=== PATIENT | male | born 1945 | race Caucasian/White ===

== ENCOUNTER 2019-07-29 10:59 | Outpatient (CLI) | payer MEDICARE, OTHER, SELFPAY ==
[2019-07-29 11:34] LABS: Eosinophils # 0.5 10^3/uL (0.0-0.8); Eosinophils % 0.5 %; Hematocrit 36.4 % (42.0-52.0); Hemoglobin 11.1 g/dL (11.7-16.6); Lymphocytes # 93.9 10^3/uL (0.8-4.8); Lymphocytes % 93.9 %; Mean Corpuscular HGB Conc 30.5 g/dL (30.0-36.0); Mean Corpuscular Hemoglobin 27.7 pg (28.0-34.0); Mean Corpuscular Volume 90.8 fL (80-94); Mean Platelet Volume 10.1 fL (7.4-10.4); Monocytes # 0.9 10^3/uL (0.2-0.9); Monocytes % 0.9 %; Neutrophils # 4.4 10^3/uL (1.8-7.7); Neutrophils % 4.4 %; Nucleated Red Blood Cells % 0 %; Platelet Count 144 10^3/cmm (130-400); Red Blood Count 4.01 10^6/uL (4.1-5.3); Red Cell Distribution Width 13.3 % (12.1-15.1)
[2019-07-29 11:51] LABS: Alanine Aminotransferase 13 U/L (0-41); Albumin Level 4.2 g/dL (3.5-5.2); Alkaline Phosphatase 116 IU/L (40-130); Anion Gap 14.7 (5-19); Aspartate Amino Transferase 16 U/L (0-40); Blood Urea Nitrogen 34 mg/dL (8-23); Calcium 9.9 mg/dL (8.5-10.5); Carbon Dioxide 26 mmol/L (22-29); Chloride 101 mmol/L (98-107); Globulin 2.4 g/dL (1.3-4.6); Glucose 138 mg/dL (65-115); Lactate Dehydrogenase 218 U/L (135-225); Potassium 4.7 mmol/L (3.5-5.1); Sodium 137 mmol/L (136-145); Total Bilirubin 0.6 mg/dL (0.15-1.2); Total Protein 6.6 g/dL (6.6-8.7)
[2019-07-29 12:35] LABS: Slide Review Slide Review Perform; White Blood Count 99.9 10^3/uL (4.0-10.0)
--- NOTE | 2019-08-02 06:06 | ONC FU_ITS ---
Dr. Mann Patient Follow-Up Note Patient: Valente Renae Unit #: [id number]: 1945 Dicatated By: Gagandeep Mann M.D.Date of Visit:Jul 29, 2019 Onc Med Follow-up/Prog Note Chief Complaint: Chronic lymphocytic leukemia. History of Present Illness: This is a 74 year-old man with chronic lymphocytic leukemia, Kwok stage III. I had seen him initially in January of 2010 with a mild anemia and thrombocytopenia. At that time, he had been having episodes of low-grade fever with chills and generalized aching. Bone marrow aspiration/biopsy in February of 2010 was mildly hypercellular. It also showed evidence of a monoclonal B-cell lymphoproliferative process consistent with chronic lymphocytic leukemia. It comprised approximately 50% of the marrow cellularity. At that time the leukemia did not appear to be symptomatic, and he was initially just managed with observation. On a followup visit in November 2013 he had reported having 2 more febrile episodes. At that time he was noted to be mildly anemic with hemoglobin 10.7 g and his platelet count was normal at 144,000. His white blood cell count was elevated at 37,000, but that actually was down compared to the study the previous March. His LDH level was significantly elevated at 404/241 units per liter. Bone marrow aspiration/biopsy on 12/22/2013 showed 90 to 100% cellularity with the differential showing 72% lymphocytes. The chromosome analysis showed trisomy [address] scans showed interval splenomegaly with hamzah hepatis lymphadenopathy, the largest measuring 1.8 and 1.9 cm. Also noted was a 9 mm noncalcified pulmonary nodule in the left upper lobe. I had talked to him about the possibility of starting treatment, which he indicated he wanted to put off as long as possible. Followup laboratory studies in December 2013 showed some increase in his lymphocyte count. His hemoglobin was stable and his platelet count was just borderline low. His LDH level had returned to normal, and I opted to continue observation. During subsequent follow-up he continued to have occasional episodes of fever/chills, sometimes associated with nausea/vomiting and diarrhea. He was hospitalized again in January 2015. A subsequent HIDA scan showed no evidence of biliary obstruction, but the gallbladder ejection fraction was low at 19%. More recently he had been having pain in the right flank and right side of the back. He was noted to have a large cyst in the right kidney, and he underwent percutaneous drainage of the cyst on 07/24/2015. That procedure precipitated another spell . I had seen him for a follow-up visit on 08/09/2015. As there was no other obvious explanation for his symptoms, we opted to initiate treatment for the chronic lymphocytic leukemia. He returned on 08/22/2015 to begin cycle one of bendamustine/Rituxan. He did not complete treatment that day because of a mild infusion reaction with the Rituxan. However, with premedication, he was then able to complete his first cycle of treatment on 08/23 and 08/25/2015 with no acute toxicity. However, he subsequently presented with a generalized erythematous, itchy skin eruption. It was undoubtedly a hypersensitivity reaction, most likely to either the Rituxan or to the bendamustine. Allopurinol also was a possibility, though. He was given a short course of systemic steroid followed by topical steroid therapy. He returned 2 days later with swelling in the left arm. Venous Doppler showed features of thrombosis of the left cephalic vein from the anterior cubital fossa to the biceps. Other veins were noted to be patent. As such, I felt there was no definite indication for anticoagulation. On a followup visit in October 2015, the swelling and the skin eruption had resolved. He was feeling much better, and his hemoglobin had increased significantly, to 12.7 g. I did not attempt any further treatment. He was then continued on observation/expectant management. As of his follow-up visit on 08/22/2016 his white blood cell count was just mildly elevated at 17,000 with hemoglobin stable at 13.0 g and platelet count 135,000. He was seen again for a follow-up visit on 12/17/2016. His white blood cell count had increased to 42,000, his hemoglobin was stable at 12.8 g and his platelet count was normal at 148,000. He reported that a week earlier he did experience another episode of nausea/vomiting and chills. Fever was suspected but not documented. At the time of that visit his symptoms had improved significantly, and I opted to just continue with observation. As of his followup visit on 04/23/2017 he had experienced 2 further episodes with fever and nausea/vomiting. Both lasted only a few days and resolved without specific treatment. He had otherwise been feeling good. His white count at that point it increased to 58,000. Hemoglobin/hematocrit levels were stable. The platelet count was mildly decreased at 115,000. He continued observation/expectant management. His other medical illnesses include hypertension, hyperlipidemia, type 2 diabetes, and coronary artery disease. He also has chronic kidney disease which has progressed to stage IV. In October 2014 he was admitted to the hospital with complete heart block, and he underwent placement of a permanent pacemaker. INTERIM HISTORY: He was seen for a follow-up visit again on 11/03/2017. At that point his white blood cell count had increased to 76,800 with his hemoglobin mildly decreased to 10.8 g and platelet count mildly decreased at 101,000. He appeared to be getting more overtly symptomatic, and at that point I did recommend that he begin second line treatment with ibrutinib. In preparation for starting the ibrutinib, he began prophylaxis with allopurinol 300 mg daily. He broke out with an erythematous skin eruption after the first dosage, and it was put on hold. He was then given a prescription for Uloric, but that he also stopped after the first dosage because of concerns of side effects. Ultimately, I did opt to treat him prophylactically with rasburicase, as I felt that he would be at very high risk for tumor lysis. He was given a single dose of rasburicase on 02/11/2018. He then started ibrutinib 420 mg daily on 02/12/2018. During subsequent follow-up, his white blood cell count had initially remained stable or slightly increased, but there was some improvement in the hemoglobin/hematocrit levels. As of 06/19/2018 the hemoglobin was 11.5 g with white blood cell count 82,000 and platelet count 133,000. He continued ibrutinib at 420 mg daily. He was seen for a scheduled visit on 09/14/2018. At that time he had multiple complaints including fatigue, excessive somnolence, and some confusion. His blood counts looked okay, but with those changes I did opt to have him stop the ibrutinib. As of his follow-up visit on 10/07/2018 he was feeling somewhat better, and he continued on observation/expectant management. On 11/03/2018 he had reported recurrence of fever/chills and nausea. He was given IV hydration for 2 days, and his symptoms improved. The preceding week he had required IV hydration for similar symptoms. At that point it did appear likely that his CLL had become symptomatic again. On 12/03/2018 he restarted treatment with ibrutinib at a reduced dosage of 280 mg daily. At day 15 he was given an infusion of rasburicase due to an increase in his uric acid level. During further follow-up, there was an increase in his lymphocyte count, as expected, but he was otherwise tolerating the treatment well. I had seen him for a follow-up visit on 01/27/2019. At that point he had developed severe muscle cramping, and I did opt to put his ibrutinib on hold. On 02/14/2019 he was admitted to the hospital after presenting to the emergency room with chest pain. He was hypertensive, and his creatinine at increased to 3.2 mg/dL. He had a slightly elevated troponin, significance of which was uncertain. A nuclear stress test showed some olvin-infarct ischemia, but mild. He had cardiology consultation with Dr. Orellana, and medical management was recommended. At discharge his creatinine had come back down to 2.8 mg/dL. Metoprolol was added to his medication regimen. He was seen for a follow-up visit on 02/24/2019. At that point he was acutely ill with another sick spell , including nausea/vomiting and diarrhea. He was given IV hydration and symptomatic management. His ibrutinib remained on hold. As of his follow-up visit on 03/03/2019 he was feeling better, and at that point he restarted ibrutinib with a further dose reduction to 140 mg daily. He is seen for a follow-up visit. He is seen for a follow-up visit. He has been feeling pretty good generally, though he has again started having some muscle cramps in his legs and feet since he restarted the ibrutinib. His energy, though, is gaining. His ECOG score is 1. He has good appetite. He has no fever or night sweats. He has some sinus drainage and cough. He does not complain of shortness of breath or chest pain. He has a little bit of heartburn, and he also has constipation. He has frequent urination. He had also noticed some increasing joint pain, mainly in the elbows and knees, but that has now leveled out. He has numbness/tingling in his feet. Medications: Aspirin 1 (81 mg) Tablet Oral daily, Atorvastatin Calcium 1 Tablet (of 10 mg) Oral daily, Cholecalciferol 1 (1000 Units) Tablet Oral daily, Clopidogrel Bisulfate 1 Tablet (of 75 mg) Oral daily, Dutasteride 1 (0.5 mg) Capsule Oral daily, Flonase 1 (50 mcg/act) Suspension Nasal daily, Ibrutinib 1 Capsule Oral daily, Isosorbide Mononitrate ER 1 Tablet (of 60 mg) Tablet SR 24 HR Oral daily, Januvia 1 Tablet (of 100 mg) Oral daily, Lantus 90 Units (of 100 Units/mL) Subcutaneous daily, Loratadine 1 Tablet (of 10 mg) Oral daily, Losartan Potassium 1 Tablet (of 50 mg) Oral daily, Magnesium Oxide 1 Tablet (of 500 ) Oral daily, Metoprolol Tartrate 1 Tablet (of 25 mg) Oral b.i.d., Nitroglycerin Tablet, sublingual Sublingual PRN, Norvasc 1 (10 mg) Tablet Oral daily, NovoLOG (100 Units/mL) Subcutaneous Take as Directed, Tylenol 2 (325 mg) Tablet Oral q 4 hours PRN Allergies: Allopurinol and Iodine. Review of Systems: Constitutional - His energy is pretty good. He does light work at around his home. His appetite is good and weight is stable. No fever, chills, hot flashes, or night sweats. ECOG score is 1, ENMT - He has sinus congestion/drainage with a slight cough. No mouth sores. No sore throat or difficulty swallowing, Hematologic/Lymphatic - He bruises easily, Respiratory - No shortness of breath. No pleuritic pain or hemoptysis, Cardiovascular - No angina pain. No palpitations, Gastrointestinal - No nausea or vomiting. He has had some mild heartburn lately. He has constipation. No blood in the stool or black stools, Genitourinary (M) - No dysuria or hematuria. He has urinary frequency. No urgency or incontinence, Musculoskeletal - He has pain in his elbows and knees, Integumentary - No skin complications, Neurologic - No headache. He has occasional dizziness. He has numbness and tingling in his feet, Psychiatric - No anxiety or depression. No insomnia. Vital Signs: Performed on Jul 29, 2019 13:12 Height - 71.00 in Weight - 246.2 lbs (LOW) BSA - 2.30 sq.m BMI - 34.34 (HIGH) Temperature - 97.8 F (LOW) Pulse - 86 /min Respiration - 24 /min BP - 144/72 mm(hg) (HIGH) O2 Sat - 96 % Pain - 0 Physical Examination: Constitutional - He looks pretty good generally, Eyes - Sclerae nonicteric. Conjunctivae clear, ENMT - There are no lesions noted in the oral cavity, Hematologic/Lymphatic - No cervical, clavicular, or axillary adenopathy, Respiratory - Lungs are clear with good air movement bilaterally, Cardiovascular - Heart rhythm is regular. There is a II/ systolic murmur. There is no gallop or rub noted, Abdomen - Mildy distended. Liver and spleen are not enlarged. There is no abdominal mass or ascites noted and there is no inguinal adenopathy, Extremities - There are mild venous stasis changes. There is slight edema, Neurologic - No focal neurologic deficits noted. Lab/Imaging: Test performed on Jul 29, 2019 11:07 LDH (Total) 218 U/L Sodium 137 mmol/L Potassium 4.7 mmol/L Chloride 101 mmol/L CO2 26 mmol/L Anion Gap 14.7 BUN 34 mg/dL Creatinine 2.5 mg/dL Cr Clearance (Est) 38.4300 mL/min Glucose 138 mg/dL Calcium 9.9 mg/dL Protein, Total 6.6 g/dL Albumin 4.2 g/dL Globulin 2.4 g/dL Bilirubin, Total 0.6 mg/dL ALT (SGPT) 13 U/L AST (SGOT) 16 U/L Alkaline Phosphatase 116 IU/L WBC 99.9 10 3/uL RBC 4.01 10 6/uL HGB 11.1 g/dL HCT 36.4 % MCV 90.8 fL MCH 27.7 pg MCHC 30.5 g/dL RDW 13.3 % Platelet Count 144 10 3/cmm MPV 10.1 fL Neutrophils 4.4 10 3/uL Lymphocytes 93.9 10 3/uL Monocytes 0.9 10 3/uL Eosinophils 0.5 10 3/uL Basophils 0.0 10 3/uL Neutrophil % 4.4 % Lymphocyte % 93.9 % Monocyte % 0.9 % Eosinophil % 0.5 % Basophils % 0.0 % CBC Slide Review Slide Review Perform SLIDE REVIEW AGREES WITH AUTOMATED RESULTS Impression: 1. Patient with chronic lymphocytic leukemia, initially diagnosed in February 2010. He was initially managed with observation, as he had multiple other medical illnesses and he desired conservative management. 2. During his follow-up he continued to have wide fluctuations in his lymphocyte count, for which I had found no rational explanation. He also had remained mildly anemic. His platelet counts had varied between low normal to mildly decreased. On several occasions his LDH level had been significantly elevated, but it was never consistently elevated. 3. Following his visit in July 2015 I did opt to proceed with a trial of therapy with bendamustine/Rituxan. He had a mild infusion reaction with the initial attempt at the Rituxan infusion, and it was abandoned. He then returned on 08/24/2015 and with steroid premedication he was able to complete cycle 1 of bendamustine/Rituxan with no acute toxicity. 4. He subsequently presented with generalized erythroderma, consistent with hypersensitivity reaction to his treatment. He also has developed swelling in the upper extremities. A venous Doppler was suggestive of superficial venous thrombosis in the left arm, though I did not see any evidence of that clinically. The swelling subsequently improved, and the skin eruption subsequently resolved. It is uncertain whether the reaction was to Rituxan, to bendamustine, or to allopurinol. 5. Clinically he has had a very good response to the treatment. His other medical illnesses include: 6. Hypertension. 7. Hyperlipidemia. 8. Type II diabetes. 9. Chronic kidney disease. 10. Coronary artery disease. 11. History of complete heart block, requiring placement of permanent pacemaker. He had significant clinical improvement following a single cycle of treatment with bendamustine/Rituxan in July 2015. The treatment did result in significant toxicity. He had a good recovery and he was then followed on observation/expectant management. As of his follow-up visit on 11/03/2017 he has been showing a gradual increase in his lymphocyte count, and it appeared that his disease was getting symptomatic again. At that point I had recommended that he begin second line treatment with ibrutinib. In preparation for the ibrutinib, he started prophylaxis with allopurinol 300 mg daily, but he developed a generalized skin eruption after the initial dosage. He was then given a prescription for Uloric, but that he also stopped after the initial dosage because of a possible reaction. Ultimately, I did opt to treat him prophylactically with rasburicase, as I felt that he would be at high risk for tumor lysis. He received a single infusion of rasburicase on 02/11/2018, and he then started treatment with ibrutinib 420 mg daily on 02/12/2018. During subsequent follow-up his white blood cell count had initially remained stable, both some improvement in his hemoglobin/hematocrit levels. As of 06/19/2018 his hemoglobin was 11.5 g with white blood cell count 82,000 and platelet count 133,000. He continued ibrutinib at 420 mg daily. As of his follow-up visit on 09/14/2018 his ibrutinib was put on hold due to multiple complaints including fatigue, excessive somnolence, and confusion. During subsequent follow-up his blood counts had remained adequately controlled, though he continued to have significant fatigue. During subsequent follow-up he had multiple episodes of fever and nausea/vomiting, requiring IV hydration. He also had a significant increase in his lymphocyte count, and it did appear likely that his CLL was again symptomatic. On 12/03/2018 he restart her treatment with ibrutinib at a reduced dosage of 280 mg daily. At day 15 he was given an infusion of rasburicase due to an increase in his uric acid level. During further follow-up there was an increase in his lymphocyte count, as expected, but he had no further sick spells or other obvious CLL related symptoms. At his follow-up visit on 01/27/2019 he complained of severe muscle cramping, and his ibrutinib was put on hold. On 02/14/2019 he was admitted to the hospital with chest pain. He was also hypertensive, and his creatinine had increased to 3.2 mg/dL. He was seen by Dr. Orellana, and medical management was recommended. Metoprolol was added to his medication regimen. At discharge his creatinine had come down to 2.8 mg/dL. He presented on 02/24/2019 with an acute episode of nausea/vomiting, diarrhea, and weakness. He had chills and presumed fever. The symptoms were similar to his previous episodes. His lymphocyte count appeared to have come down significantly after the ibrutinib, but in retrospect that was most likely an erroneous laboratory result. His symptoms did improve with IV hydration and symptomatic measures. As of his follow-up visit on 03/03/2019 he restarted ibrutinib with a further dose reduction to 140 mg daily. During follow-up there was an increase in his lymphocyte count, as expected, but that has now stabilized. He has remained mildly anemic and he continues have mild thrombocytopenia. He has had some joint pain and muscle cramps with the ibrutinib, but thus far those side effects have been tolerable. Overall, his clinical status has improved. Plan: He will continue ibrutinib at 140 mg daily. He will be scheduled for a follow-up visit in 6 weeks. Signed By: Gagandeep Mann M.D. <<Signature on File>>
== END 2019-07-29 11:00 | disposition home or self-care (01) ==
LOC: ONCMED 10:59
PROVIDERS: Family Provider Family Medicine; PCP Family Medicine; Visit Provider Internal Medicine Medical Oncology
DX: C91.10 Chronic lymphocytic leukemia of B-cell type not having achieved remission (principal); D69.59 Other secondary thrombocytopenia; M25.50 Pain in unspecified joint; M79.10 Myalgia, unspecified site; T45.1X5A Adverse effect of antineoplastic and immunosuppressive drugs, initial encounter; E78.5 Hyperlipidemia, unspecified; I25.10 Atherosclerotic heart disease of native coronary artery without angina pectoris; I12.9 Hypertensive chronic kidney disease with stage 1 through stage 4 chronic kidney disease, or unspecified chronic kidney disease; N18.4 Chronic kidney disease, stage 4 (severe); E11.42 Type 2 diabetes mellitus with diabetic polyneuropathy; E11.22 Type 2 diabetes mellitus with diabetic chronic kidney disease; Z79.82 Long term (current) use of aspirin; Z79.899 Other long term (current) drug therapy; Z79.02 Long term (current) use of antithrombotics/antiplatelets; Z79.4 Long term (current) use of insulin; Z95.0 Presence of cardiac pacemaker; Z92.25 Personal history of immunosuppression therapy
CPT/HCPCS: 36415; 80053; 83615; 85025; 99214

== ENCOUNTER 2019-09-13 14:45 | Outpatient (CLI) | payer MEDICARE, OTHER, SELFPAY ==
[2019-09-13 16:35] LABS: Eosinophils # 0.1 10^3/uL (0.0-0.8); Eosinophils % 0.2 %; Hematocrit 33.6 % (42.0-52.0); Hemoglobin 10.3 g/dL (11.7-16.6); Lymphocytes % 91.9 %; Mean Corpuscular HGB Conc 30.7 g/dL (30.0-36.0); Mean Corpuscular Hemoglobin 28.6 pg (28.0-34.0); Mean Corpuscular Volume 93.3 fL (80-94); Mean Platelet Volume 10.2 fL (7.4-10.4); Monocytes # 0.8 10^3/uL (0.2-0.9); Monocytes % 1.2 %; Neutrophils # 4.2 10^3/uL (1.8-7.7); Nucleated Red Blood Cells % 0 %; Platelet Count 137 10^3/cmm (130-400); Red Cell Distribution Width 14.4 % (12.1-15.1)
[2019-09-13 16:52] LABS: Alanine Aminotransferase 12 U/L (0-41); Alkaline Phosphatase 88 IU/L (40-130); Anion Gap 17.5 (5-19); Aspartate Amino Transferase 12 U/L (0-40); Blood Urea Nitrogen 46 mg/dL (8-23); Calcium 9.5 mg/dL (8.5-10.5); Carbon Dioxide 24 mmol/L (22-29); Chloride 103 mmol/L (98-107); Globulin 2.6 g/dL (1.3-4.6); Glucose 129 mg/dL (65-115); Lactate Dehydrogenase 173 U/L (135-225); Osmolality Calculated 290 mOsm/kg (285-295); Potassium 4.5 mmol/L (3.5-5.1); Sodium 140 mmol/L (136-145); Total Bilirubin 0.4 mg/dL (0.15-1.2); Total Protein 6.6 g/dL (6.6-8.7)
[2019-09-13 18:08] LABS: Slide Review Slide Review Perform
[2019-09-13 18:09] LABS: Neutrophils % 6.3 %
[2019-09-13 18:10] LABS: White Blood Count 67.4 10^3/uL (4.0-10.0)
[2019-09-13 18:12] LABS: Absolute Segmented Neutrophil 5.3 10/cmm (1.6-7.1); Lymphocytes 89 %; Monocytes Absolute 1.3 10^3/cmm (0.1-0.6); Segmented Neutrophils 8 %; Total Cells Counted 100 (0-100)
[2019-09-13 18:13] LABS: Anisocytosis 1+; Platelet Estimate Normal (Normal); Poikilocytosis 1+; Smudge Cells 1+
[2019-09-13 18:15] LABS: Blastocytes 1 % (0-0)
== END 2019-09-13 14:46 | disposition home or self-care (01) ==
LOC: ONCMED 15:54
PROVIDERS: Family Provider Family Medicine; PCP Family Medicine; Visit Provider Internal Medicine Medical Oncology
DX: C91.10 Chronic lymphocytic leukemia of B-cell type not having achieved remission (principal)
CPT/HCPCS: 80053; 83615; 85007; 85025

== ENCOUNTER 2019-12-02 10:04 | Emergency (ER) | payer MEDICARE, OTHER, SELFPAY ==
[2019-12-02 10:06] VITALS: BP 125/71; PULSE 68; RESP 16; TEMP 36.6; O2SAT 94; BMI 35.9
--- NOTE | 2019-12-02 10:29 | XR_ITS ---
WS: [id number] Portable AP upright chest, 12/02/2019 Clinical Data: cp Comparison: Portable chest, 02/14/2019. Findings: No nodules, masses or effusions are seen. The heart is normal. The pulmonary vascularity is not increased. No pneumonia or pneumothorax is seen. Midline sternotomy sutures are present. There i s a permanent pacemaker with wires in the cardiac chambers. The generator overlies the left axilla. M onitor leads are on the chest wall. XR/XR chest 1V portable [id number] Impression: No change in pacemaker.
--- NOTE | 2019-12-02 10:29 | ECG_ITS ---
Measurements Intervals [place] Rate: 77 P: 154 [place]: 215 QRS: -78 QRSD: 177 T: 68 QT: 419 QTc: 476 ELECTRONIC ATRIAL PACEMAKER ELECTRONIC VENTRICULAR PACEMAKER ABNORMAL RHYTHM ECG Compared to ECG 02/14/2019 09:21:45 No significant changes Electronically Signed On 12-02-2019 20:54:17 CDT by Orlando Juarez M.D. [email or web address]
[2019-12-02 10:44] LABS: Eosinophils # 0.5 10^3/uL (0.0-0.8); Eosinophils % 0.5 %; Hematocrit 37.7 % (42.0-52.0); Hemoglobin 11.6 g/dL (11.7-16.6); Lymphocytes % 92.6 %; Mean Corpuscular HGB Conc 30.8 g/dL (30.0-36.0); Mean Corpuscular Hemoglobin 28.6 pg (28.0-34.0); Mean Corpuscular Volume 92.9 fL (80-94); Mean Platelet Volume 10.9 fL (7.4-10.4); Monocytes # 1.1 10^3/uL (0.2-0.9); Monocytes % 1.2 %; Neutrophils # 4.9 10^3/uL (1.8-7.7); Neutrophils % 5.4 %; Nucleated Red Blood Cells % 0 %; Platelet Count 140 10^3/cmm (130-400); Red Blood Count 4.06 10^6/uL (4.1-5.3); Red Cell Distribution Width 14.6 % (12.1-15.1)
--- NOTE | 2019-12-02 10:46 | ED_ITS ---
HPI - Chest Pain General: Chief Complaint: Chest Pain Stated Complaint: CHEST PAIN Time Seen by Provider: 12/02/19 10:17 History of Present Illness: HPI narrative: Atypical mid epigastric and lower chest pain that began while the patient was eating a sausage biscuit. Patient felt short of breath and nauseated and diaphoretic. Patient does have a cardiac history and states that today's episode was different from any he has had in the past. Patient is pain free in the ER. MD complaint: chest pain Pertinent past history: coronary artery disease, prior GA and CABG Onset (ago): minute(s) Timing of current episode: now resolved Prior episodes: Yes Onset: after eating Pain location: epigastric Pain radiation: none Severity: severe Quality: burning Relieving factors: nothing Exacerbating factors: nothing Associated symptoms: Reports diaphoresis, dyspnea and nausea Treatment prior to arrival: none Review of Systems General: Reports: 10 or more systems reviewed and unremarkable except in HPI and below Const: Reports: diaphoresis Resp: Reports: dyspnea GI: Reports: nausea PFSH ED PFSH: Medical History ASHD (arteriosclerotic heart disease) Carotid stenosis, bilateral CKD (chronic kidney disease) CLL (chronic lymphocytic leukemia) Diabetes Dyslipidemia HTN (hypertension) Surgical History S/P CABG (coronary artery bypass graft) S/P PTCA (percutaneous transluminal coronary angioplasty) Status cardiac pacemaker Family History Mother Diabetes CAD (coronary artery disease) Father CAD (coronary artery disease) Hypertension Other Stroke Social History Smoking and tobacco status: former smoker Alcohol intake: current Alcohol intake frequency: holidays/special occasions only Household members: spouse Marital status: Physical Exam Const: COMMON NORMALS: no acute distress, average body habitus, alert and well nourished GENERAL APPEARANCE: cooperative, comfortable and well kempt; not in distress HENMT: COMMON NORMALS: normocephalic, atraumatic, hearing grossly normal bilaterally, external ears normal, EAC's normal, TM's normal bilaterally, Normal external nose present, Normal nasal mucous membranes and turbinates present, moist oral mucous membranes, oropharynx normal, dentition normal and gingiva normal HEAD & SCALP: normocephalic and atraumatic NOSE: Normal external nose present and Normal nasal mucous membranes and turbinates present EXTERNAL EAR: Yes external ears normal EXTERNAL AUDITORY CANAL: EAC's normal TYMPANIC MEMBRANE: TM's normal bilaterally Eye: COMMON NORMALS: Equal, round and reactive pupils present, EOMs intact bilaterally, conjunctivae normal, no scleral icterus, no papilledema, normal visual sarah by confrontation and fundi normal bilaterally CONJUNCTIVA: Yes conjunctivae normal PUPIL: Yes Equal, round and reactive pupils present DIRECT OPHTHALMOSCOPY: Yes no papilledema and Yes fundi normal bilaterally Neck/C-Spine: COMMON NORMALS: full ROM, no lymphadenopathy, supple, no meningeal signs, no JVD, Thyroid normal and No carotid bruits THYROID: Thyroid normal Chest: COMMONS NORMALS: normal inspection of the chest and normal palpation of entire chest wall Resp: COMMON NORMALS: normal respiratory effort, No retractions, No use of accessory muscles, clear to auscultation bilaterally and percussion normal AUSCULTATION: clear to auscultation bilaterally PERCUSSION: percussion normal Cardio: COMMON NORMALS: no JVD, regular rate, regular rhythm, S1 normal heart sound present, S2 normal heart sound present, No gallops present (Cardio), No clicks present (Cardio), No murmurs present (Cardio), No rub (Cardio) and Peripheral pulses 2+ throughout RATE: regular rate RHYTHM: regular rhythm HEART SOUNDS: S1 normal heart sound present and S2 normal heart sound present PERIPHERAL PULSES: Peripheral pulses 2+ throughout GI: COMMON NORMALS: Normal to inspection, nondistended, normoactive bowel s ounds present, Soft to palpation, non-tender, No hepatosplenomegaly present, no masses and no bruits PALPATION: Yes Soft to palpation and Yes No hepatosplenomegaly present Back/Pelvis: COMMON NORMALS: thoracic and lumbar spine normal to inspection, no thoracic nor lumbar tenderness, thoraco-lumbar ROM normal and straight leg raise negative bilaterally Extremity: COMMON NORMALS: normal to inspection, full ROM, capillary refill normal, no joint enlargement, no clubbing, cyanosis or edema, no calf tenderness and no pedal edema Neuro: SENSORIUM/ORIENTATION: Yes alert and Yes somnolent MENINGEAL SIGNS: Yes no meningeal signs Psych: APPEARANCE: Yes well kempt Skin: COMMON NORMALS: no rashes or lesions noted, no wounds, no jaundice and no mottling GENERAL SKIN EXAM: no rashes or lesions noted Course Vital Signs: Vital signs: Vital Signs Temperature 97.9 F 12/02/19 10:06 Pulse Rate 63 12/02/19 12:00 Respiratory Rate 16 12/02/19 12:00 Blood Pressure 130/83 12/02/19 12:00 Pulse Oximetry 98 12/02/19 12:00 MDM - Chest Pain Lab Data: Labs: Lab Results 12/02/19 12/02/19 12/02/19 Range/Units 10:00 10:00 10:00 WBC 91.8 H* (4.0-10.0) 10^3/ uL RBC 4.06 L (4.1-5.3) 10^6/u L Hgb 11.6 L (11.7-16.6) g/dL Hct 37.7 L (42.0-52.0) % MCV 92.9 (80-94) fL MCH 28.6 (28.0-34.0) pg MCHC 30.8 (30.0-36.0) g/dL RDW 14.6 (12.1-15.1) % Plt Count 140 (130-400) 10^3/c mm MPV 10.9 H (7.4-10.4) fL Neut % (Auto) 5.4 % Lymph % (Auto) 92.6 % [place] % (Auto) 1.2 % Eos % (Auto) 0.5 % Baso % (Auto) 0.0 % Neut # (Auto) 4.9 (1.8-7.7) 10^3/u L Lymph # (Auto) 85.0 H (0.8-4.8) 10^3/u L [place] # (Auto) 1.1 H (0.2-0.9) 10^3/u L Eos # (Auto) 0.5 (0.0-0.8) 10^3/u L Baso # (Auto) 0.0 (0.0-0.1) 10^3/u L Nucleated RBC % (a uto) 0 % Nucleated RBCs # 0.0 /100WBC Sodium 139 (136-145) mmol/L Potassium 5.0 (3.5-5.1) mmol/L Chloride 101 (98-107) mmol/L Carbon Dioxide 23 (22-29) mmol/L Anion Gap 20.0 H (5-19) BUN 42 H (8-23) mg/dL Creatinine 2.7 H (0.7-1.2) mg/dL Glucose 242 H (65-115) mg/dL Calculated Osmolal ity 294 (285-295) mOsm/k g Calcium 9.9 (8.5-10.5) mg/dL Total Bilirubin 0.9 (0.15-1.2) mg/dL AST 39 (0-40) U/L ALT 23 (0-41) U/L Alkaline Phosphata se 99 (40-130) IU/L Troponin T Baselin e 53 H (0-15) ng/L Troponin T 120 Min [place] (0-15) ng/L Delta Troponin T (0-10) ABS# NT-Pro-B Natriuret Pep 424 (0-450) pg/mL Total Protein 6.8 (6.6-8.7) g/dL Albumin 4.6 (3.5-5.2) g/dL Globulin 2.2 (1.3-4.6) g/dL Lipase 472 H (13-60) U/L /05/12 Range/Units 12:22 WBC (4.0-10.0) 10^3/ uL RBC (4.1-5.3) 10^6/u L Hgb (11.7-16.6) g/dL Hct (42.0-52.0) % MCV (80-94) fL MCH (28.0-34.0) pg MCHC (30.0-36.0) g/dL RDW (12.1-15.1) % Plt Count (130-400) 10^3/c mm MPV (7.4-10.4) fL Neut % (Auto) % Lymph % (Auto) % [place] % (Auto) % Eos % (Auto) % Baso % (Auto) % Neut # (Auto) (1.8-7.7) 10^3/u L Lymph # (Auto) (0.8-4.8) 10^3/u L [place] # (Auto) (0.2-0.9) 10^3/u L Eos # (Auto) (0.0-0.8) 10^3/u L Baso # (Auto) (0.0-0.1) 10^3/u L Nucleated RBC % (a uto) % Nucleated RBCs # /100WBC Sodium (136-145) mmol/L Potassium (3.5-5.1) mmol/L Chloride (98-107) mmol/L Carbon Dioxide (22-29) mmol/L Anion Gap (5-19) BUN (8-23) mg/dL Creatinine (0.7-1.2) mg/dL Glucose (65-115) mg/dL Calculated Osmolal ity (285-295) mOsm/k g Calcium (8.5-10.5) mg/dL Total Bilirubin (0.15-1.2) mg/dL AST (0-40) U/L ALT (0-41) U/L Alkaline Phosphata se (40-130) IU/L Troponin T Baselin e (0-15) ng/L Troponin T 120 Min [place] 48.62 H (0-15) ng/L Delta Troponin T -4.38 L (0-10) ABS# NT-Pro-B Natriuret Pep (0-450) pg/mL Total Protein (6.6-8.7) g/dL Albumin (3.5-5.2) g/dL Globulin (1.3-4.6) g/dL Lipase (13-60) U/L Discharge Plan Discharge Patient Disposition: Home, Self-Care Clinical Impression: Atypical chest pain Condition: Stable Prescriptions: No Action nitroglycerin [Nitrostat] 0.4 mg tablet, sublingual 0.4 mg SUBLINGUAL Q5M PRN (Reason: Chest Pain) RF: 0 atorvastatin 10 mg tablet 10 mg PO DAILY RF: 0 amlodipine 10 mg tablet 10 mg PO DAILY RF: 0 losartan 50 mg tablet 50 mg PO DAILY RF: 0 clopidogrel 75 mg tablet 75 mg PO DAILY RF: 0 metoprolol tartrate 25 mg tablet 25 mg PO BID RF: 0 dutasteride [Avodart] 0.5 mg capsule 0.5 mg PO DAILY RF: 0 ibrutinib 140 mg tablet 280 mg PO DAILY RF: 0 Januvia 100 mg tablet 100 mg PO DAILY RF: 0 cholecalciferol (vitamin D3) 25 mcg (1,000 unit) capsule 25 mcg PO DAILY RF: 0 magnesium oxide 400 mg magnesium tablet 400 mg PO BID RF: 0 loratadine 10 mg tablet 10 mg PO DAILY RF: 0 aspirin [Aspir-81] 81 mg tablet,delayed release (DR/EC) 81 mg PO DAILY RF: 0 Colace 100 mg Capsule 100 mg PO BID PRN (Reason: Constipation) RF: 0 Flonase Allergy Relief 50 mcg/actuation [place],Suspension 1 spray INTRANASAL BID RF: 0 Novolog Flexpen U-100 Insulin 100 unit/mL (3 mL) Insulin Pen See Rx Instructions .ROUTE .COMPLEX RF: 0 Lantus Solostar U-100 Insulin 100 unit/mL (3 mL) Insulin Pen 50 unit SUBCUT BEDTIME RF: 0 diclofenac sodium 1 % Gel 4 g TOPICAL QID PRN (Reason: Pain) RF: 0 isosorbide mononitrate 30 mg tablet extended release 24 hr 60 mg PO QAM RF: 0 Discharge Orders: Discharge Order (Routine); Ordered 12/02/19 Ordered By: Toño Hensley Referrals: Alejandro Macias MD [Primary Care Provider] - Coding Level of Care Code ED Pcas for Chg Fwd Exam Comprehensive
[2019-12-02 10:51] LABS: Troponin(5th) Baseline 53 ng/L (0-15)
[2019-12-02 11:00] LABS: Alanine Aminotransferase 23 U/L (0-41); Albumin Level 4.6 g/dL (3.5-5.2); Alkaline Phosphatase 99 IU/L (40-130); Aspartate Amino Transferase 39 U/L (0-40); Blood Urea Nitrogen 42 mg/dL (8-23); Calcium 9.9 mg/dL (8.5-10.5); Carbon Dioxide 23 mmol/L (22-29); Chloride 101 mmol/L (98-107); Globulin 2.2 g/dL (1.3-4.6); Glucose 242 mg/dL (65-115); NT Pro B Type Natriuretic Pept 424 pg/mL (0-450); Osmolality Calculated 294 mOsm/kg (285-295); Sodium 139 mmol/L (136-145); Total Bilirubin 0.9 mg/dL (0.15-1.2); Total Protein 6.8 g/dL (6.6-8.7)
[2019-12-02 11:01] LABS: Slide Review Slide Review Perform; White Blood Count 91.8 10^3/uL (4.0-10.0)
[2019-12-02 11:16] LABS: Lipase 472 U/L (13-60)
[2019-12-02 12:00] VITALS: BP 130/83; PULSE 63; RESP 16; O2SAT 98
--- NOTE | 2019-12-02 12:29 | ECG_ITS ---
Measurements Intervals [place] Rate: 62 P: 152 CA: 195 QRS: -70 QRSD: 188 T: 58 QT: 455 QTc: 464 ELECTRONIC ATRIAL PACEMAKER ELECTRONIC VENTRICULAR PACEMAKER ABNORMAL RHYTHM ECG Compared to ECG 02/14/2019 09:21:45 No significant changes Electronically Signed On 12-02-2019 21:01:47 CDT by Orlando Juarez M.D. [email or web address]
[2019-12-02 12:55] LABS: Troponin 5 2HR 48.62 ng/L (0-15)
[2019-12-02 12:57] LABS: Troponin 5 2HR Delta -4.38 ABS# (0-10)
[2019-12-02 13:48] VITALS: BP 142/65; PULSE 62; RESP 14
== END 2019-12-02 13:55 | disposition home or self-care (01) ==
PROVIDERS: Emergency Provider Family Medicine; PCP Family Medicine
DX: R07.89 Other chest pain (principal); Z79.02 Long term (current) use of antithrombotics/antiplatelets; Z79.82 Long term (current) use of aspirin; Z79.4 Long term (current) use of insulin; E11.9 Type 2 diabetes mellitus without complications; E78.5 Hyperlipidemia, unspecified; I10 Essential (primary) hypertension; Z95.1 Presence of aortocoronary bypass graft; Z95.0 Presence of cardiac pacemaker; Z87.891 Personal history of nicotine dependence
CPT/HCPCS: 12345; 36415; 71045; 80053; 83690; 83880; 84484; 85025; 93005; 99283; 99284

== ENCOUNTER 2020-01-19 09:15 | Outpatient (CLI) | payer MEDICARE, OTHER, SELFPAY ==
[2020-01-19 09:53] LABS: Basophils % 0.1 %; Eosinophils # 0.3 10^3/uL (0.0-0.8); Eosinophils % 0.6 %; Lymphocytes # 47.3 10^3/uL (0.8-4.8); Lymphocytes % 90.5 %; Mean Corpuscular HGB Conc 30.8 g/dL (30.0-36.0); Mean Corpuscular Hemoglobin 28.2 pg (28.0-34.0); Mean Corpuscular Volume 91.8 fL (80-94); Mean Platelet Volume 10.6 fL (7.4-10.4); Monocytes # 0.6 10^3/uL (0.2-0.9); Monocytes % 1.1 %; Neutrophils # 3.91 10^3/uL (1.8-7.7); Neutrophils % 7.4 %; Nucleated Red Blood Cells % 0 %; Platelet Count 114 10^3/cmm (130-400); Red Blood Count 4.25 10^6/uL (4.1-5.3); Red Cell Distribution Width 14.2 % (12.1-15.1)
[2020-01-19 10:10] LABS: Alanine Aminotransferase 13 U/L (0-41); Albumin Level 4.5 g/dL (3.5-5.2); Alkaline Phosphatase 96 IU/L (40-130); Anion Gap 14.8 (5-19); Aspartate Amino Transferase 11 U/L (0-40); Blood Urea Nitrogen 45 mg/dL (8-23); Calcium 9.9 mg/dL (8.5-10.5); Carbon Dioxide 24 mmol/L (22-29); Chloride 102 mmol/L (98-107); Globulin 2.2 g/dL (1.3-4.6); Glucose 300 mg/dL (65-115); Osmolality Calculated 291 mOsm/kg (285-295); Potassium 4.8 mmol/L (3.5-5.1); Sodium 136 mmol/L (136-145); Total Bilirubin 0.6 mg/dL (0.15-1.2); Total Protein 6.7 g/dL (6.6-8.7); Uric Acid 6.8 mg/dL (3.4-7.0)
[2020-01-19 10:23] LABS: Slide Review Slide Review Perform; White Blood Count 52.3 10^3/uL (4.0-10.0)
--- NOTE | 2020-01-23 15:55 | ONC FU_ITS ---
[facility] Patient Note Patient: Valente Renae Unit #: [id number]: 1945 Dictated By: Naga SantamariaDate of Visit: Jan 19, 2020 Onc MED Follow-Up/Prog Note Chief Complaint: Chronic lymphocytic leukemia. History of Present Illness: Mr Renae is a 74 year-old man with chronic lymphocytic leukemia, Kwok stage III. He was seen initially in January of 2010 with a mild anemia and thrombocytopenia. At that time, he had been having episodes of low-grade fever with chills and generalized aching. Bone marrow aspiration/biopsy in February of 2010 was mildly hypercellular. It also showed evidence of a monoclonal B-cell lymphoproliferative process consistent with chronic lymphocytic leukemia. It comprised approximately 50% of the marrow cellularity. At that time the leukemia did not appear to be symptomatic, and he was initially just managed with observation. On a followup visit in November 2013 he had reported having 2 more febrile episodes. At that time he was noted to be mildly anemic with hemoglobin 10.7 g and his platelet count was normal at 144,000. His white blood cell count was elevated at 37,000, but that actually was down compared to the study the previous March. His LDH level was significantly elevated at 404/241 units per liter. Bone marrow aspiration/biopsy on 12/22/2013 showed 90 to 100% cellularity with the differential showing 72% lymphocytes. The chromosome analysis showed trisomy [address] scans showed interval splenomegaly with hamzah hepatis lymphadenopathy, the largest measuring 1.8 and 1.9 cm. Also noted was a 9 mm noncalcified pulmonary nodule in the left upper lobe. Dr Mnan had talked to him about the possibility of starting treatment, which he indicated he wanted to put off as long as possible. Followup laboratory studies in December 2013 showed some increase in his lymphocyte count. His hemoglobin was stable and his platelet count was just borderline low. His LDH level had returned to normal, and it was opted to continue observation. During subsequent follow-up he continued to have occasional episodes of fever/chills, sometimes associated with nausea/vomiting and diarrhea. He was hospitalized again in January 2015. A subsequent HIDA scan showed no evidence of biliary obstruction, but the gallbladder ejection fraction was low at 19%. More recently he had been having pain in the right flank and right side of the back. He was noted to have a large cyst in the right kidney, and he underwent percutaneous drainage of the cyst on 07/24/2015. That procedure precipitated another spell . Dr Mann had seen him for a follow-up visit on 08/09/2015. As there was no other obvious explanation for his symptoms, we opted to initiate treatment for the chronic lymphocytic leukemia. He returned on 08/22/2015 to begin cycle one of bendamustine/Rituxan. He did not complete treatment that day because of a mild infusion reaction with the Rituxan. However, with premedication, he was then able to complete his first cycle of treatment on 08/23 and 08/25/2015 with no acute toxicity. However, he subsequently presented with a generalized erythematous, itchy skin eruption. It was undoubtedly a hypersensitivity reaction, most likely to either the Rituxan or to the bendamustine. Allopurinol also was a possibility, though. He was given a short course of systemic steroid followed by topical steroid therapy. He returned 2 days later with swelling in the left arm. Venous Doppler showed features of thrombosis of the left cephalic vein from the anterior cubital fossa to the biceps. Other veins were noted to be patent. As such, Dr Mann felt there was no definite indication for anticoagulation. On a followup visit in October 2015, the swelling and the skin eruption had resolved. He was feeling much better, and his hemoglobin had increased significantly, to 12.[address] Mann did not attempt any further treatment. He was then continued on observation/expectant management. As of his follow-up visit on 08/22/2016 his white blood cell count was just mildly elevated at 17,000 with hemoglobin stable at 13.0 g and platelet count 135,000. He was seen again for a follow-up visit on 12/17/2016. His white blood cell count had increased to 42,000, his hemoglobin was stable at 12.8 g and his platelet count was normal at 148,000. He reported that a week earlier he did experience another episode of nausea/vomiting and chills. Fever was suspected but not documented. At the time of that visit his symptoms had improved significantly, and I opted to just continue with observation. As of his followup visit on 04/23/2017 he had experienced 2 further episodes with fever and nausea/vomiting. Both lasted only a few days and resolved without specific treatment. He had otherwise been feeling good. His white count at that point it increased to 58,000. Hemoglobin/hematocrit levels were stable. The platelet count was mildly decreased at 115,000. He continued observation/expectant management. His other medical illnesses include hypertension, hyperlipidemia, type 2 diabetes, and coronary artery disease. He also has chronic kidney disease which has progressed to stage IV. In October 2014 he was admitted to the hospital with complete heart block, and he underwent placement of a permanent pacemaker. INTERIM HISTORY: He was seen for a follow-up visit again on 11/03/2017. At that point his white blood cell count had increased to 76,800 with his hemoglobin mildly decreased to 10.8 g and platelet count mildly decreased at 101,000. He appeared to be getting more overtly symptomatic, and at that point Dr Mann did recommend that he begin second line treatment with ibrutinib. In preparation for starting the ibrutinib, he began prophylaxis with allopurinol 300 mg daily. He broke out with an erythematous skin eruption after the first dosage, and it was put on hold. He was then given a prescription for Uloric, but that he also stopped after the first dosage because of concerns of side effects. Ultimately, Dr Mann did opt to treat him prophylactically with rasburicase, as it was felt that he would be at very high risk for tumor lysis. He was given a single dose of rasburicase on 02/11/2018. He then started ibrutinib 420 mg daily on 02/12/2018. During subsequent follow-up, his white blood cell count had initially remained stable or slightly increased, but there was some improvement in the hemoglobin/hematocrit levels. As of 06/19/2018 the hemoglobin was 11.5 g with white blood cell count 82,000 and platelet count 133,000. He continued ibrutinib at 420 mg daily. He was seen for a scheduled visit on 09/14/2018. At that time he had multiple complaints including fatigue, excessive somnolence, and some confusion. His blood counts looked okay, but with those changes Dr Mann did opt to have him stop the ibrutinib. As of his follow-up visit on 10/07/2018 he was feeling somewhat better, and he continued on observation/expectant management. On 11/03/2018 he had reported recurrence of fever/chills and nausea. He was given IV hydration for 2 days, and his symptoms improved. The preceding week he had required IV hydration for similar symptoms. At that point it did appear likely that his CLL had become symptomatic again. On 12/03/2018 he restarted treatment with ibrutinib at a reduced dosage of 280 mg daily. At day 15 he was given an infusion of rasburicase due to an increase in his uric acid level. During further follow-up, there was an increase in his lymphocyte count, as expected, but he was otherwise tolerating the treatment well. Dr Mann had seen him for a follow-up visit on 01/27/2019. At that point he had developed severe muscle cramping, and it was opted to put his ibrutinib on hold. On 02/14/2019 he was admitted to the hospital after presenting to the emergency room with chest pain. He was hypertensive, and his creatinine at increased to 3.2 mg/dL. He had a slightly elevated troponin, significance of which was uncertain. A nuclear stress test showed some olvin-infarct ischemia, but mild. He had cardiology consultation with Dr. Orellana, and medical management was recommended. At discharge his creatinine had come back down to 2.8 mg/dL. Metoprolol was added to his medication regimen. He was seen for a follow-up visit on 02/24/2019. At that point he was acutely ill with another sick spell , including nausea/vomiting and diarrhea. He was given IV hydration and symptomatic management. His ibrutinib remained on hold. As of his follow-up visit on 03/03/2019 he was feeling better, and at that point he restarted ibrutinib with a further dose reduction to 140 mg daily. He has tolerated it well thus far. Mr. Renae is here today for unscheduled visit. He called and with complaints of . He states he had been having some joint pain and foot pain. He actually describes the foot pain more in the arch of his foot than in a particular joint. He states his been going on for about 2 weeks. He states the pain is been dull and radiates to the first joint. He states at times it hurts to bear weight on it and other times it is fine. He denies any redness or warmth of the joint. He states he is never had gout before either. He states other than the foot issue he feels good. He has had no further 6 pills . He is eating good. His energy is fair. He is staying active with his grandkids. He denies any mouth sores, sore throat or difficulty swallowing. He said no further chest pain or palpitations. He denies any nausea or vomiting. His ECOG is 1. He states his blood sugars have been running really good at home most the time less than 150 and generally fasting has been less than 100. Past Medical History: Chronic kidney disease (stage III) Coronary artery disease Diabetes type II (Treated) Hyperlipidemia (Treated) Hypertension (Treated) Leukemia in 2009 Anemia in 2009 Past Surgical History: Appendectomy Removal of benign growth - from left testicle Stent placement in 2018 Pacemaker placement in 2014 Bone marrow aspiration in 2009 Bone marrow biopsy in 2009 Angioplasty/Stent in 2005 Quadruple bypass in 2004 Allergies: Allopurinol and Iodine. Medications: Aspirin 1 (81 mg) Tablet Oral daily Atorvastatin Calcium 1 Tablet (of 10 mg) Oral daily Cholecalciferol 1 (1000 Units) Tablet Oral daily Clopidogrel Bisulfate 1 Tablet (of 75 mg) Oral daily Dutasteride 1 (0.5 mg) Capsule Oral daily Flonase 1 (50 mcg/act) Suspension Nasal daily Ibrutinib 1 Capsule Oral daily Isosorbide Mononitrate ER 1 Tablet (of 60 mg) Tablet SR 24 HR Oral daily Januvia 1 Tablet (of 100 mg) Oral daily Lantus 90 Units (of 100 Units/mL) Subcutaneous daily Loratadine 1 Tablet (of 10 mg) Oral daily Losartan Potassium 1 Tablet (of 50 mg) Oral daily Magnesium Oxide 1 Tablet (of 500 ) Oral daily Metoprolol Tartrate 1 Tablet (of 25 mg) Oral b.i.d. Nitroglycerin Tablet, sublingual Sublingual PRN Norvasc 1 (10 mg) Tablet Oral daily NovoLOG (100 Units/mL) Subcutaneous Take as Directed Tylenol 2 (325 mg) Tablet Oral q 4 hours PRN Family History: Mr. Renae's mother at age 73: medical history includes diabetes and Heart disease. Mr. Renae's father at age 59: suicide. Mr. Renae's maternal grandmother is : medical history includes diabetes. His paternal grandmother is : medical history includes diabetes. Mr. Renae has 1 brother with an unknown alive status: medical history includes Heart disease. Social History: Mr. Renae is and he is retired. Mr. Renae no longer smokes. He drinks occasionally. He has indicated exposure to the following products: cigarettes. Review Of Symptoms: Constitutional Denies fevers, chills, night sweats, excessive fatigue or weight loss. Allergic/Immunologic No reactions. Eyes Denies significant visual changes. No diplopia. No amaurosis. ENMT Denies changes in hearing, sore throat, difficulty or changes in swallowing ability, and/or sinus drainage. Endocrine Denies hot flashes or night sweats. Hematologic/Lymphatic Denies easy bruising or bleeding. The patient denies any tender or palpable lymph nodes. Respiratory Denies dyspnea on exertion, chest pain, cough or hemoptysis. Denies orthopnea. Cardiovascular No angina pain. No palpitations. Gastrointestinal Denies nausea, vomiting, diarrhea, GI bleeding, or constipation. Denies change in bowel habits and/or stool color, no heartburn or early satiety. Genitourinary (M) Denies hematuria, dysuria, increased frequency, urgency, hesitancy or incontinence. Musculoskeletal Denies joint pain, swelling or redness. No decreased range of motion. Integumentary Denies chronic rashes, inflammation, ulcerations or skin changes. Neurologic Denies headache, blurred vision, and no areas of focal weakness or numbness. Altered gait due to bilateral food pain. . No sensory problems. Psychiatric Denies insomnia, depression, hilario or mood swings. Vital Signs: Performed on Jan 19, 2020 11:09 Height - 71.00 in Weight - 244.2 lbs (LOW) BSA - 2.30 sq.m BMI - 34.06 (HIGH) Temperature - 98.0 F (LOW) Pulse - 86 /min Respiration - 17 /min BP - 134/70 mm(hg) O2 Sat - 94 % (LOW) Pain - 7,2 - Ambulatory/capable of all self-care, unable to perform any work activities. Up and about more than 50% of waking hours. (ECOG) Physical Examination: Constitutional Alert, oriented, no acute distress. Skin pink, warm and dry. Head Normocephalic; atraumatic. Eyes Conjunctivae and sclerae are clear and without icterus. Pupils are reactive and equal. Neck Supple without masses or thyromegaly. No jugular venous distension. Hematologic/Lymphatic No petechiae or purpura. No tender or palpable lymph nodes in the cervical or supraclavicular area. Respiratory Lungs are clear to auscultation without rhonchi or wheezing. Cardiovascular Regular rate and rhythm of heart without murmurs,clicks, gallops or rubs. Abdomen Non-tender, non-distended, no masses, ascites. Good bowel sounds noted in all quads. No guarding or rebound tenderness. No pulsatile masses. Back/Spine Non-tender to palpation. Extremities No visible deformities, no cyanosis, clubbing or edema. Right knee is slightly swollen without redness or warmth. His feet are normal in appearance without any obvious changes. There is no swelling or redness in the joints or tissue. Musculoskeletal No tenderness or swelling, normal range of motion without obvious weakness. Integumentary No evidence of blistering, bruising, dry skin, erythema, nails changes, rash and urticaria. Neurologic No sensory or motor deficits, normal cerebellar function, normal gait. Psychiatric Alert and oriented times three. Coherent speech. Verbalizes understanding of our discussions today. Laboratory:Test performed on Jan 19, 2020 09:30 Sodium 136 mmol/L Uric Acid 6.8 mg/dL Potassium 4.8 mmol/L Chloride 102 mmol/L CO2 24 mmol/L Anion Gap 14.8 BUN 45 mg/dL Creatinine 2.6 mg/dL Cr Clearance (Est) 36.9500 mL/min Glucose 300 mg/dL Calcium 9.9 mg/dL Protein, Total 6.7 g/dL Albumin 4.5 g/dL Globulin 2.2 g/dL Bilirubin, Total 0.6 mg/dL ALT (SGPT) 13 U/L AST (SGOT) 11 U/L Alkaline Phosphatase 96 IU/L WBC 52.3 10 3/uL RBC 4.25 10 6/uL HGB 12.0 g/dL HCT 39.0 % MCV 91.8 fL MCH 28.2 pg MCHC 30.8 g/dL RDW 14.2 % Platelet Count 114 10 3/cmm MPV 10.6 fL Neutrophils 3.91 10 3/uL Lymphocytes 47.3 10 3/uL Monocytes 0.6 10 3/uL Eosinophils 0.3 10 3/uL Basophils 0.0 10 3/uL Neutrophil % 7.4 % Lymphocyte % 90.5 % Monocyte % 1.1 % Eosinophil % 0.6 % Basophils % 0.1 % NRBC % 0 % CBC Slide Review Slide Review Perform SLIDE REVIEW AGREES WITH AUTOMATED RESULTS ST Test performed on Sep 13, 2019 14:45 LDH (Total) 173 U/L Manual Lymphs % 89 % Manual Monos % 2.0 % Smudge Cells 1+ Anisocytosis 1+ Poikilocytosis 1+ Manual Monocytes Abs 1.3 10 3/cmm Impression: 1. Patient with chronic lymphocytic leukemia, initially diagnosed in February 2010. He was initially managed with observation, as he had multiple other medical illnesses and he desired conservative management. 2. During his follow-up he continued to have wide fluctuations in his lymphocyte count, for which no rational explanation was found. He also had remained mildly anemic. His platelet counts had varied between low normal to mildly decreased. On several occasions his LDH level had been significantly elevated, but it was never consistently elevated. 3. Following his visit in July 2015 Dr Mann did opt to proceed with a trial of therapy with bendamustine/Rituxan. He had a mild infusion reaction with the initial attempt at the Rituxan infusion, and it was abandoned. He then returned on 08/24/2015 and with steroid premedication he was able to complete cycle 1 of bendamustine/Rituxan with no acute toxicity. 4. He subsequently presented with generalized erythroderma, consistent with hypersensitivity reaction to his treatment. He also has developed swelling in the upper extremities. A venous Doppler was suggestive of superficial venous thrombosis in the left arm, though no evidence of that was found clinically. The swelling subsequently improved, and the skin eruption subsequently resolved. It is uncertain whether the reaction was to Rituxan, to bendamustine, or to allopurinol. 5. Clinically he has had a very good response to the treatment. His other medical illnesses include: 6. Hypertension. 7. Hyperlipidemia. 8. Type II diabetes. 9. Chronic kidney disease. 10. Coronary artery disease. 11. History of complete heart block, requiring placement of permanent pacemaker. He had significant clinical improvement following a single cycle of treatment with bendamustine/Rituxan in July 2015. The treatment did result in significant toxicity. He had a good recovery and he was then followed on observation/expectant management. As of his follow-up visit on 11/03/2017 he has been showing a gradual increase in his lymphocyte count, and it appeared that his disease was getting symptomatic again. At that point Dr Mann had recommended that he begin second line treatment with ibrutinib. In preparation for the ibrutinib, he started prophylaxis with allopurinol 300 mg daily, but he developed a generalized skin eruption after the initial dosage. He was then given a prescription for Uloric, but that he also stopped after the initial dosage because of a possible reaction. Ultimately, Dr Mann did opt to treat him prophylactically with rasburicase, as I felt that he would be at high risk for tumor lysis. He received a single infusion of rasburicase on 02/11/2018, and he then started treatment with ibrutinib 420 mg daily on 02/12/2018. During subsequent follow-up his white blood cell count had initially remained stable, both some improvement in his hemoglobin/hematocrit levels. As of 06/19/2018 his hemoglobin was 11.5 g with white blood cell count 82,000 and platelet count 133,000. He continued ibrutinib at 420 mg daily. As of his follow-up visit on 09/14/2018 his ibrutinib was put on hold due to multiple complaints including fatigue, excessive somnolence, and confusion. During subsequent follow-up his blood counts had remained adequately controlled, though he continued to have significant fatigue. During subsequent follow-up he had multiple episodes of fever and nausea/vomiting, requiring IV hydration. He also had a significant increase in his lymphocyte count, and it did appear likely that his CLL was again symptomatic. On 12/03/2018 he restart her treatment with ibrutinib at a reduced dosage of 280 mg daily. At day 15 he was given an infusion of rasburicase due to an increase in his uric acid level. During further follow-up there was an increase in his lymphocyte count, as expected, but he had no further sick spells or other obvious CLL related symptoms. At his follow-up visit on 01/27/2019 he complained of severe muscle cramping, and his ibrutinib was put on hold. On 02/14/2019 he was admitted to the hospital with chest pain. He was also hypertensive, and his creatinine had increased to 3.2 mg/dL. He was seen by Dr. Orellana, and medical management was recommended. Metoprolol was added to his medication regimen. At discharge his creatinine had come down to 2.8 mg/dL. He presented on 02/24/2019 with an acute episode of nausea/vomiting, diarrhea, and weakness. He had chills and presumed fever. The symptoms were similar to his previous episodes. His lymphocyte count appeared to have come down significantly after the ibrutinib, but in retrospect that was most likely an erroneous laboratory result. His symptoms did improve with IV hydration and symptomatic measures. As of his follow-up visit on 03/03/2019 he restarted ibrutinib with a further dose reduction to 140 mg daily. During follow-up there was an increase in his lymphocyte count, as expected, but that has now stabilized. He has remained mildly anemic and he continues have mild thrombocytopenia. He has had some joint pain and muscle cramps with the ibrutinib, but thus far those side effects have been tolerable. Overall, his clinical status has improved. Mr. Renae presents today with foot pain. It is bilateral. He is concerned that it is gout. Plan: 1. continue ibrutinib at 140 mg daily. 2. Labs drawn today prior to his visit revealed a white count of 52.3 which is improved it was 67.4 in August. Hemoglobin is improved at 12.0 platelets 10 14,000 ANC is 3900. His creatinine is improved at 2.6 it was 2.9 in August 2019. Potassium 4.8 random glucose was 100 LFTs are normal uric acid is normal at 6.8. 3. I have asked for bilateral foot x-rays due to bilateral foot pain with walking. His uric acid is normal so I am checking the x-rays to make sure there are no gout crystals noted around any of his joints. I suspect this may be more of a plantar fasciitis type syndrome than gout at this time. 4. We discussed possible treatment. He reassures me that sugars have been running high at home he is unsure why would be so high this morning however was a nonfasting test. I told him of his x-rays did not reveal any crystallization's that we will try him on prednisone 20 mg daily for 2 days, then 15 mg daily for 2 days then 10 mg daily for 2 days then 5 mg daily. He has been advised to watch his blood sugars 3 times a day and call us if they are anything over 250. He would need sliding scale insulin???aggressive sliding scale insulin at that time. 5. He states he has had an appointment from his last visit. That is coming up in the next few weeks. We will keep that appointment for now with the same scheduled labs until we get his x-ray report back. 6. Mr. Renae is aware that I will call him with x-ray results when I get them. He is also instructed to call us in the interim should questions or problems arise. Signed By: Naga Santamaria-GONZALEZ, Valentin?ONP? Gagandeep Mann MD <<Signature on File>>
--- NOTE | 2020-01-23 16:01 | ONC FU_ITS ---
[facility] Patient Note Patient: Valente Renae Unit #: [id number]: 1945 Dictated By: Naga SantamariaDate of Visit: Jan 19, 2020 Onc MED Follow-Up/Prog Note I spoke with Mr. Lu regards to his x-ray of the feet. The left foot reveals moderate peripheral arterial disease no fractures or destructive bone lesions there is moderate peripheral arterial calcification in the arteries of the foot. No soft tissue abnormality or bone destruction. The right foot reports mild to moderate peripheral arterial disease mild osteoarthritis at the first metatarsophalangeal joint. No acute fracture or dislocation. I spoke with Mr. Renae regarding these results. I have advised him that you had a try the prednisone taper and will see how he does. He is well aware and we discussed in length about him taking his blood sugars and letting us know if is running high. If it does he will need a sliding scale insulin which she states he has done in the past. He states after having read some information that I given him on his office visit regarding plantar fasciitis he thinks that the symptoms are more likely to be that than something with the myeloma. He states he will keep us updated how he is doing let us know in interim if questions or problems arise. Prednisone taper 20 mg for 3 days 15 mg for 3 days 10 mg for 2 days and then 5 mg until he is seen back for his blood sugars not allow.
== END 2020-01-19 09:16 | disposition home or self-care (01) ==
LOC: ONCMED 09:22
PROVIDERS: PCP Family Medicine; Visit Provider Nurse Practitioner
DX: C91.10 Chronic lymphocytic leukemia of B-cell type not having achieved remission (principal); D69.6 Thrombocytopenia, unspecified; M25.50 Pain in unspecified joint; M25.40 Effusion, unspecified joint; M79.672 Pain in left foot; M79.671 Pain in right foot; R25.2 Cramp and spasm; E11.51 Type 2 diabetes mellitus with diabetic peripheral angiopathy without gangrene; M79.89 Other specified soft tissue disorders; E11.22 Type 2 diabetes mellitus with diabetic chronic kidney disease; I12.9 Hypertensive chronic kidney disease with stage 1 through stage 4 chronic kidney disease, or unspecified chronic kidney disease; N18.4 Chronic kidney disease, stage 4 (severe); M19.071 Primary osteoarthritis, right ankle and foot; I25.10 Atherosclerotic heart disease of native coronary artery without angina pectoris; E78.5 Hyperlipidemia, unspecified; Z79.4 Long term (current) use of insulin; Z87.891 Personal history of nicotine dependence; Z95.0 Presence of cardiac pacemaker; Z79.899 Other long term (current) drug therapy; Z79.52 Long term (current) use of systemic steroids
CPT/HCPCS: 80053; 84550; 85025; 99214

== ENCOUNTER 2020-01-19 12:41 | Outpatient (CLI) | payer MEDICARE, OTHER, SELFPAY ==
--- NOTE | 2020-01-19 12:51 | XR_ITS ---
WS: [id number] LEFT FOOT: 3 VIEW(S) TECHNIQUE: AP, oblique and lateral. HISTORY: BILATERAL FOOT PAIN WITH WALKING COMPARISON: None available. No acute fracture or dislocation. Mild hallux valgus. No destructive bone lesions. Normal tarsal/metatarsal alignment. No soft tissue abnormality or bone destruction. Moderate peripheral arterial calcifications in the arteries of the foot. XR/XR foot LT min 3V* [id number] IMPRESSION: 1. Moderate peripheral arterial disease. 2. No fractures or destructive bone lesion.
--- NOTE | 2020-01-19 12:52 | XR_ITS ---
WS: [id number] RIGHT FOOT: 3 VIEW(S) TECHNIQUE: AP, oblique and lateral. HISTORY: BILATERAL FOOT PAIN WITH WALKING COMPARISON: 10/17/2012 No acute fracture or dislocation. Mild hallux valgus. Mild degenerative changes at the first metatars ophalangeal joint. No fracture or bone destruction. Normal tarsal/metatarsal alignment. No soft tissue abnormality or bone destruction. Mild to moderate peripheral arterial disease. XR/XR foot RT min 3V* [id number] IMPRESSION: 1. Mild to moderate peripheral arterial disease. 2. Mild osteoarthritis at the first metatarsophalangeal joint.
== END 2020-01-19 12:42 | disposition home or self-care (01) ==
LOC: RADWPI 12:47
PROVIDERS: Family Provider Family Medicine; PCP Family Medicine; Visit Provider Nurse Practitioner
DX: M79.672 Pain in left foot (principal); I73.9 Peripheral vascular disease, unspecified; M19.071 Primary osteoarthritis, right ankle and foot
CPT/HCPCS: 73630

== ENCOUNTER 2020-05-01 11:38 | Emergency (ER) | payer OTHER, MEDICARE, SELFPAY ==
[2020-05-01] VITALS (8 sets, daily range): BP systolic 144–203; BP diastolic 76–106; PULSE 63–100; RESP 18; TEMP 36.3–36.8; O2SAT 92–95; BMI 33.0
--- NOTE | 2020-05-01 11:52 | CT_ITS ---
WS: [id number] CT ABDOMEN PELVIS TECHNIQUE: Noncontrast CT of the abdomen and pelvis with coronal and sagittal reformatted images. CLINICAL INFORMATION: left flank/ LUQ pain COMPARISON: Ultrasound and CT December 14, 2013 DLP: 2187.[address] scans at [facility] use at least one of these dose optimization techniques: automat ed exposure control; mA and/or kV adjustment per patient size (includes targeted exams where dose is matched to clinical indication); or iterative reconstruction. FINDINGS: Cholelithiasis. Splenic granulomas. Splenomegaly measuring 14.1 cm [id number]. Subsegmental atelect asis in the lung bases. Slight hazy groundglass infiltrate in the right lower lobe along the fissure. Subsegmental atelectasis in the lingula. Normal GE junction. Adrenal glands are normal. No hydronephrosis. Thick walled right renal cystic lesion measuring 6.9 x 6.1 CM. Capsular thickening with internal debris. This is similar to the recent ultrasound . Noncontrast pancreas appears unremarkable. Aortic calcification. Normal caliber abdominal aorta. No free fluid in the pelvis. Normal sigmoid colon. No evidence of small or large bowel obstruction. F at-containing umbilical hernia. CT/CT kidney stone 72917 IMPRESSION: 1. Cholelithiasis. No gallbladder wall thickening or pericholecystic fluid. 2. Largest complex cyst right kidney with peripheral capsular thickening simil ar to the prior ultrasound . Recommend follow up with renal ultrasound. 3. Splenomegaly with splenic granulomas. 4. No hydronephrosis in either kidney. No obstructing renal or ureteral calcul i. 5. No free fluid in the abdomen or pelvis. 6. Subsegmental bibasilar atelectasis with slight hazy infiltrates in the righ t lower lobe.
--- NOTE | 2020-05-01 11:56 | ED_ITS ---
HPI - Male Genitourinary General: Chief complaint: Urogenital-Male Stated complaint: Severe Stomach Pains Time Seen by Provider: 05/01/20 11:43 Source: patient and family () Mode of arrival: ambulatory History of Present Illness: HPI Narrative: The patient is a 75-year-old male with a history of CLL who presents to the emergency department with left flank/left upper quadrant pain. He said symptoms started about 3 AM this morning and has progressively worsened. Pain is severe and a 10/10. Pain radiates to the left inguinal region. He has some nausea but no vomiting, although he did force himself to vomit once. He denies any fever, any hematuria, or any dysuria. He however says his urine has been getting darker in color. He has a history of kidney stones and chronic kidney disease. Associated symptoms: Reports nausea; Deny dysuria or vomiting Review of Systems General: Reports: 10 or more systems reviewed and unremarkable except in HPI and below Const: Denies: fever(s), chills or body aches Eyes: Denies: change in vision or blurry vision ENMT: Denies: throat pain, enlarged tonsils, odynophagia, hoarseness, mouth pain or swelling of lips/tongue Card: Denies: palpitations, irregular heart rhythm, edema or swelling of feet/ankles Resp: Denies: dyspnea, productive cough or non-productive cough GI: Reports: abdominal pain and nausea; Denies: vomiting or diarrhea : Denies: flank pain, dysuria, urinary frequency, urinary urgency or urinary hesitancy Musc: Denies: neck pain, back pain or extremity swelling Skin/Breast: Denies: rash, pruritus or erythema Neuro: Denies: headache(s), numbness in extremities or weakness in extremities Endo: Denies: polyuria, polydipsia or tired all the time PFSH ED PFSH: Medical History (Reviewed 05/01/20 @ 11:59 by Iban Iraheta MD, [facility] [place]) ASHD (arteriosclerotic heart disease) Carotid stenosis, bilateral CKD (chronic kidney disease) CLL (chronic lymphocytic leukemia) Diabetes Dyslipidemia HTN (hypertension) Surgical History (Reviewed 05/01/20 @ 11:59 by Iban Iraheta MD, [facility] [place]) H/O removal of testicle S/P appendectomy S/P CABG (coronary artery bypass graft) S/P PTCA (percutaneous transluminal coronary angioplasty) Status cardiac pacemaker Family History (Reviewed 05/01/20 @ 11:59 by Iban Iraheta MD, [facility] [place]) Mother Diabetes CAD (coronary artery disease) Father CAD (coronary artery disease) Hypertension Other Stroke Social History (Reviewed 05/01/20 @ 11:59 by Iban Iraheta MD, [facility] [place]) Smoking and tobacco status: former smoker Alcohol intake: current Alcohol intake frequency: holidays/special occasions only Household members: spouse Marital status: Physical Exam Const: COMMON NORMALS: average body habitus, patient oriented x3, no limitations, healthy appearing, alert and well nourished GENERAL APPEARANCE: in distress (painful distress) HENMT: COMMON NORMALS: normocephalic, atraumatic and moist oral mucous membranes HEAD & SCALP: normocephalic and atraumatic Eye: COMMON NORMALS: Equal, round and reactive pupils present, EOMs intact bilaterally, conjunctivae normal and no scleral icterus CONJUNCTIVA: Yes conjunctivae normal PUPIL: Yes Equal, round and reactive pupils present Neck/C-Spine: COMMON NORMALS: no meningeal signs and no JVD Resp: COMMON NORMALS: normal respiratory effort, No retractions, No use of accessory muscles, clear to auscultation bilaterally and percussion normal AUSCULTATION: clear to auscultation bilaterally PERCUSSION: percussion normal Cardio: COMMON NORMALS: no JVD, regular rate, regular rhythm, S1 normal heart sound present, S2 normal heart sound present, No gallops present (Cardio), No clicks present (Cardio), No murmurs present (Cardio), No rub (Cardio) and Peripheral pulses 2+ throughout RATE: regular rate RHYTHM: regular rhythm HEART SOUNDS: S1 normal heart sound present and S2 normal heart sound present PERIPHERAL PULSES: Peripheral pulses 2+ throughout GI: COMMON NORMALS: Normal to inspection, nondistended, normoactive bowel sounds present, Soft to palpation, No hepatosplenomegaly present, no masses and no bruits PALPATION: Yes Soft to palpation, Yes Tenderness to palpation present (GI) Details: LUQ and Yes No hepatosplenomegaly present Back/Pelvis: GENERAL BACK: Yes CVA tenderness CVA tenderness: left Extremity: COMMON NORMALS: normal to inspection, full ROM, capillary refill normal, no calf tenderness and no pedal edema Neuro: COMMON NORMALS: patient oriented x3 SENSORIUM/ORIENTATION: Yes alert MENINGEAL SIGNS: Yes no meningeal signs Skin: COMMON NORMALS: no rashes or lesions noted, no wounds, turgor normal, no jaundice, no petechiae and no mottling GENERAL SKIN EXAM: no rashes or lesions noted and turgor normal Course Reevaluation(s): Reevaluation #1: Discussed his lab and imaging findings with him. Explained that he has mildly elevated lipase consistent with acute pancreatitis. Since his lipase is not greatly elevated he is appropriate for outpatient management. He is advised to go home on a liquid diet for now and we will discharge him home with some pain medication. He is given strict instructions to return if his pain increases or if his nausea vomiting increases. He voiced understanding and he is in agreement with the plan Time: 16:30 Vital Signs: Vital signs: Vital Signs Temperature 98.2 F 05/01/20 17:19 Pulse Rate 100 05/01/20 17:19 Respiratory Rate 18 05/01/20 17:19 Blood Pressure 172/93 05/01/20 17:19 Pulse Oximetry 94 05/01/20 17:19 MDM - Male MDM Narrative: Medical decision making narrative: 75 year old male who presents to the emergency department with abdominal pain. Evaluation in the emergency department is consistent with early pancreatitis. He is discharged home with a prescription for oral pain medication and he is advised to be on a liquid diet until his pain is well controlled. He is strongly counseled to return if his pain gets worse or if he is unable to keep anything down. Medical Records: Attestation: I reviewed the patient's medical records. Lab Data: Attestation: I reviewed the patient's lab results. Labs: Lab Results 05/01/20 05/01/20 05/01/20 Range/Units 12:01 12:01 12:17 WBC 37.9 H* (4.0-10.0) 10^3/ uL RBC 4.34 (4.1-5.3) 10^6/u L Hgb 12.4 (11.7-16.6) g/dL Hct 39.3 L (42.0-52.0) % MCV 90.6 (80-94) fL MCH 28.6 (28.0-34.0) pg MCHC 31.6 (30.0-36.0) g/dL RDW 13.6 (12.1-15.1) % Plt Count 133 (130-400) 10^3/c mm MPV 9.9 (7.4-10.4) fL Neut % (Auto) 20.7 % Lymph % (Auto) 76.4 % [place] % (Auto) 1.5 % Eos % (Auto) 0.4 % Baso % (Auto) 0.3 % Neut # (Auto) 7.82 H (1.8-7.7) 10^3/u L Lymph # (Auto) 29.0 H (0.8-4.8) 10^3/u L [place] # (Auto) 0.6 (0.2-0.9) 10^3/u L Eos # (Auto) 0.2 (0.0-0.8) 10^3/u L Baso # (Auto) 0.1 (0.0-0.1) 10^3/u L Nucleated RBC % (a uto) 0 % Nucleated RBCs # 0.0 /100WBC Sodium 139 (136-145) mmol/L Potassium 4.4 (3.5-5.1) mmol/L Chloride 101 (98-107) mmol/L Carbon Dioxide 25 (22-29) mmol/L Anion Gap 17.4 (5-19) BUN 48 H (8-23) mg/dL Creatinine 3.2 H (0.7-1.2) mg/dL GFR Calculation Not Reportable Glucose 270 H (65-115) mg/dL Calculated Osmolal ity 310 H (285-295) mOsm/k g Calcium 9.9 (8.5-10.5) mg/dL Total Bilirubin 0.5 (0.15-1.2) mg/dL AST 11 (0-40) U/L ALT 11 (0-41) U/L Alkaline Phosphata se 103 (40-130) IU/L Creatine Kinase 83 (39-308) U/L C-Reactive Protein 0.3 (0.0-4.9) mg/L Total Protein 7.0 (6.6-8.7) g/dL Albumin 4.3 (3.5-5.2) g/dL Globulin 2.7 (1.3-4.6) g/dL Lipase 167 H (13-60) U/L Urine Color Yellow (Yellow) Urine Appearance Sl hazy (CLEAR) Urine pH 8 H (5-7) Ur Specific Gravit y 1.010 (1.005-1.030) Urine Protein 1+ H (Negative) Urine Glucose (UA) 4+ H (Normal) Urine Ketones Negative (Negative) Urine Blood 3+ H (Negative) Urine Nitrate Negative (Negative) Urine Bilirubin Neg (Negative) Prot Sulfosalicyli c Acd Positive (Negative) Urine Urobilinogen Norm (Negative) mg/dL Ur Leukocyte [place] ase Negative (Negative) Urine RBC 40-50 H (0-2) /hpf Urine WBC 0-4 H (0-5) /hpf Ur Squamous Epith Cells 0-4 H (0-5) /hpf Amorphous Sediment Not Reportable Urine Bacteria Trace (NONE) /hpf Imaging Data: CT Abd/Pel: Attestation: I personally reviewed and interpreted this imaging study as follows: Radiologist's impression: [place] [id number] CT Scan Report Signed Patient: Valente Renae #: [id number] : 4Acct#:[id number] Age/Sex: 75 / MADM Date: 05/01/20 Loc: [facility]/Bed: Attending Dr: Ordering Provider/Ordering MD: Iban Iraheta MD, [facility] [place] Date of Service: 05/01/20 Procedure(s): CT kidney stone [id number] Accession Number(s): [id number] Report Number: [id number] WS: [id number] CT ABDOMEN PELVIS TECHNIQUE: Noncontrast CT of the abdomen and pelvis with coronal and sagittal reformatted images. CLINICAL INFORMATION: left flank/ LUQ pain COMPARISON: Ultrasound and CT December 14, 2013 DLP: 2187.[address] scans at [facility] use at least one of these dose optimization techniques: automated exposure control; mA and/or kV adjustment per patient size (includes targeted exams where dose is matched to clinical indication); or iterative reconstruction. FINDINGS: Cholelithiasis. Splenic granulomas. Splenomegaly measuring 14.1 cm [id number]. Subsegmental atelectasis in the lung bases. Slight hazy groundglass infiltrate in the right lower lobe along the fissure. Subsegmental atelectasis in the lingula. Normal GE junction. Adrenal glands are normal. No hydronephrosis. Thick walled right renal cystic lesion measuring 6.9 x 6.1 CM. Capsular thickening with internal debris. This is similar to the recent ultrasound . Noncontrast pancreas appears unremarkable. Aortic calcification. Normal caliber abdominal aorta. No free fluid in the pelvis. Normal sigmoid colon. No evidence of small or large bowel obstruction. Fat-containing umbilical hernia. CT/CT kidney stone [id number] IMPRESSION: 1. Cholelithiasis. No gallbladder wall thickening or pericholecystic fluid. 2. Largest complex cyst right kidney with peripheral capsular thickening similar to the prior ultrasound . Recommend follow up with renal ultrasound. 3. Splenomegaly with splenic granulomas. 4. No hydronephrosis in either kidney. No obstructing renal or ureteral calculi. 5. No free fluid in the abdomen or pelvis. 6. Subsegmental bibasilar atelectasis with slight hazy infiltrates in the right lower lobe. Dictated By:Jamshid Bennett MD Signed By:Jamshid Bennett MDSigned Date/Time:05/01/20 1258 DD/ 1243 Discharge Plan Discharge Patient Disposition: Home Clinical Impression: Acute pancreatitis Qualifiers: Pancreatitis type: idiopathic Acute pancreatitis complication: no infection or necrosis Qualified Code(s): K85.00 - Idiopathic acute pancreatitis without necrosis or infection Condition: Stable Prescriptions: [place] 5-325 mg tablet 1 tab PO Q8H PRN (Reason: Pancreatitis) Qty: 30 RF: 0 Continued nitroglycerin [Nitrostat] 0.4 mg tablet, sublingual 0.4 mg SUBLINGUAL Q5M PRN (Reason: Chest Pain) RF: 0 atorvastatin 10 mg tablet 10 mg PO DAILY RF: 0 amlodipine 10 mg tablet 10 mg PO DAILY RF: 0 losartan 50 mg tablet 50 mg PO DAILY RF: 0 clopidogrel 75 mg tablet 75 mg PO DAILY RF: 0 metoprolol tartrate 25 mg tablet 25 mg PO BID RF: 0 dutasteride [Avodart] 0.5 mg capsule 0.5 mg PO DAILY RF: 0 ibrutinib 140 mg tablet 280 mg PO DAILY RF: 0 Januvia 100 mg tablet 100 mg PO DAILY RF: 0 cholecalciferol (vitamin D3) 25 mcg (1,000 unit) capsule 25 mcg PO DAILY RF: 0 magnesium oxide 400 mg magnesium tablet 400 mg PO BID RF: 0 loratadine 10 mg tablet 10 mg PO DAILY RF: 0 aspirin [Aspir-81] 81 mg tablet,delayed release (DR/EC) 81 mg PO DAILY RF: 0 (DME) Diabetic Shoes See Rx Instructions .ROUTE .MEDSUPPLY Qty: 1 RF: 0 docusate sodium [Colace] 100 mg Capsule 100 mg PO BID PRN (Reason: Constipation) RF: 0 fluticasone propionate [Flonase Allergy Relief] 50 mcg/actuation [place],Suspension 1 spray INTRANASAL BID RF: 0 insulin aspart U-100 [Novolog Flexpen U-100 Insulin] 100 unit/mL (3 mL) Insulin Pen See Rx Instructions .ROUTE .COMPLEX RF: 0 Lantus Solostar U-100 Insulin 100 unit/mL (3 mL) Insulin Pen 50 unit SUBCUT BEDTIME RF: 0 isosorbide mononitrate 30 mg tablet extended release 24 hr 60 mg PO QAM RF: 0 Discharge Orders: Discharge Order (Routine); Ordered 05/01/20 Ordered By: Iban Iraheta Referrals: Alejandro Macias MD [Primary Care Provider] - 1-3 days Discharge Diet: Clear Liquid Discharge Activity: Increase activity as tolerated Patient Instructions: Pancreatitis (ED) Activity Restrictions/Additional Instructions: Return for any new or worsening symptoms. Follow-up with your primary care pro vider within 3 days. 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
[2020-05-01 12:18] LABS: Basophils # 0.1 10^3/uL (0.0-0.1); Basophils % 0.3 %; Eosinophils # 0.2 10^3/uL (0.0-0.8); Eosinophils % 0.4 %; Hematocrit 39.3 % (42.0-52.0); Hemoglobin 12.4 g/dL (11.7-16.6); Lymphocytes % 76.4 %; Mean Corpuscular HGB Conc 31.6 g/dL (30.0-36.0); Mean Corpuscular Hemoglobin 28.6 pg (28.0-34.0); Mean Corpuscular Volume 90.6 fL (80-94); Mean Platelet Volume 9.9 fL (7.4-10.4); Monocytes # 0.6 10^3/uL (0.2-0.9); Monocytes % 1.5 %; Neutrophils # 7.82 10^3/uL (1.8-7.7); Neutrophils % 20.7 %; Nucleated Red Blood Cells % 0 %; Platelet Count 133 10^3/cmm (130-400); Red Blood Count 4.34 10^6/uL (4.1-5.3); Red Cell Distribution Width 13.6 % (12.1-15.1)
[2020-05-01] MEDS: ondansetron 2 mg/ML SDV 2 mL 4 MG IVP (12:21)
[2020-05-01] MEDS: morphine 4 mg/mL SDV 1 mL IVP ×2 (12:21→15:18)
[2020-05-01 12:45] LABS: Alanine Aminotransferase 11 U/L (0-41); Albumin Level 4.3 g/dL (3.5-5.2); Alkaline Phosphatase 103 IU/L (40-130); Anion Gap 17.4 (5-19); Aspartate Amino Transferase 11 U/L (0-40); Blood Urea Nitrogen 48 mg/dL (8-23); C Reactive Protein 0.3 mg/L (0.0-4.9); Calcium 9.9 mg/dL (8.5-10.5); Carbon Dioxide 25 mmol/L (22-29); Chloride 101 mmol/L (98-107); Creatine Phosphokinase 83 U/L (39-308); Globulin 2.7 g/dL (1.3-4.6); Glucose 270 mg/dL (65-115); Lipase 167 U/L (13-60); Osmolality Calculated 310 mOsm/kg (285-295); Potassium 4.4 mmol/L (3.5-5.1); Sodium 139 mmol/L (136-145); Total Bilirubin 0.5 mg/dL (0.15-1.2)
[2020-05-01 13:06] LABS: Slide Review Slide Review Perform
[2020-05-01 13:07] LABS: White Blood Count 37.9 10^3/uL (4.0-10.0)
[2020-05-01 13:59] LABS: Bilirubin Urine Neg (Negative); Blood Urine 3+ (Negative); Glucose Urine UA 4+ (Normal); Ketones Urine Negative (Negative); Nitrate Urine Negative (Negative); Protein Urine 1+ (Negative); Sulfosalicylic Acid Urine Positive (Negative); Urine Appearance SL Hazy (CLEAR); Urine Color Yellow (Yellow); pH Urine 8 (5-7)
[2020-05-01 14:00] LABS: Add Urine Microscopic? YES; Leukocyte Esterase Urine Negative (Negative); Urobilinogen Urine Norm (Negative)
[2020-05-01 14:01] LABS: Add Urine Culture? Yes; Bacteria Urine TRACE /hpf; RBC Urine 40-50 /hpf (0-2); Squamous Epithelial Cell Urine 0-4 /hpf (0-5); WBC Urine 0-4 /hpf (0-5)
== END 2020-05-01 17:21 | disposition home or self-care (01) ==
PROVIDERS: Emergency Provider Family Medicine; PCP Family Medicine
DX: K85.00 Idiopathic acute pancreatitis without necrosis or infection (principal); Z79.82 Long term (current) use of aspirin; Z79.02 Long term (current) use of antithrombotics/antiplatelets; Z79.4 Long term (current) use of insulin; E11.9 Type 2 diabetes mellitus without complications; E78.5 Hyperlipidemia, unspecified; I10 Essential (primary) hypertension; Z95.1 Presence of aortocoronary bypass graft; Z95.0 Presence of cardiac pacemaker; Z87.891 Personal history of nicotine dependence
CPT/HCPCS: 12345; 74176; 80053; 81001; 82550; 83690; 85025; 86140; 87086; 96374; 96375; 96376; 99282; 99283; J2270; J2405

== ENCOUNTER → 2020-06-13 15:56 | Outpatient (BNVA) | payer MEDICARE, OTHER, SELFPAY | PROVIDERS: PCP Family Medicine; Referring Provider Family Medicine; Visit Provider Urology | DX: Z12.5 Encounter for screening for malignant neoplasm of prostate (principal); N40.0 Benign prostatic hyperplasia without lower urinary tract symptoms; Z87.438 Personal history of other diseases of male genital organs; N20.1 Calculus of ureter; N40.1 Benign prostatic hyperplasia with lower urinary tract symptoms; R35.1 Nocturia | CPT/HCPCS: 81003; G0103 ==

== ENCOUNTER → 2020-07-25 09:20 | Outpatient (BNVA) | payer MEDICARE, OTHER, SELFPAY | PROVIDERS: PCP Family Medicine; Visit Provider Urology | DX: N40.1 Benign prostatic hyperplasia with lower urinary tract symptoms (principal) | CPT/HCPCS: 81003 ==

== ENCOUNTER → 2020-08-29 16:23 | Outpatient (BNVA) | payer MEDICARE, OTHER, SELFPAY | PROVIDERS: PCP Family Medicine; Visit Provider Urology | DX: N40.1 Benign prostatic hyperplasia with lower urinary tract symptoms (principal); R31.0 Gross hematuria | CPT/HCPCS: 81003; 87086 ==

== ENCOUNTER 2020-12-12 08:48 | Outpatient (CLI) | payer MEDICARE, OTHER, SELFPAY ==
[2020-12-12 11:08] LABS: Basophils # 0.1 10^3/uL (0.0-0.1); Basophils % 0.3 %; Eosinophils # 0.4 10^3/uL (0.0-0.8); Eosinophils % 1.3 %; Hematocrit 36.6 % (42.0-52.0); Hemoglobin 11.3 g/dL (11.7-16.6); Lymphocytes # 22.9 10^3/uL (0.8-4.8); Lymphocytes % 83.5 %; Mean Corpuscular HGB Conc 30.9 g/dL (30.0-36.0); Mean Corpuscular Hemoglobin 28.9 pg (28.0-34.0); Mean Corpuscular Volume 93.6 fL (80-94); Mean Platelet Volume 10.8 fL (7.4-10.4); Monocytes # 0.6 10^3/uL (0.2-0.9); Monocytes % 2.2 %; Neutrophils # 3.41 10^3/uL (1.8-7.7); Neutrophils % 12.4 %; Nucleated Red Blood Cells % 0 %; Platelet Count 112 10^3/cmm (130-400); Red Blood Count 3.91 10^6/uL (4.1-5.3); Red Cell Distribution Width 14.4 % (12.1-15.1); White Blood Count 27.4 10^3/uL (4.0-10.0)
[2020-12-12 11:54] LABS: Alanine Aminotransferase 9 U/L (0-41); Albumin Level 4.2 g/dL (3.5-5.2); Alkaline Phosphatase 77 IU/L (40-130); Anion Gap 14.5 (5-19); Aspartate Amino Transferase 11 U/L (0-40); Blood Urea Nitrogen 40 mg/dL (8-23); Calcium 8.7 mg/dL (8.5-10.5); Carbon Dioxide 24 mmol/L (22-29); Chloride 107 mmol/L (98-107); Globulin 2.6 g/dL (1.3-4.6); Glucose 157 mg/dL (65-115); Iron 55 ug/dL (59-158); Lactate Dehydrogenase 205 U/L (135-225); Osmolality Calculated 303 mOsm/kg (285-295); Percent Saturation 23.1 % (20-50); Potassium 5.5 mmol/L (3.5-5.1); Sodium 140 mmol/L (136-145); Total Bilirubin 0.4 mg/dL (0.15-1.2); Total Iron Binding Capacity 238 mcg/dl; Total Protein 6.8 g/dL (6.6-8.7); Unsaturated Iron Binding 183 ug/dL (112-347); Vitamin B12 526 pg/mL (232-1245)
[2020-12-12 13:13] LABS: Immunoglobulin IGA 358 mg/dL (70-400); Immunoglobulin IGG 1044 mg/dL (700-1600); Immunoglobulin IGM 33 mg/dL (40-230)
[2020-12-12 13:43] LABS: Folate Level 7.9 ng/mL (4.5-32.2)
[2020-12-13 06:47] LABS: PROTEIN, TOTAL 6.6 g/dL (6.1-8.1)
--- NOTE | 2020-12-13 07:59 | ONC FU_ITS ---
Dr. Mann Patient Follow-Up Note Patient: Valente Renae Unit #: [id number]: 1945 Dicatated By: Gagandeep Mann M.D.Date of Visit:Dec 12, 2020 Onc Med Follow-up/Prog Note Chief Complaint: Chronic lymphocytic leukemia. History of Present Illness: This is a 75 year-old man with chronic lymphocytic leukemia, Kwok stage III. I had seen him initially in January of 2010 with a mild anemia and thrombocytopenia. At that time, he had been having episodes of low-grade fever with chills and generalized aching. Bone marrow aspiration/biopsy in February of 2010 was mildly hypercellular. It also showed evidence of a monoclonal B-cell lymphoproliferative process consistent with chronic lymphocytic leukemia. It comprised approximately 50% of the marrow cellularity. At that time the leukemia did not appear to be symptomatic, and he was initially just managed with observation. On a followup visit in November 2013 he had reported having 2 more febrile episodes. At that time he was noted to be mildly anemic with hemoglobin 10.7 g and his platelet count was normal at 144,000. His white blood cell count was elevated at 37,000, but that actually was down compared to the study the previous March. His LDH level was significantly elevated at 404/241 units per liter. Bone marrow aspiration/biopsy on 12/22/2013 showed 90 to 100% cellularity with the differential showing 72% lymphocytes. The chromosome analysis showed trisomy [address] scans showed interval splenomegaly with hamzah hepatis lymphadenopathy, the largest measuring 1.8 and 1.9 cm. Also noted was a 9 mm noncalcified pulmonary nodule in the left upper lobe. I had talked to him about the possibility of starting treatment, which he indicated he wanted to put off as long as possible. Followup laboratory studies in December 2013 showed some increase in his lymphocyte count. His hemoglobin was stable and his platelet count was just borderline low. His LDH level had returned to normal, and I opted to continue observation. During subsequent follow-up he continued to have occasional episodes of fever/chills, sometimes associated with nausea/vomiting and diarrhea. He was hospitalized again in January 2015. A subsequent HIDA scan showed no evidence of biliary obstruction, but the gallbladder ejection fraction was low at 19%. More recently he had been having pain in the right flank and right side of the back. He was noted to have a large cyst in the right kidney, and he underwent percutaneous drainage of the cyst on 07/24/2015. That procedure precipitated another spell . I had seen him for a follow-up visit on 08/09/2015. As there was no other obvious explanation for his symptoms, we opted to initiate treatment for the chronic lymphocytic leukemia. He returned on 08/22/2015 to begin cycle one of bendamustine/Rituxan. He did not complete treatment that day because of a mild infusion reaction with the Rituxan. However, with premedication, he was then able to complete his first cycle of treatment on 08/23 and 08/25/2015 with no acute toxicity. However, he subsequently presented with a generalized erythematous, itchy skin eruption. It was undoubtedly a hypersensitivity reaction, most likely to either the Rituxan or to the bendamustine. Allopurinol also was a possibility, though. He was given a short course of systemic steroid followed by topical steroid therapy. He returned 2 days later with swelling in the left arm. Venous Doppler showed features of thrombosis of the left cephalic vein from the anterior cubital fossa to the biceps. Other veins were noted to be patent. As such, I felt there was no definite indication for anticoagulation. On a followup visit in October 2015, the swelling and the skin eruption had resolved. He was feeling much better, and his hemoglobin had increased significantly, to 12.7 g. I did not attempt any further treatment. He was then continued on observation/expectant management. As of his follow-up visit on 08/22/2016 his white blood cell count was just mildly elevated at 17,000 with hemoglobin stable at 13.0 g and platelet count 135,000. He was seen again for a follow-up visit on 12/17/2016. His white blood cell count had increased to 42,000, his hemoglobin was stable at 12.8 g and his platelet count was normal at 148,000. He reported that a week earlier he did experience another episode of nausea/vomiting and chills. Fever was suspected but not documented. At the time of that visit his symptoms had improved significantly, and I opted to just continue with observation. As of his followup visit on 04/23/2017 he had experienced 2 further episodes with fever and nausea/vomiting. Both lasted only a few days and resolved without specific treatment. He had otherwise been feeling good. His white count at that point it increased to 58,000. Hemoglobin/hematocrit levels were stable. The platelet count was mildly decreased at 115,000. He continued observation/expectant management. He was seen for a follow-up visit again on 11/03/2017. At that point his white blood cell count had increased to 76,800 with his hemoglobin mildly decreased to 10.8 g and platelet count mildly decreased at 101,000. He appeared to be getting more overtly symptomatic, and at that point I did recommend that he begin second line treatment with ibrutinib. In preparation for starting the ibrutinib, he began prophylaxis with allopurinol 300 mg daily. He broke out with an erythematous skin eruption after the first dosage, and it was put on hold. He was then given a prescription for Uloric, but that he also stopped after the first dosage because of concerns of side effects. Ultimately, I did opt to treat him prophylactically with rasburicase, as I felt that he would be at very high risk for tumor lysis. He was given a single dose of rasburicase on 02/11/2018. He then started ibrutinib 420 mg daily on 02/12/2018. During subsequent follow-up, his white blood cell count had initially remained stable or slightly increased, but there was some improvement in the hemoglobin/hematocrit levels. As of 06/19/2018 the hemoglobin was 11.5 g with white blood cell count 82,000 and platelet count 133,000. He continued ibrutinib at 420 mg daily. He was seen for a scheduled visit on 09/14/2018. At that time he had multiple complaints including fatigue, excessive somnolence, and some confusion. His blood counts looked okay, but with those changes I did opt to have him stop the ibrutinib. As of his follow-up visit on 10/07/2018 he was feeling somewhat better, and he continued on observation/expectant management. On 11/03/2018 he had reported recurrence of fever/chills and nausea. He was given IV hydration for 2 days, and his symptoms improved. The preceding week he had required IV hydration for similar symptoms. At that point it did appear likely that his CLL had become symptomatic again. On 12/03/2018 he restarted treatment with ibrutinib at a reduced dosage of 280 mg daily. At day 15 he was given an infusion of rasburicase due to an increase in his uric acid level. During further follow-up, there was an increase in his lymphocyte count, as expected, but he was otherwise tolerating the treatment well. I had seen him for a follow-up visit on 01/27/2019. At that point he had developed severe muscle cramping, and I did opt to put his ibrutinib on hold. On 02/14/2019 he was admitted to the hospital after presenting to the emergency room with chest pain. He was hypertensive, and his creatinine at increased to 3.2 mg/dL. He had a slightly elevated troponin, significance of which was uncertain. A nuclear stress test showed some olvin-infarct ischemia, but mild. He had cardiology consultation with Dr. Orellana, and medical management was recommended. At discharge his creatinine had come back down to 2.8 mg/dL. Metoprolol was added to his medication regimen. He was seen for a follow-up visit on 02/24/2019. At that point he was acutely ill with another sick spell , including nausea/vomiting and diarrhea. He was given IV hydration and symptomatic management. His ibrutinib remained on hold. As of his follow-up visit on 03/03/2019 he was feeling better, and at that point he restarted ibrutinib with a further dose reduction to 140 mg daily. As of his follow-up visit in December 2019 there has been some further decline in his lymphocyte count. His other blood counts remained adequate, and he continued the ibrutinib at 140 mg daily. His other medical illnesses include hypertension, hyperlipidemia, type 2 diabetes, and coronary artery disease. He also has chronic kidney disease which has progressed to stage IV. In October 2014 he was admitted to the hospital with complete heart block, and he underwent placement of a permanent pacemaker. INTERIM HISTORY: He is seen for a follow-up visit. He has not been seen here since last December. He has had some significant problems during that time, including an episode in July when he sustained injuries to his ribs and left leg as result of the lawn more falling on him. He apparently had a significant hemorrhage associated with that injury and he had also been seeing Dr. Benavidez because of hematuria. More recently he had developed scrotal swelling with associated discoloration, description of which also appears consistent with hemorrhage. He says he has hardly any energy now, and his activity is very limited. This is due in part to his leg injury and also to fatigue and shortness of breath. He has been seeing Dr. De Anda for cardiology follow-up, and is tentatively scheduled to have a repeat coronary angiogram on the of this month. He says his appetite is not very good, but he has gained weight. He does not have fever or night sweats. He is short of breath with activity. He does not have much cough. Is not recently had any chest pain. He currently has no GI complaints. His bowel function remains adequate with a high-fiber diet. He has urinary frequency and nocturia. He is having pain in both knees now. He does not complain of headache or dizziness. He does have numbness/tingling in his feet, but he says it is not bad. He does bruise easily, but that has been going on for a long time. Medications: Aspirin 1 (81 mg) Tablet Oral daily, Atorvastatin Calcium 1 Tablet (of 10 mg) Oral daily, Cholecalciferol 1 (1000 Units) Tablet Oral daily, Clopidogrel Bisulfate 1 Tablet (of 75 mg) Oral daily, Dutasteride 1 (0.5 mg) Capsule Oral daily, Flonase 1 (50 mcg/act) Suspension Nasal daily, Ibrutinib 1 Capsule Oral daily, Isosorbide Mononitrate ER 1 Tablet (of 60 mg) Tablet SR 24 HR Oral daily, Januvia 1 Tablet (of 100 mg) Oral daily, Lantus 90 Units (of 100 Units/mL) Subcutaneous daily, Loratadine 1 Tablet (of 10 mg) Oral daily, Losartan Potassium 1 Tablet (of 50 mg) Oral daily, Magnesium Oxide 1 Tablet (of 500 ) Oral daily, Metoprolol Tartrate 1 Tablet (of 25 mg) Oral b.i.d., Nitroglycerin Tablet, sublingual Sublingual PRN, Norvasc 1 (10 mg) Tablet Oral daily, NovoLOG (100 Units/mL) Subcutaneous Take as Directed, Tylenol 2 (325 mg) Tablet Oral q 4 hours PRN Allergies: Allopurinol and Iodine. Vital Signs: Performed on Dec 12, 2020 10:28 Height - 71.00 in Weight - 253.8 lbs (HIGH) BSA - 2.33 sq.m BMI - 35.40 (HIGH) Temperature - 97.7 F (LOW) Pulse - 76 /min Respiration - 8 /min (LOW) BP - 164/75 mm(hg) (HIGH) O2 Sat - 97 % Pain - 6 Fatigue - 6 Physical Examination: Constitutional - He appears somewhat weak generally, Eyes - Sclerae nonicteric. Conjunctivae clear, ENMT - No lesions noted in the oral cavity, Hematologic/Lymphatic - No cervical, clavicular, or axillary adenopathy, Respiratory - Lungs are clear with good air movement bilaterally, Cardiovascular - Heart rhythm is regular. There is a II/ systolic murmur. There is no gallop or rub noted, Abdomen - Mildy distended. Liver and spleen are not enlarged. There is no abdominal mass or ascites noted and there is no inguinal adenopathy, Genitalia/Groin/Buttock (M) - The scrotum appear discolored, but there is only mild swelling now, Extremities - There are mild venous stasis changes. There is mild edema, worse on the left. There are findings of early Dupuytren's contracture in the left hand, Neurologic - No focal neurologic deficits noted. Lab/Imaging: Test performed on Dec 12, 2020 09:56 Folate, Serum 7.9 ng/mL Iron 55 mcg/dL LDH (Total) 205 U/L Sodium 140 mmol/L Vitamin B12 526 pg/mL Iron Binding Capacity (TIBC) 238 mcg/dl Potassium 5.5 mmol/L % Iron Saturation 23.1 % Chloride 107 mmol/L CO2 24 mmol/L UIBC 183 mcg/dL Anion Gap 14.5 BUN 40 mg/dL Creatinine 2.6 mg/dL Cr Clearance (Est) 36.3800 mL/min Glucose 157 mg/dL Osmolality - Calculated 303 mOsm/kg Calcium 8.7 mg/dL Protein, Total 6.8 g/dL Albumin 4.2 g/dL Globulin 2.6 g/dL Bilirubin, Total 0.4 mg/dL ALT (SGPT) 9 U/L AST (SGOT) 11 U/L Alkaline Phosphatase 77 IU/L WBC 27.4 10 3/uL RBC 3.91 10 6/uL HGB 11.3 g/dL HCT 36.6 % MCV 93.6 fL MCH 28.9 pg MCHC 30.9 g/dL RDW 14.4 % Platelet Count 112 10 3/cmm MPV 10.8 fL Neutrophils 3.41 10 3/uL Lymphocytes 22.9 10 3/uL Monocytes 0.6 10 3/uL Eosinophils 0.4 10 3/uL Basophils 0.1 10 3/uL Neutrophil % 12.4 % Lymphocyte % 83.5 % Monocyte % 2.2 % Eosinophil % 1.3 % Basophils % 0.3 % NRBC % 0 % IgG 1044 mg/dL IgA 358 mg/dL IgM 33 mg/dL Problem List: 1. Chronic lymphocytic leukemia, initially diagnosed in February 2010. 2. Hypertension. 3. Hyperlipidemia. 4. Type II diabetes. 5. Chronic kidney disease. 6. Coronary artery disease. 7. History of complete heart block, requiring placement of permanent pacemaker. Problems Addressed with this Encounter and Plan: 1. Patient with chronic lymphocytic leukemia, initially diagnosed in February 2010. He was initially managed with observation, as he had multiple other medical illnesses and he desired conservative management. During his follow-up he continued to have wide fluctuations in his lymphocyte count, for which I had found no rational explanation. He also had remained mildly anemic. His platelet counts had varied between low normal to mildly decreased. On several occasions his LDH level had been significantly elevated, but it was never consistently elevated. Following his visit in July 2015 I did opt to proceed with a trial of therapy with bendamustine/Rituxan. He had a mild infusion reaction with the initial attempt at the Rituxan infusion, and it was abandoned. He then returned on 08/24/2015 and with steroid premedication he was able to complete cycle 1 of bendamustine/Rituxan with no acute toxicity. He had subsequently presented with generalized erythroderma, consistent with hypersensitivity reaction to his treatment. The skin eruption subsequently resolved. It was never determined with certainty whether the reaction was to Rituxan, to bendamustine, or to allopurinol. However, he did have a very good response to the treatment. As of his follow-up visit on 11/03/2017 he has been showing a gradual increase in his lymphocyte count, and it appeared that his disease was getting symptomatic again. He ulltimately started treatment with ibrutinib 420 mg daily on 02/12/2018. He had a good clinical response, and he initially tolerated it well. However, as of his follow-up visit on 09/14/2018 his ibrutinib was put on hold due to multiple complaints including fatigue, excessive somnolence, and confusion. During subsequent follow-up his blood counts had remained adequately controlled, though he continued to have significant fatigue. On 12/03/2018 he restarted treatment with ibrutinib at a reduced dosage of 280 mg daily. At day 15 he was given an infusion of rasburicase due to an increase in his uric acid level. During further follow-up there was an increase in his lymphocyte count, as expected, but he had no further sick spells or other obvious CLL related symptoms. At his follow-up visit on 01/27/2019 he complained of severe muscle cramping, and his ibrutinib was put on hold. On 02/14/2019 he was admitted to the hospital with chest pain. He was also hypertensive, and his creatinine had increased to 3.2 mg/dL. He was seen by Dr. Orellana, and medical management was recommended. Metoprolol was added to his medication regimen. At discharge his creatinine had come down to 2.8 mg/dL. As of his follow-up visit on 03/03/2019 he restarted ibrutinib with a further dose reduction to 140 mg daily. During follow-up there was an increase in his lymphocyte count, as expected, but that had subsequently stabilized, and during further follow-up the lymphocyte count began to gradually decline. He remained mildly anemic and he continued to have mild thrombocytopenia. As of his follow-up visit in December 2019 his overall clinical status appeared stable, and he continued the ibrutinib at 140 mg daily. At this point his blood counts are still reasonably well controlled. He has just mild anemia and mild thrombocytopenia. There has been some further decrease in his lymphocyte count since December 2019, and his absolute neutrophil count is adequate at 3400. He has had a significant decline in his performance status. It is uncertain to what extent that may be due to the chronic lymphocytic leukemia or triggers unrelated medical illnesses. His recent clinical course has also been complicated by a significant injury. It also appears that he does have somewhat of a bleeding tendency, which can be a side effect of the ibrutinib. As such, I will want to discuss this with Dr. De Anda prior to his planned cardiac catheterization. However, in that regard, it should be noted that stopping the ibrutinib without other treatment on board for the CLL can potentially have significant adverse effects. At least for now the ibrutinib will be continued at 140 mg daily. 2. He appears to have findings of early Dupuytren's contracture in the left hand, and I will look into the possibility of having that evaluated at orthopedic clinic. Signed By: Gagandeep Mann M.D. <<Signature on File>>
[2020-12-13 12:57] LABS: ALBUMIN 3.9 g/dL (3.8-4.8); ALPHA 1 GLOBULIN 0.3 g/dL (0.2-0.3); ALPHA 2 GLOBULIN 0.6 g/dL (0.5-0.9); BETA 1 GLOBULIN 0.4 g/dL (0.4-0.6); BETA 2 GLOBULIN 0.4 g/dL (0.2-0.5)
== END 2020-12-12 08:49 | disposition home or self-care (01) ==
PROVIDERS: PCP Family Medicine; Visit Provider Internal Medicine Medical Oncology
DX: C91.10 Chronic lymphocytic leukemia of B-cell type not having achieved remission (principal); E78.5 Hyperlipidemia, unspecified; I12.9 Hypertensive chronic kidney disease with stage 1 through stage 4 chronic kidney disease, or unspecified chronic kidney disease; E11.22 Type 2 diabetes mellitus with diabetic chronic kidney disease; N18.9 Chronic kidney disease, unspecified; I25.10 Atherosclerotic heart disease of native coronary artery without angina pectoris; Z95.0 Presence of cardiac pacemaker; Z79.899 Other long term (current) drug therapy
CPT/HCPCS: 36415; 80053; 82607; 82746; 82784; 83540; 83550; 83615; 84155; 84165; 85025; 99214

== ENCOUNTER → 2020-12-14 11:51 | Outpatient (BNVA) | payer MEDICARE, OTHER, SELFPAY | PROVIDERS: PCP Family Medicine; Visit Provider Urology | DX: N40.1 Benign prostatic hyperplasia with lower urinary tract symptoms (principal); R35.1 Nocturia; R31.0 Gross hematuria; N50.89 Other specified disorders of the male genital organs | CPT/HCPCS: 81003; 87086; 88112 ==

== ENCOUNTER 2020-12-29 08:13 | Outpatient (CLI) | payer MEDICARE, OTHER, SELFPAY ==
--- NOTE | 2020-12-29 08:45 | US_ITS ---
WS: [id number] RENAL ULTRASOUND HISTORY: GROSS HEMATURIA COMPARISON: 02/15/2019 and 05/01/2020 CT. TECHNIQUE: 2-D and color Doppler imaging of the kidney submitted. Right kidney: 10.1 cm x 5.2 cm x 5.8 cm. Normal size kidney. There is a large solid mass arising laterally from the RIGHT kidney which is been previously described. This is a complex cystic mass with thick soft tissue borders measuring 6.3 x 6 .1 x 6.7 cm. No increased vascularity is identified within the solid component. No obstruction. Left kidney: 11.1 cm x 5.2 cm x 4.7 cm. Normal size kidney. Parapelvic cyst in the mid kidney measures 2.1 x 2.1 x 1.8 cm. Aorta: Poorly utilized. Urinary Bladder: Normal distention. US/US renal BI* [id number] IMPRESSION: 1. Solid mass from the RIGHT kidney measures 6.3 x 6.1 x 6.7 cm and has been p reviously described and thought to be benign. This may be a hemorrhagic cyst. 2. Stable cyst LEFT kidney.
--- NOTE | 2020-12-29 09:30 | XR_ITS ---
WS: [id number] KUB, AP view, 12/29/2020 Clinical Data: GROSS HEMATURI Comparison: None. Findings: No abnormal intraabdominal masses or calcifications are seen. There is no dilatated small bowel or ev idence of obstruction. There is fecal material throughout the colon. 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 There a re phleboliths in the true pelvis. XR/XR KUB [id number] Impression: Negative KUB.
== END 2020-12-29 08:14 | disposition home or self-care (01) ==
LOC: US 08:17
PROVIDERS: PCP Family Medicine; Visit Provider Urology
DX: R31.0 Gross hematuria (principal); N28.89 Other specified disorders of kidney and ureter; Q61.01 Congenital single renal cyst
CPT/HCPCS: 74018; 76770

== ENCOUNTER 2021-01-08 18:52 | Inpatient (IN) | payer MEDICARE, OTHER, SELFPAY ==
--- NOTE | 2021-01-08 19:08 | XRR_ITS ---
PROCEDURE INFORMATION: Exam: XR Chest Exam date and time: 01/08/2021 7:08 PM Age: 75 years old Clinical indication: Dyspnea; Additional info: Dyspnea/ covid SX TECHNIQUE: Imaging protocol: XR of the chest. Views: 1 view. COMPARISON: CR XR ribs RT mn 3V w CXR1V [id number] 08/15/2020 12:36 PM FINDINGS: Tubes, catheters and devices: Left -sided pacemaker. Lungs: Mild bilateral pulmonary opacities most consistent with pneumonia. Pleural spaces: Unremarkable. No pleural effusion. No pneumothorax. Heart/Mediastinum: Unremarkable. No cardiomegaly. Bones/joints: Previous sternotomy. XR/XR chest 1V portable [id number] IMPRESSION: Mild bilateral pulmonary opacities most consistent with pneumonia.
--- NOTE | 2021-01-08 19:14 | ECG_ITS ---
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 Measurements Intervals [place] Rate: 106 P: -69 [place]: 271 QRS: -80 QRSD: 185 T: 80 QT: 398 QTc: 529 Interpretive Statements ELECTRONIC VENTRICULAR PACEMAKER ABNORMAL RHYTHM ECG WARNING: DATA QUALITY MAY AFFECT INTERPRETATION Compared to ECG 12/02/2019 12:28:24 Atrial-paced complex(es) or rhythm no longer present Electronically Signed On 01-09-2021 16:44:46 CDT by Kya Chahal M.D. [id number]
[2021-01-08 19:22] VITALS: PULSE 97; RESP 18; TEMP 37.3; O2SAT 94; BMI 31.1
[2021-01-08 19:42] VITALS: O2SAT 96
[2021-01-08] MEDS: albuterol 8 gm MDI 2 PUFF INHALATION (19:46)
[2021-01-08 19:47] VITALS: PULSE 108; RESP 26; O2SAT 93
[2021-01-08] MEDS: sodium chloride 0.9% 1,000 ML 999 ML IV (19:50)
[2021-01-08 19:54] LABS: ABG PH Result 7.39 (7.35-7.45); Arterial Blood Gas Hematocrit 36.6 % (42-52); Blood Gas Allen Test Pos; Blood Gas Sample Site Radial, right; Blood Gas Sample Type Arterial; Carboxyhemoglobin 0.9 %THgb (0.4-20.1); HCO3 ABG 16.8 mmol/L (22-26); HGB O2 Sat 89.7 % (95-100); Methemoglobin 0.9 % (0.4-1.5); Oxygen Device NC; PO2 ABG 59.6 mmHg (80.0-100.0); Total Hemoglobin 11.9 g/dL (14-18)
[2021-01-08 19:59] LABS: Basophils % 0.1 %; Hematocrit 37.6 % (42.0-52.0); Hemoglobin 11.9 g/dL (11.7-16.6); Lymphocytes # 12.5 10^3/uL (0.8-4.8); Lymphocytes % 67.4 %; Mean Corpuscular HGB Conc 31.6 g/dL (30.0-36.0); Mean Corpuscular Hemoglobin 27.3 pg (28.0-34.0); Mean Corpuscular Volume 86.2 fL (80-94); Mean Platelet Volume 10.5 fL (7.4-10.4); Monocytes # 0.6 10^3/uL (0.2-0.9); Neutrophils # 5.43 10^3/uL (1.8-7.7); Neutrophils % 29.2 %; Nucleated Red Blood Cells % 0 %; Platelet Count 116 10^3/cmm (130-400); Red Blood Count 4.36 10^6/uL (4.1-5.3); White Blood Count 18.6 10^3/uL (4.0-10.0)
[2021-01-08 20:10] VITALS: BP 150/70; PULSE 102; RESP 20; O2SAT 96
[2021-01-08 20:18] LABS: Lactic Sepsis W/Reflex 1.6 mmol/L (0.5-2.2)
[2021-01-08 20:20] LABS: Slide Review Slide Review Perform
[2021-01-08 20:22] LABS: Troponin(5th) Baseline 80 ng/L (0-15)
[2021-01-08 20:26] LABS: Glucose Urine UA Norm (Normal); Ketones Urine Negative (Negative); Protein Urine 3+ (Negative); Specific Gravity, Urine 1.015 (1.005-1.030); Urine Appearance Clear (CLEAR); Urine Color Yellow (Yellow); pH Urine 5 (5-7)
[2021-01-08 20:27] LABS: Add Urine Culture? No; Add Urine Microscopic? YES; Amorphous Sediment Urine 3+ /hpf; Bacteria Urine 1+ /hpf; Bilirubin Urine Neg (Negative); Blood Urine 3+ (Negative); Leukocyte Esterase Urine Negative (Negative); Nitrate Urine Negative (Negative); RBC Urine 0-4 /hpf (0-2); Squamous Epithelial Cell Urine 0-4 /hpf (0-5); Urobilinogen Urine Norm (Negative)
[2021-01-08 20:29] LABS: Alanine Aminotransferase 14 U/L (0-41); Albumin Level 3.8 g/dL (3.5-5.2); Alkaline Phosphatase 50 IU/L (40-130); Anion Gap 21.4 (5-19); Aspartate Amino Transferase 26 U/L (0-40); Blood Urea Nitrogen 64 mg/dL (8-23); Carbon Dioxide 16 mmol/L (22-29); Chloride 100 mmol/L (98-107); Globulin 2.8 g/dL (1.3-4.6); Glucose 182 mg/dL (65-115); NT Pro B Type Natriuretic Pept 1790 pg/mL (0-450); Osmolality Calculated 297 mOsm/kg (285-295); Potassium 5.4 mmol/L (3.5-5.1); Sodium 132 mmol/L (136-145); Total Bilirubin 0.5 mg/dL (0.15-1.2); Total Protein 6.6 g/dL (6.6-8.7)
[2021-01-08 20:43] LABS: SARS Covid-2 Antigen Positive (Negative)
--- NOTE | 2021-01-08 21:14 | ECG_ITS ---
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 Measurements Intervals [place] Rate: 103 P: 9 [place]: 203 QRS: -65 QRSD: 126 T: 124 QT: 346 QTc: 453 Interpretive Statements ELECTRONIC VENTRICULAR PACEMAKER ABNORMAL RHYTHM ECG Compared to ECG 01/08/2021 19:54:20 No significant changes Electronically Signed On 01-09-2021 16:51:39 CDT by Kya Chahal M.D. [id number]
[2021-01-08 21:39] LABS: Troponin 5 2HR 76.44 ng/L (0-15)
[2021-01-08 21:42] LABS: Troponin 5 2HR Delta -3.56 ABS# (0-10)
[2021-01-08] MEDS: acetaminophen 325 mg Tablet 650 MG PO (21:49)
[2021-01-08] MEDS: dexamethasone 4 mg/mL INJ 6 MG IVP (21:50)
[2021-01-08 21:59] VITALS: BP 151/77; PULSE 105; RESP 20; O2SAT 92
[2021-01-08 22:00] VITALS: BP 127/84; PULSE 98; RESP 20; O2SAT 93
--- NOTE | 2021-01-08 22:24 | ED_ITS ---
HPI - COVID General: Chief Complaint: COVID symptoms Stated Complaint: SOB, TEMP Time Seen by Provider: 01/08/21 18:56 Triage information: Has fever, cough or shortness of breath . Exposure to COVID + person last 14 days History of Present Illness: HPI Narrative: The patient is a 75-year-old male with past medical history hypertension, coronary artery disease, old CABG and pacer, CKD, diabetes. He comes to the ER complaining of increasing shortness of breath over the past few days. Also has headache, generalized weakness, and fatigue. He admits sinus congestion as well. All likely Covid symptoms. He says he was exposed by someone at his buddhism. He was requiring 2 L oxygen to saturate in the low 90s and his wheezing bilaterally. MD complaint: reported COVID exposure and has COVID symptoms COVID 19 common symptoms: positive fever(s), chills, cough, non-productive cough, dyspnea, fatigue, body aches, headache(s) and nasal congestion; negative diarrhea COVID 19 other sytmptoms: positive pleuritic pain, requiring oxygen and confusion; negative chest pain Pertinent comorbid conditions: diabetes, hypertension, heart disease and chronic kidney disease COVID Results: SARS-CoV-2 Antigen (Rapid) Positive (Negative) H 01/08/21 19:45 01/08/21 Review of Systems General: Reports: 10 or more systems reviewed and unremarkable except in HPI and below Const: Reports: fever(s), chills, body aches and fatigue Eyes: Denies: change in vision, blurry vision or eye redness ENMT: Reports: nasal congestion Card: Denies: chest pain, palpitations, irregular heart rhythm, edema, dyspnea on exertion or orthopnea Resp: Reports: dyspnea and non-productive cough GI: Denies: abdominal pain, diarrhea or GI cramping : Denies: flank pain, urinary frequency or urinary urgency Musc: Denies: neck pain, back pain, extremity pain, joint pain, joint redness, limited range of motion or muscle weakness Skin/Breast: Denies: rash, pruritus, erythema, skin pain or skin tenderness Neuro: Reports: headache(s) and confusion Psych: Denies: anxiety or depression Endo: Denies: polyuria All/Imm: Denies: urticaria, throat swelling or tongue swelling PFS ED PFSH: Medical History (Updated 01/08/21 @ 22:37 by Jad Todd MD) ASHD (arteriosclerotic heart disease) BPH loc w urin obs/LUTS Carotid stenosis, bilateral CKD (chronic kidney disease) CLL (chronic lymphocytic leukemia) Complex renal cyst Diabetes Dyslipidemia Gross hematuria HTN (hypertension) Nocturia Scrotal edema Surgical History H/O removal of testicle S/P appendectomy S/P CABG (coronary artery bypass graft) S/P PTCA (percutaneous transluminal coronary angioplasty) Status cardiac pacemaker Family History Mother , in her 70's Diabetes CAD (coronary artery disease) Father , at age 69 CAD (coronary artery disease) Hypertension Other Stroke Social History Alcohol intake: current Alcohol intake frequency: holidays/special occasions only Household members: spouse Marital status: Current occupational status: retired History of recent travel: No Physical Exam Const: COMMON NORMALS: no acute distress, average body habitus, patient oriented x3, no limitations, alert and well nourished GENERAL APPEARANCE: cooperative, well developed and in distress ORIENTATION/CONSCIOUSNESS: Yes awake, Yes oriented to person, Yes oriented to place, Yes oriented to time and Yes confused HENMT: COMMON NORMALS: normocephalic, external ears normal and Normal external nose present HEAD & SCALP: normal to inspection and normocephalic NOSE: Normal external nose present EXTERNAL EAR: Yes external ears normal MOUTH: Normal oral and palatal mucosa present THROAT: posterior oropharynx normal Eye: COMMON NORMALS: Equal, round and reactive pupils present and EOMs intact bilaterally GENERAL EYE: appearance normal, both eyes and all related structures PUPIL: Yes Equal, round and reactive pupils present Neck/C-Spine: COMMON NORMALS: full ROM, no lymphadenopathy, no meningeal signs and no JVD GENERAL: Yes normal visual inspection Lymph: LYMPHATIC: no lymphadenopathy noted Chest: COMMONS NORMALS: normal inspection of the chest and normal palpation of entire chest wall Resp: EFFORT & INSPECTION: Yes able to speak in complete sentences, Yes tachypneic and Yes uses accessory muscles AUSCULTATION: wheezes and diminished lung sounds Cardio: COMMON NORMALS: no JVD, regular rate, regular rhythm, S1 normal heart sound present, S2 normal heart sound present and Peripheral pulses 2+ throughout RATE: regular rate RHYTHM: regular rhythm HEART SOUNDS: S1 normal heart sound present and S2 normal heart sound present PERIPHERAL PULSES: Peripheral pulses 2+ throughout GI: COMMON NORMALS: Normal to inspection, nondistended, normoactive bowel sounds present, Soft to palpation, non-tender and no masses INSPECTION: Yes normal to inspection PALPATION: Yes Soft to palpation : COMMON NORMALS: Yes no CVA tenderness BLADDER/KIDNEY EXAM: Yes no CVA tenderness Back/Pelvis: COMMON NORMALS: no CVA tenderness, thoracic and lumbar spine normal to inspection, no thoracic nor lumbar tenderness and thoraco-lumbar ROM normal Extremity: COMMON NORMALS: normal to inspection, full ROM, capillary refill normal, no joint enlargement and no pedal edema GENERAL: Yes normal exam except as noted Neuro: COMMON NORMALS: patient oriented x3, CN's II-XII intact bilaterally, moves all extremities, no focal motor deficits, no sensory deficits noted and gait normal SENSORIUM/ORIENTATION: Yes alert, Yes oriented to person, Yes oriented to place and Yes oriented to time MENINGEAL SIGNS: Yes no meningeal signs Psych: COMMON NORMALS: mental status grossly normal, Normal thought process present, cooperative, normal affect and speech normal ATTITUDE: Yes calm SPEECH: Yes normal speech THOUGHT PROCESS: Normal thought process present Skin: COMMON NORMALS: no rashes or lesions noted GENERAL SKIN EXAM: no rashes or lesions noted Course Vital Signs: Vital signs: Vital Signs Temperature 99.1 F 01/08/21 19:22 Pulse Rate 105 H 01/08/21 21:59 Respiratory Rate 20 H 01/08/21 21:59 Blood Pressure 151/77 01/08/21 21:59 Pulse Oximetry 92 01/08/21 21:59 MDM - COVID MDM Narrative: Medical decision making narrative: The patient has been exposed by someone he knows in complaining of Covid symptoms increasing shortness of breath, headache, amongst others. He was wheezing bilaterally and slightly confused. Slight increased work of breathing and requiring 2 to 3 L oxygen to sat in the low 90s. White count came back at 18.6. Chest x-ray shows bilateral opacities consistent with pneumonia. He swabbed positive for Covid here today. He will be admitted for Covid pneumonia. Also he has chronic kidney disease with increase in his creatinine of 3.1 and BUN 64. Also potassium 5.4. He was given a dose of Kayexalate. Discussed with Dr. Bunn who accepts for admission. Lab Data: Labs: Lab Results 01/08/21 01/08/21 01/08/21 Range/Units 19:40 19:40 19:40 WBC 18.6 H (4.0-10.0) 10^3/ uL RBC 4.36 (4.1-5.3) 10^6/u L Hgb 11.9 (11.7-16.6) g/dL Hct 37.6 L (42.0-52.0) % MCV 86.2 (80-94) fL MCH 27.3 L (28.0-34.0) pg MCHC 31.6 (30.0-36.0) g/dL RDW 15.0 (12.1-15.1) % Plt Count 116 L (130-400) 10^3/c mm MPV 10.5 H (7.4-10.4) fL Neut % (Auto) 29.2 % Lymph % (Auto) 67.4 % [place] % (Auto) 3.0 % Eos % (Auto) 0.0 % Baso % (Auto) 0.1 % Neut # (Auto) 5.43 (1.8-7.7) 10^3/u L Lymph # (Auto) 12.5 H (0.8-4.8) 10^3/u L [place] # (Auto) 0.6 (0.2-0.9) 10^3/u L Eos # (Auto) 0.0 (0.0-0.8) 10^3/u L Baso # (Auto) 0.0 (0.0-0.1) 10^3/u L Nucleated RBC % (a uto) 0 % Nucleated RBCs # 0.0 /100WBC Specimen Type Sample Site ABG pH (7.35-7.45) ABG pCO2 (35-45) mmHg ABG pO2 (80.0-100.0) mmH g ABG HCO3 (22-26) mmol/L ABG Base Excess (-2.0-2.0) mmol/ L Tj Test Hematocrit (42-52) % Hgb O2 Saturation (95-100) % Carboxyhemoglobin (0.4-20.1) %THgb Methemoglobin (0.4-1.5) % Total Hemoglobin (14-18) g/dL O2 Delivery Device O2 Liters/Min % Tool Crib Clerk ID Sodium 132 L (136-145) mmol/L Potassium 5.4 H (3.5-5.1) mmol/L Chloride 100 (98-107) mmol/L Carbon Dioxide 16 L (22-29) mmol/L Anion Gap 21.4 H (5-19) BUN 64 H (8-23) mg/dL Creatinine 3.1 H (0.7-1.2) mg/dL GFR Calculation Not Reportable Glucose 182 H (65-115) mg/dL Calculated Osmolal ity 297 H (285-295) mOsm/k g Lactic Acid (0.5-2.2) mmol/L Calcium 8.0 L (8.5-10.5) mg/dL Total Bilirubin 0.5 (0.15-1.2) mg/dL AST 26 (0-40) U/L ALT 14 (0-41) U/L Alkaline Phosphata se 50 (40-130) IU/L Troponin T Baselin e 80 H (0-15) ng/L Troponin T 120 Min [place] (0-15) ng/L Delta Troponin T (0-10) ABS# NT-Pro-B Natriuret Pep 1790 H (0-450) pg/mL Total Protein 6.6 (6.6-8.7) g/dL Albumin 3.8 (3.5-5.2) g/dL Globulin 2.8 (1.3-4.6) g/dL Urine Color (Yellow) Urine Appearance (CLEAR) Urine pH (5-7) Ur Specific Gravit y (1.005-1.030) Urine Protein (Negative) Urine Glucose (UA) (Normal) Urine Ketones (Negative) Urine Blood (Negative) Urine Nitrate (Negative) Urine Bilirubin (Negative) Urine Urobilinogen (Negative) mg/dL Ur Leukocyte Inmco ase (Negative) Urine RBC (0-2) /hpf Urine WBC (0-5) /hpf Ur Squamous Epith Cells (0-5) /hpf Amorphous Sediment /hpf Urine Bacteria (NONE) /hpf SARS-CoV-2 Ag (Rap id) (Negative) 01/08/21 01/08/21 01/08/21 Range/Units 19:40 19:45 19:45 WBC (4.0-10.0) 10^3/ uL RBC (4.1-5.3) 10^6/u L Hgb (11.7-16.6) g/dL Hct (42.0-52.0) % MCV (80-94) fL MCH (28.0-34.0) pg MCHC (30.0-36.0) g/dL RDW (12.1-15.1) % Plt Count (130-400) 10^3/c mm MPV (7.4-10.4) fL Neut % (Auto) % Lymph % (Auto) % [place] % (Auto) % Eos % (Auto) % Baso % (Auto) % Neut # (Auto) (1.8-7.7) 10^3/u L Lymph # (Auto) (0.8-4.8) 10^3/u L [place] # (Auto) (0.2-0.9) 10^3/u L Eos # (Auto) (0.0-0.8) 10^3/u L Baso # (Auto) (0.0-0.1) 10^3/u L Nucleated RBC % (a uto) % Nucleated RBCs # /100WBC Specimen Type Arterial Sample Site Radial, right ABG pH 7.39 (7.35-7.45) ABG pCO2 28.0 L (35-45) mmHg ABG pO2 59.6 L (80.0-100.0) mmH g ABG HCO3 16.8 L (22-26) mmol/L ABG Base Excess -7.0 L (-2.0-2.0) mmol/ L Tj Test Pos Hematocrit 36.6 L (42-52) % Hgb O2 Saturation 89.7 L (95-100) % Carboxyhemoglobin 0.9 (0.4-20.1) %THgb Methemoglobin 0.9 (0.4-1.5) % Total Hemoglobin 11.9 L (14-18) g/dL O2 Delivery Device Nc O2 Liters/Min 2.0 % Tool Crib Clerk ID ellpe Sodium (136-145) mmol/L Potassium (3.5-5.1) mmol/L Chloride (98-107) mmol/L Carbon Dioxide (22-29) mmol/L Anion Gap (5-19) BUN (8-23) mg/dL Creatinine (0.7-1.2) mg/dL GFR Calculation Glucose (65-115) mg/dL Calculated Osmolal ity (285-295) mOsm/k g Lactic Acid 1.6 (0.5-2.2) mmol/L Calcium (8.5-10.5) mg/dL Total Bilirubin (0.15-1.2) mg/dL AST (0-40) U/L ALT (0-41) U/L Alkaline Phosphata se (40-130) IU/L Troponin T Baselin e (0-15) ng/L Troponin T 120 Min [place] (0-15) ng/L Delta Troponin T (0-10) ABS# NT-Pro-B Natriuret Pep (0-450) pg/mL Total Protein (6.6-8.7) g/dL Albumin (3.5-5.2) g/dL Globulin (1.3-4.6) g/dL Urine Color (Yellow) Urine Appearance (CLEAR) Urine pH (5-7) Ur Specific Gravit y (1.005-1.030) Urine Protein (Negative) Urine Glucose (UA) (Normal) Urine Ketones (Negative) Urine Blood (Negative) Urine Nitrate (Negative) Urine Bilirubin (Negative) Urine Urobilinogen (Negative) mg/dL Ur Leukocyte Nim[place] ase (Negative) Urine RBC (0-2) /hpf Urine WBC (0-5) /hpf Ur Squamous Epith Cells (0-5) /hpf Amorphous Sediment /hpf Urine Bacteria (NONE) /hpf SARS-CoV-2 Ag (Rap id) Positive H (Negative) 01/08/21 01/08/21 Range/Units 20:00 21:16 WBC (4.0-10.0) 10^3/ uL RBC (4.1-5.3) 10^6/u L Hgb (11.7-16.6) g/dL Hct (42.0-52.0) % MCV (80-94) fL MCH (28.0-34.0) pg MCHC (30.0-36.0) g/dL RDW (12.1-15.1) % Plt Count (130-400) 10^3/c mm MPV (7.4-10.4) fL Neut % (Auto) % Lymph % (Auto) % [place] % (Auto) % Eos % (Auto) % Baso % (Auto) % Neut # (Auto) (1.8-7.7) 10^3/u L Lymph # (Auto) (0.8-4.8) 10^3/u L [place] # (Auto) (0.2-0.9) 10^3/u L Eos # (Auto) (0.0-0.8) 10^3/u L Baso # (Auto) (0.0-0.1) 10^3/u L Nucleated RBC % (a uto) % Nucleated RBCs # /100WBC Specimen Type Sample Site ABG pH (7.35-7.45) ABG pCO2 (35-45) mmHg ABG pO2 (80.0-100.0) mmH g ABG HCO3 (22-26) mmol/L ABG Base Excess (-2.0-2.0) mmol/ L Tj Test Hematocrit (42-52) % Hgb O2 Saturation (95-100) % Carboxyhemoglobin (0.4-20.1) %THgb Methemoglobin (0.4-1.5) % Total Hemoglobin (14-18) g/dL O2 Delivery Device O2 Liters/Min % Tool Crib Clerk ID Sodium (136-145) mmol/L Potassium (3.5-5.1) mmol/L Chloride (98-107) mmol/L Carbon Dioxide (22-29) mmol/L Anion Gap (5-19) BUN (8-23) mg/dL Creatinine (0.7-1.2) mg/dL GFR Calculation Glucose (65-115) mg/dL Calculated Osmolal ity (285-295) mOsm/k g Lactic Acid (0.5-2.2) mmol/L Calcium (8.5-10.5) mg/dL Total Bilirubin (0.15-1.2) mg/dL AST (0-40) U/L ALT (0-41) U/L Alkaline Phosphata se (40-130) IU/L Troponin T Baselin e (0-15) ng/L Troponin T 120 Min [place] 76.44 H (0-15) ng/L Delta Troponin T -3.56 L (0-10) ABS# NT-Pro-B Natriuret Pep (0-450) pg/mL Total Protein (6.6-8.7) g/dL Albumin (3.5-5.2) g/dL Globulin (1.3-4.6) g/dL Urine Color Yellow (Yellow) Urine Appearance Clear (CLEAR) Urine pH 5 (5-7) Ur Specific Gravit y 1.015 (1.005-1.030) Urine Protein 3+ H (Negative) Urine Glucose (UA) Norm (Normal) Urine Ketones Negative (Negative) Urine Blood 3+ H (Negative) Urine Nitrate Negative (Negative) Urine Bilirubin Neg (Negative) Urine Urobilinogen Norm (Negative) mg/dL Ur Leukocyte Nimco ase Negative (Negative) Urine RBC 0-4 H (0-2) /hpf Urine WBC 10-15 H (0-5) /hpf Ur Squamous Epith Cells 0-4 H (0-5) /hpf Amorphous Sediment 3+ /hpf Urine Bacteria 1+ H (NONE) /hpf SARS-CoV-2 Ag (Rap id) (Negative) COVID Results: SARS-CoV-2 Antigen (Rapid) Positive (Negative) H 01/08/21 19:45 01/08/21 Discharge Plan Discharge Patient Disposition: Admitted As Inpatient Clinical Impression: Pneumonia due to 2019 novel coronavirus, Acute hyperkalemia, Acute kidney injury superimposed on chronic kidney disease Condition: Stable Coding Level of Care Code ED Psychological Examiner for Jordin Fwd Exam Comprehensive
--- NOTE | 2021-01-08 22:51 | PM.HP ---
Providers/Chief Complaint Admitting Physician: Harper Bunn Primary Care Provider: Alejandro Macias MD Chief Complaint: SOB, TEMP History of Present Illness 75-year-old male with a past medical history significant for hypertension, dyslipidemia, diabetes mellitus, BPH with prior retention, coronary artery disease with history CABG, complete heart block prior pacemaker placement,Chronic stage 3 kidney disease with baseline creatinine around 2.6, and chronic lymphocytic leukemia presented to the hospital with respiratory distress. Patient is status post 2 doses of vaccine with last 1 being 1 week prior. Denied nausea or vomiting however did have generalized weakness, poor apetitie. Denied chest pain however noted non-productive cough. Vital signs on arrival showed a temperature of a 100.1, heart rate of 95, respiratory rate of 20 with oxygen saturation of 92% on 3 L. Laboratory workup arrival showed a WBC of 18.6, hemoglobin of 11.9, hematocrit of 37.6 and a platelet count of 116. Sodium 132, potassium 5.4, chloride 100, bicarb 16, BUN 64 and creatinine of 3.1. Glucose of 182. Lactic acid of 1.6. Troponin T baseline of 80 with repeat at 120 minutes of 76. ProBNP elevated 1790. Arterial blood gas showed a pH Of 7.39 , pCO2 of 28, PO2 of 59.6 and a bicarb of 16.8 . COVID-19 antigen positive. Chest x-ray showed mild bilateral pulmonary opacities most consistent with pneumonia. In emergency room patient was given 1 L bolus of normal saline, DuoNeb treatment, dexamethasone 6 mg IV x1, Levaquin 750 mg IV x1 and Kayexalate 15 g p.o. x1 Review of Systems General: Reports: 10 or more systems reviewed and unremarkable except in HPI and below Medications/Allergies Home Medications Medication Instructions Recorded Confirmed Last Taken Type amlodipine 10 mg tablet 10 mg PO DAILY 11/22/19 12/29/20 04/30/20 History aspirin 81 mg tablet,delayed 81 mg PO DAILY 11/22/19 12/29/20 04/30/20 History release ibrutinib 140 mg tablet 280 mg PO DAILY tab 11/22/19 12/29/20 04/30/20 History loratadine 10 mg tablet 10 mg PO DAILY 11/22/19 12/29/20 04/30/20 History magnesium oxide 400 mg PO BID 11/22/19 12/29/20 04/30/20 History nitroglycerin 0.4 mg sublingual 0.4 mg SUBLINGUAL Q5M PRN 11/22/19 12/29/20 Unknown History tablet docusate sodium [Colace] 100 mg PO BID PRN 12/02/19 12/29/20 04/30/20 History fluticasone propionate [Flonase 1 spray INTRANASAL BID 12/02/19 12/29/20 05/01/20 History Allergy Relief] insulin aspart U-100 [Novolog See Rx Instructions .ROUTE .COMPLEX 12/02/19 12/29/20 Unknown History Flexpen U-100 Insulin] acetaminophen 325 mg tablet 325 mg PO QID PRN 06/13/20 12/29/20 Unknown History tamsulosin 0.4 mg capsule 0.4 mg PO QDAY #90 cap 06/13/20 12/29/20 Unknown Rx finasteride 5 mg tablet 5 mg PO DAILY 07/25/20 12/29/20 Unknown History isosorbide mononitrate 30 mg 30 mg PO DAILY #30 tab 09/21/20 12/29/20 Unknown Rx tablet,extended release 24 hr isosorbide mononitrate 60 mg 60 mg PO DAILY #30 tab 09/21/20 12/29/20 Unknown Rx tablet,extended release 24 hr atorvastatin 10 mg tablet 10 mg PO DAILY 11/14/20 12/29/20 Unknown History losartan 50 mg tablet 100 mg PO DAILY tab 11/14/20 12/29/20 Unknown History alogliptin 12.5 mg tablet 12.5 mg PO DAILY 12/14/20 12/29/20 Unknown History cholecalciferol (vitamin D3) 25 50 mcg PO DAILY cap 12/14/20 12/29/20 Unknown History mcg (1,000 unit) capsule glucosamine-chondroitin 250 mg-200 1 tab PO DAILY tab 12/14/20 12/29/20 Unknown History mg tablet insulin glargine 100 unit/mL (3 50 unit SUBCUT BEDTIME ml 12/14/20 12/29/20 Unknown History mL) subcutaneous pen Allergies Allergy/AdvReac Type Severity Reaction Status Date / Time allopurinol Allergy ALGY-Rash Verified 01/08/21 19:28 Iodinated Contrast Media Allergy ALGY-Hives Verified 01/08/21 19:28 metformin Allergy ADR-Fatigue Verified 01/08/21 19:28 d PFSH Acute PFSH: Medical History (Updated 01/09/21 @ 03:40 by Harper Bunn MD) ASHD (arteriosclerotic heart disease) BPH loc w urin obs/LUTS Carotid stenosis, bilateral CKD (chronic kidney disease) CLL (chronic lymphocytic leukemia) Complex renal cyst Diabetes Dyslipidemia Gross hematuria HTN (hypertension) Nocturia Scrotal edema Surgical History H/O removal of testicle S/P appendectomy S/P CABG (coronary artery bypass graft) S/P PTCA (percutaneous transluminal coronary angioplasty) Status cardiac pacemaker Family History Mother , in her 70's Diabetes CAD (coronary artery disease) Father , at age 69 CAD (coronary artery disease) Hypertension Other Stroke Social History Alcohol intake: current Alcohol intake frequency: holidays/special occasions only Household members: spouse Marital status: Current occupational status: retired History of recent travel: No Vitals/I&O/Wt Last Vital Signs Temp 99.1 F 01/08/21 19:22 Pulse 91 01/09/21 00:36 Resp 18 01/09/21 00:36 BP 142/76 01/09/21 00:36 Pulse Ox 92 01/09/21 00:36 01/08/21 01/08/21 01/09/21 14:59 22:59 06:59 Intake Total 1150 / 1150 Balance 1150 / 1150 Weight last 48 hrs Weight 101.151 kg Physical Exam Narrative: EXAM NARRATIVE: General- alert awake and oriented x3 HEENT- grossly unremarkable Chest- mild labored respiration on 3l CVS - regular rate rhythm Abdomen-soft nontender nondistended Extremities-no edema Data : 01/08/21 19:40 01/08/21 19:40 Micro: Microbiology 01/08/21 19:40 Blood Culture - Preliminary Blood SPECIMEN COLLECTED A&P Assessment and plan (1) Acute respiratory disease due to 2019 novel coronavirus: Supplemental o2 as needed Decadron 6 mg IV daily Consider Remdesivir Ferritin,CRP, Pro ancelmo in am Home o2 eval at discharge. Status: Acute (2) Sepsis: Possible superimposed bacterial infection Will start on cefepime 1 g IV BID Immunocompremised Blood culture x 2 Urine culture Procal in am Status: Acute Qualifiers: Sepsis type: sepsis due to unspecified organism Sepsis acute organ dysfunction status: with acute organ dysfunction Severe sepsis acute organ dysfunction type: acute respiratory failure Acute respiratory failure type: with hypoxia Severe sepsis shock status: without septic shock Qualified Code(s): A41.9 - Sepsis, unspecified organism; R65.20 - Severe sepsis without septic shock; J96.01 - Acute respiratory failure with hypoxia (3) Acute kidney injury superimposed on chronic kidney disease: Cautious fluid hydration Started on IVF overnight Can hold in am Consider Nephrology consult BMP in am Renal dosing of meds. Status: Acute (4) Diabetes: Sliding scale insulin A1c in am Diabetic diet Status: Acute Attestations Medical Necessity Statement*: Will require > 2 midnight stay in hospital for eval and treatment of covid 19, sepsis, francisca on ckd Time Spent in Patient Care: Greater than 35 minutes (>than 50% of time spent in counselling and/or direct pt care on unit). Coding Level of Care Code Acute Physician Assistant Certified for [facility] Diagnoses Acute respiratory disease due to 2019 novel coronavirus U07.1; J06.9 Sepsis A41.9; R65.20; J96.01 Sepsis type: sepsis due to unspecified organism Sepsis acute organ dysfunction status: with acute organ dysfunction Severe sepsis acute organ dysfunction type: acute respiratory failure Acute respiratory failure type: with hypoxia Severe sepsis shock status: without septic shock Acute kidney injury superimposed on chronic kidney disease N17.9; N18.9 Diabetes E11.9
--- NOTE | 2021-01-08 23:05 | PC.NURSE ---
patient was up out of bed and had removed all monitors and IV. I assisted him with hygiene and back to bed, placed on monitors and then started a new IV at this time
[2021-01-08] MEDS: levofloxacin-dextrose 5 % 750 MG/150 ML PREMIX 100 MG IV (23:06)
[2021-01-09] VITALS (13 sets, daily range): BP systolic 110–182; BP diastolic 48–76; PULSE 80–98; RESP 18–24; TEMP 36.4–37; O2SAT 87–98
--- NOTE | 2021-01-09 00:37 | PC.NURSE ---
report given to Andrei HEATON
[2021-01-09] MEDS: sodium polystyrene sulfonate 15 gm/60 mL Btl PO (01:09)
[2021-01-09 02:29] LABS: Troponin 5 6HR 72.91 ng/L (0-15)
[2021-01-09 02:30] LABS: Troponin 5 6HR Delta -7.09 ng/L (0-12)
[2021-01-09] MEDS: sodium chloride 0.9% 1,000 ML 50 ML IV ×2 (02:39→23:24)
[2021-01-09 03:13] LABS: Ferritin 547 ng/mL (30-400)
[2021-01-09 06:20] LABS: Glucose Point of Care 337 mg/dL (70-110)
[2021-01-09 10:01] LABS: Anion Gap 20.4 (5-19); Blood Urea Nitrogen 68 mg/dL (8-23); C Reactive Protein 38.6 mg/L (0.0-4.9); Calcium 7.6 mg/dL (8.5-10.5); Carbon Dioxide 16 mmol/L (22-29); Chloride 99 mmol/L (98-107); Ferritin 560 ng/mL (30-400); Glucose 344 mg/dL (65-115); Osmolality Calculated 303 mOsm/kg (285-295); Potassium 5.4 mmol/L (3.5-5.1); Sodium 130 mmol/L (136-145)
[2021-01-09 10:07] LABS: Procalcitonin 0.19 ng/mL (0-0.5)
[2021-01-09 10:29] LABS: D Dimer 1.96 ug/mIFEU (0-0.59)
[2021-01-09] MEDS: remdesivir 200 MG in sodium chloride 0.9% (100 ml) 100 ML 100 MG IV (10:45)
[2021-01-09] MEDS: aspirin 81 mg EC Tablet PO (10:46)
[2021-01-09] MEDS: finasteride 5 mg Tablet PO (10:46)
[2021-01-09] MEDS: isosorbide mononitrate ER 30 mg Tablet PO (10:47)
[2021-01-09] MEDS: isosorbide mononitrate ER 60 mg Tablet PO (10:47)
[2021-01-09] MEDS: tamsulosin 0.4 mg Capsule PO (10:47)
[2021-01-09] MEDS: atorvastatin 40 mg Tablet 20 MG PO (10:47)
[2021-01-09] MEDS: amlodipine 10 mg Tablet PO (10:48)
[2021-01-09] MEDS: pantoprazole DR 40 mg Tablet PO (10:48)
[2021-01-09] MEDS: dexamethasone 4 mg/mL INJ 6 MG IVP (10:49)
[2021-01-09 11:48] LABS: Glucose Point of Care 405 mg/dL (70-110)
--- NOTE | 2021-01-09 13:15 | P.PN_ITS ---
Subjective Subjective: Interval history: History and physical was reviewed. Patient reports he still feels poorly, and is short of breath. No vomiting. Medications: Reviewed: Yes Vitals/I&O/Wt Last Vital Signs Temp 97.6 F 01/09/21 11:22 Pulse 88 01/09/21 11:22 Resp 22 H 01/09/21 11:22 BP 151/74 01/09/21 11:22 Pulse Ox 94 01/09/21 11:22 01/08/21 01/09/21 01/09/21 22:59 06:59 14:59 Intake Total 1323.333 / 1323.333 60 / 60 Output Total 300 / 300 650 / 650 Balance 1023.333 / 1023.333 -590 / -590 Weight last 48 hrs Weight 101.151 kg Physical Exam Narrative: EXAM NARRATIVE: General exam no apparent distress Coarse breath sounds noted bilaterally Abdomen is soft with positive bowel sounds Extremities no cyanosis clubbing or edema Data : 01/08/21 19:40 01/09/21 09:20 Micro: Microbiology 01/09/21 01:48 Blood Culture - Preliminary Blood SPECIMEN COLLECTED 01/08/21 19:40 Blood Culture - Preliminary Blood SPECIMEN COLLECTED A&P Assessment and plan (1) Pneumonia due to 2019 novel coronavirus: Initiate remdesivir Continue dexamethasone Combivent every 6 hours Incentive spirometry Cefepime was initiated prophylactically currently. Status: Acute (2) Acute kidney injury superimposed on chronic kidney disease: Continue low-dose fluids, monitor continue low-dose fluids Note that renal ultrasound recently done demonstrated no obstruction Status: Acute (3) Diabetic peripheral neuropathy associated with type 2 diabetes mellitus: Sliding scale insulin Initiate Lantus 10 units nightly Status: Acute (4) ASHD (arteriosclerotic heart disease): Continue home medications Status: Acute (5) Acute hyperkalemia: Follow closely. Hold any further repeat potassium tomorrow Continue low-dose fluids No further Kayexalate unless potassium increases. Status: Acute Additional A&P Information No current evidence for sepsis. History of CLL. Hold ibrutinib. Lovenox for DVT prophylaxis Attestations Medical Necessity Statement*: Needs continued hospitalization for treatment of COVID-19 pneumonia with antiviral, steroids, supportive care Coding Level of Care Code Acute Shrinking Machine Operator for Jordin Moreno Diagnoses Pneumonia due to 2019 novel coronavirus U07.1; J12.82 Acute kidney injury superimposed on chronic kidney disease N17.9; N18.9 Diabetic peripheral neuropathy associated with type 2 diabetes mellitus E11.42 ASHD (arteriosclerotic heart disease) I25.10 Acute hyperkalemia E87.5
[2021-01-09 13:22] LABS: Glucose Point of Care 473 mg/dL (70-110)
[2021-01-09 16:43] LABS: Glucose Point of Care 425 mg/dL (70-110)
[2021-01-09] MEDS: cefepime 1,000 MG in sodium chloride 0.9% (plus) 100 ML 100 MG IV (18:07)
[2021-01-09 20:27] LABS: Glucose Point of Care 426 mg/dL (70-110)
[2021-01-09] MEDS: insulin glargine 100 units/1 mL 10 UNIT SUBCUT (21:14)
[2021-01-10] VITALS (13 sets, daily range): BP systolic 116–168; BP diastolic 60–83; PULSE 92–109; RESP 16–20; TEMP 36.6–37.3; O2SAT 88–94
[2021-01-10] MEDS: cefepime 1,000 MG in sodium chloride 0.9% (plus) 100 ML 100 MG IV ×2 (05:11→20:13)
[2021-01-10] MEDS: remdesivir 100 MG in sodium chloride 0.9% (100 ml) 100 ML IV (06:08)
[2021-01-10 06:10] LABS: Basophils % 0.1 %; Hematocrit 32.2 % (42.0-52.0); Hemoglobin 10.3 g/dL (11.7-16.6); Lymphocytes # 12.1 10^3/uL (0.8-4.8); Lymphocytes % 58.3 %; Mean Corpuscular Volume 87.5 fL (80-94); Mean Platelet Volume 10.8 fL (7.4-10.4); Monocytes # 0.6 10^3/uL (0.2-0.9); Monocytes % 2.8 %; Neutrophils # 8.02 10^3/uL (1.8-7.7); Neutrophils % 38.4 %; Nucleated Red Blood Cells % 0 %; Platelet Count 119 10^3/cmm (130-400); Red Blood Count 3.68 10^6/uL (4.1-5.3); White Blood Count 20.8 10^3/uL (4.0-10.0)
[2021-01-10 06:31] LABS: Glucose Point of Care 409 mg/dL (70-110)
[2021-01-10 06:51] LABS: D Dimer 1.51 ug/mIFEU (0-0.59)
[2021-01-10 07:09] LABS: Slide Review Slide Review Perform
[2021-01-10 07:27] LABS: Alanine Aminotransferase 12 U/L (0-41); Albumin Level 3.1 g/dL (3.5-5.2); Alkaline Phosphatase 53 IU/L (40-130); Anion Gap 20.5 (5-19); Aspartate Amino Transferase 17 U/L (0-40); C Reactive Protein 16.7 mg/L (0.0-4.9); Calcium 7.8 mg/dL (8.5-10.5); Carbon Dioxide 15 mmol/L (22-29); Chloride 101 mmol/L (98-107); Globulin 2.7 g/dL (1.3-4.6); Glucose 364 mg/dL (65-115); Osmolality Calculated 312 mOsm/kg (285-295); Potassium 5.5 mmol/L (3.5-5.1); Sodium 131 mmol/L (136-145); Total Bilirubin 0.3 mg/dL (0.15-1.2); Total Protein 5.8 g/dL (6.6-8.7)
[2021-01-10 07:31] LABS: Blood Urea Nitrogen 82 mg/dL (8-23)
[2021-01-10 07:58] LABS: Ferritin 504 ng/mL (30-400)
[2021-01-10 08:45] LABS: Creatine Phosphokinase 203 U/L (39-308)
[2021-01-10] MEDS: aspirin 81 mg EC Tablet PO (09:06)
[2021-01-10] MEDS: tamsulosin 0.4 mg Capsule PO (09:06)
[2021-01-10] MEDS: finasteride 5 mg Tablet PO (09:06)
[2021-01-10] MEDS: sodium polystyrene sulfonate 15 gm/60 mL Btl 30 GM PO (09:06)
[2021-01-10] MEDS: pantoprazole DR 40 mg Tablet PO (09:06)
[2021-01-10] MEDS: isosorbide mononitrate ER 60 mg Tablet PO (09:06)
[2021-01-10] MEDS: amlodipine 10 mg Tablet PO (09:06)
[2021-01-10] MEDS: dexamethasone 4 mg/mL INJ 6 MG IVP (09:07)
[2021-01-10] MEDS: isosorbide mononitrate ER 30 mg Tablet PO (09:07)
[2021-01-10 11:10] LABS: Glucose Point of Care 439 mg/dL (70-110)
[2021-01-10] MEDS: FUROsemide 10 mg/mL SDV 4mL 40 MG IVP (12:00)
--- NOTE | 2021-01-10 13:09 | P.PN_ITS ---
Subjective Subjective: Interval history: Valente reports he feels a little more short of breath. He reports his hands, and legs are more swollen. Nurse relates the bladder scan reveals no significant urinary retention. Medications: Reviewed: Yes Vitals/I&O/Wt Last Vital Signs Temp 98.6 F 01/10/21 11:34 Pulse 96 01/10/21 11:44 Resp 18 01/10/21 11:41 BP 157/83 01/10/21 11:34 Pulse Ox 92 01/10/21 11:41 01/09/21 01/10/21 01/10/21 22:59 06:59 14:59 Intake Total 1426.667 / 1826.667 240 / 2066.667 200 / 200 Output Total 0 / 650 500 / 1150 Balance 1426.667 / 1176.667 -260 / 916.667 200 / 200 Weight last 48 hrs Weight 101.151 kg Physical Exam Narrative: EXAM NARRATIVE: General exam no apparent distress Coarse breath sounds noted bilaterally Abdomen is soft with positive bowel sounds Extremities no cyanosis clubbing. 1+ edema is noted Data : 01/10/21 05:35 01/10/21 05:35 Micro: Microbiology 01/09/21 01:48 Blood Culture - Preliminary Blood NEGATIVE TO DATE 01/08/21 19:40 Blood Culture - Preliminary Blood NEGATIVE TO DATE A&P Assessment and plan (1) Pneumonia due to 2019 novel coronavirus: Continue remdesivir Continue dexamethasone Combivent every 6 hours Incentive spirometry Cefepime was initiated prophylactically currently. 5 days planned unless strong evidence of bacterial infection noted Check MRSA PCR Some worsening edema and complaints of more shortness of breath. Lasix 40 mg IV x1 will be given. Inflammatory markers are decreasing Status: Acute (2) Acute kidney injury superimposed on chronic kidney disease: Not improved No significant urinary retention Note that renal ultrasound recently done demonstrated no obstruction Discontinue fluids Lasix 40 mg IV x1 secondary to above Status: Acute (3) Diabetic peripheral neuropathy associated with type 2 diabetes mellitus: Sliding scale insulin Continue Lantus 10 units nightly Status: Acute (4) ASHD (arteriosclerotic heart disease): Continue home medications Status: Acute (5) Acute hyperkalemia: Kayexalate 30 g p.o. x1 Repeat potassium this evening Status: Acute Additional A&P Information No current evidence for sepsis. History of CLL. Hold ibrutinib. Lovenox for DVT prophylaxis Attestations Medical Necessity Statement*: Needs continued hospital stay secondary to acute kidney injury, with failure to improve as well as COVID-19 pneumonia. Coding Level of Care Code Acute Lasting Room Supervisor for [facility] Fwd Diagnoses Pneumonia due to 2019 novel coronavirus U07.1; J12.82 Acute kidney injury superimposed on chronic kidney disease N17.9; N18.9 Diabetic peripheral neuropathy associated with type 2 diabetes mellitus E11.42 ASHD (arteriosclerotic heart disease) I25.10 Acute hyperkalemia E87.5
--- NOTE | 2021-01-10 13:38 | PM.CONSULT ---
Providers/Reason For Consult Consulting Physician/Specialty*: Nephrology Reason for Consult*: SHAYLA on CKD Attending Physician: Stephen Golden MD Primary Care Provider: Alejandro Macias MD History of Present Illness History of Present Illness Thank you for consultation, today at the pleasure of reviewing this very pleasant 75-year-old gentleman for evaluation of acute on chronic kidney disease. He presented to our facility with nonproductive cough, elevated temperature of 100.1, oxygen saturation of 92% on 3 L. He was subsequently diagnosed with COVID-19 and has been treated with Decadron and remdesivir. Today he feels not to good, tired, unwell, can't get cool. Breathing comfortably without O2. He has some mild edema in the body. Pending Lasix, having been on NS at 50mL/hr, this was stopped this morning. Bladder scan 170mL today. Previously renal sonogram had identified a solid appearing cyst, however, I note that this is believed to be a hemorrhagic cyst and not neoplastic in nature. He does have a history of chronic kidney disease, his serum creatinine levels have historically ranged between 2 and 3. On 01/08 on presentation his serum creatinine was 3.1, yesterday also 3.1 and today slightly increased at 3.3. 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 He has a known history of CLL, chronic leukocytosis, on admission it was 18.6 and stayed 20.8. He usually takes ibrutinib, this is currently on hold. He follows with Dr. Benavidez as an outpatient for bilateral renal cysts, BPH with LUTS and history of gross hematuria. Hemodynamics ok, robust following hospitalization. Review of Systems Narrative: Constitutional: Weakness, fatigue Respiratory: No SOB on exertion, comfortable at rest CardioVasc: No chest pain, palpitations Gastrointestinal: No nausea, no vomiting Neurological: No seizures, no AMS Derm: No new rashes, lesions or wounds Immunological: No seasonal and no food allergies Meds/Allergies Home Medications and Allergies Home Medications Medication Instructions Recorded Confirmed Last Taken Type amlodipine 10 mg tablet 10 mg PO DAILY 11/22/19 01/09/21 04/30/20 History aspirin 81 mg tablet,delayed 81 mg PO DAILY 11/22/19 01/09/21 04/30/20 History release ibrutinib 140 mg tablet 280 mg PO DAILY tab 11/22/19 01/09/2104/30/20 History loratadine 10 mg tablet 10 mg PO DAILY 11/22/19 01/09/21 04/30/20 History magnesium oxide 400 mg PO BID 11/22/19 01/09/21 04/30/20 History nitroglycerin 0.4 mg sublingual 0.4 mg SUBLINGUAL Q5M PRN 11/22/19 01/09/21 Unknown History tablet docusate sodium [Colace] 100 mg PO BID PRN 12/02/19 01/09/21 04/30/20 History fluticasone propionate [Flonase 1 spray INTRANASAL BID 12/02/19 01/09/21 05/01/20 History Allergy Relief] insulin aspart U-100 [Novolog See Rx Instructions .ROUTE .COMPLEX 12/02/19 01/09/21 Unknown History Flexpen U-100 Insulin] acetaminophen 325 mg tablet 325 mg PO QID PRN 06/13/20 01/09/21 Unknown History tamsulosin 0.4 mg capsule 0.4 mg PO QDAY #90 cap 06/13/20 01/09/21 Unknown Rx finasteride 5 mg tablet 5 mg PO DAILY 07/25/20 01/09/21 Unknown History isosorbide mononitrate 30 mg 30 mg PO DAILY #30 tab 09/21/20 01/09/21 Unknown Rx tablet,extended release 24 hr isosorbide mononitrate 60 mg 60 mg PO DAILY #30 tab 09/21/20 01/09/21 Unknown Rx tablet,extended release 24 hr atorvastatin 10 mg tablet 10 mg PO DAILY 11/14/20 01/09/21 Unknown History losartan 50 mg tablet 100 mg PO DAILY tab 11/14/20 01/09/21 Unknown History alogliptin 12.5 mg tablet 12.5 mg PO DAILY 12/14/20 01/09/21 Unknown History cholecalciferol (vitamin D3) 25 50 mcg PO DAILY cap 12/14/20 01/09/21 Unknown History mcg (1,000 unit) capsule glucosamine-chondroitin 250 mg-200 1 tab PO DAILY tab 12/14/20 01/09/21 Unknown History mg tablet insulin glargine 100 unit/mL (3 See Rx Instructions .ROUTE 12/14/20 01/09/21 Unknown History mL) subcutaneous pen .COMPLEX ml Allergies Allergy/AdvReac Type Severity Reaction Status Date / Time allopurinol Allergy ALGY-Rash Verified 01/08/21 19:28 Iodinated Contrast Media Allergy ALGY-Hives Verified 01/08/21 19:28 metformin Allergy ADR-Fatigue Verified 01/08/21 19:28 d Current Medications Current Medications Generic Name Dose Route Start Last Admin Trade Name Freq PRN Reason Stop Dose Admin Albuterol/Ipratropium 1 puff 01/09/21 16:00 01/10/21 11:40 Ipratropium-Albuterol 4 Gm Mdi INHALATION 1 puff QID.RESPIRATORY DIONTE Administration Amlodipine Besylate 10 mg 01/09/21 09:00 01/10/21 09:06 Amlodipine 10 Mg Tablet PO 10 mg DAILY DIONTE Administration Aspirin 81 mg 01/09/21 09:00 01/10/21 09:06 Aspirin 81 Mg Ec Tablet PO 81 mg DAILY DIONTE Administration Dexamethasone 6 mg 01/09/21 09:15 01/10/21 09:07 Dexamethasone 4 Mg/Ml Inj IVP 6 mg Q24H DIONTE Administration Finasteride 5 mg 01/09/21 09:00 01/10/21 09:06 Finasteride 5 Mg Tablet PO 5 mg DAILY DIONTE Administration Remdesivir 100 mg/ Sodium 100 mls @ 100 mls/hr 01/10/21 06:00 01/10/21 07:54 Chloride IV 01/13/21 06:59 Infused Q24H DIONTE Infusion Cefepime HCl 1,000 mg/ Sodium 100 mls @ 100 mls/hr 01/09/21 16:00 01/10/21 07:53 Chloride IV Infused Q12H DIONTE Infusion Protocol Insulin Aspart 0 unit 01/09/21 18:00 01/10/21 12:01 Insulin Aspart 100 Unit/1 Ml SUBCUT 18 unit WM&BEDTIME DIONTE Administration Protocol Insulin Glargine 10 unit 01/09/21 21:00 01/09/21 21:14 Insulin Glargine 100 Units/1 Ml SUBCUT 10 unit BEDTIME DIONTE Administration Isosorbide Mononitrate 60 mg 01/09/21 09:00 01/10/21 09:06 Isosorbide Mononitrate Er 60 Mg Tablet PO 60 mg DAILY DIONTE Administration Isosorbide Mononitrate 30 mg 01/09/21 09:00 01/10/21 09:07 Isosorbide Mononitrate Er 30 Mg Tablet PO 30 mg DAILY DIONTE Administration Pantoprazole Sodium 40 mg 01/09/21 09:00 01/10/21 09:[address] 40 Mg Tablet PO 40 mg DAILY DIONTE Administration Tamsulosin HCl 0.4 mg 01/09/21 09:00 01/10/21 09:06 Tamsulosin 0.4 Mg Capsule PO 0.4 mg DAILY DIONTE Administration PFSH Acute PFSH: Medical History (Updated 01/09/21 @ 03:40 by Harper Bunn MD) ASHD (arteriosclerotic heart disease) BPH loc w urin obs/LUTS Carotid stenosis, bilateral CKD (chronic kidney disease) CLL (chronic lymphocytic leukemia) Complex renal cyst Diabetes Dyslipidemia Gross hematuria HTN (hypertension) Nocturia Scrotal edema Surgical History H/O removal of testicle S/P appendectomy S/P CABG (coronary artery bypass graft) S/P PTCA (percutaneous transluminal coronary angioplasty) Status cardiac pacemaker Family History Mother , in her 70's Diabetes CAD (coronary artery disease) Father , at age 69 CAD (coronary artery disease) Hypertension Other Stroke Social History Alcohol intake: current Alcohol intake frequency: holidays/special occasions only Household members: spouse Marital status: Current occupational status: retired History of recent travel: No Vitals/I&O/Wt Last Vital Signs Temp 98.6 F 01/10/21 11:34 Pulse 96 01/10/21 11:44 Resp 18 01/10/21 11:41 BP 157/83 01/10/21 11:34 Pulse Ox 92 01/10/21 11:41 01/09/21 01/10/21 01/10/21 22:59 06:59 14:59 Intake Total 1426.667 / 1826.667 240 / 2066.667 200 / 200 Output Total 0 / 650 500 / 1150 Balance 1426.667 / 1176.667 -260 / 916.667 200 / 200 Weight last 48 hrs Weight 101.151 kg Physical Exam Narrative: EXAM NARRATIVE: Constitutional: Awake, comfortable HEENT: Wet mucosa, no jvp, non icteric Lungs: Bilaterally clear without discernible wheeze, rales in all lung zones CVS: S1 S2, no murmurs Abdo: Soft, BS ok Ext 4: Minimal edema, peripheral perfusion with no cyanosis Neurological: Grossly non-focal Data Micro: Micro: Microbiology 01/09/21 01:48 Blood Culture - Pr eliminary Blood NEGATIVE TO RAND E 01/08/21 19:40 Blood Culture - Pr eliminary Blood NEGATIVE TO RAND E A&P Additional A&P Information 1. Acute on chronic kidney disease The cause of the acute decline in renal function from baseline is unclear, may relate to underlying sepsis mediated acute tubular injury versus prerenal azotemia. We do need to exclude obstructive uropathy although it has not been evident in the past. Underlying chronic kidney disease likely secondary to combination of hypertensive arterionephrosclerosis and and renovascular disease. I appreciate the dosing of Lasix this morning and cessation of intravenous fluid. Of note tumor lysis syndrome for CLL that is controlled like this would be highly unusual. We will do a limited evaluation to include fractional excretion of sodium, urea, serum uric acid, TSH, CPK. No need for additional imaging given the history of renal imaging that is completed and also the bladder scan at bedside. No indication for hemodialysis today. Strict I's and O's Avoid usual nephrotoxic agents Close monitoring of renal function over the next few days. 2. Covid pneumonitis Being treated with dexamethasone, IV remdesivir, droplet isolation, supplemental oxygen as needed. Management per primary team 3. Serum chemistry Anion gap metabolic acidosis, hyperkalemia Lactic acid noted to be normal, likely secondary to uremia We will give oral sodium bicarbonate tablets, Kayexalate and diuretics being given for the hyperkalemia, close monitoring of serum chemistry 4. Hemodynamics The remained stable at this time, continue to monitor Lawson Perry MD Nephrology [phone] Patient seen and examined via telemedicine, with the assistance of the bedside RN > 25 min spent in evaluation and mgmt of patient Consult Attestations Medical Necessity Statement: eval for SHAYLA Coding Level of Care Code Acute Bioinformatics Research Technician for Jordin Moreno
[2021-01-10] MEDS: sodium bicarbonate 650 mg Tablet PO ×2 (15:20→21:30)
[2021-01-10 16:33] LABS: Urine Creatinine 90 mg/dL (39-259)
[2021-01-10 17:14] LABS: Urea Nitrogen,Urine Random 837 mg/dL
[2021-01-10 17:31] LABS: Glucose Point of Care 271 mg/dL (70-110)
[2021-01-10 17:36] LABS: Add Urine Microscopic? YES; Bilirubin Urine Neg (Negative); Blood Urine 3+ (Negative); Glucose Urine UA 2+ (Normal); Ketones Urine Negative (Negative); Leukocyte Esterase Urine Negative (Negative); Nitrate Urine Negative (Negative); Protein Urine 1+ (Negative); RBC Urine 0-4 /hpf (0-2); Squamous Epithelial Cell Urine 0-4 /hpf (0-5); Urine Appearance Clear (CLEAR); Urine Color Straw (Yellow); Urobilinogen Urine Norm (Negative); WBC Urine 0-4 /hpf (0-5); pH Urine 5 (5-7)
[2021-01-10 17:37] LABS: Add Urine Culture? Yes; Bacteria Urine 2+ /hpf; Coarse Granular Casts Urine 0-4 /lpf; Mucus Urine TRACE /hpf
[2021-01-10 20:04] LABS: Potassium 4.9 mmol/L (3.5-5.1)
[2021-01-10 20:14] LABS: Creatine Phosphokinase 258 U/L (39-308); Thyroid Stimulating Hormone 1.42 uIU/mL (0.27-4.20); Uric Acid 9.1 mg/dL (3.4-7.0)
[2021-01-10 21:30] LABS: Glucose Point of Care 466 mg/dL (70-110)
[2021-01-10] MEDS: insulin glargine 100 units/1 mL 10 UNIT SUBCUT (21:31)
[2021-01-11] VITALS (15 sets, daily range): BP systolic 106–142; BP diastolic 40–66; PULSE 75–103; RESP 16–20; TEMP 36.2–37.2; O2SAT 92–96
[2021-01-11] MEDS: cefepime 1,000 MG in sodium chloride 0.9% (plus) 100 ML 100 MG IV ×2 (05:15→17:50)
[2021-01-11 05:49] LABS: Alanine Aminotransferase 13 U/L (0-41); Albumin Level 3.1 g/dL (3.5-5.2); Alkaline Phosphatase 52 IU/L (40-130); Anion Gap 19.5 (5-19); Aspartate Amino Transferase 19 U/L (0-40); Carbon Dioxide 17 mmol/L (22-29); Chloride 100 mmol/L (98-107); Globulin 2.8 g/dL (1.3-4.6); Glucose 267 mg/dL (65-115); Osmolality Calculated 310 mOsm/kg (285-295); Potassium 4.5 mmol/L (3.5-5.1); Sodium 132 mmol/L (136-145); Total Bilirubin 0.4 mg/dL (0.15-1.2); Total Protein 5.9 g/dL (6.6-8.7)
[2021-01-11 05:53] LABS: Blood Urea Nitrogen 87 mg/dL (8-23)
[2021-01-11] MEDS: remdesivir 100 MG in sodium chloride 0.9% (100 ml) 100 ML IV (05:54)
[2021-01-11 06:39] LABS: Glucose Point of Care 322 mg/dL (70-110)
--- NOTE | 2021-01-11 08:53 | P.PN_ITS ---
Subjective Subjective: Interval history: feels a little better. urinating without difficulty Medications: Reviewed: Yes Vitals/I&O/Wt Last Vital Signs Temp 98.7 F 01/11/21 08:00 Pulse 76 01/11/21 08:00 Resp 16 01/11/21 08:00 BP 124/40 01/11/21 08:00 Pulse Ox 95 01/11/21 08:00 01/10/21 01/11/21 01/11/21 22:59 06:59 14:59 Intake Total 1420 / 1620 100 / 1720 Balance 1420 / 1620 100 / 1720 Physical Exam Const: COMMON NORMALS: no acute distress GENERAL APPEARANCE: cooperative Resp: AUSCULTATION: crackles Extremity: GENERAL: Yes edema (trace LE) Data : 01/11/21 05:04 01/11/21 05:04 Other Labs: CK 258 A&P Additional A&P Information 1. Acute kidney injury, nonoliguric, BUN/Cr slightly worse 2. COVID pneumonia 3. 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 Metabolic acidosis 5. Mild hyponatremia 6. Anemia Recommend: Continue sodium bicarbonate. Increase insulin. Attestations Medical Necessity Statement*: see above Time Spent in Patient Care: 16 - 35 minutes Coding Level of Care Code Acute Medium Cycle Salesperson for Jordin Moreno
[2021-01-11] MEDS: dexamethasone 4 mg/mL INJ 6 MG IVP (09:11)
[2021-01-11 09:25] LABS: Basophils % 0.1 %; Hematocrit 30.6 % (42.0-52.0); Hemoglobin 9.9 g/dL (11.7-16.6); Lymphocytes # 9.3 10^3/uL (0.8-4.8); Lymphocytes % 57.7 %; Mean Corpuscular HGB Conc 32.4 g/dL (30.0-36.0); Mean Corpuscular Hemoglobin 27.7 pg (28.0-34.0); Mean Corpuscular Volume 85.5 fL (80-94); Mean Platelet Volume 10.9 fL (7.4-10.4); Monocytes # 0.6 10^3/uL (0.2-0.9); Monocytes % 3.7 %; Neutrophils # 6.13 10^3/uL (1.8-7.7); Neutrophils % 38.1 %; Nucleated Red Blood Cells % 0 %; Platelet Count 126 10^3/cmm (130-400); Red Blood Count 3.58 10^6/uL (4.1-5.3); Red Cell Distribution Width 15.1 % (12.1-15.1); White Blood Count 16.1 10^3/uL (4.0-10.0)
[2021-01-11] MEDS: tamsulosin 0.4 mg Capsule PO (10:18)
[2021-01-11] MEDS: isosorbide mononitrate ER 60 mg Tablet PO (10:18)
[2021-01-11] MEDS: amlodipine 10 mg Tablet PO (10:18)
[2021-01-11] MEDS: isosorbide mononitrate ER 30 mg Tablet PO (10:18)
[2021-01-11] MEDS: pantoprazole DR 40 mg Tablet PO (10:18)
[2021-01-11] MEDS: aspirin 81 mg EC Tablet PO (10:19)
[2021-01-11] MEDS: finasteride 5 mg Tablet PO (10:19)
[2021-01-11] MEDS: sodium bicarbonate 650 mg Tablet PO ×3 (10:19→21:02)
[2021-01-11 11:04] LABS: Glucose Point of Care 460 mg/dL (70-110)
--- NOTE | 2021-01-11 11:51 | P.PN_ITS ---
Subjective Subjective: Interval history: Valente reports he feels like his breathing is a little bit better. He still feels slightly swollen. Medications: Reviewed: Yes Vitals/I&O/Wt Last Vital Signs Temp 99.0 F 01/11/21 11:17 Pulse 89 01/11/21 11:42 Resp 18 01/11/21 11:36 BP 130/62 01/11/21 11:17 Pulse Ox 93 01/11/21 11:36 01/10/21 01/11/21 01/11/21 22:59 06:59 14:59 Intake Total 1420 / 1620 100 / 1720 350 / 350 Balance 1420 / 1620 100 / 1720 350 / 350 Physical Exam Narrative: EXAM NARRATIVE: General exam no apparent distress Coarse breath sounds noted bilaterally Abdomen is soft with positive bowel sounds Extremities no cyanosis clubbing. Trace edema is noted Data : 01/11/21 05:04 01/11/21 05:04 A&P Assessment and plan (1) Pneumonia due to 2019 novel coronavirus: Continue remdesivir Continue dexamethasone Combivent every 6 hours Incentive spirometry Cefepime was initiated prophylactically currently. 5 days planned unless strong evidence of bacterial infection noted MRSA PCR is pending Received Lasix 40 mg IV x1 01/10 for fluid overload. Inflammatory markers had decreased. Repeat tomorrow.. Currently on 3 L of oxygen. Status: Acute (2) Acute kidney injury superimposed on chronic kidney disease: Not improved No significant urinary retention Note that renal ultrasound recently done demonstrated no obstruction Appreciate nephrology consultation Status: Acute (3) Diabetic peripheral neuropathy associated with type 2 diabetes mellitus: Sliding scale insulin Increase Lantus to 20 units. Lantus 10 units subcu x1 currently as blood sugars are not well controlled. Status: Acute (4) ASHD (arteriosclerotic heart disease): Continue home medications Status: Acute (5) Acute hyperkalemia: Improved after Kayexalate. Status: Acute Additional A&P Information No current evidence for sepsis. History of CLL. Hold ibrutinib. 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
[2021-01-11 13:39] LABS: Glucose Point of Care 477 mg/dL (70-110)
[2021-01-11] MEDS: insulin glargine 100 units/1 mL 10 UNIT SUBCUT (13:56)
[2021-01-11 16:17] LABS: Glucose Point of Care 460 mg/dL (70-110)
[2021-01-11] MEDS: nitroglycerin 0.4 mg sublingual Tablet (19:36)
--- NOTE | 2021-01-11 20:09 | PC.NURSE ---
called into room by pt complaining of chest pain and states I get angina from time to time and take nitro for it orders received from Dr. Bunn to give 0.4mg nitro sublingual once. pt stated within 5 minutes the pain is gone. Will continue to monitor pt for chest pain/shortness of breath.
[2021-01-11 20:45] LABS: Glucose Point of Care 439 mg/dL (70-110)
[2021-01-11] MEDS: insulin glargine 100 units/1 mL 20 UNIT SUBCUT (21:04)
[2021-01-12] VITALS (15 sets, daily range): BP systolic 130–161; BP diastolic 63–82; PULSE 81–103; RESP 16–22; TEMP 36.4–37.2; O2SAT 92–97
[2021-01-12] MEDS: cefepime 1,000 MG in sodium chloride 0.9% (plus) 100 ML 100 MG IV ×2 (05:22→16:39)
[2021-01-12 06:26] LABS: Glucose Point of Care 286 mg/dL (70-110)
[2021-01-12] MEDS: remdesivir 100 MG in sodium chloride 0.9% (100 ml) 100 ML IV (06:38)
[2021-01-12 06:57] LABS: Basophils % 0.1 %; Hematocrit 29.6 % (42.0-52.0); Hemoglobin 9.7 g/dL (11.7-16.6); Lymphocytes % 64.4 %; Mean Corpuscular HGB Conc 32.8 g/dL (30.0-36.0); Mean Corpuscular Hemoglobin 27.4 pg (28.0-34.0); Mean Corpuscular Volume 83.6 fL (80-94); Mean Platelet Volume 10.3 fL (7.4-10.4); Monocytes # 0.5 10^3/uL (0.2-0.9); Neutrophils # 5.52 10^3/uL (1.8-7.7); Neutrophils % 32.2 %; Nucleated Red Blood Cells % 0 %; Platelet Count 147 10^3/cmm (130-400); Red Blood Count 3.54 10^6/uL (4.1-5.3); Red Cell Distribution Width 14.9 % (12.1-15.1); White Blood Count 17.2 10^3/uL (4.0-10.0)
[2021-01-12 07:13] LABS: D Dimer 1.93 ug/mIFEU (0-0.59)
[2021-01-12 07:21] LABS: Alanine Aminotransferase 15 U/L (0-41); Albumin Level 3.1 g/dL (3.5-5.2); Alkaline Phosphatase 48 IU/L (40-130); Anion Gap 17.4 (5-19); Aspartate Amino Transferase 18 U/L (0-40); C Reactive Protein 0.4 mg/L (0.0-4.9); Calcium 7.9 mg/dL (8.5-10.5); Carbon Dioxide 19 mmol/L (22-29); Chloride 104 mmol/L (98-107); Ferritin 530 ng/mL (30-400); Globulin 2.7 g/dL (1.3-4.6); Glucose 289 mg/dL (65-115); Osmolality Calculated 322 mOsm/kg (285-295); Potassium 4.4 mmol/L (3.5-5.1); Sodium 136 mmol/L (136-145); Total Bilirubin 0.5 mg/dL (0.15-1.2); Total Protein 5.8 g/dL (6.6-8.7)
[2021-01-12 07:27] LABS: Blood Urea Nitrogen 94 mg/dL (8-23)
[2021-01-12 07:54] LABS: Slide Review Slide Review Perform
[2021-01-12] MEDS: aspirin 81 mg EC Tablet PO (09:54)
[2021-01-12] MEDS: sodium bicarbonate 650 mg Tablet PO ×3 (09:54→21:47)
[2021-01-12] MEDS: amlodipine 10 mg Tablet PO (09:54)
[2021-01-12] MEDS: isosorbide mononitrate ER 30 mg Tablet PO (09:54)
[2021-01-12] MEDS: dexamethasone 4 mg/mL INJ 6 MG IVP (09:54)
[2021-01-12] MEDS: finasteride 5 mg Tablet PO (09:54)
[2021-01-12] MEDS: pantoprazole DR 40 mg Tablet PO (09:54)
[2021-01-12] MEDS: isosorbide mononitrate ER 60 mg Tablet PO (09:54)
[2021-01-12] MEDS: tamsulosin 0.4 mg Capsule PO (09:54)
--- NOTE | 2021-01-12 10:13 | P.PN_ITS ---
Subjective Subjective: Interval history: Valente reports he may feel a little bit better. He is tired of being in the hospital. Feels like his breathing is about the same. Swelling is less. Medications: Reviewed: Yes Vitals/I&O/Wt Last Vital Signs Temp 98.4 F 01/12/21 07:46 Pulse 84 01/12/21 07:46 Resp 16 01/12/21 07:46 BP 130/64 01/12/21 07:46 Pulse Ox 93 01/12/21 07:53 01/11/21 01/12/21 01/12/21 22:59 06:59 14:59 Intake Total 370 / 970 220 / 1190 100 / 100 Output Total 1250 / 2200 Balance 370 / 20 -1030 / -1010 100 / 100 Physical Exam Narrative: EXAM NARRATIVE: General exam no apparent distress Coarse breath sounds noted bilaterally. Good air movement Abdomen is soft with positive bowel sounds Extremities no cyanosis clubbing. No significant edema Data : 01/12/21 06:20 01/12/21 06:20 Micro: Microbiology 01/10/21 15:45 Urine Culture - Preliminary Urine,Clean Catch Enterococcus species 01/10/21 15:45 MRSA Culture - Final Nose A&P Assessment and plan (1) Pneumonia due to 2019 novel coronavirus: Continue remdesivir Continue dexamethasone Combivent every 6 hours Incentive spirometry Cefepime was initiated prophylactically currently. 5 days planned unless strong evidence of bacterial infection noted. Small number of Enterococcus is growing in the urine. MRSA PCR negative Received Lasix 40 mg IV x1 01/10 for fluid overload. CRP has decreased. Currently on 3 L of oxygen. Status: Acute (2) Acute kidney injury superimposed on chronic kidney disease: Not improved No significant urinary retention Note that renal ultrasound recently done demonstrated no obstruction Appreciate nephrology consultation Status: Acute (3) Diabetic peripheral neuropathy associated with type 2 diabetes mellitus: Sliding scale insulin Continue Lantus 20 units at night. Blood sugars are improved Status: Acute (4) ASHD (arteriosclerotic heart disease): Continue home medications Status: Acute (5) Acute hyperkalemia: Improved after Kayexalate. Status: Acute Additional A&P Information No current evidence for sepsis. History of CLL. Hold ibrutinib. Lovenox for DVT prophylaxis Possible discharge 2 to 3 days if renal function improves and oxygen weans. Attestations Medical Necessity Statement*: Needs continued hospitalization for COVID-19 pneumonia requiring antiviral, supportive care with oxygen Coding Level of Care Code Acute Reduction Furnace Operator Helper for [facility] Fwd Diagnoses Pneumonia due to 2019 novel coronavirus U07.1; J12.82 Acute kidney injury superimposed on chronic kidney disease N17.9; N18.9 Diabetic peripheral neuropathy associated with type 2 diabetes mellitus E11.42 ASHD (arteriosclerotic heart disease) I25.10 Acute hyperkalemia E87.5
[2021-01-12] MEDS: nitroglycerin 0.4 mg sublingual Tablet SUBLINGUAL ×2 (10:42→14:33)
[2021-01-12 11:06] LABS: Glucose Point of Care 404 mg/dL (70-110)
--- NOTE | 2021-01-12 13:57 | P.PN_ITS ---
Subjective Subjective: Interval history: has chest pressure; requesting ntg Medications: Reviewed: Yes Vitals/I&O/Wt Last Vital Signs Temp 99.0 F 01/12/21 11:48 Pulse 86 01/12/21 11:48 Resp 16 01/12/21 11:48 BP 160/82 01/12/21 11:48 Pulse Ox 96 01/12/21 11:48 01/11/21 01/12/21 01/12/21 22:59 06:59 14:59 Intake Total 370 / 970 220 / 1190 100 / 100 Output Total 1250 / 2200 Balance 370 / 20 -1030 / -1010 100 / 100 Physical Exam Const: GENERAL APPEARANCE: anxious Resp: AUSCULTATION: rales Extremity: GENERAL: Yes edema (trace) Data : 01/12/21 06:20 01/12/21 06:20 Micro: Microbiology 01/10/21 15:45 Urine Culture - Preliminary Urine,Clean Catch Enterococcus species 01/10/21 15:45 MRSA Culture - Final Nose A&P Additional A&P Information 1. Acute kidney injury, nonoliguric, BUN/Cr stable 2. COVID pneumonia 3. 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 Metabolic acidosis, improved 5. Hyperglycemia Recommend: Continue sodium bicarbonate. Increase insulin. No indication for dialysis at this time. Attestations Medical Necessity Statement*: see above Coding Level of Care Code Acute Rail Transportation Tabeler for Jordin Moreno
[2021-01-12 17:09] LABS: Glucose Point of Care 392 mg/dL (70-110)
[2021-01-12 21:38] LABS: Glucose Point of Care 405 mg/dL (70-110)
[2021-01-12] MEDS: insulin glargine 100 units/1 mL 20 UNIT SUBCUT (21:48)
[2021-01-13] VITALS (10 sets, daily range): BP systolic 137–159; BP diastolic 65–88; PULSE 81–103; RESP 16–22; TEMP 36.4–36.8; O2SAT 91–96
[2021-01-13] MEDS: cefepime 1,000 MG in sodium chloride 0.9% (plus) 100 ML 100 MG IV ×2 (04:53→17:56)
[2021-01-13 06:41] LABS: Glucose Point of Care 142 mg/dL (70-110)
[2021-01-13] MEDS: remdesivir 100 MG in sodium chloride 0.9% (100 ml) 100 ML IV (07:07)
--- NOTE | 2021-01-13 07:57 | PM.PN ---
Subjective Subjective: Interval history: Valente reports he feels a little bit better. Does not feel swollen. Laboratory pending this morning. Shortness of breath is less. Medications: Reviewed: Yes Vitals/I&O/Wt Last Vital Signs Temp 97.6 F 01/13/21 03:41 Pulse 90 01/13/21 03:41 Resp 18 01/13/21 03:41 BP 145/73 01/13/21 03:41 Pulse Ox 96 01/13/21 03:41 01/12/21 01/13/21 01/13/21 22:59 06:59 14:59 Intake Total 340 / 690 100 / 790 Output Total 175 / 175 0 / 175 Balance 165 / 515 100 / 615 Physical Exam Narrative: EXAM NARRATIVE: General exam no apparent distress Coarse breath sounds noted bilaterally. Good air movement Abdomen is soft with positive bowel sounds Extremities no cyanosis clubbing. No significant edema Data : 01/12/21 06:20 01/12/21 06:20 Micro: Microbiology 01/10/21 15:45 Urine Culture - Preliminary Urine,Clean Catch Enterococcus species A&P Assessment and plan (1) Pneumonia due to 2019 novel coronavirus: He has now completed his course of remdesivir Continue dexamethasone Combivent every 6 hours Incentive spirometry Cefepime was initiated prophylactically currently. 5 days planned unless strong evidence of bacterial infection noted. Small number of Enterococcus is growing in the urine. MRSA PCR negative Received Lasix 40 mg IV x1 01/10 for fluid overload. CRP has decreased. Currently on 3 L of oxygen. Status: Acute (2) Acute kidney injury superimposed on chronic kidney disease: Slightly improved yesterday Await laboratory today No significant urinary retention Note that renal ultrasound recently done demonstrated no obstruction Appreciate nephrology consultation Status: Acute (3) Diabetic peripheral neuropathy associated with type 2 diabetes mellitus: Sliding scale insulin Continue Lantus 20 units at night. Blood sugars are improved Status: Acute (4) ASHD (arteriosclerotic heart disease): Continue home medications Status: Acute (5) Acute hyperkalemia: Improved after Kayexalate. Status: Acute Additional A&P Information No current evidence for sepsis. History of CLL. Hold ibrutinib. Lovenox for DVT prophylaxis Possible discharge tomorrow if remains stable and renal function does not worsen. Attestations Medical Necessity Statement*: Needs continued hospital stay secondary to acute kidney injury, COVID-19 pneumonia with new oxygen requirement from baseline. Coding Level of Care Code Acute Telecommunication Equipment Repairer for [facility] Fwd Diagnoses Pneumonia due to 2019 novel coronavirus U07.1; J12.82 Acute kidney injury superimposed on chronic kidney disease N17.9; N18.9 Diabetic peripheral neuropathy associated with type 2 diabetes mellitus E11.42 ASHD (arteriosclerotic heart disease) I25.10 Acute hyperkalemia E87.5
[2021-01-13] MEDS: isosorbide mononitrate ER 30 mg Tablet PO (09:16)
[2021-01-13] MEDS: amlodipine 10 mg Tablet PO (09:16)
[2021-01-13] MEDS: finasteride 5 mg Tablet PO (09:16)
[2021-01-13] MEDS: aspirin 81 mg EC Tablet PO (09:16)
[2021-01-13] MEDS: tamsulosin 0.4 mg Capsule PO (09:16)
[2021-01-13] MEDS: sodium bicarbonate 650 mg Tablet PO ×4 (09:16→22:28)
[2021-01-13] MEDS: pantoprazole DR 40 mg Tablet PO (09:16)
[2021-01-13] MEDS: isosorbide mononitrate ER 60 mg Tablet PO (09:16)
[2021-01-13] MEDS: dexamethasone 4 mg/mL INJ 6 MG IVP (09:17)
--- NOTE | 2021-01-13 09:54 | PM.PN ---
Subjective Subjective: Interval history: Breathing and chest pressure improved. Medications: Reviewed: Yes Vitals/I&O/Wt Last Vital Signs Temp 97.6 F 01/13/21 08:00 Pulse 81 01/13/21 08:00 Resp 17 01/13/21 08:00 BP 146/67 01/13/21 08:00 Pulse Ox 94 01/13/21 08:00 01/12/21 01/13/21 01/13/21 22:59 06:59 14:59 Intake Total 340 / 690 100 / 790 340 / 340 Output Total 175 / 175 0 / 175 200 / 200 Balance 165 / 515 100 / 615 140 / 140 Physical Exam Const: COMMON NORMALS: no acute distress GENERAL APPEARANCE: cooperative Extremity: GENERAL: Yes edema (trace) Data : 01/12/21 06:20 01/13/21 11:31 Micro: Microbiology 01/10/21 15:45 Urine Culture - Preliminary Urine,Clean Catch Enterococcus species A&P Additional A&P Information 1. Acute kidney injury, BUN/Cr improving. Unclear if all urine output is recorded. Bladder scan PVR ordered. 2. COVID pneumonia, completed remdesivir 3. 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 Metabolic acidosis 5. Hyperglycemia, improved Recommend: Increase sodium bicarbonate. Attestations Medical Necessity Statement*: see above Time Spent in Patient Care: 16 - 35 minutes Coding Level of Care Code Acute Green Chain Offbearer for [facility] Moreno
--- NOTE | 2021-01-13 10:14 | DCPLANNER ---
Pt doesn't answer the phone so called his ; May Renae @ [phone], explained the IM to her. No questions, copy will be sent into the room
[2021-01-13 10:54] LABS: Glucose Point of Care 207 mg/dL (70-110)
[2021-01-13 12:10] LABS: Anion Gap 17.4 (5-19); Blood Urea Nitrogen 80 mg/dL (8-23); Carbon Dioxide 18 mmol/L (22-29); Chloride 107 mmol/L (98-107); Glucose 206 mg/dL (65-115); Osmolality Calculated 316 mOsm/kg (285-295); Phosphorus 3.3 mg/dL (2.5-4.5); Potassium 4.4 mmol/L (3.5-5.1); Sodium 138 mmol/L (136-145)
[2021-01-13 16:58] LABS: Glucose Point of Care 337 mg/dL (70-110)
[2021-01-13 21:09] LABS: Glucose Point of Care 468 mg/dL (70-110)
[2021-01-13] MEDS: insulin glargine 100 units/1 mL 20 UNIT SUBCUT (22:29)
[2021-01-14] VITALS (9 sets, daily range): BP systolic 140–150; BP diastolic 61–75; PULSE 72–114; RESP 18–20; TEMP 36.4–36.7; O2SAT 88–96
[2021-01-14] MEDS: cefepime 1,000 MG in sodium chloride 0.9% (plus) 100 ML 100 MG IV (05:36)
[2021-01-14 06:17] LABS: Basophils % 0.1 %; Eosinophils % 0.1 %; Hematocrit 30.3 % (42.0-52.0); Hemoglobin 9.6 g/dL (11.7-16.6); Lymphocytes # 9.3 10^3/uL (0.8-4.8); Lymphocytes % 63.9 %; Mean Corpuscular HGB Conc 31.7 g/dL (30.0-36.0); Mean Corpuscular Volume 85.1 fL (80-94); Mean Platelet Volume 10.2 fL (7.4-10.4); Monocytes # 0.6 10^3/uL (0.2-0.9); Monocytes % 3.9 %; Neutrophils % 31.7 %; Nucleated Red Blood Cells % 0 %; Platelet Count 172 10^3/cmm (130-400); Red Blood Count 3.56 10^6/uL (4.1-5.3); Red Cell Distribution Width 15.3 % (12.1-15.1); White Blood Count 14.5 10^3/uL (4.0-10.0)
[2021-01-14 06:52] LABS: Alanine Aminotransferase 16 U/L (0-41); Albumin Level 3.2 g/dL (3.5-5.2); Alkaline Phosphatase 48 IU/L (40-130); Anion Gap 16.4 (5-19); Aspartate Amino Transferase 15 U/L (0-40); C Reactive Protein 0.4 mg/L (0.0-4.9); Carbon Dioxide 20 mmol/L (22-29); Chloride 105 mmol/L (98-107); Globulin 2.7 g/dL (1.3-4.6); Glucose 181 mg/dL (65-115); Osmolality Calculated 314 mOsm/kg (285-295); Potassium 4.4 mmol/L (3.5-5.1); Sodium 137 mmol/L (136-145); Total Bilirubin 0.6 mg/dL (0.15-1.2); Total Protein 5.9 g/dL (6.6-8.7)
[2021-01-14 06:54] LABS: Glucose Point of Care 194 mg/dL (70-110)
[2021-01-14 07:20] LABS: Blood Urea Nitrogen 85 mg/dL (8-23)
--- NOTE | 2021-01-14 07:38 | PC.NURSE ---
notified Dr Golden that patient's BUN is 85 today.
[2021-01-14] MEDS: aspirin 81 mg EC Tablet PO (08:11)
[2021-01-14] MEDS: finasteride 5 mg Tablet PO (08:11)
[2021-01-14] MEDS: amlodipine 10 mg Tablet PO (08:12)
[2021-01-14] MEDS: sodium bicarbonate 650 mg Tablet PO ×2 (08:12→13:12)
[2021-01-14] MEDS: isosorbide mononitrate ER 60 mg Tablet PO (08:12)
[2021-01-14] MEDS: pantoprazole DR 40 mg Tablet PO (08:12)
[2021-01-14] MEDS: isosorbide mononitrate ER 30 mg Tablet PO (08:12)
[2021-01-14] MEDS: tamsulosin 0.4 mg Capsule PO (08:12)
--- NOTE | 2021-01-14 08:37 | PM.PN ---
Subjective Subjective: Interval history: no new complaints, anxious for discharge home Medications: Reviewed: Yes Vitals/I&O/Wt Last Vital Signs Temp 97.6 F 01/14/21 04:04 Pulse 85 01/14/21 03:59 Resp 18 01/14/21 03:59 BP 140/61 01/14/21 03:59 Pulse Ox 96 01/14/21 03:59 01/13/21 01/14/21 01/14/21 22:59 06:59 14:59 Intake Total 700 / 1160 720 / 1880 100 / 100 Output Total 525 / 1100 1300 / 2400 250 / 250 Balance 175 / 60 -580 / -520 -150 / -150 Data : 01/14/21 05:06 01/14/21 05:06 Micro: Microbiology 01/09/21 01:48 Blood Culture - Final Blood NO GROWTH AFTER 5 DAYS 01/08/21 19:40 Blood Culture - Final Blood NO GROWTH AFTER 5 DAYS 01/10/21 15:45 Urine Culture - Final Urine,Clean Catch Enterococcus faecalis A&P Additional A&P Information 1. Acute kidney injury, BUN/Cr stable, good urine output yesterday, PVR < 100 ml 2. COVID pneumonia, completed remdesivir 3. 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 Metabolic acidosis, stable 5. Hyperglycemia, improved Recommend: Stable for discharge from renal standpoint. Continue sodium bicarbonate. Outpatient labs this week. Outpatient nephrology follow-up (has asset protection lead). Attestations Medical Necessity Statement*: per primary service Time Spent in Patient Care: 16 - 35 minutes Coding Level of Care Code Acute Teen Counselor for Jordin Moreno
--- NOTE | 2021-01-14 09:19 | P.DS_ITS ---
Discharge Providers Date of Admission: 01/08/21 21:59 Date of Discharge: January 14, 2021 Attending Provider at Admission: Harper Bunn Attending Provider at Discharge: Stephen Golden MD Primary Care Provider: Alejandro Macias MD Diagnoses at Discharge Discharge Diagnosis (1) Pneumonia due to 2019 novel coronavirus: Status: Acute (2) Acute kidney injury superimposed on chronic kidney disease: Status: Acute (3) Diabetic peripheral neuropathy associated with type 2 diabetes mellitus: Status: Acute (4) ASHD (arteriosclerotic heart disease): Status: Acute (5) Acute hyperkalemia: Status: Acute Reason for Visit Reason for Visit: SOB, TEMP Hospital Course Hospital Course Valente is a 75-year-old white male who presented to the hospital short of breath. There was concern of sepsis and he was placed on IV antibiotics, and he was ultimately determined to have COVID-19 pneumonia. He had some worsening renal function over his baseline and nephrology was consulted. Renal function was followed closely during his hospitalization and his ARB was discontinued secondary to hyperkalemia noted initially. For Covid he received remdesivir, and dexamethasone. Bladder scan was done with post void residual demonstrating no obstructive cause of his worsened renal function. Recent renal ultrasound done on December 29 demonstrated no obstruction as well. He did have concern for UTI and grew a small number of Enterococcus on his urine culture. By January 14 he was requesting to go home. His oxygen need had decreased during his hospital stay and a home O2 evaluation will be done prior to discharge. He will need no further antiviral at discharge. Dexamethasone can be discontinued at discharge. He will follow-up with his primary care provider in the next 3 days and receive a BMP for follow-up of renal function. Medications of losartan, magnesium oxide, alogliptin, ibrutinib will all be held at least until follow-up. He will follow-up with his semiconductor assembler within a week. He will return for any worsening. Discharge creatinine 2.9. Physical Exam Narrative: EXAM NARRATIVE: General exam no apparent distress Neck is supple no lymphadenopathy or thyromegaly Cardiovascular regular rate and rhythm without murmur Lungs clear Abdomen is soft with positive bowel sounds Extremities no cyanosis clubbing or edema. Discharge Data Data Completed and Pending: Completed Studies During Hospitalization Category Date Time Status XR chest 1V hamzah ble [id number] Urgent Exams 07/19/21 19:08 Completed Labs from last 24 hours 01/14/21 01/14/21 01/14/21 06:45 05:06 05:06 WBC 14.5 H RBC 3.56 L Hgb 9.6 L Hct 30.3 L MCV 85.1 MCH 27.0 L MCHC 31.7 RDW 15.3 H Plt Count 172 MPV 10.2 Neut % (Auto) 31.7 Lymph % (Auto) 63.9 [place] % (Auto) 3.9 Eos % (Auto) 0.1 Baso % (Auto) 0.1 Neut # (Auto) 4.60 Lymph # (Auto) 9.3 H [place] # (Auto) 0.6 Eos # (Auto) 0.0 Baso # (Auto) 0.0 Nucleated RBC % (a uto) 0 Nucleated RBCs # 0.0 Sodium 137 Potassium 4.4 Chloride 105 Carbon Dioxide 20 L Anion Gap 16.4 BUN 85 H* Creatinine 2.9 H GFR Calculation Not Reportable Glucose 181 H POC Glucose 194 H Calculated Osmolal ity 314 H Calcium 8.0 L Phosphorus Total Bilirubin 0.6 AST 15 ALT 16 Alkaline Phosphata se 48 C-Reactive Protein 0.4 Total Protein 5.9 L Albumin 3.2 L Globulin 2.7 01/13/21 01/13/21 01/13/21 21:05 16:47 11:31 WBC RBC Hgb Hct MCV MCH MCHC RDW Plt Count MPV Neut % (Auto) Lymph % (Auto) [place] % (Auto) Eos % (Auto) Baso % (Auto) Neut # (Auto) Lymph # (Auto) [place] # (Auto) Eos # (Auto) Baso # (Auto) Nucleated RBC % (a uto) Nucleated RBCs # Sodium Potassium Chloride Carbon Dioxide Anion Gap BUN Creatinine GFR Calculation Glucose POC Glucose 468 H 337 H Calculated Osmolal ity Calcium Phosphorus 3.3 Total Bilirubin AST ALT Alkaline Phosphata se C-Reactive Protein Total Protein Albumin Globulin 01/13/21 01/13/21 11:31 10:38 WBC RBC Hgb Hct MCV MCH MCHC RDW Plt Count MPV Neut % (Auto) Lymph % (Auto) [place] % (Auto) Eos % (Auto) Baso % (Auto) Neut # (Auto) Lymph # (Auto) [place] # (Auto) Eos # (Auto) Baso # (Auto) Nucleated RBC % (a uto) Nucleated RBCs # Sodium 138 Potassium 4.4 Chloride 107 Carbon Dioxide 18 L Anion Gap 17.4 BUN 80 H Creatinine 2.7 H GFR Calculation Not Reportable Glucose 206 H POC Glucose 207 H Calculated Osmolal ity 316 H Calcium 8.0 L Phosphorus Total Bilirubin AST ALT Alkaline Phosphata se C-Reactive Protein Total Protein Albumin Globulin Vitals: Last Vital Signs Temp 98.0 F 01/14/21 08:00 Pulse 72 01/14/21 08:00 Resp 18 01/14/21 08:00 BP 142/75 01/14/21 08:00 Pulse Ox 95 01/14/21 08:00 Discharge Plan Discharge Patient Disposition: Home Condition: Stable Prescriptions: New levofloxacin 250 mg tablet 250 mg PO DAILY Qty: 5 RF: 0 sodium bicarbonate 650 mg tablet 650 mg PO TID Qty: 90 RF: 0 Continued nitroglycerin [Nitrostat] 0.4 mg tablet, sublingual 0.4 mg SUBLINGUAL Q5M PRN (Reason: Chest Pain) RF: 0 amlodipine 10 mg tablet 10 mg PO DAILY RF: 0 loratadine 10 mg tablet 10 mg PO DAILY RF: 0 aspirin [Aspir-81] 81 mg tablet,delayed release (DR/EC) 81 mg PO DAILY RF: 0 cholecalciferol (vitamin D3) 25 mcg (1,000 unit) capsule 50 mcg PO DAILY RF: 0 glucosamine-chondroitin [Osteo Bi-Flex] 250-200 mg tablet 1 tab PO DAILY RF: 0 acetaminophen 325 mg tablet 325 mg PO QID PRN (Reason: Pain) RF: 0 tamsulosin 0.4 mg capsule 0.4 mg PO QDAY Qty: 90 RF: 3 finasteride 5 mg tablet 5 mg PO DAILY RF: 0 atorvastatin 10 mg tablet 10 mg PO DAILY RF: 0 isosorbide mononitrate 30 mg tablet extended release 24 hr 30 mg PO DAILY Qty: 30 RF: 3 isosorbide mononitrate 60 mg tablet extended release 24 hr 60 mg PO DAILY Qty: 30 RF: 3 docusate sodium [Colace] 100 mg Capsule 100 mg PO BID PRN (Reason: Constipation) RF: 0 fluticasone propionate [Flonase Allergy Relief] 50 mcg/actuation [place],Suspension 1 spray INTRANASAL BID RF: 0 insulin aspart U-100 [Novolog Flexpen U-100 Insulin] 100 unit/mL (3 mL) Insulin Pen See Rx Instructions .ROUTE .COMPLEX RF: 0 Lantus Solostar U-100 Insulin 100 unit/mL (3 mL) insulin pen See Rx Instructions .ROUTE .COMPLEX RF: 0 Discontinued ibrutinib 140 mg tablet 280 mg PO DAILY RF: 0 magnesium oxide 400 mg magnesium tablet 400 mg PO BID RF: 0 losartan 50 mg tablet 100 mg PO DAILY RF: 0 alogliptin 12.5 mg tablet 12.5 mg PO DAILY RF: 0 Discharge Orders: Discharge Order (Routine); Ordered 01/14/21 Ordered By: Stephen Golden Referrals: Alejandro Macias MD [Primary Care Provider] - 4-7 days (BMP on follow-up) Discharge Diet: Cardiac Discharge Activity: Increase activity as tolerated Patient Instructions: Opioid Safety Activity Restrictions/Additional Instructions: Home oxygen evaluation prior to discharge Give patient low potassium diet Follow-up with semiconductor assembler 1 week Follow-up with primary care provider 2 to 3 days with a BMP on follow-up. To determine when ibrutinib, losartan, alogliptin, magnesium oxide if and when they should be resumed Discharge Attestations Time Spent in Discharge Care*: greater than 30 min Quality Metrics Clinical Quality Measures During this hospital stay, did patient experience: None Coding Level of Care Code Acute Chg FW DC note Diagnoses Pneumonia due to 2019 novel coronavirus U07.1; J12.82 Acute kidney injury superimposed on chronic kidney disease N17.9; N18.9 Diabetic peripheral neuropathy associated with type 2 diabetes mellitus E11.42 ASHD (arteriosclerotic heart disease) I25.10 Acute hyperkalemia E87.5
[2021-01-14] MEDS: dexamethasone 4 mg/mL INJ 6 MG IVP (09:40)
--- NOTE | 2021-01-14 10:54 | PC.NURSE ---
Called patient's daughter Brooke Renae [phone] and updated her on patient's discharge.
[2021-01-14 12:11] LABS: Glucose Point of Care 156 mg/dL (70-110)
--- NOTE | 2021-01-14 13:12 | PC.NURSE ---
called patient's daughter and let her know patient is ready for discharge. she said she will be here shortly to flower picker patient.
--- NOTE | 2021-01-14 13:55 | PC.NURSE ---
discharge instructions given to patient and patient verbalized understanding of instructions. patient taken to private vehicle via wheelchair and assisted into private vehicle . patient's oxygen delivered by HOME and put in vehicle.
== END 2021-01-14 13:58 | disposition home or self-care (01) | DRG 177 ==
LOC: ER 22:37 → MEDSURG 23:13
PROVIDERS: Internal Medicine; Internal Medicine Nephrology; Admitting Provider Hospitalist; Emergency Provider Family Medicine; PCP Family Medicine; Visit Provider Internal Medicine
DX: U07.1 COVID-19 (principal); J12.82 Pneumonia due to coronavirus disease 2019; C91.10 Chronic lymphocytic leukemia of B-cell type not having achieved remission; N17.9 Acute kidney failure, unspecified; N39.0 Urinary tract infection, site not specified; I12.9 Hypertensive chronic kidney disease with stage 1 through stage 4 chronic kidney disease, or unspecified chronic kidney disease; E11.22 Type 2 diabetes mellitus with diabetic chronic kidney disease; N18.30 Chronic kidney disease, stage 3 unspecified; E78.5 Hyperlipidemia, unspecified; E11.42 Type 2 diabetes mellitus with diabetic polyneuropathy; N40.1 Benign prostatic hyperplasia with lower urinary tract symptoms; R35.1 Nocturia; I25.10 Atherosclerotic heart disease of native coronary artery without angina pectoris; Z95.1 Presence of aortocoronary bypass graft; Z95.0 Presence of cardiac pacemaker; E87.5 Hyperkalemia; Z79.899 Other long term (current) drug therapy; B95.2 Enterococcus as the cause of diseases classified elsewhere; Z79.4 Long term (current) use of insulin; Z79.82 Long term (current) use of aspirin
CPT/HCPCS: 36415; 36416; 36600; 51798; 71045; 80048; 80053; 81001; 82550; 82570; 82728; 82805; 82962; 83605; 83880; 84100; 84132; 84145; 84443; 84484; 84540; 84550; 85025; 85378; 86140; 87040; 87077; 87086; 87186; 87426; 87641; 93005; 94640; 94664; 96365; 96372; 96375; 97110; 97161; 97530; 99285; J0692; J1100; J1815 ×2; J1940; J1956; J3535; J7030; Q3014

== ENCOUNTER 2021-01-19 11:09 | Inpatient (IN) | payer MEDICARE, OTHER, SELFPAY ==
[2021-01-19 12:10] VITALS: BP 151/79; PULSE 107; RESP 18; TEMP 36.2; O2SAT 95; BMI 33.5
--- NOTE | 2021-01-19 12:13 | XR_ITS ---
WS: [id number] XR chest 1V portable [id number] REASON FOR EXAM: altered mental status FINDINGS: Examination was performed is a left lateral decubitus study portion of the left hemithorax is not inc luded on the imaging. This is the area that needs to be imaged if this examination was done to evalua te for free fluid. As on previous examination of 01/08/2021 there are infiltrative changes right mid lung peripherally, r ight lower lung, left mid and lower lung. The does not appear to be significant interval change. No other significant chest abnormality is noted. XR/XR chest 1V portable [id number] IMPRESSION: Likely stable pulmonary infiltrates as above.
--- NOTE | 2021-01-19 12:13 | CT_ITS ---
WS: [id number] CT head wo con* [id number] REASON FOR EXAM: altered mental status IV CONTRAST ADMINISTERED: Nonenhanced TOTAL EXAM DLP: 617.[address] scans at [facility] use at least one of these dose optimization techniques: automat ed exposure control; mA and/or kV adjustment per patient size (includes targeted exams where dose is matched to clinical indication); or iterative reconstruction. FINDINGS: Patient was constantly moving despite best efforts. Reconstructions in the coronal and sagittal plane s are not diagnostic however the axial images are adequate. No midline shift or other significant mass effect. No findings of intracranial hemorrhage and no extra-axial fluid collections. No acute focal brain parenchymal abnormality is identified in the cerebral hemispheres, brainstem, ce rebellar hemispheres. The ventricles are normal. Bony calvarium is intact. The skull base is normal. Mucosal thickening and fluid in the maxillary and ethmoid sinuses compatible with chronic sinusitis. CT/CT head wo con* [id number] IMPRESSION: No acute intracranial abnormality.
[2021-01-19] MEDS: LORazepam 2 mg/mL INJ 1 mL 1 MG IM ×2 (13:25→14:40)
[2021-01-19] MEDS: haloperidol inj 5 mg/mL INJ 1 mL 2.5 MG IM ×2 (13:25→14:40)
[2021-01-19] MEDS: sodium chloride 0.9% 1,000 ML 999 ML IV (13:30)
[2021-01-19 13:52] LABS: Basophils % 0.2 %; Eosinophils # 0.1 10^3/uL (0.0-0.8); Eosinophils % 0.4 %; Hematocrit 33.9 % (42.0-52.0); Hemoglobin 10.6 g/dL (11.7-16.6); Lymphocytes # 11.4 10^3/uL (0.8-4.8); Lymphocytes % 63.3 %; Mean Corpuscular HGB Conc 31.3 g/dL (30.0-36.0); Mean Corpuscular Hemoglobin 27.7 pg (28.0-34.0); Mean Corpuscular Volume 88.7 fL (80-94); Mean Platelet Volume 10.3 fL (7.4-10.4); Monocytes # 0.8 10^3/uL (0.2-0.9); Monocytes % 4.4 %; Nucleated Red Blood Cells % 0 %; Platelet Count 153 10^3/cmm (130-400); Red Blood Count 3.82 10^6/uL (4.1-5.3); Red Cell Distribution Width 15.5 % (12.1-15.1)
[2021-01-19 14:14] LABS: Troponin(5th) Baseline 76 ng/L (0-15)
[2021-01-19 14:15] LABS: Slide Review Slide Review Perform
[2021-01-19 14:25] LABS: Alanine Aminotransferase 20 U/L (0-41); Albumin Level 3.5 g/dL (3.5-5.2); Alkaline Phosphatase 62 IU/L (40-130); Aspartate Amino Transferase 20 U/L (0-40); Blood Urea Nitrogen 44 mg/dL (8-23); Carbon Dioxide 22 mmol/L (22-29); Chloride 105 mmol/L (98-107); Creatine Phosphokinase 93 U/L (39-308); Globulin 2.5 g/dL (1.3-4.6); Glucose 75 mg/dL (65-115); NT Pro B Type Natriuretic Pept 1430 pg/mL (0-450); Osmolality Calculated 298 mOsm/kg (285-295); Sodium 139 mmol/L (136-145); Total Bilirubin 0.7 mg/dL (0.15-1.2)
[2021-01-19 14:39] LABS: Add Urine Microscopic? YES; Bilirubin Urine Neg (Negative); Blood Urine 3+ (Negative); Glucose Urine UA Norm (Normal); Ketones Urine Negative (Negative); Leukocyte Esterase Urine Negative (Negative); Nitrate Urine Negative (Negative); Protein Urine 2+ (Negative); Urine Appearance Clear (CLEAR); Urine Color Yellow (Yellow); Urobilinogen Urine Norm (Negative); pH Urine 5 (5-7)
[2021-01-19 14:41] LABS: Add Urine Culture? Yes; Bacteria Urine 1+ /hpf; RBC Urine 0-4 /hpf (0-2); Squamous Epithelial Cell Urine 0-4 /hpf (0-5)
[2021-01-19 15:15] LABS: Glucose Point of Care 92 mg/dL (70-110)
[2021-01-19] MEDS: LORazepam 2 mg/mL INJ 1 mL 1 MG IVP (15:24)
--- NOTE | 2021-01-19 15:28 | PC.NURSE ---
patient has been uncooperative with care during his ER stay. he is unable to follow commands and removes monitoring continuously. vitals are obtained as patient allows. He recognizes his name otherwise is confused and difficult to redirect. he has had a sitter at bedside since his arrival
--- NOTE | 2021-01-19 15:48 | CTR_ITS ---
PROCEDURE INFORMATION: Exam: CT Chest Without Contrast; Diagnostic Exam date and time: 01/19/2021 3:48 PM Age: 75 years old Clinical indication: Cough and fever and shortness of breath; Prior surgery; Surgery type: Pace, appy, cabg, orch; Additional info: Urinary retention, nephropathy, infectious source TECHNIQUE: Imaging protocol: Diagnostic computed tomography of the chest without contrast. Radiation optimization: All CT scans at this facility use at least one of these dose optimization techniques: automated exposure control; mA and/or kV adjustment per patient size (includes targeted exams where dose is matched to clinical indication); or iterative reconstruction. COMPARISON: CR XR chest 1V portable [id number] 01/19/2021 12:35 PM RADIATION DOSE METRICS: Total DLP (mGy-cm): 2405.34 FINDINGS: Tubes, catheters and devices: Pacemaker. Lungs: Patchy bilateral airspace opacities likely reflects an infectious process. Pleural spaces: Unremarkable. No pneumothorax. No pleural effusion. Heart: Cardiomegaly. Aorta: Unremarkable. No aortic aneurysm. Lymph nodes: Several calcified mediastinal and perihilar lymph nodes. Scattered prominent subcentimeter short axis mediastinal lymph nodes, nonspecific. Bones/joints: Sternotomy wires. Soft tissues: Unremarkable. IMPRESSION: 1. Patchy bilateral airspace opacities likely reflects an infectious process. 2. Sternotomy wires. 3. Pacemaker. 4. Cardiomegaly. 5. Several calcified mediastinal and perihilar lymph nodes. 6. Scattered prominent subcentimeter short axis mediastinal lymph nodes, nonspecific. PROCEDURE INFORMATION: Exam: CT Abdomen And Pelvis Without Contrast Exam date and time: 01/19/2021 3:48 PM Age: 75 years old Clinical indication: Cough and fever and shortness of breath; Prior surgery; Surgery type: Pace, appy, cabg, orch; Additional info: Urinary retention, nephropathy, infectious source TECHNIQUE: Imaging protocol: Computed tomography of the abdomen and pelvis without contrast. Radiation optimization: All CT scans at this facility use at least one of these dose optimization techniques: automated exposure control; mA and/or kV adjustment per patient size (includes targeted exams where dose is matched to clinical indication); or iterative reconstruction. COMPARISON: CR XR chest 1V portable [id number] 01/19/2021 12:35 PM RADIATION DOSE METRICS: Total DLP (mGy-cm): 2405.34 FINDINGS: Liver: Hepatic steatosis. Gallbladder and bile ducts: Cholelithiasis. Pancreas: Normal. No ductal dilation. Spleen: Calcified splenic granulomas. Adrenal glands: Normal. No mass. Kidneys and ureters: Right kidney exophytic 8.7 cm cystic lesion with a thick somewhat hyperdense wall measuring up to 7.5 mm. Left kidney 2.3 cm hyperdense cyst may reflect a hemorrhagic cyst. Stomach and bowel: Constipation. Appendix: No evidence of appendicitis. Intraperitoneal space: Unremarkable. No free air. No significant fluid collection. Vasculature: Unremarkable. No abdominal aortic aneurysm. Lymph nodes: Unremarkable. No enlarged lymph nodes. Urinary bladder: Unremarkable as visualized. Reproductive: Unremarkable as visualized. Bones/joints: Unremarkable. No acute fracture. Soft tissues: Unremarkable. CT/CT chest abd pel wo con IMPRESSION: 1. Negative for acute inflammatory process in the abdomen or pelvis. 2. Cholelithiasis. 3. Hepatic steatosis. 4. Calcified splenic granulomas. 5. Right kidney exophytic 8.7 cm cystic lesion with a thick somewhat hyperdense wall measuring up to 7.5 mm consistent with a Bosniak 3 lesion. Recommend urological consult. 6. Left kidney 2.3 cm hyperdense cyst may reflect a hemorrhagic cyst. 7. Constipation. COMMENTS: Consistent with the [employer]'s Incidental Findings Committee white paper (J Am Yari Radiol 2018): Any incidental renal lesion less than 1 cm or classified as too small to characterize, or any incidental cystic renal lesion characterized as simple-appearing, is likely benign. No follow-up imaging is recommended for these lesions per consensus recommendations based on imaging criteria. Radiation Dose CTDIVOL = (mGy): DLP = 2405.34~2405.34 (mGy-cm)
--- NOTE | 2021-01-19 16:49 | PM.HP ---
Providers/Chief Complaint Admitting Physician: Doug Vasquez MD Primary Care Provider: Alejandro Macias MD Chief Complaint: AMS COVID+ History of Present Illness Valente Renae is a 75 year old male with a past medical history significant for hypertension, dyslipidemia, diabetes mellitus, BPH with prior retention, coronary artery disease with history CABG, complete heart block prior pacemaker placement,Chronic stage 3 kidney disease with baseline creatinine around 2.6, and chronic lymphocytic leukemia, recently treated for COVID-19 pneumonia Most of the history taken over the phone by . She states he came home on Friday and since Friday around 12 hours after starting the antibiotics he started becoming more and more confused and agitated for the last 2 days along with him being not coherent since today morning so he was brought into the ER. While at home patient did not have any diarrhea, headache, fever, difficulty in breathing. As per the patient's blood sugar were running on the lower side as he was not eating well for which she had withheld his short-term insulin and was only getting Lantus. He also states because of his confusion she had called her primary care for which she received a Xanax and he took only 1 tablet. She did not repeat any more Xanax as that had seemed to make his mentation worse. In the ER patient was confused for which she required multiple doses of sedating medication including 3 mg of Ativan in divided dose and 7.5 mg of Haldol in divided dose along with 4 mg of Versed. Looking the ER showed a white count of 15,000, hemoglobin of 10.6, platelet count of 153, sodium of 139, potassium of 5, BUN of 44, creatinine of 2.5, AST/ALT of 20/20, baseline troponin of 76, proBNP of 1430, UA showing negative nitrite negative leuk esterase, 5-10 WBCs. Patient remained on room air saturating 95% with heart rate of 110 and blood pressure 150/80 mmHg during my examination. Review of Systems General: Reports: ROS unobtainable due to mental status Medications/Allergies Home Medications Medication Instructions Recorded Confirmed Last Taken Type amlodipine 10 mg tablet 10 mg PO DAILY 11/22/19 01/19/21 01/19/21 History aspirin 81 mg tablet,delayed 81 mg PO DAILY 11/22/19 01/19/21 01/19/21 History release loratadine 10 mg tablet 10 mg PO DAILY 11/22/19 01/19/21 01/19/21 History nitroglycerin 0.4 mg sublingual 0.4 mg SUBLINGUAL Q5M PRN 11/22/19 01/19/21 Unknown History tablet docusate sodium [Colace] 100 mg PO BID PRN 12/02/19 01/19/21 04/30/20 History fluticasone propionate [Flonase 1 spray INTRANASAL BID 12/02/19 01/19/21 01/18/21 History Allergy Relief] insulin aspart U-100 [Novolog See Rx Instructions .ROUTE .COMPLEX 12/02/19 01/19/21 Unknown History Flexpen U-100 Insulin] acetaminophen 325 mg tablet 325 mg PO QID PRN 06/13/20 01/19/21 Unknown History finasteride 5 mg tablet 5 mg PO DAILY 07/25/20 01/19/21 01/18/21 History isosorbide mononitrate 30 mg 30 mg PO DAILY #30 tab 09/21/20 01/19/21 01/18/21 Rx tablet,extended release 24 hr isosorbide mononitrate 60 mg 60 mg PO DAILY #30 tab 09/21/20 01/19/21 01/18/21 Rx tablet,extended release 24 hr atorvastatin 10 mg tablet 10 mg PO DAILY 11/14/20 01/19/21 01/18/21 History cholecalciferol (vitamin D3) 25 50 mcg PO DAILY cap 12/14/20 01/19/21 01/18/21 History mcg (1,000 unit) capsule glucosamine-chondroitin 250 mg-200 1 tab PO DAILY tab 12/14/20 01/19/21 01/12/21 History mg tablet insulin glargine 100 unit/mL (3 See Rx Instructions .ROUTE 12/14/20 01/19/21 01/18/21 History mL) subcutaneous pen .COMPLEX ml MDD see pharmacy comment levofloxacin 250 mg PO DAILY #5 tab 01/14/21 01/19/21 01/19/21 Rx sodium bicarbonate 650 mg PO TID #90 tab 01/14/21 01/19/21 01/19/21 Rx alprazolam [Xanax] 0.25 mg PO DAILY PRN 01/19/21 01/19/21 Unknown History losartan 100 mg PO DAILY 01/19/21 01/19/21 01/19/21 History tamsulosin 0.4 mg PO DAILY 01/19/21 01/19/21 01/19/21 History Allergies Allergy/AdvReac Type Severity Reaction Status Date / Time allopurinol Allergy ALGY-Rash Verified 01/08/21 19:28 Iodinated Contrast Media Allergy ALGY-Hives Verified 01/08/21 19:28 metformin Allergy ADR-Fatigue Verified 01/08/21 19:28 d PFSH Acute PFSH: Medical History (Updated 01/19/21 @ 17:33 by Jad Todd MD) ASHD (arteriosclerotic heart disease) BPH loc w urin obs/LUTS Carotid stenosis, bilateral CKD (chronic kidney disease) CLL (chronic lymphocytic leukemia) Complex renal cyst Diabetes Dyslipidemia Gross hematuria HTN (hypertension) Nocturia Scrotal edema Surgical History H/O removal of testicle S/P appendectomy S/P CABG (coronary artery bypass graft) S/P PTCA (percutaneous transluminal coronary angioplasty) Status cardiac pacemaker Family History Mother , in her 70's Diabetes CAD (coronary artery disease) Father , at age 69 CAD (coronary artery disease) Hypertension Other Stroke Social History Alcohol intake: current Alcohol intake frequency: holidays/special occasions only Household members: spouse Marital status: Current occupational status: retired History of recent travel: No Vitals/I&O/Wt Last Vital Signs Temp 97.1 F L 01/19/21 12:10 Pulse 107 H 01/19/21 12:10 Resp 18 01/19/21 12:10 BP 151/79 01/19/21 12:10 Pulse Ox 95 01/19/21 12:10 Weight last 48 hrs Weight 108.862 kg Physical Exam Narrative: EXAM NARRATIVE: General: No acute distress, confused, sitter at bedside, not alert, mildly sedated with medications HEENT: PERRLA, pupils bilaterally equal and reactive Chest: Normal vesicular breath sounds, no added sounds, equal good air entry bilaterally CVS: S1-S2 regular, no murmurs, no tachycardia, no gallops, no rubs Abdomen: Soft, nontender, no organomegaly, obese, bowel sounds present Neuro: No focal deficits, no facial deformity, nipples bilaterally equal and reactive, moving all 4 limbs, not tolerant Data : 01/19/21 13:30 01/19/21 13:30 Micro: Microbiology 01/19/21 14:13 Blood Culture - Preliminary Blood SPECIMEN COLLECTED 01/19/21 13:30 Blood Culture - Preliminary Blood SPECIMEN COLLECTED A&P Assessment and plan (1) Altered mental status: Status: Acute (2) Pneumonia due to 2019 novel coronavirus: Status: Acute (3) Diabetes: Status: Acute (4) S/P CABG (coronary artery bypass graft): Status: Acute (5) HTN (hypertension): Status: Acute (6) Status cardiac pacemaker: Status: Acute (7) CKD (chronic kidney disease): Status: Acute Additional A&P Information Altered mental status: In setting of recent COVID-19 pneumonia for which she was treated 5 days ago. Could be multifactorial. Unknown source for now. Patient's electrolytes including sodium, potassium within normal limits. BUN is at baseline, creatinine is at baseline. LFTs are within normal limits. CT head without contrast negative for any bleed or acute stroke. Patient's white count mildly elevated with recent admission and treatment with high-dose steroids and remdesivir cannot rule out meningitis. Have requested ER physician for lumbar puncture. Could be secondary to Levaquin. is not sure if patient has had Levaquin before. Could be secondary to recent COVID-19 pneumonia. Check blood culture, urine culture, MRSA swab, procalcitonin, urine Legionella, bacterial antigen, lactate, ammonia level, urine drug screen, CSF studies on lumbar puncture. Check stool studies. For now start patient on broad-spectrum antibiotics with vancomycin and ceftriaxone. Start patient on dexamethasone 6 mg IV daily. Patient already received course of remdesivir on his recent admission. Currently on room air. Continue isolation precautions as patient is not 14 days past positive test. Check D-dimer. If elevated will start on full dose anticoagulation. Patient will need anticoagulation for at least 14 days. Given his mental status patient will not be mobile much. Continue to monitor inflammatory markers including ESR, CRP, ferritin, fibrinogen, D-dimer. Precedex for agitation. Haldol 1 mg every 4 hourly as needed. Sitter at bedside. CAD/post CABG: Continue home dose of aspirin, statin, Imdur. Check HbA1c, lipid panel. Check echocardiogram. Hypertension: Goal blood pressure less than 140/90 mmHg. Continue home dose of Imdur, losartan. CKD: Creatinine at baseline. Medical reconciliation done for nephrotoxic drugs. Continue sodium bicarbonate tablets. We will monitor BMP daily. Currently patient does not have any electrolyte abnormalities or acidosis. Type 2 diabetes mellitus: Insulin sliding scale at low-dose protocol. Continue Lantus 20 units at bedtime. CODE STATUS: Discussed with in detail with over the phone. Patient is DNR/DNI. N.p.o. except meds for now. Famotidine for PUD prophylaxis Attestations Medical Necessity Statement*: Admission for more than two midnights for management and evaluation of altered mental status in setting of recent COVID-19 pneumonia, CKD, CAD post CABG. Time Spent in Patient Care: Greater than 35 minutes (>than 50% of time spent in counselling and/or direct pt care on unit). Coding Level of Care Code Acute Associate Consulting Engineer for Jordin Moreno Diagnoses Altered mental status R41.82 Pneumonia due to 2019 novel coronavirus U07.1; J12.82 Diabetes E11.9 S/P CABG (coronary artery bypass graft) Z95.1 HTN (hypertension) I10 Status cardiac pacemaker Z95.0 CKD (chronic kidney disease) N18.9
[2021-01-19] MEDS: midazolam 1 mg/mL INJ 2 mL 4 MG IVP (17:00)
--- NOTE | 2021-01-19 17:09 | W.ED.AMS ---
HPI - Altered Mental Status General: Chief Complaint: Altered Mental Status Stated Complaint: AMS/recent covid Time Seen by Provider: 01/19/21 12:12 [facility] PFSH: Medical History (Updated 01/15/21 @ 00:01 by ) ASHD (arteriosclerotic heart disease) BPH loc w urin obs/LUTS Carotid stenosis, bilateral CKD (chronic kidney disease) CLL (chronic lymphocytic leukemia) Complex renal cyst Diabetes Dyslipidemia Gross hematuria HTN (hypertension) Nocturia Scrotal edema Surgical History H/O removal of testicle S/P appendectomy S/P CABG (coronary artery bypass graft) S/P PTCA (percutaneous transluminal coronary angioplasty) Status cardiac pacemaker Family History Mother , in her 70's Diabetes CAD (coronary artery disease) Father , at age 69 CAD (coronary artery disease) Hypertension Other Stroke Social History Alcohol intake: current Alcohol intake frequency: holidays/special occasions only Household members: spouse Marital status: Current occupational status: retired History of recent travel: No Procedures Lumbar Puncture Time Out Performed: Yes Patient Position: right lateral decubitus Skin Prep: Povidone-Iodine 1% Local Anesthetic: lidocaine 1% Amount of anesthesia used (mL): 3 Spinal Needle Gauge: 22G Interspace Used: L3-L4 Fluid Initially Obtained: clear Complications: none Additional Comments: Consulted by Dr. Richter for lumbar tap. Patient having altered mental status was sedated with Versed to allow for procedure. Return of clear fluid CSF orders per Dr. Richter. Dr. Richter is managing the rest of the patient's care. Procedural Sedation Indication: other (Lumbar tap) Preparation: ekg monitor tech applied, pulse oximeter, supplemental O2 applied, reversal agents at bedside and suction/airway equipment at bedside Midazolam: IV Midazolam dose (mg): 4 Patient Tolerated Procedure: well Complications: none Course Vital Signs: Vital signs: Vital Signs Temperature 97.1 F L 01/19/21 12:10 Pulse Rate 107 H 01/19/21 12:10 Respiratory Rate 18 01/19/21 12:10 Blood Pressure 151/79 01/19/21 12:10 Pulse Oximetry 95 01/19/21 12:10 MDM - Altered Mental Status MDM Narrative: Medical decision making narrative: Consulted by Dr. Richter for lumbar tap patient. Procedural sedation done with IV Versed lumbar tap completed without complication specimen submitted to the lab orders per Dr. Richter. Dr. Richter is managing rest of the patient's care I was simply consulted for the LP. Lab Data: Labs: Lab Results 01/19/21 01/19/21 01/19/21 Range/Units 13:30 13:30 13:30 WBC 18.0 H (4.0-10.0) 10^3/ uL RBC 3.82 L (4.1-5.3) 10^6/u L Hgb 10.6 L (11.7-16.6) g/dL Hct 33.9 L (42.0-52.0) % MCV 88.7 (80-94) fL MCH 27.7 L (28.0-34.0) pg MCHC 31.3 (30.0-36.0) g/dL RDW 15.5 H (12.1-15.1) % Plt Count 153 (130-400) 10^3/c mm MPV 10.3 (7.4-10.4) fL Neut % (Auto) 31.0 % Lymph % (Auto) 63.3 % [place] % (Auto) 4.4 % Eos % (Auto) 0.4 % Baso % (Auto) 0.2 % Neut # (Auto) 5.60 (1.8-7.7) 10^3/u L Lymph # (Auto) 11.4 H (0.8-4.8) 10^3/u L [place] # (Auto) 0.8 (0.2-0.9) 10^3/u L Eos # (Auto) 0.1 (0.0-0.8) 10^3/u L Baso # (Auto) 0.0 (0.0-0.1) 10^3/u L Nucleated RBC % (a uto) 0 % Nucleated RBCs # 0.0 /100WBC Sodium 139 (136-145) mmol/L Potassium 5.0 (3.5-5.1) mmol/L Chloride 105 (98-107) mmol/L Carbon Dioxide 22 (22-29) mmol/L Anion Gap 17.0 (5-19) BUN 44 H (8-23) mg/dL Creatinine 2.5 H (0.7-1.2) mg/dL GFR Calculation Not Reportable Glucose 75 (65-115) mg/dL Calculated Osmolal ity 298 H (285-295) mOsm/k g Lactate 1.0 (0.5-2.2) mmol/L Calcium 9.0 (8.5-10.5) mg/dL Total Bilirubin 0.7 (0.15-1.2) mg/dL AST 20 (0-40) U/L ALT 20 (0-41) U/L Alkaline Phosphata se 62 (40-130) IU/L Creatine Kinase 93 (39-308) U/L Troponin T Baselin e (0-15) ng/L NT-Pro-B Natriuret Pep 1430 H (0-450) pg/mL Total Protein 6.0 L (6.6-8.7) g/dL Albumin 3.5 (3.5-5.2) g/dL Globulin 2.5 (1.3-4.6) g/dL Urine Color (Yellow) Urine Appearance (CLEAR) Urine pH (5-7) Ur Specific Gravit y (1.005-1.030) Urine Protein (Negative) Urine Glucose (UA) (Normal) Urine Ketones (Negative) Urine Blood (Negative) Urine Nitrate (Negative) Urine Bilirubin (Negative) Urine Urobilinogen (Negative) mg/dL Ur Leukocyte [place] ase (Negative) Urine RBC (0-2) /hpf Urine WBC (0-5) /hpf Ur Squamous Epith Cells (0-5) /hpf Amorphous Sediment Urine Bacteria (NONE) /hpf 01/19/21 01/19/21 Range/Units 13:30 13:45 WBC (4.0-10.0) 10^3/ uL RBC (4.1-5.3) 10^6/u L Hgb (11.7-16.6) g/dL Hct (42.0-52.0) % MCV (80-94) fL MCH (28.0-34.0) pg MCHC (30.0-36.0) g/dL RDW (12.1-15.1) % Plt Count (130-400) 10^3/c mm MPV (7.4-10.4) fL Neut % (Auto) % Lymph % (Auto) % [place] % (Auto) % Eos % (Auto) % Baso % (Auto) % Neut # (Auto) (1.8-7.7) 10^3/u L Lymph # (Auto) (0.8-4.8) 10^3/u L [place] # (Auto) (0.2-0.9) 10^3/u L Eos # (Auto) (0.0-0.8) 10^3/u L Baso # (Auto) (0.0-0.1) 10^3/u L Nucleated RBC % (a uto) % Nucleated RBCs # /100WBC Sodium (136-145) mmol/L Potassium (3.5-5.1) mmol/L Chloride (98-107) mmol/L Carbon Dioxide (22-29) mmol/L Anion Gap (5-19) BUN (8-23) mg/dL Creatinine (0.7-1.2) mg/dL GFR Calculation Glucose (65-115) mg/dL Calculated Osmolal ity (285-295) mOsm/k g Lactate (0.5-2.2) mmol/L Calcium (8.5-10.5) mg/dL Total Bilirubin (0.15-1.2) mg/dL AST (0-40) U/L ALT (0-41) U/L Alkaline Phosphata se (40-130) IU/L Creatine Kinase (39-308) U/L Troponin T Baselin e 76 H (0-15) ng/L NT-Pro-B Natriuret Pep (0-450) pg/mL Total Protein (6.6-8.7) g/dL Albumin (3.5-5.2) g/dL Globulin (1.3-4.6) g/dL Urine Color Yellow (Yellow) Urine Appearance Clear (CLEAR) Urine pH 5 (5-7) Ur Specific Gravit y 1.020 (1.005-1.030) Urine Protein 2+ H (Negative) Urine Glucose (UA) Norm (Normal) Urine Ketones Negative (Negative) Urine Blood 3+ H (Negative) Urine Nitrate Negative (Negative) Urine Bilirubin Neg (Negative) Urine Urobilinogen Norm (Negative) mg/dL Ur Leukocyte [place] ase Negative (Negative) Urine RBC 0-4 H (0-2) /hpf Urine WBC 5-10 H (0-5) /hpf Ur Squamous Epith Cells 0-4 H (0-5) /hpf Amorphous Sediment Not Reportable Urine Bacteria 1+ H (NONE) /hpf Discharge Plan Discharge Admit Provider: Doug Vasquez Coding Level of Care Code ED Per Diem Physical Therapist for Jordin Moreno
--- NOTE | 2021-01-19 17:09 | W.ED.AMS ---
HPI - Altered Mental Status General: Chief Complaint: Altered Mental Status Stated Complaint: AMS/recent covid Time Seen by Provider: 01/19/21 12:12 History of Present Illness: HPI narrative: the patient is a 75 year old male who comes to the ER with altered mental status. He was discharged on the after staying here for several days related to COVID-19 infection.. He has got history of hypertension, diabetes, coronary artery disease with CABG and pacemaker. CKD as well. He is not able to answer any questions he does not know his name only Review of Systems General: Reports: ROS unobtainable due to mental status PFS ED PFSH: Medical History (Updated 01/19/21 @ 17:33 by Jad Todd MD) ASHD (arteriosclerotic heart disease) BPH loc w urin obs/LUTS Carotid stenosis, bilateral CKD (chronic kidney disease) CLL (chronic lymphocytic leukemia) Complex renal cyst Diabetes Dyslipidemia Gross hematuria HTN (hypertension) Nocturia Scrotal edema Surgical History H/O removal of testicle S/P appendectomy S/P CABG (coronary artery bypass graft) S/P PTCA (percutaneous transluminal coronary angioplasty) Status cardiac pacemaker Family History Mother , in her 70's Diabetes CAD (coronary artery disease) Father , at age 69 CAD (coronary artery disease) Hypertension Other Stroke Social History Alcohol intake: current Alcohol intake frequency: holidays/special occasions only Household members: spouse Marital status: Current occupational status: retired History of recent travel: No Physical Exam Const: EXAM LIMITATIONS: altered mental status GENERAL APPEARANCE: combative ORIENTATION/CONSCIOUSNESS: Yes awake, Yes oriented to person and Yes confused HENMT: COMMON NORMALS: normocephalic, external ears normal and Normal external nose present HEAD & SCALP: normal to inspection and normocephalic NOSE: Normal external nose present EXTERNAL EAR: Yes external ears normal MOUTH: Normal oral and palatal mucosa present THROAT: posterior oropharynx normal Eye: COMMON NORMALS: Equal, round and reactive pupils present and EOMs intact bilaterally GENERAL EYE: appearance normal, both eyes and all related structures PUPIL: Yes Equal, round and reactive pupils present Neck/C-Spine: COMMON NORMALS: full ROM, no lymphadenopathy, no meningeal signs and no JVD GENERAL: Yes normal visual inspection Lymph: LYMPHATIC: no lymphadenopathy noted Chest: COMMONS NORMALS: normal inspection of the chest and normal palpation of entire chest wall Resp: COMMON NORMALS: normal respiratory effort, No retractions, No use of accessory muscles, clear to auscultation bilaterally and percussion normal EFFORT & INSPECTION: Yes able to speak in complete sentences AUSCULTATION: clear to auscultation bilaterally PERCUSSION: percussion normal Cardio: COMMON NORMALS: no JVD, regular rate, regular rhythm, S1 normal heart sound present, S2 normal heart sound present and Peripheral pulses 2+ throughout RATE: regular rate RHYTHM: regular rhythm HEART SOUNDS: S1 normal heart sound present and S2 normal heart sound present PERIPHERAL PULSES: Peripheral pulses 2+ throughout GI: COMMON NORMALS: Normal to inspection, nondistended, normoactive bowel sounds present, Soft to palpation, non-tender and no masses INSPECTION: Yes normal to inspection PALPATION: Yes Soft to palpation : COMMON NORMALS: Yes no CVA tenderness BLADDER/KIDNEY EXAM: Yes no CVA tenderness Back/Pelvis: COMMON NORMALS: no CVA tenderness, thoracic and lumbar spine normal to inspection, no thoracic nor lumbar tenderness and thoraco-lumbar ROM normal Extremity: COMMON NORMALS: normal to inspection, full ROM, capillary refill normal, no joint enlargement and no pedal edema GENERAL: Yes normal exam except as noted Neuro: COMMON NORMALS: CN's II-XII intact bilaterally, moves all extremities, no focal motor deficits and no sensory deficits noted SENSORIUM/ORIENTATION: Yes oriented to person MENINGEAL SIGNS: Yes no meningeal signs Skin: COMMON NORMALS: no rashes or lesions noted GENERAL SKIN EXAM: no rashes or lesions noted Course Vital Signs: Vital signs: Vital Signs Temperature 97.1 F L 01/19/21 12:10 Pulse Rate 107 H 01/19/21 12:10 Respiratory Rate 18 01/19/21 12:10 Blood Pressure 151/79 01/19/21 12:10 Pulse Oximetry 95 01/19/21 12:10 MDM - Altered Mental Status MDM Narrative: Medical decision making narrative: Patient came to the ER significantly altered. He was discharged 5 days ago after being admitted for COVID-19. says for the past 3 days at home is been significantly altered and just not responding to her appropriately. I found him today alert but oriented to only his name sometimes. He is unable to provide any recent history. He is agitated. I consulted with Dr. Rothman to help with a lumbar puncture. Labs showed white count 18 as well as his chronic kidney disease. Unclear what is causing his altered mental status but he was given IV fluids and antibiotics for presumed infectious process. Discussed with Dr. Matuhr who recommended lumbar puncture. I consulted with Dr. Beverly who performed the sedation and procedure and CSF was sent to the lab. Lab Data: Labs: Lab Results 01/19/21 01/19/21 01/19/21 Range/Units 13:30 13:30 13:30 WBC 18.0 H (4.0-10.0) 10^3/ uL RBC 3.82 L (4.1-5.3) 10^6/u L Hgb 10.6 L (11.7-16.6) g/dL Hct 33.9 L (42.0-52.0) % MCV 88.7 (80-94) fL MCH 27.7 L (28.0-34.0) pg MCHC 31.3 (30.0-36.0) g/dL RDW 15.5 H (12.1-15.1) % Plt Count 153 (130-400) 10^3/c mm MPV 10.3 (7.4-10.4) fL Neut % (Auto) 31.0 % Lymph % (Auto) 63.3 % [place] % (Auto) 4.4 % Eos % (Auto) 0.4 % Baso % (Auto) 0.2 % Neut # (Auto) 5.60 (1.8-7.7) 10^3/u L Lymph # (Auto) 11.4 H (0.8-4.8) 10^3/u L [place] # (Auto) 0.8 (0.2-0.9) 10^3/u L Eos # (Auto) 0.1 (0.0-0.8) 10^3/u L Baso # (Auto) 0.0 (0.0-0.1) 10^3/u L Nucleated RBC % (a uto) 0 % Nucleated RBCs # 0.0 /100WBC Sodium 139 (136-145) mmol/L Potassium 5.0 (3.5-5.1) mmol/L Chloride 105 (98-107) mmol/L Carbon Dioxide 22 (22-29) mmol/L Anion Gap 17.0 (5-19) BUN 44 H (8-23) mg/dL Creatinine 2.5 H (0.7-1.2) mg/dL GFR Calculation Not Reportable Glucose 75 (65-115) mg/dL Calculated Osmolal ity 298 H (285-295) mOsm/k g Lactate 1.0 (0.5-2.2) mmol/L Calcium 9.0 (8.5-10.5) mg/dL Total Bilirubin 0.7 (0.15-1.2) mg/dL AST 20 (0-40) U/L ALT 20 (0-41) U/L Alkaline Phosphata se 62 (40-130) IU/L Creatine Kinase 93 (39-308) U/L Troponin T Baselin e (0-15) ng/L NT-Pro-B Natriuret Pep 1430 H (0-450) pg/mL Total Protein 6.0 L (6.6-8.7) g/dL Albumin 3.5 (3.5-5.2) g/dL Globulin 2.5 (1.3-4.6) g/dL Urine Color (Yellow) Urine Appearance (CLEAR) Urine pH (5-7) Ur Specific Gravit y (1.005-1.030) Urine Protein (Negative) Urine Glucose (UA) (Normal) Urine Ketones (Negative) Urine Blood (Negative) Urine Nitrate (Negative) Urine Bilirubin (Negative) Urine Urobilinogen (Negative) mg/dL Ur Leukocyte Nimco ase (Negative) Urine RBC (0-2) /hpf Urine WBC (0-5) /hpf Ur Squamous Epith Cells (0-5) /hpf Amorphous Sediment Urine Bacteria (NONE) /hpf 01/19/21 01/19/21 Range/Units 13:30 13:45 WBC (4.0-10.0) 10^3/ uL RBC (4.1-5.3) 10^6/u L Hgb (11.7-16.6) g/dL Hct (42.0-52.0) % MCV (80-94) fL MCH (28.0-34.0) pg MCHC (30.0-36.0) g/dL RDW (12.1-15.1) % Plt Count (130-400) 10^3/c mm MPV (7.4-10.4) fL Neut % (Auto) % Lymph % (Auto) % [place] % (Auto) % Eos % (Auto) % Baso % (Auto) % Neut # (Auto) (1.8-7.7) 10^3/u L Lymph # (Auto) (0.8-4.8) 10^3/u L [place] # (Auto) (0.2-0.9) 10^3/u L Eos # (Auto) (0.0-0.8) 10^3/u L Baso # (Auto) (0.0-0.1) 10^3/u L Nucleated RBC % (a uto) % Nucleated RBCs # /100WBC Sodium (136-145) mmol/L Potassium (3.5-5.1) mmol/L Chloride (98-107) mmol/L Carbon Dioxide (22-29) mmol/L Anion Gap (5-19) BUN (8-23) mg/dL Creatinine (0.7-1.2) mg/dL GFR Calculation Glucose (65-115) mg/dL Calculated Osmolal ity (285-295) mOsm/k g Lactate (0.5-2.2) mmol/L Calcium (8.5-10.5) mg/dL Total Bilirubin (0.15-1.2) mg/dL AST (0-40) U/L ALT (0-41) U/L Alkaline Phosphata se (40-130) IU/L Creatine Kinase (39-308) U/L Troponin T Baselin e 76 H (0-15) ng/L NT-Pro-B Natriuret Pep (0-450) pg/mL Total Protein (6.6-8.7) g/dL Albumin (3.5-5.2) g/dL Globulin (1.3-4.6) g/dL Urine Color Yellow (Yellow) Urine Appearance Clear (CLEAR) Urine pH 5 (5-7) Ur Specific Gravit y 1.020 (1.005-1.030) Urine Protein 2+ H (Negative) Urine Glucose (UA) Norm (Normal) Urine Ketones Negative (Negative) Urine Blood 3+ H (Negative) Urine Nitrate Negative (Negative) Urine Bilirubin Neg (Negative) Urine Urobilinogen Norm (Negative) mg/dL Ur Leukocyte Nimco ase Negative (Negative) Urine RBC 0-4 H (0-2) /hpf Urine WBC 5-10 H (0-5) /hpf Ur Squamous Epith Cells 0-4 H (0-5) /hpf Amorphous Sediment Not Reportable Urine Bacteria 1+ H (NONE) /hpf Discharge Plan Discharge Patient Disposition: Admitted As Inpatient Admit Provider: Doug Vasquez Clinical Impression: Pneumonia due to 2019 novel coronavirus, Acute alteration in mental status Condition: Stable Coding Level of Care Code ED Annual Giving Manager for Jordin Moreno
[2021-01-19] MEDS: cefTRIAXone 2,000 MG in sodium chloride 0.9% (plus) 50 ML 100 MG IV (17:36)
[2021-01-19 17:49] LABS: Ammonia 20 umol/L (16-60)
[2021-01-19 17:50] LABS: C Reactive Protein 0.5 mg/L (0.0-4.9)
[2021-01-19 17:52] LABS: Amphetamines Screen Urine Negative (Negative); Barbiturates Screen Urine Negative (Negative); Benzodiazepines Screen Urine Negative (Negative); Cocaine Screen Urine Negative (Negative); Opiate Screen Urine Negative (Negative); PCP Screen Urine Negative (Negative); THC Screen Urine Negative (Negative)
[2021-01-19 18:00] LABS: Procalcitonin 0.11 ng/mL (0-0.5); Thyroid Stimulating Hormone 2.06 uIU/mL (0.27-4.20)
[2021-01-19 18:10] LABS: CSF Mononuclear # 0.002 10^3/uL (50-90); Mononuclear WBC CSF % 100 % (50-90); Polynuclear WBC CSF % 0 % (0-10); Red Blood Cell CSF 0 10^3/uL (0-0); White Blood Cell CSF 2 /uL (0-5)
[2021-01-19 18:11] LABS: Ferritin 255 ng/mL (30-400); Iron 33 ug/dL (59-158); Lactate Dehydrogenase 305 U/L (135-225); Percent Saturation 18.3 % (20-50); Total Iron Binding Capacity 180 mcg/dl; Unsaturated Iron Binding 147 ug/dL (112-347)
[2021-01-19] MEDS: vancomycin 1,500 MG/300 ML PIGGYBACK 200 MG IV (18:13)
[2021-01-19 18:18] LABS: Creatine Phosphokinase 361 U/L (39-308)
--- NOTE | 2021-01-19 18:19 | ECG_ITS ---
[facility] Test Date: 2021-01-19 Pat Name: Valente Renae Department: Room: 209 Gender: Male Examination Supervisor: MAGALIS : 1945 Requested By: Jad Todd Order Number: [id number] Reading MD: DEIDRE GROSSMAN Measurements Intervals [place] Rate: 111 P: -13 MA: 184 QRS: -59 QRSD: 113 T: 113 QT: 331 QTc: 450 Interpretive Statements ELECTRONIC VENTRICULAR PACEMAKER ABNORMAL RHYTHM ECG Compared to ECG 01/08/2021 21:26:27 No significant changes Electronically Signed On 01-20-2021 20:31:45 CDT by DEIDRE GROSSMAN [id number] f
[2021-01-19 18:21] LABS: Appearance CSF CLEAR (CLEAR); Color CSF COLORLESS (COLORLESS); Pathology Referral No
[2021-01-19 18:28] LABS: Glucose CSF 47 mg/dL (40-70); Total Protein CSF 49 mg/dL (15-45)
[2021-01-19 18:31] LABS: Erythrocyte Sedimentation Rate 35 mm/hr (0-10)
[2021-01-19] MEDS: haloperidol inj 5 mg/mL INJ 1 mL 1 MG IM (18:50)
[2021-01-19 19:13] LABS: Troponin 5 2HR 79.55 ng/L (0-15); Troponin 5 2HR Delta 3.55 ABS# (0-10)
[2021-01-19 19:46] VITALS: BP 164/86; PULSE 115; RESP 18; O2SAT 96
--- NOTE | 2021-01-19 19:51 | PC.NURSE ---
Dexmedetomidine drip intiated after phone conversation with Dr Lr. He states I can begin at 0.6 mcg/kg/hr and decrease for any bradycardia. I intiated Dexmedetomidine drip at 0.6/mcg/hr at this time. patient has been difficult to control during his stay in ER continuing to attempt to get up out of bed, remove monitoring and resist care continuous during ER. patient is confused and unable to follow instructions.
[2021-01-19] MEDS: piperacillin-tazobactam 3.375 GM in sodium chloride 0.9% (plus) 50 ML IV (20:06)
[2021-01-19 20:47] VITALS: BP 103/72; PULSE 90; RESP 18; O2SAT 98
--- NOTE | 2021-01-19 21:11 | PC.NURSE ---
report to Kalyn HEATON at bedside
[2021-01-19 21:52] LABS: Glucose Point of Care 75 mg/dL (70-110)
[2021-01-19 22:44] VITALS: BP 133/70; PULSE 69; RESP 20; TEMP 36.8; O2SAT 93
[2021-01-19] MEDS: famotidine 20 mg/2 mL INJ IVP (22:48)
[2021-01-19 22:49] VITALS: PULSE 84; RESP 18; O2SAT 95
[2021-01-19] MEDS: dexamethasone 4 mg/mL INJ 6 MG IVP (22:51)
[2021-01-19] MEDS: enoxaparin 120 mg/0.8 mL Syringe 110 MG SUBCUT (23:06)
[2021-01-20] VITALS (10 sets, daily range): BP systolic 127–145; BP diastolic 60–84; PULSE 61–91; RESP 17–21; TEMP 36.6–37.2; O2SAT 92–98; BMI 34.7
--- NOTE | 2021-01-20 00:07 | PC.NURSE ---
pt on precedex. pt asleep at this time and no longer pulling on tubes and lines.
--- NOTE | 2021-01-20 00:09 | PC.NURSE ---
pt on precedex. pt asleep athis is time and no longer pulling on lines and tubes.
--- NOTE | 2021-01-20 01:07 | PC.NURSE ---
Addendum entered by RASTA Wahl 01/20/21 01:16: time this was done: 0050 Original Note: physicin called at this time. order for cpap given.
--- NOTE | 2021-01-20 01:08 | PC.NURSE ---
cpap started by Kristin at this time.
--- NOTE | 2021-01-20 01:12 | PC.PHAR ---
sodium bicarb d/c because pt sedated and confused.
--- NOTE | 2021-01-20 01:13 | PC.NURSE ---
Addendum entered by RASTA Wahl 01/20/21 01:15: time this was done: [id number] Original Note: physician called at this time. informed her pt is on precedex and sleeping also AMS; asked to d/c or hold PO meds. physician stated we can change tessalon pearls to PRN, and discontinue the sodium bicarb because it is a home med.
--- NOTE | 2021-01-20 01:19 | PC.NURSE ---
115 pt pulling at cpap tubing.
[2021-01-20] MEDS: dexmedetomidine 400 MCG in sodium chloride 0.9% (100 ml) 100 ML 16.98 MCG IV (02:43)
--- NOTE | 2021-01-20 06:00 | XRR_ITS ---
PROCEDURE INFORMATION: Exam: XR Chest Exam date and time: 01/20/2021 6:00 AM Age: 75 years old Clinical indication: Shortness of breath; Additional info: Covid TECHNIQUE: Imaging protocol: XR of the chest. Views: 1 view. Total images: 1 COMPARISON: CT chest abd pel wo con 01/19/2021 5:10 PM FINDINGS: Tubes, catheters and devices: A pacemaker device is present, its leads in appropriate position. Lungs: Bilateral patchy airspace densities, favoring pneumonia, possibly atypical pneumonia. Pleural spaces: Unremarkable. No pleural effusion. No pneumothorax. Heart/Mediastinum: Low lung volumes are present, accentuating cardiac size and pulmonary markings. Low lung volumes are present, accentuating cardiac size and pulmonary markings. Bones/joints: Unremarkable. Other findings: Stable postsurgical changes. XR/XR chest 1V portable [id number] IMPRESSION: 1. Low lung volumes are present, accentuating cardiac size and pulmonary markings. 2. Bilateral patchy airspace densities, favoring pneumonia, possibly atypical pneumonia. This appears similar to prior CT scan. 3. Low lung volumes are present, accentuating cardiac size and pulmonary markings.
[2021-01-20 07:04] LABS: INR 1.25 (0.8-1.2)
[2021-01-20 07:26] LABS: Basophils % 0.2 %; Hemoglobin 9.9 g/dL (11.7-16.6); Lymphocytes # 6.1 10^3/uL (0.8-4.8); Lymphocytes % 52.6 %; Mean Corpuscular HGB Conc 30.9 g/dL (30.0-36.0); Mean Corpuscular Hemoglobin 27.7 pg (28.0-34.0); Mean Corpuscular Volume 89.6 fL (80-94); Mean Platelet Volume 11.1 fL (7.4-10.4); Monocytes # 0.3 10^3/uL (0.2-0.9); Monocytes % 2.4 %; Neutrophils # 5.15 10^3/uL (1.8-7.7); Nucleated Red Blood Cells % 0 %; Platelet Count 116 10^3/cmm (130-400); Red Blood Count 3.57 10^6/uL (4.1-5.3); Red Cell Distribution Width 15.5 % (12.1-15.1); White Blood Count 11.7 10^3/uL (4.0-10.0)
[2021-01-20 07:29] LABS: Alanine Aminotransferase 18 U/L (0-41); Albumin Level 3.4 g/dL (3.5-5.2); Alkaline Phosphatase 55 IU/L (40-130); Anion Gap 18.7 (5-19); Aspartate Amino Transferase 25 U/L (0-40); Blood Urea Nitrogen 49 mg/dL (8-23); Calcium 8.7 mg/dL (8.5-10.5); Carbon Dioxide 19 mmol/L (22-29); Chloride 108 mmol/L (98-107); D Dimer 2.73 ug/mIFEU (0-0.59); Globulin 2.5 g/dL (1.3-4.6); Glucose 128 mg/dL (65-115); Magnesium 1.8 mg/dL (1.7-2.3); Osmolality Calculated 305 mOsm/kg (285-295); Phosphorus 3.8 mg/dL (2.5-4.5); Potassium 5.7 mmol/L (3.5-5.1); Sodium 140 mmol/L (136-145); Total Bilirubin 0.6 mg/dL (0.15-1.2); Total Protein 5.9 g/dL (6.6-8.7)
[2021-01-20 07:50] LABS: C Reactive Protein 1.4 mg/L (0.0-4.9); Ferritin 273 ng/mL (30-400); NT Pro B Type Natriuretic Pept 1961 pg/mL (0-450)
[2021-01-20 08:11] LABS: Creatine Phosphokinase 325 U/L (39-308)
[2021-01-20] MEDS: dexmedetomidine 400 MCG in sodium chloride 0.9% (100 ml) 100 ML 19.81 MCG IV ×3 (08:26→21:40)
[2021-01-20 10:05] LABS: Erythrocyte Sedimentation Rate 35 mm/hr (0-10)
[2021-01-20 10:18] LABS: Estmated Average Glucose 197; Hemoglobin A1C 8.5 % (4.0-6.0)
[2021-01-20] MEDS: dextrose 50% syringe 50 mL IVP (11:33)
[2021-01-20] MEDS: zinc gluconate 50 mg Tablet PO (11:34)
[2021-01-20] MEDS: atorvastatin 40 mg Tablet 20 MG PO (11:34)
[2021-01-20] MEDS: tamsulosin 0.4 mg Capsule PO (11:35)
[2021-01-20] MEDS: ascorbic acid 500 mg Tablet 1000 MG PO (11:35)
[2021-01-20] MEDS: isosorbide mononitrate ER 30 mg Tablet 90 MG PO (11:35)
[2021-01-20] MEDS: aspirin 81 mg EC Tablet PO (11:35)
[2021-01-20] MEDS: amlodipine 10 mg Tablet PO (11:35)
[2021-01-20] MEDS: famotidine 20 mg/2 mL INJ IVP ×2 (11:36→20:47)
[2021-01-20] MEDS: finasteride 5 mg Tablet PO (12:18)
[2021-01-20] MEDS: fluticasone nasal spray 16gm Btl 1 SPRAY INTRANASAL ×2 (12:18→19:59)
[2021-01-20] MEDS: insulin regular-human 10 UNIT in SYRINGE 1 EACH IVP (12:39)
--- NOTE | 2021-01-20 15:14 | P.PN_ITS ---
Subjective Subjective: Interval history: Night. Patient has remained calm on Precedex 0.7. On examination today he was a lot calmer. He was able to wake up to physical stimulus. He was alert to himself, where he is, he was able to name his but unaware of the reason for being in the hospital or what year this is. During the day patient became mildly confused for which he required Haldol. Overnight patient has not required any further Haldol. Sitter at bedside. Has remained hemodynamically stable and afebrile. Currently on room air saturating 95%. Vitals/I&O/Wt Last Vital Signs Temp 98.9 F 01/20/21 08:00 Pulse 69 01/20/21 09:29 Resp 17 01/20/21 09:29 BP 133/75 01/20/21 08:00 Pulse Ox 95 01/20/21 09:29 01/20/21 01/20/21 01/20/21 06:59 14:59 22:59 Intake Total 183.573 / 183.573 Balance 183.573 / 183.573 Weight last 48 hrs Weight 112.945 kg Weight 108.862 kg Physical Exam Narrative: EXAM NARRATIVE: General: No acute distress, AO x2, alert to self, where he is, aware of the name of his , mildly sedated on Precedex 0.7 HEENT: PERRLA, pupils bilaterally equal and reactive Chest: Normal vesicular breath sounds, no added sounds, equal good air entry bilaterally CVS: S1-S2 regular, no murmurs, no tachycardia, no gallops, no rubs Abdomen: Soft, nontender, no organomegaly, obese, bowel sounds present Neuro: No focal deficits, no facial deformity, nipples bilaterally equal and reactive, moving all 4 limbs, not tolerant Data : 01/20/21 06:03 01/20/21 06:03 Micro: Microbiology 01/19/21 14:13 Blood Culture - Preliminary Blood NEGATIVE TO DATE 01/19/21 13:30 Blood Culture - Preliminary Blood NEGATIVE TO DATE 01/19/21 17:00 Gram Stain - Final Cerebrospinal Fluid CSF Culture - Preliminary 01/20/21 03:30 MRSA Culture - Final Nose 01/19/21 13:45 Bacterial Antigens - Final Urine Kidney 01/19/21 13:45 Legionella Urinary Antigen - Final Unknown Source A&P Assessment and plan (1) Altered mental status: Status: Acute (2) Pneumonia due to 2019 novel coronavirus: Status: Acute (3) Diabetes: Status: Acute (4) S/P CABG (coronary artery bypass graft): Status: Acute (5) HTN (hypertension): Status: Acute (6) Status cardiac pacemaker: Status: Acute (7) CKD (chronic kidney disease): Status: Acute Additional A&P Information Altered mental status: In setting of recent COVID-19 pneumonia for which she was treated 5 days ago. Could be multifactorial. Unknown source for now. Patient's electrolytes including sodium, potassium within normal limits. BUN is at baseline, creatinine is at baseline. LFTs are within normal limits. CT head without contrast negative for any bleed or acute stroke. CSF study negative for any signs of meningitis. CSF culture pending. CSF showed 2 WBC 100% mononuclear, glucose of 47 and protein mildly elevated to 49 which could be because of severe viral recent infection. Could be secondary to Levaquin. is not sure if patient has had Levaquin before. Could be secondary to recent COVID-19 pneumonia. MRSA screen negative, pro-Darvin negative, CSF study negative for infection, urine Legionella bacterial antigen negative. Blood culture preliminary negative. Ammonia negative. For now stop IV antibiotics. We will continue to monitor for any leukocytosis or fever. Continue with dexamethasone 6 mg IV daily. Patient already received course of remdesivir on his recent admission. Currently on room air. Continue isolation precautions as patient is not 14 days past positive test. Patient can be off isolation on February 11. D-dimer elevated. But patient remains on room air. For now continue patient on anticoagulation at prophylactic dose. Continue to monitor inflammatory markers including ESR, CRP, ferritin, fibrinogen, D-dimer. Precedex for agitation. Haldol 1 mg every 4 hourly as needed. Start patient on oral donepezil 10 mg at bedtime, Cymbalta 30 mg oral daily. Sitter at bedside. CAD/post CABG: Continue home dose of aspirin, statin, Imdur. Check HbA1c, lipid panel. Check echocardiogram. Hypertension: Goal blood pressure less than 140/90 mmHg. Continue home dose of Imdur, losartan. CKD: Creatinine at baseline. Creatinine 2.5-3.3. Worsening as high as 3.7 a week ago. Medical reconciliation done for nephrotoxic drugs. Continue sodium bicarbonate tablets. We will monitor BMP daily. Currently patient does not have any electrolyte abnormalities or acidosis. Type 2 diabetes mellitus: Insulin sliding scale at low-dose protocol. CODE STATUS: Discussed with in detail with over the phone. Patient is DNR/DNI. Mechanical soft diet. Swallow evaluation for further diet modification. Famotidine for PUD prophylaxis Heparin for DVT prophylaxis. Patient's care discussed in detail with patient's over the phone. All the questions were answered. Attestations 2 Medical Necessity Statement*: Patient requires further hospitalization for management of altered mental status in setting of recent COVID-19 pneumonia, CKD, type 2 diabetes mellitus. Time Spent in Patient Care: Greater than 35 minutes (>than 50% of time spent in counselling and/or direct pt care on unit) . Coding Level of Care Code Acute Forestry Aid Technician for Jordin Fwd Diagnoses Altered mental status R41.82 Pneumonia due to 2019 novel coronavirus U07.1; J12.82 Diabetes E11.9 S/P CABG (coronary artery bypass graft) Z95.1 HTN (hypertension) I10 Status cardiac pacemaker Z95.0 CKD (chronic kidney disease) N18.9
[2021-01-20] MEDS: haloperidol inj 5 mg/mL INJ 1 mL 1 MG IM (15:16)
[2021-01-20 19:47] LABS: Anion Gap 22.3 (5-19); Blood Urea Nitrogen 57 mg/dL (8-23); Calcium 8.6 mg/dL (8.5-10.5); Carbon Dioxide 16 mmol/L (22-29); Chloride 104 mmol/L (98-107); Glucose 232 mg/dL (65-115); Osmolality Calculated 307 mOsm/kg (285-295); Potassium 5.3 mmol/L (3.5-5.1); Sodium 137 mmol/L (136-145)
[2021-01-20] MEDS: duloxetine 30 mg Capsule PO (19:59)
[2021-01-20] MEDS: dexamethasone 4 mg/mL INJ 6 MG IVP (20:44)
[2021-01-20] MEDS: donepezil 5 MG Tablet 10 MG PO (20:47)
[2021-01-20] MEDS: heparin 5,000 unit/mL INJ 1 mL 5000 UNIT SUBCUT (23:22)
[2021-01-21] VITALS (13 sets, daily range): BP systolic 108–154; BP diastolic 51–98; PULSE 68–115; RESP 16–22; TEMP 36.5–37; O2SAT 91–97
[2021-01-21] MEDS: dexmedetomidine 400 MCG in sodium chloride 0.9% (100 ml) 100 ML 19.81 MCG IV ×2 (03:25→11:50)
[2021-01-21] MEDS: haloperidol inj 5 mg/mL INJ 1 mL 1 MG IM (04:16)
--- NOTE | 2021-01-21 07:31 | PC.NURSE ---
Patient spent an uneventful shift last pm. Remains on room air. Nil distress noted. V/S stable. Paient remains confused, was reoriented and redirected multiple times. Got Haldol X2 overnight. Precedex 0.7mcg remains infusing. Labs taken this AM. Beckham remains in place. Observation continues.
[2021-01-21 07:32] LABS: D Dimer 1.99 ug/mIFEU (0-0.59)
[2021-01-21 07:40] LABS: C Reactive Protein 1.5 mg/L (0.0-4.9); Creatine Phosphokinase 319 U/L (39-308); Ferritin 320 ng/mL (30-400); NT Pro B Type Natriuretic Pept 2527 pg/mL (0-450)
--- NOTE | 2021-01-21 08:00 | USCV_ITS ---
Valente Renae Age: 75 Gender: M : 1945 Exam Date: 01/21/2021 08:21 Ordering Phys: Doug Vasquez MD Technologist: Exam Location: [facility] [place] Indication: CHF COVID BP: 132 / 84 HR: 84 Rhythm: Sinus Technical Quality: Adequate MEASUREMENTS (Male / Female) Normal Values 2D ECHO LV Diastolic Diameter PLAX 5.7 cm 4.2 - 5.9 / 3.9 - 5.3 cm LV Systolic Diameter PLAX 3.9 cm IVS Diastolic Thickness 0.9 cm 0.6 - 1.0 / 0.6 - 0.9 cm IVS Systolic Thickness 1.3 cm LVPW Diastolic Thickness 1.0 cm 0.6 - 1.0 / 0.6 - 0.9 cm LVPW Systolic Thickness 1.6 cm LVOT Diameter 2.0 cm LV Ejection Fraction 2D Teich 59.2 % LV Ejection Fraction MOD 2C 41.6 % LV Ejection Fraction 2C AL 41.5 % LA Diameter 3.8 cm LA Width 4.7 cm LA Height 6.0 cm RA Width 4.6 cm RA Height 5.6 cm Aorta at Sinotubular Diameter 2.9 cm DOPPLER AV Peak Velocity 130.0 cm/s LVOT Peak Velocity 107.0 cm/s AV Area Cont Eq vti 3.5 cm squared AV Area Cont Eq pk 2.7 cm squared MV Area PHT 5.0 cm squared Mitral E to A Ratio 5.3 MV E' Velocity 73.5 cm/s Mitral E to MV E' Ratio 36.8 Mitral E to LV E' Lateral Ratio 42.2 Mitral E to LV E' Septal Ratio 32.6 TR Peak Velocity 160.7 cm/s TR Peak Gradient 10.3 mmHg TV Peak E Velocity 109.0 cm/s Right Atrial Pressure 3.0 mmHg Pulmonary Artery Systolic Pressu 13.3 mmHg PV Peak Velocity 74.0 cm/s FINDINGS Left Ventricle Normal left ventricular cavity size. Mildly decreased left ventricular systolic function. Global left ventricular hypokinesis. Left ventricular ejection fraction is estimated at 50 %. Right Ventricle The right ventricle is normal in size and function. Right Atrium The right atrium is normal in size. Left Atrium The left atrium is normal in size. Mitral Valve Moderately thickened mitral valve. No mitral valve stenosis. Mild mitral valve regurgitation. Aortic Valve Moderate aortic valve calcification. No aortic valve stenosis. Trace aortic valve regurgitation. Tricuspid Valve Structurally normal tricuspid valve without significant stenosis or regurgitation. Pulmonary artery systolic pressure is normal. Pulmonic Valve Structurally normal pulmonic valve without significant stenosis. There is no pulmonic regurgitation. Pericardium Normal pericardium without effusion. Aorta Normal ascending aorta dimension. CONCLUSIONS 1-Normal left ventricular cavity size. Mildly decreased left ventricular systolic function. Global left ventricular hypokinesis. Left ventricular ejection fraction is estimated at 50 %. 2-Moderate aortic valve calcification. No aortic valve stenosis. Trace aortic valve regurgitation. 3-Moderately thickened mitral valve. No mitral valve stenosis. Mild mitral valve regurgitation. 4-There is no pericardial effusion. 5-Pulmonary artery systolic pressure is within normal limits. 6-Right atrial pressure is around 5 mm of mercury. 7-No significant change since the prior echocardiogram study of 11/01/2014 Ruperto Thomas MD (Electronically Signed) Final Date: 21 January 2021 19:18 S
[2021-01-21] MEDS: finasteride 5 mg Tablet PO (08:51)
[2021-01-21] MEDS: aspirin 81 mg EC Tablet PO (08:52)
[2021-01-21] MEDS: ascorbic acid 500 mg Tablet 1000 MG PO (08:52)
[2021-01-21] MEDS: zinc gluconate 50 mg Tablet PO (08:53)
[2021-01-21] MEDS: tamsulosin 0.4 mg Capsule PO (08:53)
[2021-01-21] MEDS: isosorbide mononitrate ER 30 mg Tablet 90 MG PO (08:54)
[2021-01-21] MEDS: atorvastatin 40 mg Tablet 20 MG PO (08:55)
[2021-01-21] MEDS: duloxetine 30 mg Capsule PO (08:58)
[2021-01-21] MEDS: amlodipine 10 mg Tablet PO (08:58)
[2021-01-21 10:22] LABS: Alanine Aminotransferase 17 U/L (0-41); Albumin Level 3.3 g/dL (3.5-5.2); Alkaline Phosphatase 55 IU/L (40-130); Anion Gap 22.7 (5-19); Aspartate Amino Transferase 23 U/L (0-40); Blood Urea Nitrogen 62 mg/dL (8-23); Calcium 8.7 mg/dL (8.5-10.5); Carbon Dioxide 15 mmol/L (22-29); Chloride 100 mmol/L (98-107); Globulin 2.6 g/dL (1.3-4.6); Glucose 336 mg/dL (65-115); Osmolality Calculated 305 mOsm/kg (285-295); Potassium 5.7 mmol/L (3.5-5.1); Sodium 132 mmol/L (136-145); Total Bilirubin 0.5 mg/dL (0.15-1.2); Total Protein 5.9 g/dL (6.6-8.7)
[2021-01-21] MEDS: famotidine 20 mg/2 mL INJ IVP ×2 (11:51→21:52)
[2021-01-21] MEDS: heparin 5,000 unit/mL INJ 1 mL 5000 UNIT SUBCUT ×2 (11:51→22:11)
[2021-01-21] MEDS: fluticasone nasal spray 16gm Btl 1 SPRAY INTRANASAL ×2 (13:52→17:53)
--- NOTE | 2021-01-21 14:56 | P.PN_ITS ---
Subjective Subjective: Interval history: No acute events overnight. Patient denies any nausea vomiting, headache. Morning examination patient is a lot more awake and coded. He is alert to himself, place, reason for being in the hospital, date of , address but is slow and sluggish. Still on Precedex 0.7 and received 2 doses of Haldol overnight. Has remained hemodynamically stable and afebrile. Still remains on room air. Vitals/I&O/Wt Last Vital Signs Temp 98.4 F 01/21/21 12:00 Pulse 115 H 01/21/21 12:00 Resp 18 01/21/21 12:00 BP 108/51 01/21/21 12:00 Pulse Ox 94 01/21/21 12:00 01/20/21 01/21/21 01/21/21 22:59 06:59 14:59 Intake Total 104.1 / 287.673 104 / 391.673 140.130 / 140.130 Balance 104.1 / 287.673 104 / 391.673 140.130 / 140.130 Weight last 48 hrs Weight 105.233 kg Weight 112.945 kg Physical Exam Narrative: EXAM NARRATIVE: General: No acute distress, AO x2, alert to self, where he is, aware of the name of his , mildly sedated on Precedex 0.7 HEENT: PERRLA, pupils bilaterally equal and reactive Chest: Normal vesicular breath sounds, no added sounds, equal good air entry bilaterally CVS: S1-S2 regular, no murmurs, no tachycardia, no gallops, no rubs Abdomen: Soft, nontender, no organomegaly, obese, bowel sounds present Neuro: No focal deficits, no facial deformity, nipples bilaterally equal and reactive, moving all 4 limbs, not tolerant Urinary Catheter Management^: Beckham: Cath Placed During This Visit: yes Reason for Continuing Indwelling Catheter: Acute Urinary Retention or Obstruction Urinary Catheter Date of Insertion: 01/20/21 Urinary Catheter Time of Insertion: 15:45 Data : 01/20/21 06:03 01/21/21 05:22 Micro: Microbiology 01/19/21 17:00 Gram Stain - Final Cerebrospinal Fluid CSF Culture - Preliminary 01/19/21 13:45 Urine Culture - Preliminary Urine,Clean Catch 01/19/21 14:13 Blood Culture - Preliminary Blood NEGATIVE TO DATE 01/19/21 13:30 Blood Culture - Preliminary Blood NEGATIVE TO DATE 01/20/21 03:30 MRSA Culture - Final Nose A&P Assessment and plan (1) Altered mental status: Status: Acute (2) Pneumonia due to 2019 novel coronavirus: Status: Acute (3) Diabetes: Status: Acute (4) S/P CABG (coronary artery bypass graft): Status: Acute (5) HTN (hypertension): Status: Acute (6) Status cardiac pacemaker: Status: Acute (7) CKD (chronic kidney disease): Status: Acute Additional A&P Information Altered mental status: In setting of recent COVID-19 pneumonia for which he was treated 5 days ago. Could be multifactorial. Unknown source for now. Patient's electrolytes including sodium, potassium within normal limits. BUN is at baseline, creatinine is at baseline. LFTs are within normal limits. CT head without contrast negative for any bleed or acute stroke. CSF study negative for any signs of meningitis. CSF culture pending. CSF showed 2 WBC 100% mononuclear, glucose of 47 and protein mildly elevated to 49 which could be because of severe viral recent infection. Could be secondary to Levaquin. is not sure if patient has had Levaquin before. Could be secondary to recent COVID-19 pneumonia. MRSA screen negative, pro-Darvin negative, CSF study negative for infection, urine Legionella bacterial antigen negative. Blood culture preliminary negative. Ammonia negative. For now stop IV antibiotics. We will continue to monitor for any leukocytosis or fever. Continue with dexamethasone 6 mg IV daily. Patient already received course of remdesivir on his recent admission. Currently on room air. Continue isolation precautions as patient is not 14 days past positive test. Patient can be off isolation on February 11. D-dimer elevated. But patient remains on room air. For now continue patient on anticoagulation at prophylactic dose. Continue to monitor inflammatory markers including ESR, CRP, ferritin, fibrinogen, D-dimer. Precedex for agitation. We will try to wean off today. Haldol 0.5 mg every 4 hourly as needed. Start patient on oral donepezil 10 mg at bedtime, Cymbalta 30 mg oral daily. Sitter at bedside. CAD/post CABG: Continue home dose of aspirin, statin, Imdur. Check HbA1c, lipid panel. Check echocardiogram. Hypertension: Goal blood pressure less than 140/90 mmHg. Continue home dose of Imdur, losartan. CKD: Creatinine at baseline. Creatinine 2.5-3.3. Worsening as high as 3.7 a week ago. Medical reconciliation done for nephrotoxic drugs. Continue sodium bicarbonate tablets. We will monitor BMP daily. Currently patient does not have any electrolyte abnormalities or acidosis. Hyperkalemia: Persistent. Repeat D50 insulin 10 units. Kayexalate 1 unit dose. Repeat BMP in evening. Type 2 diabetes mellitus: Insulin sliding scale at low-dose protocol. CODE STATUS: Discussed with in detail with over the phone. Patient is DNR/DNI. Mechanical soft diet. Swallow evaluation for further diet modification. Famotidine for PUD prophylaxis Heparin for DVT prophylaxis. Patient's care discussed in detail with patient's over the phone. All the questions were answered. Attestations Medical Necessity Statement*: Requires further hospitalization for management of altered mental status needing repeated doses of Haldol and Precedex, recent COVID-19 pneumonia Time Spent in Patient Care: Greater than 35 minutes (>than 50% of time spent in counselling and/or direct pt care on unit) . Coding Level of Care Code Acute Associate Sales Representative for g Fwd Diagnoses Altered mental status R41.82 Pneumonia due to 2019 novel coronavirus U07.1; J12.82 Diabetes E11.9 S/P CABG (coronary artery bypass graft) Z95.1 HTN (hypertension) I10 Status cardiac pacemaker Z95.0 CKD (chronic kidney disease) N18.9
[2021-01-21 15:23] LABS: Glucose Point of Care 129 mg/dL (70-110)
[2021-01-21 15:23] LABS: Glucose Point of Care 250 mg/dL (70-110)
[2021-01-21 15:23] LABS: Glucose Point of Care 244 mg/dL (70-110)
[2021-01-21 15:23] LABS: Glucose Point of Care 148 mg/dL (70-110)
[2021-01-21] MEDS: dextrose 50% syringe 50 mL IVP (15:59)
[2021-01-21] MEDS: insulin regular-human 10 UNIT in SYRINGE 1 EACH IVP (16:00)
[2021-01-21] MEDS: sodium polystyrene sulfonate 15 gm/60 mL Btl PO (16:01)
[2021-01-21 16:26] LABS: Glucose Point of Care 421 mg/dL (70-110)
[2021-01-21] MEDS: acetaminophen 325 mg Tablet 650 MG PO (17:54)
[2021-01-21] MEDS: dexmedetomidine 400 MCG in sodium chloride 0.9% (100 ml) 100 ML 14.15 MCG IV (19:35)
[2021-01-21 20:00] LABS: Anion Gap 18.8 (5-19); Blood Urea Nitrogen 60 mg/dL (8-23); Calcium 8.9 mg/dL (8.5-10.5); Carbon Dioxide 19 mmol/L (22-29); Chloride 109 mmol/L (98-107); Glucose 122 mg/dL (65-115); Osmolality Calculated 312 mOsm/kg (285-295); Potassium 4.8 mmol/L (3.5-5.1); Sodium 142 mmol/L (136-145)
[2021-01-21] MEDS: haloperidol inj 5 mg/mL INJ 1 mL IM (21:14)
[2021-01-21] MEDS: dexamethasone 4 mg/mL INJ 6 MG IVP (21:52)
[2021-01-21] MEDS: donepezil 5 MG Tablet 10 MG PO (22:12)
[2021-01-22] VITALS (8 sets, daily range): BP systolic 147–162; BP diastolic 73–83; PULSE 80–121; RESP 16–28; TEMP 36.4–36.8; O2SAT 94–97
[2021-01-22] MEDS: dexmedetomidine 400 MCG in sodium chloride 0.9% (100 ml) 100 ML 12.5 MCG IV (04:08)
--- NOTE | 2021-01-22 06:00 | XRR_ITS ---
PROCEDURE INFORMATION: Exam: XR Chest Exam date and time: 01/22/2021 6:00 AM Age: 75 years old Clinical indication: Dyspnea; Additional info: Covid TECHNIQUE: Imaging protocol: XR of the chest. Views: 1 view. COMPARISON: CR (CHEST, ) 01/20/2021 6:52 AM FINDINGS: Tubes, catheters and devices: A cardiac pacing device is again seen projecting over the left chest. Lungs: Low lung volumes. Persistent bilateral airspace opacities. No large pleural effusion or pneumothorax. Pleural spaces: See Lungs finding. Heart/Mediastinum: Stable cardiomediastinal silhouette. Bones/joints: Median sternotomy changes seen. No acute osseous injury identified. XR/XR chest 1V portable [id number] IMPRESSION: Persistent bilateral airspace opacities. Pneumonia or mild pulmonary edema can have this appearance.
[2021-01-22 06:18] LABS: Hematocrit 29.7 % (42.0-52.0); Hemoglobin 9.1 g/dL (11.7-16.6); Lymphocytes # 2.2 10^3/uL (0.8-4.8); Lymphocytes % 26.4 %; Mean Corpuscular HGB Conc 30.6 g/dL (30.0-36.0); Mean Corpuscular Hemoglobin 27.3 pg (28.0-34.0); Mean Corpuscular Volume 89.2 fL (80-94); Monocytes # 0.2 10^3/uL (0.2-0.9); Monocytes % 2.1 %; Neutrophils # 5.96 10^3/uL (1.8-7.7); Neutrophils % 70.9 %; Nucleated Red Blood Cells % 0 %; Platelet Count 114 10^3/cmm (130-400); Red Blood Count 3.33 10^6/uL (4.1-5.3); White Blood Count 8.4 10^3/uL (4.0-10.0)
[2021-01-22 06:46] LABS: Alanine Aminotransferase 17 U/L (0-41); Albumin Level 3.2 g/dL (3.5-5.2); Alkaline Phosphatase 54 IU/L (40-130); Anion Gap 18.6 (5-19); Aspartate Amino Transferase 20 U/L (0-40); Blood Urea Nitrogen 64 mg/dL (8-23); Calcium 8.5 mg/dL (8.5-10.5); Carbon Dioxide 18 mmol/L (22-29); Chloride 108 mmol/L (98-107); Globulin 2.6 g/dL (1.3-4.6); Glucose 292 mg/dL (65-115); Osmolality Calculated 317 mOsm/kg (285-295); Potassium 5.6 mmol/L (3.5-5.1); Sodium 139 mmol/L (136-145); Total Bilirubin 0.5 mg/dL (0.15-1.2); Total Protein 5.8 g/dL (6.6-8.7)
[2021-01-22 06:52] LABS: D Dimer 1.38 ug/mIFEU (0-0.59)
[2021-01-22 07:04] LABS: C Reactive Protein 2.7 mg/L (0.0-4.9); Creatine Phosphokinase 211 U/L (39-308); Ferritin 305 ng/mL (30-400); NT Pro B Type Natriuretic Pept 2633 pg/mL (0-450)
[2021-01-22 07:26] LABS: Erythrocyte Sedimentation Rate 39 mm/hr (0-10)
[2021-01-22 09:29] LABS: Glucose Point of Care 330 mg/dL (70-110)
[2021-01-22 09:29] LABS: Glucose Point of Care 158 mg/dL (70-110)
[2021-01-22 09:29] LABS: Glucose Point of Care 298 mg/dL (70-110)
[2021-01-22 09:29] LABS: Glucose Point of Care 227 mg/dL (70-110)
[2021-01-22] MEDS: aspirin 81 mg EC Tablet PO (09:41)
[2021-01-22] MEDS: zinc gluconate 50 mg Tablet PO (09:41)
[2021-01-22] MEDS: finasteride 5 mg Tablet PO (09:41)
[2021-01-22] MEDS: isosorbide mononitrate ER 30 mg Tablet 90 MG PO (09:41)
[2021-01-22] MEDS: duloxetine 30 mg Capsule PO (09:42)
[2021-01-22] MEDS: ascorbic acid 500 mg Tablet 1000 MG PO (09:42)
[2021-01-22] MEDS: amlodipine 10 mg Tablet PO (09:42)
[2021-01-22] MEDS: tamsulosin 0.4 mg Capsule PO (09:42)
[2021-01-22] MEDS: fluticasone nasal spray 16gm Btl 1 SPRAY INTRANASAL ×2 (09:43→17:23)
[2021-01-22] MEDS: atorvastatin 40 mg Tablet 20 MG PO (09:43)
--- NOTE | 2021-01-22 10:28 | PC.SOCIAL ---
IMM updated IMM updated with patient's . Verbalized an understanding. Initialed, dated, timed, and placed in chart.
--- NOTE | 2021-01-22 11:38 | PM.PN ---
Subjective Subjective: Interval history: Valente reports he is doing okay. No shortness of breath. Nursing relates he has been calm. He is still on Precedex. Medications: Reviewed: Yes Vitals/I&O/Wt Last Vital Signs Temp 97.5 F L 01/22/21 08:00 Pulse 98 01/22/21 10:18 Resp 20 H 01/22/21 10:18 BP 150/78 01/22/21 08:00 Pulse Ox 94 01/22/21 10:18 01/21/21 01/22/21 01/22/21 22:59 06:59 14:59 Intake Total 67.970 / 501.462 6744 / 1272.100 Output Total 700 / 700 Balance 67.970 / 208.100 364 / 572.100 Weight last 48 hrs Weight 104.78 kg Weight 105.233 kg Physical Exam Narrative: EXAM NARRATIVE: General exam no apparent distress Neck no lymphadenopathy Cardiovascular regular rate and rhythm Lungs clear Abdomen soft, positive bowel sounds Extremities no cyanosis clubbing or edema Urinary Catheter Management^: Beckham: Cath Placed During This Visit: yes Reason for Continuing Indwelling Catheter: Other Urinary Catheter Date of Insertion: 01/20/21 Urinary Catheter Time of Insertion: 15:45 Data : 01/22/21 05:09 01/22/21 05:09 Micro: Microbiology 01/19/21 17:00 Gram Stain - Final Cerebrospinal Fluid CSF Culture - Final 01/19/21 13:45 Urine Culture - Final Urine,Clean Catch A&P Assessment and plan (1) Altered mental status: Multifactorial. Consistent with encephalopathy. May be secondary to Covid, versus fluoroquinolone. CT negative for acute event Spinal fluid negative for meningitis. MRSA PCR negative, procalcitonin negative, blood cultures negative, ammonia negative Antibiotics were stopped He is significantly improved. Wean off Precedex today. Status: Acute (2) Pneumonia due to 2019 novel coronavirus: Not requiring oxygen Status: Acute (3) Diabetes: Continue sliding scale insulin Status: Acute (4) S/P CABG (coronary artery bypass graft): Continue aspirin, statin, nitrate Status: Acute (5) HTN (hypertension): Status: Acute (6) Status cardiac pacemaker: Status: Acute (7) CKD (chronic kidney disease): Acute kidney injury superimposed on chronic kidney disease Potassium elevated. Give Kayexalate today Recheck potassium in the afternoon Change to low potassium diet Reinitiate his sodium bicarb. CK was checked and not significantly elevated. Avoid renal toxic medication Status: Acute Additional A&P Information Allow natural Lovenox for DVT prophylaxis Attestations Medical Necessity Statement*: Needs continued hospitalization secondary to encephalopathy, hyperkalemia, acute on chronic renal insufficiency. Coding Level of Care Code Acute Flame Annealing Machine Setter for Chg Fwd Diagnoses Altered mental status R41.82 Pneumonia due to 2019 novel coronavirus U07.1; J12.82 Diabetes E11.9 S/P CABG (coronary artery bypass graft) Z95.1 HTN (hypertension) I10 Status cardiac pacemaker Z95.0 CKD (chronic kidney disease) N18.9
[2021-01-22] MEDS: heparin 5,000 unit/mL INJ 1 mL 5000 UNIT SUBCUT ×2 (12:11→22:20)
[2021-01-22] MEDS: sodium polystyrene sulfonate 15 gm/60 mL Btl 30 GM PO (12:11)
[2021-01-22 12:28] LABS: Glucose Point of Care 385 mg/dL (70-110)
[2021-01-22 16:42] LABS: Potassium 4.5 mmol/L (3.5-5.1)
[2021-01-22] MEDS: sodium bicarbonate 650 mg Tablet PO ×2 (17:23→22:21)
[2021-01-22] MEDS: famotidine 20 mg Tablet PO (17:23)
[2021-01-22] MEDS: dexamethasone 4 mg/mL INJ 6 MG IVP (22:21)
[2021-01-22] MEDS: ALPRAZolam 0.5 mg Tablet PO (23:08)
[2021-01-23] VITALS (9 sets, daily range): BP systolic 116–181; BP diastolic 65–94; PULSE 65–111; RESP 17–24; TEMP 36.6–37.6; O2SAT 91–98
[2021-01-23 07:18] LABS: Basophils % 0.2 %; Hematocrit 32.3 % (42.0-52.0); Hemoglobin 9.7 g/dL (11.7-16.6); Mean Corpuscular Hemoglobin 27.4 pg (28.0-34.0); Mean Corpuscular Volume 91.2 fL (80-94); Mean Platelet Volume 11.1 fL (7.4-10.4); Monocytes # 0.1 10^3/uL (0.2-0.9); Neutrophils # 3.91 10^3/uL (1.8-7.7); Neutrophils % 64.5 %; Nucleated Red Blood Cells % 0 %; Platelet Count 111 10^3/cmm (130-400); Red Blood Count 3.54 10^6/uL (4.1-5.3); White Blood Count 6.1 10^3/uL (4.0-10.0)
[2021-01-23 07:41] LABS: Alanine Aminotransferase 19 U/L (0-41); Albumin Level 3.2 g/dL (3.5-5.2); Alkaline Phosphatase 59 IU/L (40-130); Anion Gap 17.1 (5-19); Aspartate Amino Transferase 21 U/L (0-40); Blood Urea Nitrogen 58 mg/dL (8-23); Calcium 8.5 mg/dL (8.5-10.5); Carbon Dioxide 20 mmol/L (22-29); Chloride 103 mmol/L (98-107); Globulin 2.6 g/dL (1.3-4.6); Glucose 253 mg/dL (65-115); Osmolality Calculated 305 mOsm/kg (285-295); Potassium 5.1 mmol/L (3.5-5.1); Sodium 135 mmol/L (136-145); Total Bilirubin 0.6 mg/dL (0.15-1.2); Total Protein 5.8 g/dL (6.6-8.7)
[2021-01-23 08:00] LABS: Glucose Point of Care 194 mg/dL (70-110)
[2021-01-23 08:00] LABS: Glucose Point of Care 286 mg/dL (70-110)
[2021-01-23 08:00] LABS: Glucose Point of Care 316 mg/dL (70-110)
[2021-01-23] MEDS: amlodipine 10 mg Tablet PO (08:15)
[2021-01-23] MEDS: isosorbide mononitrate ER 30 mg Tablet 90 MG PO (08:15)
[2021-01-23] MEDS: tamsulosin 0.4 mg Capsule PO (08:16)
[2021-01-23] MEDS: finasteride 5 mg Tablet PO (08:16)
[2021-01-23] MEDS: atorvastatin 40 mg Tablet 20 MG PO (08:17)
[2021-01-23] MEDS: aspirin 81 mg EC Tablet PO (08:17)
[2021-01-23] MEDS: sodium bicarbonate 650 mg Tablet PO ×3 (08:17→20:22)
[2021-01-23] MEDS: duloxetine 30 mg Capsule PO (08:17)
[2021-01-23] MEDS: famotidine 20 mg Tablet PO ×2 (08:17→18:08)
--- NOTE | 2021-01-23 09:52 | PC.CHAP ---
Pastoral Care Encounter/Spiritual Assessment Type of Contact [] Declined technical sales support specialist visit [] Patient/Family/Request visit [] Outpatient visit [] Follow-up visit [] Physician referral [] Code/Alert [x] Routine visit [] Staff referral [] Actively dying [] Patient sleeping [] Family support [] [] Out of room [] Palliative care [] [] Receiving care in room [] Pre-surgical visit [] Trauma [] Long length of stay [] ICU visit [x] Other: covid Relational/Emotional Strength [] Patient feels connected with others/family/visitors/staff [] Distress [] Loneliness/isolation [] Abandonment Spirituality of Patient [] Person of Trinh [] Attends Mormonism of their Trinh [] Believes in Prayer [] Reads Bible or Adventist materials [] There are Spiritual issues to be addressed Research Investigator Interventions [x] Prayer [] Active listening [] Non-anxious presence [] Spiritual/emotional support [] Crisis/trauma care [] Spiritual counseling [] Bereavement support [] Provided bereavement packet [] Provided Bible/devotional materials [] Provided toy/stuffed animal, coloring book to patient or family member [] Provided Communion [] Anointing/[place] [] Salvation [x] Completed spiritual assessment [] Other: Impact on Illness or Injury [] Angry [] Fearful [] Anxious [] Often cries [] Exhaustion [] Unable to work [] Unable to attend christian [] Unable to walk/stand [] Unable to read [] Unable to drive [] Unable to eat/drink [] Unable to sleep [] Unable to be with family [] Patient intubated [] Other: Summary Time spent with patient
--- NOTE | 2021-01-23 12:30 | P.PN_ITS ---
Subjective Subjective: Interval history: Valente was able to visit with me fairly well this morning. He is very weak. Nursing relates he still has some confusion but has not been agitated. Medications: Reviewed: Yes Vitals/I&O/Wt Last Vital Signs Temp 98.2 F 01/23/21 08:00 Pulse 82 01/23/21 08:00 Resp 18 01/23/21 08:00 BP 136/72 01/23/21 08:00 Pulse Ox 98 01/23/21 08:00 01/22/21 01/23/21 01/23/21 22:59 06:59 14:59 Intake Total 300 / 529.000 360 / 360 Output Total 500 / 500 Balance 300 / 529.000 -500 / 29.000 360 / 360 Weight last 48 hrs Weight 104.734 kg Weight 104.78 kg Physical Exam Narrative: EXAM NARRATIVE: General exam no apparent distress Neck no lymphadenopathy Cardiovascular regular rate and rhythm Lungs clear Abdomen soft, positive bowel sounds Extremities no cyanosis clubbing or edema Urinary Catheter Management^: Beckham: Cath Placed During This Visit: yes Reason for Continuing Indwelling Catheter: Other Urinary Catheter Date of Insertion: 01/20/21 Urinary Catheter Time of Insertion: 15:45 Data : 01/23/21 06:21 01/23/21 06:21 Micro: Microbiology 01/19/21 17:00 Gram Stain - Final Cerebrospinal Fluid CSF Culture - Final 01/19/21 13:45 Urine Culture - Final Urine,Clean Catch A&P Assessment and plan (1) Altered mental status: Multifactorial. Consistent with encephalopathy. May be secondary to Covid, versus fluoroquinolone. CT negative for acute event Spinal fluid negative for meningitis. MRSA PCR negative, procalcitonin negative, blood cultures negative, ammonia negative Antibiotics were stopped Doing okay off Precedex without agitation but still some confusion Status: Acute (2) Pneumonia due to 2019 novel coronavirus: Not requiring oxygen Status: Acute (3) Diabetes: Continue sliding scale insulin Status: Acute (4) S/P CABG (coronary artery bypass graft): Continue aspirin, statin, nitrate Status: Acute (5) HTN (hypertension): Status: Acute (6) Status cardiac pacemaker: Status: Acute (7) CKD (chronic kidney disease): Acute kidney injury superimposed on chronic kidney disease Potassium elevated. This is improved today Renal function appears somewhat improved Changed to low potassium diet Reinitiate his sodium bicarb. CK was checked and not significantly elevated. Avoid renal toxic medication Status: Acute Additional A&P Information Allow natural Lovenox for DVT prophylaxis He has significant weakness, and is a great fall risk. He would benefit from skilled placement. is somewhat resistant to this. I have set up a meeting to talk with her and her children by phone this afternoon. Attestations Medical Necessity Statement*: Needs continued hospitalization for acute on chronic kidney insufficiency, severe weakness with need for likely custodial placement. Coding Level of Care Code Acute Under Ground Miner for [place] Fwd Diagnoses Altered mental status R41.82 Pneumonia due to 2019 novel coronavirus U07.1; J12.82 Diabetes E11.9 S/P CABG (coronary artery bypass graft) Z95.1 HTN (hypertension) I10 Status cardiac pacemaker Z95.0 CKD (chronic kidney disease) N18.9
[2021-01-23] MEDS: heparin 5,000 unit/mL INJ 1 mL 5000 UNIT SUBCUT ×2 (12:53→23:46)
[2021-01-23 13:47] LABS: Glucose Point of Care 333 mg/dL (70-110)
[2021-01-23 17:30] LABS: Glucose Point of Care 211 mg/dL (70-110)
[2021-01-23] MEDS: fluticasone nasal spray 16gm Btl 1 SPRAY INTRANASAL (18:07)
[2021-01-23 20:24] LABS: Glucose Point of Care 189 mg/dL (70-110)
[2021-01-24] VITALS: BP 153/80; PULSE 107; RESP 18; TEMP 36.6; O2SAT 90
[2021-01-24] MEDS: LORazepam 0.5 mg Tablet PO (00:16)
[2021-01-24 03:59] VITALS: BP 163/88; PULSE 110; RESP 22; TEMP 36.8; O2SAT 91
[2021-01-24 06:20] LABS: Glucose Point of Care 247 mg/dL (70-110)
--- NOTE | 2021-01-24 06:41 | PC.NURSE ---
Patient was anxious and restless all night complaining that he could not get comfortable. Physician ordered Ativan 0.5 MG PO ONCE. Patient is having difficulty urinating on his own. Patient attempted several times to urinate in the urinal, but has not been successful. Patient was incontinent with wetting the bed a couple of times. Patients oxygen saturations have been slowing decreasing down to 90% on RA. Patient requested to be placed on Bipap by RT, to which patient asked for the mask to be removed shortly after.
[2021-01-24 08:00] VITALS: BP 145/79; PULSE 94; RESP 16; TEMP 36.3; O2SAT 90
[2021-01-24] MEDS: aspirin 81 mg EC Tablet PO (08:02)
[2021-01-24] MEDS: amlodipine 10 mg Tablet PO (08:02)
[2021-01-24] MEDS: atorvastatin 40 mg Tablet 20 MG PO (08:02)
[2021-01-24] MEDS: duloxetine 30 mg Capsule PO (08:03)
[2021-01-24] MEDS: finasteride 5 mg Tablet PO (08:03)
[2021-01-24] MEDS: isosorbide mononitrate ER 30 mg Tablet 90 MG PO (08:03)
[2021-01-24] MEDS: famotidine 20 mg Tablet PO (08:03)
[2021-01-24] MEDS: sodium bicarbonate 650 mg Tablet PO (08:04)
[2021-01-24] MEDS: tamsulosin 0.4 mg Capsule PO (08:04)
[2021-01-24 08:15] LABS: Anion Gap 16.4 (5-19); Blood Urea Nitrogen 55 mg/dL (8-23); Calcium 8.7 mg/dL (8.5-10.5); Carbon Dioxide 22 mmol/L (22-29); Chloride 105 mmol/L (98-107); Glucose 209 mg/dL (65-115); Osmolality Calculated 309 mOsm/kg (285-295); Potassium 4.4 mmol/L (3.5-5.1); Sodium 139 mmol/L (136-145)
--- NOTE | 2021-01-24 10:03 | PC.CHAP ---
Pastoral Care Encounter/Spiritual Assessment Type of Contact [] Declined dietitian therapeutic visit [] Patient/Family/Request visit [] Outpatient visit [] Follow-up visit [] Physician referral [] Code/Alert [x] Routine visit [] Staff referral [] Actively dying [] Patient sleeping [] Family support [] [] Out of room [] Palliative care [] [] Receiving care in room [] Pre-surgical visit [] Trauma [] Long length of stay [] ICU visit [x] Other:covid Relational/Emotional Strength [] Patient feels connected with others/family/visitors/staff [] Distress [] Loneliness/isolation [] Abandonment Spirituality of Patient [] Person of Trinh [] Attends Latter Day of their Trin[place] [] Believes in Prayer [] Reads Bible or Gnosticism materials [] There are Spiritual issues to be addressed Projector Booth Operator Interventions [x] Prayer [] Active listening [] Non-anxious presence [] Spiritual/emotional support [] Crisis/trauma care [] Spiritual counseling [] Bereavement support [] Provided bereavement packet [] Provided Bible/devotional materials [] Provided toy/stuffed animal, coloring book to patient or family member [] Provided Communion [] Anointing/[place] [] Salvation [x] Completed spiritual assessment [] Other: Impact on Illness or Injury [] Angry [] Fearful [] Anxious [] Often cries [] Exhaustion [] Unable to work [] Unable to attend hinduism [] Unable to walk/stand [] Unable to read [] Unable to drive [] Unable to eat/drink [] Unable to sleep [] Unable to be with family [] Patient intubated [] Other: Summary Time spent with patient
--- NOTE | 2021-01-24 10:21 | PC.SOCIAL ---
IMM updated IMM updated with patient's . Verbalized an understanding. Initialed, dated, timed, and placed in chart.
[2021-01-24 11:15] VITALS: PULSE 110; RESP 19; O2SAT 94
[2021-01-24 12:08] LABS: Glucose Point of Care 221 mg/dL (70-110)
--- NOTE | 2021-01-24 12:17 | P.DS_ITS ---
Discharge Providers Date of Admission: 01/19/21 15:00 Date of Discharge: January 24, 2021 Attending Provider at Admission: Doug Vasquez MD Attending Provider at Discharge: Stephen Golden MD Primary Care Provider: Alejandro Macias MD Diagnoses at Discharge Discharge Diagnosis (1) Altered mental status: Status: Acute (2) Pneumonia due to 2019 novel coronavirus: Status: Acute (3) Diabetes: Status: Acute (4) S/P CABG (coronary artery bypass graft): Status: Acute (5) HTN (hypertension): Status: Acute (6) Status cardiac pacemaker: Status: Acute (7) CKD (chronic kidney disease): Status: Acute Reason for Visit Reason for Visit: AMS COVID+ Hospital Course Hospital Course Valente is a 75-year-old white male who presented to the hospital with change in mental status. He had had a recent hospital stay for Covid. He was evaluated in the emergency department and CT scan demonstrated no acute changes. Renal function was at baseline. There was some concern this could be due to fluoroquinolones, or possibly due to Covid. Spinal fluid was also checked and negative for any infection. While in the hospital his antibiotics were stopped. Renal function did worsen somewhat, and then recovered. Post void residual after Beckham was removed did not demonstrate significant retention of urine. By January 24 he was better. He was not agitated. He was requiring no medications for behavior or agitation and had not for several days. I had been in discussion with his , and daughters regarding potential placement to skilled care to serve as a transition home but they wish to care for him at home realizing that some confusion and retention of data was still lacking. He was able to be discharged on January 24 in good condition. He should follow-up with his primary care provider and have repeat laboratory in approximately 1 week. He has had multiple images taken of a right renal cyst, which she should follow- up with his legal operations manager. Physical Exam Narrative: EXAM NARRATIVE: General exam no apparent distress Neck is supple no lymphadenopathy or thyromegaly Cardiovascular regular in rhythm without murmur Lungs clear Abdomen is soft with positive bowel sounds Extremities no cyanosis clubbing or edema Urinary Catheter Management^: Beckham: Cath Placed During This Visit: yes, but has since been removed by the nurse Reason for Continuing Indwelling Catheter: Decision to DC Catheter Urinary Catheter Date of Insertion: 01/20/21 Urinary Catheter Time of Insertion: 15:45 Date Urinary Catheter Removed: 01/23/21 Time Urinary Catheter Discontinued: 01:20 Discharge Data Data Completed and Pending: Completed Studies During Hospitalization Category Date Time Status CT chest abd pel wo con Urgent Cat Scan 01/19/21 15:[address] head wo con* 7 0450 Urgent Cat Scan 01/19/21 12:13 Completed XR chest 1V hamzah ble [id number] Q48H Exams 01/20/21 06:00 Completed XR chest 1V hamzah ble [id number] Q48H Exams 01/22/21 06:00 Completed XR chest 1V hamzah ble [id number] Urgent Exams 01/19/21 12:13 Completed CV. echo complete * [id number] Routine Ultrasound 01/21/21 08:00 Completed Pending at discharge Category Date Time Status Blood Culture Sta t Lab 01/19/21 14:13 Results Miscellaneous Kaylynn t Routine Lab 01/19/21 17:00 Received Miscellaneous Kaylynn t Routine Lab 01/19/21 17:00 Received Sputum Culture an d Gram Stain Stat Lab 01/19/21 15:48 Uncollected Labs from last 24 hours 01/24/21 01/24/21 01/24/21 11:51 06:43 06:06 Sodium 139 Potassium 4.4 Chloride 105 Carbon Dioxide 22 Anion Gap 16.4 BUN 55 H Creatinine 2.8 H GFR Calculation Not Reportable Glucose 209 H POC Glucose 221 H 247 H Calculated Osmolal ity 309 H Calcium 8.7 01/23/21 01/23/21 01/23/21 20:16 17:15 10:45 Sodium Potassium Chloride Carbon Dioxide Anion Gap BUN Creatinine GFR Calculation Glucose POC Glucose 189 H 211 H 333 H Calculated Osmolal ity Calcium Vitals: Last Vital Signs Temp 97.4 F L 01/24/21 08:00 Pulse 110 H 01/24/21 11:15 Resp 19 H 01/24/21 11:15 BP 145/79 01/24/21 08:00 Pulse Ox 94 01/24/21 11:15 Discharge Plan Discharge Patient Disposition: Home Health Service Condition: Stable Prescriptions: Continued nitroglycerin [Nitrostat] 0.4 mg tablet, sublingual 0.4 mg SUBLINGUAL Q5M PRN (Reason: Chest Pain) RF: 0 amlodipine 10 mg tablet 10 mg PO DAILY RF: 0 aspirin [Aspir-81] 81 mg tablet,delayed release (DR/EC) 81 mg PO DAILY RF: 0 cholecalciferol (vitamin D3) 25 mcg (1,000 unit) capsule 50 mcg PO DAILY RF: 0 glucosamine-chondroitin [Osteo Bi-Flex] 250-200 mg tablet 1 tab PO DAILY RF: 0 acetaminophen 325 mg tablet 325 mg PO QID PRN (Reason: Pain) RF: 0 finasteride 5 mg tablet 5 mg PO DAILY RF: 0 atorvastatin 10 mg tablet 10 mg PO DAILY RF: 0 isosorbide mononitrate 30 mg tablet extended release 24 hr 30 mg PO DAILY Qty: 30 RF: 3 isosorbide mononitrate 60 mg tablet extended release 24 hr 60 mg PO DAILY Qty: 30 RF: 3 sodium bicarbonate 650 mg tablet 650 mg PO TID Qty: 90 RF: 0 tamsulosin 0.4 mg capsule 0.4 mg PO DAILY RF: 0 docusate sodium [Colace] 100 mg Capsule 100 mg PO BID PRN (Reason: Constipation) RF: 0 fluticasone propionate [Flonase Allergy Relief] 50 mcg/actuation [place],[employer] pension 1 spray INTRANASAL BID RF: 0 insulin aspart U-100 [Novolog Flexpen U-100 Insulin] 100 unit/mL (3 mL) Insulin Pen See Rx Instructions .ROUTE .COMPLEX RF: 0 Lantus Solostar U-100 Insulin 100 unit/mL (3 mL) insulin pen See Rx Instructions .ROUTE .COMPLEX MDD see pharmacy comment RF: 0 Discontinued loratadine 10 mg tablet 10 mg PO DAILY RF: 0 levofloxacin 250 mg tablet 250 mg PO DAILY Qty: 5 RF: 0 Xanax 0.25 mg Tablet 0.25 mg PO DAILY PRN (Reason: Anxiety) RF: 0 losartan 100 mg Tablet 100 mg PO DAILY RF: 0 Discharge Orders: Discharge Order (Routine); Ordered 01/24/21 Ordered By: Stephen Golden Referrals: Alejandro Macias MD [Primary Care Provider] - 4-7 days (BMP on follow-up) Discharge Diet: Diabetic Discharge Activity: Increase activity as tolerated Patient Instructions: Viral Pneumonia (DC), Opioid Safety Activity Restrictions/Additional Instructions: Home health on discharge Low potassium diet Discharge Attestations Time Spent in Discharge Care*: greater than 30 min Quality Metrics Clinical Quality Measures During this hospital stay, did patient experience: None Coding Level of Care Code Acute Chg FW DC note Diagnoses Altered mental status R41.82 Pneumonia due to 2019 novel coronavirus U07.1; J12.82 Diabetes E11.9 S/P CABG (coronary artery bypass graft) Z95.1 HTN (hypertension) I10 Status cardiac pacemaker Z95.0 CKD (chronic kidney disease) N18.9
[2021-01-24] MEDS: heparin 5,000 unit/mL INJ 1 mL 5000 UNIT SUBCUT (12:29)
--- NOTE | 2021-01-29 15:35 | PC.SOCIAL ---
spoke with spouse, May. Patient is currently in [facility]. Patient did have hospital bed delivered to home for when he is discharged from [facility]
== END 2021-01-24 13:15 | disposition home health service (06) | DRG 177 ==
LOC: ER 15:00 → MS 2A 15:40
PROVIDERS: Admitting Provider Student in an Organized Health Care Education/Training Program; Emergency Provider Family Medicine; PCP Family Medicine; Visit Provider Internal Medicine
DX: U07.1 COVID-19 (principal); J12.82 Pneumonia due to coronavirus disease 2019; N13.8 Other obstructive and reflux uropathy; C91.10 Chronic lymphocytic leukemia of B-cell type not having achieved remission; N17.9 Acute kidney failure, unspecified; G93.49 Other encephalopathy; E11.22 Type 2 diabetes mellitus with diabetic chronic kidney disease; I12.9 Hypertensive chronic kidney disease with stage 1 through stage 4 chronic kidney disease, or unspecified chronic kidney disease; N18.30 Chronic kidney disease, stage 3 unspecified; I25.10 Atherosclerotic heart disease of native coronary artery without angina pectoris; Z95.1 Presence of aortocoronary bypass graft; Z95.0 Presence of cardiac pacemaker; N40.1 Benign prostatic hyperplasia with lower urinary tract symptoms; E78.5 Hyperlipidemia, unspecified; E87.5 Hyperkalemia; Z66 Do not resuscitate; Z79.82 Long term (current) use of aspirin; Z79.4 Long term (current) use of insulin
CPT/HCPCS: 36415; 36416; 51702; 70450; 71045; 71250; 74176; 80048; 80053; 80306; 81001; 82140; 82550; 82728; 82945; 82962; 83036; 83540; 83550; 83605; 83615; 83735; 83880; 84100; 84132; 84145; 84157; 84443; 84484; 85025; 85378; 85610; 85651; 86140; 86403; 87040; 87070; 87075; 87086; 87205; 87449; 87641; 89050; 92523; 92526; 92610; 93005; 93306; 94640; 94660; 94762; 96365; 96367; 96372; 96375; 97110; 97116; 97161; 97530; 99285; J0696; J1100; J1630; J1644; J1650; J1815; J2060; J2250; J2543; J3370; J3490; J7030

== ENCOUNTER 2021-01-26 10:48 | Emergency (ER) | payer MEDICARE, OTHER, SELFPAY ==
[2021-01-26 11:54] VITALS: BP 136/80; PULSE 111; RESP 16; TEMP 36.6; O2SAT 96; BMI 27.8
--- NOTE | 2021-01-26 14:29 | XR_ITS ---
WS: [id number] PORTABLE CHEST HISTORY: dyspnea/cough COMPARISON: 2020 Dual lead LEFT subclavian pacer. Prior sternotomy. There are a few scattered interstitial areas of thickening bilaterally, slightly greater in the RIGHT lung. No pleural effusion or pneumothorax. Cardiac size: Normal. Mediastinum/Aorta: Mild atherosclerosis aorta. No osseous abnormality seen. XR/XR chest 1V portable [id number] IMPRESSION: 1. Very minimal areas of interstitial thickening bilaterally but greatest on t he LEFT. No dense pneumonia or consolidation. 2. Normal heart.
--- NOTE | 2021-01-26 14:46 | ED_ITS ---
HPI - Weakness General: Chief complaint: Weakness Stated complaint: GENERALIZED WEAKNESS Time Seen by Provider: 01/26/21 14:06 History of Present Illness: HPI Narrative: 75-year-old male presents emergency room complaining of weakness confusion the last couple of weeks.Patient was initially seen and admitted on January 08 Covid pneumonitis. He had some acute kidney injury during that hospitalization was ultimately discharged on . Patient was readmitted on January 19 with altered mental status again complications of Covid pneumonia. That hospital stay lasted through January 24. At the time of discharge he was advised to go the longterm declined and they went home family is not been able to care for him he still weak and confused still complaining of serious fatigue lack of ability to handle his ADLs due to residual from his Covid infection. MD Complaint: generalized weakness Onset (ago): hour(s) Duration: constant Relieving factors: none Exacerbating factors: none Context: recent illness Associated symptoms: Reports confusion; Denies chest pain, chills, melena, decreased appetite, diaphoresis, dysuria, easy bruising, fever(s), headache(s), myalgias, nausea, rash, short of breath, syncope or vomiting Review of Systems Const: Denies: fever(s), chills or diaphoresis ENMT: Denies: throat pain, ear or mastoid pain, nasal discharge or nasal congestion Card: Denies: chest pain or syncope Resp: Denies: dyspnea, productive cough or non-productive cough GI: Denies: nausea, vomiting or melena : Denies: dysuria Skin/Breast: Denies: rash or pruritus Neuro: Reports: confusion; Denies: headache(s) Madi/Lymph: Denies: easy bruising PFS ED PFSH: Medical History ASHD (arteriosclerotic heart disease) BPH loc w urin obs/LUTS Carotid stenosis, bilateral CKD (chronic kidney disease) CLL (chronic lymphocytic leukemia) Complex renal cyst COVID-19 (~12/2020) COVID-19 vaccine administered (~12/2020) completed series in December 2020 Diabetes Dyslipidemia HTN (hypertension) Surgical History H/O removal of testicle S/P appendectomy S/P CABG (coronary artery bypass graft) S/P PTCA (percutaneous transluminal coronary angioplasty) Status cardiac pacemaker Family History Mother , in her 70's Diabetes CAD (coronary artery disease) Father , at age 69 CAD (coronary artery disease) Hypertension Other Stroke Social History Alcohol intake: current Alcohol intake frequency: holidays/special occasions only Household members: spouse Marital status: Current occupational status: retired Physical Exam Const: COMMON NORMALS: no acute distress and patient oriented x3 GENERAL APPEARANCE: cooperative ORIENTATION/CONSCIOUSNESS: Yes awake, Yes oriented to person, Yes oriented to place and Yes oriented to time HENMT: COMMON NORMALS: normocephalic, atraumatic, hearing grossly normal bilaterally, external ears normal, EAC's normal, TM's normal bilaterally, Normal nasal mucous membranes and turbinates present, moist oral mucous membranes and oropharynx normal HEAD & SCALP: normocephalic and atraumatic NOSE: Normal nasal mucous membranes and turbinates present EXTERNAL EAR: Yes external ears normal EXTERNAL AUDITORY CANAL: EAC's normal TYMPANIC MEMBRANE: TM's normal bilaterally Eye: COMMON NORMALS: Equal, round and reactive pupils present, EOMs intact bilaterally, conjunctivae normal and no scleral icterus CONJUNCTIVA: Yes conjunctivae normal PUPIL: Yes Equal, round and reactive pupils present Neck/C-Spine: COMMON NORMALS: full ROM, no lymphadenopathy, supple and no JVD Lymph: LYMPHATIC: no lymphadenopathy noted and no lymphedema noted Resp: COMMON NORMALS: normal respiratory effort, No retractions, No use of accessory muscles and clear to auscultation bilaterally AUSCULTATION: clear to auscultation bilaterally Cardio: COMMON NORMALS: no JVD, regular rate, regular rhythm and No murmurs present (Cardio) RATE: regular rate RHYTHM: regular rhythm GI: COMMON NORMALS: Soft to palpation and No hepatosplenomegaly present AUSCULTATION: Yes normoactive bowel sounds PALPATION: Yes Soft to palpation, No Tenderness to palpation present (GI), No Guarding due to palpation present (GI) and Yes No hepatosplenomegaly present Extremity: COMMON NORMALS: normal to inspection, capillary refill normal, no clubbing, cyanosis or edema, no calf tenderness and no pedal edema Neuro: COMMON NORMALS: patient oriented x3, CN's II-XII intact bilaterally, moves all extremities, no focal motor deficits and no sensory deficits noted SENSORIUM/ORIENTATION: Yes oriented to person, Yes oriented to place and Yes oriented to time Skin: COMMON NORMALS: no rashes or lesions noted GENERAL SKIN EXAM: no rashes or lesions noted Course Vital Signs: Vital signs: Vital Signs Temperature 97.8 F 01/26/21 11:54 Pulse Rate 88 01/26/21 15:25 Respiratory Rate 18 01/26/21 15:25 Blood Pressure 129/71 01/26/21 17:17 Pulse Oximetry 96 01/26/21 17:17 MDM - Weakness MDM Narrative: Medical decision making narrative: Patient is doing well at this point time mostly just below sequela from his Covid.We will go ahead and discharge home if the worsening changes symptoms recheck. Lab Data: Labs: Lab Results 01/26/21 01/26/21 Range/Units 15:22 15:22 WBC 13.3 H (4.0-10.0) 10^3/ uL RBC 4.04 L (4.1-5.3) 10^6/u L Hgb 11.2 L (11.7-16.6) g/dL Hct 36.5 L (42.0-52.0) % MCV 90.3 (80-94) fL MCH 27.7 L (28.0-34.0) pg MCHC 30.7 (30.0-36.0) g/dL RDW 15.9 H (12.1-15.1) % Plt Count 83 L (130-400) 10^3/c mm MPV 10.8 H (7.4-10.4) fL Neut % (Auto) 83.4 % Lymph % (Auto) 10.6 % [place] % (Auto) 4.8 % Eos % (Auto) 0.2 % Baso % (Auto) 0.2 % Neut # (Auto) 11.08 H (1.8-7.7) 10^3/u L Lymph # (Auto) 1.4 (0.8-4.8) 10^3/u L [place] # (Auto) 0.6 (0.2-0.9) 10^3/u L Eos # (Auto) 0.0 (0.0-0.8) 10^3/u L Baso # (Auto) 0.0 (0.0-0.1) 10^3/u L Nucleated RBC % (a uto) 0 % Nucleated RBCs # 0.0 /100WBC Sodium 135 L (136-145) mmol/L Potassium 4.4 (3.5-5.1) mmol/L Chloride 101 (98-107) mmol/L Carbon Dioxide 23 (22-29) mmol/L Anion Gap 15.4 (5-19) BUN 39 H (8-23) mg/dL Creatinine 2.7 H (0.7-1.2) mg/dL GFR Calculation Not Reportable Glucose 126 H (65-115) mg/dL Calculated Osmolal ity 291 (285-295) mOsm/k g Calcium 8.3 L (8.5-10.5) mg/dL Total Bilirubin 1.1 (0.15-1.2) mg/dL AST 23 (0-40) U/L ALT 23 (0-41) U/L Alkaline Phosphata se 76 (40-130) IU/L Creatine Kinase 23 L (39-308) U/L Total Protein 5.5 L (6.6-8.7) g/dL Albumin 3.4 L (3.5-5.2) g/dL Globulin 2.1 (1.3-4.6) g/dL Discharge Plan Discharge Patient Disposition: Home Clinical Impression: Weakness, Post-acute sequelae of COVID-19 (PASC) Condition: Stable Prescriptions: No Action nitroglycerin [Nitrostat] 0.4 mg tablet, sublingual 0.4 mg SUBLINGUAL Q5M PRN (Reason: Chest Pain) RF: 0 amlodipine 10 mg tablet 10 mg PO DAILY RF: 0 aspirin [Aspir-81] 81 mg tablet,delayed release (DR/EC) 81 mg PO DAILY RF: 0 cholecalciferol (vitamin D3) 25 mcg (1,000 unit) capsule 50 mcg PO DAILY RF: 0 glucosamine-chondroitin [Osteo Bi-Flex] 250-200 mg tablet 1 tab PO DAILY RF: 0 acetaminophen 325 mg tablet 325 mg PO QID PRN (Reason: Pain) RF: 0 finasteride 5 mg tablet 5 mg PO DAILY RF: 0 atorvastatin 10 mg tablet 10 mg PO DAILY RF: 0 isosorbide mononitrate 30 mg tablet extended release 24 hr 30 mg PO DAILY Qty: 30 RF: 3 isosorbide mononitrate 60 mg tablet extended release 24 hr 60 mg PO DAILY Qty: 30 RF: 3 sodium bicarbonate 650 mg tablet 650 mg PO TID Qty: 90 RF: 0 tamsulosin 0.4 mg capsule 0.4 mg PO DAILY RF: 0 docusate sodium [Colace] 100 mg Capsule 100 mg PO BID PRN (Reason: Constipation) RF: 0 fluticasone propionate [Flonase Allergy Relief] 50 mcg/actuation [place],Suspension 1 spray INTRANASAL BID RF: 0 insulin aspart U-100 [Novolog Flexpen U-100 Insulin] 100 unit/mL (3 mL) Insulin Pen See Rx Instructions .ROUTE .COMPLEX RF: 0 Lantus Solostar U-100 Insulin 100 unit/mL (3 mL) insulin pen 25 unit SUBCUT BEDTIME MDD see pharmacy comment RF: 0 Discharge Orders: Discharge ED (Routine); Ordered 01/26/21 Ordered By: Javid Rothman Referrals: Alejandro Macias MD [Primary Care Provider] - Patient Instructions: Opioid Safety Coding Level of Care Code ED Advertising Operations Coordinator for Jordin Moreno
[2021-01-26 15:25] VITALS: BP 142/80; PULSE 88; RESP 18; O2SAT 98
[2021-01-26 15:29] LABS: Basophils % 0.2 %; Eosinophils % 0.2 %; Hematocrit 36.5 % (42.0-52.0); Hemoglobin 11.2 g/dL (11.7-16.6); Lymphocytes # 1.4 10^3/uL (0.8-4.8); Lymphocytes % 10.6 %; Mean Corpuscular HGB Conc 30.7 g/dL (30.0-36.0); Mean Corpuscular Hemoglobin 27.7 pg (28.0-34.0); Mean Corpuscular Volume 90.3 fL (80-94); Mean Platelet Volume 10.8 fL (7.4-10.4); Monocytes # 0.6 10^3/uL (0.2-0.9); Monocytes % 4.8 %; Neutrophils # 11.08 10^3/uL (1.8-7.7); Neutrophils % 83.4 %; Nucleated Red Blood Cells % 0 %; Platelet Count 83 10^3/cmm (130-400); Red Blood Count 4.04 10^6/uL (4.1-5.3); Red Cell Distribution Width 15.9 % (12.1-15.1); White Blood Count 13.3 10^3/uL (4.0-10.0)
[2021-01-26 15:55] LABS: Alanine Aminotransferase 23 U/L (0-41); Albumin Level 3.4 g/dL (3.5-5.2); Alkaline Phosphatase 76 IU/L (40-130); Aspartate Amino Transferase 23 U/L (0-40); Blood Urea Nitrogen 39 mg/dL (8-23); Calcium 8.3 mg/dL (8.5-10.5); Carbon Dioxide 23 mmol/L (22-29); Chloride 101 mmol/L (98-107); Creatine Phosphokinase 23 U/L (39-308); Globulin 2.1 g/dL (1.3-4.6); Glucose 126 mg/dL (65-115); Osmolality Calculated 291 mOsm/kg (285-295); Sodium 135 mmol/L (136-145); Total Bilirubin 1.1 mg/dL (0.15-1.2); Total Protein 5.5 g/dL (6.6-8.7)
[2021-01-26 16:22] LABS: Anion Gap 15.4 (5-19); Potassium 4.4 mmol/L (3.5-5.1)
[2021-01-26 17:00] VITALS: BP 129/71; O2SAT 96
[2021-01-26 17:17] VITALS: BP 129/71; O2SAT 96
== END 2021-01-26 17:17 | disposition home or self-care (01) ==
PROVIDERS: Emergency Provider Family Medicine; PCP Family Medicine
DX: R53.1 Weakness (principal); B94.8 Sequelae of other specified infectious and parasitic diseases; Z79.82 Long term (current) use of aspirin; Z79.4 Long term (current) use of insulin; Z85.6 Personal history of leukemia; E11.9 Type 2 diabetes mellitus without complications; E78.5 Hyperlipidemia, unspecified; I10 Essential (primary) hypertension; Z95.1 Presence of aortocoronary bypass graft; Z95.0 Presence of cardiac pacemaker
CPT/HCPCS: 71045; 80053; 82550; 85025; 99283

== ENCOUNTER 2021-01-28 06:30 | Inpatient (IN) | payer MEDICARE, OTHER, SELFPAY ==
[2021-01-28] VITALS (8 sets, daily range): BP systolic 132–165; BP diastolic 68–86; PULSE 80–103; RESP 18–25; TEMP 36.6–36.7; O2SAT 91–97; BMI 31.1; BMI 32.1
[2021-01-28 06:36] LABS: Glucose Point of Care 116 mg/dL (70-110)
--- NOTE | 2021-01-28 06:42 | PC.NURSE ---
POC glucose 116
--- NOTE | 2021-01-28 06:44 | PC.NURSE ---
PT TO CT AT THIS TIME WITH NURSING STAFF AND PHYSICIAN ACCOMPANIED
[2021-01-28 06:45] LABS: Glucose Point of Care 113 mg/dL (70-110)
--- NOTE | 2021-01-28 06:50 | CTR_ITS ---
PROCEDURE INFORMATION: Exam: CT Head Without Contrast Exam date and time: 01/28/2021 6:50 AM Age: 75 years old Clinical indication: Altered mental status/memory loss; Additional info: AMS TECHNIQUE: Imaging protocol: Computed tomography of the head without contrast. Radiation optimization: All CT scans at this facility use at least one of these dose optimization techniques: automated exposure control; mA and/or kV adjustment per patient size (includes targeted exams where dose is matched to clinical indication); or iterative reconstruction. Other technique: STROKE PROTOCOL was implemented. COMPARISON: CT head wo con* [id number] 01/19/2021 1:49 PM RADIATION DOSE METRICS: Total DLP (mGy-cm): 945.97 FINDINGS: Brain: No hemorrhage, mass effect or midline shift. No acute, major vascular distribution infarction identified. There is foci of decreased attenuation in the periventricular and subcortical white matter, likely representing chronic small vessel ischemic changes. Mild cerebral volume loss is present. No intra-axial or extra-axial fluid collection seen. Cerebral ventricles: No ventriculomegaly. Paranasal sinuses: Visualized sinuses are unremarkable. No fluid levels. Mastoid air cells: Visualized mastoid air cells are well aerated. Bones/joints: Unremarkable. No acute fracture. Soft tissues: Unremarkable. CT/CT head wo con* [id number] IMPRESSION: No acute intracranial abnormality. ASSESSMENT: ASPECTS ([place] Stroke Program Early CT Score) is 10. Radiation Dose CTDIVOL = (mGy): DLP = 945.97 (mGy-cm)
--- NOTE | 2021-01-28 06:58 | ED_ITS ---
HPI - Altered Mental Status General: Chief Complaint: Altered Mental Status Stated Complaint: Right sided weakness/slurred speech Time Seen by Provider: 01/28/21 06:52 History of Present Illness: HPI narrative: 75 M w/ hx of DM, HLD, HTN BIBA for concerns of R sided facial droop, slurring of speech and R sided weakness that started at 5:40am that has since then resolved. Per rescue, on arrival, patient had a glucose of 80, and was started on D10 IVF. In the ED, patient had a glucose of 116, and no longer having any symptoms of R sided wekaness and facial droop. Patient denies any focal complaints today. Story was confirmed with family who reported last week patient also had intermittent palpitations and skipped heart beat. Onset: 1 hr ago Duration: 1 hr Severity: moderate Location: home Review of Systems Narrative: Constitutional: No fever, no chills. HEENT: No vision changes CV: No chest pain, no palpitations PULM: no cough, no dyspnea. GI: No abdominal pain, no N/V/D. : No dysuria MSKEL: No muscle pain SKIN: No new rashes, no lesions. NEURO: No headache, no focal weakness. HEME: No visible bruises PSYCH: Normal mood PFSH ED PFSH: Medical History (Updated 01/28/21 @ 08:09 by Miranda Pedraza MD) ASHD (arteriosclerotic heart disease) BPH loc w urin obs/LUTS Carotid stenosis, bilateral CKD (chronic kidney disease) CLL (chronic lymphocytic leukemia) Complex renal cyst COVID-19 (~12/2020) Diabetes Dyslipidemia Gross hematuria HTN (hypertension) Nocturia Scrotal edema Surgical History (Updated 01/28/21 @ 08:09 by Miranda Pedraza MD) H/O removal of testicle S/P appendectomy S/P CABG (coronary artery bypass graft) S/P PTCA (percutaneous transluminal coronary angioplasty) Status cardiac pacemaker Family History Mother , in her 70's Diabetes CAD (coronary artery disease) Father , at age 69 CAD (coronary artery disease) Hypertension Other Stroke Social History Alcohol intake: current Alcohol intake frequency: holidays/special occasions only Household members: spouse Marital status: Current occupational status: retired History of recent travel: No Physical Exam Narrative: EXAM NARRATIVE: Head: Atraumatic Eyes: PERRL, conjunctiva without injection ENT: Mucous membrane moist NECK: Supple without lymphadenopathy LUNGS: CTA CV: RRR ABDOMEN: Soft, nontender in all quadrants, no guarding or rebound tenderness EXTREMITY: Normal ROM SKIN: No rash or erythema NEURO: Awake and alert. NEURO: AAOx3 CN II-XII tested and intact. Sensation intact to sharp/dull differentiation in all extremities. Motor: Normal tone and bulk. No abnormal movements appreciated. No pronator drift. Strength tested and 5/5 in bilateral wrist flexion/extension, elbow flexion/extension, shoulder abduction, flexion/extension, ankle dorsiflexion/plantarflexion. Coordination finger to nose grossly intact. Patient able to ambulate with a walker. PSYCH: Normal mood and affect. Course Vital Signs: Vital signs: Vital Signs Temperature 98.1 F 01/28/21 06:30 Pulse Rate 85 01/28/21 07:24 Respiratory Rate 25 H 01/28/21 07:24 Blood Pressure 165/86 01/28/21 06:30 Pulse Oximetry 97 01/28/21 07:24 MDM - Altered Mental Status MDM Narrative: Medical decision making narrative: 75M w/ multiple comorbidities including CABG, DM, HTN, HLD prsenting to ED for concern of transient R sided weakness, slurring of speech and facial droop. On arrival, no visible facial droop and strength intact. Glucose wnl. Given concerns for TIA and baseline confusion, a stroke alert was called at 7:04AM. NIHSS score of 0. CT brain showed chronic atrophy. Stroke alert was completed at 7:15AM. Workup today showed mild hpyonatriemia to 133, Cr of 3.2 consistent with baseline of 2.7-3.7. Troponin elevated at 289 with no prior for comparison. Patient denies any chest pain or shortness of breath. Given aspirin 325mg in the ED. Discussed findings of troponin elevation with Dr. Pedraza who agrees with holding anticoagulation and other antiplatelet therapy for now, will trend troponin. Patient is due for placement for jail on Friday for baseline cognitive decline and inability to take care of self at home. Will need TIA workup prior to transferrring to outside facility. Disposition: Admission Lab Data: Labs: Lab Results 3 01/28/21 01/28/21 01/28/21 Range/Units 06:30 06:30 06:34 PT (12.1-14.9) SECO NDS INR (0.8-1.2) APTT (23.9-36.7) SECO NDS Sodium 133 L (136-145) mmol/L Potassium 4.0 (3.5-5.1) mmol/L Chloride 97 L (98-107) mmol/L Carbon Dioxide 23 (22-29) mmol/L Anion Gap 17.0 (5-19) BUN 44 H (8-23) mg/dL Creatinine 3.2 H (0.7-1.2) mg/dL GFR Calculation Not Reportable Glucose 85 (65-115) mg/dL POC Glucose 116 H (70-110) mg/dL Calculated Osmolal ity 286 (285-295) mOsm/k g Calcium 8.5 (8.5-10.5) mg/dL Total Bilirubin 0.8 (0.15-1.2) mg/dL AST 19 (0-40) U/L ALT 17 (0-41) U/L Alkaline Phosphata se 81 (40-130) IU/L Troponin T Gen 5 n g/L 289 H* (0-15) ng/L Total Protein 5.6 L (6.6-8.7) g/dL Albumin 3.4 L (3.5-5.2) g/dL Globulin 2.2 (1.3-4.6) g/dL Lipase 34 (13-60) U/L 01/28/21 01/28/21 Range/Units 06:42 07:23 PT 14.80 (12.1-14.9) SECO NDS INR 1.13 (0.8-1.2) APTT 24.3 (23.9-36.7) SECO NDS Sodium (136-145) mmol/L Potassium (3.5-5.1) mmol/L Chloride (98-107) mmol/L Carbon Dioxide (22-29) mmol/L Anion Gap (5-19) BUN (8-23) mg/dL Creatinine (0.7-1.2) mg/dL GFR Calculation Glucose (65-115) mg/dL POC Glucose 113 H (70-110) mg/dL Calculated Osmolal ity (285-295) mOsm/k g Calcium (8.5-10.5) mg/dL Total Bilirubin (0.15-1.2) mg/dL AST (0-40) U/L ALT (0-41) U/L Alkaline Phosphata se (40-130) IU/L Troponin T Gen 5 n g/L (0-15) ng/L Total Protein (6.6-8.7) g/dL Albumin (3.5-5.2) g/dL Globulin (1.3-4.6) g/dL Lipase (13-60) U/L Imaging Data^: Other Imaging: Radiologist's impression: [employer] [id number] Scan ReportSigned Patient: Valente Renae #: [id number]: 1945cct#:[id number]/Sex: 75 / MADM Date: 01/28/21Loc: ERRoom/Bed:Attending Dr: Ordering Provider/Ordering MD: Jewel Goodwin MD Date of Service: 01/28/21 Procedure(s): CT head wo con* [id number] Accession Number(s): [id number] Report Number: [id number] PROCEDURE INFORMATION: Exam: CT Head Without Contrast Exam date and time: 01/28/2021 6:50 AM Age: 75 years old Clinical indication: Altered mental status/memory loss; Additional info: AMS TECHNIQUE: Imaging protocol: Computed tomography of the head without contrast. Radiation optimization: All CT scans at this facility use at least one of these dose optimization techniques: automated exposure control; mA and/or kV adjustment per patient size (includes targeted exams where dose is matched to clinical indication); or iterative reconstruction. Other technique: STROKE PROTOCOL was implemented. COMPARISON: CT head wo con* [id number] 01/19/2021 1:49 PM RADIATION DOSE METRICS: Total DLP (mGy-cm): 945.97 FINDINGS: Brain: No hemorrhage, mass effect or midline shift. No acute, major vascular distribution infarction identified. There is foci of decreased attenuation in the periventricular and subcortical white matter, likely representing chronic small vessel ischemic changes. Mild cerebral volume loss is present. No intra-axial or extra-axial fluid collection seen. Cerebral ventricles: No ventriculomegaly. Paranasal sinuses: Visualized sinuses are unremarkable. No fluid levels. Mastoid air cells: Visualized mastoid air cells are well aerated. Bones/joints: Unremarkable. No acute fracture. Soft tissues: Unremarkable. CT/CT head wo con* [id number] IMPRESSION: No acute intracranial abnormality. ASSESSMENT: ASPECTS ([place] Stroke Program Early CT Score) is 10. Radiation Dose CTDIVOL = (mGy): DLP = 945.97 (mGy-cm) Dictated By:Peyton Oviedo By:Peyton Oviedo Date/Time:01/28/21706DD/ 4 Discharge Plan Discharge Prescriptions: No Action nitroglycerin [Nitrostat] 0.4 mg tablet, sublingual 0.4 mg SUBLINGUAL Q5M PRN (Reason: Chest Pain) RF: 0 amlodipine 10 mg tablet 10 mg PO DAILY RF: 0 aspirin [Aspir-81] 81 mg tablet,delayed release (DR/EC) 81 mg PO DAILY RF: 0 cholecalciferol (vitamin D3) 25 mcg (1,000 unit) capsule 50 mcg PO DAILY RF: 0 glucosamine-chondroitin [Osteo Bi-Flex] 250-200 mg tablet 1 tab PO DAILY RF: 0 acetaminophen 325 mg tablet 325 mg PO QID PRN (Reason: Pain) RF: 0 finasteride 5 mg tablet 5 mg PO DAILY RF: 0 atorvastatin 10 mg tablet 10 mg PO DAILY RF: 0 isosorbide mononitrate 30 mg tablet extended release 24 hr 30 mg PO DAILY Qty: 30 RF: 3 isosorbide mononitrate 60 mg tablet extended release 24 hr 60 mg PO DAILY Qty: 30 RF: 3 sodium bicarbonate 650 mg tablet 650 mg PO TID Qty: 90 RF: 0 tamsulosin 0.4 mg capsule 0.4 mg PO DAILY RF: 0 docusate sodium [Colace] 100 mg Capsule 100 mg PO BID PRN (Reason: Constipation) RF: 0 fluticasone propionate [Flonase Allergy Relief] 50 mcg/actuation [place],Suspension 1 spray INTRANASAL BID RF: 0 insulin aspart U-100 [Novolog Flexpen U-100 Insulin] 100 unit/mL (3 mL) Insulin Pen See Rx Instructions .ROUTE .COMPLEX RF: 0 Lantus Solostar U-100 Insulin 100 unit/mL (3 mL) insulin pen 50 unit SUBCUT BID MDD see pharmacy comment RF: 0 Coding Level of Care Code ED Database Design Analyst for Jordin Moreno
--- NOTE | 2021-01-28 07:10 | ECG_ITS ---
[facility] ED Test Date: 2021-01-28 Pat Name: Valente Renae Department: Room: Gender: Male Lean Engineer: : 1945 Requested By: Jewel Goodwin Order Number: [id number] MD: Kya Chahal M.D. Measurements Intervals [place] Rate: 103 P: 102 PA: 219 QRS: -53 QRSD: 100 T: 141 QT: 331 QTc: 434 Interpretive Statements A sensed V paced rhythm compared to ECG 01/19/2021 17:43:24 No significant change Electronically Signed On 02-06-2021 16:25:30 CDT by Kya Chahal M.D. [email or web address] residential centerOramed Pharmaceuticalsthe [facility].[id number] f
[2021-01-28 07:25] LABS: Basophils % 0.3 %; Eosinophils # 0.3 10^3/uL (0.0-0.8); Eosinophils % 2.5 %; Hematocrit 34.5 % (42.0-52.0); Lymphocytes # 2.7 10^3/uL (0.8-4.8); Lymphocytes % 23.3 %; Mean Corpuscular HGB Conc 31.9 g/dL (30.0-36.0); Mean Corpuscular Hemoglobin 27.8 pg (28.0-34.0); Mean Corpuscular Volume 87.1 fL (80-94); Mean Platelet Volume 10.9 fL (7.4-10.4); Monocytes # 1.7 10^3/uL (0.2-0.9); Monocytes % 14.3 %; Neutrophils # 6.71 10^3/uL (1.8-7.7); Neutrophils % 58.2 %; Nucleated Red Blood Cells % 0 %; Platelet Count 72 10^3/cmm (130-400); Red Blood Count 3.96 10^6/uL (4.1-5.3); Red Cell Distribution Width 16.2 % (12.1-15.1); White Blood Count 11.5 10^3/uL (4.0-10.0)
[2021-01-28 07:40] LABS: INR 1.13 (0.8-1.2)
[2021-01-28 07:41] LABS: Partial Thromboplastin Time 24.3 SECONDS (23.9-36.7)
[2021-01-28 07:50] LABS: Alanine Aminotransferase 17 U/L (0-41); Albumin Level 3.4 g/dL (3.5-5.2); Alkaline Phosphatase 81 IU/L (40-130); Aspartate Amino Transferase 19 U/L (0-40); Blood Urea Nitrogen 44 mg/dL (8-23); Calcium 8.5 mg/dL (8.5-10.5); Carbon Dioxide 23 mmol/L (22-29); Chloride 97 mmol/L (98-107); Globulin 2.2 g/dL (1.3-4.6); Glucose 85 mg/dL (65-115); Lipase 34 U/L (13-60); Osmolality Calculated 286 mOsm/kg (285-295); Sodium 133 mmol/L (136-145); Total Bilirubin 0.8 mg/dL (0.15-1.2); Total Protein 5.6 g/dL (6.6-8.7)
[2021-01-28 07:53] LABS: Troponin T (5th) Once 289 ng/L (0-15)
--- NOTE | 2021-01-28 08:03 | PC.NURSE ---
PT UP TO AMBULATE PER DR. PT WAS ABLE TO WALK WELL WITHOUT ASSISTANCE USING A WALKER.
--- NOTE | 2021-01-28 08:32 | P.HP_ITS ---
Providers/Chief Complaint Admitting Physician: Miranda Pedraza MD Primary Care Provider: Alejandro Macias MD Chief Complaint: LOW BS History of Present Illness Valente Renae is a 75 year old male who presented to the emergency room with alteration of mental status, facial droop and slurred speech. He was diagnosed with COVID-19 on January 08. He had had respiratory symptoms from January 08 until January 14. He received remdesivir and dexamethasone. He was requiring oxygen during the hospital stay. He also received Levaquin for an enteric coccus in his urine during that stay. He was rehospitalized on January 19 after an episode of alteration in mental status. He was very confused. CT of the head showed no acute changes. It was felt that symptoms may have been secondary to fl uoroquinolone therapy which was stopped. He was improved and able to be discharged on January 24. Consideration was given to snf home placement but family opted for him to be discharged home. He presented again to the emergency room on January 26 this time with weakness in addition to confusion. He was requiring significant assistance in his ADLs due to degree of easy fatigability. Work-up was unrevealing for acute need to readmit to the hospital. Arrangements were underway for placement, as reported to me, possibly tomorrow. This morning however he awakened from sleep and called out to his daughter. He was not able to raise up his lift chair using his right hand. 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 Additionally he had a right-sided facial droop, inability to articulate words and slurring of words when they did form. He seemed oriented today and understood per her what she was asking him but could not respond. No reported visual changes. When EMS arrived his blood sugar was in the 80s. Daughter states that he was not clammy like he usually is when he is hypoglycemic. EMS treated him with some D10 and upon arrival here blood sugar was 116. Stat CT of the head did not show any acute findings. Initial NIH stroke score 0 per the ER physician. No focal deficits identified on e xamination here. Patient is currently able to provide history with some blanks in what he can recall. He admits to a sensation of his mind not working right at times, difficulty doing what he wants to do more so than usual, especially this morning when things did not work right on the right side, some difficulty walking necessitating utilization of a walker lately, shortness of breath with exertion. His family is also noted that he had a lot of skipped beats and increased blood pressures at times over the last few days. He denies any chest pain. No report of any significant hypoxemia. EKG with a paced rhythm, similar nonspecific changes compared to EKGs last hospital stay. Work-up today included a troponin that was elevated at 289. When he was hospitalized here previously within the last month, troponin was around 70. He had an echocardiogram done on January 21 that was unchanged from prior studies. Also noted was a platelet count of 72, where prior values had ranged from 111-172 until his ED visit on January 26 when platelet count was 83. He denies any bleeding. He does have some bruising where he has received previous DVT prophylaxis injections in the abdomen. At the present time patient feels back to his recent baseline. Minimal cough. Still with runny nose. Still with loss of taste and smell. Not sleeping well due to being unable to fall asleep, not because of respiratory issues. He is being admitted for further evaluation and treatment. Review of Systems Const: Reports: change in appetite, fatigue and change in sleep pattern; Denies: fever(s), chills, body aches or change in weight Eyes: Denies: change in vision ENMT: Reports: nasal discharge; Denies: throat pain, bleeding gums or disequilibrium Card: Reports: palpitations, edema (A little bit) and dyspnea on exertion; Denies: chest pain or syncope Resp: Reports: dyspnea and non-productive cough; Denies: productive cough, wheezing, pain on inspiration or hemoptysis GI: Reports: diarrhea; Denies: abdominal pain, nausea, vomiting, constipation, hematochezia or melena : Reports: other (urine getting darker ); Denies: difficulty urinating Musc: Reports: extremity pain (some pain in his calves) and muscle weakness; Denies: joint swelling Skin/Breast: Denies: rash, pruritus or sores Neuro: Reports: weakness in extremities (general rather than focal), difficulty walking (using walker), confusion, Slurred speech present (transient, now resolved) and difficulty communicating thoughts; Denies: headache(s), numbness in extremities or frequent falls Psych: Denies: anxiety or depression Madi/Lymph: Denies: easy bruising, easy bleeding or petechiae Medications/Allergies Home Medications Medication Instructions Recorded Confirmed Last Taken Type amlodipine 10 mg tablet 10 mg PO DAILY 11/22/19 01/28/21 01/27/21 History aspirin 81 mg tablet,delayed 81 mg PO DAILY 11/22/19 01/28/21 01/27/21 History release nitroglycerin 0.4 mg sublingual 0.4 mg SUBLINGUAL Q5M PRN 11/22/19 01/28/21 Unknown History tablet docusate sodium [Colace] 100 mg PO BID PRN 12/02/19 01/28/21 04/30/20 History fluticasone propionate [Flonase 1 spray INTRANASAL BID 12/02/19 01/28/21 01/25/21 History Allergy Relief] insulin aspart U-100 [Novolog See Rx Instructions .ROUTE .COMPLEX 12/02/19 01/28/21 Unknown History Flexpen U-100 Insulin] acetaminophen 325 mg tablet 325 mg PO QID PRN 06/13/20 01/28/21 Unknown History finasteride 5 mg tablet 5 mg PO DAILY 07/25/20 01/28/21 01/27/21 History atorvastatin 10 mg tablet 10 mg PO DAILY 11/14/20 01/28/21 01/27/21 History cholecalciferol (vitamin D3) 25 50 mcg PO DAILY cap 12/14/20 01/28/21 01/27/21 History mcg (1,000 unit) capsule glucosamine-chondroitin 250 mg-200 1 tab PO DAILY tab 12/14/20 01/28/21 01/25/21 History mg tablet insulin glargine 100 unit/mL (3 25 unit SUBCUT BEDTIME ml MDD see 12/14/20 01/28/21 01/27/21 History mL) subcutaneous pen pharmacy comment sodium bicarbonate 650 mg PO TID #90 tab 01/14/21 01/28/21 01/27/21 Rx tamsulosin 0.4 mg PO DAILY 01/19/21 01/28/21 01/27/21 History isosorbide mononitrate 30 mg 30 mg PO DAILY #30 tab 01/23/21 01/28/21 01/27/21 Rx tablet,extended release 24 hr isosorbide mononitrate 60 mg 60 mg PO DAILY #30 tab 01/23/21 01/28/21 01/27/21 Rx tablet,extended release 24 hr Allergies Allergy/AdvReac Type Severity Reaction Status Date / Time allopurinol Allergy ALGY-Rash Verified 01/08/21 19:28 Iodinated Contrast Media Allergy ALGY-Hives Verified 01/08/21 19:28 metformin Allergy ADR-Fatigue Verified 01/08/21 19:28 d Additional Medication Information I personally reviewed home medication list and medications received day of admission thus far PFSH Acute PFSH: Medical History (Updated 01/28/21 @ 12:30 by Miranda Pedraza MD) ASHD (arteriosclerotic heart disease) BPH loc w urin obs/LUTS Carotid stenosis, bilateral CKD (chronic kidney disease) CLL (chronic lymphocytic leukemia) Complex renal cyst COVID-19 (~12/2020) COVID-19 vaccine administered (~12/2020) completed series in December 2020 Diabetes Dyslipidemia HTN (hypertension) Surgical History (Updated 01/28/21 @ 08:09 by Miranda Pedraza MD) H/O removal of testicle S/P appendectomy S/P CABG (coronary artery bypass graft) S/P PTCA (percutaneous transluminal coronary angioplasty) Status cardiac pacemaker Family History Mother , in her 70's Diabetes CAD (coronary artery disease) Father , at age 69 CAD (coronary artery disease) Hypertension Other Stroke Social History (Updated 01/28/21 @ 10:05 by Miranda Pedraza MD) Alcohol intake: current Alcohol intake frequency: holidays/special occasions only Household members: spouse Marital status: Current occupational status: retired Vitals/I&O/Wt Last Vital Signs Temp 98.1 F 01/28/21 06:30 Pulse 85 01/28/21 07:24 Resp 25 H 01/28/21 07:24 BP 165/86 01/28/21 06:30 Pulse Ox 97 01/28/21 07:24 Weight last 48 hrs Weight 101.151 kg Physical Exam Narrative: EXAM NARRATIVE: Constitutional: Awake and alert, oriented to person and place, not to situation but unable to provide some details. Cooperative HEENT: Normocephalic, atraumatic, pupils are equally round and reactive to light bilaterally, arcus senilis is noted more so on the right eye versus the left, nasopharynx with some clear rhinorrhea, scant, oropharynx with dry mucous membranes, no petechiae or bleeding noted Neck: Supple Respiratory: Clear to auscultation bilaterally without any rales rhonchi or wheezes noted Cardiovascular: Regular rhythm, heart sounds slightly distant, no murmurs noted, 2+ upper extremity pulses, 1+ lower extremity pulses, capillary refill is brisk Abdomen: Soft, nontender, positive bowel sounds with no masses noted : Deferred Extremities: Trace pitting edema bilaterally, left lower extremity a little bit more prominent than right lower extremity. Right lower extremity calf is tender to palpation but no palpable cords. No cyanosis. Skin: Bruising noted to the abdomen in various sites consistent with iatrogenic DVT prophylaxis injections, no significant petechiae or other bruising noted. No rashes. Skin is pale and dry. Does have chronic stasis changes to distal extremities Neuro: Face symmetric, speech is clear, shoulder shrug is equal, handgrip is equal, strength is equal at both feet/lower leg but generally weak, gait not currently assessed. Toes are equivocal. Psych: Normal affect, concerned about recent medical issues Data : 01/28/21 06:30 01/28/21 06:30 Other data: Laboratory Results WBC 11.5 10^3/uL (4.0-10.0) H 01/28/21 06:30 RBC 3.96 10^6/uL (4.1-5.3) L 01/28/21 06:30 Hgb 11.0 g/dL (11.7-16.6) L 01/28/21 06:30 Hct 34.5 % (42.0-52.0) L 01/28/21 06:30 MCV 87.1 fL (80-94) 01/28/21 06:30 MCH 27.8 pg (28.0-34.0) L 01/28/21 06:30 MCHC 31.9 g/dL (30.0-36.0) 01/28/21 06:30 RDW 16.2 % (12.1-15.1) H 01/28/21 06:30 Plt Count 72 10^3/cmm (130-400) L 01/28/21 06:30 MPV 10.9 fL (7.4-10.4) H 01/28/21 06:30 Neut % (Auto) 58.2 % 01/28/21 06:30 Lymph % (Auto) 23.3 % 01/28/21 06:30 [place] % (Auto) 14.3 % 01/28/21 06:30 Eos % (Auto) 2.5 % 01/28/21 06:30 Baso % (Auto) 0.3 % 01/28/21 06:30 Neut # (Auto) 6.71 10^3/uL (1.8-7.7) 01/28/21 06:30 Lymph # (Auto) 2.7 10^3/uL (0.8-4.8) 01/28/21 06:30 [place] # (Auto) 1.7 10^3/uL (0.2-0.9) H 01/28/21 06:30 Eos # (Auto) 0.3 10^3/uL (0.0-0.8) 01/28/21 06:30 Baso # (Auto) 0.0 10^3/uL (0.0-0.1) 01/28/21 06:30 Nucleated RBC % (auto) 0 % 01/28/21 06:30 Nucleated RBCs # 0.0 /100WBC 01/28/21 06:30 PT 14.80 SECONDS (12.1-14.9) 01/28/21 07:23 INR 1.13 (0.8-1.2) 01/28/21 07:23 APTT 24.3 SECONDS (23.9-36.7) 01/28/21 07:23 Sodium 133 mmol/L (136-145) L 01/28/21 06:30 Potassium 4.0 mmol/L (3.5-5.1) 01/28/21 06:30 Chloride 97 mmol/L (98-107) L 01/28/21 06:30 Carbon Dioxide 23 mmol/L (22-29) 01/28/21 06:30 Anion Gap 17.0 (5-19) 01/28/21 06:30 BUN 44 mg/dL (8-23) H 01/28/21 06:30 Creatinine 3.2 mg/dL (0.7-1.2) H 01/28/21 06:30 GFR Calculation Not Reportable 01/28/21 06:30 Glucose 85 mg/dL (65-115) 01/28/21 06:30 POC Glucose 113 mg/dL (70-110) H 01/28/21 06:42 Calculated Osmolality 286 mOsm/kg (285-295) 01/28/21 06:30 Calcium 8.5 mg/dL (8.5-10.5) 01/28/21 06:30 Total Bilirubin 0.8 mg/dL (0.15-1.2) 01/28/21 06:30 AST 19 U/L (0-40) 01/28/21 06:30 ALT 17 U/L (0-41) 01/28/21 06:30 Alkaline Phosphatase 81 IU/L (40-130) 01/28/21 06:30 Troponin T Gen 5 ng/L 289 ng/L (0-15) H* 01/28/21 06:30 Troponin T 120 Minute 271.6 ng/L (0-15) H 01/28/21 08:41 Delta Troponin T -17.4 ABS# (0-10) L 01/28/21 08:41 Total Protein 5.6 g/dL (6.6-8.7) L 01/28/21 06:30 Albumin 3.4 g/dL (3.5-5.2) L 01/28/21 06:30 Globulin 2.2 g/dL (1.3-4.6) 01/28/21 06:30 Lipase 34 U/L (13-60) 01/28/21 06:30 Urine Color Yellow (Yellow) 01/28/21 08:02 Urine Appearance Sl hazy (CLEAR) 01/28/21 08:02 Urine pH 5 (5-7) 01/28/21 08:02 Ur Specific [place] 1.020 (1.005-1.030) 01/28/21 08:02 Urine Protein 2+ (Negative) H 01/28/21 08:02 Urine Glucose (UA) Norm (Normal) 01/28/21 08:02 Urine Ketones Negative (Negative) 01/28/21 08:02 Urine Blood 3+ (Negative) H 01/28/21 08:02 Urine Nitrate Negative (Negative) 01/28/21 08:02 Urine Bilirubin 1+ (Negative) H 01/28/21 08:02 Urine Urobilinogen Norm mg/dL (Negative) 01/28/21 08:02 Ur Leukocyte Esterase 1+ (Negative) H 01/28/21 08:02 Urine RBC 5-10 /hpf (0-2) H 01/28/21 08:02 Urine WBC 15-25 /hpf (0-5) H 01/28/21 08:02 Ur Squamous Epith Cells Rare /hpf (0-5) 01/28/21 08:02 Amorphous Sediment 1+ /hpf 01/28/21 08:02 Urine Bacteria 2+ /hpf (NONE) H 01/28/21 08:02 Urine Mucus Trace /hpf 01/28/21 08:[address] 01/28/21 06:50 IMPRESSION: No acute intracranial abnormality. ASSESSMENT: ASPECTS ([place] Stroke Program Early CT Score) is 10. Radiation Dose CTDIVOL = (mGy): DLP = 945.97 (mGy-cm) PREVIOUS STUDIES REVIEWED: ECHO 01/21/2021: CONCLUSIONS 1-Normal left ventricular cavity size. Mildly decreased left ventricular systolic function. Global left ventricular hypokinesis. Left ventricular ejection fraction is estimated at 50 %. 2-Moderate aortic valve calcification. No aortic valve stenosis. Trace aortic valve regurgitation. 3-Moderately thickened mitral valve. No mitral valve stenosis. Mild mitral valve regurgitation. 4-There is no pericardial effusion. 5-Pulmonary artery systolic pressure is within normal limits. 6-Right atrial pressure is around 5 mm of mercury. 7-No significant change since the prior echocardiogram study of 11/01/2014 STRESS TEST 01/2019 CONCLUSION: 1. Unremarkable Lexiscan infusion. 2. Nuclear imaging to follow. IMPRESSIONS 1. Small sized perfusion abnormality of mild severity of mid anteroseptal, apical septal, apical inferior and apical jeong with reversibility noted in the mid anteroseptal, apical lateral and apical jeong. 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 2. The left ventricular ejection fraction is mildly reduced with a value of 43%. 3. There is hypokinesis of mid to apical anteroseptal jeong. 4. No prior similar studies to compare. CATH 09/2017 Procedure Summary Patient with previous known coronary bypass surgery presented to the office with unstable angina. Declined stress testing due to classic symptoms. Unfortunately medical records discarded the bypass surgery report so we did not have that information prior to angiography. Coronary angiography revealed mild diffuse disease of the left main, 100% occlusion of the proximal LAD, severe diffuse disease of the circumflex and occlusion of the right coronary artery proximally. Upon injecting the QUENTIN graft, which is widely patent, there is diffuse disease of the mid LAD. Also, distal to the graft insertion site, there is a 90% discrete stenosis of the LAD. The ramus intermedius branch contains only mild diffuse disease and is patent. There is a saphenous vein graft which appears to be in the position of the marginal graft which is occluded. 2 other saphenous vein grafts are in the position of right coronary artery grafts. One appears to be constructed to the PDA. This graft had a 90% stenosis which was stented. The other graft likely goes to another distal right coronary artery branch, probably the posterior LV branch. That graft is severely diffusely diseased in its ostial and proximal portions and there is very little flow into the venetie vessel. Left ventriculography was not performed due to the patient's creatinine. I chose to stent what I thought was the culprit lesion and not pursue stenting of the [place] circumflex, the ven[place]ie LAD or the other right coronary artery graft due to the paucity of flow in these vessels. Recommendations Medical treatment. Continue same medications however add long-acting nitrate. If successful relieving angina with current stent and medical treatment then will leave alone. Otherwise we'll have to reconsider intervention to the [place] circumflex, the mid LAD via the REILLY graft or the other right coronary artery graft. Discussed with other providers: Dr De Anda A&P Assessment and plan (1) Acute alteration in mental status: Recurrent episodes of acute confusion, word finding difficulties, not acting like himself since his Covid diagnosis. Today blood sugars were in the 80s when EMS arrived but not clammy like he usually is with low blood sugars. No report of any hypoxemia associated with episodes. Denies chest pain but acute vascular ischemia in either INFORMATION OFFICER or cardiac regions could also present this way. No medications currently definitively associated with this. On previous visits, fluoroquinolones and Xanax were considered possible contributors but no reported usage this time. Had not been sleeping well, but finally did yesterday. Appears back to recent baseline still with difficulty recalling some details. Not yet back to functional staus pre-covid. Status: Acute (2) Weakness: Generalized and intermittent focal worsening, recurrent over last week or two. Episode this morning was the worst associated with right-sided weakness, right-sided facial droop and inability to articulate words transiently, resolving upon arrival to the emergency room. CT of the head without contrast was negative and NIH stroke scale here was 0. Status: Acute (3) Elevated troponin: Significantly greater than recent values. Unclear significance. He has nonspecific symptoms, none of which involve chest pain. He does report shortness of breath and worsening events after exertion of any kind. History of prior CABG and PTCA. Had echocardiogram done 01/21/2021. Last arteriogram was in September 2017 and last stress test I can find is from January 2019, both with results as noted above. Status: Acute (4) Thrombocytopenia: New development first appearing on Friday, had received Lovenox and heparin during hospital stay for both treatment and prophylaxis, chronically on aspirin therapy, review of records does show some episodes of thrombocytopenia dating back to 2018. Further review of records from then shows that he has a history of chronic lymphocytic leukemia that has been associated with anemia and thrombocytopenia in the past. Was on ibrutinib until January 14 when it was held at discharge from the hospital. This can cause thrombocytopenia itself but can also help with thrombocytopenia and CLL. Follows with Dr. Mann in the outpatient setting. Status: Acute (5) Acute kidney injury superimposed on chronic kidney disease: Baseline creatinine looks to be between 2.7 and 2.9 though with recent acute kidney injury Status: Acute (6) Post-acute sequelae of COVID-19 (PASC): Encompassing recurrent episodes of confusion, weakness, shortness of breath and general difficulty with ADLs. Received remdesivir and dexamethasone. Has not been on home oxygen. Status: Acute (7) Abnormal urinalysis: In a patient with other recent urinalysis positive for 30-40,000 CFU's of Enterococcus faecalis, likely contamination. He does have known prostatic hypertrophy with urinary symptoms. Has some squamous epithelial cells so may be contaminated specimen. Status: Acute (8) ASHD (arteriosclerotic heart disease): History of prior bypass surgery and percutaneous intervention, follows with Dr. De Anda outpatient Status: Chronic (9) Carotid stenosis, bilateral: Has not had recent carotid evaluation Status: Chronic (10) Diabetes: Recent hemoglobin A1c 8.5, recently taken off of alogliptin. Chronically on Lantus which his has been decreasing in dosage as well as on sliding scale insulin. Status: Chronic Qualifiers: Diabetes mellitus type: type 2 Diabetes mellitus terminal make up operator insulin use: with terminal make up operator use Diabetes mellitus complication status: with kidney complications Diabetes mellitus complication detail: with chronic kidney disease Chronic kidney disease stage: stage 3 (moderate) Chronic kidney disease stage 3 subtype: stage 3b (GFR 30-44) Qualified Code(s): E11.22 - Type 2 diabetes mellitus with diabetic chronic kidney disease; N18.32 - Chronic kidney disease, stage 3b; Z79.4 - [facility] (current) use of insulin (11) BPH loc w urin obs/LUTS: Chronically on finasteride and Flomax, follows with Dr. Benavidez Status: Chronic (12) Complex renal cyst: Recently reevaluated on renal ultrasound 12/29/2020 IMPRESSION: 1. Solid mass from the RIGHT kidney measures 6.3 x 6.1 x 6.7 cm and has been previously described and thought to be benign. This may be a hemorrhagic cyst. 2. Stable cyst LEFT kidney. Status: Chronic (13) CLL (chronic lymphocytic leukemia): Has had associated anemia and thrombocytopenia on review of old records. He follows with Dr. Mann, it looks like last visit was approximately a year ago. Status: Chronic Additional A&P Information Inpatient admission Serial cardiac enzymes Had an echocardiogram within the past week that did not show significant change Cardiology consultation, have discussed with Dr. De Anda Continue 81 mg aspirin for now, aware of low platelets Continue home isosorbide, statin and amlodipine Check lipid panel Check carotid ultrasound bilaterally Serial neuro exam Check D-dimer, we have comparative values from over the past month Secondary to continued decline in platelet count, have not initiated full anticoagulation Peripheral smear review Currently with normal PT and PTT, no outward signs of bleeding Was on treatment dose Lovenox 01/19-01/20, then prophylactic subcu heparin thereafter until discharge on January 24 HIT antibodies are pending given recent heparin treatment and drop in platelets, though I suspect thrombocytopenia is probably from not being on his ibrutinib since 01/14, or even conversely from being on ibrutinib Monitor platelet count, H&H, and for signs of bleeding SCDs for DVT prophylaxis presently Venous ultrasound of the lower extremities secondary to leg pain and low platelets, status post Covid, weakness Low rate of IV fluids, 50 cc an hour x10 hours Monitor renal function Rocephin empirically currently Follow-up pending urine culture 20 days status post Covid diagnosis, out of isolation period After further evaluation and monitoring of acute cardiac issues, evaluate exertional oxygen saturations Decrease Lantus dose, low-dose sliding scale, monitor for hypoglycemia Continue home finasteride and Flomax Monitor for urinary retention or other signs of outlet obstruction Renal cyst were evaluated by renal ultrasound last month food and nutrition services assistant to assist with placement pending medical evaluation PT/OT/Speech evalaution Supportive care otherwise Plans, findings and concerns discussed with patient and he given an opportunity to ask questions. Anticipated Disposition: Swing bed at [facility] vs SNF Code Status: Allow natural Attestations Medical Necessity Statement*: Currently anticipate a stay greater than 2 midnights in this gentleman with C ovid last month who is having recurrent episodes of confusion, weakness and today with focal weakness and speech abnormalities transiently. He was found to have significant elevation of troponin compared to recent values. Presentation could represent post Covid sequela however he was due for an outpatient arteriogram to evaluate further from a cardiac standpoint prior to his Covid diagnosis. In addition he has known bilateral carotid stenosis. Low platelet count currently will complicate evaluation and management as well current acute kidney injury. Given he did acute presentation and multitude of issues noted above, anticipate will require ongoing inpatient work-up before disposition eventually to skilled facility/swing bed. Coding Level of Care Code Acute Size Marker for g Fwd Diagnoses Acute alteration in mental status R41.82 Weakness R53.1 Elevated troponin R77.8 Thrombocytopenia D69.6 Acute kidney injury superimposed on chronic kidney disease N17.9; N18.9 Post-acute sequelae of COVID-19 (PASC) B94.8 Abnormal urinalysis R82.90 ASHD (arteriosclerotic heart disease) I25.10 Carotid stenosis, bilateral I65.23 Diabetes E11.22; N18.32; Z79.4 Diabetes mellitus type: type 2 Diabetes mellitus assisted insulin use: with assisted use Diabetes mellitus complication status: with kidney complications Diabetes mellitus complication detail: with chronic kidney disease Chronic kidney disease stage: stage 3 (moderate) Chronic kidney disease stage 3 subtype: stage 3b (GFR 30-44) BPH loc w urin obs/LUTS N40.1 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
[2021-01-28 08:35] LABS: Add Urine Microscopic? YES; Bilirubin Urine 1+ (Negative); Blood Urine 3+ (Negative); Glucose Urine UA Norm (Normal); Ketones Urine Negative (Negative); Leukocyte Esterase Urine 1+ (Negative); Nitrate Urine Negative (Negative); Protein Urine 2+ (Negative); Urine Appearance SL Hazy (CLEAR); Urine Color Yellow (Yellow); Urobilinogen Urine Norm (Negative); pH Urine 5 (5-7)
[2021-01-28 08:37] LABS: Amorphous Sediment Urine 1+ /hpf; Bacteria Urine 2+ /hpf; Mucus Urine TRACE /hpf; Squamous Epithelial Cell Urine RARE /hpf (0-5); WBC Urine 15-25 /hpf (0-5)
[2021-01-28 08:38] LABS: Add Urine Culture? Yes
[2021-01-28 08:41] LABS: Slide Review Slide Review Perform
[2021-01-28 09:29] LABS: Troponin 5 2HR Delta -17.4 ABS# (0-10)
[2021-01-28 09:31] LABS: Troponin 5 2HR 271.6 ng/L (0-15)
[2021-01-28] MEDS: aspirin 325 mg Tablet PO (10:01)
--- NOTE | 2021-01-28 10:19 | USR_ITS ---
PROCEDURE INFORMATION: Exam: US Duplex Lower Extremity Veins, Bilateral Exam date and time: 01/28/2021 10:19 AM Age: 75 years old Clinical indication: Pain; Leg, lower; Bilateral; Additional info: Leg pain, low plts, CR 3.2 TECHNIQUE: Imaging protocol: Real-time duplex ultrasound of the extremities with 2-D stone scale, color Doppler flow and spectral waveform analysis with image documentation. Complete exam focused on the bilateral lower extremity veins. Total images: [id number] COMPARISON: US ROR venous duplex [facility] 09/14/2020 9:46 AM FINDINGS: Right deep veins: Unremarkable. The common femoral, femoral, proximal profunda femoral and popliteal veins are patent without thrombus. Normal Doppler waveforms. Normal compressibility and/or augmentation response. Right superficial veins: Saphenofemoral junction is patent without thrombus. Left deep veins: Unremarkable. The common femoral, femoral, proximal profunda femoral and popliteal veins are patent without thrombus. Normal Doppler waveforms. Normal compressibility and/or augmentation response. Left superficial veins: Saphenofemoral junction is patent without thrombus. Soft tissues: Unremarkable. US/CV venous duplex [facility] [id number] IMPRESSION: No evidence of deep vein thrombosis.
--- NOTE | 2021-01-28 10:19 | USR_ITS ---
PROCEDURE INFORMATION: Exam: US Duplex Bilateral Extracranial Arteries Exam date and time: 01/28/2021 10:19 AM Age: 75 years old Clinical indication: Altered mental status/memory loss and weakness, extremity; Bilateral; Other: Alteration of mental status, facial droop and slurred speech; Additional info: Ams/weakness TECHNIQUE: Imaging protocol: Real-time Duplex ultrasound scan of the bilateral carotid and vertebral arteries combining stone scale, color Doppler and spectral waveform analysis. Bilateral exam. Total images: [id number] COMPARISON: CT head wo con* [id number] 01/28/2021 6:44 AM FINDINGS: Right common carotid artery: Moderate hard and soft atheromatous plaque right common carotid artery bulb with a tiny mobile fragment proximal inferior wall plaque component. Peak systolic velocity measured at the bulb 81 cm/s. Estimated stenosis of the right common carotid artery bulb between 50 and 60%. Right internal carotid artery: Mild thin atheromatous plaquing not resulting in occlusion or hemodynamically significant stenosis. Right ICA/CCA ratio: Within normal limits at 1.22. Right external carotid artery: Findings suggesting hemodynamically significant stenosis with peak systolic velocity of 314 cm/s but with a end-diastolic velocity of 34 cm/s. Right vertebral artery: Unremarkable. Antegrade flow. Left common carotid artery: Moderate atheromatous plaque left common carotid artery bulb. Peak systolic velocity 95 cm/s. Estimated stenosis of the left common carotid artery bulb between 50 and 60%. Left internal carotid artery: Mild thin atheromatous plaquing not resulting in hemodynamically significant stenosis. Peak systolic velocity 126 cm/s and end-diastolic velocity 21 cm/s. Waveforms are normal. Left ICA/CCA ratio: Within normal limits at 0.93. Left external carotid artery: There remains potential for hemodynamically significant stenosis with a peak systolic velocity of 237 cm/s. Left vertebral artery: Unremarkable. Antegrade flow. US/CV carotid duplex BI* [id number] IMPRESSION: 1. Moderate stenosis of between 50 and 60% bilateral common carotid artery bulbs. 2. Mild atheromatous plaquing not resulting in hemodynamically significant stenosis of the bilateral internal carotid arteries. 3. Peak systolic velocity suggesting hemodynamically significant stenosis of the bilateral external carotid arteries. 4. Antegrade flow of all vessels to include the bilateral vertebral arteries. REFERENCES: SRU CRITERIA. The degree of internal carotid artery stenosis is based on criteria defined by the Society of Radiologists in Ultrasound (SRU). Normal is no stenosis. Mild is less than 50% stenosis. Moderate is 50-69% stenosis. Severe is greater than 69% stenosis to near occlusion. Near occlusion is a markedly narrowed lumen. Total occlusion is no detectable patent lumen.
--- NOTE | 2021-01-28 11:18 | P.CONIM_ITS ---
Providers/Reason For Consult Consulting Physician/Specialty*: Alex De Anda MD/cardiology Reason for Consult*: Troponin elevation Requesting Physician: Dr Pedraza Attending Physician: Miranda Pedraza MD Primary Care Provider: Alejandro Macias MD History of Present Illness History of Present Illness Valente Renae is a 75 year old male with PMH coronary artery disease s/p CABG, hypertension, sick sinus syndrome, pacemaker, dyslipidemia, chronic kidney disease, chronic leukemia, diabetes, carotid disease and had angioplasty and stents who presented to the emergency room with altered mental status, facial droop and slurred speech. He also got weakness in the arms. He had recent Covid infection diagnosed on January 08. He was readmitted to the hospital with altered mental status on January 19. At that time he was discharged home and has came back with altered mental status again. Cardiology was consulted because he had elevated troponin level to 85. Trended down on this recheck and is to 79. Denies any chest pain. No shortness of breath at this time. Previously there was a plan for coronary angiogram for him however his creatinine has worsened and is 3.2 now. Medical therapy was decided. Recent echocardiogram last week showed borderline low to normal LV systolic function with EF of 50%. Review of Systems Const: Reports: change in appetite, fatigue and change in sleep pattern; Denies: fever(s), chills, body aches or change in weight Eyes: Denies: change in vision ENMT: Reports: nasal discharge; Denies: throat pain, bleeding gums or disequilibrium Card: Reports: palpitations, edema (A little bit) and dyspnea on exertion; Denies: chest pain or syncope Resp: Reports: dyspnea and non-productive cough; Denies: productive cough, wheezing, pain on inspiration or hemoptysis GI: Reports: diarrhea; Denies: abdominal pain, nausea, vomiting, constipation, hematochezia or melena : Reports: other (urine getting darker ); Denies: difficulty urinating Musc: Reports: extremity pain (some pain in his calves) and muscle weakness; Denies: joint swelling Skin/Breast: Denies: rash, pruritus or sores Neuro: Reports: weakness in extremities (general rather than focal), difficulty walking (using walker), confusion, Slurred speech present (transient, now resolved) and difficulty communicating thoughts; Denies: headache(s), numbness in extremities or frequent falls Psych: Denies: anxiety or depression Madi/Lymph: Denies: easy bruising, easy bleeding or petechiae Meds/Allergies Home Medications and Allergies Home Medications Medication Instructions Recorded Confirmed Last Taken Type amlodipine 10 mg tablet 10 mg PO DAILY 11/22/19 01/28/21 01/27/21 History aspirin 81 mg tablet,delayed 81 mg PO DAILY 11/22/19 01/28/21 01/27/21 History release nitroglycerin 0.4 mg sublingual 0.4 mg SUBLINGUAL Q5M PRN 11/22/19 01/28/21 Unknown History tablet docusate sodium [Colace] 100 mg PO BID PRN 12/02/19 01/28/21 04/30/20 History fluticasone propionate [Flonase 1 spray INTRANASAL BID 12/02/19 01/28/21 01/25/21 History Allergy Relief] insulin aspart U-100 [Novolog See Rx Instructions .ROUTE .COMPLEX 12/02/19 01/28/21 Unknown History Flexpen U-100 Insulin] acetaminophen 325 mg tablet 325 mg PO QID PRN 06/13/20 01/28/21 Unknown History finasteride 5 mg tablet 5 mg PO DAILY 07/25/20 01/28/21 01/27/21 History atorvastatin 10 mg tablet 10 mg PO DAILY 11/14/20 01/28/21 01/27/21 History cholecalciferol (vitamin D3) 25 50 mcg PO DAILY cap 12/14/20 01/28/21 01/27/21 History mcg (1,000 unit) capsule glucosamine-chondroitin 250 mg-200 1 tab PO DAILY tab 12/14/20 01/28/21 01/25/21 History mg tablet insulin glargine 100 unit/mL (3 25 unit SUBCUT BEDTIME ml MDD see 12/14/20 01/28/21 01/27/21 History mL) subcutaneous pen pharmacy comment sodium bicarbonate 650 mg PO TID #90 tab 01/14/21 01/28/21 01/27/21 Rx tamsulosin 0.4 mg PO DAILY 01/19/21 01/28/21 01/27/21 History isosorbide mononitrate 30 mg 30 mg PO DAILY #30 tab 01/23/21 01/28/21 01/27/21 Rx tablet,extended release 24 hr isosorbide mononitrate 60 mg 60 mg PO DAILY #30 tab 01/23/21 01/28/21 01/27/21 Rx tablet,extended release 24 hr Allergies Allergy/AdvReac Type Severity Reaction Status Date / Time allopurinol Allergy ALGY-Rash Verified 01/08/21 19:28 Iodinated Contrast Media Allergy ALGY-Hives Verified 01/08/21 19:28 metformin Allergy ADR-Fatigue Verified 01/08/21 19:28 d PFSH Acute PFSH: Medical History ASHD (arteriosclerotic heart disease) BPH loc w urin obs/LUTS Carotid stenosis, bilateral CKD (chronic kidney disease) CLL (chronic lymphocytic leukemia) Complex renal cyst COVID-19 (~12/2020) COVID-19 vaccine administered (~12/2020) completed series in December 2020 Diabetes Dyslipidemia HTN (hypertension) Surgical History H/O removal of testicle S/P appendectomy S/P CABG (coronary artery bypass graft) S/P PTCA (percutaneous transluminal coronary angioplasty) Status cardiac pacemaker Family History Mother , in her 70's Diabetes CAD (coronary artery disease) Father , at age 69 CAD (coronary artery disease) Hypertension Other Stroke Social History Alcohol intake: current Alcohol intake frequency: holidays/special occasions only Household members: spouse Marital status: Current occupational status: retired Vitals/I&O/Wt Last Vital Signs Temp 98.1 F 01/28/21 06:30 Pulse 85 01/28/21 07:24 Resp 25 H 01/28/21 07:24 BP 165/86 01/28/21 06:30 Pulse Ox 97 01/28/21 07:24 Weight last 48 hrs Weight 223 lb Physical Exam Narrative: EXAM NARRATIVE: GENERAL: Patient is alert, awake and oriented x3. [] NECK: No jugular vein distension. [] HEENT: No cyanosis. No icterus. No pallor. [] HEART: Regular S1 and S2. No murmur, rub or gallop. [] LUNGS: Clear to auscultate bilaterally. [] ABDOMEN: Soft, nontender and nondistended. Positive bowel sounds. No guarding, rebound or tenderness. [] CENTRAL NERVOUS SYSTEM: Grossly nonfocal. [] EXTREMITIES: Lower extremities with 1+ edema bilaterally. Pulses palpable in the lower extremities, both dorsalis pedis and posterior tibial. [] A&P Assessment and plan (1) Acute kidney injury superimposed on chronic kidney disease: Status: Acute (2) Elevated troponin: Status: Acute (3) Acute alteration in mental status: Status: Acute (4) Weakness: Status: Acute (5) S/P CABG (coronary artery bypass graft): Status: Chronic (6) HTN (hypertension): Status: Chronic (7) ASHD (arteriosclerotic heart disease): Status: Chronic (8) Status cardiac pacemaker: Status: Chronic Patient has presented with neurological symptoms. Troponin was elevated however second set of troponin has trended down. He is chest pain-free at this time. Recent echocardiogram showed borderline low to normal EF of 50%. EKG does not show acute abnormalities. This is likely secondary to demand ischemia in the setting of SHAYLA on CKD and creatinine of 3.2. At this time we will medically manage him. No further testing needed at this recent echocardiogram had showed borderline low to normal LVEF. Continue aspirin and statin. Thank you for involving us with the care of this patient. We will continue to follow. Please call with questions Coding Level of Care Code Acute Polisher Implant for g Fwd Diagnoses Acute kidney injury superimposed on chronic kidney disease N17.9; N18.9 Elevated troponin R77.8 Acute alteration in mental status R41.82 Weakness R53.1 S/P CABG (coronary artery bypass graft) Z95.1 HTN (hypertension) I10 ASHD (arteriosclerotic heart disease) I25.10 Status cardiac pacemaker Z95.0
[2021-01-28] MEDS: atorvastatin 40 mg Tablet 10 MG PO (11:37)
[2021-01-28] MEDS: isosorbide mononitrate ER 60 mg Tablet PO (11:37)
[2021-01-28] MEDS: amlodipine 10 mg Tablet PO (11:38)
[2021-01-28] MEDS: finasteride 5 mg Tablet PO (11:50)
[2021-01-28] MEDS: tamsulosin 0.4 mg Capsule PO (11:50)
[2021-01-28 11:52] LABS: Glucose Point of Care 75 mg/dL (70-110)
[2021-01-28] MEDS: sodium chloride 0.9% 1,000 ML 50 ML IV (12:30)
--- NOTE | 2021-01-28 12:34 | ECG_ITS ---
[facility] Test Date: 2021-01-28 Pat Name: Valente Renae Department: Room: 104 Gender: Male Map Editor: : 1945 Requested By: Miranda Pedraza Order Number: [id number] Helen MD: Alex De Anda M.D. Measurements Intervals Omega Rate: 96 P: 30 RI: 197 QRS: -56 QRSD: 125 T: 129 QT: 378 QTc: 479 Interpretive Statements SINUS RHYTHM WITH OCCASIONAL VENTRICULAR PREMATURE COMPLEXES WITH OCCASIONAL SUPRAVENTRICULAR PREMATURE COMPLEXES POSSIBLE RIGHT VENTRICULAR CONDUCTION DELAY [RSR (QR) IN V1/V2] LEFT VENTRICULAR HYPERTROPHY AND ST-T CHANGE [VOLTAGE CRITERIA PLUS ST/T ABNORMALITY] INFERIOR MYOCARDIAL INFARCTION [40+ ms Q WAVE AND/OR ST/T ABNORMALITY IN II/aVF], OF INDETERMINATE AGE ANTEROLATERAL MYOCARDIAL INFARCTION [40+ ms Q WAVE IN I/aVL/V3-V6], OF INDETERMINATE AGE Compared to ECG 01/28/2021 06:39:01 Ventricular premature complex(es) now present First degree AV block no longer present Electronically Signed On 01-29-2021 17:40:00 CDT by Alex De Anda M.D. [id number]
[2021-01-28] MEDS: cefTRIAXone 1,000 MG in sodium chloride 0.9% (plus) 50 ML 100 MG IV (13:08)
[2021-01-28 13:35] LABS: D Dimer 2.45 ug/mIFEU (0-0.59)
[2021-01-28 14:01] LABS: Troponin 5 6HR Delta -57.7 ng/L (0-12)
[2021-01-28 14:03] LABS: Troponin 5 6HR 231.3 ng/L (0-15)
[2021-01-28] MEDS: sodium bicarbonate 650 mg Tablet PO ×2 (15:25→21:35)
--- NOTE | 2021-01-28 16:03 | PC.CHAP ---
Pastoral Care Encounter/Spiritual Assessment Type of Contact [] Declined small wind energy installer visit [] Patient/Family/Request visit [] Outpatient visit [] Follow-up visit [] Physician referral [] Code/Alert [XX] Routine visit [] Staff referral [] Actively dying [XX] Patient sleeping [] Family support [] [] Out of room [] Palliative care [] [] Receiving care in room [] Pre-surgical visit [] Trauma [] Long length of stay [] ICU visit [] Other: Relational/Emotional Strength [] Patient feels connected with others/family/visitors/staff [] Distress [] Loneliness/isolation [] Abandonment Spirituality of Patient [] Person of Trinh [] Attends Gnosticism of their Trinh [] Believes in Prayer [] Reads Bible or Adventist materials [] There are Spiritual issues to be addressed Lead Software Qa Engineer Interventions [] Prayer [] Active listening [] Non-anxious presence [] Spiritual/emotional support [] Crisis/trauma care [] Spiritual counseling [] Bereavement support [] Provided bereavement packet [] Provided Bible/devotional materials [] Provided toy/stuffed animal, coloring book to patient or family member [] Provided Communion [] Anointing/[place] [] Salvation [] Completed spiritual assessment [] Other: Impact on Illness or Injury [] Angry [] Fearful [] Anxious [] Often cries [] Exhaustion [] Unable to work [] Unable to attend hindu [] Unable to walk/stand [] Unable to read [] Unable to drive [] Unable to eat/drink [] Unable to sleep [] Unable to be with family [] Patient intubated [] Other: Summary Time spent with patient
[2021-01-28 17:11] LABS: Glucose Point of Care 102 mg/dL (70-110)
[2021-01-28] MEDS: fluticasone nasal spray 16gm Btl 1 SPRAY INTRANASAL (18:15)
[2021-01-28 18:16] LABS: LAB Peripheral Smear Sent for Review
--- NOTE | 2021-01-28 19:21 | PC.NURSE ---
Shift Note Frequent safety and comfort rounds continue. Orders and/or nursing care completed as indicated. Patient monitored for response to intervention and treatment(s). Education provided includes[zosyn]. Patient and/or litigation claim representative verb understanding of instructions]. pt remains alert and oriented.Will continue to monitor.
[2021-01-28] MEDS: hyDROXYzine 25 mg Capsule PO (21:35)
[2021-01-28] MEDS: insulin glargine 100 units/1 mL 15 UNIT SUBCUT (22:15)
[2021-01-29 03:27] VITALS: BP 124/69; PULSE 87; RESP 20; TEMP 36.6; O2SAT 92
[2021-01-29 06:00] VITALS: PULSE 92
--- NOTE | 2021-01-29 06:19 | PC.NURSE ---
Shift Note Frequent safety and comfort rounds continue. Orders and/or nursing care completed as indicated. Patient monitored for response to intervention and treatment(s). Education provided includes Visteril for sleep. Patient and/or chain sales representative verbalized understanding. Patient had periods of confusion which were easily redirected during the night. No s/s of of other neuro-deficits observed. Will continue to monitor.
[2021-01-29 06:23] LABS: Glucose Point of Care 80 mg/dL (70-110)
[2021-01-29 06:27] LABS: Hematocrit 33.8 % (42.0-52.0); Hemoglobin 10.7 g/dL (11.7-16.6); Mean Corpuscular HGB Conc 31.7 g/dL (30.0-36.0); Mean Corpuscular Hemoglobin 27.4 pg (28.0-34.0); Mean Corpuscular Volume 86.4 fL (80-94); Mean Platelet Volume 10.6 fL (7.4-10.4); Platelet Count 68 10^3/cmm (130-400); Red Blood Count 3.91 10^6/uL (4.1-5.3); Red Cell Distribution Width 15.9 % (12.1-15.1); White Blood Count 11.8 10^3/uL (4.0-10.0)
[2021-01-29 06:48] LABS: Chol HDL Ratio 2.27 mg/dL (1.0-5.00); Cholesterol 102 mg/dL (0-200); HDL Cholesterol 45 mg/dL (60-100); LDL Cholesterol Calculated 34 mg/dL (50-129); LDL HDL Ratio 0.76 RATIO (0.00-3.22); Triglycerides 116 mg/dL (0-150)
[2021-01-29 06:54] LABS: Anion Gap 13.8 (5-19); Blood Urea Nitrogen 38 mg/dL (8-23); Calcium 8.4 mg/dL (8.5-10.5); Carbon Dioxide 24 mmol/L (22-29); Chloride 99 mmol/L (98-107); Glucose 76 mg/dL (65-115); Magnesium 1.6 mg/dL (1.7-2.3); Osmolality Calculated 284 mOsm/kg (285-295); Phosphorus 2.1 mg/dL (2.5-4.5); Potassium 3.8 mmol/L (3.5-5.1); Sodium 133 mmol/L (136-145)
--- NOTE | 2021-01-29 07:29 | PM.PN ---
Subjective Subjective: Interval history: Patient is doing well. Denies complaints of chest pain. His neurological symptoms have improved. Vitals/I&O/Wt Last Vital Signs Temp 98 F 01/29/21 03:27 Pulse 92 01/29/21 06:00 Resp 20 H 01/29/21 03:27 BP 124/69 01/29/21 03:27 Pulse Ox 92 01/29/21 03:27 01/28/21 01/29/21 01/29/21 22:59 06:59 14:59 Intake Total 50 / 410 100 / 510 Output Total 275 / 475 800 / 1275 Balance -225 / -65 -700 / -765 Weight last 48 hrs Weight 225 lb Weight 224 lb Weight 223 lb Physical Exam Narrative: EXAM NARRATIVE: GENERAL: Patient is alert, awake and oriented x3. [] NECK: No jugular vein distension. [] HEENT: No cyanosis. No icterus. No pallor. [] HEART: Regular S1 and S2. No murmur, rub or gallop. [] LUNGS: Clear to auscultate bilaterally. [] ABDOMEN: Soft, nontender and nondistended. Positive bowel sounds. No guarding, rebound or tenderness. [] CENTRAL NERVOUS SYSTEM: Grossly nonfocal. [] EXTREMITIES: Lower extremities with 1+ edema bilaterally. Pulses palpable in the lower extremities, both dorsalis pedis and posterior tibial. [] Data : 01/29/21 05:40 01/29/21 05:40 A&P Assessment and plan (1) Acute kidney injury superimposed on chronic kidney disease: Status: Acute (2) Elevated troponin: Status: Acute (3) Acute alteration in mental status: Status: Acute (4) Weakness: Status: Acute (5) S/P CABG (coronary artery bypass graft): Status: Chronic (6) HTN (hypertension): Status: Chronic (7) ASHD (arteriosclerotic heart disease): Status: Chronic (8) Status cardiac pacemaker: Status: Chronic She had presented with neurological symptoms. He was chest pain-free however troponins were elevated. Second set of troponins trended down. His SHAYLA on CKD has improved today and creatinine is 2.6. His recent echocardiogram showedBorderline low LVEF. No further cardiac testing at this time.He was scheduled for coronary angiogram for tomorrow as outpatient however we will hold off on it given his kidney function and rest of the medical issues going on. Continue aspirin and statin. Thank you for involving us with the care of this patient. Patient is ready to be discharged from cardiology standpoint. Please call with questions Attestations Medical Necessity Statement*: Care not expected to cross 2 midnights. Coding Level of Care Code Acute Obstetrics And Gynecology Professor for [place] Fwd Diagnoses Acute kidney injury superimposed on chronic kidney disease N17.9; N18.9 Elevated troponin R77.8 Acute alteration in mental status R41.82 Weakness R53.1 S/P CABG (coronary artery bypass graft) Z95.1 HTN (hypertension) I10 ASHD (arteriosclerotic heart disease) I25.10 Status cardiac pacemaker Z95.0
[2021-01-29 07:31] VITALS: BP 140/71; PULSE 86; RESP 18; O2SAT 98
[2021-01-29 08:21] LABS: Slide Review Slide Review Perform
[2021-01-29 08:37] LABS: Absolute Eosinophils 0.3 10^3/cmm (0.0-0.7); Eosinophils 3 %; Lymphocytes 29 %; Lymphocytes Absolute 4.4 10^3/cmm (1.2-3.4); Monocytes Absolute 0.6 10^3/cmm (0.1-0.6); Segmented Neutrophils 51 %; Total Cells Counted 100 (0-100)
[2021-01-29 08:38] LABS: Anisocytosis 1+; Platelet Estimate Decreased (Normal); Poikilocytosis Trace; Smudge Cells 1+
[2021-01-29 08:54] LABS: Blastocytes 4 % (0-0)
[2021-01-29] MEDS: aspirin 81 mg EC Tablet PO (09:13)
[2021-01-29] MEDS: finasteride 5 mg Tablet PO (09:13)
[2021-01-29] MEDS: amlodipine 10 mg Tablet PO (09:13)
[2021-01-29] MEDS: sodium bicarbonate 650 mg Tablet PO (09:13)
[2021-01-29] MEDS: tamsulosin 0.4 mg Capsule PO (09:13)
[2021-01-29] MEDS: isosorbide mononitrate ER 60 mg Tablet PO (09:13)
[2021-01-29] MEDS: atorvastatin 40 mg Tablet 20 MG PO (09:13)
[2021-01-29] MEDS: fluticasone nasal spray 16gm Btl 1 SPRAY INTRANASAL (09:14)
--- NOTE | 2021-01-29 09:54 | PC.CHAP ---
Pastoral Care Encounter/Spiritual Assessment Type of Contact [] Declined entry level sales consultant visit [] Patient/Family/Request visit [] Outpatient visit [] Follow-up visit [] Physician referral [] Code/Alert [] Routine visit [] Staff referral [] Actively dying [] Patient sleeping [] Family support [] [] Out of room [] Palliative care [] [] Receiving care in room [] Pre-surgical visit [] Trauma [] Long length of stay [] ICU visit [] Other: Relational/Emotional Strength [] Patient feels connected with others/family/visitors/staff [] Distress [] Loneliness/isolation [] Abandonment Spirituality of Patient [] Person of Trinh [] Attends Temple of their Trin[place] [] Believes in Prayer [] Reads Bible or Alevism materials [] There are Spiritual issues to be addressed Pediatric Sports Medicine Specialist Interventions [x] Prayer [] Active listening [] Non-anxious presence [] Spiritual/emotional support [] Crisis/trauma care [] Spiritual counseling [] Bereavement support [] Provided bereavement packet [] Provided Bible/devotional materials [] Provided toy/stuffed animal, coloring book to patient or family member [] Provided Communion [] Anointing/[place] [] Salvation [x] Completed spiritual assessment [] Other: Impact on Illness or Injury [] Angry [] Fearful [] Anxious [] Often cries [] Exhaustion [] Unable to work [] Unable to attend mosque [] Unable to walk/stand [] Unable to read [] Unable to drive [] Unable to eat/drink [] Unable to sleep [] Unable to be with family [] Patient intubated [] Other: Summary Time spent with patient
[2021-01-29] MEDS: sodium chloride 0.9% 1,000 ML 50 ML IV (11:01)
[2021-01-29] MEDS: clopidogrel 75 mg Tablet PO (11:47)
--- NOTE | 2021-01-29 11:47 | PC.NURSE ---
Patient refused to take plavix reporting his doctor took him off that about [address] barreto of concerns mary lou spoke with patient and patient then agree to taking plavix
--- NOTE | 2021-01-29 11:58 | P.DS_ITS ---
Discharge Providers Date of Admission: 01/28/21 08:32 Date of Discharge: January 29, 2021 Attending Provider at Admission: Miranda Pedraza MD Attending Provider at Discharge: Trenton Munson MD Primary Care Provider: Alejandro Macias MD Diagnoses at Discharge Discharge Diagnosis (1) Acute kidney injury superimposed on chronic kidney disease: Status: Acute (2) Elevated troponin: Status: Acute (3) Acute alteration in mental status: Status: Acute (4) Weakness: Status: Acute (5) S/P CABG (coronary artery bypass graft): Status: Chronic (6) HTN (hypertension): Status: Chronic (7) ASHD (arteriosclerotic heart disease): Status: Chronic (8) Status cardiac pacemaker: Status: Chronic Reason for Visit Reason for Visit: [facility] Hospital Course Hospital Course This is a 75-year-old female with a past medical history of CAD status post CABG, hypertension, CLL, chronic kidney disease, insulin-dependent type 2 diabetes mellitus, carotid artery disease, CAD status post stent, recent history of Covid infection, recent history of multiple hospital admissions for altered mental status, BPH, who presents to [facility] due to altered mental status Patient was admitted to [facility] for altered mental status, some component related to a urinary tract infection, treated with inpatient antibiotics, discharged on Bactrim cultures are pending on discharge. However he had recurrent complaints of slurring of his speech, right-sided facial droop, right hand weakness, patient told me that this has happened 5 times in the last 2 weeks, in the past this was thought to be secondary to medication side effects, his NIH stroke scale was 0 on admission, CT of the head did not show acute stroke or bleed, patient was not a candidate for CTA given his creatinine, is not a candidate for an MRI given his pacemaker. patient was monitored as inpatient, his NIH stroke scale remained 0, remained neurologically intact, following all commands, no focal neurologic deficits, he was managed with aspirin, statin, Plavix. Likely patient has developed recurrent TIA episodes, will be discharged on aspirin and Plavix dual antiplatelet therapy for 21 days, followed by aspirin, statin 40 mg, with close follow-up with neurology as outpatient. Patient's carotid artery ultrasound did show moderate stenosis of between 50 and 60% bilateral common carotid artery, mild atheromatous plaque not resulting in hemodynamically significant stenosis of bilateral internal carotid arteries, peak systolic velocities suggesting hemodynamic significant stenosis of the bilateral external carotid arteries. Patient was also found to have elevated troponins during his hospitalization, no complaints of chest pain, no significant EKG changes, recent echocardiogram showed a low normal left ventricular ejection fraction, cardiology was consulted, recommended medical management, with close follow-up with cardiology as outpatient. Patient also had thrombocytopenia during his hospitalization, does have a history of thrombocytopenia in the past, had thrombocytopenia as loss hospitalization likely secondary to iburtinib, HIT panel was ordered, did receive heparin products last hospitalization will have [facility] recheck CBC tomorrow, will have patient follow with Dr. Mann as outpatient Physical Exam Const: COMMON NORMALS: no acute distress and patient oriented x3 Eye: COMMON NORMALS: Equal, round and reactive pupils present and EOMs intact bilaterally GENERAL EYE: appearance normal, both eyes and all related structures PUPIL: Yes Equal, round and reactive pupils present Neck/C-Spine: COMMON NORMALS: no JVD Resp: COMMON NORMALS: normal respiratory effort, No retractions, No use of accessory muscles and clear to auscultation bilaterally AUSCULTATION: clear to auscultation bilaterally Cardio: COMMON NORMALS: no JVD, regular rate, regular rhythm, S1 normal heart sound present, S2 normal heart sound present, No gallops present (Cardio), No clicks present (Cardio) and No murmurs present (Cardio) RATE: regular rate RHYTHM: regular rhythm HEART SOUNDS: S1 normal heart sound present and S2 normal heart sound present GI: COMMON NORMALS: Normal to inspection, nondistended, normoactive bowel sounds present, Soft to palpation, non-tender and No hepatosplenomegaly present PALPATION: Yes Soft to palpation and Yes No hepatosplenomegaly present Extremity: COMMON NORMALS: no pedal edema Neuro: COMMON NORMALS: patient oriented x3, CN's II-XII intact bilaterally, moves all extremities and no focal motor deficits Psych: COMMON NORMALS: mental status grossly normal, Normal thought process present and cooperative THOUGHT PROCESS: Normal thought process present Discharge Data Data Completed and Pending: Completed Studies During Hospitalization Category Date Time Status CT head wo con* [id number] Urgent Cat Scan 01/28/21 06:50 Completed CV carotid duplex BI* [id number] Routine Ultrasound 01/28/21 10:19 [place] [id number] Routin e Ultrasound 01/28/21 10:19 Completed Pending at discharge Category Date Time Status CT angio headneck * [id number] Rout ine Cat Scan 01/29/21 09:52 Ordered Heparin Induced T hrombocytopen Rout ine Lab 01/28/21 13:01 Received Urine Culture Sta t Lab 01/28/21 08:02 Results Labs from last 24 hours 01/29/21 01/29/21 01/29/21 06:17 05:40 05:40 WBC 11.8 H RBC 3.91 L Hgb 10.7 L Hct 33.8 L MCV 86.4 MCH 27.4 L MCHC 31.7 RDW 15.9 H Plt Count 68 L MPV 10.6 H Lymph % (Auto) Not Reportable [place] % (Auto) Not Reportable Lymph # (Auto) Not Reportable [place] # (Auto) Not Reportable Total Counted 100 Atypical Lymphs % 8.0 H Absolute Neutrophi ls 6.0 Segmented Neutroph ils 51 Abs Segm Neuts (Ma n) 6.0 Band Neutrophils 0.0 Abs Band Neuts (Ma n) 0.0 Absolute Lymphocyt es 4.4 H Lymphocytes (Manua l) 29 Monocytes (Manual) 5.0 Absolute Monocytes 0.6 Eosinophils (Manua l) 3 Absolute Eosinophi ls 0.3 Basophils (Manual) 0.0 Absolute Basophils 0.0 Blast Cells 4 H* Smudge Cells 1+ H Platelet Estimate Decreased Poikilocytosis Trace Anisocytosis 1+ H Heparin Require Pa t D-Dimer Sodium Potassium Chloride Carbon Dioxide Anion Gap BUN Creatinine GFR Calculation Glucose POC Glucose 80 Calculated Osmolal ity Calcium Phosphorus Magnesium Troponin T Hi Sens 6Hr Troponin T Hi Sens 6Hr Delta Triglycerides 116 Cholesterol 102 LDL Cholesterol, C alc 34 L HDL Cholesterol 45 L LDL/HDL Ratio 0.76 Cholesterol/HDL Ra daron 2.27 Heparin-induced Ab UF Heparin Low Dos e 1 UF Heparin Low Dos e 2 UF Heparin High Do se ARNULFO Unfract Hepari n 01/29/21 01/28/21 01/28/21 05:40 16:59 13:01 WBC RBC Hgb Hct MCV MCH MCHC RDW Plt Count MPV Lymph % (Auto) [place] % (Auto) Lymph # (Auto) [place] # (Auto) Total Counted Atypical Lymphs % Absolute Neutrophi ls Segmented Neutroph ils Abs Segm Neuts (Ma n) Band Neutrophils Abs Band Neuts (Ma n) Absolute Lymphocyt es Lymphocytes (Manua l) Monocytes (Manual) Absolute Monocytes Eosinophils (Manua l) Absolute Eosinophi ls Basophils (Manual) Absolute Basophils Blast Cells Smudge Cells Platelet Estimate Poikilocytosis Anisocytosis Heparin Require Pa t Pending D-Dimer Sodium 133 L Potassium 3.8 Chloride 99 Carbon Dioxide 24 Anion Gap 13.8 BUN 38 H Creatinine 2.6 H GFR Calculation Not Reportable Glucose 76 POC Glucose 102 Calculated Osmolal ity 284 L Calcium 8.4 L Phosphorus 2.1 L Magnesium 1.6 L Troponin T Hi Sens 6Hr Troponin T Hi Sens 6Hr Delta Triglycerides Cholesterol LDL Cholesterol, C alc HDL Cholesterol LDL/HDL Ratio Cholesterol/HDL Ra daron Heparin-induced Ab Pending UF Heparin Low Dos e 1 Pending UF Heparin Low Dos e 2 Pending UF Heparin High Do se Pending ARNULFO Unfract Hepari n Pending 01/28/21 01/28/21 13:01 13:01 WBC RBC Hgb Hct MCV MCH MCHC RDW Plt Count MPV Lymph % (Auto) [place] % (Auto) Lymph # (Auto) [place] # (Auto) Total Counted Atypical Lymphs % Absolute Neutrophi ls Segmented Neutroph ils Abs Segm Neuts (Ma n) Band Neutrophils Abs Band Neuts (Ma n) Absolute Lymphocyt es Lymphocytes (Manua l) Monocytes (Manual) Absolute Monocytes Eosinophils (Manua l) Absolute Eosinophi ls Basophils (Manual) Absolute Basophils Blast Cells Smudge Cells Platelet Estimate Poikilocytosis Anisocytosis Heparin Require Pa t D-Dimer 2.45 H Sodium Potassium Chloride Carbon Dioxide Anion Gap BUN Creatinine GFR Calculation Glucose POC Glucose Calculated Osmolal ity Calcium Phosphorus Magnesium Troponin T Hi Sens 6Hr 231.3 H Troponin T Hi Sens 6Hr Delta -57.7 L Triglycerides Cholesterol LDL Cholesterol, C alc HDL Cholesterol LDL/HDL Ratio Cholesterol/HDL Ra daron Heparin-induced Ab UF Heparin Low Dos e 1 UF Heparin Low Dos e 2 UF Heparin High Do se ARNULFO Unfract Hepari n Vitals: Last Vital Signs Temp 98 F 01/29/21 03:27 Pulse 86 01/29/21 07:31 Resp 18 01/29/21 07:31 BP 140/71 01/29/21 07:31 Pulse Ox 98 01/29/21 07:31 Discharge Plan Discharge Patient Disposition: Xfer Short-Term Hosp Condition: Stable Prescriptions: New clopidogrel 75 mg Tablet 75 mg PO DAILY 20 Days Qty: 20 RF: 0 sulfamethoxazole-trimethoprim [Bactrim DS] 800-160 mg tablet 1 tab PO BID 3 Days Qty: 6 RF: 0 atorvastatin 40 mg Tablet 40 mg PO DAILY 30 Days Qty: 30 RF: 0 Continued nitroglycerin [Nitrostat] 0.4 mg tablet, sublingual 0.4 mg SUBLINGUAL Q5M PRN (Reason: Chest Pain) RF: 0 amlodipine 10 mg tablet 10 mg PO DAILY RF: 0 aspirin [Aspir-81] 81 mg tablet,delayed release (DR/EC) 81 mg PO DAILY RF: 0 cholecalciferol (vitamin D3) 25 mcg (1,000 unit) capsule 50 mcg PO DAILY RF: 0 glucosamine-chondroitin [Osteo Bi-Flex] 250-200 mg tablet 1 tab PO DAILY RF: 0 acetaminophen 325 mg tablet 325 mg PO QID PRN (Reason: Pain) RF: 0 finasteride 5 mg tablet 5 mg PO DAILY RF: 0 isosorbide mononitrate 60 mg tablet extended release 24 hr 60 mg PO DAILY Qty: 30 RF: 3 sodium bicarbonate 650 mg tablet 650 mg PO TID Qty: 90 RF: 0 tamsulosin 0.4 mg capsule 0.4 mg PO DAILY RF: 0 docusate sodium [Colace] 100 mg Capsule 100 mg PO BID PRN (Reason: Constipation) RF: 0 fluticasone propionate [Flonase Allergy Relief] 50 mcg/actuation [place],Suspension 1 spray INTRANASAL BID RF: 0 insulin aspart U-100 [Novolog Flexpen U-100 Insulin] 100 unit/mL (3 mL) Insulin Pen See Rx Instructions .ROUTE .COMPLEX RF: 0 Changed Lantus Solostar U-100 Insulin 100 unit/mL (3 mL) insulin pen 15 unit SUBCUT BEDTIME MDD see pharmacy comment Qty: 0 RF: 0 Discontinued atorvastatin 10 mg tablet 10 mg PO DAILY RF: 0 isosorbide mononitrate 30 mg tablet extended release 24 hr 30 mg PO DAILY Qty: 30 RF: 3 Discharge Orders: Discharge Order (Routine); Ordered 01/29/21 Ordered By: Trenton Munson Referrals: [facility] [Outside] Julia Vargas MD [Physician] - 1 month Alex De Anda M.D [Physician] - 7-10 days Gagandeep Mann MD [Hospitalist] - 1 week (thrombocytopenia) Discharge Diet: Cardiac Discharge Activity: Resume usual activity Activity Restrictions/Additional Instructions: -Please take aspirin and Plavix together for the next 20 days, stop Plavix after 20 days -Please follow-up with cardiology in 1 month -Please take antibiotics for UTI -Follow-up with cardiology as outpatient Discharge Attestations Time Spent in Discharge Care*: less than 30 min Quality Metrics Clinical Quality Measures During this hospital stay, did patient experience: None Coding Level of Care Code Acute Chg FW DC note Diagnoses Acute kidney injury superimposed on chronic kidney disease N17.9; N18.9 Elevated troponin R77.8 Acute alteration in mental status R41.82 Weakness R53.1 S/P CABG (coronary artery bypass graft) Z95.1 HTN (hypertension) I10 ASHD (arteriosclerotic heart disease) I25.10 Status cardiac pacemaker Z95.0
[2021-01-29 12:49] VITALS: BP 140/71; PULSE 86; RESP 18; O2SAT 98
--- NOTE | 2021-01-29 13:04 | PC.NURSE ---
Discharge Note Patient discharged to doctors hospital bed via private vehicle accompanied by spouse. Discharge instructions reviewed with patient and/or membership sales representative. Mobile pharmacy medications and/or prescriptions provided. Belongings/home medications returned.
[2021-01-29 18:52] LABS: Glucose Point of Care 165 mg/dL (70-110)
[2021-02-01 14:27] LABS: Heparin Induced Platelet AB NEGATIVE (NEGATIVE); Patient O.D 0.016
[2021-02-01 21:13] LABS: UFH High Dose, 100 IU/ML 0 % release; UFH Low Dose, 0.1 IU/ML 0 % release; UFH Low Dose, 0.5 IU/ML 0 % release; UFH SRA Result NEGATIVE (NEGATIVE)
[2021-02-09 07:14] LABS: Miscellaneous Test See Scanned Lab Rpt
== END 2021-01-29 13:04 | disposition swing bed (61) | DRG 683 ==
LOC: ER 07:25 → CSU 09:56
PROVIDERS: Admitting Provider Hospitalist; Emergency Provider Emergency Medicine; PCP Family Medicine; Visit Provider Family Medicine
DX: N17.9 Acute kidney failure, unspecified (principal); G45.9 Transient cerebral ischemic attack, unspecified; C91.10 Chronic lymphocytic leukemia of B-cell type not having achieved remission; E87.1 Hypo-osmolality and hyponatremia; N39.0 Urinary tract infection, site not specified; Z86.16 Personal history of COVID-19; E78.5 Hyperlipidemia, unspecified; E11.22 Type 2 diabetes mellitus with diabetic chronic kidney disease; I12.9 Hypertensive chronic kidney disease with stage 1 through stage 4 chronic kidney disease, or unspecified chronic kidney disease; N18.32 Chronic kidney disease, stage 3b; I25.10 Atherosclerotic heart disease of native coronary artery without angina pectoris; Z95.1 Presence of aortocoronary bypass graft; Z95.5 Presence of coronary angioplasty implant and graft; N40.1 Benign prostatic hyperplasia with lower urinary tract symptoms; Z95.0 Presence of cardiac pacemaker; D69.6 Thrombocytopenia, unspecified; N28.1 Cyst of kidney, acquired; Z66 Do not resuscitate; Z79.4 Long term (current) use of insulin; Z79.82 Long term (current) use of aspirin
CPT/HCPCS: 36415; 36416; 70450; 71045; 80048; 80053; 80061; 80500; 81001; 82550; 82962; 83690; 83735; 84100; 84484; 85007; 85025; 85378; 85610; 85730; 87086; 88184; 88185; 92523; 92610; 93005; 93880; 93970; 97161; 97166; 97530; 97535; 99283; 99285; J0696; J1815; J7030

== ENCOUNTER 2021-02-12 14:06 | Outpatient (CLI) | payer MEDICARE, OTHER, SELFPAY ==
[2021-02-12 15:14] LABS: Basophils # 0.1 10^3/uL (0.0-0.1); Basophils % 0.5 %; Eosinophils # 0.2 10^3/uL (0.0-0.8); Eosinophils % 1.7 %; Hematocrit 31.2 % (42.0-52.0); Hemoglobin 9.7 g/dL (11.7-16.6); Lymphocytes # 8.3 10^3/uL (0.8-4.8); Lymphocytes % 62.4 %; Mean Corpuscular HGB Conc 31.1 g/dL (30.0-36.0); Mean Corpuscular Hemoglobin 28.2 pg (28.0-34.0); Mean Corpuscular Volume 90.7 fl (80-94); Mean Platelet Volume 9.9 fL (7.4-10.4); Monocytes # 1.9 10^3/uL (0.2-0.9); Monocytes % 14.1 %; Neutrophils # 2.79 10^3/uL (1.8-7.7); Neutrophils % 20.9 %; Nucleated Red Blood Cells % 0 %; Platelet Count 197 10^3/cmm (130-400); Red Blood Count 3.44 10^6/uL (4.1-5.3); Red Cell Distribution Width 16.5 % (12.1-15.1); White Blood Count 13.3 10^3/uL (4.0-10.0)
[2021-02-12 15:25] LABS: Alanine Aminotransferase 21 U/L (0-41); Albumin Level 3.6 g/dL (3.5-5.2); Alkaline Phosphatase 98 IU/L (40-130); Aspartate Amino Transferase 16 U/L (0-40); Blood Urea Nitrogen 36 mg/dL (8-23); Calcium 9.8 mg/dL (8.5-10.5); Carbon Dioxide 25 mmol/L (22-29); Chloride 99 mmol/L (98-107); Globulin 2.5 g/dL (1.3-4.6); Glucose 238 mg/dL (65-115); Osmolality Calculated 296 mOsm/kg (285-295); Sodium 135 mmol/L (136-145); Total Bilirubin 0.3 mg/dL (0.15-1.2); Total Protein 6.1 g/dL (6.6-8.7)
[2021-02-12 15:49] LABS: Slide Review Slide Review Perform
--- NOTE | 2021-02-13 07:59 | ONC FU_ITS ---
Dr. Mann Patient Follow-Up Note Patient: Valente Renae Unit #: [id number]: 1945 Dicatated By: Gagandeep Mann M.D.Date of Visit:Feb 12, 2021 Onc Med Follow-up/Prog Note Chief Complaint: Chronic lymphocytic leukemia. History of Present Illness: This is a 75 year-old man with chronic lymphocytic leukemia, Kwok stage III. I had seen him initially in January of 2010 with a mild anemia and thrombocytopenia. At that time, he had been having episodes of low-grade fever with chills and generalized aching. Bone marrow aspiration/biopsy in February of 2010 was mildly hypercellular. It also showed evidence of a monoclonal B-cell lymphoproliferative process consistent with chronic lymphocytic leukemia. It comprised approximately 50% of the marrow cellularity. At that time the leukemia did not appear to be symptomatic, and he was initially just managed with observation. On a followup visit in November 2013 he had reported having 2 more febrile episodes. At that time he was noted to be mildly anemic with hemoglobin 10.7 g and his platelet count was normal at 144,000. His white blood cell count was elevated at 37,000, but that actually was down compared to the study the previous March. His LDH level was significantly elevated at 404/241 units per liter. Bone marrow aspiration/biopsy on 12/22/2013 showed 90 to 100% cellularity with the differential showing 72% lymphocytes. The chromosome analysis showed trisomy [address] scans showed interval splenomegaly with hamzah hepatis lymphadenopathy, the largest measuring 1.8 and 1.9 cm. Also noted was a 9 mm noncalcified pulmonary nodule in the left upper lobe. I had talked to him about the possibility of starting treatment, which he indicated he wanted to put off as long as possible. Followup laboratory studies in December 2013 showed some increase in his lymphocyte count. His hemoglobin was stable and his platelet count was just borderline low. His LDH level had returned to normal, and I opted to continue observation. During subsequent follow-up he continued to have occasional episodes of fever/chills, sometimes associated with nausea/vomiting and diarrhea. He was hospitalized again in January 2015. A subsequent HIDA scan showed no evidence of biliary obstruction, but the gallbladder ejection fraction was low at 19%. More recently he had been having pain in the right flank and right side of the back. He was noted to have a large cyst in the right kidney, and he underwent percutaneous drainage of the cyst on 07/24/2015. That procedure precipitated another spell . I had seen him for a follow-up visit on 08/09/2015. As there was no other obvious explanation for his symptoms, we opted to initiate treatment for the chronic lymphocytic leukemia. He returned on 08/22/2015 to begin cycle one of bendamustine/Rituxan. He did not complete treatment that day because of a mild infusion reaction with the Rituxan. However, with premedication, he was then able to complete his first cycle of treatment on 08/23 and 08/25/2015 with no acute toxicity. However, he subsequently presented with a generalized erythematous, itchy skin eruption. It was undoubtedly a hypersensitivity reaction, most likely to either the Rituxan or to the bendamustine. Allopurinol also was a possibility, though. He was given a short course of systemic steroid followed by topical steroid therapy. He returned 2 days later with swelling in the left arm. Venous Doppler showed features of thrombosis of the left cephalic vein from the anterior cubital fossa to the biceps. Other veins were noted to be patent. As such, I felt there was no definite indication for anticoagulation. On a followup visit in October 2015, the swelling and the skin eruption had resolved. He was feeling much better, and his hemoglobin had increased significantly, to 12.7 g. I did not attempt any further treatment. He was then continued on observation/expectant management. As of his follow-up visit on 08/22/2016 his white blood cell count was just mildly elevated at 17,000 with hemoglobin stable at 13.0 g and platelet count 135,000. He was seen again for a follow-up visit on 12/17/2016. His white blood cell count had increased to 42,000, his hemoglobin was stable at 12.8 g and his platelet count was normal at 148,000. He reported that a week earlier he did experience another episode of nausea/vomiting and chills. Fever was suspected but not documented. At the time of that visit his symptoms had improved significantly, and I opted to just continue with observation. As of his followup visit on 04/23/2017 he had experienced 2 further episodes with fever and nausea/vomiting. Both lasted only a few days and resolved without specific treatment. He had otherwise been feeling good. His white count at that point it increased to 58,000. Hemoglobin/hematocrit levels were stable. The platelet count was mildly decreased at 115,000. He continued observation/expectant management. He was seen for a follow-up visit again on 11/03/2017. At that point his white blood cell count had increased to 76,800 with his hemoglobin mildly decreased to 10.8 g and platelet count mildly decreased at 101,000. He appeared to be getting more overtly symptomatic, and at that point I did recommend that he begin second line treatment with ibrutinib. In preparation for starting the ibrutinib, he began prophylaxis with allopurinol 300 mg daily. He broke out with an erythematous skin eruption after the first dosage, and it was put on hold. He was then given a prescription for Uloric, but that he also stopped after the first dosage because of concerns of side effects. Ultimately, I did opt to treat him prophylactically with rasburicase, as I felt that he would be at very high risk for tumor lysis. He was given a single dose of rasburicase on 02/11/2018. He then started ibrutinib 420 mg daily on 02/12/2018. During subsequent follow-up, his white blood cell count had initially remained stable or slightly increased, but there was some improvement in the hemoglobin/hematocrit levels. As of 06/19/2018 the hemoglobin was 11.5 g with white blood cell count 82,000 and platelet count 133,000. He continued ibrutinib at 420 mg daily. He was seen for a scheduled visit on 09/14/2018. At that time he had multiple complaints including fatigue, excessive somnolence, and some confusion. His blood counts looked okay, but with those changes I did opt to have him stop the ibrutinib. As of his follow-up visit on 10/07/2018 he was feeling somewhat better, and he continued on observation/expectant management. On 11/03/2018 he had reported recurrence of fever/chills and nausea. He was given IV hydration for 2 days, and his symptoms improved. The preceding week he had required IV hydration for similar symptoms. At that point it did appear likely that his CLL had become symptomatic again. On 12/03/2018 he restarted treatment with ibrutinib at a reduced dosage of 280 mg daily. At day 15 he was given an infusion of rasburicase due to an increase in his uric acid level. During further follow-up, there was an increase in his lymphocyte count, as expected, but he was otherwise tolerating the treatment well. I had seen him for a follow-up visit on 01/27/2019. At that point he had developed severe muscle cramping, and I did opt to put his ibrutinib on hold. On 02/14/2019 he was admitted to the hospital after presenting to the emergency room with chest pain. He was hypertensive, and his creatinine at increased to 3.2 mg/dL. He had a slightly elevated troponin, significance of which was uncertain. A nuclear stress test showed some olvin-infarct ischemia, but mild. He had cardiology consultation with Dr. Orellana, and medical management was recommended. At discharge his creatinine had come back down to 2.8 mg/dL. Metoprolol was added to his medication regimen. He was seen for a follow-up visit on 02/24/2019. At that point he was acutely ill with another sick spell , including nausea/vomiting and diarrhea. He was given IV hydration and symptomatic management. His ibrutinib remained on hold. As of his follow-up visit on 03/03/2019 he was feeling better, and at that point he restarted ibrutinib with a further dose reduction to 140 mg daily. As of his follow-up visit in December 2019 there has been some further decline in his lymphocyte count. His other blood counts remained adequate, and he continued the ibrutinib at 140 mg daily. His other medical illnesses include hypertension, hyperlipidemia, type 2 diabetes, and coronary artery disease. He also has chronic kidney disease which has progressed to stage IV. In October 2014 he was admitted to the hospital with complete heart block, and he underwent placement of a permanent pacemaker. INTERIM HISTORY: I had seen him for a follow-up visit on 12/12/2020. At that point he was mildly anemic and also had mild thrombocytopenia. He had experienced a significant decline in his performance status. At least some appear to be related to an injury he had sustained at home. At that point he continued ibrutinib 140 mg daily. On 01/08/2021 he was admitted to the hospital with COVID-19 virus pneumonia. He had a complicated clinical course, requiring 2 subsequent hospitalizations. He was discharged home on 01/29/2021. With the initial hospitalization, I had recommended that they stop his ibrutinib. He is seen now for a follow-up visit. He is starting to feel a little better, but he does give out very quickly and his activity is still very limited. His ECOG score is 3. His appetite is better now. His weight is down 25 pounds since his visit in November. He does not have fever or night sweats. He has a little bit of sinus drainage. He has just occasional cough. He does have some shortness of breath with activity, but his breathing is pretty good now. He does not complain of chest pain. He has been having constipation, but bowel function has been adequate with a laxative. He has no other GI complaints. He has urinary frequency and nocturia. He has been having pain in his shoulders and in his lower rib cage. He does not complain of headache or dizziness. He does have numbness in his lower legs and feet. He complains that he has been having a terrible time sleeping. He has easy bruising, which is chronic. He has had no other bleeding, and he has had no thromboembolic complications. Medications: Aspirin 1 (81 mg) Tablet Oral daily, Atorvastatin Calcium 1 Tablet (of 40 mg) Oral daily, Cholecalciferol 1 (50 mcg) Tablet Oral daily, Clopidogrel Bisulfate 1 Tablet (of 75 mg) Oral daily, Correctol Extra Gentle 1 Capsule (of 100 mg) Oral b.i.d. PRN, Finasteride 1 Tablet (of 5 mg) Oral daily, Flonase 1 (50 mcg/act) Suspension Nasal daily, Glucosamine Chond Cmp Advanced 1 Tablet Oral daily, Isosorbide Mononitrate ER 1 Tablet (of 90 mg) Tablet SR 24 HR Oral daily, Lantus 15 Units (of 100 Units/mL) Subcutaneous daily, Nitroglycerin Tablet, sublingual Sublingual PRN, Nitroglycerin Tablet, sublingual Sublingual PRN, Norvasc 1 (10 mg) Tablet Oral daily, NovoLOG (100 Units/mL) Subcutaneous Take as Directed, Sodium Bicarbonate 1 Tablet Oral q 8 hours, Tamsulosin HCl 1 Capsule Oral daily, Tylenol 2 (325 mg) Tablet Oral q 4 hours PRN Allergies: Allopurinol, Iodine, and Levaquin. Vital Signs: Performed on Feb 12, 2021 16:14 Height - 71.00 in Weight - 228 lbs (LOW) BSA - 2.23 sq.m BMI - 31.80 (HIGH) Temperature - 97.5 F (LOW) Pulse - 105 /min (HIGH) Respiration - 18 /min BP - 124/70 mm(hg) O2 Sat - 97 % Pain - 8 Fatigue - 9 Physical Examination: Constitutional - He appears generally weak, Eyes - Sclerae nonicteric. Conjunctivae clear, ENMT - No lesions noted in the oral cavity, Hematologic/Lymphatic - No cervical, clavicular, or axillary adenopathy, Respiratory - Lungs sound clear with good air movement bilaterally, Cardiovascular - Heart rhythm is regular. There is a II/ systolic murmur. There is no gallop or rub noted, Abdomen - Mildy distended. Liver and spleen are not enlarged. There is no abdominal mass or ascites noted and there is no inguinal adenopathy, Extremities - Mild edema. There are just a few scattered purpuric lesions, Neurologic - No focal neurologic deficits noted. Lab/Imaging: Test performed on Feb 12, 2021 14:24 Sodium 135 mmol/L Potassium 5.0 mmol/L Chloride 99 mmol/L CO2 25 mmol/L Anion Gap 16.0 BUN 36 mg/dL Creatinine 2.8 mg/dL Cr Clearance (Est) 33.7800 mL/min Glucose 238 mg/dL Osmolality - Calculated 296 mOsm/kg Calcium 9.8 mg/dL Protein, Total 6.1 g/dL Albumin 3.6 g/dL Globulin 2.5 g/dL Bilirubin, Total 0.3 mg/dL ALT (SGPT) 21 U/L AST (SGOT) 16 U/L Alkaline Phosphatase 98 IU/L WBC 13.3 10 3/uL RBC 3.44 10 6/uL HGB 9.7 g/dL HCT 31.2 % MCV 90.7 fl MCH 28.2 pg MCHC 31.1 g/dL RDW 16.5 % Platelet Count 197 10 3/cmm MPV 9.9 fL Neutrophils 2.79 10 3/uL Lymphocytes 8.3 10 3/uL Monocytes 1.9 10 3/uL Eosinophils 0.2 10 3/uL Basophils 0.1 10 3/uL Neutrophil % 20.9 % Lymphocyte % 62.4 % Monocyte % 14.1 % Eosinophil % 1.7 % Basophils % 0.5 % NRBC % 0 % CBC Slide Review Slide Review Perform REVIEW AGREES WITH AUTOMATED RESULTS FEW SMUDGE CELLS NOTED Problem List: 1. Chronic lymphocytic leukemia, initially diagnosed in February 2010. 2. Hypertension. 3. Hyperlipidemia. 4. Type II diabetes. 5. Chronic kidney disease. 6. Coronary artery disease. 7. History of complete heart block, requiring placement of permanent pacemaker. Problems Addressed with this Encounter and Plan: Patient with chronic lymphocytic leukemia, initially diagnosed in February 2010. He was initially managed with observation, as he had multiple other medical illnesses and he desired conservative management. During his follow-up he continued to have wide fluctuations in his lymphocyte count, for which I had found no rational explanation. He also had remained mildly anemic. His platelet counts had varied between low normal to mildly decreased. On several occasions his LDH level had been significantly elevated, but it was never consistently elevated. Following his visit in July 2015 I did opt to proceed with a trial of therapy with bendamustine/Rituxan. He had a mild infusion reaction with the initial attempt at the Rituxan infusion, and it was abandoned. He then returned on 08/24/2015 and with steroid premedication he was able to complete cycle 1 of bendamustine/Rituxan with no acute toxicity. He had subsequently presented with generalized erythroderma, consistent with hypersensitivity reaction to his treatment. The skin eruption subsequently resolved. It was never determined with certainty whether the reaction was to Rituxan, to bendamustine, or to allopurinol. However, he did have a very good response to the treatment. As of his follow-up visit on 11/03/2017 he has been showing a gradual increase in his lymphocyte count, and it appeared that his disease was getting symptomatic again. He ulltimately started treatment with ibrutinib 420 mg daily on 02/12/2018. He had a good clinical response, and he initially tolerated it well. However, as of his follow-up visit on 09/14/2018 his ibrutinib was put on hold due to multiple complaints including fatigue, excessive somnolence, and confusion. During subsequent follow-up his blood counts had remained adequately controlled, though he continued to have significant fatigue. On 12/03/2018 he restarted treatment with ibrutinib at a reduced dosage of 280 mg daily. At day 15 he was given an infusion of rasburicase due to an increase in his uric acid level. During further follow-up there was an increase in his lymphocyte count, as expected, but he had no further sick spells or other obvious CLL related symptoms. At his follow-up visit on 01/27/2019 he complained of severe muscle cramping, and his ibrutinib was put on hold. On 02/14/2019 he was admitted to the hospital with chest pain. He was also hypertensive, and his creatinine had increased to 3.2 mg/dL. He was seen by Dr. Orellana, and medical management was recommended. Metoprolol was added to his medication regimen. At discharge his creatinine had come down to 2.8 mg/dL. As of his follow-up visit on 03/03/2019 he restarted ibrutinib with a further dose reduction to 140 mg daily. During follow-up there was an increase in his lymphocyte count, as expected, but that had subsequently stabilized, and during further follow-up the lymphocyte count began to gradually decline. He remained mildly anemic and he continued to have mild thrombocytopenia. As of his follow-up visit in December 2019 his overall clinical status appeared stable, and he continued the ibrutinib at 140 mg daily. During subsequent follow-up he had experienced a significant decline in performance status. This appeared to be due at least in part to an injury he had sustained at home. As of his follow-up visit on 12/12/2020 he was mildly anemic and his platelet count was a little low. He continued ibrutinib at 140 mg daily. On 01/08/2021 he was admitted to the hospital with COVID-19 virus pneumonia. He had a complicated clinical course, but he does appear to be showing recovery now. At this point he still has mild to moderately severe anemia, but his lymphocyte count is just mildly elevated and his platelet count is normal. It is uncertain to what extent the anemia may be due to his recent illness, to the underlying chronic kidney disease, or to the CLL. At least for now I will continue to just follow him off treatment. If there is more clear evidence that the CLL is symptomatic, I will plan to initiate treatment with venetoclax, either as a single agent or possibly in combination with rituximab. I will see him again in 1 month. Signed By: Gagandeep Mann M.D. <<Signature on File>>
== END 2021-02-12 14:07 | disposition home or self-care (01) ==
LOC: ONCMED 14:12
PROVIDERS: PCP Family Medicine; Visit Provider Internal Medicine Medical Oncology
DX: C91.10 Chronic lymphocytic leukemia of B-cell type not having achieved remission (principal); D64.9 Anemia, unspecified; E13.22 Other specified diabetes mellitus with diabetic chronic kidney disease; I12.9 Hypertensive chronic kidney disease with stage 1 through stage 4 chronic kidney disease, or unspecified chronic kidney disease; N18.9 Chronic kidney disease, unspecified; Z79.899 Other long term (current) drug therapy; Z79.4 Long term (current) use of insulin
CPT/HCPCS: 36415; 80053; 85025; 99214

== ENCOUNTER → 2021-03-02 09:51 | Outpatient (BNVA) | payer MEDICARE, OTHER, SELFPAY | PROVIDERS: PCP Family Medicine; Referring Provider Internal Medicine Medical Oncology; Visit Provider Urology | DX: N39.0 Urinary tract infection, site not specified (principal); N40.1 Benign prostatic hyperplasia with lower urinary tract symptoms | CPT/HCPCS: 81003 ==

== ENCOUNTER 2021-03-19 10:54 | Outpatient (CLI) | payer MEDICARE, OTHER, SELFPAY ==
--- NOTE | 2021-03-19 11:12 | CT_ITS ---
WS: [id number] CT HEAD TECHNIQUE: Noncontrast CT of the head obtained from the skullbase to the vertex. CLINICAL INFORMATION: RECENT CVA COMPARISON: CT 02/10 DLP: 925.[address] scans at [facility] use at least one of these dose optimization techniques: automated e xposure control; mA and/or kV adjustment per patient size (includes targeted exams where dose is matc hed to clinical indication); or iterative reconstruction. FINDINGS: No evidence of intracranial hemorrhage or mass effect. Ventricular system and basal cisterns are hendricks nt. Mild small vessel changes with moderate parenchymal volume loss. No extra-axial fluid collections . No evidence of mass or mass effect. Intracranial vascular calcification. Paranasal sinuses and mastoid air cells are well aerated. .Normal visualized soft tissues. CT/CT head wo con* [id number] IMPRESSION: 1. No evidence of intracranial hemorrhage or mass effect. 2. Mild small vessel changes. Moderate parenchymal volume loss. 3. No acute intracranial findings. No significant changes from previous.
== END 2021-03-19 10:55 | disposition home or self-care (01) ==
PROVIDERS: PCP Family Medicine; Visit Provider Family Medicine
DX: Z01.89 Encounter for other specified special examinations (principal)
CPT/HCPCS: 70450

== ENCOUNTER → 2021-04-19 10:19 | Outpatient (BNVA) | payer MEDICARE, OTHER, SELFPAY | PROVIDERS: PCP Family Medicine; Visit Provider Urology | DX: N40.1 Benign prostatic hyperplasia with lower urinary tract symptoms (principal) | CPT/HCPCS: 81003 ==

== ENCOUNTER 2021-05-01 17:16 | Inpatient (IN) | payer OTHER, MEDICARE, SELFPAY ==
[2021-05-01 17:17] VITALS: BP 158/79; PULSE 109; RESP 19; TEMP 39.6; O2SAT 92; BMI 33.0
[2021-05-01] MEDS: calcium gluconate 0.1 gm/mL 10% SDV 10mL 1 GM IVP (17:48)
--- NOTE | 2021-05-01 17:58 | ED_ITS ---
Documented by User: ALL Liu 05/01/21 20:10 HPI - Fever General: Chief Complaint: Fever Stated Complaint: general weakness/ confusion/ fever Time Seen by Provider: 05/01/21 17:58 History of Present Illness: HPI Narrative: 76-year-old male patient comes in with fever. Patient stated that he was starting to get ill 3 days ago. Patient does have some mild confusion but has 103 fever at this time. Patient is alert and responds appropriately to questions. Patient's medical condition includes CLL, CAD, diabetes, hypertension, CKD. MD elicited complaint: fever Review of Systems General: Reports: 10 or more systems reviewed and unremarkable except in HPI and below Const: Reports: fever(s) PFSH ED PFSH: Medical History ASHD (arteriosclerotic heart disease) BPH loc w urin obs/LUTS Carotid stenosis, bilateral CKD (chronic kidney disease) CLL (chronic lymphocytic leukemia) Complex renal cyst COVID-19 (~12/2020) COVID-19 vaccine administered (~12/2020) completed series in December 2020 Diabetes Dyslipidemia HTN (hypertension) Surgical History H/O removal of testicle S/P appendectomy S/P CABG (coronary artery bypass graft) S/P PTCA (percutaneous transluminal coronary angioplasty) Status cardiac pacemaker Family History Mother , in her 70's Diabetes CAD (coronary artery disease) Father , at age 69 CAD (coronary artery disease) Hypertension Other Stroke Social History Alcohol intake: never Household members: spouse Marital status: Current occupational status: retired History of recent travel: No Physical Exam Const: COMMON NORMALS: no acute distress and patient oriented x3 GENERAL APPEARANCE: cooperative ORIENTATION/CONSCIOUSNESS: Yes oriented to person, Yes oriented to place and Yes oriented to time HENMT: COMMON NORMALS: normocephalic, TM's normal bilaterally and Normal external nose present HEAD & SCALP: normal to inspection and normocephalic NOSE: Normal external nose present TYMPANIC MEMBRANE: TM's normal bilaterally MOUTH: Normal oral and palatal mucosa present THROAT: posterior oropharynx normal Eye: GENERAL EYE: appearance normal, both eyes and all related structures Neck/C-Spine: COMMON NORMALS: full ROM Lymph: LYMPHATIC: no lymphadenopathy noted Chest: COMMONS NORMALS: normal inspection of the chest Resp: COMMON NORMALS: normal respiratory effort EFFORT & INSPECTION: Yes able to speak in complete sentences Cardio: COMMON NORMALS: regular rate and regular rhythm RATE: regular rate RHYTHM: regular rhythm GI: COMMON NORMALS: non-tender : COMMON NORMALS: Yes no CVA tenderness BLADDER/KIDNEY EXAM: Yes no CVA tenderness Back/Pelvis: COMMON NORMALS: no CVA tenderness and thoracic and lumbar spine normal to inspection Extremity: COMMON NORMALS: normal to inspection Neuro: COMMON NORMALS: patient oriented x3 and moves all extremities SENSORIUM/ORIENTATION: Yes oriented to person, Yes oriented to place, Yes oriented to time and Yes other (Difficulty with answering some questions) SPEECH: speech normal Psych: COMMON NORMALS: mental status grossly normal and cooperative Skin: COMMON NORMALS: no rashes or lesions noted GENERAL SKIN EXAM: no rashes or lesions noted Course ED course: 1819, reviewed patient with Dr. Chase he assumed care of patient. Vital Signs: Vital signs: Vital Signs Temperature 103.2 F H 05/01/21 17:17 Pulse Rate 117 H 05/01/21 19:31 Respiratory Rate 18 05/01/21 19:31 Blood Pressure 150/74 05/01/21 19:31 Pulse Oximetry 95 05/01/21 19:31 MDM - Fever Lab Data: Labs: Lab Results 05/01/21 05/01/21 05/01/21 16:53 16:53 17:50 WBC Cancelled Corrected WBC Cancelled RBC Cancelled Hgb Cancelled Hct Cancelled MCV Cancelled MCH Cancelled MCHC Cancelled RDW Cancelled Plt Count Cancelled MPV Cancelled Gran % Cancelled Neut % (Auto) Cancelled Lymph % (Auto) Cancelled [place] % (Auto) Cancelled Eos % (Auto) Cancelled Baso % (Auto) Cancelled Neut # (Auto) Cancelled Lymph # (Auto) Cancelled [place] # (Auto) Cancelled Eos # (Auto) Cancelled Baso # (Auto) Cancelled Absolute Gran (aut o) Cancelled Nucleated RBC % (a uto) Cancelled Nucleated RBCs # Cancelled Sodium 138 mmol/L mmol/L (136-145) Potassium 5.1 mmol/L mmol/L (3.5-5.1) Chloride 102 mmol/L mmol/L (98-107) Carbon Dioxide 16 mmol/L L mmol/ L (22-29) Anion Gap 25.1 H (5-19) BUN 47 mg/dL H mg/dL (8-23) Creatinine 2.6 mg/dL H mg/dL (0.7-1.2) GFR Calculation Not Reportable Glucose 173 mg/dL H mg/dL (65-115) Calculated Osmolal ity 302 mOsm/kg H mOs m/kg (285-295) Lactate Calcium 9.1 mg/dL mg/dL (8.5-10.5) Total Bilirubin 1.1 mg/dL mg/dL (0.15-1.2) AST 16 U/L U/L (0-40) ALT 12 U/L U/L (0-41) Alkaline Phosphata se 59 IU/L IU/L (40-130) Total Protein 6.3 g/dL L g/dL (6.6-8.7) Albumin 4.4 g/dL g/dL (3.5-5.2) Globulin 1.9 g/dL g/dL (1.3-4.6) Urine Color Yellow (Yellow) Urine Appearance Hazy A (CLEAR) Urine pH 5 (5-7) Ur Specific Gravit y 1.015 (1.005-1.030) Urine Protein 3+ H (Negative) Urine Glucose (UA) Trace H (Normal) Urine Ketones Negative (Negative) Urine Blood 3+ H (Negative) Urine Nitrate Negative (Negative) Urine Bilirubin 1+ H (Negative) Urine Urobilinogen Norm mg/dL mg/dL (Negative) Ur Leukocyte [place] ase Negative (Negative) Urine RBC 0-4 /hpf H /hpf (0-2) Urine WBC 0-4 /hpf H /hpf (0-5) Ur Squamous Epith Cells 0-4 /hpf H /hpf (0-5) Amorphous Sediment 2+ /hpf /hpf Urine Bacteria Trace /hpf /hpf (NONE) Urine Mucus Trace /hpf /hpf Influenza Type A A g Influenza Type B A g SARS-CoV-2 Ag (Rap id) 05/01/21 05/01/21 05/01/21 18:42 18:42 18:50 WBC 6.3 10^3/uL 10^3/ uL (4.0-10.0) Corrected WBC RBC 4.39 10^6/uL 10^6 /uL (4.1-5.3) Hgb 12.7 g/dL g/dL (11.7-16.6) Hct 39.2 % L % (42.0-52.0) MCV 89.3 fl fl (80-94) MCH 28.9 pg pg (28.0-34.0) MCHC 32.4 g/dL g/dL (30.0-36.0) RDW 14.1 % % (12.1-15.1) Plt Count 76 10^3/cmm L 10^ 3/cmm (130-400) MPV 9.5 fL fL (7.4-10.4) Gran % Neut % (Auto) 92.0 % % Lymph % (Auto) 6.4 % % [place] % (Auto) 0.6 % % Eos % (Auto) 0.0 % % Baso % (Auto) 0.5 % % Neut # (Auto) 5.76 10^3/uL 10^3 /uL (1.8-7.7) Lymph # (Auto) 0.4 10^3/uL L 10^ 3/uL (0.8-4.8) [place] # (Auto) 0.0 10^3/uL L 10^ 3/uL (0.2-0.9) Eos # (Auto) 0.0 10^3/uL 10^3/ uL (0.0-0.8) Baso # (Auto) 0.0 10^3/uL 10^3/ uL (0.0-0.1) Absolute Gran (aut o) Nucleated RBC % (a uto) 0 % % Nucleated RBCs # 0.0 /100WBC /100W BC Sodium Potassium Chloride Carbon Dioxide Anion Gap BUN Creatinine GFR Calculation Glucose Calculated Osmolal ity Lactate 3.2 mmol/L H mmol /L (0.5-2.2) Calcium Total Bilirubin AST ALT Alkaline Phosphata se Total Protein Albumin Globulin Urine Color Urine Appearance Urine pH Ur Specific Gravit y Urine Protein Urine Glucose (UA) Urine Ketones Urine Blood Urine Nitrate Urine Bilirubin Urine Urobilinogen Ur Leukocyte [place] ase Urine RBC Urine WBC Ur Squamous Epith Cells Amorphous Sediment Urine Bacteria Urine Mucus Influenza Type A A g Influenza Type B A g SARS-CoV-2 Ag (Rap id) Negative (Negative) 05/01/21 18:50 WBC Corrected WBC RBC Hgb Hct MCV MCH MCHC RDW Plt Count MPV Gran % Neut % (Auto) Lymph % (Auto) [place] % (Auto) Eos % (Auto) Baso % (Auto) Neut # (Auto) Lymph # (Auto) [place] # (Auto) Eos # (Auto) Baso # (Auto) Absolute Gran (aut o) Nucleated RBC % (a uto) Nucleated RBCs # Sodium Potassium Chloride Carbon Dioxide Anion Gap BUN Creatinine GFR Calculation Glucose Calculated Osmolal ity Lactate Calcium Total Bilirubin AST ALT Alkaline Phosphata se Total Protein Albumin Globulin Urine Color Urine Appearance Urine pH Ur Specific Gravit y Urine Protein Urine Glucose (UA) Urine Ketones Urine Blood Urine Nitrate Urine Bilirubin Urine Urobilinogen Ur Leukocyte [place] ase Urine RBC Urine WBC Ur Squamous Epith Cells Amorphous Sediment Urine Bacteria Urine Mucus Influenza Type A A g Negative (Negative) Influenza Type B A g Negative (Negative) SARS-CoV-2 Ag (Rap id) Discharge Plan Discharge Patient Disposition: Admitted As Inpatient Clinical Impression: CLL (chronic lymphocytic leukemia) Sepsis Qualifiers: Sepsis type: sepsis due to unspecified organism Sepsis acute organ dysfunction status: unspecified Qualified Code(s): A41.9 - Sepsis, unspecified organism Pneumonia Qualifiers: Pneumonia type: due to unspecified organism Laterality: unspecified laterality Lung location: unspecified part of lung Qualified Code(s): J18.9 - Pneumonia, unspecified organism Condition: Stable Coding Level of Care Code ED Web Content Developer for [facility] Fwd Exam Comprehensive Documented by User: Robert Chase MD 05/01/21 20:06 HPI - Fever General: Chief Complaint: Fever Stated Complaint: general weakness/ confusion/ fever Time Seen by Provider: 05/01/21 17:58 History of Present Illness: Associated symptoms: Reports chills; Deny abdominal pain, chest pain, diarrhea, dysuria, headache(s), nausea or vomiting Review of Systems Const: Reports: fever(s) and chills Eyes: Denies: blurry vision or eye discomfort ENMT: Denies: throat pain or dental pain Card: Denies: chest pain Resp: Denies: dyspnea GI: Denies: abdominal pain, nausea, vomiting or diarrhea : Denies: dysuria Musc: Denies: neck pain or back pain Skin/Breast: Denies: rash Neuro: Denies: headache(s) Psych: Denies: depression Madi/Lymph: Denies: easy bruising All/Imm: Denies: urticaria PFSH ED PFSH: Medical History ASHD (arteriosclerotic heart disease) BPH loc w urin obs/LUTS Carotid stenosis, bilateral CKD (chronic kidney disease) CLL (chronic lymphocytic leukemia) Complex renal cyst COVID-19 (~12/2020) COVID-19 vaccine administered (~12/2020) completed series in December 2020 Diabetes Dyslipidemia HTN (hypertension) Surgical History H/O removal of testicle S/P appendectomy S/P CABG (coronary artery bypass graft) S/P PTCA (percutaneous transluminal coronary angioplasty) Status cardiac pacemaker Family History Mother , in her 70's Diabetes CAD (coronary artery disease) Father , at age 69 CAD (coronary artery disease) Hypertension Other Stroke Social History Alcohol intake: never Household members: spouse Marital status: Current occupational status: retired History of recent travel: No Course Vital Signs: Vital signs: Vital Signs Temperature 103.2 F H 05/01/21 17:17 Pulse Rate 117 H 05/01/21 19:31 Respiratory Rate 18 05/01/21 19:31 Blood Pressure 150/74 05/01/21 19:31 Pulse Oximetry 95 05/01/21 19:31 MDM - Fever MDM Narrative: Medical decision making narrative: Patient presents with fever cough slight confusion. He is able answer all my questions appropriately no signs of meningitis no headache or neck stiffness. X-ray does show slight pneumonia patient on IV antibiotics patient's blood pressure here has been normal. Lab Data: Labs: Lab Results 05/01/21 05/01/21 05/01/21 16:53 16:53 17:50 WBC Cancelled Corrected WBC Cancelled RBC Cancelled Hgb Cancelled Hct Cancelled MCV Cancelled MCH Cancelled MCHC Cancelled RDW Cancelled Plt Count Cancelled MPV Cancelled Gran % Cancelled Neut % (Auto) Cancelled Lymph % (Auto) Cancelled [place] % (Auto) Cancelled Eos % (Auto) Cancelled Baso % (Auto) Cancelled Neut # (Auto) Cancelled Lymph # (Auto) Cancelled [place] # (Auto) Cancelled Eos # (Auto) Cancelled Baso # (Auto) Cancelled Absolute Gran (aut o) Cancelled Nucleated RBC % (a uto) Cancelled Nucleated RBCs # Cancelled Sodium 138 mmol/L mmol/L (136-145) Potassium 5.1 mmol/L mmol/L (3.5-5.1) Chloride 102 mmol/L mmol/L (98-107) Carbon Dioxide 16 mmol/L L mmol/ L (22-29) Anion Gap 25.1 H (5-19) BUN 47 mg/dL H mg/dL (8-23) Creatinine 2.6 mg/dL H mg/dL (0.7-1.2) GFR Calculation Not Reportable Glucose 173 mg/dL H mg/dL (65-115) Calculated Osmolal ity 302 mOsm/kg H mOs m/kg (285-295) Lactate Calcium 9.1 mg/dL mg/dL (8.5-10.5) Total Bilirubin 1.1 mg/dL mg/dL (0.15-1.2) AST 16 U/L U/L (0-40) ALT 12 U/L U/L (0-41) Alkaline Phosphata se 59 IU/L IU/L (40-130) Total Protein 6.3 g/dL L g/dL (6.6-8.7) Albumin 4.4 g/dL g/dL (3.5-5.2) Globulin 1.9 g/dL g/dL (1.3-4.6) Urine Color Yellow (Yellow) Urine Appearance Hazy A (CLEAR) Urine pH 5 (5-7) Ur Specific Gravit y 1.015 (1.005-1.030) Urine Protein 3+ H (Negative) Urine Glucose (UA) Trace H (Normal) Urine Ketones Negative (Negative) Urine Blood 3+ H (Negative) Urine Nitrate Negative (Negative) Urine Bilirubin 1+ H (Negative) Urine Urobilinogen Norm mg/dL mg/dL (Negative) Ur Leukocyte [place] Negative (Negative) Urine RBC 0-4 /hpf H /hpf (0-2) Urine WBC 0-4 /hpf H /hpf (0-5) Ur Squamous Epith Cells 0-4 /hpf H /hpf (0-5) Amorphous Sediment 2+ /hpf /hpf Urine Bacteria Trace /hpf /hpf (NONE) Urine Mucus Trace /hpf /hpf Influenza Type A A g Influenza Type B A g SARS-CoV-2 Ag (Rap id) 05/01/21 05/01/21 05/01/21 18:42 18:42 18:50 WBC 6.3 10^3/uL 10^3/ uL (4.0-10.0) Corrected WBC RBC 4.39 10^6/uL 10^6 /uL (4.1-5.3) Hgb 12.7 g/dL g/dL (11.7-16.6) Hct 39.2 % L % (42.0-52.0) MCV 89.3 fl fl (80-94) MCH 28.9 pg pg (28.0-34.0) MCHC 32.4 g/dL g/dL (30.0-36.0) RDW 14.1 % % (12.1-15.1) Plt Count 76 10^3/cmm L 10^ 3/cmm (130-400) MPV 9.5 fL fL (7.4-10.4) Gran % Neut % (Auto) 92.0 % % Lymph % (Auto) 6.4 % % [place] % (Auto) 0.6 % % Eos % (Auto) 0.0 % % Baso % (Auto) 0.5 % % Neut # (Auto) 5.76 10^3/uL 10^3 /uL (1.8-7.7) Lymph # (Auto) 0.4 10^3/uL L 10^ 3/uL (0.8-4.8) [place] # (Auto) 0.0 10^3/uL L 10^ 3/uL (0.2-0.9) Eos # (Auto) 0.0 10^3/uL 10^3/ uL (0.0-0.8) Baso # (Auto) 0.0 10^3/uL 10^3/ uL (0.0-0.1) Absolute Gran (aut o) Nucleated RBC % (a uto) 0 % % Nucleated RBCs # 0.0 /100WBC /100W BC Sodium Potassium Chloride Carbon Dioxide Anion Gap BUN Creatinine GFR Calculation Glucose Calculated Osmolal ity Lactate 3.2 mmol/L H mmol /L (0.5-2.2) Calcium Total Bilirubin AST ALT Alkaline Phosphata se Total Protein Albumin Globulin Urine Color Urine Appearance Urine pH Ur Specific Gravit y Urine Protein Urine Glucose (UA) Urine Ketones Urine Blood Urine Nitrate Urine Bilirubin Urine Urobilinogen Ur Leukocyte [place] ase Urine RBC Urine WBC Ur Squamous Epith Cells Amorphous Sediment Urine Bacteria Urine Mucus Influenza Type A A g Influenza Type B A g SARS-CoV-2 Ag (Rap id) Negative (Negative) 05/01/21 18:50 WBC Corrected WBC RBC Hgb Hct MCV MCH MCHC RDW Plt Count MPV Gran % Neut % (Auto) Lymph % (Auto) [place] % (Auto) Eos % (Auto) Baso % (Auto) Neut # (Auto) Lymph # (Auto) [place] # (Auto) Eos # (Auto) Baso # (Auto) Absolute Gran (aut o) Nucleated RBC % (a uto) Nucleated RBCs # Sodium Potassium Chloride Carbon Dioxide Anion Gap BUN Creatinine GFR Calculation Glucose Calculated Osmolal ity Lactate Calcium Total Bilirubin AST ALT Alkaline Phosphata se Total Protein Albumin Globulin Urine Color Urine Appearance Urine pH Ur Specific Gravit y Urine Protein Urine Glucose (UA) Urine Ketones Urine Blood Urine Nitrate Urine Bilirubin Urine Urobilinogen Ur Leukocyte [place] ase Urine RBC Urine WBC Ur Squamous Epith Cells Amorphous Sediment Urine Bacteria Urine Mucus Influenza Type A A g Negative (Negative) Influenza Type B A g Negative (Negative) SARS-CoV-2 Ag (Rap id) Imaging Data^: CXR: Radiologist's impression: [address] [place] [address] XRay Report Signed Patient: Valente Renae Unit #: [id number] : [id number] Age/Sex: 76 / M ADM Date: 05/01/21 Loc: ER Room/Bed: Attending Dr: Ordering Provider/Ordering MD: Michael Barrett NP Date of Service: 05/01/21 Procedure(s): XR chest 1V portable [id number] Accession Number(s): [id number] Report Number: [id number] PROCEDURE INFORMATION: Exam: XR Chest Exam date and time: 05/01/2021 6:00 PM Age: 76 years old Clinical indication: Cough and fever and other: Weakness, nausea; Prior surgery; Surgery type: 4 bypass, pacemaker, stents TECHNIQUE: Imaging protocol: XR of the chest. Views: 1 view. COMPARISON: CR XR chest 1V portable [id number] 01/26/2021 2:30 PM FINDINGS: Tubes, catheters and devices: Pacemaker. Lungs: Bilateral hilar to lower lobe atelectasis versus infiltrate. Pleural spaces: Unremarkable. No pleural effusion. No pneumothorax. Heart/Mediastinum: Unremarkable. No cardiomegaly. Bones/joints: Sternotomy wires. XR/XR chest 1V portable [id number] IMPRESSION: Bilateral hilar to lower lobe atelectasis versus infiltrate. Radiation Dose CTDIVOL = (mGy): DLP = (mGy-cm) Dictated By: Cody Bucio MD Signed By: Cody Bucio MD Signed Date/Time: 05/01/21 1830 DD/ 1800 EKG Data^: EKG 1: Attestation: I personally reviewed and interpreted this EKG as follows: EKG interpretation date: 05/01/21 EKG interpretation time: 17:37 Interpretation: paced hr [address] or t wave abnormalities qrs 178 qtc 460 Discharge Plan Discharge Patient Disposition: Admitted As Inpatient Clinical Impression: CLL (chronic lymphocytic leukemia) Sepsis Qualifiers: Sepsis type: sepsis due to unspecified organism Sepsis acute organ dysfunction status: unspecified Qualified Code(s): A41.9 - Sepsis, unspecified organism Pneumonia Qualifiers: Pneumonia type: due to unspecified organism Laterality: unspecified laterality Lung location: unspecified part of lung Qualified Code(s): J18.9 - Pneumonia, unspecified organism Condition: Stable Coding Level of Care Code ED Web Content Developer for [facility] Fwd Exam Comprehensive
--- NOTE | 2021-05-01 18:00 | XRR_ITS ---
PROCEDURE INFORMATION: Exam: XR Chest Exam date and time: 05/01/2021 6:00 PM Age: 76 years old Clinical indication: Cough and fever and other: Weakness, nausea; Prior surgery; Surgery type: 4 bypass, pacemaker, stents TECHNIQUE: Imaging protocol: XR of the chest. Views: 1 view. COMPARISON: CR XR chest 1V portable [id number] 01/26/2021 2:30 PM FINDINGS: Tubes, catheters and devices: Pacemaker. Lungs: Bilateral hilar to lower lobe atelectasis versus infiltrate. Pleural spaces: Unremarkable. No pleural effusion. No pneumothorax. Heart/Mediastinum: Unremarkable. No cardiomegaly. Bones/joints: Sternotomy wires. XR/XR chest 1V portable [id number] IMPRESSION: Bilateral hilar to lower lobe atelectasis versus infiltrate. Radiation Dose CTDIVOL = (mGy): DLP = (mGy-cm)
[2021-05-01 18:04] VITALS: BP 129/64; PULSE 110; O2SAT 95
[2021-05-01 18:26] LABS: Alanine Aminotransferase 12 U/L (0-41); Albumin Level 4.4 g/dL (3.5-5.2); Alkaline Phosphatase 59 IU/L (40-130); Aspartate Amino Transferase 16 U/L (0-40); Blood Urea Nitrogen 47 mg/dL (8-23); Calcium 9.1 mg/dL (8.5-10.5); Carbon Dioxide 16 mmol/L (22-29); Chloride 102 mmol/L (98-107); Globulin 1.9 g/dL (1.3-4.6); Glucose 173 mg/dL (65-115); Osmolality Calculated 302 mOsm/kg (285-295); Sodium 138 mmol/L (136-145); Total Bilirubin 1.1 mg/dL (0.15-1.2); Total Protein 6.3 g/dL (6.6-8.7)
[2021-05-01 18:30] LABS: Anion Gap 25.1 (5-19); Potassium 5.1 mmol/L (3.5-5.1)
[2021-05-01 18:39] LABS: Add Urine Microscopic? YES; Bilirubin Urine 1+ (Negative); Blood Urine 3+ (Negative); Glucose Urine UA Trace (Normal); Ketones Urine Negative (Negative); Leukocyte Esterase Urine Negative (Negative); Nitrate Urine Negative (Negative); Protein Urine 3+ (Negative); Specific Gravity, Urine 1.015 (1.005-1.030); Urine Appearance Hazy (CLEAR); Urine Color Yellow (Yellow); Urobilinogen Urine Norm (Negative); pH Urine 5 (5-7)
[2021-05-01 18:41] LABS: Amorphous Sediment Urine 2+ /hpf; Bacteria Urine TRACE /hpf; Mucus Urine TRACE /hpf; RBC Urine 0-4 /hpf (0-2); Squamous Epithelial Cell Urine 0-4 /hpf (0-5); WBC Urine 0-4 /hpf (0-5)
[2021-05-01 18:42] LABS: Add Urine Culture? No
[2021-05-01] MEDS: sodium chloride 0.9% 500 ML 999 ML IV (18:54)
[2021-05-01] MEDS: acetaminophen 500 mg Tablet 1000 MG PO (18:54)
[2021-05-01] MEDS: cefTRIAXone 1,000 MG in sodium chloride 0.9% (plus) 50 ML 100 MG IV (18:55)
[2021-05-01 18:56] LABS: Basophils % 0.5 %; Hematocrit 39.2 % (42.0-52.0); Hemoglobin 12.7 g/dL (11.7-16.6); Lymphocytes # 0.4 10^3/uL (0.8-4.8); Lymphocytes % 6.4 %; Mean Corpuscular HGB Conc 32.4 g/dL (30.0-36.0); Mean Corpuscular Hemoglobin 28.9 pg (28.0-34.0); Mean Corpuscular Volume 89.3 fl (80-94); Mean Platelet Volume 9.5 fL (7.4-10.4); Monocytes % 0.6 %; Neutrophils # 5.76 10^3/uL (1.8-7.7); Nucleated Red Blood Cells % 0 %; Platelet Count 76 10^3/cmm (130-400); Red Blood Count 4.39 10^6/uL (4.1-5.3); Red Cell Distribution Width 14.1 % (12.1-15.1); White Blood Count 6.3 10^3/uL (4.0-10.0)
[2021-05-01 18:57] VITALS: BP 132/70; PULSE 112; O2SAT 96
[2021-05-01] MEDS: vancomycin 1,000 MG in sodium chloride 0.9% 250 ML 250 MG IV (19:23)
[2021-05-01 19:25] LABS: SARS Covid-2 Antigen Negative (Negative)
[2021-05-01 19:26] LABS: Influenza A by IFA Negative (Negative); Influenza B by IFA Negative (Negative)
[2021-05-01 19:27] LABS: Lactate (Lactic Acid level) 3.2 mmol/L (0.5-2.2)
[2021-05-01 19:31] VITALS: BP 150/74; PULSE 117; RESP 18; O2SAT 95
[2021-05-01] MEDS: sodium chloride 0.9% 1,000 ML 999 ML IV ×2 (19:52→20:25)
[2021-05-01 20:26] VITALS: BP 125/63; PULSE 110; RESP 18; O2SAT 94
--- NOTE | 2021-05-01 20:37 | PM.HP ---
Providers/Chief Complaint Primary Care Provider: Alejandro Macias MD Chief Complaint: general weakness/ confusion/ fever History of Present Illness Valente Renae is a 76 year old male with past medical history of CLL, recent Covid, chronic kidney disease stage III-IV, BPH, anemia, diabetes, coronary artery disease, CABG, hypertension, permanent pacemaker, peripheral arterial disease, dyslipidemia who is brought by his family to emergency room due to confusion and some fever. The information is collected from the patient and his . According to his the patient was doing well until this morning. He woke up and vomited about 3 times. Mostly undigested food. He had mild confusion at that time. No chills or subjective fever. He also reports some dry cough and mild shortness of breath. In emergency room chest x-ray revealed bilateral infiltrates, fever, evidence of dehydration with elevated lactic acid level. Currently the patient feeling much improved after 1 bolus of IV fluids. The patient also reports decreased urine output. He is not sure whether he urinated today or not. He has history of BPH and has difficulties passing urine. He denies any abdominal pain. No diarrhea. He also denies any chest pain, palpitations. No blood in the emesis or stool. Denies any headache, neck stiffness. He reports similar confusion several months ago probably related to infection or Levaquin that he received for infection. Review of Systems General: Reports: 10 or more systems reviewed and unremarkable except in HPI and below Medications/Allergies Home Medications Medication Instructions Recorded Confirmed Last Taken Type amlodipine 10 mg tablet 10 mg PO DAILY 11/22/19 04/19/21 01/27/21 History aspirin 81 mg tablet,delayed 81 mg PO DAILY 11/22/19 04/19/21 01/27/21 History release nitroglycerin 0.4 mg sublingual 0.4 mg SUBLINGUAL Q5M PRN 11/22/19 04/19/21 Unknown History tablet docusate sodium [Colace] 100 mg PO BID PRN 12/02/19 04/19/21 04/30/20 History fluticasone propionate [Flonase 1 spray INTRANASAL BID 12/02/19 04/19/21 01/25/21 History Allergy Relief] insulin aspart U-100 [Novolog See Rx Instructions .ROUTE .COMPLEX 12/02/19 04/19/21 Unknown History Flexpen U-100 Insulin] acetaminophen 325 mg tablet 325 mg PO QID PRN 06/13/20 04/19/21 Unknown History finasteride 5 mg tablet 5 mg PO DAILY 07/25/20 04/19/21 01/27/21 History cholecalciferol (vitamin D3) 25 50 mcg PO DAILY cap 12/14/20 04/19/21 01/27/21 History mcg (1,000 unit) capsule glucosamine-chondroitin 250 mg-200 1 tab PO DAILY tab 12/14/20 04/19/21 01/25/21 History mg tablet sodium bicarbonate 650 mg PO TID #90 tab 01/14/21 04/19/21 01/27/21 Rx isosorbide mononitrate 60 mg 60 mg PO DAILY #30 tab 01/23/21 04/19/21 01/27/21 Rx tablet,extended release 24 hr Lantus Solostar U-100 Insulin 15 unit SUBCUT BEDTIME #0 ml MDD 01/29/21 04/19/21 01/27/21 Rx see pharmacy comment atorvastatin 10 mg tablet 10 mg PO DAILY 03/02/21 04/19/21 Unknown History clopidogrel 75 mg tablet 75 mg PO DAILY 03/02/21 04/19/21 Unknown History losartan 100 mg tablet 100 mg PO DAILY 03/02/21 04/19/21 Unknown History magnesium oxide 400 mg PO DAILY 03/02/21 04/19/21 Unknown History tamsulosin 0.4 mg capsule 0.8 mg PO .bedtime #180 cap 03/02/21 04/19/21 Unknown Rx Allergies Allergy/AdvReac Type Severity Reaction Status Date / Time allopurinol Allergy ALGY-Rash Verified 05/01/21 17:17 Iodinated Contrast Media Allergy ALGY-Hives Verified 05/01/21 17:17 levofloxacin [From Levaquin] Allergy ADR-Confusi Verified 05/01/21 17:17 on metformin Allergy ADR-Fatigue Verified 05/01/21 17:17 d PFSH Acute PFSH: Medical History (Updated 05/01/21 @ 20:51 by Chaz Liu) ASHD (arteriosclerotic heart disease) BPH loc w urin obs/LUTS Carotid stenosis, bilateral CKD (chronic kidney disease) CLL (chronic lymphocytic leukemia) Complex renal cyst COVID-19 (~12/2020) COVID-19 vaccine administered (~12/2020) completed series in December 2020 Diabetes Dyslipidemia HTN (hypertension) UTI (urinary tract infection) Surgical History H/O removal of testicle S/P appendectomy S/P CABG (coronary artery bypass graft) S/P PTCA (percutaneous transluminal coronary angioplasty) Status cardiac pacemaker Family History Mother , in her 70's Diabetes CAD (coronary artery disease) Father , at age 69 CAD (coronary artery disease) Hypertension Other Stroke Social History Alcohol intake: never Household members: spouse Marital status: Current occupational status: retired History of recent travel: No Vitals/I&O/Wt Last Vital Signs Temp 103.2 F H 05/01/21 17:17 Pulse 110 H 05/01/21 20:26 Resp 18 05/01/21 20:26 BP 125/63 05/01/21 20:26 Pulse Ox 94 05/01/21 20:26 05/01/21 05/01/21 05/01/21 06:59 14:59 22:59 Intake Total 1800 / 1800 Balance 1800 / 1800 Weight last 48 hrs Weight 104.326 kg Physical Exam Narrative: EXAM NARRATIVE: The patient is currently awake and alert. Slightly forgetful but oriented x3. Responses are adequate. No acute distress Skin is warm and dry. Moist mucous membranes Eyes PERRL, extraocular muscles are intact Neck supple. No JVD. Lungs: Decreased breath sounds and mild bibasilar crackles. No respiratory distress Heart S1, S2, regular Abdomen soft, nontender, bowel sounds are present. Negative Corado sign Extremities. No edema cyanosis or calf tenderness bilaterally Neuro examination nonfocal. No meningeal findings. Normal speech. Data : 05/01/21 18:42 05/01/21 16:53 Other Labs: Laboratory Results WBC 6.3 10^3/uL (4.0-10.0) 05/01/21 18:42 Corrected WBC Cancelled 05/01/21 16:53 RBC 4.39 10^6/uL (4.1-5.3) 05/01/21 18:42 Hgb 12.7 g/dL (11.7-16.6) 05/01/21 18:42 Hct 39.2 % (42.0-52.0) L 05/01/21 18:42 MCV 89.3 fl (80-94) 05/01/21 18:42 MCH 28.9 pg (28.0-34.0) 05/01/21 18:42 MCHC 32.4 g/dL (30.0-36.0) 05/01/21 18:42 RDW 14.1 % (12.1-15.1) 05/01/21 18:42 Plt Count 76 10^3/cmm (130-400) L 05/01/21 18:42 MPV 9.5 fL (7.4-10.4) 05/01/21 18:42 Gran % Cancelled 05/01/21 16:53 Neut % (Auto) 92.0 % 05/01/21 18:42 Lymph % (Auto) 6.4 % 05/01/21 18:42 Piatt % (Auto) 0.6 % 05/01/21 18:42 Eos % (Auto) 0.0 % 05/01/21 18:42 Baso % (Auto) 0.5 % 05/01/21 18:42 Neut # (Auto) 5.76 10^3/uL (1.8-7.7) 05/01/21 18:42 Lymph # (Auto) 0.4 10^3/uL (0.8-4.8) L 05/01/21 18:42 Piatt # (Auto) 0.0 10^3/uL (0.2-0.9) L 05/01/21 18:42 Eos # (Auto) 0.0 10^3/uL (0.0-0.8) 05/01/21 18:42 Baso # (Auto) 0.0 10^3/uL (0.0-0.1) 05/01/21 18:42 Absolute Gran (auto) Cancelled 05/01/21 16:53 Nucleated RBC % (auto) 0 % 05/01/21 18:42 Nucleated RBCs # 0.0 /100WBC 05/01/21 18:42 Sodium 138 mmol/L (136-145) 05/01/21 16:53 Potassium 5.1 mmol/L (3.5-5.1) 05/01/21 16:53 Chloride 102 mmol/L (98-107) 05/01/21 16:53 Carbon Dioxide 16 mmol/L (22-29) L 05/01/21 16:53 Anion Gap 25.1 (5-19) H 05/01/21 16:53 BUN 47 mg/dL (8-23) H 05/01/21 16:53 Creatinine 2.6 mg/dL (0.7-1.2) H 05/01/21 16:53 GFR Calculation Not Reportable 05/01/21 16:53 Glucose 173 mg/dL (65-115) H 05/01/21 16:53 Calculated Osmolality 302 mOsm/kg (285-295) H 05/01/21 16:53 Lactate 3.2 mmol/L (0.5-2.2) H 05/01/21 18:42 Calcium 9.1 mg/dL (8.5-10.5) 05/01/21 16:53 Total Bilirubin 1.1 mg/dL (0.15-1.2) 05/01/21 16:53 AST 16 U/L (0-40) 05/01/21 16:53 ALT 12 U/L (0-41) 05/01/21 16:53 Alkaline Phosphatase 59 IU/L (40-130) 05/01/21 16:53 Total Protein 6.3 g/dL (6.6-8.7) L 05/01/21 16:53 Albumin 4.4 g/dL (3.5-5.2) 05/01/21 16:53 Globulin 1.9 g/dL (1.3-4.6) 05/01/21 16:53 Urine Color Yellow (Yellow) 05/01/21 17:50 Urine Appearance Hazy (CLEAR) A 05/01/21 17:50 Urine pH 5 (5-7) 05/01/21 17:50 Ur Specific [place] 1.015 (1.005-1.030) 05/01/21 17:50 Urine Protein 3+ (Negative) H 05/01/21 17:50 Urine Glucose (UA) Trace (Normal) H 05/01/21 17:50 Urine Ketones Negative (Negative) 05/01/21 17:50 Urine Blood 3+ (Negative) H 05/01/21 17:50 Urine Nitrate Negative (Negative) 05/01/21 17:50 Urine Bilirubin 1+ (Negative) H 05/01/21 17:50 Urine Urobilinogen Norm mg/dL (Negative) 05/01/21 17:50 Ur Leukocyte Esterase Negative (Negative) 05/01/21 17:50 Urine RBC 0-4 /hpf (0-2) H 05/01/21 17:50 Urine WBC 0-4 /hpf (0-5) H 05/01/21 17:50 Ur Squamous Epith Cells 0-4 /hpf (0-5) H 05/01/21 17:50 Amorphous Sediment 2+ /hpf 05/01/21 17:50 Urine Bacteria Trace /hpf (NONE) 05/01/21 17:50 Urine Mucus Trace /hpf 05/01/21 17:50 Influenza Type A Ag Negative (Negative) 05/01/21 18:50 Influenza Type B Ag Negative (Negative) 05/01/21 18:50 SARS-CoV-2 Ag (Rapid) Negative (Negative) 05/01/21 18:50 Impressions Chest X-Ray 05/01/21 18:00 IMPRESSION: Bilateral hilar to lower lobe atelectasis versus infiltrate. Radiation Dose CTDIVOL = (mGy): DLP = (mGy-cm) Micro: Microbiology 05/01/21 20:00 Blood Culture - Preliminary Blood SPECIMEN COLLECTED 05/01/21 18:42 Blood Culture - Preliminary Blood SPECIMEN COLLECTED A&P Assessment and plan (1) Acute metabolic encephalopathy: Status: Acute (2) Pneumonia: Status: Acute Qualifiers: Laterality: unspecified laterality Lung location: unspecified part of lung Pneumonia type: due to unspecified organism Qualified Code(s): J18.9 - Pneumonia, unspecified organism (3) Sepsis: Status: Acute Qualifiers: Sepsis acute organ dysfunction status: unspecified Sepsis type: sepsis due to unspecified organism Qualified Code(s): A41.9 - Sepsis, unspecified organism (4) Dehydration: Status: Acute (5) Metabolic acidosis: Status: Acute (6) Diabetes: Status: Chronic Qualifiers: Diabetes mellitus type: type 2 Diabetes mellitus termite exterminator helper insulin use: with skilled nursing use Diabetes mellitus complication status: with kidney complications Diabetes mellitus complication detail: with chronic kidney disease Chronic kidney disease stage: stage 3 (moderate) Chronic kidney disease stage 3 subtype: stage 3b (GFR 30-44) Qualified Code(s): E11.22 - Type 2 diabetes mellitus with diabetic chronic kidney disease; N18.32 - Chronic kidney disease, stage 3b; Z79.4 - termite control technician (current) use of insulin (7) HTN (hypertension): Status: Chronic (8) CKD (chronic kidney disease): Status: Chronic (9) Coronary artery disease: Status: Acute Additional A&P Information 76 year old male with past medical history of CLL, recent Covid, chronic kidney disease stage III-IV, BPH, anemia, diabetes, coronary artery disease, CABG, hypertension, permanent pacemaker, peripheral arterial disease, dyslipidemia who is brought by his family to emergency room due to confusion, cough, fever. Acute metabolic encephalopathy. Suspected to be due to infection probably due to pneumonia. I suspect that dehydration and metabolic acidosis are also contributing. Currently improved with IV fluids. Will check B12 level, TSH, do a bladder scan to rule out urinary retention. We will reassess him in the morning. If still persists we will consider MRI. Acute metabolic acidosis, lactic. Probably due to infection. Will hydrate and monitor. Dehydration. As above. Pneumonia. Will check procalcitonin level. Will order Rocephin and doxycycline for now. If procalcitonin is not elevated will consider de-escalating antibiotics quickly. His infiltrates could be residual from his recent Covid pneumonia. History of diabetes, hypertension, chronic kidney disease, coronary artery disease. Will review his med rec when it is complete. We will resume his home medications gradually. We will cover him with as needed hydralazine and insulin sliding scale. DVT prophylaxis. Heparin. CODE STATUS. He wants to be full code. The plan of care was discussed with the patient and his . They verbalized understanding and agreement. Attestations Medical Necessity Statement*: Based on my assessment of patient's current condition, findings and diagnosis I expect that the patient will spend more than 2 midnights in the hospital. Coding Level of Care Code Acute Avionics Shop Supervisor for [facility] Moreno Diagnoses Acute metabolic encephalopathy G93.41 Pneumonia J18.9 Laterality: unspecified laterality Lung location: unspecified part of lung Pneumonia type: due to unspecified organism Sepsis A41.9 Sepsis acute organ dysfunction status: unspecified Sepsis type: sepsis due to unspecified organism Dehydration E86.0 Metabolic acidosis E87.2 Diabetes E11.22; N18.32; Z79.4 Diabetes mellitus type: type 2 Diabetes mellitus termite exterminator helper insulin use: with termite exterminator helper use Diabetes mellitus complication status: with kidney complications Diabetes mellitus complication detail: with chronic kidney disease Chronic kidney disease stage: stage 3 (moderate) Chronic kidney disease stage 3 subtype: stage 3b (GFR 30-44) HTN (hypertension) I10 CKD (chronic kidney disease) N18.9 Coronary artery disease I25.10
[2021-05-01 21:10] VITALS: BP 111/58; PULSE 113; RESP 18; TEMP 36.5; O2SAT 94; BMI 32.8
[2021-05-01 21:19] LABS: Vitamin B12 434 pg/mL (232-1245)
[2021-05-01] MEDS: sodium chloride 0.9% 1,000 ML 75 ML IV (21:28)
[2021-05-01] MEDS: heparin 5,000 unit/mL INJ 1 mL 5000 UNIT SUBCUT (21:28)
--- NOTE | 2021-05-01 21:28 | PC.NURSE ---
i reported high pulse 113 to nurse
[2021-05-01 21:40] LABS: NT Pro B Type Natriuretic Pept 1086 pg/mL (0-450); Procalcitonin 1.33 ng/mL (0-0.5)
[2021-05-01 22:06] LABS: Glucose Point of Care 180 mg/dL (70-110)
[2021-05-01 22:24] LABS: Thyroid Stimulating Hormone 1.93 uIU/mL (0.27-4.20)
[2021-05-02] VITALS (7 sets, daily range): BP systolic 106–128; BP diastolic 51–69; PULSE 79–108; RESP 16–18; TEMP 36.3–36.9; O2SAT 92–95
--- NOTE | 2021-05-02 00:36 | PC.NURSE ---
i reported high pulse 102 to nurse
[2021-05-02] MEDS: ondansetron 2 mg/ML SDV 2 mL 4 MG IVP (03:35)
[2021-05-02] MEDS: loperamide 2 mg Capsule PO (03:35)
--- NOTE | 2021-05-02 04:21 | PC.NURSE ---
i reported high pulse 108 to nurse
[2021-05-02 05:51] LABS: Hematocrit 37.3 % (42.0-52.0); Hemoglobin 11.9 g/dL (11.7-16.6); Mean Corpuscular HGB Conc 31.9 g/dL (30.0-36.0); Mean Corpuscular Volume 90.8 fl (80-94); Mean Platelet Volume 10.5 fL (7.4-10.4); Platelet Count 72 10^3/cmm (130-400); Red Blood Count 4.11 10^6/uL (4.1-5.3); Red Cell Distribution Width 14.4 % (12.1-15.1)
[2021-05-02 06:10] LABS: Anion Gap 16.1 (5-19); Blood Urea Nitrogen 40 mg/dL (8-23); Calcium 8.4 mg/dL (8.5-10.5); Carbon Dioxide 19 mmol/L (22-29); Chloride 106 mmol/L (98-107); Glucose 103 mg/dL (65-115); Magnesium 1.2 mg/dL (1.7-2.3); Osmolality Calculated 292 mOsm/kg (285-295); Potassium 5.1 mmol/L (3.5-5.1); Sodium 136 mmol/L (136-145)
[2021-05-02 06:36] LABS: Slide Review Slide Review Perform
[2021-05-02 06:39] LABS: Absolute Neutrophil 8.7 10^3/cmm (1.4-6.5); Absolute Segmented Neutrophil 6.2 10/cmm (1.6-7.1); Band Neutrophils Absolute 2.5 10^3/cmm (0.0-1.2); Eosinophils 0 %; Lymphocytes 12 %; Lymphocytes Absolute 1.2 10^3/cmm (1.2-3.4); Platelet Estimate Decreased (Normal); Segmented Neutrophils 62 %; Total Cells Counted 100 (0-100)
[2021-05-02] MEDS: doxycycline 100 mg Tablet PO ×2 (07:58→16:39)
[2021-05-02] MEDS: heparin 5,000 unit/mL INJ 1 mL 5000 UNIT SUBCUT ×2 (07:59→21:22)
[2021-05-02] MEDS: azithromycin 500 MG in sodium chloride 0.9% 250 ML 250 MG IV (07:59)
[2021-05-02] MEDS: cefTRIAXone 1,000 MG in sodium chloride 0.9% (plus) 50 ML 100 MG IV (08:08)
[2021-05-02 08:16] LABS: Base Excess VBG -4.7 mmol/L (-3.0-3.0); Blood Gas Allen Test Pos; Blood Gas Operator Identificat MONRO; Blood Gas Sample Type Venous; HCO3 VBG 21.5 mmol/L (24-28); PCO2 VBG 43.3 mmHg (41-51); PO2 VBG 33.1 mmHg (25-40); Venous Blood Gas Hematocrit 37.5 % (42-52)
[2021-05-02 08:42] LABS: Lactic Sepsis W/Reflex 1.9 mmol/L (0.5-2.2)
--- NOTE | 2021-05-02 09:29 | PC.CHAP ---
Pastoral Care Encounter/Spiritual Assessment Type of Contact [] Declined patient observation assistant visit [] Patient/Family/Request visit [] Outpatient visit [] Follow-up visit [] Physician referral [] Code/Alert [x] Routine visit [] Staff referral [] Actively dying [] Patient sleeping [] Family support [] [] Out of room [] Palliative care [] [] Receiving care in room [] Pre-surgical visit [] Trauma [] Long length of stay [] ICU visit [] Other: Relational/Emotional Strength [] Patient feels connected with others/family/visitors/staff [] Distress [] Loneliness/isolation [] Abandonment Spirituality of Patient [] Person of Trin[place] [] Attends Orthodoxy of their [place] [] Believes in Prayer [] Reads Bible or Mu-Ism materials [] There are Spiritual issues to be addressed Hydraulic Design Engineer Interventions [x] Prayer [] Active listening [] Non-anxious presence [] Spiritual/emotional support [] Crisis/trauma care [] Spiritual counseling [] Bereavement support [] Provided bereavement packet [] Provided Bible/devotional materials [] Provided toy/stuffed animal, coloring book to patient or family member [] Provided Communion [] Anointing/[place] [] Salvation [x] Completed spiritual assessment [] Other: Impact on Illness or Injury [] Angry [] Fearful [] Anxious [] Often cries [] Exhaustion [] Unable to work [] Unable to attend tenriism [] Unable to walk/stand [] Unable to read [] Unable to drive [] Unable to eat/drink [] Unable to sleep [] Unable to be with family [] Patient intubated [] Other: Summary Time spent with patient
--- NOTE | 2021-05-02 10:18 | PC.PHAR ---
pt states he takes care of his own medications-pt states he still takes plavix ext med history shows last filled 02/02/21 30d/[facility]-pt states he doesnt think he takes zyprexa any longer ext med history shows last filled 02/02/21 30d/s-notes are made in the pharmacy comments
[2021-05-02] MEDS: magnesium sulfate premix 2 GM/50 ML PIGGYBACK IV (13:34)
--- NOTE | 2021-05-02 13:36 | PC.NURSE ---
MGSO4 INTERIOR BAG DID NOT SCAN, EXTERIOR SCANNED, PHARMACY NOTIFIED
[2021-05-02 14:17] LABS: Lactate (Lactic Acid level) 2.3 mmol/L (0.5-2.2)
--- NOTE | 2021-05-02 15:11 | PM.PN ---
Subjective Subjective: Interval history: Seen and examined this morning. Covid antigen negative. PCR is pending. Patient continues to have diarrhea. He had 4 episodes overnight. He states is watery but some solid stool mixed in. He does have some cramping prior to having a bowel movement. Unsure why he has not been able to provide us a sample so far. He is no longer having vomiting. Vitals/I&O/Wt Last Vital Signs Temp 97.8 F 05/02/21 15:02 Pulse 95 05/02/21 15:02 Resp 16 05/02/21 15:02 BP 113/51 05/02/21 15:02 Pulse Ox 93 05/02/21 15:02 05/02/21 05/02/21 05/02/21 06:59 14:59 22:59 Intake Total 40 / 2840 660 / 660 500 / 1160 Output Total 150 / 150 Balance -110 / 2690 660 / 660 500 / 1160 Weight last 48 hrs Weight 103.873 kg Weight 104.326 kg Physical Exam Narrative: EXAM NARRATIVE: General: Alert oriented x3, patient seen sitting up in bed appearing very comfortable. HEENT: Normocephalic, atraumatic, EOMI, breathing room air Cardio: Regular rate rhythm, normal S1-S2, no murmurs rubs gallops Respiratory: Good bilateral air entry, no wheezes no rhonchi appreciated GI: Abdomen soft, nontender, nondistended, bowel sounds +, obese rounded abdomen. No signs of acute abdomen at this time. No rebound tenderness. Behavior: Appropriate and cooperative Extremities: no edema, no cyanosis Data : 05/02/21 05:37 05/02/21 05:37 Micro: Microbiology 05/01/21 20:00 Blood Culture - Preliminary Blood SPECIMEN COLLECTED 05/01/21 18:42 Blood Culture - Preliminary Blood SPECIMEN COLLECTED A&P Assessment and plan (1) Dehydration: Status: Acute (2) Sepsis: Status: Acute Qualifiers: Sepsis acute organ dysfunction status: unspecified Sepsis type: sepsis due to unspecified organism Qualified Code(s): A41.9 - Sepsis, unspecified organism (3) Diabetes: Status: Chronic Qualifiers: Diabetes mellitus type: type 2 Diabetes mellitus predatory animal exterminator insulin use: with alf use Diabetes mellitus complication status: with kidney complications Diabetes mellitus complication detail: with chronic kidney disease Chronic kidney disease stage: stage 3 (moderate) Chronic kidney disease stage 3 subtype: stage 3b (GFR 30-44) Qualified Code(s): E11.22 - Type 2 diabetes mellitus with diabetic chronic kidney disease; N18.32 - Chronic kidney disease, stage 3b; Z79.4 - nursing home (current) use of insulin (4) Dyslipidemia: Status: Chronic (5) CKD (chronic kidney disease): Status: Chronic (6) Diarrhea: Status: Acute (7) Coronary artery disease: Status: Acute (8) CLL (chronic lymphocytic leukemia): Status: Chronic (9) Pneumonia due to 2019 novel coronavirus: Status: Acute Additional A&P Information #Diarrhea 76-year-old brought in by family for confusion, cough, fever. Patient states that his main complaint was vomiting and diarrhea. He says he was not really confused but just a little forgetful. He knew where he was and he knew what was going on. Patient did receive IV fluids in the ER which did improve him quite a bit. He does have diarrhea about 4 episodes overnight as per what he has reported to me this morning. Unable to obtain stool sample yet. Patient is not confused when seen. Will check for bacterial stool culture and stool for ova parasite, C. difficile as well. #Pneumonia Patient has been placed on Rocephin and doxycycline for now. Procalcitonin elevated 1.33. Lactic acid still elevated on afternoon labs today. I will place patient on normal saline 125 cc/h. WIll add 500 cc NS bolus. Due to patient's CLL history I will escalate his antibiotics to Zosyn and stop the ceftriaxone. Will cover for Pseudomonas. Will check MRSA nares. Will check bacterial antigens. Pt has bandemia as well. Will check sputum Gm stain and culture. Covid PCR is pending. Will check CT chest WITHOUT contrast. #DM - on lantus 50 units at home - Blood glucose lower inpatient will keep on sliding scale for now and hold long acting #CKD - on bicarb tablets at home. Unsure if underlying RTA. Will review previous documentation. 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 Developer for [facility] Fwd Diagnoses Dehydration E86.0 Sepsis A41.9 Sepsis acute organ dysfunction status: unspecified Sepsis type: sepsis due to unspecified organism Diabetes E11.22; N18.32; Z79.4 Diabetes mellitus type: type 2 Diabetes mellitus alf insulin use: with alf use Diabetes mellitus complication status: with kidney complications Diabetes mellitus complication detail: with chronic kidney disease Chronic kidney disease stage: stage 3 (moderate) Chronic kidney disease stage 3 subtype: stage 3b (GFR 30-44) Dyslipidemia E78.5 CKD (chronic kidney disease) N18.9 Diarrhea R19.7 Coronary artery disease I25.10 CLL (chronic lymphocytic leukemia) C91.10 Pneumonia due to 2019 novel coronavirus U07.1; J12.82
[2021-05-02] MEDS: sodium chloride 0.9% 500 ML IV (16:30)
[2021-05-02] MEDS: piperacillin-tazobactam 3.375 GM in sodium chloride 0.9% (plus) 50 ML IV ×2 (16:33→23:03)
[2021-05-02] MEDS: atorvastatin 40 mg Tablet 10 MG PO (16:39)
[2021-05-02 17:21] LABS: Glucose Point of Care 130 mg/dL (70-110)
[2021-05-02] MEDS: sodium chloride 0.9% 1,000 ML 125 ML IV (18:52)
[2021-05-02 21:08] LABS: Glucose Point of Care 121 mg/dL (70-110)
[2021-05-03] VITALS (7 sets, daily range): BP systolic 122–174; BP diastolic 59–78; PULSE 91–97; RESP 14–17; TEMP 36.6–37.1; O2SAT 90–95
[2021-05-03] MEDS: sodium chloride 0.9% 1,000 ML 125 ML IV ×2 (01:18→08:29)
[2021-05-03] MEDS: aspirin 81 mg EC Tablet PO (05:16)
[2021-05-03] MEDS: isosorbide mononitrate ER 30 mg Tablet PO (05:16)
[2021-05-03 05:48] LABS: Basophils % 0.2 %; Eosinophils % 0.3 %; Hematocrit 35.9 % (42.0-52.0); Hemoglobin 11.3 g/dL (11.7-16.6); Lymphocytes # 1.1 10^3/uL (0.8-4.8); Lymphocytes % 16.9 %; Mean Corpuscular HGB Conc 31.5 g/dL (30.0-36.0); Mean Corpuscular Hemoglobin 29.3 pg (28.0-34.0); Mean Platelet Volume 10.8 fL (7.4-10.4); Monocytes # 0.4 10^3/uL (0.2-0.9); Monocytes % 5.7 %; Neutrophils # 4.93 10^3/uL (1.8-7.7); Neutrophils % 76.3 %; Nucleated Red Blood Cells % 0 %; Platelet Count 68 10^3/cmm (130-400); Red Blood Count 3.86 10^6/uL (4.1-5.3); Red Cell Distribution Width 14.6 % (12.1-15.1); White Blood Count 6.5 10^3/uL (4.0-10.0)
[2021-05-03 06:10] LABS: Alanine Aminotransferase 11 U/L (0-41); Albumin Level 3.7 g/dL (3.5-5.2); Alkaline Phosphatase 34 IU/L (40-130); Anion Gap 18.5 (5-19); Aspartate Amino Transferase 17 U/L (0-40); Blood Urea Nitrogen 41 mg/dL (8-23); Calcium 8.5 mg/dL (8.5-10.5); Carbon Dioxide 17 mmol/L (22-29); Chloride 105 mmol/L (98-107); Globulin 2.5 g/dL (1.3-4.6); Glucose 76 mg/dL (65-115); Magnesium 1.6 mg/dL (1.7-2.3); Osmolality Calculated 291 mOsm/kg (285-295); Potassium 4.5 mmol/L (3.5-5.1); Sodium 136 mmol/L (136-145); Total Bilirubin 0.6 mg/dL (0.15-1.2); Total Protein 6.2 g/dL (6.6-8.7)
[2021-05-03 06:33] LABS: Slide Review Slide Review Perform
[2021-05-03 06:44] LABS: Glucose Point of Care 80 mg/dL (70-110)
--- NOTE | 2021-05-03 08:00 | CT_ITS ---
WS: [id number] CT CHEST, ABDOMEN AND PELVIS WITHOUT CONTRAST. HISTORY: rule out pneumonia. Hx of diarrhea as well. look for colitis TECHNIQUE: Contiguous 5 mm axial imaging performed through the chest, abdomen and pelvis without IV c ontrast, oral contrast has not been provided. Coronal and sagittal reformats chest. Coronal and sagit portia reformats through the abdomen and pelvis. All CT scans at [facility] use at least one of these dose optimization techniques: automated exposure control; mA and/or kV adjustment per patient s ize (includes targeted exams where dose is matched to clinical indication); or iterative reconstructi on. CONTRAST: None DLP: 2664.32 mGy.cm COMPARISON: 01/19/[address]: Persistent bilateral airspace opacifications. Groundglass and nodular opacifications. Well- circumscribed nodule in the LEFT upper lobe measures 10 mm. Very minimally increased in size since 14. Heart is moderately enlarged. Prior CABG and dual lead LEFT subclavian pacer. Numerous mediastina l and hilar lymph nodes. Lymph nodes are all small but have slightly increased in size and number. La rgest lymph node is 9.5 mm along the posterior mediastinum adjacent to the esophagus. Small hiatal he rnia. Abdomen CT: Hepatic and splenic granulomata. Unenhanced liver is negative. Cholelithiasis within the gallbladder lumen. No acute cholecystitis. Spleen is increased in size since the prior study now gabbie uring 15.1 cm in length as compared to 11.7 cm in length. Negative pancreas and adrenal glands. Moder ate bilateral perinephric stranding similar to the prior study. There is a complex exophytic mass fro m the RIGHT kidney. The wall is thickened and increased attenuation. Moderate atherosclerosis of aort a. No aneurysm. No ascites. Small mesenteric and retroperitoneal lymph nodes. No enlarged lymph nodes . No increase in number. No GI tract obstruction or wall thickening. Measures 6.6 x [address]: Minimally distended urinary bladder. Prostate gland is slightly prominent. No free fluid o r adenopathy. Diffuse osteopenia. No osteoblastic or osteolytic bone lesions are identified. Remote healed rib frac tures in the posterior RIGHT thorax. CT/CT chest abd pel wo con IMPRESSION: 1. Mild increase in size and number of the mediastinal and hilar lymph nodes. May be reactive but early neoplastic disease cannot be excluded. 2. Diffuse bilateral pulmonary opacifications are stable since the prior exami [facility]. 3. Mild splenomegaly. Spleen has increased in size from 11.7 to 15.1 cm. 4. No evidence for colitis. 5. Large complex RIGHT renal cyst or cystic neoplasm. Stable over multiple jason or studies. 6. Cholelithiasis. 7. Moderate perinephric stranding.
[2021-05-03] MEDS: clopidogrel 75 mg Tablet PO (08:29)
[2021-05-03] MEDS: heparin 5,000 unit/mL INJ 1 mL 5000 UNIT SUBCUT (08:29)
[2021-05-03] MEDS: sodium bicarbonate 650 mg Tablet PO (08:29)
[2021-05-03] MEDS: doxycycline 100 mg Tablet PO (08:29)
[2021-05-03] MEDS: azithromycin 500 MG in sodium chloride 0.9% 250 ML 250 MG IV (08:32)
[2021-05-03] MEDS: piperacillin-tazobactam 3.375 GM in sodium chloride 0.9% (plus) 50 ML IV (08:40)
--- NOTE | 2021-05-03 11:45 | PM.PN ---
Subjective Subjective: Interval history: Seen this morning. Patient continues to have diarrhea. Nursing charted 1 bowel movement overnight but patient states he went 3 or 4 times throughout the night. Nursing reported bowel movement was green and seedy colored. They were able to obtain a sample to send out for C. difficile ova parasite and stool cultures. All results are pending at this point. Patient has been covered with Zosyn doxycycline for now. Procalcitonin was 1.33 on admission. Will repeat today. Patient also has a history of thrombocytopenia which is chronic at this point. CT abdomen reviewed. No evidence of colitis. No evidence of pneumonia on CT scan but does show stable bilateral opacities. Covid PCR is pending. Vitals/I&O/Wt Last Vital Signs Temp 98.1 F 05/03/21 08:00 Pulse 94 05/03/21 08:00 Resp 16 05/03/21 08:00 BP 123/59 05/03/21 08:00 Pulse Ox 94 05/03/21 08:00 05/02/21 05/03/21 05/03/21 22:59 06:59 14:59 Intake Total 910 / 2620 854.167 / 3474.167 1507.917 / 1507.917 Output Total 610 / 610 Balance 910 / 2620 244.167 / 2864.167 1507.917 / 1507.917 Weight last 48 hrs Weight 103.873 kg Weight 104.326 kg Physical Exam Narrative: EXAM NARRATIVE: General: Alert oriented x3, patient seen sitting up in bed appearing very comfortable. HEENT: Normocephalic, atraumatic, EOMI, breathing room air Cardio: Regular rate rhythm, normal S1-S2, no murmurs rubs gallops Respiratory: Good bilateral air entry, no wheezes no rhonchi appreciated GI: Abdomen soft, nontender, nondistended, bowel sounds +, obese rounded abdomen. No signs of acute abdomen at this time. No rebound tenderness. Behavior: Appropriate and cooperative Extremities: no edema, no cyanosis Data : 05/03/21 05:13 05/03/21 05:13 Micro: Microbiology 05/02/21 10:08 Legionella Urinary Antigen - Final Urine,Clean Catch Bacterial Antigens - Final 05/01/21 20:00 Blood Culture - Preliminary Blood NEGATIVE TO DATE 05/01/21 18:42 Blood Culture - Preliminary Blood NEGATIVE TO DATE A&P Assessment and plan (1) Dehydration: Status: Acute (2) Sepsis: Status: Acute Qualifiers: Sepsis acute organ dysfunction status: unspecified Sepsis type: sepsis due to unspecified organism Qualified Code(s): A41.9 - Sepsis, unspecified organism (3) Diabetes: Status: Chronic Qualifiers: Chronic kidney disease stage: stage 3 (moderate) Chronic kidney disease stage 3 subtype: stage 3b (GFR 30-44) Diabetes mellitus complication detail: with chronic kidney disease Diabetes mellitus complication status: with kidney complications Diabetes mellitus terminal clerk insulin use: with group home use Diabetes mellitus type: type 2 Qualified Code(s): E11.22 - Type 2 diabetes mellitus with diabetic chronic kidney disease; N18.32 - Chronic kidney disease, stage 3b; Z79.4 - 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 76-year-old brought in by family for confusion, cough, fever. Patient states that his main complaint was vomiting and diarrhea. He says he was not really confused but just a little forgetful. He knew where he was and he knew what was going on. Patient continues to report 4 episodes of diarrhea overnight. However nursing staff states he only had one episode which was green and seedy and they were able to obtain a sample him sent to lab. C. difficile, ova parasite screen and bacterial culture for stool is pending. I discussed with lab and they are still processing the sample. I will monitor patient off of antibiotics to see if the diarrhea improves. Diarrhea is possibly viral in etiology at this point but will rule out bacterial causes as well. #Residual changes on imaging from previous Covid pneumonia versus new community-acquired pneumonia Patient has been placed on Rocephin and doxycycline for now. Procalcitonin elevated 1.33. Lactic acid still elevated on afternoon labs today. I will place patient on normal saline 125 cc/h. WIll add 500 cc NS bolus. Patient is not producing any sputum and denies having a cough. Procalcitonin was elevated on admission. I will repeat today. There does not seem to be any evidence of bacterial pneumonia going on at this point. He has been afebrile. CT chest reviewed. Bilateral stable opacities seen. No evidence of consolidation. Covid PCR is pending. #DM - on lantus 50 units at home - Blood glucose lower inpatient will keep on sliding scale for now and hold long acting #CKD, at baseline creatinine - on bicarb tablets at home. Unsure if underlying RTA. Will review previous documentation. DVT PPX heparin Diet BRAT diet Attestations Medical Necessity Statement*: >48 hours. Time Spent in Patient Care: Greater than 35 minutes Coding Level of Care Code Acute Vp Genetic for [facility] Fwd Diagnoses Dehydration E86.0 Sepsis A41.9 Sepsis acute organ dysfunction status: unspecified Sepsis type: sepsis due to unspecified organism Diabetes E11.22; N18.32; Z79.4 Chronic kidney disease stage: stage 3 (moderate) Chronic kidney disease stage 3 subtype: stage 3b (GFR 30-44) Diabetes mellitus complication detail: with chronic kidney disease Diabetes mellitus complication status: with kidney complications Diabetes mellitus group home insulin use: with terminal clerk use Diabetes mellitus type: type 2 Dyslipidemia E78.5 CKD (chronic kidney disease) N18.9 Diarrhea R19.7 Coronary artery disease I25.10 CLL (chronic lymphocytic leukemia) C91.10 Pneumonia due to 2019 novel coronavirus U07.1; J12.82
[2021-05-03 11:59] LABS: Glucose Point of Care 87 mg/dL (70-110)
[2021-05-03 12:18] LABS: Procalcitonin 39.21 ng/mL (0-0.5)
[2021-05-03 12:47] LABS: Lactate (Lactic Acid level) 1.6 mmol/L (0.5-2.2)
[2021-05-03] MEDS: vancomycin 1,250 MG/250 ML PIGGYBACK 250 MG IV (16:21)
--- NOTE | 2021-05-03 16:54 | XR_ITS ---
WS: [id number] Chest 2 views, 05/04/2021 Clinical Data: edema Comparison: Portable chest, 05/01/2021. Findings: No nodules, masses or effusions are seen. There are still bilateral pulmonary opacities, mo re on the left than the right. The heart is normal. The pulmonary vascularity is not increased. No pn eumothorax is seen. 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 Midline sternotomy sutures are present. The aortic arch and descending thoracic aorta show tortuosity. XR/XR chest 2V* [id number] Impression: 1. No change in bilateral pulmonary opacities. 2. Atherosclerosis and permanent pacemaker.
[2021-05-03 16:58] LABS: Glucose Point of Care 94 mg/dL (70-110)
[2021-05-03] MEDS: atorvastatin 40 mg Tablet 10 MG PO (17:19)
[2021-05-03 21:20] LABS: Glucose Point of Care 90 mg/dL (70-110)
[2021-05-04 04:00] VITALS: BP 141/63; PULSE 88; RESP 14; TEMP 36.6; O2SAT 94
[2021-05-04 05:23] LABS: Hemoglobin 10.9 g/dL (11.7-16.6); Mean Corpuscular HGB Conc 31.1 g/dL (30.0-36.0); Mean Corpuscular Hemoglobin 28.4 pg (28.0-34.0); Mean Corpuscular Volume 91.1 fl (80-94); Mean Platelet Volume 9.6 fL (7.4-10.4); Platelet Count 80 10^3/cmm (130-400); Red Blood Count 3.84 10^6/uL (4.1-5.3); Red Cell Distribution Width 14.4 % (12.1-15.1); White Blood Count 10.5 10^3/uL (4.0-10.0)
[2021-05-04 05:44] LABS: Anion Gap 18.2 (5-19); Blood Urea Nitrogen 36 mg/dL (8-23); Calcium 8.6 mg/dL (8.5-10.5); Carbon Dioxide 18 mmol/L (22-29); Chloride 105 mmol/L (98-107); Glucose 128 mg/dL (65-115); Osmolality Calculated 294 mOsm/kg (285-295); Potassium 4.2 mmol/L (3.5-5.1); Sodium 137 mmol/L (136-145)
[2021-05-04 06:45] LABS: Glucose Point of Care 109 mg/dL (70-110)
[2021-05-04] MEDS: isosorbide mononitrate ER 30 mg Tablet PO (06:56)
[2021-05-04] MEDS: aspirin 81 mg EC Tablet PO (06:56)
[2021-05-04 07:46] LABS: Slide Review Slide Review Perform
[2021-05-04 07:49] LABS: Absolute Eosinophils 0.1 10^3/cmm (0.0-0.7); Absolute Segmented Neutrophil 4.4 10/cmm (1.6-7.1); Band Neutrophils Absolute 0.5 10^3/cmm (0.0-1.2); Blastocytes 8 % (0-0); Eosinophils 1 %; Lymphocytes 34 %; Lymphocytes Absolute 4.4 10^3/cmm (1.2-3.4); Monocytes Absolute 0.2 10^3/cmm (0.1-0.6); Segmented Neutrophils 42 %; Total Cells Counted 100 (0-100)
[2021-05-04 07:50] LABS: Absolute Neutrophil 4.9 10^3/cmm (1.4-6.5); Ovalocytes Trace; Platelet Estimate Decreased (Normal); Poikilocytosis Trace
[2021-05-04 08:00] VITALS: BP 150/67; PULSE 93; RESP 16; TEMP 36.6; O2SAT 95
[2021-05-04] MEDS: sodium bicarbonate 650 mg Tablet PO (09:20)
[2021-05-04] MEDS: clopidogrel 75 mg Tablet PO (09:20)
[2021-05-04 10:48] LABS: LAB Peripheral Smear Sent for Review
[2021-05-04 10:56] LABS: Glucose Point of Care 164 mg/dL (70-110)
[2021-05-04 11:21] VITALS: BP 152/77; PULSE 90; RESP 16; TEMP 36.5; O2SAT 95
--- NOTE | 2021-05-04 11:44 | PC.SOCIAL ---
IMM Update: pg 2 of IMM updated and reviewed w/ patient. Copy provided.
[2021-05-04] MEDS: fluticasone nasal spray 16gm Btl 1 SPRAY NASAL ×2 (12:45→20:13)
--- NOTE | 2021-05-04 13:53 | PC.CHAP ---
Pastoral Care Encounter/Spiritual Assessment Type of Contact [] Declined piece goods packer visit [] Patient/Family/Request visit [] Outpatient visit [] Follow-up visit [] Physician referral [] Code/Alert [] Routine visit [] Staff referral [] Actively dying [] Patient sleeping [] Family support [] [] Out of room [] Palliative care [] [] Receiving care in room [] Pre-surgical visit [] Trauma [] Long length of stay [] ICU visit [xx] Other: ISOLATION Relational/Emotional Strength [] Patient feels connected with others/family/visitors/staff [] Distress [] Loneliness/isolation [] Abandonment Spirituality of Patient [] Person of Trin[place] [] Attends Faith of their [place] [] Believes in Prayer [] Reads Bible or Latter Day materials [] There are Spiritual issues to be addressed Assistant Corporate Controller Interventions [] Prayer [] Active listening [] Non-anxious presence [] Spiritual/emotional support [] Crisis/trauma care [] Spiritual counseling [] Bereavement support [] Provided bereavement packet [] Provided Bible/devotional materials [] Provided toy/stuffed animal, coloring book to patient or family member [] Provided Communion [] Anointing/Concepcion [] Salvation [] Completed spiritual assessment [] Other: Impact on Illness or Injury [] Angry [] Fearful [] Anxious [] Often cries [] Exhaustion [] Unable to work [] Unable to attend sabianist [] Unable to walk/stand [] Unable to read [] Unable to drive [] Unable to eat/drink [] Unable to sleep [] Unable to be with family [] Patient intubated [] Other: Summary Time spent with patient
[2021-05-04 15:32] VITALS: BP 146/64; PULSE 89; RESP 16; TEMP 37; O2SAT 94
[2021-05-04 16:53] LABS: Coronavirus Test Green County Not Detected
[2021-05-04 17:05] LABS: Glucose Point of Care 154 mg/dL (70-110)
--- NOTE | 2021-05-04 17:20 | PM.PN ---
Subjective Subjective: Interval history: Seen this morning. The diarrhea has resolved. It seems as if it was antibiotic associated with Zosyn. Once Zosyn was stopped the diarrhea stopped. Patient feels well and back to normal. Family does state that patient's daughter and patient's both developed a similar course as the patient at home. They all ate out at a family potluck recently. Patient has been afebrile, white count went up to 10 today. Platelet counts went up to 80. Atypical lymphocytes high. Blast cells also seen today. Peripheral smear has been ordered. Vitals/I&O/Wt Last Vital Signs Temp 98.6 F 05/04/21 15:32 Pulse 89 05/04/21 15:32 Resp 16 05/04/21 15:32 BP 146/64 05/04/21 15:32 Pulse Ox 94 05/04/21 15:32 05/04/21 05/04/21 05/04/21 06:59 14:59 22:59 Intake Total 1160 / 1160 Output Total / 5 Balance 1160 / 1160 -5 / 1155 Physical Exam Narrative: EXAM NARRATIVE: General: Alert oriented x3, patient seen sitting up in bed appearing very comfortable. HEENT: Normocephalic, atraumatic, EOMI, breathing room air Cardio: Regular rate rhythm, normal S1-S2, no murmurs rubs gallops Respiratory: Good bilateral air entry, no wheezes no rhonchi appreciated GI: Abdomen soft, nontender, nondistended, bowel sounds +, obese rounded abdomen. No signs of acute abdomen at this time. No rebound tenderness. Behavior: Appropriate and cooperative Extremities: no edema, no cyanosis Data : 05/04/21 05:12 05/04/21 05:12 Micro: Microbiology 05/02/21 23:00 Enteric Pathogens (PCR) - Final Stool Routine Collection 05/02/21 10:08 Legionella Urinary Antigen - Final Urine,Clean Catch Urine Culture - Final Bacterial Antigens - Final 05/02/21 23:00 C.difficile Toxin B Gene (PCR) - Final Stool Routine Collection 05/02/21 17:50 MRSA Culture - Final Nose A&P Assessment and plan (1) Dehydration: Status: Acute (2) Sepsis: Status: Acute Qualifiers: Sepsis acute organ dysfunction status: unspecified Sepsis type: sepsis due to unspecified organism Qualified Code(s): A41.9 - Sepsis, unspecified organism (3) Diabetes: Status: Chronic Qualifiers: Diabetes mellitus type: type 2 Diabetes mellitus intermediate insulin use: with joint terminal attack controller use Diabetes mellitus complication status: with kidney complications Diabetes mellitus complication detail: with chronic kidney disease Chronic kidney disease stage: stage 3 (moderate) Chronic kidney disease stage 3 subtype: stage 3b (GFR 30-44) Qualified Code(s): E11.22 - Type 2 diabetes mellitus with diabetic chronic kidney disease; N18.32 - Chronic kidney disease, stage 3b; Z79.4 - terminal gauger (current) use of insulin (4) Dyslipidemia: Status: Chronic (5) CKD (chronic kidney disease): Status: Chronic (6) Diarrhea: Status: Acute (7) Coronary artery disease: Status: Acute (8) CLL (chronic lymphocytic leukemia): Status: Chronic (9) Pneumonia due to 2019 novel coronavirus: Status: Acute Additional A&P Information #CLL Worsening? #Residual changes on imaging from previous Covid pneumonia versus new community-acquired pneumonia #Sepsis secondary to green watery diarrhea that was antibiotic associated. - RESOLVED -Patient was brought in by family for confusion cough and fever. Main complaint was vomiting and diarrhea started shortly after he was in the hospital. C. difficile negative, bacterial stool culture panel also negative. -Patient was placed on Rocephin and doxycycline at admission. Procalcitonin elevated at 1.33. Lactic acid has now resolved. He was also given vancomycin and Zosyn briefly and once it was discontinued the diarrhea also resolved. He was then placed on vancomycin and imipenem due to procalcitonin elevating up to 39. It is possible that this is a bone marrow response at this point and would seem blast cells there is a question of CLL worsening. Peripheral smear has been ordered. Flow cytometry for leukemia and lymphoma has been ordered as well stat. I discussed with technology teacher Dr. Ray over the phone. If this is acute leukemia or transformation patient will need to be transferred as an inpatient to [facility] for higher level of care. Patient and family both of her and updated. I will discontinue antibiotics at this point. Stop vancomycin and stop imipenem as there is no evidence or active source of infection. Covid PCR is pending. #DM - on lantus 50 units at home - Blood glucose lower inpatient will keep on sliding scale for now and hold long acting #CKD, at baseline creatinine - on bicarb tablets at home. Unsure if underlying RTA. Will review previous documentation. DVT PPX heparin Diet: Change to regular diet. Daughter and pt updated. Attestations Medical Necessity Statement*: > 24 hour stay Coding Level of Care Code Acute Risk Control Product Liability Director for [facility] Fwd Diagnoses Dehydration E86.0 Sepsis A41.9 Sepsis acute organ dysfunction status: unspecified Sepsis type: sepsis due to unspecified organism Diabetes E11.22; N18.32; Z79.4 Diabetes mellitus type: type 2 Diabetes mellitus joint terminal attack controller insulin use: with intermediate use Diabetes mellitus complication status: with kidney complications Diabetes mellitus complication detail: with chronic kidney disease Chronic kidney disease stage: stage 3 (moderate) Chronic kidney disease stage 3 subtype: stage 3b (GFR 30-44) Dyslipidemia E78.5 CKD (chronic kidney disease) N18.9 Diarrhea R19.7 Coronary artery disease I25.10 CLL (chronic lymphocytic leukemia) C91.10 Pneumonia due to 2019 novel coronavirus U07.1; J12.82
[2021-05-04 17:33] LABS: Cytomegalovirus Antibody (IGG) >10.00 U/mL; Cytomegalovirus Antibody (IGM) <30.00 AU/mL
[2021-05-04] MEDS: atorvastatin 40 mg Tablet 20 MG PO (18:34)
[2021-05-04 20:00] VITALS: BP 177/80; PULSE 91; RESP 18; TEMP 36.6; O2SAT 93
[2021-05-04] MEDS: calcium carbonate 500 mg Chew Tablet PO (20:12)
[2021-05-04 20:40] LABS: Glucose Point of Care 244 mg/dL (70-110)
[2021-05-04] MEDS: insulin lispro 100 unit/1 mL SUBCUT (21:28)
[2021-05-05] VITALS: BP 137/61; PULSE 94; RESP 17; TEMP 36.6; O2SAT 92
[2021-05-05 04:00] VITALS: BP 154/68; PULSE 92; RESP 19; TEMP 36.6; O2SAT 93
[2021-05-05 06:24] LABS: Glucose Point of Care 211 mg/dL (70-110)
[2021-05-05] MEDS: isosorbide mononitrate ER 30 mg Tablet PO (06:29)
[2021-05-05] MEDS: aspirin 81 mg EC Tablet PO (06:29)
[2021-05-05 06:54] LABS: Hematocrit 32.2 % (42.0-52.0); Hemoglobin 10.5 g/dL (11.7-16.6); Mean Corpuscular HGB Conc 32.6 g/dL (30.0-36.0); Mean Corpuscular Hemoglobin 28.8 pg (28.0-34.0); Mean Corpuscular Volume 88.2 fl (80-94); Mean Platelet Volume 10.2 fL (7.4-10.4); Platelet Count 81 10^3/cmm (130-400); Red Blood Count 3.65 10^6/uL (4.1-5.3); Red Cell Distribution Width 14.2 % (12.1-15.1); White Blood Count 19.4 10^3/uL (4.0-10.0)
[2021-05-05 07:13] LABS: Blood Urea Nitrogen 34 mg/dL (8-23); Calcium 8.6 mg/dL (8.5-10.5); Carbon Dioxide 20 mmol/L (22-29); Chloride 106 mmol/L (98-107); Glucose 205 mg/dL (65-115); Osmolality Calculated 296 mOsm/kg (285-295); Sodium 136 mmol/L (136-145)
[2021-05-05 07:21] LABS: Absolute Eosinophils 0.5 10^3/cmm (0.0-0.7); Band Neutrophils Absolute 0.2 10^3/cmm (0.0-1.2); Eosinophils 3 %; Lymphocytes 26 %; Segmented Neutrophils 41 %; Total Cells Counted 100 (0-100)
[2021-05-05 07:22] LABS: Monocytes Absolute 1.4 10^3/cmm (0.1-0.6)
[2021-05-05 07:23] LABS: Absolute Neutrophil 8.1 10^3/cmm (1.4-6.5); Lymphocytes Absolute 6.2 10^3/cmm (1.2-3.4); Platelet Estimate Decreased (Normal)
[2021-05-05 07:28] LABS: Blastocytes 16 % (0-0)
[2021-05-05 08:00] VITALS: BP 160/75; PULSE 88; RESP 17; TEMP 36.8; O2SAT 93
[2021-05-05] MEDS: clopidogrel 75 mg Tablet PO (08:56)
[2021-05-05] MEDS: fluticasone nasal spray 16gm Btl 1 SPRAY NASAL (08:56)
[2021-05-05] MEDS: sodium bicarbonate 650 mg Tablet PO (08:56)
[2021-05-05] MEDS: insulin lispro 100 unit/1 mL SUBCUT ×2 (08:57→12:06)
[2021-05-05 11:18] VITALS: BP 173/82; PULSE 93; RESP 17; TEMP 36.4; O2SAT 96
[2021-05-05 12:00] LABS: Glucose Point of Care 223 mg/dL (70-110)
--- NOTE | 2021-05-05 14:09 | P.DS_ITS ---
Discharge Providers Date of Admission: 05/01/21 19:42 Date of Discharge: May 05, 2021 Attending Provider at Admission: Chaz Liu Attending Provider at Discharge: Danette Sabillon MD Primary Care Provider: Alejandro Macias MD Diagnoses at Discharge Discharge Diagnosis (1) Dehydration: Status: Resolved (2) Sepsis: Status: Resolved Qualifiers: Sepsis acute organ dysfunction status: unspecified Sepsis type: sepsis due to unspecified organism Qualified Code(s): A41.9 - Sepsis, unspecified organism (3) Diabetes: Status: Chronic Qualifiers: Chronic kidney disease stage: stage 3 (moderate) Chronic kidney disease stage 3 subtype: stage 3b (GFR 30-44) Diabetes mellitus complication detail: with chronic kidney disease Diabetes mellitus complication status: with kidney complications 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 Diabetes mellitus type: type 2 Qualified Code(s): 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 Liu: Valente Renae is a 76 year old male with past medical history of CLL, recent Covid, chronic kidney disease stage III-IV, BPH, anemia, diabetes, coronary artery disease, CABG, hypertension, permanent pacemaker, peripheral arterial disease, dyslipidemia who is brought by his family to emergency room due to confusion and some fever. The information is collected from the patient and his . According to his the patient was doing well until this morning. He woke up and vomited about 3 times. Mostly undigested food. He had mild confusion at that time. No chills or subjective fever. He also reports some dry cough and mild shortness of breath. In emergency room chest x-ray revealed bilateral infiltrates, fever, evidence of dehydration with elevated lactic acid level. Currently the patient feeling much improved after 1 bolus of IV fluids. The patient also reports decreased urine output. He is not sure whether he urinated today or not. He has history of BPH and has difficulties passing urine. He denies any abdominal pain. No diarrhea. He also denies any chest pain, palpitations. No blood in the emesis or stool. Denies any headache, neck stiffness. He reports similar confusion several months ago probably related to infection or Levaquin that he received for infection. Course: -Patient was brought in by family for confusion cough and fever. Main complaint was vomiting and diarrhea started shortly after he was in the hospital. C. diff icile negative, bacterial stool culture panel also negative. -Patient was placed on Rocephin and doxycycline at admission. Procalcitonin elevated at 1.33. Lactic acid has now resolved. He was also given vancomycin and Zosyn briefly and once it was discontinued the diarrhea also resolved. He was then placed on vancomycin and imipenem due to procalcitonin elevating up to 39. It is possible that this is a bone marrow response at this point and would seem blast cells there is a question of CLL worsening. Peripheral smear was ordered for the patient. Flow cytometry for leukemia and lymphoma was also ordered. Case was discussed with Dr. Ray/hematology over the phone who recommended to transfer the patient to higher level of care if there is acute leukemia/lymphoma on flow cytometry. Patient's daughter is a oil laboratory analyst. She came to the hospital on day of discharge. Blast cells did double from the previous day and possibility of transfer to another hospital was discussed with the patient and his daughter. They both declined transfer at this time. They stated that they would like to recheck labs on Friday and instead go see metal leaf layer in the office as an outpatient and then decide what to do further. Flow cytometry report is also not back yet. Patient does understand the implications of declining transfer at this time. Him and his daughter are both in agreement with the plan for discharge. If symptoms appear they will return to the ER. Right now patient is asymptomatic. Patient will follow with Dr. Ray this upcoming Friday for repeat labs. COVID PCR also negative. Physical Exam Narrative: EXAM NARRATIVE: General: Alert oriented x3, patient seen sitting up in recliner with daughter present at bedside appearing very comfortable. HEENT: Normocephalic, atraumatic, EOMI, breathing room air Cardio: Regular rate rhythm, normal S1-S2, no murmurs rubs gallops Respiratory: Good bilateral air entry, no wheezes no rhonchi appreciated GI: Abdomen soft, nontender, nondistended, bowel sounds +, obese rounded abdomen. No signs of acute abdomen at this time. No rebound tenderness. Behavior: Appropriate and cooperative Extremities: no edema, no cyanosis Discharge Data Data Completed and Pending: Completed Studies During Hospitalization Category Date Time Status CT chest abd pel wo con Routine Cat Scan 05/03/21 08:00 Completed XR chest 1V hamzah ble [id number] Stat Exams 05/01/21 18:00 Completed XR chest 2V* [id number] Stat Exams 05/03/21 16:54 Completed Pending at discharge Category Date Time Status Blood Culture Sta t Lab 05/01/21 20:00 Results Miscellaneous Kaylynn t Stat Lab 05/04/21 05:12 Received OVA and Parasites , Conc and PE Stat Lab 05/03/21 11:44 Received Sputum Culture an d Gram Stain Stat Lab 05/02/21 07:45 Uncollected Labs from last 24 hours 05/05/21 05/05/21 05/05/21 11:16 06:20 05:58 WBC RBC Hgb Hct MCV MCH MCHC RDW Plt Count MPV Total Counted Atypical Lymphs % Absolute Neutrophi ls Segmented Neutroph ils Abs Segm Neuts (Ma n) Band Neutrophils Abs Band Neuts (Ma n) Absolute Lymphocyt es Lymphocytes (Manua l) Monocytes (Manual) Absolute Monocytes Eosinophils (Manua l) Absolute Eosinophi ls Basophils (Manual) Absolute Basophils Blast Cells Platelet Estimate Sodium 136 Potassium 4.0 Chloride 106 Carbon Dioxide 20 L Anion Gap 14.0 BUN 34 H Creatinine 2.4 H GFR Calculation Not Reportable Glucose 205 H POC Glucose 223 H 211 H Calculated Osmolal ity 296 H Calcium 8.6 Nasal/Oral COVID-1 9 PCR CMV IgG Ab CMV IgM Ab 05/05/21 05/04/21 05/04/21 05:58 20:35 17:02 WBC 19.4 H RBC 3.65 L Hgb 10.5 L Hct 32.2 L MCV 88.2 MCH 28.8 MCHC 32.6 RDW 14.2 Plt Count 81 L MPV 10.2 Total Counted 100 Atypical Lymphs % 6.0 H Absolute Neutrophi ls 8.1 H Segmented Neutroph ils 41 Abs Segm Neuts (Ma n) 8.0 H Band Neutrophils 1.0 Abs Band Neuts (Ma n) 0.2 Absolute Lymphocyt es 6.2 H Lymphocytes (Manua l) 26 Monocytes (Manual) 7.0 Absolute Monocytes 1.4 H Eosinophils (Manua l) 3 Absolute Eosinophi ls 0.5 Basophils (Manual) 0.0 Absolute Basophils 0.0 Blast Cells 16 H* Platelet Estimate Decreased Sodium Potassium Chloride Carbon Dioxide Anion Gap BUN Creatinine GFR Calculation Glucose POC Glucose 244 H 154 H Calculated Osmolal ity Calcium Nasal/Oral COVID-1 9 PCR CMV IgG Ab CMV IgM Ab 05/03/21 05/02/21 05:13 17:50 WBC RBC Hgb Hct MCV MCH MCHC RDW Plt Count MPV Total Counted Atypical Lymphs % Absolute Neutrophi ls Segmented Neutroph ils Abs Segm Neuts (Ma n) Band Neutrophils Abs Band Neuts (Ma n) Absolute Lymphocyt es Lymphocytes (Manua l) Monocytes (Manual) Absolute Monocytes Eosinophils (Manua l) Absolute Eosinophi ls Basophils (Manual) Absolute Basophils Blast Cells Platelet Estimate Sodium Potassium Chloride Carbon Dioxide Anion Gap BUN Creatinine GFR Calculation Glucose POC Glucose Calculated Osmolal ity Calcium Nasal/Oral COVID-1 9 PCR Not detected CMV IgG Ab >10.00 H CMV IgM Ab <30.00 Vitals: Last Vital Signs Temp 97.6 F 05/05/21 11:18 Pulse 93 05/05/21 11:18 Resp 17 05/05/21 11:18 BP 173/82 05/05/21 11:18 Pulse Ox 96 05/05/21 11:18 Discharge Plan Discharge Patient Disposition: Home Condition: Stable Prescriptions: Continued nitroglycerin [Nitrostat] 0.4 mg tablet, sublingual 0.4 mg SUBLINGUAL Q5M PRN (Reason: Chest Pain) RF: 0 amlodipine 10 mg tablet 10 mg PO QAM RF: 0 cholecalciferol (vitamin D3) 25 mcg (1,000 unit) capsule 50 mcg PO DAILY RF: 0 glucosamine-chondroitin [Osteo Bi-Flex] 250-200 mg tablet 1 tab PO DAILY RF: 0 clopidogrel 75 mg tablet 75 mg PO DAILY RF: 0 magnesium oxide 400 mg magnesium capsule 400 mg PO DAILY RF: 0 atorvastatin 10 mg tablet 10 mg PO DAILY@18 RF: 0 losartan 100 mg tablet 100 mg PO DAILY RF: 0 docusate sodium [Colace] 100 mg Capsule 100 mg PO BID PRN (Reason: Constipation) RF: 0 fluticasone propionate [Flonase Allergy Relief] 50 mcg/actuation [place],Suspension 2 spray INTRANASAL BID RF: 0 isosorbide mononitrate 30 mg Tablet Extended Release 24 Hr 30 mg PO QAM RF: 0 aspirin 81 mg Tablet,Delayed Release (Dr/Ec) 81 mg PO QAM RF: 0 acetaminophen 500 mg Tablet 1,000 mg PO Q4H PRN (Reason: Pain) RF: 0 Lantus U-100 Insulin 100 unit/mL Solution See Rx Instructions .ROUTE .COMPLEX RF: 0 Novolin R Regular U-100 Insuln 100 unit/mL Solution See Rx Instructions .ROUTE .COMPLEX RF: 0 Claritin 10 mg Tablet 10 mg PO DAILY RF: 0 diclofenac sodium 1 % Gel 4 g TOPICAL QID PRN (Reason: Pain) RF: 0 isosorbide mononitrate 60 mg tablet extended release 24 hr 60 mg PO QAM RF: 0 tamsulosin 0.4 mg capsule 0.4 mg PO BID RF: 0 sodium bicarbonate 650 mg tablet 650 mg PO DAILY RF: 0 No Action up4 Probiotics Adult 50 Plus 25 billion cell capsule PO RF: 0 furosemide [Lasix] 20 mg tablet 20 mg PO BID Qty: 30 RF: 0 Discharge Orders: Discharge Order (Routine); Ordered 05/05/21 Ordered By: Danette Sabillon Other Ambulatory Orders: Complete Blood Count w/Man Dif (Routine) Timeframe: [id number] Facility: [facility] - Location: Lab - Main Lab Ordered By: Danette Sabillon Referrals: Alejandro Macias MD [Primary Care Provider] - 05/10/21 1:45 pm Dina Ray MD [Staff Physician] - 1-3 days (Urgent follow up needed. Prefer Friday) Discharge Diet: Usual diet Discharge Activity: Increase activity as tolerated Patient Instructions: Diarrhea - Adult, Dehydration (GEN), Opioid Safety Activity Restrictions/Additional Instructions: Return to ER if new symptoms develop (discussed in detail with family and patient). Have labs re-drawn first thing FridayMay 07. Call Dr Ray's office to be seen Friday. Patient understands risk of being discharged and has declined transfer to [facility]. Flow cytometry report for lymphoma/leukemia panel is pending (patient and family is aware). Discharge Attestations Time Spent in Discharge Care*: less than 30 min Quality Metrics Clinical Quality Measures During this hospital stay, did patient experience: None Coding Level of Care Code Acute Chg FW DC note Diagnoses Dehydration E86.0 Sepsis A41.9 Sepsis acute organ dysfunction status: unspecified Sepsis type: sepsis due to unspecified organism Diabetes E11.22; N18.32; Z79.4 Chronic kidney disease stage: stage 3 (moderate) Chronic kidney disease stage 3 subtype: stage 3b (GFR 30-44) Diabetes mellitus complication detail: with chronic kidney disease Diabetes mellitus complication status: with kidney complications 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
[2021-05-05 14:48] VITALS: BP 173/82; PULSE 93; RESP 17; TEMP 36.4; O2SAT 96
== END 2021-05-05 14:49 | disposition home or self-care (01) | DRG 871 ==
LOC: ER 19:43 → MEDSURG 20:38
PROVIDERS: Nurse Practitioner Family; Admitting Provider Internal Medicine; Emergency Provider Emergency Medicine; PCP Family Medicine; Visit Provider Internal Medicine
DX: A41.9 Sepsis, unspecified organism (principal); G93.41 Metabolic encephalopathy; J18.9 Pneumonia, unspecified organism; C91.10 Chronic lymphocytic leukemia of B-cell type not having achieved remission; K52.1 Toxic gastroenteritis and colitis; T36.0X5A Adverse effect of penicillins, initial encounter; U09.9 Post COVID-19 condition, unspecified; E11.22 Type 2 diabetes mellitus with diabetic chronic kidney disease; I12.9 Hypertensive chronic kidney disease with stage 1 through stage 4 chronic kidney disease, or unspecified chronic kidney disease; N18.32 Chronic kidney disease, stage 3b; D63.1 Anemia in chronic kidney disease; E86.0 Dehydration; D69.6 Thrombocytopenia, unspecified; E78.5 Hyperlipidemia, unspecified; N40.1 Benign prostatic hyperplasia with lower urinary tract symptoms; R39.198 Other difficulties with micturition; I25.10 Atherosclerotic heart disease of native coronary artery without angina pectoris; E11.51 Type 2 diabetes mellitus with diabetic peripheral angiopathy without gangrene; R11.10 Vomiting, unspecified; Z95.1 Presence of aortocoronary bypass graft; Z95.0 Presence of cardiac pacemaker; Z79.4 Long term (current) use of insulin; Z90.79 Acquired absence of other genital organ(s); Z79.82 Long term (current) use of aspirin
CPT/HCPCS: 36415; 36416; 51798; 71045; 71046; 71250; 74176; 80048; 80053; 80500; 81001; 82607; 82803; 82962; 83605; 83735; 83880; 84100; 84145; 84443; 85007; 85025; 85027; 86403; 87040; 87086; 87177; 87209; 87426; 87449; 87493; 87506; 87635; 87641; 87804; 88184; 88185; 96365; 96366; 96367; 96372; 97165; 99285; J0456; J0610; J0696; J0743; J1644; J1815 ×2; J2405; J2543; J3370; J3475; J7030; J7040; J7050

== ENCOUNTER 2021-05-07 09:18 | Outpatient (CLI) | payer MEDICARE, OTHER, SELFPAY ==
[2021-05-07 10:00] LABS: Basophils % 0.1 %; Eosinophils # 0.2 10^3/uL (0.0-0.8); Eosinophils % 0.7 %; Hematocrit 30.6 % (42.0-52.0); Hemoglobin 9.9 g/dL (11.7-16.6); Lymphocytes # 5.3 10^3/uL (0.8-4.8); Lymphocytes % 16.8 %; Mean Corpuscular HGB Conc 32.4 g/dL (30.0-36.0); Mean Corpuscular Hemoglobin 28.6 pg (28.0-34.0); Mean Corpuscular Volume 88.4 fl (80-94); Mean Platelet Volume 9.4 fL (7.4-10.4); Monocytes # 22.5 10^3/uL (0.2-0.9); Monocytes % 71.7 %; Neutrophils # 3.33 10^3/uL (1.8-7.7); Neutrophils % 10.5 %; Nucleated Red Blood Cells % 0 %; Platelet Count 72 10^3/cmm (130-400); Red Blood Count 3.46 10^6/uL (4.1-5.3); Red Cell Distribution Width 14.1 % (12.1-15.1)
[2021-05-07 10:40] LABS: White Blood Count 31.4 10^3/uL (4.0-10.0)
[2021-05-07 10:42] LABS: Slide Review Slide Review Perform
[2021-05-07 13:37] LABS: Segmented Neutrophils 12 %; Total Cells Counted 100 (0-100)
[2021-05-07 13:38] LABS: Lymphocytes 68 %
[2021-05-07 13:40] LABS: Blastocytes 6 % (0-0); Platelet Estimate Decreased (Normal)
--- NOTE | 2021-05-21 07:51 | ONC FU_ITS ---
[facility] Patient Note Patient: Valente Renae Unit #: [id number]: 1945 Dictated By: Naga SantamariaDate of Visit: May 07, 2021 Onc MED Follow-Up/Prog Note Chief Complaint: Chronic lymphocytic leukemia. History of Present Illness: Mr Renae is a 76 year-old man with chronic lymphocytic leukemia, Kwok stage III. Dr Mann had seen him initially in January of 2010 with a mild anemia and thrombocytopenia. At that time, he had been having episodes of low-grade fever with chills and generalized aching. Bone marrow aspiration/biopsy in February of 2010 was mildly hypercellular. It also showed evidence of a monoclonal B-cell lymphoproliferative process consistent with chronic lymphocytic leukemia. It comprised approximately 50% of the marrow cellularity. At that time the leukemia did not appear to be symptomatic, and he was initially just managed with observation. On a followup visit in November 2013 he had reported having 2 more febrile episodes. At that time he was noted to be mildly anemic with hemoglobin 10.7 g and his platelet count was normal at 144,000. His white blood cell count was elevated at 37,000, but that actually was down compared to the study the previous March. His LDH level was significantly elevated at 404/241 units per liter. Bone marrow aspiration/biopsy on 12/22/2013 showed 90 to 100% cellularity with the differential showing 72% lymphocytes. The chromosome analysis showed trisomy [address] scans showed interval splenomegaly with hamzah hepatis lymphadenopathy, the largest measuring 1.8 and 1.9 cm. Also noted was a 9 mm noncalcified pulmonary nodule in the left upper lobe. Dr Mann had talked to him about the possibility of starting treatment, which he indicated he wanted to put off as long as possible. Followup laboratory studies in December 2013 showed some increase in his lymphocyte count. His hemoglobin was stable and his platelet count was just borderline low. His LDH level had returned to normal, and it was opted to continue observation. During subsequent follow-up he continued to have occasional episodes of fever/chills, sometimes associated with nausea/vomiting and diarrhea. He was hospitalized again in January 2015. A subsequent HIDA scan showed no evidence of biliary obstruction, but the gallbladder ejection fraction was low at 19%. More recently he had been having pain in the right flank and right side of the back. He was noted to have a large cyst in the right kidney, and he underwent percutaneous drainage of the cyst on 07/24/2015. That procedure precipitated another spell . Dr Mann had seen him for a follow-up visit on 08/09/2015. As there was no other obvious explanation for his symptoms, we opted to initiate treatment for the chronic lymphocytic leukemia. He returned on 08/22/2015 to begin cycle one of bendamustine/Rituxan. He did not complete treatment that day because of a mild infusion reaction with the Rituxan. However, with premedication, he was then able to complete his first cycle of treatment on 08/23 and 08/25/2015 with no acute toxicity. However, he subsequently presented with a generalized erythematous, itchy skin eruption. It was undoubtedly a hypersensitivity reaction, most likely to either the Rituxan or to the bendamustine. Allopurinol also was a possibility, though. He was given a short course of systemic steroid followed by topical steroid therapy. He returned 2 days later with swelling in the left arm. Venous Doppler showed features of thrombosis of the left cephalic vein from the anterior cubital fossa to the biceps. Other veins were noted to be patent. As such, I felt there was no definite indication for anticoagulation. On a followup visit in October 2015, the swelling and the skin eruption had resolved. He was feeling much better, and his hemoglobin had increased significantly, to 12.7 g. I did not attempt any further treatment. He was then continued on observation/expectant management. As of his follow-up visit on 08/22/2016 his white blood cell count was just mildly elevated at 17,000 with hemoglobin stable at 13.0 g and platelet count 135,000. He was seen again for a follow-up visit on 12/17/2016. His white blood cell count had increased to 42,000, his hemoglobin was stable at 12.8 g and his platelet count was normal at 148,000. He reported that a week earlier he did experience another episode of nausea/vomiting and chills. Fever was suspected but not documented. At the time of that visit his symptoms had improved significantly, and I opted to just continue with observation. As of his followup visit on 04/23/2017 he had experienced 2 further episodes with fever and nausea/vomiting. Both lasted only a few days and resolved without specific treatment. He had otherwise been feeling good. His white count at that point it increased to 58,000. Hemoglobin/hematocrit levels were stable. The platelet count was mildly decreased at 115,000. He continued observation/expectant management. He was seen for a follow-up visit again on 11/03/2017. At that point his white blood cell count had increased to 76,800 with his hemoglobin mildly decreased to 10.8 g and platelet count mildly decreased at 101,000. He appeared to be getting more overtly symptomatic, and at that point Dr Mann did recommend that he begin second line treatment with ibrutinib. In preparation for starting the ibrutinib, he began prophylaxis with allopurinol 300 mg daily. He broke out with an erythematous skin eruption after the first dosage, and it was put on hold. He was then given a prescription for Uloric, but that he also stopped after the first dosage because of concerns of side effects. Ultimately, Dr Mann did opt to treat him prophylactically with rasburicase, as it was felt that he would be at very high risk for tumor lysis. He was given a single dose of rasburicase on 02/11/2018. He then started ibrutinib 420 mg daily on 02/12/2018. During subsequent follow-up, his white blood cell count had initially remained stable or slightly increased, but there was some improvement in the hemoglobin/hematocrit levels. As of 06/19/2018 the hemoglobin was 11.5 g with white blood cell count 82,000 and platelet count 133,000. He continued ibrutinib at 420 mg daily. He was seen for a scheduled visit on 09/14/2018. At that time he had multiple complaints including fatigue, excessive somnolence, and some confusion. His blood counts looked okay, but with those changes Dr Mann did opt to have him stop the ibrutinib. As of his follow-up visit on 10/07/2018 he was feeling somewhat better, and he continued on observation/expectant management. On 11/03/2018 he had reported recurrence of fever/chills and nausea. He was given IV hydration for 2 days, and his symptoms improved. The preceding week he had required IV hydration for similar symptoms. At that point it did appear likely that his CLL had become symptomatic again. On 12/03/2018 he restarted treatment with ibrutinib at a reduced dosage of 280 mg daily. At day 15 he was given an infusion of rasburicase due to an increase in his uric acid level. During further follow-up, there was an increase in his lymphocyte count, as expected, but he was otherwise tolerating the treatment well. Dr Mann had seen him for a follow-up visit on 01/27/2019. At that point he had developed severe muscle cramping, and I did opt to put his ibrutinib on hold. On 02/14/2019 he was admitted to the hospital after presenting to the emergency room with chest pain. He was hypertensive, and his creatinine at increased to 3.2 mg/dL. He had a slightly elevated troponin, significance of which was uncertain. A nuclear stress test showed some olvin-infarct ischemia, but mild. He had cardiology consultation with Dr. Orellana, and medical management was recommended. At discharge his creatinine had come back down to 2.8 mg/dL. Metoprolol was added to his medication regimen. He was seen for a follow-up visit on 02/24/2019. At that point he was acutely ill with another sick spell , including nausea/vomiting and diarrhea. He was given IV hydration and symptomatic management. His ibrutinib remained on hold. As of his follow-up visit on 03/03/2019 he was feeling better, and at that point he restarted ibrutinib with a further dose reduction to 140 mg daily. As of his follow-up visit in December 2019 there has been some further decline in his lymphocyte count. His other blood counts remained adequate, and he continued the ibrutinib at 140 mg daily. His other medical illnesses include hypertension, hyperlipidemia, type 2 diabetes, and coronary artery disease. He also has chronic kidney disease which has progressed to stage IV. In October 2014 he was admitted to the hospital with complete heart block, and he underwent placement of a permanent pacemaker. INTERIM HISTORY: Dr Mann had seen him for a follow-up visit on 12/12/2020. At that point he was mildly anemic and also had mild thrombocytopenia. He had experienced a significant decline in his performance status. At least some appear to be related to an injury he had sustained at home. At that point he continued ibrutinib 140 mg daily. On 01/08/2021 he was admitted to the hospital with COVID-19 virus pneumonia. He had a complicated clinical course, requiring 2 subsequent hospitalizations. He was discharged home on 01/29/2021. With the initial hospitalization, Dr Mann had recommended that they stop his ibrutinib. He was seen in January 2021 for a follow-up visit. He was starting to feel a little better, but he was becoming fatigued very quickly and his activity was still very limited. His ECOG score was 3. His weight was down 25 pounds since his visit in November. He did not have fever or night sweats. His followup plan was to continue to just follow him off treatment. If there is more clear evidence that the CLL is symptomatic, the plan would be to initiate treatment with venetoclax, either as a single agent or possibly in combination with rituximab. Mr. Renae was admitted to [facility] on 05/01/2021 with chief complaint of fever and generalized weakness. He had been feeling bad for about 2 to 3 days prior to his admission but presented to the ER with 103 fever. He had had emesis prior to his admission on presentation to the ER. In the ER, chest x-ray revealed bilateral infiltrates and he was admitted to hospitalist services. He was admitted with diagnosis of acute metabolic encephalopathy and acute pneumonia. He was given Rocephin doxycycline on admission procalcitonin level elevated at 1.33 and lactic acid had resolved after rehydration. He was given vancomycin and Zosyn briefly and was discontinued after the diarrhea resolved. He was then placed on vancomycin and imipenem due to the pro calcitonin elevated up to 39. There is also noted to be blast in his CBC which Dr. Sabillon commented concern for worsening of the CLL. Flow cytometry was pending at discharge. He did test negative for Covid PCR. He was discharged on 05/05/2021 with discharge diagnoses being dehydration and sepsis. Mr. Renae is here today for post hospital follow-up. He was due to see Dr. Mann today but unfortunate Dr. Mann is out of the office. He states overall he is feeling much better. He has had no further confusion fever, diarrhea or other concerns. He did have his blood counts rechecked today and his white count is 31.4 globin 9.9 platelets 72,000 and ANC is 3330. His flow cytometry is still pending at time of visit. He states overall he is felt better. He is feeling more tired but states is not as bad as his last visit. He is accompanied by his and his daughter Brooke. We discussed at length his hospitalization and evidence of his blood counts changing. They are certainly aware that the flow cytometry is still pending and are aware that we will call them once that is available. His ECOG is 2 today. Mr. Renae states this was one of his spells he has with the CLL. And he is concerned that his CLL is progressing. Past Medical History: Chronic kidney disease (stage III) Coronary artery disease Diabetes type II (Treated) Hyperlipidemia (Treated) Hypertension (Treated) Covid 19 in 2020 Leukemia in 2009 Anemia in 2009 Past Surgical History: Appendectomy Removal of benign growth - from left testicle Stent placement in 2018 Pacemaker placement in 2014 Bone marrow aspiration in 2009 Bone marrow biopsy in 2009 Angioplasty/Stent in 2005 Quadruple bypass in 2004 Allergies: Allopurinol, Iodine, and Levaquin. Medications: Aspirin 1 (81 mg) Tablet Oral daily Atorvastatin Calcium 1 Tablet (of 40 mg) Oral daily Cholecalciferol 1 (50 mcg) Tablet Oral daily Clopidogrel Bisulfate 1 Tablet (of 75 mg) Oral daily Correctol Extra Gentle 1 Capsule (of 100 mg) Oral b.i.d. PRN Finasteride 1 Tablet (of 5 mg) Oral daily Flonase 1 (50 mcg/act) Suspension Nasal daily Glucosamine Chond Cmp Advanced 1 Tablet Oral daily Isosorbide Mononitrate ER 1 Tablet (of 90 mg) Tablet SR 24 HR Oral daily Lantus 15 Units (of 100 Units/mL) Subcutaneous daily Nitroglycerin Tablet, sublingual Sublingual PRN Nitroglycerin Tablet, sublingual Sublingual PRN Norvasc 1 (10 mg) Tablet Oral daily NovoLOG (100 Units/mL) Subcutaneous Take as Directed Sodium Bicarbonate 1 Tablet Oral q 8 hours Tamsulosin HCl 1 Capsule Oral daily Tylenol 2 (325 mg) Tablet Oral q 4 hours PRN Family History: Mr. Renae's mother at age 73: medical history includes diabetes and Heart disease. Mr. Renae's father at age 59: suicide. Mr. Renae's maternal grandmother is : medical history includes diabetes. His paternal grandmother is : medical history includes diabetes. Mr. Renae has 1 brother with an unknown alive status: medical history includes Heart disease. Social History: Mr. Renae is and he is retired. Mr. Renae no longer smokes. He drinks occasionally. He has indicated exposure to the following products: cigarettes. Review Of Symptoms: <See Above> Vital Signs: Performed on May 07, 2021 11:18 Height - 71.00 in Weight - 249.6 lbs (HIGH) BSA - 2.32 sq.m BMI - 34.81 (HIGH) Temperature - 97.6 F (LOW) Pulse - 94 /min Respiration - 18 /min BP - 172/74 mm(hg) (HIGH) O2 Sat - 96 % Pain - 0 Fatigue - 4,2 - Ambulatory/capable of all self-care, unable to perform any work activities. Up and about more than 50% of waking hours. (ECOG) Physical Examination: Constitutional Alert, oriented, no acute distress. Skin pink, warm and dry. Head Normocephalic; atraumatic. Eyes Conjunctivae and sclerae are clear and without icterus. Pupils are reactive and equal. ENMT No oral exudates, masses, thrush or mucositis. Oropharynx clear. Tongue normal. Neck Supple without masses or thyromegaly. No jugular venous distension. Hematologic/Lymphatic No petechiae or purpura. No tender or palpable lymph nodes in the cervical or supraclavicular area. Respiratory Lungs are clear to auscultation without rhonchi or wheezing. Cardiovascular Regular rate and rhythm of heart without murmurs,clicks, gallops or rubs. Back/Spine Non-tender to palpation. Musculoskeletal No tenderness or swelling, normal range of motion without obvious weakness. Integumentary No evidence of blistering, bruising, dry skin, erythema, nails changes, rash and urticaria. Neurologic No sensory or motor deficits, normal cerebellar function, normal gait. Psychiatric Alert and oriented times three. Coherent speech. Verbalizes understanding of our discussions today. Laboratory:Test performed on May 07, 2021 09:50 WBC 31.4 10 3/uL Manual Segs % 12 % RBC 3.46 10 6/uL HGB 9.9 g/dL Manual Lymphs % 68 % Atypical Lymphs % 3.0 % HCT 30.6 % MCV 88.4 fl Total Cells Counted 100 Manual Monos % 11.0 % MCH 28.6 pg MCHC 32.4 g/dL RDW 14.1 % Platelet Count 72 10 3/cmm MPV 9.4 fL Neutrophils 3.33 10 3/uL Lymphocytes 5.3 10 3/uL Blasts % 6 % Monocytes 22.5 10 3/uL Eosinophils 0.2 10 3/uL Basophils 0.0 10 3/uL Neutrophil % 10.5 % Lymphocyte % 16.8 % Monocyte % 71.7 % Eosinophil % 0.7 % Basophils % 0.1 % NRBC % 0 % CBC Slide Review Slide Review Perform SLIDE REVIEWED AGREES WITH THE AUTO RESULT AND THE PREVIOUS MANUAL DIF. Platelet Estimate Decreased Impression: 1. Chronic lymphocytic leukemia, initially diagnosed in February 2010. 2. Hypertension. 3. Hyperlipidemia. 4. Type II diabetes. 5. Chronic kidney disease. 6. Coronary artery disease. 7. History of complete heart block, requiring placement of permanent pacemaker. Plan/Problems Addressed at this Visit: 1. Chronic lymphocytic leukemia, initially diagnosed in February 2010. He was initially managed with observation, as he had multiple other medical illnesses and he desired conservative management. During his follow-up he continued to have wide fluctuations in his lymphocyte count, for which no rational explanation was found. He also had remained mildly anemic. His platelet counts had varied between low normal to mildly decreased. On several occasions his LDH level had been significantly elevated, but it was never consistently elevated. Following his visit in July 2015 Dr Mann did opt to proceed with a trial of therapy with bendamustine/Rituxan. He had a mild infusion reaction with the initial attempt at the Rituxan infusion, and it was abandoned. He then returned on 08/24/2015 and with steroid premedication he was able to complete cycle 1 of bendamustine/Rituxan with no acute toxicity. He had subsequently presented with generalized erythroderma, consistent with hypersensitivity reaction to his treatment. The skin eruption subsequently resolved. It was never determined with certainty whether the reaction was to Rituxan, to bendamustine, or to allopurinol. However, he did have a very good response to the treatment. As of his follow-up visit on 11/03/2017 he has been showing a gradual increase in his lymphocyte count, and it appeared that his disease was getting symptomatic again. He ulltimately started treatment with ibrutinib 420 mg daily on 02/12/2018. He had a good clinical response, and he initially tolerated it well. However, as of his follow-up visit on 09/14/2018 his ibrutinib was put on hold due to multiple complaints including fatigue, excessive somnolence, and confusion. During subsequent follow-up his blood counts had remained adequately controlled, though he continued to have significant fatigue. On 12/03/2018 he restarted treatment with ibrutinib at a reduced dosage of 280 mg daily. At day 15 he was given an infusion of rasburicase due to an increase in his uric acid level. During further follow-up there was an increase in his lymphocyte count, as expected, but he had no further sick spells or other obvious CLL related symptoms. At his follow-up visit on 01/27/2019 he complained of severe muscle cramping, and his ibrutinib was put on hold. On 02/14/2019 he was admitted to the hospital with chest pain. He was also hypertensive, and his creatinine had increased to 3.2 mg/dL. He was seen by Dr. Orellana, and medical management was recommended. Metoprolol was added to his medication regimen. At discharge his creatinine had come down to 2.8 mg/dL. As of his follow-up visit on 03/03/2019 he restarted ibrutinib with a further dose reduction to 140 mg daily. During follow-up there was an increase in his lymphocyte count, as expected, but that had subsequently stabilized, and during further follow-up the lymphocyte count began to gradually decline. He remained mildly anemic and he continued to have mild thrombocytopenia. As of his follow-up visit in December 2019 his overall clinical status appeared stable, and he continued the ibrutinib at 140 mg daily. During subsequent follow-up he had experienced a significant decline in performance status. This appeared to be due at least in part to an injury he had sustained at home. As of his follow-up visit on 12/12/2020 he was mildly anemic and his platelet count was a little low. He continued ibrutinib at 140 mg daily. On 01/08/2021 he was admitted to the hospital with COVID-19 virus pneumonia. He had a complicated clinical course, but he does appear to be showing recovery now. At this point he still has mild to moderately severe anemia, but his lymphocyte count is just mildly elevated and his platelet count is normal. It is uncertain to what extent the anemia may be due to his recent illness, to the underlying chronic kidney disease, or to the CLL. His followup plan was to continue to just follow him off treatment. A. Today's labs reviewed in detail and discussed with Mr. Renae and his daughter Brooke and a copy was given to them. They are aware of the flow cytometry from his discharge is still pending. I am he is quite concerned regarding the blast but states that they did decrease on the last check. B. Based on Dr. Mann's January 2021 note and comment- If there is more clear evidence that the CLL is symptomatic, the plan would be to initiate treatment with venetoclax, either as a single agent or possibly in combination with rituximab -I will go ahead and request a PA for venetoclax Rituxan treatment. We will schedule Mr. Renae to discuss this with Dr. Mann prior to initiation of course. C. He will need prophylactic rasburicase pending on his most recent CT results. Mr. Renae had CT of the chest abdomen pelvis without contrast on 05/03/2021. Reported persistent bilateral airspace opacifications. Groundglass and nodular opacifications. Well circumcised nodule in the left upper lobe measures 10 mm. Very minimally increased since 2013. Heart is moderately enlarged. Prior CABG in dual-lead left subclavian pacer noted. Numerous mediastinal and hilar lymph nodes. Lymph nodes are all small but have increased in size and number. Largest lymph node measures 9.5 mm along the posterior mediastinum adjacent to the esophagus. He also had a small hiatal hernia. The abdomen reported hepatic and splenic granulomata,. Enhanced liver is negative. Cholelithiasis within the gallbladder lumen no acute cholecystitis. Spleen is increased in size since the prior study now measuring 15.1 cm as compared to 11.7 cm in the last study. Negative pancreas and adrenal glands. Moderate bilateral perinephric stranding similar to the prior study. There is a complex exophytic mass from the right kidney. The wall is thickened and increased in attenuation. Moderate to sclerosis of the aorta. No aneurysm no ascites small mesenteric and retrocrural lymph nodes. No enlarged lymph nodes and no increase in number. No GI tract obstruction or wall thickening. Diffuse osteopenia no blastic or osteolytic bone lesions were identified remote healed rib fractures in the posterior right thorax. Signed By: Naga Santamaria-, [facility] Gagandeep Mann MD <<Signature on File>>
== END 2021-05-07 09:19 | disposition home or self-care (01) ==
PROVIDERS: PCP Family Medicine; Visit Provider Nurse Practitioner
DX: C91.10 Chronic lymphocytic leukemia of B-cell type not having achieved remission (principal); L27.0 Generalized skin eruption due to drugs and medicaments taken internally; D64.9 Anemia, unspecified
CPT/HCPCS: 36415; 85007; 85025; 99214

== ENCOUNTER → 2021-05-08 16:09 | Outpatient (BNVA) | payer MEDICARE, OTHER, SELFPAY | PROVIDERS: PCP Family Medicine; Visit Provider Internal Medicine | DX: N18.9 Chronic kidney disease, unspecified (principal); E78.5 Hyperlipidemia, unspecified; I25.10 Atherosclerotic heart disease of native coronary artery without angina pectoris; I65.23 Occlusion and stenosis of bilateral carotid arteries | CPT/HCPCS: 80048; 83880 ==

== ENCOUNTER 2021-05-14 10:56 | Outpatient (CLI) | payer MEDICARE, OTHER, SELFPAY ==
[2021-05-14] MEDS: sodium chloride 0.9% 1,000 ML 999 ML IV (11:45)
[2021-05-14] MEDS: ondansetron 2 mg/ML SDV 2 mL 8 MG IVP (11:55)
== END 2021-05-14 10:57 | disposition home or self-care (01) ==
PROVIDERS: PCP Family Medicine; Visit Provider Internal Medicine Medical Oncology
DX: C91.10 Chronic lymphocytic leukemia of B-cell type not having achieved remission (principal); D64.9 Anemia, unspecified; L27.0 Generalized skin eruption due to drugs and medicaments taken internally
CPT/HCPCS: 96361; 96374; J2405; J7030

== ENCOUNTER 2021-05-15 07:05 | Outpatient (CLI) | payer MEDICARE, OTHER, SELFPAY ==
[2021-05-15 10:10] LABS: Hematocrit 32.8 % (42.0-52.0); Hemoglobin 10.7 g/dL (11.7-16.6); Mean Corpuscular HGB Conc 32.6 g/dL (30.0-36.0); Mean Corpuscular Hemoglobin 27.9 pg (28.0-34.0); Mean Corpuscular Volume 85.6 fl (80-94); Mean Platelet Volume 8.9 fL (7.4-10.4); Platelet Count 141 10^3/cmm (130-400); Red Blood Count 3.83 10^6/uL (4.1-5.3); Red Cell Distribution Width 14.6 % (12.1-15.1); White Blood Count 11.1 10^3/uL (4.0-10.0)
[2021-05-15] MEDS: ondansetron 2 mg/ML SDV 2 mL 8 MG IVP (10:15)
[2021-05-15] MEDS: sodium chloride 0.9% 1,000 ML 999 ML IV (10:15)
[2021-05-15 10:27] LABS: Alanine Aminotransferase 20 U/L (0-41); Albumin Level 3.5 g/dL (3.5-5.2); Alkaline Phosphatase 66 IU/L (40-130); Anion Gap 18.1 (5-19); Aspartate Amino Transferase 24 U/L (0-40); Blood Urea Nitrogen 30 mg/dL (8-23); Calcium 8.2 mg/dL (8.5-10.5); Carbon Dioxide 23 mmol/L (22-29); Chloride 101 mmol/L (98-107); Globulin 2.6 g/dL (1.3-4.6); Glucose 98 mg/dL (65-115); Lactate Dehydrogenase 505 U/L (135-225); Osmolality Calculated 292 mOsm/kg (285-295); Potassium 4.1 mmol/L (3.5-5.1); Sodium 138 mmol/L (136-145); Total Bilirubin 0.7 mg/dL (0.15-1.2); Total Protein 6.1 g/dL (6.6-8.7); Uric Acid 9.2 mg/dL (3.4-7.0)
[2021-05-15 10:35] LABS: Slide Review Slide Review Perform
[2021-05-15 10:37] LABS: Absolute Eosinophils 0.1 10^3/cmm (0.0-0.7); Absolute Segmented Neutrophil 7.3 10/cmm (1.6-7.1); Band Neutrophils Absolute 0.6 10^3/cmm (0.0-1.2); Eosinophils 1 %; Lymphocytes 11 %; Monocytes Absolute 0.1 10^3/cmm (0.1-0.6); Segmented Neutrophils 66 %; Total Cells Counted 100 (0-100)
[2021-05-15 10:38] LABS: Absolute Neutrophil 7.9 10^3/cmm (1.4-6.5); Blastocytes 9 % (0-0); Platelet Estimate Normal (Normal)
== END 2021-05-15 07:06 | disposition home or self-care (01) ==
LOC: ONCMED 07:09
PROVIDERS: PCP Family Medicine; Visit Provider Internal Medicine Medical Oncology
DX: C91.10 Chronic lymphocytic leukemia of B-cell type not having achieved remission (principal); L27.0 Generalized skin eruption due to drugs and medicaments taken internally; D64.9 Anemia, unspecified; Z79.899 Other long term (current) drug therapy
CPT/HCPCS: 80053; 83615; 84550; 85007; 85025; 96361; 96374; J2405; J7030

== ENCOUNTER → 2021-05-25 10:32 | Outpatient (BNVA) | payer MEDICARE, OTHER, SELFPAY | PROVIDERS: PCP Family Medicine; Visit Provider Internal Medicine | DX: R06.02 Shortness of breath (principal); R60.9 Edema, unspecified; E78.5 Hyperlipidemia, unspecified; I25.10 Atherosclerotic heart disease of native coronary artery without angina pectoris | CPT/HCPCS: 80048; 83880 ==

== ENCOUNTER 2021-06-18 06:25 | Outpatient (RCR) | payer MEDICARE, OTHER, SELFPAY ==
[2021-05-28 13:51] LABS: Hemoglobin 11.3 g/dL (11.7-16.6); Mean Corpuscular HGB Conc 32.3 g/dL (30.0-36.0); Mean Corpuscular Hemoglobin 28.3 pg (28.0-34.0); Mean Corpuscular Volume 87.5 fl (80-94); Mean Platelet Volume 10.1 fL (7.4-10.4); Platelet Count 86 10^3/cmm (130-400); Red Cell Distribution Width 15.2 % (12.1-15.1)
[2021-05-28 13:59] LABS: Alanine Aminotransferase 10 U/L (0-41); Albumin Level 3.7 g/dL (3.5-5.2); Alkaline Phosphatase 90 IU/L (40-130); Anion Gap 18.6 (5-19); Aspartate Amino Transferase 13 U/L (0-40); Blood Urea Nitrogen 44 mg/dL (8-23); Calcium 8.5 mg/dL (8.5-10.5); Carbon Dioxide 21 mmol/L (22-29); Chloride 99 mmol/L (98-107); Globulin 2.7 g/dL (1.3-4.6); Glucose 346 mg/dL (65-115); Osmolality Calculated 303 mOsm/kg (285-295); Potassium 4.6 mmol/L (3.5-5.1); Sodium 134 mmol/L (136-145); Total Bilirubin 0.4 mg/dL (0.15-1.2); Total Protein 6.4 g/dL (6.6-8.7); Uric Acid 10.9 mg/dL (3.4-7.0)
[2021-05-28] MEDS: sodium chloride 0.9% 500 ML 999 ML IV (14:39)
[2021-05-28 15:45] LABS: Slide Review Slide Review Perform; White Blood Count 45.5 10^3/uL (4.0-10.0)
[2021-05-28 15:46] LABS: Absolute Segmented Neutrophil 7.7 10/cmm (1.6-7.1); Eosinophils 0 %; Lymphocytes 45 %; Monocytes Absolute 1.4 10^3/cmm (0.1-0.6); Segmented Neutrophils 17 %; Total Cells Counted 100 (0-100)
[2021-05-28 15:47] LABS: Absolute Neutrophil 7.7 10^3/cmm (1.4-6.5); Anisocytosis Trace; Blastocytes 14 % (0-0); Platelet Estimate Decreased (Normal); Poikilocytosis Trace; Smudge Cells 2+
[2021-05-29] MEDS: sodium chloride 0.9% 500 ML 999 ML IV (14:08)
[2021-05-30 13:16] LABS: Basophils # 0.1 10^3/uL (0.0-0.1); Basophils % 0.1 %; Eosinophils # 0.2 10^3/uL (0.0-0.8); Eosinophils % 0.4 %; Hematocrit 29.1 % (42.0-52.0); Hemoglobin 9.4 g/dL (11.7-16.6); Lymphocytes % 20.5 %; Mean Corpuscular HGB Conc 32.3 g/dL (30.0-36.0); Mean Corpuscular Hemoglobin 28.2 pg (28.0-34.0); Mean Corpuscular Volume 87.4 fl (80-94); Mean Platelet Volume 9.8 fL (7.4-10.4); Monocytes # 39.6 10^3/uL (0.2-0.9); Neutrophils # 2.64 10^3/uL (1.8-7.7); Neutrophils % 4.9 %; Nucleated Red Blood Cells % 0 %; Platelet Count 88 10^3/cmm (130-400); Red Blood Count 3.33 10^6/uL (4.1-5.3); Red Cell Distribution Width 15.5 % (12.1-15.1)
[2021-05-30 13:37] LABS: Alanine Aminotransferase 9 U/L (0-41); Albumin Level 3.7 g/dL (3.5-5.2); Alkaline Phosphatase 106 IU/L (40-130); Anion Gap 20.1 (5-19); Aspartate Amino Transferase 11 U/L (0-40); Blood Urea Nitrogen 55 mg/dL (8-23); Calcium 8.7 mg/dL (8.5-10.5); Carbon Dioxide 19 mmol/L (22-29); Chloride 104 mmol/L (98-107); Globulin 2.4 g/dL (1.3-4.6); Glucose 142 mg/dL (65-115); Osmolality Calculated 304 mOsm/kg (285-295); Potassium 5.1 mmol/L (3.5-5.1); Sodium 138 mmol/L (136-145); Total Bilirubin 0.3 mg/dL (0.15-1.2); Total Protein 6.1 g/dL (6.6-8.7); Uric Acid 11.5 mg/dL (3.4-7.0)
[2021-05-30] MEDS: sodium chloride 0.9% 500 ML 999 ML IV (14:38)
[2021-05-30 14:50] LABS: White Blood Count 53.6 10^3/uL (4.0-10.0)
[2021-05-30 14:51] LABS: Slide Review Slide Review Perform
[2021-05-31] MEDS: sodium chloride 0.9% 500 ML 999 ML IV (13:08)
[2021-06-01 09:03] LABS: Hematocrit 29.1 % (42.0-52.0); Hemoglobin 9.3 g/dL (11.7-16.6); Mean Corpuscular Hemoglobin 28.1 pg (28.0-34.0); Mean Corpuscular Volume 87.9 fl (80-94); Mean Platelet Volume 9.5 fL (7.4-10.4); Platelet Count 93 10^3/cmm (130-400); Red Blood Count 3.31 10^6/uL (4.1-5.3); Red Cell Distribution Width 15.5 % (12.1-15.1)
[2021-06-01 09:23] LABS: Alanine Aminotransferase 9 U/L (0-41); Albumin Level 3.9 g/dL (3.5-5.2); Alkaline Phosphatase 103 IU/L (40-130); Anion Gap 20.2 (5-19); Aspartate Amino Transferase 14 U/L (0-40); Blood Urea Nitrogen 62 mg/dL (8-23); Calcium 8.3 mg/dL (8.5-10.5); Carbon Dioxide 19 mmol/L (22-29); Chloride 103 mmol/L (98-107); Glucose 170 mg/dL (65-115); Lactate Dehydrogenase 509 U/L (135-225); Osmolality Calculated 306 mOsm/kg (285-295); Potassium 5.2 mmol/L (3.5-5.1); Sodium 137 mmol/L (136-145); Total Bilirubin 0.4 mg/dL (0.15-1.2); Total Protein 5.9 g/dL (6.6-8.7); Uric Acid 0.6 mg/dL (3.4-7.0)
[2021-06-01 09:39] LABS: Absolute Segmented Neutrophil 2.7 10/cmm (1.6-7.1); Blastocytes 43 % (0-0); Eosinophils 0 %; Lymphocytes 50 %; Lymphocytes Absolute 26.9 10^3/cmm (1.2-3.4); Monocytes Absolute 1.1 10^3/cmm (0.1-0.6); Segmented Neutrophils 5 %; Slide Review Slide Review Perform; Total Cells Counted 100 (0-100); White Blood Count 53.7 10^3/uL (4.0-10.0)
[2021-06-01 09:40] LABS: Absolute Neutrophil 2.7 10^3/cmm (1.4-6.5); Platelet Estimate Decreased (Normal)
[2021-06-04 11:57] LABS: Hematocrit 29.2 % (42.0-52.0); Hemoglobin 9.3 g/dL (11.7-16.6); Mean Corpuscular HGB Conc 31.8 g/dL (30.0-36.0); Mean Corpuscular Hemoglobin 28.4 pg (28.0-34.0); Mean Corpuscular Volume 89.3 fl (80-94); Mean Platelet Volume 9.5 fL (7.4-10.4); Platelet Count 141 10^3/cmm (130-400); Red Blood Count 3.27 10^6/uL (4.1-5.3); Red Cell Distribution Width 15.9 % (12.1-15.1)
[2021-06-04 12:24] LABS: Alanine Aminotransferase 10 U/L (0-41); Albumin Level 3.8 g/dL (3.5-5.2); Alkaline Phosphatase 96 IU/L (40-130); Anion Gap 15.7 (5-19); Aspartate Amino Transferase 11 U/L (0-40); Blood Urea Nitrogen 55 mg/dL (8-23); Calcium 8.3 mg/dL (8.5-10.5); Carbon Dioxide 20 mmol/L (22-29); Chloride 107 mmol/L (98-107); Globulin 2.1 g/dL (1.3-4.6); Glucose 137 mg/dL (65-115); Osmolality Calculated 301 mOsm/kg (285-295); Potassium 5.7 mmol/L (3.5-5.1); Sodium 137 mmol/L (136-145); Total Bilirubin 0.4 mg/dL (0.15-1.2); Total Protein 5.9 g/dL (6.6-8.7); Uric Acid 4.8 mg/dL (3.4-7.0)
[2021-06-04 12:40] LABS: White Blood Count 40.6 10^3/uL (4.0-10.0)
[2021-06-04 12:45] LABS: Slide Review Slide Review Perform
[2021-06-11 11:47] LABS: Basophils % 0.1 %; Eosinophils # 0.2 10^3/uL (0.0-0.8); Eosinophils % 1.1 %; Hematocrit 31.1 % (42.0-52.0); Hemoglobin 9.9 g/dL (11.7-16.6); Lymphocytes % 73.9 %; Mean Corpuscular HGB Conc 31.8 g/dL (30.0-36.0); Mean Corpuscular Hemoglobin 28.4 pg (28.0-34.0); Mean Corpuscular Volume 89.4 fl (80-94); Mean Platelet Volume 9.2 fL (7.4-10.4); Monocytes # 1.3 10^3/uL (0.2-0.9); Monocytes % 8.8 %; Neutrophils # 2.39 10^3/uL (1.8-7.7); Nucleated Red Blood Cells % 0 %; Platelet Count 142 10^3/cmm (130-400); Red Blood Count 3.48 10^6/uL (4.1-5.3); Red Cell Distribution Width 16.2 % (12.1-15.1); White Blood Count 14.9 10^3/uL (4.0-10.0)
[2021-06-11 12:04] LABS: Alanine Aminotransferase 9 U/L (0-41); Albumin Level 4.2 g/dL (3.5-5.2); Alkaline Phosphatase 88 IU/L (40-130); Anion Gap 20.6 (5-19); Aspartate Amino Transferase 9 U/L (0-40); Blood Urea Nitrogen 50 mg/dL (8-23); Calcium 8.8 mg/dL (8.5-10.5); Carbon Dioxide 18 mmol/L (22-29); Chloride 103 mmol/L (98-107); Globulin 2.1 g/dL (1.3-4.6); Glucose 105 mg/dL (65-115); Osmolality Calculated 296 mOsm/kg (285-295); Potassium 5.6 mmol/L (3.5-5.1); Sodium 136 mmol/L (136-145); Total Bilirubin 0.5 mg/dL (0.15-1.2); Total Protein 6.3 g/dL (6.6-8.7); Uric Acid 10.1 mg/dL (3.4-7.0)
[2021-06-11 12:27] LABS: Slide Review Slide Review Perform
[2021-06-18 11:54] LABS: Eosinophils # 0.1 10^3/uL (0.0-0.8); Eosinophils % 0.9 %; Hematocrit 30.2 % (42.0-52.0); Hemoglobin 9.7 g/dL (11.7-16.6); Lymphocytes # 3.4 10^3/uL (0.8-4.8); Lymphocytes % 62.4 %; Mean Corpuscular HGB Conc 32.1 g/dL (30.0-36.0); Mean Corpuscular Hemoglobin 28.4 pg (28.0-34.0); Mean Corpuscular Volume 88.6 fl (80-94); Mean Platelet Volume 9.7 fL (7.4-10.4); Monocytes # 0.2 10^3/uL (0.2-0.9); Monocytes % 3.5 %; Nucleated Red Blood Cells % 0 %; Platelet Count 91 10^3/cmm (130-400); Red Blood Count 3.41 10^6/uL (4.1-5.3); Red Cell Distribution Width 15.9 % (12.1-15.1); White Blood Count 5.5 10^3/uL (4.0-10.0)
[2021-06-18 12:07] LABS: Alanine Aminotransferase 8 U/L (0-41); Albumin Level 4.2 g/dL (3.5-5.2); Alkaline Phosphatase 76 IU/L (40-130); Anion Gap 15.6 (5-19); Aspartate Amino Transferase 10 U/L (0-40); Blood Urea Nitrogen 49 mg/dL (8-23); Calcium 8.7 mg/dL (8.5-10.5); Carbon Dioxide 21 mmol/L (22-29); Chloride 104 mmol/L (98-107); Glucose 174 mg/dL (65-115); Osmolality Calculated 297 mOsm/kg (285-295); Potassium 5.6 mmol/L (3.5-5.1); Sodium 135 mmol/L (136-145); Total Bilirubin 0.7 mg/dL (0.15-1.2); Total Protein 6.2 g/dL (6.6-8.7)
== END 2021-06-22 23:59 | disposition home or self-care (01) ==
LOC: ONCMED 06:25
PROVIDERS: Internal Medicine Hematology & Oncology; Internal Medicine Medical Oncology; PCP Family Medicine; Visit Provider Nurse Practitioner Family
DX: C91.10 Chronic lymphocytic leukemia of B-cell type not having achieved remission (principal); I10 Essential (primary) hypertension; E78.5 Hyperlipidemia, unspecified; E11.22 Type 2 diabetes mellitus with diabetic chronic kidney disease; N18.9 Chronic kidney disease, unspecified; E11.59 Type 2 diabetes mellitus with other circulatory complications; I25.10 Atherosclerotic heart disease of native coronary artery without angina pectoris; D64.9 Anemia, unspecified; L27.0 Generalized skin eruption due to drugs and medicaments taken internally; T45.1X5A Adverse effect of antineoplastic and immunosuppressive drugs, initial encounter; E79.0 Hyperuricemia without signs of inflammatory arthritis and tophaceous disease; D69.6 Thrombocytopenia, unspecified; Z86.79 Personal history of other diseases of the circulatory system; Z95.0 Presence of cardiac pacemaker; Z79.899 Other long term (current) drug therapy
CPT/HCPCS: 36415; 80053; 83615; 84100; 84550; 85007; 85025; 96360; 96361; 96365; 99214; 99215; J2783; J7040

== ENCOUNTER 2021-07-23 06:39 | Outpatient (RCR) | payer MEDICARE, OTHER, SELFPAY ==
[2021-06-25 12:30] LABS: Basophils % 0.1 %; Eosinophils # 0.1 10^3/uL (0.0-0.8); Eosinophils % 0.8 %; Hematocrit 32.2 % (42.0-52.0); Hemoglobin 10.3 g/dL (11.7-16.6); Lymphocytes # 4.7 10^3/uL (0.8-4.8); Lymphocytes % 65.6 %; Mean Corpuscular Hemoglobin 28.8 pg (28.0-34.0); Mean Corpuscular Volume 89.9 fl (80-94); Mean Platelet Volume 9.5 fL (7.4-10.4); Monocytes # 0.3 10^3/uL (0.2-0.9); Monocytes % 4.1 %; Neutrophils # 2.07 10^3/uL (1.8-7.7); Neutrophils % 29.1 %; Nucleated Red Blood Cells % 0 %; Platelet Count 78 10^3/cmm (130-400); Red Blood Count 3.58 10^6/uL (4.1-5.3); Red Cell Distribution Width 15.8 % (12.1-15.1); White Blood Count 7.1 10^3/uL (4.0-10.0)
[2021-06-25 12:44] LABS: Alanine Aminotransferase 8 U/L (0-41); Albumin Level 4.3 g/dL (3.5-5.2); Alkaline Phosphatase 62 IU/L (40-130); Anion Gap 15.8 (5-19); Aspartate Amino Transferase 9 U/L (0-40); Blood Urea Nitrogen 45 mg/dL (8-23); Calcium 8.7 mg/dL (8.5-10.5); Carbon Dioxide 23 mmol/L (22-29); Chloride 104 mmol/L (98-107); Globulin 2.1 g/dL (1.3-4.6); Glucose 151 mg/dL (65-115); Osmolality Calculated 298 mOsm/kg (285-295); Potassium 5.8 mmol/L (3.5-5.1); Sodium 137 mmol/L (136-145); Total Bilirubin 0.7 mg/dL (0.15-1.2); Total Protein 6.4 g/dL (6.6-8.7)
--- NOTE | 2021-06-29 16:40 | ONC FU_ITS ---
Dr. Mann Patient Follow-Up Note Patient: Valente Renae Unit #: [id number]: 1945 Dicatated By: Gagandeep Mann M.D.Date of Visit:Jun 25, 2021 Onc Med Follow-up/Prog Note Chief Complaint: Chronic lymphocytic leukemia. History of Present Illness: This is a 76 year-old man with chronic lymphocytic leukemia, Kwok stage III. I had seen him initially in January of 2010 with a mild anemia and thrombocytopenia. At that time, he had been having episodes of low-grade fever with chills and generalized aching. Bone marrow aspiration/biopsy in February of 2010 was mildly hypercellular. It also showed evidence of a monoclonal B-cell lymphoproliferative process consistent with chronic lymphocytic leukemia. It comprised approximately 50% of the marrow cellularity. At that time the leukemia did not appear to be symptomatic, and he was initially just managed with observation. On a followup visit in November 2013 he had reported having 2 more febrile episodes. At that time he was noted to be mildly anemic with hemoglobin 10.7 g and his platelet count was normal at 144,000. His white blood cell count was elevated at 37,000, but that actually was down compared to the study the previous March. His LDH level was significantly elevated at 404/241 units per liter. Bone marrow aspiration/biopsy on 12/22/2013 showed 90 to 100% cellularity with the differential showing 72% lymphocytes. The chromosome analysis showed trisomy [address] scans showed interval splenomegaly with hamzah hepatis lymphadenopathy, the largest measuring 1.8 and 1.9 cm. Also noted was a 9 mm noncalcified pulmonary nodule in the left upper lobe. I had talked to him about the possibility of starting treatment, which he indicated he wanted to put off as long as possible. Followup laboratory studies in December 2013 showed some increase in his lymphocyte count. His hemoglobin was stable and his platelet count was just borderline low. His LDH level had returned to normal, and I opted to continue observation. During subsequent follow-up he continued to have occasional episodes of fever/chills, sometimes associated with nausea/vomiting and diarrhea. He was hospitalized again in January 2015. A subsequent HIDA scan showed no evidence of biliary obstruction, but the gallbladder ejection fraction was low at 19%. More recently he had been having pain in the right flank and right side of the back. He was noted to have a large cyst in the right kidney, and he underwent percutaneous drainage of the cyst on 07/24/2015. That procedure precipitated another spell . I had seen him for a follow-up visit on 08/09/2015. As there was no other obvious explanation for his symptoms, we opted to initiate treatment for the chronic lymphocytic leukemia. He returned on 08/22/2015 to begin cycle one of bendamustine/Rituxan. He did not complete treatment that day because of a mild infusion reaction with the Rituxan. However, with premedication, he was then able to complete his first cycle of treatment on 08/23 and 08/25/2015 with no acute toxicity. However, he subsequently presented with a generalized erythematous, itchy skin eruption. It was undoubtedly a hypersensitivity reaction, most likely to either the Rituxan or to the bendamustine. Allopurinol also was a possibility, though. He was given a short course of systemic steroid followed by topical steroid therapy. He returned 2 days later with swelling in the left arm. Venous Doppler showed features of thrombosis of the left cephalic vein from the anterior cubital fossa to the biceps. Other veins were noted to be patent. As such, I felt there was no definite indication for anticoagulation. On a followup visit in October 2015, the swelling and the skin eruption had resolved. He was feeling much better, and his hemoglobin had increased significantly, to 12.7 g. I did not attempt any further treatment. He was then continued on observation/expectant management. As of his follow-up visit on 08/22/2016 his white blood cell count was just mildly elevated at 17,000 with hemoglobin stable at 13.0 g and platelet count 135,000. He was seen again for a follow-up visit on 12/17/2016. His white blood cell count had increased to 42,000, his hemoglobin was stable at 12.8 g and his platelet count was normal at 148,000. He reported that a week earlier he did experience another episode of nausea/vomiting and chills. Fever was suspected but not documented. At the time of that visit his symptoms had improved significantly, and I opted to just continue with observation. As of his followup visit on 04/23/2017 he had experienced 2 further episodes with fever and nausea/vomiting. Both lasted only a few days and resolved without specific treatment. He had otherwise been feeling good. His white count at that point it increased to 58,000. Hemoglobin/hematocrit levels were stable. The platelet count was mildly decreased at 115,000. He continued observation/expectant management. He was seen for a follow-up visit again on 11/03/2017. At that point his white blood cell count had increased to 76,800 with his hemoglobin mildly decreased to 10.8 g and platelet count mildly decreased at 101,000. He appeared to be getting more overtly symptomatic, and at that point I did recommend that he begin second line treatment with ibrutinib. In preparation for starting the ibrutinib, he began prophylaxis with allopurinol 300 mg daily. He broke out with an erythematous skin eruption after the first dosage, and it was put on hold. He was then given a prescription for Uloric, but that he also stopped after the first dosage because of concerns of side effects. Ultimately, I did opt to treat him prophylactically with rasburicase, as I felt that he would be at very high risk for tumor lysis. He was given a single dose of rasburicase on 02/11/2018. He then started ibrutinib 420 mg daily on 02/12/2018. During subsequent follow-up, his white blood cell count had initially remained stable or slightly increased, but there was some improvement in the hemoglobin/hematocrit levels. As of 06/19/2018 the hemoglobin was 11.5 g with white blood cell count 82,000 and platelet count 133,000. He continued ibrutinib at 420 mg daily. He was seen for a scheduled visit on 09/14/2018. At that time he had multiple complaints including fatigue, excessive somnolence, and some confusion. His blood counts looked okay, but with those changes I did opt to have him stop the ibrutinib. As of his follow-up visit on 10/07/2018 he was feeling somewhat better, and he continued on observation/expectant management. On 11/03/2018 he had reported recurrence of fever/chills and nausea. He was given IV hydration for 2 days, and his symptoms improved. The preceding week he had required IV hydration for similar symptoms. At that point it did appear likely that his CLL had become symptomatic again. On 12/03/2018 he restarted treatment with ibrutinib at a reduced dosage of 280 mg daily. At day 15 he was given an infusion of rasburicase due to an increase in his uric acid level. During further follow-up, there was an increase in his lymphocyte count, as expected, but he was otherwise tolerating the treatment well. I had seen him for a follow-up visit on 01/27/2019. At that point he had developed severe muscle cramping, and I did opt to put his ibrutinib on hold. On 02/14/2019 he was admitted to the hospital after presenting to the emergency room with chest pain. He was hypertensive, and his creatinine at increased to 3.2 mg/dL. He had a slightly elevated troponin, significance of which was uncertain. A nuclear stress test showed some olvin-infarct ischemia, but mild. He had cardiology consultation with Dr. Orellana, and medical management was recommended. At discharge his creatinine had come back down to 2.8 mg/dL. Metoprolol was added to his medication regimen. He was seen for a follow-up visit on 02/24/2019. At that point he was acutely ill with another sick spell , including nausea/vomiting and diarrhea. He was given IV hydration and symptomatic management. His ibrutinib remained on hold. As of his follow-up visit on 03/03/2019 he was feeling better, and at that point he restarted ibrutinib with a further dose reduction to 140 mg daily. As of his follow-up visit in December 2019 there has been some further decline in his lymphocyte count. His other blood counts remained adequate, and he continued the ibrutinib at 140 mg daily. On 01/08/2021 he was admitted to the hospital with COVID-19 virus pneumonia. He had a complicated clinical course, requiring 2 subsequent hospitalizations. He was discharged home on 01/29/2021. With the initial hospitalization, I had recommended that they stop his ibrutinib. His other medical illnesses include hypertension, hyperlipidemia, type 2 diabetes, and coronary artery disease. He also has chronic kidney disease which has progressed to stage IV. In October 2014 he was admitted to the hospital with complete heart block, and he underwent placement of a permanent pacemaker. INTERIM HISTORY: As of his visit on 02/12/2021 he was showing some recovery, and I opted to continue expectant management for the CLL. However, by April 2021 there had been a significant increase in his lymphocyte count. His restaging CT scans showed some mild mediastinal and hilar adenopathy and his spleen was noted to be larger. He was getting more fatigued, and at that point he proceed to third-line treatment with venetoclax in combination with rituximab. Due to his underlying chronic kidney disease and hyperuricemia, he was given pretreatment IV hydration and he was given an IV infusion of rasburicase prophylactically. On 05/30/2021 he began venetoclax at 25 mg daily. He was then able to escalate to 50 mg daily and subsequently to 100 mg daily. As of 06/25/2021 his treatment was put on hold due to a drop in the platelet count to 78,000. His hemoglobin at that point had increased to 10.3 g and his white blood cell count had decreased to 7100 with absolute neutrophil count 2000. He is seen for a follow-up visit. He has been feeling better generally since starting the venetoclax. He had nausea/vomiting and fever during the first week of his treatment, but it lasted only 1 day. He has had no other obvious side effects. His activity is still limited. ECOG score is 2. Appetite has not been good since the Covid 19 virus infection. He has had some weight loss. He has otherwise not had fever and he has not had any night sweating. He has not had sore mouth or throat. He sometimes coughs up phlegm, but he does not complain of shortness of breath and he has not been having chest pain. He has no GI complaints other than his bowels have been loose since the Covid infection. Bladder function remains adequate, though he does have some difficulty holding his urine. He has some stiffness in his knees. He is not having any significant joint pain, though. He does not complain of headache or dizziness. He has some numbness in his hands. He has easy bruising, but that is chronic. Medications: Aspirin 1 (81 mg) Tablet Oral daily, Atorvastatin Calcium 1 Tablet (of 40 mg) Oral daily, Cholecalciferol 1 (50 mcg) Tablet Oral daily, Clopidogrel Bisulfate 1 Tablet (of 75 mg) Oral daily, Correctol Extra Gentle 1 Capsule (of 100 mg) Oral b.i.d. PRN, Finasteride 1 Tablet (of 5 mg) Oral daily, Flonase 1 (50 mcg/act) Suspension Nasal daily, Glucosamine Chond Cmp Advanced 1 Tablet Oral daily, Isosorbide Mononitrate ER 1 Tablet (of 90 mg) Tablet SR 24 HR Oral daily, Lantus 15 Units (of 100 Units/mL) Subcutaneous daily, Nitroglycerin Tablet, sublingual Sublingual PRN, Nitroglycerin Tablet, sublingual Sublingual PRN, Norvasc 1 (10 mg) Tablet Oral daily, NovoLOG (100 Units/mL) Subcutaneous Take as Directed, Sodium Bicarbonate 1 Tablet Oral q 8 hours, Tamsulosin HCl 1 Capsule Oral daily, Tylenol 2 (325 mg) Tablet Oral q 4 hours PRN Allergies: Allopurinol, Iodine, and Levaquin. Vital Signs: Performed on Jun 25, 2021 13:20 Height - 71.00 in Weight - 238.6 lbs (LOW) BSA - 2.27 sq.m BMI - 33.28 (HIGH) Temperature - 97.8 F (LOW) Pulse - 66 /min Respiration - 18 /min BP - 126/71 mm(hg) O2 Sat - 95 % (LOW) Pain - 0 Fatigue - 5 Physical Examination: Constitutional - He looks pretty good generally, Eyes - Sclerae nonicteric. Conjunctivae clear, ENMT - No lesions noted in the oral cavity, Hematologic/Lymphatic - No cervical, clavicular, or axillary adenopathy, Respiratory - Lungs sound clear with good air movement bilaterally, Cardiovascular - Heart rhythm is regular. There is a II/ systolic murmur. There is no gallop or rub noted, Abdomen - Mildy distended. Liver and spleen are not enlarged. There is no abdominal mass or ascites noted and there is no inguinal adenopathy, Extremities - No edema, Neurologic - No focal neurologic deficits noted. Lab/Imaging: Test performed on Jun 25, 2021 12:10 Sodium 137 mmol/L Potassium 5.8 mmol/L Chloride 104 mmol/L CO2 23 mmol/L Anion Gap 15.8 BUN 45 mg/dL Creatinine 2.8 mg/dL Cr Clearance (Est) 35.3800 mL/min Glucose 151 mg/dL Osmolality - Calculated 298 mOsm/kg Calcium 8.7 mg/dL Protein, Total 6.4 g/dL Albumin 4.3 g/dL Globulin 2.1 g/dL Bilirubin, Total 0.7 mg/dL ALT (SGPT) 8 U/L AST (SGOT) 9 U/L Alkaline Phosphatase 62 IU/L WBC 7.1 10 3/uL RBC 3.58 10 6/uL HGB 10.3 g/dL HCT 32.2 % MCV 89.9 fl MCH 28.8 pg MCHC 32.0 g/dL RDW 15.8 % Platelet Count 78 10 3/cmm MPV 9.5 fL Neutrophils 2.07 10 3/uL Lymphocytes 4.7 10 3/uL Monocytes 0.3 10 3/uL Eosinophils 0.1 10 3/uL Basophils 0.0 10 3/uL Neutrophil % 29.1 % Lymphocyte % 65.6 % Monocyte % 4.1 % Eosinophil % 0.8 % Basophils % 0.1 % NRBC % 0 % Problem List: 1. Chronic lymphocytic leukemia, initially diagnosed in February 2010. 2. Hypertension. 3. Hyperlipidemia. 4. Type II diabetes. 5. Chronic kidney disease. 6. Coronary artery disease. 7. History of complete heart block, requiring placement of permanent pacemaker. Problems Addressed with this Encounter and Plan: 1. Patient with chronic lymphocytic leukemia, initially diagnosed in February 2010. He was initially managed with observation, as he had multiple other medical illnesses and he desired conservative management. During his follow-up he continued to have wide fluctuations in his lymphocyte count, for which no rational explanation was found. He also had remained mildly anemic. His platelet counts had varied between low normal to mildly decreased. On several occasions his LDH level had been significantly elevated, but it was never consistently elevated. As of July 2015 he began treatment with bendamustine/Rituxan, as it appeared that his disease had become symptomatic. He had a mild infusion reaction with the initial attempt at the Rituxan infusion, and it was abandoned. He then returned on 08/24/2015 and with steroid premedication he was able to complete cycle 1 of bendamustine/Rituxan with no acute toxicity. He had subsequently presented with generalized erythroderma, consistent with hypersensitivity reaction to his treatment. The skin eruption subsequently resolved. It was never determined with certainty whether the reaction was to Rituxan, to bendamustine, or to allopurinol. However, he did have a very good response to the treatment. As of his follow-up visit on 11/03/2017 he has been showing a gradual increase in his lymphocyte count, and it appeared that his disease was getting symptomatic again. He ulltimately started treatment with ibrutinib 420 mg daily on 02/12/2018. He had a good clinical response, and he initially tolerated it well. However, as of his follow-up visit on 09/14/2018 his ibrutinib was put on hold due to multiple complaints including fatigue, excessive somnolence, and confusion. During subsequent follow-up his blood counts had remained adequately controlled, though he continued to have significant fatigue. On 12/03/2018 he restarted treatment with ibrutinib at a reduced dosage of 280 mg daily. At day 15 he was given an infusion of rasburicase due to an increase in his uric acid level. During further follow-up there was an increase in his lymphocyte count, as expected, but he had no further sick spells or other obvious CLL related symptoms. At his follow-up visit on 01/27/2019 he complained of severe muscle cramping, and his ibrutinib was put on hold. As of 03/03/2019 he restarted ibrutinib with a further dose reduction to 140 mg daily. During follow-up there was an increase in his lymphocyte count, as expected, but that subsequently stabilized, and during further follow-up the lymphocyte count began to gradually decline. He remained mildly anemic and he continued to have mild thrombocytopenia. As of his follow-up visit in December 2019 his overall clinical status appeared stable, and he continued the ibrutinib at 140 mg daily. On 01/08/2021 he was admitted to the hospital with COVID-19 virus pneumonia. He had a complicated clinical course, but he did show gradual recovery. However, by April 2021 he had become more fatigued. At that point there was a significant increase in his lymphocyte count and restaging CT scans showed an increase in his spleen size. With those findings, he was recommended to proceed with third line treatment with venetoclax in combination with rituximab. He began his venetoclax dose escalation on 05/30/2021. Due to underlying chronic kidney disease and hyperuricemia, he was given pretreatment IV hydration and an infusion of rasburicase prophylactically. He had some transient low-grade fever during the first week of treatment. He otherwise tolerated it well, and he was then able to increase the venetoclax dosage to 50 mg daily and subsequently to 100 mg daily. As of 06/25/2021 his treatment was put on hold due to a drop in his platelet count to 78,000. At this point he is feeling better generally, and he is showing evidence of response with decrease in his lymphocyte count and some increase in his hemoglobin/hematocrit levels. At least for now his treatment will remain on hold. His CBC will be rechecked weekly and if his platelet count is stable or increasing, I will try restarting the venetoclax at the 100 mg dosage. I will tentatively plan a follow-up visit in 4 weeks. Signed By: Gagandeep Mann M.D. <<Signature on File>>
[2021-07-02 11:27] LABS: Basophils % 0.4 %; Eosinophils # 0.1 10^3/uL (0.0-0.8); Eosinophils % 1.3 %; Hematocrit 33.7 % (42.0-52.0); Hemoglobin 10.8 g/dL (11.7-16.6); Lymphocytes # 5.1 10^3/uL (0.8-4.8); Lymphocytes % 62.2 %; Mean Corpuscular Hemoglobin 29.5 pg (28.0-34.0); Mean Corpuscular Volume 92.1 fl (80-94); Mean Platelet Volume 9.6 fL (7.4-10.4); Monocytes # 0.4 10^3/uL (0.2-0.9); Monocytes % 4.2 %; Neutrophils # 2.61 10^3/uL (1.8-7.7); Neutrophils % 31.5 %; Nucleated Red Blood Cells % 0 %; Platelet Count 107 10^3/cmm (130-400); Red Blood Count 3.66 10^6/uL (4.1-5.3); Red Cell Distribution Width 15.6 % (12.1-15.1); White Blood Count 8.3 10^3/uL (4.0-10.0)
[2021-07-09 11:34] LABS: Basophils % 0.2 %; Eosinophils # 0.2 10^3/uL (0.0-0.8); Eosinophils % 2.9 %; Hematocrit 31.8 % (42.0-52.0); Hemoglobin 10.1 g/dL (11.7-16.6); Lymphocytes # 2.7 10^3/uL (0.8-4.8); Lymphocytes % 53.2 %; Mean Corpuscular HGB Conc 31.8 g/dL (30.0-36.0); Mean Corpuscular Volume 91.4 fl (80-94); Mean Platelet Volume 9.9 fL (7.4-10.4); Monocytes # 0.2 10^3/uL (0.2-0.9); Monocytes % 3.7 %; Neutrophils # 2.04 10^3/uL (1.8-7.7); Neutrophils % 39.8 %; Nucleated Red Blood Cells % 0 %; Platelet Count 98 10^3/cmm (130-400); Red Blood Count 3.48 10^6/uL (4.1-5.3); Red Cell Distribution Width 15.4 % (12.1-15.1); White Blood Count 5.1 10^3/uL (4.0-10.0)
[2021-07-16 12:04] LABS: Add Urine Microscopic? NO; Charge for UA Resulting for Rev
[2021-07-16 12:18] LABS: Basophils % 0.2 %; Eosinophils # 0.1 10^3/uL (0.0-0.8); Eosinophils % 2.2 %; Hematocrit 33.3 % (42.0-52.0); Hemoglobin 10.8 g/dL (11.7-16.6); Lymphocytes # 2.5 10^3/uL (0.8-4.8); Lymphocytes % 50.6 %; Mean Corpuscular HGB Conc 32.4 g/dL (30.0-36.0); Mean Corpuscular Volume 89.5 fl (80-94); Mean Platelet Volume 9.4 fL (7.4-10.4); Monocytes # 0.2 10^3/uL (0.2-0.9); Monocytes % 4.5 %; Neutrophils # 2.07 10^3/uL (1.8-7.7); Neutrophils % 42.3 %; Nucleated Red Blood Cells % 0 %; Platelet Count 86 10^3/cmm (130-400); Red Blood Count 3.72 10^6/uL (4.1-5.3); Red Cell Distribution Width 14.8 % (12.1-15.1); White Blood Count 4.9 10^3/uL (4.0-10.0)
[2021-07-16 12:42] LABS: Albumin Level 4.3 g/dL (3.5-5.2); Anion Gap 21.1 (5-19); Blood Urea Nitrogen 50 mg/dL (8-23); Calcium 9.7 mg/dL (8.5-10.5); Carbon Dioxide 20 mmol/L (22-29); Chloride 102 mmol/L (98-107); Ferritin 63 ng/mL (30-400); Glucose 158 mg/dL (65-115); Iron 88 ug/dL (59-158); Osmolality Calculated 301 mOsm/kg (285-295); Percent Saturation 35.2 % (20-50); Phosphorus 3.5 mg/dL (2.5-4.5); Potassium 6.1 mmol/L (3.5-5.1); Sodium 137 mmol/L (136-145); Total Iron Binding Capacity 250 mcg/dl; Unsaturated Iron Binding 162 ug/dL (112-347); Uric Acid 8.8 mg/dL (3.4-7.0)
[2021-07-16 13:01] LABS: Bilirubin Urine Neg (Negative); Blood Urine Neg (Negative); Glucose Urine UA Norm (Normal); Ketones Urine Negative (Negative); Leukocyte Esterase Urine Negative (Negative); Nitrate Urine Negative (Negative); Protein Urine Neg (Negative); Urine Appearance Clear (CLEAR); Urine Color Yellow (Yellow); Urobilinogen Urine Norm (Negative); pH Urine 5 (5-7)
[2021-07-16 13:25] LABS: Urine Creatinine 62 mg/dL (39-259)
[2021-07-16 13:30] LABS: Urine Protein Random 23 mg/dL
[2021-07-23 09:23] LABS: Basophils % 0.3 %; Eosinophils # 0.1 10^3/uL (0.0-0.8); Eosinophils % 1.7 %; Hematocrit 34.8 % (42.0-52.0); Hemoglobin 11.3 g/dL (11.7-16.6); Lymphocytes # 3.1 10^3/uL (0.8-4.8); Lymphocytes % 51.3 %; Mean Corpuscular HGB Conc 32.5 g/dL (30.0-36.0); Mean Corpuscular Hemoglobin 29.2 pg (28.0-34.0); Mean Corpuscular Volume 89.9 fl (80-94); Mean Platelet Volume 9.5 fL (7.4-10.4); Monocytes # 0.4 10^3/uL (0.2-0.9); Neutrophils # 2.34 10^3/uL (1.8-7.7); Neutrophils % 39.4 %; Nucleated Red Blood Cells % 0 %; Platelet Count 102 10^3/cmm (130-400); Red Blood Count 3.87 10^6/uL (4.1-5.3); Red Cell Distribution Width 14.8 % (12.1-15.1)
[2021-07-23 09:53] LABS: Alanine Aminotransferase 8 U/L (0-41); Albumin Level 4.4 g/dL (3.5-5.2); Alkaline Phosphatase 80 IU/L (40-130); Anion Gap 14.6 (5-19); Aspartate Amino Transferase 9 U/L (0-40); Blood Urea Nitrogen 51 mg/dL (8-23); Calcium 9.1 mg/dL (8.5-10.5); Carbon Dioxide 25 mmol/L (22-29); Chloride 104 mmol/L (98-107); Globulin 2.2 g/dL (1.3-4.6); Glucose 184 mg/dL (65-115); Lactate Dehydrogenase 197 U/L (135-225); Osmolality Calculated 304 mOsm/kg (285-295); Potassium 5.6 mmol/L (3.5-5.1); Sodium 138 mmol/L (136-145); Total Bilirubin 0.4 mg/dL (0.15-1.2); Total Protein 6.6 g/dL (6.6-8.7); Uric Acid 8.7 mg/dL (3.4-7.0)
[2021-07-23 10:08] LABS: Magnesium 2.5 mg/dL (1.7-2.3)
--- NOTE | 2021-07-24 08:47 | ONC FU_ITS ---
Dr. Mann Patient Follow-Up Note Patient: Valente Renae Unit #: [id number]: 1945 Dicatated By: Gagandeep Mann M.D.Date of Visit:Jul 23, 2021 Onc Med Follow-up/Prog Note Chief Complaint: Chronic lymphocytic leukemia. History of Present Illness: This is a 76 year-old man with chronic lymphocytic leukemia, Kwok stage III. I had seen him initially in January of 2010 with a mild anemia and thrombocytopenia. At that time, he had been having episodes of low-grade fever with chills and generalized aching. Bone marrow aspiration/biopsy in February of 2010 was mildly hypercellular. It also showed evidence of a monoclonal B-cell lymphoproliferative process consistent with chronic lymphocytic leukemia. It comprised approximately 50% of the marrow cellularity. At that time the leukemia did not appear to be symptomatic, and he was initially just managed with observation. On a followup visit in November 2013 he had reported having 2 more febrile episodes. At that time he was noted to be mildly anemic with hemoglobin 10.7 g and his platelet count was normal at 144,000. His white blood cell count was elevated at 37,000, but that actually was down compared to the study the previous March. His LDH level was significantly elevated at 404/241 units per liter. Bone marrow aspiration/biopsy on 12/22/2013 showed 90 to 100% cellularity with the differential showing 72% lymphocytes. The chromosome analysis showed trisomy [address] scans showed interval splenomegaly with hamzah hepatis lymphadenopathy, the largest measuring 1.8 and 1.9 cm. Also noted was a 9 mm noncalcified pulmonary nodule in the left upper lobe. I had talked to him about the possibility of starting treatment, which he indicated he wanted to put off as long as possible. Followup laboratory studies in December 2013 showed some increase in his lymphocyte count. His hemoglobin was stable and his platelet count was just borderline low. His LDH level had returned to normal, and I opted to continue observation. During subsequent follow-up he continued to have occasional episodes of fever/chills, sometimes associated with nausea/vomiting and diarrhea. He was hospitalized again in January 2015. A subsequent HIDA scan showed no evidence of biliary obstruction, but the gallbladder ejection fraction was low at 19%. More recently he had been having pain in the right flank and right side of the back. He was noted to have a large cyst in the right kidney, and he underwent percutaneous drainage of the cyst on 07/24/2015. That procedure precipitated another spell . I had seen him for a follow-up visit on 08/09/2015. As there was no other obvious explanation for his symptoms, we opted to initiate treatment for the chronic lymphocytic leukemia. He returned on 08/22/2015 to begin cycle one of bendamustine/Rituxan. He did not complete treatment that day because of a mild infusion reaction with the Rituxan. However, with premedication, he was then able to complete his first cycle of treatment on 08/23 and 08/25/2015 with no acute toxicity. However, he subsequently presented with a generalized erythematous, itchy skin eruption. It was undoubtedly a hypersensitivity reaction, most likely to either the Rituxan or to the bendamustine. Allopurinol also was a possibility, though. He was given a short course of systemic steroid followed by topical steroid therapy. He returned 2 days later with swelling in the left arm. Venous Doppler showed features of thrombosis of the left cephalic vein from the anterior cubital fossa to the biceps. Other veins were noted to be patent. As such, I felt there was no definite indication for anticoagulation. On a followup visit in October 2015, the swelling and the skin eruption had resolved. He was feeling much better, and his hemoglobin had increased significantly, to 12.7 g. I did not attempt any further treatment. He was then continued on observation/expectant management. As of his follow-up visit on 08/22/2016 his white blood cell count was just mildly elevated at 17,000 with hemoglobin stable at 13.0 g and platelet count 135,000. He was seen again for a follow-up visit on 12/17/2016. His white blood cell count had increased to 42,000, his hemoglobin was stable at 12.8 g and his platelet count was normal at 148,000. He reported that a week earlier he did experience another episode of nausea/vomiting and chills. Fever was suspected but not documented. At the time of that visit his symptoms had improved significantly, and I opted to just continue with observation. As of his followup visit on 04/23/2017 he had experienced 2 further episodes with fever and nausea/vomiting. Both lasted only a few days and resolved without specific treatment. He had otherwise been feeling good. His white count at that point it increased to 58,000. Hemoglobin/hematocrit levels were stable. The platelet count was mildly decreased at 115,000. He continued observation/expectant management. He was seen for a follow-up visit again on 11/03/2017. At that point his white blood cell count had increased to 76,800 with his hemoglobin mildly decreased to 10.8 g and platelet count mildly decreased at 101,000. He appeared to be getting more overtly symptomatic, and at that point I did recommend that he begin second line treatment with ibrutinib. In preparation for starting the ibrutinib, he began prophylaxis with allopurinol 300 mg daily. He broke out with an erythematous skin eruption after the first dosage, and it was put on hold. He was then given a prescription for Uloric, but that he also stopped after the first dosage because of concerns of side effects. Ultimately, I did opt to treat him prophylactically with rasburicase, as I felt that he would be at very high risk for tumor lysis. He was given a single dose of rasburicase on 02/11/2018. He then started ibrutinib 420 mg daily on 02/12/2018. During subsequent follow-up, his white blood cell count had initially remained stable or slightly increased, but there was some improvement in the hemoglobin/hematocrit levels. As of 06/19/2018 the hemoglobin was 11.5 g with white blood cell count 82,000 and platelet count 133,000. He continued ibrutinib at 420 mg daily. He was seen for a scheduled visit on 09/14/2018. At that time he had multiple complaints including fatigue, excessive somnolence, and some confusion. His blood counts looked okay, but with those changes I did opt to have him stop the ibrutinib. As of his follow-up visit on 10/07/2018 he was feeling somewhat better, and he continued on observation/expectant management. On 11/03/2018 he had reported recurrence of fever/chills and nausea. He was given IV hydration for 2 days, and his symptoms improved. The preceding week he had required IV hydration for similar symptoms. At that point it did appear likely that his CLL had become symptomatic again. On 12/03/2018 he restarted treatment with ibrutinib at a reduced dosage of 280 mg daily. At day 15 he was given an infusion of rasburicase due to an increase in his uric acid level. During further follow-up, there was an increase in his lymphocyte count, as expected, but he was otherwise tolerating the treatment well. I had seen him for a follow-up visit on 01/27/2019. At that point he had developed severe muscle cramping, and I did opt to put his ibrutinib on hold. On 02/14/2019 he was admitted to the hospital after presenting to the emergency room with chest pain. He was hypertensive, and his creatinine at increased to 3.2 mg/dL. He had a slightly elevated troponin, significance of which was uncertain. A nuclear stress test showed some olvin-infarct ischemia, but mild. He had cardiology consultation with Dr. Orellana, and medical management was recommended. At discharge his creatinine had come back down to 2.8 mg/dL. Metoprolol was added to his medication regimen. He was seen for a follow-up visit on 02/24/2019. At that point he was acutely ill with another sick spell , including nausea/vomiting and diarrhea. He was given IV hydration and symptomatic management. His ibrutinib remained on hold. As of his follow-up visit on 03/03/2019 he was feeling better, and at that point he restarted ibrutinib with a further dose reduction to 140 mg daily. As of his follow-up visit in December 2019 there has been some further decline in his lymphocyte count. His other blood counts remained adequate, and he continued the ibrutinib at 140 mg daily. On 01/08/2021 he was admitted to the hospital with COVID-19 virus pneumonia. He had a complicated clinical course, requiring 2 subsequent hospitalizations. He was discharged home on 01/29/2021. With the initial hospitalization, I had recommended that they stop his ibrutinib. His other medical illnesses include hypertension, hyperlipidemia, type 2 diabetes, and coronary artery disease. He also has chronic kidney disease which has progressed to stage IV. In October 2014 he was admitted to the hospital with complete heart block, and he underwent placement of a permanent pacemaker. INTERIM HISTORY: As of his visit on 02/12/2021 he was showing some recovery, and I opted to continue expectant management for the CLL. However, by April 2021 there had been a significant increase in his lymphocyte count. His restaging CT scans showed some mild mediastinal and hilar adenopathy and his spleen was noted to be larger. He was getting more fatigued, and at that point he proceed to third-line treatment with venetoclax in combination with rituximab. Due to his underlying chronic kidney disease and hyperuricemia, he was given pretreatment IV hydration and he was given an IV infusion of rasburicase prophylactically. On 05/30/2021 he began venetoclax at 25 mg daily. He was then able to escalate to 50 mg daily and subsequently to 100 mg daily. As of 06/25/2021 his treatment was put on hold due to a drop in the platelet count to 78,000. His hemoglobin at that point had increased to 10.3 g and his white blood cell count had decreased to 7100 with absolute neutrophil count 2000. On 07/02/2021 he restarted the venetoclax at 100 mg daily with his platelet count back up to 107,000. He stopped it 2 weeks later when he developed pretty severe pain and numbness in both shoulders and arms. After 3 days off treatment, he try going back on it, but with the recurrence of the symptoms. He is seen now for a follow-up visit. He says he has not had much energy, but over the weekend he had also changed his blood pressure medication at the direction of Dr. Morris, apparently because his potassium was high. He has not had much activity. His ECOG score is 2. Appetite is also not very good. He has not had fever or night sweats. He complains of having dry mouth. He has not had sore throat or difficulty swallowing. He has a little bit of cough. He does not complain of shortness of breath or chest pain. He has no GI complaints other than some mild constipation, which he is able to manage with prune juice. His bladder function is the same. He has some joint pain, mainly in the knees, and he has developing Dupuytren's contractures in both hands. Medications: Aspirin 1 (81 mg) Tablet Oral daily, Atorvastatin Calcium 1 Tablet (of 40 mg) Oral daily, Cholecalciferol 1 (50 mcg) Tablet Oral daily, Clopidogrel Bisulfate 1 Tablet (of 75 mg) Oral daily, Correctol Extra Gentle 1 Capsule (of 100 mg) Oral b.i.d. PRN, Finasteride 1 Tablet (of 5 mg) Oral daily, Flonase 1 (50 mcg/act) Suspension Nasal daily, Glucosamine Chond Cmp Advanced 1 Tablet Oral daily, Isosorbide Mononitrate ER 1 Tablet (of 60 mg) Tablet SR 24 HR Oral daily, Lantus 15 Units (of 100 Units/mL) Subcutaneous daily, NIFEdipine ER 1 Tablet (of 30 mg) Tablet SR 24 HR Oral daily, Nitroglycerin Tablet, sublingual Sublingual PRN, Nitroglycerin Tablet, sublingual Sublingual PRN, NovoLOG (100 Units/mL) Subcutaneous Take as Directed, Sodium Bicarbonate 1 Tablet Oral q 8 hours, Tamsulosin HCl 1 Capsule Oral daily, Tylenol 2 (325 mg) Tablet Oral q 4 hours PRN Allergies: Allopurinol, Iodine, and Levaquin. Vital Signs: Performed on Jul 23, 2021 10:18 Height - 71.00 in Weight - 241.6 lbs (HIGH) BSA - 2.29 sq.m BMI - 33.70 (HIGH) Temperature - 97.4 F (LOW) Pulse - 106 /min (HIGH) Respiration - 16 /min BP - 171/81 mm(hg) (HIGH) O2 Sat - 98 % Pain - 0 Fatigue - 7 Physical Examination: Constitutional - He looks pretty good generally, Eyes - Sclerae nonicteric. Conjunctivae clear, ENMT - No lesions noted in the oral cavity, Hematologic/Lymphatic - No cervical, clavicular, or axillary adenopathy, Respiratory - Lungs sound clear with good air movement bilaterally, Cardiovascular - Heart rhythm is regular. There is a II/ systolic murmur. There is no gallop or rub noted, Abdomen - Mildy distended. Liver and spleen are not enlarged. There is no abdominal mass or ascites noted and there is no inguinal adenopathy, Extremities - No edema, Neurologic - No focal neurologic deficits noted. Lab/Imaging: CBC shows hemoglobin 11.3 g, white blood cell count 6000, and platelet count 102,000. The absolute neutrophil count is 2300. Comprehensive metabolic profile shows elevated BUN and creatinine at 51 and 3.0 mg/dL. Potassium is high at 5.6 mmol/L. The bilirubin and liver enzymes are normal. LDH is normal at 197 U/L. The uric acid level is mildly elevated but stable at 8.7 mg/dL. Problem List: 1. Chronic lymphocytic leukemia, initially diagnosed in February 2010. 2. Hypertension. 3. Hyperlipidemia. 4. Type II diabetes. 5. Chronic kidney disease. 6. Coronary artery disease. 7. History of complete heart block, requiring placement of permanent pacemaker. Problems Addressed with this Encounter and Plan: 1. Patient with chronic lymphocytic leukemia, initially diagnosed in February 2010. He was initially managed with observation, as he had multiple other medical illnesses and he desired conservative management. During his follow-up he continued to have wide fluctuations in his lymphocyte count, for which no rational explanation was found. He also had remained mildly anemic. His platelet counts had varied between low normal to mildly decreased. On several occasions his LDH level had been significantly elevated, but it was never consistently elevated. As of July 2015 he began treatment with bendamustine/Rituxan, as it appeared that his disease had become symptomatic. He had a mild infusion reaction with the initial attempt at the Rituxan infusion, and it was abandoned. He then returned on 08/24/2015 and with steroid premedication he was able to complete cycle 1 of bendamustine/Rituxan with no acute toxicity. He had subsequently presented with generalized erythroderma, consistent with hypersensitivity reaction to his treatment. The skin eruption subsequently resolved. It was never determined with certainty whether the reaction was to Rituxan, to bendamustine, or to allopurinol. However, he did have a very good response to the treatment. As of his follow-up visit on 11/03/2017 he has been showing a gradual increase in his lymphocyte count, and it appeared that his disease was getting symptomatic again. He ulltimately started treatment with ibrutinib 420 mg daily on 02/12/2018. He had a good clinical response, and he initially tolerated it well. However, as of his follow-up visit on 09/14/2018 his ibrutinib was put on hold due to multiple complaints including fatigue, excessive somnolence, and confusion. During subsequent follow-up his blood counts had remained adequately controlled, though he continued to have significant fatigue. On 12/03/2018 he restarted treatment with ibrutinib at a reduced dosage of 280 mg daily. At day 15 he was given an infusion of rasburicase due to an increase in his uric acid level. During further follow-up there was an increase in his lymphocyte count, as expected, but he had no further sick spells or other obvious CLL related symptoms. At his follow-up visit on 01/27/2019 he complained of severe muscle cramping, and his ibrutinib was put on hold. As of 03/03/2019 he restarted ibrutinib with a further dose reduction to 140 mg daily. During follow-up there was an increase in his lymphocyte count, as expected, but that subsequently stabilized, and during further follow-up the lymphocyte count began to gradually decline. He remained mildly anemic and he continued to have mild thrombocytopenia. As of his follow-up visit in December 2019 his overall clinical status appeared stable, and he continued the ibrutinib at 140 mg daily. On 01/08/2021 he was admitted to the hospital with COVID-19 virus pneumonia. He had a complicated clinical course, but he did show gradual recovery. However, by April 2021 he had become more fatigued. At that point there was a significant increase in his lymphocyte count and restaging CT scans showed an increase in his spleen size. With those findings, he was recommended to proceed with third line treatment with venetoclax in combination with rituximab. He began his venetoclax dose escalation on 05/30/2021. Due to underlying chronic kidney disease and hyperuricemia, he was given pretreatment IV hydration and an infusion of rasburicase prophylactically. He had some transient low-grade fever during the first week of treatment. He otherwise tolerated it well, and he was then able to increase the venetoclax dosage to 50 mg daily and subsequently to 100 mg daily. As of 06/25/2021 his treatment was put on hold due to a drop in his platelet count to 78,000. On 07/02/2021 he restarted venetoclax 100 mg daily with his platelet count back up to 107,000. Since then his blood counts have remained adequate, but he has been off the medication since 07/16/2021 due to development of pretty severe pain and numbness in both shoulders/arms, which I assume is treatment related. Based on his current CBC he appears to have a very good response to the venetoclax, but he is not tolerating it at the 100 mg dosage. At least for now, I will continue to monitor him off treatment. If his blood counts and clinical status remained stable, I may then try restarting the venetoclax back at 25 mg daily. I will tentatively plan a follow-up visit in 1 month. Signed By: Gagandeep Mann M.D. <<Signature on File>>
[2021-07-26 15:47] LABS: PTH Related Peptide (Protein) 16 pg/mL (11-20)
== END 2021-07-23 23:59 | disposition home or self-care (01) ==
LOC: ONCMED 06:39
PROVIDERS: Internal Medicine; PCP Family Medicine; Visit Provider Internal Medicine Medical Oncology
DX: C91.10 Chronic lymphocytic leukemia of B-cell type not having achieved remission (principal); I12.9 Hypertensive chronic kidney disease with stage 1 through stage 4 chronic kidney disease, or unspecified chronic kidney disease; E78.5 Hyperlipidemia, unspecified; E11.22 Type 2 diabetes mellitus with diabetic chronic kidney disease; N18.9 Chronic kidney disease, unspecified; E11.59 Type 2 diabetes mellitus with other circulatory complications; I25.10 Atherosclerotic heart disease of native coronary artery without angina pectoris; Z95.5 Presence of coronary angioplasty implant and graft; Z86.79 Personal history of other diseases of the circulatory system; Z79.899 Other long term (current) drug therapy
CPT/HCPCS: 36415; 80048; 80053; 81003; 82040; 82542; 82570; 82728; 83540; 83550; 83615; 83735; 84100; 84156; 84550; 85025; 99214; 99215

== ENCOUNTER 2021-08-14 06:57 | Outpatient (RCR) | payer MEDICARE, OTHER, SELFPAY ==
[2021-07-31 14:05] LABS: Basophils % 0.3 %; Eosinophils # 0.2 10^3/uL (0.0-0.8); Eosinophils % 2.9 %; Hematocrit 33.7 % (42.0-52.0); Hemoglobin 10.9 g/dL (11.7-16.6); Lymphocytes # 2.9 10^3/uL (0.8-4.8); Lymphocytes % 46.6 %; Mean Corpuscular HGB Conc 32.3 g/dL (30.0-36.0); Mean Corpuscular Hemoglobin 29.1 pg (28.0-34.0); Mean Corpuscular Volume 89.9 fl (80-94); Mean Platelet Volume 9.6 fL (7.4-10.4); Monocytes # 0.3 10^3/uL (0.2-0.9); Monocytes % 5.2 %; Neutrophils % 44.5 %; Nucleated Red Blood Cells % 0 %; Platelet Count 96 10^3/cmm (130-400); Red Blood Count 3.75 10^6/uL (4.1-5.3); Red Cell Distribution Width 14.7 % (12.1-15.1); White Blood Count 6.3 10^3/uL (4.0-10.0)
[2021-07-31 14:44] LABS: Alanine Aminotransferase 10 U/L (0-41); Albumin Level 4.4 g/dL (3.5-5.2); Alkaline Phosphatase 61 IU/L (40-130); Anion Gap 17.9 (5-19); Aspartate Amino Transferase 12 U/L (0-40); Blood Urea Nitrogen 50 mg/dL (8-23); Calcium 9.7 mg/dL (8.5-10.5); Carbon Dioxide 19 mmol/L (22-29); Chloride 104 mmol/L (98-107); Glucose 228 mg/dL (65-115); Magnesium 2.1 mg/dL (1.7-2.3); Osmolality Calculated 303 mOsm/kg (285-295); Potassium 4.9 mmol/L (3.5-5.1); Sodium 136 mmol/L (136-145); Total Bilirubin 0.7 mg/dL (0.15-1.2); Total Protein 6.4 g/dL (6.6-8.7)
[2021-08-07 14:53] LABS: Basophils % 0.4 %; Eosinophils # 0.3 10^3/uL (0.0-0.8); Eosinophils % 4.4 %; Hemoglobin 11.5 g/dL (11.7-16.6); Lymphocytes # 3.7 10^3/uL (0.8-4.8); Lymphocytes % 51.3 %; Mean Corpuscular HGB Conc 32.9 g/dL (30.0-36.0); Mean Corpuscular Hemoglobin 29.6 pg (28.0-34.0); Mean Platelet Volume 9.4 fL (7.4-10.4); Monocytes # 0.4 10^3/uL (0.2-0.9); Monocytes % 5.2 %; Neutrophils # 2.73 10^3/uL (1.8-7.7); Neutrophils % 38.4 %; Nucleated Red Blood Cells % 0 %; Platelet Count 105 10^3/cmm (130-400); Red Blood Count 3.89 10^6/uL (4.1-5.3); Red Cell Distribution Width 14.5 % (12.1-15.1); White Blood Count 7.1 10^3/uL (4.0-10.0)
[2021-08-07 15:17] LABS: Alanine Aminotransferase 10 U/L (0-41); Albumin Level 4.7 g/dL (3.5-5.2); Alkaline Phosphatase 70 IU/L (40-130); Anion Gap 17.9 (5-19); Aspartate Amino Transferase 13 U/L (0-40); Blood Urea Nitrogen 50 mg/dL (8-23); Calcium 9.8 mg/dL (8.5-10.5); Carbon Dioxide 22 mmol/L (22-29); Chloride 102 mmol/L (98-107); Globulin 2.3 g/dL (1.3-4.6); Glucose 210 mg/dL (65-115); Osmolality Calculated 304 mOsm/kg (285-295); Potassium 4.9 mmol/L (3.5-5.1); Sodium 137 mmol/L (136-145); Total Bilirubin 0.6 mg/dL (0.15-1.2)
[2021-08-14 15:20] LABS: Basophils % 0.4 %; Eosinophils # 0.4 10^3/uL (0.0-0.8); Eosinophils % 4.7 %; Hematocrit 38.2 % (42.0-52.0); Hemoglobin 12.4 g/dL (11.7-16.6); Lymphocytes # 4.1 10^3/uL (0.8-4.8); Lymphocytes % 49.5 %; Mean Corpuscular HGB Conc 32.5 g/dL (30.0-36.0); Mean Corpuscular Hemoglobin 29.2 pg (28.0-34.0); Mean Corpuscular Volume 90.1 fl (80-94); Mean Platelet Volume 9.3 fL (7.4-10.4); Monocytes # 0.4 10^3/uL (0.2-0.9); Monocytes % 4.7 %; Neutrophils # 3.33 10^3/uL (1.8-7.7); Neutrophils % 40.2 %; Nucleated Red Blood Cells % 0 %; Platelet Count 110 10^3/cmm (130-400); Red Blood Count 4.24 10^6/uL (4.1-5.3); Red Cell Distribution Width 14.2 % (12.1-15.1); White Blood Count 8.3 10^3/uL (4.0-10.0)
== END 2021-08-20 23:59 | disposition home or self-care (01) ==
LOC: ONCMED 06:57
PROVIDERS: PCP Family Medicine; Visit Provider Internal Medicine Medical Oncology
DX: C91.10 Chronic lymphocytic leukemia of B-cell type not having achieved remission (principal); L27.0 Generalized skin eruption due to drugs and medicaments taken internally; T45.1X5A Adverse effect of antineoplastic and immunosuppressive drugs, initial encounter; D64.9 Anemia, unspecified; Z79.899 Other long term (current) drug therapy
CPT/HCPCS: 36415; 80053; 83735; 85025

== ENCOUNTER 2021-09-20 06:39 | Outpatient (RCR) | payer MEDICARE, OTHER, SELFPAY ==
[2021-08-21 14:56] LABS: Hematocrit 36.8 % (42.0-52.0); Mean Corpuscular HGB Conc 32.6 g/dL (30.0-36.0); Mean Corpuscular Hemoglobin 29.6 pg (28.0-34.0); Mean Corpuscular Volume 90.6 fl (80-94); Mean Platelet Volume 9.7 fL (7.4-10.4); Platelet Count 92 10^3/cmm (130-400); Red Blood Count 4.06 10^6/uL (4.1-5.3); Red Cell Distribution Width 14.3 % (12.1-15.1); White Blood Count 5.7 10^3/uL (4.0-10.0)
[2021-08-21 15:20] LABS: Alanine Aminotransferase 14 U/L (0-41); Albumin Level 4.4 g/dL (3.5-5.2); Alkaline Phosphatase 70 IU/L (40-130); Anion Gap 16.3 (5-19); Aspartate Amino Transferase 19 U/L (0-40); Blood Urea Nitrogen 56 mg/dL (8-23); Calcium 9.4 mg/dL (8.5-10.5); Carbon Dioxide 23 mmol/L (22-29); Chloride 100 mmol/L (98-107); Globulin 2.6 g/dL (1.3-4.6); Glucose 232 mg/dL (65-115); Lactate Dehydrogenase 271 U/L (135-225); Osmolality Calculated 301 mOsm/kg (285-295); Potassium 5.3 mmol/L (3.5-5.1); Sodium 134 mmol/L (136-145); Total Bilirubin 1.2 mg/dL (0.15-1.2)
[2021-08-21 15:23] LABS: Slide Review Slide Review Perform
[2021-08-21 15:24] LABS: Absolute Eosinophils 0.1 10^3/cmm (0.0-0.7); Absolute Neutrophil 4.3 10^3/cmm (1.4-6.5); Absolute Segmented Neutrophil 4.3 10/cmm (1.6-7.1); Band Neutrophils Absolute 0.1 10^3/cmm (0.0-1.2); Eosinophils 2 %; Lymphocytes 18 %; Platelet Estimate Decreased (Normal); Segmented Neutrophils 75 %; Total Cells Counted 100 (0-100)
--- NOTE | 2021-08-24 18:15 | ONC FU_ITS ---
Dr. Mann Patient Follow-Up Note Patient: Valente Renae Unit #: [id number]: 1945 Dicatated By: Gagandeep Mann M.D.Date of Visit:Aug 21, 2021 Onc Med Follow-up/Prog Note Chief Complaint: Chronic lymphocytic leukemia. History of Present Illness: This is a 76 year-old man with chronic lymphocytic leukemia, Kwok stage III. I had seen him initially in January of 2010 with a mild anemia and thrombocytopenia. At that time, he had been having episodes of low-grade fever with chills and generalized aching. Bone marrow aspiration/biopsy in February of 2010 was mildly hypercellular. It also showed evidence of a monoclonal B-cell lymphoproliferative process consistent with chronic lymphocytic leukemia. It comprised approximately 50% of the marrow cellularity. At that time the leukemia did not appear to be symptomatic, and he was initially just managed with observation. On a followup visit in November 2013 he had reported having 2 more febrile episodes. At that time he was noted to be mildly anemic with hemoglobin 10.7 g and his platelet count was normal at 144,000. His white blood cell count was elevated at 37,000, but that actually was down compared to the study the previous March. His LDH level was significantly elevated at 404/241 units per liter. Bone marrow aspiration/biopsy on 12/22/2013 showed 90 to 100% cellularity with the differential showing 72% lymphocytes. The chromosome analysis showed trisomy [address] scans showed interval splenomegaly with hamzah hepatis lymphadenopathy, the largest measuring 1.8 and 1.9 cm. Also noted was a 9 mm noncalcified pulmonary nodule in the left upper lobe. I had talked to him about the possibility of starting treatment, which he indicated he wanted to put off as long as possible. Followup laboratory studies in December 2013 showed some increase in his lymphocyte count. His hemoglobin was stable and his platelet count was just borderline low. His LDH level had returned to normal, and I opted to continue observation. During subsequent follow-up he continued to have occasional episodes of fever/chills, sometimes associated with nausea/vomiting and diarrhea. He was hospitalized again in January 2015. A subsequent HIDA scan showed no evidence of biliary obstruction, but the gallbladder ejection fraction was low at 19%. More recently he had been having pain in the right flank and right side of the back. He was noted to have a large cyst in the right kidney, and he underwent percutaneous drainage of the cyst on 07/24/2015. That procedure precipitated another spell . I had seen him for a follow-up visit on 08/09/2015. As there was no other obvious explanation for his symptoms, we opted to initiate treatment for the chronic lymphocytic leukemia. He returned on 08/22/2015 to begin cycle one of bendamustine/Rituxan. He did not complete treatment that day because of a mild infusion reaction with the Rituxan. However, with premedication, he was then able to complete his first cycle of treatment on 08/23 and 08/25/2015 with no acute toxicity. However, he subsequently presented with a generalized erythematous, itchy skin eruption. It was undoubtedly a hypersensitivity reaction, most likely to either the Rituxan or to the bendamustine. Allopurinol also was a possibility, though. He was given a short course of systemic steroid followed by topical steroid therapy. He returned 2 days later with swelling in the left arm. Venous Doppler showed features of thrombosis of the left cephalic vein from the anterior cubital fossa to the biceps. Other veins were noted to be patent. As such, I felt there was no definite indication for anticoagulation. On a followup visit in October 2015, the swelling and the skin eruption had resolved. He was feeling much better, and his hemoglobin had increased significantly, to 12.7 g. I did not attempt any further treatment. He was then continued on observation/expectant management. As of his follow-up visit on 08/22/2016 his white blood cell count was just mildly elevated at 17,000 with hemoglobin stable at 13.0 g and platelet count 135,000. He was seen again for a follow-up visit on 12/17/2016. His white blood cell count had increased to 42,000, his hemoglobin was stable at 12.8 g and his platelet count was normal at 148,000. He reported that a week earlier he did experience another episode of nausea/vomiting and chills. Fever was suspected but not documented. At the time of that visit his symptoms had improved significantly, and I opted to just continue with observation. As of his followup visit on 04/23/2017 he had experienced 2 further episodes with fever and nausea/vomiting. Both lasted only a few days and resolved without specific treatment. He had otherwise been feeling good. His white count at that point it increased to 58,000. Hemoglobin/hematocrit levels were stable. The platelet count was mildly decreased at 115,000. He continued observation/expectant management. He was seen for a follow-up visit again on 11/03/2017. At that point his white blood cell count had increased to 76,800 with his hemoglobin mildly decreased to 10.8 g and platelet count mildly decreased at 101,000. He appeared to be getting more overtly symptomatic, and at that point I did recommend that he begin second line treatment with ibrutinib. In preparation for starting the ibrutinib, he began prophylaxis with allopurinol 300 mg daily. He broke out with an erythematous skin eruption after the first dosage, and it was put on hold. He was then given a prescription for Uloric, but that he also stopped after the first dosage because of concerns of side effects. Ultimately, I did opt to treat him prophylactically with rasburicase, as I felt that he would be at very high risk for tumor lysis. He was given a single dose of rasburicase on 02/11/2018. He then started ibrutinib 420 mg daily on 02/12/2018. During subsequent follow-up, his white blood cell count had initially remained stable or slightly increased, but there was some improvement in the hemoglobin/hematocrit levels. As of 06/19/2018 the hemoglobin was 11.5 g with white blood cell count 82,000 and platelet count 133,000. He continued ibrutinib at 420 mg daily. He was seen for a scheduled visit on 09/14/2018. At that time he had multiple complaints including fatigue, excessive somnolence, and some confusion. His blood counts looked okay, but with those changes I did opt to have him stop the ibrutinib. As of his follow-up visit on 10/07/2018 he was feeling somewhat better, and he continued on observation/expectant management. On 11/03/2018 he had reported recurrence of fever/chills and nausea. He was given IV hydration for 2 days, and his symptoms improved. The preceding week he had required IV hydration for similar symptoms. At that point it did appear likely that his CLL had become symptomatic again. On 12/03/2018 he restarted treatment with ibrutinib at a reduced dosage of 280 mg daily. At day 15 he was given an infusion of rasburicase due to an increase in his uric acid level. During further follow-up, there was an increase in his lymphocyte count, as expected, but he was otherwise tolerating the treatment well. I had seen him for a follow-up visit on 01/27/2019. At that point he had developed severe muscle cramping, and I did opt to put his ibrutinib on hold. On 02/14/2019 he was admitted to the hospital after presenting to the emergency room with chest pain. He was hypertensive, and his creatinine at increased to 3.2 mg/dL. He had a slightly elevated troponin, significance of which was uncertain. A nuclear stress test showed some olvin-infarct ischemia, but mild. He had cardiology consultation with Dr. Orellana, and medical management was recommended. At discharge his creatinine had come back down to 2.8 mg/dL. Metoprolol was added to his medication regimen. He was seen for a follow-up visit on 02/24/2019. At that point he was acutely ill with another sick spell , including nausea/vomiting and diarrhea. He was given IV hydration and symptomatic management. His ibrutinib remained on hold. As of his follow-up visit on 03/03/2019 he was feeling better, and at that point he restarted ibrutinib with a further dose reduction to 140 mg daily. As of his follow-up visit in December 2019 there has been some further decline in his lymphocyte count. His other blood counts remained adequate, and he continued the ibrutinib at 140 mg daily. On 01/08/2021 he was admitted to the hospital with COVID-19 virus pneumonia. He had a complicated clinical course, requiring 2 subsequent hospitalizations. He was discharged home on 01/29/2021. With the initial hospitalization, I had recommended that they stop his ibrutinib. His other medical illnesses include hypertension, hyperlipidemia, type 2 diabetes, and coronary artery disease. He also has chronic kidney disease which has progressed to stage IV. In October 2014 he was admitted to the hospital with complete heart block, and he underwent placement of a permanent pacemaker. INTERIM HISTORY: As of his visit on 02/12/2021 he was showing some recovery, and I opted to continue expectant management for the CLL. However, by April 2021 there had been a significant increase in his lymphocyte count. His restaging CT scans showed some mild mediastinal and hilar adenopathy and his spleen was noted to be larger. He was getting more fatigued, and at that point he proceed to third-line treatment with venetoclax in combination with rituximab. Due to his underlying chronic kidney disease and hyperuricemia, he was given pretreatment IV hydration and he was given an IV infusion of rasburicase prophylactically. On 05/30/2021 he began venetoclax at 25 mg daily. He was then able to escalate to 50 mg daily and subsequently to 100 mg daily. As of 06/25/2021 his treatment was put on hold due to a drop in the platelet count to 78,000. His hemoglobin at that point had increased to 10.3 g and his white blood cell count had decreased to 7100 with absolute neutrophil count 2000. On 07/02/2021 he restarted the venetoclax at 100 mg daily with his platelet count back up to 107,000. He stopped it 2 weeks later when he developed pretty severe pain and numbness in both shoulders and arms. After 3 days off treatment, he tried going back on it, but with the recurrence of the symptoms, and at that point he did stop taking it again. He is seen for a follow-up visit. He has been feeling okay, though over the past weekend he did run some low-grade fever. On Friday he felt completely wore out and he had could not hardly move. He also had a cold feeling inside. Early this morning he had 2 episodes of diarrhea. He says he is feeling a little better now. Prior to this he had been feeling okay, though still with limited activity. His ECOG score is 1. He has had no appetite for the past 3 days. He has not been having night sweating. He says his sinuses are terrible. He has a little bit of sore throat. He has been constantly hacking up clear phlegm. He does not complain of shortness of breath or chest pain. He has had some nausea this morning, but no vomiting. His bowels have otherwise been okay. He has frequent urination. He says it is constant. He has joint pain in his hands and in his knees and feet. 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 He is still having occasional numbness in his arms. He has some bruising, but not too bad. Medications: Aspirin 1 (81 mg) Tablet Oral daily, Atorvastatin Calcium 1 Tablet (of 40 mg) Oral daily, Cholecalciferol 1 (50 mcg) Tablet Oral daily, Clopidogrel Bisulfate 1 Tablet (of 75 mg) Oral daily, Correctol Extra Gentle 1 Capsule (of 100 mg) Oral b.i.d. PRN, Finasteride 1 Tablet (of 5 mg) Oral daily, Flonase 1 (50 mcg/act) Suspension Nasal daily, Glucosamine Chond Cmp Advanced 1 Tablet Oral daily, Isosorbide Mononitrate ER 1 Tablet (of 60 mg) Tablet SR 24 HR Oral daily, Lantus 15 Units (of 100 Units/mL) Subcutaneous daily, NIFEdipine ER 1 Tablet (of 30 mg) Tablet SR 24 HR Oral daily, Nitroglycerin Tablet, sublingual Sublingual PRN, Nitroglycerin Tablet, sublingual Sublingual PRN, NovoLOG (100 Units/mL) Subcutaneous Take as Directed, Sodium Bicarbonate 1 Tablet Oral q 8 hours, Tamsulosin HCl 1 Capsule Oral daily, Tylenol 2 (325 mg) Tablet Oral q 4 hours PRN Allergies: Allopurinol, Iodine, and Levaquin. Vital Signs: Performed on Aug 21, 2021 16:11 Height - 71.00 in Weight - 239.8 lbs (LOW) BSA - 2.28 sq.m BMI - 33.45 (HIGH) Temperature - 98.4 F Pulse - 115 /min (HIGH) Respiration - 18 /min BP - 168/66 mm(hg) (HIGH) O2 Sat - 95 % (LOW) Pain - 0 Fatigue - 7 Physical Examination: Constitutional - He looks a little bit weak generally, Eyes - Sclerae nonicteric. Conjunctivae clear, ENMT - No lesions noted in the oral cavity, Hematologic/Lymphatic - No cervical, clavicular, or axillary adenopathy, Respiratory - Lungs sound clear with good air movement bilaterally, Cardiovascular - Heart rhythm is regular. There is a II/ systolic murmur. There is no gallop or rub noted, Abdomen - Mildy distended. Liver and spleen are not enlarged. There is no abdominal mass or ascites noted and there is no inguinal adenopathy, Extremities - No edema, Neurologic - No focal neurologic deficits noted. Lab/Imaging: Test performed on Aug 21, 2021 14:45 LDH (Total) 271 U/L Sodium 134 mmol/L Potassium 5.3 mmol/L Chloride 100 mmol/L CO2 23 mmol/L Anion Gap 16.3 BUN 56 mg/dL Creatinine 2.8 mg/dL Cr Clearance (Est) 35.3800 mL/min Glucose 232 mg/dL Osmolality - Calculated 301 mOsm/kg Calcium 9.4 mg/dL Protein, Total 7.0 g/dL Albumin 4.4 g/dL Globulin 2.6 g/dL Bilirubin, Total 1.2 mg/dL ALT (SGPT) 14 U/L AST (SGOT) 19 U/L Alkaline Phosphatase 70 IU/L WBC 5.7 10 3/uL Manual Segs % 75 % Manual Bands % 1.0 % RBC 4.06 10 6/uL HGB 12.0 g/dL Manual Lymphs % 18 % Atypical Lymphs % 0.0 % HCT 36.8 % MCV 90.6 fl Total Cells Counted 100 Manual Monos % 0.0 % MCH 29.6 pg Manual Eos % 2 % MCHC 32.6 g/dL Manual Basos % 0.0 % RDW 14.3 % Metamyelocytes % 4.0 % Platelet Count 92 10 3/cmm MPV 9.7 fL CBC Slide Review Slide Review Perform IG PRESENT ON SLIDE REVIEW. MANUAL DIFF ORDERED. Platelet Estimate Decreased Manual Segs Abs 4.3 10/cmm Manual Bands Abs 0.1 10 3/cmm Manual Neutrophils Abs 4.3 10 3/cmm Manual Lymphocytes Abs 1.0 10 3/cmm Manual Monocytes Abs 0.0 10 3/cmm Manual Eosinophils Abs 0.1 10 3/cmm Manual Basophils Abs 0.0 10 3/cmm Problem List: 1. Chronic lymphocytic leukemia, initially diagnosed in February 2010. 2. Hypertension. 3. Hyperlipidemia. 4. Type II diabetes. 5. Chronic kidney disease. 6. Coronary artery disease. 7. History of complete heart block, requiring placement of permanent pacemaker. Problems Addressed with this Encounter and Plan: 1. Patient with chronic lymphocytic leukemia, initially diagnosed in February 2010. He was initially managed with observation, as he had multiple other medical illnesses and he desired conservative management. During his follow-up he continued to have wide fluctuations in his lymphocyte count, for which no rational explanation was found. He also had remained mildly anemic. His platelet counts had varied between low normal to mildly decreased. On several occasions his LDH level had been significantly elevated, but it was never consistently elevated. As of July 2015 he began treatment with bendamustine/Rituxan, as it appeared that his disease had become symptomatic. He had a mild infusion reaction with the initial attempt at the Rituxan infusion, and it was abandoned. He then returned on 08/24/2015 and with steroid premedication he was able to complete cycle 1 of bendamustine/Rituxan with no acute toxicity. He had subsequently presented with generalized erythroderma, consistent with hypersensitivity reaction to his treatment. The skin eruption subsequently resolved. It was never determined with certainty whether the reaction was to Rituxan, to bendamustine, or to allopurinol. However, he did have a very good response to the treatment. As of his follow-up visit on 11/03/2017 he has been showing a gradual increase in his lymphocyte count, and it appeared that his disease was getting symptomatic again. He ulltimately started treatment with ibrutinib 420 mg daily on 02/12/2018. He had a good clinical response, and he initially tolerated it well. However, as of his follow-up visit on 09/14/2018 his ibrutinib was put on hold due to multiple complaints including fatigue, excessive somnolence, and confusion. During subsequent follow-up his blood counts had remained adequately controlled, though he continued to have significant fatigue. On 12/03/2018 he restarted treatment with ibrutinib at a reduced dosage of 280 mg daily. At day 15 he was given an infusion of rasburicase due to an increase in his uric acid level. During further follow-up there was an increase in his lymphocyte count, as expected, but he had no further sick spells or other obvious CLL related symptoms. At his follow-up visit on 01/27/2019 he complained of severe muscle cramping, and his ibrutinib was put on hold. As of 03/03/2019 he restarted ibrutinib with a further dose reduction to 140 mg daily. During follow-up there was an increase in his lymphocyte count, as expected, but that subsequently stabilized, and during further follow-up the lymphocyte count began to gradually decline. He remained mildly anemic and he continued to have mild thrombocytopenia. As of his follow-up visit in December 2019 his overall clinical status appeared stable, and he continued the ibrutinib at 140 mg daily. On 01/08/2021 he was admitted to the hospital with COVID-19 virus pneumonia. He had a complicated clinical course, but he did show gradual recovery. However, by April 2021 he had become more fatigued. At that point there was a significant increase in his lymphocyte count and restaging CT scans showed an increase in his spleen size. With those findings, he was recommended to proceed with third line treatment with venetoclax in combination with rituximab. He began his venetoclax dose escalation on 05/30/2021. Due to underlying chronic kidney disease and hyperuricemia, he was given pretreatment IV hydration and an infusion of rasburicase prophylactically. He had some transient low-grade fever during the first week of treatment. He otherwise tolerated it well, and he was then able to increase the venetoclax dosage to 50 mg daily and subsequently to 100 mg daily. As of 06/25/2021 his treatment was put on hold due to a drop in his platelet count to 78,000. On 07/02/2021 he restarted venetoclax 100 mg daily with his platelet count back up to 107,000. Since then his blood counts have remained adequate, but he has been off the medication since 07/16/2021 due to development of pretty severe pain and numbness in both shoulders/arms, which I assume is treatment related. Based on his follow-up blood counts he appeared to be showing a very good response to the venetoclax. However, he was not able to tolerate it with the dosage escalated to 100 mg daily. At this point I will have him restart the venetoclax with the dosage reduced back to 25 mg daily. He will be scheduled for a follow-up visit in 2 weeks. Signed By: Gagandeep Mann M.D. <<Signature on File>>
[2021-09-20 09:14] LABS: Basophils % 0.3 %; Eosinophils # 0.3 10^3/uL (0.0-0.8); Hematocrit 35.1 % (42.0-52.0); Hemoglobin 11.2 g/dL (11.7-16.6); Lymphocytes # 8.2 10^3/uL (0.8-4.8); Lymphocytes % 71.1 %; Mean Corpuscular HGB Conc 31.9 g/dL (30.0-36.0); Mean Corpuscular Hemoglobin 29.3 pg (28.0-34.0); Mean Corpuscular Volume 91.9 fl (80-94); Mean Platelet Volume 9.4 fL (7.4-10.4); Monocytes # 0.3 10^3/uL (0.2-0.9); Monocytes % 2.7 %; Neutrophils # 2.61 10^3/uL (1.8-7.7); Neutrophils % 22.6 %; Nucleated Red Blood Cells % 0 %; Platelet Count 65 10^3/cmm (130-400); Red Blood Count 3.82 10^6/uL (4.1-5.3); Red Cell Distribution Width 13.6 % (12.1-15.1); White Blood Count 11.5 10^3/uL (4.0-10.0)
[2021-09-20 09:45] LABS: Alanine Aminotransferase 11 U/L (0-41); Albumin Level 4.3 g/dL (3.5-5.2); Alkaline Phosphatase 76 IU/L (40-130); Anion Gap 16.5 (5-19); Aspartate Amino Transferase 11 U/L (0-40); Blood Urea Nitrogen 55 mg/dL (8-23); Calcium 9.5 mg/dL (8.5-10.5); Carbon Dioxide 21 mmol/L (22-29); Chloride 104 mmol/L (98-107); Globulin 1.8 g/dL (1.3-4.6); Glucose 236 mg/dL (65-115); Lactate Dehydrogenase 212 U/L (135-225); Osmolality Calculated 305 mOsm/kg (285-295); Potassium 5.5 mmol/L (3.5-5.1); Sodium 136 mmol/L (136-145); Total Bilirubin 0.4 mg/dL (0.15-1.2); Total Protein 6.1 g/dL (6.6-8.7)
[2021-09-20 10:31] LABS: Slide Review Slide Review Perform
--- NOTE | 2021-09-20 16:20 | ONC FU_ITS ---
Dr. Mann Patient Follow-Up Note Patient: Valente Renae Unit #: [id number]: 1945 Dicatated By: Gagandeep Mann M.D.Date of Visit:Sep 20, 2021 Onc Med Follow-up/Prog Note Chief Complaint: Chronic lymphocytic leukemia. History of Present Illness: This is a 76 year-old man with chronic lymphocytic leukemia, Kwok stage III. I had seen him initially in January of 2010 with a mild anemia and thrombocytopenia. At that time, he had been having episodes of low-grade fever with chills and generalized aching. Bone marrow aspiration/biopsy in February of 2010 was mildly hypercellular. It also showed evidence of a monoclonal B-cell lymphoproliferative process consistent with chronic lymphocytic leukemia. It comprised approximately 50% of the marrow cellularity. At that time the leukemia did not appear to be symptomatic, and he was initially just managed with observation. On a followup visit in November 2013 he had reported having 2 more febrile episodes. At that time he was noted to be mildly anemic with hemoglobin 10.7 g and his platelet count was normal at 144,000. His white blood cell count was elevated at 37,000, but that actually was down compared to the study the previous March. His LDH level was significantly elevated at 404/241 units per liter. Bone marrow aspiration/biopsy on 12/22/2013 showed 90 to 100% cellularity with the differential showing 72% lymphocytes. The chromosome analysis showed trisomy [address] scans showed interval splenomegaly with hamzah hepatis lymphadenopathy, the largest measuring 1.8 and 1.9 cm. Also noted was a 9 mm noncalcified pulmonary nodule in the left upper lobe. I had talked to him about the possibility of starting treatment, which he indicated he wanted to put off as long as possible. Followup laboratory studies in December 2013 showed some increase in his lymphocyte count. His hemoglobin was stable and his platelet count was just borderline low. His LDH level had returned to normal, and I opted to continue observation. During subsequent follow-up he continued to have occasional episodes of fever/chills, sometimes associated with nausea/vomiting and diarrhea. He was hospitalized again in January 2015. A subsequent HIDA scan showed no evidence of biliary obstruction, but the gallbladder ejection fraction was low at 19%. More recently he had been having pain in the right flank and right side of the back. He was noted to have a large cyst in the right kidney, and he underwent percutaneous drainage of the cyst on 07/24/2015. That procedure precipitated another spell . I had seen him for a follow-up visit on 08/09/2015. As there was no other obvious explanation for his symptoms, we opted to initiate treatment for the chronic lymphocytic leukemia. He returned on 08/22/2015 to begin cycle one of bendamustine/Rituxan. He did not complete treatment that day because of a mild infusion reaction with the Rituxan. However, with premedication, he was then able to complete his first cycle of treatment on 08/23 and 08/25/2015 with no acute toxicity. However, he subsequently presented with a generalized erythematous, itchy skin eruption. It was undoubtedly a hypersensitivity reaction, most likely to either the Rituxan or to the bendamustine. Allopurinol also was a possibility, though. He was given a short course of systemic steroid followed by topical steroid therapy. He returned 2 days later with swelling in the left arm. Venous Doppler showed features of thrombosis of the left cephalic vein from the anterior cubital fossa to the biceps. Other veins were noted to be patent. As such, I felt there was no definite indication for anticoagulation. On a followup visit in October 2015, the swelling and the skin eruption had resolved. He was feeling much better, and his hemoglobin had increased significantly, to 12.7 g. I did not attempt any further treatment. He was then continued on observation/expectant management. As of his follow-up visit on 08/22/2016 his white blood cell count was just mildly elevated at 17,000 with hemoglobin stable at 13.0 g and platelet count 135,000. He was seen again for a follow-up visit on 12/17/2016. His white blood cell count had increased to 42,000, his hemoglobin was stable at 12.8 g and his platelet count was normal at 148,000. He reported that a week earlier he did experience another episode of nausea/vomiting and chills. Fever was suspected but not documented. At the time of that visit his symptoms had improved significantly, and I opted to just continue with observation. As of his followup visit on 04/23/2017 he had experienced 2 further episodes with fever and nausea/vomiting. Both lasted only a few days and resolved without specific treatment. He had otherwise been feeling good. His white count at that point it increased to 58,000. Hemoglobin/hematocrit levels were stable. The platelet count was mildly decreased at 115,000. He continued observation/expectant management. He was seen for a follow-up visit again on 11/03/2017. At that point his white blood cell count had increased to 76,800 with his hemoglobin mildly decreased to 10.8 g and platelet count mildly decreased at 101,000. He appeared to be getting more overtly symptomatic, and at that point I did recommend that he begin second line treatment with ibrutinib. In preparation for starting the ibrutinib, he began prophylaxis with allopurinol 300 mg daily. He broke out with an erythematous skin eruption after the first dosage, and it was put on hold. He was then given a prescription for Uloric, but that he also stopped after the first dosage because of concerns of side effects. Ultimately, I did opt to treat him prophylactically with rasburicase, as I felt that he would be at very high risk for tumor lysis. He was given a single dose of rasburicase on 02/11/2018. He then started ibrutinib 420 mg daily on 02/12/2018. During subsequent follow-up, his white blood cell count had initially remained stable or slightly increased, but there was some improvement in the hemoglobin/hematocrit levels. As of 06/19/2018 the hemoglobin was 11.5 g with white blood cell count 82,000 and platelet count 133,000. He continued ibrutinib at 420 mg daily. He was seen for a scheduled visit on 09/14/2018. At that time he had multiple complaints including fatigue, excessive somnolence, and some confusion. His blood counts looked okay, but with those changes I did opt to have him stop the ibrutinib. As of his follow-up visit on 10/07/2018 he was feeling somewhat better, and he continued on observation/expectant management. On 11/03/2018 he had reported recurrence of fever/chills and nausea. He was given IV hydration for 2 days, and his symptoms improved. The preceding week he had required IV hydration for similar symptoms. At that point it did appear likely that his CLL had become symptomatic again. On 12/03/2018 he restarted treatment with ibrutinib at a reduced dosage of 280 mg daily. At day 15 he was given an infusion of rasburicase due to an increase in his uric acid level. During further follow-up, there was an increase in his lymphocyte count, as expected, but he was otherwise tolerating the treatment well. I had seen him for a follow-up visit on 01/27/2019. At that point he had developed severe muscle cramping, and I did opt to put his ibrutinib on hold. On 02/14/2019 he was admitted to the hospital after presenting to the emergency room with chest pain. He was hypertensive, and his creatinine at increased to 3.2 mg/dL. He had a slightly elevated troponin, significance of which was uncertain. A nuclear stress test showed some olvin-infarct ischemia, but mild. He had cardiology consultation with Dr. Orellana, and medical management was recommended. At discharge his creatinine had come back down to 2.8 mg/dL. Metoprolol was added to his medication regimen. He was seen for a follow-up visit on 02/24/2019. At that point he was acutely ill with another sick spell , including nausea/vomiting and diarrhea. He was given IV hydration and symptomatic management. His ibrutinib remained on hold. As of his follow-up visit on 03/03/2019 he was feeling better, and at that point he restarted ibrutinib with a further dose reduction to 140 mg daily. As of his follow-up visit in December 2019 there has been some further decline in his lymphocyte count. His other blood counts remained adequate, and he continued the ibrutinib at 140 mg daily. On 01/08/2021 he was admitted to the hospital with COVID-19 virus pneumonia. He had a complicated clinical course, requiring 2 subsequent hospitalizations. He was discharged home on 01/29/2021. With the initial hospitalization, I had recommended that they stop his ibrutinib. His other medical illnesses include hypertension, hyperlipidemia, type 2 diabetes, and coronary artery disease. He also has chronic kidney disease which has progressed to stage IV. In October 2014 he was admitted to the hospital with complete heart block, and he underwent placement of a permanent pacemaker. INTERIM HISTORY: As of his visit on 02/12/2021 he was showing some recovery, and I opted to continue expectant management for the CLL. However, by April 2021 there had been a significant increase in his lymphocyte count. His restaging CT scans showed some mild mediastinal and hilar adenopathy and his spleen was noted to be larger. He was getting more fatigued, and at that point he proceed to third-line treatment with venetoclax in combination with rituximab. Due to his underlying chronic kidney disease and hyperuricemia, he was given pretreatment IV hydration and he was given an IV infusion of rasburicase prophylactically. On 05/30/2021 he began venetoclax at 25 mg daily. He was then able to escalate to 50 mg daily and subsequently to 100 mg daily. As of 06/25/2021 his treatment was put on hold due to a drop in the platelet count to 78,000. His hemoglobin at that point had increased to 10.3 g and his white blood cell count had decreased to 7100 with absolute neutrophil count 2000. On 07/02/2021 he restarted the venetoclax at 100 mg daily with his platelet count back up to 107,000. He stopped it 2 weeks later when he developed pretty severe pain and numbness in both shoulders and arms. After 3 days off treatment, he tried going back on it, but with the recurrence of the symptoms, and at that point he did stop taking it again. He is seen for a follow-up visit. He has been feeling okay. His does have limited activity, but mainly to heart issues. He has been getting angina pain, particularly if he tries to walk fast. He has been taking nitroglycerin for it. He says he needs another stent, but they have been reluctant to attempt the procedure because of his renal function. His ECOG score is 1. He has good appetite. He has no fever or night sweats. He has not had sore mouth or throat. He does not complain of cough. He does have some shortness of breath with activity. He has no GI complaints. He does have some difficulty voiding, mainly urgency. He has pain in his hands, and he is developing contractures. He does not complain of headache. He has occasional orthostatic lightheadedness. He has some numbness in his fingers. Medications: Aspirin 1 (81 mg) Tablet Oral daily, Atorvastatin Calcium 1 Tablet (of 40 mg) Oral daily, Cholecalciferol 1 (50 mcg) Tablet Oral daily, Clopidogrel Bisulfate 1 Tablet (of 75 mg) Oral daily, Correctol Extra Gentle 1 Capsule (of 100 mg) Oral b.i.d. PRN, Finasteride 1 Tablet (of 5 mg) Oral daily, Flonase 1 (50 mcg/act) Suspension Nasal daily, Glucosamine Chond Cmp Advanced 1 Tablet Oral daily, Isosorbide Mononitrate ER 1 Tablet (of 60 mg) Tablet SR 24 HR Oral daily, Lantus 15 Units (of 100 Units/mL) Subcutaneous daily, NIFEdipine ER 1 Tablet (of 30 mg) Tablet SR 24 HR Oral daily, Nitroglycerin Tablet, sublingual Sublingual PRN, Nitroglycerin Tablet, sublingual Sublingual PRN, NovoLOG (100 Units/mL) Subcutaneous Take as Directed, Sodium Bicarbonate 1 Tablet Oral q 8 hours, Tamsulosin HCl 1 Capsule Oral daily, Tylenol 2 (325 mg) Tablet Oral q 4 hours PRN Allergies: Allopurinol, Iodine, and Levaquin. Vital Signs: Performed on Sep 20, 2021 11:37 Height - 71.00 in Weight - 249.0 lbs (HIGH) BSA - 2.31 sq.m BMI - 34.73 (HIGH) Temperature - 97.7 F (LOW) Pulse - 106 /min (HIGH) Respiration - 18 /min BP - 154/71 mm(hg) (HIGH) O2 Sat - 96 % Pain - 0 Fatigue - 5 Physical Examination: Constitutional - He looks pretty good generally, Eyes - Sclerae nonicteric. Conjunctivae clear, ENMT - No lesions noted in the oral cavity, Hematologic/Lymphatic - No cervical, clavicular, or axillary adenopathy, Respiratory - Lungs sound clear with good air movement bilaterally, Cardiovascular - Heart rhythm is regular. There is a II/ systolic murmur. There is no gallop or rub noted, Abdomen - Mildy distended. Liver and spleen are not enlarged. There is no abdominal mass or ascites noted and there is no inguinal adenopathy, Extremities - No edema. There are fibrotic changes on the palmar surfaces of both hands, more prominent on the left, Neurologic - No focal neurologic deficits noted. Lab/Imaging: Test performed on Sep 20, 2021 09:03 LDH (Total) 212 U/L Sodium 136 mmol/L Potassium 5.5 mmol/L Chloride 104 mmol/L CO2 21 mmol/L Anion Gap 16.5 BUN 55 mg/dL Creatinine 3.0 mg/dL Cr Clearance (Est) 33.0200 mL/min Glucose 236 mg/dL Osmolality - Calculated 305 mOsm/kg Calcium 9.5 mg/dL Protein, Total 6.1 g/dL Albumin 4.3 g/dL Globulin 1.8 g/dL Bilirubin, Total 0.4 mg/dL ALT (SGPT) 11 U/L AST (SGOT) 11 U/L Alkaline Phosphatase 76 IU/L WBC 11.5 10 3/uL RBC 3.82 10 6/uL HGB 11.2 g/dL HCT 35.1 % MCV 91.9 fl MCH 29.3 pg MCHC 31.9 g/dL RDW 13.6 % Platelet Count 65 10 3/cmm MPV 9.4 fL Neutrophils 2.61 10 3/uL Lymphocytes 8.2 10 3/uL Monocytes 0.3 10 3/uL Eosinophils 0.3 10 3/uL Basophils 0.0 10 3/uL Neutrophil % 22.6 % Lymphocyte % 71.1 % Monocyte % 2.7 % Eosinophil % 3.0 % Basophils % 0.3 % NRBC % 0 % CBC Slide Review Slide Review Perform SLIDE REVIEW AGREES WITH AUTOMATED RESULTS ST Problem List: 1. Chronic lymphocytic leukemia, initially diagnosed in February 2010. 2. Hypertension. 3. Hyperlipidemia. 4. Type II diabetes. 5. Chronic kidney disease. 6. Coronary artery disease. 7. History of complete heart block, requiring placement of permanent pacemaker. Problems Addressed with this Encounter and Plan: Patient with chronic lymphocytic leukemia, initially diagnosed in February 2010. He was initially managed with observation, as he had multiple other medical illnesses and he desired conservative management. During his follow-up he continued to have wide fluctuations in his lymphocyte count, for which no rational explanation was found. He also had remained mildly anemic. His platelet counts had varied between low normal to mildly decreased. On several occasions his LDH level had been significantly elevated, but it was never consistently elevated. As of July 2015 he began treatment with bendamustine/Rituxan, as it appeared that his disease had become symptomatic. He had a mild infusion reaction with the initial attempt at the Rituxan infusion, and it was abandoned. He then returned on 08/24/2015 and with steroid premedication he was able to complete cycle 1 of bendamustine/Rituxan with no acute toxicity. He had subsequently presented with generalized erythroderma, consistent with hypersensitivity reaction to his treatment. The skin eruption subsequently resolved. It was never determined with certainty whether the reaction was to Rituxan, to bendamustine, or to allopurinol. However, he did have a very good response to the treatment. As of his follow-up visit on 11/03/2017 he has been showing a gradual increase in his lymphocyte count, and it appeared that his disease was getting symptomatic again. He ulltimately started treatment with ibrutinib 420 mg daily on 02/12/2018. He had a good clinical response, and he initially tolerated it well. However, as of his follow-up visit on 09/14/2018 his ibrutinib was put on hold due to multiple complaints including fatigue, excessive somnolence, and confusion. During subsequent follow-up his blood counts had remained adequately controlled, though he continued to have significant fatigue. On 12/03/2018 he restarted treatment with ibrutinib at a reduced dosage of 280 mg daily. At day 15 he was given an infusion of rasburicase due to an increase in his uric acid level. During further follow-up there was an increase in his lymphocyte count, as expected, but he had no further sick spells or other obvious CLL related symptoms. At his follow-up visit on 01/27/2019 he complained of severe muscle cramping, and his ibrutinib was put on hold. As of 03/03/2019 he restarted ibrutinib with a further dose reduction to 140 mg daily. During follow-up there was an increase in his lymphocyte count, as expected, but that subsequently stabilized, and during further follow-up the lymphocyte count began to gradually decline. He remained mildly anemic and he continued to have mild thrombocytopenia. As of his follow-up visit in December 2019 his overall clinical status appeared stable, and he continued the ibrutinib at 140 mg daily. On 01/08/2021 he was admitted to the hospital with COVID-19 virus pneumonia. He had a complicated clinical course, but he did show gradual recovery. However, by April 2021 he had become more fatigued. At that point there was a significant increase in his lymphocyte count and restaging CT scans showed an increase in his spleen size. With those findings, he was recommended to proceed with third line treatment with venetoclax in combination with rituximab. He began his venetoclax dose escalation on 05/30/2021. Due to underlying chronic kidney disease and hyperuricemia, he was given pretreatment IV hydration and an infusion of rasburicase prophylactically. He had some transient low-grade fever during the first week of treatment. He otherwise tolerated it well, and he was then able to increase the venetoclax dosage to 50 mg daily and subsequently to 100 mg daily. As of 06/25/2021 his treatment was put on hold due to a drop in his platelet count to 78,000. On 07/02/2021 he restarted venetoclax 100 mg daily with his platelet count back up to 107,000. Since then his blood counts have remained adequate, but he has been off the medication since 07/16/2021 due to development of pretty severe pain and numbness in both shoulders/arms, which I assumed to have been treatment related. During follow-up his clinical status has remained fairly stable, though he does have limited activity tolerance due to underlying cardiac ischemia. His lymphocyte count now is starting to go back up again and there has been a decrease in his platelet count. As such, he will now restart the venetoclax at 25 mg daily. He will be scheduled for a follow-up visit in 1 month. Signed By: Gagandeep Mann M.D. <<Signature on File>>
== END 2021-09-20 23:59 | disposition home or self-care (01) ==
LOC: ONCMED 06:39
PROVIDERS: PCP Family Medicine; Visit Provider Internal Medicine Medical Oncology
DX: C91.10 Chronic lymphocytic leukemia of B-cell type not having achieved remission (principal); I12.9 Hypertensive chronic kidney disease with stage 1 through stage 4 chronic kidney disease, or unspecified chronic kidney disease; E78.5 Hyperlipidemia, unspecified; E11.22 Type 2 diabetes mellitus with diabetic chronic kidney disease; N18.9 Chronic kidney disease, unspecified; E11.59 Type 2 diabetes mellitus with other circulatory complications; I25.10 Atherosclerotic heart disease of native coronary artery without angina pectoris; Z86.79 Personal history of other diseases of the circulatory system; Z95.0 Presence of cardiac pacemaker; Z79.899 Other long term (current) drug therapy
CPT/HCPCS: 36415; 80053; 83615; 85007; 85025; 99214

== ENCOUNTER 2021-10-17 12:13 | Outpatient (RCR) | payer MEDICARE, OTHER, SELFPAY ==
[2021-10-17 13:06] LABS: Basophils % 0.2 %; Eosinophils # 0.3 10^3/uL (0.0-0.8); Hemoglobin 11.4 g/dL (11.7-16.6); Lymphocytes # 5.9 10^3/uL (0.8-4.8); Lymphocytes % 61.8 %; Mean Corpuscular HGB Conc 31.7 g/dL (30.0-36.0); Mean Corpuscular Hemoglobin 29.2 pg (28.0-34.0); Mean Corpuscular Volume 92.1 fl (80-94); Mean Platelet Volume 9.1 fL (7.4-10.4); Monocytes # 0.4 10^3/uL (0.2-0.9); Monocytes % 4.3 %; Neutrophils # 2.88 10^3/uL (1.8-7.7); Neutrophils % 30.3 %; Nucleated Red Blood Cells % 0 %; Platelet Count 88 10^3/cmm (130-400); Red Blood Count 3.91 10^6/uL (4.1-5.3); White Blood Count 9.5 10^3/uL (4.0-10.0)
[2021-10-17 13:18] LABS: Add Urine Microscopic? NO; Charge for UA Resulting for Rev
[2021-10-17 14:14] LABS: Albumin Level 4.6 g/dL (3.5-5.2); Parathyroid Hormone 61.5 pg/mL (15-65)
[2021-10-17 14:15] LABS: Bilirubin Urine Neg (Negative); Blood Urine Neg (Negative); Glucose Urine UA Norm (Normal); Ketones Urine Negative (Negative); Leukocyte Esterase Urine Negative (Negative); Nitrate Urine Negative (Negative); Protein Urine Neg (Negative); Urine Appearance Clear (CLEAR); Urine Color Yellow (Yellow); Urobilinogen Urine Norm (Negative); pH Urine 5 (5-7)
[2021-10-17 14:15] LABS: Alanine Aminotransferase 12 U/L (0-41); Albumin Level 4.4 g/dL (3.5-5.2); Alkaline Phosphatase 68 IU/L (40-130); Anion Gap 16.2 (5-19); Aspartate Amino Transferase 16 U/L (0-40); Blood Urea Nitrogen 63 mg/dL (8-23); Carbon Dioxide 23 mmol/L (22-29); Chloride 105 mmol/L (98-107); Ferritin 60 ng/mL (30-400); Globulin 2.5 g/dL (1.3-4.6); Glucose 132 mg/dL (65-115); Iron 81 ug/dL (59-158); Lactate Dehydrogenase 239 U/L (135-225); Osmolality Calculated 308 mOsm/kg (285-295); Percent Saturation 37.1 % (20-50); Phosphorus 3.9 mg/dL (2.5-4.5); Potassium 5.2 mmol/L (3.5-5.1); Sodium 139 mmol/L (136-145); Total Bilirubin 0.6 mg/dL (0.15-1.2); Total Iron Binding Capacity 218 mcg/dl; Total Protein 6.9 g/dL (6.6-8.7); Unsaturated Iron Binding 137 ug/dL (112-347); Uric Acid 8.2 mg/dL (3.4-7.0)
[2021-10-17 14:38] LABS: Urine Creatinine 57 mg/dL (39-259); Urine Protein Random 18 mg/dL
--- NOTE | 2021-10-18 08:39 | ONC FU_ITS ---
Alia Samayoa Progress Note Patient: Valente Renae Unit #: [id number]: [id number] Dicatated By: Alia Samayoa N.P.Date of Visit:Oct 17, 2021 Onc MED Follow-up/Prog Note Chief Complaint: Chronic lymphocytic leukemia. History of Present Illness: This is a 76 year-old man with chronic lymphocytic leukemia, Kwok stage III. Dr. Mann had seen him initially in January of 2010 with a mild anemia and thrombocytopenia. At that time, he had been having episodes of low-grade fever with chills and generalized aching. Bone marrow aspiration/biopsy in February of 2010 was mildly hypercellular. It also showed evidence of a monoclonal B-cell lymphoproliferative process consistent with chronic lymphocytic leukemia. It comprised approximately 50% of the marrow cellularity. At that time the leukemia did not appear to be symptomatic, and he was initially just managed with observation. On a followup visit in November 2013 he had reported having 2 more febrile episodes. At that time he was noted to be mildly anemic with hemoglobin 10.7 g and his platelet count was normal at 144,000. His white blood cell count was elevated at 37,000, but that actually was down compared to the study the previous March. His LDH level was significantly elevated at 404/241 units per liter. Bone marrow aspiration/biopsy on 12/22/2013 showed 90 to 100% cellularity with the differential showing 72% lymphocytes. The chromosome analysis showed trisomy [address] scans showed interval splenomegaly with hamzah hepatis lymphadenopathy, the largest measuring 1.8 and 1.9 cm. Also noted was a 9 mm noncalcified pulmonary nodule in the left upper lobe. I had talked to him about the possibility of starting treatment, which he indicated he wanted to put off as long as possible. Followup laboratory studies in December 2013 showed some increase in his lymphocyte count. His hemoglobin was stable and his platelet count was just borderline low. His LDH level had returned to normal, and I opted to continue observation. During subsequent follow-up he continued to have occasional episodes of fever/chills, sometimes associated with nausea/vomiting and diarrhea. He was hospitalized again in January 2015. A subsequent HIDA scan showed no evidence of biliary obstruction, but the gallbladder ejection fraction was low at 19%. More recently he had been having pain in the right flank and right side of the back. He was noted to have a large cyst in the right kidney, and he underwent percutaneous drainage of the cyst on 07/24/2015. That procedure precipitated another spell . Dr. Mann had seen him for a follow-up visit on 08/09/2015. As there was no other obvious explanation for his symptoms, we opted to initiate treatment for the chronic lymphocytic leukemia. He returned on 08/22/2015 to begin cycle one of bendamustine/Rituxan. He did not complete treatment that day because of a mild infusion reaction with the Rituxan. However, with premedication, he was then able to complete his first cycle of treatment on 08/23 and 08/25/2015 with no acute toxicity. However, he subsequently presented with a generalized erythematous, itchy skin eruption. It was undoubtedly a hypersensitivity reaction, most likely to either the Rituxan or to the bendamustine. Allopurinol also was a possibility, though. He was given a short course of systemic steroid followed by topical steroid therapy. He returned 2 days later with swelling in the left arm. Venous Doppler showed features of thrombosis of the left cephalic vein from the anterior cubital fossa to the biceps. Other veins were noted to be patent. As such, I felt there was no definite indication for anticoagulation. On a followup visit in October 2015, the swelling and the skin eruption had resolved. He was feeling much better, and his hemoglobin had increased significantly, to 12.7 g. I did not attempt any further treatment. He was then continued on observation/expectant management. As of his follow-up visit on 08/22/2016 his white blood cell count was just mildly elevated at 17,000 with hemoglobin stable at 13.0 g and platelet count 135,000. He was seen again for a follow-up visit on 12/17/2016. His white blood cell count had increased to 42,000, his hemoglobin was stable at 12.8 g and his platelet count was normal at 148,000. He reported that a week earlier he did experience another episode of nausea/vomiting and chills. Fever was suspected but not documented. At the time of that visit his symptoms had improved significantly, and I opted to just continue with observation. As of his followup visit on 04/23/2017 he had experienced 2 further episodes with fever and nausea/vomiting. Both lasted only a few days and resolved without specific treatment. He had otherwise been feeling good. His white count at that point it increased to 58,000. Hemoglobin/hematocrit levels were stable. The platelet count was mildly decreased at 115,000. He continued observation/expectant management. He was seen for a follow-up visit again on 11/03/2017. At that point his white blood cell count had increased to 76,800 with his hemoglobin mildly decreased to 10.8 g and platelet count mildly decreased at 101,000. He appeared to be getting more overtly symptomatic, and at that point I did recommend that he begin second line treatment with ibrutinib. In preparation for starting the ibrutinib, he began prophylaxis with allopurinol 300 mg daily. He broke out with an erythematous skin eruption after the first dosage, and it was put on hold. He was then given a prescription for Uloric, but that he also stopped after the first dosage because of concerns of side effects. Ultimately, Dr. Mann did opt to treat him prophylactically with rasburicase, as he felt that he would be at very high risk for tumor lysis. He was given a single dose of rasburicase on 02/11/2018. He then started ibrutinib 420 mg daily on 02/12/2018. During subsequent follow-up, his white blood cell count had initially remained stable or slightly increased, but there was some improvement in the hemoglobin/hematocrit levels. As of 06/19/2018 the hemoglobin was 11.5 g with white blood cell count 82,000 and platelet count 133,000. He continued ibrutinib at 420 mg daily. He was seen for a scheduled visit on 09/14/2018. At that time he had multiple complaints including fatigue, excessive somnolence, and some confusion. His blood counts looked okay, but with those changes I did opt to have him stop the ibrutinib. As of his follow-up visit on 10/07/2018 he was feeling somewhat better, and he continued on observation/expectant management. On 11/03/2018 he had reported recurrence of fever/chills and nausea. He was given IV hydration for 2 days, and his symptoms improved. The preceding week he had required IV hydration for similar symptoms. At that point it did appear likely that his CLL had become symptomatic again. On 12/03/2018 he restarted treatment with ibrutinib at a reduced dosage of 280 mg daily. At day 15 he was given an infusion of rasburicase due to an increase in his uric acid level. During further follow-up, there was an increase in his lymphocyte count, as expected, but he was otherwise tolerating the treatment well. Dr. Mann had seen him for a follow-up visit on 01/27/2019. At that point he had developed severe muscle cramping, and I did opt to put his ibrutinib on hold. On 02/14/2019 he was admitted to the hospital after presenting to the emergency room with chest pain. He was hypertensive, and his creatinine at increased to 3.2 mg/dL. He had a slightly elevated troponin, significance of which was uncertain. A nuclear stress test showed some olvin-infarct ischemia, but mild. He had cardiology consultation with Dr. Orellana, and medical management was recommended. At discharge his creatinine had come back down to 2.8 mg/dL. Metoprolol was added to his medication regimen. He was seen for a follow-up visit on 02/24/2019. At that point he was acutely ill with another sick spell , including nausea/vomiting and diarrhea. He was given IV hydration and symptomatic management. His ibrutinib remained on hold. As of his follow-up visit on 03/03/2019 he was feeling better, and at that point he restarted ibrutinib with a further dose reduction to 140 mg daily. As of his follow-up visit in December 2019 there has been some further decline in his lymphocyte count. His other blood counts remained adequate, and he continued the ibrutinib at 140 mg daily. On 01/08/2021 he was admitted to the hospital with COVID-19 virus pneumonia. He had a complicated clinical course, requiring 2 subsequent hospitalizations. He was discharged home on 01/29/2021. With the initial hospitalization, I had recommended that they stop his ibrutinib. His other medical illnesses include hypertension, hyperlipidemia, type 2 diabetes, and coronary artery disease. He also has chronic kidney disease which has progressed to stage IV. In October 2014 he was admitted to the hospital with complete heart block, and he underwent placement of a permanent pacemaker. INTERIM HISTORY: As of his visit on 02/12/2021 he was showing some recovery, and I opted to continue expectant management for the CLL. However, by April 2021 there had been a significant increase in his lymphocyte count. His restaging CT scans showed some mild mediastinal and hilar adenopathy and his spleen was noted to be larger. He was getting more fatigued, and at that point he proceed to third-line treatment with venetoclax in combination with rituximab. Due to his underlying chronic kidney disease and hyperuricemia, he was given pretreatment IV hydration and he was given an IV infusion of rasburicase prophylactically. On 05/30/2021 he began venetoclax at 25 mg daily. He was then able to escalate to 50 mg daily and subsequently to 100 mg daily. As of 06/25/2021 his treatment was put on hold due to a drop in the platelet count to 78,000. His hemoglobin at that point had increased to 10.3 g and his white blood cell count had decreased to 7100 with absolute neutrophil count 2000. On 07/02/2021 he restarted the venetoclax at 100 mg daily with his platelet count back up to 107,000. He stopped it 2 weeks later when he developed pretty severe pain and numbness in both shoulders and arms. After 3 days off treatment, he tried going back on it, but with the recurrence of the symptoms, and at that point he did stop taking it again. Patient presents today for follow-up. He states he has been feeling pretty good. His appetite is good. He denies fever, chills, night sweats. He denies sinus drainage or mouth sores. He has shortness of breath with activity. No cough. No chest pain. No GI problems. He does experience urinary urgency. He has pain in his bilateral lower extremities but that is improving. He became really bad while he was on the venetoclax 25 mg so he tried decreasing it to every other day but continued with joint and bone pain. So he discontinued the venetoclax and has been off of it now for 4 days. Review Of Symptoms:Review of Systems is not available for this patient. Past Medical History: Chronic kidney disease (stage III) Coronary artery disease Diabetes type II (Treated) Hyperlipidemia (Treated) Hypertension (Treated) Covid 19 in 2020 Leukemia in 2009 Anemia in 2009 Past Surgical History: Appendectomy Removal of benign growth - from left testicle Stent placement in 2017 Pacemaker placement in 2014 Bone marrow aspiration in 2009 Bone marrow biopsy in 2009 Angioplasty/Stent in 2005 Quadruple bypass in 2004 Allergies: Allopurinol, Iodine, and Levaquin. Medications: Aspirin 1 (81 mg) Tablet Oral daily Atorvastatin Calcium 1 Tablet (of 40 mg) Oral daily Cholecalciferol 1 (50 mcg) Tablet Oral daily Clopidogrel Bisulfate 1 Tablet (of 75 mg) Oral daily Correctol Extra Gentle 1 Capsule (of 100 mg) Oral b.i.d. PRN Finasteride 1 Tablet (of 5 mg) Oral daily Flonase 1 (50 mcg/act) Suspension Nasal daily Glucosamine Chond Cmp Advanced 1 Tablet Oral daily Isosorbide Mononitrate ER 1 Tablet (of 60 mg) Tablet SR 24 HR Oral daily Lantus 15 Units (of 100 Units/mL) Subcutaneous daily NIFEdipine ER 1 Tablet (of 30 mg) Tablet SR 24 HR Oral daily Nitroglycerin Tablet, sublingual Sublingual PRN Nitroglycerin Tablet, sublingual Sublingual PRN NovoLOG (100 Units/mL) Subcutaneous Take as Directed Sodium Bicarbonate 1 Tablet Oral q 8 hours Tamsulosin HCl 1 Capsule Oral daily Tylenol 2 (325 mg) Tablet Oral q 4 hours PRN Family History: Mr. Renae's mother at age 73: medical history includes diabetes and Heart disease. Mr. Renae's father at age 59: suicide. Mr. Renae's maternal grandmother is : medical history includes diabetes. His paternal grandmother is : medical history includes diabetes. Mr. Renae has 1 brother with an unknown alive status: medical history includes Heart disease. Social History: Mr. Renae is and he is retired. Mr. Renae no longer smokes. He drinks occasionally. He has indicated exposure to the following products: cigarettes. Physical Examination: Performed on Oct 17, 2021 14:35: Height - 71.00 in, Weight - 251.6 lbs (HIGH), BSA - 2.32 sq.m, BMI - 35.09 (HIGH), Temperature - 97.4 F (LOW), Pulse - 98 /min, Respiration - 17 /min, BP - 133/67 mm(hg), O2 Sat - 95 % (LOW), Pain - 6, and Fatigue - 0. Performance Status: 1 - No physically strenuous activity, but ambulatory and able to carry out light or sedentary work (e.g. office work, light house work). (ECOG) Constitutional Alert, cooperative, oriented. Mood and affect appropriate. Appears close to chronological age. Well nourished. Well developed. Head Normocephalic; no scars. Respiratory Lungs are clear to auscultation without rhonchi or wheezing. Cardiovascular Regular rate and rhythm of heart without murmurs, gallops or rubs. Abdomen Non-tender, non-distended, no masses, ascites or hepatosplenomegaly. Good bowel sounds. No guarding or rebound tenderness. Musculoskeletal No tenderness or swelling, normal range of motion without obvious weakness. Psychiatric Alert and oriented times three. Coherent speech. Verbalizes understanding of our discussions today. Laboratory: Test performed on Oct 17, 2021 12:49 LDH (Total) 239 U/L Uric Acid 8.2 mg/dL Potassium 5.2 mmol/L BUN 63 mg/dL Creatinine 2.9 mg/dL Cr Clearance (Est) 34.1600 mL/min Glucose 132 mg/dL Osmolality - Calculated 308 mOsm/kg WBC 9.5 10 3/uL RBC 3.91 10 6/uL HGB 11.4 g/dL HCT 36.0 % MCV 92.1 fl MCH 29.2 pg MCHC 31.7 g/dL RDW 14.0 % Platelet Count 88 10 3/cmm MPV 9.1 fL Neutrophils 2.88 10 3/uL Lymphocytes 5.9 10 3/uL Monocytes 0.4 10 3/uL Eosinophils 0.3 10 3/uL Basophils 0.0 10 3/uL Neutrophil % 30.3 % Lymphocyte % 61.8 % Monocyte % 4.3 % Eosinophil % 3.0 % Basophils % 0.2 % NRBC % 0 % Test performed on Sep 20, 2021 09:03 Sodium 136 mmol/L Chloride 104 mmol/L CO2 21 mmol/L Anion Gap 16.5 Calcium 9.5 mg/dL Protein, Total 6.1 g/dL Albumin 4.3 g/dL Globulin 1.8 g/dL Bilirubin, Total 0.4 mg/dL ALT (SGPT) 11 U/L AST (SGOT) 11 U/L Alkaline Phosphatase 76 IU/L CBC Slide Review Slide Review Perform SLIDE REVIEW AGREES WITH AUTOMATED RESULTS ST Test performed on Aug 21, 2021 14:45 Manual Segs % 75 % Manual Bands % 1.0 % Manual Lymphs % 18 % Atypical Lymphs % 0.0 % Total Cells Counted 100 Manual Monos % 0.0 % Manual Eos % 2 % Manual Basos % 0.0 % Metamyelocytes % 4.0 % Platelet Estimate Decreased Manual Segs Abs 4.3 10/cmm Manual Bands Abs 0.1 10 3/cmm Manual Neutrophils Abs 4.3 10 3/cmm Manual Lymphocytes Abs 1.0 10 3/cmm Manual Monocytes Abs 0.0 10 3/cmm Manual Eosinophils Abs 0.1 10 3/cmm Manual Basophils Abs 0.0 10 3/cmm Test performed on Aug 07, 2021 14:26 Manual Diff DT Test performed on Jul 31, 2021 13:45 Magnesium 2.1 mg/dL Test performed on Jun 11, 2021 12:56 NRBCs 0 /100 WBC Test performed on May 28, 2021 13:25 Blasts % 14 % Smudge Cells 2+ Anisocytosis Trace Poikilocytosis Trace Impression: 1. Chronic lymphocytic leukemia, initially diagnosed in February 2010. 2. Hypertension. 3. Hyperlipidemia. 4. Type II diabetes. 5. Chronic kidney disease. 6. Coronary artery disease. 7. History of complete heart block, requiring placement of permanent pacemaker. Plan: Patient with chronic lymphocytic leukemia, initially diagnosed in February 2010. He was initially managed with observation, as he had multiple other medical illnesses and he desired conservative management. During his follow-up he continued to have wide fluctuations in his lymphocyte count, for which no rational explanation was found. He also had remained mildly anemic. His platelet counts had varied between low normal to mildly decreased. On several occasions his LDH level had been significantly elevated, but it was never consistently elevated. As of July 2015 he began treatment with bendamustine/Rituxan, as it appeared that his disease had become symptomatic. He had a mild infusion reaction with the initial attempt at the Rituxan infusion, and it was abandoned. He then returned on 08/24/2015 and with steroid premedication he was able to complete cycle 1 of bendamustine/Rituxan with no acute toxicity. He had subsequently presented with generalized erythroderma, consistent with hypersensitivity reaction to his treatment. The skin eruption subsequently resolved. It was never determined with certainty whether the reaction was to Rituxan, to bendamustine, or to allopurinol. However, he did have a very good response to the treatment. As of his follow-up visit on 11/03/2017 he has been showing a gradual increase in his lymphocyte count, and it appeared that his disease was getting symptomatic again. He ulltimately started treatment with ibrutinib 420 mg daily on 02/12/2018. He had a good clinical response, and he initially tolerated it well. However, as of his follow-up visit on 09/14/2018 his ibrutinib was put on hold due to multiple complaints including fatigue, excessive somnolence, and confusion. During subsequent follow-up his blood counts had remained adequately controlled, though he continued to have significant fatigue. On 12/03/2018 he restarted treatment with ibrutinib at a reduced dosage of 280 mg daily. At day 15 he was given an infusion of rasburicase due to an increase in his uric acid level. During further follow-up there was an increase in his lymphocyte count, as expected, but he had no further sick spells or other obvious CLL related symptoms. At his follow-up visit on 01/27/2019 he complained of severe muscle cramping, and his ibrutinib was put on hold. As of 03/03/2019 he restarted ibrutinib with a further dose reduction to 140 mg daily. During follow-up there was an increase in his lymphocyte count, as expected, but that subsequently stabilized, and during further follow-up the lymphocyte count began to gradually decline. He remained mildly anemic and he continued to have mild thrombocytopenia. As of his follow-up visit in December 2019 his overall clinical status appeared stable, and he continued the ibrutinib at 140 mg daily. On 01/08/2021 he was admitted to the hospital with COVID-19 virus pneumonia. He had a complicated clinical course, but he did show gradual recovery. However, by April 2021 he had become more fatigued. At that point there was a significant increase in his lymphocyte count and restaging CT scans showed an increase in his spleen size. With those findings, he was recommended to proceed with third line treatment with venetoclax in combination with rituximab. He began his venetoclax dose escalation on 05/30/2021. Due to underlying chronic kidney disease and hyperuricemia, he was given pretreatment IV hydration and an infusion of rasburicase prophylactically. He had some transient low-grade fever during the first week of treatment. He otherwise tolerated it well, and he was then able to increase the venetoclax dosage to 50 mg daily and subsequently to 100 mg daily. As of 06/25/2021 his treatment was put on hold due to a drop in his platelet count to 78,000. On 09/20/2021 patient was restarted on venetoclax at 25 mg. He was unable to tolerate it due to bone and joint pain. Patient quit taking it 4 days ago. His joint pain is starting to improve although he continues to have pain in his bilateral lower extremities. He is leaving for vacation this weekend and will return in 1 week. He will return to the clinic in 2 weeks with CBC CMP and LDH and at that time we will determine further course of treatment. Retrying ibrutinib is under consideration. Signed By: Alia Samayoa NLandy. <<Signature on File>>
== END 2021-10-20 23:59 | disposition home or self-care (01) ==
LOC: ONCMED 12:13
PROVIDERS: Internal Medicine; Nurse Practitioner Family; PCP Family Medicine; Visit Provider Internal Medicine Medical Oncology
DX: C91.10 Chronic lymphocytic leukemia of B-cell type not having achieved remission (principal); D64.9 Anemia, unspecified; D69.6 Thrombocytopenia, unspecified; R53.83 Other fatigue; R40.0 Somnolence; R41.0 Disorientation, unspecified; N18.9 Chronic kidney disease, unspecified; E79.0 Hyperuricemia without signs of inflammatory arthritis and tophaceous disease; M79.605 Pain in left leg; M79.604 Pain in right leg; Z79.2 Long term (current) use of antibiotics; Z79.899 Other long term (current) drug therapy; Z92.21 Personal history of antineoplastic chemotherapy
CPT/HCPCS: 36415; 80048; 80053; 81003; 82040; 82310; 82570; 82728; 83540; 83550; 83615; 83970; 84100; 84156; 84550; 85025; 99215

== ENCOUNTER → 2021-10-18 09:32 | Outpatient (BNVA) | payer MEDICARE, OTHER, SELFPAY | PROVIDERS: PCP Family Medicine; Visit Provider Urology | DX: N40.1 Benign prostatic hyperplasia with lower urinary tract symptoms (principal); N28.1 Cyst of kidney, acquired; R35.1 Nocturia | CPT/HCPCS: 81003 ==

== ENCOUNTER 2021-10-29 12:00 | Oncology outpatient (recurring) (ONCR) | payer MEDICARE, OTHER, SELFPAY ==
[2021-10-29 13:08] LABS: Basophils % 0.3 %; Eosinophils # 0.4 10^3/uL (0.0-0.8); Eosinophils % 3.8 %; Hematocrit 35.6 % (42.0-52.0); Hemoglobin 11.6 g/dL (11.7-16.6); Lymphocytes # 5.7 10^3/uL (0.8-4.8); Lymphocytes % 62.2 %; Mean Corpuscular HGB Conc 32.6 g/dL (30.0-36.0); Mean Corpuscular Hemoglobin 29.4 pg (28.0-34.0); Mean Corpuscular Volume 90.4 fl (80-94); Mean Platelet Volume 9.8 fL (7.4-10.4); Monocytes # 0.4 10^3/uL (0.2-0.9); Monocytes % 4.1 %; Neutrophils # 2.67 10^3/uL (1.8-7.7); Neutrophils % 29.4 %; Nucleated Red Blood Cells % 0 %; Platelet Count 105 10^3/cmm (130-400); Red Blood Count 3.94 10^6/uL (4.1-5.3); Red Cell Distribution Width 13.5 % (12.1-15.1); White Blood Count 9.1 10^3/uL (4.0-10.0)
[2021-10-29 13:38] LABS: Alanine Aminotransferase 12 U/L (0-41); Albumin Level 4.4 g/dL (3.5-5.2); Alkaline Phosphatase 73 IU/L (40-130); Anion Gap 16.7 (5-19); Aspartate Amino Transferase 13 U/L (0-40); Blood Urea Nitrogen 44 mg/dL (8-23); Calcium 9.8 mg/dL (8.5-10.5); Carbon Dioxide 26 mmol/L (22-29); Chloride 104 mmol/L (98-107); Globulin 1.9 g/dL (1.3-4.6); Glucose 167 mg/dL (65-115); Osmolality Calculated 309 mOsm/kg (285-295); Potassium 4.7 mmol/L (3.5-5.1); Sodium 142 mmol/L (136-145); Total Bilirubin 0.5 mg/dL (0.15-1.2); Total Protein 6.3 g/dL (6.6-8.7)
[2021-10-29 15:35] LABS: Erythrocyte Sedimentation Rate 3 mm/hr (0-10)
[2021-10-29 16:40] LABS: Lactate Dehydrogenase > 243 U/L (135-225)
== END 2021-11-20 23:59 | disposition home or self-care (01) ==
PROVIDERS: Nurse Practitioner Family; PCP Family Medicine; Visit Provider Internal Medicine Medical Oncology
DX: C91.10 Chronic lymphocytic leukemia of B-cell type not having achieved remission (principal); D64.9 Anemia, unspecified; D69.1 Qualitative platelet defects; Z86.16 Personal history of COVID-19; M25.561 Pain in right knee; M25.562 Pain in left knee; Z79.899 Other long term (current) drug therapy; Z92.25 Personal history of immunosuppression therapy
CPT/HCPCS: 80053; 83615; 84550; 85025; 85651; 99214; 99999

== ENCOUNTER → 2021-11-05 14:01 | Outpatient (BNVA) | payer MEDICARE, OTHER, SELFPAY | PROVIDERS: PCP Family Medicine; Visit Provider Internal Medicine | DX: I25.10 Atherosclerotic heart disease of native coronary artery without angina pectoris (principal); Z95.1 Presence of aortocoronary bypass graft; I12.9 Hypertensive chronic kidney disease with stage 1 through stage 4 chronic kidney disease, or unspecified chronic kidney disease; E13.22 Other specified diabetes mellitus with diabetic chronic kidney disease; N18.32 Chronic kidney disease, stage 3b; Z79.4 Long term (current) use of insulin; Z98.61 Coronary angioplasty status; Z95.0 Presence of cardiac pacemaker; Z87.891 Personal history of nicotine dependence | CPT/HCPCS: 99214 ==

== ENCOUNTER → 2021-12-07 08:36 | Outpatient (BNVA) | payer MEDICARE, OTHER, SELFPAY | PROVIDERS: PCP Family Medicine | DX: Z45.010 Encounter for checking and testing of cardiac pacemaker pulse generator [battery] (principal) | CPT/HCPCS: 93280 ==

== ENCOUNTER 2021-12-14 10:15 | Oncology outpatient (recurring) (ONCR) | payer OTHER, SELFPAY ==
[2021-11-30] MEDS: sodium chloride 0.9% 1,000 ML 600 ML IV (09:45)
[2021-11-30] MEDS: ondansetron 2 mg/ML SDV 2 mL 8 MG IVP (09:47)
[2021-11-30 11:33] VITALS: BP 137/56; PULSE 80; RESP 16; TEMP 36.3; O2SAT 98
[2021-12-14 10:28] LABS: Basophils # 0.1 10^3/uL (0.0-0.1); Basophils % 0.3 %; Eosinophils # 0.6 10^3/uL (0.0-0.8); Eosinophils % 2.4 %; Hematocrit 35.2 % (42.0-52.0); Hemoglobin 11.5 g/dL (11.7-16.6); Lymphocytes # 17.8 10^3/uL (0.8-4.8); Lymphocytes % 75.1 %; Mean Corpuscular HGB Conc 32.7 g/dL (30.0-36.0); Mean Corpuscular Volume 88.7 fl (80-94); Mean Platelet Volume 9.9 fL (7.4-10.4); Monocytes # 1.3 10^3/uL (0.2-0.9); Monocytes % 5.5 %; Neutrophils # 3.92 10^3/uL (1.8-7.7); Neutrophils % 16.4 %; Nucleated Red Blood Cells % 0 %; Platelet Count 99 10^3/cmm (130-400); Red Blood Count 3.97 10^6/uL (4.1-5.3); Red Cell Distribution Width 14.8 % (12.1-15.1); White Blood Count 23.7 10^3/uL (4.0-10.0)
[2021-12-14 10:54] LABS: Alanine Aminotransferase 13 U/L (0-41); Albumin Level 4.3 g/dL (3.5-5.2); Alkaline Phosphatase 96 IU/L (40-130); Anion Gap 17.3 (5-19); Aspartate Amino Transferase 13 U/L (0-40); Blood Urea Nitrogen 53 mg/dL (8-23); Calcium 9.3 mg/dL (8.5-10.5); Carbon Dioxide 22 mmol/L (22-29); Chloride 104 mmol/L (98-107); Globulin 2.3 g/dL (1.3-4.6); Glucose 199 mg/dL (65-115); Lactate Dehydrogenase 307 U/L (135-225); Osmolality Calculated 306 mOsm/kg (285-295); Potassium 5.3 mmol/L (3.5-5.1); Sodium 138 mmol/L (136-145); Total Bilirubin 0.6 mg/dL (0.15-1.2); Total Protein 6.6 g/dL (6.6-8.7); Uric Acid 8.4 mg/dL (3.4-7.0)
[2021-12-14 10:55] LABS: Slide Review Slide Review Perform
== END 2021-12-20 23:59 | disposition home or self-care (01) ==
PROVIDERS: PCP Family Medicine; Visit Provider Internal Medicine Medical Oncology
DX: C91.10 Chronic lymphocytic leukemia of B-cell type not having achieved remission (principal); E11.22 Type 2 diabetes mellitus with diabetic chronic kidney disease; N18.9 Chronic kidney disease, unspecified; I12.9 Hypertensive chronic kidney disease with stage 1 through stage 4 chronic kidney disease, or unspecified chronic kidney disease; E79.0 Hyperuricemia without signs of inflammatory arthritis and tophaceous disease; R19.7 Diarrhea, unspecified; R11.2 Nausea with vomiting, unspecified; Z79.899 Other long term (current) drug therapy; Z79.84 Long term (current) use of oral hypoglycemic drugs; Z87.891 Personal history of nicotine dependence
CPT/HCPCS: 36415; 80053; 83615; 84550; 85025; 87493; 96360; 96361; 99215; J2405; J7030

== ENCOUNTER 2021-12-31 13:00 | Oncology outpatient (recurring) (ONCR) | payer OTHER, SELFPAY ==
[2021-12-31 13:52] LABS: Basophils % 0.2 %; Eosinophils # 0.3 10^3/uL (0.0-0.8); Eosinophils % 1.5 %; Hematocrit 33.2 % (42.0-52.0); Hemoglobin 10.4 g/dL (11.7-16.6); Lymphocytes # 16.4 10^3/uL (0.8-4.8); Lymphocytes % 83.3 %; Mean Corpuscular HGB Conc 31.3 g/dL (30.0-36.0); Mean Corpuscular Hemoglobin 29.1 pg (28.0-34.0); Mean Platelet Volume 9.9 fL (7.4-10.4); Monocytes # 0.3 10^3/uL (0.2-0.9); Monocytes % 1.5 %; Neutrophils # 2.64 10^3/uL (1.8-7.7); Neutrophils % 13.3 %; Nucleated Red Blood Cells % 0 %; Platelet Count 113 10^3/cmm (130-400); Red Blood Count 3.57 10^6/uL (4.1-5.3); Red Cell Distribution Width 14.7 % (12.1-15.1); White Blood Count 19.7 10^3/uL (4.0-10.0)
[2021-12-31 14:22] LABS: Alanine Aminotransferase 8 U/L (0-41); Albumin Level 4.4 g/dL (3.5-5.2); Alkaline Phosphatase 71 IU/L (40-130); Anion Gap 17.8 (5-19); Aspartate Amino Transferase 9 U/L (0-40); Blood Urea Nitrogen 59 mg/dL (8-23); Carbon Dioxide 21 mmol/L (22-29); Chloride 105 mmol/L (98-107); Globulin 2.3 g/dL (1.3-4.6); Glucose 181 mg/dL (65-115); Lactate Dehydrogenase 221 U/L (135-225); Osmolality Calculated 307 mOsm/kg (285-295); Potassium 5.8 mmol/L (3.5-5.1); Sodium 138 mmol/L (136-145); Total Bilirubin 0.6 mg/dL (0.15-1.2); Total Protein 6.7 g/dL (6.6-8.7)
== END 2021-12-31 23:59 | disposition home or self-care (01) ==
PROVIDERS: Nurse Practitioner Family; PCP Family Medicine; Visit Provider Internal Medicine Medical Oncology
DX: C91.10 Chronic lymphocytic leukemia of B-cell type not having achieved remission (principal); N28.9 Disorder of kidney and ureter, unspecified; Z79.899 Other long term (current) drug therapy; Z92.21 Personal history of antineoplastic chemotherapy; Z92.25 Personal history of immunosuppression therapy
CPT/HCPCS: 80053; 83615; 85025; 99214

== ENCOUNTER → 2022-01-07 12:52 | Outpatient (BNVA) | payer MEDICARE, OTHER, SELFPAY | PROVIDERS: PCP Family Medicine; Referring Provider Internal Medicine Medical Oncology; Visit Provider Specialist | DX: M17.0 Bilateral primary osteoarthritis of knee (principal); M25.561 Pain in right knee; M25.562 Pain in left knee | CPT/HCPCS: 73560; 73565; 99203; 99204 ==

== ENCOUNTER 2022-01-25 09:36 | Outpatient (CLI) | payer MEDICARE, OTHER, SELFPAY | END 2022-01-25 09:37 | disposition home or self-care (01) | PROVIDERS: PCP Family Medicine; Visit Provider Nurse Practitioner Family | DX: A04.72 Enterocolitis due to Clostridium difficile, not specified as recurrent (principal); R19.7 Diarrhea, unspecified | CPT/HCPCS: 87493 ==

== ENCOUNTER 2022-01-30 08:10 | Oncology outpatient (recurring) (ONCR) | payer MEDICARE, OTHER, SELFPAY ==
[2022-01-30 08:53] LABS: Basophils % 0.2 %; Eosinophils # 0.3 10^3/uL (0.0-0.8); Eosinophils % 2.4 %; Hematocrit 34.5 % (42.0-52.0); Lymphocytes # 9.6 10^3/uL (0.8-4.8); Mean Corpuscular HGB Conc 31.9 g/dL (30.0-36.0); Mean Corpuscular Hemoglobin 30.5 pg (28.0-34.0); Mean Corpuscular Volume 95.6 fl (80-94); Mean Platelet Volume 10.8 fL (7.4-10.4); Monocytes # 0.4 10^3/uL (0.2-0.9); Monocytes % 2.9 %; Neutrophils # 1.98 10^3/uL (1.8-7.7); Neutrophils % 16.3 %; Nucleated Red Blood Cells % 0 %; Platelet Count 83 10^3/cmm (130-400); Red Blood Count 3.61 10^6/uL (4.1-5.3); Red Cell Distribution Width 15.3 % (12.1-15.1); White Blood Count 12.3 10^3/uL (4.0-10.0)
[2022-01-30 09:20] LABS: Estmated Average Glucose 143; Hemoglobin A1C 6.6 % (4.0-6.0)
[2022-01-30 09:28] LABS: Alanine Aminotransferase 10 U/L (0-41); Albumin Level 4.4 g/dL (3.5-5.2); Alkaline Phosphatase 66 IU/L (40-130); Anion Gap 16.1 (5-19); Aspartate Amino Transferase 11 U/L (0-40); Blood Urea Nitrogen 46 mg/dL (8-23); Calcium 9.6 mg/dL (8.5-10.5); Carbon Dioxide 25 mmol/L (22-29); Chloride 108 mmol/L (98-107); Globulin 2.1 g/dL (1.3-4.6); Glucose 118 mg/dL (65-115); Lactate Dehydrogenase 205 U/L (135-225); Osmolality Calculated 311 mOsm/kg (285-295); Potassium 5.1 mmol/L (3.5-5.1); Sodium 144 mmol/L (136-145); Total Bilirubin 0.5 mg/dL (0.15-1.2); Total Protein 6.5 g/dL (6.6-8.7)
== END 2022-02-20 23:59 | disposition home or self-care (01) ==
LOC: ONCMED 08:11
PROVIDERS: Nurse Practitioner; PCP Family Medicine; Visit Provider Internal Medicine Medical Oncology
DX: C91.10 Chronic lymphocytic leukemia of B-cell type not having achieved remission (principal); E11.22 Type 2 diabetes mellitus with diabetic chronic kidney disease; N18.32 Chronic kidney disease, stage 3b; Z79.4 Long term (current) use of insulin
CPT/HCPCS: 80053; 83036; 83615; 85025

== ENCOUNTER 2022-02-11 10:09 | Outpatient (CLI) | payer MEDICARE, OTHER, SELFPAY ==
[2022-02-11 11:05] LABS: Blood Urea Nitrogen 49 mg/dL (8-23); Calcium 9.4 mg/dL (8.5-10.5); Carbon Dioxide 24 mmol/L (22-29); Chloride 107 mmol/L (98-107); Glucose 134 mg/dL (65-115); Osmolality Calculated 307 mOsm/kg (285-295); Sodium 141 mmol/L (136-145)
== END 2022-02-11 10:10 | disposition home or self-care (01) ==
PROVIDERS: PCP Family Medicine; Visit Provider Internal Medicine
DX: N18.4 Chronic kidney disease, stage 4 (severe) (principal); E87.5 Hyperkalemia; Z79.899 Other long term (current) drug therapy
CPT/HCPCS: 80048

== ENCOUNTER 2022-02-21 13:54 | Oncology outpatient (recurring) (ONCR) | payer MEDICARE, OTHER, SELFPAY ==
[2022-02-21 14:45] LABS: Basophils % 0.2 %; Eosinophils # 0.3 10^3/uL (0.0-0.8); Eosinophils % 2.2 %; Hematocrit 35.3 % (42.0-52.0); Lymphocytes # 11.4 10^3/uL (0.8-4.8); Lymphocytes % 76.5 %; Mean Corpuscular HGB Conc 31.2 g/dL (30.0-36.0); Mean Corpuscular Hemoglobin 30.5 pg (28.0-34.0); Mean Corpuscular Volume 97.8 fl (80-94); Monocytes # 0.3 10^3/uL (0.2-0.9); Monocytes % 2.3 %; Neutrophils # 2.75 10^3/uL (1.8-7.7); Neutrophils % 18.5 %; Nucleated Red Blood Cells % 0.1 %; Platelet Count 100 10^3/cmm (130-400); Red Blood Count 3.61 10^6/uL (4.1-5.3); Red Cell Distribution Width 14.8 % (12.1-15.1); White Blood Count 14.9 10^3/uL (4.0-10.0)
[2022-02-21 15:01] LABS: Alanine Aminotransferase 9 U/L (0-41); Albumin Level 4.3 g/dL (3.5-5.2); Alkaline Phosphatase 66 U/L (40-130); Anion Gap 13.2 (5-19); Aspartate Amino Transferase 9 U/L (0-40); Blood Urea Nitrogen 47 mg/dL (8-23); Calcium 9.1 mg/dL (8.5-10.5); Carbon Dioxide 23 mmol/L (22-29); Chloride 105 mmol/L (98-107); Globulin 2.1 g/dL (1.3-4.6); Glucose 128 mg/dL (65-115); Lactate Dehydrogenase 197 U/L (135-225); Osmolality Calculated 296 mOsm/kg (285-295); Potassium 5.2 mmol/L (3.5-5.1); Sodium 136 mmol/L (136-145); Total Bilirubin 0.6 mg/dL (0.15-1.2); Total Protein 6.4 g/dL (6.6-8.7)
== END 2022-03-22 23:59 | disposition home or self-care (01) ==
PROVIDERS: PCP Family Medicine; Visit Provider Internal Medicine Medical Oncology
DX: C91.10 Chronic lymphocytic leukemia of B-cell type not having achieved remission (principal); E11.22 Type 2 diabetes mellitus with diabetic chronic kidney disease; N18.32 Chronic kidney disease, stage 3b; Z79.4 Long term (current) use of insulin; D64.9 Anemia, unspecified; Z79.899 Other long term (current) drug therapy; Z86.16 Personal history of COVID-19; Z92.25 Personal history of immunosuppression therapy; Z92.21 Personal history of antineoplastic chemotherapy
CPT/HCPCS: 80053; 83615; 85025; 99214

== ENCOUNTER 2022-04-05 09:16 | Oncology outpatient (recurring) (ONCR) | payer MEDICARE, OTHER, SELFPAY ==
[2022-04-05 10:03] LABS: Hematocrit 37.4 % (42.0-52.0); Mean Corpuscular HGB Conc 32.1 g/dL (30.0-36.0); Mean Corpuscular Hemoglobin 30.8 pg (28.0-34.0); Mean Corpuscular Volume 96.1 fl (80-94); Mean Platelet Volume 10.1 fL (7.4-10.4); Platelet Count 107 10^3/cmm (130-400); Red Blood Count 3.89 10^6/uL (4.1-5.3); Red Cell Distribution Width 13.6 % (12.1-15.1); White Blood Count 12.1 10^3/uL (4.0-10.0)
[2022-04-05 10:28] LABS: Absolute Eosinophils 0.2 10^3/cmm (0.0-0.7); Absolute Neutrophil 3.8 10^3/cmm (1.4-6.5); Absolute Segmented Neutrophil 3.8 10/cmm (1.6-7.1); Eosinophils 2 %; Lymphocytes 9 %; Lymphocytes Absolute 7.9 10^3/cmm (1.2-3.4); Monocytes Absolute 0.2 10^3/cmm (0.1-0.6); Platelet Estimate Decreased (Normal); Segmented Neutrophils 31 %; Total Cells Counted 100 (0-100)
== END 2022-04-22 23:59 | disposition home or self-care (01) ==
PROVIDERS: PCP Family Medicine; Visit Provider Internal Medicine Medical Oncology
DX: C91.10 Chronic lymphocytic leukemia of B-cell type not having achieved remission (principal)
CPT/HCPCS: 36415; 85007; 85025

== ENCOUNTER → 2022-04-24 12:54 | Outpatient (BNVA) | payer MEDICARE, OTHER, SELFPAY | PROVIDERS: PCP Family Medicine; Visit Provider Urology | DX: N40.1 Benign prostatic hyperplasia with lower urinary tract symptoms (principal) | CPT/HCPCS: 51741; 51798; 81003; 99213 ==

== ENCOUNTER 2022-04-25 16:13 | Outpatient (CLI) | payer MEDICARE, OTHER, SELFPAY ==
[2022-04-25 17:13] LABS: Basophils # 0.1 10^3/uL (0.0-0.1); Basophils % 0.3 %; Eosinophils # 0.3 10^3/uL (0.0-0.8); Eosinophils % 2.2 %; Hematocrit 36.9 % (42.0-52.0); Hemoglobin 11.7 g/dL (11.7-16.6); Lymphocytes % 68.1 %; Mean Corpuscular HGB Conc 31.7 g/dL (30.0-36.0); Mean Corpuscular Hemoglobin 29.6 pg (28.0-34.0); Mean Corpuscular Volume 93.4 fl (80-94); Mean Platelet Volume 10.7 fL (7.4-10.4); Monocytes # 0.4 10^3/uL (0.2-0.9); Monocytes % 2.7 %; Neutrophils # 3.86 10^3/uL (1.8-7.7); Neutrophils % 26.4 %; Nucleated Red Blood Cells % 0 %; Platelet Count 86 10^3/cmm (130-400); Red Blood Count 3.95 10^6/uL (4.1-5.3); Red Cell Distribution Width 13.3 % (12.1-15.1); White Blood Count 14.6 10^3/uL (4.0-10.0)
[2022-04-25 17:34] LABS: Slide Review Slide Review Perform
== END 2022-04-25 16:14 | disposition home or self-care (01) ==
LOC: LAB 16:18
PROVIDERS: Visit Provider Internal Medicine Medical Oncology
DX: C91.10 Chronic lymphocytic leukemia of B-cell type not having achieved remission (principal)
CPT/HCPCS: 85025

== ENCOUNTER 2022-05-13 10:33 | Outpatient (CLI) | payer MEDICARE, OTHER, SELFPAY ==
[2022-05-13 11:22] LABS: Basophils % 0.4 %; Eosinophils # 0.3 10^3/uL (0.0-0.8); Eosinophils % 3.1 %; Hematocrit 37.7 % (42.0-52.0); Hemoglobin 11.8 g/dL (11.7-16.6); Lymphocytes # 7.8 10^3/uL (0.8-4.8); Lymphocytes % 70.1 %; Mean Corpuscular HGB Conc 31.3 g/dL (30.0-36.0); Mean Corpuscular Volume 95.9 fl (80-94); Mean Platelet Volume 10.5 fL (7.4-10.4); Monocytes # 0.4 10^3/uL (0.2-0.9); Monocytes % 3.3 %; Neutrophils # 2.55 10^3/uL (1.8-7.7); Neutrophils % 22.9 %; Nucleated Red Blood Cells % 0 %; Platelet Count 94 10^3/cmm (130-400); Red Blood Count 3.93 10^6/uL (4.1-5.3); Red Cell Distribution Width 13.5 % (12.1-15.1); White Blood Count 11.1 10^3/uL (4.0-10.0)
[2022-05-13 11:50] LABS: Urine Creatinine 128 mg/dL (39-259)
[2022-05-13 11:52] LABS: Alanine Aminotransferase 11 U/L (0-41); Albumin Level 3.9 g/dL (3.5-5.2); Alkaline Phosphatase 74 U/L (40-130); Aspartate Amino Transferase 10 U/L (0-40); Blood Urea Nitrogen 42 mg/dL (8-23); Calcium 9.5 mg/dL (8.5-10.5); Carbon Dioxide 23 mmol/L (22-29); Chloride 105 mmol/L (98-107); Globulin 2.5 g/dL (1.3-4.6); Glucose 126 mg/dL (65-115); Lactate Dehydrogenase 207 U/L (135-225); Osmolality Calculated 300 mOsm/kg (285-295); Sodium 139 mmol/L (136-145); Total Bilirubin 0.6 mg/dL (0.15-1.2); Total Protein 6.4 g/dL (6.6-8.7)
[2022-05-13 11:53] LABS: Ferritin 46 ng/mL (30-400); Iron 63 ug/dL (59-158); Percent Saturation 27.8 % (20-50); Phosphorus 3.8 mg/dL (2.5-4.5); Total Iron Binding Capacity 226 mcg/dl; Unsaturated Iron Binding 163 ug/dL (112-347); Uric Acid 8.4 mg/dL (3.4-7.0)
[2022-05-13 11:55] LABS: Calcium 9.5 mg/dL (8.5-10.5)
[2022-05-13 11:56] LABS: Total Protein, Random Urine 116.3 mg/dL (0.0-20.0)
[2022-05-13 11:57] LABS: Parathyroid Hormone 54.1 pg/mL (15-65)
[2022-05-13 12:09] LABS: Add Urine Culture? No; Add Urine Microscopic? YES; Bilirubin Urine Neg (Negative); Blood Urine 2+ (Negative); Glucose Urine UA Norm (Normal); Ketones Urine Negative (Negative); Leukocyte Esterase Urine Negative (Negative); Nitrate Urine Negative (Negative); Protein Urine 2+ (Negative); Urine Appearance Clear (CLEAR); Urine Color Yellow (Yellow); Urobilinogen Urine Norm (Negative); pH Urine 5 (5-7)
== END 2022-05-13 10:34 | disposition home or self-care (01) ==
LOC: LAB 10:36
PROVIDERS: Internal Medicine Medical Oncology; Visit Provider Internal Medicine
DX: E87.5 Hyperkalemia (principal); N18.4 Chronic kidney disease, stage 4 (severe); E79.0 Hyperuricemia without signs of inflammatory arthritis and tophaceous disease; D63.1 Anemia in chronic kidney disease; R80.0 Isolated proteinuria
CPT/HCPCS: 36415; 80053; 81001; 82310; 82570; 82728; 83540; 83550; 83615; 83970; 84100; 84156; 84550; 85025

== ENCOUNTER → 2022-05-21 12:54 | Outpatient (BNVA) | payer OTHER, SELFPAY | PROVIDERS: PCP Family Medicine; Visit Provider Internal Medicine | DX: I25.10 Atherosclerotic heart disease of native coronary artery without angina pectoris (principal); Z95.1 Presence of aortocoronary bypass graft; I12.9 Hypertensive chronic kidney disease with stage 1 through stage 4 chronic kidney disease, or unspecified chronic kidney disease; E11.22 Type 2 diabetes mellitus with diabetic chronic kidney disease; N18.32 Chronic kidney disease, stage 3b; Z79.4 Long term (current) use of insulin; Z87.891 Personal history of nicotine dependence; Z98.61 Coronary angioplasty status; Z95.0 Presence of cardiac pacemaker; E78.5 Hyperlipidemia, unspecified; I65.23 Occlusion and stenosis of bilateral carotid arteries | CPT/HCPCS: 99213 ==

== ENCOUNTER 2022-07-16 14:53 | Oncology outpatient (recurring) (ONCR) | payer OTHER, SELFPAY ==
[2022-07-03 17:24] LABS: Basophils % 0.3 %; Eosinophils # 0.3 10^3/uL (0.0-0.8); Eosinophils % 1.9 %; Hematocrit 38.7 % (42.0-52.0); Hemoglobin 12.2 g/dL (11.7-16.6); Lymphocytes # 10.8 10^3/uL (0.8-4.8); Mean Corpuscular HGB Conc 31.5 g/dL (30.0-36.0); Mean Corpuscular Hemoglobin 29.6 pg (28.0-34.0); Mean Corpuscular Volume 93.9 fl (80-94); Mean Platelet Volume 9.9 fL (7.4-10.4); Monocytes # 0.4 10^3/uL (0.2-0.9); Monocytes % 2.4 %; Neutrophils # 3.23 10^3/uL (1.8-7.7); Nucleated Red Blood Cells % 0 %; Platelet Count 103 10^3/cmm (130-400); Red Blood Count 4.12 10^6/uL (4.1-5.3); Red Cell Distribution Width 14.1 % (12.1-15.1); White Blood Count 14.7 10^3/uL (4.0-10.0)
[2022-07-03 18:36] LABS: Alanine Aminotransferase 10 U/L (0-41); Albumin Level 4.3 g/dL (3.5-5.2); Anion Gap 15.4 (5-19); Aspartate Amino Transferase 13 U/L (0-40); Blood Urea Nitrogen 52 mg/dL (8-23); Calcium 10.2 mg/dL (8.5-10.5); Carbon Dioxide 26 mmol/L (22-29); Chloride 103 mmol/L (98-107); Glucose 144 mg/dL (65-115); Iron 62 ug/dL (59-158); Lactate Dehydrogenase 231 U/L (135-225); Osmolality Calculated 307 mOsm/kg (285-295); Percent Saturation 28.5 % (20-50); Potassium 4.4 mmol/L (3.5-5.1); Sodium 140 mmol/L (136-145); Total Bilirubin 0.6 mg/dL (0.15-1.2); Total Iron Binding Capacity 217 mcg/dl; Total Protein 6.7 g/dL (6.6-8.7); Unsaturated Iron Binding 155 ug/dL (112-347); Uric Acid 9.1 mg/dL (3.4-7.0)
[2022-07-03 18:37] LABS: Alkaline Phosphatase 80 U/L (40-130); Globulin 2.4 g/dL (1.3-4.6); Thyroid Stimulating Hormone 3.17 uIU/mL (0.27-4.20); Vitamin B12 629 pg/mL (232-1245)
== END 2022-07-23 23:59 | disposition home or self-care (01) ==
PROVIDERS: PCP Family Medicine; Visit Provider Internal Medicine Medical Oncology
DX: C91.10 Chronic lymphocytic leukemia of B-cell type not having achieved remission (principal); M54.2 Cervicalgia; M25.511 Pain in right shoulder; M25.512 Pain in left shoulder; R71.8 Other abnormality of red blood cells; D69.6 Thrombocytopenia, unspecified; J01.90 Acute sinusitis, unspecified; J06.9 Acute upper respiratory infection, unspecified; Z79.2 Long term (current) use of antibiotics; Z79.899 Other long term (current) drug therapy; Z87.891 Personal history of nicotine dependence
CPT/HCPCS: 36415; 80053; 82607; 83540; 83550; 83615; 84443; 84550; 85025; 99213; 99214

== ENCOUNTER 2022-08-07 13:45 | Oncology outpatient (recurring) (ONCR) | payer OTHER, SELFPAY ==
[2022-07-30 12:53] LABS: Basophils % 0.3 %; Eosinophils # 0.4 10^3/uL (0.0-0.8); Eosinophils % 2.9 %; Hematocrit 38.6 % (42.0-52.0); Hemoglobin 12.3 g/dL (11.7-16.6); Lymphocytes # 8.9 10^3/uL (0.8-4.8); Lymphocytes % 69.1 %; Mean Corpuscular HGB Conc 31.9 g/dL (30.0-36.0); Mean Corpuscular Hemoglobin 30.4 pg (28.0-34.0); Mean Corpuscular Volume 95.3 fl (80-94); Mean Platelet Volume 10.1 fL (7.4-10.4); Monocytes # 0.4 10^3/uL (0.2-0.9); Monocytes % 2.8 %; Neutrophils # 3.19 10^3/uL (1.8-7.7); Neutrophils % 24.7 %; Nucleated Red Blood Cells % 0 %; Platelet Count 139 10^3/cmm (130-400); Red Blood Count 4.05 10^6/uL (4.1-5.3); White Blood Count 12.9 10^3/uL (4.0-10.0)
[2022-07-30 13:13] LABS: Alanine Aminotransferase 12 U/L (0-41); Albumin Level 4.3 g/dL (3.5-5.2); Alkaline Phosphatase 83 U/L (40-130); Anion Gap 15.5 (5-19); Aspartate Amino Transferase 16 U/L (0-40); Blood Urea Nitrogen 41 mg/dL (8-23); Carbon Dioxide 24 mmol/L (22-29); Chloride 106 mmol/L (98-107); Glucose 123 mg/dL (65-115); Immunoglobulin IGA 261 mg/dL (70-400); Immunoglobulin IGG 626 mg/dL (700-1600); Immunoglobulin IGM 48 mg/dL (40-230); Lactate Dehydrogenase 289 U/L (135-225); Osmolality Calculated 303 mOsm/kg (285-295); Potassium 4.5 mmol/L (3.5-5.1); Sodium 141 mmol/L (136-145); Total Bilirubin 0.6 mg/dL (0.15-1.2); Total Protein 6.3 g/dL (6.6-8.7)
== END 2022-08-20 23:59 | disposition home or self-care (01) ==
PROVIDERS: PCP Family Medicine; Visit Provider Internal Medicine Medical Oncology
DX: C91.10 Chronic lymphocytic leukemia of B-cell type not having achieved remission (principal)
CPT/HCPCS: 36415; 80053; 82784; 83615; 85025

== ENCOUNTER 2022-08-21 14:02 | Oncology outpatient (recurring) (ONCR) | payer OTHER, SELFPAY ==
[2022-08-21 15:43] LABS: Basophils # 0.1 10^3/uL (0.0-0.1); Basophils % 0.4 %; Eosinophils # 0.4 10^3/uL (0.0-0.8); Hematocrit 39.5 % (42.0-52.0); Hemoglobin 12.5 g/dL (11.7-16.6); Lymphocytes # 8.7 10^3/uL (0.8-4.8); Lymphocytes % 68.8 %; Mean Corpuscular HGB Conc 31.6 g/dL (30.0-36.0); Mean Corpuscular Hemoglobin 30.3 pg (28.0-34.0); Mean Corpuscular Volume 95.6 fl (80-94); Mean Platelet Volume 10.3 fL (7.4-10.4); Monocytes # 0.4 10^3/uL (0.2-0.9); Monocytes % 3.2 %; Neutrophils # 3.09 10^3/uL (1.8-7.7); Neutrophils % 24.4 %; Nucleated Red Blood Cells % 0 %; Platelet Count 113 10^3/cmm (130-400); Red Blood Count 4.13 10^6/uL (4.1-5.3); Red Cell Distribution Width 13.8 % (12.1-15.1); White Blood Count 12.7 10^3/uL (4.0-10.0)
[2022-08-21 16:09] LABS: Alanine Aminotransferase 9 U/L (0-41); Albumin Level 4.4 g/dL (3.5-5.2); Alkaline Phosphatase 74 U/L (40-130); Blood Urea Nitrogen 52 mg/dL (8-23); Calcium 9.4 mg/dL (8.5-10.5); Carbon Dioxide 24 mmol/L (22-29); Chloride 104 mmol/L (98-107); Globulin 2.1 g/dL (1.3-4.6); Glucose 178 mg/dL (65-115); Osmolality Calculated 308 mOsm/kg (285-295); Sodium 140 mmol/L (136-145); Total Bilirubin 0.6 mg/dL (0.15-1.2); Total Protein 6.5 g/dL (6.6-8.7)
[2022-08-21 16:16] LABS: Aspartate Amino Transferase 16 U/L (0-40); Calcium 9.4 mg/dL (8.5-10.5)
[2022-08-21 16:17] LABS: Lactate Dehydrogenase 291 U/L (135-225); Parathyroid Hormone 68.9 pg/mL (15-65)
[2022-08-21 16:40] LABS: Ferritin 58 ng/mL (30-400); Iron 88 ug/dL (59-158); Percent Saturation 37.7 % (20-50); Phosphorus 3.5 mg/dL (2.5-4.5); Total Iron Binding Capacity 233 mcg/dl; Unsaturated Iron Binding 145 ug/dL (112-347); Uric Acid 9.6 mg/dL (3.4-7.0)
[2022-08-21 17:02] LABS: Bilirubin Urine Neg (Negative); Blood Urine Neg (Negative); Glucose Urine UA Norm (Normal); Ketones Urine 1+ (Negative); Nitrate Urine Negative (Negative); Protein Urine 3+ (Negative); Urine Appearance Clear (CLEAR); Urine Color Yellow (Yellow); pH Urine 5 (5-7)
[2022-08-21 17:03] LABS: Add Urine Microscopic? YES; Leukocyte Esterase Urine Negative (Negative); RBC Urine 0-4 /hpf (0-2); Urobilinogen Urine Neg (Negative)
[2022-08-21 17:04] LABS: Bacteria Urine TRACE /hpf; Mucus Urine TRACE /hpf; WBC Urine 0-4 /hpf (0-5)
[2022-08-21 17:05] LABS: Amorphous Sediment Urine TRACE /hpf
[2022-08-21 17:07] LABS: Add Urine Culture? No
[2022-08-21 17:38] LABS: Urine Creatinine 207 mg/dL (39-259)
[2022-08-21 19:34] LABS: Total Protein, Random Urine 175.4 mg/dL (0.0-20.0)
== END 2022-09-20 23:59 | disposition home or self-care (01) ==
PROVIDERS: PCP Family Medicine; Referring Provider Internal Medicine; Visit Provider Internal Medicine Medical Oncology
DX: Z08 Encounter for follow-up examination after completed treatment for malignant neoplasm; Z85.6 Personal history of leukemia; Z92.25 Personal history of immunosuppression therapy; Z92.21 Personal history of antineoplastic chemotherapy; M25.571 Pain in right ankle and joints of right foot; Z87.891 Personal history of nicotine dependence
CPT/HCPCS: 36415; 80053; 81001; 82310; 82570; 82728; 83540; 83550; 83615; 83970; 84100; 84156; 84550; 85025; 99213

== ENCOUNTER → 2022-09-24 10:21 | Outpatient (BNVA) | payer OTHER, SELFPAY | PROVIDERS: PCP Family Medicine; Visit Provider Internal Medicine | DX: Z45.010 Encounter for checking and testing of cardiac pacemaker pulse generator [battery] (principal) | CPT/HCPCS: 93296 ==

== ENCOUNTER 2022-10-16 11:01 | Oncology outpatient (recurring) (ONCR) | payer OTHER, SELFPAY ==
[2022-10-16 11:30] LABS: Basophils # 0.1 10^3/uL (0.0-0.1); Basophils % 0.3 %; Eosinophils # 0.3 10^3/uL (0.0-0.8); Eosinophils % 0.9 %; Hematocrit 38.8 % (42.0-52.0); Hemoglobin 12.5 g/dL (11.7-16.6); Lymphocytes # 22.6 10^3/uL (0.8-4.8); Lymphocytes % 76.1 %; Mean Corpuscular HGB Conc 32.2 g/dL (30.0-36.0); Mean Corpuscular Volume 93.3 fl (80-94); Mean Platelet Volume 8.6 fL (7.4-10.4); Monocytes # 2.6 10^3/uL (0.2-0.9); Monocytes % 8.8 %; Neutrophils # 4.01 10^3/uL (1.8-7.7); Neutrophils % 13.6 %; Nucleated Red Blood Cells % 0 %; Platelet Count 170 10^3/cmm (130-400); Red Blood Count 4.16 10^6/uL (4.1-5.3); Red Cell Distribution Width 13.2 % (12.1-15.1); White Blood Count 29.7 10^3/uL (4.0-10.0)
[2022-10-16 11:45] LABS: Alanine Aminotransferase 14 U/L (0-41); Albumin Level 4.1 g/dL (3.5-5.2); Alkaline Phosphatase 100 U/L (40-130); Anion Gap 14.9 (5-19); Aspartate Amino Transferase 12 U/L (0-40); Blood Urea Nitrogen 42 mg/dL (8-23); Calcium 8.7 mg/dL (8.5-10.5); Carbon Dioxide 23 mmol/L (22-29); Chloride 105 mmol/L (98-107); Globulin 1.9 g/dL (1.3-4.6); Glucose 175 mg/dL (65-115); Lactate Dehydrogenase 344 U/L (135-225); Osmolality Calculated 301 mOsm/kg (285-295); Potassium 4.9 mmol/L (3.5-5.1); Sodium 138 mmol/L (136-145); Total Bilirubin 0.4 mg/dL (0.15-1.2)
[2022-10-16 12:10] LABS: Slide Review Slide Review Perform
--- NOTE | 2022-10-16 14:01 | XR_ITS ---
WS: [id number] Exam: XR foot RT 2V [id number] Date/Time of Exam: 10/16/2022 2:11 PM Reason For Exam: pain No fracture or dislocation. Mild DJD at the first MP joint. No soft tissue foreign bodies. Vascular c alcifications about the foot and ankle. XR/XR foot RT 2V [id number] IMPRESSION: 1. Minimal degenerative changes. No fracture or other significant finding.
--- NOTE | 2022-10-16 14:01 | XR_ITS ---
WS: [id number] Exam: XR ankle RT 2V [id number] Date/Time of Exam: 10/16/2022 2:11 PM Reason For Exam: pain No fracture or dislocation. The ankle mortise is well-maintained. Soft tissue vascular calcifications about the ankle and foot. XR/XR ankle RT 2V [id number] IMPRESSION: 1. No fracture or other significant finding.
[2022-10-16 14:38] LABS: Uric Acid 9.3 mg/dL (3.4-7.0)
[2022-10-16 14:55] LABS: Erythrocyte Sedimentation Rate 7 mm/hr (0-10)
== END 2022-10-20 23:59 | disposition home or self-care (01) ==
PROVIDERS: PCP Internal Medicine Medical Oncology; Referring Provider Internal Medicine; Visit Provider Internal Medicine Medical Oncology
DX: Z08 Encounter for follow-up examination after completed treatment for malignant neoplasm (principal); Z85.6 Personal history of leukemia; M25.571 Pain in right ankle and joints of right foot; Z92.21 Personal history of antineoplastic chemotherapy; Z92.25 Personal history of immunosuppression therapy; Z87.891 Personal history of nicotine dependence
CPT/HCPCS: 36415; 73600; 73620; 80053; 83615; 84550; 85025; 85651; 99214

== ENCOUNTER 2022-10-23 06:00 | Outpatient (RCR) | payer OTHER, SELFPAY | END 2022-11-20 23:59 | disposition home or self-care (01) | LOC: SPT 06:00 | PROVIDERS: PCP Internal Medicine Medical Oncology; Visit Provider Family Medicine | DX: M79.671 Pain in right foot (principal) | CPT/HCPCS: 97033; 97035; 97110; 97140; 97161 ==

== ENCOUNTER 2022-11-13 12:12 | Oncology outpatient (recurring) (ONCR) | payer OTHER, SELFPAY ==
[2022-11-13 12:54] LABS: Basophils # 0.1 10^3/uL (0.0-0.1); Basophils % 0.3 %; Eosinophils # 0.3 10^3/uL (0.0-0.8); Eosinophils % 1.5 %; Hematocrit 39.7 % (42.0-52.0); Hemoglobin 12.7 g/dL (11.7-16.6); Lymphocytes # 16.2 10^3/uL (0.8-4.8); Lymphocytes % 84.1 %; Mean Corpuscular Hemoglobin 29.5 pg (28.0-34.0); Mean Corpuscular Volume 92.3 fl (80-94); Mean Platelet Volume 8.9 fL (7.4-10.4); Monocytes # 0.3 10^3/uL (0.2-0.9); Monocytes % 1.6 %; Neutrophils # 2.36 10^3/uL (1.8-7.7); Neutrophils % 12.2 %; Nucleated Red Blood Cells % 0 %; Platelet Count 171 10^3/cmm (130-400); Red Cell Distribution Width 14.5 % (12.1-15.1); White Blood Count 19.2 10^3/uL (4.0-10.0)
[2022-11-13 13:11] LABS: Alanine Aminotransferase 9 U/L (0-41); Albumin Level 4.4 g/dL (3.5-5.2); Alkaline Phosphatase 86 U/L (40-130); Anion Gap 15.7 (5-19); Aspartate Amino Transferase 11 U/L (0-40); Blood Urea Nitrogen 51 mg/dL (8-23); Calcium 9.4 mg/dL (8.5-10.5); Carbon Dioxide 22 mmol/L (22-29); Chloride 106 mmol/L (98-107); Globulin 2.1 g/dL (1.3-4.6); Glucose 118 mg/dL (65-115); Lactate Dehydrogenase 238 U/L (135-225); Osmolality Calculated 303 mOsm/kg (285-295); Potassium 4.7 mmol/L (3.5-5.1); Sodium 139 mmol/L (136-145); Total Bilirubin 0.5 mg/dL (0.15-1.2); Total Protein 6.5 g/dL (6.6-8.7)
[2022-11-13 13:14] LABS: Slide Review Slide Review Perform
== END 2022-11-20 23:59 | disposition home or self-care (01) ==
PROVIDERS: PCP Internal Medicine Medical Oncology; Referring Provider Internal Medicine; Visit Provider Internal Medicine Medical Oncology
DX: Z08 Encounter for follow-up examination after completed treatment for malignant neoplasm (principal); Z85.6 Personal history of leukemia; M25.571 Pain in right ankle and joints of right foot; Z92.21 Personal history of antineoplastic chemotherapy; Z92.25 Personal history of immunosuppression therapy; Z87.891 Personal history of nicotine dependence
CPT/HCPCS: 36415; 80053; 83615; 85025; 99213

== ENCOUNTER → 2022-11-20 12:54 | Outpatient (BNVA) | payer MEDICARE, OTHER, SELFPAY | PROVIDERS: PCP Family Medicine; Visit Provider Internal Medicine | DX: I25.10 Atherosclerotic heart disease of native coronary artery without angina pectoris (principal); Z95.1 Presence of aortocoronary bypass graft; E11.22 Type 2 diabetes mellitus with diabetic chronic kidney disease; N18.32 Chronic kidney disease, stage 3b; Z79.4 Long term (current) use of insulin; Z98.61 Coronary angioplasty status; Z95.0 Presence of cardiac pacemaker; E78.5 Hyperlipidemia, unspecified; I65.23 Occlusion and stenosis of bilateral carotid arteries; I12.9 Hypertensive chronic kidney disease with stage 1 through stage 4 chronic kidney disease, or unspecified chronic kidney disease; Z87.891 Personal history of nicotine dependence | CPT/HCPCS: 99214 ==

== ENCOUNTER 2022-11-21 06:00 | Outpatient (RCR) | payer OTHER, SELFPAY | END 2022-12-19 23:59 | disposition home or self-care (01) | LOC: SPT 06:00 | PROVIDERS: PCP Family Medicine; Visit Provider Family Medicine | DX: M79.671 Pain in right foot (principal) | CPT/HCPCS: 97035; 97110; 97140 ==

== ENCOUNTER 2022-12-30 11:13 | Oncology outpatient (recurring) (ONCR) | payer OTHER, SELFPAY ==
[2022-12-30 11:52] VITALS: BP 119/62; PULSE 87; RESP 18; TEMP 36.9; O2SAT 97
[2022-12-30 12:05] LABS: Basophils # 0.1 10^3/uL (0.0-0.1); Basophils % 0.3 %; Eosinophils # 0.4 10^3/uL (0.0-0.8); Hematocrit 39.9 % (42.0-52.0); Hemoglobin 13.1 g/dL (11.7-16.6); Lymphocytes # 31.2 10^3/uL (0.8-4.8); Lymphocytes % 82.8 %; Mean Corpuscular HGB Conc 32.8 g/dL (30.0-36.0); Mean Corpuscular Hemoglobin 30.7 pg (28.0-34.0); Mean Corpuscular Volume 93.4 fl (80-94); Mean Platelet Volume 8.9 fL (7.4-10.4); Monocytes # 2.2 10^3/uL (0.2-0.9); Monocytes % 5.9 %; Neutrophils # 3.65 10^3/uL (1.8-7.7); Neutrophils % 9.7 %; Nucleated Red Blood Cells % 0 %; Platelet Count 171 10^3/cmm (130-400); Red Blood Count 4.27 10^6/uL (4.1-5.3); Red Cell Distribution Width 15.2 % (12.1-15.1)
[2022-12-30 12:17] LABS: Slide Review Slide Review Perform
[2022-12-30 12:18] LABS: White Blood Count 37.7 10^3/uL (4.0-10.0)
[2022-12-30 12:21] LABS: Alanine Aminotransferase 14 U/L (0-41); Albumin Level 4.1 g/dL (3.5-5.2); Alkaline Phosphatase 122 U/L (40-130); Aspartate Amino Transferase 17 U/L (0-40); Blood Urea Nitrogen 45 mg/dL (8-23); Calcium 9.3 mg/dL (8.5-10.5); Carbon Dioxide 24 mmol/L (22-29); Chloride 103 mmol/L (98-107); Globulin 2.3 g/dL (1.3-4.6); Glucose 177 mg/dL (65-115); Lactate Dehydrogenase 352 U/L (135-225); Osmolality Calculated 300 mOsm/kg (285-295); Sodium 137 mmol/L (136-145); Total Bilirubin 0.5 mg/dL (0.15-1.2); Total Protein 6.4 g/dL (6.6-8.7)
== END 2023-01-20 23:59 | disposition home or self-care (01) ==
PROVIDERS: Nurse Practitioner Family; PCP Family Medicine; Referring Provider Internal Medicine; Visit Provider Internal Medicine Medical Oncology
DX: Z08 Encounter for follow-up examination after completed treatment for malignant neoplasm (principal); Z85.6 Personal history of leukemia; M25.571 Pain in right ankle and joints of right foot; Z92.21 Personal history of antineoplastic chemotherapy; Z92.25 Personal history of immunosuppression therapy; Z87.891 Personal history of nicotine dependence
CPT/HCPCS: 36415; 80053; 83615; 85025; 99213

== ENCOUNTER 2023-01-07 14:50 | Outpatient (CLI) | payer OTHER, SELFPAY ==
[2023-01-07 16:13] LABS: Hemoglobin 11.3 g/dL (11.7-16.6)
[2023-01-07 16:25] LABS: Calcium 8.7 mg/dL (8.5-10.5); Parathyroid Hormone 84.2 pg/mL (15-65)
[2023-01-07 16:36] LABS: 25 Hydroxy Vitamin D 47 ng/mL (30-100); Albumin Level 3.7 g/dL (3.5-5.2); Anion Gap 17.8 (5-19); Blood Urea Nitrogen 55 mg/dL (8-23); Calcium 8.8 mg/dL (8.5-10.5); Carbon Dioxide 22 mmol/L (22-29); Chloride 100 mmol/L (98-107); Ferritin 162 ng/mL (30-400); Glucose 302 mg/dL (65-115); Iron 86 ug/dL (59-158); Magnesium 2.2 mg/dL (1.7-2.3); Phosphorus 3.2 mg/dL (2.5-4.5); Potassium 4.8 mmol/L (3.5-5.1); Sodium 135 mmol/L (136-145); Total Iron Binding Capacity 215 mcg/dl; Unsaturated Iron Binding 129 ug/dL (112-347); Uric Acid 11.1 mg/dL (3.4-7.0)
[2023-01-07 16:58] LABS: Bilirubin Urine Neg (Negative); Blood Urine Neg (Negative); Glucose Urine UA 1+ (Normal); Ketones Urine Negative (Negative); Leukocyte Esterase Urine Negative (Negative); Nitrate Urine Negative (Negative); Protein Urine 1+ (Negative); Urine Appearance SL Hazy (CLEAR); Urine Color Yellow (Yellow); Urobilinogen Urine Norm (Negative); pH Urine 5 (5-7)
[2023-01-07 17:02] LABS: Bacteria Urine TRACE /hpf; RBC Urine 0-4 /hpf (0-2); Squamous Epithelial Cell Urine 0-4 /hpf (0-5); WBC Urine 0-4 /hpf (0-5)
[2023-01-07 17:03] LABS: Add Urine Culture? No; Amorphous Sediment Urine TRACE /hpf; Mucus Urine 1+ /hpf
== END 2023-01-07 14:51 | disposition home or self-care (01) ==
LOC: LAB 14:56
PROVIDERS: PCP Family Medicine; Visit Provider Internal Medicine
DX: N18.4 Chronic kidney disease, stage 4 (severe) (principal); D63.0 Anemia in neoplastic disease
CPT/HCPCS: 36415; 80069; 81001; 82306; 82310; 82728; 83540; 83550; 83735; 83970; 84550; 85018

== ENCOUNTER → 2023-01-15 10:42 | Outpatient (BNVA) | payer OTHER, SELFPAY | PROVIDERS: PCP Family Medicine; Visit Provider Internal Medicine | DX: Z45.010 Encounter for checking and testing of cardiac pacemaker pulse generator [battery] (principal) | CPT/HCPCS: 93296 ==

== ENCOUNTER 2023-02-17 13:00 | Oncology outpatient (recurring) (ONCR) | payer OTHER, SELFPAY ==
[2023-02-03 12:13] VITALS: BP 120/51; PULSE 89; RESP 18; TEMP 36.5; O2SAT 94
[2023-02-03 12:28] LABS: Basophils # 0.1 10^3/uL (0.0-0.1); Basophils % 0.2 %; Eosinophils # 0.2 10^3/uL (0.0-0.8); Eosinophils % 0.3 %; Hematocrit 34.3 % (42.0-52.0); Lymphocytes # 45.4 10^3/uL (0.8-4.8); Lymphocytes % 83.2 %; Mean Corpuscular HGB Conc 32.1 g/dL (30.0-36.0); Mean Corpuscular Hemoglobin 30.1 pg (28.0-34.0); Monocytes % 12.8 %; Neutrophils # 1.82 10^3/uL (1.8-7.7); Neutrophils % 3.4 %; Nucleated Red Blood Cells % 0 %; Platelet Count 83 10^3/cmm (130-400); Red Blood Count 3.65 10^6/uL (4.1-5.3); Red Cell Distribution Width 15.9 % (12.1-15.1)
[2023-02-03 12:41] LABS: Slide Review Slide Review Perform
[2023-02-03 12:43] LABS: White Blood Count 54.5 10^3/uL (4.0-10.0)
[2023-02-03 12:51] LABS: Alanine Aminotransferase 12 U/L (0-41); Albumin Level 3.8 g/dL (3.5-5.2); Alkaline Phosphatase 115 U/L (40-130); Anion Gap 14.1 (5-19); Aspartate Amino Transferase 11 U/L (0-40); Blood Urea Nitrogen 41 mg/dL (8-23); Calcium 9.2 mg/dL (8.5-10.5); Carbon Dioxide 25 mmol/L (22-29); Chloride 105 mmol/L (98-107); Globulin 2.2 g/dL (1.3-4.6); Glucose 152 mg/dL (65-115); Lactate Dehydrogenase 329 U/L (135-225); Osmolality Calculated 301 mOsm/kg (285-295); Potassium 5.1 mmol/L (3.5-5.1); Sodium 139 mmol/L (136-145); Total Bilirubin 0.5 mg/dL (0.15-1.2)
[2023-02-17 11:32] LABS: Basophils # 0.1 10^3/uL (0.0-0.1); Basophils % 0.2 %; Eosinophils # 0.2 10^3/uL (0.0-0.8); Eosinophils % 0.4 %; Hematocrit 37.3 % (37-53); Lymphocytes # 40.1 10^3/uL (0.8-4.8); Lymphocytes % 93.3 %; Mean Corpuscular HGB Conc 32.7 g/dL (30-55); Mean Corpuscular Volume 94.7 fl (82-101); Mean Platelet Volume 8.7 fL (7.4-10.4); Monocytes # 0.1 10^3/uL (0.2-0.9); Monocytes % 0.3 %; Neutrophils # 2.37 10^3/uL (1.8-7.7); Neutrophils % 5.6 %; Nucleated Red Blood Cells % 0 %; Platelet Count 107 10^3/cmm (157-399); Red Blood Count 3.94 10^6/uL (3.85-5.65); Red Cell Distribution Width 15.6 % (12.1-15.1)
[2023-02-17 12:02] LABS: White Blood Count 42.97 10^3/uL (3.29-11.43)
[2023-02-17 12:03] LABS: Slide Review Slide Review Perform
== END 2023-02-20 23:59 | disposition home or self-care (01) ==
PROVIDERS: PCP Family Medicine; Referring Provider Internal Medicine; Visit Provider Internal Medicine Medical Oncology
DX: C91.10 Chronic lymphocytic leukemia of B-cell type not having achieved remission
CPT/HCPCS: 36415; 80053; 83615; 85025; 99214

== ENCOUNTER 2023-03-12 08:28 | Oncology outpatient (recurring) (ONCR) | payer OTHER, SELFPAY ==
[2023-03-03 11:14] VITALS: BP 142/63; PULSE 89; RESP 18; TEMP 36.3; O2SAT 97
[2023-03-03 11:35] LABS: Basophils # 0.1 10^3/uL (0.0-0.1); Basophils % 0.2 %; Eosinophils # 0.3 10^3/uL (0.0-0.8); Eosinophils % 0.8 %; Hematocrit 35.9 % (37-53); Lymphocytes # 36.2 10^3/uL (0.8-4.8); Lymphocytes % 93.6 %; Mean Corpuscular HGB Conc 32.3 g/dL (30-55); Mean Corpuscular Hemoglobin 30.4 pg (27-33); Mean Corpuscular Volume 94.2 fl (82-101); Mean Platelet Volume 9.5 fL (7.4-10.4); Monocytes # 0.1 10^3/uL (0.2-0.9); Monocytes % 0.3 %; Neutrophils # 1.92 10^3/uL (1.8-7.7); Nucleated Red Blood Cells % 0 %; Platelet Count 95 10^3/cmm (157-399); Red Blood Count 3.81 10^6/uL (3.85-5.65)
[2023-03-03 11:48] LABS: Slide Review Slide Review Perform
[2023-03-03 11:51] LABS: Alanine Aminotransferase 10 U/L (0-41); Albumin Level 4.5 g/dL (3.5-5.2); Alkaline Phosphatase 83 U/L (40-130); Anion Gap 13.7 (5-19); Aspartate Amino Transferase 10 U/L (0-40); Blood Urea Nitrogen 46 mg/dL (8-23); Calcium 9.3 mg/dL (8.5-10.5); Carbon Dioxide 25 mmol/L (22-29); Chloride 106 mmol/L (98-107); Globulin 1.8 g/dL (1.3-4.6); Glucose 149 mg/dL (65-115); Lactate Dehydrogenase 238 U/L (135-225); Osmolality Calculated 305 mOsm/kg (285-295); Potassium 4.7 mmol/L (3.5-5.1); Sodium 140 mmol/L (136-145); Total Bilirubin 0.6 mg/dL (0.15-1.2); Total Protein 6.3 g/dL (6.6-8.7)
[2023-03-03 11:52] LABS: White Blood Count 38.68 10^3/uL (3.29-11.43)
== END 2023-03-22 23:59 | disposition home or self-care (01) ==
PROVIDERS: PCP Family Medicine; Referring Provider Internal Medicine; Visit Provider Internal Medicine Medical Oncology
DX: Z53.9 Procedure and treatment not carried out, unspecified reason (principal)
CPT/HCPCS: 36415; 80053; 83615; 85025; 99213

== ENCOUNTER 2023-04-14 10:33 | Outpatient (CLI) | payer OTHER, MEDICARE, SELFPAY ==
[2023-04-14 11:14] LABS: Add Urine Microscopic? YES; Bilirubin Urine Neg (Negative); Blood Urine 2+ (Negative); Glucose Urine UA Norm (Normal); Ketones Urine 1+ (Negative); Leukocyte Esterase Urine Negative (Negative); Nitrate Urine Negative (Negative); Protein Urine 3+ (Negative); Specific Gravity, Urine 1.025 (1.005-1.030); Urine Appearance Clear (CLEAR); Urine Color Yellow (Yellow); Urobilinogen Urine Norm (Negative); pH Urine 5 (5-7)
[2023-04-14 11:22] LABS: Calcium 9.2 mg/dL (8.5-10.5)
[2023-04-14 11:22] LABS: Urine Creatinine 163 mg/dL (39-259)
[2023-04-14 11:23] LABS: Blood Urea Nitrogen 45 mg/dL (8-23); Calcium 9.2 mg/dL (8.5-10.5); Carbon Dioxide 24 mmol/L (22-29); Chloride 106 mmol/L (98-107); Ferritin 165 ng/mL (30-400); Glucose 136 mg/dL (65-115); Iron 88 ug/dL (59-158); Magnesium 2.1 mg/dL (1.7-2.3); Osmolality Calculated 304 mOsm/kg (285-295); Percent Saturation 38.4 % (20-50); Phosphorus 3.9 mg/dL (2.5-4.5); Sodium 140 mmol/L (136-145); Total Iron Binding Capacity 229 mcg/dl; Unsaturated Iron Binding 141 ug/dL (112-347); Uric Acid 8.2 mg/dL (3.4-7.0)
[2023-04-14 11:24] LABS: UPRO/UCREAT Ratio 1.01 mg/mg CR; Urine Protein Random 164 mg/dL
[2023-04-14 11:30] LABS: Parathyroid Hormone 72.2 pg/mL (15-65)
[2023-04-14 11:30] LABS: Add Urine Culture? No; Amorphous Sediment Urine TRACE /hpf; Bacteria Urine TRACE /hpf; Fine Granular Casts Urine 0-4 /lpf; Hyaline Casts Urine 0-4 /lpf; Mucus Urine 2+ /hpf; RBC Urine 0-4 /hpf (0-2); Squamous Epithelial Cell Urine 0-4 /hpf (0-5); WBC Urine 0-4 /hpf (0-5)
== END 2023-04-14 10:34 | disposition home or self-care (01) ==
PROVIDERS: PCP Family Medicine; Visit Provider Internal Medicine
DX: Z01.89 Encounter for other specified special examinations (principal)
CPT/HCPCS: 36415; 80048; 81001; 82310; 82570; 82728; 83540; 83550; 83735; 83970; 84100; 84156; 84550; 85018

== ENCOUNTER 2023-04-22 07:48 | Oncology outpatient (recurring) (ONCR) | payer OTHER, SELFPAY ==
[2023-04-09 08:44] VITALS: BP 145/62; PULSE 89; RESP 16; TEMP 36.7; O2SAT 99
[2023-04-09 09:00] LABS: Mean Corpuscular HGB Conc 31.1 g/dL (30-55); Mean Corpuscular Hemoglobin 29.8 pg (27-33); Mean Corpuscular Volume 95.6 fl (82-101); Mean Platelet Volume 9.1 fL (7.4-10.4); Platelet Count 109 10^3/cmm (157-399); Red Blood Count 3.66 10^6/uL (3.85-5.65); Red Cell Distribution Width 16.1 % (12.1-15.1)
[2023-04-09 09:18] LABS: Alanine Aminotransferase 10 U/L (0-41); Alkaline Phosphatase 126 U/L (40-130); Anion Gap 14.2 (5-19); Aspartate Amino Transferase 10 U/L (0-40); Blood Urea Nitrogen 51 mg/dL (8-23); Calcium 9.3 mg/dL (8.5-10.5); Carbon Dioxide 25 mmol/L (22-29); Chloride 103 mmol/L (98-107); Globulin 2.4 g/dL (1.3-4.6); Glucose 137 mg/dL (65-115); Lactate Dehydrogenase 316 U/L (135-225); Osmolality Calculated 300 mOsm/kg (285-295); Potassium 5.2 mmol/L (3.5-5.1); Sodium 137 mmol/L (136-145); Total Bilirubin 0.5 mg/dL (0.15-1.2); Total Protein 6.4 g/dL (6.6-8.7)
[2023-04-09 09:34] LABS: Slide Review Slide Review Perform; White Blood Count 69.24 10^3/uL (3.29-11.43)
[2023-04-09 09:35] LABS: Absolute Neutrophil 1.4 10^3/cmm (1.4-6.5); Absolute Segmented Neutrophil 1.4 10/cmm (1.6-7.1); Eosinophils 0 %; Lymphocytes 56 %; Lymphocytes Absolute 67.9 10^3/cmm (1.2-3.4); Macrocytosis 1+; Platelet Estimate Decreased (Normal); Segmented Neutrophils 2 %; Total Cells Counted 100 (0-100)
[2023-04-22 08:36] LABS: Hematocrit 37.1 % (37-53); Mean Corpuscular HGB Conc 32.3 g/dL (30-55); Mean Corpuscular Hemoglobin 30.3 pg (27-33); Mean Corpuscular Volume 93.7 fl (82-101); Mean Platelet Volume 9.6 fL (7.4-10.4); Platelet Count 52 10^3/cmm (157-399); Red Blood Count 3.96 10^6/uL (3.85-5.65); Red Cell Distribution Width 15.8 % (12.1-15.1); White Blood Count 9.24 10^3/uL (3.29-11.43)
[2023-04-22] MEDS: sodium chloride 0.9% 1,000 ML 999 ML IV (08:41)
[2023-04-22 08:50] VITALS: BP 147/78; PULSE 84; RESP 18; TEMP 36.6; O2SAT 98
[2023-04-22 08:55] LABS: Alanine Aminotransferase 12 U/L (0-41); Albumin Level 3.9 g/dL (3.5-5.2); Alkaline Phosphatase 78 U/L (40-130); Anion Gap 17.2 (5-19); Aspartate Amino Transferase 11 U/L (0-40); Blood Urea Nitrogen 39 mg/dL (8-23); Calcium 9.1 mg/dL (8.5-10.5); Carbon Dioxide 21 mmol/L (22-29); Chloride 101 mmol/L (98-107); Globulin 2.5 g/dL (1.3-4.6); Glucose 238 mg/dL (65-115); Lactate Dehydrogenase 385 U/L (135-225); Osmolality Calculated 297 mOsm/kg (285-295); Potassium 4.2 mmol/L (3.5-5.1); Sodium 135 mmol/L (136-145); Total Bilirubin 0.8 mg/dL (0.15-1.2); Total Protein 6.4 g/dL (6.6-8.7); Uric Acid 7.4 mg/dL (3.4-7.0)
[2023-04-22 09:45] VITALS: BP 182/91; PULSE 98; RESP 17; TEMP 36.6; O2SAT 98
[2023-04-22 09:58] LABS: Slide Review Slide Review Perform
[2023-04-22 09:59] LABS: Total Cells Counted 100 (0-100)
[2023-04-22 10:10] LABS: Absolute Neutrophil 2.4 10^3/cmm (1.4-6.5); Absolute Segmented Neutrophil 2.4 10/cmm (1.6-7.1); Anisocytosis 1+; Eosinophils 0 %; Lymphocytes 39 %; Lymphocytes Absolute 6.8 10^3/cmm (1.2-3.4); Platelet Estimate Decreased (Normal); Poikilocytosis 1+; Segmented Neutrophils 26 %
[2023-04-22 10:11] LABS: Smudge Cells 2+
== END 2023-04-22 23:59 | disposition home or self-care (01) ==
PROVIDERS: PCP Family Medicine; Referring Provider Internal Medicine; Visit Provider Internal Medicine Medical Oncology
DX: Z08 Encounter for follow-up examination after completed treatment for malignant neoplasm (principal); Z85.6 Personal history of leukemia; M25.571 Pain in right ankle and joints of right foot; Z92.21 Personal history of antineoplastic chemotherapy; Z92.25 Personal history of immunosuppression therapy; Z87.891 Personal history of nicotine dependence
CPT/HCPCS: 36415; 80053; 83615; 84550; 85007; 85025; 96360; 96375; 99214; J7030

== ENCOUNTER 2023-05-21 14:00 | Oncology outpatient (recurring) (ONCR) | payer OTHER, SELFPAY ==
[2023-05-12 13:02] VITALS: BP 141/72; PULSE 102; RESP 16; TEMP 36.6; O2SAT 90
[2023-05-12 13:19] LABS: Hematocrit 34.8 % (37-53); Mean Corpuscular HGB Conc 32.5 g/dL (30-55); Mean Corpuscular Hemoglobin 30.5 pg (27-33); Mean Corpuscular Volume 94.1 fl (82-101); Mean Platelet Volume 9.1 fL (7.4-10.4); Platelet Count 51 10^3/cmm (157-399); Red Cell Distribution Width 15.6 % (12.1-15.1); White Blood Count 8.89 10^3/uL (3.29-11.43)
[2023-05-12 14:05] LABS: Alanine Aminotransferase 9 U/L (0-41); Alkaline Phosphatase 75 U/L (40-130); Aspartate Amino Transferase 10 U/L (0-40); Blood Urea Nitrogen 37 mg/dL (8-23); Calcium 9.1 mg/dL (8.5-10.5); Carbon Dioxide 20 mmol/L (22-29); Chloride 104 mmol/L (98-107); Globulin 2.5 g/dL (1.3-4.6); Glucose 203 mg/dL (65-115); Lactate Dehydrogenase 342 U/L (135-225); Osmolality Calculated 300 mOsm/kg (285-295); Sodium 138 mmol/L (136-145); Total Bilirubin 0.9 mg/dL (0.15-1.2); Total Protein 6.5 g/dL (6.6-8.7)
[2023-05-12 14:32] LABS: Slide Review Slide Review Perform; Total Cells Counted 100 (0-100)
[2023-05-12 14:40] LABS: Absolute Neutrophil 2.8 10^3/cmm (1.4-6.5); Absolute Segmented Neutrophil 2.8 10/cmm (1.6-7.1); Eosinophils 0 %; Lymphocytes 36 %; Monocytes Absolute 0.1 10^3/cmm (0.1-0.6); Platelet Estimate Decreased (Normal); Segmented Neutrophils 32 %
[2023-05-12] MEDS: sodium chloride 0.9% 1,000 ML 999 ML IV (15:30)
[2023-05-12] MEDS: ondansetron 2 mg/ML SDV 2 mL 8 MG IVP (15:31)
[2023-05-12 16:46] VITALS: BP 157/77; PULSE 85; RESP 16; TEMP 36.3; O2SAT 98
[2023-05-21 13:55] VITALS: BP 100/57; PULSE 107; RESP 16; TEMP 37; O2SAT 96
[2023-05-21 14:10] LABS: Eosinophils # 0.1 10^3/uL (0.0-0.8); Eosinophils % 0.2 %; Hematocrit 33.2 % (37-53); Lymphocytes # 68.5 10^3/uL (0.8-4.8); Lymphocytes % 90.5 %; Mean Corpuscular HGB Conc 31.6 g/dL (30-55); Mean Corpuscular Hemoglobin 30.3 pg (27-33); Mean Platelet Volume 9.4 fL (7.4-10.4); Monocytes # 4.9 10^3/uL (0.2-0.9); Monocytes % 6.5 %; Neutrophils # 2.08 10^3/uL (1.8-7.7); Neutrophils % 2.7 %; Nucleated Red Blood Cells % 0 %; Platelet Count 93 10^3/cmm (157-399); Red Blood Count 3.46 10^6/uL (3.85-5.65); Red Cell Distribution Width 16.3 % (12.1-15.1)
[2023-05-21 14:39] LABS: Alanine Aminotransferase 8 U/L (0-41); Albumin Level 4.1 g/dL (3.5-5.2); Alkaline Phosphatase 104 U/L (40-130); Aspartate Amino Transferase 8 U/L (0-40); Blood Urea Nitrogen 48 mg/dL (8-23); Calcium 9.3 mg/dL (8.5-10.5); Carbon Dioxide 23 mmol/L (22-29); Chloride 105 mmol/L (98-107); Glucose 128 mg/dL (65-115); Osmolality Calculated 302 mOsm/kg (285-295); Sodium 139 mmol/L (136-145); Total Bilirubin 0.7 mg/dL (0.15-1.2); Total Protein 6.1 g/dL (6.6-8.7)
[2023-05-21 15:22] LABS: White Blood Count 75.65 10^3/uL (3.29-11.43)
[2023-05-21 15:27] LABS: Slide Review Slide Review Perform
== END 2023-05-22 23:59 | disposition home or self-care (01) ==
PROVIDERS: PCP Family Medicine; Referring Provider Internal Medicine; Visit Provider Internal Medicine Medical Oncology
DX: Z08 Encounter for follow-up examination after completed treatment for malignant neoplasm (principal); Z85.6 Personal history of leukemia; M25.571 Pain in right ankle and joints of right foot; Z92.21 Personal history of antineoplastic chemotherapy; Z92.25 Personal history of immunosuppression therapy; Z87.891 Personal history of nicotine dependence
CPT/HCPCS: 36415; 80053; 83615; 85007; 85025; 96365; 96368; 96374; 96375; 99214; J1100; J2405; J7030

== ENCOUNTER 2023-05-27 14:25 | Outpatient (CLI) | payer OTHER, SELFPAY ==
[2023-05-27 15:53] LABS: Anion Gap 17.3 (5-19); Blood Urea Nitrogen 38 mg/dL (8-23); Calcium 9.1 mg/dL (8.5-10.5); Carbon Dioxide 22 mmol/L (22-29); Chloride 106 mmol/L (98-107); Ferritin 135 ng/mL (30-400); Glucose 208 mg/dL (65-115); Iron 66 ug/dL (59-158); Osmolality Calculated 305 mOsm/kg (285-295); Percent Saturation 28.5 % (20-50); Phosphorus 2.7 mg/dL (2.5-4.5); Potassium 5.3 mmol/L (3.5-5.1); Sodium 140 mmol/L (136-145); Total Iron Binding Capacity 231 mcg/dl; Unsaturated Iron Binding 165 ug/dL (112-347); Uric Acid 7.4 mg/dL (3.4-7.0)
[2023-05-27 16:14] LABS: Creatinine Urine, Random 194 mg/dL (39-259)
[2023-05-27 16:31] LABS: Microalbum Creatinine Ratio Ur 608 mg/dL (0-20); Microalbumin Random Urine 118 ug/dL (0-20)
[2023-05-27 17:01] LABS: Estmated Average Glucose 154
[2023-05-27 17:08] LABS: Calcium 8.9 mg/dL (8.5-10.5); Parathyroid Hormone 75.1 pg/mL (15-65)
[2023-05-27 17:37] LABS: Bilirubin Urine Neg (Negative); Blood Urine 2+ (Negative); Glucose Urine UA Norm (Normal); Ketones Urine Negative (Negative); Nitrate Urine Negative (Negative); Protein Urine 3+ (Negative); Specific Gravity, Urine 1.015 (1.005-1.030); Urine Appearance Clear (CLEAR); Urine Color Yellow (Yellow); pH Urine 5 (5-7)
[2023-05-27 17:38] LABS: Add Urine Microscopic? YES; Leukocyte Esterase Urine Negative (Negative); Urobilinogen Urine Norm (Negative)
[2023-05-27 17:41] LABS: Add Urine Culture? No; Amorphous Sediment Urine TRACE /hpf; Bacteria Urine TRACE /hpf; Hyaline Casts Urine 0-4 /lpf; Mucus Urine 1+ /hpf; RBC Urine 0-4 /hpf (0-2); Squamous Epithelial Cell Urine 0-4 /hpf (0-5); WBC Urine 0-4 /hpf (0-5)
[2023-05-27 17:46] LABS: Urine Creatinine 191 mg/dL (39-259)
[2023-05-27 17:47] LABS: UPRO/UCREAT Ratio 0.95 mg/mg CR; Urine Protein Random 181 mg/dL
== END 2023-05-27 14:26 | disposition home or self-care (01) ==
LOC: LAB 14:28
PROVIDERS: PCP Family Medicine; Visit Provider Internal Medicine
DX: E87.5 Hyperkalemia (principal); E79.0 Hyperuricemia without signs of inflammatory arthritis and tophaceous disease; N18.4 Chronic kidney disease, stage 4 (severe); D63.0 Anemia in neoplastic disease; R80.0 Isolated proteinuria
CPT/HCPCS: 36415; 80048; 81001; 82044; 82310; 82570; 82728; 83036; 83540; 83550; 83970; 84100; 84156; 84550

== ENCOUNTER 2023-05-29 08:18 | Oncology outpatient (recurring) (ONCR) | payer OTHER, SELFPAY ==
[2023-05-29 08:43] LABS: Hematocrit 32.6 % (37-53); Mean Corpuscular Hemoglobin 30.4 pg (27-33); Mean Corpuscular Volume 98.2 fl (82-101); Mean Platelet Volume 9.5 fL (7.4-10.4); Platelet Count 111 10^3/cmm (157-399); Red Blood Count 3.32 10^6/uL (3.85-5.65); Red Cell Distribution Width 16.4 % (12.1-15.1)
[2023-05-29 09:04] LABS: Alanine Aminotransferase 7 U/L (0-41); Alkaline Phosphatase 97 U/L (40-130); Anion Gap 14.1 (5-19); Aspartate Amino Transferase 8 U/L (0-40); Blood Urea Nitrogen 34 mg/dL (8-23); Calcium 9.1 mg/dL (8.5-10.5); Carbon Dioxide 25 mmol/L (22-29); Chloride 105 mmol/L (98-107); Globulin 2.1 g/dL (1.3-4.6); Glucose 149 mg/dL (65-115); Lactate Dehydrogenase 205 U/L (135-225); Osmolality Calculated 298 mOsm/kg (285-295); Potassium 5.1 mmol/L (3.5-5.1); Sodium 139 mmol/L (136-145); Total Bilirubin 0.6 mg/dL (0.15-1.2); Total Protein 6.1 g/dL (6.6-8.7)
[2023-05-29 09:59] LABS: Absolute Segmented Neutrophil 1.1 10/cmm (1.6-7.1); Eosinophils 0 %; Lymphocytes 11 %; Segmented Neutrophils 2 %; Slide Review Slide Review Perform; Total Cells Counted 100 (0-100); White Blood Count 53.94 10^3/uL (3.29-11.43)
[2023-05-29 10:00] LABS: Absolute Neutrophil 1.1 10^3/cmm (1.4-6.5); Lymphocytes Absolute 52.9 10^3/cmm (1.2-3.4); Platelet Estimate Decreased (Normal)
== END 2023-06-22 23:59 | disposition home or self-care (01) ==
PROVIDERS: PCP Family Medicine; Referring Provider Internal Medicine; Visit Provider Internal Medicine Medical Oncology
DX: Z08 Encounter for follow-up examination after completed treatment for malignant neoplasm (principal); Z85.6 Personal history of leukemia; M25.571 Pain in right ankle and joints of right foot; Z92.21 Personal history of antineoplastic chemotherapy; Z92.25 Personal history of immunosuppression therapy; Z87.891 Personal history of nicotine dependence; C91.10 Chronic lymphocytic leukemia of B-cell type not having achieved remission
CPT/HCPCS: 36415; 80053; 83615; 85007; 85025; 99214

== ENCOUNTER 2023-07-02 10:58 | Oncology outpatient (recurring) (ONCR) | payer OTHER, SELFPAY ==
[2023-07-02 11:44] LABS: Eosinophils # 0.4 10^3/uL (0.0-0.8); Eosinophils % 0.7 %; Lymphocytes # 54.1 10^3/uL (0.8-4.8); Lymphocytes % 95.7 %; Mean Corpuscular HGB Conc 31.4 g/dL (30-55); Mean Corpuscular Hemoglobin 31.2 pg (27-33); Mean Corpuscular Volume 99.2 fl (82-101); Mean Platelet Volume 9.7 fL (7.4-10.4); Monocytes # 0.1 10^3/uL (0.2-0.9); Monocytes % 0.2 %; Neutrophils # 1.86 10^3/uL (1.8-7.7); Neutrophils % 3.3 %; Nucleated Red Blood Cells % 0 %; Platelet Count 79 10^3/cmm (157-399); Red Blood Count 3.53 10^6/uL (3.85-5.65); Red Cell Distribution Width 16.3 % (12.1-15.1)
[2023-07-02 11:50] VITALS: BP 143/68; PULSE 103; RESP 16; TEMP 37.2; O2SAT 96
[2023-07-02 11:59] LABS: White Blood Count 56.56 10^3/uL (3.29-11.43)
[2023-07-02 12:01] LABS: Alanine Aminotransferase 7 U/L (0-41); Albumin Level 4.3 g/dL (3.5-5.2); Alkaline Phosphatase 100 U/L (40-130); Anion Gap 14.3 (5-19); Aspartate Amino Transferase 9 U/L (0-40); Blood Urea Nitrogen 44 mg/dL (8-23); Calcium 9.8 mg/dL (8.5-10.5); Carbon Dioxide 25 mmol/L (22-29); Chloride 107 mmol/L (98-107); Globulin 2.1 g/dL (1.3-4.6); Glucose 109 mg/dL (65-115); Lactate Dehydrogenase 184 U/L (135-225); Osmolality Calculated 306 mOsm/kg (285-295); Potassium 4.3 mmol/L (3.5-5.1); Sodium 142 mmol/L (136-145); Total Bilirubin 0.5 mg/dL (0.15-1.2); Total Protein 6.4 g/dL (6.6-8.7)
[2023-07-02 12:02] LABS: Slide Review Slide Review Perform
== END 2023-07-23 23:59 | disposition home or self-care (01) ==
PROVIDERS: PCP Family Medicine; Referring Provider Internal Medicine; Visit Provider Internal Medicine Medical Oncology
DX: Z08 Encounter for follow-up examination after completed treatment for malignant neoplasm (principal); Z85.6 Personal history of leukemia; M25.571 Pain in right ankle and joints of right foot; Z92.21 Personal history of antineoplastic chemotherapy; Z92.25 Personal history of immunosuppression therapy; Z87.891 Personal history of nicotine dependence; C91.10 Chronic lymphocytic leukemia of B-cell type not having achieved remission
CPT/HCPCS: 36415; 80053; 83615; 85025; 99214

== ENCOUNTER 2023-08-18 11:00 | Oncology outpatient (recurring) (ONCR) | payer OTHER, SELFPAY ==
[2023-08-06 14:35] LABS: Basophils # 0.1 10^3/uL (0.0-0.1); Basophils % 0.2 %; Eosinophils # 0.5 10^3/uL (0.0-0.8); Eosinophils % 1.4 %; Hematocrit 33.8 % (37-53); Lymphocytes # 36.2 10^3/uL (0.8-4.8); Mean Corpuscular HGB Conc 32.2 g/dL (30-55); Mean Corpuscular Hemoglobin 31.6 pg (27-33); Mean Platelet Volume 9.3 fL (7.4-10.4); Monocytes # 0.2 10^3/uL (0.2-0.9); Monocytes % 0.6 %; Neutrophils # 1.83 10^3/uL (1.8-7.7); Neutrophils % 4.7 %; Nucleated Red Blood Cells % 0 %; Platelet Count 112 10^3/cmm (157-399); Red Blood Count 3.45 10^6/uL (3.85-5.65); Red Cell Distribution Width 14.4 % (12.1-15.1)
[2023-08-06 14:59] LABS: Alanine Aminotransferase 8 U/L (0-41); Alkaline Phosphatase 82 U/L (40-130); Anion Gap 13.7 (5-19); Aspartate Amino Transferase 10 U/L (0-40); Blood Urea Nitrogen 44 mg/dL (8-23); Calcium 8.8 mg/dL (8.5-10.5); Carbon Dioxide 26 mmol/L (22-29); Chloride 107 mmol/L (98-107); Glucose 154 mg/dL (65-115); Lactate Dehydrogenase 187 U/L (135-225); Osmolality Calculated 308 mOsm/kg (285-295); Potassium 4.7 mmol/L (3.5-5.1); Sodium 142 mmol/L (136-145); Total Bilirubin 0.5 mg/dL (0.15-1.2)
[2023-08-06 15:30] LABS: Slide Review Slide Review Perform
[2023-08-18 11:58] VITALS: BP 147/65; PULSE 91; RESP 16; TEMP 36.9; O2SAT 99
[2023-08-18] MEDS: sodium chloride 0.9% 1,000 ML 999 ML IV (12:36)
== END 2023-08-21 23:59 | disposition home or self-care (01) ==
PROVIDERS: PCP Family Medicine; Referring Provider Internal Medicine; Visit Provider Internal Medicine Medical Oncology
DX: C91.10 Chronic lymphocytic leukemia of B-cell type not having achieved remission (principal); Z53.9 Procedure and treatment not carried out, unspecified reason
CPT/HCPCS: 36415; 80053; 83615; 85025; 99214; J7030

== ENCOUNTER 2023-10-13 15:08 | Oncology outpatient (recurring) (ONCR) | payer OTHER, SELFPAY ==
[2023-10-13 11:43] LABS: Eosinophils # 0.2 10^3/uL (0.0-0.8); Eosinophils % 0.2 %; Lymphocytes # 59.8 10^3/uL (0.8-4.8); Lymphocytes % 91.5 %; Mean Corpuscular HGB Conc 31.4 g/dL (30-55); Mean Corpuscular Hemoglobin 30.7 pg (27-33); Monocytes # 3.4 10^3/uL (0.2-0.9); Monocytes % 5.2 %; Neutrophils # 1.88 10^3/uL (1.8-7.7); Nucleated Red Blood Cells % 0 %; Platelet Count 103 10^3/cmm (157-399); Red Blood Count 2.96 10^6/uL (3.85-5.65); Red Cell Distribution Width 17.2 % (12.1-15.1)
[2023-10-13 12:00] LABS: Alanine Aminotransferase 6 U/L (0-41); Albumin Level 3.8 g/dL (3.5-5.2); Alkaline Phosphatase 106 U/L (40-130); Aspartate Amino Transferase 8 U/L (0-40); Blood Urea Nitrogen 45 mg/dL (8-23); Calcium 8.8 mg/dL (8.5-10.5); Carbon Dioxide 25 mmol/L (22-29); Chloride 106 mmol/L (98-107); Globulin 2.1 g/dL (1.3-4.6); Glucose 114 mg/dL (65-115); Lactate Dehydrogenase 245 U/L (135-225); Osmolality Calculated 300 mOsm/kg (285-295); Sodium 139 mmol/L (136-145); Total Bilirubin 0.5 mg/dL (0.15-1.2); Total Protein 5.9 g/dL (6.6-8.7)
[2023-10-13 12:34] LABS: Slide Review Slide Review Perform
[2023-10-13 12:35] LABS: White Blood Count 65.38 10^3/uL (3.29-11.43)
[2023-10-13 16:03] LABS: Urine Appearance Clear (CLEAR); Urine Color Yellow (Yellow); pH Urine 6 (5-7)
[2023-10-13 16:04] LABS: Add Urine Culture? No; Bacteria Urine TRACE /hpf; Bilirubin Urine Neg (Negative); Blood Urine 2+ (Negative); Glucose Urine UA Norm (Normal); Ketones Urine Negative (Negative); Leukocyte Esterase Urine Negative (Negative); Nitrate Urine Negative (Negative); Protein Urine 2+ (Negative); RBC Urine 0-4 /hpf (0-2); Squamous Epithelial Cell Urine 0-4 /hpf (0-5); Urobilinogen Urine Norm (Negative); WBC Urine 0-4 /hpf (0-5)
[2023-10-13 16:17] LABS: Estmated Average Glucose 146; Hemoglobin A1C 6.7 % (4.0-6.0)
[2023-10-13 16:19] LABS: Anion Gap 14.9 (5-19); Blood Urea Nitrogen 46 mg/dL (8-23); Calcium 8.9 mg/dL (8.5-10.5); Carbon Dioxide 23 mmol/L (22-29); Chloride 108 mmol/L (98-107); Creatinine Clr Calc Pharmacy 28.5799; Glucose 147 mg/dL (65-115); Magnesium 2.2 mg/dL (1.7-2.3); Osmolality Calculated 307 mOsm/kg (285-295); Potassium 4.9 mmol/L (3.5-5.1); Sodium 141 mmol/L (136-145); Uric Acid 8.6 mg/dL (3.4-7.0)
[2023-10-13 16:25] LABS: Calcium 8.2 mg/dL (8.5-10.5)
[2023-10-13 16:34] LABS: Urine Creatinine 64 mg/dL (39-259)
[2023-10-13 16:35] LABS: UPRO/UCREAT Ratio 1.97 mg/mg CR; Urine Protein Random 126 mg/dL
[2023-10-13 16:51] LABS: Parathyroid Hormone 100.9 pg/mL (15-65)
== END 2023-10-21 23:59 | disposition home or self-care (01) ==
PROVIDERS: PCP Family Medicine; Referring Provider Internal Medicine; Visit Provider Internal Medicine Medical Oncology
DX: C91.10 Chronic lymphocytic leukemia of B-cell type not having achieved remission (principal); Z92.21 Personal history of antineoplastic chemotherapy; Z92.25 Personal history of immunosuppression therapy; Z87.891 Personal history of nicotine dependence; Z53.9 Procedure and treatment not carried out, unspecified reason; E11.9 Type 2 diabetes mellitus without complications; Z79.4 Long term (current) use of insulin
CPT/HCPCS: 36415; 80048; 80053; 81001; 82310; 82570; 83036; 83615; 83735; 83970; 84100; 84156; 84550; 85025; 99213

== ENCOUNTER → 2023-11-13 13:05 | Outpatient (BNVA) | payer OTHER, SELFPAY | PROVIDERS: PCP Family Medicine; Visit Provider Internal Medicine | DX: I25.10 Atherosclerotic heart disease of native coronary artery without angina pectoris (principal); I12.9 Hypertensive chronic kidney disease with stage 1 through stage 4 chronic kidney disease, or unspecified chronic kidney disease; Z95.1 Presence of aortocoronary bypass graft; E11.22 Type 2 diabetes mellitus with diabetic chronic kidney disease; N18.32 Chronic kidney disease, stage 3b; Z79.4 Long term (current) use of insulin; Z98.61 Coronary angioplasty status; Z95.0 Presence of cardiac pacemaker; E78.5 Hyperlipidemia, unspecified; I65.23 Occlusion and stenosis of bilateral carotid arteries; Z87.891 Personal history of nicotine dependence | CPT/HCPCS: 99214 ==

== ENCOUNTER 2023-11-20 13:00 | Oncology outpatient (recurring) (ONCR) | payer OTHER, SELFPAY ==
--- NOTE | 2023-11-06 12:03 | CT_ITS ---
WS: [id number] CT ABDOMEN AND PELVIS NONCONTRAST HISTORY: FOLLOW UP ABNORMAL AAS TECHNIQUE: Imaging performed through the abdomen and pelvis. Coronal and sagittal reformats are submi tted. All CT scans at [facility] use at least one of these dose optimization techniques: auto mated exposure control; mA and/or kV adjustment per patient size (includes targeted exams where dose is matched to clinical indication); or iterative reconstruction. DLP: 884.55 mGy.cm COMPARISON: 05/03/2021 Lower thorax: Mild dependent changes at the lung bases. Mild cardiomegaly. Prior CABG. Liver: Heterogeneous liver. Probably due to hepatic steatosis. Granulomata. Gallbladder: Normally distended with numerous stones. There is a single stone near the gallbladder ne ck. No common bile duct obstruction. Pancreas: Normal size and attenuation. Normal pancreatic duct. No pancreatitis or mass. Spleen: 16.1 cm in length. Similar to the prior study. Adrenal glands: Normal. No mass. Right kidney: Perinephric stranding. No obstruction. Patient has a known complex cyst with peripheral calcification extending laterally from the mid kidney. Cyst measures 6.6 x 6.9 x 8.8 cm. Cyst has no t significantly increased in size since 2020. There is diffuse wall thickening and calcification. Add itional cortical low-attenuation masses are identified. These cannot be further evaluated without con trast. Left kidney: Perinephric stranding with an area of soft tissue prominence in the lower pole measuring 3.1 x 3.3 cm. This soft tissue is isodense to the adjacent soft tissue of the kidney. This should be further evaluated for a neoplasm. Aorta: Moderate to severe atherosclerosis abdominal aorta. No aneurysm. Atherosclerosis continues int o the common iliac arteries. Small shotty retroperitoneal lymph nodes. GI tract: Fluid-filled stomach. No small bowel obstruction. Diffuse constipation. Prior appendectomy. Abdominal wall: Negative. No hernia. Pelvis: Nondistended urinary bladder. No free fluid or adenopathy. Contiguous atherosclerotic plaque in the iliac arteries. Osseous structures: No destructive bone lesions. CT/CT abdomen pelvis wo con [id number] IMPRESSION: 1. Cholelithiasis without acute cholecystitis. 2. Cystic mass extending lateral from the RIGHT kidney measures 6.5 x 6.9 x 8. 8 cm. This is a complex cystic mass with peripheral calcification. This is not a simple cyst but not significantly changed since 05/03/2021. 3. Solid mass mid LEFT kidney measures 3.1 x 3.3 cm. Recommend further evaluat ion to exclude renal neoplasm or uroepithelial mass. If the patient cannot unde rgo CT with renal mass protocol ultrasound should be obtained. 4. Mild splenomegaly. No change.
[2023-11-20 14:15] LABS: Hematocrit 30.1 % (37-53); Mean Corpuscular HGB Conc 31.2 g/dL (30-55); Mean Corpuscular Hemoglobin 30.5 pg (27-33); Mean Corpuscular Volume 97.7 fl (82-101); Mean Platelet Volume 9.1 fL (7.4-10.4); Platelet Count 148 10^3/cmm (157-399); Red Blood Count 3.08 10^6/uL (3.85-5.65); Red Cell Distribution Width 17.4 % (12.1-15.1)
[2023-11-20 14:26] LABS: Alanine Aminotransferase 6 U/L (0-41); Alkaline Phosphatase 102 U/L (40-130); Anion Gap 14.8 (5-19); Aspartate Amino Transferase 8 U/L (0-40); Blood Urea Nitrogen 50 mg/dL (8-23); Carbon Dioxide 25 mmol/L (22-29); Chloride 103 mmol/L (98-107); Globulin 2.4 g/dL (1.3-4.6); Glucose 124 mg/dL (65-115); Lactate Dehydrogenase 203 U/L (135-225); Osmolality Calculated 301 mOsm/kg (285-295); Potassium 4.8 mmol/L (3.5-5.1); Sodium 138 mmol/L (136-145); Total Bilirubin 0.4 mg/dL (0.15-1.2); Total Protein 6.4 g/dL (6.6-8.7)
[2023-11-20 14:45] LABS: White Blood Count 44.81 10^3/uL (3.29-11.43)
[2023-11-20 14:46] LABS: Absolute Eosinophils 0.4 10^3/cmm (0.0-0.7); Absolute Neutrophil 3.1 10^3/cmm (1.4-6.5); Absolute Segmented Neutrophil 3.1 10/cmm (1.6-7.1); Eosinophils 1 %; Lymphocytes 22 %; Lymphocytes Absolute 41.2 10^3/cmm (1.2-3.4); Platelet Estimate Normal (Normal); Segmented Neutrophils 7 %; Slide Review Slide Review Perform; Total Cells Counted 100 (0-100)
== END 2023-11-21 23:59 | disposition home or self-care (01) ==
PROVIDERS: Nurse Practitioner Family; PCP Family Medicine; Referring Provider Internal Medicine; Visit Provider Internal Medicine Medical Oncology
DX: Z53.9 Procedure and treatment not carried out, unspecified reason; C91.10 Chronic lymphocytic leukemia of B-cell type not having achieved remission; Z87.891 Personal history of nicotine dependence; Z92.3 Personal history of irradiation; Z92.25 Personal history of immunosuppression therapy; E11.9 Type 2 diabetes mellitus without complications; Z79.4 Long term (current) use of insulin
CPT/HCPCS: 36415; 74176; 80053; 83615; 85007; 85025; 99214

== ENCOUNTER 2023-12-22 09:40 | Outpatient (CLI) | payer OTHER, SELFPAY ==
--- NOTE | 2023-12-22 09:50 | US_ITS ---
WS: [id number] RENAL ULTRASOUND HISTORY: RENAL MASS ON CT SCAN COMPARISON: CT 11/06/2023 TECHNIQUE: 2-D and color Doppler imaging of the kidney submitted. Right kidney: 10.4 cm x 4.0 cm x 5.6 cm. Cortex: 1.3 cm Kidney is normal size. There is a complex mass with peripheral calcification associated with the supe rior pole measures 7.1 x 6.5 x 6.5 cm. This mass has been previously described since 05/03/2021 with no change. Left kidney: 11.9 cm x 5.4 cm x 5.1 cm. Cortex: 1.2 cm Normal size kidney. Single central parapelvic cyst is identified measuring 3.3 x 3.7 x 2.[address] has increased in size since the prior ultrasound from 12/29/2020. This corresponds to the abnormal m ass seen on the CT of 11/06/2023. No solid mass identified. This is probably a complex cyst with prote in. Aorta: Mild atherosclerosis aorta. Urinary Bladder: Normal distention. US/US renal BI* [id number] IMPRESSION: 1. Previously described indeterminate mass within the LEFT kidney from a CT of 11/06/2023 corresponds to a LEFT parapelvic cyst measures 3.3 x 3.7 x 2.9 cm. N o solid mass. 2. Long-term stability of a complex cyst with peripheral calcification RIGHT k kearaney.
== END 2023-12-22 09:41 | disposition home or self-care (01) ==
LOC: RAD 09:41
PROVIDERS: PCP Family Medicine; Visit Provider Family Medicine
DX: Z01.89 Encounter for other specified special examinations (principal); N28.89 Other specified disorders of kidney and ureter; N28.1 Cyst of kidney, acquired
CPT/HCPCS: 76770

== ENCOUNTER 2024-02-17 11:41 | Oncology outpatient (recurring) (ONCR) | payer OTHER, SELFPAY ==
[2024-02-17 12:03] LABS: Hematocrit 32.7 % (37-53); Mean Corpuscular HGB Conc 31.8 g/dL (30-55); Mean Corpuscular Hemoglobin 29.9 pg (27-33); Mean Platelet Volume 10.7 fL (7.4-10.4); Platelet Count 61 10^3/cmm (157-399); Red Blood Count 3.48 10^6/uL (3.85-5.65); Red Cell Distribution Width 15.5 % (12.1-15.1)
[2024-02-17 12:16] LABS: Alanine Aminotransferase 8 U/L (0-41); Albumin Level 3.7 g/dL (3.5-5.2); Alkaline Phosphatase 79 U/L (40-130); Anion Gap 18.4 (5-19); Aspartate Amino Transferase 8 U/L (0-40); Blood Urea Nitrogen 77 mg/dL (8-23); Calcium 8.8 mg/dL (8.5-10.5); Carbon Dioxide 20 mmol/L (22-29); Chloride 105 mmol/L (98-107); Globulin 2.1 g/dL (1.3-4.6); Glucose 247 mg/dL (65-115); Lactate Dehydrogenase 323 U/L (135-225); Osmolality Calculated 319 mOsm/kg (285-295); Potassium 4.4 mmol/L (3.5-5.1); Sodium 139 mmol/L (136-145); Total Bilirubin 0.4 mg/dL (0.15-1.2); Total Protein 5.8 g/dL (6.6-8.7)
[2024-02-17 12:57] LABS: Slide Review Slide Review Perform
[2024-02-17 12:58] LABS: Absolute Neutrophil 3.9 10^3/cmm (1.4-6.5); Absolute Segmented Neutrophil 3.9 10/cmm (1.6-7.1); Eosinophils 0 %; Hypochromasia Trace; Lymphocytes 51 %; Lymphocytes Absolute 34.5 10^3/cmm (1.2-3.4); Monocytes Absolute 0.4 10^3/cmm (0.1-0.6); Platelet Estimate Decreased (Normal); Segmented Neutrophils 10 %; Total Cells Counted 100 (0-100)
[2024-02-17 12:59] LABS: Smudge Cells 1+
[2024-02-17] MEDS: sodium chloride 0.9% 1,000 ML 999 ML IV (14:21)
[2024-02-17] MEDS: methylPREDNISolone sod succ 40 mg/mL INJ 30 MG IVP (14:21)
[2024-02-17 16:07] VITALS: BP 154/69; PULSE 69; TEMP 36.4; O2SAT 98
== END 2024-02-21 23:59 | disposition home or self-care (01) ==
PROVIDERS: PCP Family Medicine; Referring Provider Internal Medicine; Visit Provider Internal Medicine Medical Oncology
DX: C91.10 Chronic lymphocytic leukemia of B-cell type not having achieved remission; Z79.899 Other long term (current) drug therapy
CPT/HCPCS: 36415; 80053; 83615; 85007; 85025; 96361; 96374; 99214; J2919; J7030

== ENCOUNTER 2024-03-09 14:10 | Outpatient (CLI) | payer OTHER, SELFPAY ==
[2024-03-09 14:48] LABS: Bacteria Urine 1+ /hpf; Bilirubin Urine Neg (Negative); Blood Urine 2+ (Negative); Fine Granular Casts Urine 0-4 /lpf; Glucose Urine UA Trace (Normal); Ketones Urine Negative (Negative); Leukocyte Esterase Urine Negative (Negative); Nitrate Urine Negative (Negative); Protein Urine 3+ (Negative); RBC Urine 0-4 /hpf (0-2); Squamous Epithelial Cell Urine 0-4 /hpf (0-5); Urine Appearance Clear (CLEAR); Urine Color Yellow (Yellow); Urobilinogen Urine Norm (Negative); WBC Urine 0-4 /hpf (0-5); pH Urine 5 (5-7)
[2024-03-09 14:58] LABS: Calcium 8.8 mg/dL (8.5-10.5)
[2024-03-09 14:59] LABS: Albumin Level 3.8 g/dL (3.5-5.2); Anion Gap 17.6 (5-19); Blood Urea Nitrogen 71 mg/dL (8-23); Calcium 8.8 mg/dL (8.5-10.5); Carbon Dioxide 21 mmol/L (22-29); Chloride 104 mmol/L (98-107); Ferritin 150 ng/mL (30-400); Glucose 120 mg/dL (65-115); Iron 106 ug/dL (59-158); Magnesium 2.1 mg/dL (1.7-2.3); Osmolality Calculated 308 mOsm/kg (285-295); Percent Saturation 45.8 % (20-50); Phosphorus 4.3 mg/dL (2.5-4.5); Potassium 4.6 mmol/L (3.5-5.1); Sodium 138 mmol/L (136-145); Total Iron Binding Capacity 231 mcg/dl; Unsaturated Iron Binding 125 ug/dL (112-347); Uric Acid 9.7 mg/dL (3.4-7.0)
[2024-03-09 15:00] LABS: Urine Creatinine 118 mg/dL (39-259)
[2024-03-09 15:05] LABS: Parathyroid Hormone 84.1 pg/mL (15-65)
[2024-03-09 15:13] LABS: UPRO/UCREAT Ratio 2.09 mg/mg CR; Urine Protein Random 247 mg/dL
[2024-03-09 15:15] LABS: 25 Hydroxy Vitamin D 48 ng/mL (30-100)
== END 2024-03-09 14:11 | disposition home or self-care (01) ==
LOC: LAB 14:11
PROVIDERS: PCP Family Medicine; Visit Provider Nurse Practitioner Gerontology
DX: I12.9 Hypertensive chronic kidney disease with stage 1 through stage 4 chronic kidney disease, or unspecified chronic kidney disease (principal); N18.4 Chronic kidney disease, stage 4 (severe); N25.81 Secondary hyperparathyroidism of renal origin; E79.0 Hyperuricemia without signs of inflammatory arthritis and tophaceous disease; R80.9 Proteinuria, unspecified; D63.0 Anemia in neoplastic disease
CPT/HCPCS: 36415; 80048; 81001; 82040; 82306; 82310; 82570; 82728; 83540; 83550; 83735; 83970; 84100; 84156; 84550; 85018

== ENCOUNTER 2024-03-15 10:15 | Oncology outpatient (recurring) (ONCR) | payer OTHER, SELFPAY ==
[2024-03-03 09:27] LABS: Hematocrit 37.9 % (37-53); Mean Corpuscular HGB Conc 31.9 g/dL (30-55); Mean Corpuscular Hemoglobin 29.9 pg (27-33); Mean Corpuscular Volume 93.6 fl (82-101); Mean Platelet Volume 9.5 fL (7.4-10.4); Platelet Count 73 10^3/cmm (157-399); Red Blood Count 4.05 10^6/uL (3.85-5.65); Red Cell Distribution Width 15.5 % (12.1-15.1); White Blood Count 14.49 10^3/uL (3.29-11.43)
[2024-03-03 09:48] LABS: Alanine Aminotransferase 11 U/L (0-41); Albumin Level 3.8 g/dL (3.5-5.2); Alkaline Phosphatase 74 U/L (40-130); Anion Gap 18.7 (5-19); Aspartate Amino Transferase 14 U/L (0-40); Blood Urea Nitrogen 42 mg/dL (8-23); Calcium 8.8 mg/dL (8.5-10.5); Carbon Dioxide 20 mmol/L (22-29); Chloride 101 mmol/L (98-107); Globulin 2.4 g/dL (1.3-4.6); Glucose 202 mg/dL (65-115); Lactate Dehydrogenase 357 U/L (135-225); Osmolality Calculated 296 mOsm/kg (285-295); Potassium 4.7 mmol/L (3.5-5.1); Sodium 135 mmol/L (136-145); Total Bilirubin 0.9 mg/dL (0.15-1.2); Total Protein 6.2 g/dL (6.6-8.7)
[2024-03-03 10:01] LABS: Slide Review Slide Review Perform
[2024-03-03 10:07] LABS: Absolute Eosinophils 0.1 10^3/cmm (0.0-0.7); Absolute Segmented Neutrophil 4.9 10/cmm (1.6-7.1); Eosinophils 1 %; Lymphocytes 30 %; Lymphocytes Absolute 8.3 10^3/cmm (1.2-3.4); Monocytes Absolute 0.1 10^3/cmm (0.1-0.6); Segmented Neutrophils 34 %; Total Cells Counted 100 (0-100)
[2024-03-03 10:08] LABS: Blastocytes 7 % (0-0)
[2024-03-03 10:09] LABS: Absolute Neutrophil 4.9 10^3/cmm (1.4-6.5); Platelet Estimate Decreased (Normal)
[2024-03-03] MEDS: sodium chloride 0.9% 500 ML IV (11:09)
[2024-03-03] MEDS: methylPREDNISolone sod succ 125 mg/2 mL INJ 60 MG IVP (11:09)
[2024-03-03 12:49] LABS: Bilirubin Urine Negative (Negative); Blood Urine 3+ (Negative); Glucose Urine UA Trace (Normal); Ketones Urine Trace (Negative); Leukocyte Esterase Urine Negative (Negative); Nitrate Urine Negative (Negative); Specific Gravity, Urine 1.022 (1.005-1.030); Urine Appearance Cloudy (CLEAR); Urine Color Yellow (Yellow); pH Urine 5.5 (5-7)
[2024-03-03 12:52] LABS: Bacteria Urine None Seen /hpf; Hyaline Casts Urine 10.32 /lpf; Squamous Epithelial Cell Urine 0-5 /hpf (0-5); WBC Urine 0-5 /hpf (0-5)
[2024-03-03 13:17] LABS: Protein Urine 3+ (Negative)
[2024-03-03 13:18] LABS: Add Urine Culture? No
[2024-03-15 10:33] LABS: Hematocrit 31.5 % (37-53); Mean Corpuscular HGB Conc 31.7 g/dL (30-55); Mean Corpuscular Volume 94.6 fl (82-101); Mean Platelet Volume 9.3 fL (7.4-10.4); Platelet Count 96 10^3/cmm (157-399); Red Blood Count 3.33 10^6/uL (3.85-5.65); Red Cell Distribution Width 16.2 % (12.1-15.1); White Blood Count 17.09 10^3/uL (3.29-11.43)
[2024-03-15 10:43] LABS: Alanine Aminotransferase 7 U/L (0-41); Albumin Level 3.8 g/dL (3.5-5.2); Alkaline Phosphatase 89 U/L (40-130); Anion Gap 14.9 (5-19); Aspartate Amino Transferase 8 U/L (0-40); Blood Urea Nitrogen 46 mg/dL (8-23); Calcium 8.7 mg/dL (8.5-10.5); Carbon Dioxide 23 mmol/L (22-29); Chloride 106 mmol/L (98-107); Creatinine Clr Calc Pharmacy 26.4243; Globulin 1.9 g/dL (1.3-4.6); Glucose 157 mg/dL (65-115); Lactate Dehydrogenase 218 U/L (135-225); Osmolality Calculated 303 mOsm/kg (285-295); Potassium 4.9 mmol/L (3.5-5.1); Sodium 139 mmol/L (136-145); Total Bilirubin 0.6 mg/dL (0.15-1.2); Total Protein 5.7 g/dL (6.6-8.7)
[2024-03-15 11:34] LABS: Absolute Neutrophil 3.4 10^3/cmm (1.4-6.5); Absolute Segmented Neutrophil 3.2 10/cmm (1.6-7.1); Band Neutrophils Absolute 0.2 10^3/cmm (0.0-1.2); Eosinophils 0 %; Lymphocytes 12 %; Lymphocytes Absolute 13.5 10^3/cmm (1.2-3.4); Monocytes Absolute 0.2 10^3/cmm (0.1-0.6); Platelet Estimate Decreased (Normal); Segmented Neutrophils 19 %; Slide Review Slide Review Perform; Total Cells Counted 100 (0-100)
[2024-03-15 11:35] LABS: Macrocytosis 1+
== END 2024-03-22 23:59 | disposition home or self-care (01) ==
PROVIDERS: Nurse Practitioner Family; PCP Family Medicine; Referring Provider Internal Medicine; Visit Provider Internal Medicine Medical Oncology
DX: Z53.9 Procedure and treatment not carried out, unspecified reason; C91.10 Chronic lymphocytic leukemia of B-cell type not having achieved remission; R19.7 Diarrhea, unspecified; Z87.891 Personal history of nicotine dependence; Z79.899 Other long term (current) drug therapy
CPT/HCPCS: 36415; 80053; 81001; 83615; 85007; 85025; 96360; 96375; 99214; J2919; J7040

== ENCOUNTER 2024-03-28 12:55 | Emergency (ER) | payer OTHER, SELFPAY ==
[2024-03-28] VITALS (18 sets, daily range): BP systolic 156–199; BP diastolic 64–95; PULSE 82–112; RESP 16–18; TEMP 37.3; O2SAT 87–94; BMI 33.5
--- NOTE | 2024-03-28 13:18 | XRR_ITS ---
PROCEDURE INFORMATION: Exam: XR Chest Exam date and time: 03/28/2024 1:40 PM Age: 79 years old Clinical indication: Shortness of breath; Prior surgery; Surgery date: 6+ months; Surgery type: Cabg/pacemaker; Additional info: SOB TECHNIQUE: Imaging protocol: Radiologic exam of the chest. Views: 1 view. COMPARISON: CR XR chest 2V* [id number] 05/03/2021 5:11 PM FINDINGS: Tubes, catheters and devices: Left chest wall pacemaker with right atrial and ventricular leads. Lungs: There is patchy airspace opacity in the right mid lung field and in both lung bases concerning for possible pneumonia. Pleural spaces: No pneumothorax or pleural effusion. Heart/Mediastinum: Mild cardiomegaly. Bones/joints: Prior sternotomy. Regional osseous structures appear intact. XR/XR chest 1V portable [id number] IMPRESSION: Nonspecific patchy opacity in right midlung and both lung bases concerning for pneumonia in the appropriate clinical setting.
--- NOTE | 2024-03-28 13:19 | ECG_ITS ---
[facility] Test Date: 2024-03-28 Pat Name: Valente Renae Department: Room: Gender: Male Machine Pecan Picker: : [phone] Requested By: Kiana Cain Order Number: [id number] Cervantes MD: Orlando Juarez M.D. Measurements Intervals [place] Rate: 84 P: 1 WV: 217 QRS: -52 QRSD: 121 T: 131 QT: 368 QTc: 436 Interpretive Statements ELECTRONIC VENTRICULAR PACEMAKER ABNORMAL RHYTHM ECG Compared to ECG 01/28/2021 12:02:40 Sinus rhythm no longer present Ventricular premature complex(es) no longer present Left ventricular hypertrophy no longer present ST (T wave) deviation no longer present Myocardial infarct finding no longer present Electronically Signed On 03-28-2024 22:39:53 CDT by Orlando Juarez M.D. [id number] f
--- NOTE | 2024-03-28 13:25 | W.ED.SOB ---
HPI - SOB/Dyspnea General: Chief Complaint: Shortness of Breath/Dyspnea Stated Complaint: SOB, vomit/burping Time Seen by Provider: 03/28/24 13:14 History of Present Illness: HPI Narrative: 79-year-old man with a CLL, and history of coronary artery disease status post stents and CABG, diabetes, pacemaker placement, Chronic kidney disease, hyperlipidemia and BPH who presents emergency room with cough and shortness of breath. Today he has developed some hemoptysis/blood-tinged sputum. He says he been sick for almost 2 weeks now. Recently taken off of his Plavix because he was having some hematuria. No fevers. Temp is 99.1 here. He also complains of worsening swelling in his lower extremities. No orthopnea. Related Data Home Medications Medication Instructions Recorded Confirmed nitroglycerin 0.4 mg sublingual 0.4 mg sublingual Q5M PRN Chest 11/22/19 03/15/24 tablet (Nitrostat) Pain docusate sodium 100 mg capsule 100 mg PO BID PRN Constipation 12/02/19 03/15/24 (Colace) cholecalciferol (vitamin D3) 25 50 mcg PO DAILY 12/14/20 03/15/24 mcg (1,000 unit) capsule atorvastatin 10 mg tablet 10 mg PO DAILY@18 03/02/21 03/15/24 magnesium oxide 400 mg PO DAILY 03/02/21 03/15/24 acetaminophen 500 mg tablet 1,000 mg PO Q4H PRN Pain 05/02/21 03/15/24 aspirin 81 mg tablet,delayed 81 mg PO QAM 05/02/21 03/15/24 release diclofenac sodium 1 % topical gel 4 g topical QID PRN Pain 05/02/21 03/15/24 insulin regular human 100 unit/mL See Rx Instructions .Route 05/02/21 03/15/24 injection solution (Novolin R .COMPLEX see pharmacy comments Regular U-100 Insulin) loratadine 10 mg tablet (Claritin) 10 mg PO DAILY 05/02/21 03/15/24 tamsulosin 0.4 mg capsule 0.4 mg PO DAILY 10/18/21 03/15/24 sodium zirconium cyclosilicate 10 10 g PO .every other day 04/24/22 03/15/24 gram oral powder packet (Lokelma) fluticasone propionate 50 2 spray intranasal DAILY 07/16/22 03/15/24 mcg/actuation nasal spray,suspension (Flonase Allergy Relief) clonidine HCl 0.1 mg tablet 0.1 mg PO TID 11/20/22 03/15/24 finasteride 5 mg tablet 5 mg PO DAILY 11/20/22 03/15/24 insulin glargine 100 unit/mL (3 35 unit SUBCUT QAM 11/20/22 03/15/24 mL) subcutaneous pen nifedipine 60 mg tablet,extended 60 mg PO DAILY 11/20/22 03/15/24 release omega 3-fca-aip-fish oil 1,000 mg 1 cap PO BID 11/20/22 03/15/24 (120 mg-180 mg) capsule (Fish Oil) Previous Rx's Medication Instructions Recorded clopidogrel 75 mg tablet 75 mg PO DAILY #90 tabs 09/17/21 zanubrutinib 80 mg capsule 160 mg (2 x 80 mg) PO BID 30 days 04/22/23 #120 caps isosorbide mononitrate 120 mg 120 mg PO DAILY #90 tabs 09/25/23 tablet,extended release 24 hr metoprolol tartrate 25 mg tablet 25 mg PO BID #180 tabs 11/13/23 furosemide 40 mg tablet See Rx Instructions .Route 02/10/24 .COMPLEX #30 tabs Allergies Allergy/AdvReac Type Severity Reaction Status Date / Time allopurinol Allergy ALGY-Rash Verified 03/15/24 11:37 Iodinated Contrast Media Allergy ALGY-Hives Verified 03/15/24 11:37 levofloxacin [From Levaquin] Allergy ADR-Confusi Verified 03/15/24 11:37 on metformin Allergy ADR-Fatigue Verified 03/15/24 11:37 d Review of Systems Narrative: Constitutional symptoms: Negative except as documented in HPI. Skin symptoms: Negative except as documented in HPI. Eye symptoms: Negative except as documented in HPI. ENMT symptoms: Negative except as documented in HPI. Respiratory symptoms: Negative except as documented in HPI. Cardiovascular symptoms: Negative except as documented in HPI. Gastrointestinal symptoms: Negative except as documented in HPI. Genitourinary symptoms: Negative except as documented in HPI. Musculoskeletal symptoms: Negative except as documented in HPI. Neurologic symptoms: Negative except as documented in HPI. Psychiatric symptoms: Negative except as documented in HPI. Endocrine symptoms: Negative except as documented in HPI. PFSH ED PFSH: Medical History Hyperuricemia History of COVID-19 (~12/2020) Anemia, unspecified Complex renal cyst BPH loc w urin obs/LUTS Diabetes HTN (hypertension) ASHD (arteriosclerotic heart disease) Dyslipidemia CKD (chronic kidney disease) CLL (chronic lymphocytic leukemia) Carotid stenosis, bilateral Surgical History H/O removal of testicle S/P appendectomy S/P CABG (coronary artery bypass graft) S/P PTCA (percutaneous transluminal coronary angioplasty) Status cardiac pacemaker Family History Mother , in her 70's Diabetes CAD (coronary artery disease) Father , at age 69 CAD (coronary artery disease) Hypertension Other Cancer Chronic kidney disease (CKD) Stroke Suicide Denies family history of Clotting disorder Dementia Hyperlipidemia Psychiatric illness Anesthesia complication Bleeding disorder Lung disease Social History Smoking and tobacco/nicotine status: former use of tobacco/nicotine Quit status (tobacco/nicotine): has quit using Year quit tobacco: 1989 Alcohol intake: never Substance/Drug Use: never Household members: spouse Marital status: Current occupational status: retired Physical Exam Narrative: EXAM NARRATIVE: General: Alert, no acute distress. Skin: Warm, dry. Head: Normocephalic, atraumatic. Neck: Supple, trachea midline. Eye: Extraocular movements are intact. Ears, nose, mouth and throat: mucosa moist. Cardiovascular: Regular, Normal peripheral perfusion. 1-2+ tibial edema Respiratory: Lungs are clear to auscultation, respirations are non-labored, breath sounds are equal, Symmetrical chest wall expansion. Gastrointestinal: Soft, Nontender, Non distended Musculoskeletal: Normal ROM, no deformity. Neurological: Alert and oriented, No focal neurological deficit observed. Psychiatric: Cooperative, appropriate mood & affect. Course Vital Signs: Vital signs: Vital Signs Temperature 99.1 F 03/28/24 13:07 Pulse Rate 82 03/28/24 13:07 Respiratory Rate 18 03/28/24 13:07 Blood Pressure 177/72 03/28/24 13:07 Pulse Oximetry 93 03/28/24 13:07 Oxygen Delivery Me thod Room Air 03/28/24 13:07 MDM - SOB/Dyspnea Medical Decision Making Differential diagnosis for patient with shortness of breath includes but is not limited to and based on the above HPI, review of systems and physical exam: Pneumonia. Bronchitis. Asthma or COPD with acute exacerbation. Acute coronary syndrome / NC. Pulmonary embolism. Anxiety. Congestive heart failure. Viral infections including influenza and Covid-19. Atrial fibrillation. Anxiety. Pleural effusion. Pneumothorax. Orders placed to evaluate differential diagnosis based on the above differential, HPI and physical exam Chest x-ray: There is an apparent infiltrate in the right middle lobe. This appears to be a pneumonia. Films were interpreted by myself the emergency room provider and pending final radiology review. CT of the chest without contrast: This was ordered secondary to the abnormal chest x-ray. This again looks consistent with a pneumonia. As does the clinical picture with a temp of 99 1. Cough, hemoptysis. Films were interpreted by myself the emergency room provider and pending final radiology review. Lab Review: Laboratory results were reviewed and interpreted by myself the emergency room physician. White count is 4.4. This is low for the patient. He has not been receiving treatment for over a year for CLL. Hemoglobin is stable at 10.5. Platelets are low and stable at 98. . This is consistent with previous measurements. BUN and creatinine are 38 and 3.2 which is at or near his baseline. Troponin is elevated at 236. proBNP is elevated at 13 567. This is above his baseline. Lactic acid is mildly elevated at 5.4. I reviewed the patient's medical record. Consultation: I spoke with Dr. Vasquez who is on-call for the hospitalist service who agrees to admission. Reexamination: Patient remained stable. No increased work of breathing. No altered mental status. No focal motor deficits. Patient is not currently requiring oxygen. Assessment and plan: Pneumonia Hemoptysis Chronic kidney disease Elevated troponin History of coronary artery disease Edema ?Given kidney disease and severity of illness I am treating the patient initially with broad-spectrum antibiotics that are nonnephrotoxic. IV meropenem and Zyvox are being given. He has some swelling in his legs but I am not quite confident with him having a pneumonia that giving diuretics at this point are the best idea I will defer this to the hospitalist. -I discussed the patient with the hospitalist on-call who is admitting the patient. - Discussed findings and plan with patient. Answered any questions. - All laboratory values were reviewed and interpreted personally by myself, the ER physician - All imaging was reviewed and interpreted personally by myself, the ER physician. - Evaluation and treatment of this problem were appropriate in the emergency setting Lab Data 03/28/24 13:36 03/28/24 13:36 Labs/Radiology: Laboratory Results WBC 4.37 10^3/uL (3.29-11.43) 03/28/24 13:36 RBC 3.50 10^6/uL (3.85-5.65) L 03/28/24 13:36 Hgb 10.50 g/dL (11.27-16.99) L 03/28/24 13:36 Hct 34.1 % (37-53) L 03/28/24 13:36 MCV 97.4 fl (82-101) 03/28/24 13:36 MCH 30.0 pg (27-33) 03/28/24 13:36 MCHC 30.8 g/dL (30-55) 03/28/24 13:36 RDW 16.9 % (12.1-15.1) H 03/28/24 13:36 Plt Count 98 10^3/cmm (157-399) L 03/28/24 13:36 MPV 9.8 fL (7.4-10.4) 03/28/24 13:36 Neut % (Auto) 64.9 % 03/28/24 13:36 Lymph % (Auto) 32.3 % 03/28/24 13:36 [place] % (Auto) 0.7 % 03/28/24 13:36 Eos % (Auto) 1.4 % 03/28/24 13:36 Baso % (Auto) 0.5 % 03/28/24 13:36 Neut # (Auto) 2.84 10^3/uL (1.8-7.7) 03/28/24 13:36 Lymph # (Auto) 1.4 10^3/uL (0.8-4.8) 03/28/24 13:36 [place] # (Auto) 0.0 10^3/uL (0.2-0.9) L 03/28/24 13:36 Eos # (Auto) 0.1 10^3/uL (0.0-0.8) 03/28/24 13:36 Baso # (Auto) 0.0 10^3/uL (0.0-0.1) 03/28/24 13:36 Nucleated RBC % (auto) 0 % 03/28/24 13:36 Nucleated RBCs # 0.0 /100WBC 03/28/24 13:36 PT 14.90 SECONDS (12.1-14.9) 03/28/24 13:36 INR 1.13 (0.8-1.2) 03/28/24 13:36 APTT 28.0 SECONDS (23.9-36.7) 03/28/24 13:36 Sodium 137 mmol/L (136-145) 03/28/24 13:36 Potassium 5.0 mmol/L (3.5-5.1) 03/28/24 13:36 Chloride 103 mmol/L (98-107) 03/28/24 13:36 Carbon Dioxide 19 mmol/L (22-29) L 03/28/24 13:36 Anion Gap 20.0 (5-19) H 03/28/24 13:36 BUN 38 mg/dL (8-23) H 03/28/24 13:36 Creatinine 3.2 mg/dL (0.7-1.2) H 03/28/24 13:36 GFR Calculation Not Reportable 03/28/24 13:36 Glucose 170 mg/dL (65-115) H 03/28/24 13:36 Calculated Osmolality 297 mOsm/kg (285-295) H 03/28/24 13:36 Lactic Acid 2.4 mmol/L (0.5-2.2) H 03/28/24 13:36 Calcium 8.5 mg/dL (8.5-10.5) 03/28/24 13:36 Total Bilirubin 1.1 mg/dL (0.15-1.2) 03/28/24 13:36 AST 11 U/L (0-40) 03/28/24 13:36 ALT 7 U/L (0-41) 03/28/24 13:36 Alkaline Phosphatase 100 U/L (40-130) 03/28/24 13:36 Troponin T Baseline 236 ng/L (0-15) H* 03/28/24 13:36 C-Reactive Protein 3.0 mg/L (0.0-4.9) 03/28/24 13:36 NT-Pro-B Natriuret Pep 62862 pg/mL (0-450) H 03/28/24 13:36 Total Protein 5.8 g/dL (6.6-8.7) L 03/28/24 13:36 Albumin 4.1 g/dL (3.5-5.2) 03/28/24 13:36 Globulin 1.7 g/dL (1.3-4.6) 03/28/24 13:36 Procalcitonin 0.17 ng/mL (0-0.5) 03/28/24 13:36 XR interpretation done by ED provider, pending radiology final review Discharge Plan Discharge Patient Disposition: Admitted As Inpatient Clinical Impression: Pneumonia, Chronic kidney disease, Elevated troponin, Hemoptysis, Edema Condition: Stable Coding Level of Care Code ED Customer Engagement Representative for Jordin oMreno
[2024-03-28 13:47] LABS: Basophils % 0.5 %; Eosinophils # 0.1 10^3/uL (0.0-0.8); Eosinophils % 1.4 %; Hematocrit 34.1 % (37-53); Lymphocytes # 1.4 10^3/uL (0.8-4.8); Lymphocytes % 32.3 %; Mean Corpuscular HGB Conc 30.8 g/dL (30-55); Mean Corpuscular Volume 97.4 fl (82-101); Mean Platelet Volume 9.8 fL (7.4-10.4); Monocytes % 0.7 %; Neutrophils # 2.84 10^3/uL (1.8-7.7); Neutrophils % 64.9 %; Nucleated Red Blood Cells % 0 %; Platelet Count 98 10^3/cmm (157-399); Red Cell Distribution Width 16.9 % (12.1-15.1); White Blood Count 4.37 10^3/uL (3.29-11.43)
[2024-03-28 14:02] LABS: INR 1.13 (0.8-1.2)
[2024-03-28 14:12] LABS: Lactic Sepsis W/Reflex 2.4 mmol/L (0.5-2.2); Troponin(5th) Baseline 236 ng/L (0-15)
--- NOTE | 2024-03-28 14:12 | CTR_ITS ---
PROCEDURE INFORMATION: Exam: CT Chest Without Contrast; Diagnostic Exam date and time: 03/28/2024 2:30 PM Age: 79 years old Clinical indication: Cough and shortness of breath; Prior surgery; Surgery date: 6+ months; Surgery type: Heart/ pacer; Additional info: Abnormal chest xray TECHNIQUE: Imaging protocol: Diagnostic computed tomography of the chest without contrast. Radiation optimization: All CT scans at this facility use at least one of these dose optimization techniques: automated exposure control; mA and/or kV adjustment per patient size (includes targeted exams where dose is matched to clinical indication); or iterative reconstruction. COMPARISON: [place] [id number] 05/03/2021 9:43 AM RADIATION DOSE METRICS: Total DLP (mGy-cm): 639.87 FINDINGS: Tubes, catheters and devices: Left chest wall pacemaker with right atrial and ventricular leads. Lungs: Mediastinal and hilar granulomatous calcifications are present. Within the left upper lobe there is a pulmonary nodule measuring approximately 1.2 cm (image 18, series 3). This appears mildly increased from remote prior comparison of 05/03/2021. Patchy airspace disease bilaterally most severe in the right upper lobe. Pleural spaces: Small bilateral pleural effusions. No pneumothorax. Heart: Normal size of the heart. No pericardial effusion. Postsurgical changes from prior CABG. Coronary artery atherosclerosis is present. Lymph nodes: Scattered mediastinal lymph nodes without significant change from remote prior comparison. Vasculature: Aortic atherosclerosis without aneurysm. Kidneys: Partially imaged exophytic mass from the right kidney with central hypodensity, peripheral increased density and calcifications which is incompletely visualized measuring at least 6.4 cm in size. Cholelithiasis is present. Splenomegaly and granulomatous calcifications in the liver and spleen. Upper abdominal structures are otherwise unremarkable. Bones/joints: Prior sternotomy. Mild scattered degenerative changes of the visualized spine. No aggressive osseous lesion or fracture is seen. Soft tissues: The visualized superficial soft tissues have a normal appearance. CT/CT chest wo con [id number] IMPRESSION: 1. Patchy airspace disease bilaterally most severe in the right upper lobe concerning for pneumonia. Small bilateral pleural effusions. 2. 1.2 cm left upper lobe pulmonary nodule mildly increased in size from prior. Consider non-emergent PET/CT or tissue sampling.(Reference: Violeta)References: MacMahon H, et al. Guidelines for Management of Incidental Pulmonary Nodules Detected on CT Images: From the Fleischner Society 2017. Radiology. 2017;284(1):228-243. 3. Large 6.4 cm partially imaged exophytic mass from the right kidney without significant change from remote prior comparisons. Findings concerning for possible renal malignancy. This could also be evaluated on above mentioned recommended PET-CT.
[2024-03-28 14:15] LABS: NT Pro B Type Natriuretic Pept 13567 pg/mL (0-450); Procalcitonin 0.17 ng/mL (0-0.5)
[2024-03-28 14:26] LABS: Alanine Aminotransferase 7 U/L (0-41); Albumin Level 4.1 g/dL (3.5-5.2); Alkaline Phosphatase 100 U/L (40-130); Aspartate Amino Transferase 11 U/L (0-40); Blood Urea Nitrogen 38 mg/dL (8-23); Calcium 8.5 mg/dL (8.5-10.5); Carbon Dioxide 19 mmol/L (22-29); Chloride 103 mmol/L (98-107); Creatinine Clr Calc Pharmacy 23.1054; Globulin 1.7 g/dL (1.3-4.6); Glucose 170 mg/dL (65-115); Osmolality Calculated 297 mOsm/kg (285-295); Sodium 137 mmol/L (136-145); Total Bilirubin 1.1 mg/dL (0.15-1.2); Total Protein 5.8 g/dL (6.6-8.7)
[2024-03-28] MEDS: linezolid premix 600 MG/300 ML PREMIX 300 MG IV (14:48)
[2024-03-28] MEDS: meropenem 500 mg SDV IVP (14:48)
[2024-03-28 15:31] LABS: Reflex Lactate Order REFLEX LACTIC ORDERD
--- NOTE | 2024-03-28 15:35 | ECG_ITS ---
[facility] Test Date: 2024-03-28 Pat Name: Valente Renae Department: Room: Gender: Male Services Advisor: : 1945 Requested By: Kiana Cain Order Number: [id number] Helen MD: Orlando Juarez M.D. Measurements Intervals [place] Rate: 85 P: -12 TN: 192 QRS: -54 QRSD: 134 T: 123 QT: 381 QTc: 455 Interpretive Statements ELECTRONIC VENTRICULAR PACEMAKER ABNORMAL RHYTHM ECG Compared to ECG 03/28/2024 12:59:46 No significant changes Electronically Signed On 03-28-2024 22:58:26 CDT by Orlando Juarez M.D. [id number]
[2024-03-28 16:14] LABS: D Dimer 2.54 ug/mLFEU (0-0.59)
[2024-03-28 16:16] LABS: Estmated Average Glucose 154
[2024-03-28 16:19] LABS: ABG PCO2 28.3 mmHg (35-45); Blood Gas Allen Test Pos; Blood Gas Operator Identificat CAK; Blood Gas Sample Site Radial, left; Blood Gas Sample Type Arterial; HCO3 ABG 17.7 mmol/L (22-26); Oxygen Device ROOM AIR; PO2 ABG 58.2 mmHg (80.0-100.0); PO2 FiO2 Ratio Arterial Blood 277
[2024-03-28 16:20] LABS: Creatine Phosphokinase 165 U/L (39-308); Ferritin 148 ng/mL (30-400); Iron 37 ug/dL (59-158)
[2024-03-28 17:08] LABS: Lactic Acid level (Lactate) 3.4 mmol/L (0.5-2.2)
[2024-03-28 17:09] LABS: Troponin 5 2HR 287.1 ng/L (0-15); Troponin 5 2HR Delta 51.1 ABS# (0-10)
--- NOTE | 2024-03-28 17:14 | P.HP_ITS ---
Providers/Chief Complaint 2 Admitting Physician: Trentno Munson MD Primary Care Provider: Paula Sandoval MD Chief Complaint: SOB, vomit/burping History of Present Illness Valente Renae is a 79 year old male past medical history of CAD status post 8 stents, history of CABG, hypertension, sick sinus syndrome status post pacemaker placement, dyslipidemia, CKD, CLL, diabetes, carotid artery disease, type 2 diabetes mellitus who presents to [facility] due to a 3-week history of progressive shortness of breath, shortness of breath with exertion, with productive cough now with hemoptysis. Currently patient is alert oriented x 3, following all commands, he is a bit drowsy falls asleep, but can answer most questions appropriately, family members at bedside. 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 a few days ago, his last stent was placed over a year ago, patient has been taking Plavix in the last few days but continues to have hemoptysis, during my discussion he continues to have cough in episode, he has had several episodes of hemoptysis in the ER, denies feeling lightheaded, denies feeling dizzy, currently he tells me that his cough is quite dry, he denies any active chest pain but is sitting up in bed, feeling short of breath, complaining of orthopnea, will have the nursing staff placing a Beckham catheter, and given 40 mg of IV Lasix -I had a detailed discussion with patient's family that I am worried given his elevated troponins, about his risk of NSTEMI,, especially as his Plavix was held, and he has a history of CABG and history of CAD history of stenting, I think likely what is going on is that he has acute hypoxic respiratory failure secondary to pneumonia, CHF, fluid overload, which is causing the NSTEMI, however as his Plavix was stopped, he has a history of multiple stents, CABG there is a high risk that he might be having a coronary event in addition to everything going on as above, and for that usually I would have to put him back on his Plavix, and start him on heparin but with his persistent hemoptysis, he would have a significant risk of bleeding here at [facility] without pulmonary backup, and morbidity or mortality associated, but I advised family that let me watch his troponin and see if hopefully the trend is going downwards that I would feel more comfortable holding off on anticoagulant therapy and watching his troponins, right now his EKG does not show any acute ST-T wave changes and he does not have any chest pain -Patient's troponin has come back it is 287 with a delta of 51.1 -I spoke to patient and his family, as his troponins continue to trend upwards, he complains of shortness of breath, he sitting up beside the bed I am worried that his NSTEMI is more significant, and he needs to be anticoagulated, as there might be underlying coronary artery that might be under stress given his respiratory failure, his pneumonia, his CHF and fluid overload his SHAYLA. So I would recommend for him to be placed on full dose anticoagulant therapy, and aspirin, statin, Plavix. But with his hemoptysis and persistent hemoptysis even here in the emergency room this poses a significant risk of morbidity and mortality, and without having pulmonary backup and the ability to do a bronchoscopy and arteriography, and ablative measures. I would recommend patient to be transferred to tertiary level center which has pulmonary, and the specialist to take care of the patient's needs, patient voiced understanding, all questions answered, spoke to patient's family, they are agreeable to transfer -Spoke to ER provider, would recommend transfer given the complex issues that his medical care entails, the need for specialist, that are not available here at [facility] Review of Systems 2 Const: Reports: body aches, fatigue and malaise; Denies: fever(s) Card: Denies: chest pain Resp: Reports: dyspnea GI: Denies: abdominal pain Medications/Allergies Home Medications Medication Instructions Recorded Confirmed Last Taken Type nitroglycerin 0.4 mg sublingual 0.4 mg sublingual Q5M PRN Chest 11/22/19 03/15/24 Unknown History tablet (Nitrostat) Pain docusate sodium 100 mg capsule 100 mg PO BID PRN Constipation 12/02/19 03/15/24 04/30/20 History (Colace) cholecalciferol (vitamin D3) 25 50 mcg PO DAILY 0603/15/24 01/27/21 History mcg (1,000 unit) capsule atorvastatin 10 mg tablet 10 mg PO DAILY@18 03/02/21 03/15/24 Unknown History magnesium oxide 400 mg PO DAILY 03/02/21 03/15/24 Unknown History acetaminophen 500 mg tablet 1,000 mg PO Q4H PRN Pain 05/02/21 03/15/24 Unknown History aspirin 81 mg tablet,delayed 81 mg PO QAM 05/02/21 03/15/24 Unknown History release diclofenac sodium 1 % topical gel 4 g topical QID PRN Pain 05/02/21 03/15/24 Unknown History insulin regular human 100 unit/mL See Rx Instructions .Route 05/02/21 03/15/24 Unknown History injection solution (Novolin R .COMPLEX see pharmacy comments Regular U-100 Insulin) loratadine 10 mg tablet (Claritin) 10 mg PO DAILY 05/02/21 03/15/24 Unknown History clopidogrel 75 mg tablet 75 mg PO DAILY #90 tabs 09/17/21 03/15/24 Unknown Rx tamsulosin 0.4 mg capsule 0.4 mg PO DAILY 10/18/21 03/15/24 Unknown History sodium zirconium cyclosilicate 10 10 g PO .every other day 04/24/22 03/15/24 Unknown History gram oral powder packet (Lokelma) fluticasone propionate 50 2 spray intranasal DAILY 07/16/22 03/15/24 Unknown History mcg/actuation nasal spray,suspension (Flonase Allergy Relief) clonidine HCl 0.1 mg tablet 0.1 mg PO TID 11/20/22 03/15/24 Unknown History finasteride 5 mg tablet 5 mg PO DAILY 11/20/22 03/15/24 Unknown History insulin glargine 100 unit/mL (3 35 unit SUBCUT QAM 11/20/22 03/15/24 Unknown History mL) subcutaneous pen nifedipine 60 mg tablet,extended 60 mg PO DAILY 11/20/22 03/15/24 Unknown History release omega 8-nzj-xtf-fish oil 1,000 mg 1 cap PO BID 11/20/22 03/15/24 Unknown History (120 mg-180 mg) capsule (Fish Oil) zanubrutinib 80 mg capsule 160 mg (2 x 80 mg) PO BID 30 days 04/22/23 03/15/24 Unknown Rx #120 caps isosorbide mononitrate 120 mg 120 mg PO DAILY #90 tabs 09/25/23 03/15/24 Unknown Rx tablet,extended release 24 hr metoprolol tartrate 25 mg tablet 25 mg PO BID #180 tabs 11/13/23 03/15/24 Unknown Rx furosemide 40 mg tablet See Rx Instructions .Route 02/10/24 03/15/24 Unknown Rx .COMPLEX #30 tabs Allergies Allergy/AdvReac Type Severity Reaction Status Date / Time allopurinol Allergy ALGY-Rash Verified 03/15/24 11:37 Iodinated Contrast Media Allergy ALGY-Hives Verified 03/15/24 11:37 levofloxacin [From Levaquin] Allergy ADR-Confusi Verified 03/15/24 11:37 on metformin Allergy ADR-Fatigue Verified 03/15/24 11:37 d PFSH Acute 2 PFSH: Medical History Hyperuricemia History of COVID-19 (~12/2020) Anemia, unspecified Complex renal cyst BPH loc w urin obs/LUTS Diabetes HTN (hypertension) ASHD (arteriosclerotic heart disease) Dyslipidemia CKD (chronic kidney disease) CLL (chronic lymphocytic leukemia) Carotid stenosis, bilateral Surgical History H/O removal of testicle S/P appendectomy S/P CABG (coronary artery bypass graft) S/P PTCA (percutaneous transluminal coronary angioplasty) Status cardiac pacemaker Family History Mother , in her 70's Diabetes CAD (coronary artery disease) Father , at age 69 CAD (coronary artery disease) Hypertension Other Cancer Chronic kidney disease (CKD) Stroke Suicide Denies family history of Clotting disorder Dementia Hyperlipidemia Psychiatric illness Anesthesia complication Bleeding disorder Lung disease Social History Smoking and tobacco/nicotine status: former use of tobacco/nicotine Quit status (tobacco/nicotine): has quit using Year quit tobacco: 1989 Alcohol intake: never Substance/Drug Use: never Household members: spouse Marital status: Current occupational status: retired Vitals/I&O/Wt Last Vital Signs Temp 99.1 F 03/28/24 13:07 Pulse 82 03/28/24 13:07 Resp 18 03/28/24 13:07 BP 177/72 03/28/24 13:07 Pulse Ox 93 03/28/24 13:07 O2 Del Method Room Air 03/28/24 13:07 Weight last 48 hrs Weight 108.862 kg Physical Exam 2 Const: COMMON NORMALS: no acute distress and patient oriented x3 HENMT: COMMON NORMALS: normocephalic HEAD & SCALP: normocephalic Eye: COMMON NORMALS: Equal, round and reactive pupils present Neck/C-Spine: COMMON NORMALS: no JVD Resp: COMMON NORMALS: No retractions and No use of accessory muscles A USCULTATION: crackles and wheezes OTHER: Tachypnea Cardio: COMMON NORMALS: regular rate, regular rhythm, S1 normal heart sound present and S2 normal heart sound present RATE: regular rate RHYTHM: r egular rhythm HEART SOUNDS: S1 normal heart sound present and S2 normal heart sound present GI: COMMON NORMALS: Normal to inspection, nondistended, normoactive bowel sounds present, Soft to palpation and non-tender Extremity: COMMON NORMALS: no calf tenderness NARRATIVE EXTREMITY EXAM: 2+ pitting edema Neuro: COMMON NORMALS: patient oriented x3, CN's II-XII intact bilaterally, moves all extremities and no focal motor deficits Psych: COMMON NORMALS: mental status grossly normal Data 03/28/24 13:36 03/28/24 13:36 Micro: Microbiology 03/28/24 13:36 Blood Culture - Preliminary Blood SPECIMEN COLLECTED 03/28/24 13:36 Blood Culture - Preliminary Blood SPECIMEN COLLECTED A&P Assessment and plan (1) Acute hypoxic respiratory failure: (2) Anemia: (3) Elevated troponin: (4) Thrombocytopenia: (5) Pneumonia: (6) Hemoptysis: Plan Acute hypoxic respiratory failure, multifactorial from pneumonia, fluid overload, pulm edema, CHF -With underlying hemoptysis, persistent -Needs IV antibiotic therapy continue Zyvox, meropenem -Place Beckham catheter give 40 mg IV Lasix -Monitor respiratory status closely -Placed on scheduled cough suppressants Tessalon Perles 200 3 times daily -Given NSTEMI, troponin 287, delta 51.1, recommend starting him back on aspirin, Plavix starting heparin drip with pulmonary backup -Monitor respiratory status closely Venous ultrasound ordered for DVT Cardiac echo ordered ? Would recommend transfer to tertiary level center for complexity of medical issues, hemoptysis, need for anticoagulant therapy, need for pulmonary evaluation, need for multidisciplinary team CODE STATUS patient is DNR/DNI SCDs for DVT prophylaxis for now Attestations 2 Medical Necessity Statement*: Patient will be transferred to tertiary [facility] Diagnoses Acute hypoxic respiratory failure J96.01 Anemia D64.9 Elevated troponin R77.8 Thrombocytopenia D69.6 Pneumonia J18.9 Hemoptysis R04.2
[2024-03-28 17:34] LABS: Glucose Point of Care 184 mg/dL (70-110)
[2024-03-28 17:38] LABS: Covid PCR NEGATIVE (Negative); Influenza A NEGATIVE (Negative); Influenza B NEGATIVE (Negative); Respiratory Syncytial Virus Ce NEGATIVE (Negative)
--- NOTE | 2024-03-28 18:25 | ECG_ITS ---
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 Measurements Intervals [place] Rate: 83 P: -9 [place]: 224 QRS: -29 QRSD: 132 T: 148 QT: 387 QTc: 457 Interpretive Statements ELECTRONIC VENTRICULAR PACEMAKER ABNORMAL RHYTHM ECG Compared to ECG 03/28/2024 15:35:14 No significant changes Electronically Signed On 03-28-2024 23:06:47 CDT by Orlando Juarez M.D. [id number]
[2024-03-28] MEDS: FUROsemide 10 mg/mL SDV 4mL 40 MG IVP (19:28)
[2024-03-28 20:13] LABS: Troponin 5 6HR 302.9 ng/L (0-15); Troponin 5 6HR Delta 66.9 ng/L (0-12)
--- NOTE | 2024-03-28 20:49 | PC.NURSE ---
this nurse assumed pt care at 2044.
[2024-03-28] MEDS: ondansetron 2 mg/ML SDV 2 mL 4 MG IVP (22:00)
== END 2024-03-28 22:21 | disposition short-term general hospital (02) ==
PROVIDERS: Family Medicine; Emergency Provider Emergency Medicine; PCP Family Medicine
DX: J18.9 Pneumonia, unspecified organism (principal); R04.2 Hemoptysis; R60.0 Localized edema; R79.89 Other specified abnormal findings of blood chemistry; E11.22 Type 2 diabetes mellitus with diabetic chronic kidney disease; I12.9 Hypertensive chronic kidney disease with stage 1 through stage 4 chronic kidney disease, or unspecified chronic kidney disease; N18.9 Chronic kidney disease, unspecified; E78.5 Hyperlipidemia, unspecified; Z85.6 Personal history of leukemia; Z95.1 Presence of aortocoronary bypass graft; Z98.61 Coronary angioplasty status; Z95.0 Presence of cardiac pacemaker
CPT/HCPCS: 0241U; 36415; 36416; 36600; 51702; 71045; 71250; 80053; 82550; 82728; 82803; 82962; 83036; 83540; 83605; 83880; 84145; 84484; 85025; 85378; 85610; 85730; 86140; 87040; 93005; 96365; 96366; 96375; 99285; J1940; J2020; J2185; J2405

== ENCOUNTER 2024-04-21 08:21 | Oncology outpatient (recurring) (ONCR) | payer OTHER, SELFPAY ==
[2024-04-21 09:19] LABS: Hematocrit 30.7 % (37-53); Mean Corpuscular HGB Conc 30.6 g/dL (30-55); Mean Corpuscular Hemoglobin 30.3 pg (27-33); Mean Platelet Volume 9.2 fL (7.4-10.4); Platelet Count 104 10^3/cmm (157-399); Red Cell Distribution Width 18.1 % (12.1-15.1)
[2024-04-21 09:35] LABS: Alanine Aminotransferase 17 U/L (0-41); Albumin Level 4.1 g/dL (3.5-5.2); Alkaline Phosphatase 90 U/L (40-130); Anion Gap 13.3 (5-19); Aspartate Amino Transferase 19 U/L (0-40); Blood Urea Nitrogen 18 mg/dL (8-23); Calcium 8.6 mg/dL (8.5-10.5); Carbon Dioxide 31 mmol/L (22-29); Chloride 100 mmol/L (98-107); Globulin 1.8 g/dL (1.3-4.6); Glucose 154 mg/dL (65-115); Lactate Dehydrogenase 220 U/L (135-225); Osmolality Calculated 295 mOsm/kg (285-295); Potassium 4.3 mmol/L (3.5-5.1); Sodium 140 mmol/L (136-145); Total Bilirubin 0.6 mg/dL (0.15-1.2); Total Protein 5.9 g/dL (6.6-8.7)
[2024-04-21 09:52] LABS: White Blood Count 38.57 10^3/uL (3.29-11.43)
[2024-04-21 09:55] LABS: Absolute Eosinophils 0.4 10^3/cmm (0.0-0.7); Absolute Segmented Neutrophil 1.9 10/cmm (1.6-7.1); Eosinophils 1 %; Lymphocytes 79 %; Lymphocytes Absolute 36.3 10^3/cmm (1.2-3.4); Segmented Neutrophils 5 %; Slide Review Slide Review Perform; Total Cells Counted 100 (0-100)
[2024-04-21 09:56] LABS: Absolute Neutrophil 1.9 10^3/cmm (1.4-6.5); Anisocytosis 2+; Macrocytosis 1+; Platelet Estimate Decreased (Normal)
== END 2024-04-22 23:59 | disposition home or self-care (01) ==
PROVIDERS: PCP Family Medicine; Referring Provider Internal Medicine; Visit Provider Internal Medicine Medical Oncology
DX: Z53.9 Procedure and treatment not carried out, unspecified reason (principal); C91.10 Chronic lymphocytic leukemia of B-cell type not having achieved remission; R19.7 Diarrhea, unspecified; Z87.891 Personal history of nicotine dependence; Z79.899 Other long term (current) drug therapy
CPT/HCPCS: 36415; 80053; 83615; 85007; 85025; 99213

== ENCOUNTER 2024-05-12 08:41 | Oncology outpatient (recurring) (ONCR) | payer OTHER, SELFPAY ==
[2024-05-12 08:58] LABS: Eosinophils # 0.3 10^3/uL (0.0-0.8); Eosinophils % 0.6 %; Hematocrit 34.8 % (37-53); Lymphocytes # 48.1 10^3/uL (0.8-4.8); Mean Corpuscular HGB Conc 32.5 g/dL (30-55); Mean Corpuscular Hemoglobin 32.2 pg (27-33); Mean Corpuscular Volume 99.1 fl (82-101); Monocytes # 0.3 10^3/uL (0.2-0.9); Monocytes % 0.6 %; Neutrophils % 3.7 %; Nucleated Red Blood Cells % 0 %; Platelet Count 86 10^3/cmm (157-399); Red Blood Count 3.51 10^6/uL (3.85-5.65); Red Cell Distribution Width 16.9 % (12.1-15.1)
[2024-05-12 09:17] LABS: Alanine Aminotransferase 11 U/L (0-41); Albumin Level 4.3 g/dL (3.5-5.2); Alkaline Phosphatase 92 U/L (40-130); Anion Gap 14.3 (5-19); Aspartate Amino Transferase 13 U/L (0-40); Blood Urea Nitrogen 30 mg/dL (8-23); Calcium 8.7 mg/dL (8.5-10.5); Carbon Dioxide 30 mmol/L (22-29); Chloride 97 mmol/L (98-107); Creatinine Clr Calc Pharmacy 27.4136; Glucose 154 mg/dL (65-115); Lactate Dehydrogenase 210 U/L (135-225); Osmolality Calculated 293 mOsm/kg (285-295); Potassium 4.3 mmol/L (3.5-5.1); Sodium 137 mmol/L (136-145); Total Bilirubin 0.8 mg/dL (0.15-1.2); Total Protein 6.3 g/dL (6.6-8.7)
[2024-05-12 09:21] LABS: White Blood Count 50.66 10^3/uL (3.29-11.43)
== END 2024-05-22 23:59 | disposition home or self-care (01) ==
PROVIDERS: Nurse Practitioner Family; PCP Family Medicine; Referring Provider Internal Medicine; Visit Provider Internal Medicine Medical Oncology
DX: C91.10 Chronic lymphocytic leukemia of B-cell type not having achieved remission; Z87.891 Personal history of nicotine dependence; Z79.899 Other long term (current) drug therapy; E11.22 Type 2 diabetes mellitus with diabetic chronic kidney disease; I12.0 Hypertensive chronic kidney disease with stage 5 chronic kidney disease or end stage renal disease; N18.6 End stage renal disease; Z99.2 Dependence on renal dialysis; Z79.4 Long term (current) use of insulin; D63.1 Anemia in chronic kidney disease
CPT/HCPCS: 36415; 80053; 83615; 85025; 99213

== ENCOUNTER 2024-05-26 09:02 | Oncology outpatient (recurring) (ONCR) | payer OTHER, SELFPAY ==
[2024-05-26 09:23] LABS: Reticulocyte % 4.8 % (0.5-2.0)
[2024-05-26 09:25] LABS: Hematocrit 32.1 % (37-53); Mean Corpuscular HGB Conc 30.5 g/dL (30-55); Mean Corpuscular Hemoglobin 31.3 pg (27-33); Mean Corpuscular Volume 102.6 fl (82-101); Mean Platelet Volume 9.4 fL (7.4-10.4); Platelet Count 120 10^3/cmm (157-399); Red Blood Count 3.13 10^6/uL (3.85-5.65); Red Cell Distribution Width 17.2 % (12.1-15.1)
[2024-05-26 09:46] LABS: Alanine Aminotransferase 12 U/L (0-41); Alkaline Phosphatase 118 U/L (40-130); Anion Gap 14.4 (5-19); Aspartate Amino Transferase 14 U/L (0-40); Blood Urea Nitrogen 24 mg/dL (8-23); Calcium 8.8 mg/dL (8.5-10.5); Carbon Dioxide 30 mmol/L (22-29); Chloride 98 mmol/L (98-107); Creatinine Clr Calc Pharmacy 26.6783; Globulin 1.8 g/dL (1.3-4.6); Glucose 165 mg/dL (65-115); Immunoglobulin IGA 163 mg/dL (70-400); Immunoglobulin IGG 526 mg/dL (700-1600); Lactate Dehydrogenase 275 U/L (135-225); Osmolality Calculated 294 mOsm/kg (285-295); Potassium 4.4 mmol/L (3.5-5.1); Sodium 138 mmol/L (136-145); Total Bilirubin 0.6 mg/dL (0.15-1.2); Total Protein 5.8 g/dL (6.6-8.7)
[2024-05-26 09:47] LABS: Immunoglobulin IGM < 25 mg/dL (40-230)
[2024-05-26 09:49] LABS: Erythrocyte Sedimentation Rate 4 mm/hr (0-10)
[2024-05-26 10:12] LABS: White Blood Count 67.62 10^3/uL (3.29-11.43)
[2024-05-26 10:17] LABS: Absolute Eosinophils 0.7 10^3/cmm (0.0-0.7); Absolute Segmented Neutrophil 0.7 10/cmm (1.6-7.1); Eosinophils 1 %; Lymphocytes 76 %; Lymphocytes Absolute 65.6 10^3/cmm (1.2-3.4); Platelet Estimate Decreased (Normal); Segmented Neutrophils 1 %; Slide Review Slide Review Perform; Total Cells Counted 100 (0-100)
[2024-05-26 10:18] LABS: Absolute Neutrophil 0.7 10^3/cmm (1.4-6.5); Anisocytosis 2+; Giant Platelets Trace; Macrocytosis 1+; Smudge Cells 1+
[2024-05-27 06:04] LABS: PROTEIN, TOTAL 5.6 g/dL (6.1-8.1)
[2024-05-27 15:24] LABS: ABNORMAL PROTEIN BAND 1 0.1 g/dL (NONE DETECTED); ALBUMIN 3.6 g/dL (3.8-4.8); ALPHA 1 GLOBULIN 0.3 g/dL (0.2-0.3); ALPHA 2 GLOBULIN 0.6 g/dL (0.5-0.9); BETA 1 GLOBULIN 0.4 g/dL (0.4-0.6); BETA 2 GLOBULIN 0.3 g/dL (0.2-0.5); GAMMA GLOBULIN 0.5 g/dL (0.8-1.7)
== END 2024-06-22 23:59 | disposition home or self-care (01) ==
PROVIDERS: Internal Medicine; PCP Family Medicine; Referring Provider Internal Medicine; Visit Provider Internal Medicine Medical Oncology
DX: C91.10 Chronic lymphocytic leukemia of B-cell type not having achieved remission (principal); Z87.891 Personal history of nicotine dependence; Z79.899 Other long term (current) drug therapy; E11.22 Type 2 diabetes mellitus with diabetic chronic kidney disease; I12.0 Hypertensive chronic kidney disease with stage 5 chronic kidney disease or end stage renal disease; N18.6 End stage renal disease; Z99.2 Dependence on renal dialysis; Z79.4 Long term (current) use of insulin; D63.1 Anemia in chronic kidney disease
CPT/HCPCS: 36415; 80053; 82784; 83010; 83615; 84155; 84165; 85007; 85025; 85045; 85651; 99214

== ENCOUNTER 2024-07-04 16:35 | Emergency (ER) | payer OTHER, MEDICARE, SELFPAY ==
--- NOTE | 2024-07-04 16:43 | XRR_ITS ---
PROCEDURE INFORMATION: Exam: XR Chest Exam date and time: 07/04/2024 6:19 PM Age: 79 years old Clinical indication: Shortness of breath; Prior surgery; Surgery date: 6+ months; Surgery type: Cabg; Coronary angioplasty; Pacemaker; Dialysis cath; Additional info: SOB TECHNIQUE: Imaging protocol: Radiologic exam of the chest. Views: 1 view. COMPARISON: CT chest con [id number] 03/28/2024 2:30 PM FINDINGS: Tubes, catheters and devices: A left-sided dual lead pacemaker present. Lungs: Unremarkable. No consolidation. Pleural spaces: Unremarkable. No pleural effusion. No pneumothorax. Heart/Mediastinum: Right-sided PermCath present with tip in the region of the right atrium. Bones/joints: Sternotomy wires noted. XR/XR chest 1V portable [id number] IMPRESSION: No acute abnormality.
--- NOTE | 2024-07-04 16:43 | ECG_ITS ---
[facility] Test Date: 2024-07-04 Pat Name: Valente Renae Department: Room: Gender: Male Carpenter Supervisor: : 1945 Requested By: Robert Chase Order Number: [id number] Helen MD: Orlando Juarez M.D. Measurements Intervals [place] Rate: 88 P: -33 RI: 177 QRS: -74 QRSD: 197 T: 101 QT: 420 QTc: 509 Interpretive Statements ELECTRONIC VENTRICULAR PACEMAKER ABNORMAL RHYTHM ECG Compared to ECG 03/28/2024 18:25:08 No significant changes Electronically Signed On 07-06-2024 23:48:30 [employer] by Orlando Juarez M.D. [id number]
[2024-07-04 16:46] VITALS: BP 168/45; PULSE 92; RESP 20; TEMP 37.1; O2SAT 94; BMI 32.1
[2024-07-04 18:20] LABS: Basophils % 0.1 %; Eosinophils % 0.2 %; Hematocrit 31.5 % (37-53); Lymphocytes # 7.2 10^3/uL (0.8-4.8); Lymphocytes % 41.8 %; Mean Corpuscular HGB Conc 31.1 g/dL (30-55); Mean Corpuscular Hemoglobin 30.8 pg (27-33); Mean Corpuscular Volume 99.1 fl (82-101); Mean Platelet Volume 10.1 fL (7.4-10.4); Monocytes # 7.8 10^3/uL (0.2-0.9); Monocytes % 44.9 %; Neutrophils # 2.23 10^3/uL (1.8-7.7); Neutrophils % 12.8 %; Nucleated Red Blood Cells % 0 %; Platelet Count 57 10^3/cmm (157-399); Red Blood Count 3.18 10^6/uL (3.85-5.65); Red Cell Distribution Width 16.4 % (12.1-15.1); White Blood Count 17.32 10^3/uL (3.29-11.43)
--- NOTE | 2024-07-04 18:22 | ED_ITS ---
HPI - SOB/Dyspnea 2 General: Chief Complaint: Shortness of Breath/Dyspnea Stated Complaint: SOB Time Seen by Provider: 07/04/24 18:17 Source: patient Mode of arrival: ambulatory Limitations: no limitations History of Present Illness: HPI Narrative: 79-year-old male history of end-stage re nal disease is on dialysis states that he had missed his and Friday dialysis due to weather states that he is felt like his been getting ill states has had cough congestion shortness of breath been going on for 3 days. States he is seen yesterday at [facility] prescribe doxycycline he denies any fever denies any pain. Associated symptoms: Deny abdominal pain, chest pain, fever(s), nausea or vomiting Related Data Home Medications Medication Instructions Recorded Confirmed docusate sodium 100 mg capsule 100 mg PO BID PRN Constipation 12/02/19 05/26/24 (Colace) cholecalciferol (vitamin D3) 25 50 mcg PO DAILY 12/14/20 05/26/24 mcg (1,000 unit) capsule atorvastatin 10 mg tablet 10 mg PO DAILY@18 03/02/21 05/26/24 diclofenac sodium 1 % topical gel 4 g topical QID PRN Pain 05/02/21 05/26/24 insulin regular human 100 unit/mL See Rx Instructions .Route 05/02/21 05/26/24 injection solution (Novolin R .COMPLEX see pharmacy comments Regular U-100 Insulin) loratadine 10 mg tablet (Claritin) 10 mg PO DAILY 05/02/21 05/26/24 tamsulosin 0.4 mg capsule 0.4 mg PO DAILY 10/18/21 05/26/24 fluticasone propionate 50 2 spray intranasal DAILY 07/16/22 05/26/24 mcg/actuation nasal spray,suspension (Flonase Allergy Relief) finasteride 5 mg tablet 5 mg PO DAILY 11/20/22 05/26/24 insulin glargine 100 unit/mL (3 35 unit SUBCUT QAM 11/20/22 05/26/24 mL) subcutaneous pen nifedipine 60 mg tablet,extended 60 mg PO DAILY 11/20/22 05/26/24 release omega 3-zck-iod-fish oil 1,000 mg 1 cap PO BID 11/20/22 05/26/24 (120 mg-180 mg) capsule (Fish Oil) carvedilol 3.125 mg tablet 3.125 mg PO Q12H 05/12/24 05/26/24 sevelamer carbonate 800 mg tablet 800 mg PO TID 05/12/24 05/26/24 Previous Rx's Medication Instructions Recorded isosorbide mononitrate 120 mg 120 mg PO DAILY #90 tabs 09/25/23 tablet,extended release 24 hr furosemide 40 mg tablet See Rx Instructions .Route 02/10/24 .COMPLEX #30 tabs Allergies Allergy/AdvReac Type Severity Reaction Status Date / Time allopurinol Allergy ALGY-Rash Verified 07/04/24 16:50 Iodinated Contrast Media Allergy ALGY-Hives Verified 07/04/24 16:50 levofloxacin [From Levaquin] Allergy ADR-Confusi Verified 07/04/24 16:50 on metformin Allergy ADR-Fatigue Verified 07/04/24 16:50 d Review of Systems 2 Const: Denies: fever(s), chills, body aches or change in appetite ENMT: Denies: throat pain or dental pain Card: Denies: chest pain Resp: Reports: dyspnea and non-productive cough GI: Denies: abdominal pain, nausea, vomiting or diarrhea Musc: Denies: neck pain or back pain Skin/Breast: Denies: rash Neuro: Denies: headache(s) PFSH ED 2 PFSH: Medical History Hyperuricemia History of COVID-19 (~12/2020) Anemia, unspecified Complex renal cyst BPH loc w urin obs/LUTS Diabetes HTN (hypertension) ASHD (arteriosclerotic heart disease) Dyslipidemia CKD (chronic kidney disease) CLL (chronic lymphocytic leukemia) Carotid stenosis, bilateral Surgical History H/O removal of testicle S/P appendectomy S/P CABG (coronary artery bypass graft) S/P PTCA (percutaneous transluminal coronary angioplasty) Status cardiac pacemaker Family History Mother , in her 70's Diabetes CAD (coronary artery disease) Father , at age 69 CAD (coronary artery disease) Hypertension Other Cancer Chronic kidney disease (CKD) Stroke Suicide Denies family history of Clotting disorder Dementia Hyperlipidemia Psychiatric illness Anesthesia complication Bleeding disorder Lung disease Social History Smoking and tobacco/nicotine status: former use of tobacco/nicotine Quit status (tobacco/nicotine): has quit using Year quit tobacco: 1989 Alcohol intake: never Substance/Drug Use: never Household members: spouse Marital status: Current occupational status: retired Physical Exam 2 Const: COMMON NORMALS: patient oriented x3 HENMT: COMMON NORMALS: normocephalic and atraumatic HEAD & SCALP: n ormocephalic and atraumatic Eye: COMMON NORMALS: conjunctivae normal CONJUNCTIVA: Yes conjunctivae normal Neck/C-Spine: COMMON NORMALS: full ROM and supple Chest: COMMONS NORMALS: normal inspection of the chest and normal palpation of entire chest wall Resp: COMMON NORMALS: No retractions and No use of accessory muscles A USCULTATION: rales Cardio: COMMON NORMALS: regular rate, regular rhythm and No murmurs present (Cardio) RATE: regular rate RHYTHM: regular rhythm GI: COMMON NORMALS: Normal to inspection, nondistended, normoactive bowel sounds present, Soft to palpation, non-tender and no masses PALPATION: Yes Soft to palpation Extremity: COMMON NORMALS: normal to inspection and full ROM Neuro: COMMON NORMALS: patient oriented x3, moves all extremities and no focal motor deficits Psych: COMMON NORMALS: mental status grossly normal, Normal thought process present and cooperative THOUGHT PROCESS: Normal thought process present Skin: COMMON NORMALS: no rashes or lesions noted and no wounds GENERAL SKIN EXAM: no rashes or lesions noted Course 2 Vital Signs: Vital signs: Vital Signs Temperature 98.8 F 07/04/24 16:46 Pulse Rate 99 07/04/24 19:52 Respiratory Rate 30 H 07/04/24 19:00 Blood Pressure 172/82 07/04/24 19:52 Pulse Oximetry 91 07/04/24 19:52 Oxygen Delivery Me thod Room Air 07/04/24 19:00 MDM - SOB/Dyspnea Medical Decision Making Patient presents here with cough congestion some shortness of breath likely upper respiratory infection viral in origin x-ray showed no pneumonia blood works normal does have an elevated BNP did give him Lasix he is to get dialysis as scheduled he does not have any hypoxia here no signs of pulmonary embolism he is stable for discharge return if worsening. Medical Records I reviewed the patient's medical records. Lab Data I reviewed the patient's lab results. 07/04/24 17:55 07/04/24 17:55 Labs/Radiology: Radiology Impressions Chest X-Ray 07/04/24 16:43 IMPRESSION: No acute abnormality. Laboratory Results WBC 17.32 10^3/uL (3.29-11.43) H 07/04/24 17:55 RBC 3.18 10^6/uL (3.85-5.65) L 07/04/24 17:55 Hgb 9.80 g/dL (11.27-16.99) L 07/04/24 17:55 Hct 31.5 % (37-53) L 07/04/24 17:55 MCV 99.1 fl (82-101) 07/04/24 17:55 MCH 30.8 pg (27-33) 07/04/24 17: MCHC 31.1 g/dL (30-55) 07/04/24 17: RDW 16.4 % (12.1-15.1) H 07/04/24 17:55 Plt Count 57 10^3/cmm (157-399) L 07/04/24 17: MPV 10.1 fL (7.4-10.4) 07/04/24 17:55 Neut % (Auto) 12.8 % 07/04/24 17:55 Lymph % (Auto) 41.8 % 07/04/24 17:55 [place] % (Auto) 44.9 % 07/04/24 17:55 Eos % (Auto) 0.2 % 07/04/24 17:55 Baso % (Auto) 0.1 % 07/04/24 17:55 Neut # (Auto) 2.23 10^3/uL (1.8-7.7) 07/04/24 17:55 Lymph # (Auto) 7.2 10^3/uL (0.8-4.8) H 07/04/24 17:55 [place] # (Auto) 7.8 10^3/uL (0.2-0.9) H 07/04/24 17:55 Eos # (Auto) 0.0 10^3/uL (0.0-0.8) 07/04/24 17:55 Baso # (Auto) 0.0 10^3/uL (0.0-0.1) 07/04/24 17:55 Nucleated RBC % (auto) 0 % 07/04/24 17: Nucleated RBCs # 0.0 /100WBC 07/04/24 17:55 PT 15.60 SECONDS (12.1-14.9) H 07/04/24 17:55 INR 1.16 (0.8-1.2) 07/04/24 17:55 Sodium 134 mmol/L (136-145) L 07/04/24 17:55 Potassium 5.0 mmol/L (3.5-5.1) 07/04/24 17:55 Chloride 98 mmol/L (98-107) 07/04/24 17:55 Carbon Dioxide 23 mmol/L (22-29) 07/04/24 17:55 Anion Gap 18.0 (5-19) 07/04/24 17:55 BUN 42 mg/dL (8-23) H 07/04/24 17:55 Creatinine 3.6 mg/dL (0.7-1.2) H 07/04/24 17:55 GFR Calculation Not Reportable 07/04/24 17:55 Glucose 272 mg/dL (65-115) H 07/04/24 17:55 Calculated Osmolality 298 mOsm/kg (285-295) H 07/04/24 17:55 Calcium 9.6 mg/dL (8.5-10.5) 07/04/24 17:55 Total Bilirubin 0.9 mg/dL (0.15-1.2) 07/04/24 17:55 AST 9 U/L (0-40) 07/04/24 17:55 ALT 6 U/L (0-41) 07/04/24 17:55 Alkaline Phosphatase 75 U/L (40-130) 07/04/24 17:55 NT-Pro-B Natriuret Pep 38208 pg/mL (0-450) H 07/04/24 17:55 Total Protein 6.4 g/dL (6.6-8.7) L 07/04/24 17:55 Albumin 3.9 g/dL (3.5-5.2) 07/04/24 17:55 Globulin 2.5 g/dL (1.3-4.6) 07/04/24 17:55 Influenza Type A Ag Negative (Negative) 07/04/24 18:40 Influenza Type B Ag Negative (Negative) 07/04/24 18:40 SARS-CoV-2 Ag (Rapid) negative (Negative) 07/04/24 18:40 XR interpretation done by ED provider, pending radiology final review ED provider radiology interpretation(s): cxr: no acute abnormality Discharge Plan Discharge Patient Disposition: Home Clinical Impression: Upper respiratory infection, ESRD (end stage renal disease) on dialysis Condition: Stable Prescriptions: No Action cholecalciferol (vitamin D3) 25 mcg (1,000 unit) capsule 50 mcg PO DAILY atorvastatin 10 mg tablet 10 mg PO DAILY@18 carvedilol 3.125 mg tablet 3.125 mg PO Q12H Rx Instructions: must administer with a meal/food sevelamer carbonate 800 mg tablet 800 mg PO TID Rx Instructions: must administer with a meal/food finasteride 5 mg tablet 5 mg PO DAILY omega 4-sib-dfz-fish oil [Fish Oil] 1,000 mg (120 mg-180 mg) capsule 1 cap PO BID insulin glargine 100 unit/mL (3 mL) insulin pen 35 unit SUBCUT QAM nifedipine 60 mg tablet extended release 60 mg PO DAILY isosorbide mononitrate 120 mg tablet extended release 24 hr 120 mg PO DAILY Qty: 90 3RF furosemide 40 mg tablet See Rx Instructions .ROUTE .COMPLEX Qty: 30 0RF Dose Instruction: TAKE 1 TABLET BY MOUTH ONCE DAILY NEEDED FOR EDEMA Rx Instructions: TAKE 1 TABLET BY MOUTH ONCE DAILY NEEDED FOR EDEMA; docusate sodium [Colace] 100 mg Capsule 100 mg PO BID PRN (Reason: Constipation) fluticasone propionate [Flonase Allergy Relief] 50 mcg/actuation spray,suspension 2 spray INTRANASAL DAILY Novolin R Regular U100 Insulin 100 unit/mL Solution See Rx Instructions .ROUTE .COMPLEX Rx Instructions: sliding scale 3-18 units bid Claritin 10 mg Tablet 10 mg PO DAILY diclofenac sodium 1 % Gel 4 g TOPICAL QID PRN (Reason: Pain) tamsulosin 0.4 mg capsule 0.4 mg PO DAILY Discharge Orders: Discharge ED (Routine); Ordered 07/04/24 Ordered By: Robert Chase Referrals: Paula Sandoval MD [Primary Care Provider] - 4-7 days Discharge Diet: Advance as tolerated Discharge Activity: Resume usual activity Patient Instructions: Upper Respiratory Infection (ED) Coding Level of Care Code ED Steward/Stewardess Banquet for Jordin Moreno
[2024-07-04 18:33] LABS: INR 1.16 (0.8-1.2)
[2024-07-04 18:37] VITALS: BP 153/75; PULSE 95; O2SAT 91
[2024-07-04 18:39] LABS: Slide Review Slide Review Perform
[2024-07-04 18:47] LABS: Alanine Aminotransferase 6 U/L (0-41); Albumin Level 3.9 g/dL (3.5-5.2); Alkaline Phosphatase 75 U/L (40-130); Aspartate Amino Transferase 9 U/L (0-40); Blood Urea Nitrogen 42 mg/dL (8-23); Calcium 9.6 mg/dL (8.5-10.5); Carbon Dioxide 23 mmol/L (22-29); Chloride 98 mmol/L (98-107); Creatinine Clr Calc Pharmacy 20.1181; Globulin 2.5 g/dL (1.3-4.6); Glucose 272 mg/dL (65-115); Osmolality Calculated 298 mOsm/kg (285-295); Sodium 134 mmol/L (136-145); Total Bilirubin 0.9 mg/dL (0.15-1.2); Total Protein 6.4 g/dL (6.6-8.7)
[2024-07-04 19:00] VITALS: BP 162/83; PULSE 93; RESP 30; O2SAT 91
[2024-07-04 19:03] LABS: SARS Covid-2 Antigen negative (Negative)
[2024-07-04 19:04] LABS: Influenza A by IFA Negative (Negative); Influenza B by IFA Negative (Negative)
[2024-07-04 19:07] LABS: NT Pro B Type Natriuretic Pept 30645 pg/mL (0-450)
[2024-07-04 19:52] VITALS: BP 172/82; PULSE 99; O2SAT 91
[2024-07-04] MEDS: FUROsemide 10 mg/mL SDV 10mL 60 MG IVP (19:52)
== END 2024-07-04 19:53 | disposition home or self-care (01) ==
PROVIDERS: Emergency Provider Emergency Medicine; PCP Family Medicine
DX: J06.9 Acute upper respiratory infection, unspecified (principal); E11.22 Type 2 diabetes mellitus with diabetic chronic kidney disease; I12.0 Hypertensive chronic kidney disease with stage 5 chronic kidney disease or end stage renal disease; N18.6 End stage renal disease; Z99.2 Dependence on renal dialysis; E78.5 Hyperlipidemia, unspecified
CPT/HCPCS: 36415; 71045; 80053; 83880; 85025; 85610; 87426; 87804; 93005; 96374; 99285; J1940

== ENCOUNTER 2024-07-07 09:26 | Oncology outpatient (recurring) (ONCR) | payer OTHER, SELFPAY ==
[2024-07-07 10:27] LABS: Hematocrit 28.3 % (37-53); Mean Corpuscular HGB Conc 31.1 g/dL (30-55); Mean Corpuscular Hemoglobin 31.2 pg (27-33); Mean Corpuscular Volume 100.4 fl (82-101); Mean Platelet Volume 10.4 fL (7.4-10.4); Platelet Count 83 10^3/cmm (157-399); Red Blood Count 2.82 10^6/uL (3.85-5.65); Red Cell Distribution Width 16.5 % (12.1-15.1); White Blood Count 28.35 10^3/uL (3.29-11.43)
[2024-07-07 10:49] LABS: Alanine Aminotransferase 6 U/L (0-41); Albumin Level 3.6 g/dL (3.5-5.2); Alkaline Phosphatase 87 U/L (40-130); Anion Gap 15.8 (5-19); Aspartate Amino Transferase 9 U/L (0-40); Blood Urea Nitrogen 38 mg/dL (8-23); Calcium 8.6 mg/dL (8.5-10.5); Carbon Dioxide 28 mmol/L (22-29); Chloride 96 mmol/L (98-107); Creatinine Clr Calc Pharmacy 21.9929; Ferritin 426 ng/mL (30-400); Globulin 2.1 g/dL (1.3-4.6); Glucose 341 mg/dL (65-115); Iron 45 ug/dL (59-158); Lactate Dehydrogenase 232 U/L (135-225); Osmolality Calculated 303 mOsm/kg (285-295); Percent Saturation 27.6 % (20-50); Potassium 4.8 mmol/L (3.5-5.1); Sodium 135 mmol/L (136-145); Total Bilirubin 0.6 mg/dL (0.15-1.2); Total Iron Binding Capacity 163 mcg/dl; Total Protein 5.7 g/dL (6.6-8.7); Unsaturated Iron Binding 118 ug/dL (112-347)
[2024-07-07 10:50] LABS: Immunoglobulin IGA 143 mg/dL (70-400); Immunoglobulin IGG 472 mg/dL (700-1600)
[2024-07-07 10:57] LABS: Absolute Segmented Neutrophil 1.7 10/cmm (1.6-7.1); Eosinophils 0 %; Lymphocytes 60 %; Monocytes Absolute 0.6 10^3/cmm (0.1-0.6); Segmented Neutrophils 6 %; Total Cells Counted 100 (0-100)
[2024-07-07 10:58] LABS: Absolute Neutrophil 1.7 10^3/cmm (1.4-6.5); Anisocytosis Trace; Lymphocytes Absolute 26.1 10^3/cmm (1.2-3.4); Macrocytosis Trace; Platelet Estimate Decreased (Normal); Smudge Cells 1+
[2024-07-07 11:03] LABS: Vitamin B12 508 pg/mL (232-1245)
[2024-07-07 11:08] LABS: Immunoglobulin IGM 17 mg/dL (40-230)
[2024-07-07 11:24] LABS: Folate Level > 20.0 ng/mL (4.5-32.2)
[2024-07-07 11:33] LABS: Erythrocyte Sedimentation Rate 7 mm/hr (0-10)
[2024-07-08 08:49] LABS: PROTEIN, TOTAL 5.5 g/dL (6.1-8.1)
[2024-07-09 22:19] LABS: ALBUMIN 3.3 g/dL (3.8-4.8); ALPHA 1 GLOBULIN 0.5 g/dL (0.2-0.3); ALPHA 2 GLOBULIN 0.8 g/dL (0.5-0.9); BETA 1 GLOBULIN 0.3 g/dL (0.4-0.6); BETA 2 GLOBULIN 0.3 g/dL (0.2-0.5); GAMMA GLOBULIN 0.4 g/dL (0.8-1.7)
[2024-07-11 20:58] LABS: Immunofixation Serum Normal pattern.
== END 2024-07-23 23:59 | disposition home or self-care (01) ==
PROVIDERS: Internal Medicine Medical Oncology; PCP Family Medicine; Referring Provider Internal Medicine; Visit Provider Internal Medicine
DX: C91.10 Chronic lymphocytic leukemia of B-cell type not having achieved remission (principal); N18.6 End stage renal disease; J20.9 Acute bronchitis, unspecified; Z99.2 Dependence on renal dialysis; Z87.891 Personal history of nicotine dependence; Z92.21 Personal history of antineoplastic chemotherapy; Z92.3 Personal history of irradiation
CPT/HCPCS: 36415; 80053; 82607; 82728; 82746; 82784; 83010; 83540; 83550; 83615; 84155; 84165; 85007; 85025; 85045; 85651; 86334; 99213

== ENCOUNTER 2024-12-03 18:00 | Emergency (ER) | payer OTHER, MEDICARE, SELFPAY ==
[2024-12-03] VITALS (7 sets, daily range): BP systolic 85–121; BP diastolic 40–78; PULSE 65; RESP 18–25; TEMP 35.7; O2SAT 92–100; BMI 31.8
--- NOTE | 2024-12-03 18:04 | XRR_ITS ---
PROCEDURE INFORMATION: Exam: XR Chest Exam date and time: 12/03/2024 6:10 PM Age: 79 years old Clinical indication: Shortness of breath; Additional info: Short of breath TECHNIQUE: Imaging protocol: Radiologic exam of the chest. Views: 1 view. COMPARISON: CR XR chest 1V portable [id number] 07/04/2024 6:19 PM FINDINGS: Tubes, catheters and devices: There is a left-sided dual lead pacemaker. There is a right-sided hemodialysis catheter. Lungs: There is itgl-sk-urhzenov bilateral perihilar airspace disease which may represent pneumonitis or edema. Pleural spaces: There are no significant pleural effusions. Heart/Mediastinum: There is cardiomegaly with evidence prior median sternotomy. Bones/joints: Prior median sternotomy. XR/XR chest 1V portable [id number] IMPRESSION: [id number]-vf-kxycanba bilateral perihilar pneumonitis and/or edema.
--- NOTE | 2024-12-03 18:10 | CTR_ITS ---
PROCEDURE INFORMATION: Exam: CT Cervical Spine Without Contrast Exam date and time: 12/03/2024 6:43 PM Age: 79 years old Clinical indication: Injury or trauma; Blunt trauma; Prior surgery; Surgery date: 6+ months; Surgery type: Pacer; EMS arrival for fall. Patient sustained a fall last night. Patient states he does not remember how he fell or if he struck head. Per EMS patient was hypoxic at 50 percent spo2 on scene. History of leukemia. ; Additional info: Fall with altered mentation TECHNIQUE: Imaging protocol: Computed tomography of the cervical spine without contrast. Radiation optimization: All CT scans at this facility use at least one of these dose optimization techniques: automated exposure control; mA and/or kV adjustment per patient size (includes targeted exams where dose is matched to clinical indication); or iterative reconstruction. COMPARISON: CT head wo con* [id number] 12/03/2024 6:40 PM RADIATION DOSE METRICS: Total DLP (mGy-cm): 434.93 FINDINGS: Bones: No acute cervical spine fracture or listhesis. Paranasal sinuses: Mild mucosal thickening in the bilateral maxillary sinuses with no air-fluid levels. Mastoid air cells: Partial opacification of the bilateral mastoid air cells. Lungs: Lung apices are normal. Soft tissues: Unremarkable. CT/CT cervical spin wo con* [id number] IMPRESSION: No acute cervical spine fracture or listhesis.
--- NOTE | 2024-12-03 18:10 | CTR_ITS ---
PROCEDURE INFORMATION: Exam: CT Head Without Contrast Exam date and time: 12/03/2024 6:40 PM Age: 79 years old Clinical indication: Injury or trauma; Blunt trauma (contusions or hematomas); Altered mental status/memory loss; EMS arrival for fall. Patient sustained a fall last night. Patient states he does not remember how he fell or if he struck head. Per EMS patient was hypoxic at 50 percent spo2 on scene. History of leukemia. ; Additional info: Fall with altered mentation TECHNIQUE: Imaging protocol: Computed tomography of the head without contrast. Radiation optimization: All CT scans at this facility use at least one of these dose optimization techniques: automated exposure control; mA and/or kV adjustment per patient size (includes targeted exams where dose is matched to clinical indication); or iterative reconstruction. COMPARISON: CT head wo con* [id number] 03/19/2021 11:19 AM RADIATION DOSE METRICS: Total DLP (mGy-cm): 1114.4 FINDINGS: Brain: Subcortical and periventricular white matter changes consistent with small-vessel ischemic disease in the appropriate clinical setting. Small-vessel ischemic disease. No acute intracranial abnormality. Cerebral ventricles: No ventriculomegaly. Paranasal sinuses: Visualized sinuses are unremarkable. No fluid levels. Mastoid air cells: Visualized mastoid air cells are well aerated. Bones: Unremarkable. No acute fracture. Soft tissues: Unremarkable. CT/CT head wo con* [id number] IMPRESSION: 1. No acute intracranial abnormality. 2. Small-vessel ischemic disease.
--- NOTE | 2024-12-03 18:17 | ECG_ITS ---
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 Measurements Intervals [place] Rate: 65 P: 0 [place]: 0 QRS: -78 QRSD: 200 T: 97 QT: 513 QTc: 534 Interpretive Statements ELECTRONIC VENTRICULAR PACEMAKER ABNORMAL RHYTHM ECG Compared to ECG 07/04/2024 16:51:17 No significant changes Electronically Signed On 12-04-2024 14:33:27 CDT by Orlando Juarez M.D. [email or web address]
--- NOTE | 2024-12-03 18:17 | W.ED.SOB ---
HPI - SOB/Dyspnea General: Chief Complaint: Shortness of Breath/Dyspnea Stated Complaint: weakness - sob Time Seen by Provider: 12/03/24 18:01 History of Present Illness: HPI Narrative: Patient is 79-year-old gentleman ESRD on HD TTS, makes urine, presented to the ED with weakness, and shortness of breath. EMS was unable to obtain pulse oximetry, and therefore patient was placed on nonrebreather. He is hard of hearing. He denies any chest pain but admits to shortness of breath. Patient initially had an unwitnessed fall last p.m., called EMS to help him stand, however refused to go to the hospital. This a.m., patient awoke with weakness to bilateral lower extremities, upper extremities, and shortness of breath. No nausea or vomiting. No fevers. He does have a indwelling HD line in his right chest. Associated symptoms: Deny abdominal pain, chest pain, extremity pain, fever(s), nausea, palpitations or vomiting Related Data Home Medications ?Medication ?Instructions ?Recorded ?Confirmed docusate sodium 100 mg capsule 100 mg PO BID PRN Constipation 12/02/19 07/07/24 (Colace) cholecalciferol (vitamin D3) 25 50 mcg PO DAILY 12/14/20 07/07/24 mcg (1,000 unit) capsule atorvastatin 10 mg tablet 10 mg PO DAILY@18 03/02/21 07/07/24 diclofenac sodium 1 % topical gel 4 g topical QID PRN Pain 05/02/21 07/07/24 insulin regular human 100 unit/mL See Rx Instructions .Route 05/02/21 07/07/24 injection solution (Novolin R .COMPLEX see pharmacy comments Regular U-100 Insulin) loratadine 10 mg tablet (Claritin) 10 mg PO DAILY 05/02/21 07/07/24 tamsulosin 0.4 mg capsule 0.4 mg PO DAILY 10/18/21 07/07/24 fluticasone propionate 50 2 spray intranasal DAILY 07/16/22 07/07/24 mcg/actuation nasal spray,suspension (Flonase Allergy Relief) finasteride 5 mg tablet 5 mg PO DAILY 11/20/22 07/07/24 insulin glargine 100 unit/mL (3 35 unit SUBCUT QAM 11/20/22 07/07/24 mL) subcutaneous pen nifedipine 60 mg tablet,extended 60 mg PO DAILY 11/20/22 07/07/24 release omega 0-ovv-azt-fish oil 1,000 mg 1 cap PO BID 11/20/22 07/07/24 (120 mg-180 mg) capsule (Fish Oil) carvedilol 3.125 mg tablet 3.125 mg PO Q12H 05/12/24 07/07/24 sevelamer carbonate 800 mg tablet 800 mg PO TID 05/12/24 07/07/24 Previous Rx's ?Medication ?Instructions ?Recorded isosorbide mononitrate 120 mg 120 mg PO DAILY #90 tabs 09/25/23 tablet,extended release 24 hr furosemide 40 mg tablet See Rx Instructions .Route 02/10/24 .COMPLEX #30 tabs Allergies Allergy/AdvReac Type Severity Reaction Status Date / Time allopurinol Allergy ALGY-Rash Verified 07/07/24 10:04 Iodinated Contrast Media Allergy ALGY-Hives Verified 07/07/24 10:04 levofloxacin (From Levaquin) Allergy ADR-Confusi Verified 07/07/24 10:04 on metformin Allergy ADR-Fatigue Verified 07/07/24 10:04 d Review of Systems General: Reports: 10 or more systems reviewed and unremarkable except in HPI and below Const: Reports: malaise; Denies: fever(s) or chills ENMT: Denies: throat pain or odynophagia Card: Denies: chest pain or palpitations Resp: Reports: dyspnea; Denies: productive cough, non-productive cough or wheezing GI: Denies: abdominal pain, nausea or vomiting : Denies: flank pain or difficulty urinating Musc: Denies: neck pain, back pain, extremity pain or joint pain Skin/Breast: Denies: rash or pruritus Neuro: Denies: headache(s) or numbness in extremities Psych: Denies: anxiety or depression PFSH ED PFSH: Medical History Hyperuricemia History of COVID-19 (~12/2020) Anemia, unspecified Complex renal cyst BPH loc w urin obs/LUTS Diabetes HTN (hypertension) ASHD (arteriosclerotic heart disease) Dyslipidemia CKD (chronic kidney disease) CLL (chronic lymphocytic leukemia) Carotid stenosis, bilateral Surgical History H/O removal of testicle S/P appendectomy S/P CABG (coronary artery bypass graft) S/P PTCA (percutaneous transluminal coronary angioplasty) Status cardiac pacemaker Family History Mother , in her 70's Diabetes CAD (coronary artery disease) Father , at age 69 CAD (coronary artery disease) Hypertension Other Cancer Chronic kidney disease (CKD) Stroke Suicide Denies family history of Clotting disorder Dementia Hyperlipidemia Psychiatric illness Anesthesia complication Bleeding disorder Lung disease Social History Smoking and tobacco/nicotine status: former use of tobacco/nicotine Quit status (tobacco/nicotine): has quit using Year quit tobacco: 1989 Alcohol intake: never Substance/Drug Use: never Household members: spouse Marital status: Current occupational status: retired Physical Exam Const: COMMON NORMALS: no acute distress, no limitations and alert EXAM LIMITATIONS: altered mental status GENERAL APPEARANCE: cooperative and ill appearing; not in distress and not anxious ORIENTATION/CONSCIOUSNESS: Yes awake, Yes oriented to person, Yes oriented to place, Yes oriented to time and Yes confused HENMT: COMMON NORMALS: normocephalic, atraumatic, hearing grossly normal bilaterally and Normal external nose present HEAD & SCALP: normocephalic and atraumatic FACE & SINUS: normal facial exam NOSE: Normal external nose present and Normal nares present MOUTH: Normal oral and palatal mucosa present and lip normal THROAT: posterior oropharynx normal Eye: COMMON NORMALS: Equal, round and reactive pupils present, EOMs intact bilaterally, conjunctivae normal and no scleral icterus VISUAL ACUITY: Yes acuity normal CONJUNCTIVA: Yes conjunctivae normal PUPIL: Yes Equal, round and reactive pupils present Neck/C-Spine: COMMON NORMALS: full ROM and no lymphadenopathy Chest: COMMONS NORMALS: normal inspection of the chest and normal palpation of entire chest wall Resp: COMMON NORMALS: normal respiratory effort EFFORT & INSPECTION: Yes able to speak in complete sentences AUSCULTATION: crackles and bronchial breath sounds Cardio: COMMON NORMALS: regular rate, regular rhythm, S1 normal heart sound present and S2 normal heart sound present RATE: regular rate RHYTHM: regular rhythm HEART SOUNDS: S1 normal heart sound present, S2 normal heart sound present and Murmur heart sound present GI: COMMON NORMALS: Normal to inspection, nondistended, normoactive bowel sounds present, Soft to palpation and non-tender INSPECTION: Yes normal to inspection PALPATION: Yes Soft to palpation : COMMON NORMALS: Yes no CVA tenderness BLADDER/KIDNEY EXAM: Yes no CVA tenderness Back/Pelvis: COMMON NORMALS: no CVA tenderness Neuro: SENSORIUM/ORIENTATION: Yes alert, Yes oriented to person, Yes oriented to place and Yes oriented to time Course ED course: Discussed case with Dr. Pitts. Reevaluation(s): Reevaluation #1: Patient's blood pressure is 85/40 with MAP 55. No change in patient's ill appearance at bedside. O2 was weaned to 4 L with pulse ox observed on forehead >95%. Patient does have underlying sepsis, however fluids not able to be given due to fluid overload and shock. Will add Levophed, appropriate antibiotic coverage, blood cultures were ordered as well as patient has association of lactic acidosis. Wells PE score is elevated with patient's history of cancer, recent procedure of insertion of HD line, and therefore will require CTA. Will most likely send to [facility] where patient receives his care. Consultations: Consultation #1: D/w Dr. Sommer er that wll accept; however would prefer to check with critical care team for direct Consultation #2: D/w Dr. Dow; he will not accept since he feels same level of care Family / pt request [facility]. Dr. Dow will accept if open beds for pt initiated transfer Vital Signs: Vital signs: Vital Signs Temperature 96.3 F L 12/03/24 18:01 Pulse Rate 65 12/03/24 23:22 Respiratory Rate 20 H 12/03/24 23:22 Blood Pressure 121/78 12/03/24 23:22 Pulse Oximetry 98 12/03/24 23:22 Oxygen Delivery Me thod Nasal Cannula 12/03/24 20:14 Oxygen Flow Rate 3.5 12/03/24 20:14 MDM - SOB/Dyspnea Medical Decision Making Patient is 79-year-old gentleman with CAD, ESRD on HD that presents to the ED after fall last p.m., at which time he refused to go to the hospital, that presents with profound weakness. He admits to confusion as well. His fall was unwitnessed. Patient states he does produce urine with his ESRD. He does admit to shortness of breath. Will obtain routine labs, cardiac workup, COVID, ABG, and with his altered mentation and fall that was unwitnessed CT of the head and neck, lactic acid, blood cultures, and ammonia Baseball Inspector at [facility] felt like we had the ability to handle things here. I am unsure of this since we do not have 24-hour design project manager/pulmonary, however hospitalist, cardiology, nephrology is available. In any event, patient was excepted as patient initiated transfer with my concerns as addressed. I did discuss with attending, Dr. Pitts. Since CTA does not show pulmonary infiltrates, and urine analysis is pending, no source is found. Patient just had a tunneled catheter with [facility] 2 weeks ago. Blood cultures were obtained through peripheral site, and tunneled catheter. Procalcitonin is elevated. Troponin decreased which could be related to sepsis, versus NSTEMI. Repeat EKG shows paced rhythm without any change from the first EKG. Lab Data 12/03/24 18:13 12/03/24 18:13 Labs/Radiology: Radiology Impressions Chest X-Ray 12/03/24 18:04 IMPRESSION: [id number] bilateral perihilar pneumonitis and/or edema. Cervical Spine CT 12/03/24 18:10 IMPRESSION: No acute cervical spine fracture or listhesis. Head CT 12/03/24 18:10 IMPRESSION: 1. No acute intracranial abnormality. 2. Small-vessel ischemic disease. Chest CTA 12/03/24 19:13 IMPRESSION: 1. No pulmonary emboli. 2. Small bilateral pleural effusions. 3. No focal consolidation. Abdomen/Pelvis CT 12/03/24 21:25 IMPRESSION: 1. Small bilateral pleural effusions. 2. There is an enlarging mass in the left renal pelvis measuring up to 3.8 x 3.6 cm, previously 3.2 x 3.1 cm (series 4, image 46). This is incompletely assessed on this and the prior examination. Consider three-phase renal CT further evaluation of this structure. 3. There is a 6 mm stone in the distal common bile the level of the head of the pancreas (series 4, image 38). No intrahepatic or extrahepatic biliary ductal dilatation. COMMENTS: Consistent with the [employer]'s Incidental Findings Committee white paper (J Am Yari Radiol 2018): Any incidental renal lesion less than 1 cm or classified as too small to characterize, or any incidental cystic renal lesion characterized as simple-appearing, is likely benign. No follow-up imaging is recommended for these lesions per consensus recommendations based on imaging criteria. Laboratory Results WBC 22.65 10^3/uL (3.29-11.43) H 12/03/24 18:13 RBC 3.54 10^6/uL (3.85-5.65) L 12/03/24 18:13 Hgb 11.40 g/dL (11.27-16.99) 12/03/24 18:13 Hct 38.4 % (37-53) 12/03/24 18:13 MCV 108.5 fl (82-101) H 12/03/24 18:13 MCH 32.2 pg (27-33) 12/03/24 18:13 MCHC 29.7 g/dL (30-55) L 12/03/24 18:13 RDW 18.6 % (12.1-15.1) H 12/03/24 18:13 Plt Count 85 10^3/cmm (157-399) L 12/03/24 18:13 MPV 10.1 fL (7.4-10.4) 12/03/24 18:13 Neut % (Auto) 23.1 % 12/03/24 18:13 Lymph % (Auto) 59.8 % 12/03/24 18:13 [place] % (Auto) 16.4 % 12/03/24 18:13 Eos % (Auto) 0.1 % 12/03/24 18:13 Baso % (Auto) 0.2 % 12/03/24 18:13 Neut # (Auto) 5.24 10^3/uL (1.8-7.7) 12/03/24 18:13 Lymph # (Auto) 13.5 10^3/uL (0.8-4.8) H 12/03/24 18:13 [place] # (Auto) 3.7 10^3/uL (0.2-0.9) H 12/03/24 18:13 Eos # (Auto) 0.0 10^3/uL (0.0-0.8) 12/03/24 18:13 Baso # (Auto) 0.1 10^3/uL (0.0-0.1) 12/03/24 18:13 Nucleated RBC % (auto) 0.2 % 12/03/24 18:13 Nucleated RBCs # 0.0 /100WBC 12/03/24 18:13 Specimen Type Arterial 12/03/24 18:07 Sample Site Radial, left 12/03/24 18:07 ABG pH 7.23 (7.35-7.45) L 12/03/24 18:07 ABG pCO2 25.7 mmHg (35-45) L 12/03/24 18:07 ABG pO2 208.0 mmHg (80.0-100.0) H 12/03/24 18:07 ABG PO2/FiO2 Ratio 208 12/03/24 18:07 ABG HCO3 10.7 mmol/L (22-26) L 12/03/24 18:07 ABG O2 Saturation > 99.1 12/03/24 18:07 ABG Base Excess -15.3 mmol/L (-2.0-2.0) L 12/03/24 18:07 Tj Test Pos 12/03/24 18:07 A-a O2 Gradient 60.0 mmHg (5-10) H 12/03/24 18:07 Hematocrit 34.0 % (42-52) L 12/03/24 18:07 Hgb O2 Saturation 97.6 % (95-100) 12/03/24 18:07 Carboxyhemoglobin 1.4 %THgb (0.4-20.1) 12/03/24 18:07 Methemoglobin 0.9 % (0.4-1.5) 12/03/24 18:07 Total Hemoglobin 11.1 g/dL (14-18) L 12/03/24 18:07 Sodium 137.0 mmol/L (131-143) 12/03/24 18:07 Potassium 4.4 mmol/L (3.5-5.0) 12/03/24 18:07 Glucose 222.0 mg/dL (70-115) H 12/03/24 18:07 Ionized Calcium 1.2 mmol/L (1.1-1.4) 12/03/24 18:07 O2 Delivery Device Nrb 12/03/24 18:07 FiO2 100.0 % 12/03/24 18:07 Poultry Farm Manager ID Amh 12/03/24 18:07 Sodium 141 mmol/L (136-145) 12/03/24 18:13 Potassium 5.0 mmol/L (3.5-5.1) 12/03/24 18:13 Chloride 97 mmol/L (98-107) L 12/03/24 18:13 Carbon Dioxide 12 mmol/L (22-29) L 12/03/24 18:13 Anion Gap 37.0 (5-19) H 12/03/24 18:13 BUN 31 mg/dL (8-23) H 12/03/24 18:13 Creatinine 4.5 mg/dL (0.7-1.2) H 12/03/24 18:13 GFR Calculation Not Reportable 12/03/24 18:13 Glucose 209 mg/dL (65-115) H 12/03/24 18:13 Calculated Osmolality 305 mOsm/kg (285-295) H 12/03/24 18:13 Lactic Acid 13.7 mmol/L (0.5-2.2) H* 12/03/24 18:13 Lactic Acid (Sepsis) 9.6 mmol/L (0.5-2.2) H* 12/03/24 21:54 Calcium 9.4 mg/dL (8.5-10.5) 12/03/24 18:13 Total Bilirubin 2.2 mg/dL (0.15-1.2) H 12/03/24 18:13 AST 74 U/L (0-40) H 12/03/24 18:13 ALT 20 U/L (0-41) 12/03/24 18:13 Alkaline Phosphatase 87 U/L (40-130) 12/03/24 18:13 Troponin T Baseline 4791 ng/L (0-15) H* 12/03/24 18:13 Troponin T 120 Minute 4217 ng/L (0-15) H 12/03/24 20:12 Delta Troponin T -574 ABS# (0-10) L 12/03/24 20:12 NT-Pro-B Natriuret Pep 72093 pg/mL (0-450) H 12/03/24 18:13 Total Protein 6.9 g/dL (6.6-8.7) 12/03/24 18:13 Albumin 4.3 g/dL (3.5-5.2) 12/03/24 18:13 Globulin 2.6 g/dL (1.3-4.6) 12/03/24 18:13 Procalcitonin 51.73 ng/mL (0-0.5) H 12/03/24 18:13 Influenza A (PCR) Negative (Negative) 12/03/24 18:32 Influenza Type B (PCR) Negative (Negative) 12/03/24 18:32 RSV (PCR) Negative (Negative) 12/03/24 18:32 SARS-CoV-2 (PCR) Negative (Negative) 12/03/24 18:32 XR interpretation done by ED provider, pending radiology final review EKG Data EKG 1: I personally reviewed and interpreted this EKG as follows: Interpretation: paced without st elevation Discharge Plan Discharge Patient Disposition: Xfer Short-Term Hosp Clinical Impression: Acute lactic acidosis, Bacterial pneumonia, unspecified, Elevated troponin I level, Abnormal transaminases, Elevated bilirubin, CLL (chronic lymphocytic leukemia), Septic shock, Metabolic acidosis Sepsis Qualifiers: Sepsis type: sepsis due to unspecified organism Sepsis acute organ dysfunction status: with acute organ dysfunction Severe sepsis acute organ dysfunction type: encephalopathy Severe sepsis shock status: with septic shock Qualified Code(s): A41.9 - Sepsis, unspecified organism CHF (congestive heart failure) Qualifiers: Heart failure type: unspecified Heart failure chronicity: acute Qualified Code(s): I50.9 - Heart failure, unspecified Condition: Critical Referrals: Paula Sandoval MD [Primary Care Provider, [facility]] Print Language: Bahamian Coding Level of Care Code ED Veneer Sorter for Jordin Moreno
[2024-12-03 18:19] LABS: ABG PCO2 25.7 mmHg (35-45); ABG PH Result 7.23 (7.35-7.45); Base Excess ABG -15.3 mmol/L (-2.0-2.0); Blood Gas Allen Test Pos; Blood Gas Operator Identificat AMH; Blood Gas Sample Site Radial, left; Blood Gas Sample Type Arterial; Carboxyhemoglobin 1.4 %THgb (0.4-20.1); HCO3 ABG 10.7 mmol/L (22-26); HGB O2 Sat 97.6 % (95-100); Ionized Calcium Level - ABG 1.2 mmol/L (1.1-1.4); Methemoglobin 0.9 % (0.4-1.5); Oxygen Device NRB; Oxygen Saturation ABG > 99.1; PO2 FiO2 Ratio Arterial Blood 208; Potassium Level - ABG 4.4 mmol/L (3.5-5.0); Total Hemoglobin 11.1 g/dL (14-18)
[2024-12-03 18:21] LABS: Basophils # 0.1 10^3/uL (0.0-0.1); Basophils % 0.2 %; Eosinophils % 0.1 %; Hematocrit 38.4 % (37-53); Lymphocytes # 13.5 10^3/uL (0.8-4.8); Lymphocytes % 59.8 %; Mean Corpuscular HGB Conc 29.7 g/dL (30-55); Mean Corpuscular Hemoglobin 32.2 pg (27-33); Mean Corpuscular Volume 108.5 fl (82-101); Mean Platelet Volume 10.1 fL (7.4-10.4); Monocytes # 3.7 10^3/uL (0.2-0.9); Monocytes % 16.4 %; Neutrophils # 5.24 10^3/uL (1.8-7.7); Neutrophils % 23.1 %; Nucleated Red Blood Cells % 0.2 %; Platelet Count 85 10^3/cmm (157-399); Red Blood Count 3.54 10^6/uL (3.85-5.65); Red Cell Distribution Width 18.6 % (12.1-15.1); White Blood Count 22.65 10^3/uL (3.29-11.43)
[2024-12-03 19:08] LABS: Alanine Aminotransferase 20 U/L (0-41); Albumin Level 4.3 g/dL (3.5-5.2); Alkaline Phosphatase 87 U/L (40-130); Aspartate Amino Transferase 74 U/L (0-40); Blood Urea Nitrogen 31 mg/dL (8-23); Calcium 9.4 mg/dL (8.5-10.5); Carbon Dioxide 12 mmol/L (22-29); Chloride 97 mmol/L (98-107); Creatinine Clr Calc Pharmacy 16.0273; Globulin 2.6 g/dL (1.3-4.6); Glucose 209 mg/dL (65-115); Osmolality Calculated 305 mOsm/kg (285-295); Sodium 141 mmol/L (136-145); Total Bilirubin 2.2 mg/dL (0.15-1.2); Total Protein 6.9 g/dL (6.6-8.7)
[2024-12-03 19:09] LABS: Lactic Sepsis W/Reflex 13.7 mmol/L (0.5-2.2); Troponin(5th) Baseline 4791 ng/L (0-15)
--- NOTE | 2024-12-03 19:13 | CTR_ITS ---
PROCEDURE INFORMATION: Exam: CTA Chest With Contrast Exam date and time: 12/03/2024 8:24 PM Age: 79 years old Clinical indication: Shortness of breath; Prior surgery; Surgery date: 6+ months; Surgery type: Cabg. Pacer. Dialysis cath. SOB with hypoxia. Base troponin of 4791. History of leukemia and esrd. ; Additional info: Short of breath TECHNIQUE: Imaging protocol: Computed tomographic angiography of the chest with contrast. Exam focused on the arteries. 3D rendering (Not supervised by radiologist): MIP and/or 3D reconstructed images were created by the technologist. Radiation optimization: All CT scans at this facility use at least one of these dose optimization techniques: automated exposure control; mA and/or kV adjustment per patient size (includes targeted exams where dose is matched to clinical indication); or iterative reconstruction. Contrast material: OMNI 350; Contrast volume: 88 ml; Contrast route: INTRAVENOUS (IV); COMPARISON: CT chest wo con [id number] 03/28/2024 2:30 PM RADIATION DOSE METRICS: Total DLP (mGy-cm): 459.29 FINDINGS: Pulmonary arteries: No pulmonary emboli. Aorta: Unremarkable. No aortic aneurysm. No aortic dissection. Lungs: There is an 11 mm, previously 12 mm, juxtapleural pulmonary nodule in the left upper lobe (series 4, image 14). Given its stability over multiple years since 05/03/2021 this is thought almost certainly to be benign. No focal consolidation. Pleural spaces: Small bilateral pleural effusions. Heart: Unremarkable. No cardiomegaly. No pericardial effusion. Coronary arteries: Coronary arterial atherosclerotic calcifications are present. Lymph nodes: Multiple prominent mediastinal lymph nodes which are thought to be reactive in nature. Calcifying lymph nodes in the mediastinum and right hilar station. Liver: Multiple punctate calcifications throughout the liver which can be seen the setting of prior granulomatous infection. Spleen: Multiple punctate calcifications in the spleen consistent with prior granulomatous infection. Splenomegaly with the spleen measuring up to 15.9 cm in length. Bones/joints: Prior median sternotomy and CABG. Soft tissues: Unremarkable. CT/CT angio chest PE protcl [id number] IMPRESSION: 1. No pulmonary emboli. 2. Small bilateral pleural effusions. 3. No focal consolidation.
[2024-12-03 19:23] LABS: Influenza A NEGATIVE (Negative); Influenza B NEGATIVE (Negative); Respiratory Syncytial Virus Ce NEGATIVE (Negative); SARS-CoV-2 PCR NEGATIVE (Negative)
[2024-12-03 19:25] LABS: Slide Review Slide Review Perform
[2024-12-03 19:29] LABS: NT Pro B Type Natriuretic Pept 52415 pg/mL (0-450)
[2024-12-03] MEDS: norepinephrine 4 MG/250 ML BAG 7.5 MG IV (19:39)
--- NOTE | 2024-12-03 19:41 | PC.NURSE ---
PT BP 93/48 @1940 PT STARTED ON 2MCGMIN
--- NOTE | 2024-12-03 19:48 | PC.NURSE ---
PT BP @1949 101/50 LEVO TITRATED TO 4MCG/MIN
[2024-12-03] MEDS: methylPREDNISolone sod succ 125 mg/2 mL INJ IVP (19:59)
[2024-12-03] MEDS: diphenhydrAMINE 50 mg/mL SDV 1mL IVP (19:59)
--- NOTE | 2024-12-03 20:01 | PC.NURSE ---
PT BP @2000 99/49 LEVO TITRATED TO 6MCG/MIN
[2024-12-03 20:03] LABS: Reflex Lactate Order REFLEX LACTIC ORDERD
--- NOTE | 2024-12-03 20:04 | ECG_ITS ---
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 Measurements Intervals [place] Rate: 65 P: 0 MD: 0 QRS: 256 QRSD: 205 T: 72 QT: 487 QTc: 507 Interpretive Statements ELECTRONIC VENTRICULAR PACEMAKER ABNORMAL RHYTHM ECG Compared to ECG 12/03/2024 18:17:08 No significant changes Electronically Signed On 12-04-2024 14:36:51 CDT by Orlando Juarez M.D. [email or web address]
[2024-12-03 20:09] LABS: Procalcitonin 51.73 ng/mL (0-0.5)
--- NOTE | 2024-12-03 20:12 | PC.NURSE ---
PT BP @2011 117/58 LEVO NOT TITRATED, LEFT AT 6MCG/MIN
[2024-12-03] MEDS: iohexol 350 mg/mL 500 mL Btl (per mL) IV (20:30)
[2024-12-03] MEDS: cefepime 1,000 mg SDV 500 MG IVP (20:41)
[2024-12-03] MEDS: FUROsemide 10 mg/mL SDV 4mL 40 MG IVP (20:41)
[2024-12-03] MEDS: vancomycin 1,500 MG/300 ML PIGGYBACK 200 MG IV (20:42)
[2024-12-03 21:02] LABS: Troponin 5 2HR 4217 ng/L (0-15); Troponin 5 2HR Delta -574 ABS# (0-10)
--- NOTE | 2024-12-03 21:25 | CTR_ITS ---
PROCEDURE INFORMATION: Exam: CT Abdomen And Pelvis Without Contrast Exam date and time: 12/03/2024 10:31 PM Age: 79 years old Clinical indication: Pain and abnormal findings; Abnormal lab test; Elevated wbc and other: Lactic acid; Abdominal pain; Generalized; Prior surgery; Surgery date: 6+ months; Surgery type: Cabg. Pacer. Appy. Diffuse abd pain with wbc of 23k and lactic acid of 13.7. History of leukemia and esrd. TECHNIQUE: Imaging protocol: Computed tomography of the abdomen and pelvis without contrast. Radiation optimization: All CT scans at this facility use at least one of these dose optimization techniques: automated exposure control; mA and/or kV adjustment per patient size (includes targeted exams where dose is matched to clinical indication); or iterative reconstruction. COMPARISON: CT abdomen pelvis wo con [id number] 11/06/2023 12:15 PM RADIATION DOSE METRICS: Total DLP (mGy-cm): 1033.14 FINDINGS: Pleural spaces: Small bilateral pleural effusions. Liver: Multiple punctate calcifications in the liver may represent sequela of prior granulomatous infection. Gallbladder and biliary ducts: Multiple calcified stones in the gallbladder. Pancreas: There is a 6 mm stone in the distal common bile the level of the head of the pancreas (series 4, image 38). No intrahepatic or extrahepatic biliary ductal dilatation. Spleen: Multiple punctate calcifications in the spleen consistent with prior granulomatous infection. Splenomegaly. The spleen measures up to 15.9 cm in length. Adrenal glands: Normal. No mass. Kidneys and ureters: There is a 7.3 cm peripherally calcified cystic structure in the right kidney. There is an enlarging mass in the left renal pelvis measuring up to 3.8 x 3.6 cm, previously 3.2 x 3.1 cm (series 4, image 46). This is incompletely assessed on this and the prior examination. Consider three-phase renal CT further evaluation of this structure. Stomach and bowel: Unremarkable. No obstruction. No mucosal thickening. Appendix: No evidence of appendicitis. Intraperitoneal space: Unremarkable. No free air. No significant fluid collection. Vasculature: Severe atherosclerotic disease of the abdominal iliac arteries. Lymph nodes: Unremarkable. No enlarged lymph nodes. Urinary bladder: There is a Beckham catheter in the bladder. The bladder is decompressed. Reproductive: Unremarkable as visualized. Bones/joints: Prior median sternotomy CABG. Soft tissues: Unremarkable. CT/CT abdomen pelvis wo con [id number] IMPRESSION: 1. Small bilateral pleural effusions. 2. There is an enlarging mass in the left renal pelvis measuring up to 3.8 x 3.6 cm, previously 3.2 x 3.1 cm (series 4, image 46). This is incompletely assessed on this and the prior examination. Consider three-phase renal CT further evaluation of this structure. 3. There is a 6 mm stone in the distal common bile the level of the head of the pancreas (series 4, image 38). No intrahepatic or extrahepatic biliary ductal dilatation. COMMENTS: Consistent with the [employer]'s Incidental Findings Committee white paper (J Am Yari Radiol 2018): Any incidental renal lesion less than 1 cm or classified as too small to characterize, or any incidental cystic renal lesion characterized as simple-appearing, is likely benign. No follow-up imaging is recommended for these lesions per consensus recommendations based on imaging criteria.
[2024-12-03] MEDS: aspirin 81 mg Chew Tablet 324 MG PO (21:40)
[2024-12-03 22:32] LABS: Lactic Acid level (Lactate) 9.6 mmol/L (0.5-2.2)
[2024-12-04 00:24] LABS: Ammonia 58 umol/L (16-60)
== END 2024-12-03 23:24 | disposition short-term general hospital (02) ==
PROVIDERS: Emergency Provider Physician Assistant; PCP Family Medicine
DX: A41.9 Sepsis, unspecified organism (principal); R65.21 Severe sepsis with septic shock; N18.6 End stage renal disease; E11.22 Type 2 diabetes mellitus with diabetic chronic kidney disease; J15.9 Unspecified bacterial pneumonia; C91.10 Chronic lymphocytic leukemia of B-cell type not having achieved remission; E78.5 Hyperlipidemia, unspecified; E87.20 Acidosis, unspecified; I13.2 Hypertensive heart and chronic kidney disease with heart failure and with stage 5 chronic kidney disease, or end stage renal disease; Z95.1 Presence of aortocoronary bypass graft; Z87.891 Personal history of nicotine dependence; I25.10 Atherosclerotic heart disease of native coronary artery without angina pectoris; Z11.52 Encounter for screening for COVID-19; I50.9 Heart failure, unspecified; Z79.899 Other long term (current) drug therapy; Z79.4 Long term (current) use of insulin; R79.89 Other specified abnormal findings of blood chemistry; Z99.2 Dependence on renal dialysis
CPT/HCPCS: 36415; 36600; 51702; 70450; 71045; 71275; 72125; 74176; 80051; 80053; 82140; 82330; 82805; 83605; 83880; 84145; 84484; 85025; 87040; 87637; 93005; 96365; 96375; 99285; 99291; 99292; J0692; J1200; J1938; J2919; J3370; J9999

== ENCOUNTER 2024-12-18 16:13 | Emergency (ER) | payer OTHER, SELFPAY ==
--- OUTSIDE RECORDS SUMMARY | 2023-12-22 10:36 | XMS_ITS | Encounter Summary ---
Author Name [facility] [place] Address [address] [place] [address] Care Team Providers Care Decal Decorator Name Role Phone TATO BARRAZA Primary Care Provider Unavailabl e Insurance Providers: All historical and current Section Date Range: From patient's date of to the date document was created. This section includes the names of all active insurance providers for the patient. Insurance Provider Type of Coverage Plan Name Start of Policy Coverage End of Policy Coverage Group Number Member ID Insurance Provider's Telephone Number Policy Cedillo's Name Patient's Relationship to Policy Cedillo MEDICARE (WNR) MEDICARE (M) PART A Feb 21, 2009 PART A [id number] [phone] ANGELLA MARTIN PATIENT MEDICARE (WNR) MEDICARE (M) PART B Feb 21, 2009 PART B [id number] ANGELLA MARTIN PATIENT MEDICARE (WNR) MEDICARE (M) PART A Feb 21, 2009 PART A [id number] ANGELLA MARTIN PATIENT MEDICARE (WNR) MEDICARE (M) PART B Feb 21, 2009 PART B [id number] [phone] ANGELLA MARTIN PATIENT MEDICARE (WNR) MEDICARE (M) PART A Feb 21, 2009 PART A [id number] [phone] MARTIN,ANGELLA E PATIENT MEDICARE (WNR) MEDICARE (M) PART B Feb 21, 2009 PART B [id number] ANGELLA MARTIN PATIENT [employer] [employer] [place] [employer] PLAN F MEDIC ARE SUPPL EMENT 2013 PLAN F [id number] [phone] ANGELLA MARTIN PATIENT [place] [employer] [place] MED[place] SUPPLEMEN [place] MEDIC ARE SUPPL EMENT 2013 PLAN F [id number] [phone] ANGELLA MARTIN PATIENT Selected Encounter This section includes the information on record at [place] for the Encounter. Date/Time Encounter Type Encounter Description Reason Pro vider Source Dec 22, 2023 03:36 PM Outpatient Encounter ADMIN PAT ACTIVTIES (MASNONCT) IHE Encounter Template Text not used by [place] Plan of Treatment: Future Appointments (+ 6 months) and Future Tests (+/- 45 days) The Plan of Treatment section includes future care activities for the patient from all [place] treatmentfacilities. This section includes future appointments and future orders which are active, pending or scheduled. Future Appointments This section includes appointments that were scheduled to occur 6 months from the date of the Encounter, up to a maximum of 20 appointments. The data comes from all [place] treatment facilities. Appointment Date/Time Appointment Type Appointme nt Facility Name Jan 08, 2024 11:00 AM AMBULATORY [place] [facility] Jan 14, 2024 01:00 PM AMBULATORY - MEDICINE [facility] Jan 14, 2024 01:01 PM [place] [place] [facility] Feb 17, 2024 01:00 PM AMBULATORY - [place] [facility] Feb 18, 2024 12:30 PM AMBULATORY - [place] [facility] Mar 19, 2024 01:30 PM AMBULATORY - MEDICINE [facility] Mar 31, 2024 08:00 AM AM[place]ORY [place] [facility] Apr 08, 2024 10:20 AM AMBULATORY - NONE [place] [facility] Apr 08, 2024 11:00 AM AM[place]ULATORY [place] [facility] Apr 26, 2024 01:30 PM AMBULATORY - MEDICINE [facility] Apr 26, 2024 02:30 PM AMBULATORY - MEDICINE [facility] Jun 04, 2024 10:00 AM AMBULATORY - MEDICINE [facility] Jun 07, 2024 09:00 AM AMBULATORY - MEDICINE [facility] Lab Results: +/- 30 days of the encounter This section includes the Chemistry and Hematology Lab Results on record with [facility] for the patient. Radiology Reports and Pathology Reports are provided separately, in subsequent sections. Lab Results This section contains the Chemistry/Hematology Results that were resulted 30 days before or 30 daysafter the date of the Encounter. Date/Time Source Result Type Result - Unit Interpretation Reference Range Specimen Type Comment Dec 03, 2023 10:12 AM [facility] HGA1C BLOOD Specimen Type: BLOOD No comment entered. Ordering Provider: TATO BARRAZA Report Released Date/Time: Dec 17, 2022 11:49 AM Reporting Lab: [place] [facility] [address] [place] [phone] Performing Lab: [place] [facility] [address] [place] [address] HGA1C 6.8 H 4.0-6.0 Dec 03, 2023 10:12 AM [facility] TSH (MA-PB) SERUM Specimen Typ e: SERUM No comment entered. Ordering Provider: TATO BARRAZA Report Released Date/Time: Dec 17, 2022 11:49 AM Reporting Lab: [place] [facility] [address] [place] [phone] Performing Lab: [place] [facility] [address] [place] [address] TSH 4.347 u[IU]/mL 0.47-5 Dec 03, 2023 10:12 AM [facility] CHOLESTEROL PANEL (PB) PLASMA Specimen Type: P LASMA No comment entered. Ordering Provider: TATO BARRAZA Report Released Date/Time: Dec 17, 2022 11:49 AM Reporting Lab: [place] [facility] [address] [place] [phone] Performing Lab: [place] [facility] [address] [place] [address] CHOLESTEROL 121 mg/dL 0-200 TRIGLYCERIDE 74 mg/dL 0-150 CALCULATED LDL 79.2 mg/dL HDL(New) 27.0 mg/dL L >40 HDL % OF TOTAL CHOLESTEROL (PB) 22.3 >25 Dec 03, 2023 10:12 AM [facility] COMPREHENSIVE METABOLIC PANEL PLASMA Specimen Type: PLASMA No comment entered. Ordering Provider: TATO BARRAZA Report Released Date/Time: Dec 17, 2022 11:49 AM Reporting Lab: [place] [facility] [address] [place] [address] Performing Lab: [place] [facility] [address] [place] [address] CREATININE 3.36 mg/dL H 0.7-1.3 UREA NITROGEN 48 mg/dL H 9-25 GLUCOSE 207 mg/dL H 72-99 SODIUM 135 meq/L L 136-145 POTASSIUM 4.3 meq/L 3.5-5 CHLORIDE 104 meq/L 98-107 CARBON DIOXIDE 21 meq/L L 22-31 CALCIUM 9.1 mg/dL 8.4-10.4 PROTEIN 6.2 g/dL 6-8.6 ALBUMIN 3.6 g/dL 3.4-5 TOTAL BILIRUBIN 0.5 mg/dL 0.2-1.2 ALKALINE PHOSPHATASE 60 U/L 40-150 AST/SGOT 8 U/L 5-34 ALT/SGPT <6 U/L L 8-40 EGFR (CKD-EPI 2020) 18 Dec 03, 2023 10:11 AM [facility] URINE ALBUMIN PROFILE-ih (PB) URINE Specimen Type: URINE Comment: Unable to calculate due to Microalbumin >500.0 Ordering Provider: TATO BARRAZA Report Released Date/Time: Dec 17, 2022 11:50 AM Reporting Lab: [place] [facility] [address] [place] [phone] Performing Lab: [place] [facility] [address] [place] [address] U.PROTEIN 271.6 mg/dL URINE ALBUMIN (PB-STL) >500.0 mg/L H 0-30 uACR (PB-MA) comment ug/mg CREATININE URINE/OTHERS 205.91 mg/dL PROTEIN/CREAT RATIO (PB-STL) 1.3 Dec 03, 2023 10:11 AM [facility] CBC BLOOD Specimen Type: BLOOD No comment entered. Ordering Provider: TATO BARRAZA Report Released Date/Time: Dec 17, 2022 11:49 AM Reporting Lab: [place] [facility] [address] [place] [phone] Performing Lab: [place] [facility] [address] [place] [address] WBC 8.2 10*3/uL 3.6-11.2 RBC 2.78 10*6/uL L 4.10-5.70 HGB 8.4 g/dL L 13.1-16.8 HCT 26.3 L 38.2-48.4 MCV 94.6 fL 80.0-100.0 MCH 30.2 pg 27.0-34.0 MCHC 31.9 g/dL L 33.0-36.0 PLT 81 10*3/uL L 150-400 MPV 10.0 fL 7.5-11.2 NEUTROPHILS 39 MONOCYTES 2 EOSINOPHILS 4 PLT. (SMEAR EST.) DECREASED ADEQUATE RDW 16.0 H 11.8-15.1 LYMPHOCYTES 53 LYMPHOCYTES, AUTO % 48.2 MONOCYTES, AUTO % 13.5 NEUTROPHILS, AUTO % 35.7 EOSINOPHILS, AUTO % 2.1 BASOPHILS, AUTO % 0.1 LYMPHOCYTES, ABSOLUTE 3.96 10*3/uL 0.77- 4.50 MONOCYTES, ABSOLUTE 1.11 10*3/uL H 0.19-0. 8 NEUTROPHILS, ABSOLUTE 2.93 10*3/uL 2.10- 8.00 EOSINOPHILS, ABSOLUTE 0.17 10*3/uL 0.00- 0.60 BASOPHILS, ABSOLUTE 0.01 10*3/uL 0.00-0. 20 ATYPICAL LYMPHOCYTES 2 IMMATURE PLT FRACTION 2.1 1.0-7.0 IMMATURE GRANS, AUTO % 0.4 IMMATURE GRANS, AUTO ABS 0.03 10*3/uL 0. 00-0.05 NORMRBC YES IG#-MDIFF 0.00 10*3/uL >0.00 EO#-MDIFF 0.33 10*3/uL 0.00-0.60 MONO#-MDIFF 0.16 10*3/uL L 0.19-0.8 LYMPH#-MDIFF 4.35 10*3/uL 0.77-4.50 NEUT#-MDIFF 3.20 10*3/uL 2.10-8.00 Dec 03, 2023 10:11 AM [facility] BASIC METABOLIC PANEL PLASMA Specimen Type: PL ASMA No comment entered. Ordering Provider: TATO BARRAZA Report Released Date/Time: November 18, 2023 04:07 PM Reporting Lab: [place] [facility] [address] [place] [phone] Performing Lab: [place] [facility] [address] [place] [address] CREATININE 3.37 mg/dL H 0.7-1.3 UREA NITROGEN 48 mg/dL H 9-25 GLUCOSE 204 mg/dL H 72-99 SODIUM 135 meq/L L 136-145 POTASSIUM 4.4 meq/L 3.5-5 CHLORIDE 103 meq/L 98-107 CARBON DIOXIDE 21 meq/L L 22-31 CALCIUM 9.2 mg/dL 8.4-10.4 EGFR (CKD-EPI 2020) 18 Social History: Smoking Status (Most current) and Tobacco Use (All prior to encounter date) This section includes the most current, and the historical, smoking and tobacco- related health factors from the [place] facility where the Encounter took place. Current Smoking Status This section includes the most current smoking, or tobacco-related health factor, from the [place] facility where the Encounter took place. Date/Time Current Smoking Status Comment Facil ity Jun 13, 2023 11:00 AM [place]-TOBACCO FORMER USER [facility] Tobacco Use History This section includes a history of the smoking, or tobacco-related health factors, that were collected on or before the date of the Encounter. The data comes from the [place] facility where the Encounter took place. Date/Time Smoking Status/Tobacco Use Comment F acility Jun 13, 2023 11:00 AM VA-TOBACCO QUIT 15 YRS OR MORE [facility] May 22, 2022 10:30 AM VA-TOBACCO FORMER USER [facility] May 22, 2022 10:30 AM VA-TOBACCO QUIT 15 YRS OR MORE [facility] May 24, 2021 09:00 AM VA-TOBACCO NEVER USED [facility] Feb 07, 2020 10:30 AM VA-TOBACCO FORMER USER [facility] Feb 07, 2020 10:30 AM VA-TOBACCO QUIT 15 YRS OR MORE [facility] Aug 04, 2018 03:05 PM VA-TOBACCO FORMER USER [facility] Aug 04, 2018 03:05 PM VA-TOBACCO QUIT 15 YRS OR MORE [facility] Jun 30, 2017 02:33 PM QUIT TOBACCO >7 YEARS AGO [facility] Sep 17, 2012 02:58 PM QUIT TOBACCO >7 YEARS AGO [facility] Nov 30, 2004 09:55 AM CURRENT NON-TOBACCO USER-HX OF [facility] Jul 03, 2004 01:41 PM CURRENT NON-TOBACCO USER-HX OF [facility] Sep 01, 2003 02:24 PM CURRENT NON-TOBACCO USER-HX OF [facility] Sep 16, 2002 10:15 AM CURRENT NON-TOBACCO USER-HX OF [facility] Radiology Reports: +/- 30 days of the encounter Radiology Reports For cases when an order for radiology services may have been completed prior to the date of the Encounter, the report list includes the Radiology Reports that were completed up to 30 days before dateof the Encounter. For cases when an order for radiology services may have been completed after the date of the Encounter, the report list also includes the Radiology Reports that were completed up to30 days after date of the Encounter. The data comes from all [place] treatment facilities. Date/Time Radiology Report Provider Source Dec 22, 2023 10:01 AM US RENAL COMPLETE: NISA MARTIN [id number] -1945 M Exm Date: DEC 22, 2023@10:01 Req Phys: TATO BARRAZA Loc: OUTSIDE PB-ULTRASOUND (Req'g L Img Loc: OUTSIDE PB-ULTRASOUND Service: Unknown (Case [id number] COMPLETE) US RENAL COMPLETE (US Detailed) CPT:74477 Reason for Study: Exam imported from outside Clinical History: Original Data for Imported Study Patient Name: NISA MARTIN Date: 1945 Sex: M Study Date: 12/22/23 Study Time: 10:01:01 Study Description: US renal BI* [id number] Referring Physician: UNKNOWN, UNKNOWN Series 1: 49 US files, description: US renal BI* [id number] Acquisition site: [place] [id number] Report Status: Electronically Filed Date Reported: FEB 04, 2024 Report: Electronically generated report for outside study. Impression: Electronically generated report for outside study. VERIFIED BY: / *ELECTRONICALLY FILED* SHREYA GREEN [facility] Encounter Notes: All associated encounter notes This section contains the clinical notes associated to the Encounter. Date/Time Encounter Note(s) Provider Source Dec 22, 2023 03:36 PM GENERAL MEDICINE N OTE: LOCAL TITLE: General Note PB STANDARD TITLE: GENERAL MEDICINE NOTE DATE OF NOTE: DEC 22, 2023@15:36 ENTRY DATE: DEC 22, 2023@15:36:20 AUTHOR: MARICARMEN MENDOZA EXP COSIGNER: URGENCY: STATUS: COMPLETED Received hearing aid devices, certified in [place]. has pending appt for fitting /es/ MARICARMEN MENDOZA Telehealth Clinical Food Mobile Driver Signed: 12/22/2023 15:36 MARICARMEN MENDOZA [facility]
--- OUTSIDE RECORDS SUMMARY | 2024-01-14 08:01 | XMS_ITS ---
Author Name [facility] [place] Address [address] [place] [address] Care Team Providers Care Health Records Technology Teacher Name Role Phone TATO BARRAZA Primary Care [...] PART A Feb 21, 2009 PART A [id number] [phone] ANGELLA MARTIN PATIENT MEDICARE (WNR) MEDICARE (M) PART B Feb 21, 2009 PART B [id number] [phone] ANGELLA MARTIN PATIENT MEDICARE (WNR) MEDICARE (M) PART A Feb 21, 2009 PART A [id number] ANGELLA MARTIN PATIENT MEDICARE (WNR) MEDICARE (M) PART B Feb 21, 2009 PART B [id number] ANGELLA MARTIN PATIENT MEDICARE (WNR) MEDICARE (M) PART A Feb 21, 2009 PART A [id number] ANGELLA MARTIN PATIENT MEDICARE (WNR) MEDICARE (M) PART B Feb 21, 2009 PART B [id number] ANGELLA MARTIN PATIENT [employer] [place] [employer] PLAN F MEDIC ARE SUPPL EMENT 2013 PLAN F [id number] [phone] ANGELLA MARTIN PATIENT [employer] [place] [employer] [place] MEDIC[place] SUPPLEMEN [place] MEDIC ARE SUPPL EMENT 2013 PLAN F [id number] [phone] ANGELLA MARTIN PATIENT Selected Encounter This section includes the information on record at [place] for the Encounter. Date/Time Encounter Type Encounter Description Reason Provider Source Jan 14, 2024 01:01 PM HEARING AID CHECK BOTH EARS AUDIOLOGY ICD-10-CM Z46.1 Encounter for fitting and adjustment of hearing aid SHERIF CHOUDHURY RA [place] [facility] Encounter Template Text not used by [place] Assessments - Encounter Diagnoses This section includes the primary and secondary diagnoses documented for the Encounter. Date/Time Primary/Secondary Diagnosis Diagnosis Name Provider Source Jan 14, 2024 01:07 PM PRIMARY Encounter for fitting and adjustment of hearing aid SHERIF CHOUDHURY RA [place] [facility] Jan 14, 2024 01:07 PM SECONDARY Sensorineural hearing loss, bilateral SHERIF CHOUDHURY RA [place] [facility] Jan 14, 2024 01:07 PM SECONDARY Tinnitus, bilateral SHERIF CHOUDHURY RA [place] [facility] Plan of Treatment: Future Appointments (+ 6 months) and Future Tests (+/- 45 days) The Plan of Treatment section includes future care activities for the patient from all [place] treatmentfacilities. This section includes future appointments and future orders which are active, pending or scheduled. Future Appointments This section includes appointments that were scheduled to occur 6 months from the date of the Encounter, up to a maximum of 20 appointments. The data comes from all [place] treatment facilities. Appointment Date/Time Appointment Type Appointme nt Facility Name Feb 17, 2024 01:00 PM AMBULATORY - [place]IC[place] [facility] Feb 18, 2024 12:30 PM AMBULATORY - MEDIC[place] [facility] Mar 19, 2024 01:30 PM AMBULATORY - MEDICINE [facility] Mar 31, 2024 08:00 AM AMBULATORY - MEDICINE [place] [facility] Apr 08, 2024 10:20 AM AMBULATORY - NONE [place] [facility] Apr 08, 2024 11:00 AM AMBULATORY - MEDICINE [place] [facility] Apr 26, 2024 01:30 PM AMBULATORY - MEDICINE [facility] Apr 26, 2024 02:30 PM AMBULATORY - MEDICINE [facility] Jun 04, 2024 10:00 AM AMBULATORY - MEDICINE [facility] Jun 07, 2024 09:00 AM AMBULATORY - MEDICINE [facility] Radiology Reports: +/- 30 days of the [...] the Encounter. The data comes from all [place] treatment facilities. Date/Time Radiology Report Provider Source Dec 22, 2023 10:01 AM US RENAL COMPLETE: NISA MARTIN [id number] -1945 M Exm Date: DEC 22, 2023@10:01 Req Phys: TATO BARRAZA Pat Loc: OUTSIDE PB-ULTRASOUND (Req'g L Img Loc: OUTSIDE PB-ULTRASOUND Service: Unknown (Case [id number] COMPLETE) US RENAL COMPLETE (US Detailed) CPT:30068 Reason for Study: Exam imported from outside Clinical History: Original Data for Imported Study Patient Name: NISA MARTIN Date: 1945 Sex: M Study Date: 12/22/23 Study Time: 10:01:01 Study Description: US renal BI* [id number] Referring Physician: UNKNOWN, UNKNOWN Series 1: 49 US files, description: US renal BI* [id number] Acquisition site: [place] [id number] Report Status: Electronically Filed Date Reported: FEB 04, 2024 Report: Electronically generated report for outside study. Impression: Electronically generated report for outside study. VERIFIED BY: / *ELECTRONICALLY FILED* SHREYA GREEN [facility] Encounter Notes: All associated encounter notes This section contains the clinical notes associated to the Encounter. Date/Time Encounter Note(s) Provider Source Jan 14, 2024 07:58 AM AUDIOLOGY NOTE: LOCAL TITLE: HEARING CLINIC PB STANDARD TITLE: AUDIOLOGY NOTE DATE OF NOTE: JAN 14, 2024@07:58 ENTRY DATE: JAN 14, 2024@07:58:07 AUTHOR: BRANDY CHOUDHURY COSIGNER: URGENCY: STATUS: COMPLETED Diagnosis: Sensorineural Hearing Loss, Bilateral and Tinnitus, Bilateral Treatment: Hearing Aid Fitting Time spent with : 60 minutes seen for a hearing aid fitting via Audio Telehealth and verbally consented to the Telehealth modality. Multi-factor personally identifiable information of the was obtained verbally (full name and date of ). accompanied by: none Patient site: [facility] SUBJECTIVE: Patient is here for the issue of new hearing aids. Lackey is experienced with amplification. He is requesting to mail 2018 devices for repair. HEARING DEVICES: was fit with the following hearing devices and accessories today: 01/14/24 PHONAK AUDEO L90-RL FRED L [id number] 01/16/27 06/15/24 01/14/24 PHONAK AUDEO L90-RL FRED R [id number] 01/16/27 06/15/24 - P OYSTERMAN 5.0 - SIZE 3 - PHONAK CSHLL 4.0 ACRYLIC TAPER CANAL - CERUSTOP Phone Connectivity: no BACK UP HEARING DEVICES: 09/25/17 PHONAK AUDEO [id number] FRED L [id number] 09/25/17 PHONAK AUDEO I36-017I FRED R [id number] -XPOWER OYSTERMAN - SIZE 3 -CSHLL ACRYLIC MEDIUM SELECT A VENT TAPER CANAL REMOVAL FILAMENT -CERUSTOP OBJECTIVE/ASSESSMENT: Otoscopy was performed by collaboration of telehealth clinical multi care technician and provider via telehealth technology/video otoscope which revealed: Right: unremarkable Left: unremarkable Probe-Microphone Measures: Conformity evaluation was performed using real ear measures with NAL-NL2 ([employer]) targets. Maximum output was within the predicted upper limit of comfort. Hearing aids set to 80% target gain per patient subjective listening preference. Feedback merchandising manager completed. Familiarized patient with sound indicators (low battery signal, volume control, etc.). Device(s) issued in Remote Production Tool Engineer System. Physical Fit/Comfort: Good per patient. Sound Quality: Good per patient. Settings: - Programs: Automatic program - Push button: enabled - Volume control: short press - Program change: medium press - On/Off device: long press - Sound Recover: active Visual inspection of 2018 hearing aids revealed no defects. Devices will be sent for bandoleer packer repair per patient request and used as back-up devices in the future. DIRECT PATIENT EDUCATION-30 minutes Lac[place] educated on: - Use of batteries/portal architect - Hearing aid care and maintenance - Adjustment period/ importance of daily consistent use (8- 12hrs/day) - Realistic expectations - Effective communication strategies - Pet/child warning - Patient instructed not to wear devices in excessive noise - Installation and use of additional accessories - Ordering supplies through [facility] - Repair process - Trial period demonstrated how to: - Insert/remove hearing aid(s) - Adjust volume control/program switch - Change batteries/charge hearing aid(s) [place] was provided: - [place] aid manual [place] 2477b [place] was counseled/educated on services provided today and is in agreement with the plan. Patient was given clinic phone number and encouraged to contact the clinic as needs arise. PLAN: 1. Mail right/left 2018 devices for overhaul. Devices will be returned to direct through [facility]. 2. Patient is an experienced hearing aid user and did not wish to schedule a follow-up appointment at this time. IOI-MARIE provided to patient for completion in one month. /nichelle/ Afia Baca [facility] Signed: 01/14/2024 13:48 BRANDY CHOUDHURY [facility]
--- OUTSIDE RECORDS SUMMARY | 2024-03-17 10:48 | XMS_ITS | Encounter Summary ---
Author Name [facility] Address [address] [place] [address] Care Team Providers Care Weld Lay Out Worker Name Role Phone TATO BARRAZA Primary Care [...] PART A Feb 21, 2009 PART A [id number] [phone] ANGELLA MARTIN PATIENT MEDICARE (WNR) MEDICARE (M) PART B Feb 21, 2009 PART B [id number] ANGELLA MARTIN PATIENT MEDICARE (WNR) MEDICARE (M) PART A Feb 21, 2009 PART A [id number] ANGELLA MARTIN PATIENT MEDICARE (WNR) MEDICARE (M) PART B Feb 21, 2009 PART B [id number] ANGELLA MARTIN PATIENT MEDICARE (WNR) MEDICARE (M) PART A Feb 21, 2009 PART A [id number] [phone] MARTIN,ANGELLA E PATIENT MEDICARE (WNR) MEDICARE (M) PART B Feb 21, 2009 PART B [id number] ANGELLA MARTIN PATIENT [place] [employer] PLAN F MEDIC ARE SUPPL EMENT 2013 PLAN F [id number] [phone] ANGELLA MARTIN PATIENT [place] [employer] [place] MED[place] SUPPLEMEN [place] MEDIC ARE SUPPL EMENT 2013 PLAN F [id number] [phone] ANGELLA MARTIN PATIENT Selected Encounter This section includes the information on record at NH for the Encounter. Date/Time Encounter Type Encounter Description Reason Pro vider Source Mar 17, 2024 03:48 PM Outpatient Encounter ADMIN PAT ACTIVTIES (MASNONCT) IHE Encounter Template Text not used by NH Plan of Treatment: Future Appointments (+ 6 months) and Future Tests (+/- 45 days) The Plan of Treatment section includes future care activities for the patient from all NH treatmentfacilities. This section includes future appointments and future orders which are active, pending or scheduled. Future Appointments This section includes appointments that were scheduled to occur 6 months from the date of the Encounter, up to a maximum of 20 appointments. The data comes from all NH treatment facilities. Appointment Date/Time Appointment Type Appointme nt Facility Name Mar 19, 2024 01:30 PM AMBULATORY - MEDICINE [facility] Mar 31, 2024 08:00 AM AMBULATORY - MEDICINE [facility] Apr 08, 2024 10:20 AM AMBULATORY - NONE [facility] Apr 08, 2024 11:00 AM AMBULATORY - MEDICINE [facility] Apr 26, 2024 01:30 PM AMBULATORY - MEDICINE [facility] Apr 26, 2024 02:30 PM AMBULATORY - MEDICINE [facility] Jun 04, 2024 10:00 AM AMBULATORY - MEDICINE [facility] Jun 07, 2024 09:00 AM AMBULATORY - MEDICINE [facility] Aug 16, 2024 09:00 AM AMBULATORY - MEDICINE [facility] Aug 25, 2024 11:00 AM AMBULATORY - MEDICINE [facility] Active, Pending, and Scheduled Orders This section includes a listing of several types of active, pending, and scheduled orders, including clinic medications orders, diagnostic test orders, procedure orders and consult orders; where the start date of the order is 45 days before the date of the Encounter or 45 days after the date of theEncounter. The data comes from all NH treatment facilities. Test Date/Time Test Type Test Details Facility Name Apr 08, 2024 12:57 PM Consult Order [facility]-HEMODIALYSIS [id number] Cons Orthopedic Technician's Choice [facility] Social History: Smoking Status (Most current) and Tobacco Use (All prior to encounter date) This section includes the most current, and the historical, smoking and tobacco- related health factors from the NH facility where the Encounter took place. Current Smoking Status This section includes the most current smoking, or tobacco-related health factor, from the NH facility where the Encounter took place. Date/Time Current Smoking Status Comment Facil ity Jun 13, 2023 11:00 AM VA-TOBACCO FORMER USER [facility] Tobacco Use History This section includes a history of the smoking, or tobacco-related health factors, that were collected on or before the date of the Encounter. The data comes from the NH facility where the Encounter took place. Date/Time Smoking Status/Tobacco Use Comment F acility Jun 13, 2023 11:00 AM VA-TOBACCO QUIT 15 YRS OR MORE [facility] May 22, 2022 10:30 AM VA-TOBACCO FORMER USER [facility] May 22, 2022 10:30 AM VA-TOBACCO QUIT 15 YRS OR MORE [facility] May 24, 2021 09:00 AM VA-TOBACCO NEVER USED [facility] Feb 07, 2020 10:30 AM VA-TOBACCO FORMER USER [facility] Feb 07, 2020 10:30 AM VA-TOBACCO QUIT 15 YRS OR MORE [facility] Aug 04, 2018 03:05 PM VA-TOBACCO FORMER USER [facility] Aug 04, 2018 03:05 PM VA-TOBACCO QUIT 15 YRS OR MORE [facility] Jun 30, 2017 02:33 PM QUIT TOBACCO >7 YEARS AGO [facility] Sep 17, 2012 02:58 PM QUIT TOBACCO >7 YEARS AGO [facility] Nov 30, 2004 09:55 AM CURRENT NON-TOBACCO USER-HX OF [facility] Jul 03, 2004 01:41 PM CURRENT NON-TOBACCO USER-HX OF [facility] Sep 01, 2003 02:24 PM CURRENT NON-TOBACCO USER-HX OF [facility] Sep 16, 2002 10:15 AM CURRENT NON-TOBACCO USER-HX OF [facility] Encounter Notes: All associated encounter notes This section contains the clinical notes associated to the Encounter. Date/Time Encounter Note(s) Provider Source Mar 17, 2024 03:49 PM GENERAL MEDICINE N OTE: LOCAL TITLE: General Note PB STANDARD TITLE: GENERAL MEDICINE NOTE DATE OF NOTE: MAR 17, 2024@15:49 ENTRY DATE: MAR 17, 2024@15:49:06 AUTHOR: MARICARMEN MENDOZA EXP COSIGNER: URGENCY: STATUS: COMPLETED Eye Care At-Risk Screen : Patient identified to be at risk for the following eye condition(s): DIABETIC RETINOPATHY: Diabetes Diagnosis Information: Problem Diagnosis: 03/17/2024@15:49:15 62094246 (SNOMED CT) Polyneuropathy due to diabetes mellitus Date Entered: 06/09/2020; Date Last Modified: 06/09/2020 Status: ACTIVE; Priority: CHRONIC Prov. Narr. - Diabetic polyneuropathy MACULAR DEGENERATION: Macular Degeneration Risk Factors Information: Reminder Term: VA-AMD RISK FACTORS Encounter Diagnosis: 12/09/2023@10:30 I25.10 (ICD-10-CM) Atherosclerotic Heart Disease of [place] Coronary Artery without Angina Pectoris rank: SECONDARY Prov. Narr. - Atherosclerotic Heart Disease of [place] Coronary A Action: No Referral Ordered: Eye exam completed elsewhere by an Machine Operator Packaging or Animal Shelter Supervisor Diabetic retinal exam result: Negative for Retinopathy Date: January 08, 2024 Location: [facility] // MARICARMEN MENDOZA Telehealth Clinical Guest Services Representative Signed: 03/17/2024 15:49 MARICARMEN MENDOZA [facility]
--- OUTSIDE RECORDS SUMMARY | 2024-04-26 08:30 | XMS_ITS | Encounter Summary ---
Author Name [facility] [place] [facility] [place] Address [address] [place] [address] Care Team Providers Care Veterinary Physiologist Name Role Phone TATO BARRAAZ Primary Care Provider Unavailabl e Insurance Providers: [...] PART A Feb 21, 2009 PART A [id number] ANGELLA RENAE PATIENT MEDICARE (WNR) MEDICARE (M) PART B Feb 21, 2009 PART B [id number] [phone] ANGELLA RENAE PATIENT MEDICARE (WNR) MEDICARE (M) PART A Feb 21, 2009 PART A [id number] [phone] ANGELLA RENAE PATIENT MEDICARE (WNR) MEDICARE (M) PART B Feb 21, 2009 PART B [id number] ANGELLA RENAE PATIENT MEDICARE (WNR) MEDICARE (M) PART B Feb 21, 2009 PART B [id number] [phone] ANGELLA RENAE PATIENT MEDICARE (WNR) MEDICARE (M) PART A Feb 21, 2009 PART A [id number] ANGELLA RENAE PATIENT [place] [employer] [place] F MEDIC ARE SUPPL EMENT 2013 PLAN F [id number] [phone] ANGELLA RENAE PATIENT [place] SUPPLEMEN [place] MEDIC ARE SUPPL EMENT 2013 PLAN F [id number] [phone] ANGELLA RENAE PATIENT Selected Encounter This section includes the information on record at [place] for the Encounter. Date/Time Encounter Type Encounter Description Reason Provider Source Apr 26, 2024 01:30 PM MTMS BY PHARM ADDL 15 MIN CLINICAL PHARMACY ICD-10-CM E78.5 Hyperlipidemia, unspecified RADHA PINK [facility] Encounter Template Text not used by [place] Assessments - Encounter Diagnoses This section includes the primary and secondary diagnoses documented for the Encounter. Date/Time Primary/Secondary Diagnosis Diagnosis Name Provider Source Apr 26, 2024 11:38 AM PRIMARY Hyperlipidemia, unspecified RADHA PINK [facility] Apr 26, 2024 11:38 AM SECONDARY Type 2 diabetes mellitus with unspecified complications RADHA PINK [facility] Plan of Treatment: Future Appointments (+ 6 months) and Future Tests (+/- 45 days) The Plan of Treatment section includes future care activities for the patient from all [place] [facility] This section includes future appointments and future orders which are active, pending or scheduled. Future Appointments This section includes appointments that were scheduled to occur 6 months from the date of the Encounter, up to a maximum of 20 appointments. The data comes from all [place] treatment facilities. Appointment Date/Time Appointment Type Appointme nt Facility Name Jun 04, 2024 10:00 AM AMBULATORY - MEDICINE [facility] Jun 07, 2024 09:00 AM AMBULATORY - MEDICINE [facility] Aug 16, 2024 09:00 AM AMBULATORY - MEDICINE [facility] [facility] Aug 25, 2024 11:00 AM AMBULATORY - MEDICINE [facility] Sep 17, 2024 11:00 AM AMBULATORY - MEDICINE [facility] Oct 06, 2024 08:00 AM AMBULATORY - NONE [facility] Oct 06, 2024 10:00 AM AMBULATORY - MEDICINE [facility] Active, Pending, and Scheduled Orders This section includes a listing of several types of active, pending, and scheduled orders, including clinic medications orders, diagnostic test orders, procedure orders and consult orders; where the start date of the order is 45 days before the date of the Encounter or 45 days after the date of theEncounter. The data comes from all [place] treatment facilities. 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 Date/Time Temperature Pulse Blood Pressure Respiratory Rate SP02 Pain Height Weight Body Mass Index Source Apr 26, 2024 03:00 PM 97.8 68 129/65 [address] [facility] Social History: Smoking Status (Most current) and Tobacco Use (All prior to encounter date) This section includes the most current, and the historical, smoking and tobacco- related health factors from the [place] facility where the Encounter took place. Current Smoking Status This section includes the most current smoking, or tobacco-related health factor, from the [place] facility where the Encounter took place. Date/Time Current Smoking Status Comment Facil ity Jun 13, 2023 11:00 AM VA-TOBACCO QUIT [address] [facility] Tobacco Use History This section includes a history of the smoking, or tobacco-related health factors, that were collected on or before the date of the Encounter. The data comes from the [place] facility where the Encounter took place. Date/Time Smoking Status/Tobacco Use Comment F acility Jun 13, 2023 11:00 AM VA-TOBACCO QUIT 15 YRS OR MORE [facility] [place] [facility] May 22, 2022 10:30 AM VA-TOBACCO FORMER USER [facility] [place] [facility] May 22, 2022 10:30 AM VA-TOBACCO QUIT 15 YRS OR MORE [facility] May 24, 2021 09:00 AM VA-TOBACCO NEVER USED [place] [place] [facility] Feb 07, 2020 10:30 AM VA-TOBACCO FORMER USER [facility] [place] [facility] Feb 07, 2020 10:30 AM VA-TOBACCO QUIT 15 YRS OR MORE [facility] Aug 04, 2018 03:05 PM VA-TOBACCO FORMER USER [facility] [place] [facility] Aug 04, 2018 03:05 PM VA-TOBACCO QUIT 15 YRS OR MORE [facility] Jun 30, 2017 02:33 PM QUIT TOBACCO >7 YEARS AGO [facility] Sep 17, 2012 02:58 PM QUIT TOBACCO >7 YEARS AGO [facility] Nov 30, 2004 09:55 AM CURRENT NON-TOBACCO USER[facility] Jul 03, 2004 01:41 PM CURRENT NON-TOBACCO USER-[facility] OF [facility] Sep 01, 2003 02:24 PM CURRENT NON-TOBACCO USER-[facility] OF [facility] Sep 16, 2002 10:15 AM CURRENT NON-TOBACCO USER-HX OF [facility] Encounter Notes: All associated encounter notes This section contains the clinical notes associated to the Encounter. 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 by social security and full name service connected status: not connected Was the personal/phone visit directly with the patient or immediate pulmonary care nurse: YES-patient Subjective: 1. Missed doses or extra doses or pt. stopping any medications: NO saw today in clinic to re-review prior lab values, in which HA1c was decreased and lipids were better controlled, but unfortunately kidney function has continued to decrease, but slowly and is now on dialysis currently; discussed how he is taking both bolus and prandial insulins; patient is now once again taking insulin glargine at 40 units in the morning and is using reg. human novolin insulin on modified sliding scale from 15 to 20 units, depending on accurate use of CGM monitoring and meal consistency on an individualized meal basis; pt. had last chemotherapy med. with accompanying prednisone, which caused his B/G to vastly increase and compensated with increased insulin glargine per aid of CGM, but has again reduced dose back to close to normal after finishing therapy from non-[facility] oncology; reviewed CGM data; also advised patient to continue on lipid-lowering therapy; patient also had recent fecal test, which was neg. for occult blood; was found to have norovirus which is now resolved, but did contribute to patients eGFR of 18 on recent labs; patient must cont. 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 got appointment with a new non-[place] local oncologist who replaced former practitioner; patient to also get CT scan of pelvis and abdomen for a nodule appearing in right abdominal quadrant on recent x-ray; patient to drink more water; patient ask about OTC simethicone for excess gas and advised only minimal amount; cont. docusate and can obtain OTC PEG 3350 at 1 capful daily for hemorroids after recent hosp. stay; cont. all spec. appts., olivia. oncology for f/u of leukemia and nephrology for CKD stage 4 and hemodialysis management 2. [x] med. compliance-occasionally misses doses of prandial insulin [-} weight gain- [x] weight loss- pt. had lost abut 8 pounds of weight, due to fecal viral infection [-] hypoglycemia symptoms or values <70 mg/dL- [-] hyperglycemia symptoms- [x] rule of 15 discussed/checked [-] hypotension symptoms or values <90/60 mmHg- [-] hypertension symptoms- [x] Dietary modifications made- pt. continues to make acceptable strides in meal planning [-] Changes in lifestyle or social history- [-] tobacco use disorder counseling- [-] Lung abnormalities: [-] COPD [-] emphysema [-] asthma [-] other related SOB issues [-] oxygen use at home [-] Adverse effects of antilipemic agents-muscle pain/weakness, GI upset, or flushing) [-] Mental Health med. evaluation- none [x] Shared medical decision making- occurred during this visit with the Objective: seemed alert and oriented; no headache, blurred vision, dizziness, or extreme fatigue; denies chest pains, shortness of breath, or edema; reports he generally feels - fair, due to prior chemother. and CKD, nad now hemodialysis Weight: Patient Weight History - Last Four 1. 232.0 lbs. / 105.2 kg. on DEC 09, 2023@10:42:25 2. 241.0 lbs. / 109.3 kg. on OCT 10, 2023@09:40:22 3. 241.4 lbs. / 109.5 kg. on OCT 08, 2023@11:46:57 4. 239.6 lbs. / 108.7 kg. on JUN 13, 2023@11:21:37 BMI: 34.6 Height: 70 in [177.8 cm] (12/17/2022 11:16) Pertinent Labs: HGB A1C Collection DT Specimen Test Name Result Units Ref Range 12/03/2023 10:12 BLOOD HGA1C 6.8 H % 4.0 - 6.0 06/05/2023 11:40 BLOOD HGA1C 7.3 H % 4.0 - 6.0 12/10/2022 11:25 BLOOD HGA1C 7.6 H % 4.0 - 6.0 05/13/2022 11:21 BLOOD HGA1C 6.4 H % 4.0 - 6.0 LIVER FUNCTION PANEL Labs: triglyceride cholesterol LDL values are high TRIGLYCERIDE 74 mg/dL 12/03/2023 10:12 CHOLESTEROL 121 mg/dL 12/03/2023 10:12 HDL(New) 27.0 L mg/dL 12/03/2023 10:12 CALCULATED LDL 79.2 mg/dL 12/03/2023 10:12 HDL % OF TOTAL CHOLESTEROL (PB) 22.3 % 12/03/2023 10:12 No DIRECT LDL EO data found Liver Function Tests: values are within acceptable limit SGOT: 8 U/L (12/03/23 10:12) SGPT: <6 U/L L (12/03/23 10:12) Chemistry: Sodium: SODIUM 135 L mEq/L 12/03/2023 10:12 POTASSIUM 4.3 mEq/L 12/03/2023 10:12 Chloride: 104 mEq/L (12/03/23 10:12) BUN: 48 mg/dL H (12/03/23 10:12) Glucose: GLUCOSE 207 H mg/dL 12/03/2023 10:12 ALT/SGPT <6 L U/L 12/03/2023 10:12 AST/SGOT 8 U/L 12/03/2023 10:12 Renal function: Creatinine Clearance: 21.3mL/min CREATININE 3.36 H mg/dL 12/03/2023 10:12 EGFR (CKD-EPI 2020) 18 12/03/2023 10:12 No MICRAL/CREAT RATIO (STL) data found Creatine phosphokinase test: not evaluated ____ Hepatitis C Antibody [place] [facility] Hep C tests in last five years. *No Lab Data Found* Calculated 10 year cardiovascular risk is: Not calculated; patient exceeds threshold -- Physical monitoring parameters: B/P, edema, renal function, electrolytes, s/s of dizziness/drowsiness HTN: Assessment/Plan - older diagnosis - (evaluated at this time); Pt is monitored by PCP (consulted) Goal: per 2021 ACC/AHA guidelines; Recommendation 10.4 on blood pressure treatment goals in individuals with diabetes was revised to target a blood pressure of less than 130/80; Blood pressure target is usually below 140/90 for people with diabetes or below 150/90 if aged 80 years or above; for patients with kidney disease the target may be below 130/80 *Normal = less than 120 and less than 80 *Elevated = 120-129 and greater than 80 *High Blood Pressure Stage 1 = 130-139 or 80-89 *High Blood Pressure Stage 2 = 140 or higher or 90 or higher *Hypertensive Crisis (call provider immediately) = Higher than 180 and/or higher than 120 *Goal is reduced to <140/90 with accompanying T2D and > 60 years old per VA/DoD guidelines *Per Up-To-Date for older adults: in most older adults (defined as age 65 years or older), suggest a less aggressive systolic goal blood pressure of 135 to 140 routinely -Pt. most recent blood pressure: 117/62 on Nov in clinic, 132/71 on Nov in clinic, 120/60 on Sep in clinic, 103/63 on 17 DEC 2022 in clinic, 144/68 on 02 SEP 2022 in clinic, 158/60 on 22 MAY 2022 per clinic, 147/69 per clinic monitoring on 23 NOV 2021 -Last home monitoring was 121/67 on Mar, 132/69 on Dec, 129/69 on 18 NOVEMBER, 125/71 on Aug, 121/69 on Jun, 117/65 on 03 APR 2023, 118/67 on 31 DEC 2022, 139/67 on 06 SEP 2022, 136/68 on 18 JUL 2022 -Pt.is on: metoprolol tart. decreased to 25 mg twice daily and isosorbide mononitrate increased to 120 form 90 mg SA tablet daily; nifedipine increased to 60mg from prior 30 mg SA tablets and clonidine 0.1mg was added at as needed for additional control, but pt. has not used due to careful B/P monitoring -Pt. also states greatly increased sleep deprivation with increased metoprolol dose; patient has been on increased metoprolol 2 years prior and states decreased sleep also at that time; patient to follow-up with original ssrs developer to try and sort out adequate blood pressure medication with combined sleep disturbances -Patient to continue careful log of blood pressure values upon arising, mid afternoon and bedtime; last month have shown blood pressure to be in the low 130s/ mid 70s range -Pt. blood pressure is highly sporadic but still controlled for age category and multiple comorbidities, also must consider kidney effects; pt. did get values at last clinic appt. and still controlled, but asked to re-do at next clinic appt. DM: Assessment/Plan - older diagnosis - (evaluated at this time); Pt is monitored by PCP (consulted) -Glycemic goal: A1C <8 w/o episode of hypoglycemia; fasting bg 80-130; 1.5 hours PP <180; 2 hours PP <140; Bedtime <140 -Contact the clinic if you have a blood glucose less than 70 (after you follow the rule of 15) or blood glucose greater than 300 -Pt. most recent HA1c was 6.8 with B/G of 207[not fasting] decreased from 7.3 with B/G of 69 on 05 JUN 2023 decreased from 7.6 with B/G of 105 on 10 DEC 2022 increased from 6.4 with measured B/G at 115 on 13 MAY 2022 and prior was 8.3 on 23 NOV 2021 and also on 25 MAY 2021 -Pt. is on: allergic to metformin; insulin glargine reduced to 35 units every morning from previous twice daily and novolin regular insulin 15 unit base [from 10 to 20 units per mod. sliding scale] before meals has been drastically reduced and sometimes discontinued, but must watch addition of prednisone 10-20mg to accompany chemo. meds. per oncology; patient is very familiar now with CGM monitoring per epi freestyle-2 and is capable of adjusting his amount of insulin glargine per caloric intake daily; see below for CGM data and B/G averages -Data was accessed and interpretation of collected parameters per AGP report: TIR:84%; IQR:22%/78%; ave. scans/day:9; BT: 1%; AT:79%; VHT:2%; VLT:1%; coefficient/alton.:25; GMI at 70-180 is 90% also for interpretation of collected parameters; corrct monitoring achieved; pt. has cont. to improve use of tool overall and B/Gs have cont. to be reduced; also reviewed some additional points of CGM teaching for epi freestyle-2 and basal and prandial insulin according to prior reflux extract of data -Target for Time in Range: Above 250 mg/dL = < 5% / Above 180 mg/dL = < 25% / Target Range (70 - 180 mg/dL) = > 70% / Less than 70 mg/dL = < 4% / Less than 54 mg/dL = < 1% -Checked patient B/G values per CGM and have ranged from the 110s to 170s in the last week, but are increased to the 250s to 320s after usual chemo. infusion and steroid admin. 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 has almost mastered, but must keep HA1c in less than 7.5 range, but currently at 6.8, which is good with pts. many complications Medication profile management and general reconciliation: all medications reviewed; patient does not experience problems or side effects; patient to continue vitamin D3 100 mcg daily, magnesium oxide supplement, both insulins, lipid, and B/P medication, sodium zirconium cyclo-salicylate powder, fluticasone nasal, loratadine, asa 81mg, clopidogrel, fluticasone nasal, finasteride, and tamsulosin 0.8 mg; patient also has nitroglycerin sublingual 0.4 mg if necessary, nifedipine increased to 60mg from prior 30 mg SA tablets and isosorbide mononitrate 120mg daily was added / pt. started on new chemo.- zanubrutinib at 80mg 2 capsule twice daily, but pt. had side effects after the first course, but continues; also cont. all other chronic meds.; can obtain PEG 3350 at 1 capful daily, if needed for bleeding hemorriods after recent hosp. stay ans cont. 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 NOT MORE THAN 8 GRAMS DAILY TO ANY UPPER EXTREMITY JOINT. MAX 32GM/DAY OVER ALL JOINTS. (MEASURE DOSE WITH RULER ATTACHED INSIDE BOX) 2) FINASTERIDE 5MG TAB TAKE ONE TABLET BY MOUTH ONCE A ACTIVE DAY SWALLOW WHOLE, DO NOT CRUSH, SPLIT, OR CHEW. 4) FLUTICASONE PROP 50MCG 120D NASAL INHL INSTILL 1 ACTIVE SPRAY IN NOSTRIL(S) ONCE A DAY FOR ALLERGIES (MUST BE USED DIRECTED FOR MINIMUM OF 21 DAYS TO PROVIDE ADEQUATE BENEFITS) 5) INSULIN REG HUMAN 100 UNIT/ML NOVOLIN R INJECT 10 ACTIVE UNITS UNDER THE SKIN EVERY MORNING BEFORE A MEAL FOR DIABETES ADMINISTER 30 MINUTES BEFORE FOOD DIRECTED. DISCARD 30 DAYS AFTER OPENING. PER SLIDING SCALE 6) INSULIN,GLARGINE-YFGN 100UNIT/ML INJ INJECT 35 UNITS ACTIVE UNDER THE SKIN EVERY MORNING FOR DIABETES (AT SAME TIME EACH DAY) - (DISCARD ANY UNUSED PORTION 28 DAYS AFTER OPENING) 7) ISOSORBIDE MONONITRATE 60MG SA TAB TAKE ONE AND ACTIVE ONE-HALF TABLETS BY MOUTH ONCE A DAY TO PREVENT CHEST PAIN. TAKE ON EMPTY STOMACH. SWALLOW WHOLE. DO NOT CRUSH OR CHEW. 8) METOPROLOL TARTRATE 100MG TAB TAKE ONE-HALF TABLET BY ACTIVE MOUTH TWICE A DAY FOR HEART/BLOOD PRESSURE. TAKE WITH OR IMMEDIATELY FOLLOWING FOOD. 9) NIFEDIPINE (EQV-CC) 60MG SA TAB TAKE ONE TABLET BY ACTIVE MOUTH ONCE A DAY FOR HIGH BLOOD PRESSURE PREFERABLE TO TAKE ON EMPTY STOMACH. SWALLOW WHOLE; DO NOT CRUSH OR CHEW. AVOIDGRAPEFRUIT JUICE. 10) NITROGLYCERIN 0.4MG SL TAB DISSOLVE ONE TABLET UNDER ACTIVE THE TONGUE ONE-TIME NEEDED FOR CHEST PAIN; IF NO IMPROVEMENT AFTER FIRST DOSE CALL 9-1-1. MAY TAKE 2 ADDITIONAL DOSES, 5 MINUTES APART 11) SODIUM ZIRCONIUM CYCLOSILICATE 10GM/PKT MIX AND DRINK ACTIVE 10GM/PKT BY MOUTH EVERY OTHER DAY 12) TAMSULOSIN HCL 0.4MG CAP TAKE TWO CAPSULES BY MOUTH ACTIVE EVERY EVENING APPROXIMATELY 30 MINUTES AFTER THE SAME MEAL EACH DAY (FOR PROSTATE) Inactive Outpatient Medications Status 1) ASPIRIN 81MG EC TAB TAKE ONE TABLET BY MOUTH ONCE A DAY FOR HEART OR CIRCULATION. TAKE WITH FOOD. 2) CHOLECALCIF 50MCG (D3-2,000UNIT) TAB TAKE TWO TABLETS BY MOUTH ONCE A DAY FOR VITAMIN D DEFICIENCY. 3) CLOPIDOGREL BISULFATE 75MG TAB TAKE ONE TABLET BY MOUTH ONCE A DAY TO THIN BLOOD 4) FISH OIL 1000MG (500MG DHA/EPA) CAP TWO CAPSULES BY MOUTH TWICE A DAY TO LOWER TRIGLYCERIDES TAKE WITH MORNING AND EVENING MEALS 5) LORATADINE 10MG TAB TAKE ONE TABLET BY MOUTH ONCE A DAY ON EMPTY STOMACH FOR ALLERGIES 6) MAGNESIUM OXIDE 400MG TAB TAKE ONE TABLET BY MOUTH ONCE A DAY 18 Total Medications LIPID PROFILE - High cholesterol and triglycerides (lipids) are risk factors for heart disease. Cholesterol should fall between 140 and 200, and triglycerides levels should be less than or equal to 150. HDL is the good cholesterol and should ideally be greater than 40. LDL is the bad cholesterol and optimal levels should be less than 100 (near optimal is between 100 and 129) LIPID Therapeutic goals: (consulted) [place]/[facility] guideline; triglycerides <150 & cholesterol 140-200 & HDL > 40 & LDL <100 Assessment: 1. The pt is currently on lipid or other necessary medication? If so List: Atorvastatin 10 mg every evening which is controlling all lipid values 2. Compliance per pt response? YES cautioned patient about being more compliant with insulin dosing, cont. glargine at 35 units, but especially insulin aspart or patient has a modified scale from 3 to 20 units depending entirely on dietary issues and patient must be more mindful of matching CGM readings to dietary consumption based on amount of insulin aspart at each meal; Pt states he will not skip/miss doses Plan: 1) --Lipid lowering agent and dose: per ACC/AHA guidelines for ASCVD, however shared decision making is a goal: lipids again controlled [low intensity statin]- stopped current dose of atorvastatin 10 mg every evening, due to lowered values on sub. labs, but re-ordered after last labs; re- ordered [place] fish oil at 1000mg twice daily, but told pt. he would need to switch to OTC product, due to discontinuation from [place] formulary and increased to 2000mg twice daily with meals 2) --PT instructed to contact Lipid clinic if they have medication changes (new medications or stopped medications) --Overall Plan: continue lipid meds., as stated above, both insulin glargine at 35 units and reg. novolin insulins at 15 unit base and may decrease or increase novolin depending on accurate use of CGM and caloric intake at each individual meal / pt. must watch for additional chemo. 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 pacemaker; pt. was started on new chemo.-zanubrutinib at 80mg 2 capsules twice capsule daily, as tolerated and pt. did have problems after first course, but did finish cycle; pt. did get an appointment with a new local non[place] oncologist who replaced former practitioner; also got CT scan of pelvis and abdomen for a nodule appearing in right abdominal quadrant on recent x-ray; also advised patient to cont. docusate stool softner and drink more water, as he now has sl. bleeding hemorriods; patient ask about OTC simethicone for excess gas and advised only minimal amount; can obtain PEG 3350 at 1 capful daily, if needed; keep all spec. appts., olivia. oncology for f/u of leukemia and nephrology for CKD stage 4 --Specific information about medication(s): use of reg. human insulin dosing per CGM --Diet Interventions: discussed minimizing the intake of trans fats, processed meats, refined carbohydrates, and sweetened beverages as part of a heart healthy diet -Discussed with pt. the Nutrient basic Composition of the TLC Diet and to cont. to closely monitor his chosen low fat/low carb diet carefully and cont. to plan better meals daily -Encouraged low salt and decreased caffeine intake -Saturated fat < 7 percent of total calories. -Polyunsaturated fat Up to 10 percent of total calories. -Monounsaturated fat Up to 20 percent of total calories. -Total fat 25-35 percent of total calories. -Carbohydrate 50-60 percent of total calories. Carbohydrate should be derived predominantly from foods rich in complex carbohydrates including grains, especially whole grains, fruits, and vegetables. -Fiber 20-30 g/day. -Protein Approximately 15 percent of total calories. -Cholesterol Less than 200 mg/day. --Weight management: Weight Loss: Plasma triglyceride and LDL tend to decrease and HDL levels tend to increase in obese persons who lose weight; pt. is working on slow weight reduction as chemo. ther. allows, but has lost 2 pounds last month --Increased physical activity as indicated: Aerobic exercise has a modest elevating effect on plasma levels of HDL in most persons but has cardiovascular benefits that extend beyond the effects on plasma lipid levels. ADA recommends 150min/week (distributed over at least 3 days) of moderated aerobic physical activity); stressed to pt. that a routine daily exercise program consisting of 25 to 30 minutes of walking exercise should be started and maintained if at all possible; patient continues to do walking exercise around [place] --Future Appointments: 04/26/2024 11:00 [facility] --Precautions: patient was instructed to seek medical attention immediately if they experience any signs or symptoms of severe muscle pain/chest pain or gastrointestinal difficulties; patient did not report any side effects from diabetic/lipid/HTN medications; stressed the importance of medication adherence --Discrepancies: compared newly ordered medications and medication changes to pertinent active medications and non-VA medications and then reviewed medications with patient and/or caregiver; all discrepancies noted and reconciled; reviewed pertinent labs; potential adverse reactions of new medications were also discussed with the patient; all discrepancies noted and reconciled --Consult(s): will be placed to: Cardiology, nephrology, urology, new provider for oncology/hematology -- in agreement with plan and voices understanding: yes --Next lab date: May; the patient repeat labs will be scheduled; pt understands labs are fasting; will alert staffing clerk to schedule next lab and appointment --PID: Next follow up date: May; in conj. with PCP appt.;f/u to labs from May; check CGM values and med. compliance at this appt.; will alert staffing clerk to schedule this check status appt --Thanked for their time and expressed my pleasure to serve them I have communicated previous lab results to patient and the voiced understanding ---Please note that this dictation was completed with computer recognition software, often unanticipated grammatical, syntax and other interpretive errors are inadvertently transcribed by the computer software. Please disregard these errors--- Time spent: 46 minute(s)- also reviewed CGM data TELEPHONE CONTACT NO - FACE TO FACE YES PBM PharmD Pharmacotherapy Rem V12: PHARMACIST INTERVENTIONS: LIPID MANAGEMENT Medication monitoring, no dosage change required, continue to monitor and assess Plan: patient to continue atorvastatin 80 mg every evening and re- ordered VA fish oil, due to pt. failure to acquire OTC product, but pt. must obtain OTC product, when [facility] supply runs out and will cont. at 2000 mg twice daily before morning and evening meals, also cont. insulin glargine at 40 units every morning and reg. novolin insulin at mod. scale from 15-20 unit base before meals and may decrease or increase depending on accurate use of CGM and caloric intake at each individual meal, continue magnesium oxide vitamin D3 supplements, stopped sodium zirconium cyclo-salicylate powder, cont. asa 81mg ECT, clopidogrel, fluticasone nasal, loratadine, diclofenac gel, metoprolol tart. 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 must watch for any additional chemo. admin. / also continue excellent monitoring with CGM for prandial insulin determination / cont. 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 / in view of new abd. nodule, asked pt. to get an appointment with new non-[facility] local oncologist, which replaced prior practitioner and started on new chemo.-zanubrutinib at 80mg 2 caps. twice daily with prednisone 20mg daily; pt. had issues after completing a the first course, but has cont. and now has completed course / also got CT scan of pelvis and abdomen for a nodule appearing in right abd. quadrant on recent x-ray / also advised patient to drink more water, as he has started dialysis; patient ask about OTC simethicone for excess gas and advised only minimal amount / pt. also now has hemorroids wiyh small amount of bleeding after recent hosp. stay, and can obtain PEG 3350 at 1 capful daily, if needed and cont. docusate for stool softening / keep all spec. appts. /es/ Stephenie VARELA [employer] SERVICE TECHNICIAN Signed: 04/26/2024 14:39 Receipt Acknowledged By: 04/28/2024 10:22 /es/ RADHA ZAMBRANO [facility]
--- OUTSIDE RECORDS SUMMARY | 2024-04-26 09:30 | XMS_ITS | Encounter Summary ---
Author Name [facility] [place] Organization [facility] [place] Address [address] [place] [address] Care Team Providers Care Quilting Supervisor Name Role Phone TATO SANDOVAL Primary Care Provider Unavailabl e Insurance Providers: [...] PART A Feb 21, 2009 PART A [id number] ANGELLA MARTIN PATIENT MEDICARE (WNR) MEDICARE (M) PART B Feb 21, 2009 PART B [id number] [phone] ANGELLA MARTIN PATIENT MEDICARE (WNR) MEDICARE (M) PART A Feb 21, 2009 PART A [id number] [phone] ANGELLA MARTIN PATIENT MEDICARE (WNR) MEDICARE (M) PART B Feb 21, 2009 PART B [id number] ANGELLA MARTIN PATIENT MEDICARE (WNR) MEDICARE (M) PART B Feb 21, 2009 PART B [id number] [phone] ANGELLA MARTIN PATIENT MEDICARE (WNR) MEDICARE (M) PART A Feb 21, 2009 PART A [id number] ANGELLA MARTIN PATIENT [employer] [place] [employer] PLAN F MEDIC ARE SUPPL EMENT 2013 PLAN F [id number] [phone] ANGELLA MARTIN PATIENT [employer] [place] [employer] MED[employer] SUPPLEMEN [place] MEDIC ARE SUPPL EMENT 2013 PLAN F [id number] [phone] ANGELLA MARTIN PATIENT Selected Encounter This section includes the information on record at [place] for the Encounter. Date/Time Encounter Type Encounter Description Reason Provider Source Apr 26, 2024 02:30 PM OFFICE O/P EST MOD 30 MIN PRIMARY CARE/MEDICINE ICD-10-CM I50.9 Heart failure, unspecified TATO SANDOVAL Encounter Template Text not used by [place] Assessments - Encounter Diagnoses This section includes the primary and secondary diagnoses documented for the Encounter. Date/Time Primary/Secondary Diagnosis Diagnosis Name Provider Source May 05, 2024 11:03 AM PRIMARY Heart failure, unspecified [facility] May 05, 2024 11:03 AM SECONDARY Cardiomyopathy, unspecified [facility] May 05, 2024 11:03 AM SECONDARY Chronic kidney disease, stage 4 (severe) TATO SANDOVAL [facility] May 05, 2024 11:03 AM SECONDARY Essential (primary) hypertension TATO SANDOVAL [facility] May 05, 2024 11:03 AM SECONDARY Type 2 diabetes mellitus with diabetic nephropathy TATO SANDOVAL [facility] May 05, 2024 11:03 AM SECONDARY Type 2 diabetes mellitus with unspecified complications TATO SANDOVAL [facility] Plan of Treatment: Future Appointments (+ 6 months) and Future Tests (+/- 45 days) The Plan of Treatment section includes future care activities for the patient from all [place] treatmentfacilities. This section includes future appointments and future orders which are active, pending or scheduled. Future Appointments This section includes appointments that were scheduled to occur 6 months from the date of the Encounter, up to a maximum of 20 appointments. The data comes from all [place] treatment facilities. Appointment Date/Time Appointment Type Appointme nt Facility Name Jun 04, 2024 10:00 AM AMBULATORY - MEDICINE [facility] Jun 07, 2024 09:00 AM AMBULATORY - MEDICINE [facility] Aug 16, 2024 09:00 AM AMBULATORY - MEDICINE [facility] Aug 25, 2024 11:00 AM AMBULATORY - MEDICINE [facility] Sep 17, 2024 11:00 AM AMBULATORY - MEDICINE [facility] Oct 06, 2024 08:00 AM AMBULATORY - NONE [facility] Oct 06, 2024 10:00 AM AMBULATORY - MEDICINE [facility] Active, Pending, and Scheduled Orders This section includes a listing of several types of active, pending, and scheduled orders, including clinic medications orders, diagnostic test orders, procedure orders and consult orders; where the start date of the order is 45 days before the date of the Encounter or 45 days after the date of theEncounter. The data comes from all [place] treatment facilities. Test Date/Time Test Type Test Details Facility Name Apr 08, 2024 12:57 PM Consult Order [facility]-HEMODIALYSIS [id number] Cons D[facility]ge [facility] Vital Signs: All taken on the encounter date This section contains inpatient and outpatient Vital Signs collected on the date of the Encounter. Date/Time Temperature Pulse Blood Pressure Respiratory Rate SP02 Pain Height Weight Body Mass Index Source Apr 26, 2024 03:00 PM 97.8 68 129/65 18 95 0 231.4 32 [facility] Social History: Smoking Status (Most current) and Tobacco Use (All prior to encounter date) This section includes the most current, and the historical, smoking and tobacco- related health factors from the [place] facility where the Encounter took place. Current Smoking Status This section includes the most current smoking, or tobacco-related health factor, from the [place] facility where the Encounter took place. Date/Time Current Smoking Status Comment Facil ity Jun 13, 2023 11:00 AM [place]-TOBACCO QUIT 15 YRS OR MORE [facility] Tobacco Use History This section includes a history of the smoking, or tobacco-related health factors, that were collected on or before the date of the Encounter. The data comes from the [place] facility where the Encounter took place. Date/Time Smoking Status/Tobacco Use Comment F acility Jun 13, 2023 11:00 AM [place]-TOBACCO QUIT 15 YRS OR MORE [facility] May 22, 2022 10:30 AM VA-TOBACCO FORMER USER [facility] May 22, 2022 10:30 AM VA-TOBACCO QUIT 15 YRS OR MORE [facility] May 24, 2021 09:00 AM VA-TOBACCO NEVER USED [facility] Feb 07, 2020 10:30 AM VA-TOBACCO FORMER USER [facility] Feb 07, 2020 10:30 AM VA-TOBACCO QUIT 15 YRS OR MORE [facility] Aug 04, 2018 03:05 PM VA-TOBACCO FORMER USER [facility] Aug 04, 2018 03:05 PM VA-TOBACCO QUIT 15 YRS OR MORE [facility] Jun 30, 2017 02:33 PM QUIT TOBACCO >7 YEARS AGO [facility] Sep 17, 2012 02:58 PM QUIT TOBACCO >7 YEARS AGO [facility] Nov 30, 2004 09:55 AM CURRENT NON-TOBACCO USER-[facility]X OF [facility] Jul 03, 2004 01:41 PM CURRENT NON-TOBACCO USER-[facility]X OF [facility] Sep 01, 2003 02:24 PM CURRENT NON-TOBACCO USER-[facility]X OF [facility] Sep 16, 2002 10:15 AM CURRENT NON-TOBACCO USER-[facility]X OF [facility] Encounter Notes: All associated encounter notes This section contains the clinical notes associated to the Encounter. 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 He did have an initial elevated troponin but this was secondary to the other factors not a STEMI or non-STEMI. He has now on hemodialysis he has completed 2 weeks of outpatient dialysis he receives it on Tuesdays and Friday. His amlodipine has been stopped and he has not actually taken his nifedipine for the last week due to low blood pressures. He is currently only taken his Lasix on his nondialysis days. He does report a raw area in his gluteal fold from being in the hospital and using plastic underwear. Non-VA Primary Care Provider Dr. Orozco Specialty Services: Oncology, Dr. Mann Urology, Dr. Benavidez Cardiology, Dr. De Anda Nephrology, Dr. 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 WHILE ON ACTIVE DUTY: SURGICAL HX: Coronary stents x 2 Appendectomy CABG quad Problem List: 1) Type 2 diabetes mellitus (SNOMED CT 83154994) 2) HTN - Hypertension (SNOMED CT 24883439) 3) Coronary artery disease (SNOMED CT 42303334) 4) Diabetic nephropathy 5) HLD - Hyperlipidemia (SNOMED CT 67918541) 6) CLL - Chronic lymphocytic leukemia (SNOMED CT 16484098) 7) Cardiac pacemaker in situ 8) GERD - Gastro-esophageal reflux disease 9) Allergic rhinitis 10) Pain of left elbow joint 11) BPH - benign prostatic hyperplasia 12) Diabetic polyneuropathy 13) Hearing loss 14) Chronic kidney disease stage 4 15) Cerebrovascular accident 16) TIA 17) Carotid artery narrowing 18) Exposure to potentially hazardous substance 19) Sensorineural hearing loss of bilateral ears 20) Bilateral tinnitus 21) Renal mass Active Outpatient Medications (including Supplies): Active Outpatient Medications Status 1) ATORVASTATIN CALCIUM 80MG TAB TAKE ONE TABLET BY ACTIVE (S) MOUTH EVERY EVENING FOR HIGH CHOLESTEROL TAKE ORALLY WITH EVENING MEAL 2) DICLOFENAC NA 1% TOP GEL APPLY 2 GM TO AFFECTED ACTIVE AREA(S) ONCE A DAY FOR PAIN/INFLAMMATION; NOT MORE THAN 16 GRAMS DAILY TO ANY LOWER EXTREMITY JOINT. NOT MORE THAN 8 GRAMS DAILY TO ANY UPPER EXTREMITY JOINT. MAX 32GM/DAY OVER ALL JOINTS. (MEASURE DOSE WITH RULER ATTACHED INSIDE BOX) 3) FINASTERIDE 5MG TAB TAKE ONE TABLET BY MOUTH ONCE A ACTIVE DAY SWALLOW WHOLE, DO NOT CRUSH, SPLIT, OR CHEW. 4) FLUTICASONE PROP 50MCG 120D NASAL INHL INSTILL 1 ACTIVE SPRAY IN NOSTRIL(S) ONCE A DAY FOR ALLERGIES (MUST BE USED DIRECTED FOR MINIMUM OF 21 DAYS TO PROVIDE ADEQUATE BENEFITS) 5) GLUCOSE SENSOR [employer] DONNELL 2 USE SENSOR EVERY ACTIVE 14 DAYS FOR BLOOD SUGAR MONITORING FOR CONTINUOUS GLUCOSE MONITORING. CHANGE SENSOR/SITE EVERY 14 DAYS. CONTACT [employer] CUST[facility]ER SERVICE AT ([id number]) FOR REPLACEMENT OF DAMAGED/MALFUNCTIONING SENSORS 6) LORATADINE 10MG TAB TAKE ONE TABLET BY MOUTH ONCE A ACTIVE DAY ON EMPTY STOMACH FOR ALLERGIES 7) NIFEDIPINE (EQV-CC) 60MG SA TAB TAKE ONE TABLET BY held x 1 week MOUTH ONCE A DAY FOR HIGH BLOOD PRESSURE PREFERABLE TO TAKE ON EMPTY STOMACH. SWALLOW WHOLE; DO NOT CRUSH OR CHEW. AVOIDGRAPEFRUIT JUICE. 8) NITROGLYCERIN 0.4MG SL TAB DISSOLVE ONE TABLET UNDER ACTIVE THE TONGUE ONE-TIME FOR CHEST PAIN NEEDED; IF NO IMPROVEMENT AFTER FIRST DOSE CALL 9-1-1. MAY TAKE 2 ADDITIONAL DOSES, 5 MINUTES APART 9) SEVELAMER CARBONATE 800MG TAB TAKE ONE TABLET BY ACTIVE MOUTH THREE TIMES A DAY WITH MEAL(S) TAKE WITH FOOD. 10) TAMSULOSIN HCL 0.4MG CAP TAKE TWO CAPSULES BY MOUTH ACTIVE EVERY EVENING APPROXIMATELY 30 MINUTES AFTER THE SAME MEAL EACH DAY (FOR PROSTATE) Pending Outpatient Medications Status 1) CARVEDILOL 6.25MG TAB TAKE ONE-HALF TABLET BY MOUTH PENDING TWICE A DAY TAKE WITH FOOD. 2) CHOLECALCIF 50MCG (D3-2,000UNIT) TAB TAKE TWO TABLETS PENDING BY MOUTH ONCE A DAY 3) DICLOFENAC NA 1% TOP GEL APPLY 2 GM TO AFFECTED PENDING AREA(S) ONCE A DAY FOR PAIN/INFLAMMATION; NOT MORE THAN 16 GRAMS DAILY TO ANY LOWER EXTREMITY JOINT. NOT MORE THAN 8 GRAMS DAILY TO ANY UPPER EXTREMITY JOINT. MAX 32GM/DAY OVER ALL JOINTS. (MEASURE DOSE WITH RULER ATTACHED INSIDE BOX) 4) FUROSEMIDE 80MG TAB TAKE ONE TABLET BY MOUTH TWICE A PENDING DAY TAKE DAILY EXCEPT DIALYSIS DAYS 5) INSULIN,GLARGINE-YFGN 100UNIT/ML INJ INJECT 40 UNITS PENDING UNDER THE SKIN EVERY MORNING (AT SAME TIME EACH DAY) - (DISCARD ANY UNUSED PORTION 28 DAYS AFTER OPENING) 6) ISOSORBIDE MONONITRATE 30MG SA TAB TAKE ONE TABLET BY PENDING MOUTH ONCE A DAY TAKE ON EMPTY STOMACH. SWALLOW WHOLE. DO NOT CRUSH OR CHEW. 7) LORATADINE 10MG TAB TAKE ONE TABLET BY MOUTH ONCE A PENDING DAY ON EMPTY STOMACH FOR ALLERGIES 8) OLANZAPINE 10MG TAB TAKE ONE-HALF TABLET BY MOUTH AT PENDING BEDTIME NEEDED Active Non-VA Medications Status 1) Non-VA ASPIRIN 81MG EC TAB 81MG BY MOUTH ONCE A DAY ACTIVE 19 Total Medications OBJECTIVE: Vital Signs Temperature: 97.8 F [36.6 C] (04/26/2024 15:00) Respiratory Rate: 18 (04/26/2024 15:00) Pulse Rate: 68 (04/26/2024 15:00) Blood Pressure: 129/65 (04/26/2024 15:00) HT: 71 in [180.3 cm] (12/09/2023 10:42) WT: 231.4 lb [104.96 kg] (04/26/2024 15:00) BMI: 32.3 95% (04/26/2024 15:00) Physical Exam General: NAD noted, A&Ox3, pleasant, appears stated age HEENT: NCAT, TM's clear, nares and oropharynx clear Neck: Supple with normal active ROM, without any lymphadenopathy Heart: RRR, no murmur, clicks, or rub Resp: Lungs CTA bilaterally, respirations even and unlabored Abdomen: Soft, non-distended, non-tender Skin: Warm pink and dry his gluteal fold has some irritation but no skin breakdown Ext: No clubbing, cyanosis, edema or obvious deformity Neuro: Grossly intact Psych: Affect normal, answers questions appropriately throughout visit Assessment/Plan: 1) Acute renal failure stage IV-now on hemodialysis; sevelamer has been ordered but he has not received it and started it as of yet he will take 800 mg [address] Morris. 2) Hypertension-with the hemodialysis he he is coming down off of some of his blood pressure medicines currently only taking isosorbide and metoprolol 3) Cardiomyopathy with combined systolic diastolic congestive heart failure stable improved with dialysis for fluid control. 4) Diabetes type 2- currently taking Lantus insulin 40 units in the a.m. and then NovoLog 15 units before meals and sometimes at bedtime; he does have a continuous glucose monitor will keep a glucose log to bring to his appointment next month Follow-up: As scheduled June 08 for his routine visit and/or as needed. Discussed with patient that in the event of community imaging / testing being ordered in the future, once the imaging / testing has been completed, please notify PACT of completion at outside facility if not called with results within 1 week by a [facility] PACT member; this is due to intermittent lapses in notification of imaging completion within CPR[facility]. All questions answered; agrees to plan of care. Follow up as listed above, annually, and as needed. Keep all appointments. Medications Reconciled. See AVS given to . Time spent 30 minutes. /nichelle/ MD Jewel [facility] Primary Care Signed: 04/27/2024 17:16 TATO SANDOVAL [place] [facility] Apr 26, 2024 02:42 PM PRIMARY CARE NURSI NG NOTE: LOCAL TITLE: PRIMARY CARE NURSING PROGRESS NOTE (TEXT) NURSING P STANDARD TITLE: PRIMARY CARE NURSING NOTE DATE OF NOTE: APR 26, 2024@14:42 ENTRY DATE: APR 26, 2024@14:47:56 AUTHOR: JC CARDENAS COSIGNER: URGENCY: STATUS: COMPLETED Established Patient NISA MARTIN IS A 79 YEAR OLD MALE BEING SEEN IN CLINIC APR 26, 2024. == == REASON FOR VISIT: Hospital follow up. The reports he went to the ER for bleeding but never did say where he was bleeding. Reports that he was started on dialysis due to fluid buildup, causing SOB. The also reports that he was told he had had an AR at some point. The was transferred from [facility] to [facility] in [place]. Are you receiving care any where other than the [place]? No HEALTH AND SURGICAL HISTORY: Had dialysis port placed at [facility] in March 2024 Does patient report using home oxygen? No CURRENT ACTIVE MEDICATIONS FOR REVIEW: Allergies/ADRs (Tool #5) FACILITY ALLERGY/ADR -------- No Remote Allergy/ADR Data available for this patient [facility] ALLOPURINOL [facility] CONTRAST MEDIA [facility] FLOMAX [facility] METFORMIN Med. Reconciliation (Tool #1) INCLUDED IN THIS LIST: Alphabetical list of active outpatient prescriptions dispensed from this [place] (local) and dispensed from another [place] or Do[place] facility (remote) as well as inpatient orders (local pending and active), local clinic medications, locally documented non-VA medications, and local prescriptions that have or been discontinued in the past 90 days. Non-VA Meds Last Documented On: Feb 07, 2020 NOTE The display of VA prescriptions dispensed from another VA or DoD facility (remote) is limited to active outpatient prescription entries matched to National Drug File at the originating site and may not include some items such as investigational drugs, compounds, etc. NOT INCLUDED IN THIS LIST: Medications self-entered by the patient into personal health records (i.e. Glad to Have You) are NOT included in this list. Non-VA medications documented outside this [place], remote inpatient orders (regardless of status) and remote clinic medications are NOT included in this list. The patient and provider must always discuss medications the patient is taking, regardless of where the medication was dispensed or obtained. OUTPT ATORVASTATIN CALCIUM 80MG TAB (Status = Pending) TAKE ONE TABLET BY MOUTH EVERY EVENING TAKE ORALLY WITH EVENING MEAL Login Date: 04/26/24 Qty/Days Supply: 90 Refills Ordered: 3 OUTPT CHOLECALCIF 50MCG (D3-2,000UNIT) TAB (Status = ) TAKE TWO TABLETS BY MOUTH ONCE A DAY FOR VITAMIN D SUPPLEMENTATION Rx# [id number] Last Released: 03/24/24 Qty/Days Supply: 180/ Rx Expiration Date: 04/07/24 Refills Remainin Indication: FOR VITAMIN D SUPPLEMENTATION OUTPT CLOPIDOGREL BISULFATE 75MG TAB (Status = ) TAKE ONE TABLET BY MOUTH ONCE A DAY TO THIN BLOOD Rx# [id number] Last Released: 01/17/24 Qty/Days Supply: 90 Rx Expiration Date: 02/06/24 Refills Remainin OUTPT DICLOFENAC NA 1% TOP GEL (Status = Active) APPLY 2 GM TO AFFECTED AREA(S) ONCE A DAY FOR PAIN/INFLAMMATION; NOT MORE THAN 16 GRAMS DAILY TO ANY LOWER EXTREMITY JOINT. NOT MORE THAN 8 GRAMS DAILY TO ANY UPPER EXTREMITY JOINT. MAX 32GM/DAY OVER ALL JOINTS. (MEASURE DOSE WITH RULER ATTACHED INSIDE BOX) Rx# [id number] Last Released: 09/03/23 Qty/Days Supply: 300/90 Rx Expiration Date: 05/06/24 Refills Remainin OUTPT FINASTERIDE 5MG TAB (Status = Active) TAKE ONE TABLET BY MOUTH ONCE A DAY SWALLOW WHOLE, DO NOT CRUSH, SPLIT, OR CHEW. Rx# [id number] Last Released: 01/17/24 Qty/Days Supply: Rx Expiration Date: 08/20/24 Refills Remainin OUTPT FLUTICASONE PROP 50MCG 120D NASAL INHL (Status = Active) INSTILL 1 SPRAY IN NOSTRIL(S) ONCE A DAY FOR ALLERGIES (MUST BE USED DIRECTED FOR MINIMUM OF 21 DAYS TO PROVIDE ADEQUATE BENEFITS) Rx# [id number] Last Released: 12/18/23 Qty/Days Supply: Rx Expiration Date: 08/20/24 Refills Remainin OUTPT FUROSEMIDE 40MG TAB (Status = Pending) TAKE ONE TABLET BY MOUTH EVERY MORNING TAKE DAILY EXCEPT DIALYSIS DAYS Login Date: 04/26/24 Qty/Days Supply: Refills Ordered: 3 OUTPT INSULIN REG HUMAN 100 UNIT/ML NOVOLIN R (Status = ) INJECT 10 UNITS UNDER THE SKIN EVERY MORNING BEFORE A MEAL FOR DIABETES ADMINISTER 30 MINUTES BEFORE FOOD DIRECTED. DISCARD 30 DAYS AFTER OPENING. PER SLIDING SCALE Rx# [id number] Last Released: 04/20/24 Qty/Days Supply: Rx Expiration Date: 04/25/24 Refills Remainin Indication: FOR DIABETES OUTPT INSULIN,GLARGINE-YFGN 100UNIT/ML INJ (Status = ) INJECT 35 UNITS UNDER THE SKIN EVERY MORNING FOR DIABETES (AT SAME TIME EACH DAY) - (DISCARD ANY UNUSED PORTION 28 DAYS AFTER OPENING) Rx# [id number] Last Released: 01/20/24 Qty/Days Supply: Rx Expiration Date: 04/24/24 Refills Remainin Indication: FOR DIABETES OUTPT ISOSORBIDE MONONITRATE 120MG SA TAB (Status = Active/Suspended) TAKE ONE TABLET BY MOUTH ONCE A DAY TAKE ON EMPTY STOMACH. SWALLOW WHOLE. DO NOT CRUSH OR CHEW. Rx# [id number] Last Released: 01/14/24 Qty/Days Supply: Rx Expiration Date: 09/25/24 Refills Remainin OUTPT LORATADINE 10MG TAB (Status = Discontinued) TAKE ONE TABLET BY MOUTH ONCE A DAY ON EMPTY STOMACH FOR ALLERGIES Rx# [id number] Last Released: 11/27/23 Qty/Days Supply: Rx Expiration Date: 02/06/24 Refills Remainin OUTPT LORATADINE 10MG TAB (Status = Active) TAKE ONE TABLET BY MOUTH ONCE A DAY ON EMPTY STOMACH FOR ALLERGIES Rx# [id number] Last Released: 02/26/24 Qty/Days Supply: 90/ Rx Expiration Date: 05/25/24 Refills Remainin OUTPT MAGNESIUM OXIDE 400MG TAB (Status = ) TAKE ONE TABLET BY MOUTH ONCE A DAY FOR DIETARY MAGNESIUM SUPPLEMENTATION Rx# [id number] Last Released: 11/27/23 Qty/Days Supply: 120/90 Rx Expiration Date: 04/07/24 Refills Remainin Indication: FOR DIETARY MAGNESIUM SUPPLEMENTATION OUTPT METOPROLOL TARTRATE 25MG TAB (Status = Active) TAKE ONE TABLET BY MOUTH TWICE A DAY TAKE WITH OR IMMEDIATELY FOLLOWING FOOD. Rx# [id number] Last Released: 11/20/23 Qty/Days Supply: 180/90 Rx Expiration Date: 11/13/24 Refills Remainin OUTPT NIFEDIPINE (EQV-CC) 60MG SA TAB (Status = Active) TAKE ONE TABLET BY MOUTH ONCE A DAY FOR HIGH BLOOD PRESSURE PREFERABLE TO TAKE ON EMPTY STOMACH. SWALLOW WHOLE; DO NOT CRUSH OR CHEW. AVOIDGRAPEFRUIT JUICE. Rx# [id number] Last Released: 02/27/24 Qty/Days Supply: 90 Rx Expiration Date: 08/20/24 Refills Remainin Indication: FOR HIGH BLOOD PRESSURE OUTPT NITROGLYCERIN 0.4MG SL TAB (Status = Active) DISSOLVE ONE TABLET UNDER THE TONGUE ONE-TIME FOR CHEST PAIN NEEDED; IF NO IMPROVEMENT AFTER FIRST DOSE CALL 02-21-1. MAY TAKE 2 ADDITIONAL DOSES, 5 MINUTES APART Rx# [id number] Last Released: 04/23/24 Qty/Days Supply: 100/90 Rx Expiration Date: 04/20/25 Refills Remainin Indication: FOR CHEST PAIN OUTPT PREDNISONE 10MG TAB (Status = ) TAKE ONE TABLET BY MOUTH ONCE A DAY FOR INFLAMMATION TAKE WITH FOOD OR MILK. Rx# [id number] Last Released: 04/24/23 Qty/Days Supply: Rx Expiration Date: 04/22/24 Refills Remainin Indication: FOR INFLAMMATION OUTPT SEVELAMER CARBONATE 800MG TAB (Status = Active) TAKE ONE TABLET BY MOUTH THREE TIMES A DAY WITH MEAL(S) TAKE WITH FOOD. Rx# [id number] Last Released: Supply: 90 Rx Expiration Date: 04/24/25 Refills Remainin OUTPT SODIUM ZIRCONIUM CYCLOSILICATE 10GM/PKT (Status = Discontinued) MIX AND DRINK 10GM/PKT BY MOUTH EVERY OTHER DAY FOR 90 DAYS FOR HIGH POTASSIUM DISSOLVE IN WATER Rx# [id number] Last Released: 02/16/24 Qty/Days Supply: Rx Expiration Date: 06/30/24 Refills Remainin Indication: FOR HIGH POTASSIUM OUTPT TAMSULOSIN HCL 0.4MG CAP (Status = Discontinued) TAKE TWO CAPSULES BY MOUTH EVERY EVENING APPROXIMATELY 30 MINUTES AFTER THE SAME MEAL EACH DAY (FOR PROSTATE) Rx# [id number] Last Released: 02/09/24 Qty/Days Supply: 180/90 Rx Expiration Date: 04/07/24 Refills Remainin OUTPT TAMSULOSIN HCL 0.4MG CAP (Status = Active) TAKE TWO CAPSULES BY MOUTH EVERY EVENING APPROXIMATELY 30 MINUTES AFTER THE SAME MEAL EACH DAY (FOR PROSTATE) Rx# [id number] Last Released: 04/17/24 Qty/Days Supply: 180/90 Rx Expiration Date: 03/20/25 Refills Remainin OUTPT ZANUBRUTINIB 80MG ORAL CAP (Status = ) TAKE TWO CAPSULES BY MOUTH TWICE A DAY FOR 30 DAYS SWALLOW CAPSULES WHOLE WITH WATER, DO NOT OPEN, BREAK, OR CHEW CAPSULES. Rx# [id number] Last Released: 04/24/23 Qty/Days Supply: 120/30 Rx Expiration Date: 04/22/24 Refills Remainin SUPPLIES OUTPT GLUCOSE SENSOR FREESTYLE DONNELL 2 (Status = Active) USE SENSOR EVERY 14 DAYS FOR BLOOD SUGAR MONITORING FOR CONTINUOUS GLUCOSE MONITORING. CHANGE SENSOR/SITE EVERY 14 DAYS. CONTACT [employer] [facility] AT ([address] [place] [address]) FOR REPLACEMENT OF DAMAGED/MALFUNCTIONING SENSORS Rx# [id number] Last Released: 03/23/24 Qty/Days Supply: 08/20 Rx Expiration Date: 12/24/24 Refills Remainin Indication: FOR BLOOD SUGAR MONITORING PHARMACY TERMS AND POSSIBLE PATIENT ACTIONS INPT = [place] inpatient order IV = [place] intravenous medication OUTPT = [place] outpatient prescription PHARMACY POSSIBLE PATIENT TERMS EXPLANATION ACTIONS -------- ----- ACTIVE A prescription that can be If you have refills, filled at the local [place] pharmacy. you may request a refill of this prescription from your [place] pharmacy. CLINIC A medication you received during If you have questions a visit to a [place] clinic or about this medication emergency department. contact your [place] healthcare team. DISCONTINUED A prescription your provider has Contact your [facility] stopped. It is no longer healthcare team if you available to be sent to you or need more of this picked up at the [place] pharmacy medication. window. A prescription which is too old Contact your VA to fill. This does not refer to healthcare team if you the expiration date of the need more of this medication in the container. medication. NON-VA A medication that came from If this medication someplace other than a VA information is pharmacy. This may be a incorrect or out of prescription from either the VA date, please tell your or non VA providers that was VA healthcare team. filled outside the VA. Or, it may be an fgts-iin-xnsfivz (OTC), herbal, dietary supplements or sample medication. ON HOLD An active prescription that will Contact your VA not be filled until pharmacy pharmacy when you need resolves the issue. more of this medication. PARKED An active prescription that will Contact your VA not be filled until the patient pharmacy when you need requests it. this medication. PENDING This prescription order has been If you have been sent to the pharmacy for review instructed to start and is not ready yet. this medication now, contact your [place] pharmacy. SUSPENDED An active prescription that is Contact your [place] not scheduled to be filled yet. pharmacy if you need You should receive it before this medication now. you run out. Patient reports taking medications as ordered. Pt has new medication list, reports that the waterway traffic checker made a lot of changes. IS PATIENT TAKING ANY OVER THE COUNTER MEDICATIONS, SUCH VITAMINS OR HERBAL SUPPLEMENTS, INCLUDING ANY MEDICATIONS PRESCRIBED BY ANOTHER PHYSICIAN? Yes, List: New meds started in hospital, Dr. Sandoval has a list ALLERGIES/ADVERSE REACTIONS: METFORMIN, CONTRAST MEDIA, ALLOPURINOL, FLOMAX Does patient have any new allergies to report since last visit? NO VITALS: TEMPERATURE: 97.8 F [36.6 C] (12/09/2023 10:42) BP: 117/62 (12/09/2023 10:42) RESP: 18 (12/09/2023 10:42) PULSE: 76 (12/09/2023 10:42) HT: 71 in [180.3 cm] (12/09/2023 10:42) WT: 232 lb [105.23 kg] (12/09/2023 10:42) BMI: 32.4 PAIN ASSESSMENT: (Most Recent Pain Score in Vitals Package: 0 (12/09/2023 10:42) ) The patient indicated that they and their close contacts have not traveled outside of the [place] in the past 21 days. The patient reports the following symptoms: No symptoms present The patient is not immunocompromised. 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 Comment: C diff about 5 years ago The patient does not report having been exposed to measles, chickenpox, or zoster in last 30 days. Patient reports no pain at this visit. Pain Score = 0. STRESS: Thank you for your service. Now let us serve you. At the [facility], we strive to provide you with exceptional health care that improves your health and well-being. Are you feeling sad, empty, or depressed? No Do you need to talk about things in your life that worry you or cause you stress? No Do you need to talk about personal problems, family problems, alcohol use, drug use, or mental or emotional illness? No SUICIDE SCREENING: The patient was asked, Over the past two weeks, how often have you been bothered by thoughts that you would be better off or of hurting yourself in some way? Not At All SPIRITUAL ASSESSMENT: Are there mu-ism practices or spiritual concerns you want the uniform force captain, your physician, and other health care team members to immediately know about? No Patient advised to call the clinic for any concerns, questions, or symptoms. Patient and/or caregiver verbalized understanding of plan of care. Per [facility] Directive 1605.06, wristband documentation: Patient wristband was removed and destroyed by (staff name) Jenna Cardenas RN and placed in the designated [employer] bin. /nichelle/ Jc Cardenas RN,BSN OMAIRA Lea Signed: 04/26/2024 16:32 JC CARDENAS
--- OUTSIDE RECORDS SUMMARY | 2024-07-26 05:30 | XMS_ITS ---
Author Organization [facility] Address [address] [place] [address] Care Team Providers Care Crab Butcher Name Role Phone Corrina AGUERO Primary Care Provider Tito Wan Unavailable [phone] Michael Antonio MD Unavailable Sally Haney [phone] REASON FOR VISIT 4 month labs @ [facility] mail pt a copy Encounters Encounter Location Date Provider Diagnosis [facility] Nephrology [address] [facility] [address] [place] [address] 07/26/2024 Sally Haney Plan Of Treatment No Information Progress Notes * Qiana RENAEe LDOB:1945 (79 yo M)Acc No.[id number]:07/26/2024 Progress Notes Patient: Valente ALATORRE Provider: Nupur Haney CNP :1945 A ge:79 Y S ex:Male Date:07/26/2024 [id number] Pcp:Corrina AGUERO Subjective: * Chief Complaints: * 1 . 4 month labs @ [facility] mail pt a copy. * Medical History: Objective: * Vitals: Assessment: Plan: * Treatment: Forms: * Billing Information: * Visit Code: * Procedure Codes: Care Plan Details* * Electronic signature of Demetrice Haney CNP on 12/18/2024 at 04:19 PM CDT Sign off status: Pending * Provider: Nupur Haney CNP Date: 0 07/26/2024 Generated for Lida harris/Elliot/Jolene on: 0 12/18/2024 04:19 PM SIRIAT
--- OUTSIDE RECORDS SUMMARY | 2024-08-25 06:00 | XMS_ITS | Encounter Summary ---
Author Name [facility] Organization [facility] Address [address] [place] [address] Care Team Providers Care [employer] Division Supervisor Name Role Phone PAULA SANDOVAL Primary Care Provider Unavailabl e Insurance [...] PART A Feb 21, 2009 PART A [id number] [phone] ANGELLA MARTIN PATIENT MEDICARE (WNR) MEDICARE (M) PART B Feb 21, 2009 PART B [id number] [phone] ANGELLA MARTIN PATIENT MEDICARE (WNR) MEDICARE (M) PART A Feb 21, 2009 PART A [id number] ANGELLA MARTIN PATIENT MEDICARE (WNR) MEDICARE (M) PART B Feb 21, 2009 PART B [id number] ANGELLA MARTIN PATIENT MEDICARE (WNR) MEDICARE (M) PART B Feb 21, 2009 PART B [id number] ANGELLA MARTIN PATIENT MEDICARE (WNR) MEDICARE (M) PART A Feb 21, 2009 PART A [id number] ANGELLA MARTIN PATIENT [employer] [place] [employer] PLAN F MEDIC ARE SUPPL EMENT 2013 PLAN F [id number] [phone] ANGELLA MARTIN PATIENT [employer] [place] [employer] MED[employer] SUPPLEMEN [place] MEDIC ARE SUPPL EMENT 2013 PLAN F [id number] [phone] ANGELLA MARTIN PATIENT Selected Encounter This section includes the information on record at ID for the Encounter. Date/Time Encounter Type Encounter Description Reason Provider Source Aug 25, 2024 11:00 AM OFFICE O/P EST MOD 30 MIN PRIMARY CARE/MEDICINE ICD-10-CM 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 diabetes mellitus with unspecified complications BEVERLY SANDOVAL Encounter Template Text not used by [facility] Assessments - Encounter Diagnoses This section includes the primary and secondary diagnoses documented for the Encounter. Date/Time Primary/Secondary Diagnosis Diagnosis Name Provider Source Sep 08, 2024 03:09 PM PRIMARY Type 2 diabetes mellitus with unspecified complications CHRISTI,PAULA [facility] Sep 08, 2024 03:09 PM SECONDARY Actinic keratosis CHRISTI,PAULA [facility] Sep 08, 2024 03:09 PM SECONDARY Allergic rhinitis, unspecified [facility]STI,[facility] Sep 08, 2024 03:09 PM SECONDARY Athscl heart disease of [place] coronary artery w/o ang pctrs CHRISTI,[facility] Sep 08, 2024 03:09 PM SECONDARY Benign prostatic hyperplasia without lower urinry tract symp CHRISTI,PAULA [facility] Sep 08, 2024 03:09 PM SECONDARY Cardiomyopathy, unspecified CHRISTI,PAULA [facility] Sep 08, 2024 03:09 PM SECONDARY Cerebral infarction, unspecified CHRISTI,PAULA [facility] Sep 08, 2024 03:09 PM SECONDARY Chronic kidney disease, stage 4 (severe) CHRISTI,PAULA [facility] Sep 08, 2024 03:09 PM SECONDARY 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 CHRISTI,PAULA [facility] Sep 08, 2024 03:09 PM SECONDARY Contact with and exposure to other hazardous substances [facility] Sep 08, 2024 03:09 PM SECONDARY Essential (primary) hypertension [facility] Sep 08, 2024 03:09 PM SECONDARY Gastro-esophageal reflux disease without esophagitis [facility] Sep 08, 2024 03:09 PM SECONDARY Heart failure, unspecified [facility] Sep 08, 2024 03:09 PM SECONDARY Hyperlipidemia, unspecified [facility] Sep 08, 2024 03:09 PM SECONDARY Occlusion and stenosis of bilateral carotid arteries [facility] Sep 08, 2024 03:09 PM SECONDARY Oth transient cerebral ischemic attacks and related synd [facility] Sep 08, 2024 03:09 PM SECONDARY Other specified disorders of kidney and ureter PAULA SANDOVAL [facility] Sep 08, 2024 03:09 PM SECONDARY Pain in left elbow [facility] Sep 08, 2024 03:09 PM SECONDARY Presence of cardiac pacemaker [facility] Sep 08, 2024 03:09 PM SECONDARY Sensorineural hearing loss, bilateral [facility] Sep 08, 2024 03:09 PM SECONDARY Tinnitus, bilateral [facility] Sep 08, 2024 03:09 PM SECONDARY Type 2 diabetes mellitus with diabetic nephropathy CHRISTIPAULA [facility] Sep 08, 2024 03:09 PM SECONDARY Type 2 diabetes mellitus with diabetic polyneuropathy [facility] Sep 08, 2024 03:09 PM SECONDARY Unspecified sensorineural hearing loss CHRISTIPAULA ARTHUR [facility] Plan of Treatment: Future Appointments (+ 6 months) and Future Tests (+/- 45 days) The Plan of Treatment section includes future care activities for the patient from all ID treatmentfacilities. This section includes future appointments and future orders which are active, pending or scheduled. Future Appointments This section includes appointments that were scheduled to occur 6 months from the date of the Encounter, up to a maximum of 20 appointments. The data comes from all ID treatment facilities. Appointment Date/Time Appointment Type Appointme nt Facility Name Sep 17, 2024 11:00 AM AMBULATORY - MEDICINE [facility] Oct 06, 2024 08:00 AM [facility] - NONE [facility] Oct 06, 2024 10:00 AM [facility] October 25, 2024 11:15 AM [facility] October 27, 2024 10:30 AM AMBULATORY - MEDICINE [facility] October 27, 2024 10:31 AM [facility] November 12, 2024 11:00 AM [facility]IC[facility] Dec 01, 2024 09:40 AM AMBULATORY - MEDICINE [facility] Dec 13, 2024 10:00 AM AMBULATORY - MEDICINE [facility] Dec 22, 2024 10:30 AM AMBULATORY - MEDICINE [facility] Active, Pending, and Scheduled Orders This section includes a listing of several types of active, pending, and scheduled orders, including clinic medications orders, diagnostic test orders, procedure orders and consult orders; where the start date of the order is 45 days before the date of the Encounter or 45 days after the date of theEncounter. The data comes from all ID treatment facilities. Test Date/Time Test Type Test Details Facility Name Sep 15, 2024 01:23 PM Consult Order [facility]-HEMODIALYSIS [id number] Cons Client Solutions Director's Choice [facility] Sep 15, 2024 01:23 PM Consult Order [facility]-NEPHROLOGY DIALYSIS OVERSIGHT [id number] Cons Client Solutions Director's Choice [facility] Sep 29, 2024 07:55 AM Consult Order [id number] Cons Client Solutions Director's Choice [facility] Lab Results: +/- 30 days of the encounter This section includes the Chemistry and Hematology Lab Results on record with ID for the patient. Radiology Reports and Pathology Reports are provided separately, in subsequent sections. Lab Results This section contains the Chemistry/Hematology Results that were resulted 30 days before or 30 daysafter the date of the Encounter. Date/Time Source Result Type Result - Unit Interpretation Reference Range Specimen Type Comment Sep 13, 2024 08:32 AM [facility] FERRITIN SERUM Specimen Type: SERUM No comment entered. Ordering Provider: RADHA PINK Report Released Date/Time: Jun 07, 2024 01:24 PM Reporting Lab: [place] [facility] [address] [place] [address] Performing Lab: [place] [facility] [address] [place] [address] FERRITIN 228 ng/mL 22-275 Sep 13, 2024 08:32 AM [facility] FOLATE (PB) SERUM Specimen Typ e: SERUM No comment entered. Ordering Provider: RADHA PINK Report Released Date/Time: Jun 07, 2024 01:24 PM Reporting Lab: [place] [facility] [address] [place] [address] Performing Lab: [place] [facility] [address] [place] [address] FOLATE (PB) >20.0 ng/mL H 7-20 Sep 13, 2024 08:32 AM [facility] B12 SERUM Specimen Type: SERUM No comment entered. Ordering Provider: RADHA PINK Report Released Date/Time: Jun 07, 2024 01:24 PM Reporting Lab: [place] [facility] [address] [place] [address] Performing Lab: [place] [facility] [address] [place] [address] B12 394 pg/mL 213-816 Sep 13, 2024 08:32 AM [facility] IRON/TIBC PROFILE PLASMA Specimen Type: PLASM A No comment entered. Ordering Provider: RADHA PINK Report Released Date/Time: Jun 07, 2024 01:24 PM Reporting Lab: [place] [facility] [address] [place] [address] Performing Lab: [place] [facility] [address] [place] [address] TIBC 218 ug/dL TRANSFERRIN 174 mg/dL 163-344 IRON SATURATION 33 20-50 IRON 71 ug/dL 65-175 Sep 13, 2024 08:32 AM [facility] DIRECT LDL (MA-PB) PLASMA Specimen Type: PLASM A No comment entered. Ordering Provider: RADHA PINK Report Released Date/Time: Jun 07, 2024 01:24 PM Reporting Lab: [place] [facility] [address] [place] [address] Performing Lab: [place] [facility] [address] [place] [address] DIRECT LDL 40.9 mg/dL 0-99.9 Sep 13, 2024 08:[address] [facility] CHOLESTEROL PANEL (PB) PLASMA Specimen Type: P LASMA No comment entered. Ordering Provider: RADHA PINK Report Released Date/Time: Jun 07, 2024 01:24 PM Reporting Lab: [place] [facility] [address] [place] [address] Performing Lab: [place] [facility] [address] [place] [address] CHOLESTEROL 102 mg/dL 0-200 TRIGLYCERIDE 90 mg/dL 0-150 CALCULATED LDL 41.9 mg/dL HDL(New) 42.1 mg/dL H >40 HDL % OF TOTAL CHOLESTEROL (PB) 41.3 >25 Sep 13, 2024 08:32 AM [facility] VITAMIN D, 25-HYDROXY SERUM Specimen Type: SE RUM No comment entered. Ordering Provider: RADHA PINK Report Released Date/Time: Jun 07, 2024 01:24 PM Reporting Lab: [place] [facility] [address] [place] [address] Performing Lab: [place] [facility] [address] [place] [address] VITAMIN D, 25-HYDROXY 53.9 ng/mL 30-96 Sep 13, 2024 08:32 AM [facility] FOLATE (PB) SERUM Specimen Typ e: SERUM No comment entered. Ordering Provider: RADHA PINK Report Released Date/Time: Jun 07, 2024 01:24 PM Reporting Lab: [place] [facility] [address] [place] [address] Performing Lab: [place] [facility] [address] [place] [address] FOLATE (PB) >20.0 ng/mL H 7-20 Sep 13, 2024 08:32 AM [facility] B12 SERUM Specimen Type: SERUM No comment entered. Ordering Provider: RADHA PINK Report Released Date/Time: Jun 07, 2024 01:24 PM Reporting Lab: [place] [facility] [address] [place] [address] Performing Lab: [place] [facility] [address] [place] [address] B12 368 pg/mL 213-816 Sep 13, 2024 08:32 AM [facility] COMPREHENSIVE METABOLIC PANEL PLASMA Specimen Type: PLASMA No comment entered. Ordering Provider: RADHA PINK Report Released Date/Time: Jun 07, 2024 01:24 PM Reporting Lab: [place] [facility] [address] [place] [address] Performing Lab: [place] [facility] [address] [place] [address] CREATININE 3.74 mg/dL H 0.7-1.3 UREA NITROGEN [...] (CKD-EPI 2020) Sep 13, 2024 08:32 AM [facility] HGA1C BLOOD Specimen Type: BLOOD No comment entered. Ordering Provider: RADHA PINK Report Released Date/Time: Jun 07, 2024 01:24 PM Reporting Lab: [place] [facility] [address] [place] [address] Performing Lab: [place] [facility] [address] [place] [address] HGA1C 7.6 H 4.0-6.0 Sep 13, 2024 08:32 AM [facility] CBC BLOOD Specimen Type: BLOOD Comment: SUBMITTED FOR PATH REVIEW Ordering Provider: RADHA PINK Report Released Date/Time: Jun 07, 2024 01:24 PM Reporting Lab: [place] [facility] [address] [place] [address] Performing Lab: [place] [facility] [address] [place] [address] WBC 69.9 10*3/uL H 3.6-11.2 RBC 3.63 [...] 10*3/uL H 0.77-4.50 NEUT#-MDIFF 2.10 10*3/uL 2.10-8.00 Vital Signs: All taken on the encounter date This section contains inpatient and outpatient Vital Signs collected on the date of the Encounter. Date/Time Temperature Pulse Blood Pressure Respiratory Rate SP02 Pain Height Weight Body Mass Index Source Aug 25, 2024 11:23 AM 84 119/66 18 93 71.0 226.9 32 [place] [facility] Social History: Smoking Status (Most current) and Tobacco Use (All prior to encounter date) This section includes the most current, and the historical, smoking and tobacco- related health factors from the ID facility where the Encounter took place. Current Smoking Status This section includes the most current smoking, or tobacco-related health factor, from the ID facility where the Encounter took place. Date/Time Current Smoking Status Comment Facil ity Aug 25, 2024 11:00 AM VA-TOBACCO USE FORMER CIGARETTES [place] [facility] Tobacco Use History This section includes a history of the smoking, or tobacco-related health factors, that were collected on or before the date of the Encounter. The data comes from the ID facility where the Encounter took place. Date/Time Smoking Status/Tobacco Use Comment F acility Aug 25, 2024 11:00 AM VA-TOBACCO USE FORMER CIGARETTES [place] [facility] Jun 13, 2023 11:00 AM VA-TOBACCO FORMER USER [place] [facility] Jun 13, 2023 11:00 AM VA-TOBACCO QUIT 15 YRS OR MORE [place] [facility] May 22, 2022 10:30 AM VA-TOBACCO FORMER USER [place] [facility] May 22, 2022 10:30 AM VA-TOBACCO QUIT 15 YRS OR MORE [place] [facility] May 24, 2021 09:00 AM VA-TOBACCO NEVER USED [place] [facility] Feb 07, 2020 10:30 AM VA-TOBACCO FORMER USER [place] [facility] Feb 07, 2020 10:30 AM VA-TOBACCO QUIT 15 YRS OR MORE [facility] Aug 04, 2018 03:05 PM VA-TOBACCO FORMER USER [place] [facility] Aug 04, 2018 03:05 PM VA-TOBACCO QUIT 15 YRS OR MORE [facility] Jun 30, 2017 02:33 PM QUIT TOBACCO >7 YEARS AGO [place] [facility] Sep 17, 2012 02:58 PM QUIT TOBACCO >7 YEARS AGO [place] [facility] Nov 30, 2004 09:55 AM CURRENT NON-TOBACCO USER-HX OF [facility] Jul 03, 2004 01:41 PM CURRENT NON-TOBACCO USER-HX OF [facility] Sep 01, 2003 02:24 PM CURRENT NON-TOBACCO USER-HX OF [facility] Sep 16, 2002 10:15 AM CURRENT NON-TOBACCO USER-HX OF [facility] Encounter Notes: All associated encounter notes This section contains the clinical notes associated to the Encounter. Date/Time Encounter Note(s) Provider Source Aug 25, 2024 11:58 AM PRIMARY CARE PROGR ESS NOTE: LOCAL TITLE: PRIMARY CARE CLINIC PROGRESS NOTE PB STANDARD TITLE: PRIMARY CARE PROGRESS NOTE DATE OF NOTE: AUG 25, 2024@11:58 ENTRY DATE: AUG 25, 2024@11:58:43 AUTHOR: PAULA SANDOVAL EXP COSIGNER: URGENCY: STATUS: COMPLETED SUBJECTIVE: NISA MARTIN is a 79 years old MALE. HPI: Presents to the clinic today for a periodic health maintenance visit. Last seen April 26, 2024. He reports doing well overall he does have a spot on his right cheek he wanted checked up but is just a little rough and not clearing up. He currently is taking Lantus 45 units in the morning with a sliding scale NovoLog low-dose he has gotten frequent low readings in the middle of the night usually around 2 AM. He does tend to do a late evening snack of protein such as cottage cheese etc. He reports he is sleeping well not taking the Zyprexa via Non-VA Primary Care Provider Dr. Orozco Specialty [...] pyh ALCOHOL: rarely DRUGS: no HX: BRANCH: [place] 1963-. 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 WHILE ON ACTIVE DUTY: SURGICAL HX: Coronary stents x 2 Appendectomy CABG quad Problem List 1) Type 2 diabetes mellitus (SNOMED CT 84397838) 2) HTN - Hypertension (SNOMED CT 50907189) 3) Coronary artery disease (SNOMED CT 86971499) 4) Diabetic nephropathy 5) HLD - Hyperlipidemia (SNOMED CT 12671764) 6) CLL - Chronic lymphocytic leukemia (SNOMED CT 43041167) 7) Cardiac pacemaker in situ 8) GERD [...] ears 20) Bilateral tinnitus 21) Renal mass 22) Chronic congestive heart failure 23) Cardiomyopathy Active Outpatient Medications (including Supplies): Active Outpatient Medications Status 1) ATORVASTATIN CALCIUM 80MG TAB TAKE ONE TABLET BY MOUTH EVERY ACTIVE EVENING TAKE ORALLY WITH EVENING MEAL Indication: FOR HIGH CHOLESTEROL 2) CARVEDILOL 6.25MG TAB TAKE ONE-HALF TABLET BY MOUTH TWICE A ACTIVE DAY TAKE WITH FOOD. Indication: FOR HEART FAILURE 3) CHOLECALCIF 50MCG (D3-2,000UNIT) TAB TAKE TWO TABLETS BY ACTIVE MOUTH ONCE A DAY Indication: FOR VITAMIN D SUPPLEMENTATION 4) DICLOFENAC NA 1% TOP GEL APPLY 2 GM TO AFFECTED AREA(S) ONCE ACTIVE A DAY FOR PAIN/INFLAMMATION; NOT MORE THAN 16 GRAMS DAILY TO ANY LOWER EXTREMITY JOINT. NOT MORE THAN 8 GRAMS DAILY TO ANY UPPER EXTREMITY JOINT. MAX 32GM/DAY OVER ALL JOINTS. (MEASURE DOSE WITH RULER ATTACHED INSIDE BOX) 5) FOLIC ACID 1MG TAB TAKE ONE TABLET BY MOUTH ONCE A DAY ACTIVE Indication: FOR FOLIC ACID SUPPLEMENTATION 6) FUROSEMIDE 80MG TAB TAKE ONE TABLET BY MOUTH TWICE A DAY NOT TAKING TAKE DAILY EXCEPT DIALYSIS DAYS ONLY ON NONDIALYSIS DAYS (FRIDAY, FRIDAY, FRIDAY, FRIDAY Indication: FOR FLUID RETENTION (EDEMA) 7) GLUCOSE SENSOR FREESTYLE KIERAN 2 USE SENSOR EVERY 14 DAYS ACTIVE FOR CONTINUOUS GLUCOSE MONITORING. CHANGE SENSOR/SITE EVERY 14 DAYS. CONTACT [employer] CUSTOMER SERVICE AT ([id number]) FOR REPLACEMENT OF DAMAGED/MALFUNCTIONING SENSORS Indication: FOR BLOOD SUGAR MONITORING 8) INSULIN SYRINGE 0.5ML 31G 8MM USE SYRINGE UNDER THE SKIN ACTIVE FOUR TIMES A DAY TO USE WITH INSULIN Indication: FOR DIABETES 9) INSULIN,GLARGINE,HUMAN 100 UNIT/ML INJ INJECT 40 UNITS UNDER ACTIVE THE SKIN EVERY MORNING (AT SAME TIME EACH DAY) - (DISCARD ANY UNUSED PORTION 28 DAYS AFTER OPENING) Indication: FOR DIABETES 10) ISOSORBIDE MONONITRATE 30MG SA TAB TAKE ONE TABLET BY MOUTH ACTIVE ONCE A DAY TAKE ON EMPTY STOMACH. SWALLOW WHOLE. DO NOT CRUSH OR CHEW. Indication: FOR CHEST PAIN 11) NITROGLYCERIN 0.4MG SL TAB DISSOLVE ONE TABLET UNDER THE ACTIVE TONGUE ONE-TIME NEEDED; IF NO IMPROVEMENT AFTER FIRST DOSE CALL 02-21-. MAY TAKE 2 ADDITIONAL DOSES, 5 MINUTES APART Indication: FOR CHEST PAIN 12) OLANZAPINE 10MG TAB TAKE ONE-HALF TABLET BY MOUTH AT NOT TAKING BEDTIME NEEDED Indication: FOR ANXIETY 13) SEVELAMER CARBONATE 800MG TAB TAKE ONE TABLET BY MOUTH THREE ACTIVE TIMES A DAY WITH MEAL(S) TAKE WITH FOOD. 14) TAMSULOSIN HCL 0.4MG CAP TAKE TWO CAPSULES BY MOUTH EVERY ACTIVE EVENING APPROXIMATELY 30 MINUTES AFTER THE SAME MEAL EACH DAY (FOR PROSTATE) Active Non-VA Medications Status 1) Non-VA ASPIRIN 81MG EC TAB 81MG BY MOUTH ONCE A DAY ACTIVE Indication: FOR CARDIOVASCULAR DISEASE 15 Total Medications Allergies: METFORMIN, CONTRAST MEDIA, ALLOPURINOL, FLOMAX Review of Systems: as per HPI and Systemic: Denies fatigue, fever, chills, or weight loss CV: Denies chest pain, palpitations Pulmonary: Denies hemoptysis, Shortness of breath, dyspnea on exertion GI: Denies constipation, bloody stools, diarrhea, indigestion, or n/v Ext: Denies any swelling Neuro: Denies slurred speech or dizziness Skin: Denies abnormal lesions; denies any new rashes PSYCH: Denies SI/HI; denies nightmares OBJECTIVE: Vital Signs Temperature: 97.8 F [36.6 C] (04/26/2024 15:00) Respiratory Rate: 18 (08/25/2024 11:23) Pulse Rate: 84 (08/25/2024 11:23) Blood Pressure: 119/66 (08/25/2024 11:23) HT: 71.0 in [180.3 cm] (08/25/2024 11:23) WT: 226.9 lb [102.92 kg] (08/25/2024 11:) BMI: 31.7 93% (08/25/2024 11:) Physical Exam General: NAD noted, A&Ox3, pleasant, appears stated age HEENT: NCAT, TM's clear, nares and oropharynx clear Neck: Supple with normal active ROM, without any lymphadenopathy Heart: RRR, no murmur, clicks, or rub Resp: Lungs CTA bilaterally, respirations even and unlabored Ext: No clubbing, cyanosis, edema or obvious deformity Skin: Warm, pink, and dry, no rashes he does have an AK lesion on his right cheek as well as left helix of the ear Neuro: Grossly intact Psych: Affect normal, answers questions appropriately throughout visit A/P: ASSESSMENT and PLAN Health Maintenance: Labs reviewed with patient and printout given to patient. Discussed preventative health to include diet and exercise as well as immunizations. Recurrent TIA's/CVA/Carotid artery narrowing- US results at [facility] showed bilateral carotid 50-60% plaquing; he is on 81mg aspirin q day and Plavix; no recent issues Type 2 diabetes mellitus- much improved; he has the [employer] CGM which is helpful. Will dc the evening Lantus and only take 45units in the am along with Novolin sliding scale; before meals BS < 90 3 units 90-149 6 units 150-199 9 units 200-149 12 units 250-299 15 units 300 18 units Will decrease the sliding scale by 3 units with supper Diabetic polyneuropathy- improved with PT, uses a cane for stability Diabetic nephrology/CRD stage 4- followed by nephrology; on hemodialysis HTN - controlled with isosorbide and coreg Coronary artery disease/ Cardiac pacemaker in situ- with stable angina on isosorbide, followed by cardiology Hyperlipidemia- controlled on atorvastatin CLL - followed by Dr. Johnathan GERD - doing well no meds Allergic rhinitis-controlled on Flonase and Claritin BPH- controlled on Flomax and finasteride PAMUNKEY/tinnitus- stable Pain of left wrist/OA knees- stable Exposure to potentially hazardous substance Chronic congestive heart failure with Cardiomyopathy-stable Secondary hyperparathyroidism- renal Actinic keratoses to right cheek left ear helix- discussed with patient cryotherapy which he wanted to proceed with today Informed consent obtained for cryotherapy and time out performed. Cryotherapy with verruca-freeze via [employer] to lesion on right cheek and left ear helix. Patient tolerated well. Aftercare instructions handout given. Stable. Discussed medications with patient; med rec completed. Continue current regimen as prescribed by PCP and specialists. RTC as needed if developing any new or worsening symptoms. Please notify PACT with medication changes or for orders coordination as needed if seen by a specialist in the future. Will f/u with patient once updated labs / imaging / testing received; otherwise f/u as listed below. Follow-up: 6 months with fasting labs prior to appointment and/or as needed. Discussed with patient that [...] appointments. Medications Reconciled. See AVS given to [place]. Time spent 30 minutes. /nichelle/ Paula Sandoval MD [place] [facility] Primary Care Signed: 08/25/2024 16:37 PAULA SANDOVAL [facility] Aug 25, 2024 11:17 AM PRIMARY CARE NURSI NG NOTE: LOCAL TITLE: PRIMARY CARE NURSING PROGRESS NOTE (TEXT) NURSING P STANDARD TITLE: PRIMARY CARE NURSING NOTE DATE OF NOTE: AUG 25, 2024@11:17 ENTRY DATE: AUG 25, 2024@11:17:13 AUTHOR: CLARISA DANIELS EXP COSIGNER: URGENCY: STATUS: COMPLETED PRIMARY CARE NURSING PROGRESS NOTE (TEXT) NURSING PB Has ADDENDA Established Patient NISA MARTIN IS A 79 YEAR OLD MALE BEING SEEN IN CLINIC AUG 25, 2024. REASON FOR VISIT: [place] here today for 6 month check up for t2dm. Are you [facility]? No HEALTH AND SURGICAL HISTORY: Does patient report using home oxygen? No CURRENT ACTIVE MEDICATIONS FOR REVIEW: Allergies/ADRs (Tool #5) FACILITY ALLERGY/ADR -------- No Remote Allergy/ADR Data available for this patient [facility] ALLOPURINOL [facility] CONTRAST MEDIA [facility] FLOMAX [facility] METFORMIN Med. Reconciliation (Tool #1) INCLUDED IN THIS LIST: Alphabetical list of active outpatient prescriptions dispensed from this ID (local) and dispensed from another ID or [facility] facility (remote) as well as inpatient orders (local pending and active), local clinic medications, locally documented non-VA medications, and local prescriptions that have or been discontinued in the past 90 days. Non-VA Meds Last Documented On: Apr 26, 2024 NOTE The display of VA prescriptions dispensed from another ID or [facility]D facility (remote) is limited to active outpatient prescription entries matched to National Drug File at the originating site and may not include some items such as investigational drugs, compounds, etc. NOT INCLUDED IN THIS LIST: Medications self-entered by the patient into personal health records (i.e. [email or web address]) are NOT included in this list. Non-VA medications documented outside this ID, remote inpatient orders (regardless of status) and remote clinic medications are NOT included in this list. The patient and provider must always discuss medications the patient is taking, regardless of where the medication was dispensed or obtained. Non-VA ASPIRIN 81MG EC TAB TAKE ONE TABLET BY MOUTH ONCE A DAY VA RX: Patient wants to buy from Non-VA pharmacy Indication: FOR CARDIOVASCULAR DISEASE OUTPT ATORVASTATIN CALCIUM 80MG TAB (Status = Active) TAKE ONE TABLET BY MOUTH EVERY EVENING FOR HIGH CHOLESTEROL TAKE ORALLY WITH EVENING MEAL Rx# [id number] Last Released: 07/05/24 Qty/Days Supply: Rx Expiration Date: 04/27/25 Refills Remainin Indication: FOR HIGH CHOLESTEROL OUTPT CARVEDILOL 6.25MG TAB (Status = Active) TAKE ONE-HALF TABLET BY MOUTH TWICE A DAY FOR HEART FAILURE TAKE WITH FOOD. Rx# [id number] Last Released: 07/21/24 Qty/Days Supply: Rx Expiration Date: 04/27/25 Refills Remainin Indication: FOR HEART FAILURE OUTPT CHOLECALCIF 50MCG (D3-2,000UNIT) TAB (Status = Active) TAKE TWO TABLETS BY MOUTH ONCE A DAY FOR VITAMIN D SUPPLEMENTATION Rx# [id number] Last Released: 05/29/24 Qty/Days Supply: 180 Rx Expiration Date: 04/27/25 Refills Remainin Indication: FOR VITAMIN D SUPPLEMENTATION OUTPT DICLOFENAC NA 1% TOP GEL (Status = Active) APPLY 2 GM TO AFFECTED AREA(S) ONCE A DAY FOR PAIN/INFLAMMATION; NOT MORE THAN 16 GRAMS DAILY TO ANY LOWER EXTREMITY JOINT. NOT MORE THAN 8 GRAMS DAILY TO ANY UPPER EXTREMITY JOINT. MAX 32GM/DAY OVER ALL JOINTS. (MEASURE DOSE WITH RULER ATTACHED INSIDE BOX) Rx# [id number] Last Released: 04/28/24 Qty/Days Supply: 300/ Rx Expiration Date: 04/27/25 Refills Remainin OUTPT FINASTERIDE 5MG TAB (Status = ) TAKE ONE TABLET BY MOUTH ONCE A DAY SWALLOW WHOLE, DO NOT CRUSH, SPLIT, OR CHEW. Rx# [id number] Last Released: 05/14/24 Qty/Days Supply: 90 Rx Expiration Date: 08/20/24 Refills Remainin OUTPT FLUTICASONE PROP 50MCG 120D NASAL INHL (Status = ) INSTILL 1 SPRAY IN NOSTRIL(S) ONCE A DAY FOR ALLERGIES (MUST BE USED DIRECTED FOR MINIMUM OF 21 DAYS TO PROVIDE ADEQUATE BENEFITS) Rx# [id number] Last Released: 12/18/23 Qty/Days Supply: Rx Expiration Date: 08/20/24 Refills Remainin OUTPT FOLIC ACID 1MG TAB (Status = Active) TAKE ONE TABLET BY MOUTH ONCE A DAY FOR FOLIC ACID SUPPLEMENTATION Rx# [id number] Last Released: 06/09/24 Qty/Days Supply: Rx Expiration Date: 06/08/25 Refills Remainin Indication: FOR FOLIC ACID SUPPLEMENTATION OUTPT FUROSEMIDE 80MG TAB (Status = Active) TAKE ONE TABLET BY MOUTH TWICE A DAY FOR FLUID RETENTION (EDEMA) TAKE DAILY EXCEPT DIALYSIS DAYS ONLY ON NONDIALYSIS DAYS (FRIDAY, FRIDAY, FRIDAY, FRIDAY Rx# [id number] Last Released: 04/30/24 Qty/Days Supply: Rx Expiration Date: 04/27/25 Refills Remainin Indication: FOR FLUID RETENTION (EDEMA) OUTPT INSULIN,GLARGINE,HUMAN 100 UNIT/ML INJ (Status = Active) INJECT 40 UNITS UNDER THE SKIN EVERY MORNING FOR DIABETES (AT SAME TIME EACH DAY) - (DISCARD ANY UNUSED PORTION 28 DAYS AFTER OPENING) Rx# [id number] Last Released: 04/29/24 Qty/Days Supply: Rx Expiration Date: 04/27/25 Refills Remainin Indication: FOR DIABETES OUTPT ISOSORBIDE MONONITRATE 30MG SA TAB (Status = Active) TAKE ONE TABLET BY MOUTH ONCE A DAY FOR CHEST PAIN TAKE ON EMPTY STOMACH. SWALLOW WHOLE. DO NOT CRUSH OR CHEW. Rx# [id number] Last Released: 07/07/24 Qty/Days Supply: Rx Expiration Date: 04/27/25 Refills Remainin Indication: FOR CHEST PAIN OUTPT LORATADINE 10MG TAB (Status = ) TAKE ONE TABLET BY MOUTH ONCE A DAY ON EMPTY STOMACH FOR ALLERGIES Rx# [id number] Last Released: 05/04/24 Qty/Days Supply: Rx Expiration Date: 07/25/24 Refills Remainin OUTPT NIFEDIPINE (EQV-CC) 60MG SA TAB (Status = ) TAKE ONE TABLET BY MOUTH ONCE A DAY FOR HIGH BLOOD PRESSURE PREFERABLE TO TAKE ON EMPTY STOMACH. SWALLOW WHOLE; DO NOT CRUSH OR CHEW. AVOIDGRAPEFRUIT JUICE. Rx# [id number] Last Released: 02/27/24 Qty/Days Supply: Rx Expiration Date: 08/20/24 Refills Remainin Indication: FOR HIGH BLOOD PRESSURE OUTPT NITROGLYCERIN 0.4MG SL TAB (Status = Active) DISSOLVE ONE TABLET UNDER THE TONGUE ONE-TIME FOR CHEST PAIN NEEDED; IF NO IMPROVEMENT AFTER FIRST DOSE CALL . MAY TAKE 2 ADDITIONAL DOSES, 5 MINUTES APART Rx# [id number] Last Released: 04/23/24 Qty/Days Supply: 100/90 Rx Expiration Date: 04/20/25 Refills Remainin Indication: FOR CHEST PAIN OUTPT OLANZAPINE 10MG TAB (Status = Active) TAKE ONE-HALF TABLET BY MOUTH AT BEDTIME NEEDED FOR ANXIETY Rx# [id number] Last Released: 04/30/24 Qty/Days Supply: 90 Rx Expiration Date: 04/27/25 Refills Remainin Indication: FOR ANXIETY OUTPT SEVELAMER CARBONATE 800MG TAB (Status = Active) TAKE ONE TABLET BY MOUTH THREE TIMES A DAY WITH MEAL(S) TAKE WITH FOOD. Rx# [id number] Last Released: 05/29/24 Qty/Days Supply: 90 Rx Expiration Date: 04/24/25 Refills Remainin OUTPT TAMSULOSIN HCL 0.4MG CAP (Status = Active) TAKE TWO CAPSULES BY MOUTH EVERY EVENING APPROXIMATELY 30 MINUTES AFTER THE SAME MEAL EACH DAY (FOR PROSTATE) Rx# [id number] Last Released: 04/17/24 Qty/Days Supply: 180/ Rx Expiration Date: 03/20/25 Refills Remainin SUPPLIES OUTPT GLUCOSE SENSOR FREESTYLE [facility] 2 (Status = Active) USE SENSOR EVERY 14 DAYS FOR BLOOD SUGAR MONITORING FOR CONTINUOUS GLUCOSE MONITORING. CHANGE SENSOR/SITE EVERY 14 DAYS. CONTACT [facility] ([address] [place] [address]) FOR REPLACEMENT OF DAMAGED/MALFUNCTIONING SENSORS Rx# [id number] Last Released: 06/29/24 Qty/Days Supply: 08/20 Rx Expiration Date: 12/24/24 Refills Remainin Indication: FOR BLOOD SUGAR MONITORING OUTPT INSULIN SYRINGE 0.5ML 31G 8MM (Status = Active) USE SYRINGE UNDER THE SKIN FOUR TIMES A DAY FOR DIABETES TO USE WITH INSULIN Rx# [id number] Last Released: 05/28/24 Qty/Days Supply: 400/90 Rx Expiration Date: 05/28/25 Refills Remainin Indication: FOR DIABETES PHARMACY TERMS AND POSSIBLE PATIENT ACTIONS INPT = ID inpatient order IV = ID intravenous medication OUTPT = ID outpatient prescription PHARMACY POSSIBLE PATIENT TERMS EXPLANATION ACTIONS -------- --- ACTIVE A prescription that can be If you have refills, filled at the local ID pharmacy. you may request a refill of this prescription from your ID pharmacy. CLINIC A medication you received during If you have questions a visit to a ID clinic or about this medication emergency department. contact your ID healthcare team. DISCONTINUED A prescription your provider has Contact your VA stopped. It is no longer healthcare team if you available to be sent to you or need more of this picked up at the ID pharmacy medication. window. A prescription which is [...] the VA. Or, it may be an ebre-hks-xksochn (OTC), herbal, dietary supplements or sample medication. [...] ready yet. this medication now, contact your VA pharmacy. SUSPENDED An active prescription that is Contact your ID not scheduled to be filled yet. pharmacy if you need You should receive it before this medication now. you run out. ======== Medication list reviewed with Patient Patient/Caregiver reports taking medications as ordered. IS PATIENT TAKING ANY OVER THE COUNTER MEDICATIONS, SUCH VITAMINS OR HERBAL SUPPLEMENTS, INCLUDING ANY MEDICATIONS PRESCRIBED BY ANOTHER PHYSICIAN? No Does patient have any new allergies to report since last visit? NO VITALS: TEMPERATURE: 97.8 F [36.6 C] (04/26/2024 15:00) BP: 129/65 (04/26/2024 15:00) RESP: 18 (04/26/2024 15:00) PULSE: 68 (04/26/2024 15:00) HT: 71 in [180.3 cm] (12/09/2023 10:42) WT: 231.4 lb [104.96 kg] (04/26/2024 15:00) BMI: 32.3 PAIN ASSESSMENT: (Most Recent Pain Score in Vitals Package: 0 (04/26/2024 15:00) ) The patient indicated that they and their close contacts have not traveled outside of the [place] in the past 21 days. The patient reports the following symptoms: No symptoms present The patient is not immunocompromised. The patient does not report having a history of Multi Drug Resistant Organism (MDRO) within the last five years. The patient does not report having been exposed to measles, chickenpox, or zoster in last 30 days. Patient reports no pain at this visit. Pain Score = 0. STRESS: Thank you for your service. Now let us serve you. At [facility], we strive to provide you with [...] Not At All SPIRITUAL ASSESSMENT: Are there quaker practices or spiritual concerns you want the hadoop admin, your physician, and other health care team members to immediately know about? No Patient advised to call the clinic for any concerns, questions, or symptoms. Patient and/or caregiver verbalized understanding of plan of care. [facility] MAP: PERSONAL HEALTH PLAN INVENTORY & MAP [place]'s Response: family and health Frail/Elderly Screen: ADL Screen - [place] Index of [place] in Activities of Daily Living Bathing: (3 Points) Receives no assistance (gets in and out of tub by self, if tub is usual means of bathing) Dressing: (3 Points) Gets clothes and gets completely dressed without assistance. Toileting: (3 Points) Goes to toilet room , cleans self, and arranges clothes without assistance (may use object for support such as cane, walker, or wheelchair, and may manage own night bedpan or commode, emptying same next morning) Transferring: (3 Points) Moves in and out of bed and in and out of chair without assistance (may be using object for support, such as cane or walker) Continence: (3 Points) Controls urination and bowel movement completely by self Feeding: (3 Points) Feeds self without assistance Total Score: 18 Points 18 = High (patient independent) 6 = Low (patient very dependent) IADL Screen - Bam Instrumental Activities of Daily Living Scale Ability to use telephone: (1 point) Operates Telephone on own initiative; looks up and dials numbers. Shopping: (1 point) Takes care of all shopping needs independently. Food preparation: (1 point) Plans, prepares, and serves adequate meals independently. Housekeeping: (1 point) Performs light daily tasks, but cannot maintain acceptable level of cleanliness. Laundry: (1 point) Launders small items, rinses socks, stockings, etc. Mode of transportation: (1 point) Travels independently on public transportation or drives own car. Responsibility for own medications: (0 points) Takes responsibility if medication is prepared in advance in separate dosages. Ability to handle finances: (1 point) Manages financial matters independently (budgets, writes checks, pays rent and bills, goes to bank); collects and keeps track of income. Total score: 7 points 8 = High function, independent 0 = Low function, dependent Falls Screen: No falls within the past 12 months. Incontinence Screen: No incontinence. FALL RISK OP PB: RICKI FALL RISK ASSESSMENT Have you experienced any falls within the last 12 months: 0 = No Secondary Dx: 5 = Yes Secondary Dx Ambulatory Aid: 5 = Crutches/Walker/Cane Gait/Transferrin = Normal/Bedrest/Immobile Mental status: 0 = Oriented to own ability Medications: 5 = High risk meds TOTAL SCORE: 10 Score <30 - patient IS NOT at risk for falls. No action at this time. Reassess annually or if needed. Fall Documentation No - Patient did not experience a fall within the last year Sexual Orientation - CP,L,N,P,PH,PS,S,U: The patient thinks of their sexual orientation as: Straight or Heterosexual RHS Screen - VS: RHS Screen Session Format: Face to Face Environmental Check Upon inquiry, the individual reports that the environment is safe to proceed. Informed Consent to Screen and Document The individual consents to proceed with screening. The individual consents to documentation of responses. PRIMARY SCREEN: In the past 12 months, how often did a current or former intimate partner (e.g., boyfriend, girlfriend, , , sexual partner): 1. Scream or curse at you Never 2. Insult or talk down to you Never 3. Threaten you with harm Never 4. Physically hurt you Never 5. Force or pressure you to have sexual contact against your will, or when you were unable to say no Never The HITS tool (items 1-4 above) is US copyright protected by Dustin Davidson MD, and the user has full rights to use it throughout the ID system. PRIMARY SCREEN RESULT: The Primary Screen is NEGATIVE. The individual answered never to all forms of IPV above (i.e., answered never to all 5 items) The individual accepts education and/or resources: No EDUCATION: Other: na Comments: na COVID-19 Immunization - L,N,P,PH,U: Refused Moderna Monovalent COVID-19 vaccine Immunization: COVID-19 (MODERNA), MRNA, LNP-S, PF, 50 MCG/0.5 ML (AGES 12+ YEARS) Refusal Reason: PATIENT DECISION Patient refuses all immunization(s) in the COVID-19 group Date Documented: 08/25/24 11:32 Alcohol Use Screen (AUDIT-C) - V: Alcohol Screen: SCREEN FOR ALCOHOL (AUDIT-C) An alcohol screening test (AUDIT-C) was negative (score=0). 1. How often did you have a drink containing alcohol in the past year? Consider a drink to be a 12 ounce can or bottle of regular beer, 8 ounces of malt liquor, a 5 ounce glass of table wine, or a 1.5 ounce shot of liquor (like scotch, gin, or vodka). Never 2. How many drinks containing alcohol did you have on a typical day when you were drinking in the past year? Response not required due to responses to other questions. 3. How often did you have six or more drinks on one occasion in the past year? Response not required due to responses to other questions. Tobacco Use Screening - AT,DE,L,M,N,P,PH,PS,RT,S,U: The patient is a former cigarette smoker. Quit smoking GREATER THAN OR EQUAL to 15 years. The patient has never used other types of tobacco. Depression Screening - V: Perform PHQ-2 A PHQ-2 screen was performed. The score was 0 which is a negative screen for depression. Over the past two weeks, how often have you been bothered by the following problems? 1. Little interest or pleasure in doing things Not at all 2. Feeling down, depressed, or hopeless Not at all Homelessness/Food Insecurity Screen - DI,L,N,P,PH,PS,S,U: In the past 2 months, have you been living in stable housing that you own, rent, or stay in as part of a household? Yes - Living in stable housing. Are you worried or concerned that in the next 2 months you may NOT have stable housing that you own, rent, or stay in as part of a household? No - Not worried about housing near future The reports the following: Within the past 12 months, you worried whether your food would run out before you got money to buy more. Never true Within the past 12 months, the food you bought just didn't last and you didn't have money to get more. Never true Advanced Directive Screen/Senior Qa Engineer: ADVANCE DIRECTIVE SCREENING: I asked if the patient has an advance directive, and determined that: Patient has an Advance Directive. Patient does not wish to make any changes to the Advance Directive at this time. ADVANCE DIRECTIVE NOTIFICATION I provided the patient with written notification about advance directives. Level of understanding: Influenza Immunization - L,N,P,PH,U: Deferral / Refusal The patient declines to receive the recommended dose of seasonal influenza vaccine. Immunization: INFLUENZA, UNSPECIFIED FORMULATION Refusal Reason: PATIENT DECISION Patient refuses all immunization(s) in the FLU group Date Documented: 08/25/24 11:35 Pain Assessment: - PAIN ASSESSMENT: .. Patient reports no pain at this visit. Pain Score = 0. Patient's self identified pain goal: 0 VVC DIGITAL DIVIDE CAPABILITY REMINDER: Patient is not interested in VVC at this time. 'S RIGHT TO DECLINE STATEMENT understands they have the right to decline the use of Telehealth Technology at any time without adverse affects on their continued access to healthcare. [facility] MAP: PERSONAL HEALTH PLAN INVENTORY & MAP 's Response: family /nichelle/ CLARISA DANIELS LPN Signed: 08/25/2024 11:36 08/25/2024 ADDENDUM STATUS: COMPLETED PAVE Foot Check - L,N,P,PH,PO,PT,U: A complete foot check was completed at this encounter. VISUAL INSPECTION: Includes inspection for skin breaks, deformity, erythema, trauma, pallor on elevation, dependent rubor, nail deformities, extensive callus and pitting edema. Visual exam results: Normal Comment: Normal PEDAL PULSES: Includes palpation of dorsalis and posterior tibial pulses and signs/symptoms of vascular compromise like pain, pallor, parasthesia or paralysis. Present (even if diminished) Comment: Present SENSORY CHECK: Includes 10 gram Monofilament (Moro-Richard) test of sensation. Intact (Greater than or equal to 80% of sites checked) Abnormal (Less than 80% of sites checked): Intact Comment: Intact LOW-RISK: LOW RISK INFORMATION PROVIDED: 1. Advised patient not to walk barefoot. 2. Explained the importance of daily foot checks for changes. 3. Stressed the importance of daily foot hygiene, including bathing and complete drying. The patient verbalized understanding and was offered a detailed handout on diabetic foot care. /nichelle/ CLARISA DANIELS LPN Signed: 08/25/2024 11:55 CLARISA DANIELS [facility]
--- OUTSIDE RECORDS SUMMARY | 2024-10-26 08:59 | XMS_ITS | Encounter Summary ---
Author Name [facility] [place] [facility] [facility] [place] Address [address] [place] [address] Care Team Providers Care Deckhand Oyster Dredge Name Role Phone TATO BARRAZA Primary Care [...] PART A Feb 21, 2009 PART A [id number] ANGELLA MARTIN PATIENT MEDICARE (WNR) MEDICARE (M) PART B Feb 21, 2009 PART B [id number] ANGELLA MARTIN PATIENT MEDICARE (WNR) MEDICARE (M) PART A Feb 21, 2009 PART A [id number] [phone] ANGELLA MARTIN PATIENT MEDICARE (WNR) MEDICARE (M) PART B Feb 21, 2009 PART B [id number] ANGELLA MARTIN PATIENT MEDICARE (WNR) MEDICARE (M) PART B Feb 21, 2009 PART B [id number] MARTIN,ANGELLA E PATIENT MEDICARE (WNR) MEDICARE (M) PART A Feb 21, 2009 PART A [id number] ANGELLA MARTIN PATIENT [place] [place] [employer] PLAN F MEDIC ARE SUPPL EMENT 2013 PLAN F [id number] [phone] ANGELLA MARTIN PATIENT [employer] [place] [employer] MED[employer] SUPPLEMEN [place] MEDIC ARE SUPPL EMENT 2013 PLAN F [id number] [phone] ANGELLA MARTIN PATIENT Selected Encounter This section includes the information on record at [place] for the Encounter. Date/Time Encounter Type Encounter Description Reason Pro vider Source October 26, 2024 01:59 PM Outpatient Encounter ADMIN PAT ACTIVTIES (MASNONCT) IHE Encounter Template Text not used by [place] Plan of Treatment: Future Appointments (+ 6 months) and Future Tests (+/- 45 days) The Plan of Treatment section includes future care activities for the patient from all [place] treatmentfacilities. This section includes future appointments and future orders which are active, pending or scheduled. Future Appointments This section includes appointments that were scheduled to occur 6 months from the date of the Encounter, up to a maximum of 20 appointments. The data comes from all [place] treatment facilities. Appointment Date/Time Appointment Type Appointme nt Facility Name October 27, 2024 10:30 AM AMBULATORY - MEDICINE [facility] October 27, 2024 10:31 AM [facility] November 12, 2024 11:00 AM AMBUL[facility] - [facility]IC[facility] Dec 01, 2024 09:40 AM AMBULATORY - MEDICINE [facility] Dec 13, 2024 10:00 AM AMBULATORY - MEDICINE [facility] Dec 22, 2024 10:30 AM AMBULATORY MEDICINE [facility] Active, Pending, and Scheduled Orders This section includes a listing of several types of active, pending, and scheduled orders, including clinic medications orders, diagnostic test orders, procedure orders and consult orders; where the start date of the order is 45 days before the date of the Encounter or 45 days after the date of theEncounter. The data comes from all [place] treatment [facility]. Test Date/Time Test Type Test Details Facility Name Sep 15, 2024 01:23 PM Consult Order [facility]-HEMODIALYSIS [id number] Cons Discharge Planner's Choice [facility] Sep 15, 2024 01:23 PM Consult Order [facility]-NEPHROLOGY DIALYSIS OVERSIGHT [id number] Cons Discharge Planner's Choice [facility] Sep 29, 2024 07:55 AM Consult Order COMMUNITY [id number] Cons Discharge Planner's Choice [facility] Social History: Smoking Status (Most current) and Tobacco Use (All prior to encounter date) This section includes the most current, and the historical, smoking and tobacco- related health factors from the [place] facility where the Encounter took place. Current Smoking Status This section includes the most current smoking, or tobacco-related health factor, from the [place] facility where the Encounter took place. Date/Time Current Smoking Status Comment Facil ity Aug 25, 2024 11:00 AM VA-TOBACCO USE FORMER CIGARETTES [facility] Tobacco Use History This section includes a history of the smoking, or tobacco-related health factors, that were collected on or before the date of the Encounter. The data comes from the [place] facility where the Encounter took place. Date/Time Smoking Status/Tobacco Use Comment F acility Aug 25, 2024 11:00 AM VA-TOBACCO USE FORMER CIGARETTES [facility] Jun 13, 2023 11:00 AM VA-TOBACCO FORMER USER [facility] Jun 13, 2023 11:00 AM VA-TOBACCO QUIT 15 YRS OR MORE [facility] May 22, 2022 10:30 AM VA-TOBACCO FORMER USER [facility] May 22, 2022 10:30 AM VA-TOBACCO QUIT 15 YRS OR MORE [facility] May 24, 2021 09:00 AM VA-TOBACCO NEVER USED [facility] Feb 07, 2020 10:30 AM VA-TOBACCO FORMER USER [facility] Feb 07, 2020 10:30 AM VA-TOBACCO QUIT 15 YRS OR MORE [facility] Aug 04, 2018 03:05 PM VA-TOBACCO FORMER USER [facility] Aug 04, 2018 03:05 PM VA-TOBACCO QUIT 15 YRS OR MORE [facility] Jun 30, 2017 02:33 PM QUIT TOBACCO >7 YEARS AGO [facility] Sep 17, 2012 02:58 PM QUIT TOBACCO >7 YEARS AGO [facility] Nov 30, 2004 09:55 AM CURRENT NON-TOBACCO USER[facility] Jul 03, 2004 01:41 PM CURRENT NON-TOBACCO USER-HX OF [facility] Sep 01, 2003 02:24 PM CURRENT NON-TOBACCO USER-HX OF [facility] Sep 16, 2002 10:15 AM CURRENT NON-TOBACCO USER-HX OF [facility] Encounter Notes: All associated encounter notes This section contains the clinical notes associated to the Encounter. Date/Time Encounter Note(s) Provider Source October 26, 2024 01:59 PM GENERAL MEDICINE N OTE: LOCAL TITLE: General Note PB STANDARD TITLE: GENERAL MEDICINE NOTE DATE OF NOTE: OCTOBER 26, 2024@13:59 ENTRY DATE: OCTOBER 26, 2024@13:59:25 AUTHOR: MARICARMEN MENDOZA EXP COSIGNER: URGENCY: STATUS: COMPLETED Attempted to contact [place] to confirm 10/27/24 Audiology appt, no answer /es/ MARICARMEN MENDOZA Telehealth Clinical Biofuels Processing Technician Signed: 10/26/2024 14:00 MARICARMEN MENDOZA [facility]
--- OUTSIDE RECORDS SUMMARY | 2024-10-27 05:31 | XMS_ITS | Encounter Summary ---
Author Name [facility] Organization [facility] [place] Address [address] [place] [address] Care Team Providers Care Neurodiagnostic Technologist Name Role Phone TATO BARRAZA Primary Care [...] PART A Feb 21, 2009 PART A [id number] ANGELLA MARTIN PATIENT MEDICARE (WNR) MEDICARE (M) PART B Feb 21, 2009 PART B [id number] [phone] ANGELLA MARTIN PATIENT MEDICARE (WNR) MEDICARE (M) PART A Feb 21, 2009 PART A [id number] ANGELLA MARTIN PATIENT MEDICARE (WNR) MEDICARE (M) PART B Feb 21, 2009 PART B [id number] [phone] ANGELLA MARTIN PATIENT MEDICARE (WNR) MEDICARE (M) PART A Feb 21, 2009 PART A [id number] [phone] ANGELLA MARTIN PATIENT MEDICARE (WNR) MEDICARE (M) PART B Feb 21, 2009 PART B [id number] ANGELLA MARTIN PATIENT [employer] [place] [employer] PL[employer] F MEDIC ARE SUPPL EMENT 2013 PLAN F [id number] [phone] ANGELLA MARTIN PATIENT [employer] [place] [employer] SUPP[place]MEN [place] MEDIC ARE SUPPL EMENT 2013 PLAN F [id number] [phone] ANGELLA MARTIN PATIENT Selected Encounter This section includes the information on record at [place] for the Encounter. Date/Time Encounter Type Encounter Description Reason Provider Source October 27, 2024 10:31 AM HEARING AID REPAIR/MODIFYIN G AUDIOLOGY ICD-10-CM Z46.1 Encounter for fitting and adjustment of hearing aid KEISHERIF RA Hanson [facility] Encounter Template Text not used by [place] Assessments - Encounter Diagnoses This section includes the primary and secondary diagnoses documented for the Encounter. Date/Time Primary/Secondary Diagnosis Diagnosis Name Provider Source October 27, 2024 10:35 AM PRIMARY Encounter for fitting and adjustment of hearing aid KEISHERIF WORTHY [facility] October 27, 2024 10:35 AM SECONDARY Sensorineural hearing loss, bilateral RENARD CHOUDHURYYOSELIN RIGGSAR DEACON [facility] October 27, 2024 10:35 AM SECONDARY Tinnitus, bilateral SHERIF CHOUDHURY Valentin KEELYAR DEACON [facility] Plan of Treatment: Future Appointments (+ 6 months) and Future Tests (+/- 45 days) The Plan of Treatment section includes future care activities for the patient from all [place] treatmentfacilities. This section includes future appointments and future orders which are active, pending or scheduled. Future Appointments This section includes appointments that were scheduled to occur 6 months from the date of the Encounter, up to a maximum of 20 appointments. The data comes from all [place] treatment facilities. Appointment Date/Time Appointment Type Appointme nt Facility Name November 12, 2024 11:00 AM AMBULATORY - MEDICINE [facility]AC[facility] Dec 01, 2024 09:40 AM AMBULATORY - MEDICINE [facility] Dec 13, 2024 10:00 AM [facility] Dec 22, 2024 10:30 AM AMBULATORY - MEDICINE [facility] Active, Pending, and Scheduled Orders This section includes a listing of several types of active, pending, and scheduled orders, including clinic medications orders, diagnostic test orders, procedure orders and consult orders; where the start date of the order is 45 days before the date of the Encounter or 45 days after the date of theEncounter. The data comes from all [place] treatment facilities. Test Date/Time Test Type Test Details Facility Name Sep 15, 2024 01:23 PM Consult Order [facility]HEMODIAL[facility] [id number] Cons Front End Java Developer's Choice [facility] Sep 15, 2024 01:23 PM Consult Order [facility]-NEPHROLOGY DIALYSIS OVERSIGHT [id number] Cons Front End Java Developer's Choice [facility] Sep 29, 2024 07:55 AM Consult [id number] Cons Front End Java Developer's Choice [facility] Encounter Notes: All associated encounter notes This section contains the clinical notes associated to the Encounter. Date/Time Encounter Note(s) Provider Source October 27, 2024 07:18 AM AUDIOLOGY NOTE: LOCAL TITLE: HEARING CLINIC STANDARD TITLE: AUDIOLOGY NOTE DATE OF NOTE: OCTOBER 27, 2024@07:18 ENTRY DATE: OCTOBER 27, 2024@07:18:22 AUTHOR: BRANDY CHOUDHURY COSIGNER: URGENCY: STATUS: COMPLETED Diagnosis: Sensorineural Hearing Loss, Bilateral and Tinnitus, Bilateral Treatment: Hearing Aid Check Time spent with [place]: 30 minutes seen for a hearing aid check via Audio Telehealth and verbally consented to the Telehealth modality. Multi-factor personally identifiable information of the was obtained verbally (full name and date of ). [place] accompanied by: none Patient site: [place] ____ HISTORY: Reason for Appointment: Patient is here today reporting that he has not worn his hearing aids in several months. He states that the hearing aids charged for nine days and ever since they have not worked correctly. He reports gain fades and devices quit half way through the day. He denies hearing low battery warning. HEARING DEVICES: 12/2023 PHONAK AUDEO L90-RL FRED L [id number] 01/16/27 06/15/2412/2023 PHONAK AUDEO L90-RL FRED R [id number] 01/16/27 06/15/24 - P BOTTOM PRECIPITATOR OPERATOR 5.0 - SIZE 3 - PHONAK CSHLL 4.0 ACRYLIC TAPER CANAL - CERUSTOP Phone Connectivity: no BACK UP HEARING DEVICES: 09/2017 PHONAK AUDEO G32-798F FRED L [id number] 09/2017 PHONAK AUDEO [id number] FRED R [id number] -XPOWER BOTTOM PRECIPITATOR OPERATOR - SIZE 3 -CSHLL ACRYLIC MEDIUM SELECT A VENT TAPER CANAL REMOVAL FILAMENT -CERUSTOP OBJECTIVE/ASSESSMENT: Otoscopy was performed by collaboration of telehealth clinical fibre composite technician and provider via telehealth technology/video otoscope which revealed: Right ear: unremarkable Left ear: unremarkable Visual inspection of both hearing aids revealed plugged filters and vents. Both hearing aids were cleaned including replacement of filters and removal of build- up from vents. A listening check performed by the TCT confirmed proper function. The was counseled/educated on services provided today and is in agreement with the plan. PLAN: Follow up as needed or scheduled. Patient provided with [facility] box to mail devices direct if problem persists. /es/ Afia Baca [facility] Signed: 10/27/2024 10:46 BRANDY CHOUDHURY [facility]
--- OUTSIDE RECORDS SUMMARY | 2024-12-04 00:47 | XMS_ITS | Encounter Summary ---
Author Organization [employer] Address [address] [place] [address] Care Team Providers Care Hospital Clerk Name Role Phone Paula Sandoval MD Primary Care Provider + [phone] Reason for Referral * Eval and Treat (8-30 Days) - Open Specialty Diagnoses / Procedures Referred By Contac t Referred To Contact Diagnoses Severe sepsis with septic shock ([facility]/HCC) Melena Acute blood loss anemia Procedures NE OFFICE/OUTPATIENT ESTABLISHED MOD MDM 30 MIN NE OFFICE/OUTPATIENT NEW MODERATE MDM 45 MINUTES Ruperto Gomez MD [address] [place] [address] Phone: tel: fax: Referral ID Status Reason Start Date Expiration Date Visits Re quested Visits Authorized [id number] Open 12/11/2024 12/11/2025 1 1 * Eval and Treat (Routine) - Closed Specialty Diagnoses / Procedures Referred By Contac t Referred To Contact Diagnoses Severe sepsis with septic shock ([facility]/HCC) Melena Acute blood loss anemia Procedures NE OFFICE/OUTPATIENT ESTABLISHED MOD MDM 30 MIN NE OFFICE/OUTPATIENT NEW MODERATE MDM 45 MINUTES Ruperto Gomez MD [address] [place] [address] Phone: tel: fax: Referral ID Status Reason Start Date Expiration Date Visits Re quested Visits Authorized [id number] Closed 12/11/2024 12/11/2025 1 1 Reason for Visit * Auth/Cert (Routine) Specialty Diagnoses / Procedures Referred By Rita t Referred To Contact Radiology [facility] Echo [address] [place] [address] Phone: tel: fax: Referral ID Status Reason Start Date Expiration Date Visits Re quested Visits Authorized [id number] 1 1 Encounter Details Date Type Department Care Team (Latest Contact Info) Description 12/04/2024 12:47 AM CDT - 12/11/2024 8:00 PM CDT Hospital Encounter [facility] 3D Medical Telemetry [address] [place] [address] Jim Asif MD [address] [place] [address] Walt Aguero MD [address] [address] Valencia Singh MD [address] [place] [address] Jazmin Lema MD [address] [place] [address] Ruperto Gomez MD [address] [place] [address] Severe sepsis with septic shock ([facility]) Discharge Disposition: Home or Self Care Social History Tobacco Use Types Packs/Day Years Used Date Smoking Tobacco: Former Cigarettes Smokeless Tobacco: Never Alcohol Use Standard Drinks/Week Comments Not Currently 0 (1 standard drink = 0.6 oz pur e alcohol) holidays/ special occasions Feeling Safe Answer Date Recorded Are you in a relationship wi th someone who hurts you emotionally and/or physically? No 12/06/2024 Food Insecurity Answer Date Recorded Patient needs follow up regardin 10/15/2024 Transportation Needs Answer Date Record ed Patient needs follow up regardin 10/15/2024 Housing Stability Answer Date Recorded Social/Environmental Concerns No concerns Utility Needs Answer Date Recorded Patient needs follow up regardin 10/15/2024 Sex and Gender Information Value Date Recorded Sex Assigned at Not on file Legal Sex Male 12:42 PM CDT Gender Identity Not on file Sexual Orientation Not on file documented as of this encounter Last Filed Vital Signs Vital Sign Reading Time Taken Comments Blood Pressure 135/47 12/11/2024 4:47 PM CDT Pulse 64 12/11/2024 4:47 PM CDT Temperature 36.6 C (97.8 F) 12/11/2024 4:47 PM CDT Respiratory Rate 18 12/11/2024 4:47 PM CDT Oxygen Saturation 84% 12/11/2024 4:47 PM CDT Inhaled Oxygen Concentration - - Weight 100 kg (220 lb 7.4 oz) 12/11/2024 4:05 AM CDT Height 180.3 cm (5' 11 ) 12/04/2024 1:00 AM CDT Body Mass Index 30.75 12/04/2024 1:00 AM CDT documented in this encounter Discharge Summaries * Ruperto Gomez MD - 12/11/2024 5:41 PM CDT Images from the original note were not included. [facility]- Discharge Summary Nisa Renae 79 y.o. male 1945 CSN: [id number] Date of Admission: 12/04/2024 Date of Discharge: 12/11/2024 LOS: 7 days Discharging Physician: Ruperto Gomez MD PCP: Paula Sandoval MD Code Status at Discharge: NO CPR (In Event of Cardiopulmonary Arrest) Dispo: Home Labs and studies from this hospitalization needing follow up: in . Pending Labs Order Current Status PATHOLOGY In process Abnormal Imaging: See imaging tab Follow up with PCP: You must follow up with Paula Sandoval MD Follow up with Consultants: pcp in 1 week. Gi in 4 weeks. Future Appointments Date Time Provider Department Center 12/17/2024 1:45 PM Klarissa Flowers MD [email or web address] 12/23/2024 12:00 PM Umm Dotson, DO [facility] 01/21/2025 11:00 AM Lyndsey Dorsey, [facility] Discharge Condition: improving Primary Discharge Diagnosis: Severe sepsis with septic shock (CMS/HCC) Other Active medical issues also addressed during this admission: Active Hospital Problems Diagnosis Melena Acute blood loss anemia Ischemic dilated cardiomyopathy (CMS/HCC) Acute cystitis Severe sepsis with septic shock (CMS/HCC) ESRD (end stage renal disease) on dialysis (CMS/HCC) Metabolic acidosis Elevated troponin level Chronic combined systolic and diastolic CHF (congestive heart failure) (CMS/HCC) Dilated cardiomyopathy (CMS/HCC) Thrombocytopenia CLL (chronic lymphocytic leukemia) (CMS/HCC) Resolved Hospital Problems No resolved problems to display. HOSPITAL COURSE: Acutely ill 79-year-old male with a history of CLL, dilated cardiomyopathy with HFrEF and LVEF 20 to 25%, ESRD on HD, SSS with PPM presenting with shortness of breath, chest discomfort admitted to the ICU with shock, metabolic acidosis, sepsis, and elevated troponin. Hemodynamics stable and vasopressors remain off. NG tube placed for nausea, vomiting with symptom relief this morning. Continue bowel regimen. ABD x-ray without bowel obstruction. Cardiology consulted for significantly elevated troponin without signs of ACS. Suspect type II demand ischemia from septic shock. Echo shows LVEF of 26%, RV dysfunction, G2 DD, moderate TR, moderate MR which is similar to previous exams. No plan for ischemic workup at this time. Continue heparin drip x 48hr per cardiology recommendation. On ASA and statin. Monitor platelets. Becoming thrombocytopenic. Continue with ceftriaxone for severe sepsis and septic shock. UA was abnormal but urine culture without growth. Will plan for 5 days of empiric coverage. Took over patient's care today 12/07: Discussed with cardiology, okay to stop IV heparin after 48 hours. Oncology consulted due to leukocytosis and thrombocytopenia with history of CLL. Remains on IV Rocephin. 12/08: Cardiology signed off. Remains on IV antibiotics. Cultures remain negative. 12/09: Stool positive for occult blood. Start empiric Protonix. GI consulted. 12/10: Plan for EGD today. 12/11 Assumed care of patient today. Monitor h/h EGD 12/10: - Normal esophagus. - Non-bleeding gastric ulcers with a flat pigmented spot (Coleman Class IIc). Biopsied. - Normal examined duodenum. Recs: Repeat EGD after 8 weeks. Twice daily PPI therapy. Anticipate dc tomorrow if remains stable. Addendum: pt adamant that he wants to go home today. Will dc with pcp f/u in 1 week. Repeat h/h in 1 week. PCP COMMUNICATION : Paula Sandoval MD via [employer] communication MEDICATION CHANGES (significant): As below MEDICATION RECONCILIATION: Current and discharge medications reviewed and reconciled: Yes Consultants: IP CONSULT TO IV TEAM IP CONSULT TO DENTAL HYGIENE Procedures performed: 12/11 1701 Note By: Dustin Stokes RN 12/11 1200 HEMODIALYSIS 12/10 1109 UPPER ENDOSCOPY REPORT 12/09 1035 Note By: Lexi Bell RN 12/09 0757 Note By: Fabiola Puente NP Procedure(s) (LRB): ESOPHAGOGASTRODUODENOSCOPY (N/A) DISCHARGE MEDICATIONS: Medication List START taking these medications pantoprazole 40 mg Tablet, Delayed Release (E.C.) Commonly known as: PROTONIX Take 1 Tablet (40 mg) by mouth 2 times daily. Signed by: Vernon Gomez MD Quantity: 60 Tablet Refills: 0 CHANGE how you take these medications atorvastatin 80 mg tablet Commonly known as: LIPITOR What changed: when to take this Take 1 Tablet (80 mg) by mouth daily. Signed by: Dr. Geoff Tsang Quantity: 30 Tablet Refills: 0 CONTINUE taking these medications acetaminophen 325 mg tablet Commonly known as: TYLENOL Take 325 mg by mouth every 6 hours as needed. Refills: 0 * carvediloL 6.25 mg tablet Commonly known as: COREG Take 1 Tablet (6.25 mg) by mouth every 12 hours. Signed by: Nurse Practitioner Livier Dorsey Quantity: 90 Tablet Refills: 3 * carvediloL 3.125 mg tablet Commonly known as: COREG Take 1 Tablet by mouth. Refills: 0 cholecalciferol (Vitamin D3) 25 mcg (1,000 unit) Capsule Commonly known as: VITAMIN D3 Take by mouth daily. Refills: 0 diclofenac sodium 1 % gel Commonly known as: VOLTAREN Apply 4 Grams to affected area 4 times daily as needed for Pain. Refills: 0 docusate sodium 100 mg capsule Commonly known as: COLACE Take 100 mg by mouth 2 times daily as needed for Constipation. Refills: 0 EPOGEN INJECTION Epoetin Janet (Epogen) Refills: 0 finasteride 5 mg tablet Commonly known as: PROSCAR Take 5 mg by mouth daily. Refills: 0 fluticasone propionate 50 mcg/spray [place], Suspension nasal inhaler Commonly known as: FLONASE Administer 1 [place] in each nostril 2 times daily. Refills: 0 furosemide 40 mg tablet Commonly known as: LASIX Take 2 Tablets (80 mg) by mouth two times daily, 7 hours apart. Signed by: Dr. Geoff Tsang Quantity: 120 Tablet Refills: 0 glucosamine-chondroitin 500-400 mg Capsule Commonly known as: ARTHX DS Take 1 Capsule by mouth. Refills: 0 insulin glargine 100 unit/mL pen syringe Commonly known as: LANTUS Inject 50 Units by subcutaneous injection daily. Refills: 0 isosorbide mononitrate 120 mg Extended Release 24 hour tablet Commonly known as: IMDUR Take 1 Tablet by mouth. Refills: 0 loratadine 10 mg tablet Commonly known as: CLARITIN Take 10 mg by mouth daily in the morning. Refills: 0 nitroglycerin 0.4 mg Tablet, Sublingual Commonly known as: NITROSTAT Place 0.4 mg under tongue every 5 minutes as needed for Chest Pain. Refills: 0 oxyCODONE-acetaminophen 5-325 mg tablet Commonly known as: PERCOCET Take 1 Tablet by mouth every 4 hours as needed for Pain, Moderate. Max Daily Amount: 6 Tablets Signed by: Klarissa Flowers Quantity: 15 Tablet Refills: 0 sevelamer carbonate 800 mg Tablet Commonly known as: RENVELA Take 800 mg by mouth. Refills: 0 tamsulosin 0.4 mg capsule Commonly known as: FLOMAX Take 0.4 mg by mouth daily. Refills: 0 * !!Potential duplicate medications found. Review medication list carefully. Where to Get Your Medications These medications were sent to [facility] [address] [place] [address] [address], [facility] [address] pantoprazole 40 mg Tablet, Delayed Release (E.C.) Future Appointments Date Time Provider Department Center 12/17/2024 1:45 PM Klarissa Flowers MD [facility] 12/23/2024 12:00 PM Umm Dotson, [facility] 01/21/2025 11:00 AM Lyndsye Dorsey, [facility] Activity level: up as tolerated Diet: DIET SUPPLEMENT GEN ADULT BID; Renal, DIET RENAL Wound Care: Not Applicable DISCHARGE EXAM: BP 135/47 (BP Location: Left arm, Patient Position (BP): Sitting) Pulse 64 Temp 97.8 ??F (36.6 ??C) (Oral) Resp 18 Ht 5' 11 (1.803 m) Wt 100 kg (220 lb 7.4 oz) SpO2 (!) 84% BMI 30.75 kg/m?? Last documented weight: Weight: 100 kg (220 lb 7.4 oz) (12/11/24 0405) General: alert, in no distress Neurologic: Grossly normal HEENT: atraumatic, Normocephalic, without obvious abnormality Lungs: clear to auscultation bilaterally, normal respiratory effort Heart: normal rate, regular rhythm, normal S1, S2, no murmurs, rubs, clicks or gallops Abdomen: Soft, non-tender. Bowel sounds normal. No masses, no organomegaly. Extremities: intact distal pulses, moves all extremities equally, no edema, redness or tenderness in the calves or thighs Skin: negative Home Healthcare Is this patient being discharged with Home Health? No Total time spent on discharge services today including examining and educating the patient and 1 available family members, writing prescriptions and reviewing the discharge medication list, documenting this discharge summary and coordinating outpatient care and follow up required >30 minutes. documented in this encounter Discharge Instructions * Discharge Instructions* Estelita Bañuelos RN - 12/11/2024 7:52 AM CDT MEDICAL DISCHARGE INSTRUCTIONS Discharge to: Home Follow up: Follow up with your primary care provider in 3-5 days. Please call your primary care physician's office on FridayDecember 13 2024 to schedule this follow up appointment. Follow up with [facility] A referral has been placed for you to be seen in this clinic.The clinic will call you to schedule this appointment Keep all other scheduled appointments. Future Appointments Date Time Provider Department Center 12/17/2024 1:45 PM Klarissa Flowers MD [email or web address] 12/23/2024 12:00 PM Umm Dotson, [facility] 01/21/2025 11:00 AM Lyndsey Dorsey, [facility] Tests/Labs: Diet: DIET SUPPLEMENT GEN ADULT BID; Renal, DIET RENAL Activity: Increase activity as tolerated. Rest between activities. When to call Dr: Temperature above 101 Shortness of breath Symptoms that brought you to the hospital return New onset of pain not relieved by medication Special Instructions: Continue dialysis as scheduled Ruperto Gomez MD Kelli J Kirk, RN, 12/11/2024 7:52 AM * Attachments The following attachments cannot be sent through Care Everywhere. * Sepsis ([place]) * Pantoprazole ([place]) documented in this encounter Medications at Time of Discharge pantoprazole (PROTONIX) 40 mg Tablet, Delayed Release (E.C.) Take 1 Tablet (40 mg) by mouth 2 times daily. 60 Tablet 12/11/2024 oxyCODONE-acetami nophen (PERCOCET) 5-325 mg tabletIndications :ESRD (end stage renal disease) ([facility]) Take 1 Tablet by mouth every 4 hours as needed for Pain, Moderate. Max Daily Amount: 6 Tablets 15 Tablet 11/29/2024 11:43 AM CDT 11/29/2024 epoetin janet (EPOGEN INJECTION) Epoetin Janet (Epogen) 11/09/2024 carvediloL (COREG) 3.125 mg tablet Take 1 Tablet by mouth. 10/26/2024 glucosamine-chond roitin (ARTHX DS) 500-400 mg Capsule Take 1 Capsule by mouth. carvediloL (COREG) 6.25 mg tablet Take 1 Tablet (6.25 mg) by mouth every 12 hours. 90 Tablet 3 07/21/2024 isosorbide mononitrate (IMDUR) 120 mg Extended Release 24 hour tablet Take 1 Tablet by mouth. 04/27/2024 sevelamer carbonate (RENVELA) 800 mg Tablet Take 800 mg by mouth. 04/14/2024 atorvastatin (LIPITOR) 80 mg tablet Take 1 Tablet (80 mg) by mouth daily. 30 Tablet 04/06/2024 1:52 PM CDT 04/06/2024 furosemide (LASIX) 40 mg tablet Take 2 Tablets (80 mg) by mouth two times daily, 7 hours apart. 120 Tablet 04/06/2024 1:52 PM CDT 04/06/2024 diclofenac sodium (VOLTAREN) 1 % gel Apply 4 Grams to affected area 4 times daily as needed for Pain. loratadine (CLARITIN) 10 mg tablet Take 10 mg by mouth daily in the morning. nitroglycerin (NITROSTAT) 0.4 mg Tablet, Sublingual Place 0.4 mg under tongue every 5 minutes as needed for Chest Pain. docusate sodium (COLACE) 100 mg capsule Take 100 mg by mouth 2 times daily as needed for Constipation. fluticasone propionate (FLONASE) 50 mcg/spray [place], Suspension nasal inhaler Administer 1 [place] in each nostril 2 times daily. acetaminophen (TYLENOL) 325 mg tablet Take 325 mg by mouth every 6 hours as needed. finasteride (PROSCAR) 5 mg tablet Take 5 mg by mouth daily. cholecalciferol, Vitamin D3, (VITAMIN D3) 25 mcg (1,000 unit) Capsule Take by mouth daily. insulin glargine (LANTUS) 100 unit/mL pen syringe Inject 50 Units by subcutaneous injection daily. tamsulosin (FLOMAX) 0.4 mg capsule Take 0.4 mg by mouth daily. documented as of this encounter Progress Notes * Ruperto Gomez MD - 12/11/2024 3:31 PM CDT Images from the original note were not included. Your life is our life's work [facility] Hospitalist/Hospital Medicine Progress Note LOS: 7 days Room/Bed: 3254/02 Patient name: Nisa Renae Date of : 1945 HOSPITAL COURSE SUMMARY: Acutely ill 79-year-old male with a history of CLL, dilated cardiomyopathy with HFrEF and LVEF 20 to 25%, ESRD on HD, SSS with PPM presenting with shortness of breath, chest discomfort admitted to the ICU with shock, metabolic acidosis, sepsis, and elevated troponin. Hemodynamics stable and vasopressors remain off. NG tube placed for nausea, vomiting with symptom relief this morning. Continue bowel regimen. ABD x-ray without bowel obstruction. Cardiology consulted for significantly elevated troponin without signs of ACS. Suspect type II demand ischemia from septic shock. Echo shows LVEF of 26%, RV dysfunction, G2 DD, moderate TR, moderate MR which is similar to previous exams. No plan for ischemic workup at this time. Continue heparin drip x 48hr per cardiology recommendation. On ASA and statin. Monitor platelets. Becoming thrombocytopenic. Continue with ceftriaxone for severe sepsis and septic shock. UA was abnormal but urine culture without growth. Will plan for 5 days of empiric coverage. Took over patient's care today 12/07: Discussed with cardiology, okay to stop IV heparin after 48 hours. Oncology consulted due to leukocytosis and thrombocytopenia with history of CLL. Remains on IV Rocephin. 12/08: Cardiology signed off. Remains on IV antibiotics. Cultures remain negative. 12/09: Stool positive for occult blood. Start empiric Protonix. GI consulted. 12/10: Plan for EGD today. 12/11 Assumed care of patient today. Monitor h/h EGD 6/20: - Normal esophagus. - Non-bleeding gastric ulcers with a flat pigmented spot (Coleman Class IIc). Biopsied. - Normal examined duodenum. Recs: Repeat EGD after 8 weeks. Twice daily PPI therapy. Anticipate dc tomorrow if remains stable. Consultants: IP CONSULT TO IV TEAM IP CONSULT TO DENTAL HYGIENE SUBJECTIVE: The patient is seen and examined at bedside. He is feeling fairly well. No new complaints. OBJECTIVE: Temp (24hrs), Av.7 ??F (36.5 ??C), Min:97.4 ??F (36.3 ??C), Max:98.3 ??F (36.8 ??C) BP (!) 130/44 Pulse 64 Temp 97.6 ??F (36.4 ??C) Resp 19 Ht 5' 11 (1.803 m) Wt 100 kg (220 lb 7.4 oz) SpO2 100% BMI 30.75 kg/m?? Intake/Output Summary (Last 24 hours) at 12/11/2024 1532 Last data filed at 12/11/2024 1145 Gross per 24 hour Intake 240 ml Output -- Net 240 ml Last documented weight: Weight: 100 kg (220 lb 7.4 oz) (12/11/24 0405) EXAM: General: alert, in no distress Neurologic: Grossly normal HEENT: atraumatic, Normocephalic, without obvious abnormality Lungs: clear to auscultation bilaterally, normal respiratory effort Heart: normal rate, regular rhythm, normal S1, S2, no murmurs, rubs, clicks or gallops Abdomen: Soft, non-tender. Bowel sounds normal. No masses, no organomegaly. Extremities: intact distal pulses, moves all extremities equally, no edema, redness or tenderness in the calves or thighs Skin: negative Unchanged from yesterday LABORATORY: Recent Labs 12/09/24 0407 12/10/24 0334 12/10/24201012/11/24 0858 12/11/24 1003 WBC 46.4* 58.2* -- 74.4* 59.3* HGB 7.8* 7.3* 7.6* 7.8* 7.3* HCT 24.4* 23.8* 25.0* 25.0* 23.5* PLT 63* 56* -- 79* 72* Recent Labs 12/11/24 0858 NA 134* K 4.2 CL 96* CO2 22 CA 8.2* BUN 59* CREAT 5.39* GLUCOSE 196* Recent Labs 12/11/24 0858 ALBUMIN 3.8 No results for input(s): INR , PT in the last 72 hours. Invalid input(s): PTT No results for input(s): BASETROP , 2HRTROP , DELTA , 6HRTROP in the last 72 hours. Diagnostic testing reviewed by me: Medications were reviewed by me. Current Facility-Administered Medications: darbepoetin janet (ARANESP) 60 mcg/mL injection 60 mcg, 60 mcg, subCUT, every 7 days, Addy Jacobs, INCOME TAX ADJUSTER [COMPLETED] sodium chloride 0.9 % bolus solution 1,000 mL, 1,000 mL, See Admin Instructions, ONE time only, Addy Jacobs, INCOME TAX ADJUSTER, Stopped at 12/11/24 1215 pantoprazole (PROTONIX) 40 mg in sodium chloride 0.9% 10 mL injection, 40 mg, IV, BID, Roger Sanchez PA, 40 mg at 12/11/24 0914 empagliflozin (JARDIANCE) tablet 10 mg, 10 mg, Oral, daily EARLY, Eugenie Mederos FNP, 10 mg at 12/11/24 0914 [Held by Provider] heparin injection 5,000 Units, 5,000 Units, subCUT, every 8 hours, Jazmin Lema MD, 5,000 Units at 12/08/24 1300 zinc OXIDE-cod liver oil (DESITIN) 40 % topical paste, , Topical, BID, Jazmin Lema MD,Given at 12/11/24 0900 polyethylene glycol (MIRALAX) packet 17 Gram, 17 Gram, Oral, BID, Dustin Michel ANP, 17 Gram at 12/09/24 203 midodrine (PROAMATINE) tablet 5 mg, 5 mg, Oral, every 8 hours PRN, Dustin Michel ANP, 5 mg at 12/09/24 0718 insulin glargine (LANTUS) injection 14 Units, 14 Units, subCUT, BID, Dustin Michel ANP, 14 Unitsat 12/11/24 0912 insulin lispro (HumaLOG,ADMELOG) injection 0-18 Units, 0-18 Units, subCUT, TID WITH meals, Dustin Michel, ANP, 3 Units at 12/11/24 0913 insulin lispro (HumaLOG,ADMELOG) injection 0-9 Units, 0-9 Units, subCUT, daily BEDTIME, Dustin Michel B, ANP insulin lispro (HumaLOG,ADMELOG) injection 0-9 Units, 0-9 Units, subCUT, daily at 0200, Dustin Michel, ANP, 3 Units at 12/11/24 0255 prochlorperazine (COMPAZINE) injection 5 mg, 5 mg, IV, every 6 hours PRN, Dustin Michel, ANP, 5 mg at 12/05/24 1031 atorvastatin (LIPITOR) tablet 20 mg, 20 mg, Oral, daily BEDTIME, Dustin Michel, ANP, 20 mg at 12/10/242026 insulin lispro (HumaLOG,ADMELOG) injection 5 Units, 5 Units, subCUT, QID WITH meals and HS, Dustin Michel, ANP, 5 Units at 12/11/24 09 bisacodyL (DULCOLAX) rectal suppository 10 mg, 10 mg, Rectal, daily, Dustin Michel, ANP, 10 mg at12/09/24 112 naloxone (NARCAN) 0.4 mg/mL injection 0.1-0.4 mg, 0.1-0.4 mg, IV, see admin instructions, Dustin Michel ANP tamsulosin (FLOMAX) SR 24 hour capsule 0.4 mg, 0.4 mg, Oral, daily AFTER supper, Dustin Michel, ANP, 0.4 mg at 12/10/24 1745 acetaminophen (TYLENOL) tablet 650 mg, 650 mg, Oral, every 6 hours PRN, Dustin Michel, ANP ondansetron (ZOFRAN) 4 mg/2 mL injection 4 mg, 4 mg, IV, every 6 hours PRN, Dustin Michel, ANP, 4mg at 12/08/24 0555 finasteride (PROSCAR) tablet 5 mg, 5 mg, Oral, daily, Dustin Michel, ANP, 5 mg at 12/11/24 0915 hydrALAZINE (APRESOLINE) 20 mg/mL injection 10 mg, 10 mg, IV, every 4 hours PRN, Dustin Michel ANP dextrose 5 % - sodium chloride 0.9 % infusion, , IV, see admin instructions, Dustin Michel ANP dextrose 50% (D50) syringe 12.5 Gram, 12.5 Gram, IV, see admin instructions, Dustin Michel ANP dextrose 50% (D50) syringe 25 Gram, 25 Gram, IV, see admin instructions, Dustin Michel ANP glucagon HCL 1 mg/mL injection 1 mg, 1 mg, IM, see admin instructions, Dustin Michel ANP oxyCODONE-acetaminophen (PERCOCET) 5-325 mg per tablet 1 Tablet, 1 Tablet, Oral, every 4 hours PRN,Dustin Michel ANP, 1 Tablet at 12/08/24 1442 aluminum - magnesium - simethicone (MYLANTA) 200-200-20 mg/5 mL oral suspension 20 mL, 20 mL, Oral,ONE time only, Dustin Michel ANP sodium chloride flush injection 10 mL, 10 mL, IV, BID, Dustin Michel ANP, 10 mL at 12/11/24 0910 sodium chloride flush injection 10 mL, 10 mL, IV, see admin instructions, Dustin Michel ANP Primary discharge diagnosis: Severe sepsis with septic shock ([facility]/HCC) Other active medical issues also addressed during this admission: Active Hospital Problems Diagnosis Melena Acute blood loss anemia Ischemic dilated cardiomyopathy ([facility]/HCC) Acute cystitis Severe sepsis with septic shock ([facility]/HCC) ESRD (end stage renal disease) on dialysis ([facility]/HCC) Metabolic acidosis Elevated troponin level Chronic combined systolic and diastolic CHF (congestive heart failure) ([facility]/HCC) Dilated cardiomyopathy ([facility]/HCC) Thrombocytopenia CLL (chronic lymphocytic leukemia) ([facility]) Resolved Hospital Problems No resolved problems to display. ASSESSMENT AND PLAN: Hypotension on admission, resolved - Required Levophed in the ICU Suspected sepsis - Infectious workup has been negative so far. - s/p 5 days of IV CTX Elevated troponin/non-STEMI - Cardiology consulted. - Echocardiogram reviewed, appears stable. - S/p IV heparin for 48 hours. Cardiology has signed off. No ischemic workup planned for now End-stage renal disease on hemodialysis - Continue dialysis, nephrology following Leukocytosis, thrombocytopenia, anemia History of CLL - Now off IV heparin drip. - Oncology consulted. Continue to monitor CBC. No inpatient oncological rx recommended. - h/h stable Melena with stool positive for occult blood - The patient has been on IV heparin for 48 hours. Now off heparin. Monitor h/h EGD 12/10: - Normal esophagus. - Non-bleeding gastric ulcers with a flat pigmented spot (Coleman Class IIc). Biopsied. - Normal examined duodenum. Recs: Repeat EGD after 8 weeks. Twice daily PPI therapy. Anticipate dc tomorrow if remains stable. BPH: Continue finasteride, Flomax DVT prophylaxis: SCDs Code status: NO CPR (In Event of Cardiopulmonary Arrest) Anticipated Disposition Location: Home Timeframe: 12/11/2024 MDM complexity: [] Mild [x] Moderate [] High Ruperto Gomez MD 12/11/2024, 3:32 PM * Jazmin Lema MD - 12/10/2024 9:54 AM CDT Images from the original note were not included. Your life is our life's work [facility] Hospitalist/Hospital Medicine Progress Note LOS: 6 days Room/Bed: [facility] [place]/ Patient name: Nisa Renae Date of : 1945 HOSPITAL COURSE SUMMARY: Acutely ill 79-year-old male with a history of CLL, dilated cardiomyopathy with HFrEF and LVEF 20 to 25%, ESRD on HD, SSS with PPM presenting with shortness of breath, chest discomfort admitted to the ICU with shock, metabolic acidosis, sepsis, and elevated troponin. Hemodynamics stable and vasopressors remain off. NG tube placed for nausea, vomiting with symptom relief this morning. Continue bowel regimen. ABD x-ray without bowel obstruction. Cardiology consulted for significantly elevated troponin without signs of ACS. Suspect type II demand ischemia from septic shock. Echo shows LVEF of 26%, RV dysfunction, G2 DD, moderate TR, moderate MR which is similar to previous exams. No plan for ischemic workup at this time. Continue heparin drip x 48hr per cardiology recommendation. On ASA and statin. Monitor platelets. Becoming thrombocytopenic. Continue with ceftriaxone for severe sepsis and septic shock. UA was abnormal but urine culture without growth. Will plan for 5 days of empiric coverage. Took over patient's care today 12/07: Discussed with cardiology, okay to stop IV heparin after 48 hours. Oncology consulted due to leukocytosis and thrombocytopenia with history of CLL. Remains on IV Rocephin. 12/08: Cardiology signed off. Remains on IV antibiotics. Cultures remain negative. 12/09: Stool positive for occult blood. Start empiric Protonix. GI consulted. 12/10: Plan for EGD today. Consultants: IP CONSULT TO IV TEAM SUBJECTIVE: The patient is seen and examined at bedside in dialysis. He is feeling fairly well. No new complaints. OBJECTIVE: Temp (24hrs), Av ??F (36.7 ??C), Min:97.9 ??F (36.6 ??C), Max:98.1 ??F (36.7 ??C) BP (!) 146/73 (BP Location: Left leg) Pulse 65 Temp 98 ??F (36.7 ??C) (Oral) Resp 17 Ht 5' 11 (1.803 m) Wt 101 kg (222 lb 10.6 oz) SpO2 100% BMI 31.06 kg/m?? Intake/Output Summary (Last 24 hours) at 12/10/2024 1554 Last data filed at 12/10/2024 1130 Gross per 24 hour Intake 100 ml Output -- Net 100 ml Last documented weight: Weight: 101 kg (222 lb 10.6 oz) (12/10/24 0431) EXAM: General: alert, in no distress Neurologic: Grossly normal HEENT: atraumatic, Normocephalic, without obvious abnormality Lungs: clear to auscultation bilaterally, normal respiratory effort Heart: normal rate, regular rhythm, normal S1, S2, no murmurs, rubs, clicks or gallops Abdomen: Soft, non-tender. Bowel sounds normal. No masses, no organomegaly. Extremities: intact distal pulses, moves all extremities equally, no edema, redness or tenderness in the calves or thighs Skin: negative LABORATORY: Recent Labs 12/08/24 0423 12/09/24 0407 12/10/24 0334 WBC 35.1* 46.4* 58.2* HGB 8.2* 7.8* 7.3* HCT 25.8* 24.4* 23.8* PLT 68* 63* 56* Recent Labs 12/08/24 042 NA 136 K 4.3 CL 98 CO2 26 CA 8.8 BUN 54* CREAT 4.59* GLUCOSE 153* Recent Labs 12/08/24422 TOTALPROTEIN 5.4* ALBUMIN 3.5 BILITOTAL 0.4 ALKPHOS 85 AST 28 ALT 76* No results for input(s): INR , PT in the last 72 hours. Invalid input(s): PTT No results for input(s): BASETROP , 2HRTROP , DELTA , 6HRTROP in the last 72 hours. Diagnostic testing reviewed by me: Medications were reviewed by me. Current Facility-Administered Medications: pantoprazole (PROTONIX) 40 mg in sodium chloride 0.9% 10 mL injection, 40 mg, IV, BID, Roger Sanchez PA, 40 mg at 12/10/24 0926 empagliflozin (JARDIANCE) tablet 10 mg, 10 mg, Oral, daily EARLY, Eugenie Mederos FNP, 10 mg at 12/09/24 0536 [Held by Provider] heparin injection 5,000 Units, 5,000 Units, subCUT, every 8 hours, Jazmin Lema MD, 5,000 Units at 12/08/24 1300 zinc OXIDE-cod liver oil (DESITIN) 40 % topical paste, , Topical, BID, Jazmin Lema MD,Given at 12/10/24 0958 polyethylene glycol (MIRALAX) packet 17 Gram, 17 Gram, Oral, BID, Dustin Michel ANP, 17 Gram at 12/09/242038 [COMPLETED] cefTRIAXone (ROCEPHIN) 2,000 mg in sodium chloride 0.9% 50 mL IVPB (MBP), 2,000 mg, IV,every 24 hours (daily), Dustin Michel ANP, Stopped at 12/10/24 0951 midodrine (PROAMATINE) tablet 5 mg, 5 mg, Oral, every 8 hours PRN, Dustin Michel ANP, 5 mg at 12/09/24 0718 insulin glargine (LANTUS) injection 14 Units, 14 Units, subCUT, BID, Dustin Michel, ANP, 14 Unitsat 12/09/242037 insulin lispro (HumaLOG,ADMELOG) injection 0-18 Units, 0-18 Units, subCUT, TID WITH meals, Dustin Michel, ANP, 3 Units at 12/09/24 1126 insulin lispro (HumaLOG,ADMELOG) injection 0-9 Units, 0-9 Units, subCUT, daily BEDTIME, Dustin Michel, ANP insulin lispro (HumaLOG,ADMELOG) injection 0-9 Units, 0-9 Units, subCUT, daily at 0200, Dustin Michel ANP, 3 Units at 12/05/24 1353 prochlorperazine (COMPAZINE) injection 5 mg, 5 mg, IV, every 6 hours PRN, Dustin Michel, ANP, 5 mg at 12/05/24 103 atorvastatin (LIPITOR) tablet 20 mg, 20 mg, Oral, daily BEDTIME, Dustin Michel, ANP, 20 mg at 12/09/242040 insulin lispro (HumaLOG,ADMELOG) injection 5 Units, 5 Units, subCUT, QID WITH meals and HS, Dustin Michel, ANP, 5 Units at 12/09/242037 bisacodyL (DULCOLAX) rectal suppository 10 mg, 10 mg, Rectal, daily, Dustin Michel, ANP, 10 mg at12/09/241122 naloxone (NARCAN) 0.4 mg/mL injection 0.1-0.4 mg, 0.1-0.4 mg, IV, see admin instructions, Dustin Michel, ANP tamsulosin (FLOMAX) SR 24 hour capsule 0.4 mg, 0.4 mg, Oral, daily AFTER supper, Dustin Michel ANP, 0.4 mg at 12/09/24 180 acetaminophen (TYLENOL) tablet 650 mg, 650 mg, Oral, every 6 hours PRN, Dustin Michel, ANP ondansetron (ZOFRAN) 4 mg/2 mL injection 4 mg, 4 mg, IV, every 6 hours PRN, Dustin Michel ANP, 4mg at 12/08/24 0555 finasteride (PROSCAR) tablet 5 mg, 5 mg, Oral, daily, Dustin Michel ANP, 5 mg at 12/09/24 1119 hydrALAZINE (APRESOLINE) 20 mg/mL injection 10 mg, 10 mg, IV, every 4 hours PRN, Dustin Michel ANP dextrose 5 % - sodium chloride 0.9 % infusion, , IV, see admin instructions, Dustin Michel ANP dextrose 50% (D50) syringe 12.5 Gram, 12.5 Gram, IV, see admin instructions, Dustin Michel ANP dextrose 50% (D50) syringe 25 Gram, 25 Gram, IV, see admin instructions, Dustin Michel ANP glucagon HCL 1 mg/mL injection 1 mg, 1 mg, IM, see admin instructions, Dustin Michel ANP oxyCODONE-acetaminophen (PERCOCET) 5-325 mg per tablet 1 Tablet, 1 Tablet, Oral, every 4 hours PRN,Dustin Michel ANP, 1 Tablet at 12/08/24 1442 aluminum - magnesium - simethicone (MYLANTA) 200-200-20 mg/5 mL oral suspension 20 mL, 20 mL, Oral,ONE time only, Dustin Michel ANP sodium chloride flush injection 10 mL, 10 mL, IV, BID, Dustin Michel ANP, 10 mL at 12/10/24 0923 sodium chloride flush injection 10 mL, 10 mL, IV, see admin instructions, Dustin Michel ANP Facility-Administered Medications Ordered in Other Encounters: [DISCONTINUED] propofoL (DIPRIVAN) injection, , IV, intra-proc PRN, Stephanie Conti BUILDING CONSTRUCTION TEACHER, 40 mgat 12/10/24 1057 [DISCONTINUED] lidocaine 2 % (XYLOCAINE) injection, , IV, intra-proc PRN, Stephanie Conti CRNA,60 mg at 12/10/24 1055 [DISCONTINUED] sodium chloride 0.9 % infusion, , IV, intra-proc continuous PRN, Stephanie Conti CRNA, Stopped-Anesthesia at 12/10/24 1104 Primary discharge diagnosis: Severe sepsis with septic shock (CMS/HCC) Other active medical issues also addressed during this admission: Active Hospital Problems Diagnosis Melena Acute blood loss anemia Ischemic dilated cardiomyopathy ([facility]/HCC) Acute cystitis Severe sepsis with septic shock ([facility]/HCC) ESRD (end stage renal disease) on dialysis ([facility]/HCC) Metabolic acidosis Elevated troponin level Chronic combined systolic and diastolic CHF (congestive heart failure) ([facility]/HCC) Dilated cardiomyopathy ([facility]/HCC) Thrombocytopenia CLL (chronic lymphocytic leukemia) ([facility]) Resolved Hospital Problems No resolved problems to display. ASSESSMENT AND PLAN: Hypotension on admission, resolved - Required Levophed in the ICU Suspected sepsis - Infectious workup has been negative so far. - Continue IV ceftriaxone-complete treatment for 5 days Elevated troponin/non-STEMI - Cardiology consulted. - Echocardiogram reviewed, appears stable. - S/p IV heparin for 48 hours. Cardiology has signed off. No ischemic workup planned for now End-stage renal disease on hemodialysis - Continue dialysis, nephrology following Leukocytosis, thrombocytopenia, anemia History of CLL - Now off IV heparin drip. - Oncology consulted. Continue to monitor CBC - Hemoglobin is slowly trending downwards. Continue to monitor CBC closely Melena with stool positive for occult blood - The patient has been on IV heparin for 48 hours. Now off heparin. - GI consulted. Plan for EGD today - Continue empiric IV Protonix. BPH: Continue finasteride, Flomax DVT prophylaxis: SCDs Code status: NO CPR (In Event of Cardiopulmonary Arrest) Anticipated Disposition Location: Home Timeframe: 12/11/2024 MDM complexity: [] Mild [x] Moderate [] High Jazmin Lema MD 12/10/2024, 3:54 PM * Sofía Lewis, MAYA - 12/10/2024 6:56 AM CDT Patient seen/chart reviewed during routine patient care/meal rounds. Nutritional status/assessment: PO intake appears adequate for nutritional needs. No additional acute care nutritional risk factorsidentified. Malnutrition Nutrition Diagnosis: (at risk) (12/06/24 1300) Recommendation/Plan for follow up: Will continue to follow during weekly patient care/meal rounds, assisting with intake needs as appropriate. Current diet/nutrition support: DIET SUPPLEMENT GEN ADULT BID; Renal, DIET NPO Sips w/Meds, Food/Meal: Breakfast (12/08/24 0900),Intake (%): 60% (12/08/24 0900) Oral Supplement Type: Complete oral supplement-adult (12/07/24 1630) Weight status/changes: Weight: 101 kg (222 lb 10.6 oz) (12/10/24 0431) Admission :Weight: 105.2 kg (231 lb 14.4 oz) (12/04/24 0100) Height: 5' 11 (180.3 cm) (12/04/24 0100) Body mass index is 31.06 kg/m??. Wt Readings from Last 8 Encounters: 12/10/24 101 kg (222 lb 10.6 oz) 11/29/24 104.9 kg (231 lb 3.2 oz) 11/12/24 104.8 kg (231 lb) 10/25/24 104.3 kg (230 lb) 07/21/24 103.8 kg (228 lb 12.8 oz) 06/09/24 106.1 kg (234 lb) 04/06/24 102.6 kg (226 lb 3.1 oz) 01/30/21 102.6 kg (226 lb 3.2 oz) Additional assessment indices: Mahamed Score: 19 (12/09/242040) Last Bowel Movement (mm/dd/yyyy): 12/09/24 (12/09/24 1300) Allergies Allergies Allergen Reactions Febuxostat Hives Allopurinol Unknown Iodinated Contrast Media Unknown Iodine Unknown and Other (See Comments) rr Levofloxacin Unknown Metformin Unknown Quetiapine Hallucination Labs: Lab Results Component Value Date GLUCOSE 153 (H) 12/08/2024 * Jazmin Lema MD - 12/09/2024 2:46 PM CDT Images from the original note were not included. Your life is our life's work [facility] Hospitalist/Hospital Medicine Progress Note LOS: 5 days Room/Bed: 3254/02 Patient name: Nisa Renae Date of : 1945 HOSPITAL COURSE SUMMARY: Acutely ill 79-year-old male with a history of CLL, dilated cardiomyopathy with HFrEF and LVEF 20 to 25%, ESRD on HD, SSS with PPM presenting with shortness of breath, chest discomfort admitted to the ICU with shock, metabolic acidosis, sepsis, and elevated troponin. Hemodynamics stable and vasopressors remain off. NG tube placed for nausea, vomiting with symptom relief this morning. Continue bowel regimen. ABD x-ray without bowel obstruction. Cardiology consulted for significantly elevated troponin without signs of ACS. Suspect type II demand ischemia from septic shock. Echo shows LVEF of 26%, RV dysfunction, G2 DD, moderate TR, moderate MR which is similar to previous exams. No plan for ischemic workup at this time. Continue heparin drip x 48hr per cardiology recommendation. On ASA and statin. Monitor platelets. Becoming thrombocytopenic. Continue with ceftriaxone for severe sepsis and septic shock. UA was abnormal but urine culture without growth. Will plan for 5 days of empiric coverage. Took over patient's care today 12/07: Discussed with cardiology, okay to stop IV heparin after 48 hours. Oncology consulted due to leukocytosis and thrombocytopenia with history of CLL. Remains on IV Rocephin. 12/08: Cardiology signed off. Remains on IV antibiotics. Cultures remain negative. 12/09: Stool positive for occult blood. Start empiric Protonix. GI consulted. Consultants: IP CONSULT TO IV TEAM SUBJECTIVE: The patient is seen and examined at bedside in dialysis. He is feeling fairly well. No new complaints. OBJECTIVE: Temp (24hrs), Av.2 ??F (36.2 ??C), Min:96.2 ??F (35.7 ??C), Max:97.9 ??F (36.6 ??C) BP (!) 113/34 Pulse 62 Temp (!) 96.2 ??F (35.7 ??C) Resp 16 Ht 5' 11 (1.803 m) Wt 101.7 kg (224 lb 3.3 oz) SpO2 95% BMI 31.27 kg/m?? Intake/Output Summary (Last 24 hours) at 12/09/2024 1446 Last data filed at 12/09/2024 1045 Gross per 24 hour Intake 500 ml Output 1500 ml Net -1000 ml Last documented weight: Weight: 101.7 kg (224 lb 3.3 oz) (12/09/24 1045) EXAM: General: alert, in no distress Neurologic: Grossly normal HEENT: atraumatic, Normocephalic, without obvious abnormality Lungs: clear to auscultation bilaterally, normal respiratory effort Heart: normal rate, regular rhythm, normal S1, S2, no murmurs, rubs, clicks or gallops Abdomen: Soft, non-tender. Bowel sounds normal. No masses, no organomegaly. Extremities: intact distal pulses, moves all extremities equally, no edema, redness or tenderness in the calves or thighs Skin: negative LABORATORY: Recent Labs 12/07/24 0658 12/08/24 0423 12/09/24 0407 WBC 30.4* 35.1* 46.4* HGB 8.3* 8.2* 7.8* HCT 26.2* 25.8* 24.4* PLT 67* 68* 63* Recent Labs 12/07/2458 12/08/24 0423 NA 132* 136 K 4.4 4.3 CL 93* 98 CO2 22 26 CA 8.5* 8.8 BUN 96* 54* CREAT 6.58* 4.59* GLUCOSE 114* 153* Recent Labs 12/07/2458 12/08/24 0423 TOTALPROTEIN 5.2* 5.4* ALBUMIN 3.4* 3.5 BILITOTAL 0.6 0.4 ALKPHOS 69 85 AST 31 28 ALT 88* 76* No results for input(s): INR , PT in the last 72 hours. Invalid input(s): PTT No results for input(s): BASETROP , 2HRTROP , DELTA , 6HRTROP in the last 72 hours. Diagnostic testing reviewed by me: Medications were reviewed by me. Current Facility-Administered Medications: pantoprazole (PROTONIX) 40 mg in sodium chloride 0.9% 10 mL injection, 40 mg, IV, BID, Roger Sanchez PA empagliflozin (JARDIANCE) tablet 10 mg, 10 mg, Oral, daily EARLY, Eugenie Mederos FNP, 10 mg at 12/09/24 0536 [Held by Provider] heparin injection 5,000 Units, 5,000 Units, subCUT, every 8 hours, Jazmin Lema MD, 5,000 Units at 12/08/24 1300 zinc OXIDE-cod liver oil (DESITIN) 40 % topical paste, , Topical, BID, Jazmin Lema MD,Given at 12/09/24 1138 polyethylene glycol (MIRALAX) packet 17 Gram, 17 Gram, Oral, BID, Dustin Michel B, ANP, 17 Gram at 12/09/24 1123 cefTRIAXone (ROCEPHIN) 2,000 mg in sodium chloride 0.9% 50 mL IVPB (MBP), 2,000 mg, IV, every 24 hours (daily), Dustin Michel B, ANP, Stopped at 12/09/24 1150 midodrine (PROAMATINE) tablet 5 mg, 5 mg, Oral, every 8 hours PRN, Dustin Michel B, ANP, 5 mg at 12/09/24 0718 insulin glargine (LANTUS) injection 14 Units, 14 Units, subCUT, BID, Mina Michelin B, ANP, 14 Unitsat 12/09/24 1125 insulin lispro (HumaLOG,ADMELOG) injection 0-18 Units, 0-18 Units, subCUT, TID WITH meals, Mina Michelin B, ANP, 3 Units at 12/09/24 1126 insulin lispro (HumaLOG,ADMELOG) injection 0-9 Units, 0-9 Units, subCUT, daily BEDTIME, Mina Michelin B, ANP insulin lispro (HumaLOG,ADMELOG) injection 0-9 Units, 0-9 Units, subCUT, daily at 0200, Dustin Michel, ANP, 3 Units at 12/05/24 1353 prochlorperazine (COMPAZINE) injection 5 mg, 5 mg, IV, every 6 hours PRN, Mina Michelin B, ANP, 5 mg at 12/05/24 1031 atorvastatin (LIPITOR) tablet 20 mg, 20 mg, Oral, daily BEDTIME, Mina Michelin B, ANP, 20 mg at 12/08/24 2117 insulin lispro (HumaLOG,ADMELOG) injection 5 Units, 5 Units, subCUT, QID WITH meals and HS, Mina Michelin B, ANP, 5 Units at 12/09/24 1133 bisacodyL (DULCOLAX) rectal suppository 10 mg, 10 mg, Rectal, daily, Dustin Michel, ANP, 10 mg at12/09/24 1123 naloxone (NARCAN) 0.4 mg/mL injection 0.1-0.4 mg, 0.1-0.4 mg, IV, see admin instructions, Dustin Michel ANP tamsulosin (FLOMAX) SR 24 hour capsule 0.4 mg, 0.4 mg, Oral, daily AFTER supper, Dustin Michel ANP, 0.4 mg at 12/08/24 1730 acetaminophen (TYLENOL) tablet 650 mg, 650 mg, Oral, every 6 hours PRN, Dustin Michel ANP ondansetron (ZOFRAN) 4 mg/2 mL injection 4 mg, 4 mg, IV, every 6 hours PRN, Dustin Michel, ANP, 4mg at 12/08/24 0555 finasteride (PROSCAR) tablet 5 mg, 5 mg, Oral, daily, Dustin Michel ANP, 5 mg at 12/09/24 1119 hydrALAZINE (APRESOLINE) 20 mg/mL injection 10 mg, 10 mg, IV, every 4 hours PRN, Dustin Michel ANP dextrose 5 % - sodium chloride 0.9 % infusion, , IV, see admin instructions, Dustin Michel ANP dextrose 50% (D50) syringe 12.5 Gram, 12.5 Gram, IV, see admin instructions, Dustin Michel ANP dextrose 50% (D50) syringe 25 Gram, 25 Gram, IV, see admin instructions, Dustin Michel ANP glucagon HCL 1 mg/mL injection 1 mg, 1 mg, IM, see admin instructions, Dustin Michel ANP oxyCODONE-acetaminophen (PERCOCET) 5-325 mg per tablet 1 Tablet, 1 Tablet, Oral, every 4 hours PRN,Dustin Michel ANP, 1 Tablet at 12/08/24 1442 aluminum - magnesium - simethicone (MYLANTA) 200-200-20 mg/5 mL oral suspension 20 mL, 20 mL, Oral,ONE time only, Dustin Michel ANP sodium chloride flush injection 10 mL, 10 mL, IV, BID, Dustin Michel ANP, 10 mL at 12/09/24 1139 sodium chloride flush injection 10 mL, 10 mL, IV, see admin instructions, Dustin Michel ANP Primary discharge diagnosis: Severe sepsis with septic shock ([facility]/HCC) Other active medical issues also addressed during this admission: Active Hospital Problems Diagnosis Melena Acute blood loss anemia Ischemic dilated cardiomyopathy ([facility]/HCC) Acute cystitis Severe sepsis with septic shock ([facility]/HCC) ESRD (end stage renal disease) on dialysis ([facility]) Metabolic acidosis Elevated troponin level Chronic combined systolic and diastolic CHF (congestive heart failure) ([facility]/HCC) Dilated cardiomyopathy ([facility]/HCC) Thrombocytopenia CLL (chronic lymphocytic leukemia) ([facility]) Resolved Hospital Problems No resolved problems to display. ASSESSMENT AND PLAN: Hypotension on admission, resolved - Required Levophed in the ICU Suspected sepsis - Infectious workup has been negative so far. - Continue IV ceftriaxone-complete treatment for 5 days Elevated troponin/non-STEMI - Cardiology consulted. - Echocardiogram reviewed, appears stable. - S/p IV heparin for 48 hours. Cardiology has signed off. No ischemic workup planned for now End-stage renal disease on hemodialysis - Continue dialysis, nephrology following Leukocytosis, thrombocytopenia, anemia History of CLL - Now off IV heparin drip. - Oncology consulted. Continue to monitor CBC Melena with stool positive for occult blood - The patient has been on IV heparin for 48 hours. Now off heparin. - GI consulted. - Continue empiric IV Protonix. BPH: Continue finasteride, Flomax DVT prophylaxis: SCDs Code status: NO CPR (In Event of Cardiopulmonary Arrest) Anticipated Disposition Location: ? Home Timeframe: 12/10/2024 MDM complexity: [] Mild [x] Moderate [] High Jazmin Lema MD 12/09/2024, 2:46 PM * Guido Juarez, Physical Therapist - 12/08/2024 1:25 PM CDT [facility] - Therapy Services [address] Ph. Acute Physical Therapy Evaluation 12/08/2024 Room: [address] [place] [address] Name: Nisa Renae Age: 79 y.o. Date of : 1945 Insurance: Payor: [employer] / Plan: 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 Patient reports he was independent with ADLs and received assistance from his spouse with IADLs. Patient reports a history of falls: 2 Home Environment: 1-Story home Ramp Available Adaptive Equipment: Cane: single point cane Shower Chair Grab Bars Lift recliner Assistance available: Patient lives with his who is able to provide assistance PRN. Patient/Family Goals Statement: to return home. Pain: Refer to Doc Flowsheet for documented pain levels. Consent To Treatment Given By: Patient and Nurse Safety Awareness Orientation: Person, Place, Date, and Situation Command Following: good Safety Awareness: Good Precautions Patient Precautions: Bleeding Bracing/Orthotics: none Weight Bearing: No Restrictions Objective Information/Examination Muscle Tone: Normal Coordination: Normal Sensation: Intact to light touch ROM: Right LE: Active: WFL Left LE: Active: WFL Strength: Right LE: patient demonstrated adequate strength for functional tasks Left LE: patient demonstrated adequate strength for functional tasks Functional Mobility: Sit to stand: supervision for safety Gait Trainin feet with rolling walker. supervision for safety. Deficits affecting function/Deviations noted: decreased gait speed, no LOB or unsteadiness noted. Patient with limited ambulation at this time d/t fatigued from minimal sleep. Patient required verbal cues proper posture, to get center of gravity over GENET, and for assistive device placement with regards to feet/trunk Balance: Sitting: Normal Standing: supervision for static and dynamic tasks with use of 2WW Vitals Patient on room air Vital signs stable throughout session [facility] AM-PAC Basic Mobility How much help from another person does the patient currently need? Score 1. Turning from your back to your side while in a flat bed without using bedrails? 4 - None (independent) 2. Moving from lying on your back to sitting on the side of a flat bed without using bedrails? 4 - None (independent) 3. Moving to and from a bed to a chair (including a wheelchair)? 3 - A little (supervision to min assist) 4. Standing up from a chair using your arms (e.g., wheelchair, or bedside chair)? 3 - A little (supervision to min assist) 5. Walking in hospital room? 3 - A little (supervision to min assist) 6. Climbing 3-5 steps with a railing? 3 - A little (supervision to min assist) Total score 20/24 0-16 - indicates likely facility discharge 17-24 indicates likely community discharge * scores determined based on patient report, observation or professional expertise Assessment/Plan Nisa Renae is a 79 y.o. male is referred for physical therapy. Based on objective findings above,the patient presents with the following impairments: balance deficits, decreased strength, gait disturbance, and medical complexity which impacts functional mobility. Patient is currently functioning slightly below his prior level of function. Patient is safe to return home whenever medically appropriate. Patient has a front wheeled walker available at home and this is recommended for mobility at this time. Patient encouraged to continue ambulating 3-4 times daily throughout current admission with supervision from staff members. PT Evaluation: low complexity Recommendations Evaluation only, no further acute PT services needed (Completed order) Functional Prognosis: Based on prior level of function and deficits, anticipate good progress. Based on PT assessment of and/or progress with physical function, AM-PAC Basic Mobility score, and potential for improvement, anticipated discharge disposition once medically ready: Home with assistance (12/08/24 1325). Safety concerns if patient is without supervision/assistance. . * The final discharge location is determined through physician, case management, and patient/caregiver input along with insurance authorization of skilled services when appropriate Plan of care and/or discharge recommendations shared with: Patient, Fish Stringer Assembler, and Nurse PT Recommended DME: No new DME recommended (12/08/24 1325). Daily activity recommendations: Up with 1 assist, Ambulate to bathroom with staff, Up in chair for meals, and Ambulation with nursing three times daily Recommendations for referral to another service: none Education/Training Provided Education provided: basic time frames for healing, daily activity with nursing staff, discharge planning, functional mobility, home exercise program, plan of care, precautions during healing, proper body mechanics, rehabilitation principles, safety, and use of assistive device Exercise training provided: sitting: ankle pumps, hip flexion, and long arc quads (handout provided) Learner, method of education, and response to learning listed in Education tab in Epic. Disposition At start of session, patient found sitting in chair At end of session, patient left seated in chair, call light in reach, patient instructed to not getup without assistance from staff, and patient's daughter present in room Current Diagnoses/Past Medical History Pertinent diagnoses and past medical history related to this hospital stay are present in physicianH&P and physician daily notes. Prior to PT session a thorough chart review was completed including prior PT notes as applicable. Further treatment notes and therapeutic goals can be found in Care Plan Notes. If the patient discharges from the facility before another therapy visit, this shall serve as the therapy discharge summary. Thank you for this referral, Guido Juarez Physical Therapist * Jazmin Lema MD - 12/08/2024 12:08 PM CDT Images from the original note were not included. Your life is our life's work [facility] Hospitalist/Hospital Medicine Progress Note LOS: 4 days Room/Bed: 3254/02 Patient name: Nisa Renae Date of : 1945 HOSPITAL COURSE SUMMARY: Acutely ill 79-year-old male with a history of CLL, dilated cardiomyopathy with HFrEF and LVEF 20 to 25%, ESRD on HD, SSS with PPM presenting with shortness of breath, chest discomfort admitted to the ICU with shock, metabolic acidosis, sepsis, and elevated troponin. Hemodynamics stable and vasopressors remain off. NG tube placed for nausea, vomiting with symptom relief this morning. Continue bowel regimen. ABD x-ray without bowel obstruction. Cardiology consulted for significantly elevated troponin without signs of ACS. Suspect type II demand ischemia from septic shock. Echo shows LVEF of 26%, RV dysfunction, G2 DD, moderate TR, moderate MR which is similar to previous exams. No plan for ischemic workup at this time. Continue heparin drip x 48hr per cardiology recommendation. On ASA and statin. Monitor platelets. Becoming thrombocytopenic. Continue with ceftriaxone for severe sepsis and septic shock. UA was abnormal but urine culture without growth. Will plan for 5 days of empiric coverage. Took over patient's care today 12/07: Discussed with cardiology, okay to stop IV heparin after 48 hours. Oncology consulted due to leukocytosis and thrombocytopenia with history of CLL. Remains on IV Rocephin. 12/08: Cardiology signed off. Remains on IV antibiotics. Cultures remain negative. Consultants: IP CONSULT TO IV TEAM SUBJECTIVE: The patient is seen and examined at bedside in dialysis. He is feeling fairly well. No new complaints. OBJECTIVE: Temp (24hrs), Av.6 ??F (36.4 ??C), Min:97 ??F (36.1 ??C), Max:97.9 ??F (36.6 ??C) BP 120/50 Pulse 67 Temp 97.9 ??F (36.6 ??C) Resp 19 Ht 5' 11 (1.803 m) Wt 101.6 kg (224 lb) SpO2 96% BMI 31.24 kg/m?? Intake/Output Summary (Last 24 hours) at 12/08/2024 1308 Last data filed at 12/08/2024 0900 Gross per 24 hour Intake 818.82 ml Output 3 ml Net 815.82 ml Last documented weight: Weight: 101.6 kg (224 lb) (12/08/24 0344) EXAM: General: alert, in no distress Neurologic: Grossly normal HEENT: atraumatic, Normocephalic, without obvious abnormality Lungs: clear to auscultation bilaterally, normal respiratory effort Heart: normal rate, regular rhythm, normal S1, S2, no murmurs, rubs, clicks or gallops Abdomen: Soft, non-tender. Bowel sounds normal. No masses, no organomegaly. Extremities: intact distal pulses, moves all extremities equally, no edema, redness or tenderness in the calves or thighs Skin: negative LABORATORY: Recent Labs 12/06/24 0451 12/07/24 0658 12/08/24 0423 WBC 21.6* 30.4* 35.1* HGB 9.8* 8.3* 8.2* HCT 31.0* 26.2* 25.8* PLT 73* 67* 68* Recent Labs 12/06/24 0451 12/07/24 0658 12/08/24 0423 NA 133* 132* 136 K 5.2* 4.4 4.3 CL 94* 93* 98 CO2 20* 22 26 CA 8.7* 8.5* 8.8 BUN 75* 96* 54* CREAT 5.49* 6.58* 4.59* GLUCOSE 194* 114* 153* Recent Labs 12/06/24 0451 12/07/24 0658 12/08/24 0423 TOTALPROTEIN 5.6* 5.2* 5.4* ALBUMIN 3.4* 3.4* 3.5 BILITOTAL 0.6 0.6 0.4 ALKPHOS 73 69 85 AST 45 31 28 ALT 112* 88* 76* No results for input(s): INR , PT in the last 72 hours. Invalid input(s): PTT No results for input(s): BASETROP , 2HRTROP , DELTA , 6HRTROP in the last 72 hours. Diagnostic testing reviewed by me: Medications were reviewed by me. Current Facility-Administered Medications: [START ON 12/09/2024] empagliflozin (JARDIANCE) tablet 10 mg, 10 mg, Oral, daily EARLY, Eugenie Mederos FNP heparin injection 5,000 Units, 5,000 Units, subCUT, every 8 hours, Jazmin Lema MD, 5,000 Units at 12/08/24 1300 zinc OXIDE-cod liver oil (DESITIN) 40 % topical paste, , Topical, BID, Jazmin Lema MD,Given at 12/08/24 0942 polyethylene glycol (MIRALAX) packet 17 Gram, 17 Gram, Oral, BID, Dustin Michel ANP, 17 Gram at 12/08/24 0953 cefTRIAXone (ROCEPHIN) 2,000 mg in sodium chloride 0.9% 50 mL IVPB (MBP), 2,000 mg, IV, every 24 hours (daily), Dustin Michel ANP, Stopped at 12/08/24 1031 midodrine (PROAMATINE) tablet 5 mg, 5 mg, Oral, every 8 hours PRN, Dustin Michel, ANP, 5 mg at 12/06/24 1114 insulin glargine (LANTUS) injection 14 Units, 14 Units, subCUT, BID, Dustin Michel ANP, 14 Unitsat 12/08/24 0947 insulin lispro (HumaLOG,ADMELOG) injection 0-18 Units, 0-18 Units, subCUT, TID WITH meals, Dustin Michel, ANP, 6 Units at 12/08/24 1258 insulin lispro (HumaLOG,ADMELOG) injection 0-9 Units, 0-9 Units, subCUT, daily BEDTIME, Dustin Michel, ANP insulin lispro (HumaLOG,ADMELOG) injection 0-9 Units, 0-9 Units, subCUT, daily at 0200, Dustin Michel, ANP, 3 Units at 12/05/24 1353 prochlorperazine (COMPAZINE) injection 5 mg, 5 mg, IV, every 6 hours PRN, Dustin Michel, ANP, 5 mg at 12/05/24 1031 atorvastatin (LIPITOR) tablet 20 mg, 20 mg, Oral, daily BEDTIME, Dustin Michel, ANP, 20 mg at 12/07/24 2125 insulin lispro (HumaLOG,ADMELOG) injection 5 Units, 5 Units, subCUT, QID WITH meals and HS, Dustin Michel B, ANP, 5 Units at 12/08/24 1258 bisacodyL (DULCOLAX) rectal suppository 10 mg, 10 mg, Rectal, daily, Dustin Michel, ANP, 10 mg at12/08/24 0944 [DISCONTINUED] heparin in 0.45% NaCl 25,000 unit/250 mL infusion, 19.5 Units/kg/hr (Adjusted), IV, titrate, Jazmin Lema MD, Stopped at 12/07/24 1449 naloxone (NARCAN) 0.4 mg/mL injection 0.1-0.4 mg, 0.1-0.4 mg, IV, see admin instructions, Dustin Michel, ANP tamsulosin (FLOMAX) SR 24 hour capsule 0.4 mg, 0.4 mg, Oral, daily AFTER supper, Dustin Michel, ANP, 0.4 mg at 12/07/24 1716 acetaminophen (TYLENOL) tablet 650 mg, 650 mg, Oral, every 6 hours PRN, Dustin Michel B, ANP ondansetron (ZOFRAN) 4 mg/2 mL injection 4 mg, 4 mg, IV, every 6 hours PRN, Dustin Michel ANP, 4mg at 12/08/24 0555 finasteride (PROSCAR) tablet 5 mg, 5 mg, Oral, daily, Dustin Michel ANP, 5 mg at 12/08/24 0945 hydrALAZINE (APRESOLINE) 20 mg/mL injection 10 mg, 10 mg, IV, every 4 hours PRN, Dustin Michel ANP dextrose 5 % - sodium chloride 0.9 % infusion, , IV, see admin instructions, Dustin Michel ANP dextrose 50% (D50) syringe 12.5 Gram, 12.5 Gram, IV, see admin instructions, Dustin Michel ANP dextrose 50% (D50) syringe 25 Gram, 25 Gram, IV, see admin instructions, Dustin Michel ANP glucagon HCL 1 mg/mL injection 1 mg, 1 mg, IM, see admin instructions, Dustin Michel ANP oxyCODONE-acetaminophen (PERCOCET) 5-325 mg per tablet 1 Tablet, 1 Tablet, Oral, every 4 hours PRN,Dustin Michel ANP aluminum - magnesium - simethicone (MYLANTA) 200-200-20 mg/5 mL oral suspension 20 mL, 20 mL, Oral,ONE time only, Dustin Michel ANP sodium chloride flush injection 10 mL, 10 mL, IV, BID, Dustin Michel ANP, 10 mL at 12/08/24 0952 sodium chloride flush injection 10 mL, 10 mL, IV, see admin instructions, Dustin Michel ANP Primary discharge diagnosis: Severe sepsis with septic shock (CMS/HCC) Other active medical issues also addressed during this admission: Active Hospital Problems Diagnosis Ischemic dilated cardiomyopathy (CMS/HCC) Acute cystitis Severe sepsis with septic shock (CMS/HCC) ESRD (end stage renal disease) on dialysis (CMS/HCC) Metabolic acidosis Elevated troponin level Chronic combined systolic and diastolic CHF (congestive heart failure) (CMS/HCC) Dilated cardiomyopathy (CMS/HCC) Thrombocytopenia CLL (chronic lymphocytic leukemia) (CMS/HCC) Resolved Hospital Problems No resolved problems to display. ASSESSMENT AND PLAN: Hypotension on admission, resolved - Required Levophed in the ICU Suspected sepsis - Infectious workup has been negative so far. - Continue IV ceftriaxone Elevated troponin/non-STEMI - Cardiology consulted. - Echocardiogram reviewed, appears stable. - S/p IV heparin for 48 hours. Cardiology has signed off. No ischemic workup planned for now End-stage renal disease on hemodialysis - Continue dialysis, nephrology following Leukocytosis, thrombocytopenia, anemia History of CLL - Now off IV heparin drip. - Oncology consulted. Continue to monitor CBC BPH: Continue finasteride, Flomax DVT prophylaxis: SCDs Code status: NO CPR (In Event of Cardiopulmonary Arrest) Anticipated Disposition Location: ? Home Timeframe: 12/10/2024 MDM complexity: [] Mild [x] Moderate [] High Jazmin Lema MD 12/08/2024, 1:08 PM * Vida Ge, Occupational Therapist - 12/08/2024 9:58 AM CDT [facility] - Therapy Services 3K Ph. Acute Occupational Therapy Evaluation 12/08/2024 Room: [address] [place] [address] Name: Nisa Renae Age: 79 y.o. Patient Class: Inpatient Date of : 1945 Insurance: Payor: [employer] / Plan: [facility] OPTUM / Product Type: [place] / Prior to OT session thorough chart review completed, including prior OT notes as applicable. Consent to evaluate provided by patient and nurse Date of admission: 12/04/2024 SUBJECTIVE Occupational Profile Information provided by: patient and chart Prior Level of Function ADLs: independent IADLs: Pt reports his completes IADL tasks Patient does drive Functional mobility: modified independent using SPC Falls: 2 in the last 6 months Home Information Employment/daily routine: Pt enjoys watching [employer] Self-care assist available at home: Pt lives with his who is able to provide assistance PRN Home environment: 1-level home Ramp to enter Walk-in shower Durable medical equipment already in home: Canes: single point cane Shower chair Grab bars Lift recliner Additional Information Patient/family statement/goal(s): wants to go home Comments: Pt agreeable to participate in therapy. Pain: Refer to flowsheet for documentation of pain and interventions. 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 Occupational Performance Activities of Daily Living Feeding: NT; anticipate independent for [id number] excursion Grooming: NT; anticipate supervision standing at sink to wash face using WWR Upper extremity dressing: NT; anticipate supervision to don/doff gown around backside while seated EOB Lower extremity dressing: supervision to don/doff socks while seated EOB using figure four technique. Toileting: NT; anticipate supervision on toilet for clothing management and adequate posterior olvin-care Toilet transfer: supervision sit < > stand from EOB during simulated toilet transfer using WWR All tasks not tested with anticipated assist levels are based on observed tasks and movement patterns. Functional Mobility All mobility completed with gait belt, non-skid socks, and walker Bed mobility: independent supine < > sit EOB with HOB flattened using BUE support for scooting. Sit to stand: supervision from EOB using BUE support and WWR Functional ambulation: supervision x 50 feet using WWR Sitting balance: independent for static tasks and dynamic tasks using UE support and no LOB observed Standing balance: supervision for static tasks and dynamic tasks using WWR and no LOB observed. Patient required verbal cues for safety awareness while completing functional mobility and ADL tasks. [facility] AM-PAC Daily Activity How much help from another person does the patient currently need? Score 1. Putting on and taking off regular lower body clothing? 3 - A little (supervision to min assist) 2. Bathing (including washing, rinsing, drying)? 3 - A little (supervision to min assist) 3. Toileting, which includes using toilet, bedpan or urinal? 3 - A little (supervision to min assist) 4. Putting on and taking off regular upper body clothing? 3 - A little (supervision to min assist) 5. Taking care of personal grooming such as brushing teeth? 3 - A little (supervision to min assist) 6. Eating meals? 4 - None (independent) Total score 19/24 0-19 indicates likely facility discharge 19-24 indicates likely community discharge *Scores determined based on patient report, observation or professional expertise* Vitals Current O2 requirement: room air Vital signs stable throughout. Precautions Patient precautions: fall and bleeding Patient bracing: none Weight bearing: no restrictions ASSESSMENT & PLAN Evaluation Details Nisa Renae is a 79 y.o. male referred for OT following admission for severe sepsis with septic shock. Additional pertinent diagnoses and past medical history related to this hospital stay are present in physician H&P and physician daily notes. OT evaluation: Low complexity Assessment Patient is currently functioning near his prior level of function. Patient presents with acute functional deficits including: Decreased endurance These deficits impact patient ability to complete: Functional mobility Bathing Patient does not require acute OT to address these deficits patient verbalizes adequate support/resources upon discharge for acute functional deficits. Patient/family deny additional questions regarding ADLs and home safety. See discharge recommendations below Plan Evaluation only with no further acute OT services indicated (order completed) Recommendations Based on OT assessment of patient's ability to complete self care tasks, AM-PAC Daily Activity Score, functional cognition and safety awareness, potential for improvement, available home support, participation in therapeutic intervention, and tolerance for activity, anticipated discharge disposition, once medically ready: Home with assistance (12/08/24957). Rationale: Anticipate patient will return to functional baseline with continued medical management and daily mobility with nursing staff. * The final discharge location is determined through physician, case management, and patient/caregiver input along with insurance authorization of skilled services when appropriate. Plan of care and discharge recommendations shared with patient, critical care clinical nurse specialist, and PT OT recommended DME and AE upon discharge: No new DME recommended (12/08/24957) No new additional adaptive equipment necessary (12/08/24957) Education provided to patient regarding OT recommendations and plan of care, OT role in discharge planning, and safety awareness. Education response: verbalized understanding Nursing Staff Mobility Recommendations Recommended daily activity during admission: toileting in bathroom, up with supervision, and up to chair for meals using WWR Disposition At start of session, patient found lying in bed At end of session, patient left in bed, call light in reach, phone in reach, daughter present in room, and staff notified of patient location/events of session Further treatment notes and therapeutic goals can be found in Care Plan Notes. If the patient discharges from facility before another therapy visit, this shall serve as therapy discharge summary. Thank you for this referral, VIDA GE, Occupational Therapist * MederosAdityaah, ALL - 12/08/2024 7:52 AM CDT DAILY PROGRESS NOTE CARDIOLOGY 12/08/2024 Nisa Renae is a 79 y.o. male SUBJECTIVE: Patient denies any exertional or resting chest pain. He is resting in bed. Daughter at the bedside. OBJECTIVE: BP 95/52 Pulse 66 Temp 97.7 ??F (36.5 ??C) (Temporal) Resp 18 Ht 5' 11 (1.803 m) Wt 101.6 kg (224 lb) SpO2 98% BMI 31.24 kg/m?? He appears well, in no apparent distress. Alert and oriented times three. Vital signs stable as documented in vital signs section. Neck: No JVD Heart: RR&R S1 and S2 normal, no murmur, gallops or rub. Lungs: Chest is clear; no wheezes or rales, No edema or JVD. Abd: Bowel sounds present, soft, non-tender. Ext: No edema, pulses palpable. Lab Results Component Value Date WBC 35.1 (H) 12/08/2024 HGB 8.2 (L) 12/08/2024 HGBPOC 10.1 (L) 03/29/2024 HCT 25.8 (L) 12/08/2024 HCTPOC 30 (L) 03/29/2024 PLT 68 (L) 12/08/2024 MCV 98.9 12/08/2024 Lab Results Component Value Date NA 136 12/08/2024 K 4.3 12/08/2024 CL 98 12/08/2024 CO2 26 12/08/2024 CA 8.8 12/08/2024 BUN 54 (H) 12/08/2024 CREAT 4.59 (H) 12/08/2024 GLUCOSE 153 (H) 12/08/2024 ANIONGAP 12 12/08/2024 HISTORY: Nisa Renae is a 79 y.o. male (1945) who is a patient of Dr. 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 He was transferred here from [place] because of weakness with hypotension there is concern for sepsis he was admitted to ICU started on Levophed white cells were noted to be 12 which is unusual for him given that he has CLL white cells high as 83 recently. He had not been complaining of any chest pain troponins were noted to be 4417, 4870, 3956, 4726, 3843. Potassium was 6.4 creatinine 4.45 on admission Patient had a nuclear stress test 09/15/2024 which showed normal perfusion with evidence of prior arch area of infarction involving the apical and mid inferior segments, LVEF was 34%. Echocardiogram done 12/04/2024 showed LVEF 25 to 30% no significant change compared to prior. EKG shows ventricular paced rhythm, possible underlying sinus with complete heart block. He is being treated for acute cystitis with septic shock in ICU. He denies any chest pain with exertion recently but does complain of some fatigue and did report some mild chest pressure a day ago which was short-lived. He has not needed to be on vasopressors here blood pressures have been on the higher side and tolerated dialysis well. Family was reported patient was feeling cool but reported that he was having fever inside. Assessment: Principal Problem: Severe sepsis with septic shock (CMS/HCC) Active Problems: Dilated cardiomyopathy (CMS/HCC) CLL (chronic lymphocytic leukemia) (CMS/HCC) Thrombocytopenia Acute cystitis ESRD (end stage renal disease) on dialysis (CMS/HCC) Metabolic acidosis Elevated troponin level Chronic combined systolic and diastolic CHF (congestive heart failure) (CMS/HCC) Ischemic dilated cardiomyopathy (CMS/HCC) Plan: 1. Hemodynamically stable, no IV pressors 2. Troponin elevation felt to be non MA related, demand related. 3. Dilated cardiomyopathy, chronic CHF: appears compensated. GDMT difficult d/t hypotension and bradycardia, spoke with Dr. West, nephrology and she is agreeable with starting Jardiance 10 mg daily. Heart Failure: Reduced Ejection Fraction (HFrEF) and Improved Ejection Fraction (HFimpEF) Guideline-directed medications (SOR): Current: Notes/plan: Evidence-based beta-ricardo (1) carvediloL (COREG) 3.125 mg tablet [[id number]], carvediloL (COREG)6.25 mg tablet [[id number]] ARNi, Acei or ARB (1) eGFR less than 30 Mineralocorticoid Receptor Antagonist (1) eGFR less than 30 SGLT2i (1) empagliflozin (JARDIANCE) tablet 10 mg [[id number]] Hydralazine & nitrate (1 in -Americans) hydrALAZINE (APRESOLINE) 20 mg/mL injection 10 mg [[id number]], isosorbide mononitrate (IMDUR) 120 mg Extended Release 24 hour tablet [[id number]] Diuretics as needed (1) furosemide (LASIX) 40 mg tablet [[id number]] Advance care planning & code status @CODESTATUS@ Date of Last ACP: none Cardiology will sign off. Please call with questions Plan made in collaboration with Dr. Sweeney. ALL Antoine 12/08/2024 7:53 AM Cosigned by Warren Sweeney MD at 12/12/2024 4:10 PM CDT * Jazmin Lema MD - 12/07/2024 1:20 PM CDT Images from the original note were not included. Your life is our life's work [facility] Hospitalist/Hospital Medicine Progress Note LOS: 3 days Room/Bed: 3254/02 Patient name: Nisa Renae Date of : 1945 HOSPITAL COURSE SUMMARY: Acutely ill 79-year-old male with a history of CLL, dilated cardiomyopathy with HFrEF and LVEF 20 to 25%, ESRD on HD, SSS with PPM presenting with shortness of breath, chest discomfort admitted to the ICU with shock, metabolic acidosis, sepsis, and elevated troponin. Hemodynamics stable and vasopressors remain off. NG tube placed for nausea, vomiting with symptom relief this morning. Continue bowel regimen. ABD x-ray without bowel obstruction. Cardiology consulted for significantly elevated troponin without signs of ACS. Suspect type II demand ischemia from septic shock. Echo shows LVEF of 26%, RV dysfunction, G2 DD, moderate TR, moderate MR which is similar to previous exams. No plan for ischemic workup at this time. Continue heparin drip x 48hr per cardiology recommendation. On ASA and statin. Monitor platelets. Becoming thrombocytopenic. Continue with ceftriaxone for severe sepsis and septic shock. UA was abnormal but urine culture without growth. Will plan for 5 days of empiric coverage. Took over patient's care today 12/07: Discussed with cardiology, okay to stop IV heparin after 48 hours. Oncology consulted due to leukocytosis and thrombocytopenia with history of CLL. Remains on IV Rocephin. Consultants: IP CONSULT TO IV TEAM SUBJECTIVE: The patient is seen and examined at bedside in dialysis. He is feeling fairly well. No new complaints. OBJECTIVE: Temp (24hrs), Av.4 ??F (36.3 ??C), Min:96.7 ??F (35.9 ??C), Max:98.2 ??F (36.8 ??C) BP (!) 100/37 (BP Location: Left arm, Patient Position (BP): Supine) Pulse 65 Temp 97 ??F (36.1??C) (Oral) Resp 14 Ht 5' 11 (1.803 m) Wt 100.7 kg (222 lb) SpO2 94% BMI 30.96 kg/m?? Intake/Output Summary (Last 24 hours) at 12/07/2024 1620 Last data filed at 12/07/2024 1053 Gross per 24 hour Intake 300 ml Output 2300 ml Net -2000 ml Last documented weight: Weight: 100.7 kg (222 lb) (12/07/24 0653) EXAM: General: alert, in no distress Neurologic: Grossly normal HEENT: atraumatic, Normocephalic, without obvious abnormality Lungs: clear to auscultation bilaterally, normal respiratory effort Heart: normal rate, regular rhythm, normal S1, S2, no murmurs, rubs, clicks or gallops Abdomen: Soft, non-tender. Bowel sounds normal. No masses, no organomegaly. Extremities: intact distal pulses, moves all extremities equally, no edema, redness or tenderness in the calves or thighs Skin: negative LABORATORY: Recent Labs 12/04/24 2111 12/05/24 0327 12/06/24 0451 12/07/24 0658 WBC 22.6* 22.8* 21.6* 30.4* HGB 10.6* 10.5* 9.8* 8.3* HCT 34.3* 32.8* 31.0* 26.2* PLT 97* 98* 73* 67* Recent Labs 12/04/24194012/05/2432612/06/24 04512/07/24 0658 NA 133* 134* 133* 132* K 4.9 5.3* 5.2* 4.4 CL 94* 96* 94* 93* CO2 23 22 20* 22 CA 9.7 9.5 8.7* 8.5* BUN 33* 45* 75* 96* CREAT 3.35* 3.93* 5.49* 6.58* GLUCOSE 348* 291* 194* 114* Recent Labs 12/04/24 19412/05/24 0854 12/06/24 0451 12/07/24 0658 TOTALPROTEIN 6.3* 6.0* 5.6* 5.2* ALBUMIN 4.0 3.8 3.4* 3.4* BILITOTAL 1.2* 0.8 0.6 0.6 ALKPHOS 84 76 73 69 AST 112* 60* 45 31 ALT 130* 120* 112* 88* No results for input(s): INR , PT in the last 72 hours. Invalid input(s): PTT No results for input(s): BASETROP , 2HRTROP , DELTA , 6HRTROP in the last 72 hours. Diagnostic testing reviewed by me: Medications were reviewed by me. Current Facility-Administered Medications: [COMPLETED] heparin injection 1,300 Units, 15 Units/kg (Adjusted), IV, ONE time only, Jazmin Lema MD, 1,300 Units at 12/07/24 0117 [COMPLETED] sodium chloride 0.9 % bolus solution 1,000 mL, 1,000 mL, See Admin Instructions, ONE time only, Michaela Maldonado, TUMBLING MACHINE OPERATOR, Stopped at 12/07/24 0716 heparin injection 5,000 Units, 5,000 Units, subCUT, every 8 hours, Jazmin Lema MD polyethylene glycol (MIRALAX) packet 17 Gram, 17 Gram, Oral, BID, Dustin Michel, ANP, 17 Gram at 12/07/24 1158 cefTRIAXone (ROCEPHIN) 2,000 mg in sodium chloride 0.9% 50 mL IVPB (MBP), 2,000 mg, IV, every 24 hours (daily), Dustin Michel B, ANP, Stopped at 12/07/24 1227 midodrine (PROAMATINE) tablet 5 mg, 5 mg, Oral, every 8 hours PRN, Mina Michelin B, ANP, 5 mg at 12/06/24 1114 insulin glargine (LANTUS) injection 14 Units, 14 Units, subCUT, BID, Mina Michelin B, ANP, 14 Unitsat 12/07/24 0900 insulin lispro (HumaLOG,ADMELOG) injection 0-18 Units, 0-18 Units, subCUT, TID WITH meals, Mina Michelin B, ANP, 3 Units at 12/07/24 1159 insulin lispro (HumaLOG,ADMELOG) injection 0-9 Units, 0-9 Units, subCUT, daily BEDTIME, Marilu Dustin B, ANP insulin lispro (HumaLOG,ADMELOG) injection 0-9 Units, 0-9 Units, subCUT, daily at 0200, Mina Michelin B, ANP, 3 Units at 12/05/24 1353 prochlorperazine (COMPAZINE) injection 5 mg, 5 mg, IV, every 6 hours PRN, Mina Michelin B, ANP, 5 mg at 12/05/24 1031 atorvastatin (LIPITOR) tablet 20 mg, 20 mg, Oral, daily BEDTIME, Mina Michelin B, ANP, 20 mg at 12/06/24 2153 insulin lispro (HumaLOG,ADMELOG) injection 5 Units, 5 Units, subCUT, QID WITH meals and HS, Mina Michelin B, ANP, 5 Units at 12/07/24 1200 bisacodyL (DULCOLAX) rectal suppository 10 mg, 10 mg, Rectal, daily, Dustin Michel ANP, 10 mg at12/07/24 1157 [DISCONTINUED] heparin in 0.45% NaCl 25,000 unit/250 mL infusion, 19.5 Units/kg/hr (Adjusted), IV, titrate, Jazmin Lema MD, Stopped at 12/07/24 1449 naloxone (NARCAN) 0.4 mg/mL injection 0.1-0.4 mg, 0.1-0.4 mg, IV, see admin instructions, Dustin Michel ANP tamsulosin (FLOMAX) SR 24 hour capsule 0.4 mg, 0.4 mg, Oral, daily AFTER supper, Dustin Michel, ANP, 0.4 mg at 12/06/24 1803 acetaminophen (TYLENOL) tablet 650 mg, 650 mg, Oral, every 6 hours PRN, Dustin Michel ANP ondansetron (ZOFRAN) 4 mg/2 mL injection 4 mg, 4 mg, IV, every 6 hours PRN, Dustin Michel, ANP, 4mg at 12/05/24 0609 finasteride (PROSCAR) tablet 5 mg, 5 mg, Oral, daily, Dustin Michel, ANP, 5 mg at 12/07/24 1158 hydrALAZINE (APRESOLINE) 20 mg/mL injection 10 mg, 10 mg, IV, every 4 hours PRN, Dustin Michel ANP dextrose 5 % - sodium chloride 0.9 % infusion, , IV, see admin instructions, Dustin Michel ANP dextrose 50% (D50) syringe 12.5 Gram, 12.5 Gram, IV, see admin instructions, Dustin Michel ANP dextrose 50% (D50) syringe 25 Gram, 25 Gram, IV, see admin instructions, Dustin Michel, HERMINIA glucagon HCL 1 mg/mL injection 1 mg, 1 mg, IM, see admin instructions, Dustin Michel, ANP oxyCODONE-acetaminophen (PERCOCET) 5-325 mg per tablet 1 Tablet, 1 Tablet, Oral, every 4 hours PRN,Dustin Michel ANP aluminum - magnesium - simethicone (MYLANTA) 200-200-20 mg/5 mL oral suspension 20 mL, 20 mL, Oral,ONE time only, Dustin Michel ANP sodium chloride flush injection 10 mL, 10 mL, IV, BID, Dustin Michel ANP, 10 mL at 12/07/24 1158 sodium chloride flush injection 10 mL, 10 mL, IV, see admin instructions, Dustin Michel ANP [DISCONTINUED] replacement reminder - Potassium, 1 Each, See Admin Instructions, see admin instructions, Tigist Dodson PA [DISCONTINUED] replacement reminder-Magnesium, 1 Each, See Admin Instructions, see admin instructions, Tigist Dodson PA [DISCONTINUED] replacement reminder - Phosphorus, 1 Each, See Admin Instructions, see admin instructions, Tigist Dodson PA [DISCONTINUED] replacement reminder-Calcium, 1 Each, See Admin Instructions, see admin instructions, Tigist Dodson PA Primary discharge diagnosis: Severe sepsis with septic shock ([facility]/HCC) Other active medical issues also addressed during this admission: Active Hospital Problems Diagnosis Ischemic dilated cardiomyopathy ([facility]/HCC) Acute cystitis Severe sepsis with septic shock ([facility]/HCC) ESRD (end stage renal disease) on dialysis ([facility]/HCC) Metabolic acidosis Elevated troponin level Chronic combined systolic and diastolic CHF (congestive heart failure) ([facility]/HCC) Dilated cardiomyopathy ([facility]/HCC) Thrombocytopenia CLL (chronic lymphocytic leukemia) ([facility]) Resolved Hospital Problems No resolved problems to display. ASSESSMENT AND PLAN: Hypotension on admission, resolved - Required Levophed in the ICU Suspected sepsis - Infectious workup has been negative so far. - Continue IV ceftriaxone Elevated troponin/non-STEMI - Cardiology consulted. - Echocardiogram reviewed, appears stable. - S/p IV heparin for 48 hours. Cardiology following. No ischemic workup planned for now End-stage renal disease on hemodialysis - Continue dialysis, nephrology following Leukocytosis, thrombocytopenia History of CLL - Now off IV heparin drip. - Oncology consulted. Continue to monitor CBC BPH: Continue finasteride, Flomax DVT prophylaxis: SCDs Code status: NO CPR (In Event of Cardiopulmonary Arrest) Anticipated Disposition Location: ? Home Timeframe: 12/09/2024 MDM complexity: [] Mild [x] Moderate [] High Jazmin Lema MD 12/07/2024, 4:20 PM * Vida Ge, Occupational Therapist - 12/07/2024 9:03 AM CDT Attempted to see patient for OT evaluation. Patient unavailable for therapy session due to being off the floor for hemodialysis. Will continue with attempts for evaluation/established plan of care. Thank you, VIDA GE, Occupational Therapist * Guido Juarez Physical Therapist - 12/07/2024 9:03 AM CDT Attempted to see patient for PT evaluation. Patient unavailable for therapy session due to being off the floor for hemodialysis. Will continue with attempts for evaluation/established plan of care. Thank you, Guido Juarez Physical Therapist * Warren Sweeney MD - 12/06/2024 6:08 PM CDT Cardiology Progress Note Subjective: Pt seen 7:00 am, sitting up in chair, having bkfst. Has NG He denies chest pain, orthopnea, shortness of breath/dyspnea. Stable bp. Current medication list reviewed 12/06/2024 PHYSICAL EXAM: BP 135/50 Pulse 65 Temp 97.6 ??F (36.4 ??C) (Axillary) Resp 18 Ht 5' 11 (1.803 m) Wt 102.6 kg (226 lb 3.2 oz) SpO2 97% BMI 31.55 kg/m?? Gen: No distress. Neuro: Awake, alert, oriented. Cv: RRR. No murmur, no gallop. Pulm: Clear bilaterally Abd: Soft, non tender, BS present. Skin: Warm. No rash Ext: no edema. No cyanosis Cardiac monitoring: V-paced Data Review: CBC: Recent Labs 12/04/24 0333 12/04/24 2111 12/05/24 0327 12/06/24 0451 WBC 12.7* 22.6* 22.8* 21.6* HGB 11.0* 10.6* 10.5* 9.8* PLT 78* 97* 98* 73* MCV 105.5* 101.2 98.8 99.4 BMP: Recent Labs 12/04/24 0157 12/04/24 1941 12/05/24 0327 12/06/24 0451 GLUCOSE 261* 348* 291* 194* BUN 44* 33* 45* 75* CREAT 4.52* 3.35* 3.93* 5.49* NA 135* 133* 134* 133* K 6.4* 4.9 5.3* 5.2* Assessment: Principal Problem: Severe sepsis with septic shock (CMS/HCC) Active Problems: Dilated cardiomyopathy (CMS/HCC) CLL (chronic lymphocytic leukemia) (CMS/HCC) Thrombocytopenia Acute cystitis ESRD (end stage renal disease) on dialysis (CMS/HCC) Metabolic acidosis Elevated troponin level Chronic combined systolic and diastolic CHF (congestive heart failure) (CMS/HCC) Ischemic dilated cardiomyopathy (CMS/HCC) Plan: 1. Hemodynamically stable, no IV pressors 2. Troponin elevation felt to be non MA related, demand related. 3. Dilated cardiomyopathy, chronic CHF: appears compensated. Warren Sweeney MD [facility] * Dustin Michel ANP - 12/06/2024 2:42 PM CDT [facility] Patient Handoff Notification: Patient handoff given to Dr. Keshav Lema Cosigned by Valencia Singh MD at 12/06/2024 5:12 PM CDT * Sofía Lewis RD - 12/06/2024 1:41 PM CDT Reason For Nutrition Assessment: Previous Malnutrition Dx, Nutrition Diagnosis Malnutrition Nutrition Diagnosis: (at risk) (12/06/24 1300) Problem: Inadequate protein-energy intake (12/06/241299) Etiology: Inadequate protein, energy, nutrient intake;Acute illness;Decreased appetite (12/06/241299) Signs/Symptoms: Intake history/diet recall (12/06/241299) Interventions/Recommendations: Encourage adequate PO intake Add Nepro BID Monitor weights Nutrition Interventions: Encourage adequate intake;Encourage fluids;Monitor weight trends;Oral nutrition supplement (12/06/241299) Goals: 75-100% of meals, Consume ordered supplements daily, No N/V, and Stable weight Monitoring/Evaluation: PO intake and tolerance, stool output, weight, labs, and skin integrity Nutrition Discharge Plan: Likely continue Renal dialysis diet at discharge See below for full assessment Assessment 79 y.o.male admitted with Severe sepsis with septic shock (CMS/HCC). PMH includes CLL, dilated cardiomyopathy with HFrEF and LVEF 20 to 25%, ESRD on HD, SSS with PPM. Subjective: Pt is with poor PO intake this admission with nausea and vomiting, no bowel obstructionfound from KUB. Will trial ONS and continue to monitor PO intake. Would continue antiemetics as needed. Pt is at risk for malnutrition due to current poor PO intake. Food and Nutrition Related History: Pt currently with poor appetite and has had N/V recently Weight changes: no significant wt loss Subjective Global Assessment: Weight: During the past 2 weeks the patient's weight has: Not Changed (12/06/241299) Food Intake: Compared to normal intake, over the past month the patient's intake has been: Less than usual (12/06/241299) Less than usual: Normal food but less than normal amounts (12/06/241299) Symptoms: Patient reports the following problems that have kept them from eating enough during the past 2 weeks: Fatigue (12/06/241299) Activities & Function: Over the past month the patient generally rates their activity as: : Very low energy, spend most of the day in bed or chair (12/06/241299) Total score = SGA Score : 6 (12/06/241299) Nutrition Focused Exam Physical Findings- Summary: Malnutrition Nutrition Diagnosis: (at risk) (12/06/241299) Orbital: Slightly bulged fat pads (no findings) (12/06/241299) Facial cheeks (buccal pads): Full, round, filled out (no findings) (12/06/241299) Biceps and triceps: Ample or thick fold of fat tissue between fingers (no findings) (12/06/241299) Ribs - lower back, mid axillary line: Chest is full, round, ribs do not show (no findings) (12/06/241299) Subcutaneous Fat Loss Assessment: No findings (12/06/241299) Temporal: See/feel well defined muscles (no findings) (12/06/241299) Clavicle: May be visible but not prominent (no findings) (12/06/241299) Shoulder (deltoid muscle): Rounded, curved at junction between neck and shoulder, and at shoulder joint. Able to grasp muscle tissue at shoulder joint (no findings) (12/06/241299) Scapula: Unable to assess (12/06/241299) Interosseous: Muscle bulges (no findings) (12/06/241299) Thigh (quadriceps muscle): Not able to reduce. Well rounded, no depressions (no findings) () Knee: Muscle protrudes, bone not prominent (no findings) (12/06/241299) Calf (gastrocnemius muscle): 'Bulb' shape, firm and well developed (no findings) (12/06/241299) Muscle Wasting Assessment: No findings (12/06/241299) Edema: Normal contour with a barely perceptible pit (no findings) (12/06/241299) Hand Executive Pastry Chef: Unable to assess (12/06/241299) Percentage of Energy: Other (see comments) (meeting <50% estimated needs at least 3 days) (12/06/241299) Percentage of Weight Loss: No history of significant wt loss (12/06/241299) Estimated Needs: Estimated Energy Target: 1423-0135 (12/06/241299) Estimated Protein Target: 85-100 (12/06/241299) Estimated Fluid Target : 4834-0309 (12/06/241299) Nutrition Energy Formula: Calories per kilogram (12/06/241299) Weight Used for Formula: Adjusted body weight (84kg) (12/06/241299) Clinical Data: Height: 5' 11 (180.3 cm) (12/04/24 0100) [place] body weight: 75.3 kg (166 lb 0.1 oz) Adjusted ideal body weight: 86.2 kg (190 lb 1.3 oz) Body mass index is 31.55 kg/m??. Admission:Weight: 105.2 kg (231 lb 14.4 oz) (12/04/24 0100) Weight Method: Actual (12/04/24 010) Current:Weight: 102.6 kg (226 lb 3.2 oz) (12/06/24 0300) Wt Readings from Last 8 Encounters: 12/06/24 102.6 kg (226 lb 3.2 oz) 11/29/24 104.9 kg (231 lb 3.2 oz) 11/12/24 104.8 kg (231 lb) 10/25/24 104.3 kg (230 lb) 07/21/24 103.8 kg (228 lb 12.8 oz) 06/09/24 106.1 kg (234 lb) 04/06/24 102.6 kg (226 lb 3.1 oz) 01/30/21 102.6 kg (226 lb 3.2 oz) Labs Recent Labs 12/04/24 0157 12/04/24 1941 12/05/24 0327 12/05/24 0854 12/06/24 0451 GLUCOSE 261* 348* 291* -- 194* BUN 44* 33* 45* -- 75* CREAT 4.52* 3.35* 3.93* -- 5.49* GFR 12 18 15 -- 10 NA 135* 133* 134* -- 133* K 6.4* 4.9 5.3* -- 5.2* CO2 14* 23 22 -- 20* ANIONGAP 25* 16 16 -- 19 CA 9.2 9.7 9.5 -- 8.7* ALBUMIN -- 4.0 -- 3.8 3.4* ALKPHOS -- 84 -- 76 73 ALT -- 130* -- 120* 112* AST -- 112* -- 60* 45 BILITOTAL -- 1.2* -- 0.8 0.6 LIPASE -- -- -- -- 14 Lab Results Component Value Date/Time PO4 4.7 (H) 04/06/2024 01:09 AM HGBA1C 7.1 (H) 03/29/2024 01:24 AM MG 1.6 02/01/2021 06:05 AM Current Diet and Intake: DIET RENAL Food/Meal: Breakfast (12/06/24 0800),Intake (%): (!) 20% (12/06/24 0800) , Skin: Mahamed Score: 20 (12/06/24 0730) Gastrointestinal: Last Bowel Movement (mm/dd/yyyy): (ACQUISITION SPECIALIST) (12/06/24 0730) Allergies: Allergies Allergen Reactions Febuxostat Hives Allopurinol Unknown Iodinated Contrast Media Unknown Iodine Unknown and Other (See Comments) rr Levofloxacin Unknown Metformin Unknown Quetiapine Hallucination 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 male admitted 12/04/2024 with shortness of breath. [facility] after calling EMS for shortness of breath. EMS reports they could not obtain pulse ox values so they placed him on an NRB. He denied chest pain. He had also called EMS the night prior due to a fall and they performed lift assist but he refused transport to the hospital at that time. On 12/03, the patient woke with weakness in his B/L Les, upper extremities,and was short of breath. He does have ESRD on HD TTS schedule and has an indwelling HD catheter in the right chest. He tells me that he feels ill after any procedures or especially injections due to his CLL. He had permanent HD access AV graft placed in the right upper arm on Friday and states thathe began to experience diarrhea and nausea with vomiting at that time. He has not felt well since. He states he has had some chest discomfort across the middle of his chest today that he thought was due to building excess fluid as he has not been able to urinate and typically can. He was noted to be hypotensive on arrival and was worked up for sepsis with blood cultures drawn and empiric abx given. He did not receive fluids due to fluid overload. His RPP was negative and his CXR showed signs of perihilar edema vs pneumonitis. His labs were remarkable for leukocytosis of 22k, thrombocytopenia 85k, abg with metabolic acidosis - pH 7.23 with base deficit 15. His LA was elevated at 13. His baseline troponin was elevated at 4791.His EKG was unremarkable. His BNP was elevated at 52k. His CT head and CT cervical spine were unremarkable. He received a dose of lasix as well as a dose of 125mg solu medrol. He remained hypotensive on levophed and receives his care at [facility] so he was transported to the [facility] ICU for further management. His PMH is remarkable for hypertension, T2DM, dyslipidemia, ESRD on HD TTS, anemia, BPH, ASHD s/p CABG, s/p PPM placement, and CLL. 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 Hemodynamics stable and vasopressors remain off. NG tube placed for nausea, vomiting with symptom relief this morning. Continue bowel regimen. ABD x-ray without bowel obstruction. Cardiology consulted for significantly elevated troponin without signs of ACS. Suspect type II demand ischemia from septic shock. Echo shows LVEF of 26%, RV dysfunction, G2 DD, moderate TR, moderate MR which is similar to previous exams. No plan for ischemic workup at this time. Continue heparin drip x 48hr per cardiology recommendation. On ASA and statin. Monitor platelets. Becoming thrombocytopenic. Continue with ceftriaxone for severe sepsis and septic shock. UA was abnormal but urine culture without growth. Will plan for 5 days of empiric coverage. ICU timeline: Major active problem list: Principal Problem: Severe sepsis with septic shock (CMS/HCC) Active Problems: CLL (chronic lymphocytic leukemia) (CMS/HCC) Thrombocytopenia Dilated cardiomyopathy (CMS/HCC) Acute cystitis ESRD (end stage renal disease) on dialysis (CMS/HCC) Metabolic acidosis Elevated troponin level Chronic combined systolic and diastolic CHF (congestive heart failure) (CMS/HCC) Ischemic dilated cardiomyopathy (CMS/HCC) Subjective: 24 hour events - NGT Objective: Current vital signs Blood pressure (!) 152/57, pulse 64, temperature 97.1 ??F (36.2 ??C), temperature source Axillary, resp. rate 21, height 5' 11 (1.803 m), weight 102.6 kg (226 lb 3.2 oz), SpO2 100%. 24 hour BP and temperature range BP: (76-158)/(18-102) Temp (24hrs), Av.8 ??F (36.6 ??C), Min:97.1 ??F (36.2 ??C), Max:98.2 ??F (36.8 ??C) Input/Output 12/040 - 12/06 0659 In: 515.3 [I.V.:485.3] Out: 400 [Urine:200; Drains:200] PHYSICAL EXAM: Gen: 79-yo male lying in bed in [facility] Neuro: A&O X 3, no focal deficits HEENT: AT/NC, PERRL, dry MM Cardiac: RRR, no murmur Pulm: CTA B/L, unlabored,on RA Abdomen: soft, nontender, +BS Skin: cool, dry, and intact Extremities: pedal pulses palpable B/L, no edema Data Review: BMP: Recent Labs 12/04/24 1941 12/05/24 0327 12/06/24 0451 GLUCOSE 348* 291* 194* BUN 33* 45* 75* CREAT 3.35* 3.93* 5.49* NA 133* 134* 133* K 4.9 5.3* 5.2* CL 94* 96* 94* CO2 23 22 20* ANIONGAP 16 16 19 estimated creatinine clearance is 13.1 mL/min (A) (by C-G formula based on SCr of 5.49 mg/dL (H)). LFTs: Recent Labs 12/04/24 1941 12/05/24 0854 12/06/24 0451 ALKPHOS 84 76 73 ALT 130* 120* 112* AST 112* 60* 45 BILITOTAL 1.2* 0.8 0.6 ALBUMIN 4.0 3.8 3.4* CBC: Recent Labs 12/04/24 2111 12/05/24 0327 12/06/24 0451 WBC 22.6* 22.8* 21.6* HGB 10.6* 10.5* 9.8* HCT 34.3* 32.8* 31.0* PLT 97* 98* 73* MCV 101.2 98.8 99.4 Coagulation: No results for input(s): PT , INR , APTT in the last 72 hours. ABG: Lab Results Component Value Date/Time SPECIMENSOU Arterial 03/29/2024 01:39 AM SPECIMENSOU Arterial 03/29/2024 01:39 AM PHBLOODPOC 7.36 03/29/2024 01:39 AM [id number] 37 03/29/2024 01:39 AM PO2POC 72 (L) 03/29/2024 01:39 AM [id number] 21 (L) 03/29/2024 01:39 AM [id number] 97 03/29/2024 01:39 AM [id number] 22 (L) 03/29/2024 01:39 AM BEPOC -5 (L) 03/29/2024 01:39 AM LACTATE 2.4 (H) 12/05/2024 04:52 PM PATIENTTEMP 37.0 03/29/2024 01:39 AM PHTEMPCORR 7.36 03/29/2024 01:39 AM [id number] 37 03/29/2024 01:39 AM [id number] 72 (L) 03/29/2024 01:39 AM Lactic acid: Lab Results Component Value Date/Time LACTATE 2.4 (H) 12/05/2024 04:52 PM LACTATE 3.2 (H) 12/04/2024 07:41 PM LACTATE 1.6 03/29/2024 01:39 AM Radiology: Reviewed Assessment and Plan Neuro/Psych: No acute concerns, he is neurologically intact. Cardiovascular/Fluids: He is hemodynamically stable without vasopressors Hypotension, no longer requiring Levophed Hyperlipidemia: Resume ACQUISITION SPECIALIST Lipitor. CHF: Most recent EF in August was 20 to 25%, on Lasix twice daily and will hold for now, monitor andassess for resumption. NSTEMI, elevated troponin/BNP, cardiology consulted. No plan for ischemic workup at this time. Suspect type II demand ischemia. Pulmonary: No acute concerns, he is saturating well on room air. GI/NUT: Renal diet SUP, not indicated Renal/LYTES/Acid-Base: ESRD on HD: We will consult nephrology in the morning to resume regular HD sessions. BPH: Resume ACQUISITION SPECIALIST tamsulosin and Proscar. Infectious Disease: Infectious workup negative thus far. De-escalate to ceftriaxone x 5 days for empiric coverage of severe sepsis and septic shock Hem/Onc/Coag: Leukocytosis: Possible stress response versus sepsis, trend. Thrombocytopenia: Appears chronic but trending down. Monitor closely. On heparin and aspirin History of CLL DVTp, heparin drip Endocrine: T2DM: MDSSI, monitor BG to maintain between 120 and 180. Musculoskeletal/Skin: Routine skin care per nursing. Family communication: Patient Cosigned by Valencia Singh MD at 12/06/2024 5:16 PM CDT Associated attestation - Valencia Singh MD - 12/06/2024 5:16 PM CDT I reviewed the medical record including the applicable Critical Care Medicine APC note from today. I independently examined the patient I discussed the history, physical findings, laboratory findings, assessment and plan with the applicable APC on rounds.? I have reviewed the physical exam findings in the applicable resident/Fellow/INCOME TAX ADJUSTER/PA's note; my notable physical exam findings include: Body mass index is 31.55 kg/m??. Neuro: Alert, conversational, following commands, neuro intact CV: Normal rate, regular rhythm Resp: No distress GI: Soft, nontender Ext: No deformity, no edema I have reviewed the assessment and plan in the applicable APC note. Notable amendments to the assessment and plan include: [1] history of cardiomyopathy with EF 20-25%. Elevated troponins this admission. Cardiology consulted. Currently on aspirin/statin in addition to heparin GTT. Further workup per cardiology team. Echothis admission with EF 25-30%, which is stable compared to prior. [2] transaminitis on admission. Abdominal exam benign. Trending LFTs, downtrending. [3] concern for Sepsis on admission. No growth from culture data noted. UA appeared dirty but urineculture negative. De-escalated from broad-spectrum cefepime to ceftriaxone, plan for total 5-day course however if no obvious foci of infection this can be shortened further depending on clinical response. [4] ESRD on HD. ? Family Communication: Updated patient directly and daughter at bedside EM2 Active problem list: Principal Problem: Severe sepsis with septic shock (CMS/HCC) Active Problems: CLL (chronic lymphocytic leukemia) (CMS/HCC) Thrombocytopenia Dilated cardiomyopathy (CMS/HCC) Acute cystitis ESRD (end stage renal disease) on dialysis (CMS/HCC) Metabolic acidosis Elevated troponin level Chronic combined systolic and diastolic CHF (congestive heart failure) (CMS/HCC) Ischemic dilated cardiomyopathy (CMS/HCC) * Dustin Michel, ANP - 12/05/2024 2:45 PM CDT CRITICAL CARE MEDICINE DAILY PROGRESS NOTE PCP: Paula Sandoval MD Hx: Nisa Renae is a 79 y.o. male admitted 12/04/2024 with shortness of breath. [facility] of [facility] after calling EMS for shortness of breath. EMS reports they could not obtain pulse ox values so they placed him on an NRB. He denied chest pain. He had also called EMS the night prior due to a fall and they performed lift assist but he refused transport to the hospital at that time. On 12/03, the patient woke with weakness in his B/L Les, upper extremities,and was short of breath. He does have ESRD on HD TTS schedule and has an indwelling HD catheter in the right chest. He tells me that he feels ill after any procedures or especially injections due to his CLL. He had permanent HD access AV graft placed in the right upper arm on Friday and states thathe began to experience diarrhea and nausea with vomiting at that time. He has not felt well since. He states he has had some chest discomfort across the middle of his chest today that he thought was due to building excess fluid as he has not been able to urinate and typically can. He was noted to be hypotensive on arrival and was worked up for sepsis with blood cultures drawn and empiric abx given. He did not receive fluids due to fluid overload. His RPP was negative and his CXR showed signs of perihilar edema vs pneumonitis. His labs were remarkable for leukocytosis of 22k, thrombocytopenia 85k, abg with metabolic acidosis - pH 7.23 with base deficit 15. His LA was elevated at 13. His baseline troponin was elevated at 4791.His EKG was unremarkable. His BNP was elevated at 52k. His CT head and CT cervical spine were unremarkable. He received a dose of lasix as well as a dose of 125mg solu medrol. He remained hypotensive on levophed and receives his care at [facility] so he was transported to the [facility] ICU for further management. His PMH is remarkable for hypertension, T2DM, dyslipidemia, ESRD on HD TTS, anemia, BPH, ASHD s/p CABG, s/p PPM placement, and CLL. 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 Briefly hypotensive requiring vasopressors but now off Levophed. On antibiotics for severe sepsis with septic shock from acute cystitis. Urine culture pending. Troponin has remained elevated despite correction of acidosis postdialysis however trending flat. Cardiology thinks possibly demand ischemia from underlying infection compounded by chronic CAD and history of CABG, ESRD. No need for ischemic evaluation at the moment. Plan for 48 hours of heparin drip. Continue ASA and statin. Obtain CXR and abdominal x-ray for hypoxia, nausea, vomiting. Repeat LFTs and lactate. ICU timeline: Major active problem list: Principal Problem: Severe sepsis with septic shock (CMS/HCC) Active Problems: CLL (chronic lymphocytic leukemia) (CMS/HCC) Thrombocytopenia Dilated cardiomyopathy (CMS/HCC) Acute cystitis ESRD (end stage renal disease) on dialysis (CMS/HCC) Metabolic acidosis Elevated troponin level Chronic combined systolic and diastolic CHF (congestive heart failure) (CMS/HCC) Ischemic dilated cardiomyopathy (CMS/HCC) Subjective: 24 hour events - HD Objective: Current vital signs Blood pressure (!) 127/94, pulse 65, temperature 97.9 ??F (36.6 ??C), temperature source Axillary, resp. rate 17, height 5' 11 (1.803 m), weight 104.8 kg (231 lb), SpO2 90%. 24 hour BP and temperature range BP: (57-177)/(33-94) Temp (24hrs), Av.7 ??F (36.5 ??C), Min:97 ??F (36.1 ??C), Max:98.1 ??F (36.7 ??C) Input/Output 12/030 - 12/05 0659 In: 499.4 [I.V.:199.4] Out: 3475 [Urine:175] PHYSICAL EXAM: Gen: 79-yo male lying in bed in [facility] Neuro: A&O X 3, no focal deficits HEENT: AT/NC, PERRL, dry MM Cardiac: RRR, no murmur Pulm: CTA B/L, unlabored,on RA Abdomen: soft, nontender, +BS Skin: cool, dry, and intact Extremities: pedal pulses palpable B/L, no edema Data Review: BMP: Recent Labs 12/04/24 0157 12/04/24 1941 12/05/24 0327 GLUCOSE 261* 348* 291* BUN 44* 33* 45* CREAT 4.52* 3.35* 3.93* NA 135* 133* 134* K 6.4* 4.9 5.3* CL 96* 94* 96* CO2 14* 23 22 ANIONGAP 25* 16 16 estimated creatinine clearance is 18.5 mL/min (A) (by C-G formula based on SCr of 3.93 mg/dL (H)). LFTs: Recent Labs 12/04/24 194 ALKPHOS 84 ALT 130* AST 112* BILITOTAL 1.2* ALBUMIN 4.0 CBC: Recent Labs 12/04/24 0333 12/04/24 2111 12/05/24 0327 WBC 12.7* 22.6* 22.8* HGB 11.0* 10.6* 10.5* HCT 36.4* 34.3* 32.8* PLT 78* 97* 98* MCV 105.5* 101.2 98.8 Coagulation: No results for input(s): PT , INR , APTT in the last 72 hours. ABG: Lab Results Component Value Date/Time SPECIMENSOU Arterial 03/29/2024 01:39 AM SPECIMENSOU Arterial 03/29/2024 01:39 AM PHBLOODPOC 7.36 03/29/2024 01:39 AM KFJ9PQL 37 03/29/2024 01:39 AM PO2POC 72 (L) 03/29/2024 01:39 AM MAQ8GGA 21 (L) 03/29/2024 01:39 AM K1CNIMAS 97 03/29/2024 01:39 AM HGH1SED 22 (L) 03/29/2024 01:39 AM BEPOC -5 (L) 03/29/2024 01:39 AM LACTATE 3.2 (H) 12/04/2024 07:41 PM PATIENTTEMP 37.0 03/29/2024 01:39 AM PHTEMPCORR 7.36 03/29/2024 01:39 AM [id number] 37 03/29/2024 01:39 AM IH1XTLEDPV 72 (L) 03/29/2024 01:39 AM Lactic acid: Lab Results Component Value Date/Time LACTATE 3.2 (H) 12/04/2024 07:41 PM LACTATE 1.6 03/29/2024 01:39 AM Radiology: Reviewed Assessment and Plan Neuro/Psych: No acute concerns, he is neurologically intact. Cardiovascular/Fluids: Briefly hypotensive, was on Levophed but now off Hyperlipidemia: Resume [employer]IST Lipitor. CHF: Most recent EF in August was 20 to 25%, on Lasix twice daily and will hold for now, monitor andassess for resumption. Significantly elevated troponin. Remained elevated despite correction of acidosis postdialysis. Cardiology thinks possibly demand ischemia from underlying infection compounded by chronic CAD and history of CABG, ESRD. No need for ischemic evaluation at the moment. Continue ASA and statin. Pulmonary: Acute hypoxic respiratory failure, now for the 5 L nasal cannula. Will get chest x-ray. GI/NUT: Renal diet Transaminitis, Likely from shock. Trend and avoid hypotension for now. SUP, not indicated Renal/LYTES/Acid-Base: ESRD on HD: Last session yesterday 12/04. Nephrology following BPH: Resume [employer]ITION [employer]IST tamsulosin and Proscar. Infectious Disease: Severe sepsis with septic shock from acute cystitis. Continue cefepime, awaiting urine culture. Blood cultures negative thus far. Hem/Onc/Coag: Leukocytosis, chronically elevated from CLL however lower than they are usually. Thrombocytopenia: Appears chronic, monitor DVTp, SC heparin Endocrine: T2DM: Start MDSSI, monitor BG to maintain between 120 and 180. Musculoskeletal/Skin: Routine skin care per nursing. Family communication: Patient Cosigned by Walt Aguero MD at 12/05/2024 3:41 PM CDT Associated attestation - Walt Aguero MD - 12/05/2024 3:41 PM CDT I reviewed the medical record including the applicable Critical Care Medicine APC note from today. I independently examined the patient I discussed the history, physical findings, laboratory findings, assessment and plan with the applicable APC on rounds.? I have reviewed the physical exam findings in the applicable resident/Fellow/INCOME TAX ADJUSTER/PA's note; my notable physical exam findings include: Body mass index is 32.22 kg/m??. Elderly male appears stated age Neuro: Alert awake oriented CV: Regular rate and rhythm Resp: Clear to auscultate bilaterally Ext: No pedal edema I have reviewed the assessment and plan in the applicable APC note. Notable amendments to the assessment and plan include: 79-year-old male s personal history of ESRD on dialysis Friday. Patient reportedbilateral upper and lower extremity and generalized weakness along with shortness of breath. He wasnoted to be hypotensive in the ER worked up for sepsis given empiric antibiotics [facility].Patient was weaned off of Levophed overnight. Underwent hemodialysis yesterday. Persistently elevated troponin levels, patient had nausea last night started on heparin drip cardiology consulted today unclear if this is an acute ischemic event we will continue heparin drip for 48hours. Aspirin administered no obvious EKG changes.Patient had a recent stress test in August 2024 which showed no reversible ischemic defects and on nuc med scan EF was 34%. Echo in the same month August 2023 showed EF of about 5% which is the same as the echo done this morning with no new wall motion abnormalities Continue antibiotics for suspected urinary tract infection resulting in severe sepsis with septic shock. LFTs are elevated need to be trended to resolution Wean supplemental oxygen as tolerated, mild pulmonary edema noted on chest x-ray Unclear etiology of nausea treating with Compazine as needed, monitor closely overnight. Chest x-ray and abdominal x-ray are unrevealing no signs of any dilated bowel loops or ileus. ? Family Communication: Updated patient and daughter e3 Active problem list: Principal Problem: Severe sepsis with septic shock (CMS/HCC) Active Problems: CLL (chronic lymphocytic leukemia) (CMS/HCC) Thrombocytopenia Dilated cardiomyopathy (CMS/HCC) Acute cystitis ESRD (end stage renal disease) on dialysis (CMS/HCC) Metabolic acidosis Elevated troponin level Chronic combined systolic and diastolic CHF (congestive heart failure) (CMS/HCC) Ischemic dilated cardiomyopathy (CMS/HCC) * Conrado Shearer MD - 12/05/2024 8:16 AM CDT CARDIOLOGY HISTORY - PHYSICAL / CONSULTATION [place], [place] Requesting Physician: Walt Aguero,* Date of Admission: 12/04/2024 Today's Date: 12/05/2024 Chief Complaint(s)/Reason(s) for Consultation: Elevated troponins History: Nisa Renae is a 79 y.o. male (1945) who is a patient of Dr. 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 He was transferred here from [place] because of weakness with hypotension there is concern for sepsis he was admitted to ICU started on Levophed white cells were noted to be 12 which is unusual for him given that he has CLL white cells high as 83 recently. He had not been complaining of any chest pain troponins were noted to be 4417, 4870, 3956, 4726, 3843. Potassium was 6.4 creatinine 4.45 on admission Patient had a nuclear stress test 09/15/2024 which showed normal perfusion with evidence of prior arch area of infarction involving the apical and mid inferior segments, LVEF was 34%. Echocardiogram done 12/04/2024 showed LVEF 25 to 30% no significant change compared to prior. EKG shows ventricular paced rhythm, possible underlying sinus with complete heart block. He is being treated for acute cystitis with septic shock in ICU. He denies any chest pain with exertion recently but does complain of some fatigue and did report some mild chest pressure a day ago which was short-lived. He has not needed to be on vasopressors here blood pressures have been on the higher side and tolerated dialysis well. Family was reported patient was feeling cool but reported that he was having fever inside. Echocardiogram done on 12/04/2024 Summary and Conclusion: - Left ventricle: The cavity size is normal. Wall thickness is increased in a pattern of mild LVH. Global systolic function is severely reduced. The estimated ejection fraction is 25-30%. For Epic reporting: the left ventricular ejection fraction is 26% by biplane method of disks. There is diffuse hypokinesis. Grade II diastolic dysfunction. - Right ventricle: The cavity size is normal. Pacer wire or catheter noted in right ventricle. Systolic function is low normal to reduced. Systolic pressure is mildly increased. The estimated peak pressure is 38mm Hg. - Right atrium: Pacer wire or catheter noted in right atrium. - Aortic valve: The valve is trileaflet. The leaflets are mildly thickened. There is no stenosis. - Mitral valve: The annulus is mildly calcified. There is mild to moderate regurgitation. - Tricuspid valve: There is moderate regurgitation. - Inferior vena cava: The IVC is dilated. Respirophasic diameter changes are blunted (< 50%), consistent with elevated central venous pressure. Comparison: Compared to the previous study, LV systolic functionhas not changed. Prior Study Date: 09/15/2024. Nuclear stress test done 09/15/2024 Impression: 1. Myocardial perfusion part of imaging appears abnormal. No obvious reversible defect is noted to suggest significant myocardial ischemia. Scar/prior infarct of large size in the apical and mid inferior segments. Soft tissue attenuation present. 2. Left ventricular ejection fraction of 34%. 3. Stress EKG nondiagnostic for ischemia due to V-paced rhythm. 4. No previous study is available for a direct comparison. Limited echocardiogram done 09/15/2024 Summary and Conclusion: - Study data: A limited echo was performed - Left ventricle: Wall thickness is at the upper limits of normal. Global systolic function is severely reduced. The estimated ejection fraction is 20-25%. For Epic reporting: the left ventricular ejection fraction is 27% by biplane method of disks. There is diffuse hypokinesis with apical akinesis. - Right ventricle: The cavity size is normal. Pacer wire or catheter noted in right ventricle. Systolic function is mildly reduced. - Right atrium: Pacer wire or catheter noted in right atrium. Comparison: Compared to the prior study, there has been no significant interval change. 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 GERD (gastroesophageal reflux disease) Headache HTN (hypertension) Hyperlipidemia Malignant neoplasm (CMS/HCC) leukemia Motion sickness Peripheral vascular disease Stroke (CMS/HCC) TIA Past Surgical History: Procedure Laterality Date HX APPENDECTOMY HX CORONARY ARTERY BYPASS GRAFT HX PACEMAKER PLACEMENT NE CRTJ ARVEUGENIA FSTL XCP DIR ARVEUGENIA ANAST NONAUTOG GRF Right 11/29/2024 ARTERIOVENOUS GRAFT INSERTION performed by Klarissa Flowers MD at [facility] MA[facility] OR Medications Prior to Admission Medication Sig Dispense Refill Last Dose/Taking oxyCODONE-acetaminophen (PERCOCET) 5-325 mg tablet Take 1 Tablet by mouth every 4 hours as needed for Pain, Moderate. Max Daily Amount: 6 Tablets 15 Tablet 0 epoetin janet (EPOGEN INJECTION) Epoetin Janet (Epogen) carvediloL (COREG) 3.125 mg tablet Take 1 Tablet by mouth. glucosamine-chondroitin (ARTHX DS) 500-400 mg Capsule Take 1 Capsule by mouth. carvediloL (COREG) 6.25 mg tablet Take 1 Tablet (6.25 mg) by mouth every 12 hours. 90 Tablet 3 isosorbide mononitrate (IMDUR) 120 mg Extended Release 24 hour tablet Take 1 Tablet by mouth. sevelamer carbonate (RENVELA) 800 mg Tablet Take 800 mg by mouth. atorvastatin (LIPITOR) 80 mg tablet Take 1 Tablet (80 mg) by mouth daily. (Patient taking differently: Take 80 mg by mouth late in the day.) 30 Tablet 0 furosemide (LASIX) 40 mg tablet Take 2 Tablets (80 mg) by mouth two times daily, 7 hours apart. 120Tablet 0 diclofenac sodium (VOLTAREN) 1 % gel Apply 4 Grams to affected area 4 times daily as needed for Pain. loratadine (CLARITIN) 10 mg tablet Take 10 mg by mouth daily in the morning. nitroglycerin (NITROSTAT) 0.4 mg Tablet, Sublingual Place 0.4 mg under tongue every 5 minutes as needed for Chest Pain. docusate sodium (COLACE) 100 mg capsule Take 100 mg by mouth 2 times daily as needed for Constipation. fluticasone propionate (FLONASE) 50 mcg/spray [place], Suspension nasal inhaler Administer 1 [place] ineach nostril 2 times daily. acetaminophen (TYLENOL) 325 mg tablet Take 325 mg by mouth every 6 hours as needed. finasteride (PROSCAR) 5 mg tablet Take 5 mg by mouth daily. cholecalciferol, Vitamin D3, (VITAMIN D3) 25 mcg (1,000 unit) Capsule Take by mouth daily. insulin glargine (LANTUS) 100 unit/mL pen syringe Inject 50 Units by subcutaneous injection daily. tamsulosin (FLOMAX) 0.4 mg capsule Take 0.4 mg by mouth daily. Allergies Allergen Reactions Febuxostat Hives Allopurinol Unknown Iodinated Contrast Media Unknown Iodine Unknown and Other (See Comments) rr Levofloxacin Unknown Metformin Unknown Quetiapine Hallucination Family History Problem Relation Name Age of Onset Hypertension Father Heart Disease Father Diabetes Mother Heart Disease Mother Stroke Other Social History Tobacco Use Smoking status: Former Types: Cigarettes Smokeless tobacco: Never Substance Use Topics Alcohol use: Not Currently Comment: holidays/ special occasions Current Facility-Administered Medications Medication Dose Route Frequency Provider Last Rate Last Admin insulin glargine (LANTUS) injection 10 Units 0.1 Units/kg subCUT daily WITH breakfast Elaine Gaitan MD 10 Units at 12/05/24 0241 insulin lispro (HumaLOG,ADMELOG) injection 0-18 Units 0-18 Units subCUT TID WITH meals Elaine Gaitan MD insulin lispro (HumaLOG,ADMELOG) injection 0-9 Units 0-9 Units subCUT daily BEDTIME Elaine Gaitan MD insulin lispro (HumaLOG,ADMELOG) injection 0-9 Units 0-9 Units subCUT daily at 0200 Elaine Gaitan MD 3 Units at 12/05/24 0209 [COMPLETED] heparin injection 2,600 Units 30 Units/kg (Adjusted) IV ONE time only Walt Aguero MD 2,600 Units at 12/05/24 0417 heparin in 0.45% NaCl 25,000 unit/250 mL infusion 13.5 Units/kg/hr (Adjusted) IV titrate Walt Aguero MD 11.8 mL/hr at 12/05/24 0607 13.5 Units/kg/hr at 12/05/24 0607 prochlorperazine (COMPAZINE) injection 5 mg 5 mg IV every 6 hours PRN Dustin Michel ANP aspirin rectal suppository 300 mg 300 mg Rectal ONE time only Dustin Michel ANP [DISCONTINUED] heparin injection 2,600 Units 30 Units/kg (Adjusted) IV ONE time only Walt Aguero MD [DISCONTINUED] dextrose 5 % - sodium chloride 0.9 % infusion IV see admin instructions Elaine Gaitan MD [DISCONTINUED] dextrose 50% (D50) syringe 12.5 Gram 12.5 Gram IV see admin instructions Elaine Gaitan MD [DISCONTINUED] dextrose 50% (D50) syringe 25 Gram 25 Gram IV see admin instructions Elaine Gaitan MD [DISCONTINUED] glucagon HCL 1 mg/mL injection 1 mg 1 mg IM see admin instructions Elaine Gaitan MD naloxone (NARCAN) 0.4 mg/mL injection 0.1-0.4 mg 0.1-0.4 mg IV see admin instructions Tigist Dodson PA replacement reminder - Potassium 1 Each See Admin Instructions see admin instructions Tigist Dodson PA replacement reminder-Magnesium 1 Each See Admin Instructions see admin instructions Tigist Dodson PA replacement reminder - Phosphorus 1 Each See Admin Instructions see admin instructions Roddy Dodson PA replacement reminder-Calcium 1 Each See Admin Instructions see admin instructions Tigist Dodson PA tamsulosin (FLOMAX) SR 24 hour capsule 0.4 mg 0.4 mg Oral daily AFTER supper Tigist Dodson PA 0.4mg at 12/04/24 1711 atorvastatin (LIPITOR) tablet 10 mg 10 mg Oral daily BEDTIME Tigist Dodson PA 10 mg at 12/04/24 2115 acetaminophen (TYLENOL) tablet 650 mg 650 mg Oral every 6 hours PRN Tigist Dodson PA ondansetron (ZOFRAN) 4 mg/2 mL injection 4 mg 4 mg IV every 6 hours PRN Tigist Dodson PA 4 mg at 12/05/24 0609 finasteride (PROSCAR) tablet 5 mg 5 mg Oral daily Tigist Dodson PA 5 mg at 12/04/24 0944 hydrALAZINE (APRESOLINE) 20 mg/mL injection 10 mg 10 mg IV every 4 hours PRN Tigist Dodson PA dextrose 5 % - sodium chloride 0.9 % infusion IV see admin instructions Tigist Dodson PA dextrose 50% (D50) syringe 12.5 Gram 12.5 Gram IV see admin instructions Tigist Dodson PA dextrose 50% (D50) syringe 25 Gram 25 Gram IV see admin instructions Tigist Dodson PA glucagon HCL 1 mg/mL injection 1 mg 1 mg IM see admin instructions Tigist Dodson PA oxyCODONE-acetaminophen (PERCOCET) 5-325 mg per tablet 1 Tablet 1 Tablet Oral every 4 hours PRN Tgiist Dodson PA aluminum - magnesium - simethicone (MYLANTA) 200-200-20 mg/5 mL oral suspension 20 mL 20 mL Oral ONE time only Suleman Reed MD cefePIME (MAXIPIME) 1,000 mg in sodium chloride 0.9% 50 mL IVPB (MBP) 1,000 mg IV every 24 hours Walt Aguero MD Stopped at 12/04/24 1746 [COMPLETED] perflutren lipid microspheres (DEFINITY) 1.1 mg/mL injection 1.3 mL 1.3 mL IV intra-proc ONE time Conrado Shearer MD 0.26 mL at 12/04/24 0930 [COMPLETED] sodium chloride 0.9 % bolus solution 1,000 mL 1,000 mL See Admin Instructions ONE time only Samira Wagner DO Stopped at 12/04/24 1258 sodium chloride flush injection 10 mL 10 mL IV BID Walt Aguero MD 10 mL at 12/04/24 2116 sodium chloride flush injection 10 mL 10 mL IV see admin instructions Walt Aguero MD [COMPLETED] heparin injection 4,000 Units 4,000 Units IV ONE time only Tigist Dodson PA 4,000 Units at 12/04/24 2114 [DISCONTINUED] heparin injection 5,000 Units 5,000 Units subCUT every 8 hours Tigist Dodson PA 5,000 Units at 12/04/24 0550 [DISCONTINUED] cefePIME (MAXIPIME) 1 mg in sodium chloride 0.9 % 50 mL IVPB 1 mg IV every 24 hours Tigist Dodson PA [DISCONTINUED] VANCOMYCIN CONSULT TO PHARMACY See Admin Instructions see admin instructions Tigist Dodson PA [DISCONTINUED] insulin lispro (HumaLOG,ADMELOG) injection 0-12 Units 0-12 Units subCUT TID WITH meals Tigist Dodson PA 10 Units at 12/04/24 1153 [DISCONTINUED] insulin lispro (HumaLOG,ADMELOG) injection 0-6 Units 0-6 Units subCUT daily BEDTIME Tigist Dodson PA 4 Units at 12/04/24 2117 [DISCONTINUED] vancomycin (VANCOCIN) 500 mg in sodium chloride 0.9% 100 mL IVPB (MBP) 500 mg IV ONEtime only Walt Aguero MD [DISCONTINUED] heparin in 0.45% NaCl 25,000 unit/250 mL infusion 11.5 Units/kg/hr (Adjusted) IV titrate Tigist Dodson PA Stopped at 12/05/24 0420 Facility-Administered Medications as of 12/05/2024 Medication Dose Frequency Provider Last Rate Last Admin insulin glargine (LANTUS) injection 10 Units 0.1 Units/kg daily WITH breakfast Elaine Gaitan MD 10 Units at 12/05/24 0241 insulin lispro (HumaLOG,ADMELOG) injection 0-18 Units 0-18 Units TID WITH meals Elaine Gaitan MD insulin lispro (HumaLOG,ADMELOG) injection 0-9 Units 0-9 Units daily BEDTIME Elaine Gaitan MD insulin lispro (HumaLOG,ADMELOG) injection 0-9 Units 0-9 Units daily at 0200 Elaine Gaitan MD 3 Units at 12/05/24 0209 [COMPLETED] heparin injection 2,600 Units 30 Units/kg (Adjusted) ONE time only Walt Ageuro MD 2,600 Units at 12/05/24 0417 heparin in 0.45% NaCl 25,000 unit/250 mL infusion 13.5 Units/kg/hr (Adjusted) titrate Walt Aguero MD 11.8 mL/hr at 12/05/24 0607 13.5 Units/kg/hr at 12/05/24 0607 prochlorperazine (COMPAZINE) injection 5 mg 5 mg every 6 hours PRN Dustin Michel ANP aspirin rectal suppository 300 mg 300 mg ONE time only Dustin Michel ANP naloxone (NARCAN) 0.4 mg/mL injection 0.1-0.4 mg 0.1-0.4 mg see admin instructions Tigist Dodson PA replacement reminder - Potassium 1 Each see admin instructions Tigist Dodson PA replacement reminder-Magnesium 1 Each see admin instructions Tigist Dodson PA replacement reminder - Phosphorus 1 Each see admin instructions Tigist Dodson PA replacement reminder-Calcium 1 Each see admin instructions Tigist Dodson PA tamsulosin (FLOMAX) SR 24 hour capsule 0.4 mg 0.4 mg daily AFTER supper Tigist Dodson PA 0.4 mg at 12/04/24 1711 atorvastatin (LIPITOR) tablet 10 mg 10 mg daily BEDTIME Tigist Dodson PA 10 mg at 12/04/242114 acetaminophen (TYLENOL) tablet 650 mg 650 mg every 6 hours PRN Tigist Dodson PA ondansetron (ZOFRAN) 4 mg/2 mL injection 4 mg 4 mg every 6 hours PRN Tigist Dodson PA 4 mg at 12/05/24 0609 finasteride (PROSCAR) tablet 5 mg 5 mg daily Tigist Dodson PA 5 mg at 12/04/24 0944 hydrALAZINE (APRESOLINE) 20 mg/mL injection 10 mg 10 mg every 4 hours PRN Tigist Dodson PA dextrose 5 % - sodium chloride 0.9 % infusion see admin instructions Tigist Dodson PA dextrose 50% (D50) syringe 12.5 Gram 12.5 Gram see admin instructions Tigist Dodson PA dextrose 50% (D50) syringe 25 Gram 25 Gram see admin instructions Tigist Dodson PA glucagon HCL 1 mg/mL injection 1 mg 1 mg see admin instructions Tigist Dodson PA oxyCODONE-acetaminophen (PERCOCET) 5-325 mg per tablet 1 Tablet 1 Tablet every 4 hours PRN Tigist Dodson PA [COMPLETED] calcium GLUCONATE 100 mg/mL (10%) injection 1,000 mg 1,000 mg ONE time only Suleman Reed MD 1,000 mg at 12/04/24 0346 [COMPLETED] insulin regular (HumuLIN R,NovoLIN R) injection 10 Units 10 Units ONE time only Suleman Reed MD 10 Units at 12/04/24 0407 [COMPLETED] dextrose 50% (D50) syringe 25 Gram 25 Gram ONE time only Suleman Reed MD 25 Gram at 12/04/24 0347 [COMPLETED] dextrose 5 % bolus solution 120 mL 120 mL ONE time only Suleman Reed MD Stopped at 12/04/24 0715 [COMPLETED] albuterol (PROVENTIL,VENTOLIN) 2.5 mg /3 mL (0.083 %) inhalation solution 10 mg 10 mg resp, one time only Suleman Reed MD 10 mg at 12/04/24 0356 aluminum - magnesium - simethicone (MYLANTA) 200-200-20 mg/5 mL oral suspension 20 mL 20 mL ONE time only Suleman Reed MD cefePIME (MAXIPIME) 1,000 mg in sodium chloride 0.9% 50 mL IVPB (MBP) 1,000 mg every 24 hours Walt Aguero MD Stopped at 12/04/24 1746 [COMPLETED] perflutren lipid microspheres (DEFINITY) 1.1 mg/mL injection 1.3 mL 1.3 mL intra-proc ONE time Conrado Shearer MD 0.26 mL at 12/04/24 0930 [COMPLETED] sodium chloride 0.9 % bolus solution 1,000 mL 1,000 mL ONE time only Samira Wagner, DOStopped at 12/04/24 1258 sodium chloride flush injection 10 mL 10 mL BID Walt Aguero MD 10 mL at 12/04/24 211 sodium chloride flush injection 10 mL 10 mL see admin instructions Walt Aguero MD [COMPLETED] heparin injection 4,000 Units 4,000 Units ONE time only Tigist Dodson PA 4,000 Units at 12/04/242113 Review of Systems: 12 point review of systems negative except as above and as in HPI. Physical Examination: BP (!) 127/94 Pulse 65 Temp 98.1 ??F (36.7 ??C) (Axillary) Resp 17 Ht 5' 11 (1.803 m) Wt104.8 kg (231 lb) SpO2 90% BMI 32.22 kg/m?? Last documented weight: Weight: 104.8 kg (231 lb) (12/04/24 1219) Intake/Output Summary (Last 24 hours) at 12/05/2024 0816 Last data filed at 12/05/2024 0700 Gross per 24 hour Intake 499.43 ml Output 3475 ml Net -2975.57 ml Weight change: -0.408 kg (-14.4 oz) General appearance: in no acute distress Skin: warm and dry Head: normocephalic, atraumatic Eyes: conjunctivae pink Ears, Nose, Throat: unremarkable, oropharynx moist Neck: supple, no jugular venous distension, normal carotid upstroke Lungs: clear to auscultation bilaterally Chest wall: no tenderness Heart: normal S1 and S2, without murmurs, rubs or gallops; regular rhythm Abdomen: soft and nontender, normal bowel sounds present Extremities: no cyanosis, clubbing or edema, legs do feel cool Neurologic: alert and oriented X 3, normal affect Psych: normal mood and affect. Laboratory: Lab Results Component Value Date NA 134 (L) 12/05/2024 K 5.3 (H) 12/05/2024 CL 96 (L) 12/05/2024 CO2 22 12/05/2024 BUN 45 (H) 12/05/2024 CREAT 3.93 (H) 12/05/2024 CA 9.5 12/05/2024 Lab Results Component Value Date/Time CHOLTOT 134 03/29/2024 01:24 AM HDL 51 03/29/2024 01:24 AM LDLCALC 69 03/29/2024 01:24 AM LDLDIRECT 51 12/11/2020 12:00 AM TRIGLYCERIDE 70 03/29/2024 01:24 AM Lab Results Component Value Date WBC 22.8 (H) 12/05/2024 RBC 3.32 (L) 12/05/2024 HGB 10.5 (L) 12/05/2024 HCT 32.8 (L) 12/05/2024 PLT 98 (L) 12/05/2024 Lab Results Component Value Date PT 15.9 (H) 11/29/2024 No results found for: CKMB , TROPONIN No results found for: BNP Lab Results Component Value Date TSH 2.56 03/29/2024 Assessment: Principal Problem: Severe sepsis with septic shock ([facility]) Active Problems: CLL (chronic lymphocytic leukemia) ([facility]) Thrombocytopenia Dilated cardiomyopathy ([facility]) Acute cystitis ESRD (end stage renal disease) on dialysis ([facility]) Metabolic acidosis Elevated troponin Chronic combined systolic and diastolic CHF (congestive heart failure) ([facility]) Plan: -Patient admitted from outside hospital with reports of hypotension but since here has been more inthe hypertensive side -He has history of ESRD and CABG in the past troponins have been elevated significantly however trend has been undulating he has not had any chest pain here. EKG show a paced rhythm -He is also being treated for possible sepsis from UTI and possible pneumonia but grown CLL with significant drop in white cells -Troponin elevation possibly demand mediated from underlying infection compounded by underlying CADwith history of CABG and ESRD -He was started on heparin infusion we could complete 48 hours once no increased bleeding risk -Will defer further workup for potential ischemic evaluation to his primary technical recruiter -Aspirin 81 mg daily, increase Lipitor to 20 mg p.o. daily. -Monitor for any chest pain -Patient does feel cool on exam, LVEF around 25% which is similar to his recent. Will need to monitor for any evidence of cardiogenic shock especially if blood pressures are dropping or any worseningorgan function though there is also suspicion of infection on board as well. -Based on clinic notes there was discussion about possible upgrade to BACKWINDER-D due to excessive pacingof the device as his LVEF back last year had dropped from 40 to 45% to 20-25%. Will need to follow-up for this. - Continue dialysis he has been doing well with this with no drop in blood pressure - Keep electrolytes normal Sweeney is his primary technical recruiter will alert him of patient's admission Family members at bedside all questions answered Plan of care discussed with chief bank examiner Dr. Aguero Patient is DNR Conrado Shearer MD 12/05/24 This documentation was created by [employer] metal ceiling hanger software (known for inherent metal ceiling hanger error) using [employer] EHR. Effort has been done to assure accuracy of metal ceiling hanger. Any obvious errors or omissions should be clarified with the author of the document. * Elaine Gaitan MD - 12/05/2024 1:03 AM CDT [employer] CRITICAL CARE PHYSICIAN NOTE Elaine Gaitan MD 1:03 AM Virtual ticket received. Notified of hyperglycemia with glucose at 308. Pt takes lantus at home. Labs/notes briefly reviewed. Problem: Hyperglycemia Plan: Add lantus 10 units now. Increase insulin sliding scale to high dose ACHS and 0200. Call [employer] if assistance needed ([phone]) * Dustin Michel ANP - 12/04/2024 3:19 PM CDT Same day CCM update: Acutely ill 79-year-old male with a history of CLL, dilated cardiomyopathy with HFrEF and LVEF 20 to 25%, ESRD on HD, SSS with PPM presenting with shortness of breath, chest discomfort admitted to the ICU with shock, metabolic acidosis, sepsis, and elevated troponin. Patient off vasopressors on arrival to ICU. Now hypertensive. Significantly elevated troponins but now downtrending. Suspect type II demand ischemia from septic shock. Echo from today shows LVEF of 26%, RV dysfunction, G2 DD, moderate TR, moderate MR which is similar to previous exams. With ongoingmetabolic acidosis and hyperkalemia the plan is for dialysis today. Will reassess troponin, lactateafterwards. Continuing empiric antibiotics for septic shock and follow infectious workup. Treating acute cystitis. Urine culture pending. Cosigned by Walt Aguero MD at 12/04/2024 4:28 PM CDT Associated attestation - Walt Aguero MD - 12/04/2024 4:28 PM CDT I reviewed the medical record and personally examined patient I talked to the patient and his granddaughter. Patient transferred from [facility] due to concern for hypotension. Patient presented there with symptoms of shortness of breath patient has personal history of ESRD on dialysis Friday. Patient reported bilateral upper and lower extremity and generalized weakness along with shortness of breath. He was noted to be hypotensive in the ER worked up for sepsis given empiric antibiotics and transferred to [facility] due to vasopressor requirement. Patient was weaned off of Levophed overnight. No obvious source of infection identified. Patient's leukocytosis resolved and today white cell count is over 12,000 which is unusual for patient with CLL. He is due for his hemodialysis we will send patient to hemodialysis as his blood pressures are being well-maintained. There was elevation of troponin is also but normal EKG changes and no chest pain troponin elevation could be secondary to tachycardia associated with the sepsis and septic shock. We will co ntinue 1 more session of troponin and if it is still high we will start on heparin drip. Patient had a recent stress test in August 2024 which showed no reversible ischemic defects and on nuc med scanEF was 34%. Echo in the same month August 2023 showed EF of about 2025% which is the same as the echo done this morning with no new wall motion abnormalities. Will continue to monitor patient in the ICU I discussed his care with Dr. West with the nephrology. Additional critical care time-25 minutes * Wu Andrade PHARMACIST - 12/04/2024 1:35 PM CDT Pharmacokinetic Consult Sign-Off Note Noted that vancomycin has been discontinued on this patient. Per protocol, pharmacy will discontinue the consult to pharmacy and will sign off vancomycin monitoring. Please notify pharmacy if we can be of further assistance. Thank you for involving us in the care of this patient. ROBERT Becerra ' * Nate Nava, [facility] - 12/04/2024 10:41 AM CDT Images from the original note were not included. Patient educated regarding Definity ultrasound contrast and verbalizes positive understanding. Definity administered per policy. Patient free from complaints throughout procedure. [facility] PHYSICIAN ORDERS # [id number] [id number] ECHOCARDIOGRAPHY PROTOCOL FOR USE OF ECHOCARDIOGRAPHIC IMAGE ENHANCING AGENT (DEFINITY) This protocol is to be used during an Echocardiogram when a patient is technically difficult to image (as defined by [place] Society of Echocardiography guidelines - the inability to detect two or more contiguous segments in any three of the apical views) or when left ventricular thrombus is suspected. Verify consent to treat has been signed and explain the procedure to the patient. Confirm that the patient does not have a known allergy or hypersensitivity to Definity Perflutren Lipid Microspheres or its components such as polyethylene glycol (PEG). Patient indicated he was not allergic and wanted to have the contrast. Enter order for Definity into Electronic Health Record ???per protocol?? (will require interpreting technical recruiter to sign). Trained Echo Technologists may proceed with use of echocardiographic image enhancing agent. [facility] currently utilizes Definity (perflutren lipid microspheres). Administer Definity per Echocardiography Policy and Procedure #251 Administration of Ultrasound Contrast as follows: 1.3 mL of activated Definity (perflutren lipid microspheres) diluted with 8.7 mL of preservative-free saline in a 10 mL syringe Initial injection of up to 3mL administered slowly (subsequent injection of 1 to 2 mL as needed) References: Definity Prescribing Information package insert; Revised March 2011 http://www.[employer]/pdf/Definity%20US%20PI%92250230-1925% .pdf ASE Consensus Statement - [place] Society of Echocardiography Consensus Statement on the Clinical Applications of Ultrasonic Contrast Agents in Echocardiography; LULY, April 2008 http://www.asecho.org/files/public/ContrastConsensusStatement.pdf www.Plug.dj/how-administration.html Approved by: Medication Management Committee Initiated: 10/23/2011 Revised: 10/30/2023 Expires: * Lian Myers, PHARMACIST - 12/04/2024 9:14 AM CDT Vancomycin Consult to Pharmacy Current Antibiotic Therapies Vancomycin Day # 2 Assessment: Nisa Renae is a 79 y.o. male who is currently receiving vancomycin per random level dosing for suspected sepsis. WBC 12.7 K/uL, patient has been afebrile with Tmax last 24 hrs of 98.4 ??F, culturesin process. The target vancomycin trough range is 15-20 mcg/mL. Per nephrology notes the patient nia hemodialysis with a planned schedule for HD on Friday, , Friday. The last dose of vanc omycin was at outside facility yesterday, 12/03. The random level with AM labs today is 19.7 mcg/mL. Regarding cefepime, was ordered incorrectly so read as 1 mg q24h. Fixed to 1000 mg q24h. No doses appear missed as patient received at outside facility per internal charting. Plan: 1. Provide a one-time dose of vancomycin 500 mg IV today after the HD session is completed. 2. Will continue checking random levels with AM labs on dialysis days and will provide supplementaldoses as is appropriate at that time. 3. Will continue to monitor renal function daily. Pharmacy will continue to monitor the patient's labs. We will follow-up with daily progress note for Vancomycin and Aminoglycoside Consults and will write a progress note in the future if any additional dosage adjustment is needed on other renal consults. Subjective/Objective: Nisa Renae is a 79 y.o. male Temp (24hrs), Av.3 ??F (36.8 ??C), Min:98.2 ??F (36.8 ??C), Max:98.4 ??F (36.9 ??C) Pulse 65 Temp 98.2 ??F (36.8 ??C) (Axillary) Resp 23 Ht 5' 11 (1.803 m) Wt 105.2 kg (231 lb 14.4 oz) SpO2 99% BMI 32.34 kg/m?? WBC Date/Time Value Ref Range Status 12/04/2024 03:33 AM 12.7 (H) 4.8 - 10.8 K/uL Final 11/29/2024 06:47 AM 83.5 (H) 4.8 - 10.8 K/uL Final 04/06/2024 01:09 AM 54.9 (H) 4.8 - 10.8 K/uL Final PLATELETS Date/Time Value Ref Range Status 12/04/2024 03:33 AM 78 (L) 140 - 440 K/uL Final 11/29/2024 06:47 AM 87 (L) 140 - 440 K/uL Final 04/06/2024 01:09 AM 116 (L) 140 - 440 K/uL Final BUN Date/Time Value Ref Range Status 12/04/2024 01:57 AM 44 (H) 8 - 23 mg/dL Final 11/29/2024 06:47 AM 32 (H) 8 - 23 mg/dL Final 04/06/2024 01:09 AM 45 (H) 8 - 23 mg/dL Final CREATININE Date/Time Value Ref Range Status 12/04/2024 01:57 AM 4.52 (H) 0.67 - 1.17 mg/dL Final Comment: The GFR result is not clinically significant on patients <18 or >70 years of age. 11/29/2024 06:47 AM 3.86 (H) 0.67 - 1.17 mg/dL Final Comment: The GFR result is not clinically significant on patients <18 or >70 years of age. 04/06/2024 01:09 AM 4.67 (H) 0.67 - 1.17 mg/dL Final Comment: The GFR result is not clinically significant on patients <18 or >70 years of age. VANCOMYCIN, RANDOM Date/Time Value Ref Range Status 12/04/2024 01:57 AM 19.7 5.0 - 50.0 ug/mL Final Thank you for the consult and involving us in the care of this patient, we will continue to monitor. Lian Myers, PHARMACIST * Roselyn Love, PHARMACIST - 12/04/2024 5:41 AM CDT RX ANTICOAG MONITORING ORDERS Pharmacy to order, review, and report clinically significant changes in lab per [facility] Anticoagulation Protocol as follows: Orders for dosing changes and follow-up labs will be signed ???Per Protocol?? in [facility]. The name ofthe provider signed on the follow-up orders for cosignature will be assigned as follows: Orders placed by members of the Glue Clamp Operator or Hospitalist physician groups: If the original ordering provider is no longer the attending physician for the patient, responsibility for cosignature of the follow-up medication orders and labs will transfer from the original ordering provider to the current attending physician. Orders placed by any other provider: Responsibility for cosignature of the follow-up medication orders and labs will remain with the original ordering provider of the anticoagulant order. Pharmacy will order appropriate labs as indicated by the [facility] Anticoagulation Monitoring policy located on [employer] intranet, unless already ordered. The medications that will be monitored include (but are not limited to): Low molecular weight heparin, heparin, and fondaparinux Direct Thrombin Inhibiors (argatroban, bivalirudin dabigatran lepirudin) Warfarin Direct oral anticoagulants (rivaroxaban, apixaban, edoxaban) Pharmacy will order labs for patients not on a heparin protocol, warfarin protocol, or anticoagulant protocol. Nursing to order labs required as indicated by those protocols. This policy is in compliance with the [facility] National Patient Safety Goal 3E and authorized by the [facility] Pharmacy and Therapeutics Committee. Cosigned by Jim Asif MD at 12/04/2024 5:44 AM CDT * Suleman Reed MD - 12/04/2024 5:08 AM CDT Martha Arroyo - Critical Care Physician Note 5:08 AM Physician: Suleman Reed MD Virtual ticket received Labs/Notes briefly reviewed. Problem: Troponin elevation. On admission it was 4417. Currently it is 4870. intervention/follow up/discussion: It has been addressed in admission note. No EKG changes. Echocardiogram is pending. No intervention planned currently. Call Martha Arroyo if assistance needed ([phone]) Martha Child Critical Care Physician Note 5:54 AM Physician: Suleman Reed MD Virtual ticket received Labs/Notes briefly reviewed. Problem: Patient complaining of heartburn. intervention/follow up/discussion: Maalox ordered. Call Matrha Arroyo if assistance needed ([phone]) * Amando Goodman PHARMACIST - 12/04/2024 3:34 AM CDT Patient has Vanc Consult ordered for suspected sepsis. Patient already received a dose at 1942 yesterday per nurse, dose unknown. HD schedule prior to admission was TThS. Will order AM random for this morning, supposing HD will continue as it was prior to admission. Plan: 1. AM random ordered 2. Continue to monitor renal function daily. * Suleman Reed MD - 12/04/2024 3:16 AM CDT Martha Arroyo - Critical Care Physician Note 3:16 AM Physician: Suleman Reed MD Virtual ticket received Labs/Notes briefly reviewed. Problem: Hyperkalemia. Potassium of 6.4. Patient is scheduled for hemodialysis today. intervention/follow up/discussion: Myocardial stabilizing agent as well as shifting agents ordered.Will be dialyzed today for definitive clearance of potassium. Call Martha Arroyo if assistance needed ([phone]) * Amando Goodman PHARMACIST - 12/04/2024 2:56 AM CDT PHARMACY CONSULT SERVICE PROTOCOL: A ???CONSULT TO PHARMACY?? order has been placed on this patient per Hospital Pharmacy policy- [facility] Clinical Pharmacy Services. This order can be found on the [facility] and authorizes pharmacy tomanage the dosing and monitoring of consulted medications as follows: Pharmacy will order the initial doses and any labs deemed clinically necessary to dose a consulted medication. These initial orders will be signed ???Per Protocol?? under the name of the provider who placed the ???CONSULT TO PHARMACY?? order. Pharmacy will have the authority to modify the doses and order any labs deemed clinically necessaryfor consulted medications on subsequent days as long as the ???CONSULT TO PHARMACY?? order remainsactive on the [facility]. Orders for dosing changes and follow-up labs will be signed ???Per Protocol?? in [facility]. The name of the provider signed on the follow-up orders for cosignature will be assigned as follows: Consults for patients whose antimicrobials are being managed by members of the Glue Clamp Operator or Hospitalist physician groups: If the original authorizing provider is no longer the attending physician for the patient, responsibility for cosignature of the follow-up medication orders and labs will transfer from the original authorizing provider to the current attending physician. Consults for patients whose antimicrobials are being managed by any other provider: Responsibility for cosignature of the follow-up medication orders and labs will remain with the original authorizing provider of the ???CONSULT TO PHARMACY?? order. Any attending physician has the authority to cancel pharmacy dosing/monitoring and resume dosing/monitoring of the medications without pharmacy assistance at any time by discontinuing the ???CONSULT TO PHARMACY?? order from the [facility]. This protocol has been approved by the [facility] Pharmacy and Therapeutics Committee. Cosigned by Jim Asif MD at 12/04/2024 3:11 AM CDT documented in this encounter H&P Notes * Clinton Ascencio, DO - 12/10/2024 10:53 AM CDT Endoscopy History and Physical This is a 79 y.o. male patient scheduled for EGD for the indication as listed: Dark stools and acute anemia. Patient had risks and benefits discussed for colonoscopy with polypectomy or intervention of bleeding if necessary. The risks which include but are not limited to bleeding, perforation, swallowing ofstomach contents into the lungs (aspiration) or problems with heart or lung function associated with the procedure or sedation, unexpected allergic reaction to the medication used, damage to neighboring organs, infection and missed abnormalities such as polyps or cancers. Patient was explained thatcertain co-morbidities may increase the risk of some complications. The exam does not eliminate thefuture risk of cancer. Alternatives include stools tests and imaging studies. Patient had risks and benefits discussed for EGD with HATHAWAY capsule, biopsies, dilation, banding orintervention for bleeding if necessary. The risks which include but are not limited to unexpected allergic reaction to the medication used, a tear in the lining of the esophagus, stomach or small intestine, bleeding which may require transfusions, failure to diagnose as this is not a perfect test, infection, swallowing of stomach contents into the lungs (aspiration) or problems with heart or lungfunction associated with the procedure or sedation. Patient was explained that certain co-morbidities may increase the risk of some complications. Alternatives were discussed such as other tests or procedures along with medication trials. Explained to patient that treatment of complications may require hospitalization, antibiotics, additional procedures, blood transfusions, surgery or other measures deemed advisable for health and well-being. 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 GERD (gastroesophageal reflux disease) Headache HTN (hypertension) Hyperlipidemia Malignant neoplasm (CMS/HCC) leukemia Motion sickness Peripheral vascular disease Stroke (CMS/HCC) TIA Past Surgical History: Procedure Laterality Date HX APPENDECTOMY HX CORONARY ARTERY BYPASS GRAFT HX PACEMAKER PLACEMENT NE CRTJ ARVEN FSTL XCP DIR ARVEN ANAST NONAUTOG GRF Right 11/29/2024 ARTERIOVENOUS GRAFT INSERTION performed by Klarissa Flowers MD at [facility] MAIN OR Allergies Allergen Reactions Febuxostat Hives Allopurinol Unknown Iodinated Contrast Media Unknown Iodine Unknown and Other (See Comments) rr Levofloxacin Unknown Metformin Unknown Quetiapine Hallucination Social History Socioeconomic History Marital status: Spouse name: Not on file Number of children: Not on file Years of education: Not on file Highest education level: Not on file Occupational History Not on file Tobacco Use Smoking status: Former Types: Cigarettes Smokeless tobacco: Never Vaping Use Vaping status: Never Used Substance and Sexual Activity Alcohol use: Not Currently Comment: holidays/ special occasions Drug use: Never Sexual activity: Not Currently Partners: Female Other Topics Concern Not on file Social History Narrative Not on file Social Drivers of Health Food Insecurity: Not on file (10/15/2024) Transportation Needs: No Transportation Needs (10/15/2024) Transportation Needs Patient needs follow up regarding:: 1 Feeling Safe: Not At Risk (12/06/2024) Feeling Safe Patient has indicated abuse: : No Housing Stability: Low Risk (03/29/2024) Housing Stability Patient needs follow up regarding:: No concerns Medications Prior to Admission Medication Sig Dispense Refill Last Dose/Taking oxyCODONE-acetaminophen (PERCOCET) 5-325 mg tablet Take 1 Tablet by mouth every 4 hours as needed for Pain, Moderate. Max Daily Amount: 6 Tablets 15 Tablet 0 epoetin janet (EPOGEN INJECTION) Epoetin Janet (Epogen) carvediloL (COREG) 3.125 mg tablet Take 1 Tablet by mouth. glucosamine-chondroitin (ARTHX DS) 500-400 mg Capsule Take 1 Capsule by mouth. carvediloL (COREG) 6.25 mg tablet Take 1 Tablet (6.25 mg) by mouth every 12 hours. 90 Tablet 3 isosorbide mononitrate (IMDUR) 120 mg Extended Release 24 hour tablet Take 1 Tablet by mouth. sevelamer carbonate (RENVELA) 800 mg Tablet Take 800 mg by mouth. atorvastatin (LIPITOR) 80 mg tablet Take 1 Tablet (80 mg) by mouth daily. (Patient taking differently: Take 80 mg by mouth late in the day.) 30 Tablet 0 furosemide (LASIX) 40 mg tablet Take 2 Tablets (80 mg) by mouth two times daily, 7 hours apart. 120Tablet 0 diclofenac sodium (VOLTAREN) 1 % gel Apply 4 Grams to affected area 4 times daily as needed for Pain. loratadine (CLARITIN) 10 mg tablet Take 10 mg by mouth daily in the morning. nitroglycerin (NITROSTAT) 0.4 mg Tablet, Sublingual Place 0.4 mg under tongue every 5 minutes as needed for Chest Pain. docusate sodium (COLACE) 100 mg capsule Take 100 mg by mouth 2 times daily as needed for Constipation. fluticasone propionate (FLONASE) 50 mcg/spray [place], Suspension nasal inhaler Administer 1 [place] ineach nostril 2 times daily. acetaminophen (TYLENOL) 325 mg tablet Take 325 mg by mouth every 6 hours as needed. finasteride (PROSCAR) 5 mg tablet Take 5 mg by mouth daily. cholecalciferol, Vitamin D3, (VITAMIN D3) 25 mcg (1,000 unit) Capsule Take by mouth daily. insulin glargine (LANTUS) 100 unit/mL pen syringe Inject 50 Units by subcutaneous injection daily. tamsulosin (FLOMAX) 0.4 mg capsule Take 0.4 mg by mouth daily. Family History Problem Relation Name Age of Onset Hypertension Father Heart Disease Father Diabetes Mother Heart Disease Mother Stroke Other Physical Exam: General appearance/mental status patient alert and oriented in time place and person Neurological system within normal limits ASA Classification: ASA 3 - Patient with moderate systemic disease with functional limitations Mental Status Alert Lungs: normal respiratory effort and no acute respiratory distress Heart: regular rate Abdomen: Soft, non-tender Assessment: Plan: Will proceed with the above mentioned procedure as scheduled. * Tigist Dodson PA - 12/04/2024 1:15 AM CDT Images from the original note were not included. CRITICAL CARE MEDICINE HISTORY & PHYSICAL PCP: Paula Sandoval MD Subjective: CC: shortness of breath HPI: Nisa Renae is a 79 y.o. male admitted 12/04/2024 with shortness of breath. He originally presented to [facility] the evening of 12/03 after calling EMS for shortness of breath. EMS reports they could not obtain pulse ox values so they placed him on an NRB. He denied chest pain. He had also called EMS the night prior due to a fall and they performed lift assist but he refused transportto the hospital at that time. On 12/03, the patient woke with weakness in his B/L Les, upper extremities, and was short of breath. He does have ESRD on HD TTS schedule and has an indwelling HD catheter in the right chest. He tells me that he feels ill after any procedures or especially injections due to his CLL. He had permanent HD access AV graft placed in the right upper arm on Friday and he began to experience diarrhea and nausea with vomiting at that time. He has not felt well since. He states he has had some chest discomfort across the middle of his chest today that he thoughtwas due to building excess fluid as he has not been able to urinate and typically can. He was noted to be hypotensive on arrival and was worked up for sepsis with blood cultures drawn and empiric abx given. He did not receive fluids due to fluid overload. His RPP was negative and his CXR showed signs of perihilar edema vs pneumonitis. His labs were remarkable for leukocytosis of 22k, thrombocytopenia 85k, abg with metabolic acidosis - pH 7.23 with base deficit 15. His LA was elevated at 13. His baseline troponin was elevated at 4791.His EKG was unremarkable. His BNP was elevated at 52k. His CT head and CT cervical spine were unremarkable. He received a dose of lasix as well as a dose of 125mg solu medrol. He remained hypotensive on levophed and receives his care at [facility] so he was transported to the [facility] ICU for further management. His PMH is remarkable for hypertension, T2DM, dyslipidemia, ESRD on HD TTS, anemia, BPH, ASHD s/p CABG, s/p PPM placement, and CLL. 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 GERD (gastroesophageal reflux disease) Headache HTN (hypertension) Hyperlipidemia Malignant neoplasm (CMS/HCC) leukemia Motion sickness Peripheral vascular disease Stroke (CMS/HCC) TIA Past Surgical History: Procedure Laterality Date HX APPENDECTOMY HX CORONARY ARTERY BYPASS GRAFT HX PACEMAKER PLACEMENT NE CRTJ ARVEN FSTL XCP DIR ARVEN ANAST NONAUTOG GRF Right 11/29/2024 ARTERIOVENOUS GRAFT INSERTION performed by Klarissa Flowers MD at [facility] MAIN OR Medication List CONTINUE taking these medications acetaminophen 325 mg tablet Commonly known as: TYLENOL Take 325 mg by mouth every 6 hours as needed. Refills: 0 atorvastatin 80 mg tablet Commonly known as: LIPITOR Take 1 Tablet (80 mg) by mouth daily. Signed by: Dr. Geoff Tsang Quantity: 30 Tablet Refills: 0 * carvediloL 6.25 mg tablet Commonly known as: COREG Take 1 Tablet (6.25 mg) by mouth every 12 hours. Signed by: Nurse Practitioner Livier Dorsey Quantity: 90 Tablet Refills: 3 * carvediloL 3.125 mg tablet Commonly known as: COREG Take 1 Tablet by mouth. Refills: 0 cholecalciferol (Vitamin D3) 25 mcg (1,000 unit) Capsule Commonly known as: VITAMIN D3 Take by mouth daily. Refills: 0 diclofenac sodium 1 % gel Commonly known as: VOLTAREN Apply 4 Grams to affected area 4 times daily as needed for Pain. Refills: 0 docusate sodium 100 mg capsule Commonly known as: COLACE Take 100 mg by mouth 2 times daily as needed for Constipation. Refills: 0 EPOGEN INJECTION Epoetin Janet (Epogen) Refills: 0 finasteride 5 mg tablet Commonly known as: PROSCAR Take 5 mg by mouth daily. Refills: 0 fluticasone propionate 50 mcg/spray [place], Suspension nasal inhaler Commonly known as: FLONASE Administer 1 [place] in each nostril 2 times daily. Refills: 0 furosemide 40 mg tablet Commonly known as: LASIX Take 2 Tablets (80 mg) by mouth two times daily, 7 hours apart. Signed by: Dr. Geoff Tsang Quantity: 120 Tablet Refills: 0 glucosamine-chondroitin 500-400 mg Capsule Commonly known as: ARTHX DS Take 1 Capsule by mouth. Refills: 0 insulin glargine 100 unit/mL pen syringe Commonly known as: LANTUS Inject 50 Units by subcutaneous injection daily. Refills: 0 isosorbide mononitrate 120 mg Extended Release 24 hour tablet Commonly known as: IMDUR Take 1 Tablet by mouth. Refills: 0 loratadine 10 mg tablet Commonly known as: CLARITIN Take 10 mg by mouth daily in the morning. Refills: 0 nitroglycerin 0.4 mg Tablet, Sublingual Commonly known as: NITROSTAT Place 0.4 mg under tongue every 5 minutes as needed for Chest Pain. Refills: 0 oxyCODONE-acetaminophen 5-325 mg tablet Commonly known as: PERCOCET Take 1 Tablet by mouth every 4 hours as needed for Pain, Moderate. Max Daily Amount: 6 Tablets Signed by: Klarissa Flowers Quantity: 15 Tablet Refills: 0 sevelamer carbonate 800 mg Tablet Commonly known as: RENVELA Take 800 mg by mouth. Refills: 0 tamsulosin 0.4 mg capsule Commonly known as: FLOMAX Take 0.4 mg by mouth daily. Refills: 0 * !!Potential duplicate medications found. Review medication list carefully. Allergies: Allergies Allergen Reactions Febuxostat Hives Allopurinol Unknown Iodinated Contrast Media Unknown Iodine Unknown and Other (See Comments) rr Levofloxacin Unknown Metformin Unknown Quetiapine Hallucination Social History Tobacco Use Smoking status: Former Types: Cigarettes Smokeless tobacco: Never Substance Use Topics Alcohol use: Not Currently Comment: holidays/ special occasions Family History Problem Relation Name Age of Onset Hypertension Father Heart Disease Father Diabetes Mother Heart Disease Mother Stroke Other REVIEW OF SYSTEMS: CONSTITUTIONAL: weakness, fatigue, Denies: fever, chills, diaphoresis EYES: Denies: decreased vision, eye pain, diplopia ENT: Denies: sore throat, nasal congestion, nasal discharge CARDIOVASCULAR: chest pain, dyspnea on exertion, Denies: edema, palpitations RESPIRATORY: shortness of breath, Denies: cough, hemoptysis, wheezing ENDOCRINE: Denies: polydipsia/polyuria, palpitations, skin changes HEME-LYMPH: Denies: swollen lymph nodes, bleeding, bruising GI: nausea, vomiting, diarrhea, Denies: abdominal pain, blood in stool : infrequent urination, denies dysuria NEURO: loss of consciousness, Denies: dizzy/vertigo, headache Objective: Initial Vitals BP Pulse Resp Temp Temp src SpO2 No data found. PHYSICAL EXAMINATION: Gen: 79-yo male lying in bed in NAD Neuro: A&O X 3, no focal deficits HEENT: AT/NC, PERRL, dry MM Cardiac: RRR, no murmur Pulm: CTA B/L, unlabored,on RA Abdomen: soft, nontender, +BS Skin: cool, dry, and intact Extremities: pedal pulses palpable B/L, no edema Data Review: BMP:No results for input(s): GLUCOSE , BUN , CREAT , NA , K , CL , CO2 , ANIONGAP , CAIONIZED , MG , PO4 in the last 72 hours. estimated creatinine clearance is 18.8 mL/min (A) (by C-G formula based on SCr of 3.86 mg/dL (H)). LFTs:No results for input(s): ALKPHOS , ALT , AST , BILITOTAL , ALBUMIN , AMYLASE , LIPASE in the last 72 hours. CBC: No results for input(s): WBC , HGB , HCT , PLT , MCV in the last 72 hours. Coagulation: No results for input(s): PT , INR , APTT in the last 72 hours. ABGs: Lab Results Component Value Date/Time SPECIMENSOU Arterial 03/29/2024 01:39 AM SPECIMENSOU Arterial 03/29/2024 01:39 AM PHBLOODPOC 7.36 03/29/2024 01:39 AM BWU5PZF 37 03/29/2024 01:39 AM PO2POC 72 (L) 03/29/2024 01:39 AM RCD8RTF 21 (L) 03/29/2024 01:39 AM P0JWHRMI 97 03/29/2024 01:39 AM ZPG8HEZ 22 (L) 03/29/2024 01:39 AM BEPOC -5 (L) 03/29/2024 01:39 AM LACTATE 1.6 03/29/2024 01:39 AM PATIENTTEMP 37.0 03/29/2024 01:39 AM PHTEMPCORR 7.36 03/29/2024 01:39 AM OMG6VCSIOB 37 03/29/2024 01:39 AM NM2IJTONYS 72 (L) 03/29/2024 01:39 AM Radiology: Relevant results and imaging have been reviewed. Assessment and Plan: Neuro/Psych: No acute concerns, he is neurologically intact. Cardiovascular/Fluids: He is hemodynamically stable without vasopressors and is currently hypertensive. He did have hypotension requiring Levophed earlier in the evening and was worked up for sepsis. Hypotension: We will closely monitor it as he recently was weaned from Levophed and reinitiate antihypertensives as appropriate. Hyperlipidemia: Resume ACQUISITION SPECIALIST Lipitor. CHF: Most recent EF in August was 20 to 25%, on Lasix twice daily and will hold for now, monitor andassess for resumption. Elevated troponin/BNP: ESRD patients and may be chronically elevated but will check a troponin panel, reassess EKG, and repeat echo. Pulmonary: No acute concerns, he is saturating well on room air. GI/NUT: Renal diet SUP, not indicated Renal/LYTES/Acid-Base: ESRD on HD: We will consult nephrology in the morning to resume regular HD sessions. BPH: Resume ACQUISITION SPECIALIST tamsulosin and Proscar. Infectious Disease: He was sepsis activated prior to transfer. We will redraw blood cultures and obtain a UA as well assputum if able. Cover empirically with cefepime and vancomycin pending culture results. Check procalcitonin. Hem/Onc/Coag: Leukocytosis: Possible stress response versus sepsis, trend. Thrombocytopenia: Appears chronic, monitor History of CLL DVTp, SC heparin Endocrine: T2DM: Start MDSSI, monitor BG to maintain between 120 and 180. Musculoskeletal/Skin: Routine skin care per nursing. Additional comments: On arrival he is saturating well on room air and he is hypertensive without vasopressors. He tells me he would like to be a DNR/DNI. We are checking blood cultures, sputum, and UA. We will also check a troponin panel as his baseline troponin was significantly elevated prior to transfer. His BNP was also significantly elevated but he has ESRD which may be contributing to both of these. We will repeat his echo and obtain an EKG. His EKG was unremarkable prior to transfer. Will also check a procalcitonin. We are covering empirically with cefepime and vancomycin pending workup results. We will consult nephrology in the morning to resume his regular HD sessions. Family Communication: The patient was updated directly. Cosigned by Jim Asif MD at 12/04/2024 4:19 AM CDT Associated attestation - Jim Asif MD - 12/04/2024 4:19 AM CDT I reviewed the medical record including the applicable Critical Care Medicine APC note from today. I independently examined the patient I discussed the history, physical findings, laboratory findings, assessment and plan with the applicable APC on rounds.? I have reviewed the physical exam findings in the applicable resident/Fellow/INCOME TAX ADJUSTER/PA's note; my notable physical exam findings include: Spoke to OSH ED Reviewed Prior echo's and CT scans Body mass index is 32.34 kg/m??. Neuro: Non-focal CV: RRR Resp: CTA GI: NT Ext: No edema Pt was sent here from OSH as he was on pressors. He was volume resuscitated at OSH and placed on pressors. There was concern for septic shock but there was not a source. He does have leukocytosis butdoes have a HX of CLL so for him to have leukocytosis is expected. On arrival he is on RA and was HTN w/o pressors. Pending BC, sputum, UA, troponin panel as his baseline troponin was significantly elevated prior to transfer. His BNP was also significantly elevated but he has ESRD. Obtain an echo and obtain an EKG. His EKG was unremarkable prior to transfer. We are covering empirically with cefepime and vancomycin pending workup results. We will consult nephrology in the morning to resume his regular HD sessions. I have reviewed the assessment and plan in the applicable APC note. Critical care time: 60min excluding discussion with the family/procedure time . The high probability of sudden, clinically significant deterioration in the patient's condition required the highest level of my preparedness to intervene urgently. The services I provided to this patient were to treat and/or prevent clinically significant deterioration that could result in decomposition or . Services included the following: chart data review, reviewing nursing notes and/or old charts, documentation time, oracle webcenter consultant collaboration regarding findings and treatment options, medication orders and management, direct patient care, vital sign assessments and ordering, interpreting and reviewing diagnostic studies/lab tests. It did not include time spent performing other billable procedures. Signed Jim Asif MD Neph/CCM Portions of the record may have been created with voice recognition software. Occasional wrong-wordor `[id number]?? substitutions may have occurred due to the inherent limitations of voice recognition software. Read the chart carefully and recognize, using context, where substitutions have occurred. Please call if questions arise. Some part of the chart may have been copied forward. Copied forward data have been reviewed and and edited accordingly. documented in this encounter Procedure Notes * Dustin Stokes RN - 12/11/2024 5:01 PM CDT Renal Replacement Therapy Summary Procedure: Hemodialysis in chair Dialyzer: RVC Access: Right tunneled catheter Blood Flow: 400 ml/min Procedure Time: 4 hours Blood Volume Processed: 95 liters Ultrafiltration Volume: 1500 ml with 500 ml rinse back Anticoagulation: none (ordered) Dry Weight: tbd kg PreWeight: tal kg PostWeight: tal kg Post VS: BP:129/50 Pulse: 65 Temp:97.4 SpO2: 97 Dialyzer Cleared(%): 98% with no clotting Complications: none Report sent to: Unit nurse on 3D * Addy Jacobs NP - 12/11/2024 12:00 PM CDTAssociated Order(s): HEMODIALYSIS [facility] - Procedure Note Primary Information Systems Technician: Dr. Ro West PROCEDURE: Intermittent Hemodialysis INDICATION: end stage renal disease on hemodialysis Procedure: Utilizing the patient's RIJ Tunneled hemodialysis cath (has developing LUE arteriovenousgraft) as a vascular access, the patient was initiated on hemodialysis. Dialysis is planned for 4 hours. Blood flow of 400 ml per minute and Dialysate flow of 600 ml per minute were prescribed. The bath used was 3 mEq/L potassium, 3 mEq/L calcium, 140 mEq/L sodium and 35 mEq/L bicarbonate. UF goal:1L, BP stable. Revaclear 400 hollow fiber dialyzer was used. No heparin was used for anticoagulation. No complications have been encountered to this point. I was present during dialysis, and was available for the entirety of the dialysis treatment. # Compliant with frequency and duration of dialysis: yes Physical Exam: BP 128/50 (BP Location: Left arm, Patient Position (BP): Sitting) Pulse 64 Temp 97.6 ??F (36.4 ??C) (Oral) Resp 19 Ht 5' 11 (1.803 m) Wt 100 kg (220 lb 7.4 oz) SpO2 96% BMI 30.75 kg/m?? Sitting up in chair no complaints, compression stockings in place. Assesment and Plan: ESRD: on HD per his Friday, Friday and Friday outpatient schedule. Will see on HD days while inpatient. Anemia of chronic kidney disease Hgb less than goal Had egd yesterday Dose epogen stimulating agent Iron stores adequate tsat 29% Addy Jacobs NP [facility] 12/11/24, 12:00 PM Cosigned by Jim Farooq MD at 12/11/2024 12:22 PM CDT * Clinton Ascencio, - 12/10/2024 11:09 AM CDTAssociated Order(s): UPPER ENDOSCOPY REPORT [facility] Patient Name: Nisa Renae Procedure Date: 12/10/2024 Date of : 1945 Admit Type: Inpatient Age: 79 Attending MD: Clinton Ascencio DO, Procedure: Upper GI endoscopy Indications: Melena Providers: Clinton Ascencio DO Referring MD: Medicines: Propofol per Anesthesia Complications: No immediate complications. Procedure: After obtaining informed consent, the endoscope was passed under direct vision. Throughout the procedure, the patient's blood pressure, pulse, and oxygen saturations were monitored continuously. The Endoscope was introduced through the mouth, and advanced to the second part of duodenum. The upper GI endoscopy was accomplished without difficulty. The patient tolerated the procedure well. Estimated Blood Loss: Estimated blood loss was minimal. Findings: The examined esophagus was normal. Many non-bleeding cratered gastric ulcers with a flat pigmented spot and clean based (Coleman Class IIc and III) were found in the gastric fundus, in the gastric body and in the gastric antrum. The largest lesion was 4 mm in largest dimension. Biopsies were taken with a cold forceps for histology. No active bleeding. The examined duodenum was normal. Impression: - Normal esophagus. - Non-bleeding gastric ulcers with a flat pigmented spot (Coleman Class IIc). Biopsied. - Normal examined duodenum. Recommendation: - Twice daily PPI therapy. - Follow up pathology. - Advance diet as tolerated. - Repeat EGD after 8 weeks. - We will sign off please call for questions. Thanks for the consult. Clinton Ascencio DO 12/10/2024 11:09:39 AM Number of Addenda: 0 Note Initiated On: 12/10/2024 10:38 AM Scope Withdrawal Time Scope In: Scope Out: [address], [place] * Lexi Bell RN - 12/09/2024 10:35 AM CDT Renal Replacement Therapy Summary Procedure: Hemodialysis in bed in dialysis unit Dialyzer: RVC Access: R IJ tunneled Blood Flow: 400 ml/min Procedure Time: 4 hours Blood Volume Processed: 97.5 liters Ultrafiltration Volume: 1500 ml with 500 ml rinse back Anticoagulation: none (ordered) Dry Weight: unknown kg PreWeight: 103.2 kg PostWeight: 101.7 kg Post VS: BP:113/34 Pulse: 65 Temp:96.2 SpO2: 95% RA Dialyzer Cleared(%): 95% with moderate clotting Complications: slight dip in BP; midodrine dose given with some improvement Report sent to: Tara on 3d * Fabiola Puente NP - 12/09/2024 7:57 AM CDT PROCEDURE: Intermittent Hemodialysis INDICATION: ESRD Procedure: Utilizing the patient's vascular access, the patient was initiated on hemodialysis. Dialysis is planned for 4 hours. Blood flow of 400 ml per minute and Dialysate flow of 800 ml per minutewere prescribed. The bath used was 2 mEq/L potassium, 3 mEq/L calcium, 140 mEq/L sodium and 35 mEq/L bicarbonate. UF goal: 1L, BP stable. Polyflux 170 H hollow fiber dialyzer was used. No heparin wasused for anticoagulation. No complications have been encountered to this point. I was present during dialysis, and was available for the entirety of the dialysis treatment. Medications Reviewed in [facility] Physical Exam: BP (!) 100/36 Pulse 62 Temp (!) 96.4 ??F (35.8 ??C) Resp 16 Ht 5' 11 (1.803 m) Wt 103.2 kg (227 lb 8.2 oz) SpO2 98% BMI 31.73 kg/m?? HD access: [facility] Physical Exam Constitutional: No distress. HENT: Nose: Nose normal. Mouth/Throat: Oropharynx is clear. Eyes: Pupils are equal, round, and reactive to light. Cardiovascular: Regular rhythm and normal heart sounds. Pulmonary/Chest: Effort normal. Musculoskeletal: General: No edema. Neurological: He is alert and oriented to person, place, and time. Skin: Skin is warm and dry. Labs: Reviewed in [facility] Lab Results Component Value Date/Time NA 136 12/08/2024 04:23 AM K 4.3 12/08/2024 04:23 AM CL 98 12/08/2024 04:23 AM CO2 26 12/08/2024 04:23 AM CA 8.8 12/08/2024 04:23 AM BUN 54 (H) 12/08/2024 04:23 AM CREAT 4.59 (H) 12/08/2024 04:23 AM GLUCOSE 153 (H) 12/08/2024 04:23 AM ANIONGAP 12 12/08/2024 04:23 AM Lab Results Component Value Date/Time WBC 46.4 (H) 12/09/2024 04:07 AM HGB 7.8 (L) 12/09/2024 04:07 AM HGBPOC 10.1 (L) 03/29/2024 01:39 AM HCT 24.4 (L) 12/09/2024 04:07 AM HCTPOC 30 (L) 03/29/2024 01:39 AM PLT 63 (L) 12/09/2024 04:07 AM MCV 100.4 12/09/2024 04:07 AM Lab Results Component Value Date/Time CA 8.8 12/08/2024 04:23 AM PO4 4.7 (H) 04/06/2024 01:09 AM Lab Results Component Value Date/Time TOTALPROTEIN 5.4 (L) 12/08/2024 04:23 AM ALBUMIN 3.5 12/08/2024 04:23 AM Assessment and Plan: ESRD on hemodialysis per TTS schedule, will continue this schedule and see on hemodialysis days while inpatient. Hyperkalemia: running on 2k bath. No further treatment indicated. # compliant with frequency and duration of dialysis: yes Fabiola Puente NP [facility] 12/09/24, 7:57 AM Cosigned by Warren Portillo MD at 12/09/2024 3:45 PM CDT * Fabiola Puente NP - 12/07/2024 2:18 PM CDT PROCEDURE: Intermittent Hemodialysis INDICATION: ESRD Procedure: Utilizing the patient's vascular access, the patient was initiated on hemodialysis. Dialysis is planned for 4 hours. Blood flow of 400 ml per minute and Dialysate flow of 800 ml per minutewere prescribed. The bath used was 2 mEq/L potassium, 3 mEq/L calcium, 140 mEq/L sodium and 35 mEq/L bicarbonate. UF goal: 1L, BP stable. Polyflux 170 H hollow fiber dialyzer was used. No heparin wasused for anticoagulation. No complications have been encountered to this point. I was present during dialysis, and was available for the entirety of the dialysis treatment. Medications Reviewed in [facility] Physical Exam: BP (!) 125/31 Pulse 65 Temp (!) 96.7 ??F (35.9 ??C) Resp 9 Ht 5' 11 (1.803 m) Wt 100.7 kg (222 lb) SpO2 98% BMI 30.96 kg/m?? HD access: [facility] Physical Exam Constitutional: No distress. HENT: Nose: Nose normal. Mouth/Throat: Oropharynx is clear. Eyes: Pupils are equal, round, and reactive to light. Cardiovascular: Regular rhythm and normal heart sounds. Pulmonary/Chest: Effort normal. Musculoskeletal: General: No edema. Neurological: He is alert and oriented to person, place, and time. Skin: Skin is warm and dry. Labs: Reviewed in [facility] Lab Results Component Value Date/Time NA 132 (L) 12/07/2024 06:58 AM K 4.4 12/07/2024 06:58 AM CL 93 (L) 12/07/2024 06:58 AM CO2 22 12/07/2024 06:58 AM CA 8.5 (L) 12/07/2024 06:58 AM BUN 96 (H) 12/07/2024 06:58 AM CREAT 6.58 (H) 12/07/2024 06:58 AM GLUCOSE 114 (H) 12/07/2024 06:58 AM ANIONGAP 17 12/07/2024 06:58 AM Lab Results Component Value Date/Time WBC 30.4 (H) 12/07/2024 06:58 AM HGB 8.3 (L) 12/07/2024 06:58 AM HGBPOC 10.1 (L) 03/29/2024 01:39 AM HCT 26.2 (L) 12/07/2024 06:58 AM HCTPOC 30 (L) 03/29/2024 01:39 AM PLT 67 (L) 12/07/2024 06:58 AM MCV 98.9 12/07/2024 06:58 AM Lab Results Component Value Date/Time CA 8.5 (L) 12/07/2024 06:58 AM PO4 4.7 (H) 04/06/2024 01:09 AM Lab Results Component Value Date/Time TOTALPROTEIN 5.2 (L) 12/07/2024 06:58 AM ALBUMIN 3.4 (L) 12/07/2024 06:58 AM Assessment and Plan: ESRD on hemodialysis per TTS schedule, will continue this schedule and see on hemodialysis days while inpatient. Hyperkalemia: running on 2k bath. No further treatment indicated. # compliant with frequency and duration of dialysis: yes Fabiola Peunte NP [facility] 12/07/24, 2:18 PM Cosigned by Warren Portillo MD at 12/07/2024 8:23 PM CDT * Cornelia Ghotra RN - 12/07/2024 10:55 AM CDT Renal Replacement Therapy Summary Procedure: Hemodialysis in bed Dialyzer: RVC Access: RIJT Blood Flow: 385 ml/min Procedure Time: 4 hours Blood Volume Processed: 88.8 liters Ultrafiltration Volume: 2300 ml with 300 ml rinse back Anticoagulation: 0 (ordered) Dry Weight: TBD kg PreWeight: 222 LBS PostWeight: UTD kg Post VS: BP:125/34 Pulse: 65 Temp:97 SpO2: 98 Dialyzer Cleared(%): 98% with 0 clotting Complications: None Report sent to: Luda HEATON on 3D * Kike Spence RN - 12/04/2024 7:40 PM CDT VASCULAR ACCESS NOTE Midline PATIENT NAME: Nisa Renae DATE OF : 1945 CSN: [id number] DATE: 12/04/2024 Room: [address] [place] [address] Admit Date: 12/04/2024 Hospital day: LOS: 0 days LINE STATUS: A Midline catheter was successfully inserted and can be used Adult Midline Catheter 12/04/241939 Left: basilic vein (Active) 12/04/241939 basilic vein Earliest Known Present: Present on Admission: Orientation: Left: Size: Number of Insertion Attempts: 1 Insertion: Patient Tolerance: tolerated well Insertion: Pain Prevention: distraction Power Injectable Compatable: Yes Earliest Known Removed: Removal Indication: Removal Interventions: *Procedural Assist Insertion of Midline catheter WO SQ port >5 yrs 12/04/241939 Midline Catheter (WDL) WDL 12/04/241939 Extremity Circumference, Mid-Upper (cm) 33 12/04/241939 Patency flushes w/o difficulty;positive blood return 12/04/241939 Line Interventions antimicrobial cap/s in place or applied to line and/or tubing;system flushed;IV capped;aspirate returned 12/04/241939 Dressing Type/Securement antimicrobial patch/disc;transparent semipermeable dressing;secured with tape;catheter securement device utilized;site adhesive 12/04/241939 Dressing Changed Date 12/04/24 12/04/241939 Needleless Connector Changed Date 12/04/24 12/04/241939 Line Criteria Poor venous access;TPN, CHEMO, or Vesicant meds 12/04/241939 Number of days: 0 MIDLINE PROCEDURE A Time Out process was completed prior to the midline placement procedure confirming correct patient, correct procedure site, and correct procedure being performed. Ultrasound assessment was performed to assess adequacy of vascular anatomy Adequate vessel was located with less than 45% catheter to vein ratio. Insertion site cleansed for 30 seconds with Chlora-prep Allowed to dry before initial needle stick. A midline was inserted in the basilic vein of the left upper arm using ultrasound guidance under sterile technique. 18 gauge, 10 cm Secure port adhesive used Yes 1 attempts Blood drawn and sent to lab 35 minutes required to complete procedure Positive blood return visualized. Neutral pressure cap applied Catheter flushed easily with 5ml of Normal Saline Transparent antimicrobial dressing applied Antimicrobial cap placed Dressing with date, time and initials of RN Patient tolerated procedure well. Primary care nurse notified of catheter placement Kike Spence RN CARE AND MAINTENANCE This is not a central line. NO BLOOD PRESSURES on arm with powerglide Requires physician order for blood draws The midline is indicated for use as a peripheral IV access only Can remain in place UP TO 29 DAYS as long as catheter insertion site and extremity remain asymptomatic The midline is CT injectable with a maximum pressure of 325psi with rate of 5ml/sec (20 gauge), and7ml/sec (18 gauge) Securely apply neutral OR positive pressure cap when not in use. Flush catheter with 10ml normal saline before blood draw, after every use, and EVERY 12 HOURS for all in-patients Flush catheter once weekly when not in use(outpatient setting). Flush catheter using pulsating start-stop technique Always use 10ml syringe After blood sampling, flush catheter with 20ml normal saline Change dressing every 7 days and as needed using sterile technique * Violet Caban RN - 12/04/2024 4:20 PM CDT Renal Replacement Therapy Summary Procedure: Hemodialysis in ICU bed Dialyzer: RVC Access: Right IJ tunneled dialysis catheter Blood Flow: 400 ml/min Procedure Time: 4 hours Blood Volume Processed: 94.3 liters Ultrafiltration Volume: 3300 ml with 300 ml rinse back Anticoagulation: none (ordered) Dry Weight: TBD kg PreWeight: TAL kg PostWeight: TAL kg Post VS: BP:145/57 Pulse: 65 Temp:97 SpO2: 94 Dialyzer Cleared(%): 95% with mild clotting Complications: none Report sent to: SUDARSHAN Lyon on 6A. * Michaela Maldonado FNP - 12/04/2024 12:13 PM CDT PROCEDURE: Intermittent Hemodialysis INDICATION: ESRD Procedure: Utilizing the patient's vascular access, the patient was initiated on hemodialysis. Dialysis is planned for 4 hours. Blood flow of 400 ml per minute and Dialysate flow of 800 ml per minutewere prescribed. The bath used was 2 mEq/L potassium, 3 mEq/L calcium, 140 mEq/L sodium and 35 mEq/L bicarbonate. UF goal: 3L, BP stable. Polyflux 170 H hollow fiber dialyzer was used. No heparin wasused for anticoagulation. No complications have been encountered to this point. I was present during dialysis, and was available for the entirety of the dialysis treatment. Medications Reviewed in [facility] Physical Exam: Pulse 65 Temp 98 ??F (36.7 ??C) (Oral) Resp 23 Ht 5' 11 (1.803 m) Wt 105.2 kg (231 lb 14.4oz) SpO2 99% BMI 32.34 kg/m?? HD access: [facility] Physical Exam Constitutional: No distress. HENT: Nose: Nose normal. Mouth/Throat: Oropharynx is clear. Eyes: Pupils are equal, round, and reactive to light. Cardiovascular: Regular rhythm and normal heart sounds. Pulmonary/Chest: Effort normal. Musculoskeletal: General: No edema. Neurological: He is alert and oriented to person, place, and time. Skin: Skin is warm and dry. Labs: Reviewed in [facility] Lab Results Component Value Date/Time NA 135 (L) 12/04/2024 01:57 AM K 6.4 (HH) 12/04/2024 01:57 AM CL 96 (L) 12/04/2024 01:57 AM CO2 14 (L) 12/04/2024 01:57 AM CA 9.2 12/04/2024 01:57 AM BUN 44 (H) 12/04/2024 01:57 AM CREAT 4.52 (H) 12/04/2024 01:57 AM GLUCOSE 261 (H) 12/04/2024 01:57 AM ANIONGAP 25 (H) 12/04/2024 01:57 AM Lab Results Component Value Date/Time WBC 12.7 (H) 12/04/2024 03:33 AM HGB 11.0 (L) 12/04/2024 03:33 AM HGBPOC 10.1 (L) 03/29/2024 01:39 AM HCT 36.4 (L) 12/04/2024 03:33 AM HCTPOC 30 (L) 03/29/2024 01:39 AM PLT 78 (L) 12/04/2024 03:33 AM MCV 105.5 (H) 12/04/2024 03:33 AM Lab Results Component Value Date/Time CA 9.2 12/04/2024 01:57 AM PO4 4.7 (H) 04/06/2024 01:09 AM Lab Results Component Value Date/Time TOTALPROTEIN 6.0 (L) 03/29/2024 01:24 AM ALBUMIN 3.5 04/06/2024 01:09 AM Assessment and Plan: ESRD on hemodialysis per TTS schedule, will continue this schedule and see on hemodialysis days while inpatient. Hyperkalemia: running on 2k bath. No further treatment indicated. # compliant with frequency and duration of dialysis: yes ALL [facility] 12/04/24, 12:13 PM Cosigned by Ro West MD at 12/05/2024 2:50 PM CDT documented in this encounter Consult Notes * Roger Sanchez PA - 12/09/2024 1:55 PM CDT GI CONSULTATION PATIENT NAME: Nisa Renae : 1945 CSN: [id number] CONSULTATION DATE: 12/09/2024 REQUESTING PROVIDER: Jazmin Lema,* PRIMARY CARE PROVIDER: Paula Sandoval MD COLLABORATING PHYSICIAN: Dr. Ascencio IDENTIFYING DATA: Nisa Renae is a 79 y.o. male seen in gastroenterologic consultation for melena HISTORY OF PRESENT ILLNESS: Nisa Renae is a 79 y.o. male with PMH of CLL, HFrEF (EF 20%), ESRD on HD, GERD, T2DM, CAD. Patient was initially admitted to the ICU with septic shock, metabolic acidosis, and elevated troponins. Cardiology evaluated and suspected demand ischemia from septic shock. This admission he was on heparin but that was discontinued yesterday. Hematology has been consulted given his history of CLL and evidence of worsening leukocytosis, thrombocytopenia, and anemia. Since his admission on 12/04 his hemoglobin dropped from 11.0 => 7.8 (baseline Hgb 9-10). Other relevant labs include a BUN of54 and a creatinine of 4.59 in the setting of ESRD. GI was consulted today for several days of dark-colored stool. On exam, patient sleeping in apparent stress. He reports approximately 4 days of loose black tarry stool. He also reports some intermittent abdominal discomfort particularly after eating that has been ongoing for several weeks. He is not on blood thinners at home and he does not take NSAIDs ever. He has no previous history of GI bleeding or upper endoscopy. He had a colonoscopy in the past which was reportedly unremarkable. I spoke to bedside RN and FLIGHT ENGINEER INSPECTOR who note that patient's stool this afternoon was green in color. The patient claims that the stool was dark black but does concede that it was family nurse practitioner in color than it has been the last few days. 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 GERD (gastroesophageal reflux disease) Headache HTN (hypertension) Hyperlipidemia Malignant neoplasm (CMS/HCC) leukemia Motion sickness Peripheral vascular disease Stroke (CMS/HCC) TIA PAST SURGICAL HISTORY: Past Surgical History: Procedure Laterality Date HX APPENDECTOMY HX CORONARY ARTERY BYPASS GRAFT HX PACEMAKER PLACEMENT NE CRTJ ARVEN FSTL XCP DIR ARVEN ANAST NONAUTOG GRF Right 11/29/2024 ARTERIOVENOUS GRAFT INSERTION performed by Klarissa Flowers MD at [facility] MAIN OR CURRENT MEDS: No outpatient medications have been marked as taking for the 12/04/24 encounter (Hospital Encounter). ALLERGIES: Allergies Allergen Reactions Febuxostat Hives Allopurinol Unknown Iodinated Contrast Media Unknown Iodine Unknown and Other (See Comments) rr Levofloxacin Unknown Metformin Unknown Quetiapine Hallucination SOCIAL HISTORY / HABITS: Social History Socioeconomic History Marital status: Spouse name: Not on file Number of children: Not on file Years of education: Not on file Highest education level: Not on file Occupational History Not on file Tobacco Use Smoking status: Former Types: Cigarettes Smokeless tobacco: Never Vaping Use Vaping status: Never Used Substance and Sexual Activity Alcohol use: Not Currently Comment: holidays/ special occasions Drug use: Never Sexual activity: Not Currently Partners: Female Other Topics Concern Not on file Social History Narrative Not on file Social Drivers of Health Food Insecurity: Not on file (10/15/2024) Transportation Needs: No Transportation Needs (10/15/2024) Transportation Needs Patient needs follow up regarding:: 1 Feeling Safe: Not At Risk (12/06/2024) Feeling Safe Patient has indicated abuse: : No Housing Stability: Low Risk (03/29/2024) Housing Stability Patient needs follow up regarding:: No concerns FAMILY HISTORY: Family History Problem Relation Name Age of Onset Hypertension Father Heart Disease Father Diabetes Mother Heart Disease Mother Stroke Other REVIEW OF SYSTEMS: General ROS: Negative for - chills, fever, night sweats or weight loss. HEENT ROS: Negative for - acute vision loss, acute hearing loss, sore throat, nasal congestion. Respiratory ROS: Negative for - cough or shortness of breath. Cardiovascular ROS: Negative for - chest pain or palpitations. Gastrointestinal ROS: As per the history of present illness. Genito-Urinary ROS: Negative for - dysuria, hematuria, or frequency. Hematologic ROS: Negative for - easy bruisability. Musculoskeletal ROS: Negative for - joint pain, erythema, or swelling. Dermatological ROS: Negative for - rash or skin lesions. Neurological ROS: Negative for - unilateral motor or sensory loss, dementia. Behavioral/Psych ROS: Negative for - severe depression, suicidal ideation. PHYSICAL EXAM: VITALS: BP (!) 113/34 Pulse 62 Temp (!) 96.2 ??F (35.7 ??C) Resp 16 Ht 5' 11 (1.803 m) Wt 101.7 kg (224 lb 3.3 oz) SpO2 95% BMI 31.27 kg/m?? GEN: Nisa Renae is a 79 y.o. male in no acute distress. HEENT: Mucous membranes pink and moist. Sclera anicteric. NECK: Neck supple without lymphadenopathy or thyromegaly. LUNGS: Clear to auscultation posteriorly. HEART: Regular rate and rhythm. S1 and S2 normal. No murmurs, gallops, or rubs noted. ABD: Soft with normoactive BS. No palpable abnormalities or masses. No organomegaly noted. No appreciable tenderness. RECTAL: Not done at this time. EXT: Without cyanosis, deformity or pitting edema. SKIN: [place], warm, dry. NEURO: Grossly intact, A/OR. LABS: Recent Labs 12/07/24 0658 12/08/24 0423 12/09/24 0407 WBC 30.4* 35.1* 46.4* HGB 8.3* 8.2* 7.8* HCT 26.2* 25.8* 24.4* PLT 67* 68* 63* MCV 98.9 98.9 100.4 Recent Labs 12/07/24 0658 12/08/24 0423 GLUCOSE 114* 153* BUN 96* 54* CREAT 6.58* 4.59* NA 132* 136 K 4.4 4.3 CL 93* 98 CO2 22 26 ANIONGAP 17 12 CA 8.5* 8.8 Lab Results Component Value Date INR 1.2 11/29/2024 INR 1.2 04/01/2024 INR 1.13 03/28/2024 PT 15.9 (H) 11/29/2024 PT 15.8 (H) 04/01/2024 PT 14.9 03/28/2024 Lab Results Component Value Date ALT 76 (H) 12/08/2024 AST 28 12/08/2024 ALKPHOS 85 12/08/2024 Lab Results Component Value Date BILITOTAL 0.4 12/08/2024 DIAGNOSTICS: IMPRESSION and PLAN: 79-year-old male with PMH of CLL admitted to the ICU for septic shock and elevated troponins with GI consulted for acute blood loss anemia and several days of dark tarry stools Hemodynamically stable Reports 4 days of loose dark tarry stool Baseline Hgb 9-10. Hgb 11 => 7.8 since admission The black stools and worsening anemia started around the time patient was on heparin. Heparin was discontinued yesterday. Bedside RN and FLIGHT ENGINEER INSPECTOR report green-colored stools today however patient endorses continued black tarrystool. Given these conflicting reports we will make patient n.p.o. midnight and reevaluate tomorrow for possible EGD. 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 Hypertension I10 Stage 4 chronic kidney disease (CMS/HCC) N18.4 Transient ischemic attack G45.9 Chronic lymphocytic leukemia (CMS/HCC) C91.10 Type 2 diabetes mellitus with kidney complication, with long-term current use of insulin ([facility]) E11.29, Z79.4 HLD (hyperlipidemia) E78.5 CAD (coronary artery disease) I25.10 History of coronary angioplasty with insertion of stent Z95.5 Hx of CABG Z95.1 Benign prostatic hyperplasia without lower urinary tract symptoms N40.0 Hemoptysis R04.2 Community acquired pneumonia of right upper lobe of lung J18.9 Lesion of right [place] kidney N28.9 Acute hypoxic respiratory failure ([facility]) J96.01 Anemia D64.9 Thrombocytopenia D69.6 Moderate protein malnutrition E44.0 Dilated cardiomyopathy ([facility]) I42.0 Acute combined systolic and diastolic congestive heart failure ([facility]) I50.41 Acute cystitis N30.00 Severe sepsis with septic shock ([facility]) A41.9, R65.21 ESRD (end stage renal disease) on dialysis ([facility]) N18.6, Z99.2 Metabolic acidosis E87.20 Elevated troponin level R79.89 Chronic combined systolic and diastolic CHF (congestive heart failure) ([facility]) I50.42 Ischemic dilated cardiomyopathy ([facility]) I25.5, I42.0 Plan of care discussed and developed in collaboration with LOLLY BriscoeC Gastroeneterology MDM complexity: moderate On the day of this visit I spent 35 minutes providing care to this patient including Preparing to see the patient, Obtaining and/or reviewing separately obtained history, Coordinating with bedside members of the care team, Counseling and educating the patient/family/caregiver, Ordering medications,tests or procedures, Documenting clinical information in the medical record, Referring and communication with other health manager career (not separately reported), Independently interpreting results and communicating results to the patient/family/caregiver (not separately reported), and Care coordination (not separately reported) Cosigned by Clinton Ascencio DO at 12/09/2024 4:36 PM CDT Associated attestation - Clinton Ascencio DO - 12/09/2024 4:36 PM CDT I have personally seen and examined the patient and the plan of care was set under my direction. 79-year-old GI consult for melena. Patient has a history of CLL, CHF, end-stage renal disease initially admitted to the ICU for septic shock metabolic acidosis elevated troponins. Patient states that past 4 days she has had black tarry stools. Patient denies any abdominal discomfort. Patient has a history of chronic anemia hemoglobin has been in his normal trend currently 7.8. Physical Exam: BP (!) 113/34 Pulse 62 Temp (!) 96.2 ??F (35.7 ??C) Resp 16 Ht 5' 11 (1.803 m) Wt 101.7 kg (224 lb 3.3 oz) SpO2 95% BMI 31.27 kg/m?? General appearance: alert, in no distress Lungs: clear to auscultation bilaterally, normal respiratory effort Heart: normal rate, regular rhythm, normal S1, S2, no murmurs, rubs, clicks or gallops Abdomen: Soft, non-tender. Bowel sounds normal. No masses, no organomegaly. Impression and plan 79-year-old male with CLL admitted for septic shock and elevated troponins which have improved currently on the floor but has had black stools over the past 4 days. Set patient up for EGD to further evaluate. Further recommendations to follow. Rishabh Ascencio, * Umm Dotson, - 12/09/2024 9:58 AM CDT [facility] ONCOL[facility] CONSULTATION NOTE Nisa Renae is a 79 y.o. male 1945 CSN:[id number] Referring provider Dr Lema Reason for referral CLL History of Present illness: The patient initially presented as a direct admission to the [facility] service for shortness of breath and hypotension. The patient had presented to an [facility] for evaluation of shortness of breath. The patient had fallen the night prior but declined transfer to the ED. He was found to be hypotensive on arrival to the [facility]. He was started on pressors and transferred to [facility] for further management, The patient is seen awake and alert, sitting up in the chair. He reports no complaints. Reports he has followed with oncology at [place] and that leukemia just blows up and they never really gota handle on it. 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, approximately 50% marrow cellularity Managed initially on observation Therapy with benadmustine + rtixuan August 2015-developed generalized erythematous itchy skin eruptions, hypersensitivity reaction to either medication-treated with steroids Back on observation secondary to drug reaction Increase in WBC to 76K October 2017 Therapy with ibrutinib Again developed skin rash/reaction-suspected secondary to allopurinol S/p rasburicase January 2018 Ibrutinib January 2018 Diagnosed with COVID19 November 2018-ibrutinib stopped Increase in lymphocyte counts again April 2021 Therapy with rituxan+venetoclax-developed significant side effects during escalation doses of venetoclax-stopped due to side effects Trial of acalbrutinib and zanubrutinib-tolerated both poorly Last seen in the office May 2024-no active treatment at that time, plan to intiate therapy only once WBC >/= 100-150 Nisa Renae is a 79 y.o. male with the following history as recorded in [facility]: Patient Active Problem List Diagnosis Date Noted Melena 12/09/2024 Acute blood loss anemia 12/09/2024 Ischemic dilated cardiomyopathy ([facility]/HCC) 12/05/2024 Acute cystitis 12/04/2024 Severe sepsis with septic shock ([facility]) 12/04/2024 ESRD (end stage renal disease) on dialysis ([facility]) 12/04/2024 Metabolic acidosis 12/04/2024 Elevated troponin level 12/04/2024 Chronic combined systolic and diastolic CHF (congestive heart failure) ([facility]/HCC) 12/04/2024 Moderate protein malnutrition 04/02/2024 Dilated cardiomyopathy ([facility]/HCC) 04/02/2024 Acute combined systolic and diastolic congestive heart failure ([facility]/HCC) 04/02/2024 Mixed conductive and sensorineural hearing loss 03/29/2024 Hypertension 03/29/2024 Transient ischemic attack 03/29/2024 Type 2 diabetes mellitus with kidney complication, with long-term current use of insulin ([facility]/HCC) 03/29/2024 HLD (hyperlipidemia) 03/29/2024 CAD (coronary artery disease) 03/29/2024 History of coronary angioplasty with insertion of stent 03/29/2024 Hx of CABG 03/29/2024 Benign prostatic hyperplasia without lower urinary tract symptoms 03/29/2024 Hemoptysis 03/29/2024 Community acquired pneumonia of right upper lobe of lung 03/29/2024 Lesion of right [place] kidney 03/29/2024 Acute hypoxic respiratory failure ([facility]) 03/29/2024 Anemia 03/29/2024 Thrombocytopenia 03/29/2024 Impaired mobility 02/02/2021 CLL (chronic lymphocytic leukemia) ([facility]) 02/02/2021 History of COVID-19 02/02/2021 Generalized muscle weakness 01/30/2021 Acute cystitis without hematuria 01/30/2021 Stage 4 chronic kidney disease ([facility]) 11/05/2019 Chronic lymphocytic leukemia ([facility]) 11/05/2019 No current facility-administered medications on file prior to encounter. Current Outpatient Medications on File Prior to Encounter Medication Sig Dispense Refill oxyCODONE-acetaminophen (PERCOCET) 5-325 mg tablet Take 1 Tablet by mouth every 4 hours as needed for Pain, Moderate. Max Daily Amount: 6 Tablets 15 Tablet 0 epoetin janet (EPOGEN INJECTION) Epoetin Janet (Epogen) carvediloL (COREG) 3.125 mg tablet Take 1 Tablet by mouth. glucosamine-chondroitin (ARTHX DS) 500-400 mg Capsule Take 1 Capsule by mouth. carvediloL (COREG) 6.25 mg tablet Take 1 Tablet (6.25 mg) by mouth every 12 hours. 90 Tablet 3 isosorbide mononitrate (IMDUR) 120 mg Extended Release 24 hour tablet Take 1 Tablet by mouth. sevelamer carbonate (RENVELA) 800 mg Tablet Take 800 mg by mouth. atorvastatin (LIPITOR) 80 mg tablet Take 1 Tablet (80 mg) by mouth daily. (Patient taking differently: Take 80 mg by mouth late in the day.) 30 Tablet 0 furosemide (LASIX) 40 mg tablet Take 2 Tablets (80 mg) by mouth two times daily, 7 hours apart. 120Tablet 0 diclofenac sodium (VOLTAREN) 1 % gel Apply 4 Grams to affected area 4 times daily as needed for Pain. loratadine (CLARITIN) 10 mg tablet Take 10 mg by mouth daily in the morning. nitroglycerin (NITROSTAT) 0.4 mg Tablet, Sublingual Place 0.4 mg under tongue every 5 minutes as needed for Chest Pain. docusate sodium (COLACE) 100 mg capsule Take 100 mg by mouth 2 times daily as needed for Constipation. fluticasone propionate (FLONASE) 50 mcg/spray [place], Suspension nasal inhaler Administer 1 [place] ineach nostril 2 times daily. acetaminophen (TYLENOL) 325 mg tablet Take 325 mg by mouth every 6 hours as needed. finasteride (PROSCAR) 5 mg tablet Take 5 mg by mouth daily. cholecalciferol, Vitamin D3, (VITAMIN D3) 25 mcg (1,000 unit) Capsule Take by mouth daily. insulin glargine (LANTUS) 100 unit/mL pen syringe Inject 50 Units by subcutaneous injection daily. tamsulosin (FLOMAX) 0.4 mg capsule Take 0.4 mg by mouth daily. 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 GERD (gastroesophageal reflux disease) Headache HTN (hypertension) Hyperlipidemia Malignant neoplasm (CMS/HCC) leukemia Motion sickness Peripheral vascular disease Stroke (CMS/HCC) TIA Past Surgical History: Procedure Laterality Date HX APPENDECTOMY HX CORONARY ARTERY BYPASS GRAFT HX PACEMAKER PLACEMENT NE CRTJ ARVEUGENIA FSTL XCP DIR ALEN CASAS NONAUTOG GRF Right 11/29/2024 ARTERIOVENOUS GRAFT INSERTION performed by Klarissa Flowers MD at [facility] MAIN OR Family History Problem Relation Name Age of Onset Hypertension Father Heart Disease Father Diabetes Mother Heart Disease Mother Stroke Other Social History Tobacco Use Smoking status: Former Types: Cigarettes Smokeless tobacco: Never Substance Use Topics Alcohol use: Not Currently Comment: holidays/ special occasions Review of Symptoms: Constitutional: denies fevers, chills, sweats, fatigue Neurological: denies headaches, weakness, visual changes Respiratory: denies cough, dyspnea, nosebleeds Cardiovascular: denies chest pain or discomfort Gastrointestinal: denies abdominal pain, constipation, diarrhea, vomiting Genitourinary: denies dysuria, urinary frequency Hematologic, Oncologic: denies bruising, bleeding, petechiae Lymphatic: denies lymph node swelling, no lumps or bumps Musculoskeletal: denies: myalgia, muscle weakness Skin: denies nail changes or rash PHYSICAL EXAMINATION: Vitals: 12/09/24 1045 BP: (!) 113/34 Pulse: Resp: 16 Temp: (!) 96.2 ??F (35.7 ??C) SpO2: 95% PHYSICAL EXAMINATION: General appearance: Alert, in no distress ECOG 0. Head: Atraumatic, normocephalic without obvious abnormality. Eyes: Conjunctivae/corneas clear. PERRL, EOM's intact. Nose: Nares normal. Septum midline. Mucosa normal, no drainage, or sinus tenderness. Lungs: Clear to auscultation bilaterally, normal respiratory effort. Heart: Normal rate, regular rhythm, normal S1-S2, no murmurs, rubs, clicks, or gallops. Abdomen: Soft, non-tender. Bowel sounds normal, no masses, no organomegaly. Extremities: No extremity edema, no redness or tenderness in the calves or thighs, normal strength,normal tone. Pulses: 2+ and symmetric. Skin: Skin color, texture, turgor normal, no rashes, or lesions. LABORATORY/RADIOLOGY DATA: Lab Results Component Value Date/Time WBC 46.4 (H) 12/09/2024 04:07 AM HGB 7.8 (L) 12/09/2024 04:07 AM HGBPOC 10.1 (L) 03/29/2024 01:39 AM HCT 24.4 (L) 12/09/2024 04:07 AM HCTPOC 30 (L) 03/29/2024 01:39 AM PLT 63 (L) 12/09/2024 04:07 AM MCV 100.4 12/09/2024 04:07 AM Lab Results Component Value Date/Time NA 136 12/08/2024 04:23 AM K 4.3 12/08/2024 04:23 AM CL 98 12/08/2024 04:23 AM CO2 26 12/08/2024 04:23 AM CA 8.8 12/08/2024 04:23 AM BUN 54 (H) 12/08/2024 04:23 AM CREAT 4.59 (H) 12/08/2024 04:23 AM GLUCOSE 153 (H) 12/08/2024 04:23 AM TOTALPROTEIN 5.4 (L) 12/08/2024 04:23 AM ALBUMIN 3.5 12/08/2024 04:23 AM BILITOTAL 0.4 12/08/2024 04:23 AM ALKPHOS 85 12/08/2024 04:23 AM AST 28 12/08/2024 04:23 AM ALT 76 (H) 12/08/2024 04:23 AM ANIONGAP 12 12/08/2024 04:23 AM LUB IMPRESSION: 1. 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 Correlation with right upper quadrant ultrasound can be performed as clinically warranted. 2. No evidence of bowel obstruction. CXR IMPRESSION: 1. Vascular congestion with mild interstitial edema at the lung bases. 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 CLL, approximately 50% marrow cellularity -managed initially on observation -therapy with benadmustine + rtixuan August 2015-developed generalized erythematous itchy skin eruptions, hypersensitivity reaction to either medication-treated with steroids-back on observation secondary to drug reaction -increase in WBC to 76K October 2017 -therapy with ibrutinib-again developed skin rash/reaction-suspected secondary to allopurinol -s/p rasburicase January 2018 -therapy with ibrutinib January 2018-diagnosed with COVID19 November 2018-ibrutinib stopped -increase in lymphocyte counts again April 2021 -therapy with rituxan+venetoclax-developed significant side effects during escalation doses of venetoclax-stopped due to side effects -trial of acalbrutinib and zanubrutinib-tolerated both poorly -last seen in the office May 2024-no active treatment at that time, plan to intiate therapy only once WBC >/= 100-150 -patient would prefer to transfer care to [facility]-message sent to zoning assistant and nurse navigator Leukocytosis -secondary to CLL -WBC 46.4 Anemia Thrombocytopenia -secondary to CLL, infection -hgb 7.8 -monitor daily -plan to transfuse for hgb <7 or active bleeding -plts 63 -monitor daily -plan to transfuse for plts < 10 or active bleeding -plan to hold AC for plts <50 -medical management per primary team and appropriate consultants Oncology daily plan: -no acute inpatient oncology needs-patient on no active therapy for CLL at this time and no indication for such -will arrange outpatient follow up in the clinic -monitor counts,plan to hdz culture for fever > 100.4 if ANC < 1 -monitor counts, plan to transfuse for hgb <7, plts <10 or active bleeding Discharge planning -disposition-TBD per primary team -timeframe-TBD per primary team -criteria-clinical improvement -follow up-TBD pending clinical course This note is prepared by Luda Romo NP acting as a scribe for Dr Nila Romo NP, 12/09/2024 2:37 PM Pt seen and examiend Chart reviewed The scribe's documentation has been prepared under my direction and personally reviewed by me in its entirety. I confirm that the note above accurately reflects all work, treatment, procedures, and medical decision making performed by me. Umm Dotson DO Significant hemoglobin drop on heparin Poor historian He states he does not want to go back to [place] for his CLL Poor historian Agree with EGD tomorrow Will f/u outpatient for CLL His counts seem to be stable as far as his CLL goes. Check iron studies On dialysis and may need procrit and Iron Will sign off * Miley Deshpande - 12/06/2024 1:20 PM CDT Reason for Visit: Referral (BPA) Patient spiritual issues identified summary of patient???s most significant issue(s): Family Trinh/values: Druze Needs/hopes resources: Nisa, did not express concerns during this encounter. He is with his . Spiritual interventions Prayer, emotional and spiritual support, active and compassionate listening Utilized presence and active listening to explore feelings, stressors, perceptions, questions/concerns, and coping patterns of Emotional support;Spiritual support provided AMMUNITION STOREKEEPER???S ASSESSMENT OF PATIENT???S LEVEL OF DISTRESS: Mild Outcomes of Care Nisa, asked for prayer and he joined in the prayers. 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 Recommendations for Healthcare Team As spiritual needs/distress arise, please contact Spiritual Care Services. We will follow up as needed. Thank you for this referral. Chaplain Miley Deshpande Spiritual Care Team [phone] * Kike Spence RN - 12/04/2024 7:05 PM CDTAssociated Order(s): IP CONSULT TO IV TEAM VASCULAR ACCESS CONSULT PATIENT NAME: Nisa Renae DATE OF : 1945 CSN: [id number] DATE: 12/04/2024 Room: [address] [place] [address] Admit Date: 12/04/2024 Hospital day: LOS: 0 days INDICATION: none seen, clarification needed EXCLUSIONS/CONSIDERATIONS: currently the chart shows 3 working PIV line with the need for one LAST RECORDED TEMP: Temp: 97 ??F (36.1 ??C) (12/04/24 7890)] Assessment Allergies Allergen Reactions Febuxostat Hives Allopurinol Unknown Iodinated Contrast Media Unknown Iodine Unknown and Other (See Comments) rr Levofloxacin Unknown Metformin Unknown Quetiapine Hallucination Lab Results Component Value Date/Time HGBA1C 7.1 (H) 03/29/2024 01:24 AM HGBA1C 7.0 03/28/2024 12:00 AM HGBA1C 8.0 12/11/2020 12:00 AM MALBUR 228.5 03/29/2024 06:06 PM LDLCALC 69 03/29/2024 01:24 AM LDLDIRECT 51 12/11/2020 12:00 AM CREAT 4.52 (H) 12/04/2024 01:57 AM Lab Results Component Value Date/Time CREAT 4.52 (H) 12/04/2024 01:57 AM BUN 44 (H) 12/04/2024 01:57 AM NA 135 (L) 12/04/2024 01:57 AM K 6.4 (HH) 12/04/2024 01:57 AM KPOC 5.1 (H) 03/29/2024 01:39 AM CL 96 (L) 12/04/2024 01:57 AM CO2 14 (L) 12/04/2024 01:57 AM GFR 12 12/04/2024 01:57 AM Lab Results Component Value Date/Time WBC 12.7 (H) 12/04/2024 03:33 AM HGB 11.0 (L) 12/04/2024 03:33 AM HGBPOC 10.1 (L) 03/29/2024 01:39 AM HCT 36.4 (L) 12/04/2024 03:33 AM HCTPOC 30 (L) 03/29/2024 01:39 AM PLT 78 (L) 12/04/2024 03:33 AM MCV 105.5 (H) 12/04/2024 03:33 AM IRON 51 (L) 04/01/2024 05:14 AM TIBC 196 (L) 04/01/2024 05:14 AM FERRITIN 179.9 04/01/2024 05:14 AM Lab Results Component Value Date/Time INR 1.2 11/29/2024 06:47 AM INR 1.2 04/01/2024 12:55 PM INR 1.13 03/28/2024 12:00 AM PT 15.9 (H) 11/29/2024 06:47 AM PT 15.8 (H) 04/01/2024 12:55 PM PT 14.9 03/28/2024 12:00 AM 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 GERD (gastroesophageal reflux disease) Headache HTN (hypertension) Hyperlipidemia Malignant neoplasm (CMS/HCC) leukemia Motion sickness Peripheral vascular disease Stroke (CMS/HCC) TIA Past Surgical History: Procedure Laterality Date HX APPENDECTOMY HX CORONARY ARTERY BYPASS GRAFT HX PACEMAKER PLACEMENT NE CRTJ ALEN RODRIGUEZL XCP DIR ALEN CASAS NONAUTOG GRF Right 11/29/2024 ARTERIOVENOUS GRAFT INSERTION performed by Klarissa Flowers MD at [facility] MAIN OR Current Facility-Administered Medications: naloxone (NARCAN) 0.4 mg/mL injection 0.1-0.4 mg, 0.1-0.4 mg, IV, see admin instructions, Tigist Dodson PA replacement reminder - Potassium, 1 Each, See Admin Instructions, see admin instructions, Tigist Dodson PA replacement reminder-Magnesium, 1 Each, See Admin Instructions, see admin instructions, Tigist Dodson PA replacement reminder - Phosphorus, 1 Each, See Admin Instructions, see admin instructions, Tigist Dodson PA replacement reminder-Calcium, 1 Each, See Admin Instructions, see admin instructions, Tigist Dodson PA tamsulosin (FLOMAX) SR 24 hour capsule 0.4 mg, 0.4 mg, Oral, daily AFTER supper, Tigist Dodson PA, 0.4 mg at 12/04/24 1711 atorvastatin (LIPITOR) tablet 10 mg, 10 mg, Oral, daily BEDTIME, Tigist Dodson PA acetaminophen (TYLENOL) tablet 650 mg, 650 mg, Oral, every 6 hours PRN, Tigist Dodson PA ondansetron (ZOFRAN) 4 mg/2 mL injection 4 mg, 4 mg, IV, every 6 hours PRN, Tigist Dodson PA finasteride (PROSCAR) tablet 5 mg, 5 mg, Oral, daily, Tigist Dodson PA, 5 mg at 12/04/24 0944 heparin injection 5,000 Units, 5,000 Units, subCUT, every 8 hours, Tigist Dodson PA, 5,000 Units at 12/04/24 0550 hydrALAZINE (APRESOLINE) 20 mg/mL injection 10 mg, 10 mg, IV, every 4 hours PRN, Tigist Dodson PA dextrose 5 % - sodium chloride 0.9 % infusion, , IV, see admin instructions, Tigist Dodson PA dextrose 50% (D50) syringe 12.5 Gram, 12.5 Gram, IV, see admin instructions, Tigist Dodson PA dextrose 50% (D50) syringe 25 Gram, 25 Gram, IV, see admin instructions, Tigist Dodson PA glucagon HCL 1 mg/mL injection 1 mg, 1 mg, IM, see admin instructions, Tigist Dodson PA insulin lispro (HumaLOG,ADMELOG) injection 0-12 Units, 0-12 Units, subCUT, TID WITH meals, Tigist Dodson PA, 10 Units at 12/04/24 1153 insulin lispro (HumaLOG,ADMELOG) injection 0-6 Units, 0-6 Units, subCUT, daily BEDTIME, Tigist Dodson PA oxyCODONE-acetaminophen (PERCOCET) 5-325 mg per tablet 1 Tablet, 1 Tablet, Oral, every 4 hours PRN,Tigist Dodson PA [COMPLETED] calcium GLUCONATE 100 mg/mL (10%) injection 1,000 mg, 1,000 mg, IV, ONE time only, Suleman Reed MD, 1,000 mg at 12/04/24 0346 [COMPLETED] insulin regular (HumuLIN R,NovoLIN R) injection 10 Units, 10 Units, IV, ONE time only, Suleman Reed MD, 10 Units at 12/04/24 0407 [COMPLETED] dextrose 50% (D50) syringe 25 Gram, 25 Gram, IV, ONE time only, Suleman Reed MD, 25 Gram at 12/04/24 0347 [COMPLETED] dextrose 5 % bolus solution 120 mL, 120 mL, IV, ONE time only, Suleman Reed MD, Stopped at 12/04/24 0715 [COMPLETED] albuterol (PROVENTIL,VENTOLIN) 2.5 mg /3 mL (0.083 %) inhalation solution 10 mg, 10 mg,Inhalation, resp, one time only, Suleman Reed MD, 10 mg at 12/04/24 0356 aluminum - magnesium - simethicone (MYLANTA) 200-200-20 mg/5 mL oral suspension 20 mL, 20 mL, Oral,ONE time only, Suleman Reed MD cefePIME (MAXIPIME) 1,000 mg in sodium chloride 0.9% 50 mL IVPB (MBP), 1,000 mg, IV, every 24 hours, Walt Aguero MD, Stopped at 12/04/24 1746 [COMPLETED] perflutren lipid microspheres (DEFINITY) 1.1 mg/mL injection 1.3 mL, 1.3 mL, IV, intra-proc ONE time, Conrado Shearer MD, 0.26 mL at 12/04/24 0930 [COMPLETED] sodium chloride 0.9 % bolus solution 1,000 mL, 1,000 mL, See Admin Instructions, ONE time only, Samira Wagner DO, Last Rate: 2,000 mL/hr at 12/04/24 1228, 1,000 mL at 12/04/24 1228 [DISCONTINUED] cefePIME (MAXIPIME) 1 mg in sodium chloride 0.9 % 50 mL IVPB, 1 mg, IV, every 24 hours, Tigist Dodson PA [DISCONTINUED] VANCOMYCIN CONSULT TO PHARMACY, , See Admin Instructions, see admin instructions, Tigist Dodson PA [DISCONTINUED] aluminum - magnesium - simethicone (MYLANTA) 200-200-20 mg/5 mL oral suspension 20 mL, 20 mL, Oral, every 6 hours PRN, Suleman Reed MD [DISCONTINUED] aluminum - magnesium - simethicone (MYLANTA) 200-200-20 mg/5 mL oral suspension 20 mL, 20 mL, Oral, ONE time only, Suleman Reed MD [DISCONTINUED] vancomycin (VANCOCIN) 500 mg in sodium chloride 0.9% 100 mL IVPB (MBP), 500 mg, IV, ONE time only, Walt Aguero MD PLAN Insert midline and draw labs with IV start Kike Spence RN documented in this encounter Miscellaneous Notes * Care Plan - Sanchez Cormier GN - 12/11/2024 5:40 AM CDT Shift Summary Glucose levels increased significantly from 192 mg/dL to 299 mg/dL, indicating a need for monitoring and potential intervention. Mean arterial pressure showed a slight improvement from 62 MM HG to 66 MM HG. Hemoglobin and hematocrit levels were low, which may require further evaluation. High fall risk interventions were consistently completed, ensuring patient safety. Overall, the patient remained stable with no reported falls or injuries, but infection status and glucose levels require attention. Verbalizes/displays acceptable comfort level or baseline comfort level: No pain or discomfort was reported throughout the shift, indicating a maintained baseline comfort level. Infection Risk/Actual: Infection prevention, control, or resolution by discharge: The suspected infection status remained consistently positive throughout the shift, indicating no resolution yet. Safety/Fall: Absence of fall, injury, harm during hospitalization: High fall risk interventions were consistently completed, and no falls or injuries were reported during the shift. * Sohan Voss - Shana Florez RN - 12/10/2024 5:49 PM CDT Shift Summary Discharge criteria were met by 11:21 AM, indicating readiness for discharge. Insulin glargine was refused in the [facility] department. Sodium chloride 0.9% was administered in the [facility] department. Propofol and lidocaine 2% were administered in the [facility] department. Overall, the patient remained stable with no significant adverse events, and infection levels showed improvement. Verbalizes/displays acceptable comfort level or baseline comfort level: Pain levels remained at zero throughout the shift, with no expressions of discomfort or pain reported. Infection Risk/Actual: Infection prevention, control, or resolution by discharge: Suspected infection levels decreased from 2 to 1 by the end of the shift, indicating a positive trend towards infection resolution. Safety/Fall: Absence of fall, injury, harm during hospitalization: Safety measures were consistently maintained, with siderails up and safety checks completed, ensuring no falls or injuries occurred. Identify discharge needs upon admission and through discharge: Discharge criteria were met by 11:21AM, indicating readiness for discharge. Achieve optimal genitourinary and renal function by discharge or maintain baseline function: Renal function was maintained with dialysis throughout the shift, and genitourinary status remained withindefined limits. 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 Preferred Pharmacy: [facility] [address] [place] [address] [address] [facility] - [place], [place] - [address] Patient / Family Communications: Patient/Family Communications: Plan Discharge To Update (12/09/24844) Discharge Plan Agreed Upon: Patient;Spouse (12/08/24 111) Transportation Plan: Has discharge transport been arranged?: No (12/05/241700) IVY Olvera * Care Plan - Sanchez Cormier GN - 12/10/2024 5:20 AM CDT Shift Summary Mean arterial pressure decreased significantly by the end of the shift, indicating potential hemodynamic instability. Glucose levels decreased slightly but remained high. The patient consistently denied pain and remained alert throughout the shift. Lab results indicated a high white blood cell count and low red blood cell count, suggesting ongoing infection concerns. Overall, the patient maintained stable cognitive and neurological function with no signs of delirium. Verbalizes/displays acceptable comfort level or baseline comfort level: No pain or discomfort was reported throughout the shift, and the patient remained awake and alert, indicating effective pain management. Infection Risk/Actual: Infection prevention, control, or resolution by discharge: The suspected infection level remained stable throughout the shift, but lab results showed a high white blood cell count and low red blood cell count, indicating ongoing infection concerns. Maintain skin integrity and/or promote wound healing by discharge: Skin condition was within defined limits, and the patient was regularly repositioned to prevent pressure ulcers. Achieve optimal cognitive/perceptual/neurological function by discharge or maintain baseline function: Cognitive and neurological assessments remained stable with no signs of delirium or disorientation, maintaining baseline function. * Care Plan - Tara Vincent GN - 12/09/2024 6:20 PM CDT Shift Summary Midodrine was administered in [facility] [place] to address low MAP. Discharge planning was updated to reflect a plan for home discharge with family assistance. A high glucose level was recorded, necessitating monitoring and potential intervention. Pantoprazole was administered in [facility] [place]. Lab results indicated low iron and TIBC, with high ferritin levels, requiring further evaluation. Safety/Fall: Absence of fall, injury, harm during hospitalization: Safety checks were consistently completed throughout the shift, and the use of a gait belt during mobilization was maintained to mitigate fall risk. The fall risk was reviewed and agreed upon as high, with no incidents of falls or injuries reported during the shift. Identify discharge needs upon admission and through discharge: Discharge planning was updated with the plan to discharge home with family assistance, and patient/family communications were documented. Achieve optimal gastrointestinal function by discharge or maintain baseline function: Stool output was monitored, and a small amount of unformed stool was noted, indicating a need for continued observation of gastrointestinal function. 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 Patient will continue HD on his TTS schedule at [facility] at discharge. Preferred Pharmacy: [facility] [address] [place] [address] [address] [facility] - [place], [place] - [address] Patient / Family Communications: Patient/Family Communications: Plan Discharge To Update (12/09/24 3444) Discharge Plan Agreed Upon: Patient;Spouse (12/08/24 1110) Transportation Plan: Has discharge transport been arranged?: No (12/05/24 1703) IVY Olvera * Query - Jazmin Lema MD - 12/09/2024 11:52 AM CDT Please respond within 48 hours. Thank you! The authenticated query note is part of the Legal Health Record Patient Name: Nisa Renae Admission Date: 12/04/[address] [facility] #: [id number] Please continue to document the appropriate diagnosis for the clinical information below, in your Progress Notes, including through the Discharge Summary. Please keep the Problem List updated for continuity of care. (.hprobl or .probhospall) The diagnosis of acute cystitis is documented in the progress note on 12/04/24 and subsequent progress notes. Clinical indicators and/or treatment for this patient include: Progress note on 12/04/24: Same day CCM update: Treating acute cystitis. Urine culture pending. Progress note on 12/06/24: Current care plan summary: Continue with ceftriaxone for severe sepsis and septic shock. UA was abnormal but urine culture without growth. Will plan for 5 days of empiric coverage. Active problems: Acute cystitis Lab: Latest Reference Range & Units 12/04/24 08:28 COLOR UA Pale to Dark Yellow Yellow CLARITY UA Clear Cloudy SPECIFIC GRAVITY UA 1.003 - 1.035 1.039 PH UA 5.0 - 8.0 6.0 LEUKOCYTE ESTERASE UA Negative 3+ NITRITE UA Negative Negative PROTEIN UA Negative 3+ GLUCOSE UA Negative 1+ KETONES UA Negative 1+ UROBILINOGEN UA <2.0 mg/dL <2.0 BILIRUBIN UA Negative Negative BLOOD UA Negative 3+ WBC UA 0 - 2 /hpf >100 RBC UA 0 - 2 /hpf 51-100 BACTERIA UA Negative /hpf 2+ EPITHELIAL CELLS, URINE 0 - 5 /hpf 0-5 Urine culture on 12/05/24: no growth Treatment: cefTRIAXone (ROCEPHIN) 2,000 mg in sodium chloride 0.9% 50 mL IVPB (MBP) Dose: 2,000 mg Freq: EVERY 24 HOURS (DAILY) Route: IV Last Dose: Stopped (12/09/24 1150) Start: 12/06/24 1100 End: 12/11/24 0859 cefePIME (MAXIPIME) 1,000 mg in sodium chloride 0.9% 50 mL IVPB (MBP) Dose: 1,000 mg Freq: EVERY 24 HOURS Route: IV Last Dose: Stopped (12/04/24 1746) Start: 12/04/24 1200 End: 12/06/24 1050 Note: To answer the following question(s), please click EDIT button on the activity bar then click F2 in front of the highlighted area(s). Question: Clarify if the diagnosis of Acute cystitis was: Present (or suspected) during this encounter - treated and/or monitored Ruled out after study (diagnosis was not present) Other (Specify) Answer: Ruled out after study (diagnosis was not present) In responding to this query, please exercise your independent professional judgment. Please be advised that coding regulations for inpatient admissions allow the physician to document presumptive/probable diagnoses. The fact that a question is asked does not imply that any particular answer is desired or expected. Thank you. This query was initiated by Umm Pal RN. For questions on this coding query please contact me at: Umm Pal RN, BSN Senior Clinical Sql Report Writer Clinical Documentation Internal Pool [email or web address] * Care Plan - Odette Patterson RN - 12/09/2024 6:02 AM CDT Shift Summary Safety checks were completed, and the patient was monitored for fall risk with no incidents. The patient was repositioned multiple times to ensure comfort and prevent pressure sores. Hygiene care was declined during the shift. Glucose levels were elevated, with a significant increase noted during the shift. Overall, the patient remained stable with no significant changes in condition. Verbalizes/displays acceptable comfort level or baseline comfort level: No pain or discomfort was reported throughout the shift, maintaining a consistent level of comfort. Infection Risk/Actual: Infection prevention, control, or resolution by discharge: The suspected infection level remained stable throughout the shift, with no changes noted. Safety/Fall: Absence of fall, injury, harm during hospitalization: The patient was consistently monitored for fall risk, and no falls or injuries occurred during the shift. Achieve optimal genitourinary and renal function by discharge or maintain baseline function: Renal function remained impaired, and dialysis was consistently managed throughout the shift. Achieve optimal cognitive/perceptual/neurological function by discharge or maintain baseline function: Cognitive and neurological functions were stable, with the patient remaining alert and oriented throughout the shift. * Care Plan - Rahul Mays LPN - 12/08/2024 5:39 PM CDT Shift Summary Blood cultures showed negative preliminary results, indicating a low likelihood of infection. Ambulation was performed with supervision and assistive devices, despite a high fall risk. Discharge planning was discussed and agreed upon with family involvement, planning for home discharge with assistance. Heparin was administered in the [facility] department. Overall, the patient showed stable progress with effective pain management and discharge planning. Verbalizes/displays acceptable comfort level or baseline comfort level: Pain levels increased from no pain in the morning to a moderate level of 5 by the afternoon, with oxyCODONE-acetaminophen administered in the [facility] department for relief. Infection Risk/Actual: Infection prevention, control, or resolution by discharge: Blood cultures are in progress with negative preliminary results, indicating a low likelihood of infection. Safety/Fall: Absence of fall, injury, harm during hospitalization: High fall risk was noted, but ambulation was successfully performed with supervision and assistive devices. Identify discharge needs upon admission and through discharge: Discharge planning involved family discussions, with a plan to discharge home with family assistance agreed upon. 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 SW will await therapy recommendations and follow up with choices should placement be the DC recommendation. At this time, pt plans to DC home once medically ready. CM will continue to follow and assist with pt until DC as needed Referrals Status: Follow-up on Referrals Sent: No (12/05/241700) Preferred Pharmacy: [facility] [address] [place] [address] [address] [facility] - [place], [place] - [address] Patient / Family Communications Resources Provided Transportation Plan: Has discharge transport been arranged?: No (12/05/241700) Follow Up Appointments Scheduled IVY Osuna * Care Plan - Odette Patterson RN - 12/08/2024 6:14 AM CDT Shift Summary Mean arterial pressure decreased significantly during the shift, indicating potential hemodynamic instability. The patient initially required assistance for transfers but later demonstrated independence, indicating improved mobility. The WBC count was elevated, suggesting ongoing infection, and requires continued monitoring. Skin integrity was maintained with regular repositioning and hygiene care. Overall, the patient remained stable with no reported pain or discomfort, but infection markers need close observation. Verbalizes/displays acceptable comfort level or baseline comfort level: No pain or discomfort was reported throughout the shift, and the patient was able to sleep intermittently without pain interventions. Infection Risk/Actual: Infection prevention, control, or resolution by discharge: The suspected infection level remained constant throughout the shift, and the WBC count was elevated in the latest lab results. Safety/Fall: Absence of fall, injury, harm during hospitalization: Safety checks were completed, and the patient was assisted with transfers, showing improvement from needing standby assistance to being independent. Infection, Risk/Actual: Infection Prevention/Resolution/Control: The WBC count was high, indicatingongoing infection, and the patient was monitored closely for changes. Maintain skin integrity and/or promote wound healing by discharge: Skin remained within defined limits, and regular repositioning was performed to prevent pressure injuries. * Care Plan - Rahul Mays LPN - 12/07/2024 5:40 PM CDT Shift Summary Hemodialysis was performed with a fluid removal of 2300 mL. Blood cultures are in progress with negative preliminary results. The patient remained alert and responsive, with no reported pain or discomfort. Safety checks were completed regularly, and the patient was assisted with mobility. Overall, the patient maintained stability with ongoing dialysis and infection monitoring. Verbalizes/displays acceptable comfort level or baseline comfort level: No pain or discomfort was reported throughout the shift, and the patient remained alert and responsive, although slightly sleepy but easy to arouse at noon. Infection Risk/Actual: Infection prevention, control, or resolution by discharge: Blood cultures are in progress with negative preliminary results, and the suspected infection level remained stable throughout the shift. Safety/Fall: Absence of fall, injury, harm during hospitalization: Safety checks were completed regularly, and the patient was consistently assisted with mobility, maintaining a high fall risk designation. Identify discharge needs upon admission and through discharge: The plan of care was reviewed multiple times with the patient and healthcare team, and family involvement was noted at the bedside. Achieve optimal genitourinary and renal function by discharge or maintain baseline function: The patient underwent hemodialysis with a fluid removal of 2300 mL, and voiding was minimal, consistent with dialysis treatment. * Care Plan - Odette Patterson RN - 12/07/2024 6:12 AM CDT Shift Summary Heparin rate was increased during the shift. Glucose level was monitored and found to be within normal range. Vital signs showed a decrease in pulse rate but an increase in mean arterial pressure. The patient was observed sleeping comfortably, indicating no pain or discomfort. Overall, the patient's condition remained stable with no significant changes in infection status orgenitourinary function. Verbalizes/displays acceptable comfort level or baseline comfort level: No pain or discomfort was reported throughout the shift, and the patient was observed sleeping peacefully during checks, indicating a maintained comfort level. Infection Risk/Actual: Infection prevention, control, or resolution by discharge: The suspected infection level remained constant throughout the shift, with no changes noted. Safety/Fall: Absence of fall, injury, harm during hospitalization: High fall risk interventions were completed, and no falls or injuries were reported during the shift. Achieve optimal genitourinary and renal function by discharge or maintain baseline function: The patient remained on dialysis with no changes in genitourinary status, maintaining baseline function. Infection, Risk/Actual: Infection Prevention/Resolution/Control: The suspected infection level remained stable throughout the shift, with no resolution or escalation observed. * Care Plan - Karlos Rees RN - 12/06/2024 11:40 AM CDT Fish Stringer Assembler Discharge Planning Plan Discharge To: Inpatient Rehab Facility (12/05/241700) Plan Discharge To - Alternate: [facility] (12/05/241700) CM continues to follow for DC planning needs. Patient needs PT/OT orders for DC planning for possible IP Rehab. On Room air and heparin gtt currently. Referrals Status: Follow-up on Referrals Sent: No (12/05/241700) Preferred Pharmacy: [facility] - [place], [place] - [address] [facility] - [place], [place] - [address] Patient / Family Communications Resources Provided Transportation Plan: Has discharge transport been arranged?: No (12/05/241700) Follow Up Appointments Scheduled Karlos Rees RN * Care Plan - Scarlett Burnham RN - 12/06/2024 6:08 AM CDT Shift Summary Heparin was administered twice during the shift, with rate increases noted. Atorvastatin and insulin glargine were administered at 9:07 PM. Unfractionated heparin monitoring indicated subtherapeutic anti-Xa levels. The patient's blood pressure and mean arterial pressure showed fluctuations, with some periods of abnormal readings. Overall, the patient remained stable with no reported pain or falls, and infection levels were controlled. Verbalizes/displays acceptable comfort level or baseline comfort level: No pain or discomfort was reported throughout the shift, indicating a maintained comfort level. Infection Risk/Actual: Infection prevention, control, or resolution by discharge: The suspected infection level remained stable at 2 throughout the shift, with no indication of worsening. Safety/Fall: Absence of fall, injury, harm during hospitalization: High fall risk interventions were consistently completed, and no falls or injuries were reported during the shift. * Treatment Plan - Hussain Walker, PHARMACIST - 12/04/2024 8:45 PM CDT [facility] Adult Heparin Anti-Xa Monitoring Protocol [facility] ORDERS ARE ENTERED ???PER PROTOCOL?? Nursing Orders: Heparin must be hung as primary IV on dedicated IV site, unless discussed with physician and exception is authorized Obtain an actual weight, not stated weight, for pharmacy verification Do not give IM injections unless credentialed prescriber is alerted and chooses to proceed. Exception: Patient may receive vaccinations without contacting provider. RN to hold pressure to site post administration for 2 minutes Call credentialed prescriber for any evidence of hematoma, decrease in hemoglobin of 2 gram/dL or more, or with any acute change in mental status When programming the smart pump, refer to weight in eMAR order (this may not correlate with patient's current weight) Verify weight in eMAR order matches weight in smartpump Enter actual volume infused into flowsheet directly from smart pump upon clearing the pump volume Laboratory Orders: Baseline: Unfractionated heparin monitoring (Anti-Xa), PTT, and CBC without differential if not obtained in the last 72 hours before starting IV Heparin Infusion monitoring: Timed Anti-Xa every 6 hours after the initiation of infusion, change in rate or bolus until 2 consecutive Anti-Xa are in therapeutic range PTT monitoring should be used instead of Anti-xa monitoring for the following: Facility only has PTT lab monitoring capabilities Patients who have received a Xa inhibitor Direct Oral Anticoagulant (DOAC) medication (rivaroxaban,apixaban, edoxaban), therapeutic Enoxaparin, or Fondaparinux within the last 48 hours Daily once stable: Anti-Xa daily while on heparin once stable Minimum every 3 days: CBC without differential drawn at minimum of every 3 days while on heparin Medication Orders: Discontinue ALL other orders for subcutaneous, oral or IV anticoagulants, for example but not limited to: enoxaparin (LOVENOX), or fondaparinux (ARIXTRA) or oral anticoagulants dabigatran (PRADAXA), apixaban (ELIQUIS), edoxaban (SAVAYSA) or rivaroxaban (XARELTO). This protocol is not recommended for use with continuous alteplase infusions. Contact provider for additional orders. Pharmacist to confirm indication to ensure correct protocol table is followed, if unclear from the physician order or via chart review Pharmacist to verify heparin rate changes based on lab results in the protocol tables below. Pharmacist may update the order and MAR to match the current infusion rate. Dosing Weight: Obtain using a scale, NOT stated weight order-specific heparin dosing weight to be calculated by pharmacist. If weight <= 100 kg, ACTUAL body weight will be used to perform dose calculations If weight exceeds 100 kg, an ADJUSTED body weight will be used to perform dose calculations Initial dosing weight to be used for heparin infusion for the duration of therapy. Caution should be used by the RN to observe that this is the weight programmed in the smart pump. DVT/PE Heparin Infusion (usual indication for VTE: PE/DVT) Per provider order - bolus or no bolus Adjusted body weight used for pts >100 kg Initial Bolus Dose 80 units/kg (MAX 10,000 units) Initial Infusion 18 units/kg/hour Anti-Xa (Units/mL) Bolus (if boluses are authorized by physician per infusion order) Hold Infusion IV infusion Change Next Level Less than 0.2 60 units/kg 0 min Increase heparin dose by 3 units/kg/hr 6 hours 0.2 - 0.29 30 units/kg 0 min Increase heparin dose by 2 units/kg/hr 6 hours 0.3 - 0.7 NO CHANGE Every 6 hours x 2 then every AM 0.71 - 0.8 none 0 min Decrease heparin dose by 1 units/kg/hr 6 hours 0.81 - 0.9 none 30 min Decrease heparin dose by 2 units/kg/hr 6 hours Greater than 0.9 none 60 min Decrease heparin dose by 3 units/kg/hr 6 hours Cardiac Heparin Infusion (usual indication: Atrial fibrillation, mechanical valves, ACS, high bleedrisk) Per provider order - bolus or no bolus Adjusted body weight used for pts >100 kg Initial Bolus Dose Atrial fibrillation, mechanical valves, high bleed risk: 60 units/kg (MAX 7500 units) ACS: 60 units/kg (MAX 4000 units) Initial Infusion Atrial fibrillation, mechanical valves, high bleed risk: 15 units/kg/hour ACS: 12 units/kg/hour (MAX 1000 units/hour) Anti-Xa (Units/mL) Bolus (if boluses are authorized by physician per infusion order) Hold Infusion IV infusion Change Next Level Less than 0.2 30 units/kg 0 min Increase heparin dose by 2 units/kg/hr 6 hours 0.2 - 0.29 15 units/kg 0 min Increase heparin dose by 1 units/kg/hr 6 hours 0.3 - 0.6 NO CHANGE Every 6 hours x 2 then every AM 0.61 - 0.7 none 0 min Decrease heparin dose by 1 units/kg/hr 6 hours 0.71 - 0.9 none 30 min Decrease heparin dose by 2 units/kg/hr 6 hours Greater than 0.9 none 60 min Decrease heparin dose by 3 units/kg/hr 6 hours * Care Plan - Kike Spence, SUDARSHAN - 12/04/2024 7:59 PM CDT Problem: Infection, Risk/Actual (Adult) Goal: Infection, Risk/Actual: Infection Prevention/Resolution/Control Description: Patient will demonstrate the desired outcomes. Note: Nisa 's midline IV will remain free from infection. * Care Plan - Cristine Mckay RN - 12/04/2024 4:44 PM CDT Problem: Discharge Planning Goal: Identify discharge needs upon admission and through discharge Description: Outcome: Progressing Care Management Initial Assessment Initial Discharge Planning Assessment completed. Discussed Care Management's role and Discharge planning. Plan Discharge To: Inpatient Rehab Facility Plan Discharge To - Alternate: [facility] Facility Does the patient have family and/or a caregiver that is willing, able and available to assist if needed? Yes - Name/Relation:May his Comments: Patient is on dialysis now with weakness and shortness of breath. Patient Discharge Planning Goal: to get stronger Patient will potentially discharge to a SNF/NH? No Care Management visited with: Marco via in person. Prior to admission, patient resides at: own home. Patient resides in a 1 story home with ramp over the stairs to enter. Patient's bedroom and bathroom are located on the main floor. Prior to admission, living arrangements: spouse. Prior to admission, patient's functional level:requires assistance; uses cane for mobility; needs assistance with iADLs: meal preparation and housekeeping Community Ambulator: yes Prior to admission, the patient has the following DME? Yes cane Services in the home/community: none Serviced by n/a Receives hemodialysis? Yes Maintenance hemodialysis occurs on days , and Friday with [facility] in [place] [employer]. Patient has Medicare A and B and [employer] Emergency contact(s): Extended Emergency Contact Information Primary Emergency Contact: MAY RENAE Mobile Relation: Spouse Secondary Emergency Contact: May Renae [address] [address] [place] [address] [place], [place] [id number] [place] [address] Mobile Relation: Spouse Prescription coverage: yes Preferred Pharmacy verified: [facility] - [place], [place] - [address] [facility] - [place], [place] - [address] Insurance coverage verified: Payor: [employer] / Plan: VA CCN OPTUM / Product Type: VA/ Secondary Insurance:N/A Patient has Medicare A and B and [employer] Medicare [id number] and [employer]. [id number] Medicaid Status: NA Has VA Benefits: yes Employment Status: retired PCP verified as: Paula Sandoval MD Patient has not had a stay at an acute care hospital in the last 30 days. Recent Falls?: Plan for transportation at discharge: his Care Management contact information provided. Care Management will continue to follow and assist asneeded. documented in this encounter Plan of Treatment Upcoming Encounters Date Type Department Care Team (Late st Contact Info) Description 12/23/2024 12:00 PM CDT Office Visit [facility] [place] [address] [place] [address] Umm Dotson, [address] [place] [address] 01/21/2025 11:00 AM CDT Office Visit [facility] [address] [place] [address] Lyndsey Dorsey, INCOME TAX ADJUSTER [address] [place] [address] Scheduled Referrals Name Type Priority Associated Diagnoses Order Schedule AMB REFERRAL TO [facility] Outpatient Referral Routine Severe sepsis with septic shock (CMS/HCC) Melena Acute blood loss anemia Ordered: 12/11/2024 AMB REFERRAL TO GASTROENTEROLOGY Outpatient Referral Routine Severe sepsis with septic shock ([facility]/HCC) Melena Acute blood loss anemia Ordered: 12/11/2024 documented as of this encounter Procedures Procedure Name Priority Date/Time Associated Diagnosis Comments TELEMETRY REPORT 12/13/2024 3:48 PM CDT POC GLUCOSE Routine 12/11/2024 5:46 PM CDT POC GLUCOSE Routine 12/11/2024 12:30 PM CDT HEMODIALYSIS Routine 12/11/2024 12:00 PM CDT DIFFERENTIAL, MANUAL Routine 12/11/2024 10:03 AM CDT CBC WITH DIFFERENTIAL Routine 12/11/2024 10:03 AM CDT DIFFERENTIAL, MANUAL Routine 12/11/2024 8:58 AM CDT CBC WITH DIFFERENTIAL Routine 12/11/2024 8:58 AM CDT RENAL FUNCTION PANEL Routine 12/11/2024 8:58 AM CDT POC GLUCOSE Routine 12/11/2024 7:48 AM CDT POC GLUCOSE Routine 12/11/2024 2:54 AM CDT POC GLUCOSE Routine 12/10/2024 8:34 PM CDT HEMOGLOBIN AND HEMATOCRIT Routine 2024 8:11 PM CDT POC GLUCOSE Routine 12/10/2024 5:45 PM CDT POC GLUCOSE Routine 12/10/2024 12:50 PM CDT UPPER ENDOSCOPY REPORT 11:09 AM CDT PATHOLOGY Pathology 12/10/2024 11:00 AM CDT ESOPHAGOGASTRODUODENOSCOPY 12/10 8:20 AM CDT POC GLUCOSE Routine 12/10/2024 7:42 AM CDT DIFFERENTIAL, MANUAL Routine 12/10/2024 3:34 AM CDT CBC WITH DIFFERENTIAL Routine 12/10/2024 3:34 AM CDT POC GLUCOSE Routine 12/10/2024 1:54 AM CDT POC GLUCOSE Routine 12/09/2024 8:36 PM CDT POC GLUCOSE Routine 12/09/2024 5:54 PM CDT POC GLUCOSE Routine 12/09/2024 11:25 AM CDT DIFFERENTIAL, MANUAL Routine 12/09/2024 4:07 AM CDT CBC WITH DIFFERENTIAL Routine 12/09/2024 4:07 AM CDT POC GLUCOSE Routine 12/09/2024 3:20 AM CDT POC GLUCOSE Routine 12/08/2024 9:15 PM CDT POC GLUCOSE Routine 12/08/2024 5:27 PM CDT POC GLUCOSE Routine 12/08/2024 12:39 PM CDT OCCULT BLOOD GUAIAC DIAGNOSTIC Routine 0 12/08/2024 11:32 AM CDT POC GLUCOSE Routine 12/08/2024 7:34 AM CDT DIFFERENTIAL, MANUAL Routine 12/08/2024 4:23 AM CDT IRON, TIBC, AND PERCENT SATURATION Routine 12/08/2024 4:23 AM CDT CBC WITH DIFFERENTIAL Routine 12/08/2024 4:23 AM CDT FERRITIN Routine 12/08/2024 4:23 AM CDT COMPREHENSIVE METABOLIC PANEL Routine 4:23 AM CDT POC GLUCOSE Routine 12/08/2024 2:57 AM CDT POC GLUCOSE Routine 12/07/2024 9:25 PM CDT POC GLUCOSE Routine 12/07/2024 5:15 PM CDT POC GLUCOSE Routine 12/07/2024 11:48 AM CDT POC GLUCOSE Routine 12/07/2024 8:15 AM CDT DIFFERENTIAL, MANUAL Routine 12/07/2024 6:58 AM CDT UNFRACTIONATED HEPARIN ACTIVITY Timed Study 12/07/2024 6:58 AM CDT CBC WITH DIFFERENTIAL Routine 12/07/2024 6:58 AM CDT COMPREHENSIVE METABOLIC PANEL Routine 6:58 AM CDT POC GLUCOSE Routine 12/07/2024 1:14 AM CDT UNFRACTIONATED HEPARIN ACTIVITY Timed Study 12/06/2024 11:44 PM CDT UNFRACTIONATED HEPARIN ACTIVITY Timed Study 12/06/2024 5:51 PM CDT POC GLUCOSE Routine 12/06/2024 4:30 PM CDT OT EVAL AND TREAT Routine 12/06/2024 2:09 PM CDT PT EVAL AND TREAT Routine 12/06/2024 2:09 PM CDT LACTIC ACID Stat 12/06/2024 1:48 PM CDT POC GLUCOSE Routine 12/06/2024 10:59 AM CDT UNFRACTIONATED HEPARIN ACTIVITY Timed Study 12/06/2024 10:12 AM CDT POC GLUCOSE Routine 12/06/2024 6:54 AM CDT DIFFERENTIAL, MANUAL Routine 12/06/2024 4:51 AM CDT CBC WITH DIFFERENTIAL Routine 12/06/2024 4:51 AM CDT LIPASE Routine 12/06/2024 4:51 AM CDT COMPREHENSIVE METABOLIC PANEL Routine 4:51 AM CDT UNFRACTIONATED HEPARIN ACTIVITY Timed Study 12/06/2024 3:42 AM CDT POC GLUCOSE Routine 12/06/2024 1:58 AM CDT POC GLUCOSE Routine 12/05/2024 9:06 PM CDT XR ABDOMEN FOR FEEDING TUBE 1 VW Stat 12/05/2024 7:48 PM CDT UNFRACTIONATED HEPARIN ACTIVITY Timed Study 12/05/2024 7:40 PM CDT LACTIC ACID Stat 12/05/2024 4:52 PM CDT XR CHEST PA OR AP 1 VW Routine 3:36 PM CDT XR ABDOMEN 1 VW Routine 12/05/2024 3:36 PM CDT POC GLUCOSE Routine 12/05/2024 1:49 PM CDT URINE CULTURE Routine 12/05/2024 10:28 AM CDT UNFRACTIONATED HEPARIN ACTIVITY Timed Study 12/05/2024 8:55 AM CDT BASIC METABOLIC PANEL PLUS Routine 12/05 8:54 AM CDT TROPONIN Stat 12/05/2024 8:54 AM CDT POC GLUCOSE Routine 12/05/2024 8:12 AM CDT EKG 12-LEAD Stat 12/05/2024 8:05 AM CDT POC GLUCOSE Routine 12/05/2024 3:30 AM CDT DIFFERENTIAL, MANUAL Routine 12/05/2024 3:27 AM CDT UNFRACTIONATED HEPARIN ACTIVITY Timed Study 12/05/2024 3:27 AM CDT CBC WITH DIFFERENTIAL Routine 12/05/2024 3:27 AM CDT BASIC METABOLIC PANEL Routine 12/05/2024 3:27 AM CDT POC GLUCOSE Routine 12/05/2024 2:09 AM CDT POC GLUCOSE Routine 12/05/2024 12:12 AM CDT POC GLUCOSE Routine 12/04/2024 9:17 PM CDT UNFRACTIONATED HEPARIN ACTIVITY Routine 12/04/2024 9:11 PM CDT CBC WITHOUT DIFFERENTIAL Routine 025 9:11 PM CDT LACTIC ACID Stat 12/04/2024 7:41 PM CDT TROPONIN Routine 12/04/2024 7:41 PM CDT COMPREHENSIVE METABOLIC PANEL Stat 7:41 PM CDT EKG 12-LEAD Routine 12/04/2024 5:59 PM CDT POC GLUCOSE Routine 12/04/2024 4:47 PM CDT POC GLUCOSE Routine 12/04/2024 2:07 PM CDT POC GLUCOSE Routine 12/04/2024 11:46 AM CDT ECHOCARDIOGRAM W/ CONTRAST AGENT Routine 12/04/2024 10:45 AM CDT MRSA PCR RAPID SCREEN Routine 12/04/2024 8:29 AM CDT URINALYSIS W/REFLEX MICROSCOPIC Routine 12/04/2024 8:28 AM CDT TROPONIN 6 HR, 5TH GEN Timed Study 7:50 AM CDT BLOOD CULTURE Routine 12/04/2024 7:50 AM CDT BLOOD CULTURE Routine 12/04/2024 7:50 AM CDT BLOOD CULTURE Routine 12/04/2024 7:42 AM CDT BLOOD CULTURE Routine 12/04/2024 7:42 AM CDT POC GLUCOSE Routine 12/04/2024 7:37 AM CDT EKG 12-LEAD Routine 12/04/2024 4:20 AM CDT TROPONIN 2 HR, 5TH GEN Timed Study 3:33 AM CDT DIFFERENTIAL, MANUAL Routine 12/04/2024 3:33 AM CDT CBC WITH DIFFERENTIAL Routine 12/04/2024 3:33 AM CDT TROPONIN BASELINE, 5TH GEN Stat 12/04 1:57 AM CDT PROCALCITONIN Routine 12/04/2024 1:57 AM CDT VANCOMYCIN LEVEL RANDOM Routine 12/05/19 1:57 AM CDT BASIC METABOLIC PANEL Routine 12/04/2024 1:57 AM CDT documented in this encounter Results * TELEMETRY REPORT (12/13/2024 3:48 PM CDT) us Provider Scanning ECG ORDERABLES Final Result * POC GLUCOSE (12/11/2024 5:46 PM CDT) [facility] GLUCOSE POC 99 74 - 99 mg/dL 12/11/2024 5:46 PM CDT [facility] SPECIMEN SOURCE, GLUCOSE POC Capillary 12/11/2024 5:46 PM CDT [facility] Blood, whole 12/11/2024 5:46 PM CDT 12/11/2024 6:17 PM CDT Ruperto oGmez MD POINT OF CARE TESTING Fi nal Result Performing Organization Address [facility] Co de Phone Number [facility] CLIA # [id number] [address] [place] [address] * (ABNORMAL) POC GLUCOSE (12/11/2024 12:30 PM CDT) [facility] GLUCOSE POC 119(H) 74 - 99 mg/dL 12/11/2024 12:30 PM CDT [facility] SPECIMEN SOURCE, GLUCOSE POC Venous 12/11/2024 12:30 PM CDT [facility] Blood, whole 12/11/2024 12:3 0 PM CDT 12/11/2024 12:38 PM CDT Ruperto Gomez MD POINT OF CARE TESTING Fi nal Result Performing Organization Address [facility] Co de Phone Number [facility] CLIA # [id number] [address] [address] [place] [address] * HEMODIALYSIS (12/11/2024 12:00 PM CDT) Narrative [facility] - 12/11/2024 12:00 PM CDT Jim Farooq MD 12/11/2024 12:22 PM [facility] - Procedure Note Primary Information Systems Technician: Dr. Ro West PROCEDURE: Intermittent Hemodialysis INDICATION: end stage renal disease on hemodialysis Procedure: Utilizing the patient's RIJ Tunneled hemodialysis cath (has developing LUE arteriovenous graft) as a vascular access, the patient was initiated on hemodialysis. Dialysis is planned for 4 hours. Blood flow of 400 ml per minute and Dialysate flow of 600 ml per minute were prescribed. The bath used was 3 mEq/L potassium, 3 mEq/L calcium, 140 mEq/L sodium and 35 mEq/L bicarbonate. UF goal: 1L, BP stable. Revaclear 400 hollow fiber dialyzer was used. No heparin was used for anticoagulation. No complications have been encountered to this point. I was present during dialysis, and was available for the entirety of the dialysis treatment. # Compliant with frequency and duration of dialysis: yes Physical Exam: BP 128/50 (BP Location: Left arm, Patient Position (BP): Sitting) Pulse 64 Temp 97.6 F (36.4 C) (Oral) Resp 19 Ht 5' 11 (1.803 m) Wt 100 kg (220 lb 7.4 oz) SpO2 96% BMI 30.75 kg/m Sitting up in chair no complaints, compression stockings in place. Assesment and Plan: ESRD: on HD per his Friday, Friday and Friday outpatient schedule. Will see on HD days while inpatient. Anemia of chronic kidney disease Hgb less than goal Had egd yesterday Dose epogen stimulating agent Iron stores adequate tsat 29% Addy Jacobs NP [facility] 12/11/24, 12:00 PM us Dustin Michel ANP DIALYSIS ORDERABLES Final Res ult [facility] CLIA # [id number] [address] [place] [phone] * (ABNORMAL) MANUAL DIFFERENTIAL (12/11/2024 10:03 AM CDT) SEGMENTED NEUTROPHILS 3(L) 36 - 66 % 12/11/2024 11:25 AM CDT [facility] LYMPHOCYTES RELATIVE 97(H) 24 - 44 % 12/11/2024 11:25 AM CDT [facility] PLATELET EST. Decreased 12/11/2024 11:25 AM CDT [facility] NEUTROPHILS ABSOLUTE COUNT 1.78(L) 2.00 - 8.00 K/uL 12/11/2024 11:25 AM CDT [facility] LYMPHOCYTES ABSOLUTE 57.52(H) 1.20 - 4.00 K/uL 12/11/2024 11:25 AM CDT [facility] ATYPICAL LYMPHS ABSOLUTE 12/11/2024 11:25 AM CDT [facility] ANISOCYTOSIS 2+ /hpf 12/11/2024 11:25 AM CDT [facility] POIKILOCYTES 1+ /hpf 12/11/2024 11:25 AM CDT [facility] MACROCYTES 1+ /hpf 12/11/2024 11:25 AM CDT [facility] TOTAL CELLS COUNTED IN DIFF 100 12/11/2024 11:25 AM T [facility] Blood Venipuncture / Unknown 12/11/2024 10:03 AM CDT 12/11/2024 10:37 AM CDT Ruperto Gomez MD HEMATOLOGY ORDERABLES CO M Final Result Performing Organization Address City/State/[facility] Co de Phone Number [facility] CLIA # [id number] [address] [place] [phone] * (ABNORMAL) CBC WITH DIFFERENTIAL (12/11/2024 10:03 AM CDT) WBC 59.3(H) 4.8 - 10.8 K/uL 12/11/2024 11:25 AM CDT [facility] RBC 2.30(L) 4.60 - 6.20 M/uL 12/11/2024 11:25 AM CDT [facility] HEMOGLOBIN 7.3(L) 14.0 - 18.0 g/dL 12/11/2024 11:25 AM CDT [facility] HEMATOCRIT 23.5(L) 41.0 - 53.0 % 12/11/2024 11:25 AM CDT [facility] MCV 102.2 84.0 - 103.0 fL 12/11/2024 11:25 AM CDT [facility] MCH 31.7 27.0 - 34.0 pg 12/11/2024 11:25 AM CDT [facility] MCHC 31.1 30.0 - 35.0 g/dL 12/11/2024 11:25 AM CDT [facility] PLATELETS 72(L) 140 - 440 K/uL 12/11/2024 11:25 AM CDT [facility] MPV 11.3 8.9 - 12.8 fL 12/11/2024 11:25 AM CDT [facility] RDW 18.3(H) 11.0 - 14.5 % 12/11/2024 11:25 AM T [facility] RDW-STDEV 67.4(H) 37.0 - 54.0 fL 12/11/2024 11:25 AM T [facility] SMEAR REVIEWED: - See Manual Diff. 12/11/2024 11:25 AM T [facility] Blood Venipuncture / Unknown 12/11/2024 10:03 AM CDT 12/11/2024 10:37 AM CDT Ruperto Gomez MD HEMATOLOGY ORDERABLES Fi nal Result [facility] CLIA # [id number] [address] [place] [phone] * (ABNORMAL) MANUAL DIFFERENTIAL (12/11/2024 8:58 AM CDT) SEGMENTED NEUTROPHILS 4(L) 36 - 66 % 12/11/2024 10:23 AM T [facility] LYMPHOCYTES RELATIVE 95(H) 24 - 44 % 12/11/2024 10:23 AM CDT [facility] EOSINOPHILS RELATIVE 1 0 - 3 % 12/11/2024 10:23 AM T [facility] PLATELET EST. Decreased 12/11/2024 10:23 AM CDT [facility] NEUTROPHILS ABSOLUTE COUNT 2.98 2.00 - 8.00 K/uL 12/11/2024 10:23 AM T [facility] LYMPHOCYTES ABSOLUTE 70.68(H) 1.20 - 4.00 K/uL 12/11/2024 10:23 AM CDT [facility] ATYPICAL LYMPHS ABSOLUTE 12/11/2024 10:23 AM T [facility] EOSINOPHILS ABSOLUTE 0.74(H) 0.00 - 0.70 K/uL 12/11/2024 10:23 AM T [facility] ANISOCYTOSIS 2+ /hpf 12/11/2024 10:23 AM T [facility] POIKILOCYTES 1+ /hpf 12/11/2024 10:23 AM T [facility] TOTAL CELLS COUNTED IN DIFF 100 12/11/2024 10:23 AM T [facility] Blood Venipuncture / Unknown 12/11/2024 8:58 AM CDT 12/11/2024 9:25 AM CDT us Dustin Michel ANP HEMATOLOGY ORDERABLES COM Fin al Result [facility] CLIA # [id number] [address] [place] [phone] * (ABNORMAL) RENAL FUNCTION PANEL (12/11/2024 8:58 AM CDT) SODIUM 134(L) 136 - 145 mmol/L 12/11/2024 9:55 AM CDT [facility] POTASSIUM 4.2 3.5 - 5.1 mmol/L 12/11/2024 9:55 AM CDT [facility] CHLORIDE 96(L) 98 - 107 mmol/L 12/11/2024 9:55 AM CDT [facility] CO2 22 22 - 29 mmol/L 12/11/2024 9:55 AM CDT [facility] CALCIUM 8.2(L) 8.8 - 10.2 mg/dL 12/11/2024 9:55 AM CDT [facility] BUN 59(H) 8 - 23 mg/dL 12/11/2024 9:55 AM CDT [facility] CREATININE 5.39(H) 0.67 - 1.17 mg/dL 12/11/2024 9:55 AM CDT [facility] Comment:The GFR result is no t clinically significant on patients <18 or >70 years of age. GLUCOSE 196(H) 74 - 99 mg/dL 12/11/2024 9:55 AM T [facility] ALBUMIN 3.8 3.5 - 5.2 g/dL 12/11/2024 9:55 AM T [facility] PHOSPHORUS 6.0(H) 2.5 - 4.5 mg/dL 12/11/2024 9:55 AM T [facility] GFR 10 mL/min/1. 73 sq meter 12/11/2024 9:55 AM T [facility] Comment:eGFR calculated with 2020 CKD-EPI equation. Vegetarian diet, extremely high or low muscle mass, and may affect results. Cystatin C with Glomerular Filtration Rate is a suitable alternative for these patients. ANION GAP 16 9 - 20 mmol/L 12/11/2024 9:55 AM [facility] Blood Venipuncture / Unknown 12/11/2024 8:58 AM CDT 12/11/2024 9:25 AM CDT us Ro West MD CHEMISTRY ORDERABLES Final Result [facility] CLIA # [id number] [address] [place] [phone] * (ABNORMAL) CBC WITH DIFFERENTIAL (12/11/2024 8:58 AM CDT) WBC 74.4(H) 4.8 - 10.8 K/uL 12/11/2024 10:23 AM [facility] RBC 2.48(L) 4.60 - 6.20 M/uL 12/11/2024 10:23 AM [facility] HEMOGLOBIN 7.8(L) 14.0 - 18.0 g/dL 12/11/2024 10:23 AM [facility] HEMATOCRIT 25.0(L) 41.0 - 53.0 % 12/11/2024 10:23 AM [facility] MCV 100.8 84.0 - 103.0 fL 12/11/2024 10:23 AM [facility] MCH 31.5 27.0 - 34.0 pg 12/11/2024 10:23 AM [facility] MCHC 31.2 30.0 - 35.0 g/dL 12/11/2024 10:23 AM [facility] PLATELETS 79(L) 140 - 440 K/uL 12/11/2024 10:23 AM [facility] MPV 10.7 8.9 - 12.8 fL 12/11/2024 10:23 AM [facility] RDW 18.0(H) 11.0 - 14.5 % 12/11/2024 10:23 AM [facility] RDW-STDEV 66.4(H) 37.0 - 54.0 fL 12/11/2024 10:23 AM [facility] SMEAR REVIEWED: - See Manual Diff. 12/11/2024 10:23 AM [facility] Blood Venipuncture / Unknown 12/11/2024 8:58 AM CDT 12/11/2024 9:25 AM T us Dustin Michel ANP HEMATOLOGY ORDERABLES Final R esult [facility] CLIA # [id number] [address] [place] [phone] * (ABNORMAL) POC GLUCOSE (12/11/2024 7:48 AM CDT) GLUCOSE POC 188(H) 74 - 99 mg/dL 12/11/2024 7:48 AM CDT [facility] SPECIMEN SOURCE, GLUCOSE POC Capillary 12/11/2024 7:48 AM CDT [facility] Blood, whole 12/11/2024 7:48 AM CDT 12/11/2024 8:05 AM CDT us Ruperto Gomez MD POINT OF CARE TESTING Fi nal Result Performing Organization Address [facility]/ZIP Co de Phone Number [facility] CLIA # [id number] [address] [id number] * (ABNORMAL) POC GLUCOSE (12/11/2024 2:54 AM CDT) GLUCOSE POC 299(H) 74 - 99 mg/dL 12/11/2024 2:54 AM CDT [facility] SPECIMEN SOURCE, GLUCOSE POC Capillary 12/11/2024 2:54 AM CDT [facility] Blood, whole 12/11/2024 2:54 AM CDT 12/11/2024 3:05 AM CDT us Jazmin Lema MD POINT OF CARE TESTING Final Result [facility] CLIA # [id number] [address] [address] * (ABNORMAL) POC GLUCOSE (12/10/2024 8:34 PM CDT) GLUCOSE POC 192(H) 74 - 99 mg/dL 12/10/2024 8:34 PM CDT [facility] SPECIMEN SOURCE, GLUCOSE POC Capillary 12/10/2024 8:34 PM CDT [facility] Blood, whole 12/10/2024 8:34 PM CDT 12/10/2024 8:48 PM CDT Jazmin Lema MD POINT OF CARE TESTING Final Result Performing Organization Address [facility] Co de Phone Number [facility] CLIA # [id number] [facility] [address] [address] [place] [address] * (ABNORMAL) HEMOGLOBIN AND HEMATOCRIT (12/10/2024 8:11 PM CDT) Pathologist [facility] HEMOGLOBIN 7.6(L) 14.0 - 18.0 g/dL 12/10/2024 8:49 PM CDT [facility] HEMATOCRIT 25.0(L) 41.0 - 53.0 % 12/10/2024 8:49 PM CDT [facility] Blood Venipuncture / Unknown 12/10/2024 8:11 PM CDT 12/10/2024 8:32 PM CDT us Jazmin Lema MD HEMATOLOGY ORDERABLES Final Result Performing Organization Address [facility] Co de Phone Number [facility] CLIA # [id number] [address] [address] * (ABNORMAL) POC GLUCOSE (12/10/2024 5:45 PM CDT) GLUCOSE POC 164(H) 74 - 99 mg/dL 12/10/2024 5:45 PM CDT [facility] SPECIMEN SOURCE, GLUCOSE POC Capillary 12/10/2024 5:45 PM CDT [facility] Blood, whole 12/10/2024 5:45 PM CDT 12/10/2024 6:14 PM CDT us Jazmin Lema MD POINT OF CARE TESTING Final Result Performing Organization Address [facility] Co de Phone Number [facility] CLIA # [id number] [id number] [place], [place] [address] * POC GLUCOSE (12/10/2024 12:50 PM CDT) GLUCOSE POC 89 74 - 99 mg/dL 12/10/2024 12:50 PM CDT [facility] SPECIMEN SOURCE, GLUCOSE POC Capillary 12/10/2024 12:50 PM CDT [facility] Blood, whole 12/10/2024 12:5 0 PM CDT 12/10/2024 12:59 PM CDT us Jazmin Lema MD POINT OF CARE TESTING Final Result Performing Organization Address [facility] de Phone Number [facility] CLIA # [id number] [address] [address] * UPPER ENDOSCOPY REPORT (12/10/2024 11:09 AM CDT) Narrative Procedure Note Clinton Ascencio DO - 12/10/2024 11:09 AM CDT [facility] GI Patient Name: Nisa Renae Procedure Date: 12/10/2024 Date of : 1945 Admit Type: Inpatient Age: 79 Attending MD: Clinton Ascencio DO, Procedure: Upper GI endoscopy Indications: Melena Providers: Clinton Ascencio DO Referring MD: Medicines: Propofol per Anesthesia Complications: No immediate complications. Procedure: After obtaining informed consent, the endoscope was passed under direct vision. Throughout the procedure, the patient's blood pressure, pulse, and oxygen saturations were monitored continuously. The Endoscope was introduced through the mouth, and advanced to the second part of duodenum. The upper GI endoscopy was accomplished without difficulty. The patient tolerated the procedure well. Estimated Blood Loss: Estimated blood loss was minimal. Findings: The examined esophagus was normal. Many non-bleeding cratered gastric ulcers with a flat pigmented spot and clean based (Coleman Class IIc and III) were found in the gastric fundus, in the gastric body and in the gastric antrum. The largest lesion was 4 mm in largest dimension. Biopsies were taken with a cold forceps for histology. No active bleeding. The examined duodenum was normal. Impression: - Normal esophagus. - Non-bleeding gastric ulcers with a flat pigmented spot (Coleman Class IIc). Biopsied. - Normal examined duodenum. Recommendation: - Twice daily PPI therapy. - Follow up pathology. - Advance diet as tolerated. - Repeat EGD after 8 weeks. - We will sign off please call for questions. Thanks for the consult. Clinton Ascencio DO 12/10/2024 11:09:39 AM Number of Addenda: 0 Note Initiated On: 12/10/2024 10:38 AM Scope Withdrawal Time Scope In: Scope Out: [address] [place] Clinton Ascencio DO GI PROCEDURE ORDERABLES Final Result * PATHOLOGY (12/10/2024 11:00 AM CDT) CASE REPORT Surgical Pathology Report Case: [id number] Authorizing Provider: Clinton Ascencio DO Collected: 12/10/2024 11:00 AM Ordering Location: [facility] Received: 12/10/2024 03:55 PM Endoscopy Pathologist: Izaiah Sandoval MD Specimen: Stomach, ulcers 11:19 AM CDT [facility] FINAL DIAGNOSIS A. 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 pylori by immunohistochemistry REV: GERMAIN Sandoval MD [id number] 11:19 AM T [facility] at 1119 CDT DIAGNOSIS COMMENT The patient's clinical history of CLL/SLL is noted. It is unclear if the fragment of ulcer bed is from the stomach or possibly a contaminant. Clinical and endoscopic correlation is recommended. 5 11:19 AM T [facility] GROSS DESCRIPTION A. Received in formalin labeled Renae -stomach ulcers are two fragments of tissue up to 0.4 cm. The specimen is submitted in toto in A1. Elif Shine 5 11:19 AM [facility] MICROSCOPIC DESCRIPTION After review of H&E stained sections, immunohistochemical stains are ordered on block A1. The lymphoma cells are positive for CD20, CD5, BCL2, and CD23 (dim). The lymphoma cells are negative for CD3, CD43, CK AE1/AE3, CD10, cyclin D1, and SOX11. The lymphoma cells are equivocal for LEF1. In situ hybridization for kappa and lambda light chains highlight polytypic plasma cells. 5 11:19 AM [facility] OPERATIVE PROCEDURE 1: ESOPHAGOGASTRODUODENOSCO PY 5 11:19 AM [facility] CLINICAL INFORMATION A Bxs of gastric ulcers Bxs of gastric ulcers 5 11:19 AM [facility] COMMENT The [employer] voice-activated dictation system may have been used in the creation of this report. Inherent to this system is the possibility of errors in syntax, grammar, punctuation, or other areas that could impact interpretation. If there are interpretive questions about the report, please contact the performing pathologist. Unless gross only is specified in the diagnosis, the microscopic examination substantiates the above cited diagnosis. The performance characteristics of all immunohistochemical stains cited in this report (if any) were determined by the [facility] of [facility] in compliance with CLIA'88 regulations. Some of these tests rely on the use of analyte specific reagents and are subject to specific labeling requirements by the FDA. All controls show appropriate reactivity. This testing was developed by the [facility] of [facility]. It has not been cleared or approved by the FDA. The FDA has determined that such clearance or approval is not necessary. 11:19 AM CDT [facility] Tissue ENTIRE STOMACH / Unknown Collection / Unknown 12/10/2024 11:00 AM CDT 12/10/2024 3:55 PM CDT Comment:Bxs of gastric ulcer s Clinton Ascencio DO PATHOLOGY/CYTOLOGY ORDE RABLES Final Result Performing Organization Address [facility] Co de Phone Number [facility] CLIA # [id number] [address] [address] [place] [address] * POC GLUCOSE (12/10/2024 7:42 AM CDT) GLUCOSE POC 86 74 - 99 mg/dL 12/10/2024 7:42 AM CDT [facility] SPECIMEN SOURCE, GLUCOSE POC Capillary 12/10/2024 7:42 AM CDT [facility] Blood, whole 12/10/2024 7:42 AM CDT 12/10/2024 8:11 AM CDT Jazmin Lema MD POINT OF CARE TESTING Final Result Performing Organization Address [facility] Co de Phone Number [facility] CLIA # [id number] [address] [address] [place] [address] * (ABNORMAL) MANUAL DIFFERENTIAL (12/10/2024 3:34 AM CDT) SEGMENTED NEUTROPHILS 3(L) 36 - 66 % 12/10/2024 4:53 AM CDT [facility] LYMPHOCYTES RELATIVE 96(H) 24 - 44 % 12/10/2024 4:53 AM CDT [facility] MONOCYTES RELATIVE 1(L) 4 - 10 % 12/10/2024 4:53 AM CDT [facility] PLATELET EST. Decreased 12/10/2024 4:53 AM T [facility] NEUTROPHILS ABSOLUTE COUNT 1.75(L) 2.00 - 8.00 K/uL 12/10/2024 4:53 AM CDT [facility] LYMPHOCYTES ABSOLUTE 55.87(H) 1.20 - 4.00 K/uL 12/10/2024 4:53 AM CDT [facility] ATYPICAL LYMPHS ABSOLUTE 12/10/2024 4:53 AM CDT [facility] MONOCYTES ABSOLUTE 0.58 0.10 - 0.60 K/uL 12/10/2024 [facility]+ /hpf 12/10/2024 4:53 AM [facility] POIKILOCYTES 1+ /hpf 12/10/2024 4:53 AM CDT [facility] POLYCHROMASIA 1+ /hpf 12/10/2024 4:53 AM [facility] OVALOCYTES 1+ /hpf 12/10/2024 4:53 AM [facility] TOTAL CELLS COUNTED IN DIFF 100 12/10/2024 4:53 AM [facility] Blood Venipuncture / Unknown 12/10/2024 3:34 AM CDT 12/10/2024 3:51 AM CDT Narrative [facility] - 12/10/2024 4:53 AM CDT Majority of lymphocytes are abnormal/atypical. us Dustin Michel ANP HEMATOLOGY ORDERABLES COM Fin al Result [facility] CLIA # [id number] [address] [place] [id number] * (ABNORMAL) CBC WITH DIFFERENTIAL (12/10/2024 3:34 AM CDT) [facility] WBC 58.2(H) 4.8 - 10.8 K/uL 12/10/2024 4:53 AM CDT [facility] RBC 2.36(L) 4.60 - 6.20 M/uL 12/10/2024 4:53 AM T [facility] HEMOGLOBIN 7.3(L) 14.0 - 18.0 g/dL 12/10/2024 4:53 AM T [facility] HEMATOCRIT 23.8(L) 41.0 - 53.0 % 12/10/2024 4:53 AM CDT [facility] MCV 100.8 84.0 - 103.0 fL 12/10/2024 4:53 AM T [facility] MCH 30.9 27.0 - 34.0 pg 12/10/2024 4:53 AM T [facility] MCHC 30.7 30.0 - 35.0 g/dL 12/10/2024 4:53 AM [facility] PLATELETS 56(L) 140 - 440 K/uL 12/10/2024 4:53 AM [facility] MPV 10.0 8.9 - 12.8 fL 12/10/2024 4:53 AM [facility] RDW 18.0(H) 11.0 - 14.5 % 12/10/2024 4:53 AM [facility] RDW-STDEV 65.9(H) 37.0 - 54.0 fL 12/10/2024 4:53 AM [facility] SMEAR REVIEWED: - See Manual Diff. 12/10/2024 4:53 AM T [facility] Blood Venipuncture / Unknown 12/10/2024 3:34 AM CDT 12/10/2024 3:51 AM CDT us Dustin Michel ANP HEMATOLOGY ORDERABLES Final R esult [facility] CLIA # [id number] [address] [address] [place] [address] * (ABNORMAL) POC GLUCOSE (12/10/2024 1:54 AM CDT) GLUCOSE POC 103(H) 74 - 99 mg/dL 12/10/2024 1:54 AM CDT [facility] SPECIMEN SOURCE, GLUCOSE POC Capillary 12/10/2024 1:54 AM CDT [facility] Blood, whole 12/10/2024 1:54 AM CDT 12/10/2024 2:06 AM CDT Jazmin Lema MD POINT OF CARE TESTING Final Result Performing Organization Address City/[facility]/ZIP Co de Phone Number [facility] CLIA # [id number] [address] [address] * (ABNORMAL) POC GLUCOSE (12/09/2024 8:36 PM CDT) GLUCOSE POC 129(H) 74 - 99 mg/dL 12/09/2024 8:36 PM CDT [facility] SPECIMEN SOURCE, GLUCOSE POC Capillary 12/09/2024 8:36 PM CDT [facility] Blood, whole 12/09/2024 8:36 PM CDT 12/09/2024 10:25 PM CDT us Jazmin Lema MD POINT OF CARE TESTING Final Result [facility] CLIA # [id number] [address] [address] * (ABNORMAL) POC GLUCOSE (12/09/2024 5:54 PM CDT) GLUCOSE POC 119(H) 74 - 99 mg/dL 12/09/2024 5:54 PM CDT [facility] SPECIMEN SOURCE, GLUCOSE POC Capillary 12/09/2024 5:54 PM CDT [facility] Blood, whole 12/09/2024 5:54 PM CDT 12/09/2024 6:03 PM CDT Jazmin Lema MD POINT OF CARE TESTING Final Result Performing Organization Address [facility] de Phone Number [facility] CLIA # [id number] [address] [address] * (ABNORMAL) POC GLUCOSE (12/09/2024 11:25 AM CDT) [facility] GLUCOSE POC 195(H) 74 - 99 mg/dL 12/09/2024 11:25 AM CDT [facility] SPECIMEN SOURCE, GLUCOSE POC Capillary 12/09/2024 11:25 AM CDT [facility] Blood, whole 12/09/2024 11:2 5 AM CDT 12/09/2024 12:31 PM CDT Jazmin Lema MD POINT OF CARE TESTING Final Result Performing Organization Address [facility] de Phone Number [facility] CLIA # [id number] [address] [address] * (ABNORMAL) MANUAL DIFFERENTIAL (12/09/2024 4:07 AM CDT) [facility] SEGMENTED NEUTROPHILS 5(L) 36 - 66 % 12/09/2024 5:04 AM CDT [facility] [employer] ([employer]) [facility] LYMPHOCYTES RELATIVE 90(H) 24 - 44 % 12/09/2024 5:04 AM CDT [facility] Comment:Majority of lymphocy sofi appear abnormal/atypical MONOCYTES RELATIVE 5 4 - 10 % 12/09/2024 5:04 AM CDT [facility] PLATELET EST. Decreased 12/09/2024 5:04 AM CDT [facility] NEUTROPHILS ABSOLUTE COUNT 2.32 2.00 - 8.00 K/uL 12/09/2024 5:04 AM CDT [facility] LYMPHOCYTES ABSOLUTE 41.76(H) 1.20 - 4.00 K/uL 12/09/2024 5:04 AM T [facility] ATYPICAL LYMPHS ABSOLUTE 12/09/2024 5:04 AM CDT [facility] MONOCYTES ABSOLUTE 2.32(H) 0.10 - 0.60 K/uL 12/09/2024 5:04 AM T [facility] ANISOCYTOSIS 1+ /hpf 12/09/2024 5:04 AM T [facility] POIKILOCYTES 2+ /hpf 12/09/2024 5:04 AM [facility] POLYCHROMASIA 1+ /hpf 12/09/2024 5:04 AM [facility] OVALOCYTES 2+ /hpf 12/09/2024 5:04 AM [facility] SMUDGE CELLS Present /100 12/09/2024 5:04 AM [facility] TOTAL CELLS COUNTED IN DIFF 100 12/09/2024 5:04 AM [facility] Blood Venipuncture / Unknown 12/09/2024 4:07 AM CDT 12/09/2024 4:30 AM CDT Dustin Michel ANP HEMATOLOGY ORDERABLES COM Fin al Result [facility] CLIA # [id number] [address] [place] [address] * (ABNORMAL) CBC WITH DIFFERENTIAL (12/09/2024 4:07 AM CDT) [facility] WBC 46.4(H) 4.8 - 10.8 K/uL 12/09/2024 5:04 AM CDT [facility] RBC 2.43(L) 4.60 - 6.20 M/uL 12/09/2024 5:04 AM CDT [facility] HEMOGLOBIN 7.8(L) 14.0 - 18.0 g/dL 12/09/2024 5:04 AM T [facility] HEMATOCRIT 24.4(L) 41.0 - 53.0 % 12/09/2024 5:04 AM CDT [facility] MCV 100.4 84.0 - 103.0 fL 12/09/2024 5:04 AM CDT [facility] MCH 32.1 27.0 - 34.0 pg 12/09/2024 5:04 AM T [facility] MCHC 32.0 30.0 - 35.0 g/dL 12/09/2024 5:04 AM T [facility] PLATELETS 63(L) 140 - 440 K/uL 12/09/2024 5:04 AM [facility] MPV 10.3 8.9 - 12.8 fL 12/09/2024 5:04 AM T [facility] RDW 17.8(H) 11.0 - 14.5 % 12/09/2024 5:04 AM [facility] RDW-STDEV 65.5(H) 37.0 - 54.0 fL 12/09/2024 5:04 AM [facility] SMEAR REVIEWED: - See Manual Diff. 12/09/2024 5:04 AM [facility] Blood Venipuncture / Unknown 12/09/2024 4:07 AM CDT 12/09/2024 4:30 AM CDT us Dustin Michel ANP HEMATOLOGY ORDERABLES Final R esult [facility] CLIA # [id number] [facility] [address] [place], [place] [address] * (ABNORMAL) POC GLUCOSE (12/09/2024 3:20 AM CDT) GLUCOSE POC 240(H) 74 - 99 mg/dL 12/09/2024 3:20 AM CDT [facility] SPECIMEN SOURCE, GLUCOSE POC Capillary 12/09/2024 3:20 AM CDT [facility] Blood, whole 12/09/2024 3:20 AM CDT 12/09/2024 3:27 AM CDT us Jazmin Lema MD POINT OF CARE TESTING Final Result Performing Organization Address [facility]/ZIP Co de Phone Number [facility] CLIA # [id number] [address] [address] [place], [place] [id number] * (ABNORMAL) POC GLUCOSE (12/08/2024 9:15 PM CDT) GLUCOSE POC 206(H) 74 - 99 mg/dL 12/08/2024 9:15 PM CDT [facility] SPECIMEN SOURCE, GLUCOSE POC Capillary 12/08/2024 9:15 PM CDT [facility] Blood, whole 12/08/2024 9:15 PM CDT 12/08/2024 9:31 PM CDT us Jazmin Lema MD POINT OF CARE TESTING Final Result [facility] CLIA # [id number] [address] [id number] * POC GLUCOSE (12/08/2024 5:27 PM CDT) GLUCOSE POC 84 74 - 99 mg/dL 12/08/2024 5:27 PM CDT [facility] SPECIMEN SOURCE, GLUCOSE POC Capillary 12/08/2024 5:27 PM CDT [facility] Blood, whole 12/08/2024 5:27 PM CDT 12/08/2024 7:18 PM CDT us Jazmin Lema MD POINT OF CARE TESTING Final Result Performing Organization Address [facility]/State/ZIP Co de Phone Number [facility] CLIA # [id number] [address] [address] [place] [address] * (ABNORMAL) POC GLUCOSE (12/08/2024 12:39 PM CDT) GLUCOSE POC 221(H) 74 - 99 mg/dL 12/08/2024 12:39 PM CDT [facility] SPECIMEN SOURCE, GLUCOSE POC Capillary 12/08/2024 12:39 PM CDT [facility] Blood, whole 12/08/2024 12:3 9 PM CDT 12/08/2024 12:46 PM CDT us Jazmin Lema MD POINT OF CARE TESTING Final Result Performing Organization Address [facility]/ZIP Co de Phone Number [facility] CLIA # [id number] [address] [address] * (ABNORMAL) OCCULT BLOOD GUAIAC DIAGNOSTIC (12/08/2024 11:32 AM CDT) OCCULT BLOOD, STOOL Positive( A) Negative 12/08/2024 5:38 PM CDT [facility] Stool STOOL SPECIMEN / Unknown Collection / Unknown 12/08/2024 11:32 AM CDT 12/08/2024 5:28 PM CDT us Jazmin Lema MD BODY FLUIDS AND STOOLS Final Result [facility] CLIA # [id number] [address] [address] [place] [address] * (ABNORMAL) POC GLUCOSE (12/08/2024 7:34 AM CDT) [facility] GLUCOSE POC 142(H) 74 - 99 mg/dL 12/08/2024 7:34 AM CDT [facility] SPECIMEN SOURCE, GLUCOSE POC Capillary 12/08/2024 7:34 AM CDT [facility] Blood, whole 12/08/2024 7:34 AM CDT 12/08/2024 7:42 AM CDT us Jazmin Lema MD POINT OF CARE TESTING Final Result Performing Organization Address [facility] Co de Phone Number [facility] CLIA # [id number] [address] [address] * (ABNORMAL) FERRITIN (12/08/2024 4:23 AM CDT) [facility] FERRITIN 917.2(H) 30.0 - 400.0 ng/mL 12/09/2024 4:38 PM CDT [facility] Blood Venipuncture / Unknown 12/08/2024 4:23 AM CDT 12/08/2024 4:33 AM CDT us Umm Dotson DO CHEMISTRY ORDERABLES Fi nal Result Performing Organization Address City/[facility]/ZIP Co de Phone Number [facility] CLIA # [id number] [address] [address] [place] [address] * (ABNORMAL) IRON, TIBC, AND PERCENT SATURATION (12/08/2024 4:23 AM CDT) [facility] IRON 55(L) 59 - 158 ug/dL 12/09/2024 4:39 PM CDT [facility] TIBC 187(L) 250 - 450 ug/dL 12/09/2024 4:39 PM CDT [facility] IRON % SATURATION 29 15 - 60 % 12/09/2024 4:39 PM CDT [facility] Blood Venipuncture / Unknown 12/08/2024 4:23 AM CDT 12/08/2024 4:33 AM CDT us Umm Dotson DO CHEMISTRY ORDERABLES Fi nal Result [facility] CLIA # [id number] [address] [address] [place] [address] * (ABNORMAL) MANUAL DIFFERENTIAL (12/08/2024 4:23 AM CDT) SEGMENTED NEUTROPHILS 9(L) 36 - 66 % 12/08/2024 5:16 AM T [facility] LYMPHOCYTES RELATIVE 91(H) 24 - 44 % 12/08/2024 5:16 AM T [facility] PLATELET EST. Decreased 12/08/2024 5:16 AM T [facility] NEUTROPHILS ABSOLUTE COUNT 3.16 2.00 - 8.00 K/uL 12/08/2024 5:16 AM T [facility] LYMPHOCYTES ABSOLUTE 31.94(H) 1.20 - 4.00 K/uL 12/08/2024 5:16 AM CDT [facility] ATYPICAL LYMPHS ABSOLUTE 12/08/2024 5:16 AM CDT [facility] ANISOCYTOSIS 1+ /hpf 12/08/2024 5:16 AM T [facility] SMUDGE CELLS Present /100 12/08/2024 5:16 AM CDT [facility] TOTAL CELLS COUNTED IN DIFF 100 12/08/2024 5:16 AM T [facility] Blood Venipuncture / Unknown 12/08/2024 4:23 AM CDT 12/08/2024 4:33 AM CDT us Dustin Michel ANP HEMATOLOGY ORDERABLES COM Fin al Result [facility] CLIA # [id number] [address] [address] [place] [address] * (ABNORMAL) CBC WITH DIFFERENTIAL (12/08/2024 4:23 AM CDT) [facility] WBC 35.1(H) 4.8 - 10.8 K/uL 12/08/2024 5:16 AM CDT [facility] RBC 2.61(L) 4.60 - 6.20 M/uL 12/08/2024 5:16 AM CDT [facility] HEMOGLOBIN 8.2(L) 14.0 - 18.0 g/dL 12/08/2024 5:16 AM CDT [facility] HEMATOCRIT 25.8(L) 41.0 - 53.0 % 12/08/2024 5:16 AM CDT [facility] MCV 98.9 84.0 - 103.0 fL 12/08/2024 5:16 AM CDT [facility] MCH 31.4 27.0 - 34.0 pg 12/08/2024 5:16 AM CDT [facility] MCHC 31.8 30.0 - 35.0 g/dL 12/08/2024 5:16 AM CDT [facility] PLATELETS 68(L) 140 - 440 K/uL 12/08/2024 5:16 AM CDT [facility] MPV 10.9 8.9 - 12.8 fL 12/08/2024 5:16 AM CDT [facility] RDW 17.6(H) 11.0 - 14.5 % 12/08/2024 5:16 AM CDT [facility] RDW-STDEV 63.8(H) 37.0 - 54.0 fL 12/08/2024 5:16 AM [facility] SMEAR REVIEWED: - See Manual Diff. 12/08/2024 5:16 AM [facility] Blood Venipuncture / Unknown 12/08/2024 4:23 AM CDT 12/08/2024 4:33 AM CDT us Dustin Michel ANP HEMATOLOGY ORDERABLES Final R esult [facility] CLIA # [id number] [facility] [address] * (ABNORMAL) COMPREHENSIVE METABOLIC PANEL (12/08/2024 4:23 AM CDT) SODIUM 136 136 - 145 mmol/L 12/08/2024 5:13 AM [facility] POTASSIUM 4.3 3.5 - 5.1 mmol/L 12/08/2024 5:13 AM [facility] CHLORIDE 98 98 - 107 mmol/L 12/08/2024 5:13 AM [facility] CO2 26 22 - 29 mmol/L 12/08/2024 5:13 AM [facility] CALCIUM 8.8 8.8 - 10.2 mg/dL 12/08/2024 5:13 AM [facility] BUN 54(H) 8 - 23 mg/dL 12/08/2024 5:13 AM [facility] CREATININE 4.59(H) 0.67 - 1.17 mg/dL 12/08/2024 5:13 AM [facility] Comment:The GFR result is no t clinically significant on patients <18 or >70 years of age. GLUCOSE 153(H) 74 - 99 mg/dL 12/08/2024 5:13 AM [facility] TOTAL PROTEIN 5.4(L) 6.4 - 8.3 g/dL 12/08/2024 5:13 AM [facility] ALBUMIN 3.5 3.5 - 5.2 g/dL 12/08/2024 5:13 AM CDT [facility] BILIRUBIN TOTAL 0.4 0.0 - 1.0 mg/dL 12/08/2024 5:13 AM CDT [facility] ALKALINE PHOSPHATASE 85 40 - 129 U/L 12/08/2024 5:13 AM T [facility] AST 28 10 - 50 U/L 12/08/2024 5:13 AM T [facility] ALT 76(H) <=50 U/L 12/08/2024 5:13 AM T [facility] GFR 12 mL/min/1. 73 sq meter 12/08/2024 5:13 AM T [facility] Comment:eGFR calculated with 2020 CKD-EPI equation. Vegetarian diet, extremely high or low muscle mass, and may affect results. Cystatin C with Glomerular Filtration Rate is a suitable alternative for these patients. ANION GAP 12 9 - 20 mmol/L 12/08/2024 5:13 AM T [facility] Blood Venipuncture / Unknown 12/08/2024 4:23 AM CDT 12/08/2024 4:33 AM CDT Dustin Michel ANP CHEMISTRY ORDERABLES Final Re sult [facility] # [id number] [address] [place] [id number] * (ABNORMAL) POC GLUCOSE (12/08/2024 2:57 AM CDT) GLUCOSE POC 162(H) 74 - 99 mg/dL 12/08/2024 2:57 AM CDT [facility] SPECIMEN SOURCE, GLUCOSE POC Capillary 12/08/2024 2:57 AM CDT [facility] Blood, whole 12/08/2024 2:57 AM CDT 12/08/2024 3:05 AM CDT us Jazmin Lema MD POINT OF CARE TESTING Final Result Performing Organization Address [facility]/ZIP Co de Phone Number [facility] CLIA # [id number] [address] [place] [address] * (ABNORMAL) POC GLUCOSE (12/07/2024 9:25 PM CDT) GLUCOSE POC 204(H) 74 - 99 mg/dL 12/07/2024 9:25 PM CDT [facility] SPECIMEN SOURCE, GLUCOSE POC Capillary 12/07/2024 9:25 PM CDT [facility] Blood, whole 12/07/2024 9:25 PM CDT 12/07/2024 9:50 PM CDT us Jazmin Lema MD POINT OF CARE TESTING Final Result Performing Organization Address [facility] Co de Phone Number [facility] CLIA # [id number] [address] [place], [place] [address] * (ABNORMAL) POC GLUCOSE (12/07/2024 5:15 PM CDT) GLUCOSE POC 141(H) 74 - 99 mg/dL 12/07/2024 5:15 PM CDT [facility] SPECIMEN SOURCE, GLUCOSE POC Capillary 12/07/2024 5:15 PM CDT [facility] Blood, whole 12/07/2024 5:15 PM CDT 12/07/2024 5:33 PM CDT us Jazmin Lema MD POINT OF CARE TESTING Final Result Performing Organization Address City/[facility]/ZIP Co de Phone Number [facility] CLIA # [id number] [address] [place] [address] * (ABNORMAL) POC GLUCOSE (12/07/2024 11:48 AM CDT) GLUCOSE POC 200(H) 74 - 99 mg/dL 12/07/2024 11:48 AM CDT [facility] SPECIMEN SOURCE, GLUCOSE POC Capillary 12/07/2024 11:48 AM CDT [facility] Blood, whole 12/07/2024 11:4 8 AM CDT 12/07/2024 12:02 PM CDT us Jazmin Lema MD POINT OF CARE TESTING Final Result Performing Organization Address [facility]/ZIP Co de Phone Number [facility] CLIA # [id number] [address] [address] * (ABNORMAL) POC GLUCOSE (12/07/2024 8:15 AM CDT) GLUCOSE POC 107(H) 74 - 99 mg/dL 12/07/2024 8:15 AM CDT [facility] SPECIMEN SOURCE, GLUCOSE POC Venous 12/07/2024 8:15 AM CDT [facility] Blood, whole 12/07/2024 8:15 AM CDT 12/07/2024 8:22 AM CDT us Jazmin Lema MD POINT OF CARE TESTING Final Result Performing Organization Address City/[facility]/ZIP Co de Phone Number [facility] CLIA # [id number] [address] [address] * (ABNORMAL) MANUAL DIFFERENTIAL (12/07/2024 6:58 AM CDT) SEGMENTED NEUTROPHILS 12(L) 36 - 66 % 12/07/2024 7:56 AM CDT [facility] LYMPHOCYTES RELATIVE 88(H) 24 - 44 % 12/07/2024 7:56 AM T [facility] PLATELET EST. Decreased 12/07/2024 7:56 AM T [facility] NEUTROPHILS ABSOLUTE COUNT 3.65 2.00 - 8.00 K/uL 12/07/2024 7:56 AM T [facility] LYMPHOCYTES ABSOLUTE 26.75(H) 1.20 - 4.00 K/uL 12/07/2024 7:56 AM T [facility] ATYPICAL LYMPHS ABSOLUTE 12/07/2024 7:56 AM T [facility] ANISOCYTOSIS 2+ /hpf 12/07/2024 7:56 AM T [facility] POIKILOCYTES 3+ /hpf 12/07/2024 7:56 AM [facility] POLYCHROMASIA 1+ /hpf 12/07/2024 7:56 AM T [facility] OVALOCYTES 1+ /hpf 12/07/2024 7:56 AM [facility] TEAR DROP CELLS 1+ /hpf 7:56 AM [facility] TOTAL CELLS COUNTED IN DIFF 100 12/07/2024 7:56 AM [facility] Blood Venipuncture / Unknown 12/07/2024 6:58 AM CDT 12/07/2024 7:02 AM CDT Dustin Michel ANP HEMATOLOGY ORDERABLES COM Fin al Result [facility] CLIA # [id number] [address] [place] [address] [place], [place] [address] * UNFRACTIONATED HEPARIN MONITORING (12/07/2024 6:58 AM CDT) ANTI-XA UNFRAC HEP 0.41 See Interpretation IU/mL 12/07/2024 7:19 AM T [facility] Blood Venipuncture / Unknown 12/07/2024 6:58 AM CDT 12/07/2024 7:02 AM CDT [facility] - 12/07/2024 7:19 AM CDT Therapeutic Range: PT/DVT Heparin Protocol 0.3 - 0.7 IU/ml Cardiac Heparin Protocol 0.3 - 0.6 IU/ml The reference range for this test is specific to the anticoagulant and is not appropriate for monitoring patients on a DOAC protocol. Jazmin Lema MD HEMATOLOGY ORDERABLES Final Result [facility] CLIA # [id number] [address] [place] [id number] * (ABNORMAL) CBC WITH DIFFERENTIAL (12/07/2024 6:58 AM CDT) WBC 30.4(H) 4.8 - 10.8 K/uL 12/07/2024 7:56 AM [facility] RBC 2.65(L) 4.60 - 6.20 M/uL 12/07/2024 7:56 AM [facility] HEMOGLOBIN 8.3(L) 14.0 - 18.0 g/dL 12/07/2024 7:56 AM [facility] HEMATOCRIT 26.2(L) 41.0 - 53.0 % 12/07/2024 7:56 AM [facility] MCV 98.9 84.0 - 103.0 fL 12/07/2024 7:56 AM [facility] MCH 31.3 27.0 - 34.0 pg 12/07/2024 7:56 AM [facility] MCHC 31.7 30.0 - 35.0 g/dL 12/07/2024 7:56 AM [facility] PLATELETS 67(L) 140 - 440 K/uL 12/07/2024 7:56 AM [facility] MPV 10.6 8.9 - 12.8 fL 12/07/2024 7:56 AM CDT [facility] RDW 17.8(H) 11.0 - 14.5 % 12/07/2024 7:56 AM T [facility] RDW-STDEV 64.3(H) 37.0 - 54.0 fL 12/07/2024 7:56 AM T [facility] SMEAR REVIEWED: - See Manual Diff. 12/07/2024 7:56 AM T [facility] Blood Venipuncture / Unknown 12/07/2024 6:58 AM CDT 12/07/2024 7:02 AM CDT Dustin Michel ANP HEMATOLOGY ORDERABLES Final R esult [facility] CLIA # [id number] [address] [place] [address] * (ABNORMAL) COMPREHENSIVE METABOLIC PANEL (12/07/2024 6:58 AM CDT) SODIUM 132(L) 136 - 145 mmol/L 12/07/2024 7:39 AM [facility] POTASSIUM 4.4 3.5 - 5.1 mmol/L 12/07/2024 7:39 AM [facility] CHLORIDE 93(L) 98 - 107 mmol/L 12/07/2024 7:39 AM T [facility] CO2 22 22 - 29 mmol/L 12/07/2024 7:39 AM [facility] CALCIUM 8.5(L) 8.8 - 10.2 mg/dL 12/07/2024 7:39 AM T [facility] BUN 96(H) 8 - 23 mg/dL 12/07/2024 7:39 AM [facility] CREATININE 6.58(H) 0.67 - 1.17 mg/dL 12/07/2024 7:39 AM CDT [facility] Comment:The GFR result is no t clinically significant on patients <18 or >70 years of age. GLUCOSE 114(H) 74 - 99 mg/dL 12/07/2024 7:39 AM CDT [facility] TOTAL PROTEIN 5.2(L) 6.4 - 8.3 g/dL 12/07/2024 7:39 AM [facility] ALBUMIN 3.4(L) 3.5 - 5.2 g/dL 12/07/2024 7:39 AM T [facility] BILIRUBIN TOTAL 0.6 0.0 - 1.0 mg/dL 12/07/2024 7:39 AM [facility] ALKALINE PHOSPHATASE 69 40 - 129 U/L 12/07/2024 7:39 AM T [facility] AST 31 10 - 50 U/L 12/07/2024 7:39 AM [facility] ALT 88(H) <=50 U/L 12/07/2024 7:39 AM T [facility] GFR 8 mL/min/1. 73 sq meter 12/07/2024 7:39 AM [facility] Comment:eGFR calculated with 2020 CKD-EPI equation. Vegetarian diet, extremely high or low muscle mass, and may affect results. Cystatin C with Glomerular Filtration Rate is a suitable alternative for these patients. ANION GAP 17 9 - 20 mmol/L 12/07/2024 7:39 AM [facility] Blood Venipuncture / Unknown 12/07/2024 6:58 AM CDT 12/07/2024 7:02 AM CDT us Dustin Michel ANP CHEMISTRY ORDERABLES Final Re sult [facility] CLIA # [id number] [address] [place] [address] * POC GLUCOSE (12/07/2024 1:14 AM CDT) GLUCOSE POC 97 74 - 99 mg/dL 12/07/2024 1:14 AM CDT [facility] SPECIMEN SOURCE, GLUCOSE POC Capillary 12/07/2024 1:14 AM CDT [facility] Blood, whole 12/07/2024 1:14 AM CDT 12/07/2024 1:22 AM CDT us Jazmin Lema MD POINT OF CARE TESTING Final Result Performing Organization Address [facility] Co de Phone Number [facility] CLIA # [id number] [address] [address] * UNFRACTIONATED HEPARIN MONITORING (12/06/2024 11:44 PM CDT) [facility] ANTI-XA UNFRAC HEP 0.26 See Interpretation IU/mL 12/07/2024 12:23 AM CDT [facility] Blood Venipuncture / Unknown 12/06/2024 11:44 PM CDT 12/06/2024 11:57 PM CDT Narrative [facility] - 12/07/2024 12:23 AM CDT Therapeutic Range: PT/DVT Heparin Protocol 0.3 - 0.7 IU/ml Cardiac Heparin Protocol 0.3 - 0.6 IU/ml The reference range for this test is specific to the anticoagulant and is not appropriate for monitoring patients on a DOAC protocol. us Jazmin Lema MD HEMATOLOGY ORDERABLES Final Result Performing Organization Address City/[facility]/ZIP Co de Phone Number [facility] CLIA # [id number] [address] [id number] * UNFRACTIONATED HEPARIN MONITORING (12/06/2024 5:51 PM CDT) [facility] ANTI-XA UNFRAC HEP 0.28 See Interpretation IU/mL 12/06/2024 6:22 PM CDT [facility] Blood Venipuncture / Unknown 12/06/2024 5:51 PM CDT 12/06/2024 6:04 PM CDT Narrative [facility] - 12/06/2024 6:22 PM CDT Therapeutic Range: PT/DVT Heparin Protocol 0.3 - 0.7 IU/ml Cardiac Heparin Protocol 0.3 - 0.6 IU/ml The reference range for this test is specific to the anticoagulant and is not appropriate for monitoring patients on a DOAC protocol. us Valencia Singh MD HEMATOLOGY ORDERABLES Final Resu lt Performing Organization Address [facility]/ZIP Co de Phone Number [facility] CLIA # [id number] [address] [address] * (ABNORMAL) POC GLUCOSE (12/06/2024 4:30 PM CDT) GLUCOSE POC 172(H) 74 - 99 mg/dL 12/06/2024 4:30 PM CDT [facility] SPECIMEN SOURCE, GLUCOSE POC Capillary 12/06/2024 4:30 PM CDT [facility] Blood, whole 12/06/2024 4:30 PM CDT 12/06/2024 4:58 PM CDT us Jazmin Lema MD POINT OF CARE TESTING Final Result Performing Organization Address [facility]/ZIP Co de Phone Number [facility] CLIA # [id number] [address] [id number] * LACTIC ACID (12/06/2024 1:48 PM CDT) LACTIC ACID 2.0 <=2.0 mmol/L 12/06/2024 2:15 PM CDT [facility] Blood Venipuncture / Unknown 12/06/2024 1:48 PM CDT 12/06/2024 1:51 PM CDT Dustin Michel [facility] CHEMISTRY ORDERABLES Final Re sult Performing Organization Address [facility] de Phone Number [facility] CLIA # [id number] [address] [phone] * (ABNORMAL) POC GLUCOSE (12/06/2024 10:59 AM CDT) Pathologist [facility] GLUCOSE POC 235(H) 74 - 99 mg/dL 12/06/2024 10:59 AM CDT [facility] SPECIMEN SOURCE, GLUCOSE POC Capillary 12/06/2024 10:59 AM CDT [facility] Blood, whole 12/06/2024 10:5 9 AM CDT 12/06/2024 11:09 AM CDT Valencia Singh MD POINT OF CARE TESTING Final Resu lt Performing Organization Address [facility] Co de Phone Number [facility] CLIA # [id number] [address] [address] * UNFRACTIONATED HEPARIN MONITORING (12/06/2024 10:12 AM CDT) Pathologist [facility] ANTI-XA UNFRAC HEP 0.29 See Interpretation IU/mL 12/06/2024 10:33 AM CDT [facility] Blood Venipuncture / Unknown 12/06/2024 10:12 AM CDT 12/06/2024 10:16 AM CDT Narrative [facility] - 12/06/2024 10:33 AM CDT Therapeutic Range: PT/DVT Heparin Protocol 0.3 - 0.7 IU/ml Cardiac Heparin Protocol 0.3 - 0.6 IU/ml The reference range for this test is specific to the anticoagulant and is not appropriate for monitoring patients on a DOAC protocol. Jim Asif MD HEMATOLOGY ORDERAB LES Final Result Performing Organization Address [facility] Co de Phone Number [facility] CLIA # [id number] [address] [facility] [place] [address] * (ABNORMAL) POC GLUCOSE (12/06/2024 6:54 AM CDT) GLUCOSE POC 198(H) 74 - 99 mg/dL 12/06/2024 6:54 AM CDT [facility] SPECIMEN SOURCE, GLUCOSE POC Capillary 12/06/2024 6:54 AM CDT [facility] Blood, whole 12/06/2024 6:54 AM CDT 12/06/2024 7:11 AM CDT Walt Aguero MD POINT OF CARE TESTING Final Result Performing Organization Address [facility] de Phone Number [facility] CLIA # [id number] [address] [place] [address] * LIPASE (12/06/2024 4:51 AM CDT) Pathologist [facility] LIPASE 14 13 - 60 U/L 12/06/2024 1:17 PM CDT [facility] Blood Venipuncture / Unknown 12/06/2024 4:51 AM CDT 12/06/2024 4:59 AM CDT Dustin HOPE CHEMISTRY ORDERABLES Final Re sult Performing Organization Address [facility] Co de Phone Number [facility] CLIA # [id number] [address] [place] [address] * (ABNORMAL) MANUAL DIFFERENTIAL (12/06/2024 4:51 AM CDT) [facility] SEGMENTED NEUTROPHILS 10(L) 36 - 66 % 12/06/2024 5:52 AM T [facility] LYMPHOCYTES RELATIVE 66(H) 24 - 44 % 12/06/2024 5:52 AM [facility] ATYPICAL LYMPHOCYTES RELATIVE 21(H) <=1 % 12/06/2024 5:52 AM T [facility] MONOCYTES RELATIVE 3(L) 4 - 10 % 12/06/2024 5:52 AM [facility] PLATELET EST. Decreased 12/06/2024 5:52 AM [facility] NEUTROPHILS ABSOLUTE COUNT 2.16 2.00 - 8.00 K/uL 12/06/2024 5:52 AM [facility] LYMPHOCYTES ABSOLUTE 14.26(H) 1.20 - 4.00 K/uL 12/06/2024 5:52 AM T [facility] ATYPICAL LYMPHS ABSOLUTE 4.54(H) <=0.00 K/uL 12/06/2024 5:52 AM [facility] MONOCYTES ABSOLUTE 0.65(H) 0.10 - 0.60 K/uL 12/06/2024 5:52 AM [facility] ANISOCYTOSIS 2+ /hpf 12/06/2024 5:52 AM [facility] POIKILOCYTES 3+ /hpf 12/06/2024 5:52 AM [facility] POLYCHROMASIA 1+ /hpf 12/06/2024 5:52 AM [facility] OVALOCYTES 1+ /hpf 12/06/2024 5:52 AM [facility] HANK CELLS 1+ /hpf 12/06/2024 5:52 AM [facility] TEAR DROP CELLS 1+ /hpf 5:52 AM [facility] SMUDGE CELLS Present /100 12/06/2024 5:52 AM CDT [facility] TOTAL CELLS COUNTED IN DIFF 100 12/06/2024 5:52 AM T [facility] Blood Venipuncture / Unknown 12/06/2024 4:51 AM CDT 12/06/2024 4:56 AM CDT us Tigist RUSSELL HEMATOLOGY ORDERABLES COM Final Result [facility] CLIA # [id number] [address] [address] [place] [address] * (ABNORMAL) COMPREHENSIVE METABOLIC PANEL (12/06/2024 4:51 AM CDT) SODIUM 133(L) 136 - 145 mmol/L 12/06/2024 5:33 AM [facility] POTASSIUM 5.2(H) 3.5 - 5.1 mmol/L 12/06/2024 5:33 AM T [facility] CHLORIDE 94(L) 98 - 107 mmol/L 12/06/2024 5:33 AM [facility] CO2 20(L) 22 - 29 mmol/L 12/06/2024 5:33 AM [facility] CALCIUM 8.7(L) 8.8 - 10.2 mg/dL 12/06/2024 5:33 AM T [facility] BUN 75(H) 8 - 23 mg/dL 12/06/2024 5:33 AM T [facility] CREATININE 5.49(H) 0.67 - 1.17 mg/dL 12/06/2024 5:33 AM T [facility] Comment:The GFR result is no t clinically significant on patients <18 or >70 years of age. GLUCOSE 194(H) 74 - 99 mg/dL 12/06/2024 5:33 AM T [facility] TOTAL PROTEIN 5.6(L) 6.4 - 8.3 g/dL 12/06/2024 5:33 AM CDT [facility] ALBUMIN 3.4(L) 3.5 - 5.2 g/dL 12/06/2024 5:33 AM T [facility] BILIRUBIN TOTAL 0.6 0.0 - 1.0 mg/dL 12/06/2024 5:33 AM CDT [facility] ALKALINE PHOSPHATASE 73 40 - 129 U/L 12/06/2024 5:33 AM T [facility] AST 45 10 - 50 U/L 12/06/2024 5:33 AM T [facility] ALT 112(H) <=50 U/L 12/06/2024 5:33 AM [facility] GFR 10 mL/min/1. 73 sq meter 12/06/2024 5:33 AM T [facility] Comment:eGFR calculated with 2020 CKD-EPI equation. Vegetarian diet, extremely high or low muscle mass, and may affect results. Cystatin C with Glomerular Filtration Rate is a suitable alternative for these patients. ANION GAP 19 9 - 20 mmol/L 12/06/2024 5:33 AM [facility] Blood Venipuncture / Unknown 12/06/2024 4:51 AM CDT 12/06/2024 4:59 AM CDT us Dustin Michel ANP CHEMISTRY ORDERABLES Final Re sult [facility] CLIA # [id number] [address] [place] [address] * (ABNORMAL) CBC WITH DIFFERENTIAL (12/06/2024 4:51 AM CDT) WBC 21.6(H) 4.8 - 10.8 K/uL 12/06/2024 5:52 AM CDT [facility] RBC 3.12(L) 4.60 - 6.20 M/uL 12/06/2024 5:52 AM T [facility] HEMOGLOBIN 9.8(L) 14.0 - 18.0 g/dL 12/06/2024 5:52 AM CDT [facility] HEMATOCRIT 31.0(L) 41.0 - 53.0 % 12/06/2024 5:52 AM CDT [facility] MCV 99.4 84.0 - 103.0 fL 12/06/2024 5:52 AM T [facility] MCH 31.4 27.0 - 34.0 pg 12/06/2024 5:52 AM CDT [facility] MCHC 31.6 30.0 - 35.0 g/dL 12/06/2024 5:52 AM CDT [facility] PLATELETS 73(L) 140 - 440 K/uL 12/06/2024 5:52 AM T [facility] MPV 10.3 8.9 - 12.8 fL 12/06/2024 5:52 AM T [facility] RDW 17.9(H) 11.0 - 14.5 % 12/06/2024 5:52 AM T [facility] RDW-STDEV 65.7(H) 37.0 - 54.0 fL 12/06/2024 5:52 AM T [facility] SMEAR REVIEWED: - See Manual Diff. 12/06/2024 5:52 AM [facility] Blood Venipuncture / Unknown 12/06/2024 4:51 AM CDT 12/06/2024 4:56 AM CDT us Dustin Michel ANP HEMATOLOGY ORDERABLES Final R esult [facility] CLIA # [id number] [address] [place] [address] [place], [place] [phone] * UNFRACTIONATED HEPARIN MONITORING (12/06/2024 3:42 AM CDT) ANTI-XA UNFRAC HEP <0.10 See Interpretation IU/mL 12/06/2024 4:07 AM CDT [facility] Blood Venipuncture / Unknown 12/06/2024 3:42 AM CDT 12/06/2024 3:46 AM CDT Narrative [facility] - 12/06/2024 4:07 AM CDT Therapeutic Range: PT/DVT Heparin Protocol 0.3 - 0.7 IU/ml Cardiac Heparin Protocol 0.3 - 0.6 IU/ml The reference range for this test is specific to the anticoagulant and is not appropriate for monitoring patients on a DOAC protocol. Jim Asif MD HEMATOLOGY ORDERAB LES Final Result [facility] CLIA # [id number] [address] [address] [place], [place] [id number] * (ABNORMAL) POC GLUCOSE (12/06/2024 1:58 AM CDT) GLUCOSE POC 187(H) 74 - 99 mg/dL 12/06/2024 1:58 AM CDT [facility] SPECIMEN SOURCE, GLUCOSE POC Capillary 12/06/2024 1:58 AM CDT [facility] Blood, whole 12/06/2024 1:58 AM CDT 12/06/2024 3:56 AM CDT Walt Aguero MD POINT OF CARE TESTING Final Result [facility] CLIA # [id number] [address] [address] [place], [place] [id number] * (ABNORMAL) POC GLUCOSE (12/05/2024 9:06 PM CDT) GLUCOSE POC 178(H) 74 - 99 mg/dL 12/05/2024 9:06 PM CDT [facility] SPECIMEN SOURCE, GLUCOSE POC Capillary 12/05/2024 9:06 PM CDT [facility] Blood, whole 12/05/2024 9:06 PM CDT 12/05/2024 9:23 PM CDT Walt Aguero MD POINT OF CARE TESTING Final Result [facility] CLIA # [id number] [address] [place] [address] * XR ABDOMEN FOR FEEDING TUBE 1 VW (12/05/2024 7:48 PM CDT) Anatomical Region Laterality Modality Abdomen Computed Radiogr aphy 12/05/2024 7:48 PM CDT Impressions 12/05/2024 7:51 PM CDT IMPRESSION: NG tube below the diaphragm looped in the gastric fundus. Narrative 12/05/2024 7:51 PM CDT Exam: XR ABDOMEN FOR FEEDING TUBE 1 VW Date/Time of Exam: 12/05/2024 7:48 PM Reason For Exam: Check Tube Placement. Diagnosis: See Reason for Exam. Comparison: None. Procedure Note Pk Juarez MD - 12/05/2024 Exam: XR ABDOMEN FOR FEEDING TUBE 1 VW Date/Time of Exam: 12/05/2024 7:48 PM Reason For Exam: Check Tube Placement. Diagnosis: See Reason for Exam. Comparison: None. IMPRESSION: NG tube below the diaphragm looped in the gastric fundus. us Jim Asif MD DIAGNOSTIC IMAGING ORDERABLES Final Result * UNFRACTIONATED HEPARIN MONITORING (12/05/2024 7:40 PM CDT) ANTI-XA UNFRAC HEP <0.10 See Interpretation IU/mL 12/05/2024 8:14 PM CDT [facility] Blood Venipuncture / Unknown 12/05/2024 7:40 PM CDT 12/05/2024 7:45 PM CDT Narrative [facility] [employer] ([employer]) [facility] - 12/05/2024 8:14 PM CDT Therapeutic Range: PT/DVT Heparin Protocol 0.3 - 0.7 IU/ml Cardiac Heparin Protocol 0.3 - 0.6 IU/ml The reference range for this test is specific to the anticoagulant and is not appropriate for monitoring patients on a DOAC protocol. Walt Aguero MD HEMATOLOGY ORDERABLES Final Result Performing Organization Address [facility]/ZIP Co de Phone Number [facility] CLIA # [id number] [address] [place], [place] [address] * (ABNORMAL) LACTIC ACID (12/05/2024 4:52 PM CDT) LACTIC ACID 2.4(H) <=2.0 mmol/L 12/05/2024 5:56 PM CDT [facility] Blood Venipuncture / Unknown 12/05/2024 4:52 PM CDT 12/05/2024 5:31 PM CDT Dustin HOPE CHEMISTRY ORDERABLES Final Re sult Performing Organization Address [facility] Co de Phone Number [facility] CLIA # [id number] [address] [address] [place] [address] * XR CHEST PA OR AP 1 VW (12/05/2024 3:36 PM CDT) Anatomical Region Laterality Modality Chest Computed Radiogr aphy 12/05/2024 3:36 PM CDT Impressions 12/06/2024 6:35 AM CDT IMPRESSION: See below. Exam: XR CHEST PA OR AP 1 VW Date/Time of Exam: 12/05/2024 3:36 PM Reason For Exam: Pulmonary Edema. Diagnosis: See Reason for Exam. Findings: Comparison: 02/01/2021 Previous median sternotomy. Multilead ICD is present. There is cardiomegaly and mild vascular congestion. There is mild interstitial edema at the lung bases. There is right IJ central venous catheter tip overlying the high right atrium. No pleural fluid collection or pneumothorax. No acute osseous findings. IMPRESSION: 1. Vascular congestion with mild interstitial edema at the lung bases. Narrative Procedure Note Addy Brown MD - 12/06/2024 IMPRESSION: See below. Exam: XR CHEST PA OR AP 1 VW Date/Time of Exam: 12/05/2024 3:36 PM Reason For Exam: Pulmonary Edema. Diagnosis: See Reason for Exam. Findings: Comparison: 02/01/2021 Previous median sternotomy. Multilead ICD is present. There is cardiomegaly and mild vascular congestion. There is mild interstitial edema at the lung bases. There is right IJ central venous catheter tip overlying the high right atrium. No pleural fluid collection or pneumothorax. No acute osseous findings. IMPRESSION: 1. Vascular congestion with mild interstitial edema at the lung bases. Dustin Michel ANP DIAGNOSTIC IMAGING ORDERABLES Final Result * XR ABDOMEN 1 VW (12/05/2024 3:36 PM CDT) Anatomical Region Laterality Modality Abdomen Computed Radiogr aphy 12/05/2024 3:36 PM CDT Impressions 12/06/2024 6:34 AM CDT IMPRESSION: See below. Exam: XR ABDOMEN 1 VW Date/Time of Exam: 12/05/2024 3:36 PM Reason For Exam: Nausea, Vomiting. Diagnosis: See Reason for Exam. Findings: Comparison: None Lung bases clear. There is a rounded rim calcified structure in the right upper quadrant which is indeterminate on this could represent porcelain gallbladder or possibly a structure external to the abdomen. There was cholelithiasis within the gallbladder previous CT from 03/30/2024. Diagnosis pattern is nonobstructive in nature. No acute osseous findings. IMPRESSION: 1. 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 Correlation with right upper quadrant ultrasound can be performed as clinically warranted. 2. No evidence of bowel obstruction. Narrative Procedure Note Addy Brown MD - 12/06/2024 IMPRESSION: See below. Exam: XR ABDOMEN 1 VW Date/Time of Exam: 12/05/2024 3:36 PM Reason For Exam: Nausea, Vomiting. Diagnosis: See Reason for Exam. Findings: Comparison: None Lung bases clear. There is a rounded rim calcified structure in the right upper quadrant which is indeterminate on this could represent porcelain gallbladder or possibly a structure external to the abdomen. There was cholelithiasis within the gallbladder previous CT from 03/30/2024. Diagnosis pattern is nonobstructive in nature. No acute osseous findings. IMPRESSION: 1. 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 Correlation with right upper quadrant ultrasound can be performed as clinically warranted. 2. No evidence of bowel obstruction. Dustin HOPE DIAGNOSTIC IMAGING ORDERABLES Final Result * (ABNORMAL) POC GLUCOSE (12/05/2024 1:49 PM CDT) GLUCOSE POC 286(H) 74 - 99 mg/dL 12/05/2024 1:49 PM CDT [facility] SPECIMEN SOURCE, GLUCOSE POC Capillary 12/05/2024 1:49 PM CDT [facility] Blood, whole 12/05/2024 1:49 PM CDT 12/05/2024 2:28 PM CDT Walt Aguero MD POINT OF CARE TESTING Final Result [facility] [id number] [address] [place] [id number] * URINE CULTURE (12/05/2024 10:28 AM CDT) Pathologist [facility] CULTURE No growth 12/06/2024 9:43 AM CDT [facility] Urine URINE SPECIMEN OBTAINED BY CLEAN CATCH PROCEDURE / Unknown Collection / Unknown 12/05/2024 10:28 AM CDT 12/05/2024 10:32 AM CDT Walt Aguero MD MICROBIOLOGY - GENERAL ORDERABLES Final Result Performing Organization Address [facility] Co de Phone Number [facility] CLIA # [id number] [address] [place] [id number] * UNFRACTIONATED HEPARIN MONITORING (12/05/2024 8:55 AM CDT) [facility] ANTI-XA UNFRAC HEP 0.13 See Interpretation IU/mL 12/05/2024 9:31 AM CDT [facility] Blood Venipuncture / Unknown 12/05/2024 8:55 AM CDT 12/05/2024 9:10 AM CDT Narrative [facility] - 12/05/2024 9:31 AM CDT Therapeutic Range: PT/DVT Heparin Protocol 0.3 - 0.7 IU/ml Cardiac Heparin Protocol 0.3 - 0.6 IU/ml The reference range for this test is specific to the anticoagulant and is not appropriate for monitoring patients on a DOAC protocol. Walt Aguero MD HEMATOLOGY ORDERABLES Final Result Performing Organization Address [facility] Co de Phone Number [facility] CLIA # [id number] [address] [place] [phone] * (ABNORMAL) BASIC METABOLIC PANEL PLUS (ADD ON CMP TO BMP) (12/05/2024 8:54 AM CDT) [facility] TOTAL PROTEIN 6.0(L) 6.4 - 8.3 g/dL 12/05/2024 3:17 PM CDT [facility] ALBUMIN 3.8 3.5 - 5.2 g/dL 12/05/2024 3:17 PM CDT [facility] BILIRUBIN TOTAL 0.8 0.0 - 1.0 mg/dL 12/05/2024 3:17 PM CDT [facility] ALKALINE PHOSPHATASE 76 40 - 129 U/L 12/05/2024 3:17 PM CDT [facility] AST 60(H) 10 - 50 U/L 12/05/2024 3:17 PM CDT [facility] ALT 120(H) <=50 U/L 12/05/2024 3:17 PM CDT [facility] Blood Venipuncture / Unknown 12/05/2024 8:54 AM CDT 12/05/2024 9:11 AM CDT Dustin Michel ANP CHEMISTRY ORDERABLES Final Re sult Performing Organization Address [facility]/ZIP Co de Phone Number [facility] CLIA # [id number] [address] [id number] * (ABNORMAL) TROPONIN (12/05/2024 8:54 AM CDT) [facility] TROPONIN T, 5TH GEN 3,843(HH) <=15 ng/L 12/05/2024 9:53 AM CDT [facility] Blood Venipuncture / Unknown 12/05/2024 8:54 AM CDT 12/05/2024 9:11 AM CDT Narrative [facility] - 12/05/2024 9:53 AM CDT Troponin elevated. Dustin Michel ANP CHEMISTRY ORDERABLES Final Re sult Performing Organization Address City/[facility]/ZIP Co de Phone Number [facility] CLIA # [id number] [address] [phone] * (ABNORMAL) POC GLUCOSE (12/05/2024 8:12 AM CDT) [facility] GLUCOSE POC 258(H) 74 - 99 mg/dL 12/05/2024 8:12 AM CDT [facility] SPECIMEN SOURCE, GLUCOSE POC Capillary 12/05/2024 8:12 AM CDT [facility] Blood, whole 12/05/2024 8:12 AM CDT 12/05/2024 1:51 PM CDT Walt Yusef Aguero MD POINT OF CARE TESTING Final Result [facility] CLIA # [id number] [address] [address] * EKG 12-LEAD (12/05/2024 8:05 AM CDT) 12/05/2024 8:05 AM CDT Narrative INTERFACE SYSTEM - 12/05/2024 1:09 PM CDT [address] [id number] Test Date: 2024-12-05 Pat Name: NISA RENAE Department: 12 Room: [address] [place], [place] [id number] Gender: Male Company Controller: [email or web address] : 1945 Requested By: Order Number: [id number] Reading : Bianca Kelly Measurements Intervals [place] Rate: 65 P: 96 NE: 0 QRS: -76 QRSD: 200 T: 95 QT: 496 QTc: 515 Interpretive Statements Ventricular-paced rhythm Abnormal ECG Electronically Signed On 12-05-2024 13:09:51 CDT by Bianca Kelly Procedure Note Provider, Historical - 12/05/2024 [id number] [place] [address] Test Date: 2024-12-05 Pat Name: NISA RENAE Department: 12 Room: [address] [place] [address] Gender: Male Company Controller: [email or web address] : 1945 Requested By: Order Number: [id number] Reading : Bianca Kelly Measurements Intervals [place] Rate: 65 P: 96 NE: 0 QRS: -76 QRSD: 200 T: 95 QT: 496 QTc: 515 Interpretive Statements Ventricular-paced rhythm Abnormal ECG Electronically Signed On 12-05-2024 13:09:51 CDT by Bianca Kelly us Dustin HOPE ECG ORDERABLES Final Result INTERFACE SYSTEM Refer to clinic/hospital department * (ABNORMAL) POC GLUCOSE (12/05/2024 3:30 AM CDT) [facility] GLUCOSE POC 291(H) 74 - 99 mg/dL 12/05/2024 3:30 AM CDT [facility] SPECIMEN SOURCE, GLUCOSE POC Venous 12/05/2024 3:30 AM CDT [facility] Blood, whole 12/05/2024 3:30 AM CDT 12/05/2024 3:37 AM CDT us Walt Aguero MD POINT OF CARE TESTING Final Result Performing Organization Address [facility] de Phone Number [facility] CLIA # [id number] [address] [place] [address] * (ABNORMAL) MANUAL DIFFERENTIAL (12/05/2024 3:27 AM CDT) [facility] SEGMENTED NEUTROPHILS 19(L) 36 - 66 % 12/05/2024 4:23 AM CDT [facility] LYMPHOCYTES RELATIVE 62(H) 24 - 44 % 12/05/2024 4:23 AM CDT [facility] ATYPICAL LYMPHOCYTES RELATIVE 18(H) <=1 % 12/05/2024 4:23 AM CDT [facility] MONOCYTES RELATIVE 1(L) 4 - 10 % 12/05/2024 4:23 AM T [facility] PLATELET EST. Decreased 12/05/2024 4:23 AM CDT [facility] NEUTROPHILS ABSOLUTE COUNT 4.33 2.00 - 8.00 K/uL 12/05/2024 4:23 AM CDT [facility] LYMPHOCYTES ABSOLUTE 14.14(H) 1.20 - 4.00 K/uL 12/05/2024 4:23 AM T [facility] ATYPICAL LYMPHS ABSOLUTE 4.10(H) <=0.00 K/uL 12/05/2024 4:23 AM [facility] MONOCYTES ABSOLUTE 0.23 0.10 - 0.60 K/uL 12/05/2024 4:23 AM T [facility] ANISOCYTOSIS 1+ /hpf 12/05/2024 4:23 AM T [facility] POLYCHROMASIA 1+ /hpf 12/05/2024 4:23 AM T [facility] TOTAL CELLS COUNTED IN DIFF 100 12/05/2024 4:23 AM [facility] Blood Venipuncture / Unknown 12/05/2024 3:27 AM CDT 12/05/2024 3:31 AM CDT Tigist RUSSELL HEMATOLOGY ORDERABLES COM Final Result [facility] CLIA # [id number] [address] [place] [address] * (ABNORMAL) BASIC METABOLIC PANEL (12/05/2024 3:27 AM CDT) SODIUM 134(L) 136 - 145 mmol/L 12/05/2024 4:08 AM [facility] POTASSIUM 5.3(H) 3.5 - 5.1 mmol/L 12/05/2024 4:08 AM [facility] CHLORIDE 96(L) 98 - 107 mmol/L 12/05/2024 4:08 AM [facility] CO2 22 22 - 29 mmol/L 12/05/2024 4:08 AM [facility] CALCIUM 9.5 8.8 - 10.2 mg/dL 12/05/2024 4:08 AM T [facility] BUN 45(H) 8 - 23 mg/dL 12/05/2024 4:08 AM CDT [facility] CREATININE 3.93(H) 0.67 - 1.17 mg/dL 12/05/2024 4:08 AM T [facility] Comment:The GFR result is no t clinically significant on patients <18 or >70 years of age. GLUCOSE 291(H) 74 - 99 mg/dL 12/05/2024 4:08 AM T [facility] GFR 15 mL/min/1. 73 sq meter 12/05/2024 4:08 AM T [facility] Comment:eGFR calculated with 2020 CKD-EPI equation. Vegetarian diet, extremely high or low muscle mass, and may affect results. Cystatin C with Glomerular Filtration Rate is a suitable alternative for these patients. ANION GAP 16 9 - 20 mmol/L 12/05/2024 4:08 AM T [facility] Blood Venipuncture / Unknown 12/05/2024 3:27 AM CDT 12/05/2024 3:33 AM CDT us Tigist RUSSELL CHEMISTRY ORDERABLES Final Resu lt [facility] CLIA # [id number] [address] [place] [address] * (ABNORMAL) CBC WITH DIFFERENTIAL (12/05/2024 3:27 AM CDT) WBC 22.8(H) 4.8 - 10.8 K/uL 12/05/2024 4:23 AM T [facility] RBC 3.32(L) 4.60 - 6.20 M/uL 12/05/2024 4:23 AM T [facility] HEMOGLOBIN 10.5(L) 14.0 - 18.0 g/dL 12/05/2024 4:23 AM T [facility] HEMATOCRIT 32.8(L) 41.0 - 53.0 % 12/05/2024 4:23 AM T [facility] MCV 98.8 84.0 - 103.0 fL 12/05/2024 4:23 AM T [facility] MCH 31.6 27.0 - 34.0 pg 12/05/2024 4:23 AM T [facility] MCHC 32.0 30.0 - 35.0 g/dL 12/05/2024 4:23 AM T [facility] PLATELETS 98(L) 140 - 440 K/uL 12/05/2024 4:23 AM T [facility] MPV 10.4 8.9 - 12.8 fL 12/05/2024 4:23 AM [facility] RDW 18.2(H) 11.0 - 14.5 % 12/05/2024 4:23 AM [facility] RDW-STDEV 65.9(H) 37.0 - 54.0 fL 12/05/2024 4:23 AM [facility] SMEAR REVIEWED: - See Manual Diff. 12/05/2024 4:23 AM T [facility] Blood Venipuncture / Unknown 12/05/2024 3:27 AM CDT 12/05/2024 3:31 AM CDT us Dustin Michel ANP HEMATOLOGY ORDERABLES Final R esult [facility] CLIA # [id number] [address] [place] [address] * UNFRACTIONATED HEPARIN MONITORING (12/05/2024 3:27 AM CDT) ANTI-XA UNFRAC HEP <0.10 See Interpretation IU/mL 12/05/2024 3:47 AM T [facility] Blood Venipuncture / Unknown 12/05/2024 3:27 AM CDT 12/05/2024 3:31 AM CDT Narrative [facility] - 12/05/2024 3:47 AM CDT Therapeutic Range: PT/DVT Heparin Protocol 0.3 - 0.7 IU/ml Cardiac Heparin Protocol 0.3 - 0.6 IU/ml The reference range for this test is specific to the anticoagulant and is not appropriate for monitoring patients on a DOAC protocol. Walt Aguero MD HEMATOLOGY ORDERABLES Final Result Performing Organization Address [facility] Co de Phone Number [facility] CLIA # [id number] [address] [address] * (ABNORMAL) POC GLUCOSE (12/05/2024 2:09 AM CDT) GLUCOSE POC 296(H) 74 - 99 mg/dL 12/05/2024 2:09 AM CDT [facility] SPECIMEN SOURCE, GLUCOSE POC Capillary 12/05/2024 2:09 AM CDT [facility] Blood, whole 12/05/2024 2:09 AM CDT 12/05/2024 2:18 AM CDT Walt Aguero MD POINT OF CARE TESTING Final Result Performing Organization Address [facility] Co de Phone Number [facility] CLIA # [id number] [facility] [address] * (ABNORMAL) POC GLUCOSE (12/05/2024 12:12 AM CDT) GLUCOSE POC 308(H) 74 - 99 mg/dL 12/05/2024 12:12 AM CDT [facility] SPECIMEN SOURCE, GLUCOSE POC Capillary 12/05/2024 12:12 AM CDT [facility] COMMENT, GLU POC Result Verified 12/05/2024 12:12 AM CDT [facility] Blood, whole 12/05/2024 12:1 2 AM CDT 12/05/2024 12:26 AM CDT Walt Aguero MD POINT OF CARE TESTING Final Result Performing Organization Address [facility] Co de Phone Number [facility] CLIA # [id number] [address] [id number] * (ABNORMAL) POC GLUCOSE (12/04/2024 9:17 PM CDT) GLUCOSE POC 309(H) 74 - 99 mg/dL 12/04/2024 9:17 PM CDT [facility] SPECIMEN SOURCE, GLUCOSE POC Venous 12/04/2024 9:17 PM CDT [facility] COMMENT, GLU POC Result Verified 12/04/2024 9:17 PM CDT [facility] Blood, whole 12/04/2024 9:17 PM CDT 12/05/2024 2:51 AM CDT Walt Aguero MD POINT OF CARE TESTING Final Result Performing Organization Address [facility] Co de Phone Number [facility] CLIA # [id number] [facility] [address] * (ABNORMAL) CBC WITHOUT DIFFERENTIAL (12/04/2024 9:11 PM CDT) Pathologist [facility] WBC 22.6(H) 4.8 - 10.8 K/uL 12/04/2024 9:18 PM CDT [facility] RBC 3.39(L) 4.60 - 6.20 M/uL 12/04/2024 9:18 PM CDT [facility] HEMOGLOBIN 10.6(L) 14.0 - 18.0 g/dL 12/04/2024 9:18 PM CDT [facility] HEMATOCRIT 34.3(L) 41.0 - 53.0 % 12/04/2024 9:18 PM CDT [facility] MCV 101.2 84.0 - 103.0 fL 12/04/2024 9:18 PM CDT [facility] MCH 31.3 27.0 - 34.0 pg 12/04/2024 9:18 PM CDT [facility] MCHC 30.9 30.0 - 35.0 g/dL 12/04/2024 9:18 PM CDT [facility] PLATELETS 97(L) 140 - 440 K/uL 12/04/2024 9:18 PM CDT [facility] MPV 10.5 8.9 - 12.8 fL 12/04/2024 9:18 PM CDT [facility] RDW 18.4(H) 11.0 - 14.5 % 12/04/2024 9:18 PM T [facility] RDW-STDEV 69.1(H) 37.0 - 54.0 fL 12/04/2024 9:18 PM CDT [facility] Blood Venipuncture / Unknown 12/04/2024 9:11 PM CDT 12/04/2024 9:15 PM CDT us Tigist RUSSELL HEMATOLOGY ORDERABLES Final Res ult [facility] # [id number] [address] [place] [address] * UNFRACTIONATED HEPARIN MONITORING (12/04/2024 9:11 PM CDT) ANTI-XA UNFRAC HEP <0.10 See Interpretation IU/mL 12/04/2024 9:33 PM CDT [facility] Blood Venipuncture / Unknown 12/04/2024 9:11 PM CDT 12/04/2024 9:15 PM CDT Narrative [facility] - 12/04/2024 9:33 PM CDT Therapeutic Range: PT/DVT Heparin Protocol 0.3 - 0.7 IU/ml Cardiac Heparin Protocol 0.3 - 0.6 IU/ml The reference range for this test is specific to the anticoagulant and is not appropriate for monitoring patients on a DOAC protocol. Tigist RUSSELL HEMATOLOGY ORDERABLES Final Res ult Performing Organization Address [facility] Co de Phone Number [facility] CLIA # [id number] [address] [place] [phone] * (ABNORMAL) LACTIC ACID (12/04/2024 7:41 PM CDT) [facility] LACTIC ACID 3.2(H) <=2.0 mmol/L 12/04/2024 8:10 PM CDT [facility] Blood Venipuncture / Unknown 12/04/2024 7:41 PM CDT 12/04/2024 7:48 PM CDT Dustin Michel ANP CHEMISTRY ORDERABLES Final Re sult Performing Organization Address [facility] de Phone Number [facility] CLIA # [id number] [facility] [id number] * (ABNORMAL) TROPONIN (12/04/2024 7:41 PM CDT) Pathologist [facility] TROPONIN T, 5TH GEN 4,726(HH) <=15 ng/L 12/04/2024 8:22 PM CDT [facility] Blood Venipuncture / Unknown 12/04/2024 7:41 PM CDT 12/04/2024 7:47 PM CDT Narrative [facility] - 12/04/2024 8:22 PM CDT Troponin elevated. Dustin Michel ANP CHEMISTRY ORDERABLES Final Re sult [facility] CLIA # [id number] [address] [address] [place] [address] * (ABNORMAL) COMPREHENSIVE METABOLIC PANEL (12/04/2024 7:41 PM CDT) SODIUM 133(L) 136 - 145 mmol/L 12/04/2024 8:26 PM CDT [facility] POTASSIUM 4.9 3.5 - 5.1 mmol/L 12/04/2024 8:26 PM CDT [facility] CHLORIDE 94(L) 98 - 107 mmol/L 12/04/2024 8:26 PM CDT [facility] CO2 23 22 - 29 mmol/L 12/04/2024 8:26 PM CDT [facility] CALCIUM 9.7 8.8 - 10.2 mg/dL 12/04/2024 8:26 PM T [facility] BUN 33(H) 8 - 23 mg/dL 12/04/2024 8:26 PM T [facility] CREATININE 3.35(H) 0.67 - 1.17 mg/dL 12/04/2024 8:26 PM T [facility] Comment:The GFR result is no t clinically significant on patients <18 or >70 years of age. GLUCOSE 348(H) 74 - 99 mg/dL 12/04/2024 8:26 PM T [facility] TOTAL PROTEIN 6.3(L) 6.4 - 8.3 g/dL 12/04/2024 8:26 PM T [facility] ALBUMIN 4.0 3.5 - 5.2 g/dL 12/04/2024 8:26 PM T [facility] BILIRUBIN TOTAL 1.2(H) 0.0 - 1.0 mg/dL 12/04/2024 8:26 PM T [facility] ALKALINE PHOSPHATASE 84 40 - 129 U/L 12/04/2024 8:26 PM T [facility] AST 112(H) 10 - 50 U/L 12/04/2024 8:26 PM CDT [facility] ALT 130(H) <=50 U/L 12/04/2024 8:26 PM CDT [facility] GFR 18 mL/min/1. 73 sq meter 12/04/2024 8:26 PM CDT [facility] Comment:eGFR calculated with 2020 CKD-EPI equation. Vegetarian diet, extremely high or low muscle mass, and may affect results. Cystatin C with Glomerular Filtration Rate is a suitable alternative for these patients. ANION GAP 16 9 - 20 mmol/L 12/04/2024 8:26 PM CDT [facility] Blood Venipuncture / Unknown 12/04/2024 7:41 PM CDT 12/04/2024 7:47 PM CDT us Dustin Michel ANP CHEMISTRY ORDERABLES Final Re sult [facility] CLIA # [id number] [address] [id number] * EKG 12-LEAD (12/04/2024 5:59 PM CDT) 12/04/2024 5:59 PM CDT Narrative INTERFACE SYSTEM - 12/05/2024 1:02 PM [address]T [address] [address] Test Date: 2024-12-04 Pat Name: NISA RENAE Department: 12 Room: [address] [place] [address] Gender: Male Company Controller: [id number] : 1945 Requested By: Order Number: [id number] Reading MD: Bianca Kelly Measurements Intervals [place] Rate: 65 P: 0 NE: 0 QRS: -69 QRSD: 210 T: 106 QT: 522 QTc: 542 Interpretive Statements Ventricular-paced rhythm Abnormal ECG Electronically Signed On 12-05-2024 13:02:41 CDT by Bianca Kelly Procedure Note Provider, Historical - 12/05/2024 [facility] [address] [place] [address] Test Date: 2024-12-04 Pat Name: NISA RENAE Department: 12 Room: [address] [place] [address] Gender: Male Company Controller: [id number] : 1945 Requested By: Order Number: [id number] Reading MD: Bianca Kelly Measurements Intervals [place] Rate: 65 P: 0 NE: 0 QRS: -69 QRSD: 210 T: 106 QT: 522 QTc: 542 Interpretive Statements Ventricular-paced rhythm Abnormal ECG Electronically Signed On 12-05-2024 13:02:41 CDT by Bianca Kelly us Dustin HOPE ECG ORDERABLES Final Result Performing Organization Address City/[facility]/ZIP Co de Phone Number INTERFACE SYSTEM Refer to clinic/hospital department * (ABNORMAL) POC GLUCOSE (12/04/2024 4:47 PM CDT) GLUCOSE POC 169(H) 74 - 99 mg/dL 12/04/2024 4:47 PM CDT [facility] SPECIMEN SOURCE, GLUCOSE POC Capillary 12/04/2024 4:47 PM CDT [facility] Blood, whole 12/04/2024 4:47 PM CDT 12/04/2024 4:59 PM CDT Walt Aguero MD POINT OF CARE TESTING Final Result Performing Organization Address City/[facility]/ZIP Co de Phone Number [facility] CLIA # [id number] [address] [facility] [place] [address] * (ABNORMAL) POC GLUCOSE (12/04/2024 2:07 PM CDT) GLUCOSE POC 219(H) 74 - 99 mg/dL 12/04/2024 2:07 PM CDT [facility] SPECIMEN SOURCE, GLUCOSE POC Capillary 12/04/2024 2:07 PM CDT [facility] Blood, whole 12/04/2024 2:07 PM CDT 12/04/2024 2:14 PM CDT Walt Aguero MD POINT OF CARE TESTING Final Result Performing Organization Address [facility]/ZIP Co de Phone Number [facility] CLIA # [id number] [address] [id number] * (ABNORMAL) POC GLUCOSE (12/04/2024 11:46 AM CDT) GLUCOSE POC 368(H) 74 - 99 mg/dL 12/04/2024 11:46 AM CDT [facility] SPECIMEN SOURCE, GLUCOSE POC Capillary 12/04/2024 11:46 AM CDT [facility] COMMENT, GLU POC Notified Caregiver 12/04/2024 11:46 AM CDT [facility] Blood, whole 12/04/2024 11:4 6 AM CDT 12/04/2024 11:58 AM CDT Walt Aguero MD POINT OF CARE TESTING Final Result Performing Organization Address City/[facility] Co de Phone Number [facility] CLIA # [id number] [address] [id number] * ECHOCARDIOGRAM W/ CONTRAST AGENT (12/04/2024 10:45 AM CDT) EJECTION FRACTION 26 INTERFACE SYSTEM 12/04/2024 8:57 AM CDT Narrative INTERFACE SYSTEM - 12/04/2024 11:13 AM CDT [facility] Echocardiography Laboratory [address] [place] [address] Transthoracic Echocardiography Patient: Nisa Renae Study ID: ECHO COMPLETE - Gender: M : 1945 Age: 79 Room: [facility] Study Date: 12/04/2024 Pt Status: Inpatient Study Time: 08:57:28 AM CSN #: [id number] Ordering:[employer] Supervisor: Gagandeep Nava [facility] Indications and History: Hypotension or Hemodynamic Instability; Hypotension or hemodynamic instability of uncertain or suspected cardiac etiology Summary and Conclusion: - Left ventricle: The cavity size is normal. Wall thickness is increased in a pattern of mild LVH. Global systolic function is severely reduced. The estimated ejection fraction is 25-30%. For Epic reporting: the left ventricular ejection fraction is 26% by biplane method of disks. There is diffuse hypokinesis. Grade II diastolic dysfunction. - Right ventricle: The cavity size is normal. Pacer wire or catheter noted in right ventricle. Systolic function is low normal to reduced. Systolic pressure is mildly increased. The estimated peak pressure is 38mm Hg. - Right atrium: Pacer wire or catheter noted in right atrium. - Aortic valve: The valve is trileaflet. The leaflets are mildly thickened. There is no stenosis. - Mitral valve: The annulus is mildly calcified. There is mild to moderate regurgitation. - Tricuspid valve: There is moderate regurgitation. - Inferior vena cava: The IVC is dilated. Respirophasic diameter changes are blunted (< 50%), consistent with elevated central venous pressure. Comparison: Compared to the previous study, LV systolic functionhas not changed. Prior Study Date: 09/15/2024. Procedure information: Comparison is made to the study of 09/15/2024. Study status: Routine. Procedure: A transthoracic echocardiogram was performed. Image quality was adequate. Scanning was performed from the parasternal, apical, subcostal, and suprasternal notch acoustic windows. Study components: M-mode, 2D, complete spectral Doppler, and color Doppler. Height: 180.3cm. Height: 71in. Weight: 105.2kg. Weight: 231.9lb. BMI: 32.4kg/m^2. BSA: 2.33m^2. Blood pressure: 122/45 Study date: 12/04/2024. Study time: 08:57 AM. Location: ICU/CCU Cardiac Anatomy: LEFT VENTRICLE: The cavity size is normal. Wall thickness is increased in a pattern of mild LVH. Global systolic function is severely reduced. The estimated ejection fraction is 25-30%. For Epic reporting: the left ventricular ejection fraction is 26% by biplane method of disks. There is diffuse hypokinesis. Grade II diastolic dysfunction. RIGHT VENTRICLE: The cavity size is normal. Pacer wire or catheter noted in right ventricle. Systolic function is low normal to reduced. Systolic pressure is mildly increased. The estimated peak pressure is 38mm Hg. LEFT ATRIUM: The atrium is normal in size. RIGHT ATRIUM: The atrium is normal in size. Pacer wire or catheter noted in right atrium. ATRIAL SEPTUM: No obvious PFO or ASD identified by 2D imaging and color Doppler. AORTIC VALVE: The valve is trileaflet. The leaflets are mildly thickened. Mobility is not restricted. There is no stenosis. There is no significant regurgitation. MITRAL VALVE: The annulus is mildly calcified. Mobility is not restricted. No evidence for prolapse. There is no evidence for stenosis. There is mild to moderate regurgitation. TRICUSPID VALVE: Structurally normal valve. Mobility is unrestricted. There is no evidence for stenosis. There is moderate regurgitation. PULMONIC VALVE: Not well visualized. The valve appears to be grossly normal. There is no evidence for stenosis. There is no significant regurgitation. PERICARDIUM: There is no pericardial effusion. AORTA: Aortic root: The root is not dilated. Aortic arch: The vessel is not dilated. INTRACARDIAC MASS THROMBUS: No apparent intracavitary masses or thrombi detected. Measurements Left ventricle Value Left atrium Value MARYANN, LAX 4.9 cm AP dim, ES 4.9 cm ESD, LAX 4.6 cm AP dim index, ES 2.1 cm/m^2 MARYANN/bsa, LAX 2.1 cm/m^2 SI dim, A4C 5.0 cm ESD/bsa, LAX 2.0 cm/m^2 Area ES, A4C 12 cm^2 FS, LAX 7 % Vol, S 44 ml FS, LAX chord 7 % Vol/bsa, S 19 ml/m^2 ESD major ax, A4C 8.6 cm Vol, ES, 1-p A4C 24 ml ESD/bsa major ax, A4C 3.7 cm/m^2 Vol/bsa, ES, 1-p A4C 10 ml/m^2 MARYANN minor ax, A4C 8.6 cm Vol, ES, 1-p A2C 66 ml MARYANN/bsa minor ax, A4C 3.7 cm/m^2 Vol/bsa, ES, 1-p A2C 29 ml/m^2 MARYANN major ax, A2C 8.6 cm Vol, ES, 2-p 42 ml ESD major ax, A2C 7.6 cm Vol/bsa, ES, 2-p 18 ml/m^2 MARYANN/bsa major ax, A2C 3.7 cm/m^2 Vol, ES, A/L 25 ml ESD/bsa major ax, A2C 3.3 cm/m^2 Vol/bsa, ES, A/L 11 ml/m^2 IVS, ED 1.2 cm ESD 4.6 cm Right atrium Value ESD/bsa 2.0 cm/m^2 Area, ES 13 cm^2 FS 7 % Area, ES, A4C 13 cm^2 PW, ED 1.2 cm IVS/PW, ED 0.98 Aortic valve Value EDV, 1-p A2C 107 ml Peak v, S 124.13 cm/sec ESV, 1-p A2C 30 ml Mean v, S 78.21 cm/sec EF, 1-p A2C 28 % VTI, S 21.0 cm EDV/bsa, 1-p A2C 46 ml/m^2 Mean grad, S 3 mm Hg ESV/bsa, 1-p A2C 13 ml/m^2 Peak grad, S 6 mm Hg EDV, 1-p A4C 117 ml LVOT/AV, VTI ratio 0.99 ESV, 1-p A4C 86 ml SARATH, VTI 2.99 cm^2 EF, 1-p A4C 27 % SARATH/bsa, VTI 1.29 cm^2/m^2 SV, 1-p A4C 32 ml LVOT/AV, Vpeak ratio 0.88 EDV/bsa, 1-p A4C 50 ml/m^2 SARATH, Vmax 2.67 cm^2 ESV/bsa, 1-p A4C 37 ml/m^2 SARATH/bsa, Vmax 1.15 cm^2/m^2 SV/bsa, 1-p A4C 14 ml/m^2 LVOT/AV, Vmean ratio 0.95 EDV, 2-p 116 ml SARATH, Vmean 2.9 cm^2 ESV, 2-p 86 ml SARATH/bsa, Vmean 1.23 cm^2/m^2 EF, 2-p 26 % SV, 2-p 77 ml Mitral valve Value EDV/bsa, 2-p 50 ml/m^2 Mean v, D 67.39 cm/sec ESV/bsa, 2-p 37 ml/m^2 Peak E 127.31 cm/sec SV/bsa, 2-p 32.9 ml/m^2 Peak A 97.94 cm/sec E', lat michelle, TDI 5.7 cm/sec VTI leaflet coapt 37.7 cm E/e', lat michelle, TDI 22 MiV/LVOT VTI 1.8 E', med michelle, TDI 3.7 cm/sec Decel slope 701.13 cm/s^2 E/e', med michelle, TDI 34 Decel time 182 ms E', avg, TDI 4.7 cm/sec PHT 91 ms E/e', avg, TDI 27 Mean grad, D 2 mm Hg Peak grad, D 7 mm Hg LVOT Value Peak E/A ratio 1.3 Diam, S 2.0 cm MVA 1.66 cm^2 Area 3.0 cm^2 MVA/bsa 0.71 cm^2/m^2 Peak mikaela, S 109.76 cm/sec MVA, PHT 2.41 cm^2 Mean mikaela, S 74.19 cm/sec MVA/bsa, PHT 1.04 cm^2/m^2 VTI, S 20.8 cm MVA, LVOT cont 1.7 cm^2 Peak grad, S 5 mm Hg MVA/bsa, LVOT cont 0.71 cm^2/m^2 Mean grad, S 3 mm Hg Vena contracta width 2.6 cm SV 63 ml Qs 13.6 L/min Tricuspid valve Value Qs/bsa 5.8 L/(min-m^2) TR peak v 256.95 cm/sec SV/bsa 27 ml/m^2 Peak RV-RA grad, S 26 mm Hg Right ventricle Value Aortic root Value MARYANN, LAX 2.6 cm Root diam 3.2 cm MARYANN, SAX 3.3 cm Root diam/bsa 1.4 cm/m^2 MARYANN minor ax, A4C 3.3 cm MARYANN 2.6 cm Inferior vena cava Value TAPSE, 2D 2.0 cm Diam 2.4 cm TAPSE, MM 2.0 cm S' lateral 8.9 cm/sec Other Value Legend: (L) and (H) scot values outside specified reference range. [facility] are accredited with the Intersocietal Accreditation Commission - Echocardiography. Prepared and Electronically Authenticated Conrado Shearer Confirmed 12/04/2024 11:13 Procedure Note Conrado Shearer MD - 12/04/2024 [facility] Echocardiography Laboratory [address] [place] [id number] Transthoracic Echocardiography Patient: Nisa Renae Study ID: ECHO COMPLETE- Gender: Manuelito : 1945 Age: 79 Room: [facility] Study Date: 12/04/2024 Pt Status: Inpatient Study Time: 08:57:28 AM CSN #: [id number] Ordering:[employer] Supervisor: Gagandeep Nava [facility] Indications and History: Hypotension or Hemodynamic Instability;Hypotension or hemodynamic instability of uncertain or suspected cardiac etiology Summary and Conclusion: - Left ventricle: The cavity size is normal. Wall thickness is increasedin a pattern of mild LVH. Global systolic function is severely reduced. The estimated ejection fraction is 25-30%. For Epic reporting: the left ventricular ejection fraction is 26% by biplane method of disks. Thereis diffuse hypokinesis. Grade II diastolic dysfunction. - Right ventricle: The cavity size is normal. Pacer wire or catheter notedin right ventricle. Systolic function is low normal to reduced. Systolic pressure is mildly increased. The estimated peak pressure is 38mm Hg. - Right atrium: Pacer wire or catheter noted in right atrium. - Aortic valve: The valve is trileaflet. The leaflets are mildlythickened. There is no stenosis. - Mitral valve: The annulus is mildly calcified. There is mild tomoderate regurgitation. - Tricuspid valve: There is moderate regurgitation. - Inferior vena cava: The IVC is dilated. Respirophasic diameter changesare blunted (< 50%), consistent with elevated central venous pressure. Comparison: Compared to the previous study, LV systolic functionhas not changed. Prior Study Date: 09/15/2024. Procedure information: Comparison is made to the study of 09/15/2024.Study status: Routine. Procedure: A transthoracic echocardiogram wasperformed. Image quality was adequate. Scanning was performed from the parasternal, apical, subcostal, and suprasternal notch acoustic windows.Study components: M-mode, 2D, complete spectral Doppler, and color Doppler. Height: 180.3cm. Height: 71in. Weight: 105.2kg. Weight: 231.9lb.BMI: 32.4kg/m^2. BSA: 2.33m^2. Blood pressure: 122/45 Studydate: 12/04/2024. Study time: 08:57 AM. Location: ICU/CCU Cardiac Anatomy: LEFT VENTRICLE: The cavity size is normal. Wall thickness is increased molina pattern of mild LVH. Global systolic function is severely reduced. The estimated ejection fraction is 25-30%. For Epic reporting: the left ventricular ejection fraction is 26% by biplane method of disks. Thereis diffuse hypokinesis. Grade II diastolic dysfunction. RIGHT VENTRICLE: The cavity size is normal. Pacer wire or catheter notedin right ventricle. Systolic function is low normal to reduced. Systolicpressure is mildly increased. The estimated peak pressure is 38mm Hg. LEFT ATRIUM: The atrium is normal in size. RIGHT ATRIUM: The atrium is normal in size. Pacer wire or catheter notedin right atrium. ATRIAL SEPTUM: No obvious PFO or ASD identified by 2D imaging and color Doppler. AORTIC VALVE: The valve is trileaflet. The leaflets are mildlythickened. Mobility is not restricted. There is no stenosis. There is nosignificant regurgitation. MITRAL VALVE: The annulus is mildly calcified. Mobility is notrestricted. No evidence for prolapse. There is no evidence for stenosis. There is mildto moderate regurgitation. TRICUSPID VALVE: Structurally normal valve. Mobility isunrestricted. There is no evidence for stenosis. There is moderate regurgitation. PULMONIC VALVE: Not well visualized. The valve appears to be grosslynormal. There is no evidence for stenosis. There is no significantregurgitation. PERICARDIUM: There is no pericardial effusion. AORTA: Aortic root: The root is not dilated. Aortic arch: The vessel is not dilated. INTRACARDIAC MASS THROMBUS: No apparent intracavitary masses or thrombi detected. Measurements Left ventricle Value Left atrium Value MARYANN, LAX 4.9 cm AP dim, ES 4.9cm ESD, LAX 4.6 cm AP dim index, ES 2.1cm/m^2 MARYANN/bsa, LAX 2.1 cm/m^2 SI dim, A4C 5.0cm ESD/bsa, LAX 2.0 cm/m^2 Area ES, A4C 12cm^2 FS, LAX 7 % Vol, S 44ml FS, LAX chord 7 % Vol/bsa, S 19ml/m^2 ESD major ax, A4C 8.6 cm Vol, ES, 1-p A4C 24ml ESD/bsa major ax, A4C 3.7 cm/m^2 Vol/bsa, ES, 1-p A4C 10ml/m^2 MARYANN minor ax, A4C 8.6 cm Vol, ES, 1-p A2C 66ml MARYANN/bsa minor ax, A4C 3.7 cm/m^2 Vol/bsa, ES, 1-p A2C 29ml/m^2 MARYANN major ax, A2C 8.6 cm Vol, ES, 2-p 42ml ESD major ax, A2C 7.6 cm Vol/bsa, ES, 2-p 18ml/m^2 MARYANN/bsa major ax, A2C 3.7 cm/m^2 Vol, ES, A/L 25ml ESD/bsa major ax, A2C 3.3 cm/m^2 Vol/bsa, ES, A/L 11ml/m^2 IVS, ED 1.2 cm ESD 4.6 cm Right atrium Value ESD/bsa 2.0 cm/m^2 Area, ES 13cm^2 FS 7 % Area, ES, A4C 13cm^2 PW, ED 1.2 cm IVS/PW, ED 0.98 Aortic valve Value EDV, 1-p A2C 107 ml Peak v, S 124.13cm/sec ESV, 1-p A2C 30 ml Mean v, S 78.21cm/sec EF, 1-p A2C 28 % VTI, S 21.0cm EDV/bsa, 1-p A2C 46 ml/m^2 Mean grad, S 3mm Hg ESV/bsa, 1-p A2C 13 ml/m^2 Peak grad, S 6mm Hg EDV, 1-p A4C 117 ml LVOT/AV, VTI ratio 0.99 ESV, 1-p A4C 86 ml SARATH, VTI 2.99cm^2 EF, 1-p A4C 27 % SARATH/bsa, VTI 1.29cm^2/m^2 SV, 1-p A4C 32 ml LVOT/AV, Vpeak ratio 0.88 EDV/bsa, 1-p A4C 50 ml/m^2 SARATH, Vmax 2.67cm^2 ESV/bsa, 1-p A4C 37 ml/m^2 SARATH/bsa, Vmax 1.15cm^2/m^2 SV/bsa, 1-p A4C 14 ml/m^2 LVOT/AV, Vmean ratio 0.95 EDV, 2-p 116 ml SARATH, Vmean 2.9cm^2 ESV, 2-p 86 ml SARATH/bsa, Vmean 1.23cm^2/m^2 EF, 2-p 26 % SV, 2-p 77 ml Mitral valve Value EDV/bsa, 2-p 50 ml/m^2 Mean v, D 67.39cm/sec ESV/bsa, 2-p 37 ml/m^2 Peak E 127.31cm/sec SV/bsa, 2-p 32.9 ml/m^2 Peak A 97.94cm/sec E', lat michelle, TDI 5.7 cm/sec VTI leaflet coapt 37.7cm E/e', lat michelle, TDI 22 MiV/LVOT VTI 1.8 E', med michelle, TDI 3.7 cm/sec Decel slope 701.13cm/s^2 E/e', med michelle, TDI 34 Decel time 182ms E', avg, TDI 4.7 cm/sec PHT 91ms E/e', avg, TDI 27 Mean grad, D 2mm Hg Peak grad, D 7mm Hg LVOT Value Peak E/A ratio 1.3 Diam, S 2.0 cm MVA 1.66cm^2 Area 3.0 cm^2 MVA/bsa 0.71cm^2/m^2 Peak mikaela, S 109.76 cm/sec MVA, PHT 2.41cm^2 Mean mikaela, S 74.19 cm/sec MVA/bsa, PHT 1.04cm^2/m^2 VTI, S 20.8 cm MVA, LVOT cont 1.7cm^2 Peak grad, S 5 mm Hg MVA/bsa, LVOT cont 0.71cm^2/m^2 Mean grad, S 3 mm Hg Vena contracta width 2.6cm SV 63 ml Qs 13.6 L/min Tricuspid valve Value Qs/bsa 5.8 L/(min-m^2) TR peak v 256.95cm/sec SV/bsa 27 ml/m^2 Peak RV-RA grad, S 26mm Hg Right ventricle Value Aortic root Value MARYANN, LAX 2.6 cm Root diam 3.2cm MARYANN, SAX 3.3 cm Root diam/bsa 1.4cm/m^2 MARYANN minor ax, A4C 3.3 cm MARYANN 2.6 cm Inferior vena cava Value TAPSE, 2D 2.0 cm Diam 2.4cm TAPSE, MM 2.0 cm S' lateral 8.9 cm/sec Other Value Legend: (L) and (H) scot values outside specified reference range. [facility] are accredited with theValleywise Health Medical Centersocietal Accreditation Commission - Echocardiography. Prepared and Electronically Authenticated Conrado Shearer Confirmed 12/04/2024 11:13 Tigist RUSSELL US ORDERABLES Final Result Performing Organization Address [facility] de Phone Number INTERFACE SYSTEM Refer to clinic/hospital department * MRSA PCR RAPID SCREEN (12/04/2024 8:29 AM CDT) MRSA PCR RESULT MRSA not detected MRSA not detected 12/04/2024 10:09 AM CDT [facility] Surveillance ANTERIOR NARES SWAB / Unknown Collection / Unknown 12/04/2024 8:29 AM CDT 12/04/2024 8:43 AM CDT Narrative [facility] - 12/04/2024 10:09 AM CDT This assay is used to detect Methicillin-Resistant S. aureus (MRSA) colonization of the nares. PLEASE NOTE: This test has not been approved to monitor effectiveness of MRSA decolonization. Residual DNA may temporarily be present after successful decolonization. This test was performed using an FDA approved screening methodology. [employer] RUSSELL MICROBIOLOGY - GENERAL ORDERABL ES Final Result Performing Organization Address [facility] de Phone Number [facility] CLIA # [id number] [address] [address] [place] [address] * (ABNORMAL) URINALYSIS WITH REFLEX MICROSCOPIC (12/04/2024 8:28 AM CDT) COLOR UA Yellow Pale to Dark Yellow 12/04/2024 8:52 AM CDT [facility] CLARITY UA Cloudy(A) Clear 12/04/2024 8:52 AM CDT [facility] SPECIFIC GRAVITY UA 1.039(H) 1.003 - 1.035 12/04/2024 8:52 AM CDT [facility] PH UA 6.0 5.0 - 8.0 12/04/2024 8:52 AM T [facility] LEUKOCYTE ESTERASE UA 3+(A) Negative 12/04/2024 8:52 AM T [facility] NITRITE UA Negative Negative 12/04/2024 8:52 AM T [facility] PROTEIN UA 3+(A) Negative 12/04/2024 8:52 AM T [facility] GLUCOSE UA 1+(A) Negative 12/04/2024 8:52 AM T [facility] KETONES UA 1+(A) Negative 12/04/2024 8:52 AM T [facility] UROBILINOGEN UA <2.0 <2.0 mg/dL 8:52 AM T [facility] BILIRUBIN UA Negative Negative 12/04/2024 8:52 AM [facility] BLOOD UA 3+(A) Negative 12/04/2024 8:52 AM T [facility] WBC UA >100(A) 0 - 2 /hpf 12/04/2024 8:52 AM [facility] RBC UA 51-100(A) 0 - 2 /hpf 12/04/2024 8:52 AM [facility] BACTERIA UA 2+(A) Negative /hpf 12/04/2024 8:52 AM [facility] EPITHELIAL CELLS, URINE 0-5 0 - 5 /hpf 12/04/2024 8:52 AM [facility] Urine URINE SPECIMEN OBTAINED BY CLEAN CATCH PROCEDURE / Unknown Collection / Unknown 12/04/2024 8:28 AM CDT 12/04/2024 8:44 AM CDT us Tigist RUSSELL URINE ORDERABLES Final Result [facility] CLIA # [id number] [address] [place] [address] * BLOOD CULTURE (12/04/2024 7:50 AM CDT) BLOOD CULTURE No growth 12/09/2024 9:31 AM CDT [facility] Blood (Peripheral) Venipuncture / Unknown 12/04/2024 7:50 AM CDT 12/04/2024 8:20 AM CDT [employer]ist RUSSELL MICROBIOLOGY - GENERAL ORDERABL ES Final Result Performing Organization Address City/[facility]/ZIP Co de Phone Number [facility] CLIA # [id number] [address] [address] [place], [place] [address] * (ABNORMAL) TROPONIN 6 HR, 5TH GEN (12/04/2024 7:50 AM CDT) TROPONIN T, 6 HR 5TH GEN 3,956(HH) <=15 ng/L 12/04/2024 9:04 AM CDT [facility] DELTA 6HR TROPONIN T % -10 See Interp. % 12/04/2024 9:04 AM CDT [facility] Blood Venipuncture / Unknown 12/04/2024 7:50 AM CDT 12/04/2024 8:23 AM CDT Narrative [facility] - 12/04/2024 9:04 AM CDT Troponin elevated. Delta not changing. Tigist RUSSELL CHEMISTRY ORDERABLES Final Resu lt Performing Organization Address City/[facility]/ZIP Co de Phone Number [facility] CLIA # [id number] [address] [address] * BLOOD CULTURE (12/04/2024 7:42 AM CDT) BLOOD CULTURE No growth 12/09/2024 9:31 AM CDT [facility] [employer] ([employer]) [facility] Blood (Peripheral) Venipuncture / Unknown 12/04/2024 7:42 AM CDT 12/04/2024 8:20 AM CDT Narrative [facility] - 12/09/2024 9:31 AM CDT Specimen processed with suboptimal blood volume collected. us Tigist RUSSELL MICROBIOLOGY - GENERAL ORDERABL ES Final Result Performing Organization Address [facility]/ZIP Co de Phone Number [facility] CLIA # [id number] [address] [address] * (ABNORMAL) POC GLUCOSE (12/04/2024 7:37 AM CDT) [facility] GLUCOSE POC 354(H) 74 - 99 mg/dL 12/04/2024 7:37 AM CDT [facility] SPECIMEN SOURCE, GLUCOSE POC Capillary 12/04/2024 7:37 AM CDT [facility] Blood, whole 12/04/2024 7:37 AM CDT 12/04/2024 7:58 AM CDT us Walt Aguero MD POINT OF CARE TESTING Final Result Performing Organization Address [facility] Co de Phone Number [facility] CLIA # [id number] [address] [address] * EKG 12-LEAD (12/04/2024 4:20 AM CDT) 12/04/2024 4:20 AM CDT Narrative INTERFACE SYSTEM - 12/04/2024 7:14 AM CDT [address] [address] Test Date: 2024-12-04 Pat Name: NISA RENAE Department: 12 Room: [address] [place] [address] Gender: Male [employer] Controller: [id number] : 1945 Requested By: Order Number: [id number] Reading MD: Warren Sweeney Measurements Intervals [place] Rate: 65 P: 0 NE: 0 QRS: -70 QRSD: 212 T: 95 QT: 500 QTc: 520 Interpretive Statements Ventricular-paced rhythm Abnormal ECG Electronically Signed On 12-04-2024 7:14:25 CDT by Warren Sweeney Procedure Note Warren Sweeney MD - 12/04/[address] [address] Test Date: 2024-12-04 Pat Name: NISA RENAE Department: 12 Room: [address] [place] [address] Gender: Male Company Controller: [id number] : 1945 Requested By: Order Number: [id number] Reading MD: Warren Sweeney Measurements Intervals [place] Rate: 65 P: 0 NE: 0 QRS: -70 QRSD: 212 T: 95 QT: 500 QTc: 520 Interpretive Statements Ventricular-paced rhythm Abnormal ECG Electronically Signed On 12-04-2024 7:14:25 CDT by Warren Sweeney us [employer]ist RUSSELL ECG ORDERABLES Final Result INTERFACE SYSTEM Refer to clinic/hospital department * (ABNORMAL) MANUAL DIFFERENTIAL (12/04/2024 3:33 AM CDT) SEGMENTED NEUTROPHILS 27(L) 36 - 66 % 12/04/2024 5:03 AM CDT [facility] LYMPHOCYTES RELATIVE 49(H) 24 - 44 % 12/04/2024 5:03 AM CDT [facility] ATYPICAL LYMPHOCYTES RELATIVE 22(H) <=1 % 12/04/2024 5:03 AM CDT [facility] MONOCYTES RELATIVE 2(L) 4 - 10 % 12/04/2024 5:03 AM CDT [facility] PLATELET EST. Decreased 12/04/2024 5:03 AM CDT [facility] NEUTROPHILS ABSOLUTE COUNT 3.43 2.00 - 8.00 K/uL 12/04/2024 5:03 AM CDT [facility] LYMPHOCYTES ABSOLUTE 6.22(H) 1.20 - 4.00 K/uL 12/04/2024 5:03 AM T [facility] ATYPICAL LYMPHS ABSOLUTE 2.79(H) <=0.00 K/uL 12/04/2024 5:03 AM T [facility] MONOCYTES ABSOLUTE 0.25 0.10 - 0.60 K/uL 12/04/2024 5:03 AM CDT [facility] ANISOCYTOSIS 1+ /hpf 12/04/2024 5:03 AM CDT [facility] POIKILOCYTES 1+ /hpf 12/04/2024 5:03 AM T [facility] POLYCHROMASIA 1+ /hpf 12/04/2024 5:03 AM [facility] HANK CELLS 1+ /hpf 12/04/2024 5:03 AM T [facility] SMUDGE CELLS Present /100 12/04/2024 5:03 AM T [facility] TOTAL CELLS COUNTED IN DIFF 100 12/04/2024 5:03 AM [facility] Blood Venipuncture / Unknown 12/04/2024 3:33 AM CDT 12/04/2024 3:36 AM CDT us Tigist RUSSELL HEMATOLOGY ORDERABLES COM Final Result [facility] CLIA # [id number] [address] [place] [address] * (ABNORMAL) TROPONIN 2 HR, 5TH GEN (12/04/2024 3:33 AM CDT) TROPONIN T, 2 HR 5TH GEN 4,870() <=15 ng/L 12/04/2024 4:55 AM T [facility] DELTA 2HR TROPONIN T % 10 See Interp. % 12/04/2024 4:55 AM CDT [facility] Blood Venipuncture / Unknown 12/04/2024 3:33 AM CDT 12/04/2024 3:37 AM CDT Narrative [facility] - 12/04/2024 4:55 AM CDT Troponin elevated. Delta not changing. us Tigist RUSSELL CHEMISTRY ORDERABLES Final Resu lt [facility] CLIA # [id number] [facility] [address] [place] [address] * (ABNORMAL) CBC WITH DIFFERENTIAL (12/04/2024 3:33 AM CDT) [facility] WBC 12.7(H) 4.8 - 10.8 K/uL 12/04/2024 5:03 AM [facility] RBC 3.45(L) 4.60 - 6.20 M/uL 12/04/2024 5:03 AM T [facility] HEMOGLOBIN 11.0(L) 14.0 - 18.0 g/dL 12/04/2024 5:03 AM [facility] HEMATOCRIT 36.4(L) 41.0 - 53.0 % 12/04/2024 5:03 AM [facility] MCV 105.5(H) 84.0 - 103.0 fL 12/04/2024 5:03 AM [facility] MCH 31.9 27.0 - 34.0 pg 12/04/2024 5:03 AM [facility] MCHC 30.2 30.0 - 35.0 g/dL 12/04/2024 5:03 AM [facility] PLATELETS 78(L) 140 - 440 K/uL 12/04/2024 5:03 AM [facility] MPV 11.3 8.9 - 12.8 fL 12/04/2024 5:03 AM [facility] RDW 19.1(H) 11.0 - 14.5 % 12/04/2024 5:03 AM CDT [facility] RDW-STDEV 74.6(H) 37.0 - 54.0 fL 12/04/2024 5:03 AM CDT [facility] SMEAR REVIEWED: - See Manual Diff. 12/04/2024 5:03 AM CDT [facility] Blood Venipuncture / Unknown 12/04/2024 3:33 AM CDT 12/04/2024 3:36 AM CDT Dustin HOPE HEMATOLOGY ORDERABLES Final R esult Performing Organization Address [facility]/ZIP Co de Phone Number [facility] CLIA # [id number] [facility] [id number] * VANCOMYCIN LEVEL RANDOM (12/04/2024 1:57 AM CDT) Pathologist [facility] VANCOMYCIN, RANDOM 19.7 5.0 - 50.0 ug/mL 12/04/2024 6:19 AM CDT [facility] Blood Venipuncture / Unknown 12/04/2024 1:57 AM CDT 12/04/2024 2:00 AM CDT Narrative [facility] - 12/04/2024 6:19 AM CDT Vancomycin Therapeutic Ranges: Vancomycin Trough: 10 - 20 mcg/mL Vancomycin Peak: 25 - 50 mcg/mL Jim Asif MD CHEMISTRY ORDERABL ES Final Result Performing Organization Address [facility]/ZIP Co de Phone Number [facility] CLIA # [id number] [facility] [address] * (ABNORMAL) PROCALCITONIN (12/04/2024 1:57 AM CDT) PROCALCITONIN 55.40(H) <=0.08 ng/mL 12/04/2024 2:53 AM CDT [facility] Blood Venipuncture / Unknown 12/04/2024 1:57 AM CDT 12/04/2024 2:00 AM CDT Narrative [facility] - 12/04/2024 2:53 AM CDT The utility of procalcitonin is limited/NOT recommended in certain populations (e.g. newborns, dialysis/ESRD, patients with recent major surgery/trauma/lopez, liver cirrhosis, viral hepatitis, certain cancers, etc.). Procalcitonin levels MUST be interpreted in the context of the patient's clinical condition and CANNOT be solely relied upon for diagnosis of infection. <0.25 ng/mL: Bacterial infection unlikely, particularly lower respiratory tract infections. <0.5 ng/mL: Low risk for progression to severe sepsis/septic shock. Localized infection possible. Measurements done early (<6 hours) after systemic process starts may still be low. 0.5-2 ng/mL: Moderate risk for progression to severe sepsis/septic shock. >2 ng/mL: High risk for progression to severe sepsis/septic shock. If antibiotics ARE administered, repeat testing is recommended every 2-3 days to help guide antibiotic cessation. Once a decrease of 80% or more has occurred from baseline, discontinuation of antibiotics should strongly be considered in clinically stable patients. Procalcitonin is produced in the setting of systemic inflammation, particularly bacterial infections. It is detectable within 2-4 hours and peaks within 6-24 hours. us Tigist RUSSELL CHEMISTRY ORDERABLES Final Resu lt [facility] CLIA # [id number] [facility] [id number] * (ABNORMAL) TROPONIN BASELINE, 5TH GEN (12/04/2024 1:57 AM CDT) [facility] TROPONIN T, BASELINE 5TH GEN 4,417(HH) <=15 ng/L 12/04/2024 3:01 AM CDT [facility] Blood Venipuncture / Unknown 12/04/2024 1:57 AM CDT 12/04/2024 2:00 AM CDT Narrative [facility] - 12/04/2024 3:01 AM CDT Troponin elevated. us Tigist RUSSELL CHEMISTRY ORDERABLES Final Resu lt [facility] CLIA # [id number] [address] [place] [address] * (ABNORMAL) BASIC METABOLIC PANEL (12/04/2024 1:57 AM CDT) SODIUM 135(L) 136 - 145 mmol/L 12/04/2024 3:01 AM [facility] POTASSIUM 6.4(HH) 3.5 - 5.1 mmol/L 12/04/2024 3:01 AM [facility] CHLORIDE 96(L) 98 - 107 mmol/L 12/04/2024 3:01 AM [facility] CO2 14(L) 22 - 29 mmol/L 12/04/2024 3:01 AM [facility] CALCIUM 9.2 8.8 - 10.2 mg/dL 12/04/2024 3:01 AM [facility] BUN 44(H) 8 - 23 mg/dL 12/04/2024 3:01 AM [facility] CREATININE 4.52(H) 0.67 - 1.17 mg/dL 12/04/2024 3:01 AM [facility] Comment:The GFR result is no t clinically significant on patients <18 or >70 years of age. GLUCOSE 261(H) 74 - 99 mg/dL 12/04/2024 3:01 AM [facility] GFR 12 mL/min/1. 73 sq meter 12/04/2024 3:01 AM [facility] Comment:eGFR calculated with 2020 CKD-EPI equation. Vegetarian diet, extremely high or low muscle mass, and may affect results. Cystatin C with Glomerular Filtration Rate is a suitable alternative for these patients. ANION GAP 25(H) 9 - 20 mmol/L 12/04/2024 3:01 AM CDT [facility] Blood Venipuncture / Unknown 12/04/2024 1:57 AM CDT 12/04/2024 2:00 AM CDT [facility] RUSSELL CHEMISTRY ORDERABLES Final Resu lt [facility] CLIA # [id number] [address] [place] [id number] documented in this encounter Visit Diagnoses Diagnosis Severe sepsis with septic shock (CMS/HCC)- Primary Unspecified septicemia Severe sepsis with septic shock (CMS/HCC) Unspecified septicemia Melena Blood in stool Acute blood loss anemia Acute posthemorrhagic anemia CLL (chronic lymphocytic leukemia) (CMS/HCC) Chronic lymphoid leukemia, without mention of having achieved remission Dilated cardiomyopathy (CMS/HCC) Other primary cardiomyopathies Acute cystitis ESRD (end stage renal disease) on dialysis ([facility]) End stage renal disease Metabolic acidosis Acidosis Thrombocytopenia Thrombocytopenia, unspecified Elevated troponin level Other abnormal blood chemistry Chronic combined systolic and diastolic CHF (congestive heart failure) (CMS/HCC) Ischemic dilated cardiomyopathy (CMS/HCC) Other specified forms of chronic ischemic heart disease Melena Blood in stool Acute blood loss anemia Acute posthemorrhagic anemia documented in this encounter Administered Medications Inactive Administered Medications - up to 3 most recent administrations Medication Order MAR Action Action Date Dose Rate Site acetaminophen (TYLENOL) tablet 650 mg 650 mg, Oral, EVERY 6 HOURS PRN, Starting on 12/04/24 at 0111, Until 12/12/24 at 0352, Other (See Comment), See admin instructions, Routine albuterol (PROVENTIL,VENTOLIN) 2.5 mg /3 mL (0.083 %) inhalation solution 10 mg 10 mg, Inhalation, ONE TIME ONLY RESPIRATORY, 1 dose, On 12/04/24 at 0330, Routine, Over 15 minutes Given 12/04/2024 3:56 AM CDT 10 mg aspirin rectal suppository 300 mg 300 mg, Rectal, ONE TIME ONLY, 1 dose, On [place] 12/05/24 at 0745, Stat Given 12/05/2024 7:45 AM CDT 300 mg atorvastatin (LIPITOR) tablet 10 mg 10 mg, Oral, DAILY AT BEDTIME, First dose on [facility] 12/04/24 at 2100, Until Discontinued, Routine Given 12/04/2024 9:15 PM CDT 10 mg atorvastatin (LIPITOR) tablet 20 mg 20 mg, Oral, DAILY AT BEDTIME, First dose (after last modification) on [place] 12/05/24 at 2100, Until Discontinued, Routine Given 12/10/2024 8:27 PM CDT 20 mg Given 12/09/2024 8:41 PM CDT 20 mg Given 12/08/2024 9:17 PM CDT 20 mg bisacodyL (DULCOLAX) rectal suppository 10 mg 10 mg, Rectal, DAILY, First dose on Fri12/06/24 at 0900, Until Discontinued, Routine Given 12/09/2024 11:2 3 AM CDT 10 mg Given 12/08/2024 9:44 AM CDT 10 mg Given 12/07/2024 11:57 AM CDT 10 mg calcium GLUCONATE 100 mg/mL (10%) injection 1,000 mg 1,000 mg, IV, ONE TIME ONLY, 1 dose, On [facility] 12/04/24 at 0330 Given 12/04/2024 3:46 AM CDT 1,000 mg cefePIME (MAXIPIME) 1,000 mg in sodium chloride 0.9% 50 mL IVPB (MBP) 1,000 mg, IV, EVERY 24 HOURS, First dose (after last modification) on [facility] 12/04/24 at 1200, Until Discontinued, Routine, Antibiotic Indication: Suspected Sepsis, Unknown Source New Bag 12/04/2024 5:16 PM CDT 1,000 mg 118 mL/hr cefTRIAXone (ROCEPHIN) 2,000 mg in sodium chloride 0.9% 50 mL IVPB (MBP) 2,000 mg, IV, EVERY 24 HOURS (DAILY), 5 doses, First dose on Fri12/06/24 at 1100, Last dose on Fri12/10/24 at 0900, Routine, Antibiotic Indication: Suspected Sepsis, Unknown Source New Bag 12/10/2024 9:21 AM CDT 2,000 mg 118 mL/h r New Bag 12/09/2024 11:20 AM CDT 2,000 mg 118 mL/hr New Bag 12/08/2024 10:01 AM CDT 2,000 mg 118 mL/hr darbepoetin janet (ARANESP) 60 mcg/mL injection 60 mcg 60 mcg, subCUT, EVERY 7 DAYS, First dose on [facility] 12/11/24 at 1500, Until Discontinued, Routine, Reason for treatment with Epoetin/Darbepoetin: 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) Given 12/11/2024 5:47 PM CDT 60 mcg Back, Left dextrose 5 % - sodium chloride 0.9 % infusion IV, at 40 mL/hr, SEE ADMIN INSTRUCTIONS, Starting on [facility] 12/04/24 at 0204, Until [place] 12/12/24 at 0352, Routine dextrose 5 % bolus solution 120 mL 120 mL, IV, ONE TIME ONLY, 1 dose, On [facility] 12/04/24 at 0330, at 40 mL/hr, Administer over 3 Hours, Routine Restarted 12/04/2024 6:41 AM CDT 40 mL/hr New Bag 12/04/2024 4:15 AM CDT 120 mL 40 mL/hr dextrose 50% (D50) syringe 12.5 Gram 12.5 Gram, IV, SEE ADMIN INSTRUCTIONS, Starting on [facility] 12/04/24 at 0204, Until [place] 12/12/24 at 0352, Routine dextrose 50% (D50) syringe 25 Gram 25 Gram, IV, SEE ADMIN INSTRUCTIONS, Starting on [facility] 12/04/24 at 0204, Until [place] 12/12/24 at 0352, Routine dextrose 50% (D50) syringe 25 Gram 25 Gram, IV, ONE TIME ONLY, 1 dose, On [facility] 12/04/24 at 0330, Routine Given 12/04/2024 3:47 AM CDT 25 Grams 999 mL/hr empagliflozin (JARDIANCE) tablet 10 mg 10 mg, Oral, DAILY EARLY, First dose on [place] 12/09/24 at 0600, Until Discontinued, Routine, Indication: Heart Failure Given 12/11/2024 9:14 AM CDT 10 mg Given 12/09/2024 5:36 AM CDT 10 mg finasteride (PROSCAR) tablet 5 mg 5 mg, Oral, DAILY, First dose on [facility] 12/04/24 at 0900, Until Discontinued, Routine Given 12/11/2024 9:15 AM CDT 5 mg Given 12/09/2024 11:19 AM CDT 5 mg Given 12/08/2024 9:45 AM CDT 5 mg glucagon HCL 1 mg/mL injection 1 mg 1 mg, IM, SEE ADMIN INSTRUCTIONS, Starting on [facility] 12/04/24 at 0204, Until Fri12/12/24 at 0352, Routine heparin in 0.45% NaCl 25,000 unit/250 mL infusion 11.5 Units/kg/hr 87.1 kg Adjusted weight (10.0165 mL/hr, rounded to 10 mL/hr), IV, TITRATE, Starting on [facility] 12/04/24 at 2045, Until Fri12/05/24 at 0358, Indication: ACS/STEMI, Dosing by: PER PROTOCOL: Delegate to facility protocol per indication, Re-bolus within Protocol? Yes, allow re-bolus Rate Verify 12/05/2024 4:20 AM CDT 11.5 Units/kg/hr 10 mL/hr Restarted 12/05/2024 3:26 AM CDT 11.5 Units/kg/hr 10 mL/h r Rate Change 12/05/2024 12:21 AM CDT 11.5 Units/kg/hr 10 mL /hr heparin in 0.45% NaCl 25,000 unit/250 mL infusion 19.5 Units/kg/hr 87.1 kg Adjusted weight (16.9845 mL/hr, rounded to 17 mL/hr), IV, TITRATE, Starting on [place] 12/05/24 at 0400, Until 12/07/24 at 1449, Indication: ACS/STEMI, Dosing by: PER PROTOCOL: Delegate to facility protocol per indication, Re-bolus within Protocol? Yes, allow re-bolus New Bag 12/07/2024 7:26 AM CDT 19.5 Units/kg/hr 17 mL/hr Rate Verify 12/07/2024 12:57 AM CDT 19.5 Units/kg/hr 17 mL /hr Rate Change 12/07/2024 12:57 AM CDT 19.5 Units/kg/hr 17 mL /hr heparin injection 1,300 Units 1,300 Units (rounded from 1,293 Units = 15 Units/kg 86.2 kg Adjusted weight), IV, ONE TIME ONLY, 1 dose, On Fri12/06/24 at 1115, Routine Given 12/06/2024 11:27 AM CDT 1,300 Units heparin injection 1,300 Units 1,300 Units (rounded from 1,293 Units = 15 Units/kg 86.2 kg Adjusted weight), IV, ONE TIME ONLY, 1 dose, On Fri12/07/24 at 0100, Routine Given 12/07/2024 1:17 AM CDT 1,300 Units heparin injection 2,600 Units 2,600 Units (rounded from 2,613 Units = 30 Units/kg 87.1 kg Adjusted weight), IV, ONE TIME ONLY, 1 dose, On Fri12/05/24 at 0400, Routine Given 12/05/2024 4:17 AM CDT 2,600 Units heparin injection 2,600 Units 2,600 Units (rounded from 2,613 Units = 30 Units/kg 87.1 kg Adjusted weight), IV, ONE TIME ONLY, 1 dose, On Fri12/05/24 at 2030, Routine Given 12/05/2024 9:01 PM CDT 2,600 Units heparin injection 2,600 Units 2,600 Units (rounded from 2,586 Units = 30 Units/kg 86.2 kg Adjusted weight), IV, ONE TIME ONLY, 1 dose, On Fri12/06/24 at 0430, Routine Given 12/06/2024 4:42 AM CDT 2,600 Units heparin injection 4,000 Units 4,000 Units, IV, ONE TIME ONLY, 1 dose, On Fri12/04/24 at 2045, RoutineIndications:ACS/S FAN Given 12/04/2024 9:14 PM CDT 4,000 Units heparin injection 5,000 Units 5,000 Units, subCUT, EVERY 8 HOURS, First dose on Fri12/04/24 at 0545, Until Discontinued, Routine Given 12/04/2024 5:50 AM CDT 5,000 Units Abdomen, Right Lower Quadrant heparin injection 5,000 Units 5,000 Units, subCUT, EVERY 8 HOURS, First dose on Fri12/07/24 at 2100, Until Discontinued, Routine, On hold since Fri12/08/2024 at 1309 until manually unheld Given 12/08/2024 1:00 PM CDT 5,000 Units Abdomen, Left Lower Quadrant hydrALAZINE (APRESOLINE) 20 mg/mL injection 10 mg 10 mg, IV, EVERY 4 HOURS PRN, Starting on 12/04/24 at 0200, Until 12/12/24 at 0352, Blood Pressure, sbp >160, Routine insulin glargine (LANTUS) injection 10 Units 10 Units (rounded from 10.48 Units = 0.1 Units/kg 104.8 kg), subCUT, DAILY WITH BREAKFAST, First dose on 12/05/24 at 0100, Until Discontinued, Routine Given 12/05/2024 8:00 AM CDT 10 Units Ankle, Right Given 12/05/2024 2:41 AM CDT 10 Units Ab domen, Right Lower Quadrant insulin glargine (LANTUS) injection 10 Units 10 Units (rounded from 10.48 Units = 0.1 Units/kg 104.8 kg), subCUT, TWO TIMES DAILY, First dose (after last modification) on 12/05/24 at 2100, Until Discontinued, Routine Given 12/06/2024 8:31 AM CDT 10 Units Abdomen, Left Lower Quadrant Given 12/05/2024 9:07 PM CDT 10 Units Ab domen, Right Lower Quadrant insulin glargine (LANTUS) injection 14 Units 14 Units, subCUT, TWO TIMES DAILY, First dose (after last modification) on 12/06/24 at 2100, Until Discontinued, Routine Given 12/11/2024 9:12 AM CDT 14 Units Abdomen, Left Lower Quadrant Given 12/10/2024 8:35 PM CDT 14 Units Ar m, Left Upper Given 12/09/2024 8:38 PM CDT 14 Units Ab dominal Tissue insulin glargine (LANTUS) injection 4 Units 4 Units, subCUT, ONE TIME ONLY, 1 dose, On 12/06/24 at 1330, Routine Given 12/06/2024 2:24 PM CDT 4 Units Arm, Right Upper insulin lispro (HumaLOG,ADMELOG) injection 0-12 Units 0-12 Units, subCUT, THREE TIMES DAILY WITH MEALS, First dose on 12/04/24 at 0800, Until Discontinued, Routine Given 12/04/2024 11:53 AM CDT 10 Units Abdomen, Left Lower Quadrant Given 12/04/2024 7:41 AM CDT 10 Units Ab domen, Right Lower Quadrant insulin lispro (HumaLOG,ADMELOG) injection 0-18 Units 0-18 Units, subCUT, THREE TIMES DAILY WITH MEALS, First dose on 12/05/24 at 0800, Until Discontinued, Routine Given 12/11/2024 9:13 AM CDT 3 Units Abdomen, Right Upper Quadrant Given 12/09/2024 11:26 AM CDT 3 Units A bdominal Tissue Given 12/08/2024 12:58 PM CDT 6 Units A bdomen, Left Lower Quadrant insulin lispro (HumaLOG,ADMELOG) injection 0-6 Units 0-6 Units, subCUT, DAILY AT BEDTIME, First dose on 12/04/24 at 2100, Until Discontinued, Routine Given 12/04/2024 9:17 PM CDT 4 Units Abdomen, Left Lower Quadrant insulin lispro (HumaLOG,ADMELOG) injection 0-9 Units 0-9 Units, subCUT, DAILY AT BEDTIME, First dose on 12/05/24 at 2100, Until Discontinued, Routine insulin lispro (HumaLOG,ADMELOG) injection 0-9 Units 0-9 Units, subCUT, DAILY 0200, First dose on 12/05/24 at 0200, Until Discontinued, Routine Given 12/11/2024 2:55 AM CDT 3 Units Arm, Right Upper Given 12/05/2024 1:53 PM CDT 3 Units Ar m, Right Upper Given-See Override 12/05/2024 8:00 AM CDT 3 Units Arm, Right Upper insulin lispro (HumaLOG,ADMELOG) injection 5 Units 5 Units, subCUT, FOUR TIMES DAILY WITH MEALS AND AT BEDTIME, First dose on 12/05/24 at 1700, Until Discontinued, Routine Given 12/11/2024 5:51 PM CDT 5 Units Abdomen, Right Upper Quadrant Given 12/11/2024 9:13 AM CDT 5 Units Ab domen, Right Upper Quadrant Given 12/10/2024 8:35 PM CDT 5 Units Ar m, Left Upper insulin regular (HumuLIN R,NovoLIN R) injection 10 Units 10 Units, IV, ONE TIME ONLY, 1 dose, On 12/04/24 at 0330, Stat Given 12/04/2024 4:07 AM CDT 10 Units midodrine (PROAMATINE) tablet 5 mg 5 mg, Oral, EVERY 8 HOURS PRN, Starting on 12/06/24 at 1050, Until 12/12/24 at 0352, Other (See Comment), MAP < 60, Routine Given 12/09/2024 7:18 AM CDT 5 mg Given 12/06/2024 11:14 AM CDT 5 mg naloxone (NARCAN) 0.4 mg/mL injection 0.1-0.4 mg 0.1-0.4 mg, IV, SEE ADMIN INSTRUCTIONS, Starting on 12/04/24 at 0109, Until 12/12/24 at 0352, Routine ondansetron (ZOFRAN) 4 mg/2 mL injection 4 mg 4 mg, IV, EVERY 6 HOURS PRN, Starting on 12/04/24 at 0112, Until 12/12/24 at 0352, Nausea/Emesis, Routine Given 12/08/2024 5:55 AM CDT 4 mg Given 12/05/2024 6:09 AM CDT 4 mg Given 12/04/2024 11:33 PM CDT 4 mg oxyCODONE-acetaminophen (PERCOCET) 5-325 mg per tablet 1 Tablet 1 Tablet, Oral, EVERY 4 HOURS PRN, Starting on 12/04/24 at 0205, Until 12/12/24 at 0352, Pain (See admin instructions), Routine Given 12/08/2024 2:42 PM CDT 1 Tablet pantoprazole (PROTONIX) 40 mg in sodium chloride 0.9% 10 mL injection 40 mg, IV, TWO TIMES DAILY, First dose on [place] 12/09/24 at 1430, Until Discontinued, Routine, For vial+diluent: 10 mL NS is needed to reconstitute pantoprazole vial. For doses less than 40 mg Epic may default less than 10 mL NS. Pharmacist to change NS dispense amount to 10 mL., Indication: Upper gastrointestinal (GI) bleed Given 12/11/2024 9:14 AM CDT 40 mg Given 12/10/2024 8:28 PM CDT 40 mg Given 12/10/2024 9:26 AM CDT 40 mg perflutren lipid microspheres (DEFINITY) 1.1 mg/mL injection 1.3 mL 1.3 mL, IV, INTRA-PROCEDURE ONCE, 1 dose, Starting on 12/04/24 at 1040, Until 12/04/24 at 0930, Routine Contrast Given 12/04/2024 9:30 AM CDT 0.26 mL polyethylene glycol (MIRALAX) packet 17 Gram 17 Gram, Oral, TWO TIMES DAILY, First dose on 12/06/24 at 0900, Until Discontinued, Routine Given 12/09/2024 8:39 PM CDT 17 Grams Given 12/09/2024 11:23 AM CDT 17 Grams Given 12/08/2024 9:53 AM CDT 17 Grams prochlorperazine (COMPAZINE) injection 5 mg 5 mg, IV, EVERY 6 HOURS PRN, Starting on 12/05/24 at 0742, Until 12/12/24 at 0352, Nausea/Emesis, Routine Given 12/05/2024 10:31 AM CDT 5 mg sodium chloride 0.9 % bolus solution 1,000 mL 1,000 mL, See Admin Instructions, ONE TIME ONLY, 1 dose, On 12/04/24 at 1230, at 2,000 mL/hr, Administer over 30 Minutes, Routine New Bag 12/04/2024 12:28 PM CDT 1,000 mL 2000 mL/hr Other (Comment) sodium chloride 0.9 % bolus solution 1,000 mL 1,000 mL, See Admin Instructions, ONE TIME ONLY, 1 dose, On 12/07/24 at 0645, at 2,000 mL/hr, Administer over 30 Minutes, Routine New Bag 12/07/2024 7:04 AM CDT 1,000 mL 2000 mL/hr Other (Comment) sodium chloride 0.9 % bolus solution 1,000 mL 1,000 mL, See Admin Instructions, ONE TIME ONLY, 1 dose, On 12/11/24 at 1145, at 2,000 mL/hr, Administer over 30 Minutes, Routine New Bag 12/11/2024 11:45 AM CDT 1,000 mL 2000 mL/hr Other (Comment) sodium chloride flush injection 10 mL 10 mL, IV, TWO TIMES DAILY, First dose on 12/04/24 at 2100, Until Discontinued, Routine Given 12/11/2024 9:10 AM CDT 10 mL Given 12/10/2024 8:27 PM CDT 10 mL Given 12/10/2024 9:23 AM CDT 10 mL sodium chloride flush injection 10 mL 10 mL, IV, SEE ADMIN INSTRUCTIONS, Starting on 12/04/24 at 1958, Until 12/12/24 at 0352, Routine tamsulosin (FLOMAX) SR 24 hour capsule 0.4 mg 0.4 mg, Oral, DAILY AFTER SUPPER, First dose on Fri12/04/24 at 1800, Until Discontinued, Routine Given 12/11/2024 5:47 PM CDT 0.4 mg Given 12/10/2024 5:45 PM CDT 0.4 mg Given 12/09/2024 6:09 PM CDT 0.4 mg zinc OXIDE-cod liver oil (DESITIN) 40 % topical paste Topical, TWO TIMES DAILY, First dose on Fri12/07/24 at 2100, Until Discontinued, Routine Given 12/11/2024 9:00 AM CDT Coccyx Given 12/10/2024 8:28 PM CDT Bi lateral buttocks Given 12/10/2024 9:58 AM CDT Co ccyx documented in this encounter Active and Recently Administered Medications Times are shown in CDT. Scheduled Medication Order 12/09/2024 12/10/2024 12/11/2024 aluminum - magnesium - simethicone (MYLANTA) 200-200-20 mg/5 mL oral suspension 20 mL 20 mL, Oral, ONE TIME ONLY, 1 dose, On 12/04/24 at 0700, Routine atorvastatin (LIPITOR) tablet 20 mg 20 mg, Oral, DAILY AT BEDTIME, First dose (after last modification) on Fri12/05/24 at 2100, Until Discontinued, Routine 2040 (Given - Provider: RASTA Castellon) 2026 (Given - Provider: RASTA Castellon) bisacodyL (DULCOLAX) rectal suppository 10 mg 10 mg, Rectal, DAILY, First dose on Fri12/06/24 at 0900, Until Discontinued, Routine 1122 (Given - Provider: RASTA Morillo) 921 (Not Given - Provider: Shana Florez RN - Reason: Strict NPO) 0900 (Refused - Provider: Michelle Donnelly LPN) cefTRIAXone (ROCEPHIN) 2,000 mg in sodium chloride 0.9% 50 mL IVPB (MBP) (COMPLETED) 2,000 mg, IV, EVERY 24 HOURS (DAILY), 5 doses, First dose on 12/06/24 at 1100, Last dose on Fri12/10/24 at 0900, Routine, Antibiotic Indication: Suspected Sepsis, Unknown Source 1120 (New Bag - Provider: RATSA Morillo)1150 (Stopped - Provider: RASTA Morillo) 0921 (New Bag - Provider: Shana Florez RN)0951 (Stopped - Provider: Shana Florez RN) darbepoetin janet (ARANESP) 60 mcg/mL injection 60 mcg 60 mcg, subCUT, EVERY 7 DAYS, First dose on 12/11/24 at 1500, Until Discontinued, Routine, Reason for treatment with Epoetin/Darbepoetin: 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) 1746 (Given - Provider: Michelle Donnelly LPN) dextrose 5 % - sodium chloride 0.9 % infusion IV, at 40 mL/hr, SEE ADMIN INSTRUCTIONS, Starting on 12/04/24 at 0204, Until 12/12/24 at 0352, Routine dextrose 50% (D50) syringe 12.5 Gram 12.5 Gram, IV, SEE ADMIN INSTRUCTIONS, Starting on 12/04/24 at 0204, Until 12/12/24 at 0352, Routine dextrose 50% (D50) syringe 25 Gram 25 Gram, IV, SEE ADMIN INSTRUCTIONS, Starting on 12/04/24 at 0204, Until 12/12/24 at 0352, Routine empagliflozin (JARDIANCE) tablet 10 mg 10 mg, Oral, DAILY EARLY, First dose on [place] 12/09/24 at 0600, Until Discontinued, Routine, Indication: Heart Failure 0536 (Given - Provider: Odette Patterson RN) 0730 (Not Given - Provider: Shana Florez RN - Reason: Strict NPO - Comment: Dr. Lema notifed) 0914 (Given - Provider: Michelle Donnelly LPN) finasteride (PROSCAR) tablet 5 mg 5 mg, Oral, DAILY, First dose on 12/04/24 at 0900, Until Discontinued, Routine 1119 (Given - Provider: RASTA Morillo) 0922 (Not Given - Provider: Shana Florez RN - Reason: Strict NPO) 0915 (Given - Provider: Michelle Donnelly LPN) glucagon HCL 1 mg/mL injection 1 mg 1 mg, IM, SEE ADMIN INSTRUCTIONS, Starting on 12/04/24 at 0204, Until 12/12/24 at 0352, Routine heparin injection 5,000 Units 5,000 Units, subCUT, EVERY 8 HOURS, First dose on Fri12/07/24 at 2100, Until Discontinued, Routine, On hold since Fri12/08/2024 at 1309 until manually unheld 0500 (Automatically Held - Provider: Jazmin Lema MD)1300 (Automatically Held - Provider: Jazmin Lema MD)2100 (Automatically Held - Provider: Jazmin Lema MD) 0500 (Automatically Held - Provider: Jazmin Lema MD)1300 (Automatically Held - Provider: Jazmin Lema MD)2100 (Automatically Held - Provider: Jazmin Lema MD) 0500 (Automatically Held - Provider: Jazmin Lema MD)1300 (Automatically Held - Provider: Jazmin Lema MD) insulin glargine (LANTUS) injection 14 Units 14 Units, subCUT, TWO TIMES DAILY, First dose (after last modification) on Fri12/06/24 at 2100, Until Discontinued, Routine 1125 (Given - Provider: RASTA Morillo)2037 (Given - Provider: RASTA Castellon) 1002 (Refused - Provider: Shana Florez RN)2034 (Given - Provider: RASTA Castellon) 0912 (Given - Provider: Michelle Donnelly LPN) insulin lispro (HumaLOG,ADMELOG) injection 0-18 Units 0-18 Units, subCUT, THREE TIMES DAILY WITH MEALS, First dose on Fri12/05/24 at 0800, Until Discontinued, Routine 0800 (Not Given - Provider: RASTA Morillo - Reason: Patient off unit)1126 (Given - Provider: RASTA Morillo)1700 (Not Given - Provider: RASTA Morillo - Reason: Lab results / vitals - Comment: bg 119) 0800 (Not Given - Provider: Shana Florez RN - Reason: Strict NPO)1254 (Not Given - Provider: Shana Florez RN - Reason: Lab results / vitals)1747 (Not Given - Provider: Shana Florez RN - Reason: Lab results / vitals) 0913 (Given - Provider: Michelle Donnelly LPN)1230 (Not Given - Provider: Dustin Stokes RN - Reason: Lab results / vitals - Comment: 119)1751 (Not Given - Provider: Michelle Donnelly LPN - Reason: Lab results / vitals) insulin lispro (HumaLOG,ADMELOG) injection 0-9 Units 0-9 Units, subCUT, DAILY AT BEDTIME, First dose on 12/05/24 at 2100, Until Discontinued, Routine 2100 (Not Given - Provider: RASTA Castellon - Reason: Lab results / vitals - Comment: bg 129) 2100 (Not Given - Provider: RASTA Castellon - Reason: Lab results / vitals - Comment: bg 192) insulin lispro (HumaLOG,ADMELOG) injection 0-9 Units 0-9 Units, subCUT, DAILY 0200, First dose on 12/05/24 at 0200, Until Discontinued, Routine 0200 (Not Given - Provider: Odette Patterson RN - Reason: Lab results / vitals) 0200 (Not Given - Provider: RASTA Castellon - Reason: Lab results / vitals - Comment: BG 106) 0255 (Given - Provider: RASTA Castellon - Comment: bg 299) insulin lispro (HumaLOG,ADMELOG) injection 5 Units 5 Units, subCUT, FOUR TIMES DAILY WITH MEALS AND AT BEDTIME, First dose on 12/05/24 at 1700, Until Discontinued, Routine 0800 (Not Given - Provider: RASTA Morillo - Reason: Patient off unit)1133 (Given - Provider: RASTA Morillo)1809 (Given - Provider: RASTA Morillo)2038 (Given - Provider: RASTA Castellon) 0800 (Not Given - Provider: Shana Florez RN - Reason: Strict NPO)1200 (Not Given - Provider: Shana Florez RN - Reason: Lab results / vitals)1748 (Not Given - Provider: Shana Florez RN - Reason: Lab results / vitals)2034 (Given - Provider: RASTA Castellon) 0913 (Given - Provider: Michelle Donnelly LPN)1200 (Not Given - Provider: Michelle Donnelly LPN - Reason: Patient off unit)1751 (Given - Provider: Michelle Donnelly LPN) naloxone (NARCAN) 0.4 mg/mL injection 0.1-0.4 mg 0.1-0.4 mg, IV, SEE ADMIN INSTRUCTIONS, Starting on 12/04/24 at 0109, Until 12/12/24 at 0352, Routine pantoprazole (PROTONIX) 40 mg in sodium chloride 0.9% 10 mL injection 40 mg, IV, TWO TIMES DAILY, First dose on [place] 12/09/24 at 1430, Until Discontinued, Routine, For vial+diluent: 10 mL NS is needed to reconstitute pantoprazole vial. For doses less than 40 mg Epic may default less than 10 mL NS. Pharmacist to change NS dispense amount to 10 mL., Indication: Upper gastrointestinal (GI) bleed 1449 (Given - Provider: RASTA Morillo)2038 (Given - Provider: RASTA Castellon) 0926 (Given - Provider: Shana Florez RN)2027 (Given - Provider: RASTA Castellon) 0914 (Given - Provider: Michelle Donnelly LPN) polyethylene glycol (MIRALAX) packet 17 Gram 17 Gram, Oral, TWO TIMES DAILY, First dose on 12/06/24 at 0900, Until Discontinued, Routine 1123 (Given - Provider: RASTA Morillo)2038 (Given - Provider: RASTA Castellon) 0923 (Not Given - Provider: Shana Florez RN - Reason: Strict NPO)2100 (Not Given - Provider: RASTA Castellon - Reason: Patient condition - Comment: patient having loose stools) 0900 (Refused - Provider: Michelle Donnelly LPN) sodium chloride 0.9 % bolus solution 1,000 mL (COMPLETED) 1,000 mL, See Admin Instructions, ONE TIME ONLY, 1 dose, On 12/11/24 at 1145, at 2,000 mL/hr, Administer over 30 Minutes, Routine 1145 (New Bag - Provider: Dustin Stokes RN)1215 (Stopped - Provider: Dustin Stokes RN) sodium chloride flush injection 10 mL 10 mL, IV, TWO TIMES DAILY, First dose on Fri12/04/24 at 2100, Until Discontinued, Routine 1139 (Given - Provider: RASTA Morillo)2038 (Given - Provider: RASTA Castellon) 0923 (Given - Provider: Shana Florez RN)2026 (Given - Provider: RASTA Castellon) 0910 (Given - Provider: Michelle Donnelly LPN) sodium chloride flush injection 10 mL 10 mL, IV, SEE ADMIN INSTRUCTIONS, Starting on 12/04/24 at 1958, Until 12/12/24 at 0352, Routine tamsulosin (FLOMAX) SR 24 hour capsule 0.4 mg 0.4 mg, Oral, DAILY AFTER SUPPER, First dose on 12/04/24 at 1800, Until Discontinued, Routine 1809 (Given - Provider: RASTA Morillo) 1745 (Given - Provider: Shana Florez RN) 1747 (Given - Provider: Michelle Donnelly LPN) zinc OXIDE-cod liver oil (DESITIN) 40 % topical paste Topical, TWO TIMES DAILY, First dose on Fri12/07/24 at 2100, Until Discontinued, Routine 1138 (Given - Provider: RASTA Morillo)2039 (Given - Provider: RASTA Castellon) 0958 (Given - Provider: Shana Florez RN)2027 (Given - Provider: RASTA Castellon) 0900 (Given - Provider: Michelle Donnelly LPN) PRN Medication Order 12/09/2024 12/10/2024 12/11/2024 acetaminophen (TYLENOL) tablet 650 mg 650 mg, Oral, EVERY 6 HOURS PRN, Starting on 12/04/24 at 0111, Until 12/12/24 at 0352, Other (See Comment), See admin instructions, Routine hydrALAZINE (APRESOLINE) 20 mg/mL injection 10 mg 10 mg, IV, EVERY 4 HOURS PRN, Starting on 12/04/24 at 0200, Until 12/12/24 at 0352, Blood Pressure, sbp >160, Routine midodrine (PROAMATINE) tablet 5 mg 5 mg, Oral, EVERY 8 HOURS PRN, Starting on 12/06/24 at 1050, Until 12/12/24 at 0352, Other (See Comment), MAP < 60, Routine 0718 (Given - Provider: Lexi Bell RN) ondansetron (ZOFRAN) 4 mg/2 mL injection 4 mg 4 mg, IV, EVERY 6 HOURS PRN, Starting on 12/04/24 at 0112, Until 12/12/24 at 0352, Nausea/Emesis, Routine oxyCODONE-acetaminophen (PERCOCET) 5-325 mg per tablet 1 Tablet 1 Tablet, Oral, EVERY 4 HOURS PRN, Starting on 12/04/24 at 0205, Until 12/12/24 at 0352, Pain (See admin instructions), Routine prochlorperazine (COMPAZINE) injection 5 mg 5 mg, IV, EVERY 6 HOURS PRN, Starting on 12/05/24 at 0742, Until 12/12/24 at 0352, Nausea/Emesis, Routine documented in this encounter Care Teams Hospital Clerk Relationship Specialty Start Date End Date Paula Sandoval MD [address] [place] [id number] PCP - General Family Practice 10/18/24 documented as of this encounter
--- OUTSIDE RECORDS SUMMARY | 2024-12-15 06:20 | XMS_ITS | Encounter Summary ---
Author Name [facility] Organization [facility] Address [address] [place] [address] Care Team Providers Care Ems Manager Name Role Phone TTAO BARRAZA Primary Care Provider Unavailabl e Insurance [...] PART A Feb 21, 2009 PART A [id number] ANGELLA MARTIN PATIENT MEDICARE (WNR) MEDICARE (M) PART B Feb 21, 2009 PART B [id number] ANGELLA MARTIN PATIENT MEDICARE (WNR) MEDICARE (M) PART A Feb 21, 2009 PART A [id number] [phone] ANGELLA MARTIN PATIENT MEDICARE (WNR) MEDICARE (M) PART B Feb 21, 2009 PART B [id number] ANGELLA MARTIN PATIENT MEDICARE (WNR) MEDICARE (M) PART A Feb 21, 2009 PART A [id number] [phone] ANGELLA MARTIN PATIENT MEDICARE (WNR) MEDICARE (M) PART B Feb 21, 2009 PART B [id number] MARIOANGELLA Livier PATIENT [employer] [place] [employer] PL[employer] F MEDIC ARE SUPPL EMENT 2013 PLAN F [id number] [phone] ANGELLA MARTIN PATIENT [employer] [place] [employer] [place] MEDIC ARE SUPPL EMENT 2013 PLAN F [id number] [phone] ANGELLA MARTIN PATIENT Selected Encounter This section includes the information on record at [place] for the Encounter. Date/Time Encounter Type Encounter Description Reason Pro vider Source Dec 15, 2024 11:20 AM Outpatient Encounter ADMIN PAT ACTIVTIES (MASNONCT) I[facility] Encounter Template Text not used by [place] Plan of Treatment: Future Appointments (+ 6 months) and Future Tests (+/- 45 days) The Plan of Treatment section includes future care activities for the patient from all [place] treatmentfacilities. This section includes future appointments and future orders which are active, pending or scheduled. Future Appointments This section includes appointments that were scheduled to occur 6 months from the date of the Encounter, up to a maximum of 20 appointments. The data comes from all [place] treatment facilities. Appointment Date/Time Appointment Type Appointme nt Facility Name Dec 22, 2024 10:30 AM AMBULATORY - MEDICINE [facility] Lab Results: +/- 30 days of the encounter This section includes the Chemistry and Hematology Lab Results on record with [place] for the patient. Radiology Reports and Pathology Reports are provided separately, in subsequent sections. Lab Results This section contains the Chemistry/Hematology Results that were resulted 30 days before or 30 daysafter the date of the Encounter. Date/Time Source Result Type Result - Unit Interpretation Reference Range Specimen Type Comment Dec 01, 2024 09:24 AM [facility] HGA1C BLOOD Specimen Type: BLOOD No comment entered. Ordering Provider: TATO BARRAZA Report Released Date/Time: Dec 09, 2023 10:52 AM Reporting Lab: [place] [facility] [address] [place] [address] Performing Lab: [place] [facility] [address] [place] [address] HGA1C 7.4 H 4.0-6.0 Dec 01, 2024 09:24 AM [facility] TSH (MA-PB) SERUM Specimen Typ e: SERUM No comment entered. Ordering Provider: TATO BARRAZA Report Released Date/Time: Dec 09, 2023 10:52 AM Reporting Lab: [place] [facility] [address] [place] [address] Performing Lab: [place] [facility] [address] [place] [address] TSH 4.243 u[IU]/mL 0.47-5 Dec 01, 2024 09:24 AM [facility] URINE ALBUMIN PROFILE-ih (PB) URINE Specimen Type: URINE No comment entered. Ordering Provider: TATO BARRAZA Report Released Date/Time: Dec 09, 2023 10:52 AM Reporting Lab: [place] [facility] [address] [place] [address] Performing Lab: [place] [facility] [address] [place] [address] URINE ALBUMIN (PB-STL) 417.30 mg/L uACR (PB-MA) 346.62 mg/g H 0-30 CREATININE URINE/OTHERS 120.39 mg/dL Dec 01, 2024 09:24 AM [facility] CHOLESTEROL PANEL (PB) PLASMA Specimen Type: P LASMA No comment entered. Ordering Provider: TATO BARRAZA Report Released Date/Time: Dec 09, 2023 10:52 AM Reporting Lab: [place] [facility] [address] [place] [address] Performing Lab: [place] [facility] [address] [place] [address] CHOLESTEROL 84 mg/dL 0-200 TRIGLYCERIDE 103 mg/dL 0-150 CALCULATED LDL 27.9 mg/dL HDL(New) 35.5 mg/dL L >40 HDL % OF TOTAL CHOLESTEROL (PB) 42.3 >25 Dec 01, 2024 09:24 AM [facility] COMPREHENSIVE METABOLIC PANEL PLASMA Specimen Type: PLASMA No comment entered. Ordering Provider: TATO BARRAZA Report Released Date/Time: Dec 09, 2023 10:52 AM Reporting Lab: [place] [facility] [address] [place] [address] Performing Lab: [place] [facility] [address] [place] [address] CREATININE 3.11 mg/dL H 0.7-1.3 UREA NITROGEN 24 mg/dL 9-25 GLUCOSE 212 mg/dL H 72-99 SODIUM 137 meq/L 136-145 POTASSIUM 4.6 meq/L 3.5-5 CHLORIDE 100 meq/L 98-107 CARBON DIOXIDE 27 meq/L 22-31 CALCIUM 8.9 mg/dL 8.4-10.4 PROTEIN 6.1 g/dL 6-8.6 ALBUMIN 4.1 g/dL 3.4-5 TOTAL BILIRUBIN 1.2 mg/dL 0.2-1.2 ALKALINE PHOSPHATASE 105 U/L 40-150 AST/SGOT 10 U/L 5-34 ALT/SGPT <7 U/L L 8-40 EGFR (CKD-EPI 2020) Dec 01, 2024 09:24 AM [facility] CBC BLOOD Specimen Type: BLOOD No comment entered. Ordering Provider: TATO BARRAZA Report Released Date/Time: Dec 09, 2023 10:52 AM Reporting [facility]: [facility] [address] [place] [address] Performing Lab: [facility] [address] [place] [address] WBC 59.9 10*3/uL H 3.6-11.2 RBC 3.15 10*6/uL L 4.10-5.70 HGB 9.6 g/dL L 13.1-16.8 HCT 31.9 L 38.2-48.4 MCV 101.3 fL H 80.0-100.0 MCH 30.5 pg 27.0-34.0 MCHC 30.1 g/dL L 33.0-36.0 PLT 100 10*3/uL L 150-400 MPV 9.2 fL 7.5-11.2 NEUTROPHILS 5 MONOCYTES 1 PLT. (SMEAR EST.) DECREASED ADEQUATE ANISOCYTOSIS 1+ SMUDGE CELLS 1+ RDW 18.4 H 11.8-15.1 LYMPHOCYTES 70 LYMPHOCYTES, AUTO % 94.2 MONOCYTES, AUTO % 1.6 NEUTROPHILS, AUTO % 3.5 EOSINOPHILS, AUTO % 0.5 BASOPHILS, AUTO % 0.1 LYMPHOCYTES, ABSOLUTE 56.46 10*3/uL H 0.77 -4.50 MONOCYTES, ABSOLUTE 0.97 10*3/uL H 0.19-0. 8 NEUTROPHILS, ABSOLUTE 2.12 10*3/uL 2.10- 8.00 EOSINOPHILS, ABSOLUTE 0.27 10*3/uL 0.00- 0.60 BASOPHILS, ABSOLUTE 0.04 10*3/uL 0.00-0. 20 ATYPICAL LYMPHOCYTES 24 IMMATURE PLT FRACTION 1.8 1.0-7.0 IMMATURE GRANS, AUTO % 0.1 IMMATURE GRANS, AUTO ABS 0.07 10*3/uL H 0. 00-0.05 NORMRBC NO IG#-MDIFF 0.00 10*3/uL >0.00 MONO#-MDIFF 0.60 10*3/uL 0.19-0.8 LYMPH#-MDIFF 41.93 10*3/uL H 0.77-4.50 NEUT#-MDIFF 3.00 10*3/uL 2.10-8.00 Encounter Notes: All associated encounter notes This section contains the clinical notes associated to the Encounter. Date/Time Encounter Note(s) Provider Source Dec 15, 2024 10:20 AM ADMINISTRATIVE NOT E: LOCAL TITLE: CCC: SCHEDULING ADMINISTRATION STANDARD TITLE: ADMINISTRATIVE NOTE DATE OF NOTE: DEC 15, 2024@10:20:49 ENTRY DATE: DEC 15, 2024@10:20:49 AUTHOR: RYNE RENDON EXP COSIGNER: URGENCY: STATUS: COMPLETED Caller Verification Emergency Contact: ILANA MARIO Emergency Contact Caller/Recipient Relation to Patient: Self Caller Name: NISA MARTIN Administrative Administrative Note Reason: Outside Care Performed Administrative Note Comments: Vet would like a callback to schedule pcp care appt due to most recent hospital discharge Best contact: IMPORTANT: This note was created by [facility] staff. Please do not alert the staff member by adding them as a signer for future communications. Alerts are not monitored by this user. /[email or web address]/ RYNE RENDON [employer] Designer Signed: 12/15/2024 10:20 Receipt Acknowledged By: 12/15/2024 10:40 /[email or web address]/ RYNE WONG [facility]
--- OUTSIDE RECORDS SUMMARY | 2024-12-17 08:57 | XMS_ITS | Continuity of Care Document ---
Author Name [facility] Organization [facility] Care Team Providers Care Side Laster Staple Name Role Phone [facility] Unavailable Unavailable Problems Combined list of problems from Department of Defense and Veterans Affairs facilities. It does not include entries that were removed or entered in error. Problem Status Onset Date Problem Type Date of Resolution Comments Source Allergic rhinitis Active Condition [place] [facility] Bilateral tinnitus Active Condition [place] [facility] BPH - benign prostatic hyperplasia Active Condition [place] [facility] Cardiac pacemaker in situ Active Condition [place] [facility] Cardiomyopathy Active Condition [place] [facility] Carotid artery narrowing Active Condition Mar 07, 2021 Entered By: TATO BARRAZA Comment: 50-60% bilaterally [place] [facility] Cerebrovascular accident Active Condition Mar 07, 2021 Entered By: TATO BARRAZA Comment: right hemiparesis (COVID) 12/2020 [place] [facility] Chronic congestive heart failure Active Condition Apr 26, 2024 Entered By: TATO BARRAZA Comment: combined [place] [facility] Chronic kidney disease stage 4 Active Condition Apr 26, 2024 Entered By: TATO BARRAZA Comment: hemodialysis T-Th-Sat [place] [facility] CLL - Chronic lymphocytic leukemia (SNOMED CT 71044180) [facility] Coronary artery disease (SNOMED CT 30388999) Active Condition [facility] Diabetic nephropathy Active Condition [facility] Diabetic polyneuropathy Active Condition [place] [facility] Exposure to potentially hazardous substance Active Condition [facility] - Gastro-esophageal reflux disease Active Condition [place] [facility] Hearing loss Active Condition [place] [facility] HLD - Hyperlipidemia (SNOMED CT 98637976) Active Condition [facility] HTN - Hypertension (SNOMED CT 80183605) Active Condition [place] [facility] Multiple actinic keratoses involving face Active Condition [place] [facility] Pain of left elbow joint Active Condition [place] [facility] Renal mass Active Condition Jan 20 024 Entered By: TATO BARRAZA Comment: left; followed by pre sales network engineer [place] [facility] Sensorineural hearing loss of bilateral ears Active Condition [place] [facility] TIA Active Condition [place] [facility] Type 2 diabetes mellitus (SNOMED CT 36845190) Active Condition [place] [facility] Acute pancreatitis Inactive Condition 09/04/2020 [place] [facility] Arrhythmia * (ICD-9-CM 427.9) Inactive Condition 07/04/2016 [place] [facility] Family History of Diabetes Mellitus (ICD-9-CM V18.0) Inactive Condition 07/04/2016 [place] [facility] Hypertensive disorder (SNOMED CT 21135049) Inactive Condition 07/04/2016 [facility] Laboratory Examination Ordered as part of a Routine General Medical Examination Inactive Condition 07/04/2016 [facility] Routine General Medical Examination at a Health Care Facility * Inactive Condition 07/04/2016 [facility] Diagnosis: ICD-10-CM Z46.1 Encounter for fitting and adjustment of hearing aid Active Diagnosis [place] [facility] Diagnosis: ICD-10-CM 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 diabetes mellitus with unspecified complications Active Diagnosis [facility] Diagnosis: ICD-10-CM R09.81 Nasal congestion Active Diagnosis [facility] Diagnosis: ICD-10-CM I50.9 Heart failure, unspecified Active Diagnosis [facility] Diagnosis: ICD-10-CM E78.5 Hyperlipidemia, unspecified Active Diagnosis [facility] Diagnosis: ICD-10-CM R93.89 Abnormal findings on dx imaging of oth body structures Active Diagnosis [facility] Diagnosis: ICD-10-CM H90.3 Sensorineural hearing loss, bilateral Active Diagnosis [place] [facility] Diagnosis: ICD-10-CM Z13.9 Encounter for screening, unspecified Active Diagnosis [place] [facility] Diagnosis: ICD-10-CM Z13.5 Encounter for screening for eye and ear disorders Active Diagnosis [facility] Diagnosis: ICD-10-CM 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 Diagnosis [facility] Diagnosis: ICD-10-CM Z71.89 Other specified counseling Active Diagnosis [facility] Diagnosis: ICD-10-CM H90.5 Unspecified sensorineural hearing loss Active Diagnosis [facility] Diagnosis: ICD-10-CM R10.9 Unspecified abdominal pain Active Diagnosis [facility] Diagnosis: ICD-10-CM I73.89 Other specified peripheral vascular diseases Active Diagnosis [facility] Diagnosis: ICD-10-CM E87.5 Hyperkalemia Active Diagnosis [place] [facility] Medications Combined list of outpatient medications from Department of Defense and Veterans Affairs facilities.Medications provided include 1) outpatient medications from the last 15 months, and 2) patient-reported medications. Medication Details Route Status Patient Instructions Prescription Expires Prescription Number Last Dispense Date Ordering Provider Order Date Order Qty Source ASPIRIN 81MG TAB,EC TAKE ONE TABLET BY MOUTH ONCE A DAY ORAL ACTIVE TATO BARRAZA 2023 [facility] ATORVASTATI N CA 80MG TAB TAKE ONE TABLET BY MOUTH EVERY EVENING FOR HIGH CHOLESTE ROL TAKE ORALLY WITH EVENING MEAL ORAL ACTIVE 04/27/2025 [id number] RADHA PINK [address] [place] [address] [facility] CARVEDILOL 6.25MG TAB TAKE ONE-HALF TABLET BY MOUTH TWICE A DAY FOR HEART FAILURE TAKE WITH FOOD. ORAL ACTIVE 04/27/2025 [id number] 5 TATO BARRAZA 2023 90 [facility] CHOLECALCIF ZULEYKA 50MCG (2,000UNIT) TAB TAKE TWO TABLETS BY MOUTH ONCE A DAY FOR VITAMIN D SUPPLEME NTATION ORAL ACTIVE 04/27/2025 [id number] 5 TATO BARRAZA 2023 180 [facility] CHOLECALCIF ZULEYKA 50MCG (2,000UNIT) TAB TAKE TWO TABLETS BY MOUTH ONCE A DAY FOR VITAMIN D SUPPLEME NTATION ORAL DISCONT INUED 04/07/2024 [id number] 4 JENY GAMA 2022 180 [place] [facility] CLOPIDOGREL BISULFATE 75MG TAB TAKE ONE TABLET BY MOUTH ONCE A DAY TO THIN BLOOD ORAL 02/06/2024 [id number] [facility] TATO 2022 90 [facility] DICLOFENAC NA 1% GEL,TOP APPLY 2 GM TO AFFECTED AREA(S) ONCE A DAY FOR PAIN/INF LAMMATIO N; NOT MORE THAN 16 GRAMS DAILY TO ANY LOWER EXTREMIT Y JOINT. NOT MORE THAN 8 GRAMS DAILY TO ANY UPPER EXTREMIT Y JOINT. MAX 32GM/DAY OVER ALL JOINTS. (MEASURE DOSE WITH RULER ATTACHED INSIDE BOX) TOPICA L ACTIVE 04/27/2025 [id number] 5 [facility] TATO 2023 300 [facility] FINASTERIDE 5MG TAB TAKE ONE TABLET BY MOUTH ONCE A DAY SWALLOW WHOLE, DO NOT CRUSH, SPLIT, OR CHEW. ORAL ACTIVE 09/18/2025 [id number] 5 RADHA PINK 2024 90 [facility] FINASTERIDE 5MG TAB TAKE ONE TABLET BY MOUTH ONCE A DAY SWALLOW WHOLE, DO NOT CRUSH, SPLIT, OR CHEW. [facility] 08/20/2024 [id number] 4 CHRISTI TATO 2023 90 [facility] FISH OIL 1000MG (500MG DHA/EPA) CAP,ORAL TAKE 2 CAPSULES BY MOUTH TWICE A DAY WITH MEALS ORAL ACTIVE RADHA PINK W 2023 [facility] FLUTICASONE PROPIONATE 50MCG/SPRAY SOLN,NASAL, 16GM INSTILL 1 SPRAY IN NOSTRIL( S) ONCE A DAY FOR ALLERGIE S (MUST BE USED DIRECTED FOR MINIMUM OF 21 DAYS TO PROVIDE ADEQUATE BENEFITS ) NASAL ACTIVE 09/18/2025 [id number] 5 RADHA PINK 2024 3 [facility] FLUTICASONE PROPIONATE 50MCG/SPRAY SOLN,NASAL, 16GM INSTILL 1 SPRAY IN NOSTRIL( S) ONCE A DAY FOR ALLERGIE S (MUST BE USED DIRECTED FOR MINIMUM OF 21 DAYS TO PROVIDE ADEQUATE BENEFITS ) NASAL DISCONT INUED 08/20/2024 [id number] 4 ALF BARRAZAMY 2023 3 [facility] FOLIC ACID 1MG TAB TAKE ONE TABLET BY MOUTH ONCE A DAY FOR FOLIC ACID SUPPLEME NTATION ORAL ACTIVE 06/08/2025 [id number] RADHA PINK Liam 2023 100 [facility] FUROSEMIDE 40MG TAB TAKE ONE TABLET BY MOUTH EVERY MORNING FOR FLUID RETENTIO N (EDEMA) TAKE DAILY EXCEPT DIALYSIS DAYS ORAL DISCONT INUED (EDIT) 04/27/2025 [id number] RADHA PINK Liam 2023 90 [facility] FUROSEMIDE 80MG TAB TAKE ONE TABLET BY MOUTH TWICE A DAY FOR FLUID RETENTIO N (EDEMA) TAKE DAILY EXCEPT DIALYSIS DAYS ONLY ON NONDIALY SIS DAYS (FRIDAY, , FRIDAY, FRIDAY ORAL DISCONT INUED BY PROVIDE R 04/27/2025 [id number] 4 TATO BARRAZA 2023 180 [facility] INSULIN REG HUMAN 100 U/ML INJ NOVOLIN R INJECT 15 UNITS UNDER THE SKIN THREE TIMES A DAY BEFORE MEALS FOR DIABETES ADMINIST ER 30 MINUTES BEFORE FOOD DIRECTED . DISCARD 30 DAYS AFTER OPENING. SUBCUT ANEOUS ACTIVE 09/18/2025 [id number] 5 RADHA PINK Liam 2024 5 [facility] INSULIN REG HUMAN 100 U/ML INJ NOVOLIN R INJECT 10 UNITS UNDER THE SKIN EVERY MORNING BEFORE A MEAL FOR DIABETES ADMINIST ER 30 MINUTES BEFORE FOOD DIRECTED . DISCARD 30 DAYS AFTER OPENING. PER SLIDING SCALE ADMINIST ER 30 MINUTES BEFORE FOOD DIRECTED . DISCARD 30 DAYS AFTER OPENING. PER SLIDING SCALE SUBCUT ANEOUS 04/25/2024 [id number] 4 JOESPH RADHA Wheeler 2023 5 [facility] INSULIN,GLA RGINE,HUMAN 100 UNT/ML INJ INJECT 50 UNITS UNDER THE SKIN EVERY MORNING FOR DIABETES (AT SAME TIME EACH DAY) - (DISCARD ANY UNUSED PORTION 28 DAYS AFTER OPENING) ### SUBCUT ANEOUS ACTIVE 09/18/2025 [id number] 5 RADHA PINK Liam 2024 5 [facility] INSULIN,GLA RGINE,HUMAN 100 UNT/ML INJ INJECT 10 UNITS UNDER THE SKIN EVERY MORNING FOR DIABETES (AT SAME TIME EACH DAY) - (DISCARD ANY UNUSED PORTION 28 DAYS AFTER OPENING) SUBCUT ANEOUS DISCONT INUED (EDIT) 09/09/2025 [id number] 5 RADHA PINK 2024 5 [facility] INSULIN,GLA RGINE,HUMAN 100 UNT/ML INJ INJECT 40 UNITS UNDER THE SKIN EVERY MORNING FOR DIABETES (AT SAME TIME EACH DAY) - (DISCARD ANY UNUSED PORTION 28 DAYS AFTER OPENING) SUBCUT ANEOUS DISCONT INUED (EDIT) 04/27/2025 [id number] 4 TATO BARRAZA 2023 5 [facility] INSULIN,GLA RGINE-YFGN 100UNIT/ML INJ INJECT 35 UNITS UNDER THE SKIN EVERY MORNING FOR DIABETES (AT SAME TIME EACH DAY) - (DISCARD ANY UNUSED PORTION 28 DAYS AFTER OPENING) SUBCUT ANEOUS 04/24/2024 [id number] TATO BARRAZA 2022 6 [facility] ISOSORBIDE MONONITRATE 120MG TAB,SA TAKE ONE TABLET BY MOUTH ONCE A DAY TAKE ON EMPTY STOMACH. SWALLOW WHOLE. DO NOT CRUSH OR CHEW. ORAL DISCONT INUED (EDIT) 09/25/2024 [id number] 4 RAQUEL MARTINEZ 2023 90 [place] [facility] ISOSORBIDE MONONITRATE 30MG TAB,SA TAKE ONE TABLET BY MOUTH ONCE A DAY FOR CHEST PAIN TAKE ON EMPTY STOMACH. SWALLOW WHOLE. DO NOT CRUSH OR CHEW. ORAL ACTIVE 04/27/2025 [id number] 5 CHRISTITATO 2023 90 [facility] ISOSORBIDE MONONITRATE 60MG TAB,SA TAKE ONE AND ONE-HALF TABLETS BY MOUTH ONCE A DAY TO PREVENT CHEST PAIN. TAKE ON EMPTY STOMACH. SWALLOW WHOLE. DO NOT CRUSH OR CHEW. ORAL DISCONT INUED 04/07/2024 [id number] JENY GAMA 2022 135 [place] [facility] LORATADINE 10MG TAB TAKE ONE TABLET BY MOUTH ONCE A DAY ON EMPTY STOMACH FOR ALLERGIE S ORAL DISCONT INUED 07/25/2024 [id number] 4 CHRISTI TATO [address] [place] [address] [facility] LORATADINE 10MG TAB TAKE ONE TABLET BY MOUTH ONCE A DAY ON EMPTY STOMACH FOR ALLERGIE S ORAL DISCONT INUED 05/25/2024 [id number] 4 CHRISTI, TATO [address] [place] [address] [facility] LORATADINE 10MG TAB TAKE ONE TABLET BY MOUTH ONCE A DAY ON EMPTY STOMACH FOR ALLERGIE S ORAL DISCONT INUED 02/06/2024 [id number] 4 CHRISTI, TATO [address] [place] [address] [facility] LORATADINE 10MG TAB TAKE ONE TABLET BY MOUTH ONCE A DAY ON EMPTY STOMACH FOR ALLERGIE S ORAL 12/08/2024 [id number] [facility] TATO [address] [place] [address] [facility] MAGNESIUM OXIDE 400MG TAB TAKE ONE TABLET BY MOUTH ONCE A DAY FOR DIETARY MAGNESIU M SUPPLEME NTATION ORAL 04/07/2024 [id number] JENY GAMA 2022 120 [place] [facility] METOPROLOL TARTRATE 25MG TAB TAKE ONE TABLET BY MOUTH TWICE A DAY TAKE WITH OR IMMEDIAT JACKI FOLLOWIN G FOOD. ORAL DISCONT INUED BY PROVIDE R 11/13/2024 [id number] 4 Sharon EL USSAPEDRO PABLO 2023 180 [place] [facility] NIFEDIPINE (EQV-CC) 60MG TAB,SA TAKE ONE TABLET BY MOUTH ONCE A DAY FOR HIGH BLOOD PRESSURE PREFERAB LE TO TAKE ON EMPTY STOMACH. SWALLOW WHOLE; DO NOT CRUSH OR CHEW. AVOIDGRA PEFRUIT JUICE. ORAL 08/20/2024 [id number] 4 CHRISTI, TATO [address] [place] [address] [facility] NITROGLYCER IN 0.4MG TAB,SUBLING UAL DISSOLVE ONE TABLET UNDER THE TONGUE ONE-TIME FOR CHEST PAIN NEEDED; IF NO IMPROVEM ENT AFTER FIRST DOSE CALL 9-1-1. MAY TAKE 2 ADDITION AL DOSES, 5 MINUTES APART SUBLIN GUAL ACTIVE 04/20/2025 [id number] 5 CHRISTI, TATO 2023 100 [facility] OLANZAPINE 10MG TAB TAKE ONE-HALF TABLET BY MOUTH AT BEDTIME NEEDED FOR ANXIETY ORAL ACTIVE 04/27/2025 [id number] 4 CHRISTI, TATO 2023 90 [facility] SEVELAMER CARBONATE 800MG TAB TAKE ONE TABLET BY MOUTH THREE TIMES A DAY WITH MEAL(S) TAKE WITH FOOD. ORAL ACTIVE 04/24/2025 [id number] 5 TREVER MCRAE 2023 90 [facility] SODIUM ZIRCONIUM CYCLOSILICA TE 10GM/PKT PWDR,RENST- ORAL MIX AND DRINK 10GM/PKT BY MOUTH EVERY OTHER DAY FOR 90 DAYS FOR HIGH POTASSIU M DISSOLVE IN WATER ORAL DISCONT INUED BY GLORIA R 06/30/2024 [id number] 4 Antonio JOHNSON 2023 30 [facility] TAMSULOSIN HCL 0.4MG CAP TAKE TWO CAPSULES BY MOUTH EVERY EVENING APPROXIM ATELY 30 MINUTES AFTER THE SAME MEAL EACH DAY (FOR PROSTATE ) ORAL ACTIVE 03/20/2025 [id number] 4 RADHA PINK 2023 180 [facility] TAMSULOSIN HCL 0.4MG CAP TAKE TWO CAPSULES BY MOUTH EVERY EVENING APPROXIM ATELY 30 MINUTES AFTER THE SAME MEAL EACH DAY (FOR PROSTATE ) ORAL DISCONT INUED 04/07/2024 [id number] JENY GAMA 2022 180 [facility] TORSEMIDE 100MG TAB TAKE ONE TABLET BY MOUTH DIRECTED ON NON-DIAL YSIS DAYS (FRIDAY, , FRIDAY, AND FRIDAY) ORAL ACTIVE 09/14/2025 [id number] 5 TREVER MCRAE 2024 52 [place] [facility] Allergies, Adverse Reactions, Alerts Combined list of allergies from Department of Defense and Veterans Affairs facilities. It does not include entries that were removed or entered in error. Substance Category Reaction Severity Reaction type Status Date Reported Comments Source ALLOPURINOL Propensity to adverse reactions to drug (finding) Eruption active 8 [facility] CONTRAST MEDIA Propensity to adverse reactions to drug (finding) Eruption active 3 [facility] FLOMAX Propensity to adverse reactions to drug (finding) Chill, Finding of vomiting, Diarrhea, Weakness present active 8 [facility] METFORMIN Propensity to adverse reactions to drug (finding) NAUSEA,VO MITING active 3 [facility] Immunizations Combined list of available immunizations from the Department of Defense and Veterans Affairs facilities. Immunization Series Date Given Administered By Site Reaction Lot Number CVX Code Drug Centrifugal Supervisor Status Comments Source PNEUMOCOCCAL POLYSACCHARID E PPV23 2020 33 complet [facility] ZOSTER RECOMBINANT 2 2020 187 complet [facility] ZOSTER RECOMBINANT 1 2020 187 complet [facility] PNEUMOCOCCAL CONJUGATE PCV 13 2020 133 complet [facility] TDAP 2020 115 complet [facility] COVID-19 (PFIZER), MRNA, LNP-S, PF, 30 MCG/0.3 ML DOSE 2 2020 208 complet ed [facility] COVID-19 (uShip), MRNA, LNP-S, PF, 30 MCG/0.3 ML DOSE 1 2020 208 complet ed [facility] COVID-19 (uShip), MRNA, LNP-S, PF, 30 MCG/0.3 ML DOSE 1 2020 208 complet ed HISTORICA L INFORMATI ON - FROM OTHER REGISTRY, [facility] PNEUMOCOCCAL CONJUGATE PCV 13 1 2015 133 complet ed HISTORICA L INFORMATI ON - FROM OTHER [facility], [facility] INFLUENZA, UNSPECIFIED FORMULATION 2013 88 complet ed [facility] INFLUENZA, UNSPECIFIED FORMULATION [address] [facility] TD(ADULT) UNSPECIFIED FORMULATION 2004 139 complet ed [facility] INFLUENZA (HISTORICAL) 2003 88 complet ed [facility] INFLUENZA, UNSPECIFIED FORMULATION 2002 88 complet ed [facility] Results Combined list of recent chemistry, hematology and other laboratory results from Department of Defense and Veterans Affairs, ranging from 15 months to all on record, depending upon the facility. Order Name Results Value Reference Range Date Interpretation Specimen Comments Source HGA1C HEMOGLOBIN A1C/HEMOGLO BIN.TOTAL IN BLOOD 7.4 4.0 - 6.0 12/01 H Specimen Type: BLOOD No comment entered. Ordering Provider: TATO BARRAZA Report Released Date/Time : Dec 09, 2023 10:52 AM Reporting Lab: [place] [facility] [address] [place] [address] Performin g Lab: [place] [facility] [address] [place] [address] [facility] CHOLESTERO L PANEL (PB) CHOLESTEROL [MASS/VOLUM E] IN SERUM OR PLASMA 84 mg/dL 0 - 200 12/01 Specimen Type: PLASMA No comment entered. Ordering Provider: TATO BARRAZA Report Released Date/Time : Dec 09, 2023 10:52 AM Reporting Lab: [place] [facility] [address] [place] [address] Performin g Lab: [place] [facility] [address] [place] [address] [facility] CHOLESTERO L PANEL (PB) TRIGLYCERID E [MASS/VOLUM E] IN SERUM OR PLASMA 103 mg/dL 0 - 150 12/01 Specimen Type: PLASMA No comment entered. Ordering Provider: TATO BARRAZA Report Released Date/Time : Dec 09, 2023 10:52 AM Reporting Lab: [place] [facility] [address] [place] [address] Performin g Lab: [place] [facility] [address] [place] [address] [facility] CHOLESTERO L PANEL (PB) CHOLESTEROL IN LDL [MASS/VOLUM E] IN SERUM OR PLASMA BY CALCULATION 27.9 mg/dL 12/01 Specimen Type: PLASMA No comment entered. Ordering Provider: TATO BARRAZA Report Released Date/Time : Dec 09, 2023 10:52 AM Reporting Lab: [place] [facility] [address] [place] [address] Performin g Lab: [place] [facility] [address] [place] [address] [facility] CHOLESTERO L PANEL (PB) CHOLESTEROL IN HDL [MASS/VOLUM E] IN SERUM OR PLASMA 35.5 mg/dL 40 12/01 L Specimen Type: PLASMA No comment entered. Ordering Provider: TATO BARRAZA Report Released Date/Time : Dec 09, 2023 10:52 AM Reporting Lab: [place] [facility] [address] [place] [address] Performin g Lab: [place] [facility] [address] [place] [address] [facility] CHOLESTERO L PANEL (PB) CHOLESTEROL IN HDL/CHOLEST ZULEYKA.TOTAL [MASS RATIO] IN SERUM OR PLASMA 42.3 25 12/01 Specimen Type: PLASMA No comment entered. Ordering Provider: TATO BARRAZA Report Released Date/Time : Dec 09, 2023 10:52 AM Reporting Lab: [place] [facility] [address] [place] [address] Performin g Lab: [place] [facility] [address] [place] [address] [facility] TSH (MA-PB) THYROTROPIN [UNITS/VOLU ME] IN SERUM OR PLASMA 4.243 u[IU]/mL 0.47 - 5 12/01 Specimen Type: SERUM No comment entered. Ordering Provider: TATO BARRAZA Report Released Date/Time : Dec 09, 2023 10:52 AM Reporting Lab: [place] [facility] [address] [place] [address] Performin g Lab: [place] [facility] [address] [place] [address] [facility] COMPREHENS ERNST METABOLIC PANEL CREATININE [MASS/VOLUM E] IN SERUM OR PLASMA 3.11 mg/dL 0.7 - 1.3 12/01 H Specimen Type: PLASMA No comment entered. Ordering Provider: TATO BARRAZA Report Released Date/Time : Dec 09, 2023 10:52 AM Reporting Lab: [place] [facility] [address] [place] [address] Performin g Lab: [place] [facility] [address] [place] [address] [facility] COMPREHENS ERNST METABOLIC PANEL UREA NITROGEN [MASS/VOLUM E] IN SERUM OR PLASMA 24 mg/dL 9 - 25 12/01 Specimen Type: PLASMA No comment entered. Ordering Provider: TATO BARRAZA Report Released Date/Time : Dec 09, 2023 10:52 AM Reporting Lab: [place] [facility] [address] [place] [address] Performin g Lab: [place] [facility] [address] [place] [address] [facility] COMPREHENS ERNST METABOLIC PANEL GLUCOSE [MASS/VOLUM E] IN SERUM OR PLASMA 212 mg/dL 72 - 99 12/01 H Specimen Type: PLASMA No comment entered. Ordering Provider: TATO BARRAZA Report Released Date/Time : Dec 09, 2023 10:52 AM Reporting Lab: [place] [facility] [address] [place] [address] Performin g Lab: [place] [facility] [address] [place] [address] [facility] COMPREHENS ERNST METABOLIC PANEL SODIUM [MOLES/VOLU ME] IN SERUM OR PLASMA 137 meq/L 136 - 145 12/01 Specimen Type: PLASMA No comment entered. Ordering Provider: TATO BARRAZA Report Released Date/Time : Dec 09, 2023 10:52 AM Reporting Lab: [place] [facility] [address] [place] [address] Performin g Lab: [place] [facility] [address] [place] [address] [facility] COMPREHENS ERNST METABOLIC PANEL POTASSIUM [MOLES/VOLU ME] IN SERUM OR PLASMA 4.6 meq/L 3.5 - 5 12/01 Specimen Type: PLASMA No comment entered. Ordering Provider: TATO BARRAZA Report Released Date/Time : Dec 09, 2023 10:52 AM Reporting Lab: [place] [facility] [address] [place] [address] Performin g Lab: [place] [facility] [address] [place] [address] [facility] COMPREHENS ERNST METABOLIC PANEL CHLORIDE [MOLES/VOLU ME] IN SERUM OR PLASMA 100 meq/L 98 - 107 12/01 Specimen Type: PLASMA No comment entered. Ordering Provider: TATO BARRAZA Report Released Date/Time : Dec 09, 2023 10:52 AM Reporting Lab: [place] [facility] [address] [place] [address] Performin g Lab: [place] [facility] [address] [place] [address] [facility] COMPREHENS ERNST METABOLIC PANEL CARBON DIOXIDE, TOTAL [MOLES/VOLU ME] IN SERUM OR PLASMA 27 meq/L 22 - 31 12/01 Specimen Type: PLASMA No comment entered. Ordering Provider: TATO BARRAZA Report Released Date/Time : Dec 09, 2023 10:52 AM Reporting Lab: [place] [facility] [address] [place] [address] Performin g Lab: [place] [facility] [address] [place] [address] [facility] COMPREHENS ERNST METABOLIC PANEL CALCIUM [MASS/VOLUM E] IN SERUM OR PLASMA 8.9 mg/dL 8.4 - 10.4 12/01 Specimen Type: PLASMA No comment entered. Ordering Provider: TATO BARRAZA Report Released Date/Time : Dec 09, 2023 10:52 AM Reporting Lab: [place] [facility] [address] [place] [address] 8 Performin g Lab: [place] [facility] [address] [place] [address] 8 [facility] COMPREHENS ERNST METABOLIC PANEL PROTEIN [MASS/VOLUM E] IN SERUM OR PLASMA 6.1 g/dL 6 - 8.6 12/01 Specimen Type: PLASMA No comment entered. Ordering Provider: TATO BARRAZA Report Released Date/Time : Dec 09, 2023 10:52 AM Reporting Lab: [place] [facility] [address] [place] [address] 8 Performin g Lab: [place] [facility] [address] [place] [address] 8 [facility] COMPREHENS ERNST METABOLIC PANEL ALBUMIN [MASS/VOLUM E] IN SERUM OR PLASMA 4.1 g/dL 3.4 - 5 12/01 Specimen Type: PLASMA No comment entered. Ordering Provider: TATO BARRAZA Report Released Date/Time : Dec 09, 2023 10:52 AM Reporting Lab: [place] [facility] [address] [place] [address] 8 Performin g Lab: [place] [facility] [address] [place] [address] 8 [facility] COMPREHENS ERNST METABOLIC PANEL BILIRUBIN.T OTAL [MASS/VOLUM E] IN SERUM OR PLASMA 1.2 mg/dL 0.2 - 1.2 12/01 Specimen Type: PLASMA No comment entered. Ordering Provider: TATO BARRAZA Report Released Date/Time : Dec 09, 2023 10:52 AM Reporting Lab: [place] [facility] [address] [place] [address] 8 Performin g Lab: [place] [facility] [address] [place] [address] 8 [facility] COMPREHENS ERNST METABOLIC PANEL ALKALINE PHOSPHATASE [ENZYMATIC ACTIVITY/VO LUME] IN SERUM OR PLASMA 105 U/L 40 - 150 12/01 Specimen Type: PLASMA No comment entered. Ordering Provider: TATO BARRAZA Report Released Date/Time : Dec 09, 2023 10:52 AM Reporting Lab: [place] [facility] [address] [place] [address] 8 Performin g Lab: [place] [facility] [address] [place] [address] 8 [facility] COMPREHENS ERNST METABOLIC PANEL ASPARTATE AMINOTRANSF ERASE [ENZYMATIC ACTIVITY/VO LUME] IN SERUM OR PLASMA 10 U/L 5 - 34 12/01 Specimen Type: PLASMA No comment entered. Ordering Provider: TATO BARRAZA Report Released Date/Time : Dec 09, 2023 10:52 AM Reporting Lab: [place] [facility] [address] [place] [address] 8 Performin g Lab: [place] [facility] [address] [place] [address] 8 [facility] COMPREHENS ERNST METABOLIC PANEL ALANINE AMINOTRANSF ERASE [ENZYMATIC ACTIVITY/VO LUME] IN SERUM OR PLASMA <7U/L 8 - 40 12/01 L Specimen Type: PLASMA No comment entered. Ordering Provider: TATO BARRAZA Report Released Date/Time : Dec 09, 2023 10:52 AM Reporting Lab: [place] [facility] [address] [place] [address] 8 Performin g Lab: [place] [facility] [address] [place] [address] 8 [facility] COMPREHENS ERNST METABOLIC PANEL GLOMERULAR FILTRATION RATE/1.73 SQ M.PREDICTED [VOLUME RATE/AREA] IN SERUM, PLASMA OR BLOOD BY CREATININE- BASED FORMULA (CKD-EPI 2020) 19 12/01 Specimen Type: PLASMA No comment entered. Ordering Provider: TATO BARRAZA Report Released Date/Time : Dec 09, 2023 10:52 AM Reporting Lab: [place] [facility] [address] [place] [address] 8 Performin g Lab: [place] [facility] [address] [place] [address] 8 [facility] URINE ALBUMIN PROFILE-ih (PB) ALBUMIN [MASS/VOLUM E] IN URINE 417.30 mg/L 12/01 Specimen Type: URINE No comment entered. Ordering Provider: TATO BARRAZA Report Released Date/Time : Dec 09, 2023 10:52 AM Reporting Lab: [place] [facility] [address] [place] [address] 8 Performin g Lab: [place] [facility] [address] [place] [address] 8 [facility] URINE ALBUMIN PROFILE-ih (PB) ALBUMIN/CRE ATININE [MASS RATIO] IN URINE 346.62 mg/g 0 - 30 12/01 H Specimen Type: URINE No comment entered. Ordering Provider: TATO BARRAZA Report Released Date/Time : Dec 09, 2023 10:52 AM Reporting Lab: [place] [facility] [address] [place] [address] 8 Performin g Lab: [place] [facility] [address] [place] [address] 8 [facility] URINE ALBUMIN PROFILE-ih (PB) CREATININE [MASS/VOLUM E] IN URINE 120.39 mg/dL 12/01 Specimen Type: URINE No comment entered. Ordering Provider: TATO BARRAZA Report Released Date/Time : Dec 09, 2023 10:52 AM Reporting Lab: [place] [facility] [address] [place] [address] 8 Performin g Lab: [place] [facility] [address] [place] [address] 8 [facility] CBC LEUKOCYTES [#/VOLUME] IN BLOOD BY AUTOMATED COUNT 59.9 10*3/uL 3.6 - 11.2 12/01 H Specimen Type: BLOOD No comment entered. Ordering Provider: TATO BARRAZA Report Released Date/Time : Dec 09, 2023 10:52 AM Reporting Lab: [place] [facility] [address] [place] [address] 8 Performin g Lab: [place] [facility] [address] [place] [address] 8 [facility] CBC ERYTHROCYTE S [#/VOLUME] IN BLOOD BY AUTOMATED COUNT 3.15 10*6/uL 4.10 - 5.70 12/01 L Specimen Type: BLOOD No comment entered. Ordering Provider: TATO BARRAZA Report Released Date/Time : Dec 09, 2023 10:52 AM Reporting Lab: [place] [facility] [address] [place] [address] 8 Performin g Lab: [place] [facility] [address] [place] [address] 8 [facility] CBC HEMOGLOBIN [MASS/VOLUM E] IN BLOOD 9.6 g/dL 13.1 - 16.8 12/01 L Specimen Type: BLOOD No comment entered. Ordering Provider: TATO BARRAZA Report Released Date/Time : Dec 09, 2023 10:52 AM Reporting Lab: [place] [facility] [address] [place] [address] 8 Performin g Lab: [place] [facility] [address] [place] [address] 8 [facility] CBC HEMATOCRIT [VOLUME FRACTION] OF BLOOD 31.9 38.2 - 48.4 12/01 L Specimen Type: BLOOD No comment entered. Ordering Provider: TATO BARRAZA Report Released Date/Time : Dec 09, 2023 10:52 AM Reporting Lab: [place] [facility] [address] [place] [address] 8 Performin g Lab: [place] [facility] [address] [place] [address] 8 [facility] CBC MCV [ENTITIC VOLUME] BY AUTOMATED COUNT 101.3 fL 80.0 - 100.0 12/01 H Specimen Type: BLOOD No comment entered. Ordering Provider: TATO BARRAZA Report Released Date/Time : Dec 09, 2023 10:52 AM Reporting Lab: [place] [facility] [address] [place] [address] 8 Performin g Lab: [place] [facility] [address] [place] [address] 8 [facility] CBC MCH [ENTITIC MASS] BY AUTOMATED COUNT 30.5 pg 27.0 - 34.0 12/01 Specimen Type: BLOOD No comment entered. Ordering Provider: TATO BARRAZA Report Released Date/Time : Dec 09, 2023 10:52 AM Reporting Lab: [place] [facility] [address] [place] [address] 8 Performin g Lab: [place] [facility] [address] [place] [address] 8 [facility] CBC MCHC [MASS/VOLUM E] BY AUTOMATED COUNT 30.1 g/dL 33.0 - 36.0 12/01 L Specimen Type: BLOOD No comment entered. Ordering Provider: TATO BARRAZA Report Released Date/Time : Dec 09, 2023 10:52 AM Reporting Lab: [place] [facility] [address] [place] [address] 8 Performin g Lab: [place] [facility] [address] [place] [address] 8 [facility] CBC PLATELETS [#/VOLUME] IN BLOOD BY AUTOMATED COUNT 100 10*3/uL 150 - 400 12/01 L Specimen Type: BLOOD No comment entered. Ordering Provider: TATO BARRAZA Report Released Date/Time : Dec 09, 2023 10:52 AM Reporting Lab: [place] [facility] [address] [place] [address] 8 Performin g Lab: [place] [facility] [address] [place] [address] 8 [facility] CBC PLATELET MEAN VOLUME [ENTITIC VOLUME] IN BLOOD BY AUTOMATED COUNT 9.2 fL 7.5 - 11.2 12/01 Specimen Type: BLOOD No comment entered. Ordering Provider: TATO BARRAZA Report Released Date/Time : Dec 09, 2023 10:52 AM Reporting Lab: [place] [facility] [address] [place] [address] 8 Performin g Lab: [place] [facility] [address] [place] [address] 8 [facility] CBC SEGMENTED NEUTROPHILS /100 LEUKOCYTES IN BLOOD BY MANUAL COUNT 5 12/01 Specimen Type: BLOOD No comment entered. Ordering Provider: TATO BARRAZA Report Released Date/Time : Dec 09, 2023 10:52 AM Reporting Lab: [place] [facility] [address] [place] [address] 8 Performin g Lab: [place] [facility] [address] [place] [address] 8 [facility] CBC MONOCYTES/1 00 LEUKOCYTES IN BLOOD BY AUTOMATED COUNT 1 12/01 Specimen Type: BLOOD No comment entered. Ordering Provider: TATO BARRAZA Report Released Date/Time : Dec 09, 2023 10:52 AM Reporting Lab: [place] [facility] [address] [place] [address] 8 Performin g Lab: [place] [facility] [address] [place] [address] 8 [facility] CBC PLATELET ADEQUACY [PRESENCE] IN BLOOD BY LIGHT MICROSCOPY DECREASED 12/01 Specimen Type: BLOOD No comment entered. Ordering Provider: TATO BARRAZA Report Released Date/Time : Dec 09, 2023 10:52 AM Reporting Lab: [place] [facility] [address] [place] [address] 8 Performin g Lab: [place] [facility] [address] [place] [address] 8 [facility] CBC ANISOCYTOSI S [PRESENCE] IN BLOOD BY LIGHT MICROSCOPY 1+ 12/01 Specimen Type: BLOOD No comment entered. Ordering Provider: TATO BARRAZA Report Released Date/Time : Dec 09, 2023 10:52 AM Reporting Lab: [place] [facility] [address] [place] [address] 8 Performin g Lab: [place] [facility] [address] [place] [address] 8 [facility] CBC SMUDGE CELLS [PRESENCE] IN BLOOD BY LIGHT MICROSCOPY 1+ 12/01 Specimen Type: BLOOD No comment entered. Ordering Provider: TATO BARRAZA Report Released Date/Time : Dec 09, 2023 10:52 AM Reporting Lab: [place] [facility] [address] [place] [address] 8 Performin g Lab: [place] [facility] [address] [place] [address] 8 [facility] CBC ERYTHROCYTE DISTRIBUTIO N WIDTH [RATIO] BY AUTOMATED COUNT 18.4 11.8 - 15.1 12/01 H Specimen Type: BLOOD No comment entered. Ordering Provider: TATO BARRAZA Report Released Date/Time : Dec 09, 2023 10:52 AM Reporting Lab: [place] [facility] [address] [place] [address] 8 Performin g Lab: [place] [facility] [address] [place] [address] 8 [facility] CBC LYMPHOCYTES /100 LEUKOCYTES IN BLOOD BY MANUAL COUNT 70 12/01 Specimen Type: BLOOD No comment entered. Ordering Provider: TATO BARRAZA Report Released Date/Time : Dec 09, 2023 10:52 AM Reporting Lab: [place] [facility] [address] [place] [address] 8 Performin g Lab: [place] [facility] [address] [place] [address] 8 [facility] CBC LYMPHOCYTES /100 LEUKOCYTES IN BLOOD BY AUTOMATED COUNT 94.2 12/01 Specimen Type: BLOOD No comment entered. Ordering Provider: TATO BARRAZA Report Released Date/Time : Dec 09, 2023 10:52 AM Reporting Lab: [place] [facility] [address] [place] [address] 8 Performin g Lab: [place] [facility] [address] [place] [address] 8 [facility] CBC MONOCYTES/1 00 LEUKOCYTES IN BLOOD BY AUTOMATED COUNT 1.6 12/01 Specimen Type: BLOOD No comment entered. Ordering Provider: TATO BARRAZA Report Released Date/Time : Dec 09, 2023 10:52 AM Reporting Lab: [place] [facility] [address] [place] [address] 8 Performin g Lab: [place] [facility] [address] [place] [address] 8 [facility] CBC NEUTROPHILS /100 LEUKOCYTES IN BLOOD BY AUTOMATED COUNT 3.5 12/01 Specimen Type: BLOOD No comment entered. Ordering Provider: TATO BARRAZA Report Released Date/Time : Dec 09, 2023 10:52 AM Reporting Lab: [place] [facility] [address] [place] [address] 8 Performin g Lab: [place] [facility] [address] [place] [address] 8 [facility] CBC EOSINOPHILS /100 LEUKOCYTES IN BLOOD BY AUTOMATED COUNT 0.5 12/01 Specimen Type: BLOOD No comment entered. Ordering Provider: TATO BARRAZA Report Released Date/Time : Dec 09, 2023 10:52 AM Reporting Lab: [place] [facility] [address] [place] [address] 8 Performin g Lab: [place] [facility] [address] [place] [address] 8 [facility] CBC BASOPHILS/1 00 LEUKOCYTES IN BLOOD BY AUTOMATED COUNT 0.1 12/01 Specimen Type: BLOOD No comment entered. Ordering Provider: TATO BARRAZA Report Released Date/Time : Dec 09, 2023 10:52 AM Reporting Lab: [place] [facility] [address] [place] [address] 8 Performin g Lab: [place] [facility] [address] [place] [address] 8 [facility] CBC LYMPHOCYTES [#/VOLUME] IN BLOOD BY AUTOMATED COUNT 56.46 10*3/uL 0.77 - 4.50 12/01 H Specimen Type: BLOOD No comment entered. Ordering Provider: TATO BARRAZA Report Released Date/Time : Dec 09, 2023 10:52 AM Reporting Lab: [place] [facility] [address] [place] [address] 8 Performin g Lab: [place] [facility] [address] [place] [address] 8 [facility] CBC MONOCYTES [#/VOLUME] IN BLOOD BY AUTOMATED COUNT 0.97 10*3/uL 0.19 - 0.8 12/01 H Specimen Type: BLOOD No comment entered. Ordering Provider: TATO BARRAZA Report Released Date/Time : Dec 09, 2023 10:52 AM Reporting Lab: [place] [facility] [address] [place] [address] 8 Performin g Lab: [place] [facility] [address] [place] [address] 8 [facility] CBC NEUTROPHILS [#/VOLUME] IN BLOOD BY AUTOMATED COUNT 2.12 10*3/uL 2.10 - 8.00 12/01 Specimen Type: BLOOD No comment entered. Ordering Provider: TATO BARRAZA Report Released Date/Time : Dec 09, 2023 10:52 AM Reporting Lab: [place] [facility] [address] [place] [address] 8 Performin g Lab: [place] [facility] [address] [place] [address] 8 [facility] CBC EOSINOPHILS [#/VOLUME] IN BLOOD BY AUTOMATED COUNT 0.27 10*3/uL 0.00 - 0.60 12/01 Specimen Type: BLOOD No comment entered. Ordering Provider: TATO BARRAZA Report Released Date/Time : Dec 09, 2023 10:52 AM Reporting Lab: [place] [facility] [address] [place] [address] 8 Performin g Lab: [place] [facility] [address] [place] [address] 8 [facility] CBC BASOPHILS [#/VOLUME] IN BLOOD BY AUTOMATED COUNT 0.04 10*3/uL 0.00 - 0.20 12/01 Specimen Type: BLOOD No comment entered. Ordering Provider: TATO BARRAZA Report Released Date/Time : Dec 09, 2023 10:52 AM Reporting Lab: [place] [facility] [address] [place] [address] 8 Performin g Lab: [place] [facility] [address] [place] [address] 8 [facility] CBC VARIANT LYMPHOCYTES /100 LEUKOCYTES IN BLOOD BY MANUAL COUNT 24 12/01 Specimen Type: BLOOD No comment entered. Ordering Provider: TATO BARRAZA Report Released Date/Time : Dec 09, 2023 10:52 AM Reporting Lab: [place] [facility] [address] [place] [address] 8 Performin g Lab: [place] [facility] [address] [place] [address] 8 [facility] CBC PLATELETS RETICULATED /100 PLATELETS IN BLOOD BY AUTOMATED COUNT 1.8 1.0 - 7.0 12/01 Specimen Type: BLOOD No comment entered. Ordering Provider: TATO BARRAZA Report Released Date/Time : Dec 09, 2023 10:52 AM Reporting Lab: [place] [facility] [address] [place] [address] 8 Performin g Lab: [place] [facility] [address] [place] [address] 8 [facility] CBC IMMATURE GRANULOCYTE S/100 LEUKOCYTES IN BLOOD BY AUTOMATED COUNT 0.1 12/01 Specimen Type: BLOOD No comment entered. Ordering Provider: TATO BARRAZA Report Released Date/Time : Dec 09, 2023 10:52 AM Reporting Lab: [place] [facility] [address] [place] [address] 8 Performin g Lab: [place] [facility] [address] [place] [address] 8 [facility] CBC IMMATURE GRANULOCYTE S [#/VOLUME] IN BLOOD BY AUTOMATED COUNT 0.07 10*3/uL 0.00 - 0.05 12/01 H Specimen Type: BLOOD No comment entered. Ordering Provider: TATO BARRAZA Report Released Date/Time : Dec 09, 2023 10:52 AM Reporting Lab: [place] [facility] [address] [place] [address] 8 Performin g Lab: [place] [facility] [address] [place] [address] 8 [facility] CBC MANUAL DIFFERENTIA L COMMENT [INTERPRETA TION] IN BLOOD NARRATIVE NO 12/01 Specimen Type: BLOOD No comment entered. Ordering Provider: TATO BARRAZA Report Released Date/Time : Dec 09, 2023 10:52 AM Reporting Lab: [place] [facility] [address] [place] [address] 8 Performin g Lab: [place] [facility] [address] [place] [address] 8 [facility] CBC MANUAL DIFFERENTIA L PERFORMED [PRESENCE] IN BLOOD 0.00 10*3/uL 0.00 12/01 Specimen Type: BLOOD No comment entered. Ordering Provider: TATO BARRAZA Report Released Date/Time : Dec 09, 2023 10:52 AM Reporting Lab: [place] [facility] [address] [place] [address] 8 Performin g Lab: [place] [facility] [address] [place] [address] 8 [facility] CBC MONOCYTES [#/VOLUME] IN BLOOD BY MANUAL COUNT 0.60 10*3/uL 0.19 - 0.8 12/01 Specimen Type: BLOOD No comment entered. Ordering Provider: TATO BARRAZA Report Released Date/Time : Dec 09, 2023 10:52 AM Reporting Lab: [place] [facility] [address] [place] [address] 8 Performin g Lab: [place] [facility] [address] [place] [address] 8 [facility] CBC LYMPHOCYTES [#/VOLUME] IN BLOOD BY MANUAL COUNT 41.93 10*3/uL 0.77 - 4.50 12/01 H Specimen Type: BLOOD No comment entered. Ordering Provider: TATO BARRAZA Report Released Date/Time : Dec 09, 2023 10:52 AM Reporting Lab: [place] [facility] [address] [place] [address] 8 Performin g Lab: [place] [facility] [address] [place] [address] 8 [facility] CBC NEUTROPHILS [#/VOLUME] IN BLOOD BY MANUAL COUNT 3.00 10*3/uL 2.10 - 8.00 12/01 Specimen Type: BLOOD No comment entered. Ordering Provider: TATO BARRAZA Report Released Date/Time : Dec 09, 2023 10:52 AM Reporting Lab: [place] [facility] [address] [place] [address] 8 Performin g Lab: [place] [facility] [address] [place] [address] 8 [facility] FERRITIN FERRITIN [MASS/VOLUM E] IN SERUM OR PLASMA 228 ng/mL 22 - 275 09/13 Specimen Type: SERUM No comment entered. Ordering Provider: RADHA PINK Report Released Date/Time : Jun 07, 2024 01:24 PM Reporting Lab: [place] [facility] [address] [place] [address] 8 Performin g Lab: [place] [facility] [address] [place] [address] 8 [facility] FOLATE (PB) FOLATE [MASS/VOLUM E] IN SERUM OR PLASMA >20.0ng/m L 7 - 20 09/13 H Specimen Type: SERUM No comment entered. Ordering Provider: RADHA PINK Report Released Date/Time : Jun 07, 2024 01:24 PM Reporting Lab: [place] [facility] [address] [place] [address] 8 Performin g Lab: [place] [facility] [address] [place] [address] 8 [facility] DIRECT LDL (MA-PB) CHOLESTEROL IN LDL [MASS/VOLUM E] IN SERUM OR PLASMA BY DIRECT ASSAY 40.9 mg/dL 0 - 99.9 09/13 Specimen Type: PLASMA No comment entered. Ordering Provider: RADHA PINK Report Released Date/Time : Jun 07, 2024 01:24 PM Reporting Lab: [place] [facility] [address] [place] [address] Performin g Lab: [place] [facility] [address] [place] [address] [facility] B12 COBALAMIN (VITAMIN B12) [MASS/VOLUM E] IN SERUM OR PLASMA 394 pg/mL 213 - 816 09/13 Specimen Type: SERUM No comment entered. Ordering Provider: RADHA PINK Report Released Date/Time : Jun 07, 2024 01:24 PM Reporting Lab: [place] [facility] [address] [place] [address] Performin g Lab: [place] [facility] [address] [place] [address] [facility] Vital Signs Combined list of inpatient and outpatient Vital Signs from Department of Defense and Veterans Affairs, ranging from 12 months to all on record, depending upon the facility. Vital Sign Value Date Comments Source SYSTOLIC BLOOD PRESSURE 119 08/25/2024 11:23:00 [facility] DIASTOLIC BLOOD PRESSURE 66 08/25/2024 11:23:00 [place] [facility] PULSE OXIMETRY 93 08/25/2024 11:23:00 [facility] WEIGHT 226.9 08/25/2024 11:23:00 [place] [facility] BMI 32 kg/m2 08/25/2024 11:23:00 [place] [facility] HEIGHT 71.0 08/25/2024 11:23:00 [place] [facility] PULSE 84 08/25/2024 11:23:00 [place] [facility] RESPIRATION 18 08/25/2024 11:23:00 [place] [facility] SYSTOLIC BLOOD PRESSURE 129 04/26/2024 15:00:00 [place] [facility] DIASTOLIC BLOOD PRESSURE 65 04/26/2024 15:00:00 [place] [facility] PULSE OXIMETRY 95 04/26/2024 15:00:00 [facility] WEIGHT 231.4 04/26/2024 15:00:00 [place] [facility] BMI 32 kg/m2 04/26/2024 15:00:00 [place] [facility] PAIN 0 04/26/2024 15:00:00 [facility] TEMPERATURE 97.8 04/26/2024 15:00:00 [place] [facility] PULSE 68 04/26/2024 15:00:00 [facility] RESPIRATION 18 04/26/2024 15:00:00 [place] [facility] Encounters Combined list of: 1) Encounters from Department of [facility] facilities going backup to the last 18 months, not all [facility] inpatient encounters are included; 2) Encounters from the Department of [facility] facilities going backup to 280 months. 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 JANAYANGELLA WatsonNA R 07/01 [facility] [place] [facility] Outpatient Encounter [id number] TERESA MANRIQUE N 08/20 [place] [facility] [place] [facility] Outpatient Encounter [id number] [id number] 09/07 [place] [facility] [place] [facility] Outpatient Encounter [id number] [id number] 10/[address] [facility] OFFICE O/P EST MOD 30 MIN [id number] Diagnos is: ICD-10- CM R10.9 Unspeci fied abdomin al pain Walter BARRAZA 10/07 [facility] HC PRO PHONE CALL 5-10 MIN [id number] Diagnos is: ICD-10- CM R93.89 Abnorma l finding s on dx imaging of oth body structu res JANAYANGELLA ALFREDNA R 10/08 [facility] Outpatient Encounter [id number] 10/08 [facility] PHARM ADDL 15 MIN [id number] Diagnos is: ICD-10- CM 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 diabete s mellitu s with unspeci fied complic ations Nupur PINK W 10/09 [facility] OFF/OP EST MAY X REQ PHY/QHP [id number] [id number] Diagnos is: ICD-10- CM 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 Encounter [id number] [id number] 11/05 [facility] Outpatient Encounter [id number] [id number] 11/11 [place] [facility] Outpatient Encounter [id number] [id number] 11/12 [facility] Encounter [id number] [id number] 11/19 [facility] Outpatient Encounter [id number] [id number] PRAVEENA BREWER 11/23 [place] 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 Walter BARRAZA 12/08 [facility] FUNDUS PHOTOGRAPH Y W/I&R [id number] [id number] Diagnos is: ICD-10- CM Z13.5 Encount er for screeni ng for eye and ear disorde MAGDALENO Perez 12/08 [facility] MTMS BY PHARM ADDL 15 MIN [id number] [id number] Diagnos is: ICD-10- CM 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 diabete s mellitu s with unspeci fied complic atNupur Thurston W 12/08 [facility] [place] [facility] IMG RTA DETC/MNTR DS PHY/QHP [id number] [id number] Diagnos is: ICD-10- CM Z13.9 Encount er for screeni ng, unspeci fied RICO,MIGUEL LA S 12/08 [place] [facility] TELEHEALTH FACILITY FEE [id number] [id number] Diagnos is: ICD-10- CM H90.3 Sensori neural hearing loss, MILAD Saldivar 12/14 [facility] [place] [facility] HEARING AID REPAIR/MOD IFYING [id number] [id number] Diagnos is: ICD-10- CM H90.3 Sensori neural hearing loss, MILAD Saldivar 12/14 [place] [facility] Outpatient Encounter [id number] [id number] 12/21 [facility] Encounter [id number] 12/21 [facility] Outpatient Encounter [id number] [id number] 12/21 [facility] En[facility] [id number] [id number] JASON MUNSON A 12/22 [facility] Encounter [id number] [id number] 12/22 [facility] Outpatient Encounter [id number] [id number] 01/07 [facility] Outpatient Encounter [id number] [id number] 01/07 [facility] Outpatient Encounter [id number] [id number] 01/07 [facility] TELEHEALTH FACILITY FEE [id number] [id number] Diagnos is: ICD-10- CM Z46.1 Encount er for fitting and adjustm ent of hearing aid MILAD CHOUDHURY A 01/13 [facility] HEARING AID CHECK BOTH EARS [id number] [id number] Diagnos is: ICD-10- CM Z46.1 Encount er for fitting and adjustm ent of hearing aid MILAD CHOUDHURY A 01/13 [place] [facility] HC PRO PHONE CALL 5-10 MIN [id number] [id number] Diagnos is: ICD-10- CM R93.89 Abnorma l finding s on dx imaging of oth body structu res JANAYANGELLA Watson R 01/18 [facility] Outpatient Encounter [id number] [id number] FABIENNELOUISE DENNIS T 01/19 [facility] Outpatient Encounter [id number] [id number] 02/05 [facility] Outpatient Encounter [id number] [id number] 02/08 [facility] Outpatient Encounter [id number] [id number] 02/16 [facility] [place] [facility] Outpatient Encounter [id number] [id number] 02/16 [facility] Outpatient Encounter [id number] [id number] 02/17 [facility] Encounter [id number] [id number] 02/23 [facility] Outpatient Encounter [id number] [id number] 02/24 [facility] [place] [facility] Outpatient Encounter [id number] [id number] 02/24 [place] [facility] Outpatient Encounter [id number] [id number] 03/04 [facility] Outpatient Encounter [id number] 03/17 [facility] [place] [facility] Outpatient Encounter [id number] [id number] 03/[address] [facility] MTMS BY PHARM ADDL 15 MIN [id number] [id number] Diagnos is: ICD-10- CM E78.5 Hyperli pidemia , unspeci fied Nupur PINK W 03/19 [facility] Outpatient Encounter [id number] [id number] 03/23 [facility] Outpatient Encounter [id number] [id number] TREVER LIRIANO N 03/28 [facility] Outpatient Encounter [id number] [id number] 03/31 [facility] [place] [facility] Outpatient Encounter [id number] [id number] 03/31 [facility] MARK [facility]ON [facility] Outpatient Encounter [id number] [id number] GLORIA CONSTANTINO 04/06 [facility] Outpatient Encounter [id number] [id number] 04/08 [facility] Outpatient Encounter [id number] [id number] 04/08 [facility] [place] [facility] Outpatient Encounter [id number] [id number] 04/12 [place] [facility] [place] [facility] Outpatient Encounter [id number] [id number] 04/19 [place] [facility] Outpatient Encounter [id number] [id number] 04/23 [facility] MTMS BY PHARM ADDL 15 MIN [id number] Diagnos is: ICD-10- CM E78.5 Hyperli pidemia , unspeci fied Nupur PINK W 04/26 [facility] OFFICE O/P EST MOD 30 MIN [id number] [id number] Diagnos is: ICD-10- CM I50.9 Heart failure , unspeci fied Walter BARRAZA 04/26 [facility] [place] [facility] Outpatient Encounter [id number] [id number] 05/26 [place] [facility] Outpatient Encounter [id number] [id number] 06/04 [facility] MTMS BY PHARM ADDL 15 MIN [id number] Diagnos is: ICD-10- CM 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 diabete s mellitu s with unspeci fied complic ations Nupur PINK W 06/07 [facility] Outpatient Encounter [id number] [id number] 06/07 [facility] Outpatient Encounter [id number] [id number] 06/08 [facility] N [facility] Outpatient Encounter [id number] [id number] BARRETT RUSH 07/05 [facility] N [facility] Outpatient Encounter [id number] [id number] 07/07 [facility] PH1 ASSMT&MGMT NQHP 5-10 [id number] [id number] Diagnos is: ICD-10- CM R09.81 Nasal congest ANGELLA Perez R 07/13 [facility] [place] [facility] Outpatient Encounter [id number] [id number] 08/11 [place] [facility] Outpatient Encounter [id number] 08/12 [facility] OFFICE O/P EST MOD 30 MIN [id number] Diagnos is: ICD-10- CM 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 diabete s mellitu s with unspeci fied complic ations Walter BARRAZA 08/25 [facility] Outpatient Encounter [id number] [id number] 08/25 [facility] Outpatient Encounter [id number] [id number] 09/08 [facility] Outpatient Encounter [id number] [id number] 09/08 [facility] Encounter [id number] [id number] 09/13 [facility] Outpatient Encounter [id number] [id number] 09/16 [facility] MTMS BY PHARM ADDL 15 MIN [id number] [id number] Diagnos is: ICD-10- CM 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 Outpatient Encounter [id number] [id number] 09/28 [facility] Out[facility] Encounter [id number] [id number] 1 10/06 [facility] Outpatient Encounter [id number] [id number] 10/13 [facility] Outpatient Encounter [id number] [id number] 10/22 [facility] Outpatient Encounter [id number] [id number] 10/26 [facility] TELE[facility] FAC[facility] FEE [id number] [id number] Diagnos is: ICD-10- CM Z46.1 Encount er for fitting and adjustm ent of hearing aid MILAD CHOUDHURY A 10/27 [facility] HEARING AID REPAIR/MOD IFYING [id number] [id number] Diagnos is: ICD-10- CM Z46.1 Encount er for fitting and adjustm ent of hearing aid MILAD CHOUDHURY A 10/27 [place] [facility] Outpatient Encounter [id number] [id number] 11/04 [facility] Outpatient Encounter [id number] [id number] 11/12 [facility] Outpatient Encounter [id number] 11/23 [facility] [place] [facility] Outpatient Encounter [id number] [id number] 12/04 [facility] Outpatient Encounter [id number] [id number] LUISITO HARDEN 12/06 [facility] [place] [facility] Outpatient Encounter [id number] GLORIA CONSTANTINO 12/06 DEANNA ANNA FREEMAN [facility] Outpatient Encounter [id number] 12/08 [facility] [place] [facility] Outpatient Encounter [id number] 12/15 [place] [facility] Social History Combined list of available smoking, tobacco, and other social history from [facility] of Defense and [facility] Affairs facilities. Social History Type Response Date Comment Sour e Tobacco smoking status NHIS VA-TOBACCO USE FORMER CIGARETTES 08/25/2024 [facility] History of tobacco use VA-TOBACCO NEVER USED OTHER TYPE 08/25/2024 [facility] History of tobacco use CO-TOBACCO QUIT 1 5 YRS OR MORE 06/13/2023 [facility] History of tobacco use VA-TOBACCO FORMER USER 05/22/2022 [facility] History of tobacco use VA-TOBACCO NEVER USED 05/24/2021 [facility] History of tobacco use VA-TOBACCO QUIT 1 5 YRS OR MORE 02/07/2020 [facility] History of tobacco use VA-TOBACCO FORMER USER 08/04/2018 [facility] History of tobacco use QUIT TOBACCO >7 Y EARS AGO 06/30/2017 [facility] History of tobacco use QUIT TOBACCO >7 Y EARS AGO 09/17/2012 [facility] History of tobacco use CURRENT NON-TOBAC CO USER-HX OF USE 11/30/2004 [facility] History of tobacco use CURRENT NON-TOBAC CO USER-HX OF USE 07/03/2004 [facility] History of tobacco use CURRENT NON-TOBAC CO USER-HX OF USE 09/01/2003 [facility] History of tobacco use CURRENT NON-TOBAC CO USER-HX OF USE 09/16/2002 [facility] Plan of Care List of future care activities from Department of [facility] facilities. Additional future care activities may be listed in the Assessment and Plan section. Date/Time Care Activity Care Activity Detail Facili ty 12/22/2024 AMBULATORY - MEDICINE AMBULATORY - MEDICI NE [facility]
--- OUTSIDE RECORDS SUMMARY | 2024-12-17 13:45 | XMS_ITS | Encounter Summary ---
Author Organization [facility] Address [address] [place] [address] Care Team Providers Care Stave Cutting Supervisor Name Role Phone Paula Sandoval MD Primary Care Provider + [phone] Reason for Visit * Reason Comments Post-op Visit * Consult for Advice and Opinion (Routine) - Authorized Specialty Diagnoses / Procedures Referred By Contac t Referred To Contact Vascular Surgery Diagnoses End stage renal disease (CMS/HCC) Paula Sandoval MD [address] [place] [address] Phone: tel: fax: [facility] Vascular Surgery [address] [address] Phone: tel: fax: Referral ID Status Reason Start Date Expiration Date V isits Requested Visits Authorized [id number] Authorized 11/04/2024 05/11/2025 [id number] Encounter Details Date Type Department Care Team (Latest Contact Info) Description 12/17/2024 1:45 PM CDT Office Visit [facility] Vascular Surgery [place] [address] [place] [address] Klarissa Flowers MD [address] [facility] [address] [place] [phone] ESRD (end stage renal disease) ([facility]) (Primary Dx); S/P arteriovenous (AV) graft placement Social History Tobacco Use Types Packs/Day Years [...] Sign Reading Time Taken Comments Blood Pressure 140/62 12/17/2024 2:04 PM CDT Pulse 63 12/17/2024 2:04 PM CDT Temperature - - Respiratory Rate - - Oxygen Saturation 92% 12/17/2024 2:04 PM CDT Inhaled Oxygen Concentration - - Weight 106.8 kg (235 lb 6.4 oz) 12/17/2024 2:04 PM CDT Height 180.3 cm (5' 11 ) 12/17/2024 2:04 PM CDT Body Mass Index 32.83 12/17/2024 2:04 PM CDT documented in this encounter Progress Notes * Klarissa Flowers MD - 12/17/2024 4:07 PM CDT 12/17/2024 Vascular Surgery Postop Visit Subjective: Valente Renae is a 79 y.o. male presents to the clinic S/P right arm AVG placement. Patient is having some numbness in the hand since surgery. He has been in and out the hospital since then as well, most recently for melena. Found to have gastric ulcers Objective: Vitals: 12/17/24 1404 BP: (!) 140/62 BP Location: Left arm Patient Position (BP): Sitting BP Cuff Size: Adult Pulse: 63 SpO2: 92% Weight: 106.8 kg (235 lb 6.4 oz) Height: 5' 11 (1.803 m) Current Outpatient Medications Medication Sig Dispense Refill pantoprazole (PROTONIX) 40 mg Tablet, Delayed Release (E.C.) Take 1 Tablet (40 mg) by mouth 2 timesdaily. 60 Tablet 0 oxyCODONE-acetaminophen (PERCOCET) 5-325 mg tablet Take 1 [...] for Constipation. fluticasone propionate (FLONASE) 50 mcg/spray [place], Suspension nasal inhaler Administer 1 [place] ineach nostril 2 times daily. acetaminophen (TYLENOL) [...] capsule Take 0.4 mg by mouth daily. No current facility-administered medications for this visit. PHYSICAL EXAM: Right arm - incisions look good, good thrill in graft, no signs of infection Right radial pulse is normal, hand is warm Assessment: S/p graft placement Plan: Encouraged hand exercises Hand numbness present but there is good perfusion to the hand so no significant steal Ok to start using the graft next week Klarissa Flowers MD [facility] Vascular Surgery 12/17/2024 4:07 PM documented in this encounter Plan of Treatment Upcoming Encounters Date Type Department Care Team (Late st Contact Info) Description 12/23/2024 12:00 PM CDT Office Visit [facility] Cancer and Hematology [place] [address] [place] [address] Umm Dotson, [address] [place] [phone] 01/21/2025 11:00 AM CDT Office Visit [facility] [address] [place] [address] Lyndsey Dorsey, MARCELLO [address] [facility] [address] [place] [address] documented as of this encounter Visit Diagnoses Diagnosis ESRD (end stage renal disease) ([facility])- Primary End stage renal disease S/P arteriovenous (AV) graft placement documented in this encounter Care Teams Stave Cutting Supervisor Relationship Specialty Start Date End Date Paula Sandoval MD [address] [place] [phone] PCP - General Family Practice 10/18/24 documented as of this encounter
--- OUTSIDE RECORDS SUMMARY | 2024-12-18 16:18 | XMS_ITS | Encounter Summary ---
Author Organization [facility] Address [address] [place] [address] Care Team Providers Care Beef Selector Name Role Phone Paula Sandoval MD Primary Care Provider + [phone] Reason for Visit * Reason Onset Date Comments 10/21/24 Willian Appt Needs Rescheduled 025 Encounter Details Date Type Department Care Team (Late st Contact Info) Description 09/23/2024 Telephone [facility] [address] [facility] [address] [place] [address] Lyndsey Dorsey, MARCELLO [address] [facility] [address], [address] [place] [address] 10/21/24 Willian Appt Needs Rescheduled Social History Tobacco Use Types Packs/Day Years Used Date Smoking Tobacco: Never Smokeless Tobacco: Never Alcohol Use Standard Drinks/Week Comments Not Currently 0 (1 standard drink = 0.6 oz pur e alcohol) holidays/ special occasions Feeling Safe Answer Date Recorded Are you in a relationship wi th someone who hurts you emotionally and/or physically? No 03/28/2024 Food Insecurity Answer Date Recorded Social/Environmental Concerns No concerns Transportation Needs Answer Date Record ed Social/Environmental Concerns No concerns Housing Stability Answer Date Recorded Social/Environmental Concerns No concerns Utility Needs Answer Date Recorded Social/Environmental Concerns No concerns Sex and Gender Information Value Date Recorded Sex Assigned at Not on file Legal Sex Male 12:42 PM CDT Gender Identity Not on file Sexual Orientation Not on file documented as of this encounter Miscellaneous Notes * Telephone Encounter - Susan Carpenter - 09/23/2024 4:23 PM CDT Provider: Willian Phone: joe - [phone] MESSAGE 10/21/24 Willian appointment - pt unable to keep this appt due to having dialysis , , and Friday. Please make appt on non dialysis day. Would like appt from 10AM - 3PM please. Thank you. Susan Carpenter, [facility] documented in this encounter Plan of Treatment Upcoming Encounters Date Type Department Care Team (Late st Contact Info) Description 12/23/2024 12:00 PM CDT Office Visit [facility] Cancer and Hematology [place] [address] [place] [phone] Umm Dotson, [address] [place] [address] 01/21/2025 11:00 AM CDT Office Visit [facility] Card[facility] [address] [place] [address] Lyndsey Dorsey, [employer] [address] [place] [address] documented as of this encounter Visit Diagnoses Not on filedocumented in this encounter Care Teams Beef Selector Relationship Specialty Start Date End Date Paula Sandoval MD [address] [place] [address] PCP - General Family Practice 10/18/24 documented as of this encounter
--- OUTSIDE RECORDS SUMMARY | 2024-12-18 16:18 | XMS_ITS | Clinical Summary ---
Author Organization [facility] Address [address] [facility] [address] [place] [address] Phone Care Team Providers Care Desolderer Name Role Phone Paula Sandoval MD Primary Care Provider + [phone] Allergies Active Allergy Reactions Criticality Noted Date Comments Allopurinol Unknown 01/29/2021 Febuxostat Hives High 06/09/2024 Iodinated Contrast Media Unknown 01/29/2021 Iodine Unknown,Other (See Comments) 019 rr Levofloxacin Unknown 01/29/2021 Metformin Unknown 01/29/2021 Quetiapine Hallucination Low 06/09/2024 Medications nitroglycerin (NITROSTAT) 0.4 mg Tablet, Sublingual Place 0.4 mg under tongue every 5 minutes as needed for Chest Pain. Active docusate sodium (COLACE) 100 mg capsule Take 100 mg by mouth 2 times daily as needed for Constipation. Active fluticasone propionate (FLONASE) 50 mcg/spray Varna, Suspension nasal inhaler Administer 1 Varna in each nostril 2 times daily. Active acetaminophen (TYLENOL) 325 mg tablet Take 325 mg by mouth every 6 hours as needed. Active finasteride (PROSCAR) 5 mg tablet Take 5 mg by mouth daily. Active cholecalciferol , Vitamin D3, (VITAMIN D3) 25 mcg (1,000 unit) Capsule Take by mouth daily. Active insulin glargine (LANTUS) 100 unit/mL pen syringe Inject 50 Units by subcutaneous injection daily. Active tamsulosin (FLOMAX) 0.4 mg capsule Take 0.4 mg by mouth daily. Active diclofenac sodium (VOLTAREN) 1 % gel Apply 4 Grams to affected area 4 times daily as needed for Pain. Active loratadine (CLARITIN) 10 mg tablet Take 10 mg by mouth daily in the morning. Active atorvastatin (LIPITOR) 80 mg tablet Take 1 Tablet (80 mg) by mouth daily. 30 Tablet 04/06/2024 1:52 PM CDT 4 Active Additional Information Patient taking differently:80 mg OralDAILY LATE, Reported on 11/29/2024 furosemide (LASIX) 40 mg tablet Take 2 Tablets (80 mg) by mouth two times daily, 7 hours apart. 120 Tablet 04/06/2024 1:52 PM CDT 4 Active isosorbide mononitrate (IMDUR) 120 mg Extended Release 24 hour tablet Take 1 Tablet by mouth. 4 Active sevelamer carbonate (RENVELA) 800 mg Tablet Take 800 mg by mouth. 4 Active glucosamine-cho ndroitin (ARTHX DS) 500-400 mg Capsule Take 1 Capsule by mouth. Active carvediloL (COREG) 6.25 mg tablet Take 1 Tablet (6.25 mg) by mouth every 12 hours. 90 Tablet 3 5 Active epoetin janet (EPOGEN INJECTION) Epoetin Janet (Epogen) 5 11/09/19 26 Active carvediloL (COREG) 3.125 mg tablet Take 1 Tablet by mouth. 5 Active oxyCODONE-aceta minophen (PERCOCET) 5-325 mg tabletIndicatio ns:ESRD (end stage renal disease) ([facility]) Take 1 Tablet by mouth every 4 hours as needed for Pain, Moderate. Max Daily Amount: 6 Tablets 15 Tablet 11/29/2024 11:43 AM CDT 5 Active pantoprazole (PROTONIX) 40 mg Tablet, Delayed Release (E.C.) Take 1 Tablet (40 mg) by mouth 2 times daily. 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) 12/04/2024 Moderate protein malnutrition 04/02/2024 Dilated cardiomyopathy 04/02/2024 Acute combined systolic and diastolic congestive heart failure 04/02/2024 Mixed conductive and sensorineural hearing loss 03/29/2024 Hypertension 03/29/2024 Transient ischemic attack 03/29/2024 Type 2 diabetes mellitus wit h kidney complication, with long-term current use of insulin 03/29/2024 HLD (hyperlipidemia) 03/29/2024 CAD (coronary artery disease) 03/29/2024 History of coronary angioplasty with insertion o f stent 03/29/2024 Hx of CABG 03/29/2024 Benign prostatic hyperplasia without lower urinary tract symptoms 03/29/2024 Hemoptysis 03/29/2024 Community acquired pneumonia of right upper lobe of lung 03/29/2024 Lesion of right round valley kidney 03/29/2024 Acute hypoxic respiratory failure 03/29/2024 Anemia 03/29/2024 Thrombocytopenia 03/29/2024 Impaired mobility 02/02/2021 CLL (chronic lymphocytic leukemia) 02/02/2021 History of COVID-19 02/02/2021 Generalized muscle weakness 01/30/2021 Acute cystitis without hematuria 01/30/2021 Stage 4 chronic kidney disease 11/05/2019 Chronic lymphocytic leukemia 11/05/2019 Encounters Date Type Department Care Team Description 5 1:45 PM CDT Office Visit [facility] [place] [address] [phone] Klarissa Flowers MD ESRD (end stage renal disease) ([facility]) (Primary Dx); S/P arteriovenous (AV) graft placement 5 Telephone [facility] [place] [address] [phone] Klarissa Flowers MD Question 5 Orders Only [facility] HIM [address] [place] [phone] Provider, Abstract 5 10:50 AM CDT Anesthesia Event [facility] Endoscopy [address] [place] [phone] Tariq Ruggiero MD Edwards, Cary Dawn, RUBIN 5 8:20 AM CDT - 5 8:40 AM CDT Surgery [facility] Endoscopy [address] [place] [phone] Clinton Ascencio, ESOPHAGOGASTRODUODENOSCOPY 5 External Device Data STL ABSTRACTION Provider, Abstract 5 Travel 5 12:47 AM CDT - 5 8:00 PM CDT Hospital Encounter [facility] 3D Medical Telemetry [address] [place] [phone] Gema Iniguez, MD More Weiss, MD Francisco Hurst Ammar, MD Shah, MD Jason Dominguez, Ruperto Junior MD Severe sepsis with septic shock ([facility]) Discharge Disposition: Home or Self Care 5 7:30 AM CDT Anesthesia Event [facility] Operating Room [address] [place] [phone] Jeffry Walker MD 5 7:20 AM CDT - 5 9:09 AM CDT Surgery [facility] Operating Room [address] [place] [phone] Klarissa Flowers MD ARTERIOVENOUS GRAFT INSERTION 5 5:30 AM CDT - 5 12:05 PM CDT Hospital Encounter [facility] 3J Pre-Op [address] [place] [phone] Klarissa Flowers MD End stage renal disease (CMS/HCC) Discharge Disposition: Home or Self Care 5 Prep for Surgery [facility] [address] [phone] Klarissa Flowers MD ESRD (end stage renal disease) (CMS/HCC) (Primary Dx) 5 Telephone [facility] [address] [phone] Klarissa Flowers MD Surgery Talk 5 Telephone [facility] [address] [phone] Klarissa Flowers MD Erroneous encounter-disregard 5 Orders Only [facility] [address] [phone] Klarissa Flowers MD ESRD (end stage renal disease) ([facility]/HCC) (Primary Dx); Encounter for pre-operative examination; Abnormal coagulation profile 5 Telephone [facility] Vascular [address] [phone] Klarissa Flowers MD Appointment Notification 5 12:30 PM CDT Office Visit [facility] [address] [phone] Klarissa Flowers MD ESRD (end stage renal disease) ([facility]/HCC) (Primary Dx); Dilated cardiomyopathy ([facility]); Type 2 diabetes mellitus with stage 4 chronic kidney disease, with long-term current use of insulin ([facility]); Acute combined systolic and diastolic congestive heart failure ([facility]/HCC); Coronary artery disease involving round valley coronary artery of round valley heart without angina pectoris 5 11:00 AM CDT Ancillary Procedure [facility] [place] [phone] [place] [phone] Klarissa Flowers MD Benign hypertension with ESRD (end-stage renal disease) ([facility]/HCC) 5 Telephone [facility] [place] [phone] [place] [phone] Klarissa Flowers MD Appointment Verification 5 Telephone [facility] [place] [address] [place] [phone] Klarissa Flowers MD Question 5 Telephone [place] [phone] [place] [phone] Sotero Alejandro MD Follow Up; Question; Michelle returning a call 5 Telephone [place] [phone] [place] [phone] Sotero Alejandro MD Information; Follow Up 5 11:15 AM CDT Procedure visit [place] [phone] [place] [phone] Sotero Alejandro MD Chronic combined systolic and diastolic heart failure ([facility]/HCC) (Primary Dx); SSS (sick sinus syndrome) ([facility]) 5 11:15 AM CDT Office Visit [facility] [address] [place] [phone] Sotero Alejandro MD SSS (sick sinus syndrome) ([facility]) (Primary Dx) 5 Abstract [facility] [address] [place] [phone] Scanning, Provider 5 Orders Only [place] [phone] [place] [phone] Sotero Alejandro MD Chronic combined systolic and diastolic heart failure (CMS/HCC) (Primary Dx); SSS (sick sinus syndrome) (CMS/HCC) 5 External Device Data STL ABSTRACTION Provider, Abstract 5 Telephone [facility] [address] [facility] [address] [place] [phone] Lyndsey Dorsey NP Results (NM stress test); requesting sooner appt; Chest Pain; Shortness of Breath 5 Telephone [facility] [address] [facility] [address] [place] [phone] Lyndsey Dorsey NP 10/21/24 Willian Appt Needs Rescheduled 5 Telephone [facility] [place] [address] [place] [phone] Klarissa Flowers MD Needs Appointment 5 Results Follow-Up [facility] [address] [facility] [address] [place] [phone] Lyndsey Dorsey NP ECHO LIMITED W CONTRAST from Last 3 Months Immunizations Immunization Administration Dates Next Due (ADACEL/BOOSTRIX)(10 YR UP) TDAP VACCINE, 0.5ML, IM 12/20/2020 (HEPLISAV-B)(18 YR UP) HEPAT ITIS B VACCINE CPG-ADJUVANTED (HEPB-CPG) 2-4 DOSE, IM 04/29/2024 (PFIZER)(12 YR UP) COVID-19 VACCINE - EMERGENCY USE AUTHORIZATION, MRNA, [id number](PF) 30 MCG/0.3 ML IM SUSP 08/18/2020,07/24/2020,06/23/2020 (PNEUMOVAX 23)(50 YRS UP) PN EUMOCOCCAL POLYSACCHARIDE (PPV23) 0.5 ML, IM 05/24/2021,2011,06/23/2010 (PREVNAR 13)(6 WKS UP) PNEUM OCOCCAL CONJUGATE (PCV13) 0.5 ML, IM 12/20/2020,05/31/2016 (SHINGRIX)(50 YRS UP) ZOSTER VACCINE RECOMBINANT, 0.5 ML, IM 05/24/2021,03/12/2021,03/07/2021 Adacel Vaccine > 7 Yo IM 06/04/2007 Influenza Seasonal Unspecifi ed Formulation IM 03/12/2021,05/23/2014,2011 Influenza, Unspecified Formulation 03/23,2012,03/30/2004,03/23 Pneumococcal vaccine, unspec ified formulation 03/12/2021 Td(adult) Unspecified Formulation 11/30/2004 Family History Medical History Relation Name Comments Heart Disease Father Hypertension Father Diabetes Mother Heart Disease Mother Stroke Other Relation Name Status Comments Father Mother Other Social History Tobacco Use Types Packs/Day Years Used Date Smoking Tobacco: Former Cigarettes Smokeless Tobacco: Never Tobacco Cessation:Counseling Given: Not Answered Alcohol Use Standard Drinks/Week Comments Not Currently [...] on file Sexual Orientation Not on file Last Filed Vital Signs Vital Sign Reading Time Taken Comments Blood Pressure 140/62 12/17/2024 2:04 PM CDT Pulse 63 12/17/2024 2:04 PM CDT Temperature 36.6 C (97.8 F) 12/11/2024 4:47 PM CDT Respiratory Rate 18 12/11/2024 4:47 PM CDT Oxygen Saturation 92% 12/17/2024 2:04 PM CDT Inhaled Oxygen Concentration - - Weight 106.8 kg (235 lb 6.4 oz) 12/17/2024 2:04 PM CDT Height 180.3 cm (5' 11 ) 12/17/2024 2:04 PM CDT Body Mass Index 32.83 12/17/2024 2:04 PM CDT Plan of Treatment Upcoming Encounters Date Type Department Care Team (Late st Contact Info) Description 12/23/2024 12:00 PM CDT Office Visit [facility] [place] [address] [place] [phone] Umm Dotson, [address] [place] [address] 01/21/2025 11:00 AM CDT Office Visit [facility] [address] [facility] [address] [place] [phone] Lyndsey Dorsey, MANUFACTURING INDUSTRIAL ENGINEER [address] [facility] [address] [place] [phone] Health Maintenance Due Date Last Done Comments DIABETES ANNUAL FOOT EXAM 1963 RSV VACCINE (60+ or ) (1 - 1-dose 75+ series) 2019 COVID-19 Vaccine (2023-2 5 season) 2024 08/18/2020, 07/24/2020, 06/23/2020 DIABETES ANNUAL RETINAL EXAM 12/08/2024 12/09/2023, 12/09/2023 DIABETES MICROALBUMIN ANNUAL SCREEN 03/29/2025 03/29/2024 LDL CHOLESTEROL ANNUAL 03/29/2025 03/29/2024, 2020 DIABETES HBA1C Q 6 MONTHS 06/02/20252024, 03/29/2024, 03/28/2024, Additional history exists DTAP/TDAP/TD VACCINES (3 - T d or Tdap) 12/20/2030 12/20/2020, 06/04/2007, 11/30/2004 PNEUMOCOCCAL VACCINE 50+ YEARS Completed 1 07/25/2020, 03/12/2021, 12/20/2020, Additional history exists ZOSTER VACCINE Completed 05/24/2021, 02/22, 03/07/2021 INFLUENZA VACCINE Completed 06/09/2024, , 03/12/2021, Additional history exists Medical Devices Implanted Type Area Sliver Chopper Device Identifier Shelf Expiration Date Model / Serial / Lot Cath Dialysis Glidepath 14.5fr 23cm [facility] [id number] - [id number] Implanted:Qty: 1 on 04/01/2024 by Kim Flowers MD at [facility] Catheter Right: Chest BARD NUVIA VASC [id number] 09/20/2025 [id number] / / [id number] Clip Ligating Horizon Red [id number] - [facility] [place] [id number] Implanted:Qty: 1 on 11/29/2024 by Klarissa Flowers MD at [facility] Clip Right: Arm [employer] [id number] 08/06/2029 [id number] / / [id number] Clip Ligating Horizon Med Ti [id number] - [facility] [place] - [id number] Implanted:Qty: 1 on 11/29/2024 by Klarissa Flowers MD at [facility] Clip Right: Arm TELE[employer]LEX- [employer] S[employer] [id number] 05/30/2029 [id number] / / [id number] Graft Vasc Propaten [id number] - [id number] Implanted:Qty: 1 on 11/29/2024 by Klarissa Flowers MD at [facility] Graft Right: Arm [employer] [id number] 07/19/2027 [id number] / [id number] / Agent Hemostat Surgicel 2x3in 1952s - [id number] Implanted:Qty: 1 on 11/29/2024 by Klarissa Flowres MD at [facility] Hemostatic Right: Arm [employer]- [employer] [id number] 09/20/2028 [id number] / / [id number] Pacemaker Procedures Procedure Name Priority Date/Time Associated Diagnosis Comments TELEMETRY REPORT 12/13/2024 3:48 PM CDT POC GLUCOSE Routine 12/11/2024 5:46 PM CDT POC GLUCOSE Routine 12/11/2024 12:30 PM CDT HEMODIALYSIS Routine 12/11/2024 12:00 PM CDT DIFFERENTIAL, MANUAL Routine 12/11/2024 10:03 AM CDT CBC WITH DIFFERENTIAL Routine 12/11/2024 10:03 AM CDT DIFFERENTIAL, MANUAL Routine 12/11/2024 8:58 AM CDT RENAL FUNCTION PANEL Routine 12/11/2024 8:58 AM CDT CBC WITH DIFFERENTIAL Routine 12/11/2024 8:58 AM CDT POC GLUCOSE [...] POC GLUCOSE Routine 12/08/2024 7:34 AM CDT FERRITIN Routine 12/08/2024 4:23 AM CDT IRON, TIBC, AND PERCENT SATURATION Routine 12/08/2024 4:23 AM CDT DIFFERENTIAL, MANUAL Routine 12/08/2024 4:23 AM CDT COMPREHENSIVE METABOLIC PANEL Routine 4:23 AM CDT CBC WITH DIFFERENTIAL Routine 12/08/2024 4:23 AM CDT POC GLUCOSE Routine 12/08/2024 2:57 AM CDT POC GLUCOSE Routine 12/07/2024 9:25 PM CDT POC GLUCOSE Routine 12/07/2024 5:15 PM CDT POC GLUCOSE Routine 12/07/2024 11:48 AM CDT POC GLUCOSE Routine 12/07/2024 8:15 AM CDT DIFFERENTIAL, MANUAL Routine 12/07/2024 6:58 AM CDT UNFRACTIONATED HEPARIN ACTIVITY Timed Study 12/07/2024 6:58 AM CDT COMPREHENSIVE METABOLIC PANEL Routine 6:58 AM CDT CBC WITH DIFFERENTIAL Routine 12/07/2024 6:58 AM CDT POC GLUCOSE Routine 12/07/2024 1:14 AM CDT UNFRACTIONATED HEPARIN ACTIVITY Timed Study 12/06/2024 11:44 PM CDT UNFRACTIONATED HEPARIN ACTIVITY Timed Study 12/06/2024 5:51 PM CDT POC GLUCOSE Routine 12/06/2024 4:30 PM CDT PT EVAL AND TREAT Routine 12/06/2024 2:09 PM CDT OT EVAL AND TREAT Routine 12/06/2024 2:09 PM CDT LACTIC ACID Stat 12/06/2024 1:48 PM CDT POC GLUCOSE Routine 12/06/2024 10:59 AM CDT UNFRACTIONATED HEPARIN ACTIVITY Timed Study 12/06/2024 10:12 AM CDT POC GLUCOSE Routine 12/06/2024 6:54 AM CDT LIPASE Routine 12/06/2024 4:51 AM CDT DIFFERENTIAL, MANUAL Routine 12/06/2024 4:51 AM CDT COMPREHENSIVE METABOLIC PANEL Routine 4:51 AM CDT CBC WITH DIFFERENTIAL Routine 12/06/2024 4:51 AM CDT UNFRACTIONATED HEPARIN ACTIVITY Timed [...] ACTIVITY Timed Study 12/05/2024 3:27 AM CDT BASIC METABOLIC PANEL Routine 12/05/2024 3:27 AM CDT CBC WITH DIFFERENTIAL Routine 12/05/2024 3:27 AM CDT POC GLUCOSE Routine 12/05/2024 2:09 AM CDT POC GLUCOSE Routine 12/05/2024 12:12 AM CDT POC GLUCOSE Routine 12/04/2024 9:17 PM CDT UNFRACTIONATED HEPARIN ACTIVITY Routine 12/04/2024 9:11 PM CDT CBC WITHOUT DIFFERENTIAL Routine 025 9:11 PM CDT TROPONIN Routine 12/04/2024 7:41 PM CDT LACTIC ACID Stat 12/04/2024 7:41 PM CDT COMPREHENSIVE METABOLIC PANEL [...] EKG 12-LEAD Routine 12/04/2024 4:20 AM CDT DIFFERENTIAL, MANUAL Routine 12/04/2024 3:33 AM CDT TROPONIN 2 HR, 5TH GEN Timed Study 3:33 AM CDT CBC WITH DIFFERENTIAL Routine 12/04/2024 3:33 AM CDT VANCOMYCIN LEVEL RANDOM Routine 12/05/19 1:57 AM CDT PROCALCITONIN Routine 12/04/2024 1:57 AM CDT TROPONIN BASELINE, 5TH GEN Stat 12/04 1:57 AM CDT BASIC METABOLIC PANEL Routine 12/04/2024 1:57 AM CDT COMPREHENSIVE METABOLIC PANEL Routine 12:41 PM CDT TELEMETRY REPORT 12/01/2024 10:48 AM CDT PROCEDURE PHOTOGRAPHS 12/01/2024 10:48 AM CDT TN ANESTHESIA BLOCK PB PLACEHOLDER CHARGE Routine 11/29/2024 8:07 AM CDT TN CRTJ ARVEN FSTL XCP DIR ARVEN ANAST NONAUTOG GRF 11/29/2024 7:20 AM CDT End stage renal disease (CMS/HCC) VERIFICATION BLOOD GROUP Stat 025 6:48 AM CDT EKG 12-LEAD Pending Discharge 11/29/2024 6:47 AM CDT TYPE AND SCREEN Stat 11/29/2024 6:47 AM CDT DIFFERENTIAL, MANUAL Stat 11/29/2024 6:47 AM CDT PROTIME-INR Stat 11/29/2024 6:47 AM CDT CBC WITH DIFFERENTIAL Stat 11/29/2024 6:47 AM CDT BASIC METABOLIC PANEL Stat 11/29/2024 6:47 AM CDT US DUPLEX PREOP VESS ASSESS LT Routine 0 11/12/2024 11:13 AM CDT Benign hypertension with ESRD (end-stage renal disease) (CMS/HCC) TN PROGRAM EVAL IMPLANTABLE IN PERSN DUAL LD PACER Routine 10/26/2024 11:10 AM CDT Chronic combined systolic and diastolic heart failure (CMS/HCC) SSS (sick sinus syndrome) (CMS/HCC) TN ECG ROUTINE ECG W/LEAST 1 2 LDS W/I&R Routine 10/25/2024 1:53 PM CDT Chronic combined systolic and diastolic heart failure (CMS/HCC) SSS (sick sinus syndrome) (CMS/HCC) MICROALBUMIN/CREATININE RATI O, RANDOM UR Routine 03/29/2024 6:06 PM CDT LIPID RFLX Routine 03/29/2024 1:24 AM CDT HEMOGLOBIN A1C Routine 03/29/2024 1:24 AM CDT from Last 3 Months or Most Recently Relevant to Health Maintenance Results * TELEMETRY REPORT (12/13/2024 3:48 PM CDT) Only the most recent of2 resultswithin the time period is included. us Provider Scanning ECG ORDERABLES Final Result * POC GLUCOSE (12/11/2024 5:46 PM CDT) Only the most recent of38 resultswithin the time period is included. GLUCOSE POC 99 74 - 99 mg/dL 12/11/2024 5:46 PM CDT [facility] SPECIMEN SOURCE, GLUCOSE POC Capillary 12/11/2024 5:46 PM CDT [facility] Blood, whole 12/11/2024 5:46 PM CDT 12/11/2024 6:17 PM CDT Ruperto Gomez MD POINT OF CARE TESTING Fi nal Result [facility] CLIA # [id number] [address] [place] [address] * HEMODIALYSIS (12/11/2024 12:00 PM CDT) Narrative [facility] - 12/11/2024 12:00 PM CDT Jim Farooq MD 12/11/2024 12:22 PM [facility] - Procedure Note Primary [employer]cre[employer]man: Dr. Ro West PROCEDURE: Intermittent Hemodialysis INDICATION: [...] stores adequate tsat 29% Addy Jacobs NP [facility] 12/11/24, 12:00 PM us Dustin Michel ANP DIALYSIS ORDERABLES Final Res ult [facility] CLIA # [id number] [address] [place] [address] * (ABNORMAL) MANUAL DIFFERENTIAL (12/11/2024 10:03 AM CDT) Only the most recent of10 resultswithin the time period is included. SEGMENTED NEUTROPHILS 3(L) 36 - 66 % 12/11/2024 11:25 AM CDT [facility] LYMPHOCYTES RELATIVE 97(H) 24 - 44 % 12/11/2024 11:25 AM CDT [facility] PLATELET EST. Decreased 12/11/2024 11:25 AM CDT [facility] NEUTROPHILS ABSOLUTE COUNT 1.78(L) 2.00 - 8.00 K/uL 12/11/2024 11:25 AM CDT [facility] LYMPHOCYTES ABSOLUTE 57.52(H) 1.20 - 4.00 K/uL 12/11/2024 11:25 AM CDT [facility] ATYPICAL LYMPHS ABSOLUTE 12/11/2024 11:25 AM CDT [facility] ANISOCYTOSIS 2+ /hpf 12/11/2024 11:25 AM CDT [facility] POIKILOCYTES 1+ /hpf 12/11/2024 11:25 AM T [facility] MACROCYTES 1+ /hpf 12/11/2024 11:25 AM T [facility] TOTAL CELLS COUNTED IN DIFF 100 12/11/2024 11:25 AM [facility] Blood Venipuncture / Unknown 12/11/2024 10:03 AM CDT 12/11/2024 10:37 AM CDT Ruperto Gomez MD HEMATOLOGY ORDERABLES CO M Final Result [facility] CLIA # [id number] [address] [place] [id number] * (ABNORMAL) CBC WITH DIFFERENTIAL (12/11/2024 10:03 AM CDT) Only the most recent of10 resultswithin the time period is included. WBC 59.3(H) 4.8 - 10.8 K/uL 12/11/2024 11:25 AM T [facility] RBC 2.30(L) 4.60 - 6.20 M/uL 12/11/2024 11:25 AM CDT [facility] HEMOGLOBIN 7.3(L) 14.0 - 18.0 g/dL 12/11/2024 11:25 AM CDT [facility] HEMATOCRIT 23.5(L) 41.0 - 53.0 % 12/11/2024 11:25 AM CDT [facility] MCV 102.2 84.0 - 103.0 fL 12/11/2024 11:25 AM T [facility] MCH 31.7 27.0 - 34.0 pg 12/11/2024 11:25 AM CDT [facility] MCHC 31.1 30.0 - 35.0 g/dL 12/11/2024 11:25 AM T [facility] PLATELETS 72(L) 140 - 440 K/uL 12/11/2024 11:25 AM T [facility] MPV 11.3 8.9 - 12.8 fL 12/11/2024 11:25 AM [facility] RDW 18.3(H) 11.0 - 14.5 % 12/11/2024 11:25 AM [facility] RDW-STDEV 67.4(H) 37.0 - 54.0 fL 12/11/2024 11:25 AM [facility] SMEAR REVIEWED: - See Manual Diff. 12/11/2024 11:25 AM [facility] Blood Venipuncture / Unknown 12/11/2024 10:03 AM CDT 12/11/2024 10:37 AM CDT us Ruperto Gomez MD HEMATOLOGY ORDERABLES Fi nal Result [facility] CLIA # [id number] [address] [address] [place] [address] * (ABNORMAL) RENAL FUNCTION PANEL (12/11/2024 8:58 AM CDT) SODIUM 134(L) 136 - 145 mmol/L 12/11/2024 9:55 AM T [facility] POTASSIUM 4.2 3.5 - 5.1 mmol/L 12/11/2024 9:55 AM [facility] CHLORIDE 96(L) 98 - 107 mmol/L 12/11/2024 9:55 AM [facility] CO2 22 22 - 29 mmol/L 12/11/2024 9:55 AM [facility] CALCIUM 8.2(L) 8.8 - 10.2 mg/dL 12/11/2024 9:55 AM [facility] BUN 59(H) 8 - 23 mg/dL 12/11/2024 9:55 AM [facility] CREATININE 5.39(H) 0.67 - 1.17 mg/dL 12/11/2024 9:55 AM [facility] Comment:The GFR result is no t clinically significant on patients <18 or >70 years of age. GLUCOSE 196(H) 74 - 99 mg/dL 12/11/2024 9:55 AM [facility] ALBUMIN 3.8 3.5 - 5.2 g/dL 12/11/2024 9:55 AM [facility] PHOSPHORUS 6.0(H) 2.5 - 4.5 mg/dL 12/11/2024 9:55 AM [facility] GFR 10 mL/min/1. 73 sq meter 12/11/2024 9:55 AM [facility] Comment:eGFR calculated with 2020 CKD-EPI equation. Vegetarian diet, extremely high or low muscle mass, and may affect results. Cystatin C with Glomerular Filtration Rate is a suitable alternative for these patients. ANION GAP 16 9 - 20 mmol/L 12/11/2024 9:55 AM [facility] Blood Venipuncture / Unknown 12/11/2024 8:58 AM CDT 12/11/2024 9:25 AM CDT us Ro West MD CHEMISTRY ORDERABLES Final Result [facility] CLIA # [id number] [address] [address] * (ABNORMAL) HEMOGLOBIN AND HEMATOCRIT (12/10/2024 8:11 PM CDT) HEMOGLOBIN 7.6(L) 14.0 - 18.0 g/dL 12/10/2024 8:49 PM CDT [facility] HEMATOCRIT 25.0(L) 41.0 - 53.0 % 12/10/2024 8:49 PM CDT [facility] Blood Venipuncture / Unknown 12/10/2024 8:11 PM CDT 12/10/2024 8:32 PM CDT Jazmin Lema MD HEMATOLOGY ORDERABLES Final Result Performing Organization Address City/State/[facility] Co de Phone Number [facility] CLIA # [id number] [address] [address] * UPPER ENDOSCOPY REPORT (12/10/2024 11:09 AM CDT) Narrative Procedure Note Clinton Ascencio DO - 12/10/2024 11:09 AM CDT [facility] GI Patient Name: Nisa Renae Procedure Date: [...] Withdrawal Time Scope In: Scope Out: [address] [place], [place] Clinton Ascencio DO GI PROCEDURE ORDERABLES Final Result * PATHOLOGY (12/10/2024 11:00 AM CDT) CASE REPORT Surgical Pathology Report Case: [id number] Authorizing Provider: Clinton Ascencio DO Collected: 12/10/2024 11:00 AM Ordering Location: [facility] Received: 12/10/2024 03:55 PM Endoscopy Pathologist: Izaiah Sandoval MD Specimen: Stomach, ulcers 11:19 AM CDT [facility] FINAL DIAGNOSIS A. 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 pylori by immunohistochemistry REV: GERMAIN Sandoval MD [id number] 11:19 AM CDT [facility] at 1119 CDT DIAGNOSIS COMMENT The patient's clinical history of CLL/SLL is noted. It is unclear if the fragment of ulcer bed is from the stomach or possibly a contaminant. Clinical and endoscopic correlation is recommended. 5 11:19 AM T [facility] GROSS DESCRIPTION A. Received in formalin labeled Renae -stomach ulcers are two fragments of tissue up to 0.4 cm. The specimen is submitted in toto in A1. Elif Shine 5 11:19 AM [facility] MICROSCOPIC DESCRIPTION After review of H&E [...] highlight polytypic plasma cells. 5 11:19 AM [facility] OPERATIVE PROCEDURE 1: ESOPHAGOGASTRODUODENOSCO PY 5 11:19 AM [facility] CLINICAL INFORMATION A Bxs of gastric ulcers Bxs of gastric ulcers 5 11:19 AM [facility] COMMENT The [employer] voice-activated dictation system may have been used [...] determined by the Diagnostic Immunohistochemistry Laboratory of [facility] in compliance with CLIA'88 regulations. Some of these tests rely on the use of analyte specific reagents and are subject to specific labeling requirements by the FDA. All controls show appropriate reactivity. This testing was developed by the Diagnostic Immunohistochemistry Laboratory of [facility]. It has not been cleared or approved by the FDA. The FDA has determined that such clearance or approval is not necessary. 11:19 AM CDT [facility] Tissue ENTIRE STOMACH / Unknown Collection / Unknown 12/10/2024 11:00 AM CDT 12/10/2024 3:55 PM CDT Comment:Bxs of gastric ulcer s us Clinton Ascencio DO PATHOLOGY/CYTOLOGY ORDE RABMILAGROS Final Result Performing Organization Address [facility]/ZIP Co de Phone Number [facility] CLIA # [id number] [address] [address] [place] [address] * (ABNORMAL) OCCULT BLOOD GUAIAC DIAGNOSTIC (12/08/2024 11:32 AM CDT) OCCULT BLOOD, STOOL Positive( A) Negative 12/08/2024 5:38 PM CDT [facility] Stool STOOL SPECIMEN / Unknown Collection / Unknown 12/08/2024 11:32 AM CDT 12/08/2024 5:28 PM CDT us Jazmin Lema MD BODY FLUIDS AND STOOLS Final Result Performing Organization Address [facility] Co de Phone Number [facility] CLIA # [id number] [address] [address] * (ABNORMAL) IRON, TIBC, AND PERCENT SATURATION (12/08/2024 4:23 AM CDT) IRON 55(L) 59 - 158 ug/dL 12/09/2024 4:39 PM CDT [facility] TIBC 187(L) 250 - 450 ug/dL 12/09/2024 4:39 PM CDT [facility] IRON % SATURATION 29 15 - 60 % 12/09/2024 4:39 PM CDT [facility] Blood Venipuncture / Unknown 12/08/2024 4:23 AM CDT 12/08/2024 4:33 AM CDT Umm Sugey Dotson DO CHEMISTRY ORDERABLES Fi nal Result Performing Organization Address [facility] de Phone Number [facility] CLIA # [id number] [address] [address] * (ABNORMAL) FERRITIN (12/08/2024 4:23 AM CDT) FERRITIN 917.2(H) 30.0 - 400.0 ng/mL 12/09/2024 4:38 PM CDT [facility] Blood Venipuncture / Unknown 12/08/2024 4:23 AM CDT 12/08/2024 4:33 AM CDT Umm Dotson DO CHEMISTRY ORDERABLES Fi nal Result Performing Organization Address [facility] de Phone Number [facility] CLIA # [id number] [address] [address] * (ABNORMAL) COMPREHENSIVE METABOLIC PANEL (12/08/2024 4:23 AM CDT) Only the most recent of5 resultswithin the time period is included. SODIUM 136 136 - 145 mmol/L 12/08/2024 5:13 AM CDT [facility] POTASSIUM 4.3 3.5 - 5.1 mmol/L 12/08/2024 5:13 AM CDT [facility] CHLORIDE 98 98 - 107 mmol/L 12/08/2024 5:13 AM CDT [facility] CO2 26 22 - 29 mmol/L 12/08/2024 5:13 AM CDT [facility] CALCIUM 8.8 8.8 - 10.2 mg/dL 12/08/2024 5:13 AM CDT [facility] BUN 54(H) 8 - 23 mg/dL 12/08/2024 5:13 AM [facility] CREATININE 4.59(H) 0.67 - 1.17 mg/dL 12/08/2024 5:13 AM [facility] Comment:The GFR result is no t clinically significant on patients <18 or >70 years of age. GLUCOSE 153(H) 74 - 99 mg/dL 12/08/2024 5:13 AM [facility] TOTAL PROTEIN 5.4(L) 6.4 - 8.3 g/dL 12/08/2024 5:13 AM [facility] ALBUMIN 3.5 3.5 - 5.2 g/dL 12/08/2024 5:13 AM [facility] BILIRUBIN TOTAL 0.4 0.0 - 1.0 mg/dL 12/08/2024 5:13 AM [facility] ALKALINE PHOSPHATASE 85 40 - 129 U/L 12/08/2024 5:13 AM [facility] AST 28 10 - 50 U/L 12/08/2024 5:13 AM [facility] ALT 76(H) <=50 U/L 12/08/2024 5:13 AM [facility] GFR 12 mL/min/1. 73 sq meter 12/08/2024 5:13 AM [facility] Comment:eGFR calculated with 2020 CKD-EPI equation. Vegetarian diet, extremely high or low muscle mass, and may affect results. Cystatin C with Glomerular Filtration Rate is a suitable alternative for these patients. ANION GAP 12 9 - 20 mmol/L 12/08/2024 5:13 AM [facility] Blood Venipuncture / Unknown 12/08/2024 4:23 AM CDT 12/08/2024 4:33 AM CDT us Dustin Michel ANP CHEMISTRY ORDERABLES Final Re sult [facility] CLIA # [id number] [facility] [address] * UNFRACTIONATED HEPARIN MONITORING (12/07/2024 6:58 AM CDT) Only the most recent of9 resultswithin the time period is included. Pathologist [facility] [place] ANTI-XA UNFRAC HEP 0.41 See Interpretation IU/mL 12/07/2024 7:19 AM CDT [facility] Blood Venipuncture / Unknown 12/07/2024 6:58 AM CDT 12/07/2024 7:02 AM CDT Narrative [facility] - 12/07/2024 7:19 AM CDT Therapeutic Range: PT/DVT Heparin Protocol 0.3 - 0.7 IU/ml Cardiac Heparin Protocol 0.3 - 0.6 IU/ml The reference range for this test is specific to the anticoagulant and is not appropriate for monitoring patients on a DOAC protocol. us Jazmin Lema MD HEMATOLOGY ORDERABLES Final Result [facility] CLIA # [id number] [address] [place] [address] * LACTIC ACID (12/06/2024 1:48 PM CDT) Only the most recent of3 resultswithin the time period is included. [facility] LACTIC ACID 2.0 <=2.0 mmol/L 12/06/2024 2:15 PM CDT [facility] Blood Venipuncture / Unknown 12/06/2024 1:48 PM CDT 12/06/2024 1:51 PM CDT us Dustin HOPE CHEMISTRY ORDERABLES Final Re sult [facility] CLIA # [id number] Formerly [facility] [address] [address] [place] [address] * LIPASE (12/06/2024 4:51 AM CDT) LIPASE 14 13 - 60 U/L 12/06/2024 1:17 PM CDT [facility] Blood Venipuncture / Unknown 12/06/2024 4:51 AM CDT 12/06/2024 4:59 AM CDT Dustin Michel ANP CHEMISTRY ORDERABLES Final Re sult [facility] CLIA # [id number] [facility]ly [facility] [address] [address] * XR ABDOMEN FOR FEEDING TUBE 1 [...] the diaphragm looped in the gastric fundus. Jim Asif MD DIAGNOSTIC IMAGING ORDERABLES Final Result * XR CHEST PA OR AP 1 [...] interstitial edema at the lung bases. Dustin HOPE DIAGNOSTIC IMAGING ORDERABLES Final Result * XR [...] HOPE DIAGNOSTIC IMAGING ORDERABLES Final Result * URINE CULTURE (12/05/2024 10:28 AM CDT) [facility] CULTURE No growth 12/06/2024 9:43 AM CDT [facility] Urine URINE SPECIMEN OBTAINED BY CLEAN CATCH PROCEDURE / Unknown Collection / Unknown 12/05/2024 10:28 AM CDT 12/05/2024 10:32 AM CDT Walt Aguero MD MICROBIOLOGY - GENERAL ORDERABLES Final Result [facility] CLIA # [id number] [address] [place] [address] [place] [address] * (ABNORMAL) BASIC METABOLIC PANEL PLUS (ADD ON CMP TO BMP) (12/05/2024 8:54 AM CDT) [facility] TOTAL PROTEIN 6.0(L) 6.4 - 8.3 g/dL 12/05/2024 3:17 PM CDT [facility] ALBUMIN 3.8 3.5 - 5.2 g/dL 12/05/2024 3:17 PM CDT [facility] BILIRUBIN TOTAL 0.8 0.0 - 1.0 mg/dL 12/05/2024 3:17 PM CDT [facility] ALKALINE PHOSPHATASE 76 40 - 129 U/L 12/05/2024 3:17 PM CDT [facility] AST 60(H) 10 - 50 U/L 12/05/2024 3:17 PM CDT [facility] ALT 120(H) <=50 U/L 12/05/2024 3:17 PM CDT [facility] Blood Venipuncture / Unknown 12/05/2024 8:54 AM CDT 12/05/2024 9:11 AM CDT Dsutin Michel ANP CHEMISTRY ORDERABLES Final Re sult Performing Organization Address [facility]/ZIP Co de Phone Number [facility] CLIA # [id number] [address] [place] [address] * (ABNORMAL) TROPONIN (12/05/2024 8:54 AM CDT) Only the most recent of2 resultswithin the time period is included. [facility] TROPONIN T, 5TH GEN 3,843(HH) <=15 ng/L 12/05/2024 9:53 AM CDT [facility] Blood Venipuncture / Unknown 12/05/2024 8:54 AM CDT 12/05/2024 9:11 AM CDT Narrative [facility] - 12/05/2024 9:53 AM CDT Troponin elevated. Dustin Michel ANP CHEMISTRY ORDERABLES Final Re sult Performing Organization Address City/[facility]/ZIP Co de Phone Number [facility] CLIA # [id number] [address] [address] * EKG 12-LEAD (12/05/2024 8:05 AM CDT) Only the most recent of5 resultswithin the time period is included. 12/05/2024 8:05 AM CDT Narrative INTERFACE SYSTEM - 12/05/2024 1:[address] [address] Test Date: 2024-12-05 Pat Name: NISA RENAE Department: 12 Room: [address] [place] [address] Gender: Male [employer] Knitter: [email or web address] : 1945 Requested By: Order Number: [id number] Reading MD: Bianca Kelly Measurements Intervals [place] Rate: 65 P: 96 TN: 0 QRS: -76 QRSD: 200 T: 95 QT: 496 QTc: 515 Interpretive Statements Ventricular-paced rhythm Abnormal ECG Electronically Signed On 12-05-2024 13:09:51 CDT by Bianca Kelly Procedure Note Provider, Historical - 12/05/[address] [address] Test Date: 2024-12-05 Pat Name: NISA RENAE Department: 12 Room: [address] [place] [address] Gender: Male [employer] Surgical El[employer] Knitter: [email or web address] : 1945 Requested By: Order Number: [id number] Reading : Bianca Kelly Measurements Intervals [place] Rate: 65 P: 96 TN: 0 QRS: -76 QRSD: 200 T: 95 QT: 496 QTc: 515 Interpretive Statements Ventricular-paced rhythm Abnormal ECG Electronically Signed On 12-05-2024 13:09:51 CDT by Bianca Kelly us Dustin Michel ANP ECG ORDERABLES Final Result INTERFACE SYSTEM Refer to clinic/hospital department * (ABNORMAL) BASIC METABOLIC PANEL (12/05/2024 3:27 AM CDT) Only the most recent of3 resultswithin the time period is included. SODIUM 134(L) 136 - 145 mmol/L 12/05/2024 4:08 AM T [facility] POTASSIUM 5.3(H) 3.5 - 5.1 mmol/L 12/05/2024 4:08 AM T [facility] CHLORIDE 96(L) 98 - 107 mmol/L 12/05/2024 4:08 AM T [facility] CO2 22 22 - 29 mmol/L 12/05/2024 4:08 AM T [facility] CALCIUM 9.5 8.8 - 10.2 mg/dL 12/05/2024 4:08 AM T [facility] BUN 45(H) 8 - 23 mg/dL 12/05/2024 4:08 AM [facility] CREATININE 3.93(H) 0.67 - 1.17 mg/dL 12/05/2024 4:08 AM [facility] Comment:The GFR result is no t clinically significant on patients <18 or >70 years of age. GLUCOSE 291(H) 74 - 99 mg/dL 12/05/2024 4:08 AM T [facility] GFR 15 mL/min/1. 73 sq meter 12/05/2024 4:08 AM [facility] Comment:eGFR calculated with 2020 CKD-EPI equation. Vegetarian diet, extremely high or low muscle mass, and may affect results. Cystatin C with Glomerular Filtration Rate is a suitable alternative for these patients. ANION GAP 16 9 - 20 mmol/L 12/05/2024 4:08 AM T [facility] Blood Venipuncture / Unknown 12/05/2024 3:27 AM CDT 12/05/2024 3:33 AM CDT us Tigist RUSSELL CHEMISTRY ORDERABLES Final Resu lt [facility] CLIA # [id number] [address] [address] [place] [address] * (ABNORMAL) CBC WITHOUT DIFFERENTIAL (12/04/2024 9:11 PM CDT) [facility] WBC 22.6(H) 4.8 - 10.8 K/uL 12/04/2024 9:18 PM CDT [facility] RBC 3.39(L) 4.60 - 6.20 M/uL 12/04/2024 9:18 PM CDT [facility] HEMOGLOBIN 10.6(L) 14.0 - 18.0 g/dL 12/04/2024 9:18 PM CDT [facility] HEMATOCRIT 34.3(L) 41.0 - 53.0 % 12/04/2024 9:18 PM CDT [facility] MCV 101.2 84.0 - 103.0 fL 12/04/2024 9:18 PM CDT [facility] MCH 31.3 27.0 - 34.0 pg 12/04/2024 9:18 PM CDT [facility] MCHC 30.9 30.0 - 35.0 g/dL 12/04/2024 9:18 PM CDT [facility] PLATELETS 97(L) 140 - 440 K/uL 12/04/2024 9:18 PM CDT [facility] MPV 10.5 8.9 - 12.8 fL 12/04/2024 9:18 PM CDT [facility] RDW 18.4(H) 11.0 - 14.5 % 12/04/2024 9:18 PM CDT [facility] RDW-STDEV 69.1(H) 37.0 - 54.0 fL 12/04/2024 9:18 PM CDT [facility] Blood Venipuncture / Unknown 12/04/2024 9:11 PM CDT 12/04/2024 9:15 PM CDT us Tigist RUSSELL HEMATOLOGY ORDERABLES Final Res ult [facility] CLIA # [id number] [address] [id number] * ECHOCARDIOGRAM W/ CONTRAST AGENT (12/04/2024 10:45 AM CDT) EJECTION FRACTION 26 INTERFACE SYSTEM 12/04/2024 8:57 AM CDT Narrative INTERFACE SYSTEM - 12/04/2024 11:13 AM CDT [facility] Cardiovascular Services Echocardiography Laboratory [address] [place] [address] Transthoracic Echocardiography Patient: Nisa Renae Study ID: ECHO COMPLETE - Gender: Manuelito : 1945 Age: 79 Room: [facility] Study Date: 12/04/2024 Pt Status: Inpatient Study Time: 08:57:28 AM CSN #: [id number] Ordering:Tigist Dodson Tobacco Drier Operator: Gagandeep Nava [facility] Indications and History: Hypotension [...] (H) scot values outside specified reference range. [facility] Echo Labs are accredited with the Intersocietal Accreditation Commission - Echocardiography. Prepared and Electronically Authenticated Conrado Shearer Confirmed 12/04/2024 11:13 Procedure Note Conrado Shearer MD - 12/04/2024 [facility] Cardiovascular Services Echocardiography Laboratory [address] [place] [address] Transthoracic Echocardiography Patient: Nisa Renae Study ID: ECHO COMPLETE- Gender: M : 1945 Age: 79 Room: [facility] Study Date: 12/04/2024 Pt Status: Inpatient Study Time: 08:57:28 AM [facility] #: [id number] Ordering:Tigist Dodson Tobacco Drier Operator: Gagandeep Nava [facility] Indications and History: Hypotension [...] (H) scot values outside specified reference range. [facility] Echo Labs are accredited with theDignity Health Mercy Gilbert Medical Centersocietal Accreditation Commission - Echocardiography. Prepared and Electronically Authenticated Conrado Shearer Confirmed 12/04/2024 11:13 us Tigist RUSSELL US ORDERABLES Final Result INTERFACE SYSTEM Refer to clinic/hospital department * MRSA PCR RAPID SCREEN (12/04/2024 8:29 AM CDT) [facility] MRSA PCR RESULT MRSA not detected MRSA not detected 12/04/2024 10:09 AM CDT [facility] Surveillance ANTERIOR NARES SWAB / Unknown Collection / Unknown 12/04/2024 8:29 AM CDT 12/04/2024 8:43 AM CDT Narrative [facility] - 12/04/2024 10:09 AM CDT This assay is used to detect Methicillin-Resistant S. aureus (MRSA) colonization of the nares. PLEASE NOTE: This test has not been approved to monitor effectiveness of MRSA decolonization. Residual DNA may temporarily be present after successful decolonization. This test was performed using an FDA approved screening methodology. Tigist RUSSELL MICROBIOLOGY - GENERAL ORDERABL ES Final Result [facility] CLIA # [id number] [address] [address] [place] [address] * (ABNORMAL) URINALYSIS WITH REFLEX MICROSCOPIC (12/04/2024 8:28 AM CDT) COLOR UA Yellow Pale to Dark Yellow 12/04/2024 8:52 AM CDT [facility] CLARITY UA Cloudy(A) Clear 12/04/2024 8:52 AM T [facility] SPECIFIC GRAVITY UA 1.039(H) 1.003 - 1.035 12/04/2024 8:52 AM CDT [facility] PH UA 6.0 5.0 - 8.0 12/04/2024 8:52 AM T [facility] LEUKOCYTE ESTERASE UA 3+(A) Negative 12/04/2024 8:52 AM CDT [facility] NITRITE UA Negative Negative 12/04/2024 8:52 AM T [facility] PROTEIN UA 3+(A) Negative 12/04/2024 8:52 AM T [facility] GLUCOSE UA 1+(A) Negative 12/04/2024 8:52 AM T [facility] KETONES UA 1+(A) Negative 12/04/2024 8:52 AM T [facility] UROBILINOGEN UA <2.0 <2.0 mg/dL 8:52 AM T [facility] BILIRUBIN UA Negative Negative 12/04/2024 8:52 AM T [facility] BLOOD UA 3+(A) Negative 12/04/2024 8:52 AM T [facility] WBC UA >100(A) 0 - 2 /hpf 12/04/2024 8:52 AM T [facility] RBC UA 51-100(A) 0 - 2 /hpf 12/04/2024 8:52 AM T [facility] BACTERIA UA 2+(A) Negative /hpf 12/04/2024 8:52 AM CDT [facility] EPITHELIAL CELLS, URINE 0-5 0 - 5 /hpf 12/04/2024 8:52 AM CDT [facility] Urine URINE SPECIMEN OBTAINED BY CLEAN CATCH PROCEDURE / Unknown Collection / Unknown 12/04/2024 8:28 AM CDT 12/04/2024 8:44 AM CDT Tigist RUSSELL URINE ORDERABLES Final Result Performing Organization Address [facility] Co de Phone Number [facility] CLIA # [id number] [address] [place] [address] * (ABNORMAL) TROPONIN 6 HR, 5TH GEN (12/04/2024 7:50 AM CDT) Pathologist [facility] [place] TROPONIN T, 6 HR 5TH GEN 3,956(HH) <=15 ng/L 12/04/2024 9:04 AM CDT [facility] DELTA 6HR TROPONIN T % -10 See Interp. % 12/04/2024 9:04 AM CDT [facility] Blood Venipuncture / Unknown 12/04/2024 7:50 AM CDT 12/04/2024 8:23 AM CDT Narrative [facility] - 12/04/2024 9:04 AM CDT Troponin elevated. Delta not changing. Tigist RUSSELL CHEMISTRY ORDERABLES Final Resu lt Performing Organization Address City/[facility]/ZIP Co de Phone Number [facility] CLIA # [id number] [facility] [address] * BLOOD CULTURE (12/04/2024 7:50 AM CDT) Only the most recent of2 resultswithin the time period is included. BLOOD CULTURE No growth 12/09/2024 9:31 AM CDT [facility] Blood (Peripheral) Venipuncture / Unknown 12/04/2024 7:50 AM CDT 12/04/2024 8:20 AM CDT Tigist RUSSELL MICROBIOLOGY - GENERAL ORDERABL ES Final Result Performing Organization Address [facility] Co de Phone Number [facility] CLIA # [id number] [address] [place], [place] [address] * (ABNORMAL) TROPONIN 2 HR, 5TH GEN (12/04/2024 3:33 AM CDT) TROPONIN T, 2 HR 5TH GEN 4,870(HH) <=15 ng/L 12/04/2024 4:55 AM CDT [facility] DELTA 2HR TROPONIN T % 10 See Interp. % 12/04/2024 4:55 AM CDT [facility] Blood Venipuncture / Unknown 12/04/2024 3:33 AM CDT 12/04/2024 3:37 AM CDT Narrative [facility] - 12/04/2024 4:55 AM CDT Troponin elevated. Delta not changing. us Tigist RUSSELL CHEMISTRY ORDERABLES Final Resu lt Performing Organization Address [facility] Co de Phone Number [facility] CLIA # [id number] [address] [facility] [place], [place] [address] * (ABNORMAL) TROPONIN BASELINE, 5TH GEN (12/04/2024 1:57 AM CDT) TROPONIN T, BASELINE 5TH GEN 4,417(HH) <=15 ng/L 12/04/2024 3:01 AM CDT [facility] Blood Venipuncture / Unknown 12/04/2024 1:57 AM CDT 12/04/2024 2:00 AM CDT [facility] - 12/04/2024 3:01 AM CDT Troponin elevated. us Tigist RUSSELL CHEMISTRY ORDERABLES Final Resu lt [facility] CLIA # [id number] [address] [place] [address] * (ABNORMAL) PROCALCITONIN (12/04/2024 1:57 AM CDT) PROCALCITONIN 55.40(H) <=0.08 ng/mL 12/04/2024 2:53 AM CDT [facility] Blood Venipuncture / Unknown 12/04/2024 1:57 AM CDT 12/04/2024 2:00 AM CDT [facility] [place] [facility] - 12/04/2024 2:53 AM CDT The utility [...] 2-4 hours and peaks within 6-24 hours. [employer]LL CHEMISTRY ORDERABLES Final Resu lt Performing Organization Address [facility] Co de Phone Number [facility] CLIA # [id number] [address] [place] [address] * VANCOMYCIN LEVEL RANDOM (12/04/2024 1:57 AM CDT) VANCOMYCIN, RANDOM 19.7 5.0 - 50.0 ug/mL 12/04/2024 6:19 AM CDT [facility] Blood Venipuncture / Unknown 12/04/2024 1:57 AM CDT 12/04/2024 2:00 AM CDT Narrative [facility] - 12/04/2024 6:19 AM CDT Vancomycin Therapeutic Ranges: Vancomycin Trough: 10 - 20 mcg/mL Vancomycin Peak: 25 - 50 mcg/mL Jim Asif MD CHEMISTRY ORDERABL ES Final Result Performing Organization Address [facility] Co de Phone Number [facility] CLIA # [id number] [address] [address] * PROCEDURE PHOTOGRAPHS (12/01/2024 10:48 AM CDT) us Provider Scanning PROCEDURE/MINOR SURGICAL ORDER RANDAL Final Result * TN ANESTHESIA BLOCK PB PLACEHOLDER CHARGE (11/29/2024 8:07 AM CDT) Narrative Jeffry Walker MD - 11/29/2024 8:07 AM CDT Jeffry Walker MD 11/29/2024 8:10 AM LT Interscalene Ultra Sound Guided Start time: 11/29/2024 7:45 AM End time: 11/29/2024 7:48 AM Reason for block: at surgeon's request and primary anesthetic Staffing Performed: Anesthesiologist (/) Authorized by: Jeffry Walker MD Performed by: Jeffry Walker MD Preanesthetic Checklist Completed: patient identified, IV checked, site marked, risks and benefits discussed, surgical consent, monitors and equipment checked, pre-op evaluation and timeout performed Hand hygiene performed prior to procedure Patient was prepped and draped in usual sterile fashion Mask worn Patient position: Sitting Prep: ChloraPrep Patient monitoring: Continuous pulse oximetry, EKG, Non-invasive blood pressure, Heart rate and ETCO2 Block Region: Upper Extremity Block Block Type: Interscalene Laterality: Left Injection technique: Single-shot [place] Identification: ultrasound guided Local injected: Lidocaine 2% and Ropivacaine 0.5% Needle Needle type: Short-bevel Needle gauge: 22 G Needle length: 2 in Needle localization: Ultrasound guidance Nerve Stimulator or Paresthesia Response Motor response or paresthesia obtained mA ms Depth (cm) Sedation Given: Patient Response: Responsive to verbal stimuli Assessment Paresthesia pain: None Slow fractionated injection: yes Narrative Injections made incrementally with aspirations every (mL): 5 Events: easy and well tolerated, Ultrasound image placed permanently in chart and no block events Outcome: Complete Jeffry Walker MD PROCEDURE/MINOR SURGICAL ORDERAB LES Final Result * VERIFICATION BLOOD GROUP (11/29/2024 6:48 AM CDT) [facility] ABO GROUP O 11/29/2024 7:18 AM CDT [facility] RH (D) TYPE Positive 11/29/2024 7:18 AM CDT [facility] Blood Venipuncture / Unknown 11/29/2024 6:48 AM CDT 11/29/2024 6:54 AM CDT us Klarissa Flowers MD BLOOD BANK ORDERABLES Final Re sult [facility] CLIA#[id number] [address] [place] [address], [place] [phone] * (ABNORMAL) PROTIME-INR (11/29/2024 6:47 AM CDT) [facility] PROTIME 15.9(H) 12.7 - 14.9 Seconds 11/29/2024 7:02 AM CDT [facility] INR 1.2 0.8 - 1.2 11/29/2024 7:02 AM CDT [facility] Blood Venipuncture / Unknown 11/29/2024 6:47 AM CDT 11/29/2024 6:50 AM CDT Narrative [facility] - 11/29/2024 7:02 AM CDT Expected Values for INR: DVT/PE Goal INR 2.5; range 2.0 - 3.0 Valve Replacement Tissue Goal INR 2.5; range 2.0 - 3.0 Valve Replacement Mechanical Goal INR 3.0; range 2.5 - 3.5 POST-NJ Goal INR 2.5; range 2.0 - 3.0 or Goal INR 3.0; range 2.5 - 3.5 Atrial Fibrillation Goal INR 2.5; range 2.0 - 3.0 Ischemic Stroke Goal INR 2.5; range 2.0 - 3.0 us Klarissa Flowers MD HEMATOLOGY ORDERABLES Final Re sult [facility] CLIA # [id number] [address] [place] [address] * TYPE AND SCREEN (11/29/2024 6:47 AM CDT) Pathologist [facility] ABO GROUP O 11/29/2024 7:48 AM CDT [facility] RH (D) TYPE Positive 11/29/2024 7:48 AM CDT [facility] ANTIBODY SCREEN Negative 11/29/2024 7:48 AM CDT [facility] Blood Venipuncture / Unknown 11/29/2024 6:47 AM CDT 11/29/2024 6:50 AM CDT us Klarissa Flowers MD BLOOD BANK ORDERABLES Edited R esult - Final [facility] CLIA#[id number] [address] [place] [address], * US DUPLEX PREOP VESS ASSESS LT (11/12/2024 11:13 AM CDT) Anatomical Region Laterality Modality Lower Extremity, Upper Extremity Ultrasound 11/12/2024 10:2 4 AM CDT Narrative 11/15/2024 11:17 AM CDT [facility] [address] [place] [address] Noninvasive Vascular Lab Upper Extremity Evaluation for Hemodialysis Access Patient: Nisa Reane Study ID: US DUPLEX PREOP Gender: M : 1945 Age: 79 Room: Height: 180cm Weight: 104.3kg BSA: 2.31m^2 Pt status: Outpatient Study Date: 11/12/2024 Study Time: 10:24:48 AM BSA: 2.31m^2 Ordering: Klarissa Flowers MD Interpreting:Janell Melgar Tobacco Drier Operator: Melissa Nava RVT Indications: Dx: 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 No evidence of arterial insufficiency, involving the left upper extremity. 2. No evidence of deep or superficial venous thrombosis involving the left lower extremity. 3. See scanned worksheet for mapping measurements. Study data: Upper extremity evaluation for hemodialysis access. Duplex scan and vessel mapping. Height: 180cm. Height: 70.9in. Weight: 104.3kg. Weight: 229.9lb. BMI: 32.2kg/m^2. BSA: 2.31m^2. Location: Vascular laboratory. Patient status: Outpatient. Study status: Routine. Objective: Pre-procedural evaluation for dialysis access surgery. Procedure: A vascular evaluation was performed. Image quality was good. [facility] is accredited with the Intersocietal Commission for the Accreditation of Vascular Laboratories (ICAVL) Prepared and Electronically Authenticated Janell Melgar Confirmed 11/15/2024 11:17 Procedure Note Janell Melgar DO - 11/15/2024 [facility] [address] [place] [address] [place] [address] Noninvasive Vascular Lab Upper Extremity Evaluation for Hemodialysis Access Patient: Nisa Renae Study ID: US DUPLEX PREOP Gender: M : 1945 Age: 79 Room: Height: 180cm Weight: 104.3kg BSA: 2.31m^2 Pt status: Outpatient Study Date: 11/12/2024 Study Time: 10:24:48 AM BSA: 2.31m^2 Ordering: Klarissa Flowers MD Interpreting:Janell Melgar Tobacco Drier Operator: Melissa Nava RVT Indications: Dx: Benign hypertension with ESRD (end-stage renaldisease) ([facility]) [I12.0, N18.6 (ICD-10-CM)] Summary Impression: 1. No evidence of arterial insufficiency, involving the left upperextremity. 2. No evidence of deep or superficial venous thrombosis involving theleft lower extremity. 3. See scanned worksheet for mapping measurements. Study data: Upper extremity evaluation for hemodialysis access.Duplex scan and vessel mapping. Height: 180cm. Height: 70.9in. Weight:104.3kg. Weight: 229.9lb. BMI: 32.2kg/m^2. BSA: 2.31m^2. Location:Vascular laboratory. Patient status: Outpatient. Study status: Routine. Objective: Pre-procedural evaluation for dialysis access surgery. Procedure: A vascular evaluation was performed. Image quality was good. [facility] is accredited withthe Intersocietal Commission for the Accreditation of Vascular Laboratories (ICAVL) Prepared and Electronically Authenticated Janell Melgar Confirmed 11/15/2024 11:17 us Klarissa Flowers MD US ORDERABLES Final Result * TN PROGRAM EVAL IMPLANTABLE IN PERSN DUAL LD PACER (10/26/2024 11:10 AM CDT) Narrative [facility] - 10/26/2024 11:10 AM CDT Kelly Han 10/26/2024 11:10 AM Office Device Check By Vendor Moth Exterminator Date of Procedure: October 25, 2024 Sliver Chopper: [employer] Comments: Office check by [employer] metals sales representative in conjunction w/ EP office visit. Interrogation reviewed by provider. Please see scan for details. 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 Interrogation reviewed by provider. Please see scan for details. us Sotero Alejandro MD CARDIAC SERVICES ORDERABLES Final Result [facility] [address] [facility] [place] [address] * (ABNORMAL) MICROALBUMIN/CREATININE RATIO, RANDOM UR (03/29/2024 6:06 PM CDT) Creatinine, Urine 140 20 - 320 mg/dL 03/31/2024 2:38 PM CDT [facility] MICROALBUMIN, URINE 228.5 See Note: mg/dL 03/31/2024 2:38 PM CDT [facility] Comment: Reference Range: Reference Range Not established Verified by repeat analysis. MICROALBUMIN/CREAT RATIO, UR 1632(H) <30 mg/g creat 03/31/2024 2:38 PM CDT [facility] Comment: The ADA defines abnormalities in albumin excretion as follows: Albuminuria Category Result (mg/g creatinine) Normal to Mildly increased <30 Moderately increased 30-299 Severely increased > OR = 300 The ADA recommends that at least two of three specimens collected within a 3-6 month period be abnormal before considering a patient to be within a diagnostic category. Urine URINE SPECIMEN OBTAINED BY CLEAN CATCH PROCEDURE / Unknown Collection / Unknown 03/29/2024 6:06 PM CDT 03/29/2024 6:15 PM CDT Narrative [facility] - 03/31/2024 2:38 PM CDT Performing Organization Information: Site ID: [place] Name: [employer] Address: [address] [place] [address] Director: Tawanda Roca MD Jillian Monge MD URINE ORDERABLES Final Result [facility] * LIPID RFLX (03/29/2024 1:24 AM CDT) [facility] CHOLESTEROL 134 <200 mg/dL 03/29/2024 3:43 AM CDT [facility] TRIGLYCERIDE 70 <150 mg/dL 03/29/2024 3:43 AM CDT [facility] HDL 51 40 - 59 mg/dL 03/29/2024 3:43 AM CDT [facility] LDL CALCULATED 69 <100 mg/dL 03/29/2024 3:43 AM CDT [facility] NON-HDL CHOLESTEROL 83 <130 mg/dL 03/29/2024 3:43 AM CDT [facility] Blood Venipuncture / Unknown 03/29/2024 1:24 AM CDT 03/29/2024 1:52 AM CDT Narrative [facility] - 03/29/2024 3:43 AM CDT TOTAL CHOLESTEROL mg/dL Desirable <200 Borderline high 200-239 High >=240 TRIGLYCERIDES mg/dL Normal <150 Borderline high 150-199 High 200-499 Very high >=500 HDL CHOLESTEROL mg/dL Low <40 Normal 40-59 Desirable >=60 NON HDL CHOLESTEROL mg/dL Optimal <130 Near Optimal 130-159 Borderline High 160-189 Very High >=190 CALCULATED LDL mg/dL LDL <70, OPTIMAL if have Atherosclerotic cardiovascular disease (ASCVD) or intermediate or higher (>7.5%) 10 year risk of ASCVD including most adults with diabetes. LDL <100, Optimal in adult patients with low (<7.5%) 10 year ASCVD risk LDL 100-160, Suboptimal LDL >160, High LDL >190, Very high ATPIII Guidelines Reference Ranges for Lipid Panels (NCEP/AMA) . us Jaciel Kwabena MD CHEMISTRY ORDERABLES Final R esult Performing Organization Address [facility] Co de Phone Number [facility] CLIA # [id number] [address] [id number] * (ABNORMAL) HEMOGLOBIN A1C (03/29/2024 1:24 AM CDT) HEMOGLOBIN A1C 7.1(H) <=5.6 % 03/29/2024 12:00 PM CDT [facility] EST. AVG GLUCOSE, A1C 157 mg/dL 03/29/2024 12:00 PM CDT [facility] Blood Venipuncture / Unknown 03/29/2024 1:24 AM CDT 03/29/2024 1:51 AM CDT Narrative [facility] - 03/29/2024 12:00 PM CDT HGB A1C INTERPRETATION NORMAL: <5.7% PRE-DIABETES: 5.7 - 6.4% DIABETES: 6.5% OR GREATER Jaciel Yuan MD CHEMISTRY ORDERABLES Final R esult Performing Organization Address [facility] de Phone Number [facility] CLIA # [id number] [address] [address] from Last 3 Months or Most Recently Relevant to Health Maintenance Insurance MEDICARE PART A AND B [employer] [facility] RX GAN PLANS (INTERNAL) [facility] [place] [address] [place] [address] [employer] Advance Directives For more information, please contact: [phone] * NO CPR (In Event of Cardiopulmonary Arrest) (Latest Code Status on File) Date Activated Date Inactivated Comments 12/04/2024 1:15 AM 12/12/2024 3:52 AM Question Answer Comments Mechanical Ventilation (for respiratory distress) - Invasive (i.e. intubation): No Mechanical Ventilation (for respiratory distress) - Non-Invasive (i.e. BiPAP, CPAP): Yes * NO CPR (In Event of Cardiopulmonary Arrest) Date Activated Date Inactivated Comments 03/29/2024 3:02 AM 04/06/2024 4:07 PM Question Answer Comments Mechanical Ventilation (for respiratory distress) - Invasive (i.e. intubation): No Mechanical Ventilation (for respiratory distress) - Non-Invasive (i.e. BiPAP, CPAP): Yes Care Teams Desolderer Relationship Specialty Start Date End Date Paula Sandoval MD [address] [place] [address] PCP - General Family Practice 10/18/24
--- OUTSIDE RECORDS SUMMARY | 2024-12-18 16:18 | XMS_ITS ---
Author Organization [facility] Address [address] [place] [address] Phone Care Team Providers Care Tour Leader Name Role Phone Paula Sandoval MD Primary Care Provider [phone] Active Problems Problem Noted Date Diagnosed Date [...] lobe of lung 03/29/2024 Lesion of right [place] kidney 03/29/2024 Acute hypoxic respiratory failure 03/29/2024 Anemia 03/29/2024 Thrombocytopenia 03/29/2024 Impaired mobility 02/02/2021 CLL (chronic lymphocytic leukemia) 02/02/2021 History of COVID-19 02/02/2021 Generalized muscle weakness 01/30/2021 Acute cystitis without hematuria 01/30/2021 Stage 4 chronic kidney disease 11/05/2019 Chronic lymphocytic leukemia 11/05/2019 Current Treatment and Therapy Plans No current plan information found. Past Treatment and Therapy Plans No past plan information found. Lifetime Dose Tracking * Chemical Lifetime Dose Automatic Entry Manual Entr y Effective Dose 6.83 mSv 6.83 mSv 0 mSv Total DLP 466.64 DLP 466.64 DLP 0 DLP CTDIvol Max 14.2 mGy 14.2 mGy 0 mGy CTDIvol Min 14.2 mGy 14.2 mGy 0 mGy
--- OUTSIDE RECORDS SUMMARY | 2024-12-18 16:19 | XMS_ITS | Encounter Summary ---
Author Name [facility] [place] [facility] Address [address] [place] [address] Care Team Providers Care Kennel Keeper Name Role Phone TATO BARRAZA Primary Care [...] PART A Feb 21, 2009 PART A [id number] ANGELLA MARTIN PATIENT MEDICARE (WNR) MEDICARE (M) PART B Feb 21, 2009 PART B [id number] [phone] ANGELLA MARTIN PATIENT MEDICARE (WNR) MEDICARE (M) PART A Feb 21, 2009 PART A [id number] ANGELLA MARTIN PATIENT MEDICARE (WNR) MEDICARE (M) PART B Feb 21, 2009 PART B [id number] [phone] ANGELLA MARTIN PATIENT MEDICARE (WNR) MEDICARE (M) PART A Feb 21, 2009 PART A [id number] [phone] ANGELLA MARTIN PATIENT MEDICARE (WNR) MEDICARE (M) PART B Feb 21, 2009 PART B [id number] ANGELLA MARTIN PATIENT [employer] [place] [employer] PLAN F MEDIC ARE SUPPL EMENT 2013 PLAN F [id number] [phone] ANGELLA MARTIN PATIENT [employer] [place] [employer] MED[place] SUPPLEMEN [place] MEDIC ARE SUPPL EMENT 2013 PLAN F [id number] [phone] ANGELLA MARTIN PATIENT Selected Encounter This section includes the [facility] at [facility] for the [facility]counter. Date/Time Encounter Type Encounter Description Reason Pro vider Source IHE Encounter Template Text not used by [facility]
--- OUTSIDE RECORDS SUMMARY | 2024-12-18 16:19 | XMS_ITS | Encounter Summary ---
Author Organization [facility] Address [address] [place] [address] Care Team Providers Care Weight Training Instructor Name Role Phone Paula Sandoval MD Primary Care Provider [phone] Reason for Visit * Reason Onset Date Comments Question 12/15/2024 Encounter Details Date Type Department Care Team (Late st Contact Info) Description 12/15/2024 Telephone [facility] Vascular Surgery [place] [address] [facility] [address] [place] [address] Klarissa Flowers MD [address] [facility] [address] [place] [address] Question Social History Tobacco Use Types Packs/Day Years [...] encounter Miscellaneous Notes * Telephone Encounter - Betsey Montenegro - 12/15/2024 11:01 AM CDT Spoke with Valente, he denies any signs of steal syndrome. HE states that his only issue is that his arm is numb. Will continue with scheduled appointments on 12/17 and he will call with any changes * Telephone Encounter - Brooke Fischer - 12/15/2024 10:21 AM CDT Pt is worried that his arm is still numb. He would like a call back today. He realizes he has an appt on Friday but is wondering if he should have another US or if anything else needs to be done at the appt. Please give him a call. Chris, Brooke documented in this encounter Plan of Treatment Upcoming Encounters Date Type Department Care Team (Late st Contact Info) Description 12/23/2024 12:00 PM CDT Office Visit [facility] Cancer and Hematology [place] [address] [facility] [address] [place] [address] Umm Dotson, [address] [place] [address] 01/21/2025 11:00 AM CDT Office Visit [facility] Cardiology [facility] [address] [facility] [address] [place] [address] Lyndsey Dorsey, FLAME DEGREASER [address] [facility] [address] [place] [address] documented as of this encounter Visit Diagnoses Not on filedocumented in this encounter Care Teams Weight Training Instructor Relationship Specialty Start Date End Date Paula Sandoval MD [address] [place] [id number] PCP - General Family Practice 10/18/24 documented as of this encounter
--- OUTSIDE RECORDS SUMMARY | 2024-12-18 16:19 | XMS_ITS | Encounter Summary ---
Author Organization [facility] Address [address] [place] [address] Care Team Providers Care Cloth Desizing Range Operator Chief Name Role Phone Paula Sandoval MD Primary Care Provider + [phone] Encounter Details Date Type Department Care Team (Late st Contact Info) Description 12/13/2024 Orders Only [facility] [address] [place] [address] Provider, Abstract NO ADDRESS ON FILE Social History Tobacco Use Types Packs/Day Years [...] on file documented as of this encounter Plan of Treatment Upcoming Encounters Date Type Department Care Team (Late st Contact Info) Description 12/23/2024 12:00 PM CDT Office Visit [facility] Cancer and Hematology [place] [address] [place] [address] Umm Dotson, DO [address] [place] [address] 01/21/2025 11:00 AM CDT Office Visit [facility] Cardiology Heart [facility] [address] [place] [address] Lyndsey Dorsey, ELECTRICIAN SUBSTATION [address] [place] [address] documented as of this encounter Procedures Procedure Name Priority Date/Time Associated Diagnosis Comments COMPREHENSIVE METABOLIC PANEL Routine 12/03/2024 12:41 PM CDT documented in this encounter Results * COMPREHENSIVE METABOLIC PANEL (12/03/2024 12:41 PM CDT) Blood us Abstract Provider CHEMISTRY ORDERABLES Final Res ult documented in this encounter Visit Diagnoses Not on filedocumented in this encounter Care Teams Cloth Desizing Range Operator Chief Relationship Specialty Start Date End Date Paula Sandoval MD [address] [place] [id number] PCP - General Family Practice 10/18/24 documented as of this encounter
--- OUTSIDE RECORDS SUMMARY | 2024-12-18 16:20 | XMS_ITS ---
Author Name [facility], Clinic Address [address] [place] [id number] Phone [phone] Organization [facility] e, NA DOCUMENT DISCLAIMER Multiple document versions may exist, please be sure you review the latest version. The information in the [facility] Continuity of Care Document represents a summary of certain health and medical information. It may not contain the complete medical history for the patient and should be independently verified. The represented time in the document is Eastern Time. PROBLEMS Problem Code Status Onset Date Severe sepsis with septic shock R65.21 Active December 17, 2024 Encounter for immunization Z23 Active O ctober 2023 Secondary hyperparathyroidism of renal origin N25.81 Active April 07, 2024 Coagulation defect, unspecified D68.9 Active April 07, 2024 Iron deficiency anemia, unspecified D50.9 Activ e April 07, 2024 Encounter for screening for respiratory tuberculosis Z 11.1 Active April 07, 2024 Encounter for fitting and ad justment of extracorporeal dialysis catheter Z49.01 Active April 07, 2024 Anaphylactic shock, unspecified, initial encounter T78 .2XXA Active April 07, 2024 Other allergy, initial encounter T78.49XA Active April 07, 2024 Disorder of kidney and ureter, unspecified N28.9 Active April 07, 2024 Thrombocytopenia, unspecified D69.6 Active April 07, 2024 Presence of cardiac pacemaker Z95.0 Active April 07, 2024 Acute respiratory failure with hypoxia J96.01 Ac tive April 07, 2024 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 Ac tive April 07, 2024 Presence of coronary angioplasty implant and graft Z95 .5 Active April 07, 2024 Other acute kidney failure N17.8 Active O ctober 2023 End stage renal disease N18.6 Active Octo nano 2023 Dependence on supplemental oxygen Z99.81 Active April 06, 2024 Dependence on renal dialysis Z99.2 Active April 06, 2024 Personal history of transien t ischemic attack (TIA), and cerebral infarction without residual deficits Z86.73 Active April 06, 2024 Personal history of COVID-19 Z86.16 Active April 06, 2024 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 Active April 06, 2024 Benign prostatic hyperplasia without lower urinary tract symptoms N40.0 April 06, 2024 Other specified disorders of kidney and ureter N28.89 April 06, 2024 Chronic kidney disease, stage 4 (severe) N18.4 April 06, 2024 Heart failure, unspecified I50.9 Active O ctober 2023 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 Active March 232023 Non-ST elevation (NSTEMI) myocardial infarction I21.4 April 06, 2024 Hypertensive heart and chron ic kidney disease with heart failure and stage 1 through stage 4 chronic kidney disease, or unspecified chronic kidney disease I13.0 April 06, 2024 Hyperlipidemia, unspecified E78.5 April 06, 2024 Type 2 diabetes mellitus wit h diabetic chronic kidney disease E11.22 April 06, 2024 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 April 06, 2024 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 April 06 24 ALLERGIES AND ADVERSE REACTIONS Substance Reaction Severity Status levofloxacin Unknown Active metformin Unknown Active IODINATED CONTRAST MEDIA Unknown Act darien allopurinol Unknown Active SOCIAL HISTORY Tobacco Use Status Tobacco Type Unknown if ever consumed tobacco - Caregiver Characteristics No Information Available Characteristics of Home environment No Information Available Gender and Sex Information Gender Identity Sexual Orientation Male Decline to answer MEDICATIONS Prescribed Medications for Dialysis Treatments Medication Instructions Dosage Route Start Date End Date Stat us Epoetin Sarath (Epogen) During Dialysis, 3X Week 5800 units Intravenous - push December 07, 2024 December 06, 2025 Active Heparin Sodium (Porcine) 1,000 Units/mL Catheter Lock Arterial Every Treatment 2000 units Arterial Red Port April 10, 2024 April 07, 2025 Active Heparin Sodium (Porcine) 1,000 Units/mL Catheter Lock Venous Every Treatment 2000 units Venous Blue Port April 10, 2024 April 07, 2025 Active Heparin Sodium (Porcine) 1,000 Units/mL Systemic Bolus, Every Treatment, Total treatment minutes 240 5000 units Intravenous - push May 22, 2024 May 21, 2025 Active Iron Sucrose (Venofer) During Dialysis, 1X Week 50 mg Intravenous - push November 30, 2024 November 29, 2025 Active Vitamin D (Calcitriol) Oral Every Treatment 0.25 mcg Oral December 02, 2024 November 29, 2025 Active Epoetin Sarath (Epogen) During Dialysis, 3X Week 4600 units Intravenous - push November 16, 2024 November 15, 2025 Discontinued Iron Sucrose (Venofer) During Dialysis, 3X Week 100 mg Intravenous - push November 02, 2024 November 23, 2024 Discontinued Home Medications Medication Instructions Dosage Route Start Date End Date Status atorvastatin 80 mg Take by mouth once a day 1 tablet ORAL December 17, 2024 Active carvedilol 3.125 mg Take by mouth once a day as directed 1 tablet ORAL December 17, 2024 Active cholecalciferol (vitamin D3) 50 mcg (2,000 unit) Take by mouth once a day 1 tablet ORAL May 25, 2024 Active diclofenac sodium 1% Apply to affected area four times a day as needed for pain 4 gram TOPICAL April 13, 2024 Active docusate sodium 100 mg Take by mouth twice a day as needed 1 capsule ORAL April 13, 2024 Active finasteride 5 mg Take by mouth once a day 1 tablet ORAL April 13, 2024 Active fluticasone propionate 50 mcg/actuation [place] into both nostrils twice a day 1 spray NASAL April 13, 2024 Active glucosamine-chond roitin 500-400 mg Take by mouth once a day 1/2 capsule ORAL April 13, 2024 Active insulin glargine 100 unit/mL (3 mL) Inject subcutaneously SUBCUTANEOUS October 26, 2024 Active isosorbide mononitrate 120 mg Take by mouth once a day 1 tablet ORAL April 27, 2024 Active Lantus U-100 Insulin 100 unit/mL Inject subcutaneously as directed as needed 45 unit SUBCUTANEOUS August 21, 2024 Active loratadine 10 mg Take by mouth once a day 1 tablet ORAL April 13, 2024 Active nitroglycerin 0.[address] under tongue as needed 1 tablet SUBLINGUAL December 17, 2024 Active pantoprazole 40 mg Take by mouth twice a day 1 tablet ORAL December 11, 2024 Active sevelamer carbonate 800 mg Take by mouth three times a day with meals 1 tablet ORAL April 15, 2024 Active Sevelamer Carbonate Tablet 800 mg Take By Mouth Three times a day With Meals 1 Tablet By Mouth April 15, 2024 June 28, 2025 Active tamsulosin 0.4 mg Take by mouth once a day 2 capsule ORAL August 21, 2024 Active torsemide 100 mg Take by mouth once a day as directed 1 tablet ORAL August 12, 2024 Active furosemide 40 mg Take by mouth twice a day 2 tablet ORAL November 27, 2024 Discontinued VITAL SIGNS Post-Treatment Vital Signs Vital Sign Value Date / Time Blood Pressure-sitting 136/49 mmHg December 16, 2024 11:05 AM Blood Pressure-standing 123/44 mmHg December 16, 2024 11:05 AM Heart Rate 65 beats per minute December 16 11:05 AM Respiratory Rate 16 breaths per minute December 16, 2024 11:05 AM Temperature 97.3 deg. F December 16, 2024 11 :05 AM Weight Vital Sign Value Date / Time Estimated Dry Weight 104.1 kg December 14 11:59 PM Pre-Dialysis 105.70 kg December 16, 2024 11 :05 AM Post-Dialysis 106.00 kg December 16, 2024 11 :05 AM Other Other Value Date / Time Height 177.8 cm April 07, 2024 12:00 AM Body Mass Index 32.86 kg/m2 December 14, 2024 02 :03 PM HEALTH CONCERNS Tuberculosis Testing TST Date Administered TST Date Read TST Result 08/31/2024 09/02/2024 Negative (<5) mm LAB RESULTS Hematology Result Type Result Value Relevant Referen ce Range Interpretation Date WBC (No Diff) 40.04 1000/mcL 4.80 - 10.80 1000/mcL High June 24, 2024 UIBC/TIBC 182 mcg/dL 155 - 355 mcg/dL - June 24, 2024 Atypical Lymphs 8 % 0 - 4 % High June Neutrophils 4 % 40 - 75 % Low June 24 025 Bands 1 % 0 - 4 % - June 24 Platelets 71 1000/mcL 130 - 400 1000/mcL Low Janua ry 2024 Transferrin Sat. (Calc) 30 % 20 - 55 % - June 24, 2024 TIBC (Calc) 261 mcg/dL 185 - 515 mcg/dL - June 24, 2024 WBC (No Diff) 45.72 1000/mcL 4.80 - 10.80 1000/mcL High July 29, 2024 Platelets 73 1000/mcL 130 - 400 1000/mcL Low Febru [id number] Neutrophils 4.8 % 40.0 - 75.0 % Low July TIBC (Calc) 239 mcg/dL 185 - 515 mcg/dL - [id number] Transferrin Sat. (Calc) 35 % 20 - 55 % - July 29 UIBC/TIBC 155 mcg/dL 155 - 355 mcg/dL - July 29, 2024 Folate, Serum > 24.0 ng/mL No Reference Ran ge Provided - August 26, 2024 Ferritin 197 ng/mL 22 - 322 ng/mL - August 26, 2024 Neutrophils 4.5 % 40.0 - 75.0 % Low August 26, 2024 WBC (No Diff) 57.11 1000/mcL 4.80 - 10.80 1000/mcL High August 26, 2024 Platelets 80 1000/mcL 130 - 400 1000/mcL Low August 26, 2024 Transferrin Sat. (Calc) 33 % 20 - 55 % - August 26, 2024 TIBC (Calc) 253 mcg/dL 185 - 515 mcg/dL - August UIBC/TIBC 169 mcg/dL 155 - 355 mcg/dL - August Lymphocytes 73 % 19 - 48 % High September 23 Eosinophil 1 % 0 - 7 % - September 23, 2024 Atypical Lymphs 7 % 0 - 4 % High September 23, 2024 Blast Cells 11 % 0 - 0 % High September 23 Neutrophils 4 % 40 - 75 % Low September 23 5 Monocytes 3 % 3 - 10 % - September 23, 2024 MCH 31.8 pg 27.0 - 31.0 pg High September 23, 2024 WBC (No Diff) 30.36 1000/mcL 4.80 - 10.80 1000/mcL High September 23, 2024 Transferrin Sat. (Calc) 36 % 20 - 55 % - September 23, 2024 UIBC/TIBC 139 mcg/dL 155 - 355 mcg/dL Low September TIBC (Calc) 216 mcg/dL 185 - 515 mcg/dL - September Iron 77 mcg/dL 45 - 160 mcg/dL - September 23, 2024 MCHC 32.8 g/dL 30.0 - 36.0 g/dL - September RDW 16.1 % 11.5 - 14.5 % High September 23, 025 Platelets 40 1000/mcL 130 - 400 1000/mcL Low September 23, 2024 Hemoglobin x 3 31.8 % 42.0 - 54.0 % Low September Bands 1 % 0 - 4 % - September 23, 2024 Hemoglobin x 3 30.3 % 42.0 - 54.0 % Low September 212024 Hemoglobin x 3 28.5 % 42.0 - 54.0 % Low October 21, 2024 Monocytes 2 % 3 - 10 % Low October 28, 2024 Lymphocytes 71 % 19 - 48 % High October 28, 2024 Atypical Lymphs 8 % 0 - 4 % High October 28 Bands 2 % 0 - 4 % - October 28, 2024 WBC (No Diff) 74.45 1000/mcL 4.80 - 10.80 1000/mcL High October 28, 2024 Blast Cells 14 % 0 - 0 % High October 28, 2024 Neutrophils 3 % 40 - 75 % Low October 28, 2024 MCH 32.4 pg 27.0 - 31.0 pg High October 28 RDW 16.4 % 11.5 - 14.5 % High October 28 MCHC 32.7 g/dL 30.0 - 36.0 g/dL - October 28, 2024 UIBC/TIBC 197 mcg/dL 155 - 355 mcg/dL - October 28, 2024 Iron 62 mcg/dL 45 - 160 mcg/dL - October 28 Transferrin Sat. (Calc) 24 % 20 - 55 % - October 28, 2024 Platelets 115 1000/mcL 130 - 400 1000/mcL Low October 28, 2024 Hemoglobin x 3 29.1 % 42.0 - 54.0 % Low October 28, 2024 TIBC (Calc) 259 mcg/dL 185 - 515 mcg/dL - October 28, 2024 Hemoglobin x 3 27.3 % 42.0 - 54.0 % Low November 04, 2024 Hemoglobin x 3 27.6 % 42.0 - 54.0 % Low November 11, 2024 Hemoglobin x 3 29.1 % 42.0 - 54.0 % Low November 18, 2024 HGB 9.7 g/dL 14.0 - 18.0 g/dL Low November 18, 2024 Iron 109 mcg/dL 45 - 160 mcg/dL - November 25, 2024 UIBC/TIBC 113 mcg/dL 155 - 355 mcg/dL Low November 25, 2024 TIBC (Calc) 222 mcg/dL 185 - 515 mcg/dL - November Transferrin Sat. (Calc) 49 % 20 - 55 % - November 25, 2024 Ferritin 582 ng/mL 22 - 322 ng/mL High November 25 Hemoglobin x 3 31.5 % 42.0 - 54.0 % Low November Platelets 108 1000/mcL 130 - 400 1000/mcL Low November 25, 2024 RDW 17.4 % 11.5 - 14.5 % High November 25 HGB 10.5 g/dL 14.0 - 18.0 g/dL Low November 25, 2024 MCH 31.6 pg 27.0 - 31.0 pg High November 25 MCHC 31.8 g/dL 30.0 - 36.0 g/dL - November 25, 2024 6.8 % 0.0 - 4.0 % High November 25, 2024 WBC (No Diff) 49.30 1000/mcL 4.80 - 10.80 1000/mcL High November 25, 2024 Eosinophil 0.8 % 0.0 - 7.0 % - November 25, 2024 Basophils 0.6 % 0.0 - 1.5 % - November 25, 2024 Lymphocytes 86.8 % 19.0 - 48.0 % High November 25 Monocytes 0.1 % 3.0 - 10.0 % Low November 25 Neutrophils 4.8 % 40.0 - 75.0 % Low November 25 RBC 3.31 mill/mcL 4.70 - 6.10 mill/mcL Low November 25, 2024 HCT 33.0 % 42.0 - 52.0 % Low November 25 HGB 9.4 g/dL 14.0 - 18.0 g/dL Low December 02, 2024 Ferritin 516 ng/mL 22 - 322 ng/mL High December 02 Hemoglobin x 3 28.2 % 42.0 - 54.0 % Low November HGB 6.9 g/dL 14.0 - 18.0 g/dL Critically low December 14, 2024 Hemoglobin x 3 20.7 % 42.0 - 54.0 % Low November Metabolic/Renal Result Type Result Value Relevant Reference Range Interpre tation Date Hemoglobin A1c 7.5 % 4.8 - 5.9 % High August 26, 2024 Vitamin B12 493 pg/mL 211 - 911 pg/mL - August URR, Calc 72 % 65 - 80 % - September 23, 2024 BUN, Post 19 mg/dL 6 - 19 mg/dL - September 23 BUN/Creat Ratio 13.4 10.0 - 20.0 - September Sodium 137 mEq/L 136 - 145 mEq/L - September 23, 2024 BUN 69 mg/dL 6 - 19 mg/dL High September 23 Creatinine, Serum 5.14 mg/dL 0.60 - 1.30 mg/dL High September 23, 2024 Potassium 4.5 mEq/L 3.5 - 5.1 mEq/L - September 23, 2024 Chloride 100 mEq/L 96 - 108 mEq/L - September 23, 2024 Bicarbonate 28 mEq/L 22 - 29 mEq/L - September 23, 2024 URR, Calc 76 % 65 - 80 % - October 28, 2024 BUN, Post 12 mg/dL 6 - 19 mg/dL - October 28, 2024 Bicarbonate 28 mEq/L 22 - 29 mEq/L - October 28 Chloride 100 mEq/L 96 - 108 mEq/L - October 28 BUN/Creat Ratio 11.6 10.0 - 20.0 - October 28, 2024 Creatinine, Serum 4.30 mg/dL 0.60 - 1.30 mg/dL High October 28, 2024 Potassium 4.8 mEq/L 3.5 - 5.1 mEq/L - October 28, Sodium 136 mEq/L 136 - 145 mEq/L - October 28, 025 BUN 50 mg/dL 6 - 19 mg/dL High October 28, 2024 BUN, Post 10 mg/dL 6 - 19 mg/dL - November 25 BUN 41 mg/dL 6 - 19 mg/dL High November 25 Creatinine, Serum 4.18 mg/dL 0.60 - 1.30 mg/dL High November 25, 2024 URR, Calc 76 % 65 - 80 % - November 25, 2024 BUN/Creat Ratio 9.8 10.0 - 20.0 Low November 25, 2024 Sodium 141 mEq/L 136 - 145 mEq/L - November 25, 2024 Potassium 4.4 mEq/L 3.5 - 5.1 mEq/L - November 25, 2024 Chloride 102 mEq/L 96 - 108 mEq/L - November 25, 2 025 Bicarbonate 25 mEq/L 22 - 29 mEq/L - November 25, 2 025 Hemoglobin A1c 7.1 % 4.8 - 5.9 % High November 25, 2024 HD Adequacy Result Type Result Value Relevant Referen ce Range Interpretation Date Krt/V 0.49 No Reference Ran ge Provided - June 24, 2024 Krt/V 0.49 No Reference Ran ge Provided - July 29, 2024 Krt/V 0.51 No Reference Ran ge Provided - August 26, 2024 spKt/V Gotch 1.45 No Reference Ran ge Provided - September 23, 2024 spKt/V (Daugirdas II) 1.43 No Reference Range Provided - September 23, 2024 Krt/V 0.00 No Reference Ran ge Provided - September 23, 2024 wstdKt/V without residual 1.6 No Reference Range Provided - September 23, 2024 wstdKt/V 1.6 No Reference Ran ge Provided - September 23, 2024 wstdKt/V, residual 0.0 No Reference Range Provided - September 23, 2024 eKt/V ([place]) 1.25 No Reference Range Provided - September 23, 2024 Krt/V 0.00 No Reference Ran ge Provided - October 28, 2024 eKt/V ([place]) 1.41 No Reference Range Provided - October 28, 2024 wstdKt/V 2.5 No Reference Ran ge Provided - October 28, 2024 wstdKt/V, residual 0.0 No Reference Range Provided - October 28, 2024 wstdKt/V without residual 2.5 No Reference Range Provided - October 28, 2024 spKt/V Gotch 1.65 No Reference Ran ge Provided - October 28, 2024 spKt/V (Daugirdas II) 1.62 No Reference Range Provided - October 28, 2024 spKt/V (Daugirdas II) 1.56 No Reference Range Provided - November 25, 2024 spKt/V Gotch 1.56 No Reference Ran ge Provided - November 25, 2024 eKt/V ([place]) 1.36 No Reference Range Provided - November 25, 2024 Krt/V 0.00 No Reference Ran ge Provided - November 25, 2024 wstdKt/V, residual 0.0 No Reference Range Provided - November 25, 2024 wstdKt/V without residual 2.5 No Reference Range Provided - November 25, 2024 wstdKt/V 2.5 No Reference Ran ge Provided - November 25, 2024 Bone/Mineral Result Type Result Value Relevant Referen ce Range Interpretation Date Magnesium 1.9 mg/dL 1.6 - 2.6 mg/dL - May 27, 2024 Vitamin D 25 Hydroxy 55.1 ng/mL 30 - 100 ng/mL - August 26, 2024 Magnesium 2.1 mg/dL 1.6 - 2.6 mg/dL - August 26, 2024 PTH-Intact, Plasma 275 pg/mL 16 - 80 pg/mL High Aug Vitamin D 1,25 Dihydroxy 34.3 pg/mL 19.9 - 79.3 pg/mL - August 26, 2024 Corrected Ca x P Product 22 0 - September 23, 2024 Ca x P Product 21 0 - September 23, 2024 Calcium, Total 8.9 mg/dL 8.4 - 10.2 mg/dL - 2024 Phosphorus 2.4 mg/dL 2.6 - 4.5 mg/dL Low September 23, 2024 Corrected Ca x P Product 46 0 - - October 28, 2024 Ca x P Product 45 0 - 54 - October 28, 20 25 Phosphorus 5.1 mg/dL 2.6 - 4.5 mg/dL High October 28, 025 Calcium, Total 8.9 mg/dL 8.4 - 10.2 mg/dL - October 28, 2024 Corrected Ca x P Product 42 0 - - November 25, 2024 Magnesium 2.3 mg/dL 1.6 - 2.6 mg/dL - November 25, 2024 Calcium, Total 8.6 mg/dL 8.4 - 10.2 mg/dL - November 25, 2024 Phosphorus 4.8 mg/dL 2.6 - 4.5 mg/dL High November 25, 2024 Ca x P Product 41 0 - 54 - November 25, 2 025 Alkaline Phosphatase 103 U/L 40 - 129 U/L - Ju ne 2024 PTH-Intact, Plasma 432 pg/mL 16 - 80 pg/mL High Nov Liver/Nutrition Result Type Result Value Relevant Reference Range Interpre tation Date Glucose 308 mg/dL 70 - 100 mg/dL High September 23, 2024 A/G Ratio 1.6 1.0 - 2.0 - September 23, 2024 Globulin (Calc) 2.2 g/dL 2.0 - 4.0 g/dL - September 23, 2024 Albumin (BCG) 3.6 g/dL 3.5 - 5.2 g/dL - September Total Protein 5.8 g/dL 6.0 - 8.5 g/dL Low September eNPCR 1.04 No Reference Ran ge Provided - September 23, 2024 eNPCR 0.86 No Reference Ran ge Provided - October 28, 2024 A/G Ratio 1.8 1.0 - 2.0 - October 28, 2024 Globulin (Calc) 2.2 g/dL 2.0 - 4.0 g/dL - October Albumin (BCG) 3.9 g/dL 3.5 - 5.2 g/dL - October 28, 2024 Total Protein 6.1 g/dL 6.0 - 8.5 g/dL - October 28, 2024 Glucose 136 mg/dL 70 - 100 mg/dL High October 28 Globulin (Calc) 2.2 g/dL 2.0 - 4.0 g/dL - November 25, 2024 A/G Ratio 1.8 1.0 - 2.0 - November 25, 2024 Glucose 209 mg/dL 70 - 100 mg/dL High November 25, 025 eNPCR 0.71 No Reference Ran ge Provided - November 25, 2024 Total Protein 6.1 g/dL 6.0 - 8.5 g/dL - November Albumin (BCG) 3.9 g/dL 3.5 - 5.2 g/dL - November Lipid Result Type Result Value Relevant Referen ce Range Interpretation Date LDL, (Calculated) 32 mg/dL 0 - 99 mg/dL - August 26, 2024 VLDL (Calculated) 35 mg/dL 10 - 30 mg/dL [facility] 2024 Cholesterol HDL Ratio 2.8 0.0 - 4.5 - Aug Cholesterol, Total 104 mg/dL 0 - 199 mg/dL - Aug HDL 37 mg/dL No Reference Ran ge Provided - August 26, 2024 Triglycerides 174 mg/dL 0 - 149 mg/dL High August Immunochemistry Result Type Result Value Relevant Reference Range Interpre tation Date HCV s/co ratio 0.11 0.00 - 0.79 - March 232023 HCV s/co ratio 0.08 0.00 - 0.79 - August 26, 2024 Trace Elements Result Type Result Value Relevant Reference Range Interpre tation Date Aluminum < 5 mcg/L 0 - 10 mcg/L - April 08, 2024 Aluminum < 5 mcg/L 0 - 10 mcg/L - August 26 Peritoneal Dialysis Testing Result Type Result Value Relevant Referen ce Range Interpretation Date Total Urea Nitrogen, Urine 3.0 g/24 hr 12.0 - 20.0 g/24 hr Low April 20, 2024 Urea Clearance, Urine 4.6 mL/min 64.0 - 99.0 mL/min Low April 20 024 Creatinine, Urine 85.2 mg/dL No Reference R rivear Provided - April 20, 2024 Total Creatinine, Urine 1.0 g/24 hr 0.7 - 1.8 g/24 hr - April 20 Infectious Diseases Result Type Result Value Relevant Referen ce Range Interpretation Date HCV Ab (anti-HCV) Nonreactive No Reference R rivera Provided - August 26, 2024 Hep B core Ab Total (anti-HBc) Negative No Reference Range Provided - September 02, 2024 Hep B Surface Ab (anti-HBs) < 10 mIU/mL No Reference Range Provided - October 28, 2024 Hep B Surface Ag (HBsAg) Negative No Reference Range Provided - November 25, 2024 DIALYSIS PRESCRIPTION Conventional Hemodialysis Data Element Value Order Date/Time December 14, 2024 Frequency 3X Week Treatment Days TueThuSat Dialyzer [id number] Optiflux Treatment Time (Total Minutes) 240 min Blood Flow Rate (mL/min) 450 mL/min Dialysate Flow Rate Manual 800 Estimated Dry Weight 104.1 kg Dialysate Concentrate 3.0 K, 2.5 Ca, 1.0 Mg, 100 Dextrose (N3251) Sodium (mEq/L) 138 mEq/L Bicarb Machine Setting (mEq/L) 32 mEq/L IMMUNIZATIONS Vaccine Date Dose Route Status HEPLISAV-B, Series 4 of August 26, 2024 20.0 mcg Intram uscular Completed HEPLISAV-B, Series 1 of April 29, 2024 20.0 mcg Int ramuscular Completed TRANSPLANT WAITLIST STATUS No Information on Transplant Waitlist Status ADVANCE DIRECTIVES Directive Description Ordered By Effective Date Resuscitation status Do Not Resuscitate (DNR) [place] Apr 09, 2024 DIALYSIS TREATMENTS Conventional Hemodialysis Date Pre-Treatment Vitals Post-Treatment Malissa ls Duration (hr) BFR (mL/min) Dialysate Dialyzer Dialysis Access Meds Admin December 02, 2024 Weight 104.90 kg Weight 104.10 kg 04:00:00 460 3.0 K, 2.5 Ca, 1.0 Mg, 100 Dextrose (N3251) 180nre Optifl ux Blood Pressure-sitting 112/57 mmHg Blood Pressure-sit ting 127/60 mmHg Heart Rate 93 beats per minute Blood Pressure-standi ng 148/61 mmHg Respiratory Rate 18 breaths per minute Heart Rate 98 beats per minute Temperature 98.2 deg. F Respiratory Rate 16 breaths per minute - - Temperature 97.4 deg. F December 14, 2024 Weight 106.60 kg Weight 103.90 kg 04:00:00 460 3.0 K, 2.5 Ca, 1.0 Mg, 100 Dextrose (N3251) 180nre Optiflux Hemodialysis-CV Catheter-Tunneled, Chest, Right Jugular Access Placed on April 01, 2024 Epoetin Sarath (Epogen); 5800units,Intravenous - push Heparin Sodium (Porcine) 1,000 Units/mL Catheter Lock Arterial; 2000units,Arterial [place] Heparin Sodium (Porcine) 1,000 Units/mL Catheter Lock Venous; 2000units,Venous [place] Heparin Sodium (Porcine) 1,000 Units/mL Systemic; 5000units,Intravenous - push Iron Sucrose (Venofer); 50mg,Intravenous - push Vitamin D (Calcitriol) Oral; 0.25mcg,Oral Blood Pressure-sitting 120/53 mmHg Blood Pressure-sit ting 133/52 mmHg Heart Rate 64 beats per minute Heart Rate 64 beats per minute Respiratory Rate 16 breaths per minute Respiratory Rate 16 breaths per minute Temperature 97.5 deg. F Temperature 97.4 deg. F December 16, 2024 Weight 105.70 kg Weight 106.00 kg 04:01:00 460 3.0 K, 2.5 Ca, 1.0 Mg, 100 Dextrose (N3251) 180nre Optiflux Hemodialysis-CV Catheter-Tunneled, Chest, Right Jugular Access Placed on April 01, 2024 Epoetin Sarath (Epogen); 5800units,Intravenous - push Heparin Sodium (Porcine) 1,000 Units/mL Catheter Lock Arterial; 2000units,Arterial [place] Heparin Sodium (Porcine) 1,000 Units/mL Catheter Lock Venous; 2000units,Venous [place] Heparin Sodium (Porcine) 1,000 Units/mL Systemic; 5000units,Intravenous - push Vitamin D (Calcitriol) Oral; 0.25mcg,Oral Blood Pressure-sitting 114/51 mmHg Blood Pressure-sit ting 136/49 mmHg Heart Rate 65 beats per minute Blood Pressure-standi ng 123/44 mmHg Respiratory Rate 16 breaths per minute Heart Rate 65 beats per minute Temperature 97.5 deg. F Respiratory Rate 16 breaths per minute - - Temperature 97.3 deg. F
--- OUTSIDE RECORDS SUMMARY | 2024-12-18 16:20 | XMS_ITS | Patient Health Record ---
Author Organization [facility] Address [address] [place] [address] Care Team Providers Care Recruiter Manager Name Role Phone Corrina AGUERO Primary Care Provider UnavailTito Adler Unavailable [phone] Michael Antonio MD Unavailable Unavailable Sally Haney Unavailable [phone] Allergies Allergen (clinical drug ingredient) Drug/Non Drug Allergy documented on EMR Reaction Allergy Type Onset Date Status piperacillin / tazobactam Zosyn Unknown Drug Allergy Active allopurinol Allopurinol Unknown Drug Allergy Act darien metformin Metformin Unknown Drug Allergy Active Reason For Referral No Information Medications Medication SIG (Take, Route, Frequency, Duration) Notes Start Date End Date Status Lantus Active Vitamin D3 50 MCG (1999) 1 capsule Or ally Once a day Active Lokelma 10 GM 1 packet dissolved i n water Orally every other day for 90 days 01/30/2022 Active Furosemide 40 MG 1 tablet Orally Once a day Active Osteo Bi-Flex One Per Day - as directed Orally Active Isosorbide Mononitrate ER 60 MG 1 tablet Oral in the am for 90 Active Tamsulosin HCl 0.4 MG 2 capsules Oral da benedicto for 30 Active Metoprolol Tartrate 100 MG 1 tablet with food Orally Twice a day Active NIFEdipine ER 60 MG 1 tablet on an empty stomach Orally Once a day for 90 days 07/20/2021 Active Loratadine 10 MG 1 tablet Orally Once a day Active Magnesium Oxide 400 MG 1 tablet with kvng d Orally Once a day Active Nitroglycerin 0.4 MG as directed Sublingual Active Atorvastatin Calcium 10 MG TAKE 1 TABLET BY MOUTH ONCE DAILY Oral for 90 Active NovoLIN R Active Fluticasone Propionate 50 MCG/ACT 2spray in each nostril Nasally Twice a day Active [place] 3 1000 MG 1 capsule Orally twi ce daily Active Clopidogrel Bisulfate 75 MG TAKE 1 TABLE T BY MOUTH ONCE DAILY Oral for 90 Active Diclofenac Sodium 1 % as directed Externally Active Social History Tobacco Use: Social History Observation Description Date Details (start date - stop date) Never Smoker NA - NA xTobacco Use/Smoking Question Answer Notes Are you a nonsmoker Problems Problem Type SNOMED Code ICD Code Onset Dates Problem Status W/U Status Risk Notes Problem 079215314 Anemia in neopla stic disease (D63.0) Active confirmed Problem 943690876 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) Active confirmed Problem 734501740 Type 2 diabetes mellitus without complications (E11.9) Active confirmed Problem [id number] Hypertensive chr onic kidney disease with stage 1 through stage 4 chronic kidney disease, or unspecified chronic kidney disease (I12.9) Active confirmed Problem Chronic kidney disease stage 4 (936592098) Chronic kidney disease, stage 4 (severe) (N18.4) Active confirmed Problem 74909952 Secondary hyperparathyroidism of renal origin (N25.81) Active confirmed Problem Essential hypertension (20515444) HTN (hypertension), benign (I10) Active confirmed Problem Chronic kidney disease stage 4 (955672358) CKD (chronic kidney disease), stage IV (N18.4) Active confirmed Problem Hyperparathyroidism (50548167) Hyperparathyroidism (E21.3) Active confirmed Problem 60815125 Hypertension, be nign (I10) Active confirmed Problem Chronic lymphoid leukemia, disease (33796677) CLL (chronic lymphocytic leukemia) (C91.10) Active confirmed Problem Chronic kidney disease stage 4 (857431841) Chronic kidney disease, stage IV (severe) (N18.4) Active confirmed Problem 504609414 BPH NOS w ur obs/LUTS (N40.1) Active confirmed Problem 949411782870495 Chronic kidney disease, stage 3a (N18.31) Active confirmed Vital Signs Heart Rate 95 /min 2024 Temperature 98.2 degrees Fahrenheit 2024 Blood pressure diastolic 69 mm Hg 2024 Oximetry 98 % 2024 Height-cm 180.34 cm 2024 Weight-kg 110.5 kg 2024 Height 71 in 2024 Blood pressure systolic 152 mm Hg 2024 Weight 243.61 lbs 2024 BMI 33.97 kg/m2 2024 Encounters Encounter Location Date Provider Diagnosis [facility] [address] [place] [address] 01/08/2024 Sally Haney [facility] [address] [place] [address] 02/03/2024 Sally Haney Hypertensive chronic kidney disease with stage 1 through stage 4 chronic kidney disease, or unspecified chronic kidney disease I12.9 ; Chronic kidney disease, stage IV (severe) N18.4 ; 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 ; Non-nephrotic range proteinuria R80.9 ; Asymptomatic hyperuricemia E79.0 and Secondary hyperparathyroidism of renal origin N25.81 [facility] [address] [place] [address] 03/09/2024 Tito [facility] [address] [place] [address] 07/16/2024 Tito Leone [facility] [address] [place] [address] 07/19/2024 [facility] [address] [place] [address] 2024 Tito Leone Chronic kidney disea se, stage IV (severe) N18.4 ; Hypertensive chronic kidney disease with stage 1 through stage 4 chronic kidney disease, or unspecified chronic kidney disease I12.9 ; HTN (hypertension), benign I10 ; Bilateral leg edema R60.0 ; Secondary hyperparathyroidism of renal origin N25.81 ; Hyperkalemia E87.5 ; 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 ; CLL (chronic lymphocytic leukemia) C91.10 ; Nephrotic range proteinuria R80.9 ; Microscopic hematuria R31.29 ; Asymptomatic hyperuricemia E79.0 ; Pharmacologic therapy Z79.899 ; Type 2 diabetes mellitus without complications E11.9 and Former smoker Z87.891 Assessments Encounter Date Diagnosis (ICD Code) Assessment Notes Treatment Notes Treatment Clinical Notes Section Notes 02/03/2024 Hypertensive chronic kidney disease with stage 1 through stage 4 chronic kidney disease, or unspecified chronic kidney disease (ICD-10 - I12.9) 2024 Hypertensive chronic kidney disease with stage 1 through stage 4 chronic kidney disease, or unspecified chronic kidney disease (ICD-10 - I12.9) CKD is stable. HTN is controlled. Hyperkalemia is controlled. Edema is worse, likely secondary to steroids. SHPTH is at goal. Anemia is at goal and is secondary to CKD and CLL, which is being managed by oncology. Proteinuria has progressed and is now nephortic. Microscopic hematuria is recurrent, possibly due to zanubrutinib and Plavix. Hyperuricemia is asymptomatic. 2024 Chronic kidney disease, stage IV (severe) (ICD-10 - N18.4) CKD is stable. HTN is controlled. Hyperkalemia is controlled. Edema is worse, likely secondary to steroids. SHPTH is at goal. Anemia is at goal and is secondary to CKD and CLL, which is being managed by oncology. Proteinuria has progressed and is now nephortic. Microscopic hematuria is recurrent, possibly due to zanubrutinib and Plavix. Hyperuricemia is asymptomatic. 2024 HTN (hypertension), benign (ICD-10 - I10) CKD is stable. HTN is controlled. Hyperkalemia is controlled. Edema is worse, likely secondary to steroids. SHPTH is at goal. Anemia is at goal and is secondary to CKD and CLL, which is being managed by oncology. Proteinuria has progressed and is now nephortic. Microscopic hematuria is recurrent, possibly due to zanubrutinib and Plavix. Hyperuricemia is asymptomatic. 02/03/2024 Chronic kidney disease, stage IV (severe) (ICD-10 - N18.4) 02/03/2024 Anemia in neoplastic disease (ICD-10 - D63.0) 2024 Bilateral leg edema (ICD-10 - R60.0) CKD is stable. HTN is controlled. Hyperkalemia is controlled. Edema is worse, likely secondary to steroids. SHPTH is at goal. Anemia is at goal and is secondary to CKD and CLL, which is being managed by oncology. Proteinuria has progressed and is now nephortic. Microscopic hematuria is recurrent, possibly due to zanubrutinib and Plavix. Hyperuricemia is asymptomatic. 2024 Secondary hyperparathyroidism of renal origin (ICD-10 - N25.81) CKD is stable. HTN is controlled. Hyperkalemia is controlled. Edema is worse, likely secondary to steroids. SHPTH is at goal. Anemia is at goal and is secondary to CKD and CLL, which is being managed by oncology. Proteinuria has progressed and is now nephortic. Microscopic hematuria is recurrent, possibly due to zanubrutinib and Plavix. Hyperuricemia is asymptomatic. 02/03/2024 Non-nephrotic range proteinuria (ICD-10 - R80.9) 02/03/2024 Asymptomatic hyperuricemia (ICD-10 - E79.0) 2024 Hyperkalemia (ICD-10 - E87.5) CKD is stable. HTN is controlled. Hyperkalemia is controlled. Edema is worse, likely secondary to steroids. SHPTH is at goal. Anemia is at goal and is secondary to CKD and CLL, which is being managed by oncology. Proteinuria has progressed and is now nephortic. Microscopic hematuria is recurrent, possibly due to zanubrutinib and Plavix. Hyperuricemia is asymptomatic. 2024 Anemia in neoplastic disease (ICD-10 - D63.0) CKD is stable. HTN is controlled. Hyperkalemia is controlled. Edema is worse, likely secondary to steroids. SHPTH is at goal. Anemia is at goal and is secondary to CKD and CLL, which is being managed by oncology. Proteinuria has progressed and is now nephortic. Microscopic hematuria is recurrent, possibly due to zanubrutinib and Plavix. Hyperuricemia is asymptomatic. 02/03/2024 Secondary hyperparathyroidism of renal origin (ICD-10 - N25.81) 2024 CLL (chronic lymphocytic leukemia) (ICD-10 - C91.10) CKD is stable. HTN is controlled. Hyperkalemia is controlled. Edema is worse, likely secondary to steroids. SHPTH is at goal. Anemia is at goal and is secondary to CKD and CLL, which is being managed by oncology. Proteinuria has progressed and is now nephortic. Microscopic hematuria is recurrent, possibly due to zanubrutinib and Plavix. Hyperuricemia is asymptomatic. 2024 Nephrotic range proteinuria (ICD-10 - R80.9) CKD is stable. HTN is controlled. Hyperkalemia is controlled. Edema is worse, likely secondary to steroids. SHPTH is at goal. Anemia is at goal and is secondary to CKD and CLL, which is being managed by oncology. Proteinuria has progressed and is now nephortic. Microscopic hematuria is recurrent, possibly due to zanubrutinib and Plavix. Hyperuricemia is asymptomatic. 2024 Microscopic hematuria (ICD-10 - R31.29) CKD is stable. HTN is controlled. Hyperkalemia is controlled. Edema is worse, likely secondary to steroids. SHPTH is at goal. Anemia is at goal and is secondary to CKD and CLL, which is being managed by oncology. Proteinuria has progressed and is now nephortic. Microscopic hematuria is recurrent, possibly due to zanubrutinib and Plavix. Hyperuricemia is asymptomatic. 2024 Asymptomatic hyperuricemia (ICD-10 - E79.0) CKD is stable. HTN is controlled. Hyperkalemia is controlled. Edema is worse, likely secondary to steroids. SHPTH is at goal. Anemia is at goal and is secondary to CKD and CLL, which is being managed by oncology. Proteinuria has progressed and is now nephortic. Microscopic hematuria is recurrent, possibly due to zanubrutinib and Plavix. Hyperuricemia is asymptomatic. 2024 Pharmacologic therapy (ICD-10 - Z79.899) CKD is stable. HTN is controlled. Hyperkalemia is controlled. Edema is worse, likely secondary to steroids. SHPTH is at goal. Anemia is at goal and is secondary to CKD and CLL, which is being managed by oncology. Proteinuria has progressed and is now nephortic. Microscopic hematuria is recurrent, possibly due to zanubrutinib and Plavix. Hyperuricemia is asymptomatic. 2024 Type 2 diabetes mellitus without complications (ICD-10 - E11.9) CKD is stable. HTN is controlled. Hyperkalemia is controlled. Edema is worse, likely secondary to steroids. SHPTH is at goal. Anemia is at goal and is secondary to CKD and CLL, which is being managed by oncology. Proteinuria has progressed and is now nephortic. Microscopic hematuria is recurrent, possibly due to zanubrutinib and Plavix. Hyperuricemia is asymptomatic. 2024 Former smoker (ICD-10 - Z87.891) CKD is stable . HTN is controlled. Hyperkalemia is controlled. Edema is worse, likely secondary to steroids. SHPTH is at goal. Anemia is at goal and is secondary to CKD and CLL, which is being managed by oncology. Proteinuria has progressed and is now nephortic. Microscopic hematuria is recurrent, possibly due to zanubrutinib and Plavix. Hyperuricemia is asymptomatic. 2024 Other Continue current antihypertensives, monitor blood pressure daily with a goal of less than 150/90. Continue furosemide for volume control and elevate legs for 1 hour a day. He was instructed to give me an update on his weights and swelling on Friday. If edema does not improve, then increase Lasix to 40 mg twice daily (morning and early afternoon) and reevaluate. Dose medications for GFR less than 30mL/min. Low sodium diet. Avoid nephrotoxins. Monitor protienuria and check microalbuminuria. Continue finasteride and tamsulosin. Continue Lokelma 10 grams every other day. He is to take Lokelma at least 2 hours before or after Plavix but preferably 2 hours before or after all of his medications. Monitor hyperparathyroidism labs. Monitor uric acid. Defer management of anemia to Dr. Mann/Oncology hematology. Follow up in 3 months with labs at [facility] BMP, mag, uric acid, phos, PTH, hgb, iron studies, UA, urine protein, urine creatinine, urine microalbumin I am the scribe for Dr. Leone and I have documented sections of this chart - Izabel Holder CKD is stable. HTN is controlled. Hyperkalemia is controlled. Edema is worse, likely secondary to steroids. SHPTH is at goal. Anemia is at goal and is secondary to CKD and CLL, which is being managed by oncology. Proteinuria has progressed and is now nephortic. Microscopic hematuria is recurrent, possibly due to zanubrutinib and Plavix. Hyperuricemia is asymptomatic. Plan Of Treatment Pending Test Test Name Order Date Basic Metabolic Panel (BMP) 38569 2023 Hemoglobin 25253 09/30/2023 Magnesium (B) 42301 09/30/2023 Phosphorus (B) 16564 09/30/2023 Protein (U) Random 74340 09/30/2023 Uric Acid (B) 36663 09/30/2023 Creatinine (U) 42783 09/30/2023 UA Reflex Micro, Reflex Cult 76594, 8101 5, 96142 09/30/2023 PTH Intact 35934 09/30/2023 Basic Metabolic Panel (BMP) 80074 2020 Phosphorus (B) 85148 12/07/2020 PTH Intact 51860 12/07/2020 Basic Metabolic Panel (BMP) 27625 2022 Ferritin 34273 06/18/2023 Hemoglobin 20707 06/18/2023 Iron Binding Capacity Total 90463 2022 Iron Level 20222 06/18/2023 Magnesium (B) 35256 06/18/2023 Phosphorus (B) 92979 06/18/2023 Protein (U) Random 14867 06/18/2023 Uric Acid (B) 11184 06/18/2023 Creatinine (U) 17072 06/18/2023 UA Reflex Micro, Reflex Cult 58540, 8101 5, 55378 06/18/2023 PTH Intact 55671 06/18/2023 Albumin 14809 02/03/2024 Basic Metabolic Panel (BMP) 18690 2023 Ferritin 86443 02/03/2024 Hemoglobin 72146 02/03/2024 Iron Binding Capacity Total 37161 2023 Iron Level 54762 02/03/2024 Magnesium (B) 22695 02/03/2024 Phosphorus (B) 73740 02/03/2024 Protein (U) Random 07710 02/03/2024 Uric Acid (B) 64266 02/03/2024 Vitamin D Total (B) 14126 02/03/2024 Creatinine (U) 37184 02/03/2024 UA Reflex Micro, Reflex Cult 74189, 8101 5, 26574 02/03/2024 PTH Intact 89799 02/03/2024 % Iron Saturation (Fe & TIBC)--83937,835 50 02/03/2024 Future Test Test Name Order Date Basic Metabolic Panel (BMP) 05059 2023 CBC w\ Auto Diff 26188 06/17/2024 Ferritin 81436 06/17/2024 Hemoglobin 36022 06/17/2024 Magnesium (B) 88556 06/17/2024 Phosphorus (B) 47851 06/17/2024 Protein (U) Random 75471 06/17/2024 Uric Acid (B) 83241 06/17/2024 Microalbumin (U) Random 71427 06/17/2024 Creatinine (U) 84572 06/17/2024 UA Reflex Micro, Reflex Cult 58853, 8101 5, 43646 06/17/2024 PTH Intact 95987 06/17/2024 % Iron Saturation (Fe & TIBC)--34670,835 50 06/17/2024 Insurance Providers Payer Name Payer Address Payer Phone Subscriber Number Group Number Insured Name Patient Relationship to Insured Coverage Start Date Coverage End Date [employer] [address] [place] [phone] [id number] Valente Renae Self - patient is the insured Medical (General) History Medical History History ICD Code Allergic rhinitis Benign prostatic hyperplasia (BPH) Coronary artery disease Chronic lymphocytic leukemia GERD Hyperlipidemia Hypertension Type II diabetes Diabetic nephropathy hearing loss COVID (12/2020) Stage IV CKD Hyperkalemia Anemia Secondary hyperparathyroidism of renal o rigin Metabolic acidosis Hyperuricemia Surgical History Surgery Date(Month/Year) coronary stents x2 appendectomy 4v-CABG Hospitalization History Reason Date(Month/Year) see surgical
--- OUTSIDE RECORDS SUMMARY | 2024-12-18 16:20 | XMS_ITS | Data Portability ---
Author Organization PETER Hayes [facility], [place], [facility] Address [address] [facility] [address] [place] [address] Assessment Encounter Date Assessment Date Assessment LastModified by Organization Details LastModified Time 03/17/2023 03/17/2023 COVID positive at home. Negative on rapid here today. Due to home positive and sx reported, we will treat for COVID. Will order PCR send out to evaluate further. Will call with send out PCR test results. Increase fluids and rest as needed. May use OTC cough and cold meds as directed on box, vicks, humidifier and nasal saline. Tylenol vs. IBU for pain and discomfort. Discussed quarantine recommendations, as outlined by the CDC (5 days of home quarantine from sx onset and then 5 days with a mask). F/U PRN in walk-in for sx that do not continue to improve or worsen. Patient verbalizes understanding and agreement with this plan of care. Will call with any questions or concerns. [email or web address] Not available 03/17/2023 13:27:18 03/26/2024 03/26/2024 Patient reports when he first started he had been taking Prednisone because of his leukemia treatment. He does not feel like he is systemically ill at this time. He is willing to try the montelukast to see if it clears his cough but will let me know if he is not better early next week. [facility] Not available 03/26/2024 13:02:22 07/03/2024 07/03/2024 Patient reports he has been sick for about a week. He has had a bad cough. He has not had fever. He was not able to have dialysis for the past 2 days because he has not felt well enough to go. He reports he still urinates. Not available 07/03/2024 13:15:22 Plan of Treatment Reminders Order Date Submit Date Provider Last Modified By Organization Details Last Modified Time Details Appointments None recorded. 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 Procedures None recorded. Surgeries None recorded. Imaging None recorded. Medication Orders doxycycline hyclate 100 mg capsule 2024 025 [facility], [address] [place], [address], 5 13:29:23 montelukast 10 mg tablet 2023 024 [facility], [address], [place], [address], 4 13:02:33 ondansetron HCl 4 mg tablet [address] [facility], [address] [place], [address], 4 12:17:46 Paxlovid 300 mg (150 mg x 2)-100 mg tablets in a dose pack [address] [facility], [address] [place], [address], 12:17:59 Patient TargetsNo targets recorded. Patient Instructions Encounter Date Encounter Id Patient Instructions Last Modified By Organization Details Last Modified Time 03/26/2024 [id number] Call or return for questions or concerns. Not available 03/26/2024 13:02:26 07/03/2024 [id number] Call or return for questions or concerns. If he is feeling worse he should go to the ER. Not available 07/03/2024 13:29:41 Reason for Referral None Reported. Results Created Date Observation Date Name Description Value Unit Range Abnormal Flag Note LastModifiedBy Organization Detail LastModifiedTime 03/17/2003/19/2023 SARS COV 2 RNA(C OVID 19), QUALI TATIV E NAAT sars cov 2 RNA NOT DETECT ED not detect ed A Not Detec emmanuel resul t means that SARS- CoV-2 RNA was not prese nt in the speci men above the limit of detec tion. A Not Detec emmanuel resul t does not rule out the possi bilit y of COVID -19 and shoul d not be used as the sole basis for treat ment or patie nt manag ement decis ions. If COVID -19 is still suspe cted, based on expos ure histo ry toget her with other clini ancelmo findi ngs, re-te sting shoul d be consi dered in the gemma xt of clini ancelmo obser vatio ns and epide miolo gical data for patie nt manag ement decis ions. Test Metho d: Nucle ic Acid Ampli ficat ion Test inclu ding rever se trans cript ion polym erase chain react ion (RT-P CR) and trans cript ion media emmanuel ampli ficat ion (TMA) . The test metho d meets the [place] Cente rs for Disea se Contr ol and preve ntion (CDC) pre depar ture and arriv al requi remen t for viral test for COVID -19 dated 2020. Testi ng requi remen ts for trave feliciano knight e with time. The patie nt is respo nsibl e for deter minin g the test requi remen ts for each natio n while they are trave ling. This test has been autho rized by the FDA under an Emerg ency Use Autho rizat ion (EUA) for use by autho rized labor atori es. Jayde e tc w the Fact Sheet s and FDA autho rized label ing avail able for healt h care provi ders and patie nts using the follo wing websi sofi: https ://ww w.que stdia gnost ics.c om/ho me/Co vid-1 9/HCP /Ques tIVD/ fact- sheet .html https ://ww w.que stdia gnost ics.c om/ho me/Co vid-1 9/Pat ients / [facility] IVD/f act-s heet. html Due to the curre nt publi c healt h emerg ency, [facility] Diagn ostic s is accep sonja cadena es from appro priat e clini ancelmo sourc es colle cted using wide varie ty of swabs and trans port media for COVID -19. Not detec emmanuel test resul ts deriv ed from speci mens recei chantelle in non- comme rcial ly manuf actur ed viral colle ction kits or those not yet autho rized by FDA for COVID -19 testi ng shoul d be cauti ously evalu ated and take extra preca ution s such as addit ional clini ancelmo monit oring , inclu ding colle ction of an addit ional speci men. Addit ional infor matadeel n about COVID -19 can be found at the [facility] Diagn [facility] websi te: www.Nintu Oy uestD iagno stics .com/ Covid 19. For patie nts with a Detec emmanuel or Incon clusi ve test resul t, pleas e see CDC's COVID -19 Treat ments and Medic ation s page locat ed at https ://ww w.cdc .gov/ coron aviru s/201 9-nco v/you r-hea lt/t reatm ents- for- sever e-ill ness. html for infor matadeel n on COVID -19 thera peuti cs. For patie nts with a Not Detec emmanuel test resul t, pleas e see CDC's Vacci elly for COVID -19 page locat ed at https ://ww w.cdc .gov/ coron aviru s/201 9-nco v/vac cines /inde x.htm l for infor indraadeel stewart on COVID -19 vacci elly. Not Available [employer] [facility] [address], [place], [address], 03/19/2023 08:30:00 03/17/20 23 03/17/2023 SARS CoV 2 RNA, QL, nasop haryn x COVID negati ve Not Available [facility] ([facility]) [address] [place], [address], 03/17/2023 12:49:58 Result Notes None recorded. Problems Name Problem SNOMED Code Status Onset Date Resolution Date Notes Provider Name and Address Organization Details Recorded Time Open heart surgery 1136725 Active 2020 Open heart 4-bypass [place] Dr Jean; 05/10/2021 2:25PM by Bernadette Bonilla, RN, Office Visit; Promoted; acuity set as *; Not Available [facility] 03:16:24 Cardiac pacemaker in situ 979337874 Active 2020 STATUS CARDIAC PACEMAKER; Recorded 05/10/2021 2:25PM by Bernadette Bonilla RN, Office Visit; Promoted; acuity set as *; Not Available [facility] 3 03:16:27 Leukemia 36599344 Active 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 Mann; 05/10/2021 2:25PM by Bernadette Bonilla, RN, Office Visit; Promoted; acuity set as *; Not Available [facility] 3 03:16:30 Benign essential hypertens ion 0611883 Active 2020 Hypertensi on; 05/10/2021 2:25PM by Bernadette Bonilla RN, Office Visit; Promoted; acuity set as *; Not Available [facility] 3 03:16:35 Type 2 diabetes mellitus without complicat ion 476370989 Active 2020 Non-Insuli n Dependent Diabetes Mellitus; pt test QID; 05/10/2021 2:25PM by Bernadette Bonilla RN, Office Visit; Promoted; acuity set as *; Not Available [facility] 3 03:16:37 Problem Notes None recorded. Medical Equipment None Reported. Allergies Allergen ID Allergen Name Allergen Category Reaction Reaction Severity Criticality Documentation Date Start Date Code Code System Note Provider Name and Address Organization Details Recorded Time 23261 iodine medicatio n Not available Not available Not available 01/18/2023 5933 RxNorm Comme nt: Recor ded 05/10 2:25P M by Ryan Bonilla RN, Offic e Visit ; Promo emmanuel; Signi kalin ce: *; Reaso n: Drug aller gy; ; Not Available [facility] 3 02:24:23 57598 Uloric medicatio n hives Not available Not available 01/18/2023 36838 6 RxNorm React ion: Hives ; Comme nt: Recor ded 05/10 2:25P M by Ryan Bonilla RN, Offic e Visit ; Promo emmanuel; Signi ficloren ce: *; Reaso n: Drug aller gy; ; Not Available [facility] 3 02:24:23 76976 allopurin ol medicatio n abdominal pain Not available Not available 01/18/2023 519 RxNorm React ion: Abdom inal pain, Hives ; Comme nt: Recor ded 05/10 2:25P M by Ryan Bonilla RN, Offic e Visit ; Promo emmanuel; Signi kalin ce: *; Reaso n: Drug aller gy; ; Not Available [facility] 3 02:24:23 33633 Flomax medicatio n other Not available Not available 01/18/2023 97996 3 RxNorm React ion: Blood disor luz marina; Comme nt: Recor ded 05/10 2:25P M by Ryan Bonilla RN, Offic e Visit ; Promo emmanuel; Signi ficloren ce: *; Reaso n: Drug aller gy; ; Not Available [facility] 3 02:24:23 78680 Levaquin medicatio n hallucina tions Not available Not available 01/18/2023 62471 2 RxNorm React ion: demen tia, confu garfield, hallu cinat ions, agita tion; Comme nt: Recor ded 05/10 2:25P M by Ryan Bonilla RN, Offic e Visit ; Promo emmanuel; Signi fican ce: *; Reaso n: Drug aller gy; ; Not Available [facility] 3 02:24:23 15443 Seroquel medicatio n hallucina tions Not available Not available 01/18/2023 13505 RxNorm React ion: hallu cinat ions; Comme nt: Recor ded 05/10 2:25P M by Ryan Bonilla RN, Offic e Visit ; Promo emmanuel; Signsusan gagnon ce: *; Reaso n: Drug aller gy; ; Not Available [facility] 3 02:24:23 Medications Name Sig Start Date Stop Date Status Note LastModified by Organization Details LastModified Time furosemid e 40 mg tablet TAKE 1 TABLET BY MOUTH ONCE DAILY NEEDED FOR EDEMA active Not Available Not Available No t Available prednison e 10 mg tablet TAKE 1 TABLET BY MOUTH DIRECTED 03/26 completed Not Available Not Available Not Available doxycycli ne hyclate 100 mg capsule TAKE 1 CAPSULE BY MOUTH TWICE DAILY FOR 10 DAYS active Not Available Not Available No t Available ondansetr on HCl 4 mg tablet Take 1 tablet 3 times a day by oral route as needed for 4 days. 03/26 completed Not Available Not Available Not Available glipizide 10 mg tablet Take 1 tablet by mouth twice daily active Not Available Not Available No t Available isosorbid e mononitra te ER 30 mg tablet,ex tended release 24 hr QNoon active 0; Recorded 05/10/20 21 2:25PM by Bernadette Bonilla RN, Office Visit; Not Available Not Available Not Available Anucort-H C 25 mg supposito ry INSERT 1 SUPPOSIT ORY RECTALLY 2 TIMES A DAY NEEDED FOR ITCHING active Not Available Not Available No t Available Lantus U-100 Insulin 100 unit/mL subcutane ous solution QD 2019 active 25 units QHS; Recorded 02/07/20 2:19PM by Bernadette Bonilla RN, Office Visit; Refill Quantity : 1; month; Not Available Not Available Not Available clopidogr el 75 mg tablet Take 1 tablet every day by oral route. 07/03 completed Not Available Not Available Not Available isosorbid e mononitra te ER 60 mg tablet,ex tended release [address] Orellana; 0; Recorded 05/10/20 2:25PM by Bernadette Bonilla, RN, Office Visit; Not Available Not Available Not Available tamsulosi n 0.4 mg capsule QD 03/26 completed 0; Recorded 05/10/20 2:25PM by Bernadette Bonilla, RN, Office Visit; Not Available Not Available Not Available monteluka st 10 mg tablet TAKE 1 TABLET BY MOUTH ONCE DAILY active Not Available Not Available No t Available nystatin 100,000 unit/gram topical powder APPLY POWDER TOPICALL Y TO AFFECTED AREA TWICE DAILY active Not Available Not Available No t Available fluticaso ne 100 mcg-salme terol 50 mcg/dose blistr powdr for inhalatio n Inhale 1 puff twice a day by inhalati on route. active Not Available Not Available No t Available finasteri de 5 mg tablet QD active 0; Recorded 05/10/20 2:25PM by Bernadette Bonilla RN, Office Visit; Not Available Not Available Not Available loratadin e qd active 0; Recorded 05/10/20 21 2:25PM by Bernadette Bonilla RN, Office Visit; Not Available Not Available Not Available atorvasta tin active Not Available Not Available Not Available tamsulosi n active Not Available Not Available Not Available Lasix BID 2020 active Recorded 05/10/20 21 3:20PM by Alejandro Macias MD, Office Visit; Refill Quantity : 0; Not Available Not Available Not Available Fish Oil 07/03 completed Not Available Not Available Not Available Aspirin EC qd 07/03 completed 0; Recorded 05/10/20 21 2:25PM by Bernadette Bonilla RN, Office Visit; Not Available Not Available Not Available diclofena c sodium QID prn 03/[address] Mann; 0; Recorded 05/10/20 21 2:25PM by Bernadette Bonilla, RN, Office Visit; Not Available Not Available Not Available carvedilo l active Not Available Not Available Not Available Plavix QD 03/26 completed 0; Recorded 05/10/20 21 2:25PM by Bernadette Bonilla, RN, Office Visit; Not Available Not Available Not Available Nitrostat Q5 minutes x 3 prn 2019 active VO JR/[facility] pharmacy ; Recorded 01/20/20 21 8:38AM by Janel Abarca, Office Visit; Refill Quantity : 30; Tablet; Not Available Not Available Not Available nifedipin e active Not Available Not Available Not Available Vitamin D3 daily 07/03 completed 0; Recorded 05/10/20 21 2:25PM by Bernadette Bonilla, RN, Office Visit; Not Available Not Available Not Available Magnesium -Oxide PM 07/03 completed 0; Recorded 05/10/20 21 2:25PM by Bernadette Bonilla, RN, Office Visit; Not Available Not Available Not Available Novolog U-100 Insulin aspart TAD active 0; Recorded 05/10/20 21 2:25PM by Bernadette Bonilla, RN, Office Visit; Not Available Not Available Not Available sevelamer carbonate 800 mg tablet TAKE 1 TABLET BY MOUTH THREE TIMES A DAY WITH MEALS active Not Available Not Available No t Available Accu-Chek Active three times daily 2021 active v/o JR/tn Dx- E11.8; 173; Recorded 08/08/19 22 4:10PM by Noah garduno (Authori zed through Alejandro Macias MD), Refill Request; Refill Quantity : 270; Strip; Not Available Not Available Not Available diclofena c 1 % topical gel APPLY 2 GRAMS TO THE AFFECTED AREA(S) BY TOPICAL ROUTE 4 TIMES PER DAY active Not Available Not Available No t Available amlodipin e besylate (bulk) qd 03/26 completed vo JR/tn; 173; Recorded 11/27/19 22 10:53AM by Noah garduno (Authori zed through Alejandro Macias MD), Refill Request; Refill Quantity : 90; Tablet; Not Available Not Available Not Available ibrutinib qd 07/[address] Mann; 0; Recorded 05/10/20 21 2:25PM by Bernadette Bonilla, RN, Office Visit; Not Available Not Available Not Available cholecalc iferol (vit D3) 1,000 unit-elliot min K2 (MK4) 100 mcg tablet Take by oral route. active Not Available Not Available No t Available losartan potassium (bulk) daily 03/26 completed vo JR/bh; 173; Recorded 09/27/19 22 12:15PM by Bernadette Bonilla, SUDARSHAN (Authori emmanuel through Alejandro Macias MD), Refill Request; Refill Quantity : 100; Tablet; Not Available Not Available Not Available Paxlovid 300 mg (150 mg x 2)-100 mg tablets in a dose pack as directed 03/26 completed Not Available Not Available Not Available Vitals Date Recorded Body height Body mass index (BMI) Body weight Body temperature Heart rate Oxygen saturation Oxygen saturation in Arterial blood by Pulse oximetry Systolic blood pressure Diastolic blood pressure Provider Name and Address Organization Details Last Updated DateTime 5 180.34 cm 32.1 kg/m2 957657. 05 g 98.4 [degF] 77 /min 93 % 93 % 140 mm[Hg] 62 mm[Hg] Sherin Jama [facility] 5 12:50:20 Date Recorded Body height Body mass index (BMI) Body weight Oxygen saturation Oxygen saturation in Arterial blood by Pulse oximetry Heart rate Respiratory rate Body temperature Provider Name and Address Organization Details Last Updated DateTime 3 177.8 cm 35.7 kg/m2 496890. 5 g 98 % 98 % 94 /min 20 /min 98.2 [degF] SAILAJA ROSALES [facility] [address] [place], [address] , [facility] 3 12:51:23 Date Recorded Body weight Body mass index (BMI) Body height Body temperature Oxygen saturation Oxygen saturation in Arterial blood by Pulse oximetry Heart rate Systolic blood pressure Diastolic blood pressure Provider Name and Address Organization Details Last Updated DateTime 4 870662. 13 g 34.2 kg/m2 180.34 cm 98 [degF] 95 % 95 % 81 /min 132 mm[Hg] 58 mm[Hg] Sherin Jama [facility], [facility] 4 12:22:13 Social History None recorded. Functional Status None recorded. Mental Status None recorded. Family History Nothing Reported. Medical History No medical history recorded. Immunizations Vaccine Type Date Status Note Provider Nam e and Address Organization Details Recorded Time Td (adult), 2 Lf tetanus toxoid, preservative free, adsorbed 7 completed Not Available [facility] 01/18/2023 02:50:56 Influenza, split virus, trivalent, preservative 1 completed Not Available [facility] 01/18/2023 02:50:56 pneumococcal, unspecified formulation 1 completed Not Available [facility] 01/18/2023 02:50:56 zoster, unspecified formulation 1 completed Not Available [facility] 01/18/2023 02:50:56 Influenza, split virus, trivalent, preservative 1 completed Not Available [facility] 01/18/2023 02:50:56 pneumococcal polysaccharide PPV23 1 completed Not Available [facility] 01/18/2023 02:50:56 COVID-19, mRNA, LNP-S, PF, 30 mcg/0.3 mL dose 1 completed Not Available [facility] 01/18/2023 02:50:57 COVID-19, mRNA, LNP-S, PF, 30 mcg/0.3 mL dose 1 completed Not Available [facility] 01/18/2023 02:50:57 Past Encounters Encounter ID Performer Location Encounter Start Date Encounter Closed Date Diagnosis/Indication Diagnosis SNOMED-CT Code Diagnosis ICD10 Code Diagnosis Note [id number] [facility] ([facility]) [address] [place] [address] 03/17/2023 12:05:05 03/18/2023 14:42:14 Cough 38821778 R05.9 COVID-19 468560644 U07.1 Nausea 962619884 R11.0 [id number] [facility] ([facility]) [address] [place] [address] 03/26/2024 11:40:55 03/26/2024 13:06:31 Seasonal allergic rhinitis 897132525 J30.2 [id number] [facility] ([facility]) [address] [place] [address] 07/03/2024 12:08:59 07/03/2024 13:37:45 Acute bacterial bronchitis 179445042 J20.9 End stage renal failure on dialysis 340578621 N18.[address] [place] out of [place] claire Health Concerns Section Related Observation LastModified by Organization Detai ls LastModified Time None Recorded Concern Status LastModified by Organization Details LastModified Time None Recorded Advance Directives Directive None Recorded Payers Insurance Date Sequence Insurance Name Policy Number Policy Cedillo Covered Member ID Cedillo Member ID Guarantor Name 03/26/2024 2 [employer] (MEDICARE SUPPLEMENT) Valente Renae [id number] Valente Renae 07/03/2024 1 [place] Valente Renae [id number] Valente Renae 07/03/2024 [place] - [place] - [facility] (MEDICARE) Valente Renae [id number] Valente Renae Notes Date Note Type Note Provider Name and Address Organization Details Recorded Time 03/17/2023 text/html COVID-19 Symptom s October 2019Reported bypatient.COVID-19 Signs and Symptomscough worsening;chills worsening;muscle pain worsening;headache worsening;fatigue worsening;diarrhea worsening;runny nose worsening;congestion worsening Contacts and ExposureCOVID positive at home Quality:productive cough Severity:moderate Duration:symptoms lasting 2 days Associated Symptoms:green sputum;fatigue Prior Labs and ImagingCOVID-19 nasopharyngeal swab (positive at home)Notes:Afebrile. No nausea. SAILAJA CONNIE, [address], [address], [facility], [place] 03/17/2023 13:27:21 03/26/2024 text/html CoughReported bypatient.Quality:pr oductive Severity:moderate Duration:constant Onset/Timing:sudden Context:non-smoker Associated Symptoms:no fever; no chills; no throat clearing walk in ptPt has had a terrible cough for a week and a half. TONY CAMPOS, [address], [address], [facility], [place] 03/26/2024 13:04:04 07/03/2024 text/html [facility] a [facility] and has [facility]. TONY CAMPOS [address], [address], [facility] [place] 07/03/2024 13:30:07
--- OUTSIDE RECORDS SUMMARY | 2024-12-18 16:20 | XMS_ITS | Encounter Summary ---
Author Organization [facility] Address [address] [place] [address] Care Team Providers Care Service Desk Analyst Name Role Phone Paula Sandoval MD Primary Care Provider + [phone] Reason for Visit * Reason Onset Date Comments Appointment Notification 05/25/2024 Needs a different appointment time 05/25/2024 Encounter Details Date Type Department Care Team (Late st Contact Info) Description 05/25/2024 Telephone [facility] [address] [place] [address] Eugenie Mederos, ALL [address] [facility] [address] [place] [address] Appointment Notification; Needs a different appointment time Social History Tobacco Use Types Packs/Day Years Used Date Smoking Tobacco: Unknown Alcohol Use Standard Drinks/Week Comments Not Currently [...] encounter Miscellaneous Notes * Telephone Encounter - [place] Mariahderick Medina - 05/25/2024 3:32 PM CST [place] (Provider) MESSAGE PT states his appointment was rescheduled to 06/09/2024, but [facility] found [facility]. PT asking to have the 06/09/2024 @ 3:00pm rescheduled, please. PT states Mon, Wed and Bertin are preferred Tues, Thurs and Sat are out, because he has dialysis Needs 10:30a and later due to the long drive in from [place] Please assist . Thank you Cardiology Security And Privacy Consultant: Kathi Putnam UNLOADER documented in this encounter Plan of Treatment Upcoming Encounters Date Type Department Care Team (Late st Contact Info) Description 12/23/2024 12:00 PM CDT Office Visit [facility] [place] [address] [facility] [address] [place] [address] Umm Dotson, [address] [place] [address] 01/21/2025 11:00 AM CDT Office Visit [facility] [address] [place] [address] Lyndsey Dorsey, MARCELLO [address] [place] [address] documented as of this encounter Visit Diagnoses Not on filedocumented in this encounter Care Teams Service Desk Analyst Relationship Specialty Start Date End Date Lori, Paula G, MD [address] [place] [address] PCP - General Family Practice 10/18/24 documented as of this encounter
[2024-12-18 16:21] VITALS: BP 123/59; PULSE 65; RESP 16; TEMP 36.5; O2SAT 96; BMI 32.1
--- NOTE | 2024-12-18 16:39 | W.ED.WEAKNES ---
HPI - Weakness General: Chief complaint: Weakness Stated complaint: needs 1 unit blood dialysis sent Time Seen by Provider: 12/18/24 16:28 Source: patient and family Mode of arrival: ambulatory Limitations: no limitations History of Present Illness: This patient was referred to the emergency department from dialysis unit. He apparently is anemic based upon a CBC from earlier this past week and was advised that he needed blood transfusion. He has a history of end-stage renal disease on dialysis and completed his dialysis run today. He also has a history of CLL. His hemoglobin has been steadily dropping over period of time but is maintaining a carina of somewhere between 9 and 10 g of hemoglobin and then recently has fallen below the. He was hospitalized at this facility for pneumonia and then sent to [facility] as well. He had a GI evaluation and found to have gastric ulcers that were not actively bleeding at that time. He is constitutionally weak but no recent fevers or other symptoms to suggest acute illness. He has a history of chronic atrial fibrillation as well as coronary artery disease had 4 but vessel bypass in the past. He is also recently had a graft placed in his right upper extremity for future dialysis. Associated symptoms: Reports easy bruising; Denies chest pain, chills, fever(s), headache(s), nausea or vomiting Review of Systems Const: Denies: fever(s) or chills ENMT: Denies: throat pain, odynophagia, nasal discharge or nasal congestion Card: Denies: chest pain or palpitations Resp: Denies: productive cough or non-productive cough GI: Denies: abdominal pain, nausea or vomiting : Reports: oliguria Musc: Denies: neck pain, back pain, extremity pain or extremity swelling Neuro: Denies: headache(s), numbness in extremities or weakness in extremities Madi/Lymph: Reports: easy bruising PFSH ED PFSH: Medical History Hyperuricemia History of COVID-19 (~12/2020) Anemia, unspecified Complex renal cyst BPH loc w urin obs/LUTS Diabetes HTN (hypertension) ASHD (arteriosclerotic heart disease) Dyslipidemia CKD (chronic kidney disease) CLL (chronic lymphocytic leukemia) Carotid stenosis, bilateral Surgical History H/O removal of testicle S/P appendectomy S/P CABG (coronary artery bypass graft) S/P PTCA (percutaneous transluminal coronary angioplasty) Status cardiac pacemaker Family History Mother , in her 70's Diabetes CAD (coronary artery disease) Father , at age 69 CAD (coronary artery disease) Hypertension Other Cancer Chronic kidney disease (CKD) Stroke Suicide Denies family history of Clotting disorder Dementia Hyperlipidemia Psychiatric illness Anesthesia complication Bleeding disorder Lung disease Social History Smoking and tobacco/nicotine status: former use of tobacco/nicotine Quit status (tobacco/nicotine): has quit using Year quit tobacco: 1989 Alcohol intake: never Substance/Drug Use: never Household members: spouse Marital status: Current occupational status: retired Physical Exam Narrative: EXAM NARRATIVE: He is alert in no acute distress answers questions in a goal-directed fashion. Const: COMMON NORMALS: no acute distress, average body habitus and patient oriented x3 GENERAL APPEARANCE: cooperative and comfortable HENMT: COMMON NORMALS: atraumatic, Normal nasal mucous membranes and turbinates present, moist oral mucous membranes and oropharynx normal HEAD & SCALP: atraumatic NOSE: Normal nasal mucous membranes and turbinates present Eye: COMMON NORMALS: Equal, round and reactive pupils present, conjunctivae normal and no scleral icterus CONJUNCTIVA: Yes conjunctivae normal PUPIL: Yes Equal, round and reactive pupils present Neck/C-Spine: COMMON NORMALS: full ROM, no JVD and No carotid bruits Chest: COMMONS NORMALS: normal inspection of the chest Resp: COMMON NORMALS: normal respiratory effort, No use of accessory muscles and clear to auscultation bilaterally AUSCULTATION: clear to auscultation bilaterally Cardio: COMMON NORMALS: no JVD, No murmurs present (Cardio) and Peripheral pulses 2+ throughout RHYTHM: abnormal rhythm irregularly irregular PERIPHERAL PULSES: Peripheral pulses 2+ throughout GI: COMMON NORMALS: Normal to inspection, nondistended, normoactive bowel sounds present and Soft to palpation PALPATION: Yes Soft to palpation Back/Pelvis: COMMON NORMALS: thoracic and lumbar spine normal to inspection and no thoracic nor lumbar tenderness Extremity: COMMON NORMALS: full ROM, capillary refill normal and no calf tenderness NARRATIVE EXTREMITY EXAM: Graft site in his right upper extremity is intact without any erythema drainage etc. Neuro: COMMON NORMALS: patient oriented x3, moves all extremities, no focal motor deficits and no sensory deficits noted Psych: COMMON NORMALS: mental status grossly normal Skin: COMMON NORMALS: no rashes or lesions noted, no wounds and turgor normal GENERAL SKIN EXAM: no rashes or lesions noted and turgor normal Course Reevaluation(s): Reevaluation #1: Hemoglobin 8.9 at this time. He apparently did receive Epogen last Friday and so apparently is having an effect on his bone marrow. At this point he does not need a transfusion and is stable and no evidence of an ongoing emergency medical condition and can be discharged to outpatient follow-up. He is seeing oncology at [facility] early next week. This was all discussed with patient and family members who are reassured and satisfied. Time: 17:33 Vital Signs: Vital signs: Vital Signs Temperature 97.7 F 12/18/24 16:21 Pulse Rate 95 12/18/24 17:13 Respiratory Rate 16 12/18/24 17:13 Blood Pressure 136/53 12/18/24 17:13 Pulse Oximetry 94 12/18/24 17:13 Oxygen Delivery Me thod Nasal Cannula 12/18/24 17:13 Oxygen Flow Rate 1 12/18/24 17:13 MDM - Weakness Medical Decision Making This patient was referred from dialysis because of concerns about possible anemia requiring a blood transfusion. He has had history of CLL as well as end-stage renal failure on dialysis and has had steadily falling hemoglobin as noted in the HPI. There was some concern that his hemoglobin was below 7 so he was sent here for transfusion. He does not have any ongoing issues other than his chronic fatigue and other symptoms related to his underlying disorder. Has not any recent fevers chills etc. He was hospitalized in November both here and at [facility]. Screening laboratories were obtained which revealed hemoglobin of 8.9 with the expected leukocytosis as a result of his CLL. Electrolytes are normal and his creatinine is actually 2.2 which is improved. At this point he is stable to be discharged to outpatient oncology follow-up Lab Data 12/18/24 16:47 12/18/24 16:47 Laboratory Results WBC 51.55 10^3/uL (3.29-11.43) H* 12/18/24 16:47 RBC 2.76 10^6/uL (3.85-5.65) L 12/18/24 16:47 Hgb 8.90 g/dL (11.27-16.99) L 12/18/24 16:47 Hct 29.0 % (37-53) L 12/18/24 16:47 MCV 105.1 fl (82-101) H 12/18/24 16:47 MCH 32.2 pg (27-33) 12/18/24 16:47 MCHC 30.7 g/dL (30-55) 12/18/24 16:47 RDW 18.6 % (12.1-15.1) H 12/18/24 16:47 Plt Count 117 10^3/cmm (157-399) L 12/18/24 16:47 MPV 9.9 fL (7.4-10.4) 12/18/24 16:47 Neut % (Auto) 3.7 % 12/18/24 16:47 Lymph % (Auto) 94.6 % 12/18/24 16:47 Claiborne % (Auto) 1.2 % 12/18/24 16:47 Eos % (Auto) 0.4 % 12/18/24 16:47 Baso % (Auto) 0.0 % 12/18/24 16:47 Neut # (Auto) 1.91 10^3/uL (1.8-7.7) 12/18/24 16:47 Lymph # (Auto) 48.8 10^3/uL (0.8-4.8) H 12/18/24 16:47 Claiborne # (Auto) 0.6 10^3/uL (0.2-0.9) 12/18/24 16:47 Eos # (Auto) 0.2 10^3/uL (0.0-0.8) 12/18/24 16:47 Baso # (Auto) 0.0 10^3/uL (0.0-0.1) 12/18/24 16:47 Nucleated RBC % (auto) 0 % 12/18/24 16:47 Nucleated RBCs # 0.0 /100WBC 12/18/24 16:47 Sodium 139 mmol/L (136-145) 12/18/24 16:47 Potassium 4.1 mmol/L (3.5-5.1) 12/18/24 16:47 Chloride 97 mmol/L (98-107) L 12/18/24 16:47 Carbon Dioxide 28 mmol/L (22-29) 12/18/24 16:47 Anion Gap 18.1 (5-19) 12/18/24 16:47 BUN 12 mg/dL (8-23) 12/18/24 16:47 Creatinine 2.2 mg/dL (0.7-1.2) H 12/18/24 16:47 GFR Calculation Not Reportable 12/18/24 16:47 Glucose 128 mg/dL (65-115) H 12/18/24 16:47 Calculated Osmolality 289 mOsm/kg (285-295) 12/18/24 16:47 Calcium 8.7 mg/dL (8.5-10.5) 12/18/24 16:47 Total Bilirubin 1.0 mg/dL (0.15-1.2) 12/18/24 16:47 AST 10 U/L (0-40) 12/18/24 16:47 ALT 12 U/L (0-41) 12/18/24 16:47 Alkaline Phosphatase 107 U/L (40-130) 12/18/24 16:47 Total Protein 5.7 g/dL (6.6-8.7) L 12/18/24 16:47 Albumin 4.1 g/dL (3.5-5.2) 12/18/24 16:47 Globulin 1.6 g/dL (1.3-4.6) 12/18/24 16:47 No radiology studies performed this visit Discharge Plan Discharge Patient Disposition: Home Clinical Impression: Anemia, End stage renal failure on dialysis, Chronic lymphocytic leukemia Condition: Stable Prescriptions: No Action cholecalciferol (vitamin D3) 25 mcg (1,000 unit) capsule 50 mcg PO DAILY atorvastatin 10 mg tablet 10 mg PO DAILY@18 carvedilol 3.125 mg tablet 3.125 mg PO Q12H Rx Instructions: must administer with a meal/food sevelamer carbonate 800 mg tablet 800 mg PO TID Rx Instructions: must administer with a meal/food finasteride 5 mg tablet 5 mg PO DAILY omega 2-whg-zxd-fish oil [Fish Oil] 1,000 mg (120 mg-180 mg) capsule 1 cap PO BID insulin glargine 100 unit/mL (3 mL) insulin pen 35 unit SUBCUT QAM nifedipine 60 mg tablet extended release 60 mg PO DAILY isosorbide mononitrate 120 mg tablet extended release 24 hr 120 mg PO DAILY Qty: 90 3RF furosemide 40 mg tablet See Rx Instructions .ROUTE .COMPLEX Qty: 30 0RF Dose Instruction: TAKE 1 TABLET BY MOUTH ONCE DAILY NEEDED FOR EDEMA Rx Instructions: TAKE 1 TABLET BY MOUTH ONCE DAILY NEEDED FOR EDEMA; docusate sodium [Colace] 100 mg Capsule 100 mg PO BID PRN (Reason: Constipation) fluticasone propionate [Flonase Allergy Relief] 50 mcg/actuation spray,suspension 2 spray INTRANASAL DAILY Novolin R Regular U100 Insulin 100 unit/mL Solution See Rx Instructions .ROUTE .COMPLEX Rx Instructions: sliding scale 3-18 units bid Claritin 10 mg Tablet 10 mg PO DAILY diclofenac sodium 1 % Gel 4 g TOPICAL QID PRN (Reason: Pain) tamsulosin 0.4 mg capsule 0.4 mg PO DAILY Discharge Orders: Discharge ED (Routine); Ordered 12/18/24 Ordered By: John Braun Referrals: Paula Sandoval MD [Primary Care Provider, Family Practice] Discharge Diet: Usual diet Discharge Activity: Increase activity as tolerated Patient Instructions: Opioid Safety, Pain Management, Patient Portal & [place] Instructions Activity Restrictions/Additional Instructions: As you are aware your blood count is improved likely due to the stimulating medication you received on last Friday. You do not require blood transfusion today. You should continue all your usual medications and activities and follow-up with your oncologist next week as scheduled. If you develop any new or worsening symptoms or other concerns you are welcome to return to the emergency department at any time. Print Language: Serbian Coding Level of Care Code ED It Operations Analyst for Chg Fwd Related Data Home Medications ?Medication ?Instructions ?Recorded ?Confirmed docusate sodium 100 mg capsule 100 mg PO BID PRN Constipation 12/02/19 07/07/24 (Colace) cholecalciferol (vitamin D3) 25 50 mcg PO DAILY 12/14/20 07/07/24 mcg (1,000 unit) capsule atorvastatin 10 mg tablet 10 mg PO DAILY@18 03/02/21 07/07/24 diclofenac sodium 1 % topical gel 4 g topical QID PRN Pain 05/02/21 07/07/24 insulin regular human 100 unit/mL See Rx Instructions .Route 05/02/21 07/07/24 injection solution (Novolin R .COMPLEX see pharmacy comments Regular U-100 Insulin) loratadine 10 mg tablet (Claritin) 10 mg PO DAILY 05/02/21 07/07/24 tamsulosin 0.4 mg capsule 0.4 mg PO DAILY 10/18/21 07/07/24 fluticasone propionate 50 2 spray intranasal DAILY 07/16/22 07/07/24 mcg/actuation nasal spray,suspension (Flonase Allergy Relief) finasteride 5 mg tablet 5 mg PO DAILY 11/20/22 07/07/24 insulin glargine 100 unit/mL (3 35 unit SUBCUT QAM 11/20/22 07/07/24 mL) subcutaneous pen nifedipine 60 mg tablet,extended 60 mg PO DAILY 11/20/22 07/07/24 release omega 4-ejn-pez-fish oil 1,000 mg 1 cap PO BID 11/20/22 07/07/24 (120 mg-180 mg) capsule (Fish Oil) carvedilol 3.125 mg tablet 3.125 mg PO Q12H 05/12/24 07/07/24 sevelamer carbonate 800 mg tablet 800 mg PO TID 05/12/24 07/07/24 Previous Rx's ?Medication ?Instructions ?Recorded isosorbide mononitrate 120 mg 120 mg PO DAILY #90 tabs 09/25/23 tablet,extended release 24 hr furosemide 40 mg tablet See Rx Instructions .Route 02/10/24 .COMPLEX #30 tabs Allergies Allergy/AdvReac Type Severity Reaction Status Date / Time allopurinol Allergy ALGY-Rash Verified 07/07/24 10:04 Iodinated Contrast Media Allergy ALGY-Hives Verified 07/07/24 10:04 levofloxacin (From Levaquin) Allergy ADR-Confusi Verified 07/07/24 10:04 on metformin Allergy ADR-Fatigue Verified 07/07/24 10:04 d
--- NOTE | 2024-12-18 16:59 | PC.NURSE ---
md informed of patient family request to place pt on oxygen. daughter educated on md order to keep oxygen above 92% due to likely anemia.
[2024-12-18 17:00] LABS: Eosinophils # 0.2 10^3/uL (0.0-0.8); Eosinophils % 0.4 %; Lymphocytes # 48.8 10^3/uL (0.8-4.8); Lymphocytes % 94.6 %; Mean Corpuscular HGB Conc 30.7 g/dL (30-55); Mean Corpuscular Hemoglobin 32.2 pg (27-33); Mean Corpuscular Volume 105.1 fl (82-101); Mean Platelet Volume 9.9 fL (7.4-10.4); Monocytes # 0.6 10^3/uL (0.2-0.9); Monocytes % 1.2 %; Neutrophils # 1.91 10^3/uL (1.8-7.7); Neutrophils % 3.7 %; Nucleated Red Blood Cells % 0 %; Platelet Count 117 10^3/cmm (157-399); Red Blood Count 2.76 10^6/uL (3.85-5.65); Red Cell Distribution Width 18.6 % (12.1-15.1)
[2024-12-18 17:13] VITALS: BP 136/53; PULSE 95; RESP 16; O2SAT 94
[2024-12-18 17:17] LABS: Alanine Aminotransferase 12 U/L (0-41); Albumin Level 4.1 g/dL (3.5-5.2); Alkaline Phosphatase 107 U/L (40-130); Anion Gap 18.1 (5-19); Aspartate Amino Transferase 10 U/L (0-40); Blood Urea Nitrogen 12 mg/dL (8-23); Calcium 8.7 mg/dL (8.5-10.5); Carbon Dioxide 28 mmol/L (22-29); Chloride 97 mmol/L (98-107); Globulin 1.6 g/dL (1.3-4.6); Glucose 128 mg/dL (65-115); Osmolality Calculated 289 mOsm/kg (285-295); Potassium 4.1 mmol/L (3.5-5.1); Sodium 139 mmol/L (136-145); Total Protein 5.7 g/dL (6.6-8.7)
[2024-12-18 17:21] LABS: White Blood Count 51.55 10^3/uL (3.29-11.43)
[2024-12-18 17:22] LABS: Slide Review Slide Review Perform
[2024-12-18 17:42] VITALS: BP 140/53; PULSE 65; RESP 16; O2SAT 96
== END 2024-12-18 17:56 | disposition home or self-care (01) ==
PROVIDERS: Emergency Provider Emergency Medicine; PCP Family Medicine
DX: D64.9 Anemia, unspecified (principal); E11.22 Type 2 diabetes mellitus with diabetic chronic kidney disease; I12.0 Hypertensive chronic kidney disease with stage 5 chronic kidney disease or end stage renal disease; N18.6 End stage renal disease; Z87.891 Personal history of nicotine dependence; C91.10 Chronic lymphocytic leukemia of B-cell type not having achieved remission; Z79.4 Long term (current) use of insulin
CPT/HCPCS: 80053; 85025; 86850; 86900; 99283

== ENCOUNTER 2024-12-28 21:24 | Emergency (ER) | payer OTHER, MEDICARE, SELFPAY ==
--- OUTSIDE RECORDS SUMMARY | 2024-07-26 05:30 | XMS_ITS ---
Author Organization [facility] Address [address] [place] [address] Care Team Providers Care Dry Cans Back Tender Name Role Phone Corrina AGUERO Primary Care Provider Tito Wan Unavailable [phone] Michael Antonio MD Unavailable Sally Haney [phone] REASON FOR VISIT 4 month labs @ [facility] mail pt a copy Encounters Encounter Location Date Provider Diagnosis [facility] Nephrology [address] [facility] [address] [place] [address] 07/26/2024 Sally Haney Plan Of Treatment No Information Progress Notes * Qiana RENAEe LDOB:1945 (79 yo M)Acc No.[id number]:07/26/2024 Progress Notes Patient: Valente ALATORRE Provider: Nupur Haney CNP :1945 A ge:79 Y S ex:Male Date:07/26/2024 [address] [id number] Pcp:Corrina AGUERO Subjective: * Chief Complaints: * 1 . 4 month labs @ [facility] mail pt a copy. * Medical History: Objective: * Vitals: Assessment: Plan: * Treatment: Forms: * Billing Information: * Visit Code: * Procedure Codes: Care Plan Details* * Electronic signature of Demetrice Haney CNP on 12/28/2024 at 11:27 AM CDT Sign off status: Pending * Provider: Nupur Haney CNP Date: 0 07/26/2024 Generated for Lida harris/Elliot/Jolene on: 0 12/28/2024 11:27 AM SIRIAT
--- OUTSIDE RECORDS SUMMARY | 2024-08-16 04:00 | XMS_ITS | Encounter Summary ---
Author Name [facility] Organization [facility] Address [address] [place] [address] Care Team Providers Care Hat Finisher Name Role Phone TATO BARRAZA Primary Care [...] PART A Feb 21, 2009 PART A [id number] [phone] ANGELLA MARTIN PATIENT MEDICARE (WNR) MEDICARE (M) PART B Feb 21, 2009 PART B [id number] ANGELLA MARTIN PATIENT MEDICARE (WNR) MEDICARE (M) PART A Feb 21, 2009 PART A [id number] ANGELLA MARTIN PATIENT MEDICARE (WNR) MEDICARE (M) PART B Feb 21, 2009 PART B [id number] ANGELLA MARTIN PATIENT MEDICARE (WNR) MEDICARE (M) PART B Feb 21, 2009 PART B [id number] ANGELLA MARTIN PATIENT MEDICARE (WNR) MEDICARE (M) PART A Feb 21, 2009 PART A [id number] ANGELLA MARTIN PATIENT [employer] [place] [employer] PLAN F MEDIC ARE SUPPL EMENT 2013 PLAN F [id number] [phone] ANGELLA MARTIN PATIENT [employer] [place] [employer] SUPPLEMEN [place] MEDIC ARE SUPPL EMENT 2013 PLAN F [id number] [phone] ANGELLA MARTIN PATIENT Selected Encounter This section includes the information on record at [place] for the Encounter. Date/Time Encounter Type Encounter Description Reason Provider Source Aug 16, 2024 09:00 AM Outpatient Encounter COMMUNITY CARE CONSULT BAHMAN SAAVEDRA Encounter Template Text not used by [place] Plan of Treatment: Future Appointments (+ 6 months) and Future Tests (+/- 45 days) The Plan of Treatment section includes future care activities for the patient from all [place] treatmentfacilities. This section includes future appointments and future orders which are active, pending or scheduled. Future Appointments This section includes appointments that were scheduled to occur 6 months from the date of the Encounter, up to a maximum of 20 appointments. The data comes from all [place] treatment facilities. Appointment Date/Time Appointment Type Appointme nt Facility Name Aug 25, 2024 11:00 AM AMBULATORY - MEDICINE [facility] Sep 17, 2024 11:00 AM AMBULATORY - MEDICINE [facility] Oct 06, 2024 08:00 AM AMBULATORY - NONE [place] [facility] Oct 06, 2024 10:00 AM [facility] [place]IC[place] [facility] October 25, 2024 11:15 AM [facility]AT[facility] - [place]IC[place] [facility] October 27, 2024 10:30 AM AMBULATORY - MEDICINE [facility] October 27, 2024 10:31 AM [facility] - MEDIC[place] [facility] November 12, 2024 11:00 AM AM[facility]ULATORY - MEDIC[place] [facility] Dec 01, 2024 09:40 AM AMBULATORY - MEDICINE [facility] Dec 13, 2024 10:00 AM AMBULATORY - MEDICINE [facility] Dec 22, 2024 10:30 AM AMBULATORY - MEDICINE [facility] Active, Pending, and Scheduled Orders This section includes a listing of several types of active, pending, and scheduled orders, including clinic medications orders, diagnostic test orders, procedure orders and consult orders; where the start date of the order is 45 days before the date of the Encounter or 45 days after the date of theEncounter. The data comes from all [place] treatment facilities. Test Date/Time Test Type Test Details Facility Name Sep 15, 2024 01:23 PM Consult Order [facility] 657A4 Cons Network Admin's Choice [facility] Sep 15, 2024 01:23 PM Consult [facility]57[facility] Cons Network Admin's Choice [facility] Sep 29, 2024 07:55 AM Consult Order [id number] Cons Network Admin's Choice [facility] Lab Results: +/- 30 days of the encounter This section includes the Chemistry and Hematology Lab Results on record with [place] for the patient. Radiology Reports and Pathology Reports are provided separately, in subsequent sections. Lab Results This section contains the Chemistry/Hematology Results that were resulted 30 days before or 30 daysafter the date of the Encounter. Date/Time Source Result Type Result - Unit Interpretation Reference Range Specimen Type Comment Sep 13, 2024 08:[address] [facility] FERRITIN SERUM Specimen Type: SERUM No comment entered. Ordering Provider: RADHA PINK Report Released Date/Time: Jun 07, 2024 01:24 PM Reporting Lab: [place] [facility] [address] [place] [address] Performing Lab: [place] [facility] [address] [place] [address] FERRITIN 228 ng/mL 22-275 Sep 13, 2024 08:[address] [facility] FOLATE (PB) SERUM Specimen Typ e: SERUM No comment entered. Ordering Provider: RADHA PINK Report Released Date/Time: Jun 07, 2024 01:24 PM Reporting Lab: [place] [facility] [address] [place] [address] Performing Lab: [place] [facility] [address] [place] [address] FOLATE (PB) >20.0 ng/mL H 7-20 Sep 13, 2024 08:[address] [facility] B12 SERUM Specimen Type: SERUM No comment entered. Ordering Provider: RADHA PINK Report Released Date/Time: Jun 07, 2024 01:24 PM Reporting Lab: [place] [facility] [address] [place] [address] Performing Lab: [place] [facility] [address] [place] [address] B12 394 pg/mL 213-816 Sep 13, 2024 08:32 AM [facility] DIRECT LDL (MA-PB) PLASMA Specimen Type: PLASM A No comment entered. Ordering Provider: RADHA PINK Report Released Date/Time: Jun 07, 2024 01:24 PM Reporting Lab: [place] [facility] [address] [place] [address] Performing Lab: [place] [facility] [address] [place] [address] DIRECT LDL 40.9 mg/dL 0-99.9 Sep 13, 2024 08:[address] [facility] IRON/TIBC PROFILE PLASMA Specimen Type: PLASM A No comment entered. Ordering Provider: RADHA PINK Report Released Date/Time: Jun 07, 2024 01:24 PM Reporting Lab: [place] [facility] [address] [place] [address] Performing Lab: [place] [facility] [address] [place] [address] TIBC 218 ug/dL TRANSFERRIN 174 mg/dL 163-344 IRON SATURATION 33 20-50 IRON 71 ug/dL 65-175 Sep 13, 2024 08:[address] [facility] CHOLESTEROL PANEL (PB) PLASMA Specimen Type: P LASMA No comment entered. Ordering Provider: RADHA PINK Report Released Date/Time: Jun 07, 2024 01:24 PM Reporting Lab: [place] [facility] [address] [place] [address] Performing Lab: [place] [facility] [address] [place] [address] CHOLESTEROL 102 mg/dL 0-200 TRIGLYCERIDE 90 mg/dL 0-150 CALCULATED LDL 41.9 mg/dL HDL(New) 42.1 mg/dL H >40 HDL % OF TOTAL CHOLESTEROL (PB) 41.3 >25 Sep 13, 2024 08:[address] [facility] VITAMIN D, 25-HYDROXY SERUM Specimen Type: SE RUM No comment entered. Ordering Provider: RADHA PINK Report Released Date/Time: Jun 07, 2024 01:24 PM Reporting Lab: [place] [facility] [address] [place] [address] Performing Lab: [place] [facility] [address] [place] [address] VITAMIN D, 25-HYDROXY 53.9 ng/mL 30-96 Sep 13, 2024 08:32 AM [facility] FOLATE (PB) SERUM Specimen Typ e: SERUM No comment entered. Ordering Provider: RADHA PINK Report Released Date/Time: Jun 07, 2024 01:24 PM Reporting Lab: [place] [facility] [address] [place] [address] Performing Lab: [place] [facility] [address] [place] [address] FOLATE (PB) >20.0 ng/mL H 7-20 Sep 13, 2024 08:32 AM [facility] B12 SERUM Specimen Type: SERUM No comment entered. Ordering Provider: RADHA PINK Report Released Date/Time: Jun 07, 2024 01:24 PM Reporting Lab: [place] [facility] [address] [place] [address] Performing Lab: [place] [facility] [address] [place] [address] B12 368 pg/mL 213-816 Sep 13, 2024 08:32 AM [facility] HGA1C BLOOD Specimen Type: BLOOD No comment entered. Ordering Provider: RADHA PINK Report Released Date/Time: Jun 07, 2024 01:24 PM Reporting Lab: [place] [facility] [address] [place] [address] Performing Lab: [place] [facility] [address] [place] [address] HGA1C 7.6 H 4.0-6.0 Sep 13, 2024 08:32 AM [facility] COMPREHENSIVE METABOLIC PANEL PLASMA Specimen Type: PLASMA No comment entered. Ordering Provider: RADHA PINK Report Released Date/Time: Jun 07, 2024 01:24 PM Reporting Lab: [place] [facility] [address] [place] [address] Performing Lab: [facility] [address] [place] [address] CREATININE 3.74 mg/dL H 0.7-1.3 UREA NITROGEN 39 mg/dL H 9-25 GLUCOSE 175 mg/dL H 72-99 SODIUM 138 meq/L 136-145 POTASSIUM 4.6 meq/L 3.5-5 CHLORIDE 102 meq/L 98-107 CARBON DIOXIDE 26 meq/L 22-31 CALCIUM 9.7 mg/dL 8.4-10.4 PROTEIN 6.4 g/dL 6-8.6 ALBUMIN 4.3 g/dL 3.4-5 TOTAL BILIRUBIN 0.6 mg/dL 0.2-1.2 ALKALINE PHOSPHATASE 99 U/L 40-150 AST/SGOT 15 U/L 5-34 ALT/SGPT 11 U/L 8-40 EGFR (CKD-EPI 2020) Sep 13, 2024 08:32 AM [facility] CBC BLOOD Specimen Type: BLOOD Comment: SUBMITTED FOR PATH REVIEW Ordering Provider: RADHA PINK Report Released Date/Time: Jun 07, 2024 01:24 PM Reporting Lab: [facility] [address] [place] [address] Performing Lab: [facility] [address] [place] [address] WBC 69.9 10*3/uL H 3.6-11.2 RBC 3.63 10*6/uL L 4.10-5.70 HGB 11.3 g/dL L 13.1-16.8 HCT 36.6 L 38.2-48.4 MCV 100.8 fL H 80.0-100.0 MCH 31.1 pg 27.0-34.0 MCHC 30.9 g/dL L 33.0-36.0 PLT 98 10*3/uL L 150-400 MPV 9.5 fL 7.5-11.2 NEUTROPHILS 3 MONOCYTES 1 EOSINOPHILS 1 PLT. (SMEAR EST.) DECREASED ADEQUATE SMUDGE CELLS 1+ RDW 14.4 11.8-15.1 LYMPHOCYTES 60 LYMPHOCYTES, AUTO % 94.1 MONOCYTES, AUTO % 2.0 NEUTROPHILS, AUTO % 3.1 EOSINOPHILS, AUTO % 0.6 BASOPHILS, AUTO % 0.1 LYMPHOCYTES, ABSOLUTE 65.78 10*3/uL H 0.77 -4.50 MONOCYTES, ABSOLUTE 1.40 10*3/uL H 0.19-0. 8 NEUTROPHILS, ABSOLUTE 2.19 10*3/uL 2.10- 8.00 EOSINOPHILS, ABSOLUTE 0.40 10*3/uL 0.00- 0.60 BASOPHILS, ABSOLUTE 0.05 10*3/uL 0.00-0. 20 ATYPICAL LYMPHOCYTES 35 IMMATURE GRANS, AUTO % 0.1 IMMATURE GRANS, AUTO ABS 0.08 10*3/uL H 0. 00-0.05 NORMRBC YES IG#-MDIFF 0.00 10*3/uL >0.00 EO#-MDIFF 0.70 10*3/uL H 0.00-0.60 MONO#-MDIFF 0.70 10*3/uL 0.19-0.8 LYMPH#-MDIFF 41.94 10*3/uL H 0.77-4.50 NEUT#-MDIFF 2.10 10*3/uL 2.10-8.00 Encounter Notes: All associated encounter notes This section contains the clinical notes associated to the Encounter. Date/Time Encounter Note(s) Provider Source Dec 21, 2024 09:32 AM NONVA NOTE: LOCAL TITLE: COMMUNITY CARE-CARE COORDINATION PLAN NOTE 657A4 PB STANDARD TITLE: NONVA NOTE DATE OF NOTE: DEC 21, 2024@09:32 ENTRY DATE: DEC 21, 2024@09:33:03 AUTHOR: BAHMAN SAAVEDRA EXP COSIGNER: URGENCY: STATUS: COMPLETED Community Care Consult: hem onc Consult No: [id number] [facility] Referral #: [id number] Chief Complaint: 12-18-24 ED visit to [facility], needs follow upwith ONC at [facility]. 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 No Level of Care Coordination Complex/Chronic Care Coordination was determined from: Chart Review Facility Community Care Office Contact Care Coordination Point of Contact: Bahman Saavedra Phone Number: [phone] Services: Moderate Care Coordination Services Case Management, if appropriate Direct communications with interdisciplinary team Plan: establish with [facility] does not want to see alfonzo /nichelel/ Bahman Saavedra BSN, RN Lawson Ashng [facility] Signed: 12/21/2024 09:34 BAHMAN SAAVEDRA [facility]
--- OUTSIDE RECORDS SUMMARY | 2024-12-20 19:00 | XMS_ITS ---
Author Name Marcela Gomez Address [address] [place] [address] Phone [phone] Organization [facility] e, NA DOCUMENT DISCLAIMER Multiple document versions may exist, please be sure you review the latest version. The information in the [facility] Progress Note Document represents a providers documented clinical note containing certain health and medical information. It may not contain the complete medical history for the patient and should be independently verified. The represented time in the document is Eastern Time PROVIDER ROUNDING NOTE COMPREHENSIVE Patient:?Valente?Oc,?1945,?79y,?M Dialysis?Location:?[place] Attending?Rivet Maker:?Sakshi Service?Date:?12/21/2024 Service?Provider:?Marcela?Patricia,?SUGAR CONTROLLER I?met?face?to?face?with?the?patient?today. 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 Needing?an?ICD?and?PPM?battery?changed.?Needing?to?have ?tunneled?line?removed?in?order?for?this?to?happen. ?? He?has?had?vein?mapping.?Waiting?for?AVF?appointment;?h e?is?in?the?[place]?system?and?this?has?been?the?holding?point?of?johnson. He?is?interested?in?HHD.?He?has?had?the?education.&#160 ;To?talk?with?[facility]?home?HD?nurse. Medications?and?labs?reviewed. LAST?HOSPITALIZATION Discharge?Diagnosis:?R65.21?Severe?sepsis?with?septic?shock Admission?Date?12/04/24 Discharge?Date?12/11/24 TREATMENT?ASSESSMENT BP?Sit?Pre ??12/21/2024:?115/54 ??12/18/2024:?134/56 ??12/16/2024:?114/51 BP?Stand?Post ??12/21/2024:?138/53 ??12/18/2024:?133/54 ??12/16/2024:?123/44 BP?Sit?Post ??12/21/2024:?129/85 ??12/18/2024:?118/46 ??12/16/2024:?136/49 Tx?Duration ??12/21/2024:?4:01 ??12/18/2024:?4:01 ??12/16/2024:?4:01 Missed?Treatments 0?-?last?30?days 0?-?last?60?days FLUID?ASSESSMENT Comments:??Weight?stable EDW?(kg) ??12/21/2024:?104.1 ??12/18/2024:?104.1 ??12/16/2024:?104.1 Weight?Pre?(kg) ??12/21/2024:?106.8 ??12/18/2024:?107.2 ??12/16/2024:?105.7 Weight?Post?(kg) ??12/21/2024:?104.0 ??12/18/2024:?105.7 ??12/16/2024:?106.0 PWV?(kg) ??12/21/2024:?-0.1 ??12/18/2024:?1.6 ??12/16/2024:?1.9 UF?Rate?(mL/kg/hr) ??12/21/2024:?6.7 ??12/18/2024:?3.5 ??12/16/2024:?-0.7 ADEQUACY?ASSESSMENT Comments:?Stable?trend spKt/V,?URR ??11/25/2024:?1.56,?76.0 ??10/28/2024:?1.62,?76.0 ??09/23/2024:?1.43,?72.0 ACCESS?ASSESSMENT ??Access?Type:?CVCatheter ??Access?SubType:?Tunneled ??Access?Status:?Active?(In?Use)?-?04/07/2024 ??Access?Location:?Chest ??Placed:?04/01/2024 Comments:?For?AVF?as?above. ANEMIA?ASSESSMENT Comments:?Hospitalized?for?anemia:??received?prbc? HGB,?TSAT ??12/14/2024:?6.9,?- ??12/02/2024:?9.4,?- ??11/25/2024:?10.5,?49.0 ?? Ferritin ??12/02/2024:?516.0 ??11/25/2024:?582.0 ??08/26/2024:?197.0 Epoetin?Sarath?(Epogen),?IVP?(units) ??12/21/2024:?5800 ??12/18/2024:?5800 ??12/16/2024:?5800 Iron?Sucrose?(Venofer)?(mg) ??12/21/2024:?50 ??12/14/2024:?50 ??11/30/2024:?50 BMM?ASSESSMENT Comments:?No?new?labs?to?review PTH,?Intact ??11/25/2024:?432.0 ??08/26/2024:?275.0 ?? Calcium,?Phosphorus ??11/25/2024:?8.6,?4.8 ??10/28/2024:?8.9,?5.1 ??09/23/2024:?8.9,?2.4 Vitamin?D?(Calcitriol)?Oral?(mcg) ??12/21/2024:?0.25 ??12/18/2024:?0.25 ??12/16/2024:?0.25 NUTRITION?ASSESSMENT Comments:?No?new?labs?to?review Potassium,?Albumin ??11/25/2024:?4.4,?3.9 ??10/28/2024:?4.8,?3.9 ??09/23/2024:?4.5,?3.6 ?? eNPCR ??11/25/2024:?0.71 ??10/28/2024:?0.86 ??09/23/2024:?1.04 PHYSICAL?EXAM Exam?Not?Performed. DIAGNOSIS Chief?Complaint:?N18.6?End?stage?renal?disease Comments:?Dialysis?treatments?stable?on?current?therapies Patient?data?updated?12/21/2024?at?5:55?PM Signed?By:?Patricia,?Marcela,?SUGAR CONTROLLER??on?12/21/2024?5:57:10 PM END OF DOCUMENT
--- OUTSIDE RECORDS SUMMARY | 2024-12-22 05:30 | XMS_ITS | Encounter Summary ---
Author Name [facility] [place] [facility] [place] Address [address] [place] [address] Care Team Providers Care Aerial Tram Operator Name Role Phone TATO BARRAZA Primary Care [...] PART A Feb 21, 2009 PART A [id number] ANGELLA MARTIN PATIENT MEDICARE (WNR) MEDICARE (M) PART B Feb 21, 2009 PART B [id number] [phone] ANGELLA MARTIN PATIENT MEDICARE (WNR) MEDICARE (M) PART B Feb 21, 2009 PART B [id number] [phone] ANGELLA MARTIN PATIENT MEDICARE (WNR) MEDICARE (M) PART A Feb 21, 2009 PART A [id number] ANGELLA MARTIN PATIENT MEDICARE (WNR) MEDICARE (M) PART A Feb 21, 2009 PART A [id number] ANGELLA MARTIN PATIENT MEDICARE (WNR) MEDICARE (M) PART B Feb 21, 2009 PART B [id number] ANGELLA MARTIN PATIENT [employer] [place] [employer] PL[employer] F MEDIC ARE SUPPL EMENT 2013 PLAN F [id number] [phone] ANGELLA MARTIN PATIENT [employer] [place] [employer] [place] [place] MEDIC ARE SUPPL EMENT 2013 PLAN F [id number] [phone] ANGELLA MARTIN PATIENT Selected Encounter This section includes the information on record at [place] for the Encounter. Date/Time Encounter Type Encounter Description Reason Pro vider Source Dec 22, 2024 10:30 AM Outpatient Encounter PRIMARY CARE/MEDICINE [facility] Encounter Template Text not used by [place] Plan of Treatment: Future Appointments (+ 6 months) and Future Tests (+/- 45 days) The Plan of Treatment section includes future care activities for the patient from all [place] treatmentfacilities. This section includes future appointments and future orders which are active, pending or scheduled. Future Appointments This section includes appointments that were scheduled to occur 6 months from the date of the Encounter, up to a maximum of 20 appointments. The data comes from all [place] treatment facilities. Appointment Date/Time Appointment Type Appointme nt Facility Name Jun 13, 2025 08:40 AM AMBULATORY - MEDICINE [facility] Jun 20, 2025 10:00 AM AMBULATORY - MEDICINE [facility] Active, Pending, and Scheduled Orders This section includes a listing of several types of active, pending, and scheduled orders, including clinic medications orders, diagnostic test orders, procedure orders and consult orders; where the start date of the order is 45 days before the date of the Encounter or 45 days after the date of theEncounter. The data comes from all [place] treatment facilities. Test Date/Time Test Type Test Details Facility Name Dec 20, 2024 10:07 AM Consult Order [facility]-HEMATOLOGY/ONC [id number] Cons Central Service Technician's Choice [facility] Dec 22, 2024 12:54 PM Consult Order [facility]ARE-GI GENERAL [id number] Cons Central Service Technician's Choice [facility] Dec 22, 2024 05:03 PM Consult Order COMMUNITY [facility]-SLEEP [id number] Cons Central Service Technician's Choice [facility] Lab Results: +/- 30 days of the encounter This section includes the Chemistry and Hematology Lab Results on record with [place] for the patient. Radiology Reports and Pathology Reports are provided separately, in subsequent sections. Lab Results This section contains the Chemistry/Hematology Results that were resulted 30 days before or 30 daysafter the date of the Encounter. Date/Time Source Result Type Result - Unit Interpretation Reference Range Specimen Type Comment Dec 01, 2024 09:24 AM [facility] TSH (MA-PB) SERUM Specimen Type: SERUM No comment entered. Ordering Provider: TATO BARRAZA Report Released Date/Time: Dec 09, 2023 10:52 AM Reporting Lab: [place] [facility] [address] [place] [address] Performing Lab: [place] [facility] [address] [place] [address] TSH 4.243 u[IU]/mL 0.47-5 Dec 01, 2024 09:24 AM [facility] HGA1C BLOOD Specimen Type: BLOOD No comment entered. Ordering Provider: TATO BARRAZA Report Released Date/Time: Dec 09, 2023 10:52 AM Reporting Lab: [place] [facility] [address] [place] [address] Performing Lab: [place] [facility] [address] [place] [address] HGA1C 7.4 H 4.0-6.0 Dec 01, 2024 09:24 AM [facility] CHOLESTEROL PANEL (PB) PLASMA Specimen Type: P LASMA No comment entered. Ordering Provider: TATO BARRAZA Report Released Date/Time: Dec 09, 2023 10:52 AM Reporting Lab: [place] [facility] [address] [place] [address] Performing Lab: [place] [facility] [address] [place] [address] CHOLESTEROL 84 mg/dL 0-200 TRIGLYCERIDE 103 mg/dL 0-150 CALCULATED LDL 27.9 mg/dL HDL(New) 35.5 mg/dL L >40 HDL % OF TOTAL CHOLESTEROL (PB) 42.3 >25 Dec 01, 2024 09:24 AM [facility] URINE ALBUMIN PROFILE-ih (PB) URINE Specimen Type: URINE No comment entered. Ordering Provider: TATO BARRAZA Report Released Date/Time: Dec 09, 2023 10:52 AM Reporting Lab: [place] [facility] [address] [place] [address] Performing Lab: [place] [facility] [address] [place] [address] URINE ALBUMIN (PB-STL) 417.30 mg/L uACR (PB-MA) 346.62 mg/g H 0-30 CREATININE URINE/OTHERS 120.39 mg/dL Dec 01, 2024 09:24 AM [facility] COMPREHENSIVE METABOLIC PANEL PLASMA Specimen Type: PLASMA No comment entered. Ordering Provider: TATO BARRAZA Report Released Date/Time: Dec 09, 2023 10:52 AM Reporting Lab: [place] [facility] [address] [place] [address] Performing Lab: [place] [facility] [address] [place] [address] CREATININE 3.11 mg/dL H 0.7-1.3 UREA NITROGEN [...] <7 U/L L 8-40 EGFR (CKD-EPI 2020) 19 Dec 01, 2024 09:24 AM [facility] CBC BLOOD Specimen Type: BLOOD No comment entered. Ordering Provider: TATO BARRAZA Report Released Date/Time: Dec 09, 2023 10:52 AM Reporting Lab: [place] [facility] [address] [place] [address] Performing Lab: [place] [facility] [address] [place] [address] WBC 59.9 10*3/uL H 3.6-11.2 RBC 3.15 [...] Date/Time Encounter Note(s) Provider Source Dec 22, 2024 11:34 AM EDUCATION NOTE: LOCAL TITLE: AFTER VISIT SUMMARY PB STANDARD TITLE: EDUCATION NOTE DICT DATE: DEC 22, 2024@10:30 ENTRY DATE: DEC 22, 2024@11:34:01 DICTATED BY: TATO BARRAZA EXP COSIGNER: URGENCY: STATUS: COMPLETED The patient was provided with a copy of an after-visit summary at the conclusion of the visit. The after-visit summary includes information pertaining to the patient's encounter, including diagnoses, vital signs, medications, and new orders, as well as a list of any upcoming appointments and information regarding the patient's ongoing care. The patient and/or family/caregiver was provided education on the pain management plan of care. The patient's medications were reviewed with the patient by the provider and were provided to the patient as an updated list of medications. The patient was instructed to inform the provider of any medication changes or discrepancies that were noted. Otherwise, the patient was instructed to continue the medications as prescribed. A copy of the after-visit summary provided to the patient is available in [facility]. SCANNED DOCUMENT SIGNATURE NOT REQUIRED Electronically Filed: 12/22/2024 by: MD [facility] TATO BARRAZA
--- OUTSIDE RECORDS SUMMARY | 2024-12-22 05:30 | XMS_ITS | Encounter Summary ---
Author Name [facility] [place] [facility] [place] [facility] [place] Address [address] [place] [address] Care Team Providers Care Design Project Manager Name Role Phone PAULA SANDOVAL Primary Care [...] PART A Feb 21, 2009 PART A [id number] ANGELLA MARTIN PATIENT MEDICARE (WNR) MEDICARE (M) PART B Feb 21, 2009 PART B [id number] [phone] ANGELLA MARTIN PATIENT MEDICARE (WNR) MEDICARE (M) PART A Feb 21, 2009 PART A [id number] ANGELLA MARTIN PATIENT MEDICARE (WNR) MEDICARE (M) PART B Feb 21, 2009 PART B [id number] [phone] ANGELLA MARTIN PATIENT MEDICARE (WNR) MEDICARE (M) PART A Feb 21, 2009 PART A [id number] ANGELLA MARTIN PATIENT MEDICARE (WNR) MEDICARE (M) PART B Feb 21, 2009 PART B [id number] ANGELLA MARTIN PATIENT [employer] [place] [employer] PLAN F MEDIC ARE SUPPL EMENT 2013 PLAN F [id number] [phone] ANGELLA MARTIN PATIENT [employer] [place] [employer] MED[employer] SUPPLEMEN [place] MEDIC ARE SUPPL EMENT 2013 PLAN F [id number] [phone] ANGELLA MARTIN PATIENT Selected Encounter This section [...] Primary/Secondary Diagnosis Diagnosis Name Provider Source Dec 22, 2024 05:04 PM PRIMARY Type 2 diabetes mellitus with unspecified complications [facility] Dec 22, 2024 05:04 PM SECONDARY Actinic keratosis [facility] Dec 22, 2024 05:04 PM SECONDARY Allergic rhinitis, unspecified [facility] Dec 22, 2024 05:04 PM SECONDARY Athscl heart disease of [place] coronary artery w/o ang pctrs [facility] Dec 22, 2024 05:04 PM SECONDARY Benign prostatic hyperplasia without lower urinry tract symp [facility] Dec 22, 2024 05:04 PM SECONDARY Cardiomyopathy, unspecified [facility] Dec 22, 2024 05:04 PM SECONDARY Cerebral infarction, unspecified [facility] Dec 22, 2024 05:04 PM SECONDARY Chronic kidney disease, stage 4 (severe) [facility] Dec 22, 2024 05:04 PM SECONDARY 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 [facility] Dec 22, 2024 05:04 PM SECONDARY Contact with and exposure to other hazardous substances [facility] Dec 22, 2024 05:04 PM SECONDARY Essential (primary) hypertension [facility] Dec 22, 2024 05:04 PM SECONDARY Gastro-esophageal reflux disease without esophagitis [facility] Dec 22, 2024 05:04 PM SECONDARY Heart failure, unspecified [facility] Dec 22, 2024 05:04 PM SECONDARY Hyperlipidemia, unspecified [facility] Dec 22, 2024 05:04 PM SECONDARY Occlusion and stenosis of bilateral carotid arteries [facility] Dec 22, 2024 05:04 PM SECONDARY Oth transient cerebral ischemic attacks and related synd [facility] Dec 22, 2024 05:04 PM SECONDARY Other specified disorders of kidney and ureter [facility] Dec 22, 2024 05:04 PM SECONDARY Pain in left elbow [facility] Dec 22, 2024 05:04 PM SECONDARY Presence of cardiac pacemaker [facility] Dec 22, 2024 05:04 PM SECONDARY Sensorineural hearing loss, bilateral [facility] Dec 22, 2024 05:04 PM SECONDARY Sick sinus syndrome [facility] Dec 22, 2024 05:04 PM SECONDARY Tinnitus, bilateral PAULA SANDOVAL [facility] Dec 22, 2024 05:04 PM SECONDARY Type 2 diabetes mellitus with diabetic nephropathy [facility] Dec 22, 2024 05:04 PM SECONDARY Type 2 diabetes mellitus with diabetic polyneuropathy [facility] Dec 22, 2024 05:04 PM SECONDARY Unspecified sensorineural hearing loss [facility] S[facility]AL [place] [facility] Plan of Treatment: Future Appointments (+ 6 months) and Future Tests (+/- 45 days) The Plan of Treatment section includes future care activities for the patient from all [place] treatmentfacilities. This section includes future appointments and future orders which are active, pending or scheduled. Future Appointments This section includes appointments that were scheduled to occur 6 months from the date of the Encounter, up to a maximum of 20 appointments. The data comes from all [place] treatment facilities. Appointment Date/Time Appointment Type Appointme nt Facility Name Jun 13, 2025 08:40 AM AMBULATORY - MEDICINE [facility] Jun 20, 2025 10:00 AM AMBULATORY - MEDICINE [facility] Active, Pending, and Scheduled Orders This section includes a listing of several types of active, pending, and scheduled orders, including clinic medications orders, diagnostic test orders, procedure orders and consult orders; where the start date of the order is 45 days before the date of the Encounter or 45 days after the date of theEncounter. The data comes from all [place] treatment [facility]. Test Date/Time Test Type Test Details Facility Name Dec 20, 2024 10:07 AM Consult Order [facility]ONC [id number] Dec 22, 2024 12:54 PM Consult Order [facility]GI GENERAL [id number] Dec 22, 2024 05:03 PM Consult Order [facility]-SLEEP STUDY-[id number] [facility] Lab Results: +/- 30 days of the encounter This section includes the Chemistry and Hematology Lab Results on record with [place] for the patient. Radiology Reports and Pathology Reports are provided separately, in subsequent sections. Lab Results This section contains the Chemistry/Hematology Results that were resulted 30 days before or 30 daysafter the date of the Encounter. Date/Time Source Result Type Result - Unit Interpretation Reference Range Specimen Type Comment Dec 01, 2024 09:24 AM [facility] HGA1C BLOOD Specimen Type: BLOOD No comment entered. Ordering Provider: PAULA SANDOVAL Report Released Date/Time: Dec 09, 2023 10:52 AM Reporting Lab: [place] [facility] [address] [place] [address] Performing Lab: [facility] [address] [place] [address] HGA1C 7.4 H 4.0-6.0 Dec 01, 2024 09:24 AM [facility] TSH (MA-PB) SERUM Specimen Typ e: SERUM No comment entered. Ordering Provider: PAULA SANDOVAL Report Released Date/Time: Dec 09, 2023 10:52 AM Reporting Lab: [place] [facility] [address] [place] [address] Performing Lab: [place] [facility] [address] [place] [address] TSH 4.243 u[IU]/mL 0.47-5 Dec 01, 2024 09:24 AM [facility] CB URINE ALBUMIN PROFILE-ih (PB) URINE Specimen Type: URINE No comment entered. Ordering Provider: PAULA SANDOVAL Report Released Date/Time: Dec 09, 2023 10:52 AM Reporting Lab: [place] [facility] [address] [place] [address] Performing Lab: [place] [facility] [address] [place] [address] URINE ALBUMIN (PB-STL) 417.30 mg/L uACR (PB-MA) 346.62 mg/g H 0-30 CREATININE URINE/OTHERS 120.39 mg/dL Dec 01, 2024 09:24 AM [facility] CHOLESTEROL PANEL (PB) PLASMA Specimen Type: P LASMA No comment entered. Ordering Provider: PAULA SANDOVAL Report Released Date/Time: Dec 09, 2023 10:52 AM Reporting Lab: [place] [facility] [address] [place] [address] Performing Lab: [place] [facility] [address] [place] [address] CHOLESTEROL 84 mg/dL 0-200 TRIGLYCERIDE 103 mg/dL 0-150 CALCULATED LDL 27.9 mg/dL HDL(New) 35.5 mg/dL L >40 HDL % OF TOTAL CHOLESTEROL (PB) 42.3 >25 Dec 01, 2024 09:24 AM [facility] COMPREHENSIVE METABOLIC PANEL PLASMA Specimen Type: PLASMA No comment entered. Ordering Provider: PAULA SANDOVAL Report Released Date/Time: Dec 09, 2023 10:52 AM Reporting Lab: [place] [facility] [address] [place] [address] Performing Lab: [place] [facility] [address] [place] [address] CREATININE 3.11 mg/dL H 0.7-1.3 UREA NITROGEN [...] (CKD-EPI 2020) Dec 01, 2024 09:24 AM [facility] CBC BLOOD Specimen Type: BLOOD No comment entered. Ordering Provider: PAULA SANDOVAL Report Released Date/Time: Dec 09, 2023 10:52 AM Reporting Lab: [place] [facility] [address] [facility] [address] Performing Lab: [place] [facility] [address] [facility] [facility] [address] WBC 59.9 10*3/uL H 3.6-11.2 RBC 3.15 [...] /min 94 % 0 230.5 lb 32 [facility] Social History: Smoking Status (Most current) and Tobacco Use (All prior to encounter date) This section includes the most current, and the historical, smoking and tobacco- related health factors from the [place] facility where the Encounter took place. Current Smoking Status This section includes the most current smoking, or tobacco-related health factor, from the [place] facility where the Encounter took place. Date/Time Current Smoking Status Comment Facil ity Aug 25, 2024 11:00 AM VA-TOBACCO USE FORMER CIGARETTES [facility] Tobacco Use History This section includes a history of the smoking, or tobacco-related health factors, that were collected on or before the date of the Encounter. The data comes from the [place] facility where the Encounter took place. Date/Time Smoking Status/Tobacco Use Comment F acility Aug 25, 2024 11:00 AM VA-TOBACCO USE FORMER CIGARETTES [facility] Jun 13, 2023 11:00 AM VA-TOBACCO FORMER USER [facility] Jun 13, 2023 11:00 AM VA-TOBACCO QUIT 15 YRS OR MORE [facility] May 22, 2022 10:30 AM [facility] May 22, 2022 10:30 AM VA-TOBACCO QUIT 15 YRS OR MORE [facility] May 24, 2021 09:00 AM VA-TOBACCO NEVER USED [facility] Feb 07, 2020 10:30 AM VA-TOBACCO FORMER USER [facility] Feb 07, 2020 10:30 AM VA-TOBACCO QUIT 15 YRS OR MORE [facility] Aug 04, 2018 03:05 PM VA-TOBACCO FORMER USER [facility] Aug 04, 2018 03:05 PM VA-TOBACCO QUIT 15 YRS OR MORE [facility] Jun 30, 2017 02:33 PM QUIT TOBACCO >7 YEARS AGO [facility] Sep 17, 2012 02:58 PM QUIT TOBACCO >7 YEARS AGO [facility] Nov 30, 2004 09:55 AM CURRENT NON-TOBACCO USER-[facility] Jul 03, 2004 01:41 PM CURRENT NON-TOBACCO USER[facility]X [facility] Sep 01, 2003 02:24 PM CURRENT NON-TOBACCO USER-[facility]X [facility] Sep 16, 2002 10:15 AM CURRENT NON-TOBACCO USER[facility]X [facility] Encounter Notes: All associated encounter notes This section contains the clinical notes associated to the Encounter. Date/Time Encounter Note(s) Provider Source Dec 22, 2024 11:07 AM PRIMARY CARE [...] 25, 2024 He was recently hospitalized at [facility] on December 03, 2024 and subsequently transferred to [facility] in [place] for an 8-day stent for sepsis related to his dialysis shunt. He had that shunt replaced at the same time he had an echocardiogram which showed EF 20 to 25% and needs an new pacemaker battery but the plan is to actually replace the pacemaker with a pacemaker/defibrillator. He also had a EGD while he was in the hospital at [facility] within none bleeding gastric ulcer that was [...] pyh ALCOHOL: rarely DRUGS: no HX: BRANCH: [place] 1963-. 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 CHANGE SENSOR/SITE EVERY 14 DAYS. CONTACT [employer] CUSTOMER SERVICE AT ([id number]) FOR REPLACEMENT OF DAMAGED/MALFUNCTIONING SENSORS Indication: FOR [...] Recurrent TIA's/CVA/Carotid artery narrowing- US results at [facility] showed bilateral carotid 50-60% plaquing; he is on 81mg aspirin q day and Plavix; no recent issues Type 2 diabetes mellitus- much improved; he has the EXTRABANCAe CGM which is helpful. Will increase Lantus [...] Claritin BPH- controlled on Flomax and finasteride NAKNEK/tinnitus- stable Pain of left wrist/OA knees- stable [...] appointments. Medications Reconciled. See AVS given to [place]. Time spent 30 minutes. /nichelle/ Paula Sandoval MD [facility] Signed: 12/22/2024 17:04 12/22/2024 ADDENDUM STATUS: COMPLETED EGD stomach biopsy report obtained from [facility] which shows gastric and transitional mucosa involved by chronic lymphocytic leukemia/small lymphocytic lymphoma. Results sent to his oncologist that he has an appointment with tomorrow here in [place]. /nichelle/ Paula Sandoval MD [facility] Signed: 12/22/2024 17:06 PAULA SANDOVAL [facility] Dec 22, 2024 10:36 AM PRIMARY CARE [facility] NOTE: LOCAL TITLE: PRIMARY CARE NURSING PROGRESS NOTE (TEXT) NURSING P STANDARD TITLE: PRIMARY CARE NURSING NOTE DATE OF NOTE: DEC 22, 2024@10:36 ENTRY DATE: DEC 22, 2024@10:36:51 AUTHOR: JC CARDENAS COSIGNER: URGENCY: STATUS: COMPLETED Established Patient NISA MARTNI IS A 79 YEAR OLD MALE BEING SEEN IN CLINIC DEC 22, 2024. == == REASON FOR VISIT: is here for a hospital follow up seen in the ER on 12/18/24, was told that he did not need a blood transfusion. HH was up to 8.9. Did a 3 minute walk test with the Spo2 remained above 95%. [place] reported that he was feeling weak and had to stop. Let the know that he did not qualify for Oxygen at this time. The provider did talk to him about getting tested for need at night. Are you receiving care any where other than the [facility]? No Per [facility] Directive 1605.06, wristband documentation: Patient wristband was removed and destroyed by (staff name) Jenna Cardenas RN and placed in the designated [employer]ed-It bin. HEALTH AND SURGICAL HISTORY: Does patient report using home oxygen? No CURRENT ACTIVE MEDICATIONS FOR REVIEW: If the list for review does not include a component, then it was not applicable to this patient. Allergies/ADRs (Tool #5) FACILITY ALLERGY/ADR -------- No Remote Allergy/ADR Data available for this patient [facility] ALLOPURINOL [facility] CONTRAST MEDIA [facility] FLOMAX [facility] METFORMIN Med. Reconciliation (Tool #1) INCLUDED IN THIS LIST: Alphabetical list of active outpatient prescriptions dispensed from this [place] (local) and dispensed from another [place] or [facility]D facility (remote) as well as inpatient orders (local pending and active), local clinic medications, locally documented non-VA medications, and local prescriptions that have or been discontinued in the past 90 days. Non-VA Meds Last Documented On: Sep 17, 2024 NOTE The display of VA prescriptions dispensed from another [place] or [facility] facility (remote) is limited to active outpatient prescription entries matched to National Drug File at the originating site and may not include some items such as investigational drugs, compounds, etc. NOT INCLUDED IN THIS LIST: Medications self-entered by the patient into personal health records (i.e. [employer]) are NOT included in this list. Non-VA medications documented outside this [place], remote inpatient orders (regardless of status) and [...] CHOLESTEROL TAKE ORALLY WITH EVENING MEAL Rx# [id number] Last Released: 07/05/24 Qty/Days Supply: Rx Expiration Date: 04/27/25 Refills Remainin Indication: FOR HIGH CHOLESTEROL OUTPT CARVEDILOL 6.25MG TAB (Status = Active) TAKE ONE-HALF TABLET BY MOUTH TWICE A DAY FOR HEART FAILURE TAKE WITH FOOD. Rx# [id number] Last Released: 07/21/24 Qty/Days Supply: Rx Expiration Date: 04/27/25 Refills Remainin Indication: FOR HEART FAILURE OUTPT CHOLECALCIF 50MCG (D3-2,000UNIT) TAB (Status = Active) TAKE TWO TABLETS BY MOUTH ONCE A DAY FOR VITAMIN D SUPPLEMENTATION Rx# [id number] Last Released: 11/05/24 Qty/Days Supply: 180 Rx Expiration Date: 04/27/25 [...] DOSE WITH RULER ATTACHED INSIDE BOX) Rx# [id number] Last Released: 09/06/24 Qty/Days Supply: 300/ Rx Expiration Date: 04/27/25 Refills Remainin OUTPT FINASTERIDE 5MG TAB (Status = Active) TAKE ONE TABLET BY MOUTH ONCE A DAY SWALLOW WHOLE, DO NOT CRUSH, SPLIT, OR CHEW. Rx# [id number] Last Released: 11/24/24 Qty/Days Supply: 90 Rx Expiration Date: 09/18/25 Refills Remainin Non-VA FISH OIL 1000MG (500MG DHA/EPA) CAP TAKE 2 CAPSULES BY MOUTH TWICE A DAY WITH MEALS Jun 04, 2024 [place] RX: Non-VA medication recommended by [place] provider [place] RX: Patient wants to buy from Non-[place] pharmacy Indication: FOR HIGH TRIGLYCERIDES OUTPT FLUTICASONE PROP 50MCG 120D NASAL INHL (Status = Active) INSTILL 1 SPRAY IN NOSTRIL(S) ONCE A DAY FOR ALLERGIES (MUST BE USED DIRECTED FOR MINIMUM OF 21 DAYS TO PROVIDE ADEQUATE BENEFITS) Rx# [id number] Last Released: 09/20/24 Qty/Days Supply: Rx Expiration Date: 09/18/25 Refills Remainin OUTPT FOLIC ACID 1MG TAB (Status = Active) TAKE ONE TABLET BY MOUTH ONCE A DAY FOR FOLIC ACID SUPPLEMENTATION Rx# [id number] Last Released: 11/18/24 Qty/Days Supply: 100/ Rx Expiration Date: 06/08/25 Refills Remainin Indication: FOR FOLIC ACID SUPPLEMENTATION OUTPT INSULIN REG HUMAN 100 UNIT/ML NOVOLIN R (Status = Active) INJECT 15 UNITS UNDER THE SKIN THREE TIMES A DAY BEFORE MEALS FOR DIABETES ADMINISTER 30 MINUTES BEFORE FOOD DIRECTED. DISCARD 30 DAYS AFTER OPENING. Rx# [id number] Last Released: 09/22/24 Qty/Days Supply: Rx Expiration Date: 09/18/25 Refills Remainin Indication: FOR DIABETES OUTPT INSULIN,GLARGINE,HUMAN 100 UNIT/ML INJ (Status = Active) INJECT 50 UNITS UNDER THE SKIN EVERY MORNING FOR DIABETES (AT SAME TIME EACH DAY) - (DISCARD ANY UNUSED PORTION 28 DAYS AFTER OPENING) ### Rx# [id number] Last Released: 09/30/24 Qty/Days Supply: Rx Expiration Date: 09/18/25 Refills Remainin Indication: FOR DIABETES OUTPT ISOSORBIDE MONONITRATE 30MG SA TAB (Status = Active) TAKE ONE TABLET BY MOUTH ONCE A DAY FOR CHEST PAIN TAKE ON EMPTY STOMACH. SWALLOW WHOLE. DO NOT CRUSH OR CHEW. Rx# [id number] Last Released: 07/07/24 Qty/Days Supply: Rx Expiration Date: 04/27/25 Refills Remainin Indication: FOR CHEST PAIN OUTPT LORATADINE 10MG TAB (Status = ) TAKE ONE TABLET BY MOUTH ONCE A DAY ON EMPTY STOMACH FOR ALLERGIES Rx# [id number] Last Released: 09/10/24 Qty/Days Supply: Rx Expiration Date: 12/08/24 Refills Remainin OUTPT NITROGLYCERIN 0.4MG SL TAB (Status = Active) DISSOLVE ONE TABLET UNDER THE TONGUE ONE-TIME FOR CHEST PAIN NEEDED; IF NO IMPROVEMENT AFTER FIRST DOSE CALL 9-1-1. MAY TAKE 2 ADDITIONAL DOSES, 5 MINUTES APART Rx# [id number] Last Released: 11/23/24 Qty/Days Supply: Rx Expiration Date: 04/20/25 Refills Remainin Indication: FOR CHEST PAIN OUTPT OLANZAPINE 10MG TAB (Status = Active) TAKE ONE-HALF TABLET BY MOUTH AT BEDTIME NEEDED FOR ANXIETY Rx# [id number] Last Released: 04/30/24 Qty/Days Supply: Rx Expiration Date: 04/27/25 Refills Remainin Indication: FOR ANXIETY OUTPT SEVELAMER CARBONATE 800MG TAB (Status = Active) TAKE ONE TABLET BY MOUTH THREE TIMES A DAY WITH MEAL(S) TAKE WITH FOOD. Rx# [id number] Last Released: 11/23/24 Qty/Days Supply: Rx Expiration Date: 04/24/25 Refills Remainin OUTPT TAMSULOSIN HCL 0.4MG CAP (Status = Active) TAKE TWO CAPSULES BY MOUTH EVERY EVENING APPROXIMATELY 30 MINUTES AFTER THE SAME MEAL EACH DAY (FOR PROSTATE) Rx# [id number] Last Released: 04/17/24 Qty/Days Supply: Rx Expiration Date: 03/20/25 Refills Remainin OUTPT TORSEMIDE 100MG TAB (Status = Active) TAKE ONE TABLET BY MOUTH DIRECTED ON NON-DIALYSIS DAYS (FRIDAY, FRIDAY, FRIDAY, AND FRIDAY) Rx# [id number] Last Released: 09/17/24 Qty/Days Supply: Rx Expiration Date: 09/14/25 Refills Remainin SUPPLIES OUTPT GLUCOSE SENSOR FREESTYLE KIERAN 2 (Status = Active) USE SENSOR EVERY 14 DAYS FOR BLOOD SUGAR MONITORING FOR CONTINUOUS GLUCOSE MONITORING. CHANGE SENSOR/SITE EVERY 14 DAYS. CONTACT [employer] CUSTOMER SERVICE AT ([id number]) FOR REPLACEMENT OF DAMAGED/MALFUNCTIONING SENSORS Rx# [id number] Last Released: 11/25/24 Qty/Days Supply: 08/20 Rx Expiration Date: 12/24/24 Refills Remainin Indication: FOR BLOOD SUGAR MONITORING OUTPT INSULIN SYRINGE 0.5ML 31G 8MM (Status = Active) USE SYRINGE UNDER THE SKIN FOUR TIMES A DAY FOR DIABETES TO USE WITH INSULIN Rx# [id number] Last Released: 05/28/24 Qty/Days Supply: 400/90 Rx Expiration Date: 05/28/25 Refills Remainin Indication: FOR DIABETES PHARMACY TERMS AND POSSIBLE PATIENT ACTIONS INPT = [place] inpatient order IV = [place] intravenous medication OUTPT = [place] outpatient prescription PHARMACY POSSIBLE PATIENT TERMS EXPLANATION ACTIONS -------- ----- ACTIVE A prescription that can be If you have refills, filled at the local [place] pharmacy. you may request a refill of this prescription from your VA pharmacy. CLINIC A medication you received during If you have questions a visit to a [place] clinic or about this medication emergency department. contact your VA healthcare team. DISCONTINUED A prescription your provider has Contact your VA stopped. It is no longer healthcare team if you available to be sent to you or need more of this picked up at the [place] pharmacy medication. window. A prescription which is [...] the VA. Or, it may be an [id number] (OTC), herbal, dietary supplements or sample medication. [...] An active prescription that is Contact your VA not scheduled to be filled yet. pharmacy if you need You should receive it before this medication now. you run out. Medication list reviewed with Patient and care transitions nurse Patient/Caregiver reports taking medications as ordered. IS PATIENT TAKING ANY OVER THE COUNTER MEDICATIONS, SUCH VITAMINS OR HERBAL SUPPLEMENTS, INCLUDING ANY MEDICATIONS PRESCRIBED BY ANOTHER PHYSICIAN? Yes, List: New protonix Does patient have any new allergies to report since last visit? NO VITALS: TEMPERATURE: 97.8 F [36.6 C] (04/26/2024 15:00) BP: 119/66 (08/25/2024 11:) RESP: 18 (08/25/2024:) PULSE: 84 (08/25/2024:) HT: 71.0 in [180.3 cm] (08/25/2024:) WT: 226.9 lb [102.92 kg] (08/25/2024) BMI: 31.7 PAIN ASSESSMENT: (Most Recent Pain [...] Now let us serve you. At the [facility], we strive to provide [...] Not At All SPIRITUAL ASSESSMENT: Are there restoration practices or spiritual concerns you want the president and chief executive officer, your physician, and other health care team members to immediately know about? No Patient advised to call the clinic for any concerns, questions, or symptoms. Patient and/or caregiver verbalized understanding of plan of care. Suicide Screen - V: C-SSRS Screening [place] Suicide Severity Rating Scale (C-SSRS) screener 1. [...] pain goal: 0 /nichelle/ Jc Cardenas RN,BSN OMAIRA Lea Signed: 12/27/2024 09:49 JC CARDENAS
--- OUTSIDE RECORDS SUMMARY | 2024-12-23 12:00 | XMS_ITS | Encounter Summary ---
Author Organization [facility] Address [address] [place] [address] Care Team Providers Care Cnc Mill Set Up Operator Name Role Phone Paula Sandoval MD Primary Care Provider + [phone] Reason for Visit * Reason Comments Follow Up Encounter Details Date Type Department Care Team (Late st Contact Info) Description 12/23/2024 12:00 PM CDT Office Visit [facility] Cancer and Hematology [place] [address] [facility] [address] [place] [address] Umm Dotson, [address] [place] [address] CLL (chronic lymphocytic leukemia) (CMS/HCC) [...] from the original note were not included. [facility] CANCER AND HEMATOLOGY CONSULTATION NOTE Visit Date: 12/23/2024 Valente Renae [id number] ONCOLOGIST: Dr. Umm Dotson PCP: Paula Sandoval MD REFERRING PROVIDER: Dr. Jazmin Lema, hospitalist DATE OF DIAGNOSIS: 12/10/2024- recurrence. 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) HPI: Valente Renae is an 79 yo male referred [...] therapy only once WBC >/= 100-150 PATHOLOGY: [id number] Order: [id number] Collected 12/10/2024 11:00 Status: Final result Test [...] pylori by immunohistochemistry REV: GERMAIN Sandoval MD [id number] Family History Problem Relation Name Age of [...] ESOPHAGOGASTRODUODENOSCOPY performed by Clinton Ascencio DO at [facility] ENDOSCOPY HX PACEMAKER PLACEMENT [place] CRTJ ALEN FSTL XCP DIR ALEN CASAS NONAUTOG GRF Right 11/29/2024 ARTERIOVENOUS GRAFT INSERTION performed by Klarissa Flowers MD at [facility] MAIN OR is allergic to febuxostat, allopurinol, [...] mg capsule fluticasone propionate (FLONASE) 50 mcg/spray [place], Suspension nasal inhaler acetaminophen (TYLENOL) 325 mg [...] HEENT: No blurry or double vision, not [place], no neck pain, no dysphasia. 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 Hypertension I10 Stage 4 chronic kidney disease (CMS/HCC) N18.4 Transient ischemic attack G45.9 Chronic lymphocytic leukemia (CMS/HCC) C91.10 Type 2 diabetes mellitus with kidney complication, with long-term current use of insulin ([facility]/HCC) E11.29, Z79.4 HLD (hyperlipidemia) E78.5 CAD (coronary artery disease) I25.10 History of coronary angioplasty with insertion of stent Z95.5 Hx of CABG Z95.1 Benign prostatic hyperplasia without lower urinary tract symptoms N40.0 Hemoptysis R04.2 Community acquired pneumonia of right upper lobe of lung J18.9 Lesion of right [place] kidney N28.9 Acute hypoxic respiratory failure (CMS/HCC) J96.01 Anemia D64.9 Thrombocytopenia D69.6 Moderate protein malnutrition E44.0 Dilated cardiomyopathy (CMS/HCC) I42.0 Acute combined systolic and diastolic congestive heart failure ([facility]/HCC) I50.41 Acute cystitis N30.00 Severe sepsis with septic shock ([facility]) A41.9, R65.21 ESRD (end stage renal disease) on dialysis ([facility]) N18.6, Z99.2 Metabolic acidosis E87.20 Elevated troponin level R79.89 Chronic combined systolic and diastolic CHF (congestive heart failure) ([facility]) I50.42 Ischemic dilated cardiomyopathy ([facility]) I25.5, I42.0 Melena K92.1 Acute blood loss [...] min spent This document was created by shove up software. Effort has been made to assure accuracy of this shove up. Any obvious errors or omissions should be clarified with the author of the document documented in this encounter Plan of Treatment Upcoming Encounters Date Type Department Care Team (Late st Contact Info) Description 12/30/2024 10:15 AM CDT Appointment [facility] Laboratory Services [address] [place] [phone] 01/03/2025 3:30 PM CDT Video Visit [facility] Cancer and Hematology [place] [address] [place] [phone] Iqra Brito NP [address] [phone] 01/17/2025 11:45 AM CDT Appointment [facility] [place] [facility] Laboratory Services [address] [place] [address] 01/19/2025 3:00 PM CDT Office Visit [facility] Cancer and Hematology [place] [address] [facility] [address] [place] [phone] Iqra Brito PANEL FLOW MACHINE OPERATOR [address] [phone] 01/21/2025 11:00 AM CDT Office Visit [facility] [address] [facility] [address] [place] [address] Lyndsey Dorsey, MARCELLO [address] [facility] [address] [place] [address] 03/18/2025 11:30 AM CDT Office Visit [facility] Vascular Surgery [place] [address] [place] [address] Klarissa Flowers MD [address] [facility] [address] [place] [address] documented as of this encounter Visit Diagnoses Diagnosis CLL (chronic lymphocytic leukemia) (CMS/HCC)- Primary Chronic lymphoid leukemia, without mention of having achieved remission documented in this encounter Care Teams Cnc Mill Set Up Operator Relationship Specialty Start Date End Date Paula Sandoval MD [address] [place] [phone] PCP - General Family Practice 10/18/24 documented as of this encounter
--- OUTSIDE RECORDS SUMMARY | 2024-12-27 09:31 | XMS_ITS | Encounter Summary ---
Author Name [facility] [place] Organization [facility] [place] Address [address] [place] [address] Care Team Providers Care Safety Scientist Name Role Phone TATO BARRAZA Primary Care [...] PART A Feb 21, 2009 PART A [id number] [phone] ANGELLA MARTIN PATIENT MEDICARE (WNR) MEDICARE (M) PART B Feb 21, 2009 PART B [id number] [phone] ANGELLA MARTIN PATIENT MEDICARE (WNR) MEDICARE (M) PART A Feb 21, 2009 PART A [id number] ANGELLA MARTIN PATIENT MEDICARE (WNR) MEDICARE (M) PART B Feb 21, 2009 PART B [id number] [phone] ANGELLA MARTIN PATIENT MEDICARE (WNR) MEDICARE (M) PART A Feb 21, 2009 PART A [id number] ANGELLA MARTIN PATIENT MEDICARE (WNR) MEDICARE (M) PART B Feb 21, 2009 PART B [id number] ANGELLA MARTIN PATIENT [employer] [place] [employer] F MEDIC ARE SUPPL EMENT 2013 PLAN F [id number] [phone] ANGELLA MARTIN PATIENT [employer] [place] [employer] SU[employer] [place] MEDIC ARE SUPPL EMENT 2013 PLAN F [id number] [phone] ANGELLA MARTIN PATIENT Selected Encounter This section includes the information on record at CT for the Encounter. Date/Time Encounter Type Encounter Description Reason Provider Source Dec 27, 2024 02:31 PM Outpatient Encounter COMMUNITY CARE CONSULT KATH ARROYO Encounter Template Text not used by CT Plan of Treatment: Future Appointments (+ 6 months) and Future Tests (+/- 45 days) The Plan of Treatment section includes future care activities for the patient from all CT treatmentfacilities. This section includes future appointments and future orders which are active, pending or scheduled. Future Appointments This section includes appointments that were scheduled to occur 6 months from the date of the Encounter, up to a maximum of 20 appointments. The data comes from all CT treatment facilities. Appointment Date/Time Appointment Type Appointme nt Facility Name Jun 13, 2025 08:40 AM AMBULATORY - MEDICINE [facility] Jun 20, 2025 10:00 AM AMBULATORY - MEDICINE [facility] Active, Pending, and Scheduled Orders This section includes a listing of several types of active, pending, and scheduled orders, including clinic medications orders, diagnostic test orders, procedure orders and consult orders; where the start date of the order is 45 days before the date of the Encounter or 45 days after the date of theEncounter. The data comes from all CT treatment facilities. Test Date/Time Test Type Test Details Facility Name Dec 20, 2024 10:07 AM Consult Order COMMUNITY CARE-HEMATOLOGY/ONC 657A4 Cons Control Area Operator's Choice [facility] Dec 22, 2024 12:54 PM Consult Order COMMUNITY CARE-GI GENERAL 657A4 Cons Control Area Operator's Choice [facility] Dec 22, 2024 05:03 PM Consult Order COMMUNITY CARE-SLEEP [id number] Cons Control Area Operator's Choice [facility] Lab Results: +/- 30 days of the encounter This section includes the Chemistry and Hematology Lab Results on record with CT for the patient. Radiology Reports and Pathology Reports are provided separately, in subsequent sections. Lab Results This section contains the Chemistry/Hematology Results that were resulted 30 days before or 30 daysafter the date of the Encounter. Date/Time Source Result Type Result - Unit Interpretation Reference Range Specimen Type Comment Dec 01, 2024 09:24 AM [facility] HGA1C BLOOD Specimen Type: BLOOD No comment entered. Ordering Provider: TATO BARRAZA Report Released Date/Time: Dec 09, 2023 10:52 AM Reporting Lab: [place] [facility] [address] [place] [address] Performing Lab: [place] [facility] [address] [place] [address] HGA1C 7.4 H 4.0-6.0 Dec 01, 2024 09:24 AM [facility] TSH (MA-PB) SERUM Specimen Typ e: SERUM No comment entered. Ordering Provider: TATO BARRAZA Report Released Date/Time: Dec 09, 2023 10:52 AM Reporting Lab: [place] [facility] [address] [place] [address] Performing Lab: [place] [facility] [address] [place] [address] TSH 4.243 u[IU]/mL 0.47-5 Dec 01, 2024 09:24 AM [facility] URINE ALBUMIN PROFILE-ih (PB) URINE Specimen Type: URINE No comment entered. Ordering Provider: TATO BARRAZA Report Released Date/Time: Dec 09, 2023 10:52 AM Reporting Lab: [place] [facility] [address] [place] [address] Performing Lab: [place] [facility] [address] [place] [address] URINE ALBUMIN (PB-STL) 417.30 mg/L uACR (PB-MA) 346.62 mg/g H 0-30 CREATININE URINE/OTHERS 120.39 mg/dL Dec 01, 2024 09:24 AM [facility] CHOLESTEROL PANEL (PB) PLASMA Specimen Type: P LASMA No comment entered. Ordering Provider: TATO BARRAZA Report Released Date/Time: Dec 09, 2023 10:52 AM Reporting Lab: [place] [facility] [address] [place] [address] Performing Lab: [place] [facility] [address] [place] [address] CHOLESTEROL 84 mg/dL 0-200 TRIGLYCERIDE 103 mg/dL 0-150 CALCULATED LDL 27.9 mg/dL HDL(New) 35.5 mg/dL L >40 HDL % OF TOTAL CHOLESTEROL (PB) 42.3 >25 Dec 01, 2024 09:24 AM [facility] COMPREHENSIVE METABOLIC PANEL PLASMA Specimen Type: PLASMA No comment entered. Ordering Provider: TATO BARRAZA Report Released Date/Time: Dec 09, 2023 10:52 AM Reporting Lab: [place] [facility] [address] [place] [address] Performing Lab: [place] [facility] [address] [place] [address] CREATININE 3.11 mg/dL H 0.7-1.3 UREA NITROGEN [...] (CKD-EPI 2020) Dec 01, 2024 09:24 AM [facility] BLOOD Specimen Type: BLOOD No comment entered. Ordering Provider: TATO BARRAZA Report Released Date/Time: Dec 09, 2023 10:52 AM Reporting Lab: [place] [facility] [address] [place] [address] Performing Lab: [place] [facility] [address] [place] [address] WBC 59.9 10*3/uL H 3.6-11.2 RBC 3.15 [...] Encounter. Date/Time Encounter Note(s) Provider Source Dec 27, 2024 02:31 PM NONVA NOTE: LOCAL TITLE: COMMUNITY CARE-CARE COORDINATION PLAN NOTE 657A4 PB STANDARD TITLE: NONVA NOTE DATE OF NOTE: DEC 27, 2024@14:31 ENTRY DATE: DEC 27, 2024@14:33:06 AUTHOR: KATH ARROYO EXP COSIGNER: URGENCY: STATUS: COMPLETED Community Care Consult: Gastroenterology Consult No: [id number] [facility] Referral #: [id number] Chief Complaint: 12-10-24 Dr. Ascencio, advised to follow up with GI in four weeks for DX A41.9 sepsis, unspecified organism Patient Admitted? No Level of Care Coordination Moderate Care Coordination was determined from: Chart Review Facility Community Care Office Contact Care Coordination Point of Contact: Kath Arroyo [facility] [place] [phone] Services: Basic Care Coordination Services Monitoring and coordination of Rehab/PT Services Direct communication to referring provider Care management, if appropriate Plan: Continue with authorization, scheduling, and coordination of care. /nichelle/ Kath Arroyo RN, MSN [facility] Signed: 12/27/2024 14:40 KATH ARROYO [facility]
--- OUTSIDE RECORDS SUMMARY | 2024-12-28 06:27 | XMS_ITS | Continuity of Care Document ---
Author Name [facility] Organization [facility] Care Team Providers Care Canal Driver Name Role Phone [facility] Unavailable Unavailable Problems Combined list of problems from Department of Defense and Veterans Affairs facilities. It does not include entries that were removed or entered in error. Problem Status Onset Date Problem Type Date of Resolution Comments Source Allergic rhinitis Active Condition [place] [facility] Bilateral tinnitus Active Condition [place] [facility] BPH - benign prostatic hyperplasia Active Condition [place] [facility] Cardiac pacemaker in situ Active Condition [place] [facility] Cardiomyopathy Active Condition [place] [facility] Carotid artery narrowing Active Condition Mar 07, 2021 Entered By: TATO BARRAZA Comment: 50-60% bilaterally [place] [facility] Cerebrovascular accident Active Condition Mar 07, 2021 Entered By: TATO BARRAZA Comment: right hemiparesis (COVID) 12/2020 [place] [facility] Chronic congestive heart failure Active Condition Apr 26, 2024 Entered By: TATO BARRAZA Comment: combined [place] [facility] Chronic kidney disease stage 4 Active Condition Apr 26, 2024 Entered By: TATO BARRAZA Comment: hemodialysis T-Th-Sat [place] [facility] CLL - Chronic lymphocytic leukemia (SNOMED CT 38541605) Active Condition [facility] Coronary artery disease (SNOMED CT 33865731) Active Condition [facility] Diabetic nephropathy Active Condition [facility] Diabetic polyneuropathy Active Condition [place] [facility] Exposure to potentially hazardous substance Active Condition [facility] - Gastro-esophageal reflux disease Active Condition [place] [facility] Hearing loss Active Condition [place] [facility] HLD - Hyperlipidemia (SNOMED CT 30144658) Active Condition [facility] HTN - Hypertension (SNOMED CT 75927498) Active Condition [place] [facility] Multiple actinic keratoses involving face Active Condition [place] [facility] Pain of left elbow joint Active Condition [place] [facility] Renal mass Active Condition Dec 31, 2 024 Entered By: TATO BARRAZA Comment: left; 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 [facility] [facility] Sensorineural hearing loss of bilateral ears Active Condition [place] [facility] Sick sinus syndrome Active Condition [place] [facility] TIA Active Condition [place] [facility] Type 2 diabetes mellitus (SNOMED CT 44657646) Active Condition [place] [facility] Acute pancreatitis Inactive Condition 09/04/2020 [place] [facility] Arrhythmia * (ICD-9-CM 427.9) Inactive Condition 07/04/2016 [place] [facility] Family History of Diabetes Mellitus (ICD-9-CM V18.0) Inactive Condition 07/04/2016 [place] [facility] Hypertensive disorder (SNOMED CT 08337266) Inactive Condition 07/04/2016 [facility] Laboratory Examination Ordered as part of a Routine General Medical Examination Inactive Condition 07/04/2016 [facility] Routine General Medical Examination at a Health Care Facility * Inactive Condition 07/04/2016 [facility] Diagnosis: ICD-10-CM 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 diabetes mellitus with unspecified complications Active Diagnosis [facility] Diagnosis: ICD-10-CM Z46.1 Encounter for fitting and adjustment of hearing aid Active Diagnosis [place] [facility] Diagnosis: ICD-10-CM R09.81 Nasal congestion Active Diagnosis [facility] Diagnosis: ICD-10-CM I50.9 Heart failure, unspecified Active Diagnosis [facility] Diagnosis: ICD-10-CM E78.5 Hyperlipidemia, unspecified Active Diagnosis [facility] Diagnosis: ICD-10-CM R93.89 Abnormal findings on dx imaging of oth body structures Active Diagnosis [facility] Diagnosis: ICD-10-CM H90.3 Sensorineural hearing loss, bilateral Active Diagnosis [place] [facility] Diagnosis: ICD-10-CM Z13.9 Encounter for screening, unspecified Active Diagnosis [place] [facility] Diagnosis: ICD-10-CM Z13.5 Encounter for screening for eye and ear disorders Active Diagnosis [facility] Diagnosis: ICD-10-CM 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 Diagnosis [facility] Diagnosis: ICD-10-CM Z71.89 Other specified counseling Active Diagnosis [facility] Diagnosis: ICD-10-CM H90.5 Unspecified sensorineural hearing loss Active Diagnosis [facility] Diagnosis: ICD-10-CM R10.9 Unspecified abdominal pain Active Diagnosis [facility] Diagnosis: ICD-10-CM I73.89 Other specified peripheral vascular diseases Active Diagnosis [facility] Diagnosis: ICD-10-CM E87.5 Hyperkalemia Active Diagnosis [place] [facility] Medications Combined list of outpatient medications [...] A DAY ORAL ACTIVE TATO BARRAZA 2023 [facility] ATORVASTATI N CA 80MG TAB TAKE ONE TABLET BY MOUTH EVERY EVENING FOR HIGH CHOLESTE ROL TAKE ORALLY WITH EVENING MEAL ORAL ACTIVE 04/27/2025 [id number] 5 RADHA PINK [address] [place] [address] [facility] CARVEDILOL 6.25MG TAB TAKE ONE TABLET BY MOUTH TWICE A DAY FOR HEART FAILURE TAKE WITH FOOD. ORAL ACTIVE 12/23/2025 [id number] 5 ALF BARRAZAMY [address] [place] [address] [facility] CARVEDILOL 6.25MG TAB TAKE ONE-HALF TABLET BY MOUTH TWICE A DAY FOR HEART FAILURE TAKE WITH FOOD. ORAL DISCONT INUED (EDIT) 04/27/2025 [id number] 5 CHRISTI, TATO [address] [place] [address] [facility] CHOLECALCIF ZULEYKA 50MCG (2,000UNIT) TAB TAKE TWO TABLETS BY MOUTH ONCE A DAY FOR VITAMIN D SUPPLEME NTATION ORAL ACTIVE 04/27/2025 [id number] CHRISTIALF LAROSEMY 2023 180 [facility] CHOLECALCIF ZULEYKA 50MCG (2,000UNIT) TAB TAKE TWO TABLETS BY MOUTH ONCE A DAY FOR VITAMIN D SUPPLEME NTATION ORAL DISCONT INUED 04/07/2024 [id number] JENY GAMA 2022 180 [place] [facility] CLOPIDOGREL BISULFATE 75MG TAB TAKE ONE TABLET BY MOUTH ONCE A DAY TO THIN BLOOD ORAL 02/06/2024 [id number] 4 CHRISTITATO 2022 90 [facility] DICLOFENAC NA 1% GEL,TOP APPLY 2 GM TO AFFECTED AREA(S) ONCE A DAY FOR PAIN/INF LAMMATIO N; NOT MORE THAN 16 GRAMS DAILY TO ANY LOWER EXTREMIT Y JOINT. NOT MORE THAN 8 GRAMS DAILY TO ANY UPPER EXTREMIT Y JOINT. MAX 32GM/DAY OVER ALL JOINTS. (MEASURE DOSE WITH RULER ATTACHED INSIDE BOX) TOPICA L ACTIVE 04/27/2025 [id number] 5 TATO BARRAZA 2023 300 [facility] FINASTERIDE 5MG TAB TAKE ONE TABLET BY MOUTH ONCE A DAY SWALLOW WHOLE, DO NOT CRUSH, SPLIT, OR CHEW. ORAL ACTIVE 09/18/2025 [id number] RADHA PINK 2024 90 [facility] FINASTERIDE 5MG TAB TAKE ONE TABLET BY MOUTH ONCE A DAY SWALLOW WHOLE, DO NOT CRUSH, SPLIT, OR CHEW. ORAL DISCONT INUED 08/20/2024 [id number] 4 CHRISTITATO 2023 90 [facility] FISH OIL 1000MG (500MG DHA/EPA) CAP,ORAL TAKE 2 CAPSULES BY MOUTH TWICE A DAY WITH MEALS ORAL ACTIVE RADHA PINK 2023 [facility] FLUTICASONE PROPIONATE 50MCG/SPRAY SOLN,NASAL, 16GM INSTILL 1 SPRAY IN NOSTRIL( S) ONCE A DAY FOR ALLERGIE S (MUST BE USED DIRECTED FOR MINIMUM OF 21 DAYS TO PROVIDE ADEQUATE BENEFITS ) NASAL ACTIVE 09/18/2025 [id number] 5 RADHA PINK 2024 3 [facility] FLUTICASONE PROPIONATE 50MCG/SPRAY SOLN,NASAL, 16GM INSTILL 1 SPRAY IN NOSTRIL( S) ONCE A DAY FOR ALLERGIE S (MUST BE USED DIRECTED FOR MINIMUM OF 21 DAYS TO PROVIDE ADEQUATE BENEFITS ) NASAL DISCONT INUED 08/20/2024 [id number] TATO BARRAZA 2023 3 [facility] FOLIC ACID 1MG TAB TAKE ONE TABLET BY MOUTH ONCE A DAY FOR FOLIC ACID SUPPLEME NTATION ORAL ACTIVE 06/08/2025 [id number] 5 RADHA PINK 2023 100 [facility] FUROSEMIDE 40MG TAB TAKE ONE TABLET BY MOUTH EVERY MORNING FOR FLUID RETENTIO N (EDEMA) TAKE DAILY EXCEPT DIALYSIS DAYS ORAL DISCONT INUED (EDIT) 04/27/2025 [id number] RADHA PINK 2023 90 [facility] FUROSEMIDE 80MG TAB TAKE ONE TABLET BY MOUTH TWICE A DAY FOR FLUID RETENTIO N (EDEMA) TAKE DAILY EXCEPT DIALYSIS DAYS ONLY ON NONDIALY SIS DAYS (FRIDAY, , FRIDAY, FRIDAY ORAL DISCONT INUED BY PROVIDE R 04/27/2025 [id number] TATO BARRAZA 2023 180 [facility] INSULIN REG HUMAN 100 U/ML INJ NOVOLIN R INJECT 15 UNITS UNDER THE SKIN THREE TIMES A DAY BEFORE MEALS FOR DIABETES ADMINIST ER 30 MINUTES BEFORE FOOD DIRECTED . DISCARD 30 DAYS AFTER OPENING. SUBCUT ANEOUS ACTIVE 09/18/2025 [id number] RADHA PINK 2024 5 [facility] INSULIN REG HUMAN 100 U/ML INJ NOVOLIN R INJECT 10 UNITS UNDER THE SKIN EVERY MORNING BEFORE A MEAL FOR DIABETES ADMINIST ER 30 MINUTES BEFORE FOOD DIRECTED . DISCARD 30 DAYS AFTER OPENING. PER SLIDING SCALE ADMINIST ER 30 MINUTES BEFORE FOOD DIRECTED . DISCARD 30 DAYS AFTER OPENING. PER SLIDING SCALE SUBCUT ANEOUS 04/25/2024 [id number] 4 RADHA PINK 2023 5 [facility] INSULIN,GLA RGINE,HUMAN 100 UNT/ML INJ INJECT 50 UNITS UNDER THE SKIN EVERY MORNING FOR DIABETES (AT SAME TIME EACH DAY) - (DISCARD ANY UNUSED PORTION 28 DAYS AFTER OPENING) ### SUBCUT ANEOUS ACTIVE 09/18/2025 [id number] 5 RADHA PINK 2024 5 [facility] INSULIN,GLA RGINE,HUMAN 100 UNT/ML INJ INJECT 10 UNITS UNDER THE SKIN EVERY MORNING FOR DIABETES (AT SAME TIME EACH DAY) - (DISCARD ANY UNUSED PORTION 28 DAYS AFTER OPENING) SUBCUT ANEOUS DISCONT INUED (EDIT) 09/09/2025 [id number] 5 RADHA PINK 2024 5 [facility] INSULIN,GLA RGINE,HUMAN 100 UNT/ML INJ INJECT 40 UNITS UNDER THE SKIN EVERY MORNING FOR DIABETES (AT SAME TIME EACH DAY) - (DISCARD ANY UNUSED PORTION 28 DAYS AFTER OPENING) SUBCUT ANEOUS DISCONT INUED (EDIT) 04/27/2025 [id number] 4 TATO BARRAZA 2023 5 [facility] INSULIN,GLA RGINE-YFGN 100UNIT/ML INJ INJECT 35 UNITS UNDER THE SKIN EVERY MORNING FOR DIABETES (AT SAME TIME EACH DAY) - (DISCARD ANY UNUSED PORTION 28 DAYS AFTER OPENING) SUBCUT ANEOUS 04/24/2024 [id number] 4 TATO BARRAZA 2022 6 [facility] ISOSORBIDE MONONITRATE 120MG TAB,SA TAKE ONE TABLET BY MOUTH ONCE A DAY TAKE ON EMPTY STOMACH. SWALLOW WHOLE. DO NOT CRUSH OR CHEW. ORAL DISCONT INUED (EDIT) 09/25/2024 [id number] 4 RAQUEL MARTINEZ 2023 90 [place] [facility] ISOSORBIDE MONONITRATE 30MG TAB,SA TAKE ONE TABLET BY MOUTH ONCE A DAY FOR CHEST PAIN TAKE ON EMPTY STOMACH. SWALLOW WHOLE. DO NOT CRUSH OR CHEW. ORAL ACTIVE 04/27/2025 [id number] TATO BARRAZA 2023 90 [facility] LORATADINE 10MG TAB TAKE ONE TABLET BY MOUTH ONCE A DAY ON EMPTY STOMACH FOR ALLERGIE S ORAL DISCONT INUED 07/25/2024 [id number] 4 [facility], TATO [address] [place] [address] [facility] LORATADINE 10MG TAB TAKE ONE TABLET BY MOUTH ONCE A DAY ON EMPTY STOMACH FOR ALLERGIE S ORAL DISCONT INUED 05/25/2024 [id number] 4 CHRISTI, TATO [address] [place] [address] [facility] LORATADINE 10MG TAB TAKE ONE TABLET BY MOUTH ONCE A DAY ON EMPTY STOMACH FOR ALLERGIE S ORAL DISCONT INUED 02/06/2024 [id number] 4 CHRISTI, TATO [address] [place] [address] [facility] LORATADINE 10MG TAB TAKE ONE TABLET BY MOUTH ONCE A DAY ON EMPTY STOMACH FOR ALLERGIE S ORAL 12/08/2024 [id number] CHRISTI TATO [address] [place] [address] [facility] MAGNESIUM OXIDE 400MG TAB TAKE ONE TABLET BY MOUTH ONCE A DAY FOR DIETARY MAGNESIU M SUPPLEME NTATION ORAL 04/07/2024 [id number] JENY GAMA 2022 120 [place] [facility] METOPROLOL TARTRATE 25MG TAB TAKE ONE TABLET BY MOUTH TWICE A DAY TAKE WITH OR IMMEDIAT JACKI FOLLOWIN G FOOD. ORAL DISCONT INUED BY PROVIDE R 11/13/2024 [id number] Sharon EL USSAIN 2023 180 [place] [facility] NIFEDIPINE (EQV-CC) 60MG TAB,SA TAKE ONE TABLET BY MOUTH ONCE A DAY FOR HIGH BLOOD PRESSURE PREFERAB LE TO TAKE ON EMPTY STOMACH. SWALLOW WHOLE; DO NOT CRUSH OR CHEW. AVOIDGRA PEFRUIT JUICE. ORAL 08/20/2024 [id number] 4 CHRISTI, TATO [address] [place] [address] [facility] NITROGLYCER IN 0.4MG TAB,SUBLING UAL DISSOLVE ONE TABLET UNDER THE TONGUE ONE-TIME FOR CHEST PAIN NEEDED; IF NO IMPROVEM ENT AFTER FIRST DOSE CALL 9-1-1. MAY TAKE 2 ADDITION AL DOSES, 5 MINUTES APART SUBLIN GUAL ACTIVE 04/20/2025 [id number] 5 CHRISTI, TATO 2023 100 [place] [facility] OLANZAPINE 10MG TAB TAKE ONE-HALF TABLET BY MOUTH AT BEDTIME NEEDED FOR ANXIETY ORAL ACTIVE 04/27/2025 [id number] CHRISTI, TATO 2023 90 [place] [facility] PANTOPRAZOL E NA 40MG TAB,EC TAKE ONE TABLET BY MOUTH EVERY MORNING BEFORE A MEAL FOR GASTROES OPHAGEAL REFLUX DISEASE TAKE 30 MINUTES BEFORE MEAL(S) ORAL ACTIVE 12/23/2025 [id number] 5 CHRISTI, TATO 2024 90 [place] [facility] SEVELAMER CARBONATE 800MG TAB TAKE ONE TABLET BY MOUTH THREE TIMES A DAY WITH MEAL(S) TAKE WITH FOOD. ORAL ACTIVE 04/24/2025 [id number] 5 TREVER MCRAE 2023 90 [place] [facility] SODIUM ZIRCONIUM CYCLOSILICA TE 10GM/PKT PWDR,RENST- ORAL MIX AND DRINK 10GM/PKT BY MOUTH EVERY OTHER DAY FOR 90 DAYS FOR HIGH POTASSIU M DISSOLVE IN WATER ORAL DISCONT INUED BY GLORIA R 06/30/2024 [id number] 4 Antonio JOHNSON 2023 30 [place] [facility] TAMSULOSIN HCL 0.4MG CAP TAKE TWO CAPSULES BY MOUTH EVERY EVENING APPROXIM ATELY 30 MINUTES AFTER THE SAME MEAL EACH DAY (FOR PROSTATE ) ORAL ACTIVE 03/20/2025 [id number] 5 RADHA PINK 2023 180 [place] [facility] TAMSULOSIN HCL 0.4MG CAP TAKE TWO CAPSULES BY MOUTH EVERY EVENING APPROXIM ATELY 30 MINUTES AFTER THE SAME MEAL EACH DAY (FOR PROSTATE ) ORAL DISCONT INUED 04/07/2024 [id number] 4 JENY GAMA 2022 180 [place] [facility] TORSEMIDE 100MG TAB TAKE ONE TABLET BY MOUTH DIRECTED ON NON-DIAL YSIS DAYS (FRIDAY, , FRIDAY, AND FRIDAY) ORAL ACTIVE 09/14/2025 [id number] THORTREVER BRO 2024 52 [place] [facility] Allergies, Adverse Reactions, Alerts Combined list of allergies from Department of [facility] and Veterans Affairs facilities. It does not include entries that were removed or entered in error. Substance Category Reaction Severity Reaction type Status Date Reported Comments Source ALLOPURINOL Propensity to adverse reactions to drug (finding) Eruption active 8 [facility] CONTRAST MEDIA Propensity to adverse reactions to drug (finding) Eruption active 3 [facility] FLOMAX Propensity to adverse reactions to drug (finding) Chill, Finding of vomiting, Diarrhea, Weakness present active 8 [facility] METFORMIN Propensity to adverse reactions to drug (finding) NAUSEA,VO MITING active 3 [facility] Immunizations Combined list of available immunizations from the Department of [facility] and [facility] facilities. Immunization Series Date Given Administered By Site Reaction Lot Number CVX Code Drug Bead Wire Insulator Status Comments Source PNEUMOCOCCAL POLYSACCHARID E PPV23 2020 33 complet ed [facility] ZOSTER RECOMBINANT 2 2020 187 complet ed [facility] ZOSTER RECOMBINANT 1 2020 187 complet ed [facility] PNEUMOCOCCAL CONJUGATE PCV 13 2020 133 complet ed [facility] TDAP 2020 115 complet ed [facility] COVID-19 (PFIZER), MRNA, LNP-S, PF, 30 MCG/0.3 ML DOSE 2 2020 208 complet ed [facility] COVID-19 (PFIZER), MRNA, LNP-S, PF, 30 MCG/0.3 ML DOSE 1 2020 208 complet ed [facility] COVID-19 (PFIZER), MRNA, LNP-S, PF, 30 MCG/0.3 ML DOSE 1 2020 208 complet ed HISTORICA L INFORMATI ON - FROM OTHER REGISTRY, [facility] PNEUMOCOCCAL CONJUGATE PCV 13 1 2015 133 complet ed HISTORICA L INFORMATI ON - FROM OTHER REGISTRY, [facility] INFLUENZA, UNSPECIFIED FORMULATION 2013 88 complet ed [facility] INFLUENZA, UNSPECIFIED FORMULATION 2011 88 complet ed [facility] TD(ADULT) UNSPECIFIED FORMULATION 2004 139 complet ed [facility] INFLUENZA (HISTORICAL) 2003 88 complet ed [facility] INFLUENZA (HISTORICAL) 2002 88 complet ed [facility] Results Combined list of recent chemistry, hematology and other laboratory results from Department of Defense and Veterans Affairs, ranging from 15 months to all on record, depending upon the facility. Order Name Results Value Reference Range Date Interpretation Specimen Comments Source CBC LEUKOCYTES [#/VOLUME] IN BLOOD BY AUTOMATED COUNT 59.9 10*3/uL 3.6 - 11.2 12/01 H Specimen Type: BLOOD No comment entered. Ordering Provider: TATO BARRAZA Report Released Date/Time : Dec 09, 2023 10:52 AM Reporting Lab: [place] [facility] [address] [place] [address] Performin g Lab: [place] [facility] [address] [place] [address] [facility] CBC ERYTHROCYTE S [#/VOLUME] IN BLOOD BY AUTOMATED COUNT 3.15 10*6/uL 4.10 - 5.70 12/01 L Specimen Type: BLOOD No comment entered. Ordering Provider: TATO BARRAZA Report Released Date/Time : Dec 09, 2023 10:52 AM Reporting Lab: [place] [facility] [address] [place] [address] Performin g Lab: [place] [facility] [address] [place] [address] [facility] CBC HEMOGLOBIN [MASS/VOLUM E] IN BLOOD 9.6 g/dL 13.1 - 16.8 12/01 L Specimen Type: BLOOD No comment entered. Ordering Provider: TATO BARRAZA Report Released Date/Time : Dec 09, 2023 10:52 AM Reporting Lab: [place] [facility] [address] [place] [address] Performin g Lab: [place] [facility] [address] [place] [address] [facility] CBC HEMATOCRIT [VOLUME FRACTION] OF BLOOD 31.9 38.2 - 48.4 12/01 L Specimen Type: BLOOD No comment entered. Ordering Provider: TATO BARRAZA Report Released Date/Time : Dec 09, 2023 10:52 AM Reporting Lab: [place] [facility] [address] [place] [address] Performin g Lab: [place] [facility] [address] [place] [address] [facility] CBC MCV [ENTITIC VOLUME] BY AUTOMATED COUNT 101.3 fL 80.0 - 100.0 12/01 H Specimen Type: BLOOD No comment entered. Ordering Provider: TATO BARRAZA Report Released Date/Time : Dec 09, 2023 10:52 AM Reporting Lab: [place] [facility] [address] [place] [address] Performin g Lab: [place] [facility] [address] [place] [address] [facility] CBC MCH [ENTITIC MASS] BY AUTOMATED COUNT 30.5 pg 27.0 - 34.0 12/01 Specimen Type: BLOOD No comment entered. Ordering Provider: TATO BARRAZA Report Released Date/Time : Dec 09, 2023 10:52 AM Reporting Lab: [place] [facility] [address] [place] [address] Performin g Lab: [place] [facility] [address] [place] [address] [facility] CBC MCHC [MASS/VOLUM E] BY AUTOMATED COUNT 30.1 g/dL 33.0 - 36.0 12/01 L Specimen Type: BLOOD No comment entered. Ordering Provider: TATO BARRAZA Report Released Date/Time : Dec 09, 2023 10:52 AM Reporting Lab: [place] [facility] [address] [place] [address] Performin g Lab: [place] [facility] [address] [place] [address] [facility] CBC PLATELETS [#/VOLUME] IN BLOOD BY AUTOMATED COUNT 100 10*3/uL 150 - 400 12/01 L Specimen Type: BLOOD No comment entered. Ordering Provider: TATO BARRAZA Report Released Date/Time : Dec 09, 2023 10:52 AM Reporting Lab: [place] [facility] [address] [place] [address] Performin g Lab: [place] [facility] [address] [place] [address] [facility] CBC PLATELET MEAN VOLUME [ENTITIC VOLUME] IN BLOOD BY AUTOMATED COUNT 9.2 fL 7.5 - 11.2 12/01 Specimen Type: BLOOD No comment entered. Ordering Provider: TATO BARRAZA Report Released Date/Time : Dec 09, 2023 10:52 AM Reporting Lab: [place] [facility] [address] [place] [address] Performin g Lab: [place] [facility] [address] [place] [address] [facility] CBC SEGMENTED NEUTROPHILS /100 LEUKOCYTES IN BLOOD BY MANUAL COUNT 5 12/01 Specimen Type: BLOOD No comment entered. Ordering Provider: TATO BARRAZA Report Released Date/Time : Dec 09, 2023 10:52 AM Reporting Lab: [place] [facility] [address] [place] [address] Performin g Lab: [place] [facility] [address] [place] [address] [facility] CBC MONOCYTES/1 00 LEUKOCYTES IN BLOOD BY AUTOMATED COUNT 1 12/01 Specimen Type: BLOOD No comment entered. Ordering Provider: TATO BARRAZA Report Released Date/Time : Dec 09, 2023 10:52 AM Reporting Lab: [place] [facility] [address] [place] [address] Performin g Lab: [place] [facility] [address] [place] [address] [facility] CBC PLATELET ADEQUACY [PRESENCE] IN BLOOD BY LIGHT MICROSCOPY DECREASED 12/01 Specimen Type: BLOOD No comment entered. Ordering Provider: TATO BARRAZA Report Released Date/Time : Dec 09, 2023 10:52 AM Reporting Lab: [place] [facility] [address] [place] [address] Performin g Lab: [place] [facility] [address] [place] [address] [facility] CBC ANISOCYTOSI S [PRESENCE] IN BLOOD BY LIGHT MICROSCOPY 1+ 12/01 Specimen Type: BLOOD No comment entered. Ordering Provider: TATO BARRAZA Report Released Date/Time : Dec 09, 2023 10:52 AM Reporting Lab: [place] [facility] [address] [place] [address] Performin g Lab: [place] [facility] [address] [place] [address] [facility] CBC SMUDGE CELLS [PRESENCE] IN BLOOD BY LIGHT MICROSCOPY 1+ 12/01 Specimen Type: BLOOD No comment entered. Ordering Provider: TATO BARRAZA Report Released Date/Time : Dec 09, 2023 10:52 AM Reporting Lab: [place] [facility] [address] [place] [address] Performin g Lab: [place] [facility] [address] [place] [phone] [facility] CBC ERYTHROCYTE DISTRIBUTIO N WIDTH [RATIO] BY AUTOMATED COUNT 18.4 11.8 - 15.1 12/01 H Specimen Type: BLOOD No comment entered. Ordering Provider: TATO BARRAZA Report Released Date/Time : Dec 09, 2023 10:52 AM Reporting Lab: [place] [facility] [address] [place] [address] Performin g Lab: [place] [facility] [address] [place] [phone] [facility] CBC LYMPHOCYTES /100 LEUKOCYTES IN BLOOD BY MANUAL COUNT 70 12/01 Specimen Type: BLOOD No comment entered. Ordering Provider: TATO BARRAZA Report Released Date/Time : Dec 09, 2023 10:52 AM Reporting Lab: [place] [facility] [address] [place] [phone] Performin g Lab: [place] [facility] [address] [place] [address] [facility] CBC LYMPHOCYTES /100 LEUKOCYTES IN BLOOD BY AUTOMATED COUNT 94.2 12/01 Specimen Type: BLOOD No comment entered. Ordering Provider: TATO BARRAZA Report Released Date/Time : Dec 09, 2023 10:52 AM Reporting Lab: [place] [facility] [address] [place] [address] 8 [facility]: [place] [facility] [address] [place] [address] 8 [facility] CBC MONOCYTES/1 00 LEUKOCYTES IN BLOOD BY AUTOMATED COUNT 1.6 12/01 Specimen Type: BLOOD No comment entered. Ordering Provider: TATO BARRAZA Report Released Date/Time : Dec 09, 2023 10:52 AM Reporting Lab: [place] [facility] [address] [place] [address] 8 [facility]: [place] [facility] [address] [place] [address] 8 [facility] CBC NEUTROPHILS /100 LEUKOCYTES IN BLOOD BY AUTOMATED COUNT 3.5 12/01 Specimen Type: BLOOD No comment entered. Ordering Provider: TATO BARRAZA Report Released Date/Time : Dec 09, 2023 10:52 AM Reporting Lab: [place] [facility] [address] [place] [address] 8 [facility]: [place] [facility] [address] [place] [address] 8 [facility] CBC EOSINOPHILS /100 LEUKOCYTES IN BLOOD BY AUTOMATED COUNT 0.5 12/01 Specimen Type: BLOOD No comment entered. Ordering Provider: TATO BARRAZA Report Released Date/Time : Dec 09, 2023 10:52 AM Reporting Lab: [place] [facility] [address] [place] [address] 8 [facility]: [place] [facility] [address] [place] [address] 8 [facility] CBC BASOPHILS/1 00 LEUKOCYTES IN BLOOD BY AUTOMATED COUNT 0.1 12/01 Specimen Type: BLOOD No comment entered. Ordering Provider: TATO BARRAZA Report Released Date/Time : Dec 09, 2023 10:52 AM Reporting Lab: [place] [facility] [address] [place] [address] 8 [facility]: [place] [facility] [address] [place] [address] 8 [facility] CBC LYMPHOCYTES [#/VOLUME] IN BLOOD BY AUTOMATED COUNT 56.46 10*3/uL 0.77 - 4.50 12/01 H Specimen Type: BLOOD No comment entered. Ordering Provider: TATO BARRAZA Report Released Date/Time : Dec 09, 2023 10:52 AM Reporting Lab: [place] [facility] [address] [place] [address] 8 [facility]: [place] [facility] [address] [place] [address] 8 [facility] CBC MONOCYTES [#/VOLUME] IN BLOOD BY AUTOMATED COUNT 0.97 10*3/uL 0.19 - 0.8 12/01 H Specimen Type: BLOOD No comment entered. Ordering Provider: TATO BARRAZA Report Released Date/Time : Dec 09, 2023 10:52 AM Reporting Lab: [place] [facility] [address] [place] [address] 8 [facility]: [place] [facility] [address] [place] [address] 8 [facility] CBC NEUTROPHILS [#/VOLUME] IN BLOOD BY AUTOMATED COUNT 2.12 10*3/uL 2.10 - 8.00 12/01 Specimen Type: BLOOD No comment entered. Ordering Provider: TATO BARRAZA Report Released Date/Time : Dec 09, 2023 10:52 AM Reporting Lab: [place] [facility] [address] [place] [address] 8 [facility]: [place] [facility] [address] [place] [address] 8 [facility] CBC EOSINOPHILS [#/VOLUME] IN BLOOD BY AUTOMATED COUNT 0.27 10*3/uL 0.00 - 0.60 12/01 Specimen Type: BLOOD No comment entered. Ordering Provider: TATO BARRAZA Report Released Date/Time : Dec 09, 2023 10:52 AM Reporting Lab: [place] [facility] [address] [place] [address] 8 [facility]: [place] [facility] [address] [place] [address] 8 [facility] CBC BASOPHILS [#/VOLUME] IN BLOOD BY AUTOMATED COUNT 0.04 10*3/uL 0.00 - 0.20 12/01 Specimen Type: BLOOD No comment entered. Ordering Provider: TATO BARRAZA Report Released Date/Time : Dec 09, 2023 10:52 AM Reporting Lab: [place] [facility] [address] [place] [address] 8 [facility]: [place] [facility] [address] [place] [address] 8 [facility] CBC VARIANT LYMPHOCYTES /100 LEUKOCYTES IN BLOOD BY MANUAL COUNT 24 12/01 Specimen Type: BLOOD No comment entered. Ordering Provider: TATO BARRAZA Report Released Date/Time : Dec 09, 2023 10:52 AM Reporting Lab: [place] [facility] [address] [place] [address] 8 [facility]: [place] [facility] [address] [place] [address] 8 [facility] CBC PLATELETS RETICULATED /100 PLATELETS IN BLOOD BY AUTOMATED COUNT 1.8 1.0 - 7.0 12/01 Specimen Type: BLOOD No comment entered. Ordering Provider: TATO BARRAZA Report Released Date/Time : Dec 09, 2023 10:52 AM Reporting Lab: [place] [facility] [address] [place] [address] 8 [facility]: [place] [facility] [address] [place] [address] 8 [facility] CBC IMMATURE GRANULOCYTE S/100 LEUKOCYTES IN BLOOD BY AUTOMATED COUNT 0.1 12/01 Specimen Type: BLOOD No comment entered. Ordering Provider: TATO BARRAZA Report Released Date/Time : Dec 09, 2023 10:52 AM Reporting Lab: [place] [facility] [address] [place] [address] 8 [facility]: [place] [facility] [address] [place] [address] 8 [facility] CBC IMMATURE GRANULOCYTE S [#/VOLUME] IN BLOOD BY AUTOMATED COUNT 0.07 10*3/uL 0.00 - 0.05 12/01 H Specimen Type: BLOOD No comment entered. Ordering Provider: TATO BARRAZA Report Released Date/Time : Dec 09, 2023 10:52 AM Reporting Lab: [place] [facility] [address] [place] [address] 8 [facility]: [place] [facility] [address] [place] [address] 8 [facility] CBC MANUAL DIFFERENTIA L COMMENT [INTERPRETA TION] IN BLOOD NARRATIVE NO 12/01 Specimen Type: BLOOD No comment entered. Ordering Provider: TATO BARRAZA Report Released Date/Time : Dec 09, 2023 10:52 AM Reporting Lab: [place] [facility] [address] [place] [address] 8 [facility]: [place] [facility] [address] [place] [address] 8 [facility] CBC MANUAL DIFFERENTIA L PERFORMED [PRESENCE] IN BLOOD 0.00 10*3/uL 0.00 12/01 Specimen Type: BLOOD No comment entered. Ordering Provider: TATO BARRAZA Report Released Date/Time : Dec 09, 2023 10:52 AM Reporting Lab: [place] [facility] [address] [place] [address] 8 [facility]: [place] [facility] [address] [place] [address] 8 [facility] CBC MONOCYTES [#/VOLUME] IN BLOOD BY MANUAL COUNT 0.60 10*3/uL 0.19 - 0.8 12/01 Specimen Type: BLOOD No comment entered. Ordering Provider: TATO BARRAZA Report Released Date/Time : Dec 09, 2023 10:52 AM Reporting Lab: [place] [facility] [address] [place] [address] 8 [facility]: [place] [facility] [address] [place] [address] 8 [facility] CBC LYMPHOCYTES [#/VOLUME] IN BLOOD BY MANUAL COUNT 41.93 10*3/uL 0.77 - 4.50 12/01 H Specimen Type: BLOOD No comment entered. Ordering Provider: TATO BARRAZA Report Released Date/Time : Dec 09, 2023 10:52 AM Reporting Lab: [place] [facility] [address] [place] [address] 8 [facility]: [place] [facility] [address] [place] [address] 8 [facility] CBC NEUTROPHILS [#/VOLUME] IN BLOOD BY MANUAL COUNT 3.00 10*3/uL 2.10 - 8.00 12/01 Specimen Type: BLOOD No comment entered. Ordering Provider: TATO BARRAZA Report Released Date/Time : Dec 09, 2023 10:52 AM Reporting Lab: [place] [facility] [address] [place] [address] 8 [facility]: [place] [facility] [address] [place] [address] 8 [facility] CHOLESTERO L PANEL (PB) CHOLESTEROL [MASS/VOLUM E] IN SERUM OR PLASMA 84 mg/dL 0 - 200 12/01 Specimen Type: PLASMA No comment entered. Ordering Provider: TATO BARRAZA Report Released Date/Time : Dec 09, 2023 10:52 AM Reporting Lab: [place] [facility] [address] [place] [address] 8 [facility]: [place] [facility] [address] [place] [address] 8 [facility] CHOLESTERO L PANEL (PB) TRIGLYCERID E [MASS/VOLUM E] IN SERUM OR PLASMA 103 mg/dL 0 - 150 12/01 Specimen Type: PLASMA No comment entered. Ordering Provider: TATO BARRAZA Report Released Date/Time : Dec 09, 2023 10:52 AM Reporting Lab: [place] [facility] [address] [place] [address] 8 [facility]: [place] [facility] [address] [place] [address] 8 [facility] CHOLESTERO L PANEL (PB) CHOLESTEROL IN LDL [MASS/VOLUM E] IN SERUM OR PLASMA BY CALCULATION 27.9 mg/dL 12/01 Specimen Type: PLASMA No comment entered. Ordering Provider: TATO BARRAZA Report Released Date/Time : Dec 09, 2023 10:52 AM Reporting Lab: [place] [facility] [address] [place] [address] 8 [facility]: [place] [facility] [address] [place] [address] 8 [facility] CHOLESTERO L PANEL (PB) CHOLESTEROL IN HDL [MASS/VOLUM E] IN SERUM OR PLASMA 35.5 mg/dL 40 12/01 L Specimen Type: PLASMA No comment entered. Ordering Provider: TATO BARRAZA Report Released Date/Time : Dec 09, 2023 10:52 AM Reporting Lab: [place] [facility] [address] [place] [address] 8 [facility]: [place] [facility] [address] [place] [address] 8 [facility] CHOLESTERO L PANEL (PB) CHOLESTEROL IN HDL/CHOLEST ZULEYKA.TOTAL [MASS RATIO] IN SERUM OR PLASMA 42.3 25 12/01 Specimen Type: PLASMA No comment entered. Ordering Provider: TATO BARRAZA Report Released Date/Time : Dec 09, 2023 10:52 AM Reporting Lab: [place] [facility] [address] [place] [address] 8 [facility]: [place] [facility] [address] [place] [address] 8 [facility] COMPREHENS ERNST METABOLIC PANEL CREATININE [MASS/VOLUM E] IN SERUM OR PLASMA 3.11 mg/dL 0.7 - 1.3 12/01 H Specimen Type: PLASMA No comment entered. Ordering Provider: TATO BARRAZA Report Released Date/Time : Dec 09, 2023 10:52 AM Reporting Lab: [place] [facility] [address] [place] [address] 8 [facility]: [place] [facility] [address] [place] [address] 8 [facility] COMPREHENS ERNST METABOLIC PANEL UREA NITROGEN [MASS/VOLUM E] IN SERUM OR PLASMA 24 mg/dL 9 - 25 12/01 Specimen Type: PLASMA No comment entered. Ordering Provider: TATO BARRAZA Report Released Date/Time : Dec 09, 2023 10:52 AM Reporting Lab: [place] [facility] [address] [place] [address] 8 [facility]: [place] [facility] [address] [place] [address] 8 [facility] COMPREHENS ERNST METABOLIC PANEL GLUCOSE [MASS/VOLUM E] IN SERUM OR PLASMA 212 mg/dL 72 - 99 12/01 H Specimen Type: PLASMA No comment entered. Ordering Provider: TATO BARRAZA Report Released Date/Time : Dec 09, 2023 10:52 AM Reporting Lab: [place] [facility] [address] [place] [address] 8 [facility]: [place] [facility] [address] [place] [address] 8 [facility] COMPREHENS ERNST METABOLIC PANEL SODIUM [MOLES/VOLU ME] IN SERUM OR PLASMA 137 meq/L 136 - 145 12/01 Specimen Type: PLASMA No comment entered. Ordering Provider: TATO BARRAZA Report Released Date/Time : Dec 09, 2023 10:52 AM Reporting Lab: [place] [facility] [address] [place] [address] 8 [facility]: [place] [facility] [address] [place] [address] 8 [facility] COMPREHENS ERNST METABOLIC PANEL POTASSIUM [MOLES/VOLU ME] IN SERUM OR PLASMA 4.6 meq/L 3.5 - 5 12/01 Specimen Type: PLASMA No comment entered. Ordering Provider: TATO BARRAZA Report Released Date/Time : Dec 09, 2023 10:52 AM Reporting Lab: [place] [facility] [address] [place] [address] 8 [facility]: [place] [facility] [address] [place] [address] 8 [facility] COMPREHENS ERNST METABOLIC PANEL CHLORIDE [MOLES/VOLU ME] IN SERUM OR PLASMA 100 meq/L 98 - 107 12/01 Specimen Type: PLASMA No comment entered. Ordering Provider: TATO BARRAZA Report Released Date/Time : Dec 09, 2023 10:52 AM Reporting Lab: [place] [facility] [address] [place] [address] 8 [facility]: [place] [facility] [address] [place] [address] 8 [facility] COMPREHENS ERNST METABOLIC PANEL CARBON DIOXIDE, TOTAL [MOLES/VOLU ME] IN SERUM OR PLASMA 27 meq/L 22 - 31 12/01 Specimen Type: PLASMA No comment entered. Ordering Provider: TATO BARRAZA Report Released Date/Time : Dec 09, 2023 10:52 AM Reporting Lab: [place] [facility] [address] [place] [address] 8 [facility]: [place] [facility] [address] [place] [address] 8 [facility] COMPREHENS ERNST METABOLIC PANEL CALCIUM [MASS/VOLUM E] IN SERUM OR PLASMA 8.9 mg/dL 8.4 - 10.4 12/01 Specimen Type: PLASMA No comment entered. Ordering Provider: TATO BARRAZA Report Released Date/Time : Dec 09, 2023 10:52 AM Reporting Lab: [place] [facility] [address] [place] [address] 8 [facility]: [place] [facility] [address] [place] [address] 8 [facility] COMPREHENS ERNST METABOLIC PANEL PROTEIN [MASS/VOLUM E] IN SERUM OR PLASMA 6.1 g/dL 6 - 8.6 12/01 Specimen Type: PLASMA No comment entered. Ordering Provider: TATO BARRAZA Report Released Date/Time : Dec 09, 2023 10:52 AM Reporting Lab: [place] [facility] [address] [place] [address] 8 [facility]: [place] [facility] [address] [place] [address] 8 [facility] COMPREHENS ERNST METABOLIC PANEL ALBUMIN [MASS/VOLUM E] IN SERUM OR PLASMA 4.1 g/dL 3.4 - 5 12/01 Specimen Type: PLASMA No comment entered. Ordering Provider: TATO BARRAZA Report Released Date/Time : Dec 09, 2023 10:52 AM Reporting Lab: [place] [facility] [address] [place] [address] 8 [facility]: [place] [facility] [address] [place] [address] 8 [facility] COMPREHENS ERNST METABOLIC PANEL BILIRUBIN.T OTAL [MASS/VOLUM E] IN SERUM OR PLASMA 1.2 mg/dL 0.2 - 1.2 12/01 Specimen Type: PLASMA No comment entered. Ordering Provider: TATO BARRAZA Report Released Date/Time : Dec 09, 2023 10:52 AM Reporting Lab: [place] [facility] [address] [place] [address] 8 [facility]: [place] [facility] [address] [place] [address] 8 [facility] COMPREHENS ERNST METABOLIC PANEL ALKALINE PHOSPHATASE [ENZYMATIC ACTIVITY/VO LUME] IN SERUM OR PLASMA 105 U/L 40 - 150 12/01 Specimen Type: PLASMA No comment entered. Ordering Provider: TATO BARRAZA Report Released Date/Time : Dec 09, 2023 10:52 AM Reporting Lab: [place] [facility] [address] [place] [address] 8 [facility]: [place] [facility] [address] [place] [address] 8 [facility] COMPREHENS ERNST METABOLIC PANEL ASPARTATE AMINOTRANSF ERASE [ENZYMATIC ACTIVITY/VO LUME] IN SERUM OR PLASMA 10 U/L 5 - 34 12/01 Specimen Type: PLASMA No comment entered. Ordering Provider: TATO BARRAZA Report Released Date/Time : Dec 09, 2023 10:52 AM Reporting Lab: [place] [facility] [address] [place] [address] 8 [facility]: [place] [facility] [address] [place] [address] 8 [facility] COMPREHENS ERNST METABOLIC PANEL ALANINE AMINOTRANSF ERASE [ENZYMATIC ACTIVITY/VO LUME] IN SERUM OR PLASMA <7U/L 8 - 40 12/01 L Specimen Type: PLASMA No comment entered. Ordering Provider: TATO BARRAZA Report Released Date/Time : Dec 09, 2023 10:52 AM Reporting Lab: [place] [facility] [address] [place] [address] 8 [facility]: [place] [facility] [address] [place] [address] 8 [facility] COMPREHENS ERNST METABOLIC PANEL GLOMERULAR FILTRATION RATE/1.73 SQ M.PREDICTED [VOLUME RATE/AREA] IN SERUM, PLASMA OR BLOOD BY CREATININE- BASED FORMULA (CKD-EPI 2020) 19 12/01 Specimen Type: PLASMA No comment entered. Ordering Provider: TATO BARRAZA Report Released Date/Time : Dec 09, 2023 10:52 AM Reporting Lab: [place] [facility] [address] [place] [address] 8 [facility]: [place] [facility] [address] [place] [address] 8 [facility] HGA1C HEMOGLOBIN A1C/HEMOGLO BIN.TOTAL IN BLOOD 7.4 4.0 - 6.0 12/01 H Specimen Type: BLOOD No comment entered. Ordering Provider: TATO BARRAZA Report Released Date/Time : Dec 09, 2023 10:52 AM Reporting Lab: [place] [facility] [address] [place] [address] 8 [facility]: [place] [facility] [address] [place] [address] 8 [facility] TSH (MA-PB) THYROTROPIN [UNITS/VOLU ME] IN SERUM OR PLASMA 4.243 u[IU]/mL 0.47 - 5 12/01 Specimen Type: SERUM No comment entered. Ordering Provider: TATO BARRAZA Report Released Date/Time : Dec 09, 2023 10:52 AM Reporting Lab: [place] [facility] [address] [place] [address] 8 [facility]: [place] [facility] [address] [place] [address] 8 [facility] URINE ALBUMIN PROFILE-ih (PB) ALBUMIN [MASS/VOLUM E] IN URINE 417.30 mg/L 12/01 Specimen Type: URINE No comment entered. Ordering Provider: TATO BARRAZA Report Released Date/Time : Dec 09, 2023 10:52 AM Reporting Lab: [place] [facility] [address] [place] [address] 8 [facility]: [place] [facility] [address] [place] [address] 8 [facility] URINE ALBUMIN PROFILE-ih (PB) ALBUMIN/CRE ATININE [MASS RATIO] IN URINE 346.62 mg/g 0 - 30 12/01 H Specimen Type: URINE No comment entered. Ordering Provider: TATO BARRAZA Report Released Date/Time : Dec 09, 2023 10:52 AM Reporting Lab: [place] [facility] [address] [place] [address] 8 [facility]: [place] [facility] [address] [place] [address] 8 [facility] URINE ALBUMIN PROFILE-ih (PB) CREATININE [MASS/VOLUM E] IN URINE 120.39 mg/dL 12/01 Specimen Type: URINE No comment entered. Ordering Provider: TATO BARRAZA Report Released Date/Time : Dec 09, 2023 10:52 AM Reporting Lab: [place] [facility] [address] [place] [address] 8 [facility]: [place] [facility] [address] [place] [address] 8 [facility] B12 COBALAMIN (VITAMIN B12) [MASS/VOLUM E] IN SERUM OR PLASMA 394 pg/mL 213 - 816 09/13 Specimen Type: SERUM No comment entered. Ordering Provider: RADHA PINK Report Released Date/Time : Jun 07, 2024 01:24 PM Reporting Lab: [place] [facility] [address] [place] [address] 8 [facility]: [place] [facility] [address] [place] [address] 8 [facility] FERRITIN FERRITIN [MASS/VOLUM E] IN SERUM OR PLASMA 228 ng/mL 22 - 275 09/13 Specimen Type: SERUM No comment entered. Ordering Provider: RADHA PINK Report Released Date/Time : Jun 07, 2024 01:24 PM Reporting Lab: [place] [facility] [address] [place] [address] 8 [facility]: [place] [facility] [address] [place] [address] 8 [facility] FOLATE (PB) FOLATE [MASS/VOLUM E] IN SERUM OR PLASMA >20.0ng/m L 7 - 20 09/13 H Specimen Type: SERUM No comment entered. Ordering Provider: RADHA PINK Report Released Date/Time : Jun 07, 2024 01:24 PM Reporting Lab: [place] [facility] [address] [place] [address] 8 [facility]: [place] [facility] [address] [place] [address] 8 [facility] IRON/TIBC PROFILE IRON BINDING CAPACITY [MASS/VOLUM E] IN SERUM OR PLASMA 218 ug/dL 09/13 Specimen Type: PLASMA No comment entered. Ordering Provider: RADHA PINK Report Released Date/Time : Jun 07, 2024 01:24 PM Reporting Lab: [place] [facility] [address] [place] [address] Performin g Lab: [place] [facility] [address] [place] [address] [facility] IRON/TIBC PROFILE TRANSFERRIN [MASS/VOLUM E] IN SERUM OR PLASMA 174 mg/dL 163 - 344 09/13 Specimen Type: PLASMA No comment entered. Ordering Provider: RADHA PINK Report Released Date/Time : Jun 07, 2024 01:24 PM Reporting Lab: [place] [facility] [address] [place] [address] Performin g Lab: [place] [facility] [address] [place] [address] [facility] IRON/TIBC PROFILE IRON SATURATION [MASS FRACTION] IN SERUM OR PLASMA 33 20 - 50 09/13 Specimen Type: PLASMA No comment entered. Ordering Provider: RADHA PINK Report Released Date/Time : Jun 07, 2024 01:24 PM Reporting Lab: [place] [facility] [address] [place] [address] Performin g Lab: [place] [facility] [address] [place] [address] [facility] IRON/TIBC PROFILE IRON [MASS/VOLUM E] IN SERUM OR PLASMA 71 ug/dL 65 - 175 09/13 Specimen Type: PLASMA No comment entered. Ordering Provider: RADHA PINK Report Released Date/Time : Jun 07, 2024 01:24 PM Reporting Lab: [place] [facility] [address] [place] [address] Performin g Lab: [place] [facility] [address] [place] [address] [facility] Vital Signs Combined list of inpatient and outpatient Vital Signs from Department of Defense and [employer] Affairs, ranging from 12 months to all on record, depending upon the facility. Vital Sign Value Date Comments Source SYSTOLIC BLOOD PRESSURE 101 12/22/2024 10:59:00 [facility] DIASTOLIC BLOOD PRESSURE 46 12/22/2024 10:59:00 [facility] PULSE OXIMETRY 94 % 12/22/2024 10:59:00 [facility] WEIGHT 230.5 12/22/2024 10:59:00 [facility] BMI 32 kg/m2 12/22/2024 10:59:00 [facility] PAIN 0 12/22/2024 10:59:00 [facility] PULSE 74 12/22/2024 10:59:00 [facility] RESPIRATION 18 12/22/2024 10:59:00 [facility] SYSTOLIC BLOOD PRESSURE 119 08/25/2024 11:23:00 [place] [facility] DIASTOLIC BLOOD PRESSURE 66 08/25/2024 11:23:00 [place] [facility] PULSE OXIMETRY 93 08/25/2024 11:23:00 [place] [facility] WEIGHT 226.9 08/25/2024 11:23:00 [place] [place] [facility] BMI 32 kg/m2 08/25/2024 11:23:00 [place] [place] [facility] HEIGHT 71.0 08/25/2024 11:23:00 [place] [place] [facility] PULSE 84 08/25/2024 11:23:00 [place] [place] [facility] RESPIRATION 18 08/25/2024 11:23:00 [place] [place] [facility] [facility] SYSTOLIC BLOOD PRESSURE 129 04/26/2024 15:00:00 [place] [place] [facility] DIASTOLIC BLOOD PRESSURE 65 04/26/2024 15:00:00 [place] [place] [facility] [facility] PULSE OXIMETRY 95 04/26/2024 15:00:00 [place] [facility] WEIGHT 231.4 04/26/2024 15:00:00 [place] [place] [facility] BMI 32 kg/m2 04/26/2024 15:00:00 [place] [place] [facility] [facility] PAIN 0 04/26/2024 15:00:00 [place] [place] [facility] TEMPERATURE 97.8 04/26/2024 15:00:00 [facility] PULSE 68 04/26/2024 15:00:00 [facility] RESPIRATION 18 04/26/2024 15:00:00 [facility] Encounters Combined list of: 1) Encounters from Department of Veterans Affairs facilities going backup to the last 18 months, not all VA inpatient encounters are included; 2) Encounters from the Department of Defense facilities going backup to 280 months. 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 JANAYANGELLA MCDANIELS R 07/01 [facility] [place] [facility] Outpatient Encounter [id number] TERESA MANRIQUE N 08/20 [place] [facility] [place] [facility] Outpatient Encounter [id number] 09/07 [place] [facility] [place] [facility] Outpatient Encounter [id number] 10/05 [place] [facility] OFFICE O/P EST MOD 30 MIN [id number] Diagnos is: ICD-10- CM R10.9 Unspeci fied abdomin al pain Walter BARRAZA 10/07 [facility] HC PRO PHONE CALL 5-10 MIN [id number] Diagnos is: ICD-10- CM R93.89 Abnorma l finding s on dx imaging of oth body structu res JANAYANGELLA ENEDELIA R 10/08 [facility] Outpatient Encounter [id number] 10/08 [facility] MTMS BY PHARM ADDL 15 MIN [id number] Diagnos is: ICD-10- CM 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 diabete s mellitu s with unspeci fied complic ations Nupur PINK W 10/09 [facility] OFF/OP EST OCTOBER X REQ PHY/QHP [id number] Diagnos is: ICD-10- CM 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 [id number] 11/11 [facility] Outpatient Encounter [id number] [id number] 11/12 [facility] Outpatient Encounter [id number] [id number] 11/19 [facility] Outpatient Encounter [id number] [id number] PRAVEENA BREWER 11/[address] 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 Walter BARRAZA 12/08 [facility] FUNDUS PHOTOGRAPH Y W/I&R [id number] [id number] Diagnos is: ICD-10- CM Z13.5 Encount er for screeni ng for eye and ear disorde MAGDALENO Perez 12/08 [facility] MTMS BY PHARM ADDL 15 MIN [id number] [id number] Diagnos is: ICD-10- CM 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 diabete s mellitu s with unspeci fied complic ations JOESPHNupur SERRANO W 12/08 [facility] [place] [facility] IMG RTA DETC/MNTR DS PHY/QHP [id number] [id number] Diagnos is: ICD-10- CM Z13.9 Encount er for screeni ng, unspeci fied RICOMIGUEL LA S 12/08 [place] [facility] FEE [id number] [id number] Diagnos is: ICD-10- CM H90.3 Sensori neural hearing loss, bilater al MILAD CHOUDHURY A 12/14 [facility] [place] [facility] HEARING AID REPAIR/MOD IFYING [id number] [id number] Diagnos is: ICD-10- CM H90.3 Sensori neural hearing loss, bilater al MILAD CHOUDHURY A 12/[address] [facility] Outpatient Encounter [id number] [id number] 12/21 [facility] Outpatient Encounter [id number] [id number] 12/21 [facility] Outpatient Encounter [id number] [id number] 12/21 [facility] Outpatient Encounter [id number] [id number] ARPITJASON YELENA A 12/22 [facility] Outpatient Encounter [id number] [id number] 12/22 [facility] Outpatient Encounter [id number] [id number] 01/07 [facility] Outpatient Encounter [id number] [id number] 01/07 [facility] Outpatient Encounter [id number] [id number] 01/07 [facility] FEE [id number] [id number] Diagnos is: ICD-10- CM Z46.1 Encount er for fitting and adjustm ent of hearing aid MILAD CHOUDHURY A 01/13 [facility] HEARING AID CHECK BOTH EARS [id number] [id number] Diagnos is: ICD-10- CM Z46.1 Encount er for fitting and adjustm ent of hearing aid MILAD CHOUDHURY A 01/[address] [facility] HC PRO PHONE CALL 5-10 MIN [id number] [id number] Diagnos is: ICD-10- CM R93.89 Abnorma l finding s on dx imaging of oth body structu res ANGELLA GUSTAFSON 01/18 [facility] Outpatient Encounter [id number] [id number] LOUISE LOVING T 01/19 [facility] Outpatient Encounter [id number] [id number] 02/05 [facility] Outpatient Encounter [id number] [id number] 02/08 [facility] Outpatient Encounter [id number] [id number] 02/16 [facility] [place] [facility] Outpatient Encounter [id number] [id number] 02/16 [place] [facility] Outpatient Encounter [id number] [id number] 02/17 [place] [facility] Outpatient Encounter [id number] [id number] 02/23 [facility] Encounter [id number] [id number] 1 02/24 [facility] [place] [facility] Outpatient Encounter [id number] [id number] 02/24 [facility] Encounter [id number] [id number] 03/04 [facility] Outpatient Encounter [id number] [id number] 03/17 [facility] [place] [facility] Outpatient Encounter [id number] [id number] 03/19 [place] [facility] MTMS BY PHARM ADDL 15 MIN [id number] [id number] Diagnos is: ICD-10- CM E78.5 Hyperli pidemia , unspeci fied Nupur PINK W 03/19 [facility] Outpatient Encounter [id number] [id number] 03/23 [facility] Outpatient Encounter [id number] [id number] TREVER LIRIANO N 03/28 [facility] Outpatient Encounter [id number] [id number] 03/31 [facility] [place] [facility] Outpatient Encounter [id number] [id number] 03/31 [place] [facility] Outpatient Encounter [id number] [id number] GLORIA CONSTANTINO 04/06 [place] [facility] Out[facility] Encounter [id number] [id number] 04/08 [facility] Outpatient Encounter [id number] [id number] 04/08 [facility] [place] [facility] Outpatient Encounter [id number] [id number] 04/12 [place] [facility] [place] [facility] Outpatient Encounter [id number] [id number] 04/19 [place] [facility] Outpatient Encounter [id number] [id number] 04/23 [facility] MTMS BY PHARM ADDL 15 MIN [id number] [id number] Diagnos is: ICD-10- CM E78.5 Hyperli pidemia , unspeci fied Nupur PINK DAVONTE W 04/26 [facility] OFFICE O/P EST MOD 30 MIN [id number] [id number] Diagnos is: ICD-10- CM I50.9 Heart failure , unspeci fied Walter BARRAZA 04/26 [facility] Outpatient Encounter [id number] [id number] 05/26 [facility] Encounter [id number] [id number] 06/04 [facility] MTMS BY PHARM ADDL 15 MIN [id number] [id number] Diagnos is: ICD-10- CM 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 diabete s mellitu s with unspeci fied complic ations Nupur PINK DAVONTE W 06/07 [facility] Outpatient Encounter [id number] [id number] 06/07 [facility] Outpatient Encounter [id number] [id number] 06/08 [facility] Out[facility] Encounter [id number] [id number] BARRETT RUSH L 07/05 [facility] Outpatient Encounter [id number] [id number] 07/07 [facility] PH1 ASSMT&MGMT NQHP 5-10 [id number] [id number] Diagnos is: ICD-10- CM R09.81 Nasal congest ion ANGELLA GUSTAFSON R 07/13 [facility] [place] [facility] Outpatient Encounter [id number] [id number] 08/11 [place] [facility] Outpatient Encounter [id number] [id number] 08/12 [facility] [place] [facility] Outpatient Encounter [id number] [id number] Beverly CASTRO A 08/[address] [facility] OFFICE O/P EST MOD 30 MIN [id number] [id number] Diagnos is: ICD-10- CM 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 diabete s mellitu s with unspeci fied complic atWalter Sarmiento 08/25 [facility] Outpatient Encounter [id number] [id number] 08/25 [facility] Outpatient Encounter [id number] [id number] 09/08 [facility] [place] [facility] Outpatient Encounter [id number] [id number] 09/08 [place] [facility] Outpatient Encounter [id number] [id number] 09/13 [facility] Outpatient Encounter [id number] [id number] 09/16 [facility] MTMS BY PHARM ADDL 15 MIN [id number] [id number] Diagnos is: ICD-10- CM 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 diabete s mellitu s with unspeci fied complic atNupur Thurston W 09/17 [facility] Out[facility] Encounter [id number] [id number] 09/22 [facility] Outpatient Encounter [id number] [id number] 09/28 [facility] Outpatient Encounter [id number] [id number] 1 10/06 [facility] Outpatient Encounter [id number] [id number] 10/13 [facility] Outpatient Encounter [id number] [id number] 10/22 [facility] Outpatient Encounter [id number] [id number] 10/26 [facility] FEE [id number] [id number] Diagnos is: ICD-10- CM Z46.1 Encount er for fitting and adjustm ent of hearing aid MILAD CHOUDHURY A 10/27 [facility] REPAIR/MOD IFYING [id number] [id number] Diagnos is: ICD-10- CM Z46.1 Encount er for fitting and adjustm ent of hearing aid MILAD CHOUDHURYNDRA A 10/27 [place] [facility] Outpatient Encounter [id number] [id number] 1 11/04 [facility] Outpatient Encounter [id number] [id number] 11/12 [facility] Outpatient Encounter [id number] [id number] 11/23 [facility] Outpatient Encounter [id number] [id number] 12/04 [facility] Outpatient Encounter [id number] [id number] LUISITO HARDEN 12/06 [facility] Outpatient Encounter [id number] [id number] GLORIA CONSTANTINO 12/06 [facility] Outpatient Encounter [id number] [id number] 12/08 [facility] Outpatient Encounter [id number] [id number] 12/11 [facility] [id number] [id number] 12/11 [facility] [place] [facility] Outpatient Encounter [id number] [id number] 12/15 [place] [facility] Outpatient Encounter [id number] [id number] BARRETT RUSH 12/20 [facility] Outpatient Encounter [id number] [id number] 12/22 [facility] OFFICE O/P EST MOD 30 MIN [id number] [id number] Diagnos is: ICD-10- CM 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 diabete s mellitu s with unspeci fied complic atWalter Sarmiento JAIR 12/22 [facility] Outpatient Encounter [id number] [id number] TANI ARROYO ENDValentin ANGELLA 12/27 [facility] Social History Combined list of available smoking, tobacco, and other social history from Department of Defense and Veterans Affairs facilities. Social History Type Response Date Comment Sourc e Tobacco smoking status NHIS VA-TOBACCO USE FORMER CIGARETTES 08/25/2024 [place] [facility] History of tobacco use VA-TOBACCO NEVER USED OTHER TYPE 08/25/2024 [facility] History of tobacco use VA-TOBACCO QUIT 1 5 YRS OR MORE 06/13/2023 [facility] History of tobacco use VA-TOBACCO FORMER USER 05/22/2022 [place] History of tobacco use VA-TOBACCO NEVER USED 05/24/2021 [place] [facility] History of tobacco use VA-TOBACCO FORMER USER 02/07/2020 [facility] History of tobacco use VA-TOBACCO FORMER USER 08/04/2018 [place] [facility] History of tobacco use QUIT TOBACCO >7 Y EARS AGO 06/30/2017 [place] [facility] History of tobacco use QUIT TOBACCO >7 Y EARS AGO 09/17/2012 [facility] History of tobacco use CURRENT NON-TOBAC CO USER-HX OF USE 11/30/2004 [place] [facility] History of tobacco use CURRENT NON-TOBAC CO USER-HX OF USE 07/03/2004 [place] [facility] History of tobacco use CURRENT NON-TOBAC CO USER-HX OF USE 09/01/2003 [facility] History of tobacco use CURRENT NON-TOBAC CO USER-HX OF USE 09/16/2002 [facility] [facility] Plan of Care List of future care activities from Department of Veterans Affairs facilities. Additional future care activities may be listed in the Assessment and Plan section. Date/Time Care Activity Care Activity Detail Facili ty 06/13/2025 AMBULATORY - MEDICINE AMBULATORY - [place]IC[place] [facility] [facility]
--- OUTSIDE RECORDS SUMMARY | 2024-12-28 09:36 | XMS_ITS | Encounter Summary ---
Author Name [facility] [place] Organization [facility] [place] Address [address] [place] [address] Care Team Providers Care University Lecturer Name Role Phone TATO BARRAZA Primary Care [...] PART A Feb 21, 2009 PART A [id number] ANGELLA MARTIN PATIENT MEDICARE (WNR) MEDICARE (M) PART B Feb 21, 2009 PART B [id number] [phone] ANGELLA MARTIN PATIENT MEDICARE (WNR) MEDICARE (M) PART A Feb 21, 2009 PART A [id number] ANGELLA MARTIN PATIENT MEDICARE (WNR) MEDICARE (M) PART B Feb 21, 2009 PART B [id number] [phone] ANGELLA MARTIN PATIENT MEDICARE (WNR) MEDICARE (M) PART A Feb 21, 2009 PART A [id number] ANGELLA MARTIN PATIENT MEDICARE (WNR) MEDICARE (M) PART B Feb 21, 2009 PART B [id number] ANGELLA MARTIN PATIENT [employer] [place] [employer] PLAN F MEDIC ARE SUPPL EMENT 2013 PLAN F [id number] [phone] ANGELLA MARTIN PATIENT [employer] [place] [employer] MED[employer]ARE SUPPLEMEN [place] MEDIC ARE SUPPL EMENT 2013 PLAN F [id number] [phone] ANGELLA MARTIN PATIENT Selected Encounter This section includes the information on record at [place] for the Encounter. Date/Time Encounter Type Encounter Description Reason Provider Source Dec 28, 2024 02:36 PM Outpatient Encounter COMM[facility]ITY CARE CONSULT ANNA CORRAL IHE Encounter Template Text not used by [place] Plan of Treatment: Future Appointments (+ 6 months) and Future Tests (+/- 45 days) The Plan of Treatment section includes future care activities for the patient from all [place] treatmentfacilities. This section includes future appointments and future orders which are active, pending or scheduled. Future Appointments This section includes appointments that were scheduled to occur 6 months from the date of the Encounter, up to a maximum of 20 appointments. The data comes from all [place] treatment facilities. Appointment Date/Time Appointment Type Appointme nt Facility Name Jun 13, 2025 08:40 AM AMBULATORY - MEDICINE [facility] Jun 20, 2025 10:00 AM AMBULATORY - MEDICINE [facility] Active, Pending, and Scheduled Orders This section includes a listing of several types of active, pending, and scheduled orders, including clinic medications orders, diagnostic test orders, procedure orders and consult orders; where the start date of the order is 45 days before the date of the Encounter or 45 days after the date of theEncounter. The data comes from all [place] treatment facilities. Test Date/Time Test Type Test Details Facility Name Dec 20, 2024 10:07 AM Consult Order [facility]-HEMATOLOGY/ONC [id number] Cons Clinical Research Associate's Choice [facility] Dec 22, 2024 12:54 PM Consult Order [facility]-GI GENERAL [id number] Cons Clinical Research Associate's Choice [facility] Dec 22, 2024 05:03 PM Consult Order [facility]-SLEEP STUDY-[id number] Cons Clinical Research Associate's Choice [facility] Lab Results: +/- 30 days of the encounter This section includes the Chemistry and Hematology Lab Results on record with [place] for the patient. Radiology Reports and Pathology Reports are provided separately, in subsequent sections. Lab Results This section contains the Chemistry/Hematology Results that were resulted 30 days before or 30 daysafter the date of the Encounter. Date/Time Source Result Type Result - Unit Interpretation Reference Range Specimen Type Comment Dec 01, 2024 09:24 AM [facility] TSH (MA-PB) SERUM Specimen Type: SERUM No comment entered. Ordering Provider: TATO BARRAZA Report Released Date/Time: Dec 09, 2023 10:52 AM Reporting Lab: [place] [facility] [address] [place] [address] Performing Lab: [place] [facility] [address] [place] [address] TSH 4.243 u[IU]/mL 0.47-5 Dec 01, 2024 09:24 AM [facility] HGA1C BLOOD Specimen Type: BLOOD No comment entered. Ordering Provider: TATO BARRAZA Report Released Date/Time: Dec 09, 2023 10:52 AM Reporting Lab: [place] [facility] [address] [place] [address] Performing Lab: [place] [facility] [address] [place] [address] HGA1C 7.4 H 4.0-6.0 Dec 01, 2024 09:24 AM [facility] URINE ALBUMIN PROFILE-ih (PB) URINE Specimen Type: URINE No comment entered. Ordering Provider: TATO BARRAZA Report Released Date/Time: Dec 09, 2023 10:52 AM Reporting Lab: [place] [facility] [address] [place] [address] Performing Lab: [place] [facility] [address] [place] [address] URINE ALBUMIN (PB-STL) 417.30 mg/L uACR (PB-MA) 346.62 mg/g H 0-30 CREATININE URINE/OTHERS 120.39 mg/dL Dec 01, 2024 09:24 AM [facility] CHOLESTEROL PANEL (PB) PLASMA Specimen Type: P LASMA No comment entered. Ordering Provider: TATO BARRAZA Report Released Date/Time: Dec 09, 2023 10:52 AM Reporting Lab: [place] [facility] [address] [place] [address] Performing Lab: [place] [facility] [address] [place] [address] CHOLESTEROL 84 mg/dL 0-200 TRIGLYCERIDE 103 mg/dL 0-150 CALCULATED LDL 27.9 mg/dL HDL(New) 35.5 mg/dL L >40 HDL % OF TOTAL CHOLESTEROL (PB) 42.3 >25 Dec 01, 2024 09:[address] [facility] COMPREHENSIVE METABOLIC PANEL PLASMA Specimen Type: PLASMA No comment entered. Ordering Provider: TATO BARRAZA Report Released Date/Time: Dec 09, 2023 10:52 AM Reporting Lab: [place] [facility] [address] [place] [address] Performing Lab: [place] [facility] [address] [place] [address] CREATININE 3.11 mg/dL H 0.7-1.3 UREA NITROGEN [...] 2020) 19 Dec 01, 2024 09:24 AM [facility] BLOOD Specimen Type: BLOOD No comment entered. Ordering Provider: TATO BARRAZA Report Released Date/Time: Dec 09, 2023 10:52 AM Reporting Lab: [place] [facility] [address] [place] [address] Performing Lab: [place] [facility] [address] [place] [address] WBC 59.9 10*3/uL H 3.6-11.2 RBC 3.15 [...] Encounter. Date/Time Encounter Note(s) Provider Source Dec 28, 2024 02:36 PM NONVA NOTE: LOCAL TITLE: COMMUNITY CARE-CARE COORDINATION PLAN NOTE [id number] PB STANDARD TITLE: NONVA NOTE DATE OF NOTE: DEC 28, 2024@14:36 ENTRY DATE: DEC 28, 2024@14:36:28 AUTHOR: JENNIFER CORRAL EXP COSIGNER: URGENCY: STATUS: COMPLETED Community Care Consult: sleep Consult No: [id number] HSRM Referral #: Chief Complaint: Sleep consult new Patient Admitted? No Level of Care Coordination Moderate Care Coordination was determined from: Chart Review Facility Community Care Office Contact Care Coordination Point of Contact: Jennifer Corral ext [phone] Services: Basic Care Coordination Services Monitoring and coordination of Rehab/PT Services Direct communication to referring provider Care management, if appropriate Plan: /es/ JENNIFER CORRAL RN Signed: 12/28/2024 14:51 JENNIFER CORRAL [facility]
--- OUTSIDE RECORDS SUMMARY | 2024-12-28 21:38 | XMS_ITS | Encounter Summary ---
Author Organization [facility] Address [address] [place] [address] Care Team Providers Care Public Address Technician Name Role Phone Paula Sandoval MD Primary Care Provider + [phone] Reason for Visit * Reason Onset Date Comments 10/21/24 Willian Appt Needs Rescheduled 025 Encounter Details Date Type Department Care Team (Late st Contact Info) Description 09/23/2024 Telephone [facility] [address] [facility] [address] [place] [address] Lyndsey Dorsey, MARCELLO [address] [facility] [address], [address] [place] [address] 10/21/24 Willian Appt Needs Rescheduled Social [...] PM CDT Provider: Willian Phone: joe - [phone] MESSAGE 10/21/24 Willian appointment - pt unable to keep this appt due to having dialysis , , and Friday. Please make appt on non dialysis day. Would like appt from 10AM - 3PM please. Thank you. Susan Carpenter, [facility], Advanced PSR documented in this encounter Plan of Treatment Upcoming Encounters Date Type Department Care Team (Late st Contact Info) Description 12/30/2024 10:15 AM CDT Appointment [facility] Laboratory Services [address] [phone] 01/03/2025 3:30 PM CDT Video Visit [facility]emat[facility] [place] [address] [address] Iqra Brito NP [address] [phone] 01/17/2025 11:45 AM CDT Appointment [facility] Laboratory Services [address] [phone] 01/19/2025 3:00 PM CDT Office Visit [facility] Hematology [place] [address] [address] Iqra Brito NP [address] [place] [address] 01/21/2025 11:00 AM CDT Office Visit [facility] [address] [place] [address] Lyndsey Dorsey, MARCELLO [address] [place] [address] 03/18/2025 11:30 AM CDT Office Visit [facility] Vascular Surgery [place] [address] [place] [address] Klarissa Flowers MD [address] [facility] [address] [place] [address] documented as of this encounter Visit Diagnoses Not on filedocumented in this encounter Care Teams Public Address Technician Relationship Specialty Start Date End Date Paula Sandoval MD [address] [place] [phone] PCP - General Family Practice 10/18/24 documented as of this encounter
--- OUTSIDE RECORDS SUMMARY | 2024-12-28 21:38 | XMS_ITS ---
Author Organization [facility] Address [address] [place] [address] Phone Care Team Providers Care Scientific Aide Name Role Phone Paula Sandoval MD Primary Care Provider [phone] Active Problems Problem Noted Date Diagnosed Date [...] lobe of lung 03/29/2024 Lesion of right [place] kidney 03/29/2024 Acute hypoxic respiratory failure 03/29/2024 [...]
--- OUTSIDE RECORDS SUMMARY | 2024-12-28 21:39 | XMS_ITS | Data Portability ---
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 Procedures None recorded. Surgeries None recorded. Imaging None recorded. Medication Orders doxycycline hyclate 100 mg capsule 2024 025 [facility], [address], [place], [address], 5 13:29:23 montelukast 10 mg tablet 2023 024 [facility], [address], [place], [address], 4 13:02:33 ondansetron HCl 4 mg tablet [address] [facility], [address], [place], [address], 4 12:17:46 Paxlovid 300 mg (150 mg x 2)-100 mg tablets in a dose pack [address] [facility], [address], [place], [address], 12:17:59 Patient TargetsNo targets recorded. Patient Instructions Encounter Date Encounter Id Patient Instructions Last Modified By Organization Details Last Modified Time 03/26/2024 [id number] Call or return for questions or concerns. Not available 03/26/2024 13:02:26 07/03/2024 [id number] Call or return for questions or concerns. [...] the [facility] s websi te: www.payworks uestD iagno stics .com/ Covid 19. For [...] on COVID -19 vacci elly. Not Available [email or web address] [facility] [address], [place], [address], 03/19/2023 08:30:00 03/17/20 23 03/17/2023 SARS CoV 2 RNA, QL, nasop haryn x COVID negati ve Not Available [facility] ([facility]) [address] [place], [address], 03/17/2023 12:49:58 Result Notes None recorded. 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 Mann; 05/10/2021 2:25PM by Bernadette Bonilla, RN, Office Visit; Promoted; acuity set as *; Not Available [facility] 3 03:16:30 Benign essential hypertens ion 9022793 Active 2020 Hypertensi on; 05/10/2021 2:25PM by Bernadette Bonilla RN, Office Visit; Promoted; acuity set as *; Not Available [facility] 3 03:16:35 Type 2 diabetes mellitus without complicat ion 715804121 Active 2020 Non-Insuli n Dependent Diabetes Mellitus; pt test QID; 05/10/2021 2:25PM by Bernadette Bonilla RN, Office Visit; Promoted; acuity set as *; Not Available [facility] 3 03:16:37 Problem Notes None recorded. Medical Equipment None Reported. Allergies Allergen ID Allergen Name Allergen Category Reaction Reaction Severity Criticality Documentation Date Start Date Code Code System Note Provider Name and Address Organization Details Recorded Time 00194 iodine medicatio n Not available Not available Not available 01/18/2023 5933 RxNorm Comme nt: Recor ded 05/10 2:25P M by Ryan Bonilla RN, Offic e Visit ; Promo emmanuel; Signi kalin ce: *; Reaso n: Drug aller gy; ; Not Available [facility] 3 02:24:23 28842 Uloric medicatio n hives Not available Not available 01/18/2023 38037 6 RxNorm React ion: Hives ; Comme nt: Recor ded 05/10 2:25P M by Ryan Bonilla RN, Offic e Visit ; Promo emmanuel; Signi ficloren ce: *; Reaso n: Drug aller gy; ; Not Available [facility] 3 02:24:23 24236 allopurin ol medicatio n abdominal pain Not available Not available 01/18/2023 519 RxNorm React ion: Abdom inal pain, Hives ; Comme nt: Recor ded 05/10 2:25P M by Ryan Bonilla RN, Offic e Visit ; Promo emmanuel; Signi kalin ce: *; Reaso n: Drug aller gy; ; Not Available [facility] 3 02:24:23 23557 Flomax medicatio n other Not available Not available 01/18/2023 60923 3 RxNorm React ion: Blood disor luz marina; Comme nt: Recor ded 05/10 2:25P M by Ryan Bonilla RN, Offic e Visit ; Promo emmanuel; Signi ficloren ce: *; Reaso n: Drug aller gy; ; Not Available [facility] 3 02:24:23 77589 Levaquin medicatio n hallucina tions Not available Not available 01/18/2023 17116 2 RxNorm React ion: demen tia, confu garfield, hallu cinat ions, agita tion; Comme nt: Recor ded 05/10 2:25P M by Ryan Bonilla RN, Offic e Visit ; Promo emmanuel; Signi fican ce: *; Reaso n: Drug aller gy; ; Not Available [facility] 3 02:24:23 16612 Seroquel medicatio n hallucina tions Not available Not available 01/18/2023 09144 RxNorm React ion: hallu cinat ions; Comme nt: Recor ded 05/10 2:25P M by Ryan Bonilla RN, Offic e Visit ; Promo emmanuel; Signsusan gagnon ce: *; Reaso n: Drug aller gy; ; Not Available [facility] 3 02:24:23 Medications Name Sig Start [...] minutes x 3 prn 2019 active VO JR/[facility] pharmacy ; Recorded 01/20/20 21 8:38AM by [...] in Arterial blood by Pulse oximetry Systolic And Diastolic Provider Name and Address Organization Details Last Updated DateTime 5 180.34 cm 32.1 kg/m2 080742. 05 g 98.4 [degF] 77 /min 93 % 93 % 140/62 mm[Hg] Sherin Jama [facility] 5 12:50:20 Date Recorded Body height Body mass index (BMI) Body weight Oxygen saturation Oxygen saturation in Arterial blood by Pulse oximetry Heart rate Respiratory rate Body temperature Provider Name and Address Organization Details Last Updated DateTime 3 177.8 cm 35.7 kg/m2 258711. 5 g 98 % 98 % 94 /min 20 /min 98.2 [degF] SAILAJA ROSALES [facility] [address] [place], [address], [facility] 3 12:51:23 Date Recorded Body weight Body mass index (BMI) Body height Body temperature Oxygen saturation Oxygen saturation in Arterial blood by Pulse oximetry Heart rate Systolic And Diastolic Provider Name and Address Organization Details Last Updated DateTime 4 643272. 13 g 34.2 kg/m2 180.34 cm 98 [degF] 95 % 95 % 81 /min 132/58 mm[Hg] Sherin Jama [facility], [facility] 4 12:22:13 Social History None recorded. Functional Status None recorded. Mental Status None recorded. Family History Nothing Reported. Medical History No medical history recorded. Immunizations Vaccine Type Date Status Note Provider Nam e and Address Organization Details Recorded Time Td (adult), 2 Lf tetanus toxoid, preservative free, adsorbed 7 completed Not Available [facility] 01/18/2023 02:50:56 Influenza, split virus, trivalent, preservative 1 completed Not Available [facility] 01/18/2023 02:50:56 pneumococcal, unspecified formulation 1 completed Not Available [facility] 01/18/2023 02:50:56 zoster, unspecified formulation 1 completed Not Available [facility] 01/18/2023 02:50:56 Influenza, split virus, trivalent, preservative 1 completed Not Available [facility] 01/18/2023 02:50:56 pneumococcal polysaccharide PPV23 1 completed Not Available [facility] 01/18/2023 02:50:56 COVID-19, mRNA, LNP-S, PF, 30 mcg/0.3 mL dose 1 completed Not Available [facility] 01/18/2023 02:50:57 COVID-19, mRNA, LNP-S, PF, 30 mcg/0.3 mL dose 1 completed Not Available [facility] 01/18/2023 02:50:57 Past Encounters Encounter ID Performer Location Encounter Start Date Encounter Closed Date Diagnosis/Indication Diagnosis SNOMED-CT Code Diagnosis ICD10 Code Diagnosis Note [id number] ALL SHOEMAKER [facility] ([facility]) [address] [place] [phone] 03/17/2023 12:05:05 03/18/2023 14:42:14 Cough 18240069 R05.9 COVID-19 695217647 U07.1 Nausea 966913722 R11.0 [id number] ALL NAVA [facility] ([facility]) [address] [place] [address] 03/26/2024 11:40:55 03/26/2024 13:06:31 Seasonal allergic rhinitis 513367915 J30.2 [id number] ALL N[facility] ([facility]) [address] [place] [address] 07/03/2024 12:08:59 07/03/2024 13:37:45 Acute bacterial bronchitis 211170758 J20.9 End stage renal failure on dialysis 718345499 N18.[address] [place] out of [place] claire Health Concerns Section Related Observation LastModified by Organization Detai ls LastModified Time None Recorded Concern Status LastModified by Organization Details LastModified Time None Recorded Advance Directives Directive None Recorded Payers Insurance Date Sequence Insurance Name Policy Number Policy Cedillo Covered Member ID Cedillo Member ID Guarantor Name 03/26/2024 2 [employer] (MEDICARE SUPPLEMENT) Valente Renae [id number] Valente Renae 07/03/2024 1 [place] Valente Renae [id number] Valente Renae 07/03/2024 [place] - [facility] (MEDICARE) Valente Renae [id number] Valente Renae Notes Date Note Type Note Provider Name and Address Organization Details Recorded Time 03/17/2023 text/html COVID-19 Symptom s October 2019Reported bypatient.COVID-19 Signs and Symptomscough worsening;chills worsening;muscle pain worsening;headache worsening;fatigue worsening;diarrhea worsening;runny nose worsening;congestion worsening Contacts and ExposureCOVID positive at home Quality:productive cough Severity:moderate Duration:symptoms lasting 2 days Associated Symptoms:green sputum;fatigue Prior Labs and ImagingCOVID-19 nasopharyngeal swab (positive at home)Notes:Afebrile. No nausea. ALL SHOEMAKER [address] [place] [address], [phone], [facility], [place] 03/17/2023 13:27:21 03/26/2024 text/html CoughReported bypatient.Quality:pr oductive Severity:moderate Duration:constant Onset/Timing:sudden Context:non-smoker Associated Symptoms:no fever; no chills; no throat clearing walk in ptPt has had a terrible cough for a week and a half. TONY CAMPOS [address], [address], [facility], [place] 03/26/2024 13:04:04 07/03/2024 text/html [facility] and [facility] and has 2 dialysis visits. TOYN CAMPOS [facility] [address] [place], [address], [facility], [place] 07/03/2024 13:30:07
--- OUTSIDE RECORDS SUMMARY | 2024-12-28 21:39 | XMS_ITS | Clinical Summary ---
Author Organization [facility] Address [address] [facility] [address] [place] [address] Phone Care Team Providers Care Drop Board Worker Name Role Phone Paula Sandoval MD Primary Care Provider + [phone] Allergies Active Allergy Reactions Criticality Noted Date [...] Constipation. Active fluticasone propionate (FLONASE) 50 mcg/spray [place], Suspension nasal inhaler Administer 1 [place] in each nostril 2 times daily. Active [...] taking differently:80 mg OralDAILY LATE, Reported on 12/23/2024 furosemide (LASIX) 40 mg tablet Take 2 [...] mg tabletIndicatio ns:ESRD (end stage renal disease) ([facility]/HCC) Take 1 Tablet by mouth every 4 hours as needed for Pain, Moderate. Max Daily Amount: 6 Tablets 15 Tablet 11/29/2024 11:43 AM CDT 5 Active Additional Information Patient not taking.Reported on 12/23/2024 pantoprazole (PROTONIX) 40 mg Tablet, Delayed Release (E.C.) Take 1 Tablet (40 mg) by mouth 2 times daily. 60 Tablet Active folic acid (FOLVITE) 1 mg tablet Take 1 mg by mouth daily. Active pirtobrutinib (Jaypirca) 50 mg TabletIndicatio ns:CLL (chronic lymphocytic leukemia) (CMS/HCC) Take 1 tablet (50mg) by mouth daily. 90 Tablet Active Active Problems Problem Noted Date [...] lobe of lung 03/29/2024 Lesion of right [place] kidney 03/29/2024 Acute hypoxic respiratory failure 03/29/2024 Anemia 03/29/2024 Thrombocytopenia 03/29/2024 Impaired mobility 02/02/2021 CLL (chronic lymphocytic leukemia) 02/02/2021 History of COVID-19 02/02/2021 Generalized muscle weakness 01/30/2021 Acute cystitis without hematuria 01/30/2021 Stage 4 chronic kidney disease 11/05/2019 Chronic lymphocytic leukemia 11/05/2019 Encounters Date Type Department Care Team Description 12:00 PM CDT Office Visit [facility] [address] [place] [address] Umm Dotson, CLL (chronic lymphocytic leukemia) ([facility]/HCC) (Primary Dx) 5 Orders Only [facility] [address] [place] [address] Umm Dotson DO CLL (chronic lymphocytic leukemia) ([facility]/HCC) (Primary Dx) 5 Orders Only [facility] [address] [place] [address] Umm Dotson, CLL (chronic lymphocytic leukemia) ([facility]/HCC) (Primary Dx) 5 1:45 PM CDT Office Visit [facility] Vascular Surgery [address] [phone] Klarissa Flowers MD ESRD (end stage renal disease) ([facility]) (Primary Dx); S/P arteriovenous (AV) graft placement 5 Telephone [facility] Vascular Surgery [address] [phone] Klarissa Flowers MD Question 5 Orders Only [facility] HIM [address] [place] [phone] Provider, Abstract 5 10:50 AM CDT Anesthesia Event [facility] Endoscopy [address] [place] [phone] Tariq Ruggiero MD Edwards, Cary Dawn, RUBIN 5 8:20 AM CDT - 5 8:40 AM CDT Surgery [facility] Endoscopy [address] [place] [phone] Clinton Ascencio, DO ESOPHAGOGASTRODUODENOSCOPY 5 External Device Data STL ABSTRACTION Provider, Abstract 5 Travel 5 12:47 AM CDT - 5 8:00 PM CDT Hospital Encounter [facility] 3D Medical Telemetry [address] [place] [phone] Gema Iniguez, MD More Weiss, MD Francisco Hurst, MD Pita Birmingham, MD Jason Dominguez, Ruperto Junior MD Severe sepsis with septic shock (CMS/HCC) Discharge Disposition: Home or Self Care 5 7:30 AM CDT Anesthesia Event [facility] Operating Room [address] [place] [phone] Jeffry Walker MD 5 7:20 AM CDT - 5 9:09 AM CDT Surgery [facility] Operating Room [address] [place] [phone] Klarissa Flowers MD ARTERIOVENOUS GRAFT INSERTION 5 5:30 AM CDT - 5 12:05 PM CDT Hospital Encounter [facility] 3J Pre-Op [address] [place] [phone] Klarissa Flowers MD End stage renal disease (CMS/HCC) Discharge Disposition: Home or Self Care 5 Prep for Surgery [facility] Vascular Surgery [address] [phone] Klarissa Flowers MD ESRD (end stage renal disease) (CMS/HCC) (Primary Dx) 5 Telephone [facility] Vascular Surgery [address] [phone] Klarissa Flowers MD Surgery Talk 5 Telephone [facility] Surgery [address] [phone] Klarissa Flowers MD Erroneous encounter-disregard 5 Orders Only [facility] Surgery [address] [phone] Klarissa Flowers MD ESRD (end stage renal disease) ([facility]) (Primary Dx); Encounter for pre-operative examination; Abnormal coagulation profile 5 Telephone [facility] Surgery [address] [phone] Klarissa Flowers MD Appointment Notification 5 12:30 PM CDT Office Visit [facility] Vascular Surgery [address] [phone] Klarissa Flowers MD ESRD (end stage renal disease) ([facility]) (Primary Dx); Dilated cardiomyopathy ([facility]); Type 2 diabetes mellitus with stage 4 chronic kidney disease, with long-term current use of insulin ([facility]); Acute combined systolic and diastolic congestive heart failure ([facility]); Coronary artery disease involving [place] coronary artery of [place] heart without angina pectoris 5 11:00 AM CDT Ancillary Procedure [facility] and [facility] Center[address] [phone] Klarissa Flowers MD Benign hypertension with ESRD (end-stage renal disease) ([facility]) 5 Telephone [facility] Surgery [address] [phone] Klarissa Flowers MD Appointment Verification 5 Telephone [facility] Surgery [address] [phone] Klarissa Flowers MD Question 5 Telephone [facility] [address] [facility] [address] [place] [phone] Sotero Alejandro MD Follow Up; Question; Michelle returning a call 5 Telephone [place] [address] [place] [phone] Sotero Alejandro MD Information; Follow Up 5 11:15 AM CDT Procedure visit [place] [address] [place] [phone] Sotero Alejandro MD Chronic combined systolic and diastolic heart failure (CMS/HCC) (Primary Dx); SSS (sick sinus syndrome) (CMS/HCC) 5 11:15 AM CDT Office Visit [place] [address] [place] [address] [phone] Sotero Alejandro MD SSS (sick sinus syndrome) (CMS/HCC) (Primary Dx) 5 Abstract [place] [address] [place] [phone] Scanning, Provider 5 Orders Only [address] [place] [phone] Sotero Alejandro MD Chronic combined systolic and diastolic heart failure (CMS/HCC) (Primary Dx); SSS (sick sinus syndrome) (CMS/HCC) 5 External Device Data STL ABSTRACTION Provider, Abstract 5 Telephone [place] [address] [place] [address] [phone] Lyndsey Dorsey, MARCELLO Results (NM stress test); requesting sooner appt; Chest Pain; Shortness of Breath from Last 3 Months Immunizations Immunization Administration Dates Next Due (ADACEL/BOOSTRIX)(10 YR UP) TDAP VACCINE, 0.5ML, IM 12/20/2020 (HEPLISAV-B)(18 YR UP) HEPAT ITIS B VACCINE CPG-ADJUVANTED (HEPB-CPG) 2-4 DOSE, IM 04/29/2024 (PFIZER)(12 YR UP) COVID-19 VACCINE - EMERGENCY USE AUTHORIZATION, MRNA, [id number](PF) 30 MCG/0.3 ML IM SUSP 08/18/2020,07/24/2020,06/23/2020 (PNEUMOVAX [...] F) 12/23/2024 12:04 PM CDT Respiratory Rate 18 12/11/2024 4:47 PM CDT Oxygen Saturation 92% 12/17/2024 2:04 PM CDT Inhaled Oxygen Concentration - - Weight 105.9 kg (233 lb 6.4 oz) 025 12:04 PM CDT Height 180.3 cm (5' 11 ) 12/23/2024 12: 04 PM CDT Body Mass Index 32.55 12/23/2024 12:04 PM CDT Plan of Treatment Upcoming Encounters Date Type Department Care Team (Late st Contact Info) Description 12/30/2024 10:15 AM CDT Appointment [facility] Laboratory Services [address] [phone] 01/03/2025 3:30 PM CDT Video Visit [facility] [address] [phone] Iqra Brito NP [address] [phone] 01/17/2025 11:45 AM CDT Appointment [facility] [address] [phone] 01/19/2025 3:00 PM CDT Office Visit [facility] [address] [phone] Iqra Brito NP [address] [phone] 01/21/2025 11:00 AM CDT Office Visit [facility] [address] [facility] [address] [place] [phone] Lyndsey Dorsey, MARCELLO [address] [facility] [address] [place] [phone] 03/18/2025 11:30 AM CDT Office Visit [facility] Surgery North [address] [place] [phone] Klarissa Flowers MD [address] [facility] [address] [place] [phone] Health Maintenance Due Date Last Done Comments DIABETES ANNUAL FOOT EXAM 1963 RSV VACCINE (60+ or ) (1 - 1-dose 75+ series) 2019 COVID-19 Vaccine (2023-2 5 season) 2024 08/18/2020, 07/24/2020, 06/23/2020 DIABETES ANNUAL RETINAL EXAM 12/08/2024 12/09/2023, 12/09/2023 INFLUENZA VACCINE (#1) 2025 , 06/09/2024, 03/12/2021, Additional history exists DIABETES MICROALBUMIN ANNUAL SCREEN 03/29/2025 03/29/2024 LDL CHOLESTEROL ANNUAL 03/29/2025 03/29/2024, 2020 DIABETES HBA1C Q 6 MONTHS 06/02/20252024, 03/29/2024, 03/28/2024, Additional history exists DTAP/TDAP/TD VACCINES (3 - T d or Tdap) 12/20/2030 12/20/2020, 06/04/2007, 11/30/2004 PNEUMOCOCCAL VACCINE 50+ YEARS Completed 1 07/25/2020, 03/12/2021, 12/20/2020, Additional history exists ZOSTER VACCINE Completed 05/24/2021, 02/22, 03/07/2021 Medical Devices Implanted Type Area Capacity Planning Manager Device Identifier Shelf Expiration Date Model / Serial / Lot Cath Dialysis Glidepath 14.5fr 23cm Std [id number] - [id number] Implanted:Qty: 1 on 04/01/2024 by Kim Flowers MD at [facility] Catheter Right: Chest BARD NUVIA VASC [id number] 09/20/2025 [id number] / / [id number] Clip Ligating Horizon Red 532481 - Csc - [id number] Implanted:Qty: 1 on 11/29/2024 by Klarissa Flowers MD at [facility] Clip Right: Arm [employer] [id number] 08/06/2029 [id number] / / [id number] Clip Ligating Horizon Med Ti 137113 [place] [facility] [place] [id number] Implanted:Qty: 1 on 11/29/2024 by Klarissa Flowers MD at [facility] Clip Right: Arm TELEFLEX- WECK CLOSURE SYS [id number] 05/30/2029 [id number] / / [id number] Graft Vasc Propaten [id number] - [id number] Implanted:Qty: 1 on 11/29/2024 by Klarissa Flowers MD at [facility] Graft Right: Arm [employer] [id number] 07/19/2027 [id number] / [id number] / Agent Hemostat Surgicel 2x3in 1952s - [id number] Implanted:Qty: 1 on 11/29/2024 by Klarissa Flowers MD at [facility] Hemostatic Right: Arm [employer]- [employer] [id number] 09/20/20283S / / [id number] Pacemaker Procedures Procedure Name [...] CDT PROCEDURE PHOTOGRAPHS 12/01/2024 10:48 AM CDT SD ANESTHESIA BLOCK PB PLACEHOLDER CHARGE Routine 11/29/2024 8:07 AM CDT SD CRTJ ARVEN FSTL XCP DIR ARVEUGENIA YESSENIA NONAUTOG GRF 11/29/2024 7:20 AM CDT End [...] hypertension with ESRD (end-stage renal disease) (CMS/HCC) SD PROGRAM EVAL IMPLANTABLE IN PERSN DUAL LD PACER Routine 10/26/2024 11:10 AM CDT Chronic combined systolic and diastolic heart failure (CMS/HCC) SSS (sick sinus syndrome) (CMS/HCC) SD ECG ROUTINE ECG W/LEAST 1 2 LDS [...] - 99 mg/dL 12/11/2024 5:46 PM CDT [facility] SPECIMEN SOURCE, GLUCOSE POC Capillary 12/11/2024 5:46 PM CDT [facility] Blood, whole 12/11/2024 5:46 PM CDT 12/11/2024 6:17 PM CDT Ruperto Gomez MD POINT OF CARE TESTING Fi nal Result [facility] CLIA # [id number] [address] [place] [address] * HEMODIALYSIS (12/11/2024 12:00 PM CDT) Narrative [facility] Just around Us [facility] - 12/11/2024 12:00 PM CDT Jim Farooq MD 12/11/2024 12:22 PM [facility] - Procedure Note Primary Specialty Sales Representative: Dr. Ro West PROCEDURE: Intermittent Hemodialysis INDICATION: [...] stores adequate tsat 29% Addy Jacobs NP [facility] 12/11/24, 12:00 PM us Dustin Michel ANP DIALYSIS ORDERABLES Final Res ult [facility] CLIA # [id number] [address] [place] [address] * (ABNORMAL) MANUAL DIFFERENTIAL (12/11/2024 10:03 AM CDT) Only the most recent of10 resultswithin the time period is included. SEGMENTED NEUTROPHILS 3(L) 36 - 66 % 12/11/2024 11:25 AM CDT [facility] LYMPHOCYTES RELATIVE 97(H) 24 - 44 % 12/11/2024 11:25 AM CDT [facility] PLATELET EST. Decreased 12/11/2024 11:25 AM CDT [facility] NEUTROPHILS ABSOLUTE COUNT 1.78(L) 2.00 - 8.00 K/uL 12/11/2024 11:25 AM CDT [facility] LYMPHOCYTES ABSOLUTE 57.52(H) 1.20 - 4.00 K/uL 12/11/2024 11:25 AM CDT [facility] ATYPICAL LYMPHS ABSOLUTE 12/11/2024 11:25 AM CDT [facility] ANISOCYTOSIS 2+ /hpf 12/11/2024 11:25 AM CDT [facility] POIKILOCYTES 1+ /hpf 12/11/2024 11:25 AM CDT [facility] MACROCYTES 1+ /hpf 12/11/2024 11:25 AM CDT [facility] TOTAL CELLS COUNTED IN DIFF 100 12/11/2024 11:25 AM T [facility] Blood Venipuncture / Unknown 12/11/2024 10:03 AM CDT 12/11/2024 10:37 AM CDT Ruperto Gomez MD HEMATOLOGY ORDERABLES CO M Final Result Performing Organization Address City/State/[facility] Co de Phone Number [facility] CLIA # [id number] [address] [place] [address] [phone] * (ABNORMAL) CBC WITH DIFFERENTIAL (12/11/2024 10:03 AM CDT) Only the most recent of10 resultswithin the time period is included. WBC 59.3(H) 4.8 - 10.8 K/uL 12/11/2024 11:25 AM T [facility] RBC 2.30(L) 4.60 - 6.20 M/uL 12/11/2024 11:25 AM T [facility] HEMOGLOBIN 7.3(L) 14.0 - 18.0 g/dL 12/11/2024 11:25 AM T [facility] HEMATOCRIT 23.5(L) 41.0 - 53.0 % 12/11/2024 11:25 AM T [facility] MCV 102.2 84.0 - 103.0 fL 12/11/2024 11:25 AM CDT [facility] MCH 31.7 27.0 - 34.0 pg 12/11/2024 11:25 AM CDT [facility] MCHC 31.1 30.0 - 35.0 g/dL 12/11/2024 11:25 AM CDT [facility] PLATELETS 72(L) 140 - 440 K/uL 12/11/2024 11:25 AM CDT [facility] MPV 11.3 8.9 - 12.8 fL 12/11/2024 11:25 AM CDT [facility] RDW 18.3(H) 11.0 - 14.5 % 12/11/2024 11:25 AM T [facility] RDW-STDEV 67.4(H) 37.0 - 54.0 fL 12/11/2024 11:25 AM T [facility] SMEAR REVIEWED: - See Manual Diff. 12/11/2024 11:25 AM T [facility] Blood Venipuncture / Unknown 12/11/2024 10:03 AM CDT 12/11/2024 10:37 AM CDT Ruperto Gomez MD HEMATOLOGY ORDERABLES nal Result [facility] CLIA # [id number] [address] [place] [address] * (ABNORMAL) RENAL FUNCTION PANEL (12/11/2024 8:58 AM CDT) SODIUM 134(L) 136 - 145 mmol/L 12/11/2024 9:55 AM CDT [facility] POTASSIUM 4.2 3.5 - 5.1 mmol/L 12/11/2024 9:55 AM CDT [facility] CHLORIDE 96(L) 98 - 107 mmol/L 12/11/2024 9:55 AM CDT [facility] CO2 22 22 - 29 mmol/L 12/11/2024 9:55 AM CDT [facility] CALCIUM 8.2(L) 8.8 - 10.2 mg/dL 12/11/2024 9:55 AM CDT [facility] BUN 59(H) 8 - 23 mg/dL 12/11/2024 9:55 AM T [facility] CREATININE 5.39(H) 0.67 - 1.17 mg/dL 12/11/2024 9:55 AM T [facility] Comment:The GFR result is no t clinically significant on patients <18 or >70 years of age. GLUCOSE 196(H) 74 - 99 mg/dL 12/11/2024 9:55 AM T [facility] ALBUMIN 3.8 3.5 - 5.2 g/dL 12/11/2024 9:55 AM T [facility] PHOSPHORUS 6.0(H) 2.5 - 4.5 mg/dL 12/11/2024 9:55 AM T [facility] GFR 10 mL/min/1. 73 sq meter 12/11/2024 9:55 AM [facility] Comment:eGFR calculated with 2020 CKD-EPI equation. Vegetarian diet, extremely high or low muscle mass, and may affect results. Cystatin C with Glomerular Filtration Rate is a suitable alternative for these patients. ANION GAP 16 9 - 20 mmol/L 12/11/2024 9:55 AM T [facility] Blood Venipuncture / Unknown 12/11/2024 8:58 AM CDT 12/11/2024 9:25 AM CDT us Ro West MD CHEMISTRY ORDERABLES Final Result [facility] CLIA # [id number] [facility] [address] * (ABNORMAL) HEMOGLOBIN AND HEMATOCRIT (12/10/2024 8:11 PM CDT) HEMOGLOBIN 7.6(L) 14.0 - 18.0 g/dL 12/10/2024 8:49 PM CDT [facility] HEMATOCRIT 25.0(L) 41.0 - 53.0 % 12/10/2024 8:49 PM CDT [facility] Blood Venipuncture / Unknown 12/10/2024 8:11 PM CDT 12/10/2024 8:32 PM CDT Jazmin Lema MD HEMATOLOGY ORDERABLES Final Result [facility] CLIA # [id number] [address] [place] [address] * UPPER ENDOSCOPY REPORT (12/10/2024 11:09 AM CDT) Narrative Procedure Note Clinton Ascencio DO - 12/10/2024 11:09 AM CDT [facility] GI Patient Name: Nisa Renae Procedure [...] Withdrawal Time Scope In: Scope Out: [address] [place], [place] Clinton Ascencio DO GI PROCEDURE ORDERABLES Final Result * PATHOLOGY (12/10/2024 11:00 AM CDT) CASE REPORT Surgical Pathology Report Case: [id number] Authorizing Provider: Clinton Ascencio DO Collected: 12/10/2024 11:00 AM Ordering Location: [facility] Received: 12/10/2024 03:55 PM Endoscopy Pathologist: Izaiah Sandoval MD Specimen: Stomach, ulcers 11:19 AM CDT [facility] FINAL DIAGNOSIS A. 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 pylori by immunohistochemistry REV: GERMAIN Sandoval MD [id number] 11:19 AM CDT [facility] at 1119 CDT DIAGNOSIS COMMENT The patient's clinical history of CLL/SLL is noted. It is unclear if the fragment of ulcer bed is from the stomach or possibly a contaminant. Clinical and endoscopic correlation is recommended. 11:19 AM CDT [facility] GROSS DESCRIPTION A. Received in formalin labeled Renae -stomach ulcers are two fragments of tissue up to 0.4 cm. The specimen is submitted in toto in A1. Elif Shine 5 11:19 AM CDT [facility] MICROSCOPIC DESCRIPTION After review of H&E stained [...] highlight polytypic plasma cells. 5 11:19 AM T [facility] OPERATIVE PROCEDURE 1: ESOPHAGOGASTRODUODENOSCO PY 5 11:19 AM T [facility] CLINICAL INFORMATION A Bxs of gastric ulcers Bxs of gastric ulcers 5 11:19 AM T [facility] COMMENT The Intern voice-activated dictation system may have been used [...] the Diagnostic Immunohistochemistry Laboratory of [facility] in compliance with CLIA'88 regulations. Some of these tests rely on the use of analyte specific reagents and are subject to specific labeling requirements by the FDA. All controls show appropriate reactivity. This testing was developed by the Diagnostic Immunohistochemistry Laboratory of [facility]. It has not been cleared or approved by the FDA. The FDA has determined that such clearance or approval is not necessary. 5 11:19 AM T [facility] Tissue ENTIRE STOMACH / Unknown Collection / Unknown 12/10/2024 11:00 AM CDT 12/10/2024 3:55 PM CDT Comment:Bxs of gastric ulcer s us Clinton Ascencio DO PATHOLOGY/CYTOLOGY ORDE STEVIE Final Result Performing Organization Address [facility]/ZIP Co de Phone Number [facility] CLIA # [id number] [address] [address] * (ABNORMAL) OCCULT BLOOD GUAIAC DIAGNOSTIC (12/08/2024 11:32 AM CDT) OCCULT BLOOD, STOOL Positive( A) Negative 12/08/2024 5:38 PM CDT [facility] Stool STOOL SPECIMEN / Unknown Collection / Unknown 12/08/2024 11:32 AM CDT 12/08/2024 5:28 PM CDT us Jazmin Lema MD BODY FLUIDS AND STOOLS Final Result Performing Organization Address [facility] Co de Phone Number [facility] CLIA # [id number] [address] [address] * (ABNORMAL) IRON, TIBC, AND PERCENT SATURATION (12/08/2024 4:23 AM CDT) Pathologist [facility] IRON 55(L) 59 - 158 ug/dL 12/09/2024 4:39 PM CDT [facility] TIBC 187(L) 250 - 450 ug/dL 12/09/2024 4:39 PM CDT [facility] IRON % SATURATION 29 15 - 60 % 12/09/2024 4:39 PM CDT [facility] Blood Venipuncture / Unknown 12/08/2024 4:23 AM CDT 12/08/2024 4:33 AM CDT us Umm Dotson DO CHEMISTRY ORDERABLES Fi nal Result Performing Organization Address City/[facility]/ZIP Co de Phone Number [facility] CLIA # [id number] [address] [address] * (ABNORMAL) FERRITIN (12/08/2024 4:23 AM CDT) Pathologist [facility] FERRITIN 917.2(H) 30.0 - 400.0 ng/mL 12/09/2024 4:38 PM CDT [facility] Blood Venipuncture / Unknown 12/08/2024 4:23 AM CDT 12/08/2024 4:33 AM CDT us Umm Dotson DO CHEMISTRY ORDERABLES Fi nal Result [facility] CLIA # [id number] [address] [place] [address] * (ABNORMAL) COMPREHENSIVE METABOLIC PANEL (12/08/2024 4:23 AM CDT) Only the most recent of5 resultswithin the time period is included. [facility] SODIUM 136 136 - 145 mmol/L 12/08/2024 5:13 AM T [facility] POTASSIUM 4.3 3.5 - 5.1 mmol/L 12/08/2024 5:13 AM T [facility] CHLORIDE 98 98 - 107 mmol/L 12/08/2024 5:13 AM CDT [facility] CO2 26 22 - 29 mmol/L 12/08/2024 5:13 AM CDT [facility] CALCIUM 8.8 8.8 - 10.2 mg/dL 12/08/2024 5:13 AM CDT [facility] BUN 54(H) 8 - 23 mg/dL 12/08/2024 5:13 AM T [facility] CREATININE 4.59(H) 0.67 - 1.17 mg/dL 12/08/2024 5:13 AM T [facility] Comment:The GFR result is no t clinically significant on patients <18 or >70 years of age. GLUCOSE 153(H) 74 - 99 mg/dL 12/08/2024 5:13 AM T [facility] TOTAL PROTEIN 5.4(L) 6.4 - 8.3 g/dL 12/08/2024 5:13 AM T [facility] ALBUMIN 3.5 3.5 - 5.2 g/dL 12/08/2024 5:13 AM T [facility] BILIRUBIN TOTAL 0.4 0.0 - 1.0 mg/dL 12/08/2024 5:13 AM T [facility] ALKALINE PHOSPHATASE 85 40 - 129 U/L 12/08/2024 5:13 AM T [facility] AST 28 10 - 50 U/L 12/08/2024 5:13 AM T [facility] ALT 76(H) <=50 U/L 12/08/2024 5:13 AM T [facility] GFR 12 mL/min/1. 73 sq meter 12/08/2024 5:13 AM T [facility] Comment:eGFR calculated with 2020 CKD-EPI equation. Vegetarian diet, extremely high or low muscle mass, and may affect results. Cystatin C with Glomerular Filtration Rate is a suitable alternative for these patients. ANION GAP 12 9 - 20 mmol/L 12/08/2024 5:13 AM T [facility] Blood Venipuncture / Unknown 12/08/2024 4:23 AM CDT 12/08/2024 4:33 AM CDT us Dustin Michel ANP CHEMISTRY ORDERABLES Final Re sult [facility] CLIA # [id number] [address] [place] [address] * UNFRACTIONATED HEPARIN MONITORING (12/07/2024 6:58 AM CDT) Only the most recent of9 resultswithin the time period is included. Pathologist [facility] ANTI-XA UNFRAC HEP 0.41 See Interpretation IU/mL 12/07/2024 7:19 AM CDT [facility] Blood Venipuncture / Unknown 12/07/2024 6:58 AM CDT 12/07/2024 7:02 AM CDT Narrative [facility] - 12/07/2024 7:19 AM CDT Therapeutic Range: PT/DVT Heparin Protocol 0.3 - 0.7 IU/ml Cardiac Heparin Protocol 0.3 - 0.6 IU/ml The reference range for this test is specific to the anticoagulant and is not appropriate for monitoring patients on a DOAC protocol. Jazmin Lema MD HEMATOLOGY ORDERABLES Final Result Performing Organization Address [facility] Co de Phone Number [facility] CLIA # [id number] [address] [address] [place], [place] [address] * LACTIC ACID (12/06/2024 1:48 PM CDT) Only the most recent of3 resultswithin the time period is included. [facility] LACTIC ACID 2.0 <=2.0 mmol/L 12/06/2024 2:15 PM CDT [facility] Blood Venipuncture / Unknown 12/06/2024 1:48 PM CDT 12/06/2024 1:51 PM CDT Dustin HOPE CHEMISTRY ORDERABLES Final Re sult Performing Organization Address City/[facility]/ZIP Co de Phone Number [facility] CLIA # [id number] [address] [address] [place] [address] * LIPASE (12/06/2024 4:51 AM CDT) [facility] LIPASE 14 13 - 60 U/L 12/06/2024 1:17 PM CDT [facility] Blood Venipuncture / Unknown 12/06/2024 4:51 AM CDT 12/06/2024 4:59 AM CDT Dustin HOPE CHEMISTRY ORDERABLES Final Re sult [facility] # [id number] [facility] [address] [address] [place] [address] * XR ABDOMEN FOR FEEDING TUBE 1 [...] URINE CULTURE (12/05/2024 10:28 AM CDT) Pathologist [facility] CULTURE No growth 12/06/2024 9:43 AM CDT [facility] Urine URINE SPECIMEN OBTAINED BY CLEAN CATCH PROCEDURE / Unknown Collection / Unknown 12/05/2024 10:28 AM CDT 12/05/2024 10:32 AM CDT Walt Aguero MD MICROBIOLOGY - GENERAL ORDERABLES Final Result [facility] CLIA # [id number] [address] [place] [address] * (ABNORMAL) BASIC METABOLIC PANEL PLUS (ADD ON CMP TO BMP) (12/05/2024 8:54 AM CDT) TOTAL PROTEIN 6.0(L) 6.4 - 8.3 g/dL 12/05/2024 3:17 PM CDT [facility] ALBUMIN 3.8 3.5 - 5.2 g/dL 12/05/2024 3:17 PM CDT [facility] BILIRUBIN TOTAL 0.8 0.0 - 1.0 mg/dL 12/05/2024 3:17 PM CDT [facility] ALKALINE PHOSPHATASE 76 40 - 129 U/L 12/05/2024 3:17 PM CDT [facility] AST 60(H) 10 - 50 U/L 12/05/2024 3:17 PM CDT [facility] ALT 120(H) <=50 U/L 12/05/2024 3:17 PM CDT [facility] Blood Venipuncture / Unknown 12/05/2024 8:54 AM CDT 12/05/2024 9:11 AM CDT Dustin Michel ANP CHEMISTRY ORDERABLES Final Re sult Performing Organization Address [facility] de Phone Number [facility] CLIA # [id number] [address] [address] * (ABNORMAL) TROPONIN (12/05/2024 8:54 AM CDT) Only the most recent of2 resultswithin the time period is included. TROPONIN T, 5TH GEN 3,843(HH) <=15 ng/L 12/05/2024 9:53 AM CDT [facility] Blood Venipuncture / Unknown 12/05/2024 8:54 AM CDT 12/05/2024 9:11 AM CDT Narrative [facility] - 12/05/2024 9:53 AM CDT Troponin elevated. Dustin Michel ANP CHEMISTRY ORDERABLES Final Re sult Performing Organization Address City/[facility]/ZIP Co de Phone Number [facility] CLIA # [id number] [address] [address] * EKG 12-LEAD (12/05/2024 8:05 AM CDT) Only the most recent of5 resultswithin the time period is included. 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 : 1945 Requested By: Order Number: [id number] Reading MD: Bianca Kelly Measurements Intervals [place] Rate: 65 P: 96 SD: 0 QRS: -76 QRSD: 200 T: 95 QT: 496 QTc: 515 Interpretive Statements Ventricular-paced rhythm Abnormal ECG Electronically Signed On 12-05-2024 13:09:51 CDT by Bianca Kelly Procedure Note Provider, Historical - 12/05/[address] [address] Test Date: 2024-12-05 Pat Name: NISA RENAE Department: 12 Room: [address] [place] [address] Gender: Male Virtual Recruiter: [email or web address] : 1945 Requested By: Order Number: [id number] Reading : Bianca Kelly Measurements Intervals [place] Rate: 65 P: 96 SD: 0 QRS: -76 QRSD: 200 T: 95 [...] 136 - 145 mmol/L 12/05/2024 4:08 AM CDT [facility] POTASSIUM 5.3(H) 3.5 - 5.1 mmol/L 12/05/2024 4:08 AM T [facility] CHLORIDE 96(L) 98 - 107 mmol/L 12/05/2024 4:08 AM T [facility] CO2 22 22 - 29 mmol/L 12/05/2024 4:08 AM T [facility] CALCIUM 9.5 8.8 - 10.2 mg/dL 12/05/2024 4:08 AM T [facility] BUN 45(H) 8 - 23 mg/dL 12/05/2024 4:08 AM T [facility] CREATININE 3.93(H) 0.67 - 1.17 mg/dL 12/05/2024 4:08 AM T [facility] Comment:The GFR result is no t clinically significant on patients <18 or >70 years of age. GLUCOSE 291(H) 74 - 99 mg/dL 12/05/2024 4:08 AM [facility] GFR 15 mL/min/1. 73 sq meter 12/05/2024 4:08 AM [facility] Comment:eGFR calculated with 2020 CKD-EPI equation. Vegetarian diet, extremely high or low muscle mass, and may affect results. Cystatin C with Glomerular Filtration Rate is a suitable alternative for these patients. ANION GAP 16 9 - 20 mmol/L 12/05/2024 4:08 AM T [facility] Blood Venipuncture / Unknown 12/05/2024 3:27 AM CDT 12/05/2024 3:33 AM CDT us Tigist RUSSELL CHEMISTRY ORDERABLES Final Resu lt [facility] CLIA # [id number] [address] [place] [id number] * (ABNORMAL) CBC WITHOUT DIFFERENTIAL (12/04/2024 9:11 PM CDT) WBC 22.6(H) 4.8 - 10.8 K/uL 12/04/2024 9:18 PM CDT [facility] RBC 3.39(L) 4.60 - 6.20 M/uL 12/04/2024 9:18 PM CDT [facility] HEMOGLOBIN 10.6(L) 14.0 - 18.0 g/dL 12/04/2024 9:18 PM CDT [facility] HEMATOCRIT 34.3(L) 41.0 - 53.0 % 12/04/2024 9:18 PM CDT [facility] MCV 101.2 84.0 - 103.0 fL 12/04/2024 9:18 PM CDT [facility] MCH 31.3 27.0 - 34.0 pg 12/04/2024 9:18 PM CDT [facility] MCHC 30.9 30.0 - 35.0 g/dL 12/04/2024 9:18 PM CDT [facility] PLATELETS 97(L) 140 - 440 K/uL 12/04/2024 9:18 PM CDT [facility] MPV 10.5 8.9 - 12.8 fL 12/04/2024 9:18 PM CDT [facility] RDW 18.4(H) 11.0 - 14.5 % 12/04/2024 9:18 PM T [facility] RDW-STDEV 69.1(H) 37.0 - 54.0 fL 12/04/2024 9:18 PM T [facility] Blood Venipuncture / Unknown 12/04/2024 9:11 PM CDT 12/04/2024 9:15 PM CDT us Tigist RUSSELL HEMATOLOGY ORDERABLES Final Res ult [facility] CLIA # [id number] [address] [place] [address] [place] [address] * ECHOCARDIOGRAM W/ CONTRAST AGENT (12/04/2024 10:45 AM CDT) EJECTION FRACTION 26 INTERFACE SYSTEM 12/04/2024 8:57 AM CDT Narrative INTERFACE SYSTEM - 12/04/2024 11:13 AM CDT [facility] Cardiovascular Services Echocardiography Laboratory [address] [place] [address] Transthoracic Echocardiography Patient: Nisa Renae Study ID: ECHO COMPLETE - Gender: M : 1945 Age: 79 Room: [facility] Study Date: 12/04/2024 Pt Status: Inpatient Study Time: 08:57:28 AM CSN #: [id number] Ordering:Tigist Dodson Block Captain: Gagandeep Nava [facility] Indications and History: Hypotension or Hemodynamic Instability; [...] values outside specified reference range. [facility] Echo Labs are accredited with the Intersocietal Accreditation Commission - Echocardiography. Prepared and Electronically Authenticated Conrado Shearer Confirmed 12/04/2024 11:13 Procedure Note Conrado Shearer MD - 12/04/2024 [facility] Cardiovascular Services Echocardiography Laboratory [address] [place] [address] Transthoracic Echocardiography Patient: Nisa Renae Study ID: ECHO COMPLETE- Gender: M : 1945 Age: 79 Room: [facility] Study Date: 12/04/2024 Pt Status: Inpatient Study Time: 08:57:28 AM [facility] #: [id number] Ordering:Tigist Dodson Block Captain: Gagandeep Nava [facility] Indications and History: Hypotension or Hemodynamic Instability;Hypotension [...] values outside specified reference range. [facility] Echo Labs are accredited with theHavasu Regional Medical Centersocietal Accreditation Commission - Echocardiography. Prepared and Electronically Authenticated Conrado Shearer Confirmed 12/04/2024 11:13 us Tigist RUSSELL US ORDERABLES Final Result Performing Organization Address [facility]/ZIP Co de Phone Number INTERFACE SYSTEM Refer to clinic/hospital department * MRSA PCR RAPID SCREEN (12/04/2024 8:29 AM CDT) Pathologist [facility] MRSA PCR RESULT MRSA not detected MRSA not detected 12/04/2024 10:09 AM CDT [facility] Surveillance ANTERIOR NARES SWAB / Unknown Collection / Unknown 12/04/2024 8:29 AM CDT 12/04/2024 8:43 AM CDT Narrative [facility] - 12/04/2024 10:09 AM CDT This assay is used to detect Methicillin-Resistant S. aureus (MRSA) colonization of the nares. PLEASE NOTE: This test has not been approved to monitor effectiveness of MRSA decolonization. Residual DNA may temporarily be present after successful decolonization. This test was performed using an FDA approved screening methodology. us Tigist RUSSELL MICROBIOLOGY - GENERAL ORDERABL ES Final Result Performing Organization Address [facility]/ZIP Co de Phone Number [facility] CLIA # [id number] [address] [place] [address] * (ABNORMAL) URINALYSIS WITH REFLEX MICROSCOPIC (12/04/2024 8:28 AM CDT) COLOR UA Yellow Pale to Dark Yellow 12/04/2024 8:52 AM [facility] CLARITY UA Cloudy(A) Clear 12/04/2024 8:52 AM [facility] SPECIFIC GRAVITY UA 1.039(H) 1.003 - 1.035 12/04/2024 8:52 AM [facility] PH UA 6.0 5.0 - 8.0 12/04/2024 8:52 AM [facility] LEUKOCYTE ESTERASE UA 3+(A) Negative 12/04/2024 8:52 AM [facility] NITRITE UA Negative Negative 12/04/2024 8:52 AM [facility] PROTEIN UA 3+(A) Negative 12/04/2024 8:52 AM [facility] GLUCOSE UA 1+(A) Negative 12/04/2024 8:52 AM [facility] KETONES UA 1+(A) Negative 12/04/2024 8:52 AM [facility] UROBILINOGEN UA <2.0 <2.0 mg/dL 8:52 AM [facility] BILIRUBIN UA Negative Negative 12/04/2024 8:52 AM [facility] BLOOD UA 3+(A) Negative 12/04/2024 8:52 AM [facility] WBC UA >100(A) 0 - 2 /hpf 12/04/2024 8:52 AM [facility] RBC UA 51-100(A) 0 - 2 /hpf 12/04/2024 8:52 AM [facility] BACTERIA UA 2+(A) Negative /hpf 12/04/2024 8:52 AM [facility] EPITHELIAL CELLS, URINE 0-5 0 - 5 /hpf 12/04/2024 8:52 AM [facility] Urine URINE SPECIMEN OBTAINED BY CLEAN CATCH PROCEDURE / Unknown Collection / Unknown 12/04/2024 8:28 AM CDT 12/04/2024 8:44 AM CDT us Tigist RUSSELL URINE ORDERABLES Final Result Performing Organization Address [facility] Co de Phone Number [facility] CLIA # [id number] [address] [address] * (ABNORMAL) TROPONIN 6 HR, 5TH GEN (12/04/2024 7:50 AM CDT) TROPONIN T, 6 HR 5TH GEN 3,956(HH) <=15 ng/L 12/04/2024 9:04 AM CDT [facility] DELTA 6HR TROPONIN T % -10 See Interp. % 12/04/2024 9:04 AM CDT [facility] Blood Venipuncture / Unknown 12/04/2024 7:50 AM CDT 12/04/2024 8:23 AM CDT Narrative [facility] - 12/04/2024 9:04 AM CDT Troponin elevated. Delta not changing. us Tigist RUSSELL CHEMISTRY ORDERABLES Final Resu lt Performing Organization Address [facility] Phone Number [facility] CLIA # [id number] [address] [place] [address] * BLOOD CULTURE (12/04/2024 7:50 AM CDT) Only the most recent of2 resultswithin the time period is included. BLOOD CULTURE No growth 12/09/2024 9:31 AM CDT [facility] Blood (Peripheral) Venipuncture / Unknown 12/04/2024 7:50 AM CDT 12/04/2024 8:20 AM CDT us Tigist RUSSELL MICROBIOLOGY - GENERAL ORDERABL ES Final Result Performing Organization Address [facility] Co de Phone Number [facility] Just around Us [facility] CLIA # [id number] [address] [address] * (ABNORMAL) TROPONIN 2 HR, 5TH GEN (12/04/2024 3:33 AM CDT) TROPONIN T, 2 HR 5TH GEN 4,870(HH) <=15 ng/L 12/04/2024 4:55 AM CDT [facility] Just around Us [facility] DELTA 2HR TROPONIN T % 10 See Interp. % 12/04/2024 4:55 AM CDT [facility] Just around Us [facility] Blood Venipuncture / Unknown 12/04/2024 3:33 AM CDT 12/04/2024 3:37 AM CDT [facility] Just around Us [facility] - 12/04/2024 4:55 AM CDT Troponin elevated. Delta not changing. Tigist RUSSELL CHEMISTRY ORDERABLES Final Resu lt Performing Organization Address [facility]/ZIP Co de Phone Number [facility] Just around Us [facility] CLIA # [id number] [address] [address] * (ABNORMAL) TROPONIN BASELINE, 5TH GEN (12/04/2024 1:57 AM CDT) TROPONIN T, BASELINE 5TH GEN 4,417(HH) <=15 ng/L 12/04/2024 3:01 AM CDT [facility] Just around Us [facility] Blood Venipuncture / Unknown 12/04/2024 1:57 AM CDT 12/04/2024 2:00 AM CDT [facility] Just around Us [facility] - 12/04/2024 3:01 AM CDT Troponin elevated. Tigist RUSSELL CHEMISTRY ORDERABLES Final Resu lt [facility] CLIA # [id number] [address] [place] [address] * (ABNORMAL) PROCALCITONIN (12/04/2024 1:57 AM CDT) PROCALCITONIN 55.40(H) <=0.08 ng/mL 12/04/2024 2:53 AM CDT [facility] Blood Venipuncture / Unknown 12/04/2024 1:57 AM CDT 12/04/2024 2:00 AM CDT Narrative [facility] Just around Us [facility] - 12/04/2024 2:53 AM CDT The [...] ORDERABLES Final Resu lt Performing Organization Address City/[facility]/ZIP Co de Phone Number [facility] CLIA # [id number] [address] [address] * VANCOMYCIN LEVEL RANDOM (12/04/2024 1:57 AM CDT) VANCOMYCIN, RANDOM 19.7 5.0 - 50.0 ug/mL 12/04/2024 6:19 AM CDT [facility] Blood Venipuncture / Unknown 12/04/2024 1:57 AM CDT 12/04/2024 2:00 AM CDT Narrative [facility] - 12/04/2024 6:19 AM CDT Vancomycin Therapeutic Ranges: Vancomycin Trough: 10 - 20 mcg/mL Vancomycin Peak: 25 - 50 mcg/mL Jim Asif MD CHEMISTRY ORDERABL ES Final Result [facility] CLIA # [id number] [address] [place] [address] * PROCEDURE PHOTOGRAPHS (12/01/2024 10:48 AM CDT) Provider Scanning PROCEDURE/MINOR SURGICAL ORDER RANDAL Final Result * SD ANESTHESIA BLOCK PB PLACEHOLDER CHARGE (11/29/2024 8:07 [...] Type: Interscalene Laterality: Left Injection technique: Single-shot Foster Identification: ultrasound guided Local injected: Lidocaine 2% [...] VERIFICATION BLOOD GROUP (11/29/2024 6:48 AM CDT) ABO GROUP O 11/29/2024 7:18 AM CDT [facility] Just around Us [facility] RH (D) TYPE Positive 11/29/2024 7:18 AM CDT [facility] Just around Us [facility] Blood Venipuncture / Unknown 11/29/2024 6:48 AM CDT 11/29/2024 6:54 AM CDT Klarissa Flowers MD BLOOD BANK ORDERABLES Final Re sult [facility] Just around Us [facility] CLIA#[id number] [address] [place] [address], * (ABNORMAL) PROTIME-INR (11/29/2024 6:47 AM CDT) PROTIME 15.9(H) 12.7 - 14.9 Seconds 11/29/2024 7:02 AM CDT [facility] Just around Us [facility] INR 1.2 0.8 - 1.2 11/29/2024 7:02 AM T [facility] Just around Us [facility] Blood Venipuncture / Unknown 11/29/2024 6:47 AM CDT 11/29/2024 6:50 AM CDT Narrative [facility] - 11/29/2024 7:02 AM CDT Expected Values for INR: DVT/PE Goal INR 2.5; range 2.0 - 3.0 Valve Replacement Tissue Goal INR 2.5; range 2.0 - 3.0 Valve Replacement Mechanical Goal INR 3.0; range 2.5 - 3.5 POST-IL Goal INR 2.5; range 2.0 - 3.0 or Goal INR 3.0; range 2.5 - 3.5 Atrial Fibrillation Goal INR 2.5; range 2.0 - 3.0 Ischemic Stroke Goal INR 2.5; range 2.0 - 3.0 Klarissa Flowers MD HEMATOLOGY ORDERABLES Final Re sult Performing Organization Address [facility] de Phone Number [facility] Just around Us [facility] CLIA # [id number] [address] [place] [address] * TYPE AND SCREEN (11/29/2024 6:47 AM CDT) ABO GROUP O 11/29/2024 7:48 AM CDT [facility] RH (D) TYPE Positive 11/29/2024 7:48 AM CDT [facility] ANTIBODY SCREEN Negative 11/29/2024 7:48 AM CDT [facility] Blood Venipuncture / Unknown 11/29/2024 6:47 AM CDT 11/29/2024 6:50 AM CDT Klarissa Flowers MD BLOOD BANK ORDERABLES Edited R esult - Final Performing Organization Address [facility] Co de Phone Number [facility] Just around Us [facility] CLIA#[id number] [address] [place], [place] [address] [place] [address] * US DUPLEX PREOP VESS ASSESS LT (11/12/2024 11:13 AM CDT) Anatomical Region Laterality Modality Lower Extremity, Upper Extremity Ultrasound 11/12/2024 10:2 4 AM CDT Narrative 11/15/2024 11:17 AM CDT [facility] [address] [place] [address] [place] [address] Noninvasive Vascular Lab Upper Extremity Evaluation for Hemodialysis Access Patient: Nisa Renae Study ID: US DUPLEX PREOP Gender: M : 1945 Age: 79 Room: Height: 180cm Weight: 104.3kg BSA: 2.31m^2 Pt status: Outpatient Study Date: 11/12/2024 Study Time: 10:24:48 AM BSA: 2.31m^2 Ordering: Klarissa Flowers MD Interpreting:Janell Melgar Block Captain: Melissa Nava RVT Indications: Dx: Benign hypertension [...] evaluation was performed. Image quality was good. [facility] is accredited with the Intersocietal Commission for the Accreditation of Vascular Laboratories (ICAVL) Prepared and Electronically Authenticated Janell Melgar Confirmed 11/15/2024 11:17 Procedure Note Janell Melgar DO - 11/15/2024 [facility] [address] [place] [address] [address] [place] [address] Noninvasive Vascular Lab Upper Extremity Evaluation for Hemodialysis Access Patient: Nisa Renae Study ID: US DUPLEX PREOP Gender: M : 1945 Age: 79 Room: Height: 180cm Weight: 104.3kg BSA: 2.31m^2 Pt status: Outpatient Study Date: 11/12/2024 Study Time: 10:24:48 AM BSA: 2.31m^2 Ordering: Klarissa Flowers MD Interpreting:Janell Melgar Block Captain: Melissa Nava RVT Indications: Dx: Benign hypertension with ESRD (end-stage renaldisease) ([facility]) [I12.0, N18.6 (ICD-10-CM)] Summary Impression: 1. [...] evaluation was performed. Image quality was good. [facility] is accredited withthe Intersocietal Commission for the Accreditation of Vascular Laboratories (ICAVL) Prepared and Electronically Authenticated Janell Melgar Confirmed 11/15/2024 11:17 us Klarissa Flowers MD US ORDERABLES Final Result * SD PROGRAM EVAL IMPLANTABLE IN PERSN DUAL LD PACER (10/26/2024 11:10 AM CDT) Narrative [facility] - 10/26/2024 11:10 AM CDT Kelly Han 10/26/2024 11:10 AM Office Device Check By Vendor Director Of Aviation Date of Procedure: October 25, 2024 Capacity Planning Manager: [employer] Comments: Office check by [employer] retention representative in conjunction w/ EP office visit. Interrogation reviewed by provider. Please see scan for details. Procedure Note Kelly Han - 10/26/2024 11:10 AM CDT Office Device Check By Vendor Director Of Aviation Date of Procedure: October 25, 2024 Capacity Planning Manager: [employer] Comments: Office check by [employer] retention representative in conjunction w/ EPoffice visit. Interrogation reviewed by provider. Please see scan for details. us Sotero Alejandro MD CARDIAC SERVICES ORDERABLES Final Result Performing Organization Address City/[facility]/ZIP Co de Phone Number [facility] [address] [place] [address] * (ABNORMAL) MICROALBUMIN/CREATININE RATIO, RANDOM UR (03/29/2024 6:06 PM CDT) Pathologist [facility] Creatinine, Urine 140 20 - 320 mg/dL [...] PM CDT Performing Organization Information: Site ID: CT Name: [facility] Address: [address] [place] [address] Director: Tawanda Roca MD us Jillian Monge MD URINE ORDERABLES Final Result [facility] * LIPID RFLX (03/29/2024 1:24 AM CDT) CHOLESTEROL 134 <200 mg/dL 03/29/2024 3:43 AM CDT [facility] TRIGLYCERIDE 70 <150 mg/dL 03/29/2024 3:43 AM CDT [facility] HDL 51 40 - 59 mg/dL 03/29/2024 3:43 AM CDT [facility] LDL CALCULATED 69 <100 mg/dL 03/29/2024 3:43 AM CDT [facility] [facility] NON-HDL CHOLESTEROL 83 <130 mg/dL 03/29/2024 3:43 AM CDT [facility] Blood Venipuncture / Unknown 03/29/2024 1:24 AM CDT 03/29/2024 1:52 AM CDT Narrative [facility] - 03/29/2024 3:43 AM CDT TOTAL CHOLESTEROL [...] Reference Ranges for Lipid Panels (NCEP/AMA) . Jaciel Yuan MD CHEMISTRY ORDERABLES Final R esult [facility] CLIA # [id number] [address] [address] * (ABNORMAL) HEMOGLOBIN A1C (03/29/2024 1:24 AM CDT) HEMOGLOBIN A1C 7.1(H) <=5.6 % 03/29/2024 12:00 PM CDT [facility] EST. AVG GLUCOSE, A1C 157 mg/dL 03/29/2024 12:00 PM CDT [facility] Blood Venipuncture / Unknown 03/29/2024 1:24 AM CDT 03/29/2024 1:51 AM CDT Narrative [facility] - 03/29/2024 12:00 PM CDT HGB A1C INTERPRETATION NORMAL: <5.7% PRE-DIABETES: 5.7 - 6.4% DIABETES: 6.5% OR GREATER us Jaciel Yuan MD CHEMISTRY ORDERABLES Final R esult [facility] CLIA # [id number] [address] [address] from Last 3 Months or Most Recently Relevant to Health Maintenance Insurance MEDICARE PART A AND B [facility] RX GAN PLANS (INTERNAL) [facility] RX [facility] [employer] RX GENERIC COMMERCIAL Commercial [place] CC[place] [employer]UM Advance Directives For more information, please contact: [phone] * NO CPR (In Event of Cardiopulmonary [...] Non-Invasive (i.e. BiPAP, CPAP): Yes Care Teams Drop Board Worker Relationship Specialty Start Date End Date Paula Sandoval MD [address] [place] [phone] PCP - General Family Practice 10/18/24
--- OUTSIDE RECORDS SUMMARY | 2024-12-28 21:39 | XMS_ITS | Encounter Summary ---
Author Organization [facility] Address [address] [place] [address] Care Team Providers Care Prescription Clerk Lenses Name Role Phone Paula Sandoval MD Primary Care Provider + [phone] Encounter Details Date Type Department Care Team (Late st Contact Info) Description 12/21/2024 Orders Only [facility] Cancer and Hematology [place] [address] [place] [address] Umm Dotson, [address] [place] [address] CLL (chronic lymphocytic leukemia) ([facility]/HCC) (Primary Dx) Social History Tobacco Use Types [...] Info) Description 12/30/2024 10:15 AM CDT Appointment [facility] Services [address] [phone] 01/03/2025 3:30 PM CDT Video Visit [facility] Cancer and Hematology [place] [address] [address] Iqra Brito NP [address] [address] 01/17/2025 11:45 AM CDT Appointment [facility] [address] [address] 01/19/2025 3:00 PM CDT Office Visit [facility] Cancer and Hematology [place] [address] [address] Iqra Brito NP [address] [address] 01/21/2025 11:00 AM CDT Office Visit [facility] Cardiology [facility] [address] [facility] [address] [place] [address] Lyndsey Dorsey, MARCELLO [address] [place] [phone] 03/18/2025 11:30 AM CDT Office Visit [facility] [place] [address] [place] [phone] Klarissa Flowers MD [address] [place] [address] Scheduled Orders Name Type Priority Associated Diagnoses Orde r Schedule CBC WITH DIFFERENTIAL Lab Stat CLL (chronic lymphocytic leukemia) (CMS/HCC) Expected: 12/21/2024, Expires: 12/21/2025 COMPREHENSIVE METABOLIC PANEL Lab Stat CLL (chronic lymphocytic leukemia) (CMS/HCC) Expected: 12/21/2024 (Approximate), Expires: 12/21/2025 documented as of this encounter Visit Diagnoses Diagnosis CLL (chronic lymphocytic leukemia) (CMS/HCC)- Primary Chronic lymphoid leukemia, without mention of having achieved remission documented in this encounter Care Teams Prescription Clerk Lenses Relationship Specialty Start Date End Date Paula Sandoval MD [address] [place] [phone] PCP - General Family Practice 10/18/24 documented as of this encounter
--- OUTSIDE RECORDS SUMMARY | 2024-12-28 21:39 | XMS_ITS | Encounter Summary ---
Author Organization [facility] Address [address] [place] [address] Care Team Providers Care Finisher Hot Strip Name Role Phone Paula Sandoval MD Primary Care Provider + [phone] Encounter Details Date Type Department Care Team (Late st Contact Info) Description 12/23/2024 Orders Only [facility] Cancer and Hematology [place] [address] [place] [address] Umm Dotson, [address] [place] [address] CLL (chronic lymphocytic leukemia) (CMS/HCC) [...] on file documented as of this encounter Progress Notes * Dianne Crandall RN - 12/23/2024 12:50 PM CDT Images from the original note were not included. Script sent to [facility] Umm Dotson, Dianne Mckinney RN Caller: Unspecified (Today, 12:36 PM) Can you send in Jaypirca 50 mg daily documented in this encounter Plan of Treatment Upcoming Encounters Date Type Department Care Team (Late st Contact Info) Description 12/30/2024 10:15 AM CDT Appointment [facility] Laboratory Services [address] [facility] [address] [address] 01/03/2025 3:30 PM CDT Video Visit [facility] Cancer and Hematology [place] [address] [address] Iqra Brito NP [address] [address] 01/17/2025 11:45 AM CDT Appointment [facility] [employer] [facility] [address] [address] 01/19/2025 3:00 PM CDT Office Visit [facility] Cancer [facility] [address] [address] Iqra Brito NP [address] [address] 01/21/2025 11:00 AM CDT Office Visit [facility] [address] [facility] [address] [place] [address] Lyndsey Dorsey, MARCELLO [address] [place] [address] 03/18/2025 11:30 AM CDT Office Visit [facility] Vascular Surgery [place] [address] [place] [address] Klarissa Flowers MD [address] [place] [address] documented as of this encounter Visit Diagnoses Diagnosis CLL (chronic lymphocytic leukemia) ([facility]/HCC)- Primary Chronic lymphoid leukemia, without mention of having achieved remission documented in this encounter Care Teams Finisher Hot Strip Relationship Specialty Start Date End Date Paula Sandoval MD [address] [place] [phone] PCP - General Family Practice 10/18/24 documented as of this encounter
--- OUTSIDE RECORDS SUMMARY | 2024-12-28 21:39 | XMS_ITS ---
Author Organization [facility] Address [address] [place] [address] Care Team Providers Care Cost Estimating Clerk Name Role Phone Unavailable Unavailable Unavailable Allergies, Adverse Reactions, Alerts Allergy Name Allergy Type Status Severity Reaction(s) Onset Date Inactive Date Treating Clinician Comments Iodinated Contrast Media Allergy Active Unknown 10-05 03:03: 42 metFORMIN Allergy Active Unknown 10-05 03:03: 08 levoFLOXacin Allergy Active Unknown 10-05 03:02: 45 Allopurinol Allergy Active Unknown 10-05 03:02: 09 Medications Ordered Medication Name Filled Medication Name Start Date Stop Date Current Medication? Ordering Clinician Indication Dosage Frequency Signature (SIG) Comments Components Venofer 10-07 05:00: 00 Yes [id number] Number of Repeats Allowed: Frequency: One time a weekDosesO rdered: Maintenanc e Dose 50 Milligram Route: Intravenou s heparin sodium, porcine 10-05 03:17: 33 Yes [id number] Number of Repeats Allowed: Frequency: Every Dialysis TreatmentD osesOrdere d: Post CVC Instillati on 2000 Units 1:1000 Units/mLRo grindstone: Intracathe terDosesOr dered: Post CVC Instillati on 2000 Units 1:1000 Units/mLRo grindstone: Intracathe ter heparin sodium, porcine 10-05 03:17: 10 Yes [id number] Number of Repeats Allowed: Frequency: Every Dialysis TreatmentD osesOrdere d: Loading Dose 5000 Units 1:1000 Units/mLRo grindstone: Intravenou s Problems This patient has no known problems. Procedures Procedure Date / Time Performed Performing Clinician Miriam ce Details Central Venous Catheter (CVC) 2024-04-07 05:00:00 Access Site Chest (Right) Access Use Start Date 2024-10-05 00:00:0 0 DIALYSIS TREATMENT INFORMATION Conventional Hemodialysis Date Type Treatment Start Date Treatment End Date Pre-Treatment Vitals Post-Treatment Vitals Weight Gain BFR DFR Actual UF Dialysis Access October 16, 2024 In-Ce nter Hemod ialys is Treat ment 2024-10-16 T16:01:41. 000Z 2024-10-16 T20:01:41. 000Z BP Sitting (Pre-Dialysis) 120/61 mmHg BP Sitting (Post-D ialysis ) 124/ 64 mmHg BP Standing (Pre-Dialysis) 112/54 mmHg Sitting Heart Rate Post-Dialysis 76 BPM Sitting Heart Rate Pre-Dialysis 98 BPM Standing Heart Rate Pre-Dialysis 102 BPM Temperature Pre-Dialysis 98.1 degF October 14, 2024 In-Center Hemodialysis Treatment [id number]:52:21.000Z 3292-31-12L01:55:21.000Z BP Sitting (Pre-Dialysis) 138/65 mmHg BP Sitting (Post-Dialysis) 132/63 mmHg Concurrent Access: falseCentral Venous Catheter (CVC) Chest (Right) Arterial BP Standing (Pre-Dialysis) 132/60 mmHg BP Standing (P ost-Dialysis) 119/54 mmHg Sitting Heart Rate Pre-Dialysis 67 BPM Sitting Heart Rate Post-Dialysis 77 BPM Standing Heart Rate Pre-Dialysis 91 BPM Standing Heart Rate Post-Dialysis 87 BPM Temperature Pre-Dialysis 97.3 degF Temperature Post -Dialysis 97.3 degF October 12, 2024 In-Center Hemodialysis Treatment [id number]:49:00.000Z 1924-48-04Z93:53:35.000Z BP Sitting (Pre-Dialysis) 110/70 mmHg BP Sitting (Post-Dialysis) 132/62 mmHg Concurrent Access: falseCentral Venous Catheter (CVC) Chest (Right) Arterial BP Standing (Pre-Dialysis) 112/52 mmHg BP Standing (P ost-Dialysis) 130/85 mmHg Sitting Heart Rate Pre-Dialysis 95 BPM Sitting Heart Rate Post-Dialysis 76 BPM Standing Heart Rate Pre-Dialysis 106 BPM Standing Heart Rate Post-Dialysis 67 BPM Temperature Pre-Dialysis 98.1 degF Temperature Post -Dialysis 97.9 degF October 09, 2024 In-Center Hemodialysis Treatment [id number]:30:17.000Z 7440-88-82T23:34:16.000Z BP Sitting (Pre-Dialysis) 139/67 mmHg BP Sitting (Post-Dialysis) 130/67 mmHg Concurrent Access: falseCentral Venous Catheter (CVC) Chest (Right) Arterial BP Standing (Pre-Dialysis) 134/66 mmHg BP Standing (P ost-Dialysis) 132/56 mmHg Sitting Heart Rate Pre-Dialysis 89 BPM Sitting Heart Rate Post-Dialysis 75 BPM Standing Heart Rate Pre-Dialysis 84 BPM Standing Heart Rate Post-Dialysis 81 BPM Temperature Pre-Dialysis 97.7 degF Temperature Post -Dialysis 97 degF October 07, 2024 In-Center Hemodialysis Treatment [id number]:07:38.000Z [id number]:13:39.000Z BP Sitting (Pre-Dialysis) 126/60 mmHg BP Sitting (Post-Dialysis) 134/64 mmHg Concurrent Access: falseCentral Venous Catheter (CVC) Chest (Right) Arterial BP Standing (Pre-Dialysis) 122/59 mmHg Sitting Heart Rate Post-Dialysis 75 BPM Sitting Heart Rate Pre-Dialysis 86 BPM Standing Heart Rate Pre-Dialysis 95 BPM Temperature Pre-Dialysis 98.1 degF October 05, 2024 In-Center Hemodialysis Treatment [id number]:14:11.000Z [id number]:17:11.000Z BP Sitting (Pre-Dialysis) 116/75 mmHg BP Sitting (Post-Dialysis) 119/64 mmHg Concurrent Access: falseCentral Venous Catheter (CVC) Chest (Right) Arterial BP Standing (Pre-Dialysis) 118/56 mmHg Sitting Heart Rate Post-Dialysis 69 BPM Sitting Heart Rate Pre-Dialysis 87 BPM Standing Heart Rate Pre-Dialysis 89 BPM Temperature Pre-Dialysis 97.8 degF Encounters No encounter information to report
--- OUTSIDE RECORDS SUMMARY | 2024-12-28 21:40 | XMS_ITS ---
Author Name [facility] Address [address] [place] [address] Phone [phone] Organization [facility] e, NA DOCUMENT DISCLAIMER Multiple document versions may exist, please be sure you review the latest version. The information in the [facility] Emergency Department Continuity of Care Document represents a summary [...] of COVID-19 Z86.16 Active April 06, 2024 [facility] (current) use of insulin Z79.4 Active April 06, 2024 Benign prostatic hyperplasia without lower urinary tract symptoms N40.0 April 06, 2024 Other specified disorders of kidney and ureter N28.89 April 06, 2024 Chronic kidney disease, stage 4 (severe) N18.4 April 06, 2024 Heart failure, unspecified I50.9 Active O ctober 2023 Atherosclerotic heart diseas e of [place] coronary artery without angina pectoris I25.10 Active [...] November 16, 2024 November 15, 2025 Discontinued Home Medications Medication Instructions Dosage Route Start Date End Date Stat us atorvastatin 80 mg Take by mouth once [...] 13, 2024 Active fluticasone propionate 50 mcg/actuation [place] into both nostrils twice a day 1 spray NASAL April 13, 2024 Active glucosamine-chondr oitin 500-400 mg Take by mouth once a [...] 1 tablet ORAL August 12, 2024 Active VITAL SIGNS Post-Treatment Vital Signs Vital Sign Value Date / Time Blood Pressure-sitting 117/64 mmHg December 25, 2024 09:30 AM Blood Pressure-standing 135/56 mmHg December 25, 2024 09:30 AM Heart Rate 92 beats per minute December 25 09:30 AM Respiratory Rate 18 breaths per minute December 25, 2024 09:30 AM Temperature 97.3 deg. F December 25, 2024 09 :30 AM Weight Vital Sign Value Date / Time Estimated Dry Weight 104.1 kg December 23 11:59 PM Pre-Dialysis 105.70 kg December 25, 2024 09 :30 AM Post-Dialysis 104.70 kg December 25, 2024 09 :30 AM Other Other Value Date / Time Height 177.8 cm April 07, 2024 12:00 AM Body Mass Index 32.86 kg/m2 December 14, 2024 02 :03 PM [facility] Tuberculosis Testing TST Date Administered TST Date Read TST Result 08/31/2024 09/02/2024 Negative (<5) mm LAB RESULTS Hematology Result Type Result Value Relevant Referen ce Range Interpretation Date WBC (No Diff) 45.72 1000/mcL 4.80 - 10.80 1000/mcL High July 29, 2024 Platelets 73 1000/mcL 130 - 400 1000/mcL Low [email or web address] TIBC (Calc) 239 mcg/dL 185 - 515 mcg/dL - 2024 Transferrin Sat. (Calc) 35 % 20 - 55 % - July 29 Neutrophils 4.8 % 40.0 - 75.0 % Low July UIBC/TIBC 155 mcg/dL 155 - 355 mcg/dL - July 29, 2024 Folate, Serum > 24.0 ng/mL No Reference Ran ge Provided - August 26, 2024 Ferritin 197 ng/mL 22 - 322 ng/mL - August 26, 2024 Neutrophils 4.5 % 40.0 - 75.0 % Low August 26, 2024 Transferrin Sat. (Calc) 33 % 20 - 55 % - August 26, 2024 TIBC (Calc) 253 mcg/dL 185 - 515 mcg/dL - August UIBC/TIBC 169 mcg/dL 155 - 355 mcg/dL - August WBC (No Diff) 57.11 1000/mcL 4.80 - 10.80 1000/mcL High August 26, 2024 Platelets 80 1000/mcL 130 - 400 1000/mcL Low August 26, 2024 Atypical Lymphs 7 % 0 - 4 % High September 23, 2024 Blast Cells 11 % 0 - 0 % High September 23 Neutrophils 4 % 40 - 75 % Low September 23 WBC (No Diff) 30.36 1000/mcL 4.80 - 10.80 1000/mcL High September 23, 2024 Transferrin Sat. (Calc) 36 % 20 - 55 % - September 23, 2024 UIBC/TIBC 139 mcg/dL 155 - 355 mcg/dL Low September TIBC (Calc) 216 mcg/dL 185 - 515 mcg/dL - September Platelets 40 1000/mcL 130 - 400 1000/mcL Low September 23, 2024 Bands 1 % 0 - 4 % - September 23, 2024 Hemoglobin x 3 30.3 % 42.0 - 54.0 % Low September 212024 Hemoglobin x 3 28.5 % 42.0 - 54.0 % Low October 21, 2024 UIBC/TIBC 197 mcg/dL 155 - 355 mcg/dL - October 28, 2024 Iron 62 mcg/dL 45 - 160 mcg/dL - October 28, 025 Monocytes 2 % 3 - 10 % Low October 28, 2024 Lymphocytes 71 % 19 - 48 % High October 28, 2024 Atypical Lymphs 8 % 0 - 4 % High October 28 025 Bands 2 % 0 - 4 % [...] - 36.0 g/dL - October 28, 2024 Transferrin Sat. (Calc) 24 % 20 - [...] - 54.0 % Low November 18, 2024 Ferritin 582 ng/mL 22 - 322 ng/mL High November 25 025 Hemoglobin x 3 31.5 % 42.0 - 54.0 % Low November Platelets 108 1000/mcL 130 - 400 1000/mcL Low November 25, 2024 RDW 17.4 % 11.5 - 14.5 % High November 25 MCH 31.6 pg 27.0 - 31.0 pg [...] Lymphocytes 86.8 % 19.0 - 48.0 % November 25 Monocytes 0.1 % 3.0 - 10.0 % November 25 Neutrophils 4.8 % 40.0 - 75.0 % Low November 25 Iron 109 mcg/dL 45 - 160 mcg/dL - November 25, 2024 UIBC/TIBC 113 mcg/dL 155 - 355 mcg/dL Low November 25, 2024 TIBC (Calc) 222 mcg/dL 185 - 515 mcg/dL - November Transferrin Sat. (Calc) 49 % 20 - 55 % - November 25, 2024 HGB 9.4 g/dL 14.0 - 18.0 g/dL Low December 02, 2024 Ferritin 516 ng/mL 22 - 322 ng/mL High December 02 Hemoglobin x 3 28.2 % 42.0 - 54.0 % Low November HGB 6.9 g/dL 14.0 - 18.0 g/dL Critically low December 14, 2024 Hemoglobin x 3 20.7 % 42.0 - 54.0 % Low November HGB 8.9 g/dL 14.0 - 18.0 g/dL Low December 21, 2024 Hemoglobin x 3 26.7 % 42.0 - 54.0 % Low December Metabolic/Renal Result Type Result Value Relevant Reference Range Interpre tation Date Hemoglobin A1c 7.5 % 4.8 - 5.9 % High August 26, 2024 Vitamin B12 493 pg/mL 211 - 911 pg/mL - August URR, Calc 76 % 65 - 80 [...] mEq/L 136 - 145 mEq/L - October 28 BUN 50 mg/dL 6 - 19 mg/dL [...] 96 - 108 mEq/L - November 25, Bicarbonate 25 mEq/L 22 - 29 mEq/L - November 25, Hemoglobin A1c 7.1 % 4.8 - 5.9 % High November 25, 2024 HD Adequacy Result Type Result Value Relevant Referen ce Range Interpretation Date Krt/V 0.49 No Reference Ran ge Provided - July 29, 2024 Krt/V 0.51 No Reference Ran ge Provided - August 26, 2024 Krt/V 0.00 No Reference Ran ge Provided - September 23, 2024 wstdKt/V, residual 0.0 No Reference Range Provided - October 28, 2024 wstdKt/V without residual 2.5 No Reference Range Provided - October 28, 2024 Krt/V 0.00 No Reference Ran ge Provided - October 28, 2024 eKt/V ([place]) 1.41 No Reference Range Provided - October 28, 2024 spKt/V Gotch 1.65 No Reference Ran ge Provided - October 28, 2024 wstdKt/V 2.5 No Reference Ran ge Provided - October 28, 2024 spKt/V ([place]augirdas II) 1.62 No Reference Range Provided - October 28, 2024 spKt/V (Daugirdas II) 1.56 No Reference Range Provided - November 25, 2024 wstdKt/V, residual 0.0 No Reference Range Provided - November 25, 2024 spKt/V Gotch 1.56 No Reference Ran ge Provided - November 25, 2024 eKt/V ([place]) 1.36 No Reference Range Provided - November 25, 2024 wstdKt/V without residual 2.5 No Reference Range Provided - November 25, 2024 Krt/V 0.00 No Reference Ran ge Provided - November 25, 2024 wstdKt/V 2.5 [...] 275 pg/mL 16 - 80 pg/mL High [facility] 2024 Vitamin D 1,25 Dihydroxy 34.3 pg/mL 19.9 - 79.3 pg/mL - August 26, 2024 Corrected Ca x P Product 46 0 - 54 - October 28, 2024 Ca x P Product 45 0 - 54 - October 28 Phosphorus 5.1 mg/dL 2.6 - 4.5 mg/dL High October 28 Calcium, Total 8.9 mg/dL 8.4 - 10.2 mg/dL - October 28, 2024 Calcium, Total 8.6 mg/dL 8.4 - 10.2 mg/dL - November 25, 2024 Phosphorus 4.8 mg/dL 2.6 - 4.5 mg/dL High November 25, 2024 Ca x P Product 41 0 - 54 - November 25, 025 Alkaline Phosphatase 103 U/L 40 - 129 U/L - 2024 PTH-Intact, Plasma 432 pg/mL 16 - 80 pg/mL High Nov Corrected Ca x P Product 42 0 - 54 - November 25, 2024 Magnesium 2.3 mg/dL 1.6 - 2.6 mg/dL - November 25, 2024 Liver/Nutrition Result Type Result Value Relevant Reference Range Interpre tation Date eNPCR 0.86 No Reference Range Provided - October 28, 2024 A/G Ratio 1.8 1.0 - 2.0 - October 28, 2024 Globulin (Calc) 2.2 g/dL 2.0 - 4.0 g/dL - October Albumin (BCG) 3.9 g/dL 3.5 - 5.2 g/dL - October 28, 2024 Total Protein 6.1 g/dL 6.0 - 8.5 g/dL - October 28, 2024 Glucose 136 mg/dL 70 - 100 mg/dL High October 28 eNPCR 0.71 No Reference Range Provided - November 25, 2024 Total Protein 6.1 g/dL 6.0 - 8.5 g/dL - November Albumin (BCG) 3.9 g/dL 3.5 - 5.2 g/dL - November Globulin (Calc) 2.2 g/dL 2.0 - 4.0 g/dL - November 25, 2024 A/G Ratio 1.8 1.0 - 2.0 - November 25, 2024 Glucose 209 mg/dL 70 - 100 mg/dL High November 25 Lipid Result Type Result Value Relevant Referen ce Range Interpretation Date LDL, (Calculated) 32 mg/dL 0 - 99 mg/dL - August 26, 2024 VLDL (Calculated) 35 mg/dL 10 - 30 mg/dL High Cesar 2024 Cholesterol HDL Ratio 2.8 0.0 - [...] Creatinine, Urine 85.2 mg/dL No Reference R rivera Provided - April 20, 2024 Total Creatinine, [...] Hemodialysis Data Element Value Order Date/Time December 23, 2024 Frequency 3X Week Treatment Days TueThuSat Dialyzer 180NRe Optiflux Treatment Time (Total Minutes) 240 min Blood Flow Rate (mL/min) 450 mL/min Dialysate Flow Rate Manual 800 Estimated Dry Weight 104.1 kg Dialysate Concentrate 3.0 K, 2.5 Ca, 1.0 Mg, 100 Dextrose (N3251) Sodium (mEq/L) 138 mEq/L Bicarb Machine Setting (mEq/L) 32 mEq/L Dialysis Access Hemodialysis-CV Cath eter-Tunneled, Chest, Right Jugular Access Placed on April 01, 2024 IMMUNIZATIONS Vaccine Date Dose Route Status HEPLISAV-B, Series 4 of 4 August 26, 2024 20.0 mcg Intram uscular Completed HEPLISAV-B, Series 1 of 4 April 29, 2024 20.0 mcg Int ramuscular Completed TRANSPLANT WAITLIST STATUS No Information on Transplant Waitlist Status ADVANCE DIRECTIVES Directive Description Ordered By Effective Date Resuscitation status Do Not Resuscitate (DNR) [place] Apr 09, 2024 DIALYSIS TREATMENTS Conventional Hemodialysis Date Pre-Treatment Vitals Post-Treatment Malissa ls Duration (hr) BFR (mL/min) Dialysate Dialyzer Dialysis Access Meds Admin December 18, 2024 Weight 107.20 kg Weight 105.70 kg 04:01:00 460 3.0 K, 2.5 Ca, 1.0 Mg, 100 Dextrose (N3251) 180nre Optifl ux Blood Pressure-sitting 134/56 mmHg Blood Pressure-sit ting 118/46 mmHg Heart Rate 65 beats per minute Blood Pressure-standi ng 133/54 mmHg Respiratory Rate 16 breaths per minute Heart Rate 63 beats per minute Temperature 97.6 deg. F Respiratory Rate 18 breaths per minute - - Temperature 97.9 deg. F December 21, 2024 Weight 106.80 kg Weight 104.00 kg 04:01:00 460 3.0 K, 2.5 Ca, [...] Vitamin D (Calcitriol) Oral; 0.25mcg,Oral Blood Pressure-sitting 115/54 mmHg Blood Pressure-sit ting 129/85 mmHg Heart Rate 70 beats per minute Blood Pressure-standi ng 138/53 mmHg Respiratory Rate 18 breaths per minute Heart Rate 67 beats per minute Temperature 96.8 deg. F Respiratory Rate 16 breaths per minute - - Temperature 97.6 deg. F December 25, 2024 Weight 105.70 kg Weight 104.70 kg 04:02:00 460 3.0 K, 2.5 Ca, 1.0 Mg, [...] Vitamin D (Calcitriol) Oral; 0.25mcg,Oral Blood Pressure-sitting 135/64 mmHg Blood Pressure-sit ting 117/64 mmHg Heart Rate 95 beats per minute Blood Pressure-standi ng 135/56 mmHg Respiratory Rate 16 breaths per minute Heart Rate 92 beats per minute Temperature 97.6 deg. F Respiratory Rate 18 breaths per minute - - Temperature 97.3 deg. F
--- OUTSIDE RECORDS SUMMARY | 2024-12-28 21:40 | XMS_ITS | Patient Health Record ---
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) Active confirmed Problem 555886242 Type 2 diabetes mellitus without complications (E11.9) Active confirmed Problem 633869288817225 Hypertensive chr onic kidney disease with stage 1 through stage 4 chronic kidney disease, or unspecified chronic kidney disease (I12.9) Active confirmed Problem Chronic kidney disease stage 4 (083559884) Chronic kidney disease, stage 4 (severe) (N18.4) Active confirmed Problem 09603101 Secondary hyperparathyroidism of renal origin (N25.81) Active confirmed Problem Essential hypertension (21959545) HTN (hypertension), benign (I10) Active confirmed Problem Chronic kidney disease stage 4 (135074614) CKD (chronic kidney disease), stage IV (N18.4) Active confirmed Problem Hyperparathyroidism (72356008) Hyperparathyroidism (E21.3) Active confirmed Problem 35985160 Hypertension, be nign (I10) Active confirmed Problem Chronic lymphoid leukemia, disease (66091421) CLL (chronic lymphocytic leukemia) (C91.10) Active confirmed Problem Chronic kidney disease stage 4 (625687023) Chronic kidney disease, stage IV (severe) (N18.4) Active confirmed Problem 550301357 BPH NOS w ur obs/LUTS (N40.1) Active confirmed Problem 491923277269986 Chronic kidney disease, stage 3a (N18.31) Active confirmed Vital Signs Heart Rate 95 /min 2024 Temperature 98.2 degrees Fahrenheit 2024 Height-cm 180.34 cm 2024 Oximetry 98 % 2024 Blood pressure diastolic 69 mm Hg 2024 Weight-kg 110.5 kg 2024 Height 71 in 2024 Blood pressure systolic 152 mm Hg 2024 Weight 243.61 lbs 2024 BMI 33.97 kg/m2 2024 Encounters Encounter Location Date Provider Diagnosis Formerly [facility] [address] [address] 2024 Tito Leone Chronic kidney disea se, [...] without complications E11.9 and Former smoker Z87.891 Formerly [facility] [address] [place] [address] 01/08/2024 Sally Haney Formerly [facility] [address] [place] [address] 02/03/2024 Sally Haney Hypertensive chronic kidney disease with stage 1 through stage 4 chronic kidney disease, or unspecified chronic kidney disease I12.9 ; Chronic kidney disease, stage IV (severe) N18.4 ; 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 ; Non-nephrotic range proteinuria R80.9 ; Asymptomatic hyperuricemia E79.0 and Secondary hyperparathyroidism of renal origin N25.81 Formerly [facility] [address] [place] [address] 03/09/2024 Tito Leone [facility] [address] [place] [address] 07/16/2024 Tito Leone [facility] [address] [place] [address] 07/19/2024 Tito Leone Assessments Encounter Date Diagnosis (ICD Code) Assessment [...] 02/03/2024 Non-nephrotic range proteinuria (ICD-10 - R80.9) 2024 Hyperkalemia (ICD-10 - E87.5) CKD is stable. HTN is controlled. Hyperkalemia is controlled. Edema is worse, likely secondary to steroids. SHPTH is at goal. Anemia is at goal and is secondary to CKD and CLL, which is being managed by oncology. Proteinuria has progressed and is now nephortic. Microscopic hematuria is recurrent, possibly due to zanubrutinib and Plavix. Hyperuricemia is asymptomatic. 02/03/2024 Asymptomatic hyperuricemia (ICD-10 - E79.0) 2024 Anemia in neoplastic disease (ICD-10 - [...] up in 3 months with labs at [facility] BMP, mag, uric acid, phos, PTH, hgb, [...] Name Order Date Basic Metabolic Panel (BMP) 33112 2023 Hemoglobin 32125 09/30/2023 Magnesium (B) 31812 09/30/2023 Phosphorus (B) 27604 09/30/2023 Protein (U) Random 33088 09/30/2023 Uric Acid (B) 60896 09/30/2023 Creatinine (U) 69648 09/30/2023 UA Reflex Micro, Reflex Cult 33688, 8101 5, 73977 09/30/2023 PTH Intact 47920 09/30/2023 Basic Metabolic Panel (BMP) 72996 2020 Phosphorus (B) 68640 12/07/2020 PTH Intact 40538 12/07/2020 Basic Metabolic Panel (BMP) 40940 2022 Ferritin 04259 06/18/2023 Hemoglobin 86856 06/18/2023 Iron Binding Capacity Total 98097 2022 Iron Level 08030 06/18/2023 Magnesium (B) 26319 06/18/2023 Phosphorus (B) 97986 06/18/2023 Protein (U) Random 26469 06/18/2023 Uric Acid (B) 93119 06/18/2023 Creatinine (U) 98671 06/18/2023 UA Reflex Micro, Reflex Cult 33592, 8101 5, 81768 06/18/2023 PTH Intact 08046 06/18/2023 Albumin 19809 02/03/2024 Basic Metabolic Panel (BMP) 16849 2023 Ferritin 81664 02/03/2024 Hemoglobin 52761 02/03/2024 Iron Binding Capacity Total 90070 2023 Iron Level 55484 02/03/2024 Magnesium (B) 91089 02/03/2024 Phosphorus (B) 89876 02/03/2024 Protein (U) Random 80438 02/03/2024 Uric Acid (B) 92538 02/03/2024 Vitamin D Total (B) 28258 02/03/2024 Creatinine (U) 83549 02/03/2024 UA Reflex Micro, Reflex Cult 33490, 8101 5, 03489 02/03/2024 PTH Intact 43327 02/03/2024 % Iron Saturation (Fe & TIBC)--94265,835 50 02/03/2024 Future Test Test Name Order Date Basic Metabolic Panel (BMP) 74154 2023 CBC w\ Auto Diff 62473 06/17/2024 Ferritin 14984 06/17/2024 Hemoglobin 05337 06/17/2024 Magnesium (B) 76894 06/17/2024 Phosphorus (B) 94675 06/17/2024 Protein (U) Random 73841 06/17/2024 Uric Acid (B) 40577 06/17/2024 Microalbumin (U) Random 56816 06/17/2024 Creatinine (U) 26485 06/17/2024 UA Reflex Micro, Reflex Cult 58422, 8101 5, 93049 06/17/2024 PTH Intact 37370 06/17/2024 % Iron Saturation (Fe & TIBC)--90509,835 50 06/17/2024 Insurance Providers Payer Name Payer Address Payer Phone Subscriber Number Group Number Insured Name Patient Relationship to Insured Coverage Start Date Coverage End Date [employer] [address] [place] [address] [id number] Valente Renae Self - patient is the insured Medical (General) History Medical History History ICD Code Allergic rhinitis Benign prostatic hyperplasia (BPH) Coronary artery disease Chronic lymphocytic leukemia GERD Hyperlipidemia Hypertension Type II diabetes Diabetic nephropathy hearing loss COVID (12/2020) Stage IV CKD Hyperkalemia Anemia Secondary hyperparathyroidism of renal o rigin Metabolic acidosis Hyperuricemia Surgical History Surgery Date(Month/Year) 4v-CABG coronary stents x2 appendectomy Hospitalization History Reason Date(Month/Year) see surgical
--- OUTSIDE RECORDS SUMMARY | 2024-12-28 21:40 | XMS_ITS | Encounter Summary ---
Author Organization [facility] Address [address] [place] [address] Care Team Providers Care Binder Stripper Machine Name Role Phone Paula Sandoval MD Primary Care Provider + [phone] Reason for Visit * Reason Onset Date Comments Appointment Notification 05/25/2024 Needs a different appointment time 05/25/2024 Encounter Details Date Type Department Care Team (Late st Contact Info) Description 05/25/2024 Telephone [facility] [address] [place] [address] Eugenie Mederos, ALL [address] [facility] [address] [place] [phone] Appointment Notification; Needs a different appointment [...] due to the long drive in from [place] Please assist . Thank you Cardiology Diaper Machine Tender: Kathi Putnam HELP DESK ANALYST documented in this encounter Plan of Treatment Upcoming Encounters Date Type Department Care Team (Late st Contact Info) Description 12/30/2024 10:15 AM CDT Appointment [facility] Services [address]) [address] [phone] 01/03/2025 3:30 PM CDT Video Visit [facility] [place] [address] [phone] Iqra Brito NP [address] [address] 01/17/2025 11:45 AM CDT Appointment [facility] [address] [phone] 01/19/2025 3:00 PM CDT Office Visit [facility] [place] [address] [place] [phone] Iqra Brito NP [address] [place] [phone] 01/21/2025 11:00 AM CDT Office Visit [facility] [address] [place] [address] Lyndsey Dorsey NP [address] [place] [address] 03/18/2025 11:30 AM CDT Office Visit [facility] V[facility] Surgery [place] [address] [place] [address] Klarissa Flowers MD [address] [place] [address] documented as of this encounter Visit Diagnoses Not on filedocumented in this encounter Care Teams Binder Stripper Machine Relationship Specialty Start Date End Date Paula Sandoval MD [address] [place] [phone] PCP - General Family Practice 10/18/24 documented as of this encounter
[2024-12-28 21:59] VITALS: BP 117/58; PULSE 86; RESP 20; TEMP 36.7; O2SAT 95; BMI 32.9
--- NOTE | 2024-12-28 22:04 | XRR_ITS ---
PROCEDURE INFORMATION: Exam: XR Chest Exam date and time: 12/28/2024 11:05 PM Age: 79 years old Clinical indication: Dyspnea; Prior surgery; Surgery date: 6+ months; Surgery type: Dialysis cath and pacer; Additional info: Shortness of breath, recent pneumonia TECHNIQUE: Imaging protocol: Radiologic exam of the chest. Views: 1 view. COMPARISON: CT angio chest PE protcl [id number] 12/03/2024 8:24 PM FINDINGS: Tubes, catheters and devices: Pacemaker on the left. Right central venous catheter in the right atrium. Lungs: Bibasilar atelectasis. Pleural spaces: Small bilateral pleural effusion. No pneumothorax. Heart/Mediastinum: Surgical change in the mediastinum . Bones/joints: Unremarkable. XR/XR chest 1V portable [id number] IMPRESSION: 1. Bibasilar atelectasis. 2. Small bilateral pleural effusion.
--- NOTE | 2024-12-28 22:04 | ECG_ITS ---
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 Measurements Intervals [place] Rate: 86 P: 90 NH: 273 QRS: 253 QRSD: 137 T: 60 QT: 396 QTc: 475 Interpretive Statements SINUS RHYTHM WITH FIRST DEGREE AV BLOCK INTRAVENTRICULAR CONDUCTION DELAY [130+ ms QRS DURATION] RIGHT VENTRICULAR HYPERTROPHY [SOME/ALL OF: PROMINENT R IN V1, LATE TRANSITION, RAD, NARENDRA, SSS].POSSIBLE ANTERIOR MYOCARDIAL INFARCTION , OF INDETERMINATE AGE [30 ms Q WAVE IN V3/V4, OR R < 0.2 mV IN V4] INFERIOR MYOCARDIAL INFARCTION , PROBABLY OLD [40+ ms Q WAVE AND/OR ST/T ABNORMALITY IN II/aVF] Compared to ECG 12/03/2024 20:11:12 First degree AV block now present. Intraventricular conduction delay now present Atrial abnormality now present. Right ventricular hypertrophy now present Myocardial infarct finding now present Ventricular-paced complex(es) or rhythm no longer present Electronically Signed On 12-29-2024 20:19:43 CDT by Orlando Juarez M.D. [email or web address]
[2024-12-28 22:57] LABS: Respiratory Syncytial Virus Ce NEGATIVE (Negative); SARS-CoV-2 PCR NEGATIVE (Negative)
[2024-12-28 23:35] VITALS: BP 124/66; PULSE 87; RESP 16; O2SAT 94
--- NOTE | 2024-12-28 23:38 | W.ED.SOB ---
HPI - SOB/Dyspnea General: Chief Complaint: Shortness of Breath/Dyspnea Stated Complaint: Coughing up [place] feels dry in chest Time Seen by Provider: 12/28/24 23:35 Source: patient and family Mode of arrival: wheelchair Limitations: no limitations History of Present Illness: HPI Narrative: 79yo male with end-stage renal disease on dialysis and history of CLL presents with family for evaluation of increasing cough for the past 3 to 4 days. Reports the cough is now productive. States he was hospitalized at [facility] with a discharge date of 12/11/2024. He has not been sleeping well since he was discharged. Reports that he does not have much of an appetite either. Family reports patient did get a good night sleep last night. States significant other did have a cold a few days ago and he seemed to have picked it up. Last dialysis was today. Associated symptoms: Deny abdominal pain, chest pain, fever(s) or vomiting Related Data Home Medications ?Medication ?Instructions ?Recorded ?Confirmed docusate sodium 100 mg capsule 100 mg PO BID PRN Constipation 12/02/19 07/07/24 (Colace) cholecalciferol (vitamin D3) 25 50 mcg PO DAILY 12/14/20 07/07/24 mcg (1,000 unit) capsule atorvastatin 10 mg tablet 10 mg PO DAILY@18 03/02/21 07/07/24 diclofenac sodium 1 % topical gel 4 g topical QID PRN Pain 05/02/21 07/07/24 insulin regular human 100 unit/mL See Rx Instructions .Route 05/02/21 07/07/24 injection solution (Novolin R .COMPLEX see pharmacy comments Regular U-100 Insulin) loratadine 10 mg tablet (Claritin) 10 mg PO DAILY 05/02/21 07/07/24 tamsulosin 0.4 mg capsule 0.4 mg PO DAILY 10/18/21 07/07/24 fluticasone propionate 50 2 spray intranasal DAILY 07/16/22 07/07/24 mcg/actuation nasal spray,suspension (Flonase Allergy Relief) finasteride 5 mg tablet 5 mg PO DAILY 11/20/22 07/07/24 insulin glargine 100 unit/mL (3 35 unit SUBCUT QAM 11/20/22 07/07/24 mL) subcutaneous pen nifedipine 60 mg tablet,extended 60 mg PO DAILY 11/20/22 07/07/24 release omega 5-fnn-kcv-fish oil 1,000 mg 1 cap PO BID 11/20/22 07/07/24 (120 mg-180 mg) capsule (Fish Oil) carvedilol 3.125 mg tablet 3.125 mg PO Q12H 05/12/24 07/07/24 sevelamer carbonate 800 mg tablet 800 mg PO TID 05/12/24 07/07/24 Previous Rx's ?Medication ?Instructions ?Recorded isosorbide mononitrate 120 mg 120 mg PO DAILY #90 tabs 09/25/23 tablet,extended release 24 hr furosemide 40 mg tablet See Rx Instructions .Route 02/10/24 .COMPLEX #30 tabs Allergies Allergy/AdvReac Type Severity Reaction Status Date / Time allopurinol Allergy ALGY-Rash Verified 07/07/24 10:04 Iodinated Contrast Media Allergy ALGY-Hives Verified 07/07/24 10:04 levofloxacin (From Levaquin) Allergy ADR-Confusi Verified 07/07/24 10:04 on metformin Allergy ADR-Fatigue Verified 07/07/24 10:04 d Review of Systems Const: Denies: fever(s), chills or body aches ENMT: Reports: throat pain (Dry) Card: Denies: chest pain Resp: Reports: productive cough; Denies: dyspnea GI: Denies: abdominal pain or vomiting PFSH ED PFSH: Medical History (Updated 12/29/24 @ 01:07 by ALL Calvillo) Hyperuricemia History of COVID-19 (~12/2020) Anemia, unspecified Complex renal cyst BPH loc w urin obs/LUTS Diabetes HTN (hypertension) ASHD (arteriosclerotic heart disease) Dyslipidemia CKD (chronic kidney disease) CLL (chronic lymphocytic leukemia) Carotid stenosis, bilateral Surgical History H/O removal of testicle S/P appendectomy S/P CABG (coronary artery bypass graft) S/P PTCA (percutaneous transluminal coronary angioplasty) Status cardiac pacemaker Family History Mother , in her 70's Diabetes CAD (coronary artery disease) Father , at age 69 CAD (coronary artery disease) Hypertension Other Cancer Chronic kidney disease (CKD) Stroke Suicide Denies family history of Clotting disorder Dementia Hyperlipidemia Psychiatric illness Anesthesia complication Bleeding disorder Lung disease Social History Smoking and tobacco/nicotine status: former use of tobacco/nicotine Quit status (tobacco/nicotine): has quit using Year quit tobacco: 1989 Alcohol intake: never Substance/Drug Use: never Household members: spouse Marital status: Current occupational status: retired Physical Exam Const: COMMON NORMALS: no acute distress, patient oriented x3 and alert GENERAL APPEARANCE: cooperative ORIENTATION/CONSCIOUSNESS: Yes awake OTHER: Patient is sitting upright on the stretcher in no acute distress. He is able to give history with assistance from family. He is interactive with exam appropriately. Patient is chronically ill-appearing. Family is at bedside HENMT: COMMON NORMALS: normocephalic and atraumatic HEAD & SCALP: normocephalic and atraumatic Chest: CHEST: Yes Symmetrical chest wall rise Resp: COMMON NORMALS: normal respiratory effort EFFORT & INSPECTION: Yes able to speak in complete sentences, No labored, No Actively coughing and No retractions AUSCULTATION: crackles Laterality: bilateral (lower) and posterior Cardio: COMMON NORMALS: regular rate and regular rhythm RATE: regular rate RHYTHM: regular rhythm Neuro: COMMON NORMALS: patient oriented x3 SENSORIUM/ORIENTATION: Yes alert Psych: COMMON NORMALS: cooperative Course Vital Signs: Vital signs: Vital Signs Temperature 98.0 F 12/28/24 21:59 Pulse Rate 87 12/28/24 23:35 Respiratory Rate 16 12/28/24 23:35 Blood Pressure 124/66 12/28/24 23:35 Pulse Oximetry 94 12/28/24 23:35 Oxygen Delivery Me thod Room Air 12/28/24 23:35 MDM - SOB/Dyspnea Medical Decision Making 79yo male with end-stage renal disease on dialysis and history of CLL presents with family for evaluation of increasing cough for the past 3 to 4 days. Patient was discharged from [facility] on 12/11/2024 after an 8-day stay for pneumonia. He was treated with Rocephin at that time. Significant other was recently ill with a cold. Patient is chronically ill-appearing, but nontoxic. Vital signs are stable. Labs, EKG, and chest x-ray ordered in triage. Leukocytosis with a white blood cell count of 20.36, decreased from previous at 51.55 on 12/18/2024. Hemoglobin is 9.4, increased from 8.9 on 12/18. INR is 1.15. No electrolyte abnormalities noted. Creatinine is 3.1, chronic for patient due to ESRD. No hepatic abnormalities noted. Lactic is in the normal range of 1.2. proBNP is currently pending. Chest x-ray does show small bilateral pleural effusions with bibasilar atelectasis. Discussed all findings with patient and family. Advised that we are waiting on his proBNP. Patient requested to go home prior to results. Family does state that the BNP is always high. Family also reports that they are attempting to get his CLL under control so he can have his hemodialysis catheter removed so he can have his pacemaker replaced as it is at the 10-year scot. He will be following up with a new oncologist in [place] soon. For the cough, encouraged patient to try to take at least 2 deep breaths every hour while awake. Advised he would likely have a cough for several weeks given his recent diagnosis of pneumonia with sepsis. Encourage patient to continue to monitor his symptoms closely and keep in close contact with his medical care team. Return precautions provided. Patient and family state understanding and have no further questions or concerns at this time. Medical Records I reviewed the patient's medical records. Lab Data I reviewed the patient's lab results. 12/29/24 00:04 12/29/24 00:04 Labs/Radiology: Radiology Impressions Chest X-Ray 12/28/24 22:04 IMPRESSION: 1. Bibasilar atelectasis. 2. Small bilateral pleural effusion. Laboratory Results WBC 20.36 10^3/uL (3.29-11.43) H 12/29/24 00:04 RBC 2.85 10^6/uL (3.85-5.65) L 12/29/24 00:04 Hgb 9.40 g/dL (11.27-16.99) L 12/29/24 00:04 Hct 30.5 % (37-53) L 12/29/24 00:04 MCV 107.0 fl (82-101) H 12/29/24 00:04 MCH 33.0 pg (27-33) 12/29/24 00:04 MCHC 30.8 g/dL (30-55) 07/09/25 00:04 RDW 18.4 % (12.1-15.1) H 12/29/24 00:04 Plt Count 83 10^3/cmm (157-399) L 12/29/24 00:04 MPV 11.0 fL (7.4-10.4) H 12/29/24 00:04 Neut % (Auto) 8.1 % 12/29/24 00:04 Lymph % (Auto) 86.1 % 12/29/24 00:04 [place] % (Auto) 4.0 % 12/29/24 00:04 Eos % (Auto) 1.5 % 12/29/24 00:04 Baso % (Auto) 0.1 % 12/29/24 00:04 Neut # (Auto) 1.64 10^3/uL (1.8-7.7) L 12/29/24 00:04 Lymph # (Auto) 17.5 10^3/uL (0.8-4.8) H 12/29/24 00:04 [place] # (Auto) 0.8 10^3/uL (0.2-0.9) 12/29/24 00:04 Eos # (Auto) 0.3 10^3/uL (0.0-0.8) 12/29/24 00:04 Baso # (Auto) 0.0 10^3/uL (0.0-0.1) 12/29/24 00:04 Nucleated RBC % (auto) 0.1 % 12/29/24 00:04 Nucleated RBCs # 0.0 /100WBC 12/29/24 00:04 PT 15.50 SECONDS (12.1-14.9) H 12/29/24 00:04 INR 1.15 (0.8-1.2) 12/29/24 00:04 Sodium 137 mmol/L (136-145) 12/29/24 00:04 Potassium 4.9 mmol/L (3.5-5.1) 12/29/24 00:04 Chloride 98 mmol/L (98-107) 12/29/24 00:04 Carbon Dioxide 27 mmol/L (22-29) 12/29/24 00:04 Anion Gap 16.9 (5-19) 12/29/24 00:04 BUN 18 mg/dL (8-23) 12/29/24 00:04 Creatinine 3.1 mg/dL (0.7-1.2) H 12/29/24 00:04 GFR Calculation Not Reportable 12/29/24 00:04 Glucose 246 mg/dL (65-115) H 12/29/24 00:04 Calculated Osmolality 294 mOsm/kg (285-295) 12/29/24 00:04 Lactic Acid 1.2 mmol/L (0.5-2.2) 12/29/24 00:04 Calcium 8.9 mg/dL (8.5-10.5) 12/29/24 00:04 Total Bilirubin 1.1 mg/dL (0.15-1.2) 12/29/24 00:04 AST 12 U/L (0-40) 12/29/24 00:04 ALT 8 U/L (0-41) 12/29/24 00:04 Alkaline Phosphatase 112 U/L (40-130) 12/29/24 00:04 Total Protein 6.2 g/dL (6.6-8.7) L 12/29/24 00:04 Albumin 4.1 g/dL (3.5-5.2) 12/29/24 00:04 Globulin 2.1 g/dL (1.3-4.6) 12/29/24 00:04 Influenza A (PCR) Negative (Negative) 12/28/24 22:12 Influenza Type B (PCR) Negative (Negative) 12/28/24 22:12 RSV (PCR) Negative (Negative) 12/28/24 22:12 SARS-CoV-2 (PCR) Negative (Negative) 12/28/24 22:12 All radiology interpretation(s) finalized by discharge Discharge Plan Discharge Patient Disposition: Home Clinical Impression: Productive cough, Fatigue Condition: Stable Prescriptions: No Action cholecalciferol (vitamin D3) 25 mcg (1,000 unit) capsule 50 mcg PO DAILY atorvastatin 10 mg tablet 10 mg PO DAILY@18 carvedilol 3.125 mg tablet 3.125 mg PO Q12H Rx Instructions: must administer with a meal/food sevelamer carbonate 800 mg tablet 800 mg PO TID Rx Instructions: must administer with a meal/food finasteride 5 mg tablet 5 mg PO DAILY omega 0-bvv-zhg-fish oil [Fish Oil] 1,000 mg (120 mg-180 mg) capsule 1 cap PO BID insulin glargine 100 unit/mL (3 mL) insulin pen 35 unit SUBCUT QAM nifedipine 60 mg tablet extended release 60 mg PO DAILY isosorbide mononitrate 120 mg tablet extended release 24 hr 120 mg PO DAILY Qty: 90 3RF furosemide 40 mg tablet See Rx Instructions .ROUTE .COMPLEX Qty: 30 0RF Dose Instruction: TAKE 1 TABLET BY MOUTH ONCE DAILY NEEDED FOR EDEMA Rx Instructions: TAKE 1 TABLET BY MOUTH ONCE DAILY NEEDED FOR EDEMA; docusate sodium [Colace] 100 mg Capsule 100 mg PO BID PRN (Reason: Constipation) fluticasone propionate [Flonase Allergy Relief] 50 mcg/actuation spray,suspension 2 spray INTRANASAL DAILY Novolin R Regular U100 Insulin 100 unit/mL Solution See Rx Instructions .ROUTE .COMPLEX Rx Instructions: sliding scale 3-18 units bid Claritin 10 mg Tablet 10 mg PO DAILY diclofenac sodium 1 % Gel 4 g TOPICAL QID PRN (Reason: Pain) tamsulosin 0.4 mg capsule 0.4 mg PO DAILY Discharge Orders: Discharge ED (Routine); Ordered 12/29/24 Ordered By: José Miguel Gilmore Referrals: Paula Sandoval MD [Primary Care Provider, Family Practice] Discharge Diet: Usual diet Discharge Activity: Increase activity as tolerated Patient Instructions: Pneumonia (ED), Pain Management, Patient Portal & [place] Instructions Activity Restrictions/Additional Instructions: Your labs have improved from your last visit. Your BNP is currently pending. The chest x-ray does not show any sign of pneumonia, but there was a small amount of fluid. Use of a coolmist humidifier may help with the cough. We actually want you to cough up the mucus in your lungs. Try to remember to take 2 big breaths an hour to increase airflow to the lower aspects of your lungs Follow-up with your medical team, call in the next couple days with an update of symptoms and to discuss a recheck Return to the emergency department if any rapid worsening symptoms, onset of fever associated with worsening, difficulty breathing, sustained shortness of breath, chest pain, and as needed Print Language: Polish Coding Level of Care Code ED Jira Administrator for Jordin Moreno
[2024-12-29 00:13] LABS: Hematocrit 30.5 % (37-53); Hemoglobin 9.40 g/dL (11.27-16.99); Mean Corpuscular HGB Conc 30.8 g/dL (30-55); Mean Corpuscular Hemoglobin 33.0 pg (27-33); Mean Corpuscular Volume 107.0 fl (82-101); Nucleated Red Blood Cells % 0.1 %; Platelet Count 83 10^3/cmm (157-399); Red Blood Count 2.85 10^6/uL (3.85-5.65); White Blood Count 20.36 10^3/uL (3.29-11.43)
[2024-12-29 00:20] LABS: INR 1.15 (0.8-1.2); Prothrombin Time 15.50 SECONDS (12.1-14.9)
[2024-12-29 00:29] LABS: Lactic Sepsis W/Reflex 1.2 mmol/L (0.5-2.2)
[2024-12-29 00:36] LABS: Alanine Aminotransferase 8 U/L (0-41); Albumin Level 4.1 g/dL (3.5-5.2); Alkaline Phosphatase 112 U/L (40-130); Anion Gap 16.9 (5-19); Aspartate Amino Transferase 12 U/L (0-40); Blood Urea Nitrogen 18 mg/dL (8-23); Calcium 8.9 mg/dL (8.5-10.5); Carbon Dioxide 27 mmol/L (22-29); Chloride 98 mmol/L (98-107); Creatinine Clr Calc Pharmacy 23.6557; Globulin 2.1 g/dL (1.3-4.6); Glucose 246 mg/dL (65-115); Osmolality Calculated 294 mOsm/kg (285-295); Potassium 4.9 mmol/L (3.5-5.1); Slide Review Slide Review Perform; Sodium 137 mmol/L (136-145); Total Protein 6.2 g/dL (6.6-8.7)
[2024-12-29 00:59] LABS: NT Pro B Type Natriuretic Pept 30970 pg/mL (0-450)
[2024-12-29 01:00] VITALS: BP 125/64; PULSE 91; RESP 16; O2SAT 95
[2024-12-29 01:47] VITALS: BP 131/78; PULSE 95; RESP 16; O2SAT 92
== END 2024-12-29 01:49 | disposition home or self-care (01) ==
PROVIDERS: Emergency Medicine; Emergency Provider Nurse Practitioner; PCP Family Medicine
DX: R05.9 Cough, unspecified (principal); R50.9 Fever, unspecified; Z79.4 Long term (current) use of insulin; Z11.52 Encounter for screening for COVID-19; Z87.891 Personal history of nicotine dependence; E78.5 Hyperlipidemia, unspecified; E11.22 Type 2 diabetes mellitus with diabetic chronic kidney disease; I12.9 Hypertensive chronic kidney disease with stage 1 through stage 4 chronic kidney disease, or unspecified chronic kidney disease; N18.9 Chronic kidney disease, unspecified
CPT/HCPCS: 71045; 80053; 83605; 83880; 85025; 85610; 87637; 93005; 99285

== ENCOUNTER 2024-12-30 21:35 | Emergency (ER) | payer OTHER, MEDICARE, SELFPAY ==
--- OUTSIDE RECORDS SUMMARY | 2024-07-26 05:30 | XMS_ITS ---
Author Organization [facility] Address [address] [place] [address] Care Team Providers Care Dialysis Clinical Manager Name Role Phone Corrina AGUERO Primary Care Provider Tito Wan Unavailable [phone] Michael Antonio MD Unavailable Slaly Haney [phone] REASON FOR VISIT 4 month labs @ [facility] mail pt a copy Encounters Encounter Location Date Provider Diagnosis [facility] Nephrology [address] [facility] [address] [place] [address] 07/26/2024 Sally Haney Plan Of Treatment No Information Progress Notes * Qiana RENAEe LDOB:1945 (79 yo M)Acc No.[id number]:07/26/2024 Progress Notes Patient: Valente ALATORRE Provider: Nupur Haney CNP :1945 A ge:79 Y S ex:Male Date:07/26/2024 [id number] Pcp:Corrina AGUERO Subjective: * Chief Complaints: * 1 . 4 month labs @ [facility] mail pt a copy. * Medical History: Objective: * Vitals: Assessment: Plan: * Treatment: Forms: * Billing Information: * Visit Code: * Procedure Codes: Care Plan Details* * Electronic signature of Demetrice Haney CNP on 12/30/2024 at 07:26 PM CDT Sign off status: Pending * Provider: Nupur Haney CNP Date: 0 07/26/2024 Generated for Lida harris/Elliot/Jolene on: 0 12/30/2024 07:26 PM SIRIAT
--- OUTSIDE RECORDS SUMMARY | 2024-12-22 05:30 | XMS_ITS | Encounter Summary ---
Author Name [facility] [place] [facility] [place] [facility] [place] [facility] [place] Address [address] [place] [address] Care Team Providers Care Maintenance And Custodian Supervisor Name Role Phone PAULA SANDOVAL Primary [...] PART A Feb 21, 2009 PART A [id number] ANGELLA MARTIN PATIENT MEDICARE (WNR) MEDICARE (M) PART B Feb 21, 2009 PART B [id number] [phone] ANGELLA MARTIN PATIENT MEDICARE (WNR) MEDICARE (M) PART A Feb 21, 2009 PART A [id number] [phone] ANGELLA MARTIN PATIENT MEDICARE (WNR) MEDICARE (M) PART B Feb 21, 2009 PART B [id number] ANGELLA MARTIN PATIENT MEDICARE (WNR) MEDICARE (M) PART A Feb 21, 2009 PART A [id number] ANGELLA MARTIN PATIENT MEDICARE (WNR) MEDICARE (M) PART B Feb 21, 2009 PART B [id number] ANGELLA MARTIN PATIENT [employer] [place] [employer] PLAN F MEDIC ARE SUPPL EMENT 2013 PLAN F [id number] [phone] ANGELLA MARTIN PATIENT [employer] [place] [employer] [place] MED[place] SUPPLEMEN [place] MEDIC ARE SUPPL EMENT 2013 PLAN F [id number] [phone] ANGELLA MARTIN PATIENT Selected Encounter This section includes the information on record at [place] for the Encounter. Date/Time Encounter Type Encounter [...] 01:16 PM SECONDARY Athscl heart disease of algaaciq coronary artery w/o ang pctrs CHRISTIALF LAROSEMY [...] care activities for the patient from all [place] treatmentfacilities. This section includes future appointments and future orders which are active, pending or scheduled. Future Appointments This section includes appointments that were scheduled to occur 6 months from the date of the Encounter, up to a maximum of 20 appointments. The data comes from all [place] treatment facilities. Appointment Date/Time Appointment Type Appointme nt Facility Name Jun 13, 2025 08:40 AM AMBULATORY - MEDICINE [facility] Jun 20, 2025 10:00 AM AMBULATORY - MEDICINE [facility] Active, Pending, and Scheduled Orders This section includes a listing of several types of active, pending, and scheduled orders, including clinic medications orders, diagnostic test orders, procedure orders and consult orders; where the start date of the order is 45 days before the date of the Encounter or 45 days after the date of theEncounter. The data comes from all [place] treatment [facility]. Test Date/Time Test Type Test Details Facility Name Dec 20, 2024 10:07 AM Consult Order [facility]-HEMATOLOGY/ONC [id number] [facility] Animal Laboratory Technician's Choice FOR[facility] NAMED [facility] Dec 22, 2024 12:54 PM Consult Order [facility]-GI GENERAL [id number] [facility] Animal Laboratory Technician's [facility] Dec 22, 2024 05:03 PM Consult Order [facility]-SLEEP STUDY-[id number] [facility] Animal Laboratory Technician's [facility] Lab Results: +/- 30 days of the encounter This section includes the Chemistry and Hematology Lab Results on record with [place] for the patient. Radiology Reports and Pathology Reports are provided separately, in subsequent sections. Lab Results This section contains the Chemistry/Hematology Results that were resulted 30 days before or 30 daysafter the date of the Encounter. Date/Time Source Result Type Result - Unit Interpretation Reference Range Specimen Type Comment Dec 01, 2024 09:24 AM [facility] HGA1C BLOOD Specimen Type: BLOOD No comment entered. Ordering Provider: PAULA SANDOVAL Report Released Date/Time: Dec 09, 2023 10:52 AM Reporting Lab: [facility] [address] [place] [address] Performing Lab: [facility] [address] [place] [address] HGA1C 7.4 H 4.0-6.0 Dec 01, 2024 09:24 AM [facility] TSH (MA-PB) SERUM Specimen Typ e: SERUM No comment entered. Ordering Provider: PAULA SANDOVAL Report Released Date/Time: Dec 09, 2023 10:52 AM Reporting Lab: [place] [facility] [address] [place] [address] Performing Lab: [place] [facility] [address] [place] [address] TSH 4.243 u[IU]/mL 0.47-5 Dec 01, 2024 09:24 AM [facility] CB URINE ALBUMIN PROFILE-ih (PB) URINE Specimen Type: URINE No comment entered. Ordering Provider: PAULA SANDOVAL Report Released Date/Time: Dec 09, 2023 10:52 AM Reporting Lab: [place] [facility] [address] [place] [address] Performing Lab: [place] [facility] [address] [place] [address] URINE ALBUMIN (PB-STL) 417.30 mg/L uACR (PB-MA) 346.62 mg/g H 0-30 CREATININE URINE/OTHERS 120.39 mg/dL Dec 01, 2024 09:24 AM [facility] CHOLESTEROL PANEL (PB) PLASMA Specimen Type: P LASMA No comment entered. Ordering Provider: PAULA SANDOVAL Report Released Date/Time: Dec 09, 2023 10:52 AM Reporting Lab: [place] [facility] [address] [place] [address] Performing Lab: [place] [facility] [address] [place] [address] CHOLESTEROL 84 mg/dL 0-200 TRIGLYCERIDE 103 mg/dL 0-150 CALCULATED LDL 27.9 mg/dL HDL(New) 35.5 mg/dL L >40 HDL % OF TOTAL CHOLESTEROL (PB) 42.3 >25 Dec 01, 2024 09:24 AM [facility] COMPREHENSIVE METABOLIC PANEL PLASMA Specimen Type: PLASMA No comment entered. Ordering Provider: PAULA SANDOVAL Report Released Date/Time: Dec 09, 2023 10:52 AM Reporting Lab: [place] [facility] [address] [place] [address] Performing Lab: [place] [facility] [address] [place] [address] CREATININE 3.11 mg/dL H 0.7-1.3 UREA NITROGEN [...] (CKD-EPI 2020) Dec 01, 2024 09:24 AM [facility] CBC BLOOD Specimen Type: BLOOD No comment entered. Ordering Provider: PAULA SANDOVAL Report Released Date/Time: Dec 09, 2023 10:52 AM Reporting Lab: [facility] [address] [facility] [address] Performing Lab: [facility] [address] [facility] [address] WBC 59.9 10*3/uL H 3.6-11.2 RBC 3.15 [...] /min 94 % 0 230.5 lb 32 [facility] Social History: Smoking Status (Most current) and Tobacco Use (All prior to encounter date) This section includes the most current, and the historical, smoking and tobacco- related health factors from the [place] facility where the Encounter took place. Current Smoking Status This section includes the most current smoking, or tobacco-related health factor, from the [place] facility where the Encounter took place. Date/Time Current Smoking Status Comment Facil ity Aug 25, 2024 11:00 AM VA-TOBACCO USE FORMER CIGARETTES [facility] Tobacco Use History This section includes a history of the smoking, or tobacco-related health factors, that were collected on or before the date of the Encounter. The data comes from the [place] facility where the Encounter took place. Date/Time Smoking Status/Tobacco Use Comment F acility Aug 25, 2024 11:00 AM VA-TOBACCO USE FORMER CIGARETTES [facility] Jun 13, 2023 11:00 AM VA-TOBACCO FORMER USER [facility] Jun 13, 2023 11:00 AM VA-TOBACCO QUIT 15 YRS OR MORE [facility] May 22, 2022 10:30 AM [facility] May 22, 2022 10[facility]30 AM VA-TOBACCO QUIT 15 YRS OR MORE [facility] May 24, 2021 09:00 AM VA-TOBACCO NEVER USED [facility] Feb 07, 2020 10:30 AM VA-TOBACCO FORMER USER [facility] Feb 07, 2020 10:30 AM VA-TOBACCO QUIT 15 YRS OR MORE [facility] Aug 04, 2018 03:05 PM VA-TOBACCO FORMER USER [facility] Aug 04, 2018 03:05 PM VA-TOBACCO QUIT 15 YRS OR MORE [facility] Jun 30, 2017 02:33 PM QUIT TOBACCO >7 YEARS AGO [facility] Sep 17, 2012 02:58 PM QUIT TOBACCO >7 YEARS AGO [facility] Nov 30, 2004 09:55 AM CURRENT NON-TOBACCO USER-[facility] [place] [facility] Jul 03, 2004 01:41 PM CURRENT NON-TOBACCO USER[facility] Sep 01, 2003 02:24 PM CURRENT NON-TOBACCO USER[facility] Sep 16, 2002 10:15 AM CURRENT NON-TOBACCO USER-[facility] Encounter Notes: All associated [...] 25, 2024 He was recently hospitalized at [facility] on December 03, 2024 [address] to [facility] in [place] for an 8-day stent for sepsis related to his dialysis shunt. He had that shunt replaced at the same time he had an echocardiogram which showed EF 20 to 25% and needs an new pacemaker battery but the plan is to actually replace the pacemaker with a pacemaker/defibrillator. He also had a EGD while he was in the hospital at [facility] within none bleeding gastric ulcer that was [...] pyh ALCOHOL: rarely DRUGS: no HX: BRANCH: [place] 1963-. 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 CHANGE SENSOR/SITE EVERY 14 DAYS. CONTACT [employer] CUSTOMER SERVICE AT ([id number]) FOR REPLACEMENT OF DAMAGED/MALFUNCTIONING SENSORS Indication: FOR [...] Recurrent TIA's/CVA/Carotid artery narrowing- US results at [facility] showed bilateral carotid 50-60% plaquing; he is on 81mg aspirin q day and Plavix; no recent issues Type 2 diabetes mellitus- much improved; he has the Level 3 [employer] CGM which is helpful. Will increase Lantus [...] Claritin BPH- controlled on Flomax and finasteride [place]/tinnitus- stable Pain of left wrist/OA knees- stable [...] appointments. Medications Reconciled. See AVS given to [place]. Time spent 30 minutes. /nichelle/ Paula Sandoval MD [facility] Signed: 12/22/2024 17:04 12/22/2024 ADDENDUM STATUS: COMPLETED EGD stomach biopsy report obtained from [facility] which shows gastric and transitional mucosa involved by chronic lymphocytic leukemia/small lymphocytic lymphoma. Results sent to his oncologist that he has an appointment with tomorrow here in [place]. /nichelle/ Paula Sandoval MD [facility] Signed: 12/22/2024 17:06 PAULA SANDOVAL [facility] Dec 22, 2024 10:36 AM PRIMARY [...] test with the Spo2 remained above 95%. reported that he was feeling weak and had to stop. Let the know that he did not qualify for Oxygen at this time. The provider did talk to him about getting tested for need at night. Are you receiving care any where other than the [facility]? No Per [facility] Directive 1605.06, wristband documentation: Patient wristband was removed and destroyed by (staff name) Jenna Cardenas RN and placed in the designated [employer] bin. HEALTH AND SURGICAL HISTORY: Does patient report using home oxygen? No CURRENT ACTIVE MEDICATIONS FOR REVIEW: If the list for review does not include a component, then it was not applicable to this patient. Allergies/ADRs (Tool #5) FACILITY ALLERGY/ADR -------- No Remote Allergy/ADR Data available for this patient [facility] ALLOPURINOL [facility] CONTRAST MEDIA [facility] FLOMAX [facility] METFORMIN Med. Reconciliation (Tool #1) INCLUDED IN THIS LIST: Alphabetical list of active outpatient prescriptions dispensed from this [place] (local) and dispensed from another [place] or [facility] facility (remote) as well as inpatient orders (local pending and active), local clinic medications, locally documented non-VA medications, and local prescriptions that have or been discontinued in the past 90 days. Non-VA Meds Last Documented On: Sep 17, 2024 NOTE The display of VA prescriptions dispensed from another [place] or [facility] facility (remote) is limited to active outpatient prescription entries matched to National Drug File at the originating site and may not include some items such as investigational drugs, compounds, etc. NOT INCLUDED IN THIS LIST: Medications self-entered by the patient into personal health records (i.e. [employer]) are NOT included in this list. Non-VA medications documented outside this [place], remote inpatient orders (regardless of status) and [...] CHOLESTEROL TAKE ORALLY WITH EVENING MEAL Rx# [id number] Last Released: 07/05/24 Qty/Days Supply: Rx Expiration Date: 04/27/25 Refills Remainin Indication: FOR HIGH CHOLESTEROL OUTPT CARVEDILOL 6.25MG TAB (Status = Active) TAKE ONE-HALF TABLET BY MOUTH TWICE A DAY FOR HEART FAILURE TAKE WITH FOOD. Rx# [id number] Last Released: 07/21/24 Qty/Days Supply: Rx Expiration Date: 04/27/25 Refills Remainin Indication: FOR HEART FAILURE OUTPT CHOLECALCIF 50MCG (D3-2,000UNIT) TAB (Status = Active) TAKE TWO TABLETS BY MOUTH ONCE A DAY FOR VITAMIN D SUPPLEMENTATION Rx# [id number] Last Released: 11/05/24 Qty/Days Supply: 180 Rx [...] DOSE WITH RULER ATTACHED INSIDE BOX) Rx# [id number] Last Released: 09/06/24 Qty/Days Supply: 300/ Rx Expiration Date: 04/27/25 Refills Remainin OUTPT FINASTERIDE 5MG TAB (Status = Active) TAKE ONE TABLET BY MOUTH ONCE A DAY SWALLOW WHOLE, DO NOT CRUSH, SPLIT, OR CHEW. Rx# [id number] Last Released: 11/24/24 Qty/Days Supply: 90 Rx Expiration Date: 09/18/25 Refills Remainin Non-VA FISH OIL 1000MG (500MG DHA/EPA) CAP TAKE 2 CAPSULES BY MOUTH TWICE A DAY WITH MEALS Jun 04, 2024 [place] RX: Non-[place] medication recommended by [place] provider [place] RX: Patient wants to buy from Non-[place] pharmacy Indication: FOR HIGH TRIGLYCERIDES OUTPT FLUTICASONE PROP 50MCG 120D NASAL INHL (Status = Active) INSTILL 1 SPRAY IN NOSTRIL(S) ONCE A DAY FOR ALLERGIES (MUST BE USED DIRECTED FOR MINIMUM OF 21 DAYS TO PROVIDE ADEQUATE BENEFITS) Rx# [id number] Last Released: 09/20/24 Qty/Days Supply: Rx Expiration Date: 09/18/25 Refills Remainin OUTPT FOLIC ACID 1MG TAB (Status = Active) TAKE ONE TABLET BY MOUTH ONCE A DAY FOR FOLIC ACID SUPPLEMENTATION Rx# [id number] Last Released: 11/18/24 Qty/Days Supply: 100/ Rx Expiration Date: 06/08/25 Refills Remainin Indication: FOR FOLIC ACID SUPPLEMENTATION OUTPT INSULIN REG HUMAN 100 UNIT/ML NOVOLIN R (Status = Active) INJECT 15 UNITS UNDER THE SKIN THREE TIMES A DAY BEFORE MEALS FOR DIABETES ADMINISTER 30 MINUTES BEFORE FOOD DIRECTED. DISCARD 30 DAYS AFTER OPENING. Rx# [id number] Last Released: 09/22/24 Qty/Days Supply: Rx Expiration Date: 09/18/25 Refills Remainin Indication: FOR DIABETES OUTPT INSULIN,GLARGINE,HUMAN 100 UNIT/ML INJ (Status = Active) INJECT 50 UNITS UNDER THE SKIN EVERY MORNING FOR DIABETES (AT SAME TIME EACH DAY) - (DISCARD ANY UNUSED PORTION 28 DAYS AFTER OPENING) ### Rx# [id number] Last Released: 09/30/24 Qty/Days Supply: Rx Expiration Date: 09/18/25 Refills Remainin Indication: FOR DIABETES OUTPT ISOSORBIDE MONONITRATE 30MG SA TAB (Status = Active) TAKE ONE TABLET BY MOUTH ONCE A DAY FOR CHEST PAIN TAKE ON EMPTY STOMACH. SWALLOW WHOLE. DO NOT CRUSH OR CHEW. Rx# [id number] Last Released: 07/07/24 Qty/Days Supply: Rx Expiration Date: 04/27/25 Refills Remainin Indication: FOR CHEST PAIN OUTPT LORATADINE 10MG TAB (Status = ) TAKE ONE TABLET BY MOUTH ONCE A DAY ON EMPTY STOMACH FOR ALLERGIES Rx# [id number] Last Released: 09/10/24 Qty/Days Supply: Rx Expiration Date: 12/08/24 Refills Remainin OUTPT NITROGLYCERIN 0.4MG SL TAB (Status = Active) DISSOLVE ONE TABLET UNDER THE TONGUE ONE-TIME FOR CHEST PAIN NEEDED; IF NO IMPROVEMENT AFTER FIRST DOSE CALL 9-1-1. MAY TAKE 2 ADDITIONAL DOSES, 5 MINUTES APART Rx# [id number] Last Released: 11/23/24 Qty/Days Supply: Rx Expiration Date: 04/20/25 Refills Remainin Indication: FOR CHEST PAIN OUTPT OLANZAPINE 10MG TAB (Status = Active) TAKE ONE-HALF TABLET BY MOUTH AT BEDTIME NEEDED FOR ANXIETY Rx# [id number] Last Released: 04/30/24 Qty/Days Supply: Rx Expiration Date: 04/27/25 Refills Remainin Indication: FOR ANXIETY OUTPT SEVELAMER CARBONATE 800MG TAB (Status = Active) TAKE ONE TABLET BY MOUTH THREE TIMES A DAY WITH MEAL(S) TAKE WITH FOOD. Rx# [id number] Last Released: 11/23/24 Qty/Days Supply: Rx Expiration Date: 04/24/25 Refills Remainin OUTPT TAMSULOSIN HCL 0.4MG CAP (Status = Active) TAKE TWO CAPSULES BY MOUTH EVERY EVENING APPROXIMATELY 30 MINUTES AFTER THE SAME MEAL EACH DAY (FOR PROSTATE) Rx# [id number] Last Released: 04/17/24 Qty/Days Supply: Rx Expiration Date: 03/20/25 Refills Remainin OUTPT TORSEMIDE 100MG TAB (Status = Active) TAKE ONE TABLET BY MOUTH DIRECTED ON NON-DIALYSIS DAYS (FRIDAY, FRIDAY, FRIDAY, AND FRIDAY) Rx# [id number] Last Released: 09/17/24 Qty/Days Supply: Rx Expiration Date: 09/14/25 Refills Remainin SUPPLIES OUTPT GLUCOSE SENSOR FREESTYLE KIERAN 2 (Status = Active) USE SENSOR EVERY 14 DAYS FOR BLOOD SUGAR MONITORING FOR CONTINUOUS GLUCOSE MONITORING. CHANGE SENSOR/SITE EVERY 14 DAYS. CONTACT [employer] CUSTOMER SERVICE AT ([id number]) FOR REPLACEMENT OF DAMAGED/MALFUNCTIONING SENSORS Rx# [id number] Last Released: 11/25/24 Qty/Days Supply: 08/20 Rx Expiration Date: 12/24/24 Refills Remainin Indication: FOR BLOOD SUGAR MONITORING OUTPT INSULIN SYRINGE 0.5ML 31G 8MM (Status = Active) USE SYRINGE UNDER THE SKIN FOUR TIMES A DAY FOR DIABETES TO USE WITH INSULIN Rx# [id number] Last Released: 05/28/24 Qty/Days Supply: 400/90 Rx Expiration Date: 05/28/25 Refills Remainin Indication: FOR DIABETES PHARMACY TERMS AND POSSIBLE PATIENT ACTIONS INPT = [place] inpatient order IV = [place] intravenous medication OUTPT = [place] outpatient prescription PHARMACY POSSIBLE PATIENT TERMS EXPLANATION ACTIONS -------- ----- ACTIVE A prescription that can be If you have refills, filled at the local [place] pharmacy. you may request a refill of this prescription from your VA pharmacy. CLINIC A medication you received during If you have questions a visit to a [place] clinic or about this medication emergency department. contact your VA healthcare team. DISCONTINUED A prescription your provider has Contact your VA stopped. It is no longer healthcare team if you available to be sent to you or need more of this picked up at the [place] pharmacy medication. window. A prescription which is [...] the VA. Or, it may be an wpdl-kpc-ibhzoid (OTC), herbal, dietary supplements or sample medication. [...] out. Medication list reviewed with Patient and toddler caregiver Patient/Caregiver reports taking medications as ordered. IS [...] let us serve you. At the [facility], we strive to provide you with [...] Not At All SPIRITUAL ASSESSMENT: Are there alevism practices or spiritual concerns you want the tester regulator, your physician, and other health care team members to immediately know about? No Patient advised to call the clinic for any concerns, questions, or symptoms. Patient and/or caregiver verbalized understanding of plan of care. Suicide Screen - V: C-SSRS Screening [place] Suicide Severity Rating Scale (C-SSRS) screener 1. [...]
--- OUTSIDE RECORDS SUMMARY | 2024-12-23 12:00 | XMS_ITS | Encounter Summary ---
Author Organization [facility] Address [address] [place] [address] Care Team Providers Care Skilled Nursing Professional Name Role Phone Paula Sandoval MD Primary Care Provider + [phone] Reason for Visit * Reason Comments Follow Up Encounter Details Date Type Department Care Team (Late st Contact Info) Description 12/23/2024 12:00 PM CDT Office Visit [facility] Cancer and Hematology [place] [address] [facility] [address] [place] [address] Umm Dotson, [address] [place] [address] CLL (chronic lymphocytic leukemia) (CMS/HCC) (Primary Dx) Social History Tobacco Use Types Packs/Day Years [...] Sign Reading Time Taken Comments Blood Pressure 122/60 12/23/2024 12:04 PM CDT Pulse 87 12/23/2024 12:04 PM CDT Temperature 36.1 C (96.9 F) 12/23/2024 12:04 PM CDT Respiratory Rate - - Oxygen Saturation - - Inhaled Oxygen Concentration - - Weight 105.9 kg (233 lb 6.4 oz) 025 12:04 PM CDT Height 180.3 cm (5' 11 ) 12/23/2024 12: 04 PM CDT Body Mass Index 32.55 12/23/2024 12:04 PM CDT documented in this encounter Progress Notes * Manuela Pichardo CMA - 12/23/2024 12:05 PM CDT TOBACCO COUNSELING He is not a tobacco/nicotine user. * Umm Dotson DO - 12/23/2024 12:00 PM CDT Images from the original note were not included. [facility] CANCER AND HEMATOLOGY CONSULTATION NOTE Visit Date: 12/23/2024 Valente Renae [id number] ONCOLOGIST: Dr. Umm Dotson PCP: Paula Sandoval MD REFERRING PROVIDER: Dr. Jazmin Lema, hospitalist DATE OF DIAGNOSIS: 12/10/2024- recurrence. 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 He was seenby oncology as an inpatient on 12/04/2024 He is a poor historian. Known to have CLL dx in 2009. (See oncology hx below) He was admitted for GI bleed in November 2024. Biopsy of the ulcer found in gastric area showed CLL. Wediscussed this today. His white count has been stable for a long time however with the ulcer being caused by CLL this is reason for treatment. He has failed multiple options. PMH includes: thrombocytopenia, dilated cardiomyopathy, ESRD on dialysis, Chronic combined systolicand diastolic CHF, recent acute blood loss anemia ONCOLOGY HISTORY: Diagnosed with anemia/thrombocytopenia January 2010 Bone marrow [...] intiate therapy only once WBC >/= 100-150 PATHOLOGY: [id number] Order: [id number] Collected 12/10/2024 11:00 Status: Final result Test Result Released: Yes (seen) 0 Result Notes Component Ref Range & Units (hover) FINAL DIAGNOSIS A. 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 GERD (gastroesophageal reflux disease) Headache HTN (hypertension) Hyperlipidemia Malignant neoplasm (CMS/HCC) leukemia Motion sickness Peripheral vascular disease Stroke (CMS/HCC) TIA Past Surgical History: Procedure Laterality Date HX APPENDECTOMY HX CORONARY ARTERY BYPASS GRAFT HX ESOPHAGOGASTRODUODENOSCOPY N/A 12/10/2024 ESOPHAGOGASTRODUODENOSCOPY performed by Clinton Ascencio DO at [facility] ENDOSCOPY HX PACEMAKER PLACEMENT OR CRTJ ALEN FSTL XCP DIR ALEN CASAS NONAUTOG GRF Right 11/29/2024 ARTERIOVENOUS GRAFT INSERTION performed by Klarissa Flowers MD at [facility] MAIN OR is allergic to febuxostat, allopurinol, iodinated contrast media, iodine, levofloxacin, metformin, and quetiapine. Current Outpatient Medications Medication folic acid (FOLVITE) 1 mg tablet pantoprazole (PROTONIX) 40 mg Tablet, Delayed Release (E.C.) epoetin janet (EPOGEN INJECTION) carvediloL (COREG) 3.125 mg tablet glucosamine-chondroitin (ARTHX DS) 500-400 mg Capsule carvediloL (COREG) 6.25 mg tablet isosorbide mononitrate (IMDUR) 120 mg Extended Release 24 hour tablet sevelamer carbonate (RENVELA) 800 mg Tablet atorvastatin (LIPITOR) 80 mg tablet furosemide (LASIX) 40 mg tablet diclofenac sodium (VOLTAREN) 1 % gel loratadine (CLARITIN) 10 mg tablet nitroglycerin (NITROSTAT) 0.4 mg Tablet, Sublingual docusate sodium (COLACE) 100 mg capsule fluticasone propionate (FLONASE) 50 mcg/spray [place], Suspension nasal inhaler acetaminophen (TYLENOL) 325 mg tablet finasteride (PROSCAR) 5 mg tablet cholecalciferol, Vitamin D3, (VITAMIN D3) 25 mcg (1,000 unit) Capsule insulin glargine (LANTUS) 100 unit/mL pen syringe tamsulosin (FLOMAX) 0.4 mg capsule pirtobrutinib (Jaypirca) 50 mg Tablet oxyCODONE-acetaminophen (PERCOCET) 5-325 mg tablet No current facility-administered medications for this visit. LABORATORY: Lab Results Component Value Date/Time WBC 59.3 (H) 12/11/2024 10:03 AM HGB 7.3 (L) 12/11/2024 10:03 AM HGBPOC 10.1 (L) 03/29/2024 01:39 AM HCT 23.5 (L) 12/11/2024 10:03 AM HCTPOC 30 (L) 03/29/2024 01:39 AM PLT 72 (L) 12/11/2024 10:03 AM MCV 102.2 12/11/2024 10:03 AM Lab Results Component Value Date/Time NA 134 (L) 12/11/2024 08:58 AM K 4.2 12/11/2024 08:58 AM CL 96 (L) 12/11/2024 08:58 AM CO2 22 12/11/2024 08:58 AM CA 8.2 (L) 12/11/2024 08:58 AM BUN 59 (H) 12/11/2024 08:58 AM CREAT 5.39 (H) 12/11/2024 08:58 AM GLUCOSE 196 (H) 12/11/2024 08:58 AM TOTALPROTEIN 5.4 (L) 12/08/2024 04:23 AM ALBUMIN 3.8 12/11/2024 08:58 AM BILITOTAL 0.4 12/08/2024 04:23 AM ALKPHOS 85 12/08/2024 04:23 AM AST 28 12/08/2024 04:23 AM ALT 76 (H) 12/08/2024 04:23 AM ANIONGAP 16 12/11/2024 08:58 AM REVIEW OF SYSTEMS: GENERAL: No c/o. Generally feels well. NEURO: no H/A's, dizziness, numbness, tingling HEENT: No blurry or double vision, not [place]IL[place], no neck pain, no dysphasia. Denies drainage, bleeding or sore throat. PULMONARY: No SOB, denies cough, hemoptysis. Does not wear supplemental O2 BREASTS: no new lumps or bumps noted by patient CARDIOVASCULAR: No chest pain, palpitations, orthopnea, syncope, no SOB with exertion, unusual swelling GASTROINTESTINAL: No abdominal pain, no black/bloody stools,change in bowel habits, N/V, no acid reflux GENITOURINARY:denies dysuria or hematuria. LYMPHATIC: Denies noticing any masses or lymph nodes MUSCULOSKELETAL: No joint pain, ambulates without assistance PSYCHOLOGICAL: negative for issues regarding depression/anxiety PHYSICAL EXAM: ECOG PERFORMANCE STATUS: BP 122/60 Pulse 87 Temp 96.9 ??F (36.1 ??C) Ht 5' 11 (1.803 m) Wt 105.9 kg (233 lb 6.4 oz) BMI 32.55 kg/m?? 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 Hypertension I10 Stage 4 chronic kidney disease (CMS/HCC) N18.4 Transient ischemic attack G45.9 Chronic lymphocytic leukemia (CMS/HCC) C91.10 Type 2 diabetes mellitus with kidney complication, with long-term current use of insulin ([facility]/HCC) E11.29, Z79.4 HLD (hyperlipidemia) E78.5 CAD (coronary artery disease) I25.10 History of coronary angioplasty with insertion of stent Z95.5 Hx of CABG Z95.1 Benign prostatic hyperplasia without lower urinary tract symptoms N40.0 Hemoptysis R04.2 Community acquired pneumonia of right upper lobe of lung J18.9 Lesion of right [place] kidney N28.9 Acute hypoxic respiratory failure (CMS/HCC) J96.01 Anemia D64.9 Thrombocytopenia D69.6 Moderate protein malnutrition E44.0 Dilated cardiomyopathy (CMS/HCC) I42.0 Acute combined systolic and diastolic congestive heart failure ([facility]/HCC) I50.41 Acute cystitis N30.00 Severe sepsis with septic shock ([facility]) A41.9, R65.21 ESRD (end stage renal disease) on dialysis ([facility]) N18.6, Z99.2 Metabolic acidosis E87.20 Elevated troponin level R79.89 Chronic combined systolic and diastolic CHF (congestive heart failure) ([facility]) I50.42 Ischemic dilated cardiomyopathy ([facility]) I25.5, I42.0 Melena K92.1 Acute blood loss anemia D62 ASSESSMENT & PLAN: 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 We discussed new treatment of Pirtobrutinib He is on dialysis. I reviewed the guidelines and there is no known effect of dialysis on this pill. He has had multiple side effects to multiple BTK inhibitors. I discussed we will start at the lowest dose and move upwards. Dosing is at 200 mg/day. Will start at 50 mg daily and see how he does. Reason for treatment is gastric ulcers caused by CLL. Discussed side effects. Discussed treatment options. 2. Hx CLL- Dx 2009 3. Thrombocytopenia 4. Dilated cardiomyopathy, chronic combined systolic and diastolic CHF 5. ESRD on dialysis 6. Recent acute blood loss anemia due to CLL induced ulcers Greater than 45 min spent This document was created by clay preparation supervisor software. Effort has been made to assure accuracy of this clay preparation supervisor. Any obvious errors or omissions should be clarified with the author of the document documented in this encounter Plan of Treatment Upcoming Encounters Date Type Department Care Team (Latest Contact Info) Description 01/03/2025 3:30 PM CDT Video Visit [facility] Cancer and Hematology [place] [address] [address] Iqra Brito NP [address] [address] 01/17/2025 11:45 AM CDT [facility] Laboratory Services [address] [place] [phone] 01/19/2025 3:00 PM CDT Office Visit [facility] Cancer and Hematology [place] [address] [place] [phone] Iqra Brito NP [address] [address] 01/21/2025 11:00 AM CDT Office Visit [facility] [address] [facility] [address] [place] [address] Lyndsey Dorsey, MARCELLO [address] [facility] [address] [place] [address] 02/07/2025 2:00 PM CDT Hospital Encounter [facility] Endoscopy [address] [place] [address] Clinton Ascencio, DO [address] [address] 02/07/2025 2:00 PM CDT - 02/07/2025 2:[address] [facility] Endoscopy [address] [place] [address] Clinton Ascencio, DO [address] [facility] [address] [place] [address] ESOPHAGOGASTRODUODENOSCOPY 03/18/2025 11:30 AM CDT Office Visit [facility] Vascular Surgery [place] [address] [place] [address] Klarissa Flowers MD [address] [facility] [address] [place] [address] Scheduled Procedures Name Priority Associated Diagnoses Date/Ti me ESOPHAGOGASTRODUODENOSCOPY gastric ulcer 02/07/2025 2:00 PM CDT documented as of this encounter Visit Diagnoses Diagnosis CLL (chronic lymphocytic leukemia) (CMS/HCC)- Primary Chronic lymphoid leukemia, without mention of having achieved remission documented in this encounter Care Teams Skilled Nursing Professional Relationship Specialty Start Date End Date Paula Sandoval MD [address] [place] [phone] PCP - General Family Practice 10/18/24 documented as of this encounter
--- OUTSIDE RECORDS SUMMARY | 2024-12-29 06:24 | XMS_ITS | Encounter Summary ---
Author Name [facility] [facility] Address [address] [place] [address] Care Team Providers Care Canvas Cutter Machine Name Role Phone TATO BARRAZA Primary Care [...] PART A Feb 21, 2009 PART A [id number] ANGELLA MARTIN PATIENT MEDICARE (WNR) MEDICARE (M) PART B Feb 21, 2009 PART B [id number] [phone] ANGELLA MARTIN PATIENT MEDICARE (WNR) MEDICARE (M) PART A Feb 21, 2009 PART A [id number] ANGELLA MARTIN PATIENT MEDICARE (WNR) MEDICARE (M) PART B Feb 21, 2009 PART B [id number] ANGELLA MARTIN PATIENT MEDICARE (WNR) MEDICARE (M) PART A Feb 21, 2009 PART A [id number] [phone] ANGELLA MARTIN PATIENT MEDICARE (WNR) MEDICARE (M) PART B Feb 21, 2009 PART B [id number] ANGELLA MARTIN PATIENT [employer] [place] [employer] PLAN F MEDIC ARE SUPPL EMENT 2013 PLAN F [id number] [phone] ANGELLA MARTIN PATIENT [employer] [place] [employer] SUPPLEMEN [place] MEDIC ARE SUPPL EMENT 2013 PLAN F [id number] [phone] ANGELLA MARTIN PATIENT Selected Encounter This section includes the information on record at [place] for the Encounter. Date/Time Encounter Type Encounter Description Reason Provider Source Dec 29, 2024 11:24 AM Outpatient Encounter COMMUNITY CARE CONSULT ADRI IHE Encounter Template Text not used by [place] Plan of Treatment: Future Appointments (+ 6 months) and Future Tests (+/- 45 days) The Plan of Treatment section includes future care activities for the patient from all [place] treatmentfacilities. This section includes future appointments and future orders which are active, pending or scheduled. Future Appointments This section includes appointments that were scheduled to occur 6 months from the date of the Encounter, up to a maximum of 20 appointments. The data comes from all [place] treatment facilities. Appointment Date/Time Appointment Type Appointme nt Facility Name Jun 13, 2025 08:40 AM AMBULATORY - MEDICINE [facility] Jun 20, 2025 10:00 AM AMBULATORY - MEDICINE [facility] Active, Pending, and Scheduled Orders This section includes a listing of several types of active, pending, and scheduled orders, including clinic medications orders, diagnostic test orders, procedure orders and consult orders; where the start date of the order is 45 days before the date of the Encounter or 45 days after the date of theEncounter. The data comes from all [place] treatment facilities. Test Date/Time Test Type Test Details Facility Name Dec 20, 2024 10:07 AM Consult Order COMMUNITY CARE-HEMATOLOGY/ONC 657A4 Cons [place] Operator's Choice [facility] Dec 22, 2024 12:54 PM Consult Order COMMUNITY CARE-GI GENERAL 657A4 Cons [place] Operator's Choice [facility] Dec 22, 2024 05:03 PM Consult Order COMMUNITY CARE-SLEEP STUDY-657A4 Cons [place] Operator's Choice [facility] Lab Results: +/- 30 days of the encounter This section includes the Chemistry and Hematology Lab Results on record with [place] for the patient. Radiology Reports and Pathology Reports are provided separately, in subsequent sections. Lab Results This section contains the Chemistry/Hematology Results that were resulted 30 days before or 30 daysafter the date of the Encounter. Date/Time Source Result Type Result - Unit Interpretation Reference Range Specimen Type Comment Dec 01, 2024 09:24 AM [facility] TSH (MA-PB) SERUM Specimen Type: SERUM No comment entered. Ordering Provider: TATO BARRAZA Report Released Date/Time: Dec 09, 2023 10:52 AM Reporting Lab: [place] [facility] [address] [place] [address] Performing Lab: [place] [facility] [address] [place] [address] TSH 4.243 u[IU]/mL 0.47-5 Dec 01, 2024 09:24 AM [facility] HGA1C BLOOD Specimen Type: BLOOD No comment entered. Ordering Provider: TATO BARRAZA Report Released Date/Time: Dec 09, 2023 10:52 AM Reporting Lab: [place] [facility] [address] [place] [address] Performing Lab: [place] [facility] [address] [place] [address] HGA1C 7.4 H 4.0-6.0 Dec 01, 2024 09:24 AM [facility] URINE ALBUMIN PROFILE-ih (PB) URINE Specimen Type: URINE No comment entered. Ordering Provider: TATO BARRAZA Report Released Date/Time: Dec 09, 2023 10:52 AM Reporting Lab: [place] [facility] [address] [place] [address] Performing Lab: [place] [facility] [address] [place] [address] URINE ALBUMIN (PB-STL) 417.30 mg/L uACR (PB-MA) 346.62 mg/g H 0-30 CREATININE URINE/OTHERS 120.39 mg/dL Dec 01, 2024 09:24 AM [facility] CHOLESTEROL PANEL (PB) PLASMA Specimen Type: P LASMA No comment entered. Ordering Provider: TATO BARRAZA Report Released Date/Time: Dec 09, 2023 10:52 AM Reporting Lab: [place] [facility] [address] [place] [address] Performing Lab: [place] [facility] [address] [place] [address] CHOLESTEROL 84 mg/dL 0-200 TRIGLYCERIDE 103 mg/dL 0-150 CALCULATED LDL 27.9 mg/dL HDL(New) 35.5 mg/dL L >40 HDL % OF TOTAL CHOLESTEROL (PB) 42.3 >25 Dec 01, 2024 09:24 AM [facility] COMPREHENSIVE METABOLIC PANEL PLASMA Specimen Type: PLASMA No comment entered. Ordering Provider: TATO BARRAZA Report Released Date/Time: Dec 09, 2023 10:52 AM Reporting Lab: [place] [facility] [address] [place] [address] Performing Lab: [place] [facility] [address] [place] [address] CREATININE 3.11 mg/dL H 0.7-1.3 UREA NITROGEN [...] 2020) 19 Dec 01, 2024 09:24 AM [facility] CBC BLOOD Specimen Type: BLOOD No comment entered. Ordering Provider: TATO BARRAZA Report Released Date/Time: Dec 09, 2023 10:52 AM Reporting Lab: [place] [facility] [address] [place] [address] Performing Lab: [place] [facility] [address] [place] [address] WBC 59.9 10*3/uL H 3.6-11.2 RBC 3.15 [...] Encounter. Date/Time Encounter Note(s) Provider Source Dec 29, 2024 11:24 AM NONVA NOTE: LOCAL TITLE: COMMUNITY CARE-LISHA SELF PRESENTING CARE COORD PLAN STANDARD TITLE: NONVA NOTE DATE OF NOTE: DEC 29, 2024@11:24 ENTRY DATE: DEC 29, 2024@11:25:30 AUTHOR: VIRY RUSH EXP COSIGNER: URGENCY: STATUS: COMPLETED COMMUNITY CARE-LISHA SELF PRESENTING CARE COORD PLAN 657A4 PB Has ADDENDA Emergency Notification Intake Date Presenting to the Facility: 12/28/2024 09:24 PM Method of Contact: Provider Notification ID: [id number] [facility] Referral #: Portal Generated Hospital: [facility] City: [place] State: [place] Chief complaint: Coughing up flem feels dry in chest SOB Medical Decision Makinyo male with end-stage renal disease on dialysis and history of CLL presents with family for evaluation of increasing cough for the past 3 to 4 days. Patient was discharged from [facility] on 12/11/2024 after an 8-day stay for pneumonia. He was treated with Rocephin at that time. Significant other was recently ill with a cold. Patient is chronically ill-appearing, but nontoxic. Vital signs are stable. Labs, EKG, and chest x-ray ordered in triage. Leukocytosis with a white blood cell count of 20.36, decreased from previous at 51.55 on 12/18/2024. Hemoglobin is 9.4, increased from 8.9 on 12/18. INR is 1.15. No electrolyte abnormalities noted. Creatinine is 3.1, chronic for patient due to ESRD. No hepatic abnormalities noted. Lactic is in the normal range of 1.2. proBNP is currently pending. Chest x-ray does show small bilateral pleural effusions with bibasilar atelectasis. Discussed all findings with patient and family. Advised that we are waiting on his proBNP. Patient requested to go home prior to results. Family does state that the BNP is always high. Family also reports that they are attempting to get his CLL under control so he can have his hemodialysis catheter removed so he can have his pacemaker replaced as it is at the 10-year scot. He will be following up with a new oncologist in [place] soon. For the cough, encouraged patient to try to take at least 2 deep breaths every hour while awake. Advised he would likely have a cough for several weeks given his recent diagnosis of pneumonia with sepsis. Encourage patient to continue to monitor his symptoms closely and keep in close contact with his medical care team. Return precautions provided. Patient and family state understanding and have no further questions or concerns at this time. Patient Disposition: Home Clinical Impression: Productive cough Fatigue Activity Restrictions/Additional Instructions: Your labs have improved from your last visit. Your BNP is currently pending. The chest x-ray does not show any sign of pneumonia, but there was a small amount of fluid. Use of a coolmist humidifier may help with the cough. We actually want you to cough up the mucus in your lungs. Try to remember to take 2 big breaths an hour to increase airflow to the lower aspects of your lungs Follow-up with your medical team, call in the next couple days with an update of symptoms and to discuss a recheck Return to the emergency department if any rapid worsening symptoms, onset of fever associated with worsening, difficulty breathing, sustained shortness of breath, chest pain, and as needed (ED Provider: ALL Calvillo) Current HEM/ONC consult in place #[id number] /es/ VIRY TORRES,RN Signed: 12/29/2024 11:29 Receipt Acknowledged By: * AWAITING SIGNATURE * TTAO BARRAZA * AWAITING SIGNATURE * LILIA JUDD * AWAITING SIGNATURE * JC GUSTAFSON * AWAITING SIGNATURE * NICHOLAS LION 12/28/2024 ADDENDUM STATUS: COMPLETED Vist[facility] Imaging Scanned Document - Addendum. [facility] SCANNED DOCUMENT SIGNATURE NOT REQUIRED Electronically Filed: 12/30/2024 by: JING Worthy [facility] VIRY RUSH [facility]
--- OUTSIDE RECORDS SUMMARY | 2024-12-30 16:45 | XMS_ITS | Continuity of Care Document ---
Author Name [facility] Organization [facility] Care Team Providers Care Tool Liaison Name Role Phone [facility] Unavailable Unavailable Problems Combined list of problems from Department of Defense and Veterans Affairs facilities. It does not include entries that were removed or entered in error. Problem Status Onset Date Problem Type Date of Resolution Comments Source Allergic rhinitis Active Condition [place] [facility] Bilateral tinnitus Active Condition [place] [facility] BPH - benign prostatic hyperplasia Active Condition [place] [facility] Cardiac pacemaker in situ Active Condition [place] [facility] Cardiomyopathy Active Condition [place] [facility] Carotid artery narrowing Active Condition Mar 07, 2021 Entered By: ATTO BARRAZA Comment: 50-60% bilaterally [place] [facility] Cerebrovascular accident Active Condition Mar 07, 2021 Entered By: TATO BARRAZA Comment: right hemiparesis (COVID) 12/2020 [place] [facility] Chronic congestive heart failure Active Condition Apr 26, 2024 Entered By: TATO BARRAZA Comment: combined [place] [facility] Chronic kidney disease stage 4 Active Condition Apr 26, 2024 Entered By: TATO BARRAZA Comment: hemodialysis T-Th-Sat [place] [facility] CLL - Chronic lymphocytic leukemia (SNOMED CT 21390954) [facility] artery disease (SNOMED CT 23682030) Active Condition [facility] Diabetic nephropathy Active Condition [facility] Diabetic polyneuropathy Active Condition [place] [facility] Exposure to potentially hazardous substance Active Condition [facility] - Gastro-esophageal reflux disease Active Condition [place] [facility] Hearing loss Active Condition [place] [facility] HLD - Hyperlipidemia (SNOMED CT 39451427) Active Condition [facility] HTN - Hypertension (SNOMED CT 98987354) Active Condition [place] [facility] Multiple actinic keratoses involving face Active Condition [place] [facility] Pain of left elbow joint Active Condition [place] [facility] Renal mass Active Condition Dec 31, 2 024 Entered By: TATO BARRAZA Comment: left; 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 [place] [facility] Sensorineural hearing loss of bilateral ears Active Condition [place] [facility] Sick sinus syndrome Active Condition [place] [facility] TIA Active Condition [place] [facility] Type 2 diabetes mellitus (SNOMED CT 26325112) Active Condition [place] [facility] Acute pancreatitis Inactive Condition 09/04/2020 [place] [facility] Arrhythmia * (ICD-9-CM 427.9) Inactive Condition 07/04/2016 [place] [facility] Family History of Diabetes Mellitus (ICD-9-CM V18.0) Inactive Condition 07/04/2016 [place] [facility] Hypertensive disorder (SNOMED CT 84753462) Inactive Condition 07/04/2016 [facility] Laboratory Examination Ordered as part of a Routine General Medical Examination Inactive Condition 07/04/2016 [facility] Routine General Medical Examination at a Health Care Facility * Inactive Condition 07/04/2016 [facility] Diagnosis: ICD-10-CM 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 diabetes mellitus with unspecified complications Active Diagnosis [facility] Diagnosis: ICD-10-CM Z46.1 Encounter for fitting and adjustment of hearing aid Active Diagnosis [place] [facility] Diagnosis: ICD-10-CM R09.81 Nasal congestion Active Diagnosis [facility] Diagnosis: ICD-10-CM I50.9 Heart failure, unspecified Active Diagnosis [facility] Diagnosis: ICD-10-CM E78.5 Hyperlipidemia, unspecified Active Diagnosis [facility] Diagnosis: ICD-10-CM R93.89 Abnormal findings on dx imaging of oth body structures Active Diagnosis [facility] Diagnosis: ICD-10-CM H90.3 Sensorineural hearing loss, bilateral Active Diagnosis [place] [facility] Diagnosis: ICD-10-CM Z13.9 Encounter for screening, unspecified Active Diagnosis [place] [facility] Diagnosis: ICD-10-CM Z13.5 Encounter for screening for eye and ear disorders Active Diagnosis [facility] Diagnosis: ICD-10-CM 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 Diagnosis [place] [place] Diagnosis: ICD-10-CM Z71.89 Other specified counseling Active Diagnosis [facility] Diagnosis: ICD-10-CM H90.5 Unspecified sensorineural hearing loss Active Diagnosis [facility] Diagnosis: ICD-10-CM R10.9 Unspecified abdominal pain Active Diagnosis [facility] Medications Combined list of outpatient medications from [...] A DAY ORAL ACTIVE TATO BARRAZA 2023 [facility] ATORVASTATI N CA 80MG TAB TAKE ONE TABLET BY MOUTH EVERY EVENING FOR HIGH CHOLESTE ROL TAKE ORALLY WITH EVENING MEAL ORAL ACTIVE 04/27/2025 [id number] 5 RADHA PINK 2023 90 [facility] CARVEDILOL 6.25MG TAB TAKE ONE TABLET BY MOUTH TWICE A DAY FOR HEART FAILURE TAKE WITH FOOD. ORAL ACTIVE 12/23/2025 [id number] 5 TATO BARRAZA 2024 180 [facility] CARVEDILOL 6.25MG TAB TAKE ONE-HALF TABLET BY MOUTH TWICE A DAY FOR HEART FAILURE TAKE WITH FOOD. ORAL DISCONT INUED (EDIT) 04/27/2025 [id number] 5 TATO BARRAZA 2023 90 [facility] CHOLECALCIF ZULEYKA 50MCG (2,000UNIT) TAB TAKE TWO TABLETS BY MOUTH ONCE A DAY FOR VITAMIN D SUPPLEME NTATION ORAL ACTIVE 04/27/2025 [id number] 5 TATO BARRAZA 2023 180 [facility] CHOLECALCIF ZULEYKA 50MCG (2,000UNIT) TAB TAKE TWO TABLETS BY MOUTH ONCE A DAY FOR VITAMIN D SUPPLEME NTATION ORAL DISCONT INUED 04/07/2024 [id number] JENY GAMA 10/18/ 2023 180 [place] [facility] CLOPIDOGREL BISULFATE 75MG TAB TAKE ONE TABLET BY MOUTH ONCE A DAY TO THIN BLOOD ORAL 02/06/2024 [id number] 4 TATO BARRAZA 2022 90 [facility] DICLOFENAC NA 1% GEL,TOP APPLY 2 GM TO AFFECTED AREA(S) ONCE A DAY FOR PAIN/INF LAMMATIO N; NOT MORE THAN 16 GRAMS DAILY TO ANY LOWER EXTREMIT Y JOINT. NOT MORE THAN 8 GRAMS DAILY TO ANY UPPER EXTREMIT Y JOINT. MAX 32GM/DAY OVER ALL JOINTS. (MEASURE DOSE WITH RULER ATTACHED INSIDE BOX) TOPICA L ACTIVE 04/27/2025 [id number] 5 TATO BARRAZA 2023 300 [facility] FINASTERIDE 5MG TAB TAKE ONE TABLET BY MOUTH ONCE A DAY SWALLOW WHOLE, DO NOT CRUSH, SPLIT, OR CHEW. ORAL ACTIVE 09/18/2025 [id number] 5 RADHA PINK 2024 90 [facility] FINASTERIDE 5MG TAB TAKE ONE TABLET BY MOUTH ONCE A DAY SWALLOW WHOLE, DO NOT CRUSH, SPLIT, OR CHEW. ORAL DISCONT INUED 08/20/2024 [id number] 4 TATO BARRAZA 2023 90 [facility] FISH OIL 1000MG (500MG DHA/EPA) CAP,ORAL TAKE 2 CAPSULES BY MOUTH TWICE A DAY WITH MEALS ORAL ACTIVE RADHA PINK 2023 [facility] FLUTICASONE PROPIONATE 50MCG/SPRAY SOLN,NASAL, 16GM INSTILL 1 SPRAY IN NOSTRIL( S) ONCE A DAY FOR ALLERGIE S (MUST BE USED DIRECTED FOR MINIMUM OF 21 DAYS TO PROVIDE ADEQUATE BENEFITS ) NASAL ACTIVE 09/18/2025 [id number] 5 RADHA PINK 2024 3 [facility] FLUTICASONE PROPIONATE 50MCG/SPRAY SOLN,NASAL, 16GM INSTILL 1 SPRAY IN NOSTRIL( S) ONCE A DAY FOR ALLERGIE S (MUST BE USED DIRECTED FOR MINIMUM OF 21 DAYS TO PROVIDE ADEQUATE BENEFITS ) NASAL DISCONT INUED 08/20/2024 [id number] TATO BARRAZA 2023 3 [facility] FOLIC ACID 1MG TAB TAKE ONE TABLET BY MOUTH ONCE A DAY FOR FOLIC ACID SUPPLEME NTATION ORAL ACTIVE 06/08/2025 [id number] RADHA PINK Liam 2023 100 [facility] FUROSEMIDE 40MG TAB TAKE ONE TABLET BY MOUTH EVERY MORNING FOR FLUID RETENTIO N (EDEMA) TAKE DAILY EXCEPT DIALYSIS DAYS ORAL DISCONT INUED (EDIT) 04/27/2025 [id number] RADHA PINK Liam 2023 90 [facility] FUROSEMIDE 80MG TAB TAKE ONE TABLET BY MOUTH TWICE A DAY FOR FLUID RETENTIO N (EDEMA) TAKE DAILY EXCEPT DIALYSIS DAYS ONLY ON NONDIALY SIS DAYS (FRIDAY, , FRIDAY, FRIDAY ORAL DISCONT INUED BY PROVIDE R 04/27/2025 [id number] 4 TATO BARRAZA 2023 180 [facility] INSULIN REG HUMAN 100 U/ML INJ NOVOLIN R INJECT 15 UNITS UNDER THE SKIN THREE TIMES A DAY BEFORE MEALS FOR DIABETES ADMINIST ER 30 MINUTES BEFORE FOOD DIRECTED . DISCARD 30 DAYS AFTER OPENING. SUBCUT ANEOUS ACTIVE 09/18/2025 [id number] JOESPH RADHA Liam 2024 5 [facility] INSULIN REG HUMAN 100 U/ML INJ NOVOLIN R INJECT 10 UNITS UNDER THE SKIN EVERY MORNING BEFORE A MEAL FOR DIABETES ADMINIST ER 30 MINUTES BEFORE FOOD DIRECTED . DISCARD 30 DAYS AFTER OPENING. PER SLIDING SCALE ADMINIST ER 30 MINUTES BEFORE FOOD DIRECTED . DISCARD 30 DAYS AFTER OPENING. PER SLIDING SCALE SUBCUT ANEOUS 04/25/2024 [id number] 4 RADHA PINK 2023 5 [facility] INSULIN,GLA RGINE,HUMAN 100 UNT/ML INJ INJECT 50 UNITS UNDER THE SKIN EVERY MORNING FOR DIABETES (AT SAME TIME EACH DAY) - (DISCARD ANY UNUSED PORTION 28 DAYS AFTER OPENING) ### SUBCUT ANEOUS ACTIVE 09/18/2025 [id number] RADHA PINK 2024 5 [facility] INSULIN,GLA RGINE,HUMAN 100 UNT/ML INJ INJECT 10 UNITS UNDER THE SKIN EVERY MORNING FOR DIABETES (AT SAME TIME EACH DAY) - (DISCARD ANY UNUSED PORTION 28 DAYS AFTER OPENING) SUBCUT ANEOUS DISCONT INUED (EDIT) 09/09/2025 [id number] 5 RADHA PINK Liam 2024 5 [facility] INSULIN,GLA RGINE,HUMAN 100 UNT/ML INJ INJECT 40 UNITS UNDER THE SKIN EVERY MORNING FOR DIABETES (AT SAME TIME EACH DAY) - (DISCARD ANY UNUSED PORTION 28 DAYS AFTER OPENING) SUBCUT ANEOUS DISCONT INUED (EDIT) 04/27/2025 [id number] 4 TATO BARRAZA 2023 5 [facility] INSULIN,GLA RGINE-YFGN 100UNIT/ML INJ INJECT 35 UNITS UNDER THE SKIN EVERY MORNING FOR DIABETES (AT SAME TIME EACH DAY) - (DISCARD ANY UNUSED PORTION 28 DAYS AFTER OPENING) SUBCUT ANEOUS 04/24/2024 [id number] 4 TATO BARRAZA 2022 6 [facility] ISOSORBIDE MONONITRATE 120MG TAB,SA TAKE ONE TABLET BY MOUTH ONCE A DAY TAKE ON EMPTY STOMACH. SWALLOW WHOLE. DO NOT CRUSH OR CHEW. ORAL DISCONT INUED (EDIT) 09/25/2024 [id number] 4 RAQUEL MARTINEZ 2023 90 [place] [facility] ISOSORBIDE MONONITRATE 30MG TAB,SA TAKE ONE TABLET BY MOUTH ONCE A DAY FOR CHEST PAIN TAKE ON EMPTY STOMACH. SWALLOW WHOLE. DO NOT CRUSH OR CHEW. ORAL ACTIVE 04/27/2025 [id number] 5 TATO BARRAZA [address] [place] [address] [facility] LORATADINE 10MG TAB TAKE ONE TABLET BY MOUTH ONCE A DAY ON EMPTY STOMACH FOR ALLERGIE S ORAL DISCONT INUED 07/25/2024 [id number] CHRISTIALF LAROSEMY 2023 90 [facility] LORATADINE 10MG TAB TAKE ONE TABLET BY MOUTH ONCE A DAY ON EMPTY STOMACH FOR ALLERGIE S ORAL DISCONT INUED 05/25/2024 [id number] [facility] TATO 2023 90 [facility] LORATADINE 10MG TAB TAKE ONE TABLET BY MOUTH ONCE A DAY ON EMPTY STOMACH FOR ALLERGIE S ORAL DISCONT INUED 02/06/2024 [id number] 4 CHRISTIALFMY [address] [place] [address] [facility] LORATADINE 10MG TAB TAKE ONE TABLET BY MOUTH ONCE A DAY ON EMPTY STOMACH FOR ALLERGIE S ORAL 12/08/2024 [id number] 5 CHRISTI TATO 2024 90 [facility] MAGNESIUM OXIDE 400MG TAB TAKE ONE TABLET BY MOUTH ONCE A DAY FOR DIETARY MAGNESIU M SUPPLEME NTATION ORAL 04/07/2024 [id number] JENY GAMA 2022 120 [place] [facility] METOPROLOL TARTRATE 25MG TAB TAKE ONE TABLET BY MOUTH TWICE A DAY TAKE WITH OR IMMEDIAT JACKI FOLLOWIN G FOOD. ORAL DISCONT INUED BY PROVIDE R 11/13/2024 [id number] 4 Sharon EL USSAIN 2023 180 [place] [facility] NIFEDIPINE (EQV-CC) 60MG TAB,SA TAKE ONE TABLET BY MOUTH ONCE A DAY FOR HIGH BLOOD PRESSURE PREFERAB LE TO TAKE ON EMPTY STOMACH. SWALLOW WHOLE; DO NOT CRUSH OR CHEW. AVOIDGRA PEFRUIT JUICE. ORAL 08/20/2024 [id number] CHRISTITATO 2023 90 [facility] NITROGLYCER IN 0.4MG TAB,SUBLING UAL DISSOLVE ONE TABLET UNDER THE TONGUE ONE-TIME FOR CHEST PAIN NEEDED; IF NO IMPROVEM ENT AFTER FIRST DOSE CALL --1. MAY TAKE 2 ADDITION AL DOSES, 5 MINUTES APART SUBLIN GUAL ACTIVE 04/20/2025 [id number] 5 CHRISTITATO 2023 100 [facility] OLANZAPINE 10MG TAB TAKE ONE-HALF TABLET BY MOUTH AT BEDTIME NEEDED FOR ANXIETY ORAL ACTIVE 04/27/2025 [id number] ALF BARRAZAMY 2023 90 [facility] PANTOPRAZOL E NA 40MG TAB,EC TAKE ONE TABLET BY MOUTH EVERY MORNING BEFORE A MEAL FOR GASTROES OPHAGEAL REFLUX DISEASE TAKE 30 MINUTES BEFORE MEAL(S) ORAL ACTIVE 12/23/2025 [id number] 5 CHRISTI, TATO 2024 90 [facility] SEVELAMER CARBONATE 800MG TAB TAKE ONE TABLET BY MOUTH THREE TIMES A DAY WITH MEAL(S) TAKE WITH FOOD. ORAL ACTIVE 04/24/2025 [id number] TREVER MCRAE 2023 90 [facility] [place] 2] SODIUM ZIRCONIUM CYCLOSILICA TE 10GM/PKT PWDR,RENST- ORAL MIX AND DRINK 10GM/PKT BY MOUTH EVERY OTHER DAY FOR 90 DAYS FOR HIGH POTASSIU M DISSOLVE IN WATER ORAL DISCONT INUED BY PROVIDE R 06/30/2024 [id number] 4 Antonio JOHNSON 2023 30 [place] [facility] TAMSULOSIN HCL 0.4MG CAP TAKE TWO CAPSULES BY MOUTH EVERY EVENING APPROXIM ATELY 30 MINUTES AFTER THE SAME MEAL EACH DAY (FOR PROSTATE ) ORAL ACTIVE 03/20/2025 [id number] RADHA PINK 2023 180 [facility] TAMSULOSIN HCL 0.4MG CAP TAKE TWO CAPSULES BY MOUTH EVERY EVENING APPROXIM ATELY 30 MINUTES AFTER THE SAME MEAL EACH DAY (FOR PROSTATE ) ORAL DISCONT INUED 04/07/2024 [id number] JENY GAMA 2022 180 [facility] [place] 2[place] TORSEMIDE 100MG TAB TAKE ONE TABLET BY MOUTH DIRECTED ON NON-DIAL YSIS DAYS (FRIDAY, , FRIDAY, AND FRIDAY) ORAL ACTIVE 09/14/2025 [id number] 5 TREVER MCRAE 2024 [facility]ies, Adverse Reactions, Alerts Combined list of allergies from Department of Defense and Veterans Affairs facilities. It does not include entries that were removed or entered in error. Substance Category Reaction Severity Reaction type Status Date Reported Comments Source ALLOPURINOL Propensity to adverse reactions to drug (finding) Eruption active 8 [facility] Propensity to adverse reactions to drug (finding) Eruption active 3 [facility] FLOMAX Propensity to adverse reactions to drug (finding) Chill, Finding of vomiting, Diarrhea, Weakness present active 8 [facility] METFORMIN Propensity to adverse reactions to drug (finding) NAUSEA,VO MITING active 3 [facility] Immunizations Combined list of available immunizations from the [facility] facilities. Immunization Series Date Given Administered By Site Reaction Lot Number CVX Code Drug Stockholder Status Comments Source PNEUMOCOCCAL POLYSACCHARID E PPV23 2020 33 complet [facility] ZOSTER RECOMBINANT 2 2020 187 complet [facility] ZOSTER RECOMBINANT 1 2020 187 complet ed [facility] PNEUMOCOCCAL CONJUGATE PCV 13 2020 133 complet [facility] TDAP 2020 115 complet [facility] COVID-19 (PFIZER), MRNA, LNP-S, PF, 30 MCG/0.3 ML DOSE 2 2020 208 complet ed [facility] COVID-19 (incrediblue), MRNA, LNP-S, PF, 30 MCG/0.3 ML DOSE 1 2020 208 complet ed [facility] COVID-19 (incrediblue), MRNA, LNP-S, PF, 30 MCG/0.3 ML DOSE 1 2020 208 complet ed [facility] L INFORMATI ON - FROM OTHER REGISTRY, [facility] PNEUMOCOCCAL CONJUGATE PCV 13 1 2015 133 complet ed HISTORICA L INFORMATI ON - FROM OTHER [facility], [facility] INFLUENZA, UNSPECIFIED FORMULATION [address] [facility] INFLUENZA, UNSPECIFIED FORMULATION 2011 88 complet ed [facility] TD(ADULT) UNSPECIFIED FORMULATION 2004 139 complet ed [facility] INFLUENZA (HISTORICAL) 2003 88 complet ed [facility] INFLUENZA (HISTORICAL) 2002 88 complet ed [facility] Results Combined list of recent [...] 2023 10:52 AM Reporting Lab: [place] [facility] [address] [place] [phone] Performin g Lab: [place] [facility] [address] [place] [address] [facility] TSH (MA-PB) THYROTROPIN [UNITS/VOLU ME] IN SERUM OR PLASMA 4.243 u[IU]/mL 0.47 - 5 12/01 Specimen Type: SERUM No comment entered. Ordering Provider: TATO BARRAZA Report Released Date/Time : Dec 09, 2023 10:52 AM Reporting Lab: [place] [facility] [address] [place] [address] Performin g Lab: [place] [facility] [address] [place] [address] [facility] URINE ALBUMIN PROFILE-ih (PB) ALBUMIN [MASS/VOLUM E] IN URINE 417.30 mg/L 12/01 Specimen Type: URINE No comment entered. Ordering Provider: TATO BARRAZA Report Released Date/Time : Dec 09, 2023 10:52 AM Reporting Lab: [place] [facility] [address] [place] [address] Performin g Lab: [place] [facility] [address] [place] [address] [facility] URINE ALBUMIN PROFILE-ih (PB) ALBUMIN/CRE ATININE [MASS RATIO] IN URINE 346.62 mg/g 0 - 30 12/01 H Specimen Type: URINE No comment entered. Ordering Provider: TATO BARRAZA Report Released Date/Time : Dec 09, 2023 10:52 AM Reporting Lab: [place] [facility] [address] [place] [address] Performin g Lab: [place] [facility] [address] [place] [address] [facility] URINE ALBUMIN PROFILE-ih (PB) CREATININE [MASS/VOLUM E] IN URINE 120.39 mg/dL 12/01 Specimen Type: URINE No comment entered. Ordering Provider: TATO BARRAZA Report Released Date/Time : Dec 09, 2023 10:52 AM Reporting Lab: [place] [facility] [address] [place] [phone] Performin g Lab: [place] [facility] [address] [place] [phone] [facility] CHOLESTERO L PANEL (PB) CHOLESTEROL [MASS/VOLUM E] IN SERUM OR PLASMA 84 mg/dL 0 - 200 12/01 Specimen Type: PLASMA No comment entered. Ordering Provider: TATO BARRAZA Report Released Date/Time : Dec 09, 2023 10:52 AM Reporting Lab: [place] [facility] [address] [place] [address] Performin g Lab: [place] [facility] [address] [place] [address] [facility] CHOLESTERO L PANEL (PB) TRIGLYCERID E [MASS/VOLUM E] IN SERUM OR PLASMA 103 mg/dL 0 - 150 12/01 Specimen Type: PLASMA No comment entered. Ordering Provider: TATO BARRAZA Report Released Date/Time : Dec 09, 2023 10:52 AM Reporting Lab: [place] [facility] [address] [place] [address] Performin g Lab: [place] [facility] [address] [place] [address] [facility] CHOLESTERO L PANEL (PB) CHOLESTEROL IN LDL [MASS/VOLUM E] IN SERUM OR PLASMA BY CALCULATION 27.9 mg/dL 12/01 Specimen Type: PLASMA No comment entered. Ordering Provider: TATO BARRAZA Report Released Date/Time : Dec 09, 2023 10:52 AM Reporting Lab: [place] [facility] [address] [place] [address] Performin g Lab: [place] [facility] [address] [place] [address] [facility] CHOLESTERO L PANEL (PB) CHOLESTEROL IN HDL [MASS/VOLUM E] IN SERUM OR PLASMA 35.5 mg/dL 40 12/01 L Specimen Type: PLASMA No comment entered. Ordering Provider: TATO BARRAZA Report Released Date/Time : Dec 09, 2023 10:52 AM Reporting Lab: [place] [facility] [address] [place] [address] Performin g Lab: [place] [facility] [address] [place] [address] [facility] CHOLESTERO L PANEL (PB) CHOLESTEROL IN HDL/CHOLEST ZULEYKA.TOTAL [MASS RATIO] IN SERUM OR PLASMA 42.3 25 12/01 Specimen Type: PLASMA No comment entered. Ordering Provider: TATO BARRAZA Report Released Date/Time : Dec 09, 2023 10:52 AM Reporting Lab: [place] [facility] [address] [place] [address] Performin g Lab: [place] [facility] [address] [place] [address] [facility] COMPREHENS ERNST METABOLIC PANEL CREATININE [MASS/VOLUM E] IN SERUM OR PLASMA 3.11 mg/dL 0.7 - 1.3 12/01 H Specimen Type: PLASMA No comment entered. Ordering Provider: TATO BARRAZA Report Released Date/Time : Dec 09, 2023 10:52 AM Reporting Lab: [place] [facility] [address] [place] [address] Performin g Lab: [place] [facility] [address] [place] [address] [facility] COMPREHENS ERNST METABOLIC PANEL UREA NITROGEN [MASS/VOLUM E] IN SERUM OR PLASMA 24 mg/dL 9 - 25 12/01 Specimen Type: PLASMA No comment entered. Ordering Provider: TATO BARRAZA Report Released Date/Time : Dec 09, 2023 10:52 AM Reporting Lab: [place] [facility] [address] [place] [address] Performin g Lab: [place] [facility] [address] [place] [address] [facility] COMPREHENS ERNST METABOLIC PANEL GLUCOSE [MASS/VOLUM E] IN SERUM OR PLASMA 212 mg/dL 72 - 99 12/01 H Specimen Type: PLASMA No comment entered. Ordering Provider: TATO BARRAZA Report Released Date/Time : Dec 09, 2023 10:52 AM Reporting Lab: [place] [facility] [address] [place] [address] Performin g Lab: [place] [facility] [address] [place] [address] [facility] COMPREHENS ERNST METABOLIC PANEL SODIUM [MOLES/VOLU ME] IN SERUM OR PLASMA 137 meq/L 136 - 145 12/01 Specimen Type: PLASMA No comment entered. Ordering Provider: TATO BARRAZA Report Released Date/Time : Dec 09, 2023 10:52 AM Reporting Lab: [place] [facility] [address] [place] [address] Performin g Lab: [place] [facility] [address] [place] [address] [facility] COMPREHENS ERNST METABOLIC PANEL POTASSIUM [MOLES/VOLU ME] IN SERUM OR PLASMA 4.6 meq/L 3.5 - 5 12/01 Specimen Type: PLASMA No comment entered. Ordering Provider: TATO BARRAZA Report Released Date/Time : Dec 09, 2023 10:52 AM Reporting Lab: [place] [facility] [address] [place] [address] Performin g Lab: [place] [facility] [address] [place] [address] [facility] COMPREHENS ERNST METABOLIC PANEL CHLORIDE [MOLES/VOLU ME] IN SERUM OR PLASMA 100 meq/L 98 - 107 12/01 Specimen Type: PLASMA No comment entered. Ordering Provider: TATO BARRAZA Report Released Date/Time : Dec 09, 2023 10:52 AM Reporting Lab: [place] [facility] [address] [place] [address] Performin g Lab: [place] [facility] [address] [place] [address] [facility] COMPREHENS ERNST METABOLIC PANEL CARBON DIOXIDE, TOTAL [MOLES/VOLU ME] IN SERUM OR PLASMA 27 meq/L 22 - 31 12/01 Specimen Type: PLASMA No comment entered. Ordering Provider: TATO BARRAZA Report Released Date/Time : Dec 09, 2023 10:52 AM Reporting Lab: [place] [facility] [address] [place] [address] Performin g Lab: [place] [facility] [address] [place] [address] [facility] COMPREHENS ERNST METABOLIC PANEL CALCIUM [MASS/VOLUM E] IN SERUM OR PLASMA 8.9 mg/dL 8.4 - 10.4 12/01 Specimen Type: PLASMA No comment entered. Ordering Provider: TATO BARRAZA Report Released Date/Time : Dec 09, 2023 10:52 AM Reporting Lab: [place] [facility] [address] [place] [address] 8 Performin g Lab: [place] [facility] [address] [place] [address] [facility] COMPREHENS ERNST METABOLIC PANEL PROTEIN [MASS/VOLUM E] IN SERUM OR PLASMA 6.1 g/dL 6 - 8.6 12/01 Specimen Type: PLASMA No comment entered. Ordering Provider: TATO BARRAZA Report Released Date/Time : Dec 09, 2023 10:52 AM Reporting Lab: [place] [facility] [address] [place] [address] 8 Performin g Lab: [place] [facility] [address] [place] [address] 8 [facility] COMPREHENS ERNST METABOLIC PANEL ALBUMIN [MASS/VOLUM E] IN SERUM OR PLASMA 4.1 g/dL 3.4 - 5 12/01 Specimen Type: PLASMA No comment entered. Ordering Provider: TATO BARRAZA Report Released Date/Time : Dec 09, 2023 10:52 AM Reporting Lab: [place] [facility] [address] [place] [address] 8 Performin g Lab: [place] [facility] [address] [place] [address] 8 [facility] COMPREHENS ERNST METABOLIC PANEL BILIRUBIN.T OTAL [MASS/VOLUM E] IN SERUM OR PLASMA 1.2 mg/dL 0.2 - 1.2 12/01 Specimen Type: PLASMA No comment entered. Ordering Provider: TATO BARRAZA Report Released Date/Time : Dec 09, 2023 10:52 AM Reporting Lab: [place] [facility] [address] [place] [address] 8 Performin g Lab: [place] [facility] [address] [place] [address] 8 [facility] COMPREHENS ERNST METABOLIC PANEL ALKALINE PHOSPHATASE [ENZYMATIC ACTIVITY/VO LUME] IN SERUM OR PLASMA 105 U/L 40 - 150 12/01 Specimen Type: PLASMA No comment entered. Ordering Provider: TATO BARRAZA Report Released Date/Time : Dec 09, 2023 10:52 AM Reporting Lab: [place] [facility] [address] [place] [address] 8 Performin g Lab: [place] [facility] [address] [place] [address] 8 [facility] COMPREHENS ERNST METABOLIC PANEL ASPARTATE AMINOTRANSF ERASE [ENZYMATIC ACTIVITY/VO LUME] IN SERUM OR PLASMA 10 U/L 5 - 34 12/01 Specimen Type: PLASMA No comment entered. Ordering Provider: TATO BARRAZA Report Released Date/Time : Dec 09, 2023 10:52 AM Reporting Lab: [place] [facility] [address] [place] [address] 8 Performin g Lab: [place] [facility] [address] [place] [address] 8 [facility] COMPREHENS ERNST METABOLIC PANEL ALANINE AMINOTRANSF ERASE [ENZYMATIC ACTIVITY/VO LUME] IN SERUM OR PLASMA <7U/L 8 - 40 12/01 L Specimen Type: PLASMA No comment entered. Ordering Provider: TATO BARRAZA Report Released Date/Time : Dec 09, 2023 10:52 AM Reporting Lab: [place] [facility] [address] [place] [address] 8 Performin g Lab: [place] [facility] [address] [place] [address] 8 [facility] COMPREHENS ERNST METABOLIC PANEL GLOMERULAR FILTRATION RATE/1.73 SQ M.PREDICTED [VOLUME RATE/AREA] IN SERUM, PLASMA OR BLOOD BY CREATININE- BASED FORMULA (CKD-EPI 2020) 19 12/01 Specimen Type: PLASMA No comment entered. Ordering Provider: TATO BARRAZA Report Released Date/Time : Dec 09, 2023 10:52 AM Reporting Lab: [place] [facility] [address] [place] [address] 8 Performin g Lab: [place] [facility] [address] [place] [address] 8 [facility] CBC LEUKOCYTES [#/VOLUME] IN BLOOD BY AUTOMATED COUNT 59.9 10*3/uL 3.6 - 11.2 12/01 H Specimen Type: BLOOD No comment entered. Ordering Provider: TATO BARRAZA Report Released Date/Time : Dec 09, 2023 10:52 AM Reporting Lab: [place] [facility] [address] [place] [address] 8 Performin g Lab: [place] [facility] [address] [place] [address] 8 [facility] CBC ERYTHROCYTE S [#/VOLUME] IN BLOOD BY AUTOMATED COUNT 3.15 10*6/uL 4.10 - 5.70 12/01 L Specimen Type: BLOOD No comment entered. Ordering Provider: TATO BARRAZA Report Released Date/Time : Dec 09, 2023 10:52 AM Reporting Lab: [place] [facility] [address] [place] [address] 8 Performin g Lab: [place] [facility] [address] [place] [address] [facility] CBC HEMOGLOBIN [MASS/VOLUM E] IN BLOOD 9.6 g/dL 13.1 - 16.8 12/01 L Specimen Type: BLOOD No comment entered. Ordering Provider: TATO BARRAZA Report Released Date/Time : Dec 09, 2023 10:52 AM Reporting Lab: [place] [facility] [address] [place] [address] 8 Performin g Lab: [place] [facility] [address] [place] [address] 8 [facility] CBC HEMATOCRIT [VOLUME FRACTION] OF BLOOD 31.9 38.2 - 48.4 12/01 L Specimen Type: BLOOD No comment entered. Ordering Provider: TATO BARRAZA Report Released Date/Time : Dec 09, 2023 10:52 AM Reporting Lab: [place] [facility] [address] [place] [address] 8 Performin g Lab: [place] [facility] [address] [place] [address] 8 [facility] CBC MCV [ENTITIC VOLUME] BY AUTOMATED COUNT 101.3 fL 80.0 - 100.0 12/01 H Specimen Type: BLOOD No comment entered. Ordering Provider: TATO BRARAZA Report Released Date/Time : Dec 09, 2023 10:52 AM Reporting Lab: [place] [facility] [address] [place] [address] 8 Performin g Lab: [place] [facility] [address] [place] [address] 8 [facility] CBC MCH [ENTITIC MASS] BY AUTOMATED COUNT 30.5 pg 27.0 - 34.0 12/01 Specimen Type: BLOOD No comment entered. Ordering Provider: TATO BARRAZA Report Released Date/Time : Dec 09, 2023 10:52 AM Reporting Lab: [place] [facility] [address] [place] [address] 8 Performin g Lab: [place] [facility] [address] [place] [address] 8 [facility] CBC MCHC [MASS/VOLUM E] BY AUTOMATED COUNT 30.1 g/dL 33.0 - 36.0 12/01 L Specimen Type: BLOOD No comment entered. Ordering Provider: TATO BARRAZA Report Released Date/Time : Dec 09, 2023 10:52 AM Reporting Lab: [place] [facility] [address] [place] [address] 8 Performin g Lab: [place] [facility] [address] [place] [address] 8 [facility] CBC PLATELETS [#/VOLUME] IN BLOOD BY AUTOMATED COUNT 100 10*3/uL 150 - 400 12/01 L Specimen Type: BLOOD No comment entered. Ordering Provider: TATO BARRAZA Report Released Date/Time : Dec 09, 2023 10:52 AM Reporting Lab: [place] [facility] [address] [place] [address] 8 Performin g Lab: [place] [facility] [address] [place] [address] 8 [facility] CBC PLATELET MEAN VOLUME [ENTITIC VOLUME] IN BLOOD BY AUTOMATED COUNT 9.2 fL 7.5 - 11.2 12/01 Specimen Type: BLOOD No comment entered. Ordering Provider: TATO BARRAZA Report Released Date/Time : Dec 09, 2023 10:52 AM Reporting Lab: [place] [facility] [address] [place] [address] 8 Performin g Lab: [place] [facility] [address] [place] [address] 8 [facility] CBC SEGMENTED NEUTROPHILS /100 LEUKOCYTES IN BLOOD BY MANUAL COUNT 5 12/01 Specimen Type: BLOOD No comment entered. Ordering Provider: TATO BARRAZA Report Released Date/Time : Dec 09, 2023 10:52 AM Reporting Lab: [place] [facility] [address] [place] [address] 8 Performin g Lab: [place] [facility] [address] [place] [address] [facility] CBC MONOCYTES/1 00 LEUKOCYTES IN BLOOD BY AUTOMATED COUNT 1 12/01 Specimen Type: BLOOD No comment entered. Ordering Provider: TATO BARRAZA Report Released Date/Time : Dec 09, 2023 10:52 AM Reporting Lab: [place] [facility] [address] [place] [address] 8 Performin g Lab: [place] [facility] [address] [place] [address] 8 [facility] CBC PLATELET ADEQUACY [PRESENCE] IN BLOOD BY LIGHT MICROSCOPY DECREASED 12/01 Specimen Type: BLOOD No comment entered. Ordering Provider: TATO BARRAZA Report Released Date/Time : Dec 09, 2023 10:52 AM Reporting Lab: [place] [facility] [address] [place] [address] 8 Performin g Lab: [place] [facility] [address] [place] [address] [facility] CBC ANISOCYTOSI S [PRESENCE] IN BLOOD BY LIGHT MICROSCOPY 1+ 12/01 Specimen Type: BLOOD No comment entered. Ordering Provider: TATO BARRAZA Report Released Date/Time : Dec 09, 2023 10:52 AM Reporting Lab: [place] [facility] [address] [place] [address] 8 Performin g Lab: [place] [facility] [address] [place] [address] 8 [facility] CBC SMUDGE CELLS [PRESENCE] IN BLOOD BY LIGHT MICROSCOPY 1+ 12/01 Specimen Type: BLOOD No comment entered. Ordering Provider: TATO BARRAZA Report Released Date/Time : Dec 09, 2023 10:52 AM Reporting Lab: [place] [facility] [address] [place] [address] 8 Performin g Lab: [place] [facility] [address] [place] [address] 8 [facility] CBC ERYTHROCYTE DISTRIBUTIO N WIDTH [RATIO] BY AUTOMATED COUNT 18.4 11.8 - 15.1 12/01 H Specimen Type: BLOOD No comment entered. Ordering Provider: TATO BARRAZA Report Released Date/Time : Dec 09, 2023 10:52 AM Reporting Lab: [place] [facility] [address] [place] [address] 8 Performin g Lab: [place] [facility] [address] [place] [address] 8 [facility] CBC LYMPHOCYTES /100 LEUKOCYTES IN BLOOD BY MANUAL COUNT 70 12/01 Specimen Type: BLOOD No comment entered. Ordering Provider: TATO BARRAZA Report Released Date/Time : Dec 09, 2023 10:52 AM Reporting Lab: [place] [facility] [address] [place] [address] 8 Performin g Lab: [place] [facility] [address] [place] [address] 8 [facility] CBC LYMPHOCYTES /100 LEUKOCYTES IN BLOOD BY AUTOMATED COUNT 94.2 12/01 Specimen Type: BLOOD No comment entered. Ordering Provider: TATO BARRAZA Report Released Date/Time : Dec 09, 2023 10:52 AM Reporting Lab: [place] [facility] [address] [place] [address] 8 Performin g Lab: [place] [facility] [address] [place] [address] 8 [facility] CBC MONOCYTES/1 00 LEUKOCYTES IN BLOOD BY AUTOMATED COUNT 1.6 12/01 Specimen Type: BLOOD No comment entered. Ordering Provider: TATO BARRAZA Report Released Date/Time : Dec 09, 2023 10:52 AM Reporting Lab: [place] [facility] [address] [place] [address] 8 Performin g Lab: [place] [facility] [address] [place] [address] 8 [facility] CBC NEUTROPHILS /100 LEUKOCYTES IN BLOOD BY AUTOMATED COUNT 3.5 12/01 Specimen Type: BLOOD No comment entered. Ordering Provider: TATO BARRAZA Report Released Date/Time : Dec 09, 2023 10:52 AM Reporting Lab: [place] [facility] [address] [place] [address] 8 Performin g Lab: [place] [facility] [address] [place] [address] 8 [facility] CBC EOSINOPHILS /100 LEUKOCYTES IN BLOOD BY AUTOMATED COUNT 0.5 12/01 Specimen Type: BLOOD No comment entered. Ordering Provider: TATO BARRAZA Report Released Date/Time : Dec 09, 2023 10:52 AM Reporting Lab: [place] [facility] [address] [place] [address] 8 Performin g Lab: [place] [facility] [address] [place] [address] 8 [facility] CBC BASOPHILS/1 00 LEUKOCYTES IN BLOOD BY AUTOMATED COUNT 0.1 12/01 Specimen Type: BLOOD No comment entered. Ordering Provider: TATO BARRAZA Report Released Date/Time : Dec 09, 2023 10:52 AM Reporting Lab: [place] [facility] [address] [place] [address] 8 Performin g Lab: [place] [facility] [address] [place] [address] 8 [facility] CBC LYMPHOCYTES [#/VOLUME] IN BLOOD BY AUTOMATED COUNT 56.46 10*3/uL 0.77 - 4.50 12/01 H Specimen Type: BLOOD No comment entered. Ordering Provider: TATO BARRAZA Report Released Date/Time : Dec 09, 2023 10:52 AM Reporting Lab: [place] [facility] [address] [place] [address] 8 Performin g Lab: [place] [facility] [address] [place] [address] 8 [facility] CBC MONOCYTES [#/VOLUME] IN BLOOD BY AUTOMATED COUNT 0.97 10*3/uL 0.19 - 0.8 12/01 H Specimen Type: BLOOD No comment entered. Ordering Provider: TATO BARRAZA Report Released Date/Time : Dec 09, 2023 10:52 AM Reporting Lab: [place] [facility] [address] [place] [address] 8 Performin g Lab: [place] [facility] [address] [place] [address] 8 [facility] CBC NEUTROPHILS [#/VOLUME] IN BLOOD BY AUTOMATED COUNT 2.12 10*3/uL 2.10 - 8.00 12/01 Specimen Type: BLOOD No comment entered. Ordering Provider: TATO BARRAZA Report Released Date/Time : Dec 09, 2023 10:52 AM Reporting Lab: [place] [facility] [address] [place] [address] 8 Performin g Lab: [place] [facility] [address] [place] [address] 8 [facility] CBC EOSINOPHILS [#/VOLUME] IN BLOOD BY AUTOMATED COUNT 0.27 10*3/uL 0.00 - 0.60 12/01 Specimen Type: BLOOD No comment entered. Ordering Provider: TATO BARRAZA Report Released Date/Time : Dec 09, 2023 10:52 AM Reporting Lab: [place] [facility] [address] [place] [address] 8 Performin g Lab: [place] [facility] [address] [place] [address] 8 [facility] CBC BASOPHILS [#/VOLUME] IN BLOOD BY AUTOMATED COUNT 0.04 10*3/uL 0.00 - 0.20 12/01 Specimen Type: BLOOD No comment entered. Ordering Provider: TATO BARRAZA Report Released Date/Time : Dec 09, 2023 10:52 AM Reporting Lab: [place] [facility] [address] [place] [address] 8 Performin g Lab: [place] [facility] [address] [place] [address] 8 [facility] CBC VARIANT LYMPHOCYTES /100 LEUKOCYTES IN BLOOD BY MANUAL COUNT 24 12/01 Specimen Type: BLOOD No comment entered. Ordering Provider: ATTO BARRAZA Report Released Date/Time : Dec 09, 2023 10:52 AM Reporting Lab: [place] [facility] [address] [place] [address] 8 Performin g Lab: [place] [facility] [address] [place] [address] 8 [facility] CBC PLATELETS RETICULATED /100 PLATELETS IN BLOOD BY AUTOMATED COUNT 1.8 1.0 - 7.0 06/11 /2025 Specimen Type: BLOOD No comment entered. Ordering Provider: TATO BARRAZA Report Released Date/Time : Dec 09, 2023 10:52 AM Reporting Lab: [place] [facility] [address] [place] [address] 8 Performin g Lab: [place] [facility] [address] [place] [address] 8 [facility] CBC IMMATURE GRANULOCYTE S/100 LEUKOCYTES IN BLOOD BY AUTOMATED COUNT 0.1 12/01 Specimen Type: BLOOD No comment entered. Ordering Provider: TATO BARRAZA Report Released Date/Time : Dec 09, 2023 10:52 AM Reporting Lab: [place] [facility] [address] [place] [address] 8 Performin g Lab: [place] [facility] [address] [place] [address] 8 [facility] CBC IMMATURE GRANULOCYTE S [#/VOLUME] IN BLOOD BY AUTOMATED COUNT 0.07 10*3/uL 0.00 - 0.05 12/01 H Specimen Type: BLOOD No comment entered. Ordering Provider: TATO BARRAZA Report Released Date/Time : Dec 09, 2023 10:52 AM Reporting Lab: [place] [facility] [address] [place] [address] 8 Performin g Lab: [place] [facility] [address] [place] [address] 8 [facility] CBC MANUAL DIFFERENTIA L COMMENT [INTERPRETA TION] IN BLOOD NARRATIVE NO 12/01 Specimen Type: BLOOD No comment entered. Ordering Provider: TATO BARRAZA Report Released Date/Time : Dec 09, 2023 10:52 AM Reporting Lab: [place] [facility] [address] [place] [address] 8 Performin g Lab: [place] [facility] [address] [place] [address] 8 [facility] CBC MANUAL DIFFERENTIA L PERFORMED [PRESENCE] IN BLOOD 0.00 10*3/uL 0.00 12/01 Specimen Type: BLOOD No comment entered. Ordering Provider: TATO BARRAZA Report Released Date/Time : Dec 09, 2023 10:52 AM Reporting Lab: [place] [facility] [address] [place] [address] 8 Performin g Lab: [place] [facility] [address] [place] [address] 8 [facility] CBC MONOCYTES [#/VOLUME] IN BLOOD BY MANUAL COUNT 0.60 10*3/uL 0.19 - 0.8 12/01 Specimen Type: BLOOD No comment entered. Ordering Provider: TATO BARRAZA Report Released Date/Time : Dec 09, 2023 10:52 AM Reporting Lab: [place] [facility] [address] [place] [address] 8 Performin g Lab: [place] [facility] [address] [place] [address] 8 [facility] CBC LYMPHOCYTES [#/VOLUME] IN BLOOD BY MANUAL COUNT 41.93 10*3/uL 0.77 - 4.50 12/01 H Specimen Type: BLOOD No comment entered. Ordering Provider: TATO BARRAZA Report Released Date/Time : Dec 09, 2023 10:52 AM Reporting Lab: [place] [facility] [address] [place] [address] 8 Performin g Lab: [place] [facility] [address] [place] [address] 8 [facility] CBC NEUTROPHILS [#/VOLUME] IN BLOOD BY MANUAL COUNT 3.00 10*3/uL 2.10 - 8.00 12/01 Specimen Type: BLOOD No comment entered. Ordering Provider: TATO BARRAZA Report Released Date/Time : Dec 09, 2023 10:52 AM Reporting Lab: [place] [facility] [address] [place] [address] 8 Performin g Lab: [place] [facility] [address] [place] [address] 8 [facility] FERRITIN FERRITIN [MASS/VOLUM E] IN SERUM OR PLASMA 228 ng/mL 22 - 275 09/13 Specimen Type: SERUM No comment entered. Ordering Provider: RADHA PINK Report Released Date/Time : Jun 07, 2024 01:24 PM Reporting Lab: [place] [facility] [address] [place] [address] 8 Performin g Lab: [place] [facility] [address] [place] [address] 8 [facility] FOLATE (PB) FOLATE [MASS/VOLUM E] IN SERUM OR PLASMA >20.0ng/m L 7 - 20 09/13 H Specimen Type: SERUM No comment entered. Ordering Provider: RADHA PINK Report Released Date/Time : Jun 07, 2024 01:24 PM Reporting Lab: [place] [facility] [address] [place] [address] 8 Performin g Lab: [place] [facility] [address] [place] [address] 8 [facility] IRON/TIBC PROFILE IRON BINDING CAPACITY [MASS/VOLUM E] IN SERUM OR PLASMA 218 ug/dL 09/13 Specimen Type: PLASMA No comment entered. Ordering Provider: RADHA PINK Report Released Date/Time : Jun 07, 2024 01:24 PM Reporting Lab: [place] [facility] [address] [place] [address] 8 Performin g Lab: [place] [facility] [address] [place] [address] 8 [facility] IRON/TIBC PROFILE TRANSFERRIN [MASS/VOLUM E] IN SERUM OR PLASMA 174 mg/dL 163 - 344 09/13 Specimen Type: PLASMA No comment entered. Ordering Provider: RADHA PINK Report Released Date/Time : Jun 07, 2024 01:24 PM Reporting Lab: [place] [facility] [address] [place] [address] 8 Performin g Lab: [place] [facility] [address] [place] [address] 8 [facility] IRON/TIBC PROFILE IRON SATURATION [MASS FRACTION] IN SERUM OR PLASMA 33 20 - 50 09/13 Specimen Type: PLASMA No comment entered. Ordering Provider: RADHA PINK Report Released Date/Time : Jun 07, 2024 01:24 PM Reporting Lab: [place] [facility] [address] [place] [address] 8 Performin g Lab: [place] [facility] [address] [place] [address] 8 [place] [facility] IRON/TIBC PROFILE IRON [MASS/VOLUM E] IN SERUM OR PLASMA 71 ug/dL 65 - 175 09/13 Specimen Type: PLASMA No comment entered. Ordering Provider: RADHA PINK Report Released Date/Time : Jun 07, 2024 01:24 PM Reporting Lab: [place] [facility] [address] [place] [address] 8 Performin g Lab: [place] [facility] [address] [place] [address] 8 [facility] B12 COBALAMIN (VITAMIN B12) [MASS/VOLUM E] IN SERUM OR PLASMA 394 pg/mL 213 - 816 09/13 Specimen Type: SERUM No comment entered. Ordering Provider: RADHA PINK Report Released Date/Time : Jun 07, 2024 01:24 PM Reporting Lab: [place] [facility] [address] [place] [address] 8 Performin g Lab: [place] [facility] [address] [place] [address] 8 [facility] Vital Signs Combined list of inpatient and outpatient Vital Signs from Department of Defense and Veterans Affairs, ranging from 12 months to all on record, depending upon the facility. Vital Sign Value Date Comments Source SYSTOLIC BLOOD PRESSURE 101 12/22/2024 10:59:00 [facility] DIASTOLIC BLOOD PRESSURE 46 12/22/2024 10:59:00 [facility] PULSE OXIMETRY 94 % 12/22/2024 10:59:00 [facility] WEIGHT 230.5 12/22/2024 10:59:00 [facility] BMI 32 kg/m2 12/22/2024 10:59:00 [facility] PAIN 0 12/22/2024 10:59:00 [facility] PULSE 74 12/22/2024 10:59:00 [facility] RESPIRATION 18 12/22/2024 10:59:00 [facility] SYSTOLIC BLOOD PRESSURE 119 08/25/2024 11:23:00 [facility] DIASTOLIC BLOOD PRESSURE 66 08/25/2024 11:23:00 [facility] PULSE OXIMETRY 93 08/25/2024 11:23:00 [facility] WEIGHT 226.9 08/25/2024 11:23:00 [facility] BMI 32 kg/m2 08/25/2024 11:23:00 [facility] HEIGHT 71.0 08/25/2024 11:23:00 [facility] PULSE 84 08/25/2024 11:23:00 [facility] RESPIRATION 18 08/25/2024 11:23:00 [facility] SYSTOLIC BLOOD PRESSURE 129 04/26/2024 15:00:00 [facility] DIASTOLIC BLOOD PRESSURE 65 04/26/2024 15:00:00 [facility] PULSE OXIMETRY 95 04/26/2024 15:00:00 [facility] WEIGHT 231.4 04/26/2024 15:00:00 [facility] BMI 32 kg/m2 04/26/2024 15:00:00 [facility] PAIN 0 04/26/2024 15:00:00 [facility] TEMPERATURE 97.8 04/26/2024 15:00:00 [facility] PULSE 68 04/26/2024 15:00:00 [facility] RESPIRATION 18 04/26/2024 15:00:00 [facility] Encounters Combined list of: 1) Encounters from Department of Veterans Affairs facilities going backup to the last 18 months, not all VA inpatient encounters are included; 2) Encounters from the Department of Defense facilities going backup to 280 months. Location Location Details Encounter Type Encounter Number Reason For Visit Attending Provider ADM Date DC Date Status Disposition Source [place] [facility] Outpatient Encounter [id number] TERESA MANRIQUE 08/20 [place] [facility] [place] [facility] Outpatient Encounter [id number] [id number] 09/07 [place] [facility] [place] [facility] Outpatient Encounter [id number] [id number] 10/05 [place] [facility] OFFICE O/P EST MOD 30 MIN [id number] [id number] Diagnos is: ICD-10- CM R10.9 Unspeci fied abdomin al pain CHRISTIWalter JAIR 10/07 [facility] CALL 5-10 MIN [id number] [id number] Diagnos is: ICD-10- CM R93.89 Abnorma l finding s on dx imaging of oth body structu res ANGELLA GUSTAFSON 10/08 [facility] Outpatient Encounter [id number] 10/08 [facility] ADDL 15 MIN [id number] [id number] Diagnos is: ICD-10- CM 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 diabete s mellitu s with unspeci fied complic ations JOESPHNupur W 10/09 [facility]OP EST MAY X REQ PHY/QHP 75167-9.65 [id number] Diagnos is: ICD-10- CM 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 ANDREA DANIELS M 10/09 [facility] Outpatient Encounter [id number] [id number] TOMHARI KirkpatrickAntonio 10/09 [facility] PHONE CALL 5-10 MIN [id number] [id number] Diagnos is: ICD-10- CM Z71.89 Other specifi ed clinical mental health counselor ing ANGELLA GUSTAFSON 10/16 [facility] Outpatient Encounter [id number] [id number] 10/21 [facility] Outpatient Encounter [id number] [id number] 10/21 [facility] Outpatient Encounter [id number] [id number] 1 11/05 [facility] [place] [facility] Outpatient Encounter [id number] [id number] 11/11 [facility] Encounter [id number] [id number] 11/12 [facility] Outpatient Encounter [id number] [id number] 11/19 [facility] Outpatient Encounter [id number] [id number] PRAVEENA BREWER M 11/[address] 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 Walter BARRAZA 12/08 [facility] FUNDUS PHOTOGRAPH Y W/I&R 18340-7.65 [id number] Diagnos is: ICD-10- CM Z13.5 Encount er for screeni ng for eye and ear disorde MAGDALENO Perez 12/08 [facility] MTMS BY PHARM ADDL 15 MIN [id number] [id number] Diagnos is: ICD-10- CM 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 diabete s mellitu s with unspeci fied complic atNupur Thurston W 12/08 [facility] [place] [facility] IMG RTA DETC/MNTR DS PHY/QHP 69056-5.65 [id number] Diagnos is: ICD-10- CM Z13.9 Encount er for screeni ng, unspeci fied MIGUEL RICO S 12/08 [place] [facility] FAC[facility] FEE [id number] [id number] Diagnos is: ICD-10- CM H90.3 Sensori neural hearing loss, MILAD Saldivar A 12/14 [facility] [place] [facility] HEARING AID REPAIR/MOD IFYING [id number] [id number] Diagnos is: ICD-10- CM H90.3 Sensori neural hearing loss, MILAD Saldivar A 12/14 [place] [facility] Outpatient Encounter [id number] [id number] 12/21 [facility] Outpatient Encounter [id number] [id number] 12/21 [facility] Outpatient Encounter [id number] [id number] 12/21 [facility] [place] [facility] Outpatient Encounter [id number] [id number] JASON MUNSON A 12/[address] [place] [facility] Outpatient Encounter [id number] [id number] 12/22 [facility] Outpatient Encounter [id number] [id number] 01/07 [facility] Outpatient Encounter [id number] [id number] 01/07 [facility] Outpatient Encounter [id number] [id number] 01/07 [facility] FAC[facility] FEE [id number] [id number] Diagnos is: ICD-10- CM Z46.1 Encount er for fitting and adjustm ent of hearing aid MILAD CHOUDHURY A 01/13 [facility] HEARING AID CHECK BOTH EARS [id number] [id number] Diagnos is: ICD-10- CM Z46.1 Encount er for fitting and adjustm ent of hearing aid MILAD CHOUDHURY A 01/13 [facility] HC PRO PHONE CALL 5-10 MIN [id number] [id number] Diagnos is: ICD-10- CM R93.89 Abnorma l finding s on dx imaging of oth body structu res ANGELLA GUSTAFSON 01/18 [facility] Outpatient Encounter [id number] [id number] LOUISE LOVING 01/19 [facility] Outpatient Encounter [id number] [id number] 02/05 [facility] Outpatient Encounter [id number] [id number] 02/08 [facility] Outpatient Encounter [id number] [id number] 02/16 [facility] [place] [facility] Outpatient Encounter [id number] [id number] 02/16 [place] [facility] [place] [facility] Outpatient Encounter [id number] [id number] 02/[address] [facility] Outpatient Encounter [id number] [id number] 02/23 [facility] Outpatient Encounter [id number] [id number] 02/24 [facility] [place] [facility] Outpatient Encounter [id number] [id number] 02/[address] [facility] Outpatient Encounter [id number] [id number] 03/04 [facility] Outpatient Encounter [id number] [id number] 03/17 [facility] [place] [facility] Outpatient Encounter [id number] [id number] 03/19 [place] [facility] MTMS BY PHARM ADDL 15 MIN [id number] [id number] Diagnos is: ICD-10- CM E78.5 Hyperli pidemia , unspeci fiNupur Love 03/19 [facility] Outpatient Encounter [id number] [id number] 03/23 [facility] Outpatient Encounter [id number] [id number] TREVER LIRIANO N 03/28 [facility] Outpatient Encounter [id number] [id number] 03/31 [facility] [place] [facility] Outpatient Encounter [id number] [id number] 03/31 [place] [facility] Outpatient Encounter [id number] GLORIA CONSTANTINO 04/06 [facility] Outpatient Encounter [id number] [id number] 04/08 [facility] Outpatient Encounter [id number] [id number] 04/08 [facility] [place] [facility] Outpatient Encounter [id number] [id number] 04/12 [place] [facility] [place] [facility] Outpatient Encounter [id number] [id number] 04/[address] [facility] Outpatient Encounter [id number] [id number] 04/23 [facility] MTMS BY PHARM ADDL 15 MIN [id number] [id number] Diagnos is: ICD-10- CM E78.5 Hyperli pidemia , unspeci Nupur Pereyra 04/26 [facility] OFFICE O/P EST MOD 30 MIN [id number] [id number] Diagnos is: ICD-10- CM I50.9 Heart failure , unspeci Walter Pino 04/26 [facility] [place] [facility] Outpatient Encounter [id number] [id number] 05/[address] [facility] Outpatient Encounter [id number] [id number] 06/04 [facility] MTMS BY PHARM ADDL 15 MIN [id number] [id number] Diagnos is: ICD-10- CM 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 diabete s mellitu s with unspeci fied complic atNupur Thurston W 06/07 [facility] Outpatient Encounter [id number] [id number] 06/07 [facility] Outpatient Encounter [id number] [id number] 06/08 [facility] Outpatient Encounter [id number] [id number] BARRETT RUSH 07/05 [facility] Outpatient Encounter [id number] [id number] 07/07 [facility] PH1 ASSMT&MGMT NQHP 5-10 [id number] [id number] Diagnos is: ICD-10- CM R09.81 Nasal congest ion ANGELLA GUSTAFSON R 07/13 [facility] [place] [facility] Outpatient Encounter [id number] [id number] 08/[address] [facility] Outpatient Encounter [id number] [id number] 08/12 [facility] [place] [facility] Outpatient Encounter [id number] [id number] CASTRO,K PAULA A 08/16 [place] [facility] OFFICE O/P EST MOD 30 MIN [id number] [id number] Diagnos is: ICD-10- CM 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 diabete s mellitu s with unspeci fied complic ations Walter BARRAZA 08/25 [facility] Outpatient Encounter [id number] [id number] 08/25 [facility] Outpatient Encounter [id number] [id number] 09/08 [facility] Outpatient Encounter [id number] [id number] 09/[address] 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 Outpatient Encounter [id number] [id number] 09/28 [facility] Outpatient Encounter [id number] [id number] 1 10/06 [facility] Outpatient Encounter [id number] [id number] 10/13 [facility] Outpatient Encounter [id number] [id number] 10/22 [facility] Outpatient Encounter [id number] [id number] 10/25 [facility] Outpatient Encounter [id number] [id number] 10/26 [facility] TELEHEALTH FACILITY FEE [id number] [id number] Diagnos is: ICD-10- CM Z46.1 Encount er for fitting and adjustm ent of hearing aid MILAD CHOUDHURY A 10/27 [facility] HEARING AID REPAIR/MOD IFYING [id number] [id number] Diagnos is: ICD-10- CM Z46.1 Encount er for fitting and adjustm ent of hearing aid MILAD CHOUDHURY A 10/27 [facility] Outpatient Encounter [id number] [id number] 1 11/04 [facility] Outpatient Encounter [id number] [id number] 11/12 [facility] Outpatient Encounter [id number] [id number] 11/23 [facility] Outpatient Encounter [id number] [id number] 12/04 [facility] Outpatient Encounter [id number] [id number] LUISITO HARDEN 12/06 [facility] Outpatient Encounter [id number] [id number] GLORIA CONSTANTINO 12/06 [facility] Outpatient Encounter [id number] [id number] 12/08 [facility] Outpatient Encounter [id number] [id number] 12/11 [facility] Outpatient Encounter [id number] [id number] 12/11 DONNALivier ANNA [facility] [place] [facility] Outpatient Encounter [id number] [id number] 12/15 [place] [facility] Outpatient Encounter [id number] [id number] BARRETT RUSH 12/20 [facility] Outpatient Encounter [id number] [id number] 12/22 [facility] OFFICE O/P EST MOD 30 MIN [id number] Diagnos is: ICD-10- CM 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 diabete s mellitu s with unspeci fied complic ations Walter BARRAZA 12/22 [facility] En[facility] [id number] [id number] TANI ARROYO 12/27 [facility] Outpatient Encounter [id number] [id number] MARY HARRIS 12[facility] Outpatient Encounter [id number] [id number] BARRETT RUSH 12/29 [facility] Social History Combined list of available smoking, tobacco, and other social history from Department of Defense and Veterans Affairs facilities. Social History Type Response Date Comment Sourc e Tobacco smoking status NHIS VA-TOBACCO USE FORMER CIGARETTES 08/25/2024 [facility] History of tobacco use VA-TOBACCO NEVER USED OTHER TYPE 08/25/2024 [facility] History of tobacco use VA-TOBACCO FORMER USER 06/13/2023 [facility] History of tobacco use VA-TOBACCO FORMER USER 05/22/2022 [facility] History of tobacco use VA-TOBACCO NEVER USED 05/24/2021 [facility] History of tobacco use VA-TOBACCO FORMER USER 02/07/2020 [facility] History of tobacco use VA-TOBACCO FORMER USER 08/04/2018 [facility] History of tobacco use QUIT TOBACCO >7 Y EARS AGO 06/30/2017 [place] [facility] History of tobacco use QUIT TOBACCO >7 Y EARS AGO 09/17/2012 [facility] History of tobacco use CURRENT NON-TOBAC CO USER-HX OF USE 11/30/2004 [place] [facility] History of tobacco use CURRENT NON-TOBAC CO USER-HX OF USE 07/03/2004 [facility] History of tobacco use CURRENT NON-TOBAC CO USER-HX OF USE 09/01/2003 [facility] History of tobacco use CURRENT NON-TOBAC CO USER-HX OF USE 09/16/2002 [facility] Plan of Care List of future care activities from Department of Veterans Affairs facilities. Additional future care activities may be listed in the Assessment and Plan section. Date/Time Care Activity Care Activity Detail Facili ty 06/13/2025 AMBULATORY - MEDICINE AMBULATORY - MEDICI NE [facility]
[2024-12-30 21:42] VITALS: BP 150/68; PULSE 96; RESP 18; TEMP 36.8; O2SAT 97; BMI 32.9
--- OUTSIDE RECORDS SUMMARY | 2024-12-30 21:45 | XMS_ITS ---
Author Organization [facility] Address [address] [place] [address] Phone Care Team Providers Care Inspector Fabric Name Role Phone Paula Sandoval MD Primary Care Provider [phone] Active Problems Problem Noted Date Diagnosed Date [...] lobe of lung 03/29/2024 Lesion of right [place] kidney 03/29/2024 Acute hypoxic respiratory failure 03/29/2024 [...]
--- OUTSIDE RECORDS SUMMARY | 2024-12-30 21:45 | XMS_ITS | Encounter Summary ---
Author Organization [facility] Address [address] [place] [address] Care Team Providers Care Woodwork Salvage Inspector Name Role Phone Paula Sandoval MD Primary Care Provider + [phone] Reason for Visit * Reason Onset Date Comments 10/21/24 Willian Appt Needs Rescheduled 025 Encounter Details Date Type Department Care Team (Late st Contact Info) Description 09/23/2024 Telephone [facility] [address] [facility] [address] [place] [address] Lyndsey Dorsey, MARCELLO [address] [facility] [address], [address] [place] [address] 10/21/24 Willian Appt Needs Rescheduled Social [...] PM CDT Provider: Willian Phone: joe - [phone] MESSAGE 10/21/24 Willian appointment - pt unable to keep this appt due to having dialysis , , and Friday. Please make appt on non dialysis day. Would like appt from 10AM - 3PM please. Thank you. Susan Carpenter, [facility], Advanced PSR documented in this encounter Plan of Treatment Upcoming Encounters Date Type Department Care Team (Latest Contact Info) Description 01/03/2025 3:30 PM CDT Video Visit [facility] [place] [address] [address] Iqra Brito NP [address] [address] 01/17/2025 11:45 AM CDT Appointment [facility] [address] [address] 01/19/2025 3:00 PM CDT Office Visit [facility] [place] [address] [address] Iqra Brito NP [address] [address] 01/21/2025 11:00 AM CDT Office Visit [facility] [address] [facility] [address] [place] [address] Lyndsey Dorsey, AD TRAFFICKER [address] [facility] [address] [place] [address] 02/07/2025 2:00 PM CDT Hospital Encounter [facility] Endoscopy [address] [place] [address] Clinton Ascencio, DO [address] [facility] [address] [place] [address] 02/07/2025 2:00 PM CDT - 02/07/2025 2:20 PM CDT Surgery [facility] Endoscopy [address] [place] [address] Clinton Ascencio, DO [address] [address] ESOPHAGOGASTRODUODENOSCOPY 03/18/2025 11:30 AM CDT Office Visit [facility] Vascular Surgery [place] [id number] [address] Klarissa Flowers MD [address] [facility] [address] [place] [address] Scheduled Procedures Name Priority Associated Diagnoses Date/Ti me ESOPHAGOGASTRODUODENOSCOPY gastric ulcer 02/07/2025 2:00 PM CDT documented as of this encounter Visit Diagnoses Not on filedocumented in this encounter Care Teams Woodwork Salvage Inspector Relationship Specialty Start Date End Date Paula Sandoval MD [address] [place] [address] PCP - General Family Practice 10/18/24 documented as of this encounter
--- OUTSIDE RECORDS SUMMARY | 2024-12-30 21:46 | XMS_ITS | Data Portability ---
Author Organization PETER Hayes [facility], [place], [facility] Address [address] [facility] [address] [place] [address] Assessment Encounter Date Assessment Date Assessment LastModified [...] CoV 2 RNA, QL, nasopharynx 2022 023 [facility] ([facility]), [address] [facility], [place], [address], 3 13:21:58 SARS CoV 2 RNA (COVID-19), QL, sack sorter-PCR, respiratory specimen 2022 023 [facility], [address] [place] [address], [facility] [address] [place], [address], 08:30:00 Referral None recorded. Procedures None recorded. Surgeries None recorded. Imaging None recorded. Medication Orders doxycycline hyclate 100 mg capsule 2024 025 [facility], [address], [place], [address], 5 13:29:23 montelukast 10 mg tablet 2023 024 [facility], [address], [place], [address], 4 13:02:33 ondansetron HCl 4 mg tablet [address] [facility], [address], [place], [address], 4 12:17:46 Paxlovid 300 mg (150 mg x 2)-100 mg tablets in a dose pack [address] [facility], [address], [place], [address], 12:17:59 Patient TargetsNo targets recorded. Patient Instructions Encounter Date Encounter Id Patient Instructions Last Modified By Organization Details Last Modified Time 03/26/2024 [id number] Call or return for questions or concerns. Not available 03/26/2024 13:02:26 07/03/2024 [id number] Call or return for questions or concerns. [...] the [employer] websi te: www.[employer] uestD iagno [employer]ics .com/ Covid 19. For [...] on COVID -19 vacci elly. Not Available [facility] [address], [place], [address], 03/19/2023 08:30:00 03/17/20 23 03/17/2023 SARS CoV 2 RNA, QL, nasop haryn x COVID negati ve Not Available [facility] ([facility]) [address] [place], [address], 03/17/2023 12:49:58 Result Notes None recorded. Problems Name Problem SNOMED Code Status Onset Date Resolution Date Notes Provider Name and Address Organization Details Recorded Time Open heart surgery 5489798 Active 2020 Open heart 4-bypass [place] [address] Jean; 05/10/2021 2:25PM by Bernadette Bonilla, RN, Office Visit; Promoted; acuity set as *; Not Available [facility] 3 03:16:24 Cardiac pacemaker in situ 014989624 Active 2020 [facility]; Recorded 05/10/2021 2:25PM by Bernadette Bonilla RN, Office Visit; Promoted; acuity set as *; Not Available [facility] 3 03:16:27 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 Mann; 05/10/2021 2:25PM by Bernadette Bonilla, RN, Office Visit; Promoted; acuity set as *; Not Available [facility] 3 03:16:30 Benign essential hypertens ion 3319768 Active 2020 Hypertensi on; 05/10/2021 2:25PM by Bernadette Bonilla RN, Office Visit; Promoted; acuity set as *; Not Available [facility] 3 03:16:35 Type 2 diabetes mellitus without complicat ion 219319088 Active 2020 Non-Insuli n Dependent Diabetes Mellitus; pt test QID; 05/10/2021 2:25PM by Bernadette Bonilla RN, Office Visit; Promoted; acuity set as *; Not Available [facility] 3 03:16:37 Problem Notes None recorded. Medical Equipment None Reported. Allergies Allergen ID Allergen Name Allergen Category Reaction Reaction Severity Criticality Documentation Date Start Date Code Code System Note Provider Name and Address Organization Details Recorded Time 83352 iodine medicatio n Not available Not available Not available 01/18/2023 5933 RxNorm Comme nt: Recor ded 05/10 2:25P M by Ryan Bonilla RN, Offic e Visit ; Promo emmanuel; Signi kalin ce: *; Reaso n: Drug aller gy; ; Not Available [facility] 3 02:24:23 81518 Uloric medicatio n hives Not available Not available 01/18/2023 80547 6 RxNorm React ion: Hives ; Comme nt: Recor ded 05/10 2:25P M by Ryan Bonilla RN, Offic e Visit ; Promo emmanuel; Signi ficloren ce: *; Reaso n: Drug aller gy; ; Not Available [facility] 3 02:24:23 76840 allopurin ol medicatio n abdominal pain Not available Not available 01/18/2023 519 RxNorm React ion: Abdom inal pain, Hives ; Comme nt: Recor ded 05/10 2:25P M by Ryan Bonilla RN, Offic e Visit ; Promo emmanuel; Signi kalin ce: *; Reaso n: Drug aller gy; ; Not Available [facility] 3 02:24:23 02204 Flomax medicatio n other Not available Not available 01/18/2023 99402 3 RxNorm React ion: Blood disor luz marina; Comme nt: Recor ded 05/10 2:25P M by Ryan Bonilla RN, Offic e Visit ; Promo emmanuel; Signi ficloren ce: *; Reaso n: Drug aller gy; ; Not Available [facility] 3 02:24:23 08461 Levaquin medicatio n hallucina tions Not available Not available 01/18/2023 07495 2 RxNorm React ion: demen tia, confu garfield, hallu cinat ions, agita tion; Comme nt: Recor ded 05/10 2:25P M by Ryan Bonilla RN, Offic e Visit ; Promo emamnuel; Signi fican ce: *; Reaso n: Drug aller gy; ; Not Available [facility] 3 02:24:23 56879 Seroquel medicatio n hallucina tions Not available Not available 01/18/2023 21993 RxNorm React ion: hallu cinat ions; Comme nt: Recor ded 05/10 2:25P M by Ryan Bonilla RN, Offic e Visit ; Promo emmaunel; Signsusan gagnon ce: *; Reaso n: Drug aller gy; ; Not Available [facility] 3 02:24:23 Medications Name Sig Start Date [...] minutes x 3 prn 2019 active VO JR/[facility] ; Recorded 01/20/20 21 8:38AM by [...] by Noah garduno (Authori zed through Alejandro Maicas MD), Refill Request; Refill Quantity : 270; [...] Updated DateTime 5 180.34 cm 32.1 kg/m2 053929. 05 g 98.4 [degF] 77 /min 93 % 93 % 140/62 mm[Hg] Sherin Jama [facility] 5 12:50:20 Date Recorded Body height Body mass index (BMI) Body weight Oxygen saturation Oxygen saturation in Arterial blood by Pulse oximetry Heart rate Respiratory rate Body temperature Provider Name and Address Organization Details Last Updated DateTime 3 177.8 cm 35.7 kg/m2 294795. 5 g 98 % 98 % 94 /min 20 /min 98.2 [degF] SAILAJA ROSALES [facility] [address] [place], [address], [facility] 3 12:51:23 Date Recorded Body weight Body mass index (BMI) Body height Body temperature Oxygen saturation Oxygen saturation in Arterial blood by Pulse oximetry Heart rate Systolic And Diastolic Provider Name and Address Organization Details Last Updated DateTime 4 524617. 13 g 34.2 kg/m2 180.34 cm 98 [degF] 95 % 95 % 81 /min 132/58 mm[Hg] Sherin Jama [facility], [facility] 4 12:22:13 Social History None recorded. Functional Status None recorded. Mental Status None recorded. Family History Nothing Reported. Medical History No medical history recorded. Immunizations Vaccine Type Date Status Note Provider Nam e and Address Organization Details Recorded Time Td (adult), 2 Lf tetanus toxoid, preservative free, adsorbed 7 completed Not Available [facility] 01/18/2023 02:50:56 Influenza, split virus, trivalent, preservative 1 completed Not Available [facility] 01/18/2023 02:50:56 pneumococcal, unspecified formulation 1 completed Not Available [facility] 01/18/2023 02:50:56 zoster, unspecified formulation 1 completed Not Available [facility] 01/18/2023 02:50:56 Influenza, split virus, trivalent, preservative 1 completed Not Available [facility] 01/18/2023 02:50:56 pneumococcal polysaccharide PPV23 1 completed Not Available [facility] 01/18/2023 02:50:56 COVID-19, mRNA, LNP-S, PF, 30 mcg/0.3 mL dose 1 completed Not Available [facility] 01/18/2023 02:50:57 COVID-19, mRNA, LNP-S, PF, 30 mcg/0.3 mL dose 1 completed Not Available [facility] 01/18/2023 02:50:57 Past Encounters Encounter ID Performer Location Encounter Start Date Encounter Closed Date Diagnosis/Indication Diagnosis SNOMED-CT Code Diagnosis ICD10 Code Diagnosis Note [id number] ALL [facility]ER [facility] ([facility]) [address] [place] [phone] 03/17/2023 12:05:05 03/18/2023 14:42:14 Cough 05805743 R05.9 COVID-19 398387081 U07.1 Nausea 589498569 R11.0 [id number] ALL [place]AVA [facility] ([facility]) [address] [place] [address] 03/26/2024 11:40:55 03/26/2024 13:06:31 Seasonal allergic rhinitis 125615328 J30.2 [id number] ALL [place] [facility] ([facility]) [address] [place] [address] 07/03/2024 12:08:59 07/03/2024 13:37:45 Acute bacterial bronchitis 685953113 J20.9 End stage renal failure on dialysis 465347183 N18.[address] [place] out of [place] [...] [employer] (MEDICARE SUPPLEMENT) Valente Renae [id number] Valente Renae 07/03/2024 1 [place]ICARE [place]: [place] Valente Renae [id number] Valente Renae 07/03/2024 [facility] - [place] A - [facility] (MEDICARE) Valente Renae [id number] Valente Renae Notes Date Note Type Note [...] (positive at home)Notes:Afebrile. No nausea. ALL SHOEMAKER [address] [place] [address], [phone], [facility], [place] 03/17/2023 13:27:21 03/26/2024 text/html CoughReported bypatient.Quality:pr oductive Severity:moderate Duration:constant Onset/Timing:sudden Context:non-smoker Associated Symptoms:no fever; no chills; no throat clearing walk in ptPt has had a terrible cough for a week and a half. TONY CAMPOS [address], [address], [facility], [place] 03/26/2024 13:04:04 07/03/2024 text/html [facility] a [facility] and has 2 dialysis visits. TONY CAMPOS [facility] [address] [place], [address], [facility], [place] 07/03/2024 13:30:07
--- OUTSIDE RECORDS SUMMARY | 2024-12-30 21:46 | XMS_ITS | Clinical Summary ---
Author Organization [facility] Address [address] [facility] [address] [place] [address] Phone Care Team Providers Care Quarter Seamer Name Role Phone Paula Sandoval MD Primary Care Provider + [phone] Allergies Active Allergy Reactions Criticality Noted Date [...] Constipation. Active fluticasone propionate (FLONASE) 50 mcg/spray [place], Suspension nasal inhaler Administer 1 [place] in each nostril 2 times daily. Active [...] mg tabletIndicatio ns:ESRD (end stage renal disease) ([facility]/HCC) Take 1 Tablet by mouth every 4 [...] lobe of lung 03/29/2024 Lesion of right [place] kidney 03/29/2024 Acute hypoxic respiratory failure 03/29/2024 Anemia 03/29/2024 Thrombocytopenia 03/29/2024 Impaired mobility 02/02/2021 CLL (chronic lymphocytic leukemia) 02/02/2021 History of COVID-19 02/02/2021 Generalized muscle weakness 01/30/2021 Acute cystitis without hematuria 01/30/2021 Stage 4 chronic kidney disease 11/05/2019 Chronic lymphocytic leukemia 11/05/2019 Encounters Date Type Department Care Team Description Orders Only [facility]ology - [place] [address] [facility] [address] [place] [address] Clinton Ascencio, DO Gastric ulcer with hemorrhage, unspecified chronicity (Primary Dx) 5 12:00 PM CDT Office Visit [facility] Hematology [place] [address] [facility] 2 [place] [address] Umm Dotson, CLL (chronic lymphocytic leukemia) ([facility]/HCC) (Primary Dx) 5 Orders Only [facility] Hematology [place] [address] [facility] 2 [place] [address] Umm Dotson, CLL (chronic lymphocytic leukemia) ([facility]/HCC) (Primary Dx) 5 Orders Only [facility] Hematology [place] [address] [facility] 2 [place] [phone] Umm Dotson, CLL (chronic lymphocytic leukemia) ([facility]/HCC) (Primary Dx) 5 1:45 PM CDT Office Visit [facility] Vascular Surgery [address] [phone] Klarissa Flowers MD ESRD (end stage renal disease) ([facility]) (Primary Dx); S/P arteriovenous (AV) graft placement 5 Telephone [facility] Vascular Surgery [address] [phone] Klarissa Flowers MD Question 5 Orders Only [facility] HIM [address] [place] [address] Provider, Abstract 5 10:50 AM CDT Anesthesia Event [facility] Endoscopy [address] [place] [address] Tariq Ruggiero MD Edwards, Cary Dawn, RUBIN 5 8:20 AM CDT - 5 8:40 AM CDT Surgery [facility] Endoscopy [address] [place] [address] Clinton Ascencio, DO ESOPHAGOGASTRODUODENOSCOPY 5 External Device Data STL ABSTRACTION Provider, Abstract 5 Travel 5 12:47 AM CDT - 5 8:00 PM CDT Hospital Encounter [facility] 3D Medical Telemetry [address] [place] [phone] Gema Iniguez, MD More Weiss, MD Francisco Hurst, MD Pita Birmingham, MD Jason Dominguez, Ruperto Junior MD Severe sepsis with septic shock (CMS/HCC) Discharge Disposition: Home or Self Care 5 7:30 AM CDT Anesthesia Event [facility] Operating Room [address] [place] [phone] Jeffry Walker MD 5 7:20 AM CDT - 5 9:09 AM CDT Surgery [facility] Operating Room [address] [place] [phone] Klarissa Flowers MD ARTERIOVENOUS GRAFT INSERTION 5 5:30 AM CDT - 5 12:05 PM CDT Hospital Encounter [facility] 3J Pre-Op [address] [place] [phone] Klarissa Flowers MD End stage renal disease (CMS/HCC) Discharge Disposition: Home or Self Care 5 Prep for Surgery [facility] Vascular Surgery [place] [address] [place] [phone] Klarissa Flowers MD ESRD (end stage renal disease) (CMS/HCC) (Primary Dx) 5 Telephone [facility] Vascular Surgery [address] [phone] Klarissa Flowers MD Surgery Talk 5 Telephone [facility] V[facility] Surgery [address] [phone] Klarissa Flowers MD Erroneous encounter-disregard 5 Orders Only [facility] Vascular Surgery [address] [phone] Klarissa Flowers MD ESRD (end stage renal disease) ([facility]/HCC) (Primary Dx); Encounter for pre-operative examination; Abnormal coagulation profile 5 Telephone [facility] Vascular [address] [phone] Klarissa Flowers MD Appointment Notification 5 12:30 PM CDT Office Visit [facility] Vascular Surgery [address] [phone] Klarissa Flowers MD ESRD (end stage renal disease) (CMS/HCC) (Primary Dx); Dilated cardiomyopathy ([facility]); Type 2 diabetes mellitus with stage 4 chronic kidney disease, with long-term current use of insulin ([facility]); Acute combined systolic and diastolic congestive heart failure ([facility]/HCC); Coronary artery disease involving [place] coronary artery of [place] heart without angina pectoris 5 11:00 AM CDT Ancillary Procedure [facility] [phone] Klarissa Flowers MD Benign hypertension with ESRD (end-stage renal disease) ([facility]/HCC) 5 Telephone [facility] Vascular Surgery [address] [phone] Klarissa Flowers MD Appointment Verification 5 Telephone [facility] V[facility] Surgery [address] [phone] Klarissa Folwers MD Question 5 Telephone [place] [address] [place] [phone] Sotero Alejandro MD Follow Up; Question; Michelle returning a call 5 Telephone [place] [address] [place] [phone] Sotero Alejandro MD Information; Follow Up 5 11:15 AM CDT Procedure visit [place] [address] [place] [phone] Sotero Alejandro MD Chronic combined systolic and diastolic heart failure (CMS/HCC) (Primary Dx); SSS (sick sinus syndrome) (CMS/HCC) 5 11:15 AM CDT Office Visit [place] [address] [place] [phone] Sotero Alejandro MD SSS (sick sinus syndrome) (CMS/HCC) (Primary Dx) 5 Abstract [place] [address] [place] [phone] Scanning, Provider 5 Orders Only [place] [address] [place] [phone] Sotero Alejandro MD Chronic combined systolic and diastolic heart failure (CMS/HCC) (Primary Dx); SSS (sick sinus syndrome) (CMS/HCC) 5 External Device Data STL ABSTRACTION Provider, Abstract 5 Telephone [place] [address] [place] [phone] Lyndsey Dorsey, MARCELLO Results (NM stress test); requesting sooner appt; Chest Pain; Shortness of Breath from Last 3 Months Immunizations Immunization Administration Dates Next Due (ADACEL/BOOSTRIX)(10 YR UP) TDAP VACCINE, 0.5ML, IM 12/20/2020 (HEPLISAV-B)(18 YR UP) HEPAT ITIS B VACCINE CPG-ADJUVANTED (HEPB-CPG) 2-4 DOSE, IM 04/29/2024 (PFIZER)(12 YR UP) COVID-19 VACCINE - EMERGENCY USE AUTHORIZATION, MRNA, [id number]) 30 MCG/0.3 ML IM SUSP 08/18/2020,07/24/2020,06/23/2020 (PNEUMOVAX [...] Description 01/03/2025 3:30 PM CDT Video Visit [facility] Cancer and Hematology [place] [address] [phone] Iqra Brito NP [address] [phone] 01/17/2025 11:45 AM CDT Appointment [facility] Keron [facility] Laboratory Services [address] [phone] 01/19/2025 3:00 PM CDT Office Visit [facility] Hematology [place] [address] [phone] Iqra Brito NP [address] [phone] 01/21/2025 11:00 AM CDT Office Visit [facility] [address] [place] [phone] Lyndsey Dorsey, 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 [address] Clinton Ascencio, DO [address] [facility] [address] [place] [phone] 02/07/2025 2:00 PM CDT - 02/07/2025 2:20 PM CDT Surgery [facility] Endoscopy [address] [place] [phone] Clinton Ascencio, DO [address] [phone] ESOPHAGOGASTRODUODENOSCOPY 03/18/2025 11:30 AM CDT Office Visit [facility] Vascular Surgery [place] [address] [facility] [address] [place] [address] Klarissa Flowers MD [address] [facility] [address] [place] [address] Scheduled Procedures Name Priority Associated Diagnoses Date/Ti me ESOPHAGOGASTRODUODENOSCOPY gastric ulcer 02/07/2025 2:00 PM CDT Health Maintenance Due Date Last Done Comments DIABETES ANNUAL FOOT EXAM 1963 Traditional Medicare (ACO) A nnual Wellness Visit 1964 RSV VACCINE (60+ or ) (1 - [...] 02/22, 03/07/2021 Medical Devices Implanted Type Area Guest Specialist Device Identifier Shelf Expiration Date Model / Serial / Lot Cath Dialysis Glidepath 14.5fr 23cm [facility] [id number] - [id number] Implanted:Qty: 1 on 04/01/2024 by Kim Flowers MD at [facility] Catheter Right: Chest BARD NUVIA VASC [id number] 09/20/2025 [id number] / / [id number] Clip Ligating Horizon Red [id number] - Csc - [id number] Implanted:Qty: 1 on 11/29/2024 by Klarissa Flowers MD at [facility] Clip Right: Arm [employer] [id number] 08/06/2029 [id number] / / [id number] Clip Ligating Horizon Med Ti 241824 - Csc - [id number] Implanted:Qty: 1 on 11/29/2024 by Klarissa Flowers MD at [facility] Clip Right: Arm TELE[employer]LEX- WECK CLOSURE SYS [id number] 05/30/2029 [id number] / / [id number] Graft Vasc Propaten [id number] - [id number] Implanted:Qty: 1 on 11/29/2024 by Klarissa Flowers MD at [facility] Graft Right: Arm [employer] [id number] 07/19/2027 [id number] / [id number] / Agent Hemostat Surgicel 2x3in - [id number] Implanted:Qty: 1 on 11/29/2024 by Klarissa Flowers MD at [facility] Hemostatic Right: Arm [employer] [id number] 09/20/20281952S / / [id number] Pacemaker Procedures Procedure Name [...] CDT PROCEDURE PHOTOGRAPHS 12/01/2024 10:48 AM CDT ME ANESTHESIA BLOCK PB PLACEHOLDER CHARGE Routine 11/29/2024 8:07 AM CDT ME CRTJ ARVEN FSTL XCP DIR ARVEN YESSENIA NONAUTOG GRF 11/29/2024 7:20 AM CDT [...] hypertension with ESRD (end-stage renal disease) (CMS/HCC) ME PROGRAM EVAL IMPLANTABLE IN PERSN DUAL LD PACER Routine 10/26/2024 11:10 AM CDT Chronic combined systolic and diastolic heart failure (CMS/HCC) SSS (sick sinus syndrome) (CMS/HCC) ME ECG ROUTINE ECG W/LEAST 1 2 LDS [...] - 99 mg/dL 12/11/2024 5:46 PM CDT [facility] SPECIMEN SOURCE, GLUCOSE POC Capillary 12/11/2024 5:46 PM CDT [facility] Blood, whole 12/11/2024 5:46 PM CDT 12/11/2024 6:17 PM CDT Ruperto Gomez MD POINT OF CARE TESTING Fi nal Result [facility] JANICE # [id number] [address] [facility] [place] [address] * HEMODIALYSIS (12/11/2024 12:00 PM CDT) Narrative [facility] [place] - 12/11/2024 12:00 PM CDT Jim Farooq MD 12/11/2024 12:22 PM [facility] - Procedure Note Primary Six Pack Packer: Dr. Ro West PROCEDURE: Intermittent Hemodialysis INDICATION: [...] stores adequate tsat 29% Addy Jacobs NP [facility] 12/11/24, 12:00 PM us Dustin Michel ANP DIALYSIS ORDERABLES Final Res ult [facility] CLIA # [id number] [address] [facility] [facility] [place] [place] [address] * (ABNORMAL) MANUAL DIFFERENTIAL (12/11/2024 10:03 AM CDT) Only the most recent of10 resultswithin the time period is included. SEGMENTED NEUTROPHILS 3(L) 36 - 66 % 12/11/2024 11:25 AM T [facility] LYMPHOCYTES RELATIVE 97(H) 24 - 44 % 12/11/2024 11:25 AM T [facility] PLATELET EST. Decreased 12/11/2024 11:25 AM T [facility] NEUTROPHILS ABSOLUTE COUNT 1.78(L) 2.00 - 8.00 K/uL 12/11/2024 11:25 AM T [facility] LYMPHOCYTES ABSOLUTE 57.52(H) 1.20 - 4.00 K/uL 12/11/2024 11:25 AM T [facility] ATYPICAL LYMPHS ABSOLUTE 12/11/2024 11:25 AM CDT [facility] ANISOCYTOSIS 2+ /hpf 12/11/2024 11:25 AM T [facility] POIKILOCYTES 1+ /hpf 12/11/2024 11:25 AM T [facility] MACROCYTES 1+ /hpf 12/11/2024 11:25 AM T [facility] TOTAL CELLS COUNTED IN DIFF 100 12/11/2024 11:25 AM T [facility] Blood Venipuncture / Unknown 12/11/2024 10:03 AM CDT 12/11/2024 10:37 AM CDT Ruperto Gomez MD HEMATOLOGY ORDERABLES CO M Final Result [facility] CLIA # [id number] [address] [place] [address] [address] [place] [address] * (ABNORMAL) CBC WITH DIFFERENTIAL (12/11/2024 10:03 AM CDT) Only the most recent of10 resultswithin the time period is included. WBC 59.3(H) 4.8 - 10.8 K/uL 12/11/2024 11:25 AM CDT [facility] RBC 2.30(L) 4.60 - 6.20 M/uL 12/11/2024 11:25 AM CDT [facility] HEMOGLOBIN 7.3(L) 14.0 - 18.0 g/dL 12/11/2024 11:25 AM CDT [facility] HEMATOCRIT 23.5(L) 41.0 - 53.0 % 12/11/2024 11:25 AM CDT [facility] MCV 102.2 84.0 - 103.0 fL 12/11/2024 11:25 AM CDT [facility] MCH 31.7 27.0 - 34.0 pg 12/11/2024 11:25 AM CDT [facility] MCHC 31.1 30.0 - 35.0 g/dL 12/11/2024 11:25 AM CDT [facility] PLATELETS 72(L) 140 - 440 K/uL 12/11/2024 11:25 AM CDT [facility] MPV 11.3 8.9 - 12.8 fL 12/11/2024 11:25 AM CDT [facility] RDW 18.3(H) 11.0 - 14.5 % 12/11/2024 11:[facility] R[facility]-STDEV 67.4(H) 37.0 - 54.0 fL 12/11/2024 11:25 AM [facility] SMEAR REVIEWED: - See Manual Diff. 12/11/2024 11:25 AM [facility] Blood Venipuncture / Unknown 12/11/2024 10:03 AM CDT 12/11/2024 10:37 AM CDT Ruperto Gomez MD HEMATOLOGY ORDERABLES Fi nal Result [facility] # [id number] [facility] [address] [place] [address] * (ABNORMAL) RENAL FUNCTION PANEL (12/11/2024 8:58 AM CDT) SODIUM 134(L) 136 - 145 mmol/L 12/11/2024 9:55 AM CDT [facility] POTASSIUM 4.2 3.5 - 5.1 mmol/L 12/11/2024 9:55 AM CDT [facility] CHLORIDE 96(L) 98 - 107 mmol/L 12/11/2024 9:55 AM T [facility] CO2 22 22 - 29 mmol/L 12/11/2024 9:55 AM T [facility] CALCIUM 8.2(L) 8.8 - 10.2 mg/dL 12/11/2024 9:55 AM CDT [facility] BUN 59(H) 8 - 23 mg/dL 12/11/2024 9:55 AM T [facility] CREATININE 5.39(H) 0.67 - 1.17 mg/dL 12/11/2024 9:55 AM T [facility] Comment:The GFR result is no t clinically significant on patients <18 or >70 years of age. GLUCOSE 196(H) 74 - 99 mg/dL 12/11/2024 9:55 AM T [facility] ALBUMIN 3.8 3.5 - 5.2 g/dL 12/11/2024 9:55 AM CDT [facility] PHOSPHORUS 6.0(H) 2.5 - 4.5 mg/dL 12/11/2024 9:55 AM CDT [facility] GFR 10 mL/min/1. 73 sq meter 12/11/2024 9:55 AM CDT [facility] Comment:eGFR calculated with 2020 CKD-EPI equation. Vegetarian diet, extremely high or low muscle mass, and may affect results. Cystatin C with Glomerular Filtration Rate is a suitable alternative for these patients. ANION GAP 16 9 - 20 mmol/L 12/11/2024 9:55 AM CDT [facility] Blood Venipuncture / Unknown 12/11/2024 8:58 AM CDT 12/11/2024 9:25 AM CDT us Ro West MD CHEMISTRY ORDERABLES Final Result Performing Organization Address [facility] Co de Phone Number [facility] CLIA # [id number] [address] [address] * (ABNORMAL) HEMOGLOBIN AND HEMATOCRIT (12/10/2024 8:11 PM CDT) [facility] HEMOGLOBIN 7.6(L) 14.0 - 18.0 g/dL 12/10/2024 8:49 PM CDT [facility] HEMATOCRIT 25.0(L) 41.0 - 53.0 % 12/10/2024 8:49 PM CDT [facility] Blood Venipuncture / Unknown 12/10/2024 8:11 PM CDT 12/10/2024 8:32 PM CDT us Jazmin Lema MD HEMATOLOGY ORDERABLES Final Result Performing Organization Address City/[facility]/ZIP Co de Phone Number [facility] CLIA # [id number] [address] [address] * UPPER ENDOSCOPY REPORT (12/10/2024 11:09 AM CDT) Narrative Procedure Note Clinton Ascencio DO - 12/10/2024 11:09 AM CDT [facility] GI Patient Name: Nisa Renae Procedure Date: [...] Time Scope In: Scope Out: [address] [place], [place] Clinton Ascencio DO GI PROCEDURE ORDERABLES Final Result * PATHOLOGY (12/10/2024 11:00 AM CDT) CASE REPORT Surgical Pathology Report Case: [id number] Authorizing Provider: Clinton Ascencio DO Collected: 12/10/2024 11:00 AM Ordering Location: [facility] Received: 12/10/2024 03:55 PM Endoscopy Pathologist: Izaiah Sandoval MD Specimen: Stomach, ulcers 11:19 AM [facility] FINAL DIAGNOSIS A. 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 pylori by immunohistochemistry REV: GERMAIN Sandoval MD [id number] 11:19 AM [facility] at 1119 CDT DIAGNOSIS COMMENT The patient's clinical history of CLL/SLL is noted. It is unclear if the fragment of ulcer bed is from the stomach or possibly a contaminant. Clinical and endoscopic correlation is recommended. 11:19 AM [facility] GROSS DESCRIPTION A. Received in formalin labeled Renae -stomach ulcers are two fragments of tissue up to 0.4 cm. The specimen is submitted in toto in A1. Elif Davissohn 11:19 AM [facility] MICROSCOPIC DESCRIPTION After review of H&E [...] highlight polytypic plasma cells. 5 11:19 AM [facility] OPERATIVE PROCEDURE 1: ESOPHAGOGASTRODUODENOSCO PY 5 11:19 AM [facility] CLINICAL INFORMATION A Bxs of gastric ulcers Bxs of gastric ulcers 5 11:19 AM [facility] COMMENT The [employer] voice-activated dictation system may have been used [...] determined by the Diagnostic Immunohistochemistry Laboratory of [facility] in compliance with CLIA'88 regulations. Some of these tests rely on the use of analyte specific reagents and are subject to specific labeling requirements by the FDA. All controls show appropriate reactivity. This testing was developed by the Diagnostic Immunohistochemistry Laboratory of [facility]. It has not been cleared or approved by the FDA. The FDA has determined that such clearance or approval is not necessary. 11:19 AM CDT [facility] Tissue ENTIRE STOMACH / Unknown Collection / Unknown 12/10/2024 11:00 AM CDT 12/10/2024 3:55 PM CDT Comment:Bxs of gastric ulcer s us Clinton Ascencio DO PATHOLOGY/CYTOLOGY MORGAN HUBBARD Final Result Performing Organization Address City/[facility]/ZIP Co de Phone Number [facility] CLIA # [id number] [address] [place] [address] * (ABNORMAL) OCCULT BLOOD GUAIAC DIAGNOSTIC (12/08/2024 11:32 AM CDT) OCCULT BLOOD, STOOL Positive( A) Negative 12/08/2024 5:38 PM CDT [facility] Stool STOOL SPECIMEN / Unknown Collection / Unknown 12/08/2024 11:32 AM CDT 12/08/2024 5:28 PM CDT us Jazmin Lema MD BODY FLUIDS AND STOOLS Final Result [facility] CLIA # [id number] [address] [address] * (ABNORMAL) IRON, TIBC, AND PERCENT SATURATION (12/08/2024 4:23 AM CDT) IRON 55(L) 59 - 158 ug/dL 12/09/2024 4:39 PM CDT [facility] TIBC 187(L) 250 - 450 ug/dL 12/09/2024 4:39 PM CDT [facility] IRON % SATURATION 29 15 - 60 % 12/09/2024 4:39 PM CDT [facility] Blood Venipuncture / Unknown 12/08/2024 4:23 AM CDT 12/08/2024 4:33 AM CDT us Umm Dotson DO CHEMISTRY ORDERABLES Fi nal Result [facility] CLIA # [id number] [address] [address] * (ABNORMAL) FERRITIN (12/08/2024 4:23 AM CDT) FERRITIN 917.2(H) 30.0 - 400.0 ng/mL 12/09/2024 4:38 PM CDT [facility] Blood Venipuncture / Unknown 12/08/2024 4:23 AM CDT 12/08/2024 4:33 AM CDT us Umm Dotson DO CHEMISTRY ORDERABLES Fi nal Result [facility] CLIA # [id number] [address] [address] * (ABNORMAL) COMPREHENSIVE METABOLIC PANEL (12/08/2024 4:23 AM CDT) Only the most recent of5 resultswithin the time period is included. SODIUM 136 136 - 145 mmol/L 12/08/2024 5:13 AM [facility] POTASSIUM 4.3 3.5 - 5.1 mmol/L 12/08/2024 5:13 AM [facility] CHLORIDE 98 98 - 107 mmol/L 12/08/2024 5:13 AM [facility] CO2 26 22 - 29 mmol/L 12/08/2024 5:13 AM [facility] CALCIUM 8.8 8.8 - 10.2 mg/dL 12/08/2024 5:13 AM [facility] BUN 54(H) 8 - 23 mg/dL 12/08/2024 5:13 AM [facility] CREATININE 4.59(H) 0.67 - 1.17 mg/dL 12/08/2024 5:13 AM [facility] Comment:The GFR result is no t clinically significant on patients <18 or >70 years of age. GLUCOSE 153(H) 74 - 99 mg/dL 12/08/2024 5:13 AM [facility] TOTAL PROTEIN 5.4(L) 6.4 - 8.3 g/dL 12/08/2024 5:13 AM [facility] ALBUMIN 3.5 3.5 - 5.2 g/dL 12/08/2024 5:13 AM [facility] BILIRUBIN TOTAL 0.4 0.0 - 1.0 mg/dL 12/08/2024 5:13 AM [facility] ALKALINE PHOSPHATASE 85 40 - 129 U/L 12/08/2024 5:13 AM [facility] AST 28 10 - 50 U/L 12/08/2024 5:13 AM [facility] ALT 76(H) <=50 U/L 12/08/2024 5:13 AM [facility] GFR 12 mL/min/1. 73 sq meter 12/08/2024 5:13 AM CDT [facility] Comment:eGFR calculated with 2020 CKD-EPI equation. Vegetarian diet, extremely high or low muscle mass, and may affect results. Cystatin C with Glomerular Filtration Rate is a suitable alternative for these patients. ANION GAP 12 9 - 20 mmol/L 12/08/2024 5:13 AM CDT [facility] Blood Venipuncture / Unknown 12/08/2024 4:23 AM CDT 12/08/2024 4:33 AM CDT us Dustin HOPE CHEMISTRY ORDERABLES Final Re sult Performing Organization Address [facility] Co de Phone Number [facility] CLIA # [id number] [address] [address] * UNFRACTIONATED HEPARIN MONITORING (12/07/2024 6:58 AM CDT) Only the most recent of9 resultswithin the time period is included. ANTI-XA UNFRAC HEP 0.41 See Interpretation IU/mL 12/07/2024 7:19 AM CDT [facility] Blood Venipuncture / Unknown 12/07/2024 6:58 AM CDT 12/07/2024 7:02 AM CDT Narrative [facility] - 12/07/2024 7:19 AM CDT Therapeutic Range: PT/DVT Heparin Protocol 0.3 - 0.7 IU/ml Cardiac Heparin Protocol 0.3 - 0.6 IU/ml The reference range for this test is specific to the anticoagulant and is not appropriate for monitoring patients on a DOAC protocol. us Jazmin Lema MD HEMATOLOGY ORDERABLES Final Result Performing Organization Address [facility]/ZIP Co de Phone Number [facility] CLIA # [id number] [address] [address] * LACTIC ACID (12/06/2024 1:48 PM CDT) Only the most recent of3 resultswithin the time period is included. LACTIC ACID 2.0 <=2.0 mmol/L 12/06/2024 2:15 PM CDT [facility] Blood Venipuncture / Unknown 12/06/2024 1:48 PM CDT 12/06/2024 1:51 PM CDT Dustin Michel ANP CHEMISTRY ORDERABLES Final Re sult Performing Organization Address [facility] Co de Phone Number [facility] CLIA # [id number] [address] [address] * LIPASE (12/06/2024 4:51 AM CDT) [facility] LIPASE 14 13 - 60 U/L 12/06/2024 1:17 PM CDT [facility] Blood Venipuncture / Unknown 12/06/2024 4:51 AM CDT 12/06/2024 4:59 AM CDT Dustin Michel ANP CHEMISTRY ORDERABLES Final Re sult Performing Organization Address City/[facility] Co de Phone Number [facility] CLIA # [id number] [address] [address] * XR ABDOMEN FOR FEEDING TUBE 1 [...] 2. No evidence of bowel obstruction. Dustin Michel ANP DIAGNOSTIC IMAGING ORDERABLES Final Result * URINE CULTURE (12/05/2024 10:28 AM CDT) CULTURE No growth 12/06/2024 9:43 AM CDT [facility] Urine URINE SPECIMEN OBTAINED BY CLEAN CATCH PROCEDURE / Unknown Collection / Unknown 12/05/2024 10:28 AM CDT 12/05/2024 10:32 AM CDT Walt Aguero MD MICROBIOLOGY - GENERAL ORDERABLES Final Result Performing Organization Address City/[facility]/ZIP Co de Phone Number [facility] CLIA # [id number] [address] [address] [place] [address] * (ABNORMAL) BASIC METABOLIC PANEL PLUS (ADD ON CMP TO BMP) (12/05/2024 8:54 AM CDT) TOTAL PROTEIN 6.0(L) 6.4 - 8.3 g/dL 12/05/2024 3:17 PM CDT [facility] ALBUMIN 3.8 3.5 - 5.2 g/dL 12/05/2024 3:17 PM CDT [facility] BILIRUBIN TOTAL 0.8 0.0 - 1.0 mg/dL 12/05/2024 3:17 PM CDT [facility] ALKALINE PHOSPHATASE 76 40 - 129 U/L 12/05/2024 3:17 PM CDT [facility] AST 60(H) 10 - 50 U/L 12/05/2024 3:17 PM CDT [facility] ALT 120(H) <=50 U/L 12/05/2024 3:17 PM CDT [facility] Blood Venipuncture / Unknown 12/05/2024 8:54 AM CDT 12/05/2024 9:11 AM CDT Dustin HOPE CHEMISTRY ORDERABLES Final Re sult [facility] CLIA # [id number] [id number] [place] [address] * (ABNORMAL) TROPONIN (12/05/2024 8:54 AM CDT) Only the most recent of2 resultswithin the time period is included. TROPONIN T, 5TH GEN 3,843(HH) <=15 ng/L 12/05/2024 9:53 AM CDT [facility] Blood Venipuncture / Unknown 12/05/2024 8:54 AM CDT 12/05/2024 9:11 AM CDT Narrative [facility] - 12/05/2024 9:53 AM CDT Troponin elevated. us Dustin Michel ANP CHEMISTRY ORDERABLES Final Re sult [facility] CLIA # [id number] [address] [place] [address] * EKG 12-LEAD (12/05/2024 8:05 AM CDT) Only the most recent of5 resultswithin the time period is included. 12/05/2024 8:05 AM CDT Narrative INTERFACE SYSTEM - 12/05/2024 1:09 PM [address]T [address] [address] Test Date: 2024-12-05 Pat Name: NISA RENAE Department: 12 Room: [address] [place] [address] Gender: Male Medical Lab Assistant: [email or web address] : 1945 Requested By: Order Number: [id number] Reading MD: Bianca Kelly Measurements Intervals Merrick Rate: 65 P: 96 ME: 0 QRS: -76 QRSD: 200 T: 95 QT: 496 QTc: 515 Interpretive Statements Ventricular-paced rhythm Abnormal ECG Electronically Signed On 12-05-2024 13:09:51 CDT by Bianca Kelly Procedure Note Provider, Historical - 12/05/[address] [place] [address] Test Date: 2024-12-05 Pat Name: NISA RENAE Department: 12 Room: [address] [place] [address] Gender: Male Medical Lab Assistant: [email or web address] : 1945 Requested By: Order Number: [id number] Reading MD: Bianca Kelly Measurements Intervals Merrick Rate: 65 P: 96 ME: 0 QRS: -76 QRSD: 200 T: 95 [...] 136 - 145 mmol/L 12/05/2024 4:08 AM [facility] POTASSIUM 5.3(H) 3.5 - 5.1 mmol/L 12/05/2024 4:08 AM T [facility] CHLORIDE 96(L) 98 - 107 mmol/L 12/05/2024 4:08 AM [facility] CO2 22 22 - 29 mmol/L 12/05/2024 4:08 AM [facility] CALCIUM 9.5 8.8 - 10.2 mg/dL 12/05/2024 4:08 AM [facility] BUN 45(H) 8 - 23 mg/dL 12/05/2024 4:08 AM [facility] CREATININE 3.93(H) 0.67 - 1.17 mg/dL 12/05/2024 4:08 AM T [facility] Comment:The GFR result is no t clinically significant on patients <18 or >70 years of age. GLUCOSE 291(H) 74 - 99 mg/dL 12/05/2024 4:08 AM [facility] GFR 15 mL/min/1. 73 sq meter 12/05/2024 4:08 AM CDT [facility] Comment:eGFR calculated with 2020 CKD-EPI equation. Vegetarian diet, extremely high or low muscle mass, and may affect results. Cystatin C with Glomerular Filtration Rate is a suitable alternative for these patients. ANION GAP 16 9 - 20 mmol/L 12/05/2024 4:08 AM CDT [facility] Blood Venipuncture / Unknown 12/05/2024 3:27 AM CDT 12/05/2024 3:33 AM CDT us Tigist RUSSELL CHEMISTRY ORDERABLES Final Resu lt [facility] CLIA # [id number] [address] [place] [address] * (ABNORMAL) CBC WITHOUT DIFFERENTIAL (12/04/2024 9:11 PM CDT) WBC 22.6(H) 4.8 - 10.8 K/uL 12/04/2024 9:18 PM CDT [facility] RBC 3.39(L) 4.60 - 6.20 M/uL 12/04/2024 9:18 PM CDT [facility] HEMOGLOBIN 10.6(L) 14.0 - 18.0 g/dL 12/04/2024 9:18 PM CDT [facility] HEMATOCRIT 34.3(L) 41.0 - 53.0 % 12/04/2024 9:18 PM CDT [facility] MCV 101.2 84.0 - 103.0 fL 12/04/2024 9:18 PM CDT [facility] MCH 31.3 27.0 - 34.0 pg 12/04/2024 9:18 PM CDT [facility] MCHC 30.9 30.0 - 35.0 g/dL 12/04/2024 9:18 PM CDT [facility] PLATELETS 97(L) 140 - 440 K/uL 12/04/2024 9:18 PM CDT [facility] MPV 10.5 8.9 - 12.8 fL 12/04/2024 9:18 PM CDT [facility] RDW 18.4(H) 11.0 - 14.5 % 12/04/2024 9:18 PM CDT [facility] RDW-STDEV 69.1(H) 37.0 - 54.0 fL 12/04/2024 9:18 PM CDT [facility] Blood Venipuncture / Unknown 12/04/2024 9:11 PM CDT 12/04/2024 9:15 PM CDT us Tigist RUSSELL HEMATOLOGY ORDERABLES Final Res ult [facility] CLIA # [id number] [address] [place] [id number] * ECHOCARDIOGRAM W/ CONTRAST AGENT (12/04/2024 10:45 AM CDT) EJECTION FRACTION 26 INTERFACE SYSTEM 12/04/2024 8:57 AM CDT Narrative INTERFACE SYSTEM - 12/04/2024 11:13 AM CDT [facility] Cardiovascular Services Echocardiography Laboratory [address] [place] [address] Transthoracic Echocardiography Patient: Nisa Renae Study ID: ECHO COMPLETE - Gender: M : 1945 Age: 79 Room: [facility] Study Date: 12/04/2024 Pt Status: Inpatient Study Time: 08:57:28 AM [facility] #: [id number] Ordering:Tigist Dodson Stock Clerk Self Service Store: Gagandeep Nava [facility] Indications [...] (H) scot values outside specified reference range. [facility] Echo Labs are accredited with the Intersocietal Accreditation Commission - Echocardiography. Prepared and Electronically Authenticated Conrado Shearer Confirmed 12/04/2024 11:13 Procedure Note Conrado Shearer MD - 12/04/2024 [facility] Echocardiography Laboratory [address] [place] [address] Transthoracic Echocardiography Patient: Nisa Renae Study ID: ECHO COMPLETE- Gender: Manuelito : 1945 Age: 79 Room: [facility] Study Date: 12/04/2024 Pt Status: Inpatient Study Time: 08:57:28 AM CSN #: [id number] Ordering:Tigist Dodson Stock Clerk Self Service Store: Gagandeep Nava [facility] Indications [...] (H) scot values outside specified reference range. [facility] Echo Labs are accredited with theIntersocietal Accreditation Commission - Echocardiography. Prepared and Electronically Authenticated Conrado Sheraer 12/04/2024 11:13 us Tigist RUSSELL US ORDERABLES Final Result INTERFACE SYSTEM Refer to clinic/hospital department * MRSA PCR RAPID SCREEN (12/04/2024 8:29 AM CDT) MRSA PCR RESULT MRSA not detected MRSA not detected 12/04/2024 10:09 AM CDT [facility] Surveillance ANTERIOR NARES SWAB / Unknown Collection / Unknown 12/04/2024 8:29 AM CDT 12/04/2024 8:43 AM CDT Narrative [facility] - 12/04/2024 10:09 AM CDT This assay is used to detect Methicillin-Resistant S. aureus (MRSA) colonization of the nares. PLEASE NOTE: This test has not been approved to monitor effectiveness of MRSA decolonization. Residual DNA may temporarily be present after successful decolonization. This test was performed using an FDA approved screening methodology. us Tigist RUSSELL MICROBIOLOGY - GENERAL ORDERABL ES Final Result [facility] CLIA # [id number] [facility] [address] * (ABNORMAL) URINALYSIS WITH REFLEX MICROSCOPIC (12/04/2024 8:28 AM CDT) Pathologist [facility] COLOR UA Yellow Pale to Dark Yellow 12/04/2024 8:52 AM CDT [facility] CLARITY UA Cloudy(A) Clear 12/04/2024 8:52 AM T [facility] SPECIFIC GRAVITY UA 1.039(H) 1.003 - 1.035 12/04/2024 8:52 AM CDT [facility] PH UA 6.0 5.0 - 8.0 12/04/2024 8:52 AM T [facility] LEUKOCYTE ESTERASE UA 3+(A) Negative 12/04/2024 8:52 AM T [facility] NITRITE UA Negative Negative 12/04/2024 8:52 AM CDT [facility] PROTEIN UA 3+(A) Negative 12/04/2024 8:52 AM T [facility] GLUCOSE UA 1+(A) Negative 12/04/2024 8:52 AM CDT [facility] KETONES UA 1+(A) Negative 12/04/2024 8:52 AM CDT [facility] UROBILINOGEN UA <2.0 <2.0 mg/dL 8:52 AM CDT [facility] BILIRUBIN UA Negative Negative 12/04/2024 8:52 AM CDT [facility] BLOOD UA 3+(A) Negative 12/04/2024 8:52 AM CDT [facility] WBC UA >100(A) 0 - 2 /hpf 12/04/2024 8:52 AM CDT [facility] RBC UA 51-100(A) 0 - 2 /hpf 12/04/2024 8:52 AM CDT [facility] BACTERIA UA 2+(A) Negative /hpf 12/04/2024 8:52 AM CDT [facility] EPITHELIAL CELLS, URINE 0-5 0 - 5 /hpf 12/04/2024 8:52 AM T [facility] Urine URINE SPECIMEN OBTAINED BY CLEAN CATCH PROCEDURE / Unknown Collection / Unknown 12/04/2024 8:28 AM CDT 12/04/2024 8:44 AM CDT us Tigist RUSSELL URINE ORDERABLES Final Result [id number] [address] [place] [address] * (ABNORMAL) TROPONIN 6 HR, 5TH GEN (12/04/2024 7:50 AM CDT) TROPONIN T, 6 HR 5TH GEN 3,956(HH) <=15 ng/L 12/04/2024 9:04 AM CDT [facility] DELTA 6HR TROPONIN T % -10 See Interp. % 12/04/2024 9:04 AM CDT [facility] Blood Venipuncture / Unknown 12/04/2024 7:50 AM CDT 12/04/2024 8:23 AM CDT Narrative [facility] [employer] [facility] - 12/04/2024 9:04 AM CDT Troponin elevated. Delta not changing. Tigist RUSSELL CHEMISTRY ORDERABLES Final Resu lt Performing Organization Address [facility] Co de Phone Number [facility] CLIA # [id number] [address] [place] [address] * BLOOD CULTURE (12/04/2024 7:50 AM CDT) Only the most recent of2 resultswithin the time period is included. [facility] BLOOD CULTURE No growth 12/09/2024 9:31 AM CDT [facility] Blood (Peripheral) Venipuncture / Unknown 12/04/2024 7:50 AM CDT 12/04/2024 8:20 AM CDT Tig[employer] RUSSELL MICROBIOLOGY - GENERAL ORDERABL ES Final Result Performing Organization Address [facility] Co de Phone Number [facility] [employer] [facility] CLIA # [id number] [facility] [address] * (ABNORMAL) TROPONIN 2 HR, 5TH GEN (12/04/2024 3:33 AM CDT) [facility] TROPONIN T, 2 HR 5TH GEN 4,870(HH) <=15 ng/L 12/04/2024 4:55 AM CDT [facility] DELTA 2HR TROPONIN T % 10 See Interp. % 12/04/2024 4:55 AM CDT [facility] Blood Venipuncture / Unknown 12/04/2024 3:33 AM CDT 12/04/2024 3:37 AM CDT Narrative [facility] [employer] [facility] - 12/04/2024 4:55 AM CDT Troponin elevated. Delta not changing. Tigist RUSSELL CHEMISTRY ORDERABLES Final Resu lt Performing Organization Address [facility] Co de Phone Number [facility] [employer] [facility] CLIA # [id number] [address] [address] [place], [place] [id number] * (ABNORMAL) TROPONIN BASELINE, 5TH GEN (12/04/2024 1:57 AM CDT) TROPONIN T, BASELINE 5TH GEN 4,417(HH) <=15 ng/L 12/04/2024 3:01 AM CDT [facility] Blood Venipuncture / Unknown 12/04/2024 1:57 AM CDT 12/04/2024 2:00 AM CDT [facility] [employer] [facility] - 12/04/2024 3:01 AM CDT Troponin elevated. Tigist RUSSELL CHEMISTRY ORDERABLES Final Resu Performing Organization Address [facility] Co de Phone Number [facility] [employer] [facility] CLIA # [id number] [address] [address] * (ABNORMAL) PROCALCITONIN (12/04/2024 1:57 AM CDT) PROCALCITONIN 55.40(H) <=0.08 ng/mL 12/04/2024 2:53 AM CDT [facility] [employer] [facility] Blood Venipuncture / Unknown 12/04/2024 1:57 AM CDT 12/04/2024 2:00 AM CDT [facility] [employer] [facility] - 12/04/2024 2:53 AM CDT The [...] Final Resu lt Performing Organization Address [facility] Co de Phone Number [facility] CLIA # [id number] [address] [facility] [place] [address] * VANCOMYCIN LEVEL RANDOM (12/04/2024 1:57 AM CDT) [facility] VANCOMYCIN, RANDOM 19.7 5.0 - 50.0 ug/mL 12/04/2024 6:19 AM CDT [facility] Blood Venipuncture / Unknown 12/04/2024 1:57 AM CDT 12/04/2024 2:00 AM CDT Narrative [facility] - 12/04/2024 6:19 AM CDT Vancomycin Therapeutic Ranges: Vancomycin Trough: 10 - 20 mcg/mL Vancomycin Peak: 25 - 50 mcg/mL us Jim Asif MD CHEMISTRY ORDERABL ES Final Result Performing Organization Address [facility]/ZIP Co de Phone Number [facility] [employer] [facility] CLIA # [id number] [address] [facility].[address] [place] [address] * PROCEDURE PHOTOGRAPHS (12/01/2024 10:48 AM CDT) Provider Scanning PROCEDURE/MINOR SURGICAL ORDER RANDAL Final Result * ME ANESTHESIA BLOCK PB PLACEHOLDER CHARGE (11/29/2024 8:07 [...] Type: Interscalene Laterality: Left Injection technique: Single-shot [place] Identification: ultrasound guided Local injected: Lidocaine 2% [...] ABO GROUP O 11/29/2024 7:18 AM CDT [facility] [employer] [facility] RH (D) TYPE Positive 11/29/2024 7:18 AM CDT [facility] Blood Venipuncture / Unknown 11/29/2024 6:48 AM CDT 11/29/2024 6:54 AM CDT Klarissa Flowers MD BLOOD BANK ORDERABLES Final Re sult [facility] [employer] [facility] [place] CLIA#[id number] [address] [place] [address], * (ABNORMAL) PROTIME-INR (11/29/2024 6:47 AM CDT) PROTIME 15.9(H) 12.7 - 14.9 Seconds 11/29/2024 7:02 AM CDT [facility] [employer] [facility] INR 1.2 0.8 - 1.2 11/29/2024 7:02 AM CDT [facility] Blood Venipuncture / Unknown 11/29/2024 6:47 AM CDT 11/29/2024 6:50 AM CDT Narrative [facility] - 11/29/2024 7:02 AM CDT Expected Values for INR: DVT/PE Goal INR 2.5; range 2.0 - 3.0 Valve Replacement Tissue Goal INR 2.5; range 2.0 - 3.0 Valve Replacement Mechanical Goal INR 3.0; range 2.5 - 3.5 POST-OK Goal INR 2.5; range 2.0 - 3.0 or Goal INR 3.0; range 2.5 - 3.5 Atrial Fibrillation Goal INR 2.5; range 2.0 - 3.0 Ischemic Stroke Goal INR 2.5; range 2.0 - 3.0 Klarissa Flowers MD HEMATOLOGY ORDERABLES Final Re sult [facility] [employer] [facility] CLIA # [id number] [address] [address] * TYPE AND SCREEN (11/29/2024 6:47 AM CDT) ABO GROUP O 11/29/2024 7:48 AM CDT [facility] [place] RH (D) TYPE Positive 11/29/2024 7:48 AM CDT [facility] [place] ANTIBODY SCREEN Negative 11/29/2024 7:48 AM CDT [facility] [place] Blood Venipuncture / Unknown 11/29/2024 6:47 AM CDT 11/29/2024 6:50 AM CDT us Klarissa Flowers MD BLOOD BANK ORDERABLES Edited R esult - Final [facility] [place] CLIA#[id number] [address] [place] [address], * US DUPLEX PREOP VESS ASSESS LT (11/12/2024 11:13 AM CDT) Anatomical Region Laterality Modality Lower Extremity, Upper Extremity Ultrasound 11/12/2024 10:2 4 AM CDT Narrative 11/15/2024 11:17 AM CDT [facility] [address] [place] [address] [place] [address] Noninvasive Vascular Lab Upper Extremity Evaluation for Hemodialysis Access Patient: Nisa Renae Study ID: US DUPLEX PREOP Gender: M : 1945 Age: 79 Room: Height: 180cm Weight: 104.3kg BSA: 2.31m^2 Pt status: Outpatient Study Date: 11/12/2024 Study Time: 10:24:48 AM BSA: 2.31m^2 Ordering: Klarissa Flowers MD Interpreting:Janell Melgar Stock Clerk Self Service Store: Melissa Nava RVT Indications: Dx: 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 No [...] evaluation was performed. Image quality was good. [facility] is accredited with the Intersocietal Commission for the Accreditation of Vascular Laboratories (ICAVL) Prepared and Electronically Authenticated Janell Melgar Confirmed 11/15/2024 11:17 Procedure Note Janell Melgar DO - 11/15/2024 [facility] [address] [place] [address] Noninvasive Vascular Lab Upper Extremity Evaluation for Hemodialysis Access Patient: Nisa Renae Study ID: US DUPLEX PREOP Gender: M : 1945 Age: 79 Room: Height: 180cm Weight: 104.3kg BSA: 2.31m^2 Pt status: Outpatient Study Date: 11/12/2024 Study Time: 10:24:48 AM BSA: 2.31m^2 Ordering: Klarissa Flowers MD Interpreting:Janell Melgar Stock Clerk Self Service Store: Melissa PACKT Indications: Dx: Benign hypertension with ESRD (end-stage renaldisease) ([facility]) [I12.0, N18.6 (ICD-10-CM)] Summary Impression: 1. No [...] evaluation was performed. Image quality was good. [facility] is accredited withthe Intersocietal Commission for the Accreditation of Vascular Laboratories (ICAVL) Prepared and Electronically Authenticated Janell Melgar Confirmed 11/15/2024 11:17 us Klarissa Flowers MD US ORDERABLES Final Result * ME PROGRAM EVAL IMPLANTABLE IN PERSN DUAL LD PACER (10/26/2024 11:10 AM CDT) Narrative [facility] - 10/26/2024 11:10 AM CDT Kelly Han 10/26/2024 11:10 AM Office Device Check By Vendor Flea Market Seller Date of Procedure: October 25, 2024 Guest Specialist: [employer] Comments: Office check by [employer] technical support representative in conjunction w/ EP office visit. Interrogation reviewed by provider. Please see scan for details. Procedure Note Kelly Han - 10/26/2024 11:10 AM CDT Office Device Check By Vendor Fle[employer] Seller Date of Procedure: October 25, 2024 Guest Specialist: [employer] Comments: Office check by [employer] technical support representative in conjunction w/ EPoffice visit. Interrogation reviewed by provider. Please see scan for details. us Sotero Alejandro MD CARDIAC SERVICES ORDERABLES Final Result [facility] [address] [place], [place] [address] * (ABNORMAL) MICROALBUMIN/CREATININE RATIO, RANDOM UR (03/29/2024 [...] 03/31/2024 2:38 PM CDT [facility] Comment: The ADA defines abnormalities in albumin [...] 6:06 PM CDT 03/29/2024 6:15 PM CDT [facility] - 03/31/2024 2:38 PM CDT Performing Organization Information: Site ID: [place] Name: [employer] Address: [address] [place] [id number] Director: Tawanda Roca MD Jillian Monge MD URINE ORDERABLES Final Result [facility] * LIPID RFLX (03/29/2024 1:24 AM CDT) CHOLESTEROL 134 <200 mg/dL 03/29/2024 3:43 AM CDT [facility] TRIGLYCERIDE 70 <150 mg/dL 03/29/2024 3:43 AM CDT [facility] HDL 51 40 - 59 mg/dL 03/29/2024 3:43 AM CDT [facility] LDL CALCULATED 69 <100 mg/dL 03/29/2024 3:43 AM CDT [facility] NON-HDL CHOLESTEROL 83 <130 mg/dL 03/29/2024 3:43 AM CDT [facility] [employer] [facility] Blood Venipuncture / Unknown 03/29/2024 1:24 AM CDT 03/29/2024 1:52 AM CDT [facility] [employer] [facility] - 03/29/2024 3:43 AM CDT TOTAL CHOLESTEROL [...] Jaciel Yuan MD CHEMISTRY ORDERABLES Final R Finestrellault Performing Organization Address [facility] Co de Phone Number [facility] CLIA # [id number] [address] [place] [address] * (ABNORMAL) HEMOGLOBIN A1C (03/29/2024 1:24 AM CDT) HEMOGLOBIN A1C 7.1(H) <=5.6 % 03/29/2024 12:00 PM CDT [facility] EST. AVG GLUCOSE, A1C 157 mg/dL 03/29/2024 12:00 PM CDT [facility] Blood Venipuncture / Unknown 03/29/2024 1:24 AM CDT 03/29/2024 1:51 AM CDT Narrative [facility] [employer] [facility] - 03/29/2024 12:00 PM CDT HGB A1C INTERPRETATION NORMAL: <5.7% PRE-DIABETES: 5.7 - 6.4% DIABETES: 6.5% OR GREATER Jaciel Yuan MD CHEMISTRY ORDERABLES Final R esult Performing Organization Address [facility]/ZIP Co de Phone Number [facility] [employer] [facility] CLIA # [id number] [address] [address] [place] [address] from Last 3 Months or Most Recently Relevant to Health Maintenance Insurance MEDICARE PART A AND B [facility] RX GAN PLANS (INTERNAL) [facility] [employer] RX [facility] [employer] GENERIC COMM[facility]CIAL Commercial * Guarantor: [facility] H (C) Account Type Relation to Patient Date of Phone Billing Address Corporate Other DEFAULT ADDRESS [place] [id number] [place] [employer] [employer] Advance Directives For more information, please contact: [phone] * NO CPR (In Event of Cardiopulmonary [...] Non-Invasive (i.e. BiPAP, CPAP): Yes Care Teams Quarter Seamer Relationship Specialty Start Date End Date Paula Sandoval MD [address] [place] [address] PCP - General Family Practice 10/18/24
--- OUTSIDE RECORDS SUMMARY | 2024-12-30 21:46 | XMS_ITS | Encounter Summary ---
Author Organization [facility] Address [address] [place] [address] Care Team Providers Care Data Analysis Intern Name Role Phone Paula Sandoval MD Primary Care Provider + [phone] Reason for Referral * Outpatient Services (Routine) - Closed Specialty Diagnoses / Procedures Referred By Rita langley Referred To Contact Perioperative Diagnoses Gastric ulcer with hemorrhage, unspecified chronicity Procedures EGD ME ESOPHAGOGASTRODUODENOSCOPY TRANSORAL DIAGNOSTIC ME EGD TRANSORAL BIOPSY SINGLE/MULTIPLE ME EGD BALLOON DILATION ESOPHAGUS <30 MM DIAM ME DILATION ESOPH UNGUIDED SOUND/BOUGIE 1/MULT PASS Clinton Ascencio DO [address] [place] [address] Phone: tel: fax: [facility] Endoscopy [place] [address] [place] [address] Phone: tel:[phone] fax:[phone] Referral ID Status Reason Start Date Expiration Date Visits Re quested Visits Authorized [id number] Closed 12/30/2024 01/30/2026 1 1 Encounter Details Date Type Department Care Team (Late st Contact Info) Description 12/30/2024 Orders Only [facility] Gastroenterology- [place] [address] [place] [address] Clinton Ascencio DO [address] [facility] [address] [place] [address] Gastric ulcer with hemorrhage, unspecified chronicity (Primary Dx) Social History Tobacco Use Types [...] Description 01/03/2025 3:30 PM CDT Video Visit [facility] Cancer and Hematology [place] [address] [facility] [address] [place] [address] Iqra Brito NP [address] [address] 01/17/2025 11:45 AM CDT Appointment [facility] Laboratory Services [address] [place] [address] 01/19/2025 3:00 PM CDT Office Visit [facility] Cancer and Hematology [place] [address] [place] [address] Iqra Brito NP [address] [place] [address] 01/21/2025 11:00 AM CDT Office Visit [facility] [address] [facility] [address] [place] [address] Lyndsey Dorsey, MARCELLO [address] [facility] [address] [place] [address] 02/07/2025 2:00 PM CDT Hospital Encounter [facility] Endoscopy [address] [place] [address] Clinton Ascencio, DO [address] [facility] [address] [place] [address] 02/07/2025 2:00 PM CDT - 02/07/2025 2:20 PM CDT Surgery [facility] Endoscopy [address] [place] [address] Clinton Ascencio, DO [address] [facility] [address] [place] [address] ESOPHAGOGASTRODUODENOSCOPY 03/18/2025 11:30 AM CDT Office Visit [facility] Vascular Surgery [place] [address] [facility] [address] [place] [address] Klarissa Flowers MD [address] [facility] [address] [place] [address] Scheduled Orders Name Type Priority Associated Diagnoses Orde r Schedule EGD GI Routine Gastric ulcer with hemorrhage, unspecified chronicity Expected: 12/30/2024 (Approximate), Expires: 03/02/2025 Scheduled Procedures Name Priority Associated Diagnoses Date/Ti me ESOPHAGOGASTRODUODENOSCOPY gastric ulcer 02/07/2025 2:00 PM CDT documented as of this encounter Visit Diagnoses Diagnosis Gastric ulcer with hemorrhage, unspecified chronicity- Primary documented in this encounter Care Teams Data Analysis Intern Relationship Specialty Start Date End Date Paula Sandoval MD [address] [place] [address] PCP - General Family Practice 10/18/24 documented as of this encounter
--- OUTSIDE RECORDS SUMMARY | 2024-12-30 21:47 | XMS_ITS ---
Author Name [facility] Address [address] [place] [address] Phone [phone] Organization [facility] e, NA DOCUMENT DISCLAIMER Multiple document versions may exist, please be sure you review the latest version. 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 Active April 06, 2024 Benign prostatic hyperplasia without lower urinary tract symptoms N40.0 April 06, 2024 Other specified disorders of kidney and ureter N28.89 April 06, 2024 Chronic kidney disease, stage 4 (severe) N18.4 April 06, 2024 Heart failure, unspecified I50.9 Active O ctober 2023 Atherosclerotic heart diseas e of [place] coronary artery without angina pectoris I25.10 Active [...] 13, 2024 Active fluticasone propionate 50 mcg/actuation Kaleva into both nostrils twice a day 1 [...] Sign Value Date / Time Blood Pressure-sitting 151/79 mmHg December 30, 2024 11:13 AM Blood Pressure-standing 143/65 mmHg December 30, 2024 11:13 AM Heart Rate 97 beats per minute December 30 11:13 AM Respiratory Rate 16 breaths per minute December 30, 2024 11:13 AM Temperature 97.8 deg. F December 30, 2024 11 :13 AM Weight Vital Sign Value Date / Time Estimated Dry Weight 104.5 kg December 28 11:59 PM Pre-Dialysis 103.20 kg December 30, 2024 11 :13 AM Post-Dialysis 103.10 kg December 30, 2024 11 :13 AM Other Other Value Date / Time [...] - September 23, 2024 Hemoglobin x 3 28.5 % 42.0 - [...] Neutrophils 4.8 % 40.0 - 75.0 % November 25 Iron 109 mcg/dL 45 - [...] % 42.0 - 54.0 % Low December Retic HGB (CHr) 33.5 pg 25.4 - 31.8 pg High December 28, 2024 Platelets 67 1000/mcL 130 - 400 1000/mcL Low December 28, 2024 Hemoglobin x 3 27.6 % 42.0 - 54.0 % Low December HGB 9.2 g/dL 14.0 - 18.0 g/dL Low December 28, 2024 RDW 18.1 % 11.5 - 14.5 % High December 28 RBC 2.86 mill/mcL 4.70 - 6.10 mill/mcL Low December 28, 2024 WBC (No Diff) 12.39 1000/mcL 4.80 - 10.80 1000/mcL High December 28, 2024 Blast Cells 6 % 0 - 0 % High December 28, 2024 Neutrophils 2 % 40 - 75 % Low December 28, 2024 Monocytes 3 % 3 - 10 % - December 28, 2024 Lymphocytes 82 % 19 - 48 % High December 28, 2024 MCHC 30.4 g/dL 30.0 - 36.0 g/dL - December 28, 2024 MCH 32.3 pg 27.0 - 31.0 pg High December 28, HCT 30.4 % 42.0 - 52.0 % Low December 28 Iron 60 mcg/dL 45 - 160 mcg/dL - December 28, 2024 Eosinophil 3 % 0 - 7 % - December 28, 2024 Atypical Lymphs 4 % 0 - 4 % - December 28, 2024 TIBC (Calc) 205 mcg/dL 185 - 515 mcg/dL - December UIBC/TIBC 145 mcg/dL 155 - 355 mcg/dL Low December 28, 2024 Transferrin Sat. (Calc) 29 % 20 - 55 % - December 28, 2024 Metabolic/Renal Result Type Result Value Relevant Reference [...] 3.5 - 5.1 mEq/L - October 28, 025 Sodium 136 mEq/L 136 - 145 mEq/L - October 28, BUN 50 mg/dL 6 - 19 mg/dL [...] 22 - 29 mEq/L - November 25, 025 Hemoglobin A1c 7.1 % 4.8 - 5.9 % High November 25, 2024 BUN 36 mg/dL 6 - 19 mg/dL High December 28 BUN/Creat Ratio 7.2 10.0 - 20.0 Low December 28, 2024 Creatinine, Serum 5.01 mg/dL 0.60 - 1.30 mg/dL High December 28, 2024 Potassium 4.4 mEq/L 3.5 - 5.1 mEq/L - December 28, 2024 Sodium 141 mEq/L 136 - 145 mEq/L - December 28, 2024 Chloride 103 mEq/L 96 - 108 mEq/L - December 28, 2 025 Bicarbonate 25 mEq/L 22 - 29 mEq/L - December 28, 2 025 HD Adequacy Result Type Result Value Relevant [...] 275 pg/mL 16 - 80 pg/mL High Mar 2024 Vitamin D 1,25 Dihydroxy 34.3 pg/mL 19.9 - 79.3 pg/mL - August 26, 2024 Corrected Ca x P Product 46 0 - 54 - October 28, 2024 Ca x P Product 45 0 - 54 - October 28 Phosphorus 5.1 mg/dL 2.6 - 4.5 mg/dL High October 28, Calcium, Total 8.9 mg/dL 8.4 - 10.2 mg/dL - October 28, 2024 Calcium, Total 8.6 mg/dL 8.4 - 10.2 mg/dL - November 25, 2024 Phosphorus 4.8 mg/dL 2.6 - 4.5 mg/dL High November 25, 2024 Ca x P Product 41 0 - - November 25, 2 025 Alkaline Phosphatase 103 U/L 40 - 129 U/L - 2024 PTH-Intact, Plasma 432 pg/mL 16 - 80 pg/mL High Nov Corrected Ca x P Product 42 0 - November 25, 2024 Magnesium 2.3 mg/dL 1.6 - 2.6 mg/dL - November 25, 2024 Corrected Ca x P Product 28 0 - December 28, 2024 Calcium, Total 8.3 mg/dL 8.4 - 10.2 mg/dL Low December 28, 2024 Ca x P Product 27 0 - December 28, 2 025 Phosphorus 3.3 mg/dL 2.6 - 4.5 mg/dL - December 28, 2024 Liver/Nutrition Result Type Result Value Relevant [...] 70 - 100 mg/dL High November 25 025 A/G Ratio 1.9 1.0 - 2.0 - December 28, 2024 Globulin (Calc) 1.9 g/dL 2.0 - 4.0 g/dL Low December 28, 2024 Glucose 183 mg/dL 70 - 100 mg/dL High December 28 025 Albumin (BCG) 3.7 g/dL 3.5 - 5.2 g/dL - December Total Protein 5.6 g/dL 6.0 - 8.5 g/dL Low December Lipid Result Type Result Value Relevant Referen ce Range Interpretation Date LDL, (Calculated) 32 mg/dL 0 - 99 mg/dL - August 26, 2024 VLDL (Calculated) 35 mg/dL 10 - 30 mg/dL High 2024 Cholesterol HDL Ratio 2.8 0.0 - 4.5 - Aug Cholesterol, Total 104 mg/dL 0 - 199 mg/dL - Aug HDL 37 mg/dL No Reference Ran ge Provided - August 26, 2024 Triglycerides 174 mg/dL 0 - 149 mg/dL High August Immunochemistry Result Type Result Value Relevant Reference Range Interpre tation HCV s/co ratio 0.11 0.00 - 0.79 - March 232023 HCV s/co ratio 0.08 0.00 - 0.79 - August 26, 2024 Trace Elements Result Type Result Value Relevant Reference Range Interpre tation Aluminum < 5 mcg/L 0 - 10 [...] (HBsAg) Negative No Reference Range Provided - December 28, 2024 DIALYSIS PRESCRIPTION Conventional Hemodialysis Data Element Value Order Date/Time December 28, 2024 Frequency 3X Week Treatment Days TueThuSat Dialyzer 180NRe Optiflux Treatment Time (Total Minutes) 240 min Blood Flow Rate (mL/min) 450 mL/min Dialysate Flow Rate Manual 800 Estimated Dry Weight 104.5 kg Dialysate Concentrate 3.0 K, 2.5 Ca, [...] Dialysate Dialyzer Dialysis Access Meds Admin December 25, 2024 Weight 105.70 kg Weight 104.70 kg 04:02:00 460 3.0 K, 2.5 Ca, 1.0 Mg, 100 Dextrose (N3251) 180nre Optifl ux Blood Pressure-sitting 135/64 mmHg Blood Pressure-sit ting 117/64 mmHg Heart Rate 95 beats per minute Blood Pressure-standi ng 135/56 mmHg Respiratory Rate 16 breaths per minute Heart Rate 92 beats per minute Temperature 97.6 deg. F Respiratory Rate 18 breaths per minute - - Temperature 97.3 deg. F December 28, 2024 Weight 105.70 kg Weight 103.90 kg 04:07:00 450 3.0 K, 2.5 Ca, 1.0 Mg, 100 [...] Vitamin D (Calcitriol) Oral; 0.25mcg,Oral Blood Pressure-sitting 116/61 mmHg Blood Pressure-sit ting 128/67 mmHg Heart Rate 95 beats per minute Blood Pressure-standi ng 134/65 mmHg Respiratory Rate 18 breaths per minute Heart Rate 98 beats per minute Temperature 97.4 deg. F Respiratory Rate 16 breaths per minute - - Temperature 97.9 deg. F December 30, 2024 Weight 103.20 kg Weight 103.10 kg 04:06:00 450 3.0 K, 2.5 Ca, 1.0 Mg, 100 [...] Vitamin D (Calcitriol) Oral; 0.25mcg,Oral Blood Pressure-sitting 126/71 mmHg Blood Pressure-sit ting 151/79 mmHg Blood Pressure-standing 146/67 mmHg Blood Pressure-st anding 143/65 mmHg Heart Rate 101 beats per minute Heart Rate 97 beats per minute Respiratory Rate 19 breaths per minute Respiratory Rate 16 breaths per minute Temperature 98.0 deg. F Temperature 97.8 deg. F
--- OUTSIDE RECORDS SUMMARY | 2024-12-30 21:47 | XMS_ITS | Encounter Summary ---
Author Organization [facility] Address [address] [place] [address] Care Team Providers Care Healthcare Consultant Name Role Phone Paula Sandoval MD Primary Care Provider + [phone] Encounter Details Date Type Department Care Team (Late st Contact Info) Description 12/23/2024 Orders Only [facility] Cancer and Hematology [place] [address] [place] [address] Umm Dotson, [address] [place] [address] CLL (chronic lymphocytic leukemia) (CMS/HCC) [...] note were not included. Script sent to [facility] Umm Dotson, Dianne Mckinney RN Caller: Unspecified (Today, 12:36 PM) Can you send in Jaypirca 50 mg daily documented in this encounter Plan of Treatment Upcoming Encounters Date Type Department Care Team (Latest Contact Info) Description 01/03/2025 3:30 PM CDT Video Visit [facility] Cancer and Hematology [place] [address] [address] Iqra Brito NP [address] [address] 01/17/2025 11:45 AM CDT Appointment [facility] Laboratory Services [address] [address] 01/19/2025 3:00 PM CDT Office Visit [facility] Cancer and Hematology [place] [address] [facility] 2 [place] [address] Iqra Brito NP [address] [address] 01/21/2025 11:00 AM CDT Office Visit [facility] [address] [facility] [address] [place] [address] Lyndsey Dorsey, MARCELLO [address] [facility] [address] [place] [address] 02/07/2025 2:00 PM CDT Hospital Encounter [facility] Endoscopy [address] [place] [address] Clinton Ascencio, DO [address] [facility] [address] [place] [address] 02/07/2025 2:00 PM CDT - 02/07/2025 2:20 PM CDT Surgery [facility] Endoscopy [address] [place] [address] Clinton Ascencio, DO [address] [facility] [address] [place] [address] ESOPHAGOGASTRODUODENOSCOPY 03/18/2025 11:30 AM CDT Office Visit [facility] Vascular Surgery [place] [address] [facility] [address] [place] [address] Klarissa Flowers MD [address] [facility] [address] [place] [address] Scheduled Procedures Name Priority Associated Diagnoses Date/Ti me ESOPHAGOGASTRODUODENOSCOPY gastric ulcer 02/07/2025 2:00 PM CDT documented as of this encounter Visit Diagnoses Diagnosis CLL (chronic lymphocytic leukemia) (CMS/HCC)- Primary Chronic lymphoid leukemia, without mention of having achieved remission documented in this encounter Care Teams Healthcare Consultant Relationship Specialty Start Date End Date Paula Sandoval MD [address] [place] [address] PCP - General Family Practice 10/18/24 documented as of this encounter
--- OUTSIDE RECORDS SUMMARY | 2024-12-30 21:47 | XMS_ITS | Patient Health Record ---
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) Active confirmed Problem 884022870 Type 2 diabetes mellitus without complications (E11.9) Active confirmed Problem 968574014708008 Hypertensive chr onic kidney disease with stage 1 through stage 4 chronic kidney disease, or unspecified chronic kidney disease (I12.9) Active confirmed Problem Chronic kidney disease stage 4 (427200582) Chronic kidney disease, stage 4 (severe) (N18.4) Active confirmed Problem 11810386 Secondary hyperparathyroidism of renal origin (N25.81) Active confirmed Problem Essential hypertension (11993193) HTN (hypertension), benign (I10) Active confirmed Problem Chronic kidney disease stage 4 (252709100) CKD (chronic kidney disease), stage IV (N18.4) Active confirmed Problem Hyperparathyroidism (06392252) Hyperparathyroidism (E21.3) Active confirmed Problem 14953429 Hypertension, be nign (I10) Active confirmed Problem Chronic lymphoid leukemia, disease (89938018) CLL (chronic lymphocytic leukemia) (C91.10) Active confirmed Problem Chronic kidney disease stage 4 (245491628) Chronic kidney disease, stage IV (severe) (N18.4) Active confirmed Problem 454866942 BPH NOS w ur obs/LUTS (N40.1) Active confirmed Problem 825096520232676 Chronic kidney disease, stage 3a (N18.31) Active [...] 2024 Encounters Encounter Location Date Provider Diagnosis [facility] Nephrology [address] [place] [address] 01/08/2024 Sally Haney [facility] Nephrology [address] [place] [address] 02/03/2024 aSlly Haney Hypertensive chronic kidney disease with stage 1 through stage 4 chronic kidney disease, or unspecified chronic kidney disease I12.9 ; Chronic kidney disease, stage IV (severe) N18.4 ; 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 ; Non-nephrotic range proteinuria R80.9 ; Asymptomatic hyperuricemia E79.0 and Secondary hyperparathyroidism of renal origin N25.81 [facility] [address] [place] [address] 03/09/2024 Tito [facility] Nephrology [address] [place] [address] 07/16/2024 Tito Leone [facility] Nephrology [address] [place] [address] 07/19/2024 [facility] Nephrology [address] [place] [address] 2024 Tito Leone Chronic kidney disea se, [...] up in 3 months with labs at [facility] BMP, mag, uric acid, phos, PTH, [...] Name Order Date Basic Metabolic Panel (BMP) 54363 2023 Hemoglobin 23523 09/30/2023 Magnesium (B) 43576 09/30/2023 Phosphorus (B) 99829 09/30/2023 Protein (U) Random 50197 09/30/2023 Uric Acid (B) 85084 09/30/2023 Creatinine (U) 11095 09/30/2023 UA Reflex Micro, Reflex Cult 86571, 8101 5, 68069 09/30/2023 PTH Intact 85613 09/30/2023 Basic Metabolic Panel (BMP) 46756 2020 Phosphorus (B) 02624 12/07/2020 PTH Intact 08372 12/07/2020 Basic Metabolic Panel (BMP) 69053 2022 Ferritin 59916 06/18/2023 Hemoglobin 86788 06/18/2023 Iron Binding Capacity Total 29814 2022 Iron Level 66406 06/18/2023 Magnesium (B) 26853 06/18/2023 Phosphorus (B) 17224 06/18/2023 Protein (U) Random 88644 06/18/2023 Uric Acid (B) 37926 06/18/2023 Creatinine (U) 23224 06/18/2023 UA Reflex Micro, Reflex Cult 16197, 8101 5, 53132 06/18/2023 PTH Intact 22244 06/18/2023 Albumin 87288 02/03/2024 Basic Metabolic Panel (BMP) 86546 2023 Ferritin 26542 02/03/2024 Hemoglobin 50024 02/03/2024 Iron Binding Capacity Total 76897 2023 Iron Level 82107 02/03/2024 Magnesium (B) 95712 02/03/2024 Phosphorus (B) 37119 02/03/2024 Protein (U) Random 43254 02/03/2024 Uric Acid (B) 22145 02/03/2024 Vitamin D Total (B) 69551 02/03/2024 Creatinine (U) 56156 02/03/2024 UA Reflex Micro, Reflex Cult 73932, 8101 5, 18456 02/03/2024 PTH Intact 91142 02/03/2024 % Iron Saturation (Fe & TIBC)--80521,835 50 02/03/2024 Future Test Test Name Order Date Basic Metabolic Panel (BMP) 28436 2023 CBC w\ Auto Diff 96791 06/17/2024 Ferritin 27855 06/17/2024 Hemoglobin 84558 06/17/2024 Magnesium (B) 98460 06/17/2024 Phosphorus (B) 41521 06/17/2024 Protein (U) Random 56394 06/17/2024 Uric Acid (B) 75457 06/17/2024 Microalbumin (U) Random 04035 06/17/2024 Creatinine (U) 05194 06/17/2024 UA Reflex Micro, Reflex Cult 47053, 8101 5, 70971 06/17/2024 PTH Intact 45587 06/17/2024 % Iron Saturation (Fe & TIBC)--20540,835 50 06/17/2024 Insurance Providers Payer Name Payer Address Payer Phone Subscriber Number Group Number Insured Name Patient Relationship to Insured Coverage Start Date Coverage End Date [employer] [address] [place] [address] [id number] Valente Renae Self - patient is the insured Medical (General) History Medical History History ICD Code Allergic rhinitis Benign prostatic hyperplasia (BPH) Coronary artery disease Chronic lymphocytic leukemia GERD Hyperlipidemia Hypertension Type II diabetes Diabetic nephropathy hearing loss COVID (12/2020) Stage IV CKD Hyperkalemia Anemia Secondary hyperparathyroidism of renal o rigin Metabolic acidosis Hyperuricemia Surgical History Surgery Date(Month/Year) 4v-CABG appendectomy coronary stents x2 Hospitalization History Reason Date(Month/Year) see surgical
--- OUTSIDE RECORDS SUMMARY | 2024-12-30 21:47 | XMS_ITS | Encounter Summary ---
Author Organization [facility] Address [address] [place] [address] Care Team Providers Care Energy Rater Name Role Phone Paula Sandoval MD Primary Care Provider + [phone] Reason for Visit * Reason Onset Date Comments Appointment Notification 05/25/2024 Needs a different appointment time 05/25/2024 Encounter Details Date Type Department Care Team (Late st Contact Info) Description 05/25/2024 Telephone [facility] [address] [place] [address] Eugenie Mederos, ALL [address] [facility] [address] [place] [address] Appointment Notification; Needs a different appointment [...] encounter Miscellaneous Notes * Telephone Encounter - Mariah Putnam - 05/25/2024 3:32 PM CST [place] (Provider) [...] due to the long drive in from [place] Please assist . Thank you Cardiology Appraiser Personal Property: Kathi Putnam AL RUNNER documented in this encounter Plan of Treatment Upcoming Encounters Date Type Department Care Team (Latest Contact Info) Description 01/03/2025 3:30 PM CDT Video Visit [facility] Cancer and Hematology [place] [address] [address] Iqra Brito NP [address] [address] 01/17/2025 11:45 AM CDT Appointment [facility] Cancer [facility]eron Sud[facility] Laboratory Services [address] [address] 01/19/2025 3:00 PM CDT Office Visit [facility] Cancer and Hematology [place] [address] [address] Iqra Brito NP [address] [address] 01/21/2025 11:00 AM CDT Office Visit [facility] [address] [facility] [address] [place] [address] Lyndsey Dorsey, WRITER PRODUCER [address] [facility] [address] [place] [address] 02/07/2025 2:00 PM CDT Hospital Encounter [facility] Endoscopy [address] [place] [address] Clinton Ascencio, DO [address] [facility] [address] [place] [address] 02/07/2025 2:00 PM CDT - 02/07/2025 2:20 PM CDT Surgery [facility] Endoscopy [address] [place] [address] Clinton Ascencio, DO [address] [address] ESOPHAGOGASTRODUODENOSCOPY 03/18/2025 11:30 AM CDT Office Visit [facility] Vascular Surgery [place] [address] [address] Klarissa Flowers MD [address] [facility] [address] [place] [address] Scheduled Procedures Name Priority Associated Diagnoses Date/Ti me ESOPHAGOGASTRODUODENOSCOPY gastric ulcer 02/07/2025 2:00 PM CDT documented as of this encounter Visit Diagnoses Not on filedocumented in this encounter Care Teams Energy Rater Relationship Specialty Start Date End Date Paula Sandoval MD [address] [place] [address] PCP - General Family Practice 10/18/24 documented as of this encounter
--- NOTE | 2024-12-30 22:04 | XRR_ITS ---
PROCEDURE INFORMATION: Exam: XR Chest Exam date and time: 12/30/2024 10:05 PM Age: 79 years old Clinical indication: Shortness of breath; Additional info: SOB TECHNIQUE: Imaging protocol: Radiologic exam of the chest. Views: 1 view. COMPARISON: CR (CHEST, ) 12/28/2024 11:05 PM FINDINGS: Tubes, catheters and devices: Left-sided pacemaker. Right-sided central venous catheter. Lungs: Bibasilar atelectasis versus minimal infiltrate. Pleural spaces: Unremarkable. No pleural effusion. No pneumothorax. Heart/Mediastinum: Cardiomegaly and mild pulmonary vascular congestion. Bones/joints: Sternotomy wires. XR/XR chest 1V portable [id number] IMPRESSION: 1. Cardiomegaly and mild pulmonary vascular congestion. 2. Bibasilar atelectasis versus minimal infiltrate. 3. Sternotomy wires. 4. Left-sided pacemaker. 5. Right-sided central venous catheter.
--- NOTE | 2024-12-30 22:07 | W.ED.SOB ---
HPI - SOB/Dyspnea General: Chief Complaint: Shortness of Breath/Dyspnea Stated Complaint: SOB Time Seen by Provider: 12/30/24 21:40 History of Present Illness: HPI Narrative: Patient presents with acute shortness of breath that developed after dialysis today. Patient reports difficulty breathing and states I just haven't been able to breathe. Patient had dialysis earlier today and ate supper before symptoms worsened. Per patient's , he was recently hospitalized at [facility] for pneumonia last month. reports patient has a deep cough with productive sputum that is now becoming tinged with pink. Patient describes coughing up white phlegm and water. Patient denies fever. Patient has history of chronic lymphocytic leukemia (CLL) with thrombocytopenia (platelets reported around 89,000 on Friday, previously 114,000). Patient has end-stage renal disease (ESRD) on hemodialysis but still makes urine. Patient has a prescription for Lasix but reports not taking it. notes that today was the first time they used his graft for dialysis, and he had prolonged bleeding post-procedure. Related Data Home Medications ?Medication ?Instructions ?Recorded ?Confirmed docusate sodium 100 mg capsule 100 mg PO BID PRN Constipation 12/02/19 07/07/24 (Colace) cholecalciferol (vitamin D3) 25 50 mcg PO DAILY 12/14/20 07/07/24 mcg (1,000 unit) capsule atorvastatin 10 mg tablet 10 mg PO DAILY@18 03/02/21 07/07/24 diclofenac sodium 1 % topical gel 4 g topical QID PRN Pain 05/02/21 07/07/24 insulin regular human 100 unit/mL See Rx Instructions .Route 05/02/21 07/07/24 injection solution (Novolin R .COMPLEX see pharmacy comments Regular U-100 Insulin) loratadine 10 mg tablet (Claritin) 10 mg PO DAILY 05/02/21 07/07/24 tamsulosin 0.4 mg capsule 0.4 mg PO DAILY 10/18/21 07/07/24 fluticasone propionate 50 2 spray intranasal DAILY 07/16/22 07/07/24 mcg/actuation nasal spray,suspension (Flonase Allergy Relief) finasteride 5 mg tablet 5 mg PO DAILY 11/20/22 07/07/24 insulin glargine 100 unit/mL (3 35 unit SUBCUT QAM 11/20/22 07/07/24 mL) subcutaneous pen nifedipine 60 mg tablet,extended 60 mg PO DAILY 11/20/22 07/07/24 release omega 4-djh-kqa-fish oil 1,000 mg 1 cap PO BID 11/20/22 07/07/24 (120 mg-180 mg) capsule (Fish Oil) carvedilol 3.125 mg tablet 3.125 mg PO Q12H 05/12/24 07/07/24 sevelamer carbonate 800 mg tablet 800 mg PO TID 05/12/24 07/07/24 Previous Rx's ?Medication ?Instructions ?Recorded isosorbide mononitrate 120 mg 120 mg PO DAILY #90 tabs 09/25/23 tablet,extended release 24 hr furosemide 40 mg tablet See Rx Instructions .Route 02/10/24 .COMPLEX #30 tabs Allergies Allergy/AdvReac Type Severity Reaction Status Date / Time allopurinol Allergy ALGY-Rash Verified 07/07/24 10:04 Iodinated Contrast Media Allergy ALGY-Hives Verified 07/07/24 10:04 levofloxacin (From Levaquin) Allergy ADR-Confusi Verified 07/07/24 10:04 on metformin Allergy ADR-Fatigue Verified 07/07/24 10:04 d Review of Systems General: Reports: 10 or more systems reviewed and unremarkable except in HPI and below PFSH ED PFSH: Medical History (Updated 12/31/24 @ 00:22 by Bernard Pitts DO) Hyperuricemia History of COVID-19 (~12/2020) Anemia, unspecified Complex renal cyst BPH loc w urin obs/LUTS Diabetes HTN (hypertension) ASHD (arteriosclerotic heart disease) Dyslipidemia CKD (chronic kidney disease) CLL (chronic lymphocytic leukemia) Carotid stenosis, bilateral Surgical History H/O removal of testicle S/P appendectomy S/P CABG (coronary artery bypass graft) S/P PTCA (percutaneous transluminal coronary angioplasty) Status cardiac pacemaker Family History Mother , in her 70's Diabetes CAD (coronary artery disease) Father , at age 69 CAD (coronary artery disease) Hypertension Other Cancer Chronic kidney disease (CKD) Stroke Suicide Denies family history of Clotting disorder Dementia Hyperlipidemia Psychiatric illness Anesthesia complication Bleeding disorder Lung disease Social History Smoking and tobacco/nicotine status: former use of tobacco/nicotine Quit status (tobacco/nicotine): has quit using Year quit tobacco: 1989 Alcohol intake: never Substance/Drug Use: never Household members: spouse Marital status: Current occupational status: retired Physical Exam Const: COMMON NORMALS: no acute distress, patient oriented x3, alert and well nourished HENMT: COMMON NORMALS: normocephalic HEAD & SCALP: normocephalic Neck/C-Spine: COMMON NORMALS: no JVD Chest: COMMONS NORMALS: normal inspection of the chest and normal palpation of entire chest wall Resp: COMMON NORMALS: normal respiratory effort, No retractions, No use of accessory muscles, clear to auscultation bilaterally and percussion normal AUSCULTATION: clear to auscultation bilaterally PERCUSSION: percussion normal Cardio: COMMON NORMALS: no JVD GI: COMMON NORMALS: Normal to inspection, nondistended, normoactive bowel sounds present, Soft to palpation, non-tender, No hepatosplenomegaly present, no masses and no bruits PALPATION: Yes Soft to palpation and Yes No hepatosplenomegaly present Extremity: COMMON NORMALS: normal to inspection, full ROM, capillary refill normal, no joint enlargement, no clubbing, cyanosis or edema, no calf tenderness and no pedal edema Neuro: COMMON NORMALS: patient oriented x3 SENSORIUM/ORIENTATION: Yes alert Skin: COMMON NORMALS: no rashes or lesions noted, turgor normal and no jaundice GENERAL SKIN EXAM: no rashes or lesions noted and turgor normal Course Vital Signs: Vital signs: Vital Signs Temperature 98.2 F 12/30/24 21:42 Pulse Rate 96 12/30/24 21:42 Respiratory Rate 18 12/30/24 21:42 Blood Pressure 150/68 12/30/24 21:42 Pulse Oximetry 97 12/30/24 21:42 Oxygen Delivery Me thod Nasal Cannula 12/30/24 21:42 Oxygen Flow Rate 1.5 12/30/24 21:42 MDM - SOB/Dyspnea Medical Decision Making 1. Acute Shortness of Breath: - Likely multifactorial etiology including volume overload post-dialysis and possible pulmonary edema - Possible residual/recurrent pneumonia given recent hospitalization - Will review chest X-ray to assess for fluid status and pulmonary infiltrates - Consider supplemental oxygen therapy based on oxygen saturation levels 2. End-Stage Renal Disease on Hemodialysis: - Patient had dialysis today with normal fluid removal - Consider reassessment of dry weight and dialysis prescription - Discuss with nephrology regarding possible need for more aggressive ultrafiltration - Consider resuming Lasix if volume overload is confirmed 3. Chronic Lymphocytic Leukemia with Thrombocytopenia: - Will check CBC to assess current platelet count - Monitor for signs of bleeding, especially with hemoptysis concerns - Hemoglobin previously dropped to 6.9, required erythropoietin 4. Hemoptysis: - Likely related to forceful coughing in setting of thrombocytopenia - Will monitor closely and consider platelet transfusion if bleeding worsens 5. Follow-up: - Continue deep breathing exercises as previously recommended - Complete diagnostic workup including labs and imaging - Reassess after results available to determine need for admission vs. discharge Medical Records Patient feels significantly better after emergency department stay as oxygen saturations have been reasonable. It appears this is likely some mild pulmonary edema. He does still make urine and has been helped in the past by diuretic he currently is not on 1 will give him a dose send if he still having trouble he may need to contact his manager asset management. Return precautions follow-up instructions given. Lab Data 12/30/24 22:21 12/30/24 22:21 Labs/Radiology: Radiology Impressions Chest X-Ray 12/30/24 22:04 IMPRESSION: 1. Cardiomegaly and mild pulmonary vascular congestion. 2. Bibasilar atelectasis versus minimal infiltrate. 3. Sternotomy wires. 4. Left-sided pacemaker. 5. Right-sided central venous catheter. Laboratory Results WBC 12.43 10^3/uL (3.29-11.43) H 12/30/24 22:21 RBC 2.99 10^6/uL (3.85-5.65) L 12/30/24 22:21 Hgb 9.50 g/dL (11.27-16.99) L 12/30/24 22: Hct 31.3 % (37-53) L 12/30/24 22:21 MCV 104.7 fl (82-101) H 12/30/24 22:21 MCH 31.8 pg (27-33) 12/30/24 22: MCHC 30.4 g/dL (30-55) 12/30/24 22:21 RDW 18.5 % (12.1-15.1) H 12/30/24 22:21 Plt Count 95 10^3/cmm (157-399) L 12/30/24 22:21 MPV 10.0 fL (7.4-10.4) 12/30/24 22:21 Neut % (Auto) 20.0 % 12/30/24 22:21 Lymph % (Auto) 77.1 % 12/30/24 22:21 [place] % (Auto) 1.0 % 12/30/24 22:21 Eos % (Auto) 1.4 % 12/30/24 22:21 Baso % (Auto) 0.2 % 12/30/24 22:21 Neut # (Auto) 2.49 10^3/uL (1.8-7.7) 12/30/24 22:21 Lymph # (Auto) 9.6 10^3/uL (0.8-4.8) H 12/30/24 22:21 [place] # (Auto) 0.1 10^3/uL (0.2-0.9) L 12/30/24 22:21 Eos # (Auto) 0.2 10^3/uL (0.0-0.8) 12/30/24 22:21 Baso # (Auto) 0.0 10^3/uL (0.0-0.1) 12/30/24 22:21 Nucleated RBC % (auto) 0.2 % 12/30/24 22:21 Nucleated RBCs # 0.0 /100WBC 12/30/24 22:21 Sodium 136 mmol/L (136-145) 12/30/24 22:21 Potassium 4.8 mmol/L (3.5-5.1) 12/30/24 22:21 Chloride 96 mmol/L (98-107) L 12/30/24 22:21 Carbon Dioxide 28 mmol/L (22-29) 12/30/24 22:21 Anion Gap 16.8 (5-19) 12/30/24 22:21 BUN 17 mg/dL (8-23) 12/30/24 22:21 Creatinine 3.2 mg/dL (0.7-1.2) H 12/30/24 22:21 GFR Calculation Not Reportable 12/30/24 22:21 Glucose 236 mg/dL (65-115) H 12/30/24 22:21 Calculated Osmolality 291 mOsm/kg (285-295) 12/30/24 22:21 Calcium 9.4 mg/dL (8.5-10.5) 12/30/24 22:21 NT-Pro-B Natriuret Pep 63465 pg/mL (0-450) H 12/30/24 22:21 XR interpretation done by ED provider, pending radiology final review Discharge Plan Discharge Patient Disposition: Home Clinical Impression: CLL (chronic lymphocytic leukemia), Congestive heart failure, Pulmonary edema Condition: Stable Prescriptions: No Action cholecalciferol (vitamin D3) 25 mcg (1,000 unit) capsule 50 mcg PO DAILY atorvastatin 10 mg tablet 10 mg PO DAILY@18 carvedilol 3.125 mg tablet 3.125 mg PO Q12H Rx Instructions: must administer with a meal/food sevelamer carbonate 800 mg tablet 800 mg PO TID Rx Instructions: must administer with a meal/food finasteride 5 mg tablet 5 mg PO DAILY omega 3-ojw-lbj-fish oil [Fish Oil] 1,000 mg (120 mg-180 mg) capsule 1 cap PO BID insulin glargine 100 unit/mL (3 mL) insulin pen 35 unit SUBCUT QAM nifedipine 60 mg tablet extended release 60 mg PO DAILY isosorbide mononitrate 120 mg tablet extended release 24 hr 120 mg PO DAILY Qty: 90 3RF furosemide 40 mg tablet See Rx Instructions .ROUTE .COMPLEX Qty: 30 0RF Dose Instruction: TAKE 1 TABLET BY MOUTH ONCE DAILY NEEDED FOR EDEMA Rx Instructions: TAKE 1 TABLET BY MOUTH ONCE DAILY NEEDED FOR EDEMA; docusate sodium [Colace] 100 mg Capsule 100 mg PO BID PRN (Reason: Constipation) fluticasone propionate [Flonase Allergy Relief] 50 mcg/actuation spray,suspension 2 spray INTRANASAL DAILY Novolin R Regular U100 Insulin 100 unit/mL Solution See Rx Instructions .ROUTE .COMPLEX Rx Instructions: sliding scale 3-18 units bid Claritin 10 mg Tablet 10 mg PO DAILY diclofenac sodium 1 % Gel 4 g TOPICAL QID PRN (Reason: Pain) tamsulosin 0.4 mg capsule 0.4 mg PO DAILY Discharge Orders: Discharge ED (Routine); Ordered 12/31/24 Ordered By: Bernard Pitts Referrals: Paula Sandoval MD [Primary Care Provider, Family Practice] Discharge Diet: Cardiac Discharge Activity: Limit activity as instructed Patient Instructions: Opioid Safety, Pain Management, Patient Portal & [place] Instructions Activity Restrictions/Additional Instructions: 1. Limit fluids and sodium. 2. Rest and call PCP and Nephrology tomorrow. 3. Return for new or worsening symptoms. Print Language: South Korean Coding Level of Care Code ED Drum Sander Offbearer for Jordin Moreno
[2024-12-30 22:40] LABS: Hematocrit 31.3 % (37-53); Hemoglobin 9.50 g/dL (11.27-16.99); Mean Corpuscular HGB Conc 30.4 g/dL (30-55); Mean Corpuscular Hemoglobin 31.8 pg (27-33); Mean Corpuscular Volume 104.7 fl (82-101); Nucleated Red Blood Cells % 0.2 %; Platelet Count 95 10^3/cmm (157-399); Red Blood Count 2.99 10^6/uL (3.85-5.65); White Blood Count 12.43 10^3/uL (3.29-11.43)
[2024-12-30 23:06] LABS: Slide Review Slide Review Perform
[2024-12-30 23:10] LABS: Anion Gap 16.8 (5-19); Blood Urea Nitrogen 17 mg/dL (8-23); Calcium 9.4 mg/dL (8.5-10.5); Carbon Dioxide 28 mmol/L (22-29); Chloride 96 mmol/L (98-107); Creatinine Clr Calc Pharmacy 22.9165; Glucose 236 mg/dL (65-115); Osmolality Calculated 291 mOsm/kg (285-295); Potassium 4.8 mmol/L (3.5-5.1); Sodium 136 mmol/L (136-145)
[2024-12-30 23:36] LABS: NT Pro B Type Natriuretic Pept 58854 pg/mL (0-450)
[2024-12-31] MEDS: FUROsemide 10 mg/mL SDV 4mL 40 MG IVP (00:16)
[2024-12-31 00:55] VITALS: BP 160/78; PULSE 74; RESP 20; O2SAT 96
== END 2024-12-31 00:57 | disposition home or self-care (01) ==
PROVIDERS: Emergency Provider Family Medicine; PCP Family Medicine
DX: C91.10 Chronic lymphocytic leukemia of B-cell type not having achieved remission (principal); N18.6 End stage renal disease; I13.2 Hypertensive heart and chronic kidney disease with heart failure and with stage 5 chronic kidney disease, or end stage renal disease; Z99.2 Dependence on renal dialysis; I50.1 Left ventricular failure, unspecified; Z79.899 Other long term (current) drug therapy; Z79.4 Long term (current) use of insulin; Z88.8 Allergy status to other drugs, medicaments and biological substances; Z91.041 Radiographic dye allergy status; E11.22 Type 2 diabetes mellitus with diabetic chronic kidney disease; E78.5 Hyperlipidemia, unspecified; Z95.0 Presence of cardiac pacemaker; Z87.891 Personal history of nicotine dependence
CPT/HCPCS: 71045; 80048; 83880; 85025; 96374; 99284; J1938

== ENCOUNTER 2025-01-10 11:37 | Emergency (ER) | payer OTHER, MEDICARE, SELFPAY ==
--- OUTSIDE RECORDS SUMMARY | 2025-01-03 05:56 | XMS_ITS | Encounter Summary ---
Author Name [facility] [place] Organization [facility] [place] Address [address] [place] [address] Care Team Providers Care Vice President Digital Strategist Name Role Phone TATO SANDOVAL Primary Care [...] PART A Feb 21, 2009 PART A [id number] ANGELLA RENAE PATIENT MEDICARE (WNR) MEDICARE (M) PART B Feb 21, 2009 PART B [id number] ANGELLA RENAE PATIENT MEDICARE (WNR) MEDICARE (M) PART A Feb 21, 2009 PART A [id number] ANGELLA RENAE PATIENT MEDICARE (WNR) MEDICARE (M) PART B Feb 21, 2009 PART B [id number] [phone] ANGELLA RENAE PATIENT MEDICARE (WNR) MEDICARE (M) PART A Feb 21, 2009 PART A [id number] ANGELLA RENAE PATIENT MEDICARE (WNR) MEDICARE (M) PART B Feb 21, 2009 PART B [id number] ANGELLA RENAE PATIENT [place]ANS[place] MED[place] PLAN F MEDIC ARE SUPPL EMENT 2013 PLAN F [id number] [phone] ANGELLA RENAE PATIENT [place] SUPPLEMEN [place] MEDIC ARE SUPPL EMENT 2013 PLAN F [id number] [phone] ANGELLA RENAE PATIENT Selected Encounter This section includes the information on record at [place] for the Encounter. Date/Time Encounter Type Encounter Description Reason Pro vider Source Jan 03, 2025 10:56 AM Outpatient Encounter TELEPHONE TRIAGE IHE Encounter Template Text not used by [place] Plan of Treatment: Future Appointments (+ 6 months) and Future Tests (+/- 45 days) The Plan of Treatment section includes future care activities for the patient from all [place] [facility] This section includes future appointments and future orders which are active, pending or scheduled. Future Appointments This section includes appointments that were scheduled to occur 6 months from the date of the Encounter, up to a maximum of 20 appointments. The data comes from all [place] treatment [facility]. Appointment Date/Time Appointment Type Appointme nt Facility Name Feb 02, 2025 08:00 PM AMBULATORY - MEDICINE [facility] Feb 07, 2025 02:00 PM AMBULATORY - MEDICINE [facility] Jun 13, 2025 08:40 AM AMBULATORY - MEDICINE [facility] Jun 20, 2025 10:00 AM AMBULATORY - MEDICINE [facility] Active, Pending, and Scheduled Orders This section includes a listing of several types of active, pending, and scheduled orders, including clinic medications orders, diagnostic test orders, procedure orders and consult orders; where the start date of the order is 45 days before the date of the Encounter or 45 days after the date of theEncounter. The data comes from all [facility]. Test Date/Time Test Type Test Details Facility Name Dec 20, 2024 10:07 AM Consult Order COMMUNITY CARE-HEMATOLOGY/ONC [id number] Oiling Truck Driver's Choice [facility] Dec 22, 2024 12:54 PM Consult Order COMMUNITY CARE-GI GENERAL [id number] Oiling Truck Driver's Choice [facility] Dec 22, 2024 05:03 PM Consult Order COMMUNITY CARE-SLEEP [id number] Oiling Truck Driver's Choice [facility] Encounter Notes: All associated encounter notes This section contains the clinical notes associated to the Encounter. Date/Time Encounter Note(s) Provider Source Jan 03, 2025 10:56 AM RN PROGRESS NOTE: LOCAL TITLE: CCC: CLINICAL TRIAGE STANDARD TITLE: RN PROGRESS NOTE DATE OF NOTE: JAN 03, 2025@10:56:46 ENTRY DATE: JAN 03, 2025@10:56:46 AUTHOR: MALIA CESPEDES COSIGNER: URGENCY: STATUS: COMPLETED CCC: CLINICAL TRIAGE Has ADDENDA Caller Verification Caller/Recipient Relation to Patient: Other If Other Describe Relation to Patient: daughter Caller Name: BROOKE RENAE Emergency Contact: BROOKE RENAE Nursing Plan and Disposition Other course(s) of action Generated msg to PACT/Provider Provided guidance for worsening symptoms: *Caller/Patient* advised to call facilities [place] Clinical Contact Center or seek immediate medical attention for new or worsening symptoms Non-Triage/Non-Symptom Call Generated msg to PACT/Provider-NonTriage Clinical Contact Center Codes Clinic/Location: V15 PB PHONE CCC RN Notes Notes & Information: Veterans daughter called inquiring about new medication OLANZAPINE. Caller is concerned why is taking this medication based off last doctor's visit. Caller is concerned with the additional side effects of this medication and with the ongoing diagnoses has. Caller stated that is also having anxiety and insomnia due to his anxiety. No triage was completed at this time since was not present. This nurse did offer providing CCC number to have call. Caller elected to speak with primary care team. This nurse attempted to reach primary care team without success. Alerting primary care team to follow-up with caller regarding topic. Good contact number is in chart but an emergency contacts. IMPORTANT: This note was created by [facility] Clinical Contact Center staff. Please do not alert the staff member by adding them as a signer for future communications. Alerts are not monitored by this user. /nichelle/ MALIA CESPEDES RN MSN BSN Signed: 01/03/2025 10:56 Receipt Acknowledged By: 01/06/2025 11:10 /nichelle/ NICHOLAS LION LPN [facility] 01/06/2025 ADDENDUM STATUS: COMPLETED Called and spoke with Veterans daughter Brooke Renae- she states Stephens is having some increased anxiety with health issues and he is unable to sleep, has had issues with feeling like he can not breathe, has went to the ER more than once, and o2 levels are fine. He is scheuled for a sleep study due to some apneic periods at night while he was hospitalized last month. Stephens was able to get central line removed, no date as of yet to new pacemaker. They are curious as to why Dr Sandoval chose Olanzapine for for anxiety. He was given this medication back in April 2024 but he has never taken in- not that they are opposed to, but wondering why Dr Sandoval specifically chose that medication for him. She states was given IV benadryl with dialysis and he did finally sleep some Friday and he had a much better day yesterday. I advised I will follow up with Dr Hanson but that [place]24[place]25- They will continue to monitor, may try this medicaine if needed and follow up and let us know if so. /nichelle/ NICHOLAS LION LPN [facility] Signed: 01/06/2025 11:17 Receipt Acknowledged By: * AWAITING SIGNATURE * TATO SANDOVAL,MALIA WORTHY [facility]
--- OUTSIDE RECORDS SUMMARY | 2025-01-03 06:16 | XMS_ITS | Encounter Summary ---
Author Name [facility] [place] [place] Organization [facility] [place] Address [address] [place] [address] Care Team Providers Care C Java Developer Name Role Phone TATO BARRAZA Primary Care [...] PART A Feb 21, 2009 PART A [id number] [phone] ANGELLA MARTIN PATIENT MEDICARE (WNR) MEDICARE (M) PART B Feb 21, 2009 PART B [id number] ANGELLA MARTIN PATIENT MEDICARE (WNR) MEDICARE (M) PART A Feb 21, 2009 PART A [id number] ANGELLA MARTIN PATIENT MEDICARE (WNR) MEDICARE (M) PART B Feb 21, 2009 PART B [id number] ANGELLA MARTIN PATIENT MEDICARE (WNR) MEDICARE (M) PART A Feb 21, 2009 PART A [id number] ANGELLA MARTIN PATIENT MEDICARE (WNR) MEDICARE (M) PART B Feb 21, 2009 PART B [id number] ANGELLA MARTIN PATIENT [place] PLAN F MEDIC ARE SUPPL EMENT 2013 PLAN F [id number] [phone] ANGELLA MARTIN PATIENT [place] SUPPLEMEN [place] MEDIC ARE SUPPL EMENT 2013 PLAN F [id number] [phone] ANGELLA MARTIN PATIENT Selected Encounter This section includes the information on record at [place] for the Encounter. Date/Time Encounter Type Encounter Description Reason Pro vider Source Jan 03, 2025 11:16 AM Outpatient Encounter TELEPHONE TRIAGE IHE Encounter Template Text not used by [place] Plan of Treatment: Future Appointments (+ 6 months) and Future Tests (+/- 45 days) The Plan of Treatment section includes future care activities for the patient from all [place] [facility]. This section includes future appointments and future orders which are active, pending or scheduled. Future Appointments This section includes appointments that were scheduled to occur 6 months from the date of the Encounter, up to a maximum of 20 appointments. The data comes from all [place] treatment [facility]. Appointment Date/Time Appointment Type Appointme nt Facility Name Feb 02, 2025 08:00 PM AMBULATORY - MEDICINE [facility] Feb 07, 2025 02:00 PM AMBULATORY - MEDICINE [facility] Jun 13, 2025 08:40 AM AMBULATORY - MEDICINE [facility] Jun 20, 2025 10:00 AM AMBULATORY - MEDICINE [facility] Active, Pending, and Scheduled Orders This section includes a listing of several types of active, pending, and scheduled orders, including clinic medications orders, diagnostic test orders, procedure orders and consult orders; where the start date of the order is 45 days before the date of the Encounter or 45 days after the date of theEncounter. The data comes from all [facility]. Test Date/Time Test Type Test Details Facility Name Dec 20, 2024 10:07 AM Consult Order COMMUNITY CARE-HEMATOLOGY/ONC [id number] Utility Operator's Choice [facility] Dec 22, 2024 12:54 PM Consult Order COMMUNITY CARE-GI GENERAL [id number] Utility Operator's Choice [facility] Dec 22, 2024 05:03 PM Consult Order COMMUNITY CARE-SLEEP [id number] Utility Operator's Choice [facility] Encounter Notes: All associated encounter notes This section contains the clinical notes associated to the Encounter. Date/Time Encounter Note(s) Provider Source Jan 03, 2025 11:16 AM PHARMACY NOTE: LOCAL TITLE: PHARMACY CONTACT CENTER NOTE STANDARD TITLE: PHARMACY NOTE DATE OF NOTE: JAN 03, 2025@11:16 ENTRY DATE: JAN 03, 2025@11:16:59 AUTHOR: MARY KAY LAMBERT EXP COSIGNER: URGENCY: STATUS: COMPLETED MEDICATION RENEW [id number] SUBSTANCE: [facility]? /Patient Requesting renewal of medication: 1. GLUCOSE SENSOR FREESTYLE DONNELL 2 [id number] 2 12/24/2024 12/24/2023 11/24/2024 1 TATO BARRAZA 98.66 USE SENSOR EVERY 14 DAYS FOR BLOOD SUGAR MONITORING FOR CONTINUOUS Contact via: Phone Please send medication: Mail Disposition: Notification forwarded to provider for review of renewal request. /nichelle/ MARY KAY LAMBERT [facility] SUBSTATION OPERATOR HELPER GENERATION VISN [facility] Signed: 01/03/2025 11:17 Receipt Acknowledged By: * AWAITING SIGNATURE * TATO BARRAZA AKEEM R [facility]
--- OUTSIDE RECORDS SUMMARY | 2025-01-03 06:23 | XMS_ITS | Encounter Summary ---
Author Name [facility] [place] Organization [place] Address [address] [place] [address] Care Team Providers Care Undercover Cop Name Role Phone TATO BARRAZA Primary Care [...] PART A Feb 21, 2009 PART A [id number] [phone] ANGELLA MARTIN PATIENT MEDICARE (WNR) MEDICARE (M) PART B Feb 21, 2009 PART B [id number] ANGELLA MARTIN PATIENT MEDICARE (WNR) MEDICARE (M) PART A Feb 21, 2009 PART A [id number] [phone] ANGELLA MARTIN PATIENT MEDICARE (WNR) MEDICARE (M) PART A Feb 21, 2009 PART A [id number] ANGELLA MARTIN PATIENT MEDICARE (WNR) MEDICARE (M) PART B Feb 21, 2009 PART B [id number] [phone] ANGELLA MARTIN PATIENT MEDICARE (WNR) MEDICARE (M) PART B Feb 21, 2009 PART B [id number] MARIOANGELLA Livier PATIENT [place]ANS[place] [employer] [place] MED[place] PLAN F MEDIC ARE SUPPL EMENT 2013 PLAN F [id number] [phone] ANGELLA MARTIN PATIENT [employer]ANS[place] [employer] [place] MEDICARE SUPPLEMEN [place] MEDIC ARE SUPPL EMENT 2013 PLAN F [id number] [phone] ANGELLA MARTIN PATIENT Selected Encounter This section includes the information on record at [place] for the Encounter. Date/Time Encounter Type Encounter Description Reason Pro vider Source Jan 03, 2025 11:23 AM Outpatient Encounter ADMIN PAT ACTIVTIES (MASNONCT) IHE Encounter Template Text not used by [place] Plan of Treatment: Future Appointments (+ 6 months) and Future Tests (+/- 45 days) The Plan of Treatment section includes future care activities for the patient from all [place] treatmentfacilities. This section includes future appointments and future orders which are active, pending or scheduled. Future Appointments This section includes appointments that were scheduled to occur 6 months from the date of the Encounter, up to a maximum of 20 appointments. The data comes from all [place] treatment [facility]. Appointment Date/Time Appointment Type Appointme nt Facility Name Feb 02, 2025 08:00 PM AMBULATORY - MEDICINE [facility] Feb 07, 2025 02:00 PM AMBULATORY - MEDICINE [facility] Jun 13, 2025 08:40 AM AMBULATORY - MEDICINE [facility] Jun 20, 2025 10:00 AM AMBULATORY - MEDICINE [facility] Active, Pending, and Scheduled Orders This section includes a listing of several types of active, pending, and scheduled orders, including clinic medications orders, diagnostic test orders, procedure orders and consult orders; where the start date of the order is 45 days before the date of the Encounter or 45 days after the date of theEncounter. The data comes from all [place] treatment [facility]. Test Date/Time Test Type Test Details Facility Name Dec 20, 2024 10:07 AM Consult Order COMMUNITY CARE-HEMATOLOGY/ONC [id number] Cons Bulb Grader's Choice [facility] Dec 22, 2024 12:54 PM Consult Order COMMUNITY CARE-GI GENERAL [id number] Cons Bulb Grader's Choice [facility] Dec 22, 2024 05:03 PM Consult Order COMMUNITY CARE-SLEEP [id number] Cons Bulb Grader's Choice [facility] Encounter Notes: All associated encounter notes This section contains the clinical notes associated to the Encounter. Date/Time Encounter Note(s) Provider Source Jan 03, 2025 11:23 AM ADMINISTRATIVE NOT E: LOCAL TITLE: CCC: SCHEDULING ADMINISTRATION STANDARD TITLE: ADMINISTRATIVE NOTE DATE OF NOTE: JAN 03, 2025@11:23:24 ENTRY DATE: JAN 03, 2025@11:23:25 AUTHOR: BENJAMIN LOMAX EXP COSIGNER: URGENCY: STATUS: COMPLETED Caller Verification Call Back Number: [phone] Emergency Contact: ILANA MARTIN Emergency Contact Caller/Recipient Relation to Patient: Other If Other Describe Relation to Patient: DAUGHTER Caller Name: ILANA MARTIN Scheduling Patient Expects Callback: Yes Administrative Administrative Note Reason: Other Administrative Note Comments: ILANA MARTIN THE DAUGHTER OF THE IS REQUESTING A CALL BACK REGARDING MEDICATION FOR THE TO HELP HIM SLEEP. PLEASE CONTACT ILANA @ [phone] REGARDING MEDICATION REQUEST IMPORTANT: This note was created by [facility] Clinical Contact Center staff. Please do not alert the staff member by adding them as a signer for future communications. Alerts are not monitored by this user. /nichelle/ BENJAMIN LOMAX Signed: 01/03/2025 11:23 Receipt Acknowledged By: 01/06/2025 10:58 /nichelle/ NICHOLAS LION LPN [facility] BENJAMIN LOMAX [facility]
--- OUTSIDE RECORDS SUMMARY | 2025-01-03 15:30 | XMS_ITS | Encounter Summary ---
Author Organization [facility] Address [address] [place] [address] Care Team Providers Care Newspaper Publisher Name Role Phone Paula Sandoval MD Primary Care Provider + [phone] Reason for Visit * Reason Comments Follow Up Encounter Details Date Type Department Care Team (Late st Contact Info) Description 01/03/2025 3:30 PM CDT Video Visit [facility] Cancer and Hematology [place] [address] [address] Iqra Brito, MARCELLO [address] [address] CLL (chronic lymphocytic leukemia) ([facility]/HCC) (Primary Dx); ESRD (end stage renal disease) on dialysis ([facility]/HCC); Encounter for education; Gastric ulcer, unspecified chronicity, unspecified whether gastric ulcer hemorrhage or perforation present Social History Tobacco Use Types Packs/Day Years Used Date Smoking Tobacco: Former Cigarettes Smokeless Tobacco: Never Tobacco Cessation:Counseling Given: Not Answered Alcohol Use Standard Drinks/Week Comments Not Currently 0 (1 standard drink = 0.6 oz pur e alcohol) holidays/ special occasions Sex and Gender Information Value Date Recorded Sex Assigned at Not on file Legal Sex Male 12:42 PM CDT Gender Identity Not on file Sexual Orientation Not on file documented as of this encounter Progress Notes * JacquelinekeaganAddy cunningham - 01/03/2025 3:19 PM CDT TOBACCO COUNSELING He is not a tobacco/nicotine user. Patient's identity confirmed yes Patient gave verbal consent to have these services billed to their insurance and expressed understanding that co-insurance and deductible may apply: yes Patient was located at home. This encounter was completed via two-way synchronous audio and video communication. * Iqra Brito NP - 01/03/2025 3:18 PM CDT Images from the original note were not included. [facility] CANCER AND HEMATOLOGY CONSULTATION NOTE Visit Date: 01/03/2025 Vaelnte Renae [id number] ONCOLOGIST: Dr. Umm Dotson PCP: Paula Sandoval MD REFERRING PROVIDER: Dr. Jazmin Lema, hospitalist DATE OF DIAGNOSIS: 12/10/2024- recurrence. 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 He had bleeding in past from this CLL induce ulcer He has been tried with multiple different medications and did not tolerate them well prior VV for education pirtobrutinib (Jaypirca) He lives in [place] Dtr Brooke is also present He recently went to ED for SOB On HD //Fri, EPO x 3 per week Had fistula placed Needing an ICD and PPM battery changed. Needing to have tunneled line removed in order for this to happen Scheduled to have HD catheter removed on 01/05 Daughter has reached to Dr Alejandro for updated on scheduling since now cath removal is scheduled PATHOLOGY: [id number] Order: [id number] Collected 12/10/2024 11:00 Status: Final result Test [...] pylori by immunohistochemistry REV: GERMAIN Sandoval MD [id number] Family History Problem Relation Name Age of [...] ESOPHAGOGASTRODUODENOSCOPY performed by Clinton Ascencio DO at [facility] ENDOSCOPY HX PACEMAKER PLACEMENT IN CRTJ ARVEN FSTL XCP DIR ARVEN ANAST NONAUTOG GRF Right 11/29/2024 ARTERIOVENOUS GRAFT INSERTION performed by Klarissa Flowers MD at [facility] MAIN OR is allergic to febuxostat, allopurinol, iodinated contrast media, iodine, levofloxacin, metformin, and quetiapine. Current Outpatient Medications Medication folic acid (FOLVITE) 1 mg tablet pirtobrutinib (Jaypirca) 50 mg Tablet pantoprazole (PROTONIX) 40 mg Tablet, Delayed Release (E.C.) oxyCODONE-acetaminophen (PERCOCET) 5-325 mg tablet epoetin janet (EPOGEN INJECTION) carvediloL (COREG) 3.125 [...] mg capsule fluticasone propionate (FLONASE) 50 mcg/spray [place], Suspension nasal inhaler acetaminophen (TYLENOL) 325 mg tablet finasteride (PROSCAR) 5 mg tablet cholecalciferol, Vitamin D3, (VITAMIN D3) 25 mcg (1,000 unit) Capsule insulin glargine (LANTUS) 100 unit/mL pen syringe tamsulosin (FLOMAX) 0.4 mg capsule No current facility-administered medications for this visit. [...] HEENT: No blurry or double vision, not CONFEDERATED SAL[place], no neck pain, no dysphasia. Denies drainage, [...] regarding depression/anxiety PHYSICAL EXAM: ECOG PERFORMANCE STATUS: There were no vitals taken for this visit. 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 Hypertension I10 Stage 4 chronic kidney disease ([facility]) N18.4 Transient ischemic attack G45.9 Chronic lymphocytic leukemia ([facility]) C91.10 Type 2 diabetes mellitus with kidney complication, with long-term current use of insulin ([facility]) E11.29, Z79.4 HLD (hyperlipidemia) E78.5 CAD (coronary artery disease) I25.10 History of coronary angioplasty with insertion of stent Z95.5 Hx of CABG Z95.1 Benign prostatic hyperplasia without lower urinary tract symptoms N40.0 Hemoptysis R04.2 Community acquired pneumonia of right upper lobe of lung J18.9 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 Acute hypoxic respiratory failure ([facility]) J96.01 Anemia D64.9 Thrombocytopenia D69.6 Moderate protein malnutrition E44.0 Dilated cardiomyopathy ([facility]) I42.0 Acute combined systolic and diastolic congestive heart failure ([facility]) I50.41 Acute cystitis N30.00 Severe sepsis with septic shock ([facility]) A41.9, R65.21 ESRD (end stage renal disease) on dialysis ([facility]) N18.6, Z99.2 Metabolic acidosis E87.20 Elevated troponin level R79.89 Chronic combined systolic and diastolic CHF (congestive heart failure) ([facility]) I50.42 Ischemic dilated cardiomyopathy ([facility]) I25.5, I42.0 Melena K92.1 Acute blood loss anemia D62 ASSESSMENT & PLAN: 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 Nila discussed new treatment of Pirtobrutinib He is on dialysis. He has had multiple side effects to multiple BTK inhibitors. Plan to start at the lowest dose and move upwards. Dosing is at 200 mg/day. Plan to start at 50 mg daily and see how he does. Reason for treatment is gastric ulcers caused by CLL Recent labs reviewed from [place], hemoglobin improved to 9's, platelet up to 95, WBC 12, lymphocytes 70-80% XRAY showed some fluid He is interested in trying Pirtobrutinib but prefers to hold off until after ICD and PPM battery changed. Needing to have tunneled line removed in order for this to happen-->scheduled to have HD catheter removed on 01/05. Daughter has reached out to Dr Villatoro to see about scheduling of battery change 2. Hx CLL- Dx 2009 3. Thrombocytopenia 4. Dilated cardiomyopathy, chronic combined systolic and diastolic CHF 5. ESRD on dialysis-->rubio Ward Sat Hemodialysis: There are no dosage adjustments provided in the mineralogy professor's labeling; the effect on pirtobrutinib pharmacokinetics is unknown. 6. History of blood loss anemia due to CLL induced ulcers-->H/H improved (see lab in My [facility]) Schedule They would like to keep upcoming appt for now. He will do labs locally. If not started on oral therapy they may change to VV On the day of the visit, I spent 50 minutes providing care to this patient including Preparing to see the patient, Obtaining and/or reviewing separately obtained history, Performing a medically appropriate examination and/or evaluation, Counseling and educating the patient/family/caregiver, Ordering medications, tests or procedures, and Documenting clinical information in the medical record. documented in this encounter Plan of Treatment Upcoming Encounters Date Type Department Care Team (Latest Contact Info) Description 01/17/2025 11:45 AM CDT Appointment [facility] [address] [facility] [address] [place] [phone] 01/19/2025 3:00 PM CDT Office Visit [facility] Cancer and Hematology [place] [address] [facility] 2 [place] [address] Iqra Brito NP [address] [address] 01/21/2025 11:00 AM CDT Office Visit [facility] [address] [facility] [address] [place] [address] Lyndsey Dorsey NP [address] [place] [address] 02/07/2025 2:00 PM CDT Hospital Encounter [facility] Endoscopy [address] [place] [phone] Clinton Ascencio, DO [address] [address] 02/07/2025 2:00 PM CDT - 02/07/2025 2:20 PM CDT Surgery [facility] [address] [place] [address] Clinton Ascencio, DO [address] [phone] ESOPHAGOGASTRODUODENOSCOPY 03/18/2025 11:30 AM CDT Office Visit [facility] Vascular Surgery [place] [address] [facility] [address] [place] [phone] Klarissa Flowers MD [address] [place] [address] Scheduled Orders Name Type Priority Associated Diagnoses Orde r Schedule CBC WITH DIFFERENTIAL Lab Routine CLL (chronic lymphocytic leukemia) ([facility]/HCC) Expected: 01/03/2025, Expires: 01/03/2026 COMPREHENSIVE METABOLIC PANEL Lab Routine CLL (chronic lymphocytic leukemia) ([facility]/HCC) Expected: 01/03/2025, Expires: 01/03/2026 LACTATE DEHYDROGENASE Lab Routine CLL (chronic lymphocytic leukemia) ([facility]/HCC) Expected: 01/03/2025, Expires: 01/03/2026 URIC ACID Lab Routine CLL (chronic lymphocytic leukemia) ([facility]/HCC) Expected: 01/03/2025, Expires: 01/03/2026 Scheduled Procedures Name Priority Associated Diagnoses Date/Ti me ESOPHAGOGASTRODUODENOSCOPY gastric ulcer 02/07/2025 2:00 PM CDT documented as of this encounter Visit Diagnoses Diagnosis CLL (chronic lymphocytic leukemia) ([facility])- Primary Chronic lymphoid leukemia, without mention of having achieved remission ESRD (end stage renal disease) on dialysis ([facility]) End stage renal disease Encounter for education Gastric ulcer, unspecified chronicity, unspecified whether gastric ulcer hemorrhage or perforation present documented in this encounter Care Teams Newspaper Publisher Relationship Specialty Start Date End Date Paula Sandoval MD [address] [place] [phone] PCP - General Family Practice 10/18/24 documented as of this encounter
--- OUTSIDE RECORDS SUMMARY | 2025-01-04 05:53 | XMS_ITS | Encounter Summary ---
Author Name [place] Address [address] [place] [address] Care Team Providers Care Retail Analytics Manager Name Role Phone TATO BARRAZA Primary Care [...] PART A Feb 21, 2009 PART A [id number] ANGELLA RENAE PATIENT MEDICARE (WNR) MEDICARE (M) PART B Feb 21, 2009 PART B [id number] [phone] ANGELLA RENAE PATIENT MEDICARE (WNR) MEDICARE (M) PART A Feb 21, 2009 PART A [id number] [phone] ANGELLA RENAE PATIENT MEDICARE (WNR) MEDICARE (M) PART B Feb 21, 2009 PART B [id number] ANGELLA RENAE PATIENT MEDICARE (WNR) MEDICARE (M) PART A Feb 21, 2009 PART A [id number] ANGELLA RENAE PATIENT MEDICARE (WNR) MEDICARE (M) PART B Feb 21, 2009 PART B [id number] ANGELLA RENAE PATIENT [place]ANS[employer] [employer] [place] MED[place] PLAN F MEDIC ARE SUPPL EMENT 2013 PLAN F [id number] [phone] ANGELLA RENAE PATIENT TRANS[place]ERI [place] LIFE [place] MEDICARE SUPPLEMEN [place] MEDIC ARE SUPPL EMENT 2013 PLAN F [id number] [phone] ANGELLA RENAE PATIENT Selected Encounter This section includes the information on record at [place] for the Encounter. Date/Time Encounter Type Encounter Description Reason Pro vider Source Jan 04, 2025 10:53 AM Outpatient Encounter COMMUNITY CARE CONSULT IHE Encounter Template Text not used by [place] Plan of Treatment: Future Appointments (+ 6 months) and Future Tests (+/- 45 days) The Plan of Treatment section includes future care activities for the patient from all [place] treatmentfacilities. This section includes future appointments and future orders which are active, pending or scheduled. Future Appointments This section includes appointments that were scheduled to occur 6 months from the date of the Encounter, up to a maximum of 20 appointments. The data comes from all [place] treatment [facility]. Appointment Date/Time Appointment Type Appointme nt Facility Name Feb 02, 2025 08:00 PM AMBULATORY - MEDICINE [facility] Feb 07, 2025 02:00 PM AMBULATORY - MEDICINE [facility] Jun 13, 2025 08:40 AM AMBULATORY - MEDICINE [facility] Jun 20, 2025 10:00 AM AMBULATORY MEDICINE [facility] Active, Pending, and Scheduled Orders This section includes a listing of several types of active, pending, and scheduled orders, including clinic medications orders, diagnostic test orders, procedure orders and consult orders; where the start date of the order is 45 days before the date of the Encounter or 45 days after the date of theEncounter. The data comes from all [facility]. Test Date/Time Test Type Test Details Facility Name Dec 20, 2024 10:07 AM Consult Order COMMUNITY CARE-HEMATOLOGY/ONC [id number] Cons Occupational Safety And Health Manager's Choice [facility] Dec 22, 2024 12:54 PM Consult Order COMMUNITY CARE-GI GENERAL [id number] Cons Occupational Safety And Health Manager's Choice [facility] Dec 22, 2024 05:03 PM Consult Order COMMUNITY CARE-SLEEP [id number] Cons Occupational Safety And Health Manager's Choice [facility] Encounter Notes: All associated encounter notes This section contains the clinical notes associated to the Encounter. Date/Time Encounter Note(s) Provider Source Jan 04, 2025 10:53 AM LETTERS: LOCAL TITLE: COMMUNITY CARE-REFERRAL PB (AUTO-PRINT) STANDARD TITLE: LETTERS DATE OF NOTE: JAN 04, 2025@10:53:31 ENTRY DATE: JAN 04, 2025@10:53:31 AUTHOR: XI OAKLEY COSIGNER: URGENCY: STATUS: COMPLETED Nisa Renae [address] [place], [place] [address] Dear NISA RENAE, Your VA provider has referred you to a provider within the community for care. Your medical care for GI GENERAL has been authorized with the Community Care Provider listed below. DO NOT REPORT TO THE [facility] Provider info: [facility] [address] [facility] [address] [place] [address] P: [phone] An appointment has been scheduled for you on: 02/07/2025 (Time to be determined closer to procedure date) Auth #: [id number] Referral Issue Date: 12/28/2024 Expiration Date: 06/07/2025 If you are unable to keep this appointment or the appointment is no longer needed, please contact the community provider above for notification/rescheduling and then call the [facility] [place] Community Care Office at [phone] ext [phone]. If you need additional care/services not mentioned above, please contact your primary care provider for a new referral. Co-Payments: If you are required to pay a VA co-payment, you will be billed by the [place] for each authorized visit that you attend. However, you are NOT REQUIRED to make co-payments to a Community Provider. Prescriptions: Your community provider may write a prescription related to the authorized care. If there is an immediate need for your prescriptions from your community care visit, you may be able to get up to a 14-day fill of your prescription at your own expense for the cost of the medication, and may seek reimbursement from the VA. If you require more than a 14-day supply or if the prescribed medication is not immediately needed, your community provider will send a prescription to a VA pharmacy so that the VA can provide you with your routine medication. In-network locations can be found at https://www.va.gov/find-loc ations/ Medical Devices: Your community provider may recommend that medical devices, adapted equipment, or other items be provided for the treatment or rehabilitation of your medical condition. Veterans are generally required to obtain these items through the Prosthetics and Sensory Aids Service (PSAS) in your referring facility. Emergency/Inpatient Services: You, your community provider, or your family must provide notification within 72hr or ER visit and/or admission by [phone]. Thank you for the opportunity to serve you and for your service to our great nation! [facility] Care in the Community [address] [facility]
--- OUTSIDE RECORDS SUMMARY | 2025-01-04 11:30 | XMS_ITS | Encounter Summary ---
Author Organization [facility], [facility] Address [address] [facility] [address] [place] [address] Phone Care Team Providers Care Laborer Vegetable Farm Name Role Phone Alejandro Macias MD Primary Care Provider + [phone] Encounter Details Date Type Department Care Team (Late st Contact Info) Description 01/04/2025 11:30 AM CDT Procedure visit [facility], [facility] [address] [place] [address] Fabiola Puente CATERING SALES MANAGER [address] [place] [address] End stage renal disease (HCC) (Primary Dx) Social History Tobacco Use Types Packs/Day Years Used Date Smoking Tobacco: Former Cigarettes Q uit: 06/23/1989 Smokeless Tobacco: Never Alcohol Use Standard Drinks/Week Comments Yes 0 (1 standard drink = 0.6 oz pur e alcohol) Sex and Gender Information Value Date Recorded Sex Assigned at Not on file Legal Sex Male 12:42 PM EST Gender Identity Not on file Sexual Orientation Not on file documented as of this encounter Progress Notes * Fabiola Puente NP - 01/04/2025 11:30 AM CDT Images from the original note were not included. Indication for Removal: AVF NON-INCISION JAMIE REMOVAL: The dressing overlying the catheter was removed. Any sutures that were securing the catheter were also removed. The area overlying the subcutaneous catheter was cleansed with ChloraPrep. Sterile iris scissors were used to enlarge the exit site to allow for easier removal of the catheter. Gentle traction was applied to the external portion of the catheter until the cuff was mobilized. The patient was then instructed to perform a Valsalva maneuver. While the patient was so doing, the dialysis catheter was removed. External pressure was applied over the jugular vein site until hemostasis was achieved. A pressure dressing was then applied over the site. The skin exit site was also covered with a dressing. The entire catheter was removed intact. The patient tolerated the procedure well. Post Removal Care Instructions: 2 gauze dressings have been applied, one to Right IJ site and one to exit site. Patient instructed to hold direct pressure to IJ site today if needs to cough or bear down. If any bleeding noted at exit site then need to hold direct pressure to IJ site until hemostasis achieved. May remove dressingstomorrow. Leave steri- strips to IJ site until these fall off on their own. documented in this encounter Plan of Treatment Not on file documented as of this encounter Visit Diagnoses Diagnosis End stage renal disease (HCC)- Primary End stage renal disease documented in this encounter Care Teams Laborer Vegetable Farm Relationship Specialty Start Date End Date Alejandro Macias MD [address] [place] [address] PCP - General Family Medicine 12/15/18 documented as of this encounter
--- OUTSIDE RECORDS SUMMARY | 2025-01-07 04:27 | XMS_ITS | Encounter Summary ---
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 Name Role Phone TATO BARRAZA Primary [...] PART A Feb 21, 2009 PART A [id number] ANGELLA RENAE PATIENT MEDICARE (WNR) MEDICARE (M) PART B Feb 21, 2009 PART B [id number] [phone] ANGELLA RENAE PATIENT MEDICARE (WNR) MEDICARE (M) PART A Feb 21, 2009 PART A [id number] [phone] ANGELLA RENAE PATIENT MEDICARE (WNR) MEDICARE (M) PART B Feb 21, 2009 PART B [id number] [phone] ANGELLA RENAE PATIENT MEDICARE (WNR) MEDICARE (M) PART A Feb 21, 2009 PART A [id number] [phone] ANGELLA RENAE PATIENT MEDICARE (WNR) MEDICARE (M) PART B Feb 21, 2009 PART B [id number] ANGELLA RENAE PATIENT [employer] [place] [employer] PLAN F MEDIC ARE SUPPL EMENT 2013 PLAN F [id number] [phone] ANGELLA RENAE PATIENT [employer] [place] [employer] SUPPLEMEN [place] MEDIC ARE SUPPL EMENT 2013 PLAN F [id number] [phone] ANGELLA RENAE PATIENT Selected Encounter This section includes the information on record at [place] for the Encounter. Date/Time Encounter Type Encounter Description Reason Pro vider Source Jan 07, 2025 09:27 AM Outpatient Encounter COMMUNITY CARE CONSULT IHE Encounter Template Text not used by [place] Plan of Treatment: Future Appointments (+ 6 months) and Future Tests (+/- 45 days) The Plan of Treatment section includes future care activities for the patient from all [place] treatmentfacilities. This section includes future appointments and future orders which are active, pending or scheduled. Future Appointments This section includes appointments that were scheduled to occur 6 months from the date of the Encounter, up to a maximum of 20 appointments. The data comes from all [place] treatment [facility]. Appointment Date/Time Appointment Type Appointme nt Facility Name Feb 02, 2025 08:00 PM AMBULATORY - MEDICINE [facility] Feb 07, 2025 02:00 PM AMBULATORY - [facility] Jun 13, 2025 08:40 AM AMBULATORY - MEDICINE [facility] Jun 20, 2025 10:00 AM AMBULATORY - MEDICINE [facility] Active, Pending, and Scheduled Orders This section includes a listing of several types of active, pending, and scheduled orders, including clinic medications orders, diagnostic test orders, procedure orders and consult orders; where the start date of the order is 45 days before the date of the Encounter or 45 days after the date of theEncounter. The data comes from all [facility]. Test Date/Time Test Type Test Details Facility Name Dec 20, 2024 10:07 AM Consult Order COMMUNITY CARE-HEMATOLOGY/ONC [id number] [facility] Counselor's Choice [facility] Dec 22, 2024 12:54 PM Consult Order COMMUNITY CARE-GI GENERAL [id number] [facility] Counselor's Choice [facility] Dec 22, 2024 05:03 PM Consult Order COMMUNITY CARE-SLEEP STUDY-[id number] [facility] Rehabilitation Services Counselor's Choice [facility] Encounter Notes: All associated encounter notes This section contains the clinical notes associated to the Encounter. Date/Time Encounter Note(s) Provider Source Jan 07, 2025 09:27 AM LETTERS: LOCAL TITLE: COMMUNITY CARE-REFERRAL PB (AUTO-PRINT) STANDARD TITLE: LETTERS DATE OF NOTE: JAN 07, 2025@09:27:38 ENTRY DATE: JAN 07, 2025@09:27:38 AUTHOR: ALEXIS WATERMAN COSIGNER: URGENCY: STATUS: COMPLETED Nisa Renae [address] [place], [place] [address] Dear NISA RENAE, Your VA provider has referred you to a provider within the community for care. Your medical care for SLEEP STUDY has been authorized with the Community Care Provider listed below. DO NOT REPORT TO THE [facility] Provider info: An appointment has been scheduled for you on: Feb 02, 2025 08:00 PM Office Name: [facility] Address: [address] [place] [address] Address: [place] [address] Auth #: [id number] Referral Issue Date: 12/29/2024 Expiration Date: 08/01/2025 If you are unable to keep this appointment or the appointment is no longer needed, please contact the community provider above for notification/rescheduling and then call the [facility] [place] Community Care Office at [phone] ext [phone]. If you need additional care/services not mentioned above, please contact your primary care provider for a new referral. Co-Payments: If you are required to pay a VA co-payment, you will be billed by the [place] for each authorized visit that you attend. [...] medication. In-network locations can be found at https://www.in.gov/find-loc ations/ Medical Devices: Your community provider may [...] 72hr or ER visit and/or admission by [phone]. Thank you for the opportunity to serve you and for your service to our great [place]! Lawson Burkett [facility] Care in the Community [address] [facility] [place] [address] [address] [facility]
--- OUTSIDE RECORDS SUMMARY | 2025-01-10 04:10 | XMS_ITS | Continuity of Care Document ---
Author Name [facility] Organization [facility] Care Team Providers Care Electronic Installer Name Role Phone [facility] Unavailable Unavailable Problems Combined list of problems from Department of Defense and Veterans Affairs facilities. It does not include entries that were removed or entered in error. Problem Status Onset Date Problem Type Date of Resolution Comments Source Allergic rhinitis Active Condition [place] [facility] Bilateral tinnitus Active Condition [place] [facility] BPH - benign prostatic hyperplasia Active Condition [place] [facility] Cardiac pacemaker in situ Active Condition [facility] [facility] [facility] Cardiomyopathy Active Condition [place] [facility] Carotid artery narrowing Active Condition Mar 07, 2021 Entered By: TATO BARRAZA Comment: 50-60% bilaterally [facility] [facility] Cerebrovascular accident Active Condition Mar 07, 2021 Entered By: TATO BARRAZA Comment: right hemiparesis (COVID) 12/2020 [facility] [facility] [facility] Chronic congestive heart failure Active Condition Apr 26, 2024 Entered By: TATO BARRAZA Comment: combined [facility] [facility] Chronic kidney disease stage 4 Active Condition Apr 26, 2024 Entered By: TATO BARRAZA Comment: hemodialysis T-Th-Sat [place] [facility] CLL - Chronic lymphocytic leukemia (SNOMED CT 43559461) [facility] Condition [facility] Coronary artery disease (SNOMED CT 07638851) Active Condition [facility] Diabetic nephropathy Active Condition [facility] Diabetic polyneuropathy Active Condition [facility] [facility] Exposure to potentially hazardous substance Active Condition [facility] - Gastro-esophageal reflux disease Active Condition [place] [facility] Hearing loss Active Condition [place] [facility] HLD - Hyperlipidemia (SNOMED CT 70123426) Active Condition [facility] HTN - Hypertension (SNOMED CT 42756646) Active Condition [facility] [facility] Multiple actinic keratoses involving face Active Condition [place] [facility] Pain of left elbow joint Active Condition [place] [facility] Renal mass Active Condition Dec 31, 2 024 Entered By: TATO BARRAZA Comment: left; 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 Sensorineural hearing loss of bilateral ears Active Condition [facility] [facility] Sick sinus syndrome Active Condition [facility] [facility] TIA Active Condition [place] [facility] Type 2 diabetes mellitus (SNOMED CT 74424850) Active Condition [place] [facility] Acute pancreatitis Inactive Condition 09/04/2020 [place] [facility] Arrhythmia * (ICD-9-CM 427.9) Inactive Condition 07/04/2016 [place] [facility] Family History of Diabetes Mellitus (ICD-9-CM V18.0) Inactive Condition 07/04/2016 [facility] [facility] Hypertensive disorder (SNOMED CT 97821545) Inactive Condition 07/04/2016 [facility] Laboratory Examination Ordered as part of a Routine General Medical Examination Inactive Condition 07/04/2016 [facility] Routine General Medical Examination at a Health Care Facility * Inactive Condition 07/04/2016 [facility] Diagnosis: ICD-10-CM 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 diabetes mellitus with unspecified complications Active Diagnosis [facility] Diagnosis: ICD-10-CM Z46.1 Encounter for fitting and adjustment of hearing aid Active Diagnosis [place] [facility] Diagnosis: ICD-10-CM R09.81 Nasal congestion Active Diagnosis [facility] Diagnosis: ICD-10-CM I50.9 Heart failure, unspecified Active Diagnosis [facility] Diagnosis: ICD-10-CM E78.5 Hyperlipidemia, unspecified Active Diagnosis [facility] Diagnosis: ICD-10-CM R93.89 Abnormal findings on dx imaging of oth body structures Active Diagnosis [facility] Diagnosis: ICD-10-CM H90.3 Sensorineural hearing loss, bilateral Active Diagnosis [place] [facility] Diagnosis: ICD-10-CM Z13.9 Encounter for screening, unspecified Active Diagnosis [place] [facility] Diagnosis: ICD-10-CM Z13.5 Encounter for screening for eye and ear disorders Active Diagnosis [facility] Diagnosis: ICD-10-CM 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 Diagnosis [facility] Diagnosis: ICD-10-CM Z71.89 Other specified counseling Active Diagnosis [facility] Diagnosis: ICD-10-CM H90.5 Unspecified sensorineural hearing loss Active Diagnosis [facility] Diagnosis: ICD-10-CM R10.9 Unspecified abdominal pain Active Diagnosis [facility] Medications Combined list of outpatient medications [...] A DAY ORAL ACTIVE TATO BARRAZA 2023 [facility] ATORVASTATI N CA 80MG TAB TAKE ONE TABLET BY MOUTH EVERY EVENING FOR HIGH CHOLESTE ROL TAKE ORALLY WITH EVENING MEAL ORAL ACTIVE 04/27/2025 [id number] 5 RADHA PINK 2023 90 [facility] CARVEDILOL 6.25MG TAB TAKE ONE TABLET BY MOUTH TWICE A DAY FOR HEART FAILURE TAKE WITH FOOD. ORAL ACTIVE 12/23/2025 [id number] 5 TATO BARRAZA 2024 180 [facility] CARVEDILOL 6.25MG TAB TAKE ONE-HALF TABLET BY MOUTH TWICE A DAY FOR HEART FAILURE TAKE WITH FOOD. ORAL DISCONT INUED (EDIT) 04/27/2025 [id number] 5 TATO BARRAZA 2023 90 [facility] CHOLECALCIF ZULEYKA 50MCG (2,000UNIT) TAB TAKE TWO TABLETS BY MOUTH ONCE A DAY FOR VITAMIN D SUPPLEME NTATION ORAL ACTIVE 04/27/2025 [id number] 5 TATO BARRAZA 2023 180 [facility] CHOLECALCIF ZULEYKA 50MCG (2,000UNIT) TAB TAKE TWO TABLETS BY MOUTH ONCE A DAY FOR VITAMIN D SUPPLEME NTATION ORAL DISCONT INUED 04/07/2024 [id number] JENY GAMA 10/18/ 2023 180 [place] [facility] CLOPIDOGREL BISULFATE 75MG TAB TAKE ONE TABLET BY MOUTH ONCE A DAY TO THIN BLOOD ORAL 02/06/2024 [id number] 4 TATO BARRAZA 2022 90 [facility] DICLOFENAC NA 1% GEL,TOP APPLY 2 GM TO AFFECTED AREA(S) ONCE A DAY FOR PAIN/INF LAMMATIO N; NOT MORE THAN 16 GRAMS DAILY TO ANY LOWER EXTREMIT Y JOINT. NOT MORE THAN 8 GRAMS DAILY TO ANY UPPER EXTREMIT Y JOINT. MAX 32GM/DAY OVER ALL JOINTS. (MEASURE DOSE WITH RULER ATTACHED INSIDE BOX) TOPICA L ACTIVE 04/27/2025 [id number] 5 TATO BARRAZA 2023 300 [facility] FINASTERIDE 5MG TAB TAKE ONE TABLET BY MOUTH ONCE A DAY SWALLOW WHOLE, DO NOT CRUSH, SPLIT, OR CHEW. ORAL ACTIVE 09/18/2025 [id number] 5 RADHA PINK 2024 90 [facility] FINASTERIDE 5MG TAB TAKE ONE TABLET BY MOUTH ONCE A DAY SWALLOW WHOLE, DO NOT CRUSH, SPLIT, OR CHEW. ORAL DISCONT INUED 08/20/2024 [id number] 4 TATO BARRAZA 2023 90 [facility] FISH OIL 1000MG (500MG DHA/EPA) CAP,ORAL TAKE 2 CAPSULES BY MOUTH TWICE A DAY WITH MEALS ORAL ACTIVE RADHA PINK 2023 [facility] FLUTICASONE PROPIONATE 50MCG/SPRAY SOLN,NASAL, 16GM INSTILL 1 SPRAY IN NOSTRIL( S) ONCE A DAY FOR ALLERGIE S (MUST BE USED DIRECTED FOR MINIMUM OF 21 DAYS TO PROVIDE ADEQUATE BENEFITS ) NASAL ACTIVE 09/18/2025 [id number] RADHA PINK 2024 3 [facility] FLUTICASONE PROPIONATE 50MCG/SPRAY SOLN,NASAL, 16GM INSTILL 1 SPRAY IN NOSTRIL( S) ONCE A DAY FOR ALLERGIE S (MUST BE USED DIRECTED FOR MINIMUM OF 21 DAYS TO PROVIDE ADEQUATE BENEFITS ) NASAL DISCONT INUED 08/20/2024 [id number] 4 TATO BARRAZA 2023 3 [facility] FOLIC ACID 1MG TAB TAKE ONE TABLET BY MOUTH ONCE A DAY FOR FOLIC ACID SUPPLEME NTATION ORAL ACTIVE 06/08/2025 [id number] RADHA PINK 2023 100 [facility] FUROSEMIDE 40MG TAB TAKE ONE TABLET BY MOUTH EVERY MORNING FOR FLUID RETENTIO N (EDEMA) TAKE DAILY EXCEPT DIALYSIS DAYS ORAL DISCONT INUED (EDIT) 04/27/2025 [id number] 4 JOESPHRADHA 2023 90 [facility] FUROSEMIDE 80MG TAB TAKE ONE TABLET BY MOUTH EVERY MORNING AND EVENING ORAL ACTIVE 01/05/2026 [id number] 5 RUBY ALEXANDRE 2024 180 [place] [facility] FUROSEMIDE 80MG TAB TAKE ONE TABLET BY MOUTH TWICE A DAY FOR FLUID RETENTIO N (EDEMA) TAKE DAILY EXCEPT DIALYSIS DAYS ONLY ON NONDIALY SIS DAYS (FRIDAY, , FRIDAY, FRIDAY ORAL DISCONT INUED BY PROVIDE R 04/27/2025 [id number] 4 TATO BARRAZA 2023 180 [facility] INSULIN REG HUMAN 100 U/ML INJ NOVOLIN R INJECT 15 UNITS UNDER THE SKIN THREE TIMES A DAY BEFORE MEALS FOR DIABETES ADMINIST ER 30 MINUTES BEFORE FOOD DIRECTED . DISCARD 30 DAYS AFTER OPENING. SUBCUT ANEOUS ACTIVE 09/18/2025 [id number] RADHA PINK 2024 5 [facility] INSULIN REG HUMAN 100 U/ML INJ NOVOLIN R INJECT 10 UNITS UNDER THE SKIN EVERY MORNING BEFORE A MEAL FOR DIABETES ADMINIST ER 30 MINUTES BEFORE FOOD DIRECTED . DISCARD 30 DAYS AFTER OPENING. PER SLIDING SCALE ADMINIST ER 30 MINUTES BEFORE FOOD DIRECTED . DISCARD 30 DAYS AFTER OPENING. PER SLIDING SCALE SUBCUT ANEOUS 04/25/2024 [id number] 4 RADHA PINK 2023 5 [facility] INSULIN,GLA RGINE,HUMAN 100 UNT/ML INJ INJECT 50 UNITS UNDER THE SKIN EVERY MORNING FOR DIABETES (AT SAME TIME EACH DAY) - (DISCARD ANY UNUSED PORTION 28 DAYS AFTER OPENING) ### SUBCUT ANEOUS ACTIVE 09/18/2025 [id number] RADHA PINK 2024 5 [facility] INSULIN,GLA RGINE,HUMAN 100 UNT/ML INJ INJECT 10 UNITS UNDER THE SKIN EVERY MORNING FOR DIABETES (AT SAME TIME EACH DAY) - (DISCARD ANY UNUSED PORTION 28 DAYS AFTER OPENING) SUBCUT ANEOUS DISCONT INUED (EDIT) 09/09/2025 [id number] 5 RADHA PINK 2024 5 [facility] INSULIN,GLA RGINE,HUMAN 100 UNT/ML INJ INJECT 40 UNITS UNDER THE SKIN EVERY MORNING FOR DIABETES (AT SAME TIME EACH DAY) - (DISCARD ANY UNUSED PORTION 28 DAYS AFTER OPENING) SUBCUT ANEOUS DISCONT INUED (EDIT) 04/27/2025 [id number] 4 TATO BARRAZA 2023 5 [facility] INSULIN,GLA RGINE-YFGN 100UNIT/ML INJ INJECT 35 UNITS UNDER THE SKIN EVERY MORNING FOR DIABETES (AT SAME TIME EACH DAY) - (DISCARD ANY UNUSED PORTION 28 DAYS AFTER OPENING) SUBCUT ANEOUS 04/24/2024 [id number] 4 TATO BARRAZA 2022 6 [facility] ISOSORBIDE MONONITRATE 120MG TAB,SA TAKE ONE TABLET BY MOUTH ONCE A DAY TAKE ON EMPTY STOMACH. SWALLOW WHOLE. DO NOT CRUSH OR CHEW. ORAL DISCONT INUED (EDIT) 09/25/2024 [id number] 4 RAQUEL MARTINEZ 2023 90 [place] [facility] ISOSORBIDE MONONITRATE 30MG TAB,SA TAKE ONE TABLET BY MOUTH ONCE A DAY FOR CHEST PAIN TAKE ON EMPTY STOMACH. SWALLOW WHOLE. DO NOT CRUSH OR CHEW. ORAL ACTIVE 04/27/2025 [id number] 5 ALF BARRAZAMY 2023 90 [facility] LORATADINE 10MG TAB TAKE ONE TABLET BY MOUTH ONCE A DAY ON EMPTY STOMACH FOR ALLERGIE S ORAL DISCONT INUED 07/25/2024 [id number] 4 CHRISTI, TATO [address] [place] [address] [facility] LORATADINE 10MG TAB TAKE ONE TABLET BY MOUTH ONCE A DAY ON EMPTY STOMACH FOR ALLERGIE S ORAL DISCONT INUED 05/25/2024 [id number] 4 CHRISTI, TATO [address] [place] [address] [facility] LORATADINE 10MG TAB TAKE ONE TABLET BY MOUTH ONCE A DAY ON EMPTY STOMACH FOR ALLERGIE S ORAL DISCONT INUED 02/06/2024 [id number] CHRISTI, TATO [address] [place] [address] [facility] LORATADINE 10MG TAB TAKE ONE TABLET BY MOUTH ONCE A DAY ON EMPTY STOMACH FOR ALLERGIE S ORAL 12/08/2024 [id number] 5 CHRISTI, TATO [address] [place] [address] [facility] MAGNESIUM OXIDE 400MG TAB TAKE ONE TABLET BY MOUTH ONCE A DAY FOR DIETARY MAGNESIU M SUPPLEME NTATION ORAL 04/07/2024 [id number] JENY GAMA 2022 120 [place] [facility] METOPROLOL TARTRATE 25MG TAB TAKE ONE TABLET BY MOUTH TWICE A DAY TAKE WITH OR IMMEDIAT JACKI FOLLOWIN G FOOD. ORAL DISCONT INUED BY GLORIA R 11/13/2024 [id number] Sharon EL USSAPEDRO PABLO 2023 180 [place] [facility] NIFEDIPINE (EQV-CC) 60MG TAB,SA TAKE ONE TABLET BY MOUTH ONCE A DAY FOR HIGH BLOOD PRESSURE PREFERAB LE TO TAKE ON EMPTY STOMACH. SWALLOW WHOLE; DO NOT CRUSH OR CHEW. AVOIDGRA PEFRUIT JUICE. ORAL 08/20/2024 [id number] 4 CHRISTI, TATO [address] [place] [address] [facility] NITROGLYCER IN 0.4MG TAB,SUBLING UAL DISSOLVE ONE TABLET UNDER THE TONGUE ONE-TIME FOR CHEST PAIN NEEDED; IF NO IMPROVEM ENT AFTER FIRST DOSE CALL 9-1-1. MAY TAKE 2 ADDITION AL DOSES, 5 MINUTES APART SUBLIN GUAL ACTIVE 04/20/2025 [id number] 5 CHRISTI, TATO 2023 100 [facility] OLANZAPINE 10MG TAB TAKE ONE-HALF TABLET BY MOUTH AT BEDTIME NEEDED FOR ANXIETY ORAL ACTIVE 04/27/2025 [id number] 4 CHRISTI, TATO 2023 90 [facility] [place] PANTOPRAZOL E NA 40MG TAB,EC TAKE ONE TABLET BY MOUTH EVERY MORNING BEFORE A MEAL FOR GASTROES OPHAGEAL REFLUX DISEASE TAKE 30 MINUTES BEFORE MEAL(S) ORAL ACTIVE 12/23/2025 [id number] 5 CHRISTI, TATO 2024 90 [place] [facility] SEVELAMER CARBONATE 800MG TAB TAKE ONE TABLET BY MOUTH THREE TIMES A DAY WITH MEAL(S) TAKE WITH FOOD. ORAL ACTIVE 04/24/2025 [id number] 5 TREVER MCRAE 2023 90 [place] [facility] SODIUM ZIRCONIUM CYCLOSILICA TE 10GM/PKT PWDR,RENST- ORAL MIX AND DRINK 10GM/PKT BY MOUTH EVERY OTHER DAY FOR 90 DAYS FOR HIGH POTASSIU M DISSOLVE IN WATER ORAL DISCONT INUED BY PROVIDE R 06/30/2024 [id number] 4 Antonio JOHNSON 2023 30 [place] [facility] TAMSULOSIN HCL 0.4MG CAP TAKE TWO CAPSULES BY MOUTH EVERY EVENING APPROXIM ATELY 30 MINUTES AFTER THE SAME MEAL EACH DAY (FOR PROSTATE ) ORAL ACTIVE 03/20/2025 [id number] RADHA PINK 2023 180 [place] [facility] TAMSULOSIN HCL 0.4MG CAP TAKE TWO CAPSULES BY MOUTH EVERY EVENING APPROXIM ATELY 30 MINUTES AFTER THE SAME MEAL EACH DAY (FOR PROSTATE ) ORAL DISCONT INUED 04/07/2024 [id number] 4 JENY GAMA 2022 180 [place] [facility] TORSEMIDE 100MG TAB TAKE ONE TABLET BY MOUTH DIRECTED ON NON-DIAL YSIS DAYS (FRIDAY, , FRIDAY, AND JAYMIE) ORAL HOLD 09/14/2025 [id number] THORTREVER NOHEMYLivier BRO 2024 52 [place] [facility] Allergies, Adverse Reactions, Alerts Combined list of allergies from Department of [facility] and [facility] facilities. It does not include entries that were removed or entered in error. Substance Category Reaction Severity Reaction type Status Date Reported Comments Source ALLOPURINOL Propensity to adverse reactions to drug (finding) Eruption active 8 [facility] CONTRAST MEDIA Propensity to adverse reactions to drug (finding) Eruption active 3 [facility] FLOMAX Propensity to adverse reactions to drug (finding) Chill, Finding of vomiting, Diarrhea, Weakness present active 8 [facility] METFORMIN Propensity to adverse reactions to drug (finding) NAUSEA,VO MITING active 3 [facility] Immunizations Combined list of available immunizations from the Department of [facility] and [facility] facilities. Immunization Series Date Given Administered By Site Reaction Lot Number CVX Code Drug Pump Attendant Status Comments Source PNEUMOCOCCAL POLYSACCHARID E PPV23 2020 33 complet ed [facility] ZOSTER RECOMBINANT 2 2020 187 complet ed [facility] ZOSTER RECOMBINANT 1 2020 187 complet ed [facility] PNEUMOCOCCAL CONJUGATE PCV 13 2020 133 complet ed [facility] TDAP 2020 115 complet ed [facility] COVID-19 (PFIZER), MRNA, LNP-S, PF, 30 MCG/0.3 ML DOSE 2 2020 208 complet ed [facility] COVID-19 (EmboMedics), MRNA, LNP-S, PF, 30 MCG/0.3 ML DOSE 1 2020 208 complet ed [facility] COVID-19 (EmboMedics), MRNA, LNP-S, PF, 30 MCG/0.3 ML DOSE 1 2020 208 complet ed HISTORICA L INFORMATI ON - FROM OTHER REGISTRY, [facility] PNEUMOCOCCAL CONJUGATE PCV 13 1 2015 133 complet ed HISTORICA L INFORMATI ON - FROM OTHER REGISTRY, [facility] INFLUENZA, UNSPECIFIED FORMULATION 2013 88 complet ed [facility] INFLUENZA, UNSPECIFIED FORMULATION 2011 88 complet ed [facility] TD(ADULT) UNSPECIFIED FORMULATION 2004 139 complet ed [facility] INFLUENZA (HISTORICAL) 2003 88 complet ed [facility] INFLUENZA (HISTORICAL) 2002 88 complet ed [facility] Results Combined list of [...] 2023 10:52 AM Reporting Lab: [place] [facility] [address] [place] [address] Performin g Lab: [place] [facility] [address] [place] [address] [facility] CBC ERYTHROCYTE S [#/VOLUME] IN BLOOD BY AUTOMATED COUNT 3.15 10*6/uL 4.10 - 5.70 12/01 L Specimen Type: BLOOD No comment entered. Ordering Provider: TATO BARRAZA Report Released Date/Time : Dec 09, 2023 10:52 AM Reporting Lab: [place] [facility] [address] [place] [address] Performin g Lab: [place] [facility] [address] [place] [address] [facility] CBC HEMOGLOBIN [MASS/VOLUM E] IN BLOOD 9.6 g/dL 13.1 - 16.8 12/01 L Specimen Type: BLOOD No comment entered. Ordering Provider: TATO BARRAZA Report Released Date/Time : Dec 09, 2023 10:52 AM Reporting Lab: [place] [facility] [address] [place] [address] Performin g Lab: [place] [facility] [address] [place] [address] [facility] CBC HEMATOCRIT [VOLUME FRACTION] OF BLOOD 31.9 38.2 - 48.4 12/01 L Specimen Type: BLOOD No comment entered. Ordering Provider: TATO BARRAZA Report Released Date/Time : Dec 09, 2023 10:52 AM Reporting Lab: [place] [facility] [address] [place] [address] Performin g Lab: [place] [facility] [address] [place] [address] [facility] CBC MCV [ENTITIC VOLUME] BY AUTOMATED COUNT 101.3 fL 80.0 - 100.0 12/01 H Specimen Type: BLOOD No comment entered. Ordering Provider: TATO BARRAZA Report Released Date/Time : Dec 09, 2023 10:52 AM Reporting Lab: [place] [facility] [address] [place] [address] Performin g Lab: [place] [facility] [address] [place] [address] [facility] CBC MCH [ENTITIC MASS] BY AUTOMATED COUNT 30.5 pg 27.0 - 34.0 12/01 Specimen Type: BLOOD No comment entered. Ordering Provider: TATO BARRAZA Report Released Date/Time : Dec 09, 2023 10:52 AM Reporting Lab: [place] [facility] [address] [place] [address] Performin g Lab: [place] [facility] [address] [place] [address] [facility] CBC MCHC [MASS/VOLUM E] BY AUTOMATED COUNT 30.1 g/dL 33.0 - 36.0 12/01 L Specimen Type: BLOOD No comment entered. Ordering Provider: TATO BARRAZA Report Released Date/Time : Dec 09, 2023 10:52 AM Reporting Lab: [place] [facility] [address] [place] [address] Performin g Lab: [place] [facility] [address] [place] [address] [facility] CBC PLATELETS [#/VOLUME] IN BLOOD BY AUTOMATED COUNT 100 10*3/uL 150 - 400 12/01 L Specimen Type: BLOOD No comment entered. Ordering Provider: TATO BARRAZA Report Released Date/Time : Dec 09, 2023 10:52 AM Reporting Lab: [place] [facility] [address] [place] [address] Performin g Lab: [place] [facility] [address] [place] [address] [facility] CBC PLATELET MEAN VOLUME [ENTITIC VOLUME] IN BLOOD BY AUTOMATED COUNT 9.2 fL 7.5 - 11.2 12/01 Specimen Type: BLOOD No comment entered. Ordering Provider: TATO BARRAZA Report Released Date/Time : Dec 09, 2023 10:52 AM Reporting Lab: [place] [facility] [address] [place] [address] Performin g Lab: [place] [facility] [address] [place] [address] [facility] CBC SEGMENTED NEUTROPHILS /100 LEUKOCYTES IN BLOOD BY MANUAL COUNT 5 12/01 Specimen Type: BLOOD No comment entered. Ordering Provider: TATO BARRAZA Report Released Date/Time : Dec 09, 2023 10:52 AM Reporting Lab: [place] [facility] [address] [place] [address] Performin g Lab: [place] [facility] [address] [place] [address] [facility] CBC MONOCYTES/1 00 LEUKOCYTES IN BLOOD BY AUTOMATED COUNT 1 12/01 Specimen Type: BLOOD No comment entered. Ordering Provider: TATO BARRAZA Report Released Date/Time : Dec 09, 2023 10:52 AM Reporting Lab: [place] [facility] [address] [place] [address] Performin g Lab: [place] [facility] [address] [place] [address] [facility] CBC PLATELET ADEQUACY [PRESENCE] IN BLOOD BY LIGHT MICROSCOPY DECREASED 12/01 Specimen Type: BLOOD No comment entered. Ordering Provider: TATO BARRAZA Report Released Date/Time : Dec 09, 2023 10:52 AM Reporting Lab: [place] [facility] [address] [place] [address] Performin g Lab: [place] [facility] [address] [place] [address] [facility] CBC ANISOCYTOSI S [PRESENCE] IN BLOOD BY LIGHT MICROSCOPY 1+ 12/01 Specimen Type: BLOOD No comment entered. Ordering Provider: TATO BARRAZA Report Released Date/Time : Dec 09, 2023 10:52 AM Reporting Lab: [place] [facility] [address] [place] [address] Performin g Lab: [place] [facility] [address] [place] [address] [facility] CBC SMUDGE CELLS [PRESENCE] IN BLOOD BY LIGHT MICROSCOPY 1+ 12/01 Specimen Type: BLOOD No comment entered. Ordering Provider: TATO BARRAZA Report Released Date/Time : Dec 09, 2023 10:52 AM Reporting Lab: [place] [facility] [address] [place] [address] Performin g Lab: [place] [facility] [address] [place] [address] [facility] CBC ERYTHROCYTE DISTRIBUTIO N WIDTH [RATIO] BY AUTOMATED COUNT 18.4 11.8 - 15.1 12/01 H Specimen Type: BLOOD No comment entered. Ordering Provider: TATO BARRAZA Report Released Date/Time : Dec 09, 2023 10:52 AM Reporting Lab: [place] [facility] [address] [place] [address] Performin g Lab: [place] [facility] [address] [place] [address] [facility] CBC LYMPHOCYTES /100 LEUKOCYTES IN BLOOD BY MANUAL COUNT 70 12/01 Specimen Type: BLOOD No comment entered. Ordering Provider: TATO BARRAZA Report Released Date/Time : Dec 09, 2023 10:52 AM Reporting Lab: [place] [facility] [address] [place] [address] Performin g Lab: [place] [facility] [address] [place] [address] [facility] CBC LYMPHOCYTES /100 LEUKOCYTES IN BLOOD BY AUTOMATED COUNT 94.2 12/01 Specimen Type: BLOOD No comment entered. Ordering Provider: TATO BARRAZA Report Released Date/Time : Dec 09, 2023 10:52 AM Reporting Lab: [place] [facility] [address] [place] [address] Performin g Lab: [place] [facility] [address] [place] [address] [facility] CBC MONOCYTES/1 00 LEUKOCYTES IN BLOOD BY AUTOMATED COUNT 1.6 12/01 Specimen Type: BLOOD No comment entered. Ordering Provider: TATO BARRAZA Report Released Date/Time : Dec 09, 2023 10:52 AM Reporting Lab: [place] [facility] [address] [place] [address] [facility]: [place] [facility] [address] [place] [address] [facility] CBC NEUTROPHILS /100 LEUKOCYTES IN BLOOD BY AUTOMATED COUNT 3.5 12/01 Specimen Type: BLOOD No comment entered. Ordering Provider: TATO BARRAZA Report Released Date/Time : Dec 09, 2023 10:52 AM Reporting Lab: [place] [facility] [address] [place] [address] 8 [facility]formin [facility]: [place] [facility] [address] [place] [address] [facility] CBC EOSINOPHILS /100 LEUKOCYTES IN BLOOD BY AUTOMATED COUNT 0.5 12/01 Specimen Type: BLOOD No comment entered. Ordering Provider: TATO BARRAZA Report Released Date/Time : Dec 09, 2023 10:52 AM Reporting Lab: [place] [facility] [address] [place] [address] 8 [facility]formin [facility]: [place] [facility] [address] [place] [address] [facility] CBC BASOPHILS/1 00 LEUKOCYTES IN BLOOD BY AUTOMATED COUNT 0.1 12/01 Specimen Type: BLOOD No comment entered. Ordering Provider: TATO BARRAZA Report Released Date/Time : Dec 09, 2023 10:52 AM Reporting Lab: [place] [facility] [address] [place] [address] 8 Performin [facility]: [place] [facility] [address] [place] [address] 8 [facility] CBC LYMPHOCYTES [#/VOLUME] IN BLOOD BY AUTOMATED COUNT 56.46 10*3/uL 0.77 - 4.50 12/01 H Specimen Type: BLOOD No comment entered. Ordering Provider: TATO BARRAZA Report Released Date/Time : Dec 09, 2023 10:52 AM Reporting Lab: [place] [facility] [address] [place] [address] 8 [facility]formin [facility]: [place] [facility] [address] [place] [address] 8 [facility] CBC MONOCYTES [#/VOLUME] IN BLOOD BY AUTOMATED COUNT 0.97 10*3/uL 0.19 - 0.8 12/01 H Specimen Type: BLOOD No comment entered. Ordering Provider: TATO BARRAZA Report Released Date/Time : Dec 09, 2023 10:52 AM Reporting Lab: [place] [facility] [address] [place] [address] 8 Performin g Lab: [place] [facility] [address] [place] [address] 8 [facility] CBC NEUTROPHILS [#/VOLUME] IN BLOOD BY AUTOMATED COUNT 2.12 10*3/uL 2.10 - 8.00 12/01 Specimen Type: BLOOD No comment entered. Ordering Provider: TATO BARRAZA Report Released Date/Time : Dec 09, 2023 10:52 AM Reporting Lab: [place] [facility] [address] [place] [address] 8 Performin g Lab: [place] [facility] [address] [place] [address] 8 [facility] CBC EOSINOPHILS [#/VOLUME] IN BLOOD BY AUTOMATED COUNT 0.27 10*3/uL 0.00 - 0.60 12/01 Specimen Type: BLOOD No comment entered. Ordering Provider: TATO BARRAZA Report Released Date/Time : Dec 09, 2023 10:52 AM Reporting Lab: [place] [facility] [address] [place] [address] 8 Performin g Lab: [place] [facility] [address] [place] [address] [facility] CBC BASOPHILS [#/VOLUME] IN BLOOD BY AUTOMATED COUNT 0.04 10*3/uL 0.00 - 0.20 12/01 Specimen Type: BLOOD No comment entered. Ordering Provider: TATO BARRAZA Report Released Date/Time : Dec 09, 2023 10:52 AM Reporting Lab: [place] [facility] [address] [place] [address] 8 Performin g Lab: [place] [facility] [address] [place] [phone] 8 [facility] CBC VARIANT LYMPHOCYTES /100 LEUKOCYTES IN BLOOD BY MANUAL COUNT 24 12/01 Specimen Type: BLOOD No comment entered. Ordering Provider: TATO BARRAZA Report Released Date/Time : Dec 09, 2023 10:52 AM Reporting Lab: [place] [facility] [address] [place] [address] 8 Performin g Lab: [place] [facility] [address] [place] [phone] 8 [facility] CBC PLATELETS RETICULATED /100 PLATELETS IN BLOOD BY AUTOMATED COUNT 1.8 1.0 - 7.0 12/01 Specimen Type: BLOOD No comment entered. Ordering Provider: TATO BARRAZA Report Released Date/Time : Dec 09, 2023 10:52 AM Reporting Lab: [place] [facility] [address] [place] [address] 8 Performin g Lab: [place] [facility] [address] [place] [address] 8 [facility] CBC IMMATURE GRANULOCYTE S/100 LEUKOCYTES IN BLOOD BY AUTOMATED COUNT 0.1 06/11 /2025 Specimen Type: BLOOD No comment entered. Ordering Provider: TATO BARRAZA Report Released Date/Time : Dec 09, 2023 10:52 AM Reporting Lab: [place] [facility] [address] [place] [address] 8 Performin g Lab: [place] [facility] [address] [place] [address] 8 [facility] CBC IMMATURE GRANULOCYTE S [#/VOLUME] IN BLOOD BY AUTOMATED COUNT 0.07 10*3/uL 0.00 - 0.05 12/01 H Specimen Type: BLOOD No comment entered. Ordering Provider: TATO BARRAZA Report Released Date/Time : Dec 09, 2023 10:52 AM Reporting Lab: [place] [facility] [address] [place] [address] 8 Performin g Lab: [place] [facility] [address] [place] [address] 8 [facility] CBC MANUAL DIFFERENTIA L COMMENT [INTERPRETA TION] IN BLOOD NARRATIVE NO 12/01 Specimen Type: BLOOD No comment entered. Ordering Provider: TATO BARRAZA Report Released Date/Time : Dec 09, 2023 10:52 AM Reporting Lab: [place] [facility] [address] [place] [address] 8 Performin g Lab: [place] [facility] [address] [place] [address] [facility] CBC MANUAL DIFFERENTIA L PERFORMED [PRESENCE] IN BLOOD 0.00 10*3/uL 0.00 12/01 Specimen Type: BLOOD No comment entered. Ordering Provider: TATO BARRAZA Report Released Date/Time : Dec 09, 2023 10:52 AM Reporting Lab: [place] [facility] [address] [place] [address] 8 Performin g Lab: [place] [facility] [address] [place] [address] 8 [facility] CBC MONOCYTES [#/VOLUME] IN BLOOD BY MANUAL COUNT 0.60 10*3/uL 0.19 - 0.8 12/01 Specimen Type: BLOOD No comment entered. Ordering Provider: TATO BARRAZA Report Released Date/Time : Dec 09, 2023 10:52 AM Reporting Lab: [place] [facility] [address] [place] [address] 8 Performin g Lab: [place] [facility] [address] [place] [address] [facility] CBC LYMPHOCYTES [#/VOLUME] IN BLOOD BY MANUAL COUNT 41.93 10*3/uL 0.77 - 4.50 12/01 H Specimen Type: BLOOD No comment entered. Ordering Provider: TATO BARRAZA Report Released Date/Time : Dec 09, 2023 10:52 AM Reporting Lab: [place] [facility] [address] [place] [address] 8 Performin g Lab: [place] [facility] [address] [place] [address] [facility] CBC NEUTROPHILS [#/VOLUME] IN BLOOD BY MANUAL COUNT 3.00 10*3/uL 2.10 - 8.00 12/01 Specimen Type: BLOOD No comment entered. Ordering Provider: TATO BARRAZA Report Released Date/Time : Dec 09, 2023 10:52 AM Reporting Lab: [place] [facility] [address] [place] [address] 8 Performin g Lab: [place] [facility] [address] [place] [address] [facility] CHOLESTERO L PANEL (PB) CHOLESTEROL [MASS/VOLUM E] IN SERUM OR PLASMA 84 mg/dL 0 - 200 12/01 Specimen Type: PLASMA No comment entered. Ordering Provider: TATO BARRAZA Report Released Date/Time : Dec 09, 2023 10:52 AM Reporting Lab: [place] [facility] [address] [place] [address] 8 Performin g Lab: [place] [facility] [address] [place] [address] 8 [facility] CHOLESTERO L PANEL (PB) TRIGLYCERID E [MASS/VOLUM E] IN SERUM OR PLASMA 103 mg/dL 0 - 150 06/11 /2025 Specimen Type: PLASMA No comment entered. Ordering Provider: TATO BARRAZA Report Released Date/Time : Dec 09, 2023 10:52 AM Reporting Lab: [place] [facility] [address] [place] [address] 8 Performin g Lab: [place] [facility] [address] [place] [address] 8 [facility] CHOLESTERO L PANEL (PB) CHOLESTEROL IN LDL [MASS/VOLUM E] IN SERUM OR PLASMA BY CALCULATION 27.9 mg/dL 12/01 Specimen Type: PLASMA No comment entered. Ordering Provider: TATO BARRAZA Report Released Date/Time : Dec 09, 2023 10:52 AM Reporting Lab: [place] [facility] [address] [place] [address] 8 Performin g Lab: [place] [facility] [address] [place] [address] [facility] CHOLESTERO L PANEL (PB) CHOLESTEROL IN HDL [MASS/VOLUM E] IN SERUM OR PLASMA 35.5 mg/dL 40 12/01 L Specimen Type: PLASMA No comment entered. Ordering Provider: TATO BARRAZA Report Released Date/Time : Dec 09, 2023 10:52 AM Reporting Lab: [place] [facility] [address] [place] [address] 8 Performin g Lab: [place] [facility] [address] [place] [address] 8 [facility] CHOLESTERO L PANEL (PB) CHOLESTEROL IN HDL/CHOLEST ZULEYKA.TOTAL [MASS RATIO] IN SERUM OR PLASMA 42.3 25 12/01 Specimen Type: PLASMA No comment entered. Ordering Provider: TATO BARRAZA Report Released Date/Time : Dec 09, 2023 10:52 AM Reporting Lab: [place] [facility] [address] [place] [address] 8 Performin g Lab: [place] [facility] [address] [place] [address] [facility] COMPREHENS ERNST METABOLIC PANEL CREATININE [MASS/VOLUM E] IN SERUM OR PLASMA 3.11 mg/dL 0.7 - 1.3 12/01 H Specimen Type: PLASMA No comment entered. Ordering Provider: TATO BARRAZA Report Released Date/Time : Dec 09, 2023 10:52 AM Reporting Lab: [place] [facility] [address] [place] [address] 8 Performin g Lab: [place] [facility] [address] [place] [address] 8 [facility] COMPREHENS ERNST METABOLIC PANEL UREA NITROGEN [MASS/VOLUM E] IN SERUM OR PLASMA 24 mg/dL 9 - 25 12/01 Specimen Type: PLASMA No comment entered. Ordering Provider: TATO BARRAZA Report Released Date/Time : Dec 09, 2023 10:52 AM Reporting Lab: [place] [facility] [address] [place] [address] 8 Performin g Lab: [place] [facility] [address] [place] [address] 8 [facility] COMPREHENS ERNST METABOLIC PANEL GLUCOSE [MASS/VOLUM E] IN SERUM OR PLASMA 212 mg/dL 72 - 99 12/01 H Specimen Type: PLASMA No comment entered. Ordering Provider: TATO BARRAZA Report Released Date/Time : Dec 09, 2023 10:52 AM Reporting Lab: [place] [facility] [address] [place] [address] 8 Performin g Lab: [place] [facility] [address] [place] [address] 8 [facility] COMPREHENS ERNST METABOLIC PANEL SODIUM [MOLES/VOLU ME] IN SERUM OR PLASMA 137 meq/L 136 - 145 12/01 Specimen Type: PLASMA No comment entered. Ordering Provider: TATO BARRAZA Report Released Date/Time : Dec 09, 2023 10:52 AM Reporting Lab: [place] [facility] [address] [place] [address] 8 Performin g Lab: [place] [facility] [address] [place] [address] 8 [facility] COMPREHENS ERNST METABOLIC PANEL POTASSIUM [MOLES/VOLU ME] IN SERUM OR PLASMA 4.6 meq/L 3.5 - 5 12/01 Specimen Type: PLASMA No comment entered. Ordering Provider: TATO BARRAZA Report Released Date/Time : Dec 09, 2023 10:52 AM Reporting Lab: [place] [facility] [address] [place] [address] 8 Performin g Lab: [place] [facility] [address] [place] [address] 8 [facility] COMPREHENS ERNST METABOLIC PANEL CHLORIDE [MOLES/VOLU ME] IN SERUM OR PLASMA 100 meq/L 98 - 107 12/01 Specimen Type: PLASMA No comment entered. Ordering Provider: TATO BARRAZA Report Released Date/Time : Dec 09, 2023 10:52 AM Reporting Lab: [place] [facility] [address] [place] [address] 8 Performin g Lab: [place] [facility] [address] [place] [address] 8 [facility] COMPREHENS ERNST METABOLIC PANEL CARBON DIOXIDE, TOTAL [MOLES/VOLU ME] IN SERUM OR PLASMA 27 meq/L 22 - 31 12/01 Specimen Type: PLASMA No comment entered. Ordering Provider: TATO BARRAZA Report Released Date/Time : Dec 09, 2023 10:52 AM Reporting Lab: [place] [facility] [address] [place] [address] 8 Performin g Lab: [place] [facility] [address] [place] [address] 8 [facility] COMPREHENS ERNST METABOLIC PANEL CALCIUM [MASS/VOLUM E] IN SERUM OR PLASMA 8.9 mg/dL 8.4 - 10.4 12/01 Specimen Type: PLASMA No comment entered. Ordering Provider: TATO BARRAZA Report Released Date/Time : Dec 09, 2023 10:52 AM Reporting Lab: [place] [facility] [address] [place] [address] 8 Performin g Lab: [place] [facility] [address] [place] [address] 8 [facility] COMPREHENS ERNST METABOLIC PANEL PROTEIN [MASS/VOLUM E] IN SERUM OR PLASMA 6.1 g/dL 6 - 8.6 12/01 Specimen Type: PLASMA No comment entered. Ordering Provider: TATO BARRAZA Report Released Date/Time : Dec 09, 2023 10:52 AM Reporting Lab: [place] [facility] [address] [place] [address] 8 Performin g Lab: [place] [facility] [address] [place] [address] 8 [facility] COMPREHENS ERNST METABOLIC PANEL ALBUMIN [MASS/VOLUM E] IN SERUM OR PLASMA 4.1 g/dL 3.4 - 5 12/01 Specimen Type: PLASMA No comment entered. Ordering Provider: TATO BARRAZA Report Released Date/Time : Dec 09, 2023 10:52 AM Reporting Lab: [place] [facility] [address] [place] [address] 8 Performin g Lab: [place] [facility] [address] [place] [address] [facility] COMPREHENS ERNST METABOLIC PANEL BILIRUBIN.T OTAL [MASS/VOLUM E] IN SERUM OR PLASMA 1.2 mg/dL 0.2 - 1.2 12/01 Specimen Type: PLASMA No comment entered. Ordering Provider: TATO BARRAZA Report Released Date/Time : Dec 09, 2023 10:52 AM Reporting Lab: [place] [facility] [address] [place] [address] 8 Performin g Lab: [place] [facility] [address] [place] [address] 8 [facility] COMPREHENS ERNST METABOLIC PANEL ALKALINE PHOSPHATASE [ENZYMATIC ACTIVITY/VO LUME] IN SERUM OR PLASMA 105 U/L 40 - 150 12/01 Specimen Type: PLASMA No comment entered. Ordering Provider: TATO BARRAZA Report Released Date/Time : Dec 09, 2023 10:52 AM Reporting Lab: [place] [facility] [address] [place] [address] 8 Performin g Lab: [place] [facility] [address] [place] [address] 8 [facility] COMPREHENS ERNST METABOLIC PANEL ASPARTATE AMINOTRANSF ERASE [ENZYMATIC ACTIVITY/VO LUME] IN SERUM OR PLASMA 10 U/L 5 - 34 12/01 Specimen Type: PLASMA No comment entered. Ordering Provider: TATO BARRAZA Report Released Date/Time : Dec 09, 2023 10:52 AM Reporting Lab: [place] [facility] [address] [place] [address] 8 Performin g Lab: [place] [facility] [address] [place] [address] 8 [facility] COMPREHENS ERNST METABOLIC PANEL ALANINE AMINOTRANSF ERASE [ENZYMATIC ACTIVITY/VO LUME] IN SERUM OR PLASMA <7U/L 8 - 40 12/01 L Specimen Type: PLASMA No comment entered. Ordering Provider: TATO BARRAZA Report Released Date/Time : Dec 09, 2023 10:52 AM Reporting Lab: [place] [facility] [address] [place] [address] 8 Performin g Lab: [place] [facility] [address] [place] [address] 8 [facility] COMPREHENS ERNST METABOLIC PANEL GLOMERULAR FILTRATION RATE/1.73 SQ M.PREDICTED [VOLUME RATE/AREA] IN SERUM, PLASMA OR BLOOD BY CREATININE- BASED FORMULA (CKD-EPI 2020) 19 12/01 Specimen Type: PLASMA No comment entered. Ordering Provider: TATO BARRAZA Report Released Date/Time : Dec 09, 2023 10:52 AM Reporting Lab: [place] [facility] [address] [place] [address] 8 Performin g Lab: [place] [facility] [address] [place] [address] 8 [facility] HGA1C HEMOGLOBIN A1C/HEMOGLO BIN.TOTAL IN BLOOD 7.4 4.0 - 6.0 12/01 H Specimen Type: BLOOD No comment entered. Ordering Provider: TATO BARRAZA Report Released Date/Time : Dec 09, 2023 10:52 AM Reporting Lab: [place] [facility] [address] [place] [address] 8 Performin g Lab: [place] [facility] [address] [place] [address] 8 [facility] TSH (MA-PB) THYROTROPIN [UNITS/VOLU ME] IN SERUM OR PLASMA 4.243 u[IU]/mL 0.47 - 5 12/01 Specimen Type: SERUM No comment entered. Ordering Provider: TATO BARRAZA Report Released Date/Time : Dec 09, 2023 10:52 AM Reporting Lab: [place] [facility] [address] [place] [address] 8 Performin g Lab: [place] [facility] [address] [place] [address] 8 [facility] URINE ALBUMIN PROFILE-ih (PB) ALBUMIN [MASS/VOLUM E] IN URINE 417.30 mg/L 12/01 Specimen Type: URINE No comment entered. Ordering Provider: TATO BARRAZA Report Released Date/Time : Dec 09, 2023 10:52 AM Reporting Lab: [place] [facility] [address] [place] [address] 8 Performin g [facility]: [place] [facility] [address] [place] [address] 8 [facility] URINE ALBUMIN PROFILE-ih (PB) ALBUMIN/CRE ATININE [MASS RATIO] IN URINE 346.62 mg/g 0 - 30 12/01 H Specimen Type: URINE No comment entered. Ordering Provider: TATO BARRAZA Report Released Date/Time : Dec 09, 2023 10:52 AM Reporting Lab: [place] [facility] [address] [place] [address] 8 Performin g Lab: [place] [facility] [address] [place] [address] 8 [facility] URINE ALBUMIN PROFILE-ih (PB) CREATININE [MASS/VOLUM E] IN URINE 120.39 mg/dL 12/01 Specimen Type: URINE No comment entered. Ordering Provider: TATO BARRAZA Report Released Date/Time : Dec 09, 2023 10:52 AM Reporting Lab: [place] [facility] [address] [place] [address] 8 Performin g [facility]: [place] [facility] [address] [place] [address] 8 [facility] B12 COBALAMIN (VITAMIN B12) [MASS/VOLUM E] IN SERUM OR PLASMA 394 pg/mL 213 - 816 09/13 Specimen Type: SERUM No comment entered. Ordering Provider: RADAH PINK Report Released Date/Time : Jun 07, 2024 01:24 PM Reporting Lab: [place] [facility] [address] [place] [address] 8 Performin g [facility]: [place] [facility] [address] [place] [address] 8 [facility] FERRITIN FERRITIN [MASS/VOLUM E] IN SERUM OR PLASMA 228 ng/mL 22 - 275 09/13 Specimen Type: SERUM No comment entered. Ordering Provider: RADHA PINK Report Released Date/Time : Jun 07, 2024 01:24 PM Reporting Lab: [place] [facility] [address] [place] [address] 8 Performin g Lab: [place] [facility] [address] [place] [address] 8 [facility] FOLATE (PB) FOLATE [MASS/VOLUM E] IN SERUM OR PLASMA >20.0ng/m L 7 - 20 09/13 H Specimen Type: SERUM No comment entered. Ordering Provider: RADHA PINK Report Released Date/Time : Jun 07, 2024 01:24 PM Reporting Lab: [place] [facility] [address] [place] [address] 8 Performin g Lab: [place] [facility] [address] [place] [address] [facility] IRON/TIBC PROFILE IRON BINDING CAPACITY [MASS/VOLUM E] IN SERUM OR PLASMA 218 ug/dL 09/13 Specimen Type: PLASMA No comment entered. Ordering Provider: RADHA PINK Report Released Date/Time : Jun 07, 2024 01:24 PM Reporting Lab: [place] [facility] [address] [place] [address] 8 Performin g Lab: [place] [facility] [address] [place] [address] 8 [facility] IRON/TIBC PROFILE TRANSFERRIN [MASS/VOLUM E] IN SERUM OR PLASMA 174 mg/dL 163 - 344 09/13 Specimen Type: PLASMA No comment entered. Ordering Provider: RADHA PINK Report Released Date/Time : Jun 07, 2024 01:24 PM Reporting Lab: [place] [facility] [address] [place] [address] Performin g Lab: [place] [facility] [address] [place] [address] [facility] IRON/TIBC PROFILE IRON SATURATION [MASS FRACTION] IN SERUM OR PLASMA 33 20 - 50 09/13 Specimen Type: PLASMA No comment entered. Ordering Provider: RADHA PINK Report Released Date/Time : Jun 07, 2024 01:24 PM Reporting Lab: [place] [facility] [address] [place] [address] Performin g Lab: [place] [facility] [address] [place] [address] [facility] IRON/TIBC PROFILE IRON [MASS/VOLUM E] IN SERUM OR PLASMA 71 ug/dL 65 - 175 09/13 Specimen Type: PLASMA No comment entered. Ordering Provider: RADHA PINK Report Released Date/Time : Jun 07, 2024 01:24 PM Reporting Lab: [place] [facility] [address] [place] [address] Performin g Lab: [place] [facility] [address] [place] [address] [facility] Vital Signs Combined list of inpatient and outpatient Vital Signs from Department of Defense and Veterans Affairs, ranging from 12 months to all on record, depending upon the facility. Vital Sign Value Date Comments Source SYSTOLIC BLOOD PRESSURE 101 12/22/2024 10:59:00 [facility] DIASTOLIC BLOOD PRESSURE 46 12/22/2024 10:59:00 [facility] PULSE OXIMETRY 94 % 12/22/2024 10:59:00 [facility] WEIGHT 230.5 12/22/2024 10:59:00 [facility] BMI 32 kg/m2 12/22/2024 10:59:00 [facility] PAIN 0 12/22/2024 10:59:00 [facility] PULSE 74 12/22/2024 10:59:00 [facility] RESPIRATION 18 12/22/2024 10:59:00 [facility] BMI 32 kg/m2 04/26/2024 15:00:00 [facility] PAIN 0 04/26/2024 15:00:00 [facility] TEMPERATURE 97.8 04/26/2024 15:00:00 [facility] PULSE 68 04/26/2024 15:00:00 [facility] RESPIRATION 18 04/26/2024 15:00:00 [facility] Encounters Combined list of: 1) Encounters from Department of Veterans Affairs facilities going backup to the last 18 months, not all [facility] inpatient encounters are included; 2) Encounters from the Department of Defense facilities going backup to 280 months. Location Location Details Encounter Type Encounter Number Reason For Visit Attending Provider ADM Date DC Date Status Disposition Source [facility] Outpatient Encounter [id number] TERESA MANRIQUE 02/28 /2024 [place] [facility] [place] [facility] Outpatient Encounter [id number] 09/07 [place] [facility] [place] [facility] Outpatient Encounter [id number] 10/05 [place] [facility] OFFICE O/P EST MOD 30 MIN [id number] Diagnos is: ICD-10- CM R10.9 Unspeci fied abdomin al pain Walter BARRAZA 10/07 [facility] HC PRO PHONE CALL 5-10 MIN [id number] Diagnos is: ICD-10- CM R93.89 Abnorma l finding s on dx imaging of oth body structu res ANGELLA GUSTAFSON 10/08 [facility] Outpatient Encounter [id number] 10/08 [facility] MTMS BY PHARM ADDL 15 MIN [id number] Diagnos is: ICD-10- CM 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 diabete s mellitu s with unspeci fied complic ations Nupur PINK W 10/09 [facility] OFF/OP EST OCTOBER X REQ PHY/QHP [id number] Diagnos is: ICD-10- CM 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 10/21 [facility] Outpatient Encounter [id number] [id number] 11/05 [facility] [place] [facility] Outpatient Encounter [id number] [id number] 11/11 [place] [facility] Outpatient Encounter [id number] [id number] 11/12 [facility] Outpatient Encounter [id number] [id number] 11/19 [facility] Outpatient Encounter [id number] [id number] PRAVEENA BREWER 11/23 [place] [facility] Outpatient Encounter [id number] [id number] 11/25 [facility] Outpatient Encounter [id number] [id number] 11/26 [facility] Outpatient Encounter [id number] 12/04 [facility] Outpatient Encounter [id number] 12/08 [facility]/P EST LOW 20 MIN [id number] Diagnos is: ICD-10- CM 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 IMG RTA DETC/MNTR DS PHY/QHP [id number] [id number] Diagnos is: ICD-10- CM Z13.9 Encount er for screeni ng, unspeci fied MIGUEL RICO S 12/08 [place] [facility] TELEHEALTH FACILITY FEE [id number] [id number] Diagnos is: ICD-10- CM H90.3 Sensori neural hearing loss, bilraoul Le,MILAD PRIESTNDRA A 12/14 [facility] [place] [facility] HEARING AID REPAIR/MOD IFYING [id number] [id number] Diagnos is: ICD-10- CM H90.3 Sensori neural hearing loss, deisy Le,MILAD JEAN CARLOS A 12/14 [place] [facility] Outpatient Encounter [id number] [id number] 12/21 [facility] Outpatient Encounter [id number] [id number] 12/21 [facility] Outpatient Encounter [id number] [id number] 12/21 [facility] Outpatient Encounter [id number] [id number] JASON MUNSON A 12/22 [facility] Outpatient Encounter [id number] [id number] 12/22 [facility] Outpatient Encounter [id number] [id number] 01/07 [facility] Outpatient Encounter [id number] [id number] 01/07 [facility] Outpatient Encounter [id number] [id number] 01/07 [facility] TELEHEALTH FACILITY FEE [id number] Diagnos is: ICD-10- CM Z46.1 Encount er for fitting and adjustm ent of hearing aid MILAD CHOUDHURY A 01/13 [facility] HEAR[facility] AID CHECK BOTH EARS [id number] Diagnos is: ICD-10- CM Z46.1 Encount er for fitting and adjustm ent of hearing aid MILAD CHOUDHURY A 01/13 [facility] HC PRO PHONE CALL 5-10 MIN [id number] Diagnos is: ICD-10- CM R93.89 Abnorma l finding s on dx imaging of oth body structu res ANGELLA GUSTAFSON 01/18 [facility] Outpatient Encounter [id number] [id number] LOUISE LOVING 01/19 [facility] [place] [facility] Outpatient Encounter [id number] 02/05 [facility] Outpatient Encounter [id number] [id number] 02/08 [facility] Outpatient Encounter [id number] [id number] 02/16 [facility] [place] [facility] Outpatient Encounter [id number] [id number] 02/16 [place] [facility] [place] [facility] Outpatient Encounter [id number] [id number] 02/17 [place] [facility] Outpatient Encounter [id number] [id number] 02/23 [facility] Outpatient Encounter [id number] [id number] 1 02/24 [facility] [place] [facility] Outpatient Encounter [id number] [id number] 02/24 [place] [facility] Outpatient Encounter [id number] [id number] 03/04 [facility] Outpatient Encounter [id number] [id number] 03/17 [facility] [place] [facility] Outpatient Encounter [id number] [id number] 03/19 [place] [facility] MTMS BY PHARM ADDL 15 MIN [id number] Diagnos is: ICD-10- CM E78.5 Hyperli pidemia , unspeci fied Nupur PINK 03/19 [facility] Outpatient Encounter [id number] [id number] 03/23 [facility] Outpatient Encounter [id number] [id number] TREVER LIIRANO N 03/28 [facility] Outpatient Encounter [id number] [id number] 03/31 [facility] [place] [facility] Outpatient Encounter [id number] 03/31 [place] [facility] MARK SANON [facility] Outpatient Encounter [id number] GLORIA CONSTANTINO 04/06 [place] AN[place] [facility] [place] [facility] Outpatient Encounter [id number] [id number] 04/08 [place] [facility] Outpatient Encounter [id number] [id number] 04/08 [facility] Outpatient Encounter [id number] 04/08 [facility] [place] [facility] Outpatient Encounter [id number] [id number] 04/12 [place] [facility] [place] [facility] Outpatient Encounter [id number] [id number] 04/19 [place] [facility] Outpatient Encounter [id number] 04/23 [facility] MTMS BY PHARM ADDL 15 MIN [id number] Diagnos is: ICD-10- CM E78.5 Hyperli pidemia , unspeci fied Nupur PINK W 04/26 [facility] OFFICE O/P EST MOD 30 MIN [id number] Diagnos is: ICD-10- CM I50.9 Heart failure , unspeci fied Walter BARRAZA 04/26 [facility] [place] [facility] Outpatient Encounter [id number] 05/26 [place] [facility] Outpatient Encounter [id number] 06/04 [facility] MTMS BY PHARM ADDL 15 MIN [id number] Diagnos is: ICD-10- CM 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 diabete s mellitu s with unspeci fied complic ations JOESPHNupur W 06/07 [facility] Outpatient Encounter [id number] [id number] 06/07 [facility] Outpatient Encounter [id number] [id number] 06/08 [facility] Outpatient Encounter [id number] [id number] [place] RIL L 07/05 [facility] Outpatient Encounter [id number] [id number] 07/07 [facility] PH1 ASSMT&MGMT NQHP 5-10 [id number] Diagnos is: ICD-10- CM R09.81 Nasal congest ion ANGELLA GUSTAFSON R 07/13 [facility] [place] [facility] Outpatient Encounter [id number] [id number] 08/11 [place] [facility] Outpatient Encounter [id number] [id number] 08/12 [facility] [place] [facility] Outpatient Encounter [id number] [id number] Beverly CASTRO A 08/16 [place] [facility] OFFICE O/P EST MOD 30 MIN [id number] Diagnos is: ICD-10- CM 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 diabete s mellitu s with unspeci fied complic ations Walter BARRAZA 08/25 [facility] Outpatient Encounter [id number] [id number] 08/25 [facility] Outpatient Encounter [id number] 09/08 [facility] [place] [facility] Outpatient Encounter [id number] [id number] 09/08 [facility] [id number] [id number] 09/13 [facility] Outpatient Encounter [id number] [id number] 09/16 [facility] MTMS BY PHARM ADDL 15 MIN [id number] Diagnos is: ICD-10- CM 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 diabete s mellitu s with unspeci fied complic ations Nupur PINK W 09/17 [facility] [place] [facility] Outpatient Encounter [id number] 09/22 [facility] En[facility] [id number] [id number] 09/28 [facility] Encounter [id number] [id number] 10/06 [facility] Outpatient Encounter [id number] [id number] 10/13 [facility] Outpatient Encounter [id number] [id number] 10/22 [facility] Outpatient Encounter [id number] [id number] 10/25 [facility] Outpatient Encounter [id number] 10/26 [facility] CB TELEHEALTH FACILITY FEE [id number] Diagnos is: ICD-10- CM Z46.1 Encount er for fitting and adjustm ent of hearing aid MILAD CHOUDHURY A 10/27 [facility] HEARING AID REPAIR/MOD IFYING [id number] [id number] Diagnos is: ICD-10- CM Z46.1 Encount er for fitting and adjustm ent of hearing aid MILAD CHOUDHURYRA A 10/27 [facility] Encounter [id number] [id number] 1 11/04 [facility] Outpatient Encounter [id number] [id number] 11/12 [facility] Outpatient Encounter [id number] [id number] 1 11/23 [facility] NADIRSANJUANITAMARLYI BLAYNEE [facility] Outpatient Encounter [id number] [id number] 12/04 [place] [facility] Outpatient Encounter [id number] [id number] LUISITO HARDEN BERYL Valentin 12/06 [facility] MARK SANON [facility] Outpatient Encounter [id number] GLORIA CONSTANTINON 12/06 [facility]NA [facility] Outpatient Encounter [id number] [id number] 12/08 [facility] Outpatient Encounter [id number] [id number] 12/11 [facility] Encounter [id number] 12/11 SANJUANITALivier ANNA [facility] En[facility] [id number] [id number] 12/15 [place] [facility] Outpatient Encounter [id number] [id number] [place] 12/20 [facility] Outpatient Encounter [id number] [id number] 12/22 [facility] OFFICE O/P EST MOD 30 MIN [id number] Diagnos is: ICD-10- CM 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 diabete s mellitu s with unspeci fied complic atWalter Sarmiento 12/22 [facility] Outpatient Encounter [id number] [id number] TANI ARROYO ANGELLA 12/27 [facility] Outpatient Encounter [id number] [id number] MARY HARRIS Ruben 12/28 [facility] Outpatient Encounter [id number] [place] RIL L 12/29 [facility] Outpatient Encounter [id number] [id number] ADRIAP RIL L 12/31 [facility] [place] [facility] Outpatient Encounter [id number] 01/03 [place] [facility] [place] [facility] Outpatient Encounter [id number] [id number] 01/03 [place] [facility] [place] [facility] Outpatient Encounter [id number] [id number] 01/03 [place] [facility] Outpatient Encounter [id number] 01/04 [facility] Outpatient Encounter [id number] 01/07 [facility] Social History Combined list of available smoking, tobacco, and other social history from Department of Defense and Veterans Affairs facilities. Social History Type Response Date Comment Sourc e Tobacco smoking status NHIS VA-TOBACCO USE FORMER CIGARETTES 08/25/2024 [facility] History of tobacco use VA-TOBACCO NEVER USED OTHER TYPE 08/25/2024 [facility] History of tobacco use VA-TOBACCO FORMER USER 06/13/2023 [facility] History of tobacco use VA-TOBACCO FORMER USER 05/22/2022 [place] [facility] History of tobacco use VA-TOBACCO NEVER USED 05/24/2021 [place] [facility] History of tobacco use VA-TOBACCO FORMER USER 02/07/2020 [place] [facility] History of tobacco use VA-TOBACCO QUIT 1 5 YRS OR MORE 08/04/2018 [place] [facility] History of tobacco use QUIT TOBACCO >7 Y EARS AGO 06/30/2017 [facility] History of tobacco use QUIT TOBACCO >7 Y EARS AGO 09/17/2012 [facility] [facility] History of tobacco use CURRENT NON-TOBAC CO USER-HX OF USE 11/30/2004 [place] [facility] History of tobacco use CURRENT NON-TOBAC CO USER-HX OF USE 07/03/2004 [place] [facility] History of tobacco use CURRENT NON-TOBAC CO USER-HX OF USE 09/01/2003 [facility] History of tobacco use CURRENT NON-TOBAC CO USER-HX OF USE 09/16/2002 [facility] Plan of Care List of future care activities from Department of Veterans Affairs facilities. Additional future care activities may be listed in the Assessment and Plan section. Date/Time Care Activity Care Activity Detail Facili ty 02/02/2025 AMBULATORY - MEDICINE AMBULATORY - MEDICI [facility]
--- OUTSIDE RECORDS SUMMARY | 2025-01-10 08:00 | XMS_ITS | Encounter Summary ---
Author Organization [facility] Address [address] [place] [address] Care Team Providers Care Power Superintendent Name Role Phone Paula Sandoval MD Primary Care Provider + [phone] Reason for Visit * Reason Comments Pacemaker Check Encounter Details Date Type Department Care Team (Late st Contact Info) Description 01/10/2025 8:00 AM CDT Procedure visit [facility] [address] [place] [address] Sotero Alejandro MD [address] [place] [address] Sick sinus syndrome (CMS/HCC) (Primary Dx) [...] ANALYSIS REMOTE, UP TO 90 DAYS Procedure(s): DC REM INTERROG PM/LDLS PM <90 D PHYS/QHP; DC REM INTERROG PM/LDLS PM/IDS <90 DTECH REVIEW Pre-Procedure Diagnose(s): Sick sinus syndrome (CMS/HCC) Remote Transmission Report Date of Procedure: January 10, 2025 Events: 0 recorded episodes. GENA/DIRECTOR RETIREMENT triggered on 12-03-2024. Reviewed with family and they are aware Dr. Alejandro's team will be calling to schedule the gen change. Comments: remote transmission reveals normal dual chamber pacemaker (programmed VVI 65 due to GENA/DIRECTOR RETIREMENT status)function with stable available threshold and impedance trends. Presenting EGM indicates Ventricular Pacing, . Follow-up 3 week wound check post pending gen change. See attached report for details. documented in this encounter Plan of Treatment Upcoming Encounters Date Type Department Care Team (Latest Contact Info) Description 01/17/2025 11:45 AM CDT Appointment [facility] Laboratory Services [address] [facility] [address] [place] [phone] 01/19/2025 3:00 PM CDT Office Visit [facility] [place] [address] [facility] 2 [place] [address] Iqra Brito NP [address] [phone] 01/21/2025 11:00 AM CDT Office Visit [facility] Cardiology Heart [facility] [address] [facility] [address] [place] [address] Lyndsey Dorsey, PORTABLE TRACK CREW CHIEF [address] [facility] [address] [place] [address] 02/07/2025 2:00 PM CDT Hospital Encounter [facility] [address] [place] [address] Clinton Ascencio, DO [address] [facility] [address] [place] [address] 02/07/2025 2:00 PM CDT - 02/07/2025 2:20 PM CDT Surgery [facility] [address] [place] [phone] Clinton Ascencio, DO [address] [facility] [address] [place] [address] ESOPHAGOGASTRODUODENOSCOPY 03/18/2025 11:30 AM CDT Office Visit [facility] Vascular Surgery [place] [address] [facility] [address] [place] [address] Klarissa Flowers MD [address] [facility] [address] [place] [address] Scheduled Procedures Name Priority Associated Diagnoses Date/Ti me ESOPHAGOGASTRODUODENOSCOPY gastric ulcer 02/07/2025 2:00 PM CDT documented as of this encounter Procedures Procedure Name Priority Date/Time Associated Diagnosis Comments DC REM INTERROG PM/LDLS PM/IDS <90 D TECH REVIEW Routine 01/10/2025 7:41 AM CDT Sick sinus syndrome (CMS/HCC) DC REM INTERROG PM/LDLS PM <90 D PHYS/QHP Routine 01/10/2025 7:41 AM CDT Sick sinus syndrome (CMS/HCC) documented in this encounter Results * DC REM INTERROG PM/LDLS PM <90 D PHYS/QHP, DC REM INTERROG PM/LDLS PM/IDS <90 D TECH REVIEW (01/10/2025 7:41 AM CDT) 01/10/2025 7:41 AM CDT Narrative INTERFACE SYSTEM - 01/10/2025 9:18 AM CDT Remote Transmission Report Date of Procedure: January 10, 2025 Events: 0 recorded episodes. GENA/DIRECTOR RETIREMENT triggered on 12-03-2024. Reviewed with family and they are aware Dr. Alejandro's team will be calling to schedule the gen change. Comments: remote transmission reveals normal dual chamber pacemaker (programmed VVI 65 due to GENA/DIRECTOR RETIREMENT status) function with stable available threshold and impedance trends. Presenting EGM indicates Ventricular Pacing, . Follow-up 3 week wound check post pending gen change. See attached report for details. Procedure Note Provider, Historical - 01/10/2025 Remote Transmission Report Date of Procedure: January 10, 2025 Events: 0 recorded episodes. GENA/DIRECTOR RETIREMENT triggered on 12-03-2024. Reviewedwith family and they are aware Dr. Alejandro's team will be calling toschedule the gen change. Comments: remote transmission reveals normal dual chamber pacemaker (programmedVVI 65 due to GENA/DIRECTOR RETIREMENT status) function with stable available threshold andimpedance trends. Presenting EGM indicates Ventricular Pacing, . Follow-up 3 week wound check post pending gen change. See attached report for details. us Sotero Alejandro MD CARDIAC SERVICES ORDERABLES Edited Result - Final INTERFACE SYSTEM Refer to clinic/hospital department documented in this encounter Visit Diagnoses Diagnosis Sick sinus syndrome (CMS/HCC)- Primary Sinoatrial node dysfunction documented in this encounter Care Teams Power Superintendent Relationship Specialty Start Date End Date Paula Sandoval MD [address] [place] [phone] PCP - General Family Practice 10/18/24 documented as of this encounter
--- NOTE | 2025-01-10 11:39 | XRR_ITS ---
PROCEDURE INFORMATION: Exam: XR Chest Exam date and time: 01/10/2025 11:50 AM Age: 79 years old Clinical indication: Shortness of breath; Prior surgery; Surgery date: 6+ months; Surgery type: Pacer cabg; HX of leukemia; Additional info: SOB TECHNIQUE: Imaging protocol: Radiologic exam of the chest. Views: 1 view. COMPARISON: CR (CHEST, ) 12/30/2024 10:05 PM FINDINGS: Tubes, catheters and devices: Median sternotomy suture wires. Multilead pacemaker/defibrillator. Lungs: Poor inspiratory effort with bibasilar hypoventilatory changes. Pleural spaces: Tiny pleural effusions. Heart/Mediastinum: Unremarkable. No cardiomegaly. Bones/joints: Unremarkable. XR/XR chest 1V portable [id number] IMPRESSION: Poor inspiratory effort.
--- OUTSIDE RECORDS SUMMARY | 2025-01-10 11:42 | XMS_ITS | Encounter Summary ---
Author Organization [facility] Address [address] [place] [address] Care Team Providers Care Pari Mutual Ticket Checker Name Role Phone Paula Sandoval MD Primary Care Provider + [phone] Reason for Visit * Reason Onset Date Comments Question 01/06/2025 Returning call about the carelink download 01/06 Encounter Details Date Type Department Care Team (Late st Contact Info) Description 01/06/2025 Telephone [facility] [address] [facility] [address] [place] [address] Sotero Alejandro MD [address] [facility] [address] [place] [address] Question; Returning call about the carelink download Social History Tobacco Use Types Packs/Day Years [...] encounter Miscellaneous Notes * Telephone Encounter - Cody Baltazar - 01/06/2025 4:54 PM CDT Spoke with Valente via phone. Noted that we have rcvd the transfer in, per [employer] website, from [facility]. However, the last transmission is noted from 2022, so his transmitter may not be working. Provider the number to [employer] stay connected, , so he can call to troubleshoot the carelink monitor. If unable to transmit, we will maintain the in clinic device check, scheduled for 3:00pm on 01-10-2025. Noted we will contact Valente and family tomorrow, if the carelink transmission is successful. Notedhe will call stay connected for assistance tomorrow. * Telephone Encounter - Milena Serra - 01/06/2025 3:52 PM CDT Provider: Flavia / Brooke / Daughter / On PHI MESSAGE Calling back to talk to Amado about the carelink download, transferred caller to Amado, thank you. Milena Serra, [facility], Advanced PSR * Telephone Encounter - Cody Baltazar - 01/06/2025 1:09 PM CDT Left VM for patient to please return call, so we can schedule device check. Left VM @ [facility] per continuity of care, requesting follow up phone call for carelink transfer request. documented in this encounter Plan of Treatment Upcoming Encounters Date Type Department Care Team (Latest Contact Info) Description 01/17/2025 11:45 AM CDT Appointment [facility] Laboratory Services [address] [facility] [address] [place] [address] 01/19/2025 3:00 PM CDT Office Visit [facility] Hematology [place] [address] [facility] [address] [place] [phone] Iqra Brito NP [address] [phone] 991- 01/21/2025 11:00 AM CDT Office Visit [facility] [address] [facility] [address] [place] [address] Lyndsey Dorsey, MARCELLO [address] [facility] [address] [place] [address] 02/07/2025 2:00 PM CDT Hospital Encounter [facility] [address] [place] [address] Clinton Ascencio, DO [address] [place] [address] 02/07/2025 2:00 PM CDT - 02/07/2025 2:20 PM CDT Surgery [facility] [address] [place] [address] Clinton Ascencio, DO [address] [facility] [address] [place] [address] ESOPHAGOGASTRODUODENOSCOPY 03/18/2025 11:30 AM CDT Office Visit [facility] Vascular Surgery [place] [address] [facility] [address] [place] [address] Klarissa Flowers MD [address] [facility] [address] [place] [address] Scheduled Procedures Name Priority Associated Diagnoses Date/Ti me ESOPHAGOGASTRODUODENOSCOPY gastric ulcer 02/07/2025 2:00 PM CDT documented as of this encounter Visit Diagnoses Not on filedocumented in this encounter Care Teams Pari Mutual Ticket Checker Relationship Specialty Start Date End Date Paula Sandoval MD [address] [place] [phone] PCP - General Family Practice 10/18/24 documented as of this encounter
--- OUTSIDE RECORDS SUMMARY | 2025-01-10 11:42 | XMS_ITS | Encounter Summary ---
Author Organization [facility] Address [address] [place] [address] Phone Care Team Providers Care Medical Front Desk Coordinator Name Role Phone Alejandro Macias MD Primary Care Provider + [phone] Encounter Details Date Type Department Care Team (Late st Contact Info) Description 12/21/2024 [facility]CM [facility] [address] [place] [address] Smitha Bryan NP [address] [place] [address] Social History Tobacco Use Types Packs/Day Years [...] as of this encounter Progress Notes * Smitha Bryan NP - 12/21/2024 12:00 AM CDT Patient: Valente Renae : 1945 Note Type: Dialysis TCM Service Date: 12/21/2024 The patient was seen for a [id number]-tf-[id number] visit as part of Transitional Care Management services. Attending Electrical Cad Designer: TORY MCRAE Dialysis Location: [facility] Schedule: Shift: 2 INTERACTIVE CONTACT COMMENTS: Seen on HD machine during dialysis rounds HOSPITALIZATION SUMMARY Patient transitioned from: Hospital Patient transitioned to: Home Admit Date: 12/05/2024 Discharge Date: 12/11/2024 Discharged info reviewed: No outstanding diagnostic tests and treatments Reason for admission: Severe sepsis with septic shock Blood loss anemia CLL HOME MEDICATIONS Discharge med list reviewed - changes reconciled and discussed with patient. Active treatment medication orders reviewed - no changes. [facility] atorvastatin 80 mg tablet Take 1 tablet by mouth once a day. [Take late in the day.] carvedilol 3.125 mg tablet Take 1 tablet by mouth once a day as directed. cholecalciferol (vitamin D3) 50 mcg (2,000 unit) tablet Take 1 tablet by mouth once a day. diclofenac sodium 1% gel Apply 4 gram to affected area four times a day as needed for pain. docusate sodium 100 mg capsule Take 1 capsule by mouth twice a day as needed. [For constipation.] finasteride 5 mg tablet Take 1 tablet by mouth once a day. fluticasone propionate 50 mcg/actuation spray,suspension [place] 1 spray into both nostrils twice a day. glucosamine-chondroitin 500-400 mg capsule Take 1/2 capsule by mouth once a day. insulin glargine 100 unit/mL (3 mL) insulin pen Inject subcutaneously. [inject per sliding scale.TId-QID] isosorbide mononitrate 120 mg tablet extended release 24 hr Take 1 tablet by mouth once a day. Lantus U-100 Insulin 100 unit/mL solution Inject 45 unit subcutaneously as directed as needed. loratadine 10 mg tablet Take 1 tablet by mouth once a day. nitroglycerin 0.4 mg tablet, sublingual Place 1 tablet under tongue as needed. [Place 1 tablet under tongue every 5 minutes for chest pain. Do not take more than 3 tablets in 15 minutes.] pantoprazole 40 mg tablet,delayed release (DR/EC) Take 1 tablet by mouth twice a day. [Before meals] Sevelamer Carbonate Tablet 800 mg tablet Take 1 Tablet By Mouth Three times a day With Meals. tamsulosin 0.4 mg capsule Take 2 capsule by mouth once a day. torsemide 100 mg tablet Take 1 tablet by mouth once a day as directed. [Take one tablet on Non-Dialysis Days. Friday/Friday/Friday/Friday] Current [facility] Allergies Allergen: allopurinol Reaction: Unknown Allergen: IODINATED CONTRAST MEDIA Reaction: Unknown Allergen: levofloxacin Reaction: Unknown Allergen: metformin Reaction: Unknown TREATMENT MEDICATIONS ORDERS Epoetin Sarath (Epogen) 5800 units IVP 3X Week During Dialysis 12/07/2024 - 12/06/2025 Heparin Sodium (Porcine) 1,000 Units/mL Catheter Lock Arterial 2000 units Arterial Red Port Every Treatment 04/10/2024 - 04/07/2025 Heparin Sodium (Porcine) 1,000 Units/mL Catheter Lock Venous 2000 units Venous Blue Port Every Treatment 04/10/2024 - 04/07/2025 Heparin Sodium (Porcine) 1,000 Units/mL Systemic 5000 units IVP Every Treatment 05/22/2024 - 05/21/2025 Iron Sucrose (Venofer) 50 mg IVP 1X Week During Dialysis 11/30/2024 - 11/29/2025 Vitamin D (Calcitriol) Oral 0.25 mcg ORAL Every Treatment 12/02/2024 - 11/29/2025 PHYSICAL EXAM Exam performed. Vital Signs Reviewed. Lungs - Clear. CV - Blood pressure noted. CV - Murmur present. No edema. DIALYSIS PRESCRIPTION Dry weight during admission reviewed - no change to EDW. Treatment Data Treatment Date: 12/25/2024 started at: 9:30 AM Dialysate / Machine Temp (prescribed): 37.0*C Dialysate / Machine Temp (actual): 37.3*C BFR (prescribed): 450 BFR (average delivered): 460 DFR (prescribed): Manual 800 DFR (average delivered): 800 Prescribed Time: 04:00 Actual Time: 04:02 EDW (kg): 104.1 Dialyzer: 180NRe Optiflux Dialysate: 3.0 K, 2.5 Ca, 1.0 Mg, 100 Dextrose (N3251) Sodium: 138 Bicarb: 32 Pre Dialysis Vitals Pre BP Sit: 135/64 Pre Wt (kg): 105.7 EDW Deviation (kg): 1.6 Temp: 97.6*F Post Dialysis Vitals Post BP Sit: 117/64 Post Wt (kg): 104.7 CARE COORDINATION Post-discharge follow-up appointments reviewed with the patient. COMMENTS: Denies needs for assistance to appointment EDUCATION Education relevant to the discharge diagnosis provided to the patient or caregiver COMMENTS: Reviewed need to follow with hematology for CLL IMPRESSION & PLAN COMMENTS: Afebrile, VSS, neg chills. Monitor for relapse of symptoms. VISIT DIAGNOSES CPT Code 52863 - High complexity, seen 8-14 days post discharge or moderate complexity, seen [id number] days of discharge. I50.42 Chronic combined systolic (congestive) and diastolic (congestive) heart failure COMMENTS: EF 20-25%. Educated on maintaining fluid intake around 1400 mL daily. Does still urinate, not a large amount. Weigh with each treatment per treatment standards, arrange for UF if weight increasing. Reviewed maintaining care by cardiology. R65.21 Severe sepsis with septic shock COMMENTS: Negative for symptoms, monitor for relapse D62 Acute posthemorrhagic anemia COMMENTS: Reviewed findings with patient: is taking protonix as ordered. Reviewed need to follow with heme/onc given CLL diagnosis as well. Signed by: SMITHA BRYAN NP on 12/27/2024 at 10:40:28 AM Transcribed by: SMITHA BRYAN NP on 12/27/2024 at 10:40:28 AM documented in this encounter Plan of Treatment Not on file documented as of this encounter Visit Diagnoses Not on filedocumented in this encounter Care Teams Medical Front Desk Coordinator Relationship Specialty Start Date End Date Aljeandro Macias MD [address] [place] [address] PCP - General Family Medicine 12/15/18 documented as of this encounter
--- OUTSIDE RECORDS SUMMARY | 2025-01-10 11:42 | XMS_ITS | Encounter Summary ---
Author Organization [facility] Address [address] [place] [address] Care Team Providers Care Integrated Marketing Manager Name Role Phone Paula Sandoval MD Primary Care Provider + [phone] Encounter Details Date Type Department Care Team (Late st Contact Info) Description 01/05/2025 External Device Data STL ABSTRACTION Provider, Abstract NO ADDRESS ON FILE Social [...] Info) Description 01/17/2025 11:45 AM CDT Appointment [facility] [address] [facility] [address] [place] [phone] 01/19/2025 3:00 PM CDT Office Visit [facility] Cancer and Hematology [place] [address] [employer] [facility] 2 [place] [phone] Iqra Brito NP [address] [place] [address] 01/21/2025 11:00 AM CDT Office Visit [facility] [address] [facility] [address] [place] [address] Lyndsey Dorsey, MARCELLO [address] [facility] [address] [place] [address] 02/07/2025 2:00 PM CDT Hospital Encounter [facility] Endoscopy [address] [place] [address] Clinton Ascencio, DO [address] [facility] [address] [place] [address] 02/07/2025 2:00 PM CDT - 02/07/2025 2:20 PM CDT Surgery [facility] Endoscopy [address] [place] [address] Clinton Ascencio, DO 5 [facility] [address] [place] [address] ESOPHAGOGASTRODUODENOSCOPY 03/18/2025 11:30 AM CDT Office Visit [facility] Vascular Surgery [place] [address] [facility] [address] [place] [address] Klarissa Flowers MD [address] [facility] [address] [place] [address] Scheduled Procedures Name Priority Associated Diagnoses Date/Ti me ESOPHAGOGASTRODUODENOSCOPY gastric ulcer 02/07/2025 2:00 PM CDT documented as of this encounter Visit Diagnoses Not on filedocumented in this encounter Care Teams Integrated Marketing Manager Relationship Specialty Start Date End Date Paula Sandoval MD [address] [place] [phone] PCP - General Family Practice 10/18/24 documented as of this encounter
--- OUTSIDE RECORDS SUMMARY | 2025-01-10 11:42 | XMS_ITS ---
Author Organization [facility] Address [address] [facility] [address] [place] [address] Phone Care Team Providers Care Customer Experience Intern Name Role Phone Paula Sandoval MD Primary Care Provider [phone] Active Problems Problem Noted Date Diagnosed Date [...] lobe of lung 03/29/2024 Lesion of right [facility] kidney 03/29/2024 Acute hypoxic respiratory failure 03/29/2024 [...]
--- OUTSIDE RECORDS SUMMARY | 2025-01-10 11:42 | XMS_ITS | Encounter Summary ---
Author Organization [facility] Address [address] [place] [address] Care Team Providers Care Lumber Straightened Name Role Phone Paula Sandoval MD Primary Care Provider + [phone] Reason for Visit * Reason Onset Date Comments 10/21/24 Willian Appt Needs Rescheduled 025 Encounter Details Date Type Department Care Team (Late st Contact Info) Description 09/23/2024 Telephone [facility] [address] [facility] [address] [place] [address] Lyndsey Dorsey, MARCELLO [address] [facility] [address] [place] [address] 10/21/24 Willian Appt Needs Rescheduled Social [...] encounter Miscellaneous Notes * Telephone Encounter - Jayden Susan - 09/23/2024 4:23 PM CDT Provider: Willian Phone: Valente - [phone] MESSAGE 10/21/24 Willian appointment - pt unable to keep this appt due to having dialysis , , and Friday. Please make appt on non dialysis day. Would like appt from 10AM - 3PM please. Thank you. Susan Carpenter, [facility], [facility] documented in this encounter Plan of Treatment Upcoming Encounters Date Type Department Care Team (Latest Contact Info) Description 01/17/2025 11:45 AM CDT Appointment [facility] Laboratory Services [address] [facility] 2 [place] [phone] 01/19/2025 3:00 PM CDT Office Visit [facility] Cancer and Hematology [place] [address] [facility] 2 [place] [phone] Iqra Brito NP [address] [phone] 275- 01/21/2025 11:00 AM CDT Office Visit [facility] [address] [place] [phone] Lyndsey Dorsey, MARCELLO [address] [facility] [address] [place] [address] 02/07/2025 2:00 PM CDT Hospital Encounter Endoscopy [address] [place] [phone] Clintno Ascencio, DO [address] [place] [address] 02/07/2025 2:00 PM CDT - 02/07/2025 2:20 PM CDT Surgery Endoscopy [address] [place] [phone] Clinton Ascencio DO [address] [place] [phone] ESOPHAGOGASTRODUODENOSCOPY 03/18/2025 11:30 AM CDT Office Visit [facility] Vascular Surgery [place] [address] [place] [address] Klarissa Flowers MD [address] [place] [address] Scheduled Procedures Name Priority Associated Diagnoses Date/Ti me ESOPHAGOGASTRODUODENOSCOPY gastric ulcer 02/07/2025 2:00 PM CDT documented as of this encounter Visit Diagnoses Not on filedocumented in this encounter Care Teams Lumber Straightened Relationship Specialty Start Date End Date Paula Sandoval MD [address] [place] [phone] PCP - General Family Practice 10/18/24 documented as of this encounter
--- OUTSIDE RECORDS SUMMARY | 2025-01-10 11:42 | XMS_ITS | Encounter Summary ---
Author Organization [facility] Address [address] [place] [address] Phone Care Team Providers Care Dye Reel Operator Name Role Phone Alejandro Macias MD Primary Care Provider + [phone] Encounter Details Date Type Department Care Team (Late st Contact Info) Description 01/04/2025 [facility] [employer], [facility] [address] [place] [address] Jose L Alexander, FLUTE TEACHER [address] [place] [address] End stage renal disease; Dependence on renal dialysis Social History Tobacco Use Types Packs/Day Years [...] as of this encounter Miscellaneous Notes * Dialysis Note - Jose L Alexander NP - 01/04/2025 12:00 AM CDT BASIC NOTE Patient: Valente Renae : 1945 Note Author: JOSE L ALEXANDER NP Service Date: 01/04/2025 This patient was personally seen for a basic visit as part of routine monthly dialysis care for end stage renal disease. Attending Prism Inspector: TORY MCRAE Dialysis Location: [facility] DIAL[facility] Schedule: Shift: 2 OVERVIEW Patient is stable. Patient has no complaints. COMMENTS: Seen on Dialysis. No concerns. HOME MEDICATIONS Medications reviewed. DIALYSIS PRESCRIPTION Treatment Data Treatment Date: 01/04/2025 started at: 11:29 AM Dialysate / Machine Temp (prescribed): 37.0*C Dialysate / Machine Temp (actual): 36.8*C BFR (prescribed): 450 BFR (actual): 450 DFR (prescribed): Manual 800 DFR (actual): 800 Prescribed Time: 04:00 EDW (kg): 103.5 Dialyzer: 180NRe Optiflux Dialysate: 3.0 K, 2.5 Ca, 1.0 Mg, 100 Dextrose (N3251) Sodium: 138 Bicarb: 32 Pre Dialysis Vitals Pre BP Sit: 129/69 Pre Wt (kg): 104.8 EDW Deviation (kg): 1.3 Temp: 97.6*F Current Dialysis Vitals BP Sit: 149/74 AP/SUPERVISING BROKER: 185/203 Pulse: 90 TREATMENT MEDICATIONS ORDERS Epoetin Sarath (Epogen) 5800 units IVP 3X Week During Dialysis 12/07/2024 - 12/06/2025 Heparin Sodium (Porcine) 1,000 Units/mL Systemic 5000 units IVP Every Treatment 05/22/2024 - 05/21/2025 Vitamin D (Calcitriol) Oral 0.25 mcg ORAL Every Treatment 12/02/2024 - 11/29/2025 BP AND FLUID ASSESSMENT Acceptable blood pressure. Fluid status acceptable. Post BP Sit 138/76 - 01/01/2025 151/79 - 12/30/2024 128/67 - 12/28/2024 Post Wt (kg) 103.2 - 01/01/2025 103.1 - 12/30/2024 103.9 - 12/28/2024 EDW (kg) 104.5 - 01/01/2025 104.5 - 12/30/2024 104.1 - 12/28/2024 Deviation (kg) -1.3 - 01/01/2025 -1.4 - 12/30/2024 -0.2 - 12/28/2024 ADEQUACY ASSESSMENT spKt/V (Daugirdas II) 1.42 (12/30/24) 1.56 (11/25/24) 1.62 (10/28/24) eKdrt/V 1.24 (12/30/24) 1.36 (11/25/24) 1.43 (10/28/24) % Urea Reduction 72 (12/30/24) 76 (11/25/24) 76 (10/28/24) BUN 36 (12/30/24) 36 (12/28/24) 41 (11/25/24) BUN Post Dialysis 10 (12/30/24) 10 (11/25/24) 12 (10/28/24) Creatinine 5.01 (12/28/24) 4.18 (11/25/24) 4.30 (10/28/24) Bicarbonate (CO2) 25 (12/28/24) 25 (11/25/24) 28 (10/28/24) Sodium 141 (12/28/24) 141 (11/25/24) 136 (10/28/24) ACCESS ASSESSMENT Vascular access examined. Current access is permanent and functioning well. [employer]ynthetic - [place] Acuseal Right Upper Arm Active (In Use) - 01/01/2025 Placed - 11/29/2024 ANEMIA ASSESSMENT Hemoglobin 9.3 (12/30/24) 9.2 (12/28/24) 8.9 (12/21/24) Iron Saturation (TSat) 29 (12/28/24) 49 (11/25/24) 24 (10/28/24) Ferritin 516 (12/02/24) 582 (11/25/24) 197 (08/26/24) Iron 60 (12/28/24) 109 (11/25/24) 62 (10/28/24) TIBC 205 (12/28/24) 222 (11/25/24) 259 (10/28/24) Reticulocyte Hemoglobin 33.5 (12/28/24) 33.4 (04/15/24) MCV 106 (12/28/24) 100 (11/25/24) 99 (10/28/24) Folate >24.0 (08/26/24) Vitamin B-12 493 (08/26/24) Platelets 67 (12/28/24) 108 (11/25/24) 115 (10/28/24) BMM ASSESSMENT Calcium 8.3 12/28/24 8.6 11/25/24 8.9 10/28/24 Corrected Calcium 8.5 12/28/24 8.7 11/25/24 9.0 10/28/24 Phosphorus 3.3 12/28/24 4.8 11/25/24 5.1 10/28/24 Calcium Phosphorus Product 27 12/28/24 41 11/25/24 45 10/28/24 PTH 432 11/25/24 275 08/26/24 282 05/27/24 Vitamin D, 25-OH, Total 55.1 08/26/24 Magnesium 2.3 11/25/24 2.1 08/26/24 1.9 05/27/24 Alkaline Phosphatase 103 11/25/24 82 08/26/24 104 05/27/24 Aluminum <5 08/26/24 <5 04/08/24 NUTRITION ASSESSMENT Albumin 3.7 12/28/24 3.9 11/25/24 3.9 10/28/24 Potassium 4.4 12/28/24 4.4 11/25/24 4.8 10/28/24 eNPCR 0.62 12/30/24 0.71 11/25/24 0.86 10/28/24 Hemoglobin A1C 7.1 11/25/24 7.5 08/26/24 7.2 05/27/24 ADDITIONAL LABS WBC 12.39 (12/28/24) 49.30 (11/25/24) 74.45 (10/28/24) Cholesterol 104 (08/26/24) HDL 37 (08/26/24) LDL Calculated 32 (08/26/24) Triglycerides 174 (08/26/24) Hepatitis B Surface Ab <10 (10/28/24) <10 (09/02/24) <10 (08/26/24) ADDITIONAL COMMENT COMMENTS: No changes to POC or oders Signed by: JOSE L ALEXANDER NP on 01/04/2025 at 01:16:56 PM Transcribed by: JOSE L ALEXANDER NP on 01/04/2025 at 01:16:56 PM documented in this encounter Plan of Treatment Not on file documented as of this encounter Visit Diagnoses Diagnosis End stage renal disease Dependence on renal dialysis documented in this encounter Care Teams Dye Reel Operator Relationship Specialty Start Date End Date Alejandro Macias MD [address] [place] [address] PCP - General Family Medicine 12/15/18 documented as of this encounter
--- OUTSIDE RECORDS SUMMARY | 2025-01-10 11:42 | XMS_ITS | Encounter Summary ---
Author Organization [facility] [employer] Address [address] [place] [address] Phone Care Team Providers Care Metallurgical Inspector Name Role Phone Alejandro Macias MD Primary Care Provider + [phone] Encounter Details Date Type Department Care Team (Late st Contact Info) Description 01/06/2025 Orders Only [facility] [employer] [address] [place] [address] Ro West MD [address] [place] [address] Social History Tobacco Use Types [...] as of this encounter Plan of Treatment Not on file documented as of this encounter Procedures Procedure Name Priority Date/Time Associated Diagnosis Comments HEMATOLOGY Routine 01/06/2025 documented in this encounter Results * (ABNORMAL) HEMATOLOGY (01/06/2025) Hemoglobin 9.4(L) 14.0 - 18.0 g/dL [facility] Hemoglobin x 3 28.2(L) 42.0 - 54.0 % [facility] 01/06/2025 01/07/2025 10: 46 AM CDT Narrative SEFER[facility] - 01/07/2025 Unless otherwise specified, test(s) performed at: [facility], [address] [place], [place] [id number] [employer]: Fab French M.D. For any questions, please call customer service at FREQUENCY:OTHER Resulting Agency Comment Specimen source: Blood us Ro West MD LAB BLOOD ORDERABLES Final Re sult [facility] See order comments or contact performing lab Unknown, [place] documented in this encounter Visit Diagnoses Not on filedocumented in this encounter Care Teams Metallurgical Inspector Relationship Specialty Start Date End Date Alejandro Macias MD [address] [place] [address] PCP - General Family Medicine 12/15/18 documented as of this encounter
--- OUTSIDE RECORDS SUMMARY | 2025-01-10 11:42 | XMS_ITS | Clinical Summary ---
Author Organization [facility] Facility Address [address] [address] Care Team Providers Care Materials Coordinator Name Role Phone Alejandro Macias MD Primary Care Provider [phone] Allergies Active Allergy Reactions Criticality Noted Date Comments Allopurinol 12/15/2018 Tamsulosin 12/15/2018 Iodine Other (see comments) 12/15/2018 Metformin 12/15/2018 Medications * This document contains information received from the source organization and may not represent a complete record from that organization. JANUVIA 50 MG tablet Take 50 mg by mouth 1 (one) time each day 3 9 Active nitroglycerin (NITROSTAT) 0.[address] 1 tablet under the tongue Active losartan (COZAAR) 50 MG tablet Take 1 tablet by mouth 1 (one) time each day Active isosorbide mononitrate (IMDUR) 60 MG 24 hr tablet Take 1 tablet by mouth 1 (one) time each day Active insulin glargine (LANTUS) 100 UNIT/ML injection Inject 50 Units under the skin 1 (one) time each day Active fluticasone (FLONASE) 50 MCG/ACT nasal spray Administer 1 spray into each nostril 1 (one) time each day 4 9 Active dutasteride (AVODART) 0.5 MG capsule Take 1 capsule by mouth 1 (one) time each day Active clopidogrel (PLAVIX) 75 MG tablet Take 1 tablet by mouth 1 (one) time each day Active amLODIPine (NORVASC) 10 MG tablet Take 10 mg by mouth daily 3 9 Active acetaminophen (TYLENOL) 325 MG tablet every 4 (four) hours Active Cholecalciferol (VITAMIN D) 2000 units capsule Take 1 tablet by mouth 1 (one) time each day Active insulin regular (NOVOLIN R) 100 UNIT/ML injection as directed Active Magnesium 400 MG tablet 2 (two) times a day Active Ibrutinib (IMBRUVICA) 140 MG capsule Take 1 tablet by mouth 1 (one) time each day Active aspirin 81 MG tablet 1 (one) time each day Active atorvastatin (LIPITOR) 80 MG tablet Take 80 mg by mouth 1 (one) time each day Active isosorbide mononitrate (IMDUR) 30 MG 24 hr tablet Take 30 mg by mouth every night NOTE: Takes 60 mg every morning Active glucosamine-cho ndroitin 500-400 MG tablet Take 1 tablet by mouth 1 (one) time each day Active pantoprazole (PROTONIX) 40 MG EC tablet Take 40 mg by mouth in the morning and 40 mg in the evening. 5 Active carvedilol (COREG) 6.25 MG tablet Take 6.25 mg by mouth in the morning and 6.25 mg in the evening. 4 Active carvedilol (COREG) 3.125 MG tablet Take 1 tablet by mouth in the morning and 1 tablet in the evening. Take with meals. 5 Active Docusate Sodium (DSS) 100 MG capsule Take 100 mg by mouth every 12 hours as needed Active Diclofenac Sodium 1 % gel Apply 4 g topically every 6 hours as needed 4 Active Epoetin Sarath (EPOGEN IJ) Epoetin Sarath (Epogen) 5 07/12/19 26 Active finasteride (PROSCAR) 5 MG tablet Take 5 mg by mouth in the morning. 4 Active loratadine (CLARITIN) 10 MG tablet Take 10 mg by mouth in the morning. 5 Active oxyCODONE-aceta minophen (PERCOCET) 5-325 MG per tablet Take 1 tablet by mouth every 30 minutes as needed 5 Active sevelamer carbonate (RENVELA) 800 MG tablet Take 800 mg by mouth in the morning and 800 mg at noon and 800 mg in the evening. Take with meals. 4 Active tamsulosin (FLOMAX) 0.4 MG 24 hr capsule Take 0.4 mg by mouth 1 (one) time each day 4 Active furosemide (LASIX) 40 MG tablet Take 2 tablets (80 mg total) by mouth in the morning and 2 tablets (80 mg total) in the evening. 360 tablet 1 5 Active furosemide (LASIX) 40 MG tablet Take 80 mg by mouth in the morning and 80 mg in the evening. 4 01/05/20 25 Discontin ued(Reord er (does not appear on AVS)) furosemide (LASIX) 40 MG tablet Take 2 tablets (80 mg total) by mouth in the morning and 2 tablets (80 mg total) in the evening. 360 tablet 1 5 01/05/20 25 Discontin ued(Reord er (does not appear on AVS)) Active Problems Problem Noted Date Diagnosed Date Chronic lymphoid leukemia, disease 11/05/2019 Benign essential hypertension 11/05/2019 Chronic kidney disease stage 4 11/05/2019 Diabetes mellitus 11/05/2019 Nocturia 11/05/2019 Obesity 11/05/2019 Proteinuria 11/05/2019 Encounters Date Type Department Care Team Description 01/06/2025 Orders Only [facility], [facility] [address] [place] [phone] Ro West MD 01/04/2025 11:30 AM CDT Procedure [facility], [address] [address] Fabiola Puente NP End stage renal disease (HCC) (Primary Dx) 01/04/2025 [facility], [address] [id number] Eufemia Rogel MA 01/04/2025 Treatment [facility], [facility] [address] [place] [phone] Fabiola Puente NP End stage renal disease; Dependence on renal dialysis 01/04/2025 Documentation Only [facility], [address] [address] Elenita Zeng 12/30/2024 Orders Only [facility], [facility] [address] [place] [address] Ro West MD 12/28/2024 Orders Only [facility], [facility] [address] [place] [address] Ro West MD 12/28/[address] [place] [address], [facility] [address] [place] [address] Marcela Gomez NP End stage renal disease; Dependence on renal dialysis 12/21/2024 TCM in Dialysis Clinic [address] [place] [address], [facility] [address] [place] [address] Marcela Gomez NP 12/21/2024 Orders Only [facility], [facility] [address] [place] [address] Ro West MD 12/21/2024 Treatment [facility], [facility] [address] [place] [address] Marcela Gomez NP End stage renal disease; Dependence on renal dialysis 12/14/2024 Orders Only [facility], [facility] [address] [place] [address] Ro West MD 12/14/2024 TCM in Dialysis Clinic [address] [place] [address], [facility] [address] [place] [address] Fabiola Puente NP 12/14/[address] [place] [address], [facility] [address] [place] [address] Fabiola Puente NP End stage renal disease; Dependence on renal dialysis 12/13/2024 Telephone [facility], [facility] [address] [place] [address] Sharee Chu MA 12/02/2024 Orders Only [facility], [facility] [address] [place] [address] Ro West MD 11/30/[address] [place] [address], [facility] [address] [place] [address] Fabiola Puente NP End stage renal disease; Dependence on renal dialysis 11/25/2024 Orders Only [facility], [facility] [address] [place] [address] Ro West MD 11/23/[address] [place] [address], [facility] [address] [place] [address] Fabiola Puente NP End stage renal disease; Dependence on renal dialysis 11/18/2024 Orders Only [facility], [facility] [address] [place] [address] Ro West MD 11/18/[address] [place] [address], [facility] [address] [place] [address] Ro West MD End stage renal disease; Dependence on renal dialysis 11/11/2024 Orders Only [facility], [facility] [address] [place] [address] Ro West MD 11/09/2024 Treatment [facility], [facility] [address] [place] [address] Marcela Gomez NP End stage renal disease; Dependence on renal dialysis 11/04/2024 Orders Only [facility], [facility] [address] [place] [address] Ro West MD 11/02/[address] [place], [place] [address]rology [facility], [facility] [address] [place] [address] Fabiola Puente NP End stage renal disease; Dependence on renal dialysis 10/28/2024 Orders Only [facility] [address] [place] [address] Ro West MD 10/26/2024 Treatment [facility] [address] [place] [address] Marcela Gomez NP End stage renal disease; Dependence on renal dialysis 10/21/2024 Orders Only [facility] [address] [place] [address] Ro West MD from Last 3 Months Immunizations Immunization Administration Dates Next Due Influenza TIV (IM) 05/23/2014 Pneumococcal Polysaccharide 06/23/2010 Family History Medical History Relation Comments Heart disease Father Hypertension Father Diabetes Mother Gout Mother Heart disease Mother Hypertension Mother Kidney disease Mother Heart disease Sibling Hypertension Sibling Kidney disease Sibling currently on robel lysis Relation Status Comments Father Mother Sibling Social History Tobacco Use Types Packs/Day Years [...] Sign Reading Time Taken Comments Blood Pressure 140/70 12/15/2018 10:25 AM CDT Pulse 70 12/15/2018 10:25 AM CDT Temperature - - Respiratory Rate - - Oxygen Saturation - - Inhaled Oxygen Concentration - - Weight 108 kg (237 lb 11.2 oz) 12/15/2018 10:25 AM CDT Height 177.8 cm (5' 10 ) 12/15/2018 10:25 AM CDT Body Mass Index 34.11 12/15/2018 10:25 AM CDT Plan of Treatment Health Maintenance Due Date Last Done Comments Hepatitis B Vaccine (1 of 5 - Risk Dialysis 4-dose series) 1965 Diabetes: Ophthalmology Exam 09/11/2019 Diabetes: Pedal Pulse Checked 09/11/2019 Diabetes: Sensory Foot Exam 09/11/2019 Diabetes: Visual Foot Exam 09/11/2019 Influenza Vaccine (#1) 2025 4, 2014, 2012, Additional history exists Diabetes: Hemoglobin A1C 02/25/2025 025, 08/26/2024, 05/27/2024, Additional history exists Pneumococcal Vaccine: 50+ Years Completed 05/24/2021, 03/12/2021, 12/20/2020, Additional history exists Pneumococcal Vaccine: Peds ( 0 to 5 Years) and At-Risk Patients (6 to 49 Years) Discontinued 05/24/2021, 03/12/2021, 12/20/2020, Additional history exists Procedures Procedure Name Priority Date/Time Associated Diagnosis Comments HEMATOLOGY Routine 01/06/2025 [facility] LAB RESULTS Routine 12/30/2024 HD KINETICS Routine 12/30/2024 POST CHEMISTRY Routine 12/30/2024 CHEMISTRY Routine 12/30/2024 HEMATOLOGY Routine 12/30/2024 HEMATOLOGY Routine 12/28/2024 IMMUNO CHEMISTRY Routine 12/28/2024 CHEMISTRY Routine 12/28/2024 HEMATOLOGY Routine 12/21/2024 HEMATOLOGY Routine 12/14/2024 HEMATOLOGY Routine 12/02/2024 CHEMISTRY Routine 12/02/2024 [facility] LAB RESULTS Routine 11/25/2024 HD KINETICS Routine 11/25/2024 POST CHEMISTRY Routine 11/25/2024 SPECIAL CHEMISTRY Routine 11/25/2024 IMMUNO CHEMISTRY Routine 11/25/2024 HEMATOLOGY Routine 11/25/2024 CHEMISTRY Routine 11/25/2024 CHEMISTRY Routine 11/25/2024 HEMATOLOGY Routine 11/18/2024 HEMATOLOGY Routine 11/11/2024 HEMATOLOGY Routine 11/04/2024 [facility] LAB RESULTS Routine 10/28/2024 HD KINETICS Routine 10/28/2024 POST CHEMISTRY Routine 10/28/2024 IMMUNO CHEMISTRY Routine 10/28/2024 HEMATOLOGY Routine 10/28/2024 CHEMISTRY Routine 10/28/2024 HEMATOLOGY Routine 10/21/2024 from Last 3 Months Results * (ABNORMAL) HEMATOLOGY (01/06/2025) Only the most recent of12 resultswithin the time period is included. Hemoglobin 9.4(L) 14.0 - 18.0 g/dL [facility] Hemoglobin x 3 28.2(L) 42.0 - 54.0 % [facility] 01/06/2025 01/07/2025 10: 46 AM CDT Narrative [facility]RA[facility] - 01/07/2025 Unless otherwise specified, test(s) performed at: [facility], [address] [place] [id number] PUBLIC ADMINISTRATION PROFESSOR: Fba French M.D. For any questions, please call customer service at FREQUENCY:OTHER Resulting Agency Comment Specimen source: Blood us Ro West MD LAB BLOOD ORDERABLES Final Re sult Performing Organization Address [facility] Co de Phone Number [facility] See order comments or contact performing lab Unknown, [place] * HD KINETICS (12/30/2024) Only the most recent of3 resultswithin the time period is included. % Urea Reduction 72 65 - 80 % [facility] 12/30/2024 01/01/2025 11: 43 AM CDT Narrative Resulting Agency Comment Specimen source: Plasma us Ro West MD LAB BLOOD ORDERABLES Final Re sult Performing Organization Address [facility] de Phone Number [facility] See order comments or contact performing lab Unknown, [place] * POST CHEMISTRY (12/30/2024) Only the most recent of3 resultswithin the time period is included. BUN Post Dialysis 10 6 - 19 mg/dL [facility] 12/30/2024 01/01/2025 11: 43 AM CDT Narrative [facility]RAE - 01/01/2025 Unless otherwise specified, test(s) performed at: [facility], [address] [place] [id number] PUBLIC ADMINISTRATION PROFESSOR: Fab French M.D. For any questions, please call customer service at FREQUENCY:OTHER Resulting Agency Comment Specimen source: Plasma us Ro West MD LAB BLOOD ORDERABLES Final Re sult Performing Organization Address [facility] de Phone Number [facility] See order comments or contact performing lab Unknown, [place] * (ABNORMAL) [facility] (12/30/2024) Only the most recent of6 resultswithin the time period is included. BUN 36(H) 6 - 19 mg/dL [facility] 12/30/2024 12/31/2024 9:5 9 AM CDT Narrative [facility] - 12/31/2024 Unless otherwise specified, test(s) performed at: [facility], [address] [place] [address] PUBLIC ADMINISTRATION PROFESSOR: Fab French M.D. For any questions, please call customer service at FREQUENCY:OTHER Resulting Agency Comment Specimen source: Serum Ro West MD LAB BLOOD ORDERABLES Final Re sult Performing Organization Address City/[facility]/ZIP Co de Phone Number [facility] See order comments or contact performing lab Unknown, [place] * [facility] Lab Results (12/30/2024) Only the most recent of3 resultswithin the time period is included. Pathologist [facility] eKt/V Gotch 1.24 [facility] e Center nPCR_HD 0.67 [facility] eKdrt/V 1.24 [facility] spKt/V Gotch 1.42 [facility] Center PCR 50.18 [facility] spKt/V (Daugirdas II) 1.42 [facility] eKt/V (Tattersall) 1.24 [facility] WSTDKT/V 2.4 [facility] eNPCR 0.62 [facility] 12/30/2024 12/30/2024 [facility] Ordering Provider LAB BLOOD ORDERABLES Final Result Performing Organization Address [facility] Co de Phone Number [facility] Contact Performing lab Unknown, [place] * IMMUNO CHEMISTRY (12/28/2024) Only the most recent of3 resultswithin the time period is included. Pathologist [facility] Hep B Surface Ag Negative Negative [facility] 12/28/2024 12/29/2024 10: 51 AM CDT Narrative Resulting Agency Comment Specimen source: Serum Ro West MD LAB BLOOD ORDERABLES Final Re sult Performing Organization Address City/[facility]/ZIP Co de Phone Number [facility] See order comments or contact performing lab Unknown, [place] * (ABNORMAL) SPECIAL CHEMISTRY (11/25/2024) Pathologist [facility] Hemoglobin A1C 7.1(H) 4.8 - 5.9 % [facility] 11/25/2024 11/26/2024 10: 21 AM CDT Narrative SEFERINO - 11/26/2024 Unless otherwise specified, test(s) performed at: [facility], [address] [place] [id number] PUBLIC ADMINISTRATION PROFESSOR: Fab French M.D. For any questions, please call customer service at FREQUENCY:MONTHLY Resulting Agency Comment Specimen source: Blood us Ro West MD LAB BLOOD BANK TEST ORDERABLE S Final Result [facility] See order comments or contact performing lab Unknown, [place] from Last 3 Months Insurance [facility] Regions 1,2,3 (VACCN) Care Teams Materials Coordinator Relationship Specialty Start Date End Date Alejandro Macias MD [address] [place], [place] [address] PCP - General Family Medicine 12/15/18
--- OUTSIDE RECORDS SUMMARY | 2025-01-10 11:42 | XMS_ITS | Encounter Summary ---
Author Organization [facility], [facility] Address [address] [place] [address] Phone Care Team Providers Care Traffic And Transport Planner Name Role Phone Alejandro Macias MD Primary Care Provider + [phone] Encounter Details Date Type Department Care Team (Late st Contact Info) Description 03/17/2019 Orders Only [facility] [address] [place] [address] Shine Mcgraw MD Chronic kidney disease stage 4 (HCC) Social History Tobacco Use Types Packs/Day Years [...] Procedure Name Priority Date/Time Associated Diagnosis Comments URINE ALBUMIN / CREATININE RATIO Routine 04/28/2019 9:27 AM EQUIPMENT INSTALLER Chronic kidney disease stage 4 (HCC) PTH, INTACT Routine 04/28/2019 9:27 AM EQUIPMENT INSTALLER Chronic kidney disease stage 4 (HCC) RENAL FUNCTION PANEL Routine 04/28/2019 9:27 AM EQUIPMENT INSTALLER Chronic kidney disease stage 4 (HCC) documented in this encounter Results * PTH, intact (04/28/2019 9:27 AM EQUIPMENT INSTALLER) Parathyroid Hormone, Intact 41 pg/mL Blood specimen (specimen) 04/28/2019 9:27 AM EQUIPMENT INSTALLER Tiburcio Colmenares MA - 05/03/2019 12:43 PM EQUIPMENT INSTALLER .mello garcia Shine Mcgraw MD LAB BLOOD ORDERABLES Fi nal Result * Urine albumin / creatinine ratio (04/28/2019 9:27 AM EQUIPMENT INSTALLER) Creatinine, Urine 80 mg/dL Albumin, Urine 17.1 mg/dL Alb/Creat Ratio, Ur 214.00 mcg/mg Urine specimen (specimen) 04/28/2019 9:27 AM EQUIPMENT INSTALLER Tiburcio Colmenares MA - 05/03/2019 12:42 PM EQUIPMENT INSTALLER .robert garcia Shine Mcgraw MD LAB URINE ORDERABLES Fi nal Result * (ABNORMAL) Renal function panel (04/28/2019 9:27 AM EQUIPMENT INSTALLER) Albumin 4.4 3.5 - 5.0 g/dL BUN 47(A) 4 - 21 mg/dL BUN/Creatinine Ratio 19.00 Calcium 9.5 8.7 - 10.7 mg/dL Chloride 105 99 - 108 Bicarbonate (CO2) 25 22 - 30 mmol/L Creatinine 2.44(A) 0.60 - 1.30 mg/dL eGFR 29.0 mL/min/1.7 3m*2 eGFR Non- 25.0 mL/min/1.7 3m*2 Glucose 85 Phosphorus, Serum 3.9 Potassium 4.4 3.4 - 5.5 Sodium 139 137 - 147 Blood specimen (specimen) 04/28/2019 9:27 AM EQUIPMENT INSTALLER Tiburcio Colmenares MA - 05/03/2019 12:44 PM EQUIPMENT INSTALLER .mello garcia Shine Mcgraw MD LAB BLOOD ORDERABLES Fi nal Result documented in this encounter Visit Diagnoses Diagnosis Chronic kidney disease stage 4 (HCC) documented in this encounter Care Teams Traffic And Transport Planner Relationship Specialty Start Date End Date Alejandro Macias MD [address] [place] [address] PCP - General Family Medicine 12/15/18 documented as of this encounter
--- OUTSIDE RECORDS SUMMARY | 2025-01-10 11:42 | XMS_ITS | Encounter Summary ---
Author Organization [facility], [facility] Address [address] [place] [address] Phone Care Team Providers Care Furnace Combustion Analyst Name Role Phone Alejandro Macias MD Primary Care Provider + [phone] Encounter Details Date Type Department Care Team (Late st Contact Info) Description 12/14/2024 [facility]CM [facility] [address] [place] [address] Jose L Alexander, FIRER LOW PRESSURE [address] [place] [address] Social History Tobacco Use Types [...] as of this encounter Progress Notes * Jose L Alexander NP - 12/14/2024 12:00 AM CDT Patient: Valente Renae : 1945 Note Type: Dialysis TCM Service Date: 12/14/2024 The patient was seen for a tdea-so-lhgl visit as part of Transitional Care Management services. Attending Sql Manager: TORY MCRAE Dialysis Location: [facility] Schedule: Shift: 2 INTERACTIVE CONTACT Contact with the patient or caregiver was made or attempted within 2 business days of discharge - details in the medical record. HOSPITALIZATION SUMMARY Patient transitioned from: Hospital Patient transitioned to: Home Admit Date: 12/04/2024 Discharge Date: 12/11/2024 Discharged info reviewed: Followed-up on or reviewed need for pending tests/treatments as noted Reason for admission: Sepsis COMMENTS: EGD HOME MEDICATIONS Discharge med list reviewed - changes reconciled and discussed with patient. Active treatment medication orders reviewed with changes noted. TREATMENT MEDICATIONS ORDERS Epoetin Sarath (Epogen) 5800 [...] - Clear. CV - Blood pressure noted. No edema. DIALYSIS PRESCRIPTION Dry weight during admission reviewed - no change to EDW. Treatment Data Treatment Date: 12/02/2024 started at: 11:05 AM Dialysate / Machine Temp (prescribed): 37.0*C Dialysate / Machine Temp (actual): 37.0*C BFR (prescribed): 450 BFR (average delivered): 460 DFR (prescribed): Manual 800 DFR (average delivered): 800 Prescribed Time: 04:00 Actual Time: 04:00 EDW (kg): 104.4 Dialyzer: 180NRe Optiflux Dialysate: 3.0 K, 2.5 Ca, 1.0 Mg, 100 Dextrose (N3251) Sodium: 138 Bicarb: 32 Pre Dialysis Vitals Pre BP Sit: 112/57 Pre Wt (kg): 104.9 EDW Deviation (kg): 0.5 Temp: 98.2*F Post Dialysis Vitals Post BP Sit: 127/60 Post Wt (kg): 104.1 CARE COORDINATION Post-discharge follow-up appointments reviewed with the patient. EDUCATION Education relevant to the discharge diagnosis provided to the patient or caregiver IMPRESSION & PLAN COMMENTS: ESRD- continue HD TTS GI bleed- follow up EGD Sepsis- resolved VISIT DIAGNOSES CPT Code 04396 - High complexity, seen within 7 days of discharge. N18.6 End stage renal disease Signed by: JOSE L ALEXANDER NP on 12/14/2024 at 12:03:22 PM Transcribed by: JOSE L ALEXANDER NP on 12/14/2024 at 12:03:22 PM documented in this encounter Plan of Treatment Not on file documented as of this encounter Visit Diagnoses Not on filedocumented in this encounter Care Teams Furnace Combustion Analyst Relationship Specialty Start Date End Date Alejandro Macias MD [address] [place] [address] PCP - General Family Medicine 12/15/18 documented as of this encounter
--- OUTSIDE RECORDS SUMMARY | 2025-01-10 11:42 | XMS_ITS | Encounter Summary ---
Author Organization [facility], [facility] Address [address] [place] [address] Phone Care Team Providers Care Electronic System Engineer Name Role Phone Alejandro Macias MD Primary Care Provider + [phone] Encounter Details Date Type Department Care Team (Late st Contact Info) Description 01/04/2025 [facility] [address] [place] [address] Eufemia Rogel, [place] [address] [place] [address] Social History Tobacco Use Types [...] on filedocumented in this encounter Care Teams Electronic System Engineer Relationship Specialty Start Date End Date Alejandro Macias MD [address] [place] [address] PCP - General Family Medicine 12/15/18 documented as of this encounter
--- OUTSIDE RECORDS SUMMARY | 2025-01-10 11:42 | XMS_ITS | Encounter Summary ---
Author Organization [email or web address] Address [address] [place] [address] Care Team Providers Care Ged Preparation Teacher Name Role Phone Paula Sandoval MD Primary Care Provider + [phone] Encounter Details Date Type Department Care Team (Late st Contact Info) Description 01/04/2025 External Device Data [facility] ABSTRACTION Provider, Abstract [...] Info) Description 01/17/2025 11:45 AM CDT Appointment [facility] [address] [facility] [address] [place] [phone] 01/19/2025 3:00 PM CDT Office Visit [facility] Cancer and Hematology [place] [address] [facility] [address] [place] [phone] Iqra Brito NP [address] [place] [address] 01/21/2025 11:00 AM CDT Office Visit [facility] [address] [place] [address] Lyndsey Dorsey, MARCELLO [address] [facility] [address] [address] [place] [address] 02/07/2025 2:00 PM CDT Hospital Encounter [facility] Endoscopy [address] [place] [address] Clinton Ascencio, DO [address] [facility] [address] [place] [address] 02/07/2025 2:00 PM CDT - 02/07/2025 2:20 PM CDT Surgery [facility] Endoscopy [address] [place] [address] Clinton Ascencio, DO 5 [facility] [address] [place] [address] ESOPHAGOGASTRODUODENOSCOPY 03/18/2025 11:30 AM CDT Office Visit [facility] Vascular Surgery [place] [address] [facility] [address] [place] [address] Klarissa Flowers MD [address] [facility] [address] [place] [address] Scheduled Procedures Name Priority Associated Diagnoses Date/Ti me ESOPHAGOGASTRODUODENOSCOPY gastric ulcer 02/07/2025 2:00 PM CDT documented as of this encounter Visit Diagnoses Not on filedocumented in this encounter Care Teams Ged Preparation Teacher Relationship Specialty Start Date End Date Paula Sandoval MD [address] [place] [phone] PCP - General Family Practice 10/18/24 documented as of this encounter
--- OUTSIDE RECORDS SUMMARY | 2025-01-10 11:42 | XMS_ITS | Clinical Summary ---
Author Organization [facility] Address [address] [facility] [address] [place] [address] Phone Care Team Providers Care Bowling Ball Mold Assembler Name Role Phone Paula Sandoval MD Primary Care Provider Allergies Active Allergy Reactions Criticality Noted Date [...] Constipation. Active fluticasone propionate (FLONASE) 50 mcg/spray [place], Suspension nasal inhaler Administer 1 [place] in each nostril 2 times daily. Active [...] daily. 30 Tablet 04/06/2024 1:52 PM CDT 04/06/20 24 Active Additional Information Patient taking differently:80 mg OralDAILY LATE, Reported on 01/03/2025 furosemide (LASIX) 40 mg tablet Take 2 Tablets (80 mg) by mouth two times daily, 7 hours apart. 120 Tablet 04/06/2024 1:52 PM CDT 04/06/20 24 Active isosorbide mononitrate (IMDUR) 120 mg Extended Release 24 hour tablet Take 1 Tablet by mouth. 04/27/20 24 Active sevelamer carbonate (RENVELA) 800 mg Tablet Take 800 mg by mouth. 04/14/20 24 Active glucosamine-cho ndroitin (ARTHX DS) 500-400 mg Capsule Take 1 Capsule by mouth. Active carvediloL (COREG) 6.25 mg tablet Take 1 Tablet (6.25 mg) by mouth every 12 hours. 90 Tablet 3 07/21/19 25 Active epoetin janet (EPOGEN INJECTION) Epoetin Janet (Epogen) 11/10/19 25 026 Active carvediloL (COREG) 3.125 mg tablet Take 1 Tablet by mouth. 10/27/19 25 Active oxyCODONE-aceta minophen (PERCOCET) 5-325 mg tabletIndicatio ns:ESRD (end stage renal disease) (CMS/HCC) Take 1 Tablet by mouth every 4 hours as needed for Pain, Moderate. Max Daily Amount: 6 Tablets 15 Tablet 11/29/2024 11:43 AM CDT 11/30/19 25 Active pantoprazole (PROTONIX) 40 mg Tablet, Delayed Release (E.C.) Take 1 Tablet (40 mg) by mouth 2 times daily. 60 Tablet 12/12/19 25 Active folic acid (FOLVITE) 1 mg tablet Take 1 mg by mouth daily. Active pirtobrutinib (Jaypirca) 50 mg TabletIndicatio ns:CLL (chronic lymphocytic leukemia) (CMS/HCC) Take 1 tablet (50mg) by mouth daily. 90 Tablet 01/11/20 25 Active pirtobrutinib (Jaypirca) 50 mg TabletIndicatio ns:CLL (chronic lymphocytic leukemia) (CMS/HCC) Take 1 tablet (50mg) by mouth daily. 90 Tablet 12/24/19 25 025 Discontin ued(Reord er) Active Problems Problem Noted Date Diagnosed Date [...] lobe of lung 03/29/2024 Lesion of right [place] kidney 03/29/2024 Acute hypoxic respiratory failure 03/29/2024 Anemia 03/29/2024 Thrombocytopenia 03/29/2024 Impaired mobility 02/02/2021 CLL (chronic lymphocytic leukemia) 02/02/2021 History of COVID-19 02/02/2021 Generalized muscle weakness 01/30/2021 Acute cystitis without hematuria 01/30/2021 Stage 4 chronic kidney disease 11/05/2019 Chronic lymphocytic leukemia 11/05/2019 Encounters Date Type Department Care Team Description 5 8:00 AM CDT Procedure visit [facility] [address] [place] [phone] Sotero Alejandro MD Sick sinus syndrome (CMS/HCC) (Primary Dx) 5 [facility] [place] [address] [address] Umm Dotson DO CLL (chronic lymphocytic leukemia) ([facility]/HCC) 5 Telephone [place] [address] [place] [phone] Sotero Alejandro MD Question 5 Telephone [place] [address] [place] [phone] Sotero Alejandro MD Question 5 [facility] [address] [place] [phone] Wendi Bauman PHARMACIST 5 [facility] [place] [address] [address] [place] [address] Umm Dotson DO 5 Telephone [facility] [address] [place] [phone] Sotero Alejandro MD Pacemaker has been transferred 5 Telephone [place] [address] [place] [phone] Sotero Alejandro MD Question 5 Telephone [place] [address] [place] [phone] Sotero Alejandro MD Question; Returning call about the carelink download 5 External Device Data STL ABSTRACTION Provider, Abstract 5 External Device Data STL ABSTRACTION Provider, Abstract 5 External Device Data STL ABSTRACTION Provider, Abstract 5 External Device Data STL ABSTRACTION Provider, Abstract 5 3:30 PM CDT Video Visit [facility] [place] [address] [place] [address] 2 [place] [address] Iqra Brito NP CLL (chronic lymphocytic leukemia) ([facility]/HCC) (Primary Dx); ESRD (end stage renal disease) on dialysis ([facility]/HCC); Encounter for education; Gastric ulcer, unspecified chronicity, unspecified whether gastric ulcer hemorrhage or perforation present 5 Orders Only [facility] Gastroenterology - [place] [address] [address] [facility] [address] [place] [phone] Clinton Ascencio DO Gastric ulcer with hemorrhage, unspecified chronicity (Primary Dx) 5 12:00 PM CDT Office Visit [facility] [place] [address] [place] [phone] Umm Dotson, CLL (chronic lymphocytic leukemia) ([facility]/HCC) (Primary Dx) 5 Orders Only [facility] [place] [facility] [address] [place] [phone] Umm Dotson DO CLL (chronic lymphocytic leukemia) ([facility]/HCC) (Primary Dx) 5 Orders Only [facility] [address] [facility] 2 [place] [address] Umm Dotson DO CLL (chronic lymphocytic leukemia) ([facility]/HCC) (Primary Dx) 5 1:45 PM CDT Office Visit [facility] Vascular Surgery [place] [address] [address] [facility] [address] [place] [address] Klarissa Flowers MD ESRD (end stage renal disease) ([facility]) (Primary Dx); S/P arteriovenous (AV) graft placement 5 Telephone [facility] Vascular Surgery [place] [address] [place] [phone] Klarissa Flowers MD Question 5 Orders Only [facility] HIM [address] [place] [phone] Provider, Abstract 5 10:50 AM CDT Anesthesia Event [facility] Endoscopy [address] [place] [phone] Tariq Ruggiero MD Edwards, Cary Dawn, RUBIN 5 8:20 AM CDT - 5 8:40 AM CDT Surgery [facility] Endoscopy [address] [place] [phone] Clinton Ascencio, DO ESOPHAGOGASTRODUODENOSCOPY 5 External Device Data STL ABSTRACTION Provider, Abstract 5 Travel 5 12:47 AM CDT - 5 8:00 PM CDT Hospital Encounter [facility] 3D Medical Telemetry [address] [place] [phone] Jim Asif MD Pendurthi, MD Francisco Hurst Ammar, MD Shah, MD Jason Dominguez, Ruperto Junior MD Severe sepsis with septic shock ([facility]) Discharge Disposition: Home or Self Care 5 7:30 AM CDT Anesthesia Event [facility] Operating Room [address] [place] [phone] Jeffry Walker MD 5 7:20 AM CDT - 5 9:09 AM CDT Surgery [facility] Operating Room [address] [place] [address] Klarissa Flowers MD ARTERIOVENOUS GRAFT INSERTION 5 5:30 AM CDT - 5 12:05 PM CDT Hospital Encounter [facility] 3J Pre-Op [address] [place] [phone] Klarissa Flowers MD End stage renal disease ([facility]/HCC) Discharge Disposition: Home or Self Care 5 Prep for Surgery [facility] Vascular [address] [phone] Klarissa Flowers MD ESRD (end stage renal disease) ([facility]) (Primary Dx) 5 Telephone [facility] Vascular [address] [phone] Klarissa Flowers MD Surgery Talk 5 Telephone [facility] Vascular [address] [phone] Klarissa Flowers MD Erroneous encounter-disregard 5 Orders Only [facility] Vascular [address] [phone] Klarissa Flowers MD ESRD (end stage renal disease) ([facility]/HCC) (Primary Dx); Encounter for pre-operative examination; Abnormal coagulation profile 5 Telephone [facility] Vascular [address] [phone] Klarissa Flowers MD Appointment Notification 5 12:30 PM CDT Office Visit [facility] Vascular [address] [phone] Klarissa Flowers MD ESRD (end stage renal disease) ([facility]/HCC) (Primary Dx); Dilated cardiomyopathy ([facility]/HCC); Type 2 diabetes mellitus with stage 4 chronic kidney disease, with long-term current use of insulin ([facility]); Acute combined systolic and diastolic congestive heart failure ([facility]/HCC); Coronary artery disease involving [place] coronary artery of [place] heart without angina pectoris 5 11:00 AM CDT Ancillary Procedure [facility] Vascular Lab and Vein Center- [place] [address] [place] [address] Klarissa Flowers MD Benign hypertension with ESRD (end-stage renal disease) ([facility]) 5 Telephone [facility] Vascular Surgery [address] [place] [phone] Klarissa Flowers MD Appointment Verification 5 Telephone [facility] Vascular Surgery [place] [address] [place] [address] Klarissa Flowers MD Question 5 Telephone [facility] [address] [place] [phone] Sotero Alejandro MD Follow Up; Question; Michelle returning a call 5 Telephone [facility] [address] [place] [phone] Sotero Alejandro MD Information; Follow Up 5 11:15 AM CDT Procedure visit [facility] [address] [place] [phone] Sotero Alejandro MD Chronic combined systolic and diastolic heart failure ([facility]/HCC) (Primary Dx); SSS (sick sinus syndrome) ([facility]) 5 11:15 AM CDT Office Visit [facility] [address] [place] [phone] Sotero Alejandro MD SSS (sick sinus syndrome) ([facility]) (Primary Dx) 5 Abstract [facility] [address] [facility] [address] [place] [address] Scanning, Provider 5 Orders Only [facility] [address] [facility] [address] [place] [phone] Sotreo Alejandro MD Chronic combined systolic and diastolic heart failure (CMS/HCC) (Primary Dx); SSS (sick sinus syndrome) (CMS/HCC) from Last 3 Months Immunizations Immunization Administration Dates Next Due (ADACEL/BOOSTRIX)(10 YR UP) TDAP VACCINE, 0.5ML, IM 12/20/2020 (HEPLISAV-B)(18 YR UP) HEPAT ITIS B VACCINE CPG-ADJUVANTED (HEPB-CPG) 2-4 DOSE, IM 04/29/2024 (PFIZER)(12 YR UP) COVID-19 VACCINE - EMERGENCY USE AUTHORIZATION, MRNA, [id number](PF) 30 MCG/0.3 ML IM SUSP 08/18/2020,07/24/2020,06/23/2020 (PNEUMOVAX [...] 01/17/2025 11:45 AM CDT Appointment [facility] [address] [facility] 2 [place] [phone] 01/19/2025 3:00 PM CDT Office Visit [facility] [place] [address] [facility] 2 [place] [address] Iqra Brito NP [address] [phone] 01/21/2025 11:00 AM CDT Office Visit [facility] [address] [facility] [address] [place] [phone] Lyndsey Dorsey NP [address] [facility] [address] [place] [address] 02/07/2025 2:00 PM CDT Hospital Encounter [facility] Endoscopy [address] [place] [phone] Clinton Ascencio, DO [address] [facility] [address] [place] [phone] 02/07/2025 2:00 PM CDT - 02/07/2025 2:20 PM CDT Surgery [facility] Endoscopy [address] [place] [phone] Clinton Ascencio, DO [address] [facility] [address] [place] [address] ESOPHAGOGASTRODUODENOSCOPY 03/18/2025 11:30 AM CDT Office Visit [facility] Vascular Surgery [place] [address] [facility] [address] [place] [address] Klarissa Flowers MD [address] [facility] [address] [place] [address] Scheduled Procedures Name Priority Associated Diagnoses Date/Ti me ESOPHAGOGASTRODUODENOSCOPY gastric ulcer 02/07/2025 2:00 PM CDT Health Maintenance Due Date Last Done Comments DIABETES ANNUAL FOOT EXAM 1963 RSV VACCINE (60+ or ) (1 - 1-dose 75+ series) 2019 COVID-19 Vaccine (2023-2 5 season) 2024 08/18/2020, 07/24/2020, 06/23/2020 DIABETES ANNUAL RETINAL EXAM 12/08/2024, 12/09/2023, 10/16/2016, Additional history exists INFLUENZA VACCINE (#1) 2025 , 06/09/2024, 03/12/2021, Additional history exists DIABETES MICROALBUMIN ANNUAL SCREEN 03/29/2025 03/29/2024 LDL CHOLESTEROL ANNUAL 03/29/2025 03/29/2024, 2020 DIABETES HBA1C Q 6 MONTHS 06/02/20252024, 04/08/2024, 03/29/2024, Additional history exists DTAP/TDAP/TD VACCINES (3 - T d or Tdap) 12/20/2030 12/20/2020, 06/04/2007, 11/30/2004 COLORECTAL SCREENING Discontinued 02/14/2016, 02/14/20 16 Colorectal Cancer Screening Discontinued PNEUMOCOCCAL VACCINE 50+ YEARS Completed 1 07/25/2020, 03/12/2021, 12/20/2020, Additional history exists ZOSTER VACCINE Completed 05/24/2021, 02/22, 03/07/2021 FIT-DNA Q 3 years Discontinued FIT/FOBT Q 1 year Discontinued Flex Sig/CT Colonography Q 5 years Discontinued Medical Devices Implanted Type Area Colloid Mill Operator Device Identifier Shelf Expiration Date Model / Serial / Lot Cath Dialysis Glidepath 14.5fr 23cm Std [id number] - [id number] Implanted:Qty: 1 on 04/01/2024 by Kim Flowers MD at [facility] Catheter Right: Chest BARD NUVIA VASC [id number] 09/20/2025 [id number] / / [id number] Clip Ligating Horizon Red [id number] - Csc - [id number] Implanted:Qty: 1 on 11/29/2024 by Klarissa Flowers MD at [facility] Clip Right: Arm [employer] [id number] 08/06/2029 [id number] / / [id number] Clip Ligating Horizon Med Ti 548564 - Csc - [id number] Implanted:Qty: 1 on 11/29/2024 by Klarissa Flowers MD at [facility] Clip Right: Arm TELE[employer]LEX- WECK CL[employer]URE SYS [id number] 05/30/2029 [id number] / / [id number] Graft Vasc Propaten [id number] - [id number] Implanted:Qty: 1 on 11/29/2024 by Klarissa Flowers MD at [facility] Graft Right: Arm [employer] [id number] 07/19/2027 [id number] / [id number] / Agent Hemostat Surgicel 2x3in 1952s - [id number] Implanted:Qty: 1 on 11/29/2024 by Klarissa Flowers MD at [facility] Hemostatic Right: Arm [employer] [id number] 09/20/20281952S / / [id number] Pacemaker Procedures Procedure Name Priority Date/Time Associated Diagnosis Comments TN REM INTERROG PM/LDLS PM/I DS <90 D TECH REVIEW Routine 01/10/2025 7:41 AM CDT Sick sinus syndrome (CMS/HCC) TN REM INTERROG PM/LDLS PM < 90 D PHYS/QHP Routine 01/10/2025 7:41 AM CDT Sick sinus syndrome (CMS/HCC) TELEMETRY REPORT 12/13/2024 3:48 PM CDT POC [...] Recently Relevant to Health Maintenance Results * TN REM INTERROG PM/LDLS PM <90 D PHYS/QHP, TN REM INTERROG PM/LDLS PM/IDS <90 D TECH REVIEW (01/10/2025 7:41 AM CDT) 01/10/2025 7:41 AM CDT Narrative INTERFACE SYSTEM - 01/10/2025 9:18 AM CDT Remote Transmission Report Date of Procedure: January 10, 2025 Events: 0 recorded episodes. GENA/COMMAND POST CRAFTSMAN triggered on 12-03-2024. Reviewed with family and they are aware Dr. Alejandro's team will be calling to schedule the gen change. Comments: remote transmission reveals normal dual chamber pacemaker (programmed VVI 65 due to GENA/COMMAND POST CRAFTSMAN status) function with stable available threshold and impedance trends. Presenting EGM indicates Ventricular Pacing, . Follow-up 3 week wound check post pending gen change. See attached report for details. Procedure Note Provider, Historical - 01/10/2025 Remote Transmission Report Date of Procedure: January 10, 2025 Events: 0 recorded episodes. GENA/COMMAND POST CRAFTSMAN triggered on 12-03-2024. Reviewedwith family and they are aware Dr. Alejandro's team will be calling toschedule the gen change. Comments: remote transmission reveals normal dual chamber pacemaker (programmedVVI 65 due to GENA/COMMAND POST CRAFTSMAN status) function with stable available threshold andimpedance trends. Presenting EGM indicates Ventricular Pacing, . Follow-up 3 week wound check post pending gen change. See attached report for details. us Sotero Alejandro MD CARDIAC SERVICES ORDERABLES Edited Result - Final INTERFACE SYSTEM Refer to clinic/hospital department * TELEMETRY REPORT (12/13/2024 3:48 PM CDT) Only the most recent of2 resultswithin the time period is included. us Provider Scanning ECG ORDERABLES Final Result * POC GLUCOSE (12/11/2024 5:46 PM CDT) Only the most recent of38 resultswithin the time period is included. GLUCOSE POC 99 74 - 99 mg/dL 12/11/2024 5:46 PM CDT [facility] SPECIMEN SOURCE, GLUCOSE POC Capillary 12/11/2024 5:46 PM CDT [facility] Blood, whole 12/11/2024 5:46 PM CDT 12/11/2024 6:17 PM CDT us Ruperto Gomez MD POINT OF CARE TESTING Fi nal Result Performing Organization Address [facility] Co de Phone Number [facility] CLIA # [id number] [address] [place] [address] [place] [address] * HEMODIALYSIS (12/11/2024 12:00 PM CDT) Narrative [facility] - 12/11/2024 12:00 PM CDT Jim Farooq MD 12/11/2024 12:22 PM [facility] - Procedure Note Primary Supervisor Instrument Mechanics: Dr. Ro West PROCEDURE: Intermittent Hemodialysis INDICATION: [...] stores adequate tsat 29% Addy Jacobs NP [facility] 12/11/24, 12:00 PM us Dustin Michel ANP DIALYSIS ORDERABLES Final Res ult Performing Organization Address [facility]/ZIP Co de Phone Number [facility] CLIA # [id number] [address] [place], [place] [address] * (ABNORMAL) MANUAL DIFFERENTIAL (12/11/2024 10:03 AM CDT) Only the most recent of10 resultswithin the time period is included. SEGMENTED NEUTROPHILS 3(L) 36 - 66 % 12/11/2024 11:25 AM CDT [facility] LYMPHOCYTES RELATIVE 97(H) 24 - 44 % 12/11/2024 11:25 AM CDT [facility] PLATELET EST. Decreased 12/11/2024 11:25 AM CDT [facility] NEUTROPHILS ABSOLUTE COUNT 1.78(L) 2.00 - 8.00 K/uL 12/11/2024 11:25 AM T [facility] LYMPHOCYTES ABSOLUTE 57.52(H) 1.20 - 4.00 K/uL 12/11/2024 11:25 AM CDT [facility] ATYPICAL LYMPHS ABSOLUTE 12/11/2024 11:25 AM CDT [facility] ANISOCYTOSIS 2+ /hpf 12/11/2024 11:25 AM CDT [facility] POIKILOCYTES 1+ /hpf 12/11/2024 11:25 AM T [facility] MACROCYTES 1+ /hpf 12/11/2024 11:25 AM T [facility] TOTAL CELLS COUNTED IN DIFF 100 12/11/2024 11:25 AM T [facility] Blood Venipuncture / Unknown 12/11/2024 10:03 AM CDT 12/11/2024 10:37 AM CDT Ruperto Gomez MD HEMATOLOGY ORDERABLES CO M Final Result [facility] CLIA # [id number] [address] [facility] [place] [address] * (ABNORMAL) CBC WITH DIFFERENTIAL (12/11/2024 10:03 AM CDT) Only the most recent of10 resultswithin the time period is included. WBC 59.3(H) 4.8 - 10.8 K/uL 12/11/2024 11:25 AM [facility] RBC 2.30(L) 4.60 - 6.20 M/uL 12/11/2024 11:25 AM T [facility] HEMOGLOBIN 7.3(L) 14.0 - 18.0 g/dL 12/11/2024 11:25 AM [facility] HEMATOCRIT 23.5(L) 41.0 - 53.0 % 12/11/2024 11:25 AM [facility] MCV 102.2 84.0 - 103.0 fL 12/11/2024 11:25 AM [facility] MCH 31.7 27.0 - 34.0 pg 12/11/2024 11:25 AM [facility] MCHC 31.1 30.0 - 35.0 g/dL 12/11/2024 11:25 AM [facility] PLATELETS 72(L) 140 - 440 K/uL 12/11/2024 11:25 AM [facility] MPV 11.3 8.9 - 12.8 fL 12/11/2024 11:25 AM [facility] RDW 18.3(H) 11.0 - 14.5 % 12/11/2024 11:25 AM [facility] RDW-STDEV 67.4(H) 37.0 - 54.0 fL 12/11/2024 11:25 AM [facility] SMEAR REVIEWED: - See Manual Diff. 12/11/2024 11:25 AM [facility] Blood Venipuncture / Unknown 12/11/2024 10:03 AM CDT 12/11/2024 10:37 AM CDT us Ruperto Gomez MD HEMATOLOGY ORDERABLES Fi nal Result [facility] JANICE # [id number] [address] [facility] [place] [address] * (ABNORMAL) RENAL FUNCTION PANEL (12/11/2024 8:58 AM CDT) Pathologist [facility] SODIUM 134(L) 136 - 145 mmol/L 12/11/2024 9:55 AM CDT [facility] POTASSIUM 4.2 3.5 - 5.1 mmol/L 12/11/2024 9:55 AM CDT [facility] CHLORIDE 96(L) 98 - 107 mmol/L 12/11/2024 9:55 AM CDT [facility] CO2 22 22 - 29 mmol/L 12/11/2024 9:55 AM CDT [facility] CALCIUM 8.2(L) 8.8 - 10.2 mg/dL 12/11/2024 9:55 AM CDT [facility] BUN 59(H) 8 - 23 mg/dL 12/11/2024 9:55 AM CDT [facility] CREATININE 5.39(H) 0.67 - 1.17 mg/dL 12/11/2024 9:55 AM T [facility] Comment:The GFR result is no t clinically significant on patients <18 or >70 years of age. GLUCOSE 196(H) 74 - 99 mg/dL 12/11/2024 9:55 AM CDT [facility] ALBUMIN 3.8 3.5 - 5.2 g/dL 12/11/2024 9:55 AM CDT [facility] PHOSPHORUS 6.0(H) 2.5 - 4.5 mg/dL 12/11/2024 9:55 AM CDT [facility] GFR 10 mL/min/1. 73 sq meter 12/11/2024 9:55 AM T [facility] Comment:eGFR calculated with 2020 CKD-EPI equation. Vegetarian diet, extremely high or low muscle mass, and may affect results. Cystatin C with Glomerular Filtration Rate is a suitable alternative for these patients. ANION GAP 16 9 - 20 mmol/L 12/11/2024 9:55 AM CDT [facility] Blood Venipuncture / Unknown 12/11/2024 8:58 AM CDT 12/11/2024 9:25 AM CDT us Ro West MD CHEMISTRY ORDERABLES Final Result Performing Organization Address [facility] de Phone Number [facility] CLIA # [id number] [address] [place], [place] [address] * (ABNORMAL) HEMOGLOBIN AND HEMATOCRIT (12/10/2024 8:11 PM CDT) [facility] HEMOGLOBIN 7.6(L) 14.0 - 18.0 g/dL 12/10/2024 8:49 PM CDT [facility] [facility] HEMATOCRIT 25.0(L) 41.0 - 53.0 % 12/10/2024 8:49 PM CDT [facility] Blood Venipuncture / Unknown 12/10/2024 8:11 PM CDT 12/10/2024 8:32 PM CDT Jazmin Lema MD HEMATOLOGY ORDERABLES Final Result Performing Organization Address [facility] Co de Phone Number [facility] CLIA # [id number] [address] [place], [place] [address] * UPPER ENDOSCOPY REPORT (12/10/2024 11:09 AM CDT) Narrative Procedure Note Clinton Ascencio, DO - 12/10/2024 11:09 AM CDT [facility] GI Patient Name: Nisa Renae [...] Withdrawal Time Scope In: Scope Out: [address] [place], [place] Clinton Ascencio DO GI PROCEDURE ORDERABLES Final Result * PATHOLOGY (12/10/2024 11:00 AM CDT) CASE REPORT Surgical Pathology Report Case: [id number] Authorizing Provider: Clinton Ascencio DO Collected: 12/10/2024 11:00 AM Ordering Location: [facility] Received: 12/10/2024 03:55 PM Endoscopy Pathologist: Izaiah Sandoval MD Specimen: Stomach, ulcers 11:19 AM [facility] FINAL DIAGNOSIS A. 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 pylori by immunohistochemistry REV: GERMAIN Sandoval MD [id number] 11:19 AM [facility] at 1119 CDT DIAGNOSIS COMMENT The patient's clinical history of CLL/SLL is noted. It is unclear if the fragment of ulcer bed is from the stomach or possibly a contaminant. Clinical and endoscopic correlation is recommended. 11:19 AM [facility] GROSS DESCRIPTION A. Received in formalin labeled Renae -stomach ulcers are two fragments of tissue up to 0.4 cm. The specimen is submitted in toto in A1. Elif Shine 11:19 AM [facility] MICROSCOPIC DESCRIPTION After review of H&E stained [...] highlight polytypic plasma cells. 5 11:19 AM [facility] OPERATIVE PROCEDURE 1: ESOPHAGOGASTRODUODENOSCO PY 5 11:19 AM [facility] CLINICAL INFORMATION A Bxs of gastric ulcers Bxs of gastric ulcers 5 11:19 AM [facility] COMMENT The [email or web address] voice-activated dictation system may have been used [...] determined by the Diagnostic Immunohistochemistry Laboratory of [facility] in compliance with CLIA'88 regulations. Some of these tests rely on the use of analyte specific reagents and are subject to specific labeling requirements by the FDA. All controls show appropriate reactivity. This testing was developed by the Diagnostic Immunohistochemistry Laboratory of [facility]. It has not been cleared or approved by the FDA. The FDA has determined that such clearance or approval is not necessary. 11:19 AM CDT [facility] Tissue ENTIRE STOMACH / Unknown Collection / Unknown 12/10/2024 11:00 AM CDT 12/10/2024 3:55 PM CDT Comment:Bxs of gastric ulcer s Clinton Ascencio DO PATHOLOGY/CYTOLOGY ORDE STEVIE Final Result Performing Organization Address [facility]/ZIP Co de Phone Number [facility] CLIA # [id number] [address] [place], [place] [address] * (ABNORMAL) OCCULT BLOOD GUAIAC DIAGNOSTIC (12/08/2024 11:32 AM CDT) OCCULT BLOOD, STOOL Positive( A) Negative 12/08/2024 5:38 PM CDT [facility] Stool STOOL SPECIMEN / Unknown Collection / Unknown 12/08/2024 11:32 AM CDT 12/08/2024 5:28 PM CDT Jazmin Lema MD BODY FLUIDS AND STOOLS Final Result Performing Organization Address City/[facility]/ZIP Co de Phone Number [facility] CLIA # [id number] [address] [place] [address] * (ABNORMAL) IRON, TIBC, AND PERCENT SATURATION (12/08/2024 4:23 AM CDT) Pathologist [facility] IRON 55(L) 59 - 158 ug/dL 12/09/2024 4:39 PM CDT [facility] TIBC 187(L) 250 - 450 ug/dL 12/09/2024 4:39 PM CDT [facility] IRON % SATURATION 29 15 - 60 % 12/09/2024 4:39 PM CDT [facility] Blood Venipuncture / Unknown 12/08/2024 4:23 AM CDT 12/08/2024 4:33 AM CDT Umm Dotson DO CHEMISTRY ORDERABLES Fi nal Result Performing Organization Address [facility] Co de Phone Number [facility] CLIA # [id number] [facility] [address] * (ABNORMAL) FERRITIN (12/08/2024 4:23 AM CDT) [facility] FERRITIN 917.2(H) 30.0 - 400.0 ng/mL 12/09/2024 4:38 PM CDT [facility] Blood Venipuncture / Unknown 12/08/2024 4:23 AM CDT 12/08/2024 4:33 AM CDT Umm Dotson DO CHEMISTRY ORDERABLES Fi nal Result Performing Organization Address City/[facility]/ZIP Co de Phone Number [facility] CLIA # [id number] [address] [address] * (ABNORMAL) COMPREHENSIVE METABOLIC PANEL (12/08/2024 4:23 AM CDT) Only the most recent of5 resultswithin the time period is included. Pathologist [facility] SODIUM 136 136 - 145 mmol/L 12/08/2024 5:13 AM [facility] POTASSIUM 4.3 3.5 - 5.1 mmol/L 12/08/2024 5:13 AM [facility] CHLORIDE 98 98 - 107 mmol/L 12/08/2024 5:13 AM [facility] CO2 26 22 - 29 mmol/L 12/08/2024 5:13 AM [facility] CALCIUM 8.8 8.8 - 10.2 mg/dL 12/08/2024 5:13 AM [facility] BUN 54(H) 8 - 23 mg/dL 12/08/2024 5:13 AM [facility] CREATININE 4.59(H) 0.67 - 1.17 mg/dL 12/08/2024 5:13 AM [facility] Comment:The GFR result is no t clinically significant on patients <18 or >70 years of age. GLUCOSE 153(H) 74 - 99 mg/dL 12/08/2024 5:13 AM [facility] TOTAL PROTEIN 5.4(L) 6.4 - 8.3 g/dL 12/08/2024 5:13 AM [facility] ALBUMIN 3.5 3.5 - 5.2 g/dL 12/08/2024 5:13 AM [facility] BILIRUBIN TOTAL 0.4 0.0 - 1.0 mg/dL 12/08/2024 5:13 AM [facility] ALKALINE PHOSPHATASE 85 40 - 129 U/L 12/08/2024 5:13 AM [facility] AST 28 10 - 50 U/L 12/08/2024 5:13 AM [facility] ALT 76(H) <=50 U/L 12/08/2024 5:13 AM [facility] GFR 12 mL/min/1. 73 sq meter 12/08/2024 5:13 AM [facility] Comment:eGFR calculated with 2020 CKD-EPI equation. Vegetarian diet, extremely high or low muscle mass, and may affect results. Cystatin C with Glomerular Filtration Rate is a suitable alternative for these patients. ANION GAP 12 9 - 20 mmol/L 12/08/2024 5:13 AM CDT [facility] Blood Venipuncture / Unknown 12/08/2024 4:23 AM CDT 12/08/2024 4:33 AM CDT Dustin Michel ANP CHEMISTRY ORDERABLES Final Re sult Performing Organization Address [facility] Co de Phone Number [facility] CLIA # [id number] [address] [address] [place], [place] [id number] * UNFRACTIONATED HEPARIN MONITORING (12/07/2024 6:58 AM CDT) Only the most recent of9 resultswithin the time period is included. ANTI-XA UNFRAC HEP 0.41 See Interpretation IU/mL 12/07/2024 7:19 AM CDT [facility] Blood Venipuncture / Unknown 12/07/2024 6:58 AM CDT 12/07/2024 7:02 AM CDT Narrative [facility] - 12/07/2024 7:19 AM CDT Therapeutic Range: PT/DVT Heparin Protocol 0.3 - 0.7 IU/ml Cardiac Heparin Protocol 0.3 - 0.6 IU/ml The reference range for this test is specific to the anticoagulant and is not appropriate for monitoring patients on a DOAC protocol. Jazmin Lema MD HEMATOLOGY ORDERABLES Final Result Performing Organization Address [facility] Co de Phone Number [facility] CLIA # [id number] [address] [address] [place], [place] [id number] * LACTIC ACID (12/06/2024 1:48 PM CDT) Only the most recent of3 resultswithin the time period is included. LACTIC ACID 2.0 <=2.0 mmol/L 12/06/2024 2:15 PM CDT [facility] Blood Venipuncture / Unknown 12/06/2024 1:48 PM CDT 12/06/2024 1:51 PM CDT Dustin Michel ANP CHEMISTRY ORDERABLES Final Re sult Performing Organization Address [facility] Co de Phone Number [facility] CLIA # [id number] [address] [address] * LIPASE (12/06/2024 4:51 AM CDT) Pathologist [facility] LIPASE 14 13 - 60 U/L 12/06/2024 1:17 PM CDT [facility] Blood Venipuncture / Unknown 12/06/2024 4:51 AM CDT 12/06/2024 4:59 AM CDT Dustin Michel ANP CHEMISTRY ORDERABLES Final Re sult Performing Organization Address [facility] de Phone Number [facility] CLIA # [id number] [address] [address] * XR ABDOMEN FOR FEEDING TUBE 1 [...] CULTURE No growth 12/06/2024 9:43 AM CDT [facility] Urine URINE SPECIMEN OBTAINED BY CLEAN CATCH PROCEDURE / Unknown Collection / Unknown 12/05/2024 10:28 AM CDT 12/05/2024 10:32 AM CDT Walt Aguero MD MICROBIOLOGY - GENERAL ORDERABLES Final Result Performing Organization Address [facility] Co de Phone Number [facility] CLIA # [id number] [address] [facility] [place] [address] * (ABNORMAL) BASIC METABOLIC PANEL PLUS (ADD ON CMP TO BMP) (12/05/2024 8:54 AM CDT) Pathologist [facility] TOTAL PROTEIN 6.0(L) 6.4 - 8.3 g/dL 12/05/2024 3:17 PM CDT [facility] ALBUMIN 3.8 3.5 - 5.2 g/dL 12/05/2024 3:17 PM CDT [facility] BILIRUBIN TOTAL 0.8 0.0 - 1.0 mg/dL 12/05/2024 3:17 PM CDT [facility] ALKALINE PHOSPHATASE 76 40 - 129 U/L 12/05/2024 3:17 PM CDT [facility] AST 60(H) 10 - 50 U/L 12/05/2024 3:17 PM CDT [facility] ALT 120(H) <=50 U/L 12/05/2024 3:17 PM CDT [facility] Blood Venipuncture / Unknown 12/05/2024 8:54 AM CDT 12/05/2024 9:11 AM CDT us Dustin HOPE CHEMISTRY ORDERABLES Final Re sult Performing Organization Address City/[facility]/ZIP Co de Phone Number [facility] CLIA # [id number] [address] [place] [address] * (ABNORMAL) TROPONIN (12/05/2024 8:54 AM CDT) Only the most recent of2 resultswithin the time period is included. TROPONIN T, 5TH GEN 3,843(HH) <=15 ng/L 12/05/2024 9:53 AM CDT [facility] Blood Venipuncture / Unknown 12/05/2024 8:54 AM CDT 12/05/2024 9:11 AM CDT Narrative [facility] - 12/05/2024 9:53 AM CDT Troponin elevated. us Dustin Michel ANP CHEMISTRY ORDERABLES Final Re sult [facility] CLIA # [id number] [address] [place] [address] * EKG 12-LEAD (12/05/2024 8:05 AM CDT) Only the most recent of5 resultswithin the time period is included. 12/05/2024 8:05 AM CDT Narrative INTERFACE SYSTEM - 12/05/2024 1:09 PM CDT [address] [address] Test Date: 2024-12-05 Pat Name: NISA RENAE Department: 12 Room: [address] [place] [address] Gender: Male Clinical Programmer: [email or web address] : 1945 Requested By: Order Number: [id number] Reading MD: Bianca Kelly Measurements Intervals [place] Rate: 65 P: 96 TN: 0 QRS: -76 QRSD: 200 T: 95 QT: 496 QTc: 515 Interpretive Statements Ventricular-paced rhythm Abnormal ECG Electronically Signed On 12-05-2024 13:09:51 CDT by Bianca Kelly Procedure Note Provider, Historical - 12/05/[address] [address] Test Date: 2024-12-05 Pat Name: NISA RENAE Department: 12 Room: [address] [place] [address] Gender: Male Clinical Programmer: [email or web address] : 1945 Requested By: Order Number: [id number] Reading MD: Bianca Kelly Measurements Intervals [place] Rate: 65 P: 96 TN: 0 QRS: -76 QRSD: 200 T: 95 QT: 496 QTc: 515 Interpretive Statements Ventricular-paced rhythm Abnormal ECG Electronically Signed On 12-05-2024 13:09:51 CDT by Bianca Kelly Dustin Michel ANP ECG ORDERABLES Final Result INTERFACE SYSTEM Refer to clinic/hospital department * (ABNORMAL) BASIC METABOLIC PANEL (12/05/2024 3:27 AM CDT) Only the most recent of3 resultswithin the time period is included. SODIUM 134(L) 136 - 145 mmol/L 12/05/2024 4:08 AM T [facility] POTASSIUM 5.3(H) 3.5 - 5.1 mmol/L 12/05/2024 4:08 AM T [facility] CHLORIDE 96(L) 98 - 107 mmol/L 12/05/2024 4:08 AM [facility] CO2 22 22 - 29 mmol/L 12/05/2024 4:08 AM [facility] CALCIUM 9.5 8.8 - 10.2 mg/dL 12/05/2024 4:08 AM [facility] BUN 45(H) 8 - 23 mg/dL 12/05/2024 4:08 AM T [facility] CREATININE 3.93(H) 0.67 - 1.17 mg/dL 12/05/2024 4:08 AM T [facility] Comment:The GFR result is no t clinically significant on patients <18 or >70 years of age. GLUCOSE 291(H) 74 - 99 mg/dL 12/05/2024 4:08 AM [facility] GFR 15 mL/min/1. 73 sq meter 12/05/2024 4:08 AM [facility] Comment:eGFR calculated with 2020 CKD-EPI equation. Vegetarian diet, extremely high or low muscle mass, and may affect results. Cystatin C with Glomerular Filtration Rate is a suitable alternative for these patients. ANION GAP 16 9 - 20 mmol/L 12/05/2024 4:08 AM CDT [facility] Blood Venipuncture / Unknown 12/05/2024 3:27 AM CDT 12/05/2024 3:33 AM CDT us Tigist RUSSELL CHEMISTRY ORDERABLES Final Resu lt [facility] [id number] [address] [place] [address] * (ABNORMAL) CBC WITHOUT DIFFERENTIAL (12/04/2024 9:11 PM CDT) WBC 22.6(H) 4.8 - 10.8 K/uL 12/04/2024 9:18 PM CDT [facility] RBC 3.39(L) 4.60 - 6.20 M/uL 12/04/2024 9:18 PM CDT [facility] HEMOGLOBIN 10.6(L) 14.0 - 18.0 g/dL 12/04/2024 9:18 PM T [facility] HEMATOCRIT 34.3(L) 41.0 - 53.0 % 12/04/2024 9:18 PM CDT [facility] MCV 101.2 84.0 - 103.0 fL 12/04/2024 9:18 PM CDT [facility] MCH 31.3 27.0 - 34.0 pg 12/04/2024 9:18 PM CDT [facility] MCHC 30.9 30.0 - 35.0 g/dL 12/04/2024 9:18 PM CDT [facility] PLATELETS 97(L) 140 - 440 K/uL 12/04/2024 9:18 PM T [facility] MPV 10.5 8.9 - 12.8 fL 12/04/2024 9:18 PM CDT [facility] RDW 18.4(H) 11.0 - 14.5 % 12/04/2024 9:18 PM CDT [facility] RDW-STDEV 69.1(H) 37.0 - 54.0 fL 12/04/2024 9:18 PM CDT [facility] Blood Venipuncture / Unknown 12/04/2024 9:11 PM CDT 12/04/2024 9:15 PM CDT us Tigist RUSSELL HEMATOLOGY ORDERABLES Final Res ult [facility] CLIA # [id number] [facility] [address] * ECHOCARDIOGRAM W/ CONTRAST AGENT (12/04/2024 10:45 AM CDT) EJECTION FRACTION 26 INTERFACE SYSTEM 12/04/2024 8:57 AM CDT Narrative INTERFACE SYSTEM - 12/04/2024 11:13 AM CDT [facility] Cardiovascular Services Echocardiography Laboratory [address] [place] [address] Transthoracic Echocardiography Patient: Nisa Renae Study ID: ECHO COMPLETE - Gender: M : 1945 Age: 79 Room: [facility] Study Date: 12/04/2024 Pt Status: Inpatient Study Time: 08:57:28 AM CSN #: [id number] Ordering:Tigist Dodson Press Loader: Gagandeep Nava [facility] Indications and History: Hypotension or Hemodynamic [...] (H) scot values outside specified reference range. [facility] Echo Labs are accredited with the [facility] Accreditation Commission - Echocardiography. Prepared and Electronically Authenticated Conrado Shearer Confirmed 12/04/2024 11:13 Procedure Note Conrado Shearer MD - 12/04/2024 [facility] Cardiovascular Services Echocardiography Laboratory [address] [place] [address] Transthoracic Echocardiography Patient: Nisa Renae Study ID: ECHO COMPLETE- Gender: Manuelito : 1945 Age: 79 Room: [facility] Study Date: 12/04/2024 Pt Status: Inpatient Study Time: 08:57:28 AM CSN #: [id number] Ordering:Tigist Dodson Press Loader: Gagandeep Nava [facility] Indications and History: Hypotension or Hemodynamic [...] (H) scot values outside specified reference range. [facility] Echo Labs are accredited with the[employer]ocietal Accreditation Commission - Echocardiography. Prepared and Electronically Authenticated Conrado Shearer Confirmed 12/04/2024 11:13 us Tigist RUSSELL US ORDERABLES Final Result INTERFACE SYSTEM Refer to clinic/hospital department * MRSA PCR RAPID SCREEN (12/04/2024 8:29 AM CDT) MRSA PCR RESULT MRSA not detected MRSA not detected 12/04/2024 10:09 AM CDT [facility] Surveillance ANTERIOR NARES SWAB / Unknown Collection / Unknown 12/04/2024 8:29 AM CDT 12/04/2024 8:43 AM CDT Narrative [facility] - 12/04/2024 10:09 AM CDT This assay is used to detect Methicillin-Resistant S. aureus (MRSA) colonization of the nares. PLEASE NOTE: This test has not been approved to monitor effectiveness of MRSA decolonization. Residual DNA may temporarily be present after successful decolonization. This test was performed using an FDA approved screening methodology. us Tigist RUSSELL MICROBIOLOGY - GENERAL ORDERABL ES Final Result [facility] CLIA # [id number] [address] [address] [place] [address] * (ABNORMAL) URINALYSIS WITH REFLEX MICROSCOPIC (12/04/2024 8:28 AM CDT) COLOR UA Yellow Pale to Dark Yellow 12/04/2024 8:52 AM [facility] CLARITY UA Cloudy(A) Clear 12/04/2024 8:52 AM [facility] SPECIFIC GRAVITY UA 1.039(H) 1.003 - 1.035 12/04/2024 8:52 AM [facility] PH UA 6.0 5.0 - 8.0 12/04/2024 8:52 AM [facility] LEUKOCYTE ESTERASE UA 3+(A) Negative 12/04/2024 8:52 AM [facility] NITRITE UA Negative Negative 12/04/2024 8:52 AM T [facility] PROTEIN UA 3+(A) Negative 12/04/2024 8:52 AM T [facility] GLUCOSE UA 1+(A) Negative 12/04/2024 8:52 AM T [facility] KETONES UA 1+(A) Negative 12/04/2024 8:52 AM [facility] UROBILINOGEN UA <2.0 <2.0 mg/dL 8:52 AM CDT [facility] BILIRUBIN UA Negative Negative 12/04/2024 8:52 AM CDT [facility] BLOOD UA 3+(A) Negative 12/04/2024 8:52 AM CDT [facility] WBC UA >100(A) 0 - 2 /hpf 12/04/2024 8:52 AM CDT [facility] RBC UA 51-100(A) 0 - 2 /hpf 12/04/2024 8:52 AM CDT [facility] BACTERIA UA 2+(A) Negative /hpf 12/04/2024 8:52 AM CDT [facility] EPITHELIAL CELLS, URINE 0-5 0 - 5 /hpf 12/04/2024 8:52 AM CDT [facility] Urine URINE SPECIMEN OBTAINED BY CLEAN CATCH PROCEDURE / Unknown Collection / Unknown 12/04/2024 8:28 AM CDT 12/04/2024 8:44 AM CDT us Tigist RUSSELL URINE ORDERABLES Final Result [facility] CLIA # [id number] [address] [place] [address] * (ABNORMAL) TROPONIN 6 HR, 5TH GEN (12/04/2024 7:50 AM CDT) TROPONIN T, 6 HR 5TH GEN 3,956(HH) <=15 ng/L 12/04/2024 9:04 AM CDT [facility] DELTA 6HR TROPONIN T % -10 See Interp. % 12/04/2024 9:04 AM CDT [facility] Blood Venipuncture / Unknown 12/04/2024 7:50 AM CDT 12/04/2024 8:23 AM CDT Narrative [facility] - 12/04/2024 9:04 AM CDT Troponin elevated. Delta not changing. Tigist RUSSELL CHEMISTRY ORDERABLES Final Resu lt Performing Organization Address [facility] Co de Phone Number [facility] Pertino [facility] CLIA # [id number] [address] [address] * BLOOD CULTURE (12/04/2024 7:50 AM CDT) Only the most recent of2 resultswithin the time period is included. Pathologist [facility] BLOOD CULTURE No growth 12/09/2024 9:31 AM CDT [facility] Blood (Peripheral) Venipuncture / Unknown 12/04/2024 7:50 AM CDT 12/04/2024 8:20 AM CDT Tigist RUSSELL MICROBIOLOGY - GENERAL ORDERABL ES Final Result Performing Organization Address [facility] Co de Phone Number [facility] Pertino [facility] CLIA # [id number] [address] [address] * (ABNORMAL) TROPONIN 2 HR, 5TH GEN (12/04/2024 3:33 AM CDT) Pathologist [facility] TROPONIN T, 2 HR 5TH GEN 4,870(HH) <=15 ng/L 12/04/2024 4:55 AM CDT [facility] Pertino [facility] DELTA 2HR TROPONIN T % 10 See Interp. % 12/04/2024 4:55 AM CDT [facility] Blood Venipuncture / Unknown 12/04/2024 3:33 AM CDT 12/04/2024 3:37 AM CDT Narrative [facility] Pert[facility] - 12/04/2024 4:55 AM CDT Troponin elevated. Delta not changing. Tigist RUSSELL CHEMISTRY ORDERABLES Final Resu lt Performing Organization Address [facility] de Phone Number [facility] CLIA # [id number] [address] [address] * (ABNORMAL) TROPONIN BASELINE, 5TH GEN (12/04/2024 1:57 AM CDT) TROPONIN T, BASELINE 5TH GEN 4,417(HH) <=15 ng/L 12/04/2024 3:01 AM CDT [facility] Blood Venipuncture / Unknown 12/04/2024 1:57 AM CDT 12/04/2024 2:00 AM CDT [facility] Pertino [facility] - 12/04/2024 3:01 AM CDT Troponin elevated. Tigist RUSSELL CHEMISTRY ORDERABLES Final Resu lt Performing Organization Address [facility] de Phone Number [facility] Pertino [facility] CLIA # [id number] [address] [place] [address] * (ABNORMAL) PROCALCITONIN (12/04/2024 1:57 AM CDT) PROCALCITONIN 55.40(H) <=0.08 ng/mL 12/04/2024 2:53 AM CDT [facility] Blood Venipuncture / Unknown 12/04/2024 1:57 AM CDT 12/04/2024 2:00 AM CDT [facility] Pertino [facility] - 12/04/2024 2:53 AM CDT The utility [...] Resu lt Performing Organization Address [facility] Co de Phone Number [facility] CLIA # [id number] [address] [place] [address] * VANCOMYCIN LEVEL RANDOM (12/04/2024 1:57 AM CDT) [facility] Signature VANCOMYCIN, RANDOM 19.7 5.0 - 50.0 ug/mL 12/04/2024 6:19 AM CDT [facility] Blood Venipuncture / Unknown 12/04/2024 1:57 AM CDT 12/04/2024 2:00 AM CDT Narrative [facility] - 12/04/2024 6:19 AM CDT Vancomycin Therapeutic Ranges: Vancomycin Trough: 10 - 20 mcg/mL Vancomycin Peak: 25 - 50 mcg/mL us Jim Asif MD CHEMISTRY ORDERABL ES Final Result Performing Organization Address [facility] Co de Phone Number [facility] CLIA # [id number] [address] [place] [address] * PROCEDURE PHOTOGRAPHS (12/01/2024 10:48 AM CDT) [...] Type: Interscalene Laterality: Left Injection technique: Single-shot [place] Identification: ultrasound guided Local injected: Lidocaine 2% [...] ABO GROUP O 11/29/2024 7:18 AM CDT [facility] [place] RH (D) TYPE Positive 11/29/2024 7:18 AM T [facility] [place] Blood Venipuncture / Unknown 11/29/2024 6:48 AM CDT 11/29/2024 6:54 AM CDT Klarissa Flowers MD BLOOD BANK ORDERABLES Final Re sult Performing Organization Address [facility] Co de Phone Number [facility] CLIA#[id number] [address] [place] [address], * (ABNORMAL) PROTIME-INR (11/29/2024 6:47 AM CDT) PROTIME 15.9(H) 12.7 - 14.9 Seconds 11/29/2024 7:02 AM CDT [facility] INR 1.2 0.8 - 1.2 11/29/2024 7:02 AM CDT [facility] Blood Venipuncture / Unknown 11/29/2024 6:47 AM CDT 11/29/2024 6:50 AM CDT Narrative [facility] - 11/29/2024 7:02 AM CDT Expected Values [...] ORDERABLES Final Re sult Performing Organization Address City/[facility]/ZIP Co de Phone Number [facility] CLIA # [id number] [address] [place] [address] * TYPE AND SCREEN (11/29/2024 6:47 AM CDT) ABO GROUP O 11/29/2024 7:48 AM CDT [facility] [place] RH (D) TYPE Positive 11/29/2024 7:48 AM CDT [facility] [place] ANTIBODY SCREEN Negative 11/29/2024 7:48 AM CDT [facility] [place] Blood Venipuncture / Unknown 11/29/2024 6:47 AM CDT 11/29/2024 6:50 AM CDT us Klarissa Flowers MD BLOOD BANK ORDERABLES Edited R esult - Final [facility] [place] CLIA#[id number] [address] [place] [address], * US DUPLEX PREOP VESS ASSESS LT (11/12/2024 11:13 AM CDT) Anatomical Region Laterality Modality Lower Extremity, Upper Extremity Ultrasound 11/12/2024 10:2 4 AM CDT Narrative 11/15/2024 11:17 AM CDT [facility] [address] [place] [address] Noninvasive Vascular Lab Upper Extremity Evaluation for Hemodialysis Access Patient: Nisa Renae Study ID: US DUPLEX PREOP Gender: M : 1945 Age: 79 Room: Height: 180cm Weight: 104.3kg BSA: 2.31m^2 Pt status: Outpatient Study Date: 11/12/2024 Study Time: 10:24:48 AM BSA: 2.31m^2 Ordering: Klarissa Flowers MD Interpreting:Janell Melgar Press Loader: Melissa Nava RVT Indications: Dx: 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 [...] evaluation was performed. Image quality was good. [facility] is accredited with the Intersocietal Commission for the Accreditation of Vascular Laboratories (ICAVL) Prepared and Electronically Authenticated Janell Melgar Confirmed 11/15/2024 11:17 Procedure Note Janell Melgar DO - 11/15/2024 [facility] [address] [place] [address] Noninvasive Vascular Lab Upper Extremity Evaluation for Hemodialysis Access Patient: Nisa Renae Study ID: US DUPLEX PREOP Gender: M : 1945 Age: 79 Room: Height: 180cm Weight: 104.3kg BSA: 2.31m^2 Pt status: Outpatient Study Date: 11/12/2024 Study Time: 10:24:48 AM BSA: 2.31m^2 Ordering: Klarissa Flowers MD Interpreting:Janell Melgar Press Loader: Melissa Nava RVT Indications: Dx: Benign hypertension with ESRD (end-stage renaldisease) ([facility]) [I12.0, N18.6 (ICD-10-CM)] Summary Impression: 1. [...] evaluation was performed. Image quality was good. [facility] is accredited withthe [facility] Commission for the Accreditation of Vascular Laboratories (ICAVL) Prepared and Electronically Authenticated Janell Melgar Confirmed 11/15/2024 11:17 us Klarissa Flowers MD US ORDERABLES Final Result * [place] PROGRAM EVAL IMPLANTABLE IN PERSN DUAL LD PACER (10/26/2024 11:10 AM CDT) Narrative [facility] - 10/26/2024 11:10 AM CDT Kelly Han 10/26/2024 11:10 AM Office Device Check By Vendor Auto Mechanics Teacher Date of Procedure: October 25, 2024 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 Interrogation reviewed by provider. Please see scan for details. Procedure Note Kelly Han - 10/26/2024 11:10 AM CDT Office Device Check By Vendor Auto Mechanics Teacher Date of Procedure: October 25, 2024 Colloid Mill Operator: [employer] Comments: Office check by [employer] branch customer service representative in conjunction w/ EPoffice visit. Interrogation reviewed by provider. Please see scan for details. us Sotero Alejandro MD CARDIAC SERVICES ORDERABLES Final Result [facility] [address] [facility] [place] [address] * (ABNORMAL) MICROALBUMIN/CREATININE RATIO, RANDOM UR (03/29/2024 [...] PM CDT Performing Organization Information: Site ID: CO Name: [employer] Address: [address] [address] Director: Tawanda Roca MD Jillian Monge MD URINE ORDERABLES Final Result [facility] * LIPID RFLX (03/29/2024 1:24 AM CDT) CHOLESTEROL 134 <200 mg/dL 03/29/2024 3:43 AM CDT [facility] TRIGLYCERIDE 70 <150 mg/dL 03/29/2024 3:43 AM CDT [facility] HDL 51 40 - 59 mg/dL 03/29/2024 3:43 AM CDT [facility] LDL CALCULATED 69 <100 mg/dL 03/29/2024 3:43 AM CDT [facility] NON-HDL CHOLESTEROL 83 <130 mg/dL 03/29/2024 3:43 AM CDT [facility] Blood Venipuncture / Unknown 03/29/2024 1:24 AM CDT 03/29/2024 1:52 AM CDT Narrative [facility] - 03/29/2024 3:43 AM CDT TOTAL CHOLESTEROL [...] ORDERABLES Final R esult Performing Organization Address City/[facility] Co de Phone Number [facility] CLIA # [id number] [address] [address] * (ABNORMAL) HEMOGLOBIN A1C (03/29/2024 1:24 AM CDT) HEMOGLOBIN A1C 7.1(H) <=5.6 % 03/29/2024 12:00 PM CDT [facility] EST. AVG GLUCOSE, A1C 157 mg/dL 03/29/2024 12:00 PM CDT [facility] Blood Venipuncture / Unknown 03/29/2024 1:24 AM CDT 03/29/2024 1:51 AM CDT Narrative [facility] - 03/29/2024 12:00 PM CDT HGB A1C INTERPRETATION NORMAL: <5.7% PRE-DIABETES: 5.7 - 6.4% DIABETES: 6.5% OR GREATER Jaciel Yuan MD CHEMISTRY ORDERABLES Final R esult Performing Organization Address [facility] Co de Phone Number [facility] CLIA # [id number] [address] [address] from Last 3 Months or Most Recently Relevant to Health Maintenance Insurance MEDICARE PART A AND B [facility] RX GAN PLANS (INTERNAL) [facility] RX [facility] [employer] RX GENERIC COMMERCIAL Commercial [place] [employer] Advance Directives For more information, please contact: [phone] * NO CPR (In Event of Cardiopulmonary [...] Non-Invasive (i.e. BiPAP, CPAP): Yes Care Teams Bowling Ball Mold Assembler Relationship Specialty Start Date End Date Paula Sandoval MD [address] [place] [address] PCP - General Family Practice 10/18/24
--- OUTSIDE RECORDS SUMMARY | 2025-01-10 11:42 | XMS_ITS | Encounter Summary ---
Author Organization [employer], [facility] Address [address] [facility] [address] [place] [address] Phone Care Team Providers Care Rack Maker Name Role Phone Alejandro Macias MD Primary Care Provider [phone] Encounter Details Date Type Department Care Team (Late st Contact Info) Description 01/04/2025 Documentation Only [facility] [address] [place] [address] Elenita Zeng [address] [facility] [address] [place] [address] Social History Tobacco Use Types [...] on filedocumented in this encounter Care Teams Rack Maker Relationship Specialty Start Date End Date Alejandro Macias MD [address] [place] [address] PCP - General Family Medicine 12/15/18 documented as of this encounter
--- OUTSIDE RECORDS SUMMARY | 2025-01-10 11:43 | XMS_ITS | Encounter Summary ---
Author Organization [facility] Address [address] [place] [address] Care Team Providers Care Township Clerk Name Role Phone Paula Sandoval MD Primary Care Provider + [phone] Reason for Visit * Reason Onset Date Comments Question 01/06/2025 Encounter Details Date Type Department Care Team (Late st Contact Info) Description 01/06/2025 Telephone [facility] [address] [facility] [address] [place] [address] Sotero Alejandro MD [address] [facility] [address] [place] [phone] Question Social History Tobacco Use Types Packs/Day [...] Telephone Encounter - Cody Baltazar - 01/06/2025 1:28 PM CDT Spoke with patient's spouse and [facility], (we called earlier and left VM to please call us to complete the carelink transfer) to expedite carelink transfer, and they can send a manual transmission tomorrow. We did make a tentative appt for 01-10-2025 @ 3:00pm. Noted that, should we receive the transmission, we can contact patient and cancel this in clinic check. Advised patient and spouse to maintain this appt until we are sure the transmission has been successful, with noted battery life documented and they agree with this plan. documented in this encounter Plan of Treatment Upcoming Encounters Date Type Department Care Team (Latest Contact Info) Description 01/17/2025 11:45 AM CDT Appointment [facility] Laboratory Services [address] [phone] 01/19/2025 3:00 PM CDT Office Visit [facility] H[facility] [place] [address] [facility] [address] [place] [phone] Iqra Brito NP [address] [address] 01/21/2025 11:00 AM CDT Office Visit [facility] [address] [place] [phone] Lyndsey Dorsey, MARCELLO [address] [facility] [address] [place] [phone] 02/07/2025 2:00 PM CDT Hospital Encounter [facility] [address] [place] [phone] Clinton Ascencio, DO [address] [facility] [address] [place] [phone] 02/07/2025 2:00 PM CDT - 02/07/2025 2:20 PM CDT Surgery [facility] [address] [place] [phone] Clinton Ascencio, DO [address] [place] [phone] ESOPHAGOGASTRODUODENOSCOPY 03/18/2025 11:30 AM CDT Office Visit [facility] Vascular Surgery [place] [address] [place] [address] Klarissa Flowers MD [address] [place] [address] Scheduled Procedures Name Priority Associated Diagnoses Date/Ti me ESOPHAGOGASTRODUODENOSCOPY gastric ulcer 02/07/2025 2:00 PM CDT documented as of this encounter Visit Diagnoses Not on filedocumented in this encounter Care Teams Township Clerk Relationship Specialty Start Date End Date Paula Sandoval MD [address] [place] [phone] PCP - General Family Practice 10/18/24 documented as of this encounter
--- OUTSIDE RECORDS SUMMARY | 2025-01-10 11:43 | XMS_ITS | Data Portability ---
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 Procedures None recorded. Surgeries None recorded. Imaging None recorded. Medication Orders doxycycline hyclate 100 mg capsule 2024 025 [facility], [address], [place], [address], 5 13:29:23 montelukast 10 mg tablet 2023 024 [facility], [address], [place], [address], 4 13:02:33 ondansetron HCl 4 mg tablet [address] [facility], [address], [place], [address], 4 12:17:46 Paxlovid 300 mg (150 mg x 2)-100 mg tablets in a dose pack [address] [facility] 15, [address], [place], [address], 12:17:59 Patient TargetsNo targets recorded. Patient Instructions Encounter Date Encounter Id Patient Instructions Last Modified By Organization Details Last Modified Time 03/26/2024 [id number] Call or return for questions or concerns. Not available 03/26/2024 13:02:26 07/03/2024 [id number] Call or return for questions or concerns. [...] the [facility] s websi te: www.[employer] uestD iagno stics .com/ Covid 19. For [...] on COVID -19 vacci elly. Not Available [facility] [address], [place], [address], 03/19/2023 08:30:00 03/17/20 23 03/17/2023 SARS CoV 2 RNA, QL, nasop haryn x COVID negati ve Not Available [facility] ([facility]) [address] [place], [address], 03/17/2023 12:49:58 Result Notes None recorded. 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 Mann; 05/10/2021 2:25PM by Bernadette Bonilla, RN, Office Visit; Promoted; acuity set as *; Not Available [facility] 3 03:16:30 Benign essential hypertens ion 6633513 Active 2020 Hypertensi on; 05/10/2021 2:25PM by Bernadette Bonilla RN, Office Visit; Promoted; acuity set as *; Not Available [facility] 3 03:16:35 Type 2 diabetes mellitus without complicat ion 076923502 Active 2020 Non-Insuli n Dependent Diabetes Mellitus; pt test QID; 05/10/2021 2:25PM by Bernadette Bonilla RN, Office Visit; Promoted; acuity set as *; Not Available [facility] 3 03:16:37 Problem Notes None recorded. Medical Equipment None Reported. Allergies Allergen ID Allergen Name Allergen Category Reaction Reaction Severity Criticality Documentation Date Start Date Code Code System Note Provider Name and Address Organization Details Recorded Time 43613 iodine medicatio n Not available Not available Not available 01/18/2023 5933 RxNorm Comme nt: Recor ded 05/10 2:25P M by Ryan Bonilla RN, Offic e Visit ; Promo emmanuel; Signi kalin ce: *; Reaso n: Drug aller gy; ; Not Available [facility] 3 02:24:23 70623 Uloric medicatio n hives Not available Not available 01/18/2023 07931 6 RxNorm React ion: Hives ; Comme nt: Recor ded 05/10 2:25P M by Ryan Bonilla RN, Offic e Visit ; Promo emmanuel; Signi ficloren ce: *; Reaso n: Drug aller gy; ; Not Available [facility] 3 02:24:23 85965 allopurin ol medicatio n abdominal pain Not available Not available 01/18/2023 519 RxNorm React ion: Abdom inal pain, Hives ; Comme nt: Recor ded 05/10 2:25P M by Ryan Bonilla RN, Offic e Visit ; Promo emmanuel; Signi kalin ce: *; Reaso n: Drug aller gy; ; Not Available [facility] 3 02:24:23 33842 Flomax medicatio n other Not available Not available 01/18/2023 44789 3 RxNorm React ion: Blood disor luz marina; Comme nt: Recor ded 05/10 2:25P M by Ryan Bonilla RN, Offic e Visit ; Promo emmanuel; Signi ficloren ce: *; Reaso n: Drug aller gy; ; Not Available [facility] 3 02:24:23 54247 Levaquin medicatio n hallucina tions Not available Not available 01/18/2023 92535 2 RxNorm React ion: demen tia, confu garfield, hallu cinat ions, agita tion; Comme nt: Recor ded 05/10 2:25P M by Ryan Bonilla RN, Offic e Visit ; Promo emmanuel; Signi fican ce: *; Reaso n: Drug aller gy; ; Not Available [facility] 3 02:24:23 08359 Seroquel medicatio n hallucina tions Not available Not available 01/18/2023 11031 RxNorm React ion: hallu cinat ions; Comme nt: Recor ded 05/10 2:25P M by Ryan Bonilla RN, Offic e Visit ; Promo emmanuel; Signsusan gagnon ce: *; Reaso n: Drug aller gy; ; Not Available [facility] 3 02:24:23 Medications Name Sig Start Date [...] minutes x 3 prn 2019 active VO JR/[facility] pharmacy ; Recorded 01/20/20 21 8:38AM [...] Updated DateTime 5 180.34 cm 32.1 kg/m2 207338. 05 g 98.4 [degF] 77 /min 93 % 93 % 140/62 mm[Hg] Sherin Jama [facility] 5 12:50:20 Date Recorded Body height Body mass index (BMI) Body weight Oxygen saturation Oxygen saturation in Arterial blood by Pulse oximetry Heart rate Respiratory rate Body temperature Provider Name and Address Organization Details Last Updated DateTime 3 177.8 cm 35.7 kg/m2 551711. 5 g 98 % 98 % 94 /min 20 /min 98.2 [degF] SAILAJA ROSALES [facility] [address] [place], [address], [facility] 3 12:51:23 Date Recorded Body weight Body mass index (BMI) Body height Body temperature Oxygen saturation Oxygen saturation in Arterial blood by Pulse oximetry Heart rate Systolic And Diastolic Provider Name and Address Organization Details Last Updated DateTime 4 160617. 13 g 34.2 kg/m2 180.34 cm 98 [degF] 95 % 95 % 81 /min 132/58 mm[Hg] Sherin Jama [facility] 4 12:22:13 Social History None recorded. Functional Status None recorded. Mental Status None recorded. Family History Nothing Reported. Medical History No medical history recorded. Immunizations Vaccine Type Date Status Note Provider Nam e and Address Organization Details Recorded Time Td (adult), 2 Lf tetanus toxoid, preservative free, adsorbed 7 completed Not Available [facility] 01/18/2023 02:50:56 Influenza, split virus, trivalent, preservative 1 completed Not Available [facility] 01/18/2023 02:50:56 pneumococcal, unspecified formulation 1 completed Not Available [facility] 01/18/2023 02:50:56 zoster, unspecified formulation 1 completed Not Available [facility] 01/18/2023 02:50:56 Influenza, split virus, trivalent, preservative 1 completed Not Available [facility] 01/18/2023 02:50:56 pneumococcal polysaccharide PPV23 1 completed Not Available [facility] 01/18/2023 02:50:56 COVID-19, mRNA, LNP-S, PF, 30 mcg/0.3 mL dose 1 completed Not Available [facility] 01/18/2023 02:50:57 COVID-19, mRNA, LNP-S, PF, 30 mcg/0.3 mL dose 1 completed Not Available [facility] 01/18/2023 02:50:57 Past Encounters Encounter ID Performer Location Encounter Start Date Encounter Closed Date Diagnosis/Indication Diagnosis SNOMED-CT Code Diagnosis ICD10 Code Diagnosis Note [id number] [facility] [address] [place] [address] 03/17/2023 12:05:05 03/18/2023 14:42:14 Cough 66162584 R05.9 COVID-19 016097055 U07.1 Nausea 419135893 R11.0 [id number] ALL NAVA [facility] ([facility]) [address] [place] [address] 03/26/2024 11:40:55 03/26/2024 13:06:31 Seasonal allergic rhinitis 938752331 J30.2 [id number] [facility] ([facility]) [address] [place] [address] 07/03/2024 12:08:59 07/03/2024 13:37:45 Acute bacterial bronchitis 452412981 J20.9 End stage renal failure on dialysis 473908847 N18.[address] [place] out of [place] [...] [employer] (MEDICARE SUPPLEMENT) Valente Renae [id number] Valente Renae 07/03/2024 1 [place]: [place] Valente Renae [id number] Valente Renae 07/03/2024 [place] - [place] - [facility] (MEDICARE) Valente Renae [id number] Valente Renae Notes Date Note Type Note [...] (positive at home)Notes:Afebrile. No nausea. ALL SHOEMAKER [address] [place] [address], [address], [facility] 03/17/2023 13:27:21 03/26/2024 text/html CoughReported bypatient.Quality:pr oductive Severity:moderate Duration:constant Onset/Timing:sudden Context:non-smoker Associated Symptoms:no fever; no chills; no throat clearing walk in ptPt has had a terrible cough for a week and a half. TONY CAMPOS [address], [address], [facility] 03/26/2024 13:04:04 07/03/2024 text/html [facility] a [facility] and weakness for a week and has 2 dialysis visits. TONY CAMPOS [facility] [address] [place], [address], [facility], [facility] 07/03/2024 13:30:07
--- OUTSIDE RECORDS SUMMARY | 2025-01-10 11:43 | XMS_ITS ---
Author Name [facility] Address [address] [place] [address] Phone [phone] Organization [facility] e, NA DOCUMENT DISCLAIMER Multiple document versions may exist, please be sure you review the latest version. The information in the [facility] Continuity of Care Document represents a summary [...] of COVID-19 Z86.16 Active April 06, 2024 long term care pharmacist (current) use of insulin Z79.4 April 06, 2024 Benign prostatic hyperplasia without lower urinary tract symptoms N40.0 April 06, 2024 Other specified disorders of kidney and ureter N28.89 April 06, 2024 Chronic kidney disease, stage 4 (severe) N18.4 April 06, 2024 Heart failure, unspecified I50.9 Active O ctober 2023 Atherosclerotic heart diseas e of [place] coronary artery without angina pectoris I25.10 Active [...] Route Start Date End Date Stat us Diphenhydramine PRN Allergic Reaction 50 mg Intravenous - push April 10, 2024 April 07, 2025 Active Heparin Sodium (Porcine) 1,000 Units/mL Systemic Bolus, Every Treatment, Total treatment minutes 240 5000 units Intravenous - push May 22, 2024 May 21, 2025 Active Iron Sucrose (Venofer) During Dialysis, 3X Week 100 mg Intravenous - push January 04, 2025 January 25, 2025 Active Vitamin D (Calcitriol) Oral Every Treatment 0.25 mcg Oral December 02, 2024 November 29, 2025 Active Epoetin Sarath (Epogen) During Dialysis, 3X Week 5800 units Intravenous - push December 07, 2024 December 06, 2025 Discontinued Heparin Sodium (Porcine) 1,000 Units/mL Catheter Lock Arterial Every Treatment 2000 units Arterial [place] April 10, 2024 April 07, 2025 Discontinued Heparin Sodium (Porcine) 1,000 Units/mL Catheter Lock Venous Every Treatment 2000 units Venous [place] April 10, 2024 April 07, 2025 Discontinued Iron Sucrose (Venofer) During Dialysis, 1X Week 50 mg Intravenous - push November 30, 2024 November 29, 2025 Discontinued Home Medications Medication Instructions Dosage Route Start Date End Date Status atorvastatin 80 mg Take by mouth once a day 1 tablet ORAL December 17, 2024 Active carvedilol 3.125 mg Take by mouth once a day as directed 1 tablet ORAL January 07, 2025 Active cholecalciferol (vitamin D3) 50 mcg (2,000 unit) Take by mouth once a day 1 tablet ORAL May 25, 2024 Active diclofenac sodium 1% Apply to affected area four times a day as needed for pain 4 gram TOPICAL April 13, 2024 Active finasteride 5 mg Take by mouth once a day 1 tablet ORAL April 13, 2024 Active fluticasone propionate 50 mcg/actuation [place] into both nostrils twice a day 1 spray NASAL April 13, 2024 Active folic acid 1 mg Take by mouth once a day as directed 1 tablet ORAL January 05, 2025 Active furosemide 80 mg Take by mouth twice a day 1 tablet ORAL January 04, 2025 Active glucosamine-chond roitin 500-400 mg Take by mouth once a day 1/2 capsule ORAL April 13, 2024 Active insulin glargine 100 unit/mL (3 mL) Inject subcutaneously SUBCUTANEOUS October 26, 2024 Active isosorbide mononitrate 30 mg Take by mouth once a day 1 tablet ORAL January 07, 2025 Active Lantus U-100 Insulin 100 unit/mL Inject [...] 2 capsule ORAL August 21, 2024 Active docusate sodium 100 mg Take by mouth twice a day as needed 1 capsule ORAL January 07, 2025 Discontinued torsemide 100 mg Take by mouth once a day as directed 1 tablet ORAL August 12, 2024 January 04, 2025 Discontinued VITAL SIGNS Post-Treatment Vital Signs Vital Sign Value Date / Time Blood Pressure-sitting 120/50 mmHg January 06, 2025 11:56 AM Blood Pressure-standing 137/65 mmHg January 06, 2025 11:56 AM Heart Rate 100 beats per minute January 06 11:56 AM Respiratory Rate 16 breaths per minute January 06, 2025 11:56 AM Temperature 98.0 deg. F January 06, 2025 11 :56 AM Weight Vital Sign Value Date / Time Estimated Dry Weight 103.5 kg January 01 11:59 PM Pre-Dialysis 106.20 kg January 06, 2025 11 :56 AM Post-Dialysis 105.00 kg January 06, 2025 11 :56 AM Other Other Value Date / Time [...] 1000/mcL 130 - 400 1000/mcL Low [email or web address] Neutrophils 4.8 % 40.0 - 75.0 [...] mcg/dL 155 - 355 mcg/dL - August Atypical Lymphs 7 % 0 - 4 [...] 62 mcg/dL 45 - 160 mcg/dL - May 08, 2 025 Transferrin Sat. (Calc) 24 % 20 - [...] - 54.0 % Low November 18, 2024 Iron 109 mcg/dL [...] 40.0 - 75.0 % Low November 25 Ferritin 516 ng/mL 22 - 322 ng/mL High Martina 12, 2 025 Hemoglobin x 3 28.2 % 42.0 - [...] pg 27.0 - 31.0 pg High December 28 HCT 30.4 % 42.0 - 52.0 % Low December 28 25 Eosinophil 3 % 0 - 7 % - December 28, 2024 Atypical Lymphs 4 % 0 - 4 % - December 28, 2024 Iron 60 mcg/dL 45 - 160 mcg/dL - December 28, 2024 TIBC (Calc) 205 mcg/dL 185 - 515 mcg/dL - December UIBC/TIBC 145 mcg/dL 155 - 355 mcg/dL Low December 28, 2024 Transferrin Sat. (Calc) 29 % 20 - 55 % - December 28, 2024 Hemoglobin x 3 27.9 % 42.0 - 54.0 % Low December HGB 9.3 g/dL 14.0 - 18.0 g/dL Low December 30, 2024 HGB 9.4 g/dL 14.0 - 18.0 g/dL Low January 06, 2025 Hemoglobin x 3 28.2 % 42.0 - 54.0 % Low December [...] 136 - 145 mEq/L - October 28 025 BUN 50 mg/dL 6 - 19 [...] 96 - 108 mEq/L - November 25, 025 Bicarbonate 25 mEq/L 22 - 29 [...] mEq/L 96 - 108 mEq/L - December 28 Bicarbonate 25 mEq/L 22 - 29 mEq/L - December 28 BUN 36 mg/dL 6 - 19 mg/dL High December 30 BUN, Post 10 mg/dL 6 - 19 mg/dL - December 30 URR, Calc 72 % 65 - 80 % - December 30, 2024 HD Adequacy Result Type Result Value Relevant Referen ce Range Interpretation Date Krt/V 0.49 No Reference Ran ge Provided - July 29, 2024 Krt/V 0.51 No Reference Ran ge Provided - August 26, 2024 Krt/V 0.00 No Reference Ran ge Provided - September 23, 2024 Krt/V 0.00 [...] residual 0.0 No Reference Range Provided - December 30, 2024 spKt/V Gotch 1.42 No Reference Ran ge Provided - December 30, 2024 wstdKt/V 2.4 No Reference Ran ge Provided - December 30, 2024 Krt/V 0.00 No Reference Ran ge Provided - December 30, 2024 eKt/V ([place]) 1.24 No Reference Range Provided - December 30, 2024 spKt/V (Daugirdas II) 1.42 No Reference Range Provided - December 30, 2024 wstdKt/V without residual 2.4 No Reference Range Provided - December 30, 2024 Bone/Mineral Result Type Result Value Relevant [...] 45 0 - 54 - October 28 25 Phosphorus 5.1 mg/dL 2.6 - 4.5 mg/dL High October 28 025 Calcium, Total 8.9 mg/dL 8.4 - [...] High Nov Corrected Ca x P Product 28 0 - 54 - December 28, 2024 Calcium, Total 8.3 mg/dL 8.4 - 10.2 mg/dL Low December 28, 2024 Ca x P Product 27 0 - 54 - December 28, 025 Phosphorus 3.3 mg/dL 2.6 - 4.5 [...] 70 - 100 mg/dL High October 28 25 Globulin (Calc) 2.2 g/dL 2.0 - 4.0 g/dL - November 25, 2024 A/G Ratio 1.8 1.0 - 2.0 - November 25, 2024 Glucose 209 mg/dL 70 - 100 mg/dL High November 25 025 eNPCR 0.71 No Reference Range Provided - November 25, 2024 Total Protein 6.1 g/dL 6.0 - 8.5 g/dL - November Albumin (BCG) 3.9 g/dL 3.5 - 5.2 g/dL - November A/G Ratio 1.9 1.0 - 2.0 - December 28, 2024 Globulin (Calc) 1.9 g/dL 2.0 - 4.0 g/dL Low December 28, 2024 Glucose 183 mg/dL 70 - 100 mg/dL High December 28 025 Albumin (BCG) 3.7 g/dL 3.5 - 5.2 g/dL - December Total Protein 5.6 g/dL 6.0 - 8.5 g/dL Low December eNPCR 0.62 No Reference Range Provided - December 30, 2024 Lipid Result Type Result Value Relevant Referen ce Range Interpretation Date LDL, (Calculated) 32 mg/dL 0 - 99 mg/dL - August 26, 2024 VLDL (Calculated) 35 mg/dL 10 - 30 mg/dL High [facility] 2024 Cholesterol HDL Ratio 2.8 0.0 [...] Conventional Hemodialysis Data Element Value Order Date/Time January 01, 2025 Frequency 3X Week Treatment Days TueThuSat Dialyzer 180NRe Optiflux Treatment Time (Total Minutes) 240 min Blood Flow Rate (mL/min) 450 mL/min Dialysate Flow Rate Manual 800 Estimated Dry Weight 103.5 kg Dialysate Concentrate 3.0 K, 2.5 Ca, 1.0 Mg, 100 Dextrose (N3251) Sodium (mEq/L) 138 mEq/L Bicarb Machine Setting (mEq/L) 32 mEq/L Dialysis Access Primary - Hemodialys is-AV Graft-Synthetic - [place] Acuseal, Right Upper Arm, Brachial Artery to Axillary Vein Access Placed on November 29, 2024 Secondary - Hemodialysis-CV Catheter-Tunneled, Chest, Right Jugular Access Placed on April 01, 2024 Arterial Needle Size 15g1 Venous Needle Size 15g1 IMMUNIZATIONS Vaccine Date Dose Route Status HEPLISAV-B, [...] (mL/min) Dialysate Dialyzer Dialysis Access Meds Admin January 01, 2025 Weight 103.80 kg Weight 103.20 kg 04:08:00 450 3.0 K, 2.5 Ca, 1.0 Mg, 100 Dextrose (N3251) 180nre Optifl ux Blood Pressure-sitting 122/63 mmHg Blood Pressure-sit ting 138/76 mmHg Blood Pressure-standing 108/57 mmHg Blood Pressure-st anding 100/62 mmHg Heart Rate 104 beats per minute Heart Rate 72 beats per minute Respiratory Rate 16 breaths per minute Respiratory Rate 16 breaths per minute Temperature 98.6 deg. F Temperature 97.5 deg. F January 04, 2025 Weight 104.80 kg Weight 103.60 kg 04:04:00 460 3.0 K, 2.5 Ca, 1.0 Mg, 100 Dextrose (N3251) 180nre Optiflux Hemodialysis-AV Graft-Synthetic - [place] Acuseal, Right Upper Arm, Brachial Artery to Axillary Vein Access Placed on November 29, 2024 Diphenhydramine; 50mg,Intravenous - push Epoetin Sarath (Epogen); 5800units,Intravenous - push Iron Sucrose (Venofer); 100mg,Intravenous - push Vitamin D (Calcitriol) Oral; 0.25mcg,Oral Blood Pressure-sitting 129/69 mmHg Blood Pressure-sit ting 139/74 mmHg Heart Rate 82 beats per minute Blood Pressure-standi ng 124/74 mmHg Respiratory Rate 16 breaths per minute Heart Rate 86 beats per minute Temperature 97.6 deg. F Respiratory Rate 18 breaths per minute - - Temperature 97.0 deg. F January 06, 2025 Weight 106.20 kg Weight 105.00 kg 04:10:00 400 3.0 K, 2.5 Ca, 1.0 Mg, 100 Dextrose (N3251) 180nre Optiflux Hemodialysis-AV Graft-Synthetic - [place] Acuseal, Right Upper Arm, Brachial Artery to Axillary Vein Access Placed on November 29, 2024 Diphenhydramine; 50mg,Intravenous - push Epoetin Sarath (Epogen); 5800units,Intravenous - push Heparin Sodium (Porcine) 1,000 Units/mL Systemic; 5000units,Intravenous - push Iron Sucrose (Venofer); 100mg,Intravenous - push Vitamin D (Calcitriol) Oral; 0.25mcg,Oral Blood Pressure-sitting 115/57 mmHg Blood Pressure-sit ting 120/50 mmHg Blood Pressure-standing 122/60 mmHg Blood Pressure-st anding 137/65 mmHg Heart Rate 99 beats per minute Heart Rate 100 beat s per minute Respiratory Rate 18 breaths per minute Respiratory Rate 16 breaths per minute Temperature 98.3 deg. F Temperature 98.0 deg. F
--- OUTSIDE RECORDS SUMMARY | 2025-01-10 11:43 | XMS_ITS | Patient Health Record ---
Author Organization [facility] Address [address] [place] [address] Care Team Providers Care Hair Spinning Machine Operator Name Role Phone Corrina AGUERO Primary Care Provider UnavailTito Adler Unavailable [phone] Paco LOMAS, Michael Unavailable Unavailable Sally Haney Unavailable [phone] Allergies Allergen (clinical drug ingredient) Drug/Non Drug Allergy documented on EMR Reaction Allergy Type Onset Date Status piperacillin / tazobactam Zosyn Unknown Drug Allergy Active allopurinol Allopurinol Unknown Drug Allergy Act darien metformin Metformin Unknown Drug Allergy Active Reason For Referral No Information Medications Medication SIG (Take, Route, Frequency, Duration) Notes Start Date End Date Status Lantus Active Vitamin D3 50 MCG (1999) Capsule 1 capsule Orally Once a day Active Lokelma 10 GM Packet 1 packet dissolved in water Orally every other day; Duration: 90 days 01/30/2022 Active Furosemide 40 MG Tablet 1 tablet Orally Once a day Active Osteo Bi-Flex One Per Day - Tablet as directed Orally Active Isosorbide Mononitrate ER 60 MG Tablet Extended Release 24 Hour 1 tablet Oral in the am; Duration: 90 Active Tamsulosin HCl 0.4 MG Capsule 2 capsules Oral daily; Duration: 30 Active Metoprolol Tartrate 100 MG Tablet 1 tablet with food Orally Twice a day Active NIFEdipine ER 60 MG Tablet Extended Release 24 Hour 1 tablet on an empty stomach Orally Once a day; Duration: 90 days 07/20/2021 Active Loratadine 10 MG Tablet 1 tablet Orally Once a day Active Magnesium Oxide 400 MG Tablet 1 tablet with food Orally Once a day Active Nitroglycerin 0.4 MG Tablet Sublingual as directed Sublingual Activ e Atorvastatin Calcium 10 MG Tablet TAKE 1 TABLET BY MOUTH ONCE DAILY Oral; Duration: 90 Active NovoLIN R Active Fluticasone Propionate 50 MCG/ACT Suspension 2spray in each nostril Nasally Twice a day Active [place] 3 1000 MG Capsule 1 capsule Orally twice daily Active Clopidogrel Bisulfate 75 MG Tablet TAKE 1 TABLET BY MOUTH ONCE DAILY Oral; Duration: 90 Active Diclofenac Sodium 1 % Gel as directed Externally Active Social History Tobacco Use: Social History Observation Description Date Details (start date - stop date) Never Smoker NA - NA Social History Tobacco Use: Social Info Question Answer Notes xTobacco Use/Smoking Are you a nonsmoker Additional Details Category Social Info Options Details Miscellaneous: Marital status: Children: yes x3 : yes Level of Education: 12th grade Current Employment Status retire d Drugs/Alcohol: Do you smoke marijuana? De nies Do you drink alcohol? 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) Active confirmed Problem Type II diabetes mellitus without complication (190139236) Type 2 diabetes mellitus without complications (E11.9) Active confirmed Problem Chronic kidney disease due to hypertension (713058819301847) Hypertensive chronic kidney disease with stage 1 through stage 4 chronic kidney disease, or unspecified chronic kidney disease (I12.9) Active confirmed Problem Chronic kidney disease stage 4 (886566915) Chronic kidney disease, stage 4 (severe) (N18.4) Active confirmed Problem Secondary hyperparathyroidism of renal origin (99685032) Secondary hyperparathyroidism of renal origin (N25.81) Active confirmed Problem Essential hypertension (55096392) HTN (hypertension), benign (I10) Active confirmed Problem Chronic kidney disease stage 4 (044349427) CKD (chronic kidney disease), stage IV (N18.4) Active confirmed Problem Hyperparathyroidism (57595900) Hyperparathyroidism (E21.3) Active confirmed Problem Benign hypertension (02395368) Hypertension, benign (I10) Active confirmed Problem Chronic lymphoid leukemia, disease (15700944) CLL (chronic lymphocytic leukemia) (C91.10) Active confirmed Problem Chronic kidney disease stage 4 (934560265) Chronic kidney disease, stage IV (severe) (N18.4) Active confirmed Problem Benign prostatic hypertrophy with outflow obstruction (922927522) BPH NOS w ur obs/LUTS (N40.1) Active confirmed Problem Chronic kidney disease stage 3A (disorder) (019956597) Chronic kidney disease, stage 3a (N18.31) Active [...] Encounter Location Date Provider Diagnosis [facility] [address] [place] [address] 2024 Tito Leone Chronic kidney disea se, [...] without complications E11.9 and Former smoker Z87.891 [facility] [address] [place] [address] 02/03/2024 Sally Haney Hypertensive chronic kidney disease with stage 1 through stage 4 chronic kidney disease, or unspecified chronic kidney disease I12.9 ; Chronic kidney disease, stage IV (severe) N18.4 ; 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 ; Non-nephrotic range proteinuria R80.9 ; Asymptomatic hyperuricemia E79.0 and Secondary hyperparathyroidism of renal origin N25.81 [facility] [address] [place] [address] 03/09/2024 Tito Leone [facility] [address] [place] [address] Dr [address] [place] [address] 07/16/2024 Tito Leone [facility] [address] [place] [address] Dr [address] [place] [address] 07/19/2024 Tito Leone Assessments Encounter Date Diagnosis [...] up in 3 months with labs at [facility] BMP, mag, uric acid, phos, PTH, [...] Name Order Date Basic Metabolic Panel (BMP) 74571 2023 Hemoglobin 35383 09/30/2023 Magnesium (B) 08954 09/30/2023 Phosphorus (B) 11687 09/30/2023 Protein (U) Random 82229 09/30/2023 Uric Acid (B) 92327 09/30/2023 Creatinine (U) 82458 09/30/2023 UA Reflex Micro, Reflex Cult 88330, 8101 5, 12564 09/30/2023 PTH Intact 56913 09/30/2023 Basic Metabolic Panel (BMP) 54613 2020 Phosphorus (B) 64948 12/07/2020 PTH Intact 42200 12/07/2020 Basic Metabolic Panel (BMP) 38356 2022 Ferritin 59371 06/18/2023 Hemoglobin 79253 06/18/2023 Iron Binding Capacity Total 12718 2022 Iron Level 26500 06/18/2023 Magnesium (B) 13513 06/18/2023 Phosphorus (B) 97072 06/18/2023 Protein (U) Random 71223 06/18/2023 Uric Acid (B) 63849 06/18/2023 Creatinine (U) 22198 06/18/2023 UA Reflex Micro, Reflex Cult 03702, 8101 5, 92700 06/18/2023 PTH Intact 72898 06/18/2023 Albumin 79139 02/03/2024 Basic Metabolic Panel (BMP) 52649 2023 Ferritin 14391 02/03/2024 Hemoglobin 33483 02/03/2024 Iron Binding Capacity Total 76641 2023 Iron Level 08293 02/03/2024 Magnesium (B) 99615 02/03/2024 Phosphorus (B) 11275 02/03/2024 Protein (U) Random 28992 02/03/2024 Uric Acid (B) 18413 02/03/2024 Vitamin D Total (B) 81062 02/03/2024 Creatinine (U) 81605 02/03/2024 UA Reflex Micro, Reflex Cult 90427, 8101 5, 94294 02/03/2024 PTH Intact 69613 02/03/2024 % Iron Saturation (Fe & TIBC)--08307,835 50 02/03/2024 Future Test Test Name Order Date Basic Metabolic Panel (BMP) 77530 2023 CBC w\ Auto Diff 78971 06/17/2024 Ferritin 48565 06/17/2024 Hemoglobin 04877 06/17/2024 Magnesium (B) 60917 06/17/2024 Phosphorus (B) 02816 06/17/2024 Protein (U) Random 57038 06/17/2024 Uric Acid (B) 63564 06/17/2024 Microalbumin (U) Random 72555 06/17/2024 Creatinine (U) 80727 06/17/2024 UA Reflex Micro, Reflex Cult 04499, 8101 5, 71938 06/17/2024 PTH Intact 07456 06/17/2024 % Iron Saturation (Fe & TIBC)--07685,835 50 06/17/2024 Insurance Providers Payer Name Payer Address Payer Phone Subscriber Number Group Number Insured Name Patient Relationship to Insured Coverage Start Date Coverage End Date [employer] [address] [place] [address] [id number] Valente Renae Self - patient is the [...]
--- OUTSIDE RECORDS SUMMARY | 2025-01-10 11:43 | XMS_ITS | Encounter Summary ---
Author Organization [facility] Address [address] [place] [address] Care Team Providers Care Rim Buster Name Role Phone Paula Sandoval MD Primary Care Provider + [phone] Encounter Details Date Type Department Care Team (Late st Contact Info) Description 01/10/2025 Specialty Pharmacy [facility] [address] [place] [address] Wendi Bauman, PHARMACIST Social History Tobacco Use Types Packs/Day Years [...] Info) Description 01/17/2025 11:45 AM CDT Appointment [facility] [address] [facility] [address] [place] [address] 01/19/2025 3:00 PM CDT Office Visit [facility] [place] [address] [facility] [facility] [address] [place] [phone] Iqra Brito NP [address] [place] [address] 511- 01/21/2025 11:00 AM CDT Office Visit [facility] [address] [facility] [address] [place] [address] Lyndsey Dorsey, MARCELLO [address] [facility] [address] [place] [address] 02/07/2025 2:00 PM CDT Hospital Encounter [facility] Endoscopy [address] [place] [address] Clinton Ascencio, DO [address] [facility] [address] [place] [address] 02/07/2025 2:00 PM CDT - 02/07/2025 2:20 PM CDT Surgery [facility] Endoscopy [address] [place] [address] Clinton Ascencio, DO [address] [facility] [address] [place] [address] ESOPHAGOGASTRODUODENOSCOPY 03/18/2025 11:30 AM CDT Office Visit [facility] Vascular Surgery [place] [address] [facility] [address] [place] [address] Klarissa Flowesr MD [address] [facility] [address] [place] [address] Scheduled Procedures Name Priority Associated Diagnoses Date/Ti me ESOPHAGOGASTRODUODENOSCOPY gastric ulcer 02/07/2025 2:00 PM CDT documented as of this encounter Visit Diagnoses Not on filedocumented in this encounter Care Teams Rim Buster Relationship Specialty Start Date End Date Paula Sandoval MD [address] [place] [address] PCP - General Family Practice 10/18/24 documented as of this encounter
--- OUTSIDE RECORDS SUMMARY | 2025-01-10 11:43 | XMS_ITS | Encounter Summary ---
Author Organization [facility] Address [address] [place] [address] Care Team Providers Care Loan Representative Name Role Phone Paula Sandoval MD Primary Care Provider + [phone] Encounter Details Date Type Department Care Team (Late st Contact Info) Description 01/07/2025 Abstract [facility] Cancer [facility] Hematology [place] [address] [address] [place] [address] Umm Dotson, [address] [place] [address] Social History Tobacco Use Types Packs/Day Years [...] Info) Description 01/17/2025 11:45 AM CDT Appointment [facility] Laboratory Services [address] [facility] [address] [address] [place] [phone] 01/19/2025 3:00 PM CDT Office Visit [facility] Cancer and Hematology [place] [address] [place] [phone] Iqra Brito NP [address] [phone] 01/21/2025 11:00 AM CDT Office Visit [facility] [address] [facility] [address] [place] [address] Lyndsey Dorsey, MARCELLO [address] [facility] [address] [place] [address] 02/07/2025 2:00 PM CDT Hospital Encounter [facility] Endoscopy [address] [place] [address] Clinton Ascencio, DO [address] [address] 02/07/2025 2:00 PM CDT - 02/07/2025 2:20 PM CDT Surgery [facility] Endoscopy [address] [place] [address] Clinton Ascencio, DO [address] [facility] [address] [place] [address] ESOPHAGOGASTRODUODENOSCOPY 03/18/2025 11:30 AM CDT Office Visit [facility] Vascular Surgery [place] [address] [place] [address] Klarissa Flowers MD [address] [facility] [address] [place] [address] Scheduled Procedures Name Priority Associated Diagnoses Date/Ti me ESOPHAGOGASTRODUODENOSCOPY gastric ulcer 02/07/2025 2:00 PM CDT documented as of this encounter Visit Diagnoses Not on filedocumented in this encounter Care Teams Loan Representative Relationship Specialty Start Date End Date Paula Sandoval MD [address] [place] [phone] PCP - General Family Practice 10/18/24 documented as of this encounter
--- OUTSIDE RECORDS SUMMARY | 2025-01-10 11:43 | XMS_ITS | Encounter Summary ---
Author Organization [facility] Address [address] [place] [address] Care Team Providers Care Supervisor Counseling And Guidance Name Role Phone Paula Sandoval MD Primary Care Provider + [phone] Encounter Details Date Type Department Care Team [...] Info) Description 01/17/2025 11:45 AM CDT Appointment [facility] [address] [facility] [address] [place] [address] 01/19/2025 3:00 PM CDT Office Visit [facility] Cancer and Hematology [place] [address] [employer] [facility] 2 [place] [address] Iqra Brito NP [address] [place] [address] 01/21/2025 11:00 AM CDT Office Visit [facility] [address] [place] [address] Lyndsey Dorsey, MARCELLO [address] [place] [address] 02/07/2025 2:00 PM CDT Hospital Encounter [facility] Endoscopy [address] [place] [address] Clinton Ascencio, DO [address] [facility] [address] [place] [address] 02/07/2025 2:00 PM CDT - 02/07/2025 2:20 PM CDT Surgery [facility] Endoscopy [address] [place] [address] Clinton Ascencio, DO 5 [facility] [address] [place] [address] ESOPHAGOGASTRODUODENOSCOPY 03/18/2025 11:30 AM CDT Office Visit [facility] Vascular Surgery [place] [address] [facility] 5000 [place] [address] Klarissa Flowers MD 5 [address] [facility] [address] [place] [address] Scheduled Procedures Name Priority Associated Diagnoses Date/Ti me ESOPHAGOGASTRODUODENOSCOPY gastric ulcer 02/07/2025 2:00 PM CDT documented as of this encounter Visit Diagnoses Not on filedocumented in this encounter Care Teams Supervisor Counseling And Guidance Relationship Specialty Start Date End Date Paula Sandoval MD [address] [place] [address] PCP - General Family Practice 10/18/24 documented as of this encounter
--- OUTSIDE RECORDS SUMMARY | 2025-01-10 11:43 | XMS_ITS | Encounter Summary ---
Author Organization [facility] Address [address] [place] [address] Care Team Providers Care Educational/Development Assistant Name Role Phone Paula Sandoval MD Primary Care Provider + [phone] Reason for Visit * Reason Onset Date Comments Pacemaker has been transferred 01/07/2025 Encounter Details Date Type Department Care Team (Late st Contact Info) Description 01/07/2025 Telephone [facility] [address] [facility] [address] [place] [address] Sotero Alejandro MD [address] [facility] [address] [place] [address] Pacemaker has been transferred Social History Tobacco Use Types Packs/Day Years [...] * Telephone Encounter - Cody Baltazar - 01/10/2025 9:26 AM CDT Answered per previous phone call. * Telephone Encounter - Heather Vergara - 01/10/2025 8:56 AM CDT Provider: Dr Alejandro Person Calling: Senia Phone #: [phone] Relationship to patient: , on PHI Caller states she spoke with [employer] this morning, states pacemaker was transferred last week from [facility] to [facility]. She is asking for a call back to verify that remote can be done and patient can go to dialysis today instead of coming here for an appt. Pt missed dialysis Friday and needs to go today. -Heather Vergara * Telephone Encounter - Cody Baltazar. - 01/07/2025 8:31 AM CDT Left VM for patient to please return call. Have not rcv'd remote transmission. Will probably need to maintain the scheduled in clinic device check for 01-10-2025 @ 3:00pm, if he is unable to send the transmission. documented in this encounter Plan of Treatment Upcoming Encounters Date Type Department Care Team (Latest Contact Info) Description 01/17/2025 11:45 AM CDT Appointment [facility] Laboratory Services [address] [address] 01/19/2025 3:00 PM CDT Office Visit [facility] Cancer and Hematology [place] [address] [address] Iqra Brito NP [address] [address] 01/21/2025 11:00 AM CDT Office Visit [facility] [address] [facility] [address] [place] [address] Lyndsey Dorsey, INDUSTRIAL AUTOMATION ENGINEER [address] [facility] [address] [place] [address] 02/07/2025 2:00 PM CDT Hospital Encounter [facility] Endoscopy [address] [place] [address] Clinton Ascencio, DO [address] [facility] 3300 [place] [address] 02/07/2025 2:00 PM CDT - 02/07/2025 2:20 PM CDT Surgery [facility] Endoscopy 1235 [place] [address] Clinton Ascencio, DO [address] [facility] [address] [place] [address] ESOPHAGOGASTRODUODENOSCOPY 03/18/2025 11:30 AM CDT Office Visit [facility] Vascular Surgery [place] [address] [place] [address] Klarissa Flowers MD 5 [address] [facility] 5000 [place] [address] Scheduled Procedures Name Priority Associated Diagnoses Date/Ti me ESOPHAGOGASTRODUODENOSCOPY gastric ulcer 02/07/2025 2:00 PM CDT documented as of this encounter Visit Diagnoses Not on filedocumented in this encounter Care Teams Educational/Development Assistant Relationship Specialty Start Date End Date Paula Sandoval MD [address] [place] [address] PCP - General Family Practice 4/28/25 documented as of this encounter
--- OUTSIDE RECORDS SUMMARY | 2025-01-10 11:43 | XMS_ITS | Encounter Summary ---
Author Organization [facility] Address [address] [place] [address] Care Team Providers Care Lime Filter Operator Name Role Phone Paula Sandoval MD Primary Care Provider + [phone] Encounter Details Date Type Department Care Team [...] Info) Description 01/17/2025 11:45 AM CDT Appointment [facility] Laboratory Services [address] [facility] 2 [place] [address] 01/19/2025 3:00 PM CDT Office Visit [facility] Cancer and Hematology [place] [address] [place] [employer] [facility] 2 [place] [address] Iqra Brito NP [address] [place] [address] 01/21/2025 11:00 AM CDT Office Visit [facility] [address] [place] [address] Lyndsey Dorsey, MARCELLO [address] [facility] [address] [place] [address] 02/07/2025 2:00 PM CDT Hospital Encounter [facility] Endoscopy [address] [place] [address] Clinton Ascencio, DO [address] [facility] [address] [place] [address] 02/07/2025 2:00 PM CDT - 02/07/2025 2:20 PM CDT Surgery [facility] Endoscopy [address] [place] [address] Clinton Ascencio, DO 5 [facility] [address] [place] [address] ESOPHAGOGASTRODUODENOSCOPY 03/18/2025 11:30 AM CDT Office Visit [facility] Vascular Surgery [place] [address] [facility] 5000 [place] [address] Klarissa Flowers MD 5 [address] [facility] 5000 [place] [address] Scheduled Procedures Name Priority Associated Diagnoses Date/Ti me ESOPHAGOGASTRODUODENOSCOPY gastric ulcer 02/07/2025 2:00 PM CDT documented as of this encounter Visit Diagnoses Not on filedocumented in this encounter Care Teams Lime Filter Operator Relationship Specialty Start Date End Date Paula Sandoval MD [address] [place] [address] PCP - General Family Practice 10/18/24 documented as of this encounter
--- OUTSIDE RECORDS SUMMARY | 2025-01-10 11:43 | XMS_ITS | Encounter Summary ---
Author Organization [facility] Address [address] [place] [address] Care Team Providers Care Cam Milling Machine Operator Name Role Phone Paula Sandoval MD Primary Care Provider + [phone] Reason for Visit * Reason Onset Date Comments Question 01/10/2025 Encounter Details Date Type Department Care Team (Late st Contact Info) Description 01/10/2025 Telephone [facility] [address] [facility] [address] [place] [address] Sotero Alejandro MD [address] [facility] [address] [place] [address] Question Social History Tobacco Use Types [...] encounter Miscellaneous Notes * Telephone Encounter - oCdy Baltazar - 01/10/2025 9:02 AM CDT Spoke with Senia via phone. Noted the transmission today was successfuly, noted GENA/WHARFMASTER triggered 12-03-2024. Noted that in clinic appt today sign painter helper be cancelled due to today's successful remote transmission. Noted we will send to Dr. Alejandro's team and they will be reaching out to schedule the gen change. documented in this encounter Plan of Treatment Upcoming Encounters Date Type Department Care Team (Latest Contact Info) Description 01/17/2025 11:45 AM CDT Appointment [facility] Laboratory Services [address] [facility] 2 [place] [address] 01/19/2025 3:00 PM CDT Office Visit [facility] Cancer and Hematology [place] [address] [facility] 2 [place] [address] Iqra Brito NP [address] [address] 570- 01/21/2025 11:00 AM CDT Office Visit [facility] [address] [facility] [address] [place] [address] Lyndsey Dorsey, MARCELLO [address] [facility] [address], [address] [place] [address] 495- 02/07/2025 2:00 PM CDT Hospital Encounter [facility] Endoscopy [address] [place] [address] Clinton Ascencio DO [address] [place] [address] 02/07/2025 2:00 PM CDT - 02/07/2025 2:20 PM CDT Surgery [facility] Endoscopy [address] [place] [address] Clinton Ascencio DO [address] [facility] [address] [place] [address] ESOPHAGOGASTRODUODENOSCOPY 03/18/2025 11:30 AM CDT Office Visit [facility] Vascular Surgery [place] [address] [place] [address] Klarissa Flowers MD [address] [place] [place] [address] [place] [address] Scheduled Procedures Name Priority Associated Diagnoses Date/Ti me ESOPHAGOGASTRODUODENOSCOPY gastric ulcer 02/07/2025 2:00 PM CDT documented as of this encounter Visit Diagnoses Not on filedocumented in this encounter Care Teams Cam Milling Machine Operator Relationship Specialty Start Date End Date Paula Sandoval MD [address] [place] [address] PCP - General Family Practice 10/18/24 documented as of this encounter
--- OUTSIDE RECORDS SUMMARY | 2025-01-10 11:44 | XMS_ITS | Encounter Summary ---
Author Organization [facility] Address [address] [place] [address] Care Team Providers Care Aircraft Design Engineer Name Role Phone Paula Sandoval MD Primary Care Provider + [phone] Reason for Visit * Reason Onset Date Comments Medication Refill 01/10/2025 Encounter Details Date Type Department Care Team (Late st Contact Info) Description 01/10/2025 Refill [facility] Cancer and Hematology [place] [address] [facility] 2 [place] [address] Umm Dotson, [address] [place] [address] CLL (chronic lymphocytic leukemia) ([facility] Social History Tobacco Use Types Packs/Day Years [...] encounter Miscellaneous Notes * Telephone Encounter - Dianne Crandall RN - 01/10/2025 9:58 AM CDT Of note, we have been waiting on auth from [place] before being able to send prescription Script sent today OV notes faxed via RightFax to [phone] Secure chat received Thank you! @Dianne Crandall RN Can you please forward his script to the [place]? SHREYA WORTHY [facility] - [place], [place] - [address], [place] [address] CS They will also need clinical notes faxed to them documented in this encounter Plan of Treatment Upcoming Encounters Date Type Department Care Team (Latest Contact Info) Description 01/17/2025 11:45 AM CDT Appointment [facility] Laboratory Services [address] [address] 01/19/2025 3:00 PM CDT Office Visit [facility] [place] [address] [address] Iqra Brito NP [address] [address] 01/21/2025 11:00 AM CDT Office Visit [facility] [address] [place] [address] Lyndsey Dorsey, MARCELLO [address] [facility] [address] [place] [address] 02/07/2025 2:00 PM CDT Hospital Encounter [facility] Endoscopy [address] [place] [address] Clinton Ascencio, DO [address] [facility] [address] [place] [address] 02/07/2025 2:00 PM CDT - 02/07/2025 2:20 PM CDT Surgery [facility]oscopy [address] [place] [place] [address] Clinton Ascencio, DO [address] [place] [address] [place] [address] ESOPHAGOGASTRODUODENOSCOPY 03/18/2025 11:30 AM CDT Office Visit [facility] Vascular Surgery [place] [address] [facility] 5000 [place] [address] Klarissa Flowers MD [address] [facility] 5000 [place] [address] Scheduled Procedures Name Priority Associated Diagnoses Date/Ti me ESOPHAGOGASTRODUODENOSCOPY gastric ulcer 02/07/2025 2:00 PM CDT documented as of this encounter Visit Diagnoses Diagnosis CLL (chronic lymphocytic leukemia) (CMS/HCC) Chronic lymphoid leukemia, without mention of having achieved remission documented in this encounter Care Teams Aircraft Design Engineer Relationship Specialty Start Date End Date Paula Sandoval MD [address] [place] [address] PCP - General Family Practice 10/18/24 documented as of this encounter
--- OUTSIDE RECORDS SUMMARY | 2025-01-10 11:44 | XMS_ITS | Encounter Summary ---
Author Organization [facility] Address [address] [place] [address] Care Team Providers Care Shell Molder Name Role Phone Paula Sandoval MD Primary Care Provider + [phone] Reason for Visit * Reason Onset Date Comments Question 01/10/2025 Encounter Details Date Type Department Care Team (Late st Contact Info) Description 01/10/[address] [facility] [address] [facility] [address] [place] [address] Sotero Alejandro MD [address] [facility] [address] [place] [address] Question Social History Tobacco Use Types [...] Telephone Encounter - Cody Baltazar - 01/10/2025 9:29 AM CDT Spoke with Brooke via phone. Recapped previous phone call to Senia, noted today's transfer was rcv'd. Noted GENA/SPONGE PACKER triggered 12-03-2024. Noted we have messaged Dr. Alejandro's team to please schedule gen change and they will be reaching out to patient to schedule gen change. Today's in clinic check for 3:00pm cancelled. * Telephone Encounter - Musa Sher - 01/10/2025 9:15 AM CDT [facility] Call Center Communications Flavia (Provider) Caller: Brooke Relation to Patient: daughter PHI (Y/N): y MESSAGE Calling to speak to [facility] Cardiology Staple Side Laster: Musa documented in this encounter Plan of Treatment Upcoming Encounters Date Type Department Care Team (Latest Contact Info) Description 01/17/2025 11:45 AM CDT Appointment [facility] Laboratory Services [address] [address] 01/19/2025 3:00 PM CDT Office Visit [facility] Cancer and Hematology [place] [address] [address] Iqra Brito NP [address] [address] 343- 01/21/2025 11:00 AM CDT Office Visit [facility] [address] [facility] [address] [place] [address] Lyndsey Dorsey NP [address] [facility] [address], [address] [place] [address] 02/07/2025 2:00 PM CDT Hospital Encounter [facility] Endoscopy [address] [place] [address] Clinton Ascencio, DO [address] [facility] 3300 [place] [address] 02/07/2025 2:00 PM CDT - 02/07/2025 2:20 PM CDT Surgery [facility] Endoscopy [address] [place] [address] Clinton Ascencio, DO [address] [facility] 3300 [place] [address] ESOPHAGOGASTRODUODENOSCOPY 03/18/2025 11:30 AM CDT Office Visit [facility] Vascular Surgery [place] [address] [facility] 5000 [place] [address] Klarissa Flowers MD [address] [facility] 5000 [place] [address] Scheduled Procedures Name Priority Associated Diagnoses Date/Ti me ESOPHAGOGASTRODUODENOSCOPY gastric ulcer 02/07/2025 2:00 PM CDT documented as of this encounter Visit Diagnoses Not on filedocumented in this encounter Care Teams Shell Molder Relationship Specialty Start Date End Date Paula Sandoval MD [address] [place] [address] PCP - General Family Practice 10/18/24 documented as of this encounter
--- OUTSIDE RECORDS SUMMARY | 2025-01-10 11:45 | XMS_ITS | Encounter Summary ---
Author Organization [facility] Address [address] [place] [address] Care Team Providers Care Tank Pumper Panelboard Name Role Phone Paula Sandoval MD Primary Care Provider + [phone] Reason for Visit * Reason Onset Date Comments Appointment Notification 05/25/2024 Needs a different appointment time 05/25/2024 Encounter Details Date Type Department Care Team (Late st Contact Info) Description 05/25/2024 Telephone [facility] [address] [place] [address] Eugenie Mederos, PHYSICAL MEDICINE PHYSICIAN [address] [facility] ED [address] [place] [address] Appointment Notification; Needs a different appointment [...] @ 3:00pm rescheduled, please. PT states Mon, Fri and Friday are preferred Tues, Thurs and Sat are out, because he has dialysis Needs 10:30a and later due to the long drive in from [place] Please assist . Thank you Cardiology Stoker Installer: Kathi Putnam IFF'S DETECTIVE documented in this encounter Plan of Treatment Upcoming Encounters Date Type Department Care Team (Latest Contact Info) Description 01/17/2025 11:45 AM CDT [facility]ment [facility] [address] [address] 01/19/2025 3:00 PM CDT Office Visit [facility] Cancer and Hematology [place] [address] [address] Iqra Brito NP [address] [address] 01/21/2025 11:00 AM CDT Office Visit [facility] [address] [place] [address] Lyndsey Dorsey, MARCELLO [address] [facility] [address] [place] [address] 02/07/2025 2:00 PM CDT Hospital Encounter [facility] Endoscopy [address] [place] [address] Clinton Ascencio, [address] [facility] [address]00 [place] [address] 02/07/2025 2:00 PM CDT - 02/07/2025 2:20 PM CDT Surgery [facility] Endoscopy [address] [place] [address] Clinton Ascencio DO [address] [facility] [address]00 [place] [address] ESOPHAGOGASTRODUODENOSCOPY 03/18/2025 11:30 AM CDT Office Visit [facility] Vascular Surgery [place] [address] [facility] 5000 [place] [address] Klarissa Flowers MD [address] [facility] 5000 [place] [address] Scheduled Procedures Name Priority Associated Diagnoses Date/Ti me ESOPHAGOGASTRODUODENOSCOPY gastric ulcer 02/07/2025 2:00 PM CDT documented as of this encounter Visit Diagnoses Not on filedocumented in this encounter Care Teams Tank Pumper Panelboard Relationship Specialty Start Date End Date Paula Sandoval MD [address] [place] [address] PCP - General Family Practice 10/18/24 documented as of this encounter
[2025-01-10 12:09] VITALS: BP 109/57; PULSE 82; RESP 16; TEMP 36.6; O2SAT 95; BMI 32.1
[2025-01-10 12:17] LABS: Hematocrit 28.5 % (37-53); Hemoglobin 8.80 g/dL (11.27-16.99); Mean Corpuscular HGB Conc 30.9 g/dL (30-55); Mean Corpuscular Hemoglobin 33.1 pg (27-33); Mean Corpuscular Volume 107.1 fl (82-101); Nucleated Red Blood Cells % 0 %; Platelet Count 69 10^3/cmm (157-399); Red Blood Count 2.66 10^6/uL (3.85-5.65); White Blood Count 12.04 10^3/uL (3.29-11.43)
[2025-01-10 12:48] LABS: Alanine Aminotransferase 26 U/L (0-41); Albumin Level 3.7 g/dL (3.5-5.2); Alkaline Phosphatase 100 U/L (40-130); Anion Gap 19.2 (5-19); Aspartate Amino Transferase 14 U/L (0-40); Blood Urea Nitrogen 47 mg/dL (8-23); Calcium 9.0 mg/dL (8.5-10.5); Carbon Dioxide 26 mmol/L (22-29); Chloride 96 mmol/L (98-107); Creatinine Clr Calc Pharmacy 13.6652; Globulin 2.1 g/dL (1.3-4.6); Glucose 96 mg/dL (65-115); Osmolality Calculated 296 mOsm/kg (285-295); Potassium 4.2 mmol/L (3.5-5.1); Sodium 137 mmol/L (136-145); Total Protein 5.8 g/dL (6.6-8.7)
[2025-01-10 12:50] LABS: Slide Review Slide Review Perform
[2025-01-10 13:08] LABS: NT Pro B Type Natriuretic Pept 34440 pg/mL (0-450)
--- NOTE | 2025-01-10 14:03 | ECG_ITS ---
Conjure Test Date: 2025-01-10 Pat Name: Valente Renae Department: Room: Gender: Male Ribbon Weaver: : 1945 Requested By: Javid Cain Order Number: [id number] Helen MD: Orlando Juarez M.D. Measurements Intervals [place] Rate: 81 P: 28 ME: 252 QRS: 209 QRSD: 122 T: 21 QT: 398 QTc: 465 Interpretive Statements SINUS RHYTHM WITH FIRST DEGREE AV BLOCK WITH OCCASIONAL SUPRAVENTRICULAR PREMATURE COMPLEXES RIGHT BUNDLE BRANCH BLOCK [120+ ms QRS DURATION, UPRIGHT V1, 40+ ms S IN I/aVL/V4/V5/V6] LATERAL MYOCARDIAL INFARCTION , OF INDETERMINATE AGE [40+ ms Q WAVE AND/OR ST/T ABNORMALITY IN I/aVL/V5/V6] INFERIOR MYOCARDIAL INFARCTION , PROBABLY OLD [40+ ms Q WAVE AND/OR ST/T ABNORMALITY IN II/aVF] Compared to ECG 12/28/2024 22:09:47.Right bundle-branch block now present Intraventricular conduction delay no longer present .Atrial abnormality no longer present. Right ventricular hypertrophy no longer present Myocardial infarct finding still present Electronically Signed On 01-10-2025 17:08:07 CDT by Orlando Juarez M.D. [email or web address]
== END 2025-01-10 14:24 | disposition left against medical advice (07) ==
PROVIDERS: Emergency Medicine; Emergency Provider Family Medicine; PCP Family Medicine
DX: Z53.21 Procedure and treatment not carried out due to patient leaving prior to being seen by health care provider (principal); R06.02 Shortness of breath; Z95.0 Presence of cardiac pacemaker; I44.0 Atrioventricular block, first degree; I49.3 Ventricular premature depolarization; I21.9 Acute myocardial infarction, unspecified; I45.10 Unspecified right bundle-branch block
CPT/HCPCS: 36415; 71045; 80053; 83880; 85025; 93005; 99285

== ENCOUNTER 2025-01-13 11:11 | Inpatient (IN) | payer OTHER, MEDICARE, SELFPAY ==
--- OUTSIDE RECORDS SUMMARY | 2025-01-10 08:00 | XMS_ITS | Encounter Summary ---
Author Organization [facility] Address [address] [place] [address] Care Team Providers Care Salvage Cutter Name Role Phone Paula Sandoval MD Primary Care Provider [phone] Reason for Visit * Reason Comments Pacemaker Check Encounter Details Date Type Department Care Team (Late st Contact Info) Description 01/10/2025 8:00 AM CDT Procedure visit [facility] [address] [place] [address] Sotero Alejandro MD [address] [place] [address] Sick sinus syndrome (CMS/HCC) (Primary Dx) Social History Tobacco Use [...] as of this encounter Progress Notes * Cody Baltazar - 01/10/2025 9:11 AM CDT Please see procedure note. documented in this encounter Procedure Notes * Cody Baltazar. - 01/10/2025 9:11 AM CDTAssociated Order(s): PACER ANALYSIS REMOTE, UP TO 90 DAYS Procedure(s): UT REM INTERROG PM/LDLS PM <90 D PHYS/QHP; UT REM INTERROG PM/LDLS PM/IDS <90 DTECH REVIEW Pre-Procedure Diagnose(s): Sick sinus syndrome (CMS/HCC) Remote Transmission Report Date of Procedure: January 10, 2025 Events: 0 recorded episodes. GENA/[employer]UE triggered on 12-03-2024. Reviewed with family and they are aware Dr. Alejandro's team will be calling to schedule the gen change. Comments: remote transmission reveals normal dual chamber pacemaker (programmed VVI 65 due to GENA/COL[employer]OR [employer] INTERNAL [employer]VENUE status)function with stable available threshold and impedance trends. Presenting EGM indicates Ventricular Pacing, . Follow-up 3 week wound check post pending gen change. See attached report for details. documented in this encounter Plan of Treatment Upcoming Encounters Date Type Department Care Team (Latest Contact Info) Description 5 11:45 AM CDT Appointment [facility] Laboratory Services [address] [facility] [address] [place] [address] 5 1:44 PM CDT Hospital Encounter [facility] [address] [place] [address] Sotero Alejandro MD [address] [place] [address] Dilated cardiomyopathy (CMS/HCC) 5 1:44 PM CDT - 5 2:59 PM CDT Surgery [facility] [address] [place] [phone] Sotero Alejandro MD [address] [place] [address] Pacemaker Upgrade to Biventricular ICD w Anesthesia 5 11:00 AM CDT Office Visit [facility] [address] [facility] [address] [place] [address] Lyndsey Dorsey, MARCELLO [address] [facility] [address] [place] [address] 5 2:00 PM CDT Hospital Encounter [facility] [address] [place] [address] Clinton Ascencio, DO [address] [address] 5 2:00 PM CDT - 5 2:20 PM CDT Surgery [facility] [address] [place] [address] Clinton Ascencio, DO [address] [address] ESOPHAGOGASTRODUODENOSCOPY 5 11:30 AM CDT Office Visit [facility] Vascular Surgery [place] [id number] [address] Klarissa Flowers MD [address] [address] Scheduled Procedures Name Priority Associated Diagnoses Date/Ti me ESOPHAGOGASTRODUODENOSCOPY gastric ulcer 02/07/2025 2:00 PM CDT documented as of this encounter Procedures Procedure Name Priority Date/Time Associated Diagnosis Comments UT REM INTERROG PM/LDLS PM/IDS <90 D TECH REVIEW Routine 01/10/2025 7:41 AM CDT Sick sinus syndrome (CMS/HCC) UT REM INTERROG PM/LDLS PM <90 D PHYS/QHP Routine 01/10/2025 7:41 AM CDT Sick sinus syndrome (CMS/HCC) documented in this encounter Results * UT REM INTERROG PM/LDLS PM <90 D PHYS/QHP, UT REM INTERROG PM/LDLS PM/IDS <90 D TECH REVIEW (01/10/2025 7:41 AM CDT) 01/10/2025 7:41 AM CDT Narrative INTERFACE SYSTEM - 01/10/2025 9:18 AM CDT Remote Transmission Report Date of Procedure: January 10, 2025 Events: 0 recorded episodes. GENA/[employer] triggered on 12-03-2024. Reviewed with family and they are aware Dr. Alejandro's team will be calling to schedule the gen change. Comments: remote transmission reveals normal dual chamber pacemaker (programmed VVI 65 due to GENA/[employer] status) function with stable available threshold and impedance trends. Presenting EGM indicates Ventricular Pacing, . Follow-up 3 week wound check post pending gen change. See attached report for details. Procedure Note Provider, Historical - 01/10/2025 Remote Transmission Report Date of Procedure: January 10, 2025 Events: 0 recorded episodes. GENA/[employer] triggered on 12-03-2024. Reviewedwith family and they are aware Dr. Alejandro's team will be calling toschedule the gen change. Comments: remote transmission reveals normal dual chamber pacemaker (programmedVVI 65 due to GENA/[employer] status) function with stable available threshold andimpedance trends. Presenting EGM indicates Ventricular Pacing, . Follow-up 3 week wound check post pending gen change. See attached report for details. us Sotero Alejandro MD CARDIAC SERVICES ORDERABLES Edited Result - Final INTERFACE SYSTEM Refer to clinic/hospital department documented in this encounter Visit Diagnoses Diagnosis Sick sinus syndrome (CMS/HCC)- Primary Sinoatrial node dysfunction Pacemaker at end of battery life Fitting and adjustment of cardiac pacemaker Cardiac pacemaker in situ Cardiac left ventricular ejection fraction 21-40 percent Other symptoms involving cardiovascular system Dilated cardiomyopathy (CMS/HCC) Other primary cardiomyopathies Chronic combined systolic and diastolic CHF (congestive heart failure) (CMS/HCC) Ischemic dilated cardiomyopathy (CMS/HCC) Other specified forms of chronic ischemic heart disease Pacemaker at end of battery life Fitting and adjustment of cardiac pacemaker Cardiac pacemaker in situ Cardiac left ventricular ejection fraction 21-40 percent Other symptoms involving cardiovascular system Dilated cardiomyopathy (CMS/HCC) Other primary cardiomyopathies Chronic combined systolic and diastolic CHF (congestive heart failure) (CMS/HCC) Ischemic dilated cardiomyopathy (CMS/HCC) Other specified forms of chronic ischemic heart disease documented in this encounter Care Teams Salvage Cutter Relationship Specialty Start Date End Date Paula Sandoval MD [address] [place] [phone] PCP - General Family Practice 10/18/24 documented as of this encounter
--- OUTSIDE RECORDS SUMMARY | 2025-01-10 08:37 | XMS_ITS ---
Author Name [facility] Organization [facility] Address [address] [place] [address] Care Team Providers Care Finisher Hot Strip Name Role Phone TATO BARRAZA Primary Care [...] PART A Feb 21, 2009 PART A [id number] ANGELLA MARTIN PATIENT MEDICARE (WNR) MEDICARE (M) PART B Feb 21, 2009 PART B [id number] ANGELLA MARTIN PATIENT MEDICARE (WNR) MEDICARE (M) PART A Feb 21, 2009 PART A [id number] ANGELLA MARTIN PATIENT MEDICARE (WNR) MEDICARE (M) PART A Feb 21, 2009 PART A [id number] ANGELLA MARTIN PATIENT MEDICARE (WNR) MEDICARE (M) PART B Feb 21, 2009 PART B [id number] [phone] ANGELLA MARTIN PATIENT MEDICARE (WNR) MEDICARE (M) PART B Feb 21, 2009 PART B [id number] ANGELLA MARTIN PATIENT [employer] [place] [employer] PLAN F MEDIC ARE SUPPL EMENT 2013 PLAN F [id number] [phone] ANGELLA MARTIN PATIENT [employer] [place] [employer] MEDICARE SUPPLEMEN [place] MEDIC ARE SUPPL EMENT 2013 PLAN F [id number] [phone] ANGELLA MARTIN PATIENT Selected Encounter This section includes the information on record at MD for the Encounter. 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 This section includes future appointments and future orders which are active, pending or scheduled. Future Appointments This section includes appointments that were scheduled to occur 6 months from the date of the Encounter, up to a maximum of 20 appointments. The data comes from all MD treatment facilities. Appointment Date/Time Appointment Type Appointme nt Facility Name Jan 17, 2025 11:45 AM [facility] Feb 02, 2025 08:00 PM AM[facility]ULATORY - MEDIC[facility] [place] [facility] Feb 07, 2025 02:00 PM AMBULATORY - MEDICINE [place] [facility] Jun 13, 2025 08:40 AM AMBULATORY - MEDICINE [facility] Jun 20, 2025 10:00 AM AMBULATORY - MEDICINE [facility] Active, Pending, and Scheduled Orders This section includes a listing of several types of active, pending, and scheduled orders, including clinic medications orders, diagnostic test orders, procedure orders and consult orders; where the start date of the order is 45 days before the date of the Encounter or 45 days after the date of theEncounter. The data comes from all MD treatment facilities. Test Date/Time Test Type Test Details Facility Name Dec 20, 2024 10:07 AM Consult Order [facility]-HEMATOLOGY/ONC [id number] Cons Greenskeeper Supervisor's Choice [facility] Dec 22, 2024 12:54 PM Consult Order COMMUNITY [facility]-GI GENERAL [id number] Cons Greenskeeper Supervisor's Choice [facility] Dec 22, 2024 05:03 PM Consult Order COMM[facility]ITY [facility]-SLEEP STUDY-[id number] Cons Greenskeeper Supervisor's Choice [facility] Encounter Notes: All associated encounter notes This section contains the clinical notes associated to the Encounter. Date/Time Encounter Note(s) Provider Source Jan 10, 2025 01:37 PM PHARMACY CONSULT: LOCAL TITLE: NON FORMULARY CONSULT PB STANDARD TITLE: PHARMACY CONSULT DATE OF NOTE: JAN 10, 2025@13:37 ENTRY DATE: JAN 10, 2025@13:37:59 AUTHOR: BILLY NAIR V EXP COSIGNER: URGENCY: STATUS: COMPLETED The medical record has been reviewed with regard to this prior authorization drug request. This prior authorization drug request originated with a Community [facility] provider. Medication requested: Pirtobrutinib 50mg daily (Jaypirca) Medication indication: CLL Medical history relevant to this request: Chronic lymphocytic leukemia.Bendamustine/Rituxim ab 3-3 & 3-2015.Ibrutinib 420mg daily 02-12-2018 but had to reduce to 280mg then 140mg daily.Venetoclax 25mg daily start 05-31-21 but developed significant side effects had to discontinue.Trials of Acalabrutinib then Zanubrutinib did not tolerate. Zanubrutinib dcd May 2023. Approve Pirtobrutinib The request is approved - A documented adverse reaction occurred with the preferred formulary alternative(s) - A documented therapeutic failure of the preferred formulary alternative(s) exists /nichelle/ BILLY NAIR CLINICAL GREIGE GOODS EXAMINER Signed: 01/10/2025 13:50 Receipt Acknowledged By: 01/10/2025 14:23 /nichelle/ CAROLINA MCHUGH BORE MILL OPERATOR BILLY NAIR [facility]
--- OUTSIDE RECORDS SUMMARY | 2025-01-10 19:00 | XMS_ITS ---
Author Name Ro West Address [address] [place] [address] Phone [phone] Organization [facility] Car e, NA DOCUMENT DISCLAIMER Multiple document versions may exist, please be sure you review the latest version. The information in the [facility] Progress Note Document represents a providers documented clinical note containing certain health and medical information. It may not contain the complete medical history for the patient and should be independently verified. The represented time in the document is Eastern Time PROVIDER ROUNDING NOTE COMPREHENSIVE Patient:?Valente?Renae,?1945,?79y,?M Dialysis?Location:[place] Attending?Clinical Editor:?Sakshi Service?Date:?01/11/2025 Service?Provider:?Ro?Brett,? I?met?face?to?face?with?the?patient?today. 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 Needing?an?ICD?and?PPM?battery?changed.?Is?to?be?scheduled?soon?per??Flavia. He?has?some?SOB?today.?Has?leg?edema.?Will?challenge&#1 60;UF?today?and?lower?EDW. Medications?and?labs?reviewed. LAST?HOSPITALIZATION Discharge?Diagnosis:?R65.21?Severe?sepsis?with?septic?shock Admission?Date?12/04/24 Discharge?Date?12/11/24 DIALYSIS?PRESCRIPTION ??IHD?3x?Week?Start?date:?01/11/25 ??Dialyzer:?180NRe?Optiflux ??BFR:?450 ??DFR:?Manual?800 ??Potassium:?3.0 ??Sodium:?138 ??EDW:?103.5 ??Duration:?4:00 ??Calcium:?2.5 ??Bicarb:?32 ??Rx?updated?on:?01/10/2025 TREATMENT?ASSESSMENT Comments:?Stable BP?Stand?Pre ??01/06/2025:?122/60 ??01/01/2025:?108/57 BP?Sit?Pre ??01/06/2025:?115/57 ??01/04/2025:?129/69 ??01/01/2025:?122/63 BP?Stand?Post ??01/06/2025:?137/65 ??01/04/2025:?124/74 ??01/01/2025:?100/62 BP?Sit?Post ??01/06/2025:?120/50 ??01/04/2025:?139/74 ??01/01/2025:?138/76 Tx?Duration ??01/06/2025:?4:10 ??01/04/2025:?4:04 ??01/01/2025:?4:08 Missed?Treatments 3?-?last?30?days 3?-?last?60?days 01/08?-?recent FLUID?ASSESSMENT Comments:?Asa?above?lower?EDW?today?after?challenge?with UF. EDW?(kg) ??01/06/2025:?103.5 ??01/04/2025:?103.5 ??01/01/2025:?104.5 Weight?Pre?(kg) ??01/06/2025:?106.2 ??01/04/2025:?104.8 ??01/01/2025:?103.8 Weight?Post?(kg) ??01/06/2025:?105.0 ??01/04/2025:?103.6 ??01/01/2025:?103.2 PWV?(kg) ??01/06/2025:?1.5 ??01/04/2025:?0.1 ??01/01/2025:?-1.3 UF?Rate?(mL/kg/hr) ??01/06/2025:?2.7 ??01/04/2025:?2.8 ??01/01/2025:?1.4 ADEQUACY?ASSESSMENT Comments:?Stable?trend spKt/V,?URR ??12/30/2024:?1.42,?72.0 ??11/25/2024:?1.56,?76.0 ??10/28/2024:?1.62,?76.0 ACCESS?ASSESSMENT ??Access?Type:?AVGraft ??Access?SubType:?Synthetic?-?[place]?Acuseal ??Access?Status:?Active?(In?Use)?-?01/01/2025 ??Access?Location:?Right?Upper?Arm ??Created:?11/29/2024 Vascular?access?reviewed.?Current?access?is?permanent?and?functioning?well. ANEMIA?ASSESSMENT Comments:?On?IV?iron?and?ABI?protocol. HGB,?TSAT ??01/06/2025:?9.4,?- ??12/30/2024:?9.3,?- ??12/28/2024:?9.2,?29.0 ?? Ferritin ??12/02/2024:?516.0 ??11/25/2024:?582.0 ??08/26/2024:?197.0 Epoetin?Sarath?(Epogen),?IVP?(units) ??01/06/2025:?5800 ??01/04/2025:?5800 ??01/01/2025:?5800 Iron?Sucrose?(Venofer)?(mg) ??01/08/2025:?100 ??01/06/2025:?100 ??01/04/2025:?100 BMM?ASSESSMENT Comments:?Stable. PTH,?Intact ??11/25/2024:?432.0 ??08/26/2024:?275.0 ?? Calcium,?Phosphorus ??12/28/2024:?8.3,?3.3 ??11/25/2024:?8.6,?4.8 ??10/28/2024:?8.9,?5.1 Vitamin?D?(Calcitriol)?Oral?(mcg) ??01/08/2025:?0.25 ??01/06/2025:?0.25 ??01/04/2025:?0.25 NUTRITION?ASSESSMENT Comments:?Ed?to?increase?protein?in?diet. Referred?to?dietitian.? Potassium,?Albumin ??12/28/2024:?4.4,?3.7 ??11/25/2024:?4.4,?3.9 ??10/28/2024:?4.8,?3.9 ?? eNPCR ??12/30/2024:?0.62 ??11/25/2024:?0.71 ??10/28/2024:?0.86 PHYSICAL?EXAM Exam?Performed.?Vital?Signs?Reviewed.?CV?-?Blood?pressure&#1 60;noted.?EXT?-?2+?edema.?EXT?-?No?ulcers.?AVF/AVG Positive?thrill/bruit. DIAGNOSIS Chief?Complaint:?N18.6?End?stage?renal?disease Patient?is?stable. Patient?data?updated?01/11/2025?at?10:32?AM Signed?By:?Brett,?Ro???on?01/11/2025?10:34:29?AM END OF DOCUMENT
--- OUTSIDE RECORDS SUMMARY | 2025-01-11 05:32 | XMS_ITS | Encounter Summary ---
Author Name [facility] [place] [facility] [place] Organization [facility] [place] Address [address] [place] [address] Care Team Providers Care Residential Green Building Designer Name Role Phone TATO BARRAZA Primary Care [...] PART A Feb 21, 2009 PART A [id number] ANGELLA MARTIN PATIENT MEDICARE (WNR) MEDICARE (M) PART B Feb 21, 2009 PART B [id number] [phone] ANGELLA MARTIN PATIENT MEDICARE (WNR) MEDICARE (M) PART A Feb 21, 2009 PART A [id number] ANGELLA MARTIN PATIENT MEDICARE (WNR) MEDICARE (M) PART B Feb 21, 2009 PART B [id number] ANGELLA MARTIN PATIENT MEDICARE (WNR) MEDICARE (M) PART B Feb 21, 2009 PART B [id number] ANGELLA MARTIN PATIENT MEDICARE (WNR) MEDICARE (M) PART A Feb 21, 2009 PART A [id number] ANGELLA MARTIN PATIENT [place] [employer] [place] [employer] PLAN F MEDIC ARE SUPPL EMENT 2013 PLAN F [id number] [phone] ANGELLA MARTIN PATIENT [place] SUPPLEMEN [place] MEDIC ARE SUPPL EMENT 2013 PLAN F [id number] [phone] ANGELLA MARTIN PATIENT Selected Encounter This section includes the information on record at [place] for the Encounter. Date/Time Encounter Type Encounter Description Reason Provider Source Jan 11, 2025 10:32 AM Outpatient Encounter COMMUNITY CARE CONSULT DELGADO HARDEN Encounter Template Text not used by [place] Plan of Treatment: Future Appointments (+ 6 months) and Future Tests (+/- 45 days) The Plan of Treatment section includes future care activities for the patient from all [place] treatmentfacilities. This section includes future appointments and future orders which are active, pending or scheduled. Future Appointments This section includes appointments that were scheduled to occur 6 months from the date of the Encounter, up to a maximum of 20 appointments. The data comes from all [place] treatment [facility]. Appointment Date/Time Appointment Type Appointme nt Facility Name Jan 17, 2025 11:45 AM AMBULATORY - [facility]ICINE [facility] Feb 02, 2025 08:00 PM AMBULATORY - MEDICINE [facility] Feb 07, 2025 02:00 PM AMBULATORY - MEDICINE [facility] Jun 13, 2025 08:40 AM AM[facility]ATORY - MEDICINE [facility] Jun 20, 2025 10:00 AM AMBULATORY - MEDICINE [facility] Active, Pending, and Scheduled Orders This section includes a listing of several types of active, pending, and scheduled orders, including clinic medications orders, diagnostic test orders, procedure orders and consult orders; where the start date of the order is 45 days before the date of the Encounter or 45 days after the date of theEncounter. The data comes from all [facility]. Test Date/Time Test Type Test Details Facility Name Dec 20, 2024 10:07 AM Consult Order COMMUNITY CARE-HEMATOLOGY/ONC 657A4 Cons Staffing Director's Choice [facility] Dec 22, 2024 12:54 PM Consult Order COMMUNITY CARE-GI GENERAL 657A4 Cons Staffing Director's Choice [facility] Dec 22, 2024 05:03 PM Consult Order COMMUNITY [facility]-SLEEP STUDY-[id number] Cons Staffing Director's Cecilio [facility] CB Encounter Notes: All associated encounter notes This section contains the clinical notes associated to the Encounter. Date/Time Encounter Note(s) Provider Source Jan 11, 2025 10:34 AM ADDENDUM: LOCAL TITLE: Addendum STANDARD TITLE: ADDENDUM DATE OF NOTE: JAN 11, 2025@10:34:11 ENTRY DATE: JAN 11, 2025@10:34:12 AUTHOR: DELGADO HARDEN EXP COSIGNER: URGENCY: STATUS: COMPLETED Discharge Disposition Date of discharge: Dec Disposition Discharge to Comment: Left [facility] ER without being seen by provider after triage and testing. CC: SOB/ Dyspnea Gets Dialysis 3x a week. Per Patient: Missed dialysis on Friday due to not being able to get needle where it needed to be XR Chest 01/10/25 Impression: Poor Inspiratory Effort Please note per lab review (abnormal values): Chloride 96L BUN 47H Creatinine 5.3H Calculated Osmolality 296H BNP 07286 H Total Protein 5.8L WBC 12.04 H RBC 2.66L Hgb 8.80L Hct 28.5L MCV 107.1H MCH 33.1H RDW 18.8H Plt Count 59L Neut# 1.78L Lymph# 9.1H [place]# 1.0H No provider note to send to HIM for scanning. Episode of Care Complete. Signed ER Imaging and Lab Report sent to [facility] for scanning. Alerting PACT team for review /nichelle/ DELGADO HARDEN RN [facility] Signed: 01/11/2025 10:41 Receipt Acknowledged By: * AWAITING SIGNATURE * TATO BARRAZA 01/12/2025 09:34 /es/ LILIA SEALS 01/11/2025 10:54 /es/ Meaghan Go RN [facility], [facility] for JC Arnold JANAY * AWAITING SIGNATURE * NICHOLAS LION --- Original Document --- 01/10/25 COMMUNITY CARE-LISHA SELF PRESENTING CARE COORD PLAN 657A4 PB: Emergency Notification Intake Date Presenting to the Facility: Dec 11:37AM TOMB MAKER HELPER Method of Contact:Provider Notified from ECR worklist Notification ID: [id number] HSRM Referral #: Portal Generated [facility] Name: Hospital: [facility] Address: [address] [place] [address] City: [facility]: [place] Zip Code: [address] [facility] Facility Point of Contact: Name: Elizabeth Maradiaga Chief complaint: Trouble Breathing Disposition Unknown at time of intake note entry /es/ DELGADO HARDEN RN [facility] Signed: 01/11/2025 10:34 01/11/2025 ADDENDUM STATUS: COMPLETED Attempted to contact [place] to follow up on how he is doing. NO answer. Left Vm. /inchelle/ Meaghan Go RN [facility], [facility] Signed: 01/11/2025 10:55 01/10/2025 ADDENDUM STATUS: COMPLETED VistA Imaging Scanned Document - Addendum. [facility] SCANNED DOCUMENT SIGNATURE NOT REQUIRED Electronically Filed: 01/11/2025 by: DELGADO García [facility] Jan 10, 2025 11:55 AM NONVA NOTE: LOCAL TITLE: COMMUNITY CARE-LISHA SELF PRESENTING CARE COORD PLAN STANDARD TITLE: NONVA NOTE DATE OF NOTE: JAN 10, 2025@11:55 ENTRY DATE: JAN 11, 2025@10:32:34 AUTHOR: DELGADO HARDEN EXP COSIGNER: URGENCY: STATUS: COMPLETED COMMUNITY CARE-LISHA SELF PRESENTING CARE COORD PLAN 657A4 PB Has ADDENDA Emergency Notification Intake Date Presenting to the Facility: Dec 11:37AM TOMB MAKER HELPER Method of Contact:Provider Notified from ECR worklist Notification ID: [id number] HSRM Referral #: Portal Generated [facility] Hospital Name: Hospital: [facility] Address: [address] [facility] City: [place] State: [place] Zip Code: [address] Community Facility Point of Contact: Name: Elizabeth Maradiaga Chief complaint: Trouble Breathing Disposition Unknown at time of intake note entry /nichelle/ DELGADO HARDEN RN [facility] Signed: 01/11/2025 10:34 01/11/2025 ADDENDUM STATUS: COMPLETED Discharge Disposition Date of discharge: Dec Disposition Discharge to Comment: Left [facility] without being seen by provider after triage and testing. CC: SOB/ Dyspnea Gets Dialysis 3x a week. Per Patient: Missed dialysis on Friday due to not being able to get needle where it needed to be XR Chest 01/10/25 Impression: Poor Inspiratory Effort Please note per lab review (abnormal values): Chloride 96L BUN 47H Creatinine 5.3H Calculated Osmolality 296H BNP 48941 H Total Protein 5.8L WBC 12.04 H RBC 2.66L Hgb 8.80L Hct 28.5L MCV 107.1H MCH 33.1H RDW 18.8H Plt Count 59L Neut# 1.78L Lymph# 9.1H [place]# 1.0H No provider note to send to HIM for scanning. Episode of Care Complete. Signed ER Imaging and Lab Report sent to [facility] for scanning. Alerting PACT team for review /nichelle/ DELGADO HARDEN RN [place] Signed: 01/11/2025 10:41 Receipt Acknowledged By: * AWAITING SIGNATURE * TATO BARRAZA * AWAITING SIGNATURE * LILIA JUDD 01/11/2025 10:54 /es/ Meaghan Go RN [facility], [facility] for JC GUSTAFSON * AWAITING SIGNATURE * NICHOLAS LION 01/11/2025 ADDENDUM STATUS: COMPLETED Attempted to contact to follow up on how he is doing. NO answer. Left Vm. /nichelle/ Meaghan Go RN [facility], [facility] Signed: 01/11/2025 10:55 01/10/2025 ADDENDUM STATUS: COMPLETED VistA Imaging Scanned Document - Addendum. [facility] SCANNED DOCUMENT SIGNATURE NOT REQUIRED Electronically Filed: 01/11/2025 by: DELGADO García [facility]
[2025-01-13] VITALS (24 sets, daily range): BP systolic 122–179; BP diastolic 41–97; PULSE 65–87; RESP 18–36; TEMP 36.4–36.9; O2SAT 90–97; BMI 31.5
--- OUTSIDE RECORDS SUMMARY | 2025-01-13 06:12 | XMS_ITS | Continuity of Care Document ---
Author Name [facility] Organization [facility] Care Team Providers Care Scientific Director Name Role Phone [facility] Unavailable Unavailable Problems Combined list of problems from Department of Defense and Veterans Affairs facilities. It does not include entries that were removed or entered in error. Problem Status Onset Date Problem Type Date of Resolution Comments Source Allergic rhinitis Active Condition [place] [facility] Bilateral tinnitus Active Condition [place] [facility] BPH - benign prostatic hyperplasia Active Condition [place] [facility] Cardiac pacemaker in situ Active Condition [place] [facility] Cardiomyopathy Active Condition [place] [facility] Carotid artery narrowing Active Condition Mar 07, 2021 Entered By: TATO BARRAZA Comment: 50-60% bilaterally [place] [facility] Cerebrovascular accident Active Condition Mar 07, 2021 Entered By: TATO BARRAZA Comment: right hemiparesis (COVID) 12/2020 [place] [facility] Chronic congestive heart failure Active Condition Apr 26, 2024 Entered By: TATO BARRAZA Comment: combined [place] [facility] Chronic kidney disease stage 4 Active Condition Apr 26, 2024 Entered By: TATO BARRAZA Comment: hemodialysis T-Th-Sat [place] [facility] CLL - Chronic lymphocytic leukemia (SNOMED CT 56623412) [facility] Condition [facility] Coron[facility] artery disease (SNOMED CT 53648676) Active Condition [facility] Diabetic nephropathy Active Condition [facility] Diabetic polyneuropathy Active Condition [place] [facility] Exposure to potentially hazardous substance Active Condition [facility] - Gastro-esophageal reflux disease Active Condition [place] [facility] Hearing loss Active Condition [place] [facility] HLD - Hyperlipidemia (SNOMED CT 83299097) Active Condition [facility] HTN - Hypertension (SNOMED CT 47207316) Active Condition [place] [facility] Multiple actinic keratoses involving face Active Condition [place] [facility] Pain of left elbow joint Active Condition [place] [facility] Renal mass Active Condition Dec 31, 2 024 Entered By: TATO BARRAZA Comment: left; followed by plant tender [place] [facility] Sensorineural hearing loss of bilateral ears Active Condition [place] [facility] Sick sinus syndrome Active Condition [place] [facility] TIA Active Condition [place] [facility] Type 2 diabetes mellitus (SNOMED CT 77187213) Active Condition [place] [facility] Acute pancreatitis Inactive Condition 09/04/2020 [place] [facility] Arrhythmia * (ICD-9-CM 427.9) Inactive Condition 07/04/2016 [place] [facility] Family History of Diabetes Mellitus (ICD-9-CM V18.0) Inactive Condition 07/04/2016 [place] [facility] Hypertensive disorder (SNOMED CT 37640176) Inactive Condition 07/04/2016 [facility] Laboratory Examination Ordered as part of a Routine General Medical Examination Inactive Condition 07/04/2016 [facility] Routine General Medical Examination at a Health Care Facility * Inactive Condition 07/04/2016 [facility] Diagnosis: ICD-10-CM C91.10 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 Active Diagnosis [place] [facility] Diagnosis: ICD-10-CM 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 diabetes mellitus with unspecified complications Active Diagnosis [facility] Diagnosis: ICD-10-CM Z46.1 Encounter for fitting and adjustment of hearing aid Active Diagnosis [place] [facility] Diagnosis: ICD-10-CM R09.81 Nasal congestion Active Diagnosis [facility] Diagnosis: ICD-10-CM I50.9 Heart failure, unspecified Active Diagnosis [facility] Diagnosis: ICD-10-CM E78.5 Hyperlipidemia, unspecified Active Diagnosis [facility] Diagnosis: ICD-10-CM R93.89 Abnormal findings on dx imaging of oth body structures Active Diagnosis [facility] Diagnosis: ICD-10-CM H90.3 Sensorineural hearing loss, bilateral Active Diagnosis [place] [facility] Diagnosis: ICD-10-CM Z13.9 Encounter for screening, unspecified Active Diagnosis [place] [facility] Diagnosis: ICD-10-CM Z13.5 Encounter for screening for eye and ear disorders Active Diagnosis [facility] Diagnosis: ICD-10-CM 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 Diagnosis [facility] Diagnosis: ICD-10-CM Z71.89 Other specified counseling Active Diagnosis [facility] Diagnosis: ICD-10-CM H90.5 Unspecified sensorineural hearing loss Active Diagnosis [facility] Diagnosis: ICD-10-CM R10.9 Unspecified abdominal pain Active Diagnosis [facility] Medications Combined list of outpatient [...] A DAY ORAL ACTIVE TATO BARRAZA 2023 [facility] ATORVASTATI N CA 80MG TAB TAKE ONE TABLET BY MOUTH EVERY EVENING FOR HIGH CHOLESTE ROL TAKE ORALLY WITH EVENING MEAL ORAL ACTIVE 04/27/2025 [id number] 5 RADHA PINK [address] [place] [address] [facility] CARVEDILOL 6.25MG TAB TAKE ONE TABLET BY MOUTH TWICE A DAY FOR HEART FAILURE TAKE WITH FOOD. ORAL ACTIVE 12/23/2025 [id number] 5 TATO BARRAZA [address] [place] [address] [facility] CARVEDILOL 6.25MG TAB TAKE ONE-HALF TABLET BY MOUTH TWICE A DAY FOR HEART FAILURE TAKE WITH FOOD. ORAL DISCONT INUED (EDIT) 04/27/2025 [id number] 5 TATO BARRAZA [address] [place] [address] [facility] CHOLECALCIF ZULEYKA 50MCG (2,000UNIT) TAB TAKE TWO TABLETS BY MOUTH ONCE A DAY FOR VITAMIN D SUPPLEME NTATION ORAL ACTIVE 04/27/2025 [id number] 5 TATO BARRAZA [address] [place] [address] [facility] CHOLECALCIF ZULEYKA 50MCG (2,000UNIT) TAB TAKE TWO TABLETS BY MOUTH ONCE A DAY FOR VITAMIN D SUPPLEME NTATION ORAL DISCONT INUED 04/07/2024 [id number] JENY GAMA 2022 180 [place] [facility] CLOPIDOGREL BISULFATE 75MG TAB TAKE ONE TABLET BY MOUTH ONCE A DAY TO THIN BLOOD ORAL 02/06/2024 [id number] CHRISTI TATO 2022 90 [facility] DICLOFENAC NA 1% GEL,TOP APPLY 2 GM TO AFFECTED AREA(S) ONCE A DAY FOR PAIN/INF LAMMATIO N; NOT MORE THAN 16 GRAMS DAILY TO ANY LOWER EXTREMIT Y JOINT. NOT MORE THAN 8 GRAMS DAILY TO ANY UPPER EXTREMIT Y JOINT. MAX 32GM/DAY OVER ALL JOINTS. (MEASURE DOSE WITH RULER ATTACHED INSIDE BOX) TOPICA L ACTIVE 04/27/2025 [id number] 5 CHRISTIALFMY 2023 300 [facility] FINASTERIDE 5MG TAB TAKE ONE TABLET BY MOUTH ONCE A DAY SWALLOW WHOLE, DO NOT CRUSH, SPLIT, OR CHEW. ORAL ACTIVE 09/18/2025 [id number] 5 RADHA PINK 2024 90 [facility] FINASTERIDE 5MG TAB TAKE ONE TABLET BY MOUTH ONCE A DAY SWALLOW WHOLE, DO NOT CRUSH, SPLIT, OR CHEW. ORAL DISCONT INUED 08/20/2024 [id number] 4 CHRISTI TATO 2023 90 [facility] FISH OIL 1000MG (500MG DHA/EPA) CAP,ORAL TAKE 2 CAPSULES BY MOUTH TWICE A DAY WITH MEALS ORAL ACTIVE RADHA PINK 2023 [facility] FLUTICASONE PROPIONATE 50MCG/SPRAY SOLN,NASAL, 16GM INSTILL 1 SPRAY IN NOSTRIL( S) ONCE A DAY FOR ALLERGIE S (MUST BE USED DIRECTED FOR MINIMUM OF 21 DAYS TO PROVIDE ADEQUATE BENEFITS ) NASAL ACTIVE 09/18/2025 [id number] RADHA PINK 2024 3 [facility] FLUTICASONE PROPIONATE 50MCG/SPRAY SOLN,NASAL, 16GM INSTILL 1 SPRAY IN NOSTRIL( S) ONCE A DAY FOR ALLERGIE S (MUST BE USED DIRECTED FOR MINIMUM OF 21 DAYS TO PROVIDE ADEQUATE BENEFITS ) NASAL DISCONT INUED 08/20/2024 [id number] TATO BARRAZA 2023 3 [facility] FOLIC ACID 1MG TAB TAKE ONE TABLET BY MOUTH ONCE A DAY FOR FOLIC ACID SUPPLEME NTATION ORAL ACTIVE 06/08/2025 [id number] 5 RADHA PINK 2023 100 [facility] FUROSEMIDE 40MG TAB TAKE ONE TABLET BY MOUTH EVERY MORNING FOR FLUID RETENTIO N (EDEMA) TAKE DAILY EXCEPT DIALYSIS DAYS ORAL DISCONT INUED (EDIT) 04/27/2025 [id number] 4 RADHA PINK 2023 90 [facility] FUROSEMIDE 80MG TAB TAKE ONE TABLET BY MOUTH EVERY MORNING AND EVENING ORAL ACTIVE 01/05/2026 [id number] 5 RUBY ALEXANDER 2024 180 [place] [facility] FUROSEMIDE 80MG TAB TAKE ONE TABLET BY MOUTH TWICE A DAY FOR FLUID RETENTIO N (EDEMA) TAKE DAILY EXCEPT DIALYSIS DAYS ONLY ON NONDIALY SIS DAYS (FRIDAY, , FRIDAY, FRIDAY ORAL DISCONT INUED BY GLORIA R 04/27/2025 [id number] TATO BARRAZA 2023 180 [facility] INSULIN REG HUMAN 100 U/ML INJ NOVOLIN R INJECT 15 UNITS UNDER THE SKIN THREE TIMES A DAY BEFORE MEALS FOR DIABETES ADMINIST ER 30 MINUTES BEFORE FOOD DIRECTED . DISCARD 30 DAYS AFTER OPENING. SUBCUT ANEOUS ACTIVE 09/18/2025 [id number] RADHA PINK 2024 5 [facility] INSULIN REG HUMAN 100 U/ML INJ NOVOLIN R INJECT 10 UNITS UNDER THE SKIN EVERY MORNING BEFORE A MEAL FOR DIABETES ADMINIST ER 30 MINUTES BEFORE FOOD DIRECTED . DISCARD 30 DAYS AFTER OPENING. PER SLIDING SCALE ADMINIST ER 30 MINUTES BEFORE FOOD DIRECTED . DISCARD 30 DAYS AFTER OPENING. PER SLIDING SCALE SUBCUT ANEOUS 04/25/2024 [id number] 4 RADHA PINK 2023 5 [facility] INSULIN,GLA RGINE,HUMAN 100 UNT/ML INJ INJECT 50 UNITS UNDER THE SKIN EVERY MORNING FOR DIABETES (AT SAME TIME EACH DAY) - (DISCARD ANY UNUSED PORTION 28 DAYS AFTER OPENING) ### SUBCUT ANEOUS ACTIVE 09/18/2025 [id number] 5 RADHA PINK W 2024 5 [facility] INSULIN,GLA RGINE,HUMAN 100 UNT/ML INJ INJECT 10 UNITS UNDER THE SKIN EVERY MORNING FOR DIABETES (AT SAME TIME EACH DAY) - (DISCARD ANY UNUSED PORTION 28 DAYS AFTER OPENING) SUBCUT ANEOUS DISCONT INUED (EDIT) 09/09/2025 [id number] RADHA PINK Liam 2024 5 [facility] INSULIN,GLA RGINE,HUMAN 100 UNT/ML INJ INJECT 40 UNITS UNDER THE SKIN EVERY MORNING FOR DIABETES (AT SAME TIME EACH DAY) - (DISCARD ANY UNUSED PORTION 28 DAYS AFTER OPENING) SUBCUT ANEOUS DISCONT INUED (EDIT) 04/27/2025 [id number] 4 TATO BARRAZA 2023 5 [facility] INSULIN,GLA RGINE-YFGN 100UNIT/ML INJ INJECT 35 UNITS UNDER THE SKIN EVERY MORNING FOR DIABETES (AT SAME TIME EACH DAY) - (DISCARD ANY UNUSED PORTION 28 DAYS AFTER OPENING) SUBCUT ANEOUS 04/24/2024 [id number] 4 TATO BARRAZA 2022 6 [facility] ISOSORBIDE MONONITRATE 120MG TAB,SA TAKE ONE TABLET BY MOUTH ONCE A DAY TAKE ON EMPTY STOMACH. SWALLOW WHOLE. DO NOT CRUSH OR CHEW. ORAL DISCONT INUED (EDIT) 09/25/2024 [id number] 4 RAQUEL MARTINEZ 2023 90 [place] [facility] ISOSORBIDE MONONITRATE 30MG TAB,SA TAKE ONE TABLET BY MOUTH ONCE A DAY FOR CHEST PAIN TAKE ON EMPTY STOMACH. SWALLOW WHOLE. DO NOT CRUSH OR CHEW. ORAL ACTIVE 04/27/2025 [id number] 5 CHRISTI, TATO [address] [place] [address] [facility] LORATADINE 10MG TAB TAKE ONE TABLET BY MOUTH ONCE A DAY ON EMPTY STOMACH FOR ALLERGIE S ORAL DISCONT INUED 07/25/2024 [id number] CHRISTITATO [address] [place] [address] [facility] LORATADINE 10MG TAB TAKE ONE TABLET BY MOUTH ONCE A DAY ON EMPTY STOMACH FOR ALLERGIE S ORAL DISCONT INUED 05/25/2024 [id number] 4 CHRISTITATO [address] [place] [address] [facility] LORATADINE 10MG TAB TAKE ONE TABLET BY MOUTH ONCE A DAY ON EMPTY STOMACH FOR ALLERGIE S ORAL DISCONT INUED 02/06/2024 [id number] 4 CHRISTITATO [address] [place] [address] [facility] LORATADINE 10MG TAB TAKE ONE TABLET BY MOUTH ONCE A DAY ON EMPTY STOMACH FOR ALLERGIE S ORAL 12/08/2024 [id number] TATO BARRAZA [address] [place] [address] [facility] MAGNESIUM OXIDE 400MG TAB TAKE ONE TABLET BY MOUTH ONCE A DAY FOR DIETARY MAGNESIU M SUPPLEME NTATION ORAL 04/07/2024 [id number] JENY GAMA 2022 120 [place] [facility] METOPROLOL TARTRATE 25MG TAB TAKE ONE TABLET BY MOUTH TWICE A DAY TAKE WITH OR IMMEDIAT JACKI FOLLOWIN G FOOD. ORAL DISCONT INUED BY PROVIDE R 11/13/2024 [id number] 4 Sharon EL USSAPEDRO PABLO 2023 180 [place] [facility] NIFEDIPINE (EQV-CC) 60MG TAB,SA TAKE ONE TABLET BY MOUTH ONCE A DAY FOR HIGH BLOOD PRESSURE PREFERAB LE TO TAKE ON EMPTY STOMACH. SWALLOW WHOLE; DO NOT CRUSH OR CHEW. AVOIDGRA PEFRUIT JUICE. ORAL 08/20/2024 [id number] 4 TATO BARRAZA [address] [place] [address] [facility] NITROGLYCER IN 0.4MG TAB,SUBLING UAL DISSOLVE ONE TABLET UNDER THE TONGUE ONE-TIME FOR CHEST PAIN NEEDED; IF NO IMPROVEM ENT AFTER FIRST DOSE CALL 9-1-1. MAY TAKE 2 ADDITION AL DOSES, 5 MINUTES APART SUBLIN GUAL ACTIVE 04/20/2025 [id number] 5 CHRISTI TATO 2023 100 [facility] OLANZAPINE 10MG TAB TAKE ONE-HALF TABLET BY MOUTH AT BEDTIME NEEDED FOR ANXIETY ORAL ACTIVE 04/27/2025 [id number] 4 CHRISTI, TATO 2023 90 [facility] PANTOPRAZOL E NA 40MG TAB,EC TAKE ONE TABLET BY MOUTH EVERY MORNING BEFORE A MEAL FOR GASTROES OPHAGEAL REFLUX DISEASE TAKE 30 MINUTES BEFORE MEAL(S) ORAL ACTIVE 12/23/2025 [id number] 5 CHRISTI, TATO 2024 90 [facility] PIRTOBRUTIN IB 50MG TAB TAKE ONE TABLET BY MOUTH ONCE A DAY ORAL ACTIVE 01/11/2026 [id number] 5 JOSE M WALTON 2024 30 [place] [facility] SEVELAMER CARBONATE 800MG TAB TAKE ONE TABLET BY MOUTH THREE TIMES A DAY WITH MEAL(S) TAKE WITH FOOD. ORAL ACTIVE 04/24/2025 [id number] 5 TREVER MCRAE 2023 90 [place] [facility] SODIUM ZIRCONIUM CYCLOSILICA TE 10GM/PKT PWDR,RENST- ORAL MIX AND DRINK 10GM/PKT BY MOUTH EVERY OTHER DAY FOR 90 DAYS FOR HIGH POTASSIU M DISSOLVE IN WATER ORAL DISCONT INUED BY PROVIDE R 06/30/2024 [id number] 4 Antonio JOHNSON 2023 30 [place] [facility] TAMSULOSIN HCL 0.4MG CAP TAKE TWO CAPSULES BY MOUTH EVERY EVENING APPROXIM ATELY 30 MINUTES AFTER THE SAME MEAL EACH DAY (FOR PROSTATE ) ORAL ACTIVE 03/20/2025 [id number] 5 RADHA PINK 2023 180 [facility] TAMSULOSIN HCL 0.4MG CAP TAKE TWO CAPSULES BY MOUTH EVERY EVENING APPROXIM ATELY 30 MINUTES AFTER THE SAME MEAL EACH DAY (FOR PROSTATE ) ORAL DISCONT INUED 04/07/2024 [id number] JENY GAMA 2022 180 [place] [facility] TORSEMIDE 100MG TAB TAKE ONE TABLET BY MOUTH DIRECTED ON NON-DIAL YSIS DAYS (FRIDAY, , FRIDAY, AND FRIDAY) ORAL HOLD 09/14/2025 [id number] 5 TREVER MCRAE BRO 2024 52 [place] [facility] Allergies, Adverse Reactions, Alerts Combined list of allergies from Department of [facility] and Veterans Affairs facilities. It does not include entries that were removed or entered in error. Substance Category Reaction Severity Reaction type Status Date Reported Comments Source ALLOPURINOL Propensity to adverse reactions to drug (finding) Eruption active 8 [facility] CONTRAST MEDIA Propensity to adverse reactions to drug (finding) Eruption active 3 [facility] FLOMAX Propensity to adverse reactions to drug (finding) Chill, Finding of vomiting, Diarrhea, Weakness present active 8 [facility] METFORMIN Propensity to adverse reactions to drug (finding) NAUSEA,VO MITING active 3 [facility] Immunizations Combined list of available immunizations from the Department of [facility] and [facility] Affairs facilities. Immunization Series Date Given Administered By Site Reaction Lot Number CVX Code Drug Weed Control Inspector Status Comments Source PNEUMOCOCCAL POLYSACCHARID E PPV23 2020 33 complet ed [facility] ZOSTER RECOMBINANT 2 2020 187 complet [facility] ZOSTER RECOMBINANT 1 2020 187 complet ed [facility] PNEUMOCOCCAL CONJUGATE PCV 13 2020 133 complet [facility] TDAP 2020 115 complet [facility] COVID-19 (PFIZER), MRNA, LNP-S, PF, 30 MCG/0.3 ML DOSE 2 2020 208 complet ed [facility] COVID-19 (PFIZER), MRNA, LNP-S, PF, 30 MCG/0.3 ML DOSE 1 2020 208 complet ed [facility] COVID-19 (PFIZER), MRNA, LNP-S, PF, 30 MCG/0.3 ML DOSE 1 2020 208 complet ed HISTORICA L INFORMATI ON - FROM OTHER REGISTRY, [facility] PNEUMOCOCCAL CONJUGATE PCV 13 1 2015 133 complet ed HISTORICA L INFORMATI ON - FROM OTHER REGISTRY, [facility] INFLUENZA, UNSPECIFIED FORMULATION 2013 88 complet ed [facility] INFLUENZA, UNSPECIFIED FORMULATION 2011 88 complet ed [facility] TD(ADULT) UNSPECIFIED FORMULATION 2004 139 complet ed [facility] INFLUENZA (HISTORICAL) 2003 88 complet ed [facility] INFLUENZA, UNSPECIFIED FORMULATION 2002 88 complet ed [facility] Results Combined list of recent [...] 10:52 AM Reporting Lab: [place] [facility] [address] [place] [address] Performin g Lab: [place] [facility] [address] [place] [address] [facility] TSH (MA-PB) THYROTROPIN [UNITS/VOLU ME] IN SERUM OR PLASMA 4.243 u[IU]/mL 0.47 - 5 12/01 Specimen Type: SERUM No comment entered. Ordering Provider: TATO BARRAZA Report Released Date/Time : Dec 09, 2023 10:52 AM Reporting Lab: [place] [facility] [address] [place] [address] Performin g Lab: [place] [facility] [address] [place] [address] [facility] URINE ALBUMIN PROFILE-ih (PB) ALBUMIN [MASS/VOLUM E] IN URINE 417.30 mg/L 12/01 Specimen Type: URINE No comment entered. Ordering Provider: TATO BARRAZA Report Released Date/Time : Dec 09, 2023 10:52 AM Reporting Lab: [place] [facility] [address] [place] [address] Performin g Lab: [place] [facility] [address] [place] [address] [facility] URINE ALBUMIN PROFILE-ih (PB) ALBUMIN/CRE ATININE [MASS RATIO] IN URINE 346.62 mg/g 0 - 30 12/01 H Specimen Type: URINE No comment entered. Ordering Provider: TATO BARRAZA Report Released Date/Time : Dec 09, 2023 10:52 AM Reporting Lab: [place] [facility] [address] [place] [address] Performin g Lab: [place] [facility] [address] [place] [address] [facility] URINE ALBUMIN PROFILE-ih (PB) CREATININE [MASS/VOLUM E] IN URINE 120.39 mg/dL 12/01 Specimen Type: URINE No comment entered. Ordering Provider: TATO BARRAZA Report Released Date/Time : Dec 09, 2023 10:52 AM Reporting Lab: [place] [facility] [address] [place] [address] Performin g Lab: [place] [facility] [address] [place] [address] [facility] CHOLESTERO L PANEL (PB) CHOLESTEROL [MASS/VOLUM E] IN SERUM OR PLASMA 84 mg/dL 0 - 200 12/01 Specimen Type: PLASMA No comment entered. Ordering Provider: TATO BARRAZA Report Released Date/Time : Dec 09, 2023 10:52 AM Reporting Lab: [place] [facility] [address] [place] [address] Performin g Lab: [place] [facility] [address] [place] [address] [facility] CHOLESTERO L PANEL (PB) TRIGLYCERID E [MASS/VOLUM E] IN SERUM OR PLASMA 103 mg/dL 0 - 150 12/01 Specimen Type: PLASMA No comment entered. Ordering Provider: TATO BARRAZA Report Released Date/Time : Dec 09, 2023 10:52 AM Reporting Lab: [place] [facility] [address] [place] [address] Performin g Lab: [place] [facility] [address] [place] [address] [facility] CHOLESTERO L PANEL (PB) CHOLESTEROL IN LDL [MASS/VOLUM E] IN SERUM OR PLASMA BY CALCULATION 27.9 mg/dL 12/01 Specimen Type: PLASMA No comment entered. Ordering Provider: TATO BARRAZA Report Released Date/Time : Dec 09, 2023 10:52 AM Reporting Lab: [place] [facility] [address] [place] [address] Performin g Lab: [place] [facility] [address] [place] [address] [facility] CHOLESTERO L PANEL (PB) CHOLESTEROL IN HDL [MASS/VOLUM E] IN SERUM OR PLASMA 35.5 mg/dL 40 12/01 L Specimen Type: PLASMA No comment entered. Ordering Provider: TATO BARRAZA Report Released Date/Time : Dec 09, 2023 10:52 AM Reporting Lab: [place] [facility] [address] [place] [address] Performin g Lab: [place] [facility] [address] [place] [address] [facility] CHOLESTERO L PANEL (PB) CHOLESTEROL IN HDL/CHOLEST ZULEYKA.TOTAL [MASS RATIO] IN SERUM OR PLASMA 42.3 25 12/01 Specimen Type: PLASMA No comment entered. Ordering Provider: TATO BARRAZA Report Released Date/Time : Dec 09, 2023 10:52 AM Reporting Lab: [place] [facility] [address] [place] [address] Performin g Lab: [place] [facility] [address] [place] [address] [facility] COMPREHENS ERNST METABOLIC PANEL CREATININE [MASS/VOLUM E] IN SERUM OR PLASMA 3.11 mg/dL 0.7 - 1.3 12/01 H Specimen Type: PLASMA No comment entered. Ordering Provider: TATO BARRAZA Report Released Date/Time : Dec 09, 2023 10:52 AM Reporting Lab: [place] [facility] [address] [place] [address] Performin g Lab: [place] [facility] [address] [place] [address] [facility] COMPREHENS ERNST METABOLIC PANEL UREA NITROGEN [MASS/VOLUM E] IN SERUM OR PLASMA 24 mg/dL 9 - 25 12/01 Specimen Type: PLASMA No comment entered. Ordering Provider: TATO BARRAZA Report Released Date/Time : Dec 09, 2023 10:52 AM Reporting Lab: [place] [facility] [address] [place] [address] Performin g Lab: [place] [facility] [address] [place] [address] [facility] COMPREHENS ERNST METABOLIC PANEL GLUCOSE [MASS/VOLUM E] IN SERUM OR PLASMA 212 mg/dL 72 - 99 12/01 H Specimen Type: PLASMA No comment entered. Ordering Provider: TATO BARRAZA Report Released Date/Time : Dec 09, 2023 10:52 AM Reporting Lab: [place] [facility] [address] [place] [address] Performin g Lab: [place] [facility] [address] [place] [address] [facility] COMPREHENS ERNST METABOLIC PANEL SODIUM [MOLES/VOLU ME] IN SERUM OR PLASMA 137 meq/L 136 - 145 12/01 Specimen Type: PLASMA No comment entered. Ordering Provider: TATO BARRAZA Report Released Date/Time : Dec 09, 2023 10:52 AM Reporting Lab: [place] [facility] [address] [place] [address] Performin g Lab: [place] [facility] [address] [place] [address] [facility] COMPREHENS ERNST METABOLIC PANEL POTASSIUM [MOLES/VOLU ME] IN SERUM OR PLASMA 4.6 meq/L 3.5 - 5 12/01 Specimen Type: PLASMA No comment entered. Ordering Provider: TATO BARRAZA Report Released Date/Time : Dec 09, 2023 10:52 AM Reporting Lab: [place] [facility] [facility] [address] [place] [address] Performin g Lab: [place] [facility] [address] [place] [address] 8 [facility] COMPREHENS ERNST METABOLIC PANEL CHLORIDE [MOLES/VOLU ME] IN SERUM OR PLASMA 100 meq/L 98 - 107 12/01 Specimen Type: PLASMA No comment entered. Ordering Provider: TATO BARRAZA Report Released Date/Time : Dec 09, 2023 10:52 AM Reporting Lab: [place] [facility] [address] [place] [address] 8 Performin g [facility]: [place] [facility] [address] [place] [address] 8 [facility] COMPREHENS ERNST METABOLIC PANEL CARBON DIOXIDE, TOTAL [MOLES/VOLU ME] IN SERUM OR PLASMA 27 meq/L 22 - 31 12/01 Specimen Type: PLASMA No comment entered. Ordering Provider: TATO BARRAZA Report Released Date/Time : Dec 09, 2023 10:52 AM Reporting Lab: [place] [facility] [address] [place] [address] 8 Performin g [facility]: [place] [facility] [address] [place] [address] 8 [facility] COMPREHENS ERNST METABOLIC PANEL CALCIUM [MASS/VOLUM E] IN SERUM OR PLASMA 8.9 mg/dL 8.4 - 10.4 12/01 Specimen Type: PLASMA No comment entered. Ordering Provider: TATO BARRAZA Report Released Date/Time : Dec 09, 2023 10:52 AM Reporting Lab: [place] [facility] [address] [place] [address] 8 Performin g [facility]: [place] [facility] [address] [place] [address] 8 [facility] COMPREHENS ERNST METABOLIC PANEL PROTEIN [MASS/VOLUM E] IN SERUM OR PLASMA 6.1 g/dL 6 - 8.6 12/01 Specimen Type: PLASMA No comment entered. Ordering Provider: TATO BARRAZA Report Released Date/Time : Dec 09, 2023 10:52 AM Reporting Lab: [place] [facility] [address] [place] [address] 8 [facility]formin g [facility]: [place] [facility] [address] [place] [address] 8 [facility] COMPREHENS ERNST METABOLIC PANEL ALBUMIN [MASS/VOLUM E] IN SERUM OR PLASMA 4.1 g/dL 3.4 - 5 12/01 Specimen Type: PLASMA No comment entered. Ordering Provider: TATO BARRAZA Report Released Date/Time : Dec 09, 2023 10:52 AM Reporting Lab: [place] [facility] [address] [place] [address] 8 Performin g Lab: [place] [facility] [address] [place] [address] 8 [facility] COMPREHENS ERNST METABOLIC PANEL BILIRUBIN.T OTAL [MASS/VOLUM E] IN SERUM OR PLASMA 1.2 mg/dL 0.2 - 1.2 12/01 Specimen Type: PLASMA No comment entered. Ordering Provider: TATO BARRAZA Report Released Date/Time : Dec 09, 2023 10:52 AM Reporting Lab: [place] [facility] [address] [place] [address] 8 Performin g [facility]: [place] [facility] [address] [place] [address] 8 [facility] COMPREHENS ERNST METABOLIC PANEL ALKALINE PHOSPHATASE [ENZYMATIC ACTIVITY/VO LUME] IN SERUM OR PLASMA 105 U/L 40 - 150 12/01 Specimen Type: PLASMA No comment entered. Ordering Provider: TATO BARRAZA Report Released Date/Time : Dec 09, 2023 10:52 AM Reporting Lab: [place] [facility] [address] [place] [address] 8 Performin g Lab: [place] [facility] [address] [place] [address] 8 [facility] COMPREHENS ERNST METABOLIC PANEL ASPARTATE AMINOTRANSF ERASE [ENZYMATIC ACTIVITY/VO LUME] IN SERUM OR PLASMA 10 U/L 5 - 34 12/01 Specimen Type: PLASMA No comment entered. Ordering Provider: TATO BARRAZA Report Released Date/Time : Dec 09, 2023 10:52 AM Reporting Lab: [place] [facility] [address] [place] [address] 8 Performin g Lab: [place] [facility] [address] [place] [address] 8 [facility] COMPREHENS ERNST METABOLIC PANEL ALANINE AMINOTRANSF ERASE [ENZYMATIC ACTIVITY/VO LUME] IN SERUM OR PLASMA <7U/L 8 - 40 12/01 L Specimen Type: PLASMA No comment entered. Ordering Provider: TATO BARRAZA Report Released Date/Time : Dec 09, 2023 10:52 AM Reporting Lab: [place] [facility] [address] [place] [address] 8 Performin g Lab: [place] [facility] [address] [place] [address] 8 [facility] COMPREHENS ERNST METABOLIC PANEL GLOMERULAR FILTRATION RATE/1.73 SQ M.PREDICTED [VOLUME RATE/AREA] IN SERUM, PLASMA OR BLOOD BY CREATININE- BASED FORMULA ([id number] 2020) 19 12/01 Specimen Type: PLASMA No comment entered. Ordering Provider: TATO BARRAZA Report Released Date/Time : Dec 09, 2023 10:52 AM Reporting Lab: [place] [facility] [address] [place] [address] 8 Performin g Lab: [place] [facility] [address] [place] [address] 8 [facility] CBC LEUKOCYTES [#/VOLUME] IN BLOOD BY AUTOMATED COUNT 59.9 10*3/uL 3.6 - 11.2 12/01 H Specimen Type: BLOOD No comment entered. Ordering Provider: TATO BARRAZA Report Released Date/Time : Dec 09, 2023 10:52 AM Reporting Lab: [place] [facility] [address] [place] [address] 8 Performin g Lab: [place] [facility] [address] [place] [address] 8 [facility] CBC ERYTHROCYTE S [#/VOLUME] IN BLOOD BY AUTOMATED COUNT 3.15 10*6/uL 4.10 - 5.70 12/01 L Specimen Type: BLOOD No comment entered. Ordering Provider: TATO BARRAZA Report Released Date/Time : Dec 09, 2023 10:52 AM Reporting Lab: [place] [facility] [address] [place] [address] 8 Performin g Lab: [place] [facility] [address] [place] [address] 8 [facility] CBC HEMOGLOBIN [MASS/VOLUM E] IN BLOOD 9.6 g/dL 13.1 - 16.8 12/01 L Specimen Type: BLOOD No comment entered. Ordering Provider: TATO BARRAZA Report Released Date/Time : Dec 09, 2023 10:52 AM Reporting Lab: [place] [facility] [address] [place] [address] 8 Performin g Lab: [place] [facility] [address] [place] [address] 8 [facility] CBC HEMATOCRIT [VOLUME FRACTION] OF BLOOD 31.9 38.2 - 48.4 12/01 L Specimen Type: BLOOD No comment entered. Ordering Provider: TATO BARRAZA Report Released Date/Time : Dec 09, 2023 10:52 AM Reporting Lab: [place] [facility] [address] [place] [address] 8 Performin g Lab: [place] [facility] [address] [place] [address] 8 [facility] CBC MCV [ENTITIC VOLUME] BY AUTOMATED COUNT 101.3 fL 80.0 - 100.0 12/01 H Specimen Type: BLOOD No comment entered. Ordering Provider: TATO BARRAZA Report Released Date/Time : Dec 09, 2023 10:52 AM Reporting Lab: [place] [facility] [address] [place] [address] 8 Performin g Lab: [place] [facility] [address] [place] [address] 8 [facility] CBC MCH [ENTITIC MASS] BY AUTOMATED COUNT 30.5 pg 27.0 - 34.0 12/01 Specimen Type: BLOOD No comment entered. Ordering Provider: TATO BARRAZA Report Released Date/Time : Dec 09, 2023 10:52 AM Reporting Lab: [place] [facility] [address] [place] [address] 8 Performin g Lab: [place] [facility] [address] [place] [address] 8 [facility] CBC MCHC [MASS/VOLUM E] BY AUTOMATED COUNT 30.1 g/dL 33.0 - 36.0 12/01 L Specimen Type: BLOOD No comment entered. Ordering Provider: TATO BARRAZA Report Released Date/Time : Dec 09, 2023 10:52 AM Reporting Lab: [place] [facility] [address] [place] [address] 8 Performin g Lab: [place] [facility] [address] [place] [address] 8 [facility] CBC PLATELETS [#/VOLUME] IN BLOOD BY AUTOMATED COUNT 100 10*3/uL 150 - 400 12/01 L Specimen Type: BLOOD No comment entered. Ordering Provider: TATO BARRAZA Report Released Date/Time : Dec 09, 2023 10:52 AM Reporting Lab: [place] [facility] [address] [place] [address] 8 Performin g Lab: [place] [facility] [address] [place] [address] 8 [facility] CBC PLATELET MEAN VOLUME [ENTITIC VOLUME] IN BLOOD BY AUTOMATED COUNT 9.2 fL 7.5 - 11.2 12/01 Specimen Type: BLOOD No comment entered. Ordering Provider: TATO BARRAZA Report Released Date/Time : Dec 09, 2023 10:52 AM Reporting Lab: [place] [facility] [address] [place] [address] 8 Performin g Lab: [place] [facility] [address] [place] [address] 8 [facility] CBC SEGMENTED NEUTROPHILS /100 LEUKOCYTES IN BLOOD BY MANUAL COUNT 5 12/01 Specimen Type: BLOOD No comment entered. Ordering Provider: TATO BARRAZA Report Released Date/Time : Dec 09, 2023 10:52 AM Reporting Lab: [place] [facility] [address] [place] [address] 8 Performin g Lab: [place] [facility] [address] [place] [address] 8 [facility] CBC MONOCYTES/1 00 LEUKOCYTES IN BLOOD BY AUTOMATED COUNT 1 12/01 Specimen Type: BLOOD No comment entered. Ordering Provider: TATO BARRAZA Report Released Date/Time : Dec 09, 2023 10:52 AM Reporting Lab: [place] [facility] [address] [place] [address] 8 Performin g Lab: [place] [facility] [address] [place] [address] 8 [facility] CBC PLATELET ADEQUACY [PRESENCE] IN BLOOD BY LIGHT MICROSCOPY DECREASED 12/01 Specimen Type: BLOOD No comment entered. Ordering Provider: TATO BARRAZA Report Released Date/Time : Dec 09, 2023 10:52 AM Reporting Lab: [place] [facility] [address] [place] [address] 8 Performin g Lab: [place] [facility] [address] [place] [address] 8 [facility] CBC ANISOCYTOSI S [PRESENCE] IN BLOOD BY LIGHT MICROSCOPY 112/01 Specimen Type: BLOOD No comment entered. Ordering Provider: TATO BARRAZA Report Released Date/Time : Dec 09, 2023 10:52 AM Reporting Lab: [place] [facility] [address] [place] [address] 8 Performin g Lab: [place] [facility] [address] [place] [address] 8 [facility] CBC SMUDGE CELLS [PRESENCE] IN BLOOD BY LIGHT MICROSCOPY 1+ 12/01 Specimen Type: BLOOD No comment entered. Ordering Provider: TATO BARRAZA Report Released Date/Time : Dec 09, 2023 10:52 AM Reporting Lab: [place] [facility] [address] [place] [address] 8 Performin g Lab: [place] [facility] [address] [place] [address] 8 [facility] CBC ERYTHROCYTE DISTRIBUTIO N WIDTH [RATIO] BY AUTOMATED COUNT 18.4 11.8 - 15.1 12/01 H Specimen Type: BLOOD No comment entered. Ordering Provider: TATO BARRAZA Report Released Date/Time : Dec 09, 2023 10:52 AM Reporting Lab: [place] [facility] [address] [place] [address] 8 Performin g Lab: [place] [facility] [address] [place] [address] 8 [facility] CBC LYMPHOCYTES /100 LEUKOCYTES IN BLOOD BY MANUAL COUNT 70 12/01 Specimen Type: BLOOD No comment entered. Ordering Provider: TATO BARRAZA Report Released Date/Time : Dec 09, 2023 10:52 AM Reporting Lab: [place] [facility] [address] [place] [address] 8 Performin g Lab: [place] [facility] [address] [place] [address] 8 [facility] CBC LYMPHOCYTES /100 LEUKOCYTES IN BLOOD BY AUTOMATED COUNT 94.2 12/01 Specimen Type: BLOOD No comment entered. Ordering Provider: TATO BARRAZA Report Released Date/Time : Dec 09, 2023 10:52 AM Reporting Lab: [place] [facility] [address] [place] [address] 8 Performin g Lab: [place] [facility] [address] [place] [address] 8 [facility] CBC MONOCYTES/1 00 LEUKOCYTES IN BLOOD BY AUTOMATED COUNT 1.6 12/01 Specimen Type: BLOOD No comment entered. Ordering Provider: TATO BARRAZA Report Released Date/Time : Dec 09, 2023 10:52 AM Reporting Lab: [place] [facility] [address] [place] [address] 8 Performin g Lab: [place] [facility] [address] [place] [address] 8 [facility] CBC NEUTROPHILS /100 LEUKOCYTES IN BLOOD BY AUTOMATED COUNT 3.5 12/01 Specimen Type: BLOOD No comment entered. Ordering Provider: TATO BARRAZA Report Released Date/Time : Dec 09, 2023 10:52 AM Reporting Lab: [place] [facility] [address] [place] [address] 8 Performin g Lab: [place] [facility] [address] [place] [address] 8 [facility] CBC EOSINOPHILS /100 LEUKOCYTES IN BLOOD BY AUTOMATED COUNT 0.5 12/01 Specimen Type: BLOOD No comment entered. Ordering Provider: TATO BARRAZA Report Released Date/Time : Dec 09, 2023 10:52 AM Reporting Lab: [place] [facility] [address] [place] [address] 8 Performin g Lab: [place] [facility] [address] [place] [address] 8 [facility] CBC BASOPHILS/1 00 LEUKOCYTES IN BLOOD BY AUTOMATED COUNT 0.1 12/01 Specimen Type: BLOOD No comment entered. Ordering Provider: TATO BARRAZA Report Released Date/Time : Dec 09, 2023 10:52 AM Reporting Lab: [place] [facility] [address] [place] [address] 8 Performin g Lab: [place] [facility] [address] [place] [address] 8 [facility] CBC LYMPHOCYTES [#/VOLUME] IN BLOOD BY AUTOMATED COUNT 56.46 10*3/uL 0.77 - 4.50 12/01 H Specimen Type: BLOOD No comment entered. Ordering Provider: TATO BARRAZA Report Released Date/Time : Dec 09, 2023 10:52 AM Reporting Lab: [place] [facility] [address] [place] [address] 8 Performin g Lab: [place] [facility] [address] [place] [address] 8 [facility] CBC MONOCYTES [#/VOLUME] IN BLOOD BY AUTOMATED COUNT 0.97 10*3/uL 0.19 - 0.8 12/01 H Specimen Type: BLOOD No comment entered. Ordering Provider: TATO BARRAZA Report Released Date/Time : Dec 09, 2023 10:52 AM Reporting Lab: [place] [facility] [address] [place] [address] 8 Performin g Lab: [place] [facility] [address] [place] [address] 8 [facility] CBC NEUTROPHILS [#/VOLUME] IN BLOOD BY AUTOMATED COUNT 2.12 10*3/uL 2.10 - 8.00 12/01 Specimen Type: BLOOD No comment entered. Ordering Provider: TATO BARRAZA Report Released Date/Time : Dec 09, 2023 10:52 AM Reporting Lab: [place] [facility] [address] [place] [address] 8 Performin g Lab: [place] [facility] [address] [place] [address] 8 [facility] CBC EOSINOPHILS [#/VOLUME] IN BLOOD BY AUTOMATED COUNT 0.27 10*3/uL 0.00 - 0.60 12/01 Specimen Type: BLOOD No comment entered. Ordering Provider: TATO BARRAZA Report Released Date/Time : Dec 09, 2023 10:52 AM Reporting Lab: [place] [facility] [address] [place] [address] 8 Performin g Lab: [place] [facility] [address] [place] [address] 8 [facility] CBC BASOPHILS [#/VOLUME] IN BLOOD BY AUTOMATED COUNT 0.04 10*3/uL 0.00 - 0.20 12/01 Specimen Type: BLOOD No comment entered. Ordering Provider: TATO BARRAZA Report Released Date/Time : Dec 09, 2023 10:52 AM Reporting Lab: [place] [facility] [address] [place] [address] 8 Performin g Lab: [place] [facility] [address] [place] [address] 8 [place] CBC VARIANT LYMPHOCYTES /100 LEUKOCYTES IN BLOOD BY MANUAL COUNT 24 12/01 Specimen Type: BLOOD No comment entered. Ordering Provider: TATO BARRAZA Report Released Date/Time : Dec 09, 2023 10:52 AM Reporting Lab: [place] [facility] [address] [place] [address] 8 Performin g Lab: [place] [facility] [address] [place] [address] 8 [facility] CBC PLATELETS RETICULATED /100 PLATELETS IN BLOOD BY AUTOMATED COUNT 1.8 1.0 - 7.0 12/01 Specimen Type: BLOOD No comment entered. Ordering Provider: TATO BARRAZA Report Released Date/Time : Dec 09, 2023 10:52 AM Reporting Lab: [place] [facility] [address] [place] [address] 8 Performin g Lab: [place] [facility] [address] [place] [address] 8 [facility] CBC IMMATURE GRANULOCYTE S/100 LEUKOCYTES IN BLOOD BY AUTOMATED COUNT 0.1 12/01 Specimen Type: BLOOD No comment entered. Ordering Provider: TATO BARRAZA Report Released Date/Time : Dec 09, 2023 10:52 AM Reporting Lab: [place] [facility] [address] [place] [address] 8 Performin g Lab: [place] [facility] [address] [place] [address] 8 [facility] CBC IMMATURE GRANULOCYTE S [#/VOLUME] IN BLOOD BY AUTOMATED COUNT 0.07 10*3/uL 0.00 - 0.05 12/01 H Specimen Type: BLOOD No comment entered. Ordering Provider: TATO BARRAZA Report Released Date/Time : Dec 09, 2023 10:52 AM Reporting Lab: [place] [facility] [address] [place] [address] 8 Performin g Lab: [place] [facility] [address] [place] [address] 8 [facility] CBC MANUAL DIFFERENTIA L COMMENT [INTERPRETA TION] IN BLOOD NARRATIVE NO 12/01 Specimen Type: BLOOD No comment entered. Ordering Provider: TATO BARRAZA Report Released Date/Time : Dec 09, 2023 10:52 AM Reporting Lab: [place] [facility] [address] [place] [address] 8 Performin g Lab: [place] [facility] [address] [place] [address] 8 [facility] CBC MANUAL DIFFERENTIA L PERFORMED [PRESENCE] IN BLOOD 0.00 10*3/uL 0.00 12/01 Specimen Type: BLOOD No comment entered. Ordering Provider: TATO BARRAZA Report Released Date/Time : Dec 09, 2023 10:52 AM Reporting Lab: [place] [facility] [address] [place] [address] 8 Performin g Lab: [place] [facility] [address] [place] [address] 8 [facility] CBC MONOCYTES [#/VOLUME] IN BLOOD BY MANUAL COUNT 0.60 10*3/uL 0.19 - 0.8 12/01 Specimen Type: BLOOD No comment entered. Ordering Provider: TATO BARRAZA Report Released Date/Time : Dec 09, 2023 10:52 AM Reporting Lab: [place] [facility] [address] [place] [address] 8 Performin g Lab: [place] [facility] [address] [place] [address] 8 [facility] CBC LYMPHOCYTES [#/VOLUME] IN BLOOD BY MANUAL COUNT 41.93 10*3/uL 0.77 - 4.50 12/01 H Specimen Type: BLOOD No comment entered. Ordering Provider: TATO BARRAZA Report Released Date/Time : Dec 09, 2023 10:52 AM Reporting Lab: [place] [facility] [address] [place] [address] 8 Performin g Lab: [place] [facility] [address] [place] [address] 8 [facility] CBC NEUTROPHILS [#/VOLUME] IN BLOOD BY MANUAL COUNT 3.00 10*3/uL 2.10 - 8.00 12/01 Specimen Type: BLOOD No comment entered. Ordering Provider: TATO BARRAZA Report Released Date/Time : Dec 09, 2023 10:52 AM Reporting Lab: [place] [facility] [address] [place] [address] 8 [facility]formin g [facility]: [place] [facility] [address] [place] [address] 8 [facility] FERRITIN FERRITIN [MASS/VOLUM E] IN SERUM OR PLASMA 228 ng/mL 22 - 275 09/13 Specimen Type: SERUM No comment entered. Ordering Provider: RADHA PINK Report Released Date/Time : Jun 07, 2024 01:24 PM Reporting Lab: [place] [facility] [address] [place] [address] Performin g Lab: [place] [facility] [address] [place] [address] [facility] FOLATE (PB) FOLATE [MASS/VOLUM E] IN SERUM OR PLASMA >20.0ng/m L 7 - 20 09/13 H Specimen Type: SERUM No comment entered. Ordering Provider: RADHA PINK Report Released Date/Time : Jun 07, 2024 01:24 PM Reporting Lab: [place] [facility] [address] [place] [address] Performin g Lab: [place] [facility] [address] [place] [address] [facility] B12 COBALAMIN (VITAMIN B12) [MASS/VOLUM E] IN SERUM OR PLASMA 394 pg/mL 213 - 816 09/13 Specimen Type: SERUM No comment entered. Ordering Provider: RADHA PINK Report Released Date/Time : Jun 07, 2024 01:24 PM Reporting Lab: [place] [facility] [address] [place] [address] Performin g Lab: [place] [facility] [address] [place] [address] [facility] IRON/TIBC PROFILE IRON BINDING CAPACITY [MASS/VOLUM E] IN SERUM OR PLASMA 218 ug/dL 09/13 Specimen Type: PLASMA No comment entered. Ordering Provider: RADHA PINK Report Released Date/Time : Jun 07, 2024 01:24 PM Reporting Lab: [place] [facility] [address] [place] [address] Performin g Lab: [place] [facility] [address] [place] [address] [facility] IRON/TIBC PROFILE TRANSFERRIN [MASS/VOLUM E] IN SERUM OR PLASMA 174 mg/dL 163 - 344 09/13 Specimen Type: PLASMA No comment entered. Ordering Provider: RADHA PINK Report Released Date/Time : Jun 07, 2024 01:24 PM Reporting Lab: [place] [facility] [address] [place] [address] Performin g Lab: [place] [facility] [address] [place] [address] [facility] IRON/TIBC PROFILE IRON SATURATION [MASS FRACTION] IN SERUM OR PLASMA 33 20 - 50 09/13 Specimen Type: PLASMA No comment entered. Ordering Provider: RADHA PINK Report Released Date/Time : Jun 07, 2024 01:24 PM Reporting Lab: [place] [facility] [address] [place] [address] Performin g Lab: [place] [facility] [address] [place] [address] [facility] IRON/TIBC PROFILE IRON [MASS/VOLUM E] IN SERUM OR PLASMA 71 ug/dL 65 - 175 09/13 Specimen Type: PLASMA No comment entered. Ordering Provider: RADHA PINK Report Released Date/Time : Jun 07, 2024 01:24 PM Reporting Lab: [place] [facility] [address] [place] [address] Performin g Lab: [place] [facility] [address] [place] [address] [facility] Vital Signs Combined list of inpatient and outpatient Vital Signs from Department of Defense and Veterans Affairs, ranging from 12 months to all on record, depending upon the facility. Vital Sign Value Date Comments Source SYSTOLIC BLOOD PRESSURE 101 12/22/2024 10:59:00 [facility] DIASTOLIC BLOOD PRESSURE 46 12/22/2024 10:59:00 [place] [facility] PULSE OXIMETRY 94 % 12/22/2024 10:59:00 [place] [facility] WEIGHT 230.5 12/22/2024 10:59:00 [place] [facility] BMI 32 kg/m2 12/22/2024 10:59:00 [place] [facility] PAIN 0 12/22/2024 10:59:00 [place] [facility] PULSE 74 12/22/2024 10:59:00 [place] [facility] RESPIRATION 18 12/22/2024 10:59:00 [place] [facility] SYSTOLIC BLOOD PRESSURE 119 08/25/2024 11:23:00 [place] [facility] DIASTOLIC BLOOD PRESSURE 66 08/25/2024 11:23:00 [place] [facility] PULSE OXIMETRY 93 08/25/2024 11:23:00 [place] [facility] WEIGHT 226.9 08/25/2024 11:23:00 [facility] [place] [facility] BMI 32 kg/m2 08/25/2024 11:23:00 [place] [facility] HEIGHT 71.0 08/25/2024 11:23:00 [place] [facility] PULSE 84 08/25/2024 11:23:00 [place] [facility] RESPIRATION 18 08/25/2024 11:23:00 [facility] [place] [facility] SYSTOLIC BLOOD PRESSURE 129 04/26/2024 15:00:00 [place] [facility] DIASTOLIC BLOOD PRESSURE 65 04/26/2024 15:00:00 [facility] [place] [facility] PULSE OXIMETRY 95 04/26/2024 15:00:00 [place] [facility] WEIGHT 231.4 04/26/2024 15:00:00 [facility] [place] [facility] BMI 32 kg/m2 04/26/2024 15:00:00 [place] [facility] PAIN 0 04/26/2024 15:00:00 [facility] [place] [place] [facility] TEMPERATURE 97.8 04/26/2024 15:00:00 [facility] [place] [place] [facility] PULSE 68 04/26/2024 15:00:00 [facility] [place] [place] [facility] RESPIRATION 18 04/26/2024 15:00:00 [place] [facility] Encounters Combined list of: 1) Encounters from Department of Veterans Affairs facilities going backup to the last 18 months, not all [place] inpatient encounters are included; 2) Encounters from the Department of Defense facilities going backup to 280 months. Location Location Details Encounter Type Encounter Number Reason For Visit Attending Provider ADM Date DC Date Status Disposition Source [place] [facility] Outpatient Encounter [id number] TERESA MANRIQUE N 08/20 [place] [facility] [place] [facility] Outpatient Encounter [id number] 09/07 [place] [facility] [place] [facility] Outpatient Encounter [id number] 10/05 [place] [facility] OFFICE O/P EST MOD 30 MIN [id number] Diagnos is: ICD-10- CM R10.9 Unspeci fied abdomin al pain Walter BARRAZA 10/07 [facility] HC PRO PHONE CALL 5-10 MIN [id number] Diagnos is: ICD-10- CM R93.89 Abnorma l finding s on dx imaging of oth body structu res ANGELAL GUSTAFSON R 10/08 [facility] Outpatient Encounter [id number] 10/08 [facility] MTMS BY PHARM ADDL 15 MIN [id number] Diagnos is: ICD-10- CM 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 diabete s mellitu s with unspeci fied complic ations Nupur PINK W 10/09 [facility] OFF/OP EST OCTOBER X REQ PHY/QHP [id number] Diagnos is: ICD-10- CM 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 ANDREA DANIELS 10/09 [facility] Outpatient Encounter [id number] GINA SANTOS 10/09 [facility] HC PRO PHONE CALL 5-10 MIN [id number] Diagnos is: ICD-10- CM 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 ANGELLA Palm 10/16 [facility] Outpatient Encounter [id number] 10/21 [facility] Outpatient Encounter [id number] 10/21 [facility] Outpatient Encounter [id number] [id number] 11/05 [facility] [place] [facility] Outpatient Encounter [id number] [id number] 11/11 [place] [facility] Outpatient Encounter [id number] 11/12 [facility] Outpatient Encounter [id number] 11/19 [facility] [facility] Outpatient Encounter [id number] PRAVEENA BREWER 11/23 [place] [facility] Encounter [id number] [id number] 11/25 [facility] Outpatient Encounter [id number] 11/26 [facility] Outpatient Encounter [id number] 12/04 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 Walter BARRAZA 12/08 [facility] FUNDUS PHOTOGRAPH Y W/I&R [id number] [id number] Diagnos is: ICD-10- CM Z13.5 Encount er for screeni ng for eye and ear disorde MAGDALENO Perez 12/08 [facility] MTMS BY PHARM ADDL 15 MIN [id number] Diagnos is: ICD-10- CM 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 diabete s mellitu s with unspeci fied complic ations Nupur PINK W 12/08 [facility] [place] [facility] IMG RTA DETC/MNTR DS PHY/QHP [id number] [id number] Diagnos is: ICD-10- CM Z13.9 Encount er for screeni ng, unspeci fied JACKYMIGUEL LA S 12/08 [place] [facility] TELEHEALTH FACILITY FEE [id number] [id number] Diagnos is: ICD-10- CM H90.3 Sensori neural hearing loss, MILAD Saldivar A 12/14 [facility] [place] [facility] HEARING AID REPAIR/MOD IFYING [id number] [id number] Diagnos is: ICD-10- CM H90.3 Sensori neural hearing loss, MILAD Saldivar A 12/14 [place] [facility] Outpatient Encounter [id number] [id number] 12/21 [facility] Outpatient Encounter [id number] 12/21 [facility] Outpatient Encounter [id number] [id number] 12/21 [facility] Outpatient Encounter [id number] [id number] JASON MUNSON A 12/22 [facility] Outpatient Encounter [id number] [id number] 12/22 [facility] Outpatient Encounter [id number] [id number] 01/07 [facility] Outpatient Encounter [id number] [id number] 01/07 [facility] Outpatient Encounter [id number] [id number] 01/07 [facility] CB TELEHEALTH FACILITY FEE [id number] [id number] Diagnos is: ICD-10- CM Z46.1 Encount er for fitting and adjustm ent of hearing aid MILAD CHOUDHURY A 01/13 [facility] HEARING AID CHECK BOTH EARS [id number] [id number] Diagnos is: ICD-10- CM Z46.1 Encount er for fitting and adjustm ent of hearing aid MILAD CHOUDUHRY A 01/13 [facility] HC PRO PHONE CALL 5-10 MIN [id number] [id number] Diagnos is: ICD-10- CM R93.89 Abnorma l finding s on dx imaging of oth body structu res ANGELLA GUSTAFSON R 01/18 [facility] Outpatient Encounter [id number] [id number] LOUISE LOVING T 01/19 [facility] Outpatient Encounter [id number] [id number] 02/05 [facility] Outpatient Encounter [id number] [id number] 02/08 [facility] Outpatient Encounter [id number] [id number] 02/16 [facility] [place] [facility] Outpatient Encounter [id number] [id number] 02/16 [place] [facility] [place] [facility] Outpatient Encounter [id number] [id number] 02/17 [place] [facility] Outpatient Encounter [id number] [id number] 02/23 [facility] Outpatient Encounter [id number] [id number] 02/24 [facility] [place] [facility] Outpatient Encounter [id number] [id number] 02/24 [place] [facility] Outpatient Encounter [id number] [id number] 03/04 [facility] N [facility] Outpatient Encounter [id number] [id number] 03/17 [facility] [place] [facility] Outpatient Encounter [id number] [id number] 03/19 [place] [facility] MTMS BY PHARM ADDL 15 MIN [id number] Diagnos is: ICD-10- CM E78.5 Hyperli pidemia , unspeci fied Nupur PINK W 03/19 [facility] Outpatient Encounter [id number] [id number] 03/23 [facility] Outpatient Encounter [id number] [id number] TREVER LIRIANO N 03/28 [facility] Outpatient Encounter [id number] [id number] 03/31 [facility] N [place] [facility] Outpatient Encounter [id number] [id number] 03/31 [place] [facility] Outpatient Encounter [id number] GLORIA CONSTANTINO 04/06 [place] [facility] [place] [facility] Outpatient Encounter [id number] [id number] 04/08 [place] [facility] Outpatient Encounter [id number] [id number] 04/08 [facility] Outpatient Encounter [id number] [id number] 04/08 [facility] [place] [facility] Outpatient Encounter [id number] [id number] 04/12 [place] [facility] [place] [facility] Outpatient Encounter [id number] [id number] 04/19 [place] [facility] Outpatient Encounter [id number] 04/23 [facility] MTMS BY PHARM ADDL 15 MIN [id number] Diagnos is: ICD-10- CM E78.5 Hyperli pidemia , unspeci fied Nupur PINK W 04/26 [facility] OFFICE O/P EST MOD 30 MIN [id number] Diagnos is: ICD-10- CM I50.9 Heart failure , unspeci fied Walter BARRAZA 04/26 [facility] Outpatient Encounter [id number] 05/26 [place] [facility] Outpatient Encounter [id number] [id number] 06/04 [facility] MTMS BY PHARM ADDL 15 MIN [id number] Diagnos is: ICD-10- CM 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 diabete s mellitu s with unspeci fied complic ations Nupur PINK W 06/07 [facility] Outpatient Encounter [id number] 06/07 [facility] Outpatient Encounter [id number] [id number] 06/08 [facility] Outpatient Encounter [id number] BARRETT RUSH RIL L 07/05 [facility] Outpatient Encounter [id number] [id number] 07/07 [facility] PH1 ASSMT&MGMT NQHP 5-10 [id number] Diagnos is: ICD-10- CM R09.81 Nasal congest ANGELLA Perez R 07/13 [facility] [place] [facility] Outpatient Encounter [id number] 08/11 [place] [facility] Outpatient Encounter [id number] [id number] 08/12 [facility] [place] [facility] Outpatient Encounter [id number] Beverly CASTRO A 08/16 [place] [facility] OFFICE O/P EST MOD 30 MIN [id number] Diagnos is: ICD-10- CM 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 diabete s mellitu s with unspeci fied complic ations Walter BARRAZA 08/25 [facility] Outpatient Encounter [id number] 08/25 [facility] Outpatient Encounter [id number] [id number] 09/08 [facility] N [place] [facility] Outpatient Encounter [id number] [id number] 09/08 [place] [facility] Outpatient Encounter [id number] 09/13 [facility] Outpatient Encounter [id number] 09/16 [facility] MTMS BY PHARM ADDL 15 MIN [id number] Diagnos is: ICD-10- CM 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 Nupur PINK W 09/17 [facility] Outpatient Encounter [id number] [id number] 09/22 [facility] Outpatient Encounter [id number] [id number] 09/28 [facility] Encounter [id number] [id number] 10/06 [facility] Outpatient Encounter [id number] [id number] 10/13 [facility] Outpatient Encounter [id number] [id number] 10/22 [facility] Outpatient Encounter [id number] [id number] 10/25 [facility] N [facility] Outpatient Encounter [id number] 10/26 [facility] TELEHEALTH FACILITY FEE [id number] [id number] Diagnos is: ICD-10- CM Z46.1 Encount er for fitting and adjustm ent of hearing aid MILAD CHOUDHURY Valentin 10/27 [facility] HEARING AID REPAIR/MOD IFYING [id number] [id number] Diagnos is: ICD-10- CM Z46.1 Encount er for fitting and adjustm ent of hearing aid MILAD CHOUDHURY JEAN CARLOS A 10/27 [facility] Outpatient Encounter [id number] [id number] 11/04 [facility] Outpatient Encounter [id number] [id number] 11/12 [facility] Outpatient Encounter [id number] [id number] 11/23 [facility] N [facility] Outpatient Encounter [id number] [id number] 12/[address] [facility] Outpatient Encounter [id number] [id number] LUISITO HARDEN 12/06 [facility] Outpatient Encounter [id number] [id number] GLORIA CONSTANTINO 12/[address] [facility] Outpatient Encounter [id number] [id number] 12/08 [facility] Outpatient Encounter [id number] [id number] 12[facility]11 [facility] Outpatient Encounter [id number] 12/11 [place] [facility] [place] [facility] Outpatient Encounter [id number] [id number] 12/15 [place] [facility] Outpatient Encounter [id number] [id number] BARRETT RUSH 12/20 [facility] Outpatient Encounter [id number] [id number] 12/22 [facility] OFFICE O/P EST MOD 30 MIN [id number] Diagnos is: ICD-10- CM 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 diabete s mellitu s with unspeci fied complic atWalter Sarmiento AMMY 12/22 [facility] Outpatient Encounter [id number] [id number] TANI ARROYO 12/27 [facility] N [facility] Outpatient Encounter [id number] [id number] MARY HARRIS 12/28 [facility] Outpatient Encounter [id number] [id number] [place] RIL L 12/29 [facility] Outpatient Encounter [id number] [id number] [place] RIL L 12/31 [facility] [place] [facility] Outpatient Encounter [id number] [id number] 01/03 [place] [facility] [place] [facility] Outpatient Encounter [id number] [id number] 01/03 [place] [facility] [place] [facility] Outpatient Encounter [id number] [id number] 01/03 [place] [facility] Outpatient Encounter [id number] [id number] 01/04 [facility] N [facility] Outpatient Encounter [id number] [id number] 01/07 [facility] [place] [facility] MTMS BY PHARM FEATHER EDGER 15 MIN [id number] [id number] Diagnos is: ICD-10- CM 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 Social History Type Response Date Comment Sourc e Tobacco smoking status ALIS VA-TOBACCO USE FORMER CIGARETTES 08/25/2024 [facility] History of tobacco use VA-TOBACCO NEVER USED OTHER TYPE 08/25/2024 [facility] History of tobacco use VA-TOBACCO FORMER USER 06/13/2023 [facility] History of tobacco use VA-TOBACCO FORMER USER 05/22/2022 [facility] History of tobacco use VA-TOBACCO NEVER USED 05/24/2021 [facility] History of tobacco use VA-TOBACCO QUIT 1 5 YRS OR MORE 02/07/2020 [facility] History of tobacco use VA-TOBACCO QUIT 1 5 YRS OR MORE 08/04/2018 [facility] History of tobacco use QUIT TOBACCO >7 Y EARS AGO 06/30/2017 [facility] History of tobacco use QUIT TOBACCO >7 Y EARS AGO 09/17/2012 [facility] History of tobacco use CURRENT NON-TOBAC CO USER-HX OF USE 11/30/2004 [facility] History of tobacco use CURRENT NON-TOBAC CO USER-HX OF USE 07/03/2004 [facility] History of tobacco use CURRENT NON-TOBAC CO USER-HX OF USE 09/01/2003 [facility] History of tobacco use CURRENT NON-TOBAC CO USER-HX OF USE 09/16/2002 [facility] Plan of Care List of future care activities from Department [facility] facilities. Additional future care activities may be listed in the Assessment and Plan section. Date/Time Care Activity Care Activity Detail Facili ty 01/17/2025 AMBULATORY - MEDICINE AMBULATORY - MEDICI [place] [facility]
--- OUTSIDE RECORDS SUMMARY | 2025-01-13 11:14 | XMS_ITS | Encounter Summary ---
Author Organization [facility] Address [address] [place] [address] Care Team Providers Care Check Out Cashier Name Role Phone Paula Sandoval MD Primary Care Provider + [phone] Reason for Visit * Reason Onset Date Comments 10/21/24 Willian Appt Needs Rescheduled 025 Encounter Details Date Type Department Care Team (Late st Contact Info) Description 09/23/[address] [facility] [address] [facility] [address] [place] [address] Lyndsey Dorsey, MARCELLO [address] [facility] [address], [address] [place] [phone] 10/21/24 Willian Appt Needs Rescheduled Social [...] PM CDT Provider: Willian Phone: Valente - [phone] MESSAGE 10/21/24 Willian appointment - pt unable to keep this appt due to having dialysis , , and Friday. Please make appt on non dialysis day. Would like appt from 10AM - 3PM please. Thank you. Susan Carpenter, [facility], Advanced PSR documented in this encounter Plan of Treatment Upcoming Encounters Date Type Department Care Team (Latest Contact Info) Description 5 11:45 AM CDT Appointment [facility] Laboratory Services [address] [place] [address] 5 1:44 PM CDT Hospital Encounter [facility] Cardiac Rotary Furnace Operator [address] [place] [phone] Sotero Alejandro MD [address] [place] [address] [place] [phone] Dilated cardiomyopathy (CMS/HCC) 5 1:44 PM CDT - 5 2:59 PM CDT Surgery [facility] Cardiac Rotary Furnace Operator [address] [place] [phone] Sotero Alejandro MD [address] [place] [address] [place] [phone] Pacemaker Upgrade to Biventricular ICD w Anesthesia 5 11:00 AM CDT Office Visit [facility] [address] [place] [address] Lyndsey Dorsey, CERTIFIED FRAUD EXAMINER [address] [facility] [address] [place] [phone] 5 2:00 PM CDT Hospital Encounter [facility] Endoscopy [address] [place] [phone] Clinton Ascencio, DO [address] [facility] [address] [place] [phone] 5 2:00 PM CDT - 5 2:20 PM CDT Surgery [facility] Endoscopy [address] [place] [phone] Clinton Ascencio, DO [address] [facility] [address] [place] [address] ESOPHAGOGASTRODUODENOSCOPY 5 11:30 AM CDT Office Visit [facility] Vascular Surgery [place] [address] [facility] [address] [place] [address] Klarissa Flowers MD [address] [facility] [address] [place] [address] Scheduled Procedures Name Priority Associated Diagnoses Date/Ti me ESOPHAGOGASTRODUODENOSCOPY gastric ulcer 02/07/2025 2:00 PM CDT documented as of this encounter Visit Diagnoses Not on filedocumented in this encounter Care Teams Check Out Cashier Relationship Specialty Start Date End Date Paula Sandoval MD [address] [place] [phone] PCP - General Family Practice 10/18/24 documented as of this encounter
--- OUTSIDE RECORDS SUMMARY | 2025-01-13 11:14 | XMS_ITS | Encounter Summary ---
Author Organization [facility] [employer], [facility] Address [address] [place] [address] Phone Care Team Providers Care Mining Teacher Name Role Phone Aljeandro Macias MD Primary Care Provider + [phone] Encounter Details Date Type Department Care Team (Late st Contact Info) Description 12/21/2024 [facility] [employer], [facility] [address] [place] [address] Smitha Bryan NP [address] [place] [address] Social History Tobacco Use Types [...] 12/21/2024 The patient was seen for a xzft-rw-[id number] visit as part of Transitional Care Management services. Attending Meter Repairer: TORY MCRAE Dialysis Location: [facility] Schedule: Shift: 2 INTERACTIVE CONTACT COMMENTS: [...] medication orders reviewed - no changes. Current [facility] Outpatient Medications atorvastatin 80 mg tablet Take [...] a day. fluticasone propionate 50 mcg/actuation spray,suspension Pawling 1 spray into both nostrils twice a [...] one tablet on Non-Dialysis Days. Friday/Friday/Friday/Friday] Current [facility] Allergies Allergen: allopurinol Reaction: Unknown Allergen: [...] relapse of symptoms. VISIT DIAGNOSES CPT Code 80697 - High complexity, seen 8-14 days post discharge or moderate complexity, seen days of discharge. 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
--- OUTSIDE RECORDS SUMMARY | 2025-01-13 11:14 | XMS_ITS | Encounter Summary ---
Author Organization [facility] [employer], [facility] Address [address] [place] [address] Phone Care Team Providers Care Internal Audit Director Name Role Phone Alejandro Macias MD Primary Care Provider + [phone] Encounter Details Date Type Department Care Team (Late st Contact Info) Description 12/14/2024 [facility]CM in [facility], [facility] [address] [place] [address] Jose L Alexander, HUNTER TRAPPER [address] [place] [address] Social History Tobacco Use Types [...] 12/14/2024 The patient was seen for a hlip-av-gwcx visit as part of Transitional Care Management services. Attending Valve Repairer Reclamation: TORY MCRAE Dialysis Location: [facility] Schedule: Shift: 2 INTERACTIVE CONTACT Contact [...] EGD Sepsis- resolved VISIT DIAGNOSES CPT Code 96211 - High complexity, seen within 7 days of discharge. N18.6 End stage renal disease Signed by: JOSE L ALEXANDER NP on 12/14/2024 at 12:03:22 PM Transcribed by: JOSE L ALEXANDER NP on 12/14/2024 at 12:03:22 PM documented in this encounter Plan of Treatment Not on file documented as of this encounter Visit Diagnoses Not on filedocumented in this encounter Care Teams Internal Audit Director Relationship Specialty Start Date End Date Alejandro Macias MD [address] [place] [address] PCP - General Family Medicine 12/15/18 documented as of this encounter
--- OUTSIDE RECORDS SUMMARY | 2025-01-13 11:14 | XMS_ITS | Encounter Summary ---
Author Organization [facility], [facility] Address [address] [place] [address] Phone Care Team Providers Care Account Resolution Expert Name Role Phone Alejandro Macias MD Primary Care Provider + [phone] Encounter Details Date Type Department Care Team (Late st Contact Info) Description 01/06/2025 Orders Only [facility] [address] [place] [address] Ro West MD [address] [place] [address] Social History Tobacco Use [...] 01/07/2025 Unless otherwise specified, test(s) performed at: [facility], [address] [place], [place] [id number] PROTOTYPE MACHINIST: Fab French M.D. For any questions, please call customer service at FREQUENCY:OTHER Resulting Agency Comment Specimen source: Blood us Ro West MD LAB BLOOD ORDERABLES Final Re sult [facility] See order comments or contact performing lab Unknown, [place] documented in this encounter Visit Diagnoses Not on filedocumented in this encounter Care Teams Account Resolution Expert Relationship Specialty Start Date End Date Alejandro Macias MD [address] [place] [id number] PCP - General Family Medicine 12/15/18 documented as of this encounter
--- NOTE | 2025-01-13 11:15 | XR_ITS ---
WS: [id number] Portable AP semiupright chest, 01/13/2025 Clinical Data: Weakness Comparison: Portable chest, 01/10/2025 Findings: A patchy opacity has developed in the retrocardiac region and over the left diaphragm. There are small bilateral pleural effusions. No nodules or masses are seen. The heart is slightly enlarged. The pulmonary vascularity is not increased. No pneumothorax is seen. Midline sternotomy sutures are present. There is a cardiac pacemaker with the generator overlapping the left axilla. Monitor leads are on the chest wall. XR/XR chest 1V portable [id number] Impression: 1. Development of patchy left lower lobe opacity which could represent pneumoni a, atelectasis and/or effusion. 2. Cardiomegaly and small bilateral effusions. 3. No change in cardiac pacemaker.
--- OUTSIDE RECORDS SUMMARY | 2025-01-13 11:15 | XMS_ITS | Encounter Summary ---
Author Organization [facility], [facility] Address [address] [place] [address] Phone Care Team Providers Care Dog Groomer Name Role Phone Alejandro Macias MD Primary Care Provider + [phone] Encounter Details Date Type Department Care Team (Late st Contact Info) Description 03/17/2019 Orders Only [facility], [facility] [address] [place] [address] Shine Mcgraw MD [address] [place] [address] Chronic kidney disease stage 4 (HCC) Social [...] / CREATININE RATIO Routine 04/28/2019 9:27 AM MALTED MILK SUPERVISOR Chronic kidney disease stage 4 (HCC) PTH, INTACT Routine 04/28/2019 9:27 AM MALTED MILK SUPERVISOR Chronic kidney disease stage 4 (HCC) RENAL FUNCTION PANEL Routine 04/28/2019 9:27 AM MALTED MILK SUPERVISOR Chronic kidney disease stage 4 (HCC) documented in this encounter Results * PTH, intact (04/28/2019 9:27 AM MALTED MILK SUPERVISOR) Parathyroid Hormone, Intact 41 pg/mL Blood specimen (specimen) 04/28/2019 9:27 AM MALTED MILK SUPERVISOR Tiburcio Colmenares MA - 05/03/2019 12:43 PM MALTED MILK SUPERVISOR .mello garcia Shine Mcgraw MD LAB BLOOD ORDERABLES Fi nal Result * Urine albumin / creatinine ratio (04/28/2019 9:27 AM MALTED MILK SUPERVISOR) Creatinine, Urine 80 mg/dL Albumin, Urine 17.1 mg/dL Alb/Creat Ratio, Ur 214.00 mcg/mg Urine specimen (specimen) 04/28/2019 9:27 AM MALTED MILK SUPERVISOR Tiburcio Colmenares MA - 05/03/2019 12:42 PM MALTED MILK SUPERVISOR .robert garcia Shine Mcgraw MD LAB URINE ORDERABLES Fi nal Result * (ABNORMAL) Renal function panel (04/28/2019 9:27 AM MALTED MILK SUPERVISOR) Albumin 4.4 3.5 - 5.0 g/dL BUN [...] 147 Blood specimen (specimen) 04/28/2019 9:27 AM MALTED MILK SUPERVISOR Tiburcio Colmenares MA - 05/03/2019 12:44 PM MALTED MILK SUPERVISOR .mello garcia Shine Mcgraw MD LAB BLOOD ORDERABLES Fi nal Result documented in this encounter Visit Diagnoses Diagnosis Chronic kidney disease stage 4 (HCC) documented in this encounter Care Teams Dog Groomer Relationship Specialty Start Date End Date Alejandro Macias MD [address] [place] [address] PCP - General Family Medicine 12/15/18 documented as of this encounter
--- OUTSIDE RECORDS SUMMARY | 2025-01-13 11:15 | XMS_ITS | Encounter Summary ---
Author Organization [facility] Address [address] [place] [address] Care Team Providers Care School Business Manager Name Role Phone Paula Sandoval MD Primary Care Provider + [phone] Reason for Visit * Reason Onset Date Comments Question 01/06/2025 Encounter Details Date Type Department Care Team (Late st Contact Info) Description 01/06/2025 Telephone [facility] [address] [facility] [address] [place] [address] Sotero Alejandro MD [address] [facility] [address] [place] [address] Question Social History Tobacco Use Types [...] spouse and they are going to call [facility], (we called earlier and left VM to [...] Info) Description 5 11:45 AM CDT Appointment [facility] Laboratory Services [address] [address] 5 1:44 PM CDT Hospital Encounter [facility] Cardiac Credit Balance Specialist [address] [place] [address] Sotero Alejnadro MD [address] [place] [address] Dilated cardiomyopathy (CMS/HCC) 5 1:44 PM CDT - 5 2:59 PM CDT Surgery [facility] Cardiac Credit Balance Specialist [address] [place] [address] Sotero Alejandro MD [address] [place] [address] Pacemaker Upgrade to Biventricular ICD w Anesthesia 5 11:00 AM CDT Office Visit [facility] [address] [place] [phone] Lyndsey Dorsey, INTELLIGENCE AGENT [address] [facility] [address] [place] [address] 5 2:00 PM CDT Hospital Encounter [facility] Endoscopy [address] [place] [address] Clinton Ascencio, DO [address] [facility] [address] [place] [address] 5 2:00 PM CDT - 5 2:20 PM CDT Surgery [facility] Endoscopy [address] [place] [address] Clinton Ascencio, DO [address] [facility] [address] [place] [address] ESOPHAGOGASTRODUODENOSCOPY 5 11:30 AM CDT Office Visit [facility] Vascular Surgery [place] [address] [facility] [address] [place] [address] Klarissa Flowers MD [address] [facility] [address] [place] [address] Scheduled Procedures Name Priority Associated Diagnoses Date/Ti me ESOPHAGOGASTRODUODENOSCOPY gastric ulcer 02/07/2025 2:00 PM CDT documented as of this encounter Visit Diagnoses Not on filedocumented in this encounter Care Teams School Business Manager Relationship Specialty Start Date End Date Paula Sandoval MD [address] [place] [phone] PCP - General Family Practice 10/18/24 documented as of this encounter
--- OUTSIDE RECORDS SUMMARY | 2025-01-13 11:15 | XMS_ITS | Clinical Summary ---
Author Organization [facility] Address [address] [place] [address] Phone Care Team Providers Care Gaming Director Name Role Phone Paula Sandoval MD Primary [...] Constipation. Active fluticasone propionate (FLONASE) 50 mcg/spray Compton, Suspension nasal inhaler Administer 1 Compton in each nostril 2 times daily. Active [...] (80 mg) by mouth daily. 30 Tablet 4 1:52 PM CDT 04/06/20 24 Active Additional Information Patient taking differently:80 mg OralDAILY LATE, Reported on 01/03/2025 furosemide (LASIX) 40 mg tablet Take 2 Tablets (80 mg) by mouth two times daily, 7 hours apart. 120 Tablet 4 1:52 PM CDT 04/06/20 24 Active isosorbide [...] Max Daily Amount: 6 Tablets 15 Tablet 5 11:43 AM CDT 11/30/19 25 Active pantoprazole [...] mouth daily. 90 Tablet 01/11/20 25 Active fexofenadine (EUGENIO) 180 mg tablet Take 1 Tablet (180 mg) by mouth daily for 2 doses. Take 180 mg of eugenio the night before and again morning of your procedure 2 Tablet 01/13/20 25 Active diphenhydrAMINE (BENADRYL) 50 mg capsule Take this dose 2 hours before your procedure 1 Capsule 01/13/20 25 Active predniSONE (DELTASONE) 20 mg tablet Take 3 Tablets (60 mg) by mouth see administration instructions for 3 doses. Take 3 Tablets (60 mg) by mouth for 3 doses. Take one dose 60 mg around lunch time the day before surgery, take a second dose 60 mg in the evening the day before surgery, and take your final dose of 60 mg the morning of surgery. 9 Tablet 01/13/20 25 Active pirtobrutinib (Jaypirca) 50 mg TabletIndicatio ns:CLL (chronic lymphocytic leukemia) (CMS/HCC) Take 1 tablet (50mg) by mouth daily. 90 Tablet 12/24/19 25 025 Discontin ued(Reord er) Active Problems Problem Noted Date Diagnosed Date Pacemaker at end of battery life 01/12/2025 Cardiac pacemaker in situ 01/12/2025 Cardiac left ventricular ejection fraction 21-40 percent 01/12/2025 Melena 12/09/2024 Acute blood loss anemia 12/09/2024 [...] lobe of lung 03/29/2024 Lesion of right samish kidney 03/29/2024 Acute hypoxic respiratory failure 03/29/2024 Anemia 03/29/2024 Thrombocytopenia 03/29/2024 Impaired mobility 02/02/2021 CLL (chronic lymphocytic leukemia) 02/02/2021 History of COVID-19 02/02/2021 Generalized muscle weakness 01/30/2021 Acute cystitis without hematuria 01/30/2021 Stage 4 chronic kidney disease 11/05/2019 Chronic lymphocytic leukemia 11/05/2019 Encounters Date Type Department Care Team Description 5 Orders Only [facility] Cancer and Hematology [place] [address] [place] [address] Umm Dotson, CLL (chronic lymphocytic leukemia) (CMS/HCC) (Primary Dx) 5 Prep for Surgery [facility] [address] [place] [phone] Sotero Alejandro MD Cardiac pacemaker in situ (Primary Dx); Left ventricular ejection fraction of 20-34%; Pacemaker at end of battery life; Ischemic dilated cardiomyopathy (CMS/HCC); Combined systolic and diastolic congestive heart failure, unspecified HF chronicity (CMS/HCC); Cardiac left ventricular ejection fraction 21-40 percent 5 Telephone [facility] [address] [place] [phone] Anum Dias RN Needs Appointment 5 Chart Note [facility] [address] [place] [phone] Anum Dias RN 5 8:00 AM CDT Procedure visit [facility] [address] [place] [phone] Sotero Alejandro MD Sick sinus syndrome (CMS/HCC) (Primary Dx) 5 Refill [facility] Cancer and Hematology [place] [address] [address] Umm Dotson DO CLL (chronic lymphocytic leukemia) (CMS/HCC) 5 Telephone [place] [address] [place] [phone] Sotero Alejandro MD Question 5 Telephone [place] [address] [place] [phone] Sotero Alejandro MD Question 5 Specialty Pharmacy [facility] [address] [place] [phone] Wendi Bauman, PHARMACIST 5 [facility] Cancer [facility]emat[facility] [place] [address] [address] [place] [phone] Umm Dotson DO 5 Telephone [facility] [address] [place] [phone] Sotero Alejandro MD Pacemaker has been transferred 5 Telephone [place] [address] [place] [phone] Sotero Alejandro MD Question 5 Telephone [place] [address] [place] [phone] Sotero Alejandro MD Question; Returning call about the carelink download 5 External Device Data [facility] ABSTRACTION Provider, Abstract 5 External Device Data [place] ABSTRACTION Provider, Abstract 5 External Device Data [place] ABSTRACTION Provider, Abstract 5 External Device Data [place] ABSTRACTION Provider, Abstract 5 3:30 PM CDT Video Visit [facility] Cancer and Hematology [place] [address] [place] [address] Iqra Brito NP CLL (chronic lymphocytic leukemia) ([facility]/HCC) (Primary Dx); ESRD (end stage renal disease) on dialysis ([facility]); Encounter for education; Gastric ulcer, unspecified chronicity, unspecified whether gastric ulcer hemorrhage or perforation present 5 Orders Only [facility] [address] [facility] [address] [place] [address] Clinton Ascencio DO Gastric ulcer with hemorrhage, unspecified chronicity (Primary Dx) 5 12:00 PM CDT Office Visit [facility] Cancer and Hematology [place] [address] [facility] [address] [place] [address] Umm Dotson, CLL (chronic lymphocytic leukemia) ([facility]/HCC) (Primary Dx) 5 Orders Only [facility] Cancer [facility] Hematology [place] [address] [place] [address] Umm Dotson, CLL (chronic lymphocytic leukemia) ([facility]/HCC) (Primary Dx) 5 Orders Only [facility] Cancer and Hematology [place] [address] [place] [address] Umm Dotson, CLL (chronic lymphocytic leukemia) ([facility]/HCC) (Primary Dx) 5 1:45 PM CDT Office Visit [facility] [place] [address] [place] [address] Klarissa Flowers MD ESRD (end stage renal disease) ([facility]) (Primary Dx); S/P arteriovenous (AV) graft placement 5 Telephone [facility] [place] [address] [place] [phone] Klarissa Flowers MD Question 5 Orders Only [facility] HIM [address] [place] [phone] Provider, Abstract 5 10:50 AM CDT Anesthesia Event [facility] Endoscopy [address] [place] [phone] Tariq Ruggieor MD Edwards, Cary Dawn, CRNA 5 8:20 AM CDT - 5 8:40 AM CDT Surgery [facility] Endoscopy [address] [place] [phone] Clinton Ascencio, DO ESOPHAGOGASTRODUODENOSCOPY 5 External Device Data [facility] ABSTRACTION Provider, Abstract 5 Travel 5 12:47 AM CDT - 5 8:00 PM CDT Hospital Encounter [facility] 3D Medical Telemetry [address] [place] [phone] Jim Asif MD Pendurthi, MD Francisco Hurst Ammar, MD Shah, MD Jason Dominguez, Ruperto Junior MD Severe sepsis with septic shock ([facility]) Discharge Disposition: Home or Self Care 5 7:30 AM CDT Anesthesia Event [facility] Operating Room [address] [place] [phone] Jeffry Walker MD 5 7:20 AM CDT - 5 9:09 AM CDT Surgery [facility] Operating Room [address] [place] [address] Klarissa Flowers MD ARTERIOVENOUS GRAFT INSERTION 5 5:30 AM CDT - 5 12:05 PM CDT Hospital Encounter [facility] 3J Pre-Op [address] [place] [address] Klarissa Flowers MD End stage renal disease (CMS/HCC) Discharge Disposition: Home or Self Care 5 Prep for Surgery [facility] [address] [address] Klarissa Flowers MD ESRD (end stage renal disease) ([facility]/HCC) (Primary Dx) 5 Telephone [facility] [address] [address] Klarissa Flowers MD Surgery Talk 5 Telephone [facility] [address] [phone] Klarissa Flowers MD Erroneous encounter-disregard 5 Orders Only [facility] [address] [phone] Klarissa Flowers MD ESRD (end stage renal disease) ([facility]/HCC) (Primary Dx); Encounter for pre-operative examination; Abnormal coagulation profile [address] [address] Klarissa Flowers MD Appointment Notification 5 12:30 PM CDT Office Visit [facility] [address] [phone] Klarissa Flowers MD ESRD (end stage renal disease) ([facility]/HCC) (Primary Dx); Dilated cardiomyopathy (CMS/HCC); Type 2 diabetes mellitus with stage 4 chronic kidney disease, with long-term current use of insulin ([facility]); Acute combined systolic and diastolic congestive heart failure ([facility]); Coronary artery disease involving samish coronary artery of samish heart without angina pectoris 5 11:00 AM CDT Ancillary Procedure [facility] [place] [address] [place] [address] Klarissa Flowers MD Benign hypertension with ESRD (end-stage renal disease) ([facility]) 5 Telephone [facility] [place] [address] [place] [address] Klarissa Flowers MD Appointment Verification 5 Telephone [facility] [address] [place] [address] Klarissa Flowers MD Question 5 Telephone [facility] [address] [place] [phone] Sotero Alejandro MD Follow Up; Question; Michelle returning a call 5 Telephone [facility] [address] [place] [phone] Sotero Alejandro MD Information; Follow Up 5 11:15 AM CDT Procedure visit [facility] [address] [place] [phone] Sotero Alejandro MD Chronic combined systolic and diastolic heart failure ([facility]) (Primary Dx); SSS (sick sinus syndrome) ([facility]) 5 11:15 AM CDT Office Visit [facility] [address] [place] [phone] Sotero Alejandro MD SSS (sick sinus syndrome) ([facility]) (Primary Dx) 5 Abstract [facility] [address] [facility] [address] [place] [phone] Scanning, Provider 5 Orders Only [facility] [address] [facility] [address] [place] [phone] Sotero Alejandro MD Chronic combined systolic and diastolic heart failure (CMS/HCC) (Primary Dx); SSS (sick sinus syndrome) (CMS/HCC) from Last 3 Months Immunizations Immunization Administration Dates Next Due (ADACEL/BOOSTRIX)(10 YR UP) TDAP VACCINE, 0.5ML, IM 12/20/2020 (HEPLISAV-B)(18 YR UP) HEPAT ITIS B VACCINE CPG-ADJUVANTED (HEPB-CPG) 2-4 DOSE, IM 04/29/2024 (PFIZER)(12 YR UP) COVID-19 VACCINE - EMERGENCY USE AUTHORIZATION, MRNA, [id number](PF) 30 MCG/0.3 ML IM SUSP 08/18/2020,07/24/2020,06/23/2020 (PNEUMOVAX [...] Info) Description 5 11:45 AM CDT Appointment [facility] Laboratory Services [address] [facility] [address] [place] [phone] 5 1:44 PM CDT Hospital Encounter [facility] Cardiac Staffing Recruiter [address] [place] [address] Sotero Alejandro MD [address] [facility] [address] [place] [address] Dilated cardiomyopathy (CMS/HCC) 5 1:44 PM CDT - 5 2:59 PM CDT Surgery [facility] Cardiac Staffing Recruiter [address] [place] [address] Sotero Alejandro MD [address] [place] [address] Pacemaker Upgrade to Biventricular ICD w Anesthesia 5 11:00 AM CDT Office Visit [facility] [address] [place] [address] Lyndsey Dorsey, MARCELLO [address] [facility] [address] [place] [address] 5 2:00 PM CDT Hospital Encounter [facility] Endoscopy [address] [place] [phone] Clinton Ascencio, DO [address] [facility] [address] [place] [phone] 5 2:00 PM CDT - 5 2:20 PM CDT Surgery [facility] Endoscopy [address] [place] [address] Clinton Ascencio, DO [address] [address] ESOPHAGOGASTRODUODENOSCOPY 5 11:30 AM CDT Office Visit [facility] [place] [address] [place] [phone] Klarissa Flowers MD [address] [facility] [address] [place] [address] Scheduled Procedures Name Priority Associated Diagnoses Date/Ti me ESOPHAGOGASTRODUODENOSCOPY gastric ulcer 02/07/2025 2:00 PM CDT Health Maintenance Due Date Last Done Comments DIABETES ANNUAL FOOT EXAM 1963 Traditional Medicare (O) A nnual Wellness Visit 1963 RSV VACCINE [...] years Discontinued Medical Devices Implanted Type Area Paperboard Box Maker Device Identifier Shelf Expiration Date Model / Serial / Lot Cath Dialysis Glidepath 14.5fr 23cm Std [id number] - [id number] Implanted:Qty: 1 on 04/01/2024 by Kim Flowers MD at [facility] Catheter Right: Chest BARD NUVIA VASC [id number] 09/20/2025 [id number] / / [id number] Clip Ligating Horizon Red [id number] - Csc - [id number] Implanted:Qty: 1 on 11/29/2024 by Klarissa Flowers MD at [facility] Clip Right: Arm [employer] [id number] 08/06/2029 [id number] / / [id number] Clip Ligating Horizon Med Ti [id number] - - [id number] Implanted:Qty: 1 on 11/29/2024 by Klarissa Flowers MD at [facility] Clip Right: Arm TELE[employer]LEX- WECK CLOSURE SYS [id number] 05/30/2029 [id number] / / [id number] Graft Vasc Propaten 4-3epe04pl [id number] - [id number] Implanted:Qty: 1 on 11/29/2024 by Klarissa Flowers MD at [facility] Graft Right: Arm [employer] [id number] 07/19/2027 [id number] / [id number] / Agent Hemostat Surgicel 2x3in - [id number] Implanted:Qty: 1 on 11/29/2024 by Klarissa Flowers MD at [facility] Hemostatic Right: Arm [employer] [id number] 09/20/2028 [id number] / / [id number] Pacemaker Procedures Procedure Name Priority Date/Time Associated Diagnosis Comments MS REM INTERROG PM/LDLS PM/I DS <90 D TECH REVIEW Routine 01/10/2025 7:41 AM CDT Sick sinus syndrome (CMS/HCC) MS REM INTERROG PM/LDLS PM < 90 D [...] AM CDT VANCOMYCIN LEVEL RANDOM Routine 12/05/19 25 1:57 AM CDT PROCALCITONIN Routine 12/04/2024 1:57 AM CDT TROPONIN BASELINE, 5TH GEN Stat 12/04 1:57 AM CDT BASIC METABOLIC PANEL Routine 12/04/2024 1:57 AM CDT COMPREHENSIVE METABOLIC PANEL Routine 12:41 PM CDT TELEMETRY REPORT 12/01/2024 10:48 AM CDT PROCEDURE PHOTOGRAPHS 12/01/2024 10:48 AM CDT MS ANESTHESIA BLOCK PB PLACEHOLDER CHARGE Routine 11/29/2024 8:07 AM CDT MS CRTJ ARVEN FSTL XCP DIR ARVEUGENIA ANAST NONAUTOG GRF 11/29/2024 7:20 AM CDT [...] hypertension with ESRD (end-stage renal disease) (CMS/HCC) MS PROGRAM EVAL IMPLANTABLE IN PERSN DUAL LD PACER Routine 10/26/2024 11:10 AM CDT Chronic combined systolic and diastolic heart failure (CMS/HCC) SSS (sick sinus syndrome) (CMS/HCC) MS ECG ROUTINE ECG W/LEAST 1 2 LDS W/I&R Routine 10/25/2024 1:53 PM CDT Chronic combined systolic and diastolic heart failure (CMS/HCC) SSS (sick sinus syndrome) (CMS/HCC) MICROALBUMIN/CREATININE RATI O, RANDOM UR Routine 03/29/2024 6:06 PM CDT LIPID RFLX Routine 03/29/2024 1:24 AM CDT HEMOGLOBIN A1C Routine 03/29/2024 1:24 AM CDT from Last 3 Months or Most Recently Relevant to Health Maintenance Results * MS REM INTERROG PM/LDLS PM <90 D PHYS/QHP, MS REM INTERROG PM/LDLS PM/IDS <90 D TECH REVIEW (01/10/2025 7:41 AM CDT) 01/10/2025 7:41 AM CDT Narrative INTERFACE SYSTEM - 01/10/2025 9:18 AM CDT Remote Transmission Report Date of Procedure: January 10, 2025 Events: 0 recorded episodes. GENA/TIPPLE OILER triggered on 12-03-2024. Reviewed with family and they are aware Dr. Alejandro's team will be calling to schedule the gen change. Comments: remote transmission reveals normal dual chamber pacemaker (programmed VVI 65 due to GENA/TIPPLE OILER status) function with stable available threshold and impedance trends. Presenting EGM indicates Ventricular Pacing, . Follow-up 3 week wound check post pending gen change. See attached report for details. Procedure Note Provider, Historical - 01/10/2025 Remote Transmission Report Date of Procedure: January 10, 2025 Events: 0 recorded episodes. GENA/TIPPLE OILER triggered on 12-03-2024. Reviewedwith family and they are aware Dr. Alejandro's team will be calling toschedule the gen change. Comments: remote transmission reveals normal dual chamber pacemaker (programmedVVI 65 due to GENA/TIPPLE OILER status) function with stable available threshold andimpedance [...] 99 mg/dL 12/11/2024 5:46 PM CDT [facility] SPECIMEN SOURCE, GLUCOSE POC Capillary 12/11/2024 5:46 PM CDT [facility] Blood, whole 12/11/2024 5:46 PM CDT 12/11/2024 6:17 PM CDT Ruperto Gomez MD POINT OF CARE TESTING Fi nal Result [facility] CLIA # [id number] [address] [place] [address] * HEMODIALYSIS (12/11/2024 12:00 PM CDT) Narrative [facility] - 12/11/2024 12:00 PM CDT Jim Farooq MD 12/11/2024 12:22 PM [facility] - Procedure Note Primary Hvac Mechanical Engineer: Dr. Ro West PROCEDURE: Intermittent Hemodialysis INDICATION: [...] stores adequate tsat 29% Addy Jacobs NP [facility] 12/11/24, 12:00 PM us Dustin Michel ANP DIALYSIS ORDERABLES Final Res ult [facility] CLIA # [id number] [address] [place] [address] * (ABNORMAL) MANUAL DIFFERENTIAL (12/11/2024 10:03 AM CDT) Only the most recent of10 resultswithin the time period is included. SEGMENTED NEUTROPHILS 3(L) 36 - 66 % 12/11/2024 11:25 AM [facility] LYMPHOCYTES RELATIVE 97(H) 24 - 44 % 12/11/2024 11:25 AM [facility] PLATELET EST. Decreased 12/11/2024 11:25 AM [facility] NEUTROPHILS ABSOLUTE COUNT 1.78(L) 2.00 - 8.00 K/uL 12/11/2024 11:25 AM [facility] LYMPHOCYTES ABSOLUTE 57.52(H) 1.20 - 4.00 K/uL 12/11/2024 11:25 AM T [facility] ATYPICAL LYMPHS ABSOLUTE 12/11/2024 11:25 AM T [facility] ANISOCYTOSIS 2+ /hpf 12/11/2024 11:25 AM [facility] POIKILOCYTES 1+ /hpf 12/11/2024 11:25 AM [facility] MACROCYTES 1+ /hpf 12/11/2024 11:25 AM [facility] TOTAL CELLS COUNTED IN DIFF 100 12/11/2024 11:25 AM CDT [facility] Blood Venipuncture / Unknown 12/11/2024 10:03 AM CDT 12/11/2024 10:37 AM CDT Ruperto Gomez MD HEMATOLOGY ORDERABLES CO M Final Result [facility] CLIA # [id number] [facility] [place] [address] [place] [address] * (ABNORMAL) CBC WITH DIFFERENTIAL (12/11/2024 10:03 AM CDT) Only the most recent of10 resultswithin the time period is included. WBC 59.3(H) 4.8 - 10.8 K/uL 12/11/2024 11:25 AM [facility] RBC 2.30(L) 4.60 - 6.20 M/uL 12/11/2024 11:25 AM T [facility] HEMOGLOBIN 7.3(L) 14.0 - 18.0 g/dL 12/11/2024 11:25 AM [facility] HEMATOCRIT 23.5(L) 41.0 - 53.0 % 12/11/2024 11:25 AM [facility] MCV 102.2 84.0 - 103.0 fL 12/11/2024 11:25 AM T [facility] MCH 31.7 27.0 - 34.0 pg 12/11/2024 11:25 AM [facility] MCHC 31.1 30.0 - 35.0 g/dL 12/11/2024 11:25 AM T [facility] PLATELETS 72(L) 140 - 440 K/uL 12/11/2024 11:25 AM [facility] MPV 11.3 8.9 - 12.8 fL 12/11/2024 11:25 AM T [facility] RDW 18.3(H) 11.0 - 14.5 % 12/11/2024 11:25 AM CDT [facility] RDW-STDEV 67.4(H) 37.0 - 54.0 fL 12/11/2024 11:25 AM CDT [facility] SMEAR REVIEWED: - See Manual Diff. 12/11/2024 11:25 AM CDT [facility] Blood Venipuncture / Unknown 12/11/2024 10:03 AM CDT 12/11/2024 10:37 AM CDT Ruperto Gomez MD HEMATOLOGY ORDERABLES Fi nal Result [facility] CLIA # [id number] [address] [place] [address] * (ABNORMAL) RENAL FUNCTION PANEL (12/11/2024 8:58 AM CDT) SODIUM 134(L) 136 - 145 mmol/L 12/11/2024 9:55 AM T [facility] POTASSIUM 4.2 3.5 - 5.1 mmol/L 12/11/2024 9:55 AM T [facility] CHLORIDE 96(L) 98 - 107 mmol/L 12/11/2024 9:55 AM T [facility] CO2 22 22 - 29 mmol/L 12/11/2024 9:55 AM T [facility] CALCIUM 8.2(L) 8.8 - 10.2 mg/dL 12/11/2024 9:55 AM CDT [facility] BUN 59(H) 8 - 23 mg/dL 12/11/2024 9:55 AM CDT [facility] CREATININE 5.39(H) 0.67 - 1.17 mg/dL 12/11/2024 9:55 AM T [facility] Comment:The GFR result is no t clinically significant on patients <18 or >70 years of age. GLUCOSE 196(H) 74 - 99 mg/dL 12/11/2024 9:55 AM CDT [facility] ALBUMIN 3.8 3.5 - 5.2 g/dL 12/11/2024 9:55 AM CDT [facility] PHOSPHORUS 6.0(H) 2.5 - 4.5 mg/dL 12/11/2024 9:55 AM CDT [facility] GFR 10 mL/min/1. 73 sq meter 12/11/2024 9:55 AM T [facility] Comment:eGFR calculated with 2020 CKD-EPI equation. Vegetarian diet, extremely high or low muscle mass, and may affect results. Cystatin C with Glomerular Filtration Rate is a suitable alternative for these patients. ANION GAP 16 9 - 20 mmol/L 12/11/2024 9:55 AM CDT [facility] Blood Venipuncture / Unknown 12/11/2024 8:58 AM CDT 12/11/2024 9:25 AM CDT us Ro West MD CHEMISTRY ORDERABLES Final Result [facility] CLIA # [id number] [address] [place] [address] * (ABNORMAL) HEMOGLOBIN AND HEMATOCRIT (12/10/2024 8:11 PM CDT) Pathologist [facility] HEMOGLOBIN 7.6(L) 14.0 - 18.0 g/dL 12/10/2024 8:49 PM CDT [facility] HEMATOCRIT 25.0(L) 41.0 - 53.0 % 12/10/2024 8:49 PM CDT [facility] Blood Venipuncture / Unknown 12/10/2024 8:11 PM CDT 12/10/2024 8:32 PM CDT us Jazmin Lema MD HEMATOLOGY ORDERABLES Final Result [facility] # [id number] [facility] [address] [place] [address] * UPPER ENDOSCOPY REPORT (12/10/2024 11:09 AM CDT) Narrative Procedure Note Clinton Ascencio DO - 12/10/2024 11:09 AM CDT [facility] GI Patient Name: Nisa Renae Procedure Date: [...] Time Scope In: Scope Out: [address] [place], [place] Clinton Ascencio DO GI PROCEDURE ORDERABLES Final Result * PATHOLOGY (12/10/2024 11:00 AM CDT) CASE REPORT Surgical Pathology Report Case: [id number] Authorizing Provider: Clinton Ascencio DO Collected: 12/10/2024 11:00 AM Ordering Location: [facility] Received: 12/10/2024 03:55 PM Endoscopy Pathologist: Izaiah Sandoval MD Specimen: Stomach, ulcers 11:19 AM CDT [facility] FINAL DIAGNOSIS A. 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 pylori by immunohistochemistry REV: GERMAIN Sandoval MD [id number] 11:19 AM T [facility] at 1119 CDT DIAGNOSIS COMMENT The patient's clinical history of CLL/SLL is noted. It is unclear if the fragment of ulcer bed is from the stomach or possibly a contaminant. Clinical and endoscopic correlation is recommended. 11:19 AM T [facility] GROSS DESCRIPTION A. Received in formalin labeled Renae -stomach ulcers are two fragments of tissue up to 0.4 cm. The specimen is submitted in toto in A1. Elif Shine 11:19 AM T [facility] MICROSCOPIC DESCRIPTION After review of H&E [...] highlight polytypic plasma cells. 5 11:19 AM CDT [facility] OPERATIVE PROCEDURE 1: ESOPHAGOGASTRODUODENOSCO PY 5 11:19 AM CDT [facility] CLINICAL INFORMATION A Bxs of gastric ulcers Bxs of gastric ulcers 5 11:19 AM CDT [facility] COMMENT The [employer] voice-activated dictation system may have been used [...] determined by the Diagnostic Immunohistochemistry Laboratory of [facility] in compliance with CLIA'88 regulations. Some of these tests rely on the use of analyte specific reagents and are subject to specific labeling requirements by the FDA. All controls show appropriate reactivity. This testing was developed by the Diagnostic Immunohistochemistry Laboratory of [facility]. It has not been cleared or approved by the FDA. The FDA has determined that such clearance or approval is not necessary. 5 11:19 AM CDT [facility] Tissue ENTIRE STOMACH / Unknown Collection / Unknown 12/10/2024 11:00 AM CDT 12/10/2024 3:55 PM CDT Comment:Bxs of gastric ulcer s us Clinton Ascencio DO PATHOLOGY/CYTOLOGY ORDE STEVIE Final Result [facility] CLIA # [id number] [address] [place] [id number] * (ABNORMAL) OCCULT BLOOD GUAIAC DIAGNOSTIC (12/08/2024 11:32 AM CDT) OCCULT BLOOD, STOOL Positive( A) Negative 12/08/2024 5:38 PM CDT [facility] Stool STOOL SPECIMEN / Unknown Collection / Unknown 12/08/2024 11:32 AM CDT 12/08/2024 5:28 PM CDT us Jazmin Lema MD BODY FLUIDS AND STOOLS Final Result Performing Organization Address [facility] de Phone Number [facility] CLIA # [id number] [address] [address] * (ABNORMAL) IRON, TIBC, AND PERCENT SATURATION (12/08/2024 4:23 AM CDT) IRON 55(L) 59 - 158 ug/dL 12/09/2024 4:39 PM CDT [facility] TIBC 187(L) 250 - 450 ug/dL 12/09/2024 4:39 PM CDT [facility] IRON % SATURATION 29 15 - 60 % 12/09/2024 4:39 PM CDT [facility] Blood Venipuncture / Unknown 12/08/2024 4:23 AM CDT 12/08/2024 4:33 AM CDT us Umm Dotson DO CHEMISTRY ORDERABLES Fi nal Result Performing Organization Address [facility] Co de Phone Number [facility] CLIA # [id number] [address] [address] * (ABNORMAL) FERRITIN (12/08/2024 4:23 AM CDT) FERRITIN 917.2(H) 30.0 - 400.0 ng/mL 12/09/2024 4:38 PM CDT [facility] Blood Venipuncture / Unknown 12/08/2024 4:23 AM CDT 12/08/2024 4:33 AM CDT us Umm Sugey Dotson DO CHEMISTRY ORDERABLES Fi nal Result [facility] JANICE # [id number] [address] [facility] [place] [address] * (ABNORMAL) COMPREHENSIVE METABOLIC PANEL (12/08/2024 4:23 AM CDT) Only the most recent of5 resultswithin the time period is included. [facility] SODIUM 136 136 - 145 mmol/L 12/08/2024 5:13 AM CDT [facility] POTASSIUM 4.3 3.5 - 5.1 mmol/L 12/08/2024 5:13 AM CDT [facility] CHLORIDE 98 98 - 107 mmol/L 12/08/2024 5:13 AM CDT [facility] CO2 26 22 - 29 mmol/L 12/08/2024 5:13 AM CDT [facility] CALCIUM 8.8 8.8 - 10.2 mg/dL 12/08/2024 5:13 AM CDT [facility] BUN 54(H) 8 - 23 mg/dL 12/08/2024 5:13 AM CDT [facility] CREATININE 4.59(H) 0.67 - 1.17 mg/dL 12/08/2024 5:13 AM CDT [facility] Comment:The GFR result is no t clinically significant on patients <18 or >70 years of age. GLUCOSE 153(H) 74 - 99 mg/dL 12/08/2024 5:13 AM CDT [facility] TOTAL PROTEIN 5.4(L) 6.4 - 8.3 g/dL 12/08/2024 5:13 AM CDT [facility] ALBUMIN 3.5 3.5 - 5.2 g/dL 12/08/2024 5:13 AM CDT [facility] BILIRUBIN TOTAL 0.4 0.0 - 1.0 mg/dL 12/08/2024 5:[facility] AL[facility] PHOSPH[facility] 85 40 - 129 U/L 12/08/2024 5:13 AM [facility] AST 28 10 - 50 U/L 12/08/2024 5:13 AM T [facility] ALT 76(H) <=50 U/L 12/08/2024 5:13 AM T [facility] GFR 12 mL/min/1. 73 sq meter 12/08/2024 5:13 AM T [facility] Comment:eGFR calculated with 2020 CKD-EPI equation. Vegetarian diet, extremely high or low muscle mass, and may affect results. Cystatin C with Glomerular Filtration Rate is a suitable alternative for these patients. ANION GAP 12 9 - 20 mmol/L 12/08/2024 5:13 AM T [facility] Blood Venipuncture / Unknown 12/08/2024 4:23 AM CDT 12/08/2024 4:33 AM CDT Dustin Michel ANP CHEMISTRY ORDERABLES Final Re sult [facility] CLIA # [id number] [address] [place] [address] * UNFRACTIONATED HEPARIN MONITORING (12/07/2024 6:58 AM CDT) Only the most recent of9 resultswithin the time period is included. ANTI-XA UNFRAC HEP 0.41 See Interpretation IU/mL 12/07/2024 7:19 AM CDT [facility] Blood Venipuncture / Unknown 12/07/2024 6:58 AM CDT 12/07/2024 7:02 AM CDT Narrative [facility] - 12/07/2024 7:19 AM CDT Therapeutic Range: PT/DVT Heparin Protocol 0.3 - 0.7 IU/ml Cardiac Heparin Protocol 0.3 - 0.6 IU/ml The reference range for this test is specific to the anticoagulant and is not appropriate for monitoring patients on a DOAC protocol. Jazmin Lema MD HEMATOLOGY ORDERABLES Final Result Performing Organization Address [facility] Co de Phone Number [facility] CLIA # [id number] [address] [place] [address] * LACTIC ACID (12/06/2024 1:48 PM CDT) Only the most recent of3 resultswithin the time period is included. LACTIC ACID 2.0 <=2.0 mmol/L 12/06/2024 2:15 PM CDT [facility] Blood Venipuncture / Unknown 12/06/2024 1:48 PM CDT 12/06/2024 1:51 PM CDT Dustin Michel ANP CHEMISTRY ORDERABLES Final Re sult Performing Organization Address [facility] de Phone Number [facility] CLIA # [id number] [address] [place] [address] * LIPASE (12/06/2024 4:51 AM CDT) LIPASE 14 13 - 60 U/L 12/06/2024 1:17 PM CDT [facility] Blood Venipuncture / Unknown 12/06/2024 4:51 AM CDT 12/06/2024 4:59 AM CDT us Dustin Michel ANP CHEMISTRY ORDERABLES Final Re sult Performing Organization Address [facility] Co de Phone Number [facility] CLIA # [id number] [address] [place] [address] * XR ABDOMEN FOR FEEDING TUBE 1 [...] URINE CULTURE (12/05/2024 10:28 AM CDT) Pathologist [facility] CULTURE No growth 12/06/2024 9:43 AM CDT [facility] Urine URINE SPECIMEN OBTAINED BY CLEAN CATCH PROCEDURE / Unknown Collection / Unknown 12/05/2024 10:28 AM CDT 12/05/2024 10:32 AM CDT Walt Aguero MD MICROBIOLOGY - GENERAL ORDERABLES [id number] [address] [place] [address] * (ABNORMAL) BASIC METABOLIC PANEL PLUS (ADD ON CMP TO BMP) (12/05/2024 8:54 AM CDT) TOTAL PROTEIN 6.0(L) 6.4 - 8.3 g/dL 12/05/2024 3:17 PM CDT [facility] ALBUMIN 3.8 3.5 - 5.2 g/dL 12/05/2024 3:17 PM CDT [facility] BILIRUBIN TOTAL 0.8 0.0 - 1.0 mg/dL 12/05/2024 3:17 PM CDT [facility] ALKALINE PHOSPHATASE 76 40 - 129 U/L 12/05/2024 3:17 PM CDT [facility] AST 60(H) 10 - 50 U/L 12/05/2024 3:17 PM CDT [facility] ALT 120(H) <=50 U/L 12/05/2024 3:17 PM CDT [facility] Blood Venipuncture / Unknown 12/05/2024 8:54 AM CDT 12/05/2024 9:11 AM CDT Dustin Michel ANP CHEMISTRY ORDERABLES Final Re sult Performing Organization Address [facility] Co de Phone Number [facility] CLIA # [id number] [address] [address] * (ABNORMAL) TROPONIN (12/05/2024 8:54 AM CDT) Only the most recent of2 resultswithin the time period is included. TROPONIN T, 5TH GEN 3,843(HH) <=15 ng/L 12/05/2024 9:53 AM CDT [facility] Blood Venipuncture / Unknown 12/05/2024 8:54 AM CDT 12/05/2024 9:11 AM CDT Narrative [facility] - 12/05/2024 9:53 AM CDT Troponin elevated. Dustin Michel ANP CHEMISTRY ORDERABLES Final Re sult Performing Organization Address [facility] Co de Phone Number [facility] CLIA # [id number] [address] [address] * EKG 12-LEAD (12/05/2024 8:05 AM CDT) Only the most recent of5 resultswithin the time period is included. 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 Clerk: [email or web address] : 1945 Requested By: Order Number: [id number] Helen MD: Bianca Kelly Measurements Intervals [place] Rate: 65 P: 96 MS: 0 QRS: -76 QRSD: 200 T: 95 QT: 496 QTc: 515 Interpretive Statements Ventricular-paced rhythm Abnormal ECG Electronically Signed On 12-05-2024 13:09:51 CDT by Bianca Kelly Procedure Note Provider, Historical - 12/05/[address] [address] Test Date: 2024-12-05 Pat Name: NISA RENAE Department: 12 Room: [address] [place] [address] Gender: Male Appellate Law Clerk: [email or web address] : 1945 Requested By: Order Number: [id number] Reading MD: Bianca Kelly Measurements Intervals [place] Rate: 65 P: 96 MS: 0 QRS: -76 QRSD: 200 T: 95 [...] - 145 mmol/L 12/05/2024 4:08 AM CDT [facility] POTASSIUM 5.3(H) 3.5 - 5.1 mmol/L 12/05/2024 4:08 AM CDT [facility] CHLORIDE 96(L) 98 - 107 mmol/L 12/05/2024 4:08 AM CDT [facility] CO2 22 22 - 29 mmol/L 12/05/2024 4:08 AM CDT [facility] CALCIUM 9.5 8.8 - 10.2 mg/dL 12/05/2024 4:08 AM CDT [facility] BUN 45(H) 8 - 23 mg/dL 12/05/2024 4:08 [facility] CREATININE 3.93(H) 0.67 - 1.17 mg/dL 12/05/2024 4:08 AM T [facility] Comment:The GFR result is no t clinically significant on patients <18 or >70 years of age. GLUCOSE 291(H) 74 - 99 mg/dL 12/05/2024 4:08 AM T [facility] GFR 15 mL/min/1. 73 sq meter 12/05/2024 4:08 AM T [facility] Comment:eGFR calculated with 2020 CKD-EPI equation. Vegetarian diet, extremely high or low muscle mass, and may affect results. Cystatin C with Glomerular Filtration Rate is a suitable alternative for these patients. ANION GAP 16 9 - 20 mmol/L 12/05/2024 4:08 AM [facility] Blood Venipuncture / Unknown 12/05/2024 3:27 AM CDT 12/05/2024 3:33 AM CDT us Tigist RUSSELL CHEMISTRY ORDERABLES Final Resu lt [facility] CLIA # [id number] [address] [place] [address] * (ABNORMAL) CBC WITHOUT DIFFERENTIAL (12/04/2024 9:11 PM CDT) WBC 22.6(H) 4.8 - 10.8 K/uL 12/04/2024 9:18 PM T [facility] RBC 3.39(L) 4.60 - 6.20 M/uL 12/04/2024 9:18 PM T [facility] HEMOGLOBIN 10.6(L) 14.0 - 18.0 g/dL 12/04/2024 9:18 PM T [facility] HEMATOCRIT 34.3(L) 41.0 - 53.0 % 12/04/2024 9:18 PM T [facility] MCV 101.2 84.0 - 103.0 fL 12/04/2024 9:18 PM CDT [facility] MCH 31.3 27.0 - 34.0 pg 12/04/2024 9:18 PM CDT [facility] MCHC 30.9 30.0 - 35.0 g/dL 12/04/2024 9:18 PM CDT [facility] PLATELETS 97(L) 140 - 440 K/uL 12/04/2024 9:18 PM CDT [facility] MPV 10.5 8.9 - 12.8 fL 12/04/2024 9:18 PM CDT [facility] RDW 18.4(H) 11.0 - 14.5 % 12/04/2024 9:18 PM CDT [facility] RDW-STDEV 69.1(H) 37.0 - 54.0 fL 12/04/2024 9:18 PM CDT [facility] Blood Venipuncture / Unknown 12/04/2024 9:11 PM CDT 12/04/2024 9:15 PM CDT us Tigist RUSSELL HEMATOLOGY ORDERABLES Final Res ult Performing Organization Address City/State/[facility] Co de Phone Number [facility] CLIA # [id number] [address] [address] * ECHOCARDIOGRAM W/ CONTRAST AGENT (12/04/2024 10:45 AM CDT) EJECTION FRACTION 26 INTERFACE SYSTEM 12/04/2024 8:57 AM CDT Narrative INTERFACE SYSTEM - 12/04/2024 11:13 AM CDT [facility] Cardiovascular Services Echocardiography Laboratory [address] [place] [address] Transthoracic Echocardiography Patient: Nisa Renae Study ID: ECHO COMPLETE - Gender: M : 1945 Age: 79 Room: [facility] Study Date: 12/04/2024 Pt Status: Inpatient Study Time: 08:57:28 AM [facility] #: [id number] Ordering:Tigist Dodson Adult Secondary Education Instructor: Gagandeep Nava [facility] Indications and History: Hypotension or Hemodynamic [...] (H) scot values outside specified reference range. [facility] Echo Labs are accredited with the Intersocietal Accreditation Commission - Echocardiography. Prepared and Electronically Authenticated Conrado Shearer Confirmed 12/04/2024 11:13 Procedure Note Conrado Shearer MD - 12/04/2024 [facility] Echocardiography Laboratory [address] [place] [address] Transthoracic Echocardiography Patient: Nisa Renae Study ID: ECHO COMPLETE- Gender: Manuelito : 1945 Age: 79 Room: [facility] Study Date: 12/04/2024 Pt Status: Inpatient Study Time: 08:57:28 AM CSN #: [id number] Ordering:Tigist Dodson Adult Secondary Education Instructor: Gagandeep Nava [facility] Indications and History: Hypotension or Hemodynamic [...] (H) scot values outside specified reference range. [facility] Echo Labs are accredited with theIntersocietal Accreditation Commission - Echocardiography. Prepared and Electronically Authenticated Conrado Shearer Confirmed 12/04/2024 11:13 Tigist RUSSELL US ORDERABLES Final Result Performing Organization Address [facility] de Phone Number INTERFACE SYSTEM Refer to clinic/hospital department * MRSA PCR RAPID SCREEN (12/04/2024 8:29 AM CDT) MRSA PCR RESULT MRSA not detected MRSA not detected 12/04/2024 10:09 AM CDT [facility] Surveillance ANTERIOR NARES SWAB / Unknown Collection / Unknown 12/04/2024 8:29 AM CDT 12/04/2024 8:43 AM CDT Narrative [facility] - 12/04/2024 10:09 AM CDT This [...] ORDERABL ES Final Result Performing Organization Address [facility] de Phone Number [facility] CLIA # [id number] [id number] [place] [address] * (ABNORMAL) URINALYSIS WITH REFLEX MICROSCOPIC (12/04/2024 8:28 AM CDT) COLOR UA Yellow Pale to Dark Yellow 12/04/2024 8:52 AM CDT [facility] CLARITY UA Cloudy(A) Clear 12/04/2024 8:52 AM CDT [facility] SPECIFIC GRAVITY UA 1.039(H) 1.003 - 1.035 12/04/2024 8:52 AM CDT [facility] PH UA 6.0 5.0 - 8.0 12/04/2024 8:52 AM CDT [facility] LEUKOCYTE ESTERASE UA 3+(A) Negative 12/04/2024 8:52 AM CDT [facility] NITRITE UA Negative Negative 12/04/2024 8:52 AM CDT [facility] PROTEIN UA 3+(A) Negative 12/04/2024 8:52 AM CDT [facility] GLUCOSE UA 1+(A) Negative 12/04/2024 8:52 AM CDT [facility] KETONES UA 1+(A) Negative 12/04/2024 8:52 AM CDT [facility] UROBILINOGEN UA <2.0 <2.0 mg/dL 8:52 AM CDT [facility] BILIRUBIN UA Negative Negative 12/04/2024 8:52 AM CDT [facility] BLOOD UA 3+(A) Negative 12/04/2024 8:52 AM CDT [facility] WBC UA >100(A) 0 - 2 /hpf 12/04/2024 8:52 AM CDT [facility] RBC UA 51-100(A) 0 - 2 /hpf 12/04/2024 8:52 AM CDT [facility] BACTERIA UA 2+(A) Negative /hpf 12/04/2024 8:52 AM CDT [facility] EPITHELIAL CELLS, URINE 0-5 0 - 5 /hpf 12/04/2024 8:52 AM T [facility] Urine URINE SPECIMEN OBTAINED BY CLEAN CATCH PROCEDURE / Unknown Collection / Unknown 12/04/2024 8:28 AM CDT 12/04/2024 8:44 AM CDT us Tigist RUSSELL URINE ORDERABLES Final Result [facility] CLIA # [id number] [facility] [address] * (ABNORMAL) TROPONIN 6 HR, 5TH GEN (12/04/2024 7:50 AM CDT) TROPONIN T, 6 HR 5TH GEN 3,956(HH) <=15 ng/L 12/04/2024 9:04 AM CDT [facility] DELTA 6HR TROPONIN T % -10 See Interp. % 12/04/2024 9:04 AM CDT [facility] Blood Venipuncture / Unknown 12/04/2024 7:50 AM CDT 12/04/2024 8:23 AM CDT Narrative [facility] - 12/04/2024 9:04 AM CDT Troponin elevated. Delta not changing. Tigist RUSSELL CHEMISTRY ORDERABLES Final Resu lt Performing Organization Address [facility]/ZIP Co de Phone Number [facility] CLIA # [id number] [address] [address] [place] [address] * BLOOD CULTURE (12/04/2024 7:50 AM CDT) Only the most recent of2 resultswithin the time period is included. Pathologist [facility] BLOOD CULTURE No growth 12/09/2024 9:31 AM CDT [facility] Blood (Peripheral) Venipuncture / Unknown 12/04/2024 7:50 AM CDT 12/04/2024 8:20 AM CDT Tigist RUSSELL MICROBIOLOGY - GENERAL ORDERABL ES Final Result Performing Organization Address [facility]/ZIP Co de Phone Number [facility] CLIA # [id number] [address] [address] [place] [address] * (ABNORMAL) TROPONIN 2 HR, 5TH GEN (12/04/2024 3:33 AM CDT) TROPONIN T, 2 HR 5TH GEN 4,870(HH) <=15 ng/L 12/04/2024 4:55 AM CDT [facility] DELTA 2HR TROPONIN T % 10 See Interp. % 12/04/2024 4:55 AM CDT [facility] Blood Venipuncture / Unknown 12/04/2024 3:33 AM CDT 12/04/2024 3:37 AM CDT [facility] - 12/04/2024 4:55 AM CDT Troponin elevated. Delta not changing. Tigist RUSSELL CHEMISTRY ORDERABLES Final Resu lt Performing Organization Address [facility]/ZIP Co de Phone Number [facility] CLIA # [id number] [address] [address] [place], [place] [address] * (ABNORMAL) TROPONIN BASELINE, 5TH GEN (12/04/2024 1:57 AM CDT) TROPONIN T, BASELINE 5TH GEN 4,417(HH) <=15 ng/L 12/04/2024 3:01 AM CDT [facility] Blood Venipuncture / Unknown 12/04/2024 1:57 AM CDT 12/04/2024 2:00 AM CDT [facility] - 12/04/2024 3:01 AM CDT Troponin elevated. Tigist RUSSELL CHEMISTRY ORDERABLES Final Resu lt Performing Organization Address [facility]/ZIP Co de Phone Number [facility] CLIA # [id number] [address] [address] [place], [place] [address] * (ABNORMAL) PROCALCITONIN (12/04/2024 1:57 AM CDT) PROCALCITONIN 55.40(H) <=0.08 ng/mL 12/04/2024 2:53 AM CDT [facility] Blood Venipuncture / Unknown 12/04/2024 1:57 AM CDT 12/04/2024 2:00 AM CDT [facility] - 12/04/2024 2:53 AM CDT The utility [...] Tigist RUSSELL CHEMISTRY ORDERABLES [facility] lt [id number] [address] [place] [address] * VANCOMYCIN LEVEL RANDOM (12/04/2024 1:57 AM CDT) [facility] Signature VANCOMYCIN, RANDOM 19.7 5.0 - 50.0 ug/mL 12/04/2024 6:19 AM CDT [facility] Blood Venipuncture / Unknown 12/04/2024 1:57 AM CDT 12/04/2024 2:00 AM CDT [facility] - 12/04/2024 6:19 AM CDT Vancomycin Therapeutic Ranges: Vancomycin Trough: 10 - 20 mcg/mL Vancomycin Peak: 25 - 50 mcg/mL Jim Asif MD CHEMISTRY ORDERABL ES Final Result [facility] JANICE # [id number] [address] [place] [address] [place] [address] * PROCEDURE PHOTOGRAPHS (12/01/2024 10:48 AM CDT) us Provider Scanning PROCEDURE/MINOR SURGICAL ORDER RANDAL Final Result * MS ANESTHESIA BLOCK PB PLACEHOLDER CHARGE (11/29/2024 8:07 [...] Type: Interscalene Laterality: Left Injection technique: Single-shot Doon Identification: ultrasound guided Local injected: Lidocaine 2% [...] ABO GROUP O 11/29/2024 7:18 AM CDT [facility] RH (D) TYPE Positive 11/29/2024 7:18 AM CDT [facility] Blood Venipuncture / Unknown 11/29/2024 6:48 AM CDT 11/29/2024 6:54 AM CDT Klarissa Flowers MD BLOOD BANK ORDERABLES Final Re sult [facility] [employer] [facility] CLIA#[id number] [address] [place] [address], * (ABNORMAL) PROTIME-INR (11/29/2024 6:47 AM CDT) PROTIME 15.9(H) 12.7 - 14.9 Seconds 11/29/2024 7:02 AM CDT [facility] INR 1.2 0.8 - 1.2 11/29/2024 7:02 AM CDT [facility] Blood Venipuncture / Unknown 11/29/2024 6:47 AM CDT 11/29/2024 6:50 AM CDT Narrative [facility] - 11/29/2024 7:02 AM CDT Expected Values for INR: DVT/PE Goal INR 2.5; range 2.0 - 3.0 Valve Replacement Tissue Goal INR 2.5; range 2.0 - 3.0 Valve Replacement Mechanical Goal INR 3.0; range 2.5 - 3.5 POST-MO Goal INR 2.5; range 2.0 - 3.0 or Goal INR 3.0; range 2.5 - 3.5 Atrial Fibrillation Goal INR 2.5; range 2.0 - 3.0 Ischemic Stroke Goal INR 2.5; range 2.0 - 3.0 Klarissa Flowers MD HEMATOLOGY ORDERABLES Final Re sult Performing Organization Address [facility] de Phone Number [facility] [place] CLIA # [id number] [address] [facility] [place] [address] * TYPE AND SCREEN (11/29/2024 6:47 AM CDT) ABO GROUP O 11/29/2024 7:48 AM CDT [facility] RH (D) TYPE Positive 11/29/2024 7:48 AM CDT [facility] ANTIBODY SCREEN Negative 11/29/2024 7:48 AM CDT [facility] Blood Venipuncture / Unknown 11/29/2024 6:47 AM CDT 11/29/2024 6:50 AM CDT Klarissa Flowers MD BLOOD BANK ORDERABLES Edited R esult - Final Performing Organization Address [facility] de Phone Number [facility] [employer] [facility] CLIA#[id number] [address] [place] [address], * US DUPLEX PREOP VESS ASSESS LT (11/12/2024 11:13 AM CDT) Anatomical Region Laterality Modality Lower Extremity, Upper Extremity Ultrasound 11/12/2024 10:2 4 AM CDT Narrative 11/15/2024 11:17 AM CDT [facility] [address] [place] [address] [address] [place] [address] Noninvasive Vascular Lab Upper Extremity Evaluation for Hemodialysis Access Patient: Nisa Renae Study ID: US DUPLEX PREOP Gender: M : 1945 Age: 79 Room: Height: 180cm Weight: 104.3kg BSA: 2.31m^2 Pt status: Outpatient Study Date: 11/12/2024 Study Time: 10:24:48 AM BSA: 2.31m^2 Ordering: Klarissa Flowers MD Interpreting:Janell Melgar Adult Secondary Education Instructor: Melissa Nava RVT Indications: Dx: 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 No [...] evaluation was performed. Image quality was good. [facility] is accredited with the Intersocietal Commission for the Accreditation of Vascular Laboratories (ICAVL) Prepared and Electronically Authenticated Janell Melgar Confirmed 11/15/2024 11:17 Procedure Note Janell Melgar DO - 11/15/2024 [facility] [address] [place] [address] Noninvasive Vascular Lab Upper Extremity Evaluation for Hemodialysis Access Patient: Nisa Renae Study ID: US DUPLEX PREOP Gender: M : 1945 Age: 79 Room: Height: 180cm Weight: 104.3kg BSA: 2.31m^2 Pt status: Outpatient Study Date: 11/12/2024 Study Time: 10:24:48 AM BSA: 2.31m^2 Ordering: Klarissa Flowers MD Interpreting:Janell Melgar Adult Secondary Education Instructor: Melissa Nava RVT Indications: Dx: Benign hypertension with ESRD (end-stage renaldisease) ([facility]) [I12.0, N18.6 (ICD-10-CM)] Summary Impression: 1. No [...] evaluation was performed. Image quality was good. [facility] is accredited withthe [facility] Commission for the Accreditation of Vascular Laboratories (ICAVL) Prepared and Electronically Authenticated RamónJanell Confirmed 11/15/2024 11:17 us Klarissa Flowers MD US ORDERABLES Final Result * MS PROGRAM EVAL IMPLANTABLE IN PERSN DUAL LD PACER (10/26/2024 11:10 AM CDT) Narrative [facility] - 10/26/2024 11:10 AM CDT Kelly Han 10/26/2024 11:10 AM Office Device Check By Vendor Chocolate Temperer Date of Procedure: October 25, 2024 Paperboard Box Maker: [employer] Comments: Office check by [employer] employment representative in conjunction w/ EP office visit. Interrogation reviewed by provider. Please see scan for details. Procedure Note Kelly Han - 10/26/2024 11:10 AM CDT Office Device Check By Vendor Chocolate Temperer Date of Procedure: October 25, 2024 Paperboard Box Maker: [employer] Comments: Office check by [employer] employment representative in conjunction w/ EPoffice visit. Interrogation reviewed by provider. Please see scan for details. us Sotero Alejandro MD CARDIAC SERVICES ORDERABLES Final Result [facility] [address] [facility] [place] [id number] * (ABNORMAL) MICROALBUMIN/CREATININE RATIO, RANDOM UR (03/29/2024 [...] PM CDT Performing Organization Information: Site ID: [place] Name: [email or web address] Address: [id number] [place] [id number] Director: Tawanda Roca MD us Jillian Monge MD URINE ORDERABLES Final Result [facility] * LIPID RFLX (03/29/2024 1:24 AM CDT) CHOLESTEROL 134 <200 mg/dL 03/29/2024 3:43 AM CDT [facility] TRIGLYCERIDE 70 <150 mg/dL 03/29/2024 3:43 AM CDT [facility] HDL 51 40 - 59 mg/dL 03/29/2024 3:43 AM CDT [facility] LDL CALCULATED 69 <100 mg/dL 03/29/2024 3:43 AM CDT [facility] NON-HDL CHOLESTEROL 83 <130 mg/dL 03/29/2024 3:43 AM CDT [facility] Blood Venipuncture / Unknown 03/29/2024 1:24 AM CDT 03/29/2024 1:52 AM CDT [facility] - 03/29/2024 3:43 AM CDT TOTAL CHOLESTEROL [...] MD CHEMISTRY ORDERABLES Final R esult [facility] CLIA # [id number] [address] [place] [address] * (ABNORMAL) HEMOGLOBIN A1C (03/29/2024 1:24 AM CDT) HEMOGLOBIN A1C 7.1(H) <=5.6 % 03/29/2024 12:00 PM CDT [facility] EST. AVG GLUCOSE, A1C 157 mg/dL 03/29/2024 12:00 PM CDT [facility] Blood Venipuncture / Unknown 03/29/2024 1:24 AM CDT 03/29/2024 1:51 AM CDT [facility] - 03/29/2024 12:00 PM CDT HGB A1C INTERPRETATION NORMAL: <5.7% PRE-DIABETES: 5.7 - 6.4% DIABETES: 6.5% OR GREATER Jaciel Yuan MD CHEMISTRY ORDERABLES Final R esult [facility] CLIA # [id number] [id number] [place] [address] from Last 3 Months or Most Recently Relevant to Health Maintenance Insurance MEDICARE PART A AND B [facility] RX GAN PLANS (INTERNAL) [facility] RX [facility] [employer] RX GENERIC COMMERCIAL Commercial * Guarantor: [facility] H (C) Account Type Relation to Patient Date of Phone Billing Address Corporate Other DEFAULT ADDRESS [address] [employer]N [employer] Advance Directives For more information, please contact: [phone] * NO CPR (In Event of Cardiopulmonary [...] Non-Invasive (i.e. BiPAP, CPAP): Yes Care Teams Gaming Director Relationship Specialty Start Date End Date Paula Sandoval MD [address] [place] [phone] PCP - General Family Practice 10/18/24
--- OUTSIDE RECORDS SUMMARY | 2025-01-13 11:15 | XMS_ITS | Clinical Summary ---
Author Organization [facility] Facility Address [address] [address] Care Team Providers Care Adjunct Physical Education Instructor Name Role Phone Alejandro Macias MD Primary Care Provider Allergies Active Allergy [...] Encounters Date Type Department Care Team Description 01/11/2025 Treatment [facility], [facility] [address] [place] [phone] Ro West MD End stage renal disease; Dependence on renal dialysis 01/06/2025 Orders Only [facility], [facility] [address] [place] [phone] Ro West MD 01/04/2025 11:30 AM CDT Procedure visit [facility], [address] [phone] Fabiola Puente NP End stage renal disease (HCC) (Primary Dx) 01/04/2025 Orders Only [facility], [address] [phone] Eufemia Rogel MA 01/04/2025 Treatment [facility] etouches, [facility] [address] [place] [phone] Fabiola Puente NP End stage renal disease; Dependence on renal dialysis 01/04/2025 [facility], [facility] [address] [place] [address] Alta Zengdy 12/30/2024 [facility], [facility] [address] [place] [address] Ro West MD 12/28/2024 [facility], [facility] [address] [place] [address] Ro West MD 12/28/[address] [place] [address], [facility] [address] [place] [address] Marcela Gomez NP End stage renal disease; Dependence on renal dialysis 12/21/2024 TCM in Dialysis Clinic [address] [place] [address], [facility] [address] [place] [address] Marcela Gomez NP 12/21/2024 [facility], [facility] [address] [place] [address] Ro West MD 12/21/[address] [place] [address], [facility] [address] [place] [address] Marcela Gomez NP End stage renal disease; Dependence on renal dialysis 12/14/2024 Orders Only [facility], [facility] [address] [place] [address] Ro West MD 12/14/2024 TCM in Dialysis Clinic [address] [place] [address], [facility] [address] [place] [address] Fabiola Puente NP 12/14/[address] [place] [address], [facility] [address] [place] [address] Fabiola Puente NP End stage renal disease; Dependence on renal dialysis 12/13/2024 Telephone [facility], [facility] [address] [place] [address] Sharee Chu MA 12/02/2024 [facility], [facility] [address] [place] [address] Ro West MD 11/30/[address] [place] [address], [facility] [address] [place] [phone] Fabiola Puente NP End stage renal disease; Dependence on renal dialysis 11/25/2024 Orders Only [facility], [facility] [address] [place] [phone] Ro West MD 11/23/[address] [facility], [facility] [address] [place] [address] Fabiola Puente NP End stage renal disease; Dependence on renal dialysis 11/18/2024 [facility], [facility] [address] [place] [address] Ro West MD 11/18/[address] [place] [address], [facility] [address] [place] [address] Ro West MD End stage renal disease; Dependence on renal dialysis 11/11/2024 [facility], [facility] [address] [place] [address] Ro West MD 11/09/[address] [place] [address], [facility] [address] [place] [address] Marcela Gomez NP End stage renal disease; Dependence on renal dialysis 11/04/2024 [facility], [facility] [address] [place] [phone] Ro West MD 11/02/2024 Treatment [facility], [facility] [address] [place] [phone] Fabiola Puente NP End stage renal disease; Dependence on renal dialysis 10/28/2024 Orders Only [facility], [facility] [address] [place] [phone] Ro West MD 10/26/2024 Treatment [facility], [facility] [address] [place] [phone] Marcela Gomez NP End stage renal disease; Dependence on renal dialysis 10/21/2024 Orders Only [facility], [facility] [address] [place] [phone] Ro West MD from Last 3 Months [...] included. Hemoglobin 9.4(L) 14.0 - 18.0 g/dL [facility] Hemoglobin x 3 28.2(L) 42.0 - 54.0 % [facility] 01/06/2025 01/07/2025 10: 46 AM SIRIAT Narrative [facility] - 01/07/2025 Unless otherwise specified, test(s) performed at: [facility], [address] [place] [address] TANKROOM TENDER: Fab French M.D. For any questions, please call customer service at FREQUENCY:OTHER Resulting Agency Comment Specimen source: Blood us Ro West MD LAB BLOOD ORDERABLES Final Re sult Performing Organization Address [facility] de Phone Number [facility] See order comments or contact performing lab Unknown, [place] * HD KINETICS (12/30/2024) Only the most recent of3 resultswithin the time period is included. % Urea Reduction 72 65 - 80 % [facility] 12/30/2024 01/01/2025 11: 43 AM CDT Narrative Resulting Agency Comment Specimen source: Plasma us Ro West MD LAB BLOOD ORDERABLES Final Re sult Performing Organization Address [facility] de Phone Number [facility] See order comments or contact performing lab Unknown, [place] * POST CHEMISTRY (12/30/2024) Only the most recent of3 resultswithin the time period is included. BUN Post Dialysis 10 6 - 19 mg/dL [facility] 12/30/2024 01/01/2025 11: 43 AM CDT Narrative [facility] - 01/01/2025 Unless otherwise specified, test(s) performed at: [facility], [address] [place] [address] TANKROOM TENDER: Fab French M.D. For any questions, please call customer service at FREQUENCY:OTHER Resulting Agency Comment Specimen source: Plasma us Ro West MD LAB BLOOD ORDERABLES Final Re sult Performing Organization Address [facility] de Phone Number [facility] See order comments or contact performing lab Unknown, [place] * (ABNORMAL) [facility] (12/30/2024) Only the most recent of6 resultswithin the time period is included. BUN 36(H) 6 - 19 mg/dL [facility] 12/30/2024 12/31/2024 9:5 9 AM CDT Narrative [facility] - 12/31/2024 Unless otherwise specified, test(s) performed at: [facility], [address] [place] [address] TANKROOM TENDER: Fab French M.D. For any questions, please call customer service at FREQUENCY:OTHER Resulting Agency Comment Specimen source: Serum Ro West MD LAB BLOOD ORDERABLES Final Re sult Performing Organization Address City/[facility]/ZIP Co de Phone Number [facility] See order comments or contact performing lab Unknown, [place] * [facility] Lab Results (12/30/2024) Only the most recent of3 resultswithin the time period is included. Pathologist [facility] eKt/V Gotch 1.24 [facility] e Center nPCR_HD 0.67 [facility] eKdrt/V 1.24 [facility] spKt/V Gotch 1.42 [facility] Center PCR 50.18 [facility] spKt/V (Daugirdas II) 1.42 [facility] eKt/V (Tattersall) 1.24 [facility] WSTDKT/V 2.4 [facility] eNPCR 0.62 [facility] 12/30/2024 12/30/2024 [facility] Ordering Provider LAB BLOOD ORDERABLES Final Result Performing Organization Address City/[facility] Co de Phone Number [facility] Contact Performing lab Unknown, [place] * IMMUNO CHEMISTRY (12/28/2024) Only the most recent of3 resultswithin the time period is included. Pathologist [facility] Hep B Surface Ag Negative Negative [facility] 12/28/2024 12/29/2024 10: 51 AM CDT Narrative Resulting Agency Comment Specimen source: Serum Ro West MD LAB BLOOD ORDERABLES Final Re sult [facility] See order comments or contact performing lab Unknown, [place] * (ABNORMAL) SPECIAL CHEMISTRY (11/25/2024) Hemoglobin A1C 7.1(H) 4.8 - 5.9 % [facility] 11/25/2024 11/26/2024 10: 21 AM CDT Narrative [facility] - 11/26/2024 Unless otherwise specified, test(s) performed at: [facility] [place] [id number] TANKROOM TENDER: Fab French M.D. For any questions, please call customer service at FREQUENCY:MONTHLY Resulting Agency Comment Specimen source: Blood Ro West MD LAB BLOOD BANK TEST ORDERABLE S Final Result [facility] See order comments or contact performing lab Unknown, [place] from Last 3 Months Insurance [place] [employer] [employer] 1,2,3 (VACCN) Care Teams Adjunct Physical Education Instructor Relationship Specialty Start Date End Date Alejandro Macias MD [address] [place] [place] [address] PCP - General Family Medicine 12/15/18
--- OUTSIDE RECORDS SUMMARY | 2025-01-13 11:15 | XMS_ITS | Encounter Summary ---
Author Organization [facility] Address [address] [place] [address] Care Team Providers Care Metal Door Assembler Name Role Phone Paula Sandoval MD Primary Care Provider + [phone] Reason for Visit * Reason Onset Date Comments Question 01/10/2025 Encounter Details Date Type Department Care Team (Late st Contact Info) Description 01/10/2025 Telephone [facility] [address] [facility] [address] [place] [address] Sotero Alejandro MD [address] [facility] [address] [place] [address] Question Social History Tobacco Use Types [...] Telephone Encounter - Cody Baltazar - 01/10/2025 9:02 AM CDT Spoke with Sen[facility] via phone. Noted the transmission today was successfuly, noted GENA/WOODWORKING BELT SANDER triggered 12-03-2024. Noted that in clinic appt today senior financial reporting analyst be cancelled due to today's successful remote transmission. Noted we will send to Dr. Alejandro's team and they will be reaching out to schedule the gen change. documented in this encounter Plan of Treatment Upcoming Encounters Date Type Department Care Team (Latest Contact Info) Description 5 11:45 AM CDT Appointment [facility] Laboratory Services [address] [place] [address] 5 1:44 PM CDT Hospital Encounter [facility] Cardiac Senior Systems Developer [address] [place] [address] Sotero Alejandro MD [address] [place] [phone] Dilated cardiomyopathy (CMS/HCC) 5 1:44 PM CDT - 5 2:59 PM CDT Surgery [facility] Cardiac Senior Systems Developer [address] [place] [address] Sotero Alejandro MD [address] [place] [phone] Pacemaker Upgrade to Biventricular ICD w Anesthesia 5 11:00 AM CDT Office Visit [facility] [address] [place] [address] Lyndsey Dorsey, MARCELLO [address], [address] [place] [address] 5 2:00 PM CDT Hospital Encounter [facility] Endoscopy [address] [place] [address] Clinton Ascencio, DO [address] [place] [phone] 5 2:00 PM CDT - 5 2:20 PM CDT Surgery [facility]oscopy [address] [place] [phone] Clinton Ascencio, DO [address] [facility] [address] [place] [phone] ESOPHAGOGASTRODUODENOSCOPY 5 11:30 AM CDT Office Visit [facility] Vascular Surgery [place] [address] [place] [address] Klarissa Flowers MD [address] [place] [address] Scheduled Procedures Name Priority Associated Diagnoses Date/Ti me ESOPHAGOGASTRODUODENOSCOPY gastric ulcer 02/07/2025 2:00 PM CDT documented as of this encounter Visit Diagnoses Not on filedocumented in this encounter Care Teams Metal Door Assembler Relationship Specialty Start Date End Date Paula Sandoval MD [address] [place] [phone] PCP - General Family Practice 10/18/24 documented as of this encounter
--- OUTSIDE RECORDS SUMMARY | 2025-01-13 11:15 | XMS_ITS | Encounter Summary ---
Author Organization [facility] Address [address] [place] [address] Care Team Providers Care Sash Finisher Name Role Phone Paula Sandoval MD Primary Care Provider + [phone] Encounter Details Date Type Department Care Team [...] Info) Description 5 11:45 AM CDT Appointment [facility] [address] [place] [phone] 5 1:44 PM CDT Hospital Encounter [facility] Cardiac Hospice Volunteer Coordinator [address] [place] [address] Sotero Alejandro MD [address] [place] [address] Dilated cardiomyopathy (CMS/HCC) 5 1:44 PM CDT - 5 2:59 PM CDT Surgery [facility] Cardiac Hospice Volunteer Coordinator [address] [place] [address] Sotero Alejandro MD [address] [place] [address] Pacemaker Upgrade to Biventricular ICD w Anesthesia 5 11:00 AM CDT Office Visit [facility] [address] [place] [address] Lyndsey Dorsey, MARCELLO [address], [address] [place] [address] 5 2:00 PM CDT Hospital Encounter [facility] Endoscopy [address] [place] [address] Clinton Ascencio, DO [address] [place] [address] 5 2:00 PM CDT - 5 2:20 PM CDT Surgery [facility] Endoscopy [address] [place] [address] Clinton Ascencio, DO [address] [place] [phone] ESOPHAGOGASTRODUODENOSCOPY 5 11:30 AM CDT Office Visit [facility] Vascular Surgery [place] [address] [place] [address] Klarissa Flowers MD [address] [place] [address] Scheduled Procedures Name Priority Associated Diagnoses Date/Ti me ESOPHAGOGASTRODUODENOSCOPY gastric ulcer 02/07/2025 2:00 PM CDT documented as of this encounter Visit Diagnoses Not on filedocumented in this encounter Care Teams Sash Finisher Relationship Specialty Start Date End Date Paula Sandoval MD [address] [place] [phone] PCP - General Family Practice 10/18/24 documented as of this encounter
--- OUTSIDE RECORDS SUMMARY | 2025-01-13 11:15 | XMS_ITS | Encounter Summary ---
Author Organization [facility] Address [address] [place] [address] Care Team Providers Care Executive Sales Assistant Name Role Phone Paula Sandoval MD Primary Care Provider + [phone] Reason for Visit * Reason Onset Date Comments Question 01/06/2025 Returning call about the carelink download 01/06 Encounter Details Date Type Department Care Team (Late st Contact Info) Description 01/06/2025 Telephone [facility] [address] [facility] [address] [place] [address] Sotero Alejandro MD [address] [facility] [address] [place] [address] Question; Returning call about the carelink [...] we have rcvd the transfer in, per [employer] website, from [facility]. However, the last transmission is noted from [...] caller to Amado, thank you. Milena Serra, [facility], Advanced PSR * Telephone Encounter - Cody Baltazar - 01/06/2025 1:09 PM CDT Left VM for patient to please return call, so we can schedule device check. Left VM @ [facility] per continuity of care, requesting follow up phone call for carelink transfer request. documented in this encounter Plan of Treatment Upcoming Encounters Date Type Department Care Team (Latest Contact Info) Description 5 11:45 AM CDT Appointment [facility] Laboratory Services [address] [facility] 2 [place] [address] 5 1:44 PM CDT Hospital Encounter [facility] Cardiac Transition Program Manager [address] [place] [address] Sotero Alejandro MD [address] [place] [phone] Dilated cardiomyopathy (CMS/HCC) 5 1:44 PM CDT - 5 2:59 PM CDT Surgery [facility] Cardiac Transition Program Manager [address] [place] [address] Sotero Alejandro MD [address] [place] [address] Pacemaker Upgrade to Biventricular ICD w Anesthesia 5 11:00 AM CDT Office Visit [facility] [address] [place] [address] Lyndsey Dorsey, MARCELLO [address], [address] [place] [address] 5 2:00 PM CDT Hospital Encounter [facility] Endoscopy [address] [place] [address] Clinton Ascencio, DO [address] [place] [address] 5 2:00 PM CDT - 5 2:20 PM CDT Surgery [facility] Endoscopy [address] [place] [address] Clinton Ascencio, DO [address] [place] [address] ESOPHAGOGASTRODUODENOSCOPY 11:30 AM CDT Office Visit [facility] Vascular Surgery [place] [address] [place] [address] Klarissa Flowers MD [address] [place] [address] Scheduled Procedures Name Priority Associated Diagnoses Date/Ti me ESOPHAGOGASTRODUODENOSCOPY gastric ulcer 02/07/2025 2:00 PM CDT documented as of this encounter Visit Diagnoses Not on filedocumented in this encounter Care Teams Executive Sales Assistant Relationship Specialty Start Date End Date Paula Sandoval MD [address] [place] [phone] PCP - General Family Practice 10/18/24 documented as of this encounter
--- OUTSIDE RECORDS SUMMARY | 2025-01-13 11:15 | XMS_ITS | Encounter Summary ---
Author Organization [facility] Address [address] [place] [address] Care Team Providers Care Refund Clerk Name Role Phone Paula Sandoval MD Primary Care Provider + [phone] Reason for Visit * Reason Onset Date Comments Pacemaker has been transferred 01/07/2025 Encounter Details Date Type Department Care Team (Late st Contact Info) Description 01/07/2025 Telephone [facility] [address] [facility] [address] [place] [address] Sotero Alejandro MD [address] [facility] [address] [place] [address] Pacemaker has been transferred Social History [...] Dr Alejandro Person Calling: Senia Phone #: [phone] Relationship to patient: , on PHI Caller states she spoke with [employer] this morning, states pacemaker was transferred last week from [facility] to [facility]. She is asking for a call back [...] Info) Description 5 11:45 AM CDT Appointment [facility] Laboratory Services [address] [facility] [place] [address] 5 1:44 PM CDT Hospital Encounter [facility] Cardiac Copy Camera Operator [address] [facility] [place] [address] Sotero Alejandro MD [address] [facility] [address] [place] [address] Dilated cardiomyopathy (CMS/HCC) 5 1:44 PM CDT - 5 2:[address] [facility] Cardiac Copy Camera Operator [address] [place] [address] Sotero Alejandro MD [address] [place] [address] Pacemaker Upgrade to Biventricular ICD w Anesthesia 5 11:00 AM CDT Office Visit [facility] [address] [place] [address] Lyndsey Dorsey NP [address], [address] [place] [address] 5 2:00 PM CDT Hospital Encounter [facility] Endoscopy [address] [place] [address] Clinton Ascencio, DO [address] [address] 5 2:00 PM CDT - 5 2:[address] [facility] Endoscopy [address] [place] [address] Clinton Ascencio, DO 5 [facility] [address] [place] [address] ESOPHAGOGASTRODUODENOSCOPY 5 11:30 AM CDT Office Visit [facility] Vascular Surgery [place] [address] [place] [address] Klarissa Flowers MD [address] [place] [address] Scheduled Procedures Name Priority Associated Diagnoses Date/Ti me ESOPHAGOGASTRODUODENOSCOPY gastric ulcer 02/07/2025 2:00 PM CDT documented as of this encounter Visit Diagnoses Not on filedocumented in this encounter Care Teams Refund Clerk Relationship Specialty Start Date End Date Paula Sandoval MD [address] [place] [phone] PCP - General Family Practice 10/18/24 documented as of this encounter
--- OUTSIDE RECORDS SUMMARY | 2025-01-13 11:15 | XMS_ITS | Encounter Summary ---
Author Organization [facility] Address [address] [place] [address] Care Team Providers Care Jacquard Fixer Name Role Phone Paula Sandoval MD Primary Care Provider + [phone] Encounter Details Date Type Department Care Team [...] Info) Description 5 11:[address] [facility] [address] [place] [phone] 5 1:44 PM CDT Hospital Encounter Cardiac Rural Health Consultant [address] [place] [address] Sotero Alejandro MD [address] [place] [address] Dilated cardiomyopathy (CMS/HCC) 5 1:44 PM CDT - 5 2:59 PM CDT Surgery Cardiac [facility] [address] [place] [address] Sotero Alejandro MD [address] [place] [address] Pacemaker Upgrade to Biventricular ICD w Anesthesia 5 11:00 AM CDT Office Visit [facility] [address] [place] [address] Lyndsey Dorsey, MARCELLO [address], [address] [place] [address] 5 2:00 PM CDT Hospital Encounter Endoscopy [address] [place] [address] Clinton Ascencio, DO [address] [place] [phone] 5 2:00 PM CDT - 5 2:20 PM CDT Surgery Endoscopy [address] [place] [address] Clinton Ascencio, DO [address] [place] [phone] ESOPHAGOGASTRODUODENOSCOPY 5 11:30 AM CDT Office Visit [facility] Vascular Surgery [place] [address] [place] [address] Klarissa Flowers MD [address] [place] [address] Scheduled Procedures Name Priority Associated Diagnoses Date/Ti me ESOPHAGOGASTRODUODENOSCOPY gastric ulcer 02/07/2025 2:00 PM CDT documented as of this encounter Visit Diagnoses Not on filedocumented in this encounter Care Teams Jacquard Fixer Relationship Specialty Start Date End Date Paula Sandoval MD [address] [place] [phone] PCP - General Family Practice 10/18/24 documented as of this encounter
--- OUTSIDE RECORDS SUMMARY | 2025-01-13 11:15 | XMS_ITS ---
Author Organization [facility] Address [address] [facility] [address] [place] [address] Phone Care Team Providers Care Group Sales Manager Name Role Phone Paula Sandoval MD Primary Care Provider Active Problems Problem Noted Date Diagnosed Date [...] lobe of lung 03/29/2024 Lesion of right jena kidney 03/29/2024 Acute hypoxic respiratory failure 03/29/2024 [...]
--- NOTE | 2025-01-13 11:16 | ECG_ITS ---
[facility] Date: 2025-01-13 Pat Name: Valente Renae Department: Room: Gender: Male Patient Observation Assistant: : 1945 Requested By: Kiana Cain Order Number: [id number] Helen MD: Miguel Jin M.D. Measurements Intervals Bliss Rate: 65 P: 0 IN: 0 QRS: -69 QRSD: 200 T: 75 QT: 491 QTc: 511 Interpretive Statements VENTRICULAR PACED RHYTHM Compared to ECG 01/10/2025 12:21:10 Sinus rhythm no longer present Electronically Signed On 01-14-2025 18:53:38 CDT by Davin [email or web address]
--- OUTSIDE RECORDS SUMMARY | 2025-01-13 11:16 | XMS_ITS | Encounter Summary ---
Author Organization [facility] Address [address] [place] [address] Care Team Providers Care Academic Affairs Director Name Role Phone Paula Sandoval MD Primary Care Provider + [phone] Encounter Details Date Type Department Care Team (Late st Contact Info) Description 01/07/2025 Abstract [facility] Cancer and Hematology [address] [address] [address] [place] [address] Umm Dotson, [address] [place] [address] Social History Tobacco Use Types [...] Department Care Team (Latest Contact Info) Description 11:45 AM CDT Appointment [facility] Laboratory Services [address] [facility] [address] [place] [phone] 5 1:44 PM CDT Hospital Encounter [facility] Cardiac Repair Armature Winder Helper [address] [place] [phone] Sotero Alejandro MD [address] [place] [address] Dilated cardiomyopathy (CMS/HCC) 5 1:44 PM CDT - 5 2:59 PM CDT Surgery [facility] Cardiac Repair Armature Winder Helper [address] [place] [address] Sotero Alejandro MD [address] [place] [address] Pacemaker Upgrade to Biventricular ICD w Anesthesia 5 11:00 AM CDT Office Visit [facility] [address] [place] [address] Lyndsey Dorsey, MARCELLO [address], [address] [place] [address] 5 2:00 PM CDT Hospital Encounter [facility] Endoscopy [address] [place] [address] Clinton Ascencio, [address] [place] [address] 5 2:00 PM CDT - 5 2:20 PM CDT Surgery [facility] Endoscopy [address] [place] [address] Clinton Ascencio DO [address] [place] [address] ESOPHAGOGASTRODUODENOSCOPY 11:30 AM CDT Office Visit [facility] Vascular Surgery [place] [address] [place] [address] Klarissa Flowers MD [address] [place] [address] Scheduled Procedures Name Priority Associated Diagnoses Date/Ti me ESOPHAGOGASTRODUODENOSCOPY gastric ulcer 02/07/2025 2:00 PM CDT documented as of this encounter Visit Diagnoses Not on filedocumented in this encounter Care Teams Academic Affairs Director Relationship Specialty Start Date End Date Paula Sandoval MD [address] [place] [phone] PCP - General Family Practice 10/18/24 documented as of this encounter
--- OUTSIDE RECORDS SUMMARY | 2025-01-13 11:16 | XMS_ITS | Patient Health Record ---
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) Active confirmed Problem Anemia in chronic kidney disease (595835809) 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) Active confirmed Problem Type II diabetes mellitus without complication (854304788) Type 2 diabetes mellitus without complications (E11.9) Active confirmed Problem Chronic kidney disease due to hypertension (963466239145310) Hypertensive chronic kidney disease with stage 1 through stage 4 chronic kidney disease, or unspecified chronic kidney disease (I12.9) Active confirmed Problem Chronic kidney disease stage 4 (841006582) Chronic kidney disease, stage 4 (severe) (N18.4) Active confirmed Problem Secondary hyperparathyroidism of renal origin (91737888) Secondary hyperparathyroidism of renal origin (N25.81) Active confirmed Problem Essential hypertension (54769062) HTN (hypertension), benign (I10) Active confirmed Problem Chronic kidney disease stage 4 (666049259) CKD (chronic kidney disease), stage IV (N18.4) Active confirmed Problem Hyperparathyroidism (17870939) Hyperparathyroidism (E21.3) Active confirmed Problem Benign hypertension (05202038) Hypertension, benign (I10) Active confirmed Problem Chronic lymphoid leukemia, disease (70273930) CLL (chronic lymphocytic leukemia) (C91.10) Active confirmed Problem Chronic kidney disease stage 4 (276861560) Chronic kidney disease, stage IV (severe) (N18.4) Active confirmed Problem Benign prostatic hypertrophy with outflow obstruction (078632281) BPH NOS w ur obs/LUTS (N40.1) Active confirmed Problem Chronic kidney disease stage 3A (disorder) (941773023) Chronic kidney disease, stage 3a (N18.31) Active [...] Encounters Encounter Location Date Provider Diagnosis [facility] Nephrology [address] [place] [address] 2024 Tito Leone Chronic kidney disea se, [...] complications E11.9 and Former smoker Z87.891 [facility]phrology [address] [place] [address] 02/03/2024 Sally Haney Hypertensive chronic kidney disease with stage 1 through stage 4 chronic kidney disease, or unspecified chronic kidney disease I12.9 ; Chronic kidney disease, stage IV (severe) N18.4 ; 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 ; Non-nephrotic range proteinuria R80.9 ; Asymptomatic hyperuricemia E79.0 and Secondary hyperparathyroidism of renal origin N25.81 [facility] Nephrology [address] [place] [address] 03/09/2024 Tito Leone [facility] [address] [place] [address] Dr Arroy[address] 1A[address] [place] [address] 07/16/2024 Tito Leone [facility] [address] [place] [address] Dr [address] [place] [address] 07/19/2024 Tito Leone Assessments Encounter Date Diagnosis [...] up in 3 months with labs at [facility] BMP, mag, uric acid, phos, PTH, hgb, [...] Name Order Date Basic Metabolic Panel (BMP) 52000 2023 Hemoglobin 27446 09/30/2023 Magnesium (B) 06313 09/30/2023 Phosphorus (B) 86131 09/30/2023 Protein (U) Random 16443 09/30/2023 Uric Acid (B) 99893 09/30/2023 Creatinine (U) 01828 09/30/2023 UA Reflex Micro, Reflex Cult 90119, 8101 5, 10263 09/30/2023 PTH Intact 73008 09/30/2023 Basic Metabolic Panel (BMP) 99949 2020 Phosphorus (B) 92796 12/07/2020 PTH Intact 74372 12/07/2020 Basic Metabolic Panel (BMP) 96019 2022 Ferritin 79739 06/18/2023 Hemoglobin 63473 06/18/2023 Iron Binding Capacity Total 78859 2022 Iron Level 04905 06/18/2023 Magnesium (B) 10812 06/18/2023 Phosphorus (B) 87096 06/18/2023 Protein (U) Random 97388 06/18/2023 Uric Acid (B) 51653 06/18/2023 Creatinine (U) 88705 06/18/2023 UA Reflex Micro, Reflex Cult 35374, 8101 5, 40696 06/18/2023 PTH Intact 03788 06/18/2023 Albumin 00395 02/03/2024 Basic Metabolic Panel (BMP) 45080 2023 Ferritin 57898 02/03/2024 Hemoglobin 83357 02/03/2024 Iron Binding Capacity Total 99625 2023 Iron Level 02930 02/03/2024 Magnesium (B) 47592 02/03/2024 Phosphorus (B) 40111 02/03/2024 Protein (U) Random 83082 02/03/2024 Uric Acid (B) 50752 02/03/2024 Vitamin D Total (B) 67349 02/03/2024 Creatinine (U) 55180 02/03/2024 UA Reflex Micro, Reflex Cult 97982, 8101 5, 33438 02/03/2024 PTH Intact 08135 02/03/2024 % Iron Saturation (Fe & TIBC)--81983,835 50 02/03/2024 Future Test Test Name Order Date Basic Metabolic Panel (BMP) 90304 2023 CBC w\ Auto Diff 86386 06/17/2024 Ferritin 46957 06/17/2024 Hemoglobin 78992 06/17/2024 Magnesium (B) 14581 06/17/2024 Phosphorus (B) 06666 06/17/2024 Protein (U) Random 89133 06/17/2024 Uric Acid (B) 32137 06/17/2024 Microalbumin (U) Random 58387 06/17/2024 Creatinine (U) 09935 06/17/2024 UA Reflex Micro, Reflex Cult 40317, 8101 5, 14883 06/17/2024 PTH Intact 87270 06/17/2024 % Iron Saturation (Fe & TIBC)--84375,835 50 06/17/2024 Insurance Providers Payer Name Payer Address Payer Phone Subscriber Number Group Number Insured Name Patient Relationship to Insured Coverage Start Date Coverage End Date [employer] [address] [place] [address] [id number] Valente Renae Self - patient is the [...]
--- OUTSIDE RECORDS SUMMARY | 2025-01-13 11:16 | XMS_ITS | Encounter Summary ---
Author Organization [facility] Address [address] [place] [address] Care Team Providers Care Talent Acquisition Coordinator Name Role Phone Paula Sandoval MD Primary Care Provider + [phone] Encounter Details Date Type Department Care Team (Late st Contact Info) Description 01/10/2025 Specialty Pharmacy [facility] [address] [place] [address] Wendi Bauman, PHARMACIST Social History [...] Contact Info) Description 11:45 AM CDT Appointment [facility] Laboratory Services [address] [facility] 2 [place] [address] [phone] 1:44 PM CDT Hospital Encounter [facility] Cardiac Crayon Molding Machine Operator [address] [place] [address] Sotero Alejandro MD [address] [place] [address] Dilated cardiomyopathy (CMS/HCC) 5 1:44 PM CDT - 5 2:59 PM CDT Surgery [facility] Cardiac Crayon Molding Machine Operator [address] [place] [address] Sotero Alejandro MD [address] [place] [address] Pacemaker Upgrade to Biventricular ICD w Anesthesia 5 11:00 AM CDT Office Visit [facility] [address] [place] [address] Lyndsey Dorsey, MARCELLO [address], [address] [place] [address] 5 2:00 PM CDT Hospital [facility] Endoscopy [address] [place] [address] Clinton Ascencio, DO [address] [place] [address] 5 2:00 PM CDT - 5 2:20 PM CDT Surgery [facility] Endoscopy [address] [place] [address] Clinton Ascencio, DO [address] [place] [address] ESOPHAGOGASTRODUODENOSCOPY 11:30 AM CDT Office Visit [facility] Vascular Surgery [place] [address] [place] [address] Klarissa Flowers MD [address] [place] [address] Scheduled Procedures Name Priority Associated Diagnoses Date/Ti me ESOPHAGOGASTRODUODENOSCOPY gastric ulcer 02/07/2025 2:00 PM CDT documented as of this encounter Visit Diagnoses Not on filedocumented in this encounter Care Teams Talent Acquisition Coordinator Relationship Specialty Start Date End Date Paula Sandoval MD [address] [place] [address] PCP - General Family Practice 10/18/24 documented as of this encounter
--- OUTSIDE RECORDS SUMMARY | 2025-01-13 11:16 | XMS_ITS | Data Portability ---
Author Organization PETER Hayes [facility], [facility], [facility] Address [address] [place] [address] Assessment Encounter Date Assessment Date Assessment LastModified [...] CoV 2 RNA, QL, nasopharynx 2022 023 [facility] ([facility]), [address], [place], [address], 3 13:21:58 SARS CoV 2 RNA (COVID-19), QL, pharmacist aide-PCR, respiratory specimen 2022 023 [place] [facility], [address] [place] [address], [facility] [address] [place], [address], 08:30:00 Referral None recorded. Procedures None recorded. Surgeries None recorded. Imaging None recorded. Medication Orders doxycycline hyclate [address] capsule [address] [facility], [address], [place], [address], 5 13:29:23 montelukast 10 mg tablet [address] [facility], [address], [place], [address], 4 13:02:33 ondansetron HCl 4 mg tablet [address] [facility], [address], [place], [address], 4 12:17:46 Paxlovid 300 mg (150 mg x 2)-100 mg tablets in a dose pack [address] [facility], [address], [place], [address], 12:17:59 Patient TargetsNo targets recorded. Patient Instructions Encounter Date Encounter Id Patient Instructions Last Modified By Organization Details Last Modified Time 03/26/2024 [id number] Call or return for questions or concerns. Not available 03/26/2024 13:02:26 07/03/2024 [id number] Call or return for questions or concerns. [...] the [facility] o[facility] s websi te: www.Zodio uestD iagno stics .com/ Covid 19. For [...] on COVID -19 vacci elly. Not Available [facility] [address], [place], [address], 03/19/2023 08:30:00 03/17/20 23 03/17/2023 SARS CoV 2 RNA, QL, nasop haryn x COVID negati ve Not Available [facility] ([facility]) [address] [place], [address], 03/17/2023 12:49:58 Result Notes None recorded. Problems Name Problem SNOMED Code Status Onset Date Resolution Date Notes Provider Name and Address Organization Details Recorded Time Open heart surgery 3904838 Active 2020 Open heart 4-bypass G[address] Dr Jean; 05/10/2021 2:25PM by Bernadette Bonilla, RN, Office Visit; Promoted; acuity set as *; [facility] Available [facility] 03:16:24 Cardiac pacemaker in situ 578148312 Active 2020 [facility] CARDIAC PACEMAKER; Recorded 05/10/2021 2:25PM by Bernadette Bonilla RN, Office Visit; Promoted; acuity set as *; Not Available [facility] 3 03:16:27 Leukemia 62758601 Active 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 Mann; 05/10/2021 2:25PM by Bernadette Bonilla, RN, Office Visit; Promoted; acuity set as *; Not Available [facility] 3 03:16:30 Benign essential hypertens ion 1366800 Active 2020 Hypertensi on; 05/10/2021 2:25PM by Bernadette Bonilla RN, Office Visit; Promoted; acuity set as *; Not Available [facility] 3 03:16:35 Type 2 diabetes mellitus without complicat ion 118975993 Active 2020 Non-Insuli n Dependent Diabetes Mellitus; pt test QID; 05/10/2021 2:25PM by Bernadette Bonilla RN, Office Visit; Promoted; acuity set as *; Not Available [facility] 3 03:16:37 Problem Notes None recorded. Medical Equipment None Reported. Allergies Allergen ID Allergen Name Allergen Category Reaction Reaction Severity Criticality Documentation Date Start Date Code Code System Note Provider Name and Address Organization Details Recorded Time 15970 iodine medicatio n Not available Not available Not available 01/18/2023 5933 RxNorm Comme nt: Recor ded 05/10 2:25P M by Ryan Bonilla RN, Offic e Visit ; Promo emmanuel; Signi kalin ce: *; Reaso n: Drug aller gy; ; Not Available [facility] 3 02:24:23 80861 Uloric medicatio n hives Not available Not available 01/18/2023 29006 6 RxNorm React ion: Hives ; Comme nt: Recor ded 05/10 2:25P M by Ryan Bonilla RN, Offic e Visit ; Promo emmanuel; Signi ficloren ce: *; Reaso n: Drug aller gy; ; Not Available [facility] 3 02:24:23 40580 allopurin ol medicatio n abdominal pain Not available Not available 01/18/2023 519 RxNorm React ion: Abdom inal pain, Hives ; Comme nt: Recor ded 05/10 2:25P M by Ryan Bonilla RN, Offic e Visit ; Promo emmanuel; Signi kalin ce: *; Reaso n: Drug aller gy; ; Not Available [facility] 3 02:24:23 65171 Flomax medicatio n other Not available Not available 01/18/2023 53528 3 RxNorm React ion: Blood disor luz marina; Comme nt: Recor ded 05/10 2:25P M by Ryan Bonilla RN, Offic e Visit ; Promo emmanuel; Signi ficloren ce: *; Reaso n: Drug aller gy; ; Not Available [facility] 3 02:24:23 94256 Levaquin medicatio n hallucina tions Not available Not available 01/18/2023 73487 2 RxNorm React ion: demen tia, confu garfield, hallu cinat ions, agita tion; Comme nt: Recor ded 05/10 2:25P M by Ryan Bonilla RN, Offic e Visit ; Promo emmanuel; Signi fican ce: *; Reaso n: Drug aller gy; ; Not Available [facility] 3 02:24:23 83060 Seroquel medicatio n hallucina tions Not available Not available 01/18/2023 96726 RxNorm React ion: hallu cinat ions; Comme nt: Recor ded 05/10 2:25P M by Ryan Bonilla RN, Offic e Visit ; Promo emmanuel; Signsusan gagnon ce: *; Reaso n: Drug aller gy; ; Not Available [facility] 3 02:24:23 Medications Name Sig Start [...] minutes x 3 prn 2019 active VO JR/[facility] pharmacy ; Recorded 01/20/20 21 8:38AM [...] Updated DateTime 5 180.34 cm 32.1 kg/m2 145171. 05 g 98.4 [degF] 77 /min 93 % 93 % 140/62 mm[Hg] Sherin Jama [facility] 5 12:50:20 Date Recorded Body height Body mass index (BMI) Body weight Oxygen saturation Oxygen saturation in Arterial blood by Pulse oximetry Heart rate Respiratory rate Body temperature Provider Name and Address Organization Details Last Updated DateTime 3 177.8 cm 35.7 kg/m2 929037. 5 g 98 % 98 % 94 /min 20 /min 98.2 [degF] [facility] [address] [place], [address], [facility] 3 12:51:23 Date Recorded Body weight Body mass index (BMI) Body height Body temperature Oxygen saturation Oxygen saturation in Arterial blood by Pulse oximetry Heart rate Systolic And Diastolic Provider Name and Address Organization Details Last Updated DateTime 4 087062. 13 g 34.2 kg/m2 180.34 cm 98 [degF] 95 % 95 % 81 /min 132/58 mm[Hg] Sherin Jama [facility] 4 12:22:13 Social History None recorded. Functional Status None recorded. Mental Status None recorded. Family History Nothing Reported. Medical History No medical history recorded. Immunizations Vaccine Type Date Status Note Provider Nam e and Address Organization Details Recorded Time Td (adult), 2 Lf tetanus toxoid, preservative free, adsorbed 7 completed Not Available [facility] 01/18/2023 02:50:56 Influenza, split virus, trivalent, preservative 1 completed Not Available [facility] 01/18/2023 02:50:56 pneumococcal, unspecified formulation 1 completed Not Available [facility] 01/18/2023 02:50:56 zoster, unspecified formulation 1 completed Not Available [facility] 01/18/2023 02:50:56 Influenza, split virus, trivalent, preservative 1 completed Not Available [facility] 01/18/2023 02:50:56 pneumococcal polysaccharide PPV23 1 completed Not Available [facility] 01/18/2023 02:50:56 COVID-19, mRNA, LNP-S, PF, 30 mcg/0.3 mL dose 1 completed Not Available [facility] 01/18/2023 02:50:57 COVID-19, mRNA, LNP-S, PF, 30 mcg/0.3 mL dose 1 completed Not Available [facility] 01/18/2023 02:50:57 Past Encounters Encounter ID Performer Location Encounter Start Date Encounter Closed Date Diagnosis/Indication Diagnosis SNOMED-CT Code Diagnosis ICD10 Code Diagnosis Note [id number] ALL [facility] ([facility] [address] [place] [address] 03/17/2023 12:05:05 03/18/2023 14:42:14 Cough 74582711 R05.9 COVID-19 182611878 U07.1 Nausea 011182602 R11.0 [id number] TONYRuben CAMPOS [facility] ([facility]) [address] [place] [address] 03/26/2024 11:40:55 03/26/2024 13:06:31 Seasonal allergic rhinitis 675271271 J30.[id number] [facility]) [address] [place] [address] 07/03/2024 12:08:59 07/03/2024 13:37:45 Acute bacterial bronchitis 949484205 J20.9 End stage renal failure on dialysis 711725954 N18.[address] [place] out of [place] [...] [employer] (MEDICARE SUPPLEMENT) Valente Renae [id number] Valente Renae 07/03/2024 1 [place] Valente Renae [id number] Valente Renae 07/03/2024 [place] - [facility] (MEDICARE) Valente Renae [id number] Valente Renae Notes Date Note Type Note Provider Name and Address Organization Details Recorded Time 03/17/2023 text/html COVID-19 Symptom s October 2019Reported by PatientUpper Respiratory SymptomsFor covid-19 signs and symptoms, patient reportscough worsening,chills worsening,muscle pain worsening,headache worsening,fatigue worsening,diarrhea worsening,runny nose worsening, andcongestion worsening. For quality, patient reportsproductive cough. For associated symptoms, patient reportsgreen sputumandfatigue. For severity, patient reportsmoderate. For duration, patient reportssymptoms lasting 2 days. For prior labs and imaging, patient reportscovid-19 nasopharyngeal swab (positive at home). For contacts and exposure, (covid positive at home).Afebrile. No nausea.ROS as noted in the HPI ALL [facility]OEMAKER [address] [place], [address], [facility], Misti. 03/17/2023 13:27:21 03/26/2024 text/html CoughReported by PatientHPIFor quality, patient reportsproductive. For severity, patient reportsmoderate. For duration, patient reportsconstant. For onset/timing, patient reportssudden. For context, patient reportsnon-smoker. For associated symptoms, patient reportsno fever,no chills, andno throat clearing.ROS as noted in the HPI walk in ptPt has had a terrible cough for a week and a half. ALL NAVA [address] [place] [address], [phone], [facility], Misti. 03/26/2024 13:04:04 07/03/2024 text/html CoughReported by Patient walk in ptPt has a cough and weakness for a week and has 2 dialysis visits. ALL N[facility] [address] [place] [address], [address], [facility], Misti. 07/03/2024 13:30:07
--- OUTSIDE RECORDS SUMMARY | 2025-01-13 11:16 | XMS_ITS ---
Author Name [facility] Address [address] [place] [address] Phone [phone] Organization [facility] e, NA DOCUMENT DISCLAIMER Multiple document versions may exist, please be sure you review the latest version. 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 Z79.4 April 06, 2024 Benign prostatic hyperplasia without lower urinary tract symptoms N40.0 April 06, 2024 Other specified disorders of kidney and ureter N28.89 April 06, 2024 Chronic kidney disease, stage 4 (severe) N18.4 April 06, 2024 Heart failure, unspecified I50.9 Active O ctober 2023 Atherosclerotic heart diseas e of [place] coronary artery without angina pectoris I25.10 Active [...] Start Date End Date Stat us Diphenhydramine PRN-may repeat x1 itching 50 mg Intravenous - push January 06, 2025 January 05, 2026 Active Diphenhydramine PRN Allergic Reaction 50 mg Intravenous - push April 10, 2024 April 07, 2025 Active Epoetin Sarath (Epogen) During Dialysis, 3X Week 7200 units Intravenous - push January 11, 2025 January 10, 2026 Active Heparin Sodium (Porcine) 1,000 Units/mL Systemic [...] 13, 2024 Active fluticasone propionate 50 mcg/actuation [place] into both nostrils twice a day 1 [...] Sign Value Date / Time Blood Pressure-sitting 136/73 mmHg January 11, 2025 09:12 AM Heart Rate 91 beats per minute January 11 09:12 AM Respiratory Rate 18 breaths per minute January 11, 2025 09:12 AM Temperature 98.2 deg. F January 11, 2025 09 :12 AM Weight Vital Sign Value Date / Time Estimated Dry Weight 102 kg January 13 11:59 PM Pre-Dialysis 105.60 kg January 11, 2025 09 :12 AM Post-Dialysis 102.30 kg January 11, 2025 09 :12 AM Other Other Value Date / Time Height 177.8 cm April 07, 2024 12:00 AM Body Mass Index 32.67 kg/m2 January 11, 2025 04 :40 PM [facility] Tuberculosis Testing TST Date [...] 27.0 - 31.0 pg High October 28 25 RDW 16.4 % 11.5 - 14.5 % High October 28 MCHC 32.7 g/dL 30.0 - 36.0 g/dL - October 28, 2024 UIBC/TIBC 197 mcg/dL 155 - 355 mcg/dL - October 28, 2024 Iron 62 mcg/dL 45 - 160 mcg/dL - October 28, 025 Transferrin Sat. (Calc) 24 % 20 [...] ng/mL 22 - 322 ng/mL High November 25, 025 Hemoglobin x 3 31.5 % 42.0 - 54.0 % Low November Platelets 108 1000/mcL 130 - 400 1000/mcL Low November 25, 2024 RDW 17.4 % 11.5 - 14.5 % High November 25 MCH 31.6 pg 27.0 - 31.0 pg High November 25 025 MCHC 31.8 g/dL 30.0 - 36.0 g/dL [...] 19.0 - 48.0 % High November 25 025 Monocytes 0.1 % 3.0 - 10.0 % [...] Neutrophils 2 % 40 - 75 % December 28, 2024 Monocytes 3 % 3 - 10 % - December 28, 2024 Lymphocytes 82 % 19 - 48 % High December 28, 2024 MCHC 30.4 g/dL 30.0 - 36.0 g/dL - December 28, 2024 MCH 32.3 pg 27.0 - 31.0 pg High December 28 HCT 30.4 % 42.0 - 52.0 % December 28 Eosinophil 3 % 0 - 7 % [...] 35 mg/dL 10 - 30 mg/dL High [facility] 2024 Cholesterol HDL Ratio 2.8 0.0 - 4.5 - Aug 2024 Cholesterol, Total 104 mg/dL 0 - 199 mg/dL - Aug 2024 HDL 37 mg/dL No Reference Ran ge Provided - August 26, 2024 Triglycerides 174 mg/dL 0 - 149 mg/dL High August Immunochemistry Result Type Result Value Relevant Reference Range Interpre tation Date HCV s/co ratio 0.11 0.00 - 0.79 - March 232023 HCV s/co ratio 0.08 0.00 - 0.79 - August 26, 2024 Trace Elements Result Type Result Value Relevant Reference Range [place] tation Date Aluminum < 5 mcg/L 0 [...] Hemodialysis Data Element Value Order Date/Time January 13, 2025 Frequency 3X Week Treatment Days TueThuSat Dialyzer 180NRe Optiflux Treatment Time (Total Minutes) 240 min Blood Flow Rate (mL/min) 450 mL/min Dialysate Flow Rate Manual 800 Estimated Dry Weight 102 kg Dialysate Concentrate 3.0 K, 2.5 Ca, 1.0 Mg, 100 Dextrose (N3251) Sodium (mEq/L) 138 mEq/L Bicarb Machine Setting (mEq/L) 32 mEq/L Dialysis Access Hemodialysis-AV Gricelda t-Synthetic - [place] Acuseal, Right Upper Arm, Brachial Artery to Axillary Vein Access Placed on November 29, 2024 Arterial Needle Size 15g1 Venous Needle [...] Dialysate Dialyzer Dialysis Access Meds Admin January 04, 2025 Weight 104.80 kg Weight 103.60 kg 04:04:00 460 3.0 K, 2.5 Ca, 1.0 Mg, 100 Dextrose (N3251) 180nre Optifl ux Blood Pressure-sitting 129/69 mmHg Blood Pressure-sit ting [...] Dextrose (N3251) 180nre Optiflux Hemodialysis-AV Graft-Synthetic - [place] Acuseal, Right Upper Arm, Brachial Artery to [...] 98.3 deg. F Temperature 98.0 deg. F January 11, 2025 Weight 105.60 kg Weight 102.30 kg 03:58:00 450 3.0 K, 2.5 Ca, 1.0 Mg, 100 Dextrose (N3251) 180nre Optiflux Hemodialysis-AV Graft-Synthetic - [place] Acuseal, Right Upper Arm, Brachial Artery to Axillary Vein Access Placed on November 29, 2024 Epoetin Sarath (Epogen); 7200units,Intravenous - push Heparin Sodium (Porcine) 1,000 Units/mL Systemic; 5000units,Intravenous - push Iron Sucrose (Venofer); 100mg,Intravenous - push Vitamin D (Calcitriol) Oral; 0.25mcg,Oral Blood Pressure-sitting 132/66 mmHg Blood Pressure-sit ting 136/73 mmHg Heart Rate 98 beats per minute Heart Rate 91 beats per minute Respiratory Rate 16 breaths per minute Respiratory Rate 18 breaths per minute Temperature 98.1 deg. F Temperature 98.2 deg. F
--- OUTSIDE RECORDS SUMMARY | 2025-01-13 11:17 | XMS_ITS | Encounter Summary ---
Author Organization [facility] Address [address] [place] [address] Care Team Providers Care Sawmilling Operator Name Role Phone Paula Sandoval MD Primary Care Provider + [phone] Reason for Visit * Reason Onset Date Comments Question 01/10/2025 Encounter Details Date Type Department Care Team (Late st Contact Info) Description 01/10/2025 Telephone [facility] [address] [place] [address] Sotero Alejandro MD [address] [place] [address] Question Social History Tobacco Use Types [...] Senia, noted today's transfer was rcv'd. Noted GENA/PICKING BELT OPERATOR triggered 12-03-2024. Noted we have messaged Dr. Alejandro's team to please schedule gen change and they will be reaching out to patient to schedule gen change. Today's in clinic check for 3:00pm cancelled. * Telephone Encounter - Musa Sher - 01/10/2025 9:15 AM CDT [facility] Call Center Communications Flavia (Provider) Caller: Brooke Relation to Patient: daughter PHI (Y/N): y MESSAGE Calling to speak to [facility] Cardiology Freight Forwarder: Musa documented in this encounter Plan of Treatment Upcoming Encounters Date Type Department Care Team (Latest Contact Info) Description 5 11:45 AM CDT Appointment [facility] Laboratory Services [address] [facility] [place] [address] [place] [address] 5 1:44 PM CDT Hospital Encounter [facility] Cardiac Youth Corrections Officer [address] [place] [address] Sotero Alejandro MD [address] [place] [phone] Dilated cardiomyopathy (CMS/HCC) 5 1:44 PM CDT - 5 2:59 PM CDT Surgery [facility] Cardiac Youth Corrections Officer [address] [place] [address] Sotero Alejandro MD [address] [place] [phone] Pacemaker Upgrade to Biventricular ICD w Anesthesia 5 11:00 AM CDT Office Visit [facility] [address] [facility] [facility] [address] [place] [address] Lyndsey Dorsey, CIRCULATION CREW LEADER [address] [facility] [facility] [address] [place] [address] 5 2:00 PM CDT Hospital Encounter [facility] Endoscopy [address] [place] [address] Clinton Ascencio, DO [address] [facility] [address] [place] [phone] 5 2:00 PM CDT - 5 2:20 PM CDT Surgery [facility] Endoscopy [address] [place] [address] Clinton Ascencio, DO [address] [address] ESOPHAGOGASTRODUODENOSCOPY 5 11:30 AM CDT Office Visit [facility] Vascular Surgery [place] [address] [address] Klarissa Flowers MD [address] [facility] [address] [place] [address] Scheduled Procedures Name Priority Associated Diagnoses Date/Ti me ESOPHAGOGASTRODUODENOSCOPY gastric ulcer 02/07/2025 2:00 PM CDT documented as of this encounter Visit Diagnoses Not on filedocumented in this encounter Care Teams Sawmilling Operator Relationship Specialty Start Date End Date Paula Sandoval MD [address] [place] [address] PCP - General Family Practice 10/18/24 documented as of this encounter
--- OUTSIDE RECORDS SUMMARY | 2025-01-13 11:17 | XMS_ITS | Encounter Summary ---
Author Organization [facility] Address [address] [place] [address] Care Team Providers Care Document Imaging Manager Name Role Phone Paula Sandoval MD Primary Care Provider + [phone] Reason for Visit * Reason Onset Date Comments Needs Appointment 01/12/2025 Encounter Details Date Type Department Care Team (Late st Contact Info) Description 01/12/[address] [facility] [address] [facility] [address] [place] [address] Anum Dias, RN Needs Appointment Social History Tobacco Use Types Packs/Day Years [...] encounter Miscellaneous Notes * Telephone Encounter - Anum Dias, RN - 01/12/2025 2:35 PM CDT INSTRUCTIONS If you have questions or need to cancel the same day as your procedure please call [phone], all other times please contact the clinic at [phone] Check in at [facility] on the west side of the hospital on 01/19/25 at 11:30 AM. Procedure is scheduled to begin at 1:45 PM . Nothing to eat or drink after midnight. Pack a small overnight bag in case you would need to stay in the hospital overnight. Bring your medicine list, insurance cards and comfortable clothes to wear home with you to the hospital. You will need a driver supervisor to take you home from the hospital. If you go home the same day, you will need someone to stay with you for 24 hours. Take all routine morning medications with a sip of water before leaving home. Medications to hold the morning of the procedure: lasix, lantus, and Percocet Special instructions: If you are taking Aspirin or Plavix, do not stop. If you are having a pacemaker/defibrillator implanted, don???t bring any clothes that go on over the head. You will need a button up shirt to wear home. Shower the night before and the morning of the procedure with an antibacterial soap. Do not apply any lotion, perfume/cologne, or deodorant. No driving until your follow-up appointment in the wound clinic in 2-3 weeks, or for 6 months afterwards if you passed out. Do not lift, push, or pull anything heavier than 10 lbs with the affected arm until 4 weeks after implant. *If you start to lift something and it pulls on the incision area, stop.* In addition to your other Pre-procedure instructions sent: Please premedicate for your allergy to Iodine. Prednisone: Take 3 Tablets (60 mg) by mouth see administration instructions for 3 doses. Take one dose 60 mg around lunch time the day before surgery, Take a second dose 60 mg in the evening the day before surgery, and Take your final dose of 60 mg the morning of surgery Diana: Take 1 Tablet (180 mg) by mouth daily for 2 doses. Take 180 mg of diana the night before and again morning of your procedure Benadryl: Take 1 Capsule (50 mg) by mouth one time only for 1 dose. Take this dose 2 hours before your procedure documented in this encounter Plan of Treatment Upcoming Encounters Date Type Department Care Team (Latest Contact Info) Description 5 11:45 AM CDT Appointment [facility] Laboratory Services [address] [place] [address] 5 1:44 PM CDT Hospital Encounter [facility] Cardiac Grape Cutter [address] [place] [address] Sotero Alejandro MD [address] [place] [address] Dilated cardiomyopathy (CMS/HCC) 5 1:44 PM CDT - 5 2:59 PM CDT Surgery [facility] Cardiac Grape Cutter [address] [place] [address] Sotero Alejandro MD [address] [place] [address] Pacemaker Upgrade to Biventricular ICD w Anesthesia 5 11:00 AM CDT Office Visit [facility] [address] [place] [address] Lyndsey Dorsey, MARCELLO [address] [place] [address] 5 2:00 PM CDT Hospital Encounter [facility] Endoscopy [address] [place] [address] Clinton Ascencio DO [address] [place] [address] 5 2:00 PM CDT - 5 2:20 PM CDT Surgery [facility] Endoscopy [address] [place] [address] Clinton Ascencio DO [address] [place] [phone] ESOPHAGOGASTRODUODENOSCOPY 5 11:30 AM CDT Office Visit [facility] Vascular Surgery [place] [address] [place] [address] Klarissa Flowers MD [address] [place] [address] Scheduled Procedures Name Priority Associated Diagnoses Date/Ti me ESOPHAGOGASTRODUODENOSCOPY gastric ulcer 02/07/2025 2:00 PM CDT documented as of this encounter Visit Diagnoses Not on filedocumented in this encounter Care Teams Document Imaging Manager Relationship Specialty Start Date End Date Paula Sandoval MD [address] [place] [phone] PCP - General Family Practice 10/18/24 documented as of this encounter
--- OUTSIDE RECORDS SUMMARY | 2025-01-13 11:17 | XMS_ITS | Encounter Summary ---
Author Organization [employer] [facility] Address [address] [place] [address] Care Team Providers Care Oiling Machine Operator Name Role Phone Paula Sandoval MD Primary Care Provider + [phone] Reason for Visit * Reason Onset Date Comments Medication Refill 01/10/2025 Encounter Details Date Type Department Care Team (Late st Contact Info) Description 01/10/2025 Refill [facility] Cancer and Hematology [place] [address] [facility] 2 [place] [address] Umm Dotson, [address] [place] [address] CLL (chronic lymphocytic leukemia) ([facility]) Social History Tobacco Use Types Packs/Day Years [...] we have been waiting on auth from [place] before being able to send prescription Script sent today OV notes faxed via RightFax to [phone] Secure chat received Thank you! @Dianne Crandall RN Can you please forward his script to the [place]? [facility] [place], [place] - [address], [place] [address] CS They will also need clinical notes faxed to them documented in this encounter Plan of Treatment Upcoming Encounters Date Type Department Care Team (Latest Contact Info) Description 5 11:[address] [facility] Laboratory Services [address] [facility] 2 [place] [phone] 5 1:44 PM CDT Hospital Encounter [facility] Cardiac Glaucoma Specialist [address] [place] [phone] Sotero Alejandro MD [address] [place] [address] Dilated cardiomyopathy (CMS/HCC) 5 1:44 PM CDT - 5 2:59 PM CDT Surgery [facility] Cardiac Glaucoma Specialist [address] [place] [address] Sotero Alejandro MD [address] [place] [address] Pacemaker Upgrade to Biventricular ICD w Anesthesia 5 11:00 AM CDT Office Visit [facility] [address] [facility] [address] [place] [address] Lyndsey Dorsey, MARCELLO [address] [facility] [address] [place] [phone] 5 2:00 PM CDT Hospital Encounter [facility] Endoscopy [address] [place] [address] Clinton Ascencio, DO [address] [facility] [address] [place] [address] 5 2:00 PM CDT - 5 2:20 PM CDT Surgery [facility] Endoscopy [address] [place] [address] Clinton Ascencio, DO [address] [facility] [address] [place] [address] ESOPHAGOGASTRODUODENOSCOPY 5 11:30 AM CDT Office Visit [facility] Vascular Surgery [place] [address] [facility] [address] [place] [address] Klarissa Flowers MD [address] [facility] [address] [place] [address] Scheduled Procedures Name Priority Associated Diagnoses Date/Ti me ESOPHAGOGASTRODUODENOSCOPY gastric ulcer 02/07/2025 2:00 PM CDT documented as of this encounter Visit Diagnoses Diagnosis CLL (chronic lymphocytic leukemia) (CMS/HCC) Chronic lymphoid leukemia, without mention of having achieved remission Pacemaker at end of battery life Fitting [...] disease documented in this encounter Care Teams Oiling Machine Operator Relationship Specialty Start Date End Date Paula Sandoval MD [address] [place] [phone] PCP - General Family Practice 10/18/24 documented as of this encounter
--- OUTSIDE RECORDS SUMMARY | 2025-01-13 11:17 | XMS_ITS | Encounter Summary ---
Author Organization [facility] Address [address] [place] [address] Care Team Providers Care Software Quality Engineer Name Role Phone Paula Sandoval MD Primary Care Provider + [phone] Encounter Details Date Type Department Care Team (Late st Contact Info) Description 01/11/2025 Chart Note [facility] [address] [facility] [address] [place] [address] Anum Dias RN Social History Tobacco Use Types Packs/Day Years [...] as of this encounter Progress Notes * Anum Dias RN - 01/11/2025 3:56 PM CDT Images from the original note were not included. Cody Baltazar Kyra L, RN GENA/PHYSICIAN PEDIATRICIAN triggered on 12-03-2024, will need to schedule gen change. 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 GENA/PHYSICIAN PEDIATRICIAN status reverted to VVI 65 programming. Family and patient aware they will be contacted to schedule gen change. Thanks. documented in this encounter Plan of Treatment Upcoming Encounters Date Type Department Care Team (Latest Contact Info) Description 5 11:45 AM CDT Appointment [facility] [address] [place] [address] 5 1:44 PM CDT Hospital Encounter [facility] Cardiac Information Systems Consultant [address] [place] [address] Sotero Alejandro MD [address] [place] [address] Dilated cardiomyopathy (CMS/HCC) 5 1:44 PM CDT - 5 2:59 PM CDT Surgery [facility] Cardiac Information Systems Consultant [address] [place] [address] Sotero Alejandro MD [address] [place] [address] Pacemaker Upgrade to Biventricular ICD w Anesthesia 5 11:00 AM CDT Office Visit [facility] [address] [place] [address] Lyndsey Dorsey NP [address], [address] [place] [address] 5 2:00 PM CDT Hospital Encounter [facility] Endoscopy [address] [place] [address] Clinton Ascencio, DO [address] [place] [address] 5 2:00 PM CDT - 5 2:20 PM CDT Surgery [facility] Endoscopy [address] [place] [address] Clinton Ascencio, DO [address] [place] [address] ESOPHAGOGASTRODUODENOSCOPY 5 11:30 AM CDT Office Visit [facility] Vascular Surgery [place] [address] [place] [address] Klarissa Flowers MD [address] [facility] [address] [place] [address] Scheduled Procedures Name Priority Associated Diagnoses Date/Ti me ESOPHAGOGASTRODUODENOSCOPY gastric ulcer 02/07/2025 2:00 PM CDT documented as of this encounter Visit Diagnoses Not on filedocumented in this encounter Care Teams Software Quality Engineer Relationship Specialty Start Date End Date Paula Sandoval MD [address] [place] [phone] PCP - General Family Practice 10/18/24 documented as of this encounter
--- OUTSIDE RECORDS SUMMARY | 2025-01-13 11:17 | XMS_ITS | Encounter Summary ---
Author Organization [facility] Address [address] [place] [address] Care Team Providers Care Enterprise Records Analyst Name Role Phone Paula Sandoval MD Primary Care Provider + [phone] Reason for Visit * Reason Onset Date Comments Appointment Notification 05/25/2024 Needs a different appointment time 05/25/2024 Encounter Details Date Type Department Care Team (Late st Contact Info) Description 05/25/2024 Telephone [facility] [address] [place] [address] Eugenie Mederos, BLOWN FILM EXTRUSION OPERATOR [address] [facility] [address] [place] [address] Appointment Notification; Needs a different appointment [...] due to the long drive in from [place] Please assist . Thank you Cardiology Processor Inspector: Kathi Putnam SCAPE ARCHITECT AND PLANNER documented in this encounter Plan of Treatment Upcoming Encounters Date Type Department Care Team (Latest Contact Info) Description 5 11:45 AM CDT Appointment [facility] Laboratory Services [address] [place] [address] 5 1:44 PM CDT Hospital Encounter [facility] Cardiac Security System Analyst [address] [place] [address] Sotero Alejandro MD [address] [place] [address] Dilated cardiomyopathy (CMS/HCC) 5 1:44 PM CDT - 5 2:59 PM CDT Surgery [facility] Cardiac Security System Analyst [address] [place] [address] Sotero Alejandro MD [address] [place] [address] Pacemaker Upgrade to Biventricular ICD w Anesthesia 5 11:00 AM CDT Office Visit [facility] [address] [place] [address] Lyndsey Dorsey, EXTRUDER OPERATOR VERTICAL [address] [facility] [address], [address] [place] [address] 5 2:00 PM CDT Hospital Encounter [facility] Endoscopy [address] [place] [address] Clinton Ascencio, DO [address] [facility] [address] [place] [phone] 5 2:00 PM CDT - 5 2:20 PM CDT Surgery [facility] Endoscopy [address] [place] [address] Clinton Ascencio, DO [address] [facility] [address] [place] [address] ESOPHAGOGASTRODUODENOSCOPY 5 11:30 AM CDT Office Visit [facility] Vascular Surgery [place] [address] [facility] [address] [place] [address] Klarissa Flowers MD [address] [facility] [address] [place] [address] Scheduled Procedures Name Priority Associated Diagnoses Date/Ti me ESOPHAGOGASTRODUODENOSCOPY gastric ulcer 02/07/2025 2:00 PM CDT documented as of this encounter Visit Diagnoses Not on filedocumented in this encounter Care Teams Enterprise Records Analyst Relationship Specialty Start Date End Date Paula Sandoval MD [address] [place] [phone] PCP - General Family Practice 10/18/24 documented as of this encounter
--- OUTSIDE RECORDS SUMMARY | 2025-01-13 11:17 | XMS_ITS | Encounter Summary ---
Author Organization [facility] [employer] Address [address] [place] [address] Phone Care Team Providers Care Allergist/Md Name Role Phone Alejandro Macias MD Primary Care Provider + [phone] Encounter Details Date Type Department Care Team (Late st Contact Info) Description 01/11/2025 [facility] [employer], [facility] [address] [place] [address] Ro West MD [address] [place] [address] End stage renal disease; Dependence [...] encounter Miscellaneous Notes * Dialysis Note - Ro West MD - 01/11/2025 12:00 AM CDT Patient: Valente Renae, 1945, 79y, M Dialysis Location: [facility] Attending Body Stylist: Ro West Service Date: 01/11/2025 Service Provider: Ro West MD I met face to face with the patient today. 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 reports doing well, denies need for me today CLL not having achieved remission: reports given elevated WBC, oncologist advising referral to [place]. Patient has declined the referral. Needing an ICD and PPM battery changed. Is to be scheduled soon per Dr. Alejandro. He has some SOB today. Has leg edema. Will challenge UF today and lower EDW. Medications and labs reviewed. LAST HOSPITALIZATION Discharge Diagnosis: R65.21 Severe sepsis with septic shock Admission Date 12/04/24 Discharge Date 12/11/24 DIALYSIS PRESCRIPTION IHD 3x Week Start date: 01/11/25 Dialyzer: 180NRe Optiflux BFR: 450 DFR: Manual 800 Potassium: 3.0 Sodium: 138 EDW: 103.5 Duration: 4:00 Calcium: 2.5 Bicarb: 32 Rx updated on: 01/10/2025 TREATMENT ASSESSMENT Comments: Stable BP Stand Pre 01/06/2025: 122/60 01/01/2025: 108/57 BP Sit Pre 01/06/2025: 115/57 01/04/2025: 129/69 01/01/2025: 122/63 BP Stand Post 01/06/2025: 137/65 01/04/2025: 124/74 01/01/2025: 100/62 BP Sit Post 01/06/2025: 120/50 01/04/2025: 139/74 01/01/2025: 138/76 Tx Duration 01/06/2025: 4:10 01/04/2025: 4:04 01/01/2025: 4:08 Missed Treatments 3 - last 30 days 3 - last 60 days 01/08 - recent FLUID ASSESSMENT Comments: Asa above lower EDW today after challenge with UF. EDW (kg) 01/06/2025: 103.5 01/04/2025: 103.5 01/01/2025: 104.5 Weight Pre (kg) 01/06/2025: 106.2 01/04/2025: 104.8 01/01/2025: 103.8 Weight Post (kg) 01/06/2025: 105.0 01/04/2025: 103.6 01/01/2025: 103.2 PWV (kg) 01/06/2025: 1.5 01/04/2025: 0.1 01/01/2025: -1.3 UF Rate (mL/kg/hr) 01/06/2025: 2.7 01/04/2025: 2.8 01/01/2025: 1.4 ADEQUACY ASSESSMENT Comments: Stable trend spKt/V, URR 12/30/2024: 1.42, 72.0 11/25/2024: 1.56, 76.0 10/28/2024: 1.62, 76.0 ACCESS ASSESSMENT Access Type: AVGraft Access SubType: Synthetic - [place] Acuseal Access Status: Active (In Use) - 01/01/2025 Access Location: Right Upper Arm Created: 11/29/2024 Vascular access reviewed. Current access is permanent and functioning well. ANEMIA ASSESSMENT Comments: On IV iron and ABI protocol. HGB, TSAT 01/06/2025: 9.4, - 12/30/2024: 9.3, - 12/28/2024: 9.2, 29.0 Ferritin 12/02/2024: 516.0 11/25/2024: 582.0 08/26/2024: 197.0 Epoetin Sarath (Epogen), IVP (units) 01/06/2025: 5800 01/04/2025: 5800 01/01/2025: 5800 Iron Sucrose (Venofer) (mg) 01/08/2025: 100 01/06/2025: 100 01/04/2025: 100 BMM ASSESSMENT Comments: Stable. PTH, Intact 11/25/2024: 432.0 08/26/2024: 275.0 Calcium, Phosphorus 12/28/2024: 8.3, 3.3 11/25/2024: 8.6, 4.8 10/28/2024: 8.9, 5.1 Vitamin D (Calcitriol) Oral (mcg) 01/08/2025: 0.25 01/06/2025: 0.25 01/04/2025: 0.25 NUTRITION ASSESSMENT Comments: Ed to increase protein in diet. Referred to dietitian. Potassium, Albumin 12/28/2024: 4.4, 3.7 11/25/2024: 4.4, 3.9 10/28/2024: 4.8, 3.9 eNPCR 12/30/2024: 0.62 11/25/2024: 0.71 10/28/2024: 0.86 PHYSICAL EXAM Exam Performed. Vital Signs Reviewed. CV - Blood pressure noted. EXT - 2+ edema. EXT - No ulcers. AVF/AVG Positive thrill/bruit. DIAGNOSIS Chief Complaint: N18.6 End stage renal disease Patient is stable. Patient data updated 01/11/2025 at 10:32 AM Signed By: Ro West MD on 01/11/2025 10:34:29 AM documented in this encounter Plan of Treatment Not on file documented as of this encounter Visit Diagnoses Diagnosis End stage renal disease Dependence on renal dialysis documented in this encounter Care Teams Allergist/Md Relationship Specialty Start Date End Date Alejandro Macias MD [address] [place] [address] PCP - General Family Medicine 12/15/18 documented as of this encounter
--- OUTSIDE RECORDS SUMMARY | 2025-01-13 11:17 | XMS_ITS | Encounter Summary ---
Author Organization [facility] Address [address] [place] [address] Care Team Providers Care Plasma Processor Name Role Phone Paula Sandoval MD Primary Care Provider + [phone] Encounter Details Date Type Department Care Team (Late st Contact Info) Description 01/13/2025 Orders Only [facility] Cancer and Hematology [place] [address] [facility] 2 [place] [address] Umm Dotson, [address] [place] [address] CLL (chronic lymphocytic leukemia) ([facility]/HCC) (Primary Dx) Social History Tobacco Use Types [...] Contact Info) Description 11:45 AM CDT Appointment [facility] [address] [place] [address] 5 1:44 PM CDT Hospital Encounter [facility] Cardiac Manager Technical Services [address] [place] [address] Sotero Alejandro MD [address] [place] [address] Dilated cardiomyopathy (CMS/HCC) 5 1:44 PM CDT - 5 2:59 PM CDT Surgery [facility] Cardiac Manager Technical Services [address] [place] [address] Sotero Alejandro MD [address] [place] [address] Pacemaker Upgrade to Biventricular ICD w Anesthesia 5 11:00 AM CDT Office Visit [facility] [address] [place] [address] Lyndsey Dorsey, MARCELLO [address], [address] [place] [address] 5 2:00 PM CDT Hospital Encounter [facility] Endoscopy [address] [place] [address] Clinton Ascencio, DO [address] [place] [address] 5 2:00 PM CDT - 5 2:20 PM CDT Surgery [facility] Endoscopy [address] [place] [address] Clinton Ascencio DO [address] [place] [address] ESOPHAGOGASTRODUODENOSCOPY 11:30 AM CDT Office Visit [facility] Vascular Surgery [place] [address] [place] [address] Klarissa Flowers MD [address] [place] [address] Scheduled Orders Name Type Priority Associated Diagnoses Orde r Schedule CBC WITH DIFFERENTIAL Lab Routine CLL (chronic lymphocytic leukemia) (CMS/HCC) Expected: 01/13/2025, Expires: 01/13/2026 COMPREHENSIVE METABOLIC PANEL Lab Routine CLL (chronic lymphocytic leukemia) (CMS/HCC) Expected: 01/13/2025 (Approximate), Expires: 01/13/2026 LACTATE DEHYDROGENASE Lab Routine CLL (chronic lymphocytic leukemia) (CMS/HCC) Expected: 01/13/2025, Expires: 01/13/2026 URIC ACID Lab Routine CLL (chronic lymphocytic leukemia) (CMS/HCC) Expected: 01/13/2025 (Approximate), Expires: 01/13/2026 Scheduled Procedures Name Priority Associated Diagnoses Date/Ti me ESOPHAGOGASTRODUODENOSCOPY gastric ulcer 02/07/2025 2:00 PM CDT documented as of this encounter Visit Diagnoses Diagnosis Pacemaker at end of battery life Fitting and adjustment of cardiac pacemaker Cardiac pacemaker in situ Cardiac left ventricular ejection fraction 21-40 percent Other symptoms involving cardiovascular system Dilated cardiomyopathy (CMS/HCC) Other primary cardiomyopathies Chronic combined systolic and diastolic CHF (congestive heart failure) (CMS/HCC) 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
--- OUTSIDE RECORDS SUMMARY | 2025-01-13 11:17 | XMS_ITS | Encounter Summary ---
Author Organization [facility] Address [address] [place] [address] Care Team Providers Care Director Sterile Processing Name Role Phone Paula Sandoval MD Primary Care Provider + [phone] Encounter Details Date Type Department Care Team (Late st Contact Info) Description 01/12/2025 Prep for Surgery [facility] [address] [place] [id number] Sotero Alejandro MD [address] [place] [id number] Cardiac pacemaker in situ (Primary Dx); Left ventricular ejection fraction of 20-34%; Pacemaker at end of battery life; Ischemic dilated cardiomyopathy (CMS/HCC); Combined systolic and diastolic congestive heart failure, unspecified HF chronicity (CMS/HCC); Cardiac left ventricular ejection fraction 21-40 percent Social History Tobacco Use Types Packs/Day Years [...] Info) Description 5 11:45 AM CDT Appointment [facility] [address] [place] [address] 5 1:44 PM CDT Hospital Encounter [facility] Cardiac Accountant Assistant [address] [place] [address] Sotero Alejandro MD [address] [place] [address] Dilated cardiomyopathy (CMS/HCC) 5 1:44 PM CDT - 5 2:59 PM CDT Surgery [facility] Cardiac Accountant Assistant [address] [place] [address] Sotero Alejandro MD [address] [place] [address] Pacemaker Upgrade to Biventricular ICD w Anesthesia 5 11:00 AM CDT Office Visit [facility] [address] [place] [address] Lyndsey Dorsey, MARCELLO [address] [place] [address] 5 2:00 PM CDT Hospital Encounter [facility] Endoscopy [address] [place] [address] Clinton Ascencio, DO [address] [place] [address] 5 2:00 PM CDT - 5 2:20 PM CDT Surgery [facility] Endoscopy [address] [place] [address] Clinton Ascencio DO [address] [place] [address] ESOPHAGOGASTRODUODENOSCOPY 5 11:30 AM CDT Office Visit [facility] Vascular Surgery [place]ie [address] [place] [address] Klarissa Flowers MD [address] [place] [address] Scheduled Procedures Name Priority Associated Diagnoses Date/Ti me ESOPHAGOGASTRODUODENOSCOPY gastric ulcer 02/07/2025 2:00 PM CDT documented as of this encounter Visit Diagnoses Diagnosis Cardiac pacemaker in situ- Primary Left ventricular ejection fraction of 20-34% Pacemaker at end of battery life Fitting and adjustment of cardiac pacemaker Ischemic dilated cardiomyopathy (CMS/HCC) Other specified 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
--- NOTE | 2025-01-13 11:34 | W.ED.WEAKNES ---
HPI - Weakness General: Chief complaint: Weakness Stated complaint: WEAKNESS Time Seen by Provider: 01/13/25 11:11 History of Present Illness: 79-year-old man with a history of end-stage renal disease on dialysis, anemia, BPH, diabetes, hypertension, coronary artery disease, CLL and carotid artery disease who presents to the emergency room with weakness and shortness of breath. He has missed his last 3 dialysis appointments. He says this is mostly because he was not feeling well. He has had some nausea and vomiting but no focal abdominal pain. He was planning on going on to dialysis today and he was at his daughter's house and he went to the bathroom and became very lightheaded and weak. EMS reports that he appeared very pale. They said his oxygen saturations were normal but his symptoms and his tachypnea did improve with oxygen. He complains of lower extremity pain and swelling. Related Data Home Medications ?Medication ?Instructions ?Recorded ?Confirmed docusate sodium 100 mg capsule 100 mg PO BID PRN Constipation 12/02/19 07/07/24 (Colace) cholecalciferol (vitamin D3) 25 50 mcg PO DAILY 12/14/20 07/07/24 mcg (1,000 unit) capsule atorvastatin 10 mg tablet 10 mg PO DAILY@18 03/02/21 07/07/24 diclofenac sodium 1 % topical gel 4 g topical QID PRN Pain 05/02/21 07/07/24 insulin regular human 100 unit/mL See Rx Instructions .Route 05/02/21 07/07/24 injection solution (Novolin R .COMPLEX see pharmacy comments Regular U-100 Insulin) loratadine 10 mg tablet (Claritin) 10 mg PO DAILY 05/02/21 07/07/24 tamsulosin 0.4 mg capsule 0.4 mg PO DAILY 10/18/21 07/07/24 fluticasone propionate 50 2 spray intranasal DAILY 07/16/22 07/07/24 mcg/actuation nasal spray,suspension (Flonase Allergy Relief) finasteride 5 mg tablet 5 mg PO DAILY 11/20/22 07/07/24 insulin glargine 100 unit/mL (3 35 unit SUBCUT QAM 11/20/22 07/07/24 mL) subcutaneous pen nifedipine 60 mg tablet,extended 60 mg PO DAILY 11/20/22 07/07/24 release omega 1-wok-gkw-fish oil 1,000 mg 1 cap PO BID 11/20/22 07/07/24 (120 mg-180 mg) capsule (Fish Oil) carvedilol 3.125 mg tablet 3.125 mg PO Q12H 05/12/24 07/07/24 sevelamer carbonate 800 mg tablet 800 mg PO TID 05/12/24 07/07/24 Previous Rx's ?Medication ?Instructions ?Recorded isosorbide mononitrate 120 mg 120 mg PO DAILY #90 tabs 09/25/23 tablet,extended release 24 hr furosemide 40 mg tablet See Rx Instructions .Route 02/10/24 .COMPLEX #30 tabs Allergies Allergy/AdvReac Type Severity Reaction Status Date / Time allopurinol Allergy ALGY-Rash Verified 07/07/24 10:04 Iodinated Contrast Media Allergy ALGY-Hives Verified 07/07/24 10:04 levofloxacin (From Levaquin) Allergy ADR-Confusi Verified 07/07/24 10:04 on metformin Allergy ADR-Fatigue Verified 07/07/24 10:04 d Review of Systems Narrative: Constitutional symptoms: Negative except as documented in HPI. Skin symptoms: Negative except as documented in HPI. Eye symptoms: Negative except as documented in HPI. ENMT symptoms: Negative except as documented in HPI. Respiratory symptoms: Negative except as documented in HPI. Cardiovascular symptoms: Negative except as documented in HPI. Gastrointestinal symptoms: Negative except as documented in HPI. Genitourinary symptoms: Negative except as documented in HPI. Musculoskeletal symptoms: Negative except as documented in HPI. Neurologic symptoms: Negative except as documented in HPI. Psychiatric symptoms: Negative except as documented in HPI. Endocrine symptoms: Negative except as documented in HPI. PFSH ED PFSH: Medical History (Updated 01/13/25 @ 13:19 by Kiana Valentine MD) Hyperuricemia History of COVID-19 (~12/2020) Anemia, unspecified Complex renal cyst BPH loc w urin obs/LUTS Diabetes HTN (hypertension) ASHD (arteriosclerotic heart disease) Dyslipidemia CKD (chronic kidney disease) CLL (chronic lymphocytic leukemia) Carotid stenosis, bilateral Surgical History H/O removal of testicle S/P appendectomy S/P CABG (coronary artery bypass graft) S/P PTCA (percutaneous transluminal coronary angioplasty) Status cardiac pacemaker Family History Mother , in her 70's Diabetes CAD (coronary artery disease) Father , at age 69 CAD (coronary artery disease) Hypertension Other Cancer Chronic kidney disease (CKD) Stroke Suicide Denies family history of Clotting disorder Dementia Hyperlipidemia Psychiatric illness Anesthesia complication Bleeding disorder Lung disease Social History Smoking and tobacco/nicotine status: former use of tobacco/nicotine Quit status (tobacco/nicotine): has quit using Year quit tobacco: 1989 Alcohol intake: never Substance/Drug Use: never Household members: spouse Marital status: Current occupational status: retired Physical Exam Narrative: EXAM NARRATIVE: General: Alert, no acute distress. Skin: Warm, dry. Head: Normocephalic, atraumatic. Neck: Supple, trachea midline. Eye: Extraocular movements are intact. Ears, nose, mouth and throat: mucosa moist. Cardiovascular: Regular, Normal peripheral perfusion. Stockings in place on lower extremities Respiratory: Lungs are clear to auscultation, respirations are non-labored, breath sounds are equal, Symmetrical chest wall expansion. Gastrointestinal: Soft, Nontender, Non distended Musculoskeletal: Normal ROM, no deformity. Neurological: Alert and oriented, No focal neurological deficit observed. Psychiatric: Cooperative, appropriate mood & affect. Course Vital Signs: Vital signs: Vital Signs Temperature 98.4 F 01/13/25 11:17 Pulse Rate 66 01/13/25 13:40 Respiratory Rate 21 H 01/13/25 13:40 Blood Pressure 147/80 01/13/25 13:40 Pulse Oximetry 92 01/13/25 12:55 Oxygen Delivery Me thod Room Air 01/13/25 11:56 MDM - Weakness Medical Decision Making Medical decision making: Differential diagnosis for patient presenting with generalized weakness including but not limited to and based on the above HPI, review of systems and physical exam: Sepsis. Dehydration. Renal failure. Electrolyte abnormalities. Anemia. Congestive heart failure. Hypotension. Coronary syndrome. Hepatitis. Cirrhosis. Infections such as pneumonia, urinary tract infection, Tick bourne illness, Cellulitis, Viral infections including influenza and Covid-19. Workup: labwork and lab/exam driven imaging ordered to evaluate, rule in and rule out above pathologies. EKG: Time 1142. Rate 65. Normal sinus rhythm, No ST-T changes, no ectopy, paced rhythm, this was reviewed and interpreted by myself the emergency room physician at 1145 Chest x-ray: Development of a patchy left lower lobe opacity that could be a pneumonia atelectasis or effusion. Cardiomegaly and bilateral effusions. A CT scan has been ordered to further evaluate this. This was reviewed and interpreted by myself the emergency room physician. I also reviewed the radiology report. Lab Review: Laboratory results were reviewed and interpreted by myself the emergency room physician. No leukocytosis. No anemia. BUN/creatinine are 55 and 5.5 with a potassium of 6.6. This will be expected in a patient who is missed his last 4 dialysis sessions. Urinalysis is negative for infection. I reviewed the patient's medical record. Reexamination: Patient remained stable. No increased work of breathing. No altered mental status. No focal motor deficits. Consultation: I spoke with Dr. Hall who is on-call for nephrology who will initiate dialysis on the patient. Consultation: I spoke with Dr. Beard who is on-call for the hospitalist service who agrees to admission to the cardiac stepdown unit. Assessment and plan: End-stage renal disease on dialysis Medical noncompliance Hyperkalemia Fluid overload Dyspnea Possible sepsis Lactic acidosis ?Patient has a very elevated lactic acid but otherwise no signs of sepsis at this point vitals are normal. Empirically treating. Possibly a pneumonia on x-ray but I think this is from fluid overload. A CT scan has been ordered to further evaluate - patient is fluid overloaded I did give a 50 mL saline bolus and he is receiving 250 mL of D10 -Broad-spectrum antibiotics were administered. Zyvox and meropenem -Sepsis quality measures. -Lactic acid with a reflex was ordered. -Blood cultures were ordered. -250 ml D10 bolus with 10 units of insulin. Calcium gluconate. P.o. Kayexalate -I discussed the patient with the hospitalist on-call who is admitting the patient. - Discussed findings and plan with patient. Answered any questions. - All laboratory values were reviewed and interpreted personally by myself, the ER physician - All imaging was reviewed and interpreted personally by myself, the ER physician. - Evaluation and treatment of this problem were appropriate in the emergency setting Critical Care: -I spent a total of >35 minutes of critical care time managing the patient, independent of any other practitioner. -The time involved in the performance of separately reportable procedures was not counted towards critical care time. Lab Data 01/13/25 11:58 01/13/25 11:58 Radiology Impressions Chest X-Ray 01/13/25 11:15 Impression: 1. Development of patchy left lower lobe opacity which could represent pneumonia, atelectasis and/or effusion. 2. Cardiomegaly and small bilateral effusions. 3. No change in cardiac pacemaker. Laboratory Results WBC 8.51 10^3/uL (3.29-11.43) 01/13/25 11:58 Corrected WBC Cancelled 01/13/25 10:55 RBC 3.54 10^6/uL (3.85-5.65) L 01/13/25 11:58 Hgb 11.40 g/dL (11.27-16.99) 01/13/25 11:58 Hct 39.0 % (37-53) 01/13/25 11:58 MCV 110.2 fl (82-101) H 01/13/25 11:58 MCH 32.2 pg (27-33) 01/13/25 11:58 MCHC 29.2 g/dL (30-55) L 01/13/25 11:58 RDW 18.0 % (12.1-15.1) H 01/13/25 11:58 Plt Count 149 10^3/cmm (157-399) L 01/13/25 11:58 MPV 10.6 fL (7.4-10.4) H 01/13/25 11:58 Gran % Cancelled 01/13/25 10:55 Neut % (Auto) 41.4 % 01/13/25 11:58 Lymph % (Auto) 52.9 % 01/13/25 11:58 [place] % (Auto) 4.8 % 01/13/25 11:58 Eos % (Auto) 0.1 % 01/13/25 11:58 Baso % (Auto) 0.4 % 01/13/25 11:58 Neut # (Auto) 3.53 10^3/uL (1.8-7.7) 01/13/25 11:58 Lymph # (Auto) 4.5 10^3/uL (0.8-4.8) 01/13/25 11:58 [place] # (Auto) 0.4 10^3/uL (0.2-0.9) 01/13/25 11:58 Eos # (Auto) 0.0 10^3/uL (0.0-0.8) 01/13/25 11:58 Baso # (Auto) 0.0 10^3/uL (0.0-0.1) 01/13/25 11:58 Absolute Gran (auto) Cancelled 01/13/25 10:55 Nucleated RBC % (auto) 0 % 01/13/25 11:58 Nucleated RBCs # 0.0 /100WBC 01/13/25 11:58 Specimen Type Arterial 01/13/25 11:44 Sample Site Brachial, left 01/13/25 11:44 ABG pH 7.32 (7.35-7.45) L 01/13/25 11:44 ABG pCO2 31.9 mmHg (35-45) L 01/13/25 11:44 ABG pO2 69.6 mmHg (80.0-100.0) L 01/13/25 11:44 ABG PO2/FiO2 Ratio 331 01/13/25 11:44 ABG HCO3 16.5 mmol/L (22-26) L 01/13/25 11:44 ABG O2 Saturation 91.4 01/13/25 11:44 ABG Base Excess -8.6 mmol/L (-2.0-2.0) L 01/13/25 11:44 Tj Test N/a 01/13/25 11:44 A-a O2 Gradient 5.2 mmHg (5-10) 01/13/25 11:44 Hematocrit 35.5 % (42-52) L 01/13/25 11:44 Hgb O2 Saturation 88.9 % (95-100) L 01/13/25 11:44 Carboxyhemoglobin 2.1 %THgb (0.4-20.1) 01/13/25 11:44 Methemoglobin 0.7 % (0.4-1.5) 01/13/25 11:44 Total Hemoglobin 11.6 g/dL (14-18) L 01/13/25 11:44 Sodium 136.0 mmol/L (131-143) 01/13/25 11:44 Potassium 6.4 mmol/L (3.5-5.0) H 01/13/25 11:44 Glucose 218.0 mg/dL (70-115) H 01/13/25 11:44 Ionized Calcium 1.2 mmol/L (1.1-1.4) 01/13/25 11:44 O2 Delivery Device Room air 01/13/25 11:44 FiO2 21.0 % 01/13/25 11:44 Nuclear Engineering Technician ID Amh 01/13/25 11:44 Sodium 138 mmol/L (136-145) 01/13/25 11:58 Potassium 6.6 mmol/L (3.5-5.1) H* 01/13/25 11:58 Chloride 95 mmol/L (98-107) L 01/13/25 11:58 Carbon Dioxide 18 mmol/L (22-29) L 01/13/25 11:58 Anion Gap 31.6 (5-19) H 01/13/25 11:58 BUN 55 mg/dL (8-23) H 01/13/25 11:58 Creatinine 5.5 mg/dL (0.7-1.2) H 01/13/25 11:58 GFR Calculation Not Reportable 01/13/25 11:58 Glucose 210 mg/dL (65-115) H 01/13/25 11:58 POC Glucose 207 mg/dL (70-110) H 01/13/25 13:15 Calculated Osmolality 307 mOsm/kg (285-295) H 01/13/25 11:58 Lactic Acid 8.0 mmol/L (0.5-2.2) H* 01/13/25 11:58 Calcium 9.8 mg/dL (8.5-10.5) 01/13/25 11:58 Phosphorus 6.2 mg/dL (2.5-4.5) H 01/13/25 11:58 Magnesium 2.2 mg/dL (1.7-2.3) 01/13/25 11:58 Total Bilirubin 1.8 mg/dL (0.15-1.2) H 01/13/25 11:58 AST 112 U/L (0-40) H 01/13/25 11:58 ALT 79 U/L (0-41) H 01/13/25 11:58 Alkaline Phosphatase 133 U/L (40-130) H 01/13/25 11:58 Troponin T Baseline 159 ng/L (0-15) H* 01/13/25 11:58 Troponin T 120 Minute 156.5 ng/L (0-15) H 01/13/25 12:32 Delta Troponin T -2.5 ABS# (0-10) L 01/13/25 12:32 NT-Pro-B Natriuret Pep 71817 pg/mL (0-450) H 01/13/25 11:58 Total Protein 6.6 g/dL (6.6-8.7) 01/13/25 11:58 Albumin 4.5 g/dL (3.5-5.2) 01/13/25 11:58 Globulin 2.1 g/dL (1.3-4.6) 01/13/25 11:58 Lipase 18 U/L (13-60) 01/13/25 11:58 All radiology interpretation(s) finalized by discharge Discharge Plan Discharge Patient Disposition: Admitted As Inpatient Clinical Impression: End stage renal disease on dialysis, Acute hyperkalemia, Pulmonary edema, Dyspnea, Lactic acidosis Condition: Stable Coding Level of Care Code ED Residential Appliance Repair Technician for Jordin Moreno
[2025-01-13 11:55] LABS: ABG PCO2 31.9 mmHg (35-45); ABG PH Result 7.32 (7.35-7.45); Alveolar-Arterial Oxygen Gradi 5.2 mmHg (5-10); Arterial Blood Gas Hematocrit 35.5 % (42-52); Blood Gas Operator Identificat AMH; Blood Gas Sample Site Brachial, left; Blood Gas Sample Type Arterial; Carboxyhemoglobin 2.1 %THgb (0.4-20.1); Glucose Level-ABG 218.0 mg/dL (70-115); HCO3 ABG 16.5 mmol/L (22-26); Ionized Calcium Level - ABG 1.2 mmol/L (1.1-1.4); Methemoglobin 0.7 % (0.4-1.5); Oxygen Saturation ABG 91.4; PO2 ABG 69.6 mmHg (80.0-100.0); PO2 FiO2 Ratio Arterial Blood 331; Potassium Level - ABG 6.4 mmol/L (3.5-5.0); Sodium Level - ABG 136.0 mmol/L (131-143)
[2025-01-13 12:15] LABS: Hematocrit 39.0 % (37-53); Hemoglobin 11.40 g/dL (11.27-16.99); Mean Corpuscular HGB Conc 29.2 g/dL (30-55); Mean Corpuscular Hemoglobin 32.2 pg (27-33); Mean Corpuscular Volume 110.2 fl (82-101); Nucleated Red Blood Cells % 0 %; Platelet Count 149 10^3/cmm (157-399); Red Blood Count 3.54 10^6/uL (3.85-5.65); White Blood Count 8.51 10^3/uL (3.29-11.43)
[2025-01-13 12:41] LABS: Lactic Sepsis W/Reflex 8.0 mmol/L (0.5-2.2)
[2025-01-13 12:45] LABS: Slide Review Slide Review Perform
[2025-01-13 12:52] LABS: Alanine Aminotransferase 79 U/L (0-41); Albumin Level 4.5 g/dL (3.5-5.2); Alkaline Phosphatase 133 U/L (40-130); Anion Gap 31.6 (5-19); Aspartate Amino Transferase 112 U/L (0-40); Blood Urea Nitrogen 55 mg/dL (8-23); Calcium 9.8 mg/dL (8.5-10.5); Carbon Dioxide 18 mmol/L (22-29); Chloride 95 mmol/L (98-107); Creatinine Clr Calc Pharmacy 13.0583; Globulin 2.1 g/dL (1.3-4.6); Glucose 210 mg/dL (65-115); Lipase 18 U/L (13-60); Magnesium 2.2 mg/dL (1.7-2.3); Osmolality Calculated 307 mOsm/kg (285-295); Sodium 138 mmol/L (136-145); Total Protein 6.6 g/dL (6.6-8.7)
[2025-01-13 12:53] LABS: Troponin(5th) Baseline 159 ng/L (0-15)
[2025-01-13 12:54] LABS: Potassium 6.6 mmol/L (3.5-5.1)
[2025-01-13 13:10] LABS: Troponin 5 2HR 156.5 ng/L (0-15); Troponin 5 2HR Delta -2.5 ABS# (0-10)
[2025-01-13 13:14] LABS: NT Pro B Type Natriuretic Pept 55646 pg/mL (0-450)
--- NOTE | 2025-01-13 13:16 | ECG_ITS ---
[facility] Test Date: 2025-01-13 Pat Name: Valente Renae Department: Room: Gender: Male Convention Services Manager: : 1945 Requested By: Kiana Cain Order Number: [id number] Cervantes MD: Alex De Anda M.D. Measurements Intervals [place] Rate: 82 P: 0 OK: 0 QRS: -55 QRSD: 129 T: 140 QT: 375 QTc: 439 Interpretive Statements ATRIAL FIBRILLATION RIGHT BUNDLE BRANCH BLOCK [120+ ms QRS DURATION, UPRIGHT V1, 40+ ms S IN I/aVL/V4/V5/V6] POSSIBLE LEFT VENTRICULAR HYPERTROPHY [VOLTAGE CRITERIA PLUS LAE OR QRS WIDENING] POSSIBLE ANTERIOR MYOCARDIAL INFARCTION , PROBABLY OLD [30 ms Q WAVE IN V3/V4, OR R < 0.2 mV IN V4] Compared to ECG 01/13/2025 11:42:24 Right bundle-branch block now present Myocardial infarct finding now present Electronically Signed On 01-15-2025 08:54:30 CDT by Alex De Anda M.D. [email or web address]
--- NOTE | 2025-01-13 13:19 | CT_ITS ---
WS: [id number] CT CHEST, ABDOMEN AND PELVIS WITHOUT CONTRAST HISTORY: sepsis. Abnormal chest x-ray TECHNIQUE: Contiguous 5 mm axial imaging performed through the chest, abdomen and pelvis without IV contrast, oral contrast has not been provided. Coronal and sagittal reformats chest. Coronal and sagittal reformats through the abdomen and pelvis. All CT scans at [facility] use at least one of these dose optimization techniques: automated exposure control; mA and/or kV adjustment per patient size (includes targeted exams where dose is matched to clinical indication); or iterative reconstruction. CONTRAST: None DLP: 1147.43 mGy.cm COMPARISON: Chest radiograph 01/13/2025. Prior CT 12/03/[address]: Small bilateral pleural effusions. Slightly increased in size since 12/03/2024. There are mild dependent changes and pulmonary edema scattered throughout both lungs. 8 mm nodule LEFT upper lobe is unchanged. Slight increase in size since 05/03/2021. Mild cardiomegaly. Prior CABG. Extensive tangirnaq coronary artery calcifications. Calcified mediastinal and hilar lymph nodes. Numerous small lymph nodes noted within the mediastinum. These may be reactive. Early or treated neoplastic disease is not excluded. These lymph nodes have been present for several years, 05/03/[address] very [address] findings. Abdomen CT: Cholelithiasis. Normally distended gallbladder. Splenic and hepatic granulomata. Normal pancreas. Partially calcified mass associated with the RIGHT kidney with long-term stability. No renal obstruction. Reidentified is a solid mass in the LEFT renal pelvis measuring at least 4.0 x 3.2 cm which has been previously described and increasing in size since 2020. Cannot further evaluate without three-phase CT evaluation. Moderate atherosclerosis aorta. No GI tract obstruction. No ascites. No adenopathy. Pelvic CT: Dense calcification in the iliac arteries. Urinary bladder is only minimally distended. There is a tiny amount of free fluid in the pelvis. No adenopathy. No destructive bone lesions. CT/[place] [id number] IMPRESSION: 1. Small bilateral pleural effusions have slightly increased in size since 11/21. 2. Long-term stability noncalcified but well-circumscribed 8 mm nodule LEFT up per lobe. 3. Long-term stability peripherally calcified mass RIGHT kidney. 4. Increasing size of the solid mass in the LEFT renal pelvis since 2020. Jany ot be further evaluated without IV contrast and renal mass CT protocol. This is a known mass. 5. Numerous small mediastinal and hilar lymph nodes. These have been present f or several years with minimal change. Reactive or secondary to patient's known leukemia. 6. Cholelithiasis without evidence for acute cholecystitis by noncontrast CT.
[2025-01-13] MEDS: insulin regular-human 100 units/1 mL 10 UNIT IVP (13:27)
[2025-01-13] MEDS: calcium gluconate 0.1 gm/mL 10% SDV 10mL 1 GM IVP (13:29)
[2025-01-13 13:58] LABS: Reflex Lactate Order REFLEX LACTIC ORDERD
[2025-01-13] MEDS: linezolid premix 600 MG/300 ML PREMIX 300 MG IV (14:02)
--- NOTE | 2025-01-13 14:13 | PM.CONSULT ---
Providers/Reason For Consult Consulting Physician/Specialty*: [facility]/Nephrology Reason for Consult*: ESRD Primary Care Provider: Paula Sandoval MD History of Present Illness History of Present Illness Valente Renae is a 79 year old male Patient is 79-year-old male with past medical history of end-stage renal disease on dialysis, diabetes, hypertension, history of patient is 79-year-old male with past medical history significant for end-stage renal disease on dialysis, diabetes, hypertension, chronic anemia, history of CLL presented to the emergency department with complaints of shortness of breath and generalized weakness. Patient is on TTS schedule for dialysis. Labs reviewed. Review of Systems Narrative: NEGATIVE Medications/Allergies Home Medications ?Medication ?Instructions ?Recorded ?Confirmed ?Last Taken ?Type docusate sodium 100 mg capsule 100 mg PO BID PRN Constipation 12/02/19 01/13/25 01/12/25 History (Colace) cholecalciferol (vitamin D3) 25 50 mcg PO DAILY 12/14/20 01/13/25 01/12/25 History mcg (1,000 unit) capsule diclofenac sodium 1 % topical gel 4 g topical QID PRN Pain 05/02/21 01/13/25 Unknown History insulin regular human 100 unit/mL See Rx Instructions .Route 05/02/21 01/13/25 01/12/25 History injection solution (Novolin R .COMPLEX see pharmacy comments Regular U-100 Insulin) loratadine 10 mg tablet (Claritin) 10 mg PO DAILY 05/02/21 01/13/25 Unknown History tamsulosin 0.4 mg capsule 0.8 mg PO QPM 10/18/21 01/13/25 01/12/25 History fluticasone propionate 50 2 spray intranasal DAILY 07/16/22 01/13/25 Unknown History mcg/actuation nasal spray,suspension (Flonase Allergy Relief) finasteride 5 mg tablet 5 mg PO DAILY 11/20/22 01/13/25 01/12/25 History insulin glargine 100 unit/mL (3 50 unit SUBCUT QAM 11/20/22 01/13/25 01/12/25 History mL) subcutaneous pen sevelamer carbonate 800 mg tablet 800 mg PO TID 05/12/24 01/13/25 Unknown History atorvastatin 80 mg tablet 80 mg PO QPM 01/13/25 01/13/25 01/12/25 18:00 History carvedilol 6.25 mg tablet 6.25 mg PO DAILY 01/13/25 01/13/25 01/12/25 History folic acid 1 mg tablet 1 mg PO DAILY 01/13/25 01/13/25 Unknown History furosemide 80 mg tablet 80 mg PO BID 01/13/25 01/13/25 Unknown History isosorbide mononitrate 30 mg 30 mg PO QAM 01/13/25 01/13/25 01/12/25 History tablet,extended release 24 hr nitroglycerin 0.4 mg sublingual 0.4 mg sublingual Q5M PRN heart 01/13/25 01/13/25 Unknown History tablet issues pantoprazole 40 mg tablet,delayed 40 mg PO BID 01/13/25 01/13/25 01/13/25 07:00 History release pirtobrutinib 50 mg tablet 50 mg PO DAILY 01/13/25 01/13/25 Unknown History Allergies Allergy/AdvReac Type Severity Reaction Status Date / Time allopurinol Allergy ALGY-Rash Verified 07/07/24 10:04 Iodinated Contrast Media Allergy ALGY-Hives Verified 07/07/24 10:04 levofloxacin (From Levaquin) Allergy ADR-Confusi Verified 07/07/24 10:04 on metformin Allergy ADR-Fatigue Verified 07/07/24 10:04 d PFSH Acute PFSH: Medical History (Updated 01/13/25 @ 13:19 by Kiana Valentine MD) Hyperuricemia History of COVID-19 (~12/2020) Anemia, unspecified Complex renal cyst BPH loc w urin obs/LUTS Diabetes HTN (hypertension) ASHD (arteriosclerotic heart disease) Dyslipidemia CKD (chronic kidney disease) CLL (chronic lymphocytic leukemia) Carotid stenosis, bilateral Surgical History H/O removal of testicle S/P appendectomy S/P CABG (coronary artery bypass graft) S/P PTCA (percutaneous transluminal coronary angioplasty) Status cardiac pacemaker Family History Mother , in her 70's Diabetes CAD (coronary artery disease) Father , at age 69 CAD (coronary artery disease) Hypertension Other Cancer Chronic kidney disease (CKD) Stroke Suicide Denies family history of Clotting disorder Dementia Hyperlipidemia Psychiatric illness Anesthesia complication Bleeding disorder Lung disease Social History Smoking and tobacco/nicotine status: former use of tobacco/nicotine Quit status (tobacco/nicotine): has quit using Year quit tobacco: 1989 Alcohol intake: never Substance/Drug Use: never Household members: spouse Marital status: Current occupational status: retired Vitals/I&O/Wt Last Vital Signs Temp 98.4 F 01/13/25 11:17 Pulse 74 01/13/25 14:05 Resp 34 H 01/13/25 14:05 BP 160/66 01/13/25 14:05 Pulse Ox 92 01/13/25 12:55 O2 Del Method Room Air 01/13/25 11:56 Weight last 48 hrs Weight 102.512 kg Physical Exam Narrative: awake , alert no distress peerla S1S2 RRR per report Lungs clear per report abd soft , non tender no edema Data 01/14/25 03:29 01/14/25 03:29 Micro: Microbiology 01/13/25 12:10 Blood Culture - Preliminary Blood SPECIMEN COLLECTED 01/13/25 11:58 Blood Culture - Preliminary Blood SPECIMEN COLLECTED A&P Assessment and plan 1. End stage renal disease on dialysis: Plan: 1. End-stage renal disease: Missed dialysis. For emergent dialysis today and ultrafiltration as tolerated run on the low K dialysate 2. Hyperkalemia: Low K diet, status post medical management and will run on low K dialysate 3. Hypertension: Resume home meds 4. Acute on chronic respiratory failure, in the setting of CHF and volume overload, HD as above and ultrafiltration as tolerated 5. Anemia, monitor and ABI when indicated Patient evaluated using audiovisual cart. Time spent 40 minutes PDMP PDMP Reviewed: Not Reviewed Consult Attestations Medical Necessity Statement: per medicne Coding Level of Care Code Acute Code for Chg Fwd Diagnoses End stage renal disease on dialysis N18.6; Z99.2
--- NOTE | 2025-01-13 14:42 | PC.NURSE ---
Patient transferred from ED to CSU via a bed at 1442.
[2025-01-13 14:55] LABS: Hepatitis B Surface Antigen Non-Reactive (Nonreactive)
--- NOTE | 2025-01-13 15:32 | PC.NURSE ---
Patient left unit for dialysis at 1505.
--- NOTE | 2025-01-13 16:20 | PC.HD ---
Patient with new RAVG. Upon assessment, bruit and thrill very weak. Arterial cannulated without difficulty. Unable to access venous. Needle withdrawn and several very large clots expressed from fistula needle. New needle prepared and venous site was accessed without further difficulty.
--- NOTE | 2025-01-13 16:57 | PM.HP ---
Providers/Chief Complaint Admitting Physician: Cori Beard MD Primary Care Provider: Paula Sandoval MD Chief Complaint: WEAKNESS History of Present Illness Valente Renae is a 79 year old male who looks good and younger than the stated age of 79, presented to the emergency room with complaints of shortness of breath and generalized weakness. Patient is a chronic stage V kidney failure on chronic hemodialysis. Patient presented and during evaluation by myself at the dialysis unit with the dialysis nurse present, I asked him when was the last time he had hemodialysis he said 01/02/2020 5-week and then prior to last week of last week. Patient dialysis days Friday and Friday. Patient returned to do hemodialysis on day 15 being Friday but the access was not working so the he did not do hemodialysis on that day. Patient then had gone through 4 different dialysis days without any hemodialysis till today being 01/13/2025. Today would have been missed dialysis but this is not accounted because patient came to the emergency room with much electrolyte imbalance and had to be admitted to have hemodialysis done today being 2024. The last day patient had hemodialysis was 01/01/2025 and only to resume dialysis today 01/13/2025 missing 4 dialysis days. Patient is alert awake oriented with no confusion and was able to answer all question. Patient related that he started hemodialysis in July 2024 this year. Lab studies done in the emergency room initial troponin was 159 with negative delta. 2-hour troponin was 158.5 with a negative delta of -2.5. 6-hour troponin is 171.5 with a delta of 12.5. Lactate was 4.2, potassium elevated at 6.6, phosphate elevated above 6. proBNP 556,646 White count is normal at 8 hemoglobin 11 Patient had no chest pains but shortness of breath certainly very volume overloaded with electrolyte imbalance patient was admitted immediately to stepdown unit but went straight to the dialysis after just 10 minutes in the room. Patient even at this time is stating hemodialysis and had to see the patient in the dialysis unit. He is doing much better and feels happy that he is being dialyzed. While I was examining him he was constantly coughing. In the emergency room they had given meropenem and Zyvox to the patient. Chest x-ray was with much pulmonary vascular congestion with much fluffy infiltrates pneumonia cannot be ruled out Review of Systems Narrative: System review upon 10 mg review where significant for pulmonary system with shortness of breath. Patient was not hypoxemic Medications/Allergies Home Medications ?Medication ?Instructions ?Recorded ?Confirmed ?Last Taken ?Type docusate sodium 100 mg capsule 100 mg PO BID PRN Constipation 12/02/19 01/13/25 01/12/25 History (Colace) cholecalciferol (vitamin D3) 25 50 mcg PO DAILY 12/14/20 01/13/25 01/12/25 History mcg (1,000 unit) capsule diclofenac sodium 1 % topical gel 4 g topical QID PRN Pain 05/02/21 01/13/25 Unknown History insulin regular human 100 unit/mL See Rx Instructions .Route 05/02/21 01/13/25 01/12/25 History injection solution (Novolin R .COMPLEX see pharmacy comments Regular U-100 Insulin) loratadine 10 mg tablet (Claritin) 10 mg PO DAILY 05/02/21 01/13/25 Unknown History tamsulosin 0.4 mg capsule 0.8 mg PO QPM 10/18/21 01/13/25 01/12/25 History fluticasone propionate 50 2 spray intranasal DAILY 07/16/22 01/13/25 Unknown History mcg/actuation nasal spray,suspension (Flonase Allergy Relief) finasteride 5 mg tablet 5 mg PO DAILY 11/20/22 01/13/25 01/12/25 History insulin glargine 100 unit/mL (3 50 unit SUBCUT QAM 11/20/22 01/13/25 01/12/25 History mL) subcutaneous pen sevelamer carbonate 800 mg tablet 800 mg PO TID 05/12/24 01/13/25 Unknown History atorvastatin 80 mg tablet 80 mg PO QPM 01/13/25 01/13/25 01/12/25 18:00 History carvedilol 6.25 mg tablet 6.25 mg PO DAILY 01/13/25 01/13/25 01/12/25 History folic acid 1 mg tablet 1 mg PO DAILY 01/13/25 01/13/25 Unknown History furosemide 80 mg tablet 80 mg PO BID 01/13/25 01/13/25 Unknown History isosorbide mononitrate 30 mg 30 mg PO QAM 01/13/25 01/13/25 01/12/25 History tablet,extended release 24 hr nitroglycerin 0.4 mg sublingual 0.4 mg sublingual Q5M PRN heart 01/13/25 01/13/25 Unknown History tablet issues pantoprazole 40 mg tablet,delayed 40 mg PO BID 01/13/25 01/13/25 01/13/25 07:00 History release pirtobrutinib 50 mg tablet 50 mg PO DAILY 01/13/25 01/13/25 Unknown History Allergies Allergy/AdvReac Type Severity Reaction Status Date / Time allopurinol Allergy ALGY-Rash Verified 07/07/24 10:04 Iodinated Contrast Media Allergy ALGY-Hives Verified 07/07/24 10:04 levofloxacin (From Levaquin) Allergy ADR-Confusi Verified 07/07/24 10:04 on metformin Allergy ADR-Fatigue Verified 07/07/24 10:04 d PFSH Acute PFSH: Medical History (Updated 01/13/25 @ 13:19 by Kiana Valentine MD) Hyperuricemia History of COVID-19 (~12/2020) Anemia, unspecified Complex renal cyst BPH loc w urin obs/LUTS Diabetes HTN (hypertension) ASHD (arteriosclerotic heart disease) Dyslipidemia CKD (chronic kidney disease) CLL (chronic lymphocytic leukemia) Carotid stenosis, bilateral Surgical History H/O removal of testicle S/P appendectomy S/P CABG (coronary artery bypass graft) S/P PTCA (percutaneous transluminal coronary angioplasty) Status cardiac pacemaker Family History Mother , in her 70's Diabetes CAD (coronary artery disease) Father , at age 69 CAD (coronary artery disease) Hypertension Other Cancer Chronic kidney disease (CKD) Stroke Suicide Denies family history of Clotting disorder Dementia Hyperlipidemia Psychiatric illness Anesthesia complication Bleeding disorder Lung disease Social History Smoking and tobacco/nicotine status: former use of tobacco/nicotine Quit status (tobacco/nicotine): has quit using Year quit tobacco: 1989 Alcohol intake: never Substance/Drug Use: never Household members: spouse Marital status: Current occupational status: retired Vitals/I&O/Wt Last Vital Signs Temp 97.5 F L 01/13/25 16:15 Pulse 79 01/13/25 16:15 Resp 18 01/13/25 16:15 BP 157/72 01/13/25 16:15 Pulse Ox 93 01/13/25 14:31 O2 Del Method Room Air 01/13/25 11:56 01/13/25 01/13/25 01/13/25 06:59 14:59 22:59 Intake Total 350 / 350 Balance 350 / 350 Weight last 48 hrs Weight 102.512 kg Physical Exam Narrative: Generally patient looks good for 79 years old very good skin. And does not look ill-appearing. Patient is supine in the dialysis unit where he was getting hemodialysis and tells me he is comfortable. HEENT normocephalic/atraumatic neck neck is supple cardiovascular heart rate is regular lungs are clear but diminished at the bases. Abdomen is obese abdomen has good bowel sounds no tenderness. unremarkable extremities are intact with trace edema. Neurology has no focality patient is alert awake oriented x 3. Data 01/13/25 11:58 01/13/25 11:58 Micro: Microbiology 01/13/25 12:10 Blood Culture - Preliminary Blood SPECIMEN COLLECTED 01/13/25 11:58 Blood Culture - Preliminary Blood SPECIMEN COLLECTED A&P Assessment and plan 1. Dyspnea: Patient with shortness of breath as the main reason for presentation in the setting of volume overload Patient is pulse oxing well in the high 90s was never hypoxemic Patient had dry cough Blood culture done in the emergency room Antibiotics given in the emergency room because is hard to rule out pneumonia because of fluffy infiltrates 2. Pulmonary edema: Patient was immediately taken to hemodialysis for an acute hemodialysis for 4 hours. Will continue to follow through and optimize Milner thing is to do blood work in the morning after hemodialysis No lab work should be done right after hemodialysis because it will not be accurate Will continue to follow through and optimize 3. Acute hyperkalemia: Potassium was 6.6 Patient received Kayexalate in the emergency room and also received calcium gluconate to stabilize the heart membrane Must continue to monitor and dialysis is the goal 4. Lactic acidosis: Patient is with lactic acidosis with 4.2 lactate This will also come down after hemodialysis 5. End stage renal disease on dialysis: Patient indeed is a stage IV chronic renal failure on chronic hemodialysis started since July 2024 at the very initial time. Patient dialysis days are Tuesdays and Saturdays 6. Anemia: Patient is mildly anemic hemoglobin between 11 and 12 Continue to monitor 7. Fatigue: Fatigability because of metabolic acidosis and of the derangement that comes with volume overload and toxins in the renal failure unable to excrete the toxic metabolites. 8. HTN (hypertension): Patient was hypertensive upon arriving med through hemodialysis the blood pressure is down down to the 140s to 150s systolic 9. Diabetes: Diabetes type 2 Getting hemoglobin A1c for care and optimization whether inpatient or outpatient 10. S/P CABG (coronary artery bypass graft): Patient is with coronary artery disease and had been post CABG Patient troponin is extremely high especially with a 6-hour troponin with a delta of 12 It is a normal fact that the kidney is not excreting the troponin and the accumulates and elevated bili with a patient with much coronary artery disease and who does not take care of himself and also diabetic he may not have chest pain I will escalate this by having cardiology consulted to through any input on this. Because patient does not have any other issues I will not follow through with doing heparin drip for now I will defer this to cardiology and will follow through according to recommendation. Dr. Wilson is on-call will be calling at this time to follow-up. Plan: GI DVT prophylaxis in place PDMP PDMP Reviewed: Not Reviewed Attestations Medical Necessity Statement*: Patient has much multiple medical problem with electrolyte imbalance volume overload requiring hemodialysis that would be an acute hemodialysis patient had not have dialysis missing for days of hemodialysis will need at least 2 midnights stay in the hospital qualifying him for inpatient care. Coding Level of Care Code 84052 Diagnoses Dyspnea R06.00 Pulmonary edema J81.1 Acute hyperkalemia E87.5 Lactic acidosis E87.20 End stage renal disease on dialysis N18.6; Z99.2 Anemia D64.9 Fatigue R53.83 HTN (hypertension) I10 Diabetes E11.9 S/P CABG (coronary artery bypass graft) Z95.1 Time Spent (min) 60
[2025-01-13 17:07] LABS: Lactic Acid level (Lactate) 4.2 mmol/L (0.5-2.2)
--- NOTE | 2025-01-13 17:16 | ECG_ITS ---
"[employer] | [employer] Test Date: 2025-01-13 Pat Name: Valente Renae Department: Room: 102 Gender: Male Physician President: : 1945 Requested By: Kiana Cain Order Number: [id number] Cervantes MD: Alex De Anda M.D. Measurements Intervals [place] Rate: 81 P: 21 DC: 283 QRS: -57 QRSD: 140 T: 134 QT: 421 QTc: 490 Interpretive Statements ATRIAL FIBRILLATION ELECTRONIC VENTRICULAR PACEMAKER -- CONTOUR ANALYSIS BASED ON INTRINSIC RHYTHM RIGHT BUNDLE BRANCH BLOCK [120+ ms QRS DURATION, UPRIGHT V1, 40+ ms S IN I/aVL/V4/V5/V6] LEFT VENTRICULAR HYPERTROPHY AND ST-T CHANGE [VOLTAGE CRITERIA PLUS ST/T ABNORMALITY] INFERIOR MYOCARDIAL INFARCTION , PROBABLY OLD [40+ ms Q WAVE AND/OR ST/T ABNORMALITY IN II/aVF] Compared to ECG 01/13/2025 14:02:08 ST (T wave) deviation now present Atrial fibrillation no longer present Myocardial infarct finding still present Electronically Signed On 01-15-2025 08:52:43 CDT by Alex De Anda M.D. [email or web address]"
--- NOTE | 2025-01-13 18:05 | PC.NURSE ---
Addendum entered by Rebecca Gilmore RN 01/13/25 18:19: Provider updated. Original Note: Daughter called and wanted the provider to know that Valente did have dialysis on January 06 and FridayJanuary 11. Valente did also go to dialysis on FridayJanuary 08 but the nurse tried 3 times but was unable to access his graft.
[2025-01-13 18:21] LABS: Troponin 5 6HR 171.5 ng/L (0-15); Troponin 5 6HR Delta 12.5 ng/L (0-12)
--- NOTE | 2025-01-13 20:28 | PC.NURSE ---
Addendum entered by Radha Whitney RN 01/14/25 07:36: Nicole HEATON notified this RN after patient got back from diaylsis that patient had 300cc in and 3800cc out. Original Note: Patient back from dialysis, received brief report from iNcole HEATON. Patient tolerated procedure well and got 3.5L off.
[2025-01-13] MEDS: heparin 5,000 unit/mL INJ 1 mL 5000 UNIT SUBCUT (21:43)
[2025-01-13] MEDS: guaiFENesin 100 mg/5 mL UDC 10 mL 200 MG PO (21:43)
[2025-01-14] VITALS: BP 145/75; PULSE 100; RESP 27; TEMP 36.7; O2SAT 95
[2025-01-14] MEDS: guaiFENesin 100 mg/5 mL UDC 10 mL 200 MG PO ×2 (01:46→08:37)
[2025-01-14 04:00] VITALS: BP 117/55; PULSE 87; RESP 23; TEMP 36.5; O2SAT 94
[2025-01-14 04:30] LABS: Hematocrit 34.6 % (37-53); Hemoglobin 10.60 g/dL (11.27-16.99); Mean Corpuscular HGB Conc 30.6 g/dL (30-55); Mean Corpuscular Hemoglobin 32.5 pg (27-33); Mean Corpuscular Volume 106.1 fl (82-101); Nucleated Red Blood Cells % 0.7 %; Platelet Count 89 10^3/cmm (157-399); Red Blood Count 3.26 10^6/uL (3.85-5.65); White Blood Count 6.06 10^3/uL (3.29-11.43)
[2025-01-14 04:45] LABS: Estmated Average Glucose 154; Hemoglobin A1C 7.0 % (4.0-6.0)
[2025-01-14 04:52] LABS: Cholesterol 80 mg/dL (0-200); HDL Cholesterol 43 mg/dL (60-100); Triglycerides 87 mg/dL (0-150)
[2025-01-14 04:56] LABS: Albumin Level 3.9 g/dL (3.5-5.2); Alkaline Phosphatase 167 U/L (40-130); Anion Gap 20.2 (5-19); Blood Urea Nitrogen 35 mg/dL (8-23); Calcium 9.2 mg/dL (8.5-10.5); Carbon Dioxide 26 mmol/L (22-29); Chloride 94 mmol/L (98-107); Creatinine Clr Calc Pharmacy 18.0308; Globulin 2.3 g/dL (1.3-4.6); Glucose 145 mg/dL (65-115); Magnesium 2.0 mg/dL (1.7-2.3); Osmolality Calculated 293 mOsm/kg (285-295); Potassium 4.2 mmol/L (3.5-5.1); Slide Review Slide Review Perform; Sodium 136 mmol/L (136-145); Thyroid Stimulating Hormone 2.74 uIU/mL (0.27-4.20); Total Protein 6.2 g/dL (6.6-8.7)
[2025-01-14 05:08] LABS: Alanine Aminotransferase 1011 U/L (0-41)
[2025-01-14 05:11] LABS: Aspartate Amino Transferase 1507 U/L (0-40)
[2025-01-14 07:33] VITALS: BP 113/50; PULSE 93; RESP 16; TEMP 36.6; O2SAT 96
--- NOTE | 2025-01-14 07:33 | PC.NURSE ---
Notifed Dr. Nichols regarding patient plt drop from 149 to 89. Patient has heparin scheduled this morning. Clarifying if MD wants heparin to be held. Received orders not to hold heparin.
[2025-01-14] MEDS: heparin 5,000 unit/mL INJ 1 mL 5000 UNIT SUBCUT (08:37)
--- NOTE | 2025-01-14 09:01 | P.PN_ITS ---
Subjective 2 Subjective: s/p HD yesterday Medications: Reviewed: Yes Vitals/I&O/Wt Last Vital Signs Temp 97.8 F 01/14/25 07:33 Pulse 93 01/14/25 07:33 Resp 16 01/14/25 07:33 BP 113/50 01/14/25 07:33 Pulse Ox 96 01/14/25 07:33 O2 Del Method Nasal Cannula 01/14/25 07:33 01/13/25 01/14/25 01/14/25 22:59 06:59 14:59 Intake Total 475 / 475 240 / 715 240 / 240 Output Total 0 / 0 0 / 0 Balance 475 / 475 240 / 715 240 / 240 Weight last 48 hrs Weight 103.419 kg Weight 102.512 kg Physical Exam 2 Narrative: awake , alert no distress peerla S1S2 RRR per report Lungs clear per report abd soft , non tender no edema Data 01/14/25 03:29 01/14/25 03:29 Micro: Microbiology 01/13/25 12:10 Blood Culture - Preliminary Blood SPECIMEN COLLECTED 01/13/25 11:58 Blood Culture - Preliminary Blood SPECIMEN COLLECTED A&P Assessment and plan 1. End stage renal disease on dialysis: Plan: 1. End-stage renal disease: Missed dialysis.s/p HD yesterday , HD tomorrow 2. Hyperkalemia: Low K diet 3. Hypertension: Resume home meds 4. Acute on chronic respiratory failure, in the setting of CHF and volume overload, HD as above and ultrafiltration as tolerated 5. Anemia, monitor and ABI when indicated Patient evaluated using audiovisual cart. Time spent 40 minutes PDMP PDMP Reviewed: Not Reviewed Attestations 2 Medical Necessity Statement*: per medicine Coding Level of Care Code Acute Code for Chg Fwd Diagnoses End stage renal disease on dialysis N18.6; Z99.2
--- NOTE | 2025-01-14 09:15 | PC.SOCIAL ---
IMM Updated Updated pt & on IMM. No questions voiced. Provided pt a copy. Initialed, dated, & timed a copy & placed in chart.
[2025-01-14 11:37] VITALS: BP 146/66; PULSE 84; RESP 22; TEMP 36.4; O2SAT 96
--- NOTE | 2025-01-14 13:09 | PM.PN ---
Vitals/I&O/Wt Last Vital Signs Temp 97.5 F L 01/14/25 11:37 Pulse 84 01/14/25 11:37 Resp 22 H 01/14/25 11:37 BP 146/66 01/14/25 11:37 Pulse Ox 96 01/14/25 11:37 O2 Del Method Nasal Cannula 01/14/25 11:37 01/13/25 01/14/25 01/14/25 22:59 06:59 14:59 Intake Total 475 / 475 240 / 715 240 / 240 Output Total 0 / 0 0 / 0 Balance 475 / 475 240 / 715 240 / 240 Weight last 48 hrs Weight 103.419 kg Weight 102.512 kg Data 01/14/25 03:29 01/14/25 03:29 Micro: Microbiology 01/13/25 12:10 Blood Culture - Preliminary Blood NEGATIVE TO DATE 01/13/25 11:58 Blood Culture - Preliminary Blood NEGATIVE TO DATE A&P PDMP PDMP Reviewed: Not Reviewed Coding Level of Care Code Acute Code for Chg Fwd
--- NOTE | 2025-01-14 14:34 | P.CONIM_ITS ---
<Statement entered by Alex De Anda M.D - 01/15/25 12:16> Patient was evaluated and cared for in conjunction with an advanced practice practitioner.? I personally examined the patient and reviewed the chart and all pertinent data including imaging, telemetry, and laboratory results.? I discussed the patient in detail with the advanced practice practitioner.? Please see? their note for complete consult note, testing results and agreed upon plan of care for the patient. Patient denies any chest pain. Troponin did not trend up significantly. Secondary to demand ischemia in setting of end-stage renal disease. No further cardiac workup at this time GENERAL: Patient is alert, awake and oriented x3. HEART: Regular S1 and S2 LUNGS: Clear to auscultate bilaterally. CENTRAL NERVOUS SYSTEM: Grossly nonfocal. EXTREMITIES: Lower extremities without edema bilaterally. Providers/Reason For Consult 2 Consulting Physician/Specialty*: Dr De Anda, cardiology Reason for Consult*: Volume overload, elevated troponin Requesting Physician: Cori Beard MD Attending Physician: Cori Beard MD Primary Care Provider: Paula Sandoval MD History of Present Illness History of Present Illness Valente Renae is a 79 year old male with past medical history of CAD status post CABG, hypertension, permanent dual-chamber pacemaker placement due to sick sinus syndrome, CKD, leukemia, diabetes, carotid disease, end-stage renal disease on hemodialysis. He presented to the emergency room 01/13/2025 with weakness, he had missed many dialysis days, last outpatient dialysis was 01/01/2025. He was volume overloaded, BNP was over 55,000 and potassium 6.6. He began hemodialysis immediately. Initial EKG shows paced rhythm. He has an appointment at [facility] on Friday of this coming week for pacemaker generator change to GENA. Since he was dialyzed yesterday he is feeling much better. Review of Systems 2 Const: Denies: fever(s), chills or diaphoresis Eyes: Denies: change in vision ENMT: Denies: epistaxis Card: Denies: chest pain, palpitations, irregular heart rhythm, syncope, pre- syncope, orthopnea or leg pain with exertion Resp: Denies: dyspnea, productive cough or wheezing GI: Denies: nausea, vomiting, hematemesis, hematochezia or melena : Denies: hematuria Madi/Lymph: Denies: easy bruising or easy bleeding Medications/Allergies Home Medications ?Medication ?Instructions ?Recorded ?Confirmed ?Last Taken ?Type docusate sodium 100 mg capsule 100 mg PO BID PRN Const ipation 12/02/19 01/13/25 01/12/25 History (Colace) cholecalciferol (vitamin D3) 25 50 mcg PO DAILY 01/13/25 01/12/25 History mcg (1,000 unit) capsule diclofenac sodium 1 % topical gel 4 g topical QID PRN Pain 05/02/21 01/13/25 Unknown History insulin regular human 100 unit/mL See Rx Instructions .Route 05/02/21 01/13/25 01/12/25 History injection solution (Novolin R .COMPLEX see pharmacy co mments Regular U-100 Insulin) loratadine 10 mg tablet (Claritin) 10 mg PO DAILY 04/2301/13/25 Unknown History tamsulosin 0.4 mg capsule 0.8 mg PO QPM 10/18/2101/1301/12/25 History fluticasone propionate 50 2 spray intranasal DAILY 01/13/25 Unknown History mcg/actuation nasal spray,suspension (Flonase Allergy Relief) finasteride 5 mg tablet 5 mg PO DAILY 11/20/2201/1301/12/25 History insulin glargine 100 unit/mL (3 50 unit SUBCUT QAM 01/13/25 01/12/25 History mL) subcutaneous pen sevelamer carbonate 800 mg tablet 800 mg PO TID 01/13/25 Unknown History atorvastatin 80 mg tablet 80 mg PO QPM 01/13/2501/12/25 18:00 History carvedilol 6.25 mg tablet 6.25 mg PO DAILY 01/13/2501/12/25 History folic acid 1 mg tablet 1 mg PO DAILY 01/13/2501/13 Unknown History furosemide 80 mg tablet 80 mg PO BID 01/13/25 Unknown History isosorbide mononitrate 30 mg 30 mg PO QAM 01/13/2501/12/25 History tablet,extended release 24 hr nitroglycerin 0.4 mg sublingual 0.4 mg sublingual Q5M PRN heart 01/13/25 01/13/25 Unknown History tablet issues pantoprazole 40 mg tablet,delayed 40 mg PO BID 5 01/13/25 01/13/25 07:00 History release pirtobrutinib 50 mg tablet 50 mg PO DAILY 01/13/25 Unknown History Allergies Allergy/AdvReac Type Severity Reaction Status Date / Time allopurinol Allergy ALGY-Rash Verified 07/07/24 10:04 Iodinated Contrast Media Allergy ALGY-Hives Verified 07/07/24 10:04 levofloxacin (From Levaquin) Allergy ADR-Confusi Verified 07/07/24 10:04 on metformin Allergy ADR-Fatigue Verified 07/07/24 10:04 d Current Medications Generic Name Dose Route Start Last Admin Trade Name Freq PRN Reason Stop Dose Admin Famotidine 20 mg 01/14/25 09:00 01/14/25 08:37 Famotidine 20 Mg Tablet PO 20 mg DAILY DIONTE Administration Guaifenesin 200 mg 01/13/25 21:08 01/14/25 08:37 Guaifenesin 100 Mg/5 Ml Udc 10 Ml PO 200 mg Q4H PRN Administration COUGH AND CONGESTION Heparin Sodium (Porcine) 5,000 unit 01/14/25 09:30 01/14/25 08:37 Heparin 5,000 Unit/Ml Inj 1 Ml SUBCUT 5,000 unit Q12H DIONTE Administration PFSH Acute 2 PFSH: Medical History Hyperuricemia History of COVID-19 (~12/2020) Anemia, unspecified Complex renal cyst BPH loc w urin obs/LUTS Diabetes HTN (hypertension) ASHD (arteriosclerotic heart disease) Dyslipidemia CKD (chronic kidney disease) CLL (chronic lymphocytic leukemia) Carotid stenosis, bilateral Surgical History H/O removal of testicle S/P appendectomy S/P CABG (coronary artery bypass graft) S/P PTCA (percutaneous transluminal coronary angioplasty) Status cardiac pacemaker Family History Mother , in her 70's Diabetes CAD (coronary artery disease) Father , at age 69 CAD (coronary artery disease) Hypertension Other Cancer Chronic kidney disease (CKD) Stroke Suicide Denies family history of Clotting disorder Dementia Hyperlipidemia Psychiatric illness Anesthesia complication Bleeding disorder Lung disease Social History Smoking and tobacco/nicotine status: former use of tobacco/nicotine Quit status (tobacco/nicotine): has quit using Year quit tobacco: 1989 Alcohol intake: never Substance/Drug Use: never Household members: spouse Marital status: Current occupational status: retired Vitals/I&O/Wt Last Vital Signs Temp 97.5 F L 01/14/25 11:37 Pulse 84 01/14/25 11:37 Resp 22 H 01/14/25 11:37 BP 146/66 01/14/25 11:37 Pulse Ox 96 01/14/25 11:37 O2 Del Method Nasal Cannula 01/14/25 11:37 01/13/25 01/14/25 01/14/25 22:59 06:59 14:59 Intake Total 475 / 715 240 / 715 240 / 240 Output Total 0 / 0 0 / 0 Balance 475 / 715 240 / 715 240 / 240 Weight last 48 hrs Weight 228 lb Weight 226 lb Physical Exam 2 Const: COMMON NORMALS: no acute distress and patient oriented x3 GENERAL APPEARANCE: cooperative and comfortable ORIENTATION/CONSCIOUSNESS: Yes awake, Yes oriented to person, Yes oriented to place and Yes oriented to time Chest: COMMONS NORMALS: normal inspection of the chest and normal palpation of entire chest wall CHEST: Yes Symmetrical chest wall rise Resp: COMMON NORMALS: normal respiratory effort, No retractions, No use of accessory muscles and clear to auscultation bilaterally EFFORT & INSPECTION: Yes symmetric chest movement AUSCULTATION: clear to auscultation bilaterally Cardio: COMMON NORMALS: regular rate, regular rhythm, S1 normal heart sound present, S2 normal heart sound present, No gallops present (Cardio), No clicks present (Cardio), No murmurs present (Cardio) and No rub (Cardio) RATE: r egular rate RHYTHM: regular rhythm HEART SOUNDS: S1 normal heart sound present and S2 normal heart sound present PERIPHERAL PULSES: radial pulses present Extremity: COMMON NORMALS: no pedal edema Neuro: COMMON NORMALS: patient oriented x3 and moves all extremities S ENSORIUM/ORIENTATION: Yes oriented to person, Yes oriented to place and Yes oriented to time Data 01/14/25 03:29 01/14/25 03:29 Micro: Microbiology 01/13/25 12:10 Blood Culture - Preliminary Blood NEGATIVE TO DATE 01/13/25 11:58 Blood Culture - Preliminary Blood NEGATIVE TO DATE A&P Assessment and plan 1. Elevated troponin: 2. Coronary artery disease: 3. S/P CABG (coronary artery bypass graft): 4. HTN (hypertension): 5. Status cardiac pacemaker: 6. End stage renal disease on dialysis: 7. Pulmonary edema: Plan: He is feeling much better, no longer short of breath, potassium has normalized. Plan is to discharge today, he will attend outpatient dialysis tomorrow. Troponin trend although elevated did not increase, he has not had any chest pain. No new recommendations. Continue atorvastatin, carvedilol, isosorbide mononitrate. PDMP PDMP Reviewed: Not Reviewed Coding Level of Care Code Acute Code for [facility] Fwd Diagnoses Elevated troponin R79.89 Coronary artery disease I25.10 S/P CABG (coronary artery bypass graft) Z95.1 HTN (hypertension) I10 Status cardiac pacemaker Z95.0 End stage renal disease on dialysis N18.6; Z99.2 Pulmonary edema J81.1
--- NOTE | 2025-01-14 15:01 | P.DS_ITS ---
Discharge Providers Date of Admission: 01/13/25 13:42 Date of Discharge: January 14, 2025 Attending Provider at Admission: Cori Beard MD Attending Provider at Discharge: Cori Beard MD Consults: Nephrology Dr. King Primary Care Provider: Paula Sandoval MD Diagnoses at Discharge Discharge Diagnosis 1. End stage renal disease on dialysis: Reason for Visit Reason for Visit: WEAKNESS Hospital Course Hospital Course Valente Renae is a 79 year old male who looks good and younger than the stated age of 79, presented to the emergency room with complaints of shortness of breath and generalized weakness. Patient is a chronic stage V kidney failure on chronic hemodialysis. Patient presented and during evaluation by myself at the dialysis unit with the dialysis nurse present, I asked him when was the last veronica e he had hemodialysis he said 01/02/2020 5-week and then prior to last week of last week. Patient dialysis days Friday and Friday. Patient returned to do hemodialysis on day 15 being Friday but the access was not working so the he did not do hemodialysis on that day. Patient then had gone through 4 different dialysis days without any hemodialysis till today being 01/13/2025. Today would have been missed dialysis but this is not accounted because patient came to the emergency room with much electrolyte imbalance and had to be admitted to have hemodialysis done today being 2024. The last day patient had hemodialysis was 01/01/2025 and only to resume dialysis today 01/13/2025 missing 4 dialysis days. Patient is alert awake oriented with no confusion and was able to answer all question. Patient related that he started hemodialysis in July 2024 this year. Lab studies done in the emergency room initial troponin was 159 with negative delta. 2-hour troponin was 158.5 with a negative delta of -2.5. 6-hour troponin is 171.5 with a delta of 12.5. Lactate was 4.2, potassium elevated at 6.6, phosphate elevated above 6. proBNP 556,646 White count is normal at 8 hemoglobin 11 Patient had no chest pains but shortness of breath certainly very volume overloaded with electrolyte imbalance patient was admitted immediately to stepdown unit but went straight to the dialysis after just 10 minutes in the room. Patient even at this time is stating hemodialysis and had to see the patient in the dialysis unit. He is doing much better and feels happy that he is being dialyzed. While I was examining him he was constantly coughing. In the emergency room they had given meropenem and Zyvox to the patient. Chest x-ray was with much pulmonary vascular congestion with much fluffy infiltrates pneumonia cannot be ruled out Patient doing okay is all volume overload no sign of pneumonia no febrile illness no shortness of breath further no dry cough cough went away. At this time I have called nephrology who had dialyzed this patient yesterday and patient is due to be dialyzed tomorrow being which is the dialysis day patient and she felt that the patient can go home and go for his regular outpatient dialysis all electrolytes are normal patient is not short of breath patient feels great and at this time is being discharged. Patient practically it has been discharged as an observation for 1 day patient improved quickly than expected. Patient to follow-up with the PCP within 1 week and also to follow-up with nephrology on the dialysis day which are Friday and Friday patient also has been instructed to try not to skip dialysis the best way he can. Physical Exam Narrative: Generally patient looks well in no apparent distress HEENT normocephalic atraumatic neck neck is supple cardiovascular heart rate is regular lungs are pretty much clear abdomen soft nontender nondistended unremarkable extremities are intact no edema has good pulses neurology has no focality lab studies lab studies reviewed and noted. Discharge Data Studies Completed and Pending Completed Studies During Hospitalization Category Date Time Status CT chest abdomen pelvis [[place] [id number] Cat Scan 01/13/25 13:19 Completed ] Stat XR chest 1V portable [id number] Stat Exams 01/13/25 11:15 Completed Pending at discharge Category Date Time Status Blood Culture Stat Lab 01/13/25 12:10 Results Complete Blood Count w/Auto AM LABS Lab 01/15/25 04:00 Ordered Complete Blood Count w/Auto AM LABS Lab 01/16/25 04:00 Ordered Comprehensive Metabolic Panel AM LABS Lab 01/15/25 04:00 Ordered Comprehensive Metabolic Panel AM LABS Lab 01/16/25 04:00 Ordered Magnesium AM LABS Lab 01/15/25 04:00 Ordered Magnesium AM LABS Lab 01/16/25 04:00 Ordered Phosphorus AM LABS Lab 01/15/25 04:00 Ordered Phosphorus AM LABS Lab 01/16/25 04:00 Ordered CV. echo complete* [id number] Routine Ultrasound 01/14/25 14:35 Ordered Radiology Impressions Chest X-Ray 01/13/25 11:15 Impression: 1. Development of patchy left lower lobe opacity which could represent pneumonia, atelectasis and/or effusion. 2. Cardiomegaly and small bilateral effusions. 3. No change in cardiac pacemaker. Chest/Abdomen/Pelvis CT 01/13/25 13:19 IMPRESSION: 1. Small bilateral pleural effusions have slightly increased in size since 12/03/2024. 2. Long-term stability noncalcified but well-circumscribed 8 mm nodule LEFT upper lobe. 3. Long-term stability peripherally calcified mass RIGHT kidney. 4. Increasing size of the solid mass in the LEFT renal pelvis since 2020. Cannot be further evaluated without IV contrast and renal mass CT protocol. This is a known mass. 5. Numerous small mediastinal and hilar lymph nodes. These have been present for several years with minimal change. Reactive or secondary to patient's known leukemia. 6. Cholelithiasis without evidence for acute cholecystitis by noncontrast CT. Laboratory Results WBC 6.06 10^3/uL (3.29-11.43) 01/14/25 03:29 Corrected WBC Cancelled 01/13/25 10:55 RBC 3.26 10^6/uL (3.85-5.65) L 01/14/25 03:29 Hgb 10.60 g/dL (11.27-16.99) L 01/14/25 03:29 Hct 34.6 % (37-53) L 01/14/25 03:29 MCV 106.1 fl (82-101) H 01/14/25 03:29 MCH 32.5 pg (27-33) 01/14/25 03:29 MCHC 30.6 g/dL (30-55) 01/14/25 03:29 RDW 18.1 % (12.1-15.1) H 01/14/25 03:29 Plt Count 89 10^3/cmm (157-399) L D 01/14/25 03:29 MPV 10.4 fL (7.4-10.4) 01/14/25 03:29 Gran % Cancelled 01/13/25 10:55 Neut % (Auto) 43.5 % 01/14/25 03:29 Lymph % (Auto) 49.0 % 01/14/25 03:29 [place] % (Auto) 6.8 % 01/14/25 03:29 Eos % (Auto) 0.2 % 01/14/25 03:29 Baso % (Auto) 0.3 % 01/14/25 03:29 Neut # (Auto) 2.64 10^3/uL (1.8-7.7) 01/14/25 03:29 Lymph # (Auto) 3.0 10^3/uL (0.8-4.8) 01/14/25 03:29 [place] # (Auto) 0.4 10^3/uL (0.2-0.9) 01/14/25 03: Eos # (Auto) 0.0 10^3/uL (0.0-0.8) 01/14/25 03:29 Baso # (Auto) 0.0 10^3/uL (0.0-0.1) 01/14/25 03:29 Absolute Gran (auto) Cancelled 01/13/25 10:55 Nucleated RBC % (auto) 0.7 % 01/14/25 03:29 Nucleated RBCs # 0.0 /100WBC 01/14/25 03:29 Specimen Type Arterial 01/13/25 11:44 Sample Site Brachial, left 01/13/25 11:44 ABG pH 7.32 (7.35-7.45) L 01/13/25 11:44 ABG pCO2 31.9 mmHg (35-45) L 01/13/25 11:44 ABG pO2 69.6 mmHg (80.0-100.0) L 01/13/25 11:44 ABG PO2/FiO2 Ratio 331 01/13/25 11:44 ABG HCO3 16.5 mmol/L (22-26) L 01/13/25 11:44 ABG O2 Saturation 91.4 01/13/25 11:44 ABG Base Excess -8.6 mmol/L (-2.0-2.0) L 01/13/25 11:44 Tj Test N/a 01/13/25 11:44 A-a O2 Gradient 5.2 mmHg (5-10) 01/13/25 11:44 Hematocrit 35.5 % (42-52) L 01/13/25 11:44 Hgb O2 Saturation 88.9 % (95-100) L 01/13/25 11:44 Carboxyhemoglobin 2.1 %THgb (0.4-20.1) 01/13/25 11:44 Methemoglobin 0.7 % (0.4-1.5) 01/13/25 11:44 Total Hemoglobin 11.6 g/dL (14-18) L 01/13/25 11:44 Sodium 136.0 mmol/L (131-143) 01/13/25 11:44 Potassium 6.4 mmol/L (3.5-5.0) H 01/13/25 11:44 Glucose 218.0 mg/dL (70-115) H 01/13/25 11:44 Ionized Calcium 1.2 mmol/L (1.1-1.4) 01/13/25 11:44 O2 Delivery Device Room air 01/13/25 11:44 FiO2 21.0 % 01/13/25 11:44 Private Equity Analyst ID [id number] 01/13/25 11:44 Sodium 136 mmol/L (136-145) 01/14/25 03:29 Potassium 4.2 mmol/L (3.5-5.1) 01/14/25 03:29 Chloride 94 mmol/L (98-107) L 01/14/25 03:29 Carbon Dioxide 26 mmol/L (22-29) 01/14/25 03:29 Anion Gap 20.2 (5-19) H 01/14/25 03:29 BUN 35 mg/dL (8-23) H 01/14/25 03:29 Creatinine 4.0 mg/dL (0.7-1.2) H 01/14/25 03:29 GFR Calculation Not Reportable 01/14/25 03:29 Glucose 145 mg/dL (65-115) H 01/14/25 03:29 POC Glucose 263 mg/dL (70-110) H 01/14/25 11:19 Estimat Average Glucose 154 01/14/25 03:29 Hemoglobin A1c 7.0 % (4.0-6.0) H 01/14/25 03:29 Calculated Osmolality 293 mOsm/kg (285-295) 01/14/25 03:29 Lactic Acid 8.0 mmol/L (0.5-2.2) H* 01/13/25 11:58 Lactic Acid (Sepsis) 4.2 mmol/L (0.5-2.2) H* 01/13/25 16:18 Calcium 9.2 mg/dL (8.5-10.5) 01/14/25 03:29 Phosphorus 5.6 mg/dL (2.5-4.5) H 01/14/25 03:29 Magnesium 2.0 mg/dL (1.7-2.3) 01/14/25 03:29 Total Bilirubin 1.7 mg/dL (0.15-1.2) H 01/14/25 03:29 AST 1507 U/L (0-40) H 01/14/25 03:29 ALT 1011 U/L (0-41) H 01/14/25 03:29 Alkaline Phosphatase 167 U/L (40-130) H 01/14/25 03:29 Troponin T Baseline 159 ng/L (0-15) H* 01/13/25 11:58 Troponin T 120 Minute 156.5 ng/L (0-15) H 01/13/25 12:32 Delta Troponin T -2.5 ABS# (0-10) L 01/13/25 12:32 Troponin T Hi Sens 6Hr 171.5 ng/L (0-15) H 01/13/25 17:32 Troponin T Hi Sens 6Hr Delta 12.5 ng/L (0-12) H* 01/13/25 17:32 NT-Pro-B Natriuret Pep 70131 pg/mL (0-450) H 01/13/25 11:58 Total Protein 6.2 g/dL (6.6-8.7) L 01/14/25 03:29 Albumin 3.9 g/dL (3.5-5.2) 01/14/25 03:29 Globulin 2.3 g/dL (1.3-4.6) 01/14/25 03:29 Triglycerides 87 mg/dL (0-150) 01/14/25 03:29 Cholesterol 80 mg/dL (0-200) 01/14/25 03:29 LDL Cholesterol, Calc 20 mg/dL (50-129) L 01/14/25 03:29 HDL Cholesterol 43 mg/dL (60-100) L 01/14/25 03:29 LDL/HDL Ratio 0.47 RATIO (0.00-3.22) 01/14/25 03:29 Cholesterol/HDL Ratio 1.86 mg/dL (1.0-5.00) 01/14/25 03:29 Lipase 18 U/L (13-60) 01/13/25 11:58 TSH 2.74 uIU/mL (0.27-4.20) 01/14/25 03:29 Hep Bs Antigen Non-reactive (Nonreactive) 01/13/25 11:58 Hep Bs Antibody < 3.5 (11.5-1000) L 01/13/25 11:58 Hepatitis C Antibody Non-reactive (Nonreactive) 01/13/25 11:58 Vitals Last Vital Signs Temp 97.5 F L 01/14/25 11:37 Pulse 84 01/14/25 11:37 Resp 22 H 01/14/25 11:37 BP 146/66 01/14/25 11:37 Pulse Ox 96 01/14/25 11:37 O2 Del Method Nasal Cannula 01/14/25 11:37 Discharge Plan Discharge Patient Disposition: Home Condition: Stable Prescriptions: Continued cholecalciferol (vitamin D3) 25 mcg (1,000 unit) capsule 50 mcg PO DAILY sevelamer carbonate 800 mg tablet 800 mg PO TID Rx Instructions: must administer with a meal/food finasteride 5 mg tablet 5 mg PO DAILY insulin glargine 100 unit/mL (3 mL) insulin pen 50 unit SUBCUT QAM docusate sodium [Colace] 100 mg Capsule 100 mg PO BID PRN (Reason: Constipation) fluticasone propionate [Flonase Allergy Relief] 50 mcg/actuation spray,suspension 2 spray INTRANASAL DAILY Novolin R Regular U100 Insulin 100 unit/mL Solution See Rx Instructions .ROUTE .COMPLEX Rx Instructions: sliding scale 3-18 units bid loratadine [Claritin] 10 mg Tablet 10 mg PO DAILY diclofenac sodium 1 % Gel 4 g TOPICAL QID PRN (Reason: Pain) tamsulosin 0.4 mg capsule 0.8 mg PO QPM atorvastatin 80 mg Tablet 80 mg PO QPM carvedilol 6.25 mg tablet 6.25 mg PO DAILY Rx Instructions: 1/2 tab daily but not on dailysis days pirtobrutinib 50 mg Tablet 50 mg PO DAILY furosemide 80 mg Tablet 80 mg PO BID Rx Instructions: twice daily except for dialysis days pantoprazole 40 mg tablet,delayed release (DR/EC) 40 mg PO BID nitroglycerin 0.4 mg Tablet, Sublingual 0.4 mg SUBLINGUAL Q5M PRN (Reason: heart issues) Rx Instructions: do not exceed 3 doses per episode folic acid 1 mg Tablet 1 mg PO DAILY isosorbide mononitrate 30 mg Tablet Extended Release 24 Hr 30 mg PO QAM Electrocardiographic Technician OK for DC: Nephrology and Hospitalist Discharge Order = DC NOW: Discharge Order (Routine); Ordered 01/14/25 Ordered By: Cori Beard Referrals: Paula Sandoval MD [Primary Care Provider, [facility]] - 1-3 days Referral Note: Due to timing of discharge, follow up appt could not be made, please call the office Friday to make a follow up appt in 5-7 days. Discharge Diet: Cardiac Discharge Activity: Resume usual activity Patient Instructions: Opioid Safety, Patient Portal & [place] Instructions Discharge Attestations Time Spent in Discharge Care*: less than 30 min Quality Metrics Clinical Quality Measures [ No reported AMI, CVA or VTE this stay] Coding Level of Care Code 40594 Diagnoses End stage renal disease on dialysis N18.6; Z99.2 Time Spent (min) 30
--- NOTE | 2025-01-14 15:02 | PC.NURSE ---
Kim Pedroza NP cancelled echo due to patient being discharge.
--- NOTE | 2025-01-14 15:11 | PC.NURSE ---
Case management is called and asked to come to the patients room to help with advanced directive paperwork. Patient has a few questions and would like to fill this out prior to leaving.
[2025-01-14 15:54] VITALS: BP 139/78; PULSE 78; O2SAT 94
[2025-01-14 16:00] VITALS: BP 139/78; PULSE 83; RESP 19; TEMP 36.4; O2SAT 98
== END 2025-01-14 16:49 | disposition home or self-care (01) | DRG 640 ==
LOC: ER 13:44 → CSU 14:29
PROVIDERS: Hospitalist; Admitting Provider Internal Medicine; Emergency Provider Emergency Medicine; PCP Family Medicine; Visit Provider Internal Medicine
DX: E87.70 Fluid overload, unspecified (principal); J81.0 Acute pulmonary edema; N18.6 End stage renal disease; I12.0 Hypertensive chronic kidney disease with stage 5 chronic kidney disease or end stage renal disease; C91.10 Chronic lymphocytic leukemia of B-cell type not having achieved remission; I24.89 Other forms of acute ischemic heart disease; E11.22 Type 2 diabetes mellitus with diabetic chronic kidney disease; Z99.2 Dependence on renal dialysis; Z91.158 Patient's noncompliance with renal dialysis for other reason; Z79.4 Long term (current) use of insulin; I48.91 Unspecified atrial fibrillation; D63.1 Anemia in chronic kidney disease; N40.1 Benign prostatic hyperplasia with lower urinary tract symptoms; I25.10 Atherosclerotic heart disease of native coronary artery without angina pectoris; Z95.1 Presence of aortocoronary bypass graft; Z95.5 Presence of coronary angioplasty implant and graft; I65.23 Occlusion and stenosis of bilateral carotid arteries; Z86.16 Personal history of COVID-19; E78.5 Hyperlipidemia, unspecified; Z90.79 Acquired absence of other genital organ(s); Z95.0 Presence of cardiac pacemaker; I49.5 Sick sinus syndrome; E87.20 Acidosis, unspecified; E87.5 Hyperkalemia; Z87.891 Personal history of nicotine dependence
CPT/HCPCS: 36415; 36416; 36600; 71045; 71250; 74176; 80051; 80053; 80061; 82330; 82805; 82962; 83036; 83605; 83690; 83735; 83880; 84100; 84443; 84484; 85025; 86706; 86803; 87040; 87340; 93005; 96365; 96372; 96375; 97163; 97165; 97530; 99291; J0612; J1644; J1815; J2020; J2185; J9999

== ENCOUNTER 2025-02-01 16:37 | Emergency (ER) | payer OTHER, MEDICARE, SELFPAY ==
--- OUTSIDE RECORDS SUMMARY | 2024-12-22 05:30 | XMS_ITS | Encounter Summary ---
Author Name [facility] [place] Organization [facility] [place] [facility] [place] Address [address] [place] [address] Care Team Providers Care Epilepsy Physician Name Role Phone PAULA SANDOVAL Primary Care [...] PART A Feb 21, 2009 PART A [id number] ANGELLA MARTIN PATIENT MEDICARE (WNR) MEDICARE (M) PART B Feb 21, 2009 PART B [id number] [phone] ANGELLA MARTIN PATIENT MEDICARE (WNR) MEDICARE (M) PART A Feb 21, 2009 PART A [id number] ANGELLA MARTIN PATIENT MEDICARE (WNR) MEDICARE (M) PART B Feb 21, 2009 PART B [id number] [phone] ANGELLA MARTIN PATIENT MEDICARE (WNR) MEDICARE (M) PART A Feb 21, 2009 PART A [id number] ANGELLA MARTIN PATIENT MEDICARE (WNR) MEDICARE (M) PART B Feb 21, 2009 PART B [id number] ANGELLA MARTIN PATIENT [place] [employer] [place] [employer] PLAN F MEDIC ARE SUPPL EMENT 2013 PLAN F [id number] [phone] ANGELLA MARTIN PATIENT [place] [place] [employer] [place] SUPPLEMEN [place] MEDIC ARE SUPPL EMENT 2013 PLAN F [id number] [phone] ANGELLA MARTIN PATIENT Selected Encounter This section includes the information on record at [place] for the Encounter. Date/Time Encounter Type Encounter Description Reason Provider Source Dec 22, 2024 10:30 AM OFFICE O/P EST MOD 30 MIN PRIMARY CARE/MEDICINE ICD-10-CM 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 diabetes mellitus with unspecified complications BEVERLY SANDOVAL Encounter Template Text not used by [facility] Assessments - Encounter Diagnoses This section includes the primary and secondary diagnoses documented for the Encounter. Date/Time Primary/Secondary Diagnosis Diagnosis Name Provider Source Dec 30, 2024 01:16 PM PRIMARY Type 2 diabetes mellitus with unspecified complications [facility] Dec 30, 2024 01:16 PM SECONDARY Actinic keratosis [facility] Dec 30, 2024 01:16 PM SECONDARY Allergic rhinitis, unspecified CHRISTI,PAULA [facility] Dec 30, 2024 01:16 PM SECONDARY Athscl heart disease of [place] coronary artery w/o ang pctrs CHRISTIALF [facility] Dec 30, 2024 01:16 PM SECONDARY Benign prostatic hyperplasia without lower urinry tract symp CHRISTI,PAULA [facility] Dec 30, 2024 01:16 PM SECONDARY Cardiomyopathy, unspecified CHRISTI,PAULA [facility] Dec 30, 2024 01:16 PM SECONDARY Cerebral infarction, unspecified [facility] Dec 30, 2024 01:16 PM SECONDARY Chronic kidney disease, stage 4 (severe) [facility] Dec 30, 2024 01:16 PM SECONDARY 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 [facility] Dec 30, 2024 01:16 PM SECONDARY Contact with and exposure to other hazardous substances [facility] Dec 30, 2024 01:16 PM SECONDARY Essential (primary) hypertension [facility] Dec 30, 2024 01:16 PM SECONDARY Gastro-esophageal reflux disease without esophagitis [facility] Dec 30, 2024 01:16 PM SECONDARY Heart failure, unspecified [facility] Dec 30, 2024 01:16 PM SECONDARY Hyperlipidemia, unspecified [facility] Dec 30, 2024 01:16 PM SECONDARY Occlusion and stenosis of bilateral carotid arteries [facility] Dec 30, 2024 01:16 PM SECONDARY Oth transient cerebral ischemic attacks and related synd [facility] Dec 30, 2024 01:16 PM SECONDARY Other specified disorders of kidney and ureter [facility] Dec 30, 2024 01:16 PM SECONDARY Pain in left elbow [facility] Dec 30, 2024 01:16 PM SECONDARY Presence of cardiac pacemaker [facility] Dec 30, 2024 01:16 PM SECONDARY Sensorineural hearing loss, bilateral [facility] Dec 30, 2024 01:16 PM SECONDARY Sick sinus syndrome [facility] Dec 30, 2024 01:16 PM SECONDARY Tinnitus, bilateral [facility] Dec 30, 2024 01:16 PM SECONDARY Type 2 diabetes mellitus with diabetic nephropathy [facility] Dec 30, 2024 01:16 PM SECONDARY Type 2 diabetes mellitus with diabetic polyneuropathy [facility] Dec 30, 2024 01:16 PM SECONDARY Unspecified sensorineural hearing loss [facility] SANDOV[facility] Plan of Treatment: Future Appointments (+ 6 months) and Future Tests (+/- 45 days) The Plan of Treatment section includes future care activities for the patient from all [place] treatmentfacilities. This section includes future appointments and future orders which are active, pending or scheduled. Future Appointments This section includes appointments that were scheduled to occur 6 months from the date of the Encounter, up to a maximum of 20 appointments. The data comes from all [facility]. Appointment Date/Time Appointment Type Appointme nt Facility Name Jan 17, 2025 11:45 AM AMBULATORY - MEDICINE [place] [facility] Feb 02, 2025 08:00 PM AMB[facility]ORY - [facility]IC[facility] [place] [facility] Feb 07, 2025 02:00 PM AMBULATORY - MEDICINE [place] [facility] Jun 13, 2025 08:40 AM AMBULATORY - MEDICINE [facility] Jun 20, 2025 10:00 AM AMBULATORY - MEDICINE [facility] CB Active, Pending, and Scheduled Orders This section includes a listing of several types of active, pending, and scheduled orders, including clinic medications orders, diagnostic test orders, procedure orders and consult orders; where the start date of the order is 45 days before the date of the Encounter or 45 days after the date of theEncounter. The data comes from all [facility]. Test Date/Time Test Type Test Details Facility Name Dec 20, 2024 10:07 AM Consult Order [facility]-HEMATOLOGY/ONC [id number] Cons [employer] Work[employer] 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 Radiology Reports and Pathology Reports are provided separately, in subsequent sections. Lab Results This section contains the Chemistry/Hematology Results that were resulted 30 days before or 30 daysafter the date of the Encounter. Date/Time Source Result Type Result - Unit Interpretation Reference Range Specimen Type Comment Dec 01, 2024 09:24 AM [facility] CB HGA1C BLOOD Specimen Type: BLOOD No comment entered. Ordering Provider: PAULA SANDOVAL Report Released Date/Time: Dec 09, 2023 10:52 AM Reporting Lab: [place] [facility] [address] [facility] [address] Performing Lab: [place] [facility] [address] [facility] [address] HGA1C 7.4 H 4.0-6.0 Dec 01, 2024 09:24 AM [facility] TSH (MA-PB) SERUM Specimen Typ e: SERUM No comment entered. Ordering Provider: PAULA SANDOVAL Report Released Date/Time: Dec 09, 2023 10:52 AM Reporting Lab: [place] [facility] [address] [place] [address] Performing Lab: [place] [facility] [address] [place] [address] TSH 4.243 u[IU]/mL 0.47-5 Dec 01, 2024 09:24 AM [facility] URINE ALBUMIN PROFILE-ih (PB) URINE Specimen Type: URINE No comment entered. Ordering Provider: PAULA SANDOVAL Report Released Date/Time: Dec 09, 2023 10:52 AM Reporting Lab: [place] [facility] [address] [place] [address] Performing Lab: [place] [facility] [address] [place] [address] URINE ALBUMIN (PB-STL) 417.30 mg/L uACR (PB-MA) 346.62 mg/g H 0-30 CREATININE URINE/OTHERS 120.39 mg/dL Dec 01, 2024 09:24 AM [facility] CHOLESTEROL PANEL (PB) PLASMA Specimen Type: P LASMA No comment entered. Ordering Provider: PAULA SANDOVAL Report Released Date/Time: Dec 09, 2023 10:52 AM Reporting Lab: [place] [facility] [address] [place] [address] Performing Lab: [place] [facility] [address] [place] [address] CHOLESTEROL 84 mg/dL 0-200 TRIGLYCERIDE 103 mg/dL 0-150 CALCULATED LDL 27.9 mg/dL HDL(New) 35.5 mg/dL L >40 HDL % OF TOTAL CHOLESTEROL (PB) 42.3 >25 Dec 01, 2024 09:24 AM [facility] COMPREHENSIVE METABOLIC PANEL PLASMA Specimen Type: PLASMA No comment entered. Ordering Provider: PAULA SANDOVAL Report Released Date/Time: Dec 09, 2023 10:52 AM Reporting Lab: [place] [facility] [address] [place] [address] Performing Lab: [place] [facility] [address] [place] [address] CREATININE 3.11 mg/dL H 0.7-1.3 UREA NITROGEN [...] (CKD-EPI 2020) Dec 01, 2024 09:24 AM [facility] CB CBC BLOOD Specimen Type: BLOOD No comment entered. Ordering Provider: PAULA SANDOVAL Report Released Date/Time: Dec 09, 2023 10:52 AM Reporting Lab: [place] [facility] [address] [place] [address] Performing Lab: [facility] WOR[facility] [address] [place] [address] WBC 59.9 10*3/uL H 3.6-11.2 RBC 3.15 [...] 10*3/uL H 0.77-4.50 NEUT#-MDIFF 3.00 10*3/uL 2.10-8.00 Vital Signs: All taken on the encounter date This section contains inpatient and outpatient Vital Signs collected on the date of the Encounter. Date/Time Temperature Pulse Blood Pressure Respiratory Rate SP02 Pain Height Weight Body Mass Index Source Dec 22, 2024 10:59 AM 74 /min 101/46 mm[Hg] 18 /min 94 % 0 230.5 lb 32 [facility] Social History: Smoking Status (Most current) and Tobacco Use (All prior to encounter date) This section includes the most current, and the historical, smoking and tobacco- related health factors from the [place] facility where the Encounter took place. Current Smoking Status This section includes the most current smoking, or tobacco-related health factor, from the PA facility where the Encounter took place. Date/Time Current Smoking Status Comment Facil ity Aug 25, 2024 11:00 AM VA-TOBACCO USE FORMER CIGARETTES [facility] Tobacco Use History This section includes a history of the smoking, or tobacco-related health factors, that were collected on or before the date of the Encounter. The data comes from the [place] facility where the Encounter took place. Date/Time Smoking Status/Tobacco Use Comment F acility Aug 25, 2024 11:00 AM PA-TOBACCO USE FORMER CIGARETTES [facility] Jun 13, 2023 11:00 AM VA-TOBACCO FORMER USER [facility] Jun 13, 2023 11:00 AM VA-TOBACCO QUIT 15 YRS OR MORE [facility] May 22, 2022 10:30 AM VA-TOBACCO FORMER USER [facility] May 22, 2022 10:30 AM VA-TOBACCO QUIT 15 YRS OR MORE [facility] May 24, 2021 09:00 AM VA-TOBACCO NEVER USED [facility] Feb 07, 2020 10:30 AM VA-TOBACCO FORMER USER [facility] Feb 07, 2020 10:30 AM VA-TOBACCO QUIT 15 YRS OR MORE [facility] Aug 04, 2018 03:05 PM VA-TOBACCO FORMER USER [facility] Aug 04, 2018 03:05 PM VA-TOBACCO QUIT 15 YRS OR MORE [facility] Jun 30, 2017 02:33 PM QUIT TOBACCO >7 YEARS AGO [facility] Sep 17, 2012 02:58 PM QUIT TOBACCO >7 YEARS AGO [facility] Nov 30, 2004 09:55 AM CURRENT NON-TOBACCO USER-HX OF [facility] Jul 03, 2004 01:41 PM CURRENT NON-TOBACCO USER-HX OF [facility] Sep 01, 2003 02:24 PM CURRENT NON-TOBACCO USER-HX OF [facility] Sep 16, 2002 10:15 AM CURRENT NON-TOBACCO USER-HX OF [facility] Encounter Notes: All associated encounter notes This section contains the clinical notes associated to the Encounter. Date/Time Encounter Note(s) Provider Source Jan 17, 2025 02:44 PM PRIMARY CARE MEDIC ATION MGT NOTE: LOCAL TITLE: MEDICATION RENEWAL/REFILL PB STANDARD TITLE: PRIMARY CARE MEDICATION MGT NOTE DATE OF NOTE: JAN 17, 2025@14:44 ENTRY DATE: JAN 17, 2025@14:44:41 AUTHOR: NICHOLAS LION COSIGNER: URGENCY: STATUS: COMPLETED NISA MARTIN has contacted the Primary Care Clinic and is requesting that the following prescription(s) be renewed. The patient reports that he/she is currently LOW on his/her supply of medication. He/she is requesting a new supply be mailed by Dec MEDICATION REQUESTED: GLUCOSE SENSOR (FREESTYLE) MISCELLANEOUS GLUCOSE SENSOR FREESTYLE [facility] 2 USE SENSOR EVERY 14 DAYS FOR CONTINUOUS GLUCOSE MONITORING. CHANGE SENSOR/SITE EVERY 14 DAYS. CONTACT [facility] CUSTOMER SERVICE AT ([id number]) FOR REPLACEMENT OF DAMAGED/MALFUNCTIONING SENSORS Quantity: 2 Refills: 11 Indication: FOR BLOOD SUGAR MONITORING Recall visit scheduled? Yes Future visits: 02/02/25 8:00 pm COM CARE-SLEEP STUDY 657 02/07/25 2:00 pm COM CARE-GI GENERAL 65 06/13/25 8:40 am [facility] [facility] [phone] 06/20/25 10:00 am [facility] PCP [phone] ==== The following is informational only for those patients that are on long-term opiate therapy: Opioid Consent: No data available for: CONSENT FOR LONG-TERM OPIOIDS FOR PAIN No drugs in class: CN101 (OPIOID ANALGESICS) Last UDS: Collection DT Specimen Test Name Result Units Ref Range 12/01/2024 09:24 URINE CREATuF 120.39 mg/dL Benzodiazipines: No drugs in class: CN302 (BENZODIAZEPINE DERIVATIVE SEDATIVES/HYPNOTICS) /nichelle/ NICHOLAS LION LPN [facility] Signed: 01/17/2025 14:48 NICHOLAS LION [facility] Dec 22, 2024 11:07 AM PRIMARY CARE PROGR ESS NOTE: LOCAL TITLE: PRIMARY CARE CLINIC PROGRESS NOTE PB STANDARD TITLE: PRIMARY CARE PROGRESS NOTE DATE OF NOTE: DEC 22, 2024@11:07 ENTRY DATE: DEC 22, 2024@11:07:21 AUTHOR: PAULA SANDOVAL EXP COSIGNER: URGENCY: STATUS: COMPLETED PRIMARY CARE CLINIC PROGRESS NOTE PB Has ADDENDA SUBJECTIVE: NISA MARTIN is a 79 years old MALE. HPI: Presents to the clinic today for a periodic health maintenance visit and hospital follow-up. Last seen August 25, 2024 He was recently hospitalized at [facility] on December 03, 2024 and subsequently transferred to [facility] in [place] for an 8-day stent for sepsis related to his dialysis shunt. He had that shunt replaced at the same time he had an echocardiogram which showed EF 20 to 25% and needs an new pacemaker battery but the plan is to actually replace the pacemaker with a pacemaker/defibrillator. He also had a EGD while he was in the hospital at [facility] within none bleeding gastric ulcer that was subsequently biopsied; will try to obtain the biopsy report. He reports increasing shortness of breath dialysis put him on oxygen the other day he rested very well with that and actually was able to sleep. He reports he has not been able to sleep since the hospitalization very well. His reports that they did put oxygen on him at night and he was having apnea spells in the hospital. He has never been tested for sleep apnea before. Nurse did a walking test on him today for oxygen and he maintain O2 sats 96 to 98% while walking on room air. At discharge he was started on prednisone 40 mg to take for 2 weeks in addition to his carvedilol was increased to 6.25 mg twice a day. He usually holds his carvedilol the morning of his dialysis because sometimes it causes low enough blood sugar they do not want to do the dialysis. Non-VA Primary Care Provider Dr. Orozco Specialty [...] pyh ALCOHOL: rarely DRUGS: no HX: BRANCH: [place] 1963-. 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 WHILE ON ACTIVE DUTY: SURGICAL HX: Coronary stents x 2 Appendectomy CABG quad Problem List 1) Type 2 diabetes mellitus (SNOMED CT 36807316) 2) HTN - Hypertension (SNOMED CT 01317670) 3) Coronary artery disease (SNOMED CT 97486870) 4) Diabetic nephropathy 5) HLD - Hyperlipidemia (SNOMED CT 60536953) 6) CLL - Chronic lymphocytic leukemia (SNOMED CT 42049070) 7) Cardiac pacemaker in situ 8) GERD [...] 22) Chronic congestive heart failure 23) Cardiomyopathy 24) Multiple actinic keratoses involving face Active Outpatient Medications (including Supplies): Active Outpatient [...] DOSE WITH RULER ATTACHED INSIDE BOX) 5) FINASTERIDE 5MG TAB TAKE ONE TABLET BY MOUTH ONCE A DAY ACTIVE SWALLOW WHOLE, DO NOT CRUSH, SPLIT, OR CHEW. 6) FLUTICASONE PROP 50MCG 120D NASAL INHL INSTILL 1 SPRAY IN ACTIVE NOSTRIL(S) ONCE A DAY FOR ALLERGIES (MUST BE USED DIRECTED FOR MINIMUM OF 21 DAYS TO PROVIDE ADEQUATE BENEFITS) 7) FOLIC ACID 1MG TAB TAKE ONE TABLET BY MOUTH ONCE A DAY ACTIVE Indication: FOR FOLIC ACID SUPPLEMENTATION 8) GLUCOSE SENSOR FREESTYLE [facility] 2 USE SENSOR EVERY 14 DAYS ACTIVE FOR CONTINUOUS GLUCOSE MONITORING. CHANGE SENSOR/SITE EVERY 14 DAYS. CONTACT [facility]UST[facility] AT ([address] [place] [address]) FOR REPLACEMENT OF DAMAGED/MALFUNCTIONING SENSORS Indication: FOR BLOOD SUGAR MONITORING 9) INSULIN REG HUMAN 100 UNIT/ML NOVOLIN R INJECT 15 UNITS ACTIVE UNDER THE SKIN THREE TIMES A DAY BEFORE MEALS ADMINISTER 30 MINUTES BEFORE FOOD DIRECTED. DISCARD 30 DAYS AFTER OPENING. Indication: FOR DIABETES 10) INSULIN SYRINGE 0.5ML 31G 8MM USE SYRINGE UNDER THE SKIN ACTIVE FOUR TIMES A DAY TO USE WITH INSULIN Indication: FOR DIABETES 11) INSULIN,GLARGINE,HUMAN 100 UNIT/ML INJ INJECT 50 UNITS UNDER ACTIVE THE SKIN EVERY MORNING (AT SAME TIME EACH DAY) - (DISCARD ANY UNUSED PORTION 28 DAYS AFTER OPENING) ### Indication: FOR DIABETES 12) ISOSORBIDE MONONITRATE 30MG SA TAB TAKE ONE TABLET BY MOUTH ACTIVE ONCE A DAY TAKE ON EMPTY STOMACH. SWALLOW WHOLE. DO NOT CRUSH OR CHEW. Indication: FOR CHEST PAIN 13) NITROGLYCERIN 0.4MG SL TAB DISSOLVE ONE TABLET UNDER THE ACTIVE TONGUE ONE-TIME NEEDED; IF NO IMPROVEMENT AFTER FIRST DOSE CALL 9-1-1. MAY TAKE 2 ADDITIONAL DOSES, 5 MINUTES APART Indication: FOR CHEST PAIN 14) OLANZAPINE 10MG TAB TAKE ONE-HALF TABLET BY MOUTH AT BEDTIME ACTIVE NEEDED Indication: FOR ANXIETY 15) SEVELAMER CARBONATE 800MG TAB TAKE ONE TABLET BY MOUTH THREE ACTIVE TIMES A DAY WITH MEAL(S) TAKE WITH FOOD. 16) TAMSULOSIN HCL 0.4MG CAP TAKE TWO CAPSULES BY MOUTH EVERY ACTIVE (S) EVENING APPROXIMATELY 30 MINUTES AFTER THE SAME MEAL EACH DAY (FOR PROSTATE) 17) TORSEMIDE 100MG TAB TAKE ONE TABLET BY MOUTH DIRECTED ON ACTIVE NON-DIALYSIS DAYS (FRIDAY, FRIDAY, FRIDAY, AND FRIDAY) Active Non-VA Medications Status 1) Non-VA ASPIRIN 81MG EC TAB 81MG BY MOUTH ONCE A DAY ACTIVE Indication: FOR CARDIOVASCULAR DISEASE 2) Non-VA FISH OIL 1000MG (500MG DHA/EPA) CAP 2000MG BY MOUTH ACTIVE TWICE A DAY WITH MEALS Indication: FOR HIGH TRIGLYCERIDES 19 Total Medications Allergies: METFORMIN, CONTRAST MEDIA, ALLOPURINOL, [...] [36.6 C] (04/26/2024 15:00) Respiratory Rate: 18 (12/22/2024 10:59) Pulse Rate: 74 (12/22/2024 10:59) Blood Pressure: 101/46 (12/22/2024 10:59) HT: 71.0 in [180.3 cm] (08/25/2024 11:23) WT: 230.5 lb [104.55 kg] (12/22/2024 10:59) BMI: 32.2 94% (12/22/2024 10:59) Physical Exam General: NAD noted, A&Ox3, pleasant, appears stated age HEENT: NCAT, TM's clear, nares and oropharynx clear Neck: Supple with normal active ROM, without any lymphadenopathy Heart: RRR, no murmur, clicks, or rub Resp: Lungs CTA bilaterally, respirations even and unlabored Ext: No clubbing, cyanosis, edema or obvious deformity Skin: Warm, pink, and dry, no rashes Neuro: Grossly intact Psych: Affect normal, answers questions appropriately throughout visit A/P: ASSESSMENT and PLAN Health Maintenance: Labs reviewed with patient and printout given to patient. Discussed preventative health to include diet and exercise as well as immunizations. Recent sepsis with dialysis shunt status post replacement Coronary artery disease/cardiomyopathy EF 20 to 25%/sick sinus syndrome with cardiac pacemaker in situ- with stable angina on carvedilol and isosorbide, followed by cardiology Recurrent TIA's/CVA/Carotid artery narrowing- US results at [facility] showed bilateral carotid 50-60% plaquing; he is on 81mg aspirin q day and Plavix; no recent issues Type 2 diabetes mellitus- much improved; he has the [employer] CGM which is helpful. Will increase Lantus to 45units (from current 40 uits) in the am along with Novolin sliding [...] HTN - controlled with isosorbide and coreg Hyperlipidemia- controlled on atorvastatin CLL - followed by Dr. 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 Discussed medications with patient; med rec [...] received; otherwise f/u as listed below. Follow-up: 12 months with fasting labs prior to appointment [...] to . Time spent 30 minutes. /nichelle/ Paula Sandoval MD [facility] Primary Care Signed: 12/22/2024 17:04 12/22/2024 ADDENDUM STATUS: COMPLETED EGD stomach biopsy report obtained from [facility] which shows gastric and transitional mucosa involved by chronic lymphocytic leukemia/small lymphocytic lymphoma. Results sent to his oncologist that he has an appointment with tomorrow here in [place]. /nichelle/ Paula Sandoval MD [place] [facility] Primary Care Signed: 12/22/2024 17:06 PAULA SANDOVAL [facility] Dec 22, 2024 10:36 AM PRIMARY CARE NURSI MONIKA NOTE: LOCAL TITLE: PRIMARY CARE NURSING PROGRESS NOTE (TEXT) NURSING P STANDARD TITLE: PRIMARY CARE NURSING NOTE DATE OF NOTE: DEC 22, 2024@10:36 ENTRY DATE: DEC 22, 2024@10:36:51 AUTHOR: JC CARDENAS COSIGNER: URGENCY: STATUS: COMPLETED Established Patient NISA MARTIN IS A 79 YEAR OLD MALE BEING SEEN IN CLINIC DEC 22, 2024. == == REASON FOR VISIT: is here for a hospital follow up seen in the ER on 12/18/24, was told that he did not need a blood transfusion. HH was up to 8.9. Did a 3 minute walk test with the Spo2 remained above 95%. [place] reported that he was feeling weak and had to stop. Let the know that he did not qualify for Oxygen at this time. The provider did talk to him about getting tested for need at night. Are you receiving care any where other than the [facility]? No Per [facility] Directive 1605.06, wristband documentation: Patient wristband was removed and destroyed by (staff name) Jenna Cardenas RN and placed in the designated [employer] bin. HEALTH AND SURGICAL HISTORY: Does patient report using home oxygen? No CURRENT ACTIVE MEDICATIONS FOR REVIEW: If the list for review does not include a component, then it was not applicable to this patient. Allergies/ADRs (Tool #5) FACILITY ALLERGY/ADR -------- No Remote Allergy/ADR Data available for this patient [facility] ALLOPURINOL [facility] CONTRAST MEDIA [facility] FLOMAX [facility] METFORMIN Med. Reconciliation (Tool #1) INCLUDED IN THIS LIST: Alphabetical list of active outpatient prescriptions dispensed from this PA (local) and dispensed from another PA or [facility] facility (remote) as well as inpatient orders (local pending and active), local clinic medications, locally documented non-VA medications, and local prescriptions that have or been discontinued in the past 90 days. Non-VA Meds Last Documented On: Sep 17, 2024 NOTE The display of VA prescriptions dispensed from another PA or [facility] facility (remote) is limited to active outpatient prescription entries matched to [facility] File at the originating site and may not include some items such as investigational drugs, compounds, etc. NOT INCLUDED IN THIS LIST: Medications self-entered by the patient into personal health records (i.e. [employer]) are NOT included in this list. Non-VA medications documented outside this [place], remote inpatient orders (regardless of status) and remote clinic medications are NOT included in this list. The patient and provider must always discuss medications the patient is taking, regardless of where the medication was dispensed or obtained. Non-VA ASPIRIN 81MG EC TAB TAKE ONE TABLET BY MOUTH ONCE A DAY PA RX: Patient wants to buy from Non-PA pharmacy Indication: FOR CARDIOVASCULAR DISEASE OUTPT ATORVASTATIN CALCIUM 80MG TAB (Status = Active) TAKE ONE TABLET BY MOUTH EVERY EVENING FOR HIGH CHOLESTEROL TAKE ORALLY WITH EVENING MEAL Rx# [id number] Last Released: 07/05/24 Qty/Days Supply: Rx Expiration Date: 04/27/25 Refills Remainin Indication: FOR HIGH CHOLESTEROL OUTPT CARVEDILOL 6.25MG TAB (Status = Active) TAKE ONE-HALF TABLET BY MOUTH TWICE A DAY FOR HEART FAILURE TAKE WITH FOOD. Rx# [id number] Last Released: 07/21/24 Qty/Days Supply: Rx Expiration Date: 04/27/25 Refills Remainin Indication: FOR HEART FAILURE OUTPT CHOLECALCIF 50MCG (D3-2,000UNIT) TAB (Status = Active) TAKE TWO TABLETS BY MOUTH ONCE A DAY FOR VITAMIN D SUPPLEMENTATION Rx# [id number] Last Released: 11/05/24 Qty/Days Supply: Rx Expiration Date: 04/27/25 Refills [...] DOSE WITH RULER ATTACHED INSIDE BOX) Rx# [id number] Last Released: 09/06/24 Qty/Days Supply: Rx Expiration Date: 04/27/25 Refills Remainin OUTPT FINASTERIDE 5MG TAB (Status = Active) TAKE ONE TABLET BY MOUTH ONCE A DAY SWALLOW WHOLE, DO NOT CRUSH, SPLIT, OR CHEW. Rx# [id number] Last Released: 11/24/24 Qty/Days Supply: Rx Expiration Date: 09/18/25 Refills Remainin Non-VA FISH OIL 1000MG (500MG DHA/EPA) CAP TAKE 2 CAPSULES BY MOUTH TWICE A DAY WITH MEALS Jun 04, 2024 PA RX: Non-VA medication recommended by VA provider [facility] RX: Patient wants to buy from Non-VA pharmacy Indication: FOR HIGH TRIGLYCERIDES OUTPT FLUTICASONE PROP 50MCG 120D NASAL INHL (Status = Active) INSTILL 1 SPRAY IN NOSTRIL(S) ONCE A DAY FOR ALLERGIES (MUST BE USED DIRECTED FOR MINIMUM OF 21 DAYS TO PROVIDE ADEQUATE BENEFITS) Rx# [id number] Last Released: 09/20/24 Qty/Days Supply: Rx Expiration Date: 09/18/25 Refills Remainin OUTPT FOLIC ACID 1MG TAB (Status = Active) TAKE ONE TABLET BY MOUTH ONCE A DAY FOR FOLIC ACID SUPPLEMENTATION Rx# [id number] Last Released: 11/18/24 Qty/Days Supply: Rx Expiration Date: 06/08/25 Refills Remainin Indication: FOR FOLIC ACID SUPPLEMENTATION OUTPT INSULIN REG HUMAN 100 UNIT/ML NOVOLIN R (Status = Active) INJECT 15 UNITS UNDER THE SKIN THREE TIMES A DAY BEFORE MEALS FOR DIABETES ADMINISTER 30 MINUTES BEFORE FOOD DIRECTED. DISCARD 30 DAYS AFTER OPENING. Rx# [id number] Last Released: 09/22/24 Qty/Days Supply: Rx Expiration Date: 09/18/25 Refills Remainin Indication: FOR DIABETES OUTPT INSULIN,GLARGINE,HUMAN 100 UNIT/ML INJ (Status = Active) INJECT 50 UNITS UNDER THE SKIN EVERY MORNING FOR DIABETES (AT SAME TIME EACH DAY) - (DISCARD ANY UNUSED PORTION 28 DAYS AFTER OPENING) ### Rx# [id number] Last Released: 09/30/24 Qty/Days Supply: Rx Expiration Date: 09/18/25 Refills Remainin Indication: FOR DIABETES OUTPT ISOSORBIDE MONONITRATE 30MG SA TAB (Status = Active) TAKE ONE TABLET BY MOUTH ONCE A DAY FOR CHEST PAIN TAKE ON EMPTY STOMACH. SWALLOW WHOLE. DO NOT CRUSH OR CHEW. Rx# [id number] Last Released: 07/07/24 Qty/Days Supply: Rx Expiration Date: 04/27/25 Refills Remainin Indication: FOR CHEST PAIN OUTPT LORATADINE 10MG TAB (Status = ) TAKE ONE TABLET BY MOUTH ONCE A DAY ON EMPTY STOMACH FOR ALLERGIES Rx# [id number] Last Released: 09/10/24 Qty/Days Supply: Rx Expiration Date: 12/08/24 Refills Remainin OUTPT NITROGLYCERIN 0.4MG SL TAB (Status = Active) DISSOLVE ONE TABLET UNDER THE TONGUE ONE-TIME FOR CHEST PAIN NEEDED; IF NO IMPROVEMENT AFTER FIRST DOSE CALL 9-1-1. MAY TAKE 2 ADDITIONAL DOSES, 5 MINUTES APART Rx# [id number] Last Released: 11/23/24 Qty/Days Supply: Rx Expiration Date: 04/20/25 Refills Remainin Indication: FOR CHEST PAIN OUTPT OLANZAPINE 10MG TAB (Status = Active) TAKE ONE-HALF TABLET BY MOUTH AT BEDTIME NEEDED FOR ANXIETY Rx# [id number] Last Released: 04/30/24 Qty/Days Supply: Rx Expiration Date: 04/27/25 Refills Remainin Indication: FOR ANXIETY OUTPT SEVELAMER CARBONATE 800MG TAB (Status = Active) TAKE ONE TABLET BY MOUTH THREE TIMES A DAY WITH MEAL(S) TAKE WITH FOOD. Rx# [id number] Last Released: 11/23/24 Qty/Days Supply: Rx Expiration Date: 04/24/25 Refills Remainin OUTPT TAMSULOSIN HCL 0.4MG CAP (Status = Active) TAKE TWO CAPSULES BY MOUTH EVERY EVENING APPROXIMATELY 30 MINUTES AFTER THE SAME MEAL EACH DAY (FOR PROSTATE) Rx# [id number] Last Released: 04/17/24 Qty/Days Supply: 180/ Rx Expiration Date: 03/20/25 Refills Remainin OUTPT TORSEMIDE 100MG TAB (Status = Active) TAKE ONE TABLET BY MOUTH DIRECTED ON NON-DIALYSIS DAYS (FRIDAY, FRIDAY, FRIDAY, AND FRIDAY) Rx# [id number] Last Released: 09/17/24 Qty/Days Supply: Rx Expiration Date: 09/14/25 Refills Remainin SUPPLIES OUTPT GLUCOSE SENSOR FREESTYLE KIERAN 2 (Status = Active) USE SENSOR EVERY 14 DAYS FOR BLOOD SUGAR MONITORING FOR CONTINUOUS GLUCOSE MONITORING. CHANGE SENSOR/SITE EVERY 14 DAYS. CONTACT [facility] AT ([phone]) FOR REPLACEMENT OF DAMAGED/MALFUNCTIONING SENSORS Rx# [id number] Last Released: 11/25/24 Qty/Days Supply: 08/20 Rx Expiration Date: 12/24/24 Refills Remainin Indication: FOR BLOOD SUGAR MONITORING OUTPT INSULIN SYRINGE 0.5ML 31G 8MM (Status = Active) USE SYRINGE UNDER THE SKIN FOUR TIMES A DAY FOR DIABETES TO USE WITH INSULIN Rx# [id number] Last Released: 05/28/24 Qty/Days Supply: 400/90 Rx Expiration Date: 05/28/25 Refills Remainin Indication: FOR DIABETES PHARMACY TERMS AND POSSIBLE PATIENT ACTIONS INPT = PA inpatient order IV = PA intravenous medication OUTPT = PA outpatient prescription PHARMACY POSSIBLE PATIENT TERMS EXPLANATION ACTIONS -------- ----- ACTIVE A prescription that can be If you have refills, filled at the local [place] pharmacy. you may request a refill of this prescription from your [place] pharmacy. CLINIC A medication you received during If you have questions a visit to a [place] clinic or about this medication emergency department. contact your [place] healthcare team. DISCONTINUED A prescription your provider has Contact your [facility] stopped. It is no longer healthcare team if you available to be sent to you or need more of this picked up at the [place] pharmacy medication. window. A prescription which is [...] the [facility]. Or, it may be an [id number] (OTC), herbal, dietary supplements or sample medication. [...] An active prescription that is Contact your [facility] not scheduled to be filled yet. pharmacy if you need You should receive it before this medication now. you run out. Medication list reviewed with Patient and child care centre director Patient/Caregiver reports taking medications as ordered. IS PATIENT TAKING ANY OVER THE COUNTER MEDICATIONS, SUCH VITAMINS OR HERBAL SUPPLEMENTS, INCLUDING ANY MEDICATIONS PRESCRIBED BY ANOTHER PHYSICIAN? Yes, List: New protonix Does patient have any new allergies to report since last visit? NO VITALS: TEMPERATURE: 97.8 F [36.6 C] (04/26/2024 15:00) BP: 119/66 (08/25/2024 11:23) RESP: 18 (08/25/2024 11:) PULSE: 84 (08/25/2024 11:) HT: 71.0 in [180.3 cm] (08/25/2024 11:) WT: 226.9 lb [102.92 kg] (08/25/2024 11:) BMI: 31.7 PAIN ASSESSMENT: (Most Recent Pain Score in Vitals Package: 0 (04/26/2024 15:00) ) The patient indicated that they and their close contacts have not traveled outside of the [place] in the past 21 days. The patient reports the following symptoms: No symptoms present The patient is immunocompromised. Comment: CLL The patient does not report having a history of Multi Drug Resistant Organism (MDRO) within the last five years. The patient does not report having been exposed to measles, chickenpox, or zoster in last 30 days. Patient reports no pain at this visit. Pain Score = 0. STRESS: Thank you for your service. Now let us serve you. At the [facility], we strive to provide you with exceptional [...] Not At All SPIRITUAL ASSESSMENT: Are there pentecostalism practices or spiritual concerns you want the manager material, your physician, and other health care team members to immediately know about? No Patient advised to call the clinic for any concerns, questions, or symptoms. Patient and/or caregiver verbalized understanding of plan of care. Suicide Screen - V: C-SSRS Screening [place] Suicide Severity Rating Scale (C-SSRS) screener 1. Over the past month, have you wished you were or wished you could go to sleep and not wake up? No 2. Over the past month, have you had any actual thoughts of killing yourself? No 3. Over the past month, have you been thinking about how you might do this? Response not required due to responses to other questions. 4. Over the past month, have you had these thoughts and had some intention of acting on them? Response not required due to responses to other questions. 5. Over the past month, have you started to work out or worked out the details of how to kill yourself? Response not required due to responses to other questions. 6. If yes, at any time in the past month did you intend to carry out this plan? Response not required due to responses to other questions. 7. In your lifetime, have you ever done anything, started to do anything, or prepared to do anything to end your life (for example, collected pills, obtained a gun, gave away valuables, went to the roof but didn't jump)? No 8. If YES, was this within the past 3 months? Response not required due to responses to other questions. Pain Assessment: - PAIN ASSESSMENT: .. Patient reports no pain at this visit. Pain Score = 0. Patient's self identified pain goal: 0 /nichelle/ Jc Cardenas RN,BSN Jewel Mantilla, OMAIRA Signed: 12/27/2024 09:49 [facility]
--- OUTSIDE RECORDS SUMMARY | 2025-01-27 15:39 | XMS_ITS | Encounter Summary ---
Author Name [facility] [place] Organization [facility] [place] Address [address] [place] [address] Care Team Providers Care Manager Agriculture Name Role Phone TATO SANDOVAL Primary Care [...] PART A Feb 21, 2009 PART A [id number] [phone] AGNELLA MARTIN PATIENT MEDICARE (WNR) MEDICARE (M) PART B Feb 21, 2009 PART B [id number] ANGELLA MARTIN PATIENT MEDICARE (WNR) MEDICARE (M) PART A Feb 21, 2009 PART A [id number] ANGELLA MARTIN PATIENT MEDICARE (WNR) MEDICARE (M) PART B Feb 21, 2009 PART B [id number] ANGELLA MARTIN PATIENT MEDICARE (WNR) MEDICARE (M) PART A Feb 21, 2009 PART A [id number] ANGELLA MARTIN PATIENT MEDICARE (WNR) MEDICARE (M) PART B Feb 21, 2009 PART B [id number] ANGELLA MARTIN PATIENT [place] [employer] [place] MED[place] PLAN F MEDIC ARE SUPPL EMENT 2013 PLAN F [id number] [phone] ANGELLA MARTIN PATIENT [place] [employer] [place] MEDICARE SUPPLEMEN [place] MEDIC ARE SUPPL EMENT 2013 PLAN F [id number] [phone] ANGELLA MARTIN PATIENT Selected Encounter This section includes the [place] at [place] for the Encounter. Date/Time Encounter Type Encounter Description Reason Pro vider Source Jan 27, 2025 08:39 PM Outpatient Encounter TELEPHONE TRIAGE IHE Encounter Template [...] The data comes from all [place] [facility]. Appointment Date/Time Appointment Type Appointme nt Facility Name Feb 02, 2025 08:00 PM AMBULATORY - MEDICINE [facility] Feb 07, 2025 02:00 PM AMBULATORY - MEDICINE [facility] Jun 13, 2025 08:40 AM AMBULATORY - MEDICINE [facility] Jun 20, 2025 10:00 AM AMBULATORY - MEDICINE [facility] Active, Pending, and Scheduled Orders This section includes a listing of several types of active, pending, and scheduled orders, including clinic medications orders, diagnostic test orders, procedure orders and consult orders; where the start date of the order is 45 days before the date of the Encounter or 45 days after the date of theEncounter. The data comes from all [facility]. Test Date/Time Test Type Test Details Facility Name Dec 20, 2024 10:07 AM Consult Order COMMUNITY CARE-HEMATOLOGY/ONC [id number] Cons Quantitative Strategy Analyst's Choice [facility] Dec 22, 2024 12:54 PM Consult Order COMMUNITY CARE-GI GENERAL [id number] Cons Quantitative Strategy Analyst's Choice [facility] Dec 22, 2024 05:03 PM Consult Order COMMUNITY CARE-SLEEP [id number] Cons Quantitative Strategy Analyst's Choice [facility] Encounter Notes: All associated encounter notes This section contains the clinical notes associated to the Encounter. Date/Time Encounter Note(s) Provider Source Jan 27, 2025 08:39 PM PHARMACY NOTE: LOCAL TITLE: PHARMACY CONTACT CENTER NOTE STANDARD TITLE: PHARMACY NOTE DATE OF NOTE: JAN 27, 2025@20:39 ENTRY DATE: JAN 27, 2025@20:39:28 AUTHOR: JOSSIE BROWNING EXP COSIGNER: URGENCY: STATUS: COMPLETED MEDICATION RENEW [id number] SUBSTANCE: Who is contacting [facility]? Other Brooke daughter Requesting renewal of medication: LORATADINE 10MG TAB [id number] 12/08/2024 09/09/2024 09/09/2024 0 TATO SANDOVAL 1.17 TAKE ONE TABLET BY MOUTH ONCE A DAY ON EMPTY STOMACH FOR ALLERGIES Contact via: Phone Please send medication: Mail Disposition: Notification forwarded to provider for review of renewal request. /nichelle/ JOSSIE BROWNING CPHT VISN 10 PCC HOLTER SCANNING TECHNICIAN Signed: 01/27/2025 20:39 Receipt Acknowledged By: 01/28/2025 07:36 /anali Sandoval MD [facility] Primary Care JOSSIE BROWNING [facility]
--- OUTSIDE RECORDS SUMMARY | 2025-01-28 10:00 | XMS_ITS | Encounter Summary ---
Author Organization [facility] Address [address] [place] [address] Care Team Providers Care Lens Marker Name Role Phone Paula Sandoval MD Primary Care Provider + [phone] Reason for Visit * Reason Comments Follow Up Encounter Details Date Type Department Care Team (Late st Contact Info) Description 01/28/2025 10:00 AM CDT Video Visit [facility] Cancer and Hematology [place] [address] [address] Lacie Ortiz, [facility] [address] [address] CLL (chronic lymphocytic leukemia) ([facility]/HCC) (Primary Dx); ESRD (end stage renal disease) on dialysis ([facility]) Social History Tobacco Use Types Packs/Day Years [...] Sign Reading Time Taken Comments Blood Pressure - - Pulse - - Temperature - - Respiratory Rate - - Oxygen Saturation - - Inhaled Oxygen Concentration - - Weight - - Height 180.3 cm (5' 11 ) 01/28/2025 9:58 AM CDT Body Mass Index - - documented in this encounter Progress Notes * Lacie Ortiz, PROGRAMMER DEVELOPER - 01/28/2025 10:00 AM CDT Images from the original note were not included. Patient's identity confirmed yes Patient gave verbal consent to have these services billed to their insurance and expressed understanding that co-insurance and deductible may apply: yes Patient was located at home. This encounter was completed via two-way synchronous audio and video communication. [facility] CANCER AND HEMATOLOGY CONSULTATION NOTE Visit Date: 01/28/2025 Valente Renae [id number] ONCOLOGIST: Dr. Umm Dotson PCP: Paula Sandoval [...] for education pirtobrutinib (Jaypirca) He lives in [place] Brooke is also present He recently [...] scheduling since now cath removal is scheduled Interval history through 01/28/2025 Video visit completed with patient and his daughter Brooke for follow-up of his history of CLL/SLL. Ivis have involvement in stomach ulcers and has previously had bleeding from his CLL induced ulcer.Plan was to move forward with oral therapy pirtobrutinib (Jaypirca). He has received this medication however is not in a hurry to get it started. He continues to receive dialysis on Friday, , Friday. he was admitted in the hospital from 01/19 through 01/20 for MDT CRTD upgrade. Patient reports the procedure went well. He did receive 2 units of platelets 1 prior to procedure and wonderinggiven his low platelets. He is scheduled for EGD on 02/07/2025. Reviewed his labs from this week, WBC 19.8, Hgb 9.9, platelets 68, absolute lymphocyte 17,285. Patient reports that overall he feels good. He denies any infectious symptoms. He reports that he is feeling much better. His only complaint is having difficulty getting his sleep regulated. He is scheduled for follow-up with Dr. Alejandro on 02/17. During our visit he voiced that he is not in any hurry to start this new medication. He is comparing it to his previous treatments and how they made him feel. He also has a camping trip coming upon 03/26/2025 and will be gone for 2 weeks. They did find a dialysis office near [place] in which he is able to go to for his dialysis during their trip. He currently denies any bleeding. 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 GERD (gastroesophageal reflux disease) Headache HTN (hypertension) Hyperlipidemia Malignant neoplasm (CMS/HCC) leukemia Motion sickness Peripheral vascular disease Stroke (CMS/HCC) TIA Past Surgical History: Procedure Laterality Date HX APPENDECTOMY HX CORONARY ARTERY BYPASS GRAFT HX ESOPHAGOGASTRODUODENOSCOPY N/A 12/10/2024 ESOPHAGOGASTRODUODENOSCOPY performed by Clinton Ascencio DO at [facility] ENDOSCOPY HX PACEMAKER PLACEMENT medtronic CO ANES TRANSVENOUS INSJ/REPLACEMENT PACING CVDFB N/A 01/19/2025 Pacemaker Upgrade to Biventricular ICD w Anesthesia performed by Sotero Alejandro MD at [facility] INVASIVE CARDIOLOGY CO CRTJ ARVEN FSTL XCP DIR ARVEN ANAST NONAUTOG GRF Right 11/29/2024 ARTERIOVENOUS GRAFT INSERTION performed by Klarissa Flowers MD at [facility] MAIN OR CO INSJ ELTRD CAR SHAKIRA SYS TM INSJ DFB/PM PLS GEN N/A 01/19/2025 Pacemaker Upgrade to Biventricular ICD w Anesthesia performed by Sotero Alejandro MD at [facility] INVASIVE CARDIOLOGY CO REMOVAL PERMANENT PACEMAKER PULSE GENERATOR ONLY N/A 01/19/2025 Pacemaker Upgrade to Biventricular ICD w Anesthesia performed by Sotero Alejandro MD at [facility] INVASIVE CARDIOLOGY is allergic to febuxostat, allopurinol, iodinated contrast media, iodine, levofloxacin, metformin, and quetiapine. Current Outpatient Medications Medication hydrocortisone acetate (ANUSOL-HC) 25 mg Suppository insulin regular (HumuLIN R,NovoLIN R) 100 unit/mL vial insulin glargine (LANTUS) 100 unit/mL injection OLANZapine (ZyPREXA) 10 mg tablet fexofenadine (DYLAN) 180 mg tablet diphenhydrAMINE (BENADRYL) 50 mg capsule predniSONE (DELTASONE) 20 mg tablet pirtobrutinib (Jaypirca) 50 mg Tablet folic acid (FOLVITE) 1 mg tablet pantoprazole [...] mg capsule fluticasone propionate (FLONASE) 50 mcg/spray [place], Suspension nasal inhaler acetaminophen (TYLENOL) 325 mg tablet finasteride (PROSCAR) 5 mg tablet cholecalciferol, Vitamin D3, (VITAMIN D3) 25 mcg (1,000 unit) Capsule insulin glargine (LANTUS) 100 unit/mL pen syringe tamsulosin (FLOMAX) 0.4 mg capsule No current facility-administered medications for this visit. LABORATORY: Lab Results Component Value Date/Time WBC 19.8 (H) 01/24/2025 09:17 AM HGB 9.9 (L) 01/24/2025 09:17 AM HGBPOC 10.1 (L) 03/29/2024 01:39 AM HCT 32.3 (L) 01/24/2025 09:17 AM HCTPOC 30 (L) 03/29/2024 01:39 AM PLT 68 (L) 01/24/2025 09:17 AM MCV 108.8 (H) 01/24/2025 09:17 AM Lab Results Component Value Date/Time NA 140 01/24/2025 09:17 AM K 5.2 01/24/2025 09:17 AM CL 101 01/24/2025 09:17 AM CO2 32 01/24/2025 09:17 AM CA 8.5 (L) 01/24/2025 09:17 AM BUN 38 (H) 01/24/2025 09:17 AM CREAT 4.80 (H) 01/24/2025 09:17 AM GLUCOSE 90 01/24/2025 09:17 AM TOTALPROTEIN 5.4 (L) 01/24/2025 09:17 AM ALBUMIN 3.7 01/24/2025 09:17 AM BILITOTAL 1.2 01/24/2025 09:17 AM ALKPHOS 97 01/24/2025 09:17 AM AST 15 01/24/2025 09:17 AM ALT 19 01/24/2025 09:17 AM ANIONGAP 15 01/20/2025 06:30 AM BCRATIO 8 01/24/2025 09:17 AM Review of Symptoms: As above the remaining 11 review of systems are negative PHYSICAL EXAM: ECOG PERFORMANCE STATUS: There were no vitals taken for this video visit. Ht 5' 11 (1.803 m) BMI 31.27 kg/m?? Constitutional: Appears well-developed, no distress. Eyes: EOM intact, normal-appearing sclera Neck: Supple, normal range of motion Pulmonary/chest: Normal respiratory effort. No stridor Musculoskeletal: Normal range of motion Neurological: Alert and oriented to person place and time, Skin: Color normal Psychiatric: Normal mood and affect. Judgment and thought content normal. 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 Hypertension I10 Stage 4 chronic kidney disease ([facility]/HCC) N18.4 Transient ischemic attack G45.9 Chronic lymphocytic leukemia ([facility]/HCC) C91.10 Type 2 diabetes mellitus with kidney complication, with long-term current use of insulin ([facility]) E11.29, Z79.4 HLD (hyperlipidemia) E78.5 CAD (coronary artery disease) I25.10 History of coronary angioplasty with insertion of stent Z95.5 Hx of CABG Z95.1 Benign prostatic hyperplasia without lower urinary tract symptoms N40.0 Hemoptysis R04.2 Community acquired pneumonia of right upper lobe of lung J18.9 Lesion of right lime kidney N28.9 Acute hypoxic respiratory failure ([facility]/HCC) J96.01 Anemia D64.9 Thrombocytopenia D69.6 Moderate protein malnutrition E44.0 Dilated cardiomyopathy (CMS/HCC) I42.0 Acute combined systolic and diastolic congestive heart failure ([facility]/HCC) I50.41 Acute cystitis N30.00 Severe sepsis with septic shock ([facility] A41.9, R65.21 ESRD (end stage renal disease) on dialysis ([facility]) N18.6, Z99.2 Metabolic acidosis E87.20 Elevated troponin level R79.89 Chronic combined systolic and diastolic CHF (congestive heart failure) ([facility]) I50.42 Ischemic dilated cardiomyopathy ([facility]) I25.5, I42.0 Melena K92.1 Acute blood loss anemia D62 Pacemaker at end of battery life Z45.010 Cardiac pacemaker in situ Z95.0 Cardiac left ventricular ejection fraction 21-40 percent R93.1 Type 2 diabetes mellitus, with long-term current use of insulin ([facility]) E11.9, Z79.4 ASSESSMENT & PLAN: 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 Nila discussed new treatment of Pirtobrutinib He is on dialysis. Friday, , Friday He has had multiple side effects to multiple BTK inhibitors. Plan to start at the lowest dose and move upwards. Dosing is at 200 mg/day. Plan to start at 50 mg daily and see how he does. Reason for treatment is gastric ulcers caused by CLL 01/03/25: Video visit, education He is interested in trying Pirtobrutinib but prefers to hold off until after ICD and PPM battery changed. Needing to have tunneled line removed in order for this to happen-->scheduled to have HD catheter removed on 01/05. Daughter has reached out to Dr Villatoro to see about scheduling of battery change 01/28/2025: - Video visit today with patient and daughter in regards to starting Pirtobrutinib - He has received his pill and has it in hand. - He verbalized that he is not in any hurry to start this - He is scheduled for EGD on 02/07/2025 - Scheduled for follow-up with Dr. Alejandro on 02/17/2025 - He asked that we recheck his labs in 3 to 4 weeks and then to see Dr. Dotson in March about moving forward with starting Pirtobrutinib. - He has a camping trip planned from 03/26/2025 and will be gone for 2 weeks - Will plan to get an appointment with Dr. Dotson with repeat labs for the first week of March before he leaves. - CBC reviewed: 19.8, Hgb 9.9, platelets 68, absolute lymphocyte 17, 285 - CMP reviewed creatinine 4.80, LFTs within normal limits, uric acid 5.9 - Dialysis Friday, and Friday 2. Hx CLL- Dx 2009 3. Thrombocytopenia - Platelets 68,000 4. Dilated cardiomyopathy, chronic combined systolic and diastolic CHF 5. ESRD on dialysis--> Friday, Friday, Friday Hemodialysis: There are no dosage adjustments provided in the ferryboat operator cable's labeling; the effect on pirtobrutinib pharmacokinetics is unknown. 6. History of blood loss anemia due to CLL induced ulcers-->H/H improved (see lab in [facility]) - Hgb 9.9, HCT 32.3 (01/24/25) PLAN: - Patient has his Pirtobrutinib but is not in a hurry to get it started. - Lab only in 3 to 4 weeks CBC, CMP, LDH, uric acid (labs processed through [place] [facility] and drawn at [facility] in [place]). - MD follow-up around 03/23 (Prior to his camping trip on 03/26) CBC, CMP, LDH, uric acid On the day of the visit, I spent 30 minutes providing care to this patient including Preparing to see the patient, Performing a medically appropriate examination and/or evaluation, Counseling and educating the patient/family/caregiver, Ordering medications, tests or procedures, Documenting clinicalinformation in the medical record, Referring and communication with other health plant health care technician(not separately reported), Independently interpreting results and communicating results to the patient/family/caregiver (not separately reported), and Care coordination (not separately reported). ALL Becerra, 01/28/2025 11:01 AM * Linda Fitch - 01/28/2025 9:58 AM CDT Patient's identity confirmed yes Patient gave verbal consent to have these services billed to their insurance and expressed understanding that co-insurance and deductible may apply: yes Patient was located at home. This encounter was completed via two-way synchronous audio and video communication. TOBACCO COUNSELING He is not a tobacco/nicotine user. documented in this encounter Plan of Treatment Upcoming Encounters Date Type Department Care Team (Latest Contact Info) Description 02/07/2025 2:00 PM CDT Hospital Encounter [facility] Endoscopy [address] [place] [address] Clinton Ascencio, DO [address] [place] [address] 02/07/2025 2:00 PM CDT - 02/07/2025 2:20 PM CDT Surgery [facility] Endoscopy [address] [place] [address] Clinton Ascencio, DO [address] [facility] [address] [place] [address] ESOPHAGOGASTRODUODENOSCOPY 02/16/2025 12:30 PM CDT Nurse Only [facility] [address] [place] [address] Sotero Alejandro MD [address] [place] [address] 02/28/2025 10:30 AM CDT Appointment [facility] [address] [place] [address] 03/18/2025 11:30 AM CDT Office Visit [facility] Vascular Surgery [place] [address] [place] [address] Klarissa Flowers MD [address] [place] [address] 03/21/2025 12:05 PM CDT Appointment [facility] Laboratory Services [address] [facility] [address] [place] [phone] 03/21/2025 1:00 PM CDT Office Visit [facility] Cancer and Hematology [place] [address] [facility] [address] [place] [address] Umm Dotson, DO [address] [place] [address] 05/09/2025 1:00 PM ASSOCIATE PROGRAM MANAGER Office Visit [facility] [address] [place] [address] Lyndsey Dorsey, MARCELLO [address], [address] [place] [phone] 07/18/2025 11:00 AM ASSOCIATE PROGRAM MANAGER Office Visit [facility] [address] [place] [address] Sotero Alejandro MD [address] [place] [phone] Eliana Davis, MARCELLO [address], [address] [place] [phone] Scheduled Orders Name Type Priority Associated Diagnoses Orde r Schedule CBC WITH DIFFERENTIAL Lab Routine CLL (chronic lymphocytic leukemia) ([facility]/HCC) Expected: 01/28/2025, Expires: 01/28/2026 COMPREHENSIVE METABOLIC PANEL Lab Routine CLL (chronic lymphocytic leukemia) (CMS/HCC) Expected: 01/28/2025, Expires: 01/28/2026 LACTATE DEHYDROGENASE Lab Routine CLL (chronic lymphocytic leukemia) (CMS/HCC) Expected: 01/28/2025, Expires: 01/28/2026 URIC ACID Lab Routine CLL (chronic lymphocytic leukemia) ([facility]) Expected: 01/28/2025, Expires: 01/28/2026 Scheduled Procedures Name Priority Associated Diagnoses Date/Ti sd ESOPHAGOGASTRODUODENOSCOPY gastric ulcer 02/07/2025 2:00 PM CDT documented as of this encounter Visit Diagnoses Diagnosis CLL (chronic lymphocytic leukemia) ([facility])- Primary Chronic lymphoid leukemia, without mention of having achieved remission ESRD (end stage renal disease) on dialysis ([facility]) End stage renal disease documented in this encounter Care Teams Lens Marker Relationship Specialty Start Date End Date Paula Sandoval MD [address] [place] [phone] PCP - General Family Practice 10/18/24 documented as of this encounter
[2025-02-01] VITALS (16 sets, daily range): BP systolic 87–116; BP diastolic 39–61; PULSE 82–94; RESP 16–24; TEMP 36.9; O2SAT 90–97
--- NOTE | 2025-02-01 16:40 | ECG_ITS ---
[facility] Date: 2025-02-01 Pat Name: Valente Renae Department: Room: Gender: Male Improvement Leader: : 1945 Requested By: Robert Chase Order Number: [id number] Cervantes MD: Miguel Jin M.D. Measurements Intervals Wilder Rate: 90 P: 0 MO: 0 QRS: 261 QRSD: 160 T: 71 QT: 438 QTc: 538 Interpretive Statements ELECTRONIC VENTRICULAR PACEMAKER SINUS RHYTHM Atrial sensed ventricular paced rhythm with premature atrial contraction ABNORMAL RHYTHM ECG Compared to ECG 01/13/2025 17:29:22 Atrial fibrillation no longer present and ventricular paced beats more frequent Electronically Signed On 02-01-2025 21:37:58 CDT by Miguel Jin M.D. [email or web address]
[2025-02-01 17:07] LABS: Hematocrit 37.4 % (37-53); Hemoglobin 11.40 g/dL (11.27-16.99); Mean Corpuscular HGB Conc 30.5 g/dL (30-55); Mean Corpuscular Hemoglobin 33.4 pg (27-33); Mean Corpuscular Volume 109.7 fl (82-101); Nucleated Red Blood Cells % 0 %; Platelet Count 45 10^3/cmm (157-399); Red Blood Count 3.41 10^6/uL (3.85-5.65); White Blood Count 2.04 10^3/uL (3.29-11.43)
[2025-02-01 17:20] LABS: Alanine Aminotransferase 12 U/L (0-41); Albumin Level 4.2 g/dL (3.5-5.2); Alkaline Phosphatase 92 U/L (40-130); Aspartate Amino Transferase 19 U/L (0-40); Blood Urea Nitrogen 13 mg/dL (8-23); Calcium 8.8 mg/dL (8.5-10.5); Carbon Dioxide 24 mmol/L (22-29); Chloride 99 mmol/L (98-107); Creatinine Clr Calc Pharmacy 30.1772; Globulin 1.5 g/dL (1.3-4.6); Osmolality Calculated 281 mOsm/kg (285-295); Sodium 137 mmol/L (136-145); Total Protein 5.7 g/dL (6.6-8.7)
[2025-02-01 17:22] LABS: Anion Gap 17.7 (5-19); Potassium 3.7 mmol/L (3.5-5.1)
[2025-02-01 17:23] LABS: Glucose 36 mg/dL (65-115)
--- NOTE | 2025-02-01 17:52 | XRR_ITS ---
PROCEDURE INFORMATION: Exam: XR Chest Exam date and time: 02/01/2025 6:15 PM Age: 79 years old Clinical indication: Other: Weakness; Prior surgery; Surgery date: 6+ months; Surgery type: Pacemaker, cabg TECHNIQUE: Imaging protocol: Radiologic exam of the chest. Views: 2 views. COMPARISON: CT chest abdpel [id number] 01/13/2025 2:33 PM FINDINGS: Lungs: Unremarkable. No consolidation. Pleural spaces: Unremarkable. No pleural effusion. No pneumothorax. Heart/Mediastinum: Unremarkable. No cardiomegaly. Bones/joints: Unremarkable. XR/XR chest 2V* [id number] IMPRESSION: No acute findings.
[2025-02-01 19:53] LABS: Respiratory Syncytial Virus Ce NEGATIVE (Negative); SARS-CoV-2 PCR NEGATIVE (Negative)
--- NOTE | 2025-02-01 20:43 | W.ED.RECABL ---
HPI - Recheck/Abnormal Lab/Rx General: Chief Complaint: Recheck/Abnormal Lab/Rx Stated Complaint: low bs Time Seen by Provider: 02/01/25 16:45 History of Present Illness: Chief complaint is low blood sugar and confusion. Patient was having her nasal congestion and drainage this morning. He went to dialysis. He did not eat much last night because of his nasal congestion and some decreased appetite. During dialysis he became weak and confused and was found to be hypoglycemic and sent to the emergency department. Patient denies any complaints other than the nasal congestion. No fever. Related Data Home Medications ?Medication ?Instructions ?Recorded ?Confirmed docusate sodium 100 mg capsule 100 mg PO BID PRN Constipation 12/02/19 01/13/25 (Colace) cholecalciferol (vitamin D3) 25 50 mcg PO DAILY 12/14/20 01/13/25 mcg (1,000 unit) capsule diclofenac sodium 1 % topical gel 4 g topical QID PRN Pain 05/02/21 01/13/25 insulin regular human 100 unit/mL See Rx Instructions .Route 05/02/21 01/13/25 injection solution (Novolin R .COMPLEX see pharmacy comments Regular U-100 Insulin) loratadine 10 mg tablet (Claritin) 10 mg PO DAILY 05/02/21 01/13/25 tamsulosin 0.4 mg capsule 0.8 mg PO QPM 10/18/21 01/13/25 fluticasone propionate 50 2 spray intranasal DAILY 07/16/22 01/13/25 mcg/actuation nasal spray,suspension (Flonase Allergy Relief) finasteride 5 mg tablet 5 mg PO DAILY 11/20/22 01/13/25 insulin glargine 100 unit/mL (3 50 unit SUBCUT QAM 11/20/22 01/13/25 mL) subcutaneous pen sevelamer carbonate 800 mg tablet 800 mg PO TID 05/12/24 01/13/25 atorvastatin 80 mg tablet 80 mg PO QPM 01/13/25 01/13/25 carvedilol 6.25 mg tablet 6.25 mg PO DAILY 01/13/25 01/13/25 folic acid 1 mg tablet 1 mg PO DAILY 01/13/25 01/13/25 furosemide 80 mg tablet 80 mg PO BID 01/13/25 01/13/25 isosorbide mononitrate 30 mg 30 mg PO QAM 01/13/25 01/13/25 tablet,extended release 24 hr nitroglycerin 0.4 mg sublingual 0.4 mg sublingual Q5M PRN heart 01/13/25 01/13/25 tablet issues pantoprazole 40 mg tablet,delayed 40 mg PO BID 01/13/25 01/13/25 release pirtobrutinib 50 mg tablet 50 mg PO DAILY 01/13/25 01/13/25 Previous Rx's ?Medication ?Instructions ?Recorded cefdinir 300 mg capsule See Rx Instructions .Route 02/01/25 .COMPLEX 10 days #7 caps Allergies Allergy/AdvReac Type Severity Reaction Status Date / Time allopurinol Allergy ALGY-Rash Verified 02/01/25 16:51 Iodinated Contrast Media Allergy ALGY-Hives Verified 02/01/25 16:51 levofloxacin (From Levaquin) Allergy ADR-Confusi Verified 02/01/25 16:51 on metformin Allergy ADR-Fatigue Verified 02/01/25 16:51 d PFS ED PFSH: Medical History (Updated 02/01/25 @ 20:37 by Ty Lestre MD) Hyperuricemia History of COVID-19 (~12/2020) Anemia, unspecified Complex renal cyst BPH loc w urin obs/LUTS Diabetes HTN (hypertension) ASHD (arteriosclerotic heart disease) Dyslipidemia CKD (chronic kidney disease) CLL (chronic lymphocytic leukemia) Carotid stenosis, bilateral Surgical History H/O removal of testicle S/P appendectomy S/P CABG (coronary artery bypass graft) S/P PTCA (percutaneous transluminal coronary angioplasty) Status cardiac pacemaker Family History Mother , in her 70's Diabetes CAD (coronary artery disease) Father , at age 69 CAD (coronary artery disease) Hypertension Other Cancer Chronic kidney disease (CKD) Stroke Suicide Denies family history of Clotting disorder Dementia Hyperlipidemia Psychiatric illness Anesthesia complication Bleeding disorder Lung disease Social History Smoking and tobacco/nicotine status: former use of tobacco/nicotine Quit status (tobacco/nicotine): has quit using Year quit tobacco: 1989 Alcohol intake: never Substance/Drug Use: never Household members: spouse Marital status: Current occupational status: retired Physical Exam Narrative: EXAM NARRATIVE: Patient is awake but mildly confused. Neck is supple. Conjunctiva is normal. Pupils are reactive. Moist mucous membranes. Heart is regular rhythm. Lung sounds are clear. Mild nasal congestion. Abdomen soft nontender. Extremities warm well-perfused. No calf tenderness. No drift in his arms. He moves his back freely. No tenderness over his neck or back. Course Vital Signs: Vital signs: Vital Signs Temperature 98.4 F 02/01/25 16:49 Pulse Rate 84 02/01/25 21:20 Respiratory Rate 22 H 02/01/25 17:07 Blood Pressure 115/54 02/01/25 21:20 Pulse Oximetry 96 02/01/25 21:20 Oxygen Delivery Me thod Room Air 02/01/25 20:30 MDM - Recheck/Abnormal Lab/Rx Medical Decision Making Patient with some nasal congestion drainage and decreased appetite who had less to eat than normal but took his normal amount of insulin. Patient became hypoglycemic after dialysis. Patient was brought to the emergency department. He did have some low blood pressures and he had a low blood sugar. Patient was given IV glucose and IV fluid bolus. I consulted with Dr. Bauer who agrees with plan and recommends outpatient management after sugars return to normal ranges and after IV fluid bolus. CBC CMP COVID influenza and RSV ordered and chest x-ray and EKG. The daughter is here and she provides majority of the history. She is an excellent historian and states the patient had 2 packs of platelets and replacement of his pacemaker 2 weeks ago. He has been doing well. No pain or swelling at the pacemaker site by history or exam. Patient EKG shows paced rhythm to my interpretation. Chest x-ray is negative for acute process per radiology. White blood cell count is 2 and patient has low neutrophils and low platelets. Patient creatinine elevated consistent with his end-stage renal disease. Potassium is not elevated. Patient's Accu-Cheks show improvement in his blood sugar and he is now eaten. Patient now looks much improved. He is alert talkative smiling and oriented. No further confusion. He is requesting discharge home. He states he feels fine. Patient does occasionally cough. He denies chest pain or shortness of breath or abdominal pain. No abnormal bleeding. No trauma or injury. Patient was afebrile here. I consulted with Dr. Davenport on-call for oncology and he recommends continued outpatient management based on his neutrophil level. Patient follows with oncology in [place] as well. I discussed with daughter and she feels comfortable taking patient home and closely following up on low platelets and low white count. Advised potential for trend to lead to problematic bleeding or neutropenia and importance of close follow-up. No signs of concerning bleeding. Patient has returned to baseline. With his cough I will give him 1 g Rocephin IV and obtain blood cultures and discharged home on cefdinir with prompt outpatient follow-up and return instructions. Sepsis or bacteremia low probability by exam and history. Educated limits of ED evaluation and prompt return follow-up instructions. Patient and daughter are in agreement with plan after informed discussion. They are going to monitor his blood sugars closely and make sure he eats. Lab Data 02/01/25 16:50 02/01/25 16:50 Radiology Impressions Chest X-Ray 02/01/25 17:52 IMPRESSION: No acute findings. Laboratory Results WBC 2.04 10^3/uL (3.29-11.43) L 02/01/25 16:50 RBC 3.41 10^6/uL (3.85-5.65) L 02/01/25 16:50 Hgb 11.40 g/dL (11.27-16.99) 02/01/25 16:50 Hct 37.4 % (37-53) 02/01/25 16:50 MCV 109.7 fl (82-101) H 02/01/25 16:50 MCH 33.4 pg (27-33) H 02/01/25 16:50 MCHC 30.5 g/dL (30-55) 02/01/25 16:50 RDW 18.0 % (12.1-15.1) H 02/01/25 16:50 Plt Count 45 10^3/cmm (157-399) L 02/01/25 16:50 MPV 10.4 fL (7.4-10.4) 02/01/25 16:50 Neut % (Auto) 52.4 % 02/01/25 16:50 Lymph % (Auto) 44.1 % 02/01/25 16:50 [place] % (Auto) 1.0 % 02/01/25 16:50 Eos % (Auto) 1.0 % 02/01/25 16:50 Baso % (Auto) 0.5 % 02/01/25 16:50 Neut # (Auto) 1.07 10^3/uL (1.8-7.7) L 02/01/25 16:50 Lymph # (Auto) 0.9 10^3/uL (0.8-4.8) 02/01/25 16:50 [place] # (Auto) 0.0 10^3/uL (0.2-0.9) L 02/01/25 16:50 Eos # (Auto) 0.0 10^3/uL (0.0-0.8) 02/01/25 16:50 Baso # (Auto) 0.0 10^3/uL (0.0-0.1) 02/01/25 16:50 Nucleated RBC % (auto) 0 % 02/01/25 16:50 Nucleated RBCs # 0.0 /100WBC 02/01/25 16:50 Sodium 137 mmol/L (136-145) 02/01/25 16:50 Potassium 3.7 mmol/L (3.5-5.1) 02/01/25 16:50 Chloride 99 mmol/L (98-107) 02/01/25 16:50 Carbon Dioxide 24 mmol/L (22-29) 02/01/25 16:50 Anion Gap 17.7 (5-19) 02/01/25 16:50 BUN 13 mg/dL (8-23) 02/01/25 16:50 Creatinine 2.4 mg/dL (0.7-1.2) H 02/01/25 16:50 GFR Calculation Not Reportable 02/01/25 16:50 Glucose 36 mg/dL (65-115) L* 02/01/25 16:50 POC Glucose 157 mg/dL (70-110) H 02/01/25 20:09 Calculated Osmolality 281 mOsm/kg (285-295) L 02/01/25 16:50 Calcium 8.8 mg/dL (8.5-10.5) 02/01/25 16:50 Total Bilirubin 2.3 mg/dL (0.15-1.2) H 02/01/25 16:50 AST 19 U/L (0-40) 02/01/25 16:50 ALT 12 U/L (0-41) 02/01/25 16:50 Alkaline Phosphatase 92 U/L (40-130) 02/01/25 16:50 Total Protein 5.7 g/dL (6.6-8.7) L 02/01/25 16:50 Albumin 4.2 g/dL (3.5-5.2) 02/01/25 16:50 Globulin 1.5 g/dL (1.3-4.6) 02/01/25 16:50 Influenza A (PCR) Negative (Negative) 02/01/25 18:00 Influenza Type B (PCR) Negative (Negative) 02/01/25 18:00 RSV (PCR) Negative (Negative) 02/01/25 18:00 SARS-CoV-2 (PCR) Negative (Negative) 02/01/25 18:00 All radiology interpretation(s) finalized by discharge Discharge Plan Discharge Patient Disposition: Home Clinical Impression: Thrombocytopenia, Cough, Acute metabolic encephalopathy due to hypoglycemia Condition: Stable Prescriptions: New cefdinir 300 mg capsule See Rx Instructions .ROUTE .COMPLEX 10 Days Qty: 7 0RF Rx Instructions: 300 mg orally by mouth tomorrow and then after that take one capsule by mouth on dialysis days after dialysis and an additional capsule 48 hours into your 72 hour interdialytic period. A total of 10 days No Action cholecalciferol (vitamin D3) 25 mcg (1,000 unit) capsule 50 mcg PO DAILY sevelamer carbonate 800 mg tablet 800 mg PO TID Rx Instructions: must administer with a meal/food finasteride 5 mg tablet 5 mg PO DAILY insulin glargine 100 unit/mL (3 mL) insulin pen 50 unit SUBCUT QAM docusate sodium [Colace] 100 mg Capsule 100 mg PO BID PRN (Reason: Constipation) fluticasone propionate [Flonase Allergy Relief] 50 mcg/actuation spray,suspension 2 spray INTRANASAL DAILY Novolin R Regular U100 Insulin 100 unit/mL Solution See Rx Instructions .ROUTE .COMPLEX Rx Instructions: sliding scale 3-18 units bid loratadine [Claritin] 10 mg Tablet 10 mg PO DAILY diclofenac sodium 1 % Gel 4 g TOPICAL QID PRN (Reason: Pain) tamsulosin 0.4 mg capsule 0.8 mg PO QPM atorvastatin 80 mg Tablet 80 mg PO QPM carvedilol 6.25 mg tablet 6.25 mg PO DAILY Rx Instructions: 1/2 tab daily but not on dailysis days pirtobrutinib 50 mg Tablet 50 mg PO DAILY furosemide 80 mg Tablet 80 mg PO BID Rx Instructions: twice daily except for dialysis days pantoprazole 40 mg tablet,delayed release (DR/EC) 40 mg PO BID nitroglycerin 0.4 mg Tablet, Sublingual 0.4 mg SUBLINGUAL Q5M PRN (Reason: heart issues) Rx Instructions: do not exceed 3 doses per episode folic acid 1 mg Tablet 1 mg PO DAILY isosorbide mononitrate 30 mg Tablet Extended Release 24 Hr 30 mg PO QAM Discharge Orders: Discharge ED (Routine); Ordered 02/01/25 Ordered By: Ty Lester Referrals: Paula Sandoval MD [Primary Care Provider, Family Practice] Patient Instructions: Opioid Safety, Pain Management, Patient Portal & [place] Instructions Activity Restrictions/Additional Instructions: Contact your oncologist tomorrow for close follow-up to recheck your white count and platelets. Please come back if abnormal bleeding or bruising, bleeding of the gums, return if blood sugar too low, return immediately if fever, confusion, weakness, vomiting, difficulty breathing, any worse or concerning symptoms. Follow-up on your test results with your doctor. Print Language: Serbian Coding Level of Care Code ED [employer]player [employer] for Jordin Moreno
[2025-02-01] MEDS: cefTRIAXone 1,000 mg SDV 1000 MG IVP (21:07)
--- OUTSIDE RECORDS SUMMARY | 2025-02-02 13:08 | XMS_ITS | Continuity of Care Document ---
Author Name [facility] Organization [facility] Care Team Providers Care General Internal Medicine Doctor Name Role Phone [facility] Unavailable Unavailable Problems Combined list of problems from Department of Defense and Veterans Affairs facilities. It does not include entries that were removed or entered in error. Problem Status Onset Date Problem Type Date of Resolution Comments Source Allergic rhinitis Active Condition [place] [facility] Bilateral tinnitus Active Condition [place] [facility] BPH - benign prostatic hyperplasia Active Condition [place] [facility] Cardiac pacemaker in situ Active Condition [place] [facility] Cardiomyopathy Active Condition [place] [facility] Carotid artery narrowing Active Condition Mar 07, 2021 Entered By: TATO BARRAZA Comment: 50-60% bilaterally [place] [facility] Cerebrovascular accident Active Condition Mar 07, 2021 Entered By: TATO BARRAZA Comment: right hemiparesis (COVID) 12/2020 [place] [facility] Chronic congestive heart failure Active Condition Apr 26, 2024 Entered By: TATO BARRAZA Comment: combined [place] [facility] Chronic kidney disease stage 4 Active Condition Apr 26, 2024 Entered By: TATO BARRAZA Comment: hemodialysis T-Th-Sat [place] [facility] CLL - Chronic lymphocytic leukemia (SNOMED CT 20098913) [facility] Coronary artery disease (SNOMED CT 52992116) Active Condition [facility] Diabetic nephropathy Active Condition [facility] Diabetic polyneuropathy Active Condition [place] [facility] Exposure to potentially hazardous substance Active Condition [facility] - Gastro-esophageal reflux disease Active Condition [place] [facility] Hearing loss Active Condition [place] [facility] HLD - Hyperlipidemia (SNOMED CT 95769293) Active Condition [facility] HTN - Hypertension (SNOMED CT 52097938) Active Condition [place] [facility] Multiple actinic keratoses involving face Active Condition [place] [facility] Pain of left elbow joint Active Condition [place] [facility] Renal mass Active Condition Dec 31, 2 024 Entered By: TATO BARRAZA Comment: left; followed by merchandising lead [place] [facility] Sensorineural hearing loss of bilateral ears Active Condition [place] [facility] Sick sinus syndrome Active Condition [place] [facility] TIA Active Condition [place] [facility] Type 2 diabetes mellitus (SNOMED CT 79544847) Active Condition [place] [facility] Acute pancreatitis Inactive Condition 09/04/2020 [place] [facility] Arrhythmia * (ICD-9-CM 427.9) Inactive Condition 07/04/2016 [place] [facility] Family History of Diabetes Mellitus (ICD-9-CM V18.0) Inactive Condition 07/04/2016 [place] [facility] Hypertensive disorder (SNOMED CT 88993656) Inactive Condition 07/04/2016 [facility] Laboratory Examination Ordered as part of a Routine General Medical Examination Inactive Condition 07/04/2016 [facility] Routine General Medical Examination at a Health Care Facility * Inactive Condition 07/04/2016 [facility] Diagnosis: ICD-10-CM C91.10 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 Active Diagnosis [place] [facility] Diagnosis: ICD-10-CM 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 diabetes mellitus with unspecified complications Active Diagnosis [facility] Diagnosis: ICD-10-CM Z46.1 Encounter for fitting and adjustment of hearing aid Active Diagnosis [place] [facility] Diagnosis: ICD-10-CM R09.81 Nasal congestion Active Diagnosis [facility] Diagnosis: ICD-10-CM I50.9 Heart failure, unspecified Active Diagnosis [facility] Diagnosis: ICD-10-CM E78.5 Hyperlipidemia, unspecified Active Diagnosis [facility] Diagnosis: ICD-10-CM R93.89 Abnormal findings on dx imaging of oth body structures Active Diagnosis [facility] Diagnosis: ICD-10-CM H90.3 Sensorineural hearing loss, bilateral Active Diagnosis [place] [facility] Diagnosis: ICD-10-CM Z13.9 Encounter for screening, unspecified Active Diagnosis [place] [facility] Diagnosis: ICD-10-CM Z13.5 Encounter for screening for eye and ear disorders Active Diagnosis [facility] Diagnosis: ICD-10-CM 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 Diagnosis [facility] Diagnosis: ICD-10-CM Z71.89 Other specified counseling Active Diagnosis [facility] Diagnosis: ICD-10-CM H90.5 Unspecified sensorineural hearing loss Active Diagnosis [facility] Diagnosis: ICD-10-CM R10.9 Unspecified abdominal pain Active Diagnosis [facility] Medications Combined list of outpatient [...] A DAY ORAL ACTIVE TATO BARRAZA 2023 [facility] ATORVASTATI N CA 80MG TAB TAKE ONE TABLET BY MOUTH EVERY EVENING FOR HIGH CHOLESTE ROL TAKE ORALLY WITH EVENING MEAL ORAL ACTIVE 04/27/2025 [id number] 5 RADHA PINK [address] [place] [address] [facility] CARVEDILOL 6.25MG TAB TAKE ONE TABLET BY MOUTH TWICE A DAY FOR HEART FAILURE TAKE WITH FOOD. ORAL ACTIVE 12/23/2025 [id number] 5 TATO BARRAZA [address] [address] [facility] CARVEDILOL 6.25MG TAB TAKE ONE-HALF TABLET BY MOUTH TWICE A DAY FOR HEART FAILURE TAKE WITH FOOD. ORAL DISCONT INUED (EDIT) 04/27/2025 [id number] 5 TATO BARRAZA [address] [place] [address] [facility] CHOLECALCIF ZULEYKA 50MCG (2,000UNIT) TAB TAKE TWO TABLETS BY MOUTH ONCE A DAY FOR VITAMIN D SUPPLEME NTATION ORAL ACTIVE 04/27/2025 [id number] 5 TATO BARRAZA [address] [place] [address] [facility] CHOLECALCIF ZULEYKA 50MCG (2,000UNIT) TAB TAKE TWO TABLETS BY MOUTH ONCE A DAY FOR VITAMIN D SUPPLEME NTATION ORAL DISCONT INUED 04/07/2024 [id number] JENY GAMA 2022 180 [place] [facility] CLOPIDOGREL BISULFATE 75MG TAB TAKE ONE TABLET BY MOUTH ONCE A DAY TO THIN BLOOD ORAL 02/06/2024 [id number] CHRISTI TATO 2022 90 [facility] DICLOFENAC NA 1% GEL,TOP APPLY 2 GM TO AFFECTED AREA(S) ONCE A DAY FOR PAIN/INF LAMMATIO N; NOT MORE THAN 16 GRAMS DAILY TO ANY LOWER EXTREMIT Y JOINT. NOT MORE THAN 8 GRAMS DAILY TO ANY UPPER EXTREMIT Y JOINT. MAX 32GM/DAY OVER ALL JOINTS. (MEASURE DOSE WITH RULER ATTACHED INSIDE BOX) TOPICA L ACTIVE 04/27/2025 [id number] 5 CHRISTIALFMY 2023 300 [facility] FINASTERIDE 5MG TAB TAKE ONE TABLET BY MOUTH ONCE A DAY SWALLOW WHOLE, DO NOT CRUSH, SPLIT, OR CHEW. ORAL ACTIVE 09/18/2025 [id number] 5 RADHA PINK 2024 90 [facility] FINASTERIDE 5MG TAB TAKE ONE TABLET BY MOUTH ONCE A DAY SWALLOW WHOLE, DO NOT CRUSH, SPLIT, OR CHEW. ORAL DISCONT INUED 08/20/2024 [id number] 4 CHRISTI TATO 2023 90 [facility] FISH OIL 1000MG (500MG DHA/EPA) CAP,ORAL TAKE 2 CAPSULES BY MOUTH TWICE A DAY WITH MEALS ORAL ACTIVE RADHA PINK 2023 [facility] FLUTICASONE PROPIONATE 50MCG/SPRAY SOLN,NASAL, 16GM INSTILL 1 SPRAY IN NOSTRIL( S) ONCE A DAY FOR ALLERGIE S (MUST BE USED DIRECTED FOR MINIMUM OF 21 DAYS TO PROVIDE ADEQUATE BENEFITS ) NASAL ACTIVE 09/18/2025 [id number] 5 RADHA PINK 2024 3 [facility] FLUTICASONE PROPIONATE 50MCG/SPRAY SOLN,NASAL, 16GM INSTILL 1 SPRAY IN NOSTRIL( S) ONCE A DAY FOR ALLERGIE S (MUST BE USED DIRECTED FOR MINIMUM OF 21 DAYS TO PROVIDE ADEQUATE BENEFITS ) NASAL DISCONT INUED 08/20/2024 [id number] TATO BARRAZA 2023 3 [facility] FOLIC ACID 1MG TAB TAKE ONE TABLET BY MOUTH ONCE A DAY FOR FOLIC ACID SUPPLEME NTATION ORAL ACTIVE 06/08/2025 [id number] RADHA PINK 2023 100 [facility] FUROSEMIDE 40MG TAB TAKE ONE TABLET BY MOUTH EVERY MORNING FOR FLUID RETENTIO N (EDEMA) TAKE DAILY EXCEPT DIALYSIS DAYS ORAL DISCONT INUED (EDIT) 04/27/2025 [id number] RADHA PINK 2023 90 [facility] FUROSEMIDE 80MG TAB TAKE ONE TABLET BY MOUTH EVERY MORNING AND EVENING ORAL ACTIVE 01/05/2026 [id number] 5 RUBY ALEXANDER 2024 180 [place] [facility] FUROSEMIDE 80MG TAB TAKE ONE TABLET BY MOUTH TWICE A DAY FOR FLUID RETENTIO N (EDEMA) TAKE DAILY EXCEPT DIALYSIS DAYS ONLY ON NONDIALY SIS DAYS (FRIDAY, , FRIDAY, FRIDAY ORAL DISCONT INUED BY GLORIA R 04/27/2025 [id number] 4 TATO BARRAZA 2023 180 [facility] INSULIN REG HUMAN 100 U/ML INJ NOVOLIN R INJECT 15 UNITS UNDER THE SKIN THREE TIMES A DAY BEFORE MEALS FOR DIABETES ADMINIST ER 30 MINUTES BEFORE FOOD DIRECTED . DISCARD 30 DAYS AFTER OPENING. SUBCUT ANEOUS ACTIVE 09/18/2025 [id number] RADHA PINK 2024 5 [facility] INSULIN REG HUMAN 100 U/ML INJ NOVOLIN R INJECT 10 UNITS UNDER THE SKIN EVERY MORNING BEFORE A MEAL FOR DIABETES ADMINIST ER 30 MINUTES BEFORE FOOD DIRECTED . DISCARD 30 DAYS AFTER OPENING. PER SLIDING SCALE ADMINIST ER 30 MINUTES BEFORE FOOD DIRECTED . DISCARD 30 DAYS AFTER OPENING. PER SLIDING SCALE SUBCUT ANEOUS 04/25/2024 [id number] 4 RADHA PINK 2023 5 [facility] INSULIN,GLA RGINE,HUMAN 100 UNT/ML INJ INJECT 50 UNITS UNDER THE SKIN EVERY MORNING FOR DIABETES (AT SAME TIME EACH DAY) - (DISCARD ANY UNUSED PORTION 28 DAYS AFTER OPENING) ### SUBCUT ANEOUS ACTIVE 09/18/2025 [id number] 5 RADHA PINK W 2024 5 [facility] INSULIN,GLA RGINE,HUMAN 100 UNT/ML INJ INJECT 10 UNITS UNDER THE SKIN EVERY MORNING FOR DIABETES (AT SAME TIME EACH DAY) - (DISCARD ANY UNUSED PORTION 28 DAYS AFTER OPENING) SUBCUT ANEOUS DISCONT INUED (EDIT) 09/09/2025 [id number] 5 JOESPH RADHA Wheeler 2024 5 [facility] INSULIN,GLA RGINE,HUMAN 100 UNT/ML INJ INJECT 40 UNITS UNDER THE SKIN EVERY MORNING FOR DIABETES (AT SAME TIME EACH DAY) - (DISCARD ANY UNUSED PORTION 28 DAYS AFTER OPENING) SUBCUT ANEOUS DISCONT INUED (EDIT) 04/27/2025 [id number] 4 TATO BARRAZA 2023 5 [facility] INSULIN,GLA RGINE-YFGN 100UNIT/ML INJ INJECT 35 UNITS UNDER THE SKIN EVERY MORNING FOR DIABETES (AT SAME TIME EACH DAY) - (DISCARD ANY UNUSED PORTION 28 DAYS AFTER OPENING) SUBCUT ANEOUS 04/24/2024 [id number] TATO BARRAZA 2022 6 [facility] ISOSORBIDE MONONITRATE 120MG TAB,SA TAKE ONE TABLET BY MOUTH ONCE A DAY TAKE ON EMPTY STOMACH. SWALLOW WHOLE. DO NOT CRUSH OR CHEW. ORAL DISCONT INUED (EDIT) 09/25/2024 [id number] RAQUEL MARTINEZ 2023 90 [place] [facility] ISOSORBIDE MONONITRATE 30MG TAB,SA TAKE ONE TABLET BY MOUTH ONCE A DAY FOR CHEST PAIN TAKE ON EMPTY STOMACH. SWALLOW WHOLE. DO NOT CRUSH OR CHEW. ORAL SUSPEND ED 01/29/2026 [id number] 5 CHRISTIALF LAROSEMY [address] [place] [address] [facility] ISOSORBIDE MONONITRATE 30MG TAB,SA TAKE ONE TABLET BY MOUTH ONCE A DAY FOR CHEST PAIN TAKE ON EMPTY STOMACH. SWALLOW WHOLE. DO NOT CRUSH OR CHEW. ORAL DISCONT INUED 04/27/2025 [id number] 5 CHRISTIALFMY [address] [place] [address] [facility] LORATADINE 10MG TAB TAKE ONE TABLET BY MOUTH ONCE A DAY ON EMPTY STOMACH FOR ALLERGIE S ORAL ACTIVE 04/28/2025 [id number] 5 CHRISTITATO ARTHUR [address] [place] [address] [facility] LORATADINE 10MG TAB TAKE ONE TABLET BY MOUTH ONCE A DAY ON EMPTY STOMACH FOR ALLERGIE S ORAL DISCONT INUED 12/08/2024 [id number] CHRISTITATO [address] [place] [address] [facility] LORATADINE 10MG TAB TAKE ONE TABLET BY MOUTH ONCE A DAY ON EMPTY STOMACH FOR ALLERGIE S ORAL DISCONT INUED 07/25/2024 [id number] CHRISTITATO [address] [place] [address] [facility] LORATADINE 10MG TAB TAKE ONE TABLET BY MOUTH ONCE A DAY ON EMPTY STOMACH FOR ALLERGIE S ORAL DISCONT INUED 05/25/2024 [id number] [address] [place] [address] [facility] LORATADINE 10MG TAB TAKE ONE TABLET BY MOUTH ONCE A DAY ON EMPTY STOMACH FOR ALLERGIE S ORAL DISCONT INUED 02/06/2024 [id number] CHRISTITATO [address] [place] [address] [facility] MAGNESIUM OXIDE 400MG TAB TAKE ONE TABLET BY MOUTH ONCE A DAY FOR DIETARY MAGNESIU M SUPPLEME NTATION ORAL 04/07/2024 [id number] JENY GAMA 2022 120 [place] [facility] METOPROLOL TARTRATE 25MG TAB TAKE ONE TABLET BY MOUTH TWICE A DAY TAKE WITH OR IMMEDIAT JACKI MARLENYIN G FOOD. ORAL DISCONT INUED BY GLORIA R 11/13/2024 [id number] Sharon EL USSAIN 2023 180 [place] [facility] NIFEDIPINE (EQV-CC) 60MG TAB,SA TAKE ONE TABLET BY MOUTH ONCE A DAY FOR HIGH BLOOD PRESSURE PREFERAB LE TO TAKE ON EMPTY STOMACH. SWALLOW WHOLE; DO NOT CRUSH OR CHEW. AVOIDGRA PEFRUIT JUICE. ORAL 08/20/2024 [id number] [facility] 2023 90 [place] [facility] NITROGLYCER IN 0.4MG TAB,SUBLING UAL DISSOLVE ONE TABLET UNDER THE TONGUE ONE-TIME FOR CHEST PAIN NEEDED; IF NO IMPROVEM ENT AFTER FIRST DOSE CALL 02-21-. MAY TAKE 2 ADDITION AL DOSES, 5 MINUTES APART SUBLIN GUAL ACTIVE 04/20/2025 [id number] [facility] 2023 100 [place] [facility] OLANZAPINE 10MG TAB TAKE ONE-HALF TABLET BY MOUTH AT BEDTIME NEEDED FOR ANXIETY ORAL ACTIVE 04/27/2025 [id number] 4 [facility] 2023 90 [place] [facility] PANTOPRAZOL E NA 40MG TAB,EC TAKE ONE TABLET BY MOUTH EVERY MORNING BEFORE A MEAL FOR GASTROES OPHAGEAL REFLUX DISEASE TAKE 30 MINUTES BEFORE MEAL(S) ORAL ACTIVE 12/23/2025 [id number] [facility] 2024 90 [facility] PIRTOBRUTIN IB 50MG TAB TAKE ONE TABLET BY MOUTH ONCE A DAY ORAL ACTIVE 01/11/2026 [id number] 5 JOSE M WALTON 2024 30 [place] [facility] SEVELAMER CARBONATE 800MG TAB TAKE ONE TABLET BY MOUTH THREE TIMES A DAY WITH MEAL(S) TAKE WITH FOOD. ORAL ACTIVE 04/24/2025 [id number] 5 TREVER MCRAE 2023 90 [place] [facility] SODIUM ZIRCONIUM CYCLOSILICA TE 10GM/PKT PWDR,RENST- ORAL MIX AND DRINK 10GM/PKT BY MOUTH EVERY OTHER DAY FOR 90 DAYS FOR HIGH POTASSIU M DISSOLVE IN WATER ORAL DISCONT INUED BY PROVIDE R 06/30/2024 [id number] 4 Antonio JOHNSON 2023 30 [place] [facility] TAMSULOSIN HCL 0.4MG CAP TAKE TWO CAPSULES BY MOUTH EVERY EVENING APPROXIM ATELY 30 MINUTES AFTER THE SAME MEAL EACH DAY (FOR PROSTATE ) ORAL ACTIVE 03/20/2025 [id number] RADHA PINK 2023 180 [facility] TAMSULOSIN HCL 0.4MG CAP TAKE TWO CAPSULES BY MOUTH EVERY EVENING APPROXIM ATELY 30 MINUTES AFTER THE SAME MEAL EACH DAY (FOR PROSTATE ) ORAL DISCONT INUED 04/07/2024 [id number] JENY GAMA 2022 180 [facility] TORSEMIDE 100MG TAB TAKE ONE TABLET BY MOUTH DIRECTED ON NON-DIAL YSIS DAYS (FRIDAY, , FRIDAY, AND FRIDAY) ORAL HOLD 09/14/2025 [id number] 5 [facility]REVER MCRAE 2024 [facility] Allergies, Adverse Reactions, Alerts Combined list of allergies from Department of Defense and Veterans Affairs facilities. It does not include entries that were removed or entered in error. Substance Category Reaction Severity Reaction type Status Date Reported Comments Source ALLOPURINOL Propensity to adverse reactions to drug (finding) Eruption active 8 [facility] CONTRAST MEDIA Propensity to adverse reactions to drug (finding) Eruption active 3 [facility] FLOMAX Propensity to adverse reactions to drug (finding) Chill, Finding of vomiting, Diarrhea, Weakness present active 8 [facility] METFORMIN Propensity to adverse reactions to drug (finding) NAUSEA,VO MITING active 3 [facility] Immunizations Combined list of available immunizations from the Department of Defense and Veterans Affairs facilities. Immunization Series Date Given Administered By Site Reaction Lot Number CVX Code Drug Casino Slot Supervisor Status Comments Source PNEUMOCOCCAL POLYSACCHARID E PPV23 2020 33 complet ed [facility] ZOSTER RECOMBINANT 2 2020 187 complet ed [facility] ZOSTER RECOMBINANT 1 2020 187 complet ed [facility] PNEUMOCOCCAL CONJUGATE PCV 13 2020 133 complet ed [facility] TDAP 2020 115 complet ed [facility] COVID-19 (PFIZER), MRNA, LNP-S, PF, 30 MCG/0.3 ML DOSE 2 2020 208 complet ed [facility] COVID-19 (PFIZER), MRNA, LNP-S, PF, 30 MCG/0.3 ML DOSE 1 2020 208 complet ed [facility] COVID-19 (PFIZER), MRNA, LNP-S, PF, 30 MCG/0.3 ML DOSE 1 2020 208 complet ed HISTORICA L INFORMATI ON - FROM OTHER REGISTRY, [facility] PNEUMOCOCCAL CONJUGATE PCV 13 1 2015 133 complet ed HISTORICA L INFORMATI ON - FROM OTHER REGISTRY, [facility] INFLUENZA, UNSPECIFIED FORMULATION 2013 88 complet ed [facility] INFLUENZA, UNSPECIFIED FORMULATION 2011 88 complet ed [facility] TD(ADULT) UNSPECIFIED FORMULATION 2004 139 complet [facility] INFLUENZA (HISTORICAL) 2003 88 [facility] INFLUENZA (HISTORICAL) 2002 88 complet [facility] Results Combined list of recent [...] 10:52 AM Reporting Lab: [place] [facility] [address] [place] [address] Performin g Lab: [place] [facility] [address] [place] [address] [facility] TSH (MA-PB) THYROTROPIN [UNITS/VOLU ME] IN SERUM OR PLASMA 4.243 u[IU]/mL 0.47 - 5 12/01 Specimen Type: SERUM No comment entered. Ordering Provider: TATO BARRAZA Report Released Date/Time : Dec 09, 2023 10:52 AM Reporting Lab: [place] [facility] [address] [place] [address] Performin g Lab: [place] [facility] [address] [place] [address] [facility] URINE ALBUMIN PROFILE-ih (PB) ALBUMIN [MASS/VOLUM E] IN URINE 417.30 mg/L 12/01 Specimen Type: URINE No comment entered. Ordering Provider: TATO BARRAZA Report Released Date/Time : Dec 09, 2023 10:52 AM Reporting Lab: [place] [facility] [address] [place] [address] Performin g Lab: [place] [facility] [address] [place] [address] [facility] URINE ALBUMIN PROFILE-ih (PB) ALBUMIN/CRE ATININE [MASS RATIO] IN URINE 346.62 mg/g 0 - 30 12/01 H Specimen Type: URINE No comment entered. Ordering Provider: TATO BARRAZA Report Released Date/Time : Dec 09, 2023 10:52 AM Reporting Lab: [place] [facility] [address] [place] [address] Performin g Lab: [place] [facility] [address] [place] [address] [facility] URINE ALBUMIN PROFILE-ih (PB) CREATININE [MASS/VOLUM E] IN URINE 120.39 mg/dL 12/01 Specimen Type: URINE No comment entered. Ordering Provider: TATO BARRAZA Report Released Date/Time : Dec 09, 2023 10:52 AM Reporting Lab: [place] [facility] [address] [place] [address] Performin g Lab: [place] [facility] [address] [place] [address] [facility] CHOLESTERO L PANEL (PB) CHOLESTEROL [MASS/VOLUM E] IN SERUM OR PLASMA 84 mg/dL 0 - 200 12/01 Specimen Type: PLASMA No comment entered. Ordering Provider: TATO BARRAZA Report Released Date/Time : Dec 09, 2023 10:52 AM Reporting Lab: [place] [facility] [address] [place] [address] Performin g Lab: [place] [facility] [address] [place] [address] [facility] CHOLESTERO L PANEL (PB) TRIGLYCERID E [MASS/VOLUM E] IN SERUM OR PLASMA 103 mg/dL 0 - 150 12/01 Specimen Type: PLASMA No comment entered. Ordering Provider: TATO BARRAZA Report Released Date/Time : Dec 09, 2023 10:52 AM Reporting Lab: [place] [facility] [address] [place] [address] Performin g Lab: [place] [facility] [address] [place] [address] [facility] CHOLESTERO L PANEL (PB) CHOLESTEROL IN LDL [MASS/VOLUM E] IN SERUM OR PLASMA BY CALCULATION 27.9 mg/dL 12/01 Specimen Type: PLASMA No comment entered. Ordering Provider: TATO BARRAZA Report Released Date/Time : Dec 09, 2023 10:52 AM Reporting Lab: [place] [facility] [address] [place] [address] Performin g Lab: [place] [facility] [address] [place] [address] [facility] CHOLESTERO L PANEL (PB) CHOLESTEROL IN HDL [MASS/VOLUM E] IN SERUM OR PLASMA 35.5 mg/dL 40 12/01 L Specimen Type: PLASMA No comment entered. Ordering Provider: TATO BARRAZA Report Released Date/Time : Dec 09, 2023 10:52 AM Reporting Lab: [place] [facility] [address] [place] [address] Performin g Lab: [place] [facility] [address] [place] [address] [facility] CHOLESTERO L PANEL (PB) CHOLESTEROL IN HDL/CHOLEST ZULEYKA.TOTAL [MASS RATIO] IN SERUM OR PLASMA 42.3 25 12/01 Specimen Type: PLASMA No comment entered. Ordering Provider: TATO BARRAZA Report Released Date/Time : Dec 09, 2023 10:52 AM Reporting Lab: [place] [facility] [address] [place] [address] Performin g Lab: [place] [facility] [address] [place] [address] [facility] COMPREHENS ERNST METABOLIC PANEL CREATININE [MASS/VOLUM E] IN SERUM OR PLASMA 3.11 mg/dL 0.7 - 1.3 12/01 H Specimen Type: PLASMA No comment entered. Ordering Provider: TATO BARRAZA Report Released Date/Time : Dec 09, 2023 10:52 AM Reporting Lab: [place] [facility] [address] [place] [address] Performin g Lab: [place] [facility] [address] [place] [address] [facility] COMPREHENS ERNST METABOLIC PANEL UREA NITROGEN [MASS/VOLUM E] IN SERUM OR PLASMA 24 mg/dL 9 - 25 12/01 Specimen Type: PLASMA No comment entered. Ordering Provider: TATO BARRAZA Report Released Date/Time : Dec 09, 2023 10:52 AM Reporting Lab: [place] [facility] [address] [place] [address] Performin g Lab: [place] [facility] [address] [place] [address] [facility] COMPREHENS ERNST METABOLIC PANEL GLUCOSE [MASS/VOLUM E] IN SERUM OR PLASMA 212 mg/dL 72 - 99 12/01 H Specimen Type: PLASMA No comment entered. Ordering Provider: TATO BARRAZA Report Released Date/Time : Dec 09, 2023 10:52 AM Reporting Lab: [place] [facility] [address] [place] [address] Performin g Lab: [place] [facility] [address] [place] [address] [place] COMPREHENS ERNST METABOLIC PANEL SODIUM [MOLES/VOLU ME] IN SERUM OR PLASMA 137 meq/L 136 - 145 12/01 Specimen Type: PLASMA No comment entered. Ordering Provider: TATO BARRAZA Report Released Date/Time : Dec 09, 2023 10:52 AM Reporting Lab: [place] [facility] [address] [place] [address] Performin g Lab: [place] [facility] [address] [place] [address] [facility] COMPREHENS ERNST METABOLIC PANEL POTASSIUM [MOLES/VOLU ME] IN SERUM OR PLASMA 4.6 meq/L 3.5 - 5 12/01 Specimen Type: PLASMA No comment entered. Ordering Provider: TATO BARRAZA Report Released Date/Time : Dec 09, 2023 10:52 AM Reporting Lab: [place] [facility] [address] [place] [address] 8 Performin g Lab: [place] [facility] [address] [place] [address] 8 [facility] COMPREHENS ERNST METABOLIC PANEL CHLORIDE [MOLES/VOLU ME] IN SERUM OR PLASMA 100 meq/L 98 - 107 12/01 Specimen Type: PLASMA No comment entered. Ordering Provider: TATO BARRAZA Report Released Date/Time : Dec 09, 2023 10:52 AM Reporting Lab: [place] [facility] [address] [place] [address] 8 [facility]formin g Lab: [place] [facility] [address] [place] [address] 8 [facility] COMPREHENS ERNST METABOLIC PANEL CARBON DIOXIDE, TOTAL [MOLES/VOLU ME] IN SERUM OR PLASMA 27 meq/L 22 - 31 12/01 Specimen Type: PLASMA No comment entered. Ordering Provider: TATO BARRAZA Report Released Date/Time : Dec 09, 2023 10:52 AM Reporting Lab: [place] [facility] [address] [place] [address] 8 [facility]formin g Lab: [place] [facility] [address] [place] [address] 8 [facility] COMPREHENS ERNST METABOLIC PANEL CALCIUM [MASS/VOLUM E] IN SERUM OR PLASMA 8.9 mg/dL 8.4 - 10.4 12/01 Specimen Type: PLASMA No comment entered. Ordering Provider: TATO BARRAZA Report Released Date/Time : Dec 09, 2023 10:52 AM Reporting Lab: [place] [facility] [address] [place] [address] 8 Performin g Lab: [place] [facility] [address] [place] [address] 8 [facility] COMPREHENS ERNST METABOLIC PANEL PROTEIN [MASS/VOLUM E] IN SERUM OR PLASMA 6.1 g/dL 6 - 8.6 12/01 Specimen Type: PLASMA No comment entered. Ordering Provider: TATO BARRAZA Report Released Date/Time : Dec 09, 2023 10:52 AM Reporting Lab: [place] [facility] [address] [place] [address] 8 Performin g Lab: [place] [facility] [address] [place] [address] 8 [facility] COMPREHENS ERNST METABOLIC PANEL ALBUMIN [MASS/VOLUM E] IN SERUM OR PLASMA 4.1 g/dL 3.4 - 5 12/01 Specimen Type: PLASMA No comment entered. Ordering Provider: TATO BARRAZA Report Released Date/Time : Dec 09, 2023 10:52 AM Reporting Lab: [place] [facility] [address] [place] [address] 8 Performin g Lab: [place] [facility] [address] [place] [address] 8 [facility] COMPREHENS ERNST METABOLIC PANEL BILIRUBIN.T OTAL [MASS/VOLUM E] IN SERUM OR PLASMA 1.2 mg/dL 0.2 - 1.2 12/01 Specimen Type: PLASMA No comment entered. Ordering Provider: TATO BARRAZA Report Released Date/Time : Dec 09, 2023 10:52 AM Reporting Lab: [place] [facility] [address] [place] [address] 8 Performin g Lab: [place] [facility] [address] [place] [address] 8 [facility] COMPREHENS ERNST METABOLIC PANEL ALKALINE PHOSPHATASE [ENZYMATIC ACTIVITY/VO LUME] IN SERUM OR PLASMA 105 U/L 40 - 150 12/01 Specimen Type: PLASMA No comment entered. Ordering Provider: TATO BARRAZA Report Released Date/Time : Dec 09, 2023 10:52 AM Reporting Lab: [place] [facility] [address] [place] [address] 8 Performin g Lab: [place] [facility] [address] [place] [address] 8 [facility] COMPREHENS ERNST METABOLIC PANEL ASPARTATE AMINOTRANSF ERASE [ENZYMATIC ACTIVITY/VO LUME] IN SERUM OR PLASMA 10 U/L 5 - 34 12/01 Specimen Type: PLASMA No comment entered. Ordering Provider: TATO BARRAZA Report Released Date/Time : Dec 09, 2023 10:52 AM Reporting Lab: [place] [facility] [address] [place] [address] 8 Performin g Lab: [place] [facility] [address] [place] [address] 8 [facility] COMPREHENS ERNST METABOLIC PANEL ALANINE AMINOTRANSF ERASE [ENZYMATIC ACTIVITY/VO LUME] IN SERUM OR PLASMA <7U/L 8 - 40 12/01 L Specimen Type: PLASMA No comment entered. Ordering Provider: TATO BARRAZA Report Released Date/Time : Dec 09, 2023 10:52 AM Reporting Lab: [place] [facility] [address] [place] [address] 8 Performin g Lab: [place] [facility] [address] [place] [address] 8 [facility] COMPREHENS ERNST METABOLIC PANEL GLOMERULAR FILTRATION RATE/1.73 SQ M.PREDICTED [VOLUME RATE/AREA] IN SERUM, PLASMA OR BLOOD BY CREATININE- BASED FORMULA ([id number] 2020) 19 12/01 Specimen Type: PLASMA No comment entered. Ordering Provider: TATO BARRAZA Report Released Date/Time : Dec 09, 2023 10:52 AM Reporting Lab: [place] [facility] [address] [place] [address] 8 Performin g Lab: [place] [facility] [address] [place] [address] 8 [facility] CBC LEUKOCYTES [#/VOLUME] IN BLOOD BY AUTOMATED COUNT 59.9 10*3/uL 3.6 - 11.2 12/01 H Specimen Type: BLOOD No comment entered. Ordering Provider: TATO BRARAZA Report Released Date/Time : Dec 09, 2023 10:52 AM Reporting Lab: [place] [facility] [address] [place] [address] 8 Performin g Lab: [place] [facility] [address] [place] [address] 8 [facility] CBC ERYTHROCYTE S [#/VOLUME] IN BLOOD BY AUTOMATED COUNT 3.15 10*6/uL 4.10 - 5.70 12/01 L Specimen Type: BLOOD No comment entered. Ordering Provider: TATO BARRAZA Report Released Date/Time : Dec 09, 2023 10:52 AM Reporting Lab: [place] [facility] [address] [place] [address] 8 Performin g Lab: [place] [facility] [address] [place] [address] 8 [facility] CBC HEMOGLOBIN [MASS/VOLUM E] IN BLOOD 9.6 g/dL 13.1 - 16.8 12/01 L Specimen Type: BLOOD No comment entered. Ordering Provider: TATO BARRAZA Report Released Date/Time : Dec 09, 2023 10:52 AM Reporting Lab: [place] [facility] [address] [place] [address] 8 Performin g Lab: [place] [facility] [address] [place] [address] 8 [facility] CBC HEMATOCRIT [VOLUME FRACTION] OF BLOOD 31.9 38.2 - 48.4 12/01 L Specimen Type: BLOOD No comment entered. Ordering Provider: TATO BARRAZA Report Released Date/Time : Dec 09, 2023 10:52 AM Reporting Lab: [place] [facility] [address] [place] [address] 8 Performin g Lab: [place] [facility] [address] [place] [address] 8 [facility] CBC MCV [ENTITIC VOLUME] BY AUTOMATED COUNT 101.3 fL 80.0 - 100.0 12/01 H Specimen Type: BLOOD No comment entered. Ordering Provider: TATO BARRAZA Report Released Date/Time : Dec 09, 2023 10:52 AM Reporting Lab: [place] [facility] [address] [place] [address] 8 Performin g Lab: [place] [facility] [address] [place] [address] 8 [facility] CBC MCH [ENTITIC MASS] BY AUTOMATED COUNT 30.5 pg 27.0 - 34.0 12/01 Specimen Type: BLOOD No comment entered. Ordering Provider: TATO BARRAZA Report Released Date/Time : Dec 09, 2023 10:52 AM Reporting Lab: [place] [facility] [address] [place] [address] 8 Performin g Lab: [place] [facility] [address] [place] [address] 8 [facility] CBC MCHC [MASS/VOLUM E] BY AUTOMATED COUNT 30.1 g/dL 33.0 - 36.0 12/01 L Specimen Type: BLOOD No comment entered. Ordering Provider: TATO BARRAZA Report Released Date/Time : Dec 09, 2023 10:52 AM Reporting Lab: [place] [facility] [address] [place] [address] 8 Performin g Lab: [place] [facility] [address] [place] [address] 8 [facility] CBC PLATELETS [#/VOLUME] IN BLOOD BY AUTOMATED COUNT 100 10*3/uL 150 - 400 12/01 L Specimen Type: BLOOD No comment entered. Ordering Provider: TATO BARRAZA Report Released Date/Time : Dec 09, 2023 10:52 AM Reporting Lab: [place] [facility] [address] [place] [address] 8 Performin g Lab: [place] [facility] [address] [place] [address] 8 [facility] CBC PLATELET MEAN VOLUME [ENTITIC VOLUME] IN BLOOD BY AUTOMATED COUNT 9.2 fL 7.5 - 11.2 12/01 Specimen Type: BLOOD No comment entered. Ordering Provider: TATO BARRAZA Report Released Date/Time : Dec 09, 2023 10:52 AM Reporting Lab: [place] [facility] [address] [place] [address] 8 Performin g Lab: [place] [facility] [address] [place] [address] 8 [facility] CBC SEGMENTED NEUTROPHILS /100 LEUKOCYTES IN BLOOD BY MANUAL COUNT 5 12/01 Specimen Type: BLOOD No comment entered. Ordering Provider: TATO BARRAZA Report Released Date/Time : Dec 09, 2023 10:52 AM Reporting Lab: [place] [facility] [address] [place] [address] 8 Performin g Lab: [place] [facility] [address] [place] [address] 8 [facility] CBC MONOCYTES/1 00 LEUKOCYTES IN BLOOD BY AUTOMATED COUNT 1 12/01 Specimen Type: BLOOD No comment entered. Ordering Provider: TATO BARRAZA Report Released Date/Time : Dec 09, 2023 10:52 AM Reporting Lab: [place] [facility] [address] [place] [address] 8 Performin g Lab: [place] [facility] [address] [place] [address] 8 [facility] CBC PLATELET ADEQUACY [PRESENCE] IN BLOOD BY LIGHT MICROSCOPY DECREASED 12/01 Specimen Type: BLOOD No comment entered. Ordering Provider: TATO BARRAZA Report Released Date/Time : Dec 09, 2023 10:52 AM Reporting Lab: [place] [facility] [address] [place] [address] 8 Performin g Lab: [place] [facility] [address] [place] [address] 8 [facility] CBC ANISOCYTOSI S [PRESENCE] IN BLOOD BY LIGHT MICROSCOPY 1+ 12/01 Specimen Type: BLOOD No comment entered. Ordering Provider: TATO BARRAZA Report Released Date/Time : Dec 09, 2023 10:52 AM Reporting Lab: [place] [facility] [address] [place] [address] 8 Performin g Lab: [place] [facility] [address] [place] [address] 8 [facility] CBC SMUDGE CELLS [PRESENCE] IN BLOOD BY LIGHT MICROSCOPY 1+ 12/01 Specimen Type: BLOOD No comment entered. Ordering Provider: TATO BARRAZA Report Released Date/Time : Dec 09, 2023 10:52 AM Reporting Lab: [place] [facility] [address] [place] [address] 8 Performin g Lab: [place] [facility] [address] [place] [address] 8 [facility] CBC ERYTHROCYTE DISTRIBUTIO N WIDTH [RATIO] BY AUTOMATED COUNT 18.4 11.8 - 15.1 12/01 H Specimen Type: BLOOD No comment entered. Ordering Provider: TATO BARRAZA Report Released Date/Time : Dec 09, 2023 10:52 AM Reporting Lab: [place] [facility] [address] [place] [address] 8 Performin g Lab: [place] [facility] [address] [place] [address] 8 [facility] CBC LYMPHOCYTES /100 LEUKOCYTES IN BLOOD BY MANUAL COUNT 70 12/01 Specimen Type: BLOOD No comment entered. Ordering Provider: TATO BARRAZA Report Released Date/Time : Dec 09, 2023 10:52 AM Reporting Lab: [place] [facility] [address] [place] [address] 8 Performin g Lab: [place] [facility] [address] [place] [address] 8 [facility] CBC LYMPHOCYTES /100 LEUKOCYTES IN BLOOD BY AUTOMATED COUNT 94.2 12/01 Specimen Type: BLOOD No comment entered. Ordering Provider: TATO BARRAZA Report Released Date/Time : Dec 09, 2023 10:52 AM Reporting Lab: [place] [facility] [address] [place] [address] 8 Performin g Lab: [place] [facility] [address] [place] [address] 8 [facility] CBC MONOCYTES/1 00 LEUKOCYTES IN BLOOD BY AUTOMATED COUNT 1.6 12/01 Specimen Type: BLOOD No comment entered. Ordering Provider: TATO BARRAZA Report Released Date/Time : Dec 09, 2023 10:52 AM Reporting Lab: [place] [facility] [address] [place] [address] 8 Performin g Lab: [place] [facility] [address] [place] [address] 8 [facility] CBC NEUTROPHILS /100 LEUKOCYTES IN BLOOD BY AUTOMATED COUNT 3.5 12/01 Specimen Type: BLOOD No comment entered. Ordering Provider: TATO BARRAZA Report Released Date/Time : Dec 09, 2023 10:52 AM Reporting Lab: [place] [facility] [address] [place] [address] 8 Performin g Lab: [place] [facility] [address] [place] [address] 8 [facility] CBC EOSINOPHILS /100 LEUKOCYTES IN BLOOD BY AUTOMATED COUNT 0.5 12/01 Specimen Type: BLOOD No comment entered. Ordering Provider: TATO BARRAZA Report Released Date/Time : Dec 09, 2023 10:52 AM Reporting Lab: [place] [facility] [address] [place] [address] 8 Performin g Lab: [place] [facility] [address] [place] [address] 8 [facility] CBC BASOPHILS/1 00 LEUKOCYTES IN BLOOD BY AUTOMATED COUNT 0.1 12/01 Specimen Type: BLOOD No comment entered. Ordering Provider: TATO BARRAZA Report Released Date/Time : Dec 09, 2023 10:52 AM Reporting Lab: [place] [facility] [address] [place] [address] 8 Performin g Lab: [place] [facility] [address] [place] [address] 8 [facility] CBC LYMPHOCYTES [#/VOLUME] IN BLOOD BY AUTOMATED COUNT 56.46 10*3/uL 0.77 - 4.50 12/01 H Specimen Type: BLOOD No comment entered. Ordering Provider: TATO BARRAZA Report Released Date/Time : Dec 09, 2023 10:52 AM Reporting Lab: [place] [facility] [address] [place] [address] 8 Performin g Lab: [place] [facility] [address] [place] [address] 8 [facility] CBC MONOCYTES [#/VOLUME] IN BLOOD BY AUTOMATED COUNT 0.97 10*3/uL 0.19 - 0.8 12/01 H Specimen Type: BLOOD No comment entered. Ordering Provider: TATO BARRAZA Report Released Date/Time : Dec 09, 2023 10:52 AM Reporting Lab: [place] [facility] [address] [place] [address] 8 Performin g Lab: [place] [facility] [address] [place] [address] 8 [facility] CBC NEUTROPHILS [#/VOLUME] IN BLOOD BY AUTOMATED COUNT 2.12 10*3/uL 2.10 - 8.00 12/01 Specimen Type: BLOOD No comment entered. Ordering Provider: TATO BARRAZA Report Released Date/Time : Dec 09, 2023 10:52 AM Reporting Lab: [place] [facility] [address] [place] [address] 8 Performin g Lab: [place] [facility] [address] [place] [address] 8 [facility] CBC EOSINOPHILS [#/VOLUME] IN BLOOD BY AUTOMATED COUNT 0.27 10*3/uL 0.00 - 0.60 12/01 Specimen Type: BLOOD No comment entered. Ordering Provider: TATO BARRAZA Report Released Date/Time : Dec 09, 2023 10:52 AM Reporting Lab: [place] [facility] [address] [place] [address] 8 Performin g Lab: [place] [facility] [address] [place] [address] 8 [facility] CBC BASOPHILS [#/VOLUME] IN BLOOD BY AUTOMATED COUNT 0.04 10*3/uL 0.00 - 0.20 12/01 Specimen Type: BLOOD No comment entered. Ordering Provider: TATO BARRAZA Report Released Date/Time : Dec 09, 2023 10:52 AM Reporting Lab: [place] [facility] [address] [place] [address] 8 Performin g Lab: [place] [facility] [address] [place] [address] 8 [facility] CBC VARIANT LYMPHOCYTES /100 LEUKOCYTES IN BLOOD BY MANUAL COUNT 24 12/01 Specimen Type: BLOOD No comment entered. Ordering Provider: TATO BARRAZA Report Released Date/Time : Dec 09, 2023 10:52 AM Reporting Lab: [place] [facility] [address] [place] [address] 8 [facility]formin g Lab: [place] [facility] [address] [place] [address] 8 [facility] CBC PLATELETS RETICULATED /100 PLATELETS IN BLOOD BY AUTOMATED COUNT 1.8 1.0 - 7.0 12/01 Specimen Type: BLOOD No comment entered. Ordering Provider: TATO BARRAZA Report Released Date/Time : Dec 09, 2023 10:52 AM Reporting Lab: [place] [facility] [address] [place] [address] 8 Performin g Lab: [place] [facility] [address] [place] [address] 8 [facility] CBC IMMATURE GRANULOCYTE S/100 LEUKOCYTES IN BLOOD BY AUTOMATED COUNT 0.1 12/01 Specimen Type: BLOOD No comment entered. Ordering Provider: TATO BARRAZA Report Released Date/Time : Dec 09, 2023 10:52 AM Reporting Lab: [place] [facility] [address] [place] [address] 8 Performin g Lab: [place] [facility] [address] [place] [address] 8 [facility] CBC IMMATURE GRANULOCYTE S [#/VOLUME] IN BLOOD BY AUTOMATED COUNT 0.07 10*3/uL 0.00 - 0.05 12/01 H Specimen Type: BLOOD No comment entered. Ordering Provider: TATO BARRAZA Report Released Date/Time : Dec 09, 2023 10:52 AM Reporting Lab: [place] [facility] [address] [place] [address] 8 Performin g Lab: [place] [facility] [address] [place] [address] 8 [facility] CBC MANUAL DIFFERENTIA L COMMENT [INTERPRETA TION] IN BLOOD NARRATIVE NO 12/01 Specimen Type: BLOOD No comment entered. Ordering Provider: TATO BARRAZA Report Released Date/Time : Dec 09, 2023 10:52 AM Reporting Lab: [place] [facility] [address] [place] [address] 8 Performin g Lab: [place] [facility] [address] [place] [address] 8 [facility] CBC MANUAL DIFFERENTIA L PERFORMED [PRESENCE] IN BLOOD 0.00 10*3/uL 0.00 12/01 Specimen Type: BLOOD No comment entered. Ordering Provider: TATO BARRAZA Report Released Date/Time : Dec 09, 2023 10:52 AM Reporting Lab: [place] [facility] [address] [place] [address] 8 Performin g Lab: [place] [facility] [address] [place] [address] 8 [facility] CBC MONOCYTES [#/VOLUME] IN BLOOD BY MANUAL COUNT 0.60 10*3/uL 0.19 - 0.8 12/01 Specimen Type: BLOOD No comment entered. Ordering Provider: TATO BARRAZA Report Released Date/Time : Dec 09, 2023 10:52 AM Reporting Lab: [place] [facility] [address] [place] [address] 8 [facility]formin g Lab: [place] [facility] [address] [place] [address] 8 [facility] CBC LYMPHOCYTES [#/VOLUME] IN BLOOD BY MANUAL COUNT 41.93 10*3/uL 0.77 - 4.50 12/01 H Specimen Type: BLOOD No comment entered. Ordering Provider: TATO BARRAZA Report Released Date/Time : Dec 09, 2023 10:52 AM Reporting Lab: [place] [facility] [address] [place] [address] 8 Performin g Lab: [place] [facility] [address] [place] [address] 8 [facility] CBC NEUTROPHILS [#/VOLUME] IN BLOOD BY MANUAL COUNT 3.00 10*3/uL 2.10 - 8.00 12/01 Specimen Type: BLOOD No comment entered. Ordering Provider: TATO BARRAZA Report Released Date/Time : Dec 09, 2023 10:52 AM Reporting Lab: [place] [facility] [address] [place] [address] 8 [facility]formin g Lab: [place] [facility] [address] [place] [address] 8 [facility] FERRITIN FERRITIN [MASS/VOLUM E] IN SERUM OR PLASMA 228 ng/mL 22 - 275 09/13 Specimen Type: SERUM No comment entered. Ordering Provider: RADHA PINK Report Released Date/Time : Jun 07, 2024 01:24 PM Reporting Lab: [place] [facility] [address] [place] [address] 8 [facility]formin g Lab: [place] [facility] [address] [place] [address] 8 [facility] FOLATE (PB) FOLATE [MASS/VOLUM E] IN SERUM OR PLASMA >20.0ng/m L 7 - 20 09/13 H Specimen Type: SERUM No comment entered. Ordering Provider: RADHA PINK Report Released Date/Time : Jun 07, 2024 01:24 PM Reporting Lab: [place] [facility] [address] [place] [address] 8 [facility] g Lab: [place] [facility] [address] [place] [address] 8 [facility] IRON/TIBC PROFILE IRON BINDING CAPACITY [MASS/VOLUM E] IN SERUM OR PLASMA 218 ug/dL 09/13 Specimen Type: PLASMA No comment entered. Ordering Provider: RADHA PINK Report Released Date/Time : Jun 07, 2024 01:24 PM Reporting Lab: [place] [facility] [address] [place] [address] Performin g Lab: [place] [facility] [address] [place] [address] [facility] IRON/TIBC PROFILE TRANSFERRIN [MASS/VOLUM E] IN SERUM OR PLASMA 174 mg/dL 163 - 344 09/13 Specimen Type: PLASMA No comment entered. Ordering Provider: RADHA PINK Report Released Date/Time : Jun 07, 2024 01:24 PM Reporting Lab: [place] [facility] [address] [place] [address] Performin g Lab: [place] [facility] [address] [place] [address] [facility] IRON/TIBC PROFILE IRON SATURATION [MASS FRACTION] IN SERUM OR PLASMA 33 20 - 50 09/13 Specimen Type: PLASMA No comment entered. Ordering Provider: RADHA PINK Report Released Date/Time : Jun 07, 2024 01:24 PM Reporting Lab: [place] [facility] [address] [place] [address] Performin g Lab: [place] [facility] [address] [place] [address] [facility] IRON/TIBC PROFILE IRON [MASS/VOLUM E] IN SERUM OR PLASMA 71 ug/dL 65 - 175 09/13 Specimen Type: PLASMA No comment entered. Ordering Provider: RADHA PINK Report Released Date/Time : Jun 07, 2024 01:24 PM Reporting Lab: [place] [facility] [address] [place] [address] Performin g Lab[place] [facility] [address] [place] [address] [facility] B12 COBALAMIN (VITAMIN B12) [MASS/VOLUM E] IN SERUM OR PLASMA 394 pg/mL 213 - 816 09/13 Specimen Type: SERUM No comment entered. Ordering Provider: RADHA PINK Report Released Date/Time : Jun 07, 2024 01:24 PM Reporting Lab: [place] [facility] [address] [place] [address] Performin g Lab: [place] [facility] [address] [place] [address] [facility] [place] [facility] Vital Signs Combined list of inpatient and outpatient Vital Signs from Department of Defense and [employer] Affairs, ranging from 12 months to all on record, depending upon the facility. Vital Sign Value Date Comments Source SYSTOLIC BLOOD PRESSURE 101 12/22/2024 10:59:00 [facility] [place] [facility] DIASTOLIC BLOOD PRESSURE 46 12/22/2024 10:59:00 [facility] PULSE OXIMETRY 94 % 12/22/2024 10:59:00 [facility] [place] [facility] WEIGHT 230.5 12/22/2024 10:59:00 [facility] BMI 32 kg/m2 12/22/2024 10:59:00 [facility] PAIN 0 12/22/2024 10:59:00 [facility] PULSE 74 12/22/2024 10:59:00 [facility] RESPIRATION 18 12/22/2024 10:59:00 [facility] SYSTOLIC BLOOD PRESSURE 119 08/25/2024 11:23:00 [place] [facility] DIASTOLIC BLOOD PRESSURE 66 08/25/2024 11:23:[place] [facility] PULSE OXIMETRY 93 08/25/2024 11:23:00 [facility] WEIGHT 226.9 08/25/2024 11:23:[place] [facility] BMI 32 kg/m2 08/25/2024 11:23:[place] [facility] HEIGHT 71.0 08/25/2024 11:23:[place] [facility] PULSE 84 08/25/2024 11:23:[place] [facility] RESPIRATION 18 08/25/2024 11:23:[place] [facility] SYSTOLIC BLOOD PRESSURE 129 04/26/2024 15:00:00 [place] [facility] DIASTOLIC BLOOD PRESSURE 65 04/26/2024 15:00:00 [place] [facility] PULSE OXIMETRY 95 04/26/2024 15:00:00 [place] [facility] WEIGHT 231.4 04/26/2024 [facility] 32 kg/m2 04/26/[facility]24 [facility] PAIN 0 04/26/2024 15:00:00 [facility] TEMPERATURE 97.8 04/26/2024 15:00[facility] PULSE 68 04/26/2024 [facility] RESPIRATION 18 04/26/2024 15:00:00 [facility] Encounters Combined list of: 1) Encounters from Department of Veterans Affairs facilities going backup to the last 18 months, not all [place] inpatient encounters are included; 2) Encounters from the Department of Defense facilities going backup to 280 months. Location Location Details Encounter Type Encounter Number Reason For Visit Attending Provider ADM Date DC Date Status Disposition Source [place] [facility] Outpatient Encounter [id number] TERESA MANRIQUE 08/20 [place] [facility] [place] [facility] Outpatient Encounter [id number] 09/07 [place] [facility] [place] [facility] Outpatient Encounter [id number] 10/05 [place] [facility] OFF[facility] O/P EST MOD 30 MIN [id number] Diagnos is: ICD-10- CM R10.9 Unspeci fied abdomin al pain Walter BARRAZA 10/07 [facility] HC PRO PHONE CALL 5-10 MIN [id number] Diagnos is: ICD-10- CM R93.89 Abnorma l finding s on dx imaging of oth body structu res ANGELLA GUSTAFSON 10/08 [facility] Outpatient Encounter [id number] 10/08 [facility] MTMS BY PHARM ADDL 15 MIN [id number] Diagnos is: ICD-10- CM 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 diabete s mellitu s with unspeci fied complic ations JOESPHNupur ARAUZ W 10/09 [facility] OFF/OP EST OCTOBER X REQ PHY/QHP [id number] Diagnos is: ICD-10- CM 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 ALFRED DANIELSN MEGHAN Manuelito 10/09 [facility] Outpatient Encounter [id number] GINA SANTOS 10/09 [facility] HC PRO PHONE CALL 5-10 MIN [id number] [id number] Diagnos is: ICD-10- CM 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 ANGELLA Palm 10/16 [facility] Outpatient Encounter [id number] 10/21 [facility] Encounter [id number] [id number] 10/21 [facility] Outpatient Encounter [id number] [id number] 1 11/05 [facility] [place] [facility] Outpatient Encounter [id number] [id number] 11/11 [place] [facility] Outpatient Encounter [id number] [id number] 11/12 [facility] Outpatient Encounter [id number] [id number] 11/19 [facility] [place] [facility] Outpatient Encounter [id number] PRAVEENA BREWER 11/23 [place] [facility] Outpatient Encounter [id number] [id number] 11/25 [facility] Outpatient Encounter [id number] [id number] 11/26 [facility] Outpatient Encounter [id number] 12/04 [facility] Outpatient Encounter [id number] [id number] 12/08 [facility] OFFICE O/P EST LOW 20 MIN [id number] [id number] Diagnos is: ICD-10- CM 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 Walter BARRAZA 12/08 [facility] FUNDUS PHOTOGRAPH Y W/I&R [id number] [id number] Diagnos is: ICD-10- CM Z13.5 Encount er for screeni ng for eye and ear disorde rs MAGDALENO MENDOZA L 12/08 [facility] MTMS BY PHARM ADDL 15 MIN [id number] Diagnos is: ICD-10- CM 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 diabete s mellitu s with unspeci fied complic ations Nupur PINK W 12/08 [facility] [place] [facility] IMG RTA DETC/MNTR DS PHY/QHP [id number] [id number] Diagnos is: ICD-10- CM Z13.9 Encount er for screeni ng, unspeci fied MIGUEL RICO LA S 12/08 [place] [facility] FEE [id number] Diagnos is: ICD-10- CM H90.3 Sensori neural hearing loss, MILAD Saldivar A 12/14 [facility] HEARING AID REPAIR/MOD IFYING [id number] [id number] Diagnos is: ICD-10- CM H90.3 Sensori neural hearing loss, MILAD SaldivarNDRA A 12/14 [facility] Outpatient Encounter [id number] [id number] 12/21 [facility] Outpatient Encounter [id number] 12/21 [facility] Outpatient Encounter [id number] [id number] 12/21 [facility] Outpatient Encounter [id number] [id number] JASON MUNSON A 12/22 [place] [facility] Outpatient Encounter [id number] [id number] 12/22 [facility] Outpatient Encounter [id number] [id number] 01/07 [facility] Outpatient Encounter [id number] [id number] 01/07 [facility] Outpatient Encounter [id number] [id number] 01/07 [facility] FAC[facility] FEE [id number] [id number] Diagnos is: ICD-10- CM Z46.1 Encount er for fitting and adjustm ent of hearing aid MILAD CHOUDHURY A 01/13 [facility] [place] [facility] HEARING AID CHECK BOTH EARS [id number] [id number] Diagnos is: ICD-10- CM Z46.1 Encount er for fitting and adjustm ent of hearing aid MILAD CHOUDHURY A 01/13 [place] [facility] HC PRO PHONE CALL 5-10 MIN [id number] Diagnos is: ICD-10- CM R93.89 Abnorma l finding s on dx imaging of oth body structu res ANGELLA GUSTAFSON 01/18 [facility] Outpatient Encounter [id number] [id number] LOUISE LOVING T 01/19 [facility] Outpatient Encounter [id number] 02/05 [facility] Outpatient Encounter [id number] [id number] 02/08 [facility] Outpatient Encounter [id number] [id number] 02/16 [facility] [place] [facility] Outpatient Encounter [id number] [id number] 02/16 [place] [facility] [place] [facility] Outpatient Encounter [id number] [id number] 02/17 [place] [facility] Outpatient Encounter [id number] [id number] 02/23 [facility] Outpatient Encounter [id number] [id number] 02/24 [facility] [place] [facility] Outpatient Encounter [id number] [id number] 02/24 [place] [facility] Outpatient Encounter [id number] [id number] 03/04 [facility] Outpatient Encounter [id number] [id number] 03/17 [facility] [place] [facility] Outpatient Encounter [id number] [id number] 03/19 [place] [facility] MTMS BY PHARM ADDL 15 MIN [id number] Diagnos is: ICD-10- CM E78.5 Hyperli pidemia , unspeci fied Nupur PINK W 03/19 [facility] Outpatient Encounter [id number] [id number] 03/23 [facility] Outpatient Encounter [id number] [id number] TREVER LIRIANO N 03/28 [facility] Outpatient Encounter [id number] [id number] 03/31 [facility] N [place] [facility] Outpatient Encounter [id number] [id number] 03/31 [place] [facility] MARK [facility] Outpatient Encounter [id number] [id number] GLORIA CONSTANTINO 04/06 [place] AN[place] [facility] [place] [facility] Outpatient Encounter [id number] [id number] 04/08 [place] [facility] Outpatient Encounter [id number] [id number] 04/08 [facility] Outpatient Encounter [id number] [id number] 04/08 [facility] [place] [facility] Outpatient Encounter [id number] 04/12 [place] [facility] [place] [facility] Outpatient Encounter [id number] [id number] 04/19 [place] [facility] Outpatient Encounter [id number] [id number] 04/23 [facility] MTMS BY PHARM ADDL 15 MIN [id number] Diagnos is: ICD-10- CM E78.5 Hyperli pidemia , unspeci fied Nupur PINK W 04/26 [facility] OFFICE O/P EST MOD 30 MIN [id number] Diagnos is: ICD-10- CM I50.9 Heart failure , unspeci fied Walter BARRAZA 04/26 [facility] [place] [facility] Outpatient Encounter [id number] [id number] 05/26 [place] [facility] Outpatient Encounter [id number] [id number] 06/04 [facility] MTMS BY PHARM ADDL 15 MIN [id number] Diagnos is: ICD-10- CM 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 diabete s mellitu s with unspeci fied complic ations Nupur PINK DAVONTE W 06/07 [facility] Outpatient Encounter [id number] [id number] 06/07 [facility] N [facility] Outpatient Encounter [id number] [id number] 06/08 [facility] N [facility] Outpatient Encounter [id number] [id number] BARRETT RUSH L 07/05 [facility] N [facility] Outpatient Encounter [id number] [id number] 07/07 [facility] PH1 ASSMT&MGMT NQHP 5-10 [id number] Diagnos is: ICD-10- CM R09.81 Nasal congest ion ANGELLA GUSTAFSON R 07/13 [facility] [place] [facility] Outpatient Encounter [id number] [id number] 08/11 [place] [facility] Outpatient Encounter [id number] [id number] 08/12 [facility] [place] [facility] Outpatient Encounter [id number] [id number] Beverly CASTRO 08/16 [place] [facility] OFFICE O/P EST MOD 30 MIN [id number] Diagnos is: ICD-10- CM 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 diabete s mellitu s with unspeci fied complic ations Walter BARRAZA 08/25 [facility] Outpatient Encounter [id number] [id number] 08/25 [facility] N [facility] Outpatient Encounter [id number] [id number] 09/08 [facility] Outpatient Encounter [id number] [id number] 09/08 [facility] Outpatient Encounter [id number] [id number] 09/13 [facility] Outpatient Encounter [id number] [id number] 09/16 [facility] MTMS BY PHARM ADDL 15 MIN [id number] Diagnos is: ICD-10- CM 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 diabete s mellitu s with unspeci fied complic atNupur Thurston W 09/17 [facility] Outpatient Encounter [id number] [id number] 09/22 [facility] Outpatient Encounter [id number] [id number] 09/28 [facility] Outpatient Encounter [id number] 10/06 [facility] Outpatient Encounter [id number] 10/13 [facility] Outpatient Encounter [id number] [id number] 10/22 [facility] Outpatient Encounter [id number] [id number] 10/25 [facility] Outpatient Encounter [id number] [id number] 10/26 [facility] TE[facility] FACILITY FEE [id number] Diagnos is: ICD-10- CM Z46.1 Encount er for fitting and adjustm ent of hearing aid MILAD CHOUDHURY 10/27 [facility] HEARING AID REPAIR/MOD IFYING [id number] [id number] Diagnos is: ICD-10- CM Z46.1 Encount er for fitting and adjustm ent of hearing aid MILAD CHOUDHURY 10/27 [facility] Outpatient Encounter [id number] [id number] 1 11/04 [facility] Encounter [id number] [id number] 2 11/12 [facility] Outpatient Encounter [id number] [id number] 1 11/23 [facility] Outpatient Encounter [id number] [id number] 12/04 [facility] Outpatient Encounter [id number] [id number] LUISITO HARDEN 12/06 [facility] Outpatient Encounter [id number] [id number] GLORIA CONSTANTINO 12/06 [place] Outpatient Encounter [id number] [id number] 12/08 [facility] Outpatient Encounter [id number] [id number] 2 12/11 [facility] Outpatient Encounter [id number] [id number] 12/11 [place] [facility] [place] [facility] Outpatient Encounter [id number] [id number] 12/15 [place] [facility] Outpatient Encounter [id number] [id number] BARRE[place] RUSH RIL L 12/20 [facility] Outpatient Encounter [id number] [id number] 12/22 [facility] OFFICE O/P EST MOD 30 MIN [id number] [id number] Diagnos is: ICD-10- CM 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 diabete s mellitu s with unspeci fied complic atWalter Sarmiento 12/22 [facility] Outpatient Encounter [id number] [id number] TANI ARROYO 12/27 [facility] Outpatient Encounter [id number] [id number] MARY HARRIS 12/28 [facility] Outpatient Encounter [id number] [id number] BARRETT RUSH RIL L 12/29 [facility] N [facility] Outpatient Encounter [id number] [id number] ADRIAP RIL L 12/31 [facility] [place] [facility] Outpatient Encounter [id number] [id number] 01/03 [place] [facility] [place] [facility] Outpatient Encounter [id number] [id number] 01/03 [place] [facility] [place] [facility] Outpatient Encounter [id number] [id number] 01/03 [place] [facility] Outpatient Encounter [id number] [id number] 01/04 [facility] Outpatient Encounter [id number] [id number] 01/07 [facility] [place] [facility] MTMS BY PHARM VINYL FLOORING INSTALLER 15 MIN [id number] [id number] Diagnos is: ICD-10- CM 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 Encounter [id number] [id number] LUISITO HARDEN 01/11 [facility] Outpatient Encounter [id number] [id number] BARRETT RUSH 01/14 [facility] Outpatient Encounter [id number] [id number] 01/17 [facility] [place] [facility] Outpatient Encounter [id number] [id number] 01/21 [place] [facility] [place] [facility] Outpatient Encounter [id number] [id number] 01/24 [place] [facility] [place] [facility] Outpatient Encounter [id number] [id number] 01/27 [place] [facility] Social History Combined list of available smoking, tobacco, and other social history from Department of Defense and Veterans Affairs facilities. Social History Type Response Date Comment Sourc e Tobacco smoking status NHIS VA-TOBACCO USE FORMER CIGARETTES 08/25/2024 [facility] History of tobacco use VA-TOBACCO NEVER USED OTHER TYPE 08/25/2024 [place] [facility] History of tobacco use VA-TOBACCO FORMER USER 06/13/2023 [facility] [facility] History of tobacco use VA-TOBACCO FORMER USER 05/22/2022 [facility] History of tobacco use VA-TOBACCO NEVER USED 05/24/2021 [facility] History of tobacco use VA-TOBACCO FORMER USER 02/07/2020 [facility] [facility] History of tobacco use VA-TOBACCO QUIT 1 5 YRS OR MORE 08/04/2018 [facility] History of tobacco use QUIT TOBACCO >7 Y EARS AGO 06/30/2017 [facility] History of tobacco use QUIT TOBACCO >7 Y EARS AGO 09/17/2012 [facility] History of tobacco use CURRENT NON-TOBAC CO USER-HX OF USE 11/30/2004 [facility] History of tobacco use CURRENT NON-TOBAC CO USER-HX OF USE 07/03/2004 [facility] History of tobacco use CURRENT NON-TOBAC CO USER-HX OF USE 09/01/2003 [facility] History of tobacco use CURRENT NON-TOBAC CO USER-HX OF USE 09/16/2002 [facility] Plan of Care List of future care activities from Department of Veterans Affairs facilities. Additional future care activities may be listed in the Assessment and Plan section. Date/Time Care Activity Care Activity Detail Facili ty 02/02/2025 AMBULATORY - MEDICINE AMBULATORY - MEDICI ALVARO WORTHY [facility]
--- OUTSIDE RECORDS SUMMARY | 2025-02-02 18:07 | XMS_ITS ---
Author Organization [facility] Address [address] [facility] [address] [place] [address] Phone Care Team Providers Care Furniture Rental Consultant Name Role Phone Paula Sandoval MD Primary Care Provider [phone] Active Problems Problem Noted Date Diagnosed Date Type 2 diabetes mellitus, wi th long-term current use of insulin 01/19/2025 Pacemaker at end of battery life 01/12/2025 [...] lobe of lung 03/29/2024 Lesion of right [place] kidney 03/29/2024 Acute hypoxic respiratory failure 03/29/2024 [...] Min 14.2 mGy 14.2 mGy 0 mGy Fluoro 10.7 Minutes 0 Minutes 10.7 Minutes Air Kerma 164 mGy 0 mGy 164 mGy Dose Area Product (DAP) 1,755.21 Gy-cm2 0 Gy-cm2 1 ,755.21 Gy-cm2
--- OUTSIDE RECORDS SUMMARY | 2025-02-02 18:07 | XMS_ITS | Encounter Summary ---
Author Organization [facility] [employer] Address [address] [place] [address] Phone Care Team Providers Care Tube Machine Operator Name Role Phone Alejandro Macias MD Primary Care Provider [phone] Encounter Details Date Type Department Care Team (Late st Contact Info) Description 12/21/2024 [facility] [employer] [address] [place] [address] Smitha Bryan NP [address] [place] [address] Social History Tobacco Use [...] 12/21/2024 The patient was seen for a aare-qs-goxe visit as part of Transitional Care Management services. Attending Software Applications Specialist: TORY MCRAE Dialysis Location: [facility] Schedule: Shift: 2 INTERACTIVE CONTACT COMMENTS: [...] medication orders reviewed - no changes. [facility] Medications atorvastatin 80 mg tablet Take [...] a day. fluticasone propionate 50 mcg/actuation spray,suspension [place] 1 spray into both nostrils twice a [...] one tablet on Non-Dialysis Days. Friday/Friday/Friday/Friday] Current [facility] Allergies Allergen: allopurinol Reaction: Unknown Allergen: [...] relapse of symptoms. VISIT DIAGNOSES CPT Code 15800 - High complexity, seen 8-14 days post discharge or moderate complexity, seen [email or web address] days of discharge. 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
--- OUTSIDE RECORDS SUMMARY | 2025-02-02 18:07 | XMS_ITS | Clinical Summary ---
Author Organization [facility] Facility Address [address] [address] Care Team Providers Care Semiconductor Technician Name Role Phone Alejandro Macias MD Primary Care Provider [phone] Allergies Active Allergy Reactions Criticality Noted Date Comments Allopurinol 12/15/2018 Tamsulosin 12/15/2018 Iodine Other (see comments) 12/15/2018 Metformin 12/15/2018 Medications * This document contains information received from the source organization and may not represent a complete record from that organization. JANUVIA 50 MG tablet Take 50 mg by mouth 1 (one) time each day 3 10/28/19 19 Active nitroglycerin (NITROSTAT) 0.[address] 1 tablet under the tongue Active isosorbide mononitrate (IMDUR) 60 MG 24 hr tablet Take 1 tablet by mouth 1 (one) time each day Active insulin glargine (LANTUS) 100 UNIT/ML injection Inject 50 Units under the skin 1 (one) time each day Active fluticasone (FLONASE) 50 MCG/ACT nasal spray Administer 1 spray into each nostril 1 (one) time each day 4 10/17/19 19 Active dutasteride (AVODART) 0.5 MG capsule Take 1 capsule by mouth 1 (one) time each day Active amLODIPine (NORVASC) 10 MG tablet Take 10 mg by mouth daily 3 11/16/19 19 Active acetaminophen (TYLENOL) 325 MG tablet every 4 (four) hours Active Cholecalcifero l (VITAMIN D) 2000 units capsule Take 1 tablet by mouth 1 (one) time each day Active insulin regular (NOVOLIN R) 100 UNIT/ML injection as directed Active Ibrutinib (IMBRUVICA) 140 MG capsule Take 1 tablet by mouth 1 (one) time each day Active atorvastatin (LIPITOR) 80 MG tablet Take 80 mg by mouth 1 (one) time each day Active isosorbide mononitrate (IMDUR) 30 MG 24 hr tablet Take 30 mg by mouth every night NOTE: Takes 60 mg every morning Active glucosamine-ch ondroitin 500-400 MG tablet Take 1 tablet by mouth 1 (one) time each day Active carvedilol (COREG) 3.125 MG tablet Take 1 tablet by mouth every other day 01/21/25 after hospital BP running low 10/27/19 25 Active Docusate Sodium (DSS) 100 MG capsule Take 100 mg by mouth every 12 hours as needed Active Diclofenac Sodium 1 % gel Apply 4 g topically every 6 hours as needed 04/13/20 24 Active finasteride (PROSCAR) 5 MG tablet Take 5 mg by mouth in the morning. 04/13/20 24 Active loratadine (CLARITIN) 10 MG tablet Take 10 mg by mouth in the morning. 09/10/19 25 Active sevelamer carbonate (RENVELA) 800 MG tablet Take 800 mg by mouth in the morning and 800 mg at noon and 800 mg in the evening. Take with meals. 04/14/20 24 Active tamsulosin (FLOMAX) 0.4 MG 24 hr capsule Take 0.4 mg by mouth 1 (one) time each day 03/19/20 24 Active fexofenadine (EUGENIO) 180 MG tablet Take 1 Tablet (180 mg) by mouth daily for 2 doses. Take 180 mg of eugenio the night before and again morning of your procedure 01/13/20 25 Active folic acid (FOLVITE) 1 MG tablet Take 1 mg by mouth in the morning. 01/06/20 25 Active Pirtobrutinib (Jaypirca) 50 MG tablet Take 50 tablets by mouth in the morning. 01/11/20 25 Active furosemide (LASIX) 40 MG tablet Take 2 tablets (80 mg total) by mouth in the morning and 2 tablets (80 mg total) in the evening. Only on days pt is not doing dialysis. 01/22/20 25 Active losartan (COZAAR) 50 MG tablet Take 1 tablet by mouth 1 (one) time each day 025 Discontinued clopidogrel (PLAVIX) 75 MG tablet Take 1 tablet by mouth 1 (one) time each day 025 Discontinued Magnesium 400 MG tablet 2 (two) times a day 025 Discontinued aspirin 81 MG tablet 1 (one) time each day 025 Discontinued pantoprazole (PROTONIX) 40 MG EC tablet Take 40 mg by mouth in the morning and 40 mg in the evening. 12/12/19 025 Discontinued carvedilol (COREG) 6.25 MG tablet Take 6.25 mg by mouth in the morning and 6.25 mg in the evening. 04/26/20 24 025 Discontinued Epoetin Sarath (EPOGEN IJ) Epoetin Sarath (Epogen) 07/13/19 25 025 Discontinued furosemide (LASIX) 40 MG tablet Take 80 mg by mouth in the morning and 80 mg in the evening. 04/06/20 025 Discontinued(Re order (does not appear on AVS)) oxyCODONE-acet aminophen (PERCOCET) 5-325 MG per tablet Take 1 tablet by mouth every 30 minutes as needed 11/30/19 25 025 Discontinued furosemide (LASIX) 40 MG tablet Take 2 tablets (80 mg total) by mouth in the morning and 2 tablets (80 mg total) in the evening. 360 tablet 1 01/05/20 25 025 Discontinued(Re order (does not appear on AVS)) furosemide (LASIX) 40 MG tablet Take 2 tablets (80 mg total) by mouth in the morning and 2 tablets (80 mg total) in the evening. 360 tablet 1 01/05/20 25 025 Discontinued cephalexin (KEFLEX) 500 MG capsule Take 500 mg by mouth in the morning and 500 mg in the evening and 500 mg before bedtime. 01/21/20 25 025 magnesium oxide (MAG-OX) 400 MG tablet Take 400 mg by mouth 1 (one) time each day 025 Discontinued OLANZapine (ZyPREXA) 10 MG tablet Take 10 mg by mouth every night 025 Discontinued Active Problems Problem Noted Date Diagnosed Date Chronic lymphoid leukemia, disease 11/05/2019 Benign essential hypertension 11/05/2019 Chronic kidney disease stage 4 11/05/2019 Diabetes mellitus 11/05/2019 Nocturia 11/05/2019 Obesity 11/05/2019 Proteinuria 11/05/2019 Encounters Date Type Department Care Team Description 02/01/2025 TCM in Dialysis Clinic [address] [place] [address], [facility] [address] [place] [id number] Fabiola Puente NP 02/01/2025 Treatment [facility], [facility] [address] [place] [address] Fabiola Puente NP End stage renal disease; Dependence on renal dialysis 01/27/2025 Treatment 8[facility], [facility] [address] [place] [address] Marcela Gomez NP End stage renal disease; Dependence on renal dialysis 01/27/2025 Orders Only [facility], [facility] [address] [place] [address] Ro West MD 01/22/2025 Orders Only [facility], [facility] [address] [place] [address] Ro West MD 01/21/2025 Telephone [facility], [facility] [address] [place] [address] Ro West MD 01/15/2025 Orders Only [facility], [facility] [address] [place] [address] Ro West MD 01/11/2025 Treatment [facility], [facility] [address] [place] [address] Ro West MD End stage renal disease; Dependence on renal dialysis 01/06/2025 Orders Only [facility], [facility] [address] [place] [address] Ro West MD 01/04/2025 11:30 AM CDT Procedure visit [facility], [address] [place] [address] Fabiola Puente NP End stage renal disease (HCC) (Primary Dx) 01/04/2025 Orders Only [facility], [address] [address] Eufemia Rogel MA 01/04/[address] [address] [place] [address] Fabiola Puente NP End stage renal disease; Dependence on renal dialysis 01/04/2025 Documentation Only [facility], [address] [address] Elenita Zeng 12/30/2024 Orders Only [facility], [facility] [address] [place] [address] Ro West MD 12/28/2024 Orders Only [facility], [facility] [address] [place] [address] Ro West MD 12/28/2024 Treatment [facility], [facility] [address] [place] [address] Marcela Gomez NP End stage renal disease; Dependence on renal dialysis 12/21/2024 TCM in Dialysis Clinic [facility], [facility] [address] [place] [address] Marcela Gomez NP 12/21/2024 [facility], [facility] [address] [place] [address] Ro West MD 12/21/2024 Treatment [facility], [facility] [address] [place] [address] Marcela Gomez NP End stage renal disease; Dependence on renal dialysis 12/14/2024 Orders Only [facility], [facility] [address] [place] [address] Ro West MD 12/14/2024 TCM in Dialysis Clinic [address] [place] [address] [place] [address] Fabiola Puente NP 12/14/[address] [place] [address], [facility] [address] [place] [address] Fabiola Puente NP End stage renal disease; Dependence on renal dialysis 12/13/2024 Telephone [facility], [facility] [address] [place] [address] Sharee Chu MA 12/02/2024 Orders Only [facility], [facility] [address] [place] [address] Ro West MD 11/30/[address] [place] [address], [facility] [address] [place] [address] Fabiola Puente NP End stage renal disease; Dependence on renal dialysis 11/25/2024 Orders Only [facility], [facility] [address] [place] [address] Ro West MD 11/23/[address] [place] [address], [facility] [address] [place] [address] Fabiola Puente NP End stage renal disease; Dependence on renal dialysis 11/18/2024 Orders Only [facility], [facility] [address] [place] [address] Ro West MD 11/18/[address] [place] [address], [facility] [address] [place] [address] Ro West MD End stage renal disease; Dependence on renal dialysis 11/11/2024 Orders Only [facility], [facility] [address] [place] [address] Ro West MD 11/09/[address] [place] [address] [facility], [facility] [address] [place] [address] Marcela Gomez NP End stage renal disease; Dependence on renal dialysis 11/04/2024 Orders Only [facility], [facility] [address] [place] [address] Ro West MD 11/02/[address] [place] [address] [facility], [facility] [address] [place] [address] Fabiola Puente NP End stage renal disease; Dependence on renal dialysis from Last 3 Months Immunizations Immunization Administration [...] Procedure Name Priority Date/Time Associated Diagnosis Comments [facility] RESULTS Routine 01/27/2025 HD KINETICS Routine 01/27/2025 POST CHEMISTRY Routine 01/27/2025 IMMUNO CHEMISTRY Routine 01/27/2025 CHEMISTRY Routine 01/27/2025 HEMATOLOGY Routine 01/27/2025 HEMATOLOGY Routine 01/22/2025 HEMATOLOGY Routine 01/15/2025 HEMATOLOGY Routine 01/06/2025 [facility] RESULTS [...] 11/18/2024 HEMATOLOGY Routine 11/11/2024 HEMATOLOGY Routine 11/04/2024 from Last 3 Months Results * HD KINETICS (01/27/2025) Only the most recent of3 resultswithin the time period is included. % Urea Reduction 72 65 - 80 % [facility] 01/27/2025 01/28/2025 2:0 2 PM CDT Narrative Resulting Agency Comment Specimen source: Plasma Ro West MD LAB BLOOD ORDERABLES Final Re sult Performing Organization Address City/State/[facility] Co de Phone Number [facility] See order comments or contact performing lab Unknown, [place] * POST CHEMISTRY (01/27/2025) Only the most recent of3 resultswithin the time period is included. BUN Post Dialysis 8 6 - 19 mg/dL [facility] 01/27/2025 01/28/2025 2:0 2 PM CDT Narrative [facility] - 01/29/2025 Unless otherwise specified, test(s) performed at: [facility], [address] [place], [place] [id number] HEART NURSE: Fab French M.D. For any questions, please call customer service at FREQUENCY:MONTHLY Resulting Agency Comment Specimen source: Plasma us Ro West MD LAB BLOOD ORDERABLES Final Re sult Performing Organization Address [facility] de Phone Number [employer] [facility] See order comments or contact performing lab Unknown, [place] * IMMUNO CHEMISTRY (01/27/2025) Only the most recent of3 resultswithin the time period is included. Pathologist [facility] Hep B Surface Ag Negative Negative [facility] 01/27/2025 01/28/2025 2:1 6 PM CDT Narrative [facility] - 01/28/2025 Unless otherwise specified, test(s) performed at: [facility], [address] [place] [id number] HEART NURSE: Fab French M.D. For any questions, please call customer service at FREQUENCY:MONTHLY Resulting Agency Comment Specimen source: Serum us Ro West MD LAB BLOOD ORDERABLES Final Re sult Performing Organization Address [facility] de Phone Number [facility] See order comments or contact performing lab Unknown, [place] * (ABNORMAL) HEMATOLOGY (01/27/2025) Only the most recent of13 resultswithin the time period is included. Pathologist [facility] Neutrophils 8.0(L) 40.0 - 75.0 % [facility] Lymphocytes Relative 88.1(H) 19.0 - 48.0 % [facility] Comment: Confirmed by slide review. Monocytes 0.2(L) 3.0 - 10.0 % [facility] Eosinophils Relative 0.6 0.0 - 7.0 % [facility] Basophils Relative 0.7 0.0 - 1.5 % [facility] 2.4 0.0 - 4.0 % [facility] WBC 17.15(H) 4.80 - 10.80 1000/mcL [facility] RBC 3.08(L) 4.70 - 6.10 mill/mcL [facility] Hematocrit 33.3(L) 42.0 - 52.0 % [facility] MCV 108(H) 80 - 100 fl [facility] MCH 32.3(H) 27.0 - 31.0 pg [facility] MCHC 29.8(L) 30.0 - 36.0 g/dL [facility] RDW 16.7(H) 11.5 - 14.5 % [facility] Hemoglobin 9.9(L) 14.0 - 18.0 g/dL [facility] Hemoglobin x 3 29.7(L) 42.0 - 54.0 % [facility] Platelets 64(L) 130 - 400 1000/mcL [facility] 01/27/2025 01/28/2025 12: 10 PM CDT Narrative [facility] - 01/28/2025 Unless otherwise specified, test(s) performed at: [facility], [address] [place] [address] HEART NURSE: Fab French M.D. For any questions, please call customer service at FREQUENCY:MONTHLY Resulting Agency Comment Specimen source: Blood us Ro West MD LAB BLOOD ORDERABLES Final Re sult [facility] See order comments or contact performing lab Unknown, [place] * (ABNORMAL) [employer] [facility] (01/27/2025) Only the most recent of6 resultswithin the time period is included. BUN 29(H) 6 - 19 mg/dL [facility] Creatinine 4.15(H) 0.60 - 1.30 mg/dL [facility] BUN/Creatinine Ratio 7.0(L) 10.0 - 20.0 [facility] Sodium 139 136 - 145 mEq/L [facility] Potassium 4.7 3.5 - 5.1 mEq/L [facility] Chloride 102 96 - 108 mEq/L [facility] Bicarbonate (CO2) 27 22 - 29 mEq/L [facility] Calcium 8.6 8.4 - 10.2 mg/dL [facility] Corrected Calcium 8.9 8.4 - 10.2 mg/dL [facility] Comment: Corrected Calcium is not equivalent to measured Ionized Calcium. Phosphorus 4.1 2.6 - 4.5 mg/dL [facility] Calcium Phosphorus Product 35 0 - 54 [facility] Calcium Phosporus Product, Cor 36 0 - 54 [facility] Total Protein 5.2(L) 6.0 - 8.5 g/dL [facility] Albumin 3.6 3.5 - 5.2 g/dL [facility] Globulin, Total 1.6(L) 2.0 - 4.0 g/dL [facility] A/G Ratio 2.3(H) 1.0 - 2.0 [facility] Glucose 135(H) 70 - 100 mg/dL [facility] Iron 66 45 - 160 mcg/dL [facility] UIBC 166 155 - 355 mcg/dL [facility] TIBC 232 185 - 515 mcg/dL [facility] Iron Saturation (TSat) 28 20 - 55 % [facility] 01/27/2025 01/28/2025 2:1 6 PM CDT Narrative [facility] - 01/28/2025 Unless otherwise specified, test(s) performed at: [facility], [address] [place] [address] HEART NURSE: Fab French M.D. For any questions, please call customer service at FREQUENCY:MONTHLY Resulting Agency Comment Specimen source: Serum us Ro West MD LAB BLOOD ORDERABLES Final Re sult [facility] See order comments or contact performing lab Unknown, [place] * [facility] Results (01/27/2025) Only the most recent of3 resultswithin the time period is included. eNPCR 0.55 [facility] nPCR_HD 0.60 [facility] PCR 45.93 [facility] eKt/V Gotch 1.31 [facility] [place] WSTDKT/V 2.4 [facility] eKdrt/V 1.31 [facility] spKt/V (Daugirdas II) 1.48 [facility] spKt/V Gotch 1.50 [facility] eKt/V ([place]) 1.30 [facility] 01/27/2025 01/27/2025 [facility] Ordering Provider LAB BLOOD ORDERABLES Final Result [facility] Contact Performing lab Unknown, [place] * (ABNORMAL) SPECIAL CHEMISTRY (11/25/2024) Hemoglobin A1C 7.1(H) 4.8 - 5.9 % [facility] 11/25/2024 11/26/2024 10: 21 AM CDT Narrative [facility] - 11/26/2024 Unless otherwise specified, test(s) performed at: [facility], [address] [place] [address] HEART NURSE: Fab French M.D. For any questions, please call customer service at FREQUENCY:MONTHLY Resulting Agency Comment Specimen source: Blood Ro West MD LAB BLOOD BANK TEST ORDERABLE S Final Result Performing Organization Address City/[facility]/ZIP Co de Phone Number [facility] See order comments or contact performing lab Unknown, [place] from Last 3 Months Insurance [place] [employer] [employer] 1,2,3 (VACCN) Care Teams Semiconductor Technician Relationship Specialty Start Date End Date Alejandro Macias MD [address] [place] [id number] PCP - General Family Medicine 12/15/18
--- OUTSIDE RECORDS SUMMARY | 2025-02-02 18:07 | XMS_ITS | Encounter Summary ---
Author Organization [facility], [facility] Address [address] [place] [address] Phone Care Team Providers Care Tree Specialist Name Role Phone Alejandro Macias MD Primary Care Provider [phone] Encounter Details Date Type Department Care Team (Late st Contact Info) Description 12/14/2024 [facility] [address] [place] [address] Jose L Alexander, BEHAVIORAL MODIFICATION ASSISTANT [address] [place] [address] Social History Tobacco Use Types [...] 12/14/2024 The patient was seen for a xikp-mg-mynv visit as part of Transitional Care Management services. Attending Bagging Salvager: TORY MCRAE Dialysis Location: [facility] Schedule: Shift: 2 INTERACTIVE [...] EGD Sepsis- resolved VISIT DIAGNOSES CPT Code 07313 - High complexity, seen within 7 days of discharge. N18.6 End stage renal disease Signed by: JOSE L ALEXANDER NP on 12/14/2024 at 12:03:22 PM Transcribed by: JOSE L ALEXANDER NP on 12/14/2024 at 12:03:22 PM documented in this encounter Plan of Treatment Not on file documented as of this encounter Visit Diagnoses Not on filedocumented in this encounter Care Teams Tree Specialist Relationship Specialty Start Date End Date Alejandro Macias MD [address] [place] [address] PCP - General Family Medicine 12/15/18 documented as of this encounter
--- OUTSIDE RECORDS SUMMARY | 2025-02-02 18:08 | XMS_ITS | Encounter Summary ---
[facility] Organization [facility] Address [address] [place] [address] Phone Care Team Providers Care In Service Coordinator Name Role Phone Alejandro Macias MD Primary Care Provider + [phone] Encounter Details Date Type Department Care Team (Late st Contact Info) Description 02/01/2025 Treatment [facility] [employer], [facility] [address] [place] [address] Jose L Alexander, [employer] [address] [place] [address] End stage renal disease; Dependence [...] Note - Jose L Alexander NP - 02/01/2025 12:00 AM CDT BASIC NOTE Patient: Valente Renae : 1945 Note Author: JOSE L ALEXANDER NP Service Date: 02/01/2025 This patient was personally seen [id number] for a basic visit as part of routine monthly dialysis care for end stage renal disease. Attending Traffic Superintendent: TORY MCRAE Dialysis Location: [facility] Schedule: Shift: 2 OVERVIEW COMMENTS: Seen on Dialysis. Has had n/v with low grade fever (99.4). He does not want to go to the ED. He will go if he continues to have a fever. Follow up with PCP HOME MEDICATIONS Medications reviewed. DIALYSIS PRESCRIPTION Treatment Data Treatment Date: 02/01/2025 started at: 11:24 AM Dialysate / Machine Temp (prescribed): 37.0*C Dialysate / Machine Temp (actual): 36.5*C BFR (prescribed): 450 BFR (actual): 450 DFR (prescribed): Manual 800 DFR (actual): 800 Prescribed Time: 04:00 EDW (kg): 101.0 Dialyzer: 180NRe Optiflux Dialysate: 3.0 K, 2.5 Ca, 1.0 Mg, 100 Dextrose (N3251) Sodium: 138 Bicarb: 32 Pre Dialysis Vitals Pre BP Sit: 135/64 Pre Wt (kg): 103.6 EDW Deviation (kg): 2.6 Temp: 99.0*F Current Dialysis Vitals BP Sit: 109/54 AP/MASTER BLACK BELT: 209/190 Pulse: 93 TREATMENT MEDICATIONS ORDERS Heparin Sodium (Porcine) 1,000 Units/mL Systemic 5000 units IVP Every Treatment 05/22/2024 - 05/21/2025 Iron Sucrose (Venofer) 100 mg IVP 3X Week During Dialysis 01/27/2025 - 02/17/2025 Vitamin D (Calcitriol) Oral 0.25 mcg ORAL Every Treatment 12/02/2024 - 11/29/2025 BP AND FLUID ASSESSMENT Post BP Sit 136/73 - 01/29/2025 129/61 - 01/27/2025 136/52 - 01/25/2025 Post Wt (kg) 101.2 - 01/29/2025 100.9 - 01/27/2025 101.0 - 01/25/2025 EDW (kg) 101.0 - 01/29/2025 101.0 - 01/27/2025 101.0 - 01/25/2025 Deviation (kg) 0.2 - 01/29/2025 -0.1 - 01/27/2025 0.0 - 01/25/2025 ADEQUACY ASSESSMENT spKt/V (Daugirdas II) 1.48 (01/27/25) 1.42 (12/30/24) 1.56 (11/25/24) eKdrt/V 1.31 (01/27/25) 1.24 (12/30/24) 1.36 (11/25/24) % Urea Reduction 72 (01/27/25) 72 (12/30/24) 76 (11/25/24) BUN 29 (01/27/25) 36 (12/30/24) 36 (12/28/24) BUN Post Dialysis 8 (01/27/25) 10 (12/30/24) 10 (11/25/24) Creatinine 4.15 (01/27/25) 5.01 (12/28/24) 4.18 (11/25/24) Bicarbonate (CO2) 27 (01/27/25) 25 (12/28/24) 25 (11/25/24) Sodium 139 (01/27/25) 141 (12/28/24) 141 (11/25/24) ACCESS ASSESSMENT Vascular access examined. Current access is permanent and functioning well. AVGraft Synthetic - [place] Acuseal Right Upper Arm Active (In Use) - 01/01/2025 Placed - 11/29/2024 ANEMIA ASSESSMENT Hemoglobin 9.9 (01/27/25) 9.9 (01/22/25) 10.2 (01/15/25) Iron Saturation (TSat) 28 (01/27/25) 29 (12/28/24) 49 (11/25/24) Ferritin 516 (12/02/24) 582 (11/25/24) 197 (08/26/24) Iron 66 (01/27/25) 60 (12/28/24) 109 (11/25/24) TIBC 232 (01/27/25) 205 (12/28/24) 222 (11/25/24) Reticulocyte Hemoglobin 33.5 (12/28/24) 33.4 (04/15/24) MCV 108 (01/27/25) 106 (12/28/24) 100 (11/25/24) Folate ?24.0 (08/26/24) Vitamin B-12 493 (08/26/24) Platelets 64 (01/27/25) 67 (12/28/24) 108 (11/25/24) BMM ASSESSMENT Calcium 8.6 01/27/25 8.3 12/28/24 8.6 11/25/24 Corrected Calcium 8.9 01/27/25 8.5 12/28/24 8.7 11/25/24 Phosphorus 4.1 01/27/25 3.3 12/28/24 4.8 11/25/24 Calcium Phosphorus Product 35 01/27/25 27 12/28/24 41 11/25/24 PTH 432 11/25/24 275 08/26/24 282 05/27/24 Vitamin D, 25-OH, Total 55.1 08/26/24 Magnesium 2.3 11/25/24 2.1 08/26/24 1.9 05/27/24 Alkaline Phosphatase 103 11/25/24 82 08/26/24 104 05/27/24 Aluminum ?5 08/26/24 ?5 04/08/24 NUTRITION ASSESSMENT Albumin 3.6 01/27/25 3.7 12/28/24 3.9 11/25/24 Potassium 4.7 01/27/25 4.4 12/28/24 4.4 11/25/24 eNPCR 0.55 01/27/25 0.62 12/30/24 0.71 11/25/24 Hemoglobin A1C 7.1 11/25/24 7.5 08/26/24 7.2 05/27/24 ADDITIONAL LABS WBC 17.15 (01/27/25) 12.39 (12/28/24) 49.30 (11/25/24) Cholesterol 104 (08/26/24) HDL 37 (08/26/24) LDL Calculated 32 (08/26/24) Triglycerides 174 (08/26/24) Hepatitis B Surface Ab ?10 (10/28/24) ?10 (09/02/24) ?10 (08/26/24) ADDITIONAL COMMENT COMMENTS: No changes to POC or orders Signed by: JOSE L ALEXANDER NP on 02/01/2025 at 04:36:52 PM Transcribed by: JOSE L ALEXANDER NP on 02/01/2025 at 04:36:52 PM documented in this encounter Plan of Treatment Not on file documented as of this encounter Visit Diagnoses Diagnosis End stage renal disease Dependence on renal dialysis documented in this encounter Care Teams In Service Coordinator Relationship Specialty Start Date End Date Alejandro Macias MD [address] [place] [id number] PCP - General Family Medicine 12/15/18 documented as of this encounter
--- OUTSIDE RECORDS SUMMARY | 2025-02-02 18:08 | XMS_ITS | Clinical Summary ---
Author Organization [facility] Address [address] [place] [address] Phone Care Team Providers Care Cloth Weigher Name Role Phone Paula Sandoval MD Primary [...] Constipation. Active fluticasone propionate (FLONASE) 50 mcg/spray Wilson, Suspension nasal inhaler Administer 1 Wilson in each nostril 2 times daily. Active acetaminophen (TYLENOL) 325 mg tablet Take 325 mg by mouth every 6 hours as needed. Active finasteride (PROSCAR) 5 mg tablet Take 5 mg by mouth daily. Active cholecalcifero l, Vitamin D3, (VITAMIN D3) 25 mcg (1,000 unit) Capsule Take 50 mcg by mouth daily. Active insulin glargine (LANTUS) 100 unit/mL pen syringe Inject 50 Units by subcutaneous injection daily. Active tamsulosin (FLOMAX) 0.4 mg capsule Take 0.8 mg by mouth daily with supper. Active diclofenac sodium (VOLTAREN) 1 % gel Apply 4 Grams to affected area 4 times daily as needed for Pain. Active loratadine (CLARITIN) 10 mg tablet Take 10 mg by mouth daily in the morning. Active atorvastatin (LIPITOR) 80 mg tablet Take 1 Tablet (80 mg) by mouth daily. 30 Tablet 4 1:52 PM CDT 04/06/20 Active Additional Information Patient taking differently:80 mg OralDAILY LATE, Reported on 01/31/2025 furosemide (LASIX) 40 mg tablet Take 2 Tablets (80 mg) by mouth two times daily, 7 hours apart. 120 Tablet 4 1:52 PM CDT 04/06/20 Active Additional Information Patient taking differently: 100 mgOralEVERY 48 HOURS, Reported on 01/18/2025 isosorbide mononitrate (IMDUR) 120 mg Extended Release 24 hour tablet Take 1 Tablet by mouth. 04/27/20 Active sevelamer carbonate (RENVELA) 800 mg Tablet Take 800 mg by mouth 3 times daily with meals. 04/14/20 Active glucosamine-ch ondroitin (ARTHX DS) 500-400 mg Capsule Take 1 Capsule by mouth. Active carvediloL (COREG) 6.25 mg tablet Take 1 Tablet (6.25 mg) by mouth every 12 hours. 90 Tablet 3 07/21/19 Active Additional Information Patient taking differently: 3.125 mgOralEVERY 48 HOURS, Reported on 01/31/2025 epoetin janet (EPOGEN INJECTION) Epoetin Janet (Epogen) 11/10/19 25 2025 Active carvediloL (COREG) 3.125 mg tablet Take 1 Tablet by mouth. 10/27/19 Active oxyCODONE-acet aminophen (PERCOCET) 5-325 mg tabletIndicati ons:ESRD (end stage renal disease) (CMS/HCC) Take 1 Tablet by mouth every 4 hours as needed for Pain, Moderate. Max Daily Amount: 6 Tablets 15 Tablet 5 11:43 AM CDT 11/30/19 Active pantoprazole (PROTONIX) 40 mg Tablet, Delayed Release (E.C.) Take 1 Tablet (40 mg) by mouth 2 times daily. 60 Tablet 12/12/19 Active Additional Information Patient taking differently:40 mg OralDAILY, Reported on 01/19/2025 folic acid (FOLVITE) 1 mg tablet Take 1 mg by mouth daily. Active pirtobrutinib (Jaypirca) 50 mg TabletIndicati ons:CLL (chronic lymphocytic leukemia) (CMS/HCC) Take 1 tablet (50mg) by mouth daily. 90 Tablet 01/11/20 Active fexofenadine (EUGENIO) 180 mg tablet Take 1 Tablet (180 mg) by mouth daily for 2 doses. Take 180 mg of eugenio the night before and again morning of your procedure 2 Tablet 01/13/20 Active diphenhydrAMIN E (BENADRYL) 50 mg capsule Take this dose [...] of surgery. 9 Tablet 01/13/20 25 Active insulin regular (HumuLIN R,NovoLIN R) 100 unit/mL vial Inject 15 Units by subcutaneous injection 2 times daily. Active insulin glargine (LANTUS) 100 unit/mL injection Inject 15 Units by subcutaneous injection 2 times daily. Active OLANZapine (ZyPREXA) 10 mg tablet Take 10 mg by mouth daily at bedtime. Active hydrocortisone acetate (ANUSOL-HC) 25 mg Suppository Insert 1 Suppository (25 mg) by rectum every 12 hours as needed for Itching. 12 Suppository 1 01/21/20 Active pirtobrutinib (Jaypirca) 50 mg TabletIndicati ons:CLL (chronic lymphocytic leukemia) (CMS/HCC) Take 1 tablet (50mg) by mouth daily. 90 Tablet 12/24/19 25 2024 Discontin ued(Reord er) cephALEXin (KEFLEX) 500 mg capsule Take 1 Capsule (500 mg) by mouth every 8 hours for 3 days. 9 Capsule 01/21/20 25 2024 Active Problems Problem Noted Date Diagnosed Date [...] lobe of lung 03/29/2024 Lesion of right white earth kidney 03/29/2024 Acute hypoxic respiratory failure 03/29/2024 Anemia 03/29/2024 Thrombocytopenia 03/29/2024 Impaired mobility 02/02/2021 CLL (chronic lymphocytic leukemia) 02/02/2021 History of COVID-19 02/02/2021 Generalized muscle weakness 01/30/2021 Acute cystitis without hematuria 01/30/2021 Stage 4 chronic kidney disease 11/05/2019 Chronic lymphocytic leukemia 11/05/2019 Encounters Date Type Department Care Team Description 08/08/202 5 10:00 AM CDT Video Visit [facility] Cancer and Hemat[facility] [place] [address] [place] [address] Lacie Ortiz, ALL CLL (chronic lymphocytic leukemia) ([facility]) (Primary Dx); ESRD (end stage renal disease) on dialysis ([facility]) 5 Telephone [facility] [address] [facility] [address] [place] [phone] Sotero Cai MD Appointment Notification; reschedule appt (Dialysis conflict) 5 Abstract [facility] [address] [facility] [address] [place] [phone] Scanning, Provider 5 1:44 PM CDT - 5 2:59 PM CDT Surgery [facility] Cardiac Contract Loader [address] [place] [phone] Sotero Cai MD Pacemaker Upgrade to Biventricular ICD w Anesthesia 5 1:10 PM CDT Anesthesia Event [facility] Cardiac Contract Load[facility] [address] [place] [phone] Cody Sow MD 5 11:09 AM CDT - 5 6:46 PM CDT Hospital Encounter [facility] 4B Cardiac [address] [place] [phone] Sotero Cai MD Zguri, Liridon, MD Dailey, Zachariah, MD Type 2 diabetes mellitus, with long-term current use of insulin ([facility]) Discharge Disposition: Home or Self Care 5 Travel 5 Telephone [facility] [address] [facility] [address] [place] [phone] Lyndsey Dorsey NP Needs to reschedule 5 Specialty Pharmacy [facility] [address] [facility] [phone] Wendi Bauman, PHARMACIST Specialty Pharmacy Refill Coordination 5 Telephone [facility] [address] [place] [phone] Sotero Cai MD Medication Question/Info 5 Abstract [facility] Cancer and Hematology [facility] [address] [place] [address] [address] [place] [phone] Umm Dotson DO 5 Orders Only [facility] Cancer [facility] [place] [address] [facility] 2 [place] [address] Umm Dotson DO CLL (chronic lymphocytic leukemia) (CMS/HCC) (Primary Dx) 5 Prep for Surgery [place] [id number] [place] [phone] Sotero Cai MD Cardiac pacemaker in situ (Primary Dx); Left ventricular ejection fraction of 20-34%; Pacemaker at end of battery life; Ischemic dilated cardiomyopathy (CMS/HCC); Combined systolic and diastolic congestive heart failure, unspecified HF chronicity (CMS/HCC); Cardiac left ventricular ejection fraction 21-40 percent 5 Telephone [place] [address] [place] [phone] Anum Dias RN Needs Appointment 5 Chart Note [place] [address] [place] [phone] Anum Dias RN 5 8:00 AM CDT Procedure visit [place] [address] [place] [phone] Sotero Cai MD Sick sinus syndrome (CMS/HCC) (Primary Dx) 5 Refill [facility] Cancer [facility] [place] [address] [place] [address] Umm Dotson, CLL (chronic lymphocytic leukemia) ([facility]/H[facility]) 5 Telephone [facility] [address] [place] [phone] Sotero Cai MD Question 5 Telephone [facility] [address] [place] [phone] Sotero Cai MD Question 5 Specialty Pharmacy [facility] [address] [place] [address] [place] [phone] Wendi Bauman, PHARMACIST 5 Abstract [facility] Cancer and Hematology [facility] [address] [place] [address] 248 [address] [place] [phone] Umm Dotson DO 5 Telephone [facility] [address] [place] [phone] Sotero Cai MD Pacemaker has been transferred 5 Telephone [facility] [address] [place] [phone] Sotero Cai MD Question 5 Telephone [facility] [address] [place] [phone] Sotero Cai MD Question; Returning call about the carelink download 5 External Device Data STL ABSTRACTION Provider, Abstract 5 External Device Data STL ABSTRACTION Provider, Abstract 5 External Device Data STL ABSTRACTION Provider, Abstract 5 External Device Data STL ABSTRACTION Provider, Abstract 5 3:30 PM CDT [facility] [place] [address] [place] [address] Iqra Brito NP CLL (chronic lymphocytic leukemia) ([facility]) (Primary Dx); ESRD (end stage renal disease) on dialysis ([facility]); Encounter for education; Gastric ulcer, unspecified chronicity, unspecified whether gastric ulcer hemorrhage or perforation present 5 Orders Only [facility] - [facility] [address] [place] [address] Clinton Ascencio DO Gastric ulcer with hemorrhage, unspecified chronicity (Primary Dx) 5 12:00 PM CDT Office Visit [facility] and Hematology [place] [address] [facility] [address] [facility] [address] [place] [address] Umm Dotson DO CLL (chronic lymphocytic leukemia) ([facility]) (Primary Dx) 5 Orders Only [facility] Cancer [facility] Hematology [place] [address] [place] [address] Umm Dotson DO CLL (chronic lymphocytic leukemia) ([facility]) (Primary Dx) 5 Orders Only [facility] Cancer and Hematology [address] [place] [address] Umm Dotson DO CLL (chronic lymphocytic leukemia) ([facility]) (Primary Dx) 5 1:45 PM CDT Office Visit [facility] Vascular Surgery [place] [address] [place] [address] [address] [place] [address] Klarissa Flowers MD ESRD (end stage renal disease) ([facility]) (Primary Dx); S/P arteriovenous (AV) graft placement 5 Telephone [facility] Vascular Surgery [place] [address] [place] [address] [address] [place] [address] Klarissa Flowers MD Question 5 Orders Only [facility] HIM [address] [place] [phone] Provider, Abstract 5 10:50 AM CDT Anesthesia Event [facility] Endoscopy [address] [place] [phone] Tariq Ruggiero MD Edwards, Cary Dawn, RUBIN 5 8:20 AM CDT - 5 8:40 AM CDT Surgery [facility] Endoscopy [address] [place] [phone] Clinton Ascencio, ESOPHAGOGASTRODUODENOSCOPY 5 External Device Data STL ABSTRACTION Provider, Abstract 5 Travel 5 12:47 AM CDT - 5 8:00 PM CDT Hospital Encounter [facility] 3D Medical Telemetry [address] [place] [phone] Gema Iniguez, MD More Weiss, MD Francisco Hurst, MD Pita Birmingham, MD Jason Dominguez, Ruperto Junior MD Severe sepsis with septic shock ([facility]) Discharge Disposition: Home or Self Care 5 7:30 AM CDT Anesthesia Event [facility] Operating Room [address] [place] [phone] Jeffry Walker MD 5 7:20 AM CDT - 5 9:09 AM CDT Surgery [facility] Operating Room [address] [place] [phone] Klarissa Flowers MD ARTERIOVENOUS GRAFT INSERTION 5 5:30 AM CDT - 5 12:05 PM CDT Hospital Encounter [facility] 3J Pre-Op [address] [place] [phone] Klarissa Flowers MD End stage renal disease (CMS/HCC) Discharge Disposition: Home or Self Care 5 Prep for Surgery [facility] Vascular Surgery [address] [address] Klarissa Flowers MD ESRD (end stage renal disease) (CMS/HCC) (Primary Dx) 5 Telephone [facility] Vascular Surgery [address] [address] Klarissa Flowers MD Surgery Talk 5 Telephone [facility] Vascular Surgery [address] [address] Klarissa Flowers MD Erroneous encounter-disregard 5 Orders Only [facility] Vascular Surgery [address] [address] Klarissa Flowers MD ESRD (end stage renal disease) ([facility]) (Primary Dx); Encounter for pre-operative examination; Abnormal coagulation profile 5 Telephone [facility] Vascular Surgery [address] [address] Klarissa Flowers MD Appointment Notification 5 12:30 PM CDT Office Visit [facility] Vascular Surgery [address] [address] Klarissa Flowers MD ESRD (end stage renal disease) (CMS/HCC) (Primary Dx); Dilated cardiomyopathy (CMS/HCC); Type 2 diabetes mellitus with stage 4 chronic kidney disease, with long-term current use of insulin ([facility]); Acute combined systolic and diastolic congestive heart failure (CMS/HCC); 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 5 11:00 AM CDT Ancillary Procedure [facility] [address] Klarissa Flowers MD Benign hypertension with ESRD (end-stage renal disease) ([facility]) 5 Telephone [facility] Vascular Surgery [place] [address] [place] [address] Klarissa Flowers MD Appointment Verification 5 Telephone [facility] Vascular Surgery [place] [address] [place] [address] Klarissa Flowers MD Question from Last 3 Months Immunizations Immunization Administration Dates Next Due (ADACEL/BOOSTRIX)(10 YR UP) TDAP VACCINE, 0.5ML, IM 12/20/2020 (HEPLISAV-B)(18 YR UP) HEPAT ITIS B VACCINE CPG-ADJUVANTED (HEPB-CPG) 2-4 DOSE, IM 04/29/2024 (PFIZER)(12 YR UP) COVID-19 VACCINE - EMERGENCY USE AUTHORIZATION, MRNA, [id number](PF) 30 MCG/0.3 ML IM SUSP 08/18/2020,07/24/2020,06/23/2020 (PNEUMOVAX [...] Sign Reading Time Taken Comments Blood Pressure 108/50 01/20/2025 4:02 PM CDT Pulse 43 01/20/2025 4:02 PM CDT Temperature 36.6 C (97.8 F) 01/20/2025 4:02 PM CDT Respiratory Rate 18 01/20/2025 4:02 PM CDT Oxygen Saturation 95% 01/20/2025 4:02 PM CDT Inhaled Oxygen Concentration - - Weight 101.7 kg (224 lb 3.3 oz) 01/20/2025 3:37 PM CDT Height 180.3 cm (5' 11 ) 01/28/2025 9:58 AM CDT Body Mass Index 31.27 01/19/2025 6:17 PM CDT Plan of Treatment Upcoming Encounters Date Type Department Care Team (Latest Contact Info) Description 02/07/2025 2:00 PM CDT Hospital Encounter [facility] Endoscopy [address] [place] [address] Clinton Ascencio, DO [address] [address] 02/07/2025 2:00 PM CDT - 02/07/2025 2:20 PM CDT Surgery [facility] Endoscopy [address] [place] [address] Clinton Ascencio, DO [address] [address] ESOPHAGOGASTRODUODENOSCOPY 02/16/2025 12:30 PM CDT Nurse Only [facility] [address] [place] [address] Sotero Cai MD [address] [place] [phone] 02/28/2025 10:30 AM CDT Appointment [facility] Laboratory Services [address] [place] [address] 03/18/2025 11:30 AM CDT Office Visit [facility] Vascular Surgery [place] [address] [place] [address] Klarissa Flowers MD [address] [place] [address] 03/21/2025 12:05 PM CDT Appointment [facility] Laboratory Services [address] [place] [address] 03/21/2025 1:00 PM CDT Office Visit [facility] Cancer and Hematology [place] [address] [place] [address] Umm Dotson DO [address] [place] [address] 05/09/2025 1:00 PM CONSULTANT INTERNSH[employer] Office Visit [facility] [address] [place] [address] Lyndsey Dorsey, MARCELLO [address] [place] [address] 07/18/2025 11:00 AM CONSULTANT INTERNSHIP Office Visit [facility] [address] [place] [address] Sotero Cai MD [address] [place] [address] Eliana Davis NP [address] [place] [address] Scheduled Procedures Name Priority Associated Diagnoses Date/Ti [...] years Discontinued Medical Devices Implanted Type Area Boilermaker Apprentice Device Identifier Shelf Expiration Date Model / Serial / Lot Cath Dialysis Glidepath 14.5fr 23cm Std [id number] - [id number] Implanted:Qty : 1 on 04/01/2024 by Kim Flowers MD at [facility] Catheter Right: Chest BARD NUVIA VASC [id number] 09/20/2025 [id number] / / [id number] Clip Ligating Horizon Red [id number] - Csc - [id number] Implanted:Qty : 1 on 11/29/2024 by Klarissa Flowers MD at [facility] Clip Right: Arm [employer] INC [id number] 08/06/2029 [id number] / / [id number] Clip Ligating Horizon Med Ti [id number] [place] [facility] [place] [id number] Implanted:Qty : 1 on 11/29/2024 by Klarissa Flowers MD at [facility] Clip Right: Arm TELEFLEX- WECK CLOSURE SYS [id number] 05/30/2029 [id number] / / [id number] Steam Gigger-D [place] Xt Hf Quad Mri [id number] Df4 Surescan Okyf7er - [id number] Implanted:Qty : 1 on 01/19/2025 by Sotero Cai MD at [facility] Defibrillator N/A: Chest Wall MEDTRONIC- CARD RHYTHM MGMT [id number] 04/19/2026 [id number] / [id number] / Graft Vasc Propaten 4-9cwu07mm [id number] - [id number] Implanted:Qty : 1 on 11/29/2024 by Klarissa Flowers MD at [facility] Graft Right: Arm [employer] [id number] 07/19/2027 [id number] / [id number] / Agent Hemostat Surgicel 2x3in 1952s - [id number] Implanted:Qty : 1 on 11/29/2024 by Klarissa Flowers MD at [facility] Hemostatic Right: Arm J[employer]J- [employer] [id number] 09/20/2028 [id number] / / [id number] Lead Sprint Quattro Secure 62cm [id number] - Csc - [id number] Implanted:Qty : 1 on 01/19/2025 by Sotero Cai MD at [facility] Lead N/A: Chest Wall MEDTRONIC- CRM - BULK BUY [id number] 10/20/2026 [id number] / [id number] V / Lead Attain 88cm St Vent Quad 4798-88 - [id number] Implanted:Qty : 1 on 01/19/2025 by Sotero Cai MD at [facility] Lead N/A: Chest Wall MEDTRONIC- CARD RHYTHM MGMT [id number] 08/25/2026 [id number] / [id number] V / Pacemaker Procedures Procedure Name Priority Date/Time Associated Diagnosis Comments URIC ACID Routine 01/24/2025 9:17 AM CDT CLL (chronic lymphocytic leukemia) (CMS/HCC) LACTATE DEHYDROGENASE Routine 01/24/2025 9:17 AM CDT CLL (chronic lymphocytic leukemia) (CMS/HCC) COMPREHENSIVE METABOLIC PANEL Routine 9:17 AM CDT CLL (chronic lymphocytic leukemia) (CMS/HCC) CBC WITH DIFFERENTIAL Routine 01/24/2025 9:17 AM CDT CLL (chronic lymphocytic leukemia) (CMS/HCC) TELEMETRY REPORT 01/21/2025 2:44 AM CDT POC GLUCOSE Routine 01/20/2025 4:36 PM CDT HEMODIALYSIS Routine 01/20/2025 1:02 PM CDT POC GLUCOSE Routine 01/20/2025 10:51 AM CDT POC GLUCOSE Routine 01/20/2025 7:00 AM CDT DIFFERENTIAL, MANUAL Routine 01/20/2025 6:30 AM CDT COMPREHENSIVE METABOLIC PANEL Routine 6:30 AM CDT CBC WITH DIFFERENTIAL Routine 01/20/2025 6:30 AM CDT POC GLUCOSE Routine 01/19/2025 7:24 PM CDT XR CHEST PA AND LATERAL 2 VW Pending Discharge 01/19/2025 7:01 PM CDT EKG 12-LEAD Stat 01/19/2025 5:06 PM CDT EKG 12-LEAD MAGNET Pending Discharge 01/19/2025 5:05 PM CDT POC GLUCOSE Routine 01/19/2025 4:09 PM CDT PACEMAKER UPGRADE TO BIVENTRICULAR ICD W ANESTHESIA Routine 01/19/2025 3:44 PM CDT Pacemaker at end of battery life Cardiac pacemaker in situ Cardiac left ventricular ejection fraction 21-40 percent Dilated cardiomyopathy (CMS/HCC) Chronic combined systolic and diastolic CHF (congestive heart failure) (CMS/HCC) Ischemic dilated cardiomyopathy (CMS/HCC) POC GLUCOSE Routine 01/19/2025 3:31 PM CDT POC GLUCOSE Routine 01/19/2025 2:55 PM CDT PREPARE PLATELETS Stat 01/19/2025 2:18 PM CDT POC GLUCOSE Routine 01/19/2025 2:04 PM CDT [place] ANES INSERT SUPRAGLOTTIC AIRWAY Routine 01/19/2025 1:40 PM CDT TRANSFUSE PLATELETS Routine 01/19/2025 12:58 PM CDT XR CHEST PA OR AP 1 VW Pending Discharge 01/19/2025 12:44 PM CDT PREPARE PLATELETS Routine 01/19/2025 12:10 PM CDT EKG 12-LEAD Pending Discharge 01/19/2025 11:56 AM CDT BASIC METABOLIC PANEL Routine 01/19/2025 11:53 AM CDT PROTIME-INR Routine 01/19/2025 11:53 AM CDT CBC WITH DIFFERENTIAL Routine 01/19/2025 11:53 AM CDT WV REM INTERROG PM/LDLS PM/I DS <90 D TECH REVIEW Routine 01/10/2025 7:41 AM CDT Sick sinus syndrome (CMS/HCC) WV REM INTERROG PM/LDLS PM < 90 D [...] CDT PROCEDURE PHOTOGRAPHS 12/01/2024 10:48 AM CDT [place] ANESTHESIA BLOCK PB PLACEHOLDER CHARGE Routine 11/29/2024 8:07 AM CDT W[place] CRTJ ARVEN FSTL XCP DIR ARVEN YESSENIA [...] hypertension with ESRD (end-stage renal disease) (CMS/HCC) MICROALBUMIN/CREATININE RATI O, RANDOM UR Routine 03/29/2024 6:06 PM CDT LIPID RFLX Routine 03/29/2024 1:24 AM CDT HEMOGLOBIN A1C Routine 03/29/2024 1:24 AM CDT from Last 3 Months or Most Recently Relevant to Health Maintenance Results * (ABNORMAL) CBC WITH DIFFERENTIAL (01/24/2025 9:17 AM CDT) Only the most recent of13 resultswithin the time period is included. WBC 19.8(H) 3.8 - 10.8 Thousand/ uL [facility] RBC 2.97(L) 4.20 - 5.80 Million/u L [facility] HEMOGLOBIN 9.9(L) 13.2 - 17.1 g/dL [facility] HEMATOCRIT 32.3(L) 38.5 - 50.0 % [facility] MCV 108.8(H) 80.0 - 100.0 fL [facility] MCH 33.3(H) 27.0 - 33.0 pg [facility] MCHC 30.7(L) 32.0 - 36.0 g/dL [facility] Comment: For adults, a slight decrease in the calculated MCHC value (in the range of 30 to 32 g/dL) is most likely not clinically significant; however, it should be interpreted with caution in correlation with other red cell parameters and the patient's clinical condition. RDW 15.1(H) 11.0 - 15.0 % [facility] PLATELETS 68(L) 140 - 400 Thousand/ uL [facility] MPV 10.5 7.5 - 12.5 fL [facility] NEUTROPHIL ABSOLUTE 2,237 1,500 - 7,800 cells/uL [facility] LYMPHOCYTE ABSOLUTE 17,285(H) 850 - 3,900 cells/uL [facility] MONOCYTE ABSOLUTE 119(L) 200 - 950 cells/uL [facility] EOSINOPHIL ABSOLUTE 139 15 - 500 cells/uL [facility] BASOPHILS ABSOLUTE 20 0 - 200 cells/uL [facility] NEUTROPHIL 11.3 % [facility] LYMPHOCYTES 87.3 % [facility] MONOCYTE 0.6 % [facility] EOSINOPHILS 0.7 % [facility] BASOPHILS 0.1 % [facility] COMMENT HEMATOLOGY [facility] Comment: Review of peripheral smear confirms automated results. Many atypical lymphocytes present. Smudge cells present. Macrocytosis 1 + Polychromasia 1 + Hypochromasia 1 + Tear-drop cells 1 + Few large platelets. Test Performed at: [facility] [address] [place] [phone] Tawanda Roca MD Blood 01/24/2025 9:17 AM CDT 01/24/2025 9:18 AM CDT us Umm Dotson DO HEMATOLOGY ORDERABLES F inal Result [facility] [phone] [facility] [address] [place] [phone] * URIC ACID (01/24/2025 9:17 AM CDT) URIC ACID 5.9 4.0 - 8.0 mg/dL [facility] Comment: Therapeutic target for gout patients: <6.0 mg/dL Test Performed at: [facility] [address] [place] [address] Tawanda Roca MD Blood 01/24/2025 9:17 AM CDT 01/24/2025 9:18 AM CDT Umm Dotson DO CHEMISTRY ORDERABLES Fi nal Result Performing Organization Address City/[facility] Co de Phone Number [facility] [phone] [facility] [address] [place] [phone] * LACTATE DEHYDROGENASE (01/24/2025 9:17 AM CDT) Pathologist [facility] LD (LACTATE DEHYDROGENASE) 188 120 - 250 U/L [facility] Comment: Test Performed at: [facility] [address] [place] [phone] Tawanda Roca MD Blood 01/24/2025 9:17 AM CDT 01/24/2025 9:18 AM CDT Umm Dotson DO CHEMISTRY ORDERABLES Fi nal Result Performing Organization Address [facility] [place]/[facility] de Phone Number [facility] [phone] [facility] [address] [place] [phone] * (ABNORMAL) COMPREHENSIVE METABOLIC PANEL (01/24/2025 9:17 AM CDT) Only the most recent of7 resultswithin the time period is included. Pathologist [facility] GLUCOSE 90 65 - 99 mg/dL [facility] Comment: Fasting reference interval BUN 38(H) 7 - 25 mg/dL [facility] CREATININE 4.80(H) 0.70 - 1.22 mg/dL [facility] GFR 12(L) > OR = 60 mL/min/1.7 3m2 [facility] BUN/CREAT RATIO 8 6 - 22 (calc) [facility] SODIUM 140 135 - 146 mmol/L [facility] POTASSIUM 5.2 3.5 - 5.3 mmol/L [facility] CHLORIDE 101 98 - 110 mmol/L [facility] CO2 32 20 - 32 mmol/L [facility] CALCIUM 8.5(L) 8.6 - 10.3 mg/dL [facility] TOTAL PROTEIN 5.4(L) 6.1 - 8.1 g/dL [facility] ALBUMIN 3.7 3.6 - 5.1 g/dL [facility] GLOBULIN 1.7(L) 1.9 - 3.7 g/dL (calc) [facility] ALBUMIN/GLOBULIN RATIO 2.2 1.0 - 2.5 (calc) [facility] BILIRUBIN TOTAL 1.2 0.2 - 1.2 mg/dL [facility] ALKALINE PHOSPHATASE 97 35 - 144 U/L [facility] AST 15 10 - 35 U/L [facility] ALT 19 9 - 46 U/L [facility] Comment: Test Performed at: [facility] [address] [place] [address] Tawanda Roca MD Blood 01/24/2025 9:17 AM CDT 01/24/2025 9:18 AM CDT us Umm Dotson DO CHEMISTRY ORDERABLES Fi nal Result [facility] [phone] [facility] [address] [place] [address] * TELEMETRY REPORT (01/21/2025 2:44 AM CDT) Only the most recent of3 resultswithin the time period is included. us Provider Scanning ECG ORDERABLES Final Result * (ABNORMAL) POC GLUCOSE (01/20/2025 4:36 PM CDT) Only the most recent of46 resultswithin the time period is included. GLUCOSE POC 104(H) 74 - 99 mg/dL 01/20/2025 4:36 PM CDT [facility] SPECIMEN SOURCE, GLUCOSE POC Capillary 01/20/2025 4:36 PM CDT [facility] Blood, whole 01/20/2025 4:3 6 PM CDT 01/20/2025 5:26 PM CDT Ryan Cho MD POINT OF CARE TESTING Final Result [facility] CLIA # [id number] [address] [place] [address] * HEMODIALYSIS (01/20/2025 1:02 PM CDT) Narrative [facility] - 01/20/2025 1:02 PM CDT Jim Farooq MD 01/21/2025 11:19 AM [facility] - Procedure Note Primary Cemetery Worker: Dr. Ro [place] PROCEDURE: Intermittent Hemodialysis INDICATION: esrd Procedure: Utilizing the patient's RU arm fistula as a vascular access, the patient was initiated on hemodialysis. Dialysis is planned for 4 hours. Blood flow of 400 ml per minute and Dialysate flow of 600 ml per minute were prescribed. The bath used was 2 mEq/L potassium, 2.5 mEq/L calcium, 140 mEq/L sodium and 35 mEq/L bicarbonate. UF goal: 2 L, BP stable. Revaclear 300 hollow fiber dialyzer was used. No heparin was used for anticoagulation. No complications have been encountered to this point. I was present during dialysis, and was available for the entirety of the dialysis treatment. # Compliant with frequency and duration of dialysis: yes Physical Exam: BP 118/63 Pulse 87 Temp 97.6 F (36.4 C) Resp 22 Ht 5' 11 (1.803 m) Wt 103.7 kg (228 lb 9.9 oz) SpO2 92% BMI 31.89 kg/m NAD. RRR. Assesment and Plan: ESRD: on HD per TTS outpatient schedule. Will see on HD days while inpatient. Expected discharge today after dialysis Fabiola Puente NP [facility] 01/20/25, 1:02 PM us Ryan Cho MD DIALYSIS ORDERABLES Final Re sult [facility] CLIA # [id number] [id number] [place] [address] * (ABNORMAL) MANUAL DIFFERENTIAL (01/20/2025 6:30 AM CDT) Only the most recent of11 resultswithin the time period is included. SEGMENTED NEUTROPHILS 28(L) 36 - 66 % 01/20/2025 7:15 AM T [facility] LYMPHOCYTES RELATIVE 72(H) 24 - 44 % 01/20/2025 7:15 AM T [facility] PLATELET EST. Decreased 01/20/2025 7:15 AM CDT [facility] NEUTROPHILS ABSOLUTE COUNT 4.65 2.00 - 8.00 K/uL 01/20/2025 7:15 AM T [facility] LYMPHOCYTES ABSOLUTE 11.95(H) 1.20 - 4.00 K/uL 01/20/2025 7:15 AM CDT [facility] ATYPICAL LYMPHS ABSOLUTE 01/20/2025 7:15 AM T [facility] ANISOCYTOSIS 2+ /hpf 01/20/2025 7:15 AM [facility] POIKILOCYTES 1+ /hpf 01/20/2025 7:15 AM T [facility] MACROCYTES 1+ /hpf 01/20/2025 7:15 AM T [facility] POLYCHROMASIA 1+ /hpf 01/20/2025 7:15 AM [facility] SMUDGE CELLS Present /100 01/20/2025 7:15 AM [facility] TOTAL CELLS COUNTED IN DIFF 100 01/20/2025 7:15 AM [facility] Blood Venipuncture / Unknown 01/20/2025 6:30 AM CDT 01/20/2025 6:33 AM CDT us Stacey Fierro MD HEMATOLOGY ORDERABLES COM Final Result [facility] JANICE # [id number] [address] [facility] [place] [address] * XR CHEST PA AND LATERAL 2 VW (01/19/2025 7:01 PM CDT) Anatomical Region Laterality Modality Chest Computed Radiogr aphy 01/19/2025 7:01 PM CDT Impressions 01/19/2025 7:10 PM CDT IMPRESSION: See below. EXAMINATION: XR CHEST PA AND LATERAL 2 VW ASSOCIATED DIAGNOSIS: cardiac pacemaker;Line Placement ORDERING PROVIDER: SOTERO CAI COMPARISON: December 2024 FINDINGS/IMPRESSION: Lines, tubes, and devices: Interval placement of AICD. Retained leads from prior dual-chamber pacer are in place. Prior postsurgical changes from median sternotomy and CABG. Heart size is prominent. Low lung volumes with bronchovascular crowding, Trace effusions and bibasilar atelectasis. No pneumothorax. Narrative Procedure Note Kvng Freed MD - 01/19/2025 IMPRESSION: See below. EXAMINATION: XR CHEST PA AND LATERAL 2 VW ASSOCIATED DIAGNOSIS: cardiac pacemaker;Line Placement ORDERING PROVIDER: SOTERO CAI COMPARISON: December 2024 FINDINGS/IMPRESSION: Lines, tubes, and devices: Interval placement of AICD. Retained leads from prior dual-chamber pacer are in place. Prior postsurgical changes from median sternotomy and CABG. Heart size is prominent. Low lung volumes with bronchovascular crowding, Trace effusions and bibasilar atelectasis. No pneumothorax. us Sotero Cai MD DIAGNOSTIC IMAGING ORDERABLE S Final Result * EKG 12-LEAD (01/19/2025 5:06 PM CDT) Only the most recent of6 resultswithin the time period is included. 01/19/2025 5:06 PM CDT Narrative INTERFACE SYSTEM - 01/19/2025 8:47 PM CDT [address] [address] Test Date: 2025-01-19 Pat Name: NISA RENAE Department: 12 Room: [place] [address] Gender: Male Juvenile Officer: [id number] : 1945 Requested By: Order Number: [id number] Helen MD: Warren Sweeney Measurements Intervals [place] Rate: 85 P: 70 WV: 144 QRS: 267 QRSD: 144 T: -16 QT: 450 QTc: 535 Interpretive Statements Atrial-sensed ventricular-paced rhythm Biventricular pacemaker detected Abnormal ECG Electronically Signed On 01-19-2025 20:47:57 CDT by Warren Sweeney Procedure Note Warren Sweeney MD - 01/19/[address] [address] Test Date: 2025-01-19 Pat Name: NISA RENAE Department: 12 Room: [place] [address] Gender: Male Juvenile Officer: [id number] : 1945 Requested By: Order Number: [id number] Helen LOMAS: Warren Sweeney Measurements Intervals [place] Rate: 85 P: 70 WV: 144 QRS: 267 QRSD: 144 T: -16 QT: 450 QTc: 535 Interpretive Statements Atrial-sensed ventricular-paced rhythm Biventricular pacemaker detected Abnormal ECG Electronically Signed On 01-19-2025 20:47:57 CDT by Warren Sweeney us Sotero Cai MD ECG ORDERABLES Final Result INTERFACE SYSTEM Refer to clinic/hospital department * EKG 12-LEAD MAGNET (01/19/2025 5:05 PM CDT) 01/19/2025 5:05 PM CDT Narrative INTERFACE SYSTEM - 01/19/2025 8:47 PM CDT [address] [address] Test Date: 2025-01-19 Pat Name: NISA RENAE Department: 12 Room: [place] [address] Gender: Male Juvenile Officer: [id number] : 1945 Requested By: Order Number: [id number] Helen LOMAS: Warren Sweeney Measurements Intervals [place] Rate: 84 P: 45 WV: 140 QRS: -90 QRSD: 144 T: -21 QT: 454 QTc: 536 Interpretive Statements Atrial-sensed ventricular-paced rhythm Biventricular pacemaker detected Abnormal ECG Electronically Signed On 01-19-2025 20:47:48 CDT by Warren Sweeney Procedure Note Warren Sweeney MD - 01/19/[address] [address] Test Date: 2025-01-19 Pat Name: NISA RENAE Department: 12 Room: [place] [address] Gender: Male Juvenile Officer: [id number] : 1945 Requested By: Order Number: [id number] Helen MD: Warren Sweeney Measurements Intervals [place] Rate: 84 P: 45 WV: 140 QRS: -90 QRSD: 144 T: -21 QT: 454 QTc: 536 Interpretive Statements Atrial-sensed ventricular-paced rhythm Biventricular pacemaker detected Abnormal ECG Electronically Signed On 01-19-2025 20:47:48 CDT by Warren Sweeney us Sotero Cai MD ECG ORDERABLES Final Result INTERFACE SYSTEM Refer to clinic/hospital department * PACEMAKER UPGRADE TO BIVENTRICULAR ICD W ANESTHESIA (01/19/2025 3:44 PM CDT) Narrative [facility] - 01/20/2025 7:52 AM CDT Procedure Details [facility] Clinical Cardiac Electrophysiology Device Report Procedures: 1. CRTD Upgrade , placement of LV lead and implantation of new CRTD generator and placement of a new RV ICD lead 2. pocket revision 3. Contrast Venography 4. Device Interrogation 5. Fluoroscopy with Interpretation Procedure Description: After the patient was informed and consented in regards to the risks, benefits, and alternatives to the procedure, the patient was brought to the EP lab in a fasting, non-sedated state. Conscious sedation was administered under my supervision with fentanyl and versed. Contrast injection of the left subclavian vein was performed, which was patent . After appropriate antiseptic prep and with nuvia-operative antibiotics infusing and using local anesthesia, cutdown to the deltopectoral fascia was performed using blunt dissection and electrocautery to find the pocket. A subcutaneous pocket revised in order to filt the bigger CRTD can. Next, access was obtained via the left subclavian kisha. A sheath was passed into the subclavian vein over a wire. The RV ICD lead was placed mid septal position inferiorly.. Good current of injury was noted. Acceptable thresholds and sensing was noted. At this point the lead was sutured to the muscle. Next, access was obtained via the left subclavian kisha. A sheath was passed into the heart over a Meherrin wire. This was used to cannulate the coronary sinus. The system was then advanced into the coronary sinus and the wire was subsequently removed. A balloontipped catheter was used for contrast venography , outlining the main body of the coronary sinus and its branches. A mid lateral branch was found and the LV lead was placed in said vein. The sheath was then removed and the lead was secured with ethabond. The pocket was irrigated with antibiotic/saline solution. The pacing parameters were tested as described below. Old RV pacing lead was capped . The generator was placed in the pocket, The pocket was closed with multiple layers of absorbable suture and skin glue was applied, sterile dressing were applied. Complications: None Summary: 1. Successful MDT CRTD upgrade 2. No complications 3. EBL 10 ml Instructions : ## Xray, ekg and device interrogation to be reviewed in am #1 oral antibiotics for 5 days -prefer keflex 500 tid or doxycycline 100 bid for 5 days #2 no water in the surgical area for next 7 days, can take a scrub bath elsewhere #3 use sling for 7 days consistently in the left arm, after that mandatory during sleep and at night for 30 days, no motion of the left arm beyond 90 degrees at the shoulder. #4 follow-up in EP wound clinic in 2 weeks and EP clinic with me in 3 months. #5 cardiac rehab cx, okay to remove okay to remove dressing #6 avoid anticoagulants and all heparin products for 3 days post procedure. Sotero Cai MD CUP EP ORDERABLES Final Resu lt [facility] CLIA [id number] [address] [facility] [address] [place] [address], [place] [phone] * TRANSFUSE PLATELETS (01/19/2025 2:31 PM CDT) Sotero Cai MD BLOOD TRANSFUSION ORDERABLES Final Result * PREPARE PLATELETS (01/19/2025 2:18 PM CDT) Only the most recent of2 resultswithin the time period is included. COMPONENT TYPE [id number] [facility] COMPONENT IDENTIFICATION [id number] [facility] UNIT ABO A [facility] UN[facility] RH POS [facility] [place] COMPONENT STATUS Returned [facility] [place] COMPONENT EXPIRATION DATE/TIME [id number] [facility] [place] COMPONENT CODING SYSTEM 6200 [facility] VOLUME, BLOOD PRODUCT 311 [facility] Other, specify 01/19/2025 2: 18 PM CDT Cody Sow MD LAB TRANSFUSION ORDERABLES Harpreet emmanuel Result - Final [facility] CLIA#[id number] [address] [place] [address], [place] [phone] * [place] ANES INSERT SUPRAGLOTTIC AIRWAY (01/19/2025 1:40 PM CDT) Narrative Camilo Willams AA-C - 01/19/2025 1:40 PM CDT Camilo Willams AA-C 01/19/2025 1:58 PM Airway Date/Time: 01/19/2025 1:40 PM Location: Other MOR Non OR Location: EP Plan: elective intubation Airway: not difficult Staffing Performed: VOLUNTEER RECRUITER/CAA Authorized by: Cody Sow MD Performed by: Camilo Willams AA-C Indications and Patient Condition: Indications for Airway Management: Anesthesia Sedation Level: general anesthesia Preoxygenated: yes Patient Position: Sniffing Mask Difficulty Assessment: 1 - vent by mask Plan to extubate at end of case: Yes Final Airway Details: Final Airway Type: Supraglottic airway Final Supraglottic Airway: LMA Lubricant used: Yes LMA size: 5 Tube secured with: Tape Placement Verified by: auscultation and end tidal CO2 Number of Attempts at Approach: 1 Additional Procedure Information: atraumatic and dentition unchanged us Cody Sow MD PROCEDURE/MINOR SURGICAL ORDER RANDAL Final Result * XR CHEST PA OR AP 1 VW (01/19/2025 12:44 PM CDT) Only the most recent of2 resultswithin the time period is included. Anatomical Region Laterality Modality Chest Computed Radiogr aphy 01/19/2025 12:4 4 PM CDT Impressions 01/19/2025 1:10 PM CDT IMPRESSION: Atelectasis versus infiltrate in the left lower lung. Narrative 01/19/2025 1:10 PM CDT Exam: XR CHEST PA OR AP 1 VW Date/Time of Exam: 01/19/2025 12:44 PM Reason For Exam: Other - Please see comments Diagnosis: Pacemaker at end of battery life; Cardiac pacemaker in situ; Cardiac left ventricular ejection fraction 21-40 percent; Dilated cardiomyopathy (CMS/HCC); Chronic combined systolic and diastolic CHF (congestive heart failure) (CMS/HCC); Ischemic dilated cardiomyopathy (CMS/HCC); Ischemic dilated cardiomyopathy (CMS/HCC); Left ventricular ejection fraction of 20-34%; Combined systolic and diastolic congestive heart failure, unspecified HF chronicity (CMS/HCC) A left-sided pacemaker is noted. The heart size is normal. Consolidation is seen in the left lower lung which could represent infiltrate or atelectasis. The right lung is clear. No pneumothorax is seen. Procedure Note Kd Khoury MD - 01/19/2025 Exam: XR CHEST PA OR AP 1 VW Date/Time of Exam: 01/19/2025 12:44 PM Reason For Exam: Other - Please see comments Diagnosis: Pacemaker at end of battery life; Cardiac pacemaker in situ; Cardiac left ventricular ejection fraction 21-40 percent; Dilated cardiomyopathy (CMS/HCC); Chronic combined systolic and diastolic CHF (congestive heart failure) (CMS/HCC); Ischemic dilated cardiomyopathy (CMS/HCC); Ischemic dilated cardiomyopathy (CMS/HCC); Left ventricular ejection fraction of 20-34%; Combined systolic and diastolic congestive heart failure, unspecified HF chronicity (CMS/HCC) A left-sided pacemaker is noted. The heart size is normal. Consolidation is seen in the left lower lung which could represent infiltrate or atelectasis. The right lung is clear. No pneumothorax is seen. IMPRESSION: Atelectasis versus infiltrate in the left lower lung. Sotero Cai MD DIAGNOSTIC IMAGING ORDERABLE S Final Result * (ABNORMAL) PROTIME-INR (01/19/2025 11:53 AM CDT) Only the most recent of2 resultswithin the time period is included. PROTIME 17.4(H) 12.7 - 14.9 Seconds 01/19/2025 12:10 PM CDT [facility] INR 1.4(H) 0.8 - 1.2 01/19/2025 12:10 PM CDT [facility] Blood BLOOD SPECIMEN / Unknown Venipuncture / Unknown 01/19/2025 11:53 AM CDT 01/19/2025 11:56 AM CDT Narrative [facility] - 01/19/2025 12:10 PM CDT Expected Values for INR: DVT/PE Goal INR 2.5; range 2.0 - 3.0 Valve Replacement Tissue Goal INR 2.5; range 2.0 - 3.0 Valve Replacement Mechanical Goal INR 3.0; range 2.5 - 3.5 POST-MA Goal INR 2.5; range 2.0 - 3.0 or Goal INR 3.0; range 2.5 - 3.5 Atrial Fibrillation Goal INR 2.5; range 2.0 - 3.0 Ischemic Stroke Goal INR 2.5; range 2.0 - 3.0 us Sotero Cai MD HEMATOLOGY ORDERABLES Final Result [facility] JANICE # [id number] [address] [facility] [place] [address] * (ABNORMAL) BASIC METABOLIC PANEL (01/19/2025 11:53 AM CDT) Only the most recent of4 resultswithin the time period is included. SODIUM 133(L) 136 - 145 mmol/L 01/19/2025 12:43 PM T [facility] POTASSIUM 5.3(H) 3.5 - 5.1 mmol/L 01/19/2025 12:43 PM [facility] CHLORIDE 95(L) 98 - 107 mmol/L 01/19/2025 12:43 PM T [facility] CO2 23 22 - 29 mmol/L 01/19/2025 12:43 PM T [facility] CALCIUM 9.0 8.8 - 10.2 mg/dL 01/19/2025 12:43 PM [facility] BUN 45(H) 8 - 23 mg/dL 01/19/2025 12:43 PM [facility] CREATININE 4.11(H) 0.67 - 1.17 mg/dL 01/19/2025 12:43 PM [facility] Comment:The GFR result is no t clinically significant on patients <18 or >70 years of age. GLUCOSE 436(HH) 74 - 99 mg/dL 01/19/2025 12:43 PM [facility] GFR 14 mL/min/1. 73 sq meter 01/19/2025 12:43 PM [facility] Comment:eGFR calculated with 2020 CKD-EPI equation. Vegetarian diet, extremely high or low muscle mass, and may affect results. Cystatin C with Glomerular Filtration Rate is a suitable alternative for these patients. ANION GAP 15 9 - 20 mmol/L 01/19/2025 12:43 PM [facility] Blood BLOOD SPECIMEN / Unknown Venipuncture / Unknown 01/19/2025 11:53 AM CDT 01/19/2025 11:56 AM CDT Sotero Cai MD CHEMISTRY ORDERABLES Final R esult Performing Organization Address [facility] [place]/State/ZIP Co de Phone Number [facility] CLIA # [id number] [id number] [place] [address] * [place] REM INTERROG PM/LDLS PM <90 D PHYS/QHP, [place] REM INTERROG PM/LDLS PM/IDS <90 D TECH REVIEW (01/10/2025 7:41 AM CDT) 01/10/2025 7:41 AM CDT Narrative INTERFACE SYSTEM - 01/10/2025 9:18 AM CDT Remote Transmission Report Date of Procedure: January 10, 2025 Events: 0 recorded episodes. GENA/METAL FABRICATING SUPERVISOR triggered on 12-03-2024. Reviewed with family and they are aware Dr. Cai's team will be calling to schedule the gen change. Comments: remote transmission reveals normal dual chamber pacemaker (programmed VVI 65 due to GENA/METAL FABRICATING SUPERVISOR status) function with stable available threshold and impedance trends. Presenting EGM indicates Ventricular Pacing, . Follow-up 3 week wound check post pending gen change. See attached report for details. Procedure Note Provider, Historical - 01/10/2025 Remote Transmission Report Date of Procedure: January 10, 2025 Events: 0 recorded episodes. GENA/METAL FABRICATING SUPERVISOR triggered on 12-03-2024. Reviewedwith family and they are aware Dr. Cai's team will be calling toschedule the gen change. Comments: remote transmission reveals normal dual chamber pacemaker (programmedVVI 65 due to GENA/METAL FABRICATING SUPERVISOR status) function with stable available threshold andimpedance trends. Presenting EGM indicates Ventricular Pacing, . Follow-up 3 week wound check post pending gen change. See attached report for details. Sotero Cai MD CARDIAC SERVICES ORDERABLES Edited Result - Final INTERFACE SYSTEM Refer to clinic/hospital department * HEMODIALYSIS (12/11/2024 12:00 PM CDT) Narrative [facility] - 12/11/2024 12:00 PM CDT Jim Farooq MD 12/11/2024 12:22 PM [facility] - Procedure Note Primary Cemetery Worker: Dr. Ro West PROCEDURE: Intermittent Hemodialysis INDICATION: [...] stores adequate tsat 29% Addy Jacobs NP [facility] 12/11/24, 12:00 PM us Dustin Michel ANP DIALYSIS ORDERABLES Final Res ult [facility] CLIA # [id number] [address] [place] [address] * (ABNORMAL) RENAL FUNCTION PANEL (12/11/2024 8:58 AM CDT) SODIUM 134(L) 136 - 145 mmol/L 12/11/2024 9:55 AM [facility] POTASSIUM 4.2 3.5 - 5.1 mmol/L 12/11/2024 9:55 AM [facility] CHLORIDE 96(L) 98 - 107 mmol/L 12/11/2024 9:55 AM [facility] CO2 22 22 - 29 mmol/L 12/11/2024 9:55 AM [facility] CALCIUM 8.2(L) 8.8 - 10.2 mg/dL 12/11/2024 9:55 AM [facility] BUN 59(H) 8 - 23 mg/dL 12/11/2024 9:55 AM [facility] CREATININE 5.39(H) 0.67 - 1.17 mg/dL 12/11/2024 9:55 AM [facility] Comment:The GFR result is no t clinically significant on patients <18 or >70 years of age. GLUCOSE 196(H) 74 - 99 mg/dL 12/11/2024 9:55 AM [facility] ALBUMIN 3.8 3.5 - 5.2 g/dL 12/11/2024 9:55 AM [facility] PHOSPHORUS 6.0(H) 2.5 - 4.5 mg/dL 12/11/2024 9:55 AM [facility] GFR 10 mL/min/1. 73 sq meter 12/11/2024 9:55 AM [facility] Comment:eGFR calculated with 2020 CKD-EPI equation. Vegetarian diet, extremely high or low muscle mass, and may affect results. Cystatin C with Glomerular Filtration Rate is a suitable alternative for these patients. ANION GAP 16 9 - 20 mmol/L 12/11/2024 9:55 AM [facility] Blood Venipuncture / Unknown 12/11/2024 8:58 AM CDT 12/11/2024 9:25 AM CDT us Ro West MD CHEMISTRY ORDERABLES Final Result Performing Organization Address [facility] [place] Co de Phone Number [facility] CLIA # [id number] [address] [address] * (ABNORMAL) HEMOGLOBIN AND HEMATOCRIT (12/10/2024 8:11 PM CDT) [facility] HEMOGLOBIN 7.6(L) 14.0 - 18.0 g/dL 12/10/2024 8:49 PM CDT [facility] HEMATOCRIT 25.0(L) 41.0 - 53.0 % 12/10/2024 8:49 PM CDT [facility] Blood Venipuncture / Unknown 12/10/2024 8:11 PM CDT 12/10/2024 8:32 PM CDT us Jazmin Lema MD HEMATOLOGY ORDERABLES Final Result Performing Organization Address [facility] [place] Co de Phone Number [facility] CLIA # [id number] [address] [address] * UPPER ENDOSCOPY REPORT (12/10/2024 11:09 AM CDT) Narrative Procedure Note Clinton Ascencio DO - 12/10/2024 11:09 AM CDT [facility] GI Patient Name: Nisa Renae Procedure Date: [...] Withdrawal Time Scope In: Scope Out: [address] [place], [place] Clinton Ascencio DO GI PROCEDURE ORDERABLES Final Result * PATHOLOGY (12/10/2024 11:00 AM CDT) CASE REPORT Surgical Pathology Report Case: [id number] Authorizing Provider: Clinton Ascencio DO Collected: 12/10/2024 11:00 AM Ordering Location: [facility] Received: 12/10/2024 03:55 PM Endoscopy Pathologist: Izaiah Sandoval MD Specimen: Stomach, ulcers 11:19 AM CDT [facility] FINAL DIAGNOSIS A. 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 pylori by immunohistochemistry REV: GERMAIN Sandoval MD [id number] 5 11:19 AM [facility] at 1119 CDT DIAGNOSIS COMMENT The patient's clinical history of CLL/SLL is noted. It is unclear if the fragment of ulcer bed is from the stomach or possibly a contaminant. Clinical and endoscopic correlation is recommended. 5 11:19 AM [facility] GROSS DESCRIPTION A. Received in formalin labeled Renae -stomach ulcers are two fragments of tissue up to 0.4 cm. The specimen is submitted in toto in A1. Elif Shine 5 11:19 AM [facility] MICROSCOPIC DESCRIPTION After review of H&E stained [...] highlight polytypic plasma cells. 5 11:19 AM [facility] OPERATIVE PROCEDURE 1: ESOPHAGOGASTRODUODENOSCO PY 5 11:19 AM [facility] CLINICAL INFORMATION A Bxs of gastric ulcers Bxs of gastric ulcers 5 11:19 AM [facility] COMMENT The [employer] voice-activated dictation system may have been used [...] the Diagnostic Immunohistochemistry Laboratory of [facility] in compliance with CLIA'88 regulations. Some of these tests rely on the use of analyte specific reagents and are subject to specific labeling requirements by the FDA. All controls show appropriate reactivity. This testing was developed by the Diagnostic Immunohistochemistry Laboratory of [facility]. It has not been cleared or approved by the FDA. The FDA has determined that such clearance or approval is not necessary. 11:19 AM CDT [facility] Tissue ENTIRE STOMACH / Unknown Collection / Unknown 12/10/2024 11:00 AM CDT 12/10/2024 3:55 PM CDT Comment:Bxs of gastric ulcer s Clinton Ascencio DO PATHOLOGY/CYTOLOGY MORGAN HUBBARD Final Result Performing Organization Address [facility] Co de Phone Number [facility] CLIA # [id number] [facility] [address] * (ABNORMAL) OCCULT BLOOD GUAIAC DIAGNOSTIC (12/08/2024 11:32 AM CDT) OCCULT BLOOD, STOOL Positive( A) Negative 12/08/2024 5:38 PM CDT [facility] Stool STOOL SPECIMEN / Unknown Collection / Unknown 12/08/2024 11:32 AM CDT 12/08/2024 5:28 PM CDT us Jazmin Lmea MD BODY FLUIDS AND STOOLS Final Result Performing Organization Address [facility] Co de Phone Number [facility] CLIA # [id number] [address] [address] * (ABNORMAL) IRON, TIBC, AND PERCENT SATURATION (12/08/2024 4:23 AM CDT) IRON 55(L) 59 - 158 ug/dL 12/09/2024 4:39 PM CDT [facility] TIBC 187(L) 250 - 450 ug/dL 12/09/2024 4:39 PM CDT [facility] IRON % SATURATION 29 15 - 60 % 12/09/2024 4:39 PM CDT [facility] Blood Venipuncture / Unknown 12/08/2024 4:23 AM CDT 12/08/2024 4:33 AM CDT Umm Sugey Dotson DO CHEMISTRY ORDERABLES Fi nal Result Performing Organization Address [facility] [place] Co de Phone Number [facility] CLIA # [id number] [address] [address] [place] [address] * (ABNORMAL) FERRITIN (12/08/2024 4:23 AM CDT) FERRITIN 917.2(H) 30.0 - 400.0 ng/mL 12/09/2024 4:38 PM CDT [facility] Blood Venipuncture / Unknown 12/08/2024 4:23 AM CDT 12/08/2024 4:33 AM CDT Umm Sugey Dotson DO CHEMISTRY ORDERABLES Fi nal Result Performing Organization Address [facility] de Phone Number [facility] CLIA # [id number] [address] [address] * UNFRACTIONATED HEPARIN MONITORING (12/07/2024 6:58 AM CDT) Only the most recent of9 resultswithin the time period is included. ANTI-XA UNFRAC HEP 0.41 See Interpretation IU/mL 12/07/2024 7:19 AM CDT [facility] Blood Venipuncture / Unknown 12/07/2024 6:58 AM CDT 12/07/2024 7:02 AM CDT Narrative [facility] - 12/07/2024 7:19 AM CDT Therapeutic Range: PT/DVT Heparin Protocol 0.3 - 0.7 IU/ml Cardiac Heparin Protocol 0.3 - 0.6 IU/ml The reference range for this test is specific to the anticoagulant and is not appropriate for monitoring patients on a DOAC protocol. Jazmin Lema MD HEMATOLOGY ORDERABLES Final Result Performing Organization Address [facility] de Phone Number [facility] CLIA # [id number] [address] [place] [address] * LACTIC ACID (12/06/2024 1:48 PM CDT) Only the most recent of3 resultswithin the time period is included. LACTIC ACID 2.0 <=2.0 mmol/L 12/06/2024 2:15 PM CDT [facility] Blood Venipuncture / Unknown 12/06/2024 1:48 PM CDT 12/06/2024 1:51 PM CDT Dustin Michel ANP CHEMISTRY ORDERABLES Final Re sult Performing Organization Address [facility] de Phone Number [facility] CLIA # [id number] [address] [address] * LIPASE (12/06/2024 4:51 AM CDT) LIPASE 14 13 - 60 U/L 12/06/2024 1:17 PM CDT [facility] Blood Venipuncture / Unknown 12/06/2024 4:51 AM CDT 12/06/2024 4:59 AM CDT Dustin Michel ANP CHEMISTRY ORDERABLES Final Re sult Performing Organization Address [facility] de Phone Number [facility] # [id number] [address] [facility] [place] [address] * XR ABDOMEN FOR FEEDING TUBE 1 [...] * URINE CULTURE (12/05/2024 10:28 AM CDT) [facility] CULTURE No growth 12/06/2024 9:43 AM CDT [facility] Urine URINE SPECIMEN OBTAINED BY CLEAN CATCH PROCEDURE / Unknown Collection / Unknown 12/05/2024 10:28 AM CDT 12/05/2024 10:32 AM CDT Walt Aguero MD MICROBIOLOGY - GENERAL ORDERABLES Final Result [facility] CLIA # [id number] [address] [place] [address] [place], [place] [id number] * (ABNORMAL) BASIC METABOLIC PANEL PLUS (ADD ON CMP TO BMP) (12/05/2024 8:54 AM CDT) [facility] TOTAL PROTEIN 6.0(L) 6.4 - 8.3 g/dL 12/05/2024 3:17 PM CDT [facility] ALBUMIN 3.8 3.5 - 5.2 g/dL 12/05/2024 3:17 PM CDT [facility] BILIRUBIN TOTAL 0.8 0.0 - 1.0 mg/dL 12/05/2024 3:17 PM CDT [facility] ALKALINE PHOSPHATASE 76 40 - 129 U/L 12/05/2024 3:17 PM CDT [facility] AST 60(H) 10 - 50 U/L 12/05/2024 3:17 PM CDT [facility] ALT 120(H) <=50 U/L 12/05/2024 3:17 PM CDT [facility] Blood Venipuncture / Unknown 12/05/2024 8:54 AM CDT 12/05/2024 9:11 AM CDT Dustin Michel ANP CHEMISTRY ORDERABLES Final Re sult Performing Organization Address [facility] [place] de Phone Number [facility] CLIA # [id number] [address] [address] [place] [address] * (ABNORMAL) TROPONIN (12/05/2024 8:54 AM CDT) Only the most recent of2 resultswithin the time period is included. TROPONIN T, 5TH GEN 3,843(HH) <=15 ng/L 12/05/2024 9:53 AM CDT [facility] Blood Venipuncture / Unknown 12/05/2024 8:54 AM CDT 12/05/2024 9:11 AM CDT Narrative [facility] - 12/05/2024 9:53 AM CDT Troponin elevated. Dustin Michel ANP CHEMISTRY ORDERABLES Final Re sult Performing Organization Address City/[facility]/ZIP Co de Phone Number [facility] CLIA # [id number] [address] [place] [address] * (ABNORMAL) CBC WITHOUT DIFFERENTIAL (12/04/2024 9:11 PM CDT) Pathologist [facility] WBC 22.6(H) 4.8 - 10.8 K/uL 12/04/2024 9:18 PM CDT [facility] RBC 3.39(L) 4.60 - 6.20 M/uL 12/04/2024 9:18 PM CDT [facility] HEMOGLOBIN 10.6(L) 14.0 - 18.0 g/dL 12/04/2024 9:18 PM CDT [facility] HEMATOCRIT 34.3(L) 41.0 - 53.0 % 12/04/2024 9:18 PM CDT [facility] MCV 101.2 84.0 - 103.0 fL 12/04/2024 9:18 PM CDT [facility] MCH 31.3 27.0 - 34.0 pg 12/04/2024 9:18 PM CDT [facility] MCHC 30.9 30.0 - 35.0 g/dL 12/04/2024 9:18 PM CDT [facility] PLATELETS 97(L) 140 - 440 K/uL 12/04/2024 9:18 PM CDT [facility] MPV 10.5 8.9 - 12.8 fL 12/04/2024 9:18 PM CDT [facility] RDW 18.4(H) 11.0 - 14.5 % 12/04/2024 9:18 PM CDT [facility] RDW-STDEV 69.1(H) 37.0 - 54.0 fL 12/04/2024 9:18 PM CDT [facility] Blood Venipuncture / Unknown 12/04/2024 9:11 PM CDT 12/04/2024 9:15 PM CDT us Tigist RUSSELL HEMATOLOGY ORDERABLES Final Res ult [facility] CLIA # [id number] [address] [facility] [place] [address] * ECHOCARDIOGRAM W/ CONTRAST AGENT (12/04/2024 10:45 AM CDT) EJECTION FRACTION 26 INTERFACE SYSTEM 12/04/2024 8:57 AM CDT Narrative INTERFACE SYSTEM - 12/04/2024 11:13 AM CDT [facility] Cardiovascular Services Echocardiography Laboratory [address] [place] [address] Transthoracic Echocardiography Patient: Nisa Renae Study ID: ECHO COMPLETE - Gender: M : 1945 Age: 79 Room: [facility] Study Date: 12/04/2024 Pt Status: Inpatient Study Time: 08:57:28 AM CSN #: [id number] Ordering:Tigist Dodson Barnworker Groom: Gagandeep Nava [facility] Indications and [...] values outside specified reference range. [facility] Echo Labs are accredited with the Intersocietal Accreditation Commission - Echocardiography. Prepared and Electronically Authenticated Conrado Shearer Confirmed 12/04/2024 11:13 Procedure Note Conrado Shearer MD - 12/04/2024 [facility] Services Echocardiography Laboratory [address] [place] [address] Transthoracic Echocardiography Patient: Nisa Renae Study ID: ECHO COMPLETE- Gender: M : 1945 Age: 79 Room: [facility] Study Date: 12/04/2024 Pt Status: Inpatient Study Time: 08:57:28 AM [facility] #: [id number] Ordering:Tigist Dodson Barnworker Groom: Gagandeep Nava [facility] Indications and [...] values outside specified reference range. [facility] Echo Labs are accredited with theSage Memorial Hospitalsocietal Accreditation Commission - Echocardiography. Prepared and Electronically Authenticated Conrado Shearer Confirmed 12/04/2024 11:13 Tigist RUSSELL US ORDERABLES Final Result Performing Organization Address [facility] de Phone Number INTERFACE SYSTEM Refer to clinic/hospital department * MRSA PCR RAPID SCREEN (12/04/2024 8:29 AM CDT) [facility] MRSA PCR RESULT MRSA not detected MRSA not detected 12/04/2024 10:09 AM CDT [facility] Surveillance ANTERIOR NARES SWAB / Unknown Collection / Unknown 12/04/2024 8:29 AM CDT 12/04/2024 8:43 AM CDT Narrative [facility] - 12/04/2024 10:09 AM CDT This [...] ORDERABL ES Final Result Performing Organization Address [facility] [place]/[facility]/ZIP Co de Phone Number [facility] CLIA # [id number] [address] [place] [address] * (ABNORMAL) URINALYSIS WITH REFLEX MICROSCOPIC (12/04/2024 8:28 AM CDT) COLOR UA Yellow Pale to Dark Yellow 12/04/2024 8:52 AM T [facility] CLARITY UA Cloudy(A) Clear 12/04/2024 8:52 AM T [facility] SPECIFIC GRAVITY UA 1.039(H) 1.003 - 1.035 12/04/2024 8:52 AM [facility] PH UA 6.0 5.0 - 8.0 12/04/2024 8:52 AM [facility] LEUKOCYTE ESTERASE UA 3+(A) Negative 12/04/2024 8:52 AM [facility] NITRITE UA Negative Negative 12/04/2024 8:52 AM [facility] PROTEIN UA 3+(A) Negative 12/04/2024 8:52 AM [facility] GLUCOSE UA 1+(A) Negative 12/04/2024 8:52 AM [facility] KETONES UA 1+(A) Negative 12/04/2024 8:52 AM [facility] UROBILINOGEN UA <2.0 <2.0 mg/dL 8:52 AM [facility] BILIRUBIN UA Negative Negative 12/04/2024 8:52 AM [facility] BLOOD UA 3+(A) Negative 12/04/2024 8:52 AM [facility] WBC UA >100(A) 0 - 2 /hpf 12/04/2024 8:52 AM [facility] RBC UA 51-100(A) 0 - 2 /hpf 12/04/2024 8:52 AM T [facility] BACTERIA UA 2+(A) Negative /hpf 12/04/2024 8:52 AM [facility] EPITHELIAL CELLS, URINE 0-5 0 - 5 /hpf 12/04/2024 8:52 AM CDT [facility] Urine URINE SPECIMEN OBTAINED BY CLEAN CATCH PROCEDURE / Unknown Collection / Unknown 12/04/2024 8:28 AM CDT 12/04/2024 8:44 AM CDT Tigist RUSSELL URINE ORDERABLES Final Result Performing Organization Address [facility] [place]/ZIP Co de Phone Number [facility] CLIA # [id number] [id number] [place], [place] [address] * (ABNORMAL) TROPONIN 6 HR, 5TH GEN (12/04/2024 7:50 AM CDT) TROPONIN T, 6 HR 5TH GEN 3,956(HH) <=15 ng/L 12/04/2024 9:04 AM CDT [facility] DELTA 6HR TROPONIN T % -10 See Interp. % 12/04/2024 9:04 AM CDT [facility] Blood Venipuncture / Unknown 12/04/2024 7:50 AM CDT 12/04/2024 8:23 AM CDT Narrative [facility] - 12/04/2024 9:04 AM CDT Troponin elevated. Delta not changing. Tigist RUSSELL CHEMISTRY ORDERABLES Final Resu lt Performing Organization Address [facility] Co de Phone Number [facility] CLIA # [id number] [address] [address] * BLOOD CULTURE (12/04/2024 7:50 AM CDT) Only the most recent of2 resultswithin the time period is included. BLOOD CULTURE No growth 12/09/2024 9:31 AM CDT [facility] Blood (Peripheral) Venipuncture / Unknown 12/04/2024 7:50 AM CDT 12/04/2024 8:20 AM CDT Tigist RUSSELL MICROBIOLOGY - GENERAL ORDERABL ES Final Result Performing Organization Address [facility] [place] Co de Phone Number [facility] CLIA # [id number] [address] [address] * (ABNORMAL) TROPONIN 2 HR, 5TH GEN (12/04/2024 3:33 AM CDT) TROPONIN T, 2 HR 5TH GEN 4,870(HH) <=15 ng/L 12/04/2024 4:55 AM CDT [facility] DELTA 2HR TROPONIN T % 10 See Interp. % 12/04/2024 4:55 AM CDT [facility] Blood Venipuncture / Unknown 12/04/2024 3:33 AM CDT 12/04/2024 3:37 AM CDT Narrative [facility] - 12/04/2024 4:55 AM CDT Troponin elevated. Delta not changing. Tigist RUSSELL CHEMISTRY ORDERABLES Final Resu lt Performing Organization Address [facility] de Phone Number [facility] CLIA # [id number] [address] [address] * (ABNORMAL) TROPONIN BASELINE, 5TH GEN (12/04/2024 1:57 AM CDT) TROPONIN T, BASELINE 5TH GEN 4,417(HH) <=15 ng/L 12/04/2024 3:01 AM CDT [facility] Blood Venipuncture / Unknown 12/04/2024 1:57 AM CDT 12/04/2024 2:00 AM CDT Narrative [facility] - 12/04/2024 3:01 AM CDT Troponin elevated. Tigist RUSSELL CHEMISTRY ORDERABLES Final Resu lt [facility] CLIA # [id number] [address] [facility] [place] [address] * (ABNORMAL) PROCALCITONIN (12/04/2024 1:57 AM CDT) PROCALCITONIN 55.40(H) <=0.08 ng/mL 12/04/2024 2:53 AM CDT [facility] Blood Venipuncture / Unknown 12/04/2024 1:57 AM CDT 12/04/2024 2:[address] [facility] - 12/04/2024 2:53 AM CDT The utility [...] ORDERABLES Final Resu lt Performing Organization Address [facility] de Phone Number [facility] CLIA # [id number] [address] [address] * VANCOMYCIN LEVEL RANDOM (12/04/2024 1:57 AM CDT) VANCOMYCIN, RANDOM 19.7 5.0 - 50.0 ug/mL 12/04/2024 6:19 AM CDT [facility] Blood Venipuncture / Unknown 12/04/2024 1:57 AM CDT 12/04/2024 2:00 AM CDT Narrative [facility] - 12/04/2024 6:19 AM CDT Vancomycin Therapeutic Ranges: Vancomycin Trough: 10 - 20 mcg/mL Vancomycin Peak: 25 - 50 mcg/mL Jim Asif MD CHEMISTRY ORDERABL ES Final Result Performing Organization Address [facility] Co de Phone Number [facility] CLIA # [id number] [facility] [address] * PROCEDURE PHOTOGRAPHS (12/01/2024 10:48 AM CDT) us Provider Scanning PROCEDURE/MINOR SURGICAL ORDER RANDAL Final Result * [place] ANESTHESIA BLOCK PB PLACEHOLDER CHARGE (11/29/2024 8:07 [...] Type: Interscalene Laterality: Left Injection technique: Single-shot [place] Identification: ultrasound guided Local injected: Lidocaine 2% [...] GROUP O 11/29/2024 7:18 AM CDT [facility] RH (D) TYPE Positive 11/29/2024 7:18 AM CDT [facility] Blood Venipuncture / Unknown 11/29/2024 6:48 AM CDT 11/29/2024 6:54 AM CDT Klarissa Flowers MD BLOOD BANK ORDERABLES Final Re sult [facility] CLIA#[id number] [address] [place] [address], * TYPE AND SCREEN (11/29/2024 6:47 AM CDT) ABO GROUP O 11/29/2024 7:48 AM CDT [facility] RH (D) TYPE Positive 11/29/2024 7:48 AM CDT [facility] ANTIBODY SCREEN Negative 11/29/2024 7:48 AM CDT [facility] Blood Venipuncture / Unknown 11/29/2024 6:47 AM CDT 11/29/2024 6:50 AM CDT us Klarissa Flowers MD BLOOD BANK ORDERABLES Edited R esult - Final [facility] CLIA#[id number] [address] [place] [address], * US DUPLEX PREOP VESS ASSESS LT (11/12/2024 11:13 AM CDT) Anatomical Region Laterality Modality Lower Extremity, Upper Extremity Ultrasound 11/12/2024 10:2 4 AM CDT Narrative 11/15/2024 11:17 AM CDT 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 [...] evaluation was performed. Image quality was good. [facility] is accredited with the Intersocietal Commission for the Accreditation of Vascular Laboratories (ICAVL) Prepared and Electronically Authenticated Janell Melgar Confirmed 11/15/2024 11:17 Procedure Note Janell Melgar DO - 11/15/2024 [facility] [address] Noninvasive Vascular Lab Upper Extremity Evaluation for Hemodialysis Access Patient: Nisa Renae Study ID: US DUPLEX PREOP Gender: M : 1945 Age: 79 Room: Height: 180cm Weight: 104.3kg BSA: 2.31m^2 Pt status: Outpatient Study Date: 11/12/2024 Study Time: 10:24:48 AM BSA: 2.31m^2 Ordering: Klarissa Flowers MD Interpreting:Janell Melgar Barnworker Groom: Melissa PACKT Indications: Dx: Benign hypertension with ESRD (end-stage renaldisease) ([facility]) [I12.0, N18.6 (ICD-10-CM)] Summary Impression: 1. [...] evaluation was performed. Image quality was good. [facility] is accredited withthe Intersocietal Commission for the Accreditation of Vascular Laboratories (ICAVL) Prepared and Electronically Authenticated Janell Melgar Confirmed 11/15/2024 11:17 us Klarissa Flowers MD US ORDERABLES Final Result * (ABNORMAL) MICROALBUMIN/CREATININE RATIO, RANDOM UR (03/29/2024 6:06 PM CDT) Creatinine, Urine 140 20 - 320 mg/dL 03/31/2024 2:38 PM CDT [facility] MICROALBUMIN, URINE 228.5 See Note: mg/dL 03/31/2024 2:38 PM CDT [facility] Comment: Reference Range: Reference Range Not established Verified by repeat analysis. MICROALBUMIN/CREAT RATIO, UR 1632(H) <30 mg/g creat 03/31/2024 2:38 PM CDT [facility] Comment: The ADA defines abnormalities in albumin [...] PM CDT Performing Organization Information: Site ID: [place] Name: [employer] Address: [address] [address] [place] [address] Director: Tawanda Roca MD us Jillian Monge MD URINE ORDERABLES Final Result [facility] [place] LIPID RFLX (03/29/2024 1:24 AM CDT) CHOLESTEROL 134 <200 mg/dL 03/29/2024 3:43 AM CDT [facility] TRIGLYCERIDE 70 <150 mg/dL 03/29/2024 3:43 AM CDT [facility] HDL 51 40 - 59 mg/dL 03/29/2024 3:43 AM CDT [facility] LDL CALCULATED 69 <100 mg/dL 03/29/2024 3:43 AM CDT [facility] NON-HDL CHOLESTEROL 83 <130 mg/dL 03/29/2024 3:43 AM CDT [facility] Blood Venipuncture / Unknown 03/29/2024 1:24 AM CDT 03/29/2024 1:[address] [facility] - 03/29/2024 3:43 AM CDT TOTAL CHOLESTEROL [...] Yuan MD CHEMISTRY ORDERABLES Final R esult [facility] CLIA # [id number] [address] [place] [address] * (ABNORMAL) HEMOGLOBIN A1C (03/29/2024 1:24 AM CDT) HEMOGLOBIN A1C 7.1(H) <=5.6 % 03/29/2024 12:00 PM T [facility] EST. AVG GLUCOSE, A1C 157 mg/dL 03/29/2024 12:00 PM CDT [facility] Blood Venipuncture / Unknown 03/29/2024 1:24 AM CDT 03/29/2024 1:51 AM CDT Narrative [facility] - 03/29/2024 12:00 PM CDT HGB A1C INTERPRETATION NORMAL: <5.7% PRE-DIABETES: 5.7 - 6.4% DIABETES: 6.5% OR GREATER us Jaciel Yuan MD CHEMISTRY ORDERABLES Final R esult [facility] CLIA # [id number] [address] from Last 3 Months or Most Recently Relevant to Health Maintenance Insurance MEDICARE PART A AND B [facility] RX GAN PLANS (INTERNAL) [facility] RX [facility] [employer] RX GENERIC COMMERCIAL Commercial * Guarantor: [facility] (C) Account Type Relation to Patient Date of Phone Billing Address Corporate Other DEFAULT ADDRESS [address] [place] * Guarantor: [facility] H (C) Account Type Relation to Patient Date of Phone Billing Address Corporate Other DEFAULT ADDRESS [address] [place] Advance Directives For more information, please contact: [phone] * Full Code (Latest Code Status on File) Date Activated Date Inactivated Comments 01/19/2025 4:46 PM 01/20/2025 8:51 PM * Full Code Date Activated Date Inactivated Comments 01/19/2025 2:17 PM 01/19/2025 4:46 PM * Full Code Date Activated Date Inactivated Comments 01/19/2025 1:22 PM 01/19/2025 2:17 PM * Full Code Date Activated Date Inactivated Comments 01/19/2025 11:23 AM 01/19/2025 1:21 PM * NO CPR (In Event of Cardiopulmonary Arrest) Date Activated Date Inactivated Comments 12/04/2024 1:15 AM 12/12/2024 3:52 AM Question Answer Comments Mechanical Ventilation (for respiratory distress) - Invasive (i.e. intubation): No Mechanical Ventilation (for respiratory distress) - Non-Invasive (i.e. BiPAP, CPAP): Yes Care Teams Cloth Weigher Relationship Specialty Start Date End Date Paula Sandoval MD [address] [place] [address] PCP - General Family Practice 10/18/24
--- OUTSIDE RECORDS SUMMARY | 2025-02-02 18:08 | XMS_ITS | Encounter Summary ---
Author Organization [facility], [facility] Address [address] [place] [address] Phone Care Team Providers Care Team Psychologist Name Role Phone Alejandro Macias MD Primary Care Provider + [phone] Encounter Details Date Type Department Care Team (Late st Contact Info) Description 03/17/2019 Orders Only [facility], [facility] [address] [place] [address] Shine Mcgraw MD [address] [place] [address] Chronic kidney disease stage 4 [...] / CREATININE RATIO Routine 04/28/2019 9:27 AM ENVIRONMENTAL PERMITTING SPECIALIST Chronic kidney disease stage 4 (HCC) PTH, INTACT Routine 04/28/2019 9:27 AM ENVIRONMENTAL PERMITTING SPECIALIST Chronic kidney disease stage 4 (HCC) RENAL FUNCTION PANEL Routine 04/28/2019 9:27 AM ENVIRONMENTAL PERMITTING SPECIALIST Chronic kidney disease stage 4 (HCC) documented in this encounter Results * PTH, intact (04/28/2019 9:27 AM ENVIRONMENTAL PERMITTING SPECIALIST) Parathyroid Hormone, Intact 41 pg/mL Blood specimen (specimen) 04/28/2019 9:27 AM ENVIRONMENTAL PERMITTING SPECIALIST Tiburcio Colmenares MA - 05/03/2019 12:43 PM ENVIRONMENTAL PERMITTING SPECIALIST .mello garcia Shine Mcgraw MD LAB BLOOD ORDERABLES Fi nal Result * Urine albumin / creatinine ratio (04/28/2019 9:27 AM ENVIRONMENTAL PERMITTING SPECIALIST) Creatinine, Urine 80 mg/dL Albumin, Urine 17.1 mg/dL Alb/Creat Ratio, Ur 214.00 mcg/mg Urine specimen (specimen) 04/28/2019 9:27 AM ENVIRONMENTAL PERMITTING SPECIALIST Tiburcio Colmenares MA - 05/03/2019 12:42 PM ENVIRONMENTAL PERMITTING SPECIALIST .robert garcia Shine Mcgraw MD LAB URINE ORDERABLES Fi nal Result * (ABNORMAL) Renal function panel (04/28/2019 9:27 AM ENVIRONMENTAL PERMITTING SPECIALIST) Albumin 4.4 3.5 - 5.0 g/dL BUN [...] 147 Blood specimen (specimen) 04/28/2019 9:27 AM ENVIRONMENTAL PERMITTING SPECIALIST Tiburcio Colmenares MA - 05/03/2019 12:44 PM ENVIRONMENTAL PERMITTING SPECIALIST .mello garcia Shine Mcgraw MD LAB BLOOD ORDERABLES Fi nal Result documented in this encounter Visit Diagnoses Diagnosis Chronic kidney disease stage 4 (HCC) documented in this encounter Care Teams Team Psychologist Relationship Specialty Start Date End Date Alejandro Macias MD [address] [place] [address] PCP - General Family Medicine 12/15/18 documented as of this encounter
--- OUTSIDE RECORDS SUMMARY | 2025-02-02 18:08 | XMS_ITS | Encounter Summary ---
Author Organization [facility], [facility] Address [address] [place] [address] Phone Care Team Providers Care [employer] English Teacher Name Role Phone Alejandro Macias MD Primary Care Provider + [phone] Encounter Details Date Type Department Care Team (Late st Contact Info) Description 01/22/2025 Orders Only [facility] [address] [place] [address] Ro West MD [address] [place] [address] Social History Tobacco Use Types [...] Priority Date/Time Associated Diagnosis Comments HEMATOLOGY Routine 01/22/2025 documented in this encounter Results * (ABNORMAL) HEMATOLOGY (01/22/2025) Hemoglobin 9.9(L) 14.0 - 18.0 g/dL [facility] Hemoglobin x 3 29.7(L) 42.0 - 54.0 % [facility] 01/22/2025 01/25/2025 11: 20 AM CDT Narrative [facility] - 01/25/2025 Unless otherwise specified, test(s) performed at: [facility], [address] [place] [address] STRAW HAT PLUNGER OPERATOR: Fab French M.D. For any questions, please call customer service at FREQUENCY:OTHER Resulting Agency Comment Specimen source: Blood us Ro West MD LAB BLOOD ORDERABLES Final Re sult [facility] See order comments or contact performing lab Unknown, [place] documented in this encounter Visit Diagnoses Not on filedocumented in this encounter Care Teams [employer] English Teacher Relationship Specialty Start Date End Date Alejandro Macias MD [address] [place] [id number] PCP - General Family Medicine 12/15/18 documented as of this encounter
--- OUTSIDE RECORDS SUMMARY | 2025-02-02 18:08 | XMS_ITS ---
Author Name [facility] Address [address] [place] [address] Phone [phone] Organization [facility] e, NA DOCUMENT DISCLAIMER Multiple document versions may exist, please be sure you review the latest version. The information in the [facility] [place] Continuity of Care Document represents a summary of certain health and medical information. It may not contain the complete medical history for the patient and should be independently verified. The represented time in the document is Eastern Time. 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 [...] not having achieved remission C91.10 April 06 ALLERGIES AND ADVERSE REACTIONS Substance Reaction Severity [...] Epoetin Sarath (Epogen) During Dialysis, 3X Week 9000 units Intravenous - push February 01, 2025 January 31, 2026 Active Heparin Sodium (Porcine) 1,000 Units/mL Systemic Bolus, Every Treatment, Total treatment minutes 240 5000 units Intravenous - push May 22, 2024 May 21, 2025 Active Iron Sucrose (Venofer) During Dialysis, 3X Week 100 mg Intravenous - push January 04, 2025 January 25, 2025 Active Iron Sucrose (Venofer) During Dialysis, 3X Week 100 mg Intravenous - push January 27, 2025 February 17, 2025 Active Ondansetron HCl (Zofran) During Dialysis, PRN-october repeat x1 4 mg Intravenous - push February 01, 2025 January 31, 2026 Active Vitamin D (Calcitriol) Oral Every Treatment 0.25 mcg Oral December 02, 2024 November 29, 2025 Active Epoetin Sarath (Epogen) During Dialysis, 3X Week 7200 units Intravenous - push January 11, 2025 January 10, 2026 Discontinued Epoetin Sarath (Epogen) During Dialysis, 3X Week 5800 units Intravenous - push December 07, 2024 December 06, 2025 Discontinued Home Medications Medication Instructions Dosage [...] 13, 2024 Active fluticasone propionate 50 mcg/actuation [place] into both nostrils twice a day 1 [...] Sign Value Date / Time Blood Pressure-sitting 140/56 mmHg January 11:24 AM Heart Rate 71 beats per minute February 01 11:24 AM Respiratory Rate 18 breaths per minute January 11:24 AM Temperature 99.1 deg. F February 01, 2025 11:24 AM Weight Vital Sign Value Date / Time Estimated Dry Weight 101 kg January 15 11:59 PM Pre-Dialysis 103.60 kg February 01, 2025 11:24 AM Post-Dialysis 101.40 kg February 01, 2025 11:24 AM Other Other Value Date / Time Height 177.8 cm April 07, 2024 12:00 AM Body Mass Index 32.67 kg/m2 January 11, 2025 04 :40 PM [facility] Tuberculosis Testing TST Date Administered TST Date Read TST Result 08/31/2024 09/02/2024 Negative (<5) mm LAB RESULTS Hematology Result Type Result Value Relevant Referen ce Range Interpretation Date Folate, Serum > 24.0 ng/mL No Reference [...] - 4 % - September 23, 2024 Atypical Lymphs 8 % 0 - 4 % High October 28, 025 Bands 2 % 0 - 4 % - October 28, 2024 WBC (No Diff) 74.45 1000/mcL 4.80 - 10.80 1000/mcL High October 28, 2024 Blast Cells 14 % 0 - 0 % High October 28, 2024 Neutrophils 3 % 40 - 75 % Low October 28, 2024 UIBC/TIBC 197 mcg/dL 155 - 355 mcg/dL - October 28, 2024 Transferrin Sat. (Calc) 24 % 20 - 55 % - October 28, 2024 Platelets 115 1000/mcL 130 - 400 1000/mcL Low October 28, 2024 TIBC (Calc) 259 [...] 22 - 322 ng/mL High November 25, 2 025 Hemoglobin x 3 31.5 % 42.0 - 54.0 % Low November Platelets 108 1000/mcL 130 - 400 1000/mcL Low November 25, 2024 RDW 17.4 % 11.5 - 14.5 % November 25 MCH 31.6 pg 27.0 - 31.0 pg High November 25, MCHC 31.8 g/dL 30.0 - 36.0 g/dL - November 25, 2024 6.8 % 0.0 - 4.0 % High November 25, 2024 WBC (No Diff) 49.30 1000/mcL 4.80 - 10.80 1000/mcL November 25, 2024 Eosinophil 0.8 % 0.0 - 7.0 % - November 25, 2024 Basophils 0.6 % 0.0 - 1.5 % - November 25, 2024 Lymphocytes 86.8 % 19.0 - 48.0 % November 25 Monocytes 0.1 % 3.0 - 10.0 % November 25 Neutrophils 4.8 % 40.0 - 75.0 % November 25, 025 Ferritin 516 ng/mL 22 - 322 ng/mL High December 02, Hemoglobin x 3 28.2 % 42.0 - 54.0 % Low November Hemoglobin x 3 20.7 % 42.0 - 54.0 % Low November Hemoglobin x 3 26.7 % 42.0 - 54.0 % Low December Retic HGB 33.5 pg 25.4 - 31.8 pg December 28, Platelets 67 1000/mcL 130 - 400 1000/mcL Low December 28, 2024 Hemoglobin x 3 27.6 % 42.0 - 54.0 % December RDW 18.1 % 11.5 - 14.5 % December 28 WBC (No Diff) 12.39 1000/mcL 4.80 - 10.80 1000/mcL High December 28, 2024 Blast Cells 6 % 0 - 0 % December 28, 2024 Neutrophils 2 % 40 - 75 % December 28, 2024 Monocytes 3 % 3 - 10 % - December 28, 2024 Lymphocytes 82 % 19 - 48 % December 28, 2024 MCHC 30.4 g/dL 30.0 - 36.0 g/dL - December 28, 2024 MCH 32.3 pg 27.0 - 31.0 pg High December 28 025 Eosinophil 3 % 0 - 7 % [...] 42.0 - 54.0 % Low December HGB 9.4 g/dL 14.0 - 18.0 g/dL Low January 06, 2025 Hemoglobin x 3 28.2 % 42.0 - 54.0 % Low December HGB 10.2 g/dL 14.0 - 18.0 g/dL Low January 15, 2025 Hemoglobin x 3 30.6 % 42.0 - 54.0 % Low December HGB 9.9 g/dL 14.0 - 18.0 g/dL Low January Hemoglobin x 3 29.7 % 42.0 - 54.0 % Low January 22, 2025 Monocytes 0.2 % 3.0 - 10.0 % Low January 27 025 Lymphocytes 88.1 % 19.0 - 48.0 % High January 27, 2025 Basophils 0.7 % 0.0 - 1.5 % - January 27 Eosinophil 0.6 % 0.0 - 7.0 % - January 27 WBC (No Diff) 17.15 1000/mcL 4.80 - 10.80 1000/mcL High January 27, 2025 2.4 % 0.0 - 4.0 % - January 27 HCT 33.3 % 42.0 - 52.0 % Low January 27, 2025 RBC 3.08 mill/mcL 4.70 - 6.10 mill/mcL Low January 27, 2025 Neutrophils 8.0 % 40.0 - 75.0 % Low January 27, 2025 HGB 9.9 g/dL 14.0 - 18.0 g/dL Low January RDW 16.7 % 11.5 - 14.5 % High January 27, 2025 Platelets 64 1000/mcL 130 - 400 1000/mcL Low 2024 Hemoglobin x 3 29.7 % 42.0 - 54.0 % Low January 27, 2025 MCHC 29.8 g/dL 30.0 - 36.0 g/dL Low January MCH 32.3 pg 27.0 - 31.0 pg High January 27, 2025 TIBC (Calc) 232 mcg/dL 185 - 515 mcg/dL - January 27, 2025 Transferrin Sat. (Calc) 28 % 20 - 55 % - January 27, 2025 Iron 66 mcg/dL 45 - 160 mcg/dL - January UIBC/TIBC 166 mcg/dL 155 - 355 mcg/dL - January Metabolic/Renal Result Type Result Value Relevant Referen ce Range Interpretation Date Hemoglobin A1c 7.5 % 4.8 - 5.9 % High August 26, 2024 Vitamin B12 493 pg/mL 211 - 911 pg/mL - August BUN, Post 10 mg/dL 6 - 19 [...] mEq/L 22 - 29 mEq/L - November 25 Hemoglobin A1c 7.1 % 4.8 - 5.9 [...] - 80 % - December 30, 2024 URR, Calc 72 % 65 - 80 % - January 27 BUN, Post 8 mg/dL 6 - 19 mg/dL - January 27 BUN 29 mg/dL 6 - 19 mg/dL High January 27 Creatinine, Serum 4.15 mg/dL 0.60 - 1.30 mg/dL High January 27, 2025 BUN/Creat Ratio 7.0 10.0 - 20.0 Low January Sodium 139 mEq/L 136 - 145 mEq/L - January Potassium 4.7 mEq/L 3.5 - 5.1 mEq/L - January Chloride 102 mEq/L 96 - 108 mEq/L - January 27, 2025 Bicarbonate 27 mEq/L 22 - 29 mEq/L - January 27, 2025 HD Adequacy Result Type Result Value Relevant Referen ce Range Interpretation Date Krt/V 0.51 No Reference Ran ge Provided [...] residual 2.4 No Reference Range Provided - January 27, 2025 spKt/V Gotch 1.50 No Reference Ran ge Provided - January 27, 2025 wstdKt/V, residual 0.0 No Reference Range Provided - January 27, 2025 Krt/V 0.00 No Reference Ran ge Provided - January 27, 2025 spKt/V (Daugirdas II) 1.48 No Reference Range Provided - January 27, 2025 eKt/V ([place]) 1.30 No Reference Range Provided - January 27, 2025 wstdKt/V 2.4 No Reference Ran ge Provided - January 27, 2025 Bone/Mineral Result Type Result Value Relevant Referen ce Range Interpretation Date Magnesium 1.9 mg/dL 1.6 - 2.6 mg/dL - May 27, 2024 Vitamin D 25 Hydroxy 55.1 ng/mL 30 - 100 ng/mL - August 26, 2024 Magnesium 2.1 mg/dL 1.6 - 2.6 mg/dL - August 26, 2024 PTH-Intact, Plasma 275 pg/mL 16 - 80 pg/mL [facility] 2024 Vitamin D 1,25 Dihydroxy 34.3 pg/mL 19.9 - 79.3 pg/mL - August 26, 2024 Corrected Ca x P Product 42 [...] 27 0 - 54 - December 28, 2 025 Phosphorus 3.3 mg/dL 2.6 - 4.5 mg/dL - December 28, 2024 Calcium, Total 8.6 mg/dL 8.4 - 10.2 mg/dL - 2024 Phosphorus 4.1 mg/dL 2.6 - 4.5 mg/dL - January Ca x P Product 35 0 - January 27, 2025 Corrected Ca x P Product 36 0 54 - January 27, 2025 Liver/Nutrition Result Type Result Value Relevant Reference Range Interpre tation Date Globulin (Calc) 2.2 g/dL 2.0 - 4.0 g/dL - November 25, 2024 A/G Ratio 1.8 1.0 - 2.0 - November 25, 2024 Glucose 209 mg/dL 70 - 100 mg/dL High November 25, eNPCR 0.71 No Reference Ran ge Provided - November 25, 2024 Total Protein 6.1 g/dL 6.0 - 8.5 g/dL - November Albumin (BCG) 3.9 g/dL 3.5 - 5.2 g/dL - November A/G Ratio 1.9 1.0 - 2.0 - December 28, 2024 Globulin (Calc) 1.9 g/dL 2.0 - 4.0 g/dL Low December 28, 2024 Glucose 183 mg/dL 70 - 100 mg/dL High December 28, 025 Albumin (BCG) 3.7 g/dL 3.5 - 5.2 g/dL - December Total Protein 5.6 g/dL 6.0 - 8.5 g/dL Low December eNPCR 0.62 No Reference Ran ge Provided - December 30, 2024 Glucose 135 mg/dL 70 - 100 mg/dL High January 27, 2025 eNPCR 0.55 No Reference Ran ge Provided - January 27, 2025 Globulin (Calc) 1.6 g/dL 2.0 - 4.0 g/dL Low 2024 A/G Ratio 2.3 1.0 - 2.0 High January 27 Total Protein 5.2 g/dL 6.0 - 8.5 g/dL Low January 27, 2025 Albumin (BCG) 3.6 g/dL 3.5 - 5.2 g/dL - January 27, 2025 Lipid Result Type Result Value Relevant Referen [...] 64.0 - 99.0 mL/min Low April 20 Creatinine, Urine 85.2 mg/dL No Reference R [...] (HBsAg) Negative No Reference Range Provided - January 27, 2025 DIALYSIS PRESCRIPTION Conventional Hemodialysis Data Element Value Order Date/Time January 15, 2025 Frequency 3X Week Treatment Days TueThuSat Dialyzer [id number] Optiflux Treatment Time (Total Minutes) 240 min Blood Flow Rate (mL/min) 450 mL/min Dialysate Flow Rate Manual 800 Estimated Dry Weight 101 kg Dialysate Concentrate 3.0 K, 2.5 Ca, 1.0 Mg, 100 Dextrose (N3251) Sodium (mEq/L) 138 mEq/L Bicarb Machine Setting (mEq/L) 32 mEq/L Dialysis Access Hemodialysis-AV Gricelda t-Synthetic - [place] Acuseal, Right Upper Arm, Brachial Artery to [...] Resuscitation status Do Not Resuscitate (DNR) Ro Brett Apr 09, 2024 DIALYSIS TREATMENTS Conventional Hemodialysis Date Pre-Treatment Vitals Post-Treatment Malissa ls Duration (hr) BFR (mL/min) Dialysate Dialyzer Dialysis Access Meds Admin Augus t 2024 Weight 102.90 kg Weight 100.90 kg 04:11:00 450 3.0 K, 2.5 Ca, 1.0 Mg, 100 Dextrose (N3251) 180nre Optifl ux Blood Pressure-sitting 113/52 mmHg Blood Pressure-sit ting 129/61 mmHg Blood Pressure-standing 113/53 mmHg Heart Rate 88 b eats per minute Heart Rate 85 beats per minute Respiratory Rate 18 b reaths per minute Respiratory Rate 16 breaths per minute Temperature 98.6 deg. F Temperature 98.4 deg. F - - January 29, 2025 Weight 104.20 kg Weight 101.20 kg 04:02:00 450 3.0 K, 2.5 Ca, 1.0 Mg, 100 Dextrose (N3251) 180nre Optiflux Hemodialysis-AV Graft-Synthetic - [place] Acuseal, Right Upper Arm, Brachial Artery to Axillary Vein Access Placed on November 29, 2024 Epoetin Sarath (Epogen); 7200units,Intravenous - push Heparin Sodium (Porcine) 1,000 Units/mL Systemic; 5000units,Intravenous - push Iron Sucrose (Venofer); 100mg,Intravenous - push Vitamin D (Calcitriol) Oral; 0.25mcg,Oral Blood Pressure-sitting 145/68 mmHg Blood Pressure-sit ting 136/73 mmHg Blood Pressure-standing 118/60 mmHg Blood Pressure-st anding 122/50 mmHg Heart Rate 85 beats per minute Heart Rate 85 beats per minute Respiratory Rate 18 breaths per minute Respiratory Rate 16 breaths per minute Temperature 98.1 deg. F Temperature 98.1 deg. F February 01, 2025 Weight 103.60 kg Weight 101.40 kg 04:02:00 450 3.0 K, 2.5 Ca, 1.0 Mg, 100 Dextrose (N3251) 180nre Optiflux Hemodialysis-AV Graft-Synthetic - [place] Acuseal, Right Upper Arm, Brachial Artery to Axillary Vein Access Placed on November 29, 2024 Epoetin Sarath (Epogen); 9000units,Intravenous - push Heparin Sodium (Porcine) 1,000 Units/mL Systemic; 5000units,Intravenous - push Iron Sucrose (Venofer); 100mg,Intravenous - push Ondansetron HCl (Zofran); 4mg,Intravenous - push Blood Pressure-sitting 135/64 mmHg Blood Pressure-sit ting 140/56 mmHg Heart Rate 92 beats per minute Heart Rate 71 beats per minute Respiratory Rate 16 breaths per minute Respiratory Rate 18 breaths per minute Temperature 99.0 deg. F Temperature 99.1 deg. F
--- OUTSIDE RECORDS SUMMARY | 2025-02-02 18:08 | XMS_ITS | Encounter Summary ---
[facility] Organization [facility], [facility] Address [address] [place] [address] Phone Care Team Providers Care Orderlies Teacher Name Role Phone Alejandro Macias MD Primary Care Provider + [phone] Encounter Details Date Type Department Care Team (Late st Contact Info) Description 01/27/2025 Treatment [facility] [place], [facility] [address] [place] [address] Smitha Bryan NP [address] [place] [address] End stage renal disease; Dependence [...] encounter Miscellaneous Notes * Dialysis Note - Smitha Bryan NP - 01/27/2025 12:00 AM CDT Patient: Valente Renae : 1945 Note Type: Dialysis Rounds-Comp Service Date: 01/27/2025 This patient was personally seen [id number] for a complete visit as part of routine monthly dialysis care for end stage renal disease. Attending Acid Tester: TORY MCRAE Dialysis Location: [facility] Schedule: Shift: 2 OVERVIEW Patient is stable. Patient has no complaints. COMMENTS: Seen on Dialysis. Denies concerns today. HOME MEDICATIONS Medications reviewed. DIALYSIS PRESCRIPTION Treatment Data Treatment Date: 01/29/2025 started at: 11:03 AM Dialysate / Machine Temp (prescribed): 37.0*C Dialysate / Machine Temp (actual): 37.0*C BFR (prescribed): 450 BFR (average delivered): 450 DFR (prescribed): Manual 800 DFR (average delivered): 800 Prescribed Time: 04:00 Actual Time: 04:02 EDW (kg): 101.0 Dialyzer: 180NRe Optiflux Dialysate: 3.0 K, 2.5 Ca, 1.0 Mg, 100 Dextrose (N3251) Sodium: 138 Bicarb: 32 Pre Dialysis Vitals Pre BP Sit: 145/68 Pre Wt (kg): 104.2 EDW Deviation (kg): 3.2 Temp: 98.1*F Post Dialysis Vitals Post BP Sit: 136/73 Post Wt (kg): 101.2 TREATMENT MEDICATIONS ORDERS Epoetin Sarath (Epogen) 7200 units IVP 3X Week During Dialysis 01/11/2025 - 01/10/2026 Heparin Sodium (Porcine) 1,000 Units/mL Systemic 5000 units IVP Every Treatment 05/22/2024 - 05/21/2025 Iron Sucrose (Venofer) 100 mg IVP 3X Week During Dialysis 01/27/2025 - 02/17/2025 Vitamin D (Calcitriol) Oral 0.25 mcg ORAL Every Treatment 12/02/2024 - 11/29/2025 BP AND FLUID ASSESSMENT Acceptable blood pressure. Fluid status acceptable. Post BP Sit 136/73 - 01/29/2025 129/61 - 01/27/2025 136/52 - 01/25/2025 Post Wt (kg) 101.2 - 01/29/2025 100.9 - 01/27/2025 101.0 - 01/25/2025 EDW (kg) 101.0 - 01/29/2025 101.0 - 01/27/2025 101.0 - 01/25/2025 Deviation (kg) 0.2 - 01/29/2025 -0.1 - 01/27/2025 0.0 - 01/25/2025 ADEQUACY ASSESSMENT spKt/V (Daugirdas II) 1.42 (12/30/24) 1.56 (11/25/24) 1.62 (10/28/24) eKdrt/V 1.24 (12/30/24) 1.36 (11/25/24) 1.43 (10/28/24) % Urea Reduction 72 (01/27/25) 72 (12/30/24) 76 (11/25/24) BUN 29 (01/27/25) 36 (12/30/24) 36 (12/28/24) BUN Post Dialysis 8 (01/27/25) 10 (12/30/24) 10 (11/25/24) Creatinine 4.15 (01/27/25) 5.01 (12/28/24) 4.18 (11/25/24) Bicarbonate (CO2) 27 (01/27/25) 25 (12/28/24) 25 (11/25/24) Sodium 139 (01/27/25) 141 (12/28/24) 141 (11/25/24) COMMENTS: No new clearance labs to review Missed Treatments 3 - Last 30 days 4 - Last 60 days Most recently missed on 01/20/2025 ACCESS ASSESSMENT Vascular access examined. AVF/AVG positive thrill/bruit. Current access is permanent and functioning well. AVGraft Synthetic - [place] Acuseal Right Upper Arm Active (In Use) [...] Platelets 64 (01/27/25) 67 (12/28/24) 108 (11/25/24) Anemia targets not met. Hemoglobin not at target. ABI adjusted per protocol. Iron adjusted per protocol. No iron needed at this time. BMM ASSESSMENT Calcium 8.6 01/27/25 8.3 12/28/24 [...] 104 05/27/24 Aluminum ?5 08/26/24 ?5 04/08/24 PTH within target. Phosphorus controlled. Calcium controlled. Bone and mineral metabolism parameters reviewed. NUTRITION ASSESSMENT Albumin 3.6 01/27/25 3.7 12/28/24 3.9 11/25/24 Potassium 4.7 01/27/25 4.4 12/28/24 4.4 11/25/24 eNPCR 0.62 12/30/24 0.71 11/25/24 0.86 10/28/24 Hemoglobin A1C 7.1 11/25/24 7.5 08/26/24 7.2 05/27/24 Albumin not at goal. Potassium controlled. ADDITIONAL LABS WBC 17.15 (01/27/25) 12.39 (12/28/24) 49.30 (11/25/24) Cholesterol 104 (08/26/24) HDL 37 (08/26/24) LDL Calculated 32 (08/26/24) Triglycerides 174 (08/26/24) Hepatitis B Surface Ab ?10 (10/28/24) ?10 (09/02/24) ?10 (08/26/24) ADDITIONAL COMMENT COMMENTS: No changes to POC or oders Signed by: SMITHA BRYAN NP on 01/30/2025 at 03:57:42 PM Transcribed by: SMITHA BRYAN NP on 01/30/2025 at 03:57:42 PM documented in this encounter Plan of Treatment Not on file documented as of this encounter Visit Diagnoses Diagnosis End stage renal disease Dependence on renal dialysis documented in this encounter Care Teams Orderlies Teacher Relationship Specialty Start Date End Date Alejandro Macias MD [address] [place], [place] [id number] PCP - General Family Medicine 12/15/18 documented as of this encounter
--- OUTSIDE RECORDS SUMMARY | 2025-02-02 18:08 | XMS_ITS | Encounter Summary ---
Author Organization [facility], [facility] Address [address] [place] [address] Phone Care Team Providers Care Respiratory Practitioner Name Role Phone Alejandro Macias MD Primary Care Provider + [phone] Encounter Details Date Type Department Care Team (Late st Contact Info) Description 01/27/2025 Orders Only [place] [facility] [address] [place] [address] Ro West MD [address] [place] [address] Social History Tobacco Use Types [...] Procedure Name Priority Date/Time Associated Diagnosis Comments HD KINETICS Routine 01/27/2025 POST CHEMISTRY Routine 01/27/2025 IMMUNO CHEMISTRY Routine 01/27/2025 HEMATOLOGY Routine 01/27/2025 CHEMISTRY Routine 01/27/2025 [facility] RESULTS Routine 01/27/2025 documented in this encounter Results * [facility] Results (01/27/2025) Pathologist [facility] eNPCR 0.55 [facility] nPCR_HD 0.60 [facility] PCR 45.93 [facility] eKt/V [facility] 2.4 [facility] eKdrt/V 1.31 [facility] spKt/V (Daugirdas II) 1.48 [facility] spKt/V Gotch 1.50 [facility] eKt/V ([place]) 1.30 [facility] 01/27/2025 01/27/2025 [facility] Ordering Provider LAB BLOOD ORDERABLES Final Result [facility] Contact Performing lab Unknown, [place] * HD KINETICS (01/27/2025) Pathologist [facility] % Urea Reduction 72 65 - 80 % [facility] 01/27/2025 01/28/2025 2:0 2 PM CDT Narrative Resulting Agency Comment Specimen source: Plasma us Ro West MD LAB BLOOD ORDERABLES Final Re sult [facility] See order comments or contact performing lab Unknown, [place] * POST CHEMISTRY (01/27/2025) Pathologist [facility] BUN Post Dialysis 8 6 - 19 mg/dL [facility] 01/27/2025 01/28/2025 2:0 2 PM CDT Narrative [facility] - 01/29/2025 Unless otherwise specified, test(s) performed at: [facility], [address] [place] [id number] FREIGHT AND PASSENGER AGENT: Fab Frnech M.D. For any questions, please call customer service at FREQUENCY:MONTHLY Resulting Agency Comment Specimen source: Plasma us Ro West MD LAB BLOOD ORDERABLES Final Re sult Performing Organization Address [facility]/ZIP Co de Phone Number [facility] See order comments or contact performing lab Unknown, [place] * IMMUNO CHEMISTRY (01/27/2025) [facility] Hep B Surface Ag Negative Negative [facility] 01/27/2025 01/28/2025 2:1 6 PM CDT Narrative [facility] - 01/28/2025 Unless otherwise specified, test(s) performed at: [facility], [address] [place], [place] [id number] FREIGHT AND PASSENGER AGENT: Fab French M.D. For any questions, please call customer service at FREQUENCY:MONTHLY Resulting Agency Comment Specimen source: Serum Ro West MD LAB BLOOD ORDERABLES Final Re [facility] Performing Organization Address [facility] Co de Phone Number [facility] See order comments or contact performing lab Unknown, [place] * (ABNORMAL) [facility] Chemistry (01/27/2025) [facility] BUN 29(H) 6 - 19 mg/dL [facility] [...] 01/28/2025 Unless otherwise specified, test(s) performed at: [facility], [address] [place], [place] [id number] FREIGHT AND PASSENGER AGENT: Fab French M.D. For any questions, please call customer service at FREQUENCY:MONTHLY Resulting Agency Comment Specimen source: Serum Ro West MD LAB BLOOD ORDERABLES Final Re sult [facility] See order comments or contact performing lab Unknown, [place] * (ABNORMAL) HEMATOLOGY (01/27/2025) Neutrophils 8.0(L) 40.0 - 75.0 % [facility] [...] 01/28/2025 Unless otherwise specified, test(s) performed at: [facility], [address] [place] [address] FREIGHT AND PASSENGER AGENT: Fab French M.D. For any questions, please call customer service at FREQUENCY:MONTHLY Resulting Agency Comment Specimen source: Blood us Ro West MD LAB BLOOD ORDERABLES Final Re sult [facility] See order comments or contact performing lab Unknown, [place] documented in this encounter Visit Diagnoses Not on filedocumented in this encounter Care Teams Respiratory Practitioner Relationship Specialty Start Date End Date Alejandro Macias MD [address] [place] [address] PCP - General Family Medicine 12/15/18 documented as of this encounter
--- OUTSIDE RECORDS SUMMARY | 2025-02-02 18:08 | XMS_ITS | Patient Health Record ---
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) Active confirmed Problem Anemia in chronic kidney disease (492860134) 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) Active confirmed Problem Type II diabetes mellitus without complication (589829097) Type 2 diabetes mellitus without complications (E11.9) Active confirmed Problem Chronic kidney disease due to hypertension (945641218608215) Hypertensive chronic kidney disease with stage 1 through stage 4 chronic kidney disease, or unspecified chronic kidney disease (I12.9) Active confirmed Problem Chronic kidney disease stage 4 (734380586) Chronic kidney disease, stage 4 (severe) (N18.4) Active confirmed Problem Secondary hyperparathyroidism of renal origin (00659488) Secondary hyperparathyroidism of renal origin (N25.81) Active confirmed Problem Dependence on renal dialysis (197470696) Dependence on renal dialysis (Z99.2) Active confirmed Problem Essential hypertension (35833845) HTN (hypertension), benign (I10) Active confirmed Problem Chronic kidney disease stage 4 (875083556) CKD (chronic kidney disease), stage IV (N18.4) Active confirmed Problem Hyperparathyroidism (34689094) Hyperparathyroidism (E21.3) Active confirmed Problem Benign hypertension (43513096) Hypertension, benign (I10) Active confirmed Problem Chronic lymphoid leukemia, disease (85868164) CLL (chronic lymphocytic leukemia) (C91.10) Active confirmed Problem Chronic kidney disease stage 4 (318975909) Chronic kidney disease, stage IV (severe) (N18.4) Active confirmed Problem Benign prostatic hypertrophy with outflow obstruction (905878261) BPH NOS w ur obs/LUTS (N40.1) Active confirmed Problem Chronic kidney disease stage 3A (disorder) (137974278) Chronic kidney disease, stage 3a (N18.31) Active confirmed Problem End stage renal disease (98277605) End-stage renal disease (ESRD) (N18.6) Active confirmed Vital Signs Heart Rate 95 /min 2024 Temperature 98.2 degrees Fahrenheit 2024 Height-cm 180.34 cm 2024 Oximetry 98 % 2024 Blood pressure diastolic 69 mm Hg 2024 Weight-kg 110.5 kg 2024 Height 71 in 2024 Blood pressure systolic 152 mm Hg 2024 Weight 243.61 lbs 2024 BMI 33.97 kg/m2 2024 Encounters Encounter Location Date Provider Diagnosis [facility] [address] [place] [address] Dr Arroyo [address] [place] [address], [place] [address] 2024 Tito Leone Chronic kidney disea se, [...] complications E11.9 and Former smoker Z87.891 [facility] [address] [place] [address] [place] [address] 02/03/2024 Sally Haney Hypertensive chronic kidney disease with stage 1 through stage 4 chronic kidney disease, or unspecified chronic kidney disease I12.9 ; Chronic kidney disease, stage IV (severe) N18.4 ; 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 ; Non-nephrotic range proteinuria R80.9 ; Asymptomatic hyperuricemia E79.0 and Secondary hyperparathyroidism of renal origin N25.81 [facility] [address] [place] [address] Dr [address] [place] [address] 03/09/2024 Tito Leone [facility] [address] [place] [address] [place] [address] 07/16/2024 Tito Leone [facility] [address] [place] [address] [place] [address] 07/19/2024 Tito Leone Assessments Encounter Date Diagnosis (ICD Code) Assessment Notes Treatment Notes Treatment Clinical Notes Section Notes 02/03/2024 Hypertensive chronic kidney disease with stage 1 through stage 4 chronic kidney disease, or unspecified chronic kidney disease (ICD-10 - I12.9) 2024 Chronic kidney disease, stage IV (severe) [...] zanubrutinib and Plavix. Hyperuricemia is asymptomatic. 2024 Hypertensive chronic kidney disease with stage [...] Non-nephrotic range proteinuria (ICD-10 - R80.9) 2024 Secondary hyperparathyroidism of renal origin (ICD-10 [...] zanubrutinib and Plavix. Hyperuricemia is asymptomatic. 2024 Hyperkalemia (ICD-10 - E87.5) CKD is [...] asymptomatic. 02/03/2024 Asymptomatic hyperuricemia (ICD-10 - E79.0) 02/03/2024 Secondary hyperparathyroidism of renal origin (ICD-10 - N25.81) 2024 Anemia in neoplastic disease (ICD-10 - [...] zanubrutinib and Plavix. Hyperuricemia is asymptomatic. 2024 CLL (chronic lymphocytic leukemia) (ICD-10 - [...] up in 3 months with labs at [facility] BMP, mag, uric acid, phos, PTH, [...] Name Order Date Basic Metabolic Panel (BMP) 79666 2023 Hemoglobin 22287 09/30/2023 Magnesium (B) 60670 09/30/2023 Phosphorus (B) 36498 09/30/2023 Protein (U) Random 91219 09/30/2023 Uric Acid (B) 95811 09/30/2023 Creatinine (U) 17363 09/30/2023 UA Reflex Micro, Reflex Cult 46362, 8101 5, 62509 09/30/2023 PTH Intact 93602 09/30/2023 Basic Metabolic Panel (BMP) 57307 2020 Phosphorus (B) 18786 12/07/2020 PTH Intact 56856 12/07/2020 Basic Metabolic Panel (BMP) 84945 2022 Ferritin 49137 06/18/2023 Hemoglobin 50848 06/18/2023 Iron Binding Capacity Total 64616 2022 Iron Level 88274 06/18/2023 Magnesium (B) 79494 06/18/2023 Phosphorus (B) 07798 06/18/2023 Protein (U) Random 75354 06/18/2023 Uric Acid (B) 02549 06/18/2023 Creatinine (U) 44676 06/18/2023 UA Reflex Micro, Reflex Cult 49271, 8101 5, 79299 06/18/2023 PTH Intact 51516 06/18/2023 Albumin 23710 02/03/2024 Basic Metabolic Panel (BMP) 96800 2023 Ferritin 15721 02/03/2024 Hemoglobin 21359 02/03/2024 Iron Binding Capacity Total 92282 2023 Iron Level 81320 02/03/2024 Magnesium (B) 20867 02/03/2024 Phosphorus (B) 70024 02/03/2024 Protein (U) Random 16708 02/03/2024 Uric Acid (B) 10237 02/03/2024 Vitamin D Total (B) 11035 02/03/2024 Creatinine (U) 58486 02/03/2024 UA Reflex Micro, Reflex Cult 42527, 8101 5, 21469 02/03/2024 PTH Intact 08305 02/03/2024 % Iron Saturation (Fe & TIBC)--80144,835 50 02/03/2024 Future Test Test Name Order Date Basic Metabolic Panel (BMP) 99909 2023 CBC w\ Auto Diff 81506 06/17/2024 Ferritin 06769 06/17/2024 Hemoglobin 68417 06/17/2024 Magnesium (B) 42817 06/17/2024 Phosphorus (B) 34600 06/17/2024 Protein (U) Random 72125 06/17/2024 Uric Acid (B) 16667 06/17/2024 Microalbumin (U) Random 64345 06/17/2024 Creatinine (U) 14842 06/17/2024 UA Reflex Micro, Reflex Cult 44147, 8101 5, 86872 06/17/2024 PTH Intact 84563 06/17/2024 % Iron Saturation (Fe & TIBC)--75353,835 50 06/17/2024 Insurance Providers Payer Name Payer Address Payer Phone Subscriber Number Group Number Insured Name Patient Relationship to Insured Coverage Start Date Coverage End Date [employer] [address] [place] [phone] [id number] Valente Renae Self - patient is the insured Medical (General) History Medical History History ICD Code Allergic rhinitis Benign prostatic hyperplasia (BPH) Coronary artery disease Chronic lymphocytic leukemia GERD Hyperlipidemia Hypertension Type II diabetes Diabetic nephropathy hearing loss COVID (12/2020) Stage IV CKD Hyperkalemia Anemia Secondary hyperparathyroidism of renal o rigin Metabolic acidosis Hyperuricemia Surgical History Surgery Date(Month/Year) appendectomy coronary stents x2 4v-CABG Hospitalization History Reason Date(Month/Year) see surgical
--- OUTSIDE RECORDS SUMMARY | 2025-02-02 18:09 | XMS_ITS | Encounter Summary ---
Author Organization [facility] Address [address] [place] [address] Care Team Providers Care Broadcasting Equipment Mechanic Name Role Phone Paula Sandoval MD Primary Care Provider + [phone] Reason for Visit * Reason Onset Date Comments Appointment Notification 01/25/2025 reschedule appt 01/25/2025 Dialysis conflic t Encounter Details Date Type Department Care Team (Late st Contact Info) Description 01/25/2025 Telephone [facility] [address] [facility] [address] [place] [address] Sotero Alejandro MD [address] [facility] [address] [place] [address] Appointment Notification; reschedule appt (Dialysis conflict) Social History Tobacco Use Types Packs/Day Years [...] encounter Miscellaneous Notes * Telephone Encounter - Brittany Worthy - 01/25/2025 8:41 AM CDT Provider: Flavia , call daughter Brooke PHI yes MESSAGE Caller states the date of 06/02/25 is a conflict date for her father's dialysis. Needs Mon/Wed or Fri after 9 am. Brittany Worthy, [facility] * Telephone Encounter - Milena Serra - 01/25/2025 8:24 AM CDT Provider: Flavia / Brooke / Daughter / On PHI MESSAGE Needing to reschedule the appt on 02/10/25 pt has dialysis on that day, would like to see if they can get it on 02/11/25 after 9:30 am, please reach out to the pt when this has been rescheduled, thank you. Milena Serra, [facility] documented in this encounter Plan of Treatment Upcoming Encounters Date Type Department Care Team (Latest Contact Info) Description 02/07/2025 2:00 PM CDT Hospital Encounter [facility] [address] [place] [address] Clinton Ascencio, DO [address] [address] 02/07/2025 2:00 PM CDT - 02/07/2025 2:20 PM CDT Surgery [facility] [address] [place] [phone] Clinton Ascencio, DO [address] [address] ESOPHAGOGASTRODUODENOSCOPY 02/16/2025 12:30 PM CDT Nurse Only [facility] [address] [place] [address] Sotero Alejandro MD [address] [place] [phone] 02/28/2025 10:30 AM CDT Appointment [facility] [address] [place] [address] 03/18/2025 11:30 AM CDT Office Visit [facility] [place] [address] [place] [address] Klarissa Flowers MD [address] [place] [address] 03/21/2025 12:05 PM CDT Appointment [facility] [address] [place] [address] 03/21/2025 1:00 PM CDT Office Visit [facility] [place] [address] [place] [address] Umm Dotson DO [address] [place] [address] 05/09/2025 1:00 PM PERSONAL INJURY PARALEGAL Office Visit [facility] [address] [place] [address] Lyndsey Dorsey, MARCELLO [address] [place] [address] 07/18/2025 11:00 AM PERSONAL INJURY PARALEGAL Office Visit [facility] [address] [place] [address] Sotero Alejandro MD [address] [place] [address] Eliana Davis NP [address], [address] [place] [address] Scheduled Procedures Name Priority Associated Diagnoses Date/Ti me ESOPHAGOGASTRODUODENOSCOPY gastric ulcer 02/07/2025 2:00 PM CDT documented as of this encounter Visit Diagnoses Not on filedocumented in this encounter Care Teams Broadcasting Equipment Mechanic Relationship Specialty Start Date End Date Paula Sandoval MD [address] [place] [phone] PCP - General Family Practice 10/18/24 documented as of this encounter
--- OUTSIDE RECORDS SUMMARY | 2025-02-02 18:09 | XMS_ITS | Encounter Summary ---
Author Organization [facility] Address [address] [place] [address] Care Team Providers Care Cash Management Coordinator Name Role Phone Paula Sandoval MD Primary Care Provider + [phone] Reason for Visit * Reason Onset Date Comments Needs to reschedule 01/18/2025 Encounter Details Date Type Department Care Team (Late st Contact Info) Description 01/18/2025 Telephone [facility] [address] [facility] [address] [place] [address] Lyndsey Dorsye, MARCELLO [address] [facility] [address], [address] [place] [address] Needs to reschedule Social History Tobacco Use Types Packs/Day Years [...] encounter Miscellaneous Notes * Telephone Encounter - Fabiola Banks RN - 01/18/2025 11:07 AM CDT I left a message for the patient to return my call. * Telephone Encounter - Mariah Putnammona - 01/18/2025 10:20 AM CDT Willian (Provider) Caller: Brooke/ Daughter/ on PHI/ [phone] MESSAGE Daughter states PT is getting a pacemaker installed on 01/19/2025, so is asking to move the 01/21/2025 Willian appointment out 2-3 weeks, please Thank you Cardiology Database Administrator: Kathi Jersey documented in this encounter Plan of Treatment Upcoming Encounters Date Type Department Care Team (Latest Contact Info) Description 02/07/2025 2:00 PM CDT Hospital Encounter [facility] Endoscopy [address] [place] [address] Clinton Ascencio, DO [address] [address] 02/07/2025 2:00 PM CDT - 02/07/2025 2:20 PM CDT Surgery [facility] Endoscopy [address] [place] [address] Clinton Ascencio, DO [address] [place] [address] ESOPHAGOGASTRODUODENOSCOPY 02/16/2025 12:30 PM CDT Nurse Only [facility] [address] [place] [address] Sotero Alejandro MD [address] [place] [address] [place] [address] 02/28/2025 10:30 AM CDT Appointment [facility] [address] [place] [address] 03/18/2025 11:30 AM CDT Office Visit [facility] Vascular [facility] [place] [address] [place] [address] Klarissa Flowers MD [address] [place] [address] 03/21/2025 12:05 PM CDT Appointment [facility] [address] [facility] 2 [place] [address] 03/21/2025 1:00 PM CDT Office Visit [facility] [place] [address] [facility] 2 [place] [address] Umm Dotson DO [address] [place] [address] 05/09/2025 1:00 PM [employer] INSTALLER Office Visit [facility] [address] [place] [address] Lyndsey Dorsey, MARCELLO [address] [place] [address] 07/18/2025 11:00 AM [employer] IN[employer]ER Office Visit [facility] [address] [place] [address] Sotero Alejandro MD [address] [place] [address] [place] [address] Eliana Davis, MARCELLO [address] [facility] [address] [place] [address] Scheduled Procedures Name Priority Associated Diagnoses Date/Ti me ESOPHAGOGASTRODUODENOSCOPY gastric ulcer 02/07/2025 2:00 PM CDT documented as of this encounter Visit Diagnoses Not on filedocumented in this encounter Care Teams Cash Management Coordinator Relationship Specialty Start Date End Date Paula Sandoval MD [address] [place] [address] PCP - General Family Practice 10/18/24 documented as of this encounter
== END 2025-02-01 21:21 | disposition home or self-care (01) ==
PROVIDERS: Emergency Medicine; Emergency Provider Emergency Medicine; PCP Family Medicine
DX: D69.6 Thrombocytopenia, unspecified (principal); R05.9 Cough, unspecified; E11.649 Type 2 diabetes mellitus with hypoglycemia without coma; G93.41 Metabolic encephalopathy; E11.22 Type 2 diabetes mellitus with diabetic chronic kidney disease; I12.9 Hypertensive chronic kidney disease with stage 1 through stage 4 chronic kidney disease, or unspecified chronic kidney disease; N18.9 Chronic kidney disease, unspecified; E78.5 Hyperlipidemia, unspecified; Z95.1 Presence of aortocoronary bypass graft; Z87.891 Personal history of nicotine dependence; Z11.52 Encounter for screening for COVID-19; Z79.4 Long term (current) use of insulin
CPT/HCPCS: 36415; 36416; 71046; 80053; 82962; 85025; 87040; 87637; 93005; 96361; 96374; 99285; J0696; J7040; J7799

== ENCOUNTER 2025-03-31 15:52 | Inpatient (IN) | payer OTHER, SELFPAY ==
[2025-03-31] VITALS (10 sets, daily range): BP systolic 93–132; BP diastolic 37–56; PULSE 68–112; RESP 16–29; TEMP 36.3–37.7; O2SAT 91–98; BMI 28.3; BMI 30.4
--- NOTE | 2025-03-31 16:00 | ECG_ITS ---
[facility]: 2025-03-31 Pat Name: Valente Renae Department: Room: Gender: Male Search Engine Optimization Analyst: : 1945 Requested By: Litzy Welch Order Number: [id number] Reading MD: DEIDRE GROSSMAN Measurements Intervals [place] Rate: 111 P: -22 AR: 120 QRS: 257 QRSD: 154 T: 82 QT: 382 QTc: 520 Interpretive Statements ELECTRONIC VENTRICULAR PACEMAKER ABNORMAL RHYTHM ECG Compared to ECG 02/01/2025 16:58:17 Sinus rhythm no longer present Atrial premature complex(es) no longer present Electronically Signed On 03-31-2025 16:49:22 CDT by DEIDRE GROSSMAN [email or web address]
--- NOTE | 2025-03-31 16:00 | W.ED.WEAKNES ---
HPI - Weakness General: Chief complaint: Weakness Stated complaint: issues with CHF History of Present Illness: Patient is 80-year-old gentleman ESRD on HD TTS, HTN, DM, presents with EMS from [facility] hemodialysis with weakness. Patient's history is leukemia, they removed 3.5 kg off today, which noted is pushing it for patient. Patient had extreme weakness just after treatment. Hemodialysis center placed him on 2 L/min. EMS notes that his oxygen saturation was not low, and they continued to 2 L/min. Patient is on room air at home. Here, patient was placed on room air, and RN was able to achieve 88% with good waveform on room air. Patient was placed back on 2 L/min. Patient denies any shortness of breath, dysuria, fever, chills, chest discomfort, just extreme weakness. No recent viral illness or exposure Associated symptoms: Denies chest pain, chills, melena, diaphoresis, easy bruising, fever(s), headache(s), nausea, syncope or vomiting Related Data Home Medications ?Medication ?Instructions ?Recorded ?Confirmed docusate sodium 100 mg capsule 100 mg PO DAILY PRN Constipation 12/02/19 03/31/25 (Colace) cholecalciferol (vitamin D3) 25 50 mcg PO DAILY 12/14/20 03/31/25 mcg (1,000 unit) capsule diclofenac sodium 1 % topical gel 4 g topical QID PRN Pain 05/02/21 03/31/25 insulin regular human 100 unit/mL See Rx Instructions .Route 05/02/21 03/31/25 injection solution (Novolin R .COMPLEX see pharmacy comments Regular U-100 Insulin) loratadine 10 mg tablet (Claritin) 10 mg PO DAILY 05/02/21 03/31/25 tamsulosin 0.4 mg capsule 0.8 mg PO QPM 10/18/21 03/31/25 fluticasone propionate 50 2 spray intranasal DAILY PRN 07/16/22 03/31/25 mcg/actuation nasal allergies spray,suspension (Flonase Allergy Relief) finasteride 5 mg tablet 5 mg PO DAILY 11/20/22 03/31/25 insulin glargine 100 unit/mL (3 50 unit SUBCUT QAM 11/20/22 03/31/25 mL) subcutaneous pen sevelamer carbonate 800 mg tablet 800 mg PO BID 05/12/24 03/31/25 atorvastatin 80 mg tablet 80 mg PO QPM 01/13/25 03/31/25 carvedilol 6.25 mg tablet See Rx Instructions .Route .COMPLEX 01/13/25 03/31/25 folic acid 1 mg tablet 1 mg PO DAILY 01/13/25 03/31/25 furosemide 80 mg tablet 80 mg PO QAM 01/13/25 03/31/25 isosorbide mononitrate 30 mg 30 mg PO QAM 01/13/25 03/31/25 tablet,extended release 24 hr nitroglycerin 0.4 mg sublingual 0.4 mg sublingual Q5M PRN heart 01/13/25 03/31/25 tablet issues pantoprazole 40 mg tablet,delayed 40 mg PO DAILY 01/13/25 03/31/25 release pirtobrutinib 50 mg tablet 50 mg PO DAILY 01/13/25 03/31/25 Allergies Allergy/AdvReac Type Severity Reaction Status Date / Time allopurinol Allergy ALGY-Rash Verified 02/01/25 16:51 Iodinated Contrast Media Allergy ALGY-Hives Verified 02/01/25 16:51 levofloxacin (From Levaquin) Allergy ADR-Confusi Verified 02/01/25 16:51 on metformin Allergy ADR-Fatigue Verified 02/01/25 16:51 d Review of Systems General: Reports: 10 or more systems reviewed and unremarkable except in HPI and below Const: Reports: fatigue and malaise; Denies: fever(s), chills or diaphoresis Eyes: Denies: change in vision ENMT: Denies: epistaxis Card: Denies: chest pain, palpitations, irregular heart rhythm, syncope, pre-syncope, orthopnea or leg pain with exertion Resp: Reports: non-productive cough (recently); Denies: dyspnea, productive cough or wheezing GI: Denies: nausea, vomiting, hematemesis, hematochezia or melena : Denies: hematuria Musc: Denies: neck pain or back pain Skin/Breast: Denies: rash or pruritus Neuro: Denies: headache(s) or numbness in extremities Psych: Denies: anxiety or depression Madi/Lymph: Denies: easy bruising or easy bleeding PFS ED PFSH: Medical History (Updated 03/31/25 @ 18:54 by Vika Go MD) Hyperuricemia History of COVID-19 (~12/2020) Anemia, unspecified Complex renal cyst BPH loc w urin obs/LUTS Diabetes HTN (hypertension) ASHD (arteriosclerotic heart disease) Dyslipidemia CKD (chronic kidney disease) CLL (chronic lymphocytic leukemia) Carotid stenosis, bilateral Surgical History H/O removal of testicle S/P appendectomy S/P CABG (coronary artery bypass graft) S/P PTCA (percutaneous transluminal coronary angioplasty) Status cardiac pacemaker Family History Mother , in her 70's Diabetes CAD (coronary artery disease) Father , at age 69 CAD (coronary artery disease) Hypertension Other Cancer Chronic kidney disease (CKD) Stroke Suicide Denies family history of Clotting disorder Dementia Hyperlipidemia Psychiatric illness Anesthesia complication Bleeding disorder Lung disease Social History Smoking and tobacco/nicotine status: former use of tobacco/nicotine Quit status (tobacco/nicotine): has quit using Year quit tobacco: 1989 Alcohol intake: never Substance/Drug Use: never Household members: spouse Marital status: Current occupational status: retired Physical Exam Const: COMMON NORMALS: no acute distress, average body habitus and patient oriented x3 GENERAL APPEARANCE: cooperative and comfortable HENMT: COMMON NORMALS: normocephalic, atraumatic and hearing grossly normal bilaterally HEAD & SCALP: normocephalic and atraumatic Neck/C-Spine: COMMON NORMALS: full ROM and no lymphadenopathy Lymph: LYMPHATIC: no lymphadenopathy noted Chest: COMMONS NORMALS: normal inspection of the chest Resp: EFFORT & INSPECTION: Yes able to speak in complete sentences, Yes symmetric chest movement, No respiratory distress and No labored AUSCULTATION: crackles Laterality: left and posterior (LL) Cardio: COMMON NORMALS: regular rate and regular rhythm RATE: regular rate RHYTHM: regular rhythm GI: COMMON NORMALS: Normal to inspection, nondistended, normoactive bowel sounds present, Soft to palpation, non-tender and No hepatosplenomegaly present PALPATION: Yes Soft to palpation and Yes No hepatosplenomegaly present : COMMON NORMALS: Yes no CVA tenderness BLADDER/KIDNEY EXAM: Yes no CVA tenderness Back/Pelvis: COMMON NORMALS: no CVA tenderness Extremity: COMMON NORMALS: normal to inspection, full ROM and capillary refill normal Neuro: COMMON NORMALS: patient oriented x3 Psych: COMMON NORMALS: mental status grossly normal, Normal thought process present and cooperative THOUGHT PROCESS: Normal thought process present Skin: COMMON NORMALS: no rashes or lesions noted and no wounds GENERAL SKIN EXAM: no rashes or lesions noted Course Consultations: Consultation #1: Discussed with Dr. Go, with hospitalist, accepted admission. Recommended right upper quadrant ultrasound. Do not take upstairs until right upper quadrant ultrasound was done. Vital Signs: Vital signs: Vital Signs Temperature 99.8 F H 03/31/25 15:54 Pulse Rate 99 03/31/25 19:41 Respiratory Rate 18 03/31/25 19:41 Blood Pressure 127/54 03/31/25 19:41 Pulse Oximetry 96 03/31/25 19:41 Oxygen Delivery Me thod Room Air 03/31/25 19:41 Oxygen Flow Rate 2 03/31/25 15:54 MDM - Weakness Medical Decision Making 80-year-old gentleman that just came from hemodialysis after removing 3.5 kg presents with extreme weakness. This occurred just today. did take his temperature prior to hemodialysis and it was normal for patient. 99.8 she relates is elevated. He has been treated as neutropenic fever with his WBC 3.3, however his ANC is 2.5, with platelets of 70, and typically patient runs lower with his CLL. His procalcitonin is elevated, his lactic acid is elevated, as well as his troponin of 219. His troponin appears to be associated with supply/demand mismatch, associated with possible sepsis and his procalcitonin and lactic acid elevation. I do suspect underlying pneumonia/infiltrate given the ill-defined streaky opacities to the left lower lobe that most likely are representing his infiltrate. He has not had a cough, or sputum production. His COVID is negative. This is bacterial until proven otherwise. He has been treated with cefepime for neutropenic fever given his CLL, and doxycycline for atypical coverage. Will defer vancomycin to hospitalist Discussed with hospitalist, right upper quadrant ultrasound is warranted prior to admission to the medical surgical floor given elevation of bilirubin and procalcitonin of 7. Dr. Go has accepted admission however after ultrasound is completed and no association of cholecystitis. Patient has received a total of 1 L with his lactic acidosis. He is at risk for fluid overload, and therefore we will redraw lactic acid after the 500 mL, and give additional 500 mL instead of normal sepsis dose given his HD and lack of urine production. He does produce some urine, however Medical Records I reviewed the patient's medical records. Lab Data I reviewed the patient's lab results. 03/31/25 16:10 04/01/25 04:09 Radiology Impressions Chest X-Ray 03/31/25 16:03 IMPRESSION: 1. Ill-defined streaky opacities in the left lower lobe which may represent an infiltrate. 2. Hypoventilatory chest. Abdomen Ultrasound 03/31/25 17:59 IMPRESSION: 1. No acute findings sonographically. 2. Cholelithiasis with multiple shadowing gallstones. 3. Hepatomegaly. 4. Large hypoechoic lesion with thick echogenic wall abutting of the right kidney measuring up to 9.3 cm which may represent a complex cyst. This corresponds to the partially calcified mass associated with the right kidney demonstrating long-term stability on prior CT scans of the abdomen and pelvis. Laboratory Results WBC 3.33 10^3/uL (3.29-11.43) 03/31/25 16:10 RBC 3.48 10^6/uL (3.85-5.65) L 03/31/25 16:10 Hgb 11.30 g/dL (11.27-16.99) 03/31/25 16:10 Hct 36.2 % (37-53) L 03/31/25 16:10 MCV 104.0 fl (82-101) H 03/31/25 16:10 MCH 32.5 pg (27-33) 03/31/25 16:10 MCHC 31.2 g/dL (30-55) 03/31/25 16:10 RDW 15.5 % (12.1-15.1) H 03/31/25 16:10 Plt Count 70 10^3/cmm (157-399) L 03/31/25 16:10 MPV 9.8 fL (7.4-10.4) 03/31/25 16:10 Neut % (Auto) 76.9 % 03/31/25 16:10 Lymph % (Auto) 18.9 % 03/31/25 16:10 Lagrange % (Auto) 3.0 % 03/31/25 16:10 Eos % (Auto) 0.3 % 03/31/25 16:10 Baso % (Auto) 0.3 % 03/31/25 16:10 Neut # (Auto) 2.56 10^3/uL (1.8-7.7) 03/31/25 16:10 Lymph # (Auto) 0.6 10^3/uL (0.8-4.8) L 03/31/25 16:10 [place] # (Auto) 0.1 10^3/uL (0.2-0.9) L 03/31/25 16:10 Eos # (Auto) 0.0 10^3/uL (0.0-0.8) 03/31/25 16:10 Baso # (Auto) 0.0 10^3/uL (0.0-0.1) 03/31/25 16:10 Nucleated RBC % (auto) 0 % 03/31/25 16:10 Nucleated RBCs # 0.0 /100WBC 03/31/25 16:10 Sodium 140 mmol/L (136-145) 03/31/25 16:10 Potassium 4.0 mmol/L (3.5-5.1) 03/31/25 16:10 Chloride 98 mmol/L (98-107) 03/31/25 16:10 Carbon Dioxide 26 mmol/L (22-29) 03/31/25 16:10 Anion Gap 20.0 (5-19) H 03/31/25 16:10 BUN 9 mg/dL (8-23) 03/31/25 16:10 Creatinine 2.0 mg/dL (0.7-1.2) H 03/31/25 16:10 GFR Calculation Not Reportable 03/31/25 16:10 Glucose 95 mg/dL (65-115) 03/31/25 16:10 POC Glucose 90 mg/dL (70-110) 03/31/25 16:24 Calculated Osmolality 288 mOsm/kg (285-295) 03/31/25 16:10 Lactic Acid 3.5 mmol/L (0.5-2.2) H 03/31/25 16:10 Lactic Acid (Sepsis) 3.0 mmol/L (0.5-2.2) H 03/31/25 17:58 Calcium 9.1 mg/dL (8.5-10.5) 03/31/25 16:10 Magnesium 1.6 mg/dL (1.7-2.3) L 03/31/25 16:10 Total Bilirubin 2.7 mg/dL (0.15-1.2) H 03/31/25 16:10 AST 10 U/L (0-40) 03/31/25 16:10 ALT 6 U/L (0-41) 03/31/25 16:10 Alkaline Phosphatase 122 U/L (40-130) 03/31/25 16:10 Ammonia 42 umol/L (16-60) 03/31/25 16:10 Creatine Kinase 82 U/L (39-308) 03/31/25 16:10 Troponin T Baseline 219 ng/L (0-15) H* 03/31/25 16:10 Troponin T 120 Minute 214.4 ng/L (0-15) H 03/31/25 17:58 Delta Troponin T -4.6 ABS# (0-10) L 03/31/25 17:58 C-Reactive Protein 6.4 mg/L (0.0-4.9) H 03/31/25 16:10 NT-Pro-B Natriuret Pep 52020 pg/mL (0-450) H 03/31/25 16:10 Total Protein 6.1 g/dL (6.6-8.7) L 03/31/25 16:10 Albumin 4.4 g/dL (3.5-5.2) 03/31/25 16:10 Globulin 1.7 g/dL (1.3-4.6) 03/31/25 16:10 Procalcitonin 7.01 ng/mL (0-0.5) H 03/31/25 16:10 Influenza A (PCR) Negative (Negative) 03/31/25 16:33 Influenza Type B (PCR) Negative (Negative) 03/31/25 16:33 RSV (PCR) Negative (Negative) 03/31/25 16:33 SARS-CoV-2 (PCR) Negative (Negative) 03/31/25 16:33 All radiology interpretation(s) finalized by discharge ED provider radiology interpretation(s): Ultrasound verified for no acute findings. Again believe the bilirubin elevation is secondary to sepsis/lactic acidosis. Additional findings can be followed up outpatient. EKG Data EKG 1: Interpretation: Sinus tachycardia rate of 111, paced, no ST segment elevation Discharge Plan Discharge Patient Disposition: Admitted As Inpatient Admit Provider: Vika Go Clinical Impression: Acute respiratory failure with hypoxia, Acidosis, lactic, Elevated bilirubin, Elevated troponin Pneumonia Qualifiers: Pneumonia type: due to unspecified organism Laterality: left Lung location: lower lobe of lung Qualified Code(s): J18.9 - Pneumonia, unspecified organism Sepsis Qualifiers: Sepsis type: sepsis due to unspecified organism Sepsis acute organ dysfunction status: with acute organ dysfunction Severe sepsis acute organ dysfunction type: acute liver failure Hepatic coma status: without hepatic coma Severe sepsis shock status: without septic shock Qualified Code(s): A41.9 - Sepsis, unspecified organism Condition: Stable Discharge Diet: Low Salt Discharge Activity: Resume usual activity Coding Level of Care Code ED Controls Design Engineer for Jordin Moreno
--- NOTE | 2025-03-31 16:03 | XRR_ITS ---
PROCEDURE INFORMATION: Exam: XR Chest Exam date and time: 03/31/2025 4:18 PM Age: 80 years old Clinical indication: Shortness of breath and wheezing; Additional info: Short of breath, weakness TECHNIQUE: Imaging protocol: Radiologic exam of the chest. Views: 1 view. COMPARISON: CR XR chest 2V* [id number] 02/01/2025 6:15 PM FINDINGS: Tubes, catheters and devices: 4-lead AICD device in place. Lungs: Ill-defined streaky opacities in the left lower lobe which may represent an infiltrate. Hypoventilatory chest. Pleural spaces: No pleural effusions or pneumothorax. Heart/Mediastinum: Heart size within normal limits. No pulmonary vascular congestion. Bones/joints: No significant osseous lesion. No fractures. Sternotomy wires. XR/XR chest 1V portable [id number] IMPRESSION: 1. Ill-defined streaky opacities in the left lower lobe which may represent an infiltrate. 2. Hypoventilatory chest.
[2025-03-31 16:24] LABS: Hematocrit 36.2 % (37-53); Hemoglobin 11.30 g/dL (11.27-16.99); Mean Corpuscular HGB Conc 31.2 g/dL (30-55); Mean Corpuscular Hemoglobin 32.5 pg (27-33); Mean Corpuscular Volume 104.0 fl (82-101); Nucleated Red Blood Cells % 0 %; Platelet Count 70 10^3/cmm (157-399); Red Blood Count 3.48 10^6/uL (3.85-5.65); White Blood Count 3.33 10^3/uL (3.29-11.43)
[2025-03-31 16:36] LABS: Ammonia 42 umol/L (16-60)
[2025-03-31 16:53] LABS: Lactic Sepsis W/Reflex 3.5 mmol/L (0.5-2.2)
[2025-03-31 17:03] LABS: Procalcitonin 7.01 ng/mL (0-0.5)
[2025-03-31 17:05] LABS: Troponin(5th) Baseline 219 ng/L (0-15)
[2025-03-31 17:16] LABS: Alanine Aminotransferase 6 U/L (0-41); Albumin Level 4.4 g/dL (3.5-5.2); Alkaline Phosphatase 122 U/L (40-130); Anion Gap 20.0 (5-19); Aspartate Amino Transferase 10 U/L (0-40); Blood Urea Nitrogen 9 mg/dL (8-23); Calcium 9.1 mg/dL (8.5-10.5); Carbon Dioxide 26 mmol/L (22-29); Chloride 98 mmol/L (98-107); Creatinine Clr Calc Pharmacy 33.6020; Globulin 1.7 g/dL (1.3-4.6); Glucose 95 mg/dL (65-115); Magnesium 1.6 mg/dL (1.7-2.3); Osmolality Calculated 288 mOsm/kg (285-295); Potassium 4.0 mmol/L (3.5-5.1); Sodium 140 mmol/L (136-145); Total Protein 6.1 g/dL (6.6-8.7)
[2025-03-31 17:23] LABS: Respiratory Syncytial Virus Ce NEGATIVE (Negative); SARS-CoV-2 PCR NEGATIVE (Negative)
[2025-03-31 17:23] LABS: NT Pro B Type Natriuretic Pept 33273 pg/mL (0-450)
[2025-03-31] MEDS: doxycycline 100 MG in sodium chloride 0.9% (plus) 100 ML IV (17:28)
[2025-03-31] MEDS: cefepime 1,000 mg SDV 1000 MG IVP (17:30)
--- NOTE | 2025-03-31 17:59 | USR_ITS ---
PROCEDURE INFORMATION: Exam: US Abdomen, Limited; Right Upper Quadrant Exam date and time: 03/31/2025 6:14 PM Age: 80 years old Clinical indication: Abnormal findings; Abnormal lab test; Other: Bili; Prior surgery; Surgery date: 6+ months; Surgery type: Appy; Additional info: Elevated procalcitonin, elevated bilirubin TECHNIQUE: Imaging protocol: Real time ultrasound of the abdomen with image documentation. Limited exam focused on the right upper quadrant. COMPARISON: US renal BI* [id number] 12/22/2023 10:01 AM FINDINGS: Liver: Hepatomegaly with the liver measuring 19.5 cm in length. Gallbladder: Multiple shadowing gallstones. There is no gallbladder wall thickening. Biliary ducts: Normal. No stones. No dilation. Pancreas: Not well visualized. Right kidney: Right kidney measures 10.1 x 4.4 x 4.5 cm. Large hypoechoic lesion with thick echogenic wall abutting of the right kidney measuring 9.3 x 7.5 x 7.5 cm which may represent a complex cyst. Aorta: Unremarkable. Inferior vena cava: Unremarkable US/US abdomen limited [id number] IMPRESSION: 1. No acute findings sonographically. 2. Cholelithiasis with multiple shadowing gallstones. 3. Hepatomegaly. 4. Large hypoechoic lesion with thick echogenic wall abutting of the right kidney measuring up to 9.3 cm which may represent a complex cyst. This corresponds to the partially calcified mass associated with the right kidney demonstrating long-term stability on prior CT scans of the abdomen and pelvis.
[2025-03-31 18:04] LABS: Reflex Lactate Order REFLEX LACTIC ORDERD
--- NOTE | 2025-03-31 18:34 | PM.HP ---
Providers/Chief Complaint Admitting Physician: Emy Go MD Primary Care Provider: Paula Sandoval MD Chief Complaint: Generalized weakness History of Present Illness Valente Renae is a 80 year old male with ESRD on HD TTS, renal osteodystrophy, CLL, hypertension, hyperlipidemia, type 2 diabetes mellitus, CAD status post CABG and PCI, sick sinus syndrome with dual-chamber pacemaker, bilateral carotid stenosis, and BPH presenting with generalized weakness. He completed hemodialysis today and developed significant generalized weakness. He was hypoxic and required 2 L/min O2. He reported cough. He has had intermittent nausea in the past few days. He had 3.5 L of fluid removed today. Typically it is around 3 L. His Tmax was 99.8 in the ED. He was tachycardic. He is currently on 2 L/min O2. His WBC was normal but lactic acid and procalcitonin were elevated. His bilirubin was also elevated but rest of LFTs were normal. Viral swabs were negative. Chest x-ray showed ill-defined streaky opacities in the left lower lobe which may represent an infiltrate. RUQ ultrasound is pending. Review of Systems General: Reports: 10 or more systems reviewed and unremarkable except in HPI and below Medications/Allergies Home Medications ?Medication ?Instructions ?Recorded ?Confirmed ?Last Taken ?Type docusate sodium 100 mg capsule 100 mg PO DAILY PRN Constipation 12/02/19 03/31/25 01/12/25 History (Colace) cholecalciferol (vitamin D3) 25 50 mcg PO DAILY 12/14/20 03/31/25 03/31/25 History mcg (1,000 unit) capsule diclofenac sodium 1 % topical gel 4 g topical QID PRN Pain 05/02/21 03/31/25 Unknown History insulin regular human 100 unit/mL See Rx Instructions .Route 05/02/21 03/31/25 03/31/25 History injection solution (Novolin R .COMPLEX see pharmacy comments Regular U-100 Insulin) loratadine 10 mg tablet (Claritin) 10 mg PO DAILY 05/02/21 03/31/25 03/31/25 History tamsulosin 0.4 mg capsule 0.8 mg PO QPM 10/18/21 03/31/25 03/30/25 History fluticasone propionate 50 2 spray intranasal DAILY PRN 07/16/22 03/31/25 Unknown History mcg/actuation nasal allergies spray,suspension (Flonase Allergy Relief) finasteride 5 mg tablet 5 mg PO DAILY 11/20/22 03/31/25 03/31/25 History insulin glargine 100 unit/mL (3 50 unit SUBCUT QA 11/20/22 03/31/25 03/31/25 History mL) subcutaneous pen sevelamer carbonate 800 mg tablet 800 mg PO BID 05/12/24 03/31/25 03/31/25 History atorvastatin 80 mg tablet 80 mg PO QPM 01/13/25 03/31/25 01/12/25 18:00 History carvedilol 6.25 mg tablet See Rx Instructions .Route .COMPLEX 01/13/25 03/31/25 03/30/25 History folic acid 1 mg tablet 1 mg PO DAILY 01/13/25 03/31/25 03/31/25 History furosemide 80 mg tablet 80 mg PO QAM 01/13/25 03/31/25 03/30/25 History isosorbide mononitrate 30 mg 30 mg PO QA 01/13/25 03/31/25 03/31/25 History tablet,extended release 24 hr nitroglycerin 0.4 mg sublingual 0.4 mg sublingual Q5M PRN heart 01/13/25 03/31/25 Unknown History tablet issues pantoprazole 40 mg tablet,delayed 40 mg PO DAILY 01/13/25 03/31/25 03/31/25 History release pirtobrutinib 50 mg tablet 50 mg PO DAILY 01/13/25 03/31/25 Unknown History Allergies Allergy/AdvReac Type Severity Reaction Status Date / Time allopurinol Allergy ALGY-Rash Verified 02/01/25 16:51 Iodinated Contrast Media Allergy ALGY-Hives Verified 02/01/25 16:51 levofloxacin (From Levaquin) Allergy ADR-Confusi Verified 02/01/25 16:51 on metformin Allergy ADR-Fatigue Verified 02/01/25 16:51 d PFSH Acute PFSH: Medical History (Updated 03/31/25 @ 18:54 by Vika Go MD) Hyperuricemia History of COVID-19 (~12/2020) Anemia, unspecified Complex renal cyst BPH loc w urin obs/LUTS Diabetes HTN (hypertension) ASHD (arteriosclerotic heart disease) Dyslipidemia CKD (chronic kidney disease) CLL (chronic lymphocytic leukemia) Carotid stenosis, bilateral Surgical History H/O removal of testicle S/P appendectomy S/P CABG (coronary artery bypass graft) S/P PTCA (percutaneous transluminal coronary angioplasty) Status cardiac pacemaker Family History Mother , in her 70's Diabetes CAD (coronary artery disease) Father , at age 69 CAD (coronary artery disease) Hypertension Other Cancer Chronic kidney disease (CKD) Stroke Suicide Denies family history of Clotting disorder Dementia Hyperlipidemia Psychiatric illness Anesthesia complication Bleeding disorder Lung disease Social History Smoking and tobacco/nicotine status: former use of tobacco/nicotine Quit status (tobacco/nicotine): has quit using Year quit tobacco: 1989 Alcohol intake: never Substance/Drug Use: never Household members: spouse Marital status: Current occupational status: retired Vitals/I&O/Wt Last Vital Signs Temp 99.8 F H 03/31/25 15:54 Pulse 105 H 03/31/25 18:00 Resp 29 H 03/31/25 16:50 BP 111/37 03/31/25 18:00 Pulse Ox 98 03/31/25 18:00 O2 Del Method Nasal Cannula 03/31/25 15:54 O2 Flow Rate 2 03/31/25 15:54 Weight last 48 hrs Weight 92.079 kg Physical Exam Narrative: GEN: Alert, no acute distress HEENT: Normocephalic, atraumatic, PERRLA, no scleral icterus Neck: Supple Respiratory: No respiratory distress, clear to auscultation bilaterally Cardio: Tachycardic, regular rhythm, no murmur, no JVD Abdomen: Right upper quadrant tenderness, soft, no guarding or rebound, normoactive bowel sounds Extremity: Warm, no edema Skin: No rash or lesions Psych: Cooperative Data 03/31/25 16:10 03/31/25 16:10 Micro: Microbiology 03/31/25 16:12 Blood Culture - Preliminary Blood SPECIMEN COLLECTED 03/31/25 16:10 Blood Culture - Preliminary Blood SPECIMEN COLLECTED A&P Assessment and plan 1. Sepsis: Sepsis present on admission with tachycardia, hypoxia, and elevated lactic acid He has ESRD and received HD today (2.5 L) Given 1.5 L normal saline bolus in the ED Chest x-ray shows left lower lobe pneumonia Also has elevated bilirubin and right upper quadrant abdominal pain ? Continue IV antibiotics?follow-up urine cultures 2. Left lower lobe pneumonia: Hypoxic on room air and currently on 2 L/min O2 Viral swabs negative Monitor O2 sats and wean oxygen as tolerated Continue antibiotics 3. End stage renal disease on dialysis: On HD TTS 3.5 L fluid removed today 4. CLL (chronic lymphocytic leukemia): B-cell type, on protobrutinib; will hold for now 5. Elevated bilirubin: RUQ tenderness on exam Follow-up RUQ ultrasound 6. Elevated troponin: Typically has troponin elevation He has ESRD and known CAD Trend troponin, telemetry monitoring 7. Coronary artery disease: Status post CABG and PCI 8. S/P CABG (coronary artery bypass graft): 9. S/P PTCA (percutaneous transluminal coronary angioplasty): 10. Dyslipidemia: Atorvastatin 11. Thrombocytopenia: Chronic, stable 12. Sick sinus syndrome: Dual-chamber pacemaker in place 13. Status cardiac pacemaker: 14. HTN (hypertension): Monitor blood pressure PDMP PDMP Reviewed: Not Reviewed Attestations Medical Necessity Statement*: He needs initial hospitalization for IV antibiotics, telemetry monitoring, also oxygen monitoring Coding Level of Care Code Acute Code for [facility] Diagnoses Sepsis A41.9 Left lower lobe pneumonia J18.9 End stage renal disease on dialysis N18.6; Z99.2 CLL (chronic lymphocytic leukemia) C91.10 Elevated bilirubin R17 Elevated troponin R79.89 Coronary artery disease I25.10 S/P CABG (coronary artery bypass graft) Z95.1 S/P PTCA (percutaneous transluminal coronary angioplasty) Z98.61 Dyslipidemia E78.5 Thrombocytopenia D69.6 Sick sinus syndrome I49.5 Status cardiac pacemaker Z95.0 HTN (hypertension) I10
--- NOTE | 2025-03-31 18:45 | PC.NURSE ---
Per family pt only urinates once a day, pt will try to urinate a little sample but may not be able to. Pt has a urinal at bedside.
--- NOTE | 2025-03-31 19:02 | ECG_ITS ---
[facility] 2025-03-31 Pat Name: Valente Renae Department: Room: Gender: Male [employer] Functional Tester: : 1945 Requested By: Litzy Welch Order Number: [id number] Helen MD: DEIDRE GROSSMAN Measurements Intervals [place] Rate: 100 P: 49 MN: 161 QRS: 263 QRSD: 144 T: 84 QT: 396 QTc: 512 Interpretive Statements ELECTRONIC VENTRICULAR PACEMAKER ABNORMAL RHYTHM ECG Compared to ECG 03/31/2025 16:00:40 No significant changes Electronically Signed On 04-03-2025 23:29:17 CDT by DEIDRE GROSSMAN [email or web address]
[2025-03-31 19:10] LABS: Troponin 5 2HR Delta -4.6 ABS# (0-10)
[2025-03-31 19:11] LABS: Troponin 5 2HR 214.4 ng/L (0-15)
[2025-03-31] MEDS: magnesium sulfate premix 2 GM/50 ML PIGGYBACK IV (19:22)
[2025-03-31 19:31] LABS: Lactic Acid level (Lactate) 3.0 mmol/L (0.5-2.2)
--- NOTE | 2025-03-31 21:59 | ECG_ITS ---
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
[2025-03-31 22:56] LABS: Troponin 5 6HR 238.4 ng/L (0-15); Troponin 5 6HR Delta 19.4 ng/L (0-12)
[2025-04-01] VITALS (8 sets, daily range): BP systolic 102–127; BP diastolic 56–68; PULSE 64–71; RESP 16–18; TEMP 36.3–36.6; O2SAT 93–97
[2025-04-01] MEDS: piperacillin-tazobactam 4.5 GM in sodium chloride 0.9% (plus) 50 ML IV ×2 (00:41→05:39)
[2025-04-01 05:09] LABS: Alanine Aminotransferase 6 U/L (0-41); Albumin Level 3.7 g/dL (3.5-5.2); Alkaline Phosphatase 99 U/L (40-130); Anion Gap 18.6 (5-19); Aspartate Amino Transferase 11 U/L (0-40); Blood Urea Nitrogen 16 mg/dL (8-23); Calcium 8.7 mg/dL (8.5-10.5); Carbon Dioxide 24 mmol/L (22-29); Chloride 99 mmol/L (98-107); Creatinine Clr Calc Pharmacy 23.1596; Globulin 2.0 g/dL (1.3-4.6); Glucose 161 mg/dL (65-115); Magnesium 2.0 mg/dL (1.7-2.3); Osmolality Calculated 289 mOsm/kg (285-295); Potassium 4.6 mmol/L (3.5-5.1); Sodium 137 mmol/L (136-145); Total Protein 5.7 g/dL (6.6-8.7)
--- NOTE | 2025-04-01 08:00 | P.PN_ITS ---
Subjective 2 Subjective: He is doing better this morning. However he still has a cough and feels short of breath. He is still on oxygen (2 L/min O2). RUQ ultrasound showed gallstones but no cholecystitis. He is due for hemodialysis tomorrow Medications: Reviewed: Yes Vitals/I&O/Wt Last Vital Signs Temp 97.9 F 04/01/25 03:48 Pulse 70 04/01/25 07:58 Resp 16 04/01/25 07:58 BP 107/65 04/01/25 07:58 Pulse Ox 97 04/01/25 07:58 O2 Del Method Nasal Cannula 04/01/25 07:58 O2 Flow Rate 2 04/01/25 07:37 03/31/25 04/01/25 04/01/25 22:59 06:59 14:59 Intake Total 1150 / 1150 100 / 1250 Output Total 100 / 100 Balance 1050 / 1050 100 / 1150 Weight last 48 hrs Weight 98.883 kg Weight 99.019 kg Weight 92.079 kg Physical Exam 2 Narrative: GEN: Alert, no acute distress HEENT: Normocephalic, atraumatic, PERRLA, no scleral icterus Neck: Supple Respiratory: No respiratory distress, clear to auscultation bilaterally Cardio: Tachycardic, regular rhythm, no murmur, no JVD Abdomen: Soft, nontender, no guarding or rebound, normoactive bowel sounds Extremity: Warm, no edema Skin: No rash or lesions Psych: Cooperative Data 03/31/25 16:10 04/01/25 04:09 Micro: Microbiology 03/31/25 16:12 Blood Culture - Preliminary Blood SPECIMEN COLLECTED 03/31/25 16:10 Blood Culture - Preliminary Blood SPECIMEN COLLECTED A&P Assessment and plan 1. Sepsis: Sepsis present on admission with tachycardia, hypoxia, and elevated lactic acid Received 1.5 L normal saline bolus in the ED Chest x-ray shows left lower lobe pneumonia Follow-up blood culture 2. Left lower lobe pneumonia: Currently on 2 L/min O2, no home oxygen Viral swabs negative Ceftriaxone and doxycycline Monitor O2 sats and wean oxygen as tolerated Continue antibiotics 3. End stage renal disease on dialysis: On HD TTS Will consult nephrology for HD tomorrow 4. CLL (chronic lymphocytic leukemia): B-cell type, on protobrutinib; will hold for now 5. Elevated bilirubin: Improving RUQ ultrasound showed gallstones but no evidence of cholecystitis. No biliary ductal dilatation. 6. Elevated troponin: Typically has troponin elevation He has ESRD and known CAD Troponin stable 7. Coronary artery disease: Status post CABG and PCI 8. S/P CABG (coronary artery bypass graft): 9. S/P PTCA (percutaneous transluminal coronary angioplasty): 10. Dyslipidemia: Atorvastatin 11. Thrombocytopenia: Chronic, stable 12. Sick sinus syndrome: Dual-chamber pacemaker in place 13. Status cardiac pacemaker: 14. HTN (hypertension): BP stable, monitor blood pressure PDMP PDMP Reviewed: Not Reviewed Attestations 2 Medical Necessity Statement*: He requires continued hospitalization for IV antibiotics and O2 monitoring. Coding Level of Care Code Acute Code for [facility] Diagnoses Sepsis A41.9; R65.20; K72.00 Left lower lobe pneumonia J18.9 End stage renal disease on dialysis N18.6; Z99.2 CLL (chronic lymphocytic leukemia) C91.10 Elevated bilirubin R17 Elevated troponin R79.89 Coronary artery disease I25.10 S/P CABG (coronary artery bypass graft) Z95.1 S/P PTCA (percutaneous transluminal coronary angioplasty) Z98.61 Dyslipidemia E78.5 Thrombocytopenia D69.6 Sick sinus syndrome I49.5 Status cardiac pacemaker Z95.0 HTN (hypertension) I10
[2025-04-01] MEDS: cefTRIAXone 1,000 mg SDV 1000 MG IVP (09:28)
[2025-04-01] MEDS: ondansetron 2 mg/ML SDV 2 mL 4 MG IVP ×2 (09:29→19:17)
--- NOTE | 2025-04-01 13:51 | PC.SOCIAL ---
IMM Update pg 2 of IMM Updated and reviewed w/ patient. Copy provided and copy dated, initialed and placed in chart.
--- NOTE | 2025-04-01 14:39 | PM.CONSULT ---
Providers/Reason For Consult Consulting Physician/Specialty*: kommana/Nephrology Reason for Consult*: esrd Attending Physician: Vika Go MD Primary Care Provider: Paula Sandoval MD History of Present Illness History of Present Illness Valente Renae is a 80 year old male Patient is 80-year-old male with past medical history of end-stage renal disease on dialysis per TTS schedule, CLL, hypertension, dyslipidemia, type 2 diabetes, coronary artery disease sick sinus syndrome with pacemaker, carotid stenosis and BPH presented to the hospital due to generalized weakness was noted to be tachycardic with low-grade fevers. Chest x-ray showed possible pneumonia. Lab data reviewed. Patient is admitted for sepsis Review of Systems Narrative: negative Medications/Allergies Home Medications ?Medication ?Instructions ?Recorded ?Confirmed ?Last Taken ?Type docusate sodium 100 mg capsule 100 mg PO DAILY PRN Constipation 12/02/19 03/31/25 01/12/25 History (Colace) cholecalciferol (vitamin D3) 25 50 mcg PO DAILY 12/14/20 03/31/25 03/31/25 History mcg (1,000 unit) capsule diclofenac sodium 1 % topical gel 4 g topical QID PRN Pain 05/02/21 03/31/25 Unknown History insulin regular human 100 unit/mL See Rx Instructions .Route 05/02/21 03/31/25 03/31/25 History injection solution (Novolin R .COMPLEX see pharmacy comments Regular U-100 Insulin) loratadine 10 mg tablet (Claritin) 10 mg PO DAILY 05/02/21 03/31/25 03/31/25 History tamsulosin 0.4 mg capsule 0.8 mg PO QPM 10/18/21 03/31/25 03/30/25 History fluticasone propionate 50 2 spray intranasal DAILY PRN 07/16/22 03/31/25 Unknown History mcg/actuation nasal allergies spray,suspension (Flonase Allergy Relief) finasteride 5 mg tablet 5 mg PO DAILY 11/20/22 03/31/25 03/31/25 History insulin glargine 100 unit/mL (3 50 unit SUBCUT QAM 11/20/22 03/31/25 03/31/25 History mL) subcutaneous pen sevelamer carbonate 800 mg tablet 800 mg PO BID 05/12/24 03/31/25 03/31/25 History atorvastatin 80 mg tablet 80 mg PO QPM 01/13/25 03/31/25 01/12/25 18:00 History carvedilol 6.25 mg tablet See Rx Instructions .Route .COMPLEX 01/13/25 03/31/25 03/30/25 History folic acid 1 mg tablet 1 mg PO DAILY 01/13/25 03/31/25 03/31/25 History furosemide 80 mg tablet 80 mg PO QAM 01/13/25 03/31/25 03/30/25 History isosorbide mononitrate 30 mg 30 mg PO QAM 01/13/25 03/31/25 03/31/25 History tablet,extended release 24 hr nitroglycerin 0.4 mg sublingual 0.4 mg sublingual Q5M PRN heart 01/13/25 03/31/25 Unknown History tablet issues pantoprazole 40 mg tablet,delayed 40 mg PO DAILY 01/13/25 03/31/25 03/31/25 History release pirtobrutinib 50 mg tablet 50 mg PO DAILY 01/13/25 03/31/25 Unknown History Allergies Allergy/AdvReac Type Severity Reaction Status Date / Time allopurinol Allergy ALGY-Rash Verified 02/01/25 16:51 Iodinated Contrast Media Allergy ALGY-Hives Verified 02/01/25 16:51 levofloxacin (From Levaquin) Allergy ADR-Confusi Verified 02/01/25 16:51 on metformin Allergy ADR-Fatigue Verified 02/01/25 16:51 d Current Medications Generic Name Dose Route Start Last Admin Trade Name Freq PRN Reason Stop Dose Admin Carvedilol 3.125 mg 04/01/25 05:00 04/01/25 05:25 Carvedilol 3.125 Mg Tablet PO 3.125 mg DAILY DIONTE Administration Ceftriaxone Sodium 1,000 mg 04/01/25 08:00 04/01/25 09:28 Ceftriaxone 1,000 Mg Sdv IVP 1,000 mg Q24H DIONTE Administration Protocol Docusate Sodium 100 mg 03/31/25 19:55 04/01/25 09:28 Docusate Sodium 100 Mg Capsule PO 100 mg DAILY PRN Administration CONSTIPATION Doxycycline Monohydrate 100 mg 04/01/25 08:00 04/01/25 09:28 Doxycycline 100 Mg Tablet PO 100 mg BID DIONTE Administration Protocol Finasteride 5 mg 04/01/25 05:00 04/01/25 05:26 Finasteride 5 Mg Tablet PO 5 mg DAILY DIONTE Administration Folic Acid 1 mg 04/01/25 05:00 04/01/25 05:26 Folic Acid 1 Mg Tablet PO 1 mg DAILY DIONTE Administration Insulin Human Lispro 0 unit 03/31/25 21:00 04/01/25 11:33 Insulin Lispro 100 Unit/1 Ml SUBCUT 6 unit WM&BEDTIME DIONTE Administration Protocol Loratadine 10 mg 04/01/25 05:00 04/01/25 05:26 Loratadine 10 Mg Tablet PO 10 mg DAILY DIONTE Administration Ondansetron HCl 4 mg 03/31/25 19:55 04/01/25 09:29 Ondansetron 2 Mg/Ml Sdv 2 Ml IVP 4 mg Q8H PRN Administration vomiting, or N/V if npo Pantoprazole Sodium 40 mg 04/01/25 05:00 04/01/25 05:[address] 40 Mg Tablet PO 40 mg DAILY DIONTE Administration Sevelamer Carbonate 800 mg 04/01/25 05:00 04/01/25 05:27 Sevelamer 800 Mg Tablet PO 800 mg BID DIONTE Administration Vitamin D 1,000 unit 04/01/25 05:00 04/01/25 05:26 Cholecalciferol (Vitamin D3) 1,000 Unit Tablet PO 1,000 unit DAILY DIONTE Administration PFSH Acute PFSH: Medical History (Updated 04/01/25 @ 11:53 by Vika Go MD) Hyperuricemia History of COVID-19 (~12/2020) Anemia, unspecified Complex renal cyst BPH loc w urin obs/LUTS Diabetes HTN (hypertension) ASHD (arteriosclerotic heart disease) Dyslipidemia CKD (chronic kidney disease) CLL (chronic lymphocytic leukemia) Carotid stenosis, bilateral Surgical History H/O removal of testicle S/P appendectomy S/P CABG (coronary artery bypass graft) S/P PTCA (percutaneous transluminal coronary angioplasty) Status cardiac pacemaker Family History Mother , in her 70's Diabetes CAD (coronary artery disease) Father , at age 69 CAD (coronary artery disease) Hypertension Other Cancer Chronic kidney disease (CKD) Stroke Suicide Denies family history of Clotting disorder Dementia Hyperlipidemia Psychiatric illness Anesthesia complication Bleeding disorder Lung disease Social History Smoking and tobacco/nicotine status: former use of tobacco/nicotine Quit status (tobacco/nicotine): has quit using Year quit tobacco: 1989 Alcohol intake: never Substance/Drug Use: never Household members: spouse Marital status: Current occupational status: retired Vitals/I&O/Wt Last Vital Signs Temp 97.6 F 04/01/25 11:34 Pulse 70 04/01/25 11:34 Resp 18 04/01/25 11:34 BP 107/68 04/01/25 11:34 Pulse Ox 95 04/01/25 11:34 O2 Del Method Nasal Cannula 04/01/25 11:34 O2 Flow Rate 2 04/01/25 07:37 03/31/25 04/01/25 04/01/25 22:59 06:59 14:59 Intake Total 1150 / 1150 100 / 1250 360 / 360 Output Total 100 / 100 Balance 1050 / 1050 100 / 1150 360 / 360 Weight last 48 hrs Weight 98.883 kg Weight 99.019 kg Weight 92.079 kg Physical Exam Narrative: Patient is awake alert, no distress No JVD PERRLA No acute distress S1-S2 regular rate and rhythm Lungs with decreased breath sounds bilaterally Abdomen soft nontender EXTR no pedal edema Skin no rash Data 03/31/25 16:10 04/01/25 04:09 Micro: Microbiology 03/31/25 16:12 Blood Culture - Preliminary Blood SPECIMEN COLLECTED 03/31/25 16:10 Blood Culture - Preliminary Blood SPECIMEN COLLECTED A&P Assessment and plan 1. End stage renal disease on dialysis: Plan: 1. ESRD: On TTS schedule, last dialysis was on , next dialysis planned for tomorrow, ultrafiltration as tolerated 2. Sepsis in the setting of possible pneumonia, antibiotics per primary team 3. History of CLL 4. History of coronary artery disease 5. Anemia: Hemoglobin 11.3, monitor Patient evaluated using audiovisual cart. Time spent 40 minutes. PDMP PDMP Reviewed: Not Reviewed Consult Attestations Medical Necessity Statement: Per medicine team Coding Level of Care Code Acute Code for [facility] Diagnoses End stage renal disease on dialysis N18.6; Z99.2
[2025-04-02] VITALS (8 sets, daily range): BP systolic 110–148; BP diastolic 56–82; PULSE 67–90; RESP 16–20; TEMP 36.4–36.8; O2SAT 90–93
[2025-04-02 04:32] LABS: Hematocrit 34.1 % (37-53); Hemoglobin 10.60 g/dL (11.27-16.99); Mean Corpuscular HGB Conc 31.1 g/dL (30-55); Mean Corpuscular Hemoglobin 32.1 pg (27-33); Mean Corpuscular Volume 103.3 fl (82-101); Platelet Count 66 10^3/cmm (157-399); Red Blood Count 3.30 10^6/uL (3.85-5.65); White Blood Count 10.93 10^3/uL (3.29-11.43)
[2025-04-02 05:07] LABS: Hepatitis B Surface Antigen Non-Reactive (Nonreactive)
[2025-04-02 05:08] LABS: Anion Gap 18.1 (5-19); Blood Urea Nitrogen 25 mg/dL (8-23); Calcium 8.9 mg/dL (8.5-10.5); Carbon Dioxide 25 mmol/L (22-29); Chloride 97 mmol/L (98-107); Glucose 76 mg/dL (65-115); Osmolality Calculated 285 mOsm/kg (285-295); Potassium 4.1 mmol/L (3.5-5.1); Sodium 136 mmol/L (136-145)
[2025-04-02 05:14] LABS: Creatinine Clr Calc Pharmacy 17.7205
[2025-04-02 05:36] LABS: Slide Review Slide Review Perform
[2025-04-02 07:03] LABS: Absolute Segmented Neutrophil 2.7 10/cmm (1.6-7.1); Atypical Lymphs 7.0 % (0-5); Band Neutrophils Absolute 0.5 10^3/cmm (0.0-1.2); Total Cells Counted 100 (0-100)
[2025-04-02 07:07] LABS: Poikilocytosis Trace
[2025-04-02 08:45] LABS: Procalcitonin 52.11 ng/mL (0-0.5)
--- NOTE | 2025-04-02 11:26 | PM.DCS ---
Discharge Providers Date of Admission: 03/31/25 19:36 Date of Discharge: April 02, 2025 Attending Provider at Admission: Vika Go MD Attending Provider at Discharge: Vika Go MD Consults: Inpatient consult to nephrology Primary Care Provider: Paula Sandoval MD Diagnoses at Discharge Discharge Diagnosis 1. Sepsis: 2. Left lower lobe pneumonia: 3. End stage renal disease on dialysis: 4. CLL (chronic lymphocytic leukemia): 5. Elevated bilirubin: 6. Elevated troponin: 7. ASHD (arteriosclerotic heart disease): 8. S/P CABG (coronary artery bypass graft): 9. Sick sinus syndrome: 10. Status cardiac pacemaker: 11. Dyslipidemia: 12. HTN (hypertension): 13. Generalized weakness: Reason for Visit Reason for Visit: Generalized weakness Brief History: This is a 80 year old male with ESRD on HD TTS, renal osteodystrophy, CLL, hypertension, hyperlipidemia, type 2 diabetes mellitus, CAD status post CABG and PCI, sick sinus syndrome with dual-chamber pacemaker, bilateral carotid stenosis, and BPH presenting with generalized weakness. He completed hemodialysis on day of admission and developed significant generalized weakness. He was hypoxic and required 2 L/min O2. He had 3.5 L of fluid removed today but typically only has 3 L removed. Chest x-ray showed ill-defined streaky opacities in the left lower lobe which may represent an infiltrate. Hospital Course Hospital Course He met sepsis criteria on admission which is resolved. He was treated with antibiotics for his pneumonia. He is now saturating well on room air. He was discharged home on oral antibiotics. He reports having significant generalized weakness after hemodialysis. Patient and his declined home therapy or home health at time of discharge. [facility]. He has CLL and sees oncology. He is on protobrutinib which has been restarted. He had 7 blasts on CBC on day of discharge. He typically has had blast present on previous CBC. He will need to follow-up with his oncologist as an outpatient. He has chronic elevation of his troponin. There was no concern for acute ischemia. His bilirubin has been elevated for several months. Liver ultrasound showed hepatomegaly and cholelithiasis. There was no biliary ductal dilatation. Physical Exam Narrative: GEN: Alert, no acute distress HEENT: Normocephalic, atraumatic, PERRLA, no scleral icterus Neck: Supple Respiratory: No respiratory distress, clear to auscultation bilaterally Cardio: Regular rate and rhythm, no murmur, no JVD Abdomen: Soft, nontender, no guarding or rebound, normoactive bowel sounds Extremity: Warm, no edema Skin: No rash or lesions Psych: Cooperative Discharge Data Studies Completed and Pending Completed Studies During Hospitalization Category Date Time Status XR chest 1V portable [id number] Stat Exams 03/31/25 16:03 Completed US abdomen limited [id number] Stat Ultrasound 03/31/25 17:59 Completed Pending at discharge Category Date Time Status Basic Metabolic Panel AM LABS Lab 04/03/25 04:00 Ordered Blood Culture Stat Lab 03/31/25 16:10 Results CBC Auto Diff [Complete Blood Count w/Auto] AM LABS Lab 04/03/25 04:00 Ordered CBC Auto Diff [Complete Blood Count w/Auto] AM LABS Lab 04/04/25 04:00 Ordered UA w/Reflex to Microscope [Urinalysis] Stat Lab 03/31/25 16:00 Uncollected Radiology Impressions Chest X-Ray 03/31/25 16:03 IMPRESSION: 1. Ill-defined streaky opacities in the left lower lobe which may represent an infiltrate. 2. Hypoventilatory chest. Abdomen Ultrasound 03/31/25 17:59 IMPRESSION: 1. No acute findings sonographically. 2. Cholelithiasis with multiple shadowing gallstones. 3. Hepatomegaly. 4. Large hypoechoic lesion with thick echogenic wall abutting of the right kidney measuring up to 9.3 cm which may represent a complex cyst. This corresponds to the partially calcified mass associated with the right kidney demonstrating long-term stability on prior CT scans of the abdomen and pelvis. Laboratory Results WBC 10.93 10^3/uL (3.29-11.43) 04/02/25 02:00 RBC 3.30 10^6/uL (3.85-5.65) L 04/02/25 02:00 Hgb 10.60 g/dL (11.27-16.99) L 04/02/25 02:00 Hct 34.1 % (37-53) L 04/02/25 02:00 MCV 103.3 fl (82-101) H 04/02/25 02:00 MCH 32.1 pg (27-33) 04/02/25 02:00 MCHC 31.1 g/dL (30-55) 04/02/25 02:00 RDW 15.4 % (12.1-15.1) H 04/02/25 02:00 Plt Count 66 10^3/cmm (157-399) L 04/02/25 02:00 MPV 10.9 fL (7.4-10.4) H 04/02/25 02:00 Neut % (Auto) 76.9 % 03/31/25 16:10 Lymph % (Auto) Not Reportable 04/02/25 02:00 Refugio % (Auto) Not Reportable 04/02/25 02:00 Eos % (Auto) 0.3 % 03/31/25 16:10 Baso % (Auto) 0.3 % 03/31/25 16:10 Neut # (Auto) 2.56 10^3/uL (1.8-7.7) 03/31/25 16:10 Lymph # (Auto) Not Reportable 04/02/25 02:00 Refugio # (Auto) Not Reportable 04/02/25 02:00 Eos # (Auto) 0.0 10^3/uL (0.0-0.8) 03/31/25 16:10 Baso # (Auto) 0.0 10^3/uL (0.0-0.1) 03/31/25 16:10 Nucleated RBC % (auto) 0 % 03/31/25 16:10 Total Counted 100 (0-100) 04/02/25 02:00 Atypical Lymphs % 7.0 % (0-5) H 04/02/25 02:00 Absolute Neutrophils 3.3 10^3/cmm (1.4-6.5) 04/02/25 02:00 Segmented Neutrophils 25 % 04/02/25 02:00 Band Neutrophils 5.0 % 04/02/25 02:00 Absolute Lymphocytes 6.6 10^3/cmm (1.2-3.4) H 04/02/25 02:00 Lymphocytes (Manual) 53 % 04/02/25 02:00 Monocytes (Manual) 1.0 % 04/02/25 02:00 Absolute Monocytes 0.1 10^3/cmm (0.1-0.6) 04/02/25 02:00 Eosinophils (Manual) 2 % 04/02/25 02:00 Absolute Eosinophils 0.2 10^3/cmm (0.0-0.7) 04/02/25 02:00 Basophils (Manual) 0.0 % 04/02/25 02:00 Absolute Basophils 0.0 10^3/cmm (0.0-0.2) 04/02/25 02:00 Nucleated RBCs # 0.0 /100WBC 03/31/25 16:10 Blast Cells 7 % (0-0) H* 04/02/25 02:00 Platelet Estimate Decreased (Normal) 04/02/25 02:00 Poikilocytosis Trace 04/02/25 02:00 Sodium 136 mmol/L (136-145) 04/02/25 02:00 Potassium 4.1 mmol/L (3.5-5.1) 04/02/25 02:00 Chloride 97 mmol/L (98-107) L 04/02/25 02:00 Carbon Dioxide 25 mmol/L (22-29) 04/02/25 02:00 Anion Gap 18.1 (5-19) 04/02/25 02:00 BUN 25 mg/dL (8-23) H 04/02/25 02:00 Creatinine 4.0 mg/dL (0.7-1.2) H 04/02/25 02:00 GFR Calculation Not Reportable 04/02/25 02:00 Glucose 76 mg/dL (65-115) 04/02/25 02:00 POC Glucose 126 mg/dL (70-110) H 04/02/25 11:06 Calculated Osmolality 285 mOsm/kg (285-295) 04/02/25 02:00 Lactic Acid 3.5 mmol/L (0.5-2.2) H 03/31/25 16:10 Lactic Acid (Sepsis) 3.0 mmol/L (0.5-2.2) H 03/31/25 17:58 Calcium 8.9 mg/dL (8.5-10.5) 04/02/25 02:00 Magnesium 2.0 mg/dL (1.7-2.3) 04/01/25 04:09 Total Bilirubin 1.9 mg/dL (0.15-1.2) H 04/01/25 04:09 AST 11 U/L (0-40) 04/01/25 04:09 ALT 6 U/L (0-41) 04/01/25 04:09 Alkaline Phosphatase 99 U/L (40-130) 04/01/25 04:09 Ammonia 42 umol/L (16-60) 03/31/25 16:10 Creatine Kinase 82 U/L (39-308) 03/31/25 16:10 Troponin T Baseline 219 ng/L (0-15) H* 03/31/25 16:10 Troponin T 120 Minute 214.4 ng/L (0-15) H 03/31/25 17:58 Delta Troponin T -4.6 ABS# (0-10) L 03/31/25 17:58 Troponin T Hi Sens 6Hr 238.4 ng/L (0-15) H 03/31/25 22:12 Troponin T Hi Sens 6Hr Delta 19.4 ng/L (0-12) H* 03/31/25 22:12 C-Reactive Protein 6.4 mg/L (0.0-4.9) H 03/31/25 16:10 NT-Pro-B Natriuret Pep 13220 pg/mL (0-450) H 03/31/25 16:10 Total Protein 5.7 g/dL (6.6-8.7) L 04/01/25 04:09 Albumin 3.7 g/dL (3.5-5.2) 04/01/25 04:09 Globulin 2.0 g/dL (1.3-4.6) 04/01/25 04:09 Procalcitonin 52.11 ng/mL (0-0.5) H 04/02/25 02:00 Hep Bs Antigen Non-reactive (Nonreactive) 04/02/25 02:00 Hep Bs Antibody < 3.5 (11.5-1000) L 04/02/25 02:00 Hepatitis C Antibody Non-reactive (Nonreactive) 04/02/25 02:00 Influenza A (PCR) Negative (Negative) 03/31/25 16:33 Influenza Type B (PCR) Negative (Negative) 03/31/25 16:33 RSV (PCR) Negative (Negative) 03/31/25 16:33 SARS-CoV-2 (PCR) Negative (Negative) 03/31/25 16:33 Vitals Last Vital Signs Temp 97.9 F 04/02/25 08:27 Pulse 90 04/02/25 08:27 Resp 17 04/02/25 08:27 BP 110/56 04/02/25 08:27 Pulse Ox 90 04/02/25 07:45 O2 Del Method Room Air 04/02/25 07:45 O2 Flow Rate 2 04/01/25 07:37 Discharge Plan Discharge Patient Disposition: Home Condition: Stable Prescriptions: New cefdinir 300 mg capsule 300 mg PO BID 5 Days Qty: 10 0RF doxycycline monohydrate 100 mg Tablet 100 mg PO BID Qty: 10 0RF Continued cholecalciferol (vitamin D3) 25 mcg (1,000 unit) capsule 50 mcg PO DAILY sevelamer carbonate 800 mg tablet 800 mg PO BID Rx Instructions: must administer with a meal/food finasteride 5 mg tablet 5 mg PO DAILY docusate sodium [Colace] 100 mg Capsule 100 mg PO DAILY PRN (Reason: Constipation) fluticasone propionate [Flonase Allergy Relief] 50 mcg/actuation spray,suspension 2 spray INTRANASAL DAILY PRN (Reason: allergies) Novolin R Regular U100 Insulin 100 unit/mL Solution See Rx Instructions .ROUTE .COMPLEX Rx Instructions: sliding scale 3-18 units bid loratadine [Claritin] 10 mg Tablet 10 mg PO DAILY diclofenac sodium 1 % Gel 4 g TOPICAL QID PRN (Reason: Pain) tamsulosin 0.4 mg capsule 0.8 mg PO QPM atorvastatin 80 mg Tablet 80 mg PO QPM carvedilol 6.25 mg tablet See Rx Instructions .ROUTE .COMPLEX Rx Instructions: Take 1/2 tablet (3.125mg) by mouth daily but not on dailysis days. pirtobrutinib 50 mg Tablet 50 mg PO DAILY furosemide 80 mg Tablet 80 mg PO QAM Rx Instructions: except for dialysis days pantoprazole 40 mg tablet,delayed release (DR/EC) 40 mg PO DAILY nitroglycerin 0.4 mg Tablet, Sublingual 0.4 mg SUBLINGUAL Q5M PRN (Reason: heart issues) Rx Instructions: do not exceed 3 doses per episode folic acid 1 mg Tablet 1 mg PO DAILY isosorbide mononitrate 30 mg Tablet Extended Release 24 Hr 30 mg PO QAM Held insulin glargine 100 unit/mL (3 mL) insulin pen 50 unit SUBCUT QAM Hold Instructions: hold if glucose <140 Discharge Order = DC NOW: Discharge Order (Routine); Ordered 04/02/25 Ordered By: Vika Go Referrals: Paula Sandoval MD [Primary Care Provider, [facility]] Referral Note: We have notified your physician's clinic of the need for a follow-up appointment to be scheduled. If you have not heard from them within the next 2 business days, please call them directly. Discharge Diet: Usual diet Discharge Activity: Resume usual activity Patient Instructions: Doxycycline (By mouth), Cefdinir (By mouth), Hospital Acquired Pneumonia (DC), Opioid Safety, Patient Portal & [facility]rata Instructions Discharge Attestations Time Spent in Discharge Care*: greater than 30 min Quality Metrics Clinical Quality Measures [ No reported AMI, CVA or VTE this stay] Coding Level of Care Code Acute Code for Chg Fwd Diagnoses Sepsis A41.9 Left lower lobe pneumonia J18.9 End stage renal disease on dialysis N18.6; Z99.2 CLL (chronic lymphocytic leukemia) C91.10 Elevated bilirubin R17 Elevated troponin R79.89 ASHD (arteriosclerotic heart disease) I25.10 S/P CABG (coronary artery bypass graft) Z95.1 Sick sinus syndrome I49.5 Status cardiac pacemaker Z95.0 Dyslipidemia E78.5 HTN (hypertension) I10 Generalized weakness R53.1
[2025-04-02] MEDS: cefTRIAXone 1,000 mg SDV 1000 MG IVP (11:56)
--- NOTE | 2025-04-02 18:32 | P.PN_ITS ---
Subjective 2 Subjective: no new c/o Medications: Reviewed: Yes Vitals/I&O/Wt Last Vital Signs Temp 98.2 F 04/02/25 14:07 Pulse 87 04/02/25 14:07 Resp 16 04/02/25 14:07 BP 140/65 04/02/25 14:07 Pulse Ox 91 04/02/25 14:07 O2 Del Method Room Air 04/02/25 11:40 O2 Flow Rate 2 04/01/25 07:37 04/02/25 04/02/25 04/02/25 06:59 14:59 22:59 Intake Total 1220 / 1220 Output Total 100 / 100 2500 / 2500 Balance -100 / 500 -1280 / -1280 Weight last 48 hrs Weight 100.4 kg Weight 103.3 kg Weight 98.883 kg Weight 99.019 kg Physical Exam 2 Narrative: Patient is awake alert, no distress No JVD PERRLA No acute distress S1-S2 regular rate and rhythm Lungs with decreased breath sounds bilaterally Abdomen soft nontender EXTR no pedal edema Skin no rash Data 04/02/25 02:00 04/02/25 02:00 Micro: Microbiology 03/31/25 16:12 Blood Culture - Preliminary Blood NEGATIVE TO DATE 03/31/25 16:10 Blood Culture - Preliminary Blood NEGATIVE TO DATE A&P Assessment and plan 1. End stage renal disease on dialysis: Plan: 1. ESRD: On TTS schedule, last dialysis was on , HD today, ultrafiltration as tolerated 2. Sepsis in the setting of possible pneumonia, antibiotics per primary team 3. History of CLL 4. History of coronary artery disease 5. Anemia: Hemoglobin 10.6, monitor Patient evaluated using audiovisual cart. Time spent 40 minutes. PDMP PDMP Reviewed: Not Reviewed Attestations 2 Medical Necessity Statement*: per [facility] Coding Level of Care Code Acute Code for Chg Fwd Diagnoses End stage renal disease on dialysis N18.6; Z99.2
== END 2025-04-02 13:45 | disposition home or self-care (01) | DRG 871 ==
LOC: ER 18:44 → MEDSURG 19:37
PROVIDERS: Hospitalist; Admitting Provider Student in an Organized Health Care Education/Training Program; Emergency Provider Physician Assistant; PCP Family Medicine; Visit Provider Student in an Organized Health Care Education/Training Program
DX: A41.9 Sepsis, unspecified organism (principal); J18.9 Pneumonia, unspecified organism; N18.6 End stage renal disease; I12.0 Hypertensive chronic kidney disease with stage 5 chronic kidney disease or end stage renal disease; C91.10 Chronic lymphocytic leukemia of B-cell type not having achieved remission; E87.20 Acidosis, unspecified; E11.22 Type 2 diabetes mellitus with diabetic chronic kidney disease; I25.10 Atherosclerotic heart disease of native coronary artery without angina pectoris; D63.1 Anemia in chronic kidney disease; R79.89 Other specified abnormal findings of blood chemistry; I49.5 Sick sinus syndrome; E78.5 Hyperlipidemia, unspecified; N25.0 Renal osteodystrophy; I65.23 Occlusion and stenosis of bilateral carotid arteries; N40.1 Benign prostatic hyperplasia with lower urinary tract symptoms; R09.02 Hypoxemia; R16.0 Hepatomegaly, not elsewhere classified; K80.20 Calculus of gallbladder without cholecystitis without obstruction; Z79.69 Long term (current) use of other immunomodulators and immunosuppressants; Z79.4 Long term (current) use of insulin; Z95.1 Presence of aortocoronary bypass graft; Z95.5 Presence of coronary angioplasty implant and graft; Z95.0 Presence of cardiac pacemaker; Z86.16 Personal history of COVID-19; Z87.891 Personal history of nicotine dependence; Z90.79 Acquired absence of other genital organ(s)
CPT/HCPCS: 36415; 36416; 71045; 76705; 80048; 80053; 82140; 82550; 82962; 83605; 83735; 83880; 84145; 84484; 85007; 85025; 86140; 86706; 86803; 87040; 87340; 87637; 90935; 93005; 94664; 96365; 96367; 96372; 96375; 99285; J0692; J0696; J1815; J2405; J2543; J3475; J3490; J7040; J9999

== ENCOUNTER 2025-05-18 20:58 | Emergency (ER) | payer OTHER, SELFPAY ==
--- OUTSIDE RECORDS SUMMARY | 2025-05-18 21:05 | XMS_ITS | Encounter Summary ---
Author Organization [facility] Address [address] [place] [address] Care Team Providers Care Psychiatrist Name Role Phone Paula Sandoval MD Primary Care Provider + [phone] Encounter Details Date Type Department Care Team (Late st Contact Info) Description 05/12/2025 Results Follow-Up [facility] [address] [facility] [address] [place] [phone] Lyndsey Dorsey, MARCELLO [address] [facility] [address] [place] [address] LIPID PANEL Social History Tobacco Use Types Packs/Day Years Used Date Smoking Tobacco: Former Cigarettes 0 Q uit: 01/01/1990 Smokeless Tobacco: Never Alcohol Use Standard Drinks/Week Comments Not Currently 0 (1 standard drink = 0.6 oz pur e alcohol) holidays/ special occasions Feeling Safe Answer Date Recorded Are you in a relationship wi th someone who hurts you emotionally and/or physically? No 02/07/2025 Food Insecurity Answer Date Recorded Patient needs [...] Care Team (Late st Contact Info) Description 05/26/2025 8:00 AM ELECTRICAL APPLIANCE PREPARER Procedure visit [facility] [address] [place] [phone] Sotero Alejandro MD [address] [place] [phone] 06/06/2025 3:30 PM ELECTRICAL APPLIANCE PREPARER Video Visit [facility] [place] [address] [phone] Mckenzie Merino, HYDRAULIC RUBBISH COMPACTOR MECHANIC [address] [place] [address] 06/08/2025 11:30 AM ELECTRICAL APPLIANCE PREPARER Appointment [facility] Interventional Radiology [address] [place] [address] Klarissa Flowers MD [address] [address] Greg Razo MD [address] [place] [address] 07/18/2025 11:00 AM ELECTRICAL APPLIANCE PREPARER Office Visit [facility] [address] [place] [phone] Sotero Alejandro MD [address] [place] [phone] Eliana Davis, MARCELLO [address] [place] [phone] 08/03/2025 11:30 AM ELECTRICAL APPLIANCE PREPARER Appointment [facility] Cancer [facility] Services [address] [place] [phone] 08/10/2025 9:00 AM ELECTRICAL APPLIANCE PREPARER Office Visit [facility] Cancer [facility] [place] [address] [place] [address] Umm Dotson, [address] [place] [address] 01/09/2026 1:00 PM CDT Office Visit [facility] [address] [place] [address] Warren Sweeney MD [address] [place] [address] Lyndsey Dorsey, MARCELLO [address] [place] [address] documented as of this encounter Visit Diagnoses Not on filedocumented in this encounter Care Teams Psychiatrist Relationship Specialty Start Date End Date Paula Sandoval MD [address] [place] [phone] PCP - General Family Practice 10/18/24 documented as of this encounter
--- OUTSIDE RECORDS SUMMARY | 2025-05-18 21:05 | XMS_ITS | Continuity of Care Document ---
Author Organization PETER - [facility] Amee, L.LGaboCGabo, [facility] ([facility]) Address [address] [facility] [address] Assessment No assessment recorded. Plan of Treatment Reminders Order Date Submit Date Provider Last Modified By Organization Details Last Modified Time Details Appointments None record ed. Lab None record ed. Referral None record ed. Procedures None record ed. Surgeries None record ed. Imaging None record ed. Medication Orders neomyc in-nakul ymyxin -hydro sumeet 3.5 mg-10, 000 unit/m L-1 % ear drops, susp 025 04/27/20 25 [facility], [address], [place], [address], 11:03:10 Patient TargetsNo targets recorded. Patient Instructions Encounter Date Encounter Id Patient Instructions Last Modified By Organization Details Last Modified Time 04/27/2025 [id number] Use drops and follow up for worsening [id number] Not available 04/27/2025 12:15:02 Reason for Referral None Reported. 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 Mann; 05/10/2021 2:25PM by Bernadette Bonilla RN, Office Visit; Promoted; acuity set as *; Not Available [facility] 3 03:16:30 Benign essential hypertens ion 2843925 Active 2020 Hypertensi on; 05/10/2021 2:25PM by Bernadette Bonilla RN, Office Visit; Promoted; acuity set as *; Not Available [facility] 3 03:16:35 Type 2 diabetes mellitus without complicat ion 213953399 Active 2020 Non-Insuli n Dependent Diabetes Mellitus; pt test QID; 05/10/2021 2:25PM by Bernadette Bonilla RN, Office Visit; Promoted; acuity set as *; Not Available [facility] 3 03:16:37 Problem Notes None recorded. Medical Equipment None Reported. Allergies Allergen ID Allergen Name Allergen Category Reaction Reaction Severity Criticality Documentation Date Start Date Code Code System Note Provider Name and Address Organization Details Recorded Time 08107 iodine medicatio n Not available Not available Not available 01/18/2023 5933 RxNorm Comme nt: Recor ded 05/10 2:25P M by Ryan Bonilla RN, Offic e Visit ; Promo emmanuel; Le gagnon ce: *; Reaso n: Drug aller gy; ; Not Available [facility] 3 02:24:23 74049 Uloric medicatio n hives Not available Not available 01/18/2023 83789 6 RxNorm React ion: Hives ; Comme nt: Recor ded 05/10 2:25P M by Ryan Bonilla RN, Offic e Visit ; Promo emmanuel; Signi kalin ce: *; Reaso n: Drug aller gy; ; Not Available [facility] 3 02:24:23 06847 allopurin ol medicatio n abdominal pain Not available Not available 01/18/2023 519 RxNorm React ion: Abdom inal pain, Hives ; Comme nt: Recor ded 05/10 2:25P M by Ryan Bonilla RN, Offic e Visit ; Promo emmanuel; Signi kalin ce: *; Reaso n: Drug aller gy; ; Not Available [facility] 3 02:24:23 38474 Flomax medicatio n other Not available Not available 01/18/2023 60853 3 RxNorm React ion: Blood disor luz marina; Comme nt: Recor ded 05/10 2:25P M by Ryan Bonilla RN, Offic e Visit ; Promo emmanuel; Signi kalin ce: *; Reaso n: Drug aller gy; ; Not Available [facility] 3 02:24:23 09987 Levaquin medicatio n hallucina tions Not available Not available 01/18/2023 10570 2 RxNorm React ion: demen tia, confu garfield, hallu cinat ions, agita tion; Comme nt: Recor ded 05/10 2:25P M by Ryan Bonilla RN, Offic e Visit ; Promo emmanuel; Signi kalin ce: *; Reaso n: Drug aller gy; ; Not Available [facility] 3 02:24:23 72432 Seroquel medicatio n hallucina tions Not available Not available 01/18/2023 82126 RxNorm React ion: hallu cinat ions; Comme nt: Recor ded 05/10 2:25P M by Ryan Bonilla RN, Offic e Visit ; Promo emmanuel; Signi kalin ce: *; Reaso n: Drug aller gy; ; Not Available [facility] 3 02:24:23 Medications Name Sig Start Date Stop Date Status Note LastModified by Organization Details LastModified Time furosemid e 40 mg tablet TAKE 1 TABLET BY MOUTH ONCE DAILY NEEDED FOR EDEMA active Not Available Not Available No t Available carvedilo l 6.25 mg tablet TAKE 1 TABLET BY MOUTH EVERY 12 HOURS active Not Available Not Available No t [...] Not Available No t Available prednison e 20 mg tablet 3 TABS (60MG) AROUND LUNCH THE DAY AND 3 TABS IN THE EVENING THE DAY BEFORE SURGERY AND TAKE 3 TABS (FINAL DOSE) THE MORNING OF SURGERY active Not Available Not Available No t [...] 2019 active 25 units QHS; Recorded 02/07/20 21 2:19PM by Bernadette Bonilla, SUDARSHAN, Office Visit; Refill Quantity : 1; month; Not Available Not Available Not Available clopidogr el 75 mg tablet Take 1 tablet every day by oral route. 07/03 completed Not Available Not Available Not Available fexofenad ine 180 mg tablet TAKE 1 TABLET BY MOUTH ONCE DAILY FOR 2 DOSES THE NIGHT BEFORE AND AGAIN THE MORNING OF YOUR PROCEDUR E active Not Available Not Available No t Available doxycycli ne monohydra te 100 mg tablet TAKE 1 TABLET BY MOUTH TWICE DAILY 05/08 completed Not Available Not Available Not Available isosorbid e mononitra te ER 60 mg tablet,ex tended release [address] Orellana; 0; Recorded 05/10/20 21 2:25PM by Bernadette Bonilla, RN, Office Visit; Not Available Not Available Not Available torsemide 100 mg tablet TAKE 1 TABLET BY MOUTH ONCE DAILY ON NON-DIAL YSIS DAYS (FRIDAY, , FRIDAY, AND FRIDAY) active Not Available Not Available No t Available tamsulosi n 0.4 mg capsule QD 03/26 completed 0; Recorded 05/10/20 21 2:25PM by Bernadette Bonilla RN, Office Visit; Not Available Not Available Not Available cephalexi n 500 mg capsule TAKE 1 CAPSULE BY MOUTH EVERY 8 HOURS FOR 3 DAYS 05/08 completed Not Available Not Available Not Available pantopraz ole 40 mg tablet,de layed release TAKE 1 TABLET BY MOUTH TWICE DAILY active Not Available Not Available No t Available mont[address] [facility] 10 mg tablet TAKE [...] Not Available Not Available No t Available cefdinir 300 mg capsule TAKE ONE CAPSULE BY MOUTH TOMORROW N AND THEN AFTER THAT TAKE ONE CAPSULE ON DIALYSIS DAYS AFTER DIALYSIS AND AN ADDITION AL CAPSULE 48 HOURS INTO YOUR 72 HOUR INTERDIA LYTIC PERIOD. (TOTAL OF 10 DAYS) 05/08 completed Not Available Not Available Not Available doxycycli ne hyclate 100 mg tablet TAKE 1 TABLET BY MOUTH TWICE DAILY FOR 14 DAYS active Not Available Not Available No t Available finasteri de 5 mg tablet QD active 0; Recorded 05/10/20 21 2:25PM by Bernadette Bonilla RN, Office Visit; Not Available Not Available Not Available neomycin- polymyxin -hydrocor t 3.5 mg-10,000 unit/mL-1 % ear drops,[place] p INSTILL 4 DROPS INTO AFFECTED EAR(S) THREE TIMES DAILY active Not Available Not Available No t Available loratadin e qd active 0; Recorded 05/10/20 21 2:25PM by Bernadette Bonilla, SUDARSHAN, Office Visit; Not Available Not Available Not [...] Recorded 05/10/20 21 2:25PM by Bernadette Bonilla, SUDARSHAN, Office Visit; Not Available Not Available Not [...] minutes x 3 prn 2019 active VO /[facility] ; Recorded 01/20/20 21 [...] Active three times daily 2021 active v/o JR/tx Dx- E11.8; 173; Recorded 08/08/19 22 4:10PM by Noah garduno (Authori carlosd through Alejandro Macias MD), Refill Request; Refill [...] Not Available Not Available No t Available Procto-Me d HC 2.5 % topical cream perineal applicato r APPLY TO THE AFFECTED AREA TWICE DAILY active Not Available Not Available No t Available losartan potassium (bulk) daily 03/26 completed vo JR/bh; 173; Recorded 09/27/19 22 12:15PM by Bernadette Bonilla RN (Authori zed through Alejandro Macias MD), Refill Request; Refill Quantity : 100; Tablet; Not Available Not Available Not Available Paxlovid 300 mg (150 mg x 2)-100 mg tablets in a dose pack as directed 03/26 completed Not Available Not Available Not Available Vitals Date Recorded Body height Body mass index (BMI) Body weight Body temperature Oxygen saturation Heart rate Systolic And Diastolic Provider Name and Address Organization Details Last Updated DateTime 5 180.34 cm 30.6 kg/m2 20486.8 3 g 98.1 [degF] 96 % 90 /min 122/56 mm[Hg] Leila Higgins [facility], LGabo 5 10:49:54 Social History None recorded. Functional Status None recorded. Mental Status None recorded. Family History Nothing Reported. Medical History No medical history recorded. Immunizations Vaccine Type Date Status Note Provider Nam e and Address Organization Details Recorded Time Td (adult), 2 Lf tetanus toxoid, preservative free, adsorbed 7 completed Not Available [facility] 01/18/2023 02:50:56 Influenza, split virus, trivalent, preservative 1 completed Not Available [facility] 01/18/2023 02:50:56 pneumococcal, unspecified formulation 1 completed Not Available [facility] 01/18/2023 02:50:56 zoster, unspecified formulation 1 completed Not Available [facility] 01/18/2023 02:50:56 Influenza, split virus, trivalent, preservative 1 completed Not Available [facility] 01/18/2023 02:50:56 pneumococcal polysaccharide PPV23 1 completed Not Available [facility] 01/18/2023 02:50:56 COVID-19, mRNA, LNP-S, PF, 30 mcg/0.3 mL dose 1 completed Not Available [facility] 01/18/2023 02:50:57 COVID-19, mRNA, LNP-S, PF, 30 mcg/0.3 mL dose 1 completed Not Available [facility] 01/18/2023 02:50:57 Past Encounters Encounter ID Performer Location Encounter Start Date Encounter Closed Date Diagnosis/Indication Diagnosis SNOMED-CT Code Diagnosis ICD10 Code Diagnosis IMO Codes Diagnosis Note [id number] SHERLYN CORREA APRN [facility] ([facility]) [address] [place] [phone] 04/27/2025 10:38:31 04/27/2025 12:26:23 Acute otitis externa of left ear 9573201012 491911 H60.502 [id number] Health Concerns Section Related Observation LastModified by Organization Detai ls LastModified Time None Recorded Concern Status LastModified by Organization Details LastModified Time None Recorded Payers Encounter Date Sequence Insurance Name Policy Number Policy Cedillo Covered Member ID Cedillo Member ID Guarantor Name 04/27/2025 2 [employer] (MEDICARE SUPPLEMENT) Valente Renae [id number] Valente Renae 04/27/2025 1 [place]IC[place] Valente Renae [id number] Valente Renae Notes Date Note Type Note Provider Name and Address Organization Details Recorded Time 04/27/2025 text/html Walk inEar ache. Left side. No drainage, no fever. No sore throat. Started x2 weeks ago after pneumonia. Not a constant pain. Has been wearing aids again SHERLYN CORREA, [employer] [address] [place], [address], [facility] 04/27/2025 12:15:16
--- OUTSIDE RECORDS SUMMARY | 2025-05-18 21:05 | XMS_ITS | Data Portability ---
Author Organization [facility], Omega, [facility] Address [address] [facility] [address] [place] [address] Assessment Encounter Date Assessment Date Assessment LastModified [...] CoV 2 RNA, QL, nasopharynx 2022 023 [facility] ([facility]), [address] [facility], [place], [address], 13:21:58 SARS CoV 2 RNA (COVID-19), QL, creative coordinator-PCR, respiratory specimen 2022 023 [facility], [address] [place] [address], [facility] [address] [place], [address], 08:30:00 Referral None recorded. Procedures None recorded. Surgeries None recorded. Imaging None recorded. Medication Orders neomycin-po lymyxin-hyd rocort 3.5 mg-10,000 unit/mL-1 % ear drops,susp 2024 025 [facility] 15, [address], [place], [address], 5 11:03:10 doxycycline hyclate 100 mg capsule 2024 025 [facility] 15, [address], [place], [address], 13:29:23 montelukast 10 mg tablet 2023 024 [facility] 15, [address], [place], [address], 4 13:02:33 ondansetron HCl 4 mg tablet 2022 [email or web address] [place] [address] 15, [address], [place], [address], 12:17:46 Paxlovid 300 mg (150 mg x 2)-100 mg tablets in a dose pack 2022 023 [email or web address] 276 [facility] 15, [address], [place], [address], 12:17:59 Patient TargetsNo targets recorded. Patient Instructions Encounter Date Encounter Id Patient Instructions Last Modified By Organization Details Last Modified Time 03/26/2024 [id number] Call or return for questions or concerns. Not available 03/26/2024 13:02:26 07/03/2024 [id number] Call or return for questions or concerns. If he is feeling worse he should go to the ER. Not available 07/03/2024 13:29:41 04/27/2025 [id number] Use drops and follow up for worsening [email or web address] Not available 04/27/2025 12:15:02 Reason for Referral None Reported. Results Created Date Observation Date Name Description Value Unit Range Abnormal Flag Note LastModifiedBy Organization Detail LastModifiedTime 03/17/20 23 03/19/2023 SARS COV 2 RNA(C OVID 19), QUALI [...] Disea se Contr ol and preve ntion ([facility]) pre depar ture and arriv al requi remen t for viral test for COVID -19 dated 2020. Testi ng requi remen ts for christiano wiggins october knight e with time. The patie nt is respo nsibl e for deter minin g the test requi remen ts for each natio n while they are christiano wiggins. This test has been autho rized by the FDA under an Emerg ency Use Autho rizat ion (EUA) for use by autho rized labor atori es. Jayde montez w the Fact Sheet s and FDA autho rized label ing avail able for healt h care provi ders and patie nts using the follo wing websi sofi: https ://wendy w.que stdia gnost ics.c om/ho me/Co vid-1 9/HCP /Ques tIVD/ fact- sheet .html https ://wendy w.que stdia gnost ics.c om/ho me/Co vid-1 [...] addit ional speci men. Addit ional infor matio n about COVID -19 can be found at the [facility] ostic s websi te: www.Q uestD iagno stics .com/ Covid 19. For patie nts with a Detec emmanuel or Incon clusi ve test resul t, pleas e see CDC's COVID -19 Treat ments and Medic ation s page locat ed at https ://ww w.cdc .gov/ coron aviru s/ 9-nco v/you r-hea lth/t reatm ents- for- sever e-ill ness. html for infor matio n on COVID -19 thera peuti cs. For patie nts with a Not Detec emmanuel test resul t, pleas e see CDC's Vacci elly for COVID -19 page locat ed at https ://D4P.cdc .gov/ coron aviru s/ 9-nco v/vac cines /inde x.htm l for infor matio n on COVID -19 vacci elly. Not Available [facility] [address] [place], [address], 03/19/2023 08:30:00 03/17/20 23 03/17/2023 SARS CoV 2 RNA, QL, nasop haryn x COVID negati ve Not Available [facility] ([facility]) [address] [place], [address], 03/17/2023 12:49:58 Result Notes None recorded. 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 Mann; 05/10/2021 2:25PM by Bernadette Bonilla RN, Office Visit; Promoted; acuity set as *; Not Available [facility] 3 03:16:30 Benign essential hypertens ion 3961956 Active 2020 Hypertensi on; 05/10/2021 2:25PM by Bernadette Bonilla RN, Office Visit; Promoted; acuity set as *; Not Available [facility] 3 03:16:35 Type 2 diabetes mellitus without complicat ion 535172383 Active 2020 Non-Insuli n Dependent Diabetes Mellitus; pt test QID; 05/10/2021 2:25PM by Bernadette Bonilla RN, Office Visit; Promoted; acuity set as *; Not Available [facility] 3 03:16:37 Problem Notes None recorded. Medical Equipment None Reported. Allergies Allergen ID Allergen Name Allergen Category Reaction Reaction Severity Criticality Documentation Date Start Date Code Code System Note Provider Name and Address Organization Details Recorded Time 67150 iodine medicatio n Not available Not available Not available 01/18/2023 5933 RxNorm Comme nt: Recor ded 05/10 2:25P M by Ryan Bonilla RN, Offic e Visit ; Promo emmanuel; Le gagnon ce: *; Reaso n: Drug aller gy; ; Not Available [facility] 3 02:24:23 85405 Uloric medicatio n hives Not available Not available 01/18/2023 00902 6 RxNorm React ion: Hives ; Comme nt: Recor ded 05/10 2:25P M by Ryan Bonilla RN, Offic e Visit ; Promo vivian gagnon ce: *; Reaso n: Drug aller gy; ; Not Available [facility] 3 02:24:23 08864 allopurin ol medicatio n abdominal pain Not available Not available 01/18/2023 519 RxNorm React ion: Abdom inal pain, Hives ; Comme nt: Recor ded 05/10 2:25P M by Ryan Bonilla RN, Offic e Visit ; Promo emmanuel; Signi kalin ce: *; Reaso n: Drug aller gy; ; Not Available [facility] 3 02:24:23 28995 Flomax medicatio n other Not available Not available 01/18/2023 27239 3 RxNorm React ion: Blood disor luz marina; Comme nt: Recor ded 05/10 2:25P M by Ryan Bonilla RN, Offic e Visit ; Promo emmanuel; Signi ficloren ce: *; Reaso n: Drug aller gy; ; Not Available [facility] 3 02:24:23 52977 Levaquin medicatio n hallucina tions Not available Not available 01/18/2023 92595 2 RxNorm React ion: demen tia, confu garfield, hallu cinat ions, agita tion; Comme nt: Recor ded 05/10 2:25P M by Ryan Bonilla RN, Offic e Visit ; Promo emmanuel; Signi kalin ce: *; Reaso n: Drug aller gy; ; Not Available [facility] 3 02:24:23 44765 Seroquel medicatio n hallucina tions Not available Not available 01/18/2023 80175 RxNorm React ion: hallu cinat ions; Comme nt: Recor ded 05/10 2:25P M by Ryan Bonilla RN, Offic e Visit ; Promo emmanuel; Signi kalin ce: *; Reaso n: Drug aller gy; ; Not Available [facility] 3 02:24:23 Medications Name Sig Start Date [...] oral route as needed for 4 days. 09/25/ 2023 10/04 /2024 completed Not Available Not Available Not Available [...] Recorded 02/07/20 21 2:19PM by Bernadette Bonilla, RN, Office Visit; Refill Quantity : 1; [...] — [facility] ; Recorded 01/20/20 8:38AM by Janel Abarca, Office Visit; Refill [...] 10:53AM by Noah garduno (Authori zed through Alejandor Macias MD), Refill Request; Refill Quantity : [...] 22 12:15PM by Bernadette Bonilla RN (Authori emmanuel through Alejandro Macias MD), Refill Request; Refill Quantity : 100; Tablet; Not Available Not Available Not Available Paxlovid 300 mg (150 mg x 2)-100 mg tablets in a dose pack as directed 03/26 completed Not Available Not Available Not Available Vitals Date Recorded Body height Body mass index (BMI) Body weight Body temperature Heart rate Oxygen saturation Systolic And Diastolic Provider Name and Address Organization Details Last Updated DateTime 5 180.34 cm 32.1 kg/m2 963712. 05 g 98.4 [degF] 77 /min 93 % 140/62 mm[Hg] Sherin Jama [facility], L[facility]LGaboCGabo 5 12:50:20 Date Recorded Body height Body mass index (BMI) Body weight Oxygen saturation Heart rate Respiratory rate Body temperature Provider Name and Address Organization Details Last Updated DateTime 3 177.8 cm 35.7 kg/m2 478951. 5 g 98 % 94 /min 20 /min 98.2 [degF] SAILAJA ROSALES [facility] [address] [place], [address] , [facility], LGaobLMaureen 3 12:51:23 Date Recorded Body weight Body mass index (BMI) Body height Body temperature Oxygen saturation Heart rate Systolic And Diastolic Provider Name and Address Organization Details Last Updated DateTime 4 585827. 13 g 34.2 kg/m2 180.34 cm 98 [degF] 95 % 81 /min 132/58 mm[Hg] Sherin Jama [facility] L.L[facility] 4 12:22:13 Date Recorded Body height Body mass index (BMI) Body weight Body temperature Oxygen saturation Heart rate Systolic And Diastolic Provider Name and Address Organization Details Last Updated DateTime 5 180.34 cm 30.6 kg/m2 88929.8 3 g 98.1 [degF] 96 % 90 /min 122/56 mm[Hg] Leila Stacksalma [facility], L.L.C[facility] 5 10:49:54 Social History None recorded. Functional Status None recorded. Mental Status None recorded. Family History Nothing Reported. Medical History No medical history recorded. Immunizations Vaccine Type Date Status Note Provider Nam e and Address Organization Details Recorded Time Td (adult), 2 Lf tetanus toxoid, preservative free, adsorbed 7 completed Not Available [facility] 01/18/2023 02:50:56 Influenza, split virus, trivalent, preservative 1 completed Not Available [facility] 01/18/2023 02:50:56 pneumococcal, unspecified formulation 1 completed Not Available [facility] 01/18/2023 02:50:56 zoster, unspecified formulation 1 completed Not Available [facility] 01/18/2023 02:50:56 Influenza, split virus, trivalent, preservative 1 completed Not Available [facility] 01/18/2023 02:50:56 pneumococcal polysaccharide PPV23 1 completed Not Available [facility] 01/18/2023 02:50:56 COVID-19, mRNA, LNP-S, PF, 30 mcg/0.3 mL dose 1 completed Not Available [facility] 01/18/2023 02:50:57 COVID-19, mRNA, LNP-S, PF, 30 mcg/0.3 mL dose completed Not Available [facility] 01/18/2023 02:50:57 Past Encounters Encounter ID Performer Location Encounter Start Date Encounter Closed Date Diagnosis/Indication Diagnosis SNOMED-CT Code Diagnosis ICD10 Code Diagnosis IMO Codes Diagnosis Note [id number] SAILAJA ROSALES MAINTENANCE GROUNDMAN [facility] ([facility]) [address] [place] [address] 5 03/17/2023 12:05:05 03/18/2023 14:42:14 Cough 51553921 R05.9 COVID-19 625870632 U07.1 Nausea 922736241 R11.0 [id number] TONY CAMPOS [facility] ([facility]) [address] [place] [address] 5 03/26/2024 11:40:55 03/26/2024 13:06:31 Seasonal allergic rhinitis 923606270 J30.2 [id number] TONY CAMPOS [facility] ([facility]) [address] [place], [place] [address] 07/03/2024 12:08:59 07/03/2024 13:37:45 Acute bacterial bronchitis 311789322 J20.9 End stage renal failure on dialysis 380196099 N18.[address] [place] out of [place] claire [id number] SHERLYN CORREA APRN [facility] ([facility]) [address] [place] [address] 5 04/27/2025 10:38:31 04/27/2025 12:26:23 Acute otitis externa of left ear 5471627979 016854 H60.502 541662051 Health Concerns Section Related Observation LastModified by Organization Detai ls LastModified Time None Recorded Concern Status LastModified by Organization Details LastModified Time None Recorded Advance Directives Directive None Recorded Payers Insurance Date Sequence Insurance Name Policy Number Policy Cedillo Covered Member ID Cedillo Member ID Guarantor Name 04/27/2025 2 [employer] (MEDICARE SUPPLEMENT) Valente Renae [id number] Valente Renae 04/29/2025 1 [place] Valente Renae [id number] Valente Renae 05/02/2025 [place] - [place] A - [facility] (MEDICARE) Valente Renae [id number] Valente Renae 05/02/2025 [place] - [facility] (MEDICARE) Valente Renae [id number] Valente Renae Notes Date Note Type Note [...] No nausea.ROS as noted in the HPI SAILAJA ROSALES, [facility] [address] [place], [address], [facility] 03/17/2023 13:27:21 03/26/2024 text/html CoughReported by PatientHPIFor quality, patient reportsproductive. For severity, patient reportsmoderate. For duration, patient reportsconstant. For onset/timing, patient reportssudden. For context, patient reportsnon-smoker. For associated symptoms, patient reportsno fever,no chills, andno throat clearing.ROS as noted in the HPI walk in ptPt has had a terrible cough for a week and a half. TONY CAMPOS, [facility] [address] [place], [address], [facility], [facility] 03/26/2024 13:04:04 07/03/2024 text/html CoughReported by Patient walk in ptPt has a cough and weakness for a week and has 2 dialysis visits. TONY CAMPOS, MAINTENANCE GROUNDMAN [address] [place], [address], [facility], LGaboLRick. 07/03/2024 13:30:07 04/27/2025 text/html Walk inEar ache. Left side. No drainage, no fever. No sore throat. Started x2 weeks ago after pneumonia. Not a constant pain. Has been wearing aids again SHERLYN CORREA, ROBY [address] [place], [address], [facility], LGaboLRick. 04/27/2025 12:15:16
--- OUTSIDE RECORDS SUMMARY | 2025-05-18 21:05 | XMS_ITS | Encounter Summary ---
Author Organization [employer] Address [address] [place] [address] Care Team Providers Care Purchasing Internship Name Role Phone Paula Sandoval MD Primary Care Provider + [phone] Encounter Details Date Type Department Care Team (Late st Contact Info) Description 05/10/2025 External Device Data STL ABSTRACTION Provider, Abstract [...] st Contact Info) Description 05/26/2025 8:00 AM REVENUE ACCOUNTING MANAGER Procedure visit [facility] [address] [place] [address] Sotero Alejandro MD [address] [place] [address] 06/06/2025 3:30 PM REVENUE ACCOUNTING MANAGER Video Visit [facility] [address] [facility] [address] [place] [address] Mckenzie Merino, [facility] [address] [place] [address] 06/08/2025 11:30 AM REVENUE ACCOUNTING MANAGER Appointment [facility] Inter[facility] Radiology [address] [place] [address] Klarissa Flowers MD [address] [place] [address] Greg Razo MD [address] [place] [address] 07/18/2025 11:00 AM REVENUE ACCOUNTING MANAGER Office Visit [facility] [address] [place] [address] Sotero Alejandro MD [address] [place] [address] Eliana Davis NP [address], [address] [place] [address] 08/03/2025 11:30 AM REVENUE ACCOUNTING MANAGER Appointment [facility] [address] [place] [address] 08/10/2025 9:00 AM REVENUE ACCOUNTING MANAGER Office Visit [facility] [address] [place] [address] Umm Dotson DO [address] [place] [address] 01/09/2026 1:00 PM CDT Office Visit [facility] Heart [facility] [address] [place] [address] Warren Sweeney MD [address] [place] [address] Lyndsey Dorsey NP [address] [place] [address] documented as of this encounter Visit Diagnoses Not on filedocumented in this encounter Care Teams Purchasing Internship Relationship Specialty Start Date End Date Paula Sandoval MD [address] [place] [address] PCP - General Family Practice 10/18/24 documented as of this encounter
--- OUTSIDE RECORDS SUMMARY | 2025-05-18 21:05 | XMS_ITS ---
Author Organization [facility] Address [address] [place] [address] Phone Care Team Providers Care Glost Kiln Placer Name Role Phone Paula Sandoval MD Primary Care Provider + [phone] Active Problems Problem Noted Date Diagnosed Date [...] lobe of lung 03/29/2024 Lesion of right flandreau kidney 03/29/2024 Acute hypoxic respiratory failure 03/29/2024 [...]
--- OUTSIDE RECORDS SUMMARY | 2025-05-18 21:05 | XMS_ITS | Clinical Summary ---
Author Organization [facility] Address [address] [address] Phone Care Team Providers [place] Lifeguard Name Role Phone Paula Sandoval MD Primary Care Provider + [phone] Allergies Active Allergy Reactions Criticality Noted Date [...] Constipation. Active fluticasone propionate (FLONASE) 50 mcg/spray Coin, Suspension nasal inhaler Administer 1 Coin in each nostril 2 times daily. Active [...] PM CDT 04/06/20 Active Additional Information Patient not taking.Reported on 05/09/2025 furosemide (LASIX) 40 mg tablet Take 2 Tablets (80 mg) by mouth two times daily, 7 hours apart. 120 Tablet 4 1:52 PM CDT 04/06/20 24 Active isosorbide mononitrate (IMDUR) 120 mg Extended Release 24 hour tablet Take 1 Tablet by mouth. 04/27/20 24 Active sevelamer carbonate (RENVELA) 800 mg Tablet Take 800 mg by mouth 3 times daily with meals. 04/14/20 24 Active glucosamine-ch ondroitin (ARTHX DS) 500-400 mg Capsule Take 1 Capsule by mouth. Active carvediloL (COREG) 6.25 mg tablet Take 1 Tablet (6.25 mg) by mouth every 12 hours. 90 Tablet 3 07/21/19 25 Active epoetin janet (EPOGEN INJECTION) Epoetin Janet (Epogen) 11/10/19 25 2025 Active pantoprazole (PROTONIX) 40 mg Tablet, Delayed [...] hours before your procedure 1 Capsule 01/13/20 Active predniSONE (DELTASONE) 20 mg tablet Take [...] the morning of surgery. 9 Tablet 01/13/20 Active insulin regular (HumuLIN R,NovoLIN R) 100 [...] for Itching. 12 Suppository 1 01/21/20 Active Additional Information Patient not taking.Reported on 05/09/2025 carvediloL (COREG) 3.125 mg tablet Take 1 Tablet by mouth. 10/27/192024 Discontin ued(Alter og therapy prescribe d) Active Problems Problem Noted Date Diagnosed Date [...] lobe of lung 03/29/2024 Lesion of right [place] kidney 03/29/2024 Acute hypoxic respiratory failure 03/29/2024 Anemia 03/29/2024 Thrombocytopenia 03/29/2024 Impaired mobility 02/02/2021 CLL (chronic lymphocytic leukemia) 02/02/2021 History of COVID-19 02/02/2021 Generalized muscle weakness 01/30/2021 Acute cystitis without hematuria 01/30/2021 Stage 4 chronic kidney disease 11/05/2019 Chronic lymphocytic leukemia 11/05/2019 Encounters Date Type Department Care Team Description 05/12/2025 Results Follow-Up [place] [address] [place] [address] [phone] Lyndsey Dorsey NP LIPID PANEL 05/10/2025 External Device Data STL ABSTRACTION Provider, Abstract 05/09/2025 2:15 PM ASSEMBLER TESTER Procedure visit [place] [address] [place] [address] [phone] Sotero Alejandro MD Sick sinus syndrome (CMS/HCC) (Primary Dx); Dilated cardiomyopathy (CMS/HCC); Chronic combined systolic and diastolic CHF (congestive heart failure) (CMS/HCC); Ischemic dilated cardiomyopathy (CMS/HCC); Automatic implantable cardioverter-defibril lator in situ 05/09/2025 1:00 PM ASSEMBLER TESTER Office Visit [place] [address] [place] [phone] Lyndsey Dorsey NP Mixed hyperlipidemia (Primary Dx); Chronic combined systolic and diastolic CHF (congestive heart failure) ([facility]); Sick sinus syndrome ([facility]); Automatic implantable cardioverter-defibril lator in situ; ASHD (arteriosclerotic heart disease); Hx of CABG; ESRD (end stage renal disease) ([facility]) 04/28/2025 Orders Only [facility] [place] [address] [facility] 2 [place] [address] Tom Becerril NP CLL (chronic lymphocytic leukemia) ([facility]) (Primary Dx); Thrombocytopenia 04/27/2025 Orders Only [facility] [address] [facility] 2 [place] [phone] Tom Becerril NP CLL (chronic lymphocytic leukemia) ([facility]) (Primary Dx) 04/26/2025 External Device Data STL ABSTRACTION Provider, Abstract 04/22/2025 11:30 AM CDT Office Visit [facility] [place] [address] [place] [phone] Klarissa Flowers MD ESRD (end stage renal disease) ([facility]) (Primary Dx); S/P arteriovenous (AV) graft placement 03/22/2025 External Device Data STL ABSTRACTION Provider, Abstract 03/22/2025 Orders Only [facility] [address] [facility] [address] [place] [address] Umm Dotson DO 03/21/2025 1:00 PM CDT Office Visit [facility] [address] [facility] 2 [place] [phone] Umm Dotson DO CLL (chronic lymphocytic leukemia) ([facility]) (Primary Dx); Thrombocytopenia 03/21/2025 12:05 PM CDT - 03/21/2025 11:59 PM CDT Hospital Encounter [facility] Laboratory Services [address] [place] [address] [place] [address] Umm Dotson DO Discharge Disposition: Home or Self Care 03/21/2025 Telephone [facility] [place] [address] [place] [phone] Klarissa Flowers MD Question 03/17/2025 Orders Only [facility] [place] [address] [facility] [place] [address] Umm Dotson DO CLL (chronic lymphocytic leukemia) (CMS/HCC) (Primary Dx) 03/16/2025 Orders Only [facility] Cancer and Hematology [place] [address] [place] [address] 2 [place] [address] Umm Dotson DO CLL (chronic lymphocytic leukemia) (CMS/HCC) (Primary Dx) 03/15/2025 Telephone [facility] [place] [address] [place] [phone] Klarissa Flowers MD Appointment Notification; Question 03/14/2025 Telephone [facility] [place] [address] [phone] Klarissa Flowers MD Question 03/08/2025 External Device Data STL ABSTRACTION Provider, Abstract 02/25/2025 Orders Only [facility] Cancer and Hematology [place] [address] [facility] 2 [place] [address] Umm Dotson DO CLL (chronic lymphocytic leukemia) (CMS/HCC) (Primary Dx) 02/16/2025 12:30 PM CDT Nurse Only [facility] [address] [facility] [address] [place] [address] Sotero Alejandro MD Ischemic dilated cardiomyopathy (CMS/HCC) (Primary Dx); Chronic combined systolic and diastolic CHF (congestive heart failure) (CMS/HCC); Left ventricular ejection fraction of 21% to 40%; Dilated cardiomyopathy (CMS/HCC); Sick sinus syndrome (CMS/HCC); Automatic implantable cardioverter-defibril lator in situ from Last 3 Months Immunizations Immunization Administration Dates Next Due (ADACEL/BOOSTRIX)(10 YR UP) TDAP VACCINE, 0.5ML, IM 12/20/2020 (HEPLISAV-B)(18 YR UP) HEPAT ITIS B VACCINE CPG-ADJUVANTED (HEPB-CPG) 2-4 DOSE, IM 04/29/2024 (PFIZER)(12 YR UP) COVID-19 VACCINE - EMERGENCY USE AUTHORIZATION, MRNA, [id number]) 30 MCG/0.3 ML IM SUSP 08/18/2020,07/24/2020,06/23/2020 (PNEUMOVAX [...] 0 Q uit: 01/01/1990 Smokeless Tobacco: Never Tobacco Cessation:Counseling Given: Not [...] Sign Reading Time Taken Comments Blood Pressure 110/64 05/09/2025 12:52 PM ASSEMBLER TESTER Pulse 78 05/09/2025 12:52 PM ASSEMBLER TESTER Temperature 36.4 C (97.5 F) 03/21/2025 1:00 PM CDT Respiratory Rate 17 02/07/2025 2:50 PM CDT Oxygen Saturation 98% 05/09/2025 12: 52 PM ASSEMBLER TESTER Inhaled Oxygen Concentration - - Weight 100.3 kg (221 lb 3.2 oz) 025 12:52 PM ASSEMBLER TESTER Height 180.3 cm (5' 11 ) 05/09/2025 12: 52 PM ASSEMBLER TESTER Body Mass Index 30.85 05/09/2025 12:52 PM ASSEMBLER TESTER Plan of Treatment Upcoming Encounters Date Type Department Care Team (Late st Contact Info) Description 05/26/2025 8:00 AM ASSEMBLER TESTER Procedure visit [facility] [address] [place] [phone] Sotero Alejandro MD [address] [place] [address] [place] [phone] 06/06/2025 3:30 PM ASSEMBLER TESTER Video Visit [facility] Cancer and Hematology [place] [address] [facility] [address] [place] [phone] Mckenzie Merino, SENIOR LOSS CONTROL SPECIALIST [address] [place] [address] 06/08/2025 11:30 AM ASSEMBLER TESTER Appointment [facility] Interventional Radiology [address] [place] [address] Klarissa Flowers MD [address] [place] [phone] Greg Razo MD [address] [place] [address] 07/18/2025 11:00 AM ASSEMBLER TESTER Office Visit [facility] [address] [place] [address] Sotero Alejandro MD [address] [place] [address] Eliana Davis NP [address] [place] [address] 08/03/2025 11:30 AM ASSEMBLER TESTER Appointment [facility] Laboratory Services [address] [facility] 2 [place] [address] 08/10/2025 9:00 AM ASSEMBLER TESTER Office Visit [facility] Cancer and Hematology [place] [address] [facility] 2 [place] [address] Umm Dotson DO [address] [place] [address] 01/09/2026 1:00 PM CDT Office Visit [facility] [address] [place] [address] Warren Sweeney MD [address] [place] [phone] Lyndsey Dorsey, SUBWAY TRAIN DRIVER [address] [facility] [address] [place] [address] Health Maintenance Due Date Last Done Comments DIABETES ANNUAL FOOT EXAM 1963 Traditional Medicare (O) A nnual Wellness Visit 1964 RSV VACCINE (60+ or ) (1 - 1-dose 75+ series) 2019 DIABETES ANNUAL RETINAL EXAM 12/08/2024, 12/09/2023, 10/16/2016, Additional history exists INFLUENZA VACCINE (#1) 2025 , 03/12/2021, 05/23/2014, Additional history exists COVID-19 Vaccine ( - 2024-2 6 season) 2025 08/18/2020, 07/24/2020, 06/23/2020 DIABETES MICROALBUMIN ANNUAL SCREEN 03/29/2025 03/29/2024 DIABETES HBA1C Q 6 MONTHS 08/24/20252024, 04/08/2024, 03/29/2024, Additional history exists LDL CHOLESTEROL ANNUAL 05/11/2026 , 03/29/2024, 12/11/2020 DTAP/TDAP/TD VACCINES (3 - T d or Tdap) 12/20/2030 12/20/2020, 06/04/2007, 11/30/2004 COLORECTAL SCREENING Discontinued 02/14/2016, 02/14/20 16 Colorectal Cancer Screening Discontinued PNEUMOCOCCAL VACCINE 50+ YEARS Completed 1 07/25/2020, 03/12/2021, 12/20/2020, Additional history exists ZOSTER VACCINE Completed 05/24/2021, 02/22, 03/07/2021 FIT-DNA Q 3 years Discontinued FIT/FOBT Q 1 year Discontinued Flex Sig/CT Colonography Q 5 years Discontinued Medical Devices Implanted Type Area Senior Packaging Engineer Device Identifier Shelf Expiration Date Model / Serial / Lot Cath Dialysis Glidepath 14.5fr 23cm [facility] [id number] - [id number] Implanted:Qty : 1 on 04/01/2024 by Kim Flowers MD at [facility] Catheter Right: Chest BARD NUVIA VASC [id number] 09/20/2025 [id number] / / [id number] Clip Ligating Horizon Red [id number] - [facility] [place] [id number] Implanted:Qty : 1 on 11/29/2024 by Klarissa Flowers MD at [facility] Clip Right: Arm [employer] [id number] 08/06/2029 [id number] / / [id number] Clip Ligating Horizon Med Ti 220300 - [facility] - [id number] Implanted:Qty : 1 on 11/29/2024 by Klarissa Flowers MD at [facility] Clip Right: Arm TELEFLEX- WECK CLOSURE SYS [id number] 05/30/2029 / / [id number] Party Plan Sales Director-D [place] Xt Hf Quad Mri [id number] Df4 Surescan Dttb1ez - [id number] Implanted:Qty : 1 on 01/19/2025 by Sotero Alejandro MD at [facility] Defibrillator N/A: Chest Wall [employer]- CARD RHYTHM MGMT [id number] 04/19/2026 [id number] / [id number] S / Graft Vasc Propaten [id number] - [id number] Implanted:Qty : 1 on 11/29/2024 by Klarissa Flowers MD at [facility] Graft Right: Arm [employer] [id number] 07/19/2027 [id number] / [id number] / Agent Hemostat Surgicel 2x3in - [id number] Implanted:Qty : 1 on 11/29/2024 by Klarissa Flowers MD at [facility] Hemostatic Right: Arm J[employer]J- [employer] [id number] 09/20/20281952S / / [id number] Lead Sprint Quattro Secure 62cm [id number] - [facility] - [id number] Implanted:Qty : 1 on 01/19/2025 by Sotero Alejandro MD at [facility] Lead N/A: Chest Wall [employer]- CRM - BULK BUY [id number] 10/20/2026 [id number] / [id number] V / Lead Attain 88cm St Vent Quad [id number] - [id number] Implanted:Qty : 1 on 01/19/2025 by Sotero Alejandro MD at [facility] Lead N/A: Chest Wall [employer]- CARD RHYTHM MGMT [id number] 08/25/2026 4798-88 / [id number] V / Pacemaker Procedures Procedure Name Priority Date/Time Associated Diagnosis Comments LIPID PANEL Routine 05/11/2025 9:52 AM ASSEMBLER TESTER Chronic combined systolic and diastolic CHF (congestive heart failure) (CMS/HCC) Sick sinus syndrome (CMS/HCC) Automatic implantable cardioverter-defibril lator in situ ASHD (arteriosclerotic heart disease) Hx of CABG ESRD (end stage renal disease) (CMS/HCC) Mixed hyperlipidemia SD PROGRAM EVAL, IMPLANT DEVICE CARDVERT/DEFIB,MULTI- LEAD W/IN GLOBAL Routine 05/09/2025 2:51 PM ASSEMBLER TESTER Sick sinus syndrome (CMS/HCC) Dilated cardiomyopathy (CMS/HCC) Chronic combined systolic and diastolic CHF (congestive heart failure) (CMS/HCC) Ischemic dilated cardiomyopathy (CMS/HCC) Automatic implantable cardioverter-defibril lator in situ LACTATE DEHYDROGENASE Routine 04/29/2025 10:25 AM ASSEMBLER TESTER CLL (chronic lymphocytic leukemia) (CMS/HCC) Thrombocytopenia COMPREHENSIVE METABOLIC PANEL Routine 04/29/2025 10:25 AM ASSEMBLER TESTER CLL (chronic lymphocytic leukemia) (CMS/HCC) Thrombocytopenia CBC WITH DIFFERENTIAL Routine 04/29/2025 10:25 AM ASSEMBLER TESTER CLL (chronic lymphocytic leukemia) (CMS/HCC) Thrombocytopenia COMPREHENSIVE METABOLIC PANEL Stat 03/21/2025 12:21 PM CDT CLL (chronic lymphocytic leukemia) (CMS/HCC) CBC WITH DIFFERENTIAL Stat 03/21/2025 12:21 PM CDT CLL (chronic lymphocytic leukemia) (CMS/HCC) LACTATE DEHYDROGENASE Routine 03/21/2025 12:16 PM CDT CLL (chronic lymphocytic leukemia) (CMS/HCC) URIC ACID Routine 03/21/2025 12:16 PM CDT CLL (chronic lymphocytic leukemia) (CMS/HCC) URIC ACID Routine 02/28/2025 10:41 AM CDT CLL (chronic lymphocytic leukemia) (CMS/HCC) LACTATE DEHYDROGENASE Routine 02/28/2025 10:41 AM CDT CLL (chronic lymphocytic leukemia) (CMS/HCC) COMPREHENSIVE METABOLIC PANEL Routine 02/28/2025 10:41 AM CDT CLL (chronic lymphocytic leukemia) (CMS/HCC) CBC WITH DIFFERENTIAL Routine 02/28/2025 10:41 AM CDT CLL (chronic lymphocytic leukemia) (CMS/HCC) SD PROGRAM EVAL, IMPLANT DEVICE CARDVERT/DEFIB,MULTI- LEAD W/IN GLOBAL Routine 02/16/2025 4:56 PM CDT Ischemic dilated cardiomyopathy (CMS/HCC) Chronic combined systolic and diastolic CHF (congestive heart failure) (CMS/HCC) Left ventricular ejection fraction of 21% to 40% Dilated cardiomyopathy (CMS/HCC) Sick sinus syndrome (CMS/HCC) Automatic implantable cardioverter-defibril lator in situ MICROALBUMIN/CREATINI NE RATIO, RANDOM UR Routine 03/29/2024 6:06 PM CDT HEMOGLOBIN A1C Routine 03/29/2024 1:24 AM CDT from Last 3 Months or Most Recently Relevant to Health Maintenance Results * LIPID PANEL (05/11/2025 9:52 AM ASSEMBLER TESTER) Pathologist [facility] CHOLESTEROL 123 <200 mg/dL [facility] HDL 52 > OR = 40 mg/dL [facility] TRIGLYCERIDE 49 <150 mg/dL [facility] LDL CALCULATED 57 mg/dL (calc) [facility] Comment: Reference range: <100 Desirable range <100 mg/dL for primary prevention; <70 mg/dL for patients with CHD or diabetic patients with > or = 2 CHD risk factors. LDL-C is now calculated using the Lara calculation, which is a validated novel method providing better accuracy than the Friedewald equation in the estimation of LDL-C. Rakan SS et al. ANGELA. 2013;310(19): 3573-6707 (http://education.[employer]/faq/FPS183) CHOL/HDL RATIO 2.4 <5.0 (calc) [facility] NON-HDL CHOLESTEROL 71 <130 mg/dL (calc) [facility] Comment: For patients with diabetes plus 1 major ASCVD risk factor, treating to a non-HDL-C goal of <100 mg/dL (LDL-C of <70 mg/dL) is considered a therapeutic option. Test Performed at: [facility] [address] Tawanda Roca MD Blood 05/11/2025 9:52 AM ASSEMBLER TESTER 05/11/2025 9:53 AM ASSEMBLER TESTER Lyndsey Dorsey SUBWAY TRAIN DRIVER CHEMISTRY ORDERABLES nal Result [facility] [phone] [address] * SD PROGRAM EVAL, IMPLANT DEVICE CARDVERT/DEFIB,MULTI-LEAD W/IN GLOBAL (05/09/2025 2:51 PM ASSEMBLER TESTER) Only the most recent of2 resultswithin the time period is included. 05/09/2025 2:51 PM ASSEMBLER TESTER Narrative INTERFACE SYSTEM - 05/09/2025 5:18 PM ASSEMBLER TESTER Office Device Check Report Date of Procedure: May 09, 2025 Events: Atrial: 0 (<0.1%) Ventricular: 1 NSVT episode, 1 second, 182 BPM, no therapy provided. Other Episodes: 0 Changes: Decreased RV ouptut to 2.0 V @ 0.4ms (adaptive) to optimize battery longevity and to maintain appropriate safety margin for RV pacing. Comments: Patient presents to Cardiac Device Office today for follow up wound check. left upper quadrant chest incision noted intact and well approximated. Area noted well healed per Dr. Alejandro's protocol. Suture line intact without redness, swelling, or drainage. Patient denies fever or chills. Normal multi chamber ICD function with stable thresholds and impedances. Battery reserve is 7.8 years. Presenting - Atrial Sensing and BiVenctriular Pacing, with Capture. Appropriate atrial tracking noted. Underlying - sinus bradycardia w/1st degree AV block. . Instructed patient re: incision care, arm restrictions and recommended follow up. Patient verbalized understanding of all instructions. Follow-up [facility], remote transmission, form home, 3 month, previously scheduled 05-26-2025. . See attached report for details. Procedure Note Provider, Historical - 05/09/2025 Office Device Check Report Date of Procedure: May 09, 2025 Events: Atrial: 0 (<0.1%) Ventricular: 1 NSVT episode, 1 second, 182 BPM, no therapy provided. Other Episodes: 0 Changes: Decreased RV ouptut to 2.0 V @ 0.4ms (adaptive) to optimizebattery longevity and to maintain appropriate safety margin for RV pacing. Comments: Patient presents to Cardiac Device Office today for follow up wound check.left upper quadrant chest incision noted intact and well approximated.Area noted well healed per Dr. Alejandro's protocol. Suture line intactwithout redness, swelling, or drainage. Patient denies fever or chills. Normal multi chamber ICD function with stable thresholds and impedances. Battery reserve is 7.8 years. Presenting - Atrial Sensing and BiVenctriular Pacing, with Capture.Appropriate atrial tracking noted. Underlying - sinus bradycardia w/1st degree AV block. . Instructed patient re: incision care, arm restrictions and recommendedfollow up. Patient verbalized understanding of all instructions. Follow-up [facility], remote transmission, form home, 3 month, previouslyscheduled 05-26-2025. . See attached report for details. Sotero Alejandro MD CARDIAC SERVICES ORDERABLES Edited Result - Final INTERFACE SYSTEM Refer to clinic/hospital department * (ABNORMAL) CBC WITH DIFFERENTIAL (04/29/2025 10:25 AM ASSEMBLER TESTER) Only the most recent of3 resultswithin the time period is included. WBC 28.4(H) 3.8 - 10.8 Thousand/ uL [facility] RBC 3.19(L) 4.20 - 5.80 Million/u L [facility] HEMOGLOBIN 10.4(L) 13.2 - 17.1 g/dL [facility] HEMATOCRIT 33.4(L) 38.5 - 50.0 % [facility] MCV 104.7(H) 80.0 - 100.0 fL [facility] MCH 32.6 27.0 - 33.0 pg [facility] MCHC 31.1(L) 32.0 - 36.0 g/dL [facility] Comment: For adults, a slight decrease in the calculated MCHC value (in the range of 30 to 32 g/dL) is most likely not clinically significant; however, it should be interpreted with caution in correlation with other red cell parameters and the patient's clinical condition. RDW 14.1 11.0 - 15.0 % [facility] PLATELETS 69(L) 140 - 400 Thousand/ uL [facility] MPV 9.9 7.5 - 12.5 fL [facility] NEUTROPHIL ABSOLUTE 1,732 1,500 - 7,800 cells/uL [facility] LYMPHOCYTE ABSOLUTE 26,270(H) 850 - 3,900 cells/uL [facility] MONOCYTE ABSOLUTE 85(L) 200 - 950 cells/uL [facility] EOSINOPHIL ABSOLUTE 256 15 - 500 cells/uL [facility] BASOPHILS ABSOLUTE 57 0 - 200 cells/uL [facility] NEUTROPHIL 6.1 % [facility] LYMPHOCYTES 92.5 % [facility] MONOCYTE 0.3 % [facility] EOSINOPHILS 0.9 % [facility] BASOPHILS 0.2 % [facility] COMMENT HEMATOLOGY [facility] Comment: Review of peripheral smear confirms automated results. Smudge cells present. Many atypical lymphocytes present. Macrocytosis 1 + Test Performed at: [facility] [address] [address] [facility] [place] [address] Tawanda Roca MD Blood 04/29/2025 10:2 5 AM ASSEMBLER TESTER 04/29/2025 10:25 AM ASSEMBLER TESTER Tom Becerril NP HEMATOLOGY ORDERABLES Final Result Performing Organization Address [facility]/ZIP Co de Phone Number [facility] [phone] [facility] [address] [place] [address] * LACTATE DEHYDROGENASE (04/29/2025 10:25 AM ASSEMBLER TESTER) Only the most recent of3 resultswithin the time period is included. Pathologist [facility] LD (LACTATE DEHYDROGENASE) 160 120 - 250 U/L [facility] Comment: Test Performed at: [facility] [address] [place] [address] [place] [address] Tawanda Roca MD Blood 04/29/2025 10:2 5 AM ASSEMBLER TESTER 04/29/2025 10:25 AM ASSEMBLER TESTER Tom Becerril NP CHEMISTRY ORDERABLES Final R esult Performing Organization Address [facility]/ZIP Co de Phone Number [facility] [phone] [facility] [address] [place] [phone] * (ABNORMAL) COMPREHENSIVE METABOLIC PANEL (04/29/2025 10:25 AM ASSEMBLER TESTER) Only the most recent of3 resultswithin the time period is included. [facility] GLUCOSE 204(H) 65 - 99 mg/dL [facility] Comment: Fasting reference interval For someone without known diabetes, a glucose value >125 mg/dL indicates that they may have diabetes and this should be confirmed with a follow-up test. BUN 25 7 - 25 mg/dL [facility] CREATININE 3.03(H) 0.70 - 1.22 mg/dL [facility] GFR 20(L) > OR = 60 mL/min/1.7 3m2 [facility] BUN/CREAT RATIO 8 6 - 22 (calc) [facility] SODIUM 139 135 - 146 mmol/L [facility] POTASSIUM 4.6 3.5 - 5.3 mmol/L [facility] CHLORIDE 101 98 - 110 mmol/L [facility] CO2 31 20 - 32 mmol/L [facility] CALCIUM 8.8 8.6 - 10.3 mg/dL [facility] TOTAL PROTEIN 5.8(L) 6.1 - 8.1 g/dL [facility] ALBUMIN 4.0 3.6 - 5.1 g/dL [facility] GLOBULIN 1.8(L) 1.9 - 3.7 g/dL (calc) [facility] ALBUMIN/GLOBULIN RATIO 2.2 1.0 - 2.5 (calc) [facility] BILIRUBIN TOTAL 1.1 0.2 - 1.2 mg/dL [facility] ALKALINE PHOSPHATASE 90 35 - 144 U/L [facility] AST 9(L) 10 - 35 U/L [facility] ALT 5(L) 9 - 46 U/L [facility] Comment: Test Performed at: [facility] [address] [address] [address] Tawanda Roca MD Blood 04/29/2025 10:2 5 AM ASSEMBLER TESTER 04/29/2025 10:25 AM ASSEMBLER TESTER us Tom Becerril NP CHEMISTRY ORDERABLES Final R esult [facility] [phone] [facility] [address] [address] [address] * URIC ACID (03/21/2025 12:16 PM CDT) Only the most recent of2 resultswithin the time period is included. URIC ACID 4.5 4.0 - 8.0 mg/dL [facility] Comment: Therapeutic target for gout patients: <6.0 mg/dL Test Performed at: [facility] [address] [address] [address] Tawanda Roca MD Blood 03/21/2025 12:1 6 PM CDT 03/21/2025 10:25 PM CDT us Umm Dotson DO CHEMISTRY ORDERABLES Fi nal Result [facility] [phone] [place] [address] [address] [place] [address] * (ABNORMAL) MICROALBUMIN/CREATININE RATIO, RANDOM UR (03/29/2024 [...] PM CDT Performing Organization Information: Site ID: [id number] Name: [facility] Address: [address] [place] [address] [place] [address] Director: Tawanda Roca MD us Jillian Monge MD URINE ORDERABLES Final Result Performing Organization Address [facility] Co de Phone Number [facility] * (ABNORMAL) HEMOGLOBIN A1C (03/29/2024 1:24 AM CDT) HEMOGLOBIN A1C 7.1(H) <=5.6 % 03/29/2024 12:00 PM CDT [facility] [employer] [facility] EST. AVG GLUCOSE, A1C 157 mg/dL 03/29/2024 12:00 PM CDT [facility] Blood Venipuncture / Unknown 03/29/2024 1:24 AM CDT 03/29/2024 1:51 AM CDT Narrative [facility] [employer] [facility] - 03/29/2024 12:00 PM CDT HGB A1C INTERPRETATION NORMAL: <5.7% PRE-DIABETES: 5.7 - 6.4% DIABETES: 6.5% OR GREATER us Jaciel Yuan MD CHEMISTRY ORDERABLES Final R esult Performing Organization Address [facility] Co de Phone Number [facility] CLIA # [id number] [address] [place] [phone] from Last 3 Months or Most Recently Relevant to Health Maintenance Insurance MEDICARE PART A AND B [facility] RX [facility] [employer] GENERIC COMMERCIAL Commercial [facility] [employer] * Guarantor: [facility] H (C) Account Type Relation to Patient Date of Phone Billing Address Corporate Other DEFAULT ADDRESS [place] [id number] [facility] [employer] Advance Directives For more information, please contact: [phone] * Full Code (Latest Code Status on File) Date Activated Date Inactivated Comments 02/07/2025 1:56 PM 02/07/2025 5:12 PM * Full Code Date Activated Date Inactivated Comments 01/19/2025 4:46 PM 01/20/2025 8:51 PM * Full Code Date Activated Date Inactivated Comments 01/19/2025 2:17 PM 01/19/2025 4:46 PM * Full Code Date Activated Date Inactivated Comments 01/19/2025 1:22 PM 01/19/2025 2:17 PM * Full Code Date Activated Date Inactivated Comments 01/19/2025 11:23 AM 01/19/2025 1:21 PM Care Teams [place] [employer] Relationship Specialty Start Date End Date Paula Sandoval MD [address] [place] [address] PCP - General Family Practice 10/18/24
[2025-05-18 21:14] VITALS: BP 147/77; PULSE 89; TEMP 36.7; O2SAT 97; BMI 30.1
[2025-05-18 22:16] VITALS: BP 129/61; O2SAT 95
--- NOTE | 2025-05-18 22:35 | CTR_ITS ---
PROCEDURE INFORMATION: Exam: CT Abdomen And Pelvis Without Contrast Exam date and time: 05/18/2025 10:59 PM Age: 80 years old Clinical indication: Abdominal pain; Prior surgery; Surgery date: 6+ months; Surgery type: Appendectomy TECHNIQUE: Imaging protocol: Computed tomography of the abdomen and pelvis without contrast. Radiation optimization: All CT scans at this facility use at least one of these dose optimization techniques: automated exposure control; mA and/or kV adjustment per patient size (includes targeted exams where dose is matched to clinical indication); or iterative reconstruction. COMPARISON: CT abdomen pelvis [facility] [id number] 12/03/2024 10:31 PM RADIATION DOSE METRICS: Total DLP (mGy-cm): 1018.93 FINDINGS: Tubes, catheters and devices: Pacemaker leads. Pleural spaces: Small bilateral pleural effusions. Heart: Cardiomegaly. Liver: Normal. No mass. Gallbladder and biliary ducts: Cholelithiasis. Stone in the common bile duct measures 3 mm. Pancreas: Normal. No ductal dilation. Spleen: Splenomegaly, measuring up to 18 cm. Multiple calcified splenic granulomas. Adrenal glands: Normal. No mass. Kidneys and ureters: Dense calcified cystic mass arising from the right kidney measures 7.1 x 7.0 cm, similar when compared to prior exam from 12/03/2024. Stomach and bowel: Unremarkable. No obstruction. No mucosal thickening. Appendix: No evidence of appendicitis. Intraperitoneal space: Unremarkable. No free air. No significant fluid collection. Vasculature: Unremarkable. No abdominal aortic aneurysm. Lymph nodes: Unremarkable. No enlarged lymph nodes. Urinary bladder: Wall thickening of the urinary bladder, correlate for UTI. Reproductive: Unremarkable as visualized. Bones/joints: Sternotomy wires. Soft tissues: Unremarkable. CT/CT abdomen pelvis [facility] [id number] IMPRESSION: 1. Small bilateral pleural effusions. 2. Splenomegaly, measuring up to 18 cm. 3. Cholelithiasis. Stone in the common bile duct measures 3 mm. 4. Dense calcified cystic mass arising from the right kidney measures 7.1 x 7.0 cm, similar when compared to prior exam from 12/03/2024. 5. Wall thickening of the urinary bladder, correlate for UTI.
--- NOTE | 2025-05-18 22:53 | W.ED.ABDPA2 ---
HPI - Abdominal Pain General: Chief Complaint: Abdominal Pain Stated Complaint: severe abd pain L upper Time Seen by Provider: 05/18/25 22:16 History of Present Illness: 80-year-old male presents emergency room with left upper quadrant abdominal pain that began yesterday has been very nauseous with that he has not had any vomiting. He has been able to eat and drink without vomiting but does make him sick to his stomach has not noticed anything else that exacerbates or relieves it he does still make urine denies any dysuria urgency or frequency or hematuria no fever sweats or chills he did have a regular round of dialysis today with no difficulty. Associated Symptoms: Reports nausea and vomiting; Denies chills, dysuria and fever(s) Related Data Home Medications ?Medication ?Instructions ?Recorded ?Confirmed docusate sodium 100 mg capsule 100 mg PO DAILY PRN Constipation 12/02/19 03/31/25 (Colace) cholecalciferol (vitamin D3) 25 50 mcg PO DAILY 12/14/20 03/31/25 mcg (1,000 unit) capsule diclofenac sodium 1 % topical gel 4 g topical QID PRN Pain 05/02/21 03/31/25 insulin regular human 100 unit/mL See Rx Instructions .Route 05/02/21 03/31/25 injection solution (Novolin R .COMPLEX see pharmacy comments Regular U-100 Insulin) loratadine 10 mg tablet (Claritin) 10 mg PO DAILY 05/02/21 03/31/25 tamsulosin 0.4 mg capsule 0.8 mg PO QPM 10/18/21 03/31/25 fluticasone propionate 50 2 spray intranasal DAILY PRN 07/16/22 03/31/25 mcg/actuation nasal allergies spray,suspension (Flonase Allergy Relief) finasteride 5 mg tablet 5 mg PO DAILY 11/20/22 03/31/25 insulin glargine 100 unit/mL (3 50 unit SUBCUT QAM 11/20/22 03/31/25 mL) subcutaneous pen Held on 04/02/25. Instructions: hold if glucose <140 sevelamer carbonate 800 mg tablet 800 mg PO BID 05/12/24 03/31/25 atorvastatin 80 mg tablet 80 mg PO QPM 01/13/25 03/31/25 carvedilol 6.25 mg tablet See Rx Instructions .Route .COMPLEX 01/13/25 03/31/25 folic acid 1 mg tablet 1 mg PO DAILY 01/13/25 03/31/25 furosemide 80 mg tablet 80 mg PO QAM 01/13/25 03/31/25 isosorbide mononitrate 30 mg 30 mg PO QAM 01/13/25 03/31/25 tablet,extended release 24 hr nitroglycerin 0.4 mg sublingual 0.4 mg sublingual Q5M PRN heart 01/13/25 03/31/25 tablet issues pantoprazole 40 mg tablet,delayed 40 mg PO DAILY 01/13/25 03/31/25 release pirtobrutinib 50 mg tablet 50 mg PO DAILY 01/13/25 03/31/25 Previous Rx's ?Medication ?Instructions ?Recorded doxycycline monohydrate 100 mg 100 mg PO BID #10 tabs 04/02/25 tablet Allergies Allergy/AdvReac Type Severity Reaction Status Date / Time allopurinol Allergy ALGY-Rash Verified 05/18/25 21:20 Iodinated Contrast Media Allergy ALGY-Hives Verified 05/18/25 21:20 levofloxacin (From Levaquin) Allergy ADR-Confusi Verified 05/18/25 21:20 on metformin Allergy ADR-Fatigue Verified 05/18/25 21:20 d Review of Systems Const: Denies: fever(s) or chills Card: Denies: chest pain Resp: Denies: dyspnea GI: Reports: abdominal pain, nausea and vomiting : Denies: dysuria, urinary frequency or urinary urgency Musc: Denies: neck pain or back pain Skin/Breast: Denies: rash PFSH ED PFSH: Medical History Hyperuricemia History of COVID-19 (~12/2020) Anemia, unspecified Complex renal cyst BPH loc w urin obs/LUTS Diabetes HTN (hypertension) ASHD (arteriosclerotic heart disease) Dyslipidemia CKD (chronic kidney disease) CLL (chronic lymphocytic leukemia) Carotid stenosis, bilateral Surgical History H/O removal of testicle S/P appendectomy S/P CABG (coronary artery bypass graft) S/P PTCA (percutaneous transluminal coronary angioplasty) Status cardiac pacemaker Family History Mother , in her 70's Diabetes CAD (coronary artery disease) Father , at age 69 CAD (coronary artery disease) Hypertension Other Cancer Chronic kidney disease (CKD) Stroke Suicide Denies family history of Clotting disorder Dementia Hyperlipidemia Psychiatric illness Anesthesia complication Bleeding disorder Lung disease Social History Smoking and tobacco/nicotine status: former use of tobacco/nicotine Quit status (tobacco/nicotine): has quit using Year quit tobacco: 1989 Alcohol intake: never Substance/Drug Use: never Household members: spouse Marital status: Current occupational status: retired Physical Exam Const: GENERAL APPEARANCE: cooperative ORIENTATION/CONSCIOUSNESS: Yes awake, Yes oriented to person, Yes oriented to place and Yes oriented to time HENMT: COMMON NORMALS: normocephalic, atraumatic and hearing grossly normal bilaterally HEAD & SCALP: normocephalic and atraumatic Resp: COMMON NORMALS: normal respiratory effort, No retractions, No use of accessory muscles and clear to auscultation bilaterally AUSCULTATION: clear to auscultation bilaterally Cardio: COMMON NORMALS: regular rate, regular rhythm and No murmurs present (Cardio) RATE: regular rate RHYTHM: regular rhythm GI: COMMON NORMALS: No hepatosplenomegaly present AUSCULTATION: Yes normoactive bowel sounds PALPATION: Yes Tenderness to palpation present (GI) (epigastric), No Guarding due to palpation present (GI) and Yes No hepatosplenomegaly present Extremity: COMMON NORMALS: normal to inspection, capillary refill normal, no clubbing, cyanosis or edema, no calf tenderness and no pedal edema Neuro: SENSORIUM/ORIENTATION: Yes oriented to person, Yes oriented to place and Yes oriented to time Skin: COMMON NORMALS: no rashes or lesions noted GENERAL SKIN EXAM: no rashes or lesions noted Course Vital Signs: Vital signs: Vital Signs Temperature 98.1 F 05/18/25 21:14 Pulse Rate 85 05/19/25 00:55 Blood Pressure 116/49 05/19/25 00:55 Pulse Oximetry 94 05/19/25 00:55 Oxygen Delivery Me thod Room Air 05/19/25 00:55 MDM - Abdominal Pain Medical Decision Making Medical decision making Social determinants: Good family support I reviewed the patient's medical record. I reviewed the patient's current home meds Alternate historians: Family members and daughter Differential diagnosis abdominal pain peptic ulcer disease colitis diverticulitis bowel obstruction acute cholecystitis choledocholithiasis Lab Review: Labs reviewed as found on the chart patient has leukocytosis with a elevated blast and increased lymphocytes. Liver functions and lipase are normal Imagin mm stone in common bile duct no dilation Assessment of risk: Level of risk: High Hospitalization considerations: Admit for choledocholithiasis, leukocytosis with blast crisis thrombocytopenia Reexamination: Abdominal pain unchanged Assessment and plan: Patient has acute choledocholithiasis. Will transfer patient will need ERCP and GI. She he has been cultured lactic acid is normal and he has been given a dose of Zosyn Medical Records I reviewed the patient's medical records. Lab Data I reviewed the patient's lab results. 05/18/25 22:45 05/18/25 22:45 Labs/Radiology: Radiology Impressions Abdomen/Pelvis CT 05/18/25 22:35 IMPRESSION: 1. Small bilateral pleural effusions. 2. Splenomegaly, measuring up to 18 cm. 3. Cholelithiasis. Stone in the common bile duct measures 3 mm. 4. Dense calcified cystic mass arising from the right kidney measures 7.1 x 7.0 cm, similar when compared to prior exam from 12/03/2024. 5. Wall thickening of the urinary bladder, correlate for UTI. Laboratory Results WBC 23.35 10^3/uL (3.29-11.43) H 05/18/25 22:45 RBC 3.28 10^6/uL (3.85-5.65) L 05/18/25 22:45 Hgb 10.40 g/dL (11.27-16.99) L 05/18/25 22:45 Hct 33.3 % (37-53) L 05/18/25 22:45 MCV 101.5 fl (82-101) H 05/18/25 22:45 MCH 31.7 pg (27-33) 05/18/25 22:45 MCHC 31.2 g/dL (30-55) 05/18/25 22:45 RDW 16.2 % (12.1-15.1) H 05/18/25 22:45 Plt Count 48 10^3/cmm (157-399) L 05/18/25 22:45 MPV 11.6 fL (7.4-10.4) H 05/18/25 22:45 Lymph % (Auto) Not Reportable 05/18/25 22:45 [place] % (Auto) Not Reportable 05/18/25 22:45 Lymph # (Auto) Not Reportable 05/18/25 22:45 [place] # (Auto) Not Reportable 05/18/25 22:45 Total Counted 100 (0-100) 05/18/25 22:45 Atypical Lymphs % 20.0 % (0-5) H 05/18/25 22:45 Segmented Neutrophils 10 % 05/18/25 22:45 Band Neutrophils Not Reportable 05/18/25 22:45 Absolute Lymphocytes 16.1 10^3/cmm (1.2-3.4) H 05/18/25 22:45 Lymphocytes (Manual) 49 % 05/18/25 22:45 Monocytes (Manual) 3.0 % 05/18/25 22:45 Absolute Monocytes 0.7 10^3/cmm (0.1-0.6) H 05/18/25 22:45 Eosinophils (Manual) 0 % 05/18/25 22:45 Absolute Eosinophils 0.0 10^3/cmm (0.0-0.7) 05/18/25 22:45 Basophils (Manual) 0.0 % 05/18/25 22:45 Absolute Basophils 0.0 10^3/cmm (0.0-0.2) 05/18/25 22:45 Blast Cells 18 % (0-0) H* 05/18/25 22:45 Platelet Estimate Decreased (Normal) 05/18/25 22:45 Anisocytosis Trace 05/18/25 22:45 Sodium 138 mmol/L (136-145) 05/18/25 22:45 Potassium 4.7 mmol/L (3.5-5.1) 05/18/25 22:45 Chloride 99 mmol/L (98-107) 05/18/25 22:45 Carbon Dioxide 30 mmol/L (22-29) H 05/18/25 22:45 Anion Gap 13.7 (5-19) 05/18/25 22:45 BUN 26 mg/dL (8-23) H 05/18/25 22:45 Creatinine 2.7 mg/dL (0.7-1.2) H 05/18/25 22:45 GFR Calculation Not Reportable 05/18/25 22:45 Glucose 123 mg/dL (65-115) H 05/18/25 22:45 Calculated Osmolality 292 mOsm/kg (285-295) 05/18/25 22:45 Lactic Acid 0.9 mmol/L (0.5-2.2) 05/19/25 01:20 Calcium 9.2 mg/dL (8.5-10.5) 05/18/25 22:45 Total Bilirubin 0.8 mg/dL (0.15-1.2) 05/18/25 22:45 AST 8 U/L (0-40) 05/18/25 22:45 ALT 6 U/L (0-41) 05/18/25 22:45 Alkaline Phosphatase 100 U/L (40-130) 05/18/25 22:45 Total Protein 6.1 g/dL (6.6-8.7) L 05/18/25 22:45 Albumin 4.1 g/dL (3.5-5.2) 05/18/25 22:45 Globulin 2.0 g/dL (1.3-4.6) 05/18/25 22:45 Lipase 19 U/L (13-60) 05/18/25 22:45 Urine Color Dark yellow (Yellow) A 05/18/25 23:50 Urine Appearance Clear (CLEAR) 05/18/25 23:50 Urine pH 7.0 (5-7) 05/18/25 23:50 Ur Specific [place] 1.017 (1.005-1.030) 05/18/25 23:50 Urine Protein 3+ (Negative) A 05/18/25 23:50 Urine Glucose (UA) Negative (Normal) 05/18/25 23:50 Urine Ketones Trace (Negative) 05/18/25 23:50 Urine Blood Negative (Negative) 05/18/25 23:50 Urine Nitrate Negative (Negative) 05/18/25 23:50 Urine Bilirubin Negative (Negative) 05/18/25 23:50 Urine Urobilinogen 1.0 mg/dL (Negative) 05/18/25 23:50 Ur Leukocyte Esterase 1+ (Negative) A 05/18/25 23:50 Urine RBC 0-2 /hpf (0-2) 05/18/25 23:50 Urine WBC 6-10 /hpf (0-5) 05/18/25 23:50 Ur Squamous Epith Cells 0-5 /hpf (0-5) 05/18/25 23:50 Amorphous Sediment Not Reportable 05/18/25 23:50 Urine Bacteria None seen /hpf (NONE) 05/18/25 23:50 Hyaline Casts 26.47 /lpf 05/18/25 23:50 All radiology interpretation(s) finalized by discharge Discharge Plan Discharge Patient Disposition: Xfer Short-Term Hosp Clinical Impression: Choledocholithiasis with acute cholecystitis, Chronic lymphocytic leukemia Condition: Stable Referrals: Paula Sandoval MD [Primary Care Provider, Family Practice] Patient Instructions: Abdominal Pain (ED) Print Language: [place] Islander Coding Level of Care Code ED Senior Salesforce Developer for Jordin Moreno
[2025-05-18 22:59] LABS: Hematocrit 33.3 % (37-53); Hemoglobin 10.40 g/dL (11.27-16.99); Mean Corpuscular HGB Conc 31.2 g/dL (30-55); Mean Corpuscular Hemoglobin 31.7 pg (27-33); Mean Corpuscular Volume 101.5 fl (82-101); Platelet Count 48 10^3/cmm (157-399); Red Blood Count 3.28 10^6/uL (3.85-5.65); White Blood Count 23.35 10^3/uL (3.29-11.43)
[2025-05-18 23:14] LABS: Alanine Aminotransferase 6 U/L (0-41); Albumin Level 4.1 g/dL (3.5-5.2); Alkaline Phosphatase 100 U/L (40-130); Anion Gap 13.7 (5-19); Aspartate Amino Transferase 8 U/L (0-40); Blood Urea Nitrogen 26 mg/dL (8-23); Calcium 9.2 mg/dL (8.5-10.5); Carbon Dioxide 30 mmol/L (22-29); Chloride 99 mmol/L (98-107); Globulin 2.0 g/dL (1.3-4.6); Glucose 123 mg/dL (65-115); Lipase 19 U/L (13-60); Osmolality Calculated 292 mOsm/kg (285-295); Potassium 4.7 mmol/L (3.5-5.1); Sodium 138 mmol/L (136-145); Total Protein 6.1 g/dL (6.6-8.7)
[2025-05-18 23:49] LABS: Absolute Segmented Neutrophil 2.3 10/cmm (1.6-7.1); Atypical Lymphs 20.0 % (0-5); Slide Review Slide Review Perform; Total Cells Counted 100 (0-100)
[2025-05-18 23:50] LABS: Anisocytosis Trace
[2025-05-19 00:05] LABS: Glucose Urine UA Negative (Normal); Nitrate Urine Negative (Negative); Specific Gravity, Urine 1.017 (1.005-1.030)
[2025-05-19 00:08] LABS: Add Urine Microscopic? YES
[2025-05-19 00:55] VITALS: BP 116/49; PULSE 85; O2SAT 94
[2025-05-19] MEDS: piperacillin-tazobactam 3.375 GM in sodium chloride 0.9% (plus) 50 ML IV (01:39)
[2025-05-19 01:54] LABS: Lactic Sepsis W/Reflex 0.9 mmol/L (0.5-2.2)
[2025-05-19 02:48] VITALS: BP 126/63; PULSE 84; RESP 14; O2SAT 94
[2025-05-19 03:57] VITALS: BP 130/70; PULSE 86; RESP 14; O2SAT 93
== END 2025-05-19 04:00 | disposition short-term general hospital (02) ==
PROVIDERS: Emergency Provider Family Medicine; PCP Family Medicine
DX: C91.10 Chronic lymphocytic leukemia of B-cell type not having achieved remission (principal); K80.42 Calculus of bile duct with acute cholecystitis without obstruction; Z87.891 Personal history of nicotine dependence; Z95.1 Presence of aortocoronary bypass graft; E78.5 Hyperlipidemia, unspecified; E11.22 Type 2 diabetes mellitus with diabetic chronic kidney disease; I12.9 Hypertensive chronic kidney disease with stage 1 through stage 4 chronic kidney disease, or unspecified chronic kidney disease; N18.9 Chronic kidney disease, unspecified
CPT/HCPCS: 36415; 36416; 74176; 80053; 81001; 82962; 83605; 83690; 85007; 85025; 87040; 96365; 99285; J2543; J9999

== ENCOUNTER 2025-05-30 09:05 | Emergency (ER) | payer OTHER, SELFPAY ==
[2025-05-30 09:15] VITALS: BP 118/56; PULSE 85; TEMP 37.2; O2SAT 95; BMI 30.1
--- NOTE | 2025-05-30 09:35 | XR_ITS ---
WS: [id number] XR chest 1V portable [id number] REASON FOR EXAM: uri symptoms FINDINGS: Chest is unchanged compared to 03/31/2025. Cardiac device of the left chest with trans left subclavian vein leads to the right atrium and right ventricular apex. Sternal sutures. Mild cardiomegaly. Calcified granulomatous disease in both hemithoraces. Hypoexpanded lungs with reticular/linear opacities in the lung bases presumably representing a combination of the small areas of atelectasis and chronic interstitial change accentuated by hypoventilation. Probable complete tear of the right rotator cuff tendon. XR/XR chest 1V portable [id number] IMPRESSION: Stable abnormal chest as above.
--- NOTE | 2025-05-30 09:52 | W.ED.FEVER ---
HPI - Fever General: Chief Complaint: Fever Stated Complaint: fever with drain Time Seen by Provider: 05/30/25 09:24 Source: patient Mode of arrival: ambulatory Limitations: no limitations History of Present Illness: Patient is an 80-year-old male with past medical history of CLL, chronic kidney disease on dialysis, and recent biliary drain placed at [facility] in [place] secondary to gallstone cholecystitis, presenting to the emergency department for fevers today. Family states that providers at [facility] in [place] told him to present to the ER immediately with any fevers, patient notes along with this he has felt generally ill and has been nauseous. Does note some abdominal pain, somewhat relieved at this time secondary to him taking 500 mg Tylenol prehospital which also broke his fever. Current temp 98.9, rest of his vitals are stable and overall nontoxic-appearing. There is been no reports of pathologic draining, he has a leg bag attached and this is reportedly draining adequately and dressing changes have been changed as indicated. No vomiting or diarrhea. He does note general upper respiratory symptoms as well as sick contact exposure to spouse, and tells me he is prone to pneumonia. Otherwise he is stable appearing at this time, no other complaints. Patient is currently Friday dialysis, has an appointment at 1130 today. Patient is currently on Augmentin. MD elicited complaint: fever Pertinent past history: immunosuppression and other (CLL, chronic kidney disease on dialysis) Associated symptoms: Reports abdominal pain and nausea; Deny flank pain, chills, chest pain, diarrhea, dysuria, headache(s) or vomiting Treatments prior to arrival fever: acetaminophen Related Data Home Medications ?Medication ?Instructions ?Recorded ?Confirmed docusate sodium 100 mg capsule 100 mg PO DAILY PRN Constipation 12/02/19 03/31/25 (Colace) cholecalciferol (vitamin D3) 25 50 mcg PO DAILY 12/14/20 03/31/25 mcg (1,000 unit) capsule diclofenac sodium 1 % topical gel 4 g topical QID PRN Pain 05/02/21 03/31/25 insulin regular human 100 unit/mL See Rx Instructions .Route 05/02/21 03/31/25 injection solution (Novolin R .COMPLEX see pharmacy comments Regular U-100 Insulin) loratadine 10 mg tablet (Claritin) 10 mg PO DAILY 05/02/21 03/31/25 tamsulosin 0.4 mg capsule 0.8 mg PO QPM 10/18/21 03/31/25 fluticasone propionate 50 2 spray intranasal DAILY PRN 07/16/22 03/31/25 mcg/actuation nasal allergies spray,suspension (Flonase Allergy Relief) finasteride 5 mg tablet 5 mg PO DAILY 11/20/22 03/31/25 insulin glargine 100 unit/mL (3 50 unit SUBCUT QA 11/20/22 03/31/25 mL) subcutaneous pen Held on 04/02/25. Instructions: hold if glucose <140 sevelamer carbonate 800 mg tablet 800 mg PO BID 05/12/24 03/31/25 atorvastatin 80 mg tablet 80 mg PO QPM 01/13/25 03/31/25 carvedilol 6.25 mg tablet See Rx Instructions .Route .COMPLEX 01/13/25 03/31/25 folic acid 1 mg tablet 1 mg PO DAILY 01/13/25 03/31/25 furosemide 80 mg tablet 80 mg PO QAM 01/13/25 03/31/25 isosorbide mononitrate 30 mg 30 mg PO QAM 01/13/25 03/31/25 tablet,extended release 24 hr nitroglycerin 0.4 mg sublingual 0.4 mg sublingual Q5M PRN heart 01/13/25 03/31/25 tablet issues pantoprazole 40 mg tablet,delayed 40 mg PO DAILY 01/13/25 03/31/25 release pirtobrutinib 50 mg tablet 50 mg PO DAILY 01/13/25 03/31/25 Previous Rx's ?Medication ?Instructions ?Recorded doxycycline monohydrate 100 mg 100 mg PO BID #10 tabs 04/02/25 tablet hydrocodone 5 mg-acetaminophen 325 1 tab PO Q8H PRN pain #14 tabs 05/30/25 mg tablet nirmatrelvir 150 mg (6)-ritonavir See Rx Instructions PO .COMPLEX 05/30/25 100 mg (5) tablets in a dose pack #11 ea (Paxlovid) ondansetron 4 mg disintegrating 4 mg PO TID PRN nausea and 05/30/25 tablet vomiting #30 tabs Allergies Allergy/AdvReac Type Severity Reaction Status Date / Time allopurinol Allergy ALGY-Rash Verified 05/30/25 09:21 Iodinated Contrast Media Allergy ALGY-Hives Verified 05/30/25 09:21 levofloxacin (From Levaquin) Allergy ADR-Confusi Verified 05/30/25 09:21 on metformin Allergy ADR-Fatigue Verified 05/30/25 09:21 d Review of Systems General: Reports: 10 or more systems reviewed and unremarkable except in HPI and below Const: Reports: fever(s), fatigue and malaise; Denies: chills Eyes: Denies: change in vision Card: Denies: chest pain, palpitations, swelling of feet/ankles or lightheadedness Resp: Reports: non-productive cough ( URI sx ); Denies: dyspnea, productive cough or wheezing GI: Reports: abdominal pain and nausea; Denies: vomiting, diarrhea or constipation : Denies: flank pain, difficulty urinating, dysuria or urinary frequency Musc: Denies: neck pain, back pain or joint pain Skin/Breast: Denies: rash Neuro: Denies: headache(s), numbness in extremities or weakness in extremities PFSH ED PFSH: Medical History Hyperuricemia History of COVID-19 (~12/2020) Anemia, unspecified Complex renal cyst BPH loc w urin obs/LUTS Diabetes HTN (hypertension) ASHD (arteriosclerotic heart disease) Dyslipidemia CKD (chronic kidney disease) CLL (chronic lymphocytic leukemia) Carotid stenosis, bilateral Surgical History H/O removal of testicle S/P appendectomy S/P CABG (coronary artery bypass graft) S/P PTCA (percutaneous transluminal coronary angioplasty) Status cardiac pacemaker Family History Mother , in her 70's Diabetes CAD (coronary artery disease) Father , at age 69 CAD (coronary artery disease) Hypertension Other Cancer Chronic kidney disease (CKD) Stroke Suicide Denies family history of Clotting disorder Dementia Hyperlipidemia Psychiatric illness Anesthesia complication Bleeding disorder Lung disease Social History Smoking and tobacco/nicotine status: former use of tobacco/nicotine Quit status (tobacco/nicotine): has quit using Year quit tobacco: 1989 Alcohol intake: never Substance/Drug Use: never Household members: spouse Marital status: Current occupational status: retired Physical Exam Const: COMMON NORMALS: no acute distress, patient oriented x3 and no limitations GENERAL APPEARANCE: cooperative, comfortable and well developed ORIENTATION/CONSCIOUSNESS: Yes awake, Yes oriented to person, Yes oriented to place and Yes oriented to time OTHER: nontoxic HENMT: COMMON NORMALS: normocephalic, atraumatic and hearing grossly normal bilaterally HEAD & SCALP: normocephalic and atraumatic Eye: COMMON NORMALS: Equal, round and reactive pupils present, EOMs intact bilaterally and conjunctivae normal CONJUNCTIVA: Yes conjunctivae normal SCLERA: sclerae normal PUPIL: Yes Equal, round and reactive pupils present OTHER: no scleral icterus Neck/C-Spine: COMMON NORMALS: full ROM, supple and no JVD Resp: COMMON NORMALS: normal respiratory effort, No retractions, No use of accessory muscles and clear to auscultation bilaterally AUSCULTATION: clear to auscultation bilaterally Cardio: COMMON NORMALS: no JVD, regular rate, regular rhythm, No clicks present (Cardio), No murmurs present (Cardio) and No rub (Cardio) RATE: regular rate RHYTHM: regular rhythm GI: COMMON NORMALS: Soft to palpation PALPATION: Yes Soft to palpation RECTAL EXAM: Yes deferred OTHER: Biliary drain right upper quadrant, appearing well with no indication of surrounding cellulitis or pathological drainage. There is attached leg bag draining possibly blood-tinged bile Extremity: COMMON NORMALS: normal to inspection, full ROM and capillary refill normal Neuro: COMMON NORMALS: patient oriented x3, moves all extremities, no focal motor deficits and no sensory deficits noted SENSORIUM/ORIENTATION: Yes oriented to person, Yes oriented to place and Yes oriented to time Skin: COMMON NORMALS: no rashes or lesions noted GENERAL SKIN EXAM: no rashes or lesions noted Course Vital Signs: Vital signs: Vital Signs Temperature 98.9 F 05/30/25 09:15 Pulse Rate 82 05/30/25 10:17 Respiratory Rate 16 05/30/25 09:58 Blood Pressure 132/59 05/30/25 10:17 Pulse Oximetry 96 05/30/25 10:17 Oxygen Delivery Me thod Room Air 05/30/25 10:17 MDM - Fever Medical Decision Making This patient had presented for evaluation of onset of fevers this morning, subjective at 100.4 however of note recently had biliary drain placed after transfer to [facility] interventional radiology. He has been on Augmentin for this, was told to present to the ED with the onset of fevers. Patient just notes feeling generally ill as well, positive sick contact exposure to spouse. Clinically nontoxic-appearing at time of examination with vitals being stable, no cellulitic changes in regards to the drain and no pathologic drainage appreciated at this time. He does have a history of CLL, when taking this into account his CBC is baseline. Also end-stage renal disease on dialysis, his dialysis appointment was supposed to be today at 1130. All of his metabolic panel is also stable. Specifically his CRP ESR and lactic acid are of no significance, lipase normal as well, and notably he is COVID-positive which likely explains his acute onset of feeling ill and fevers. Has been afebrile here in the emergency department, was given Tylenol and after IV established was administered fluids, morphine, and Zofran. He is diabetic, sugars have been within normal range and he has been able to tolerate p.o. here in the ED. Also has been oxygenating well on room air, and with the clinical stability and diagnosis of COVID do not feel that he would meet any admission criteria at this time or needs emergent transfer back to [facility] interventional [facility]. Did rule out any postoperative pathologic changes with CT abdomen pelvis without contrast. Was able to get him in to his dialysis today, and being that he is acutely onset of symptoms and with his comorbid conditions, and at patient request we will start on Paxlovid renally dosed. Reviewed his med list did not appear that he was on any contraindicating medications, asked him about his atorvastatin and he has stated he does not take this anymore. With any significant worsening of condition, worsening breathing, chest pain, or vomiting or diarrhea he is encouraged to come back to the emergency department for reevaluation however at this time stable for discharge. Family in the room does agree with this plan. Lab Data 05/30/25 09:44 05/30/25 09:44 Radiology Impressions Chest X-Ray 05/30/25 09:35 IMPRESSION: Stable abnormal chest as above. Abdomen/Pelvis CT 05/30/25 10:12 IMPRESSION: 1. Cholecystotomy tube has been placed since the prior CT of 05/18/2025. 2. Gallbladder is collapsed around stones within the gallbladder. No collection surrounding the cholecystotomy drain. 3. Previously described common bile duct stone is no longer identified. 4. Small bilateral pleural effusions have increased slightly in size since 05/18/2025. Mild pulmonary venous congestion. 5. Splenomegaly. 6. Hepatic and splenic granulomata. 7. Mild edema and fat stranding in the retroperitoneum surrounding the aorta near the level of the renal arteries. There are also small lymph nodes which have become more prominent. Probably reactive adenopathy. 8. No abscess is identified. 9. Reidentified is a solid mass in the LEFT renal pelvis which is slowly increasing in size since 2020. This mass has been previously described. 10. Peripherally calcified mass RIGHT kidney is stable. 11. Small amount of free fluid in the pelvis. Laboratory Results WBC 4.19 10^3/uL (3.29-11.43) 05/30/25 09:44 RBC 3.17 10^6/uL (3.85-5.65) L 05/30/25 09:44 Hgb 10.10 g/dL (11.27-16.99) L 05/30/25 09:44 Hct 32.2 % (37-53) L 05/30/25 09:44 MCV 101.6 fl (82-101) H 05/30/25 09:44 MCH 31.9 pg (27-33) 05/30/25 09:44 MCHC 31.4 g/dL (30-55) 05/30/25 09:44 RDW 16.6 % (12.1-15.1) H 05/30/25 09:44 Plt Count 93 10^3/cmm (157-399) L 05/30/25 09:44 MPV 9.3 fL (7.4-10.4) 05/30/25 09:44 Lymph % (Auto) Not Reportable 05/30/25 09:44 Sharkey % (Auto) Not Reportable 05/30/25 09:44 Lymph # (Auto) Not Reportable 05/30/25 09:44 Sharkey # (Auto) Not Reportable 05/30/25 09:44 Total Counted 100 (0-100) 05/30/25 09:44 Atypical Lymphs % 13.0 % (0-5) H 05/30/25 09:44 Absolute Neutrophils 2.4 10^3/cmm (1.4-6.5) 05/30/25 09:44 Segmented Neutrophils 51 % 05/30/25 09:44 Band Neutrophils 6.0 % 05/30/25 09:44 Absolute Lymphocytes 1.6 10^3/cmm (1.2-3.4) 05/30/25 09:44 Lymphocytes (Manual) 26 % 05/30/25 09:44 Monocytes (Manual) 1.0 % 05/30/25 09:44 Absolute Monocytes 0.0 10^3/cmm (0.1-0.6) L 05/30/25 09:44 Eosinophils (Manual) 1 % 05/30/25 09:44 Absolute Eosinophils 0.0 10^3/cmm (0.0-0.7) 05/30/25 09:44 Basophils (Manual) 0.0 % 05/30/25 09:44 Absolute Basophils 0.0 10^3/cmm (0.0-0.2) 05/30/25 09:44 Blast Cells 2 % (0-0) H* 05/30/25 09:44 Platelet Estimate Decreased (Normal) 05/30/25 09:44 ESR 12 mm/hr (0-10) H 05/30/25 09:44 PT 15.90 SECONDS (12.1-14.9) H 05/30/25 09:44 INR 1.19 (0.8-1.2) 05/30/25 09:44 APTT 29.9 SECONDS (23.9-36.7) 05/30/25 09:44 Sodium 136 mmol/L (136-145) 05/30/25 09:44 Potassium 4.5 mmol/L (3.5-5.1) 05/30/25 09:44 Chloride 96 mmol/L (98-107) L 05/30/25 09:44 Carbon Dioxide 29 mmol/L (22-29) 05/30/25 09:44 Anion Gap 15.5 (5-19) 05/30/25 09:44 BUN 27 mg/dL (8-23) H 05/30/25 09:44 Creatinine 4.3 mg/dL (0.7-1.2) H 05/30/25 09:44 GFR Calculation Not Reportable 05/30/25 09:44 Glucose 115 mg/dL (65-115) 05/30/25 09:44 POC Glucose 79 mg/dL (70-110) 05/30/25 10:59 Calculated Osmolality 288 mOsm/kg (285-295) 05/30/25 09:44 Lactic Acid 1.4 mmol/L (0.5-2.2) 05/30/25 09:44 Calcium 8.8 mg/dL (8.5-10.5) 05/30/25 09:44 Total Bilirubin 1.2 mg/dL (0.15-1.2) 05/30/25 09:44 AST 8 U/L (0-40) 05/30/25 09:44 ALT 6 U/L (0-41) 05/30/25 09:44 Alkaline Phosphatase 108 U/L (40-130) 05/30/25 09:44 C-Reactive Protein 6.4 mg/L (0.0-4.9) H 05/30/25 09:44 Total Protein 5.9 g/dL (6.6-8.7) L 05/30/25 09:44 Albumin 4.0 g/dL (3.5-5.2) 05/30/25 09:44 Globulin 1.9 g/dL (1.3-4.6) 05/30/25 09:44 Lipase 15 U/L (13-60) 05/30/25 09:44 Influenza A (PCR) Negative (Negative) 05/30/25 09:52 Influenza Type B (PCR) Negative (Negative) 05/30/25 09:52 RSV (PCR) Negative (Negative) 05/30/25 09:52 SARS-CoV-2 (PCR) Positive (Negative) A 05/30/25 09:52 All radiology interpretation(s) finalized by discharge Discharge Plan Discharge Patient Disposition: Home Clinical Impression: COVID-19 Condition: Stable Prescriptions: New Paxlovid 150 mg (6)- 100 mg (5) tablets,dose pack See Rx Instructions .ROUTE .COMPLEX Qty: 11 0RF Rx Instructions: orally per package directions ondansetron 4 mg tablet,disintegrating 4 mg PO TID PRN (Reason: nausea and vomiting) Qty: 30 0RF hydrocodone-acetaminophen 5-325 mg tablet 1 tab PO Q8H PRN (Reason: pain) Qty: 14 0RF No Action cholecalciferol (vitamin D3) 25 mcg (1,000 unit) capsule 50 mcg PO DAILY sevelamer carbonate 800 mg tablet 800 mg PO BID Rx Instructions: must administer with a meal/food finasteride 5 mg tablet 5 mg PO DAILY insulin glargine 100 unit/mL (3 mL) insulin pen 50 unit SUBCUT QAM docusate sodium [Colace] 100 mg Capsule 100 mg PO DAILY PRN (Reason: Constipation) fluticasone propionate [Flonase Allergy Relief] 50 mcg/actuation spray,suspension 2 spray INTRANASAL DAILY PRN (Reason: allergies) Novolin R Regular U100 Insulin 100 unit/mL Solution See Rx Instructions .ROUTE .COMPLEX Rx Instructions: sliding scale 3-18 units bid loratadine [Claritin] 10 mg Tablet 10 mg PO DAILY diclofenac sodium 1 % Gel 4 g TOPICAL QID PRN (Reason: Pain) tamsulosin 0.4 mg capsule 0.8 mg PO QPM atorvastatin 80 mg Tablet 80 mg PO QPM carvedilol 6.25 mg tablet See Rx Instructions .ROUTE .COMPLEX Rx Instructions: Take 1/2 tablet (3.125mg) by mouth daily but not on dailysis days. pirtobrutinib 50 mg Tablet 50 mg PO DAILY furosemide 80 mg Tablet 80 mg PO QAM Rx Instructions: except for dialysis days pantoprazole 40 mg tablet,delayed release (DR/EC) 40 mg PO DAILY nitroglycerin 0.4 mg Tablet, Sublingual 0.4 mg SUBLINGUAL Q5M PRN (Reason: heart issues) Rx Instructions: do not exceed 3 doses per episode folic acid 1 mg Tablet 1 mg PO DAILY isosorbide mononitrate 30 mg Tablet Extended Release 24 Hr 30 mg PO QAM doxycycline monohydrate 100 mg Tablet 100 mg PO BID Qty: 10 0RF Discharge Orders: Discharge ED (Routine); Ordered 05/30/25 Ordered By: Warren Archibald Referrals: Paula Sandoval MD [Primary Care Provider, Family Practice] Patient Instructions: Patient Portal & [place] Instructions Activity Restrictions/Additional Instructions: COVID-19 Discharge Instructions Diagnosis: COVID-19 (SARS-CoV-2 infection) Hospital Course: You were evaluated for symptoms related to COVID-19, which occurred one week after your biliary drain placement. Your biliary drain is functioning well. CT imaging of your abdomen and pelvis showed no concerning abnormalities, and all laboratory tests were reassuring. Your COVID-19 test was positive. Medications: New Medications: - Nirmatrelvir/ritonavir (Paxlovid): Take one 150 mg nirmatrelvir tablet with one 100 mg ritonavir tablet together once daily for 5 days. Take your dose at approximately the same time each day, with or without food. This dosing is adjusted for your kidney function. - Ondansetron: Take as prescribed for nausea. - Hydrocodone/acetaminophen (Lavelle 5 mg/325 mg): Take as prescribed for fever or pain. Hydrocodone is considered safe for use in patients with kidney disease when dosed appropriately. Important Medication Instructions: - Complete the full 5-day course of nirmatrelvir/ritonavir even if you start feeling better. - If you miss a dose within 8 hours of when you usually take it, take it as soon as you remember and continue your normal schedule. - Swallow all tablets whole; do not chew, break, or crush them. - On dialysis days: Take your nirmatrelvir/ritonavir dose after your dialysis session. - Avoid ibuprofen and other NSAIDs due to your kidney disease. Medication Interactions: Your current medications have been reviewed and do not have significant interactions with nirmatrelvir/ritonavir. However, if you start any new medications, supplements, or [id number] products during your treatment, contact your healthcare provider first to check for interactions. Isolation and Infection Control: - Stay home and isolate from others, including household members, for at least 5 days from symptom onset or until symptoms improve and you are fever-free for 24 hours without fever-reducing medications. - Wear a well-fitting mask if you must be around others. - Use a separate room with good ventilation if possible. - Avoid sharing personal items and maintain good hand hygiene. - Clean and disinfect frequently touched surfaces daily. Dialysis Arrangements: Continue your regular dialysis schedule. Your dialysis center has been notified of your COVID-19 diagnosis and will implement appropriate infection control measures. Monitoring and Follow-up: Seek immediate medical attention if you develop: - Difficulty breathing or shortness of breath - Persistent chest pain or pressure - Confusion or inability to stay awake - Bluish lips or face - Severe or worsening symptoms Contact your healthcare provider if: - Your symptoms worsen after initial improvement - You develop new symptoms - You have questions about your medications Follow-up Appointments: - Contact your primary care provider or manager of applications development within 3-5 days - Continue routine follow-up for your biliary drain as previously scheduled Additional Recommendations: - Monitor your temperature daily - Stay well-hydrated within your fluid restrictions - Rest as needed - Continue your prescribed diet for kidney disease, limiting salt to less than 2.3 g per day and following fluid restrictions of 1 to 1.5 L per day COVID-19 Rebound: Some patients may experience a return of symptoms or test positive again 2-8 days after initial recovery while taking nirmatrelvir/ritonavir. If this occurs, contact your healthcare provider and resume isolation precautions. Questions? If you have any questions or concerns, please contact your healthcare provider or dialysis center. Print Language: Lao Coding Level of Care Code ED Oncology Social Worker for Jordin Moreno
[2025-05-30 09:56] LABS: Hematocrit 32.2 % (37-53); Hemoglobin 10.10 g/dL (11.27-16.99); Mean Corpuscular HGB Conc 31.4 g/dL (30-55); Mean Corpuscular Hemoglobin 31.9 pg (27-33); Mean Corpuscular Volume 101.6 fl (82-101); Platelet Count 93 10^3/cmm (157-399); Red Blood Count 3.17 10^6/uL (3.85-5.65); White Blood Count 4.19 10^3/uL (3.29-11.43)
[2025-05-30] MEDS: ondansetron 2 mg/ML SDV 2 mL 4 MG IVP (09:57)
[2025-05-30 09:58] VITALS: RESP 16
[2025-05-30] MEDS: morphine 4 mg/mL SDV 1 mL IVP (09:58)
[2025-05-30 10:10] LABS: INR 1.19 (0.8-1.2); Partial Thromboplastin Time 29.9 SECONDS (23.9-36.7); Prothrombin Time 15.90 SECONDS (12.1-14.9)
--- NOTE | 2025-05-30 10:12 | CT_ITS ---
WS: [id number] CT ABDOMEN AND PELVIS NONCONTRAST HISTORY: ruq pain, recent surgery/biliary drain, fever, nausea TECHNIQUE: Imaging performed through the abdomen and pelvis. Coronal and sagittal reformats are submitted. All CT scans at [facility] use at least one of these dose optimization techniques: automated exposure control; mA and/or kV adjustment per patient size (includes targeted exams where dose is matched to clinical indication); or iterative reconstruction. DLP: 912.03 mGy.cm COMPARISON: 05/18/2025, 01/13/2025 Lower thorax: Small bilateral layering pleural effusions have increased in size since 05/18/2025. Mild pulmonary congestion. Heart is moderately enlarged. Prior CABG. Defibrillator and pacer wires are noted in the RIGHT heart. Hiatal hernia, small. Liver: Noncontrast liver with granuloma. No intrahepatic duct dilatation is identified. Gallbladder: Gallbladder is present and now contracted around stones. Cholecystotomy tube is been placed since 05/18/2025. Pigtail appears appropriate. There is no fluid collection along the course of the catheter. Previously described calcification in the distal common bile duct is no longer present. Common bile duct measures 10 mm. Pancreas: Normal as visualized. There is a small amount of fat infiltration surrounding the pancreatic head. Spleen: Enlarged spleen with granulomata. Spleen measures 18.7 cm in length. Adrenal glands: Normal. No mass. Right kidney: There is a large peripherally calcified heterogeneous mass associated with the RIGHT kidney which has been previously described. Mass measures 7.0 x 7.2 cm and is arising from the lateral kidney. There is slight compression upon the kidney. There is no obstruction. There are a few scattered too small to characterize hypodensities. Left kidney: Mild perinephric stranding. High density mass in the LEFT renal pelvis measures 4.0 x 3.2 cm. This is been previously described on prior CTs. Mass has slowly increased in size since 2020. Aorta: Moderate to severe atherosclerosis abdominal aorta. No aneurysm. Atherosclerosis continues into the common iliac arteries. Small central mesenteric lymph nodes are identified. Small retroperitoneal lymph nodes just below the level of the renal veins. There is mild inflammation and fat stranding surrounding these lymph nodes. GI tract: No GI tract obstruction. No colitis identified. Abdominal wall: Subcutaneous inflammation LEFT abdominal wall probably injection sites. No mass. Pelvis: There is mild presacral soft tissue thickening which was present on the most recent study. New since 2023. No mass or adenopathy. Small amount of free fluid in the pelvis. Osseous structures: Osteopenia. Degenerative scoliosis lumbar spine. CT/CT abdomen pelvis wo con [id number] IMPRESSION: 1. Cholecystotomy tube has been placed since the prior CT of 05/18/2025. 2. Gallbladder is collapsed around stones within the gallbladder. No collectio n surrounding the cholecystotomy drain. 3. Previously described common bile duct stone is no longer identified. 4. Small bilateral pleural effusions have increased slightly in size since . Mild pulmonary venous congestion. 5. Splenomegaly. 6. Hepatic and splenic granulomata. 7. Mild edema and fat stranding in the retroperitoneum surrounding the aorta n ear the level of the renal arteries. There are also small lymph nodes which hav e become more prominent. Probably reactive adenopathy. 8. No abscess is identified. 9. Reidentified is a solid mass in the LEFT renal pelvis which is slowly incre asing in size since 2020. This mass has been previously described. 10. Peripherally calcified mass RIGHT kidney is stable. 11. Small amount of free fluid in the pelvis.
[2025-05-30 10:14] LABS: Alanine Aminotransferase 6 U/L (0-41); Albumin Level 4.0 g/dL (3.5-5.2); Alkaline Phosphatase 108 U/L (40-130); Anion Gap 15.5 (5-19); Aspartate Amino Transferase 8 U/L (0-40); Blood Urea Nitrogen 27 mg/dL (8-23); Calcium 8.8 mg/dL (8.5-10.5); Carbon Dioxide 29 mmol/L (22-29); Chloride 96 mmol/L (98-107); Globulin 1.9 g/dL (1.3-4.6); Glucose 115 mg/dL (65-115); Lipase 15 U/L (13-60); Osmolality Calculated 288 mOsm/kg (285-295); Potassium 4.5 mmol/L (3.5-5.1); Sodium 136 mmol/L (136-145); Total Protein 5.9 g/dL (6.6-8.7)
[2025-05-30 10:15] LABS: Lactic Sepsis W/Reflex 1.4 mmol/L (0.5-2.2)
[2025-05-30 10:17] VITALS: BP 132/59; PULSE 82; O2SAT 96
[2025-05-30 10:24] LABS: Slide Review Slide Review Perform
[2025-05-30 10:28] LABS: Absolute Segmented Neutrophil 2.1 10/cmm (1.6-7.1); Atypical Lymphs 13.0 % (0-5); Band Neutrophils Absolute 0.3 10^3/cmm (0.0-1.2); Total Cells Counted 100 (0-100)
[2025-05-30 10:36] LABS: Respiratory Syncytial Virus Ce NEGATIVE (Negative)
[2025-05-30 10:50] LABS: SARS-CoV-2 PCR Positive (Negative)
--- OUTSIDE RECORDS SUMMARY | 2025-05-30 11:16 | XMS_ITS ---
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
--- OUTSIDE RECORDS SUMMARY | 2025-05-30 11:16 | XMS_ITS | Encounter Summary ---
Author Organization [facility] Address [address] [place] [address] Care Team Providers Care Steel Turner Name Role Phone Paula Sandoval MD Primary Care Provider + [phone] Encounter Details Date Type Department Care Team (Late st Contact Info) Description 05/12/2025 Results Follow-Up [facility] [address] [facility] [address] [place] [phone] Lyndsey Dorsey, MARCELLO [address] [facility] [address] [place] [address] LIPID PANEL Social History Tobacco [...] Care Team (Late st Contact Info) Description 06/06/2025 3:30 PM DIRECTOR LIFE INSURANCE Video Visit [facility] [place] [address] [facility] [address] [place] [phone] Mckenzie Merino, ALL [address] [place] [address] 06/08/2025 11:30 AM DIRECTOR LIFE INSURANCE Hospital Encounter [facility] [address] [place] [address] [place] [address] Klarissa Flowers MD [address] [facility] [address] [place] [phone] Greg Razo MD [address] [place] [phone] 07/18/2025 11:00 AM DIRECTOR LIFE INSURANCE Office Visit [facility] [address] [place] [address] Sotero Alejandro MD [address] [place] [address] Eliana Davis NP [address] [place] [phone] 08/03/2025 11:30 AM DIRECTOR LIFE INSURANCE Appointment [facility] [address] [place] [address] 08/10/2025 9:00 AM DIRECTOR LIFE INSURANCE Office Visit [facility] [place] [address] [place] [address] Umm Dotson, [address] [place] [address] 10/20/2025 8:00 AM CDT Procedure visit [facility] [address] [place] [address] Sotero Alejandro MD [address] [place] [address] 01/09/2026 1:00 PM CDT Office Visit [facility] [address] [place] [address] Warren Sweeney MD [address] [place] [address] Lyndsey Dorsey, MARCELLO [address] [place] [address] documented as of this encounter Visit Diagnoses Not on filedocumented in this encounter Care Teams Steel Turner Relationship Specialty Start Date End Date Paula Sandoval MD [address] [place] [phone] PCP - General Family Practice 10/18/24 documented as of this encounter
[2025-05-30 11:42] VITALS: BP 132/59; PULSE 59; O2SAT 97
== END 2025-05-30 11:44 | disposition home or self-care (01) ==
PROVIDERS: Emergency Provider Physician Assistant; PCP Family Medicine
DX: U07.1 COVID-19 (principal); Z11.52 Encounter for screening for COVID-19; Z79.4 Long term (current) use of insulin; Z87.891 Personal history of nicotine dependence; Z95.1 Presence of aortocoronary bypass graft; E78.5 Hyperlipidemia, unspecified; E11.22 Type 2 diabetes mellitus with diabetic chronic kidney disease; I12.9 Hypertensive chronic kidney disease with stage 1 through stage 4 chronic kidney disease, or unspecified chronic kidney disease; N18.9 Chronic kidney disease, unspecified; Z85.6 Personal history of leukemia
CPT/HCPCS: 36415; 36416; 71045; 74176; 80053; 82962; 83605; 83690; 85007; 85025; 85610; 85651; 85730; 86140; 87040; 87637; 96361; 96374; 99285; J2270; J2405; J7040; J9999

== ENCOUNTER 2025-05-30 16:11 | Inpatient (IN) | payer OTHER, MEDICARE, SELFPAY ==
[2025-05-30] VITALS (8 sets, daily range): BP systolic 124–134; BP diastolic 46–91; PULSE 68–92; RESP 16–26; TEMP 37.3–39.4; O2SAT 94–97; BMI 30.8; BMI 29.4
--- NOTE | 2025-05-30 16:12 | XR_ITS ---
WS: [id number] XR chest 1V portable [id number] REASON FOR EXAM: dyspnea/cough FINDINGS: Chest is unchanged compared to the examination of 9:37 a.m. 05/30/2025. No acute chest abnormality is identified. XR/XR chest 1V portable [id number] IMPRESSION: Stable chest as above.
--- NOTE | 2025-05-30 16:19 | ECG_ITS ---
[facility] Test Date: 2025-05-30 Pat Name: Valente Renae Department: Room: Gender: Male Legal Assistant: : 1945 Requested By: Javid Cain Order Number: [id number] Helen MD: Miguel Jin M.D. Measurements Intervals [place] Rate: 89 P: 50 VT: 152 QRS: 269 QRSD: 143 T: 82 QT: 406 QTc: 496 Interpretive Statements ELECTRONIC VENTRICULAR PACEMAKER VENTRICULAR-PACED RHYTHM ABNORMAL RHYTHM ECG Compared to ECG 04/01/2025 00:11:03 No significant changes Electronically Signed On 06-01-2025 22:35:06 BOX STORAGE WORKER by Miguel Jin M.D. [email or web address]
[2025-05-30 16:25] LABS: Hematocrit 32.2 % (37-53); Hemoglobin 10.00 g/dL (11.27-16.99); Mean Corpuscular HGB Conc 31.1 g/dL (30-55); Mean Corpuscular Hemoglobin 31.3 pg (27-33); Mean Corpuscular Volume 100.6 fl (82-101); Platelet Count 83 10^3/cmm (157-399); Red Blood Count 3.20 10^6/uL (3.85-5.65); White Blood Count 4.53 10^3/uL (3.29-11.43)
[2025-05-30 16:49] LABS: Slide Review Slide Review Perform
[2025-05-30 16:50] LABS: Alanine Aminotransferase 6 U/L (0-41); Albumin Level 4.0 g/dL (3.5-5.2); Alkaline Phosphatase 106 U/L (40-130); Anion Gap 16.5 (5-19); Aspartate Amino Transferase 9 U/L (0-40); Blood Urea Nitrogen 13 mg/dL (8-23); Calcium 8.9 mg/dL (8.5-10.5); Carbon Dioxide 29 mmol/L (22-29); Chloride 97 mmol/L (98-107); Globulin 2.3 g/dL (1.3-4.6); Glucose 114 mg/dL (65-115); Magnesium 1.8 mg/dL (1.7-2.3); Osmolality Calculated 287 mOsm/kg (285-295); Potassium 4.5 mmol/L (3.5-5.1); Sodium 138 mmol/L (136-145); Total Protein 6.3 g/dL (6.6-8.7)
[2025-05-30 16:51] LABS: Lactic Sepsis W/Reflex 2.3 mmol/L (0.5-2.2)
--- NOTE | 2025-05-30 17:07 | W.ED.SOB ---
HPI - SOB/Dyspnea General: Chief Complaint: Shortness of Breath/Dyspnea Stated Complaint: ams - lethargic Time Seen by Provider: 05/30/25 16:11 History of Present Illness: HPI Narrative: 80-year-old male presents to the emergency room with complaint of altered mental status and lethargy he was seen earlier today with COVID his sats at that time were good and he was discharged home patient is a history of mentation renal disease he was at dialysis. He began to become more more confused tried to stand while he was still hooked up to the machine. Ultimately they stopped his round of dialysis in our in about 5 to 10 minutes early because of his altered mental status. He arrives here he is requiring 2 L/min by nasal cannula. The report was that dialysis he was requiring up to 6 L/min by nasal cannula. Associated symptoms: Reports chest congestion; Deny abdominal pain, chest pain or fever(s) Related Data Home Medications ?Medication ?Instructions ?Recorded ?Confirmed docusate sodium 100 mg capsule 100 mg PO DAILY PRN Constipation 12/02/19 05/30/25 (Colace) cholecalciferol (vitamin D3) 25 50 mcg PO DAILY 12/14/20 05/30/25 mcg (1,000 unit) capsule diclofenac sodium 1 % topical gel 4 g topical QID PRN Pain 05/02/21 05/30/25 insulin regular human 100 unit/mL See Rx Instructions .Route 05/02/21 05/30/25 injection solution (Novolin R .COMPLEX see pharmacy comments Regular U-100 Insulin) loratadine 10 mg tablet (Claritin) 10 mg PO DAILY 05/02/21 05/30/25 tamsulosin 0.4 mg capsule 0.8 mg PO QPM 10/18/21 05/30/25 fluticasone propionate 50 2 spray intranasal DAILY PRN 07/16/22 05/30/25 mcg/actuation nasal allergies spray,suspension (Flonase Allergy Relief) finasteride 5 mg tablet 5 mg PO DAILY 11/20/22 05/30/25 insulin glargine 100 unit/mL (3 35 unit SUBCUT QAM 11/20/22 05/30/25 mL) subcutaneous pen Held on 04/02/25. Instructions: hold if glucose <140 folic acid 1 mg tablet 1 mg PO DAILY 01/13/25 05/30/25 furosemide 80 mg tablet 80 mg PO QAM 01/13/25 05/30/25 isosorbide mononitrate 30 mg 30 mg PO QAM 01/13/25 05/30/25 tablet,extended release 24 hr nitroglycerin 0.4 mg sublingual 0.4 mg sublingual Q5M PRN heart 01/13/25 05/30/25 tablet issues pantoprazole 40 mg tablet,delayed 40 mg PO DAILY 01/13/25 05/30/25 release acetaminophen 500 mg tablet 500 mg PO Q6H PRN Abdominal Pain 05/30/25 05/30/25 (Tylenol Extra Strength) amoxicillin 500 mg-potassium 1 tab PO BID 05/30/25 05/30/25 clavulanate 125 mg tablet (Augmentin) carvedilol 3.125 mg tablet 3.125 mg PO DAILY 05/30/25 05/30/25 sevelamer carbonate 800 mg tablet 500 mg PO TID 05/30/25 05/30/25 Previous Rx's ?Medication ?Instructions ?Recorded hydrocodone 5 mg-acetaminophen 325 1 tab PO Q8H PRN pain #14 tabs 05/30/25 mg tablet nirmatrelvir 150 mg (6)-ritonavir See Rx Instructions PO .COMPLEX 05/30/25 100 mg (5) tablets in a dose pack #11 ea (Paxlovid) ondansetron 4 mg disintegrating 4 mg PO TID PRN nausea and 05/30/25 tablet vomiting #30 tabs Allergies Allergy/AdvReac Type Severity Reaction Status Date / Time allopurinol Allergy ALGY-Rash Verified 05/30/25 09:21 Iodinated Contrast Media Allergy ALGY-Hives Verified 05/30/25 09:21 levofloxacin (From Levaquin) Allergy ADR-Confusi Verified 05/30/25 09:21 on metformin Allergy ADR-Fatigue Verified 05/30/25 09:21 d Review of Systems Const: Denies: fever(s) or chills Card: Denies: chest pain Resp: Reports: dyspnea, non-productive cough, wheezing and chest congestion GI: Denies: abdominal pain : Denies: dysuria, urinary frequency or urinary urgency Musc: Denies: neck pain or back pain Skin/Breast: Denies: rash PFSH ED PFSH: Medical History Hyperuricemia History of COVID-19 (~12/2020) Anemia, unspecified Complex renal cyst BPH loc w urin obs/LUTS Diabetes HTN (hypertension) ASHD (arteriosclerotic heart disease) Dyslipidemia CKD (chronic kidney disease) CLL (chronic lymphocytic leukemia) Carotid stenosis, bilateral Surgical History H/O removal of testicle S/P appendectomy S/P CABG (coronary artery bypass graft) S/P PTCA (percutaneous transluminal coronary angioplasty) Status cardiac pacemaker Family History Mother , in her 70's Diabetes CAD (coronary artery disease) Father , at age 69 CAD (coronary artery disease) Hypertension Other Cancer Chronic kidney disease (CKD) Stroke Suicide Denies family history of Clotting disorder Dementia Hyperlipidemia Psychiatric illness Anesthesia complication Bleeding disorder Lung disease Social History Smoking and tobacco/nicotine status: former use of tobacco/nicotine Quit status (tobacco/nicotine): has quit using Year quit tobacco: 1989 Alcohol intake: never Substance/Drug Use: never Household members: spouse Marital status: Current occupational status: retired Physical Exam Const: COMMON NORMALS: no acute distress GENERAL APPEARANCE: cooperative and comfortable ORIENTATION/CONSCIOUSNESS: Yes awake, Yes oriented to person, Yes oriented to place and Yes oriented to time HENMT: COMMON NORMALS: normocephalic, atraumatic and hearing grossly normal bilaterally HEAD & SCALP: normocephalic and atraumatic Resp: COMMON NORMALS: normal respiratory effort, No retractions, No use of accessory muscles and clear to auscultation bilaterally AUSCULTATION: clear to auscultation bilaterally Cardio: COMMON NORMALS: regular rate, regular rhythm and No murmurs present (Cardio) RATE: regular rate RHYTHM: regular rhythm GI: COMMON NORMALS: Soft to palpation and No hepatosplenomegaly present AUSCULTATION: Yes normoactive bowel sounds PALPATION: Yes Soft to palpation, No Tenderness to palpation present (GI), No Guarding due to palpation present (GI) and Yes No hepatosplenomegaly present OTHER: Cholecystectomy tube in place Extremity: COMMON NORMALS: normal to inspection, capillary refill normal, no clubbing, cyanosis or edema, no calf tenderness and no pedal edema Neuro: SENSORIUM/ORIENTATION: Yes oriented to person, Yes oriented to place and Yes oriented to time Skin: COMMON NORMALS: no rashes or lesions noted GENERAL SKIN EXAM: no rashes or lesions noted Course Vital Signs: Vital signs: Vital Signs Temperature 97.8 F 05/31/25 07:21 Pulse Rate 71 05/31/25 07:21 Respiratory Rate 16 05/31/25 07:21 Blood Pressure 133/76 05/31/25 07:21 Pulse Oximetry 97 05/31/25 07:21 Oxygen Delivery Me thod Nasal Cannula 05/31/25 07:21 Oxygen Flow Rate 2 05/31/25 03:35 MDM - SOB/Dyspnea Medical Decision Making Medical decision making Social determinants: History of chronic lymphocytic leukemia family assists in cares patient needs assistance with ADLs and seeking medical care. I reviewed the patient's medical record. I reviewed the patient's current home meds. Alternate historians: at the bedside Differential diagnosis: COVID, pneumonia, hypoxia Lab Review: No leukocytosis chronic anemia and thrombocytopenia noted on labs. Creatinine 2.7 patient has known history of end-stage renal disease earlier today creatinine 4.3 patient had undergone partial dialysis treatment lactic acid 2.3 suspect some of this is due to his recent dialysis. And his acute COVID infection. T. bili at 1.6 slightly increased lipase 15 Imaging: No acute findings on chest x-rayNo acute infiltrates no increased vascular markings Assessment of risk Level of risk: High Hospitalization considerations: Admission for developing hypoxia and presence of recent COVID infection Reexamination: Stable no shortness of breath with oxygen supplementation Assessment and plan: Patient seen earlier today with COVID was discharged home and had partial dialysis became confused at dialysis and required increased oxygen oxygen requirement now is back down to 3 L/min will admit for support cares for COVID. Patient given DuoNebs and dexamethasone in the emergency room discussed with hospitalist orders written Lab Data 05/30/25 16:00 05/30/25 16:00 Labs/Radiology: Radiology Impressions Chest X-Ray 05/30/25 16:12 IMPRESSION: Stable chest as above. Laboratory Results WBC 4.53 10^3/uL (3.29-11.43) 05/30/25 16:00 RBC 3.20 10^6/uL (3.85-5.65) L 05/30/25 16:00 Hgb 10.00 g/dL (11.27-16.99) L 05/30/25 16:00 Hct 32.2 % (37-53) L 05/30/25 16:00 MCV 100.6 fl (82-101) 05/30/25 16:00 MCH 31.3 pg (27-33) 05/30/25 16:00 MCHC 31.1 g/dL (30-55) 05/30/25 16:00 RDW 16.4 % (12.1-15.1) H 05/30/25 16:00 Plt Count 83 10^3/cmm (157-399) L 05/30/25 16:00 MPV 9.2 fL (7.4-10.4) 05/30/25 16:00 Lymph % (Auto) Not Reportable 05/30/25 16:00 [place] % (Auto) Not Reportable 05/30/25 16:00 Lymph # (Auto) Not Reportable 05/30/25 16:00 [place] # (Auto) Not Reportable 05/30/25 16:00 Sodium 138 mmol/L (136-145) 05/30/25 16:00 Potassium 4.5 mmol/L (3.5-5.1) 05/30/25 16:00 Chloride 97 mmol/L (98-107) L 05/30/25 16:00 Carbon Dioxide 29 mmol/L (22-29) 05/30/25 16:00 Anion Gap 16.5 (5-19) 05/30/25 16:00 BUN 13 mg/dL (8-23) 05/30/25 16:00 Creatinine 2.7 mg/dL (0.7-1.2) H 05/30/25 16:00 GFR Calculation Not Reportable 05/30/25 16:00 Glucose 114 mg/dL (65-115) 05/30/25 16:00 POC Glucose 104 mg/dL (70-110) 05/30/25 17:47 Calculated Osmolality 287 mOsm/kg (285-295) 05/30/25 16:00 Lactic Acid 2.3 mmol/L (0.5-2.2) H 05/30/25 16:00 Calcium 8.9 mg/dL (8.5-10.5) 05/30/25 16:00 Magnesium 1.8 mg/dL (1.7-2.3) 05/30/25 16:00 Total Bilirubin 1.6 mg/dL (0.15-1.2) H 05/30/25 16:00 AST 9 U/L (0-40) 05/30/25 16:00 ALT 6 U/L (0-41) 05/30/25 16:00 Alkaline Phosphatase 106 U/L (40-130) 05/30/25 16:00 Creatine Kinase 45 U/L (39-308) 05/30/25 16:00 Total Protein 6.3 g/dL (6.6-8.7) L 05/30/25 16:00 Albumin 4.0 g/dL (3.5-5.2) 05/30/25 16:00 Globulin 2.3 g/dL (1.3-4.6) 05/30/25 16:00 All radiology interpretation(s) finalized by discharge EKG Data EKG 1: I personally reviewed and interpreted this EKG as follows: Interpretation: Paced rhythm rate of 89 QTc 496 no acute changes no changes meeting Sgarbossa's criteria no further analysis possible. No change from EKG 04/01/2025 Discharge Plan Discharge Patient Disposition: Admitted As Inpatient Admit Provider: Doug Vasquez Clinical Impression: COVID-19 in immunocompromised patient, Diabetes, CLL (chronic lymphocytic leukemia), Chronic lymphocytic leukemia of B-cell type not having achieved remission, ASHD (arteriosclerotic heart disease), Acute hypoxic respiratory failure Condition: Stable Coding Level of Care Code ED Press Cutter for Chg Tiffanie
--- NOTE | 2025-05-30 17:40 | PM.HP ---
Providers/Chief Complaint Admitting Physician: Dr. Altman Primary Care Provider: Paula Sandoval MD Chief Complaint: ams - lethargic History of Present Illness Valente Renae is a 80 year old male with PMHx of HTN, CAD s/p CABG, HLD, DM, CVA, ESRD, GERD, BPH, CLL. Nithya presented to the ED on 05/30/2025 directly from his dialysis clinic out of concern for altered mental status and hypoxia. On Friday (05/27) patient developed flu-like upper respiratory symptoms with a non-productive cough. Patient was seen earlier today in the ED for fever and right upper quadrant pain. He has a biliary drain, which was recently placed at [facility] after endoscopic removal of a gallstone. Biliary drain noted to have daily output of 200-[address] abdomen-pelvis negative for acute intra-abdominal findings. He was found to be COVID positive. Started on Paxlovid and discharged. The patient later attended his scheduled patient dialysis session. During dialysis, he developed progressive lethargy, confusion and hypoxia, requiring escalation of oxygen supplementation up to 6 L via nasal cannula. Due to progressive decline, his treatment was prematurely (by10-15 minutes) terminated and he was emergently transferred to the ED for further evaluation. On arrival to the ED, initially afebrile; however later developed temperature of 102.9 ?F. He was given steroids, breathing treatment and antipyretic. Subsequently admitted for further evaluation and treatment. ED Work-Up Reviewed Presenting VS: T 98.9 118/56 HR 85 RR 16 SpO2 95% on RA while in ED developed fever (T 102.9) EKG: paced rhythm Labs, 05/30/2025 1600 Infection/Inflammation LA 2.3 Hemogram WBC 4.53 RBC 3.20 PLT 83 HGB 10 HCT 32.2 Chemistry Na 138 K 4.5 Mg 1.8 Cl 97 Ca 8.9 CO2 29 AG 16.5 BUN 13 Cr 2.7 AST 9 ALT 6 ALP 106 T.Bili 1.6 Alb 4.0 Viral studies COVID + CXR: No acute chest abnormality identified Review of Systems General: Reports: 10 or more systems reviewed and unremarkable except in HPI and below Medications/Allergies Home Medications ?Medication ?Instructions ?Recorded ?Confirmed ?Last Taken ?Type docusate sodium 100 mg capsule 100 mg PO DAILY PRN Constipation 12/02/19 03/31/25 01/12/25 History (Colace) cholecalciferol (vitamin D3) 25 50 mcg PO DAILY 12/14/20 03/31/25 03/31/25 History mcg (1,000 unit) capsule diclofenac sodium 1 % topical gel 4 g topical QID PRN Pain 05/02/21 03/31/25 Unknown History insulin regular human 100 unit/mL See Rx Instructions .Route 05/02/21 03/31/25 03/31/25 History injection solution (Novolin R .COMPLEX see pharmacy comments Regular U-100 Insulin) loratadine 10 mg tablet (Claritin) 10 mg PO DAILY 05/02/21 03/31/25 03/31/25 History tamsulosin 0.4 mg capsule 0.8 mg PO QPM 10/18/21 03/31/25 03/30/25 History fluticasone propionate 50 2 spray intranasal DAILY PRN 07/16/22 03/31/25 Unknown History mcg/actuation nasal allergies spray,suspension (Flonase Allergy Relief) finasteride 5 mg tablet 5 mg PO DAILY 11/20/22 03/31/25 03/31/25 History insulin glargine 100 unit/mL (3 50 unit SUBCUT QAM 11/20/22 03/31/25 03/31/25 History mL) subcutaneous pen Held on 04/02/25. Instructions: hold if glucose <140 sevelamer carbonate 800 mg tablet 800 mg PO BID 05/12/24 03/31/25 03/31/25 History atorvastatin 80 mg tablet 80 mg PO QPM 01/13/25 03/31/25 01/12/25 18:00 History carvedilol 6.25 mg tablet See Rx Instructions .Route .COMPLEX 01/13/25 03/31/25 03/30/25 History folic acid 1 mg tablet 1 mg PO DAILY 01/13/25 03/31/25 03/31/25 History furosemide 80 mg tablet 80 mg PO QAM 01/13/25 03/31/25 03/30/25 History isosorbide mononitrate 30 mg 30 mg PO QAM 01/13/25 03/31/25 03/31/25 History tablet,extended release 24 hr nitroglycerin 0.4 mg sublingual 0.4 mg sublingual Q5M PRN heart 01/13/25 03/31/25 Unknown History tablet issues pantoprazole 40 mg tablet,delayed 40 mg PO DAILY 01/13/25 03/31/25 03/31/25 History release pirtobrutinib 50 mg tablet 50 mg PO DAILY 01/13/25 03/31/25 Unknown History doxycycline monohydrate 100 mg 100 mg PO BID #10 tabs 04/02/25 Unknown Rx tablet hydrocodone 5 mg-acetaminophen 325 1 tab PO Q8H PRN pain #14 tabs 05/30/25 Unknown Rx mg tablet nirmatrelvir 150 mg (6)-ritonavir See Rx Instructions PO .COMPLEX 05/30/25 Unknown Rx 100 mg (5) tablets in a dose pack #11 ea (Paxlovid) ondansetron 4 mg disintegrating 4 mg PO TID PRN nausea and 05/30/25 Unknown Rx tablet vomiting #30 tabs Allergies Allergy/AdvReac Type Severity Reaction Status Date / Time allopurinol Allergy ALGY-Rash Verified 05/30/25 09:21 Iodinated Contrast Media Allergy ALGY-Hives Verified 05/30/25 09:21 levofloxacin (From Levaquin) Allergy ADR-Confusi Verified 05/30/25 09:21 on metformin Allergy ADR-Fatigue Verified 05/30/25 09:21 d PFSH Acute PFSH: Medical History (Updated 05/30/25 @ 19:49 by Minda López NP) Hyperuricemia History of COVID-19 (~12/2020) Anemia, unspecified Complex renal cyst BPH loc w urin obs/LUTS Diabetes HTN (hypertension) ASHD (arteriosclerotic heart disease) Dyslipidemia CKD (chronic kidney disease) CLL (chronic lymphocytic leukemia) Carotid stenosis, bilateral Surgical History H/O removal of testicle S/P appendectomy S/P CABG (coronary artery bypass graft) S/P PTCA (percutaneous transluminal coronary angioplasty) Status cardiac pacemaker Family History Mother , in her 70's Diabetes CAD (coronary artery disease) Father , at age 69 CAD (coronary artery disease) Hypertension Other Cancer Chronic kidney disease (CKD) Stroke Suicide Denies family history of Clotting disorder Dementia Hyperlipidemia Psychiatric illness Anesthesia complication Bleeding disorder Lung disease Social History Smoking and tobacco/nicotine status: former use of tobacco/nicotine Quit status (tobacco/nicotine): has quit using Year quit tobacco: 1989 Alcohol intake: never Substance/Drug Use: never Household members: spouse Marital status: Current occupational status: retired Vitals/I&O/Wt Last Vital Signs Temp 102.9 F H 05/30/25 16:12 Pulse 92 05/30/25 16:12 Resp 24 H 05/30/25 16:12 BP 134/47 05/30/25 16:12 Pulse Ox 97 05/30/25 16:12 O2 Del Method Nasal Cannula 05/30/25 16:12 O2 Flow Rate 2 05/30/25 16:12 05/30/25 05/30/25 05/30/25 06:59 14:59 22:59 Intake Total 0 / 0 Balance 0 / 0 Weight last 48 hrs Weight 100.244 kg Physical Exam Narrative: Constitutional: NAD Neurorogic: Awake and alert. Oriented to self, place, and year. Somewhat somnolent and having hard time staying awake. No facial asymmetry, unilateral weakness or speech deficits. Head NC/AT Eyes PERRLA. EOMI. Sclera anicteric. ENT Normal external ears. Diminished hearing. Normal external nose. No epistaxis. MMM. Respiratory Diminished. No accessory muscle use. On room air. Heart / CV Regular. No murmur. Extremities No edema bilaterally Abdomen / GI Soft. Mild tenderness at RUQ. ND. +BS Biliary drain present. Genitourinary No calero catheter Musculoskeletal + generalized weakness Data 05/30/25 16:00 05/30/25 16:00 Other Labs: Labs, 05/30/2025 1600 Infection/Inflammation LA 2.3 Hemogram WBC 4.53 RBC 3.20 PLT 83 HGB 10 HCT 32.2 Chemistry Na 138 K 4.5 Mg 1.8 Cl 97 Ca 8.9 CO2 29 AG 16.5 BUN 13 Cr 2.7 AST 9 ALT 6 ALP 106 T.Bili 1.6 Alb 4.0 CXR: Radiologist's impression: XR chest 1V portable [id number] REASON FOR EXAM: dyspnea/cough Chest is unchanged compared to the examination of 9:37 a.m. 05/30/2025. No acute chest abnormality is identified. IMPRESSION: Stable chest as above. A&P Assessment and plan 1. Acute respiratory failure with hypoxia: 2. COVID-19 in immunocompromised patient: 3. End stage renal disease on dialysis: Plan: # Acute hypoxic respiratory failure # COVID 19 Covid-19+ on 05/30/25 Hypoxia requiring supplemental oxygen Patient immunocompromise - Dexamethasone 6 mg PO daily x10 days - Remdesivir - Labs: blood cultures collected in ED, results pending LDH, CRP, PCT - RT assess & treat - Continuous pulse oximetry - Oxygen therapy protocol - Flutter valve / incentive spirometer - Isolation precautions # ESRD on hemodialysis Outpatient dialysis clinic: [facility] dialysis days: MWF Vascular access: RUE AVG Last outpatient dialysis: 05/30/25 - Will need to consult nephrology for HD treatment if not discharged by friday - Diet: renal-diabetic dialysis diet w/ 1.5L fluid restriction # Microcytic Anemia Baseline HGB 10 g/dL range. Presenting HGB 10.0 g/dL. 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 Given complexity of patient's presentation, co-morbid conditions, and required intensity of treatment, a hospitalization exceeding two midnights is anticipated. Coding Level of Care Code 77016 Diagnoses Acute respiratory failure with hypoxia J96.01 COVID-19 in immunocompromised patient U07.1; D84.9 End stage renal disease on dialysis N18.6; Z99.2
[2025-05-30 18:10] LABS: Reflex Lactate Order REFLEX LACTIC ORDERD
[2025-05-30 20:06] LABS: Lactic Acid level (Lactate) 0.9 mmol/L (0.5-2.2)
--- OUTSIDE RECORDS SUMMARY | 2025-05-30 21:14 | XMS_ITS | Data Portability ---
Author Organization PETER Hayes [facility], [facility], [facility] Address [address] [facility] [address] [place] [address] Assessment Encounter Date Assessment Date Assessment LastModified [...] CoV 2 RNA, QL, nasopharynx 2022 023 [facility] ([facility]), [address] [facility], [place], [address], 13:21:58 SARS CoV 2 RNA (COVID-19), QL, research fellow-PCR, respiratory specimen 2022 023 [facility], [address] [place] [address], [facility] [address] [place], [address], 08:30:00 Referral None recorded. Procedures None recorded. Surgeries None recorded. Imaging None recorded. Medication Orders neomycin-po lymyxin-hyd rocort 3.5 mg-10,000 unit/mL-1 % ear drops,susp [address] [facility] 15, [address], [place], [address], 5 11:03:10 doxycycline hyclate 100 mg capsule 2024 025 [facility] 15, [address], [place], [address], 13:29:23 montelukast 10 mg tablet 2023 024 [facility] 15, [address], [place], [address], 4 13:02:33 ondansetron HCl 4 mg tablet 2022 [email or web address] [place] [address] 15, [address], [place], [address], 12:17:46 Paxlovid 300 mg (150 mg x 2)-100 mg tablets in a dose pack 2022 023 [email or web address] [address] [facility] 15, [address], [place], [address], 12:17:59 Patient TargetsNo targets recorded. Patient Instructions Encounter Date Encounter Id Patient Instructions Last Modified By Organization Details Last Modified Time 03/26/2024 [id number] Call or return for questions or concerns. Not available 03/26/2024 13:02:26 07/03/2024 [id number] Call or return for questions or concerns. If he is feeling worse he should go to the ER. Not available 07/03/2024 13:29:41 04/27/2025 [id number] Use drops and follow up for worsening [...] Disea se Contr ol and preve ntion ([facility]) pre depar ture and arriv al [...] COVID -19 page locat ed at https ://Lakoo.cdc .gov/ coron aviru s/ 9-nco v/vac cines /inde x.htm l for infor matio n on COVID -19 vacci elly. Not Available [employer] [facility] [address] [place], [address], 03/19/2023 08:30:00 03/17/20 23 03/17/2023 SARS CoV 2 RNA, QL, nasop haryn x COVID negati ve Not Available [facility] ([facility]) [address] [place], [address], 03/17/2023 12:49:58 Result Notes None recorded. Problems Name Problem SNOMED Code Status Onset Date Resolution Date Notes Provider Name and Address Organization Details Recorded Time Open heart surgery 1372733 Active 2020 Open heart 4-bypass [address] Jean; 05/10/2021 2:25PM by Bernadette Bonilla RN, Office Visit; Promoted; acuity set as *; Not Available [facility] 3 03:16:24 Cardiac pacemaker in situ 462142207 Active 2020 [facility] CARDI[employer] PACEMAKER; Recorded 05/10/2021 2:25PM by Bernadette Bonilla RN, Office Visit; Promoted; acuity set as *; Not Available [facility] 3 03:16:27 Leukemia 06656171 Active 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 Mann; 05/10/2021 2:25PM by Bernadette Bonilla RN, Office Visit; Promoted; acuity set as *; Not Available [facility] 3 03:16:30 Benign essential hypertens ion 6454761 Active 2020 Hypertensi on; 05/10/2021 2:25PM by Bernadette Bonilla RN, Office Visit; Promoted; acuity set as *; Not Available [facility] 3 03:16:35 Type 2 diabetes mellitus without complicat ion 768320440 Active 2020 Non-Insuli n Dependent Diabetes Mellitus; pt test QID; 05/10/2021 2:25PM by Bernadette Bonilla RN, Office Visit; Promoted; acuity set as *; Not Available [facility] 3 03:16:37 Problem Notes None recorded. Medical Equipment None Reported. Allergies Allergen ID Allergen Name Allergen Category Reaction Reaction Severity Criticality Documentation Date Start Date Code Code System Note Provider Name and Address Organization Details Recorded Time 46094 iodine medicatio n Not available Not available Not available 01/18/2023 5933 RxNorm Comme nt: Recor ded 05/10 2:25P M by Ryan Bonilla RN, Offic e Visit ; Promo emmanuel; Le gagnon ce: *; Reaso n: Drug aller gy; ; Not Available [facility] 3 02:24:23 92979 Uloric medicatio n hives Not available Not available 01/18/2023 51661 6 RxNorm React ion: Hives ; Comme nt: Recor ded 05/10 2:25P M by Ryan Bonilla RN, Offic e Visit ; Promo vivian gagnon ce: *; Reaso n: Drug aller gy; ; Not Available [facility] 3 02:24:23 85753 allopurin ol medicatio n abdominal pain Not available Not available 01/18/2023 519 RxNorm React ion: Abdom inal pain, Hives ; Comme nt: Recor ded 05/10 2:25P M by Ryan Bonilla RN, Offic e Visit ; Promo emmanuel; Signi kalin ce: *; Reaso n: Drug aller gy; ; Not Available [facility] 3 02:24:23 28766 Flomax medicatio n other Not available Not available 01/18/2023 58737 3 RxNorm React ion: Blood disor luz marina; Comme nt: Recor ded 05/10 2:25P M by Ryan Bonilla RN, Offic e Visit ; Promo emmanuel; Signi ficloren ce: *; Reaso n: Drug aller gy; ; Not Available [facility] 3 02:24:23 21646 Levaquin medicatio n hallucina tions Not available Not available 01/18/2023 07073 2 RxNorm React ion: demen tia, confu garfield, hallu cinat ions, agita tion; Comme nt: Recor ded 05/10 2:25P M by Ryan Bonilla RN, Offic e Visit ; Promo emmanuel; Signi kalin ce: *; Reaso n: Drug aller gy; ; Not Available [facility] 3 02:24:23 53583 Seroquel medicatio n hallucina tions Not available Not available 01/18/2023 04163 RxNorm React ion: hallu cinat ions; Comme nt: Recor ded 05/10 2:25P M by Ryan Bonilla RN, Offic e Visit ; Promo emmanuel; Signi kalin ce: *; Reaso n: Drug aller gy; ; Not Available [facility] 3 02:24:23 Medications Name Sig [...] Mann; 0; Recorded 05/10/20 21 2:25PM by Benradette Bonilla, RN, Office Visit; Not Available Not Available Not Available carvedilo l active Not Available Not Available Not Available Plavix QD 03/26 completed 0; Recorded 05/10/20 21 2:25PM by Bernadette Bonilla, RN, Office Visit; Not Available Not Available Not Available Nitrostat Q5 minutes x 3 prn 2019 active VO JR/[facility] ; Recorded 01/20/20 8:38AM by Janel [...] Updated DateTime 5 180.34 cm 32.1 kg/m2 912671. 05 g 98.4 [degF] 77 /min 93 % 140/62 mm[Hg] Sherin Jama [facility] L[facility]LG[facility]CGabo 5 12:50:20 Date Recorded Body height Body mass index (BMI) Body weight Oxygen saturation Heart rate Respiratory rate Body temperature Provider Name and Address Organization Details Last Updated DateTime 3 177.8 cm 35.7 kg/m2 374932. 5 g 98 % 94 /min 20 /min 98.2 [degF] SAILAJA ROSALES [facility] [address] [place], [address] , [facility], LGaboLMaureen 3 12:51:23 Date Recorded Body weight Body mass index (BMI) Body height Body temperature Oxygen saturation Heart rate Systolic And Diastolic Provider Name and Address Organization Details Last Updated DateTime 4 895538. 13 g 34.2 kg/m2 180.34 cm 98 [degF] 95 % 81 /min 132/58 mm[Hg] Sherin Jama [facility] 4 12:22:13 Date Recorded Body height Body mass index (BMI) Body weight Body temperature Oxygen saturation Heart rate Systolic And Diastolic Provider Name and Address Organization Details Last Updated DateTime 5 180.34 cm 30.6 kg/m2 49337.8 3 g 98.1 [degF] 96 % 90 /min 122/56 mm[Hg] Leila Stacksalma [facility] 5 10:49:54 Social History None recorded. Functional Status None recorded. Mental Status None recorded. Family History Nothing Reported. Medical History No medical history recorded. Immunizations Vaccine Type Date Status Note Provider Nam e and Address Organization Details Recorded Time Td (adult), 2 Lf tetanus toxoid, preservative free, adsorbed 7 completed Not Available [facility] 01/18/2023 02:50:56 Influenza, split virus, trivalent, preservative 1 completed Not Available [facility] 01/18/2023 02:50:56 pneumococcal, unspecified formulation 1 completed Not Available [facility] 01/18/2023 02:50:56 zoster, unspecified formulation 1 completed Not Available [facility] 01/18/2023 02:50:56 Influenza, split virus, trivalent, preservative 1 completed Not Available [facility] 01/18/2023 02:50:56 pneumococcal polysaccharide PPV23 1 completed Not Available [facility] 01/18/2023 02:50:56 COVID-19, mRNA, LNP-S, PF, 30 mcg/0.3 mL dose 1 completed Not Available [facility] 01/18/2023 02:50:57 COVID-19, mRNA, LNP-S, PF, 30 mcg/0.3 mL dose completed Not Available [facility] 01/18/2023 02:50:57 Past Encounters Encounter ID Performer Location Encounter Start Date Encounter Closed Date Diagnosis/Indication Diagnosis SNOMED-CT Code Diagnosis ICD10 Code Diagnosis IMO Codes Diagnosis Note [id number] SAILAJA ROSALES [employer] [facility] ([facility]) [address] [place] [address] 5 03/17/2023 12:05:05 03/18/2023 14:42:14 Cough 20207676 R05.9 COVID-19 918650627 U07.1 Nausea 661530682 R11.0 [id number] TONY CAMPOS [facility] ([facility]) [address] [place] [address] 5 03/26/2024 11:40:55 03/26/2024 13:06:31 Seasonal allergic rhinitis 264142138 J30.2 [id number] TONY CAMPOS [facility] ([facility]) [address] [place], [place] [address] 07/03/2024 12:08:59 07/03/2024 13:37:45 Acute bacterial bronchitis 579320033 J20.9 End stage renal failure on dialysis 173955668 N18.[address] [place] out of [place] claire [id number] SHERLYN CORREA APRN [facility] ([facility]) [address] [place] [address] 5 04/27/2025 10:38:31 04/27/2025 12:26:23 Acute otitis externa of left ear 2190938113 592351 H60.502 220236126 Health Concerns Section Related Observation LastModified by Organization Detai ls LastModified Time None Recorded Concern Status LastModified by Organization Details LastModified Time None Recorded Advance Directives Directive None Recorded Payers Insurance Date Sequence Insurance Name Policy Number Policy Cedillo Covered Member ID Cedillo Member ID Guarantor Name 04/27/2025 2 [employer] (MEDICARE SUPPLEMENT) Valente Renae [id number] Valente Renae 04/29/2025 1 [place] Valente Renae [id number] Valente Renae 05/02/2025 [place] - [facility] (MEDICARE) Valente Renae [id number] Valente Renae 05/02/2025 [place] - [facility] (MEDICARE) Valente Renae [id number] Valente Renae Notes Date Note Type Note [...] as noted in the HPI SAILAJA ROSALES, [facility] [address] [place], [address], [facility] 03/17/2023 13:27:21 03/26/2024 text/html CoughReported by PatientHPIFor quality, patient reportsproductive. For severity, patient reportsmoderate. For duration, patient reportsconstant. For onset/timing, patient reportssudden. For context, patient reportsnon-smoker. For associated symptoms, patient reportsno fever,no chills, andno throat clearing.ROS as noted in the HPI walk in ptPt has had a terrible cough for a week and a half. TONY CAMPOS, [facility] [address] [place], [address], [facility] 03/26/2024 13:04:04 07/03/2024 text/html CoughReported by Patient walk in ptPt has a cough and weakness for a week and has 2 dialysis visits. TONY CAMPOS, [employer] [address] [place], [address], [facility], LGaboLRick. 07/03/2024 13:30:07 04/27/2025 text/html Walk inEar ache. Left side. No drainage, no fever. No sore throat. Started x2 weeks ago after pneumonia. Not a constant pain. Has been wearing aids again SHERLYN CORREA, ROBY [address] [place], [address], [facility], LGaboLRick. 04/27/2025 12:15:16
--- OUTSIDE RECORDS SUMMARY | 2025-05-30 21:16 | XMS_ITS | Patient Health Record ---
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) Active confirmed Problem Anemia in chronic kidney disease (264712573) 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) Active confirmed Problem Type II diabetes mellitus without complication (167364149) Type 2 diabetes mellitus without complications (E11.9) Active confirmed Problem Chronic kidney disease due to hypertension (771950898395023) Hypertensive chronic kidney disease with stage 1 through stage 4 chronic kidney disease, or unspecified chronic kidney disease (I12.9) Active confirmed Problem Chronic kidney disease stage 4 (186252228) Chronic kidney disease, stage 4 (severe) (N18.4) Active confirmed Problem Secondary hyperparathyroidism of renal origin (09149596) Secondary hyperparathyroidism of renal origin (N25.81) Active confirmed Problem Dependence on renal dialysis (723737243) Dependence on renal dialysis (Z99.2) Active confirmed Problem Essential hypertension (82846372) HTN (hypertension), benign (I10) Active confirmed Problem Chronic kidney disease stage 4 (224252830) CKD (chronic kidney disease), stage IV (N18.4) Active confirmed Problem Hyperparathyroidism (36198024) Hyperparathyroidism (E21.3) Active confirmed Problem Benign hypertension (38352783) Hypertension, benign (I10) Active confirmed Problem Chronic lymphoid leukemia, disease (17939304) CLL (chronic lymphocytic leukemia) (C91.10) Active confirmed Problem Chronic kidney disease stage 4 (016789839) Chronic kidney disease, stage IV (severe) (N18.4) Active confirmed Problem Benign prostatic hypertrophy with outflow obstruction (934571409) BPH NOS w ur obs/LUTS (N40.1) Active confirmed Problem Chronic kidney disease stage 3A (disorder) (157488325) Chronic kidney disease, stage 3a (N18.31) Active confirmed Problem End stage renal disease (73981216) End-stage renal disease (ESRD) (N18.6) Active confirmed Encounters Encounter Location Date Provider Diagnosis [facility] [address] [place] [address] Dr [address] [place] [address] 07/19/2024 Tito Leone [facility] [address] [place] [address] 07/16/2024 Tito Leone Plan Of Treatment Pending Test Test Name Order Date Basic Metabolic Panel (BMP) 48515 2023 Hemoglobin 75921 09/30/2023 Magnesium (B) 29607 09/30/2023 Phosphorus (B) 06878 09/30/2023 Protein (U) Random 24992 09/30/2023 Uric Acid (B) 91805 09/30/2023 Creatinine (U) 09334 09/30/2023 UA Reflex Micro, Reflex Cult 98382, 8101 5, 84352 09/30/2023 PTH Intact 30575 09/30/2023 Basic Metabolic Panel (BMP) 30866 2020 Phosphorus (B) 39927 12/07/2020 PTH Intact 16647 12/07/2020 Basic Metabolic Panel (BMP) 34379 2022 Ferritin 70143 06/18/2023 Hemoglobin 66136 06/18/2023 Iron Binding Capacity Total 18103 2022 Iron Level 32991 06/18/2023 Magnesium (B) 55947 06/18/2023 Phosphorus (B) 16980 06/18/2023 Protein (U) Random 02447 06/18/2023 Uric Acid (B) 43144 06/18/2023 Creatinine (U) 72585 06/18/2023 UA Reflex Micro, Reflex Cult 03499, 8101 5, 02266 06/18/2023 PTH Intact 32326 06/18/2023 Albumin 19577 02/03/2024 Basic Metabolic Panel (BMP) 02797 2023 Ferritin 69119 02/03/2024 Hemoglobin 39482 02/03/2024 Iron Binding Capacity Total 90053 2023 Iron Level 07397 02/03/2024 Magnesium (B) 14539 02/03/2024 Phosphorus (B) 84544 02/03/2024 Protein (U) Random 84112 02/03/2024 Uric Acid (B) 49175 02/03/2024 Vitamin D Total (B) 65461 02/03/2024 Creatinine (U) 15249 02/03/2024 UA Reflex Micro, Reflex Cult 30181, 8101 5, 87535 02/03/2024 PTH Intact 19310 02/03/2024 % Iron Saturation (Fe & TIBC)--62837,835 50 02/03/2024 Future Test Test Name Order Date Basic Metabolic Panel (BMP) 46710 2023 CBC w\ Auto Diff 27340 06/17/2024 Ferritin 64858 06/17/2024 Hemoglobin 59863 06/17/2024 Magnesium (B) 13482 06/17/2024 Phosphorus (B) 18379 06/17/2024 Protein (U) Random 06430 06/17/2024 Uric Acid (B) 88141 06/17/2024 Microalbumin (U) Random 95213 06/17/2024 Creatinine (U) 93808 06/17/2024 UA Reflex Micro, Reflex Cult 45291, 8101 5, 13576 06/17/2024 PTH Intact 33462 06/17/2024 % Iron Saturation (Fe & TIBC)--20182,835 50 06/17/2024 Insurance Providers Payer Name Payer Address Payer Phone Subscriber Number Group Number Insured Name Patient Relationship to Insured Coverage Start Date Coverage End Date [place] [address] [place] [phone] [id number] Valente Renae Self - patient is the insured 9 [employer] [address] [place] [phone] [id number] Valente Renae Self - patient is the [...]
--- OUTSIDE RECORDS SUMMARY | 2025-05-30 21:17 | XMS_ITS | Clinical Summary ---
Author Organization [facility] Address [address] [address] Phone Care Team Providers Care Software Development Manager Name Role Phone Paula Sandoval MD Primary Care Provider + [phone] Allergies Active Allergy Reactions Criticality Noted Date [...] Constipation. Active fluticasone propionate (FLONASE) 50 mcg/spray Drury, Suspension nasal inhaler Administer 1 Drury in each nostril 2 times daily. Active [...] lobe of lung 03/29/2024 Lesion of right quileute kidney 03/29/2024 Acute hypoxic respiratory failure 03/29/2024 Anemia 03/29/2024 Thrombocytopenia 03/29/2024 Impaired mobility 02/02/2021 CLL (chronic lymphocytic leukemia) 02/02/2021 History of COVID-19 02/02/2021 Generalized muscle weakness 01/30/2021 Acute cystitis without hematuria 01/30/2021 Stage 4 chronic kidney disease 11/05/2019 Chronic lymphocytic leukemia 11/05/2019 Encounters Date Type Department Care Team Description 05/12/2025 Results Follow-Up [place] [address] [place] [address] Lyndsey Dorsey NP LIPID PANEL 05/10/2025 External Device Data STL ABSTRACTION Provider, Abstract 05/09/2025 2:15 PM EXPORT SALES MANAGER Procedure visit [facility] [address] [place] [phone] Sotero Alejandro MD Sick sinus syndrome (CMS/HCC) (Primary Dx); Dilated cardiomyopathy (CMS/HCC); Chronic combined systolic and diastolic CHF (congestive heart failure) (CMS/HCC); Ischemic dilated cardiomyopathy (CMS/HCC); Automatic implantable cardioverter-defibril lator in situ 05/09/2025 1:00 PM EXPORT SALES MANAGER Office Visit [facility] [address] [place] [phone] Lyndsey Dorsey NP Mixed hyperlipidemia (Primary Dx); Chronic combined systolic and diastolic CHF (congestive heart failure) ([facility]/HCC); Sick sinus syndrome ([facility]); Automatic implantable cardioverter-defibril lator in situ; ASHD (arteriosclerotic heart disease); Hx of CABG; ESRD (end stage renal disease) ([facility]) 04/28/2025 Orders Only [facility] [place] [address] [place] [phone] Tom Becerril NP CLL (chronic lymphocytic leukemia) ([facility]) (Primary Dx); Thrombocytopenia 04/27/2025 Orders Only [facility] and Hematology [place] [address] [place] [phone] Tom Becerril NP CLL (chronic lymphocytic leukemia) ([facility]) (Primary Dx) 04/26/2025 External Device Data STL ABSTRACTION Provider, Abstract 04/22/2025 11:30 AM CDT Office Visit [facility] Vascular Surgery [place] [address] [phone] Klarissa Flowers MD ESRD (end stage renal disease) ([facility] (Primary Dx); S/P arteriovenous (AV) graft placement 03/22/2025 External Device Data STL ABSTRACTION Provider, Abstract 03/22/2025 Orders Only [facility] [place] [address] [place] [phone] Umm Dotson DO 03/21/2025 1:00 PM CDT Office Visit [facility] [place] [address] [place] [phone] Umm Dotson DO CLL (chronic lymphocytic leukemia) ([facility]/HCC) (Primary Dx); Thrombocytopenia 03/21/2025 12:05 PM CDT - 03/21/2025 11:59 PM CDT Hospital Encounter [facility] [address] [place] [address] Umm Dotson DO Discharge Disposition: Home or Self Care 03/21/2025 Telephone [facility] V[facility] Surgery [place] [phone] Klarissa Flowers MD Question 03/17/2025 Orders Only [facility] [place] [address] [place] [address] Umm Dotson DO CLL (chronic lymphocytic leukemia) (CMS/HCC) (Primary Dx) 03/16/2025 Orders Only [facility] [place] [address] [facility] [address] [place] [address] Umm Dotson DO CLL (chronic lymphocytic leukemia) (CMS/HCC) (Primary Dx) 03/15/2025 Telephone [facility] [place] [address] [phone] Klarissa Flowers MD Appointment Notification; Question 03/14/2025 Telephone [facility]ascular [place] [address] [facility] [phone] Klarissa Flowers MD Question 03/08/2025 External Device Data STL ABSTRACTION Provider, Abstract from Last 3 Months Immunizations Immunization Administration Dates Next Due (ADACEL/BOOSTRIX)(10 YR UP) TDAP VACCINE, 0.5ML, IM 12/20/2020 (HEPLISAV-B)(18 YR UP) HEPAT ITIS B VACCINE CPG-ADJUVANTED (HEPB-CPG) 2-4 DOSE, IM 04/29/2024 (PFIZER)(12 YR UP) COVID-19 VACCINE - EMERGENCY USE AUTHORIZATION, MRNA, [id number](PF) 30 MCG/0.3 ML IM SUSP 08/18/2020,07/24/2020,06/23/2020 (PNEUMOVAX [...] Comments Blood Pressure 110/64 05/09/2025 12:52 PM EXPORT SALES MANAGER Pulse 78 05/09/2025 12:52 PM EXPORT SALES MANAGER Temperature 36.4 C (97.5 F) 03/21/2025 1:00 PM CDT Respiratory Rate 17 02/07/2025 2:50 PM CDT Oxygen Saturation 98% 05/09/2025 12: 52 PM EXPORT SALES MANAGER Inhaled Oxygen Concentration - - Weight 100.3 kg (221 lb 3.2 oz) 12:52 PM EXPORT SALES MANAGER Height 180.3 cm (5' 11 ) 05/09/2025 12: 52 PM EXPORT SALES MANAGER Body Mass Index 30.85 05/09/2025 12:52 PM EXPORT SALES MANAGER Plan of Treatment Upcoming Encounters Date Type Department Care Team (Late st Contact Info) Description 06/06/2025 3:30 PM EXPORT SALES MANAGER Video Visit [facility] [place] [address] [facility] [address] [place] [phone] Mckenzie Merino, [facility] [address] [place] [phone] 06/08/2025 11:30 AM EXPORT SALES MANAGER Hospital Encounter [facility] Interventional Radiology [address] [place] [phone] Klarissa Flowers MD [address] [facility] [address] [place] [phone] Greg Razo MD [address] [place] [address] 07/18/2025 11:00 AM EXPORT SALES MANAGER Office Visit [facility] Card[facility] [address] [place] [address] Sotero Alejandro MD [address] [place] [phone] Eliana Davis NP [address] [place] [phone] 08/03/2025 11:30 AM EXPORT SALES MANAGER Appointment [facility] [address] [place] [address] 08/10/2025 9:00 AM EXPORT SALES MANAGER Office Visit [facility] [place] [address] [place] [address] Umm Dotson DO [phone] 10/20/2025 8:00 AM CDT Procedure visit [facility] [address] [place] [address] Sotero Alejandro MD [address] [facility] [address] [place] [address] 01/09/2026 1:00 PM CDT Office Visit [facility] [address] [place] [address] Warren Sweeney MD [address] [facility] [address] [place] [address] Lyndsey Dorsey NP [address] [place] [address] Health Maintenance Due Date Last Done Comments DIABETES ANNUAL FOOT EXAM 1962 RSV VACCINE (60+ or ) (1 - 1-dose 75+ series) 2019 DIABETES ANNUAL RETINAL EXAM 12/08/2024, 12/09/2023, 10/16/2016, Additional history exists INFLUENZA VACCINE (#1) 2025 , 03/12/2021, 05/23/2014, Additional history exists COVID-19 Vaccine (4 - 2024-2 6 season) 2025 08/18/2020, 07/24/2020, 06/23/2020 DIABETES MICROALBUMIN ANNUAL SCREEN 03/29/2025 03/29/2024 DIABETES HBA1C Q 6 MONTHS 11/15/20252024, 04/08/2024, 03/29/2024, Additional history exists LDL CHOLESTEROL [...] years Discontinued Medical Devices Implanted Type Area Parking Analyst Device Identifier Shelf Expiration Date Model / Serial / Lot Cath Dialysis Glidepath 14.5fr 23cm Std [id number] - [id number] Implanted:Qty : 1 on 04/01/2024 by Kim Flowers MD at [facility] Catheter Right: Chest BARD NUVIA VASC [id number] 09/20/2025 [id number] / / [id number] Clip Ligating Horizon [place] [id number] [place] [facility] [id number] Implanted:Qty : 1 on 11/29/2024 by Klarissa Flowers MD at [facility] Clip Right: Arm [employer]LE[employer] INC [id number] 08/06/2029 [id number] / / [id number] Clip Ligating Horizon Med [place] 145875 [place] [facility] [place] [id number] Implanted:Qty : 1 on 11/29/2024 by Klarissa Flowers MD at [facility] Clip Right: Arm TELEFLEX- WECK CLOSURE SYS [id number] 05/30/2029 [id number] / / [id number] Supervisor Boarding-D [place] Xt Hf Quad Mri [id number] Df4 Surescan [id number] - [id number] Implanted:Qty : 1 on 01/19/2025 by Sotero Alejandro MD at [facility] Defibrillator N/A: Chest Wall MEDTRONIC- CARD RHYTHM MGMT [id number] 04/19/2026 [id number] / [id number] / Graft Vasc Propaten 4-8pja49th [id number] - [id number] Implanted:Qty : 1 on 11/29/2024 by Klarissa Flowers MD at [facility] Graft Right: Arm [employer] [id number] 07/19/2027 [id number] / [id number] / Agent Hemostat Surgicel 2x3in 1952s - [id number] Implanted:Qty : 1 on 11/29/2024 by Klarissa Flowers MD at [facility] Hemostatic Right: Arm J&J- [employer] INC [id number] 09/20/2028 1953S / / [id number] Lead Sprint Quattro Secure 62cm [id number] - Csc - [id number] Implanted:Qty : 1 on 01/19/2025 by Sotero Alejandro MD at [facility] Lead N/A: Chest Wall MEDTRONIC- CRM - BULK BUY [id number] 10/20/2026 [id number] / [id number] V / Lead Attain 88cm St Vent Quad 4798-88 - [id number] Implanted:Qty : 1 on 01/19/2025 by Sotero Alejandro MD at [facility] Lead N/A: Chest Wall MEDTRONIC- CARD RHYTHM MGMT [id number] 08/25/2026 4798-88 / [id number] V / Pacemaker Procedures Procedure Name Priority Date/Time Associated Diagnosis Comments LIPID PANEL Routine 05/11/2025 9:52 AM EXPORT SALES MANAGER Chronic combined systolic and diastolic CHF (congestive heart failure) (CMS/HCC) Sick sinus syndrome (CMS/HCC) Automatic implantable cardioverter-defibril lator in situ ASHD (arteriosclerotic heart disease) Hx of CABG ESRD (end stage renal disease) (CMS/HCC) Mixed hyperlipidemia CO PROGRAM EVAL, IMPLANT DEVICE CARDVERT/DEFIB,MULTI- LEAD W/IN GLOBAL Routine 05/09/2025 2:51 PM EXPORT SALES MANAGER Sick sinus syndrome (CMS/HCC) Dilated cardiomyopathy (CMS/HCC) Chronic combined systolic and diastolic CHF (congestive heart failure) (CMS/HCC) Ischemic dilated cardiomyopathy (CMS/HCC) Automatic implantable cardioverter-defibril lator in situ LACTATE DEHYDROGENASE Routine 04/29/2025 10:25 AM EXPORT SALES MANAGER CLL (chronic lymphocytic leukemia) (CMS/HCC) Thrombocytopenia COMPREHENSIVE METABOLIC PANEL Routine 04/29/2025 10:25 AM EXPORT SALES MANAGER CLL (chronic lymphocytic leukemia) (CMS/HCC) Thrombocytopenia CBC WITH DIFFERENTIAL Routine 04/29/2025 10:25 AM EXPORT SALES MANAGER CLL (chronic lymphocytic leukemia) (CMS/HCC) Thrombocytopenia COMPREHENSIVE [...] AM CDT CLL (chronic lymphocytic leukemia) (CMS/HCC) MICROALBUMIN/CREATINI NE RATIO, RANDOM UR Routine 03/29/2024 6:06 PM CDT HEMOGLOBIN A1C Routine 03/29/2024 1:24 AM CDT from Last 3 Months or Most Recently Relevant to Health Maintenance Results * LIPID PANEL (05/11/2025 9:52 AM EXPORT SALES MANAGER) CHOLESTEROL 123 <200 mg/dL [facility] HDL 52 > OR = 40 mg/dL [facility] TRIGLYCERIDE 49 <150 mg/dL [facility] LDL CALCULATED 57 mg/dL (calc) [facility] Comment: Reference range: <100 Desirable range <100 mg/dL for primary prevention; <70 mg/dL for patients with CHD or diabetic patients with > or = 2 CHD risk factors. LDL-C is now calculated using the Rakan-Ayala calculation, which is a validated novel method providing better accuracy than the Friedewald equation in the estimation of LDL-C. Rakan SS et al. ANGELA. 2013;310(19): 5198-3566 (http://education.Ludei.Tercica/faq/UTM539) CHOL/HDL RATIO 2.4 <5.0 (calc) [facility] NON-HDL CHOLESTEROL 71 <130 mg/dL (calc) [facility] Comment: For patients with diabetes plus 1 major ASCVD risk factor, treating to a non-HDL-C goal of <100 mg/dL (LDL-C of <70 mg/dL) is considered a therapeutic option. Test Performed at: [email or web address] [address] [address] Tawanda Roca MD Blood 05/11/2025 9:52 AM EXPORT SALES MANAGER 05/11/2025 9:53 AM EXPORT SALES MANAGER Lyndsey Weatherspat Dorsey NP CHEMISTRY ORDERABLES Fi nal Result [facility] [phone] [facility] [address] [phone] * CO PROGRAM EVAL, IMPLANT DEVICE CARDVERT/DEFIB,MULTI-LEAD W/IN GLOBAL (05/09/2025 2:51 PM EXPORT SALES MANAGER) 05/09/2025 2:51 PM EXPORT SALES MANAGER Narrative INTERFACE SYSTEM - 05/09/2025 5:18 PM EXPORT SALES MANAGER Office Device Check Report Date of Procedure: [...] 05-26-2025. . See attached report for details. us Sotero Alejandro MD CARDIAC SERVICES ORDERABLES Edited Result - Final INTERFACE SYSTEM Refer to clinic/hospital department * (ABNORMAL) CBC WITH DIFFERENTIAL (04/29/2025 10:25 AM EXPORT SALES MANAGER) Only the most recent of3 resultswithin the [...] present. Macrocytosis 1 + Test Performed at: [facility] [address] [address] Tawanda Roca MD Blood 04/29/2025 10:2 5 AM EXPORT SALES MANAGER 04/29/2025 10:25 AM EXPORT SALES MANAGER Tom Becerril NP HEMATOLOGY ORDERABLES Final Result [facility] [phone] [facility] [address] * LACTATE DEHYDROGENASE (04/29/2025 10:25 AM EXPORT SALES MANAGER) Only the most recent of3 resultswithin the time period is included. LD (LACTATE DEHYDROGENASE) 160 120 - 250 U/L [facility] Comment: Test Performed at: [facility] [address] [address] Tawanda Roca MD Blood 04/29/2025 10:2 5 AM EXPORT SALES MANAGER 04/29/2025 10:25 AM EXPORT SALES MANAGER us Tom Becerril MOUNTAIN GUIDE CHEMISTRY ORDERABLES Final R esult [facility] [phone] [facility] [address] [phone] * (ABNORMAL) COMPREHENSIVE METABOLIC PANEL (04/29/2025 10:25 AM EXPORT SALES MANAGER) Only the most recent of3 resultswithin the time period is included. GLUCOSE 204(H) 65 - 99 mg/dL [facility] Comment: Fasting reference interval For someone without known diabetes, a glucose value >125 mg/dL indicates that they may have diabetes and this should be confirmed with a follow-up test. BUN 25 7 - 25 mg/dL [facility] CREATININE 3.03(H) 0.70 - 1.22 mg/dL [...] enexa ALT 5(L) 9 - 46 U/L [facility] Comment: Test Performed at: [facility] [place] [address] Tawanda Roca MD Blood 04/29/2025 10:2 5 AM EXPORT SALES MANAGER 04/29/2025 10:25 AM EXPORT SALES MANAGER Tom Becerril M[place] GUIDE CHEMISTRY ORDERABLES Final R esult Performing Organization Address [facility] Co de Phone Number [facility] [phone] [facility] [address] * URIC ACID (03/21/2025 12:16 PM CDT) Only the most recent of2 resultswithin the time period is included. URIC ACID 4.5 4.0 - 8.0 mg/dL [facility] Comment: Therapeutic target for gout patients: <6.0 mg/dL Test Performed at: [facility] [address] [place] [address] Tawanda Roca MD Blood 03/21/2025 12:1 6 PM CDT 03/21/2025 10:25 PM CDT Umm Dotson DO CHEMISTRY ORDERABLES Fi nal Result Performing Organization Address [facility] Co de Phone Number [facility] [phone] [facility] [address] [place] [phone] * (ABNORMAL) MICROALBUMIN/CREATININE RATIO, RANDOM UR (03/29/2024 [...] PM CDT Performing Organization Information: Site ID: [email or web address] Name: [email or web address] Address: [address] [address] Director: Tawanda Roca MD us Jillian Monge MD URINE ORDERABLES Final Result [facility] * (ABNORMAL) HEMOGLOBIN A1C (03/29/2024 1:24 AM CDT) HEMOGLOBIN A1C 7.1(H) <=5.6 % 03/29/2024 12:00 PM CDT [facility] EST. AVG GLUCOSE, A1C 157 mg/dL 03/29/2024 12:00 PM CDT [facility] Blood Venipuncture / Unknown 03/29/2024 1:24 AM CDT 03/29/2024 1:51 AM CDT Narrative [facility] - 03/29/2024 12:00 PM CDT HGB A1C INTERPRETATION NORMAL: <5.7% PRE-DIABETES: 5.7 - 6.4% DIABETES: 6.5% OR GREATER us Jaciel Yuan MD CHEMISTRY ORDERABLES Final R esult [facility] CLIA # [id number] [address] [place] [address] [place] [address] from Last 3 Months or Most Recently Relevant to Health Maintenance Insurance MEDICARE PART A AND B [employer] SU[employer] RX [facility] [facility] GENERIC COMMERCIAL Commercial [facility] * Guarantor: [facility] H (C) Account Type Relation to Patient Date of Phone Billing Address Corporate [place] [id number] [facility] [employer] Advance Directives For more information, please contact: [phone] * Full Code (Latest Code Status on [...] 11:23 AM 01/19/2025 1:21 PM Care Teams Software Development Manager Relationship Specialty Start Date End Date Paula Sandoval MD [address] [place] [phone] PCP - General Family Practice 10/18/24
--- OUTSIDE RECORDS SUMMARY | 2025-05-30 21:17 | XMS_ITS | Continuity of Care Document ---
Author Organization [facility] - [facility] Amee, L.LGaboCGabo, [facility] ([facility]) Address [address] [facility] [place] [address] Assessment No assessment recorded. Plan of Treatment [...] % ear drops, susp 025 04/27/20 25 [facility], [address], [place], [address], 11:03:10 Patient TargetsNo targets recorded. Patient Instructions Encounter Date Encounter Id Patient Instructions Last Modified By Organization Details Last Modified Time 04/27/2025 [id number] Use drops and follow up for worsening [id number] Not available 04/27/2025 12:15:02 Reason for Referral None Reported. Problems Name Problem SNOMED Code Status Onset Date Resolution Date Notes Provider Name and Address Organization Details Recorded Time Open heart surgery 2645458 Active 2020 Open heart 4-bypass [address] Jean; 05/10/2021 2:25PM by Bernadette Bonilla RN, Office Visit; Promoted; acuity set as *; Not Available [facility] 3 03:16:24 Cardiac pacemaker in situ 791373209 Active 2020 STATUS CARDIAC PACEMAKER; Recorded 05/10/2021 2:25PM by Bernadette Bonilla RN, Office Visit; Promoted; acuity set as *; Not Available [facility] 3 03:16:27 Leukemia 70437115 Active 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 Mann; 05/10/2021 2:25PM by Bernadette Bonilla RN, Office Visit; Promoted; acuity set as *; Not Available [facility] 3 03:16:30 Benign essential hypertens ion 6485062 Active 2020 Hypertensi on; 05/10/2021 2:25PM by Bernadette Bonilla RN, Office Visit; Promoted; acuity set as *; Not Available [facility] 3 03:16:35 Type 2 diabetes mellitus without complicat ion 037231581 Active 2020 Non-Insuli n Dependent Diabetes Mellitus; pt test QID; 05/10/2021 2:25PM by Bernadette Bonilla RN, Office Visit; Promoted; acuity set as *; Not Available [facility] 3 03:16:37 Problem Notes None recorded. Medical Equipment None Reported. Allergies Allergen ID Allergen Name Allergen Category Reaction Reaction Severity Criticality Documentation Date Start Date Code Code System Note Provider Name and Address Organization Details Recorded Time 25865 iodine medicatio n Not available Not available Not available 01/18/2023 5933 RxNorm Comme nt: Recor ded 05/10 2:25P M by Ryan Bonilla RN, Offic e Visit ; Promo emmanuel; Le gagnon ce: *; Reaso n: Drug aller gy; ; Not Available [facility] 3 02:24:23 72656 Uloric medicatio n hives Not available Not available 01/18/2023 02545 6 RxNorm React ion: Hives ; Comme nt: Recor ded 05/10 2:25P M by Ryan Bonilla RN, Offic e Visit ; Promo emmanuel; Signi kalin ce: *; Reaso n: Drug aller gy; ; Not Available [facility] 3 02:24:23 33030 allopurin ol medicatio n abdominal pain Not available Not available 01/18/2023 519 RxNorm React ion: Abdom inal pain, Hives ; Comme nt: Recor ded 05/10 2:25P M by Ryan Bonilla RN, Offic e Visit ; Promo emmanuel; Signi kalin ce: *; Reaso n: Drug aller gy; ; Not Available [facility] 3 02:24:23 13886 Flomax medicatio n other Not available Not available 01/18/2023 17384 3 RxNorm React ion: Blood disor luz marina; Comme nt: Recor ded 05/10 2:25P M by Ryan Bonilla RN, Offic e Visit ; Promo emmanuel; Signi kalin ce: *; Reaso n: Drug aller gy; ; Not Available [facility] 3 02:24:23 02036 Levaquin medicatio n hallucina tions Not available Not available 01/18/2023 03496 2 RxNorm React ion: demen tia, confu garfield, hallu cinat ions, agita tion; Comme nt: Recor ded 05/10 2:25P M by Ryan Bonilla RN, Offic e Visit ; Promo emmanuel; Signi kalin ce: *; Reaso n: Drug aller gy; ; Not Available [facility] 3 02:24:23 89553 Seroquel medicatio n hallucina tions Not available Not available 01/18/2023 37153 RxNorm React ion: hallu cinat ions; Comme nt: Recor ded 05/10 2:25P M by Ryan Bonilla RN, Offic e Visit ; Promo emmanuel; Signi kalin ce: *; Reaso n: Drug aller gy; ; Not Available [facility] 3 02:24:23 Medications Name Sig Start [...] minutes x 3 prn 2019 active VO /[facility] pharmacy ; Recorded 01/20/20 21 8:38AM [...] Active three times daily 2021 active v/o JR/ms Dx- E11.8; 173; Recorded 08/08/19 22 4:10PM [...] Updated DateTime 5 180.34 cm 30.6 kg/m2 90256.8 3 g 98.1 [degF] 96 % 90 /min 122/56 mm[Hg] Leila Higgins [facility], LGabo 5 10:49:54 Social History None recorded. Functional Status None recorded. Mental Status None recorded. Family History Nothing Reported. Medical History No medical history recorded. Immunizations Vaccine Type Date Status Note Provider Nam e and Address Organization Details Recorded Time Td (adult), 2 Lf tetanus toxoid, preservative free, adsorbed [address] [facility] 01/18/2023 02:50:56 Influenza, split virus, trivalent, preservative [address] [facility] 01/18/2023 02:50:56 pneumococcal, unspecified formulation [address] [facility] 01/18/2023 02:50:56 zoster, unspecified formulation [address] [facility] 01/18/2023 02:50:56 Influenza, split virus, trivalent, preservative [address] [facility] 01/18/2023 02:50:56 pneumococcal polysaccharide PPV23 [address] [facility] 01/18/2023 02:50:56 COVID-19, mRNA, LNP-S, PF, 30 mcg/0.3 mL dose [address] [facility] 01/18/2023 02:50:57 COVID-19, mRNA, LNP-S, PF, 30 mcg/0.3 mL dose [address] [facility] 01/18/2023 02:50:57 Past Encounters Encounter ID Performer Location Encounter Start Date Encounter Closed Date Diagnosis/Indication Diagnosis SNOMED-CT Code Diagnosis ICD10 Code Diagnosis IMO Codes Diagnosis Note [id number] SHERLYN CORREA APRN [facility] ([facility]) [address] [place] [address] 04/27/2025 10:38:31 04/27/2025 12:26:23 Acute otitis externa of left ear 5127216841 079287 H60.502 [id number] Health Concerns Section Related Observation LastModified by Organization Detai ls LastModified Time None Recorded Concern Status LastModified by Organization Details LastModified Time None Recorded Payers Encounter Date Sequence Insurance Name Policy Number Policy Cedillo Covered Member ID Cedillo Member ID Guarantor Name 04/27/2025 2 [employer] (MEDICARE SUPPLEMENT) Valente Renae [id number] Valente Renae 04/27/2025 1 [place]IC[place] Valente Renae [id number] Valente Renae Notes Date Note Type Note Provider Name and Address Organization Details Recorded Time 04/27/2025 text/html Walk inEar ache. Left side. No drainage, no fever. No sore throat. Started x2 weeks ago after pneumonia. Not a constant pain. Has been wearing aids again SHERLYN CORREA, [address] [place], [address], [facility] 04/27/2025 12:15:16
--- OUTSIDE RECORDS SUMMARY | 2025-05-30 21:17 | XMS_ITS | Encounter Summary ---
Author Organization [facility] Address [address] [place] [address] Care Team Providers Care Civil Celebrant Name Role Phone Paula Sandoval MD Primary Care Provider + [phone] Encounter Details Date Type Department Care Team (Late st Contact Info) Description 05/12/2025 Results Follow-Up [facility] [address] [facility] [address] [place] [address] Lyndsey Dorsey, MARCELLO [address] [facility] [address] [place] [address] LIPID PANEL Social History Tobacco [...] st Contact Info) Description 06/06/2025 3:30 PM GAG WRITER Video Visit [facility] [place] [address] [facility] [address] [place] [phone] Mckenzie Merino, ALL [address] [place] [address] 06/08/2025 11:30 AM GAG WRITER Hospital Encounter [facility] Interventional Radiology [address] [place] [address] Klarissa Flowers MD [address] [facility] [address] [place] [phone] Greg Razo MD [address] [place] [phone] 07/18/2025 11:00 AM GAG WRITER Office Visit [facility] Card[facility] [address] [place] [address] Sotero Alejandro MD [address] [place] [address] Eliana Davis NP [address] [place] [address] 08/03/2025 11:30 AM GAG WRITER Appointment [facility] Services [address] [place] [address] 08/10/2025 9:00 AM GAG WRITER Office Visit [facility] [place] [address] [place] [address] Umm Dotson, [address] [place] [address] 10/20/2025 8:00 AM CDT Procedure visit [facility] [address] [place] [address] Sotero Alejandro MD [address] [place] [address] 01/09/2026 1:00 PM CDT Office Visit [facility] [address] [place] [address] Warren Sweeney MD [address] [place] [address] Lyndsey Dorsey, MARCELLO [address] [place] [address] documented as of this encounter Visit Diagnoses Not on filedocumented in this encounter Care Teams Civil Celebrant Relationship Specialty Start Date End Date Paula Sandoval MD [address] [place] [phone] PCP - General Family Practice 10/18/24 documented as of this encounter
--- OUTSIDE RECORDS SUMMARY | 2025-05-30 21:17 | XMS_ITS ---
Author Organization [facility] Address [address] [place] [address] Phone Care Team Providers Care Java Software Developer Name Role Phone Paula Sandoval MD Primary Care Provider + [phone] Active Problems Problem Noted Date Diagnosed Date [...] lobe of lung 03/29/2024 Lesion of right [place] kidney 03/29/2024 Acute hypoxic respiratory failure [...]
[2025-05-30] MEDS: remdesivir 200 MG in sodium chloride 0.9% (100 ml) 100 ML 100 MG IV (21:57)
[2025-05-31] VITALS (10 sets, daily range): BP systolic 111–136; BP diastolic 53–76; PULSE 65–82; RESP 16–17; TEMP 36.6–36.8; O2SAT 94–98
--- OUTSIDE RECORDS SUMMARY | 2025-05-31 05:16 | XMS_ITS | Patient Health Record ---
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) Active confirmed Problem Anemia in chronic kidney disease (518002953) 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) Active confirmed Problem Type II diabetes mellitus without complication (260166089) Type 2 diabetes mellitus without complications (E11.9) Active confirmed Problem Chronic kidney disease due to hypertension (643805355690625) Hypertensive chronic kidney disease with stage 1 through stage 4 chronic kidney disease, or unspecified chronic kidney disease (I12.9) Active confirmed Problem Chronic kidney disease stage 4 (061378109) Chronic kidney disease, stage 4 (severe) (N18.4) Active confirmed Problem Secondary hyperparathyroidism of renal origin (32547112) Secondary hyperparathyroidism of renal origin (N25.81) Active confirmed Problem Dependence on renal dialysis (814713454) Dependence on renal dialysis (Z99.2) Active confirmed Problem Essential hypertension (22786158) HTN (hypertension), benign (I10) Active confirmed Problem Chronic kidney disease stage 4 (000119226) CKD (chronic kidney disease), stage IV (N18.4) Active confirmed Problem Hyperparathyroidism (17267465) Hyperparathyroidism (E21.3) Active confirmed Problem Benign hypertension (37366922) Hypertension, benign (I10) Active confirmed Problem Chronic lymphoid leukemia, disease (18953550) CLL (chronic lymphocytic leukemia) (C91.10) Active confirmed Problem Chronic kidney disease stage 4 (685093733) Chronic kidney disease, stage IV (severe) (N18.4) Active confirmed Problem Benign prostatic hypertrophy with outflow obstruction (355084973) BPH NOS w ur obs/LUTS (N40.1) Active confirmed Problem Chronic kidney disease stage 3A (disorder) (587275206) Chronic kidney disease, stage 3a (N18.31) Active confirmed Problem End stage renal disease (45160006) End-stage renal disease (ESRD) (N18.6) Active confirmed Encounters Encounter Location Date Provider Diagnosis [facility] [address] [place] [address] Dr [address] [place] [address] 07/19/2024 Tito Leone [facility] [address] [place] [address] 07/16/2024 Tito Leone Plan Of Treatment Pending Test Test Name Order Date Basic Metabolic Panel (BMP) 24941 2023 Hemoglobin 72907 09/30/2023 Magnesium (B) 78273 09/30/2023 Phosphorus (B) 71022 09/30/2023 Protein (U) Random 32488 09/30/2023 Uric Acid (B) 83631 09/30/2023 Creatinine (U) 48965 09/30/2023 UA Reflex Micro, Reflex Cult 88901, 8101 5, 39233 09/30/2023 PTH Intact 05341 09/30/2023 Basic Metabolic Panel (BMP) 56679 2020 Phosphorus (B) 98302 12/07/2020 PTH Intact 65691 12/07/2020 Basic Metabolic Panel (BMP) 10139 2022 Ferritin 66042 06/18/2023 Hemoglobin 28002 06/18/2023 Iron Binding Capacity Total 62330 2022 Iron Level 46735 06/18/2023 Magnesium (B) 38145 06/18/2023 Phosphorus (B) 84126 06/18/2023 Protein (U) Random 29797 06/18/2023 Uric Acid (B) 92036 06/18/2023 Creatinine (U) 59614 06/18/2023 UA Reflex Micro, Reflex Cult 20325, 8101 5, 94759 06/18/2023 PTH Intact 37051 06/18/2023 Albumin 25810 02/03/2024 Basic Metabolic Panel (BMP) 07001 2023 Ferritin 33341 02/03/2024 Hemoglobin 21150 02/03/2024 Iron Binding Capacity Total 84156 2023 Iron Level 51638 02/03/2024 Magnesium (B) 48167 02/03/2024 Phosphorus (B) 58834 02/03/2024 Protein (U) Random 85060 02/03/2024 Uric Acid (B) 87848 02/03/2024 Vitamin D Total (B) 59231 02/03/2024 Creatinine (U) 65393 02/03/2024 UA Reflex Micro, Reflex Cult 24419, 8101 5, 25692 02/03/2024 PTH Intact 27612 02/03/2024 % Iron Saturation (Fe & TIBC)--18624,835 50 02/03/2024 Future Test Test Name Order Date Basic Metabolic Panel (BMP) 61465 2023 CBC w\ Auto Diff 74278 06/17/2024 Ferritin 22391 06/17/2024 Hemoglobin 64381 06/17/2024 Magnesium (B) 09179 06/17/2024 Phosphorus (B) 18467 06/17/2024 Protein (U) Random 75898 06/17/2024 Uric Acid (B) 44930 06/17/2024 Microalbumin (U) Random 55759 06/17/2024 Creatinine (U) 08799 06/17/2024 UA Reflex Micro, Reflex Cult 95563, 8101 5, 02086 06/17/2024 PTH Intact 23547 06/17/2024 % Iron Saturation (Fe & TIBC)--89717,835 50 06/17/2024 Insurance Providers Payer Name Payer Address Payer Phone Subscriber Number Group Number Insured Name Patient Relationship to Insured Coverage Start Date Coverage End Date [place] [address] [place] [phone] [id number] Valente Renae Self - patient is the insured 9 [employer] [address] [place] [phone] [id number] Valente Renae Self - patient is the [...]
--- OUTSIDE RECORDS SUMMARY | 2025-05-31 05:17 | XMS_ITS ---
Author Organization [facility] Address [address] [place] [address] Phone Care Team Providers Care Environmental Aid Name Role Phone Paula Sandoval MD Primary Care Provider + [phone] Active Problems Problem Noted Date Diagnosed Date [...] lobe of lung 03/29/2024 Lesion of right [place] kidney 03/29/2024 Acute hypoxic respiratory failure 03/29/2024 [...]
--- OUTSIDE RECORDS SUMMARY | 2025-05-31 05:17 | XMS_ITS | Clinical Summary ---
Author Organization [facility] Address [address] [address] Phone Care Team Providers Care Open Hearth Helper Name Role Phone Paula Sandoval MD Primary Care Provider + [phone] Allergies Active Allergy Reactions Criticality Noted Date [...] Constipation. Active fluticasone propionate (FLONASE) 50 mcg/spray [place], Suspension nasal inhaler Administer 1 [place] in each nostril 2 times daily. Active [...] lobe of lung 03/29/2024 Lesion of right pala kidney 03/29/2024 Acute hypoxic respiratory failure 03/29/2024 Anemia 03/29/2024 Thrombocytopenia 03/29/2024 Impaired mobility 02/02/2021 CLL (chronic lymphocytic leukemia) 02/02/2021 History of COVID-19 02/02/2021 Generalized muscle weakness 01/30/2021 Acute cystitis without hematuria 01/30/2021 Stage 4 chronic kidney disease 11/05/2019 Chronic lymphocytic leukemia 11/05/2019 Encounters Date Type Department Care Team Description 05/12/2025 Results Follow-Up [place] [address] [place] [address] Lyndsey Dorsey NP LIPID PANEL 05/10/2025 External Device Data STL ABSTRACTION Provider, Abstract 05/09/2025 2:15 PM VEGETABLE HANDLER Procedure visit [facility] [address] [place] [phone] Sotero Alejandro MD Sick sinus syndrome (CMS/HCC) (Primary Dx); Dilated cardiomyopathy (CMS/HCC); Chronic combined systolic and diastolic CHF (congestive heart failure) (CMS/HCC); Ischemic dilated cardiomyopathy (CMS/HCC); Automatic implantable cardioverter-defibril lator in situ 05/09/2025 1:00 PM VEGETABLE HANDLER Office Visit [facility] [address] [place] [address] Lyndsey Dorsey NP Mixed hyperlipidemia (Primary Dx); Chronic combined systolic and diastolic CHF (congestive heart failure) ([facility]/HCC); Sick sinus syndrome ([facility]); Automatic implantable cardioverter-defibril lator in situ; ASHD (arteriosclerotic heart disease); Hx of CABG; ESRD (end stage renal disease) ([facility]) 04/28/2025 Orders Only [facility] Cancer and Hematology [place] [address] [place] [phone] Tom Becerril NP CLL (chronic lymphocytic leukemia) ([facility]) (Primary Dx); Thrombocytopenia 04/27/2025 Orders Only [facility] and Hematology [place] [address] [place] [phone] Tom Becerril NP CLL (chronic lymphocytic leukemia) ([facility]) (Primary Dx) 04/26/2025 External Device Data STL ABSTRACTION Provider, Abstract 04/22/2025 11:30 AM CDT Office Visit [facility] Vascular Surgery [place] [address] [place] [phone] Klarissa Flowers MD ESRD (end stage renal disease) ([facility]) (Primary Dx); S/P arteriovenous (AV) graft placement 03/22/2025 External Device Data STL ABSTRACTION Provider, Abstract 03/22/2025 Orders Only [facility] Cancer and Hematology [place] [address] [place] [phone] Umm Dotson DO 03/21/2025 1:00 PM CDT Office Visit [facility] Cancer and Hematology [place] [address] [place] [phone] Umm Dotson DO CLL (chronic lymphocytic leukemia) ([facility]/HCC) (Primary Dx); Thrombocytopenia 03/21/2025 12:05 PM CDT - 03/21/2025 11:59 PM CDT Hospital Encounter [facility] [address] [place] [address] Umm Dotson DO Discharge Disposition: Home or Self Care 03/21/2025 Telephone [facility] Vascular Surgery [place] [address] [place] [address] Klarissa Flowers MD Question 03/17/2025 Orders Only [facility] Cancer and Hematology [place] [address] [place] [address] Umm Dotson DO CLL (chronic lymphocytic leukemia) (CMS/HCC) (Primary Dx) 03/16/2025 Orders Only [facility] Cancer and Hematology [place] [address] [facility] 2 [place] [address] Umm Dotson DO CLL (chronic lymphocytic leukemia) (CMS/HCC) (Primary Dx) 03/15/2025 Telephone [facility] Vascular Surgery [place] [address] [place] [phone] Klarissa Flowers MD Appointment Notification; Question 03/14/2025 Telephone [facility] Vascular [place] [address] [facility] [address] [place] [phone] Klarissa Flowers MD Question 03/08/2025 External Device Data STL ABSTRACTION Provider, Abstract from Last 3 Months Immunizations Immunization Administration Dates Next Due (ADACEL/BOOSTRIX)(10 YR UP) TDAP VACCINE, 0.5ML, IM 12/20/2020 (HEPLISAV-B)(18 YR UP) HEPAT ITIS B VACCINE CPG-ADJUVANTED (HEPB-CPG) 2-4 DOSE, IM 04/29/2024 (PFIZER)(12 YR UP) COVID-19 VACCINE - EMERGENCY USE AUTHORIZATION, MRNA, [id number]) 30 MCG/0.3 ML IM SUSP 08/18/2020,07/24/2020,06/23/2020 (PNEUMOVAX [...] Comments Blood Pressure 110/64 05/09/2025 12:52 PM VEGETABLE HANDLER Pulse 78 05/09/2025 12:52 PM VEGETABLE HANDLER Temperature 36.4 C (97.5 F) 03/21/2025 1:00 PM CDT Respiratory Rate 17 02/07/2025 2:50 PM CDT Oxygen Saturation 98% 05/09/2025 12: 52 PM VEGETABLE HANDLER Inhaled Oxygen Concentration - - Weight 100.3 kg (221 lb 3.2 oz) 12:52 PM VEGETABLE HANDLER Height 180.3 cm (5' 11 ) 05/09/2025 12: 52 PM VEGETABLE HANDLER Body Mass Index 30.85 05/09/2025 12:52 PM VEGETABLE HANDLER Plan of Treatment Upcoming Encounters Date Type Department Care Team (Late st Contact Info) Description 06/06/2025 3:30 PM VEGETABLE HANDLER Video Visit [facility] Cancer and Hematology [place] [address] [facility] [address] [place] [phone] Mckenzie Merino, [facility] [address] [place] [phone] 06/08/2025 11:30 AM VEGETABLE HANDLER Hospital Encounter [facility] Interventional Radiology [address] [place] [phone] Klarissa Flowers MD [address] [facility] [address] [place] [phone] Greg Razo MD [address] [place] [address] 07/18/2025 11:00 AM VEGETABLE HANDLER Office Visit [facility] Cardiology Heart [facility] [address] [place] [address] Sotero Alejandro MD [address] [place] [phone] Eliana Davis NP [address] [place] [phone] 08/03/2025 11:30 AM VEGETABLE HANDLER Appointment [facility] [address] [place] [address] 08/10/2025 9:00 AM VEGETABLE HANDLER Office Visit [facility] Cancer and Hematology [place] [address] [place] [address] Umm Dotson DO [address] [place] [address] 10/20/2025 8:00 AM CDT Procedure visit [facility] [address] [place] [address] Sotero Alejandro MD [address] [facility] [address] [place] [address] 01/09/2026 1:00 PM CDT Office Visit [facility] [address] [place] [address] Warren Sweeney MD [address] [facility] [address] [place] [address] Lyndsey Dorsey NP [address] [place] [address] Health Maintenance Due Date Last [...] years Discontinued Medical Devices Implanted Type Area Contracting Executive Device Identifier Shelf Expiration Date Model / Serial / Lot Cath Dialysis Glidepath 14.5fr 23cm Std [id number] - [id number] Implanted:Qty : 1 on 04/01/2024 by Kim Flowers MD at [facility] Catheter Right: Chest BARD NUVIA VASC [id number] 09/20/2025 [id number] / / [id number] Clip Ligating Horizon Red 270994 - [facility] [place] - [id number] Implanted:Qty : 1 on 11/29/2024 by Klarissa Flowers MD at [facility] Clip Right: Arm [employer]LE[employer] INC [id number] 08/06/2029 [id number] / / [id number] Clip Ligating Horizon Med Ti 865788 - [facility] [place] - [id number] Implanted:Qty : 1 on 11/29/2024 by Klarissa Flowers MD at [facility] Clip Right: Arm TELEFLEX- WECK CLOSURE SYS [id number] 05/30/2029 [id number] / / [id number] Electric Crane Operator-D [place] Xt Hf Quad Mri [id number] Df4 Surescan Sreu4cs - [id number] Implanted:Qty : 1 on 01/19/2025 by Sotero Alejandro MD at [facility] Defibrillator N/A: Chest Wall MEDTRONIC- CARD RHYTHM MGMT [id number] 04/19/2026 [id number] / [id number] / Graft Vasc Propaten [id number] - [id number] Implanted:Qty : 1 on 11/29/2024 by Klarissa Flowers MD at [facility] Graft Right: Arm [employer] [id number] 07/19/2027 [id number] / [id number] / Agent Hemostat Surgicel 2x3in 1952s - [id number] Implanted:Qty : 1 on 11/29/2024 by Klarissa Flowers MD at [facility] Hemostatic Right: Arm J&J- [employer] INC [id number] 09/20/2028 1953S / / [id number] Lead Sprint Quattro Secure 62cm [id number] - Csc - [id number] Implanted:Qty : 1 on 01/19/2025 by Sotero Alejandro MD at [facility] Lead N/A: Chest Wall MEDTRONIC- CRM - BULK BUY [id number] 10/20/2026 [id number] / [id number] V / Lead Attain 88cm St Vent Quad 4798-88 - [id number] Implanted:Qty : 1 on 01/19/2025 by Sotero Alejandro MD at [facility] Lead N/A: Chest Wall MEDTRONIC- CARD RHYTHM MGMT [id number] 08/25/2026 4798-88 / [id number] V / Pacemaker Procedures Procedure Name Priority Date/Time Associated Diagnosis Comments LIPID PANEL Routine 05/11/2025 9:52 AM VEGETABLE HANDLER Chronic combined systolic and diastolic CHF (congestive heart failure) (CMS/HCC) Sick sinus syndrome (CMS/HCC) Automatic implantable cardioverter-defibril lator in situ ASHD (arteriosclerotic heart disease) Hx of CABG ESRD (end stage renal disease) (CMS/HCC) Mixed hyperlipidemia CO PROGRAM EVAL, IMPLANT DEVICE CARDVERT/DEFIB,MULTI- LEAD W/IN GLOBAL Routine 05/09/2025 2:51 PM VEGETABLE HANDLER Sick sinus syndrome (CMS/HCC) Dilated cardiomyopathy (CMS/HCC) Chronic combined systolic and diastolic CHF (congestive heart failure) (CMS/HCC) Ischemic dilated cardiomyopathy (CMS/HCC) Automatic implantable cardioverter-defibril lator in situ LACTATE DEHYDROGENASE Routine 04/29/2025 10:25 AM VEGETABLE HANDLER CLL (chronic lymphocytic leukemia) (CMS/HCC) Thrombocytopenia COMPREHENSIVE METABOLIC PANEL Routine 04/29/2025 10:25 AM VEGETABLE HANDLER CLL (chronic lymphocytic leukemia) (CMS/HCC) Thrombocytopenia CBC WITH DIFFERENTIAL Routine 04/29/2025 10:25 AM VEGETABLE HANDLER CLL (chronic lymphocytic leukemia) (CMS/HCC) Thrombocytopenia COMPREHENSIVE METABOLIC PANEL Stat 03/21/2025 12:21 PM CDT CLL (chronic lymphocytic leukemia) (CMS/HCC) CBC WITH DIFFERENTIAL Stat 03/21/2025 12:21 PM CDT CLL (chronic lymphocytic leukemia) (CMS/HCC) LACTATE DEHYDROGENASE Routine 03/21/2025 12:16 PM CDT CLL (chronic lymphocytic leukemia) (CMS/HCC) URIC ACID Routine 03/21/2025 12:16 PM CDT CLL (chronic lymphocytic leukemia) (CMS/HCC) MICROALBUMIN/CREATINI NE RATIO, RANDOM UR Routine 03/29/2024 6:06 PM CDT HEMOGLOBIN A1C Routine 03/29/2024 1:24 AM CDT from Last 3 Months or Most Recently Relevant to Health Maintenance Results * LIPID PANEL (05/11/2025 9:52 AM VEGETABLE HANDLER) CHOLESTEROL 123 <200 mg/dL [facility] HDL 52 > OR = 40 mg/dL [facility] TRIGLYCERIDE 49 <150 mg/dL [facility] LDL CALCULATED 57 mg/dL (calc) [facility] Comment: Reference range: <100 Desirable range <100 mg/dL for primary prevention; <70 mg/dL for patients with CHD or diabetic patients with > or = 2 CHD risk factors. LDL-C is now calculated using the Lara calculation, which is a validated novel method providing better accuracy than the Friedewald equation in the estimation of LDL-C. Rakan SS et al. ANGELA. 2013;310(24): 9744-6029 (http://education.[employer]faq/TNZ105) CHOL/HDL RATIO 2.4 <5.0 (calc) [facility] NON-HDL CHOLESTEROL 71 <130 mg/dL (calc) [facility] Comment: For patients with diabetes plus 1 major ASCVD risk factor, treating to a non-HDL-C goal of <100 mg/dL (LDL-C of <70 mg/dL) is considered a therapeutic option. Test Performed at: [facility] [address] [place] [address] Tawanda Roca MD Blood 05/11/2025 9:5 2 AM VEGETABLE HANDLER 05/11/2025 9:53 AM VEGETABLE HANDLER Lyndsey Dorsey NP CHEMISTRY ORDERABLES Fi nal Result [facility] [phone] [facility] [address] [place] [address] * CO PROGRAM EVAL, IMPLANT DEVICE CARDVERT/DEFIB,MULTI-LEAD W/IN GLOBAL (05/09/2025 2:51 PM VEGETABLE HANDLER) 05/09/2025 2:51 PM VEGETABLE HANDLER Narrative INTERFACE SYSTEM - 05/09/2025 5:18 PM VEGETABLE HANDLER Office Device Check Report Date of Procedure: [...] (ABNORMAL) CBC WITH DIFFERENTIAL (04/29/2025 10:25 AM VEGETABLE HANDLER) Only the most recent of2 resultswithin the time period is included. WBC [...] present. Macrocytosis 1 + Test Performed at: [facility] [place] [address] Tawanda Roca MD Blood 04/29/2025 10:2 5 AM VEGETABLE HANDLER 04/29/2025 10:25 AM VEGETABLE HANDLER Tom Becerril NP HEMATOLOGY ORDERABLES Final Result Performing Organization Address [facility]/ZIP Co de Phone Number [facility] [phone] [facility] [address] [address] * LACTATE DEHYDROGENASE (04/29/2025 10:25 AM VEGETABLE HANDLER) Only the most recent of2 resultswithin the time period is included. Pathologist [facility] (LACTATE DEHYDROGENASE) 160 120 - 250 U/L [facility] Comment: Test Performed at: [facility] [address] Tawanda Roca MD Blood 04/29/2025 10:2 5 AM VEGETABLE HANDLER 04/29/2025 10:25 AM VEGETABLE HANDLER Tom Becerril NP CHEMISTRY ORDERABLES Final R esult [facility] [phone] [facility] [address] [place] [address] * (ABNORMAL) COMPREHENSIVE METABOLIC PANEL (04/29/2025 10:25 AM VEGETABLE HANDLER) Only the most recent of2 resultswithin the time period is included. GLUCOSE [...] [facility] Comment: Test Performed at: [facility] [address] [facility] [place] [address] Tawanda Roca MD Blood 04/29/2025 10:2 5 AM VEGETABLE HANDLER 04/29/2025 10:25 AM VEGETABLE HANDLER us Tom Becerril NP CHEMISTRY ORDERABLES Final R esult [facility] [phone] [facility] [address] [facility] [address] * URIC ACID (03/21/2025 12:16 PM CDT) URIC ACID 4.5 4.0 - 8.0 mg/dL [facility] Comment: Therapeutic target for gout patients: <6.0 mg/dL Test Performed at: [facility] [address] [facility] [place] [address] Tawanda Roca MD Blood 03/21/2025 12:1 6 PM CDT 03/21/2025 10:25 PM CDT us Umm Dotson DO CHEMISTRY ORDERABLES Fi nal Result [facility] [phone] [facility] [address] [place] [address] * (ABNORMAL) MICROALBUMIN/CREATININE RATIO, RANDOM UR (03/29/2024 [...] Performing Organization Information: Site ID: [place] Name: [facility] Address: [address] [place] [address] Director: Tawanda Roca MD us Jillian Monge MD URINE ORDERABLES Final Result Performing Organization Address City/[facility] Co de Phone Number [facility] * (ABNORMAL) HEMOGLOBIN A1C (03/29/2024 1:24 AM CDT) HEMOGLOBIN A1C 7.1(H) <=5.6 % 03/29/2024 12:00 PM CDT [facility] EST. AVG GLUCOSE, A1C 157 mg/dL 03/29/2024 12:00 PM CDT [facility] Blood Venipuncture / Unknown 03/29/2024 1:24 AM CDT 03/29/2024 1:51 AM CDT Narrative [facility] - 03/29/2024 12:00 PM CDT HGB A1C INTERPRETATION NORMAL: <5.7% PRE-DIABETES: 5.7 - 6.4% DIABETES: 6.5% OR GREATER Jaciel Yuan MD CHEMISTRY ORDERABLES Final R esult Performing Organization Address City/[facility] Co de Phone Number [facility] CLIA # [id number] [address] [place] [address] [phone] from Last 3 Months or Most Recently Relevant to Health Maintenance Insurance MEDICARE PART A AND B [employer] SU[facility] [employer] GENERIC COMMERCIAL Commercial [facility] OPTUM [place] CC[employer] OPTUM Advance Directives For more information, please contact: [phone] * Full Code (Latest Code Status on [...] 11:23 AM 01/19/2025 1:21 PM Care Teams Open Hearth Helper Relationship Specialty Start Date End Date Paula Sandoval MD [address] [place] [phone] PCP - General Family Practice 10/18/24
--- OUTSIDE RECORDS SUMMARY | 2025-05-31 05:17 | XMS_ITS | Encounter Summary ---
Author Organization [facility] Address [address] [place] [address] Care Team Providers Care Hearing Aid Mechanic Name Role Phone Paula Sandoval MD Primary Care Provider + [phone] Encounter Details Date Type Department Care Team (Late st Contact Info) Description 05/12/2025 Results Follow-Up [facility] [address] [facility] [address] [place] [address] Lyndsey Dorsey, MARCELLO [address] [facility] [address] [place] [address] LIPID PANEL Social History Tobacco [...] st Contact Info) Description 06/06/2025 3:30 PM AQUA AMMONIA OPERATOR Video Visit [facility] Cancer and Hematology [place] [address] [facility] 2 [place] [address] Mckenzie Merino, ALL [address] [place] [address] 06/08/2025 11:30 AM AQUA AMMONIA OPERATOR Hospital Encounter [facility] Interventional Radiology [address] [place] [address] [place] [address] Klarissa Flowers MD [address] [facility] [address] [place] [phone] Greg Razo MD [address] [place] [address] 07/18/2025 11:00 AM AQUA AMMONIA OPERATOR Office Visit [facility] Cardiology Heart [facility] [address] [place] [address] Sotero Alejandro MD [address] [place] [address] Eliana Davis NP [address] [place] [phone] 08/03/2025 11:30 AM AQUA AMMONIA OPERATOR Appointment [facility] Laboratory Services [address] [place] [address] 08/10/2025 9:00 AM AQUA AMMONIA OPERATOR Office Visit [facility] Cancer and Hematology [place] [address] [place] [address] Umm Dotson, [address] [place] [address] 10/20/2025 8:00 AM CDT Procedure visit [facility] [address] [place] [address] Sotero Alejandro MD [address] [place] [address] 01/09/2026 1:00 PM CDT Office Visit [facility] [address] [place] [address] Warren Sweeney MD [address] [place] [address] Lyndsey Dorsey, MARCELLO [address] [place] [address] documented as of this encounter Visit Diagnoses Not on filedocumented in this encounter Care Teams Hearing Aid Mechanic Relationship Specialty Start Date End Date Paula Sandoval MD [address] [place] [phone] PCP - General Family Practice 10/18/24 documented as of this encounter
[2025-05-31] MEDS: insulin glargine 100 units/1 mL 35 UNIT SUBCUT (08:18)
--- NOTE | 2025-05-31 09:56 | P.PN_ITS ---
Subjective 2 Subjective: 05/31/25 Hospital Day 1 * Patient seen at bedside for follow-up on newly diagnosed COVID-19 infection. Patient appears to have notable clinical improvement from yesterday. Lethargy has resolved, and he is more alert, interactive and engaging appropriately. He denies new or worsening respiratory symptoms. He has been weaned to room air, which is his baseline. Afebrile overnight and rest of his vital signs remained stable. Patient is very engaged with the flutter valve and his incentive spirometer. Patient is not expressing any acute concerns at this time. * Vital signs over the past 12 hours reviewed. Overall improving. Temp 97.8- 99.1F range, SBP 120-130s and DBP 60-90, HR 60-80s, RR 16-17, SpO2 95-97%. Currently on room air. He was weaned off supplemental oxygen. Vitals/I&O/Wt Last Vital Signs Temp 97.8 F 05/31/25 07:21 Pulse 71 05/31/25 07:21 Resp 16 05/31/25 07:21 BP 133/76 05/31/25 07:21 Pulse Ox 97 05/31/25 07:21 O2 Del Method Nasal Cannula 05/31/25 07:21 O2 Flow Rate 2 05/31/25 03:35 05/30/25 05/31/25 05/31/25 22:59 06:59 14:59 Intake Total 300 / 300 300 / 600 120 / 120 Output Total 80 / 80 Balance 300 / 300 220 / 520 120 / 120 Weight last 48 hrs Weight 95.254 kg Weight 95.708 kg Weight 100.244 kg Physical Exam 2 Narrative: Constitutional: NAD Neurorogic: Awake and alert. Oriented to self, place, year and situation. Lethargy resolved. Interactive today. No facial asymmetry, unilateral weakness or speech deficits. Head NC/AT Eyes PERRLA. EOMI. Sclera anicteric. ENT Normal external ears. Diminished hearing. Normal external nose. No epistaxis. MMM. Respiratory Diminished RML/RLL/LLL. Mild expiratory wheeze RLL. Mild upper airway congestion. No accessory muscle use. Now on room air. Heart / CV Regular. Extremities No edema bilaterally Abdomen / GI Rounded. Soft. Mild tenderness at RUQ. ND. +BS Biliary drain present. Genitourinary No calero catheter Data 05/31/25 11:06 05/31/25 11:06 Micro: Microbiology 05/30/25 17:34 Blood Culture - Preliminary Blood SPECIMEN COLLECTED 05/30/25 17:30 Blood Culture - Preliminary Blood SPECIMEN COLLECTED A&P Assessment and plan 1. Acute respiratory failure with hypoxia: 2. COVID-19 in immunocompromised patient: 3. End stage renal disease on dialysis: Plan: # Acute hypoxic respiratory failure # COVID 19 Covid-19+ on 05/30/25 Not oxygen dependent at baseline Immunocompromised (h/o CLL, ESRD, DM) CRP 6.4 - 05/31/25 overall marked improvement today - 05/31/25 weaned off supplemental oxygen - Dexamethasone 6 mg PO daily x10 days - Remdesivir - Labs: blood cultures collected in ED, results pending CMP, LA, PCT, LDH (some labs from yesterday did not resolve, adding on again) - RT assess & treat - Continuous pulse oximetry - Oxygen therapy protocol - Flutter valve / incentive spirometer - Isolation precautions # ESRD on hemodialysis Outpatient dialysis clinic: [facility] Outpatient dialysis days: MWF Vascular access: RUE AVG Last outpatient dialysis: 05/30/25 - Will need to consult nephrology for HD treatment if not discharged by friday - Diet: renal-diabetic dialysis diet w/ 1.5L fluid restriction # Microcytic Anemia Baseline HGB 10 g/dL range. Presenting HGB 10.0 g/dL. - At baseline, continue trending # Moderate thrombocytopenia Ongoing since at least 2020. Since December 2024 trending 60-80K. 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 - Resume DIE CUT OPERATOR cardioprotective meds. isosorbide moninitrate 30 mg daily carvedilol 3.125 mg daily - DIE CUT OPERATOR not on ASA or statin # DM 2T A1c 7.0 (01/14/25). Controlled. BG level elevated, suspect to be steroid induced - Glucose checks: AC/HS - Insulin glargine 35 units QAm, restarted overnight - Increased SSI from mild -> medium scale # CLL VTE PPx: SCDs, heparin/lovenox contraindicated due to low platelet count F/U on labs, 05/31/25 1500 Infection / Inflammation LA 1.4 LDH 190 PCT 0.91 Hemogram WBC 7.35 RBC 3.0 Hgb 9.4 PLT 66 Chemistry NA 131 K5.3 CL 92 Ca 8.6 Glu 374 CO2 28 AG 16.3 BUN 23 Cr 3.6 AST 8 ALT <5 ALP 89 T.Bili 0.7 Labs fairly stable given underlying ESRD Pseudohyponatremia in setting of elevated glucose Hyperglycemia secondary to steroid use Thrombocytopenia PLT 83 -> 66, still within his baseline 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 Given complexity of patient's presentation, co-morbid conditions, and required intensity of treatment, a hospitalization exceeding two midnights is anticipated. Coding Level of Care Code 57190 Diagnoses Acute respiratory failure with hypoxia J96.01 COVID-19 in immunocompromised patient U07.1; D84.9 End stage renal disease on dialysis N18.6; Z99.2
--- NOTE | 2025-05-31 10:36 | PC.CHAP ---
Pastoral Care Encounter/Spiritual Assessment Type of Contact [] Declined salvage worker visit [] Patient/Family/Request visit [] Outpatient visit [] Follow-up visit [] Physician referral [] Code/Alert [] Routine visit [] Staff referral [] Actively dying [] Patient sleeping [] Family support [] [] Out of room [] Palliative care [] [] Receiving care in room [] Pre-surgical visit [] Trauma [] Long length of stay [] ICU visit [x] Other:Contact precautions. No visit. Relational/Emotional Strength [] Patient feels connected with others/family/visitors/staff [] Distress [] Loneliness/isolation [] Abandonment Spirituality of Patient [] Person of Trinh [] Attends Hindu of their Trinh [] Believes in Prayer [] Reads Bible or Caodaism materials [] There are Spiritual issues to be addressed Windows Vmware Administrator Interventions [] Prayer [] Active listening [] Non-anxious presence [] Spiritual/emotional support [] Crisis/trauma care [] Spiritual counseling [] Bereavement support [] Provided bereavement packet [] Provided Bible/devotional materials [] Provided toy/stuffed animal, coloring book to patient or family member [] Provided Communion [] Anointing/[place] [] Salvation [] Completed spiritual assessment [] Other: Impact on Illness or Injury [] Angry [] Fearful [] Anxious [] Often cries [] Exhaustion [] Unable to work [] Unable to attend latter day [] Unable to walk/stand [] Unable to read [] Unable to drive [] Unable to eat/drink [] Unable to sleep [] Unable to be with family [] Patient intubated [] Other: Summary Time spent with patient
[2025-05-31 11:14] LABS: Hematocrit 30.3 % (37-53); Hemoglobin 9.40 g/dL (11.27-16.99); Mean Corpuscular HGB Conc 31.0 g/dL (30-55); Mean Corpuscular Hemoglobin 31.3 pg (27-33); Mean Corpuscular Volume 101.0 fl (82-101); Nucleated Red Blood Cells % 0 %; Platelet Count 66 10^3/cmm (157-399); Red Blood Count 3.00 10^6/uL (3.85-5.65); White Blood Count 7.35 10^3/uL (3.29-11.43)
[2025-05-31 11:31] LABS: Lactate (Lactic Acid level) 1.4 mmol/L (0.5-2.2)
[2025-05-31 11:32] LABS: Alanine Aminotransferase < 5 U/L (0-41); Albumin Level 3.7 g/dL (3.5-5.2); Alkaline Phosphatase 89 U/L (40-130); Anion Gap 16.3 (5-19); Aspartate Amino Transferase 8 U/L (0-40); Blood Urea Nitrogen 23 mg/dL (8-23); Calcium 8.6 mg/dL (8.5-10.5); Carbon Dioxide 28 mmol/L (22-29); Chloride 92 mmol/L (98-107); Globulin 2.2 g/dL (1.3-4.6); Glucose 374 mg/dL (65-115); Osmolality Calculated 291 mOsm/kg (285-295); Potassium 5.3 mmol/L (3.5-5.1); Slide Review Slide Review Perform; Sodium 131 mmol/L (136-145); Total Protein 5.9 g/dL (6.6-8.7)
[2025-05-31 12:50] LABS: Procalcitonin 0.91 ng/mL (0-0.5)
[2025-05-31] MEDS: remdesivir 100 MG in sodium chloride 0.9% (100 ml) 100 ML IV (17:06)
--- NOTE | 2025-05-31 20:35 | PM.CONSULT ---
Providers/Reason For Consult Consulting Physician/Specialty*: toño light md - telenephrology Reason for Consult*: ESRD care Requesting Physician: Minda Bates NP Attending Physician: Minda López NP Primary Care Provider: Paula Sandoval MD History of Present Illness History of Present Illness Valente Renae is a 80 year old male with PMHx of HTN, CAD s/p CABG, HLD, DM, CVA, ESRD, GERD, BPH, CLL. Nithya was admitetd yesterday from his dialysis clinic for altered mental status, throat pain, fevers, and hypoxia. HE was diagnosed with SARS- COVID-19 pneumonia. He was recently hospitalized at [facility] and he had a biliary drain placedl after endoscopic removal of a gallstone. Pt was started on dexamethasone and remdesivir. Renal is called to consult to provide ESRD care. Review of Systems Narrative: weak, SOB, confusion, cough. no n/v/d. + fevers improved. has RUQ biliary drain and some pain by drain. rest of ROS negative. Medications/Allergies Home Medications ?Medication ?Instructions ?Recorded ?Confirmed ?Last Taken ?Type docusate sodium 100 mg capsule 100 mg PO DAILY PRN Constipation 12/02/19 05/30/25 05/29/25 20:00 History (Colace) cholecalciferol (vitamin D3) 25 50 mcg PO DAILY 12/14/20 05/30/25 05/30/25 11:00 History mcg (1,000 unit) capsule diclofenac sodium 1 % topical gel 4 g topical QID PRN Pain 05/02/21 05/30/25 Unknown History insulin regular human 100 unit/mL See Rx Instructions .Route 05/02/21 05/30/25 05/28/25 19:30 History injection solution (Novolin R .COMPLEX see pharmacy comments Regular U-100 Insulin) loratadine 10 mg tablet (Claritin) 10 mg PO DAILY 05/02/21 05/30/25 05/29/25 11:00 History tamsulosin 0.4 mg capsule 0.8 mg PO QPM 10/18/21 05/30/25 05/29/25 21:00 History fluticasone propionate 50 2 spray intranasal DAILY PRN 07/16/22 05/30/25 Unknown History mcg/actuation nasal allergies spray,suspension (Flonase Allergy Relief) finasteride 5 mg tablet 5 mg PO DAILY 11/20/22 05/30/25 05/29/25 11:00 History insulin glargine 100 unit/mL (3 35 unit SUBCUT QA 11/20/22 05/30/25 05/29/25 09:00 History mL) subcutaneous pen Held on 04/02/25. Instructions: hold if glucose <140 folic acid 1 mg tablet 1 mg PO DAILY 01/13/25 05/30/25 05/29/25 11:00 History furosemide 80 mg tablet 80 mg PO [facility] 01/13/25 05/30/25 05/29/25 09:00 History isosorbide mononitrate 30 mg 30 mg PO [facility] 01/13/25 05/30/25 05/30/25 11:00 History tablet,extended release 24 hr nitroglycerin 0.4 mg sublingual 0.4 mg sublingual Q5M PRN heart 01/13/25 05/30/25 Unknown History tablet issues pantoprazole 40 mg tablet,delayed 40 mg PO DAILY 01/13/25 05/30/25 05/30/25 11:00 History release acetaminophen 500 mg tablet 500 mg PO Q6H PRN Abdominal Pain 05/30/25 05/30/25 05/30/25 18:00 History (Tylenol Extra Strength) amoxicillin 500 mg-potassium 1 tab PO BID 05/30/25 05/30/25 05/29/25 11:00 History clavulanate 125 mg tablet (Augmentin) carvedilol 3.125 mg tablet 3.125 mg PO DAILY 05/30/25 05/30/25 05/29/25 09:00 History hydrocodone 5 mg-acetaminophen 325 1 tab PO Q8H PRN pain #14 tabs 05/30/25 05/30/25 Unknown Rx mg tablet nirmatrelvir 150 mg (6)-ritonavir See Rx Instructions PO .COMPLEX 05/30/25 05/30/25 Unknown Rx 100 mg (5) tablets in a dose pack #11 ea (Paxlovid) ondansetron 4 mg disintegrating 4 mg PO TID PRN nausea and 05/30/25 05/30/25 Unknown Rx tablet vomiting #30 tabs sevelamer carbonate 800 mg tablet 500 mg PO TID 05/30/25 05/30/25 05/30/25 09:00 History Allergies Allergy/AdvReac Type Severity Reaction Status Date / Time allopurinol Allergy ALGY-Rash Verified 05/30/25 09:21 Iodinated Contrast Media Allergy ALGY-Hives Verified 05/30/25 09:21 levofloxacin (From Levaquin) Allergy ADR-Confusi Verified 05/30/25 09:21 on metformin Allergy ADR-Fatigue Verified 05/30/25 09:21 d Current Medications Generic Name Dose Route Start Last Admin Trade Name Freq PRN Reason Stop Dose Admin Acetaminophen 650 mg 05/30/25 17:48 05/30/25 18:15 Acetaminophen 325 Mg Tablet PO 650 mg Q6H PRN Administration fever Amoxicillin/Clavulanate Potassium 1 tab 05/31/25 05:00 05/31/25 17:05 Amoxicillin-Clav 875-125 Mg Tablet PO 1 tab BID DIONTE Administration Protocol Dexamethasone 6 mg 05/31/25 05:00 05/31/25 04:17 Dexamethasone 4 Mg Tablet PO 6 mg DAILY DIONTE Administration Finasteride 5 mg 05/31/25 05:00 05/31/25 04:17 Finasteride 5 Mg Tablet PO 5 mg DAILY DIONTE Administration Remdesivir 100 mg/ Sodium 100 mls @ 100 mls/hr 05/31/25 18:00 05/31/25 18:50 Chloride IV 06/03/25 18:59 Infused Q24H DIONTE Infusion Insulin Glargine 35 unit 05/31/25 09:00 05/31/25 08:18 Insulin Glargine 100 Units/1 Ml SUBCUT 35 unit QAM DIONTE Administration Pantoprazole Sodium 40 mg 05/31/25 05:00 05/31/25 04:[address] 40 Mg Tablet PO 40 mg DAILY DIONTE Administration Sevelamer Carbonate 800 mg 05/31/25 05:00 05/31/25 17:05 Sevelamer 800 Mg Tablet PO 800 mg BID DIONTE Administration PFSH Acute PFSH: Medical History (Updated 05/31/25 @ 09:44 by Javid Rothman DO) Hyperuricemia History of COVID-19 (~12/2020) Anemia, unspecified Complex renal cyst BPH loc w urin obs/LUTS Diabetes HTN (hypertension) ASHD (arteriosclerotic heart disease) Dyslipidemia CKD (chronic kidney disease) CLL (chronic lymphocytic leukemia) Carotid stenosis, bilateral Surgical History H/O removal of testicle S/P appendectomy S/P CABG (coronary artery bypass graft) S/P PTCA (percutaneous transluminal coronary angioplasty) Status cardiac pacemaker Family History Mother , in her 70's Diabetes CAD (coronary artery disease) Father , at age 69 CAD (coronary artery disease) Hypertension Other Cancer Chronic kidney disease (CKD) Stroke Suicide Denies family history of Clotting disorder Dementia Hyperlipidemia Psychiatric illness Anesthesia complication Bleeding disorder Lung disease Social History Smoking and tobacco/nicotine status: former use of tobacco/nicotine Quit status (tobacco/nicotine): has quit using Year quit tobacco: 1989 Alcohol intake: never Substance/Drug Use: never Household members: spouse Marital status: Current occupational status: retired Vitals/I&O/Wt Last Vital Signs Temp 97.8 F 05/31/25 19:51 Pulse 80 05/31/25 19:51 Resp 16 05/31/25 19:51 BP 111/61 05/31/25 19:51 Pulse Ox 95 05/31/25 19:51 O2 Del Method Room Air 05/31/25 19:51 O2 Flow Rate 2 05/31/25 03:35 05/31/25 05/31/25 05/31/25 06:59 14:59 22:59 Intake Total 300 / 600 480 / 480 460 / 940 Output Total 80 / 80 150 / 150 85 / 235 Balance 220 / 520 330 / 330 375 / 705 Weight last 48 hrs Weight 95.254 kg Weight 95.708 kg Weight 100.244 kg Physical Exam Narrative: Vital signs noted. Patient comfortable in chair no apparent distress. HEENT normocephalic atraumatic. Neck is supple no JVP. Lungs have wheezing bilaterally Heart regular positive S1-S2. Abdomen soft nontender nondistended positive bowel sounds positive right upper quadrant drain. Extremities right upper extremity AV graft with thrill and bruit. Neuro awake and alert somewhat forgetful. Data 05/31/25 11:06 05/31/25 11:06 Micro: Microbiology 05/30/25 17:34 Blood Culture - Preliminary Blood NEGATIVE TO DATE 05/30/25 17:30 Blood Culture - Preliminary Blood NEGATIVE TO DATE A&P Assessment and plan 1. End stage renal disease on dialysis: 80-year-old man ESRD 1. Continue dialysis Friday and Friday 2. COVID-19 on remdesivir and steroids. 3. Recent biliary infection with biliary drain on Augmentin. 4. Anemia monitor hemoglobin 5. Thrombocytopenia question for medication would monitor. Patient has underlying history of CLL. 6. Diabetic control as per hospitalist. 7. Please put on a diabetic renal diet low in potassium. 8. Monitor phosphorus on current Renvela dosed twice a day. The patient was seen and examined using audiovisual equipment with the aid of a nurse patient consented to telehealth and to hemodialysis. Plan: See above. PDMP PDMP Reviewed: Not Reviewed Consult Attestations Medical Necessity Statement: COVID-19 pneumonia with altered mental status and hypoxemia as per hospitalist. Time Spent in Patient Care: Greater than 35 minutes (>than 50% of time spent in counselling and/or direct pt care on unit). Coding Level of Care Code Acute Code for Chg Fwd Diagnoses End stage renal disease on dialysis N18.6; Z99.2
--- NOTE | 2025-05-31 20:59 | PC.NURSE ---
Pt and daughter at bedside asking that I only give 8 units of insulin tonight instead of 12 that the sliding scale calls for. Sugar was 314. Pt and daughter voice that if pt gets more than 8 units, pt will bottom out. Dr. Soriano notified and said to give the 8 units instead of 12. Physician notification put in.
[2025-06-01] VITALS (8 sets, daily range): BP systolic 117–141; BP diastolic 57–74; PULSE 78–96; RESP 17–18; TEMP 35.5–37.1; O2SAT 92–96
--- NOTE | 2025-06-01 04:09 | PC.NURSE ---
Around 0350, pt had a run of VTACH 27 beats long while sleeping. Awoke pt and pt stated he felt fine. Vitals checked and were okay per chart. Potassium high yesterday at 5.3. Dr. Soriano notified and physician notification put in.
[2025-06-01 05:26] LABS: Hematocrit 34.4 % (37-53); Hemoglobin 10.60 g/dL (11.27-16.99); Mean Corpuscular HGB Conc 30.8 g/dL (30-55); Mean Corpuscular Hemoglobin 31.3 pg (27-33); Mean Corpuscular Volume 101.5 fl (82-101); Nucleated Red Blood Cells % 0 %; Platelet Count 119 10^3/cmm (157-399); Red Blood Count 3.39 10^6/uL (3.85-5.65); White Blood Count 13.12 10^3/uL (3.29-11.43)
[2025-06-01 05:40] LABS: Anion Gap 17.8 (5-19); Blood Urea Nitrogen 40 mg/dL (8-23); Calcium 9.1 mg/dL (8.5-10.5); Carbon Dioxide 29 mmol/L (22-29); Chloride 92 mmol/L (98-107); Creatinine Clr Calc Pharmacy 14.9328; Glucose 166 mg/dL (65-115); Osmolality Calculated 292 mOsm/kg (285-295); Potassium 4.8 mmol/L (3.5-5.1); Sodium 134 mmol/L (136-145)
[2025-06-01 05:41] LABS: Alanine Aminotransferase 6 U/L (0-41); Albumin Level 4.1 g/dL (3.5-5.2); Alkaline Phosphatase 105 U/L (40-130); Anion Gap 18.1 (5-19); Aspartate Amino Transferase 9 U/L (0-40); Blood Urea Nitrogen 37 mg/dL (8-23); Calcium 9.0 mg/dL (8.5-10.5); Carbon Dioxide 30 mmol/L (22-29); Chloride 93 mmol/L (98-107); Globulin 1.7 g/dL (1.3-4.6); Glucose 169 mg/dL (65-115); Magnesium 2.2 mg/dL (1.7-2.3); Osmolality Calculated 295 mOsm/kg (285-295); Potassium 5.1 mmol/L (3.5-5.1); Sodium 136 mmol/L (136-145); Total Protein 5.8 g/dL (6.6-8.7)
[2025-06-01 06:01] LABS: Hepatitis B Surface Antigen Non-Reactive (Nonreactive)
[2025-06-01 06:19] LABS: Slide Review Slide Review Perform
[2025-06-01] MEDS: insulin glargine 100 units/1 mL 35 UNIT SUBCUT (06:25)
--- NOTE | 2025-06-01 07:25 | PC.NURSE ---
Potassium normal this morning.
--- NOTE | 2025-06-01 07:56 | PM.PN ---
Subjective Subjective: seen and examined- short of breath and cough. states he is at baseline MS. no n/v/CP/tatum/d Medications: Reviewed: Yes Medication Review Details: Current Medications Acetaminophen (Acetaminophen 325 Mg Tablet) 650 mg PO Q6H PRN PRN Reason: fever Last Admin: 05/30/25 18:15 Dose: 650 mg Acetaminophen (Acetaminophen 325 Mg Tablet) 650 mg PO Q6H PRN PRN Reason: Mild/Mod Pain Or Temp >/= 101 Albuterol/Ipratropium (Ipratropium-Albuterol 3 Ml Neb) 3 ml INHALATION Q6H PRN PRN Reason: SHORTNESS OF BREATH Amoxicillin/Clavulanate Potassium (Amoxicillin-Clav 875-125 Mg Tablet) 1 tab PO BID [facility]; Protocol Last Admin: 06/01/25 04:23 Dose: 1 tab Carvedilol (Carvedilol 3.125 Mg Tablet) 3.125 mg PO DAILY [facility] Last Admin: 06/01/25 04:23 Dose: 3.125 mg Dexamethasone (Dexamethasone 4 Mg Tablet) 6 mg PO DAILY [facility] Last Admin: 06/01/25 04:23 Dose: 6 mg Finasteride (Finasteride 5 Mg Tablet) 5 mg PO DAILY [facility] Last Admin: 06/01/25 04:23 Dose: 5 mg Fluticasone Propionate (Fluticasone Nasal [place] 16gm Btl) 2 spray INTRANASAL DAILY PRN PRN Reason: ALLERGIES Glucagon (Glucagon 1 Mg/Ml Kit 1 Ml) 1 mg IM ONCE PRN; Protocol PRN Reason: Adult Acute Hypoglycemia Nursing Prot. Remdesivir 100 mg/ Sodium (Chloride) 100 mls @ 100 mls/hr IV Q24H [facility] Stop: 06/03/25 18:59 Last Infusion: 05/31/25 18:50 Dose: Infused Dextrose (D5w) 500 mls @ 0 mls/hr IV ONCE PRN; Protocol PRN Reason: Adult Acute Hypoglycemia Prot Dextrose (D10w) 125 mls @ 750 mls/hr IV PRN PRN; Protocol PRN Reason: Adult Acute Hypoglycemia Nursing Protocol Dextrose (D10w) 250 mls @ 1,000 mls/hr IV PRN PRN; Protocol PRN Reason: Adult Acute Hypoglycemia Nursing Protocol Insulin Glargine (Insulin Glargine 100 Units/1 Ml) [facility] [place] Admin: 06/01/25 06:25 Dose: 35 unit Insulin Human Lispro (Insulin Lispro 100 Unit/1 Ml) 0 unit SUBCUT WM&BEDTIME [facility]; Protocol Last Admin: 06/01/25 07:37 Dose: 4 unit Isosorbide Mononitrate (Isosorbide Mononitrate Er 30 Mg Tablet) 30 mg PO QAM [facility] Last Admin: 06/01/25 04:24 Dose: 30 mg Pantoprazole Sodium (Pantoprazole Dr 40 Mg Tablet) 40 mg PO DAILY [facility] Last Admin: 06/01/25 04:23 Dose: 40 mg Sevelamer Carbonate (Sevelamer 800 Mg Tablet) 800 mg PO BID [facility] Last Admin: 06/01/25 04:23 Dose: 800 mg Vitals/I&O/Wt Last Vital Signs Temp 98.7 F 06/01/25 07:10 Pulse 88 06/01/25 07:10 Resp 18 06/01/25 07:10 BP 141/74 06/01/25 07:10 Pulse Ox 94 06/01/25 07:10 O2 Del Method Room Air 06/01/25 07:10 O2 Flow Rate 2 05/31/25 03:35 05/31/25 06/01/25 06/01/25 22:59 06:59 14:59 Intake Total 460 / 940 Output Total 85 / 235 200 / 435 95 / 95 Balance 375 / 705 -200 / 505 -95 / -95 Weight last 48 hrs Weight 96.615 kg Weight 95.254 kg Weight 95.708 kg Weight 100.244 kg Physical Exam Narrative: Vital signs noted. Patient in bed, no apparent distress. HEENT normocephalic atraumatic. Neck is supple no JVP. Lungs have wheezing and rhonchi bilaterally Heart regular positive S1-S2. Abdomen soft nontender nondistended positive bowel sounds positive right upper quadrant drain. Extremities right upper extremity AV graft with thrill and bruit. Neuro awake and alert, interactice, moving all extremities Data 06/01/25 04:34 06/01/25 04:34 Micro: Microbiology 05/30/25 17:34 Blood Culture - Preliminary Blood NEGATIVE TO DATE 05/30/25 17:30 Blood Culture - Preliminary Blood NEGATIVE TO DATE A&P Assessment and plan 1. End stage renal disease on dialysis: 80-year-old man ESRD 1. Continue dialysis Friday and Friday HD today, remove fluids as tolerated on 2 k bath 2. COVID-19 on remdesivir and steroids. 3. Recent biliary infection with biliary drain on Augmentin. 4. Anemia monitor hemoglobin 5. Thrombocytopenia -improving. Patient has underlying history of CLL. 6. Diabetic control as per hospitalist. 7. Please put on a diabetic renal diet low in potassium. 8. Monitor phosphorus on current Renvela -increase dose to three times a day. The patient was seen and examined using audiovisual equipment with the aid of a nurse patient consented to telehealth and to hemodialysis. Plan: See above. PDMP PDMP Reviewed: Not Reviewed Attestations Medical Necessity Statement*: COVID PNA, ESRD Time Spent in Patient Care: 16 - 35 minutes (>than 50% of time spent in counselling and/or direct pt care on unit). Coding Level of Care Code Acute Code for Chg Fwd Diagnoses End stage renal disease on dialysis N18.6; Z99.2
--- NOTE | 2025-06-01 08:52 | PM.DCS ---
Discharge Providers Date of Admission: 05/31/25 09:06 Date of Discharge: June 01, 2025 Attending Provider at Admission: Doug Vasquez MD Attending Provider at Discharge: Minda López NP Consults: Nephrology Primary Care Provider: Paula Sandoval MD Diagnoses at Discharge Discharge Diagnosis 1. Acute respiratory failure with hypoxia: Details from hospital stay: Acute hypoxic respiratory failure in the setting of COVID-19 infection. The patient required supplemental oxygen upon admission due to hypoxia but was successfully weaned to his baseline room air status within 24 hours, with resolution of acute respiratory compromise. 2. COVID-19 in immunocompromised patient: Details from hospital stay: COVID-19 infection (positive PCR 05/30/25) in an immunocompromised patient (underlying ESRD, DM, CLL). The patient was treated with oral dexamethasone and remdesivir with good clinical response. - Continue dexamethasone 6 mg daily for additional 7 days (total 10 day course) - Stop remdesivir at discharge 3. End stage renal disease on dialysis: Details from hospital stay: Underlying ESRD requiring hemodialysis per Mon-Fri-Fri schedule. Nephrology was consulted during this admission. - Patient will dialyze today (06/01/25) prior to discharge. 4. Biliary infection: Details from hospital stay: Biliary infection, present on admission. Per family, the patient had a recent hospitalization at [facility] where he underwent endoscopic evaluation with removal of a gallstone. A post-procedure biliary drain was placed, and patient was discharged home on Augmentin with plans for interval cholecystectomy once infection has fully resolved. per account from family, no actual records from [facility] were available to verify or review information. During patient's hospital stay there has not been any issues with the biliary drain. On presentation to [facility], the patient reported right upper quadrant abdominal pain. CT abdomen/pelvis on admission revealed no acute intra-abdominal findings. Patient's abdominal pain resolved over the course of the hospital stay. His biliary drain remained functional, and there were no complications or issues with the drain during the stay. Patient was continued on Augmentin 875-125 mg BID. This dose was higher than his home dose of 500-125 mg BID because home dose was not available (or verified) at time of medication reconciliation. However, dose of 500-875 is appropriate for this patient. At discharge, his home dose will be resumed. - Continue Augmentin 500-125 mg BID - Patient will likely need cholecystectomy once biliary infection has been optimally treated - Please keep, and place high importance on attending follow-up appointment with gastroenterology in June 2025. Per patient's family, this appointment is already scheduled. Other Information Additional DC diagnoses/information: # Macrocytic anemia Baseline HGB 10 g/dL range. MCV range 100.6-101.5 Hospital HGB trend -> 10 (05/30) -> 9.4 (05/31) -> 10.6 (06/01) - Stable, at patient's baseline. # Thrombocytopenia Ongoing since at least 2020. Trend since December 2024 60-80K. Required platelet transfusion in April 2025 while hospitalized at [facility]. - Platelet count stable (at patient's baseline) during this hospitalization. He did not exhibit overt signs of bleeding. Platelet Trend: 83K (05/30) -> 66K (05/31) -> 119K (06/01) - Underlying CLL, if exhibiting worsening thrombocytopenia, then will need to follow-up with oncology sooner than his routine visit for evaluation # Hx of CAD s/p 4v-CABG # SSS s/p dual chamber PPM implant Patient did not complain of chest pain or ACS like symptoms during his hospital stay. - Continue [employer] cardioprotective medications at discharge Isosorbide mononitrate 30 mg daily Carvedilol 3.125 mg daily # Diabetes mellitus type 2, insulin-dependent # Steroid-induced hyperglycemia Most recent A1c 7% (01/14/25). Controlled given patient's age and associated co-morbidities. The patient has underlying type 2 diabetes mellitus requiring insulin therapy. His most recent A1c is 7% (12/2024), which is considered well-controlled given his age and co-morbidities. During this hospitalization, he required initiation of dexamethasone for treatment of COVID-19 infection. Following steroid initiation, the patient developed steroid-induced hyperglycemia. Blood glucose ranged 69-364 mg/dL this hospital stay. His home long-acting insulin (glargine) was resumed on admission. In addition, low-dose correctional insulin regimen also initiated, however had to be adjusted to medium dose in response to elevated glucose levels with improvement in glucose levels. At time of discharge, the patient will return to his home insulin regimen (noted below). His hyperglycemia is expected to improve and return to baseline following completion of the steroid course. - Resume [employer] insulin regimen - Hyperglycemia is expected to improve and return to baseline following completion of the steroid course (06/08). - Patient to follow-up with his PCP within 1 week of discharge # Chronic Lymphocytic Leukemia (CLL) Bone marrow aspiration/biopsy confirmed (02/2010), showed evidence of a monoclonal B-cell lymphoproliferative process consistent with chronic lymphocytic leukemia. Received prior treatment (see oncology notes), however also exhibited intolerance to multiple lines of therapy. Currently follows with oncology, Dr. David Meyer (per record last visit 07/07/24). At present time being monitored and not receiving any type of immunotherapy. Per oncology, he may need intermittent treatment for his leukemia if exhibiting worsening thrombocytopenia or rising WBC counts (100-150K) with symptoms. - Continue follow-up with outpatient oncology (last Jun 2024) - He would benefit from another follow-up within 1-2 weeks given his recent acute medical issues and recent (04/2025) need for platelet transfusion Reason for Visit Reason for Visit: ams - lethargic Brief History: Valente Renae is a 80 year old male with PMHx of HTN, CAD (s/p 4v-CABG), SSS (s/p dual chamber PPM), HLD, IDDM 2T, CVA, ESRD (on hemodialysis), CLL, anemia, thrombocytopenia, GERD, BPH. The patient presented to the ED on 05/30/2025 directly from his hemodialysis clinic out of concern for altered mental status and hypoxia. Upon arrival to the ED he was lethargic. He was diagnosed with pneumonia earlier in the day. He required oxygen patient presented to the ED on 06/16 directly from his hemodialysis clinic out of concern for altered mental status and hypoxia specifically he was lethargic Patient presented to [facility] ED on 05/30/2025 directly from his hemodialysis clinic out of concern for altered mental status and hypoxia. During his dialysis session, he became progressively lethargic and confused and developed worsening hypoxia, requiring escalation of supplemental oxygen to 6 L via nasal cannula. Because of his declining mental and respiratory status, he was emergently transferred to the ED for further evaluation. On arrival to the ED, he was initially afebrile, however later developed temperature of 102.9F. Earlier in the day patient was diagnosed with a COVID infection. Given acute hypoxia, progressive respiratory symptoms and confirmed COVID infection, the patient was admitted for further evaluation and treatment. Hospital Course Hospital Course He was initiated on a 10-day course of dexamethasone and started on remdesivir. Temperature was treated with Tylenol. Patient also received bronchodilator treatments as needed. The patient demonstrated marked clinical improvement within 24 hours and was successfully weaned off supplemental oxygen back to room air, where he remained stable. Lethargy resolved and patient was back to his neurological/cognitive baseline. He maintained overall hemodynamic stability. His hospital course was notable for steroid-induced hyperglycemia. Which was monitored and managed accordingly. On presentation to [facility], the patient reported right upper quadrant abdominal pain. CT abdomen/pelvis on admission revealed no acute intra-abdominal findings. Patient's abdominal pain resolved over the course of the hospital stay. His biliary drain remained functional, and there were no complications or issues with the drain during the stay. Nephrology was consulted. Patient dialyzed prior to discharge on 06/01/2025. Physical Exam Narrative: Constitutional: NAD Neurorogic: Awake and alert. Oriented x3. No facial asymmetry, unilateral weakness or speech deficits. Head NC/AT Eyes PERRLA. EOMI. Sclera anicteric. ENT Normal external ears. Hard of hearing. Normal external nose. No epistaxis. MMM. Respiratory Diminished. No accessory muscle use. On room air. Heart / CV Regular. Extremities Trace BLE edema. Abdomen / GI Rounded, Soft, No TTP in RUQ, + BS + biliary drain Genitourinary No calero catheter Musculoskeletal Moves all extremities Skin: Dermal thinning. No open lesions noted. Discharge Data Studies Completed and Pending Completed Studies During Hospitalization Category Date Time Status XR chest 1V portable [id number] Stat Exams 05/30/25 16:12 Completed Pending at discharge Category Date Time Status Blood Culture Stat Lab 05/30/25 17:34 Results Comprehensive Metabolic Panel AM LABS Lab 06/02/25 04:00 Ordered Comprehensive Metabolic Panel AM LABS Lab 06/03/25 04:00 Ordered Magnesium AM LABS Lab 06/02/25 04:00 Ordered Magnesium AM LABS Lab 06/03/25 04:00 Ordered Phosphorus AM LABS Lab 06/02/25 04:00 Ordered Phosphorus AM LABS Lab 06/03/25 04:00 Ordered Urinalysis Stat Lab 05/30/25 16:12 Uncollected Radiology Impressions Chest X-Ray 05/30/25 16:12 IMPRESSION: Stable chest as above. Laboratory Results WBC 13.12 10^3/uL (3.29-11.43) H 06/01/25 04:34 RBC 3.39 10^6/uL (3.85-5.65) L 06/01/25 04:34 Hgb 10.60 g/dL (11.27-16.99) L 06/01/25 04:34 Hct 34.4 % (37-53) L 06/01/25 04:34 MCV 101.5 fl (82-101) H 06/01/25 04:34 MCH 31.3 pg (27-33) 06/01/25 04:34 MCHC 30.8 g/dL (30-55) 06/01/25 04:34 RDW 16.7 % (12.1-15.1) H 06/01/25 04:34 Plt Count 119 10^3/cmm (157-399) L D 06/01/25 04:34 MPV 10.0 fL (7.4-10.4) 06/01/25 04:34 Neut % (Auto) 36.6 % 06/01/25 04:34 Lymph % (Auto) 56.3 % 06/01/25 04:34 [place] % (Auto) 5.9 % 06/01/25 04:34 Eos % (Auto) 0.6 % 06/01/25 04:34 Baso % (Auto) 0.2 % 06/01/25 04:34 Neut # (Auto) 4.81 10^3/uL (1.8-7.7) 06/01/25 04:34 Lymph # (Auto) 7.4 10^3/uL (0.8-4.8) H 06/01/25 04:34 [place] # (Auto) 0.8 10^3/uL (0.2-0.9) 06/01/25 04:34 Eos # (Auto) 0.1 10^3/uL (0.0-0.8) 06/01/25 04:34 Baso # (Auto) 0.0 10^3/uL (0.0-0.1) 06/01/25 04:34 Nucleated RBC % (auto) 0 % 06/01/25 04:34 Nucleated RBCs # 0.0 /100WBC 06/01/25 04:34 Sodium 134 mmol/L (136-145) L 06/01/25 04:34 Sodium 136 mmol/L (136-145) 06/01/25 04:34 Potassium 4.8 mmol/L (3.5-5.1) 06/01/25 04:34 Potassium 5.1 mmol/L (3.5-5.1) 06/01/25 04:34 Chloride 92 mmol/L (98-107) L 06/01/25 04:34 Chloride 93 mmol/L (98-107) L 06/01/25 04:34 Carbon Dioxide 29 mmol/L (22-29) 06/01/25 04:34 Carbon Dioxide 30 mmol/L (22-29) H 06/01/25 04:34 Anion Gap 17.8 (5-19) 06/01/25 04:34 Anion Gap 18.1 (5-19) 06/01/25 04:34 BUN 37 mg/dL (8-23) H 06/01/25 04:34 BUN 40 mg/dL (8-23) H 06/01/25 04:34 Creatinine 4.4 mg/dL (0.7-1.2) H 06/01/25 04:34 Creatinine 4.6 mg/dL (0.7-1.2) H 06/01/25 04:34 GFR Calculation Not Reportable 06/01/25 04:34 GFR Calculation Not Reportable 06/01/25 04:34 Glucose 166 mg/dL (65-115) H 06/01/25 04:34 Glucose 169 mg/dL (65-115) H 06/01/25 04:34 POC Glucose 153 mg/dL (70-110) H 06/01/25 06:12 Lactic Acid 2.3 mmol/L (0.5-2.2) H 05/30/25 16:00 Lactic Acid (Sepsis) 0.9 mmol/L (0.5-2.2) 05/30/25 19:00 Lactate 1.4 mmol/L (0.5-2.2) 05/31/25 11:06 Calculated Osmolality 292 mOsm/kg (285-295) 06/01/25 04:34 Calculated Osmolality 295 mOsm/kg (285-295) 06/01/25 04:34 Calcium 9.0 mg/dL (8.5-10.5) 06/01/25 04:34 Calcium 9.1 mg/dL (8.5-10.5) 06/01/25 04:34 Phosphorus 5.3 mg/dL (2.5-4.5) H 06/01/25 04:34 Magnesium 2.2 mg/dL (1.7-2.3) 06/01/25 04:34 Total Bilirubin 0.7 mg/dL (0.15-1.2) 06/01/25 04:34 AST 9 U/L (0-40) 06/01/25 04:34 ALT 6 U/L (0-41) 06/01/25 04:34 Alkaline Phosphatase 105 U/L (40-130) 06/01/25 04:34 Lactate Dehydrogenase 190 U/L (135-225) 05/31/25 11:06 Creatine Kinase 45 U/L (39-308) 05/30/25 16:00 Total Protein 5.8 g/dL (6.6-8.7) L 06/01/25 04:34 Albumin 4.1 g/dL (3.5-5.2) 06/01/25 04:34 Globulin 1.7 g/dL (1.3-4.6) 06/01/25 04:34 Procalcitonin 0.91 ng/mL (0-0.5) H 05/31/25 11:06 Hep Bs Antigen Non-reactive (Nonreactive) 06/01/25 04:34 Hep Bs Antibody < 3.5 (11.5-1000) L 06/01/25 04:34 Hepatitis C Antibody Non-reactive (Nonreactive) 06/01/25 04:34 Imaging CXR: Radiologist's impression: Date of Service: 05/30/25 Procedure(s): XR chest 1V portable REASON FOR EXAM: dyspnea/cough Findings: Chest is unchanged compared to the examination of 9:37 a.m. 05/30/2025. No acute chest abnormality is identified. Impression: Stable chest as above. CT Abd/Pel: Radiologist's impression: Date of Service: 05/30/25 Procedure(s): CT abdomen pelvis wo con [id number] HISTORY: ruq pain, recent surgery/biliary drain, fever, nausea COMPARISON: 05/18/2025, 01/13/2025 Lower thorax: Small bilateral layering pleural effusions have increased in size since 05/18/2025. Mild pulmonary congestion. Heart is moderately enlarged. Prior CABG. Defibrillator and pacer wires are noted in the RIGHT heart. Hiatal hernia, small. Liver: Noncontrast liver with granuloma. No intrahepatic duct dilatation is identified. Gallbladder: Gallbladder is present and now contracted around stones. Cholecystotomy tube is been placed since 05/18/2025. Pigtail appears appropriate. There is no fluid collection along the course of the catheter. Previously described calcification in the distal common bile duct is no longer present. Common bile duct measures 10 mm. Pancreas: Normal as visualized. There is a small amount of fat infiltration surrounding the pancreatic head. Spleen: Enlarged spleen with granulomata. Spleen measures 18.7 cm in length. Adrenal glands: Normal. No mass. Right kidney: There is a large peripherally calcified heterogeneous mass associated with the RIGHT kidney which has been previously described. Mass measures 7.0 x 7.2 cm and is arising from the lateral kidney. There is slight compression upon the kidney. There is no obstruction. There are a few scattered too small to characterize hypodensities. Left kidney: Mild perinephric stranding. High density mass in the LEFT renal pelvis measures 4.0 x 3.2 cm. This is been previously described on prior CTs. Mass has slowly increased in size since 2020. Aorta: Moderate to severe atherosclerosis abdominal aorta. No aneurysm. Atherosclerosis continues into the common iliac arteries. Small central mesenteric lymph nodes are identified. Small retroperitoneal lymph nodes just below the level of the renal veins. There is mild inflammation and fat stranding surrounding these lymph nodes. GI tract: No GI tract obstruction. No colitis identified. Abdominal wall: Subcutaneous inflammation LEFT abdominal wall probably injection sites. No mass. Pelvis: There is mild presacral soft tissue thickening which was present on the most recent study. New since 2023. No mass or adenopathy. Small amount of free fluid in the pelvis. Osseous structures: Osteopenia. Degenerative scoliosis lumbar spine. Impression Cholecystotomy tube has been placed since the prior CT of 05/18/2025. Gallbladder is collapsed around stones within the gallbladder. No collection surrounding the cholecystotomy drain. Previously described common bile duct stone is no longer identified. Small bilateral pleural effusions have increased slightly in size since 05/18/2025. Mild pulmonary venous congestion. Splenomegaly. Hepatic and splenic granulomata. Mild edema and fat stranding in the retroperitoneum surrounding the aorta near the level of the renal arteries. There are also small lymph nodes which have become more prominent. Probably reactive adenopathy. No abscess is identified. Reidentified is a solid mass in the LEFT renal pelvis which is slowly increasing in size since 2020. This mass has been previously described. Peripherally calcified mass RIGHT kidney is stable. Small amount of free fluid in the pelvis. Procedures Performed 06/01/2025 Hemodialysis treatment Vitals Last Vital Signs Temp 98.7 F 06/01/25 07:10 Pulse 88 06/01/25 07:10 Resp 18 06/01/25 07:10 BP 141/74 06/01/25 07:10 Pulse Ox 94 06/01/25 07:10 O2 Del Method Room Air 06/01/25 07:10 O2 Flow Rate 2 05/31/25 03:35 Discharge Plan Discharge Patient Disposition: Home Condition: Stable Prescriptions: New dexamethasone 4 mg Tablet 6 mg PO DAILY Qty: 7 0RF Continued cholecalciferol (vitamin D3) 25 mcg (1,000 unit) capsule 50 mcg PO DAILY finasteride 5 mg tablet 5 mg PO DAILY insulin glargine 100 unit/mL (3 mL) insulin pen 35 unit SUBCUT QAM docusate sodium [Colace] 100 mg Capsule 100 mg PO DAILY PRN (Reason: Constipation) fluticasone propionate [Flonase Allergy Relief] 50 mcg/actuation spray,suspension 2 spray INTRANASAL DAILY PRN (Reason: allergies) Novolin R Regular U100 Insulin 100 unit/mL Solution See Rx Instructions .ROUTE .COMPLEX Rx Instructions: sliding scale 3-18 units bid loratadine [Claritin] 10 mg Tablet 10 mg PO DAILY diclofenac sodium 1 % Gel 4 g TOPICAL QID PRN (Reason: Pain) tamsulosin 0.4 mg capsule 0.8 mg PO QPM furosemide 80 mg Tablet 80 mg PO QAM Rx Instructions: except for dialysis days pantoprazole 40 mg tablet,delayed release (DR/EC) 40 mg PO DAILY nitroglycerin 0.4 mg Tablet, Sublingual 0.4 mg SUBLINGUAL Q5M PRN (Reason: heart issues) Rx Instructions: do not exceed 3 doses per episode folic acid 1 mg Tablet 1 mg PO DAILY isosorbide mononitrate 30 mg Tablet Extended Release 24 Hr 30 mg PO QAM ondansetron 4 mg tablet,disintegrating 4 mg PO TID PRN (Reason: nausea and vomiting) Qty: 30 0RF acetaminophen [Tylenol Extra Strength] 500 mg Tablet 500 mg PO Q6H PRN (Reason: Abdominal Pain) carvedilol 3.125 mg Tablet 3.125 mg PO DAILY Rx Instructions: non dialysis day amoxicillin-pot clavulanate [Augmentin] 500-125 mg Tablet 1 tab PO BID sevelamer carbonate 800 mg Tablet 500 mg PO TID Rx Instructions: must administer with a meal/food Held hydrocodone-acetaminophen 5-325 mg tablet 1 tab PO Q8H PRN (Reason: pain) Qty: 14 0RF Hold Instructions: Resume on 06/08/25. Controlled med. He is to follow up with his PCP. Will defer to PCP to continue. This admission was not related to pain. Rx Instructions: did not started yet Discontinued Paxlovid 150 mg (6)- 100 mg (5) tablets,dose pack See Rx Instructions .ROUTE .COMPLEX Qty: 11 0RF Rx Instructions: orally per package directions has not started yet Sr Risk Management Consultant OK for DC: Nephrology Discharge Order = DC NOW: Discharge Order (Routine); Ordered 06/01/25 Ordered By: Minda López Referrals: Paula Sandoval MD [Primary Care Provider, [facility]] - 06/20/25 10:00 am Referral Note: APPOINTMENT FOR LABS ON JUN 13 AT 8;[address] Discharge Diet: As Directed Discharge Activity: Resume usual activity Patient Instructions: Dexamethasone (By mouth), COVID-19 (Coronavirus Disease 2019) (GEN), Opioid Safety, Patient Portal & [place] Instructions Plan of Treatment: Diet: renal - diabetic diet with 1.5L daily fluid restriction Discharge Attestations Time Spent in Discharge Care*: other (Time spent in discharge greater than 30 minutes. Total of 47 minutes spent on discharging patient and reviewing records for accuracy and ensuring appropriate follow-up.) Quality Metrics Clinical Quality Measures [ No reported AMI, CVA or VTE this stay] Coding Level of Care Code 61444 Diagnoses Acute respiratory failure with hypoxia J96.01 COVID-19 in immunocompromised patient U07.1; D84.9 End stage renal disease on dialysis N18.6; Z99.2 Biliary infection K83.09 Time Spent (min) 47
== END 2025-06-01 15:35 | disposition home or self-care (01) | DRG 177 ==
LOC: ER 17:41 → MEDSURG 22:06 → ER IP 05-31 05:14
PROVIDERS: Internal Medicine Nephrology; Admitting Provider Student in an Organized Health Care Education/Training Program; Emergency Provider Family Medicine; PCP Family Medicine; Visit Provider Nurse Practitioner Gerontology
DX: U07.1 COVID-19 (principal); J96.01 Acute respiratory failure with hypoxia; N18.6 End stage renal disease; D84.9 Immunodeficiency, unspecified; I12.0 Hypertensive chronic kidney disease with stage 5 chronic kidney disease or end stage renal disease; C91.10 Chronic lymphocytic leukemia of B-cell type not having achieved remission; K83.09 Other cholangitis; E11.22 Type 2 diabetes mellitus with diabetic chronic kidney disease; D63.1 Anemia in chronic kidney disease; D69.6 Thrombocytopenia, unspecified; I49.5 Sick sinus syndrome; E11.65 Type 2 diabetes mellitus with hyperglycemia; T38.0X5A Adverse effect of glucocorticoids and synthetic analogues, initial encounter; I65.23 Occlusion and stenosis of bilateral carotid arteries; I25.10 Atherosclerotic heart disease of native coronary artery without angina pectoris; N40.1 Benign prostatic hyperplasia with lower urinary tract symptoms; K21.9 Gastro-esophageal reflux disease without esophagitis; E78.5 Hyperlipidemia, unspecified; Z79.4 Long term (current) use of insulin; Z95.0 Presence of cardiac pacemaker; Z95.1 Presence of aortocoronary bypass graft; Z98.61 Coronary angioplasty status; Z86.16 Personal history of COVID-19; Z87.891 Personal history of nicotine dependence
CPT/HCPCS: 36415; 36416; 71045; 80048; 80053; 82550; 82962; 83605; 83615; 83735; 84100; 84145; 85025; 86706; 86803; 87040; 87340; 90935; 93005; 94640; 94664; 96372; 99285; G0378; J0248; J1100; J1815; J8540; J9999; Q3014